=== PATIENT | male | born 1970 | race Caucasian/White ===

== ENCOUNTER 2023-01-13 15:56 | Outpatient (OUT) | payer OTHER, MEDICAID, SELFPAY ==
[2023-01-13 16:40] LABS: Anion Gap 14.7; BUN Creatinine Ratio 22.5; Calcium 9.9 mg/dL (8.5-10.1); Carbon Dioxide 24.6 mmol/L (21.0-32.0); Chloride 100 mmol/L (98-107); Estimated GFR (African America >60 (>=60); Estimated GFR (Non-African Ame >60 (>=60); Glucose 247 mg/dL (74-106); Potassium 4.3 mmol/L (3.5-5.1); Sodium 135 mmol/L (136-145)
[2023-01-13 16:43] LABS: Estimated Average Glucose 186 mg/dL; Glycohemoglobin A1C 8.1 % (4.5-6.2)
== END 2023-01-13 15:57 | disposition home or self-care (01) ==
PROVIDERS: PCP Nurse Practitioner; Visit Provider Nurse Practitioner
DX: E11.9 Type 2 diabetes mellitus without complications (principal)
CPT/HCPCS: 36415; 80048; 83036

== ENCOUNTER 2023-08-06 14:03 | Emergency (ER) | payer OTHER, MEDICAID, SELFPAY ==
[2023-08-06 14:06] VITALS: BP 182/100; PULSE 74; RESP 20; O2SAT 97; BMI 39.5
--- NOTE | 2023-08-06 14:16 | ED_ITS ---
HPI - Dental/Oral General Chief complaint: Dental/Oral Stated complaint: Dental Pain Time Seen by Provider: 08/06/23 14:04 Source: patient Mode of arrival: walk-in Limitations: no limitations History of Present Illness HPI Narrative: Patient is a 52-year-old male with a history of diabetes who presents to the ER for pain in tooth #14 and 15. He is currently receiving chemotherapy and states his teeth are rotting as a result. He has multiple dental caries noted diffusely throughout the mouth. No drainage, fevers or vomiting. No difficulty swallowing. He states he has had Pain and swelling for 3 days. Related Data Home Medications Medication Instructions Recorded Confirmed dapagliflozin propanediol 10 mg 10 mg PO DAILY 08/06/23 08/06/23 tablet (Farxiga) insulin glargine 100 unit/mL (3 35 unit subcut BID 08/06/23 08/06/23 mL) subcutaneous pen (Lantus Solostar U-100 Insulin) lisinopril 10 mg tablet mg 08/06/23 lisinopril 20 mg tablet 20 mg PO DAILY 08/06/23 08/06/23 Previous Rx's Medication Instructions Recorded amoxicillin 500 mg capsule 500 mg PO TID 10 days #30 caps 08/06/23 hydrocodone 5 mg-acetaminophen 325 1 tab PO Q6H PRN pain 3 days #12 08/06/23 mg tablet tabs Allergies Allergy/AdvReac Type Severity Reaction Status Date / Time No Known Drug Allergies Allergy Verified 08/06/23 14:10 Review of Systems ROS Constitutional Denies: fever or chills Ears, nose, mouth, and throat Denies: throat pain or nasal congestion Cardiovascular Denies: chest pain Respiratory Denies: shortness of breath or cough Gastrointestinal Denies: nausea, vomiting or difficulty swallowing Integumentary/Breast Denies: rash Neurological Denies: headache Hematologic/Lymphatic Denies: easy bruising or easy bleeding PFSH PFSH Social History Smoking status: Never smoker Exam Narrative Exam Narrative: Gen.: Awake, alert, in no distress Head: Normocephalic, atraumatic ENT: Moist mucous membranes, No mandibular or maxillary swelling. Diffuse dental caries noted with tenderness and mild swelling of the gums around tooth #14 and 15 with teeth eroded to the gumline. Root exposed. No abscess or drainage noted. No redness or swelling under the tongue. Airway widely open and patent with no trismus or drooling. Respiratory: No respiratory distress Extremities: Moves extremities equally Psych: Normal mood and affect Neuro: No focal neuro deficit Skin: Warm, dry, intact Constitutional Vital Signs, click to edit/add: Last Vital Signs Pulse 74 08/06/23 14:06 Resp 20 08/06/23 14:06 BP 182/100 H 08/06/23 14:06 Pulse Ox 97 08/06/23 14:06 Course Vital Signs Vital signs: Vital Signs Pulse Rate 74 08/06/23 14:06 Respiratory Rate 20 08/06/23 14:06 Blood Pressure 182/100 H 08/06/23 14:06 Pulse Oximetry 97 08/06/23 14:06 Pulse Rate 74 08/06/23 14:06 Respiratory Rate 20 08/06/23 14:06 Blood Pressure 182/100 H 08/06/23 14:06 Pulse Oximetry 97 08/06/23 14:06 MDM - Dental/Oral MDM Narrative Medical decision making narrative: Patient treated for dental caries with short course of analgesics, OARRS reviewed. He was given topical analgesia and amoxicillin for antibiotic co verage. Follow-up dental and return to the ER if symptoms change or worsen. No evidence of dental abscess on exam. I, Dr Alarcon, have reviewed the above progress note and course of action in the ER; agree with the above. I have gone over history and physical, and discussed disposition and treatment plan with the patient. Medical Records Attestation: I reviewed the patient's medical records. Discharge Plan Discharge Chief Complaint: Dental/Oral Clinical Impression: Dental caries, Toothache Patient Disposition: Home, Self-Care Time of Disposition Decision: 14:13 Condition: Good Prescriptions / Home Meds: New amoxicillin 500 mg capsule 500 mg PO TID 10 Days Qty: 30 0RF hydrocodone-acetaminophen 5-325 mg tablet 1 tab PO Q6H PRN (Reason: pain) 3 Days Qty: 12 0RF Rx Instructions: DX: K08.89 No Action dapagliflozin propanediol [Farxiga] 10 mg tablet 10 mg PO DAILY lisinopril 20 mg tablet 20 mg PO DAILY lisinopril 10 mg tablet insulin glargine [Lantus Solostar U-100 Insulin] 100 unit/mL (3 mL) insulin pen 35 unit SUBCUT BID Instructions: Toothache (ED) Additional Instructions: Follow up with your dentist Stand Alone Forms: Portal Instructions Referrals: Buffy Chung NP [Primary Care Provider] - 1 week Discharge Date/Time: 08/06/23 14:24
[2023-08-06] MEDS: BENZOCAINE 30 ML, lidocaine HCL 15 ML MM (14:21)
== END 2023-08-06 14:24 | disposition home or self-care (01) ==
PROVIDERS: Emergency Provider Emergency Medicine; PCP Nurse Practitioner
DX: K02.9 Dental caries, unspecified (principal); K08.89 Other specified disorders of teeth and supporting structures; E11.9 Type 2 diabetes mellitus without complications; Z79.899 Other long term (current) drug therapy; Z79.4 Long term (current) use of insulin
CPT/HCPCS: 99283

== ENCOUNTER 2023-08-07 16:15 | Outpatient (OUT) | payer OTHER, MEDICAID, SELFPAY ==
[2023-08-07 16:43] LABS: Bilirubin Urine NEGATIVE (NEGATIVE); Blood Urine NEGATIVE (NEGATIVE); Clarity Urine CLEAR (CLEAR); Color Urine YELLOW (YELLOW); Glucose Urine UA >=1000 mg/dL (NEGATIVE); Ketones Urine NEGATIVE (NEGATIVE); Leukocyte Esterase Urine NEGATIVE (NEGATIVE); Nitrite Urine NEGATIVE (NEGATIVE); Protein Urine NEGATIVE (NEG/TRACE); Specific Gravity Urine 1.015 (1.005-1.025); pH Urine 5.5 (5.0-9.0)
[2023-08-07 16:51] LABS: Creatinine Urine Random 77.04 mg/dL (20.00-300.00); Microalbum Creatinine Ratio Ur 51.9 mg/g (0.0-29.9)
[2023-08-07 17:02] LABS: Urine Microscopic Indicated NO
[2023-08-07 17:28] LABS: Prostate Specific Antigen Dx 0.86 ng/mL (<=4.00)
== END 2023-08-07 16:16 | disposition home or self-care (01) ==
LOC: LAB 16:17
PROVIDERS: PCP Nurse Practitioner; Visit Provider Nurse Practitioner
DX: K21.9 Gastro-esophageal reflux disease without esophagitis (principal); I10 Essential (primary) hypertension; Z12.5 Encounter for screening for malignant neoplasm of prostate; E11.65 Type 2 diabetes mellitus with hyperglycemia; Z79.4 Long term (current) use of insulin; C92.10 Chronic myeloid leukemia, BCR/ABL-positive, not having achieved remission; E87.1 Hypo-osmolality and hyponatremia; E78.2 Mixed hyperlipidemia
CPT/HCPCS: 36415; 81003; 82043; 82570; 84153

== ENCOUNTER 2023-09-11 15:19 | Emergency (ER) | payer OTHER, SELFPAY ==
[2023-09-11 15:43] VITALS: BP 122/87; PULSE 69; TEMP 36.4; O2SAT 99; BMI 39.3
--- NOTE | 2023-09-11 16:13 | XR_ITS ---
The [address] [address] Patient Name: DERRELL MERRITT MRN: [id number] date: 1970 Sex: M Assigned Patient Location: ED.MAIN Current Patient Location: Accession/Order Number: [id number] Exam Date: 09/11/2023 16:03 Report Date: 09/11/2023 16:30 At the request of: KATHERINE PIERRE Procedure: XR foot RT min 3V Exam: Radiographs: XR foot RT min 3V Reason for exam: pain Comparison: None XR/XR foot RT min 3V IMPRESSION: Mild degenerative changes scattered throughout the right foot. Atherosclerotic calcifications. Remainder of the right foot radiographs is unremarkable. Electronically authenticated by: MOUNIKA TEE Date: 09/11/2023 16:30
--- NOTE | 2023-09-11 16:17 | ED_ITS ---
HPI - Extremity Problem General Chief complaint: Extremity Problem, Nontraumatic Stated complaint: lower extremity pain Time Seen by Provider: 09/11/23 16:14 Source: patient Mode of arrival: walk-in Limitations: no limitations History of Present Illness HPI Narrative: This patient is here for evaluation of pain on the plantar surface of his right foot. He is not known to have any injury trauma or change in activity. He has no history of gout. The pain is on the plantar surface only. It does not hurt unless he is standing on it. He he is known not noticed any redness or deformity. It is on the plantar surface and not the medial surface of the metatarsal phalangeal joint. He has no pain in his ankles or his other joints. He was triaged to x-ray by the nursing staff. Related Data Home Medications ?Medication ?Instructions ?Recorded ?Confirmed dapagliflozin propanediol 10 mg 10 mg PO DAILY 08/06/23 09/11/23 tablet (Farxiga) insulin glargine 100 unit/mL (3 35 unit subcut BID 08/06/23 09/11/23 mL) subcutaneous pen (Lantus Solostar U-100 Insulin) lisinopril 20 mg tablet 20 mg PO DAILY 08/06/23 09/11/23 chemo trial drug 1 pill PO DAILY 09/11/23 09/11/23 Allergies Allergy/AdvReac Type Severity Reaction Status Date / Time No Known Drug Allergies Allergy Verified 09/11/23 15:41 PFSH PFS Social History Smoking status: Never smoker Exam Narrative Exam Narrative: Awake alert pleasant. The dorsal surface of the foot is completely normal. I can manipulate the great toe with no symptomatic discomfort whatsoever there is no erythema or swelling in this joint. There is no pain over the entire plantar surface of the foot except just proximal to the great toe metatarsophalangeal joint. There is a lot of callus formation that is developed over the years in this area and the point of pressure bearing when he walks. Constitutional Vital Signs, click to edit/add: Last Vital Signs Temp 97.5 F L 09/11/23 15:43 Pulse 69 09/11/23 15:43 Resp 14 09/11/23 15:43 BP 122/87 09/11/23 15:43 Pulse Ox 99 04/04/24 15:43 O2 Del Method Room Air 09/11/23 15:43 Course Vital Signs Vital signs: Vital Signs Temperature 97.5 F L 09/11/23 15:43 Pulse Rate 69 09/11/23 15:43 Respiratory Rate 14 09/11/23 15:43 Blood Pressure 122/87 09/11/23 15:43 Pulse Oximetry 99 09/11/23 15:43 Oxygen Delivery Method Room Air 09/11/23 15:43 Temperature 97.5 F L 09/11/23 15:43 Pulse Rate 69 09/11/23 15:43 Respiratory Rate 14 09/11/23 15:43 Blood Pressure 122/87 09/11/23 15:43 Pulse Oximetry 99 09/11/23 15:43 Oxygen Delivery Method Room Air 09/11/23 15:43 MDM - Extremity (Nontraumatic) MDM Narrative Medical decision making narrative: Patient presents with pain on the plantar surface of the foot. There are some prominent sesamoid bones at that joint and this is where he is point tender and he has a lot of callus formation there. I am to refer him to podiatry. We did not see any fractures there is no evidence of gout or other joint involvement. 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 May use anti-inflammatories Referrals: Buffy Chung NP [Primary Care Provider] - 1 week
== END 2023-09-11 16:27 | disposition home or self-care (01) ==
PROVIDERS: Emergency Provider Emergency Medicine Emergency Medical Services; PCP Nurse Practitioner
DX: M79.671 Pain in right foot (principal); Z79.4 Long term (current) use of insulin; Z79.60 Long term (current) use of unspecified immunomodulators and immunosuppressants
CPT/HCPCS: 73630; 99283

== ENCOUNTER 2023-10-10 18:09 | Emergency (ER) | payer OTHER, SELFPAY ==
[2023-10-10 18:14] VITALS: BP 176/87; PULSE 64; TEMP 36.3; O2SAT 96; BMI 37.9
--- OUTSIDE RECORDS SUMMARY | 2023-10-10 18:29 | XMS_ITS | CCD ---
Author Organization [facility] Care Team Providers Care Gas Engineer Name Role Phone Emma Tuttle RN Unavailable Mare Howell MD, PhD, Sudipto Unavailable Aman Pack Primary Care Provider [phone] AICHHOLZ, POLYSOMNOGRAPHY TECHNOLOGIST BUFFY Admitting Unavailable AICHHOLZ, POLYSOMNOGRAPHY TECHNOLOGIST BUFFY Attending Unavailable AICHHOLZ, POLYSOMNOGRAPHY TECHNOLOGIST BUFFY Primary Care Unavailable AICHHOLZ, POLYSOMNOGRAPHY TECHNOLOGIST BUFFY Admitting Unavailable AICHHOLZ, POLYSOMNOGRAPHY TECHNOLOGIST BUFFY Attending Unavailable AICHHOLZ, POLYSOMNOGRAPHY TECHNOLOGIST BUFFY Primary Care Unavailable AICHHOLZ, POLYSOMNOGRAPHY TECHNOLOGIST BUFFY Consulting Unavailable AICHHOLZ, POLYSOMNOGRAPHY TECHNOLOGIST BUFFY Admitting Unavailable AICHHOLZ, POLYSOMNOGRAPHY TECHNOLOGIST BUFFY Attending Unavailable AICHHOLZ, POLYSOMNOGRAPHY TECHNOLOGIST BUFFY Primary Care Unavailable AICHHOLZ, POLYSOMNOGRAPHY TECHNOLOGIST BUFFY Consulting Unavailable AICHHOLZ, POLYSOMNOGRAPHY TECHNOLOGIST BUFFY Primary Care Unavailable DR HUONG HERNÁNDEZ Admitting Unavailable DR HUONG HERNÁNDEZ Attending Unavailable DR SHANEL GOMEZ Consulting Unavailable LUCAS .JENNIFER Consulting Unavailabl e AICHHOLZ, POLYSOMNOGRAPHY TECHNOLOGIST BUFFY Primary Care Unavailable DR HUONG HERNÁNDEZ Admitting Unavailable DR HUONG HERNÁNDEZ Attending Unavailable VINAYAK .DR BORJA Consulting Unavailable AICHHOLZ, POLYSOMNOGRAPHY TECHNOLOGIST BUFFY Admitting Unavailable AICHHOLZ, POLYSOMNOGRAPHY TECHNOLOGIST BUFFY Attending Unavailable AICHHOLZ, POLYSOMNOGRAPHY TECHNOLOGIST BUFFY Primary Care Unavailable Emma Tuttle RN Unavailable Mare Howell MD, PhD, Sudipto Unavailable [phone] Aman Pack Primary Care Provider ELGAFY, ANGUS Referring Unavailable ELGAFY, ANGUS Referring Unavailable ELGAFY ANGUS Attending Unavailable Emma Tuttle RN Unavailable Unavailabl e Buffy Chung Primary Care Provider Buffy Chung Attending Provider [phone] Buffy Chung Referring Provider Buffy Chung Primary Care Unavailable Buffy Chung Attending Unavailable Buffy Chung Referring Unavailable AichBuffy vasquez J Admitting Unavailable YAN DURHAM Attending Unavailable MARVA YAN Trip Referring Unavailable AICHHOLLurdes, BUFFY Abiodun Primary Care Unavailable BUFFY CHUNG Attending Unavailable BUFFY CHUNG Attending Unavailable YAN DURHAM Attending Unavailable YAN DURHAM Referring Unavailable AICHHOLZ, BUFFY J Primary Care Unavailable Nigel Solorzano Attending Unavailable Nigel Solorzano Referring Unavailable AICHHOLBUFFY Chatman Primary Care Unavailable Aichholz WASTE RECLAIMER-Buffy ALFARO Primary Care Provider BUFFY CHUNG Referring Unavailable AICHHOLBUFFY Chatman Primary Care Unavailable YAN DURHAM Attending Unavailable BUFFY CHUNG Referring Unavailable AICHHOLLurdes, BUFFY J Primary Care Unavailable AichBuffy vasquez CNP Primary Care Provider [phone] SIRENA AMAN A Primary Care Unavailable LYNDA, SUDIPTO Referring Unavailable NADERER, AMAN A Primary Care Unavailable LYNDA, SUDIPTO Referring Unavailable LYNDA, SUDIPTO Referring Unavailable NADERERAMAN A Primary Care Unavailable NADERER, AMAN A Primary Care Unavailable LYNDA, SUDIPTO Attending Unavailable LYNDA, SUDIPTO Referring Unavailable LYNDA, SUDIPTO Referring Unavailable NADERERAMAN A Primary Care Unavailable KYLEE DALAL Attending Unavailable MELYERER, AMAN A Primary Care Unavailable LYNDA, SUDIPTO Referring Unavailable NADERER, AMAN A Primary Care Unavailable LYNDA, SUDIPTO Referring Unavailable NADERER, AMAN A Primary Care Unavailable KOBI LEE Attending Unavailable SIRENA AMAN A Primary Care Unavailable LYNDA, SUDIPTO Referring Unavailable NADERER, AMAN A Primary Care Unavailable MULUGETA, KYLEE Attending Unavailable MULUGETA, KYLEE Referring Unavailable NADERER, AMAN A Primary Care Unavailable AICHHOLZ, BUFFY BERNSTEIN Primary Care Unavailable LYNDA, SUDIPTO Referring Unavailable AICHHOLZ, BUFFY BERNSTEIN Primary Care Unavailable LYNDA, SUDIPTO Attending Unavailable LYNDA, SUDIPTO Referring Unavailable LYNDA, SUDIPTO Referring Unavailable NADERER, AMAN A Primary Care Unavailable LYNDA, SUDIPTO Referring Unavailable NADERER, AMAN A Primary Care Unavailable NADERER, AMAN A Primary Care Unavailable LYNDA, SUDIPTO Referring Unavailable LYNDA, SUDIPTO Attending Unavailable LYNDA, SUDIPTO Referring Unavailable NADERER, AMAN A Primary Care Unavailable MULUGETA, KYLEE Referring Unavailable NADERER, AMAN A Primary Care Unavailable NADERER, AMAN A Primary Care Unavailable LYNDA, SUDIPTO Referring Unavailable NADERER, AMAN A Primary Care Unavailable LYNDA, SUDIPTO Referring Unavailable NADERER, AMAN A Primary Care Unavailable LYNDA, SUDIPTO Referring Unavailable NADERER, AMAN A Primary Care Unavailable LYNDA, SUDIPTO Referring Unavailable MULUGETA, KYLEE Attending Unavailable MULUGETA, KYLEE Referring Unavailable NADERER, AMAN A Primary Care Unavailable NADERER, AMAN A Primary Care Unavailable LYNDA, SUDIPTO Referring Unavailable LYNDA, SUDIPTO Attending Unavailable NADERER, AMAN A Primary Care Unavailable LYNDA, SUDIPTO Referring Unavailable AICHHOLZ, BUFFY BERNSTEIN Primary Care Unavailable LYNDA, SUDIPTO Referring Unavailable AICHHOLZ, BUFFY BERNSTEIN Primary Care Unavailable LYNDA, SUDIPTO Referring Unavailable LYNDA, SUDIPTO Attending Unavailable NADERER, AMAN A Primary Care Unavailable LYNDA, SUDIPTO Referring Unavailable MULUGETA, KYLEE Attending Unavailable NADERER, AMAN A Primary Care Unavailable NADERER, AMAN A Primary Care Unavailable JESUS, CRUZITO Referring Unavailable LYNDA, SUDIPTO Referring Unavailable NADERER, AMAN A Primary Care Unavailable AICHHOLZ, BUFFY BERNSTEIN Primary Care Unavailable LYNDA, SUDIPTO Referring Unavailable LYNDA, SUDIPTO Referring Unavailable JOSERAMAN A Primary Care Unavailable NADERER, AMAN A Primary Care Unavailable DERRELL CONSTANTINO Admitting Unavailable DERRELL CONSTANTINO Attending Unavailable NADEREAMAN Villafana Primary Care Unavailable SUBHAS, RAFAEL Admitting Unavailable SUBHAS, RAFAEL Attending Unavailable SIMPFENDORFER, MARY Admitting Unavailable SIMPFENDORFER, MARY Attending Unavailable NADMORISR, AMAN A Primary Care Unavailable Allergies Allergy Classification Reported Allergen(s) Allergy Type Date of Onset Reaction(s) Facility (1 source) ALLERGIES NOT ON FILE; Translations: [ALLERGIES NOT ON FILE] Propensity to adverse reactions (disorder) [facility] Repository (4 sources) Morphine; Translations: [MORPHINE] Drug Allergy 3 Nausea And Vomiting [facility] Repository (12 sources) OPIOIDS - MORPHINE ANALOGUES; Translations: [OPIOIDS - MORPHINE ANALOGUES] Propensity to adverse reactions to drug (disorder) 3 Vomiting, GI Upset, Nausea And Vomiting [facility] Repository Medications Current Medications Medication Drug Class(es) Dates Sig (Normalized) Sig (Original) amLODIPine 10 mg oral tablet (20 sources) Dihydropyridine Calcium Channel Radha Start: 05-22-2023 End: 08-20-2023 amLODIPine (NORVASC) 10 mg tablet Take 10 mg by mouth. 0 05/22/2023 Active Start: 03-20-2023 take 1 tablet by juan th in the morning amLODIPine (NORVASC) 5 mg tablet Indications: Primary hypertension Take 1 tablet (5 mg total) by mouth in the morning. 90 tablet 3 03/20/2023 Active Start: 05-14-2022 End: 08-12-2022 take 1 tablet by mouth once daily amLODIPine (NORVASC) 10 mg tablet Indications: CML (chronic myeloid leukemia) (HCC) Take 1 tablet by mouth once daily. 30 tablet 2 05/14/2022 Active Comment on above: Take 1 tablet by juan th once daily. Take 10 mg by mouth. dapagliflozin 10 mg oral tablet (12 sources) Sodium-Glucose Cotransporter 2 Inhibitor Start: 023 take 1 tablet by mouth once daily at breakfast dapagliflozin propanediol (FARXIGA) 10 mg tablet Take 1 tablet by mouth daily with breakfast. 90 tablet 3 04/17/2023 Active Comment on above: Take 1 tablet by juan th daily with breakfast. flash glucose scanning reader (FREESTYLE MARY ANN 2 READER) (20 sources) Start: flash glucose scanning reader (FREESTYLE MARY ANN 2 READER) Check glucose 4 times daily 1 Each 0 03/19/2022 Active Comment on above: Check glucose 4 time s daily flash glucose sensor (FREESTYLE MARY ANN 2 SENSOR) kit (20 sources) Start: flash glucose sensor (FREESTYLE MARY ANN 2 SENSOR) kit USE DIRECTED EVERY 14 DAYS 6 Each 3 03/21/2023 Active Start: 03-19-2022 End: 03-21-2023 flash glucose sensor (FREEST YLE MARY ANN 2 SENSOR) kit Check glucose 4 times daily 6 Each 3 03/19/2022 03/21/2023 Discontinued Start: 03-19-2022 flash glucose sensor (FREESTYLE MARY ANN 2 SENSOR) kit Check glucose 4 times daily 6 Each 3 03/19/2022 Active Comment on above: Check glucose 4 time s daily USE DIRECTED EVER Y 14 DAYS fluocinonide 0.0005 mg/mg topical ointment (20 sources) Corticosteroid Start: 12-22-2020 fluocinonide (LIDEX) 0.05 % ointment Apply to affected areas of rash twice daily x 2 weeks, then once daily x 2 weeks. NOT for face, armpits, or groin 60 g 1 12/22/2020 Active Comment on above: Apply to affected ar eas of rash twice daily x 2 weeks, then once daily x 2 weeks. NOT for face, armpits, or groin FREESTYLE MARY ANN 2 SENSOR kit (1 source) Start: 12-12-2022 FREESTYLE MARY ANN 2 SENSOR kit every 14 (fourteen) days. 0 12/12/2022 Active ibuprofen 800 mg oral tablet (20 sources) Nonsteroidal Anti-inflammatory Drug Start: 10-24-2015 ibuprofen (MOTRIN) 800 mg tablet 3 ml insulin glargine 100 unt/ml pen injector (20 sources) Insulin Analog Start: 10-15-2022 insulin glargine (LANTUS SOLOSTAR U-100 INSULIN) 100 unit/mL (3 mL) Inject 35 Units subcutaneously twice daily. 75 mL 3 10/15/2022 Active Start: 10-15-2022 insulin glargi ne (LANTUS SOLOSTAR U-100 INSULIN) 100 unit/mL (3 mL) Inject 35 Units subcutaneously twice daily. 75 mL 3 10/15/2022 Active inject 35 [IU] by lopez bcutaneous injection in the morning insulin glargine (LANTUS, BASAGLAR) 100 unit/mL (3 mL) insulin pen Inject 35 Units under the skin in the morning and 35 Units before bedtime. 0 Active Comment on above: Inject 35 Units subc utaneously twice daily. 3 ml insulin lispro 100 unt/ml pen injector (19 sources) Insulin Analog Start: 06-17-2023 insulin lispro (HUMALOG KWIKPEN) 100 unit/mL Inject 15 units with breakfast and lunch and 20 units with dinner plus sliding scale (Max daily dose of 91 units daily) 90 mL 3 06/17/2023 Active Start: 04-17-2023 insulin lispro (HUMALOG KWIKPEN) 100 unit/mL Inject 15 units with breakfast and lunch and 25 units with dinner plus sliding scale (Max daily dose of 91 units daily) 90 mL 3 04/17/2023 Active Start: 10-30-2022 insulin lispro (HumaLOG) 100 unit/mL insulin pen 3 (three) times a day with meals. Sliding scale 0 10/30/2022 Active Start: 10-30-2022 End: 04-17-2023 insulin lispro (HUMALOG KWIK PEN) 100 unit/mL Inject 10 units with breakfast and lunch and 22 units with dinner plus sliding scale (Max daily dose of 78 units daily) 60 mL 3 10/30/2022 04/17/2023 Discontinued Start: 03-29-2022 inject 8 [IU] by sub cutaneous injection three times daily before mealtime insulin lispro (HUMALOG KWIKPEN) 100 unit/mL Inject 8 Units subcutaneously three times daily before meals. 30 mL 1 03/29/2022 Active Comment on above: Inject 8 Units subcu taneously three times daily before meals. Inject 15 units with breakfast and lunch and 25 units with dinner plus sliding scale (Max daily dose of 91 units daily) Inject 10 units with breakfast and lunch and 22 units with dinner plus sliding scale (Max daily dose of 78 units daily) Inject 15 units with breakfast and lunch and 20 units with dinner plus sliding scale (Max daily dose of 91 units daily) Insulin Syringe-Needle U-100 1 mL 25 x 1 syrg (20 sources) Start: 12-14-19 Insulin Syringe-Needle U-100 1 mL 25 x 1 syrg Use 1 syringe once daily to administer peg-interferon dose. 100 Syringe 5 12/14/2019 Active Comment on above: Use 1 syringe once d aily to administer peg-interferon dose. 10 ml lidocaine hydrochloride 20 mg/ml injection (1 source) Antiarrhythmic, Amide Local Anesthetic Start: 10-02-19 End: 10-03-19 lidocaine (PF) 20 mg/mL (2 %) 100-400 mg injection (XYLOCAINE) lisinopril 20 mg oral tablet (20 sources) Angiotensin Converting Enzyme Inhibitor Start: 09-10-19 take 1 tablet by mouth once daily lisinopril (ZESTRIL) 20 mg tablet Take 20 mg by mouth once daily. 0 09/09/2022 Active Comment on above: Take 20 mg by mouth once daily. NON FORMULARY (1 source) pravastatin sodium 80 mg oral tablet (20 sources) HMG-CoA Reductase Inhibitor Start: 08-29-19 take 1 tablet by mouth once daily pravastatin (PRAVACHOL) 80 mg tablet Take 1 tablet by mouth once daily. 0 08/29/2023 Active Start: 08-12-2022 End: 08-29-2023 take 1 tablet by mouth once daily pravastatin (PRAVACHOL) 40 mg tablet Take 1 tablet by mouth once daily. 0 10/15/2022 08/29/2023 Discontinued End: 10-15-2022 pravastatin sodium (PRAVASTA TIN ORAL) Take by mouth once daily. 0 10/15/2022 Discontinued pravastatin sodi um (PRAVASTATIN ORAL) Take by mouth once daily. 0 Active Comment on above: Take by mouth once d aily. Take 1 tablet by juan th once daily. 125 ml sodium chloride 9 mg/ml prefilled syringe (20 sources) Start: 07-27-2020 End: 04-23-2024 sodium chloride 0.9 % (flush) 10 mL (BD POSIFLUSH) Completed/Discontinued Medications Medication Drug Class(es) Dates Sig (Normalized) Sig (Original) insulin glargine,hum.rec.a nlog (LANTUS SUBCUTANEOUS) (20 sources) End: 10-15-2022 inject 35 [IU] by subcutaneous injection twice daily insulin glargine,hum.rec.anlo g (LANTUS SUBCUTANEOUS) Inject 35 Units subcutaneously twice daily. 0 10/15/2022 Discontinued inject 50 [IU] by lopez bcutaneous injection once daily insulin glargine,hum.rec.anlog (LANTUS SUBCUTANEOUS) Inject 50 Units subcutaneously once daily. 0 Active inject 30 [IU] by lopez bcutaneous injection once daily insulin glargine,hum.rec.anlog (LANTUS SUBCUTANEOUS) Inject 30 Units subcutaneously once daily. 0 Active Comment on above: Inject 30 Units subc utaneously once daily. Inject 50 Units subc utaneously once daily. Inject 35 Units subc utaneously twice daily. insulin lispro (HUMALOG KWIKPEN) 100 unit/mL (20 sources) Start: 04-17-2023 insulin lispro (HUMALOG KWIKPEN) 100 unit/mL Inject 15 units with breakfast and lunch and 25 units with dinner plus sliding scale (Max daily dose of 91 units daily) 90 mL 3 04/17/2023 Active Start: 10-30-2022 End: 04-17-2023 insulin lispro (HUMALOG KWIK PEN) 100 unit/mL Inject 10 units with breakfast and lunch and 22 units with dinner plus sliding scale (Max daily dose of 78 units daily) 60 mL 3 10/30/2022 04/17/2023 Discontinued Start: 10-30-2022 insulin lispro (HUMALOG KWIKPEN) 100 unit/mL Inject 10 units with breakfast and lunch and 22 units with dinner plus sliding scale (Max daily dose of 78 units daily) 60 mL 3 10/30/2022 Active Start: 10-15-2022 End: 10-30-2022 insulin lispro (HUMALOG KWIK PEN) 100 unit/mL Inject 10 units with breakfast and lunch and 18 units with dinner plus sliding scale (Max daily dose of 74 units daily) 60 mL 3 10/15/2022 10/30/2022 Discontinued Start: 10-15-2022 insulin lispro (HUMALOG KWIKPEN) 100 unit/mL Inject 10 units with breakfast and lunch and 18 units with dinner plus sliding scale (Max daily dose of 74 units daily) 60 mL 3 10/15/2022 Active Start: 07-30-2022 End: 10-15-2022 insulin lispro (HUMALOG KWIK PEN) 100 unit/mL Inject 10 units with breakfast and lunch and 14 units with dinner plus sliding scale (Max daily dose of 64 units daily) 60 mL 3 07/30/2022 10/15/2022 Discontinued (Adjust Sig - Block E-Cancel) Start: 07-30-2022 insulin lispro (HUMALOG KWIKPEN) 100 unit/mL Inject 10 units with breakfast and lunch and 14 units with dinner plus sliding scale (Max daily dose of 64 units daily) 60 mL 3 07/30/2022 Active Start: 03-29-2022 End: 07-30-2022 inject 8 [IU] by subcutaneous injection three times daily before mealtime insulin lispro (HUMALOG KWIKPEN) 100 unit/mL Inject 8 Units subcutaneously three times daily before meals. 30 mL 1 03/29/2022 07/30/2022 Discontinued Start: 03-29-2022 inject 8 [IU] by sub cutaneous injection three times daily before mealtime insulin lispro (HUMALOG KWIKPEN) 100 unit/mL Inject 8 Units subcutaneously three times daily before meals. 30 mL 1 03/29/2022 Active Comment on above: Inject 8 Units subcu taneously three times daily before meals. Inject 10 units with breakfast and lunch and 14 units with dinner plus sliding scale (Max daily dose of 64 units daily) Inject 10 units with breakfast and lunch and 18 units with dinner plus sliding scale (Max daily dose of 74 units daily) Inject 10 units with breakfast and lunch and 22 units with dinner plus sliding scale (Max daily dose of 78 units daily) Inject 15 units with breakfast and lunch and 25 units with dinner plus sliding scale (Max daily dose of 91 units daily) meloxicam 7.5 mg oral tablet (20 sources) Nonsteroidal Anti-inflammatory Drug End: 07-15-2022 meloxicam (MOBIC) 7.5 mg tablet meloxicam 7.5 mg tablet 0 07/15/2022 Discontinued Comment on above: meloxicam 7.5 mg tab let omega-3 acid ethyl esters (detention) 1000 mg oral capsule (20 sources) Start: 06-22-2020 End: 10-02-2023 omega-3 acid ethyl esters (LOVAZA) 1 gram capsule Indications: CML (chronic myelocytic leukemia) (HCC) Take 2 capsules by mouth twice daily. 120 capsule 2 06/22/2020 10/02/2023 Discontinued (Discontinued by Patient) Comment on above: Take 2 capsules by m out twice daily. perflutren lipid microspheres 1.3 mL in NaCl (PF) 0.9% 10 mL injection (DEFINITY) (20 sources) Start: 01-23-2023 End: 04-16-2023 perflutren lipid microspheres 1.3 mL in NaCl (PF) 0.9% 10 mL injection (DEFINITY) Start: 01-23-2023 End: 04-23-2024 perflutren lipid microsphere s 1.3 mL in NaCl (PF) 0.9% 10 mL injection (DEFINITY) Start: 12-05-2022 End: 03-05-2024 perflutren lipid microsphere s 1.3 mL in NaCl (PF) 0.9% 10 mL injection (DEFINITY) Start: 10-30-2022 End: 01-29-2024 perflutren lipid microsphere s 1.3 mL in NaCl (PF) 0.9% 10 mL injection (DEFINITY) Start: 05-23-2022 End: 08-23-2023 perflutren lipid microsphere s 1.3 mL in NaCl (PF) 0.9% 10 mL injection (DEFINITY) Start: 01-14-2022 End: 04-15-2023 perflutren lipid microsphere s 1.3 mL in NaCl (PF) 0.9% 10 mL injection (DEFINITY) Start: 11-27-2021 End: 02-26-2023 perflutren lipid microsphere s 1.3 mL in NaCl (PF) 0.9% 10 mL injection (DEFINITY) Start: 09-10-2021 End: 12-10-2022 perflutren lipid microsphere s 1.3 mL in NaCl (PF) 0.9% 10 mL injection (DEFINITY) Start: 03-29-2021 End: 09-03-2021 perflutren lipid microsphere s 1.3 mL in NaCl (PF) 0.9% 10 mL injection (DEFINITY) Start: 07-27-2020 End: 10-27-2021 perflutren lipid microsphere s 1.3 mL in NaCl (PF) 0.9% 10 mL injection (DEFINITY) Problems Active Problems Problem Classification Problem Date Documented Da te Episodic/Chronic Cardiac dysrhythmias (2 sources) Palpitations; Translations: [Palpitations] Onset: 06-30-2023 Episodic Diabetes mellitus with complications (10 sources) Type II diabetes mellitus uncontrolled; Translations: [Type 2 diabetes mellitus with hyperglycemia] Onset: 08-06-2022 Chronic Disorders of lipid metabolism (6 sources) Mixed hyperlipidemia; Translations: [Mixed hyperlipidemia] Onset: 05-13-2022 Chronic Essential hypertension (6 sources) Essential hypertension; Translations: [Essential (primary) hypertension] Onset: 05-13-2022 Chronic Leukemias (20 sources) Chronic myeloid leukemia; Translations: [Chronic myeloid leukemia, BCR/ABL-positive, not having achieved remission] Onset: 04-06-2012 Chronic Other and ill-defined heart disease (3 sources) Cardiomegaly; Translations: [Cardiomegaly] Onset: 06-30-2023 Chronic Other injuries and conditions due to external causes (1 source) Foreign body on external eye, part unspecified, unspecified eye, sequela; Translations: [Foreign body on external eye, part unspecified, unspecified eye, sequela] Onset: 07-31-2023 Episodic Other nutritional; endocrine; and metabolic disorders (1 source) Morbid (severe) obesity due to excess calories; Translations: [MORBID SEVERE OBES D/T EXCESS JIMENA] Onset: 05-13-2022 Chronic Other nutritional; endocrine; and metabolic disorders (1 source) Body mass index (BMI) 39.0-39.9, adult; Translations: [BODY MASS INDEX BMI 39.0-39.9 ADULT] Onset: 05-13-2022 Chronic Jossy-; endo-; and myocarditis; cardiomyopathy (except that caused by tuberculosis or sexually transmitted disease) (5 sources) Other hypertrophic cardiomyopathy; Translations: [Hypertrophic cardiomyopathy] Onset: 10-30-2022 03-20-2023 Chronic Residual codes; unclassified (1 source) Sleep apnea, unspecified; Translations: [SLEEP APNEA UNSPECIFIED] Onset: 05-13-2022 Chronic Residual codes; unclassified (4 sources) Obstructive sleep apnea (adult) (pediatric); Translations: [OBSTRUCTIVE SLEEP APNEA] Onset: 11-01-2021 Chronic Residual codes; unclassified (1 source) Obstructive sleep apnea syndrome; Translations: [Obstructive sleep apnea (adult) (pediatric)] Onset: 03-20-2023 03-20-2023 Chronic Residual codes; unclassified (1 source) Pain, unspecified; Translations: [Pain, unspecified] Onset: 09-11-2023 Episodic Spondylosis; intervertebral disc disorders; other back problems (2 sources) Spondylosis without myelopathy or radiculopathy, lumbar region; Translations: [Spondylosis without myelopathy or radiculopathy, lumbar region] Onset: 10-16-2022 Chronic Spondylosis; intervertebral disc disorders; other back problems (2 sources) Radiculopathy, lumbar region; Translations: [Radiculopathy, lumbar region] Onset: 10-15-2022 Episodic Unclassified (1 source) Pain in right shoulder; Translations: [Pain in right shoulder] Onset: 02-05-2023 Past or Other Problems Problem Classification Problem Date Documented Date Episodic/Chronic Abdominal pain (4 sources) Unspecified abdominal pain; Translations: [UNSPECIFIED ABDOMINAL PAIN] Onset: 11-21-2021 Episodic Other aftercare (1 source) Other manager exchange (current) drug therapy; Translations: [OTH ACCOUNT EXECUTIVE CURRENT DRUG THERAPY] Onset: 05-13-2022 Episodic Other aftercare (2 sources) electronic assembly (current) use of insulin; Translations: [PENITENTIARY CURRENT USE OF INSULIN] Onset: 05-13-2022 Episodic Other and ill-defined heart disease (1 source) Hypertrophic cardiomegaly ; Translations: [Cardiomegaly] Onset: 03-20-2023 Resolved: 03-20-2023 03-20-2023 Chronic Other connective tissue disease (1 source) Arthrodesis status; Translations: [ARTHRODESIS STATUS] Onset: 05-13-2022 Episodic Other connective tissue disease (1 source) Ganglion, right wrist; Translations: [GANGLION RIGHT WRIST] Onset: 05-13-2022 Episodic Other non-traumatic joint disorders (1 source) Pain in right shoulder; Translations: [Right shoulder pain, unspecified chronicity] Onset: 06-13-2023 Episodic Other screening for suspected conditions (not mental disorders or infectious disease) (5 sources) Encounter for screening for malignant neoplasm of prostate; Translations: [Abnormal electrocardiogram [ECG] [EKG]] Onset: 03-05-2023 10-12-2023 Episodic Other skin disorders (20 sources) Eruption; Translations: [Rash and other nonspecific skin eruption] Onset: 07-15-2017 07-15-2017 Episodic Other skin disorders (3 sources) Localized swelling, mass and lump, right upper limb; Translations: [LOC SWELL MASS LUMP RT UPPER LIMB] Onset: 05-12-2022 Episodic Residual codes; unclassified (1 source) Acquired absence of other specified parts of digestive tract; Translations: [ACQ ABSENCE OTH PART DIGESTV TRACT] Onset: 05-13-2022 Episodic Results Test Name Value Interpretation Reference Range Facility BONE MARROW ANALYSISon 10-02 CASE REPORT Normal [facility] Comment on above: Order Comment: Speci men Type: BONE MARROW SPECIMENOrdering Facility: [facility] Address: [address] [place] [address] Result Comment: Bone Marrow Pathology Report Case: [id number] Provider: William Howell MD, Collected: 10/03/2023 08:40 AM PhDOrdering Location: [place] [address] Received: 10/03/2023 10:29 AMPathologist: Gemma Torres MDSpecimens: A) - Bone Marrow, Aspirate, Left, Posterior, Iliac Crest B) - Bone Marrow, Biopsy, Left, Posterior, Iliac Crest C) - Bone Marrow, Clot, Left, Posterior, Iliac Crest D) - Blood Performed By: #### B MRT ####[facility] [id number] [place] [address] [place] [place] DIAGNOSIS COMMENT Normal [facility] Comment on above: Order Comment: Speci men Type: BONE MARROW SPECIMENOrdering Facility: [facility] Address: [address] [place] [address] Performed By: #### B MRT ####[facility] LABCLIA [id number] [place] [address] [place] FINAL DIAGNOSIS Normal [facility] Comment on above: Order Comment: Speci men Type: BONE MARROW SPECIMENOrdering Facility: [facility] Address: [address] [place] [address] Result Comment: A-C. Bone marrow, aspirate smear and core biopsy, with clot section:- Normocellular marrow (50-60%) with trilineage hematopoiesis.- Iron stores present.- See comment.D. Peripheral blood smear:- Eosinophilia and microcytosis without anemia.HJR 10/06/2023 Performed By: #### B MRT ####[facility] LABCLIA [id number] [address] [place] FINAL PERFORMING LAB Normal [facility] Comment on above: Order Comment: Speci men Type: BONE MARROW SPECIMENOrdering Facility: [facility] Address: [address] [place] [address] Result Comment: Diag nostic interpretation performed at [facility], [address] [place] [address] CLIA# [id number] Director: Tico Jeter M.D. Performed By: #### B MRT ####[facility] LABCLIA [id number] [address] [place] Performed By: #### F CLLP, FCLLRFLX ####[facility] LABCLIA [id number] [address] [place] GROSS DESCRIPTION Normal [facility] Comment on above: Order Comment: Michaeli men Type: BONE MARROW SPECIMENOrdering Facility: [facility] Address: [address] [place] [address] Result Comment: A. B one Marrow, Aspirate, Left, Posterior, Iliac CrestReceived are air-dried bone marrow aspirate smears. Submitted for light microscopy.B. Bone Marrow, Biopsy, Left, Posterior, Iliac CrestReceived in formalin is one segment of cylindrical tissue measuring 1.9 x 0.3 x 0.3 cm, dueñas-brown and of a firm consistency. Totally submitted in one cassette after decalcification.C. Bone Marrow, Clot, Left, Posterior, Iliac CrestReceived in formalin is one segment of red, hemorrhagic material measuring 1.8 x 1.5 x 0.6 cm. Totally submitted in one cassette.D. BloodReceived is a peripheral blood smear. Submitted for light microscopy.Gross examination performed at [facility], [facility] [place], [place] [id number] 10/03/2023 8:14 PM Performed By: #### B MRT ####[facility] LABCLIA [id number] [place] [id number] [place] MICROSCOPIC DESCRIPTION Normal [facility] Comment on above: Order Comment: Speci men Type: BONE MARROW SPECIMENOrdering Facility: [facility] Address: [address] [place] [address] [place] [address] Result Comment: JOSSY PHERAL BLOOD:CBC (10/01/2023 8:49 AM) Diff: AutoWBC 10.65 k/uL Neutrophils % 64Hemoglobin 15.5 g/dL Lymphocytes % 22.3MCV 79.8 fL Monocytes % 6.6RDW-CV 14.3 % Eosinophils % 5.9Platelet Count 271 k/uL Basophils % 0.8 Immature Granulocytes % 0.4Morphology/Interpretation: Microcytosis without anemia. Eosinophilia without leukocytosis.BONE MARROW ASPIRATE:Result Normal Range0 % Blasts 0-20 % Promyelocytes 1-553 % Myelos/Metas/Bands/Segs 32-726 % Eosinophils 1-60 % Basophils 0-13 % Monocytes 0-423 % Erythroid precursors 13-3714 % Lymphocytes 7-231 % Plasma cells 0-2 Myeloid/Erythro (1.5-4): 2.7 Cells counted: 400. Iron stain result: No particles, no ring sideroblasts. Specimen Quality: Cellular aspirate with rare particles. Megakaryocytes: Present with a predominantly unremarkable morphology. Erythropoiesis: Progressive maturation. Granulopoiesis: Progressive maturation.BONE MARROW BIOPSY: Adequacy: Adequate. Cellularity: Normal for age (50-60%) ME ratio: Normal. Hematopoiesis: Trilineage hematopoiesis. Megakaryocytes: Present. Megakaryocyte morphology: Predominantly unremarkable. Few small hypolobated forms present Lymphoid infiltrate: Not present. Bone trabeculae: Normal. Other: No lymphoid aggregates, granulomas or metastatic tumors present.CLOT SECTION: Marrow particles: Many. Morphology: Similar to biopsyANCILLARY TESTS: Flow cytometry: Performed. Cytogenetics: Pending. FISH: N/A Molecular: Buffy coat stored. Performed By: #### B MRT ####[facility] LABCLIA [id number] [place] [address] [place] [address] BIOPSY BONE MARROW (HEMO) on 10-03-2023 CT BIOPSY BONE MARROW (HEMO) Normal [facility] DNA EXTRACTION BONE MARROW ( BUFFY COAT)on 10-03-2023 DNA EXTRACTION BONE MARROW (BUFFY COAT) Normal [facility] Comment on above: Order Comment: Speci men Type: BONE MARROW SPECIMENOrdering Facility: [facility] Address: [address] [place] [address] Result Comment: This specimen was received and successfully processed for future DNA purification should molecular testing be needed. Specimens will be available for 3 years from date of collection.To order testing on this specimen for [facility] patients, please place an [facility] order for DNA and RNA Clinical Testing ([id number]). To order testing for patients outside of the [facility] system, please request DNA and RNA for Clinical Testing, order code [id number].If additional paperwork is required for testing, please send completed forms via secure email to . Performed By: #### N UCBUF ####[facility] LIMSCLIA [id number] [address] [place] FLOW CYTOMETRY FOR LEUKEMIA/ LYMPHOMA (FCLL) PERFORMABLEon 10-03-2023 FLOW CYTOMETRY ORDER STATUS See Results in chart under F case ID Normal [facility] Comment on above: Order Comment: Speci men Type: BONE MARROW SPECIMENOrdering Facility: [facility] Address: [address] [place] [address] Performed By: #### F CLLP, FCLLRFLX ####[facility] LABCLIA [id number] [address] [place] FLOW CYTOMETRY FOR LEUKEMIA/ LYMPHOMA (FCLL) REFLEXon 10-03-2023 DIAGNOSIS COMMENT Normal [facility] Comment on above: Order Comment: Speci men Type: BONE MARROW SPECIMENOrdering Facility: [facility] Address: [address] [place] [address] Result Comment: This assay is not designed to detect minimal residual disease, plasma cell neoplasms, or myeloid antigen maturational patterns.This test was developed and its performance characteristics determined by [facility]'s [facility] Path[facility] Medicine [place] ([facility]). It has not been cleared or approved by the FDA. [facility] is regulated under CLIA as qualified to perform high-complexity testing. This test is used for clinical purposes. It should not be regarded as investigational or for research. Performed By: #### F CLLP, FCLLRFLX ####[facility] LABCLIA [id number] [place] [address] [place] FLOW CYTOMETRY RESULTS Normal [facility] Comment on above: Order Comment: Michaeli hubert Type: BONE MARROW SPECIMENOrdering Facility: [facility] Address: [address] [place] [address] Result Comment: Spec imen type: Bone marrow aspirateViability: 99%Flow Cytometry Bone Marrow ImmunophenotypingMarker Normal Cell Type Result (Lymphocytes)CD3 T-cells Normal PatternCD4 T-cell subset Normal PatternCD5 T-cells Normal PatternCD7 T/NK-cells Normal PatternCD8 T-cell subset Normal MleqzyuCL65 Myeloid Normal DhfzwydHO86/56 NK cells Normal KmxnzbqOW36 B-cells Normal ElstbmwIH77 Blasts Normal JtwyopxKO18 Costa-leukocyte Normal Patternkappa/lambda B-cells PolytypicFlow cytometric analysis of the bone marrow aspirate reveals that 9% of total events have the CD45 and light scatter properties of lymphocytes. The lymphocytes are composed of T-cells (65%, CD4:CD8 ratio = 0.94), NK cells (3%), and polytypic B-cells (29%). Granulocytic elements are 79% of events. Blasts are not increased. Performed By: #### F CLLP, FCLLRFLX ####[facility] LABCLIA [id number] [address] [place] GROSS DESCRIPTION A. Bone Marrow Normal [facility] Comment on above: Order Comment: Speci men Type: BONE MARROW SPECIMENOrdering Facility: [facility] Address: [address] [place] [address] Result Comment: Rece ived 2 mls bone marrow in na hep Performed By: #### F CLLP, FCLLRFLX ####[facility] LABCLIA [id number] [place] [address] [place] INTERPRETATION Normal [facility] Comment on above: Order Comment: Speci men Type: BONE MARROW SPECIMENOrdering Facility: [facility] Address: [address] [place] [address] Result Comment: Ther e is no evidence of involvement by a lymphoproliferative disorder or abnormal blast population. Correlation with the clinical and bone marrow histopathologic findings is suggested.HJR/KELSEY 10/06/2023 Performed By: #### F CLLP, FCLLRFLX ####[facility] LABIA [id number] [place] [address] [place] HISTORY PHYSICALon HISTORY PHYSICAL Normal [facility] NURSING PROGon 10-03-2023 NURSING PROG Normal [facility] PT EDon 10-03-2023 PT ED Normal [facility] Amylase SerPl-cCncon 024 Amylase [Catalytic activity/Vol] 52 U/L Normal 30-104 [facility] Comment on above: Order Comment: Speci men Type: BLOOD SPECIMENOrdering Facility: [facility] Address: [address] [place] [address] Performed By: #### 1 798-8, 31554-5, 3040-3, 96536-5, 2777-1 ####[facility] [id number] [place] [address] [place] BCR/ABL1 P210 %IS PANELon BCR/ABL1 P210 %IS 0.2311 Normal [facility] Comment on above: Order Comment: Speci men Type: BLOOD SPECIMENOrdering Facility: [facility] Address: [address] [place] [address] Performed By: #### P 210P ####[facility] LIMSCLIA [id number] [place] [address] [place]#### 210ISBP ####[facility] LABCLIA [id number] [address] [place] BCR/ABL1 P210 MR 2.64 Normal [facility] Comment on above: Order Comment: Speci men Type: BLOOD SPECIMENOrdering Facility: [facility] Address: [address] [place] [address] Performed By: #### P 210P ####[facility] LIMSCLIA [id number] [address] [place]#### 210ISBP ####[facility] LABCLIA [id number] [address] [place] BCR/ABL1 P210 QUANTITATIVE P CR BLOODon 10-01-2023 BCR/ABL1 P210 INTERPRETATION Normal [facility] Comment on above: Order Comment: Speci men Type: BLOOD SPECIMENOrdering Facility: [facility] Address: [address] [place] [address] Result Comment: BCR/ ABL1 p210 Quantitative PCRLaboratory Accession Number: [id number]:DETECTEDMR: 2.64%IS: 0.2311Interpretation:p210 BCR/ABL1 transcripts were detected. Quantitative results areexpressed on the International Scale (IS) and a log molecular response(MR) is calculated. On this scale, a value of less than or equal to0.1% corresponds to a major molecular response (MMR or MR3.0).Methodology:The [employer] QuantideX BCR/ABL IS assay is an FDA-cleared in vitrodiagnostic test for the quantitation of BCR/ABL1 and ABL1 transcriptsin total RNA from whole blood of diagnosed t(9;22) positive chronicmyeloid leukemia patients expressing e13a2 and/or e14a2 fusiontranscripts. This test does not detect p190 (e1a2) or other rareBCR/ABL1 transcripts. This assay has a limit of quantification andlimit of detection of 0.002% IS or MR4.7.References:1) Janet et al, Blood 2006;108:28-37; Janes et al, Gnnfmpqw8135;29:999-1003As reviewed by Radha Lozano, PhD, [facility] Performed By: #### P 210P ####[facility] LIMSCLIA [id number] [address] [place]#### 210ISBP ####[facility] [id number] [place] [address] [place] Bilirub Conj SerPl-mCncon Bilirubin.conjugat ed [Mass/Vol] mg/dL Normal <0.2 [facility] Comment on above: Order Comment: Speci men Type: BLOOD SPECIMENOrdering Facility: [facility] Address: [address] [place] [address] Performed By: #### 1 798-8, 71000-9, 3040-3, 42086-7, 2777-1 ####[facility] [id number] [place] [address] [place] CBC W Auto Differential pane l (Bld)on 10-01-2023 Basophils (Bld) [#/Vol] 0.09 10*3/uL Normal <0.11 [facility] Comment on above: Order Comment: Speci men Type: BLOOD SPECIMENOrdering Facility: [facility] Address: [address] [place] [address] Performed By: #### 5 7021-8 ####[facility] [id number] [address] [place] Basophils/100 WBC (Bld) 0.8 % Normal [facility] Comment on above: Order Comment: Speci men Type: BLOOD SPECIMENOrdering Facility: [facility] Address: [address] [place] [address] Performed By: #### 5 7021-8 ####[facility] [id number] [place] [address] [place] Differential cell count method Nom (Bld) Auto Normal [facility] Comment on above: Order Comment: Speci men Type: BLOOD SPECIMENOrdering Facility: [facility] Address: [address] [place] [address] Performed By: #### 5 7021-8 ####[facility] [id number] [place] [address] [place] Eosinophils (Bld) [#/Vol] 0.63 10*3/uL High <0.46 [facility] Comment on above: Order Comment: Speci men Type: BLOOD SPECIMENOrdering Facility: [facility] Address: [address] [place] [address] Performed By: #### 5 7021-8 ####[facility] [id number] [place] [address] [place] Eosinophils/100 WBC (Bld) 5.9 % Normal [facility] Comment on above: Order Comment: Speci men Type: BLOOD SPECIMENOrdering Facility: [facility] Address: [address] [place] [address] Performed By: #### 5 7021-8 ####[facility] [place] [id number] [place] [address] [place] Erythrocyte distribution width (RBC) [Ratio] 14.3 % Normal 11.5-15.0 [facility] Comment on above: Order Comment: Speci men Type: BLOOD SPECIMENOrdering Facility: [facility] Address: [address] [place] [address] Performed By: #### 5 7021-8 ####[facility] [place] [id number] [place] [address] [place] Hematocrit (Bld) [Volume fraction] 47.0 % Normal 39.0-51.0 [facility] Comment on above: Order Comment: Speci men Type: BLOOD SPECIMENOrdering Facility: [facility] Address: [address] [place] [address] Performed By: #### 5 7021-8 ####[facility] [id number] [place] [address] [place] Hemoglobin (Bld) [Mass/Vol] 15.5 g/dL Normal 13.0-17.0 [facility] Comment on above: Order Comment: Speci men Type: BLOOD SPECIMENOrdering Facility: [facility] Address: [address] [place] [address] Performed By: #### 5 7021-8 ####[facility] [id number] [place] [address] [place] Immature granulocytes (Bld) [#/Vol] 0.04 10*3/uL Normal <0.10 [facility] Comment on above: Order Comment: Speci men Type: BLOOD SPECIMENOrdering Facility: [facility] Address: [address] [place] [address] Performed By: #### 5 7021-8 ####[facility] [id number] [place] [address] [place] Immature granulocytes/100 WBC (Bld) 0.4 % Normal [facility] Comment on above: Order Comment: Speci men Type: BLOOD SPECIMENOrdering Facility: [facility] Address: [address] [place] [address] Performed By: #### 5 7021-8 ####[facility] [place] [id number] [place] [address] [place] Lymphocytes (Bld) [#/Vol] 2.38 10*3/uL Normal 1.00-4.00 [facility] Comment on above: Order Comment: Speci men Type: BLOOD SPECIMENOrdering Facility: [facility] Address: [address] [place] [address] Performed By: #### 5 7021-8 ####[facility] [id number] [place] [address] [place] Lymphocytes/100 WBC (Bld) 22.3 % Normal [facility] Comment on above: Order Comment: Speci men Type: BLOOD SPECIMENOrdering Facility: [facility] Address: [address] [place] [address] Performed By: #### 5 7021-8 ####[facility] [id number] [place] [address] [place] MCH (RBC) [Entitic mass] 26.3 pg Normal 26.0-34.0 [facility] Comment on above: Order Comment: Speci men Type: BLOOD SPECIMENOrdering Facility: [facility] Address: [address] [place] [address] Performed By: #### 5 7021-8 ####[facility] [place] [id number] [place] [address] [place] MCHC (RBC) [Mass/Vol] 33.0 g/dL Normal 30.5-36.0 [facility] Comment on above: Order Comment: Speci men Type: BLOOD SPECIMENOrdering Facility: [facility] Address: [address] [place] [address] Performed By: #### 5 7021-8 ####[facility] [id number] [place] [address] [place] MCV (RBC) [Entitic vol] 79.8 fL Low 80.0-100.0 [facility] Comment on above: Order Comment: Speci men Type: BLOOD SPECIMENOrdering Facility: [facility] Address: [address] [place] [address] Performed By: #### 5 7021-8 ####[facility] [place] [id number] [place] [address] [place] Monocytes (Bld) [#/Vol] 0.70 10*3/uL Normal <0.87 [facility] Comment on above: Order Comment: Speci men Type: BLOOD SPECIMENOrdering Facility: [facility] Address: [address] [place] [address] Performed By: #### 5 7021-8 ####[facility] [id number] [place] [address] [place] Monocytes/100 WBC (Bld) 6.6 % Normal [facility] Comment on above: Order Comment: Speci men Type: BLOOD SPECIMENOrdering Facility: [facility] Address: [address] [place] [address] Performed By: #### 5 7021-8 ####[facility] [place] [id number] [place] [address] [place] Neutrophils (Bld) [#/Vol] 6.81 10*3/uL Normal 1.45-7.50 [facility] Comment on above: Order Comment: Speci men Type: BLOOD SPECIMENOrdering Facility: [facility] Address: [address] [place] [address] Performed By: #### 5 7021-8 ####[facility] [id number] [place] [address] [place] Neutrophils/100 WBC (Bld) 64.0 % Normal [facility] Comment on above: Order Comment: Speci men Type: BLOOD SPECIMENOrdering Facility: [facility] Address: [address] [place] [address] Performed By: #### 5 7021-8 ####[facility] [place] [id number] [place] [address] [place] Nucleated RBC (Bld) [#/Vol] 10*3/uL Normal <0.01 [facility] Comment on above: Order Comment: Speci men Type: BLOOD SPECIMENOrdering Facility: [facility] Address: [address] [place] [address] Performed By: #### 5 7021-8 ####[facility] [id number] [place] [address] [place] Nucleated RBC/100 WBC (Bld) [Ratio] 0.0 /100 WBC Normal [facility] Comment on above: Order Comment: Speci men Type: BLOOD SPECIMENOrdering Facility: [facility] Address: [address] [place] [address] Performed By: #### 5 7021-8 ####[facility] [place] [id number] [place] [address] [place] Platelet mean volume (Bld) [Entitic vol] 9.9 fL Normal 9.0-12.7 [facility] Comment on above: Order Comment: Speci men Type: BLOOD SPECIMENOrdering Facility: [facility] Address: [address] [place] [address] Performed By: #### 5 7021-8 ####[facility] [id number] [place] [address] [place] Platelets (Bld) [#/Vol] 271 10*3/uL Normal 150-400 [facility] Comment on above: Order Comment: Speci men Type: BLOOD SPECIMENOrdering Facility: [facility] Address: [address] [place] [address] Performed By: #### 5 7021-8 ####[facility] [id number] [place] [address] [place] RBC (Bld) [#/Vol] 5.89 10*6/uL Normal 4.20-6.00 [facility] Comment on above: Order Comment: Speci men Type: BLOOD SPECIMENOrdering Facility: [facility] Address: [address] [place] [address] Performed By: #### 5 7021-8 ####[facility] [place] [id number] [place] [address] [place] WBC (Bld) [#/Vol] 10.65 10*3/uL Normal 3.70-11.00 [facility] Comment on above: Order Comment: Speci men Type: BLOOD SPECIMENOrdering Facility: [facility] Address: [address] [place] [address] Performed By: #### 5 7021-8 ####[facility] [id number] [address] [place] CK SerPl-cCncon 10-01-2023 CK [Catalytic activity/Vol] 64 U/L Normal 51-298 [facility] Comment on above: Order Comment: Speci men Type: BLOOD SPECIMENOrdering Facility: [facility] Address: [address] [place] [address] Performed By: #### 2 157-6, HSTNT ####[place] [id number] [place] [address] [place] CNNURSEon 10-01-2023 CNNURSE Normal [facility] Cholest SerPl-mCncon 024 Cholesterol [Mass/Vol] 183 mg/dL Normal <200 [facility] Comment on above: Order Comment: Speci men Type: BLOOD SPECIMENOrdering Facility: [facility] Address: [address] [place] [address] Result Comment: <200 mg/dL, Desirable 200-239 mg/dL, Borderline high>239 mg/dL, HighReference:1. National Cholesterol Education Program ATP III Guideline At-A-Glance Quick Desk Reference: National Heart, Lung, and Blood [place]. National Institutes of Health. 2001: NIH Publication No. 01-3305. Performed By: #### 2 093-3 ####[facility] [id number] [place] [address] [place] Comprehensive metabolic 2000 panelon 10-01-2023 Albumin [Mass/Vol] 4.2 g/dL Normal 3.9-4.9 [facility] Comment on above: Order Comment: Speci men Type: BLOOD SPECIMENOrdering Facility: [facility] Address: [address] [place] [address] Performed By: #### 2 4323-8, 2571-8, 4-1 ####[facility] [id number] [place] [address] [place] ALP [Catalytic activity/Vol] 188 U/L High 38-113 [facility] Comment on above: Order Comment: Speci men Type: BLOOD SPECIMENOrdering Facility: [facility] Address: [address] [place] [address] Performed By: #### 2 4323-8, 2570-8, 3083-1 ####[facility] [id number] [place] [address] [place] ALT [Catalytic activity/Vol] 34 U/L Normal 10-54 [facility] Comment on above: Order Comment: Speci men Type: BLOOD SPECIMENOrdering Facility: [facility] Address: [address] [place] [address] Performed By: #### 2 4323-8, 2570-8, 3083- ####[facility] [id number] [place] [address] [place] Anion gap [Moles/Vol] 9 mmol/L Normal 9-18 [facility] Comment on above: Order Comment: Speci men Type: BLOOD SPECIMENOrdering Facility: [facility] Address: [address] [place] [address] Performed By: #### 2 4323-8, 257-8, 3083-1 ####[facility] [id number] [place] [address] [place] AST [Catalytic activity/Vol] 31 U/L Normal 14-40 [facility] Comment on above: Order Comment: Speci men Type: BLOOD SPECIMENOrdering Facility: [facility] Address: [address] [place], [place] [address] Performed By: #### 2 4323-8, 2571-8, 3084-1 ####[facility] [id number] [place] [address] [place] Bilirubin [Mass/Vol] 0.4 mg/dL Normal 0.2-1.3 [facility] Comment on above: Order Comment: Speci men Type: BLOOD SPECIMENOrdering Facility: [facility] Address: [address] [place], [place] [address] Performed By: #### 2 4323-8, 2571-8, 3084-1 ####[facility] [id number] [place] [address] [place] Calcium [Mass/Vol] 9.8 mg/dL Normal 8.5-10.2 [facility] Comment on above: Order Comment: Speci men Type: BLOOD SPECIMENOrdering Facility: [facility] Address: [address] [place] [address] Performed By: #### 2 4323-8, 257-8, 3084-1 ####[facility] [id number] [place] [address] [place] Chloride [Moles/Vol] 101 mmol/L Normal 97-105 [facility] Comment on above: Order Comment: Speci men Type: BLOOD SPECIMENOrdering Facility: [facility] Address: [address] [place], [place] [address] Performed By: #### 2 4323-8, 257-8, 3084-1 ####[facility] [id number] [place] [address] [place] CO2 [Moles/Vol] 24 mmol/L Normal 22-30 [facility] Comment on above: Order Comment: Speci men Type: BLOOD SPECIMENOrdering Facility: [facility] Address: [address] [place], [place] [address] Performed By: #### 2 4323-8, 2571-8, 3084-1 ####[facility] [id number] [place] [address] [place] Creatinine [Mass/Vol] 0.68 mg/dL Low 0.73-1.22 [facility] Comment on above: Order Comment: Rosa men Type: BLOOD SPECIMENOrdering Facility: [facility] Address: [address] [place] [address] Performed By: #### 2 4323-8, 2571-8, 3084-1 ####[facility] [id number] [place] [address] [place] Creatinine and Glomerular filtration rate.predicted panel (S/P/Bld) 110 mL/min/1.73m??? Normal >=60 [facility] Comment on above: Order Comment: Rosa gaspar Type: BLOOD SPECIMENOrdering Facility: [facility] Address: [address] [place] [address] Result Comment: Najma mated Glomerular Filtration Rate (eGFR) is calculated using the 2020 CKD-EPI creatinine equation. This equation utilizes serum creatinine, sex, and age as parameters. The creatinine assay has traceable calibration to isotope dilution-mass spectrometry. Refer to KDIGO guidelines for clinical interpretation. In patients with unstable renal function, e.g. those with acute kidney injury, the eGFR may not accurately reflect actual GFR. Performed By: #### 2 4323-8, 257-8, 3083-1 ####[facility] [id number] [place] [address] [place] Glucose [Mass/Vol] 131 mg/dL High 74-99 [facility] Comment on above: Order Comment: Rosa gaspar Type: BLOOD SPECIMENOrdering Facility: [facility] Address: [address] [place] [address] Result Comment: The [place] [employer] (ADA) provides guidance for cutoff values for fasting glucose and random glucose. The ADA defines fasting as no caloric intake for at least 8 hours. Fasting plasma glucose results between 100 to 125 mg/dL indicate increased risk for diabetes (prediabetes).Fasting plasma glucose results greater than or equal to 126 mg/dL meet the criteria for diagnosis of diabetes. In the absence of unequivocal hyperglycemia, results should be confirmed by repeat testing. In a patient with classic symptoms of hyperglycemia or hyperglycemic crisis, random plasma glucose results greater than or equal to 200 mg/dL meet the criteria for diagnosis of diabetes.Reference: Standards of Medical Care in Diabetes 2016, [place] [employer]. Diabetes Care. 2016.39(Suppl 1). Performed By: #### 2 4323-8, 8, 3083-06 ####[facility] [id number] [place] [address] [place] Potassium [Moles/Vol] 4.7 mmol/L Normal 3.7-5.1 [facility] Comment on above: Order Comment: Speci men Type: BLOOD SPECIMENOrdering Facility: [facility] Address: [address] [place] [address] Performed By: #### 2 4323-8, 2571-01, 3083-06 ####[facility] [id number] [place] [address] [place] Protein [Mass/Vol] 8.6 g/dL High 6.3-8.0 [facility] Comment on above: Order Comment: Speci men Type: BLOOD SPECIMENOrdering Facility: [facility] Address: [address] [place] [address] Performed By: #### 2 4323-8, 2571-01, 3083-06 ####[facility] [id number] [place] [address] [place] Sodium [Moles/Vol] 134 mmol/L Low 136-144 [facility] Comment on above: Order Comment: Speci men Type: BLOOD SPECIMENOrdering Facility: [facility] Address: [address] [place] [address] Performed By: #### 2 432-8, 2571-8, 3084-1 ####[facility] [id number] [place] [address] [place] Urea nitrogen [Mass/Vol] 11 mg/dL Normal 03-02 [facility] Comment on above: Order Comment: Rosa gaspar Type: BLOOD SPECIMENOrdering Facility: [facility] Address: [address] [place] [address] Performed By: #### 2 4323-8, 2571-8, 3084-1 ####[facility] [id number] [place] [address] [place] HIGH SENSITIVITY TROPONIN To n 10-01-2023 Troponin T.cardiac High sensitivity method [Mass/Vol] 32 ng/L High <12 [facility] Comment on above: Order Comment: Rosa [facility] Type: BLOOD SPECIMENOrdering Facility: [facility] Address: [address] [place] [address] Result Comment: When assessing risk for acute coronary syndromes: In patients undergoing blood draw greater than or equal to 2 hours from symptom onset, with history of very low to moderate risk and non-ischemic ECG, an initial hs-Troponin T less than 12 ng/L AND a 1 hour delta hs-Troponin T less than 3 ng/L should be considered very low risk for 30 day MACE. Performed By: #### 2 157-6, HSTNT ####[facility] [id number] [place] [address] [place] HbA1c (Bld)on 10-01-2023 Average glucose Estimated from glycated hemoglobin (Bld) [Mass/Vol] 148 mg/dL Normal [facility] Comment on above: Order Comment: Rosa gaspar Type: BLOOD SPECIMENOrdering Facility: [facility] Address: [address] [place] [address] Result Comment: eAG: (Estimated average glucose) is a calculated value from HgbA1c and is registered representative of the average blood glucose level in the last 2-3 month period. Performed By: #### 5 5454-3 ####[facility] [id number] [place] [address] [place] HbA1c (Bld) [Mass fraction] 6.8 % High 4.3-5.6 [facility] Comment on above: Order Comment: Rosa gaspar Type: BLOOD SPECIMENOrdering Facility: [facility] Address: [address] [place] [address] Result Comment: Amer ican Diabetes Association guidelines indicate that patients with HgbA1c in the range 5.7-6.4% are at increased risk for development of diabetes, and intervention by lifestyle modification may be beneficial. HgbA1c greater or equal to 6.5% is considered diagnostic of diabetes. Performed By: #### 5 5454-3 ####[facility] [id number] [place] [address] [place] Lipase SerPl-cCncon 10-01-19 Lipase [Catalytic activity/Vol] 35 U/L Normal 16-61 [facility] Comment on above: Order Comment: Michaeli men Type: BLOOD SPECIMENOrdering Facility: [facility] Address: [address] [place] [address] Performed By: #### 1 798-8, 96408-7, 3040-3, 80150-3, 2776-1 ####[facility] [place] [id number] [place] [address] [place] Magnesium SerPl-mCncon 09-30 Magnesium [Mass/Vol] 2.2 mg/dL Normal 1.7-2.3 [facility] Comment on above: Order Comment: Michaeli [facility] Type: BLOOD SPECIMENOrdering Facility: [facility] Address: [address] [place] [address] Performed By: #### 1 798-8, 09082-9, 3040-3, 05761-2, 2776- ####[facility] [id number] [place] [address] [place] NURSING PROGon 10-01-2023 NURSING PROG Normal [facility] PT panel Coag (PPP)on 2023 INR Coag (PPP) [Relative time] 1.0 {INR} Normal 0.9-1.3 [facility] Comment on above: Order Comment: Rosa gaspar Type: BLOOD SPECIMENOrdering Facility: [facility] Address: [address] [place] [address] Result Comment: Nyla min K Antagonist (VKA) Therapeutic Range: INR 2 to 3 (Target INR of 2.5)Note: For patients treated with VKA drugs, such as warfarin, the [place] [employer] 2012 Guideline recommends a therapeutic INR range of 2 to 3 (target INR of 2.5). This recommendation includes high-risk patients with antiphospholipid syndrome with previous arterial or venous thromboembolism, current-generation mechanical or bioprosthetic aortic heart valve replacement.Note: Patients with mechanical aortic valve replacement and additional risk factors for thromboembolic events (atrial fibrillation, previous thromboembolism, LV dysfunction, hypercoagulable conditions) or an older generation mechanical AVR (i.e., ball in-Cage) or any mechanical MVR should have a INR therapeutic range of 2.5 to 3.5 (target INR of 3).Coby GH, et al. Chest 2012, 141:7S-47SNishimura RA, et al. JAC 2017, 70: 252-289 Performed By: #### 3 4528-0, 93391-7 ####[facility] [id number] [place] [address] [place] PT Coag (PPP) [Time] 11.0 s Normal 9.7-13.0 [facility] Comment on above: Order Comment: Rosa gaspar Type: BLOOD SPECIMENOrdering Facility: [facility] Address: [address] [place] [address] Performed By: #### 3 4528-0, 15783-4 ####[facility] [id number] [address] [address] [place] Phosphate SerPl-mCncon 09-30 Phosphate [Mass/Vol] 3.7 mg/dL Normal 2.7-4.8 [facility] Comment on above: Order Comment: Speci men Type: BLOOD SPECIMENOrdering Facility: [facility] Address: [address] [place] [address] Performed By: #### 1 798-8, 50157-4, 3040-3, 36829-1, 2777-1 ####[facility] [place] [id number] [place] [address] [place] Trigl SerPl-mCncon 4 Triglyceride [Mass/Vol] 139 mg/dL Normal <150 [facility] Comment on above: Order Comment: Speci men Type: BLOOD SPECIMENOrdering Facility: [facility] Address: [address] [place] [address] Result Comment: <150 mg/dL, Normal 150-199 mg/dL, Borderline high 200-499 mg/dL, High>499 mg/dL, Very highReference:1. National Cholesterol Education Program ATP III Guideline At-A-Glance Quick Desk Reference: National Heart, Lung, and Blood [place]. National Institutes of Health. 2001: NIH Publication No. 01-3305. Performed By: #### 2 4323-8, 2571-8, 3084-1 ####[facility] [place] [id number] [address] [place] Triglyceride [Mass/Vol]on FASTING TIME 12 hrs Normal [facility] Comment on above: Order Comment: Speci men Type: BLOOD SPECIMENOrdering Facility: [facility] Address: [address] [place] [address] Performed By: #### 2 4323-8, 2571-8, 3084-1 ####[facility] [id number] [place] [address] [place] URINALYSIS, DIPSTICK ONLYon 10-01-2023 Bilirubin Ql (U) Negative Normal Negative [facility] Comment on above: Order Comment: Speci men Type: URINE SPECIMENOrdering Facility: [facility] Address: [address] [place] [address] Performed By: #### U A ####[facility] [id number] [place] [address] [place] Clarity (Unsp spec) Clear Normal Clear [facility] Comment on above: Order Comment: Speci men Type: URINE SPECIMENOrdering Facility: [facility] Address: [address] [place] [address] Performed By: #### U A ####[facility] [id number] [place] [address] [place] Color (U) Yellow Normal Yellow [facility] Comment on above: Order Comment: Speci men Type: URINE SPECIMENOrdering Facility: [facility] Address: [address] [place] [address] Performed By: #### U A ####[facility] [id number] [place] [address] [place] Glucose Test strip (U) [Mass/Vol] 3+ Abnormal Negative [facility] Comment on above: Order Comment: Speci men Type: URINE SPECIMENOrdering Facility: [facility] Address: [address] [place] [address] Performed By: #### U A ####[facility] [id number] [place] [address] [place] Hemoglobin Ql (U) Negative Normal Negative [facility] Comment on above: Order Comment: Speci men Type: URINE SPECIMENOrdering Facility: [facility] Address: [address] [place] [address] Performed By: #### U A ####[facility] [id number] [place] [address] [place] Ketones Ql (U) Negative Normal Negative [facility] Comment on above: Order Comment: Speci men Type: URINE SPECIMENOrdering Facility: [facility] Address: [address] [place] [address] Performed By: #### U A ####[facility] [id number] [place] [address] [place] Leukocyte esterase Test strip Ql (U) Negative Normal Negative [facility] Comment on above: Order Comment: Speci men Type: URINE SPECIMENOrdering Facility: [facility] Address: [address] [place] [address] Performed By: #### U A ####[facility] [id number] [place] [address] [place] Nitrite Ql (U) Negative Normal Negative [facility] Comment on above: Order Comment: Speci men Type: URINE SPECIMENOrdering Facility: [facility] Address: [address] [place] [address] Performed By: #### U A ####[facility] [id number] [place] [address] [place] pH (U) 5.5 [pH] Normal <8.5 [facility] Comment on above: Order Comment: Speci men Type: URINE SPECIMENOrdering Facility: [facility] Address: [address] [place] [address] Performed By: #### U A ####[facility] [id number] [place] [address] [place] Protein (U) [Mass/Vol] Negative Normal Negative [facility] Comment on above: Order Comment: Speci men Type: URINE SPECIMENOrdering Facility: [facility] Address: [address] [place] [address] Performed By: #### U A ####[facility] [id number] [place] [address] [place] Specific gravity (U) [Rel density] 1.026 Normal 1.005-1.030 [facility] Comment on above: Order Comment: Speci men Type: URINE SPECIMENOrdering Facility: [facility] Address: [address] [place] [address] Performed By: #### U A ####[facility] [id number] [place] [address] [place] Urobilinogen Ql (U) 0.2 EU/dL Normal 0.2-1.0 EU/dL [facility] Comment on above: Order Comment: Speci men Type: URINE SPECIMENOrdering Facility: [facility] Address: [address] [place] [address] Performed By: #### U A ####[facility] [id number] [place] [address] [place] Urate SerPl-mCncon Urate [Mass/Vol] 3.1 mg/dL Low 4.0-8.1 [facility] Comment on above: Order Comment: Speci men Type: BLOOD SPECIMENOrdering Facility: [facility] Address: [address] [place] [address] Performed By: #### 2 4323-8, 2571-8, 3084-1 ####[facility] [id number] [place] [address] [place] aPTT PPPon 10-01-2023 aPTT Coag (PPP) [Time] 28.1 s Normal 23.0-32.4 [facility] Comment on above: Order Comment: Speci men Type: BLOOD SPECIMENOrdering Facility: [facility] Address: [address] [place] [address] Performed By: #### 3 4528-0, 87785-7 ####[facility] [id number] [place] [address] [place] CNPNon 09-05-2023 CNPN Normal [facility] CNOVon 08-29-2023 CNOV Normal [facility] MR CARDIAC FOR MORPH W WO CO Non 08-08-2023 MR CARDIAC FOR MORPH W WO CON MR CARDIAC FOR MORPH W WO CON STUDY: Cardiac MRI without and with contrast 03/08/2014 CLINICAL HISTORY: Abnormal ECG left ventricular hypertrophy COMPARISON: None TECHNIQUE: Multiplanar multisequence gated cardiac MRI was performed with steady state free precession imaging and pre- and postcontrast delayed myocardial enhancement views obtained prior to and following the uneventful ministration of 20 cc ProHance intravenous gadolinium contrast. FINDINGS: Left ventricular quantitative parameters as follows: Ejection Fraction 67% (normal: male = 56-78%; female = 56-78%). End Diastolic Diameter is 46 mm (normal: 36-56-mm). Stroke Volume 112 mL. End Diastolic Volume 167 mL (normal: male = 77-195 ml; female = 52-141 ml). End Systolic Volume 55 mL (normal: male = 19 - 72 ml, female = 13-51 ml). Anteroseptal wall thickness: 1.1 cm. Posterolateral wall thickness: 1.1 cm. Mid septal thickness: 1.3 cm Morphology: [Ventricle normal size. Right ventricle normal size both atria are normal size. Visibly there is some mild aortic stenosis Valves: Quantitative flow across the left ventricular outflow tract was measured peak systolic velocity is 121 cm/s Function: Normal left ventricular ejection fraction. No focal wall motion Delayed enhancement: Nonlinear/globular enhancement between the mid ventricle and the base in the inferior wall. There also appears to be some faint linear enhancement in the basal septum. Other: No aortic aneurysm Extracardiac Findings: None. Impression: * Delayed enhancement: Nonlinear/globular enhancement between the mid ventricle and the base in the inferior wall and in the lateral wall mid ventricle.. Nonspecific cardiomyopathy could be related to focal small vessel ischemic changes. * No significant hypertrophy * Quantitative flow across the left ventricular outflow tract was measured peak systolic velocity is 121 cm/s Cardiac structures we interpreted in conjunction with of the Department of Cardiology. Extracardiac structures were solely interpreted by Dr. Mora of the Department of Radiology. Finalized by Alex Mora MD on 08/08/2023 4:15 PM [facility] MR CARDIAC VELOCITY OTILIO VICTORINO [facility] 08-08-2023 MR CARDIAC VELOCITY OTILIO MAPPING MR CARDIAC VELOCITY OTILIO MAPPING STUDY: Cardiac MRI without and with contrast 03/08/2014 CLINICAL HISTORY: Abnormal ECG left ventricular hypertrophy COMPARISON: None TECHNIQUE: Multiplanar multisequence gated cardiac MRI was performed with steady state free precession imaging and pre- and postcontrast delayed myocardial enhancement views obtained prior to and following the uneventful ministration of 20 cc ProHance intravenous gadolinium contrast. FINDINGS: Left ventricular quantitative parameters as follows: Ejection Fraction 67% (normal: male = 56-78%; female = 56-78%). End Diastolic Diameter is 46 mm (normal: 36-56-mm). Stroke Volume 112 mL. End Diastolic Volume 167 mL (normal: male = 77-195 ml; female = 52-141 ml). End Systolic Volume 55 mL (normal: male = 19 - 72 ml, female = 13-51 ml). Anteroseptal wall thickness: 1.1 cm. Posterolateral wall thickness: 1.1 cm. Mid septal thickness: 1.3 cm Morphology: [Ventricle normal size. Right ventricle normal size both atria are normal size. Visibly there is some mild aortic stenosis Valves: Quantitative flow across the left ventricular outflow tract was measured peak systolic velocity is 121 cm/s Function: Normal left ventricular ejection fraction. No focal wall motion Delayed enhancement: Nonlinear/globular enhancement between the mid ventricle and the base in the inferior wall. There also appears to be some faint linear enhancement in the basal septum. Other: No aortic aneurysm Extracardiac Findings: None. Impression: * Delayed enhancement: Nonlinear/globular enhancement between the mid ventricle and the base in the inferior wall and in the lateral wall mid ventricle.. Nonspecific cardiomyopathy could be related to focal small vessel ischemic changes. * No significant hypertrophy * Quantitative flow across the left ventricular outflow tract was measured peak systolic velocity is 121 cm/s Cardiac structures we interpreted in conjunction with of the Department of Cardiology. Extracardiac structures were solely interpreted by Dr. Mora of the Department of Radiology. Finalized by Alex Mora MD on 08/08/2023 4:15 PM Normal [facility] XR EYE FOREIGN BODY LOCALIZA [facility] 07-31-2023 XR EYE FOREIGN BODY LOCALIZATION XR EYE FOREIGN BODY LOCALIZATION Orbits Single Contreras' view History: Metal near eye. Concern for occult foreign bodies near the eye Comparison: None Findings: No periorbital metal or radiopaque metallic foreign bodies are seen. Orbital rims are intact. Impression: * No metallic foreign bodies are seen near the eye Finalized by Connie Jaime MD on 07/31/2023 11:02 AM Normal [facility] Amylase SerPl-cCncon 024 Amylase [Catalytic activity/Vol] 45 U/L Normal 30-104 [facility] Comment on above: Order Comment: Speci men Type: BLOOD SPECIMENOrdering Facility: [facility] Address: [address] [place] [address] Performed By: #### 1 798-8, 01657-4, 3040-3, 92713-5, 2777-1 ####[facility] [id number] [place] [address] [place] BCR/ABL1 P210 %IS PANELon BCR/ABL1 P210 %IS 0.3728 Normal [facility] Comment on above: Order Comment: Speci men Type: BLOOD SPECIMENOrdering Facility: [facility] Address: [address] [place] [address] Performed By: #### P 210P ####[facility] [id number] [place] [address] [place]#### 210ISBP ####[facility] [id number] [place] [address] [place] BCR/ABL1 P210 MR 2.43 Normal [facility] Comment on above: Order Comment: Speci men Type: BLOOD SPECIMENOrdering Facility: [facility] Address: [address] [place] [address] Performed By: #### P 210P ####[facility] [id number] [place] [address] [place]#### 210ISBP ####[facility] [id number] [place] [address] [place] BCR/ABL1 P210 QUANTITATIVE P CR BLOODon 07-09-2023 BCR/ABL1 P210 INTERPRETATION Normal [facility] Comment on above: Order Comment: Speci men Type: BLOOD SPECIMENOrdering Facility: [facility] Address: [address] [place] [address] Result Comment: BCR/ ABL1 p210 Quantitative PCRLaboratory Accession Number: [id number]:DETECTEDMR: 2.43%IS: 0.3728Interpretation:p210 BCR/ABL1 transcripts were detected. Quantitative results areexpressed on the International Scale (IS) and a log molecular response(MR) is calculated. On this scale, a value of less than or equal to0.1% corresponds to a major molecular response (MMR or MR3.0).Methodology:The [employer] QuantideX BCR/ABL IS assay is an FDA-cleared in vitrodiagnostic test for the quantitation of BCR/ABL1 and ABL1 transcriptsin total RNA from whole blood of diagnosed t(9;22) positive chronicmyeloid leukemia patients expressing e13a2 and/or e14a2 fusiontranscripts. This test does not detect p190 (e1a2) or other rareBCR/ABL1 transcripts. This assay has a limit of quantification andlimit of detection of 0.002% IS or MR4.7.References:1) Janet et al, Blood 2006;108:28-37; Cross et al, Aggyrpsi1655;29:999-1003As reviewed by Nahed Tavera MD, PhD Performed By: #### P 210P ####[facility] [id number] [place] [address] [place]#### 210ISBP ####[facility] [facility] [id number] [place] [address] [place] Bilirub Conj SerPl-mCncon Bilirubin.conjugat ed [Mass/Vol] mg/dL Normal <0.2 [facility] Comment on above: Order Comment: Speci men Type: BLOOD SPECIMENOrdering Facility: [facility] Address: [address] [place] [address] Performed By: #### 1 798-8, 30661-4, 3040-3, 77461-2, 2777-1 ####[facility] [id number] [place] [address] [place] CBC W Auto Differential pane l (Bld)on 07-09-2023 Basophils (Bld) [#/Vol] 0.08 10*3/uL Normal <0.11 [facility] Comment on above: Order Comment: Speci men Type: BLOOD SPECIMENOrdering Facility: [facility] Address: [address] [place] [address] Performed By: #### 5 7021-8 ####[facility] [place] [id number] [place] [address] [place] Basophils/100 WBC (Bld) 0.7 % Normal [facility] Comment on above: Order Comment: Speci men Type: BLOOD SPECIMENOrdering Facility: [facility] Address: [address] [place] [address] Performed By: #### 5 7021-8 ####[facility] [id number] [place] [address] [place] Differential cell count method Nom (Bld) Auto Normal [facility] Comment on above: Order Comment: Speci men Type: BLOOD SPECIMENOrdering Facility: [facility] Address: [address] [place] [address] Performed By: #### 5 7021-8 ####[facility] [place] [id number] [place] [address] [place] Eosinophils (Bld) [#/Vol] 0.69 10*3/uL High <0.46 [facility] Comment on above: Order Comment: Speci men Type: BLOOD SPECIMENOrdering Facility: [facility] Address: [address] [place] [address] Performed By: #### 5 7021-8 ####[facility] [id number] [place] [address] [place] Eosinophils/100 WBC (Bld) 5.9 % Normal [facility] Comment on above: Order Comment: Speci men Type: BLOOD SPECIMENOrdering Facility: [facility] Address: [address] [place] [address] Performed By: #### 5 7021-8 ####[facility] [place] [id number] [place] [address] [place] Erythrocyte distribution width (RBC) [Ratio] 14.3 % Normal 11.5-15.0 [facility] Comment on above: Order Comment: Speci men Type: BLOOD SPECIMENOrdering Facility: [facility] Address: [address] [place] [address] Performed By: #### 5 7021-8 ####[facility] [id number] [place] [address] [place] Hematocrit (Bld) [Volume fraction] 48.2 % Normal 39.0-51.0 [facility] Comment on above: Order Comment: Speci men Type: BLOOD SPECIMENOrdering Facility: [facility] Address: [address] [place] [address] Performed By: #### 5 7021-8 ####[facility] [id number] [place] [address] [place] Hemoglobin (Bld) [Mass/Vol] 16.0 g/dL Normal 13.0-17.0 [facility] Comment on above: Order Comment: Speci men Type: BLOOD SPECIMENOrdering Facility: [facility] Address: [address] [place] [address] Performed By: #### 5 7021-8 ####[facility] [place] [id number] [place] [address] [place] Immature granulocytes (Bld) [#/Vol] 0.05 10*3/uL Normal <0.10 [facility] Comment on above: Order Comment: Speci men Type: BLOOD SPECIMENOrdering Facility: [facility] Address: [address] [place] [address] Performed By: #### 5 7021-8 ####[facility] [id number] [place] [address] [place] Immature granulocytes/100 WBC (Bld) 0.4 % Normal [facility] Comment on above: Order Comment: Speci men Type: BLOOD SPECIMENOrdering Facility: [facility] Address: [address] [place] [address] Performed By: #### 5 7021-8 ####[facility] [id number] [place] [address] [place] Lymphocytes (Bld) [#/Vol] 2.41 10*3/uL Normal 1.00-4.00 [facility] Comment on above: Order Comment: Speci men Type: BLOOD SPECIMENOrdering Facility: [facility] Address: [address] [place] [address] Performed By: #### 5 7021-8 ####[facility] [id number] [place] [address] [place] Lymphocytes/100 WBC (Bld) 20.5 % Normal [facility] Comment on above: Order Comment: Speci men Type: BLOOD SPECIMENOrdering Facility: [facility] Address: [address] [place] [address] Performed By: #### 5 7021-8 ####[facility] [id number] [place] [address] [place] MCH (RBC) [Entitic mass] 25.8 pg Low 26.0-34.0 [facility] Comment on above: Order Comment: Speci men Type: BLOOD SPECIMENOrdering Facility: [facility] Address: [address] [place] [address] Performed By: #### 5 7021-8 ####[facility] [id number] [place] [address] [place] MCHC (RBC) [Mass/Vol] 33.2 g/dL Normal 30.5-36.0 [facility] Comment on above: Order Comment: Speci men Type: BLOOD SPECIMENOrdering Facility: [facility] Address: [address] [place] [address] Performed By: #### 5 7021-8 ####[facility] [id number] [place] [address] [place] MCV (RBC) [Entitic vol] 77.7 fL Low 80.0-100.0 [facility] Comment on above: Order Comment: Speci men Type: BLOOD SPECIMENOrdering Facility: [facility] Address: [address] [place] [address] Performed By: #### 5 7021-8 ####[facility] [place] [id number] [place] [address] [place] Monocytes (Bld) [#/Vol] 0.88 10*3/uL High <0.87 [facility] Comment on above: Order Comment: Speci men Type: BLOOD SPECIMENOrdering Facility: [facility] Address: [address] [place] [address] Performed By: #### 5 7021-8 ####[facility] [id number] [place] [address] [place] Monocytes/100 WBC (Bld) 7.5 % Normal [facility] Comment on above: Order Comment: Speci men Type: BLOOD SPECIMENOrdering Facility: [facility] Address: [address] [place] [address] Performed By: #### 5 7021-8 ####[facility] [place] [id number] [place] [address] [place] Neutrophils (Bld) [#/Vol] 7.66 10*3/uL High 1.45-7.50 [facility] Comment on above: Order Comment: Speci men Type: BLOOD SPECIMENOrdering Facility: [facility] Address: [address] [place] [address] Performed By: #### 5 7021-8 ####[facility] [id number] [place] [address] [place] Neutrophils/100 WBC (Bld) 65.0 % Normal [facility] Comment on above: Order Comment: Speci men Type: BLOOD SPECIMENOrdering Facility: [facility] Address: [address] [place] [address] Performed By: #### 5 7021-8 ####[facility] [id number] [place] [address] [place] Nucleated RBC (Bld) [#/Vol] 10*3/uL Normal <0.01 [facility] Comment on above: Order Comment: Speci men Type: BLOOD SPECIMENOrdering Facility: [facility] Address: [address] [place] [address] Performed By: #### 5 7021-8 ####[facility] [place] [id number] [place] [address] [place] Nucleated RBC/100 WBC (Bld) [Ratio] 0.0 /100 WBC Normal [facility] Comment on above: Order Comment: Speci men Type: BLOOD SPECIMENOrdering Facility: [facility] Address: [address] [place] [address] Performed By: #### 5 7021-8 ####[facility] [id number] [place] [address] [place] Platelet mean volume (Bld) [Entitic vol] 10.1 fL Normal 9.0-12.7 [facility] Comment on above: Order Comment: Speci men Type: BLOOD SPECIMENOrdering Facility: [facility] Address: [address] [place] [address] Performed By: #### 5 7021-8 ####[facility] [id number] [place] [address] [place] Platelets (Bld) [#/Vol] 272 10*3/uL Normal 150-400 [facility] Comment on above: Order Comment: Speci men Type: BLOOD SPECIMENOrdering Facility: [facility] Address: [address] [place] [address] Performed By: #### 5 7021-8 ####[facility] [id number] [place] [address] [place] RBC (Bld) [#/Vol] 6.20 10*6/uL High 4.20-6.00 [facility] Comment on above: Order Comment: Speci men Type: BLOOD SPECIMENOrdering Facility: [facility] Address: [address] [place] [address] Performed By: #### 5 7021-8 ####[facility] [id number] [place] [address] [place] WBC (Bld) [#/Vol] 11.77 10*3/uL High 3.70-11.00 [facility] Comment on above: Order Comment: Speci men Type: BLOOD SPECIMENOrdering Facility: [facility] Address: [address] [place] [address] Performed By: #### 5 7021-8 ####[facility] [id number] [place] [address] [place] CK SerPl-cCncon 07-09-2023 CK [Catalytic activity/Vol] 61 U/L Normal 51-298 [facility] Comment on above: Order Comment: Speci men Type: BLOOD SPECIMENOrdering Facility: [facility] Address: [address] [place] [address] Performed By: #### 2 157-6, HSTNT, 83236-1 ####[facility] [id number] [place] [address] [place] CNNURSEon 07-09-2023 CNNURSE Normal [facility] CNOVSPon 07-09-2023 CNOVSP Normal [facility] Cholest SerPl-mCncon 024 Cholesterol [Mass/Vol] 247 mg/dL High <200 [facility] Comment on above: Order Comment: Speci hubert Type: BLOOD SPECIMENOrdering Facility: [facility] Address: [address] [place] [address] Result Comment: <200 mg/dL, Desirable 200-239 mg/dL, Borderline high>239 mg/dL, HighReference:1. National Cholesterol Education Program ATP III Guideline At-A-Glance Quick Desk Reference: National Heart, Lung, and Blood [place]. National Institutes of Health. 2001: NIH Publication No. 01-3305. Performed By: #### 2 093-3 ####[facility] [id number] [address] [place] Cholesterol in LDL Direct as say [Mass/Vol]on 07-09-2023 Cholesterol in LDL [Mass/Vol] 182 mg/dL High <100 [facility] Comment on above: Order Comment: Speci men Type: BLOOD SPECIMENOrdering Facility: [facility] Address: [address] [place] [address] Result Comment: <100 mg/dL, Optimal 100-129 mg/dL, Near optimal/above optimal 130-159 mg/dL, Borderline high 160-189 mg/dL, High>189 mg/dL, Very highSecondary prevention optimal LDL Cholesterol levels are recommended to be < 70 mg/dL Performed By: #### 2 157-6, HSTNT, 98344-3 ####[facility] [id number] [place] [address] [place] Comprehensive metabolic 2000 panelon 07-09-2023 Albumin [Mass/Vol] 4.0 g/dL Normal 3.9-4.9 [facility] Comment on above: Order Comment: Michaeli men Type: BLOOD SPECIMENOrdering Facility: [facility] Address: [address] [place] [address] Performed By: #### 2 4323-8, 2571-8, 3083-1 ####[facility] [id number] [place] [address] [place] ALP [Catalytic activity/Vol] 178 U/L High 38-113 [facility] Comment on above: Order Comment: Speci men Type: BLOOD SPECIMENOrdering Facility: [facility] Address: [address] [place] [address] Performed By: #### 2 4323-8, 257-8, 3083- ####[facility] [id number] [place] [address] [place] ALT [Catalytic activity/Vol] 51 U/L Normal 10-54 [facility] Comment on above: Order Comment: Speci men Type: BLOOD SPECIMENOrdering Facility: [facility] Address: [address] [place] [address] Performed By: #### 2 4323-8, 257-8, 3083-06 ####[facility] [id number] [place] [address] [place] Anion gap [Moles/Vol] 11 mmol/L Normal 9-18 [facility] Comment on above: Order Comment: Speci men Type: BLOOD SPECIMENOrdering Facility: [facility] Address: [address] [place] [address] Performed By: #### 2 4323-8, 257-8, 3083-06 ####[facility] [id number] [place] [address] [place] AST [Catalytic activity/Vol] 34 U/L Normal 14-40 [facility] Comment on above: Order Comment: Speci men Type: BLOOD SPECIMENOrdering Facility: [facility] Address: [address] [place] [address] Performed By: #### 2 4323-8, 257-8, 3083-1 ####[facility] [id number] [place] [address] [place] Bilirubin [Mass/Vol] 0.3 mg/dL Normal 0.2-1.3 [facility] Comment on above: Order Comment: Speci men Type: BLOOD SPECIMENOrdering Facility: [facility] Address: [address] [place] [address] Performed By: #### 2 4323-8, 2571-8, 3084-1 ####[facility] [place] [id number] [place] [address] [place] Calcium [Mass/Vol] 9.6 mg/dL Normal 8.5-10.2 [facility] Comment on above: Order Comment: Speci men Type: BLOOD SPECIMENOrdering Facility: [facility] Address: [address] [place] [address] Performed By: #### 2 4323-8, 2571-8, 3084-1 ####[facility] [place] [id number] [place] [address] [place] Chloride [Moles/Vol] 101 mmol/L Normal 97-105 [facility] Comment on above: Order Comment: Speci men Type: BLOOD SPECIMENOrdering Facility: [facility] Address: [address] [place] [address] Performed By: #### 2 4323-8, 2571-8, 3084-1 ####[facility] [place] [id number] [place] [address] [place] CO2 [Moles/Vol] 23 mmol/L Normal 22-30 [facility] Comment on above: Order Comment: Speci men Type: BLOOD SPECIMENOrdering Facility: [facility] Address: [address] [place] [address] Performed By: #### 2 4323-8, 2571-8, 3084-1 ####[facility] [id number] [place] [address] [place] Creatinine [Mass/Vol] 0.63 mg/dL Low 0.73-1.22 [facility] Comment on above: Order Comment: Rosa gaspar Type: BLOOD SPECIMENOrdering Facility: [facility] Address: [address] [place] [address] Performed By: #### 2 4323-8, 2571-8, 3084-1 ####[facility] [id number] [address] [place] Creatinine and Glomerular filtration rate.predicted panel (S/P/Bld) 113 mL/min/1.73m??? Normal >=60 [facility] Comment on above: Order Comment: Rosa gaspar Type: BLOOD SPECIMENOrdering Facility: [facility] Address: [address] [place] [address] Result Comment: Najma mated Glomerular Filtration Rate (eGFR) is calculated using the 2020 CKD-EPI creatinine equation. This equation utilizes serum creatinine, sex, and age as parameters. The creatinine assay has traceable calibration to isotope dilution-mass spectrometry. Refer to KDIGO guidelines for clinical interpretation. In patients with unstable renal function, e.g. those with acute kidney injury, the eGFR may not accurately reflect actual GFR. Performed By: #### 2 4323-8, 2571-8, 3084-1 ####[facility] [id number] [place] [address] [place] Glucose [Mass/Vol] 108 mg/dL High 74-99 [facility] Comment on above: Order Comment: Rosa gaspar Type: BLOOD SPECIMENOrdering Facility: [facility] Address: [address] [place] [address] Result Comment: The [place] [employer] (ADA) provides guidance for cutoff values for fasting glucose and random glucose. The ADA defines fasting as no caloric intake for at least 8 hours. Fasting plasma glucose results between 100 to 125 mg/dL indicate increased risk for diabetes (prediabetes).Fasting plasma glucose results greater than or equal to 126 mg/dL meet the criteria for diagnosis of diabetes. In the absence of unequivocal hyperglycemia, results should be confirmed by repeat testing. In a patient with classic symptoms of hyperglycemia or hyperglycemic crisis, random plasma glucose results greater than or equal to 200 mg/dL meet the criteria for diagnosis of diabetes.Reference: Standards of Medical Care in Diabetes 2016, [place] [employer]. Diabetes Care. 2016.39(Suppl 1). Performed By: #### 2 4323-8, 1-8, 3083-1 ####[facility] [id number] [place] [address] [place] Potassium [Moles/Vol] 4.6 mmol/L Normal 3.7-5.1 [facility] Comment on above: Order Comment: Speci men Type: BLOOD SPECIMENOrdering Facility: [facility] Address: [address] [place] [address] Performed By: #### 2 4323-8, 8, 3083-06 ####[facility] [place] [id number] [place] [address] [place] Protein [Mass/Vol] 8.3 g/dL High 6.3-8.0 [facility] Comment on above: Order Comment: Speci men Type: BLOOD SPECIMENOrdering Facility: [facility] Address: [address] [place] [address] Performed By: #### 2 4323-8, 8, 3083-06 ####[facility] [id number] [place] [address] [place] Sodium [Moles/Vol] 135 mmol/L Low 136-144 [facility] Comment on above: Order Comment: Speci men Type: BLOOD SPECIMENOrdering Facility: [facility] Address: [address] [place], [place] [address] Performed By: #### 2 4323-8, 8, 3083-1 ####[facility] [id number] [place] [id number] [place] Urea nitrogen [Mass/Vol] 10 mg/dL Normal 9-24 [facility] Comment on above: Order Comment: Speci men Type: BLOOD SPECIMENOrdering Facility: [facility] Address: [address] [place] [address] Performed By: #### 2 4323-8, 2571-8, 3084-1 ####[facility] [id number] [place] [address] [place] [id number] 07-09-2023 ECG01 Normal [facility] ECG01 Normal [facility] HIGH SENSITIVITY TROPONIN To n 07-09-2023 Troponin T.cardiac High sensitivity method [Mass/Vol] 27 ng/L High <12 [facility] Comment on above: Order Comment: Rosa gaspar Type: BLOOD SPECIMENOrdering Facility: [facility] Address: [address] [place] [address] Result Comment: When assessing risk for acute coronary syndromes: In patients undergoing blood draw greater than or equal to 2 hours from symptom onset, with history of very low to moderate risk and non-ischemic ECG, an initial hs-Troponin T less than 12 ng/L AND a 1 hour delta hs-Troponin T less than 3 ng/L should be considered very low risk for 30 day MACE. Performed By: #### 2 157-6, HSTNT, 52513-5 ####[facility] [id number] [place] [address] [place] HbA1c (Bld)on 07-09-2023 Average glucose Estimated from glycated hemoglobin (Bld) [Mass/Vol] 134 mg/dL Normal [facility] Comment on above: Order Comment: Rosa gaspar Type: BLOOD SPECIMENOrdering Facility: [facility] Address: [address] [place] [address] Result Comment: eAG: (Estimated average glucose) is a calculated value from HgbA1c and is registered representative of the average blood glucose level in the last 2-3 month period. Performed By: #### 5 5454-3 ####[facility] [id number] [place] [address] [place] HbA1c (Bld) [Mass fraction] 6.3 % High 4.3-5.6 [facility] Comment on above: Order Comment: Speci men Type: BLOOD SPECIMENOrdering Facility: [facility] Address: [address] [place] [address] Result Comment: [place] Diabetes Association guidelines indicate that patients with HgbA1c in the range 5.7-6.4% are at increased risk for development of diabetes, and intervention by lifestyle modification may be beneficial. HgbA1c greater or equal to 6.5% is considered diagnostic of diabetes. Performed By: #### 5 5454-3 ####[facility] [id number] [place] [address] [place] Lipase SerPl-cCncon 07-09-19 24 Lipase [Catalytic activity/Vol] 37 U/L Normal 16-61 [facility] Comment on above: Order Comment: Speci men Type: BLOOD SPECIMENOrdering Facility: [facility] Address: [address] [place] [address] Performed By: #### 1 798-8, 34887-2, 3040-3, 42908-0, 2777-1 ####[facility] [id number] [place] [address] [place] Magnesium SerPl-mCncon 07-09 Magnesium [Mass/Vol] 2.2 mg/dL Normal 1.7-2.3 [facility] Comment on above: Order Comment: Speci men Type: BLOOD SPECIMENOrdering Facility: [facility] Address: [address] [place] [address] Performed By: #### 1 798-8, 69966-2, 3040-3, 38420-5, 2777-1 ####[facility] [id number] [place] [address] [place] PT panel Coag (PPP)on 2023 INR Coag (PPP) [Relative time] 1.0 {INR} Normal 0.9-1.3 [facility] Comment on above: Order Comment: Speci men Type: BLOOD SPECIMENOrdering Facility: [facility] Address: [address] [place] [address] Result Comment: Nyla min K Antagonist (VKA) Therapeutic Range: INR 2 to 3 (Target INR of 2.5)Note: For patients treated with VKA drugs, such as warfarin, the [place] [employer] 2012 Guideline recommends a therapeutic INR range of 2 to 3 (target INR of 2.5). This recommendation includes high-risk patients with antiphospholipid syndrome with previous arterial or venous thromboembolism, current-generation mechanical or bioprosthetic aortic heart valve replacement.Note: Patients with mechanical aortic valve replacement and additional risk factors for thromboembolic events (atrial fibrillation, previous thromboembolism, LV dysfunction, hypercoagulable conditions) or an older generation mechanical AVR (i.e., ball in-Cage) or any mechanical MVR should have a INR therapeutic range of 2.5 to 3.5 (target INR of 3).Coby REYES, et al. Chest 2012, 141:7S-47SNishelli RA, et al. [facility] 2017, 70: 252-289 Performed By: #### 3 4528-0, 18114-5 ####[facility] [id number] [place] [address] [place] PT Coag (PPP) [Time] 10.9 s Normal 9.7-13.0 [facility] Comment on above: Order Comment: Speci men Type: BLOOD SPECIMENOrdering Facility: [facility] Address: [address] [place] [address] Performed By: #### 3 4528-0, 35210-7 ####[facility] [id number] [place] [id number] [place] Phosphate SerPl-mCncon 07-09 Phosphate [Mass/Vol] 3.8 mg/dL Normal 2.7-4.8 [facility] Comment on above: Order Comment: Speci men Type: BLOOD SPECIMENOrdering Facility: [facility] Address: [address] [place] [address] Performed By: #### 1 798-8, 51460-8, 3040-3, 29674-8, 2777-1 ####[facility] [id number] [place] [address] [place] Trigl SerPl-mCncon Triglyceride [Mass/Vol] 162 mg/dL High <150 [facility] Comment on above: Order Comment: Speci men Type: BLOOD SPECIMENOrdering Facility: [facility] Address: [address] [place] [address] Result Comment: <150 mg/dL, Normal 150-199 mg/dL, Borderline high 200-499 mg/dL, High>499 mg/dL, Very highReference:1. National Cholesterol Education Program ATP III Guideline At-A-Glance Quick Desk Reference: National Heart, Lung, and Blood [place]. National Institutes of Health. 2001: NIH Publication No. 01-3305. Performed By: #### 2 4323-8, 2571-8, 3084-1 ####[facility] [facility] [id number] [place] [address] [place] Triglyceride [Mass/Vol]on FASTING TIME 13 hrs Normal [facility] Comment on above: Order Comment: Speci men Type: BLOOD SPECIMENOrdering Facility: [facility] Address: [address] [place] [address] Performed By: #### 2 4323-8, 2571-8, 3084-1 ####[facility] [id number] [place] [address] [place] URINALYSIS, DIPSTICK ONLYon 07-09-2023 Bilirubin Ql (U) Negative Normal Negative [facility] Comment on above: Order Comment: Speci men Type: URINE SPECIMENOrdering Facility: [facility] Address: [address] [place] [address] Performed By: #### U A ####[facility] [id number] [place] [address] [place] Clarity (Unsp spec) Clear Normal Clear [facility] Comment on above: Order Comment: Speci men Type: URINE SPECIMENOrdering Facility: [facility] Address: [address] [place] [address] Performed By: #### U A ####[facility] LABCLIA [id number] [place] [address] [place] Color (U) Yellow Normal Yellow [facility] Comment on above: Order Comment: Speci men Type: URINE SPECIMENOrdering Facility: [facility] Address: [address] [place] [address] Performed By: #### U A ####[facility] LABCLIA [id number] [place] [address] [place] Glucose Test strip (U) [Mass/Vol] 3+ Abnormal Negative [facility] Comment on above: Order Comment: Speci men Type: URINE SPECIMENOrdering Facility: [facility] Address: [address] [place] [address] Performed By: #### U A ####[facility] LABCLIA [id number] [place] [address] [place] Hemoglobin Ql (U) Negative Normal Negative [facility] Comment on above: Order Comment: Speci men Type: URINE SPECIMENOrdering Facility: [facility] Address: [address] [place] [address] Performed By: #### U A ####[facility] LABCLIA [id number] [place] [address] [place] Ketones Ql (U) Negative Normal Negative [facility] Comment on above: Order Comment: Speci men Type: URINE SPECIMENOrdering Facility: [facility] Address: [address] [place] [address] Performed By: #### U A ####[facility] LABCLIA [id number] [place] [address] [place] Leukocyte esterase Test strip Ql (U) Negative Normal Negative [facility] Comment on above: Order Comment: Speci men Type: URINE SPECIMENOrdering Facility: [facility] Address: [address] [place] [address] Performed By: #### U A ####[facility] LABCLIA [id number] [place] [address] [place] Nitrite Ql (U) Negative Normal Negative [facility] Comment on above: Order Comment: Speci men Type: URINE SPECIMENOrdering Facility: [facility] Address: [address] [place] [address] Performed By: #### U A ####[facility] LABIA [id number] [place] [address] [place] pH (U) 6.0 [pH] Normal <8.5 [facility] Comment on above: Order Comment: Speci men Type: URINE SPECIMENOrdering Facility: [facility] Address: [address] [place] [address] Performed By: #### U A ####[facility] LABIA [id number] [place] [address] [place] Protein (U) [Mass/Vol] Negative Normal Negative [facility] Comment on above: Order Comment: Speci men Type: URINE SPECIMENOrdering Facility: [facility] Address: [address] [place] [address] Performed By: #### U A ####[facility] LABIA [id number] [place] [address] [place] Specific gravity (U) [Rel density] 1.018 Normal 1.005-1.030 [facility] Comment on above: Order Comment: Speci men Type: URINE SPECIMENOrdering Facility: [facility] Address: [address] [place] [address] Performed By: #### U A ####[facility] LABIA [id number] [place] [address] [place] Urobilinogen Ql (U) 0.2 EU/dL Normal 0.2-1.0 EU/dL [facility] Comment on above: Order Comment: Speci men Type: URINE SPECIMENOrdering Facility: [facility] Address: [address] [place] [address] Performed By: #### U A ####[facility] [id number] [place] [address] [place] Urate SerPl-mCncon Urate [Mass/Vol] 3.5 mg/dL Low 4.0-8.1 [facility] Comment on above: Order Comment: Speci men Type: BLOOD SPECIMENOrdering Facility: [facility] Address: [address] [place] [address] Performed By: #### 2 4323-8, 2571-8, 3084-1 ####[facility] [id number] [place] [address] [place] aPTT PPPon 07-09-2023 aPTT Coag (PPP) [Time] 27.1 s Normal 23.0-32.4 [facility] Comment on above: Order Comment: Speci men Type: BLOOD SPECIMENOrdering Facility: [facility] Address: [address] [place] [address] Performed By: #### 3 4528-0, 25980-4 ####[facility] [id number] [place] [address] [place] CNPNon 07-01-2023 CNPN Normal [facility] CNOVon 06-13-2023 CNOV Normal [facility] XR SHLDR 4V AP/MAIKOL/LAT/OUTLE T RTon 06-13-2023 XR SHLDR 4V AP/MAIKOL/LAT/OUTLET RT Normal [facility] CNPNon 05-20-2023 CNPN Normal [facility] CNPNon 05-09-2023 CNPN Normal [facility] CNPNon 11-21-2023 CNPN Normal [facility] BCR/ABL1 P190 QUANTITATIVE P CR BONE MARROWon 04-18-2023 BCR/ABL1 P190 INTERPRETATION BONE MARROW Normal [facility] Comment on above: Order Comment: Speci men Type: BONE MARROW SPECIMENOrdering Facility: [facility] Address: [address] [place] [address] [place] [address] Result Comment: BCR/ ABL1 p190 Quantitative PCRLaboratory Accession Number: [id number]:UNDETECTEDNCN: N/AInterpretation:p190 BCR/ABL1 transcripts were not detected. This result does notexclude the possibility of very low level transcripts below the limitof detection of this assay (>MR4.6), and a result of not detected does not exclude the presence of other BCR/ABL1 transcripts nottargeted by this assay. Clinical correlation is suggested.Methodology:RNA was extracted from this sample, and cDNA prepared by reversetranscription. Real time PCR was performed using primers for l4z6MJV/ABL1 fusion transcripts and ABL1 transcripts (qPCR BCR/ABL minor,[employer], [place], [place]). This test does not detect p210 (e13a2 or e14a2)or other rare BCR/ABL1 transcripts. This assay has a limit ofquantification of 0.0036% (LR4.4) and limit of detection of 0.0025%(LR4.6).Disclaimer:This test was developed and its performance characteristics determinedby [facility]'s [facility] LaboratoryMed[facility] [place] ([facility]). It has not been cleared or approved bythe FDA. [facility] is regulated under CLIA as certified to perform high-complexity testing. This test is used for clinical purposes. It shouldnot be regarded as investigational or for research.Testing and interpretation performed at [facility], [address] [place] [address]. CLIA Number: [id number] reviewed by Lina Langford, PhD, [facility] Performed By: #### P 190B ####[facility] LIMSCLIA [id number] [place] [address] [place]#### 190NCBB ####[facility] LABCLIA [id number] [place] BCR/ABL1 V233MRZ (%BCR/ABL1: ABL1)on 04-18-2023 BCR/ABL1 P190 NCN(%BCR/ABL1:ABL1 ) N/A Normal [facility] Comment on above: Order Comment: Rosa gaspar Type: BONE MARROW SPECIMENOrdering Facility: [facility] Address: [address] [place] [address] Performed By: #### P 190B ####[facility] LIMSCL[facility] [id number] [place] [address] [place]#### 190NCBB ####[facility] LABCLIA [id number] [address] [place] BONE MARROW ANALYSISon 04-18 CASE REPORT Normal [facility] Comment on above: Order Comment: Rosa gaspar Type: BONE MARROW SPECIMENOrdering Facility: [facility] Address: [address] [place] [address] Result Comment: Bone Marrow Pathology Report Case: [id number] Provider: William Howell MD, Collected: 04/18/2023 09:10 AM PhDOrdering Location: [place] [address] Received: 04/18/2023 11:01 AMPathologist: Gmema Torres MDSpecimens: A) - BONE MARROW ASPIRATE RIGHT POSTERIOR ILIAC CREST B) - BONE MARROW BIOPSY RIGHT POSTERIOR ILIAC CREST C) - BONE MARROW CLOT RIGHT POSTERIOR ILIAC CREST D) - Peripheral blood smear Performed By: #### B MRT ####[facility] LABCLIA [id number] [place] [address] [place] DIAGNOSIS COMMENT Normal [facility] Comment on above: Order Comment: Michaeli men Type: BONE MARROW SPECIMENOrdering Facility: [facility] Address: [address] [place] [address] Result Comment: The patient has history of chronic myeloid leukemia and subsequent therapy. A recent BCR/ABL1 transcripts by p210 quantitavie PCR was positive (04/2023). Flow cytometry on this specimen shows no immunophenotypic evidence of lymphoproliferative disorder or abnormal blast population (see flow report).The bone marrow shows normal cellularity for age with trilineage hematopoiesis. M:E ratio is normal. Megakaryocytes are adequate in numbers and show unremarkable morphology. No significant increase in blasts or granulocytic hyperplasia with left shifted maturation was not noted on this specimen. However, given the presence of p210 BCR/ABL1 transcripts by molecular genetic study, this case represents genetically persistent disease. Correlation with clinical findings and pending cytogenetic and molecular genetic results is suggested. Performed By: #### B MRT ####[facility] LABCLIA [id number] [address] Result Comment: This test was developed and its performance characteristics determined by [facility] [place] ([facility]). It has not been cleared or approved by the FDA. -[facility] is regulated under CLIA as qualified to perform high-complexity testing. This test is used for clinical purposes. It should not be regarded as investigational or for research. Performed By: #### F CLLRFLX, FCLLP ####[facility] LABCLIA [id number] [address] FINAL DIAGNOSIS Normal [facility] Comment on above: Order Comment: Speci men Type: BONE MARROW SPECIMENOrdering Facility: [facility] Address: [address] [place] [address] Result Comment: A-C. Bone marrow, aspirate smear and core biopsy, with clot section:- Normocellular marrow (~50%) with trilineage hematopoiesis and normal M:E ratio.- See comment.D. Peripheral blood smear:- Leukocytosis and mild eosinophilia.HJR 04/21/2023 Performed By: #### B MRT ####[facility] LABCLIA [id number] [address] FINAL PERFORMING LAB Normal [facility] Comment on above: Order Comment: Speci men Type: BONE MARROW SPECIMENOrdering Facility: [facility] Address: [address] [place] [address] Result Comment: Diag nostic interpretation performed at [facility], [address] [place] [address] CLIA# [id number] Director: Tico Jeter M.D. Performed By: #### B MRT ####[facility] LABCLIA [id number] [address] Performed By: #### F CLLRFLX, FCLLP ####[facility] LABCLIA [id number] [address] [place] GROSS DESCRIPTION Normal [facility] Comment on above: Order Comment: Speci men Type: BONE MARROW SPECIMENOrdering Facility: [facility] Address: [address] [place] [address] Result Comment: A. B ONE MARROW ASPIRATE RIGHT POSTERIOR ILIAC CRESTReceived are air-dried bone marrow aspirate smears. Submitted for light microscopy.B. BONE MARROW BIOPSY RIGHT POSTERIOR ILIAC CRESTReceived in formalin are multiple segments of cylindrical tissue aggregating to 1.7 x 0.6 x 0.2 cm, dueñas to red-brown and of a firm consistency. Totally submitted in formalin in one cassette after decalcification.C. BONE MARROW CLOT RIGHT POSTERIOR ILIAC CRESTReceived in formalin is a segment of red-brown hemorrhagic material measuring 1.7 x 1.3 x 0.4 cm. Totally submitted in one cassette.D. Peripheral blood smearReceived is a peripheral blood smear. Submitted for light microscopy.Gross examination performed at [facility], [address] [place] [address].[place], [place] [address]TR 04/18/2023 7:43 PM Performed By: #### B MRT ####[facility] LABCLIA [id number] [address] [place] MICROSCOPIC DESCRIPTION Normal [facility] Comment on above: Order Comment: Speci men Type: BONE MARROW SPECIMENOrdering Facility: [facility] Address: [address] [place] [address] Result Comment: JOSSY PHERAL BLOOD:CBC (04/18/2023 10:51 AM) Diff: AutoWBC 12.75 k/uL Neutrophils % 62Hemoglobin 16.0 g/dL Lymphocytes % 25.3MCV 79.3 fL Monocytes % 6.7RDW-CV 14.3 % Eosinophils % 4.7Platelet Count 275 k/uL Basophils % 0.6 Immature Granulocytes % 0.7Morphology/Interpretation: Neutrophilic leukocytosis with a mild eosinophilia. Microcytic red cells without anemia.BONE MARROW ASPIRATE:Result Normal Range2 % Blasts 0-21 % Promyelocytes 1-549 % Myelos/Metas/Bands/Segs 32-725 % Eosinophils 1-60 % Basophils 0-12 % Monocytes 0-425 % Erythroid precursors 13-3716 % Lymphocytes 7-230 % Plasma cells 0-2 Myeloid/Erythro (1.5-4): 2.4 Cells counted: 300. Iron stain result: Decreased iron stores, no ring sideroblasts. Specimen Quality: Cellular and spicular. Megakaryocytes: Adequate numbers with predominantly unremarkable morphology. Erythropoiesis: Progressive maturation. Granulopoiesis: Progressive maturation. Other: No significant dysplastic features or increased blasts.BONE MARROW BIOPSY: Adequacy: Adequate. Cellularity: Appears normal for age (approximately 50%). ME ratio: Appears normal. Hematopoiesis: Trilineage hematopoiesis. Megakaryocytes: Adequate. Megakaryocyte morphology: Predominantly normal morphology with occasional hypolobated forms. Lymphoid infiltrate: Not present. Bone trabeculae: Unremarkable. Other: Mildly increased eosinophils.CLOT SECTION: Marrow particles: Many. Morphology: Similar to biopsy. Other: Performed.ANCILLARY TESTS: Flow cytometry: Performed. Cytogenetics: Pending. FISH: N/A. Molecular: Buffy coat stored. BCR-ABL1 p190 quantitative PCR Performed By: #### B MRT ####[facility] LABCLIA [id number] [facility] [id number] [address] [place] BONE MARROW CHROMOSOME ANALo n 04-18-2023 CHROMOSOME BM Normal [facility] Comment on above: Order Comment: Order ing [facility] Address: [address] [place] [address] Result Comment: Leena pérez Accession Number: [id number]: Alycia HowelloPathologist: Zena Pathology No: [id number] diagnosis: Chronic Myeloid LeukemiaSpecimen Type: Bone MarrowReceived Date: 04/18/2023Number of cells counted: 20Number of cells analyzed: 20Number of cells karyotyped: 20Banding resolution: 400Banding method: G-bandingDIAGNOSIS: 46,XY[20]INTERPRETATION: Normal, male karyotypeCOMMENT: Ten metaphase cells were analyzed from the culturesupplemented with GM-CSF and ten metaphase cells were analyzed fromthe 24 hour unstimulated culture. Twenty cells analyzed showed a 46,XYkaryotype or had non-clonal (single cell) changes attributed toculture artifact. There was no significant numerical chromosomeabnormality and no structural change detected within the limits ofresolution.No cells with the [place] chromosome as seen in previous studiesfrom December 2014, March 2016, April 2017, April 2019, andApril 2020 were identified in the current study, consistent withcytogenetic remission. Other studies in April 2018, August 2019,September and December 2020, June, November and May 2022 and Octoberemonstrated a 46,XY karyotype.Clinical and pathologic correlation is recommended.As reviewed by Jame Srivastava MDPerformed by [facility] Hospital[facility]ology [facility] Laboratory Medicine InstituteDivision of Molecular PathologyCytogenetics Lab, [id number] [facility]. [place], [place] [address]Phone: Toll free: Performed By: #### C [facility] ####[facility]CL[facility] [id number] [facility] [id number] [place] [address] [place] BRIEF OP NOTon 04-18-2023 BRIEF OP NOT Normal [facility] CBC W Auto Differential pane l (Bld)on 04-18-2023 Basophils (Bld) [#/Vol] 0.08 10*3/uL Normal <0.11 [facility] Comment on above: Order Comment: Speci men Type: BLOOD SPECIMENOrdering Facility: [facility] Address: [address] [place] [address] Performed By: #### 5 7021-8 ####[facility] LABCLIA [id number] [place] [address] [place] Basophils/100 WBC (Bld) 0.6 % Normal [facility] Comment on above: Order Comment: Speci men Type: BLOOD SPECIMENOrdering Facility: [facility] Address: [address] [place] [address] Performed By: #### 5 7021-8 ####[facility] LABCLIA [id number] [place] [address] [place] Differential cell count method Nom (Bld) Auto Normal [facility] Comment on above: Order Comment: Speci men Type: BLOOD SPECIMENOrdering Facility: [facility] Address: [address] [place] [address] Performed By: #### 5 7021-8 ####[facility] LABCLIA [id number] [place] [address] [place] Eosinophils (Bld) [#/Vol] 0.60 10*3/uL High <0.46 [facility] Comment on above: Order Comment: Speci men Type: BLOOD SPECIMENOrdering Facility: [facility] Address: [address] [place] [address] Performed By: #### 5 7021-8 ####[facility] LABCLIA [id number] [place] [address] [place] Eosinophils/100 WBC (Bld) 4.7 % Normal [facility] Comment on above: Order Comment: Speci men Type: BLOOD SPECIMENOrdering Facility: [facility] Address: [address] [place] [address] Performed By: #### 5 7021-8 ####[facility] LABCLIA [id number] [place] [address] [place] Erythrocyte distribution width (RBC) [Ratio] 14.3 % Normal 11.5-15.0 [facility] Comment on above: Order Comment: Speci men Type: BLOOD SPECIMENOrdering Facility: [facility] Address: [address] [place] [address] Performed By: #### 5 7021-8 ####[facility] LABCLIA [id number] [place] [address] [place] Hematocrit (Bld) [Volume fraction] 47.6 % Normal 39.0-51.0 [facility] Comment on above: Order Comment: Speci men Type: BLOOD SPECIMENOrdering Facility: [facility] Address: [address] [place] [address] Performed By: #### 5 7021-8 ####[facility] LABIA [id number] [place] [address] [place] Hemoglobin (Bld) [Mass/Vol] 16.0 g/dL Normal 13.0-17.0 [facility] Comment on above: Order Comment: Speci men Type: BLOOD SPECIMENOrdering Facility: [facility] Address: [address] [place] [address] Performed By: #### 5 7021-8 ####[facility] LABIA [id number] [place] [address] [place] Immature granulocytes (Bld) [#/Vol] 0.09 10*3/uL Normal <0.10 [facility] Comment on above: Order Comment: Speci men Type: BLOOD SPECIMENOrdering Facility: [facility] Address: [address] [place] [address] Performed By: #### 5 7021-8 ####[facility] LABCLIA [id number] [place] [address] [place] Immature granulocytes/100 WBC (Bld) 0.7 % Normal [facility] Comment on above: Order Comment: Speci men Type: BLOOD SPECIMENOrdering Facility: [facility] Address: [address] [place] [address] Performed By: #### 5 7021-8 ####[facility] LABCLIA [id number] [place] [address] [place] Lymphocytes (Bld) [#/Vol] 3.23 10*3/uL Normal 1.00-4.00 [facility] Comment on above: Order Comment: Speci men Type: BLOOD SPECIMENOrdering Facility: [facility] Address: [address] [place] [address] Performed By: #### 5 7021-8 ####[facility] LABCLIA [id number] [place] [address] [place] Lymphocytes/100 WBC (Bld) 25.3 % Normal [facility] Comment on above: Order Comment: Speci men Type: BLOOD SPECIMENOrdering Facility: [facility] Address: [address] [place] [address] Performed By: #### 5 7021-8 ####[facility] LABCLIA [id number] [place] [address] [place] MCH (RBC) [Entitic mass] 26.7 pg Normal 26.0-34.0 [facility] Comment on above: Order Comment: Speci men Type: BLOOD SPECIMENOrdering Facility: [facility] Address: [address] [place] [address] Performed By: #### 5 7021-8 ####[facility] LABCLIA [id number] [place] [address] [place] MCHC (RBC) [Mass/Vol] 33.6 g/dL Normal 30.5-36.0 [facility] Comment on above: Order Comment: Speci men Type: BLOOD SPECIMENOrdering Facility: [facility] Address: [address] [place] [address] Performed By: #### 5 7021-8 ####[facility] LABCLIA [id number] [place] [address] [place] MCV (RBC) [Entitic vol] 79.3 fL Low 80.0-100.0 [facility] Comment on above: Order Comment: Speci men Type: BLOOD SPECIMENOrdering Facility: [facility] Address: [address] [place] [address] Performed By: #### 5 7021-8 ####[facility] LABCLIA [id number] [place] [address] [place] Monocytes (Bld) [#/Vol] 0.86 10*3/uL Normal <0.87 [facility] Comment on above: Order Comment: Speci men Type: BLOOD SPECIMENOrdering Facility: [facility] Address: [address] [place] [address] Performed By: #### 5 7021-8 ####[facility] LABCLIA [id number] [place] [address] [place] Monocytes/100 WBC (Bld) 6.7 % Normal [facility] Comment on above: Order Comment: Speci men Type: BLOOD SPECIMENOrdering Facility: [facility] Address: [address] [place] [address] Performed By: #### 5 7021-8 ####[facility] LABCLIA [id number] [place] [address] [place] Neutrophils (Bld) [#/Vol] 7.89 10*3/uL High 1.45-7.50 [facility] Comment on above: Order Comment: Speci men Type: BLOOD SPECIMENOrdering Facility: [facility] Address: [address] [place] [address] Performed By: #### 5 7021-8 ####[facility] LABCLIA [id number] [place] [address] [place] Neutrophils/100 WBC (Bld) 62.0 % Normal [facility] Comment on above: Order Comment: Speci men Type: BLOOD SPECIMENOrdering Facility: [facility] Address: [address] [place] [address] Performed By: #### 5 7021-8 ####[facility] LABCLIA [id number] [place] [address] [place] Nucleated RBC (Bld) [#/Vol] 10*3/uL Normal <0.01 [facility] Comment on above: Order Comment: Speci men Type: BLOOD SPECIMENOrdering Facility: [facility] Address: [address] [place] [address] Performed By: #### 5 7021-8 ####[facility] LABCLIA [id number] [place] [address] [place] Nucleated RBC/100 WBC (Bld) [Ratio] 0.0 /100 WBC Normal [facility] Comment on above: Order Comment: Speci men Type: BLOOD SPECIMENOrdering Facility: [facility] Address: [address] [place] [address] Performed By: #### 5 7021-8 ####[facility] LABCLIA [id number] [place] [address] [place] Platelet mean volume (Bld) [Entitic vol] 10.2 fL Normal 9.0-12.7 [facility] Comment on above: Order Comment: Speci men Type: BLOOD SPECIMENOrdering Facility: [facility] Address: [address] [place] [address] Performed By: #### 5 7021-8 ####[facility] LABCLIA [id number] [place] [address] [place] Platelets (Bld) [#/Vol] 275 10*3/uL Normal 150-400 [facility] Comment on above: Order Comment: Speci men Type: BLOOD SPECIMENOrdering Facility: [facility] Address: [address] [place] [address] Performed By: #### 5 7021-8 ####[facility] [facility] LABCLIA [id number] [place] [address] [place] RBC (Bld) [#/Vol] 6.00 10*6/uL Normal 4.20-6.00 [facility] Comment on above: Order Comment: Speci men Type: BLOOD SPECIMENOrdering Facility: [facility] Address: [address] [place] [address] Performed By: #### 5 7021-8 ####[facility] LABIA [id number] [place] [address] [place] WBC (Bld) [#/Vol] 12.75 10*3/uL High 3.70-11.00 [facility] Comment on above: Order Comment: Speci men Type: BLOOD SPECIMENOrdering Facility: [facility] Address: [address] [place] [address] Performed By: #### 5 7021-8 ####[facility] LABIA [id number] [place] [address] [place] Basophils (Bld) [#/Vol] 0.08 10*3/uL <0.11 k/uL [facility] Basophils/100 WBC (Bld) 0.6 % [facility] Differential cell count method Nom (Bld) Auto [facility] Eosinophils (Bld) [#/Vol] 0.60 10*3/uL High <0.46 k/uL [facility] Eosinophils/100 WBC (Bld) 4.7 % [facility] Erythrocyte distribution width (RBC) [Ratio] 14.3 % 11.5 - 15.0 % [facility] Hematocrit (Bld) [Volume fraction] 47.6 % 39.0 - 51.0 % [facility] Hemoglobin (Bld) [Mass/Vol] 16.0 g/dL 13.0 - 17.0 g/dL [facility] Immature granulocytes (Bld) [#/Vol] 0.09 10*3/uL <0.10 k/uL [facility] Immature granulocytes/100 WBC (Bld) 0.7 % [facility] Lymphocytes (Bld) [#/Vol] 3.23 10*3/uL 1.00 - 4.00 k/uL [facility] Lymphocytes/100 WBC (Bld) 25.3 % [facility] MCH (RBC) [Entitic mass] 26.7 pg 26.0 - 34.0 pg [facility] MCHC (RBC) [Mass/Vol] 33.6 g/dL 30.5 - 36.0 g/dL [facility] MCV (RBC) [Entitic vol] 79.3 fL Low 80.0 - 100.0 fL [facility] Monocytes (Bld) [#/Vol] 0.86 10*3/uL <0.87 k/uL [facility] Monocytes/100 WBC (Bld) 6.7 % [facility] Neutrophils (Bld) [#/Vol] 7.89 10*3/uL High 1.45 - 7.50 k/uL [facility] Neutrophils/100 WBC (Bld) 62.0 % [facility] Nucleated RBC (Bld) [#/Vol] <0.01 k/uL [facility] Nucleated RBC/100 WBC (Bld) [Ratio] 0.0 /100 WBC [facility] Platelet mean volume (Bld) [Entitic vol] 10.2 fL 9.0 - 12.7 fL [facility] Platelets (Bld) [#/Vol] 275 10*3/uL 150 - 400 k/uL [facility] RBC (Bld) [#/Vol] 6.00 10*6/uL 4.20 - 6.0 0 m/uL [facility] WBC (Bld) [#/Vol] 12.75 10*3/uL High 3.70 - 11 .00 k/uL [facility] CT BIOPSY BONE MARROW (HEMO) on 04-18-2023 CT BIOPSY BONE MARROW (HEMO) Normal [facility] Comprehensive metabolic 2000 panelon 04-18-2023 Albumin [Mass/Vol] 3.9 g/dL Normal 3.9-4.9 [facility] Comment on above: Order Comment: Speci men Type: BLOOD SPECIMENOrdering Facility: [facility] Address: [address] [place] [address] Performed By: #### 2 4323-8 ####[facility] LABCLIA [id number] [place] [address] [place] ALP [Catalytic activity/Vol] 241 U/L High 38-113 [facility] Comment on above: Order Comment: Speci men Type: BLOOD SPECIMENOrdering Facility: [facility] Address: [address] [place] [address] Performed By: #### 2 4323-8 ####[facility] LABCLIA [id number] [place] [address] [place] ALT [Catalytic activity/Vol] 48 U/L Normal 10-54 [facility] Comment on above: Order Comment: Speci men Type: BLOOD SPECIMENOrdering Facility: [facility] Address: [address] [place] [address] Performed By: #### 2 4323-8 ####[facility] LABCLIA [id number] [place] [address] [place] Anion gap [Moles/Vol] 12 mmol/L Normal 9-18 [facility] Comment on above: Order Comment: Speci men Type: BLOOD SPECIMENOrdering Facility: [facility] Address: [address] [place] [address] Performed By: #### 2 4323-8 ####[facility] LABCLIA [id number] [place] [address] [place] AST [Catalytic activity/Vol] 38 U/L Normal 14-40 [facility] Comment on above: Order Comment: Speci men Type: BLOOD SPECIMENOrdering Facility: [facility] Address: [address] [place] [address] Performed By: #### 2 4323-8 ####[facility] LABCLIA [id number] [place] [address] [place] Bilirubin [Mass/Vol] 0.4 mg/dL Normal 0.2-1.3 [facility] Comment on above: Order Comment: Speci men Type: BLOOD SPECIMENOrdering Facility: [facility] Address: [address] [place] [address] Performed By: #### 2 4323-8 ####[facility] LABCLIA [id number] [place] [address] [place] Calcium [Mass/Vol] 10.0 mg/dL Normal 8.5-10.2 [facility] Comment on above: Order Comment: Speci men Type: BLOOD SPECIMENOrdering Facility: [facility] Address: [address] [place] [address] Performed By: #### 2 4323-8 ####[facility] LABCLIA [id number] [place] [address] [place] Chloride [Moles/Vol] 100 mmol/L Normal 97-105 [facility] Comment on above: Order Comment: Speci men Type: BLOOD SPECIMENOrdering Facility: [facility] Address: [address] [place] [address] Performed By: #### 2 4323-8 ####[facility] LABCLIA [id number] [place] [address] [place] CO2 [Moles/Vol] 23 mmol/L Normal 22-30 [facility] Comment on above: Order Comment: Speci men Type: BLOOD SPECIMENOrdering Facility: [facility] Address: [address] [place] [address] Performed By: #### 2 4323-8 ####[facility] LABCLIA [id number] [place] [address] [place] Creatinine [Mass/Vol] 0.72 mg/dL Low 0.73-1.22 [facility] Comment on above: Order Comment: Speci men Type: BLOOD SPECIMENOrdering Facility: [facility] Address: [address] [place] [address] Performed By: #### 2 4323-8 ####[facility] LABCLIA [id number] [place] [address] [place] Creatinine and Glomerular filtration rate.predicted panel (S/P/Bld) 109 mL/min/1.73m??? Normal >=60 [facility] Comment on above: Order Comment: Speci men Type: BLOOD SPECIMENOrdering Facility: [facility] Address: [address] [place] [address] Result Comment: Najma mated Glomerular Filtration Rate (eGFR) is calculated using the 2020 CKD-EPI creatinine equation. This equation utilizes serum creatinine, sex, and age as parameters. The creatinine assay has traceable calibration to isotope dilution-mass spectrometry. Refer to KDIGO guidelines for clinical interpretation. In patients with unstable renal function, e.g. those with acute kidney injury, the eGFR may not accurately reflect actual GFR. Performed By: #### 2 4323-8 ####[facility] LABCLIA [id number] [place] [address] [place] Glucose [Mass/Vol] 126 mg/dL High 74-99 [facility] Comment on above: Order Comment: Rosa gaspar Type: BLOOD SPECIMENOrdering Facility: [facility] Address: [address] [place] [address] Result Comment: The [place] [employer] (ADA) provides guidance for cutoff values for fasting glucose and random glucose. The ADA defines fasting as no caloric intake for at least 8 hours. Fasting plasma glucose results between 100 to 125 mg/dL indicate increased risk for diabetes (prediabetes).Fasting plasma glucose results greater than or equal to 126 mg/dL meet the criteria for diagnosis of diabetes. In the absence of unequivocal hyperglycemia, results should be confirmed by repeat testing. In a patient with classic symptoms of hyperglycemia or hyperglycemic crisis, random plasma glucose results greater than or equal to 200 mg/dL meet the criteria for diagnosis of diabetes.Reference: Standards of Medical Care in Diabetes 2016, [place] [employer]. Diabetes Care. 2016.39(Suppl 1). Performed By: #### 2 4323-8 ####[facility] LABCLIA [id number] [place] [id number] [place] Potassium [Moles/Vol] 4.7 mmol/L Normal 3.7-5.1 [facility] Comment on above: Order Comment: Rosa gaspar Type: BLOOD SPECIMENOrdering Facility: [facility] Address: [address] [place] [address] Performed By: #### 2 4323-8 ####[facility] LABCLIA [id number] [place] [id number] [place] Protein [Mass/Vol] 8.6 g/dL High 6.3-8.0 [facility] Comment on above: Order Comment: Speci men Type: BLOOD SPECIMENOrdering Facility: [facility] Address: [address] [place] [address] Performed By: #### 2 4323-8 ####[facility] LABCLIA [id number] [place] [address] [place] Sodium [Moles/Vol] 135 mmol/L Low 136-144 [facility] Comment on above: Order Comment: Speci men Type: BLOOD SPECIMENOrdering Facility: [facility] Address: [address] [place] [address] Performed By: #### 2 4323-8 ####[facility] LABIA [id number] [place] [address] [place] Urea nitrogen [Mass/Vol] 12 mg/dL Normal 9-24 [facility] Comment on above: Order Comment: Speci men Type: BLOOD SPECIMENOrdering Facility: [facility] Address: [address] [place] [address] Performed By: #### 2 4323-8 ####[facility] LABIA [id number] [place] [address] [place] DNA EXTRACTION BONE MARROW ( BUFFY COAT)on 04-18-2023 DNA EXTRACTION BONE MARROW (BUFFY COAT) Normal [facility] Comment on above: Order Comment: Speci men Type: BONE MARROW SPECIMENOrdering Facility: [facility] Address: [address] [place] [address] Result Comment: This specimen was received and successfully processed for future DNA purification should molecular testing be needed. Specimens will be available for 3 years from date of collection.To order testing on this specimen for [facility] patients, please place an [facility] order for DNA and RNA Clinical Testing ([id number]). To order testing for patients outside of the [facility] system, please request DNA and RNA for Clinical Testing, order code [id number].If additional paperwork is required for testing, please send completed forms via secure email to . Performed By: #### N UCBUF ####[facility] LIMSCLIA [id number] [address] FLOW CYTOMETRY FOR LEUKEMIA/ LYMPHOMA (FCLL) PERFORMABLEon 04-18-2023 FLOW CYTOMETRY ORDER STATUS See Results in chart under F case ID Normal [facility] Comment on above: Order Comment: Speci men Type: BONE MARROW SPECIMENOrdering Facility: [facility] Address: [address] [place] [address] Performed By: #### F CLLRFLX, FCLLP ####[facility] LABCLIA [id number] [address] FLOW CYTOMETRY FOR LEUKEMIA/ LYMPHOMA (FCLL) REFLEXon 04-18-2023 FLOW CYTOMETRY RESULTS Normal [facility] Comment on above: Order Comment: Speci men Type: BONE MARROW SPECIMENOrdering Facility: [facility] Address: [address] [place] [address] Result Comment: Spec imen type: Bone marrow aspirateViability: 99%Morphology comments: See associated bone marrow biopsy report.Flow Cytometry Bone Marrow ImmunophenotypingMarker Normal Cell Type Result (Lymphocytes)CD3 T-cells Normal PatternCD4 T-cell subset Normal PatternCD5 T-cells Normal PatternCD7 T/NK-cells Normal PatternCD8 T-cell subset Normal TbodgwgDR49 B-cell subset Normal EcuevkdRB01 Myeloid Normal LorviouES03/56 NK cells Normal GmguoxeVG57 B-cells Normal VshusqfLX09 B-cells Normal TjczcjbVA43 B-cells subset Normal SaaowjzBM63 Blast Normal WrolotkUR67 Costa-leukocyte Normal VmjcwiyHS237 Dendritic Normal OlukgygRF402 B-cells Normal Patternkappa/lambda B-cells Normal PatternFlow cytometric analysis of the bone marrow aspirate reveals that 10% of total events have the CD45 and side scatter properties of lymphocytes.The lymphocytes are composed of a mixture of heterogenous T-cells (59%; CD4:CD8 ratio = 0.96), NK cells (1%) and polytypic B-cells (38%).Blasts are not increased. 76% of the total events are granulocytes which are immunophenotypically unremarkable. Performed By: #### F CLLRFLX, FCLLP ####[facility] LABCLIA [id number] [place] [address] [place] GROSS DESCRIPTION A. Bone Marrow Normal [facility] Comment on above: Order Comment: Speci men Type: BONE MARROW SPECIMENOrdering Facility: [facility] Address: [address] [place] [address] Result Comment: RECE IVED 4 MLS BONE MARROW IN HEPARIN Performed By: #### F CLLRFLX FCLLP ####[facility] LABCLIA [id number] [place] [address] [place] INTERPRETATION Normal [facility] Comment on above: Order Comment: Speci men Type: BONE MARROW SPECIMENOrdering Facility: [facility] Address: [address] [place] [address] Result Comment: Ther e is no immunophenotypic evidence of involvement by a lymphoproliferative disorder or abnormal blast population. Correlation with the clinical and bone marrow histopathologic findings is suggested.HJR/RTM 04/21/2023 Performed By: #### F CLLRFLJean-Claude FCLLP ####[facility] LABCLIA [id number] [place] [address] [place] HISTORY PHYSICALon HISTORY PHYSICAL Normal [facility] NURSING PROGon 04-18-2023 NURSING PROG Normal [facility] PT EDon 04-18-2023 PT ED Normal [facility] ALBUMIN/CREAT RATIO RND URon 04-17-2023 Albumin DL <= 20 mg/L (U) [Mass/Vol] 32.8 mg/L Normal [facility] Comment on above: Order Comment: Speci men Type: URINE SPECIMENOrdering Facility: [facility] Address: [address] [place] [address] Performed By: #### U ACR ####[facility] LABCLIA [id number] [place] [address] [place] Albumin/Creatinine (U) [Mass ratio] 44 mg/g High <30 [facility] Comment on above: Order Comment: Speci men Type: URINE SPECIMENOrdering Facility: [facility] Address: [address] [place] [address] Result Comment: Adul t Male and Female Nephrotic Criteria:<30 mg/g is considered normal to mildly zcinemsws68-132 mg/g is considered moderately increased>300 mg/g is considered severely increasedKDIGO. (2013). KDIGO 2012 Clinical Practice Guideline for the Evaluation and Management of Chronic Kidney Disease. Official Journal of the International Society of Nephrology, 3(1), 1-150. Performed By: #### U ACR ####[facility] [id number] [place] [address] [place] Creatinine (U) [Mass/Vol] 73.8 mg/dL Normal 20.0-300.0 [facility] Comment on above: Order Comment: Speci men Type: URINE SPECIMENOrdering Facility: [facility] Address: [address] [place] [address] Performed By: #### U ACR ####[facility] [id number] [place] [address] [place] CNOVon 04-17-2023 CNOV Normal [facility] Amylase SerPl-cCncon 023 Amylase [Catalytic activity/Vol] 43 U/L Normal 30-104 [facility] Comment on above: Order Comment: Speci men Type: BLOOD SPECIMENOrdering Facility: [facility] Address: [address] [place] [address] Performed By: #### 1 798-8, 87184-5, 3040-3, 96566-3, 2777-1 ####[facility] [id number] [place] [address] [place] BCR/ABL1 P210 %IS PANELon BCR/ABL1 P210 %IS 0.3411 Normal [facility] Comment on above: Order Comment: Speci men Type: BLOOD SPECIMENOrdering Facility: [facility] Address: [address] [place] [address] Performed By: #### P 210P ####[facility] LIMSCLIA [id number] [place] [address] [place]#### 210ISBP ####[facility] LABCLIA [id number] [address] [place] BCR/ABL1 P210 MR 2.47 Normal [facility] Comment on above: Order Comment: Speci men Type: BLOOD SPECIMENOrdering Facility: [facility] Address: [address] [place] [address] Performed By: #### P 210P ####[facility] LIMSCLIA [id number] [address] [place]#### 210ISBP ####[facility] LABCLIA [id number] [address] [place] BCR/ABL1 P210 QUANTITATIVE P CR BLOODon 04-16-2023 BCR/ABL1 P210 INTERPRETATION Normal [facility] Comment on above: Order Comment: Speci men Type: BLOOD SPECIMENOrdering Facility: [facility] Address: [address] [place] [address] Result Comment: BCR/ ABL1 p210 Quantitative PCRLaboratory Accession Number: [id number]:DETECTEDMR: 2.47%IS: 0.3411Interpretation:p210 BCR/ABL1 transcripts were detected. Quantitative results areexpressed on the International Scale (IS) and a log molecular response(MR) is calculated. On this scale, a value of less than or equal to0.1% corresponds to a major molecular response (MMR or MR3.0).Methodology:The [employer] QuantideX BCR/ABL IS assay is an FDA-cleared in vitrodiagnostic test for the quantitation of BCR/ABL1 and ABL1 transcriptsin total RNA from whole blood of diagnosed t(9;22) positive chronicmyeloid leukemia patients expressing e13a2 and/or e14a2 fusiontranscripts. This test does not detect p190 (e1a2) or other rareBCR/ABL1 transcripts. This assay has a limit of quantification andlimit of detection of 0.002% IS or MR4.7.References:1) Janet et al, Blood 2006;108:28-37; Janes et al, Pdxdndlf3552;29:999-1003As reviewed by Lina Langford, PhD, [facility] Performed By: #### P 210P ####[facility] LIMSCLIA [id number] [address] [place]#### 210ISBP ####[facility] LABIA [id number] [place] [address] [place] Bilirub Conj SerPl-mCncon Bilirubin.conjugat ed [Mass/Vol] mg/dL Normal <0.2 [facility] Comment on above: Order Comment: Speci men Type: BLOOD SPECIMENOrdering Facility: [facility] Address: [address] [place] [address] Performed By: #### 1 798-8, 74341-1, 3040-3, 35166-0, 2777-1 ####[facility] [id number] [place] [address] [place] CBC W Auto Differential pane l (Bld)on 04-16-2023 Basophils (Bld) [#/Vol] 0.10 10*3/uL Normal <0.11 [facility] Comment on above: Order Comment: Speci men Type: BLOOD SPECIMENOrdering Facility: [facility] Address: [address] [place] [address] Performed By: #### 5 7021-8 ####[facility] [id number] [address] [place] Basophils/100 WBC (Bld) 0.8 % Normal [facility] Comment on above: Order Comment: Speci men Type: BLOOD SPECIMENOrdering Facility: [facility] Address: [address] [place] [address] Performed By: #### 5 7021-8 ####[facility] [id number] [place] [address] [place] Differential cell count method Nom (Bld) Auto Normal [facility] Comment on above: Order Comment: Speci men Type: BLOOD SPECIMENOrdering Facility: [facility] Address: [address] [place] [address] Performed By: #### 5 7021-8 ####[facility] [id number] [place] [address] [place] Eosinophils (Bld) [#/Vol] 0.54 10*3/uL High <0.46 [facility] Comment on above: Order Comment: Speci men Type: BLOOD SPECIMENOrdering Facility: [facility] Address: [address] [place] [address] Performed By: #### 5 7021-8 ####[facility] [id number] [place] [address] [place] Eosinophils/100 WBC (Bld) 4.5 % Normal [facility] Comment on above: Order Comment: Speci men Type: BLOOD SPECIMENOrdering Facility: [facility] Address: [address] [place] [address] Performed By: #### 5 7021-8 ####[facility] [place] [id number] [place] [address] [place] Erythrocyte distribution width (RBC) [Ratio] 14.3 % Normal 11.5-15.0 [facility] Comment on above: Order Comment: Speci men Type: BLOOD SPECIMENOrdering Facility: [facility] Address: [address] [place] [address] Performed By: #### 5 7021-8 ####[facility] [id number] [place] [address] [place] Hematocrit (Bld) [Volume fraction] 50.5 % Normal 39.0-51.0 [facility] Comment on above: Order Comment: Speci men Type: BLOOD SPECIMENOrdering Facility: [facility] Address: [address] [place] [address] Performed By: #### 5 7021-8 ####[facility] [id number] [place] [address] [place] Hemoglobin (Bld) [Mass/Vol] 16.9 g/dL Normal 13.0-17.0 [facility] Comment on above: Order Comment: Speci men Type: BLOOD SPECIMENOrdering Facility: [facility] Address: [address] [place] [address] Performed By: #### 5 7021-8 ####[facility] [place] [id number] [place] [address] [place] Immature granulocytes (Bld) [#/Vol] 0.08 10*3/uL Normal <0.10 [facility] Comment on above: Order Comment: Speci men Type: BLOOD SPECIMENOrdering Facility: [facility] Address: [address] [place] [address] Performed By: #### 5 7021-8 ####[facility] [id number] [place] [address] [place] Immature granulocytes/100 WBC (Bld) 0.7 % Normal [facility] Comment on above: Order Comment: Speci men Type: BLOOD SPECIMENOrdering Facility: [facility] Address: [address] [place] [address] Performed By: #### 5 7021-8 ####[facility] [place] [id number] [place] [address] [place] Lymphocytes (Bld) [#/Vol] 2.46 10*3/uL Normal 1.00-4.00 [facility] Comment on above: Order Comment: Speci men Type: BLOOD SPECIMENOrdering Facility: [facility] Address: [address] [place] [address] Performed By: #### 5 7021-8 ####[facility] [id number] [place] [address] [place] Lymphocytes/100 WBC (Bld) 20.6 % Normal [facility] Comment on above: Order Comment: Speci men Type: BLOOD SPECIMENOrdering Facility: [facility] Address: [address] [place] [address] Performed By: #### 5 7021-8 ####[facility] [id number] [place] [address] [place] MCH (RBC) [Entitic mass] 26.5 pg Normal 26.0-34.0 [facility] Comment on above: Order Comment: Speci men Type: BLOOD SPECIMENOrdering Facility: [facility] Address: [address] [place] [address] Performed By: #### 5 7021-8 ####[facility] [place] [id number] [place] [address] [place] MCHC (RBC) [Mass/Vol] 33.5 g/dL Normal 30.5-36.0 [facility] Comment on above: Order Comment: Speci men Type: BLOOD SPECIMENOrdering Facility: [facility] Address: [address] [place] [address] Performed By: #### 5 7021-8 ####[facility] [id number] [place] [address] [place] MCV (RBC) [Entitic vol] 79.2 fL Low 80.0-100.0 [facility] Comment on above: Order Comment: Speci men Type: BLOOD SPECIMENOrdering Facility: [facility] Address: [address] [place] [address] Performed By: #### 5 7021-8 ####[facility] [id number] [place] [address] [place] Monocytes (Bld) [#/Vol] 0.71 10*3/uL Normal <0.87 [facility] Comment on above: Order Comment: Speci men Type: BLOOD SPECIMENOrdering Facility: [facility] Address: [address] [place] [address] Performed By: #### 5 7021-8 ####[facility] [id number] [place] [address] [place] Monocytes/100 WBC (Bld) 5.9 % Normal [facility] Comment on above: Order Comment: Speci men Type: BLOOD SPECIMENOrdering Facility: [facility] Address: [address] [place] [address] Performed By: #### 5 7021-8 ####[facility] [id number] [place] [address] [place] Neutrophils (Bld) [#/Vol] 8.06 10*3/uL High 1.45-7.50 [facility] Comment on above: Order Comment: Speci men Type: BLOOD SPECIMENOrdering Facility: [facility] Address: [address] [place] [address] Performed By: #### 5 7021-8 ####[facility] [id number] [place] [address] [place] Neutrophils/100 WBC (Bld) 67.5 % Normal [facility] Comment on above: Order Comment: Speci men Type: BLOOD SPECIMENOrdering Facility: [facility] Address: [address] [place] [address] Performed By: #### 5 7021-8 ####[facility] [id number] [place] [address] [place] Nucleated RBC (Bld) [#/Vol] 10*3/uL Normal <0.01 [facility] Comment on above: Order Comment: Speci men Type: BLOOD SPECIMENOrdering Facility: [facility] Address: [address] [place] [address] Performed By: #### 5 7021-8 ####[facility] [id number] [place] [address] [place] Nucleated RBC/100 WBC (Bld) [Ratio] 0.0 /100 WBC Normal [facility] Comment on above: Order Comment: Speci men Type: BLOOD SPECIMENOrdering Facility: [facility] Address: [address] [place] [address] Performed By: #### 5 7021-8 ####[facility] [id number] [place] [address] [place] Platelet mean volume (Bld) [Entitic vol] 9.8 fL Normal 9.0-12.7 [facility] Comment on above: Order Comment: Speci men Type: BLOOD SPECIMENOrdering Facility: [facility] Address: [address] [place] [address] Performed By: #### 5 7021-8 ####[facility] [place] [id number] [place] [address] [place] Platelets (Bld) [#/Vol] 297 10*3/uL Normal 150-400 [facility] Comment on above: Order Comment: Speci men Type: BLOOD SPECIMENOrdering Facility: [facility] Address: [address] [place] [address] Performed By: #### 5 7021-8 ####[facility] [id number] [place] [address] [place] RBC (Bld) [#/Vol] 6.38 10*6/uL High 4.20-6.00 [facility] Comment on above: Order Comment: Speci men Type: BLOOD SPECIMENOrdering Facility: [facility] Address: [address] [place] [address] Performed By: #### 5 7021-8 ####[facility] [id number] [id number] [address] [place] WBC (Bld) [#/Vol] 11.95 10*3/uL High 3.70-11.00 [facility] Comment on above: Order Comment: Speci men Type: BLOOD SPECIMENOrdering Facility: [facility] Address: [address] [place] [address] Performed By: #### 5 7021-8 ####[facility] [id number] [address] [place] CK SerPl-cCncon 04-16-2023 CK [Catalytic activity/Vol] 75 U/L Normal 51-298 [facility] Comment on above: Order Comment: Speci men Type: BLOOD SPECIMENOrdering Facility: [facility] Address: [address] [place] [address] Performed By: #### 2 157-6, HSTNT ####[place] [id number] [address] OF [facility] CNNURSEon 04-16-2023 CNNURSE Normal [facility] CNOVon 04-16-2023 CNOV Normal [facility] CNOVSPon 04-16-2023 CNOVSP Normal [facility] Cholest SerPl-mCncon 023 Cholesterol [Mass/Vol] 282 mg/dL High <200 [facility] Comment on above: Order Comment: Speci men Type: BLOOD SPECIMENOrdering Facility: [facility] Address: [address] [place] [address] Result Comment: <200 mg/dL, Desirable 200-239 mg/dL, Borderline high>239 mg/dL, HighReference:1. National Cholesterol Education Program ATP III Guideline At-A-Glance Quick Desk Reference: National Heart, Lung, and Blood [place]. National Institutes of Health. 2001: NIH Publication No. 01-3305. Performed By: #### 2 093-3 ####[facility] [id number] [address] OF [facility] Comprehensive metabolic 2000 panelon 04-16-2023 Albumin [Mass/Vol] 4.3 g/dL Normal 3.9-4.9 [facility] Comment on above: Order Comment: Speci men Type: BLOOD SPECIMENOrdering Facility: [facility] Address: [address] [place] [address] Performed By: #### 2 4323-8, 2571-8, 3084-1 ####[facility] [id number] [place] [address] [place] ALP [Catalytic activity/Vol] 237 U/L High 38-113 [facility] Comment on above: Order Comment: Speci men Type: BLOOD SPECIMENOrdering Facility: [facility] Address: [address] [place] [address] Performed By: #### 2 4323-8, 2570-8, 3083-1 ####[facility] [id number] [place] [address] [place] ALT [Catalytic activity/Vol] 71 U/L High 10-54 [facility] Comment on above: Order Comment: Speci men Type: BLOOD SPECIMENOrdering Facility: [facility] Address: [address] [place] [address] Performed By: #### 2 4323-8, 2570-8, 3083-1 ####[facility] [place] [id number] [place] [address] [place] Anion gap [Moles/Vol] 10 mmol/L Normal 9-18 [facility] Comment on above: Order Comment: Speci men Type: BLOOD SPECIMENOrdering Facility: [facility] Address: [address] [place] [address] Performed By: #### 2 4323-8, 257-8, 3084-1 ####[facility] [id number] [place] [address] [place] AST [Catalytic activity/Vol] 42 U/L High 14-40 [facility] Comment on above: Order Comment: Speci men Type: BLOOD SPECIMENOrdering Facility: [facility] Address: [address] [place] [address] Performed By: #### 2 4323-8, 257-8, 3083-1 ####[facility] [id number] [place] [address] [place] Bilirubin [Mass/Vol] 0.5 mg/dL Normal 0.2-1.3 [facility] Comment on above: Order Comment: Speci men Type: BLOOD SPECIMENOrdering Facility: [facility] Address: [address] [place] [address] Performed By: #### 2 4323-8, 257-8, 3083- ####[facility] [id number] [place] [address] [place] Calcium [Mass/Vol] 9.9 mg/dL Normal 8.5-10.2 [facility] Comment on above: Order Comment: Speci men Type: BLOOD SPECIMENOrdering Facility: [facility] Address: [address] [place] [address] Performed By: #### 2 4323-8, 257-8, 3083- ####[facility] [id number] [place] [address] [place] Chloride [Moles/Vol] 99 mmol/L Normal 97-105 [facility] Comment on above: Order Comment: Speci men Type: BLOOD SPECIMENOrdering Facility: [facility] Address: [address] [place] [address] Performed By: #### 2 4323-8, 257-8, 3083-1 ####[facility] [id number] [place] [address] [place] CO2 [Moles/Vol] 27 mmol/L Normal 22-30 [facility] Comment on above: Order Comment: Speci men Type: BLOOD SPECIMENOrdering Facility: [facility] Address: [address] [place] [address] Performed By: #### 2 4323-8, 2571-8, 3084-1 ####[facility] [id number] [place] [address] [place] Creatinine [Mass/Vol] 0.65 mg/dL Low 0.73-1.22 [facility] Comment on above: Order Comment: Rosa gaspar Type: BLOOD SPECIMENOrdering Facility: [facility] Address: [address] [place] [address] Performed By: #### 2 4323-8, 2571-8, 4-1 ####[facility] [id number] [address] [place] Creatinine and Glomerular filtration rate.predicted panel (S/P/Bld) 112 mL/min/1.73m??? Normal >=60 [facility] Comment on above: Order Comment: Rosa gaspar Type: BLOOD SPECIMENOrdering Facility: [facility] Address: [address] [place] [address] Result Comment: Najma mated Glomerular Filtration Rate (eGFR) is calculated using the 2020 CKD-EPI creatinine equation. This equation utilizes serum creatinine, sex, and age as parameters. The creatinine assay has traceable calibration to isotope dilution-mass spectrometry. Refer to KDIGO guidelines for clinical interpretation. In patients with unstable renal function, e.g. those with acute kidney injury, the eGFR may not accurately reflect actual GFR. Performed By: #### 2 4323-8, 257-8, 3083- ####[facility] [id number] [place] [address] [place] Glucose [Mass/Vol] 166 mg/dL High 74-99 [facility] Comment on above: Order Comment: Rosa gaspar Type: BLOOD SPECIMENOrdering Facility: [facility] Address: [address] [place] [address] Result Comment: The [place] [employer] (ADA) provides guidance for cutoff values for fasting glucose and random glucose. The ADA defines fasting as no caloric intake for at least 8 hours. Fasting plasma glucose results between 100 to 125 mg/dL indicate increased risk for diabetes (prediabetes).Fasting plasma glucose results greater than or equal to 126 mg/dL meet the criteria for diagnosis of diabetes. In the absence of unequivocal hyperglycemia, results should be confirmed by repeat testing. In a patient with classic symptoms of hyperglycemia or hyperglycemic crisis, random plasma glucose results greater than or equal to 200 mg/dL meet the criteria for diagnosis of diabetes.Reference: Standards of Medical Care in Diabetes 2016, [place] [employer]. Diabetes Care. 2016.39(Suppl 1). Performed By: #### 2 4323-8, 2570-8, 3083- ####[facility] [id number] [place] [address] [place] Potassium [Moles/Vol] 4.5 mmol/L Normal 3.7-5.1 [facility] Comment on above: Order Comment: Speci men Type: BLOOD SPECIMENOrdering Facility: [facility] Address: [address] [place] [address] Performed By: #### 2 4323-8, 2571-01, 3083-06 ####[facility] [place] [id number] [place] [address] [place] Protein [Mass/Vol] 9.0 g/dL High 6.3-8.0 [facility] Comment on above: Order Comment: Speci men Type: BLOOD SPECIMENOrdering Facility: [facility] Address: [address] [place] [address] Performed By: #### 2 4323-8, 8, 3083-06 ####[facility] [id number] [place] [address] [place] Sodium [Moles/Vol] 136 mmol/L Normal 136-144 [facility] Comment on above: Order Comment: Speci men Type: BLOOD SPECIMENOrdering Facility: [facility] Address: [address] [place] [address] Performed By: #### 2 4323-8, 8, 3083-1 ####[facility] [place] [id number] [place] [address] [place] Urea nitrogen [Mass/Vol] 9 mg/dL Normal 9-24 [facility] Comment on above: Order Comment: Speci men Type: BLOOD SPECIMENOrdering Facility: [facility] Address: [address] [place] [address] Performed By: #### 2 4323-8, 2571-8, 3084-1 ####[facility] [id number] [place] [address] [place] [id number] 04-16-2023 ECG01 Normal [facility] ECG01 Normal [facility] ECG01 Normal [facility] ECHOon 04-16-2023 [facility] HIGH SENSITIVITY TROPONIN To n 04-16-2023 Troponin T.cardiac High sensitivity method [Mass/Vol] 28 ng/L High <12 [facility] Comment on above: Order Comment: Speci men Type: BLOOD SPECIMENOrdering Facility: [facility] Address: [address] [place] [address] Result Comment: When assessing risk for acute coronary syndromes: In patients undergoing blood draw greater than or equal to 2 hours from symptom onset, with history of very low to moderate risk and non-ischemic ECG, an initial hs-Troponin T less than 12 ng/L AND a 1 hour delta hs-Troponin T less than 3 ng/L should be considered very low risk for 30 day MACE. Performed By: #### 2 157-6, HSTNT ####[facility] [id number] [place] [address] [place] Lipase SerPl-cCncon 04-16-20 23 Lipase [Catalytic activity/Vol] 35 U/L Normal 16-61 [facility] Comment on above: Order Comment: Speci men Type: BLOOD SPECIMENOrdering Facility: [facility] Address: [address] [place] [address] Performed By: #### 1 798-8, 29435-3, 3040-3, 40913-3, 2777-1 ####[facility] [id number] [place] [address] [place] Magnesium SerPl-mCncon 04-16 Magnesium [Mass/Vol] 2.1 mg/dL Normal 1.7-2.3 [facility] Comment on above: Order Comment: Rosa gaspar Type: BLOOD SPECIMENOrdering Facility: [facility] Address: [address] [place] [address] Performed By: #### 1 798-8, 50198-0, 3040-3, 51348-6, 2777-1 ####[facility] [id number] [place] [address] [place] PT panel Coag (PPP)on 2022 INR Coag (PPP) [Relative time] 1.0 {INR} Normal 0.9-1.3 [facility] Comment on above: Order Comment: Rosa gaspar Type: BLOOD SPECIMENOrdering Facility: [facility] Address: [address] [place] [address] Result Comment: Nyla min K Antagonist (VKA) Therapeutic Range: INR 2 to 3 (Target INR of 2.5)Note: For patients treated with VKA drugs, such as warfarin, the [place] [employer] 2012 Guideline recommends a therapeutic INR range of 2 to 3 (target INR of 2.5). This recommendation includes high-risk patients with antiphospholipid syndrome with previous arterial or venous thromboembolism, current-generation mechanical or bioprosthetic aortic heart valve replacement.Note: Patients with mechanical aortic valve replacement and additional risk factors for thromboembolic events (atrial fibrillation, previous thromboembolism, LV dysfunction, hypercoagulable conditions) or an older generation mechanical AVR (i.e., ball in-Cage) or any mechanical MVR should have a INR therapeutic range of 2.5 to 3.5 (target INR of 3).Coby GH, et al. Chest 2012, 141:7S-47SSurinder RA, et al. [facility] 2017, 70: 252-289 Performed By: #### 3 4528-0, 03393-2 ####[facility] [id number] [place] [address] [place] PT Coag (PPP) [Time] 10.9 s Normal 9.7-13.0 [facility] Comment on above: Order Comment: Speci men Type: BLOOD SPECIMENOrdering Facility: [facility] Address: [address] [place] [address] Performed By: #### 3 4528-0, 32998-5 ####[facility] [id number] [place] [address] [place] Phosphate SerPl-mCncon 04-16 Phosphate [Mass/Vol] 4.0 mg/dL Normal 2.7-4.8 [facility] Comment on above: Order Comment: Speci men Type: BLOOD SPECIMENOrdering Facility: [facility] Address: [address] [place] [address] Performed By: #### 1 798-8, 46917-1, 3040-3, 66594-1, 2777-1 ####[facility] [id number] [address] [place] Trigl SerPl-mCncon Triglyceride [Mass/Vol] 165 mg/dL High <150 [facility] Comment on above: Order Comment: Speci men Type: BLOOD SPECIMENOrdering Facility: [facility] Address: [address] [place] [address] Result Comment: <150 mg/dL, Normal 150-199 mg/dL, Borderline high 200-499 mg/dL, High>499 mg/dL, Very highReference:1. National Cholesterol Education Program ATP III Guideline At-A-Glance Quick Desk Reference: National Heart, Lung, and Blood [place]. National Institutes of Health. 2001: NIH Publication No. 01-3305. Performed By: #### 2 4323-8, 2571-8, 3084-1 ####[facility] [id number] [place] [address] [place] Triglyceride [Mass/Vol]on FASTING TIME 12 hrs Normal [facility] Comment on above: Order Comment: Speci men Type: BLOOD SPECIMENOrdering Facility: [facility] Address: [address] [place] [address] Performed By: #### 2 4323-8, 2571-8, 3084-1 ####[facility] [id number] [place] [address] [place] URINALYSIS, DIPSTICK ONLYon 04-16-2023 Bilirubin Ql (U) Negative Normal Negative [facility] Comment on above: Order Comment: Speci men Type: URINE SPECIMENOrdering Facility: [facility] Address: [address] [place] [address] Performed By: #### U A ####[facility] [id number] [place] [address] [place] Clarity (Unsp spec) Clear Normal Clear [facility] Comment on above: Order Comment: Speci men Type: URINE SPECIMENOrdering Facility: [facility] Address: [address] [place] [address] Performed By: #### U A ####[facility] [id number] [address] [place] Color (U) Yellow Normal Yellow [facility] Comment on above: Order Comment: Speci men Type: URINE SPECIMENOrdering Facility: [facility] Address: [address] [place] [address] Performed By: #### U A ####[facility] [id number] [place] [address] [place] Glucose Test strip (U) [Mass/Vol] Negative Normal Negative [facility] Comment on above: Order Comment: Speci men Type: URINE SPECIMENOrdering Facility: [facility] Address: [address] [place] [address] Performed By: #### U A ####[facility] [id number] [place] [address] [place] Hemoglobin Ql (U) Negative Normal Negative [facility] Comment on above: Order Comment: Speci men Type: URINE SPECIMENOrdering Facility: [facility] Address: [address] [place] [address] Performed By: #### U A ####[facility] [id number] [place] [address] [place] Ketones Ql (U) Negative Normal Negative [facility] Comment on above: Order Comment: Speci men Type: URINE SPECIMENOrdering Facility: [facility] Address: [address] [place] [address] Performed By: #### U A ####[facility] [id number] [place] [address] [place] Leukocyte esterase Test strip Ql (U) Negative Normal Negative [facility] Comment on above: Order Comment: Speci men Type: URINE SPECIMENOrdering Facility: [facility] Address: [address] [place] [address] Performed By: #### U A ####[facility] [id number] [place] [address] [place] Nitrite Ql (U) Negative Normal Negative [facility] Comment on above: Order Comment: Speci men Type: URINE SPECIMENOrdering Facility: [facility] Address: [address] [place] [address] Performed By: #### U A ####[facility] [id number] [place] [address] [place] pH (U) 6.5 [pH] Normal <8.5 [facility] Comment on above: Order Comment: Speci men Type: URINE SPECIMENOrdering Facility: [facility] Address: [address] [place] [address] Performed By: #### U A ####[facility] [id number] [place] [address] [place] Protein (U) [Mass/Vol] Negative Normal Negative [facility] Comment on above: Order Comment: Speci men Type: URINE SPECIMENOrdering Facility: [facility] Address: [address] [place] [address] Performed By: #### U A ####[facility] [id number] [place] [address] [place] Specific gravity (U) [Rel density] 1.006 Normal 1.005-1.030 [facility] Comment on above: Order Comment: Speci men Type: URINE SPECIMENOrdering Facility: [facility] Address: [address] [place] [address] Performed By: #### U A ####[facility] [id number] [place] [address] [place] Urobilinogen Ql (U) 0.2 EU/dL Normal 0.2-1.0 EU/dL [facility] Comment on above: Order Comment: Speci men Type: URINE SPECIMENOrdering Facility: [facility] Address: [address] [place] [address] Performed By: #### U A ####[facility] [id number] [place] [address] [place] Urate SerPl-mCncon 3 Urate [Mass/Vol] 3.4 mg/dL Low 4.0-8.1 [facility] Comment on above: Order Comment: Speci men Type: BLOOD SPECIMENOrdering Facility: [facility] Address: [address] [place] [address] Performed By: #### 2 4323-8, 2571-8, 3084-1 ####[facility] [id number] [place] [address] [place] aPTT PPPon 04-16-2023 aPTT Coag (PPP) [Time] 25.9 s Normal 23.0-32.4 [facility] Comment on above: Order Comment: Speci men Type: BLOOD SPECIMENOrdering Facility: [facility] Address: [address] [place] [address] Performed By: #### 3 4528-0, 78613-6 ####[facility]CLIA [id number] [facility]ITALTrip RAINEYDESFausto [id number] [place] [address] [place] NURSING PROGon 04-11-2023 NURSING PROG Normal [facility] CNPNon 03-04-2023 CNPN Normal [facility] XR pre/post mri xrayon 02-05 XR pre/[place] [address] MRI Report Signed Patient: Derrell Avitia JR MR#: [id number] : 1970 Acct:[id number] Age/Sex: 52 / M ADM Date: 02/05/23 Loc: [facility] Room: Type: [facility] Attending Dr: Buffy Chung Copies to: ERNESTO Hdz Ordering Provider: ERNESTO Hdz Date of Service: 02/05/23 MR/MR shoulder RT wo con: [id number] ([id number]) XR/XR pre/post mri xray: R SHOULDER PRES MRI right Shoulder without contrast TECHNIQUE: Multiplanar T1 and T2-weighted imaging of the right shoulder obtained without contrast. HISTORY: Fell injuring right shoulder. Limited range of motion. History of acromioclavicular separation COMPARISON: None BONE MARROW EDEMA: None FRACTURE: None AC JOINT: Moderate degeneration SHOULDER ROOF LIGAMENTS: The coracoacromial and coracoclavicular ligaments are intact. ROTATOR CUFF: There is a full-thickness tear of the anterior portion of supraspinatus tendon near the greater tuberosity insertion which is retracted 1 cm. Infraspinatus tendon and teres minor and subscapularis tendons are intact. ROTATOR CUFF INTERVAL: Unremarkable BURSAL FLUID: Moderate fluid GLENOID: Intact BICEPS LABRAL COMPLEX: Intact LONG HEAD OF BICEPS TENDON: Intact GLENOHUMERAL LIGAMENTS: The superior glenohumeral ligament is intact. The middle glenohumeral ligament is intact. The anterior and posterior glenohumeral ligaments are intact. JOINT EFFUSION: Moderate effusion MUSCLES: Normal signal intensity of the muscles. NO SUBCUTANEOUS TISSUES: No subcutaneous abnormalities identified. MR/MR shoulder RT wo con IMPRESSION: Mildly retracted full-thickness tear of the anterior portion of supraspinatus tendon near the greater tuberosity insertion. 2 views right shoulder for pre-MRI assessment Acromioclavicular spurring. No fracture. No dislocation. Unremarkable soft tissues. IMPRESSION: Degenerative change. Impression dictated by: Lonny Agarwal M.D.02/05/2023 1:00 PM Dictation Location: [place] [address] Transcribed By: [facility] 02/05/23 1300 Dictated By: Lonny Agarwal DO 02/05/23 1256 Signed By: 02/05/23 1300 Normal [facility] CNPNon 02-03-2023 CNPN Normal [facility] Amylase SerPl-cCncon 023 Amylase [Catalytic activity/Vol] 39 U/L Normal 30-104 [facility] Comment on above: Order Comment: Speci men Type: BLOOD SPECIMENOrdering Facility: [facility] Address: [address] [place] [address] Performed By: #### 1 798-8, 31323-6, 3040-3, 16192-3, 2777-1 ####[facility] [id number] [place] [address] [place] BCR/ABL1 P190 QUANTITATIVE P CR BLOODon 01-22-2023 BCR/ABL1 P190 INTERPRETATION Normal [facility] Comment on above: Order Comment: Speci men Type: BLOOD SPECIMENOrdering Facility: [facility] Address: [address] [place] [address] Result Comment: BCR/ ABL1 p190 Quantitative PCRLaboratory Accession Number: [id number]:UNDETECTEDNCN: N/AInterpretation:p190 BCR/ABL1 transcripts were not detected. This result does notexclude the possibility of very low level transcripts below the limitof detection of this assay (>MR4.6), and a result of not detected does not exclude the presence of other BCR/ABL1 transcripts nottargeted by this assay. Clinical correlation is suggested.Methodology:RNA was extracted from this sample, and cDNA prepared by reversetranscription. Real time PCR was performed using primers for l8p2HZD/ABL1 fusion transcripts and ABL1 transcripts (qPCR BCR/ABL minor,[employer], [place], [place]). This test does not detect p210 (e13a2 or e14a2)or other rare BCR/ABL1 transcripts. This assay has a limit ofquantification of 0.0036% (LR4.4) and limit of detection of 0.0025%(LR4.6).Disclaimer:This test was developed and its performance characteristics determinedby [facility]'s [facility] LaboratoryMed[facility] [place] ([facility]). It has not been cleared or approved bythe FDA. [facility] is regulated under CLIA as certified to perform high-complexity testing. This test is used for clinical purposes. It shouldnot be regarded as investigational or for research.Testing [place] [address]. CLIA Number: [id number] reviewed by Chaparro Orellana MD Performed By: #### P 210P, P190P ####[facility] ILLUMINA LIMSCLIA [id number] [address] [place]#### 210ISBP, 190NCBP ####[facility] LABCLIA [id number] [address] OF [facility] BCR/ABL1 G223POM BLOOD( AND BCR/ABL1:ABL1)on 01-22-2023 BCR/ABL1 P190 NCN(%BCR/ABL1:ABL1 ) N/A Normal [facility] Comment on above: Order Comment: Speci men Type: BLOOD SPECIMENOrdering Facility: [facility] Address: [address] [place] [address] Performed By: #### P 210P, P190P ####CLARITY EagerPanda LIMSCLIA [id number] [address]#### 210ISBP, 190NCBP ####[facility] LABCLIA [id number] [address] [place] BCR/ABL1 P210 %IS PANELon BCR/ABL1 P210 %IS 0.7883 Normal [facility] Comment on above: Order Comment: Speci men Type: BLOOD SPECIMENOrdering Facility: [facility] Address: [address] [place] [address] Performed By: #### P 210P, P190P ####[facility] ILLUMINA LIMSCLIA [id number] [place] [address] [place]#### 210ISBP, 190NCBP ####[facility] LABCLIA [id number] [address] OF [place] BCR/ABL1 P210 MR 2.1 Normal [facility] Comment on above: Order Comment: Speci men Type: BLOOD SPECIMENOrdering Facility: [facility] Address: [address] [place] [address] Performed By: #### P 210P, P190P ####CLAR[facility] ILLUMINA LIMSCLIA [id number] [place] [address] [place]#### 210ISBP, 190NCBP ####[facility] LABCLIA [id number] [address] [place] BCR/ABL1 P210 QUANTITATIVE P CR BLOODon 01-22-2023 BCR/ABL1 P210 INTERPRETATION Normal [facility] Comment on above: Order Comment: Speci men Type: BLOOD SPECIMENOrdering Facility: [facility] Address: [address] [place] [address] Result Comment: BCR/ ABL1 p210 Quantitative PCRLaboratory Accession Number: [id number]:DETECTEDMR: 2.1%IS: 0.7883Interpretation:p210 BCR/ABL1 transcripts were detected. Quantitative results areexpressed on the International Scale (IS) and a log molecular response(MR) is calculated. On this scale, a value of less than or equal to0.1% corresponds to a major molecular response (MMR or MR3.0).Methodology:The [employer] Quantide[employer] BCR/ABL IS assay is an FDA-cleared in vitrodiagnostic test for the quantitation of BCR/ABL1 and ABL1 transcriptsin total RNA from whole blood of diagnosed t(9;22) positive chronicmyeloid leukemia patients expressing e13a2 and/or e14a2 fusiontranscripts. This test does not detect p190 (e1a2) or other rareBCR/ABL1 transcripts. This assay has a limit of quantification andlimit of detection of 0.002% IS or MR4.7.References:1) Gonzales et al, Blood 2006;108:28-37; Janes et al, Crmjeomc4793;29:999-1003As reviewed by Chaparro Orellana MD Performed By: #### P 210P, P190P ####[facility] ILLUMINA LIMSCLIA [id number] [address] STATES OF [facility]#### 210ISBP, 190NCBP ####[facility] LABIA [id number] [address] [place] Bilirub Conj SerPl-mCncon Bilirubin.conjugat ed [Mass/Vol] mg/dL Normal <0.2 [facility] Comment on above: Order Comment: Speci men Type: BLOOD SPECIMENOrdering Facility: [facility] Address: [address] [place] [address] Performed By: #### 1 798-8, 27425-6, 3040-3, 65568-5, 2777-1 ####[facility] [id number] [address] STATES [facility] CBC W Auto Differential pane l (Bld)on 01-22-2023 Basophils (Bld) [#/Vol] 0.08 10*3/uL Normal <0.11 [facility] Comment on above: Order Comment: Speci men Type: BLOOD SPECIMENOrdering Facility: [facility] Address: [address] [address] Performed By: #### 5 7021-8 ####[facility] [id number] [place] [address] Basophils/100 WBC (Bld) 0.8 % Normal [facility] Comment on above: Order Comment: Speci men Type: BLOOD SPECIMENOrdering Facility: [facility] Address: [address] [place] [address] Performed By: #### 5 7021-8 ####[facility] [place] [id number] [place] [address] Differential cell count method Nom (Bld) Auto Normal [facility] Comment on above: Order Comment: Speci men Type: BLOOD SPECIMENOrdering Facility: [facility] Address: [address] [place] [address] Performed By: #### 5 7021-8 ####[facility] [id number] [place] [address] [place] Eosinophils (Bld) [#/Vol] 0.55 10*3/uL High <0.46 [facility] Comment on above: Order Comment: Speci men Type: BLOOD SPECIMENOrdering Facility: [facility] Address: [address] [place], [place] [address] Performed By: #### 5 7021-8 ####[facility] [id number] [place] [address] STATES [facility] Eosinophils/100 WBC (Bld) 5.6 % Normal [facility] Comment on above: Order Comment: Speci men Type: BLOOD SPECIMENOrdering Facility: [facility] Address: [address] [place], [place] [address] Performed By: #### 5 7021-8 ####[facility] [id number] [address] [id number] [address] [place] Erythrocyte distribution width (RBC) [Ratio] 14.1 % Normal 11.5-15.0 [facility] Comment on above: Order Comment: Speci men Type: BLOOD SPECIMENOrdering Facility: [facility] Address: [address] [place] [address] Performed By: #### 5 7021-8 ####[facility] [id number] [address] OF [place] Hematocrit (Bld) [Volume fraction] 45.4 % Normal 39.0-51.0 [facility] Comment on above: Order Comment: Speci men Type: BLOOD SPECIMENOrdering Facility: [facility] Address: [address] [place] [address] Performed By: #### 5 7021-8 ####[facility] [id number] [place] [address] [place] Hemoglobin (Bld) [Mass/Vol] 15.1 g/dL Normal 13.0-17.0 [facility] Comment on above: Order Comment: Speci men Type: BLOOD SPECIMENOrdering Facility: [facility] Address: [address] [place] [address] Performed By: #### 5 7021-8 ####[facility] [id number] [address] [place] Immature granulocytes (Bld) [#/Vol] 0.07 10*3/uL Normal <0.10 [facility] Comment on above: Order Comment: Speci men Type: BLOOD SPECIMENOrdering Facility: [facility] Address: [address] [place], [place] [address] Performed By: #### 5 7021-8 ####[facility] [id number] [place] [address] [place] Immature granulocytes/100 WBC (Bld) 0.7 % Normal [facility] Comment on above: Order Comment: Speci men Type: BLOOD SPECIMENOrdering Facility: [facility] Address: [address] [address] Performed By: #### 5 7021-8 ####[facility] [place] [id number] [place] [address] Lymphocytes (Bld) [#/Vol] 2.44 10*3/uL Normal 1.00-4.00 [facility] Comment on above: Order Comment: Speci men Type: BLOOD SPECIMENOrdering Facility: [facility] Address: [address] [address] Performed By: #### 5 7021-8 ####[facility] [id number] [place] [address] Lymphocytes/100 WBC (Bld) 24.7 % Normal [facility] Comment on above: Order Comment: Speci men Type: BLOOD SPECIMENOrdering Facility: [facility] Address: [address] [place] [address] Performed By: #### 5 7021-8 ####[facility] [id number] [place] [address] [place] MCH (RBC) [Entitic mass] 26.7 pg Normal 26.0-34.0 [facility] Comment on above: Order Comment: Speci men Type: BLOOD SPECIMENOrdering Facility: [facility] Address: [address] [place], [place] [address] Performed By: #### 5 7021-8 ####[facility] [id number] [address] [place] MCHC (RBC) [Mass/Vol] 33.3 g/dL Normal 30.5-36.0 [facility] Comment on above: Order Comment: Speci men Type: BLOOD SPECIMENOrdering Facility: [facility] Address: [address] [place] [address] Performed By: #### 5 7021-8 ####[facility] [place] [id number] [place] [address] [place] MCV (RBC) [Entitic vol] 80.4 fL Normal 80.0-100.0 [facility] Comment on above: Order Comment: Speci men Type: BLOOD SPECIMENOrdering Facility: [facility] Address: [address] [place] [address] Performed By: #### 5 7021-8 ####[facility] [id number] [place] [address] [place] Monocytes (Bld) [#/Vol] 0.60 10*3/uL Normal <0.87 [facility] Comment on above: Order Comment: Speci men Type: BLOOD SPECIMENOrdering Facility: [facility] Address: [address] [place] [address] Performed By: #### 5 7021-8 ####[facility] [id number] [place] [address] [place] Monocytes/100 WBC (Bld) 6.1 % Normal [facility] Comment on above: Order Comment: Speci men Type: BLOOD SPECIMENOrdering Facility: [facility] Address: [address] [place] [address] Performed By: #### 5 7021-8 ####[facility] [place] [id number] [place] [address] [place] Neutrophils (Bld) [#/Vol] 6.14 10*3/uL Normal 1.45-7.50 [facility] Comment on above: Order Comment: Speci men Type: BLOOD SPECIMENOrdering Facility: [facility] Address: [address] [place] [address] Performed By: #### 5 7021-8 ####[facility] [id number] [place] [address] [place] Neutrophils/100 WBC (Bld) 62.1 % Normal [facility] Comment on above: Order Comment: Speci men Type: BLOOD SPECIMENOrdering Facility: [facility] Address: [address] Performed By: #### 5 7021-8 ####[facility] [id number] [place] [address] Nucleated RBC (Bld) [#/Vol] 10*3/uL Normal <0.01 [facility] Comment on above: Order Comment: Speci men Type: BLOOD SPECIMENOrdering Facility: [facility] Address: [address] Performed By: #### 5 7021-8 ####[facility] [id number] [place] [address] [place] Nucleated RBC/100 WBC (Bld) [Ratio] 0.0 /100 WBC Normal [facility] Comment on above: Order Comment: Speci men Type: BLOOD SPECIMENOrdering Facility: [facility] Address: [address] Performed By: #### 5 7021-8 ####[facility] [place] [id number] [place] [address] [place] Platelet mean volume (Bld) [Entitic vol] 9.8 fL Normal 9.0-12.7 [facility] Comment on above: Order Comment: Speci men Type: BLOOD SPECIMENOrdering Facility: [facility] Address: [address] [place] [address] Performed By: #### 5 7021-8 ####[facility] [place] [id number] [place] [address] [place] Platelets (Bld) [#/Vol] 286 10*3/uL Normal 150-400 [facility] Comment on above: Order Comment: Speci men Type: BLOOD SPECIMENOrdering Facility: [facility] Address: [address] [place] [address] Performed By: #### 5 7021-8 ####[facility] [id number] [place] [address] [place] RBC (Bld) [#/Vol] 5.65 10*6/uL Normal 4.20-6.00 [facility] Comment on above: Order Comment: Speci men Type: BLOOD SPECIMENOrdering Facility: [facility] Address: [address] [place] [address] Performed By: #### 5 7021-8 ####[facility] [id number] [place] [address] [place] WBC (Bld) [#/Vol] 9.88 10*3/uL Normal 3.70-11.00 [facility] Comment on above: Order Comment: Speci men Type: BLOOD SPECIMENOrdering Facility: [facility] Address: [address] [place] [address] Performed By: #### 5 7021-8 ####[facility] [id number] [place] [address] [place] CK TOTAL AND CK-MBon 023 CK [Catalytic activity/Vol] 72 U/L Normal 51-298 [facility] Comment on above: Order Comment: Speci men Type: BLOOD SPECIMENOrdering Facility: [facility] Address: [address] [place], [place] [address] Performed By: #### C KCKMB, HSTNT ####[facility] LABIA [id number] [place] [address] [place] CK.MB [Mass/Vol] 3.1 ng/mL Normal <7.8 [facility] Comment on above: Order Comment: Speci men Type: BLOOD SPECIMENOrdering Facility: [facility] Address: [address] [place] [address] Performed By: #### C KCKMB, HSTNT ####[facility] LABCLIA [id number] [address] CK.MB [Ratio] Normal [facility] Comment on above: Order Comment: Speci men Type: BLOOD SPECIMENOrdering Facility: [facility] Address: [address] [place] [address] Result Comment: CK M B % not reported with CK <100 U/L. Performed By: #### C KCKMB, HSTNT ####[facility] LABIA [id number] [address] OF [facility] CNNURSEon 01-22-2023 CNNURSE Normal [facility] CNOVSPon 01-22-2023 CNOVSP Normal [facility] Cholest SerPl-mCncon 023 Cholesterol [Mass/Vol] 165 mg/dL Normal <200 [facility] Comment on above: Order Comment: Speci men Type: BLOOD SPECIMENOrdering Facility: [facility] Address: [address] [place] [address] Result Comment: <200 mg/dL, Desirable 200-239 mg/dL, Borderline high>239 mg/dL, HighReference:1. National Cholesterol Education Program ATP III Guideline At-A-Glance Quick Desk Reference: National Heart, Lung, and Blood [place]. National Institutes of Health. 2001: NIH Publication No. 01-3305. Performed By: #### 2 093-3 ####[facility] [id number] [address] Comprehensive metabolic 2000 panelon 01-22-2023 Albumin [Mass/Vol] 4.2 g/dL Normal 3.9-4.9 [facility] Comment on above: Order Comment: Speci men Type: BLOOD SPECIMENOrdering Facility: [facility] Address: [address] [place] [address] Performed By: #### 2 4323-8, 2571-8, 3084-1 ####[facility] [id number] [place] [address] [place] ALP [Catalytic activity/Vol] 186 U/L High 38-113 [facility] Comment on above: Order Comment: Speci men Type: BLOOD SPECIMENOrdering Facility: [facility] Address: [address] [place] [address] Performed By: #### 2 4323-8, 2571-8, 3084-1 ####[facility] [id number] [place] [address] [place] ALT [Catalytic activity/Vol] 38 U/L Normal 10-54 [facility] Comment on above: Order Comment: Speci men Type: BLOOD SPECIMENOrdering Facility: [facility] Address: [address] [place] [address] Performed By: #### 2 4323-8, 2571-8, 3084-1 ####[facility] [id number] [place] [address] [place] Anion gap [Moles/Vol] 8 mmol/L Low 9-18 [facility] Comment on above: Order Comment: Speci men Type: BLOOD SPECIMENOrdering Facility: [facility] Address: [address] [place] [address] Performed By: #### 2 4323-8, 257-8, 3083-1 ####[facility] [place] [id number] [address] [place] AST [Catalytic activity/Vol] 27 U/L Normal 14-40 [facility] Comment on above: Order Comment: Speci men Type: BLOOD SPECIMENOrdering Facility: [facility] Address: [address] [place] [address] Performed By: #### 2 4323-8, 257-8, 3084-1 ####[facility] [id number] [place] [address] [place] Bilirubin [Mass/Vol] 0.3 mg/dL Normal 0.2-1.3 [facility] Comment on above: Order Comment: Speci men Type: BLOOD SPECIMENOrdering Facility: [facility] Address: [address] [place] [address] Performed By: #### 2 4323-8, 2570-8, 3083- ####[facility] [id number] [place] [address] [place] Calcium [Mass/Vol] 9.2 mg/dL Normal 8.5-10.2 [facility] Comment on above: Order Comment: Speci men Type: BLOOD SPECIMENOrdering Facility: [facility] Address: [address] [place] [address] Performed By: #### 2 4323-8, 8, 3083-06 ####[facility] [id number] [place] [address] [place] Chloride [Moles/Vol] 101 mmol/L Normal 97-105 [facility] Comment on above: Order Comment: Speci men Type: BLOOD SPECIMENOrdering Facility: [facility] Address: [address] [place] [address] Performed By: #### 2 4323-8, 8, 3083-06 ####[facility] [place] [id number] [place] [address] [place] CO2 [Moles/Vol] 26 mmol/L Normal 22-30 [facility] Comment on above: Order Comment: Speci men Type: BLOOD SPECIMENOrdering Facility: [facility] Address: [address] [place] [address] Performed By: #### 2 4323-8, 8, 3083-06 ####[facility] [id number] [place] [address] [place] Creatinine [Mass/Vol] 0.62 mg/dL Low 0.73-1.22 [facility] Comment on above: Order Comment: Speci men Type: BLOOD SPECIMENOrdering Facility: [facility] Address: [address] [id number] Performed By: #### 2 4323-8, 2571-8, 3084-1 ####[facility] [place] [facility] [id number] [address] [place] ESTIMATED GLOMERULAR FILTRATION RATE 114 mL/min/1.73m??? Normal >=60 [facility] Comment on above: Order Comment: Rosa gaspar Type: BLOOD SPECIMENOrdering Facility: [facility] Address: [address] [id number] Result Comment: Najma mated Glomerular Filtration Rate (eGFR) is calculated using the 2020 CKD-EPI creatinine equation. This equation utilizes serum creatinine, sex, and age as parameters. The creatinine assay has traceable calibration to isotope dilution-mass spectrometry. Refer to KDIGO guidelines for clinical interpretation. In patients with unstable renal function, e.g. those with acute kidney injury, the eGFR may not accurately reflect actual GFR. Performed By: #### 2 4323-8, 2571-8, 3084-1 ####[facility] AT [facility] [id number] [place] [address] [place] Glucose [Mass/Vol] 192 mg/dL High 74-99 [facility] Comment on above: Order Comment: Rosa hubert Type: BLOOD SPECIMENOrdering Facility: [facility] Address: [address] [place] [address] Result Comment: The [place] [employer] (ADA) provides guidance for cutoff values for fasting glucose and random glucose. The ADA defines fasting as no caloric intake for at least 8 hours. Fasting plasma glucose results between 100 to 125 mg/dL indicate increased risk for diabetes (prediabetes).Fasting plasma glucose results greater than or equal to 126 mg/dL meet the criteria for diagnosis of diabetes. In the absence of unequivocal hyperglycemia, results should be confirmed by repeat testing. In a patient with classic symptoms of hyperglycemia or hyperglycemic crisis, random plasma glucose results greater than or equal to 200 mg/dL meet the criteria for diagnosis of diabetes.Reference: Standards of Medical Care in Diabetes 2016, [place] [employer]. Diabetes Care. 2016.39(Suppl 1). Performed By: #### 2 4323-8, 2571-8, 3084-1 ####[facility] [id number] [place] [address] [place] Potassium [Moles/Vol] 4.5 mmol/L Normal 3.7-5.1 [facility] Comment on above: Order Comment: Speci men Type: BLOOD SPECIMENOrdering Facility: [facility] Address: [address] [address] Performed By: #### 2 4323-8, 2571-8, 3084-1 ####[facility] [place] [id number] [place] [address] [place] Protein [Mass/Vol] 8.2 g/dL High 6.3-8.0 [facility] Comment on above: Order Comment: Speci men Type: BLOOD SPECIMENOrdering Facility: [facility] Address: [address] [address] Performed By: #### 2 4323-8, 257-8, 308-1 ####[facility] [place] [id number] [place] [address] [place] Sodium [Moles/Vol] 135 mmol/L Low 136-144 [facility] Comment on above: Order Comment: Speci men Type: BLOOD SPECIMENOrdering Facility: [facility] Address: [address] Performed By: #### 2 4323-8, 257-8, 308-1 ####[facility] [id number] [place] [address] [place] Urea nitrogen [Mass/Vol] 11 mg/dL Normal 9-24 [facility] Comment on above: Order Comment: Speci men Type: BLOOD SPECIMENOrdering Facility: [facility] Address: [address] [address] Performed By: #### 2 4323-8, 2571-8, 3084-1 ####[facility] [id number] [place] [address] [place] [id number] 01-22-2023 ECG01 Normal [facility] ECG01 Normal [facility] ECG01 Normal [facility] HIGH SENSITIVITY TROPONIN To n 01-22-2023 HIGH SENSITIVITY TRACY 23 ng/L High <12 [facility] Comment on above: Order Comment: Speci men Type: BLOOD SPECIMENOrdering Facility: [facility] Address: [address] [place] [address] Result Comment: When assessing risk for acute coronary syndromes: In patients undergoing blood draw greater than or equal to 2 hours from symptom onset, with history of very low to moderate risk and non-ischemic ECG, an initial hs-Troponin T less than 12 ng/L AND a 1 hour delta hs-Troponin T less than 3 ng/L should be considered very low risk for 30 day MACE. Performed By: #### C KCKMB, HSTNT ####[facility] [id number] [address] [place] HbA1c (Bld)on 01-22-2023 Average glucose Estimated from glycated hemoglobin (Bld) [Mass/Vol] 197 mg/dL Normal [facility] Comment on above: Order Comment: Rosa gaspar Type: BLOOD SPECIMENOrdering Facility: [facility] Address: [address] [place] [address] Result Comment: eAG: (Estimated average glucose) is a calculated value from HgbA1c and is registered representative of the average blood glucose level in the last 2-3 month period. Performed By: #### 5 5454-3 ####[facility] [id number] [place] [address] [place] HbA1c (Bld) [Mass fraction] 8.5 % High 4.3-5.6 [facility] Comment on above: Order Comment: Michaeli men Type: BLOOD SPECIMENOrdering Facility: [facility] Address: [address] [place], [place] [address] Result Comment: Amer ican Diabetes Association guidelines indicate that patients with HgbA1c in the range 5.7-6.4% are at increased risk for development of diabetes, and intervention by lifestyle modification may be beneficial. HgbA1c greater or equal to 6.5% is considered diagnostic of diabetes. Performed By: #### 5 5454-3 ####[facility] [id number] [place] [address] [place] Lipase SerPl-cCncon 01-23-20 Lipase [Catalytic activity/Vol] 30 U/L Normal 16-61 [facility] Comment on above: Order Comment: Speci men Type: BLOOD SPECIMENOrdering Facility: [facility] Address: [address] [place] [address] Performed By: #### 1 798-8, 15505-7, 3040-3, 48766-0, 2776-1 ####[facility] [id number] [place] [address] [place] Magnesium SerPl-mCncon 01-22 Magnesium [Mass/Vol] 2.1 mg/dL Normal 1.7-2.3 [facility] Comment on above: Order Comment: Speci men Type: BLOOD SPECIMENOrdering Facility: [facility] Address: [address] [place] [address] Performed By: #### 1 798-8, 34046-5, 0-3, , 2776- ####[facility] [id number] [place] [address] [place] PT panel Coag (PPP)on 2022 INR Coag (PPP) [Relative time] 1.0 {INR} Normal 0.9-1.3 [facility] Comment on above: Order Comment: Speci men Type: BLOOD SPECIMENOrdering Facility: [facility] Address: [address] [place], [place] [address] Result Comment: Nyla min K Antagonist (VKA) Therapeutic Range: INR 2 to 3 (Target INR of 2.5)Note: For patients treated with VKA drugs, such as warfarin, the [employer] 2012 Guideline recommends a therapeutic INR range of 2 to 3 (target INR of 2.5). This recommendation includes high-risk patients with antiphospholipid syndrome with previous arterial or venous thromboembolism, current-generation mechanical or bioprosthetic aortic heart valve replacement.Note: Patients with mechanical aortic valve replacement and additional risk factors for thromboembolic events (atrial fibrillation, previous thromboembolism, LV dysfunction, hypercoagulable conditions) or an older generation mechanical AVR (i.e., ball in-Cage) or any mechanical MVR should have a INR therapeutic range of 2.5 to 3.5 (target INR of 3).Coby GH, et al. Chest 2012, 141:7S-47SNishelli RA, et al. [facility] 2017, 70: 252-289 Performed By: #### 3 4528-0, 70929-5 ####[facility] [id number] [place] [address] [place] PT Coag (PPP) [Time] 10.2 s Normal 9.7-13.0 [facility] Comment on above: Order Comment: Speci men Type: BLOOD SPECIMENOrdering Facility: [facility] Address: [address] [place] [address] Performed By: #### 3 4528-0, 76665-5 ####[facility] [id number] [place] [address] [place] Phosphate SerPl-mCncon 01-22 Phosphate [Mass/Vol] 3.4 mg/dL Normal 2.7-4.8 [facility] Comment on above: Order Comment: Speci men Type: BLOOD SPECIMENOrdering Facility: [facility] Address: [address] [place] [address] Performed By: #### 1 798-8, 59886-0, 3040-3, 18234-3, 2777-1 ####[facility] [id number] [place] [address] [place] Trigl SerPl-mCncon Triglyceride [Mass/Vol] 180 mg/dL High <150 [facility] Comment on above: Order Comment: Speci men Type: BLOOD SPECIMENOrdering Facility: [facility] Address: [address] [place] [address] Result Comment: <150 mg/dL, Normal 150-199 mg/dL, Borderline high 200-499 mg/dL, High>499 mg/dL, Very highReference:1. National Cholesterol Education Program ATP III Guideline At-A-Glance Quick Desk Reference: National Heart, Lung, and Blood [place]. National Institutes of Health. 2001: NIH Publication No. 01-3305. Performed By: #### 2 4323-8, 2571-8, 3084-1 ####[facility] [id number] [address] [place] Triglyceride [Mass/Vol]on FASTING TIME 12 hrs Normal [facility] Comment on above: Order Comment: Speci men Type: BLOOD SPECIMENOrdering Facility: [facility] Address: [address] [place] [address] Performed By: #### 2 4323-8, 2571-8, 3084-1 ####[facility] [id number] [place] [address] [place] URINALYSIS, DIPSTICK ONLYon 01-22-2023 Bilirubin Ql (U) Negative Normal Negative [facility] Comment on above: Order Comment: Speci men Type: URINE SPECIMENOrdering Facility: [facility] Address: [address] [place] [address] Performed By: #### U A ####[facility] [id number] [place] [address] [place] Clarity (Unsp spec) Clear Normal Clear [facility] Comment on above: Order Comment: Speci men Type: URINE SPECIMENOrdering Facility: [facility] Address: [address] [address] Performed By: #### U A ####[facility] LABCLIA [id number] [place] [address] [place] Color (U) Colorless Normal Yellow [facility] Comment on above: Order Comment: Speci men Type: URINE SPECIMENOrdering Facility: [facility] Address: [address] [place] [address] Performed By: #### U A ####[facility] LABCLIA [id number] [address] [place] Glucose Test strip (U) [Mass/Vol] Trace Normal Trace, Negative [facility] Comment on above: Order Comment: Speci men Type: URINE SPECIMENOrdering Facility: [facility] Address: [address] [place] [address] Performed By: #### U A ####[facility] LABCLIA [id number] [place] [address] [place] Hemoglobin Ql (U) Negative Normal Negative, Trace [facility] Comment on above: Order Comment: Speci men Type: URINE SPECIMENOrdering Facility: [facility] Address: [address] [place] [address] Performed By: #### U A ####[facility] LABCLIA [id number] [place] [address] [place] Ketones Ql (U) Negative Normal Trace, Negative [facility] Comment on above: Order Comment: Speci men Type: URINE SPECIMENOrdering Facility: [facility] Address: [address] [place], [place] [address] Performed By: #### U A ####[facility] LABCLIA [id number] [place] [address] [place] Leukocyte esterase Test strip Ql (U) Negative Normal Negative, 25 Nabila/uL [facility] Comment on above: Order Comment: Speci men Type: URINE SPECIMENOrdering Facility: [facility] Address: [address] [place] [address] Performed By: #### U A ####[facility] LABIA [id number] [place] [address] [place] Nitrite Ql (U) Negative Normal Negative [facility] Comment on above: Order Comment: Speci men Type: URINE SPECIMENOrdering Facility: [facility] Address: [address] [place] [address] Performed By: #### U A ####[facility] LABIA [id number] [place] [address] [place] pH (U) 6.0 [pH] Normal 5.0-8.0 [facility] Comment on above: Order Comment: Speci men Type: URINE SPECIMENOrdering Facility: [facility] Address: [address] [place] [address] Performed By: #### U A ####[facility] LABIA [id number] [place] [address] [place] Protein (U) [Mass/Vol] Negative Normal Trace, Negative [facility] Comment on above: Order Comment: Speci men Type: URINE SPECIMENOrdering Facility: [facility] Address: [address] [place] [address] Performed By: #### U A ####[facility] LABIA [id number] [place] [address] [place] Specific gravity (U) [Rel density] 1.005 Normal 1.005-1.030 [facility] Comment on above: Order Comment: Speci men Type: URINE SPECIMENOrdering Facility: [facility] Address: [address] [place] [address] Performed By: #### U A ####[facility] LABIA [id number] [place] [address] [place] Urobilinogen Ql (U) Negative Normal Negative [facility] Comment on above: Order Comment: Speci men Type: URINE SPECIMENOrdering Facility: [facility] Address: [address] [place] [address] Performed By: #### U A ####[facility] LABIA [id number] [place] [address] [place] Urate SerPl-mCncon Urate [Mass/Vol] 2.8 mg/dL Low 4.0-8.1 [facility] Comment on above: Order Comment: Speci men Type: BLOOD SPECIMENOrdering Facility: [facility] Address: [address] [place] [address] Performed By: #### 2 4323-8, 2571-8, 3084-1 ####[facility] [id number] [place] [address] [place] aPTT PPPon 01-22-2023 aPTT Coag (PPP) [Time] 26.8 s Normal 23.0-32.4 [facility] Comment on above: Order Comment: Speci men Type: BLOOD SPECIMENOrdering Facility: [facility] Address: [address] [place] [address] Performed By: #### 3 4528-0, 51060-4 ####[facility] [id number] [place] [address] [place] CNPNon 01-21-2023 CNPN Normal [facility] BONE MARROW ANALYSISon 11-01 CASE REPORT Normal [facility] Comment on above: Order Comment: Speci men Type: BONE MARROW SPECIMENOrdering Facility: [facility] Address: [address] [place] [address] Result Comment: Bone Marrow Pathology Report Case: [id number] Provider: William Howell MD, PhD Collected: 11/01/2022 09:20 AMOrdering Location: [place] [address] Received: 11/01/2022 09:52 AMPathologist: SHAHBAZ Perrypecimens: A) - BONE MARROW ASPIRATE RIGHT POSTERIOR ILIAC CREST B) - BONE MARROW BIOPSY RIGHT POSTERIOR ILIAC CREST C) - BONE MARROW CLOT RIGHT POSTERIOR ILIAC CREST D) - Peripheral blood smear Performed By: #### B MRT ####[facility] LABCLIA [id number] [address] Result Comment: Flow Cytometry Case: [id number] Provider: William Howell MD, PhD Collected: 11/01/2022 09:20 AMOrdering Location: [place] [address] Received: 11/01/2022 11:21 AMPathologist: SHAHBAZ Perrypecimen: Bone Marrow Performed By: #### B MHROMI, BMHOLDRFLX ####[facility] [id number] [address] DIAGNOSIS COMMENT Normal [facility] Comment on above: Order Comment: Speci men Type: BONE MARROW SPECIMENOrdering Facility: [facility] Address: [address] [place] [address] Result Comment: 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 However, quantitative RT-PCR performed on the peripheral blood on 10/30/2022 detected p210 BCR::ABL1 transcripts (MR: 1.95; %IS: 1.1278), consistent with persistent disease detectable at the molecular level. Correlation with results of pending conventional cytogenetic analysis is recommended. Performed By: #### B MRT ####[facility] LABIA [id number] [address] Result Comment: This assay is not designed to detect minimal residual disease, plasma cell neoplasms, or myeloid antigen maturational patterns.This test was developed and its performance characteristics determined by [facility] Pathology and Laboratory Medicine [place] ([facility]). It has not been cleared or approved by the FDA. -PL[facility] is regulated under CLIA as qualified to perform high-complexity testing. This test is used for clinical purposes. It should not be regarded as investigational or for research. Performed By: #### B KEEGAN COLEX ####[facility] LABCLIA [id number] [address] FINAL DIAGNOSIS Normal [facility] Comment on above: Order Comment: Speci men Type: BONE MARROW SPECIMENOrdering Facility: [facility] Address: [address] [place] [address] Result Comment: A-C. Bone marrow, aspirate smear, touch imprint, clot section, and core biopsy:- Normocellular bone marrow (50%) with trilineage hematopoiesis.- Stainable iron present without ring sideroblasts.- No definite morphologic evidence of persistent chronic myeloid leukemia (see comment).D. Peripheral blood smear:- Mild granulocytic left-shift.KST/ 11/05/2022 Performed By: #### B MRT ####[facility] LABIA [id number] [address] FINAL PERFORMING LAB Normal [facility] Comment on above: Order Comment: Speci men Type: BONE MARROW SPECIMENOrdering Facility: [facility] Address: [address] [place] [address] Result Comment: Diag nostic interpretation performed at [facility], [address] [address] CLIA# [id number] Director: Tico Jeter M.D. Performed By: #### B MRT ####[facility] LABCLIA [id number] [address] Performed By: #### B EDA COLERFMelisaX ####[facility] LABCLIA [id number] [address] GROSS DESCRIPTION Normal [facility] Comment on above: Order Comment: Speci men Type: BONE MARROW SPECIMENOrdering Facility: [facility] Address: [address] [place] [address] Result Comment: A. B ONE MARROW ASPIRATE RIGHT POSTERIOR ILIAC CRESTReceived are air-dried bone marrow aspirate smears. Submitted for light microscopy.B. BONE MARROW BIOPSY RIGHT POSTERIOR ILIAC CRESTReceived in formalin are two segments of cylindrical tissue aggregating to 1.8 x 0.5 x 0.3 cm, brown and of a firm consistency. Totally submitted in formalin in one cassette after decalcification.C. BONE MARROW CLOT RIGHT POSTERIOR ILIAC CRESTReceived in formalin is a segment of red-brown hemorrhagic material measuring 2.0 x 1.0 x 0.9 cm. Totally submitted in formalin in one cassette.D. Peripheral blood smearReceived is a peripheral blood smear. Submitted for light microscopy.Gross examination performed at [facility], [address] 11/01/2022 7:10 PM Performed By: #### B MRT ####[facility] [id number] [address] OF [facility] MICROSCOPIC DESCRIPTION Normal [facility] Comment on above: Order Comment: Michaeli hubert Type: BONE MARROW SPECIMENOrdering Facility: [facility] Address: [address] [place] [address] Result Comment: JOSSY PHERAL BLOOD:CBC (10/30/2022) Differential CountWBC 9.12 k/uL Neutrophil 61.6%Hemoglobin 14.9 g/dL Lymphocyte 23.9%MCV 76.2 fL Monocyte 7.3%RDW-CV 13.9 % Eosinophil 5.3%Platelet Count 271 k/uL Basophil 0.8% Immature granulocyte 1.1%Morphology/Interpretation: Mild left shift in granulocyte maturation with a rare circulating metamyelocyte. Platelet clumps are noted. There is a microcytosis without anemia.BONE MARROW ASPIRATE:Result Normal Range1 % Blasts 0-21 % Promyelocytes 1-561 % Myelos/Metas/Bands/Segs 32-722 % Eosinophils 1-60 % Basophils 0-11 % Monocytes 0-422 % Erythroid precursors 13-3710 % Lymphocytes 7-232 % Plasma cells 0-2 Myeloid/Erythro (1.5-4): 3 Cells counted: 300. Iron stain result: Stainable iron present. Ring sideroblasts not identified. Specimen Quality: Adequate. Megakaryocytes: Present with unremarkable morphology. Erythropoiesis: Progressive maturation. Granulopoiesis: Progressive maturation.BONE MARROW BIOPSY: Adequacy: Adequate. Cellularity: Normal (50%). ME ratio: Normal. Hematopoiesis: Trilineage maturation. Megakaryocytes: Adequate. Megakaryocyte morphology: Unremarkable. Lymphoid infiltrate: None seen. Bone trabeculae: Unremarkable.CLOT SECTION: Marrow particles: Not identified. Morphology: Blood clot.ANCILLARY TESTS: Flow cytometry: Performed. Cytogenetics: Pending. FISH: N/A. Molecular: Buffy coat stored.KST/AMANDA 11/05/2022 Performed By: #### B MRT ####[facility] LABCLIA [id number] [address] BONE MARROW CHROMOSOME ANALo n 11-01-2022 CHROMOSOME BM Normal [facility] Comment on above: Order Comment: Order ing [facility] Address: [address] [place] [address] Result Comment: Leena pérez Accession Number: [id number]: Alycia HowelloPathologist: [facility] Pathology No: [id number] diagnosis: Chronic myeloid leukemiaSpecimen Type: Bone marrowReceived Date: 11/01/2022Number of cells counted: 20Number of cells analyzed: 20Number of cells karyotyped: 20Banding resolution: 400Banding method: G-bandingDIAGNOSIS: 46,XY[20]INTERPRETATION: Normal, male karyotypeCOMMENT: Ten metaphase cells were analyzed from the culturesupplemented with GM-CSF and ten metaphase cells were analyzed fromthe 24 hour unstimulated culture. Twenty cells analyzed showed a46,XY karyotype, or had single cell (non-clonal) structuralrearrangements, possibly due to culture artifact. There was nosignificant numerical chromosome abnormality and no structural changedetected within the limits of resolution.There was no cytogenetic evidence of the t(9;22)(q34;q11.2) observedin the April 2020 analysis. The analysis in May 2022 alsoshowed a normal karyotype.Clinical and pathologic correlation is recommended.As reviewed by Radha Lozano, PhD, FACMGPerformed by [facility] HospitalPathology [facility] Laboratory Medicine Institutevision of Molecular PathologyCytogenetics Lab, [id number] [address] [place], [place] [address]Phone: Toll free: Performed By: #### C HRBM ####[facility] LIMSCLIA [id number] [address] STATES OF [facility] BRIEF OP NOTon 11-01-2022 BRIEF OP NOT Normal [facility] CT BIOPSY BONE MARROW (HEMO) on 11-01-2022 CT BIOPSY BONE MARROW (HEMO) Normal [facility] DNA EXTRACTION BONE MARROW ( BUFFY COAT)on 11-01-2022 DNA EXTRACTION BONE MARROW (BUFFY COAT) Normal [facility] Comment on above: Order Comment: Speci men Type: BONE MARROW SPECIMENOrdering Facility: [facility] Address: [address] [place] [address] Result Comment: This specimen was received and successfully processed for future DNA purification should molecular testing be needed. Specimens will be available for 3 years from date of collection.To order testing on this specimen for [facility] patients, please place an [facility] order for DNA and RNA Clinical Testing ([id number]). To order testing for patients outside of the [facility] system, please request DNA and RNA for Clinical Testing, order code [id number].If additional paperwork is required for testing, please send completed forms via secure email to . Performed By: #### N UCBUF ####[facility] [place] The [facility] Pharmaceutical GroupSCLIA [id number] [address] OF [facility] FLOW CYTOMETRY BONE MARROW H OLD (BMHOLD)on 11-01-2022 FLOW CYTOMETRY ORDER STATUS See Results in chart under F case ID Normal [facility] Comment on above: Order Comment: Speci men Type: BONE MARROW SPECIMENOrdering Facility: [facility] Address: [address] [address] Performed By: #### B KEEGAN COLEX ####[facility] LABCLIA [id number] [place] [address] [place] FLOW CYTOMETRY BONE MARROW R EFLEXon 11-01-2022 FLOW CYTOMETRY RESULTS Normal [facility] Comment on above: Order Comment: Speci men Type: BONE MARROW SPECIMENOrdering Facility: [facility] Address: [address] [address] Result Comment: Spec imen type: Bone Marrow Aspirate.Viability: 98%.Flow Cytometry Bone Marrow ImmunophenotypingMarker Normal Cell Type Result (Lymphocytes)CD3 T-cells Normal PatternCD4 T-cell subset Normal PatternCD5 T-cells Normal PatternCD7 T/NK-cells Normal PatternCD8 T-cell subset Normal AadhrrqBP70 Myeloid Normal WnfozoeSL41/56 NK cells Normal SyhyinwIE04 B-cells Normal EyajbbbVP87 Blasts Normal NlxafloQD23 Costa-leukocyte Normal Patternkappa/lambda B-cells PolytypicFlow cytometric analysis of the bone marrow aspirate reveals that 10% of total events have the CD45 and light scatter properties of lymphocytes. The lymphocytes are composed of T-cells (47%; CD4:CD8 ratio = 0.96), NK cells (7%), and polytypic B-cells (47%). Granulocytic elements are 71% of events. Blasts are not increased. Performed By: #### B EDA COLERFMelisaX ####[facility] LABCLIA [id number] [place] [address] [place] [facility] GROSS DESCRIPTION A. Bone Marrow Normal [facility] Comment on above: Order Comment: Speci men Type: BONE MARROW SPECIMENOrdering Facility: [facility] Address: [address] [place] [address] Result Comment: Rece ived 2 mLs of bone marrow in heparin. Performed By: #### B EDA COLERFLX ####[facility] LABCLIA [id number] [place] [address] [place] INTERPRETATION Normal [facility] Comment on above: Order Comment: Speci men Type: BONE MARROW SPECIMENOrdering Facility: [facility] Address: [address] [place] [address] Result Comment: Ther e is no evidence of involvement by a lymphoproliferative disorder or abnormal blast population. Correlation with the clinical and bone marrow histopathologic findings is suggested.KST/JRP 11/05/2022 Performed By: #### B DOUGLAS, BMHOLDRFLX ####[facility] LABCLIA [id number] [address] OF [facility] HISTORY PHYSICALon HISTORY PHYSICAL Normal [facility] NURSING PROGon 11-01-2022 NURSING PROG Normal [facility] PT EDon 11-01-2022 PT ED Normal [facility] Amylase SerPl-cCncon 023 Amylase [Catalytic activity/Vol] 49 U/L Normal 30-104 [facility] Comment on above: Order Comment: Speci men Type: BLOOD SPECIMENOrdering Facility: [facility] Address: [address] [place] [address] Performed By: #### 3 040-3, 32136-1, 2777-1, 1798-8, 58494-7 ####[facility] [id number] [address] [place] BCR/ABL1 P210 %IS PANELon BCR/ABL1 P210 %IS 1.1278 Normal [facility] Comment on above: Order Comment: Speci men Type: BLOOD SPECIMENOrdering Facility: [facility] Address: [address] [place] [address] Performed By: #### P 210P ####[facility] LIMSCLIA [id number] [place] [address] [place]#### 210ISBP ####[facility] LABCLIA [id number] [address] BCR/ABL1 P210 MR 1.95 Normal [facility] Comment on above: Order Comment: Speci men Type: BLOOD SPECIMENOrdering Facility: [facility] Address: [address] [place] [address] Performed By: #### P 210P ####[facility] LIMSCLIA [id number] [address]#### 210ISBP ####[facility] LABCLIA [id number] [address] BCR/ABL1 P210 QUANTITATIVE P CR BLOODon 10-30-2022 BCR/ABL1 P210 INTERPRETATION Normal [facility] Comment on above: Order Comment: Speci men Type: BLOOD SPECIMENOrdering Facility: [facility] Address: [address] [place] [address] Result Comment: BCR/ ABL1 p210 Quantitative PCRLaboratory Accession Number: [id number]:DETECTEDMR: 1.95%IS: 1.1278Interpretation:p210 BCR/ABL1 transcripts were detected. Quantitative results areexpressed on the International Scale (IS) and a log molecular response(MR) is calculated. On this scale, a value of less than or equal to0.1% corresponds to a major molecular response (MMR or MR3.0).Methodology:The [employer] QuantideX BCR/ABL IS assay is an FDA-cleared in vitrodiagnostic test for the quantitation of BCR/ABL1 and ABL1 transcriptsin total RNA from whole blood of diagnosed t(9;22) positive chronicmyeloid leukemia patients expressing e13a2 and/or e14a2 fusiontranscripts. This test does not detect p190 (e1a2) or other rareBCR/ABL1 transcripts. This assay has a limit of quantification andlimit of detection of 0.002% IS or MR4.7.References:1) Janet et al, Blood 2006;108:28-37; Janes et al, Qdpyxrza0461;29:999-1003As reviewed by Chaparro Orellana MD Performed By: #### P 210P ####[facility] LIMSCLIA [id number] [place] [address] [place]#### 210ISBP ####[facility] [id number] [place] [address] [place] Bilirub Conj SerPl-mCncon Bilirubin.conjugat ed [Mass/Vol] mg/dL Normal <0.2 [facility] Comment on above: Order Comment: Speci men Type: BLOOD SPECIMENOrdering Facility: [facility] Address: [address] [place] [address] Performed By: #### 3 040-3, 20194-0, 2777-1, 1798-8, 88407-8 ####[facility] [id number] [address] [place] CBC W Auto Differential pane l (Bld)on 10-30-2022 Basophils (Bld) [#/Vol] 0.07 10*3/uL Normal <0.11 [facility] Comment on above: Order Comment: Speci men Type: BLOOD SPECIMENOrdering Facility: [facility] Address: [address] [place] [address] Performed By: #### 5 7021-8 ####[facility] [id number] [address] [place] Basophils/100 WBC (Bld) 0.8 % Normal [facility] Comment on above: Order Comment: Speci men Type: BLOOD SPECIMENOrdering Facility: [facility] Address: [address] [place] [address] Performed By: #### 5 7021-8 ####[facility] [id number] [place] [address] [place] Differential cell count method Nom (Bld) Auto Normal [facility] Comment on above: Order Comment: Speci men Type: BLOOD SPECIMENOrdering Facility: [facility] Address: [address] [address] Performed By: #### 5 7021-8 ####[facility] [id number] [place] [address] [place] Eosinophils (Bld) [#/Vol] 0.48 10*3/uL High <0.46 [facility] Comment on above: Order Comment: Speci men Type: BLOOD SPECIMENOrdering Facility: [facility] Address: [address] [address] Performed By: #### 5 7021-8 ####[facility] [id number] [place] [address] [place] Eosinophils/100 WBC (Bld) 5.3 % Normal [facility] Comment on above: Order Comment: Speci men Type: BLOOD SPECIMENOrdering Facility: [facility] Address: [address] [place] [address] Performed By: #### 5 7021-8 ####[facility] [id number] [place] [address] [place] Erythrocyte distribution width (RBC) [Ratio] 13.9 % Normal 11.5-15.0 [facility] Comment on above: Order Comment: Speci men Type: BLOOD SPECIMENOrdering Facility: [facility] Address: [address] [place], [place] [address] Performed By: #### 5 7021-8 ####[facility] [id number] [place] [address] [place] Hematocrit (Bld) [Volume fraction] 43.0 % Normal 39.0-51.0 [facility] Comment on above: Order Comment: Speci men Type: BLOOD SPECIMENOrdering Facility: [facility] Address: [address] [place] [address] Performed By: #### 5 7021-8 ####[facility] [id number] [place] [address] [place] Hemoglobin (Bld) [Mass/Vol] 14.9 g/dL Normal 13.0-17.0 [facility] Comment on above: Order Comment: Speci men Type: BLOOD SPECIMENOrdering Facility: [facility] Address: [address] [place] [address] Performed By: #### 5 7021-8 ####[facility] [id number] [place] [address] [place] Immature granulocytes (Bld) [#/Vol] 0.10 10*3/uL High <0.10 [facility] Comment on above: Order Comment: Speci men Type: BLOOD SPECIMENOrdering Facility: [facility] Address: [address] [place] [address] Performed By: #### 5 7021-8 ####[facility] [id number] [place] [address] [place] Immature granulocytes/100 WBC (Bld) 1.1 % Normal [facility] Comment on above: Order Comment: Speci men Type: BLOOD SPECIMENOrdering Facility: [facility] Address: [address] [place] [address] Performed By: #### 5 7021-8 ####[facility] [id number] [place] [address] [place] Lymphocytes (Bld) [#/Vol] 2.18 10*3/uL Normal 1.00-4.00 [facility] Comment on above: Order Comment: Speci men Type: BLOOD SPECIMENOrdering Facility: [facility] Address: [address] [place] [address] Performed By: #### 5 7021-8 ####[facility] [id number] [place] [address] [place] Lymphocytes/100 WBC (Bld) 23.9 % Normal [facility] Comment on above: Order Comment: Speci men Type: BLOOD SPECIMENOrdering Facility: [facility] Address: [address] [address] Performed By: #### 5 7021-8 ####[facility] [id number] [place] [address] MCH (RBC) [Entitic mass] 26.4 pg Normal 26.0-34.0 [facility] Comment on above: Order Comment: Speci men Type: BLOOD SPECIMENOrdering Facility: [facility] Address: [address] [address] Performed By: #### 5 7021-8 ####[facility] [id number] [place] [address] MCHC (RBC) [Mass/Vol] 34.7 g/dL Normal 30.5-36.0 [facility] Comment on above: Order Comment: Speci men Type: BLOOD SPECIMENOrdering Facility: [facility] Address: [address] [place] [address] Performed By: #### 5 7021-8 ####[facility] [id number] [place] [address] MCV (RBC) [Entitic vol] 76.2 fL Low 80.0-100.0 [facility] Comment on above: Order Comment: Speci men Type: BLOOD SPECIMENOrdering Facility: [facility] Address: [address] [place], [place] [address] Performed By: #### 5 7021-8 ####[facility] [id number] [place] [address] [place] Monocytes (Bld) [#/Vol] 0.67 10*3/uL Normal <0.87 [facility] Comment on above: Order Comment: Speci men Type: BLOOD SPECIMENOrdering Facility: [facility] Address: [address] [place], [place] [address] Performed By: #### 5 7021-8 ####[facility] [id number] [place] [address] [place] Monocytes/100 WBC (Bld) 7.3 % Normal [facility] Comment on above: Order Comment: Speci men Type: BLOOD SPECIMENOrdering Facility: [facility] Address: [address] [place] [address] Performed By: #### 5 7021-8 ####[facility] [id number] [place] [address] [place] Neutrophils (Bld) [#/Vol] 5.62 10*3/uL Normal 1.45-7.50 [facility] Comment on above: Order Comment: Speci men Type: BLOOD SPECIMENOrdering Facility: [facility] Address: [address] [place] [address] Performed By: #### 5 7021-8 ####[facility] [id number] [place] [address] [place] Neutrophils/100 WBC (Bld) 61.6 % Normal [facility] Comment on above: Order Comment: Speci men Type: BLOOD SPECIMENOrdering Facility: [facility] Address: [address] [place] [address] Performed By: #### 5 7021-8 ####[facility] [id number] [place] [address] [place] Nucleated RBC (Bld) [#/Vol] 10*3/uL Normal <0.01 [facility] Comment on above: Order Comment: Speci men Type: BLOOD SPECIMENOrdering Facility: [facility] Address: [address] [place], [place] [address] Performed By: #### 5 7021-8 ####[facility] [id number] [place] [address] [place] Nucleated RBC/100 WBC (Bld) [Ratio] 0.0 /100 WBC Normal [facility] Comment on above: Order Comment: Speci men Type: BLOOD SPECIMENOrdering Facility: [facility] Address: [address] [place] [address] Performed By: #### 5 7021-8 ####[facility] [id number] [place] [address] [place] Platelet mean volume (Bld) [Entitic vol] 9.4 fL Normal 9.0-12.7 [facility] Comment on above: Order Comment: Speci men Type: BLOOD SPECIMENOrdering Facility: [facility] Address: [address] [place] [address] Performed By: #### 5 7021-8 ####[facility] [id number] [place] [address] [place] Platelets (Bld) [#/Vol] 271 10*3/uL Normal 150-400 [facility] Comment on above: Order Comment: Speci men Type: BLOOD SPECIMENOrdering Facility: [facility] Address: [address] [place], [place] [address] Performed By: #### 5 7021-8 ####[facility] [id number] [place] [address] [place] RBC (Bld) [#/Vol] 5.64 10*6/uL Normal 4.20-6.00 [facility] Comment on above: Order Comment: Speci men Type: BLOOD SPECIMENOrdering Facility: [facility] Address: [address] [place], [place] [address] Performed By: #### 5 7021-8 ####[facility] [id number] [place] [address] [place] WBC (Bld) [#/Vol] 9.12 10*3/uL Normal 3.70-11.00 [facility] Comment on above: Order Comment: Speci men Type: BLOOD SPECIMENOrdering Facility: [facility] Address: [address] [place] [address] Performed By: #### 5 7021-8 ####[facility] [id number] [address] [place] CK SerPl-cCncon 10-30-2022 CK [Catalytic activity/Vol] 65 U/L Normal 51-298 [facility] Comment on above: Order Comment: Speci men Type: BLOOD SPECIMENOrdering Facility: [facility] Address: [address] [place] [address] Performed By: #### 2 157-6, 1987-10, HSTNT ####[facility] [id number] [address] [place] CNNURSEon 10-30-2022 CNNURSE Normal [facility] CNOVSPon 10-30-2022 CNOVSP Normal [facility] CRP SerPl-mCncon 10-30-2022 CRP [Mass/Vol] 0.8 mg/dL Normal <0.9 [facility] Comment on above: Order Comment: Speci men Type: BLOOD SPECIMENOrdering Facility: [facility] Address: [address] [place] [address] Performed By: #### 2 157-6, 1987-10, HSTNT ####[facility] [id number] [address] [place] Cholest SerPl-mCncon 023 Cholesterol [Mass/Vol] 198 mg/dL Normal <200 [facility] Comment on above: Order Comment: Speci men Type: BLOOD SPECIMENOrdering Facility: [facility] Address: [address] [place], [place] [address] Result Comment: <200 mg/dL, Desirable 200-239 mg/dL, Borderline high>239 mg/dL, HighReference:1. National Cholesterol Education Program ATP III Guideline At-A-Glance Quick Desk Reference: National Heart, Lung, and Blood [place]. National Institutes of Health. 2001: NIH Publication No. 01-3305. Performed By: #### 2 093-3 ####[facility] [id number] [place] [address] [place] [facility] Comprehensive metabolic 2000 panelon 10-30-2022 Albumin [Mass/Vol] 4.2 g/dL Normal 3.9-4.9 [facility] Comment on above: Order Comment: Speci men Type: BLOOD SPECIMENOrdering Facility: [facility] Address: [address] [address] Performed By: #### 2 4323-8, 2571-8, 3084-1 ####[facility] [id number] [place] [address] [place] ALP [Catalytic activity/Vol] 190 U/L High 38-113 [facility] Comment on above: Order Comment: Speci men Type: BLOOD SPECIMENOrdering Facility: [facility] Address: [address] [address] Performed By: #### 2 4323-8, 2571-8, 3084-1 ####[facility] [id number] [address] ALT [Catalytic activity/Vol] 47 U/L Normal 10-54 [facility] Comment on above: Order Comment: Speci men Type: BLOOD SPECIMENOrdering Facility: [facility] Address: [address] Performed By: #### 2 4323-8, 2571-8, 3084-1 ####[facility] [id number] [address] Anion gap [Moles/Vol] 7 mmol/L Low 9-18 [facility] Comment on above: Order Comment: Speci men Type: BLOOD SPECIMENOrdering Facility: [facility] Address: [address] [address] Performed By: #### 2 4323-8, 257-8, 3083- ####[facility] [id number] [place] [address] [place] AST [Catalytic activity/Vol] 32 U/L Normal 14-40 [facility] Comment on above: Order Comment: Speci men Type: BLOOD SPECIMENOrdering Facility: [facility] Address: [address] [place] [address] Performed By: #### 2 4323-8, 2570-8, 3083- ####[facility] [id number] [place] [address] [place] Bilirubin [Mass/Vol] 0.4 mg/dL Normal 0.2-1.3 [facility] Comment on above: Order Comment: Speci men Type: BLOOD SPECIMENOrdering Facility: [facility] Address: [address] [place] [address] Performed By: #### 2 4323-8, 8, 3083-06 ####[facility] [id number] [place] [address] [place] Calcium [Mass/Vol] 9.7 mg/dL Normal 8.5-10.2 [facility] Comment on above: Order Comment: Speci men Type: BLOOD SPECIMENOrdering Facility: [facility] Address: [address] [place], [place] [address] Performed By: #### 2 4323-8, 8, 3083-06 ####[facility] [id number] [place] [address] [place] Chloride [Moles/Vol] 100 mmol/L Normal 97-105 [facility] Comment on above: Order Comment: Speci men Type: BLOOD SPECIMENOrdering Facility: [facility] Address: [address] [place], [place] [address] Performed By: #### 2 4323-8, 2570-8, 3083-06 ####[facility] [id number] [place] [address] [place] CO2 [Moles/Vol] 29 mmol/L Normal 22-30 [facility] Comment on above: Order Comment: Speci men Type: BLOOD SPECIMENOrdering Facility: [facility] Address: [address] [place] [address] Performed By: #### 2 4323-8, 2570-8, 3083-06 ####[facility] [id number] [place] [address] [place] Creatinine [Mass/Vol] 0.64 mg/dL Low 0.73-1.22 [facility] Comment on above: Order Comment: Speci men Type: BLOOD SPECIMENOrdering Facility: [facility] Address: [address] [place] [address] Performed By: #### 2 4323-8, 2571-01, 3083-06 ####[facility] [id number] [place] [address] [place] ESTIMATED GLOMERULAR FILTRATION RATE 112 mL/min/1.73m??? Normal >=60 [facility] Comment on above: Order Comment: Speci men Type: BLOOD SPECIMENOrdering Facility: [facility] Address: [address] [place] [address] Result Comment: Najma mated Glomerular Filtration Rate (eGFR) is calculated using the 2020 CKD-EPI creatinine equation. This equation utilizes serum creatinine, sex, and age as parameters. The creatinine assay has traceable calibration to isotope dilution-mass spectrometry. Refer to KDIGO guidelines for clinical interpretation. In patients with unstable renal function, e.g. those with acute kidney injury, the eGFR may not accurately reflect actual GFR. Performed By: #### 2 4323-8, 2570-8, 3083-06 ####[facility] [id number] [place] [address] [place] Glucose [Mass/Vol] 143 mg/dL High 74-99 [facility] Comment on above: Order Comment: Rosa gaspar Type: BLOOD SPECIMENOrdering Facility: [facility] Address: [address] [place] [address] Result Comment: The [place] [employer] (ADA) provides guidance for cutoff values for fasting glucose and random glucose. The ADA defines fasting as no caloric intake for at least 8 hours. Fasting plasma glucose results between 100 to 125 mg/dL indicate increased risk for diabetes (prediabetes).Fasting plasma glucose results greater than or equal to 126 mg/dL meet the criteria for diagnosis of diabetes. In the absence of unequivocal hyperglycemia, results should be confirmed by repeat testing. In a patient with classic symptoms of hyperglycemia or hyperglycemic crisis, random plasma glucose results greater than or equal to 200 mg/dL meet the criteria for diagnosis of diabetes.Reference: Standards of Medical Care in Diabetes 2016, [place] [employer]. Diabetes Care. 2016.39(Suppl 1). Performed By: #### 2 4323-8, 2571-8, 3084-1 ####[facility] [id number] [place] [address] [place] Potassium [Moles/Vol] 4.5 mmol/L Normal 3.7-5.1 [facility] Comment on above: Order Comment: Rosa gaspar Type: BLOOD SPECIMENOrdering Facility: [facility] Address: [address] [place] [address] Performed By: #### 2 4323-8, 2571-8, 3084-1 ####[facility] [id number] [place] [address] [place] Protein [Mass/Vol] 8.4 g/dL High 6.3-8.0 [facility] Comment on above: Order Comment: Rosa gaspar Type: BLOOD SPECIMENOrdering Facility: [facility] Address: [address] [place] [address] Performed By: #### 2 4323-8, 2571-8, 3084-1 ####[facility] [id number] [address] [id number] [address] [place] Sodium [Moles/Vol] 136 mmol/L Normal 136-144 [facility] Comment on above: Order Comment: Speci men Type: BLOOD SPECIMENOrdering Facility: [facility] Address: [address] [place] [address] Performed By: #### 2 4323-8, 2571-8, 3084-1 ####[facility] [id number] [place] [address] [place] Urea nitrogen [Mass/Vol] 11 mg/dL Normal 9-24 [facility] Comment on above: Order Comment: Speci men Type: BLOOD SPECIMENOrdering Facility: [facility] Address: [address] [place] [address] Performed By: #### 2 4323-8, 2571-8, 3084-1 ####[facility] [id number] [place] [address] [place] [id number] 10-30-2022 ECG01 Normal [facility] ECG01 Normal [facility] HIGH SENSITIVITY TROPONIN To n 10-30-2022 HIGH SENSITIVITY TRACY 24 ng/L High <12 [facility] Comment on above: Order Comment: Speci men Type: BLOOD SPECIMENOrdering Facility: [facility] Address: [address] [place] [address] Result Comment: When assessing risk for acute coronary syndromes: In patients undergoing blood draw greater than or equal to 2 hours from symptom onset, with history of very low to moderate risk and non-ischemic ECG, an initial hs-Troponin T less than 12 ng/L AND a 1 hour delta hs-Troponin T less than 3 ng/L should be considered very low risk for 30 day MACE. Performed By: #### 2 157-6, 1987-10, HSTNT ####[facility] LABCLIA [id number] [place] [address] [place] Lipase SerPl-cCncon 10-31-19 23 Lipase [Catalytic activity/Vol] 43 U/L Normal 16-61 [facility] Comment on above: Order Comment: Rosa gaspar Type: BLOOD SPECIMENOrdering Facility: [facility] Address: [address] [place], [place] [address] Performed By: #### 3 040-3, 58933-2, 2777-1, 1798-8, 02283-5 ####[facility] [id number] [address] STATES OF [facility] Magnesium SerPl-mCncon 10-30 Magnesium [Mass/Vol] 2.1 mg/dL Normal 1.7-2.3 [facility] Comment on above: Order Comment: Rosa gaspar Type: BLOOD SPECIMENOrdering Facility: [facility] Address: [address] [place], [place] [address] Performed By: #### 3 040-3, 16159-4, 2777-1, 1798-8, 03023-3 ####[facility] [id number] [place] [address] [place] PT panel Coag (PPP)on 2022 INR Coag (PPP) [Relative time] 1.0 {INR} Normal 0.9-1.3 [facility] Comment on above: Order Comment: Rosa gaspar Type: BLOOD SPECIMENOrdering Facility: [facility] Address: [address] [place] [address] Result Comment: Nyla min K Antagonist (VKA) Therapeutic Range: INR 2 to 3 (Target INR of 2.5)Note: For patients treated with VKA drugs, such as warfarin, the [employer] [employer] 2012 Guideline recommends a therapeutic INR range of 2 to 3 (target INR of 2.5). This recommendation includes high-risk patients with antiphospholipid syndrome with previous arterial or venous thromboembolism, current-generation mechanical or bioprosthetic aortic heart valve replacement.Note: Patients with mechanical aortic valve replacement and additional risk factors for thromboembolic events (atrial fibrillation, previous thromboembolism, LV dysfunction, hypercoagulable conditions) or an older generation mechanical AVR (i.e., ball in-Cage) or any mechanical MVR should have a INR therapeutic range of 2.5 to 3.5 (target INR of 3).Coby REYES, et al. Chest 2012, 141:7S-47SNishimura RA, et al. JAC 2017, 70: 252-289 Performed By: #### 3 4528-0, 01328-5 ####[facility] LABIA [id number] [place] [address] [place] PT Coag (PPP) [Time] 10.3 s Normal 9.7-13.0 [facility] Comment on above: Order Comment: Speci men Type: BLOOD SPECIMENOrdering Facility: [facility] Address: [address] [place] [address] Performed By: #### 3 4528-0, 24153-6 ####[facility] LABIA [id number] [address] [place] Phosphate SerPl-mCncon 10-30 Phosphate [Mass/Vol] 3.3 mg/dL Normal 2.7-4.8 [facility] Comment on above: Order Comment: Speci men Type: BLOOD SPECIMENOrdering Facility: [facility] Address: [address] [place] [address] Performed By: #### 3 040-3, 33575-5, 2777-1, 1798-8, 20395-0 ####[facility] [id number] [place] [address] [place] Trigl SerPl-mCncon 3 Triglyceride [Mass/Vol] 128 mg/dL Normal <150 [facility] Comment on above: Order Comment: Speci men Type: BLOOD SPECIMENOrdering Facility: [facility] Address: [address] [place] [address] Result Comment: <150 mg/dL, Normal 150-199 mg/dL, Borderline high 200-499 mg/dL, High>499 mg/dL, Very highReference:1. National Cholesterol Education Program ATP III Guideline At-A-Glance Quick Desk Reference: National Heart, Lung, and Blood [place]. National Institutes of Health. 2001: NIH Publication No. 01-3305. Performed By: #### 2 4323-8, 2571-8, 3084-1 ####[facility] [id number] [address] STATES OF [facility] Triglyceride [Mass/Vol]on FASTING TIME 12 hrs Normal [facility] Comment on above: Order Comment: Speci men Type: BLOOD SPECIMENOrdering Facility: [facility] Address: [address] [address] Performed By: #### 2 4323-8, 2571-8, 3084-1 ####[facility] [id number] [address] OF [place] URINALYSIS, DIPSTICK ONLYon 10-30-2022 Bilirubin Ql (U) Negative Normal Negative [facility] Comment on above: Order Comment: Speci men Type: URINE SPECIMENOrdering Facility: [facility] Address: [address] [address] Performed By: #### U A ####[facility] [id number] [address] [place] Clarity (Unsp spec) Clear Normal Clear [facility] Comment on above: Order Comment: Speci men Type: URINE SPECIMENOrdering Facility: [facility] Address: [address] [address] Performed By: #### U A ####[facility] [id number] [address] [place] Color (U) Colorless Normal Yellow [facility] Comment on above: Order Comment: Speci men Type: URINE SPECIMENOrdering Facility: [facility] Address: [address] [address] Performed By: #### U A ####[facility] [id number] [id number] Glucose Test strip (U) [Mass/Vol] Negative Normal Trace, Negative [facility] Comment on above: Order Comment: Speci men Type: URINE SPECIMENOrdering Facility: [facility] Address: [address] [address] Performed By: #### U A ####[facility] [id number] [place] [address] [place] Hemoglobin Ql (U) Negative Normal Negative, Trace [facility] Comment on above: Order Comment: Speci men Type: URINE SPECIMENOrdering Facility: [facility] Address: [address] [place] [address] Performed By: #### U A ####[facility] [id number] [address] [place] Ketones Ql (U) Negative Normal Trace, Negative [facility] Comment on above: Order Comment: Speci men Type: URINE SPECIMENOrdering Facility: [facility] Address: [address] [address] Performed By: #### U A ####[facility] [id number] [address] STATES [facility] Leukocyte esterase Test strip Ql (U) Negative Normal Negative, 25 Nabila/uL [facility] Comment on above: Order Comment: Speci men Type: URINE SPECIMENOrdering Facility: [facility] Address: [address] [address] Performed By: #### U A ####[facility] [id number] [place] [address] [place] Nitrite Ql (U) Negative Normal Negative [facility] Comment on above: Order Comment: Speci men Type: URINE SPECIMENOrdering Facility: [facility] Address: [address] [address] Performed By: #### U A ####[facility] [id number] [place] [address] [place] pH (U) 6.0 [pH] Normal 5.0-8.0 [facility] Comment on above: Order Comment: Speci men Type: URINE SPECIMENOrdering Facility: [facility] Address: [address] [place] [address] Performed By: #### U A ####[facility] LABIA [id number] [place] [address] [place] Protein (U) [Mass/Vol] Negative Normal Trace, Negative [facility] Comment on above: Order Comment: Speci men Type: URINE SPECIMENOrdering Facility: [facility] Address: [address] [place] [address] Performed By: #### U A ####[facility] [id number] [place] [address] [place] Specific gravity (U) [Rel density] 1.009 Normal 1.005-1.030 [facility] Comment on above: Order Comment: Speci men Type: URINE SPECIMENOrdering Facility: [facility] Address: [address] [place] [address] Performed By: #### U A ####[facility] LABIA [id number] [address] [place] Urobilinogen Ql (U) Negative Normal Negative [facility] Comment on above: Order Comment: Speci men Type: URINE SPECIMENOrdering Facility: [facility] Address: [address] [place] [address] Performed By: #### U A ####[facility] [id number] [place] [address] [place] Urate SerPl-mCncon 3 Urate [Mass/Vol] 3.5 mg/dL Low 4.0-8.1 [facility] Comment on above: Order Comment: Speci men Type: BLOOD SPECIMENOrdering Facility: [facility] Address: [address] [id number] Performed By: #### 2 4323-8, 2571-8, 3084-1 ####[facility] [id number] [address] [place] aPTT PPPon 10-30-2022 aPTT Coag (PPP) [Time] 25.2 s Normal 23.0-32.4 [facility] Comment on above: Order Comment: Speci men Type: BLOOD SPECIMENOrdering Facility: [facility] Address: [address] [address] Performed By: #### 3 4528-0, 54737-7 ####[facility] [id number] [address] [place] NURSING PROGon 10-29-2022 NURSING PROG Normal [facility] Office Visiton 10-16-2022 Follow-up visit [id number] Eda Avitia 1970 M Date Provider Department Center 10/16/2022 ANGUS FRAZIER MP ORTHO MPORTHO No family history on file Level of Service:97944 SC OFFICE/OUTPATIENT NEW LOW MDM 30-44 MINUTES (GC) Reason for Visit and Comments: Pain [136] Normal [facility] CNOVon 10-15-2022 CNOV Normal [facility] HEMOGLOBIN A1C (POC)on 10-15 HbA1c (Bld) [Mass fraction] 8.5 % Abnormal 4.2 - 5.6 % [facility] CBC AUTO DIFFon 08-06-2022 BASO # 0.1 103/ul Normal 0.0-0.1 [facility] Comment on above: Performed By: #### C BC #### [facility] [address] [place], [place] [address] Dr. Yinka Flores Basophils/100 WBC (Bld) 0.8 % Normal 0.2-2.0 [facility] Comment on above: Performed By: #### C BC #### [facility] [address] [place] [address] Dr. Yinka Flores EO # 0.5 103/ul Normal 0.0-0.7 [facility] Comment on above: Performed By: #### C BC #### [facility] [address] [place] [address] Dr. Yinka Flores Eosinophils/100 WBC (Bld) 4.5 % Normal 0.9-7.0 [facility] Comment on above: Performed By: #### C BC #### [facility] [address] [place] [address] Dr. Yinka Flores Erythrocyte distribution width (RBC) [Ratio] 14.4 % Normal 11.0-15.0 [facility] Comment on above: Performed By: #### C BC #### [facility] [address] [place] [address] Dr. Yinka Flores Hematocrit (Bld) [Volume fraction] 43.6 % Normal 42.0-54.0 [facility] Comment on above: Performed By: #### C BC #### [facility] [address] [place] [address] Dr. Yinka Flores Hemoglobin (Bld) [Mass/Vol] 14.7 g/dL Normal 14.0-18.0 [facility] Comment on above: Performed By: #### C BC #### [facility] [address] [place] [address] Dr. Yinka Flores IG # 0.06 10e3/ul Critically high 0.00-0.03 [facility] Comment on above: Performed By: #### C BC #### [facility] [address] [place] [address] Dr. Yinka Flores IG % 0.5 % Normal 0.0-0.5 [facility] Comment on above: Performed By: #### C BC #### [facility] [address] [place] [address] Dr. Yinka Flores LYMPH # 3.3 103/ul Normal 1.2-3.8 [facility] Comment on above: Performed By: #### C BC #### [facility] [address] [place] [address] Dr. Yinka Flores Lymphocytes/100 WBC (Bld) 27.8 % Normal 20.5-60.0 [facility] Comment on above: Performed By: #### C BC #### [facility] [address] [place] [address] Dr. Yinka Flores MANUAL DIFF REQ NO Normal [facility] Comment on above: Performed By: #### C BC #### [facility] [address] [place] [address] Dr. Yinka Flores MCH (RBC) [Entitic mass] 26.1 pg Normal 25.9-34.0 [facility] Comment on above: Performed By: #### C BC #### [facility] [address] [place] [address] Dr. Yinka Flores MCHC (RBC) [Mass/Vol] 33.7 g/dL Normal 29.9-35.2 [facility] Comment on above: Performed By: #### C BC #### [facility] [address] [place] [address] Dr. Yinka Flores MCV (RBC) [Entitic vol] 77.3 fL Critically low 80.0-94.0 [facility] Comment on above: Performed By: #### C BC #### [facility] [address] [place] [address] Dr. Yinka Flores MONO # 0.8 103/ul Normal 0.3-0.8 [facility] Comment on above: Performed By: #### C BC #### [facility] [address] [place] [address] Dr. Yinka Flores Monocytes/100 WBC (Bld) 6.6 % Normal 1.7-12.0 [facility] Comment on above: Performed By: #### C BC #### [facility] [address] [place] [address] Dr. Yinka Flores NEUT # 7.1 103/ul Critically high 1.4-6.5 [facility] Comment on above: Performed By: #### C BC #### [facility] [address] [place] [address] Dr. Yinka Flores Neutrophils/100 WBC (Bld) 59.8 % Normal 43.0-75.0 [facility] Comment on above: Performed By: #### C BC #### [facility] [address] [place] [address] Dr. Yinka Flores Platelet mean volume (Bld) [Entitic vol] 9.5 fL Normal 9.5-13.5 [facility] Comment on above: Performed By: #### C BC #### [facility] [address] [address] [address] Yinka Flores PLT 257 103/ul Normal 150-450 [facility] Comment on above: Performed By: #### C BC #### [facility] [address] [place] [address] Dr. Yinka Flores RBC 5.64 106/ul Normal 4.70-6.10 [facility] Comment on above: Performed By: #### C BC #### [facility] [address] [place] [address] Dr. Yinka Flores WBC 11.9 103/ul Critically high 4.0-11.0 [facility] Comment on above: Performed By: #### C BC #### [facility] [address] [place] [address] Dr. Yinka Flores GLYCOHEMOGLOBIN A1Con 2022 ADA RECOMMENDATION SEE BELOW Normal [facility] Comment on above: Result Comment: ADA RECOMMENDED LIMIT 4.0 - 6.0 ADA THERAPEUTIC TARGET < 7.0 ACTION SUGGESTED > 7.0 Performed By: #### A 1C #### [facility] [address] [place] [address] Dr. Yinka Flores Glucose [Mass/Vol] 189 mg/dL Normal [facility] Comment on above: Performed By: #### A 1C #### [facility] [address] [place] [address] Dr. Yinka Flores HbA1c (Bld) [Mass fraction] 8.2 % Critically high 4.5-6.2 [facility] Comment on above: Performed By: #### A 1C #### [facility] [address] [place] [address] Dr. Yinka Flores LIPID PROFILEon 08-06-2022 CHOL-HDL RATIO NORM SEE BELOW Normal [facility] Comment on above: Result Comment: 3.3 - 4.4 LOW RISK 4.4 - 7.1 AVERAGE RISK 7.1 - 11.0 MODERATE RISK >11.0 HIGH RISK Performed By: #### L IPID, CMP #### [facility] [address] [address] [address] Yinka Flores Cholesterol [Mass/Vol] 251 mg/dL Critically high <=200 [facility] Comment on above: Performed By: #### L IPID, CMP #### [facility] [address] [address] [address] Yinka Flores Cholesterol in HDL [Mass/Vol] 34 mg/dL Critically low 40-60 [facility] Comment on above: Performed By: #### L IPID, CMP #### [facility] [address] [address] [address] Yinka Flores Cholesterol in LDL [Mass/Vol] 172.4 mg/dL Normal [facility] Comment on above: Performed By: #### L IPID, CMP #### [facility] [address] [address] [address] Yinka Flores Cholesterol.total/ Cholesterol in HDL [Mass ratio] 7.4 {ratio} Normal [facility] Comment on above: Performed By: #### L IPID, CMP #### [facility] [address] [address] [address] Yinka Flores HDL NORMAL > or = 60 mg/dl - LO W CARDIOVASCULAR RISK <40 mg/dl - HIGH CARDIOVASCULAR RISK Normal [facility] Comment on above: Performed By: #### L IPID, CMP #### [facility] [address] [address] [address] Yinka Flores LDL CALC NORMAL SEE BELOW Normal [facility] Comment on above: Result Comment: <100 mg/dl OPTIMAL 100 - 129 mg/dl NEAR OR ABOVE OPTIMAL 130 - 159 mg/dl BORDERLINE HIGH 160 - 189 mg/dl HIGH >190 mg/dl VERY HIGH Performed By: #### L IPID, CMP #### [facility] [address] [address] [address] Yinka Flores Triglyceride [Mass/Vol] 223 mg/dL Critically high <=150 [facility] Comment on above: Performed By: #### L IPID, CMP #### [facility] [address] [place] [address] Dr. Yinka Flores VLDL CALC 44.6 mg/dL Normal [facility] Comment on above: Performed By: #### L IPID, CMP #### [facility] [address] [address] [address] Yinka Flores MICROALBUMIN, RAND URon 07-11 mALB 2.0 mg/L Normal <=30.0 [facility] Comment on above: Performed By: #### M ALBR #### [facility] [address] [place] [address] Dr. Yinka Flores PROF 14(COMP METB)on 023 Albumin [Mass/Vol] 3.7 g/dL Normal 3.4-5.0 [facility] Comment on above: Performed By: #### L IPID, CMP #### [facility] [address] [place] [address] Dr. iYnka Flores Albumin/Globulin [Mass ratio] 0.7 {ratio} Normal [facility] Comment on above: Performed By: #### L IPID, CMP #### [facility] [address] [place] [address] Dr. Yinka Flores ALP [Catalytic activity/Vol] 179 U/L Critically high 46-116 [facility] Comment on above: Performed By: #### L IPID, CMP #### [facility] [address] [place] [address] Dr. Yinka Flores ALT [Catalytic activity/Vol] 46 U/L Normal 16-63 [facility] Comment on above: Performed By: #### L IPID, CMP #### [facility] [address] [place] [address] Dr. Yinka Flores Anion gap [Moles/Vol] 10.7 mmol/L Normal [facility] Comment on above: Performed By: #### L IPID, CMP #### [facility] [address] [address] [address] Yinka Flores AST [Catalytic activity/Vol] 29 U/L Normal 15-37 [facility] Comment on above: Performed By: #### L IPID, CMP #### [facility] [address] [address] [address] Yinka Flores Bilirubin [Mass/Vol] 0.3 mg/dL Normal 0.2-1.0 [facility] Comment on above: Performed By: #### L IPID, CMP #### [facility] [address] [address] [address] Yinka Flores Calcium [Mass/Vol] 9.4 mg/dL Normal 8.5-10.1 [facility] Comment on above: Performed By: #### L IPID, CMP #### [facility] [address] [place] [address] Dr. Yinka Flores Chloride [Moles/Vol] 100 mmol/L Normal 98-107 [facility] Comment on above: Performed By: #### L IPID, CMP #### [facility] [address] [place] [address] Dr. Yinka Flores CO2 [Moles/Vol] 29.4 mmol/L Normal 21.0-32.0 [facility] Comment on above: Performed By: #### L IPID, CMP #### [facility] [address] [place] [address] Dr. Yinak Flores Creatinine [Mass/Vol] 0.70 mg/dL Normal 0.70-1.30 [facility] Comment on above: Performed By: #### L IPID, CMP #### [facility] [address] [place] [address] Dr. Yinka Flores EGFR-AF BERMUDIAN >60 Normal >=60 [facility] Comment on above: Performed By: #### L IPID, CMP #### [facility] [address] [place] [address] Dr. Yinka Flores EGFR-NON AF BERMUDIAN >60 Normal >=60 [facility] Comment on above: Performed By: #### L IPID, CMP #### [facility] [address] [address] [address] Yinka Flores Globulin (S) [Mass/Vol] 5.1 g/dL Normal [facility] Comment on above: Performed By: #### L IPID, CMP #### [facility] [address] [address] [address] Yinka Flores Glucose [Mass/Vol] 108 mg/dL Critically high 74-106 [facility] Comment on above: Performed By: #### L IPID, CMP #### [facility] [address] [address] [address] Yinka Flores Potassium [Moles/Vol] 4.1 mmol/L Normal 3.5-5.1 [facility] Comment on above: Performed By: #### L IPID, CMP #### [facility] [address] [place] [address] Dr. Yinka Flores Protein [Mass/Vol] 8.8 g/dL Critically high 6.4-8.2 [facility] Comment on above: Performed By: #### L IPID, CMP #### [facility] [address] [address] [address] Yinka Flores Sodium [Moles/Vol] 136 mmol/L Normal 136-145 [facility] Comment on above: Performed By: #### L IPID, CMP #### [facility] [address] [place] [address] Dr. Yinka Flores Urea nitrogen [Mass/Vol] 11.0 mg/dL Normal 7.0-18.0 [facility] Comment on above: Performed By: #### L IPID, CMP #### [facility] [address] [place] [address] Dr. Yinka Flores Urea nitrogen/Creatinin e [Mass ratio] 15.7 mg/mg Normal [facility] Comment on above: Performed By: #### L IPID, CMP #### [facility] [address] [place] [address] Dr. Yinka Flores UA RANDOM W/MICROSCOPICon BACTERIA NONE SEEN Normal NONE SEEN [facility] Comment on above: Performed By: #### U AMIC #### [facility] [address] [address] [address] Yinka Flores Bilirubin Ql (U) Negative Normal NEGATIVE [facility] Comment on above: Performed By: #### U AMIC #### [facility] [address] [address] [address] Yinka Flores CAST NONE SEEN Normal NONE SEEN [facility] Comment on above: Performed By: #### U AMIC #### [facility] [address] [address] [address] Yinka Flores Clarity (U) CLEAR Normal CLEAR [facility] Comment on above: Performed By: #### U AMIC #### [facility] [address] [place] [address] Dr. Yinka Flores Color (U) LT. YELLOW Normal YELLOW [facility] Comment on above: Performed By: #### U AMIC #### [facility] [address] [address] [address] Yinka Flores Crystals LM Nom (Urine sed) NONE SEEN Normal NONE SEEN [facility] Comment on above: Performed By: #### U AMIC #### [facility] [address] [place] [address] Dr. Yinka Flores Epithelial cells LM Ql (Urine sed) NONE SEEN Normal NONE SEEN /RARE [facility] Comment on above: Performed By: #### U AMIC #### [facility] [address] [place] [address] Dr. Yinka Flores Glucose Ql (U) Negative Normal NEGATIVE [facility] Comment on above: Performed By: #### U AMIC #### [facility] [address] [address] [address] Yinka Flores Hemoglobin Ql (U) Negative Normal NEGATIVE [facility] Comment on above: Performed By: #### U AMIC #### [facility] [address] [place] [address] Dr. Yinka Flores Ketones Ql (U) Negative Normal NEGATIVE [facility] Comment on above: Performed By: #### U AMIC #### [facility] [address] [address] [address] Yinka Flores LEUKOCYTES Negative Normal NEGATIVE [facility] Comment on above: Performed By: #### U AMIC #### [facility] [address] [address] [address] Yinka Flores MUCOUS NONE SEEN Normal NONE SEEN [facility] Comment on above: Performed By: #### U AMIC #### [facility] [address] [address] [address] Yinka Flores Nitrite Ql (U) Negative Normal NEGATIVE [facility] Comment on above: Performed By: #### U AMIC #### [facility] [address] [place] [address] Dr. Yinka Flores pH (U) 6.0 [pH] Normal 5-9 [facility] Comment on above: Performed By: #### U AMIC #### [facility] [address] [place] [address] Dr. Yinka Flores RBC NONE SEEN Abnormal 0-2 [facility] Comment on above: Performed By: #### U AMIC #### [facility] [address] [place] [address] Dr. Yinka Flores SPEC GRAVITY <=1.005 Abnormal 1.005-<=1.02 5 [facility] Comment on above: Performed By: #### U AMIC #### [facility] [address] [place] [address] Dr. Yinka Flores UA PROTEIN Negative Normal NEGATIVE/ TRACE [facility] Comment on above: Performed By: #### U AMIC #### [facility] [address] [place] [address] Dr. Yinka Flores Urobilinogen Qn (U) 0.2 {Richi'U}/dL Normal 0.2 - 1.0 [facility] Comment on above: Performed By: #### U AMIC #### [facility] [address] [place] [address] Dr. Yinka Flores WBC NONE SEEN Normal NONE SEEN [facility] Comment on above: Performed By: #### U AMIC #### [facility] [address] [address] [address] Yinka Flores HEMOGLOBIN A1C (POC)on 07-15 HbA1c (Bld) [Mass fraction] 9.1 % Abnormal 4.2 - 5.6 % [facility] HEMOGLOBIN A1C (POC)on 03-19 HbA1c (Bld) [Mass fraction] 9.6 % Abnormal 4.2 - 5.6 % [facility] CBC AUTO DIFFon 11-21-2021 BASO # 0.1 103/ul Normal 0.0-0.1 [facility] Comment on above: Performed By: #### A 1C #### [facility] [address] [address] [address] Yinka Flores Basophils/100 WBC (Bld) 0.7 % Normal 0.2-2.0 [facility] Comment on above: Performed By: #### A 1C #### [facility] [address] [place] [address] Dr. Yinka Flores EO # 0.4 103/ul Normal 0.0-0.7 [facility] Comment on above: Performed By: #### A 1C #### [facility] [address] [address] [address] Yinka Flores Eosinophils/100 WBC (Bld) 4.0 % Normal 0.9-7.0 [facility] Comment on above: Performed By: #### A 1C #### [facility] [address] [place] [address] Dr. Yinka Flores Erythrocyte distribution width (RBC) [Ratio] 14.5 % Normal 11.0-15.0 [facility] Comment on above: Performed By: #### A 1C #### [facility] [address] [place] [address] Dr. Yinka Flores Hematocrit (Bld) [Volume fraction] 45.0 % Normal 42.0-54.0 [facility] Comment on above: Performed By: #### A 1C #### [facility] [address] [place] [address] Dr. Yinka Flores Hemoglobin (Bld) [Mass/Vol] 15.0 g/dL Normal 14.0-18.0 [facility] Comment on above: Performed By: #### A 1C #### [facility] [address] [address] [address] Yinka Flores IG # 0.06 10e3/ul Critically high 0.00-0.03 [facility] Comment on above: Performed By: #### A 1C #### [facility] [facility] [address] [address] [address] Yinka Flores IG % 0.6 % Critically high 0.0-0.5 [facility] Comment on above: Performed By: #### A 1C #### [facility] [address] [place] [address] Dr. Yinka Flores LYMPH # 2.1 103/ul Normal 1.2-3.8 [facility] Comment on above: Performed By: #### A 1C #### [facility] [address] [place] [address] Dr. Yinka Flores Lymphocytes/100 WBC (Bld) 19.6 % Critically low 20.5-60.0 [facility] Comment on above: Performed By: #### A 1C #### [facility] [address] [place] [address] Dr. Yinka Flores MANUAL DIFF REQ NO Normal [facility] Comment on above: Performed By: #### A 1C #### [facility] [address] [place] [address] Dr. Yinka Flores MCH (RBC) [Entitic mass] 26.1 pg Normal 25.9-34.0 [facility] Comment on above: Performed By: #### A 1C #### [facility] [address] [place] [address] Dr. Yinka Flores MCHC (RBC) [Mass/Vol] 33.3 g/dL Normal 29.9-35.2 [facility] Comment on above: Performed By: #### A 1C #### [facility] [address] [place] [address] Dr. Yinka Flores MCV (RBC) [Entitic vol] 78.3 fL Critically low 80.0-94.0 [facility] Comment on above: Performed By: #### A 1C #### [facility] [address] [place] [address] Dr. Yinka Flores MONO # 0.8 103/ul Normal 0.3-0.8 [facility] Comment on above: Performed By: #### A 1C #### [facility] [address] [place] [address] Dr. Yinka Flores Monocytes/100 WBC (Bld) 7.6 % Normal 1.7-12.0 [facility] Comment on above: Performed By: #### A 1C #### [facility] [address] [place] [address] Dr. Yinka Flores NEUT # 7.1 103/ul Critically high 1.4-6.5 [facility] Comment on above: Performed By: #### A 1C #### [facility] [address] [place] [address] Dr. Yinka Flores Neutrophils/100 WBC (Bld) 67.5 % Normal 43.0-75.0 [facility] Comment on above: Performed By: #### A 1C #### [facility] [address] [place] [address] Dr. Yinka Flores Platelet mean volume (Bld) [Entitic vol] 10.0 fL Normal 9.5-13.5 [facility] Comment on above: Performed By: #### A 1C #### [facility] [address] [place] [address] Dr. Yinka Flores PLT 256 103/ul Normal 150-450 [facility] Comment on above: Performed By: #### A 1C #### [facility] [address] [place] [address] Dr. Yinka Flores RBC 5.75 106/ul Normal 4.70-6.10 [facility] Comment on above: Performed By: #### A 1C #### [facility] [address] [place] [address] Dr. Yinka Flores WBC 10.5 103/ul Normal 4.0-11.0 [facility] Comment on above: Performed By: #### A 1C #### [facility] [address] [address] [address] ABD/PELVIS WO CONon 11-21 CT ABD/PELVIS WO CON EXAMINATION: CT ABD/PELVIS WO CON HISTORY: UNSPECIFIED ABDOMINAL PAIN ; right side abdominal pain COMPARISON: CT abdomen and pelvis 10/04/2011 TECHNIQUE: Axial, Coronal, and Sagittal images were created without IV contrast. Dose reduction techniques were achieved by using automated exposure control and/or adjustment of mA and/or kV according to patient size and/or use of iterative reconstruction technique. FINDINGS: LUNG BASES: No visible pulmonary or pleural disease. LIVER: No enlargement, atrophy, suspicious density, or significant focal lesion. BILIARY: Cholecystectomy. PANCREAS: No lesion, fluid collection, or abnormal duct dilatation. SPLEEN: No enlargement or focal lesion. ADRENALS: No mass or enlargement. KIDNEYS: A few renal cysts favoring benign etiology; also seen on prior study. No mass, obstruction, or calcification. BOWEL/MESENTERY: No visible mass, obstruction, or bowel wall thickening. Normal appendix. AORTA/VASCULAR: No aneurysm or dissection. RETROPERITONEUM: No mass or adenopathy. LYMPH NODES: No adenopathy. URINARY BLADDER: No visible focal wall thickening, lesion, or calculus. PELVIC ORGANS: No visible mass. Pelvic organs appropriate for patient age. ABDOMINAL WALL: Small fat filled umbilical hernia without strangulation. BONES: Posterior mechanical fusion L4-L5. Marked degenerative disc disease L4-L5, L5-S1. OTHER: Negative. IMPRESSION: 1. No acute or suspicious findings to account for patient's abdominal pain. Electronically authenticated by: SHANEL GOMEZ Date: 2021-11-21 17:00 Normal [facility] URINE PROFILEon 2 Bilirubin Ql (U) Negative Normal NEGATIVE [facility] Comment on above: Performed By: #### M ALBR #### [facility] [address] [address] [address] Yinka Flores Clarity (U) CLEAR Normal CLEAR [facility] Comment on above: Performed By: #### M ALBR #### [facility] [address] [address] [address] Yinka Flores Color (U) YELLOW Normal YELLOW [facility] Comment on above: Performed By: #### M ALBR #### [facility] [address] [address] [address] Yinka CAMEJO A micrscopic examina tion will be performed if indicated. Normal [facility] Comment on above: Performed By: #### M ALBR #### [facility] [address] [address] [address] Yinka Flores Glucose Ql (U) 1000 mg/dl Abnormal NEGATIVE [facility] Comment on above: Performed By: #### M ALBR #### [facility] [address] [address] [address] Yinka Flores Hemoglobin Ql (U) Negative Normal NEGATIVE [facility] Comment on above: Performed By: #### M ALBR #### [facility] [address] [place] [address] Dr. Yinka Flores Ketones Ql (U) Negative Normal NEGATIVE [facility] Comment on above: Performed By: #### M ALBR #### [facility] [address] [place] [address] Dr. Yinka Flores LEUKOCYTES Negative Normal NEGATIVE [facility] Comment on above: Performed By: #### M ALBR #### [facility] [address] [address] [address] Yinka Flores Nitrite Ql (U) Negative Normal NEGATIVE [facility] Comment on above: Performed By: #### M ALBR #### [facility] [address] [place] [address] Dr. Yinka Flores pH (U) 5.0 [pH] Normal 5-9 [facility] Comment on above: Performed By: #### M ALBR #### [facility] [address] [place] [address] Dr. Yinka Flores SPEC GRAVITY 1.020 Normal 1.005-<=1.02 5 [facility] Comment on above: Performed By: #### M ALBR #### [facility] [address] [place] [address] Dr. Yinka Flores UA PROTEIN Negative Normal NEGATIVE/ TRACE [facility] Comment on above: Performed By: #### M ALBR #### [facility] [address] [place] [address] Dr. Yinka Flores UR MICRO IND NOT INDICATED Normal [facility] Comment on above: Performed By: #### M ALBR #### [facility] [address] [place] [address] Dr. Yinka Flores Urobilinogen Qn (U) 0.2 {Richi'U}/dL Normal 0.2 - 1.0 [facility] Comment on above: Performed By: #### M ALBR #### [facility] [address] [place] [address] Dr. Yinka Flores LACTATE/LACTIC ACIDon 2021 Lactate [Moles/Vol] 1.4 mmol/L Normal 0.4-1.9 [facility] Comment on above: Performed By: #### L ACT #### [facility] [address] [place] [address] Dr. Yinka Flores LIPASEon 11-21-2021 Lipase [Catalytic activity/Vol] 262.0 U/L Normal 73.0-393.0 [facility] Comment on above: Performed By: #### M ALBR #### [facility] [address] [place] [address] Dr. Yinka Flores PROF 14(COMP METB)on 022 Albumin [Mass/Vol] 3.3 g/dL Critically low 3.4-5.0 [facility] Comment on above: Performed By: #### M ALBR #### [facility] [address] [place] [address] Dr. Yinka Flores Albumin/Globulin [Mass ratio] 0.7 {ratio} Normal [facility] Comment on above: Performed By: #### M ALBR #### [facility] [address] [place] [address] Dr. Yinka Flores ALP [Catalytic activity/Vol] 187 U/L Critically high 46-116 [facility] Comment on above: Performed By: #### M ALBR #### [facility] [address] [place] [address] Dr. Yinka Flores ALT [Catalytic activity/Vol] 50 U/L Normal 16-63 [facility] Comment on above: Performed By: #### M ALBR #### [facility] [address] [address] [address] Yinka Flores Anion gap [Moles/Vol] 11.5 mmol/L Normal [facility] Comment on above: Performed By: #### M ALBR #### [facility] [address] [address] [address] Yinka Flores AST [Catalytic activity/Vol] 33 U/L Normal 15-37 [facility] Comment on above: Performed By: #### M ALBR #### [facility] [address] [address] [address] Yinka Flores Bilirubin [Mass/Vol] 0.4 mg/dL Normal 0.2-1.0 [facility] Comment on above: Performed By: #### M ALBR #### [facility] [address] [place] [address] Dr. Yinka Flores Calcium [Mass/Vol] 8.8 mg/dL Normal 8.5-10.1 [facility] Comment on above: Performed By: #### M ALBR #### [facility] [address] [address] [address] Yinka Flores Chloride [Moles/Vol] 100 mmol/L Normal 98-107 [facility] Comment on above: Performed By: #### M ALBR #### [facility] [address] [address] [address] Yinka Flores CO2 [Moles/Vol] 26.7 mmol/L Normal 21.0-32.0 [facility] Comment on above: Performed By: #### M ALBR #### [facility] [address] [address] [address] Yinka Flores Creatinine [Mass/Vol] 0.91 mg/dL Normal 0.70-1.30 [facility] Comment on above: Performed By: #### M ALBR #### [facility] [address] [address] [address] Yinka Flores EGFR-AF BERMUDIAN >60 Normal >=60 [facility] Comment on above: Performed By: #### M ALBR #### [facility] [address] [address] [address] Yinka Flores EGFR-NON AF BERMUDIAN >60 Normal >=60 [facility] Comment on above: Performed By: #### M ALBR #### [facility] [address] [address] [address] Yinka Flores Globulin (S) [Mass/Vol] 5.0 g/dL Normal [facility] Comment on above: Performed By: #### M ALBR #### [facility] [address] [address] [address] Yinka Flores Glucose [Mass/Vol] 379 mg/dL Critically high 74-106 [facility] Comment on above: Performed By: #### M ALBR #### [facility] [address] [place] [address] Dr. Yinka Flores Potassium [Moles/Vol] 4.2 mmol/L Normal 3.5-5.1 [facility] Comment on above: Performed By: #### M ALBR #### [facility] [address] [address] [address] Yinka Flores Protein [Mass/Vol] 8.3 g/dL Critically high 6.4-8.2 [facility] Comment on above: Performed By: #### M ALBR #### [facility] [address] [place] [address] Dr. Yinka Flores Sodium [Moles/Vol] 134 mmol/L Critically low 136-145 [facility] Comment on above: Performed By: #### M ALBR #### [facility] [address] [address] [address] Yinka Flores Urea nitrogen [Mass/Vol] 19.0 mg/dL Critically high 7.0-18.0 [facility] Comment on above: Performed By: #### M ALBR #### [facility] [address] [place] [address] Dr. Yinka Flores Urea nitrogen/Creatinin e [Mass ratio] 20.9 mg/mg Normal [facility] Comment on above: Performed By: #### M ALBR #### [facility] [address] [place] [address] Dr. Yinka Flores PROTIMEon 11-21-2021 INR Coag (PPP) [Relative time] 1.01 {INR} Normal [facility] Comment on above: Performed By: #### M ALBR #### [facility] [address] [place] [address] Dr. Yinka Flores INR GUIDELINES SEE BELOW Normal [facility] Comment on above: Result Comment: JAMEE RED INR: 2.0 - 3.0 CONDITIONS NOT LISTED BELOW 2.5 - 3.5 FOR PROSTHETIC HEART VALVE REPLACEMENT 2.5 - 3.5 RECURRENT THROMBOSIS Performed By: #### M ALBR #### [facility] [address] [place] [address] Dr. Yinak Flores PT Coag (PPP) [Time] 10.9 s Normal 9.0-11.6 [facility] Comment on above: Performed By: #### M ALBR #### [facility] [address] [place] [address] Dr. Yinka Flores PTTon 11-21-2021 aPTT Coag (Bld) [Time] 26.2 s Normal 22.3-36.2 [facility] Comment on above: Performed By: #### M ALBR #### [facility] [address] [place] [address] Dr. Yinka Flores CBC AUTO DIFFon 09-05-2021 BASO # 0.1 103/ul Normal 0.0-0.1 [facility] Comment on above: Performed By: #### C BC #### [facility] [address] [place] [address] Dr. Yinka Flores Basophils/100 WBC (Bld) 0.7 % Normal 0.2-2.0 [facility] Comment on above: Performed By: #### C BC #### [facility] [address] [place] [address] Dr. Yinka Flores EO # 0.4 103/ul Normal 0.0-0.7 [facility] Comment on above: Performed By: #### C BC #### [facility] [address] [place] [address] Dr. Yinka Flores Eosinophils/100 WBC (Bld) 4.9 % Normal 0.9-7.0 [facility] Comment on above: Performed By: #### C BC #### [facility] [address] [place] [address] Dr. Yinka Flores Erythrocyte distribution width (RBC) [Ratio] 14.4 % Normal 11.0-15.0 [facility] Comment on above: Performed By: #### C BC #### [facility] [address] [place] [address] Dr. Yinka Flores Hematocrit (Bld) [Volume fraction] 43.5 % Normal 42.0-54.0 [facility] Comment on above: Performed By: #### C BC #### [facility] [address] [place] [address] Dr. Yinka Flores Hemoglobin (Bld) [Mass/Vol] 14.4 g/dL Normal 14.0-18.0 [facility] Comment on above: Performed By: #### C BC #### [facility] [address] [place] [address] Dr. Yinka Flores IG # 0.03 10e3/ul Normal 0.00-0.03 [facility] Comment on above: Performed By: #### C BC #### [facility] [address] [place] [address] Dr. Yinka Flores IG % 0.4 % Normal 0.0-0.5 [facility] Comment on above: Performed By: #### C BC #### [facility] [address] [place] [address] Dr. Yinka Flores LYMPH # 1.9 103/ul Normal 1.2-3.8 [facility] Comment on above: Performed By: #### C BC #### [facility] [address] [place] [address] Dr. Yinka Flores Lymphocytes/100 WBC (Bld) 23.5 % Normal 20.5-60.0 [facility] Comment on above: Performed By: #### C BC #### [facility] [address] [place] [address] Dr. Yinka Flores MANUAL DIFF REQ NO Normal [facility] Comment on above: Performed By: #### C BC #### [facility] [address] [place] [address] Dr. Yinka Flores MCH (RBC) [Entitic mass] 26.3 pg Normal 25.9-34.0 [facility] Comment on above: Performed By: #### C BC #### [facility] [address] [place] [address] Dr. Yinka Flores MCHC (RBC) [Mass/Vol] 33.1 g/dL Normal 29.9-35.2 [facility] Comment on above: Performed By: #### C BC #### [facility] [address] [place] [address] Dr. Yinka Flores MCV (RBC) [Entitic vol] 79.5 fL Critically low 80.0-94.0 [facility] Comment on above: Performed By: #### C BC #### [facility] [address] [place] [address] Dr. Yinka Flores MONO # 0.6 103/ul Normal 0.3-0.8 [facility] Comment on above: Performed By: #### C BC #### [facility] [address] [place] [address] Dr. Yinka Flores Monocytes/100 WBC (Bld) 7.0 % Normal 1.7-12.0 [facility] Comment on above: Performed By: #### C BC #### [facility] [address] [place] [address] Dr. Yinka Flores NEUT # 5.2 103/ul Normal 1.4-6.5 [facility] Comment on above: Performed By: #### C BC #### [facility] [address] [place] [address] Dr. Yinka Flores Neutrophils/100 WBC (Bld) 63.5 % Normal 43.0-75.0 [facility] Comment on above: Performed By: #### C BC #### [facility] [address] [place] [address] Dr. Yinka Flores Platelet mean volume (Bld) [Entitic vol] 11.0 fL Normal 9.5-13.5 [facility] Comment on above: Performed By: #### C BC #### [facility] [address] [place] [address] Dr. Yinka Flores PLT 263 103/ul Normal 150-450 [facility] Comment on above: Performed By: #### C BC #### [facility] [address] [place] [address] Dr. Yinka Flores RBC 5.47 106/ul Normal 4.70-6.10 [facility] Comment on above: Performed By: #### C BC #### [facility] [address] [place] [address] Dr. Yinka Flores WBC 8.1 103/ul Normal 4.0-11.0 [facility] Comment on above: Performed By: #### C BC #### [facility] [address] [place] [address] Dr. Yinka Flores GLYCOHEMOGLOBIN A1Con 2021 ADA RECOMMENDATION ADA THERAPEUTIC TARG ET 6.0 - 7.0 ACTION SUGGESTED > 7.0 Normal [facility] Comment on above: Performed By: #### A 1C #### [facility] [address] [place] [address] Dr. Yinka Flores Glucose [Mass/Vol] 272 mg/dL Normal [facility] Comment on above: Performed By: #### A 1C #### [facility] [address] [place] [address] Dr. Yinka Flores HbA1c (Bld) [Mass fraction] 11.1 % Critically high <=6.0 [facility] Comment on above: Performed By: #### A 1C #### [facility] [address] [place] [address] Dr. Yinka Flores LIPID PROFILEon 09-05-2021 CHOL-HDL RATIO NORM SEE BELOW Normal [facility] Comment on above: Result Comment: 3.3 - 4.4 LOW RISK 4.4 - 7.1 AVERAGE RISK 7.1 - 11.0 MODERATE RISK >11.0 HIGH RISK Performed By: #### M ALBR #### [facility] [address] [address] [address] Yinka Flores Cholesterol [Mass/Vol] 218 mg/dL Critically high <=200 [facility] Comment on above: Performed By: #### M ALBR #### [facility] [address] [id number] Yinka Flores Cholesterol in HDL [Mass/Vol] 34 mg/dL Critically low 40-60 [facility] Comment on above: Performed By: #### M ALBR #### [facility] [address] [address] [address] Yinka Flores Cholesterol in LDL [Mass/Vol] 111.0 mg/dL Normal [facility] Comment on above: Performed By: #### M ALBR #### [facility] [address] [address] [address] Yinka Flores Cholesterol.total/ Cholesterol in HDL [Mass ratio] 6.4 {ratio} Normal [facility] Comment on above: Performed By: #### M ALBR #### [facility] [address] [address] [address] Yinka Flores HDL NORMAL > or = 60 mg/dl - LO W CARDIOVASCULAR RISK <40 mg/dl - HIGH CARDIOVASCULAR RISK Normal [facility] Comment on above: Performed By: #### M ALBR #### [facility] [address] [address] [address] Yinka Flores LDL CALC NORMAL SEE BELOW Normal [facility] Comment on above: Result Comment: <100 mg/dl OPTIMAL 100 - 129 mg/dl NEAR OR ABOVE OPTIMAL 130 - 159 mg/dl BORDERLINE HIGH 160 - 189 mg/dl HIGH >190 mg/dl VERY HIGH Performed By: #### M ALBR #### [facility] [address] [address] [address] Yinka Flores Triglyceride [Mass/Vol] 365 mg/dL Critically high <=150 [facility] Comment on above: Performed By: #### M ALBR #### [facility] [address] [address] [address] Yinka Flores VLDL CALC 73.0 mg/dL Normal [facility] Comment on above: Performed By: #### M ALBR #### [facility] [address] [place] [address] Dr. Yinka Flores MICROALBUMIN, RAND URon 08-09 mALB 2.4 mg/L Normal <=30.0 [facility] Comment on above: Performed By: #### M ALBR #### [facility] [address] [place] [address] Dr. Yinka Flores PROF 14(COMP METB)on 022 Albumin [Mass/Vol] 3.5 g/dL Normal 3.4-5.0 [facility] Comment on above: Performed By: #### M ALBR #### [facility] [address] [place] [address] Dr. Yinka Flores Albumin/Globulin [Mass ratio] 0.7 {ratio} Normal [facility] Comment on above: Performed By: #### M ALBR #### [facility] [address] [place] [address] Dr. Yinka Flores ALP [Catalytic activity/Vol] 176 U/L Critically high 46-116 [facility] Comment on above: Performed By: #### M ALBR #### [facility] [address] [place] [address] Dr. Yinka Flores ALT [Catalytic activity/Vol] 48 U/L Normal 16-63 [facility] Comment on above: Performed By: #### M ALBR #### [facility] [address] [place] [address] Dr. Yinka Flores Anion gap [Moles/Vol] 12.8 mmol/L Normal [facility] Comment on above: Performed By: #### M ALBR #### [facility] [address] [place] [address] Dr. Yinka Flores AST [Catalytic activity/Vol] 19 U/L Normal 15-37 [facility] Comment on above: Performed By: #### M ALBR #### [facility] [address] [place] [address] Dr. Yinka Flores Bilirubin [Mass/Vol] 0.4 mg/dL Normal 0.2-1.3 [facility] Comment on above: Performed By: #### M ALBR #### [facility] [address] [place] [address] Dr. Yinka Flores Calcium [Mass/Vol] 8.8 mg/dL Normal 8.5-10.1 [facility] Comment on above: Performed By: #### M ALBR #### [facility] [address] [place] [address] Dr. Yinka Flores Chloride [Moles/Vol] 99 mmol/L Normal 98-107 [facility] Comment on above: Performed By: #### M ALBR #### [facility] [address] [place] [address] Dr. Yinka Flores CO2 [Moles/Vol] 25.3 mmol/L Normal 22.0-30.0 [facility] Comment on above: Performed By: #### M ALBR #### [facility] [address] [place] [address] Dr. Yinka Flores Creatinine [Mass/Vol] 0.71 mg/dL Normal 0.66-1.25 [facility] Comment on above: Performed By: #### M ALBR #### [facility] [address] [place] [address] Dr. Yinka Flores EGFR-AF BERMUDIAN >60 Normal >=60 [facility] Comment on above: Performed By: #### M ALBR #### [facility] Laboratory [address] [place] [address] Dr. Yinka Flores EGFR-NON AF BERMUDIAN >60 Normal >=60 [facility] Comment on above: Performed By: #### M ALBR #### [facility] [address] [place] [address] Dr. Yinka Flores Globulin (S) [Mass/Vol] 4.9 g/dL Normal [facility] Comment on above: Performed By: #### M ALBR #### [facility] [address] [place] [address] Dr. Yinka Flores Glucose [Mass/Vol] 394 mg/dL Critically high 74-106 T [facility] Comment on above: Performed By: #### M ALBR #### [facility] [address] [address] [address] Yinka Flores Potassium [Moles/Vol] 4.1 mmol/L Normal 3.4-5.0 [facility] Comment on above: Performed By: #### M ALBR #### [facility] [address] [address] [address] Yinka Flores Protein [Mass/Vol] 8.4 g/dL Critically high 6.1-8.2 [facility] Comment on above: Performed By: #### M ALBR #### [facility] [address] [address] [address] Yinka Flores Sodium [Moles/Vol] 133 mmol/L Critically low 137-145 Th [facility] Comment on above: Performed By: #### M ALBR #### [facility] [address] [place] [address] Dr. Yinka Flores Urea nitrogen [Mass/Vol] 12.0 mg/dL Normal 7.0-18.0 [facility] Comment on above: Performed By: #### M ALBR #### [facility] [address] [place] [address] Dr. Yinka Flores Urea nitrogen/Creatinin e [Mass ratio] 16.9 mg/mg Normal [facility] Comment on above: Performed By: #### M ALBR #### [facility] [address] [place] [address] Dr. Yinka Flores UA RANDOM W/MICROSCOPICon BACTERIA NONE SEEN Normal NONE SEEN [facility] Comment on above: Performed By: #### U AMIC #### [facility] [address] [place] [address] Dr. Yinka Flores Bilirubin Ql (U) Negative Normal NEGATIVE [facility] Comment on above: Performed By: #### U AMIC #### [facility] [address] [place] [address] Dr. Yinka Flores CAST NONE SEEN Normal NONE SEEN [facility] Comment on above: Performed By: #### U AMIC #### [facility] [address] [address] [address] Yinka Flores Clarity (U) CLEAR Normal CLEAR [facility] Comment on above: Performed By: #### U AMIC #### [facility] [address] [address] [address] Yinka Flores Color (U) LT. YELLOW Normal YELLOW [facility] Comment on above: Performed By: #### U AMIC #### [facility] [address] [place] [address] Dr. Yinka Flores Crystals LM Nom (Urine sed) NONE SEEN Normal NONE SEEN [facility] Comment on above: Performed By: #### U AMIC #### [facility] [address] [place] [address] Dr. Yinka Flores Epithelial cells LM Ql (Urine sed) RARE Normal NONE SEEN /RARE The [facility] Comment on above: Performed By: #### U AMIC #### [facility] [address] [place] [address] Dr. Yinka Flores Glucose Ql (U) >1000 Abnormal NEGATIVE [facility] Comment on above: Performed By: #### U AMIC #### [facility] [address] [place] [address] Dr. Yinka Flores Hemoglobin Ql (U) Negative Normal NEGATIVE [facility] Comment on above: Performed By: #### U AMIC #### [facility] [address] [place] [address] Dr. Yinka Flores Ketones Ql (U) TRACE Abnormal NEGATIVE [facility] Comment on above: Performed By: #### U AMIC #### [facility] [address] [place] [address] Dr. Yinka Flores LEUKOCYTES Negative Normal NEGATIVE [facility] Comment on above: Performed By: #### U AMIC #### [facility] [address] [place] [address] Dr. Yinka Flores MUCOUS NONE SEEN Normal NONE SEEN [facility] Comment on above: Performed By: #### U AMIC #### [facility] [address] [place] [address] Dr. Yinka Flores Nitrite Ql (U) Negative Normal NEGATIVE [facility] Comment on above: Performed By: #### U AMIC #### [facility] [address] [address] [address] Yinka Flores pH (U) 5.5 [pH] Normal 5-9 [facility] Comment on above: Performed By: #### U AMIC #### [facility] [address] [place] [address] Dr. Yinka Flores RBC 0-2 Normal 0-2 [facility] Comment on above: Performed By: #### U AMIC #### [facility] [address] [place] [address] Dr. Yinka Flores SPEC GRAVITY 1.010 Normal 1.005-<=1.02 5 [facility] Comment on above: Performed By: #### U AMIC #### [facility] [address] [place] [address] Dr. Yinka Flores UA PROTEIN Negative Normal NEGATIVE/ TRACE The [facility] Comment on above: Performed By: #### U AMIC #### [facility] [address] [place] [address] Dr. Yinka Flores Urobilinogen Qn (U) 0.2 {Richi'U}/dL Normal 0.2 - 1.0 [facility] Comment on above: Performed By: #### U AMIC #### [facility] [address] [place] [address] Dr. Yinka Flores WBC NONE SEEN Normal NONE SEEN The [facility] Comment on above: Performed By: #### U AMIC #### [facility] [address] [place] [address] Dr. Yinka Flores ECHOon 09-03-2021 [facility] LVEF TRANSTHORACIC ECHOon LV Ejection Fraction 61 % [facility] Vital Signs Date Time Vital Sign Value Performing Clinician Faci lity 08-29-2023 07:50-0400 Body weight 122 kg Kylee Dalal APRN.POLYSOMNOGRAPHY TECHNOLOGIST Work Phone: [facility] 08-29-2023 07:50-0400 Diastolic blood pressure 62 mm[Hg] Kylee Dalal APRN.POLYSOMNOGRAPHY TECHNOLOGIST Work Phone: [facility] 08-29-2023 07:50-0400 Heart rate 61 /min Kylee Dalal WASTE RECLAIMER.POLYSOMNOGRAPHY TECHNOLOGIST Work Phone: [facility] 08-29-2023 07:50-0400 SaO2% (BldA) [Mass fraction] 97 % Kylee Dalal WASTE RECLAIMER.POLYSOMNOGRAPHY TECHNOLOGIST Work Phone: [facility] 08-29-2023 07:50-0400 Systolic blood pressure 120 mm[Hg] Kylee Dalal WASTE RECLAIMER.POLYSOMNOGRAPHY TECHNOLOGIST Work Phone: [facility] 07-09-2023 14:48-0500 Body temperature 97.59 [degF] William Howell MD, PhD Work Phone: [facility] 07-09-2023 14:48-0500 Body weight 124.9 kg William Howell MD, PhD Work Phone: [facility] 07-09-2023 14:48-0500 Diastolic blood pressure 73 mm[Hg] William Howell MD, PhD Work Phone: [facility] 07-09-2023 14:48-0500 Heart rate 71 /min William Howell MD, PhD Work Phone: [facility] 07-09-2023 14:48-0500 Respiratory rate 18 /min William Howell MD, PhD Work Phone: [facility] 07-09-2023 14:48-0500 SaO2% (BldA) [Mass fraction] 94 % William Howell MD, PhD Work Phone: [facility] 07-09-2023 14:48-0500 Systolic blood pressure 156 mm[Hg] William Howell MD, PhD Work Phone: [facility] 04-16-2023 11:49-0500 Body height 177.8 cm William Howell MD, PhD Work Phone: [facility] 04-16-2023 11:49-0500 Body temperature 97.81 [degF] William Howell MD, PhD Work Phone: [facility] 04-16-2023 11:49-0500 Body weight 126.1 kg William Howell MD, PhD Work Phone: [facility] 04-16-2023 11:49-0500 Diastolic blood pressure 89 mm[Hg] William Howell MD, PhD Work Phone: [facility] 04-16-2023 11:49-0500 Heart rate 74 /min William Howell MD, PhD Work Phone: [facility] 04-16-2023 11:49-0500 Respiratory rate 14 /min William Howell MD, PhD Work Phone: [facility] 04-16-2023 11:49-0500 SaO2% (BldA) [Mass fraction] 99 % William Howell MD, PhD Work Phone: [facility] 04-16-2023 11:49-0500 Systolic blood pressure 161 mm[Hg] William Howell MD, PhD Work Phone: [facility] 01-22-2023 09:32-0400 Body temperature 97.39 [degF] William Howell MD, PhD Work Phone: [facility] 01-22-2023 09:32-0400 Body weight 124.74 kg William Howell MD, PhD Work Phone: [facility] 01-22-2023 09:32-0400 Diastolic blood pressure 82 mm[Hg] William Howell MD, PhD Work Phone: [facility] 01-22-2023 09:32-0400 Heart rate 82 /min William Howell MD, PhD Work Phone: [facility] 01-22-2023 09:32-0400 Respiratory rate 18 /min William Howell MD, PhD Work Phone: [facility] 01-22-2023 09:32-0400 SaO2% (BldA) [Mass fraction] 99 % William Howell MD, PhD Work Phone: [facility] 01-22-2023 09:32-0400 Systolic blood pressure 151 mm[Hg] William Howell MD, PhD Work Phone: [facility] 10-30-2022 11:46-0400 Body temperature 98.4 [degF] William Howell MD, PhD Work Phone: [facility] 10-30-2022 11:46-0400 Body weight 124.29 kg William Howell MD, PhD Work Phone: [facility] 10-30-2022 11:46-0400 Diastolic blood pressure 78 mm[Hg] William Howell MD, PhD Work Phone: [facility] 10-30-2022 11:46-0400 Heart rate 61 /min William Howell MD, PhD Work Phone: [facility] 10-30-2022 11:46-0400 Respiratory rate 18 /min William Howell MD, PhD Work Phone: [facility] 10-30-2022 11:46-0400 SaO2% (BldA) [Mass fraction] 98 % William Howell MD, PhD Work Phone: [facility] 10-30-2022 11:46-0400 Systolic blood pressure 173 mm[Hg] William Howell MD, PhD Work Phone: [facility] 10-15-2022 13:44-0400 Body height 179.1 cm Kylee Dalal APRN.CNP Work Phone: [facility] 10-15-2022 13:44-0400 Body weight 124.29 kg Kylee Dalal WASTE RECLAIMER.POLYSOMNOGRAPHY TECHNOLOGIST Work Phone: [facility] 10-15-2022 13:44-0400 Diastolic blood pressure 78 mm[Hg] Kylee Dalal WASTE RECLAIMER.POLYSOMNOGRAPHY TECHNOLOGIST Work Phone: [facility] 10-15-2022 13:44-0400 Heart rate 72 /min Kylee Dalal WASTE RECLAIMER.POLYSOMNOGRAPHY TECHNOLOGIST Work Phone: [facility] 10-15-2022 13:44-0400 Systolic blood pressure 134 mm[Hg] Kylee Dalal WASTE RECLAIMER.POLYSOMNOGRAPHY TECHNOLOGIST Work Phone: [facility] 08-05-2022 09:38-0500 Body height 177.8 cm William Howell MD, PhD Work Phone: [facility] 08-05-2022 09:38-0500 Body temperature 98.1 [degF] William Howell MD, PhD Work Phone: [facility] 08-05-2022 09:38-0500 Body weight 126.1 kg William Howell MD, PhD Work Phone: [facility] 08-05-2022 09:38-0500 Diastolic blood pressure 85 mm[Hg] William Howell MD, PhD Work Phone: [facility] 08-05-2022 09:38-0500 Heart rate 62 /min William Howell MD, PhD Work Phone: [facility] 08-05-2022 09:38-0500 Respiratory rate 16 /min William Howell MD, PhD Work Phone: [facility] 08-05-2022 09:38-0500 SaO2% (BldA) [Mass fraction] 97 % William Howell MD, PhD Work Phone: [facility] 08-05-2022 09:38-0500 Systolic blood pressure 170 mm[Hg] William Howell MD, PhD Work Phone: [facility] 07-15-2022 15:50-0500 Body weight 128.82 kg Kylee Mulugeta WASTE RECLAIMER.POLYSOMNOGRAPHY TECHNOLOGIST Work Phone: [facility] 07-15-2022 15:50-0500 Diastolic blood pressure 80 mm[Hg] Kylee Mulugeta WASTE RECLAIMER.POLYSOMNOGRAPHY TECHNOLOGIST Work Phone: [facility] 07-15-2022 15:50-0500 Heart rate 72 /min Kylee Mulugeta WASTE RECLAIMER.POLYSOMNOGRAPHY TECHNOLOGIST Work Phone: [facility] 07-15-2022 15:50-0500 Systolic blood pressure 160 mm[Hg] Kylee Mulugeta WASTE RECLAIMER.POLYSOMNOGRAPHY TECHNOLOGIST Work Phone: [facility] 03-19-2022 12:08-0400 Body weight 120.66 kg Kylee Mulugeta WASTE RECLAIMER.POLYSOMNOGRAPHY TECHNOLOGIST Work Phone: [facility] 03-19-2022 12:08-0400 Diastolic blood pressure 90 mm[Hg] Kylee Mulugeta WASTE RECLAIMER.POLYSOMNOGRAPHY TECHNOLOGIST Work Phone: [facility] 03-19-2022 12:08-0400 Heart rate 68 /min Kylee Mulugeta WASTE RECLAIMER.POLYSOMNOGRAPHY TECHNOLOGIST Work Phone: [facility] 03-19-2022 12:08-0400 Systolic blood pressure 150 mm[Hg] Kylee Mulugeta WASTE RECLAIMER.POLYSOMNOGRAPHY TECHNOLOGIST Work Phone: [facility] 02-18-2022 11:11-0400 Body height 178.5 cm William Howell MD, PhD Work Phone: [facility] 02-18-2022 11:11-0400 Body temperature 97.5 [degF] William Howell MD, PhD Work Phone: [facility] 02-18-2022 11:11-0400 Body weight 121.75 kg William Howell MD, PhD Work Phone: [facility] 02-18-2022 11:11-0400 Diastolic blood pressure 93 mm[Hg] William Howell MD, PhD Work Phone: [facility] 02-18-2022 11:11-0400 Heart rate 62 /min William Howell MD, PhD Work Phone: [facility] 02-18-2022 11:11-0400 Respiratory rate 20 /min William Howell MD, PhD Work Phone: [facility] 02-18-2022 11:11-0400 SaO2% (BldA) [Mass fraction] 98 % William Howell MD, PhD Work Phone: [facility] 02-18-2022 11:11-0400 Systolic blood pressure 154 mm[Hg] William Howell MD, PhD Work Phone: [facility] 11-26-2021 11:37-0400 Body temperature 97.2 [degF] William Howell MD, PhD Work Phone: [facility] 11-26-2021 11:37-0400 Body weight 124.24 kg William Howell MD, PhD Work Phone: [facility] 11-26-2021 11:37-0400 Diastolic blood pressure 88 mm[Hg] William Howell MD, PhD Work Phone: [facility] 11-26-2021 11:37-0400 Heart rate 58 /min William Howell MD, PhD Work Phone: [facility] 11-26-2021 11:37-0400 Respiratory rate 18 /min William Howell MD, PhD Work Phone: [facility] 11-26-2021 11:37-0400 SaO2% (BldA) [Mass fraction] 99 % William Howell MD, PhD Work Phone: [facility] 11-26-2021 11:37-0400 Systolic blood pressure 150 mm[Hg] William Howell MD, PhD Work Phone: [facility] Encounters Encounter Date Encounter Type Care Provider Facility Start: 10-03-2023 End: 10-03-2023 ambulatory AMAN PACK Facility:[facility] Start: 10-01-2023 Chart abstracting Raheem burnette Research Coordinator Hematology/Oncology Comment on above: Research (ACTG 1920 Cycle 42 D28) Start: 10-01-2023 End: 10-02-2023 ambulatory BUFFY DAY CHUNG Facility:[facility] Start: 10-01-2023 End: 10-01-2023 Nursing evaluation of patient and report Emma Tuttle RN Hematology/Oncology Comment on above: CML (chronic myeloid leukemia) (HCC) (Primary Dx) Start: 09-29-2023 Orders Only William painting MD, PhD Work Phone: Hematology/Oncology Comment on above: CML (chronic myeloid leukemia) (HCC) (Primary Dx) Start: 09-11-2023 ambulatory BUFFY CHUNG [facility] Start: 09-10-2023 Telephone encounter [facility] Start: 08-29-2023 End: 08-29-2023 ambulatory KYLEE DALAL Facility:[facility] Start: 08-29-2023 End: 08-29-2023 Patient encounter procedure Kylee Dalal WASTE RECLAIMER.POLYSOMNOGRAPHY TECHNOLOGIST Work Phone: Endocrinology Comment on above: Type 2 diabetes aris itus with microalbuminuria, with long-term current use of insulin (HCC) (Primary Dx); Primary hypertension; Mixed hyperlipidemia Start: 08-20-2023 Orders Only William painting MD, PhD Work Phone: Hematology/Oncology Comment on above: Chronic myeloid leuk emia (HCC) (Primary Dx) Start: 08-07-2023 End: 08-07-2023 ambulatory BUFFY AICHHOLZ Not Available Start: 07-31-2023 End: 08-01-2023 [facility] Start: 07-09-2023 End: 07-10-2023 ambulatory William Howell MD, PhD Work Phone: Hematology/Oncology Comment on above: CML (chronic myelocy tic leukemia) (HCC) (Primary Dx) Start: 07-09-2023 End: 07-09-2023 Patient encounter procedure William Howell MD, PhD Work Phone: [facility] Start: 07-01-2023 End: 07-02-2023 ambulatory [facility] Start: 06-30-2023 End: 06-30-2023 ambulatory [facility] Amb[facility] Start: 06-17-2023 End: 06-17-2023 ambulatory KYLEE DALAL Facility:[facility] Start: 06-13-2023 End: 06-13-2023 ambulatory AMAN PACK Facility:[facility] Start: 05-20-2023 Orders Only William painting MD, PhD Work Phone: Hematology/Oncology Comment on above: CML (chronic myeloid leukemia) (HCC) (Primary Dx) Start: 05-09-2023 Telephone encounter Raheem feldman Research Coordinator Hematology/Oncology Start: 05-06-2023 End: 05-06-2023 ambulatory BUFFY JULIET Not Available Start: 04-29-2023 Telephone encounter Raheem feldman Research Coordinator Hematology/Oncology Comment on above: Research (ARIA 2915 Survival Follow-up) Start: 04-18-2023 End: 04-19-2023 ambulatory WILLIAM HOWELL Facility:[facility] Start: 04-18-2023 End: 04-18-2023 ambulatory AMAN PACK Facility:[facility] Start: 04-17-2023 End: 04-18-2023 Orders Only William Howell MD, PhD Work Phone: Hematology/Oncology Comment on above: CML (chronic myeloid leukemia) (HCC) (Primary Dx) Start: 04-16-2023 End: 04-17-2023 Orders Only William Howell MD, PhD Work Phone: Hematology/Oncology Comment on above: CML (chronic myeloid leukemia) (HCC) (Primary Dx) Chronic myeloid leuk emia (HCC) CML (chronic myelocy tic leukemia) (HCC) (Primary Dx) Start: 03-20-2023 Refill Kylee Zaira ni APRN.POLYSOMNOGRAPHY TECHNOLOGIST Work Phone: Endocrinology Comment on above: Refill Request Start: 02-05-2023 End: 02-05-2023 ambulatory Buffy Abiodun Matthewsholz Facility:[facility] Start: 02-05-2023 End: 02-05-2023 ambulatory Buffy Abiodun Aichholz Work Phone: [facility] Work Phone: Start: 02-05-2023 End: 02-05-2023 Patient encounter procedure Buffy Chung Work Phone: [facility] [address] Work Phone: Start: 02-03-2023 Chart abstracting Raheem burnette Research Coordinator Hematology/Oncology Comment on above: Research (Error) Start: 02-03-2023 Telephone encounter Raheem feldman Research Coordinator Hematology/Oncology Comment on above: Research (ARIA 2915 Survival Follow-up) Start: 01-22-2023 End: 01-22-2023 ambulatory WILLIAM HOWELL Facility:[facility] Start: 01-22-2023 End: 01-22-2023 ambulatory William Howell MD, PhD Work Phone: Hematology/Oncology Comment on above: CML (chronic myelocy tic leukemia) (HCC) (Primary Dx) Chronic myeloid leuk emia (HCC) (Primary Dx) Start: 01-22-2023 End: 01-23-2023 ambulatory AMAN PACK Facility:[facility] Start: 01-22-2023 End: 01-22-2023 Nursing evaluation of patient and report Emma Tuttle entry driver operator/Oncology Comment on above: CML (chronic myeloid leukemia) (HCC) (Primary Dx) Start: 01-22-2023 End: 01-22-2023 Patient encounter procedure William Howell MD, PhD Work Phone: [facility] Start: 01-21-2023 Telephone encounter William taylor MD, PhD Work Phone: Hematology/Oncology Comment on above: Biopsy Request Start: 12-03-2022 Orders Only William painting MD, PhD Work Phone: Hematology/Oncology Comment on above: CML (chronic myeloid leukemia) (HCC) (Primary Dx) Start: 12-02-2022 Orders Only William painting MD, PhD Work Phone: Hematology/Oncology Comment on above: CML (chronic myeloid leukemia) (HCC) (Primary Dx) Start: 11-01-2022 End: 11-01-2022 ambulatory MARY BEAN Facility:[facility] Start: 10-30-2022 End: 10-30-2022 ambulatory AMAN PACK Facility:[facility] Start: 10-30-2022 End: 10-31-2022 ambulatory William Howell MD, PhD Work Phone: Hematology/Oncology Comment on above: CML (chronic myelocy tic leukemia) (HCC) (Primary Dx) Start: 10-30-2022 End: 10-30-2022 Patient encounter procedure William Howell MD, PhD Work Phone: [facility] Start: 10-16-2022 End: 10-17-2022 ambulatory [facility] Start: 10-15-2022 End: 10-16-2022 ambulatory [facility] Start: 10-15-2022 End: 10-15-2022 Patient encounter procedure Kylee Dalal APRN.POLYSOMNOGRAPHY TECHNOLOGIST Work Phone: Endocrinology Comment on above: Type 2 diabetes aris itus with hyperglycemia, with long-term current use of insulin (HCC) (Primary Dx); Primary hypertension; Mixed hyperlipidemia Start: 09-17-2022 ambulatory Emma Tuttle RN He matology/Oncology Comment on above: return call Start: 09-17-2022 E-mail encounter margarita bacon caregiver Emma Tuttle RN [facility] Start: 08-06-2022 End: 08-07-2022 Orders Only William Howell MD, PhD Work Phone: Hematology/Oncology Comment on above: CML (chronic myeloid leukemia) (HCC) (Primary Dx) Biopsy Request Start: 08-05-2022 End: 08-05-2022 ambulatory William Howell MD, PhD Work Phone: Hematology/Oncology Comment on above: CML (chronic myelocy tic leukemia) (HCC) (Primary Dx) Start: 08-05-2022 End: 08-05-2022 Nursing evaluation of patient and report Ludy Kolb RN Work Phone: Hematology/Oncology Comment on above: CML (chronic myeloid leukemia) (HCC) (Primary Dx) Start: 08-05-2022 End: 08-05-2022 Patient encounter procedure William Howell MD, PhD Work Phone: [facility] Start: 07-30-2022 ambulatory Kylee ni WASTE RECLAIMER.POLYSOMNOGRAPHY TECHNOLOGIST Work Phone: Endocrinology Comment on above: Insulin Adjustments Start: 07-30-2022 E-mail encounter margarita bacon caregiver Kylee Dalal WASTE RECLAIMER.POLYSOMNOGRAPHY TECHNOLOGIST Work Phone: [facility] Start: 07-30-2022 End: 07-30-2022 Nursing evaluation of patient and report Bing Pedro RN Work Phone: Endocrinology Comment on above: Uncontrolled type 2 diabetes mellitus with hyperglycemia (HCC) Start: 07-26-2022 Chart abstracting Raheem burnette Research Coordinator Hematology/Oncology Comment on above: Research (Study ARIA 2915/ACTG 1920 Survival Follow-up) Start: 07-23-2022 Orders Only William painting MD, PhD Work Phone: Hematology/Oncology Comment on above: CML (chronic myeloid leukemia) (HCC) (Primary Dx) Start: 02-13-2023 Orders Only Efraín Villafana esearch Coordinator Hematology/Oncology Comment on above: Chronic myeloid leuk emia (HCC) (Primary Dx) Start: 07-15-2022 End: 07-15-2022 Patient encounter procedure Kylee Dalal APRN.CNP Work Phone: Endocrinology Comment on above: Type 2 diabetes aris itus with hyperglycemia, with long-term current use of insulin (HCC) (Primary Dx); Primary hypertension; Mixed hyperlipidemia Start: 06-24-2022 Orders Only William painting MD, PhD Work Phone: Hematology/Oncology Start: 05-15-2022 Orders Only William painting MD, PhD Work Phone: Hematology/Oncology Comment on above: CML (chronic myeloid leukemia) (HCC) (Primary Dx) Start: 05-13-2022 Refill William painting MD, PhD Work Phone: Hematology/Oncology Comment on above: Refill Request Start: 05-12-2022 End: 05-12-2022 ambulatory POLYSOMNOGRAPHY TECHNOLOGIST [facility]DE[facility] Facility: Start: 05-10-2022 Orders Only William painting MD, PhD Work Phone: Hematology/Oncology Comment on above: Chronic myeloid leuk emia (HCC) (Primary Dx) CML (chronic myelocy tic leukemia) (HCC) (Primary Dx) Start: 05-03-2022 Telephone encounter Kylee campbell APRN.CNP Work Phone: Endocrinology Comment on above: Patient Question Start: 03-25-2022 ambulatory Kylee ni APRN.CNP Work Phone: Endocrinology Comment on above: Lab results Start: 03-25-2022 E-mail encounter fro m caregiver Kylee Dalal APRN.CNP Work Phone: [facility] Start: 03-19-2022 End: 03-19-2022 Patient encounter procedure Kylee Dalal APRN.CNP Work Phone: Endocrinology Comment on above: Uncontrolled type 2 diabetes mellitus with hyperglycemia (HCC) (Primary Dx); Mixed hyperlipidemia Start: 02-18-2022 End: 02-18-2022 ambulatory William Howell MD, PhD Work Phone: Hematology/Oncology Comment on above: CML (chronic myelocy tic leukemia) (HCC) (Primary Dx) Start: 02-18-2022 End: 02-18-2022 Nursing evaluation of patient and report Emma Tuttle entry driver operator/Oncology Comment on above: CML (chronic myeloid leukemia) (HCC) (Primary Dx) Start: 02-18-2022 End: 02-18-2022 Patient encounter procedure William Howell MD, PhD Work Phone: [facility] Start: 02-15-2022 Orders Only William painting MD, PhD Work Phone: Hematology/Oncology Comment on above: CML (chronic myeloid leukemia) (HCC) (Primary Dx) Start: 01-10-2022 Orders Only William painting MD, PhD Work Phone: Hematology/Oncology Comment on above: CML (chronic myeloid leukemia) (HCC) (Primary Dx) Start: 01-08-2022 Orders Only William painting MD, PhD Work Phone: Hematology/Oncology Comment on above: CML (chronic myeloid leukemia) (HCC) (Primary Dx) Biopsy Request (need ed for 05/16/2022) Start: 12-03-2021 Orders Only William painting MD, PhD Work Phone: Hematology/Oncology Comment on above: CML (chronic myeloid leukemia) (HCC) (Primary Dx) Start: 11-30-2021 Telephone encounter Emma Gray i entry driver operator/Oncology Comment on above: Appointment Start: 11-29-2021 Orders Only William painting MD, PhD Work Phone: Hematology/Oncology Comment on above: CML (chronic myelocy tic leukemia) (HCC) (Primary Dx) Start: 11-28-2021 Orders Only William painting MD, PhD Work Phone: Hematology/Oncology Comment on above: CML (chronic myeloid leukemia) (HCC) (Primary Dx) Start: 11-26-2021 End: 11-26-2021 Nursing evaluation of patient and report Emma Tuttle RN Hematology/Oncology Comment on above: CML (chronic myeloid leukemia) (HCC) (Primary Dx) Start: 11-26-2021 End: 11-26-2021 ambulatory William Howell MD, PhD Work Phone: Hematology/Oncology Comment on above: CML (chronic myelocy tic leukemia) (HCC) (Primary Dx) Start: 11-26-2021 End: 11-26-2021 Patient encounter procedure William Howell MD, PhD Work Phone: [facility] Start: 11-21-2021 End: 11-21-2021 ambulatory POLYSOMNOGRAPHY TECHNOLOGIST BUFFY AICHHOLZ Facility:[facility] Start: 11-01-2021 End: 11-01-2021 ambulatory POLYSOMNOGRAPHY TECHNOLOGIST BUFFY AICHHOLZ Facility:[facility] Start: 10-03-2021 End: 10-03-2021 ambulatory POLYSOMNOGRAPHY TECHNOLOGIST BUFFY AICHHOLZ Facility:[facility] Start: 09-11-2021 Telephone encounter Emma Gray i, RN Hematology/Oncology Comment on above: Patient Question Start: 09-10-2021 Orders Only William painting MD, PhD Work Phone: Hematology/Oncology Comment on above: CML (chronic myeloid leukemia) (HCC) (Primary Dx) Start: 09-06-2021 Telephone encounter Emma Gray i, RN Hematology/Oncology Comment on above: Medication Problem Start: 09-05-2021 End: 09-06-2021 ambulatory POLYSOMNOGRAPHY TECHNOLOGIST BUFFY AICHHOLZ Facility:[facility] Start: 09-04-2021 Telephone encounter William taylor MD, PhD Work Phone: Hematology/Oncology Comment on above: Biopsy Request Start: 09-03-2021 Chart abstracting Emma Tuttle RN Hematology/Oncology Comment on above: Research (ACTG 1920 / [id number] reconsent) Start: 09-03-2021 End: 09-03-2021 Patient encounter procedure [facility] Work Phone: Vascular Medicine Comment on above: CML (chronic myeloid leukemia) (HCC) Start: 09-03-2021 End: 09-03-2021 Nursing evaluation of patient and report Emma Tuttle entry driver operator/Oncology Comment on above: CML (chronic myeloid leukemia) (HCC) (Primary Dx) Procedures Date Procedure Procedure Detail Performing Clinician Start: 10-01-2023 Echocardiography AMAN CASTRO Start: 07-09-2023 Echocardiography AMAN CASTRO Start: 06-30-2023 Follow-up visit Follow-up YAN DURHAM Start: 04-16-2023 Echocardiography AMAN CASTRO Start: 04-16-2023 Echo tthrc r-t 2d w/ wom-mode compl spec&colr d William Howell MD, PhD Work Phone: Start: 02-05-2023 XR pre/post mri xray Jaja sa Chnug Work Phone: Start: 02-05-2023 MRI of right shoulder L xavi Juliet Work Phone: Start: 01-22-2023 Echocardiography AMAN CASTRO Start: 10-30-2022 Echocardiography AMAN CASTRO Start: 10-15-2022 Hemoglobin A1c/Hemoglobin.total in Blood Kylee Mulugeta WASTE RECLAIMER.POLYSOMNOGRAPHY TECHNOLOGIST Work Phone: Start: 08-06-2022 PSA screening DOMINIC RIZZOA JULIET Comment on above: Performed By: #### M ALBR #### [facility] [address] [place] [address] Dr. Yinka Flores Start: 07-15-2022 Hemoglobin A1c/Hemoglobin.total in Blood Kylee Mulugeta WASTE RECLAIMER.POLYSOMNOGRAPHY TECHNOLOGIST Work Phone: Start: 03-19-2022 Hemoglobin A1c/Hemoglobin.total in Blood Kylee Mulugeta WASTE RECLAIMER.POLYSOMNOGRAPHY TECHNOLOGIST Work Phone: Start: 09-05-2021 PSA screening DOMINIC CHUNG Comment on above: Performed By: #### M ALBR #### [facility] [address] [place] [address] Dr. Yinka Flores Start: 09-03-2021 Echo tthrc r-t 2d w/ wom-mode compl spec&colr d Connie Burns APRN.DOMINIC Work Phone: Start: 09-03-2021 LVEF TRANSTHORACIC ECHO Connie Burns APRN.CNP Work Phone: Start: 06-11-2021 Adult depression scr eening assessment Emma Tuttle RN Plan of Treatment Date Care Activity Detail Author Start: 08-06-2027 Prostate specific antigen measurement Prostate Cancer Screening Discussion [facility] Start: 05-13-2027 LIPID SCREEN LIPID SCREEN [facility] Start: 03-22-2027 LIPID SCREEN LIPID SCREEN [facility] Start: 02-18-2027 LIPID SCREEN LIPID SCREEN [facility] Start: 11-26-2026 LIPID SCREEN LIPID SCREEN [facility] Start: 09-03-2026 LIPID SCREEN LIPID SCREEN [facility] Start: 05-13-2025 DIABETES SCREEN DIABETES SCREEN [facility] Start: 03-22-2025 DIABETES SCREEN DIABETES SCREEN [facility] Start: 03-19-2025 DIABETES SCREEN DIABETES SCREEN [facility] Start: 02-18-2025 DIABETES SCREEN DIABETES SCREEN [facility] Start: 11-26-2024 DIABETES SCREEN DIABETES SCREEN [facility] Start: 09-03-2024 DIABETES SCREEN DIABETES SCREEN [facility] Start: 08-28-2024 BP Controlled (<130/80) BP Controlled (<130/80) [facility] Start: 07-24-2024 Adult BMI Screening Adult BMI Screening [facility] Start: 07-09-2024 Hepatitis B surface antibody level LDL Cholesterol [facility] Start: 06-30-2024 Tobacco Screening Tobacco Screening [facility] Start: 04-17-2024 Hepatitis B screening Urine Albumin:Creatinine Ratio [facility] Start: 04-01-2024 Hemoglobin A1c measurement HbA1C [facility] Start: 03-08-2024 End: 03-08-2024 Patient encounter procedure 03/08/2024 8:30 AM EDT Office Visit Endocrinology [address] [place] [address] Kylee Dalal APRN.POLYSOMNOGRAPHY TECHNOLOGIST [address] [place] [address] 6 months (around 02/29/2024 Endocrinology Comment on above: 6 months (around 02/29/2024 Start: 02-08-2024 Influenza vaccination [facility] Start: 01-07-2024 Hemoglobin A1c measurement HbA1C [facility] Start: 12-24-2023 End: 12-25-2023 Amylase [Enzymatic activity/volume] in Serum or Plasma AMYLASE BLD Lab Routine Chronic myeloid leukemia (HCC) Expected: 12/24/2023, Expires: 12/25/2023 [facility] Work Phone: Comment on above: Expected: 12/24/2023, Expires: Start: 12-24-2023 End: 12-25-2023 aPTT in Platelet poor plasma by Coagulation assay ACTIVATED PTT Lab Routine Chronic myeloid leukemia (HCC) Expected: 12/24/2023, Expires: 12/25/2023 [facility] Work Phone: Comment on above: Expected: 12/24/2023, Expires: Start: 12-24-2023 End: 12-25-2023 BCR/ABL1 P210 QUANTITATIVE PCR BLOOD BCR/ABL1 P210 QUANTITATIVE PCR BLOOD Lab Routine Chronic myeloid leukemia (HCC) Expected: 12/24/2023, Expires: 12/25/2023 [facility] Work Phone: Comment on above: Expected: 12/24/2023, Expires: Start: 12-24-2023 End: 12-25-2023 Bilirubin.conjugated [Mass/volume] in Serum or Plasma BILIRUBIN DIRECT BLD Lab Routine Chronic myeloid leukemia (HCC) Expected: 12/24/2023, Expires: 12/25/2023 [facility] Work Phone: Comment on above: Expected: 12/24/2023, Expires: Start: 12-24-2023 End: 12-25-2023 CBC W Auto Differential panel - Blood CBC + DIFF Lab Routine Chronic myeloid leukemia (HCC) Expected: 12/24/2023, Expires: 12/25/2023 [facility] Work Phone: Comment on above: Expected: 12/24/2023, Expires: Start: 12-24-2023 End: 12-25-2023 Cholesterol [Mass/volume] in Serum or Plasma CHOLESTEROL BLD Lab Routine Chronic myeloid leukemia (HCC) Expected: 12/24/2023, Expires: 12/25/2023 [facility] Work Phone: Comment on above: Expected: 12/24/2023, Expires: Start: 12-24-2023 End: 12-25-2023 Comprehensive metabolic 2000 panel - Serum or Plasma COMP METABOLIC PANEL Lab Routine Chronic myeloid leukemia (HCC) Expected: 12/24/2023, Expires: 12/25/2023 [facility] Work Phone: Comment on above: Expected: 12/24/2023, Expires: Start: 12-24-2023 End: 12-25-2023 Creatine kinase [Enzymatic activity/volume] in Serum or Plasma CK CREATINE KINASE Lab Routine Chronic myeloid leukemia (HCC) Expected: 12/24/2023, Expires: 12/25/2023 [facility] Work Phone: Comment on above: Expected: 12/24/2023, Expires: Start: 12-24-2023 End: 12-25-2023 ECG COMPLETE ECG COMPLETE ECG Routine Chronic myeloid leukemia (HCC) Expected: 12/24/2023, Expires: 12/25/2023 [facility] Work Phone: Comment on above: Expected: 12/24/2023, Expires: 4 Start: 12-24-2023 End: 12-25-2023 Echocardiography ECHO Cardiology Routine Chronic myeloid leukemia (HCC) Expected: 12/24/2023, Expires: 12/25/2023 [facility] Work Phone: Comment on above: Expected: 12/24/2023, Expires: Start: 12-24-2023 End: 12-25-2023 Hemoglobin A1c in Blood HGB A1C Lab Routine Chronic myeloid leukemia (HCC) Expected: 12/24/2023, Expires: 12/25/2023 [facility] Work Phone: Comment on above: Expected: 12/24/2023, Expires: Start: 12-24-2023 End: 12-25-2023 HIGH SENSITIVITY TROPONIN T HIGH SENSITIVITY TROPONIN T Lab Routine Chronic myeloid leukemia (HCC) Expected: 12/24/2023, Expires: 12/25/2023 [facility] Work Phone: Comment on above: Expected: 12/24/2023, Expires: Start: 12-24-2023 End: 12-25-2023 Lipase [Enzymatic activity/volume] in Serum or Plasma LIPASE BLD Lab Routine Chronic myeloid leukemia (HCC) Expected: 12/24/2023, Expires: 12/25/2023 [facility] Work Phone: Comment on above: Expected: 12/24/2023, Expires: Start: 12-24-2023 End: 12-25-2023 Magnesium [Mass/volume] in Serum or Plasma MAGNESIUM BLD Lab Routine Chronic myeloid leukemia (HCC) Expected: 12/24/2023, Expires: 12/25/2023 [facility] Work Phone: Comment on above: Expected: 12/24/2023, Expires: Start: 12-24-2023 End: 12-25-2023 MISC SEND OUT TST 1 MISC SEND OUT TST 1 Lab Routine Chronic myeloid leukemia (HCC) Expected: 12/24/2023, Expires: 12/25/2023 [facility] Work Phone: Comment on above: Expected: 12/24/2023, Expires: Start: 12-24-2023 End: 12-25-2023 Phosphate [Mass/volume] in Serum or Plasma PHOSPHORUS INORGANIC Lab Routine Chronic myeloid leukemia (HCC) Expected: 12/24/2023, Expires: 12/25/2023 [facility] Work Phone: Comment on above: Expected: 12/24/2023, Expires: Start: 12-24-2023 End: 12-25-2023 PT panel - Platelet poor plasma by Coagulation assay PROTHROMBIN TIME/PT Lab Routine Chronic myeloid leukemia (HCC) Expected: 12/24/2023, Expires: 12/25/2023 [facility] Work Phone: Comment on above: Expected: 12/24/2023, Expires: Start: 12-24-2023 End: 12-25-2023 Triglyceride [Mass/volume] in Serum or Plasma TRIGLYCERIDES BLD Lab Routine Chronic myeloid leukemia (HCC) Expected: 12/24/2023, Expires: 12/25/2023 [facility] Work Phone: Comment on above: Expected: 12/24/2023, Expires: Start: 12-24-2023 End: 12-25-2023 Urate [Mass/volume] in Serum or Plasma URIC ACID BLOOD Lab Routine Chronic myeloid leukemia (HCC) Expected: 12/24/2023, Expires: 12/25/2023 [facility] Work Phone: Comment on above: Expected: 12/24/2023, Expires: Start: 12-24-2023 End: 12-25-2023 URINALYSIS, DIPSTICK ONLY URINALYSIS, DIPSTICK ONLY Lab Routine Chronic myeloid leukemia (HCC) Expected: 12/24/2023, Expires: 12/25/2023 [facility] Work Phone: Comment on above: Expected: 12/24/2023, Expires: Start: 12-24-2023 End: 12-24-2023 Patient encounter procedure 12/24/2023 10:40 AM EDT Office Visit Vascular Medicine [address] [place] [address] STUDY PT Vascular Medicine Comment on above: STUDY PT Start: 12-24-2023 End: 12-24-2023 Nursing evaluation of patient and report 12/24/2023 9:30 AM EDT Nurse Visit Hematology/Oncology [address] [place] [address] Emma Tuttle, RN [address] [place] [address] STUDY PT Hematology/Oncology Comment on above: STUDY PT Start: 12-24-2023 End: 12-24-2023 ambulatory [facility] [place] [address] mir[address] Quintanilla Comment on above: STUDY PT Start: 10-09-2023 End: 01-08-2024 MISC SEND OUT TST 1 MISC SEND OUT TST 1 Lab Routine CML (chronic myeloid leukemia) (HCC) Expected: 10/09/2023, Expires: 01/08/2024 [facility] Work Phone: Comment on above: Expected: 10/09/2023, Expires: Start: 10-03-2023 End: 10-03-2023 Admission to same day surgery center 10/03/2023 8:00 AM EDT - 10/03/2023 9:09 AM EDT Surgery Angio [address] [place] [address] Rafael Hahn MD [address], [address] [address] DIAGNOSTIC BONE MARROW BIOPSY(IES) Angio Comment on above: DIAGNOSTIC BONE MARROW BIOPSY(IES) Start: 10-03-2023 End: 10-03-2023 Diagnostic bone marrow biopsies DIAGNOSTIC BONE MARROW BIOPSY(IES) CML (chronic myeloid leukemia) (HCC) 10/03/2023 8:00 AM EDT [facility] Start: 10-03-2023 Subsequent hospital visit by physician 10/03/2023 8:00 AM EDT Hospital Encounter Angio [address] [place] [address] Rafael Hahn MD [address], [address] [address] 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] Angio Comment on above: CML (chronic myeloid leukemia) (HCC) [C9 2.10] Start: 09-11-2023 End: 09-11-2023 Patient encounter procedure 09/11/2023 4:30 PM EDT Office Visit [facility] [address] [place] [id number] Nichole Desir MD [address] [place] [address] [facility] Start: 07-18-2023 Hemoglobin A1c measurement HbA1C [facility] Start: 07-18-2023 Hemoglobin A1c/Hemoglobin.total in Blood HbA1C [facility] Start: 06-09-2023 Behavioral Health Screening Behavioral Health Screening [facility] Start: 06-09-2023 Depression Assessment Depression Assessment [facility] Start: 04-24-2023 Hemoglobin A1c/Hemoglobin.total in Blood HBA1C [facility] Start: 04-18-2023 End: 07-18-2023 BCR/ABL1 P190 QUANTITATIVE PCR BONE MARROW BCR/ABL1 P190 QUANTITATIVE PCR BONE MARROW Lab Routine CML (chronic myeloid leukemia) ([facility]) Expected: 04/18/2023, Expires: 07/18/2023 [facility] Work Phone: Comment on above: Expected: 04/18/2023, Expires: 4 Start: 04-18-2023 End: 07-18-2023 Comprehensive metabolic 2000 panel - Serum or Plasma [facility] Work Phone: Comment on above: Expected: 04/18/2023, Expires: 4 Start: 04-16-2023 End: 04-17-2023 Amylase [Enzymatic activity/volume] in Serum or Plasma AMYLASE BLD Lab Routine Chronic myeloid leukemia (HCC) Expected: 04/16/2023, Expires: 04/17/2023 [facility] Work Phone: Comment on above: Expected: 04/16/2023, Expires: 3 Start: 04-16-2023 End: 04-17-2023 aPTT in Platelet poor plasma by Coagulation assay ACTIVATED PTT Lab Routine Chronic myeloid leukemia (HCC) Expected: 04/16/2023, Expires: 04/17/2023 [facility] Work Phone: Comment on above: Expected: 04/16/2023, Expires: 3 Start: 04-16-2023 End: 04-17-2023 BCR/ABL1 P190 QUANTITATIVE PCR BONE MARROW BCR/ABL1 P190 QUANTITATIVE PCR BONE MARROW Lab Routine Chronic myeloid leukemia (HCC) Expected: 04/16/2023, Expires: 04/17/2023 [facility] Work Phone: Comment on above: Expected: 04/16/2023, Expires: Start: 04-16-2023 End: 04-17-2023 BCR/ABL1 P210 QUANTITATIVE PCR BLOOD BCR/ABL1 P210 QUANTITATIVE PCR BLOOD Lab Routine Chronic myeloid leukemia (HCC) Expected: 04/16/2023, Expires: 04/17/2023 [facility] Work Phone: Comment on above: Expected: 04/16/2023, Expires: Start: 04-16-2023 End: 04-17-2023 Bilirubin.conjugated [Mass/volume] in Serum or Plasma BILIRUBIN DIRECT BLD Lab Routine Chronic myeloid leukemia (HCC) Expected: 04/16/2023, Expires: 04/17/2023 [facility] Work Phone: Comment on above: Expected: 04/16/2023, Expires: Start: 04-16-2023 End: 04-17-2023 CBC W Auto Differential panel - Blood CBC + DIFF Lab Routine Chronic myeloid leukemia (HCC) Expected: 04/16/2023, Expires: 04/17/2023 [facility] Work Phone: Comment on above: Expected: 04/16/2023, Expires: 3 Start: 04-16-2023 End: 04-17-2023 Cholesterol [Mass/volume] in Serum or Plasma CHOLESTEROL BLD Lab Routine Chronic myeloid leukemia (HCC) Expected: 04/16/2023, Expires: 04/17/2023 [facility] Work Phone: Comment on above: Expected: 04/16/2023, Expires: Start: 04-16-2023 End: 04-17-2023 CLINICAL TRIAL DRAW CLINICAL TRIAL DRAW Lab Routine Chronic myeloid leukemia (HCC) Expected: 04/16/2023, Expires: 04/17/2023 [facility] Work Phone: Comment on above: Expected: 04/16/2023, Expires: Start: 04-16-2023 End: 04-17-2023 Comprehensive metabolic 2000 panel - Serum or Plasma COMP METABOLIC PANEL Lab Routine Chronic myeloid leukemia (HCC) Expected: 04/16/2023, Expires: 04/17/2023 [facility] Work Phone: Comment on above: Expected: 04/16/2023, Expires: Start: 04-16-2023 End: 04-17-2023 Creatine kinase [Enzymatic activity/volume] in Serum or Plasma CK CREATINE KINASE Lab Routine Chronic myeloid leukemia (HCC) Expected: 04/16/2023, Expires: 04/17/2023 [facility] Work Phone: Comment on above: Expected: 04/16/2023, Expires: 3 Start: 04-16-2023 End: 04-17-2023 ECG COMPLETE ECG COMPLETE ECG Routine Chronic myeloid leukemia (HCC) Expected: 04/16/2023, Expires: 04/17/2023 [facility] Work Phone: Comment on above: Expected: 04/16/2023, Expires: Start: 04-16-2023 End: 04-17-2023 HIGH SENSITIVITY TROPONIN T HIGH SENSITIVITY TROPONIN T Lab Routine Chronic myeloid leukemia (HCC) Expected: 04/16/2023, Expires: 04/17/2023 [facility] Work Phone: Comment on above: Expected: 04/16/2023, Expires: Start: 04-16-2023 End: 04-17-2023 Lipase [Enzymatic activity/volume] in Serum or Plasma LIPASE BLD Lab Routine Chronic myeloid leukemia (HCC) Expected: 04/16/2023, Expires: 04/17/2023 [facility] Work Phone: Comment on above: Expected: 04/16/2023, Expires: 3 Start: 04-16-2023 End: 04-17-2023 Magnesium [Mass/volume] in Serum or Plasma MAGNESIUM BLD Lab Routine Chronic myeloid leukemia (HCC) Expected: 04/16/2023, Expires: 04/17/2023 [facility] Work Phone: Comment on above: Expected: 04/16/2023, Expires: 3 Start: 04-16-2023 End: 04-17-2023 Phosphate [Mass/volume] in Serum or Plasma PHOSPHORUS INORGANIC Lab Routine Chronic myeloid leukemia (HCC) Expected: 04/16/2023, Expires: 04/17/2023 [facility] Work Phone: Comment on above: Expected: 04/16/2023, Expires: 3 Start: 04-16-2023 End: 04-17-2023 PT panel - Platelet poor plasma by Coagulation assay PROTHROMBIN TIME/PT Lab Routine Chronic myeloid leukemia (HCC) Expected: 04/16/2023, Expires: 04/17/2023 [facility] Work Phone: Comment on above: Expected: 04/16/2023, Expires: 3 Start: 04-16-2023 End: 04-17-2023 Triglyceride [Mass/volume] in Serum or Plasma TRIGLYCERIDES BLD Lab Routine Chronic myeloid leukemia (HCC) Expected: 04/16/2023, Expires: 04/17/2023 [facility] Work Phone: Comment on above: Expected: 04/16/2023, Expires: 3 Start: 04-16-2023 End: 04-17-2023 Urate [Mass/volume] in Serum or Plasma URIC ACID BLOOD Lab Routine Chronic myeloid leukemia (HCC) Expected: 04/16/2023, Expires: 04/17/2023 [facility] Work Phone: Comment on above: Expected: 04/16/2023, Expires: 3 Start: 04-16-2023 End: 04-17-2023 URINALYSIS, DIPSTICK ONLY URINALYSIS, DIPSTICK ONLY Lab Routine Chronic myeloid leukemia (HCC) Expected: 04/16/2023, Expires: 04/17/2023 [facility] Work Phone: Comment on above: Expected: 04/16/2023, Expires: 3 Start: 03-22-2023 Hepatitis B screening URINE ALBUMIN:CREATININE RATIO [facility] Start: 03-22-2023 Hepatitis B surface antibody level LDL CHOLESTEROL [facility] Start: 02-07-2023 Influenza vaccination [facility] Start: 01-22-2023 End: 01-23-2023 Amylase [Enzymatic activity/volume] in Serum or Plasma AMYLASE BLD Lab Routine CML (chronic myeloid leukemia) ([facility]) Expected: 01/22/2023, Expires: 01/23/2023 [facility] Work Phone: Comment on above: Expected: 01/22/2023, Expires: 3 Start: 01-22-2023 End: 01-23-2023 aPTT in Platelet poor plasma by Coagulation assay ACTIVATED PTT Lab Routine CML (chronic myeloid leukemia) ([facility]) Expected: 01/22/2023, Expires: 01/23/2023 [facility] Work Phone: Comment on above: Expected: 01/22/2023, Expires: 3 Start: 01-22-2023 End: 01-23-2023 BCR/ABL1 P190 QUANTITATIVE PCR BLOOD BCR/ABL1 P190 QUANTITATIVE PCR BLOOD Lab Routine CML (chronic myeloid leukemia) (HCC) Expected: 01/22/2023, Expires: 01/23/2023 [facility] Work Phone: Comment on above: Expected: 01/22/2023, Expires: 3 Start: 01-22-2023 End: 01-23-2023 BCR/ABL1 P210 QUANTITATIVE PCR BLOOD BCR/ABL1 P210 QUANTITATIVE PCR BLOOD Lab Routine CML (chronic myeloid leukemia) ([facility]) Expected: 01/22/2023, Expires: 01/23/2023 [facility] Work Phone: Comment on above: Expected: 01/22/2023, Expires: 3 Start: 01-22-2023 End: 01-23-2023 Bilirubin.conjugated [Mass/volume] in Serum or Plasma BILIRUBIN DIRECT BLD Lab Routine CML (chronic myeloid leukemia) ([facility]) Expected: 01/22/2023, Expires: 01/23/2023 [facility] Work Phone: Comment on above: Expected: 01/22/2023, Expires: 3 Start: 01-22-2023 End: 01-23-2023 CBC W Auto Differential panel - Blood CBC + DIFF Lab Routine CML (chronic myeloid leukemia) ([facility]) Expected: 01/22/2023, Expires: 01/23/2023 [facility] Work Phone: Comment on above: Expected: 01/22/2023, Expires: Start: 01-22-2023 End: 01-23-2023 Cholesterol [Mass/volume] in Serum or Plasma CHOLESTEROL BLD Lab Routine CML (chronic myeloid leukemia) ([facility]) Expected: 01/22/2023, Expires: 01/23/2023 [facility] Work Phone: Comment on above: Expected: 01/22/2023, Expires: 3 Start: 01-22-2023 End: 01-23-2023 CK TOTAL AND CK-MB CK TOTAL AND CK-MB Lab Routine CML (chronic myeloid leukemia) ([facility]) Expected: 01/22/2023, Expires: 01/23/2023 [facility] Work Phone: Comment on above: Expected: 01/22/2023, Expires: 3 Start: 01-22-2023 End: 01-23-2023 CLINICAL TRIAL DRAW CLINICAL TRIAL DRAW Lab Routine CML (chronic myeloid leukemia) ([facility]) Expected: 01/22/2023, Expires: 01/23/2023 [facility] Work Phone: Comment on above: Expected: 01/22/2023, Expires: 3 Start: 01-22-2023 End: 01-23-2023 Comprehensive metabolic 2000 panel - Serum or Plasma COMP METABOLIC PANEL Lab Routine CML (chronic myeloid leukemia) (HCC) Expected: 01/22/2023, Expires: 01/23/2023 [facility] Work Phone: Comment on above: Expected: 01/22/2023, Expires: 3 Start: 01-22-2023 End: 01-23-2023 Hemoglobin A1c in Blood HGB A1C Lab Routine CML (chronic myeloid leukemia) ([facility]) Expected: 01/22/2023, Expires: 01/23/2023 [facility] Work Phone: Comment on above: Expected: 01/22/2023, Expires: 3 Start: 01-22-2023 End: 01-23-2023 HIGH SENSITIVITY TROPONIN T HIGH SENSITIVITY TROPONIN T Lab Routine CML (chronic myeloid leukemia) ([facility]) Expected: 01/22/2023, Expires: 01/23/2023 [facility] Work Phone: Comment on above: Expected: 01/22/2023, Expires: 3 Start: 01-22-2023 End: 01-23-2023 Lipase [Enzymatic activity/volume] in Serum or Plasma LIPASE BLD Lab Routine CML (chronic myeloid leukemia) ([facility]) Expected: 01/22/2023, Expires: 01/23/2023 [facility] Work Phone: Comment on above: Expected: 01/22/2023, Expires: 3 Start: 01-22-2023 End: 01-23-2023 Magnesium [Mass/volume] in Serum or Plasma MAGNESIUM BLD Lab Routine CML (chronic myeloid leukemia) (HCC) Expected: 01/22/2023, Expires: 01/23/2023 [facility] Work Phone: Comment on above: Expected: 01/22/2023, Expires: 3 Start: 01-22-2023 End: 01-23-2023 Phosphate [Mass/volume] in Serum or Plasma PHOSPHORUS INORGANIC Lab Routine CML (chronic myeloid leukemia) (HCC) Expected: 01/22/2023, Expires: 01/23/2023 [facility] Work Phone: Comment on above: Expected: 01/22/2023, Expires: Start: 01-22-2023 End: 01-23-2023 PT panel - Platelet poor plasma by Coagulation assay PROTHROMBIN TIME/PT Lab Routine CML (chronic myeloid leukemia) ([facility]) Expected: 01/22/2023, Expires: 01/23/2023 [facility] Work Phone: Comment on above: Expected: 01/22/2023, Expires: 3 Start: 01-22-2023 End: 01-23-2023 Triglyceride [Mass/volume] in Serum or Plasma TRIGLYCERIDES BLD Lab Routine CML (chronic myeloid leukemia) ([facility]) Expected: 01/22/2023, Expires: 01/23/2023 [facility] Work Phone: Comment on above: Expected: 01/22/2023, Expires: 3 Start: 01-22-2023 End: 01-23-2023 Urate [Mass/volume] in Serum or Plasma URIC ACID BLOOD Lab Routine CML (chronic myeloid leukemia) ([facility]) Expected: 01/22/2023, Expires: 01/23/2023 [facility] Work Phone: Comment on above: Expected: 01/22/2023, Expires: Start: 01-22-2023 End: 01-23-2023 URINALYSIS, DIPSTICK ONLY URINALYSIS, DIPSTICK ONLY Lab Routine CML (chronic myeloid leukemia) ([facility]) Expected: 01/22/2023, Expires: 01/23/2023 [facility] Work Phone: Comment on above: Expected: 01/22/2023, Expires: Start: 01-15-2023 Hemoglobin A1c/Hemoglobin.total in Blood HBA1C [facility] Start: 10-28-2022 End: 10-29-2022 Amylase [Enzymatic activity/volume] in Serum or Plasma AMYLASE BLD Lab STAT Chronic myeloid leukemia ([facility]) Expected: 10/28/2022, Expires: 10/29/2022 [facility] Work Phone: Comment on above: Expected: 10/28/2022, Expires: Start: 10-28-2022 End: 10-29-2022 aPTT in Platelet poor plasma by Coagulation assay ACTIVATED PTT Lab STAT Chronic myeloid leukemia (HCC) Expected: 10/28/2022, Expires: 10/29/2022 [facility] Work Phone: Comment on above: Expected: 10/28/2022, Expires: Start: 10-28-2022 End: 10-29-2022 Bilirubin.conjugated [Mass/volume] in Serum or Plasma BILIRUBIN DIRECT BLD Lab STAT Chronic myeloid leukemia (HCC) Expected: 10/28/2022, Expires: 10/29/2022 [facility] Work Phone: Comment on above: Expected: 10/28/2022, Expires: 3 Start: 10-28-2022 End: 10-29-2022 C reactive protein [Mass/volume] in Serum or Plasma C-REACTIVE PROTEIN (CRP) Lab STAT Chronic myeloid leukemia (HCC) Expected: 10/28/2022, Expires: 10/29/2022 [facility] Work Phone: Comment on above: Expected: 10/28/2022, Expires: Start: 10-28-2022 End: 10-29-2022 CBC W Auto Differential panel - Blood CBC + DIFF Lab STAT Chronic myeloid leukemia (HCC) Expected: 10/28/2022, Expires: 10/29/2022 [facility] Work Phone: Comment on above: Expected: 10/28/2022, Expires: Start: 10-28-2022 End: 10-29-2022 Cholesterol [Mass/volume] in Serum or Plasma CHOLESTEROL BLD Lab STAT Chronic myeloid leukemia (HCC) Expected: 10/28/2022, Expires: 10/29/2022 [facility] Work Phone: Comment on above: Expected: 10/28/2022, Expires: 3 Start: 10-28-2022 End: 10-29-2022 CLINICAL TRIAL DRAW CLINICAL TRIAL DRAW Lab STAT Chronic myeloid leukemia (HCC) Expected: 10/28/2022, Expires: 10/29/2022 [facility] Work Phone: Comment on above: Expected: 10/28/2022, Expires: 3 Start: 10-28-2022 End: 10-29-2022 Comprehensive metabolic 2000 panel - Serum or Plasma COMP METABOLIC PANEL Lab STAT Chronic myeloid leukemia (HCC) Expected: 10/28/2022, Expires: 10/29/2022 [facility] Work Phone: Comment on above: Expected: 10/28/2022, Expires: 3 Start: 10-28-2022 End: 10-29-2022 Lipase [Enzymatic activity/volume] in Serum or Plasma LIPASE BLD Lab STAT Chronic myeloid leukemia (HCC) Expected: 10/28/2022, Expires: 10/29/2022 [facility] Work Phone: Comment on above: Expected: 10/28/2022, Expires: 3 Start: 10-28-2022 End: 10-29-2022 Magnesium [Mass/volume] in Serum or Plasma MAGNESIUM BLD Lab STAT Chronic myeloid leukemia (HCC) Expected: 10/28/2022, Expires: 10/29/2022 [facility] Work Phone: Comment on above: Expected: 10/28/2022, Expires: 3 Start: 10-28-2022 End: 10-29-2022 Phosphate [Mass/volume] in Serum or Plasma PHOSPHORUS INORGANIC Lab STAT Chronic myeloid leukemia (HCC) Expected: 10/28/2022, Expires: 10/29/2022 [facility] Work Phone: Comment on above: Expected: 10/28/2022, Expires: 3 Start: 10-28-2022 End: 10-29-2022 PT panel - Platelet poor plasma by Coagulation assay PROTHROMBIN TIME/PT Lab STAT Chronic myeloid leukemia (HCC) Expected: 10/28/2022, Expires: 10/29/2022 [facility] Work Phone: Comment on above: Expected: 10/28/2022, Expires: 3 Start: 10-28-2022 End: 10-29-2022 Triglyceride [Mass/volume] in Serum or Plasma TRIGLYCERIDES BLD Lab STAT Chronic myeloid leukemia (HCC) Expected: 10/28/2022, Expires: 10/29/2022 [facility] Work Phone: Comment on above: Expected: 10/28/2022, Expires: Start: 10-28-2022 End: 10-29-2022 Troponin I.cardiac [Mass/volume] in Serum or Plasma TROPONIN (POCT) Lab STAT Chronic myeloid leukemia (HCC) Expected: 10/28/2022, Expires: 10/29/2022 [facility] Work Phone: Comment on above: Expected: 10/28/2022, Expires: 3 Start: 10-28-2022 End: 10-29-2022 Urate [Mass/volume] in Serum or Plasma URIC ACID BLOOD Lab STAT Chronic myeloid leukemia (HCC) Expected: 10/28/2022, Expires: 10/29/2022 [facility] Work Phone: Comment on above: Expected: 10/28/2022, Expires: 3 Start: 10-28-2022 End: 10-29-2022 URINALYSIS, DIPSTICK ONLY URINALYSIS, DIPSTICK ONLY Lab STAT Chronic myeloid leukemia (HCC) Expected: 10/28/2022, Expires: 10/29/2022 [facility] Work Phone: Comment on above: Expected: 10/28/2022, Expires: 3 Start: 10-12-2022 Hemoglobin A1c/Hemoglobin.total in Blood HBA1C [facility] Start: 08-05-2022 End: 08-06-2022 Amylase [Enzymatic activity/volume] in Serum or Plasma AMYLASE BLD Lab STAT Chronic myeloid leukemia (HCC) Expected: 08/05/2022, Expires: 08/06/2022 [facility] Work Phone: Comment on above: Expected: 08/05/2022, Expires: 3 Start: 08-05-2022 End: 08-06-2022 aPTT in Platelet poor plasma by Coagulation assay ACTIVATED PTT Lab STAT Chronic myeloid leukemia (HCC) Expected: 08/05/2022, Expires: 08/06/2022 [facility] Work Phone: Comment on above: Expected: 08/05/2022, Expires: Start: 08-05-2022 End: 10-05-2022 BCR/ABL1 P210 QUANTITATIVE PCR BLOOD BCR/ABL1 P210 QUANTITATIVE PCR BLOOD Lab Routine CML (chronic myeloid leukemia) ([facility]) Expected: 08/05/2022, Expires: 10/05/2022 [facility] Work Phone: Comment on above: Expected: 08/05/2022, Expires: 3 Start: 08-05-2022 End: 08-06-2022 Bilirubin.conjugated [Mass/volume] in Serum or Plasma BILIRUBIN DIRECT BLD Lab STAT Chronic myeloid leukemia (HCC) Expected: 08/05/2022, Expires: 08/06/2022 [facility] Work Phone: Comment on above: Expected: 08/05/2022, Expires: 3 Start: 08-05-2022 End: 08-06-2022 C reactive protein [Mass/volume] in Serum or Plasma C-REACTIVE PROTEIN (CRP) Lab STAT Chronic myeloid leukemia (HCC) Expected: 08/05/2022, Expires: 08/06/2022 [facility] Work Phone: Comment on above: Expected: 08/05/2022, Expires: 3 Start: 08-05-2022 End: 08-06-2022 CBC W Auto Differential panel - Blood CBC + DIFF Lab STAT Chronic myeloid leukemia (HCC) Expected: 08/05/2022, Expires: 08/06/2022 [facility] Work Phone: Comment on above: Expected: 08/05/2022, Expires: 3 Start: 08-05-2022 End: 08-06-2022 Cholesterol [Mass/volume] in Serum or Plasma CHOLESTEROL BLD Lab STAT Chronic myeloid leukemia (HCC) Expected: 08/05/2022, Expires: 08/06/2022 [facility] Work Phone: Comment on above: Expected: 08/05/2022, Expires: 3 Start: 08-05-2022 End: 08-06-2022 CLINICAL TRIAL DRAW CLINICAL TRIAL DRAW Lab STAT Chronic myeloid leukemia (HCC) Expected: 08/05/2022, Expires: 08/06/2022 [facility] Work Phone: Comment on above: Expected: 08/05/2022, Expires: 3 Start: 08-05-2022 End: 08-06-2022 Comprehensive metabolic 2000 panel - Serum or Plasma COMP METABOLIC PANEL Lab STAT Chronic myeloid leukemia (HCC) Expected: 08/05/2022, Expires: 08/06/2022 [facility] Work Phone: Comment on above: Expected: 08/05/2022, Expires: 3 Start: 08-05-2022 End: 10-05-2022 HIGH SENSITIVITY TROPONIN T HIGH SENSITIVITY TROPONIN T Lab Routine CML (chronic myeloid leukemia) ([facility]) Expected: 08/05/2022, Expires: 10/05/2022 [facility] Work Phone: Comment on above: Expected: 08/05/2022, Expires: 3 Start: 08-05-2022 End: 08-06-2022 Lipase [Enzymatic activity/volume] in Serum or Plasma LIPASE BLD Lab STAT Chronic myeloid leukemia (HCC) Expected: 08/05/2022, Expires: 08/06/2022 [facility] Work Phone: Comment on above: Expected: 08/05/2022, Expires: 3 Start: 08-05-2022 End: 08-06-2022 Magnesium [Mass/volume] in Serum or Plasma MAGNESIUM BLD Lab STAT Chronic myeloid leukemia (HCC) Expected: 08/05/2022, Expires: 08/06/2022 [facility] Work Phone: Comment on above: Expected: 08/05/2022, Expires: 3 Start: 08-05-2022 End: 08-06-2022 Phosphate [Mass/volume] in Serum or Plasma PHOSPHORUS INORGANIC Lab STAT Chronic myeloid leukemia (HCC) Expected: 08/05/2022, Expires: 08/06/2022 [facility] Work Phone: Comment on above: Expected: 08/05/2022, Expires: 3 Start: 08-05-2022 End: 08-06-2022 PT panel - Platelet poor plasma by Coagulation assay PROTHROMBIN TIME/PT Lab STAT Chronic myeloid leukemia (HCC) Expected: 08/05/2022, Expires: 08/06/2022 [facility] Work Phone: Comment on above: Expected: 08/05/2022, Expires: 3 Start: 08-05-2022 End: 08-06-2022 Triglyceride [Mass/volume] in Serum or Plasma TRIGLYCERIDES BLD Lab STAT Chronic myeloid leukemia (HCC) Expected: 08/05/2022, Expires: 08/06/2022 [facility] Work Phone: Comment on above: Expected: 08/05/2022, Expires: 3 Start: 08-05-2022 End: 08-06-2022 Troponin I.cardiac [Mass/volume] in Serum or Plasma TROPONIN (POCT) Lab STAT Chronic myeloid leukemia (HCC) Expected: 08/05/2022, Expires: 08/06/2022 [facility] Work Phone: Comment on above: Expected: 08/05/2022, Expires: 3 Start: 08-05-2022 End: 08-06-2022 Urate [Mass/volume] in Serum or Plasma URIC ACID BLOOD Lab STAT Chronic myeloid leukemia (HCC) Expected: 08/05/2022, Expires: 08/06/2022 [facility] Work Phone: Comment on above: Expected: 08/05/2022, Expires: 3 Start: 08-05-2022 End: 08-06-2022 URINALYSIS, DIPSTICK ONLY URINALYSIS, DIPSTICK ONLY Lab STAT Chronic myeloid leukemia (HCC) Expected: 08/05/2022, Expires: 08/06/2022 [facility] Work Phone: Comment on above: Expected: 08/05/2022, Expires: 3 Start: 06-11-2022 Adult depression screening assessment DEPRESSION SCREENING [facility] Start: 06-09-2022 DEPRESSION ASSESSMENT DEPRESSION ASSESSMENT [facility] Start: 03-19-2022 End: 05-19-2022 ALBUMIN/CREAT RATIO RND UR ALBUMIN/CREAT RATIO RND UR Lab Routine Uncontrolled type 2 diabetes mellitus with hyperglycemia (HCC) Expected: 03/19/2022, Expires: 05/19/2022 [facility] Work Phone: Comment on above: Expected: 03/19/2022, Expires: 2 Start: 03-19-2022 End: 05-19-2022 C peptide [Mass/volume] in Serum or Plasma C-PEPTIDE BLD Lab Routine Uncontrolled type 2 diabetes mellitus with hyperglycemia (HCC) Expected: 03/19/2022, Expires: 05/19/2022 [facility] Work Phone: Comment on above: Expected: 03/19/2022, Expires: 2 Start: 03-19-2022 End: 05-19-2022 Cholesterol in LDL [Mass/volume] in Serum or Plasma LDL CHOLESTEROL DIR Lab Routine Uncontrolled type 2 diabetes mellitus with hyperglycemia (HCC) Expected: 03/19/2022, Expires: 05/19/2022 [facility] Work Phone: Comment on above: Expected: 03/19/2022, Expires: 2 Start: 03-19-2022 End: 05-19-2022 Fasting glucose [Mass/volume] in Serum or Plasma GLUCOSE FASTING BLD Lab Routine Uncontrolled type 2 diabetes mellitus with hyperglycemia (HCC) Expected: 03/19/2022, Expires: 05/19/2022 [facility] Work Phone: Comment on above: Expected: 03/19/2022, Expires: 2 Start: 03-19-2022 End: 05-19-2022 Lipid 1996 panel - Serum or Plasma LIPID PANEL BASIC Lab Routine Uncontrolled type 2 diabetes mellitus with hyperglycemia (HCC) Expected: 03/19/2022, Expires: 05/19/2022 [facility] Work Phone: Comment on above: Expected: 03/19/2022, Expires: 2 Start: 02-18-2022 End: 02-19-2022 Amylase [Enzymatic activity/volume] in Serum or Plasma AMYLASE BLD Lab STAT CML (chronic myeloid leukemia) (HCC) Expected: 02/18/2022, Expires: 02/19/2022 [facility] Work Phone: Comment on above: Expected: 02/18/2022, Expires: 2 Start: 02-18-2022 End: 02-19-2022 aPTT in Platelet poor plasma by Coagulation assay ACTIVATED PTT Lab STAT CML (chronic myeloid leukemia) (HCC) Expected: 02/18/2022, Expires: 02/19/2022 [facility] Work Phone: Comment on above: Expected: 02/18/2022, Expires: 2 Start: 02-18-2022 End: 02-19-2022 Bilirubin.conjugated [Mass/volume] in Serum or Plasma BILIRUBIN DIRECT BLD Lab STAT CML (chronic myeloid leukemia) (HCC) Expected: 02/18/2022, Expires: 02/19/2022 [facility] Work Phone: Comment on above: Expected: 02/18/2022, Expires: 2 Start: 02-18-2022 End: 02-19-2022 CBC W Auto Differential panel - Blood CBC + DIFF Lab STAT CML (chronic myeloid leukemia) (HCC) Expected: 02/18/2022, Expires: 02/19/2022 [facility] Work Phone: Comment on above: Expected: 02/18/2022, Expires: 2 Start: 02-18-2022 End: 02-19-2022 Cholesterol [Mass/volume] in Serum or Plasma CHOLESTEROL BLD Lab STAT CML (chronic myeloid leukemia) ([facility]) Expected: 02/18/2022, Expires: 02/19/2022 [facility] Work Phone: Comment on above: Expected: 02/18/2022, Expires: 2 Start: 02-18-2022 End: 02-19-2022 CLINICAL TRIAL DRAW CLINICAL TRIAL DRAW Lab STAT CML (chronic myeloid leukemia) ([facility]) Expected: 02/18/2022, Expires: 02/19/2022 [facility] Work Phone: Comment on above: Expected: 02/18/2022, Expires: 2 Start: 02-18-2022 End: 02-19-2022 Comprehensive metabolic 2000 panel - Serum or Plasma COMP METABOLIC PANEL Lab STAT CML (chronic myeloid leukemia) ([facility]) Expected: 02/18/2022, Expires: 02/19/2022 [facility] Work Phone: Comment on above: Expected: 02/18/2022, Expires: 2 Start: 02-18-2022 End: 02-19-2022 Creatine kinase [Enzymatic activity/volume] in Serum or Plasma CK CREATINE KINASE Lab STAT CML (chronic myeloid leukemia) ([facility]) Expected: 02/18/2022, Expires: 02/19/2022 [facility] Work Phone: Comment on above: Expected: 02/18/2022, Expires: 2 Start: 02-18-2022 End: 02-19-2022 HDL CHOLESTEROL BLD HDL CHOLESTEROL BLD Lab STAT CML (chronic myeloid leukemia) ([facility]) Expected: 02/18/2022, Expires: 02/19/2022 [facility] Work Phone: Comment on above: Expected: 02/18/2022, Expires: 2 Start: 02-18-2022 End: 02-19-2022 Lipase [Enzymatic activity/volume] in Serum or Plasma LIPASE BLD Lab STAT CML (chronic myeloid leukemia) (HCC) Expected: 02/18/2022, Expires: 02/19/2022 [facility] Work Phone: Comment on above: Expected: 02/18/2022, Expires: 2 Start: 02-18-2022 End: 02-19-2022 Magnesium [Mass/volume] in Serum or Plasma MAGNESIUM BLD Lab STAT CML (chronic myeloid leukemia) ([facility]) Expected: 02/18/2022, Expires: 02/19/2022 [facility] Work Phone: Comment on above: Expected: 02/18/2022, Expires: 2 Start: 02-18-2022 End: 02-19-2022 Phosphate [Mass/volume] in Serum or Plasma PHOSPHORUS INORGANIC Lab STAT CML (chronic myeloid leukemia) ([facility]) Expected: 02/18/2022, Expires: 02/19/2022 [facility] Work Phone: Comment on above: Expected: 02/18/2022, Expires: 2 Start: 02-18-2022 End: 02-19-2022 PT panel - Platelet poor plasma by Coagulation assay PROTHROMBIN TIME/PT Lab STAT CML (chronic myeloid leukemia) (HCC) Expected: 02/18/2022, Expires: 02/19/2022 [facility] Work Phone: Comment on above: Expected: 02/18/2022, Expires: 2 Start: 02-18-2022 End: 02-19-2022 Triglyceride [Mass/volume] in Serum or Plasma TRIGLYCERIDES BLD Lab STAT CML (chronic myeloid leukemia) (HCC) Expected: 02/18/2022, Expires: 02/19/2022 [facility] Work Phone: Comment on above: Expected: 02/18/2022, Expires: 2 Start: 02-18-2022 End: 02-19-2022 TROPONIN T TROPONIN T Lab STAT CML (chronic myeloid leukemia) ([facility]) Expected: 02/18/2022, Expires: 02/19/2022 [facility] Work Phone: Comment on above: Expected: 02/18/2022, Expires: 2 Start: 02-18-2022 End: 02-19-2022 Urate [Mass/volume] in Serum or Plasma URIC ACID BLOOD Lab STAT CML (chronic myeloid leukemia) ([facility]) Expected: 02/18/2022, Expires: 02/19/2022 [facility] Work Phone: Comment on above: Expected: 02/18/2022, Expires: 2 Start: 02-18-2022 End: 02-19-2022 URINALYSIS, DIPSTICK ONLY URINALYSIS, DIPSTICK ONLY Lab STAT CML (chronic myeloid leukemia) ([facility]) Expected: 02/18/2022, Expires: 02/19/2022 [facility] Work Phone: Comment on above: Expected: 02/18/2022, Expires: 2 Start: 02-15-2022 End: 04-17-2022 BCR/ABL1 P190 QUANTITATIVE PCR BLOOD BCR/ABL1 P190 QUANTITATIVE PCR BLOOD Lab Routine CML (chronic myeloid leukemia) ([facility]) Expected: 02/15/2022, Expires: 04/17/2022 [facility] Work Phone: Comment on above: Expected: 02/15/2022, Expires: 2 Start: 02-15-2022 End: 04-17-2022 BCR/ABL1 P210 QUANTITATIVE PCR BLOOD BCR/ABL1 P210 QUANTITATIVE PCR BLOOD Lab Routine CML (chronic myeloid leukemia) ([facility]) Expected: 02/15/2022, Expires: 04/17/2022 [facility] Work Phone: Comment on above: Expected: 02/15/2022, Expires: 2 Start: 02-07-2022 Influenza vaccination [facility] Start: 12-04-2021 End: 02-03-2022 BCR/ABL1 P210 QUANTITATIVE PCR BLOOD BCR/ABL1 P210 QUANTITATIVE PCR BLOOD Lab Routine CML (chronic myelocytic leukemia) ([facility]) Expected: 12/04/2021, Expires: 02/03/2022 [facility] Work Phone: Comment on above: Expected: 12/04/2021, Expires: 2 Start: 11-26-2021 End: 11-27-2021 Amylase [Enzymatic activity/volume] in Serum or Plasma AMYLASE BLD Lab STAT CML (chronic myeloid leukemia) ([facility]) Expected: 11/26/2021, Expires: 11/27/2021 [facility] Work Phone: Comment on above: Expected: 11/26/2021, Expires: 2 Start: 11-26-2021 End: 11-27-2021 aPTT in Platelet poor plasma by Coagulation assay ACTIVATED PTT Lab STAT CML (chronic myeloid leukemia) ([facility]) Expected: 11/26/2021, Expires: 11/27/2021 [facility] Work Phone: Comment on above: Expected: 11/26/2021, Expires: 2 Start: 11-26-2021 End: 11-27-2021 Bilirubin.conjugated [Mass/volume] in Serum or Plasma BILIRUBIN DIRECT BLD Lab STAT CML (chronic myeloid leukemia) ([facility]) Expected: 11/26/2021, Expires: 11/27/2021 [facility] Work Phone: Comment on above: Expected: 11/26/2021, Expires: 2 Start: 11-26-2021 End: 11-27-2021 CBC W Auto Differential panel - Blood CBC + DIFF Lab STAT CML (chronic myeloid leukemia) ([facility]) Expected: 11/26/2021, Expires: 11/27/2021 [facility] Work Phone: Comment on above: Expected: 11/26/2021, Expires: 2 Start: 11-26-2021 End: 11-27-2021 Cholesterol [Mass/volume] in Serum or Plasma CHOLESTEROL BLD Lab STAT CML (chronic myeloid leukemia) ([facility]) Expected: 11/26/2021, Expires: 11/27/2021 [facility] Work Phone: Comment on above: Expected: 11/26/2021, Expires: 2 Start: 11-26-2021 End: 11-27-2021 CK CREATINE KINASE CK CREATINE KINASE Lab STAT CML (chronic myeloid leukemia) ([facility]) Expected: 11/26/2021, Expires: 11/27/2021 [facility] Work Phone: Comment on above: Expected: 11/26/2021, Expires: 2 Start: 11-26-2021 End: 11-27-2021 CLINICAL TRIAL DRAW CLINICAL TRIAL DRAW Lab STAT CML (chronic myeloid leukemia) ([facility]) Expected: 11/26/2021, Expires: 11/27/2021 [facility] Work Phone: Comment on above: Expected: 11/26/2021, Expires: 2 Start: 11-26-2021 End: 11-27-2021 Comprehensive metabolic 2000 panel - Serum or Plasma COMP METABOLIC PANEL Lab STAT CML (chronic myeloid leukemia) ([facility]) Expected: 11/26/2021, Expires: 11/27/2021 [facility] Work Phone: Comment on above: Expected: 11/26/2021, Expires: 2 Start: 11-26-2021 End: 11-27-2021 HDL CHOLESTEROL BLD HDL CHOLESTEROL BLD Lab STAT CML (chronic myeloid leukemia) ([facility]) Expected: 11/26/2021, Expires: 11/27/2021 [facility] Work Phone: Comment on above: Expected: 11/26/2021, Expires: 2 Start: 11-26-2021 End: 11-27-2021 Lipase [Enzymatic activity/volume] in Serum or Plasma LIPASE BLD Lab STAT CML (chronic myeloid leukemia) ([facility]) Expected: 11/26/2021, Expires: 11/27/2021 [facility] Work Phone: Comment on above: Expected: 11/26/2021, Expires: 2 Start: 11-26-2021 End: 11-27-2021 Magnesium [Mass/volume] in Serum or Plasma MAGNESIUM BLD Lab STAT CML (chronic myeloid leukemia) (HCC) Expected: 11/26/2021, Expires: 11/27/2021 [facility] Work Phone: Comment on above: Expected: 11/26/2021, Expires: 2 Start: 11-26-2021 End: 11-27-2021 Phosphate [Mass/volume] in Serum or Plasma PHOSPHORUS INORGANIC Lab STAT CML (chronic myeloid leukemia) (HCC) Expected: 11/26/2021, Expires: 11/27/2021 [facility] Work Phone: Comment on above: Expected: 11/26/2021, Expires: 2 Start: 11-26-2021 End: 11-27-2021 PT panel - Platelet poor plasma by Coagulation assay PROTHROMBIN TIME/PT Lab STAT CML (chronic myeloid leukemia) (HCC) Expected: 11/26/2021, Expires: 11/27/2021 [facility] Work Phone: Comment on above: Expected: 11/26/2021, Expires: 2 Start: 11-26-2021 End: 11-27-2021 Triglyceride [Mass/volume] in Serum or Plasma TRIGLYCERIDES BLD Lab STAT CML (chronic myeloid leukemia) (HCC) Expected: 11/26/2021, Expires: 11/27/2021 [facility] Work Phone: Comment on above: Expected: 11/26/2021, Expires: 2 Start: 11-26-2021 End: 11-27-2021 TROPONIN T TROPONIN T Lab STAT CML (chronic myeloid leukemia) (HCC) Expected: 11/26/2021, Expires: 11/27/2021 [facility] Work Phone: Comment on above: Expected: 11/26/2021, Expires: 2 Start: 11-26-2021 End: 11-27-2021 Urate [Mass/volume] in Serum or Plasma URIC ACID BLOOD Lab STAT CML (chronic myeloid leukemia) (HCC) Expected: 11/26/2021, Expires: 11/27/2021 [facility] Work Phone: Comment on above: Expected: 11/26/2021, Expires: 2 Start: 11-26-2021 End: 11-27-2021 URINALYSIS, DIPSTICK ONLY URINALYSIS, DIPSTICK ONLY Lab STAT CML (chronic myeloid leukemia) (HCC) Expected: 11/26/2021, Expires: 11/27/2021 [facility] Work Phone: Comment on above: Expected: 11/26/2021, Expires: 2 Start: 06-23-2021 COLORECTAL CANCER SCREENING COLORECTAL CANCER SCREENING [facility] Start: 06-23-2021 FECAL OCCULT BLOOD FECAL OCCULT BLOOD [facility] Start: 06-23-2021 Screening for malignant neoplasm of colon [facility] Start: 06-09-2021 DEPRESSION ASSESSMENT DEPRESSION ASSESSMENT [facility] Start: 02-07-2021 Influenza vaccination INFLUENZA (#1) [facility] Start: 12-16-2020 DTaP,Tdap and Td Vaccines (2 - Td or Tdap) DTaP,Tdap and Td Vaccines (2 - Td or Tdap) [facility] Start: 12-16-2020 Urine microalbumin profile [facility] Start: 10-17-2020 COVID-19 VACCINE (3 - Pfizer risk 4-dose series) COVID-19 VACCINE (3 - Pfizer risk 4-dose series) [facility] Start: 10-17-2020 COVID-19 VACCINE (3 - Pfizer risk series) COVID-19 VACCINE (3 - Pfizer risk series) [facility] Start: 2018 SHINGRIX VACCINE (1 of 2) SHINGRIX VACCINE (1 of 2) [facility] Start: 05-20-2018 PNEUMOCOCCAL (2 - PPSV23 if available, else PCV20) PNEUMOCOCCAL (2 - PPSV23 if available, else PCV20) [facility] Start: 05-20-2018 PNEUMOCOCCAL (2 - PPSV23 or PCV20) PNEUMOCOCCAL (2 - PPSV23 or PCV20) [facility] Start: 05-05-2018 Glaucoma screening Dilated Retinal Exam [facility] Start: 05-05-2018 Hepatitis C antibody, confirmatory test DILATED RETINAL EXAM [facility] Start: 07-15-2017 PNEUMOCOCCAL (2 - PPSV23 if available, else PCV20) PNEUMOCOCCAL (2 - PPSV23 if available, else PCV20) [facility] Start: 07-15-2017 PNEUMOCOCCAL (2 - PPSV23 or PCV20) PNEUMOCOCCAL (2 - PPSV23 or PCV20) [facility] Start: 07-15-2017 Pneumococcal vaccination [facility] Start: 2013 COLOGUARD (FIT-DNA) COLOGUARD (FIT-DNA) [facility] Start: 2013 Colonoscopy COLONOSCOPY [facility] Start: [address] COLONOGRAPHY [facility] Start: 2013 Screening for malignant neoplasm of colon [facility] Start: 2013 SIGMOIDOSCOPY SIGMOIDOSCOPY [facility] Start: 09-26-1987 Administration of varicella zoster vaccine Zoster (Shingles) Vaccine (1 of 2) [facility] Start: 09-26-1987 Hepatitis B Vaccine (1 of 3 - 19+ 3-dose series) Hepatitis B Vaccine (1 of 3 - 19+ 3-dose series) [facility] Start: 09-26-1987 SHINGRIX VACCINE (1 of 2) SHINGRIX VACCINE (1 of 2) [facility] Start: 1986 Adult BMI Follow Up Plan Adult BMI Follow Up Plan [facility] Start: 1986 ANNUAL PCP TEAM CHRONIC DISEASE VISIT ANNUAL PCP TEAM CHRONIC DISEASE VISIT [facility] Start: 1986 BP CONTROLLED (<130/80) BP CONTROLLED (<130/80) [facility] Start: 1986 Diabetic foot examination Diabetic Foot Exam [facility] Start: 1980 Depression Screening Depression Screening [facility] Start: 1978 3 comp foot exam completed DIABETIC FOOT EXAM [facility] Start: 1978 Diabetic foot examination Diabetic Foot Exam [facility] Start: 1968 Glaucoma screening Diabetic Ophthalmology Exam [facility] Start: 1968 HEPATITIS B (1 of 3 - 3-dose series) HEPATITIS B (1 of 3 - 3-dose series) [facility] Start: 1968 Hepatitis B Vaccine (1 of 3 - 3-dose series) Hepatitis B Vaccine (1 of 3 - 3-dose series) [facility] Diagnostic bone marko ow biopsies IMAGING GUIDED BIOPSY BONE MARROW (HEMATOLOGY) Radiology Routine CML (chronic myeloid leukemia) (HCC) Ordered: 01/14/2022 [facility] Work Phone: Comment on above: Ordered: 01/14/2022 Diagnostic bone marko ow biopsies IMAGING GUIDED BIOPSY BONE MARROW (HEMATOLOGY) Radiology Routine CML (chronic myeloid leukemia) (HCC) Ordered: 08/07/2022 [facility] Work Phone: Comment on above: Ordered: 08/07/2022 Diagnostic bone marko ow biopsies IMAGING GUIDED BIOPSY BONE MARROW (HEMATOLOGY) Radiology Routine CML (chronic myeloid leukemia) (HCC) Ordered: 05/22/2023 [facility] Work Phone: Comment on above: Ordered: 05/22/2023 End: 09-10-2022 ECG COMPLETE ECG COMPLETE ECG Routine CML (chronic myeloid leukemia) (HCC) 1 Occurrences starting 09/10/2021 until 09/10/2022 [facility] Work Phone: Comment on above: 1 Occurrences starting 09/10/2021 until 09/10/2022 End: 11-26-2022 ECG COMPLETE ECG COMPLETE ECG Routine CML (chronic myeloid leukemia) (HCC) 1 Occurrences starting 11/27/2021 until 11/26/2022 [facility] Work Phone: Comment on above: 1 Occurrences starting 11/27/2021 until 11/26/2022 End: 12-03-2022 ECG COMPLETE ECG COMPLETE ECG Routine CML (chronic myeloid leukemia) (HCC) 1 Occurrences starting 12/04/2021 until 12/03/2022 [facility] Work Phone: Comment on above: 1 Occurrences starting 12/04/2021 until 12/03/2022 End: 09-10-2022 Echocardiography ECHO Cardiology Routine CML (chronic myeloid leukemia) (HCC) 1 Occurrences starting 09/10/2021 until 09/10/2022 [facility] Work Phone: Comment on above: 1 Occurrences starting 09/10/2021 until 09/10/2022 End: 11-26-2022 Echocardiography ECHO Cardiology Routine CML (chronic myeloid leukemia) (HCC) 1 Occurrences starting 11/27/2021 until 11/26/2022 [facility] Work Phone: Comment on above: 1 Occurrences starting 11/27/2021 until 11/26/2022 End: 01-10-2023 Echocardiography ECHO Cardiology Routine CML (chronic myeloid leukemia) (HCC) 1 Occurrences starting 01/14/2022 until 01/10/2023 [facility] Work Phone: Comment on above: 1 Occurrences starting 01/14/2022 until 01/10/2023 End: 05-10-2023 Echocardiography ECHO Cardiology Routine CML (chronic myelocytic leukemia) (HCC) 1 Occurrences starting 05/23/2022 until 05/10/2023 [facility] Work Phone: Comment on above: 1 Occurrences starting 05/23/2022 until 05/10/2023 End: 12-05-2023 Echocardiography ECHO Cardiology Routine CML (chronic myeloid leukemia) (HCC) 1 Occurrences starting 12/05/2022 until 12/05/2023 [facility] Work Phone: Comment on above: 1 Occurrences starting 12/05/2022 until 12/05/2023 End: 01-23-2024 Echocardiography ECHO Cardiology Routine Chronic myeloid leukemia (HCC) 1 Occurrences starting 01/23/2023 until 01/23/2024 [facility] Work Phone: Comment on above: 1 Occurrences starting 01/23/2023 until 01/23/2024 [facility] Immunizations Immunization Date Immunization Notes Care Provider Feliciano lindo 09-19-2020 COVID-19 vaccine, ag e 12+ yr (PFIZER-BIONTECH - PURPLE TOP) Emma Tuttle RN [facility] 08-29-2020 COVID-19 vaccine, ag e 12+ yr (PFIZER-BIONTECH - PURPLE TOP) Emma Tuttle [facility] 04-21-2018 influenza, injectabl e, quadrivalent, preservative free Emma Tuttle [facility] 04-21-2018 influenza virus vacc ine, unspecified formulation Kylee Dalal APRN.POLYSOMNOGRAPHY TECHNOLOGIST Work Phone: [facility] 05-21-2017 influenza, injectabl e, quadrivalent, preservative free Emma Tuttle [facility] 05-20-2017 influenza nasal, unspecified formulation Emma Tuttle [facility] 05-20-2017 pneumococcal conjuga te vaccine, 13 valent Emma Tuttle [facility] 07-19-2016 influenza, seasonal, injectable, preservative free Emma Tuttle [facility] 12-16-2010 tetanus toxoid, redu preet diphtheria toxoid, and acellular pertussis vaccine, adsorbed Emma Tuttle [facility] 07-13-2009 novel influenza-H1N1 -09, preservative-free, injectable Emma Tuttle [facility] Payers Date Payer Category Payer Self-pay [id number] 2022 Medicaid [id number] 2022 Medicaid [id number] 2021 Private Health Insurance [id number] 2020 Medicaid [employer] MEDICAID [id number] 2020-Present [phone] [address] [place] [address] Medicaid [id number] 2020 Private Health Insurance [id number] 2019 Unknown [id number] 1968 Unknown [id number] [id number]. 593 1968 Unknown [id number] 2.16.840.1.242933.3.579.2. 593 1968 Unknown [id number] 2.16.840.1.772885.3.579.2. 593 1968 Unknown [id number] 2.16.840.1.028860.3.579.2. 593 1968 Unknown [id number] 2.16.840.1.193864.3.579.2. 593 1968 Unknown [id number] 2.16.840.1.805684.3.579.2. 593 1968 Unknown [id number] 2.16.840.1.505613.3.579.2. 1286 1968 Unknown [id number] 2.16.840.1.508560.3.579.2. 1259 1968 Unknown [id number] 2.16.840.1.981469.3.579.2. 1259 1968 Unknown [id number] 2.16.840.1.914425.3.579.2. 1286 1968 Unknown [id number] 2.16.840.1.785218.3.579.2. 1286 1968 Unknown [id number] 2.16.840.1.538459.3.579.2. 1286 1968 Unknown [id number] 2.16.840.1.420302.3.579.2. 1286 1959 Unknown [id number] 1959 Unknown [id number] 1959 Unknown [id number] Unknown [place] BC/BS [id number] Unknown Regular Insurance [id number] Unknown [id number]. 531 Social History Date Type Detail Facility Start: 02-18-2022 End: 05-16-2022 Tobacco smoking status NHIS Never smoked tobacco [facility] Start: 09-03-2021 End: 08-29-2023 Alcohol intake Current drinker of alcohol (finding) [facility] Start: 1970 Sex Assigned At Not on file [facility] Start: 08-24-2021 End: 05-13-2022 Exposure to SARS-CoV-2 (event) Not sure [facility] Start: 02-18-2022 End: 05-16-2022 Tobacco use and exposure Smokeless tobacco non-user [facility] Start: 10-15-2022 End: 10-30-2022 History of Social function [facility] Start: 10-15-2022 End: 10-30-2022 Tobacco use panel [facility] Adult Depression Screening Assessment 1 [facility] Start: 1970 Sex Assigned At Male F [facility] Start: 03-20-2023 Alcohol Comment social, rare [facility] Start: 03-23-2023 Gender identity Identifies as male gender (finding) [facility] Start: 03-23-2023 Sexual orientation Heterosexual (fin ding) [facility] Medical Equipment Procedure Code Equipment Code Equipment Origin al Text Equipment Identifier Dates Use with blood glucose test one time daily [id number] Start: 08-29-2023 Comment on above: Use with blood gluco se test one time daily Clinical Notes 09-03-2021 to 10-03-2023 Emma Tuttle RN - 10/01/2023 3:54 PM Raheem Felton, Research Coordinator - 10/01/2023 11:50 AM EDTTelephone Encounter - Sherrell Esteves CMA - 09/10/2023 2:18 PM EDTPatient Instructions Note Date & Type Note [facility] 10-03-2023 Note [facility] 10-01-2023 Note [facility] 10-01-2023 History of Present illness Narrative Summary: ACT 1920 / 20-998 cycle 42 day 28 ACTG 192 A phase 1b study of the pharmacokinetics, safety and efficacy of orally administered [id number] in subjects with refractory chronic myeloid leukemia (CML). Patient is here for screening for ACTG 1920 / IRB 8. 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 06/19/2020 Patient met all inclusion and exclusion criteria and deemed eligible to participate on the study by the sponsor 10/01/2023 Cycle 42 day 28 Subject #: [id number] Patient met with research team, pleasant and engaged in conversation. Patient denies any side effects to report. 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 Patient reported that he is using a cream for the callous. discussed plan of care to continue on clinical trial. Patient verbalized understanding and is in agreement. reviewed all labs and AE's. ECHO: done 10/01/2023 LVEF 58% BMBx: scheduled for 10/03/2023 EKG: QTcF 416 ms, 410 ms, 418 ms PE: ECO Ankle-brachial index: 0930 Left brachial 139/69 Left ankle 170/78 VS: 10/01/23 Weight 120.2 kg (264 lb 15.9 oz) [1] BSA 0 BMI 0 Temp 36 C (96.8 F) Pulse 59 ! [2] Resp 18 BP 143/70 !: Data is abnormal [1] shoes on [2] provider notified PAST MEDICAL HISTORY Diagnosis Date Status CML (chronic myelocytic leukemia) (HCC) 12/2011 Active chronic phase not controlled Hypertension 09/14/2015 Active controlled without medication ADHD >10 years Active controlled without medication Gastritis Not active Chronic diarrhea ~2011 Not active Morbid obesity >10 years Active back pain >10 years Active controlled with medication chronic pruritic rash >10 years Active intermittently controlled without medication moderate upper septal asymmetric left ventricular hypertrophy 05/05/2017 Present floaters in both eyes (eye exam 05/05) 939900 Active no medication or treatment Diabetes 12/2019 Active controlled with medication Rash 11/2019 Active uncontrolled,medication to start 05/29/2020 PAST SURGICAL HISTORY BACK SURGERY HX L4 and L5 infusion Prior to 03/2012 SC ANESTH,KNEE JOINT; NOS right knee Prior to 03/2012 REMOVAL GALLBLADDER Prior to 03/2012 TONSILLECTOMY Prior to 03/2012 Social history: Patient has been for 26 years with adult children. Patient denies illegal drug use and drinks alcohol very rarely. Patient is a non-smoker. Transfusion History: None History of Prior Medical Treatments for CML: Gleevec 02/12/2012 - 11/2012 Nilotinib 12/2012 - 02/2013 Dasatinib 02/2013 - 12/2014 Nilotinib 12/2014 -- 03/2016 Bosutinib 03/2016 - 05/02/2017 [facility] 2915 15-875 trial of Ponatinib 05/21/2017 - 07/15/2019 pegylated interferon amber-2a on 12/14/2019 - 01/27/2020 BCR-ABL mutation history: bcr-abl transcript levels reported at 2.65% IS on 11/03/2012 bcr-abl transcript levels reported 1.89% IS on 02/26/2013 bcr-abl transcript levels reported 0.26% IS on 11/29/2013 bcr-abl transcript levels reported 1.34% IS in 05/2015 2.16 in November of 2015 72.6 in February of 2016 bcr-ab transcript levels to 3 in Jun went up to 15.78. 04/24/2017 - 75.76% IS (prior to starting ponatinib at 45 mg on 05/21/2017) 05/02/2017 - 70% IS 08/12/2017 - 3.4% IS (~3 months of ponatinib at 45 mg) 11/04/2017 - 1.2% IS 01/27/2018 - 1.1% IS 04/21/2018 - 0.85% IS (30 mg ponatinib) BCR-ABL transcripts have been gradually increasing since decreased dose of Ponatinib. Last level drawn on 03/2019 noted 9.5% IS. 10/30/2022 BCR/ABL1 %IS 1.1278 BCR/ABL1 P210 MR 1.95 01/22/2023 BCR/ABL1 P210 .78 04/16/2023 results pending Medications: NKA Medication Dose Start Date Stop Date Comments Ibuprofen 800 mg once daily as needed per patient 10/2015 For general body aches Insulin Lantus 50 units daily Per patient 05/2022 For diabetes Hydrea 500 mg 2 capsules by mouth once daily 12/2019 ~ 04/17/2020 For leukocytosis Hydrea 500 mg capsules orally twice a day 05/01/2020 05/11/2020 increased to 05/11/2020 For leukocytosis Hydrea (2) 500 mg capsules orally 2x/day 05/11/2020 05/17/2020 For leukocytosis Hydrea (2) 500 mg capsules orally 3x/day 05/17/2020 05/22/2020 For leukocytosis Hydrea Tapering dose: (2) 500 mg capsules orally 2x/day for 3 days. Then (2) 500 mg capsules orally once a day for 2 days then stop. 05/22/2020 05/26/2020 For leukocytosis Kenalog cream Apply 2x/day to affected areas. 05/29/2020 For rash Hydrea (2) 500 mg capsules orally 2x/day 06/12/2020 06/16/2020 For leukocytosis Hydrea (2) 500 mg capsules orally 3x/day 06/16/2020 06/17/2020 For leukocytosis Lovaza (2) 1gm capsules orally 2x/day 06/22/2020 on hold restarted 09/03/2021 Hypertriglyceridemia Advil 400 mg orally every 6 hours as needed 07/10/2020 For headache Decadron 4 mg orally 10/04/2020 10/06/2020 For poison radha Lidex ointment 0.05% Apply twice daily for 2 weeks, then once daily for 2 weeks For rash. Do not apply to face, armpits or groin Colace 100 mg orally once a day as needed 06/07/2021 Constipation Norvasc 10 mg orally once a day 05/13/2022 03/20/2023 Blood pressure Norvasc 5 mg orally once a day 03/20/2023 Blood pressure Lispro (insulin) 10 units sq at breakfast and lunch, 14 units sq at dinner 05/2022 Diabetes Avalon 5/325 mg 1 tab PO x 1 05/16/2022 05/16/2022 Hand pain Zofran 4 mg 4 mg IV x 1 05/16/2022 05/16/2022 Nausea LR 1L 1L IV over one hr x1 05/16/2022 05/16/2022 Dizziness Sliding scale insulin with Humalog If Blood Glucose (mg/dL) is <150 Give 0 units 151-200 Give 2 unit 201-250 Give 4 units 251-300 Give 6 units 301-350 Give 8 units 351-400 Give 10 units >400 Give 12 units and notify provider 07/15/2022 DM Farxiga 10 mg orally once a day 04/17/2023 Diabetes Aquaphor healing lotion Apply as needed 09/17/2023 Right heal callus. Hydrocodone-Acetaminophen Take 1 tab orally every 6 hours 08/06/2023 Broken teeth Amoxicillin 500 mg orally three times a day 08/06/2023 08/15/2023 Lip infection Toxicities: CTCAE V. 5 SCREENING all predate therapy, are chronic conditions and will not be actively followed unless they worsen during the clinical trial. Fasting labs Day -28 06/05/2020 Leukocytosis Grade 3 UNRELATED Start date: 05/01/2020. Resolved: ongoing. Drugs used to treat: yes. Outcome: Still present. Hypertension:Stage Prehypertension Grade 1 UNRELATED Start date:05/01/2020. Resolved: ongoing. Drugs used to treat: none. Outcome: Still present. Hyperglycemia Grade 1 UNRELATED Start date: 05/01/2020. Resolved: ongoing. Drugs used to treat: none. Outcome: Still present Hypertriglyceridemia Grade 1 UNRELATED Start date: 05/22/2020. Resolved: ongoing. Drugs used to treat: none. Outcome: Still present. Rash on trunk of body Grade 1 UNRELATED Start date: 05/29/2020. Resolved: ongoing. Drugs used to treat: yes. Outcome: Still present. Fasting labs Day -7 06/12/2020 Aspartate aminotransferase increased Grade 1 UNRELATED Start date: 06/12/2020. Resolved: ongoing. Drugs used to treat: none. Outcome: Still present. Hyperglycemia Grade 2 UNRELATED Start date: 06/05/2020. Resolved: ongoing. Drugs used to treat:yes. Outcome: Still present. Hypertriglyceridemia Grade 2 UNRELATED Start date: 06/12/2020. Resolved: ongoing. Drugs used to treat: none. Outcome: Still present. Alkaline phosphatase Grade 1 Unrelated (prior to drug)Start date: 06/19/2020. Resolved: ongoing. Drugs used to treat:no Outcome:present intermittently. Hyponatremia Grade 1 Unrelated (prior to drug) Start date 06/19/2020 Resolved:ongoing.Drugs used to treat: no. Outcome: present intermittently Fasting labs 10/01/2023: CTCAE v.5 Hypertension Grade 1 Unrelated Start date 08/14/2020 Resolved:ongoing. Drugs used to treat:no. Outcome: still present. Hypertension Grade 2 Unrelated Start date 06/11/2021 Resolved:ongoing. Drugs used to treat:yes 05/13/2022 Outcome: monitor. Cholesterol high Grade 1 Unrelated Start date: 10/13/2020esolved: ongoing. Drugs used to treat: none. Outcome: still present intermittently. Constipation Grade 1 Unrelated Start date:06/07/2021.Resolved:ongoing. Drugs used to treat: yes. Outcome: present intermittently. Fatigue Grade 1 Unrelated Start date:06/07/2021.Resolved:ongoing. Drugs used to treat: no. Outcome: present intermittently. Right knee pain Grade 1 Unrelated Start date:~01/2022 Resolved: ongoing Drugs used to treat: no. Outcome: present Nausea Grade 1. UNRELATED. Start date:~12/04/2022. Resolve date: ongoing. Drugs to treat: no. Outcome: present intermittently Right shoulder pain Grade 1 Unrelated Start date:~week of 12/07/2022 Resolved: ongoing Drugs used to treat: ibuprofen Outcome: present Hyponatremia Grade 1 Unrelated Start date 01/22/2023 Resolved:ongoing. Drugs used to treat:no. Outcome: still present intermittently. Skin and subcutaneous tissue disorders-Other, specify Right heal callus Grade 1 Unrelated Start date 09/17/2023 Resolved:ongoing. Drugs used to treat:yes. Outcome: still present. Broken teeth Grade 1 Start date 08/06/2023 Resolved:ongoing. Drugs used to treat:yes. Outcome: still present. Lip infection Grade 1 Start date 08/06/2023 Resolved:08/15/2023. Drugs used to treat:yes. Outcome: resolved. Resolved AE's: Hypertriglyceridemia Grade 3 Unrelated(prior to drug) Start date: 06/19/2020. Resolved: 06/26/2020 Drugs used to treat: none. Outcome resolved to baseline day -28 Amylase Grade 1 Possibly related Start date 06/26/20 Resolved:07/03/2020. Drugs used to treat: no. Outcome: resolved. Lipase Grade 3 Possibly related Start date 06/26/20 Resolved:07/03/2020.Drugs used to treat: no. Outcome: resolved. Lipase Grade 1 Possibly related Start date:07/13/2020 Resolved: 07/17/2020 Drugs used to treat: no. Outcome:resolved. Constipation Grade 1 Unrelated Startdate:06/22/20.Resolved:06/23/19. Drugs used to treat: no. Outcome: resolved. Hypoalbuminemia Grade 1 Unrelated Startdate:06/22/20.Resolved: 1Drugs used to treat: no. Outcome: resolved. Platelet count decreased Grade 1 Possibly related Startdate:07/13/20.Resolved:. Drugs used to treat: no. Outcome: resolved. Headache Grade 1 Possibly related Startdate:07/10/2020.Resolved:08/15/19. Drugs used to treat:yes. Outcome: resolved. Lipase Grade 3 Possibly related Start date 08/03/2020 Resolved:08/14/2020.Drugs used to treat: no. Outcome: resolved. Amylase Grade 1 Possibly related Start date 08/03/2020 Resolved:08/14/2020.Drugs used to treat: no. Outcome: resolved. Heart palpitation Grade 1 Unrelated Start date: 08/25/2020. Resolved:08/27/2020. Drugs used to treat:no. Outcome: resolved. Rash Grade 1 Unrelated Start date: 10/04/2020 Resolved:10/06/2020. Drugs used to treat: yes. Outcome:resolved Hyperglycemia Grade 3 Unrelated Start date: 10/13/2020 Resolved: 10/20/2020 Drugs used to treat:yes. Outcome:resolved to Grade 2. Hyponatremia Grade 1 Unrelated (prior to drug) Start date 06/19/2020 Resolved:10/20/2020.Drugs used to treat: no. Outcome: Resolved. Alkaline phosphatase Grade 1 Unrelated (prior to drug)Start date: 06/19/2020. Resolved: 10/27/2020. Drugs used to treat:no Outcome:Resolved. Alanine aminotransferase increased Grade 1 Unrelated Start date: 10/13/2020esolved: 10/20/2020. Drugs used to treat: none. Outcome: Resolved. Lipase increased Grade 1 Possibly related Start date: 10/13/2020esolved: 10/27/2020. Drugs used to treat: none. Outcome: Resolved to normal. Lipase increased Grade 2 Possibly related Start date: 10/20/2020esolved:10/27/2020. Drugs used to treat: none. Outcome: Resolved to normal. Hypertriglyceridemia Grade 3 Possibly related Start date: 10/13/2020. Resolved:10/20/2020 Drugs used to treat: none. Outcome:Resolved to Grade 2. Hypertriglyceridemia Grade 2 Possibly related Start date: 10/20/2020. Resolved:10/27/2020 Drugs used to treat: none. Outcome:Resolved to grade 1 screening. Hypoalbuminemia Grade 1 Unrelated Start date: 10/20/2020. Resolved:11/23/2020 Drugs used to treat: none. Outcome: resolved. Rash Possibly related bilateral lower abdomen, left upper chest, behind both knees, and right scapula area. Grade 1 Unrelated Start date: 11/07/2020 Resolved:02/07/2021. Drugs used to treat:yes. Outcome: resolved. Hypoalbuminemia Grade 1 Unrelated Start date:11/26/2021 Resolved: 02/18/2022 Drugs used to treat: no. Outcome: resolved Dizziness Grade 1. UNRELATED. Start date: 05/16/2022. Resolve date: 05/16/2022. Drugs to treat: LR. Outcome: resolved Lipase Grade 1 Possibly related Start date:09/03/2021 Resolved: 05/13/2022 Drugs used to treat: no. Outcome:resolved Nausea Grade 1. UNRELATED. Start date: 05/16/2022. Resolve date: 05/16/2022. Drugs to treat: zofran. Outcome: resolved Dizziness Grade 1. UNRELATED. Start date: 05/16/2022. Resolve date: 05/16/2022. Drugs to treat: LR. Outcome: resolved Right wrist ganglion cyst Grade 1. UNRELATED. Start date: 04/2022. Resolve date: 05/2022. Drugs to treat: norco. Outcome: resolved Patients last dose of study drug was 09/30/2023 Next dose due on 10/02/2023 Re-educated patient on how to complete the medication diary. Educated patient how to take the drug and how to transport and store drug going forward it can be stored at room temperature. Instructed patient that he will need to return drug and all bottles/unused medication at his next visit. Patient has 3 prong medal folder with drug information, contact information for research team, after hours number. Patient verbalized understanding of all information provided. Patient returned drug diary from previous visit completed. New predated drug diary given. Patient returned: 3 bottles, 2 empty and 1 bottle with 54 pills. The count is accurate. Patient was given drug: yes. 3 bottles of drug. 60 pills per bottle of 10 mg pills. To be dosed with 30 mg of HQP on 04/17/2023 then every other day. Lot# [id number] Patient aware next appointment is 12/24/2023 and can be viewed on [employer]. Patient presented today to participate on the trial ACTG 1920 / IRB [id number]. Patient signed consent previously on 05/29/2020 with nurse present prior to having ANY procedures done. Copy given to the patient. Patient had labs drawn, and then met with the clinical team. Patient understands that he must call nurse or MD prior to taking any new medications as well as to stopping any medications. Patient also understands to call nurse/MD should she have any new medical issues arise and/or goes to the hospital for any reason. Patient is aware to monitor for fevers and to call and/or go to the nearest emergency room for temperatures of 100.4 or greater. 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 Patient understands that this participation is voluntary and that he may withdraw at any time during the trial. Emam Tuttle RN, OCN documented in this encounter [facility] 10-01-2023 [facility] 10-01-2023 History of Present illness Narrative CRC Documentation IRB#: [id number], [facility]#: ACTG 1920, Study Title: A phase 1b study of the pharmacokinetics, safety and efficacy of orally administered [id number] in subjects with refractory chronic myeloid leukemia (CML). Informed Consent signed on 06/19/2020, prior to any study related procedures being performed that are not SOC. Pt Study #: 016-002 Treatment Arm: CML CP and AP Patients Patient presents for Cycle: 42 Day 28 The following research tasks have been completed per protocol: Quality of life questionnaire: Not Required VS completed: No-Completed by Ludy Mead OCCA EKGs ([facility]): Yes Given to RN/Emma Lemus RN for review. Raheem Santos, Research Coordinator documented in this encounter [facility] 09-10-2023 Miscellaneous Notes Left message on patient's answering machine to remind them of their appointment time and to bring a current list of medications with them. documented in this encounter [facility] 09-10-2023 Telephone encounter Note Left message on patient's answering machine to remind them of their appointment time and to bring a current list of medications with them. [facility] 08-29-2023 Note [facility] 08-29-2023 Instructions Kylee Dalal APRN.POLYSOMNOGRAPHY TECHNOLOGIST - 08/29/2023 7:59 AM EDT Plan Continue: Farxiga 10 mg daily Lantus 35 units twice daily Humalog 15-15-20 with meals plus sliding scale If Blood Glucose (mg/dL) is <150 Give 0 units 151-200 Give 2 units 201-250 Give 4 units 251-300 Give 6 units 301-350 Give 8 units 351-400 Give 10 units >400 Give 12 units and notify provider Check your blood glucose 4 times per day using CGM. Glucose targets as: Fasting 80-130, before meals 100-130, and bedtime 100-150 mg/dL. Call the office with blood sugars less than 70 Follow up in 6 months documented in this encounter [facility] 08-29-2023 History of Present illness Narrative Endocrinology Follow Up PCP: Buffy Chung CNP [facility] History of Present Illness Derrell Hsu Sadi MCCOLLUM is a 52 year old male presents today for follow up of DM Type 2. At [facility] increased insulin and started Farxiga. Sugars have greatly improved. Reports he is sometimes missing mealtime insulin. Is fearful of taking while at work at times as he had 3 lows last year. Has a history of CML. He was in a trial for a chemotherapeutic agent (ponatinib) which caused pancreatitis (this is a known adverse effect of this medication). He was hospitalized 4 times for pancreatitis around 2019 and was diagnosed with diabetes afterwards. Has been off of this agent since 2019. Date of Diagnosis: 2019 Last HbA1c: Hemoglobin A1C (%) Date Value 07/09/2023 6.3 01/22/2023 8.5 05/22/2020 9.9 09/07/2019 9.5 07/26/2019 6.8 03/23/2019 6.4 10/06/2018 7.6 Hemoglobin A1C (POCT) (%) Date Value 04/17/2023 8.6 10/15/2022 8.5 07/15/2022 9.1 03/19/2022 9.6 Family history of diabetes includes mother and father. Complications Microvascular: mild DPN, nephropathy Macrovascular: denies Health Maintenance Topics Topic Date Due Diabetic Foot Exam Never done Dilated Retinal Exam 05/05/2018 Prior DM Medications: Metformin- severe diarrhea Current DM Related Medications: Current Medications 08/29/2023 DIABETES THERAPIES Medication Dosage Pharm Subclass dapagliflozin propanediol (FARXIGA) 10 mg tablet Take 1 tablet by mouth daily with breakfast. Antihyperglycemic - Sodium Glucose Cotransporter-2 (SGLT2) Inhibitors insulin glargine (LANTUS SOLOSTAR U-100 INSULIN) 100 unit/mL (3 mL) Inject 35 Units subcutaneously twice daily. Insulin Analogs - Long Acting insulin lispro (HUMALOG KWIKPEN) 100 unit/mL Inject 15 units with breakfast and lunch and 20 units with dinner plus sliding scale (Max daily dose of 91 units daily) Insulin Analogs - Rapid Acting CARDIOVASCULAR Medication Dosage Pharm Subclass amLODIPine (NORVASC) 10 mg tablet Take 10 mg by mouth. Calcium Channel Blockers - Dihydropyridines lisinopril (ZESTRIL) 20 mg tablet Take 20 mg by mouth once daily. ALDEN Inhibitors pravastatin (PRAVACHOL) 40 mg tablet Take 1 tablet by mouth once daily. Antihyperlipidemic - HMG CoA Reductase Inhibitors (statins) OTHER Medication Dosage Pharm Subclass flash glucose scanning reader (InnovisSTYLE MARY ANN 2 READER) Check glucose 4 times daily Medical Supplies and DME - Glucose Monitoring Test Supplies flash glucose sensor (FREESTYLE MARY ANN 2 SENSOR) kit USE DIRECTED EVERY 14 DAYS Medical Supplies and DME - Glucose Monitoring Test Supplies fluocinonide (LIDEX) 0.05 % ointment Apply to affected areas of rash twice daily x 2 weeks, then once daily x 2 weeks. NOT for face, armpits, or groin Dermatological - Glucocorticoid ibuprofen (MOTRIN) 800 mg tablet NSAID Analgesics (DE SOUZA Non-Specific) - Propionic Acid Derivatives Insulin Syringe-Needle U-100 1 mL 25 x 1 syrg Use 1 syringe once daily to administer peg-interferon dose. Medical Supplies and DME - Insulin [place]-Syringes and Admin Supplies omega-3 acid ethyl esters (LOVAZA) 1 gram capsule Take 2 capsules by mouth twice daily. Antihyperlipidemic - Micro-3 Fatty Acid Type Physical Activity: Sedentary Diet: Does not follow a diabetic diet, but making improvements recently SMBG Frequency of Monitorin times daily Summary of Personal CGM Findings: Dates worn: 08/12/23-08/25/23 CGM Type: Mary Ann 1- CGM recording is adequate for interpretation. Worn 40% of time. 2- Average glucose is 160 mg/dl. 3. 81% time in range 70-180mg/dL 4. Coefficient of variation: 16% 5. Total frequency of hypoglycemia: 0% with BG<70 * Hypoglycemia patterns: none *Nocturnal hypoglycemia none noted 6- Hyperglycemic episodes 19% with BG>180 * Hyperglycemia Patterns: not significant Past History, Medications, Allergies PAST MEDICAL HISTORY Diagnosis Date CML (chronic myelocytic leukemia) (HCC) Hypertension PAST SURGICAL HISTORY Procedure Laterality Date ANES OPEN/SURG ARTHROSCOPIC PROC KNEE JOINT NOS right knee BACK SURGERY HX L4 and L5 infusion CHOLECYSTECTOMY TONSILLECTOMY HX ALLERGIES Allergen Reactions Opioids - Morphine * Vomiting, GI Upset History reviewed. No pertinent family history. Social History Tobacco Use Smoking status: Never Smokeless tobacco: Never Vaping Use Vaping Use: Never used Substance Use Topics Alcohol use: Yes Comment: socially Drug use: No Review of Systems GENERAL: No weight loss, malaise or fevers RESPIRATORY: Negative for cough, hemoptysis, wheezing, COPD, dyspnea or shortness of breath CARDIOVASCULAR: Negative for chest pain, leg swelling, hypertension, CHF or palpitations GI: No nausea, vomiting, or diarrhea ENDOCRINE: Negative for cold or heat intolerance, polyuria, polydipsia and goiter NEUROLOGIC:Negative for focal numbness or weakness, headaches and dizziness or syncope. Physical examination BP 120/62 Pulse 61 Wt 122 kg (268 lb 15.4 oz) SpO2 97% BMI 38.59 kg/m General appearance: Well appearing, alert, in no acute distress, well-hydrated, well nourished. Skin: Skin color, texture, turgor normal, no suspicious rashes or lesions HEART: normal rate LUNGS: unlabored, normal respiratory rate EXTREMITIES No deformities, No skin discoloration and No edema NEURO: Speech normal, mental status intact, no tremor noted. Previous Laboratory Results LABS Glucose (mg/dL) Date Value 07/09/2023 108 04/18/2023 126 04/16/2023 166 06/11/2021 173 03/13/2021 159 12/22/2020 231 Potassium (mmol/L) Date Value 07/09/2023 4.6 06/11/2021 4.4 Sodium (mmol/L) Date Value 07/09/2023 135 04/18/2023 135 04/16/2023 136 06/11/2021 137 03/13/2021 135 12/22/2020 135 Chloride (mmol/L) Date Value 07/09/2023 101 04/18/2023 100 04/16/2023 99 06/11/2021 100 03/13/2021 100 12/22/2020 103 CO2 (mmol/L) Date Value 07/09/2023 23 04/18/2023 23 04/16/2023 27 06/11/2021 26 03/13/2021 23 12/22/2020 24 Creatinine (mg/dL) Date Value 07/09/2023 0.63 04/18/2023 0.72 04/16/2023 0.65 06/11/2021 0.71 03/13/2021 0.60 12/22/2020 0.60 BUN (mg/dL) Date Value 07/09/2023 10 04/18/2023 12 04/16/2023 9 06/11/2021 16 03/13/2021 14 12/22/2020 19 Anion Gap (mmol/L) Date Value 07/09/2023 11 04/18/2023 12 04/16/2023 10 06/11/2021 11 03/13/2021 12 12/22/2020 8 Calcium (mg/dL) Date Value 06/11/2021 9.9 03/13/2021 9.5 12/22/2020 9.2 Calcium, Total (mg/dL) Date Value 07/09/2023 9.6 04/18/2023 10.0 04/16/2023 9.9 eGFR- (no units) Date Value 06/11/2021 >60 03/13/2021 >60 12/22/2020 >60 eGFR-All Other Races (.) Date Value 06/11/2021 >60 03/13/2021 >60 12/22/2020 >60 Estimated Glomerular Filtration Rate (mL/min/1.73m ) Date Value 07/09/2023 113 04/18/2023 109 04/16/2023 112 ALT (U/L) Date Value 07/09/2023 51 04/18/2023 48 04/16/2023 71 06/11/2021 38 03/13/2021 38 12/22/2020 26 TSH Date Value Ref Range Status 04/07/2020 2.410 0.270 - 4.200 uU/mL Final 03/24/2020 2.230 0.270 - 4.200 uU/mL Final 03/06/2020 1.950 0.270 - 4.200 uU/mL Final Free T4 Date Value Ref Range Status 01/31/2020 1.9 (H) 0.9 - 1.7 ng/dL Final Impression/Recommendations IMPRESSION Derrell Avitia JR is a 52 year old here for evaluation of 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 RECOMMENDATIONS: 1. Glycemic control: Target HbA1C is less than 7.0% per ADA guidelines. Patient is at target. Significant improvement in glycemic control since starting SGLT2i. Continue current regimen. We had a long discussion at previous office visit about possibility of starting a GLP1RA in the future despite his known history of pancreatitis. He has insulin resistance and obesity and would ultimately benefit from one of these. From chart review, it appears each pancreatitis was directly related to a chemotherapeutic agent he was on at the time (as it is a known adverse effect) and he has been off of this since 2019. He is amenable to trying in the future, but we would need to confer with his clinical team managing his CML. Plan Continue: Farxiga 10 mg daily Lantus 35 units twice daily Humalog 15-15-20 with meals plus sliding scale If Blood Glucose (mg/dL) is <150 Give 0 units 151-200 Give 2 units 201-250 Give 4 units 251-300 Give 6 units 301-350 Give 8 units 351-400 Give 10 units >400 Give 12 units and notify provider Check your blood glucose 4 times per day using CGM. Glucose targets as: Fasting 80-130, before meals 100-130, and bedtime 100-150 mg/dL. Call the office with blood sugars less than 70 Follow up in 6 months Patient to continue to follow up with his PCP and with other consultants regarding his other medical problems. The patient was reminded to check their blood glucose as directed and to record the data in a logbook. This patient was advised to bring their logbook to each office visit. I recommended at least 150 minutes per week of moderate physical activity, such as walking and to reduce carbohydrates and overall caloric intake. 2. Hypertension/BP control: BP goal for patients with diabetes is 130/80. -- Controlled. Managed by PCP. 3. Lipids: Target LDL cholesterol in patients with diabetes is less than 100, less than 70 if patient has overt CVD. Several studies have shown cardiovascular benefits of statin therapy in all patients with diabetes over age 40 with at least 1 CVD risk factor. Cholesterol, Total Date Value Ref Range Status 07/09/2023 247 (H) <200 mg/dL Final Comment: <200 mg/dL, Desirable 200-239 mg/dL, Borderline high >239 mg/dL, High Reference: 1. National Cholesterol Education Program ATP III Guideline At-A-Glance Quick Desk Reference: National Heart, Lung, and Blood [place]. National Institutes of Health. 2001: [facility] Publication No. 330. HDL Cholesterol Date Value Ref Range Status 05/13/2022 38 (L) >39 mg/dL Final Comment: 40-59 mg/dL, Acceptable >59 mg/dL, High: Negative risk factor for coronary heart disease <40 mg/dL, Low: Positive risk factor for coronary heart disease Reference: 1. National Cholesterol Education Program ATP III Guideline At-A-Glance Quick Desk Reference: National Heart, Lung, and Blood [place]. National Institutes of Health. 2001: [facility] Publication No. . LDL Cholesterol Date Value Ref Range Status 03/22/2022 151 (H) <100 mg/dL Final Comment: <100 mg/dL, Optimal 100-129 mg/dL, Near optimal/above optimal 130-159 mg/dL, Borderline high 160-189 mg/dL, High >189 mg/dL, Very high Secondary prevention optimal LDL Cholesterol levels are recommended to be < 70 mg/dL Triglyceride Date Value Ref Range Status 07/09/2023 162 (H) <150 mg/dL Final Comment: <150 mg/dL, Normal 150-199 mg/dL, Borderline high 200-499 mg/dL, High >499 mg/dL, Very high Reference: 1. National Cholesterol Education Program ATP III Guideline At-A-Glance Quick Desk Reference: National Heart, Lung, and Blood [place]. National Institutes of Health. 2001: [facility] Publication No. 3305. Latest Ref Rng 07/09/2023 LDL Cholesterol, Direct <100 mg/dL 182 (H) -- This patient is not on target on statin therapy. -- Managed by PCP. Pravastatin recently increased from 40 mg to 80 mg. 4. Nephropathy screening: Annual measurement of urine albumin excretion is recommended in patients with diabetes. Albumin/Creat Ratio (mg/g) Date Value 04/17/2023 44 (H) Protein, Urine (no units) Date Value 07/09/2023 Negative 06/11/2021 2+ (A) Creatinine, Ur Random (UCRR) (mg/dL) Date Value 04/17/2023 73.8 -- This patient has microalbuminuria and is on ADLEN-I or ARB and SGLT2i. 5. Ophthalmology: Annual dilated eye exams are recommended for patients with type 1 and type 2 diabetes. -- This patient is up to date with their annual eye exam and has no history of retinopathy. Any part of this document that has been added/copied & pasted from other documents has been reviewed for accuracy and updated as appropriate at the time of the patient encounter Kylee Dalal APRN.POLYSOMNOGRAPHY TECHNOLOGIST (Signed electronically to expedite mailing) documented in this encounter [facility] 08-08-2023 Note [facility] 08-08-2023 History of Present illness Narrative [facility] Department of Hematologic Oncology and Blood Disorders PATIENT NAME: Derrell Hsu [facility] NO: [id number] Date of service: 07/07/2023 Reason for visit: Follow up of CML on clinical trial Diagnosis: 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 (imatinib, dasatinib, nilotinib, bosutinib and ponatinib) Current Treatment - On a clinical trial - ACTG 1920 [id number] Title: A phase 1b study of the pharmacokinetics, safety and efficacy of orally administered [id number] in subjects with refractory chronic myeloid leukemia (CML). Day 1 was 06/19/2020. Cycle 5 scheduled to start on 10/13/2020 was delayed to elevated lipase levels. Today is day 28 of cycle 36. He is being dosed at 30 mg every other day. Molecular monitoring with qRT-PCT for p210 bcr-abl transcripts since starting the clinical trial in June of 2020 - 05/29/2020 (prior to starting clinical trial) - >50%IS 09/15/2020 - 5.02% 12/22/2020 - 3.179% 06/15/2021 - 0.9714% (2 MR) 02/18/2022 - 0.5562% 05/13/2022 - 0.6007% (2.2 log reduction) 08/05/2022 - 0.5883% (2.23 log reduction) 10/30/2022 - 1.1278% (1.95 log reduction) 01/22/2023 - 0.7883% (2.1 log reduction) Impression: This is a 52 year old male with chronic phase CML who is here for follow up on clinical trial Recommendations: 1) Chronic Myeloid Leukemia (CML) in chronic phase with failure or intolerance to multiple TKI's (dasatinib, imatinib, nilotinib, bosutinib and ponatinib) - He started the CML clinical trial - ACT 1920 [id number] Title: A phase 1b study of the pharmacokinetics, safety and efficacy of orally administered [id number] in subjects with refractory chronic myeloid 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 He has completed 27 cycles. He achieved early 3 month molecular response and five serial bone marrow biopsies done as part of the clinical trial protocol on 09/15/2020, 12/22/2020, 06/15/2021, 11/29/2021, 05/16/2022 and 10/12/2022 and he remains in [facility]. He has however not met the criteria for MMR. Follow up as per clinical trial protocol. 2) Hypertension - On amlodipine at 10 mg once daily and follow up with his PCP. 3) Severe obstructive sleep apnea - Confirmed on polysomnography test done on 12/21/2017. He has been recommended CPAP but does not use it. 5) Psoriasiform dermatitis / pruritic papular erythematous rash on trunk - Has tried cetrizine and kenalog in the past. Can use the same. Unclear whether this I drug related as he has had a long history of intermittent outbreaks of rash. 6) Diabetes mellitus - On long and short acting insulin. He needs annual screening for diabetic neuropathy, retinopathy and renal disease. 7) History of intermittent mild hyponatremia - Likely study-drug related based on the temporality of onset coinciding with initiation of the study drug. 8) History of elevated lipase and history of pancreatitis while on ponatinib - Close monitoring. Most recent lipase levels from 01/22/2023 normal. 9) Hypercholesterolemia and hypertriglyceridemia - He has underlying risk factors for CAD and CVA. His cholesterol and triglycerides remains high. Continued monitoring. Clinical course - - He was diagnosed with CML in December of 2011 - A bone marrow biopsy 01/02/2012 showed a hypercellular bone marrow (90%) with markedly expanded myeloid compartment, relative erythroid hypoplasia and decreased megakaryocytes, presence of storage iron and no significant increase in reticulin fibrosis. CBC with differential from the same [place] [address] [address], monocytosis (5700), 6700 lymphocytes, 500 basophils and thrombocytopenia with platelets at 218288. Metaphase cytogenetics showed presence of t(9;22) in all 20 metaphases. - Started on imatinib at 400 mg once daily on 02/12/2012. Rising bcr-abl transcript levels reported at 2.65% IS on 11/03/2012 (after 8 months of imatinib therapy). A bone marrow evaluation on 11/19/2012 (limited analysis as no core biopsy specimen was obtainable) showed a cellular bone marrow with trilineage hematopoiesis, 1% blasts, adequate megakaryocytes, presence of storage iron but no increase in ring sideroblasts. - Because of failure to achieve MMR and with rising transcript levels, he was switched to nilotinib 400 mg twice daily on 12/28/2012. - Development of rash on his face and arms and unspecified intolerance, he was switched to dasatinib 100 mg daily on 02/22/2013 after being on nilotinib for approximately 2 months. - On dasatinib therapy, bcr-abl transcript level dropped to 0.26 %IS on 11/29/2013 from 1.89 IS% on 02/26/2013 but thereafter the transcript levels started rising steadily reaching 1.61 IS% as of 11/11/2014. He never achieved a MMR on dasatinib despite being on it for 1 year and nine months. He was referred here for further evaluation in November of 2014. Kinase domain mutation analysis identified no mutations. - Rechallenged with nilotinib at 300 mg twice daily in Feb 2015. Serial measurements of p210 bcr-abl transcript levels were as follows on nilotinib - IS% was 1.34 in May of 2015, 2.16 in November of 2015 and 72.6 in February of 2016, consistent with failure of nilotinib. 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 - Initiated on bosutinib on Mar 2016 - initial response with drop in bcr-ab transcript levels to 3 in Jun 2016 but by Mar 2017 went up to 15.78. - He was enrolled on a clinical trial, ARIA [id number] A Randomized, Open-label, Phase 2 Trial of Ponatinib in Patients with Resistant Chronic Phase Chronic Myeloid Leukemia to Characterize the Efficacy and Safety of a Range of Doses on 05/21/2017 (day 1 of cycle 1). He was randomized to 45 mg daily. He has had three episodes of pancreatitis that required dose reduction or interruption. The last dose of the drug was 07/15/2019. He completed a total of 28 cycles on the clinical trial. Treatment course, dose modifications, response ( p210 bcr-abl transcripts levels by qRT-PCR), and complications while on ponatinib trial- 1) 04/24/2017 - 75.76% IS (prior to starting ponatinib at 45 mg on 05/21/2017) 2) 05/02/2017 - 70% IS 3) 08/12/2017 - 3.4% IS (~3 months of ponatinib at 45 mg) 4) 11/04/2017 - 1.2% IS ( ~ 6 months on ponatinib, dose reduced to 30 mg one daily from 45 mg on 09/20/2017 due to pancreatitis) 5) 01/27/2018 - 1.1% IS (on 30 mg of ponatinib since 09/20/2017) 6) 04/21/2018 - 0.85% IS (30 mg ponatinib) 7) 05/08/2018 - ponatinib dose reduced to 15 mg once daily per protocol 8) A bone marrow biopsy from 05/03/2019 showed normocellular marrow (50%) with trilineage hematopoiesis, decreased iron stores. Cytogenetics showed 46,XY,t(9;22)(q34;q11.2)[3]/46,XY[ 17], consistent with failure to achieve CCyR. BCR-ABL transcripts have been gradually increasing since decreased dose. Last level drawn on 03/2019 noted 9.5% IS. 9) 06/18/2019 - ponatinib dose increased to 30 mg daily 10) Hospitalized from 06/23/2019 to 06/25/2019 with pancreatitis (patient reports lipase elevated at 960). Ponatinib held on 06/23/2019 11) ED visit on 06/29/2019 for chest pain - CT chest negative for PE. Stress test was negative. 12) Resumed ponatinib at 30 mg on 07/09/2019 (held from 06/23/2019 to 07/08/2019) 13) He was hospitalized from 07/15/2019 to 07/19/2019 for pancreatitis - lipase elevated at 1966. Ponatinib was discontinued on 07/15/2019. - He underwent a bone marrow biopsy on 08/16/2019 that showed a normocellular marrow with trilineage hematopoiesis, 1% blasts and in complete cytogenetic remission (CCyR). 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 - A bone marrow transplant was deferred as long as it may be possible to maintain him in CCyR. He has a haploidentical brother and a well-matched unrelated donor. - He was started on pegylated interferon amber-2a on 12/14/2019 and discontinued on 01/27/2020 due to patient's poor compliance with monitoring. - His CML was being managed with hydroxyurea while waiting for enrollment in a clinical trial. - He was presented and consented for the clinical trial - [facility]G 1920 20-998 Title: A phase 1b study of the pharmacokinetics, safety and efficacy of orally administered [id number] in subjects with refractory chronic myeloid leukemia (CML). He underwent a screening marrow on 05/03/2020 that showed CML in chronic phase (0% blasts) and identification of t(9;22) in all 20 metaphases. As the T315I was not checked as part of initial screening, his clinical trial date was deferred to 06/19/2020 to allow time for re-screening. BCR-ABL kinase domain mutation analysis from 05/29/2020 identified no mutations including T315I. Quantitative RT-PCT for p210 bcr-abl from 05/29/2021 showed levels at >50%IS. - He started the clinical trial on 06/19/2020.He underwent a follow up bone marrow biopsy on 09/15/2020 that showed complete cytogenetic remission. - He stopped taking the study drug on 10/03/2020 as he had misplaced it. Cycle 5 scheduled to start on 10/15/2020 was delayed due to elevated lipase. He was recently exposed to poison radha in September and broke out in rash around his left eye, face, trunk and chest for which he completed a short course of dexamethasone. - Five serial bone marrow biopsies done as part of the clinical trial protocol (09/15/2020, 12/22/2020, 06/15/2021, 11/29/2021 and 05/16/2022) shows him to be in CCyR. Review of system including interval history: Interval History - Recently hurt his right shoulder following an accidental fall and will be having MRI of the right shoulder. He gets relief with taking NSAIDs. Constitutional: No fever, anorexia or malaise. + chronic stable fatigue (rates it as 3-4/10 with 10 being the worst) Eyes: No change in vision, blurriness, diplopia, redness, or irritation. ENT: No mouth sores or bleeding gums; no hoarseness of voice. No epistaxis or other nasal problems. No changes in hearing, vertigo, or tinnitus. Respiratory: No coughing, wheezing, dyspnea at rest, exertional dyspnea, or hemoptysis. Cardiovascular: No anginal symptoms, palpitations, orthopnea, PND, syncopal events or presyncopal events. Gastrointestinal: No nausea, no vomiting, heartburn or acid reflux, constipation or abdominal cramping. Bowel habit is unchanged; and no melena or hematochezia. Genitourinary: No urgency, frequency, dysuria, or hematuria. Musculoskeletal: + stable chronic joint pains/arthritis. Unrestricted ambulation. Skin: no rash Neurological: No syncope, near-syncope, or seizures; no headaches or alteration in sensorium or motor strength. Psychiatric: Memory, short term & retirement intact; no disturbance in sleep pattern and denies symptoms of depression. Endocrine: Negative for temperature intolerance, unusual sweating, or symptoms of glucose intolerance. Hematologic/Lymphatic: Negative for prolonged bleeding, easy bruising, and swollen nodes. No lower extremity edema. Allergic/Immunologic: No itching, or jaundice. Past medical and surgical history: - Chronic Phase CML - Hypertension - ADHD - Gastritis - Chronic diarrhea preceding his dx of CML and prior to starting imatinib - Morbid obesity - Psoriasiform dermatitis - Cholecystectomy - Tonsillectomy - Back Surgery - Right knee arthroscopy - chronic pruritis rash for > 10 years Current medication: Reviewed from [facility] and integrated in assessment and plan. Social History: He is . 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 He does not smoke cigarettes and has not used any illicit drugs. He drinks alcoholic beverages occasionally. Family History: Father has CAD and had cardiac surgery, he also has DM. Still living Mother has DM. He has one brother is doing well. He has 2 children, both are doing well. He denies any prior exposure to toxic chemicals, radiation therapy, chemotherapy. Physical Examination: Vitals: BP 156/73 Pulse 71 Temp 36.4 C (97.6 F) (Oral) Resp 18 Wt 124.9 kg (275 lb 5.7 oz) SpO2 94% BMI 39.51 kg/m ECOG - 1 Gen: Awake, alert, oriented x 3, NAD, accompanied by his Skin: Scattered erythematous areas with papular rash on trunk (front, back and sides) - continues to improve Eyes: sclera anicteric Lungs: Normal chest expansion, clear breath sounds Heart: Normal rate and rhythm, no murmurs Abdomen: protuberant, soft, +BS- non-tender - spleen not appreciated but difficult due to body habitus Extremities: no edema Labs: CBC with differential reviewed from [facility] from 01/22/2023 and integrated in assessment and plan. William Howell MD PhD MPH Associate Staff Hematologic Oncology and Blood Disorders Pager [phone] Date of service: 07/07/2023 documented in this encounter [facility] 07-09-2023 Note [facility] 07-09-2023 Nurse Note Additional intake questions: Has the patient had fever, nausea, vomiting, diarrhea, constipation, fatigue for > 1 week? Yes, fatigue Does the patient have a decreased appetite? No Does patient want to see a Car Tracer? No (yes to any of above refer patient to schedulers for dietitian appointment) ) Does patient have any new or increased numbness or tingling of extremities? No Is patient interested in fertility information? No Does patient need any prescription refills? No Does patient have an advanced directive in place? No, documented in this encounter [facility] 06-17-2023 Note [facility] 06-13-2023 [facility] 06-13-2023 [facility] 05-20-2023 Note HNO ID: [id number] Author: Emma Tuttle RN Service: ? Author Type: Registered Nurse Type: Progress Notes Filed: 05/22/2023 10:33 AM Note Text: [facility] 05-20-2023 [facility] 05-20-2023 History of Present illness Narrative Imagin documented in this encounter [facility] 05-20-2023 History of Present illness Narrative [facility] Department of Hematologic Oncology and Blood Disorders PATIENT NAME: Derrell Hsu [facility] NO: [id number] Date of service: 04/16/2023 Reason for visit: Follow up of CML on clinical trial Diagnosis: 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 (imatinib, dasatinib, nilotinib, bosutinib and ponatinib) Current Treatment - On a clinical trial - ACTG 1920 20-998 Title: A phase 1b study of the pharmacokinetics, safety and efficacy of orally administered [id number] in subjects with refractory chronic myeloid leukemia (CML). Day 1 was 06/19/2020. Cycle 5 scheduled to start on 10/13/2020 was delayed to elevated lipase levels. Today is day 28 of cycle 36. He is being dosed at 30 mg every other day. Molecular monitoring with qRT-PCT for p210 bcr-abl transcripts since starting the clinical trial in June of 2020 - 05/29/2020 (prior to starting clinical trial) - >50%IS 09/15/2020 - 5.02% 12/22/2020 - 3.179% 06/15/2021 - 0.9714% (2 MR) 02/18/2022 - 0.5562% 05/13/2022 - 0.6007% (2.2 log reduction) 08/05/2022 - 0.5883% (2.23 log reduction) 10/30/2022 - 1.1278% (1.95 log reduction) 01/22/2023 - 0.7883% (2.1 log reduction) Impression: This is a 52 year old male with chronic phase CML who is here for follow up on clinical trial Recommendations: 1) Chronic Myeloid Leukemia (CML) in chronic phase with failure or intolerance to multiple TKI's (dasatinib, imatinib, nilotinib, bosutinib and ponatinib) - He started the CML clinical trial - [facility] 1920 20-998 Title: A phase 1b study of the pharmacokinetics, safety and efficacy of orally administered [id number] in subjects with refractory chronic myeloid 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 He has completed 27 cycles. He achieved early 3 month molecular response and five serial bone marrow biopsies done as part of the clinical trial protocol on 09/15/2020, 12/22/2020, 06/15/2021, 11/29/2021, 05/16/2022 and 10/12/2022 and he remains in CCyR. He has however not met the criteria for MMR. Follow up as per clinical trial protocol. 2) Hypertension - On amlodipine at 10 mg once daily and follow up with his PCP. 3) Severe obstructive sleep apnea - Confirmed on polysomnography test done on 12/21/2017. He has been recommended CPAP but does not use it. 5) Psoriasiform dermatitis / pruritic papular erythematous rash on trunk - Has tried cetrizine and kenalog in the past. Can use the same. Unclear whether this I drug related as he has had a long history of intermittent outbreaks of rash. 6) Diabetes mellitus - On long and short acting insulin. He needs annual screening for diabetic neuropathy, retinopathy and renal disease. 7) History of intermittent mild hyponatremia - Likely study-drug related based on the temporality of onset coinciding with initiation of the study drug. 8) History of elevated lipase and history of pancreatitis while on ponatinib - Close monitoring. Most recent lipase levels from 01/22/2023 normal. 9) Hypercholesterolemia and hypertriglyceridemia - He has underlying risk factors for CAD and CVA. His cholesterol and triglycerides remains high. Continued monitoring. Clinical course - - He was diagnosed with CML in December of 2011 - A bone marrow biopsy 01/02/2012 showed a hypercellular bone marrow (90%) with markedly expanded myeloid compartment, relative erythroid hypoplasia and decreased megakaryocytes, presence of storage iron and no significant increase in reticulin fibrosis. CBC with differential from the same [place] [address], [place] [address], monocytosis (5700), 6700 lymphocytes, 500 basophils and thrombocytopenia with platelets at 628530. Metaphase cytogenetics showed presence of t(9;22) in all 20 metaphases. - Started on imatinib at 400 mg once daily on 02/12/2012. Rising bcr-abl transcript levels reported at 2.65% IS on 11/03/2012 (after 8 months of imatinib therapy). A bone marrow evaluation on 11/19/2012 (limited analysis as no core biopsy specimen was obtainable) showed a cellular bone marrow with trilineage hematopoiesis, 1% blasts, adequate megakaryocytes, presence of storage iron but no increase in ring sideroblasts. - Because of failure to achieve MMR and with rising transcript levels, he was switched to nilotinib 400 mg twice daily on 12/28/2012. - Development of rash on his face and arms and unspecified intolerance, he was switched to dasatinib 100 mg daily on 02/22/2013 after being on nilotinib for approximately 2 months. - On dasatinib therapy, bcr-abl transcript level dropped to 0.26 %IS on 11/29/2013 from 1.89 IS% on 02/26/2013 but thereafter the transcript levels started rising steadily reaching 1.61 IS% as of 11/11/2014. He never achieved a MMR on dasatinib despite being on it for 1 year and nine months. He was referred here for further evaluation in November of 2014. Kinase domain mutation analysis identified no mutations. - Rechallenged with nilotinib at 300 mg twice daily in Feb 2015. Serial measurements of p210 bcr-abl transcript levels were as follows on nilotinib - IS% was 1.34 in May of 2015, 2.16 in November of 2015 and 72.6 in February of 2016, consistent with failure of nilotinib. 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 - Initiated on bosutinib on Mar 2016 - initial response with drop in bcr-ab transcript levels to 3 in Jun 2016 but by Mar 2017 went up to 15.78. - He was enrolled on a clinical trial, ARIA 2915 15-875 A Randomized, Open-label, Phase 2 Trial of Ponatinib in Patients with Resistant Chronic Phase Chronic Myeloid Leukemia to Characterize the Efficacy and Safety of a Range of Doses on 05/21/2017 (day 1 of cycle 1). He was randomized to 45 mg daily. He has had three episodes of pancreatitis that required dose reduction or interruption. The last dose of the drug was 07/15/2019. He completed a total of 28 cycles on the clinical trial. Treatment course, dose modifications, response ( p210 bcr-abl transcripts levels by qRT-PCR), and complications while on ponatinib trial- 1) 04/24/2017 - 75.76% IS (prior to starting ponatinib at 45 mg on 05/21/2017) 2) 05/02/2017 - 70% IS 3) 08/12/2017 - 3.4% IS (~3 months of ponatinib at 45 mg) 4) 11/04/2017 - 1.2% IS ( ~ 6 months on ponatinib, dose reduced to 30 mg one daily from 45 mg on 09/20/2017 due to pancreatitis) 5) 01/27/2018 - 1.1% IS (on 30 mg of ponatinib since 09/20/2017) 6) 04/21/2018 - 0.85% IS (30 mg ponatinib) 7) 05/08/2018 - ponatinib dose reduced to 15 mg once daily per protocol 8) A bone marrow biopsy from 05/03/2019 showed normocellular marrow (50%) with trilineage hematopoiesis, decreased iron stores. Cytogenetics showed 46,XY,t(9;22)(q34;q11.2)[3]/46,XY[ 17], consistent with failure to achieve CCyR. BCR-ABL transcripts have been gradually increasing since decreased dose. Last level drawn on 03/2019 noted 9.5% IS. 9) 06/18/2019 - ponatinib dose increased to 30 mg daily 10) Hospitalized from 06/23/2019 to 06/25/2019 with pancreatitis (patient reports lipase elevated at 960). Ponatinib held on 06/23/2019 11) ED visit on 06/29/2019 for chest pain - CT chest negative for PE. Stress test was negative. 12) Resumed ponatinib at 30 mg on 07/09/2019 (held from 06/23/2019 to 07/08/2019) 13) He was hospitalized from 07/15/2019 to 07/19/2019 for pancreatitis - lipase elevated at 1966. Ponatinib was discontinued on 07/15/2019. - He underwent a bone marrow biopsy on 08/16/2019 that showed a normocellular marrow with trilineage hematopoiesis, 1% blasts and in complete cytogenetic remission (CCyR). 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 - A bone marrow transplant was deferred as long as it may be possible to maintain him in CCyR. He has a haploidentical brother and a well-matched unrelated donor. - He was started on pegylated interferon amber-2a on 12/14/2019 and discontinued on 01/27/2020 due to patient's poor compliance with monitoring. - His CML was being managed with hydroxyurea while waiting for enrollment in a clinical trial. - He was presented and consented for the clinical trial - [facility] 1920 20-998 Title: A phase 1b study of the pharmacokinetics, safety and efficacy of orally administered [id number] in subjects with refractory chronic myeloid leukemia (CML). He underwent a screening marrow on 05/03/2020 that showed CML in chronic phase (0% blasts) and identification of t(9;22) in all 20 metaphases. As the T315I was not checked as part of initial screening, his clinical trial date was deferred to 06/19/2020 to allow time for re-screening. BCR-ABL kinase domain mutation analysis from 05/29/2020 identified no mutations including T315I. Quantitative RT-PCT for p210 bcr-abl from 05/29/2021 showed levels at >50%IS. - He started the clinical trial on 06/19/2020.He underwent a follow up bone marrow biopsy on 09/15/2020 that showed complete cytogenetic remission. - He stopped taking the study drug on 10/03/2020 as he had misplaced it. Cycle 5 scheduled to start on 10/15/2020 was delayed due to elevated lipase. He was recently exposed to poison radha in September and broke out in rash around his left eye, face, trunk and chest for which he completed a short course of dexamethasone. - Five serial bone marrow biopsies done as part of the clinical trial protocol (09/15/2020, 12/22/2020, 06/15/2021, 11/29/2021 and 05/16/2022) shows him to be in CCyR. Review of system including interval history: Interval History - Recently hurt his right shoulder following an accidental fall and will be having MRI of the right shoulder. He gets relief with taking NSAIDs. Constitutional: No fever, anorexia or malaise. + chronic stable fatigue (rates it as 3-4/10 with 10 being the worst) Eyes: No change in vision, blurriness, diplopia, redness, or irritation. ENT: No mouth sores or bleeding gums; no hoarseness of voice. No epistaxis or other nasal problems. No changes in hearing, vertigo, or tinnitus. Respiratory: No coughing, wheezing, dyspnea at rest, exertional dyspnea, or hemoptysis. Cardiovascular: No anginal symptoms, palpitations, orthopnea, PND, syncopal events or presyncopal events. Gastrointestinal: No nausea, no vomiting, heartburn or acid reflux, constipation or abdominal cramping. Bowel habit is unchanged; and no melena or hematochezia. Genitourinary: No urgency, frequency, dysuria, or hematuria. Musculoskeletal: + stable chronic joint pains/arthritis. Unrestricted ambulation. Skin: no rash Neurological: No syncope, near-syncope, or seizures; no headaches or alteration in sensorium or motor strength. Psychiatric: Memory, short term & retirement intact; no disturbance in sleep pattern and denies symptoms of depression. Endocrine: Negative for temperature intolerance, unusual sweating, or symptoms of glucose intolerance. Hematologic/Lymphatic: Negative for prolonged bleeding, easy bruising, and swollen nodes. No lower extremity edema. Allergic/Immunologic: No itching, or jaundice. Past medical and surgical history: - Chronic Phase CML - Hypertension - ADHD - Gastritis - Chronic diarrhea preceding his dx of CML and prior to starting imatinib - Morbid obesity - Psoriasiform dermatitis - Cholecystectomy - Tonsillectomy - Back Surgery - Right knee arthroscopy - chronic pruritis rash for > 10 years Current medication: Reviewed from [facility] and integrated in assessment and plan. Social History: He is . 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 He does not smoke cigarettes and has not used any illicit drugs. He drinks alcoholic beverages occasionally. Family History: Father has CAD and had cardiac surgery, he also has DM. Still living Mother has DM. He has one brother is doing well. He has 2 children, both are doing well. He denies any prior exposure to toxic chemicals, radiation therapy, chemotherapy. Physical Examination: Vitals: BP 161/89 Pulse 74 Temp 36.6 C (97.8 F) (Oral) Resp 14 Ht 177.8 cm (5' 10 ) Wt 126.1 kg (278 lb) SpO2 99% BMI 39.89 kg/m ECOG - 1 Gen: Awake, alert, oriented x 3, NAD, accompanied by his Skin: Scattered erythematous areas with papular rash on trunk (front, back and sides) - continues to improve Eyes: sclera anicteric Lungs: Normal chest expansion, clear breath sounds Heart: Normal rate and rhythm, no murmurs Abdomen: protuberant, soft, +BS- non-tender - spleen not appreciated but difficult due to body habitus Extremities: no edema Labs: CBC with differential reviewed from [facility] from 01/22/2023 and integrated in assessment and plan. 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 Chart Review for survival performed Raheem Santos, Research Coordinator . Patient was last seen in clinic on 04/18/2023 by Ezra Kang MD Current treatment is Trial ACTG 1920. Next survival f/u due 06/12/2023 Patient aware that next follow up call will occur on 06/12/2023. Patient knows to call in the interim for any questions or concerns. Raheem Santos Research Coordinator documented in this encounter [facility] 04-18-2023 Note [facility] 04-17-2023 Note [facility] 04-17-2023 Note HNO ID: [id number] Author: Germain Hubbard MA Service: ? Author Type: Machine Operator Packaging Type: Procedures Filed: 04/17/2023 4:23 PM Note Text: [facility] 04-16-2023 Note [facility] 04-16-2023 History of Present illness Narrative Summary: [facility] 1920 / -8 cycle 36 day 28 ACTG 1919 A phase 1b study of the pharmacokinetics, safety and efficacy of orally administered [id number] in subjects with refractory chronic myeloid leukemia (CML). Patient is here for screening for ACTG 1920 / IRB . 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 06/19/2020 Patient met all inclusion and exclusion criteria and deemed eligible to participate on the study by the sponsor 04/16/2023 Cycle 36 day 28 Subject #: [id number] Patient met with research team, pleasant and engaged in conversation. Patient denies any side effects to report. Dr. Howell discussed with the patient his disease response. discussed patient has a cytogenetic response and not a major molecular response. discussed plan of care to continue on clinical trial. Patient verbalized understanding and is in agreement. reviewed all labs and AE's. ECHO: done 04/16/2023 not resulted yet. BMBx: scheduled for 04/18/2023 EKG: QTcF 408, 408, 406 ms PE: ECO Ankle-brachial index: 1223 Left brachial 124/79 Left ankle 152/80 VS: 04/16/2023 Weight 126.1 kg (278 lb) Height 177.8 cm (5' 10 ) BSA 2.5 BMI 39.89 Temp 36.6 ?C (97.8 ?F) Pulse 74 Resp 14 BP 161/89 SpO2 99 % PAST MEDICAL HISTORY Diagnosis Date Status CML (chronic myelocytic leukemia) (HCC) 12/2011 Active chronic phase not controlled Hypertension 09/14/2015 Active controlled without medication ADHD >10 years Active controlled without medication Gastritis Not active Chronic diarrhea Not active Morbid obesity >10 years Active back pain >10 years Active controlled with medication chronic pruritic rash >10 years Active intermittently controlled without medication moderate upper septal asymmetric left ventricular hypertrophy 05/05/2017 Present floaters in both eyes (eye exam 05/05) [id number] Active no medication or treatment Diabetes 12/2019 Active controlled with medication Rash 11/2019 Active uncontrolled,medication to start 05/29/2020 PAST SURGICAL HISTORY Procedure Laterality Date BACK SURGERY HX Prior to 03/2012 L4 and L5 infusion SC ANESTH,KNEE JOINT; NOS right Prior to 03/2012Prior to 03/2012 right knee REMOVAL GALLBLADDER Prior to 03/2012 TONSILLECTOMY HX Prior to 03/2012 Social history: Patient has been for 26 years with adult children. Patient denies illegal drug use and drinks alcohol very rarely. Patient is a non-smoker. Transfusion History: None History of Prior Medical Treatments for CML: Gleevec 02/12/2012 - 11/2012 Nilotinib 12/2012 - 02/2013 Dasatinib 02/2013 - 12/2014 Nilotinib 12/2014 -- 03/2016 Bosutinib 03/2016 - 05/02/2017 [facility] 2915 15-875 trial of Ponatinib 05/21/2017 - 07/15/2019 pegylated interferon amber-2a on 12/14/2019 - 01/27/2020 BCR-ABL mutation history: bcr-abl transcript levels reported at 2.65% IS on 11/03/2012 bcr-abl transcript levels reported 1.89% IS on 02/26/2013 bcr-abl transcript levels reported 0.26% IS on 11/29/2013 bcr-abl transcript levels reported 1.34% IS in 05/2015 2.16 in November of 2015 72.6 in February of 2016 bcr-ab transcript levels to 3 in Jun went up to 15.78. 04/24/2017 - 75.76% IS (prior to starting ponatinib at 45 mg on 05/21/2017) 05/02/2017 - 70% IS 08/12/2017 - 3.4% IS (~3 months of ponatinib at 45 mg) 11/04/2017 - 1.2% IS 01/27/2018 - 1.1% IS 04/21/2018 - 0.85% IS (30 mg ponatinib) BCR-ABL transcripts have been gradually increasing since decreased dose of Ponatinib. Last level drawn on 03/2019 noted 9.5% IS. 10/30/2022 BCR/ABL1 %IS 1.1278 BCR/ABL1 P210 MR 1.95 01/22/2023 BCR/ABL1 P210 .78 04/16/2023 results pending Medications: NKA Medication Dose Start Date Stop Date Comments Ibuprofen 800 mg once daily as needed per patient 10/2015 For general body aches Insulin Lantus 50 units daily Per patient 05/2022 For diabetes Hydrea 500 mg 2 capsules by mouth once daily 12/2019 ~ 04/17/2020 For leukocytosis Hydrea 500 mg capsules orally twice a day 05/01/2020 05/11/2020 increased to 05/11/2020 For leukocytosis Hydrea (2) 500 mg capsules orally 2x/day 05/11/2020 05/17/2020 For leukocytosis Hydrea (2) 500 mg capsules orally 3x/day 05/17/2020 05/22/2020 For leukocytosis Hydrea Tapering dose: (2) 500 mg capsules orally 2x/day for 3 days. Then (2) 500 mg capsules orally once a day for 2 days then stop. 05/22/2020 05/26/2020 For leukocytosis Kenalog cream Apply 2x/day to affected areas. 05/29/2020 For rash Hydrea (2) 500 mg capsules orally 2x/day 06/12/2020 06/16/2020 For leukocytosis Hydrea (2) 500 mg capsules orally 3x/day 06/16/2020 06/17/2020 For leukocytosis Lovaza (2) 1gm capsules orally 2x/day 06/22/2020 on hold restarted 09/03/2021 Hypertriglyceridemia Advil 400 mg orally every 6 hours as needed 07/10/2020 For headache Decadron 4 mg orally 10/04/2020 10/06/2020 For poison radha Lidex ointment 0.05% Apply twice daily for 2 weeks, then once daily for 2 weeks For rash. Do not apply to face, armpits or groin Colace 100 mg orally once a day as needed 06/07/2021 Constipation Norvasc 10 mg orally once a day 05/13/2022 03/20/2023 Blood pressure Norvasc 5 mg orally once a day 03/20/2023 Blood pressure Lispro (insulin) 10 units sq at breakfast and lunch, 14 units sq at dinner 05/2022 Diabetes Avalon 5/325 mg 1 tab PO x 1 05/16/2022 05/16/2022 Hand pain Zofran 4 mg 4 mg IV x 1 05/16/2022 05/16/2022 Nausea LR 1L 1L IV over one hr x1 05/16/2022 05/16/2022 Dizziness Sliding scale insulin with Humalog If Blood Glucose (mg/dL) is <150 Give 0 units 151-200 Give 2 unit 201-250 Give 4 units 251-300 Give 6 units 301-350 Give 8 units 351-400 Give 10 units >400 Give 12 units and notify provider 07/15/2022 DM Toxicities: CTCAE V. 5 SCREENING all predate therapy, are chronic conditions and will not be actively followed unless they worsen during the clinical trial. Fasting labs Day -28 06/05/2020 Leukocytosis Grade 3 UNRELATED Start date: 05/01/2020. Resolved: ongoing. Drugs used to treat: yes. Outcome: Still present. Hypertension:Stage Prehypertension Grade 1 UNRELATED Start date:05/01/2020. Resolved: ongoing. Drugs used to treat: none. Outcome: Still present. Hyperglycemia Grade 1 UNRELATED Start date: 05/01/2020. Resolved: ongoing. Drugs used to treat: none. Outcome: Still present Hypertriglyceridemia Grade 1 UNRELATED Start date: 05/22/2020. Resolved: ongoing. Drugs used to treat: none. Outcome: Still present. Rash on trunk of body Grade 1 UNRELATED Start date: 05/29/2020. Resolved: ongoing. Drugs used to treat: yes. Outcome: Still present. Fasting labs Day -7 06/12/2020 Aspartate aminotransferase increased Grade 1 UNRELATED Start date: 06/12/2020. Resolved: ongoing. Drugs used to treat: none. Outcome: Still present. Hyperglycemia Grade 2 UNRELATED Start date: 06/05/2020. Resolved: ongoing. Drugs used to treat:yes. Outcome: Still present. Hypertriglyceridemia Grade 2 UNRELATED Start date: 06/12/2020. Resolved: ongoing. Drugs used to treat: none. Outcome: Still present. Alkaline phosphatase Grade 1 Unrelated (prior to drug)Start date: 06/19/2020. Resolved: ongoing. Drugs used to treat:no Outcome:present intermittently. Hyponatremia Grade 1 Unrelated (prior to drug) Start date 06/19/2020 Resolved:ongoing.Drugs used to treat: no. Outcome: present intermittently Fasting labs 04/16/2023: CTCAE v.5 Hypertension Grade 1 Unrelated Start date 08/14/2020 Resolved:ongoing. Drugs used to treat:no. Outcome: still present. Hypertension Grade 2 Unrelated Start date 06/11/2021 Resolved:ongoing. Drugs used to treat:yes 05/13/2022 Outcome: monitor. Cholesterol high Grade 1 Unrelated Start date: 10/13/2020esolved: ongoing. Drugs used to treat: none. Outcome: still present. Constipation Grade 1 Unrelated Start date:06/07/2021.Resolved:ongoing. Drugs used to treat: yes. Outcome: present intermittently. Fatigue Grade 1 Unrelated Start date:06/07/2021.Resolved:ongoing. Drugs used to treat: no. Outcome: present intermittently. Right knee pain Grade 1 Unrelated Start date:~01/2022 Resolved: ongoing Drugs used to treat: no. Outcome: present Nausea Grade 1. UNRELATED. Start date:~12/04/2022. Resolve date: ongoing. Drugs to treat: no. Outcome: present intermittently Dizziness Grade 1. UNRELATED. Start date: 05/16/2022. Resolve date: 05/16/2022. Drugs to treat: LR. Outcome: resolved Right wrist ganglion cyst Grade 1. UNRELATED. Start date: 04/2022. Resolve date: ongoing. Drugs to treat: norco. Outcome: still present, improving Right shoulder pain Grade 1 Unrelated Start date:~week of 12/07/2022 Resolved: ongoing Drugs used to treat: ibuprofen Outcome: present Hyponatremia Grade 1 Unrelated Start date 01/22/2023 Resolved:ongoing. Drugs used to treat:no. Outcome: still present intermittently. Resolved AE's: Hypertriglyceridemia Grade 3 Unrelated(prior to drug) Start date: 06/19/2020. Resolved: 06/26/2020 Drugs used to treat: none. Outcome resolved to baseline day -28 Amylase Grade 1 Possibly related Start date 06/26/20 Resolved:07/03/2020. Drugs used to treat: no. Outcome: resolved. Lipase Grade 3 Possibly related Start date 06/26/20 Resolved:07/03/2020.Drugs used to treat: no. Outcome: resolved. Lipase Grade 1 Possibly related Start date:07/13/2020 Resolved: 07/17/2020 Drugs used to treat: no. Outcome:resolved. Constipation Grade 1 Unrelated Startdate:06/22/20.Resolved:06/23/19. Drugs used to treat: no. Outcome: resolved. Hypoalbuminemia Grade 1 Unrelated Startdate:06/22/20.Resolved: 1Drugs used to treat: no. Outcome: resolved. Platelet count decreased Grade 1 Possibly related Startdate:07/13/20.Resolved:. Drugs used to treat: no. Outcome: resolved. Headache Grade 1 Possibly related Startdate:07/10/2020.Resolved:08/15/19. Drugs used to treat:yes. Outcome: resolved. Lipase Grade 3 Possibly related Start date 08/03/2020 Resolved:08/14/2020.Drugs used to treat: no. Outcome: resolved. Amylase Grade 1 Possibly related Start date 08/03/2020 Resolved:08/14/2020.Drugs used to treat: no. Outcome: resolved. Heart palpitation Grade 1 Unrelated Start date: 08/25/2020. Resolved:08/27/2020. Drugs used to treat:no. Outcome: resolved. Rash Grade 1 Unrelated Start date: 10/04/2020 Resolved:10/06/2020. Drugs used to treat: yes. Outcome:resolved Hyperglycemia Grade 3 Unrelated Start date: 10/13/2020 Resolved: 10/20/2020 Drugs used to treat:yes. Outcome:resolved to Grade 2. Hyponatremia Grade 1 Unrelated (prior to drug) Start date 06/19/2020 Resolved:10/20/2020.Drugs used to treat: no. Outcome: Resolved. Alkaline phosphatase Grade 1 Unrelated (prior to drug)Start date: 06/19/2020. Resolved: 10/27/2020. Drugs used to treat:no Outcome:Resolved. Alanine aminotransferase increased Grade 1 Unrelated Start date: 10/13/2020esolved: 10/20/2020. Drugs used to treat: none. Outcome: Resolved. Lipase increased Grade 1 Possibly related Start date: 10/13/2020esolved: 10/27/2020. Drugs used to treat: none. Outcome: Resolved to normal. Lipase increased Grade 2 Possibly related Start date: 10/20/2020esolved:10/27/2020. Drugs used to treat: none. Outcome: Resolved to normal. Hypertriglyceridemia Grade 3 Possibly related Start date: 10/13/2020. Resolved:10/20/2020 Drugs used to treat: none. Outcome:Resolved to Grade 2. Hypertriglyceridemia Grade 2 Possibly related Start date: 10/20/2020. Resolved:10/27/2020 Drugs used to treat: none. Outcome:Resolved to grade 1 screening. Hypoalbuminemia Grade 1 Unrelated Start date: 10/20/2020. Resolved:11/23/2020 Drugs used to treat: none. Outcome: resolved. Rash Possibly related bilateral lower abdomen, left upper chest, behind both knees, and right scapula area. Grade 1 Unrelated Start date: 11/07/2020 Resolved:02/07/2021. Drugs used to treat:yes. Outcome: resolved. Hypoalbuminemia Grade 1 Unrelated Start date:11/26/2021 Resolved: 02/18/2022 Drugs used to treat: no. Outcome: resolved Dizziness Grade 1. UNRELATED. Start date: 05/16/2022. Resolve date: 05/16/2022. Drugs to treat: LR. Outcome: resolved Lipase Grade 1 Possibly related Start date:09/03/2021 Resolved: 05/13/2022 Drugs used to treat: no. Outcome:resolved Nausea Grade 1. UNRELATED. Start date: 05/16/2022. Resolve date: 05/16/2022. Drugs to treat: zofran. Outcome: resolved Dizziness Grade 1. UNRELATED. Start date: 05/16/2022. Resolve date: 05/16/2022. Drugs to treat: LR. Outcome: resolved Patients last dose of study drug was 04/15/2023 Next dose due on 04/17/2023 Re-educated patient on how to complete the medication diary. Educated patient how to take the drug and how to transport and store drug going forward it can be stored at room temperature. Instructed patient that he will need to return drug and all bottles/unused medication at his next visit. Patient has 3 prong medal folder with drug information, contact information for research team, after hours number. Patient verbalized understanding of all information provided. Patient returned diary from previous visit completed. New diary given. Patient returned: 3 bottles, 2 empty and 1 bottle with 54 pills. The count is accurate. Patient was given drug: yes. 3 bottles of drug. 60 pills per bottle of 10 mg pills. To be dosed with 30 mg of HQP on 04/17/2023 then every other day. Lot# [id number] Patient aware next appointment 07/08/2023, will appear on [facility] when processed. Patient presented today to participate on the trial ACTG 1920 / IRB 20-998. Patient signed consent previously on 05/29/2020 with nurse present prior to having ANY procedures done. Copy given to the patient. Patient had labs drawn, and then met with the clinical team. Patient understands that he must call nurse or MD prior to taking any new medications as well as to stopping any medications. Patient also understands to call nurse/MD should she have any new medical issues arise and/or goes to the hospital for any reason. Patient is aware to monitor for fevers and to call and/or go to the nearest emergency room for temperatures of 100.4 or greater. 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 Patient understands that this participation is voluntary and that he may withdraw at any time during the trial. Emma Tuttle RN, OCN documented in this encounter [facility] 04-16-2023 Nurse Note Additional intake questions: Has the patient had fever, nausea, vomiting, diarrhea, constipation, fatigue for > 1 week? Yes, constipation (day of last BM 04/15/23) and fatigue Does the patient have a decreased appetite? No Does patient want to see a Car Tracer? No (yes to any of above refer patient to schedulers for dietitian appointment) ) Does patient have any new or increased numbness or tingling of extremities? Yes, feet Is patient interested in fertility information? No Does patient need any prescription refills? No Does patient have an advanced directive in place? No, Patient referred to [facility] documented in this encounter [facility] 03-21-2023 Miscellaneous Notes Last office visit 10/15/22 Future appt scheduled 04/17/23 Last A1C 01/22/23 documented in this encounter [facility] 02-03-2023 Miscellaneous Notes IRB# [id number]/[facility]# ARIA [id number]: Study Description A Randomized, Open-label, Phase 2 Trial of Ponatinib in Patients with Resistant Chronic Phase Chronic Myeloid Leukemia to Characterize the Efficacy and Safety of a Range of Doses Derrell Avitia JR [id number] Survival/Detention Follow Up Call Detention Follow Up performed every 12 weeks 14 days till 5 years, starting after the last dose of ponatinib or the investigator cash shortage/patient decision to discontinue treatment--whichever occurs later. Chart Review for survival performed Raheem Santos, Research Coordinator . Patient was last seen in clinic on 01/22/2023 by Emma Tuttle RN. Current treatment is Trial ACTG 1920. Next survival f/u due 04/28/2023. Patient aware that next follow up call will occur on 04/28/2023. Patient knows to call in the interim for any questions or concerns. Raheem Santos, Research Coordinator February 03, 2023 12:16 PM documented in this encounter [facility] 01-24-2023 Miscellaneous Notes Spoke to pt and scheduled biopsy for 04/18/23 per triage request. RADIOLOGIST REQUEST / APPROVAL FORM STAFF RADIOLOGIST: Domenico PROCEDURE TO BE DONE UNDER: CT PROCEDURE REQUESTED: Bone marrow aspiration and biopsy PROCEDURE: Approved TIME SLOT NEEDED: 1 Hour NOTES: Previously biopsied with imaging guidance SPECIAL LABS/ PROCESSING: N/A Pre-procedure labs: CBC: not needed INR: not needed COVID: not needed SIR Bleeding risk category for this procedure: low risk. Reference from [facility] [employer]: [email or web address] STAFF SIGNATURE: Shaggy Kaur MD DATE: January 21, 2023 TIME: 8:21 PM BX. COORDINATOR INFORMATION LAB RESULTS: PT INR (no units) Date Value 06/11/2021 1.0 INR (no units) Date Value 10/30/2022 1.0 APTT (sec) Date Value 10/30/2022 25.2 06/11/2021 25.5 Platelet Count (k/uL) Date Value 10/30/2022 271 06/11/2021 275 Current Outpatient Medications Medication Sig insulin lispro (HUMALOG KWIKPEN) 100 unit/mL Inject 10 units with breakfast and lunch and 22 units with dinner plus sliding scale (Max daily dose of 78 units daily) lisinopril (ZESTRIL) 20 mg tablet Take 20 mg by mouth once daily. insulin glargine (LANTUS SOLOSTAR U-100 INSULIN) 100 unit/mL (3 mL) Inject 35 Units subcutaneously twice daily. pravastatin (PRAVACHOL) 40 mg tablet Take 1 tablet by mouth once daily. amLODIPine (NORVASC) 10 mg tablet Take 1 tablet by mouth once daily. flash glucose sensor (FREESTYLE MARY ANN 2 SENSOR) kit Check glucose 4 times daily flash glucose scanning reader (FREESTYLE MARY ANN 2 READER) Check glucose 4 times daily fluocinonide (LIDEX) 0.05 % ointment Apply to affected areas of rash twice daily x 2 weeks, then once daily x 2 weeks. NOT for face, armpits, or groin omega-3 acid ethyl esters (LOVAZA) 1 gram capsule Take 2 capsules by mouth twice daily. Insulin Syringe-Needle U-100 1 mL 25 x 1 syrg Use 1 syringe once daily to administer peg-interferon dose. ibuprofen (MOTRIN) 800 mg tablet Current Facility-Administered Medications Medication Dose Route Frequency perflutren lipid microspheres 1.3 mL in NaCl (PF) 0.9% 10 mL injection (DEFINITY) INTRAVENOUS DIRECTED PRN sodium chloride 0.9 % (flush) 10 mL (BD POSIFLUSH) 10 mL INTRAVENOUS DIRECTED PRN perflutren lipid microspheres 1.3 mL in NaCl (PF) 0.9% 10 mL injection (DEFINITY) INTRAVENOUS DIRECTED PRN sodium chloride 0.9 % (flush) 10 mL (BD POSIFLUSH) 10 mL INTRAVENOUS DIRECTED PRN perflutren lipid microspheres 1.3 mL in NaCl (PF) 0.9% 10 mL injection (DEFINITY) INTRAVENOUS DIRECTED PRN sodium chloride 0.9 % (flush) 10 mL (BD POSIFLUSH) 10 mL INTRAVENOUS DIRECTED PRN perflutren lipid microspheres 1.3 mL in NaCl (PF) 0.9% 10 mL injection (DEFINITY) INTRAVENOUS DIRECTED PRN sodium chloride 0.9 % (flush) 10 mL (BD POSIFLUSH) 10 mL INTRAVENOUS DIRECTED PRN perflutren lipid microspheres 1.3 mL in NaCl (PF) 0.9% 10 mL injection (DEFINITY) INTRAVENOUS DIRECTED PRN sodium chloride 0.9 % (flush) 10 mL (BD POSIFLUSH) 10 mL INTRAVENOUS DIRECTED PRN perflutren lipid microspheres 1.3 mL in NaCl (PF) 0.9% 10 mL injection (DEFINITY) INTRAVENOUS DIRECTED PRN sodium chloride 0.9 % (flush) 10 mL (BD POSIFLUSH) 10 mL INTRAVENOUS DIRECTED PRN ALLERGIES No Known Allergies FILMS SENT TO WORKSTATION: GUIDELINES FOR HOLDING ANTI-PLATELET AND ANTI- COAGULATION THERAPY: None on File NURSE SIGNATURE: Sadaf Barry RN DATE: January 21, 2023 TIME: 5:27 PM STAFF-INITIATED RADIOLOGY BIOPSY / ASPIRATION / DRAIN REQUEST FORM Date: January 21, 2023 Time: 3:58 PM PATIENT CONTACT INFORMATION: Best way to reach patient [phone] SCHEDULING: Date: 04/18/2023 (Specific requests must be greater than 10 business days from the date of request) RADIOLOGY SERVICE GROUP (Abdominal / Thoracic / MSK / Neuro): Bone- Biopsy Site: Bone SPECIFICS OF THE REQUEST (Please be as detailed as possible): BIOPSY of MASS - BONE (Specify) marrow / Biopsy Type: Core Biopsy and aspirate SPECIAL REQUESTS: TISSUE SAMPLE, LABWORK: Routine Evaluation MEDICAL DIAGNOSIS: CML (i.e. Known primary cancer or suspected diagnosis) IMAGING STUDY AND DATE THAT IS THE BASIS OF THE REQUEST: Date: n/a (Note: Requests for random organ biopsies, specifically liver and kidney random biopsies do not need imaging.) IMAGING: [facility] (If the imaging was obtained outside the [facility] system, PLEASE upload for review prior to approval.) Note to all persons requesting biopsies: All biopsy requests will be scheduled as quickly as possible, based on the clinical urgency, availability of appointment times, the need to hold anti-thrombolytic therapy (aspirin and other blood thinners) and the patient s schedule, including the need for an available uke driver. If a percutaneous biopsy or drainage is not felt to be safe or an alternative method for establishing a diagnosis is possible, this will be discussed directly with the requesting physician. documented in this encounter [facility] 01-22-2023 Note [facility] 01-22-2023 Note [facility] 01-22-2023 History of Present illness Narrative Summary: ACTG 1920 / 20-998 cycle 33 day 28 ACTG 1920 20-998 A phase 1b study of the pharmacokinetics, safety and efficacy of orally administered [id number] in subjects with refractory chronic myeloid leukemia (CML). Patient is here for screening for ACTG 1920 / IRB 20-998. 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 06/19/2020 Patient met all inclusion and exclusion criteria and deemed eligible to participate on the study by the sponsor 01/23/2023 Cycle 33 day 28 Subject #: [id number] Patient met with research team, pleasant and engaged in conversation. Patient denies any side effects to report. Dr. Howell discussed with the patient his disease response. discussed patient has a cytogenetic response and not a major molecular response. discussed plan of care to continue on clinical trial. Patient verbalized understanding and is in agreement. reviewed all labs and AE's. ECHO: done 01/22/2023 not resulted yet. BMBx: scheduled for 04/18/2023 EKG: QTcF 428, 417, 413 ms PE: ECO Ankle-brachial index: 1000 Left brachial 143/82 Left ankle 160/77 VS: 01/22/2023 Weight 124.7 kg (275 lb) BSA 0 BMI 0 Temp 36.3 ?C (97.4 ?F) Pulse 82 Resp 18 BP 151/82 PAST MEDICAL HISTORY Diagnosis Date Status CML (chronic myelocytic leukemia) (HCC) 12/2011 Active chronic phase not controlled Hypertension 09/14/2015 Active controlled without medication ADHD >10 years Active controlled without medication Gastritis Not active Chronic diarrhea Not active Morbid obesity >10 years Active back pain >10 years Active controlled with medication chronic pruritic rash >10 years Active intermittently controlled without medication moderate upper septal asymmetric left ventricular hypertrophy 05/05/2017 Present floaters in both eyes (eye exam 05/05) 107900 Active no medication or treatment Diabetes 12/2019 Active controlled with medication Rash 11/2019 Active uncontrolled,medication to start 05/29/2020 PAST SURGICAL HISTORY Procedure Laterality Date BACK SURGERY HX Prior to 03/2012 L4 and L5 infusion SC ANESTH,KNEE JOINT; NOS right Prior to 03/2012Prior to 03/2012 right knee REMOVAL GALLBLADDER Prior to 03/2012 TONSILLECTOMY HX Prior to 03/2012 Social history: Patient has been for 26 years with adult children. Patient denies illegal drug use and drinks alcohol very rarely. Patient is a non-smoker. Transfusion History: None History of Prior Medical Treatments for CML: Gleevec 02/12/2012 - 11/2012 Nilotinib 12/2012 - 02/2013 Dasatinib 02/2013 - 12/2014 Nilotinib 12/2014 -- 03/2016 Bosutinib 03/2016 - 05/02/2017 [facility] 2915 15-875 trial of Ponatinib 05/21/2017 - 07/15/2019 pegylated interferon amber-2a on 12/14/2019 - 01/27/2020 BCR-ABL mutation history: bcr-abl transcript levels reported at 2.65% IS on 11/03/2012 bcr-abl transcript levels reported 1.89% IS on 02/26/2013 bcr-abl transcript levels reported 0.26% IS on 11/29/2013 bcr-abl transcript levels reported 1.34% IS in 05/2015 2.16 in November of 2015 72.6 in February of 2016 bcr-ab transcript levels to 3 in Jun went up to 15.78. 04/24/2017 - 75.76% IS (prior to starting ponatinib at 45 mg on 05/21/2017) 05/02/2017 - 70% IS 08/12/2017 - 3.4% IS (~3 months of ponatinib at 45 mg) 11/04/2017 - 1.2% IS 01/27/2018 - 1.1% IS 04/21/2018 - 0.85% IS (30 mg ponatinib) BCR-ABL transcripts have been gradually increasing since decreased dose of Ponatinib. Last level drawn on 03/2019 noted 9.5% IS. 10/30/2022 BCR/ABL1 %IS 1.1278 BCR/ABL1 P210 MR 1.95 Medications: NKA Medication Dose Start Date Stop Date Comments Ibuprofen 800 mg once daily as needed per patient 10/2015 For general body aches Insulin Lantus 50 units daily Per patient 05/2022 For diabetes Hydrea 500 mg 2 capsules by mouth once daily 12/2019 ~ 04/17/2020 For leukocytosis Hydrea 500 mg capsules orally twice a day 05/01/2020 05/11/2020 increased to 05/11/2020 For leukocytosis Hydrea (2) 500 mg capsules orally 2x/day 05/11/2020 05/17/2020 For leukocytosis Hydrea (2) 500 mg capsules orally 3x/day 05/17/2020 05/22/2020 For leukocytosis Hydrea Tapering dose: (2) 500 mg capsules orally 2x/day for 3 days. Then (2) 500 mg capsules orally once a day for 2 days then stop. 05/22/2020 05/26/2020 For leukocytosis Kenalog cream Apply 2x/day to affected areas. 05/29/2020 For rash Hydrea (2) 500 mg capsules orally 2x/day 06/12/2020 06/16/2020 For leukocytosis Hydrea (2) 500 mg capsules orally 3x/day 06/16/2020 06/17/2020 For leukocytosis Lovaza (2) 1gm capsules orally 2x/day 06/22/2020 on hold restarted 09/03/2021 Hypertriglyceridemia Advil 400 mg orally every 6 hours as needed 07/10/2020 For headache Decadron 4 mg orally 10/04/2020 10/06/2020 For poison radha Lidex ointment 0.05% Apply twice daily for 2 weeks, then once daily for 2 weeks For rash. Do not apply to face, armpits or groin Colace 100 mg orally once a day as needed 06/07/2021 Constipation Norvasc 10 mg orally once a day 05/13/2022 Blood pressure Lispro (insulin) 10 units sq at breakfast and lunch, 14 units sq at dinner 05/2022 Diabetes Avalon 5/325 mg 1 tab PO x 1 05/16/2022 05/16/2022 Hand pain Zofran 4 mg 4 mg IV x 1 05/16/2022 05/16/2022 Nausea LR 1L 1L IV over one hr x1 05/16/2022 05/16/2022 Dizziness Sliding scale insulin with Humalog If Blood Glucose (mg/dL) is <150 Give 0 units 151-200 Give 2 unit 201-250 Give 4 units 251-300 Give 6 units 301-350 Give 8 units 351-400 Give 10 units >400 Give 12 units and notify provider 07/15/2022 DM Toxicities: CTCAE V. 5 SCREENING all predate therapy, are chronic conditions and will not be actively followed unless they worsen during the clinical trial. Fasting labs Day -28 06/05/2020 Leukocytosis Grade 3 UNRELATED Start date: 05/01/2020. Resolved: ongoing. Drugs used to treat: yes. Outcome: Still present. Hypertension:Stage Prehypertension Grade 1 UNRELATED Start date:05/01/2020. Resolved: ongoing. Drugs used to treat: none. Outcome: Still present. Hyperglycemia Grade 1 UNRELATED Start date: 05/01/2020. Resolved: ongoing. Drugs used to treat: none. Outcome: Still present Hypertriglyceridemia Grade 1 UNRELATED Start date: 05/22/2020. Resolved: ongoing. Drugs used to treat: none. Outcome: Still present. Rash on trunk of body Grade 1 UNRELATED Start date: 05/29/2020. Resolved: ongoing. Drugs used to treat: yes. Outcome: Still present. Fasting labs Day -7 06/12/2020 Aspartate aminotransferase increased Grade 1 UNRELATED Start date: 06/12/2020. Resolved: ongoing. Drugs used to treat: none. Outcome: Still present. Hyperglycemia Grade 2 UNRELATED Start date: 06/05/2020. Resolved: ongoing. Drugs used to treat:yes. Outcome: Still present. Hypertriglyceridemia Grade 2 UNRELATED Start date: 06/12/2020. Resolved: ongoing. Drugs used to treat: none. Outcome: Still present. Alkaline phosphatase Grade 1 Unrelated (prior to drug)Start date: 06/19/2020. Resolved: ongoing. Drugs used to treat:no Outcome:present intermittently. Hyponatremia Grade 1 Unrelated (prior to drug) Start date 06/19/2020 Resolved:ongoing.Drugs used to treat: no. Outcome: present intermittently Fasting labs 01/22/2023: CTCAE v.5 Hypertension Grade 1 Unrelated Start date 08/14/2020 Resolved:ongoing. Drugs used to treat:no. Outcome: still present. Hypertension Grade 2 Unrelated Start date 06/11/2021 Resolved:ongoing. Drugs used to treat:yes 05/13/2022 Outcome: monitor. Cholesterol high Grade 1 Unrelated Start date: 10/13/2020esolved: ongoing. Drugs used to treat: none. Outcome: still present. Constipation Grade 1 Unrelated Start date:06/07/2021.Resolved:ongoing. Drugs used to treat: yes. Outcome: present intermittently. Fatigue Grade 1 Unrelated Start date:06/07/2021.Resolved:ongoing. Drugs used to treat: no. Outcome: present intermittently. Right knee pain Grade 1 Unrelated Start date:~01/2022 Resolved: ongoing Drugs used to treat: no. Outcome: present Nausea Grade 1. UNRELATED. Start date:~12/04/2022. Resolve date: ongoing. Drugs to treat: no. Outcome: present intermittently Dizziness Grade 1. UNRELATED. Start date: 05/16/2022. Resolve date: 05/16/2022. Drugs to treat: LR. Outcome: resolved Right wrist ganglion cyst Grade 1. UNRELATED. Start date: 04/2022. Resolve date: ongoing. Drugs to treat: norco. Outcome: still present, improving Right shoulder pain Grade 1 Unrelated Start date:~week of 12/07/2022 Resolved: ongoing Drugs used to treat: ibuprofen Outcome: present Hyponatremia Grade 1 Unrelated Start date 01/22/2023 Resolved:ongoing. Drugs used to treat:no. Outcome: still present. Resolved AE's: Hypertriglyceridemia Grade 3 Unrelated(prior to drug) Start date: 06/19/2020. Resolved: 06/26/2020 Drugs used to treat: none. Outcome resolved to baseline day -28 Amylase Grade 1 Possibly related Start date 06/26/20 Resolved:07/03/2020. Drugs used to treat: no. Outcome: resolved. Lipase Grade 3 Possibly related Start date 06/26/20 Resolved:07/03/2020.Drugs used to treat: no. Outcome: resolved. Lipase Grade 1 Possibly related Start date:07/13/2020 Resolved: 07/17/2020 Drugs used to treat: no. Outcome:resolved. Constipation Grade 1 Unrelated Startdate:06/22/20.Resolved:06/23/19. Drugs used to treat: no. Outcome: resolved. Hypoalbuminemia Grade 1 Unrelated Startdate:06/22/20.Resolved: 1Drugs used to treat: no. Outcome: resolved. Platelet count decreased Grade 1 Possibly related Startdate:07/13/20.Resolved:. Drugs used to treat: no. Outcome: resolved. Headache Grade 1 Possibly related Startdate:07/10/2020.Resolved:08/15/19. Drugs used to treat:yes. Outcome: resolved. Lipase Grade 3 Possibly related Start date 08/03/2020 Resolved:08/14/2020.Drugs used to treat: no. Outcome: resolved. Amylase Grade 1 Possibly related Start date 08/03/2020 Resolved:08/14/2020.Drugs used to treat: no. Outcome: resolved. Heart palpitation Grade 1 Unrelated Start date: 08/25/2020. Resolved:08/27/2020. Drugs used to treat:no. Outcome: resolved. Rash Grade 1 Unrelated Start date: 10/04/2020 Resolved:10/06/2020. Drugs used to treat: yes. Outcome:resolved Hyperglycemia Grade 3 Unrelated Start date: 10/13/2020 Resolved: 10/20/2020 Drugs used to treat:yes. Outcome:resolved to Grade 2. Hyponatremia Grade 1 Unrelated (prior to drug) Start date 06/19/2020 Resolved:10/20/2020.Drugs used to treat: no. Outcome: Resolved. Alkaline phosphatase Grade 1 Unrelated (prior to drug)Start date: 06/19/2020. Resolved: 10/27/2020. Drugs used to treat:no Outcome:Resolved. Alanine aminotransferase increased Grade 1 Unrelated Start date: 10/13/2020esolved: 10/20/2020. Drugs used to treat: none. Outcome: Resolved. Lipase increased Grade 1 Possibly related Start date: 10/13/2020esolved: 10/27/2020. Drugs used to treat: none. Outcome: Resolved to normal. Lipase increased Grade 2 Possibly related Start date: 10/20/2020esolved:10/27/2020. Drugs used to treat: none. Outcome: Resolved to normal. Hypertriglyceridemia Grade 3 Possibly related Start date: 10/13/2020. Resolved:10/20/2020 Drugs used to treat: none. Outcome:Resolved to Grade 2. Hypertriglyceridemia Grade 2 Possibly related Start date: 10/20/2020. Resolved:10/27/2020 Drugs used to treat: none. Outcome:Resolved to grade 1 screening. Hypoalbuminemia Grade 1 Unrelated Start date: 10/20/2020. Resolved:11/23/2020 Drugs used to treat: none. Outcome: resolved. Rash Possibly related bilateral lower abdomen, left upper chest, behind both knees, and right scapula area. Grade 1 Unrelated Start date: 11/07/2020 Resolved:02/07/2021. Drugs used to treat:yes. Outcome: resolved. Hypoalbuminemia Grade 1 Unrelated Start date:11/26/2021 Resolved: 02/18/2022 Drugs used to treat: no. Outcome: resolved Dizziness Grade 1. UNRELATED. Start date: 05/16/2022. Resolve date: 05/16/2022. Drugs to treat: LR. Outcome: resolved Lipase Grade 1 Possibly related Start date:09/03/2021 Resolved: 05/13/2022 Drugs used to treat: no. Outcome:resolved Nausea Grade 1. UNRELATED. Start date: 05/16/2022. Resolve date: 05/16/2022. Drugs to treat: zofran. Outcome: resolved Dizziness Grade 1. UNRELATED. Start date: 05/16/2022. Resolve date: 05/16/2022. Drugs to treat: LR. Outcome: resolved Patients last dose of study drug was 01/21/2023. Next dose due on 01/23/2023 Re-educated patient on how to complete the medication diary. Educated patient how to take the drug and how to transport and store drug going forward it can be stored at room temperature. Instructed patient that he will need to return drug and all bottles/unused medication at his next visit. Patient has 3 prong medal folder with drug information, contact information for research team, after hours number. Patient verbalized understanding of all information provided. Patient returned diary from previous visit completed. New diary given. Patient returned: 3 bottles, 2 empty and 1 bottle with 52 pills. The count is inaccurate. Return count should have been 54. Patient was given drug: yes. 3 bottles of drug. 60 pills per bottle of 10 mg pills. To be dosed with 30 mg of HQP on 01/23/2023 every other day. Lot# [id number] Patient aware next appointment is 11/01/2022 for bone marrow biopsy and he reports he has [facility] for appointments. Patient presented today to participate on the trial ACTG 1920 / IRB 20-998. Patient signed consent previously on 05/29/2020 with nurse present prior to having ANY procedures done. Copy given to the patient. Patient had labs drawn, and then met with the clinical team. Patient understands that he must call nurse or MD prior to taking any new medications as well as to stopping any medications. Patient also understands to call nurse/MD should she have any new medical issues arise and/or goes to the hospital for any reason. Patient is aware to monitor for fevers and to call and/or go to the nearest emergency room for temperatures of 100.4 or greater. 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 Patient understands that this participation is voluntary and that he may withdraw at any time during the trial. Emma Tuttle RN, OCN documented in this encounter [facility] 01-22-2023 History of Present illness Narrative [facility] Department of Hematologic Oncology and Blood Disorders PATIENT NAME: Derrell Avitia [facility] NO: [id number] Date of service: 01/22/2023 Reason for visit: Follow up of CML on clinical trial Diagnosis: 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 (imatinib, dasatinib, nilotinib, bosutinib and ponatinib) Current Treatment - On a clinical trial - ACTG 1920 20-998 Title: A phase 1b study of the pharmacokinetics, safety and efficacy of orally administered [id number] in subjects with refractory chronic myeloid leukemia (CML). Day 1 was 06/19/2020. Cycle 5 scheduled to start on 10/13/2020 was delayed to elevated lipase levels. Today is day 30 of cycle 30 (or day 1 of cycle 31) today. He is being dosed at 30 mg every other day. Molecular monitoring with qRT-PCT for p210 bcr-abl transcripts since starting the clinical trial in June of 2020 - 05/29/2020 (prior to starting clinical trial) - >50%IS 09/15/2020 - 5.02% 12/22/2020 - 3.179% 06/15/2021 - 0.9714% (2 MR) 02/18/2022 - 0.5562% 05/13/2022 - 0.6007% (2.2 log reduction) 08/05/2022 - 0.5883% (2.23 log reduction) 10/30/2022 - 1.1278% (1.95 log reduction) 01/22/2023 - in process Impression: This is a 52 year old male with chronic phase CML who is here for follow up on clinical trial Recommendations: 1) Chronic Myeloid Leukemia (CML) in chronic phase with failure or intolerance to multiple TKI's (dasatinib, imatinib, nilotinib, bosutinib and ponatinib) - He started the CML clinical trial - ACTG 1920 20-998 Title: A phase 1b study of the pharmacokinetics, safety and efficacy of orally administered [id number] in subjects with refractory chronic myeloid 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 He has completed 27 cycles. He achieved early 3 month molecular response and five serial bone marrow biopsies done as part of the clinical trial protocol on 09/15/2020, 12/22/2020, 06/15/2021, 11/29/2021, 05/16/2022 and 10/12/2022 and he remains in CCyR. He has however not met the criteria for MMR. Follow up as per clinical trial protocol. 2) Hypertension - On amlodipine at 10 mg once daily and follow up with his PCP. 3) Severe obstructive sleep apnea - Confirmed on polysomnography test done on 12/21/2017. He has been recommended CPAP but does not use it. 5) Psoriasiform dermatitis / pruritic papular erythematous rash on trunk - Has tried cetrizine and kenalog in the past. Can use the same. Unclear whether this I drug related as he has had a long history of intermittent outbreaks of rash. 6) Diabetes mellitus - On long and short acting insulin. He needs annual screening for diabetic neuropathy, retinopathy and renal disease. 7) History of intermittent mild hyponatremia - Likely study-drug related based on the temporality of onset coinciding with initiation of the study drug. 8) History of elevated lipase and history of pancreatitis while on ponatinib - Close monitoring. Most recent lipase levels from 01/22/2023 normal. 9) Hypercholesterolemia and hypertriglyceridemia - He has underlying risk factors for CAD and CVA. His cholesterol and triglycerides remains high. Continued monitoring. Clinical course - - He was diagnosed with CML in December of 2011 - A bone marrow biopsy 01/02/2012 showed a hypercellular bone marrow (90%) with markedly expanded myeloid compartment, relative erythroid hypoplasia and decreased megakaryocytes, presence of storage iron and no significant increase in reticulin fibrosis. CBC with differential from the same [place] [address], [place] [address], monocytosis (5700), 6700 lymphocytes, 500 basophils and thrombocytopenia with platelets at 303255. Metaphase cytogenetics showed presence of t(9;22) in all 20 metaphases. - Started on imatinib at 400 mg once daily on 02/12/2012. Rising bcr-abl transcript levels reported at 2.65% IS on 11/03/2012 (after 8 months of imatinib therapy). A bone marrow evaluation on 11/19/2012 (limited analysis as no core biopsy specimen was obtainable) showed a cellular bone marrow with trilineage hematopoiesis, 1% blasts, adequate megakaryocytes, presence of storage iron but no increase in ring sideroblasts. - Because of failure to achieve MMR and with rising transcript levels, he was switched to nilotinib 400 mg twice daily on 12/28/2012. - Development of rash on his face and arms and unspecified intolerance, he was switched to dasatinib 100 mg daily on 02/22/2013 after being on nilotinib for approximately 2 months. - On dasatinib therapy, bcr-abl transcript level dropped to 0.26 %IS on 11/29/2013 from 1.89 IS% on 02/26/2013 but thereafter the transcript levels started rising steadily reaching 1.61 IS% as of 11/11/2014. He never achieved a MMR on dasatinib despite being on it for 1 year and nine months. He was referred here for further evaluation in November of 2014. Kinase domain mutation analysis identified no mutations. - Rechallenged with nilotinib at 300 mg twice daily in Feb 2015. Serial measurements of p210 bcr-abl transcript levels were as follows on nilotinib - IS% was 1.34 in May of 2015, 2.16 in November of 2015 and 72.6 in February of 2016, consistent with failure of nilotinib. 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 - Initiated on bosutinib on Mar 2016 - initial response with drop in bcr-ab transcript levels to 3 in Jun 2016 but by Mar 2017 went up to 15.78. - He was enrolled on a clinical trial, ARIA 2915 15-875 A Randomized, Open-label, Phase 2 Trial of Ponatinib in Patients with Resistant Chronic Phase Chronic Myeloid Leukemia to Characterize the Efficacy and Safety of a Range of Doses on 05/21/2017 (day 1 of cycle 1). He was randomized to 45 mg daily. He has had three episodes of pancreatitis that required dose reduction or interruption. The last dose of the drug was 07/15/2019. He completed a total of 28 cycles on the clinical trial. Treatment course, dose modifications, response ( p210 bcr-abl transcripts levels by qRT-PCR), and complications while on ponatinib trial- 1) 04/24/2017 - 75.76% IS (prior to starting ponatinib at 45 mg on 05/21/2017) 2) 05/02/2017 - 70% IS 3) 08/12/2017 - 3.4% IS (~3 months of ponatinib at 45 mg) 4) 11/04/2017 - 1.2% IS ( ~ 6 months on ponatinib, dose reduced to 30 mg one daily from 45 mg on 09/20/2017 due to pancreatitis) 5) 01/27/2018 - 1.1% IS (on 30 mg of ponatinib since 09/20/2017) 6) 04/21/2018 - 0.85% IS (30 mg ponatinib) 7) 05/08/2018 - ponatinib dose reduced to 15 mg once daily per protocol 8) A bone marrow biopsy from 05/03/2019 showed normocellular marrow (50%) with trilineage hematopoiesis, decreased iron stores. Cytogenetics showed 46,XY,t(9;22)(q34;q11.2)[3]/46,XY[ 17], consistent with failure to achieve CCyR. BCR-ABL transcripts have been gradually increasing since decreased dose. Last level drawn on 03/2019 noted 9.5% IS. 9) 06/18/2019 - ponatinib dose increased to 30 mg daily 10) Hospitalized from 06/23/2019 to 06/25/2019 with pancreatitis (patient reports lipase elevated at 960). Ponatinib held on 06/23/2019 11) ED visit on 06/29/2019 for chest pain - CT chest negative for PE. Stress test was negative. 12) Resumed ponatinib at 30 mg on 07/09/2019 (held from 06/23/2019 to 07/08/2019) 13) He was hospitalized from 07/15/2019 to 07/19/2019 for pancreatitis - lipase elevated at 1966. Ponatinib was discontinued on 07/15/2019. - He underwent a bone marrow biopsy on 08/16/2019 that showed a normocellular marrow with trilineage hematopoiesis, 1% blasts and in complete cytogenetic remission (CCyR). 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 - A bone marrow transplant was deferred as long as it may be possible to maintain him in CCyR. He has a haploidentical brother and a well-matched unrelated donor. - He was started on pegylated interferon amber-2a on 12/14/2019 and discontinued on 01/27/2020 due to patient's poor compliance with monitoring. - His CML was being managed with hydroxyurea while waiting for enrollment in a clinical trial. - He was presented and consented for the clinical trial - ACT 1920 20-998 Title: A phase 1b study of the pharmacokinetics, safety and efficacy of orally administered [id number] in subjects with refractory chronic myeloid leukemia (CML). He underwent a screening marrow on 05/03/2020 that showed CML in chronic phase (0% blasts) and identification of t(9;22) in all 20 metaphases. As the T315I was not checked as part of initial screening, his clinical trial date was deferred to 06/19/2020 to allow time for re-screening. BCR-ABL kinase domain mutation analysis from 05/29/2020 identified no mutations including T315I. Quantitative RT-PCT for p210 bcr-abl from 05/29/2021 showed levels at >50%IS. - He started the clinical trial on 06/19/2020.He underwent a follow up bone marrow biopsy on 09/15/2020 that showed complete cytogenetic remission. - He stopped taking the study drug on 10/03/2020 as he had misplaced it. Cycle 5 scheduled to start on 10/15/2020 was delayed due to elevated lipase. He was recently exposed to poison radha in September and broke out in rash around his left eye, face, trunk and chest for which he completed a short course of dexamethasone. - Five serial bone marrow biopsies done as part of the clinical trial protocol (09/15/2020, 12/22/2020, 06/15/2021, 11/29/2021 and 05/16/2022) shows him to be in CCyR. Review of system including interval history: Interval History - Recently hurt his right shoulder following an accidental fall and will be having MRI of the right shoulder. He gets relief with taking NSAIDs. Constitutional: No fever, anorexia or malaise. + chronic stable fatigue (rates it as 3-4/10 with 10 being the worst) Eyes: No change in vision, blurriness, diplopia, redness, or irritation. ENT: No mouth sores or bleeding gums; no hoarseness of voice. No epistaxis or other nasal problems. No changes in hearing, vertigo, or tinnitus. Respiratory: No coughing, wheezing, dyspnea at rest, exertional dyspnea, or hemoptysis. Cardiovascular: No anginal symptoms, palpitations, orthopnea, PND, syncopal events or presyncopal events. Gastrointestinal: No nausea, no vomiting, heartburn or acid reflux, constipation or abdominal cramping. Bowel habit is unchanged; and no melena or hematochezia. Genitourinary: No urgency, frequency, dysuria, or hematuria. Musculoskeletal: + stable chronic joint pains/arthritis. Unrestricted ambulation. Skin: no rash Neurological: No syncope, near-syncope, or seizures; no headaches or alteration in sensorium or motor strength. Psychiatric: Memory, short term & manager exchange intact; no disturbance in sleep pattern and denies symptoms of depression. Endocrine: Negative for temperature intolerance, unusual sweating, or symptoms of glucose intolerance. Hematologic/Lymphatic: Negative for prolonged bleeding, easy bruising, and swollen nodes. No lower extremity edema. Allergic/Immunologic: No itching, or jaundice. Past medical and surgical history: - Chronic Phase CML - Hypertension - ADHD - Gastritis - Chronic diarrhea preceding his dx of CML and prior to starting imatinib - Morbid obesity - Psoriasiform dermatitis - Cholecystectomy - Tonsillectomy - Back Surgery - Right knee arthroscopy - chronic pruritis rash for > 10 years Current medication: Reviewed from [facility] and integrated in assessment and plan. Social History: He is . 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 He does not smoke cigarettes and has not used any illicit drugs. He drinks alcoholic beverages occasionally. Family History: Father has CAD and had cardiac surgery, he also has DM. Still living Mother has DM. He has one brother is doing well. He has 2 children, both are doing well. He denies any prior exposure to toxic chemicals, radiation therapy, chemotherapy. Physical Examination: Vitals: BP 151/82 Pulse 82 Temp 36.3 C (97.4 F) (Oral) Resp 18 Wt 124.7 kg (275 lb) SpO2 99% BMI 38.90 kg/m ECOG - 1 Gen: Awake, alert, oriented x 3, NAD, accompanied by his Skin: Scattered erythematous areas with papular rash on trunk (front, back and sides) - continues to improve Eyes: sclera anicteric Lungs: Normal chest expansion, clear breath sounds Heart: Normal rate and rhythm, no murmurs Abdomen: protuberant, soft, +BS- non-tender - spleen not appreciated but difficult due to body habitus Extremities: no edema Labs: CBC with differential reviewed from [facility] from 01/22/2023 and integrated in assessment and plan. William Howell MD PhD MPH Associate Staff Hematologic Oncology and Blood Disorders Pager [phone] Date of service: 01/22/2023 documented in this encounter [facility] 01-22-2023 Nurse Note Additional intake questions: Has the patient had fever, nausea, vomiting, diarrhea, constipation, fatigue for > 1 week? No Does the patient have a decreased appetite? No Does patient want to see a Car Tracer? No (yes to any of above refer patient to schedulers for dietitian appointment) ) Does patient have any new or increased numbness or tingling of extremities? Yes, bilateral feet per patient Is patient interested in fertility information? No Does patient need any prescription refills? No Does patient have an advanced directive in place? No, Patient referred to [facility] Electronically Signed By: Marcelino Finney LPN documented in this encounter [facility] 12-06-2022 Note [facility] 12-06-[facility]22 History of Present illness Narrative [facility] Department of Hematologic Oncology and Blood Disorders PATIENT NAME: Derrell Avitia [facility] NO: [id number] Date of service:10/30/2022 Reason for visit: Follow up of CML on clinical trial Diagnosis: 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 (imatinib, dasatinib, nilotinib, bosutinib and ponatinib) Current Treatment - On a clinical trial - ACTG 1920 20-998 Title: A phase 1b study of the pharmacokinetics, safety and efficacy of orally administered [id number] in subjects with refractory chronic myeloid leukemia (CML). Day 1 was 06/19/2020. Cycle 5 scheduled to start on 10/13/2020 was delayed to elevated lipase levels. Today is day 30 of cycle 30 (or day 1 of cycle 31) today. He is being dosed at 30 mg every other day. Molecular monitoring with qRT-PCT for p210 bcr-abl transcripts since starting the clinical trial in June of 2020 - 05/29/2020 (prior to starting clinical trial) - >50%IS 09/15/2020 - 5.02% 12/22/2020 - 3.179% 06/15/2021 - 0.9714% (2 MR) 02/18/2022 - 0.5562% 05/13/2022 - 0.6007% (2.2 log reduction) 08/05/2022 - 0.5883% (2.23 log reduction) 10/30/2022 - 1.1278% (1.95 log reduction) Impression: This is a 52 year old male with chronic phase CML who is here for follow up on clinical trial Recommendations: 1) Chronic Myeloid Leukemia (CML) in chronic phase with failure or intolerance to multiple TKI's (dasatinib, imatinib, nilotinib, bosutinib and ponatinib) - He started the CML clinical trial - [facility] 1920 20-998 Title: A phase 1b study of the pharmacokinetics, safety and efficacy of orally administered [id number] in subjects with refractory chronic myeloid 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 He has completed 27 cycles. He achieved early 3 month molecular response and five serial bone marrow biopsies done as part of the clinical trial protocol on 09/15/2020, 12/22/2020, 06/15/2021, 11/29/2021 and 05/16/2022 show him in CCyR. He has however not met the criteria for MMR despite being on this TKI for 29 months. He has a bomne marrow biopsy as per protocol on 11/01/2022. Follow up as per clinical trial protocol. 2) Hypertension - On amlodipine at 10 mg once daily and follow up with his PCP. 3) Severe obstructive sleep apnea - Confirmed on polysomnography test done on 12/21/2017. He has been recommended CPAP but does not use it. 5) Psoriasiform dermatitis / pruritic papular erythematous rash on trunk - Has tried cetrizine and kenalog in the past. Can use the same. Unclear whether this I drug related as he has had a long history of intermittent outbreaks of rash. 6) Diabetes mellitus - On long and short acting insulin. He needs annual screening for diabetic neuropathy, retinopathy and renal disease. 7) History of chronic mild hyponatremia - Resolved. Likely study-drug related based on the temporality of onset coinciding with initiation of the study drug. 8) History of elevated lipase and history of pancreatitis while on ponatinib - Close monitoring. Most recent lipase levels from 10/30/2022 normal. 9) Hypercholesterolemia and hypertriglyceridemia - He has underlying risk factors for CAD and CVA. His cholesterol and triglycerides remains high. Continued monitoring. Clinical course - - He was diagnosed with CML in December of 2011 - A bone marrow biopsy 01/02/2012 showed a hypercellular bone marrow (90%) with markedly expanded myeloid compartment, relative erythroid hypoplasia and decreased megakaryocytes, presence of storage iron and no significant increase in reticulin fibrosis. CBC with differential from the same date [place] [address], [place] [address], monocytosis (5700), 6700 lymphocytes, 500 basophils and thrombocytopenia with platelets at 136596. Metaphase cytogenetics showed presence of t(9;22) in all 20 metaphases. - Started on imatinib at 400 mg once daily on 02/12/2012. Rising bcr-abl transcript levels reported at 2.65% IS on 11/03/2012 (after 8 months of imatinib therapy). A bone marrow evaluation on 11/19/2012 (limited analysis as no core biopsy specimen was obtainable) showed a cellular bone marrow with trilineage hematopoiesis, 1% blasts, adequate megakaryocytes, presence of storage iron but no increase in ring sideroblasts. - Because of failure to achieve MMR and with rising transcript levels, he was switched to nilotinib 400 mg twice daily on 12/28/2012. - Development of rash on his face and arms and unspecified intolerance, he was switched to dasatinib 100 mg daily on 02/22/2013 after being on nilotinib for approximately 2 months. - On dasatinib therapy, bcr-abl transcript level dropped to 0.26 %IS on 11/29/2013 from 1.89 IS% on 02/26/2013 but thereafter the transcript levels started rising steadily reaching 1.61 IS% as of 11/11/2014. He never achieved a MMR on dasatinib despite being on it for 1 year and nine months. He was referred here for further evaluation in November of 2014. Kinase domain mutation analysis identified no mutations. - Rechallenged with nilotinib at 300 mg twice daily in Feb 2015. Serial measurements of p210 bcr-abl transcript levels were as follows on nilotinib - IS% was 1.34 in May of 2015, 2.16 in November of 2015 and 72.6 in February of 2016, consistent with failure of nilotinib. 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 - Initiated on bosutinib on Mar 2016 - initial response with drop in bcr-ab transcript levels to 3 in Jun 2016 but by Mar 2017 went up to 15.78. - He was enrolled on a clinical trial, ARIA [id number] A Randomized, Open-label, Phase 2 Trial of Ponatinib in Patients with Resistant Chronic Phase Chronic Myeloid Leukemia to Characterize the Efficacy and Safety of a Range of Doses on 05/21/2017 (day 1 of cycle 1). He was randomized to 45 mg daily. He has had three episodes of pancreatitis that required dose reduction or interruption. The last dose of the drug was 07/15/2019. He completed a total of 28 cycles on the clinical trial. Treatment course, dose modifications, response ( p210 bcr-abl transcripts levels by qRT-PCR), and complications while on ponatinib trial- 1) 04/24/2017 - 75.76% IS (prior to starting ponatinib at 45 mg on 05/21/2017) 2) 05/02/2017 - 70% IS 3) 08/12/2017 - 3.4% IS (~3 months of ponatinib at 45 mg) 4) 11/04/2017 - 1.2% IS ( ~ 6 months on ponatinib, dose reduced to 30 mg one daily from 45 mg on 09/20/2017 due to pancreatitis) 5) 01/27/2018 - 1.1% IS (on 30 mg of ponatinib since 09/20/2017) 6) 04/21/2018 - 0.85% IS (30 mg ponatinib) 7) 05/08/2018 - ponatinib dose reduced to 15 mg once daily per protocol 8) A bone marrow biopsy from 05/03/2019 showed normocellular marrow (50%) with trilineage hematopoiesis, decreased iron stores. Cytogenetics showed 46,XY,t(9;22)(q34;q11.2)[3]/46,XY[ 17], consistent with failure to achieve CCyR. BCR-ABL transcripts have been gradually increasing since decreased dose. Last level drawn on 03/2019 noted 9.5% IS. 9) 06/18/2019 - ponatinib dose increased to 30 mg daily 10) Hospitalized from 06/23/2019 to 06/25/2019 with pancreatitis (patient reports lipase elevated at 960). Ponatinib held on 06/23/2019 11) ED visit on 06/29/2019 for chest pain - CT chest negative for PE. Stress test was negative. 12) Resumed ponatinib at 30 mg on 07/09/2019 (held from 06/23/2019 to 07/08/2019) 13) He was hospitalized from 07/15/2019 to 07/19/2019 for pancreatitis - lipase elevated at 1966. Ponatinib was discontinued on 07/15/2019. - He underwent a bone marrow biopsy on 08/16/2019 that showed a normocellular marrow with trilineage hematopoiesis, 1% blasts and in complete cytogenetic remission (CCyR). 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 - A bone marrow transplant was deferred as long as it may be possible to maintain him in CCyR. He has a haploidentical brother and a well-matched unrelated donor. - He was started on pegylated interferon amber-2a on 12/14/2019 and discontinued on 01/27/2020 due to patient's poor compliance with monitoring. - His CML was being managed with hydroxyurea while waiting for enrollment in a clinical trial. - He was presented and consented for the clinical trial - ACTG [id number] Title: A phase 1b study of the pharmacokinetics, safety and efficacy of orally administered [id number] in subjects with refractory chronic myeloid leukemia (CML). He underwent a screening marrow on 05/03/2020 that showed CML in chronic phase (0% blasts) and identification of t(9;22) in all 20 metaphases. As the T315I was not checked as part of initial screening, his clinical trial date was deferred to 06/19/2020 to allow time for re-screening. BCR-ABL kinase domain mutation analysis from 05/29/2020 identified no mutations including T315I. Quantitative RT-PCT for p210 bcr-abl from 05/29/2021 showed levels at >50%IS. - He started the clinical trial on 06/19/2020.He underwent a follow up bone marrow biopsy on 09/15/2020 that showed complete cytogenetic remission. - He stopped taking the study drug on 10/03/2020 as he had misplaced it. Cycle 5 scheduled to start on 10/15/2020 was delayed due to elevated lipase. He was recently exposed to poison radha in September and broke out in rash around his left eye, face, trunk and chest for which he completed a short course of dexamethasone. - Five serial bone marrow biopsies done as part of the clinical trial protocol (09/15/2020, 12/22/2020, 06/15/2021, 11/29/2021 and 05/16/2022) shows him to be in CCyR. Review of system including interval history: Constitutional: No fever, anorexia or malaise. + chronic stable fatigue (rates it as 3-4/10 with 10 being the worst) Eyes: No change in vision, blurriness, diplopia, redness, or irritation. ENT: No mouth sores or bleeding gums; no hoarseness of voice. No epistaxis or other nasal problems. No changes in hearing, vertigo, or tinnitus. Respiratory: No coughing, wheezing, dyspnea at rest, exertional dyspnea, or hemoptysis. Cardiovascular: No anginal symptoms, palpitations, orthopnea, PND, syncopal events or presyncopal events. Gastrointestinal: No nausea, no vomiting, heartburn or acid reflux, constipation or abdominal cramping. Bowel habit is unchanged; and no melena or hematochezia. Genitourinary: No urgency, frequency, dysuria, or hematuria. Musculoskeletal: + stable chronic joint pains/arthritis. Unrestricted ambulation. Extremities: pain to the ganglion cyst on right wrist and pain to left hand Skin: no rash Neurological: No syncope, near-syncope, or seizures; no headaches or alteration in sensorium or motor strength. Psychiatric: Memory, short term & retirement intact; no disturbance in sleep pattern and denies symptoms of depression. Endocrine: Negative for temperature intolerance, unusual sweating, or symptoms of glucose intolerance. Hematologic/Lymphatic: Negative for prolonged bleeding, easy bruising, and swollen nodes. No lower extremity edema. Allergic/Immunologic: No itching, or jaundice. Past medical and surgical history: - Chronic Phase CML - Hypertension - ADHD - Gastritis - Chronic diarrhea preceding his dx of CML and prior to starting imatinib - Morbid obesity - Psoriasiform dermatitis - Cholecystectomy - Tonsillectomy - Back Surgery - Right knee arthroscopy - chronic pruritis rash for > 10 years Current medication: Reviewed from [facility] and integrated in assessment and plan. Social History: He is . 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 He does not smoke cigarettes and has not used any illicit drugs. He drinks alcoholic beverages occasionally. Family History: Father has CAD and had cardiac surgery, he also has DM. Still living Mother has DM. He has one brother is doing well. He has 2 children, both are doing well. He denies any prior exposure to toxic chemicals, radiation therapy, chemotherapy. Physical Examination: Vitals: BP 173/78 Pulse 61 Temp 36.9 C (98.4 F) (Oral) Resp 18 Wt 124.3 kg (274 lb) SpO2 98% BMI 38.76 kg/m ECOG - 1 Gen: Awake, alert, oriented x 3, NAD, accompanied by his Skin: Scattered erythematous areas with papular rash on trunk (front, back and sides) - continues to improve Eyes: sclera anicteric Lungs: Normal chest expansion, clear breath sounds Heart: Normal rate and rhythm, no murmurs Abdomen: protuberant, soft, +BS- non-tender - spleen not appreciated but difficult due to body habitus Extremities: no edema Labs: CBC with differential reviewed from [facility] and integrated in assessment and plan. William Howell MD PhD MPH Associate Staff Hematologic Oncology and Blood Disorders Pager [phone] Date of service: 10/30/2022 documented in this encounter [facility] 11-01-2022 Note [facility] 10-30-2022 Note [facility] 10-30-2022 Note [facility] 10-30-2022 Nurse Note Additional intake questions: Has the patient had fever, nausea, vomiting, diarrhea, constipation, fatigue for > 1 week? Yes, constipation (day of last BM 10/29/22) and fatigue Does patient have any new or increased numbness or tingling of extremities? Yes, FEET Is patient interested in fertility information? No Does patient need any prescription refills? No Does patient have an advanced directive in place? No, Patient refused referral to Social Work or Resource Center documented in this encounter [facility] 10-16-2022 Note Attestation signed by Angus Key MD at 10/16/2022 9:00 PM I personally saw and examined the patient on the same date of service as resident/fellow Haile Gonzáles. I discussed the findings and therapeutic plan with the resident/fellow Haile Gonzáles. I agree with the documentation, except for any edits/updates below. Teaching Physician's Revisions: Angus Key Subjective Patient ID: Derrell Avitia is a 52 y.o. male. Chief Complaint: Pain of the Lower Back HPI 10/16/2022 Derrell is a 52-year-old male presenting with his to clinic as a new patient for discussion of chronic low back pain and right buttock pain. He has remote history of L4-L5 fusion approximately 15 years ago for right lower extremity radicular pain down to his foot. He reports this pain was improved postoperatively has not meaningfully recurred since. Reports over the last 6 to 9 months his low back pain is been worsening and now has some numbness along the anterior groin and pain in the posterior buttock area. He denies any trauma. Of note, he is currently undergoing chemotherapy for leukemia and has had multiple bone marrow aspirate from his posterior superior iliac crests. Objective Ortho Exam General: Alert and oriented, NAD Back: mild tenderness midline and paraspinals, Well-healed midline incision RLE: 5/5 hip flexor, 5/5 knee extensor, 5/5 ankle plantarflexion, 5/5 ankle dorsiflexion, 5/5 EHL. SILT L2-S1. 2+ Patellar reflex, 2+ Achilles reflex, 0 beats ankle clonus. LLE: 5/5 hip flexor, 5/5 knee extensor, 5/5 ankle plantarflexion, 5/5 ankle dorsiflexion, 5/5 EHL. SILT L2-S1. 2+ Patellar reflex, 2+ Achilles reflex, 0 beats ankle clonus. Image Results: X-ray lumbar spine obtained and personally interpreted, demonstrate stable appearing fusion at L4-L5 with severe adjacent segment disease at L5-S1 with obliteration of disc space and severe hypertrophy of facets at this level. Assessment/Plan Encounter Diagnoses: Lumbar spondylosis Orders Placed This Encounter CT lumbar spine wo IV contrast Derrell is a 52-year-old male with recent recurrence of low back pain in the setting of prior L4-L5 fusion. He has clear evidence of adjacent segment disease at L4-L5, but we would like to also investigate to ensure that his prior fusion is healed. We would like to begin with a CT of the lumbar spine to evaluate for degree of facet hypertrophy and healing effusion. He may also require an MRI of the lumbar spine to better evaluate for impingement of the canal and nerve at this level. Return to clinic after CT for review of these results and neck steps. Haile Gonzáles MD Orthopedic surgery resident, PGY 4 By using the attestations below, the signing clinician agrees that I have read and verify that the documentation has been personally reviewed by me and ensure that the documentation accurately reflects the encounter. Office Visit Attestation GC: I personally saw this patient on the day of the encounter, performed the perez portion(s) of the service and participated in the management and confirm the resident's documentation. Please note there may be an additional personal documentation from me. [facility] 10-15-2022 Note [facility] 10-15-2022 Instructions Kylee Dalal APRN.POLYSOMNOGRAPHY TECHNOLOGIST - 10/15/2022 2:06 PM EDT Plan Adjust: Lantus 35 units twice daily Humalog 03-18-18 with meals plus sliding scale If Blood Glucose (mg/dL) is <150 Give 0 units 151-200 Give 2 units 201-250 Give 4 units 251-300 Give 6 units 301-350 Give 8 units 351-400 Give 10 units >400 Give 12 units and notify provider Check your blood glucose 4 times per day using CGM. Glucose targets as: Fasting 80-130, before meals 100-130, and bedtime 100-150 mg/dL. Call the office with blood sugars less than 70 Follow up with me in 3 months documented in this encounter [facility] 10-15-2022 History of Present illness Narrative Endocrinology Follow Up PCP: Buffy Chung CNP [facility] History of Present Illness Derrell Avitia JR is a 52 year old male presents today for follow up of DM Type 2. Sugars remain elevated. His PCP increased Lantus from 50 units daily to 35 units BID last week. Improvement in BG during the day since this change, but still having hyperglycemia after dinner. Some mornings doesn't eat breakfast but will take sliding scale. Has a history of CML. He was in a trial for a chemotherapeutic agent which caused pancreatitis. He was hospitalized 3 times for pancreatitis around 2019 and was diagnosed with diabetes afterwards. Admits he does not follow a diabetic diet. Sleep/eating schedule isn't consistent. Date of Diagnosis: 2019 Last HbA1c: Hemoglobin A1C (%) Date Value 05/22/2020 9.9 09/07/2019 9.5 07/26/2019 6.8 03/23/2019 6.4 10/06/2018 7.6 Hemoglobin A1C (POCT) (%) Date Value 10/15/2022 8.5 07/15/2022 9.1 03/19/2022 9.6 Family history of diabetes includes mother and father. Complications Microvascular: mild DPN Macrovascular: denies Health Maintenance Topics Topic Date Due DIABETIC FOOT EXAM Never done DILATED RETINAL EXAM 05/05/2018 Prior DM Medications: Metformin- diarrhea Current DM Related Medications: Current Medications 10/15/2022 DIABETES THERAPIES Medication Dosage Pharm Subclass insulin glargine,hum.rec.anlog (LANTUS SUBCUTANEOUS) Inject 50 Units subcutaneously once daily. Insulin Analogs - Long Acting insulin lispro (HUMALOG KWIKPEN) 100 unit/mL Inject 10 units with breakfast and lunch and 14 units with dinner plus sliding scale (Max daily dose of 64 units daily) Insulin Analogs - Rapid Acting CARDIOVASCULAR Medication Dosage Pharm Subclass amLODIPine (NORVASC) 10 mg tablet Take 1 tablet by mouth once daily. Calcium Channel Blockers - Dihydropyridines pravastatin sodium (PRAVASTATIN ORAL) Take by mouth once daily. Antihyperlipidemic - HMG CoA Reductase Inhibitors (statins) OTHER Medication Dosage Pharm Subclass flash glucose scanning reader (FREESTYLE MARY ANN 2 READER) Check glucose 4 times daily Medical Supplies and DME - Glucose Monitoring Test Supplies flash glucose sensor (FREESTYLE MARY ANN 2 SENSOR) kit Check glucose 4 times daily Medical Supplies and DME - Glucose Monitoring Test Supplies fluocinonide (LIDEX) 0.05 % ointment Apply to affected areas of rash twice daily x 2 weeks, then once daily x 2 weeks. NOT for face, armpits, or groin Dermatological - Glucocorticoid ibuprofen (MOTRIN) 800 mg tablet NSAID Analgesics (DE SOUZA Non-Specific) - Propionic Acid Derivatives Insulin Syringe-Needle U-100 1 mL 25 x 1 syrg Use 1 syringe once daily to administer peg-interferon dose. Medical Supplies and DME - Insulin [place]-Syringes and Admin Supplies omega-3 acid ethyl esters (LOVAZA) 1 gram capsule Take 2 capsules by mouth twice daily. Antihyperlipidemic - Micro-3 Fatty Acid Type Physical Activity: Sedentary Diet: Does not follow a diabetic diet, but making improvements recently SMBG Frequency of Monitorin times daily Summary of Personal CGM Findings: Dates worn: 10/02/2022-10/15/2022 CGM Type: Mary Ann 1- CGM recording is adequate for interpretation. Worn 88% of time. 2- Average glucose is 243 mg/dl. 3. 16% time in range 70-180mg/dL 4. Coefficient of variation: 24.9% 5. Total frequency of hypoglycemia: 0% with BG<70 * Hypoglycemia patterns: none *Nocturnal hypoglycemia none noted 6- Hyperglycemic episodes 84% with BG>180 * Hyperglycemia Patterns: mainly after dinner/overnight Had a low of 40 a few weeks ago. Past History, Medications, Allergies PAST MEDICAL HISTORY Diagnosis Date CML (chronic myelocytic leukemia) (HCC) Hypertension PAST SURGICAL HISTORY Procedure Laterality Date ANES OPEN/SURG ARTHROSCOPIC PROC KNEE JOINT NOS right knee BACK SURGERY HX L4 and L5 infusion CHOLECYSTECTOMY TONSILLECTOMY HX ALLERGIES No Known Allergies No family history on file. Social History Tobacco Use Smoking status: Never Smokeless tobacco: Never Vaping Use Vaping Use: Never used Substance Use Topics Alcohol use: Yes Comment: socially Drug use: No Review of Systems GENERAL: No weight loss, malaise or fevers RESPIRATORY: Negative for cough, hemoptysis, wheezing, COPD, dyspnea or shortness of breath CARDIOVASCULAR: Negative for chest pain, leg swelling, CHF or palpitations GI: No nausea, vomiting, or diarrhea ENDOCRINE: Negative for cold or heat intolerance, polyuria, polydipsia and goiter NEUROLOGIC:Negative for focal numbness or weakness, headaches and dizziness or syncope. Physical examination BP 134/78 (BP Site: Right Arm, BP Position: Sitting, BP Cuff Size: Extra Large Adult) Pulse 72 Ht 179.1 cm (5' 10.5 ) Wt 124.3 kg (274 lb) BMI 38.76 kg/m General appearance: Well appearing, alert, in no acute distress, well-hydrated, well nourished. Skin: Skin color, texture, turgor normal, no suspicious rashes or lesions HEART: normal rate LUNGS: unlabored, normal respiratory rate EXTREMITIES No deformities, No skin discoloration and No edema NEURO: Speech normal, mental status intact, no tremor noted. Previous Laboratory Results LABS Glucose (mg/dL) Date Value 08/05/2022 174 05/13/2022 109 02/18/2022 134 06/11/2021 173 03/13/2021 159 12/22/2020 231 Potassium (mmol/L) Date Value 08/05/2022 4.4 06/11/2021 4.4 Sodium (mmol/L) Date Value 08/05/2022 136 05/13/2022 135 02/18/2022 136 06/11/2021 137 03/13/2021 135 12/22/2020 135 Chloride (mmol/L) Date Value 08/05/2022 101 05/13/2022 100 02/18/2022 100 06/11/2021 100 03/13/2021 100 12/22/2020 103 CO2 (mmol/L) Date Value 08/05/2022 27 05/13/2022 25 02/18/2022 27 06/11/2021 26 03/13/2021 23 12/22/2020 24 Creatinine (mg/dL) Date Value 08/05/2022 0.63 05/13/2022 0.59 02/18/2022 0.68 06/11/2021 0.71 03/13/2021 0.60 12/22/2020 0.60 BUN (mg/dL) Date Value 08/05/2022 15 05/13/2022 11 02/18/2022 11 06/11/2021 16 03/13/2021 14 12/22/2020 19 Anion Gap (mmol/L) Date Value 08/05/2022 8 05/13/2022 10 02/18/2022 9 06/11/2021 11 03/13/2021 12 12/22/2020 8 Calcium (mg/dL) Date Value 06/11/2021 9.9 03/13/2021 9.5 12/22/2020 9.2 Calcium, Total (mg/dL) Date Value 08/05/2022 9.4 05/13/2022 9.6 02/18/2022 9.3 eGFR- (no units) Date Value 06/11/2021 >60 03/13/2021 >60 12/22/2020 >60 eGFR-All Other Races (.) Date Value 06/11/2021 >60 03/13/2021 >60 12/22/2020 >60 Estimated Glomerular Filtration Rate (mL/min/1.73m ) Date Value 08/05/2022 114 05/13/2022 116 02/18/2022 111 ALT (U/L) Date Value 08/05/2022 34 05/13/2022 25 02/18/2022 24 06/11/2021 38 03/13/2021 38 12/22/2020 26 TSH Date Value Ref Range Status 04/07/2020 2.410 0.270 - 4.200 uU/mL Final 03/24/2020 2.230 0.270 - 4.200 uU/mL Final 03/06/2020 1.950 0.270 - 4.200 uU/mL Final Free T4 Date Value Ref Range Status 01/31/2020 1.9 (H) 0.9 - 1.7 ng/dL Final Impression/Recommendations IMPRESSION Derrell Aracelis Avitia JR is a 52 year old here for evaluation of DM Type 2 complicated by hypertension, hyperlipidemia, and peripheral neuropathy. HbA1c POC today is 8.5%. RECOMMENDATIONS: 1. Glycemic control: Target HbA1C is less than 7.0% per ADA guidelines. Patient is not at target. Since Lantus adjustment, trend for sugars normalizing midday with subsequent BG rises after dinner into overnight. Plan Adjust: Lantus 35 units twice daily Humalog 10-18 with meals plus sliding scale If Blood Glucose (mg/dL) is <150 Give 0 units 151-200 Give 2 units 201-250 Give 4 units 251-300 Give 6 units 301-350 Give 8 units 351-400 Give 10 units >400 Give 12 units and notify provider Check your blood glucose 4 times per day using CGM. Glucose targets as: Fasting 80-130, before meals 100-130, and bedtime 100-150 mg/dL. Call the office with blood sugars less than 70 I will check report in two weeks Follow up with me in 3 months Patient to continue to follow up with his PCP and with other consultants regarding his other medical problems. The patient was reminded to check their blood glucose as directed and to record the data in a logbook. This patient was advised to bring their logbook to each office visit. I recommended at least 150 minutes per week of moderate physical activity, such as walking and to reduce carbohydrates and overall caloric intake. 2. Hypertension/BP control: BP goal for patients with diabetes is 130/80. -- This patient is near target on current regimen. Now back on lisinopril. Managed by PCP. 3. Lipids: Target LDL cholesterol in patients with diabetes is less than 100, less than 70 if patient has overt CVD. Several studies have shown cardiovascular benefits of statin therapy in all patients with diabetes over age 40 with at least 1 CVD risk factor. Cholesterol, Total Date Value Ref Range Status 08/05/2022 236 (H) <200 mg/dL Final Comment: <200 mg/dL, Desirable 200-239 mg/dL, Borderline high >239 mg/dL, High Reference: 1. National Cholesterol Education Program ATP III Guideline At-A-Glance Quick Desk Reference: National Heart, Lung, and Blood [place]. National Institutes of Health. 2001: NIH Publication No. 01-3305. HDL Cholesterol Date Value Ref Range Status 05/13/2022 38 (L) >39 mg/dL Final Comment: 40-59 mg/dL, Acceptable >59 mg/dL, High: Negative risk factor for coronary heart disease <40 mg/dL, Low: Positive risk factor for coronary heart disease Reference: 1. National Cholesterol Education Program ATP III Guideline At-A-Glance Quick Desk Reference: National Heart, Lung, and Blood [place]. National Institutes of Health. 2001: NIH Publication No. 01-3305. LDL Cholesterol Date Value Ref Range Status 03/22/2022 151 (H) <100 mg/dL Final Comment: <100 mg/dL, Optimal 100-129 mg/dL, Near optimal/above optimal 130-159 mg/dL, Borderline high 160-189 mg/dL, High >189 mg/dL, Very high Secondary prevention optimal LDL Cholesterol levels are recommended to be < 70 mg/dL Triglyceride Date Value Ref Range Status 08/05/2022 183 (H) <150 mg/dL Final Comment: <150 mg/dL, Normal 150-199 mg/dL, Borderline high 200-499 mg/dL, High >499 mg/dL, Very high Reference: 1. National Cholesterol Education Program ATP III Guideline At-A-Glance Quick Desk Reference: National Heart, Lung, and Blood [place]. National Institutes of Health. 2001: [facility] Publication No. 01-3305. -- This patient is not on target. His statin was held during chemotherapy, now resumed by PCP. He reports dose was recently increased. -- Will defer to PCP who is managing. 4. Nephropathy screening: Annual measurement of urine albumin excretion is recommended in patients with diabetes. Albumin/Creat Ratio (mg/g) Date Value 03/22/2022 57 (H) Protein, Urine (no units) Date Value 08/05/2022 Negative 06/11/2021 2+ (A) Creatinine, Ur Random (UCRR) (mg/dL) Date Value 03/22/2022 43.8 -- This patient has microalbuminuria and is on ALDEN-I or ARB. 5. Ophthalmology: Annual dilated eye exams are recommended for patients with type 1 and type 2 diabetes. -- This patient is up to date with their annual eye exam and has no history of retinopathy. -- Last seen 11/2021 Any part of this document that has been added/copied & pasted from other documents has been reviewed for accuracy and updated as appropriate at the time of the patient encounter Kylee Dalal APRN.POLYSOMNOGRAPHY TECHNOLOGIST (Signed electronically to expedite mailing) documented in this encounter [facility] 09-06-2022 History of Present illness Narrative [facility] Department of Hematologic Oncology and Blood Disorders PATIENT NAME: Derrell Avitia [facility] NO: [id number] Date of service: 08/05/2022 Reason for visit: Follow up of CML on clinical trial Diagnosis: 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 (imatinib, dasatinib, nilotinib, bosutinib and ponatinib) Current Treatment - On a clinical trial - ACTG 1920 20-998 Title: A phase 1b study of the pharmacokinetics, safety and efficacy of orally administered [id number] in subjects with refractory chronic myeloid leukemia (CML). Day 1 was 06/19/2020. Cycle 5 scheduled to start on 10/13/2020 was delayed to elevated lipase levels. Today is day 28 of cycle 27 (or day 1 of cycle 28) today. He is being dosed at 30 mg every other day. Molecular monitoring with qRT-PCT for p210 bcr-abl transcripts since starting the clinical trial in June of 2020 - 05/29/2020 (prior to starting clinical trial) - >50%IS 09/15/2020 - 5.02% 12/22/2020 - 3.179% 06/15/2021 - 0.9714% (2 MR) 02/18/2022 - 0.5562% 05/13/2022 - 0.6007% (2.2 log reduction) 08/05/2022 - 0.5883% (2.23 log reduction) Impression: This is a 51 year old male with chronic phase CML who is here for follow up on clinical trial Recommendations: 1) Chronic Myeloid Leukemia (CML) in chronic phase with failure or intolerance to multiple TKI's (dasatinib, imatinib, nilotinib, bosutinib and ponatinib) - He started the CML clinical trial - ACTG 1920 20-998 Title: A phase 1b study of the pharmacokinetics, safety and efficacy of orally administered [id number] in subjects with refractory chronic myeloid 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 He has completed 27 cycles. He achieved early 3 month molecular response and five serial bone marrow biopsies done as part of the clinical trial protocol on 09/15/2020, 12/22/2020, 06/15/2021, 11/29/2021 and 05/16/2022 show him in CCyR. He has however not met the criteria for MMR despite being on this TKI for 25 months. Quantitative RT-PCR for p210 bcr-abl level from February of 2021 shows plateauing of molecular response at 0.6% (2.2-2.3 log reduction). Follow up as per clinical trial protocol. 2) Hypertension - Blood pressure on the higher side during clinic visits. On amlodipine at 10 mg once daily and follow up with his PCP. 3) Severe obstructive sleep apnea - Confirmed on polysomnography test done on 12/21/2017. He has been recommended CPAP but does not use it. 5) Psoriasiform dermatitis / pruritic papular erythematous rash on trunk - Has tried cetrizine and kenalog in the past. Can use the same. Unclear whether this I drug related as he has had a long history of intermittent outbreaks of rash. 6) Diabetes mellitus - Currently on 30 units of lantus (long acting insulin). Blood glucose control remains sub-optimal. As he is on an experimental drug for CML and with sub-optimal glucose control, I recommend a formal endocrinology evaluation for tighter blood glucose control and continued screening for diabetic neuropathy, retinopathy and renal disease. 7) History of chronic mild hyponatremia - Resolved. Likely study-drug related based on the temporality of onset coinciding with initiation of the study drug. 8) History of elevated lipase and history of pancreatitis while on ponatinib - Close monitoring. Most recent lipase levels from 08/05/2022 normal. 9) Hypercholesterolemia and hypertriglyceridemia - He has underlying risk factors for CAD and CVA. His cholesterol and triglycerides remains high. Recommended to resume omega-3 fatty acids. Check hepatic function panel a month from now. Clinical course - - He was diagnosed with CML in December of 2011 - A bone marrow biopsy 01/02/2012 showed a hypercellular bone marrow (90%) with markedly expanded myeloid compartment, relative erythroid hypoplasia and decreased megakaryocytes, presence of storage iron and no significant increase in reticulin fibrosis. CBC with differential from the same [place] [address], [place] [address], monocytosis (5700), 6700 lymphocytes, 500 basophils and thrombocytopenia with platelets at 330994. Metaphase cytogenetics showed presence of t(9;22) in all 20 metaphases. - Started on imatinib at 400 mg once daily on 02/12/2012. Rising bcr-abl transcript levels reported at 2.65% IS on 11/03/2012 (after 8 months of imatinib therapy). A bone marrow evaluation on 11/19/2012 (limited analysis as no core biopsy specimen was obtainable) showed a cellular bone marrow with trilineage hematopoiesis, 1% blasts, adequate megakaryocytes, presence of storage iron but no increase in ring sideroblasts. - Because of failure to achieve MMR and with rising transcript levels, he was switched to nilotinib 400 mg twice daily on 12/28/2012. - Development of rash on his face and arms and unspecified intolerance, he was switched to dasatinib 100 mg daily on 02/22/2013 after being on nilotinib for approximately 2 months. - On dasatinib therapy, bcr-abl transcript level dropped to 0.26 %IS on 11/29/2013 from 1.89 IS% on 02/26/2013 but thereafter the transcript levels started rising steadily reaching 1.61 IS% as of 11/11/2014. He never achieved a MMR on dasatinib despite being on it for 1 year and nine months. He was referred here for further evaluation in November of 2014. Kinase domain mutation analysis identified no mutations. - Rechallenged with nilotinib at 300 mg twice daily in Feb 2015. Serial measurements of p210 bcr-abl transcript levels were as follows on nilotinib - IS% was 1.34 in May of 2015, 2.16 in November of 2015 and 72.6 in February of 2016, consistent with failure of nilotinib. 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 - Initiated on bosutinib on Mar 2016 - initial response with drop in bcr-ab transcript levels to 3 in Jun 2016 but by Mar 2017 went up to 15.78. - He was enrolled on a clinical trial, [facility] 2915 15-875 A Randomized, Open-label, Phase 2 Trial of Ponatinib in Patients with Resistant Chronic Phase Chronic Myeloid Leukemia to Characterize the Efficacy and Safety of a Range of Doses on 05/21/2017 (day 1 of cycle 1). He was randomized to 45 mg daily. He has had three episodes of pancreatitis that required dose reduction or interruption. The last dose of the drug was 07/15/2019. He completed a total of 28 cycles on the clinical trial. Treatment course, dose modifications, response ( p210 bcr-abl transcripts levels by qRT-PCR), and complications while on ponatinib trial- 1) 04/24/2017 - 75.76% IS (prior to starting ponatinib at 45 mg on 05/21/2017) 2) 05/02/2017 - 70% IS 3) 08/12/2017 - 3.4% IS (~3 months of ponatinib at 45 mg) 4) 11/04/2017 - 1.2% IS ( ~ 6 months on ponatinib, dose reduced to 30 mg one daily from 45 mg on 09/20/2017 due to pancreatitis) 5) 01/27/2018 - 1.1% IS (on 30 mg of ponatinib since 09/20/2017) 6) 04/21/2018 - 0.85% IS (30 mg ponatinib) 7) 05/08/2018 - ponatinib dose reduced to 15 mg once daily per protocol 8) A bone marrow biopsy from 05/03/2019 showed normocellular marrow (50%) with trilineage hematopoiesis, decreased iron stores. Cytogenetics showed 46,XY,t(9;22)(q34;q11.2)[3]/46,XY[ 17], consistent with failure to achieve CCyR. BCR-ABL transcripts have been gradually increasing since decreased dose. Last level drawn on 03/2019 noted 9.5% IS. 9) 06/18/2019 - ponatinib dose increased to 30 mg daily 10) Hospitalized from 06/23/2019 to 06/25/2019 with pancreatitis (patient reports lipase elevated at 960). Ponatinib held on 06/23/2019 11) ED visit on 06/29/2019 for chest pain - CT chest negative for PE. Stress test was negative. 12) Resumed ponatinib at 30 mg on 07/09/2019 (held from 06/23/2019 to 07/08/2019) 13) He was hospitalized from 07/15/2019 to 07/19/2019 for pancreatitis - lipase elevated at 1966. Ponatinib was discontinued on 07/15/2019. - He underwent a bone marrow biopsy on 08/16/2019 that showed a normocellular marrow with trilineage hematopoiesis, 1% blasts and in complete cytogenetic remission (CCyR). 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 - A bone marrow transplant was deferred as long as it may be possible to maintain him in CCyR. He has a haploidentical brother and a well-matched unrelated donor. - He was started on pegylated interferon amber-2a on 12/14/2019 and discontinued on 01/27/2020 due to patient's poor compliance with monitoring. - His CML was being managed with hydroxyurea while waiting for enrollment in a clinical trial. - He was presented and consented for the clinical trial - [facility] 1920 20-998 Title: A phase 1b study of the pharmacokinetics, safety and efficacy of orally administered [id number] in subjects with refractory chronic myeloid leukemia (CML). He underwent a screening marrow on 05/03/2020 that showed CML in chronic phase (0% blasts) and identification of t(9;22) in all 20 metaphases. As the T315I was not checked as part of initial screening, his clinical trial date was deferred to 06/19/2020 to allow time for re-screening. BCR-ABL kinase domain mutation analysis from 05/29/2020 identified no mutations including T315I. Quantitative RT-PCT for p210 bcr-abl from 05/29/2021 showed levels at >50%IS. - He started the clinical trial on 06/19/2020.He underwent a follow up bone marrow biopsy on 09/15/2020 that showed complete cytogenetic remission. - He stopped taking the study drug on 10/03/2020 as he had misplaced it. Cycle 5 scheduled to start on 10/15/2020 was delayed due to elevated lipase. He was recently exposed to poison radha in September and broke out in rash around his left eye, face, trunk and chest for which he completed a short course of dexamethasone. - Five serial bone marrow biopsies done as part of the clinical trial protocol (09/15/2020, 12/22/2020, 06/15/2021, 11/29/2021 and 05/16/2022) shows him to be in CCyR. Review of system including interval history: Constitutional: No fever, anorexia or malaise. + chronic stable fatigue (rates it as 3-4/10 with 10 being the worst) Eyes: No change in vision, blurriness, diplopia, redness, or irritation. ENT: No mouth sores or bleeding gums; no hoarseness of voice. No epistaxis or other nasal problems. No changes in hearing, vertigo, or tinnitus. Respiratory: No coughing, wheezing, dyspnea at rest, exertional dyspnea, or hemoptysis. Cardiovascular: No anginal symptoms, palpitations, orthopnea, PND, syncopal events or presyncopal events. Gastrointestinal: No nausea, no vomiting, heartburn or acid reflux, constipation or abdominal cramping. Bowel habit is unchanged; and no melena or hematochezia. Genitourinary: No urgency, frequency, dysuria, or hematuria. Musculoskeletal: + stable chronic joint pains/arthritis. Unrestricted ambulation. Extremities: pain to the ganglion cyst on right wrist and pain to left hand Skin: no rash Neurological: No syncope, near-syncope, or seizures; no headaches or alteration in sensorium or motor strength. Psychiatric: Memory, short term & manager exchange intact; no disturbance in sleep pattern and denies symptoms of depression. Endocrine: Negative for temperature intolerance, unusual sweating, or symptoms of glucose intolerance. Hematologic/Lymphatic: Negative for prolonged bleeding, easy bruising, and swollen nodes. No lower extremity edema. Allergic/Immunologic: No itching, or jaundice. Past medical and surgical history: - Chronic Phase CML - Hypertension - ADHD - Gastritis - Chronic diarrhea preceding his dx of CML and prior to starting imatinib - Morbid obesity - Psoriasiform dermatitis - Cholecystectomy - Tonsillectomy - Back Surgery - Right knee arthroscopy - chronic pruritis rash for > 10 years Current medication: Reviewed from [facility] and integrated in assessment and plan. Social History: He is . 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 He does not smoke cigarettes and has not used any illicit drugs. He drinks alcoholic beverages occasionally. Family History: Father has CAD and had cardiac surgery, he also has DM. Still living Mother has DM. He has one brother is doing well. He has 2 children, both are doing well. He denies any prior exposure to toxic chemicals, radiation therapy, chemotherapy. Physical Examination: Vitals: BP 170/85 Pulse 62 Temp 36.7 C (98.1 F) Resp 16 Ht 177.8 cm (5' 10 ) Wt 126.1 kg (278 lb) SpO2 97% BMI 39.89 kg/m ECOG - 1 Gen: Awake, alert, oriented x 3, NAD, accompanied by his Skin: Scattered erythematous areas with papular rash on trunk (front, back and sides) - continues to improve Eyes: sclera anicteric Lungs: Normal chest expansion, clear breath sounds Heart: Normal rate and rhythm, no murmurs Abdomen: protuberant, soft, +BS- non-tender - spleen not appreciated but difficult due to body habitus Extremities: no edema Labs: CBC with differential reviewed from [facility] and integrated in assessment and plan. William Howell MD PhD MPH Associate Staff Hematologic Oncology and Blood Disorders Pager [phone] Date of service: 08/05/2022 Additional intake questions: Has the patient had fever, nausea, vomiting, diarrhea, constipation, fatigue for > 1 week? No Does the patient have a decreased appetite? No Does patient want to see a Car Tracer? No (yes to any of above refer patient to schedulers for dietitian appointment) ) Does patient have any new or increased numbness or tingling of extremities? No Is patient interested in fertility information? No Does patient need any prescription refills? No Does patient have an advanced directive in place? No, Patient referred to [facility] documented in this encounter [facility] 08-15-2022 Miscellaneous Notes Spoke to Pt scheduled near requested date 11/01 800am rm 216 RADIOLOGIST REQUEST / APPROVAL FORM STAFF RADIOLOGIST:Fernando Acuña MD PROCEDURE TO BE DONE UNDER: CT PROCEDURE REQUESTED: CORE Requested PROCEDURE: Approved TIME SLOT NEEDED: 1 Hour NOTES: CT guided bone marrow biopsy/aspiration SPECIAL LABS/ PROCESSING: not needed Pre-procedure labs: CBC: not needed INR: not needed COVID: not needed SIR Bleeding risk category for this procedure: low risk. Reference from [facility] [employer]: [email or web address] STAFF SIGNATURE: Jonathan Brasher MD DATE: August 14, 2022 TIME: 4:51 PM BX. COORDINATOR INFORMATION LAB RESULTS: PT INR (no units) Date Value 06/11/2021 1.0 INR (no units) Date Value 08/05/2022 1.0 APTT (sec) Date Value 08/05/2022 25.7 06/11/2021 25.5 Platelet Count (k/uL) Date Value 08/05/2022 313 06/11/2021 275 Current Outpatient Medications Medication Sig insulin lispro (HUMALOG KWIKPEN) 100 unit/mL Inject 10 units with breakfast and lunch and 14 units with dinner plus sliding scale (Max daily dose of 64 units daily) amLODIPine (NORVASC) 10 mg tablet Take 1 tablet by mouth once daily. flash glucose sensor (InnovisSTYLE MARY ANN 2 SENSOR) kit Check glucose 4 times daily flash glucose scanning reader (FREESTYLE MARY ANN 2 READER) Check glucose 4 times daily pravastatin sodium (PRAVASTATIN ORAL) Take by mouth once daily. fluocinonide (LIDEX) 0.05 % ointment Apply to affected areas of rash twice daily x 2 weeks, then once daily x 2 weeks. NOT for face, armpits, or groin omega-3 acid ethyl esters (LOVAZA) 1 gram capsule Take 2 capsules by mouth twice daily. insulin glargine,hum.rec.anlog (LANTUS SUBCUTANEOUS) Inject 50 Units subcutaneously once daily. Insulin Syringe-Needle U-100 1 mL 25 x 1 syrg Use 1 syringe once daily to administer peg-interferon dose. ibuprofen (MOTRIN) 800 mg tablet Current Facility-Administered Medications Medication Dose Route Frequency perflutren lipid microspheres 1.3 mL in NaCl (PF) 0.9% 10 mL injection (DEFINITY) INTRAVENOUS DIRECTED PRN sodium chloride 0.9 % (flush) 10 mL (BD POSIFLUSH) 10 mL INTRAVENOUS DIRECTED PRN perflutren lipid microspheres 1.3 mL in NaCl (PF) 0.9% 10 mL injection (DEFINITY) INTRAVENOUS DIRECTED PRN sodium chloride 0.9 % (flush) 10 mL (BD POSIFLUSH) 10 mL INTRAVENOUS DIRECTED PRN perflutren lipid microspheres 1.3 mL in NaCl (PF) 0.9% 10 mL injection (DEFINITY) INTRAVENOUS DIRECTED PRN sodium chloride 0.9 % (flush) 10 mL (BD POSIFLUSH) 10 mL INTRAVENOUS DIRECTED PRN perflutren lipid microspheres 1.3 mL in NaCl (PF) 0.9% 10 mL injection (DEFINITY) INTRAVENOUS DIRECTED PRN sodium chloride 0.9 % (flush) 10 mL (BD POSIFLUSH) 10 mL INTRAVENOUS DIRECTED PRN sodium chloride 0.9 % (flush) 10 mL (BD POSIFLUSH) 10 mL INTRAVENOUS DIRECTED PRN ALLERGIES No Known Allergies FILMS SENT TO WORKSTATION: GUIDELINES FOR HOLDING ANTI-PLATELET AND ANTI- COAGULATION THERAPY: none on file NURSE SIGNATURE: Emily Anthony LPN DATE: August 14, 2022 TIME: 8:35 AM STAFF-INITIATED RADIOLOGY BIOPSY / ASPIRATION / DRAIN REQUEST FORM Date: August 06, 2022 Time: 2:17 PM PATIENT CONTACT INFORMATION: Best way to reach patient [phone] SCHEDULING: Date: 10/28/2022 (Specific requests must be greater than 10 business days from the date of request) RADIOLOGY SERVICE GROUP (Abdominal / Thoracic / MSK / Neuro): Bone- Biopsy Site: bone marrow aspirate and biopsy SPECIFICS OF THE REQUEST (Please be as detailed as possible): BONE (Specify) bone marrow aspirate / Biopsy Type: bone marrow Core Biopsy SPECIAL REQUESTS: TISSUE SAMPLE, LABWORK: N/A MEDICAL DIAGNOSIS: CML (i.e. Known primary cancer or suspected diagnosis) IMAGING STUDY AND DATE THAT IS THE BASIS OF THE REQUEST: per study ACTG 1920 (Note: Requests for random organ biopsies, specifically liver and kidney random biopsies do not need imaging.) IMAGING: n/a (If the imaging was obtained outside the [facility] system, PLEASE upload for review prior to approval.) Note to all persons requesting biopsies: All biopsy requests will be scheduled as quickly as possible, based on the clinical urgency, availability of appointment times, the need to hold anti-thrombolytic therapy (aspirin and other blood thinners) and the patient s schedule, including the need for an available uke driver. If a percutaneous biopsy or drainage is not felt to be safe or an alternative method for establishing a diagnosis is possible, this will be discussed directly with the requesting physician. documented in this encounter [facility] 08-05-2022 History of Present illness Narrative Summary: ACTG 1920/20-8 Cycle 27 day 28 visit ACTG 1920 A phase 1b study of the pharmacokinetics, safety and efficacy of orally administered [id number] in subjects with refractory chronic myeloid leukemia (CML). Patient is here for screening for ACTG 1920 / IRB . 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 06/19/2020 Patient met all inclusion and exclusion criteria and deemed eligible to participate on the study by the sponsor 08/05/2022 Cycle 27 day 28 Subject #: [id number] Patient met with research team, pleasant and engaged in conversation. Patient denies any side effects to report. Pt went to ED for dizziness, nausea on 07/17/2021. He also had pain to the ganglion cyst on right wrist and pain to left hand. Pt was prescribed Avalon but he never got it filled. He had one dose in the ED. Dr. Howell reviewed all labs and AE's. Subsequent Visit August 05, 2022: Patient does continue to meet parameters to proceed with therapy ECHO: 57% ejection fraction BMBx: N/A EKG: QTcF 412, 404, 418 ms PE: ECO Ankle-brachial index: 0950 Left brachial 155/89 Left ankle 195/96 VS: completed PAST MEDICAL HISTORY Diagnosis Date Status CML (chronic myelocytic leukemia) (HCC) 12/2011 Active chronic phase not controlled Hypertension 09/14/2015 Active controlled without medication ADHD >10 years Active controlled without medication Gastritis Not active Chronic diarrhea Not active Morbid obesity >10 years Active back pain >10 years Active controlled with medication chronic pruritic rash >10 years Active intermittently controlled without medication moderate upper septal asymmetric left ventricular hypertrophy 05/05/2017 Present floaters in both eyes (eye exam 05/05) Active no medication or treatment Diabetes 12/2019 Active controlled with medication Rash 11/2019 Active uncontrolled,medication to start 05/29/2020 PAST SURGICAL HISTORY Procedure Laterality Date BACK SURGERY HX Prior to 03/2012 L4 and L5 infusion SC ANESTH,KNEE JOINT; NOS right Prior to 03/2012Prior to 03/2012 right knee REMOVAL GALLBLADDER Prior to 03/2012 TONSILLECTOMY HX Prior to 03/2012 Social history: Patient has been for 26 years with adult children. Patient denies illegal drug use and drinks alcohol very rarely. Patient is a non-smoker. Transfusion History: None History of Prior Medical Treatments for CML: Gleevec 02/12/2012 - 11/2012 Nilotinib 12/2012 - 02/2013 Dasatinib 02/2013 - 12/2014 Nilotinib 12/2014 -- 03/2016 Bosutinib 03/2016 - 05/02/2017 [facility] 2915 15-875 trial of Ponatinib 05/21/2017 - 07/15/2019 pegylated interferon amber-2a on 12/14/2019 - 01/27/2020 BCR-ABL mutation history: bcr-abl transcript levels reported at 2.65% IS on 11/03/2012 bcr-abl transcript levels reported 1.89% IS on 02/26/2013 bcr-abl transcript levels reported 0.26% IS on 11/29/2013 bcr-abl transcript levels reported 1.34% IS in 05/2015 2.16 in November of 2015 72.6 in February of 2016 bcr-ab transcript levels to 3 in Jun went up to 15.78. 04/24/2017 - 75.76% IS (prior to starting ponatinib at 45 mg on 05/21/2017) 05/02/2017 - 70% IS 08/12/2017 - 3.4% IS (~3 months of ponatinib at 45 mg) 11/04/2017 - 1.2% IS 01/27/2018 - 1.1% IS 04/21/2018 - 0.85% IS (30 mg ponatinib) BCR-ABL transcripts have been gradually increasing since decreased dose of Ponatinib. Last level drawn on 03/2019 noted 9.5% IS. Medications: NKA Medication Dose Start Date Stop Date Comments Ibuprofen 800 mg once daily as needed per patient 10/2015 For general body aches Insulin Lantus 50 units daily Per patient 05/2022 For diabetes Hydrea 500 mg 2 capsules by mouth once daily 12/2019 ~ 04/17/2020 For leukocytosis Hydrea 500 mg capsules orally twice a day 05/01/2020 05/11/2020 increased to 05/11/2020 For leukocytosis Hydrea (2) 500 mg capsules orally 2x/day 05/11/2020 05/17/2020 For leukocytosis Hydrea (2) 500 mg capsules orally 3x/day 05/17/2020 05/22/2020 For leukocytosis Hydrea Tapering dose: (2) 500 mg capsules orally 2x/day for 3 days. Then (2) 500 mg capsules orally once a day for 2 days then stop. 05/22/2020 05/26/2020 For leukocytosis Kenalog cream Apply 2x/day to affected areas. 05/29/2020 For rash Hydrea (2) 500 mg capsules orally 2x/day 06/12/2020 06/16/2020 For leukocytosis Hydrea (2) 500 mg capsules orally 3x/day 06/16/2020 06/17/2020 For leukocytosis Lovaza (2) 1gm capsules orally 2x/day 06/22/2020 on hold restarted 09/03/2021 Hypertriglyceridemia Advil 400 mg orally every 6 hours as needed 07/10/2020 For headache Decadron 4 mg orally 10/04/2020 10/06/2020 For poison radha Lidex ointment 0.05% Apply twice daily for 2 weeks, then once daily for 2 weeks For rash. Do not apply to face, armpits or groin Colace 100 mg orally once a day as needed 06/07/2021 Constipation Norvasc 10 mg orally once a day 05/13/2022 Blood pressure Lispro (insulin) 10 units sq at breakfast and lunch, 14 units sq at dinner 05/2022 Diabetes Avalon 5/325 mg 1 tab PO x 1 05/16/2022 05/16/2022 Hand pain Zofran 4 mg 4 mg IV x 1 05/16/2022 05/16/2022 Nausea LR 1L 1L IV over one hr x1 05/16/2022 05/16/2022 Dizziness Sliding scale insulin with Humalog If Blood Glucose (mg/dL) is <150 Give 0 units 151-200 Give 2 unit 201-250 Give 4 units 251-300 Give 6 units 301-350 Give 8 units 351-400 Give 10 units >400 Give 12 units and notify provider 07/15/2022 DM Toxicities: CTCAE V. 5 SCREENING all predate therapy, are chronic conditions and will not be actively followed unless they worsen during the clinical trial. Fasting labs Day -28 06/05/2020 Leukocytosis Grade 3 UNRELATED Start date: 05/01/2020. Resolved: ongoing. Drugs used to treat: yes. Outcome: Still present. Hypertension:Stage Prehypertension Grade 1 UNRELATED Start date:05/01/2020. Resolved: ongoing. Drugs used to treat: none. Outcome: Still present. Hyperglycemia Grade 1 UNRELATED Start date: 05/01/2020. Resolved: ongoing. Drugs used to treat: none. Outcome: Still present Hypertriglyceridemia Grade 1 UNRELATED Start date: 05/22/2020. Resolved: ongoing. Drugs used to treat: none. Outcome: Still present. Rash on trunk of body Grade 1 UNRELATED Start date: 05/29/2020. Resolved: ongoing. Drugs used to treat: yes. Outcome: Still present. Fasting labs Day -7 06/12/2020 Aspartate aminotransferase increased Grade 1 UNRELATED Start date: 06/12/2020. Resolved: ongoing. Drugs used to treat: none. Outcome: Still present. Hyperglycemia Grade 2 UNRELATED Start date: 06/05/2020. Resolved: ongoing. Drugs used to treat:yes. Outcome: Still present. Hypertriglyceridemia Grade 2 UNRELATED Start date: 06/12/2020. Resolved: ongoing. Drugs used to treat: none. Outcome: Still present. Fasting labs 08/05/2022: CTCAE v.5 Alkaline phosphatase Grade 1 Unrelated (prior to drug)Start date: 06/19/2020. Resolved: ongoing. Drugs used to treat:no Outcome:present intermittently. Hyponatremia Grade 1 Unrelated (prior to drug) Start date 06/19/2020 Resolved:ongoing.Drugs used to treat: no. Outcome: present intermittently Hypertension Grade 1 Unrelated Start date 08/14/2020 Resolved:ongoing. Drugs used to treat:no. Outcome: still present. Hypertension Grade 2 Unrelated Start date 06/11/2021 Resolved:ongoing. Drugs used to treat:yes 05/13/2022 Outcome: monitor. Cholesterol high Grade 1 Unrelated Start date: 10/13/2020esolved: ongoing. Drugs used to treat: none. Outcome: still present. Constipation Grade 1 Unrelated Start date:06/07/2021.Resolved:ongoing. Drugs used to treat: yes. Outcome: present intermittently. Fatigue Grade 1 Unrelated Start date:06/07/2021.Resolved:ongoing. Drugs used to treat: no. Outcome: present intermittently. Lipase Grade 1 Possibly related Start date:09/03/2021 Resolved: ongoing Drugs used to treat: no. Outcome:present Hypoalbuminemia Grade 1 Unrelated Start date:11/26/2021 Resolved: 02/18/2022 Drugs used to treat: no. Outcome: resolved Right knee pain Grade 1 Unrelated Start date: Resolved: ongoing Drugs used to treat: no. Outcome: present Nausea Grade 1. UNRELATED. Start date: 05/16/2022. Resolve date: 05/16/2022. Drugs to treat: zofran. Outcome: resolved Dizziness Grade 1. UNRELATED. Start date: 05/16/2022. Resolve date: 05/16/2022. Drugs to treat: LR. Outcome: resolved Right wrist ganglion cyst Grade 1. UNRELATED. Start date: 04/2022. Resolve date: ongoing. Drugs to treat: norco. Outcome: still present, improving Resolved AE's: Hypertriglyceridemia Grade 3 Unrelated(prior to drug) Start date: 06/19/2020. Resolved: 06/26/2020 Drugs used to treat: none. Outcome resolved to baseline day -28 Amylase Grade 1 Possibly related Start date 06/26/20 Resolved:07/03/2020. Drugs used to treat: no. Outcome: resolved. Lipase Grade 3 Possibly related Start date 06/26/20 Resolved:07/03/2020.Drugs used to treat: no. Outcome: resolved. Lipase Grade 1 Possibly related Start date:07/13/2020 Resolved: 07/17/2020 Drugs used to treat: no. Outcome:resolved. Constipation Grade 1 Unrelated Startdate:06/22/20.Resolved:06/23/19. Drugs used to treat: no. Outcome: resolved. Hypoalbuminemia Grade 1 Unrelated Startdate:06/22/20.Resolved:. Drugs used to treat: no. Outcome: resolved. Platelet count decreased Grade 1 Possibly related Startdate:07/13/20.Resolved:. Drugs used to treat: no. Outcome: resolved. Headache Grade 1 Possibly related Startdate:07/10/2020.Resolved:08/15/19. Drugs used to treat:yes. Outcome: resolved. Lipase Grade 3 Possibly related Start date 08/03/2020 Resolved:08/14/2020.Drugs used to treat: no. Outcome: resolved. Amylase Grade 1 Possibly related Start date 08/03/2020 Resolved:08/14/2020.Drugs used to treat: no. Outcome: resolved. Heart palpitation Grade 1 Unrelated Start date: 08/25/2020. Resolved:08/27/2020. Drugs used to treat:no. Outcome: resolved. Rash Grade 1 Unrelated Start date: 10/04/2020 Resolved:10/06/2020. Drugs used to treat: yes. Outcome:resolved Hyperglycemia Grade 3 Unrelated Start date: 10/13/2020 Resolved: 10/20/2020 Drugs used to treat:yes. Outcome:resolved to Grade 2. Hyponatremia Grade 1 Unrelated (prior to drug) Start date 06/19/2020 Resolved:10/20/2020.Drugs used to treat: no. Outcome: Resolved. Alkaline phosphatase Grade 1 Unrelated (prior to drug)Start date: 06/19/2020. Resolved: 10/27/2020. Drugs used to treat:no Outcome:Resolved. Alanine aminotransferase increased Grade 1 Unrelated Start date: 10/13/2020esolved: 10/20/2020. Drugs used to treat: none. Outcome: Resolved. Lipase increased Grade 1 Possibly related Start date: 10/13/2020esolved: 10/27/2020. Drugs used to treat: none. Outcome: Resolved to normal. Lipase increased Grade 2 Possibly related Start date: 10/20/2020esolved:10/27/2020. Drugs used to treat: none. Outcome: Resolved to normal. Hypertriglyceridemia Grade 3 Possibly related Start date: 10/13/2020. Resolved:10/20/2020 Drugs used to treat: none. Outcome:Resolved to Grade 2. Hypertriglyceridemia Grade 2 Possibly related Start date: 10/20/2020. Resolved:10/27/2020 Drugs used to treat: none. Outcome:Resolved to grade 1 screening. Hypoalbuminemia Grade 1 Unrelated Start date: 10/20/2020. Resolved:11/23/2020 Drugs used to treat: none. Outcome: resolved. Rash Possibly related bilateral lower abdomen, left upper chest, behind both knees, and right scapula area. Grade 1 Unrelated Start date: 11/07/2020 Resolved:02/07/2021. Drugs used to treat:yes. Outcome: resolved. Patients last dose of study drug was 08/04/2022. Next dose due on 08/06/2022 Re-educated patient on how to complete the medication diary. Educated patient how to take the drug and how to transport and store drug going forward it can be stored at room temperature. Instructed patient that he will need to return drug and all bottles/unused medication at his next visit. Patient has 3 prong medal folder with drug information, contact information for research team, after hours number. Patient verbalized understanding of all information provided. Patient returned diary from previous visit completed. New diary given. Patient returned: 3 bottles, 2 empty and 1 bottle with 54 pills. The count is accurate. Patient was given drug: yes. 3 bottles of drug. 60 pills per bottle of 10 mg pills. To be dosed with 30 mg of HQP on 08/06/2022 every other day. Lot# [id number] Patient aware next appointment is 10/30/2022 and he reports [facility] has [facility]. Patient presented today to participate on the trial ACTG 1920 / IRB [id number]. Patient signed consent previously on 05/29/2020 with nurse present prior to having ANY procedures done. Copy given to the patient. Patient had labs drawn, and then met with the clinical team. Patient understands that he must call nurse or MD prior to taking any new medications as well as to stopping any medications. Patient also understands to call nurse/MD should she have any new medical issues arise and/or goes to the hospital for any reason. Patient is aware to monitor for fevers and to call and/or go to the nearest emergency room for temperatures of 100.4 or greater. 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 Patient understands that this participation is voluntary and that he may withdraw at any time during the trial. ОЛЬГА Cabrera, RN documented in this encounter [facility] 07-30-2022 History of Present illness Narrative Images from the original note were not included. DIABETES SELF-MANAGEMENT EDUCATION AND SUPPORT Location: [place] Type of visit: In person individual Types of DSMES: Initial/Comprehensive (add to or update ADA spreadsheet) PATIENT'S MAIN CONCERN TODAY: none Support person present for education today: spouse Cognitive ability: Alert and oriented Motivation to learn: Interested Learning barriers identified by educator: none Method of instruction: written and verbal INTERVENTIONS/TOPICS COVERED: -Diabetes Pathophysiology: diabetes disease process, role of insulin in the body, role of glucose in the body, insulin resistance, relationship of glucose and insulin in the body, hepatic glucose release, Type 2 diabetes risk factors, and progression of Type 2 -Monitoring: BG targets -Healthy Eating: impact of carbs on BG, Plate Method, basic carb counting, foods with carbs, portion sizes, fiber, reading food labels, carbs/protein/fat contribution to calories, and healthy heart options -Medications: site selection/rotation, sharps disposal, basal insulin, and prandial insulin -Physical Activity: benefits of exercise and impact of exercise on BG -Acute Complications: hypoglycemia s/sx/tx and hyperglycemia s/sx/tx -Chronic Complications: importance of annual eye exams, foot care, skin care, LT complications, and importance of BG control to reduce risks -Healthy Coping and Support: impact of stress on BG DIABETES ASSESSMENT: Referring Physician: Kylee Dalal Previous Diabetes Education? No What are you hoping to gain from this visit? asked/not answered In your words, what is diabetes? Pancreas not working correctly What concerns you about having diabetes? Going blind Diabetes History: Type of Diabetes: Type 2 What year were you diagnosed? 2019 Does anyone in your family have diabetes? yes mother father and grandfather How do you learn best? 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 never How often does someone help you read your pill bottles? never How often does someone have to help you take care of your diabetes? never Major stressors:asked/not answered How do you manage stress? asked/not answered Do any of the following things get in the way of managing your diabetes? Asked/not answered Health History: Most recent eye exam: due and encouraged to schedule apt Most recent dental exam:Asked/not answered Most recent foot exam:due and encouraged to schedule apt How often do you inspect your feet at home? Asked/Not answered Do you use tobacco? No Do you use alcohol? Yes, How much? socially In the past 12 months have you had any: Hospital Admissions: No ER Visits: No Primary Care Visits: Yes, Number of Times? 3 What are your general feelings about you overall health? Good Medical Issues/Complications: HTN, High Cholesterol, and Neuropathy PAST MEDICAL HISTORY Diagnosis Date CML (chronic myelocytic leukemia) (HCC) Hypertension Most recent A1C Lab Results Component Value Date HBA1C 9.1 07/15/2022 HBA1C 9.6 03/19/2022 HBA1C 9.9 05/22/2020 HBA1C 9.5 09/07/2019 HBA1C 6.8 07/26/2019 Physical Activity: Do you do a regular exercise? No, thinking about starting work has gym Sick Days: How do you manage your diabetes when you are sick? Asked/not answered Sleep: Do you get at least 7 hrs of sleep most nights? no Current Outpatient Medications Medication Sig amLODIPine (NORVASC) 10 mg tablet Take 1 tablet by mouth once daily. insulin lispro (HUMALOG KWIKPEN) 100 unit/mL Inject 8 Units subcutaneously three times daily before meals. flash glucose sensor (FREESTYLE MARY ANN 2 SENSOR) kit Check glucose 4 times daily flash glucose scanning reader (FREESTYLE MARY ANN 2 READER) Check glucose 4 times daily pravastatin sodium (PRAVASTATIN ORAL) Take by mouth once daily. fluocinonide (LIDEX) 0.05 % ointment Apply to affected areas of rash twice daily x 2 weeks, then once daily x 2 weeks. NOT for face, armpits, or groin omega-3 acid ethyl esters (LOVAZA) 1 gram capsule Take 2 capsules by mouth twice daily. insulin glargine,hum.rec.anlog (LANTUS SUBCUTANEOUS) Inject 50 Units subcutaneously once daily. Insulin Syringe-Needle U-100 1 mL 25 x 1 syrg Use 1 syringe once daily to administer peg-interferon dose. ibuprofen (MOTRIN) 800 mg tablet Current Facility-Administered Medications Medication Dose Route Frequency perflutren lipid microspheres 1.3 mL in NaCl (PF) 0.9% 10 mL injection (DEFINITY) INTRAVENOUS DIRECTED PRN sodium chloride 0.9 % (flush) 10 mL (BD POSIFLUSH) 10 mL INTRAVENOUS DIRECTED PRN perflutren lipid microspheres 1.3 mL in NaCl (PF) 0.9% 10 mL injection (DEFINITY) INTRAVENOUS DIRECTED PRN sodium chloride 0.9 % (flush) 10 mL (BD POSIFLUSH) 10 mL INTRAVENOUS DIRECTED PRN perflutren lipid microspheres 1.3 mL in NaCl (PF) 0.9% 10 mL injection (DEFINITY) INTRAVENOUS DIRECTED PRN sodium chloride 0.9 % (flush) 10 mL (BD POSIFLUSH) 10 mL INTRAVENOUS DIRECTED PRN perflutren lipid microspheres 1.3 mL in NaCl (PF) 0.9% 10 mL injection (DEFINITY) INTRAVENOUS DIRECTED PRN sodium chloride 0.9 % (flush) 10 mL (BD POSIFLUSH) 10 mL INTRAVENOUS DIRECTED PRN sodium chloride 0.9 % (flush) 10 mL (BD POSIFLUSH) 10 mL INTRAVENOUS DIRECTED PRN Medications for Diabetes: Name of Medication Dose When taken How often missed lantus humalog Injections Technique: Do you take insulin or a medication you inject for your diabetes? Yes;then if so answer the following questions: How do you inject your medicine Pen Where are your injections done? Stomach/abdomen Who prepares your syringes, pen, or pump infusion set? Self Who gives you injections or changes your pump sites? Me Where do you throw away your needles? Trash Blood Sugar Monitoring: Do you have a blood sugar monitor? No Freestyle mary ann 2 Management of Low Blood Sugar: What has been your lowest blood sugar in the last month? 120 What are your symptoms of lows?Shaky, Sweaty, and Dizzy/lightheaded How do you treat lows? asked/not answered Do you drive? yes Management of High Blood Sugar: What has been you highest blood sugar in the last month? 350 What are your symptoms of highs? Thirsty, Tired, Frequent urination, and Other vision How do you treat your highs? asked/not answered Meal Planning: Are you currently following any meal plan? None Who does the cooking in your house? Asked/not answered Who does the grocery shopping? Asked/not answered How often do you eat out? asked/not answered How many meals do you eat per day? Asked/not answered Which meals do you tend to skip? Asked/not answered Beverages: asked/not answered Reproductive Status (Females): Have you reached menopause? N/A (male patient) EDUCATION HANDOUTS: Healthy You: Survival Skills LEARNING RESPONSE: Diabetes pathophysiology: Demonstrated understanding/competency today or at previous visit Healthy eating: Demonstrated understanding/competency today or at previous visit Being active: Demonstrated understanding/competency today or at previous visit Taking medications: Demonstrated understanding/competency today or at previous visit Monitoring glucose: Demonstrated understanding/competency today or at previous visit Acute complications: Demonstrated understanding/competency today or at previous visit Chronic complications: Demonstrated understanding/competency today or at previous visit Healthy coping: Demonstrated understanding/competency today or at previous visit Diabetes distress and support: Demonstrated understanding/competency today or at previous visit PATIENT SELECTED THE FOLLOWING GOALS: -Pt declined POSSIBLE FUTURE TOPICS: 1. The following topics were not assessed due to time limitations, but should be assessed at the next visit: all areas were assessed today or within the last 12 months. 2. The following topics should be taught or reinforced at the next visit: healthy eating . DIABETES EDUCATION PLAN: Individual follow-up declined Time Spent (Minutes): 60 This visit note will be communicated to the healthcare provider via access to shared medical record. SIGNATURE: Bing Pedro RN PATIENT NAME: Derrell Avitia JR DATE: July 30, 2022 TIME: 10:13 AM PAGER: documented in this encounter [facility] 07-26-2022 History of Present illness Narrative IRB# [id number] /[facility]# [id number] : Study Description A Randomized, Open-label, Phase 2 Trial of Ponatinib in Patients with Resistant Chronic Phase Chronic Myeloid Leukemia to Characterize the Efficacy and Safety of a Range of Doses Derrell Avitia JR [id number] Survival/Detention Follow Up Call Detention Follow Up performed every 12 Weeks +- 2 weeks Chart Review for survival performed Raheem Santos, Research Coordinator . Patient was last seen in clinic on 07/15/2022 by Clare Dalal APRN.POLYSOMNOGRAPHY TECHNOLOGIST. Next survival f/u due 10/07/2022. Raheem Santos, Research Coordinator documented in this encounter [facility] 07-15-2022 Instructions Kylee Dalal APRN.POLYSOMNOGRAPHY TECHNOLOGIST - 07/15/2022 4:05 PM EST Plan Continue: Lantus 50 units daily Adjust: Humalog 10 units three times daily with meals plus sliding scale If Blood Glucose (mg/dL) is <150 Give 0 units 151-200 Give 2 unit 201-250 Give 4 units 251-300 Give 6 units 301-350 Give 8 units 351-400 Give 10 units >400 Give 12 units and notify provider Check your blood glucose 4 times per day and record data in logbook and bring to each visit Glucose targets as: Fasting 80-130, before meals 100-130, and bedtime 100-150 mg/dL. Call the office with blood sugars less than 70 See CDE Follow up with me in 3 months documented in this encounter [facility] 07-15-2022 History of Present illness Narrative Endocrinology Follow Up History of Present Illness Derrell Avitia JR is a 51 year old male presents today for evaluation of DM Type 2. Since last OV we started mealtime insulin. He has been using Mary Ann. Sugars remain elevated. Having some neuropathy- doesn't wish to start any treatment for this as it is mild. Has a history of CML. Denies any steroid therapy with chemo. He was in a trial for a chemotherapeutic agent which caused pancreatitis. He was hospitalized 3 times for pancreatitis around 2019 and was diagnosed with diabetes afterwards. Was on metformin for a period of time but had diarrhea with this. Admits he does not follow a diabetic diet. Sleep/eating schedule isn't consistent. Date of Diagnosis: 2019 Last HbA1c: Hemoglobin A1C (%) Date Value 05/22/2020 9.9 09/07/2019 9.5 07/26/2019 6.8 03/23/2019 6.4 10/06/2018 7.6 Hemoglobin A1C (POCT) (%) Date Value 03/19/2022 9.6 Family history of diabetes includes mother and father. Complications Microvascular: DPN (only when sugar is high) Macrovascular: denies Diabetic Foot and Retinal Eye Exam not Overdue Prior DM Medications: Metformin- diarrhea Current DM Related Medications: Current Medications 07/15/2022 DIABETES THERAPIES Medication Dosage Pharm Subclass insulin glargine,hum.rec.anlog (LANTUS SUBCUTANEOUS) Inject 50 Units subcutaneously once daily. Insulin Analogs - Long Acting insulin lispro (HUMALOG KWIKPEN) 100 unit/mL Inject 8 Units subcutaneously three times daily before meals. Insulin Analogs - Rapid Acting CARDIOVASCULAR Medication Dosage Pharm Subclass amLODIPine (NORVASC) 10 mg tablet Take 1 tablet by mouth once daily. Calcium Channel Blockers - Dihydropyridines pravastatin sodium (PRAVASTATIN ORAL) Take by mouth once daily. Antihyperlipidemic - HMG CoA Reductase Inhibitors (statins) OTHER Medication Dosage Pharm Subclass flash glucose scanning reader (InnovisSTYLE MARY ANN 2 READER) Check glucose 4 times daily Medical Supplies and DME - Glucose Monitoring Test Supplies flash glucose sensor (FREESTYLE MARY ANN 2 SENSOR) kit Check glucose 4 times daily Medical Supplies and DME - Glucose Monitoring Test Supplies fluocinonide (LIDEX) 0.05 % ointment Apply to affected areas of rash twice daily x 2 weeks, then once daily x 2 weeks. NOT for face, armpits, or groin Dermatological - Glucocorticoid ibuprofen (MOTRIN) 800 mg tablet NSAID Analgesics (DE SOUZA Non-Specific) - Propionic Acid Derivatives Insulin Syringe-Needle U-100 1 mL 25 x 1 syrg Use 1 syringe once daily to administer peg-interferon dose. Medical Supplies and DME - Insulin [place]-Syringes and Admin Supplies meloxicam (MOBIC) 7.5 mg tablet meloxicam 7.5 mg tablet NSAID Analgesics (DE SOUZA Non-Specific) - Oxicam Derivatives omega-3 acid ethyl esters (LOVAZA) 1 gram capsule Take 2 capsules by mouth twice daily. Antihyperlipidemic - Micro-3 Fatty Acid Type Physical Activity: Sedentary Diet: No specific diet regimen SMBG Frequency of Monitorin times daily Summary of Personal CGM Findings: Dates worn: 06/04/2022-06/17/2022 CGM Type: Mary Ann 1- CGM recording is adequate for interpretation. Worn 74% of time. 2- Average glucose is 277 mg/dl. 3. 4% time in range 70-180mg/dL 4. Coefficient of variation: 17.9% 5. Total frequency of hypoglycemia: 0% with BG<70 * Hypoglycemia patterns: none *Nocturnal hypoglycemia none noted 6- Hyperglycemic episodes 96% with BG>180 * Hyperglycemia Patterns: globally Past History, Medications, Allergies PAST MEDICAL HISTORY Diagnosis Date CML (chronic myelocytic leukemia) (HCC) Hypertension PAST SURGICAL HISTORY Procedure Laterality Date ANES OPEN/SURG ARTHROSCOPIC PROC KNEE JOINT NOS right knee BACK SURGERY HX L4 and L5 infusion CHOLECYSTECTOMY TONSILLECTOMY HX ALLERGIES No Known Allergies No family history on file. Social History Tobacco Use Smoking status: Never Smokeless tobacco: Never Vaping Use Vaping Use: Never used Substance Use Topics Alcohol use: Yes Comment: socially Drug use: No Review of Systems GENERAL: No weight loss, malaise or fevers RESPIRATORY: Negative for cough, hemoptysis, wheezing, COPD, dyspnea or shortness of breath CARDIOVASCULAR: Negative for chest pain, leg swelling, CHF or palpitations GI: No nausea, vomiting, or diarrhea ENDOCRINE: Negative for cold or heat intolerance, polyuria, polydipsia and goiter Feet: Numbness and tingling NEUROLOGIC:Negative for focal numbness or weakness, headaches and dizziness or syncope. Physical examination BP 160/80 Pulse 72 Wt 128.8 kg (284 lb) BMI 40.43 kg/m General appearance: Well appearing, alert, in no acute distress, well-hydrated, well nourished. Skin: Skin color, texture, turgor normal, no suspicious rashes or lesions HEART: normal rate LUNGS: unlabored, normal respiratory rate EXTREMITIES No deformities, No skin discoloration and No edema NEURO: Speech normal, mental status intact, no tremor noted. Previous Laboratory Results LABS Glucose (mg/dL) Date Value 05/13/2022 109 02/18/2022 134 11/26/2021 248 06/11/2021 173 03/13/2021 159 12/22/2020 231 Potassium (mmol/L) Date Value 05/13/2022 4.3 06/11/2021 4.4 Sodium (mmol/L) Date Value 05/13/2022 135 02/18/2022 136 11/26/2021 135 06/11/2021 137 03/13/2021 135 12/22/2020 135 Chloride (mmol/L) Date Value 05/13/2022 100 02/18/2022 100 11/26/2021 99 06/11/2021 100 03/13/2021 100 12/22/2020 103 CO2 (mmol/L) Date Value 05/13/2022 25 02/18/2022 27 11/26/2021 27 06/11/2021 26 03/13/2021 23 12/22/2020 24 Creatinine (mg/dL) Date Value 05/13/2022 0.59 02/18/2022 0.68 11/26/2021 0.56 06/11/2021 0.71 03/13/2021 0.60 12/22/2020 0.60 BUN (mg/dL) Date Value 05/13/2022 11 02/18/2022 11 11/26/2021 10 06/11/2021 16 03/13/2021 14 12/22/2020 19 Anion Gap (mmol/L) Date Value 05/13/2022 10 02/18/2022 9 11/26/2021 9 06/11/2021 11 03/13/2021 12 12/22/2020 8 Calcium (mg/dL) Date Value 06/11/2021 9.9 03/13/2021 9.5 12/22/2020 9.2 Calcium, Total (mg/dL) Date Value 05/13/2022 9.6 02/18/2022 9.3 11/26/2021 9.4 eGFR- (no units) Date Value 06/11/2021 >60 03/13/2021 >60 12/22/2020 >60 eGFR-All Other Races (.) Date Value 06/11/2021 >60 03/13/2021 >60 12/22/2020 >60 Estimated Glomerular Filtration Rate (mL/min/1.73m ) Date Value 05/13/2022 116 02/18/2022 111 11/26/2021 118 ALT (U/L) Date Value 05/13/2022 25 02/18/2022 24 11/26/2021 24 06/11/2021 38 03/13/2021 38 12/22/2020 26 TSH Date Value Ref Range Status 04/07/2020 2.410 0.270 - 4.200 uU/mL Final 03/24/2020 2.230 0.270 - 4.200 uU/mL Final 03/06/2020 1.950 0.270 - 4.200 uU/mL Final Free T4 Date Value Ref Range Status 01/31/2020 1.9 (H) 0.9 - 1.7 ng/dL Final Impression/Recommendations IMPRESSION Derrell Avitia JR is a 51 year old here for evaluation of DM Type 2 complicated by hypertension, hyperlipidemia, and peripheral neuropathy. HbA1c POC today is 9.6%. RECOMMENDATIONS: 1. Glycemic control: Target HbA1C is less than 7.0% per ADA guidelines. Patient is not at target. Increase prandial dose as below and add SS. Plan to make further adjustments in two weeks if needed. Plan Continue: Lantus 50 units daily Adjust: Humalog 10 units three times daily with meals plus sliding scale If Blood Glucose (mg/dL) is <150 Give 0 units 151-200 Give 2 unit 201-250 Give 4 units 251-300 Give 6 units 301-350 Give 8 units 351-400 Give 10 units >400 Give 12 units and notify provider I will check your report in two weeks and make further adjustments if needed. Check your blood glucose 4 times per day and record data in logbook and bring to each visit Glucose targets as: Fasting 80-130, before meals 100-130, and bedtime 100-150 mg/dL. Call the office with blood sugars less than 70 See CDE Follow up with me in 3 months Patient to continue to follow up with his PCP and with other consultants regarding his other medical problems. The patient was reminded to check their blood glucose as directed and to record the data in a logbook. This patient was advised to bring their logbook to each office visit. I recommended at least 150 minutes per week of moderate physical activity, such as walking and to reduce carbohydrates and overall caloric intake. 2. Hypertension/BP control: BP goal for patients with diabetes is 130/80. -- This patient is not at target on current regimen. Patient states his BP medication was held during his chemotherapy. He will be following up with his PCP soon to restart BP medication. I will defer management of this to their primary care physician. 3. Lipids: Target LDL cholesterol in patients with diabetes is less than 100, less than 70 if patient has overt CVD. Several studies have shown cardiovascular benefits of statin therapy in all patients with diabetes over age 40 with at least 1 CVD risk factor. Cholesterol, Total Date Value Ref Range Status 05/13/2022 256 (H) <200 mg/dL Final Comment: <200 mg/dL, Desirable 200-239 mg/dL, Borderline high >239 mg/dL, High Reference: 1. National Cholesterol Education Program ATP III Guideline At-A-Glance Quick Desk Reference: National Heart, Lung, and Blood [place]. National Institutes of Health. 2001: [facility] Publication No. . HDL Cholesterol Date Value Ref Range Status 05/13/2022 38 (L) >39 mg/dL Final Comment: 40-59 mg/dL, Acceptable >59 mg/dL, High: Negative risk factor for coronary heart disease <40 mg/dL, Low: Positive risk factor for coronary heart disease Reference: 1. National Cholesterol Education Program ATP III Guideline At-A-Glance Quick Desk Reference: National Heart, Lung, and Blood [place]. National Institutes of Health. 2001: [facility] Publication No. . LDL Cholesterol Date Value Ref Range Status 03/22/2022 151 (H) <100 mg/dL Final Comment: <100 mg/dL, Optimal 100-129 mg/dL, Near optimal/above optimal 130-159 mg/dL, Borderline high 160-189 mg/dL, High >189 mg/dL, Very high Secondary prevention optimal LDL Cholesterol levels are recommended to be < 70 mg/dL Triglyceride Date Value Ref Range Status 05/13/2022 128 <150 mg/dL Final Comment: <150 mg/dL, Normal 150-199 mg/dL, Borderline high 200-499 mg/dL, High >499 mg/dL, Very high Reference: 1. National Cholesterol Education Program ATP III Guideline At-A-Glance Quick Desk Reference: National Heart, Lung, and Blood [place]. National Institutes of Health. 2001: [facility] Publication No. 330. -- This patient is not on target. His statin was held during chemotherapy. -- Will defer to PCP who is managing. 4. Nephropathy screening: Annual measurement of urine albumin excretion is recommended in patients with diabetes. Albumin/Creat Ratio (mg/g) Date Value 03/22/2022 57 (H) Protein, Urine (no units) Date Value 05/13/2022 Negative 06/11/2021 2+ (A) Creatinine, Ur Random (UCRR) (mg/dL) Date Value 03/22/2022 43.8 -- This patient has microalbuminuria and is not currently on ALDEN-I or ARB. -- Unclear patient's BP medication regimen. He will be following up with PCP soon regarding this. Defer to PCP. 5. Ophthalmology: Annual dilated eye exams are recommended for patients with type 1 and type 2 diabetes. -- This patient is up to date with their annual eye exam and has no history of retinopathy. -- Last seen 11/2021 Any part of this document that has been added/copied & pasted from other documents has been reviewed for accuracy and updated as appropriate at the time of the patient encounter Kylee Dalal APRN.DOMINIC (Signed electronically to expedite mailing) documented in this encounter [facility] 05-07-2022 Miscellaneous Notes Sensor placed at net front end developer. Patient notified Patient states he does not have Freestyle mary ann sensor. He is requesting call back to be advised if ENDO has sample freestyle sensor device patient can use until next sensor can be covered by pt insurance. Please advise. [phone] documented in this encounter [facility] 03-19-2022 Instructions Kylee Dalal APRN.POLYSOMNOGRAPHY TECHNOLOGIST - 03/19/2022 1:06 PM EDT Plan Continue Lantus 50 units daily Obtain labs Check your blood glucose 2 times per day and record data in logbook and bring to each visit We reviewed glucose targets as: Fasting 80-130, before meals 100-130, and bedtime 100-150 mg/dL. Call the office with blood sugars less than 70 Follow up with me in 3 months documented in this encounter [facility] 03-19-2022 History of Present illness Narrative Endocrinology Initial Diabetes Assessment Derrell Avitia JR is here for a consultation regarding: DM Type 2 My final recommendations will be communicated back to the requesting physician by way of shared Medical record or letter to requesting physician via [place] mail. PCP is MD Aman Bradford MD ([facility]) [address] [place] [address] History of Present Illness Derrell Avitia JR is a 51 year old male presents today for evaluation of DM Type 2. Has a history of CML. Denies any steroid therapy with chemo. He was in a trial for a chemotherapeutic agent which caused pancreatitis. He was hospitalized 3 times for pancreatitis around 2019 and was diagnosed with diabetes afterwards. Was on metformin for a period of time but had diarrhea with this. Takes Lantus consistently but notes sometimes he feels he is injecting into hard skin. He sometimes has some residual on the top of the skin after injecting. Admits he does not follow a diabetic diet. Sleep/eating schedule isn't consistent. Only checking sugar 1-2 times per month, reports this may range from 130s to 400s, but on average is in the 250s. Reports difficulty getting enough blood from his fingers for testing. Date of Diagnosis: 2019 Last HbA1c: Hemoglobin A1C (%) Date Value 05/22/2020 9.9 09/07/2019 9.5 07/26/2019 6.8 03/23/2019 6.4 10/06/2018 7.6 Hemoglobin A1C (POCT) (%) Date Value 03/19/2022 9.6 Family history of diabetes includes mother and father. Complications Microvascular: DPN (only when sugar is high) Macrovascular: denies Diabetic Foot and Retinal Eye Exam not Overdue Prior DM Medications: Metformin- diarrhea Current DM Related Medications: Current Medications 03/19/2022 DIABETES THERAPIES Medication Dosage Pharm Subclass insulin glargine,hum.rec.anlog (LANTUS SUBCUTANEOUS) Inject 50 Units subcutaneously once daily. Insulin Analogs - Long Acting CARDIOVASCULAR Medication Dosage Pharm Subclass pravastatin sodium (PRAVASTATIN ORAL) Take by mouth once daily. Antihyperlipidemic - HMG CoA Reductase Inhibitors (statins) OTHER Medication Dosage Pharm Subclass fluocinonide (LIDEX) 0.05 % ointment Apply to affected areas of rash twice daily x 2 weeks, then once daily x 2 weeks. NOT for face, armpits, or groin Dermatological - Glucocorticoid ibuprofen (MOTRIN) 800 mg tablet NSAID Analgesics (DE SOUZA Non-Specific) - Propionic Acid Derivatives Insulin Syringe-Needle U-100 1 mL 25 x 1 syrg Use 1 syringe once daily to administer peg-interferon dose. Medical Supplies and DME - Insulin [place]-Syringes and Admin Supplies meloxicam (MOBIC) 7.5 mg tablet meloxicam 7.5 mg tablet NSAID Analgesics (DE SOUZA Non-Specific) - Oxicam Derivatives omega-3 acid ethyl esters (LOVAZA) 1 gram capsule Take 2 capsules by mouth twice daily. Antihyperlipidemic - Micro-3 Fatty Acid Type Physical Activity: Sedentary Diet: No specific diet regimen SMBG Frequency of Monitoring: Doesn't test regularly BG Values: Ranging 135-400, average 250 Hypoglycemia Frequency: none Past History, Medications, Allergies PAST MEDICAL HISTORY Diagnosis Date CML (chronic myelocytic leukemia) (HCC) Hypertension PAST SURGICAL HISTORY Procedure Laterality Date ANES OPEN/SURG ARTHROSCOPIC PROC KNEE JOINT NOS right knee BACK SURGERY HX L4 and L5 infusion CHOLECYSTECTOMY TONSILLECTOMY HX ALLERGIES No Known Allergies History reviewed. No pertinent family history. Social History Tobacco Use Smoking status: Never Smokeless tobacco: Never Vaping Use Vaping Use: Never used Substance Use Topics Alcohol use: Yes Comment: socially Drug use: No Review of Systems GENERAL: No weight loss, malaise or fevers RESPIRATORY: Negative for cough, hemoptysis, wheezing, COPD, dyspnea or shortness of breath CARDIOVASCULAR: Negative for chest pain, leg swelling, CHF or palpitations GI: No nausea, vomiting, or diarrhea ENDOCRINE: +polyuria/polydipsia Feet: Numbness and tingling NEUROLOGIC:Negative for focal numbness or weakness, headaches and dizziness or syncope. Physical examination BP 150/90 Pulse 68 Wt 120.7 kg (266 lb) BMI 37.87 kg/m General appearance: Well appearing, alert, in no acute distress, well-hydrated, well nourished. Skin: Skin color, texture, turgor normal, no suspicious rashes or lesions HEART: normal rate LUNGS: unlabored, normal respiratory rate ABDOMEN: rash to pannus, no lipohypertrophy EXTREMITIES No deformities, No skin discoloration and No edema NEURO: Speech normal, mental status intact, no tremor noted. Previous Laboratory Results LABS Glucose (mg/dL) Date Value 02/18/2022 134 11/26/2021 248 09/03/2021 241 06/11/2021 173 03/13/2021 159 12/22/2020 231 Potassium (mmol/L) Date Value 02/18/2022 4.4 06/11/2021 4.4 Sodium (mmol/L) Date Value 02/18/2022 136 11/26/2021 135 09/03/2021 136 06/11/2021 137 03/13/2021 135 12/22/2020 135 Chloride (mmol/L) Date Value 02/18/2022 100 11/26/2021 99 09/03/2021 101 06/11/2021 100 03/13/2021 100 12/22/2020 103 CO2 (mmol/L) Date Value 02/18/2022 27 11/26/2021 27 09/03/2021 26 06/11/2021 26 03/13/2021 23 12/22/2020 24 Creatinine (mg/dL) Date Value 02/18/2022 0.68 11/26/2021 0.56 09/03/2021 0.62 06/11/2021 0.71 03/13/2021 0.60 12/22/2020 0.60 BUN (mg/dL) Date Value 02/18/2022 11 11/26/2021 10 09/03/2021 12 06/11/2021 16 03/13/2021 14 12/22/2020 19 Anion Gap (mmol/L) Date Value 02/18/2022 9 11/26/2021 9 09/03/2021 9 06/11/2021 11 03/13/2021 12 12/22/2020 8 Calcium (mg/dL) Date Value 06/11/2021 9.9 03/13/2021 9.5 12/22/2020 9.2 Calcium, Total (mg/dL) Date Value 02/18/2022 9.3 11/26/2021 9.4 09/03/2021 9.1 eGFR- (no units) Date Value 06/11/2021 >60 03/13/2021 >60 12/22/2020 >60 eGFR-All Other Races (.) Date Value 06/11/2021 >60 03/13/2021 >60 12/22/2020 >60 Estimated Glomerular Filtration Rate (mL/min/1.73m ) Date Value 02/18/2022 111 11/26/2021 118 09/03/2021 115 ALT (U/L) Date Value 02/18/2022 24 11/26/2021 24 11/26/2021 26 06/11/2021 38 03/13/2021 38 12/22/2020 26 TSH Date Value Ref Range Status 04/07/2020 2.410 0.270 - 4.200 uU/mL Final 03/24/2020 2.230 0.270 - 4.200 uU/mL Final 03/06/2020 1.950 0.270 - 4.200 uU/mL Final Free T4 Date Value Ref Range Status 01/31/2020 1.9 (H) 0.9 - 1.7 ng/dL Final Impression/Recommendations IMPRESSION Derrell Avitia JR is a 51 year old here for evaluation of DM Type 2 complicated by hypertension, hyperlipidemia, and peripheral neuropathy. HbA1c POC today is 9.6%. RECOMMENDATIONS: 1. Glycemic control: Target HbA1C is less than 7.0% per ADA guidelines. Glucose is poorly controlled. He is monitoring sugar infrequently. We discussed that mealtime insulin may be indicated depending on his POC readings. Could trial SGLT2i first, but will order C-peptide to assess for insulin deficiency. If C-peptide is not robust or if his readings are acutely elevated, will start mealtime insulin. Avoid GLP-1 agonist due to pancreatitis history. Plan Continue Lantus 50 units daily for now Obtain Fasting glucose, C-peptide, UACR, and LDL Will follow up regarding results and change regimen accordingly Discussed other insulin injection sites, rotating sites Mary Ann 2 order sent to pharmacy- advised to let us know if this needs to go to DME Mary Ann 2 sample provided Plan for patient to meet with CDE after labs and plan of care is determined Check your blood glucose 2 times per day and record data in logbook and bring to each visit Glucose targets as: Fasting 80-130, before meals 100-130, and bedtime 100-150 mg/dL. Call the office with blood sugars less than 70 Follow up with me in 3 months Patient to continue to follow up with his PCP and with other consultants regarding his other medical problems. The patient was reminded to check their blood glucose as directed and to record the data in a logbook. This patient was advised to bring their logbook to each office visit. I recommended at least 150 minutes per week of moderate physical activity, such as walking and to reduce carbohydrates and overall caloric intake. 2. Hypertension/BP control: BP goal for patients with diabetes is 130/80. -- This patient is not at target on current regimen. I will defer management of this to their primary care physician. 3. Lipids: Target LDL cholesterol in patients with diabetes is less than 100, less than 70 if patient has overt CVD. Several studies have shown cardiovascular benefits of statin therapy in all patients with diabetes over age 40 with at least 1 CVD risk factor. Cholesterol, Total Date Value Ref Range Status 02/18/2022 203 (H) <200 mg/dL Final Comment: <200 mg/dL, Desirable 200-239 mg/dL, Borderline high >239 mg/dL, High Reference: 1. National Cholesterol Education Program ATP III Guideline At-A-Glance Quick Desk Reference: National Heart, Lung, and Blood [place]. National Institutes of Health. 2001: NIH Publication No. 01-3305. HDL Cholesterol Date Value Ref Range Status 02/18/2022 36 (L) >39 mg/dL Final Comment: 40-59 mg/dL, Acceptable >59 mg/dL, High: Negative risk factor for coronary heart disease <40 mg/dL, Low: Positive risk factor for coronary heart disease Reference: 1. National Cholesterol Education Program ATP III Guideline At-A-Glance Quick Desk Reference: National Heart, Lung, and Blood [place]. National Institutes of Health. 2001: NIH Publication No. 01-3305. LDL Cholesterol Date Value Ref Range Status 09/07/2019 84 <100 mg/dL Final Comment: <100 mg/dL, Optimal 100-129 mg/dL, Near optimal/above optimal 130-159 mg/dL, Borderline high 160-189 mg/dL, High >189 mg/dL, Very high Secondary prevention optimal LDL Cholesterol levels are recommended to be < 70 mg/dL Triglyceride Date Value Ref Range Status 02/18/2022 154 (H) <150 mg/dL Final Comment: <150 mg/dL, Normal 150-199 mg/dL, Borderline high 200-499 mg/dL, High >499 mg/dL, Very high Reference: 1. National Cholesterol Education Program ATP III Guideline At-A-Glance Quick Desk Reference: National Heart, Lung, and Blood [place]. National Institutes of Health. 2001: [facility] Publication No. 01-3305. -- No recent LDL, this has been ordered. 4. Nephropathy screening: Annual measurement of urine albumin excretion is recommended in patients with diabetes. Protein, Urine (no units) Date Value 02/18/2022 Negative 06/11/2021 2+ (A) -- This patient is not up to date on microalbumin screening and this was ordered today. 5. Ophthalmology: Annual dilated eye exams are recommended for patients with type 1 and type 2 diabetes. -- This patient is up to date with their annual eye exam and has no history of retinopathy. -- Last seen 11/2021 Any part of this document that has been added/copied & pasted from other documents has been reviewed for accuracy and updated as appropriate at the time of the patient encounter Klyee Dalal APRN.POLYSOMNOGRAPHY TECHNOLOGIST (Signed electronically to expedite mailing) documented in this encounter [facility] 03-14-2022 History of Present illness Narrative [facility] Department of Hematologic Oncology and Blood Disorders PATIENT NAME: Derrell Hsu [facility] NO: [id number] Date of service: 02/18/2022 Reason for visit: Follow up of CML on clinical trial Diagnosis: 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 (imatinib, dasatinib, nilotinib, bosutinib and ponatinib) Current Treatment - On a clinical trial - ACT 1920 [id number] Title: A phase 1b study of the pharmacokinetics, safety and efficacy of orally administered [id number] in subjects with refractory chronic myeloid leukemia (CML). Day 1 was 06/19/2020. Cycle 5 scheduled to start on 10/13/2020 was delayed to elevated lipase levels. Today is day 28 of cycle 21 (or day 1 of cycle 22) today. He is being dosed at 30 mg every other day. Molecular monitoring with qRT-PCT for p210 bcr-abl transcripts since starting the clinical trial in June of 2020 - 05/29/2020 (prior to starting clinical trial) - >50%IS 09/15/2020 - 5.02% 12/22/2020 - 3.179% 06/15/2021 - 0.9714% (2 MR) 02/18/2022 - 0.5562% Impression: This is a 50 year old male with chronic phase CML who is here for follow up on clinical trial Recommendations: 1) Chronic Myeloid Leukemia (CML) in chronic phase with failure or intolerance to multiple TKI's (dasatinib, imatinib, nilotinib, bosutinib and ponatinib) - He started the CML clinical trial - ACTG 1920 [id number] Title: A phase 1b study of the pharmacokinetics, safety and efficacy of orally administered [id number] in subjects with refractory chronic myeloid 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 He has completed 18 cycles. He achieved early 3 month molecular response and three serial bone marrow biopsies done as part of the clinical trial protocol on 09/15/2020, 12/22/2020 and 06/15/2021 show him in CCyR. Quantitative RT-PCR for p210 bcr-abl level from 09/15/2020, 12/22/2020 and 06/15/2021 show steadily declining bcr-abl transcript levels. A BMBx per protocol on 11/29/2021. Follow up as per clinical trial protocol. 2) Hypertension - Blood pressure on the higher side during clinic visits. Needs close continued follow up with PCP. 3) Severe obstructive sleep apnea - Confirmed on polysomnography test done on 12/21/2017. He has been recommended CPAP but does not use it. 5) Psoriasiform dermatitis / pruritic papular erythematous rash on trunk - Has tried cetrizine and kenalog in the past. Can use the same. Unclear whether this I drug related as he has had a long history of intermittent outbreaks of rash. 6) Diabetes mellitus - Currently on 30 units of lantus (long acting insulin). Blood glucose control remains sub-optimal. As he is on an experimental drug for CML and with sub-optimal glucose control, I recommend a formal endocrinology evaluation for tighter blood glucose control and continued screening for diabetic neuropathy, retinopathy and renal disease. 7) History of chronic mild hyponatremia - Resolved. Likely study-drug related based on the temporality of onset coinciding with initiation of the study drug. 8) History of elevated lipase and history of pancreatitis while on ponatinib - Close monitoring. 9) Hypercholesterolemia and hypertriglyceridemia - He has underlying risk factors for CAD and CVA. His cholesterol and triglycerides remains high. Recommended to resume omega-3 fatty acids. Check hepatic function panel a month from now. Clinical course - - He was diagnosed with CML in December of 2011 - A bone marrow biopsy 01/02/2012 showed a hypercellular bone marrow (90%) with markedly expanded myeloid compartment, relative erythroid hypoplasia and decreased megakaryocytes, presence of storage iron and no significant increase in reticulin fibrosis. CBC with differential from the same [place] [address], [place] [address], monocytosis (5700), 6700 lymphocytes, 500 basophils and thrombocytopenia with platelets at 298632. Metaphase cytogenetics showed presence of t(9;22) in all 20 metaphases. - Started on imatinib at 400 mg once daily on 02/12/2012. Rising bcr-abl transcript levels reported at 2.65% IS on 11/03/2012 (after 8 months of imatinib therapy). A bone marrow evaluation on 11/19/2012 (limited analysis as no core biopsy specimen was obtainable) showed a cellular bone marrow with trilineage hematopoiesis, 1% blasts, adequate megakaryocytes, presence of storage iron but no increase in ring sideroblasts. - Because of failure to achieve MMR and with rising transcript levels, he was switched to nilotinib 400 mg twice daily on 12/28/2012. - Development of rash on his face and arms and unspecified intolerance, he was switched to dasatinib 100 mg daily on 02/22/2013 after being on nilotinib for approximately 2 months. - On dasatinib therapy, bcr-abl transcript level dropped to 0.26 %IS on 11/29/2013 from 1.89 IS% on 02/26/2013 but thereafter the transcript levels started rising steadily reaching 1.61 IS% as of 11/11/2014. He never achieved a MMR on dasatinib despite being on it for 1 year and nine months. He was referred here for further evaluation in November of 2014. Kinase domain mutation analysis identified no mutations. - Rechallenged with nilotinib at 300 mg twice daily in Feb 2015. Serial measurements of p210 bcr-abl transcript levels were as follows on nilotinib - IS% was 1.34 in May of 2015, 2.16 in November of 2015 and 72.6 in February of 2016, consistent with failure of nilotinib. 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 - Initiated on bosutinib on Mar 2016 - initial response with drop in bcr-ab transcript levels to 3 in Jun 2016 but by Mar 2017 went up to 15.78. - He was enrolled on a clinical trial, ARIA [id number] A Randomized, Open-label, Phase 2 Trial of Ponatinib in Patients with Resistant Chronic Phase Chronic Myeloid Leukemia to Characterize the Efficacy and Safety of a Range of Doses on 05/21/2017 (day 1 of cycle 1). He was randomized to 45 mg daily. He has had three episodes of pancreatitis that required dose reduction or interruption. The last dose of the drug was 07/15/2019. He completed a total of 28 cycles on the clinical trial. Treatment course, dose modifications, response ( p210 bcr-abl transcripts levels by qRT-PCR), and complications while on ponatinib trial- 1) 04/24/2017 - 75.76% IS (prior to starting ponatinib at 45 mg on 05/21/2017) 2) 05/02/2017 - 70% IS 3) 08/12/2017 - 3.4% IS (~3 months of ponatinib at 45 mg) 4) 11/04/2017 - 1.2% IS ( ~ 6 months on ponatinib, dose reduced to 30 mg one daily from 45 mg on 09/20/2017 due to pancreatitis) 5) 01/27/2018 - 1.1% IS (on 30 mg of ponatinib since 09/20/2017) 6) 04/21/2018 - 0.85% IS (30 mg ponatinib) 7) 05/08/2018 - ponatinib dose reduced to 15 mg once daily per protocol 8) A bone marrow biopsy from 05/03/2019 showed normocellular marrow (50%) with trilineage hematopoiesis, decreased iron stores. Cytogenetics showed 46,XY,t(9;22)(q34;q11.2)[3]/46,XY[ 17], consistent with failure to achieve CCyR. BCR-ABL transcripts have been gradually increasing since decreased dose. Last level drawn on 03/2019 noted 9.5% IS. 9) 06/18/2019 - ponatinib dose increased to 30 mg daily 10) Hospitalized from 06/23/2019 to 06/25/2019 with pancreatitis (patient reports lipase elevated at 960). Ponatinib held on 06/23/2019 11) ED visit on 06/29/2019 for chest pain - CT chest negative for PE. Stress test was negative. 12) Resumed ponatinib at 30 mg on 07/09/2019 (held from 06/23/2019 to 07/08/2019) 13) He was hospitalized from 07/15/2019 to 07/19/2019 for pancreatitis - lipase elevated at 1966. Ponatinib was discontinued on 07/15/2019. - He underwent a bone marrow biopsy on 08/16/2019 that showed a normocellular marrow with trilineage hematopoiesis, 1% blasts and in complete cytogenetic remission (CCyR). 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 - A bone marrow transplant was deferred as long as it may be possible to maintain him in CCyR. He has a haploidentical brother and a well-matched unrelated donor. - He was started on pegylated interferon amber-2a on 12/14/2019 and discontinued on 01/27/2020 due to patient's poor compliance with monitoring. - His CML was being managed with hydroxyurea while waiting for enrollment in a clinical trial. - He was presented and consented for the clinical trial - ACTG 1920 20-998 Title: A phase 1b study of the pharmacokinetics, safety and efficacy of orally administered [id number] in subjects with refractory chronic myeloid leukemia (CML). He underwent a screening marrow on 05/03/2020 that showed CML in chronic phase (0% blasts) and identification of t(9;22) in all 20 metaphases. As the T315I was not checked as part of initial screening, his clinical trial date was deferred to 06/19/2020 to allow time for re-screening. BCR-ABL kinase domain mutation analysis from 05/29/2020 identified no mutations including T315I. Quantitative RT-PCT for p210 bcr-abl from 05/29/2021 showed levels at >50%IS. - He started the clinical trial on 06/19/2020.He underwent a follow up bone marrow biopsy on 09/15/2020 that showed complete cytogenetic remission. - He stopped taking the study drug on 10/03/2020 as he had misplaced it. Cycle 5 scheduled to start on 10/15/2020 was delayed due to elevated lipase. He was recently exposed to poison radha in September and broke out in rash around his left eye, face, trunk and chest for which he completed a short course of dexamethasone. - Three serial bone marrow biopsies done as part of the clinical trial protocol (09/15/2020, 12/22/2020, 06/15/2021 and 11/29/2021 ) shows him to be in CCyR. Quantitative RT-PCR for p210 bcr-abl level from 09/15/2020, 12/22/2020, 06/15/2021 and 02/18/2022 show steadily declining bcr-abl transcript levels. Review of system including interval history: Constitutional: No fever, anorexia or malaise. + chronic stable fatigue (rates it as 3-4/10 with 10 being the worst) Eyes: No change in vision, blurriness, diplopia, redness, or irritation. ENT: No mouth sores or bleeding gums; no hoarseness of voice. No epistaxis or other nasal problems. No changes in hearing, vertigo, or tinnitus. Respiratory: No coughing, wheezing, dyspnea at rest, exertional dyspnea, or hemoptysis. Cardiovascular: No anginal symptoms, palpitations, orthopnea, PND, syncopal events or presyncopal events. Gastrointestinal: No nausea, no vomiting, heartburn or acid reflux, constipation or abdominal cramping. Bowel habit is unchanged; and no melena or hematochezia. Genitourinary: No urgency, frequency, dysuria, or hematuria. Musculoskeletal: + stable chronic joint pains/arthritis. Unrestricted ambulation. Reports mild swelling and numbness in the little finger of right hand Skin: pruritic papular rash on chest Neurological: No syncope, near-syncope, or seizures; no headaches or alteration in sensorium or motor strength. Psychiatric: Memory, short term & manager exchange intact; no disturbance in sleep pattern and denies symptoms of depression. Endocrine: Negative for temperature intolerance, unusual sweating, or symptoms of glucose intolerance. Hematologic/Lymphatic: Negative for prolonged bleeding, easy bruising, and swollen nodes. No lower extremity edema. Allergic/Immunologic: No itching, or jaundice. Past medical and surgical history: - Chronic Phase CML - Hypertension - ADHD - Gastritis - Chronic diarrhea preceding his dx of CML and prior to starting imatinib - Morbid obesity - Psoriasiform dermatitis - Cholecystectomy - Tonsillectomy - Back Surgery - Right knee arthroscopy - chronic pruritis rash for > 10 years Current medication: Reviewed from [facility] and integrated in assessment and plan. Social History: He is . 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 He does not smoke cigarettes and has not used any illicit drugs. He drinks alcoholic beverages occasionally. Family History: Father has CAD and had cardiac surgery, he also has DM. Still living Mother has DM. He has one brother is doing well. He has 2 children, both are doing well. He denies any prior exposure to toxic chemicals, radiation therapy, chemotherapy. Physical Examination: Vitals: BP 154/93 Pulse 62 Temp 36.4 C (97.5 F) (Oral) Resp 20 Ht 178.5 cm (5' 10.28 ) Wt 121.7 kg (268 lb 6.4 oz) SpO2 98% BMI 38.21 kg/m ECOG - 1 Gen: Awake, alert, oriented x 3, NAD, accompanied by his Skin: Scattered erythematous areas with papular rash on trunk (front, back and sides) - continues to improve Eyes: sclera anicteric Lungs: Normal chest expansion, clear breath sounds Heart: Normal rate and rhythm, no murmurs Abdomen: protuberant, soft, +BS- non-tender - spleen not appreciated but difficult due to body habitus Extremities: no edema Labs: CBC with differential reviewed from [facility] and integrated in assessment and plan. William Howell MD PhD MPH Associate Staff Hematologic Oncology and Blood Disorders Pager [phone] Date of service: 02/18/2022 documented in this encounter [facility] 02-19-2022 History of Present illness Narrative ACTG 1920 20- A phase 1b study of the pharmacokinetics, safety and efficacy of orally administered [id number] in subjects with refractory chronic myeloid leukemia (CML). Patient is here for screening for ACTG 1920 / IRB 20-8. 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 06/19/2020 Patient met all inclusion and exclusion criteria and deemed eligible to participate on the study by the sponsor 02/18/2022 Cycle 21 day 28 Patient met with research team, pleasant and engaged in conversation. Patient denies any side effects to report. Patient reports he is expecting his CPAP machine in the next few weeks, ortho appt next week for his right knee. Emergency Room Tech appt will be requested again for the patient to be seen in [place]. Patient in agreement with the plan of care. Dr. Howell reviewed all labs and AE's. ECHO: 61% ejection fraction BMBx: scheduled for 05/13/2022 in IR EKG: QTcF 395, 414, 414 ms PE: ECO Ankle-brachial index: Left brachial 148/81 64 Left ankle 170/72 66 VS: 02/18/2022 Weight 121.7 kg (268 lb 6.4 oz) Height 178.5 cm (5' 10.28 ) BSA 2.46 BMI 38.21 Temp 36.4 C (97.5 F) Pulse 62 Resp 20 BP 154/93 PAST MEDICAL HISTORY Diagnosis Date Status CML (chronic myelocytic leukemia) (HCC) 12/2011 Active chronic phase not controlled Hypertension 09/14/2015 Active controlled without medication ADHD >10 years Active controlled without medication Gastritis Not active Chronic diarrhea ~2011 Not active Morbid obesity >10 years Active back pain >10 years Active controlled with medication chronic pruritic rash >10 years Active intermittently controlled without medication moderate upper septal asymmetric left ventricular hypertrophy 05/05/2017 Present floaters in both eyes (eye exam 05/05) Active no medication or treatment Diabetes 12/2019 Active controlled with medication Rash 11/2019 Active uncontrolled,medication to start 05/29/2020 PAST SURGICAL HISTORY Procedure Laterality Date BACK SURGERY HX Prior to 03/2012 L4 and L5 infusion SC ANESTH,KNEE JOINT; NOS right Prior to 03/2012Prior to 03/2012 right knee REMOVAL GALLBLADDER Prior to 03/2012 TONSILLECTOMY HX Prior to 03/2012 Social history: Patient has been for 26 years with adult children. Patient denies illegal drug use and drinks alcohol very rarely. Patient is a non-smoker. Transfusion History: None History of Prior Medical Treatments for CML: Gleevec 02/12/2012 - 11/2012 Nilotinib 12/2012 - 02/2013 Dasatinib 02/2013 - 12/2014 Nilotinib 12/2014 -- 03/2016 Bosutinib 03/2016 - 05/02/2017 [facility] 2915 15-875 trial of Ponatinib 05/21/2017 - 07/15/2019 pegylated interferon amber-2a on 12/14/2019 - 01/27/2020 BCR-ABL mutation history: bcr-abl transcript levels reported at 2.65% IS on 11/03/2012 bcr-abl transcript levels reported 1.89% IS on 02/26/2013 bcr-abl transcript levels reported 0.26% IS on 11/29/2013 bcr-abl transcript levels reported 1.34% IS in 05/2015 2.16 in November of 2015 72.6 in February of 2016 bcr-ab transcript levels to 3 in Jun went up to 15.78. 04/24/2017 - 75.76% IS (prior to starting ponatinib at 45 mg on 05/21/2017) 05/02/2017 - 70% IS 08/12/2017 - 3.4% IS (~3 months of ponatinib at 45 mg) 11/04/2017 - 1.2% IS 01/27/2018 - 1.1% IS 04/21/2018 - 0.85% IS (30 mg ponatinib) BCR-ABL transcripts have been gradually increasing since decreased dose of Ponatinib. Last level drawn on 03/2019 noted 9.5% IS. Medications: NKA Medication Dose Start Date Stop Date Comments Ibuprofen 800 mg once daily as needed per patient 10/2015 For general body aches Insulin Lantus 35 units daily Per patient 12/2019 For diabetes Hydrea 500 mg 2 capsules by mouth once daily 12/2019 ~ 04/17/2020 For leukocytosis Hydrea 500 mg capsules orally twice a day 05/01/2020 05/11/2020 increased to 05/11/2020 For leukocytosis Hydrea (2) 500 mg capsules orally 2x/day 05/11/2020 05/17/2020 For leukocytosis Hydrea (2) 500 mg capsules orally 3x/day 05/17/2020 05/22/2020 For leukocytosis Hydrea Tapering dose: (2) 500 mg capsules orally 2x/day for 3 days. Then (2) 500 mg capsules orally once a day for 2 days then stop. 05/22/2020 05/26/2020 For leukocytosis Kenalog cream Apply 2x/day to affected areas. 05/29/2020 For rash Hydrea (2) 500 mg capsules orally 2x/day 06/12/2020 06/16/2020 For leukocytosis Hydrea (2) 500 mg capsules orally 3x/day 06/16/2020 06/17/2020 For leukocytosis Lovaza (2) 1gm capsules orally 2x/day 06/22/2020 on hold restarted 09/03/2021 Hypertriglyceridemia Advil 400 mg orally every 6 hours as needed 07/10/2020 For headache Decadron 4 mg orally 10/04/2020 10/06/2020 For poison radha Lidex ointment 0.05% Apply twice daily for 2 weeks, then once daily for 2 weeks For rash. Do not apply to face, armpits or groin Colace 100 mg orally once a day as needed 06/07/2021 Constipation Toxicities: CTCAE V. 5 SCREENING all predate therapy, are chronic conditions and will not be actively followed unless they worsen during the clinical trial. Fasting labs Day -28 06/05/2020 Leukocytosis Grade 3 UNRELATED Start date: 05/01/2020. Resolved: ongoing. Drugs used to treat: yes. Outcome: Still present. Hypertension:Stage Prehypertension Grade 1 UNRELATED Start date:05/01/2020. Resolved: ongoing. Drugs used to treat: none. Outcome: Still present. Hyperglycemia Grade 1 UNRELATED Start date: 05/01/2020. Resolved: ongoing. Drugs used to treat: none. Outcome: Still present Hypertriglyceridemia Grade 1 UNRELATED Start date: 05/22/2020. Resolved: ongoing. Drugs used to treat: none. Outcome: Still present. Rash on trunk of body Grade 1 UNRELATED Start date: 05/29/2020. Resolved: ongoing. Drugs used to treat: yes. Outcome: Still present. Fasting labs Day -7 06/12/2020 Aspartate aminotransferase increased Grade 1 UNRELATED Start date: 06/12/2020. Resolved: ongoing. Drugs used to treat: none. Outcome: Still present. Hyperglycemia Grade 2 UNRELATED Start date: 06/05/2020. Resolved: ongoing. Drugs used to treat:yes. Outcome: Still present. Hypertriglyceridemia Grade 2 UNRELATED Start date: 06/12/2020. Resolved: ongoing. Drugs used to treat: none. Outcome: Still present. Fasting labs 02/18/2022: Alkaline phosphatase Grade 1 Unrelated (prior to drug)Start date: 06/19/2020. Resolved: ongoing. Drugs used to treat:no Outcome:present intermittently. Hyponatremia Grade 1 Unrelated (prior to drug) Start date 06/19/2020 Resolved:ongoing.Drugs used to treat: no. Outcome: present intermittently Hypertension Grade 1 Unrelated Start date 08/14/2020 Resolved:ongoing. Drugs used to treat:no. Outcome: still present. Hypertension Grade 2 Unrelated Start date 06/11/2021 Resolved:ongoing. Drugs used to treat:no. Outcome: still present intermittently. Cholesterol high Grade 1 Unrelated Start date: 10/13/2020esolved: ongoing. Drugs used to treat: none. Outcome: still present. Constipation Grade 1 Unrelated Start date:06/07/2021.Resolved:ongoing. Drugs used to treat: yes. Outcome: present intermittently. Fatigue Grade 1 Unrelated Start date:06/07/2021.Resolved:ongoing. Drugs used to treat: no. Outcome: present intermittently. Lipase Grade 1 Possibly related Start date:09/03/2021 Resolved: ongoing Drugs used to treat: no. Outcome:present Hypoalbuminemia Grade 1 Unrelated Start date:11/26/2021 Resolved: ongoing Drugs used to treat: no. Outcome: present Right knee pain Grade 1 Unrelated Start date: Resolved: ongoing Drugs used to treat: no. Outcome: present Resolved AE's: Hypertriglyceridemia Grade 3 Unrelated(prior to drug) Start date: 06/19/2020. Resolved: 06/26/2020 Drugs used to treat: none. Outcome resolved to baseline day -28 Amylase Grade 1 Possibly related Start date 06/26/20 Resolved:07/03/2020. Drugs used to treat: no. Outcome: resolved. Lipase Grade 3 Possibly related Start date 06/26/20 Resolved:07/03/2020.Drugs used to treat: no. Outcome: resolved. Lipase Grade 1 Possibly related Start date:07/13/2020 Resolved: 07/17/2020 Drugs used to treat: no. Outcome:resolved. Constipation Grade 1 Unrelated Startdate:06/22/20.Resolved:06/23/19. Drugs used to treat: no. Outcome: resolved. Hypoalbuminemia Grade 1 Unrelated Startdate:06/22/20.Resolved:. Drugs used to treat: no. Outcome: resolved. Platelet count decreased Grade 1 Possibly related Startdate:07/13/20.Resolved:. Drugs used to treat: no. Outcome: resolved. Headache Grade 1 Possibly related Startdate:07/10/2020.Resolved:08/15/19. Drugs used to treat:yes. Outcome: resolved. Lipase Grade 3 Possibly related Start date 08/03/2020 Resolved:08/14/2020.Drugs used to treat: no. Outcome: resolved. Amylase Grade 1 Possibly related Start date 08/03/2020 Resolved:08/14/2020.Drugs used to treat: no. Outcome: resolved. Heart palpitation Grade 1 Unrelated Start date: 08/25/2020. Resolved:08/27/2020. Drugs used to treat:no. Outcome: resolved. Rash Grade 1 Unrelated Start date: 10/04/2020 Resolved:10/06/2020. Drugs used to treat: yes. Outcome:resolved Hyperglycemia Grade 3 Unrelated Start date: 10/13/2020 Resolved: 10/20/2020 Drugs used to treat:yes. Outcome:resolved to Grade 2. Hyponatremia Grade 1 Unrelated (prior to drug) Start date 06/19/2020 Resolved:10/20/2020.Drugs used to treat: no. Outcome: Resolved. Alkaline phosphatase Grade 1 Unrelated (prior to drug)Start date: 06/19/2020. Resolved: 10/27/2020. Drugs used to treat:no Outcome:Resolved. Alanine aminotransferase increased Grade 1 Unrelated Start date: 10/13/2020esolved: 10/20/2020. Drugs used to treat: none. Outcome: Resolved. Lipase increased Grade 1 Possibly related Start date: 10/13/2020esolved: 10/27/2020. Drugs used to treat: none. Outcome: Resolved to normal. Lipase increased Grade 2 Possibly related Start date: 10/20/2020esolved:10/27/2020. Drugs used to treat: none. Outcome: Resolved to normal. Hypertriglyceridemia Grade 3 Possibly related Start date: 10/13/2020. Resolved:10/20/2020 Drugs used to treat: none. Outcome:Resolved to Grade 2. Hypertriglyceridemia Grade 2 Possibly related Start date: 10/20/2020. Resolved:10/27/2020 Drugs used to treat: none. Outcome:Resolved to grade 1 screening. Hypoalbuminemia Grade 1 Unrelated Start date: 10/20/2020. Resolved:11/23/2020 Drugs used to treat: none. Outcome: resolved. Rash Possibly related bilateral lower abdomen, left upper chest, behind both knees, and right scapula area. Grade 1 Unrelated Start date: 11/07/2020 Resolved:02/07/2021. Drugs used to treat:yes. Outcome: resolved. Patients last dose of study drug was 02/17/2022. Next dose due on 02/19/2022 Re-educated patient on how to complete the medication diary. Educated patient how to take the drug and how to transport and store drug going forward it can be stored at room temperature. Instructed patient that he will need to return drug and all bottles/unused medication at his next visit. Patient has 3 prong medal folder with drug information, contact information for research team, after hours number. Patient verbalized understanding of all information provided. Patient returned diary from previous visit completed. New diary given. Patient returned: 3 bottles, 2 empty and 1 bottle with 54 pills. The count is accurate. Patient was given drug: yes. 3 bottles of drug. 60 pills per bottle of 10 mg pills. To be dosed with 30 mg of HQP on 02/19/2022 every other day. Lot# [id number] Patient presented today to participate on the trial ACTG 1920 / IRB 20-998. Patient signed consent previously on 05/29/2020 with nurse present prior to having ANY procedures done. Copy given to the patient. Patient had labs drawn, and then met with the clinical team. Patient understands that he must call nurse or MD prior to taking any new medications as well as to stopping any medications. Patient also understands to call nurse/MD should she have any new medical issues arise and/or goes to the hospital for any reason. Patient is aware to monitor for fevers and to call and/or go to the nearest emergency room for temperatures of 100.4 or greater. 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 Patient understands that this participation is voluntary and that he may withdraw at any time during the trial. documented in this encounter [facility] 02-18-2022 Nurse Note Additional intake questions: Has the patient had fever, nausea, vomiting, diarrhea, constipation, fatigue for > 1 week? Yes, constipation (day of last BM 02/17/2022) and fatigue Does the patient have a decreased appetite? No Does patient want to see a Car Tracer? No (yes to any of above refer patient to schedulers for dietitian appointment) ) Does patient have any new or increased numbness or tingling of extremities? No Is patient interested in fertility information? No Does patient need any prescription refills? No Does patient have an advanced directive in place? No, Patient referred to Resource Center documented in this encounter [facility] 01-17-2022 Miscellaneous Notes Spoke to pt and scheduled biopsy for 05/16/22. Order pending RADIOLOGIST REQUEST / APPROVAL FORM STAFF RADIOLOGIST:Dr Froy Hernandez MD PROCEDURE TO BE DONE UNDER: CT PROCEDURE REQUESTED: Aspiration PROCEDURE: Approved TIME SLOT NEEDED: 1 Hour Pre-procedure labs: CBC: not needed INR: not needed COVID: not needed SIR Bleeding risk category for this procedure: Low risk. Reference from [facility] [employer]: [email or web address] STAFF SIGNATURE: Yenifer Cox MD DATE: January 09, 2022 TIME: 4:52 PM BX. COORDINATOR INFORMATION LAB RESULTS: PT INR (no units) Date Value 06/11/2021 1.0 INR (no units) Date Value 11/26/2021 1.0 APTT (sec) Date Value 11/26/2021 24.2 06/11/2021 25.5 Platelet Count (k/uL) Date Value 11/26/2021 259 06/11/2021 275 Current Outpatient Medications Medication Sig pravastatin sodium (PRAVASTATIN ORAL) Take by mouth once daily. meloxicam (MOBIC) 7.5 mg tablet meloxicam 7.5 mg tablet fluocinonide (LIDEX) 0.05 % ointment Apply to affected areas of rash twice daily x 2 weeks, then once daily x 2 weeks. NOT for face, armpits, or groin omega-3 acid ethyl esters (LOVAZA) 1 gram capsule Take 2 capsules by mouth twice daily. insulin glargine,hum.rec.anlog (LANTUS SUBCUTANEOUS) Inject 30 Units subcutaneously once daily. Insulin Syringe-Needle U-100 1 mL 25 x 1 syrg Use 1 syringe once daily to administer peg-interferon dose. ibuprofen (MOTRIN) 800 mg tablet Current Facility-Administered Medications Medication Dose Route Frequency perflutren lipid microspheres 1.3 mL in NaCl (PF) 0.9% 10 mL injection (DEFINITY) INTRAVENOUS DIRECTED PRN sodium chloride 0.9 % (flush) 10 mL (BD POSIFLUSH) 10 mL INTRAVENOUS DIRECTED PRN perflutren lipid microspheres 1.3 mL in NaCl (PF) 0.9% 10 mL injection (DEFINITY) INTRAVENOUS DIRECTED PRN sodium chloride 0.9 % (flush) 10 mL (BD POSIFLUSH) 10 mL INTRAVENOUS DIRECTED PRN sodium chloride 0.9 % (flush) 10 mL (BD POSIFLUSH) 10 mL INTRAVENOUS DIRECTED PRN sodium chloride 0.9 % (flush) 10 mL (BD POSIFLUSH) 10 mL INTRAVENOUS DIRECTED PRN sodium chloride 0.9 % (flush) 10 mL (BD POSIFLUSH) 10 mL INTRAVENOUS DIRECTED PRN ALLERGIES No Known Allergies FILMS SENT TO WORKSTATION: GUIDELINES FOR HOLDING ANTI-PLATELET AND ANTI- COAGULATION THERAPY: none on file NURSE SIGNATURE: Emily Anthony LPN DATE: January 09, 2022 TIME: 7:37 AM STAFF-INITIATED RADIOLOGY BIOPSY / ASPIRATION / DRAIN REQUEST FORM Date: January 08, 2022 Time: 4:34 PM PATIENT CONTACT INFORMATION: [phone] SCHEDULING: Date: May 16, 2022 (Specific requests must be greater than 10 business days from the date of request) RADIOLOGY SERVICE GROUP (Abdominal / Thoracic / MSK / Neuro): bone marrow biopsy/aspirate SPECIFICS OF THE REQUEST (Please be as detailed as possible): BIOPSY of Bone marrow- BONE (Specify) Bone marrow biopsy and aspirate SPECIAL REQUESTS: TISSUE SAMPLE, LABWORK: N/A MEDICAL DIAGNOSIS: Chronic Myeloid Leukemia (i.e. Known primary cancer or suspected diagnosis) IMAGING STUDY AND DATE THAT IS THE BASIS OF THE REQUEST: Per study protocol time point. (Note: Requests for random organ biopsies, specifically liver and kidney random biopsies do not need imaging.) IMAGING: n/a (If the imaging was obtained outside the [facility] system, PLEASE upload for review prior to approval.) Note to all persons requesting biopsies: All biopsy requests will be scheduled as quickly as possible, based on the clinical urgency, availability of appointment times, the need to hold anti-thrombolytic therapy (aspirin and other blood thinners) and the patient s schedule, including the need for an available uke driver. If a percutaneous biopsy or drainage is not felt to be safe or an alternative method for establishing a diagnosis is possible, this will be discussed directly with the requesting physician. documented in this encounter [facility] 01-10-2022 History of Present illness Narrative [facility] Department of Hematologic Oncology and Blood Disorders PATIENT NAME: Derrell HOGAN NO: [id number] Date of service: 11/26/2021 Reason for visit: Follow up of CML on clinical trial Diagnosis: 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 (imatinib, dasatinib, nilotinib, bosutinib and ponatinib) Current Treatment - On a clinical trial - ACTG 1919 20-998 Title: A phase 1b study of the pharmacokinetics, safety and efficacy of orally administered [id number] in subjects with refractory chronic myeloid leukemia (CML). Day 1 was 06/19/2020. Cycle 5 scheduled to start on 10/13/2020 was delayed to elevated lipase levels. Today is day 28 of cycle 18 (or day 1 of cycle 19) today. He is being dosed at 30 mg every other day. Molecular monitoring with qRT-PCT for p210 bcr-abl transcripts since starting the clinical trial in June of 2020 - 05/29/2020 (prior to starting clinical trial) - >50%IS 09/15/2020 - 5.02% 12/22/2020 - 3.179% 06/15/2021 - 0.9714% (2 MR) Impression: This is a 50 year old male with chronic phase CML who is here for follow up on clinical trial Recommendations: 1) Chronic Myeloid Leukemia (CML) in chronic phase with failure or intolerance to multiple TKI's (dasatinib, imatinib, nilotinib, bosutinib and ponatinib) - He started the CML clinical trial - ACTG 1920 20-998 Title: A phase 1b study of the pharmacokinetics, safety and efficacy of orally administered [id number] in subjects with refractory chronic myeloid 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 He has completed 18 cycles. He achieved early 3 month molecular response and three serial bone marrow biopsies done as part of the clinical trial protocol on 09/15/2020, 12/22/2020 and 06/15/2021 show him in CCyR. Quantitative RT-PCR for p210 bcr-abl level from 09/15/2020, 12/22/2020 and 06/15/2021 show steadily declining bcr-abl transcript levels. A BMBx per protocol on 11/29/2021. Follow up as per clinical trial protocol. 2) Hypertension - Blood pressure on the higher side during clinic visits. Needs close continued follow up with PCP. 3) Severe obstructive sleep apnea - Confirmed on polysomnography test done on 12/21/2017. He has been recommended CPAP but does not use it. 5) Psoriasiform dermatitis / pruritic papular erythematous rash on trunk - Has tried cetrizine and kenalog in the past. Can use the same. Unclear whether this I drug related as he has had a long history of intermittent outbreaks of rash. 6) Diabetes mellitus - Currently on 30 units of lantus (long acting insulin). Blood glucose control remains sub-optimal. As he is on an experimental drug for CML and with sub-optimal glucose control, I recommend a formal endocrinology evaluation for tighter blood glucose control and continued screening for diabetic neuropathy, retinopathy and renal disease. 7) History of chronic mild hyponatremia - Resolved. Likely study-drug related based on the temporality of onset coinciding with initiation of the study drug. 8) History of elevated lipase and history of pancreatitis while on ponatinib - Close monitoring. 9) Hypercholesterolemia and hypertriglyceridemia - He has underlying risk factors for CAD and CVA. His cholesterol and triglycerides remains high. Recommended to resume omega-3 fatty acids. Check hepatic function panel a month from now. Clinical course - - He was diagnosed with CML in December of 2011 - A bone marrow biopsy 01/02/2012 showed a hypercellular bone marrow (90%) with markedly expanded myeloid compartment, relative erythroid hypoplasia and decreased megakaryocytes, presence of storage iron and no significant increase in reticulin fibrosis. CBC with differential from the same [place] [address], [place] [address], monocytosis (5700), 6700 lymphocytes, 500 basophils and thrombocytopenia with platelets at [id number]. Metaphase cytogenetics showed presence of t(9;22) in all 20 metaphases. - Started on imatinib at 400 mg once daily on 02/12/2012. Rising bcr-abl transcript levels reported at 2.65% IS on 11/03/2012 (after 8 months of imatinib therapy). A bone marrow evaluation on 11/19/2012 (limited analysis as no core biopsy specimen was obtainable) showed a cellular bone marrow with trilineage hematopoiesis, 1% blasts, adequate megakaryocytes, presence of storage iron but no increase in ring sideroblasts. - Because of failure to achieve MMR and with rising transcript levels, he was switched to nilotinib 400 mg twice daily on 12/28/2012. - Development of rash on his face and arms and unspecified intolerance, he was switched to dasatinib 100 mg daily on 02/22/2013 after being on nilotinib for approximately 2 months. - On dasatinib therapy, bcr-abl transcript level dropped to 0.26 %IS on 11/29/2013 from 1.89 IS% on 02/26/2013 but thereafter the transcript levels started rising steadily reaching 1.61 IS% as of 11/11/2014. He never achieved a MMR on dasatinib despite being on it for 1 year and nine months. He was referred here for further evaluation in November of 2014. Kinase domain mutation analysis identified no mutations. - Rechallenged with nilotinib at 300 mg twice daily in Feb 2015. Serial measurements of p210 bcr-abl transcript levels were as follows on nilotinib - IS% was 1.34 in May of 2015, 2.16 in November of 2015 and 72.6 in February of 2016, consistent with failure of nilotinib. 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 - Initiated on bosutinib on Mar 2016 - initial response with drop in bcr-ab transcript levels to 3 in Jun 2016 but by Mar 2017 went up to 15.78. - He was enrolled on a clinical trial, ARIA 2915 15-875 A Randomized, Open-label, Phase 2 Trial of Ponatinib in Patients with Resistant Chronic Phase Chronic Myeloid Leukemia to Characterize the Efficacy and Safety of a Range of Doses on 05/21/2017 (day 1 of cycle 1). He was randomized to 45 mg daily. He has had three episodes of pancreatitis that required dose reduction or interruption. The last dose of the drug was 07/15/2019. He completed a total of 28 cycles on the clinical trial. Treatment course, dose modifications, response ( p210 bcr-abl transcripts levels by qRT-PCR), and complications while on ponatinib trial- 1) 04/24/2017 - 75.76% IS (prior to starting ponatinib at 45 mg on 05/21/2017) 2) 05/02/2017 - 70% IS 3) 08/12/2017 - 3.4% IS (~3 months of ponatinib at 45 mg) 4) 11/04/2017 - 1.2% IS ( ~ 6 months on ponatinib, dose reduced to 30 mg one daily from 45 mg on 09/20/2017 due to pancreatitis) 5) 01/27/2018 - 1.1% IS (on 30 mg of ponatinib since 09/20/2017) 6) 04/21/2018 - 0.85% IS (30 mg ponatinib) 7) 05/08/2018 - ponatinib dose reduced to 15 mg once daily per protocol 8) A bone marrow biopsy from 05/03/2019 showed normocellular marrow (50%) with trilineage hematopoiesis, decreased iron stores. Cytogenetics showed 46,XY,t(9;22)(q34;q11.2)[3]/46,XY[ 17], consistent with failure to achieve CCyR. BCR-ABL transcripts have been gradually increasing since decreased dose. Last level drawn on 03/2019 noted 9.5% IS. 9) 06/18/2019 - ponatinib dose increased to 30 mg daily 10) Hospitalized from 06/23/2019 to 06/25/2019 with pancreatitis (patient reports lipase elevated at 960). Ponatinib held on 06/23/2019 11) ED visit on 06/29/2019 for chest pain - CT chest negative for PE. Stress test was negative. 12) Resumed ponatinib at 30 mg on 07/09/2019 (held from 06/23/2019 to 07/08/2019) 13) He was hospitalized from 07/15/2019 to 07/19/2019 for pancreatitis - lipase elevated at 1966. Ponatinib was discontinued on 07/15/2019. - He underwent a bone marrow biopsy on 08/16/2019 that showed a normocellular marrow with trilineage hematopoiesis, 1% blasts and in complete cytogenetic remission (CCyR). 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 - A bone marrow transplant was deferred as long as it may be possible to maintain him in CCyR. He has a haploidentical brother and a well-matched unrelated donor. - He was started on pegylated interferon amber-2a on 12/14/2019 and discontinued on 01/27/2020 due to patient's poor compliance with monitoring. - His CML was being managed with hydroxyurea while waiting for enrollment in a clinical trial. - He was presented and consented for the clinical trial - ACTG 1920 20-998 Title: A phase 1b study of the pharmacokinetics, safety and efficacy of orally administered [id number] in subjects with refractory chronic myeloid leukemia (CML). He underwent a screening marrow on 05/03/2020 that showed CML in chronic phase (0% blasts) and identification of t(9;22) in all 20 metaphases. As the T315I was not checked as part of initial screening, his clinical trial date was deferred to 06/19/2020 to allow time for re-screening. BCR-ABL kinase domain mutation analysis from 05/29/2020 identified no mutations including T315I. Quantitative RT-PCT for p210 bcr-abl from 05/29/2021 showed levels at >50%IS. - He started the clinical trial on 06/19/2020.He underwent a follow up bone marrow biopsy on 09/15/2020 that showed complete cytogenetic remission. - He stopped taking the study drug on 10/03/2020 as he had misplaced it. Cycle 5 scheduled to start on 10/15/2020 was delayed due to elevated lipase. He was recently exposed to poison radha in September and broke out in rash around his left eye, face, trunk and chest for which he completed a short course of dexamethasone. - Three serial bone marrow biopsies done as part of the clinical trial protocol (09/15/2020, 12/22/2020 and 06/15/2021 ) shows him to be in CCyR. Quantitative RT-PCR for p210 bcr-abl level from 09/15/2020, 12/22/2020 and 06/15/2021 show steadily declining bcr-abl transcript levels. Review of system including interval history: Constitutional: No fever, anorexia or malaise. + chronic stable fatigue (rates it as 3-4/10 with 10 being the worst) Eyes: No change in vision, blurriness, diplopia, redness, or irritation. ENT: No mouth sores or bleeding gums; no hoarseness of voice. No epistaxis or other nasal problems. No changes in hearing, vertigo, or tinnitus. Respiratory: No coughing, wheezing, dyspnea at rest, exertional dyspnea, or hemoptysis. Cardiovascular: No anginal symptoms, palpitations, orthopnea, PND, syncopal events or presyncopal events. Gastrointestinal: No nausea, no vomiting, heartburn or acid reflux, constipation or abdominal cramping. Bowel habit is unchanged; and no melena or hematochezia. Genitourinary: No urgency, frequency, dysuria, or hematuria. Musculoskeletal: + stable chronic joint pains/arthritis. Unrestricted ambulation. Reports mild swelling and numbness in the little finger of right hand Skin: pruritic papular rash on chest Neurological: No syncope, near-syncope, or seizures; no headaches or alteration in sensorium or motor strength. Psychiatric: Memory, short term & manager exchange intact; no disturbance in sleep pattern and denies symptoms of depression. Endocrine: Negative for temperature intolerance, unusual sweating, or symptoms of glucose intolerance. Hematologic/Lymphatic: Negative for prolonged bleeding, easy bruising, and swollen nodes. No lower extremity edema. Allergic/Immunologic: No itching, or jaundice. Past medical and surgical history: - Chronic Phase CML - Hypertension - ADHD - Gastritis - Chronic diarrhea preceding his dx of CML and prior to starting imatinib - Morbid obesity - Psoriasiform dermatitis - Cholecystectomy - Tonsillectomy - Back Surgery - Right knee arthroscopy - chronic pruritis rash for > 10 years Current medication: Reviewed from [facility] and integrated in assessment and plan. fluocinonide (LIDEX) 0.05 % ointment Apply to affected areas of rash twice daily x 2 weeks, then once daily x 2 weeks. NOT for face, armpits, or groin omega-3 acid ethyl esters (LOVAZA) 1 gram capsule Take 2 capsules by mouth twice daily. insulin glargine,hum.rec.anlog (LANTUS SUBCUTANEOUS) Inject 30 Units subcutaneously once daily. Insulin Syringe-Needle U-100 1 mL 25 x 1 syrg Use 1 syringe once daily to administer peg-interferon dose. ibuprofen (MOTRIN) 800 mg tablet Social History: He is . 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 He does not smoke cigarettes and has not used any illicit drugs. He drinks alcoholic beverages occasionally. Family History: Father has CAD and had cardiac surgery, he also has DM. Still living Mother has DM. He has one brother is doing well. He has 2 children, both are doing well. He denies any prior exposure to toxic chemicals, radiation therapy, chemotherapy. Physical Examination: Vitals: BP 150/88 Pulse (!) 58 Temp 36.2 C (97.2 F) (Temporal) Resp 18 Wt 124.2 kg (273 lb 14.4 oz) SpO2 99% BMI 37.92 kg/m ECOG - 1 Gen: Awake, alert, oriented x 3, NAD, accompanied by his Skin: Scattered erythematous areas with papular rash on trunk (front, back and sides) - continues to improve Eyes: sclera anicteric Lungs: Normal chest expansion, clear breath sounds Heart: Normal rate and rhythm, no murmurs Abdomen: protuberant, soft, +BS- non-tender - spleen not appreciated but difficult due to body habitus Extremities: no edema Labs: CBC with differential reviewed from [facility] and integrated in assessment and plan. William Howell MD PhD MPH Associate Staff Hematologic Oncology and Blood Disorders Pager [phone] Date of service: 11/26/2021 documented in this encounter [facility] 11-30-2021 Miscellaneous Notes Called patient to let him know that wants him to get labs done at [facility]. Patient will have BCR/ABL p210 done. Patient verbalized understanding. documented in this encounter [facility] 11-26-2021 History of Present illness Narrative ACTG 1920 20-998 A phase 1b study of the pharmacokinetics, safety and efficacy of orally administered [id number] in subjects with refractory chronic myeloid leukemia (CML). Patient is here for screening for ACTG 1920 / IRB 20-998. 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 06/19/2020 Patient met all inclusion and exclusion criteria and deemed eligible to participate on the study by the sponsor 09/03/2021 Cycle 18 day 28 Patient met with research team, pleasant and engaged in conversation. Patient denies any side effects to report. Dr. Howell reviewed all labs and AE's. ECHO: 61% ejection fraction BMBx: scheduled for 11/29/2021 in IR EKG: QTcF 410, 398, 402 PE: ECO Ankle-brachial index: Left brachial 157/89 58 Left ankle 187/97 60 VS: 11/26/2021 Weight 124.2 kg (273 lb 14.4 oz) BSA 0 BMI 0 Temp 36.2 C (97.2 F) Pulse 58 (A) Resp 18 BP 150/88 PAST MEDICAL HISTORY Diagnosis Date Status CML (chronic myelocytic leukemia) (HCC) 12/2011 Active chronic phase not controlled Hypertension 09/14/2015 Active controlled without medication ADHD >10 years Active controlled without medication Gastritis Not active Chronic diarrhea ~2011 Not active Morbid obesity >10 years Active back pain >10 years Active controlled with medication chronic pruritic rash >10 years Active intermittently controlled without medication moderate upper septal asymmetric left ventricular hypertrophy 05/05/2017 Present floaters in both eyes (eye exam 05/05) [id number] Active no medication or treatment Diabetes 12/2019 Active controlled with medication Rash 11/2019 Active uncontrolled,medication to start 05/29/2020 PAST SURGICAL HISTORY Procedure Laterality Date BACK SURGERY HX Prior to 03/2012 L4 and L5 infusion SC ANESTH,KNEE JOINT; NOS right Prior to 03/2012Prior to 03/2012 right knee REMOVAL GALLBLADDER Prior to 03/2012 TONSILLECTOMY HX Prior to 03/2012 Social history: Patient has been for 26 years with adult children. Patient denies illegal drug use and drinks alcohol very rarely. Patient is a non-smoker. Transfusion History: None History of Prior Medical Treatments for CML: Gleevec 02/12/201211/2012 Nilotinib 12/2012 Dasatinib 02/2013 Nilotinib 12/2014 -- 03/2016 Bosutinib 03/201605/02/2017 [facility] 2915 15-875 trial of Ponatinib 05/21/2017 - 07/15/2019 pegylated interferon amber-2a on 12/14/2019 - 01/27/2020 BCR-ABL mutation history: bcr-abl transcript levels reported at 2.65% IS on 11/03/2012 bcr-abl transcript levels reported 1.89% IS on 02/26/2013 bcr-abl transcript levels reported 0.26% IS on 11/29/2013 bcr-abl transcript levels reported 1.34% IS in 05/2015 2.16 in November of 2015 72.6 in February of 2016 bcr-ab transcript levels to 3 in Jun went up to 15.78. 04/24/2017 - 75.76% IS (prior to starting ponatinib at 45 mg on 05/21/2017) 05/02/2017 - 70% IS 08/12/2017 - 3.4% IS (~3 months of ponatinib at 45 mg) 11/04/2017 - 1.2% IS 01/27/2018 - 1.1% IS 04/21/2018 - 0.85% IS (30 mg ponatinib) BCR-ABL transcripts have been gradually increasing since decreased dose of Ponatinib. Last level drawn on 03/2019 noted 9.5% IS. Medications: NKA Medication Dose Start Date Stop Date Comments Ibuprofen 800 mg once daily as needed per patient 10/2015 For general body aches Insulin Lantus 35 units daily Per patient 12/2019 For diabetes Hydrea 500 mg 2 capsules by mouth once daily 12/2019 ~ 04/17/2020 For leukocytosis Hydrea 500 mg capsules orally twice a day 05/01/2020 05/11/2020 increased to 05/11/2020 For leukocytosis Hydrea (2) 500 mg capsules orally 2x/day 05/11/2020 05/17/2020 For leukocytosis Hydrea (2) 500 mg capsules orally 3x/day 05/17/2020 05/22/2020 For leukocytosis Hydrea Tapering dose: (2) 500 mg capsules orally 2x/day for 3 days. Then (2) 500 mg capsules orally once a day for 2 days then stop. 05/22/2020 05/26/2020 For leukocytosis Kenalog cream Apply 2x/day to affected areas. 05/29/2020 For rash Hydrea (2) 500 mg capsules orally 2x/day 06/12/2020 06/16/2020 For leukocytosis Hydrea (2) 500 mg capsules orally 3x/day 06/16/2020 06/17/2020 For leukocytosis Lovaza (2) 1gm capsules orally 2x/day 06/22/2020 on hold restarted 09/03/2021 Hypertriglyceridemia Advil 400 mg orally every 6 hours as needed 07/10/2020 For headache Decadron 4 mg orally 10/04/2020 10/06/2020 For poison radha Lidex ointment 0.05% Apply twice daily for 2 weeks, then once daily for 2 weeks For rash. Do not apply to face, armpits or groin Colace 100 mg orally once a day as needed 06/07/2021 Constipation Toxicities: CTCAE V. 5 SCREENING all predate therapy, are chronic conditions and will not be actively followed unless they worsen during the clinical trial. Fasting labs Day -28 06/05/2020 Leukocytosis Grade 3 UNRELATED Start date: 05/01/2020. Resolved: ongoing. Drugs used to treat: yes. Outcome: Still present. Hypertension:Stage Prehypertension Grade 1 UNRELATED Start date:05/01/2020. Resolved: ongoing. Drugs used to treat: none. Outcome: Still present. Hyperglycemia Grade 1 UNRELATED Start date: 05/01/2020. Resolved: ongoing. Drugs used to treat: none. Outcome: Still present Hypertriglyceridemia Grade 1 UNRELATED Start date: 05/22/2020. Resolved: ongoing. Drugs used to treat: none. Outcome: Still present. Rash on trunk of body Grade 1 UNRELATED Start date: 05/29/2020. Resolved: ongoing. Drugs used to treat: yes. Outcome: Still present. Fasting labs Day -7 06/12/2020 Aspartate aminotransferase increased Grade 1 UNRELATED Start date: 06/12/2020. Resolved: ongoing. Drugs used to treat: none. Outcome: Still present. Hyperglycemia Grade 2 UNRELATED Start date: 06/05/2020. Resolved: ongoing. Drugs used to treat:yes. Outcome: Still present. Hypertriglyceridemia Grade 2 UNRELATED Start date: 06/12/2020. Resolved: ongoing. Drugs used to treat: none. Outcome: Still present. Fasting labs 11/26/2021: Alkaline phosphatase Grade 1 Unrelated (prior to drug)Start date: 06/19/2020. Resolved: ongoing. Drugs used to treat:no Outcome:present intermittently. Hyponatremia Grade 1 Unrelated (prior to drug) Start date 06/19/2020 Resolved:ongoing.Drugs used to treat: no. Outcome: present intermittently Hypertension Grade 1 Unrelated Start date 08/14/2020 Resolved:ongoing. Drugs used to treat:no. Outcome: still present. Hypertension Grade 2 Unrelated Start date 06/11/2021 Resolved:ongoing. Drugs used to treat:no. Outcome: still present intermittently. Cholesterol high Grade 1 Unrelated Start date: 10/13/2020esolved: ongoing. Drugs used to treat: none. Outcome: still present. Constipation Grade 1 Unrelated Start date:06/07/2021.Resolved:ongoing. Drugs used to treat: yes. Outcome: present intermittently. Fatigue Grade 1 Unrelated Start date:06/07/2021.Resolved:ongoing. Drugs used to treat: no. Outcome: present intermittently. Lipase Grade 1 Possibly related Start date:09/03/2021 Resolved: ongoing Drugs used to treat: no. Outcome:present Hypoalbuminemia Grade 1 Unrelated Start date:11/26/2021 Resolved: ongoing Drugs used to treat: no. Outcome: present Resolved AE's: Hypertriglyceridemia Grade 3 Unrelated(prior to drug) Start date: 06/19/2020. Resolved: 06/26/2020 Drugs used to treat: none. Outcome resolved to baseline day -28 Amylase Grade 1 Possibly related Start date 06/26/20 Resolved:07/03/2020. Drugs used to treat: no. Outcome: resolved. Lipase Grade 3 Possibly related Start date 06/26/20 Resolved:07/03/2020.Drugs used to treat: no. Outcome: resolved. Lipase Grade 1 Possibly related Start date:07/13/2020 Resolved: 07/17/2020 Drugs used to treat: no. Outcome:resolved. Constipation Grade 1 Unrelated Startdate:06/22/20.Resolved:06/23/19. Drugs used to treat: no. Outcome: resolved. Hypoalbuminemia Grade 1 Unrelated Startdate:06/22/20.Resolved:. Drugs used to treat: no. Outcome: resolved. Platelet count decreased Grade 1 Possibly related Startdate:07/13/20.Resolved:. Drugs used to treat: no. Outcome: resolved. Headache Grade 1 Possibly related Startdate:07/10/2020.Resolved:08/15/19. Drugs used to treat:yes. Outcome: resolved. Lipase Grade 3 Possibly related Start date 08/03/2020 Resolved:08/14/2020.Drugs used to treat: no. Outcome: resolved. Amylase Grade 1 Possibly related Start date 08/03/2020 Resolved:08/14/2020.Drugs used to treat: no. Outcome: resolved. Heart palpitation Grade 1 Unrelated Start date: 08/25/2020. Resolved:08/27/2020. Drugs used to treat:no. Outcome: resolved. Rash Grade 1 Unrelated Start date: 10/04/2020 Resolved:10/06/2020. Drugs used to treat: yes. Outcome:resolved Hyperglycemia Grade 3 Unrelated Start date: 10/13/2020 Resolved: 10/20/2020 Drugs used to treat:yes. Outcome:resolved to Grade 2. Hyponatremia Grade 1 Unrelated (prior to drug) Start date 06/19/2020 Resolved:10/20/2020.Drugs used to treat: no. Outcome: Resolved. Alkaline phosphatase Grade 1 Unrelated (prior to drug)Start date: 06/19/2020. Resolved: 10/27/2020. Drugs used to treat:no Outcome:Resolved. Alanine aminotransferase increased Grade 1 Unrelated Start date: 10/13/2020esolved: 10/20/2020. Drugs used to treat: none. Outcome: Resolved. Lipase increased Grade 1 Possibly related Start date: 10/13/2020esolved: 10/27/2020. Drugs used to treat: none. Outcome: Resolved to normal. Lipase increased Grade 2 Possibly related Start date: 10/20/2020esolved:10/27/2020. Drugs used to treat: none. Outcome: Resolved to normal. Hypertriglyceridemia Grade 3 Possibly related Start date: 10/13/2020. Resolved:10/20/2020 Drugs used to treat: none. Outcome:Resolved to Grade 2. Hypertriglyceridemia Grade 2 Possibly related Start date: 10/20/2020. Resolved:10/27/2020 Drugs used to treat: none. Outcome:Resolved to grade 1 screening. Hypoalbuminemia Grade 1 Unrelated Start date: 10/20/2020. Resolved:11/23/2020 Drugs used to treat: none. Outcome: resolved. Rash Possibly related bilateral lower abdomen, left upper chest, behind both knees, and right scapula area. Grade 1 Unrelated Start date: 11/07/2020 Resolved:02/07/2021. Drugs used to treat:yes. Outcome: resolved. Patients last dose of study drug was 11/25/2021. Next dose due on 11/27/2021 Re-educated patient on how to complete the medication diary. Educated patient how to take the drug and how to transport and store drug going forward it can be stored at room temperature. Instructed patient that he will need to return drug and all bottles/unused medication at his next visit. Patient has 3 prong medal folder with drug information, contact information for research team, after hours number. Patient verbalized understanding of all information provided. Patient returned diary from previous visit completed. New diary given. Patient returned: 3 bottles, 2 empty and 1 full unopened bottle of 60 pills. The count is inaccurate, return count should have been 54 pills. Patient made aware that he missed 2 days of drug and he replied I thought I took the medicine but I wasn't sure so I didn't want to take too much Encouraged patient to keep drug diary, pen and medicine together to document at the time he takes the drug. Patient was given drug: yes. 3 bottles of drug. 60 pills per bottle of 10 mg pills. To be dosed with 30 mg of HQP on 11/27/2021 every other day. Lot# [id number] Patient presented today to participate on the trial ACTG 1920 / IRB 20-998. Patient signed consent previously on 05/29/2020 with nurse present prior to having ANY procedures done. Copy given to the patient. Patient had labs drawn, and then met with the clinical team. Patient understands that he must call nurse or MD prior to taking any new medications as well as to stopping any medications. Patient also understands to call nurse/MD should she have any new medical issues arise and/or goes to the hospital for any reason. Patient is aware to monitor for fevers and to call and/or go to the nearest emergency room for temperatures of 100.4 or greater. 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 Patient understands that this participation is voluntary and that he may withdraw at any time during the trial. documented in this encounter [facility] 11-26-2021 Nurse Note Additional intake questions: Has the patient had fever, nausea, vomiting, diarrhea, constipation, fatigue for > 1 week? No Does the patient have a decreased appetite? No Does patient want to see a Car Tracer? No (yes to any of above refer patient to schedulers for dietitian appointment) ) Does patient have any new or increased numbness or tingling of extremities? No Is patient interested in fertility information? No Does patient need any prescription refills? No Does patient have an advanced directive in place? No, Patient referred to [facility] Electronically Signed By: Marcelino Finney LPN documented in this encounter [facility] 09-11-2021 Miscellaneous Notes Returned patients call about starting pravastatin while on the study ACTG 192. Desean Dominique consulted and pravastatin does not interact with the study drug. Patient aware that is aware and that advised for the patient not start taking lovaza. Patient verbalized understanding. documented in this encounter [facility] 09-07-2021 Miscellaneous Notes Spoke to pt and scheduled biopsy for 11/29/21 per triage form. RADIOLOGIST REQUEST / APPROVAL FORM STAFF RADIOLOGIST:Dr Domenico MD PROCEDURE TO BE DONE UNDER: CT PROCEDURE REQUESTED: CORE Requested PROCEDURE: Approved TIME SLOT NEEDED: 1 Hour NOTES: bone marrow biopsy SPECIAL LABS/ PROCESSING: none Pre-procedure labs: CBC: not needed INR: not needed COVID: not needed SIR Bleeding risk category for this procedure: low low risk. Reference from [facility] [employer]: [email or web address].[email or web address].[email or web address] STAFF SIGNATURE: Katie Ortiz DO DATE: September 04, 2021 TIME: 4:44 PM BX. COORDINATOR INFORMATION LAB RESULTS: PT INR (no units) Date Value 06/11/2021 1.0 INR (no units) Date Value 09/03/2021 1.0 APTT (sec) Date Value 09/03/2021 23.6 06/11/2021 25.5 Platelet Count (k/uL) Date Value 09/03/2021 267 06/11/2021 275 Current Outpatient Medications Medication Sig meloxicam (MOBIC) 7.5 mg tablet meloxicam 7.5 mg tablet fluocinonide (LIDEX) 0.05 % ointment Apply to affected areas of rash twice daily x 2 weeks, then once daily x 2 weeks. NOT for face, armpits, or groin omega-3 acid ethyl esters (LOVAZA) 1 gram capsule Take 2 capsules by mouth twice daily. insulin glargine,hum.rec.anlog (LANTUS SUBCUTANEOUS) Inject 30 Units subcutaneously once daily. Insulin Syringe-Needle U-100 1 mL 25 x 1 syrg Use 1 syringe once daily to administer peg-interferon dose. ibuprofen (MOTRIN) 800 mg tablet Current Facility-Administered Medications Medication Dose Route Frequency sodium chloride 0.9 % (flush) 10 mL (BD POSIFLUSH) 10 mL INTRAVENOUS DIRECTED PRN sodium chloride 0.9 % (flush) 10 mL (BD POSIFLUSH) 10 mL INTRAVENOUS DIRECTED PRN sodium chloride 0.9 % (flush) 10 mL (BD POSIFLUSH) 10 mL INTRAVENOUS DIRECTED PRN sodium chloride 0.9 % (flush) 10 mL (BD POSIFLUSH) 10 mL INTRAVENOUS DIRECTED PRN perflutren lipid microspheres 1.3 mL in NaCl (PF) 0.9% 10 mL injection (DEFINITY) INTRAVENOUS DIRECTED PRN perflutren lipid microspheres 1.3 mL in NaCl (PF) 0.9% 10 mL injection (DEFINITY) INTRAVENOUS DIRECTED PRN sodium chloride 0.9 % (flush) 10 mL (BD POSIFLUSH) 10 mL INTRAVENOUS DIRECTED PRN ALLERGIES No Known Allergies FILMS SENT TO WORKSTATION: GUIDELINES FOR HOLDING ANTI-PLATELET AND ANTI- COAGULATION THERAPY: none on file NURSE SIGNATURE: Emily Anthony LPN DATE: September 04, 2021 TIME: 12:08 PM STAFF-INITIATED RADIOLOGY BIOPSY / ASPIRATION / DRAIN REQUEST FORM Date: September 04, 2021 Time: 10:31 AM PATIENT CONTACT INFORMATION: Best way to reach patient [phone] SCHEDULING: Date: 11/29/2021 (Specific requests must be greater than 10 business days from the date of request) RADIOLOGY SERVICE GROUP (Abdominal / Thoracic / MSK / Neuro): Bone- Biopsy Site: bone marrow biopsy SPECIFICS OF THE REQUEST (Please be as detailed as possible): bone marrow biopsy SPECIAL REQUESTS: TISSUE SAMPLE, LABWORK: Special Requests: IRB 20-998 MEDICAL DIAGNOSIS: CML (i.e. Known primary cancer or suspected diagnosis) IMAGING STUDY AND DATE THAT IS THE BASIS OF THE REQUEST: 11/29/2021 ct guided bone marrow biopsy (Note: Requests for random organ biopsies, specifically liver and kidney random biopsies do not need imaging.) IMAGING: n/a (If the imaging was obtained outside the [facility] system, PLEASE upload for review prior to approval.) Note to all persons requesting biopsies: All biopsy requests will be scheduled as quickly as possible, based on the clinical urgency, availability of appointment times, the need to hold anti-thrombolytic therapy (aspirin and other blood thinners) and the patient s schedule, including the need for an available uke driver. If a percutaneous biopsy or drainage is not felt to be safe or an alternative method for establishing a diagnosis is possible, this will be discussed directly with the requesting physician. documented in this encounter [facility] 09-06-2021 Miscellaneous Notes Called and spoke to the patient about the return count of study drug from 09/03/2021. Patient returned 39 pills if study drug and return count should have been 54. Missing 15 pills or 5 days of drug. Patient is not sure how that could have happened Patient denies dropping any pills or placing in another pill bottle. Patient continues to complete drug diary correctly. Advised patient to be careful with doing because the pills are very very small and not double check he is dosing with only 3 pills. Patient verbalized understanding. documented in this encounter [facility] 09-03-2021 History of Present illness Narrative Clinical Trial Informed Re-Consent IRB# ACTG 1920 [id number] Title: A phase 1b study of the pharmacokinetics, safety and efficacy of orally administered [id number] in subjects with refractory chronic myeloid leukemia (CML) Patient seen today to obtain clinical trial informed re-consent per consent version 3.0 dated 08/15/2021 approval date. Clinical assembler steam and gas turbine reviewed the updated consent with patient and discussed all changes including to dose within 30 minutes of a meal and the added cohort of acute blast phase treatment regimen. Roles of the clinical trial personnel involved and the financial responsibilities of the patient regarding procedures and medications were reviewed again. The patient also confirmed previous understanding of the importance of effective contraception use during and following completion of active therapy for spouse is 2+ years post menopausal and agrees to the following methods: male condom. All study related questions regarding the updated consent have been addressed or answered at this time. Patient verbalizes understanding of all aforementioned information and voluntarily agrees to continue participation in this clinical trial. 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 Patient given copy of signed informed consent. Time: 1140 documented in this encounter [facility] 09-03-2021 History of Present illness Narrative ACTG 1920 20-998 A phase 1b study of the pharmacokinetics, safety and efficacy of orally administered [id number] in subjects with refractory chronic myeloid leukemia (CML). Patient is here for screening for ACTG 1920 / IRB 20-998. 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 06/19/2020 Patient met all inclusion and exclusion criteria and deemed eligible to participate on the study by the sponsor 09/03/2021 Cycle 15 day 28 Patient met with research team, pleasant and engaged in conversation. Patient denies any side effects to report. Dr. Howell reviewed all labs and AE's. ECHO: 61% ejection fraction BMBx: not required this visit EKG: QTcF 409, 406, 413 PE: ECO Ankle-brachial index: Left brachial 146/80 Left ankle 168/92 VS: 09/03/2021 Weight 124.3 kg (274 lb) Height 181 cm (5' 11.26 ) BSA 2.5 BMI 37.94 Temp 36.7 C (98 F) Pulse 60 Resp 20 BP 137/80 PAST MEDICAL HISTORY Diagnosis Date Status CML (chronic myelocytic leukemia) (HCC) 12/2011 Active chronic phase not controlled Hypertension 09/14/2015 Active controlled without medication ADHD >10 years Active controlled without medication Gastritis Not active Chronic diarrhea ~2011 Not active Morbid obesity >10 years Active back pain >10 years Active controlled with medication chronic pruritic rash >10 years Active intermittently controlled without medication moderate upper septal asymmetric left ventricular hypertrophy 05/05/2017 Present floaters in both eyes (eye exam 05/05) [id number] Active no medication or treatment Diabetes 12/2019 Active controlled with medication Rash 11/2019 Active uncontrolled,medication to start 05/29/2020 PAST SURGICAL HISTORY Procedure Laterality Date BACK SURGERY HX Prior to 03/2012 L4 and L5 infusion SC ANESTH,KNEE JOINT; NOS right Prior to 03/2012Prior to 03/2012 right knee REMOVAL GALLBLADDER Prior to 03/2012 TONSILLECTOMY HX Prior to 03/2012 Social history: Patient has been for 26 years with adult children. Patient denies illegal drug use and drinks alcohol very rarely. Patient is a non-smoker. Transfusion History: None History of Prior Medical Treatments for CML: Gleevec 02/12/201211/2012 Nilotinib 12/2012 Dasatinib 02/2013 Nilotinib 12/2014 -- 03/2016 Bosutinib 03/201605/02/2017 [facility] 2915 15-875 trial of Ponatinib 05/21/2017 - 07/15/2019 pegylated interferon amber-2a on 12/14/2019 - 01/27/2020 BCR-ABL mutation history: bcr-abl transcript levels reported at 2.65% IS on 11/03/2012 bcr-abl transcript levels reported 1.89% IS on 02/26/2013 bcr-abl transcript levels reported 0.26% IS on 11/29/2013 bcr-abl transcript levels reported 1.34% IS in 05/2015 2.16 in November of 2015 72.6 in February of 2016 bcr-ab transcript levels to 3 in Jun went up to 15.78. 04/24/2017 - 75.76% IS (prior to starting ponatinib at 45 mg on 05/21/2017) 05/02/2017 - 70% IS 08/12/2017 - 3.4% IS (~3 months of ponatinib at 45 mg) 11/04/2017 - 1.2% IS 01/27/2018 - 1.1% IS 04/21/2018 - 0.85% IS (30 mg ponatinib) BCR-ABL transcripts have been gradually increasing since decreased dose of Ponatinib. Last level drawn on 03/2019 noted 9.5% IS. Medications: NKA Medication Dose Start Date Stop Date Comments Ibuprofen 800 mg once daily as needed per patient 10/2015 For general body aches Insulin Lantus 35 units daily Per patient 12/2019 For diabetes Hydrea 500 mg 2 capsules by mouth once daily 12/2019 ~ 04/17/2020 For leukocytosis Hydrea 500 mg capsules orally twice a day 05/01/2020 05/11/2020 increased to 05/11/2020 For leukocytosis Hydrea (2) 500 mg capsules orally 2x/day 05/11/2020 05/17/2020 For leukocytosis Hydrea (2) 500 mg capsules orally 3x/day 05/17/2020 05/22/2020 For leukocytosis Hydrea Tapering dose: (2) 500 mg capsules orally 2x/day for 3 days. Then (2) 500 mg capsules orally once a day for 2 days then stop. 05/22/2020 05/26/2020 For leukocytosis Kenalog cream Apply 2x/day to affected areas. 05/29/2020 For rash Hydrea (2) 500 mg capsules orally 2x/day 06/12/2020 06/16/2020 For leukocytosis Hydrea (2) 500 mg capsules orally 3x/day 06/16/2020 06/17/2020 For leukocytosis Lovaza (2) 1gm capsules orally 2x/day 06/22/2020 on hold restarted 09/03/2021 Advil 400 mg orally every 6 hours as needed 07/10/2020 For headache Decadron 4 mg orally 10/04/2020 10/06/2020 For poison radha Lidex ointment 0.05% Apply twice daily for 2 weeks, then once daily for 2 weeks For rash. Do not apply to face, armpits or groin Colace 100 mg orally once a day as needed 06/07/2021 Constipation Toxicities: CTCAE V. 5 SCREENING all predate therapy, are chronic conditions and will not be actively followed unless they worsen during the clinical trial. Fasting labs Day -28 06/05/2020 Leukocytosis Grade 3 UNRELATED Start date: 05/01/2020. Resolved: ongoing. Drugs used to treat: yes. Outcome: Still present. Hypertension:Stage Prehypertension Grade 1 UNRELATED Start date:05/01/2020. Resolved: ongoing. Drugs used to treat: none. Outcome: Still present. Hyperglycemia Grade 1 UNRELATED Start date: 05/01/2020. Resolved: ongoing. Drugs used to treat: none. Outcome: Still present Hypertriglyceridemia Grade 1 UNRELATED Start date: 05/22/2020. Resolved: ongoing. Drugs used to treat: none. Outcome: Still present. Rash on trunk of body Grade 1 UNRELATED Start date: 05/29/2020. Resolved: ongoing. Drugs used to treat: yes. Outcome: Still present. Fasting labs Day -7 06/12/2020 Aspartate aminotransferase increased Grade 1 UNRELATED Start date: 06/12/2020. Resolved: ongoing. Drugs used to treat: none. Outcome: Still present. Hyperglycemia Grade 2 UNRELATED Start date: 06/05/2020. Resolved: ongoing. Drugs used to treat:yes. Outcome: Still present. Hypertriglyceridemia Grade 2 UNRELATED Start date: 06/12/2020. Resolved: ongoing. Drugs used to treat: none. Outcome: Still present. Fasting labs 09/03/2021 Alkaline phosphatase Grade 1 Unrelated (prior to drug)Start date: 06/19/2020. Resolved: ongoing. Drugs used to treat:no Outcome:present intermittently. Hyponatremia Grade 1 Unrelated (prior to drug) Start date 06/19/2020 Resolved:ongoing.Drugs used to treat: no. Outcome: present intermittently Hypertension Grade 1 Unrelated Start date 08/14/2020 Resolved:ongoing. Drugs used to treat:no. Outcome: still present. Cholesterol high Grade 1 Unrelated Start date: 10/13/2020esolved: ongoing. Drugs used to treat: none. Outcome: still present. Constipation Grade 1 Unrelated Start date:06/07/2021.Resolved:ongoing. Drugs used to treat: yes. Outcome: present intermittently. Fatigue Grade 1 Unrelated Start date:06/07/2021.Resolved:ongoing. Drugs used to treat: no. Outcome: present intermittently. Lipase Grade 1 Possibly related Start date:09/03/2021 Resolved: ongoing Drugs used to treat: no. Outcome: present Resolved AE's: Hypertriglyceridemia Grade 3 Unrelated(prior to drug) Start date: 06/19/2020. Resolved: 06/26/2020 Drugs used to treat: none. Outcome resolved to baseline day -28 Amylase Grade 1 Possibly related Start date 06/26/20 Resolved:07/03/2020. Drugs used to treat: no. Outcome: resolved. Lipase Grade 3 Possibly related Start date 06/26/20 Resolved:07/03/2020.Drugs used to treat: no. Outcome: resolved. Lipase Grade 1 Possibly related Start date:07/13/2020 Resolved: 07/17/2020 Drugs used to treat: no. Outcome:resolved. Constipation Grade 1 Unrelated Startdate:06/22/20.Resolved:06/23/19. Drugs used to treat: no. Outcome: resolved. Hypoalbuminemia Grade 1 Unrelated Startdate:06/22/20.Resolved:. Drugs used to treat: no. Outcome: resolved. Platelet count decreased Grade 1 Possibly related Startdate:07/13/20.Resolved:. Drugs used to treat: no. Outcome: resolved. Headache Grade 1 Possibly related Startdate:07/10/2020.Resolved:08/15/19. Drugs used to treat:yes. Outcome: resolved. Lipase Grade 3 Possibly related Start date 08/03/2020 Resolved:08/14/2020.Drugs used to treat: no. Outcome: resolved. Amylase Grade 1 Possibly related Start date 08/03/2020 Resolved:08/14/2020.Drugs used to treat: no. Outcome: resolved. Heart palpitation Grade 1 Unrelated Start date: 08/25/2020. Resolved:08/27/2020. Drugs used to treat:no. Outcome: resolved. Rash Grade 1 Unrelated Start date: 10/04/2020 Resolved:10/06/2020. Drugs used to treat: yes. Outcome:resolved Hyperglycemia Grade 3 Unrelated Start date: 10/13/2020 Resolved: 10/20/2020 Drugs used to treat:yes. Outcome:resolved to Grade 2. Hyponatremia Grade 1 Unrelated (prior to drug) Start date 06/19/2020 Resolved:10/20/2020.Drugs used to treat: no. Outcome: Resolved. Alkaline phosphatase Grade 1 Unrelated (prior to drug)Start date: 06/19/2020. Resolved: 10/27/2020. Drugs used to treat:no Outcome:Resolved. Alanine aminotransferase increased Grade 1 Unrelated Start date: 10/13/2020esolved: 10/20/2020. Drugs used to treat: none. Outcome: Resolved. Lipase increased Grade 1 Possibly related Start date: 10/13/2020esolved: 10/27/2020. Drugs used to treat: none. Outcome: Resolved to normal. Lipase increased Grade 2 Possibly related Start date: 10/20/2020esolved:10/27/2020. Drugs used to treat: none. Outcome: Resolved to normal. Hypertriglyceridemia Grade 3 Possibly related Start date: 10/13/2020. Resolved:10/20/2020 Drugs used to treat: none. Outcome:Resolved to Grade 2. Hypertriglyceridemia Grade 2 Possibly related Start date: 10/20/2020. Resolved:10/27/2020 Drugs used to treat: none. Outcome:Resolved to grade 1 screening. Hypoalbuminemia Grade 1 Unrelated Start date: 10/20/2020. Resolved:11/23/2020 Drugs used to treat: none. Outcome: resolved. Rash Possibly related bilateral lower abdomen, left upper chest, behind both knees, and right scapula area. Grade 1 Unrelated Start date: 11/07/2020 Resolved:02/07/2021. Drugs used to treat:yes. Outcome: resolved. Patients last dose of study drug was 09/02/2021. Next dose due on 09/04/2021 Re-educated patient on how to complete the medication diary. Educated patient how to take the drug and how to transport and store drug going forward it can be stored at room temperature. Instructed patient that he will need to return drug and all bottles/unused medication at his next visit. Patient has 3 prong medal folder with drug information, contact information for research team, after hours number. Patient verbalized understanding of all information provided. Patient returned diary from previous visit completed. New diary given. Patient returned: 3 bottles, 2 empty and 1 with 39 pills. The count is accurate. Patient was given drug: yes. 3 bottles of drug. 60 pills per bottle of 10 mg pills. To be dosed with 30 mg of HQP on 09/04/2021 Lot# [id number] Patient presented today to participate on the trial ACT 1920 / IRB 20-998. Patient signed consent previously on 05/29/2020 with nurse present prior to having ANY procedures done. Copy given to the patient. Patient had labs drawn, and then met with the clinical team. Patient understands that he must call nurse or MD prior to taking any new medications as well as to stopping any medications. Patient also understands to call nurse/MD should she have any new medical issues arise and/or goes to the hospital for any reason. Patient is aware to monitor for fevers and to call and/or go to the nearest emergency room for temperatures of 100.4 or greater. 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 Patient understands that this participation is voluntary and that he may withdraw at any time during the trial. documented in this encounter [facility] Evaluation note Diagnosis CML (chronic myeloid leukemia) (HCC)- Primary Chronic myeloid leukemia, without mention of having achieved remission [facility] CML (chronic myeloid leukemia) (HCC) Chronic myeloid leukemia, without mention of having achieved remission [facility] CML (chronic myeloid leukemia) (HCC)- Primary Chronic myeloid leukemia, without mention of having achieved remission CML (chronic myeloid leukemia) (HCC) Chronic myeloid leukemia, without mention of having achieved remission [facility] CML (chronic myeloid leukemia) (HCC)- Primary Chronic myeloid leukemia, without mention of having achieved remission CML (chronic myeloid leukemia) (HCC) Chronic myeloid leukemia, without mention of having achieved remission [facility] CML (chronic myeloid leukemia) (HCC)- Primary Chronic myeloid leukemia, without mention of having achieved remission CML (chronic myeloid leukemia) (HCC) Chronic myeloid leukemia, without mention of having achieved remission [facility] CML (chronic myeloid leukemia) (HCC)- Primary Chronic myeloid leukemia, without mention of having achieved remission CML (chronic myeloid leukemia) (HCC) Chronic myeloid leukemia, without mention of having achieved remission [facility] CML (chronic myelocytic leukemia) (HCC)- Primary Chronic myeloid leukemia, without mention of having achieved remission [facility] Diagnosis CML (chronic myeloid leukemia) (HCC)- Primary Chronic myeloid leukemia, without mention of having achieved remission [facility] Diagnosis CML (chronic myelocytic leukemia) (HCC)- Primary Chronic myeloid leukemia, without mention of having achieved remission [facility] Diagnosis CML (chronic myeloid leukemia) (HCC)- Primary Chronic myeloid leukemia, without mention of having achieved remission [facility] Diagnosis CML (chronic myeloid leukemia) (HCC)- Primary Chronic myeloid leukemia, without mention of having achieved remission [facility] Diagnosis CML (chronic myeloid leukemia) (HCC)- Primary Chronic myeloid leukemia, without mention of having achieved remission CML (chronic myeloid leukemia) (HCC) Chronic myeloid leukemia, without mention of having achieved remission [facility] CML (chronic myeloid leukemia) (HCC)- Primary Chronic myeloid leukemia, without mention of having achieved remission CML (chronic myeloid leukemia) (HCC) Chronic myeloid leukemia, without mention of having achieved remission [facility] Diagnosis CML (chronic myelocytic leukemia) (HCC)- Primary Chronic myeloid leukemia, without mention of having achieved remission CML (chronic myeloid leukemia) (HCC) Chronic myeloid leukemia, without mention of having achieved remission [facility] Diagnosis Uncontrolled type 2 diabetes mellitus with hyperglycemia (HCC)- Primary Mixed hyperlipidemia CML (chronic myeloid leukemia) (HCC) Chronic myeloid leukemia, without mention of having achieved remission [facility] Diagnosis CML (chronic myeloid leukemia) (HCC)- Primary Chronic myeloid leukemia, without mention of having achieved remission CML (chronic myeloid leukemia) (HCC) Chronic myeloid leukemia, without mention of having achieved remission [facility] Chronic myeloid leukemia (HCC)- Primary Chronic myeloid leukemia, without mention of having achieved remission CML (chronic myeloid leukemia) (HCC) Chronic myeloid leukemia, without mention of having achieved remission [facility] Diagnosis CML (chronic myeloid leukemia) (HCC)- Primary Chronic myeloid leukemia, without mention of having achieved remission CML (chronic myeloid leukemia) (HCC) Chronic myeloid leukemia, without mention of having achieved remission [facility] Diagnosis CML (chronic myelocytic leukemia) (HCC)- Primary Chronic myeloid leukemia, without mention of having achieved remission [facility]* Diagnosis Type 2 diabetes mellitus with hyperglycemia, with long-term current use of insulin (HCC)- Primary Primary hypertension Unspecified essential hypertension Mixed hyperlipidemia [facility]* Diagnosis CML (chronic myeloid leukemia) (HCC)- Primary Chronic myeloid leukemia, without mention of having achieved remission [facility] Diagnosis Chronic myeloid leukemia (HCC)- Primary Chronic myeloid leukemia, without mention of having achieved remission [facility]* Diagnosis Uncontrolled type 2 diabetes mellitus with hyperglycemia (HCC) [facility] Diagnosis CML (chronic myeloid leukemia) (HCC)- Primary Chronic myeloid leukemia, without mention of having achieved remission [facility] Diagnosis CML (chronic myeloid leukemia) (HCC)- Primary Chronic myeloid leukemia, without mention of having achieved remission [facility] Diagnosis CML (chronic myelocytic leukemia) (HCC)- Primary Chronic myeloid leukemia, without mention of having achieved remission CML (chronic myeloid leukemia) (HCC) Chronic myeloid leukemia, without mention of having achieved remission [facility]* Diagnosis Type 2 diabetes mellitus with hyperglycemia, with long-term current use of insulin (HCC)- Primary Primary hypertension Unspecified essential hypertension Mixed hyperlipidemia CML (chronic myeloid leukemia) (HCC) Chronic myeloid leukemia, without mention of having achieved remission [facility] Diagnosis CML (chronic myeloid leukemia) (HCC)- Primary Chronic myeloid leukemia, without mention of having achieved remission [facility]* Diagnosis CML (chronic myeloid leukemia) (HCC)- Primary Chronic myeloid leukemia, without mention of having achieved remission [facility]* Diagnosis CML (chronic myelocytic leukemia) (HCC)- Primary Chronic myeloid leukemia, without mention of having achieved remission [facility]* Diagnosis CML (chronic myelocytic leukemia) (HCC)- Primary Chronic myeloid leukemia, without mention of having achieved remission [facility]* Diagnosis CML (chronic myeloid leukemia) (HCC)- Primary Chronic myeloid leukemia, without mention of having achieved remission [facility]* Diagnosis Chronic myeloid leukemia (HCC)- Primary Chronic myeloid leukemia, without mention of having achieved remission [facility] noteNo assessment information availableGreene [facility] Work Phone: Evaluation note* Diagnosis CML (chronic myeloid leukemia) (HCC)- Primary Chronic myeloid leukemia, without mention of having achieved remission CML (chronic myeloid leukemia) (HCC) Chronic myeloid leukemia, without mention of having achieved remission [facility] Diagnosis CML (chronic myeloid leukemia) (HCC)- Primary Chronic myeloid leukemia, without mention of having achieved remission CML (chronic myeloid leukemia) (HCC) Chronic myeloid leukemia, without mention of having achieved remission [facility]* Diagnosis Chronic myeloid leukemia (HCC) Chronic myeloid leukemia, without mention of having achieved remission [facility]* Diagnosis CML (chronic myelocytic leukemia) (HCC)- Primary Chronic myeloid leukemia, without mention of having achieved remission [facility]* Diagnosis CML (chronic myeloid leukemia) (HCC)- Primary Chronic myeloid leukemia, without mention of having achieved remission [facility]* Diagnosis CML (chronic myelocytic leukemia) (HCC)- Primary Chronic myeloid leukemia, without mention of having achieved remission CML (chronic myeloid leukemia) (HCC) Chronic myeloid leukemia, without mention of having achieved remission [facility]* Diagnosis Chronic myeloid leukemia (HCC)- Primary Chronic myeloid leukemia, without mention of having achieved remission CML (chronic myeloid leukemia) (HCC) Chronic myeloid leukemia, without mention of having achieved remission [facility]* Diagnosis Type 2 diabetes mellitus with microalbuminuria, with long-term current use of insulin (HCC)- Primary Primary hypertension Unspecified essential hypertension Mixed hyperlipidemia CML (chronic myeloid leukemia) (HCC) Chronic myeloid leukemia, without mention of having achieved remission [facility]* Diagnosis CML (chronic myeloid leukemia) (HCC)- Primary Chronic myeloid leukemia, without mention of having achieved remission CML (chronic myeloid leukemia) (HCC) Chronic myeloid leukemia, without mention of having achieved remission [facility]* Diagnosis CML (chronic myeloid leukemia) (HCC)- Primary Chronic myeloid leukemia, without mention of having achieved remission [facility]* Diagnosis CML (chronic myeloid leukemia) (HCC)- Primary Chronic myeloid leukemia, without mention of having achieved remission documented [facility] this [facility] ClinicInstructionsNot on filedocumented in this encounterFormerly [facility] (narrative)* Outpatient Procedure (Routine) - Pending Review Specialty Diagnoses / Procedures Referred By Contac t Referred To Contact [facility] Diagnoses CML (chronic myeloid leukemia) (HCC) Procedures ECHO ECHO TTHRC R-T 2D W/WOM-MODE COMPL SPEC&[place] [address] [place] [address] [facility] [place] [address] [place], [place] [id number] Referral ID Status Reason Start Date Expiration Date Visits Requested Visits Authorized [id number] Pending Review Auto-Generat ed Referral 09/10/2021 09/10/2022 1 1 * Outpatient Procedure (Routine) - Pending Review Specialty Diagnoses / Procedures Referred By Contac t Referred To Contact [facility] Diagnoses CML (chronic myeloid leukemia) (HCC) Procedures ECG COMPLETE ECG ROUTINE ECG W/LEAST 12 LDS W/I&R [place] [address] [place] [id number] [facility] [place] [address] [place] [address] Referral ID Status Reason Start Date Expiration Date Visits Requested Visits Authorized [id number] Pending Review Auto-Generat ed Referral 09/10/2021 09/10/2022 1 1 [facility] for referral (narrative)* Outpatient Procedure (Routine) - Authorized Specialty Diagnoses / Procedures Referred By Contac t Referred [facility] Diagnoses CML (chronic myeloid leukemia) (HCC) Procedures ECG COMPLETE ECG ROUTINE ECG W/LEAST 12 LDS W/I&R William [place] PhD [address] [place] [id number] [facility] [place] [address] [place] [address] Referral ID Status Reason Start Date Expiration Date Visits Requested Visits Authorized [id number] Authorized Auto-Generat ed Referral 11/27/2021 11/26/2022 1 1 * Outpatient Procedure (Routine) - Authorized Specialty Diagnoses / Procedures Referred By Contac t Referred To Contact [facility] Diagnoses CML (chronic myeloid leukemia) (HCC) Procedures ECHO ECHO TTHRC R-T 2D W/WOM-MODE COMPL SPEC&[place]R [place] [address] [place] [address] [facility] [place] [address] [place] [address] Referral ID Status Reason Start Date Expiration Date Visits Requested Visits Authorized [id number] Authorized Auto-Generat ed Referral 11/27/2021 11/26/2022 1 1 [facility] for referral (narrative)* Outpatient Procedure (Routine) - Pending Review Specialty Diagnoses / Procedures Referred By Contac t Referred To Contact [facility] Diagnoses CML (chronic myeloid leukemia) (HCC) Procedures ECG COMPLETE ECG ROUTINE ECG W/LEAST 12 LDS W/I&[place] [address] [place] [address] [facility] [place] [address] [place] [address] Referral ID Status Reason Start Date Expiration Date Visits Requested Visits Authorized [id number] Pending Review Auto-Generat ed Referral 12/04/2021 12/03/2022 1 1 T [facility] for referral (narrative)* Outpatient Procedure (Routine) - Pending Review Specialty Diagnoses / Procedures Referred By Contac t Referred To Contact [facility] Diagnoses CML (chronic myeloid leukemia) (HCC) Procedures ECHO ECHO TTHRC R-T 2D W/WOM-MODE COMPL SPEC&[place]R [place] [address] [place] [id number] [facility] [place] [address] [place] [address] Referral ID Status Reason Start Date Expiration Date Visits Requested Visits Authorized [id number] Pending Review Auto-Generat ed Referral 01/14/2022 01/10/2023 1 1 [facility] for referral (narrative)* Outpatient Procedure (Routine) - Pending Review Specialty Diagnoses / Procedures Referred By Contac t Referred To Contact [facility] Diagnoses CML (chronic myelocytic leukemia) (HCC) Procedures ECHO ECHO TTHRC R-T 2D W/WOM-MODE COMPL SPEC&[place] [address] [place] [address] [facility] [place] [address] Referral ID Status Reason Start Date Expiration Date Visits Requested Visits Authorized [id number] Pending Review Auto-Generat ed Referral 05/10/2023 1 1 [facility] for referral (narrative)* Outpatient Procedure (Routine) - Pending Review Specialty Diagnoses / Procedures Referred By Contac t Referred To [facility] Diagnoses CML (chronic myeloid leukemia) (HCC) Procedures ECHO ECHO TTHRC R-T 2D W/WOM-MODE COMPL SPEC&[place]R [place] [address] [place] [address] [facility] [address] [address] Referral ID Status Reason Start Date Expiration Date Visits Requested Visits Authorized [id number] Pending Review Auto-Generat ed Referral 12/05/2022 12/04/2023 1 1 [facility] for referral (narrative)* Outpatient Procedure (Routine) - Pending Review Specialty Diagnoses / Procedures Referred By Contac t Referred To Contact [facility] Diagnoses Chronic myeloid leukemia (HCC) Procedures ECHO ECHO TTHR R-T 2D W/WOM-MODE COMPL SPEC&[place] [address] [place] [address] [facility] [address] [address] Referral ID Status Reason Start Date Expiration Date Visits Requested Visits Authorized [id number] Pending Review Auto-Generat ed Referral 01/23/2023 01/22/2024 1 1 * Outpatient Procedure (Routine) - Pending Review Specialty Diagnoses / Procedures Referred By Contac t Referred To Contact [facility] Diagnoses Chronic myeloid leukemia (HCC) Procedures ECG COMPLETE ECG ROUTINE ECG W/LEAST 12 LDS W/I&[place] [address] [place] [address] [facility] [place] [address] [place] [address] Referral ID Status Reason Start Date Expiration Date Visits Requested Visits Authorized [id number] Pending Review Auto-Generat ed Referral 04/16/2023 01/22/2024 1 1 * Outpatient Procedure (Routine) - Pending Review Specialty Diagnoses / Procedures Referred By Contac t Referred To Contact [facility] Diagnoses Chronic myeloid leukemia (HCC) Procedures ECG COMPLETE ECG ROUTINE ECG W/LEAST 12 LDS W/I&R [place] [address] [place] [id number] [facility] [address] [address] Referral ID Status Reason Start Date Expiration Date Visits Requested Visits Authorized [id number] Pending Review Auto-Generat ed Referral 04/16/2023 01/22/2024 1 1 * Outpatient Procedure (Routine) - Pending Review Specialty Diagnoses / Procedures Referred By Contac t Referred To Contact [facility] Diagnoses Chronic myeloid leukemia (HCC) Procedures ECG COMPLETE ECG ROUTINE ECG W/LEAST 12 LDS W/I&R William Howell MD, PhD [id number] [place], [place] [phone] [facility] [place] [address] [place] [address] Referral ID Status Reason Start Date Expiration Date Visits Requested Visits Authorized [id number] Pending Review Auto-Generat ed Referral 04/16/2023 01/22/2024 1 1 [facility] for referral (narrative)* Outpatient Procedure (Routine) - Pending Review Specialty Diagnoses / Procedures Referred By Contac t Referred To Contact [facility] Diagnoses Chronic myeloid leukemia (HCC) Procedures ECG COMPLETE ECG ROUTINE ECG W/LEAST 12 LDS W/I&[place] [address] [place] [address] [address] Referral ID Status Reason Start Date Expiration Date Visits Requested Visits Authorized [id number] Pending Review Auto-Generat ed Referral 12/24/2023 08/19/2024 1 1 * Outpatient Procedure (Routine) - Pending Review Specialty Diagnoses / Procedures Referred By Contac t Referred To Contact [facility] Diagnoses Chronic myeloid leukemia (HCC) Procedures ECG COMPLETE ECG ROUTINE ECG W/LEAST 12 LDS W/I&R William Howell MD, PhD [id number] [place], [place] [id number] [address] [address] Referral ID Status Reason Start Date Expiration Date Visits Requested Visits Authorized [id number] Pending Review Auto-Generat ed Referral 12/24/2023 08/19/2024 1 1 * Outpatient Procedure (Routine) - Pending Review Specialty Diagnoses / Procedures Referred By Contac t Referred To [facility] Diagnoses Chronic myeloid leukemia (HCC) Procedures ECG COMPLETE ECG ROUTINE ECG W/LEAST 12 LDS W/I&R William Howell MD, PhD [address] [place], [place] [id number] [address] [address] Referral ID Status Reason Start Date Expiration Date Visits Requested Visits Authorized [id number] Pending Review Auto-Generat ed Referral 12/24/2023 08/19/2024 1 1 * Outpatient Procedure (Routine) - Pending Review Specialty Diagnoses / Procedures Referred By Contac t Referred To [facility] Diagnoses Chronic myeloid leukemia (HCC) Procedures ECHO ECHO TTHRC R-T 2D W/WOM-MODE COMPL SPEC&COLR D William Howell MD, PhD [id number] [place] [address] [address] [address] [address] Referral ID Status Reason Start Date Expiration Date Visits Requested Visits Authorized [id number] Pending Review Auto-Generat ed Referral 12/24/2023 08/19/2024 1 1 [facility] for visit Narrative* Outpatient Procedure (Routine) - Closed Specialty Diagnoses / Procedures Referred By Contbryan t Referred To Contact [facility] Diagnoses CML (chronic myeloid leukemia) (HCC) Procedures ECHO TTE W/DOPPLER, Connie Warren, WASTE RECLAIMER.POLYSOMNOGRAPHY TECHNOLOGIST [address] [place] [address] [address] Referral ID Status Reason Start Date Expiration Date V isits Requested Visits Authorized [id number] Closed Auto-Generate d Referral 06/06/2021 06/06/2022 1 1 [facility] Medications Administered Section Inactive Administered Medications - up to 3 most recent administrations Medication Order MAR Action Action Date Dose Rate Site INV [id number] 30 mg TABLET (IRB ACTG 1920/20-998) 30 mg, ORAL, ONCE, 1 dose, On 09/03/21 at 1230, Take THREE 10 mg tablets by mouth every other day, Days 1-28. Dispense 180 tablets. (3 cycle supply) Take with water and within 30 min after a meal. Tablets must be swallowed whole. Do not chew or crush. Hazardous Chemotherapy Drug: Use appropriate PPE. This drug cannot be crushed, dissolved, suspended, opened, or split on the nursing unit. Self Admin 09/03/2021 1:40 PM EDT 30 mg Inactive Administered Medications - up to 3 most recent administrations Medication Order MAR Action Action Date Dose Rate Site perflutren lipid microspheres 1.3 mL in NaCl (PF) 0.9% 10 mL injection (DEFINITY) INTRAVENOUS, DIRECTED NEEDED, 1 dose, Starting on Mildred 03/29/21 at 1123, Until 09/03/21 at 1314, Per Protocol - for use during ECHO procedure only, If no IV access, insert saline lock prior to administering contrast. Discontinue saline lock post exam. If patient has central line or IVAD, may access for administration according to line specific nursing protocol. Once exam is complete, flush line and de-access per line specific nursing protocol.Dilute 1.3 ml of Definity with 8.7 ml of preservative-free saline. Given 09/03/2021 1:14 PM EDT 1.3 mL Inactive Administered Medications - up to 3 most recent administrations Medication Order MAR Action Action Date Dose Rate Site perflutren lipid microspheres 1.3 mL in NaCl (PF) 0.9% 10 mL injection (DEFINITY) INTRAVENOUS, DIRECTED NEEDED, 1 dose, Starting on Mildred 01/23/23 at 1350, Until 04/16/23 at 1442, Per Protocol - for use during ECHO procedure only, If no IV access, insert saline lock prior to administering contrast. Discontinue saline lock post exam. If patient has central line or IVAD, may access for administration according to line specific nursing protocol. Once exam is complete, flush line and de-access per line specific nursing protocol.Dilute 1.3 ml of Definity with 8.7 ml of preservative-free saline. Given 04/16/2023 2:42 PM EST 1.3 mL Advance Directives No Advanced Directives Records FoundDocuments on File Type Date Recorded Patient Microbiology Coordinator Expl anation Advance Directive(s) 05/19/2021 11:26 AM Advance Directive(s) 12/21/2020 1:15 PM Advance Directive(s) 09/14/2020 4:15 PM Advance Directive(s) 04/28/2020 10:31 AM Advance Directive(s) 07/27/2019 2:14 PM Advance Directive(s) 04/21/2018 2:12 PM Advance Directive(s) 04/24/2017 9:30 AM Advance Directive(s) 03/15/2016 7:50 AM Advance Directive(s) 03/12/2016 11:21 AM Documents on File Type Date Recorded Patient Microbiology Coordinator Expl anation Advance Directive(s) 05/19/2021 11:26 AM Advance Directive(s) 12/21/2020 1:15 PM Advance Directive(s) 09/14/2020 4:15 PM Advance Directive(s) 04/28/2020 10:31 AM Advance Directive(s) 07/27/2019 2:14 PM Advance Directive(s) 04/21/2018 2:12 PM Advance Directive(s) 04/24/2017 9:30 AM Advance Directive(s) 03/15/2016 7:50 AM Advance Directive(s) 03/12/2016 11:21 AM Documents on File Type Date Recorded Patient Microbiology Coordinator Expl anation Advance Directive(s) 11/15/2021 2:15 PM Advance Directive(s) 05/19/2021 11:26 AM Advance Directive(s) 12/21/2020 1:15 PM Advance Directive(s) 09/14/2020 4:15 PM Advance Directive(s) 04/28/2020 10:31 AM Advance Directive(s) 07/27/2019 2:14 PM Advance Directive(s) 04/21/2018 2:12 PM Advance Directive(s) 04/24/2017 9:30 AM Advance Directive(s) 03/15/2016 7:50 AM Advance Directive(s) 03/12/2016 11:21 AM Documents on File Type Date Recorded Patient Microbiology Coordinator Expl anation Advance Directive(s) 11/15/2021 2:15 PM Advance Directive(s) 05/19/2021 11:26 AM Advance Directive(s) 12/21/2020 1:15 PM Advance Directive(s) 09/14/2020 4:15 PM Advance Directive(s) 04/28/2020 10:31 AM Advance Directive(s) 07/27/2019 2:14 PM Advance Directive(s) 04/21/2018 2:12 PM Advance Directive(s) 04/24/2017 9:30 AM Advance Directive(s) 03/15/2016 7:50 AM Advance Directive(s) 03/12/2016 11:21 AM Advance Directive Response Recorded Date/ Time Advance Directives No August 21, 2 019 4:35pm Reason for Referral Specialty Diagnoses / Procedures Referred By Contac t Referred To Contact Diagnoses Uncontrolled type 2 diabetes mellitus with hyperglycemia (HCC) Procedures CONSULT TO DIABETES EDUCATION OFFICE/OUTPATIENT NEW HIGH MDM 60-74 MINUTES Kylee Dalal, JEANNIE.POLYSOMNOGRAPHY TECHNOLOGIST [address] [place] [address] Referral ID Status Reason Start Date Expiration Date Visits Requested Visits Authorized [id number] Authorized PCP Requested Referral 2 03/19/2023 1 1 Summary Purpose Family History No Family History Records FoundNo Family History Records FoundNo Family History Records FoundNo Family History Records FoundNo Family History Records FoundNo Family History Records FoundNo Family History Records FoundNo Family History Records Found Chief Complaint and Reason for Visit Chief Complaint m25.511 Additional Source Comments Source Comments (unrecognize d section and content) In the event this informatio n is protected by the Federal Confidentiality of Alcohol and Drug Abuse Patient Records regulations: The Federal rules restrict any use of the information to criminally investigate or prosecute any alcohol or drug abuse patient.[facility] the event this information is protected by the Federal Confidentiality of Alcohol and Drug Abuse Patient Records regulations: The Federal rules restrict any use of the information to criminally investigate or prosecute any alcohol or drug abuse patient.[facility] the event this information is protected by the Federal Confidentiality of Alcohol and Drug Abuse Patient Records regulations: The Federal rules restrict any use of the information to criminally investigate or prosecute any alcohol or drug abuse patient.[facility] the event this information is protected by the Federal Confidentiality of Alcohol and Drug Abuse Patient Records regulations: The Federal rules restrict any use of the information to criminally investigate or prosecute any alcohol or drug abuse patient.[facility] the event this information is protected by the Federal Confidentiality of Alcohol and Drug Abuse Patient Records regulations: The Federal rules restrict any use of the information to criminally investigate or prosecute any alcohol or drug abuse patient.[facility] the event this information is protected by the Federal Confidentiality of Alcohol and Drug Abuse Patient Records regulations: The Federal rules restrict any use of the information to criminally investigate or prosecute any alcohol or drug abuse patient.[facility] the event this information is protected by the Federal Confidentiality of Alcohol and Drug Abuse Patient Records regulations: The Federal rules restrict any use of the information to criminally investigate or prosecute any alcohol or drug abuse patient.[facility] the event this information is protected by the Federal Confidentiality of Alcohol and Drug Abuse Patient Records regulations: The Federal rules restrict any use of the information to criminally investigate or prosecute any alcohol or drug abuse patient.[facility] HospitalIn the event this information is protected by the Federal Confidentiality of Alcohol and Drug Abuse Patient Records regulations: The Federal rules restrict any use of the information to criminally investigate or prosecute any alcohol or drug abuse patient.[facility] HospitalIn the event this information is protected by the Federal Confidentiality of Alcohol and Drug Abuse Patient Records regulations: The Federal rules restrict any use of the information to criminally investigate or prosecute any alcohol or drug abuse patient.[facility] HospitalIn the event this information is protected by the Federal Confidentiality of Alcohol and Drug Abuse Patient Records regulations: The Federal rules restrict any use of the information to criminally investigate or prosecute any alcohol or drug abuse patient.[facility] HospitalIn the event this information is protected by the Federal Confidentiality of Alcohol and Drug Abuse Patient Records regulations: The Federal rules restrict any use of the information to criminally investigate or prosecute any alcohol or drug abuse patient.[facility] HospitalIn the event this information is protected by the Federal Confidentiality of Alcohol and Drug Abuse Patient Records regulations: The Federal rules restrict any use of the information to criminally investigate or prosecute any alcohol or drug abuse patient.[facility] HospitalIn the event this information is protected by the Federal Confidentiality of Alcohol and Drug Abuse Patient Records regulations: The Federal rules restrict any use of the information to criminally investigate or prosecute any alcohol or drug abuse patient.[facility] HospitalIn the event this information is protected by the Federal Confidentiality of Alcohol and Drug Abuse Patient Records regulations: The Federal rules restrict any use of the information to criminally investigate or prosecute any alcohol or drug abuse patient.[facility] HospitalIn the event this information is protected by the Federal Confidentiality of Alcohol and Drug Abuse Patient Records regulations: The Federal rules restrict any use of the information to criminally investigate or prosecute any alcohol or drug abuse patient.[facility] HospitalIn the event this information is protected by the Federal Confidentiality of Alcohol and Drug Abuse Patient Records regulations: The Federal rules restrict any use of the information to criminally investigate or prosecute any alcohol or drug abuse patient.[facility] HospitalIn the event this information is protected by the Federal Confidentiality of Alcohol and Drug Abuse Patient Records regulations: The Federal rules restrict any use of the information to criminally investigate or prosecute any alcohol or drug abuse patient.[facility] HospitalIn the event this information is protected by the Federal Confidentiality of Alcohol and Drug Abuse Patient Records regulations: The Federal rules restrict any use of the information to criminally investigate or prosecute any alcohol or drug abuse patient.[facility] HospitalIn the event this information is protected by the Federal Confidentiality of Alcohol and Drug Abuse Patient Records regulations: The Federal rules restrict any use of the information to criminally investigate or prosecute any alcohol or drug abuse patient.[facility] HospitalIn the event this information is protected by the Federal Confidentiality of Alcohol and Drug Abuse Patient Records regulations: The Federal rules restrict any use of the information to criminally investigate or prosecute any alcohol or drug abuse patient.[facility] HospitalIn the event this information is protected by the Federal Confidentiality of Alcohol and Drug Abuse Patient Records regulations: The Federal rules restrict any use of the information to criminally investigate or prosecute any alcohol or drug abuse patient.[facility] HospitalIn the event this information is protected by the Federal Confidentiality of Alcohol and Drug Abuse Patient Records regulations: The Federal rules restrict any use of the information to criminally investigate or prosecute any alcohol or drug abuse patient.[facility] HospitalIn the event this information is protected by the Federal Confidentiality of Alcohol and Drug Abuse Patient Records regulations: The Federal rules restrict any use of the information to criminally investigate or prosecute any alcohol or drug abuse patient.[facility] HospitalIn the event this information is protected by the Federal Confidentiality of Alcohol and Drug Abuse Patient Records regulations: The Federal rules restrict any use of the information to criminally investigate or prosecute any alcohol or drug abuse patient.[facility] HospitalIn the event this information is protected by the Federal Confidentiality of Alcohol and Drug Abuse Patient Records regulations: The Federal rules restrict any use of the information to criminally investigate or prosecute any alcohol or drug abuse patient.[facility] HospitalIn the event this information is protected by the Federal Confidentiality of Alcohol and Drug Abuse Patient Records regulations: The Federal rules restrict any use of the information to criminally investigate or prosecute any alcohol or drug abuse patient.[facility] HospitalIn the event this information is protected by the Federal Confidentiality of Alcohol and Drug Abuse Patient Records regulations: The Federal rules restrict any use of the information to criminally investigate or prosecute any alcohol or drug abuse patient.[facility] HospitalIn the event this information is protected by the Federal Confidentiality of Alcohol and Drug Abuse Patient Records regulations: The Federal rules restrict any use of the information to criminally investigate or prosecute any alcohol or drug abuse patient.[facility] HospitalIn the event this information is protected by the Federal Confidentiality of Alcohol and Drug Abuse Patient Records regulations: The Federal rules restrict any use of the information to criminally investigate or prosecute any alcohol or drug abuse patient.[facility] HospitalIn the event this information is protected by the Federal Confidentiality of Alcohol and Drug Abuse Patient Records regulations: The Federal rules restrict any use of the information to criminally investigate or prosecute any alcohol or drug abuse patient.[facility] HospitalIn the event this information is protected by the Federal Confidentiality of Alcohol and Drug Abuse Patient Records regulations: The Federal rules restrict any use of the information to criminally investigate or prosecute any alcohol or drug abuse patient.[facility] HospitalIn the event this information is protected by the Federal Confidentiality of Alcohol and Drug Abuse Patient Records regulations: The Federal rules restrict any use of the information to criminally investigate or prosecute any alcohol or drug abuse patient.[facility] HospitalIn the event this information is protected by the Federal Confidentiality of Alcohol and Drug Abuse Patient Records regulations: The Federal rules restrict any use of the information to criminally investigate or prosecute any alcohol or drug abuse patient.[facility] HospitalIn the event this information is protected by the Federal Confidentiality of Alcohol and Drug Abuse Patient Records regulations: The Federal rules restrict any use of the information to criminally investigate or prosecute any alcohol or drug abuse patient.[facility] HospitalIn the event this information is protected by the Federal Confidentiality of Alcohol and Drug Abuse Patient Records regulations: The Federal rules restrict any use of the information to criminally investigate or prosecute any alcohol or drug abuse patient.[facility] HospitalIn the event this information is protected by the Federal Confidentiality of Alcohol and Drug Abuse Patient Records regulations: The Federal rules restrict any use of the information to criminally investigate or prosecute any alcohol or drug abuse patient.[facility] HospitalIn the event this information is protected by the Federal Confidentiality of Alcohol and Drug Abuse Patient Records regulations: The Federal rules restrict any use of the information to criminally investigate or prosecute any alcohol or drug abuse patient.[facility] HospitalIn the event this information is protected by the Federal Confidentiality of Alcohol and Drug Abuse Patient Records regulations: The Federal rules restrict any use of the information to criminally investigate or prosecute any alcohol or drug abuse patient.[facility] HospitalIn the event this information is protected by the Federal Confidentiality of Alcohol and Drug Abuse Patient Records regulations: The Federal rules restrict any use of the information to criminally investigate or prosecute any alcohol or drug abuse patient.[facility] HospitalIn the event this information is protected by the Federal Confidentiality of Alcohol and Drug Abuse Patient Records regulations: The Federal rules restrict any use of the information to criminally investigate or prosecute any alcohol or drug abuse patient.[facility] HospitalIn the event this information is protected by the Federal Confidentiality of Alcohol and Drug Abuse Patient Records regulations: The Federal rules restrict any use of the information to criminally investigate or prosecute any alcohol or drug abuse patient.[facility] HospitalIn the event this information is protected by the Federal Confidentiality of Alcohol and Drug Abuse Patient Records regulations: The Federal rules restrict any use of the information to criminally investigate or prosecute any alcohol or drug abuse patient.[facility] HospitalIn the event this information is protected by the Federal Confidentiality of Alcohol and Drug Abuse Patient Records regulations: The Federal rules restrict any use of the information to criminally investigate or prosecute any alcohol or drug abuse patient.[facility] HospitalIn the event this information is protected by the Federal Confidentiality of Alcohol and Drug Abuse Patient Records regulations: The Federal rules restrict any use of the information to criminally investigate or prosecute any alcohol or drug abuse patient.[facility] HospitalIn the event this information is protected by the Federal Confidentiality of Alcohol and Drug Abuse Patient Records regulations: The Federal rules restrict any use of the information to criminally investigate or prosecute any alcohol or drug abuse patient.[facility] HospitalIn the event this information is protected by the Federal Confidentiality of Alcohol and Drug Abuse Patient Records regulations: The Federal rules restrict any use of the information to criminally investigate or prosecute any alcohol or drug abuse patient.[facility] HospitalIn the event this information is protected by the Federal Confidentiality of Alcohol and Drug Abuse Patient Records regulations: The Federal rules restrict any use of the information to criminally investigate or prosecute any alcohol or drug abuse patient.[facility] HospitalIn the event this information is protected by the Federal Confidentiality of Alcohol and Drug Abuse Patient Records regulations: The Federal rules restrict any use of the information to criminally investigate or prosecute any alcohol or drug abuse patient.[facility] HospitalIn the event this information is protected by the Federal Confidentiality of Alcohol and Drug Abuse Patient Records regulations: The Federal rules restrict any use of the information to criminally investigate or prosecute any alcohol or drug abuse patient.[facility] HospitalIn the event this information is protected by the Federal Confidentiality of Alcohol and Drug Abuse Patient Records regulations: The Federal rules restrict any use of the information to criminally investigate or prosecute any alcohol or drug abuse patient.[facility] HospitalIn the event this information is protected by the Federal Confidentiality of Alcohol and Drug Abuse Patient Records regulations: The Federal rules restrict any use of the information to criminally investigate or prosecute any alcohol or drug abuse patient.[facility] HospitalIn the event this information is protected by the Federal Confidentiality of Alcohol and Drug Abuse Patient Records regulations: The Federal rules restrict any use of the information to criminally investigate or prosecute any alcohol or drug abuse patient.[facility] HospitalIn the event this information is protected by the Federal Confidentiality of Alcohol and Drug Abuse Patient Records regulations: The Federal rules restrict any use of the information to criminally investigate or prosecute any alcohol or drug abuse patient.[facility] HospitalIn the event this information is protected by the Federal Confidentiality of Alcohol and Drug Abuse Patient Records regulations: The Federal rules restrict any use of the information to criminally investigate or prosecute any alcohol or drug abuse patient.[facility] HospitalIn the event this information is protected by the Federal Confidentiality of Alcohol and Drug Abuse Patient Records regulations: The Federal rules restrict any use of the information to criminally investigate or prosecute any alcohol or drug abuse patient.[facility] HospitalIn the event this information is protected by the Federal Confidentiality of Alcohol and Drug Abuse Patient Records regulations: The Federal rules restrict any use of the information to criminally investigate or prosecute any alcohol or drug abuse patient.[facility]In the event this information is protected by the Federal Confidentiality of Alcohol and Drug Abuse Patient Records regulations: The Federal rules restrict any use of the information to criminally investigate or prosecute any alcohol or drug abuse patient.[facility] HospitalIn the event this information is protected by the Federal Confidentiality of Alcohol and Drug Abuse Patient Records regulations: The Federal rules restrict any use of the information to criminally investigate or prosecute any alcohol or drug abuse patient.[facility] HospitalIn the event this information is protected by the Federal Confidentiality of Alcohol and Drug Abuse Patient Records regulations: The Federal rules restrict any use of the information to criminally investigate or prosecute any alcohol or drug abuse patient.[facility] HospitalIn the event this information is protected by the Federal Confidentiality of Alcohol and Drug Abuse Patient Records regulations: The Federal rules restrict any use of the information to criminally investigate or prosecute any alcohol or drug abuse patient.[facility]In the event this information is protected by the Federal Confidentiality of Alcohol and Drug Abuse Patient Records regulations: The Federal rules restrict any use of the information to criminally investigate or prosecute any alcohol or drug abuse patient.[facility]In the event this information is protected by the Federal Confidentiality of Alcohol and Drug Abuse Patient Records regulations: The Federal rules restrict any use of the information to criminally investigate or prosecute any alcohol or drug abuse patient.[facility]In the event this information is protected by the Federal Confidentiality of Alcohol and Drug Abuse Patient Records regulations: The Federal rules restrict any use of the information to criminally investigate or prosecute any alcohol or drug abuse patient.[facility]In the event this information is protected by the Federal Confidentiality of Alcohol and Drug Abuse Patient Records regulations: The Federal rules restrict any use of the information to criminally investigate or prosecute any alcohol or drug abuse patient.[facility] HospitalIn the event this information is protected by the Federal Confidentiality of Alcohol and Drug Abuse Patient Records regulations: The Federal rules restrict any use of the information to criminally investigate or prosecute any alcohol or drug abuse patient.[facility] HospitalIn the event this information is protected by the Federal Confidentiality of Alcohol and Drug Abuse Patient Records regulations: The Federal rules restrict any use of the information to criminally investigate or prosecute any alcohol or drug abuse patient.[facility] Reason for Visit (unrecogniz ed section and content) Reason Comments Research ACTG 1920 / IRB 20-9 98 cycle 18 day 28 Specialty Diagnoses / Procedures Referred By Contac t Referred To Contact HEMATOLOGY/ONCOLOGY Diagnoses study pt irb#[id number](actg 1920 c92.10 nct# date time per slip emma Procedures NURSE RESEARCH 2 [place] [address] [place] [address] Emma Tuttle RN [address] [place] [address] Referral ID Status Reason Start Date Expiration Date Visits Re quested Visits Authorized [id number] Closed 10/13/2020 12/12/2020 1 1 Reason Comments Research ACTG 1920 / 20-998 c ycle 15 day 28 Reason Comments Research ACTG 1920 / IRB 20- 98 reconsent Reason Comments Medication Problem Reason Comments Biopsy Request Reason Comments Patient Question Reason Comments Appointment Reason Comments Established Patient Specialty Diagnoses / Procedures Referred By Yuri t Referred To Contact Hematology/Oncology / HEMATOLOGY/ONCOLOGY Diagnoses Chronic myeloid leukemia, BCR/ABL-positive, not having achieved remission STUDY PT IRB# [id number] C92.10 DATE TIME PER SLIP EMMA NCT# Procedures OFFICE/OUTPATIENT ESTABLISHED MOD MDM 30-39 MIN EST [place]IENT/[place] [address] [place] [address] [place] [address] [place] [id number] Referral ID Status Reason Start Date Expiration Date Visits Re quested Visits Authorized [id number] Closed 11/26/2021 06/08/2022 1 1 Reason Comments Biopsy Request needed for 05/16/2022 Reason Comments Research ACTG 192 / IRB 20- 98 cycle 21 day 28 Specialty Diagnoses / Procedures Referred By Yuri Referred To Contact HEMATOLOGY/ONCOLOGY Diagnoses Chronic myeloid leukemia, BCR/ABL-positive, not having achieved remission C92.10 (CML) Procedures BLOOD COUNT COMPLETE AUTO&AUTO DIFRNTL WBC COMPREHENSIVE METABOLIC PANEL BILIRUBIN TOTAL CREATINE KINASE TOTAL ASSAY OF BLOOD/URIC ACID ASSAY OF MAGNESIUM ASSAY OF PHOSPHORUS INORGANIC ASSAY OF AMYLASE ASSAY OF LIPASE PROTHROMBIN TIME THROMBOPLASTIN TIME PARTIAL PLASMA/WHOLE BLOOD ASSAY OF TROPONIN QUANTITATIVE URNLS DIP STICK/TABLET RGNT AUTO W/O MICROSCOPY LAB DOC NURSE EKG [place]CHO [place] [address] [place] [address] [place] [address] [place] [address] [address] [place] [address] Referral ID Status Reason Start Date Expiration Date Visits Requested Visits Authorized [id number] Authorized OON/Self Pay Override 02/18/2022 06/08/2022 99 99 Specialty Diagnoses / Procedures Referred By Yuri t Referred To Contact Hematology/Oncology / HEMATOLOGY/ONCOLOGY Diagnoses CML (chronic myeloid leukemia) (HCC) STUDY PT IRB# [id number] ACT 1920 C92.10 DATE TIME PER SLIP EMMA/EFRAÍN Procedures OFFICE/OUTPATIENT ESTABLISHED MOD MDM 30-39 MIN EST [place]IENT/[place] [address] [place] [id number] [place] [address] [place] [address] Referral ID Status Reason Start Date Expiration Date Visits Re quested Visits Authorized [id number] Closed 02/18/2022 06/08/2022 1 1 Reason Comments New Patient Referred by Dr. Portillo hernandez Specialty Diagnoses / Procedures Referred By Contact Referred To Contact Endocrinology / INITIAL DEPT Diagnoses CML (chronic myeloid leukemia) (HCC) Procedures CONSULT TO ENDOCRINOLOGY OFFICE/OUTPATIENT NEW HIGH MDM 60-74 MINUTES OFFICE/OUTPATIENT NEW MODERATE MDM 45-59 [place] [address] [place] [address] Initial Department Referral ID Status Reason Start Date Expiration Date V isits Requested Visits Authorized [id number] Closed PCP Requested Referral 03/19/2022 06/08/2022 1 1 Reason Onset Date Comments Refill Request 05/13/2022 Reason Comments Diabetes Specialty Diagnoses / Procedures Referred By Yuri t Referred To Contact Endocrinology / ENDOCRINOLOGY Diagnoses 3 months (around 06/19/2022 Procedures EST DAMON PATIENT Kylee Dalal, JEANNIE.POLYSOMNOGRAPHY TECHNOLOGIST [address] [facility] [place] [address] Kylee Dalal APRN.POLYSOMNOGRAPHY TECHNOLOGIST [address] [facility] [place] [address] Referral ID Status Reason Start Date Expiration Date Visits Re quested Visits Authorized [id number] Closed 07/04/2022 06/08/2023 1 1 Reason Comments Research Study ARIA 2915/ACTG 1920 Survival Follow-up Reason Comments Diabetes Self Management Education Specialty Diagnoses / Procedures Referred By Contac t Referred To Contact INITIAL DEPT Diagnoses Uncontrolled type 2 diabetes mellitus with hyperglycemia (HCC) Procedures CONSULT TO DIABETES EDUCATION OFFICE/OUTPATIENT NEW HIGH MDM 60-74 MINUTES MEDICAL NUTRITION ASSMT&IVNTJ INDIV EACH 15 [place] OFFICE/OUTPATIENT NEW MODERATE MDM 45-59 MINUTES Kylee Dalal APRN.POLYSOMNOGRAPHY TECHNOLOGIST [address] [place] [address] Initial Department Referral ID Status Reason Start Date Expiration Date V isits Requested Visits Authorized [id number] Closed PCP Requested Referral 07/30/2022 06/08/2023 1 1 Reason Comments Research ACTG 1920/-998 Cyc le 27 day 28 visit Reason Comments Established Patient Follow-Up Specialty Diagnoses / Procedures Referred By Yuri t Referred To Contact Hematology/Oncology / HEMATOLOGY/ONCOLOGY Diagnoses Chronic myeloid leukemia, BCR/ABL-positive, not having achieved remission STUDY PT IRB - ACTG 1920 DX - C92.10 DATE , TIME Procedures OFFICE/OUTPATIENT ESTABLISHED MOD MDM 30-39 MIN [place] [address] [place] [id number] William Howell [place], PhD [id number] [place], [place] [id number] Referral ID Status Reason Start Date Expiration Date Visits Re quested Visits Authorized [id number] Closed 08/05/2022 06/08/2023 1 1 Specialty Diagnoses / Procedures Referred By Contac t Referred To Contact Endocrinology / ENDOCRINOLOGY Diagnoses Follow-up exam Return in about 3 months (around 10/12/2022). Check out comments: Schedule with CDE Procedures OFFICE/OUTPATIENT ESTABLISHED MOD MDM 30-39 MIN EST DAMON PATIENT Self Kylee Dalal APRN.POLYSOMNOGRAPHY TECHNOLOGIST [address] [place] [address] Referral ID Status Reason Start Date Expiration Date Visits Re quested Visits Authorized [id number] Closed 10/15/2022 06/08/2023 1 1 Specialty Diagnoses / Procedures Referred By Contac t Referred To Contact Hematology/Oncology / HEMATOLOGY/ONCOLOGY Diagnoses Chronic myeloid leukemia, BCR/ABL-positive, not having achieved remission STUDY PT IRB /ACTG 1920 DX - C92.10 DATE , TIME Reschedule per Emma Procedures OFFICE/OUTPATIENT ESTABLISHED MOD [facility] 30-39 MIN [place] [address] [place] [address] [place] [address] [place] [address] Referral ID Status Reason Start Date Expiration Date Visits Re quested Visits Authorized [id number] Closed 10/30/2022 06/08/2023 1 1 Specialty Diagnoses / Procedures Referred By Contac t Referred To Contact Hematology/Oncology / HEMATOLOGY/ONCOLOGY Diagnoses CML (chronic myeloid leukemia) (HCC) STUDY PT IRB /ACTG 0 DX - C92.10 DATE , TIME PER SLIP EMMA Procedures OFFICE/OUTPATIENT ESTABLISHED MOD [facility] 30-39 MIN EST PATIENT William Howell MD, PhD [address] [place] [address] [place] PhD [address] [place] [address] Referral ID Status Reason Start Date Expiration Date Visits Re quested Visits Authorized [id number] Closed 12/25/2022 06/08/2023 1 1 Reason Comments Research ACTG 1919 c ycle 33 day 28 Reason Comments Research Error Reason Comments Research ARIA 2915 Survival F ollow-up Reason Comments Refill Request Reason Comments Research ACTG 1919 c ycle 36 day 28 Reason Comments IV Medication Administration Echo with D efinity Specialty Diagnoses / Procedures Referred By Contac t Referred To Contact Cardiology / VASCULAR MEDICINE Diagnoses Chronic myeloid leukemia, BCR/ABL-positive, not having achieved remission STUDY PT IRB /ACTG 1919 DX - C92.10 DATE , TIME PER SLIP EMMA Procedures ECHO TTHRC R-T 2D W/WOM-MODE COMPL SPEC&COLR D IMAGING [place] [address] [place] [id number] [address] [place] [address] Referral ID Status Reason Start Date Expiration Date Visits Re quested Visits Authorized [id number] Closed 04/16/2023 06/08/2023 1 1 Specialty Diagnoses / Procedures Referred By Contac t Referred To Contact Hematology/Oncology / HEMATOLOGY/ONCOLOGY Diagnoses Chronic myeloid leukemia, BCR/ABL-positive, not having achieved remission STUDY PT IRB 20-998/ACT 1919 DX - C92.10 DATE , TIME PER SLIP EMMA Procedures f/u per research study; ACTG 1919; IRB # [id number] William Howell MD, PhD [address] [place] [address] [place] [address] [place] [id number] Referral ID Status Reason Start Date Expiration Date Visits Requested Visits Authorized [id number] Pending Review OON/Self Pay Override 04/16/2023 10/13/2023 5 5 Specialty Diagnoses / Procedures Referred By Contac t Referred To Contact Hematology/Oncology / HEMATOLOGY/ONCOLOGY Diagnoses CML (chronic myeloid leukemia) (HCC) STUDY PT IRB 20-998/ACT 1919 DX - C92.10 DATE , TIME PER SLIP EMMA JFL Procedures OFFICE/OUTPATIENT ESTABLISHED MOD MDM 30 MIN EST PATIENT William Howell MD, PhD [address] [place] [address] [place] [address] [place] [id number] Referral ID Status Reason Start Date Expiration Date Visits Re quested Visits Authorized [id number] Closed 07/09/2023 06/08/2024 1 1 Reason Comments Follow Up Specialty Diagnoses / Procedures Referred By Contac t Referred To Contact Endocrinology / ENDOCRINOLOGY Diagnoses Type 2 diabetes mellitus with hyperglycemia, with long-term current use of insulin (HCC) follow up in person 4 months Procedures OFFICE/OUTPATIENT ESTABLISHED MOD MDM 30 MIN EST DAMON PATIENT Kylee Dalal APRN.POLYSOMNOGRAPHY TECHNOLOGIST [address] [place] [address] Kylee Dalal APRN.POLYSOMNOGRAPHY TECHNOLOGIST [address] [place] [address] Referral ID Status Reason Start Date Expiration Date Visits Re quested Visits Authorized [id number] Closed 08/25/2023 06/08/2024 1 1 Reason Comments Research ACTG 0 Cycle 42 D 28 Reason Comments Research ACTG 1919-8 c ycle 42 day 28 Care Teams (unrecognized sec tion and content) Gas Engineer Relationship Specialty Start Date End Date Aman Pack [address] [place] [address] PCP - General Family Practice 09/03/21 Emma Tuttle RN [address] [place] [address] Research Nurse Hematology/Oncology 06/05/20 [place] [address] [place] [address] Physician Hematology/Oncology 06/05/20 Gas Engineer Relationship Specialty Start Date End Date Aman Pack [address] [place] [address] PCP - General Family Practice 09/03/21 Emma Tuttle RN [address] [place] [address] Research Nurse Hematology/Oncology 06/05/20 [place] [address] [place] [address] Physician Hematology/Oncology 06/05/20 Gas Engineer Relationship Specialty Start Date End Date Aman Pack [address] [place] [address] PCP - General Family Practice 09/03/21 Emma Tuttle, RN [address] [place] [address] Research Nurse Hematology/Oncology 06/05/20 [place] [address] [place] [address] Physician Hematology/Oncology 06/05/20 Gas Engineer Relationship Specialty Start Date End Date Aman Pack [address] [place] [address] PCP - [facility] Practice 09/03/21 Emma Tuttle, MOISÉS [address] [place] [address] Research Nurse Hematology/Oncology 06/05/20 [place] [address] [place] [address] Physician Hematology/Oncology 06/05/20 Gas Engineer Relationship Specialty Start Date End Date Aman Pack [address] [place] [address] PCP - General Family Practice 09/03/21 Emma Tuttle, MOISÉS [address] [place] [address] Research Nurse Hematology/Oncology 06/05/20 [place] [address] [place] [address] Physician Hematology/Oncology 06/05/20 Gas Engineer Relationship Specialty Start Date End Date Aman Pack [address] [place] [address] PCP - General Family Practice 09/03/21 Emma Tuttle RN [address] [place] [address] Research Nurse Hematology/Oncology 06/05/20 [place] [address] [place] [address] Physician Hematology/Oncology 06/05/20 Gas Engineer Relationship Specialty Start Date End Date Aman Pack [address] [facility] [place] [address] PCP - General Family Practice 09/03/21 Emma Tuttle RN [address] [place] [address] Research Nurse Hematology/Oncology 06/05/20 [place] [address] [place] [address] Physician Hematology/Oncology 06/05/20 Gas Engineer Relationship Specialty Start Date End Date Aman Pack Walter [address] [place] [address] PCP - General Family Practice 09/03/21 Emma Tuttle RN [address] [place] [address] Research Nurse Hematology/Oncology 06/05/20 [place] [address] [place] [address] Physician Hematology/Oncology 06/05/20 Gas Engineer Relationship Specialty Start Date End Date Aman Pack Walter [address] [facility] [address] PCP - General Family Practice 09/03/21 Emma Tuttle RN [address] [place] [address] Research Nurse Hematology/Oncology 06/05/20 [place] [address] [place] [address] Physician Hematology/Oncology 06/05/20 Gas Engineer Relationship Specialty Start Date End Date Aman Pack [address] [place] [address] PCP - General Family Practice 09/03/21 Emma Tuttle, RN [address] [place] [address] Research Nurse Hematology/Oncology 06/05/20 [place] [address] [place] [address] Physician Hematology/Oncology 06/05/20 Gas Engineer Relationship Specialty Start Date End Date Aman Pack [address] [place] [address] PCP - General [facility] Practice 09/03/21 Emma Tuttle, MOISÉS [address] [place] [address] Research Nurse Hematology/Oncology 06/05/20 [place] [address] [place] [address] Physician Hematology/Oncology 06/05/20 Gas Engineer Relationship Specialty Start Date End Date mAan Pack [address] [place] [address] PCP - [facility] Practice 09/03/21 Emma Tuttle, MOISÉS [address] [place] [address] Research Nurse Hematology/Oncology 06/05/20 [place] [address] [place] [address] Physician Hematology/Oncology 06/05/20 Gas Engineer Relationship Specialty Start Date End Date Aman Pack [address] [place] [address] PCP - General Family Practice 09/03/21 Emma Tuttle, RN [address] [place] [address] Research Nurse Hematology/Oncology 06/05/20 [place] [address] [place] [address] Physician Hematology/Oncology 06/05/20 Gas Engineer Relationship Specialty Start Date End Date Aman Pack [address] [place] [address] PCP - General Family Practice 09/03/21 Emma Tuttle RN [address] [place] [address] Research Nurse Hematology/Oncology 06/05/20 [place] [address] [place] [address] Physician Hematology/Oncology 06/05/20 Gas Engineer Relationship Specialty Start Date End Date Aman Pack [address] [place] [address] PCP - General Family Practice 09/03/21 Emma Tuttle RN [address] [place] [address] Research Nurse Hematology/Oncology 06/05/20 [place] [address] [place] [address] Physician Hematology/Oncology 06/05/20 Gas Engineer Relationship Specialty Start Date End Date Aman Pack [address] [place] [address] PCP - General Family Practice 09/03/21 Emma Tuttle RN [address] [place] [address] Research Nurse Hematology/Oncology 06/05/20 [place] [address] [place] [address] Physician Hematology/Oncology 06/05/20 Gas Engineer Relationship Specialty Start Date End Date Aman Pcak [address] [place] [address] PCP - General Family Medicine 09/03/21 Emma Tuttle, RN [address] [place] [address] Research Nurse Hematology/Oncology 06/05/20 [place] [address] [place] [address] Physician Hematology/Oncology 06/05/20 Gas Engineer Relationship Specialty Start Date End Date Aman Pack [address] [place] [address] PCP - General Family Medicine 09/03/21 Emma Tuttle, RN [address] [place] [address] Research Nurse Hematology/Oncology 06/05/20 [place] [address] [place] [address] Physician Hematology/Oncology 06/05/20 Gas Engineer Relationship Specialty Start Date End Date Aman Pack [address] [place] [address] PCP - General Family Medicine 09/03/21 Emma Tuttle, RN [address] [place] [address] Research Nurse Hematology/Oncology 06/05/20 [place] [address] [place] [address] Physician Hematology/Oncology 06/05/20 Gas Engineer Relationship Specialty Start Date End Date Aman Pack [address] [place] [address] PCP - General Family Medicine 09/03/21 Emma Tuttle, RN [address] [place] [address] Research Nurse Hematology/Oncology 06/05/20 [place] [address] [place] [address] Physician Hematology/Oncology 06/05/20 Gas Engineer Relationship Specialty Start Date End Date Aman Pack [address] [place] [address] PCP - [facility] 09/03/21 Emma Tuttle RN [address] [place] [address] Research Nurse Hematology/Oncology 06/05/20 [place] [address] [place] [address] Physician Hematology/Oncology 06/05/20 Gas Engineer Relationship Specialty Start Date End Date Aman Pack [address] [place] [address] PCP - General Family Medicine 09/03/21 Emma Tuttle RN [address] [place] [address] Research Nurse Hematology/Oncology 06/05/20 [place] [address] [place] [address] Physician Hematology/Oncology 06/05/20 Gas Engineer Relationship Specialty Start Date End Date Aman Pack [address] [place] [address] PCP - General [facility] Medicine 09/03/21 Emma Tuttle RN [address] [place] [address] Research Nurse Hematology/Oncology 06/05/20 [place] [address] [place] [address] Physician Hematology/Oncology 06/05/20 Gas Engineer Relationship Specialty Start Date End Date Aman Pack [address] [place] [address] PCP - General Family Medicine 09/03/21 Emma Tuttle, MOISÉS [address] [place] [address] Research Nurse Hematology/Oncology 06/05/20 [place] PhD [address] [place] [address] Physician Hematology/Oncology 06/05/20 Gas Engineer Relationship Specialty Start Date End Date Aman Pack Walter [address] [place] [address] PCP - General Family Medicine 09/03/21 Emma Tuttle, RN [address] [place] [address] Research Nurse Hematology/Oncology 06/05/20 [place] [address] [place] [address] Physician Hematology/Oncology 06/05/20 Gas Engineer Relationship Specialty Start Date End Date Aman Pack Walter [address] [facility] [place] [address] PCP - General Family Medicine 09/03/21 Emma Tuttle, RN [address] [place] [address] Research Nurse Hematology/Oncology 06/05/20 [place] [address] [place] [address] Physician Hematology/Oncology 06/05/20 Gas Engineer Relationship Specialty Start Date End Date Aman Pack [address] [place] [address] PCP - General Family Medicine 09/03/21 Emma Tuttle, RN [address] [place] [address] Research Nurse Hematology/Oncology 06/05/20 [place] [address] [place] [address] Physician Hematology/Oncology 06/05/20 Gas Engineer Relationship Specialty Start Date End Date Aman Pack [address] [place] [address] PCP - [facility] Family [facility] 09/03/21 Emma Tuttle, MOISÉS [address] [place] [address] Research Nurse Hematology/Oncology 06/05/20 [place] [address] [place] [address] Physician Hematology/Oncology 06/05/20 Gas Engineer Relationship Specialty Start Date End Date Aman Pack [address] [place] [address] PCP - [facility] 09/03/21 Emma Tuttle, RN [address] [place] [address] Research Nurse Hematology/Oncology 06/05/20 [place] [address] [place] [address] Physician Hematology/Oncology 06/05/20 Gas Engineer Relationship Specialty Start Date End Date Aman Pack [address] [place] [address] PCP - General Family Medicine 09/03/21 Emma Tuttle, RN [address] [place] [address] Research Nurse Hematology/Oncology 06/05/20 [place] PhD [address] [place] [address] Physician Hematology/Oncology 06/05/20 Gas Engineer Relationship Specialty Start Date End Date Aman Pack [address] [place] [address] PCP - General Family Medicine 09/03/21 Emma Tuttle RN [address] [place] [address] Research Nurse Hematology/Oncology 06/05/20 [place] [address] [place] [address] Physician Hematology/Oncology 06/05/20 Gas Engineer Relationship Specialty Start Date End Date Aman Pack [address] [place] [address] PCP - General [facility] 09/03/21 Emma Tuttle RN [address] [place] [address] Research Nurse Hematology/Oncology 06/05/20 [place] [address] [place] [address] Physician Hematology/Oncology 06/05/20 Gas Engineer Relationship Specialty Start Date End Date Aman Pack [address] [place] [address] PCP - General Family Medicine 09/03/21 Emma Tuttle RN [address] [place] [address] Research Nurse Hematology/Oncology 06/05/20 [place] [address] [place] [address] Physician Hematology/Oncology 06/05/20 Gas Engineer Relationship Specialty Start Date End Date Sirena Aman Walter [address] [place] [address] PCP - General Family Medicine 09/03/21 Emma Tuttle, RN [address] [place] [address] Research Nurse Hematology/Oncology 06/05/20 [place] [address] [place] [address] Physician Hematology/Oncology 06/05/20 Gas Engineer Relationship Specialty Start Date End Date Aman Pack [address] [place] [address] PCP - General Family Medicine 09/03/21 Emma Tuttle, MOISÉS [address] [place] [address] Research Nurse Hematology/Oncology 06/05/20 [place] [address] [place] [address] Physician Hematology/Oncology 06/05/20 Gas Engineer Relationship Specialty Start Date End Date Aman Pack [address] [place] [address] PCP - General Family Medicine 09/03/21 Emma Tuttle, MOISÉS [address] [place] [address] Research Nurse Hematology/Oncology 06/05/20 [place] [address] [place] [address] Physician Hematology/Oncology 06/05/20 Gas Engineer Relationship Specialty Start Date End Date Sirena Aman Walter [address] [place] [address] PCP - General Family Medicine 09/03/21 Emma Tuttle RN [address] [place] [address] Research Nurse Hematology/Oncology 06/05/20 [place] [address] [place] [address] Physician Hematology/Oncology 06/05/20 Gas Engineer Relationship Specialty Start Date End Date Aman Pack [address] [place] [place] [address] PCP - General Family Medicine 09/03/21 Emma Tuttle RN [address] [place] [address] Research Nurse Hematology/Oncology 06/05/20 [place] PhD [address] [place] [address] Physician Hematology/Oncology 06/05/20 Gas Engineer Relationship Specialty Start Date End Date MelymorisAman villafana [address] [place] [address] PCP - General Family Medicine 09/03/21 Emma Tuttle RN [address] [place] [address] Research Nurse Hematology/Oncology 06/05/20 [place] [address] [place] [address] Physician Hematology/Oncology 06/05/20 Team Status: Active Member Role Status Dates Buffy Chung Primary Care Provider Active Team Status: Inactive Member Role Status Dates Buffy Chung Primary Care Provide r, Attending Provider, Referring Provider Active Gas Engineer Relationship Specialty Start Date End Date Aman Pack [address] [place] [address] PCP - General Family Medicine 09/03/21 Emma Tuttle, RN [address] [place] [address] Research Nurse Hematology/Oncology 06/05/20 [place] [address] [place] [address] Physician Hematology/Oncology 06/05/20 Gas Engineer Relationship Specialty Start Date End Date Aman Pack [address] [place] [address] PCP - General [facility] Medicine 09/03/21 Emma Tuttle, MOISÉS [address] [place] [address] Research Nurse Hematology/Oncology 06/05/20 [place] [address] [place] [address] Physician Hematology/Oncology 06/05/20 Gas Engineer Relationship Specialty Start Date End Date Aman Pack [address] [place] [address] PCP - General Family Medicine 09/03/21 Emma Tuttle RN [address] [place] [address] Research Nurse Hematology/Oncology 06/05/20 [place] PhD [address] [place] [address] Physician Hematology/Oncology 06/05/20 Gas Engineer Relationship Specialty Start Date End Date Sirena Aman Watson [address] [place] [address] PCP - General Family Medicine 09/03/21 Emma Tuttle, RN [address] [place] [address] Research Nurse Hematology/Oncology 06/05/20 William Howell MD, PhD [address] [place] [address] Physician Hematology/Oncology 06/05/20 Gas Engineer Relationship Specialty Start Date End Date Aman Pack [address] [place] [address] PCP - General Family Medicine 09/03/21 Emma Tuttle, MOISÉS [address] [place] [address] Research Nurse Hematology/Oncology 06/05/20 William Howell MD, PhD [address] [place] [address] Physician Hematology/Oncology 06/05/20 Gas Engineer Relationship Specialty Start Date End Date MelymorisAman villafana [address] [place] [address] PCP - General Family Medicine 09/03/21 Emma Tuttle, MOISÉS [address] [place] [address] Research Nurse Hematology/Oncology 06/05/20 William Howell MD, PhD [address] [place] [address] Physician Hematology/Oncology 06/05/20 Gas Engineer Relationship Specialty Start Date End Date Aman Pack [address] [place] [address] PCP - General Family Medicine 09/03/21 Emma Tuttle RN [address] [place] [address] Research Nurse Hematology/Oncology 06/05/20 [place] [address] [place] [address] Physician Hematology/Oncology 06/05/20 Gas Engineer Relationship Specialty Start Date End Date Sirena Aman Walter [address] [place] [address] PCP - General Family Medicine 09/03/21 Emma Tuttle, MOISSÉ [address] [place] [address] Research Nurse Hematology/Oncology 06/05/20 [place] [address] [place] [address] Physician Hematology/Oncology 06/05/20 Gas Engineer Relationship Specialty Start Date End Date Buffy Chung APRN-POLYSOMNOGRAPHY TECHNOLOGIST [address] [place] [address] PCP - General Nurse Practitioner 12/28/22 Gas Engineer Relationship Specialty Start Date End Date Buffy Chung, POLYSOMNOGRAPHY TECHNOLOGIST [address] [place] [address] PCP - General Family Medicine 09/15/23 Emma Tuttle RN [address] [place] [address] Research Nurse Hematology/Oncology 06/05/20 William Howell MD, PhD [id number] [place] [address] Physician Hematology/Oncology 06/05/20 Gas Engineer Relationship Specialty Start Date End Date Buffy Chung, POLYSOMNOGRAPHY TECHNOLOGIST [address] [place] [address] PCP - General Family Medicine 09/15/23 Emma Tuttle RN [address] [place] [address] Research Nurse Hematology/Oncology 06/05/20 William Howell MD, PhD [address] [place] [address] Physician Hematology/Oncology 06/05/20 Gas Engineer Relationship Specialty Start Date End Date Buffy Chung, POLYSOMNOGRAPHY TECHNOLOGIST [address] [place] [address] PCP - General Family Medicine 09/15/23 Emma Tuttle RN [address] [place] [address] Research Nurse Hematology/Oncology 06/05/20 William Howell MD, PhD [address] [place] [address] Physician Hematology/Oncology 06/05/20 Gas Engineer Relationship Specialty Start Date End Date Buffy Chung, POLYSOMNOGRAPHY TECHNOLOGIST [address] [place] [address] PCP - General Family Medicine 09/15/23 Emma Tuttle, RN [address] [place] [address] Research Nurse Hematology/Oncology 06/05/20 [place] [address] [place] [address] Physician Hematology/Oncology 06/05/20 (unrecognized sect ion and content) No Status Records FoundNo Status Records FoundNo Status Records FoundNo Status Records FoundNo Status Records FoundNo Status Records FoundNo Status Records FoundNo Status Records Found INFORMATION SOURCE (unrecogn ized section and content) DATE CREATED AUTHOR 08/13/2022 [facility] DATE CREATED AUTHOR AUTHOR'S ORGANIZ ATION 10/17/[address] [facility] DATE CREATED AUTHOR AUTHOR'S ORGANIZ ATION 02/19/2023 [facility] DATE CREATED AUTHOR AUTHOR'S ORGANIZ ATION 07/04/2023 [facility] DATE CREATED AUTHOR AUTHOR'S ORGANIZ ATION 08/10/2023 [facility] DATE CREATED AUTHOR AUTHOR'S ORGANIZ ATION 08/10/2023 [facility] DATE CREATED AUTHOR AUTHOR'S ORGANIZ ATION 09/12/2023 [facility] DATE CREATED AUTHOR AUTHOR'S ORGANIZ ATION 10/08/2023 [facility] Goals (unrecognized section and content) Goals may be documented in a n alternate sectionNot on filedocumented as of this encounter FOR RECORDS PERTAINING TO PATIENTS WHO ARE OR HAVE BEEN ENROLLED IN A CHEMICAL DEPENDENCY/SUBSTANCEABUSE PROGRAM, SOME INFORMATION MAY BE OMITTED. This clinical summary was aggregated from multiple sources. Caution should be exercised in using it in the provision of clinical care. This summary normalizes information from multiple sources, and as a consequence, information in this document may materially change the coding, format and clinical context of patient data. In addition, data may be omitted in some cases. CLINICAL DECISIONS SHOULD BE BASED ON THE PRIMARY CLINICAL RECORDS. [facility]. provides no warranty or guarantee of the accuracy or completeness of information in this document.
[2023-10-10] MEDS: DOXYCYCLINE MONOHYDRATE 100 MG CAPSULE PO (19:07)
[2023-10-10] MEDS: CEPHALEXIN 500 MG CAPSULE PO (19:07)
--- NOTE | 2023-10-10 19:09 | PC.NURSE ---
Pain, redness, and swelling to left hand knuckle area, skin intaact.
--- NOTE | 2023-10-11 06:58 | ED_ITS ---
HPI HPI - General Adult General Chief complaint: Extremity Problem, Nontraumatic Stated complaint: upper extremity pain Time Seen by Provider: 10/10/23 18:36 Source: patient Mode of arrival: walk-in Limitations: no limitations History of Present Illness HPI narrative: 53-year-old male to the emergency department to complain of pain in his hand. No traumatic injuries. Patient noticed some swelling redness and warmth of the dorsum that is gotten worse throughout the day today. He has full range of motion of his wrist and fingers. He denies any numbness or tingling. He denies any fever, sweats, chills. Related Data Home Medications ?Medication ?Instructions ?Recorded ?Confirmed dapagliflozin propanediol 10 mg 10 mg PO DAILY 08/06/23 09/11/23 tablet (Farxiga) insulin glargine 100 unit/mL (3 35 unit subcut BID 08/06/23 09/11/23 mL) subcutaneous pen (Lantus Solostar U-100 Insulin) lisinopril 20 mg tablet 20 mg PO DAILY 08/06/23 09/11/23 chemo trial drug 1 pill PO DAILY 09/11/23 09/11/23 Previous Rx's ?Medication ?Instructions ?Recorded cephalexin 500 mg capsule 500 mg PO Q6H 7 days #28 caps 10/10/23 doxycycline monohydrate 100 mg 100 mg PO BID 7 days #14 caps 10/10/23 capsule Allergies Allergy/AdvReac Type Severity Reaction Status Date / Time No Known Drug Allergies Allergy Verified 10/10/23 18:14 Opioid HPI Opioid Management Most Recent Opioid Data: No Data to Display Review of Systems ROS Status of ROS 10 or more systems reviewed and unremark able except as noted in history and below PFSH PFS Social History Smoking status: Never smoker Exam Narrative Exam Narrative: VITALS: I have reviewed the triage vital signs. GENERAL: Well developed, well appearing adult in no acute distress. NEURO: Alert and oriented. Moves all extremities. Face is symmetric and expressive. EYES: PERRL. No scleral icterus or conjunctival injection. No discharge. HENT: Normocephalic, atraumatic. Hearing is grossly intact. Nares grossly patent and without discharge. Mucous membranes moist. NECK: No JVD. Patient moves neck without restriction. Left hand: Radial pulses intact. Sensation is intact over the hand. Limit similar color and temperature to the contralateral extremity. There is a small area of Erythema, warmth, swelling over the dorsum of the hand. Just above 3rd MCP. No localization to joints. He has full range of motion of the fingers. No swelling of the fingers. SKIN: Warm and dry. Normal turgor. No rash or lesions appreciated. PSYCH: Mood, affect, and interaction is appropriate to the setting. Constitutional Vital Signs, click to edit/add: Last Vital Signs Temp 97.4 F L 10/10/23 18:14 Pulse 64 10/10/23 18:14 Resp 16 10/10/23 18:14 BP 176/87 H 10/10/23 18:14 Pulse Ox 96 10/10/23 18:14 O2 Del Method Room Air 10/10/23 18:14 Course Vital Signs Vital signs: Vital Signs Temperature 97.4 F L 10/10/23 18:14 Pulse Rate 64 10/10/23 18:14 Respiratory Rate 16 10/10/23 18:14 Blood Pressure 176/87 H 10/10/23 18:14 Pulse Oximetry 96 10/10/23 18:14 Oxygen Delivery Method Room Air 10/10/23 18:14 Temperature 97.4 F L 10/10/23 18:14 Pulse Rate 64 10/10/23 18:14 Respiratory Rate 16 10/10/23 18:14 Blood Pressure 176/87 H 10/10/23 18:14 Pulse Oximetry 96 10/10/23 18:14 Oxygen Delivery Method Room Air 10/10/23 18:14 Medical Decision Making [facility] Narrative Medical decision making narrative: 53-year-old male with what appears to be some mild cellulitis to the dorsum of the hand. Vital stable, the patient is afebrile. The limb is neurovascularly intact.No evidence of flexor tenosynovitis. No palpable abscess. I believe he is appropriate for outpatient treatment. We'll use Keflex and doxycycline. Patient was discharged home. Discharge Plan Discharge Stand Alone Forms: Portal Instructions Chief Complaint: Extremity Problem, Nontraumatic Clinical Impression: Cellulitis Patient Disposition: Home, Self-Care Time of Disposition Decision: 18:40 Condition: Good Mode of Transportation: Private Vehicle Prescriptions / Home Meds: New cephalexin 500 mg capsule 500 mg PO Q6H 7 Days Qty: 28 0RF doxycycline monohydrate 100 mg capsule 100 mg PO BID 7 Days Qty: 14 0RF No Action dapagliflozin propanediol [Farxiga] 10 mg tablet 10 mg PO DAILY lisinopril 20 mg tablet 20 mg PO DAILY insulin glargine [Lantus Solostar U-100 Insulin] 100 unit/mL (3 mL) insulin pen 35 unit SUBCUT BID chemo trial drug 1 pill PO DAILY Print Language: Macedonian Instructions: Cellulitis (ED) Referrals: Buffy Chung BLOCK MASON [Primary Care Provider] - As soon as possible Discharge Date/Time: 10/10/23 19:11
== END 2023-10-10 19:11 | disposition home or self-care (01) ==
PROVIDERS: Emergency Provider Student in an Organized Health Care Education/Training Program; PCP Nurse Practitioner
DX: L03.114 Cellulitis of left upper limb (principal); Z79.899 Other long term (current) drug therapy; Z79.4 Long term (current) use of insulin
CPT/HCPCS: 99283

== ENCOUNTER 2023-10-14 11:23 | Outpatient (OUT) | payer OTHER, SELFPAY ==
--- NOTE | 2023-10-14 11:40 | XR_ITS ---
[address] [address] Patient Name: DERRELL MERRITT MRN: [id number] date: 1970 Sex: M Assigned Patient Location: LAB Current Patient Location: LAB Accession/Order Number: [id number] Exam Date: 10/14/2023 11:45 Report Date: 10/14/2023 12:32 At the request of: ROLF MILLAN Procedure: XR hand LT min 3V EXAM: XR hand LT min 3V HISTORY: Localized Swelling Of Left Hand R22.32 COMPARISON: None. FINDINGS/IMPRESSION: 1. No acute fracture or dislocation 2. Mild degeneration of the interphalangeal joints. 3. Normal alignment of the bones of the hand. Electronically authenticated by: JOSE ANTONIO BETANCOURT Date: 10/14/2023 12:32
[2023-10-14 11:56] LABS: C Reactive Protein 0.67 mg/dL (<=0.50)
[2023-10-14 12:04] LABS: Basophils Absolute Auto 0.1 10^3/uL (0.0-0.1); Basophils Percent Auto 0.7 % (0.2-2.0); Eosinophils Absolute Auto 0.7 10^3/uL (0.0-0.7); Eosinophils Percent Auto 5.7 % (0.9-7.0); Hematocrit 44.2 % (42.0-54.0); Hemoglobin 14.8 g/dL (14.0-18.0); Immature Granulocytes Abs Auto 0.05 10^3/uL (0.00-0.03); Immature Granulocytes Pct Auto 0.4 % (0.0-0.5); Lymphocytes Absolute Auto 2.5 10^3/uL (1.2-3.8); Lymphocytes Percent Auto 21.5 % (20.5-60.0); Mean Corpuscular HGB Conc 33.5 g/dL (29.9-35.2); Mean Corpuscular Hemoglobin 26.5 pg (25.9-34.0); Mean Corpuscular Volume 79.1 fL (80.0-94.0); Mean Platelet Volume 10.2 fL (9.5-13.5); Monocytes Absolute Auto 0.9 10^3/uL (0.3-0.8); Monocytes Percent Auto 7.4 % (1.7-12.0); Neutrophils Absolute Auto 7.6 10^3/uL (1.4-6.5); Neutrophils Percent Auto 64.3 % (43.0-75.0); Platelet Count 287 10^3/uL (150-450); Red Blood Count 5.59 10^6/uL (4.70-6.10); Red Cell Distribution Width 14.3 % (11.0-15.0); White Blood Count 11.8 10^3/uL (4.0-11.0)
[2023-10-14 12:10] LABS: Erythrocyte Sedimentation Rate 81 mm/hr (<=20)
== END 2023-10-14 11:24 | disposition home or self-care (01) ==
LOC: LAB 11:25
PROVIDERS: PCP Nurse Practitioner; Visit Provider Nurse Practitioner
DX: R22.32 Localized swelling, mass and lump, left upper limb (principal)
CPT/HCPCS: 36415; 73130; 84550; 85025; 85652; 86140

== ENCOUNTER 2023-12-14 14:54 | Emergency (ER) | payer OTHER, SELFPAY ==
--- OUTSIDE RECORDS SUMMARY | 2023-12-14 15:00 | XMS_ITS | CCD ---
Author Organization [facility] Care Team Providers Care Pipe Bowl Paint Trimmer Name Role Phone Emma Tuttle RN Unavailable Unavailevelio Howell MD, PhD, Sudipto Unavailable Aman Pack Primary Care Provider AICHHOLZ, CONDENSER TESTER BUFFY Admitting Unavailable AICHHOLZ, CONDENSER TESTER BUFFY Attending Unavailable AICHHOLZ, CONDENSER TESTER BUFFY Primary Care Unavailable AICHHOLZ, CONDENSER TESTER BUFFY Admitting Unavailable AICHHOLZ, CONDENSER TESTER BUFFY Attending Unavailable AICHHOLZ, CONDENSER TESTER BUFFY Primary Care Unavailable AICHHOLZ, CONDENSER TESTER BUFFY Consulting Unavailable AICHHOLZ, CONDENSER TESTER BUFFY Admitting Unavailable AICHHOLZ, CONDENSER TESTER BUFFY Attending Unavailable AICHHOLZ, CONDENSER TESTER BUFFY Primary Care Unavailable AICHHOLZ, CONDENSER TESTER BUFFY Consulting Unavailable AICHHOLZ, CONDENSER TESTER BUFFY Primary Care Unavailable DR HUONG HERNÁNDEZ Admitting Unavailable VINAYAK ., DR BORJA Attending Unavailable JASON, DR SHANEL Villafana Consulting Unavailable LUCAS .JENNIFER Consulting Unavailabl e AICHHOLZ, CONDENSER TESTER BUFFY Primary Care Unavailable DR HUONG HERNÁNDEZ Admitting Unavailable HAY ., DR BORJA Attending Unavailable VINAYAK .DR BORJA Consulting Unavailable AICHHOLZ, CONDENSER TESTER BUFFY Admitting Unavailable AICHHOLZ, CONDENSER TESTER BUFFY Attending Unavailable AICHHOLZ, CONDENSER TESTER BUFFY Primary Care Unavailable Emma Tuttle RN Unavailable Unavailevelio Howell MD, PhD, Sudipto Unavailable Aman Pack Primary Care Provider [phone] ELGAFY, ANGUS Referring Unavailable ELGAFY, ANGUS Referring Unavailable ELHERBFY, ANGUS Attending Unavailable Emma Tuttle RN Unavailable Unavailabl e Buffy Chung Primary Care Provider Buffy Chung Attending Provider [phone] Buffy Chung Referring Provider YAN DURHAM Attending Unavailable YAN DURHAM Referring Unavailable BUFYF CHUNG Primary Care Unavailable Nigel Solorzano Attending Unavailable Nigel Solorzano Referring Unavailable AICHHOLBUFFY Chatman Primary Care Unavailable Aichholz NEON PUMPER-CONDENSER TESTER, Buffy Rascon Primary Care Provider Buffy Chung CNP Primary Care Provider [phone] BUFFY CHUNG Referring Unavailable DECLANHHOLLurdes, BUFFY Rascon Primary Care Unavailable DECLANHHOLLurdes, BUFFY Rascon Referring Unavailable AICHHOLLurdes, BUFFY Rascon Primary Care Unavailable YAN DURHAM Attending Unavailable BUFFY CHUNG Referring Unavailable AICHHOLLurdes, BUFFY Rascon Primary Care Unavailable YAN DURHAM Attending Unavailable JULIET, BUFFY Rascon Referring Unavailable AICHHOLZ, BUFFY J Primary Care Unavailable LARS PHOENIX Referring Unavailable AICHHOLLurdes, BUFFY Rascon Primary Care Unavailable YAN DURHAM Attending Unavailable YAN DURHAM Referring Unavailable JULIET, BUFFY Rascon Primary Care Unavailable NADERER, AMAN A Primary Care Unavailable LYNDA, SUDIPTO Referring Unavailable NADERER, AMAN A Primary Care Unavailable LYNDA, SUDIPTO Referring Unavailable LYNDA, ALYO Attending Unavailable NADERER, AMAN A Primary Care Unavailable LYNDA, SUDIPTO Referring Unavailable NADERER, AMAN A Primary Care Unavailable LYNDA, SUDIPTO Referring Unavailable NADERER, AMAN A Primary Care Unavailable LYNDA, SUDIPTO Referring Unavailable LYNDA, SUDIPTO Attending Unavailable NADERER, AMAN A Primary Care Unavailable LYNDA, SUDIPTO Referring Unavailable NADERER, AMAN A Primary Care Unavailable LYNDA, SUDIPTO Referring Unavailable KYLEE DALAL Referring Unavailable KYLEE DALAL Attending Unavailable NADERER, AMAN A Primary Care Unavailable KYLEE DALAL Referring Unavailable NADERER, AMAN A Primary Care Unavailable LYNDA, SUDIPTO Referring Unavailable NADERER, AMAN A Primary Care Unavailable LYNDA, SUDIPTO Attending Unavailable LYNDA, SUDIPTO Referring Unavailable NADERER, AMAN A Primary Care Unavailable NADERER, AMAN A Primary Care Unavailable LYNDA, SUDIPTO Referring Unavailable NADERER, AMAN A Primary Care Unavailable LYNDA, SUDIPTO Referring Unavailable MULUGETA, KYLEE Referring Unavailable MULUGETA, KYLEE Attending Unavailable NADERER, AMAN A Primary Care Unavailable AICHHOLZ, BUFFY DAY Primary Care Unavailable LYNDA, SUDIPTO Referring Unavailable AICHHOLZ, BUFFY DAY Primary Care Unavailable LYNDA, SUDIPTO Referring Unavailable AICHHOLZ, BUFFY DAY Primary Care Unavailable LYNDA, SUDIPTO Referring Unavailable AICHHOLZ, BUFFY DAY Primary Care Unavailable LYNDA, SUDIPTO Referring Unavailable LYNDA, SUDIPTO Attending Unavailable AICHHOLZ, BUFFY DAY Primary Care Unavailable LYNDA, SUDIPTO Referring Unavailable NADERER, AMAN A Primary Care Unavailable LEE, KOBI Attending Unavailable NADERER, AMAN A Primary Care Unavailable MULUGETA, KYLEE Attending Unavailable NADERER, AMAN A Primary Care Unavailable LYNDA, SUDIPTO Referring Unavailable NADERER, AMAN A Primary Care Unavailable SUBHAS, RAFAEL Attending Unavailable SUBHAS, RAFAEL Admitting Unavailable NADERER, AMAN A Primary Care Unavailable DOUGIE, DERRELL Hsu Attending Unavailable DOUGIE, DERRELL Hsu Admitting Unavailable JESUS, CRUZITO Referring Unavailable NADERER, AMAN A Primary Care Unavailable NADERER, AMAN A Primary Care Unavailable LYNDA, SUDIPTO Referring Unavailable NADERER, AMAN A Primary Care Unavailable LYNDA, SUDIPTO Referring Unavailable LYNDA, SUDIPTO Referring Unavailable NADERER, AMAN A Primary Care Unavailable NADERER, AMAN A Primary Care Unavailable LYNDA, SUDIPTO Referring Unavailable Aichholz, Buffy J Primary Care Provider DO Rosa Kilpatrick Jr Attending Provider Rosa Kilpatrick Jr Attending Unavailable Declanhhollurdes, Buffy Rascon Primary Care Unavailable Rosa Kilpatrick Jr Admitting Unavailable Buffy Cuhng Admitting Unavailable Buffy Chung Primary Care Unavailable Buffy Chung Attending Unavailable Buffy Chung Referring Unavailable BUFFY CHUNG Attending Unavailable BUFFY CHUNG Attending Unavailable BUFFY CHUNG Attending Unavailable JR. KILPATRICK GEORGE C Attending Unavaila BUFFY Buckley Attending Unavailable LARS PHOENIX Attending Unavailable LARS PHOENIX Attending Unavailable Allergies Allergy Classification Reported Allergen(s) Allergy Type Date of Onset Reaction(s) Facility (1 source) ALLERGIES NOT ON FILE; Translations: [ALLERGIES NOT ON FILE] Propensity to adverse reactions (disorder) [facility] Repository (17 sources) Morphinan opioid; Translations: [OPIOIDS - MORPHINE ANALOGUES] Drug Allergy 3 Vomiting, GI Upset, Nausea And Vomiting [facility] (4 sources) Morphine; Translations: [MORPHINE] Drug Allergy 3 Nausea And Vomiting [facility] Repository Medications Current [...] by mouth. dapagliflozin 10 mg oral tablet (17 sources) Sodium-Glucose Cotransporter 2 Inhibitor Start: 023 End: 024 take 1 tablet by mouth once daily at breakfast dapagliflozin propanediol (FARXIGA) 10 mg tablet Take 1 tablet by mouth daily with breakfast. 90 tablet 3 04/17/2023 10/28/2023 Discontinued Comment on above: Take 1 tablet by juan th daily with breakfast. empagliflozin 25 mg oral tablet (1 source) Sodium-Glucose Cotransporter 2 Inhibitor Start: 024 End: 025 take 1 tablet by mouth once daily at breakfast empagliflozin (JARDIANCE) 25 mg tablet Take 1 tablet by mouth daily with breakfast. 90 tablet 3 10/28/2023 10/22/2024 Active flash glucose scanning reader (FREESTYLE MARY ANN [...] ml insulin lispro 100 unt/ml pen injector (20 sources) Insulin Analog Start: 06-17-2023 insulin lispro [...] sources) Angiotensin Converting Enzyme Inhibitor Start: 09-10-19 23 take 1 tablet by mouth once daily lisinopril (ZESTRIL) 20 mg tablet Take 20 mg by mouth once daily. 0 09/09/2022 Active Comment on above: Take 20 mg by mouth once daily. NON FORMULARY (1 source) pravastatin sodium 80 mg oral tablet (20 sources) HMG-CoA Reductase Inhibitor Start: 08-29-19 24 take 1 tablet by mouth once daily [...] daily. 0 Active inject 30 [IU] by olpez bcutaneous injection once daily insulin glargine,hum.rec.anlog (LANTUS [...] mg tab let omega-3 acid ethyl esters (intermediate) 1000 mg oral capsule (20 sources) Start: [...] Classification Problem Date Documented Da te Episodic/Chronic Diabetes mellitus with complications (10 sources) Type II diabetes mellitus uncontrolled; Translations: [Type 2 diabetes mellitus with hyperglycemia] Onset: 08-06-2022 Chronic Disorders of lipid metabolism (6 sources) Mixed hyperlipidemia; Translations: [Mixed hyperlipidemia] Onset: 05-13-2022 Chronic Essential hypertension (7 sources) Essential hypertension; Translations: [Essential (primary) hypertension] Onset: 05-13-2022 Chronic Leukemias (20 sources) Chronic myeloid leukemia; Translations: [Chronic myeloid leukemia, BCR/ABL-positive, not having achieved remission] Onset: 04-06-2012 Chronic Other and ill-defined heart disease (3 sources) Cardiomegaly; Translations: [Cardiomegaly] Onset: 07-01-2023 Chronic Other injuries and conditions due to [...] caused by tuberculosis or sexually transmitted disease) (4 sources) Other hypertrophic cardiomyopathy; Translations: [Hypertrophic cardiomyopathy] Onset: 03-20-2023 03-20-2023 Chronic Residual codes; unclassified [...] Translations: [UNSPECIFIED ABDOMINAL PAIN] Onset: 11-21-2021 Episodic Cardiac dysrhythmias (2 sources) Palpitations; Translations: [Palpitations] Onset: 06-30-2023 Episodic Other aftercare (1 source) 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; Translations: [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 CURRENT DRUG THERAPY] Onset: 05-13-2022 Episodic Other aftercare (2 sources) halfway (current) use of insulin; Translations: [VACUUM APPLICATOR OPERATOR CURRENT USE OF INSULIN] Onset: 05-13-2022 Episodic [...] prostate; Translations: [Abnormal electrocardiogram [ECG] [EKG]] Onset: 08-11-2022 03-20-2023 Episodic Other skin disorders (20 sources) Eruption; [...] Test Name Value Interpretation Reference Range Facility HIV Screen ([facility])on HIV Screen ([facility]) Non-Reactive Normal Nonreactive [facility] Comment on above: Order Comment: Which is this, the Source or the Person with the Exposure?: EXPOSURE Source Medical Record: UNK Exposed Result Comment: PERF ORMED BY: [place] [address] PATHOLOGIST PIANO PLAYER ADITHYA JONES M.D. Performed By: #### H IV12 #### [place] [address] [place] #### HBSAG, HCV RX PCR, HBSAB #### [facility] , HIV Screen ChemBioOrdered By : Rosa Kilpatrick on 12-09-2023 HIV 1+2 IgG IA.rapid Ql (Bld) Non-Reactive Nonreactive [facility] Hep C Ab wRfx to Qnt PCRon 0 12-09-2023 Hepatitis C Virus Antibody Non-Reactive Normal Non Reactive [facility] Comment on above: Order Comment: Which is this, the Source or the Person with the Exposure?: EXPOSURE Source Medical Record: UNK Exposed Performed By: #### H IV12 #### [place] [address] [place] #### HBSAG, HCV RX PCR, HBSAB #### [facility] , Interpretation Hepatitis C Normal . [facility] Comment on above: Order Comment: Which is this, the Source or the Person with the Exposure?: EXPOSURE Source Medical Record: UNK Exposed Result Comment: Not infected with HCV unless early or acute infection is suspected (which may be delayed in an immunocompromised individual), or other evidence exists to indicate HCV infection. Performed By: #### H IV12 #### [address] #### HBSAG, HCV RX PCR, HBSAB #### [facility] , Hepatitis B Surface Antibody on 12-09-2023 Hepatitis B Surface Antibody Non-Reactive Normal . [facility] Comment on above: Order Comment: Which is this, the Source or the Person with the Exposure?: EXPOSURE Source Medical Record: UNK Exposed Result Comment: Non Reactive: Inconsistent with immunity, less than 10 mIU/mL Reactive: Consistent with immunity, greater than 9.9 mIU/mL Performed By: #### H IV12 #### [address] #### HBSAG, HCV RX PCR, HBSAB #### [facility] , Hepatitis B Surface Antigeno n 12-09-2023 HBsAg Screen Negative Normal Negative [facility] Comment on above: Order Comment: Which is this, the Source or the Person with the Exposure?: EXPOSURE Source Medical Record: UNK Exposed Result Comment: Perf ormed at: - [facility] [address] [id number] Product Safety Test Engineer: Macho Guillen PhD, Phone: [phone] PERFORMED BY: [place] [address] PATHOLOGIST PIANO PLAYER ADITHYA JONES M.D. Performed By: #### H IV12 #### [place] [address] #### HBSAG, HCV RX PCR, HBSAB #### [facility] , BASIC METABOLIC PANLon 12-01 Anion gap [Moles/Vol] 9 mmol/L Normal 5-15 [facility] Comment on above: Performed By: #### C BCA, PINR, BMP #### [facility] ([id number]) [address], [address] [place] [address] Calcium [Mass/Vol] 9.8 mg/dL Normal 8.5-10.5 [facility] Comment on above: Performed By: #### C BCA, PINR, BMP #### [facility] ([id number]) [address], [address] [place] [address] Chloride [Moles/Vol] 99 mmol/L Normal 98-109 [facility] Comment on above: Performed By: #### C BCA, PINR, BMP #### [facility] ([id number]) [address], [address] [place] [address] CO2 [Moles/Vol] 27 mmol/L Normal 22-32 [facility] Comment on above: Performed By: #### C BCA, PINR, BMP #### [facility] ([id number]) [address], [address] [place] [address] Creatinine [Mass/Vol] 0.65 mg/dL Normal 0.60-1.30 [facility] Comment on above: Result Comment: METH OD TRACEABLE TO IDMS STANDARD Performed By: #### C BCA, PINR, BMP #### [facility] ([id number]) [address], [address] [place] [address] eGFR (CKD-EPI) NON-RACE DEPENDENT >90 Normal >59 [facility] Comment on above: Result Comment: Reported eGFR is based on the CKD-EPI 2020 equation that does not use a race coefficient. Performed By: #### C BCA PINR, BMP #### [facility] ([id number]) [address], [address] [place] [address] Glucose [Mass/Vol] 178 mg/dL High 65-99 [facility] Comment on above: Performed By: #### C BCA, PINR, BMP #### [facility] ([id number]) [address], [address] [place] [address] Potassium [Moles/Vol] 4.4 mmol/L Normal 3.5-5.0 [facility] Comment on above: Performed By: #### C WILLI PINR, BMP #### [facility] ([id number]) [address], [address] [place] [address] Sodium [Moles/Vol] 135 mmol/L Normal 134-146 [facility] Comment on above: Performed By: #### C WILLI, PINR, BMP #### [facility] ([id number]) [address], [address] [place] [address] Urea nitrogen [Mass/Vol] 13 mg/dL Normal 5-23 [facility] Comment on above: Performed By: #### C WILLI, PINR, BMP #### [facility] ([id number]) [address], [address] [place] [address] CBC AND AUTO DIFFon 12-01- 24 ABSOLUTE BASOPHIL 0.1 X10E9/L Normal 0.0-0.2 [facility] Comment on above: Performed By: #### C BCA, PINR, BMP #### [facility] ([id number]) [address], [address] [place] [address] ABSOLUTE NEUTROPHIL 8.2 X10E9/L High 1.5-6.6 [facility] Comment on above: Performed By: #### C BCA, PINR, BMP #### [facility] ([id number]) [address], [address] [place] [address] Basophils/100 WBC (Bld) 0.8 % Normal [facility] Comment on above: Performed By: #### C SEAN MÁRQUEZ BMP #### [facility] ([id number]) [address], [facility] [address] [place] [address] Eosinophils (Bld) [#/Vol] 0.6 10*3/uL High 0.0-0.4 [facility] Comment on above: Performed By: #### C WILLI PINR, BMP #### [facility] ([id number]) [address], [facility] [address] [place] [address] Eosinophils/100 WBC (Bld) 4.7 % Normal [facility] Comment on above: Performed By: #### C SEAN MÁRQUEZ, BMP #### [facility] ([id number]) [address], [facility] [address] [place] [address] Erythrocyte distribution width (RBC) [Ratio] 14.3 % Normal 11.5-15.0 [facility] Comment on above: Performed By: #### C SEAN MÁRQUEZ BMP #### [facility] ([id number]) [address], [facility] [address] [place] [address] Hematocrit (Bld) [Volume fraction] 46.4 % Normal 39-49 [facility] Comment on above: Performed By: #### C EVELINA MÁRQUEZR, BMP #### [facility] ([id number]) [address] [place] [address] Hemoglobin (Bld) [Mass/Vol] 15.9 g/dL Normal 13.0-17.0 [facility] Comment on above: Performed By: #### C WILLI PINR, BMP #### [facility] ([id number]) [address], [facility] [address] [place] [address] Lymphocytes (Bld) [#/Vol] 2.8 10*3/uL Normal 1.0-3.5 [facility] Comment on above: Performed By: #### C WILLI PINR, BMP #### [facility] ([id number]) [address], [address] [place] [address] Lymphocytes/100 WBC (Bld) 22.3 % Normal [facility] Comment on above: Performed By: #### C WILLI PINR, BMP #### [facility] ([id number]) [address], [address] [place] [address] MCH (RBC) [Entitic mass] 27.0 pg Normal 27-34 [facility] Comment on above: Performed By: #### C WLILI PINR, BMP #### [facility] ([id number]) [address], [facility] [address] [place] [address] MCHC (RBC) [Mass/Vol] 34.3 g/dL Normal 32-36 [facility] Comment on above: Performed By: #### C WILLI PINR, BMP #### [facility] ([id number]) [address], [address] [place] [address] MCV (RBC) [Entitic vol] 79 fL Low 80-100 [facility] Comment on above: Performed By: #### C WILLI PINR, BMP #### [facility] ([id number]) [address] [place] [address] Monocytes (Bld) [#/Vol] 0.9 10*3/uL Normal 0-0.9 [facility] Comment on above: Performed By: #### C WILLI PINR, BMP #### [facility] ([id number]) [address] [place] [address] Monocytes/100 WBC (Bld) 6.9 % Normal [facility] Comment on above: Performed By: #### C WILLI, PINR, BMP #### [facility] ([id number]) [address], [address] [place] [address] Neutrophils/100 WBC (Bld) 65.3 % Normal [facility] Comment on above: Performed By: #### SEAN Hsu BCA BMP #### [facility] ([id number]) [address], [address] [place] [address] Platelet mean volume (Bld) [Entitic vol] 8.8 fL Normal 7-12 [facility] Comment on above: Performed By: #### SEAN Hsu BCA, BMP #### [facility] ([id number]) [address], [address] [place] [address] Platelets (Bld) [#/Vol] 303 10*3/uL Normal 150-450 [facility] Comment on above: Performed By: #### SEAN Hsu BCA, BMP #### [facility] ([id number]) [address], [address] [place] [address] RBC COUNT 5.89 X10E12/L High 4.10-5.70 [facility] Comment on above: Performed By: #### SEAN Hsu BCA, BMP #### [facility] ([id number]) [address] [address] [place] [address] WBC (Bld) [#/Vol] 12.5 10*3/uL High 4.0-11.0 [facility] Comment on above: Performed By: #### Aracelis MÁRQUEZ PINR, BMP #### [facility] ([id number]) [address], [address] [place] [address] PROTIME AND INRon 12-02-2023 INR Coag (PPP) [Relative time] 1.0 {INR} Normal 0.8-1.1 [facility] Comment on above: Performed By: #### Aracelis MÁRQUEZ PINR, BMP #### [facility] ([id number]) [address] [place] [address] PT Coag (PPP) [Time] 11.6 s Normal 9.8-13.2 [facility] Comment on above: Performed By: #### C WILLI, PINR, KRISTY #### [facility] ([id number]) [address] [place] [address] CNPNon 10-17-2023 CNPN Normal [facility] CNPNon 10-14-2023 CNPN Normal [facility] BONE MARROW ANALYSISon 10-02 CASE REPORT Normal [facility] Comment on above: Order Comment: Speci men Type: BONE MARROW SPECIMENOrdering Facility: [facility] Address: [address] [place] [address] Result Comment: Bone Marrow Pathology Report Case: [id number] Provider: William Howell MD, Collected: 10/03/2023 08:40 AM PhDOrdering Location: [place] [address] Received: 10/03/2023 10:29 AMPathologist: Gemma Torres MDSpecimens: A) - Bone Marrow, Aspirate, Left, Posterior, Iliac Crest B) - Bone Marrow, Biopsy, Left, Posterior, Iliac Crest C) - Bone Marrow, Clot, Left, Posterior, Iliac Crest D) - Blood Performed By: #### B MRT ####[facility] [id number] [place] [address] [place] DIAGNOSIS COMMENT Normal [facility] Comment on above: Order Comment: Speci men Type: BONE MARROW SPECIMENOrdering Facility: [facility] Address: [address] [place] [address] Performed By: #### B MRT ####[facility] LAB[facility] [id number] [place] [address] [place] FINAL DIAGNOSIS Normal [facility] Comment on above: Order Comment: Speci men Type: BONE MARROW SPECIMENOrdering Facility: [facility] Address: [address] [place] [address] Result Comment: A-C. Bone marrow, aspirate smear and core biopsy, with clot section:- Normocellular marrow (50-60%) with trilineage hematopoiesis.- Iron stores present.- See comment.D. Peripheral blood smear:- Eosinophilia and microcytosis without anemia.HJR 10/06/2023 Performed By: #### B MRT ####[facility] [id number] [address] OF [facility] FINAL PERFORMING LAB Normal [facility] Comment on above: Order Comment: Speci men Type: BONE MARROW SPECIMENOrdering Facility: [facility] Address: [address] [place] [address] Result Comment: Diag nostic interpretation performed at [facility], [address] [place] [address] CLIA# [id number] Director: Tico Jeter M.D. Performed By: #### B MRT ####[facility] [id number] [address] [place] Performed By: #### F CLLP, FCLLRFLX ####[facility] [id number] [address] [place] GROSS DESCRIPTION Normal [facility] Comment on above: Order Comment: Speci men Type: BONE MARROW SPECIMENOrdering Facility: [facility] Address: [address] [place] [address] Result Comment: A. B one Marrow, Aspirate, [...] Submitted for light microscopy.Gross examination performed at [facility], [facility] [place], [place] [id number] 10/03/2023 8:14 PM Performed By: #### B MRT ####[facility] LAB[facility]IA [id number] [address] AVENU[address]ES[id number] [place] MICROSCOPIC DESCRIPTION Normal [facility] Comment on above: Order Comment: Speci men Type: BONE MARROW SPECIMENOrdering Facility: [facility] Address: [facility] [place] [address] Result Comment: JOSSY PHERAL BLOOD:CBC (10/01/2023 8:49 [...] coat stored. Performed By: #### B MRT ####[facility] LABCLIA [id number] [place] [address] [place] BONE MARROW CHROMOSOME ANALo n 10-03-2023 CHROMOSOME BM Normal [facility] Comment on above: Order Comment: Speci men Type: BONE MARROW SPECIMENOrdering Facility: [facility] Address: [facility] [place] [address] Result Comment: Leena pérez Accession Number: [id number]: Aly HowelloPathologist: Zena Pathology No: [id number] diagnosis: Chronic myeloid leukemiaSpecimen Type: Bone marrowReceived Date: 10/03/2023Number of cells counted: 20Number of cells analyzed: 20Number of cells karyotyped: 20Banding resolution: 400Banding method: G-bandingDIAGNOSIS: 46,XY[20]INTERPRETATION: Normal, male karyotypeCOMMENT: Ten metaphase cells were analyzed from the culturesupplemented with GM-CSF and ten metaphase cells were analyzed fromthe 24 hour unstimulated culture. Twenty cells analyzed showed a46,XY karyotype, or had random chromosomal loss, attributed to cultureartifact. There was no significant numerical chromosome abnormalityand no structural change detected within the limits of resolution.There was no cytogenetic evidence of the [place] chromosomeobserved in previous studies in December 2014, March 2016, April2017, April 2019, and April 2020. The analyses in April 2018,August 2019, September and December 2020, June, November and May 2022, Octoberand April 2023 all demonstrated a 46,XY karyotype.Clinical and pathologic correlation is recommended.As reviewed by Radha Lozano, PhD, FACMGPerformed by [facility] HospitalPathology and Laboratory Medicine InstituteDivision of Molecular PathologyCytogenetics Lab, [id number] [address]. [place], [place] [address]Phone: Toll free: Performed By: #### [facility] ####[facility] LIMSCLIA [id number] [place] [address] [place] [address] BIOPSY BONE MARROW (HEMO) on 10-03-2023 CT BIOPSY BONE MARROW (HEMO) Normal [facility] DNA EXTRACTION BONE MARROW ( BUFFY COAT)on 10-03-2023 DNA EXTRACTION BONE MARROW (BUFFY COAT) Normal [facility] Comment on above: Order Comment: Rosa gaspar Type: BONE MARROW SPECIMENOrdering Facility: [facility] Address: [address] [place] [address] Result Comment: This specimen was received and successfully processed for future DNA purification should molecular testing be needed. Specimens will be available for 3 years from date of collection.To order testing on this specimen for [facility] patients, please place an [facility] order for DNA and RNA Clinical Testing ([id number]). To order testing for patients outside of the [facility] system, please request DNA and RNA for Clinical Testing, order code [id number].If additional paperwork is required for testing, please send completed forms via secure email to [email or web address]. Performed By: #### N [facility] ####[facility] LIMSCLIA [id number] [place] [address] [place] FLOW CYTOMETRY FOR LEUKEMIA/ LYMPHOMA (FCLL) PERFORMABLEon 10-03-2023 FLOW CYTOMETRY ORDER STATUS See Results in chart under F case ID Normal [facility] Comment on above: Order Comment: Rosa gaspar Type: BONE MARROW SPECIMENOrdering Facility: [facility] Address: [address] [place] [address] Performed By: #### F CLLP, FCLLRFLX ####[facility] LABCLIA [id number] [place] [address] [place] FLOW CYTOMETRY FOR LEUKEMIA/ LYMPHOMA (FCLL) REFLEXon 10-03-2023 DIAGNOSIS COMMENT Normal [facility] Comment on above: Order Comment: Rosa gaspar Type: BONE MARROW SPECIMENOrdering Facility: [facility] Address: [address] [place] [address] Result Comment: This assay is not designed to detect minimal residual disease, plasma cell neoplasms, or myeloid antigen maturational patterns.This test was developed and its performance characteristics determined by [facility]'s [facility] ([facility]). It has not been cleared or approved by the FDA. [facility] is regulated under CLIA as qualified to perform high-complexity testing. This test is used for clinical purposes. It should not be regarded as investigational or for research. Performed By: #### F EL ORONARFLX ####[facility] LABIA [id number] [place] [address] [place] FLOW CYTOMETRY RESULTS Normal [facility] Comment on above: Order Comment: Speci men Type: BONE MARROW SPECIMENOrdering Facility: [facility] Address: [address] [place] [address] Result Comment: Spec imen type: Bone marrow aspirateViability: 99%Flow Cytometry Bone Marrow ImmunophenotypingMarker Normal Cell Type Result (Lymphocytes)CD3 T-cells Normal PatternCD4 T-cell subset Normal PatternCD5 T-cells Normal PatternCD7 T/NK-cells Normal PatternCD8 T-cell subset Normal NzbzcvnNN12 Myeloid Normal MqyazxcKK97/56 NK cells Normal LpzsnrdEM82 B-cells Normal CidvyyfZG41 Blasts Normal MuuwsagUA42 Costa-leukocyte Normal Patternkappa/lambda B-cells PolytypicFlow cytometric analysis of the bone marrow aspirate reveals that 9% of total events have the CD45 and light scatter properties of lymphocytes. The lymphocytes are composed of T-cells (65%, CD4:CD8 ratio = 0.94), NK cells (3%), and polytypic B-cells (29%). Granulocytic elements are 79% of events. Blasts are not increased. Performed By: #### F CLLPALEXUSLLRFLX ####[facility] LABIA [id number] [address] [place] GROSS DESCRIPTION A. Bone Marrow Normal [facility] Comment on above: Order Comment: Speci men Type: BONE MARROW SPECIMENOrdering Facility: [facility] Address: [address] [place] [address] Result Comment: Rece ived 2 mls bone marrow in na hep Performed By: #### F ESTELA ORONALX ####[facility] LABCLIA [id number] [place] [address] [place] INTERPRETATION Normal [facility] Comment on above: Order Comment: Speci men Type: BONE MARROW SPECIMENOrdering Facility: [facility] Address: [address] [place] [address] Result Comment: Ther e is no evidence of involvement by a lymphoproliferative disorder or abnormal blast population. Correlation with the clinical and bone marrow histopathologic findings is suggested.HJR/ZW 10/06/2023 Performed By: #### F CLLP, FCLLRFLX ####[facility] LABCLIA [id number] [place] [address] [place] HISTORY PHYSICALon HISTORY PHYSICAL Normal [facility] NURSING PROGon 10-03-2023 NURSING PROG Normal [facility] PT EDon 10-03-2023 PT ED Normal [facility] Amylase SerPl-cCncon 024 Amylase [Catalytic activity/Vol] 52 U/L Normal 30-104 [facility] Comment on above: Order Comment: Speci men Type: BLOOD SPECIMENOrdering Facility: [facility] Address: [address] [place] [address] Performed By: #### 1 798-8, 13936-7, 77862-2, 3040-3, 2777-1 ####[facility] [id number] [place] [address] [place] BCR/ABL1 P210 %IS PANELon BCR/ABL1 P210 %IS 0.2311 Normal [facility] Comment on above: Order Comment: Speci men Type: BLOOD SPECIMENOrdering Facility: [facility] Address: [address] [place] [address] Performed By: #### P 210P ####[facility] LIMSCLIA [id number] [address] [place]#### 210ISBP ####[facility] LABCLIA [id number] [address] [place] BCR/ABL1 P210 MR 2.64 Normal [facility] Comment on above: Order Comment: Speci men Type: BLOOD SPECIMENOrdering Facility: [facility] Address: [address] [place] [address] Performed By: #### P 210P ####[facility] LIMSCLIA [id number] [address]#### 210ISBP ####[facility] LABCLIA [id number] [address] OF [place] BCR/ABL1 P210 QUANTITATIVE P CR BLOODon 10-01-2023 BCR/ABL1 P210 INTERPRETATION Normal [facility] Comment on above: Order Comment: Speci men Type: BLOOD SPECIMENOrdering Facility: [facility] Address: [address] [place] [address] Result Comment: BCR/ ABL1 p210 Quantitative PCRLaboratory Accession Number: [id number]:DETECTEDMR: 2.64%IS: 0.2311Interpretation:p210 BCR/ABL1 transcripts were detected. Quantitative results areexpressed on the International Scale (IS) and a log molecular response(MR) is calculated. On this scale, a value of less than or equal to0.1% corresponds to a major molecular response (MMR or MR3.0).Methodology:The Table8 QuantideX BCR/ABL IS assay is an FDA-cleared [...] et al, Blood 2006;108:28-37; Janes et al, Ifmmqjpt8183;29:999-1003As reviewed by Radha Lozano, PhD, [facility] Performed By: #### P 210P ####[facility] LIMSCA [id number] [place] [address] [place]#### 210ISBP ####[facility] [id number] [place] [address] [place] Bilirub Conj SerPl-mCncon Bilirubin.conjugat ed [Mass/Vol] mg/dL Normal <0.2 [facility] Comment on above: Order Comment: Speci men Type: BLOOD SPECIMENOrdering Facility: [facility] Address: [address] [place] [address] Performed By: #### 1 798-8, 15548-4, 77865-8, 3040-3, 2777-1 ####[facility] [id number] [place] [address] [place] CBC W Auto Differential pane l (Bld)on 10-01-2023 Basophils (Bld) [#/Vol] 0.09 10*3/uL Normal <0.11 [facility] Comment on above: Order Comment: Speci men Type: BLOOD SPECIMENOrdering Facility: [facility] Address: [address] [place] [address] Performed By: #### 5 7021-8 ####[facility] [id number] [address] [place] Basophils/100 WBC (Bld) 0.8 % Normal [facility] Comment on above: Order Comment: Speci men Type: BLOOD SPECIMENOrdering Facility: [facility] Address: [address] [place] [address] Performed By: #### 5 7021-8 ####[facility] [id number] [address] [place] Differential cell count method Nom (Bld) Auto Normal [facility] Comment on above: Order Comment: Speci men Type: BLOOD SPECIMENOrdering Facility: [facility] Address: [address] [place] [address] Performed By: #### 5 7021-8 ####[facility] [id number] [place] [address] [place] Eosinophils (Bld) [#/Vol] 0.63 10*3/uL High <0.46 [facility] Comment on above: Order Comment: Speci men Type: BLOOD SPECIMENOrdering Facility: [facility] Address: [address] [place] [address] Performed By: #### 5 7021-8 ####[facility] [place] [id number] [place] [address] [place] Eosinophils/100 WBC (Bld) 5.9 % Normal [facility] Comment on above: Order Comment: Speci men Type: BLOOD SPECIMENOrdering Facility: [facility] Address: [address] [place] [address] Performed By: #### 5 7021-8 ####[facility] [place] [id number] [place] [address] [place] Erythrocyte distribution width (RBC) [Ratio] 14.3 % Normal 11.5-15.0 [facility] Comment on above: Order Comment: Speci men Type: BLOOD SPECIMENOrdering Facility: [facility] Address: [address] [place] [address] Performed By: #### 5 7021-8 ####[facility] [place] [id number] [place] [address] [place] Hematocrit (Bld) [Volume fraction] 47.0 % Normal 39.0-51.0 [facility] Comment on above: Order Comment: Speci men Type: BLOOD SPECIMENOrdering Facility: [facility] Address: [address] [place] [address] Performed By: #### 5 7021-8 ####[facility] [id number] [place] [address] [place] Hemoglobin (Bld) [Mass/Vol] 15.5 g/dL Normal 13.0-17.0 [facility] Comment on above: Order Comment: Speci men Type: BLOOD SPECIMENOrdering Facility: [facility] Address: [address] [place] [address] Performed By: #### 5 7021-8 ####[facility] [id number] [place] [address] [place] Immature granulocytes (Bld) [#/Vol] 0.04 10*3/uL Normal <0.10 [facility] Comment on above: Order Comment: Speci men Type: BLOOD SPECIMENOrdering Facility: [facility] Address: [address] [place] [address] Performed By: #### 5 7021-8 ####[facility] [id number] [place] [address] [place] Immature granulocytes/100 WBC (Bld) 0.4 % Normal [facility] Comment on above: Order Comment: Speci men Type: BLOOD SPECIMENOrdering Facility: [facility] Address: [address] [place] [address] Performed By: #### 5 7021-8 ####[facility] [id number] [place] [address] [place] Lymphocytes (Bld) [#/Vol] 2.38 10*3/uL Normal 1.00-4.00 [facility] Comment on above: Order Comment: Speci men Type: BLOOD SPECIMENOrdering Facility: [facility] Address: [address] [place] [address] Performed By: #### 5 7021-8 ####[facility] [id number] [place] [address] [place] Lymphocytes/100 WBC (Bld) 22.3 % Normal [facility] Comment on above: Order Comment: Speci men Type: BLOOD SPECIMENOrdering Facility: [facility] Address: [address] [place] [address] Performed By: #### 5 7021-8 ####[facility] [id number] [place] [address] [place] MCH (RBC) [Entitic mass] 26.3 pg Normal 26.0-34.0 [facility] Comment on above: Order Comment: Speci men Type: BLOOD SPECIMENOrdering Facility: [facility] Address: [address] [place] [address] Performed By: #### 5 7021-8 ####[facility] [place] [id number] [place] [address] [place] MCHC (RBC) [Mass/Vol] 33.0 g/dL Normal 30.5-36.0 [facility] Comment on above: Order Comment: Speci men Type: BLOOD SPECIMENOrdering Facility: [facility] Address: [address] [place] [address] Performed By: #### 5 7021-8 ####[facility] [id number] [place] [address] [place] MCV (RBC) [Entitic vol] 79.8 fL Low 80.0-100.0 [facility] Comment on above: Order Comment: Speci men Type: BLOOD SPECIMENOrdering Facility: [facility] Address: [address] [place] [address] Performed By: #### 5 7021-8 ####[facility] [place] [facility] [id number] [place] [address] [place] Monocytes (Bld) [#/Vol] 0.70 10*3/uL Normal <0.87 [facility] Comment on above: Order Comment: Speci men Type: BLOOD SPECIMENOrdering Facility: [facility] Address: [address] [place] [address] Performed By: #### 5 7021-8 ####[facility] [place] [id number] [place] [address] [place] Monocytes/100 WBC (Bld) 6.6 % Normal [facility] Comment on above: Order Comment: Speci men Type: BLOOD SPECIMENOrdering Facility: [facility] Address: [address] [place] [address] Performed By: #### 5 7021-8 ####[facility] [id number] [place] [address] [place] Neutrophils (Bld) [#/Vol] 6.81 10*3/uL Normal 1.45-7.50 [facility] Comment on above: Order Comment: Speci men Type: BLOOD SPECIMENOrdering Facility: [facility] Address: [address] [place] [address] Performed By: #### 5 7021-8 ####[facility] [id number] [place] [address] [place] Neutrophils/100 WBC (Bld) 64.0 % Normal [facility] Comment on above: Order Comment: Speci men Type: BLOOD SPECIMENOrdering Facility: [facility] Address: [address] [place] [address] Performed By: #### 5 7021-8 ####[facility] [id number] [place] [address] [place] Nucleated RBC (Bld) [#/Vol] 10*3/uL Normal <0.01 [facility] Comment on above: Order Comment: Speci men Type: BLOOD SPECIMENOrdering Facility: [facility] Address: [address] [place] [address] Performed By: #### 5 7021-8 ####[facility] [place] [place] [id number] [place] [address] [place] Nucleated RBC/100 WBC (Bld) [Ratio] 0.0 /100 WBC Normal [facility] Comment on above: Order Comment: Speci men Type: BLOOD SPECIMENOrdering Facility: [facility] Address: [address] [place] [address] Performed By: #### 5 7021-8 ####[facility] [id number] [place] [address] [place] Platelet mean volume (Bld) [Entitic vol] 9.9 fL Normal 9.0-12.7 [facility] Comment on above: Order Comment: Speci men Type: BLOOD SPECIMENOrdering Facility: [facility] Address: [address] [place] [address] Performed By: #### 5 7021-8 ####[facility] [id number] [place] [address] [place] Platelets (Bld) [#/Vol] 271 10*3/uL Normal 150-400 [facility] Comment on above: Order Comment: Speci men Type: BLOOD SPECIMENOrdering Facility: [facility] Address: [address] [place] [address] Performed By: #### 5 7021-8 ####[facility] [id number] [place] [address] [place] RBC (Bld) [#/Vol] 5.89 10*6/uL Normal 4.20-6.00 [facility] Comment on above: Order Comment: Speci men Type: BLOOD SPECIMENOrdering Facility: [facility] Address: [address] [place] [address] Performed By: #### 5 7021-8 ####[facility] [id number] [place] [address] [place] WBC (Bld) [#/Vol] 10.65 10*3/uL Normal 3.70-11.00 [facility] Comment on above: Order Comment: Speci men Type: BLOOD SPECIMENOrdering Facility: [facility] Address: [address] [place] [address] Performed By: #### 5 7021-8 ####[facility] [id number] [place] [address] [place] CK SerPl-cCncon 10-01-2023 CK [Catalytic activity/Vol] 64 U/L Normal 51-298 [facility] Comment on above: Order Comment: Speci men Type: BLOOD SPECIMENOrdering Facility: [facility] Address: [address] [place] [address] Performed By: #### H STNT, 2157-6 ####[place] [id number] [address] [place] CNNURSEon 10-01-2023 CNNURSE Normal [facility] CNOVSPon 10-01-2023 CNOVSP Normal [facility] Cholest SerPl-mCncon 024 Cholesterol [Mass/Vol] 183 mg/dL Normal <200 [facility] Comment on above: Order Comment: Speci men Type: BLOOD SPECIMENOrdering Facility: [facility] Address: [address] [place] [address] Result Comment: <200 mg/dL, Desirable 200-239 mg/dL, Borderline high>239 mg/dL, HighReference:1. National Cholesterol Education Program ATP III Guideline At-A-Glance Quick Desk Reference: National Heart, Lung, and Blood Bitely. National Institutes of Health. 2001: NIH Publication No. 01-3305. Performed By: #### 2 093-3 ####[facility] [id number] [place] [address] [place] Comprehensive metabolic 2000 panelon 10-01-2023 Albumin [Mass/Vol] 4.2 g/dL Normal 3.9-4.9 [facility] Comment on above: Order Comment: Speci men Type: BLOOD SPECIMENOrdering Facility: [facility] Address: [address] [place] [address] Performed By: #### 2 571-8, 308-1, ####[facility] [id number] [place] [address] [place] ALP [Catalytic activity/Vol] 188 U/L High 38-113 [facility] Comment on above: Order Comment: Speci men Type: BLOOD SPECIMENOrdering Facility: [facility] Address: [address] [place] [address] Performed By: #### 2 571-8, 3083-06, ####[facility] [id number] [place] [address] [place] ALT [Catalytic activity/Vol] 34 U/L Normal 10-54 [facility] Comment on above: Order Comment: Speci men Type: BLOOD SPECIMENOrdering Facility: [facility] Address: [address] [place] [address] Performed By: #### 2 571-8, 3083-06, ####[facility] [place] [id number] [place] [address] [place] Anion gap [Moles/Vol] 9 mmol/L Normal 9-18 [facility] Comment on above: Order Comment: Speci men Type: BLOOD SPECIMENOrdering Facility: [facility] Address: [address] [place] [address] Performed By: #### 2 571-8, 3083-06, ####[facility] [id number] [place] [address] [place] AST [Catalytic activity/Vol] 31 U/L Normal 14-40 [facility] Comment on above: Order Comment: Speci men Type: BLOOD SPECIMENOrdering Facility: [facility] Address: [address] [place] [address] Performed By: #### 2 571-8, 3083-06, ####[facility] [id number] [place] [address] [place] Bilirubin [Mass/Vol] 0.4 mg/dL Normal 0.2-1.3 [facility] Comment on above: Order Comment: Speci men Type: BLOOD SPECIMENOrdering Facility: [facility] Address: [address] [place] [address] Performed By: #### 2 571-8, 3083-06, ####[facility] [id number] [place] [address] [place] Calcium [Mass/Vol] 9.8 mg/dL Normal 8.5-10.2 [facility] Comment on above: Order Comment: Speci men Type: BLOOD SPECIMENOrdering Facility: [facility] Address: [address] [place] [address] Performed By: #### 2 571-8, 3083-06, ####[facility] [id number] [place] [address] [place] Chloride [Moles/Vol] 101 mmol/L Normal 97-105 [facility] Comment on above: Order Comment: Speci men Type: BLOOD SPECIMENOrdering Facility: [facility] Address: [address] [place] [address] Performed By: #### 2 571-8, 3083-06, ####[facility] [id number] [place] [address] [place] CO2 [Moles/Vol] 24 mmol/L Normal 22-30 [facility] Comment on above: Order Comment: Speci men Type: BLOOD SPECIMENOrdering Facility: [facility] Address: [address] [place] [address] Performed By: #### 2 571-8, 3083-06, ####[facility] [id number] [place] [address] [place] Creatinine [Mass/Vol] 0.68 mg/dL Low 0.73-1.22 [facility] Comment on above: Order Comment: Rosa gaspar Type: BLOOD SPECIMENOrdering Facility: [facility] Address: [address] [place] [address] Performed By: #### 2 571-8, 308-1, 94590-1 ####[facility] [id number] [address] Creatinine and Glomerular filtration rate.predicted panel (S/P/Bld) 110 mL/min/1.73m??? Normal >=60 [facility] Comment on above: Order Comment: Rosa gaspar Type: BLOOD SPECIMENOrdering Facility: [facility] Address: [address] [place] [address] Result Comment: Najma mated Glomerular Filtration Rate [...] reflect actual GFR. Performed By: #### 2 571-8, 308-1, 61528-8 ####[facility] [id number] [place] [address] [place] Glucose [Mass/Vol] 131 mg/dL High 74-99 [facility] Comment on above: Order Comment: Rosa gaspar Type: BLOOD SPECIMENOrdering Facility: [facility] Address: [address] [place] [address] Result Comment: The [place] [employer] (ADA) provides guidance for cutoff [...] of Medical Care in Diabetes 2016, [place] [employer]. Diabetes Care. 2016.39(Suppl 1). Performed By: #### 2 571-8, 3083-06, ####[facility] [id number] [place] [address] [place] Potassium [Moles/Vol] 4.7 mmol/L Normal 3.7-5.1 [facility] Comment on above: Order Comment: Rosa gaspar Type: BLOOD SPECIMENOrdering Facility: [facility] Address: [address] [place] [address] Performed By: #### 2 571-8, 3083-06, ####[facility] [id number] [place] [address] [place] Protein [Mass/Vol] 8.6 g/dL High 6.3-8.0 [facility] Comment on above: Order Comment: Rosa gaspar Type: BLOOD SPECIMENOrdering Facility: [facility] Address: [address] [place] [address] Performed By: #### 2 571-8, 3083-06, ####[facility] [id number] [place] [address] [place] Sodium [Moles/Vol] 134 mmol/L Low 136-144 [facility] Comment on above: Order Comment: Rosa gaspar Type: BLOOD SPECIMENOrdering Facility: [facility] Address: [address] [place] [address] Performed By: #### 2 571-8, 3083-06, ####[facility] [id number] [place] [id number] [place] Urea nitrogen [Mass/Vol] 11 mg/dL Normal 9-24 [facility] Comment on above: Order Comment: Rosa gaspar Type: BLOOD SPECIMENOrdering Facility: [facility] Address: [address] [place] [address] Performed By: #### 2 571-8, 3084-1, 47104-0 ####[facility] [id number] [place] [address] [place] [id number] 10-01-2023 ECG01 Normal [facility] ECG01 Normal [facility] HIGH SENSITIVITY TROPONIN To n 10-01-2023 Troponin T.cardiac High sensitivity method [Mass/Vol] 32 ng/L High <12 [facility] Comment on above: Order Comment: Rosa gaspar Type: BLOOD SPECIMENOrdering Facility: [facility] Address: [address] [place] [address] Result Comment: When assessing risk for acute [...] for 30 day MACE. Performed By: #### H STNT, 2157-6 ####[facility] [id number] [address] STATES [facility] HbA1c (Bld)on 10-01-2023 Average glucose Estimated from glycated hemoglobin (Bld) [Mass/Vol] 148 mg/dL Normal [facility] Comment on above: Order Comment: Rosa gaspar Type: BLOOD SPECIMENOrdering Facility: [facility] Address: [address] [place] [address] Result Comment: eAG: (Estimated average glucose) is a calculated value from HgbA1c and is chemical sales representative of the average blood glucose level in the last 2-3 month period. Performed By: #### 5 5454-3 ####[facility] [id number] [address] [place] HbA1c (Bld) [Mass fraction] 6.8 % High 4.3-5.6 [facility] Comment on above: Order Comment: Rosa gaspar Type: BLOOD SPECIMENOrdering Facility: [facility] Address: [address] [place] [address] Result Comment: [place] Diabetes Association guidelines indicate that patients with HgbA1c in the range 5.7-6.4% are at increased risk for development of diabetes, and intervention by lifestyle modification may be beneficial. HgbA1c greater or equal to 6.5% is considered diagnostic of diabetes. Performed By: #### 5 5454-3 ####[facility] [id number] [place] [address] [place] Lipase SerPl-cCncon 10-01-19 Lipase [Catalytic activity/Vol] 35 U/L Normal 16-61 [facility] Comment on above: Order Comment: Rosa gaspar Type: BLOOD SPECIMENOrdering Facility: [facility] Address: [address] [place] [address] Performed By: #### 1 798-8, 48281-9, 68225-0, 3040-3, 2777-1 ####[facility] [place] [id number] [place] [address] [place] Magnesium SerPl-mCncon 09-30 Magnesium [Mass/Vol] 2.2 mg/dL Normal 1.7-2.3 [facility] Comment on above: Order Comment: Rosa hubert Type: BLOOD SPECIMENOrdering Facility: [facility] Address: [address] [place] [address] Performed By: #### 1 798-8, 88746-2, 42350-2, 3040-3, 2777-1 ####[facility] [id number] [place] [address] [place] NURSING PROGon 10-01-2023 NURSING PROG Normal [facility] PT panel Coag (PPP)on 2023 INR Coag (PPP) [Relative time] 1.0 {INR} Normal 0.9-1.3 [facility] Comment on above: Order Comment: Rosa gaspar Type: BLOOD SPECIMENOrdering Facility: [facility] Address: [address] [place] [address] Result Comment: Nyla min K Antagonist (VKA) Therapeutic Range: INR 2 to 3 (Target INR of 2.5)Note: For patients treated with VKA drugs, such as warfarin, the [place] [employer] 2012 Guideline recommends [...] of 3).Coby REYES, et al. Chest 2012, 141:7S-47SNishimbrisa RA, et al. [facility] 2017, 70: 252-289 Performed By: #### 3 4528-0, 42511-9 ####[facility] [id number] [place] [address] [place] PT Coag (PPP) [Time] 11.0 s Normal 9.7-13.0 [facility] Comment on above: Order Comment: Rosa gaspar Type: BLOOD SPECIMENOrdering Facility: [facility] Address: [address] [place] [address] Performed By: #### 3 4528-0, 94409-1 ####[facility] [id number] [place] [address] [place] Phosphate SerPl-mCncon 09-30 Phosphate [Mass/Vol] 3.7 mg/dL Normal 2.7-4.8 [facility] Comment on above: Order Comment: Rosa gaspar Type: BLOOD SPECIMENOrdering Facility: [facility] Address: [address] [place] [address] Performed By: #### 1 798-8, 76552-0, 06741-3, 3040-3, 2777-1 ####[facility] [id number] [place] [address] [place] Trigl SerPl-mCncon Triglyceride [Mass/Vol] 139 mg/dL Normal <150 [facility] Comment on above: Order Comment: Speci men Type: BLOOD SPECIMENOrdering Facility: [facility] Address: [address] [place] [address] Result Comment: <150 mg/dL, Normal 150-199 mg/dL, Borderline high 200-499 mg/dL, High>499 mg/dL, Very highReference:1. National Cholesterol Education Program ATP III Guideline At-A-Glance Quick Desk Reference: National Heart, Lung, and Blood Bitely. National Institutes of Health. 2001: NIH Publication No. 01-3305. Performed By: #### 2 571-8, 3084-1, 56221-2 ####[facility] [id number] [place] [address] [place] Triglyceride [Mass/Vol]on FASTING TIME 12 hrs Normal [facility] Comment on above: Order Comment: Speci men Type: BLOOD SPECIMENOrdering Facility: [facility] Address: [address] [place] [address] Performed By: #### 2 571-8, 3084-1, 15746-8 ####[facility] [id number] [place] [address] [place] URINALYSIS, DIPSTICK ONLYon 10-01-2023 Bilirubin Ql (U) Negative Normal Negative [facility] Comment on above: Order Comment: Speci men Type: URINE SPECIMENOrdering Facility: [facility] Address: [address] [place] [address] Performed By: #### U A ####[facility] [id number] [place] [address] [place] Clarity (Unsp spec) Clear Normal Clear [facility] Comment on above: Order Comment: Speci men Type: URINE SPECIMENOrdering Facility: [facility] Address: [address] [place] [address] Performed By: #### U A ####[facility] [id number] [place] [address] [place] Color (U) Yellow Normal Yellow [facility] Comment on above: Order Comment: Speci men Type: URINE SPECIMENOrdering Facility: [facility] Address: [address] [place] [address] Performed By: #### U A ####[facility] [id number] [place] [address] [place] Glucose Test strip (U) [Mass/Vol] 3+ Abnormal Negative [facility] Comment on above: Order Comment: Speci men Type: URINE SPECIMENOrdering Facility: [facility] Address: [address] [place] [address] Performed By: #### U A ####[facility] [id number] [place] [address] [place] Hemoglobin Ql (U) Negative Normal Negative [facility] Comment on above: Order Comment: Speci men Type: URINE SPECIMENOrdering Facility: [facility] Address: [address] [place] [address] Performed By: #### U A ####[facility] [id number] [place] [address] [place] Ketones Ql (U) Negative Normal Negative [facility] Comment on above: Order Comment: Speci men Type: URINE SPECIMENOrdering Facility: [facility] Address: [address] [place] [address] Performed By: #### U A ####[facility] [id number] [place] [address] [place] Leukocyte esterase Test strip Ql (U) Negative Normal Negative [facility] Comment on above: Order Comment: Speci men Type: URINE SPECIMENOrdering Facility: [facility] Address: [address] [place] [address] Performed By: #### U A ####[facility] [id number] [place] [address] [place] Nitrite Ql (U) Negative Normal Negative [facility] Comment on above: Order Comment: Speci men Type: URINE SPECIMENOrdering Facility: [facility] Address: [address] [place] [address] Performed By: #### U A ####[facility] [id number] [place] [address] [place] pH (U) 5.5 [pH] Normal <8.5 [facility] Comment on above: Order Comment: Speci men Type: URINE SPECIMENOrdering Facility: [facility] Address: [address] [place] [address] Performed By: #### U A ####[facility] [id number] [place] [address] [place] Protein (U) [Mass/Vol] Negative Normal Negative [facility] Comment on above: Order Comment: Speci men Type: URINE SPECIMENOrdering Facility: [facility] Address: [address] [place] [address] Performed By: #### U A ####[facility] [id number] [place] [address] [place] Specific gravity (U) [Rel density] 1.026 Normal 1.005-1.030 [facility] Comment on above: Order Comment: Speci men Type: URINE SPECIMENOrdering Facility: [facility] Address: [address] [place] [address] Performed By: #### U A ####[facility] [id number] [place] [address] [place] Urobilinogen Ql (U) 0.2 EU/dL Normal 0.2-1.0 EU/dL [facility] Comment on above: Order Comment: Speci men Type: URINE SPECIMENOrdering Facility: [facility] Address: [address] [place] [address] Performed By: #### U A ####[facility] [id number] [place] [address] [place] Urate SerPl-mCncon Urate [Mass/Vol] 3.1 mg/dL Low 4.0-8.1 [facility] Comment on above: Order Comment: Speci men Type: BLOOD SPECIMENOrdering Facility: [facility] Address: [address] [place] [address] Performed By: #### 2 571-8, 3084-1, 63867-6 ####[facility] [id number] [place] [address] [place] aPTT PPPon 10-01-2023 aPTT Coag (PPP) [Time] 28.1 s Normal 23.0-32.4 [facility] Comment on above: Order Comment: Speci men Type: BLOOD SPECIMENOrdering Facility: [facility] Address: [address] [place] [address] Performed By: #### 3 4528-0, 30237-5 ####[facility] [id number] [place] [address] [place] CNPNon 09-05-2023 CNPN Normal [facility] CNOVon 08-29-2023 CNOV Normal [facility] MR CARDIAC FOR MORPH W WO CO [...] Alex Mora MD on 08/08/2023 4:15 PM [facility] MR CARDIAC VELOCITY OTILIO VICTORINO [facility] 08-08-2023 MR CARDIAC VELOCITY OTILIO MAPPING MR [...] Mora MD on 08/08/2023 4:15 PM Normal [facility] XR EYE FOREIGN BODY LOCALIZA ONo 07-31-2023 XR EYE FOREIGN BODY LOCALIZATION XR [...] Jaime MD on 07/31/2023 11:02 AM Normal [facility] Amylase SerPl-cCncon 024 Amylase [Catalytic activity/Vol] 45 U/L Normal 30-104 [facility] Comment on above: Order Comment: Speci men Type: BLOOD SPECIMENOrdering Facility: [facility] Address: [address] [place] [address] Performed By: #### 1 798-8, 59530-7, 47423-4, 2777-1, 3040-3 ####[facility] [id number] [place] [address] [place] BCR/ABL1 P210 %IS PANELon BCR/ABL1 P210 %IS 0.3728 Normal [facility] Comment on above: Order Comment: Speci men Type: BLOOD SPECIMENOrdering Facility: [facility] Address: [address] [place] [address] Performed By: #### P 210P ####[facility] [id number] [place] [address] [place]#### 210ISBP ####[facility] [id number] [place] [address] [place] BCR/ABL1 P210 MR 2.43 Normal [facility] Comment on above: Order Comment: Speci men Type: BLOOD SPECIMENOrdering Facility: [facility] Address: [address] [place] [address] Performed By: #### P 210P ####[facility] [id number] [place] [address] [place]#### 210ISBP ####[facility] [id number] [place] [address] [place] BCR/ABL1 P210 QUANTITATIVE P CR BLOODon 07-09-2023 BCR/ABL1 P210 INTERPRETATION Normal [facility] Comment on above: Order Comment: Speci men Type: BLOOD SPECIMENOrdering Facility: [facility] Address: [address] [place] [address] Result Comment: BCR/ ABL1 p210 Quantitative PCRLaboratory Accession Number: [id number]:DETECTEDMR: 2.43%IS: 0.3728Interpretation:p210 BCR/ABL1 transcripts were detected. Quantitative results areexpressed on the International Scale (IS) and a log molecular response(MR) is calculated. On this scale, a value of less than or equal to0.1% corresponds to a major molecular response (MMR or MR3.0).Methodology:The Table8 QuantideX BCR/ABL IS assay is an FDA-cleared [...] et al, Blood 2006;108:28-37; Janes et al, Inzshkwt1917;29:999-1003As reviewed by Nahed Tavera MD, PhD Performed By: #### P 210P ####[facility] [id number] [place] [address] [place]#### 210ISBP ####[facility] [id number] [place] [address] [place] Bilirub Conj SerPl-mCncon Bilirubin.conjugat ed [Mass/Vol] mg/dL Normal <0.2 [facility] Comment on above: Order Comment: Speci men Type: BLOOD SPECIMENOrdering Facility: [facility] Address: [address] [place] [address] Performed By: #### 1 798-8, 24403-5, 61553-9, 2777-1, 3040-3 ####[facility] [id number] [place] [address] [place] CBC W Auto Differential pane l (Bld)on 07-09-2023 Basophils (Bld) [#/Vol] 0.08 10*3/uL Normal <0.11 [facility] Comment on above: Order Comment: Speci men Type: BLOOD SPECIMENOrdering Facility: [facility] Address: [address] [place] [address] Performed By: #### 5 7021-8 ####[facility] [id number] [place] [address] [place] Basophils/100 WBC (Bld) 0.7 % Normal [facility] Comment on above: Order Comment: Speci men Type: BLOOD SPECIMENOrdering Facility: [facility] Address: [address] [place] [address] Performed By: #### 5 7021-8 ####[facility] [id number] [place] [address] [place] Differential cell count method Nom (Bld) Auto Normal [facility] Comment on above: Order Comment: Speci men Type: BLOOD SPECIMENOrdering Facility: [facility] Address: [address] [place] [address] Performed By: #### 5 7021-8 ####[facility] [place] [id number] [place] [address] [place] Eosinophils (Bld) [#/Vol] 0.69 10*3/uL High <0.46 [facility] Comment on above: Order Comment: Speci men Type: BLOOD SPECIMENOrdering Facility: [facility] Address: [address] [place] [address] Performed By: #### 5 7021-8 ####[facility] [id number] [place] [address] [place] Eosinophils/100 WBC (Bld) 5.9 % Normal [facility] Comment on above: Order Comment: Speci men Type: BLOOD SPECIMENOrdering Facility: [facility] Address: [address] [place] [address] Performed By: #### 5 7021-8 ####[facility] [id number] [place] [address] [place] Erythrocyte distribution width (RBC) [Ratio] 14.3 % Normal 11.5-15.0 [facility] Comment on above: Order Comment: Speci men Type: BLOOD SPECIMENOrdering Facility: [facility] Address: [address] [place] [address] Performed By: #### 5 7021-8 ####[facility] [place] [id number] [place] [address] [place] Hematocrit (Bld) [Volume fraction] 48.2 % Normal 39.0-51.0 [facility] Comment on above: Order Comment: Speci men Type: BLOOD SPECIMENOrdering Facility: [facility] Address: [address] [place] [address] Performed By: #### 5 7021-8 ####[facility] [place] [id number] [place] [address] [place] Hemoglobin (Bld) [Mass/Vol] 16.0 g/dL Normal 13.0-17.0 [facility] Comment on above: Order Comment: Speci men Type: BLOOD SPECIMENOrdering Facility: [facility] Address: [address] [place] [address] Performed By: #### 5 7021-8 ####[facility] [id number] [place] [address] [place] Immature granulocytes (Bld) [#/Vol] 0.05 10*3/uL Normal <0.10 [facility] Comment on above: Order Comment: Speci men Type: BLOOD SPECIMENOrdering Facility: [facility] Address: [address] [place] [address] Performed By: #### 5 7021-8 ####[facility] [place] [id number] [place] [address] [place] Immature granulocytes/100 WBC (Bld) 0.4 % Normal [facility] Comment on above: Order Comment: Speci men Type: BLOOD SPECIMENOrdering Facility: [facility] Address: [address] [place] [address] Performed By: #### 5 7021-8 ####[facility] [id number] [place] [address] [place] Lymphocytes (Bld) [#/Vol] 2.41 10*3/uL Normal 1.00-4.00 [facility] Comment on above: Order Comment: Speci men Type: BLOOD SPECIMENOrdering Facility: [facility] Address: [address] [place] [address] Performed By: #### 5 7021-8 ####[facility] [place] [id number] [place] [address] [place] Lymphocytes/100 WBC (Bld) 20.5 % Normal [facility] Comment on above: Order Comment: Speci men Type: BLOOD SPECIMENOrdering Facility: [facility] Address: [address] [place] [address] Performed By: #### 5 7021-8 ####[facility] [id number] [place] [address] [place] MCH (RBC) [Entitic mass] 25.8 pg Low 26.0-34.0 [facility] Comment on above: Order Comment: Speci men Type: BLOOD SPECIMENOrdering Facility: [facility] Address: [address] [place] [address] Performed By: #### 5 7021-8 ####[facility] [id number] [place] [address] [place] MCHC (RBC) [Mass/Vol] 33.2 g/dL Normal 30.5-36.0 [facility] Comment on above: Order Comment: Speci men Type: BLOOD SPECIMENOrdering Facility: [facility] Address: [address] [place] [address] Performed By: #### 5 7021-8 ####[facility] [place] [id number] [place] [address] [place] MCV (RBC) [Entitic vol] 77.7 fL Low 80.0-100.0 [facility] Comment on above: Order Comment: Speci men Type: BLOOD SPECIMENOrdering Facility: [facility] Address: [address] [place] [address] Performed By: #### 5 7021-8 ####[facility] [id number] [place] [address] [place] Monocytes (Bld) [#/Vol] 0.88 10*3/uL High <0.87 [facility] Comment on above: Order Comment: Speci men Type: BLOOD SPECIMENOrdering Facility: [facility] Address: [address] [place] [address] Performed By: #### 5 7021-8 ####[facility] [id number] [place] [address] [place] Monocytes/100 WBC (Bld) 7.5 % Normal [facility] Comment on above: Order Comment: Speci men Type: BLOOD SPECIMENOrdering Facility: [facility] Address: [address] [place] [address] Performed By: #### 5 7021-8 ####[facility] [place] [id number] [place] [address] [place] Neutrophils (Bld) [#/Vol] 7.66 10*3/uL High 1.45-7.50 [facility] Comment on above: Order Comment: Speci men Type: BLOOD SPECIMENOrdering Facility: [facility] Address: [address] [place] [address] Performed By: #### 5 7021-8 ####[facility] [id number] [place] [address] [place] Neutrophils/100 WBC (Bld) 65.0 % Normal [facility] Comment on above: Order Comment: Speci men Type: BLOOD SPECIMENOrdering Facility: [facility] Address: [address] [place] [address] Performed By: #### 5 7021-8 ####[facility] [id number] [place] [address] [place] Nucleated RBC (Bld) [#/Vol] 10*3/uL Normal <0.01 [facility] Comment on above: Order Comment: Speci men Type: BLOOD SPECIMENOrdering Facility: [facility] Address: [address] [place] [address] Performed By: #### 5 7021-8 ####[facility] [place] [id number] [place] [address] [place] Nucleated RBC/100 WBC (Bld) [Ratio] 0.0 /100 WBC Normal [facility] Comment on above: Order Comment: Speci men Type: BLOOD SPECIMENOrdering Facility: [facility] Address: [address] [place] [address] Performed By: #### 5 7021-8 ####[facility] [id number] [place] [address] [place] Platelet mean volume (Bld) [Entitic vol] 10.1 fL Normal 9.0-12.7 [facility] Comment on above: Order Comment: Speci men Type: BLOOD SPECIMENOrdering Facility: [facility] Address: [address] [place] [address] Performed By: #### 5 7021-8 ####[facility] [id number] [place] [address] [place] Platelets (Bld) [#/Vol] 272 10*3/uL Normal 150-400 [facility] Comment on above: Order Comment: Speci men Type: BLOOD SPECIMENOrdering Facility: [facility] Address: [address] [place] [address] Performed By: #### 5 7021-8 ####[facility] [id number] [place] [address] [place] RBC (Bld) [#/Vol] 6.20 10*6/uL High 4.20-6.00 [facility] Comment on above: Order Comment: Speci men Type: BLOOD SPECIMENOrdering Facility: [facility] Address: [address] [place] [address] Performed By: #### 5 7021-8 ####[facility] [id number] [place] [address] [place] WBC (Bld) [#/Vol] 11.77 10*3/uL High 3.70-11.00 [facility] Comment on above: Order Comment: Speci men Type: BLOOD SPECIMENOrdering Facility: [facility] Address: [address] [place] [address] Performed By: #### 5 7021-8 ####[facility] [id number] [place] [address] [place] CK SerPl-cCncon 07-09-2023 CK [Catalytic activity/Vol] 61 U/L Normal 51-298 [facility] Comment on above: Order Comment: Speci men Type: BLOOD SPECIMENOrdering Facility: [facility] Address: [address] [place] [address] Performed By: #### 2 157-6, HSTNT, 37678-3 ####[facility] [id number] [place] [address] [place] CNNURSEon 07-09-2023 CNNURSE Normal [facility] CNOVSPon 07-09-2023 CNOVSP Normal [facility] Cholest SerPl-mCncon 024 Cholesterol [Mass/Vol] 247 mg/dL High <200 [facility] Comment on above: Order Comment: Speci men Type: BLOOD SPECIMENOrdering Facility: [facility] Address: [address] [place] [address] Result Comment: <200 mg/dL, Desirable 200-239 mg/dL, Borderline high>239 mg/dL, HighReference:1. National Cholesterol Education Program ATP III Guideline At-A-Glance Quick Desk Reference: National Heart, Lung, and Blood Bitely. National Institutes of Health. 2001: NIH Publication No. 01-3305. Performed By: #### 2 093-3 ####[facility] [id number] [place] [address] [place] Cholesterol in LDL Direct as say [Mass/Vol]on 07-09-2023 Cholesterol in LDL [Mass/Vol] 182 mg/dL High <100 [facility] Comment on above: Order Comment: Speci men Type: BLOOD SPECIMENOrdering Facility: [facility] Address: [address] [place] [address] Result Comment: <100 mg/dL, Optimal 100-129 mg/dL, Near optimal/above optimal 130-159 mg/dL, Borderline high 160-189 mg/dL, High>189 mg/dL, Very highSecondary prevention optimal LDL Cholesterol levels are recommended to be < 70 mg/dL Performed By: #### 2 157-6, HSTNT, 34145-1 ####[facility] [id number] [place] [address] [place] Comprehensive metabolic 2000 panelon 07-09-2023 Albumin [Mass/Vol] 4.0 g/dL Normal 3.9-4.9 [facility] Comment on above: Order Comment: Michaeli men Type: BLOOD SPECIMENOrdering Facility: [facility] Address: [address] [place] [address] Performed By: #### 2 4323-8, 3084-1, 2571-8 ####[facility] [id number] [place] [address] [place] ALP [Catalytic activity/Vol] 178 U/L High 38-113 [facility] Comment on above: Order Comment: Speci men Type: BLOOD SPECIMENOrdering Facility: [facility] Address: [address] [place] [address] Performed By: #### 2 4323-8, 3084-1, 8 ####[facility] [id number] [place] [address] [place] ALT [Catalytic activity/Vol] 51 U/L Normal 10-54 [facility] Comment on above: Order Comment: Speci men Type: BLOOD SPECIMENOrdering Facility: [facility] Address: [address] [place] [address] Performed By: #### 2 4323-8, 308-1, 8 ####[facility] [place] [id number] [place] [address] [place] Anion gap [Moles/Vol] 11 mmol/L Normal 9-18 [facility] Comment on above: Order Comment: Speci men Type: BLOOD SPECIMENOrdering Facility: [facility] Address: [address] [place] [address] Performed By: #### 2 4323-8, 308-1, 8 ####[facility] [id number] [place] [address] [place] AST [Catalytic activity/Vol] 34 U/L Normal 14-40 [facility] Comment on above: Order Comment: Speci men Type: BLOOD SPECIMENOrdering Facility: [facility] Address: [address] [place] [address] Performed By: #### 2 4323-8, 3084-1, 2578 ####[facility] [id number] [place] [address] [place] Bilirubin [Mass/Vol] 0.3 mg/dL Normal 0.2-1.3 [facility] Comment on above: Order Comment: Speci men Type: BLOOD SPECIMENOrdering Facility: [facility] Address: [address] [place] [address] Performed By: #### 2 4323-8, 3084-1, 8 ####[facility] [id number] [place] [address] [place] Calcium [Mass/Vol] 9.6 mg/dL Normal 8.5-10.2 [facility] Comment on above: Order Comment: Speci men Type: BLOOD SPECIMENOrdering Facility: [facility] Address: [address] [place] [address] Performed By: #### 2 4323-8, 308-1, 2571-01 ####[facility] [place] [id number] [place] [address] [place] Chloride [Moles/Vol] 101 mmol/L Normal 97-105 [facility] Comment on above: Order Comment: Speci men Type: BLOOD SPECIMENOrdering Facility: [facility] Address: [address] [place] [address] Performed By: #### 2 4323-8, 308-1, 2571-01 ####[facility] [place] [id number] [place] [address] [place] CO2 [Moles/Vol] 23 mmol/L Normal 22-30 [facility] Comment on above: Order Comment: Speci men Type: BLOOD SPECIMENOrdering Facility: [facility] Address: [address] [place] [address] Performed By: #### 2 4323-8, 308-1, 8 ####[facility] [id number] [place] [address] [place] Creatinine [Mass/Vol] 0.63 mg/dL Low 0.73-1.22 [facility] Comment on above: Order Comment: Speci men Type: BLOOD SPECIMENOrdering Facility: [facility] Address: [address] [place] [address] Performed By: #### 2 4323-8, 3084-1, 8 ####[facility] [id number] [place] [address] [place] Creatinine and Glomerular filtration rate.predicted panel (S/P/Bld) 113 mL/min/1.73m??? Normal >=60 [facility] Comment on above: Order Comment: Rosa gaspar Type: BLOOD SPECIMENOrdering Facility: [facility] Address: [address] [place] [address] Result Comment: Najma mated Glomerular Filtration Rate [...] actual GFR. Performed By: #### 2 4323-8, 3084-1, 2570-8 ####[facility] [id number] [place] [address] [place] Glucose [Mass/Vol] 108 mg/dL High 74-99 [facility] Comment on above: Order Comment: Rosa gaspar Type: BLOOD SPECIMENOrdering Facility: [facility] Address: [address] [place] [address] Result Comment: The [place] [employer] (ADA) provides guidance for cutoff [...] of Medical Care in Diabetes 2016, [place] [employer]. Diabetes Care. 2016.39(Suppl 1). Performed By: #### 2 4323-8, 308-1, 8 ####[facility] [id number] [address] [address] [place] Potassium [Moles/Vol] 4.6 mmol/L Normal 3.7-5.1 [facility] Comment on above: Order Comment: Speci men Type: BLOOD SPECIMENOrdering Facility: [facility] Address: [address] [place], [place] [address] Performed By: #### 2 4323-8, 3083-1, 8 ####[facility] [id number] [place] [address] [place] Protein [Mass/Vol] 8.3 g/dL High 6.3-8.0 [facility] Comment on above: Order Comment: Speci men Type: BLOOD SPECIMENOrdering Facility: [facility] Address: [address] [place], [place] [address] Performed By: #### 2 4323-8, 3083-1, 8 ####[facility] [id number] [place] [id number] [place] Sodium [Moles/Vol] 135 mmol/L Low 136-144 [facility] Comment on above: Order Comment: Speci men Type: BLOOD SPECIMENOrdering Facility: [facility] Address: [address] [place] [id number] Performed By: #### 2 4323-8, 1, 8 ####[facility] [id number] [address] [address] [place] Urea nitrogen [Mass/Vol] 10 mg/dL Normal 9-24 [facility] Comment on above: Order Comment: Speci men Type: BLOOD SPECIMENOrdering Facility: [facility] Address: [address] [place], [place] [address] Performed By: #### 2 4323-8, 3084-1, 2571-8 ####[facility] [id number] [place] [address] [place] [id number] 07-09-2023 ECG01 Normal [facility] ECG01 Normal [facility] HIGH SENSITIVITY TROPONIN To n 07-09-2023 Troponin T.cardiac High sensitivity method [Mass/Vol] 27 ng/L High <12 [facility] Comment on above: Order Comment: Rosa gaspar Type: BLOOD SPECIMENOrdering Facility: [facility] Address: [address] [place] [address] Result Comment: When assessing risk for acute [...] MACE. Performed By: #### 2 157-6, HSTNT, 78578-2 ####[facility] [id number] [place] [address] [place] HbA1c (Bld)on 07-09-2023 Average glucose Estimated from glycated hemoglobin (Bld) [Mass/Vol] 134 mg/dL Normal [facility] Comment on above: Order Comment: Rosa gaspar Type: BLOOD SPECIMENOrdering Facility: [facility] Address: [address] [place] [address] Result Comment: eAG: (Estimated average glucose) is a calculated value from HgbA1c and is chemical sales representative of the average blood glucose level in the last 2-3 month period. Performed By: #### 5 5454-3 ####[facility] [id number] [place] [address] [place] HbA1c (Bld) [Mass fraction] 6.3 % High 4.3-5.6 [facility] Comment on above: Order Comment: Rosa men Type: BLOOD SPECIMENOrdering Facility: [facility] Address: [address] [place] [address] Result Comment: Amer [place] Diabetes Association guidelines indicate that patients with HgbA1c in the range 5.7-6.4% are at increased risk for development of diabetes, and intervention by lifestyle modification may be beneficial. HgbA1c greater or equal to 6.5% is considered diagnostic of diabetes. Performed By: #### 5 5454-3 ####[facility] [id number] [place] [address] [place] Lipase SerPl-cCncon 07-09-19 24 Lipase [Catalytic activity/Vol] 37 U/L Normal 16-61 [facility] Comment on above: Order Comment: Speci men Type: BLOOD SPECIMENOrdering Facility: [facility] Address: [address] [place] [address] Performed By: #### 1 798-8, 68821-4, 80047-7, 2777-1, 3040-3 ####[facility] [id number] [place] [address] [place] Magnesium SerPl-mCncon 07-09 Magnesium [Mass/Vol] 2.2 mg/dL Normal 1.7-2.3 [facility] Comment on above: Order Comment: Speci men Type: BLOOD SPECIMENOrdering Facility: [facility] Address: [address] [place] [address] Performed By: #### 1 798-8, 25036-9, 48099-9, 2777-1, 3040-3 ####[facility] [id number] [place] [address] [place] PT panel Coag (PPP)on 2023 INR Coag (PPP) [Relative time] 1.0 {INR} Normal 0.9-1.3 [facility] Comment on above: Order Comment: Speci men Type: BLOOD SPECIMENOrdering Facility: [facility] Address: [address] [place] [address] Result Comment: Nyla min K Antagonist (VKA) Therapeutic Range: INR 2 to 3 (Target INR of 2.5)Note: For patients treated with VKA drugs, such as warfarin, the [place] [employer] 2012 Guideline recommends [...] al. Chest 2012, 141:7S-47SNishelli RA, et al. [facility] 2017, 70: 252-289 Performed By: #### 3 4528-0, 39848-8 ####[facility] [id number] [place] [address] [place] PT Coag (PPP) [Time] 10.9 s Normal 9.7-13.0 [facility] Comment on above: Order Comment: Speci men Type: BLOOD SPECIMENOrdering Facility: [facility] Address: [address] [place] [address] Performed By: #### 3 4528-0, 39559-2 ####[facility] [id number] [place] [address] [place] Phosphate SerPl-mCncon 07-09 Phosphate [Mass/Vol] 3.8 mg/dL Normal 2.7-4.8 [facility] Comment on above: Order Comment: Speci men Type: BLOOD SPECIMENOrdering Facility: [facility] Address: [address] [place] [address] Performed By: #### 1 798-8, 28374-9, 48104-1, 2777-1, 3040-3 ####[facility] [id number] [place] [address] [place] Trigl SerPl-mCncon Triglyceride [Mass/Vol] 162 mg/dL High <150 [facility] Comment on above: Order Comment: Speci men Type: BLOOD SPECIMENOrdering Facility: [facility] Address: [address] [place] [address] Result Comment: <150 mg/dL, Normal 150-199 mg/dL, Borderline high 200-499 mg/dL, High>499 mg/dL, Very highReference:1. National Cholesterol Education Program ATP III Guideline At-A-Glance Quick Desk Reference: National Heart, Lung, and Blood Bitely. National Institutes of Health. 2001: NIH Publication No. 01-3305. Performed By: #### 2 4323-8, 3084-1, 257-8 ####[facility] [id number] [place] [address] [place] Triglyceride [Mass/Vol]on FASTING TIME 13 hrs Normal [facility] Comment on above: Order Comment: Speci men Type: BLOOD SPECIMENOrdering Facility: [facility] Address: [address] [place] [address] Performed By: #### 2 4323-8, 3084-1, 257-8 ####[facility] [id number] [place] [address] [place] URINALYSIS, DIPSTICK ONLYon 07-09-2023 Bilirubin Ql (U) Negative Normal Negative [facility] Comment on above: Order Comment: Speci men Type: URINE SPECIMENOrdering Facility: [facility] Address: [address] [place] [address] Performed By: #### U A ####[facility] [id number] [place] [address] [place] Clarity (Unsp spec) Clear Normal Clear [facility] Comment on above: Order Comment: Speci men Type: URINE SPECIMENOrdering Facility: [facility] Address: [address] [place] [address] Performed By: #### U A ####[facility] [id number] [place] [address] [place] Color (U) Yellow Normal Yellow [facility] Comment on above: Order Comment: Speci men Type: URINE SPECIMENOrdering Facility: [facility] Address: [address] [place] [address] Performed By: #### U A ####[facility] [id number] [place] [address] [place] Glucose Test strip (U) [Mass/Vol] 3+ Abnormal Negative [facility] Comment on above: Order Comment: Speci men Type: URINE SPECIMENOrdering Facility: [facility] Address: [address] [place] [address] Performed By: #### U A ####[facility] [id number] [place] [address] [place] Hemoglobin Ql (U) Negative Normal Negative [facility] Comment on above: Order Comment: Speci men Type: URINE SPECIMENOrdering Facility: [facility] Address: [address] [place] [address] Performed By: #### U A ####[facility] [id number] [place] [address] [place] Ketones Ql (U) Negative Normal Negative [facility] Comment on above: Order Comment: Speci men Type: URINE SPECIMENOrdering Facility: [facility] Address: [address] [place] [address] Performed By: #### U A ####[facility] [id number] [place] [address] [place] Leukocyte esterase Test strip Ql (U) Negative Normal Negative [facility] Comment on above: Order Comment: Speci men Type: URINE SPECIMENOrdering Facility: [facility] Address: [address] [place] [address] Performed By: #### U A ####[facility] [id number] [place] [address] [place] Nitrite Ql (U) Negative Normal Negative [facility] Comment on above: Order Comment: Speci men Type: URINE SPECIMENOrdering Facility: [facility] Address: [address] [place] [address] Performed By: #### U A ####[facility] [id number] [place] [address] [place] pH (U) 6.0 [pH] Normal <8.5 [facility] Comment on above: Order Comment: Speci men Type: URINE SPECIMENOrdering Facility: [facility] Address: [address] [place] [address] Performed By: #### U A ####[facility] [id number] [place] [address] [place] Protein (U) [Mass/Vol] Negative Normal Negative [facility] Comment on above: Order Comment: Speci men Type: URINE SPECIMENOrdering Facility: [facility] Address: [address] [place] [address] Performed By: #### U A ####[facility] [id number] [place] [address] [place] Specific gravity (U) [Rel density] 1.018 Normal 1.005-1.030 [facility] Comment on above: Order Comment: Speci men Type: URINE SPECIMENOrdering Facility: [facility] Address: [address] [place] [address] Performed By: #### U A ####[facility] [id number] [place] [address] [place] Urobilinogen Ql (U) 0.2 EU/dL Normal 0.2-1.0 EU/dL [facility] Comment on above: Order Comment: Speci men Type: URINE SPECIMENOrdering Facility: [facility] Address: [address] [place] [address] Performed By: #### U A ####[facility] [id number] [place] [address] [place] Urate SerPl-mCncon Urate [Mass/Vol] 3.5 mg/dL Low 4.0-8.1 [facility] Comment on above: Order Comment: Speci men Type: BLOOD SPECIMENOrdering Facility: [facility] Address: [address] [place] [address] Performed By: #### 2 4323-8, 3084-1, 2571-8 ####[facility] [id number] [place] [address] [place] aPTT PPPon 07-09-2023 aPTT Coag (PPP) [Time] 27.1 s Normal 23.0-32.4 [facility] Comment on above: Order Comment: Speci men Type: BLOOD SPECIMENOrdering Facility: [facility] Address: [address] [place] [address] Performed By: #### 3 4528-0, 05386-2 ####[facility] [id number] [place] [address] [place] CNPNon 07-01-2023 CNPN Normal [facility] CNOVon 06-13-2023 CNOV Normal [facility] XR SHLDR 4V AP/MAIKOL/LAT/OUTLE T RTon 06-13-2023 XR SHLDR 4V AP/MAIKOL/LAT/OUTLET RT Normal [facility] CNPNon 05-20-2023 CNPN Normal [facility] CNPNon 05-09-2023 CNPN Normal [facility] CNPNon 04-29-2023 CNPN Normal [facility] BCR/ABL1 P190 QUANTITATIVE P CR BONE MARROWon 04-18-2023 BCR/ABL1 P190 INTERPRETATION BONE MARROW Normal [facility] Comment on above: Order Comment: Speci men Type: BONE MARROW SPECIMENOrdering Facility: [facility] Address: [address] [place] [address] Result Comment: BCR/ ABL1 p190 Quantitative PCRLaboratory Accession Number: [id number]:UNDETECTEDNCN: N/AInterpretation:p190 BCR/ABL1 transcripts were not detected. This [...] time PCR was performed using primers for w5m9JOH/ABL1 fusion transcripts and ABL1 transcripts (qPCR BCR/ABL minor,Table8, [place], [place]). This test does not detect p210 (e13a2 or e14a2)or other rare BCR/ABL1 transcripts. This assay has a limit ofquantification of 0.0036% (LR4.4) and limit of detection of 0.0025%(LR4.6).Disclaimer:This test was developed and its performance characteristics determinedby [facility]'s [facility] LaboratoryMedicine Bitely ([facility]). It has not been cleared or approved bythe FDA. [facility] is regulated under CLIA as certified to perform high-complexity testing. This test is used for clinical purposes. It shouldnot be regarded as investigational or for research.Testing and interpretation performed at [facility], [address] [place] [address]. CLIA Number: [id number] reviewed by Lina Langford, PhD, [facility] Performed By: #### P 190B ####[facility] [id number] [address] [place]#### 190NCBB ####[facility] [id number] [address] [place] BCR/ABL1 [id number] (%BCR/ABL1: ABL1)on 04-18-2023 BCR/ABL1 P190 NCN(%BCR/ABL1:ABL1 ) N/A Normal [facility] Comment on above: Order Comment: Rosa gaspar Type: BONE MARROW SPECIMENOrdering Facility: [facility] Address: [address] [place] [address] Performed By: #### P 190B ####[facility] [id number] [place] [address] [place]#### 190NCBB ####[facility] LABCL[facility] [id number] [address] BONE MARROW ANALYSISon 04-18 CASE REPORT Normal [facility] Comment on above: Order Comment: Rosa gaspar Type: BONE MARROW SPECIMENOrdering Facility: [facility] Address: [address] [place] [address] Result Comment: Bone Marrow Pathology Report Case: [id number] Provider: William Howell MD, Collected: 04/18/2023 09:10 AM PhDOrdering Location: [place] [address] Received: 04/18/2023 11:01 AMPathologist: Gemma Torres MDSpecimens: A) - BONE MARROW ASPIRATE RIGHT POSTERIOR ILIAC CREST B) - BONE MARROW BIOPSY RIGHT POSTERIOR ILIAC CREST C) - BONE MARROW CLOT RIGHT POSTERIOR ILIAC CREST D) - Peripheral blood smear Performed By: #### B MRT ####[facility] [id number] [address] [place] DIAGNOSIS COMMENT Normal [facility] Comment on above: Order Comment: Rosa gaspar Type: BONE MARROW SPECIMENOrdering Facility: [facility] Address: [address] [place] [address] Result Comment: The patient has history of [...] is suggested. Performed By: #### B MRT ####[facility] [id number] [address] Result Comment: This test was developed and its performance characteristics determined by [facility]'s [facility] Pathology and Laboratory Medicine [place] ([facility]). It has not been cleared or approved by the FDA. -PLUT is regulated under CLIA as qualified to perform high-complexity testing. This test is used for clinical purposes. It should not be regarded as investigational or for research. Performed By: #### F CLLRFLX, FCLLP ####[facility] [id number] [address] FINAL DIAGNOSIS Normal [facility] Comment on above: Order Comment: Speci men Type: BONE MARROW SPECIMENOrdering Facility: [facility] Address: [address] [place] [address] Result Comment: A-C. Bone marrow, aspirate smear and core biopsy, with clot section:- Normocellular marrow (~50%) with trilineage hematopoiesis and normal M:E ratio.- See comment.D. Peripheral blood smear:- Leukocytosis and mild eosinophilia.HJR 04/21/2023 Performed By: #### B MRT ####[facility] [id number] [address] FINAL PERFORMING LAB Normal [facility] Comment on above: Order Comment: Speci men Type: BONE MARROW SPECIMENOrdering Facility: [facility] Address: [address] [place] [address] Result Comment: Diag nostic interpretation performed at [facility], [facility] [place] [id number] CLIA# [id number] Director: Tico Jeter M.D. Performed By: #### B MRT ####[facility] [id number] [address] [place] Performed By: #### F CLLRFLX, FCLLP ####[facility] [id number] [address] [place] GROSS DESCRIPTION Normal [facility] Comment on above: Order Comment: Speci men Type: BONE MARROW SPECIMENOrdering Facility: [facility] Address: [address] [place] [address] Result Comment: A. B ONE MARROW ASPIRATE [...] Submitted for light microscopy.Gross examination performed at [facility], [address] [place] [address].[place], [place] [address]CL 04/18/2023 7:43 PM Performed By: #### B MRT ####[facility] [id number] [address] [place] MICROSCOPIC DESCRIPTION Normal [facility] Comment on above: Order Comment: Speci men Type: BONE MARROW SPECIMENOrdering Facility: [facility] Address: [address] [place] [address] Result Comment: JOSSY PHERAL BLOOD:CBC (04/18/2023 10:51 [...] quantitative PCR Performed By: #### B MRT ####[facility] LABCLIA [id number] [place] [address] [place] BONE MARROW CHROMOSOME ANALo n 04-18-2023 CHROMOSOME BM Normal [facility] Comment on above: Order Comment: Order ing Facility: [facility] Address: [address] [place] [address] Result Comment: Leena pérez Accession Number: [id number]: Aly HowelloPathologist: BrianSurgical Pathology No: [id number] diagnosis: Chronic Myeloid LeukemiaSpecimen Type: Bone MarrowReceived [...] within the limits ofresolution.No cells with the [place] chromosome as seen in previous studiesfrom December 2014, March 2016, April 2017, April 2019, andApril 2020 were identified in the current study, consistent withcytogenetic remission. Other studies in April 2018, August 2019,September and December 2020, June, November and May 2022 and Octoberemonstrated a 46,XY karyotype.Clinical and pathologic correlation is recommended.As reviewed by Jame Srivastava MDPerformed by [facility] Medicine InstituteDivision of Molecular PathologyCytogenetics Lab, [id number] [address], [place] [address]Phone: Toll free: Performed By: #### C [facility] ####[facility] [id number] [place] [address] [place] BRIEF OP NOTon 04-18-2023 BRIEF OP NOT Normal [facility] CBC W Auto Differential pane l (Bld)on 04-18-2023 Basophils (Bld) [#/Vol] 0.08 10*3/uL <0.11 k/uL [facility] Basophils/100 WBC (Bld) 0.6 % [facility] Differential cell count method Nom (Bld) Auto [facility] Eosinophils (Bld) [#/Vol] 0.60 10*3/uL High <0.46 k/uL [facility] Eosinophils/100 WBC (Bld) 4.7 % [facility] Erythrocyte distribution width (RBC) [Ratio] 14.3 % 11.5 - 15.0 % [facility] Hematocrit (Bld) [Volume fraction] 47.6 % 39.0 - 51.0 % [facility] Hemoglobin (Bld) [Mass/Vol] 16.0 g/dL 13.0 - 17.0 g/dL [facility] Immature granulocytes (Bld) [#/Vol] 0.09 10*3/uL <0.10 k/uL [facility] Immature granulocytes/100 WBC (Bld) 0.7 % [facility] Lymphocytes (Bld) [#/Vol] 3.23 10*3/uL 1.00 - 4.00 k/uL [facility] Lymphocytes/100 WBC (Bld) 25.3 % [facility] MCH (RBC) [Entitic mass] 26.7 pg 26.0 - 34.0 pg [facility] MCHC (RBC) [Mass/Vol] 33.6 g/dL 30.5 - 36.0 g/dL [facility] MCV (RBC) [Entitic vol] 79.3 fL Low 80.0 - 100.0 fL [facility] Monocytes (Bld) [#/Vol] 0.86 10*3/uL <0.87 k/uL [facility] Monocytes/100 WBC (Bld) 6.7 % [facility] Neutrophils (Bld) [#/Vol] 7.89 10*3/uL High 1.45 - 7.50 k/uL [facility] Neutrophils/100 WBC (Bld) 62.0 % [facility] Nucleated RBC (Bld) [#/Vol] <0.01 k/uL [facility] Nucleated RBC/100 WBC (Bld) [Ratio] 0.0 /100 WBC [facility] Platelet mean volume (Bld) [Entitic vol] 10.2 fL 9.0 - 12.7 fL [facility] Platelets (Bld) [#/Vol] 275 10*3/uL 150 - 400 k/uL [facility] RBC (Bld) [#/Vol] 6.00 10*6/uL 4.20 - 6.0 0 m/uL [facility] WBC (Bld) [#/Vol] 12.75 10*3/uL High 3.70 - 11 .00 k/uL [facility] Basophils (Bld) [#/Vol] 0.08 10*3/uL Normal <0.11 [facility] Comment on above: Order Comment: Speci men Type: BLOOD SPECIMENOrdering Facility: [facility] Address: [address] [place] [address] Performed By: #### 5 7021-8 ####[facility]CL[facility] [id number] [place] [address] [place] Basophils/100 WBC (Bld) 0.6 % Normal [facility] Comment on above: Order Comment: Speci men Type: BLOOD SPECIMENOrdering Facility: [facility] Address: [address] [place] [address] Performed By: #### 5 7021-8 ####[facility] [id number] [place] [address] [place] Differential cell count method Nom (Bld) Auto Normal [facility] Comment on above: Order Comment: Speci men Type: BLOOD SPECIMENOrdering Facility: [facility] Address: [address] [place] [address] Performed By: #### 5 7021-8 ####[facility]CL[facility] [id number] [place] [address] [place] Eosinophils (Bld) [#/Vol] 0.60 10*3/uL High <0.46 [facility] Comment on above: Order Comment: Speci men Type: BLOOD SPECIMENOrdering Facility: [facility] Address: [address] [place] [address] Performed By: #### 5 7021-8 ####[facility] [id number] [place] [address] [place] Eosinophils/100 WBC (Bld) 4.7 % Normal [facility] Comment on above: Order Comment: Speci men Type: BLOOD SPECIMENOrdering Facility: [facility] Address: [address] [place] [address] Performed By: #### 5 7021-8 ####[facility]CL[facility] [id number] [place] [address] [place] Erythrocyte distribution width (RBC) [Ratio] 14.3 % Normal 11.5-15.0 [facility] Comment on above: Order Comment: Speci men Type: BLOOD SPECIMENOrdering Facility: [facility] Address: [address] [place] [address] Performed By: #### 5 7021-8 ####[facility]CL[facility] [id number] [place] [address] [place] Hematocrit (Bld) [Volume fraction] 47.6 % Normal 39.0-51.0 [facility] Comment on above: Order Comment: Speci men Type: BLOOD SPECIMENOrdering Facility: [facility] Address: [address] [place] [address] Performed By: #### 5 7021-8 ####[facility] [id number] [place] [address] [place] Hemoglobin (Bld) [Mass/Vol] 16.0 g/dL Normal 13.0-17.0 [facility] Comment on above: Order Comment: Speci men Type: BLOOD SPECIMENOrdering Facility: [facility] Address: [address] [place] [address] Performed By: #### 5 7021-8 ####[facility]CL[facility] [id number] [place] [address] [place] Immature granulocytes (Bld) [#/Vol] 0.09 10*3/uL Normal <0.10 [facility] Comment on above: Order Comment: Speci men Type: BLOOD SPECIMENOrdering Facility: [facility] Address: [address] [place] [address] Performed By: #### 5 7021-8 ####[facility]CL[facility] [id number] [place] [address] [place] Immature granulocytes/100 WBC (Bld) 0.7 % Normal [facility] Comment on above: Order Comment: Speci men Type: BLOOD SPECIMENOrdering Facility: [facility] Address: [address] [place] [address] Performed By: #### 5 7021-8 ####[facility]CL[facility] [id number] [place] [address] [place] Lymphocytes (Bld) [#/Vol] 3.23 10*3/uL Normal 1.00-4.00 [facility] Comment on above: Order Comment: Speci men Type: BLOOD SPECIMENOrdering Facility: [facility] Address: [address] [place] [address] Performed By: #### 5 7021-8 ####[facility] [id number] [place] [address] [place] Lymphocytes/100 WBC (Bld) 25.3 % Normal [facility] Comment on above: Order Comment: Speci men Type: BLOOD SPECIMENOrdering Facility: [facility] Address: [address] [place] [address] Performed By: #### 5 7021-8 ####[facility] [id number] [place] [address] [place] MCH (RBC) [Entitic mass] 26.7 pg Normal 26.0-34.0 [facility] Comment on above: Order Comment: Speci men Type: BLOOD SPECIMENOrdering Facility: [facility] Address: [address] [place] [address] Performed By: #### 5 7021-8 ####[facility] [id number] [place] [address] [place] MCHC (RBC) [Mass/Vol] 33.6 g/dL Normal 30.5-36.0 [facility] Comment on above: Order Comment: Speci men Type: BLOOD SPECIMENOrdering Facility: [facility] Address: [address] [place] [address] Performed By: #### 5 7021-8 ####[facility]CL[facility] [id number] [place] [address] [place] MCV (RBC) [Entitic vol] 79.3 fL Low 80.0-100.0 [facility] Comment on above: Order Comment: Speci men Type: BLOOD SPECIMENOrdering Facility: [facility] Address: [address] [place] [address] Performed By: #### 5 7021-8 ####[facility] [id number] [place] [address] [place] Monocytes (Bld) [#/Vol] 0.86 10*3/uL Normal <0.87 [facility] Comment on above: Order Comment: Speci men Type: BLOOD SPECIMENOrdering Facility: [facility] Address: [address] [place] [address] Performed By: #### 5 7021-8 ####[facility] [id number] [place] [address] [place] Monocytes/100 WBC (Bld) 6.7 % Normal [facility] Comment on above: Order Comment: Speci men Type: BLOOD SPECIMENOrdering Facility: [facility] Address: [address] [place] [address] Performed By: #### 5 7021-8 ####[facility] [id number] [place] [address] [place] Neutrophils (Bld) [#/Vol] 7.89 10*3/uL High 1.45-7.50 [facility] Comment on above: Order Comment: Speci men Type: BLOOD SPECIMENOrdering Facility: [facility] Address: [address] [place] [address] Performed By: #### 5 7021-8 ####[facility] [id number] [place] [address] [place] Neutrophils/100 WBC (Bld) 62.0 % Normal [facility] Comment on above: Order Comment: Speci men Type: BLOOD SPECIMENOrdering Facility: [facility] Address: [address] [place] [address] Performed By: #### 5 7021-8 ####[facility] [id number] [place] [address] [place] Nucleated RBC (Bld) [#/Vol] 10*3/uL Normal <0.01 [facility] Comment on above: Order Comment: Speci men Type: BLOOD SPECIMENOrdering Facility: [facility] Address: [address] [place] [address] Performed By: #### 5 7021-8 ####[facility] [id number] [place] [address] [place] Nucleated RBC/100 WBC (Bld) [Ratio] 0.0 /100 WBC Normal [facility] Comment on above: Order Comment: Speci men Type: BLOOD SPECIMENOrdering Facility: [facility] Address: [address] [place] [address] Performed By: #### 5 7021-8 ####[facility] [id number] [place] [address] [place] Platelet mean volume (Bld) [Entitic vol] 10.2 fL Normal 9.0-12.7 [facility] Comment on above: Order Comment: Speci men Type: BLOOD SPECIMENOrdering Facility: [facility] Address: [address] [place] [address] Performed By: #### 5 7021-8 ####[facility] [id number] [place] [address] [place] Platelets (Bld) [#/Vol] 275 10*3/uL Normal 150-400 [facility] Comment on above: Order Comment: Speci men Type: BLOOD SPECIMENOrdering Facility: [facility] Address: [address] [place] [address] Performed By: #### 5 7021-8 ####[facility] [id number] [address] [address] [place] RBC (Bld) [#/Vol] 6.00 10*6/uL Normal 4.20-6.00 [facility] Comment on above: Order Comment: Speci men Type: BLOOD SPECIMENOrdering Facility: [facility] Address: [address] [place] [address] Performed By: #### 5 7021-8 ####[facility] [id number] [place] [address] [place] WBC (Bld) [#/Vol] 12.75 10*3/uL High 3.70-11.00 [facility] Comment on above: Order Comment: Speci men Type: BLOOD SPECIMENOrdering Facility: [facility] Address: [address] [place] [address] Performed By: #### 5 7021-8 ####[facility] [id number] [place] [address] [place] [address] BIOPSY BONE MARROW (HEMO) on 04-18-2023 CT BIOPSY BONE MARROW (HEMO) Normal [facility] Comprehensive metabolic 2000 panelon 04-18-2023 Albumin [Mass/Vol] 3.9 g/dL Normal 3.9-4.9 [facility] Comment on above: Order Comment: Speci men Type: BLOOD SPECIMENOrdering Facility: [facility] Address: [address] [place] [address] Performed By: #### 2 4323-8 ####[facility] [id number] [place] [address] [place] ALP [Catalytic activity/Vol] 241 U/L High 38-113 [facility] Comment on above: Order Comment: Speci men Type: BLOOD SPECIMENOrdering Facility: [facility] Address: [address] [place] [address] Performed By: #### 2 4323-8 ####[facility]CL[facility] [id number] [place] [address] [place] ALT [Catalytic activity/Vol] 48 U/L Normal 10-54 [facility] Comment on above: Order Comment: Speci men Type: BLOOD SPECIMENOrdering Facility: [facility] Address: [address] [place] [address] Performed By: #### 2 4323-8 ####[facility] [id number] [place] [address] [place] Anion gap [Moles/Vol] 12 mmol/L Normal 9-18 [facility] Comment on above: Order Comment: Speci men Type: BLOOD SPECIMENOrdering Facility: [facility] Address: [address] [place] [address] Performed By: #### 2 4323-8 ####[facility] [id number] [place] [address] [place] AST [Catalytic activity/Vol] 38 U/L Normal 14-40 [facility] Comment on above: Order Comment: Speci men Type: BLOOD SPECIMENOrdering Facility: [facility] Address: [address] [place] [address] Performed By: #### 2 4323-8 ####[facility] [id number] [place] [address] [place] Bilirubin [Mass/Vol] 0.4 mg/dL Normal 0.2-1.3 [facility] Comment on above: Order Comment: Speci men Type: BLOOD SPECIMENOrdering Facility: [facility] Address: [address] [place] [address] Performed By: #### 2 4323-8 ####[facility] [id number] [place] [address] [place] Calcium [Mass/Vol] 10.0 mg/dL Normal 8.5-10.2 [facility] Comment on above: Order Comment: Speci men Type: BLOOD SPECIMENOrdering Facility: [facility] Address: [address] [place] [address] Performed By: #### 2 4323-8 ####[facility] [id number] [place] [address] [place] Chloride [Moles/Vol] 100 mmol/L Normal 97-105 [facility] Comment on above: Order Comment: Speci men Type: BLOOD SPECIMENOrdering Facility: [facility] Address: [address] [place] [address] Performed By: #### 2 4323-8 ####[facility] [id number] [place] [address] [place] CO2 [Moles/Vol] 23 mmol/L Normal 22-30 [facility] Comment on above: Order Comment: Speci men Type: BLOOD SPECIMENOrdering Facility: [facility] Address: [address] [place] [address] Performed By: #### 2 4323-8 ####[facility] [id number] [place] [address] [place] Creatinine [Mass/Vol] 0.72 mg/dL Low 0.73-1.22 [facility] Comment on above: Order Comment: Speci men Type: BLOOD SPECIMENOrdering Facility: [facility] Address: [address] [place] [address] Performed By: #### 2 4323-8 ####[facility] [id number] [place] [address] [place] Creatinine and Glomerular filtration rate.predicted panel (S/P/Bld) 109 mL/min/1.73m??? Normal >=60 [facility] Comment on above: Order Comment: Speci men Type: BLOOD SPECIMENOrdering Facility: [facility] Address: [address] [place] [address] Result Comment: Najma mated Glomerular Filtration Rate [...] actual GFR. Performed By: #### 2 4323-8 ####[facility] [id number] [place] [id number] [place] Glucose [Mass/Vol] 126 mg/dL High 74-99 [facility] Comment on above: Order Comment: Speci hubert Type: BLOOD SPECIMENOrdering Facility: [facility] Address: [address] [place] [address] Result Comment: The [place] [employer] (ADA) provides guidance for cutoff [...] of Medical Care in Diabetes 2016, [place] [employer]. Diabetes Care. 2016.39(Suppl 1). Performed By: #### 2 4323-8 ####[facility] [id number] [place] [id number] [place] Potassium [Moles/Vol] 4.7 mmol/L Normal 3.7-5.1 [facility] Comment on above: Order Comment: Rosa gaspar Type: BLOOD SPECIMENOrdering Facility: [facility] Address: [address] [place] [address] Performed By: #### 2 4323-8 ####[facility] [id number] [address] [address] [place] Protein [Mass/Vol] 8.6 g/dL High 6.3-8.0 [facility] Comment on above: Order Comment: Speci men Type: BLOOD SPECIMENOrdering Facility: [facility] Address: [address] [place] [address] Performed By: #### 2 4323-8 ####[facility] [id number] [place] [address] [place] Sodium [Moles/Vol] 135 mmol/L Low 136-144 [facility] Comment on above: Order Comment: Speci men Type: BLOOD SPECIMENOrdering Facility: [facility] Address: [address] [place] [address] Performed By: #### 2 4323-8 ####[facility] [id number] [place] [address] [place] Urea nitrogen [Mass/Vol] 12 mg/dL Normal 9-24 [facility] Comment on above: Order Comment: Speci men Type: BLOOD SPECIMENOrdering Facility: [facility] Address: [address] [place] [address] Performed By: #### 2 4323-8 ####[facility] [id number] [place] [address] [place] DNA EXTRACTION BONE MARROW ( BUFFY COAT)on 04-18-2023 DNA EXTRACTION BONE MARROW (BUFFY COAT) Normal [facility] Comment on above: Order Comment: Speci men Type: BONE MARROW SPECIMENOrdering Facility: [facility] Address: [address] [place] [address] Result Comment: This specimen was received and successfully processed for future DNA purification should molecular testing be needed. Specimens will be available for 3 years from date of collection.To order testing on this specimen for [facility] patients, please place an [facility] order for DNA and RNA Clinical Testing ([id number]). To order testing for patients outside of the [facility] system, please request DNA and RNA for Clinical Testing, order code [id number].If additional paperwork is required for testing, please send completed forms via secure email to . Performed By: #### N [facility] ####[facility] LIM[facility]CL[facility] [id number] [address] [place] FLOW CYTOMETRY FOR LEUKEMIA/ LYMPHOMA (FCLL) PERFORMABLEon 04-18-2023 FLOW CYTOMETRY ORDER STATUS See Results in chart under F case ID Normal [facility] Comment on above: Order Comment: Speci men Type: BONE MARROW SPECIMENOrdering Facility: [facility] Address: [address] [place] [address] Performed By: #### F CLLRFLX, FCLLP ####[facility] [id number] [address] [place] FLOW CYTOMETRY FOR LEUKEMIA/ LYMPHOMA (FCLL) REFLEXon 04-18-2023 FLOW CYTOMETRY RESULTS Normal [facility] Comment on above: Order Comment: Speci men Type: BONE MARROW SPECIMENOrdering Facility: [facility] Address: [address] [place] [address] Result Comment: Spec imen type: Bone marrow aspirateViability: 99%Morphology comments: See associated bone marrow biopsy report.Flow Cytometry Bone Marrow ImmunophenotypingMarker Normal Cell Type Result (Lymphocytes)CD3 T-cells Normal PatternCD4 T-cell subset Normal PatternCD5 T-cells Normal PatternCD7 T/NK-cells Normal PatternCD8 T-cell subset Normal YbtzwpxQS78 B-cell subset Normal LtnywriAG29 Myeloid Normal XzclymbRG19/56 NK cells Normal TpescrqST06 B-cells Normal LdnzcerAI88 B-cells Normal HnwnbvxGY29 B-cells subset Normal FleeocoDG28 Blast Normal QmtbcqxPC13 Costa-leukocyte Normal EnxtdfyQT347 Dendritic Normal PpubmlcDT032 B-cells Normal Patternkappa/lambda B-cells Normal PatternFlow cytometric [...] are immunophenotypically unremarkable. Performed By: #### F CLLRFLX FCLLP ####[facility] [id number] [place] [address] [place] GROSS DESCRIPTION A. Bone Marrow Normal [facility] Comment on above: Order Comment: Speci men Type: BONE MARROW SPECIMENOrdering Facility: [facility] Address: [address] [place] [address] Result Comment: RECE IVED 4 MLS BONE MARROW IN HEPARIN Performed By: #### F CLLRFLX, FCLLP ####[facility] [id number] [place] [address] [place] INTERPRETATION Normal [facility] Comment on above: Order Comment: Speci men Type: BONE MARROW SPECIMENOrdering Facility: [facility] Address: [address] [place] [address] Result Comment: Ther e is no immunophenotypic evidence of involvement by a lymphoproliferative disorder or abnormal blast population. Correlation with the clinical and bone marrow histopathologic findings is suggested.HJR/RTM 04/21/2023 Performed By: #### F CLLRFLX, FCLLP ####[facility] LABCLIA [id number] [place] [address] [place] HISTORY PHYSICALon HISTORY PHYSICAL Normal [facility] NURSING PROGon 04-18-2023 NURSING PROG Normal [facility] PT EDon 04-18-2023 PT ED Normal [facility] ALBUMIN/CREAT RATIO RND URon 04-17-2023 Albumin DL <= 20 mg/L (U) [Mass/Vol] 32.8 mg/L Normal [facility] Comment on above: Order Comment: Speci men Type: URINE SPECIMENOrdering Facility: [facility] Address: [address] [place] [address] Performed By: #### U ACR ####[facility] LABCLIA [id number] [place] [address] [place] Albumin/Creatinine (U) [Mass ratio] 44 mg/g High <30 [facility] Comment on above: Order Comment: Speci men Type: URINE SPECIMENOrdering Facility: [facility] Address: [address] [place] [address] Result Comment: Adul t Male and Female Nephrotic Criteria:<30 mg/g is considered normal to mildly -264 mg/g is considered moderately increased>300 mg/g is considered severely increasedKDIGO. (2013). KDIGO 2012 Clinical Practice Guideline for the Evaluation and Management of Chronic Kidney Disease. Official Journal of the International Society of Nephrology, 3(1), 1-150. Performed By: #### U ACR ####[facility] LABIA [id number] [place] [address] [place] Creatinine (U) [Mass/Vol] 73.8 mg/dL Normal 20.0-300.0 [facility] Comment on above: Order Comment: Speci men Type: URINE SPECIMENOrdering Facility: [facility] Address: [address] [place] [address] Performed By: #### U ACR ####[facility] LABIA [id number] [place] [address] [place] CNOVon 04-17-2023 CNOV Normal [facility] Amylase SerPl-cCncon 023 Amylase [Catalytic activity/Vol] 43 U/L Normal 30-104 [facility] Comment on above: Order Comment: Speci men Type: BLOOD SPECIMENOrdering Facility: [facility] Address: [address] [place] [address] Performed By: #### 1 5152-2, 1798-8, 31912-7, 3040-3, 2777-1 ####[facility] [id number] [place] [address] [place] BCR/ABL1 P210 %IS PANELon BCR/ABL1 P210 %IS 0.3411 Normal [facility] Comment on above: Order Comment: Speci men Type: BLOOD SPECIMENOrdering Facility: [facility] Address: [address] [place] [address] Performed By: #### P 210P ####[facility] LIMSCL[facility] [id number] [address] [place]#### 210ISBP ####[facility] LABCLIA [id number] [address] [place] BCR/ABL1 P210 MR 2.47 Normal [facility] Comment on above: Order Comment: Speci men Type: BLOOD SPECIMENOrdering Facility: [facility] Address: [address] [place] [address] Performed By: #### P 210P ####[facility] LIMSCLIA [id number] [place] [address] [place]#### 210ISBP ####[facility] LABCLIA [id number] [address] [place] BCR/ABL1 P210 QUANTITATIVE P CR BLOODon 04-16-2023 BCR/ABL1 P210 INTERPRETATION Normal [facility] Comment on above: Order Comment: Speci men Type: BLOOD SPECIMENOrdering Facility: [facility] Address: [address] [place] [address] Result Comment: BCR/ ABL1 p210 Quantitative PCRLaboratory Accession Number: [id number]:DETECTEDMR: 2.47%IS: 0.3411Interpretation:p210 BCR/ABL1 transcripts were detected. Quantitative results areexpressed on the International Scale (IS) and a log molecular response(MR) is calculated. On this scale, a value of less than or equal to0.1% corresponds to a major molecular response (MMR or MR3.0).Methodology:The Table8 QuantideX BCR/ABL IS assay is an FDA-cleared [...] et al, Blood 2006;108:28-37; Janes et al, Fuldpbbz9721;29:999-1003As reviewed by Lina Langford, PhD, [facility] Performed By: #### P 210P ####[facility] LIMSCLIA [id number] [place] [address] [place]#### 210ISBP ####[facility] LABIA [id number] [place] [address] [place] Bilirub Conj SerPl-mCncon Bilirubin.conjugat ed [Mass/Vol] mg/dL Normal <0.2 [facility] Comment on above: Order Comment: Speci men Type: BLOOD SPECIMENOrdering Facility: [facility] Address: [address] [place] [address] Performed By: #### 1 5152-2, 1798-8, 12804-0, 3040-3, 2777-1 ####[facility] [id number] [place] [address] [place] CBC W Auto Differential pane l (Bld)on 04-16-2023 Basophils (Bld) [#/Vol] 0.10 10*3/uL Normal <0.11 [facility] Comment on above: Order Comment: Speci men Type: BLOOD SPECIMENOrdering Facility: [facility] Address: [address] [place] [address] Performed By: #### 5 7021-8 ####[facility] [id number] [place] [address] [place] Basophils/100 WBC (Bld) 0.8 % Normal [facility] Comment on above: Order Comment: Speci men Type: BLOOD SPECIMENOrdering Facility: [facility] Address: [address] [place] [address] Performed By: #### 5 7021-8 ####[facility] [id number] [place] [address] [place] Differential cell count method Nom (Bld) Auto Normal [facility] Comment on above: Order Comment: Speci men Type: BLOOD SPECIMENOrdering Facility: [facility] Address: [address] [place] [address] Performed By: #### 5 7021-8 ####[facility] [place] [id number] [place] [address] [place] Eosinophils (Bld) [#/Vol] 0.54 10*3/uL High <0.46 [facility] Comment on above: Order Comment: Speci men Type: BLOOD SPECIMENOrdering Facility: [facility] Address: [address] [place] [address] Performed By: #### 5 7021-8 ####[facility] [id number] [place] [address] [place] Eosinophils/100 WBC (Bld) 4.5 % Normal [facility] Comment on above: Order Comment: Speci men Type: BLOOD SPECIMENOrdering Facility: [facility] Address: [address] [place] [address] Performed By: #### 5 7021-8 ####[facility] [id number] [place] [address] [place] Erythrocyte distribution width (RBC) [Ratio] 14.3 % Normal 11.5-15.0 [facility] Comment on above: Order Comment: Speci men Type: BLOOD SPECIMENOrdering Facility: [facility] Address: [address] [place] [address] Performed By: #### 5 7021-8 ####[facility] [id number] [place] [address] [place] Hematocrit (Bld) [Volume fraction] 50.5 % Normal 39.0-51.0 [facility] Comment on above: Order Comment: Speci men Type: BLOOD SPECIMENOrdering Facility: [facility] Address: [address] [place] [address] Performed By: #### 5 7021-8 ####[facility] [id number] [place] [address] [place] Hemoglobin (Bld) [Mass/Vol] 16.9 g/dL Normal 13.0-17.0 [facility] Comment on above: Order Comment: Speci men Type: BLOOD SPECIMENOrdering Facility: [facility] Address: [address] [place] [address] Performed By: #### 5 7021-8 ####[facility] [place] [id number] [place] [address] [place] Immature granulocytes (Bld) [#/Vol] 0.08 10*3/uL Normal <0.10 [facility] Comment on above: Order Comment: Speci men Type: BLOOD SPECIMENOrdering Facility: [facility] Address: [address] [place] [address] Performed By: #### 5 7021-8 ####[facility] [id number] [place] [address] [place] Immature granulocytes/100 WBC (Bld) 0.7 % Normal [facility] Comment on above: Order Comment: Speci men Type: BLOOD SPECIMENOrdering Facility: [facility] Address: [address] [place] [address] Performed By: #### 5 7021-8 ####[facility] [id number] [place] [address] [place] Lymphocytes (Bld) [#/Vol] 2.46 10*3/uL Normal 1.00-4.00 [facility] Comment on above: Order Comment: Speci men Type: BLOOD SPECIMENOrdering Facility: [facility] Address: [address] [place] [address] Performed By: #### 5 7021-8 ####[facility] [id number] [place] [address] [place] Lymphocytes/100 WBC (Bld) 20.6 % Normal [facility] Comment on above: Order Comment: Speci men Type: BLOOD SPECIMENOrdering Facility: [facility] Address: [address] [place] [address] Performed By: #### 5 7021-8 ####[facility] [place] [id number] [place] [address] [place] MCH (RBC) [Entitic mass] 26.5 pg Normal 26.0-34.0 [facility] Comment on above: Order Comment: Speci men Type: BLOOD SPECIMENOrdering Facility: [facility] Address: [address] [place] [address] Performed By: #### 5 7021-8 ####[facility] [place] [id number] [place] [address] [place] MCHC (RBC) [Mass/Vol] 33.5 g/dL Normal 30.5-36.0 [facility] Comment on above: Order Comment: Speci men Type: BLOOD SPECIMENOrdering Facility: [facility] Address: [address] [place] [address] Performed By: #### 5 7021-8 ####[facility] [id number] [place] [address] [place] MCV (RBC) [Entitic vol] 79.2 fL Low 80.0-100.0 [facility] Comment on above: Order Comment: Speci men Type: BLOOD SPECIMENOrdering Facility: [facility] Address: [address] [place] [address] Performed By: #### 5 7021-8 ####[facility] [id number] [place] [address] [place] Monocytes (Bld) [#/Vol] 0.71 10*3/uL Normal <0.87 [facility] Comment on above: Order Comment: Speci men Type: BLOOD SPECIMENOrdering Facility: [facility] Address: [address] [place] [address] Performed By: #### 5 7021-8 ####[facility] [id number] [place] [address] [place] Monocytes/100 WBC (Bld) 5.9 % Normal [facility] Comment on above: Order Comment: Speci men Type: BLOOD SPECIMENOrdering Facility: [facility] Address: [address] [place] [address] Performed By: #### 5 7021-8 ####[facility] [id number] [place] [address] [place] Neutrophils (Bld) [#/Vol] 8.06 10*3/uL High 1.45-7.50 [facility] Comment on above: Order Comment: Speci men Type: BLOOD SPECIMENOrdering Facility: [facility] Address: [address] [place] [address] Performed By: #### 5 7021-8 ####[facility] [id number] [place] [address] [place] Neutrophils/100 WBC (Bld) 67.5 % Normal [facility] Comment on above: Order Comment: Speci men Type: BLOOD SPECIMENOrdering Facility: [facility] Address: [address] [place] [address] Performed By: #### 5 7021-8 ####[facility] [id number] [place] [address] [place] Nucleated RBC (Bld) [#/Vol] 10*3/uL Normal <0.01 [facility] Comment on above: Order Comment: Speci men Type: BLOOD SPECIMENOrdering Facility: [facility] Address: [address] [place] [address] Performed By: #### 5 7021-8 ####[facility] [id number] [place] [address] [place] Nucleated RBC/100 WBC (Bld) [Ratio] 0.0 /100 WBC Normal [facility] Comment on above: Order Comment: Speci men Type: BLOOD SPECIMENOrdering Facility: [facility] Address: [address] [place] [address] Performed By: #### 5 7021-8 ####[facility] [id number] [place] [address] [place] Platelet mean volume (Bld) [Entitic vol] 9.8 fL Normal 9.0-12.7 [facility] Comment on above: Order Comment: Speci men Type: BLOOD SPECIMENOrdering Facility: [facility] Address: [address] [place] [address] Performed By: #### 5 7021-8 ####[facility] [id number] [place] [address] [place] Platelets (Bld) [#/Vol] 297 10*3/uL Normal 150-400 [facility] Comment on above: Order Comment: Speci men Type: BLOOD SPECIMENOrdering Facility: [facility] Address: [address] [place] [address] Performed By: #### 5 7021-8 ####[facility] [id number] [place] [address] [place] RBC (Bld) [#/Vol] 6.38 10*6/uL High 4.20-6.00 [facility] Comment on above: Order Comment: Speci men Type: BLOOD SPECIMENOrdering Facility: [facility] Address: [address] [place] [address] Performed By: #### 5 7021-8 ####[facility] [id number] [place] [address] [place] WBC (Bld) [#/Vol] 11.95 10*3/uL High 3.70-11.00 [facility] Comment on above: Order Comment: Speci men Type: BLOOD SPECIMENOrdering Facility: [facility] Address: [address] [place] [address] Performed By: #### 5 7021-8 ####[facility] [id number] [place] [address] [place] CK SerPl-cCncon 04-16-2023 CK [Catalytic activity/Vol] 75 U/L Normal 51-298 [facility] Comment on above: Order Comment: Speci men Type: BLOOD SPECIMENOrdering Facility: [facility] Address: [address] [place] [address] Performed By: #### 2 157-6, HSTNT ####[place] [id number] [address] [facility] CNNURSEon 04-16-2023 CNNURSE Normal [facility] CNOVon 04-16-2023 CNOV Normal [facility] CNOVSPon 04-16-2023 CNOVSP Normal [facility] Cholest SerPl-mCncon 023 Cholesterol [Mass/Vol] 282 mg/dL High <200 [facility] Comment on above: Order Comment: Speci men Type: BLOOD SPECIMENOrdering Facility: [facility] Address: [address] [place] [address] Result Comment: <200 mg/dL, Desirable 200-239 mg/dL, Borderline high>239 mg/dL, HighReference:1. National Cholesterol Education Program ATP III Guideline At-A-Glance Quick Desk Reference: National Heart, Lung, and Blood Bitely. National Institutes of Health. 2001: NIH Publication No. 01-3305. Performed By: #### 2 093-3 ####[facility] [id number] [address] [place] Comprehensive metabolic 2000 panelon 04-16-2023 Albumin [Mass/Vol] 4.3 g/dL Normal 3.9-4.9 [facility] Comment on above: Order Comment: Speci men Type: BLOOD SPECIMENOrdering Facility: [facility] Address: [address] [place] [address] Performed By: #### 3 084-1, 60963-3, 2571-01 ####[facility] [id number] [place] [address] [place] ALP [Catalytic activity/Vol] 237 U/L High 38-113 [facility] Comment on above: Order Comment: Speci men Type: BLOOD SPECIMENOrdering Facility: [facility] Address: [address] [place] [address] Performed By: #### 3 084-1, , 2571-01 ####[facility] [place] [id number] [place] [address] [place] ALT [Catalytic activity/Vol] 71 U/L High 10-54 [facility] Comment on above: Order Comment: Speci men Type: BLOOD SPECIMENOrdering Facility: [facility] Address: [address] [place] [address] Performed By: #### 3 084-1, , 2571-01 ####[facility] [id number] [place] [address] [place] Anion gap [Moles/Vol] 10 mmol/L Normal 9-18 [facility] Comment on above: Order Comment: Speci men Type: BLOOD SPECIMENOrdering Facility: [facility] Address: [address] [place] [address] Performed By: #### 3 084-1, 81508-8, 2571-01 ####[facility] [id number] [place] [address] [place] AST [Catalytic activity/Vol] 42 U/L High 14-40 [facility] Comment on above: Order Comment: Speci men Type: BLOOD SPECIMENOrdering Facility: [facility] Address: [address] [place] [address] Performed By: #### 3 084-1, 25437-8, 2571-01 ####[facility] [place] [id number] [place] [address] [place] Bilirubin [Mass/Vol] 0.5 mg/dL Normal 0.2-1.3 [facility] Comment on above: Order Comment: Speci men Type: BLOOD SPECIMENOrdering Facility: [facility] Address: [address] [place] [address] Performed By: #### 3 084-1, 66955-9, 2571-01 ####[facility] [place] [id number] [place] [address] [place] Calcium [Mass/Vol] 9.9 mg/dL Normal 8.5-10.2 [facility] Comment on above: Order Comment: Speci men Type: BLOOD SPECIMENOrdering Facility: [facility] Address: [address] [place] [address] Performed By: #### 3 084-1, 72050-6, 2571-01 ####[facility] [place] [id number] [place] [address] [place] Chloride [Moles/Vol] 99 mmol/L Normal 97-105 [facility] Comment on above: Order Comment: Speci men Type: BLOOD SPECIMENOrdering Facility: [facility] Address: [address] [place] [address] Performed By: #### 3 084-1, 16958-0, 2571-01 ####[facility] [id number] [place] [address] [place] CO2 [Moles/Vol] 27 mmol/L Normal 22-30 [facility] Comment on above: Order Comment: Speci men Type: BLOOD SPECIMENOrdering Facility: [facility] Address: [address] [place] [address] Performed By: #### 3 084-1, 05538-4, 2571-01 ####[facility] [id number] [place] [address] [place] Creatinine [Mass/Vol] 0.65 mg/dL Low 0.73-1.22 [facility] Comment on above: Order Comment: Rosa gaspar Type: BLOOD SPECIMENOrdering Facility: [facility] Address: [address] [place] [address] Performed By: #### 3 084-1, , 2571-01 ####[facility] [id number] [place] [address] [place] Creatinine and Glomerular filtration rate.predicted panel (S/P/Bld) 112 mL/min/1.73m??? Normal >=60 [facility] Comment on above: Order Comment: Rosa gaspar Type: BLOOD SPECIMENOrdering Facility: [facility] Address: [address] [place] [address] Result Comment: Najma mated Glomerular Filtration Rate [...] accurately reflect actual GFR. Performed By: #### 3 084-1, , 2571-01 ####[facility] [id number] [place] [address] [place] Glucose [Mass/Vol] 166 mg/dL High 74-99 [facility] Comment on above: Order Comment: Rosa gaspar Type: BLOOD SPECIMENOrdering Facility: [facility] Address: [address] [place] [address] Result Comment: The [place] [employer] (ADA) provides guidance for cutoff [...] of Medical Care in Diabetes 2016, [place] [employer]. Diabetes Care. 2016.39(Suppl 1). Performed By: #### 3 084-1, 91197-0, 2571-01 ####[facility] [id number] [place] [address] [place] Potassium [Moles/Vol] 4.5 mmol/L Normal 3.7-5.1 [facility] Comment on above: Order Comment: Speci men Type: BLOOD SPECIMENOrdering Facility: [facility] Address: [address] [place] [address] Performed By: #### 3 084-1, , 2571-01 ####[facility] [id number] [place] [address] [place] Protein [Mass/Vol] 9.0 g/dL High 6.3-8.0 [facility] Comment on above: Order Comment: Speci men Type: BLOOD SPECIMENOrdering Facility: [facility] Address: [address] [place] [address] Performed By: #### 3 084-1, , 2571-01 ####[facility] [id number] [place] [address] [place] Sodium [Moles/Vol] 136 mmol/L Normal 136-144 [facility] Comment on above: Order Comment: Speci men Type: BLOOD SPECIMENOrdering Facility: [facility] Address: [address] [place] [address] Performed By: #### 3 084-1, 19349-8, 2571-01 ####[facility] [id number] [place] [address] [place] Urea nitrogen [Mass/Vol] 9 mg/dL Normal 9-24 [facility] Comment on above: Order Comment: Rosa gaspar Type: BLOOD SPECIMENOrdering Facility: [facility] Address: [address] [place] [address] Performed By: #### 3 084-1, 18624-8, 2571-8 ####[facility] [place] [id number] [place] [address] [place] [id number] 04-16-2023 ECG01 Normal [facility] ECG01 Normal [facility] ECG01 Normal [facility] ECHOon 04-16-2023 [facility] HIGH SENSITIVITY TROPONIN To n 04-16-2023 Troponin T.cardiac High sensitivity method [Mass/Vol] 28 ng/L High <12 [facility] Comment on above: Order Comment: Rosa gaspar Type: BLOOD SPECIMENOrdering Facility: [facility] Address: [address] [place] [address] Result Comment: When assessing risk for acute [...] MACE. Performed By: #### 2 157-6, HSTNT ####[facility] [id number] [place] [address] [place] Lipase SerPl-cCncon 04-16-20 23 Lipase [Catalytic activity/Vol] 35 U/L Normal 16-61 [facility] Comment on above: Order Comment: Rosa gaspar Type: BLOOD SPECIMENOrdering Facility: [facility] Address: [address] [place] [address] Performed By: #### 1 5152-2, 1798-8, 66731-1, 3040-3, 2777-1 ####[facility] [id number] [place] [id number] [place] Magnesium SerPl-mCncon 04-16 Magnesium [Mass/Vol] 2.1 mg/dL Normal 1.7-2.3 [facility] Comment on above: Order Comment: Speci men Type: BLOOD SPECIMENOrdering Facility: [facility] Address: [address] [place] [address] Performed By: #### 1 5152-2, 1798-8, 51494-6, 3040-3, 2777-1 ####[facility] [id number] [place] [address] [place] PT panel Coag (PPP)on 2022 INR Coag (PPP) [Relative time] 1.0 {INR} Normal 0.9-1.3 [facility] Comment on above: Order Comment: Speci men Type: BLOOD SPECIMENOrdering Facility: [facility] Address: [address] [place] [address] Result Comment: Nyla min K Antagonist (VKA) Therapeutic Range: INR 2 to 3 (Target INR of 2.5)Note: For patients treated with VKA drugs, such as warfarin, the [employer] 2012 Guideline recommends [...] al. Chest 2012, 141:7S-47SNishimura RA, et al. [facility] 2017, 70: 252-289 Performed By: #### 1 4979-9, 41542-7 ####[facility] LABCLIA [id number] [place] [id number] [place] PT Coag (PPP) [Time] 10.9 s Normal 9.7-13.0 [facility] Comment on above: Order Comment: Speci men Type: BLOOD SPECIMENOrdering Facility: [facility] Address: [address] [place] [address] Performed By: #### 1 4979-9, 28102-5 ####[facility] [id number] [address] Phosphate SerPl-mCncon 04-16 Phosphate [Mass/Vol] 4.0 mg/dL Normal 2.7-4.8 [facility] Comment on above: Order Comment: Speci men Type: BLOOD SPECIMENOrdering Facility: [facility] Address: [address] [place] [address] Performed By: #### 1 5152-2, 1798-8, 83131-8, 3040-3, 2777-1 ####[facility] [place] [id number] [address] Trigl SerPl-mCncon Triglyceride [Mass/Vol] 165 mg/dL High <150 [facility] Comment on above: Order Comment: Speci men Type: BLOOD SPECIMENOrdering Facility: [facility] Address: [address] [place] [address] Result Comment: <150 mg/dL, Normal 150-199 mg/dL, Borderline high 200-499 mg/dL, High>499 mg/dL, Very highReference:1. National Cholesterol Education Program ATP III Guideline At-A-Glance Quick Desk Reference: National Heart, Lung, and Blood Bitely. National Institutes of Health. 2001: NIH Publication No. 01-3305. Performed By: #### 3 084-1, 42008-5, 2571-8 ####[facility] [id number] [address] [place] Triglyceride [Mass/Vol]on FASTING TIME 12 hrs Normal [facility] Comment on above: Order Comment: Speci men Type: BLOOD SPECIMENOrdering Facility: [facility] Address: [address] [place] [address] Performed By: #### 3 084-1, 96708-8, 2571-8 ####[facility] [id number] [place] [address] [place] URINALYSIS, DIPSTICK ONLYon 04-16-2023 Bilirubin Ql (U) Negative Normal Negative [facility] Comment on above: Order Comment: Speci men Type: URINE SPECIMENOrdering Facility: [facility] Address: [address] [place] [address] Performed By: #### U A ####[facility] [id number] [place] [address] [place] Clarity (Unsp spec) Clear Normal Clear [facility] Comment on above: Order Comment: Speci men Type: URINE SPECIMENOrdering Facility: [facility] Address: [address] [place] [address] Performed By: #### U A ####[facility] [id number] [place] [address] [place] [facility] Color (U) Yellow Normal Yellow [facility] Comment on above: Order Comment: Speci men Type: URINE SPECIMENOrdering Facility: [facility] Address: [address] [place] [address] Performed By: #### U A ####[facility] LABIA [id number] [place] [address] [place] Glucose Test strip (U) [Mass/Vol] Negative Normal Negative [facility] Comment on above: Order Comment: Speci men Type: URINE SPECIMENOrdering Facility: [facility] Address: [address] [place] [address] Performed By: #### U A ####[facility] LABIA [id number] [place] [address] [place] Hemoglobin Ql (U) Negative Normal Negative [facility] Comment on above: Order Comment: Speci men Type: URINE SPECIMENOrdering Facility: [facility] Address: [address] [place] [address] Performed By: #### U A ####[facility] LABCLIA [id number] [place] [address] [place] Ketones Ql (U) Negative Normal Negative [facility] Comment on above: Order Comment: Speci men Type: URINE SPECIMENOrdering Facility: [facility] Address: [address] [place] [address] Performed By: #### U A ####[facility] LABCLIA [id number] [place] [address] [place] Leukocyte esterase Test strip Ql (U) Negative Normal Negative [facility] Comment on above: Order Comment: Speci men Type: URINE SPECIMENOrdering Facility: [facility] Address: [address] [place] [address] Performed By: #### U A ####[facility] LABCLIA [id number] [place] [address] [place] Nitrite Ql (U) Negative Normal Negative [facility] Comment on above: Order Comment: Speci men Type: URINE SPECIMENOrdering Facility: [facility] Address: [address] [place] [address] Performed By: #### U A ####[facility] LABCLIA [id number] [place] [address] [place] pH (U) 6.5 [pH] Normal <8.5 [facility] Comment on above: Order Comment: Speci men Type: URINE SPECIMENOrdering Facility: [facility] Address: [address] [place] [address] Performed By: #### U A ####[facility]CLIA [id number] [place] [address] [place] Protein (U) [Mass/Vol] Negative Normal Negative [facility] Comment on above: Order Comment: Speci men Type: URINE SPECIMENOrdering Facility: [facility] Address: [address] [place] [address] Performed By: #### U A ####[facility] [id number] [place] [address] [place] Specific gravity (U) [Rel density] 1.006 Normal 1.005-1.030 [facility] Comment on above: Order Comment: Speci men Type: URINE SPECIMENOrdering Facility: [facility] Address: [address] [place] [address] Performed By: #### U A ####[facility] [id number] [place] [address] [place] Urobilinogen Ql (U) 0.2 EU/dL Normal 0.2-1.0 EU/dL [facility] Comment on above: Order Comment: Speci men Type: URINE SPECIMENOrdering Facility: [facility] Address: [address] [place] [address] Performed By: #### U A ####[facility] [id number] [place] [address] [place] Urate SerPl-mCncon 3 Urate [Mass/Vol] 3.4 mg/dL Low 4.0-8.1 [facility] Comment on above: Order Comment: Speci men Type: BLOOD SPECIMENOrdering Facility: [facility] Address: [address] [place] [address] Performed By: #### 3 084-1, 47419-9, 2571-8 ####[facility] [id number] [place] [address] [place] aPTT PPPon 04-16-2023 aPTT Coag (PPP) [Time] 25.9 s Normal 23.0-32.4 [facility] Comment on above: Order Comment: Speci men Type: BLOOD SPECIMENOrdering Facility: [facility] Address: [address] [place] [address] Performed By: #### 1 4979-9, 80745-0 ####[facility] LABCLIA [id number] [facility] [id number] [address] [place] NURSING PROGon 04-11-2023 NURSING PROG Normal [facility] CNPNon 03-04-2023 CNPN Normal [facility] XR pre/post mri xrayon 02-05 XR pre/post mri xray [facility] [place] [address] MRI Report Signed Patient: Derrell Avitia JR MR#: [id number] Acct:[id number] Age/Sex: 52 / M ADM Date: 02/05/23 Loc: [facility] Room: Type: [facility] Attending Dr: Buffy Chung Copies to: ERNESTO Hdz Ordering Provider: ERNESTO Hdz Date of Service: 02/05/23 MR/MR shoulder RT wo con: [id number] ([id number]) XR/XR pre/post mri xray: R SHOULDER PRES [...] Lonny Agarwal M.D.02/05/2023 1:00 PM Dictation Location: [place] [address] Transcribed By: [facility] 02/05/23 1300 Dictated By: Lonny Agarwal DO 02/05/23 1256 Signed By: 02/05/23 1300 Normal [facility] CNPNon 02-03-2023 CNPN Normal [facility] Amylase SerPl-cCncon 023 Amylase [Catalytic activity/Vol] 39 U/L Normal 30-104 [facility] Comment on above: Order Comment: Speci men Type: BLOOD SPECIMENOrdering Facility: [facility] Address: [address] [place] [address] Performed By: #### 2 777-1, 26072-6, 1798-8, 3040-3, 07990-2 ####[facility] [id number] [place] [address] [place] BCR/ABL1 P190 QUANTITATIVE P CR BLOODon 01-22-2023 BCR/ABL1 P190 INTERPRETATION Normal [facility] Comment on above: Order Comment: Speci men Type: BLOOD SPECIMENOrdering Facility: [facility] Address: [address] [place] [address] Result Comment: BCR/ ABL1 p190 Quantitative PCRLaboratory Accession Number: [id number]:UNDETECTEDNCN: N/AInterpretation:p190 BCR/ABL1 transcripts were not detected. This [...] time PCR was performed using primers for c9j0HRP/ABL1 fusion transcripts and ABL1 transcripts (qPCR BCR/ABL minor,Table8, [place], [place]). This test does not detect p210 (e13a2 or e14a2)or other rare BCR/ABL1 transcripts. This assay has a limit ofquantification of 0.0036% (LR4.4) and limit of detection of 0.0025%(LR4.6).Disclaimer:This test was developed and its performance characteristics determinedby [facility]'s [facility] LaboratoryMed[facility] Bitely ([facility]). It has not been cleared or approved bythe FDA. -[facility] is regulated under CLIA as certified to perform high-complexity testing. This test is used for clinical purposes. It shouldnot be regarded as investigational or for research.Testing and interpretation performed at [facility], [address] [place] [address]. CLIA Number: [id number] reviewed by Chaparro Orellana MD Performed By: #### 1 90NCBP, 210ISBP ####[facility] LABCLIA [id number] [address] [place]#### P210P, P190P ####[facility] LIM[facility] [id number] [address] OF [facility] BCR/ABL1 [id number] BLOOD( AND BCR/ABL1:ABL1)on 01-22-2023 BCR/ABL1 P190 NCN(%BCR/ABL1:ABL1 ) N/A Normal [facility] Comment on above: Order Comment: Speci men Type: BLOOD SPECIMENOrdering Facility: [facility] Address: [address] [place] [address] Performed By: #### 1 90NCBP, 210ISBP ####[facility] LABCLIA [id number] [address] [place]#### P210P, P190P ####[facility] [id number] [address] [place] BCR/ABL1 P210 %IS PANELon BCR/ABL1 P210 %IS 0.7883 Normal [facility] Comment on above: Order Comment: Speci men Type: BLOOD SPECIMENOrdering Facility: [facility] Address: [address] [place] [address] Performed By: #### 1 90NCBP, 210ISBP ####[facility] LABCLIA [id number] [address] [place]#### P210P, P190P ####[facility] [id number] [address] BCR/ABL1 P210 MR 2.1 Normal [facility] Comment on above: Order Comment: Speci men Type: BLOOD SPECIMENOrdering Facility: [facility] Address: [address] [place] [address] Performed By: #### 1 90NCBP, 210ISBP ####[facility] LABCLIA [id number] [place] [address] [place]#### P210P, P190P ####[facility] [id number] [address] [place] BCR/ABL1 P210 QUANTITATIVE P CR BLOOD 01-22-2023 BCR/ABL1 P210 INTERPRETATION Normal [facility] Comment on above: Order Comment: Speci men Type: BLOOD SPECIMENOrdering Facility: [facility] Address: [address] [place] [address] Result Comment: BCR/ ABL1 p210 Quantitative PCRLaboratory Accession Number: [id number]:DETECTEDMR: 2.1%IS: 0.7883Interpretation:p210 BCR/ABL1 transcripts were detected. Quantitative results areexpressed on the International Scale (IS) and a log molecular response(MR) is calculated. On this scale, a value of less than or equal to0.1% corresponds to a major molecular response (MMR or MR3.0).Methodology:The [employer] QuantideX BCR/ABL IS assay is an FDA-cleared [...] et al, Blood 2006;108:28-37; Janes et al, Vzahcpxv4965;29:999-1003As reviewed by Chaparro Orellana MD Performed By: #### 1 90NCBP, 210ISBP ####[facility] LABCLIA [id number] [place] [address] [place]#### P210P, P190P ####[facility] [id number] [place] [address] [place] Bilirub Conj SerPl-mCncon Bilirubin.conjugat ed [Mass/Vol] mg/dL Normal <0.2 [facility] Comment on above: Order Comment: Speci men Type: BLOOD SPECIMENOrdering Facility: [facility] Address: [address] [place] [address] Performed By: #### 2 777-1, 53614-4, 1798-8, 3040-3, 94334-9 ####[facility] [id number] [address] [place] CBC W Auto Differential pane l (Bld)on 01-22-2023 Basophils (Bld) [#/Vol] 0.08 10*3/uL Normal <0.11 [facility] Comment on above: Order Comment: Speci men Type: BLOOD SPECIMENOrdering Facility: [facility] Address: [address] Performed By: #### 5 7021-8 ####[facility] [id number] [address] STATES [facility] Basophils/100 WBC (Bld) 0.8 % Normal [facility] Comment on above: Order Comment: Speci men Type: BLOOD SPECIMENOrdering Facility: [facility] Address: [address] [place] [address] Performed By: #### 5 7021-8 ####[facility] [id number] [place] [address] [place] [facility] Differential cell count method Nom (Bld) Auto Normal [facility] Comment on above: Order Comment: Speci men Type: BLOOD SPECIMENOrdering Facility: [facility] Address: [address] [place] [address] Performed By: #### 5 7021-8 ####[facility] [place] [id number] [place] [address] [place] Eosinophils (Bld) [#/Vol] 0.55 10*3/uL High <0.46 [facility] Comment on above: Order Comment: Speci men Type: BLOOD SPECIMENOrdering Facility: [facility] Address: [address] [place], [place] [address] Performed By: #### 5 7021-8 ####[facility] [place] [id number] [place] [address] [place] [facility] Eosinophils/100 WBC (Bld) 5.6 % Normal [facility] Comment on above: Order Comment: Speci men Type: BLOOD SPECIMENOrdering Facility: [facility] Address: [address] [place], [place] [address] Performed By: #### 5 7021-8 ####[facility] [id number] [place] [address] [place] Erythrocyte distribution width (RBC) [Ratio] 14.1 % Normal 11.5-15.0 [facility] Comment on above: Order Comment: Speci men Type: BLOOD SPECIMENOrdering Facility: [facility] Address: [address] [place] [address] Performed By: #### 5 7021-8 ####[facility] [id number] [address] [place] Hematocrit (Bld) [Volume fraction] 45.4 % Normal 39.0-51.0 [facility] Comment on above: Order Comment: Speci men Type: BLOOD SPECIMENOrdering Facility: [facility] Address: [address] [place] [address] Performed By: #### 5 7021-8 ####[facility] [place] [id number] [place] [address] [place] Hemoglobin (Bld) [Mass/Vol] 15.1 g/dL Normal 13.0-17.0 [facility] Comment on above: Order Comment: Speci men Type: BLOOD SPECIMENOrdering Facility: [facility] Address: [address] [place], [place] [address] Performed By: #### 5 7021-8 ####[facility] [id number] [address] [place] Immature granulocytes (Bld) [#/Vol] 0.07 10*3/uL Normal <0.10 [facility] Comment on above: Order Comment: Speci men Type: BLOOD SPECIMENOrdering Facility: [facility] Address: [address] [place], [place] [address] Performed By: #### 5 7021-8 ####[facility] [place] [id number] [place] [address] [place] Immature granulocytes/100 WBC (Bld) 0.7 % Normal [facility] Comment on above: Order Comment: Speci men Type: BLOOD SPECIMENOrdering Facility: [facility] Address: [address] Performed By: #### 5 7021-8 ####[facility] [id number] [address] [place] Lymphocytes (Bld) [#/Vol] 2.44 10*3/uL Normal 1.00-4.00 [facility] Comment on above: Order Comment: Speci men Type: BLOOD SPECIMENOrdering Facility: [facility] Address: [address] [place] [address] Performed By: #### 5 7021-8 ####[facility] [id number] [place] [address] [place] Lymphocytes/100 WBC (Bld) 24.7 % Normal [facility] Comment on above: Order Comment: Speci men Type: BLOOD SPECIMENOrdering Facility: [facility] Address: [address] Performed By: #### 5 7021-8 ####[facility] [id number] [place] [address] [place] MCH (RBC) [Entitic mass] 26.7 pg Normal 26.0-34.0 [facility] Comment on above: Order Comment: Speci men Type: BLOOD SPECIMENOrdering Facility: [facility] Address: [address] Performed By: #### 5 7021-8 ####[facility] [id number] [address] [place] MCHC (RBC) [Mass/Vol] 33.3 g/dL Normal 30.5-36.0 [facility] Comment on above: Order Comment: Speci men Type: BLOOD SPECIMENOrdering Facility: [facility] Address: [address] Performed By: #### 5 7021-8 ####[facility] [id number] [place] [address] [place] MCV (RBC) [Entitic vol] 80.4 fL Normal 80.0-100.0 [facility] Comment on above: Order Comment: Speci men Type: BLOOD SPECIMENOrdering Facility: [facility] Address: [address] [place] [address] Performed By: #### 5 7021-8 ####[facility] [id number] [place] [address] [place] Monocytes (Bld) [#/Vol] 0.60 10*3/uL Normal <0.87 [facility] Comment on above: Order Comment: Speci men Type: BLOOD SPECIMENOrdering Facility: [facility] Address: [address] [place] [address] Performed By: #### 5 7021-8 ####[facility] [id number] [place] [address] Monocytes/100 WBC (Bld) 6.1 % Normal [facility] Comment on above: Order Comment: Speci men Type: BLOOD SPECIMENOrdering Facility: [facility] Address: [address] [place] [address] Performed By: #### 5 7021-8 ####[facility] [place] [id number] [place] [address] [place] Neutrophils (Bld) [#/Vol] 6.14 10*3/uL Normal 1.45-7.50 [facility] Comment on above: Order Comment: Speci men Type: BLOOD SPECIMENOrdering Facility: [facility] Address: [address] [place] [address] Performed By: #### 5 7021-8 ####[facility] [id number] [place] [address] [place] Neutrophils/100 WBC (Bld) 62.1 % Normal [facility] Comment on above: Order Comment: Speci men Type: BLOOD SPECIMENOrdering Facility: [facility] Address: [address] Performed By: #### 5 7021-8 ####[facility] [place] [id number] [place] [address] Nucleated RBC (Bld) [#/Vol] 10*3/uL Normal <0.01 [facility] Comment on above: Order Comment: Speci men Type: BLOOD SPECIMENOrdering Facility: [facility] Address: [address] Performed By: #### 5 7021-8 ####[facility] [id number] [place] [address] [place] Nucleated RBC/100 WBC (Bld) [Ratio] 0.0 /100 WBC Normal [facility] Comment on above: Order Comment: Speci men Type: BLOOD SPECIMENOrdering Facility: [facility] Address: [address] Performed By: #### 5 7021-8 ####[facility] [id number] [place] [address] [place] Platelet mean volume (Bld) [Entitic vol] 9.8 fL Normal 9.0-12.7 [facility] Comment on above: Order Comment: Speci men Type: BLOOD SPECIMENOrdering Facility: [facility] Address: [address] [place] [address] Performed By: #### 5 7021-8 ####[facility] [id number] [place] [address] [place] Platelets (Bld) [#/Vol] 286 10*3/uL Normal 150-400 [facility] Comment on above: Order Comment: Speci men Type: BLOOD SPECIMENOrdering Facility: [facility] Address: [address] [place], [place] [address] Performed By: #### 5 7021-8 ####[facility] [id number] [place] [address] [place] RBC (Bld) [#/Vol] 5.65 10*6/uL Normal 4.20-6.00 [facility] Comment on above: Order Comment: Speci men Type: BLOOD SPECIMENOrdering Facility: [facility] Address: [address] [place] [address] Performed By: #### 5 7021-8 ####[facility] [id number] [place] [address] [place] WBC (Bld) [#/Vol] 9.88 10*3/uL Normal 3.70-11.00 [facility] Comment on above: Order Comment: Speci men Type: BLOOD SPECIMENOrdering Facility: [facility] Address: [address] [place] [address] Performed By: #### 5 7021-8 ####[facility] [id number] [place] [address] [place] CK TOTAL AND CK-MBon 023 CK [Catalytic activity/Vol] 72 U/L Normal 51-298 [facility] Comment on above: Order Comment: Speci men Type: BLOOD SPECIMENOrdering Facility: [facility] Address: [address] Performed By: #### C KCKMB, HSTNT ####[facility] [id number] [address] [place] CK.MB [Mass/Vol] 3.1 ng/mL Normal <7.8 [facility] Comment on above: Order Comment: Speci men Type: BLOOD SPECIMENOrdering Facility: [facility] Address: [address] Performed By: #### C KCKMB, HSTNT ####[facility] [id number] [address] STATES [facility] CK.MB [Ratio] Normal [facility] Comment on above: Order Comment: Speci men Type: BLOOD SPECIMENOrdering Facility: [facility] Address: [address] [place] [address] Result Comment: CK M B % not reported with CK <100 U/L. Performed By: #### C KCKMB, HSTNT ####[facility] [id number] [address] [place] CNNURSEon 01-22-2023 CNNURSE Normal [facility] CNOVSPon 01-22-2023 CNOVSP Normal [facility] Cholest SerPl-mCncon 023 Cholesterol [Mass/Vol] 165 mg/dL Normal <200 [facility] Comment on above: Order Comment: Speci men Type: BLOOD SPECIMENOrdering Facility: [facility] Address: [address] [place] [address] Result Comment: <200 mg/dL, Desirable 200-239 mg/dL, Borderline high>239 mg/dL, HighReference:1. National Cholesterol Education Program ATP III Guideline At-A-Glance Quick Desk Reference: National Heart, Lung, and Blood Bitely. National Institutes of Health. 2001: NIH Publication No. 01-3305. Performed By: #### 2 093-3 ####[facility] [id number] [address] [facility] Comprehensive metabolic 2000 panelon 01-22-2023 Albumin [Mass/Vol] 4.2 g/dL Normal 3.9-4.9 [facility] Comment on above: Order Comment: Speci men Type: BLOOD SPECIMENOrdering Facility: [facility] Address: [address] [place] [address] Performed By: #### 3 084-1, 37555-3, 2571-8 ####[facility] [id number] [place] [address] [place] ALP [Catalytic activity/Vol] 186 U/L High 38-113 [facility] Comment on above: Order Comment: Speci men Type: BLOOD SPECIMENOrdering Facility: [facility] Address: [address] [place] [address] Performed By: #### 3 084-1, 35559-7, 2571-01 ####[facility] [id number] [place] [address] [place] ALT [Catalytic activity/Vol] 38 U/L Normal 10-54 [facility] Comment on above: Order Comment: Speci men Type: BLOOD SPECIMENOrdering Facility: [facility] Address: [address] [place] [address] Performed By: #### 3 084-1, 93446-1, 2571-01 ####[facility] [id number] [place] [address] [place] Anion gap [Moles/Vol] 8 mmol/L Low 9-18 [facility] Comment on above: Order Comment: Speci men Type: BLOOD SPECIMENOrdering Facility: [facility] Address: [address] [place] [address] Performed By: #### 3 084-1, 64690-9, 2571-01 ####[facility] [place] [id number] [place] [address] [place] AST [Catalytic activity/Vol] 27 U/L Normal 14-40 [facility] Comment on above: Order Comment: Speci men Type: BLOOD SPECIMENOrdering Facility: [facility] Address: [address] [place], [place] [address] Performed By: #### 3 084-1, 52414-3, 2571-01 ####[facility] [id number] [place] [address] [place] Bilirubin [Mass/Vol] 0.3 mg/dL Normal 0.2-1.3 [facility] Comment on above: Order Comment: Speci men Type: BLOOD SPECIMENOrdering Facility: [facility] Address: [address] [address] Performed By: #### 3 084-1, 31475-4, 2571-01 ####[facility] [id number] [place] [address] [place] Calcium [Mass/Vol] 9.2 mg/dL Normal 8.5-10.2 [facility] Comment on above: Order Comment: Speci men Type: BLOOD SPECIMENOrdering Facility: [facility] Address: [address] [address] Performed By: #### 3 084-1, , 2571-01 ####[facility] [id number] [place] [address] [place] Chloride [Moles/Vol] 101 mmol/L Normal 97-105 [facility] Comment on above: Order Comment: Speci men Type: BLOOD SPECIMENOrdering Facility: [facility] Address: [address] [place] [address] Performed By: #### 3 084-1, 65183-0, 2571-01 ####[facility] [place] [id number] [place] [address] [place] CO2 [Moles/Vol] 26 mmol/L Normal 22-30 [facility] Comment on above: Order Comment: Speci men Type: BLOOD SPECIMENOrdering Facility: [facility] Address: [address] [place], [place] [address] Performed By: #### 3 084-1, 19921-3, 2571-01 ####[facility] [id number] [place] [address] [place] Creatinine [Mass/Vol] 0.62 mg/dL Low 0.73-1.22 [facility] Comment on above: Order Comment: Speci men Type: BLOOD SPECIMENOrdering Facility: [facility] Address: [address] [id number] Performed By: #### 3 084-1, 63131-7, 8 ####[facility] [id number] [address] [place] ESTIMATED GLOMERULAR FILTRATION RATE 114 mL/min/1.73m??? Normal >=60 [facility] Comment on above: Order Comment: Rosa gaspar Type: BLOOD SPECIMENOrdering Facility: [facility] Address: [address] Result Comment: Najma mated Glomerular Filtration Rate [...] accurately reflect actual GFR. Performed By: #### 3 084-1, 11053-8, 8 ####[facility] [id number] [place] [address] [place] Glucose [Mass/Vol] 192 mg/dL High 74-99 [facility] Comment on above: Order Comment: Rosa gaspar Type: BLOOD SPECIMENOrdering Facility: [facility] Address: [address] [place] [address] Result Comment: The [place] Diabetes Association (ADA) provides guidance for cutoff [...] of Medical Care in Diabetes 2016, [place] [employer]. Diabetes Care. 2016.39(Suppl 1). Performed By: #### 3 084-1, 58407-4, 2571-01 ####[facility] [id number] [place] [address] [place] Potassium [Moles/Vol] 4.5 mmol/L Normal 3.7-5.1 [facility] Comment on above: Order Comment: Speci men Type: BLOOD SPECIMENOrdering Facility: [facility] Address: [address] [address] Performed By: #### 3 084-1, 69455-6, 2571-01 ####[facility] [id number] [place] [address] [place] Protein [Mass/Vol] 8.2 g/dL High 6.3-8.0 [facility] Comment on above: Order Comment: Speci men Type: BLOOD SPECIMENOrdering Facility: [facility] Address: [address] [place] [address] Performed By: #### 3 084-1, 16472-0, 2571-01 ####[facility] [place] [id number] [place] [address] [place] Sodium [Moles/Vol] 135 mmol/L Low 136-144 [facility] Comment on above: Order Comment: Speci men Type: BLOOD SPECIMENOrdering Facility: [facility] Address: [address] Performed By: #### 3 084-1, 85647-6, 2571-01 ####[facility] [id number] [place] [address] [place] Urea nitrogen [Mass/Vol] 11 mg/dL Normal 9-24 [facility] Comment on above: Order Comment: Speci men Type: BLOOD SPECIMENOrdering Facility: [facility] Address: [address] [address] Performed By: #### 3 084-1, 84954-9, 8 ####[facility] [id number] [place] [address] [place] [id number] 01-22-2023 ECG01 Normal [facility] ECG01 Normal [facility] ECG01 Normal [facility] HIGH SENSITIVITY TROPONIN To n 01-22-2023 HIGH SENSITIVITY TRACY 23 ng/L High <12 [facility] Comment on above: Order Comment: Speci men Type: BLOOD SPECIMENOrdering Facility: [facility] Address: [address] [address] Result Comment: When assessing risk for acute [...] MACE. Performed By: #### C KCKMB, HSTNT ####[facility] [id number] [address] [place] HbA1c (Bld)on 01-22-2023 Average glucose Estimated from glycated hemoglobin (Bld) [Mass/Vol] 197 mg/dL Normal [facility] Comment on above: Order Comment: Rosa gaspar Type: BLOOD SPECIMENOrdering Facility: [facility] Address: [address] [place] [address] Result Comment: eAG: (Estimated average glucose) is a calculated value from HgbA1c and is chemical sales representative of the average blood glucose level in the last 2-3 month period. Performed By: #### 5 5454-3 ####[facility] [id number] [place] [address] [place] HbA1c (Bld) [Mass fraction] 8.5 % High 4.3-5.6 [facility] Comment on above: Order Comment: Rosa gaspar Type: BLOOD SPECIMENOrdering Facility: [facility] Address: [address] [place] [address] Result Comment: [place] Diabetes Association guidelines indicate that patients with HgbA1c in the range 5.7-6.4% are at increased risk for development of diabetes, and intervention by lifestyle modification may be beneficial. HgbA1c greater or equal to 6.5% is considered diagnostic of diabetes. Performed By: #### 5 5454-3 ####[facility] [id number] [address] [place] Lipase SerPl-cCncon 01-23-20 Lipase [Catalytic activity/Vol] 30 U/L Normal 16-61 [facility] Comment on above: Order Comment: Speci men Type: BLOOD SPECIMENOrdering Facility: [facility] Address: [address] [place] [address] Performed By: #### 2 777-1, 42867-4, 1797-8, 3039-3, 46920-2 ####[facility] [id number] [address] Magnesium SerPl-mCncon 01-22 Magnesium [Mass/Vol] 2.1 mg/dL Normal 1.7-2.3 [facility] Comment on above: Order Comment: Michaeli hubert Type: BLOOD SPECIMENOrdering Facility: [facility] Address: [address] [place] [address] Performed By: #### 2 777-1, 55780-8, 8, 3, ####[facility] [id number] [address] [place] PT panel Coag (PPP)on 2022 INR Coag (PPP) [Relative time] 1.0 {INR} Normal 0.9-1.3 [facility] Comment on above: Order Comment: Michaeli men Type: BLOOD SPECIMENOrdering Facility: [facility] Address: [address] [place] [address] Result Comment: Nyla min K Antagonist (VKA) Therapeutic Range: INR 2 to 3 (Target INR of 2.5)Note: For patients treated with VKA drugs, such as warfarin, the [place] [employer] 2012 Guideline recommends [...] al. Chest 2012, 141:7S-47SNishimura RA, et al. [facility] 2017, 70: 252-289 Performed By: #### 1 4979-9, 44675-9 ####[facility] [id number] [place] [address] [place] PT Coag (PPP) [Time] 10.2 s Normal 9.7-13.0 [facility] Comment on above: Order Comment: Speci men Type: BLOOD SPECIMENOrdering Facility: [facility] Address: [address] [place] [address] Performed By: #### 1 4979-9, 25796-5 ####[facility] [id number] [place] [address] [place] Phosphate SerPl-mCncon 01-22 Phosphate [Mass/Vol] 3.4 mg/dL Normal 2.7-4.8 [facility] Comment on above: Order Comment: Speci men Type: BLOOD SPECIMENOrdering Facility: [facility] Address: [address] [place] [address] Performed By: #### 2 777-1, 99515-8, 1798-8, 3040-3, 45555-5 ####[facility] [id number] [place] [address] [place] Trigl SerPl-mCncon Triglyceride [Mass/Vol] 180 mg/dL High <150 [facility] Comment on above: Order Comment: Speci men Type: BLOOD SPECIMENOrdering Facility: [facility] Address: [address] [id number] Result Comment: <150 mg/dL, Normal 150-199 mg/dL, Borderline high 200-499 mg/dL, High>499 mg/dL, Very highReference:1. National Cholesterol Education Program ATP III Guideline At-A-Glance Quick Desk Reference: National Heart, Lung, and Blood Bitely. National Institutes of Health. 2001: NIH Publication No. 01-3305. Performed By: #### 3 084-1, 50902-2, 257-8 ####[facility] [id number] [address] [place] Triglyceride [Mass/Vol]on FASTING TIME 12 hrs Normal [facility] Comment on above: Order Comment: Speci men Type: BLOOD SPECIMENOrdering Facility: [facility] Address: [address] [place], [place] [phone] Performed By: #### 3 084-1, 72663-0, 257-8 ####[facility] [id number] [place] [address] [place] URINALYSIS, DIPSTICK ONLYon 01-22-2023 Bilirubin Ql (U) Negative Normal Negative [facility] Comment on above: Order Comment: Speci men Type: URINE SPECIMENOrdering Facility: [facility] Address: [address] [place], [place] [phone] Performed By: #### U A ####[facility] [id number] [address] [place] Clarity (Unsp spec) Clear Normal Clear [facility] Comment on above: Order Comment: Speci men Type: URINE SPECIMENOrdering Facility: [facility] Address: [address] Performed By: #### U A ####[facility] [id number] [place] [address] [place] Color (U) Colorless Normal Yellow [facility] Comment on above: Order Comment: Speci men Type: URINE SPECIMENOrdering Facility: [facility] Address: [address] [place] [address] Performed By: #### U A ####[facility] [id number] [place] [address] [place] Glucose Test strip (U) [Mass/Vol] Trace Normal Trace, Negative [facility] Comment on above: Order Comment: Speci men Type: URINE SPECIMENOrdering Facility: [facility] Address: [address] [place] [address] Performed By: #### U A ####[facility] [id number] [place] [address] [place] Hemoglobin Ql (U) Negative Normal Negative, Trace [facility] Comment on above: Order Comment: Speci men Type: URINE SPECIMENOrdering Facility: [facility] Address: [address] [place] [address] Performed By: #### U A ####[facility] [id number] [place] [address] [place] Ketones Ql (U) Negative Normal Trace, Negative [facility] Comment on above: Order Comment: Speci men Type: URINE SPECIMENOrdering Facility: [facility] Address: [address] Performed By: #### U A ####[facility] [id number] [place] [address] [place] Leukocyte esterase Test strip Ql (U) Negative Normal Negative, 25 Nabila/uL [facility] Comment on above: Order Comment: Speci men Type: URINE SPECIMENOrdering Facility: [facility] Address: [address] [place] [address] Performed By: #### U A ####[facility] [id number] [place] [address] [place] Nitrite Ql (U) Negative Normal Negative [facility] Comment on above: Order Comment: Speci men Type: URINE SPECIMENOrdering Facility: [facility] Address: [address] [place] [address] Performed By: #### U A ####[facility] [id number] [place] [address] [place] pH (U) 6.0 [pH] Normal 5.0-8.0 [facility] Comment on above: Order Comment: Speci men Type: URINE SPECIMENOrdering Facility: [facility] Address: [address] [place] [address] Performed By: #### U A ####[facility] [id number] [place] [address] [place] Protein (U) [Mass/Vol] Negative Normal Trace, Negative [facility] Comment on above: Order Comment: Speci men Type: URINE SPECIMENOrdering Facility: [facility] Address: [address] [place] [address] Performed By: #### U A ####[facility] [id number] [place] [address] [place] Specific gravity (U) [Rel density] 1.005 Normal 1.005-1.030 [facility] Comment on above: Order Comment: Speci men Type: URINE SPECIMENOrdering Facility: [facility] Address: [address] [place] [address] Performed By: #### U A ####[facility] [id number] [place] [address] [place] Urobilinogen Ql (U) Negative Normal Negative [facility] Comment on above: Order Comment: Speci men Type: URINE SPECIMENOrdering Facility: [facility] Address: [address] [address] Performed By: #### U A ####[facility] [id number] [address] [place] Urate SerPl-mCncon Urate [Mass/Vol] 2.8 mg/dL Low 4.0-8.1 [facility] Comment on above: Order Comment: Speci men Type: BLOOD SPECIMENOrdering Facility: [facility] Address: [address] [address] Performed By: #### 3 084-1, 74090-8, 2571-8 ####[facility] [id number] [address] [place] aPTT PPPon 01-22-2023 aPTT Coag (PPP) [Time] 26.8 s Normal 23.0-32.4 [facility] Comment on above: Order Comment: Speci men Type: BLOOD SPECIMENOrdering Facility: [facility] Address: [address] [address] Performed By: #### 1 4979-9, 87280-0 ####[facility] [id number] [place] [address] [place] CNPNon 01-21-2023 CNPN Normal [facility] Office Visiton 10-16-2022 Follow-up visit [id number] Eda Avitia 1970 M Date Provider Department Center 10/16/2022 ANGUS FRAZIER MP ORTHO MPORTHO No family history on file Level of Service:96801 HI OFFICE/OUTPATIENT NEW LOW MDM 30-44 MINUTES (GC) Reason for Visit and Comments: Pain [136] Normal [facility] HEMOGLOBIN A1C (POC)on 10-15 HbA1c (Bld) [Mass fraction] 8.5 % Abnormal 4.2 - 5.6 % [facility] CBC AUTO DIFFon 08-06-2022 BASO # 0.1 103/ul Normal 0.0-0.1 [facility] Comment on above: Performed By: #### C BC #### [facility] [address] [address] [address] Yinka Flores Basophils/100 WBC (Bld) 0.8 % Normal 0.2-2.0 [facility] Comment on above: Performed By: #### C BC #### [facility] [address] [place] [address] Dr. Yinka Flores EO # 0.5 103/ul Normal 0.0-0.7 [facility] Comment on above: Performed By: #### C BC #### [facility] [address] [place] [address] Dr. Yinka Flores Eosinophils/100 WBC (Bld) 4.5 % Normal 0.9-7.0 [facility] Comment on above: Performed By: #### C BC #### [facility] [address] [place] [address] Dr. Yinka Flores Erythrocyte distribution width (RBC) [Ratio] 14.4 % Normal 11.0-15.0 [facility] Comment on above: Performed By: #### C BC #### [facility] [address] [place] [address] Dr. Yinka Flores Hematocrit (Bld) [Volume fraction] 43.6 % Normal 42.0-54.0 [facility] Comment on above: Performed By: #### C BC #### [facility] [address] [place] [address] Dr. Yinka Flores Hemoglobin (Bld) [Mass/Vol] 14.7 g/dL Normal 14.0-18.0 [facility] Comment on above: Performed By: #### C BC #### [facility] [address] [place] [address] Dr. Yinka Flores IG # 0.06 10e3/ul Critically high 0.00-0.03 [facility] Comment on above: Performed By: #### C BC #### [facility] [address] [place] [address] Dr. Yinka Flores IG % 0.5 % Normal 0.0-0.5 [facility] Comment on above: Performed By: #### C BC #### [facility] [address] [place] [address] Dr. Yinka Flores LYMPH # 3.3 103/ul Normal 1.2-3.8 [facility] Comment on above: Performed By: #### C BC #### [facility] [address] [place] [address] Dr. Yinka Flores Lymphocytes/100 WBC (Bld) 27.8 % Normal 20.5-60.0 [facility] Comment on above: Performed By: #### C BC #### [facility] [address] [place] [address] Dr. Yinka Flores MANUAL DIFF REQ NO Normal [facility] Comment on above: Performed By: #### C BC #### [facility] [address] [place] [address] Dr. Yinka Flores MCH (RBC) [Entitic mass] 26.1 pg Normal 25.9-34.0 [facility] Comment on above: Performed By: #### C BC #### [facility] [address] [place] [address] Dr. Yinka Flores MCHC (RBC) [Mass/Vol] 33.7 g/dL Normal 29.9-35.2 [facility] Comment on above: Performed By: #### C BC #### [facility] [address] [place] [address] Dr. Yinka Flores MCV (RBC) [Entitic vol] 77.3 fL Critically low 80.0-94.0 [facility] Comment on above: Performed By: #### C BC #### [facility] [address] [place] [address] Dr. Yinka Flores MONO # 0.8 103/ul Normal 0.3-0.8 [facility] Comment on above: Performed By: #### C BC #### [facility] [address] [place] [address] Dr. Yinka Flores Monocytes/100 WBC (Bld) 6.6 % Normal 1.7-12.0 [facility] Comment on above: Performed By: #### C BC #### [facility] [address] [place] [address] Dr. Yinka Flores NEUT # 7.1 103/ul Critically high 1.4-6.5 [facility] Comment on above: Performed By: #### C BC #### [facility] [address] [place] [address] Dr. Yinka Flores Neutrophils/100 WBC (Bld) 59.8 % Normal 43.0-75.0 [facility] Comment on above: Performed By: #### C BC #### [facility] [address] [place] [address] Dr. Yinka Flores Platelet mean volume (Bld) [Entitic vol] 9.5 fL Normal 9.5-13.5 [facility] Comment on above: Performed By: #### C BC #### [facility] [address] [place] [address] Dr. Yinka Flores PLT 257 103/ul Normal 150-450 [facility] Comment on above: Performed By: #### C BC #### [facility] [address] [place] [address] Dr. Yinka Flores RBC 5.64 106/ul Normal 4.70-6.10 [facility] Comment on above: Performed By: #### C BC #### [facility] [address] [place] [address] Dr. Yinka Flores WBC 11.9 103/ul Critically high 4.0-11.0 [facility] Comment on above: Performed By: #### C BC #### [facility] [address] [place] [address] Dr. Yinka Flores GLYCOHEMOGLOBIN A1Con 2022 ADA RECOMMENDATION SEE BELOW Normal [facility] Comment on above: Result Comment: ADA RECOMMENDED LIMIT 4.0 - 6.0 ADA THERAPEUTIC TARGET < 7.0 ACTION SUGGESTED > 7.0 Performed By: #### A 1C #### [facility] [address] [place], [place] [address] Dr. Yinka Flores Glucose [Mass/Vol] 189 mg/dL Normal [facility] Comment on above: Performed By: #### A 1C #### [facility] [address] [address] [address] Yinka Folres HbA1c (Bld) [Mass fraction] 8.2 % Critically high 4.5-6.2 [facility] Comment on above: Performed By: #### A 1C #### [facility] [address] [address] [address] Yinka Flores LIPID PROFILEon 08-06-2022 CHOL-HDL RATIO NORM SEE BELOW Normal [facility] Comment on above: Result Comment: 3.3 - 4.4 LOW RISK 4.4 - 7.1 AVERAGE RISK 7.1 - 11.0 MODERATE RISK >11.0 HIGH RISK Performed By: #### L IPID, CMP #### [facility] [address] [place] [address] Dr. Yinka Flores Cholesterol [Mass/Vol] 251 mg/dL Critically high <=200 [facility] Comment on above: Performed By: #### L IPID, CMP #### [facility] [address] [place] [address] Dr. Yinka Flores Cholesterol in HDL [Mass/Vol] 34 mg/dL Critically low 40-60 [facility] Comment on above: Performed By: #### L IPID, CMP #### [facility] [address] [address] [address] Yinka Flores Cholesterol in LDL [Mass/Vol] 172.4 mg/dL Normal [facility] Comment on above: Performed By: #### L IPID, CMP #### [facility] [address] [address] [address] Yinka Flores Cholesterol.total/ Cholesterol in HDL [Mass ratio] 7.4 {ratio} Normal [facility] [facility] Comment on above: Performed By: #### L IPID, CMP #### [facility] [address] [place] [address] Dr. Yinka Flores HDL NORMAL > or = 60 mg/dl - LO W CARDIOVASCULAR RISK <40 mg/dl - HIGH CARDIOVASCULAR RISK Normal [facility] Comment on above: Performed By: #### L IPID, CMP #### [facility] [address] [address] [address] Yinka Flores LDL CALC NORMAL SEE BELOW Normal [facility] Comment on above: Result Comment: <100 mg/dl OPTIMAL 100 - 129 mg/dl NEAR OR ABOVE OPTIMAL 130 - 159 mg/dl BORDERLINE HIGH 160 - 189 mg/dl HIGH >190 mg/dl VERY HIGH Performed By: #### L IPID, CMP #### [facility] [address] [address] [address] Yinka Flores Triglyceride [Mass/Vol] 223 mg/dL Critically high <=150 [facility] Comment on above: Performed By: #### L IPID, CMP #### [facility] [address] [place] [address] Dr. Yinka Flores VLDL CALC 44.6 mg/dL Normal [facility] Comment on above: Performed By: #### L IPID, CMP #### [facility] [address] [place] [address] Dr. Yinka Flores MICROALBUMIN, RAND URon 07-11 mALB 2.0 mg/L Normal <=30.0 [facility] Comment on above: Performed By: #### M ALBR #### [facility] [address] [place] [address] Dr. Yinka Flores PROF 14(COMP METB)on 023 Albumin [Mass/Vol] 3.7 g/dL Normal 3.4-5.0 [facility] Comment on above: Performed By: #### L IPID, CMP #### [facility] [address] [address] [address] Yinka Flores Albumin/Globulin [Mass ratio] 0.7 {ratio} Normal [facility] Comment on above: Performed By: #### L IPID, CMP #### [facility] [address] [address] [address] Yinka Flores ALP [Catalytic activity/Vol] 179 U/L Critically high 46-116 [facility] Comment on above: Performed By: #### L IPID, CMP #### [facility] [address] [address] [address] Yinka Flores ALT [Catalytic activity/Vol] 46 U/L Normal 16-63 [facility] Comment on above: Performed By: #### L IPID, CMP #### [facility] [address] [address] [address] Yinka Flores Anion gap [Moles/Vol] 10.7 mmol/L Normal [facility] Comment on above: Performed By: #### L IPID, CMP #### [facility] [address] [address] [address] Yinka Flores AST [Catalytic activity/Vol] 29 U/L Normal 15-37 [facility] Comment on above: Performed By: #### L IPID, CMP #### [facility] [address] [place] [address] Dr. Yinka Flores Bilirubin [Mass/Vol] 0.3 mg/dL Normal 0.2-1.0 [facility] Comment on above: Performed By: #### L IPID, CMP #### [facility] [address] [place] [address] Dr. Yinka Flores Calcium [Mass/Vol] 9.4 mg/dL Normal 8.5-10.1 [facility] Comment on above: Performed By: #### L IPID, CMP #### [facility] [address] [place] [address] Dr. Yinka Flores Chloride [Moles/Vol] 100 mmol/L Normal 98-107 [facility] Comment on above: Performed By: #### L IPID, CMP #### [facility] [address] [address] [address] Yinka Flores CO2 [Moles/Vol] 29.4 mmol/L Normal 21.0-32.0 [facility] Comment on above: Performed By: #### L IPID, CMP #### [facility] [address] [place] [address] Dr. Yinka Flores Creatinine [Mass/Vol] 0.70 mg/dL Normal 0.70-1.30 [facility] Comment on above: Performed By: #### L IPID, CMP #### [facility] [address] [address] [address] Yinka Flores EGFR-AF SLOVAK >60 Normal >=60 [facility] Comment on above: Performed By: #### L IPID, CMP #### [facility] [address] [address] [address] Yinka Flores EGFR-NON AF SLOVAK >60 Normal >=60 [facility] Comment on above: Performed By: #### L IPID, CMP #### [facility] [address] [address] [address] Yinka Flores Globulin (S) [Mass/Vol] 5.1 g/dL Normal [facility] Comment on above: Performed By: #### L IPID, CMP #### [facility] [address] [address] [address] Yinka Flores Glucose [Mass/Vol] 108 mg/dL Critically high 74-106 [facility] Comment on above: Performed By: #### L IPID, CMP #### [facility] [address] [address] [address] Yinka Flores Potassium [Moles/Vol] 4.1 mmol/L Normal 3.5-5.1 [facility] Comment on above: Performed By: #### L IPID, CMP #### [facility] [address] [address] [address] Yinka Flores Protein [Mass/Vol] 8.8 g/dL Critically high 6.4-8.2 [facility] Comment on above: Performed By: #### L IPID, CMP #### [facility] [address] [address] [address] Yinka Flores Sodium [Moles/Vol] 136 mmol/L Normal 136-145 [facility] Comment on above: Performed By: #### L IPID, CMP #### [facility] [address] [address] [address] Yinka Flores Urea nitrogen [Mass/Vol] 11.0 mg/dL Normal 7.0-18.0 [facility] Comment on above: Performed By: #### L IPID, CMP #### [facility] [address] [address] [address] Yinka Flores Urea nitrogen/Creatinin e [Mass ratio] 15.7 mg/mg Normal [facility] Comment on above: Performed By: #### L IPID, CMP #### [facility] [address] [address] [address] Yinka Flores UA RANDOM W/MICROSCOPICon BACTERIA NONE SEEN Normal NONE SEEN [facility] Comment on above: Performed By: #### U AMIC #### [facility] [address] [address] [address] Yinka Flores Bilirubin Ql (U) Negative Normal NEGATIVE [facility] Comment on above: Performed By: #### U AMIC #### [facility] [address] [place] [address] Dr. Yinka Flores CAST NONE SEEN Normal NONE SEEN [facility] Comment on above: Performed By: #### U AMIC #### [facility] [address] [address] [address] Yinka Flores Clarity (U) CLEAR Normal CLEAR [facility] Comment on above: Performed By: #### U AMIC #### [facility] [address] [address] [address] Yinka Flores Color (U) LT. YELLOW Normal YELLOW [facility] Comment on above: Performed By: #### U AMIC #### [facility] [address] [address] [address] Yinka Flores Crystals LM Nom (Urine sed) NONE SEEN Normal NONE SEEN [facility] Comment on above: Performed By: #### U AMIC #### [facility] [address] [address] [address] Yinka Flores Epithelial cells LM Ql (Urine sed) NONE SEEN Normal NONE SEEN /RARE [facility] Comment on above: Performed By: #### U AMIC #### [facility] [address] [address] [address] Yinka Flores Glucose Ql (U) Negative Normal NEGATIVE [facility] Comment on above: Performed By: #### U AMIC #### [facility] [address] [address] [address] Yinka Flores Hemoglobin Ql (U) Negative Normal NEGATIVE [facility] Comment on above: Performed By: #### U AMIC #### [facility] [address] [address] [address] Yinka Flores Ketones Ql (U) Negative Normal NEGATIVE [facility] Comment on above: Performed By: #### U AMIC #### [facility] [address] [address] [address] Yinka Flores LEUKOCYTES Negative Normal NEGATIVE [facility] Comment on above: Performed By: #### U AMIC #### [facility] [address] [address] [address] Yinka Flores MUCOUS NONE SEEN Normal NONE SEEN [facility] Comment on above: Performed By: #### U AMIC #### [facility] [address] [address] [address] Yinka Flores Nitrite Ql (U) Negative Normal NEGATIVE [facility] Comment on above: Performed By: #### U AMIC #### [facility] [address] [address] [address] Yinka Flores pH (U) 6.0 [pH] Normal 5-9 [facility] Comment on above: Performed By: #### U AMIC #### [facility] [address] [address] [address] Yinka Flores RBC NONE SEEN Abnormal 0-2 [facility] Comment on above: Performed By: #### U AMIC #### [facility] [address] [address] [address] Yinka Flores SPEC GRAVITY <=1.005 Abnormal 1.005-<=1.025 [facility] Comment on above: Performed By: #### U AMIC #### [facility] [address] [address] [address] Yinka Flores UA PROTEIN Negative Normal NEGATIVE/ TRACE [facility] Comment on above: Performed By: #### U AMIC #### [facility] [address] [place] [address] Dr. Yinka Flores Urobilinogen Qn (U) 0.2 {Richi'U}/dL Normal 0.2 - 1.0 [facility] Comment on above: Performed By: #### U AMIC #### [facility] [address] [place] [address] Dr. Yinka Flores WBC NONE SEEN Normal NONE SEEN [facility] Comment on above: Performed By: #### U AMIC #### [facility] [address] [place] [address] Dr. Yinka Flores HEMOGLOBIN A1C (POC)on 07-15 HbA1c (Bld) [Mass fraction] 9.1 % Abnormal 4.2 - 5.6 % [facility] HEMOGLOBIN A1C (POC)on 03-19 HbA1c (Bld) [Mass fraction] 9.6 % Abnormal 4.2 - 5.6 % [facility] CBC AUTO DIFFon 11-21-2021 BASO # 0.1 103/ul Normal 0.0-0.1 [facility] Comment on above: Performed By: #### A 1C #### [facility] [address] [place] [address] Dr. Yinka Flores Basophils/100 WBC (Bld) 0.7 % Normal 0.2-2.0 [facility] Comment on above: Performed By: #### A 1C #### [facility] [address] [place] [address] Dr. Yinka Flores EO # 0.4 103/ul Normal 0.0-0.7 [facility] Comment on above: Performed By: #### A 1C #### [facility] [address] [place] [address] Dr. Yinka Flores Eosinophils/100 WBC (Bld) 4.0 % Normal 0.9-7.0 [facility] Comment on above: Performed By: #### A 1C #### [facility] [address] [place] [address] Dr. Yinka Flores Erythrocyte distribution width (RBC) [Ratio] 14.5 % Normal 11.0-15.0 [facility] Comment on above: Performed By: #### A 1C #### [facility] [address] [address] [address] Yinka Flores Hematocrit (Bld) [Volume fraction] 45.0 % Normal 42.0-54.0 [facility] Comment on above: Performed By: #### A 1C #### [facility] [address] [place] [address] Dr. Yinka Flores Hemoglobin (Bld) [Mass/Vol] 15.0 g/dL Normal 14.0-18.0 [facility] Comment on above: Performed By: #### A 1C #### [facility] [address] [place] [address] Dr. Yinka Flores IG # 0.06 10e3/ul Critically high 0.00-0.03 [facility] Comment on above: Performed By: #### A 1C #### [facility] [address] [place] [address] Dr. Yinka Flores IG % 0.6 % Critically high 0.0-0.5 [facility] Comment on above: Performed By: #### A 1C #### [facility] [address] [address] [address] Yinka Flores LYMPH # 2.1 103/ul Normal 1.2-3.8 [facility] Comment on above: Performed By: #### A 1C #### [facility] [address] [place] [address] Dr. Yinka Flores Lymphocytes/100 WBC (Bld) 19.6 % Critically low 20.5-60.0 [facility] Comment on above: Performed By: #### A 1C #### [facility] [address] [place] [address] Dr. Yinka Flores MANUAL DIFF REQ NO Normal [facility] Comment on above: Performed By: #### A 1C #### [facility] [address] [place] [address] Dr. Yinka Flores MCH (RBC) [Entitic mass] 26.1 pg Normal 25.9-34.0 [facility] Comment on above: Performed By: #### A 1C #### [facility] [address] [address] [address] Yinka Flores MCHC (RBC) [Mass/Vol] 33.3 g/dL Normal 29.9-35.2 [facility] Comment on above: Performed By: #### A 1C #### [facility] [address] [address] [address] Yinka Flores MCV (RBC) [Entitic vol] 78.3 fL Critically low 80.0-94.0 [facility] Comment on above: Performed By: #### A 1C #### [facility] [address] [address] [address] Yinka Flores MONO # 0.8 103/ul Normal 0.3-0.8 [facility] Comment on above: Performed By: #### A 1C #### [facility] [address] [place] [address] Dr. Yinka Flores Monocytes/100 WBC (Bld) 7.6 % Normal 1.7-12.0 [facility] Comment on above: Performed By: #### A 1C #### [facility] [address] [address] [address] Yinka Flores NEUT # 7.1 103/ul Critically high 1.4-6.5 [facility] Comment on above: Performed By: #### A 1C #### [facility] [address] [place] [address] Dr. Yinka Flores Neutrophils/100 WBC (Bld) 67.5 % Normal 43.0-75.0 [facility] Comment on above: Performed By: #### A 1C #### [facility] [address] [address] [address] Yinka Flores Platelet mean volume (Bld) [Entitic vol] 10.0 fL Normal 9.5-13.5 [facility] Comment on above: Performed By: #### A 1C #### [facility] [address] [place] [address] Dr. Yinka Flores PLT 256 103/ul Normal 150-450 [facility] Comment on above: Performed By: #### A 1C #### [facility] [address] [place], [place] [address] Dr. Yinka Flores RBC 5.75 106/ul Normal 4.70-6.10 [facility] Comment on above: Performed By: #### A 1C #### [facility] [address] [place], [place] [address] Dr. Yinka Flores WBC 10.5 103/ul Normal 4.0-11.0 [facility] Comment on above: Performed By: #### A 1C #### [facility] [address] [place], [place] [address] ABD/PELVIS WO CONon [...] SHANEL GOMEZ Date: 2021-11-21 17:00 Normal [facility] URINE PROFILEon 2 Bilirubin Ql (U) Negative Normal NEGATIVE [facility] Comment on above: Performed By: #### M ALBR #### [facility] [address] [address] [address] Yinka Flores Clarity (U) CLEAR Normal CLEAR [facility] Comment on above: Performed By: #### M ALBR #### [facility] [address] [place] [address] Dr. Yinka Flores Color (U) YELLOW Normal YELLOW [facility] Comment on above: Performed By: #### M ALBR #### [facility] [address] [place] [address] Dr. Yinka Flores ERUAHTrip A micrscopic examina tion will be performed if indicated. Normal [facility] Comment on above: Performed By: #### M ALBR #### [facility] [address] [place] [address] Dr. Yinka Flores Glucose Ql (U) 1000 mg/dl Abnormal NEGATIVE [facility] Comment on above: Performed By: #### M ALBR #### [facility] [address] [place] [address] Dr. Yinka Flores Hemoglobin Ql (U) Negative Normal NEGATIVE [facility] Comment on above: Performed By: #### M ALBR #### [facility] [address] [place] [address] Dr. Yinka Flores Ketones Ql (U) Negative Normal NEGATIVE [facility] Comment on above: Performed By: #### M ALBR #### [facility] [address] [place] [address] Dr. Yinka Flores LEUKOCYTES Negative Normal NEGATIVE [facility] Comment on above: Performed By: #### M ALBR #### [facility] [address] [place] [address] Dr. Yinka Flores Nitrite Ql (U) Negative Normal NEGATIVE [facility] Comment on above: Performed By: #### M ALBR #### [facility] [address] [place] [address] Dr. Yinka Flores pH (U) 5.0 [pH] Normal 5-9 [facility] Comment on above: Performed By: #### M ALBR #### [facility] [address] [place] [address] Dr. Yinka Flores SPEC GRAVITY 1.020 Normal 1.005-<=1.025 [facility] Comment on above: Performed By: #### M ALBR #### [facility] [address] [place] [address] Dr. Yinka Flores UA PROTEIN Negative Normal NEGATIVE/ TRACE [facility] Comment on above: Performed By: #### M ALBR #### [facility] [address] [place] [address] Dr. Yinka Flores UR MICRO IND NOT INDICATED Normal [facility] Comment on above: Performed By: #### M ALBR #### [facility] [address] [place] [address] Dr. Yinka Flores Urobilinogen Qn (U) 0.2 {Richi'U}/dL Normal 0.2 - 1.0 [facility] Comment on above: Performed By: #### M ALBR #### [facility] [address] [place] [address] Dr. Yinka Flores LACTATE/LACTIC ACIDon 2021 Lactate [Moles/Vol] 1.4 mmol/L Normal 0.4-1.9 [facility] Comment on above: Performed By: #### L ACT #### [facility] [address] [place] [address] Dr. Yinka Flores LIPASEon 11-21-2021 Lipase [Catalytic activity/Vol] 262.0 U/L Normal 73.0-393.0 [facility] Comment on above: Performed By: #### M ALBR #### [facility] [address] [place] [address] Dr. Yinka Flores PROF 14(COMP METB)on 022 Albumin [Mass/Vol] 3.3 g/dL Critically low 3.4-5.0 [facility] Comment on above: Performed By: #### M ALBR #### [facility] [address] [place] [address] Dr. Yinka Flores Albumin/Globulin [Mass ratio] 0.7 {ratio} Normal [facility] Comment on above: Performed By: #### M ALBR #### [facility] [address] [address] [address] Yinka Flores ALP [Catalytic activity/Vol] 187 U/L Critically high 46-116 [facility] Comment on above: Performed By: #### M ALBR #### [facility] [address] [address] [address] Yinka Flores ALT [Catalytic activity/Vol] 50 U/L Normal 16-63 [facility] Comment on above: Performed By: #### M ALBR #### [facility] [address] [address] [address] Yinka Flores Anion gap [Moles/Vol] 11.5 mmol/L Normal [facility] Comment on above: Performed By: #### M ALBR #### [facility] [address] [address] [address] Yinka Flores AST [Catalytic activity/Vol] 33 U/L Normal 15-37 [facility] Comment on above: Performed By: #### M ALBR #### [facility] [address] [address] [address] Yinka Flores Bilirubin [Mass/Vol] 0.4 mg/dL Normal 0.2-1.0 [facility] Comment on above: Performed By: #### M ALBR #### [facility] [address] [address] [address] Yinka Flores Calcium [Mass/Vol] 8.8 mg/dL Normal 8.5-10.1 [facility] Comment on above: Performed By: #### M ALBR #### [facility] [address] [address] [address] Yinka Flores Chloride [Moles/Vol] 100 mmol/L Normal 98-107 [facility] Comment on above: Performed By: #### M ALBR #### [facility] [address] [address] [address] Yinka Flores CO2 [Moles/Vol] 26.7 mmol/L Normal 21.0-32.0 [facility] Comment on above: Performed By: #### M ALBR #### [facility] [address] [address] [address] Yinka Flores Creatinine [Mass/Vol] 0.91 mg/dL Normal 0.70-1.30 [facility] Comment on above: Performed By: #### M ALBR #### [facility] [address] [address] [address] Yinka Flores EGFR-AF SLOVAK >60 Normal >=60 [facility] Comment on above: Performed By: #### M ALBR #### [facility] [address] [address] [address] Yinka Flores EGFR-NON AF SLOVAK >60 Normal >=60 [facility] Comment on above: Performed By: #### M ALBR #### [facility] [address] [place] [address] Dr. Yinka Flores Globulin (S) [Mass/Vol] 5.0 g/dL Normal [facility] Comment on above: Performed By: #### M ALBR #### [facility] [address] [place] [address] Dr. Yinka Flores Glucose [Mass/Vol] 379 mg/dL Critically high 74-106 [facility] Comment on above: Performed By: #### M ALBR #### [facility] [address] [place] [address] Dr. Yinka Flores Potassium [Moles/Vol] 4.2 mmol/L Normal 3.5-5.1 [facility] Comment on above: Performed By: #### M ALBR #### [facility] [address] [place] [address] Dr. Yinka Flores Protein [Mass/Vol] 8.3 g/dL Critically high 6.4-8.2 [facility] Comment on above: Performed By: #### M ALBR #### [facility] [address] [place] [address] Dr. Yinka Flores Sodium [Moles/Vol] 134 mmol/L Critically low 136-145 [facility] Comment on above: Performed By: #### M ALBR #### [facility] [address] [place] [address] Dr. Yinka Flores Urea nitrogen [Mass/Vol] 19.0 mg/dL Critically high 7.0-18.0 [facility] Comment on above: Performed By: #### M ALBR #### [facility] [address] [place] [address] Dr. Yinka Flores Urea nitrogen/Creatinin e [Mass ratio] 20.9 mg/mg Normal [facility] Comment on above: Performed By: #### M ALBR #### [facility] [address] [place] [address] Dr. Yinka Flores PROTIMEon 11-21-2021 INR Coag (PPP) [Relative time] 1.01 {INR} Normal [facility] Comment on above: Performed By: #### M ALBR #### [facility] [address] [place] [address] Dr. Yinka Flores INR GUIDELINES SEE BELOW Normal [facility] Comment on above: Result Comment: JAMEE RED INR: 2.0 - 3.0 CONDITIONS NOT LISTED BELOW 2.5 - 3.5 FOR PROSTHETIC HEART VALVE REPLACEMENT 2.5 - 3.5 RECURRENT THROMBOSIS Performed By: #### M ALBR #### [facility] [address] [place] [address] Dr. Yinka Flores PT Coag (PPP) [Time] 10.9 s Normal 9.0-11.6 [facility] Comment on above: Performed By: #### M ALBR #### [facility] [address] [place] [address] Dr. Yinka Flores PTTon 11-21-2021 aPTT Coag (Bld) [Time] 26.2 s Normal 22.3-36.2 [facility] Comment on above: Performed By: #### M ALBR #### [facility] [address] [place] [address] Dr. Yinka Flores CBC AUTO DIFFon 09-05-2021 BASO # 0.1 103/ul Normal 0.0-0.1 [facility] Comment on above: Performed By: #### C BC #### [facility] [address] [address] [address] Yinka Flores Basophils/100 WBC (Bld) 0.7 % Normal 0.2-2.0 [facility] Comment on above: Performed By: #### C BC #### [facility] [address] [place] [address] Dr. Yinka Flores EO # 0.4 103/ul Normal 0.0-0.7 [facility] Comment on above: Performed By: #### C BC #### [facility] [address] [place] [address] Dr. Yinka Flores Eosinophils/100 WBC (Bld) 4.9 % Normal 0.9-7.0 [facility] Comment on above: Performed By: #### C BC #### [facility] [address] [place] [address] Dr. Yinka Flores Erythrocyte distribution width (RBC) [Ratio] 14.4 % Normal 11.0-15.0 [facility] Comment on above: Performed By: #### C BC #### [facility] [address] [place] [address] Dr. Yinka Flores Hematocrit (Bld) [Volume fraction] 43.5 % Normal 42.0-54.0 [facility] Comment on above: Performed By: #### C BC #### [facility] [address] [place] [address] Dr. Yinka Flores Hemoglobin (Bld) [Mass/Vol] 14.4 g/dL Normal 14.0-18.0 [facility] Comment on above: Performed By: #### C BC #### [facility] [address] [place] [address] Dr. Yinka Flores IG # 0.03 10e3/ul Normal 0.00-0.03 [facility] Comment on above: Performed By: #### C BC #### [facility] [address] [place] [address] Dr. Yinka Flores IG % 0.4 % Normal 0.0-0.5 [facility] Comment on above: Performed By: #### C BC #### [facility] [address] [place] [address] Dr. Yinka Flores LYMPH # 1.9 103/ul Normal 1.2-3.8 [facility] Comment on above: Performed By: #### C BC #### [facility] [address] [place] [address] Dr. Yinka Flores Lymphocytes/100 WBC (Bld) 23.5 % Normal 20.5-60.0 [facility] Comment on above: Performed By: #### C BC #### [facility] [address] [place] [address] Dr. Yinka Flores MANUAL DIFF REQ NO Normal [facility] Comment on above: Performed By: #### C BC #### [facility] [address] [place] [address] Dr. Yinka Flores MCH (RBC) [Entitic mass] 26.3 pg Normal 25.9-34.0 [facility] Comment on above: Performed By: #### C BC #### [facility] [address] [place] [address] Dr. Yinka Flores MCHC (RBC) [Mass/Vol] 33.1 g/dL Normal 29.9-35.2 [facility] Comment on above: Performed By: #### C BC #### [facility] [address] [place] [address] Dr. Yinka Flores MCV (RBC) [Entitic vol] 79.5 fL Critically low 80.0-94.0 [facility] Comment on above: Performed By: #### C BC #### [facility] [address] [place] [address] Dr. Yinka Flores MONO # 0.6 103/ul Normal 0.3-0.8 [facility] Comment on above: Performed By: #### C BC #### [facility] [address] [place] [address] Dr. Yinka Flores Monocytes/100 WBC (Bld) 7.0 % Normal 1.7-12.0 [facility] Comment on above: Performed By: #### C BC #### [facility] [address] [place] [address] Dr. Yinka Flores NEUT # 5.2 103/ul Normal 1.4-6.5 [facility] Comment on above: Performed By: #### C BC #### [facility] [address] [place] [address] Dr. Yinka Flores Neutrophils/100 WBC (Bld) 63.5 % Normal 43.0-75.0 [facility] Comment on above: Performed By: #### C BC #### [facility] [address] [place] [address] Dr. Yinka Flores Platelet mean volume (Bld) [Entitic vol] 11.0 fL Normal 9.5-13.5 [facility] Comment on above: Performed By: #### C BC #### [facility] [address] [place] [address] Dr. Yinka Flores PLT 263 103/ul Normal 150-450 [facility] Comment on above: Performed By: #### C BC #### [facility] [address] [place] [address] Dr. Yinka Flores RBC 5.47 106/ul Normal 4.70-6.10 [facility] Comment on above: Performed By: #### C BC #### [facility] [address] [place] [address] Dr. Yinka Flores WBC 8.1 103/ul Normal 4.0-11.0 [facility] Comment on above: Performed By: #### C BC #### [facility] [address] [place] [address] Dr. Yinka Flores GLYCOHEMOGLOBIN A1Con 2021 ADA RECOMMENDATION ADA THERAPEUTIC TARG ET 6.0 - 7.0 ACTION SUGGESTED > 7.0 Normal [facility] Comment on above: Performed By: #### A 1C #### [facility] [address] [place] [address] Dr. Yinka Flores Glucose [Mass/Vol] 272 mg/dL Normal [facility] Comment on above: Performed By: #### A 1C #### [facility] [address] [place] [address] Dr. Yinka Flores HbA1c (Bld) [Mass fraction] 11.1 % Critically high <=6.0 [facility] Comment on above: Performed By: #### A 1C #### [facility] [address] [address] [address] Yinka Flores LIPID PROFILEon 09-05-2021 CHOL-HDL RATIO NORM SEE BELOW Normal [facility] Comment on above: Result Comment: 3.3 - 4.4 LOW RISK 4.4 - 7.1 AVERAGE RISK 7.1 - 11.0 MODERATE RISK >11.0 HIGH RISK Performed By: #### M ALBR #### [facility] [address] [address] [address] Yinka Flores Cholesterol [Mass/Vol] 218 mg/dL Critically high <=200 [facility] Comment on above: Performed By: #### M ALBR #### [facility] [address] [address] [address] Yinka Flores Cholesterol in HDL [Mass/Vol] 34 mg/dL Critically low 40-60 [facility] Comment on above: Performed By: #### M ALBR #### [facility] [address] [address] [address] Yinka Flores Cholesterol in LDL [Mass/Vol] 111.0 mg/dL Normal [facility] Comment on above: Performed By: #### M ALBR #### [facility] [id number] Yinka Flores Cholesterol.total/ Cholesterol in HDL [Mass ratio] 6.4 {ratio} Normal [facility] Comment on above: Performed By: #### M ALBR #### [facility] [id number] Yinka Flores HDL NORMAL > or = 60 mg/dl - LO W CARDIOVASCULAR RISK <40 mg/dl - HIGH CARDIOVASCULAR RISK Normal [facility] Comment on above: Performed By: #### M ALBR #### [facility] [id number] Yinka Flores LDL CALC NORMAL SEE BELOW Normal [facility] Comment on above: Result Comment: <100 mg/dl OPTIMAL 100 - 129 mg/dl NEAR OR ABOVE OPTIMAL 130 - 159 mg/dl BORDERLINE HIGH 160 - 189 mg/dl HIGH >190 mg/dl VERY HIGH Performed By: #### M ALBR #### [facility] [address] [place] [address] Dr. Yinka Flores Triglyceride [Mass/Vol] 365 mg/dL Critically high <=150 [facility] Comment on above: Performed By: #### M ALBR #### [facility] [address] [place] [address] Dr. Yinka Flores VLDL CALC 73.0 mg/dL Normal [facility] Comment on above: Performed By: #### M ALBR #### [facility] [address] [place] [address] Dr. Yinka Flores MICROALBUMIN, BETHEL URon 08-09 mALB 2.4 mg/L Normal <=30.0 [facility] Comment on above: Performed By: #### M ALBR #### [facility] [address] [place] [address] Dr. Yinka Folres PROF 14(COMP METB)on 022 Albumin [Mass/Vol] 3.5 g/dL Normal 3.4-5.0 [facility] Comment on above: Performed By: #### M ALBR #### [facility] [address] [place] [address] Dr. Yinka Flores Albumin/Globulin [Mass ratio] 0.7 {ratio} Normal [facility] Comment on above: Performed By: #### M ALBR #### [facility] [address] [place] [address] Dr. Yinka Flores ALP [Catalytic activity/Vol] 176 U/L Critically high 46-116 [facility] Comment on above: Performed By: #### M ALBR #### [facility] [address] [place] [address] Dr. Yinka Flores ALT [Catalytic activity/Vol] 48 U/L Normal 16-63 [facility] Comment on above: Performed By: #### M ALBR #### [facility] [address] [place] [address] Dr. Yinka Flores Anion gap [Moles/Vol] 12.8 mmol/L Normal [facility] Comment on above: Performed By: #### M ALBR #### [facility] [address] [place] [address] Dr. Yinka Flores AST [Catalytic activity/Vol] 19 U/L Normal 15-37 [facility] Comment on above: Performed By: #### M ALBR #### [facility] [address] [place] [address] Dr. Yinka Flores Bilirubin [Mass/Vol] 0.4 mg/dL Normal 0.2-1.3 [facility] Comment on above: Performed By: #### M ALBR #### [facility] [address] [place] [address] Dr. Yinka Flores Calcium [Mass/Vol] 8.8 mg/dL Normal 8.5-10.1 [facility] Comment on above: Performed By: #### M ALBR #### [facility] [address] [place] [address] Dr. Yinka Flores Chloride [Moles/Vol] 99 mmol/L Normal 98-107 [facility] Comment on above: Performed By: #### M ALBR #### [facility] [address] [place] [address] Dr. Yinka Flores CO2 [Moles/Vol] 25.3 mmol/L Normal 22.0-30.0 [facility] Comment on above: Performed By: #### M ALBR #### [facility] [address] [place] [address] Dr. Yinka Flores Creatinine [Mass/Vol] 0.71 mg/dL Normal 0.66-1.25 [facility] Comment on above: Performed By: #### M ALBR #### [facility] [address] [place] [address] Dr. Yinka Flores EGFR-AF SLOVAK >60 Normal >=60 [facility] Comment on above: Performed By: #### M ALBR #### [facility] [address] [place] [address] Dr. Yinka Flores EGFR-NON AF SLOVAK >60 Normal >=60 [facility] Comment on above: Performed By: #### M ALBR #### [facility] [address] [address] [address] Yinka Flores Globulin (S) [Mass/Vol] 4.9 g/dL Normal [facility] Comment on above: Performed By: #### M ALBR #### [facility] [address] [address] [address] Yinka Flores Glucose [Mass/Vol] 394 mg/dL Critically high 74-106 [facility] Comment on above: Performed By: #### M ALBR #### [facility] [address] [address] [address] Yinka Flores Potassium [Moles/Vol] 4.1 mmol/L Normal 3.4-5.0 [facility] Comment on above: Performed By: #### M ALBR #### [facility] [address] [address] [address] Yinka Flores Protein [Mass/Vol] 8.4 g/dL Critically high 6.1-8.2 [facility] Comment on above: Performed By: #### M ALBR #### [facility] [address] [address] [address] Yinka Flores Sodium [Moles/Vol] 133 mmol/L Critically low 137-145 [facility] Comment on above: Performed By: #### M ALBR #### [facility] [address] [address] [address] Yinka Flores Urea nitrogen [Mass/Vol] 12.0 mg/dL Normal 7.0-18.0 [facility] Comment on above: Performed By: #### M ALBR #### [facility] [address] [address] [address] Yinka Flores Urea nitrogen/Creatinin e [Mass ratio] 16.9 mg/mg Normal [facility] Comment on above: Performed By: #### M ALBR #### [facility] [address] [place] [address] Dr. Yinka Flores UA RANDOM W/MICROSCOPICon BACTERIA NONE SEEN Normal NONE SEEN [facility] Comment on above: Performed By: #### U AMIC #### [facility] [address] [address] [address] Yinka Flores Bilirubin Ql (U) Negative Normal NEGATIVE [facility] Comment on above: Performed By: #### U AMIC #### [facility] [address] [address] [address] Yinka Flores CAST NONE SEEN Normal NONE SEEN [facility] Comment on above: Performed By: #### U AMIC #### [facility] [address] [address] [address] Yinka Flores Clarity (U) CLEAR Normal CLEAR [facility] Comment on above: Performed By: #### U AMIC #### [facility] [address] [address] [address] Yinka Flores Color (U) LT. YELLOW Normal YELLOW [facility] Comment on above: Performed By: #### U AMIC #### [facility] [address] [address] [address] Yinka Flores Crystals LM Nom (Urine sed) NONE SEEN Normal NONE SEEN [facility] Comment on above: Performed By: #### U AMIC #### [facility] [address] [address] [address] Yinka Flores Epithelial cells LM Ql (Urine sed) RARE Normal NONE SEEN /RARE [facility] Comment on above: Performed By: #### U AMIC #### [facility] [address] [address] [address] Yinka Flores Glucose Ql (U) >1000 Abnormal NEGATIVE [facility] Comment on above: Performed By: #### U AMIC #### [facility] [address] [address] [address] Yinka Flores Hemoglobin Ql (U) Negative Normal NEGATIVE [facility] Comment on above: Performed By: #### U AMIC #### [facility] [address] [address] [address] Yinka Flores Ketones Ql (U) TRACE Abnormal NEGATIVE [facility] Comment on above: Performed By: #### U AMIC #### [facility] [address] [address] [address] Yinka Flores LEUKOCYTES Negative Normal NEGATIVE [facility] Comment on above: Performed By: #### U AMIC #### [facility] [address] [address] [address] Yinka Flores MUCOUS NONE SEEN Normal NONE SEEN [facility] Comment on above: Performed By: #### U AMIC #### [facility] [address] [address] [address] Yinka Flores Nitrite Ql (U) Negative Normal NEGATIVE [facility] Comment on above: Performed By: #### U AMIC #### [facility] [address] [address] [address] Yinka Flores pH (U) 5.5 [pH] Normal 5-9 [facility] Comment on above: Performed By: #### U AMIC #### [facility] [address] [place] [address] Dr. Yinka Flores RBC 0-2 Normal 0-2 [facility] Comment on above: Performed By: #### U AMIC #### [facility] [address] [place] [address] Dr. Yinka Flores SPEC GRAVITY 1.010 Normal 1.005-<=1.025 [facility] Comment on above: Performed By: #### U AMIC #### [facility] [address] [place] [address] Dr. Yinka Flores UA PROTEIN Negative Normal NEGATIVE/ TRACE [facility] Comment on above: Performed By: #### U AMIC #### [facility] [address] [place] [address] Dr. Yinka Flores Urobilinogen Qn (U) 0.2 {Richi'U}/dL Normal 0.2 - 1.0 [facility] Comment on above: Performed By: #### U AMIC #### [facility] [address] [place] [address] Dr. Yinka Flores WBC NONE SEEN Normal NONE SEEN [facility] Comment on above: Performed By: #### U AMIC #### [facility] [address] [place], [place] [id number] Dr. Yinka Flores ECHOon 09-03-2021 [facility] LVEF TRANSTHORACIC ECHOon LV Ejection Fraction 61 % [facility] Vital Signs Date Time Vital Sign Value Performing Clinician Facility 10-01-2023 09:17-0400 Body mass index (BMI) [Ratio] 38.02 kg/m2 William Howell MD, PhD Work Phone: [facility] 10-01-2023 09:17-0400 Body temperature 96.8 [degF] William Howell MD, PhD Work Phone: [facility] 10-01-2023 09:17-0400 Body weight 120.2 kg William Howell MD, PhD Work Phone: [facility] Comment on above: shoes on 10-01-2023 09:17-0400 Diastolic blood pressure 70 mm[Hg] William Howell MD, PhD Work Phone: [facility] 10-01-2023 09:17-0400 Heart rate 59 /min William Howell MD, PhD Work Phone: [facility] Comment on above: provider notified 10-01-2023 09:17-0400 Respiratory rate 18 /min William Howell MD, PhD Work Phone: [facility] 10-01-2023 09:17-0400 SaO2% (BldA) [Mass fraction] 10 % William Howell MD, PhD Work Phone: [facility] 10-01-2023 09:17-0400 Systolic blood pressure 143 mm[Hg] William Howell MD, PhD Work Phone: [facility] 08-29-2023 07:50-0400 Body weight 122 kg Kylee Dalal APRN.CONDENSER TESTER Work Phone: [facility] 08-29-2023 07:50-0400 Diastolic blood pressure 62 mm[Hg] Kylee Dalal APRN.CONDENSER TESTER Work Phone: [facility] 08-29-2023 07:50-0400 Heart rate 61 /min Kylee Dalal NEON PUMPER.CONDENSER TESTER Work Phone: [facility] 08-29-2023 07:50-0400 SaO2% (BldA) [Mass fraction] 97 % Kylee Dalal NEON PUMPER.CONDENSER TESTER Work Phone: [facility] 08-29-2023 07:50-0400 Systolic blood pressure 120 mm[Hg] Kylee Dalal NEON PUMPER.CONDENSER TESTER Work Phone: [facility] 07-09-2023 14:48-0500 Body temperature 97.59 [degF] William Howell MD, PhD Work Phone: [facility] 07-09-2023 14:48-0500 Body weight 124.9 kg William Howell MD, PhD Work Phone: [facility] 07-09-2023 14:48-0500 Diastolic blood pressure 73 mm[Hg] William Howell MD, PhD Work Phone: [facility] 07-09-2023 14:48-0500 Heart rate 71 /min William Howell MD, PhD Work Phone: [facility] 07-09-2023 14:48-0500 Respiratory rate 18 /min William Howell MD, PhD Work Phone: [facility] 07-09-2023 14:48-0500 SaO2% (BldA) [Mass fraction] 94 % William Howell MD, PhD Work Phone: [facility] 07-09-2023 14:48-0500 Systolic blood pressure 156 mm[Hg] William Howell MD, PhD Work Phone: [facility] 04-16-2023 11:49-0500 Body height 177.8 cm William Howell MD, PhD Work Phone: [facility] 04-16-2023 11:49-0500 Body temperature 97.81 [degF] William Howell MD, PhD Work Phone: [facility] 04-16-2023 11:49-0500 Body weight 126.1 kg William Howell MD, PhD Work Phone: [facility] 04-16-2023 11:49-0500 Diastolic blood pressure 89 mm[Hg] William Howell MD, PhD Work Phone: [facility] 04-16-2023 11:49-0500 Heart rate 74 /min William Howell MD, PhD Work Phone: [facility] 04-16-2023 11:49-0500 Respiratory rate 14 /min William Howell MD, PhD Work Phone: [facility] 04-16-2023 11:49-0500 SaO2% (BldA) [Mass fraction] 99 % William Howell MD, PhD Work Phone: [facility] 04-16-2023 11:49-0500 Systolic blood pressure 161 mm[Hg] William Howell MD, PhD Work Phone: [facility] 01-22-2023 09:32-0400 Body temperature 97.39 [degF] William Howell MD, PhD Work Phone: [facility] 01-22-2023 09:32-0400 Body weight 124.74 kg William Howell MD, PhD Work Phone: [facility] 01-22-2023 09:32-0400 Diastolic blood pressure 82 mm[Hg] William Howell MD, PhD Work Phone: [facility] 01-22-2023 09:32-0400 Heart rate 82 /min William Howell MD, PhD Work Phone: [facility] 01-22-2023 09:32-0400 Respiratory rate 18 /min William Howell MD, PhD Work Phone: [facility] 01-22-2023 09:32-0400 SaO2% (BldA) [Mass fraction] 99 % William Howell MD, PhD Work Phone: [facility] 01-22-2023 09:32-0400 Systolic blood pressure 151 mm[Hg] William Howell MD, PhD Work Phone: [facility] 10-30-2022 11:46-0400 Body temperature 98.4 [degF] William Howell MD, PhD Work Phone: [facility] 10-30-2022 11:46-0400 Body weight 124.29 kg William Howell MD, PhD Work Phone: [facility] 10-30-2022 11:46-0400 Diastolic blood pressure 78 mm[Hg] William Howell MD, PhD Work Phone: [facility] 10-30-2022 11:46-0400 Heart rate 61 /min William Howell MD, PhD Work Phone: [facility] 10-30-2022 11:46-0400 Respiratory rate 18 /min William Howell MD, PhD Work Phone: [facility] 10-30-2022 11:46-0400 SaO2% (BldA) [Mass fraction] 98 % William Howell MD, PhD Work Phone: [facility] 10-30-2022 11:46-0400 Systolic blood pressure 173 mm[Hg] William Howell MD, PhD Work Phone: [facility] 10-15-2022 13:44-0400 Body height 179.1 cm Kylee Dalal APRN.CONDENSER TESTER Work Phone: [facility] 10-15-2022 13:44-0400 Body weight 124.29 kg Kylee Dalal NEON PUMPER.CONDENSER TESTER Work Phone: [facility] 10-15-2022 13:44-0400 Diastolic blood pressure 78 mm[Hg] Kylee Dalal NEON PUMPER.CONDENSER TESTER Work Phone: [facility] 10-15-2022 13:44-0400 Heart rate 72 /min Kylee Dalal NEON PUMPER.CONDENSER TESTER Work Phone: [facility] 10-15-2022 13:44-0400 Systolic blood pressure 134 mm[Hg] Kylee Dalal NEON PUMPER.CONDENSER TESTER Work Phone: [facility] 08-05-2022 09:38-0500 Body height 177.8 cm William Howell MD, PhD Work Phone: [facility] 08-05-2022 09:38-0500 Body temperature 98.1 [degF] William Howell MD, PhD Work Phone: [facility] 08-05-2022 09:38-0500 Body weight 126.1 kg William Howell MD, PhD Work Phone: [facility] 08-05-2022 09:38-0500 Diastolic blood pressure 85 mm[Hg] William Howell MD, PhD Work Phone: [facility] 08-05-2022 09:38-0500 Heart rate 62 /min William Howell MD, PhD Work Phone: [facility] 08-05-2022 09:38-0500 Respiratory rate 16 /min William Howell MD, PhD Work Phone: [facility] 08-05-2022 09:38-0500 SaO2% (BldA) [Mass fraction] 97 % William Howell MD, PhD Work Phone: [facility] 02-27-2023 09:38-0500 Systolic blood pressure 170 mm[Hg] William Howell MD, PhD Work Phone: [facility] 07-15-2022 15:50-0500 Body weight 128.82 kg Kylee Mulugeta NEON PUMPER.CONDENSER TESTER Work Phone: [facility] 07-15-2022 15:50-0500 Diastolic blood pressure 80 mm[Hg] Kylee Mulugeta NEON PUMPER.CONDENSER TESTER Work Phone: [facility] 07-15-2022 15:50-0500 Heart rate 72 /min Kylee Mulugeta NEON PUMPER.CONDENSER TESTER Work Phone: [facility] 07-15-2022 15:50-0500 Systolic blood pressure 160 mm[Hg] Kylee Mulugeta NEON PUMPER.CONDENSER TESTER Work Phone: [facility] 03-19-2022 12:08-0400 Body weight 120.66 kg Kylee Mulugeta NEON PUMPER.CONDENSER TESTER Work Phone: [facility] 03-19-2022 12:08-0400 Diastolic blood pressure 90 mm[Hg] Kylee Mulugeta NEON PUMPER.CONDENSER TESTER Work Phone: [facility] 03-19-2022 12:08-0400 Heart rate 68 /min Kylee Mulugeta NEON PUMPER.CONDENSER TESTER Work Phone: [facility] 03-19-2022 12:08-0400 Systolic blood pressure 150 mm[Hg] Kylee Mulugeta NEON PUMPER.CONDENSER TESTER Work Phone: [facility] 02-18-2022 11:11-0400 Body height 178.5 cm William Howell MD, PhD Work Phone: [facility] 02-18-2022 11:11-0400 Body temperature 97.5 [degF] William Howell MD, PhD Work Phone: [facility] 02-18-2022 11:11-0400 Body weight 121.75 kg William Howell MD, PhD Work Phone: [facility] 02-18-2022 11:11-0400 Diastolic blood pressure 93 mm[Hg] William Howell MD, PhD Work Phone: [facility] 02-18-2022 11:11-0400 Heart rate 62 /min William Howell MD, PhD Work Phone: [facility] 02-18-2022 11:11-0400 Respiratory rate 20 /min William Howell MD, PhD Work Phone: [facility] 02-18-2022 11:11-0400 SaO2% (BldA) [Mass fraction] 98 % William Howell MD, PhD Work Phone: [facility] 02-18-2022 11:11-0400 Systolic blood pressure 154 mm[Hg] William Howell MD, PhD Work Phone: [facility] 11-26-2021 11:37-0400 Body temperature 97.2 [degF] William Howell MD, PhD Work Phone: [facility] 11-26-2021 11:37-0400 Body weight 124.24 kg William Howell MD, PhD Work Phone: [facility] 11-26-2021 11:37-0400 Diastolic blood pressure 88 mm[Hg] William Howell MD, PhD Work Phone: [facility] 11-26-2021 11:37-0400 Heart rate 58 /min William Howell MD, PhD Work Phone: [facility] 11-26-2021 11:37-0400 Respiratory rate 18 /min William Howell MD, PhD Work Phone: [facility] 11-26-2021 11:37-0400 SaO2% (BldA) [Mass fraction] 99 % William Howell MD, PhD Work Phone: [facility] 11-26-2021 11:37-0400 Systolic blood pressure 150 mm[Hg] William Howell MD, PhD Work Phone: [facility] Encounters Encounter Date Encounter Type Care Provider Facility Start: 12-10-2023 End: 12-10-2023 ambulatory LARS PHOENIX Not Available Start: 12-09-2023 End: 12-09-2023 Departed Referred Buffy Juliet Work Phone: [facility] [place] Work Phone: Start: 12-09-2023 End: 12-09-2023 ambulatory Buffy Rascon Declanmarieyadiellurdes Work Phone: [facility] Work Phone: Start: 12-02-2023 Encounter for other preprocedural examination [facility] Start: 12-02-2023 End: 12-02-2023 ambulatory LARS PHOENIX [facility] Start: 12-01-2023 End: 12-01-2023 ambulatory BUFFY GILMOREYADIELLurdes Not Available Start: 11-24-2023 End: 11-24-2023 ambulatory ROSA CARD Not Available Start: 10-29-2023 End: 10-29-2023 ambulatory [facility] Start: 10-29-2023 ambulatory BUFFY Rascon DECLANMarieSTEPHANIE [facility] Start: 10-28-2023 Orders Only Meg Chowdhury NEON PUMPER.CONDENSER TESTER Work Phone: Endocrinology Start: 10-23-2023 ambulatory [facility] Endocrinol ogy Comment on above: Question Start: 10-23-2023 E-mail encounter margarita m caregiver [facility] Provider Endocrinology Start: 10-17-2023 Telephone encounter Kylee gracehalsmita NEON PUMPER.CONDENSER TESTER Work Phone: Endocrinology Start: 10-14-2023 Telephone encounter Raheem feldman Research Coordinator Hematology/Oncology Comment on above: Research (ARIA 2915 Survival Follow-up Last Call) Start: 10-14-2023 End: 10-14-2023 ambulatory BUFFY JULIET Not Available Start: 10-03-2023 End: 10-03-2023 ambulatory AMAN PACK Facility:[facility] Start: 10-01-2023 Chart abstracting Raheem burnette Research Coordinator Hematology/Oncology Comment on above: Research (ACTG 1920 Cycle 42 D28) Start: 10-01-2023 End: 10-01-2023 Nursing evaluation of patient and report Emma Tuttle natural gas basis trader/Oncology Comment on above: CML (chronic myeloid leukemia) (HCC) (Primary Dx) Start: 10-01-2023 End: 10-01-2023 Patient encounter procedure William Howell MD, PhD Work Phone: Hematology/Oncology Start: 10-01-2023 End: 10-02-2023 ambulatory William Howell MD, PhD Work Phone: Hematology/Oncology Comment on above: CML (chronic myelocy tic leukemia) (HCC) (Primary Dx) Start: 09-29-2023 Orders Only William painting MD, PhD Work Phone: Hematology/Oncology Comment on above: CML (chronic myeloid leukemia) (HCC) (Primary Dx) Start: 09-11-2023 ambulatory BUFFY CHUNG [facility] Start: 09-10-2023 Telephone encounter Sherrell [facility] Start: 08-29-2023 End: 08-29-2023 ambulatory KYLEE DALAL Facility:[facility] Start: 08-29-2023 End: 08-29-2023 Patient encounter procedure Kylee Dalal NEON PUMPER.CONDENSER TESTER Work Phone: Endocrinology Comment on above: Type 2 diabetes aris itus with microalbuminuria, with long-term current use of insulin (HCC) (Primary Dx); Primary hypertension; Mixed hyperlipidemia Start: 08-20-2023 Orders Only William painting MD, PhD Work Phone: Hematology/Oncology Comment on above: Chronic myeloid leuk emia (HCC) (Primary Dx) Start: 08-07-2023 End: 08-07-2023 ambulatory BUFFY JULIET Not Available Start: 07-31-2023 End: 08-01-2023 ambulatory [facility] Start: 07-09-2023 End: 07-09-2023 Patient encounter procedure William Howell MD, PhD Work Phone: [facility] Start: 07-09-2023 End: 07-09-2023 ambulatory William Howell MD, PhD Work Phone: Hematology/Oncology Comment on above: CML (chronic myelocy tic leukemia) (HCC) (Primary Dx) Start: 07-01-2023 End: 07-01-2023 ambulatory [facility] Start: 06-30-2023 End: 06-30-2023 ambulatory [facility] Start: 06-17-2023 End: 06-17-2023 ambulatory AMAN PACK Facility:[facility] Start: 06-13-2023 End: 06-13-2023 ambulatory CRUZITO LEE Facility:[facility] Start: 05-20-2023 Orders Only William painting MD, PhD Work Phone: Hematology/Oncology Comment on above: CML (chronic myeloid leukemia) (HCC) (Primary Dx) Start: 05-09-2023 Telephone encounter Raheem feldman Research Coordinator Hematology/Oncology Start: 05-06-2023 End: 05-06-2023 ambulatory BUFFY CHUNG Not Available Start: 04-29-2023 Telephone encounter Raheem feldman Research Coordinator Hematology/Oncology Comment on above: Research (ARIA 2915 Survival Follow-up) Start: 04-18-2023 End: 04-18-2023 ambulatory WILLIAM HOWELL Facility:[facility] Start: 04-18-2023 End: 04-18-2023 ambulatory AMAN PACK Facility:[facility] Start: 04-17-2023 End: 04-17-2023 Orders Only William Howell MD, PhD Work Phone: Hematology/Oncology Comment on above: CML (chronic myeloid leukemia) (HCC) (Primary Dx) Start: 04-16-2023 End: 04-16-2023 Orders Only William Howell MD, PhD Work Phone: Hematology/Oncology Comment on above: CML (chronic myeloid leukemia) (HCC) (Primary Dx) Chronic myeloid leuk emia (HCC) CML (chronic myelocy tic leukemia) (HCC) (Primary Dx) Start: 03-20-2023 Refill Kylee ni NEON PUMPER.CONDENSER TESTER Work Phone: Endocrinology Comment on above: Refill Request Start: 02-05-2023 End: 02-05-2023 Patient encounter procedure Buffy Chung Work Phone: [facility] [address] Work Phone: Start: 02-05-2023 End: 02-05-2023 ambulatory Buffy Chung Work Phone: [facility] Work Phone: Start: 02-03-2023 Chart abstracting Raheem burnette Research Coordinator Hematology/Oncology Comment on above: Research (Error) Start: 02-03-2023 Telephone encounter Raheem feldman Research Coordinator Hematology/Oncology Comment on above: Research (ARIA 2915 Survival Follow-up) Start: 01-22-2023 End: 01-22-2023 ambulatory William Howell MD, PhD Work Phone: Hematology/Oncology Comment on above: CML (chronic myelocy tic leukemia) (HCC) (Primary Dx) Chronic myeloid leuk emia (HCC) (Primary Dx) Start: 01-22-2023 End: 01-22-2023 ambulatory AMAN PACK Facility:[facility] Start: 01-22-2023 End: 01-22-2023 Nursing evaluation of patient and report Emma Tuttle natural gas basis trader/Oncology Comment on above: CML (chronic myeloid leukemia) (HCC) (Primary Dx) Start: 01-22-2023 End: 01-22-2023 Patient encounter procedure William Howell MD, PhD Work Phone: [facility] Start: 01-21-2023 Telephone encounter William taylor MD, PhD Work Phone: Hematology/Oncology Comment on above: Biopsy Request Start: 12-03-2022 Orders Only William painting MD, PhD Work Phone: Hematology/Oncology Comment on above: CML (chronic myeloid leukemia) (HCC) (Primary Dx) Start: 12-02-2022 Orders Only William painting MD, PhD Work Phone: Hematology/Oncology Comment on above: CML (chronic myeloid leukemia) (HCC) (Primary Dx) Start: 10-30-2022 End: 10-30-2022 ambulatory William Howell MD, PhD Work Phone: Hematology/Oncology Comment on above: CML (chronic myelocy tic leukemia) (HCC) (Primary Dx) Start: 10-30-2022 End: 10-30-2022 Patient encounter procedure William Howell MD, PhD Work Phone: [facility] Start: 10-16-2022 End: 10-17-2022 ambulatory [facility] Start: 10-15-2022 End: 10-16-2022 ambulatory [facility] Start: 10-15-2022 End: 10-15-2022 Patient encounter procedure Kylee Dalal APRN.CNP Work Phone: Endocrinology Comment on above: Type 2 diabetes aris itus with hyperglycemia, with long-term current use of insulin (HCC) (Primary Dx); Primary hypertension; Mixed hyperlipidemia Start: 09-17-2022 ambulatory Emma Tuttle RN matology/Oncology Comment on above: return call Start: 09-17-2022 E-mail encounter fro m caregiver Emma Tuttle RN [facility] Start: 08-06-2022 End: 08-07-2022 Orders Only [...] procedure William Howell MD, PhD Work Phone: [facility] Start: 07-30-2022 ambulatory Kylee ni APRN.CONDENSER TESTER Work Phone: Endocrinology Comment on above: Insulin Adjustments Start: 07-30-2022 E-mail encounter fro m caregiver Kylee Dalal APRN.CONDENSER TESTER Work Phone: [facility] Start: 07-30-2022 End: 07-30-2022 Nursing evaluation of [...] (chronic myeloid leukemia) (HCC) (Primary Dx) Start: 07-22-2022 Orders Only Efraín Villafana esearch Coordinator Hematology/Oncology Comment on above: Chronic myeloid leuk emia (HCC) (Primary Dx) Start: 07-15-2022 End: 07-15-2022 Patient encounter procedure Kylee Dalal APRN.CONDENSER TESTER Work Phone: Endocrinology Comment on above: Type [...] Refill Request Start: 05-12-2022 End: 05-12-2022 ambulatory CONDENSER TESTER [facility] Start: 05-10-2022 Orders Only William painting MD, PhD Work Phone: Hematology/Oncology Comment on above: Chronic myeloid leuk emia (HCC) (Primary Dx) CML (chronic myelocy tic leukemia) (HCC) (Primary Dx) Start: 05-03-2022 Telephone encounter Kylee campbell APRN.CONDENSER TESTER Work Phone: Endocrinology Comment on above: Patient Question Start: 03-25-2022 ambulatory Kylee ni APRN.CONDENSER TESTER Work Phone: Endocrinology Comment on above: Lab results Start: 03-25-2022 E-mail encounter fro m caregiver Kylee Dalal APRN.CNP Work Phone: [facility] Start: 03-19-2022 End: 03-19-2022 Patient encounter procedure Kylee Dalal APRN.CONDENSER TESTER Work Phone: Endocrinology Comment on above: Uncontrolled type 2 diabetes mellitus with hyperglycemia (HCC) (Primary Dx); Mixed hyperlipidemia Start: 02-18-2022 End: 02-18-2022 ambulatory William Howell MD, PhD Work Phone: Hematology/Oncology Comment on above: CML (chronic myelocy tic leukemia) (HCC) (Primary Dx) Start: 02-18-2022 End: 02-18-2022 Nursing evaluation of patient and report Emma Tuttle natural gas basis trader/Oncology Comment on above: CML (chronic myeloid leukemia) (HCC) (Primary Dx) Start: 02-18-2022 End: 02-18-2022 Patient encounter procedure William Howell MD, PhD Work Phone: [facility] Start: 02-15-2022 Orders Only William painting [...] Start: 11-30-2021 Telephone encounter Emma Gray i natural gas basis trader/Oncology Comment on above: Appointment Start: 11-29-2021 Orders [...] procedure William Howell MD, PhD Work Phone: [facility] Start: 11-21-2021 End: 11-21-2021 ambulatory CONDENSER TESTER BUFFY JULIET Facility:[facility] Start: 11-01-2021 End: 11-01-2021 ambulatory CONDENSER TESTER BUFFY JULIET Facility:[facility] Start: 10-03-2021 End: 10-03-2021 ambulatory CONDENSER TESTER [facility] Start: 09-11-2021 Telephone encounter Emma Gray i, RN Hematology/Oncology Comment on above: Patient Question Start: 09-10-2021 Orders Only William painting MD, PhD Work Phone: Hematology/Oncology Comment on above: CML (chronic myeloid leukemia) (HCC) (Primary Dx) Start: 09-06-2021 Telephone encounter Emma Gray i, RN Hematology/Oncology Comment on above: Medication Problem Start: 09-05-2021 End: 09-06-2021 ambulatory CONDENSER TESTER [facility] Start: 09-04-2021 Telephone encounter William taylor [...] Detail Performing Clinician Start: 10-01-2023 Echocardiography AMAN N ADERER Start: 07-09-2023 Echocardiography AMAN CASTRO Start: 06-30-2023 Follow-up visit Follow-up YAN DURHAM Start: 04-16-2023 Echo tthrc r-t 2d w/ wom-mode compl spec&colr d William Howell MD, PhD Work Phone: Start: 04-16-2023 Echocardiography AMAN CASTRO Start: 02-05-2023 XR pre/post mri xray Li Juliet Work Phone: Start: 02-05-2023 MRI of right shoulder L xavi Juliet Work Phone: Start: 01-22-2023 Echocardiography AMAN CASTRO Start: 10-15-2022 Hemoglobin A1c/Hemoglobin.total in Blood Kylee Mulugeta NEON PUMPER.CONDENSER TESTER Work Phone: Start: 08-06-2022 PSA screening DOMINIC CHUNG Comment on above: Performed By: #### M ALBR #### [facility] [address] [address] [address] Yinka Flores Start: 07-15-2022 Hemoglobin A1c/Hemoglobin.total in Blood Kylee Mulugeta NEON PUMPER.CONDENSER TESTER Work Phone: Start: 03-19-2022 Hemoglobin A1c/Hemoglobin.total in Blood Kylee Mulugeta NEON PUMPER.CONDENSER TESTER Work Phone: Start: 09-05-2021 PSA screening DOMINIC CHUNG Comment on above: Performed By: #### M ALBR #### [facility] [address] [address] [address] Yinka Flores Start: 09-03-2021 Echo tthrc r-t 2d w/ wom-mode compl spec&colr d Connie Burns APRN.CONDENSER TESTER Work Phone: Start: 09-03-2021 LVEF TRANSTHORACIC ECHO Connie Bunrs APRN.CONDENSER TESTER Work Phone: Start: 06-11-2021 Adult depression scr eening assessment Emma Tuttle RN Plan of Treatment Date Care Activity Detail Author Start: 08-06-2027 Prostate specific antigen measurement Prostate Cancer Screening Discussion [facility] Start: 05-13-2027 LIPID SCREEN LIPID SCREEN [facility] Start: 03-22-2027 LIPID SCREEN LIPID SCREEN [facility] Start: 02-18-2027 LIPID SCREEN LIPID SCREEN [facility] Start: 11-26-2026 LIPID SCREEN LIPID SCREEN [facility] Start: 09-03-2026 LIPID SCREEN LIPID SCREEN [facility] Start: 05-13-2025 DIABETES SCREEN DIABETES SCREEN [facility] Start: 03-22-2025 DIABETES SCREEN DIABETES SCREEN [facility] Start: 03-19-2025 DIABETES SCREEN DIABETES SCREEN [facility] Start: 02-18-2025 DIABETES SCREEN DIABETES SCREEN [facility] Start: 11-26-2024 DIABETES SCREEN DIABETES SCREEN [facility] Start: 09-03-2024 DIABETES SCREEN DIABETES SCREEN [facility] Start: 08-28-2024 BP Controlled (<130/80) BP Controlled (<130/80) [facility] Start: 07-24-2024 Adult BMI Screening Adult BMI Screening [facility] Start: 07-09-2024 Hepatitis B surface antibody level LDL Cholesterol [facility] Start: 06-30-2024 Tobacco Screening Tobacco Screening [facility] Start: 04-17-2024 Hepatitis B screening Urine Albumin:Creatinine Ratio [facility] Start: 04-01-2024 Hemoglobin A1c measurement HbA1C [facility] Start: 03-08-2024 End: 03-08-2024 Patient encounter procedure 03/08/2024 8:30 AM EDT Office Visit Endocrinology [address] [place] [address] Kylee Dalal, JEANNIE.CONDENSER TESTER [address] [place] [address] 6 months (around 02/29/2024 Endocrinology Comment on above: 6 months (around 02/29/2024 Start: 02-08-2024 Influenza vaccination [facility] Start: 01-07-2024 Hemoglobin A1c measurement HbA1C [facility] Start: 12-24-2023 End: 12-25-2023 Amylase [Enzymatic activity/volume] in Serum or Plasma AMYLASE BLD Lab Routine Chronic myeloid leukemia (HCC) Expected: 12/24/2023, Expires: 12/25/2023 [facility] Work Phone: Comment on above: Expected: 12/24/2023, Expires: Start: 12-24-2023 End: 12-25-2023 aPTT in Platelet poor plasma by Coagulation assay ACTIVATED PTT Lab Routine Chronic myeloid leukemia (HCC) Expected: 12/24/2023, Expires: 12/25/2023 [facility] Work Phone: Comment on above: Expected: 12/24/2023, Expires: Start: 12-24-2023 End: 12-25-2023 BCR/ABL1 P210 QUANTITATIVE PCR BLOOD BCR/ABL1 P210 QUANTITATIVE PCR BLOOD Lab Routine Chronic myeloid leukemia (HCC) Expected: 12/24/2023, Expires: 12/25/2023 [facility] Work Phone: Comment on above: Expected: 12/24/2023, Expires: Start: 12-24-2023 End: 12-25-2023 Bilirubin.conjugated [Mass/volume] in Serum or Plasma BILIRUBIN DIRECT BLD Lab Routine Chronic myeloid leukemia (HCC) Expected: 12/24/2023, Expires: 12/25/2023 [facility] Work Phone: Comment on above: Expected: 12/24/2023, Expires: Start: 12-24-2023 End: 12-25-2023 CBC W Auto Differential panel - Blood CBC + DIFF Lab Routine Chronic myeloid leukemia (HCC) Expected: 12/24/2023, Expires: 12/25/2023 [facility] Work Phone: Comment on above: Expected: 12/24/2023, Expires: Start: 12-24-2023 End: 12-25-2023 Cholesterol [Mass/volume] in Serum or Plasma CHOLESTEROL BLD Lab Routine Chronic myeloid leukemia (HCC) Expected: 12/24/2023, Expires: 12/25/2023 [facility] Work Phone: Comment on above: Expected: 12/24/2023, Expires: Start: 12-24-2023 End: 12-25-2023 Comprehensive metabolic 2000 panel - Serum or Plasma COMP METABOLIC PANEL Lab Routine Chronic myeloid leukemia (HCC) Expected: 12/24/2023, Expires: 12/25/2023 [facility] Work Phone: Comment on above: Expected: 12/24/2023, Expires: Start: 12-24-2023 End: 12-25-2023 Creatine kinase [Enzymatic activity/volume] in Serum or Plasma CK CREATINE KINASE Lab Routine Chronic myeloid leukemia (HCC) Expected: 12/24/2023, Expires: 12/25/2023 [facility] Work Phone: Comment on above: Expected: 12/24/2023, Expires: Start: 12-24-2023 End: 12-25-2023 ECG COMPLETE ECG COMPLETE ECG Routine Chronic myeloid leukemia (HCC) Expected: 12/24/2023, Expires: 12/25/2023 [facility] Work Phone: Comment on above: Expected: 12/24/2023, Expires: Start: 12-24-2023 End: 12-25-2023 Echocardiography ECHO Cardiology Routine Chronic myeloid leukemia (HCC) Expected: 12/24/2023, Expires: 12/25/2023 [facility] Work Phone: Comment on above: Expected: 12/24/2023, Expires: Start: 12-24-2023 End: 12-25-2023 Hemoglobin A1c in Blood HGB A1C Lab Routine Chronic myeloid leukemia (HCC) Expected: 12/24/2023, Expires: 12/25/2023 [facility] Work Phone: Comment on above: Expected: 12/24/2023, Expires: Start: 12-24-2023 End: 12-25-2023 HIGH SENSITIVITY TROPONIN T HIGH SENSITIVITY TROPONIN T Lab Routine Chronic myeloid leukemia (HCC) Expected: 12/24/2023, Expires: 12/25/2023 [facility] Work Phone: Comment on above: Expected: 12/24/2023, Expires: Start: 12-24-2023 End: 12-25-2023 Lipase [Enzymatic activity/volume] in Serum or Plasma LIPASE BLD Lab Routine Chronic myeloid leukemia (HCC) Expected: 12/24/2023, Expires: 12/25/2023 [facility] Work Phone: Comment on above: Expected: 12/24/2023, Expires: Start: 12-24-2023 End: 12-25-2023 Magnesium [Mass/volume] in Serum or Plasma MAGNESIUM BLD Lab Routine Chronic myeloid leukemia (HCC) Expected: 12/24/2023, Expires: 12/25/2023 [facility] Work Phone: Comment on above: Expected: 12/24/2023, Expires: Start: 12-24-2023 End: 12-25-2023 MISC SEND OUT TST 1 MISC SEND OUT TST 1 Lab Routine Chronic myeloid leukemia (HCC) Expected: 12/24/2023, Expires: 12/25/2023 [facility] Work Phone: Comment on above: Expected: 12/24/2023, Expires: 4 Start: 12-24-2023 End: 12-25-2023 Phosphate [Mass/volume] in Serum or Plasma PHOSPHORUS INORGANIC Lab Routine Chronic myeloid leukemia (HCC) Expected: 12/24/2023, Expires: 12/25/2023 [facility] Work Phone: Comment on above: Expected: 12/24/2023, Expires: Start: 12-24-2023 End: 12-25-2023 PT panel - Platelet poor plasma by Coagulation assay PROTHROMBIN TIME/PT Lab Routine Chronic myeloid leukemia (HCC) Expected: 12/24/2023, Expires: 12/25/2023 [facility] Work Phone: Comment on above: Expected: 12/24/2023, Expires: Start: 12-24-2023 End: 12-25-2023 Triglyceride [Mass/volume] in Serum or Plasma TRIGLYCERIDES BLD Lab Routine Chronic myeloid leukemia (HCC) Expected: 12/24/2023, Expires: 12/25/2023 [facility] Work Phone: Comment on above: Expected: 12/24/2023, Expires: Start: 12-24-2023 End: 12-25-2023 Urate [Mass/volume] in Serum or Plasma URIC ACID BLOOD Lab Routine Chronic myeloid leukemia (HCC) Expected: 12/24/2023, Expires: 12/25/2023 [facility] Work Phone: Comment on above: Expected: 12/24/2023, Expires: Start: 12-24-2023 End: 12-25-2023 URINALYSIS, DIPSTICK ONLY URINALYSIS, DIPSTICK ONLY Lab Routine Chronic myeloid leukemia (HCC) Expected: 12/24/2023, Expires: 12/25/2023 [facility] Work Phone: Comment on above: Expected: 12/24/2023, Expires: Start: 12-24-2023 End: 12-24-2023 Patient encounter procedure 12/24/2023 10:40 AM EDT Office Visit Vascular Medicine [address] [place] [address] STUDY PT Vascular Medicine Comment on above: STUDY PT Start: 12-24-2023 End: 12-24-2023 Nursing evaluation of patient and report 12/24/2023 9:30 AM EDT Nurse Visit Hematology/Oncology [address] [place] [address] Emma Tuttle, RN [address] [place] [address] STUDY PT Hematology/Oncology Comment on above: STUDY PT Start: 12-24-2023 End: 12-24-2023 ambulatory [facility] [address] Comment on above: STUDY PT Start: 12-09-2023 [facility] Start: 10-09-2023 End: 01-08-2024 MISC SEND OUT TST 1 MISC SEND OUT TST 1 Lab Routine CML (chronic myeloid leukemia) (HCC) Expected: 10/09/2023, Expires: 01/08/2024 [facility] Work Phone: Comment on above: Expected: 10/09/2023, Expires: Start: 10-03-2023 End: 10-03-2023 Admission to same day surgery center 10/03/2023 8:00 AM EDT - 10/03/2023 9:09 AM EDT Surgery [facility] [address] [place] [address] Rafael Hahn MD [address], [address] [id number] DIAGNOSTIC BONE MARROW BIOPSY(IES) Angio Comment on above: DIAGNOSTIC BONE MARROW BIOPSY(IES) Start: 10-03-2023 End: 10-03-2023 Diagnostic bone marrow biopsies DIAGNOSTIC BONE MARROW BIOPSY(IES) CML (chronic myeloid leukemia) (HCC) 10/03/2023 8:00 AM EDT [facility] HB6 Start: 10-03-2023 Subsequent hospital visit by physician 10/03/2023 8:00 AM EDT Hospital Encounter [facility] [address] [place] [address] Rafael Hahn MD [address], [address] [address] 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] Angio Comment on above: CML (chronic myeloid leukemia) (HCC) [C9 2.10] Start: 09-11-2023 End: 09-11-2023 Patient encounter procedure 09/11/2023 4:30 PM EDT Office Visit [facility] [address] [place] [id number] Nichole Desir MD [address] [place] [address] [facility] Start: 07-18-2023 Hemoglobin A1c measurement HbA1C [facility] Start: 07-18-2023 Hemoglobin A1c/Hemoglobin.total in Blood HbA1C [facility] Start: 06-09-2023 Behavioral Health Screening Behavioral Health Screening [facility] Start: 06-09-2023 Depression Assessment Depression Assessment [facility] Start: 04-24-2023 Hemoglobin A1c/Hemoglobin.total in Blood HBA1C [facility] Start: 04-18-2023 End: 07-18-2023 BCR/ABL1 P190 QUANTITATIVE PCR BONE MARROW BCR/ABL1 P190 QUANTITATIVE PCR BONE MARROW Lab Routine CML (chronic myeloid leukemia) ([facility]) Expected: 04/18/2023, Expires: 07/18/2023 [facility] Work Phone: Comment on above: Expected: 04/18/2023, Expires: 4 Start: 04-18-2023 End: 07-18-2023 Comprehensive metabolic 2000 panel - Serum or Plasma [facility] Work Phone: Comment on above: Expected: 04/18/2023, Expires: 4 Start: 04-16-2023 End: 04-17-2023 Amylase [Enzymatic activity/volume] in Serum or Plasma AMYLASE BLD Lab Routine Chronic myeloid leukemia (HCC) Expected: 04/16/2023, Expires: 04/17/2023 [facility] Work Phone: Comment on above: Expected: 04/16/2023, Expires: 3 Start: 04-16-2023 End: 04-17-2023 aPTT in Platelet poor plasma by Coagulation assay ACTIVATED PTT Lab Routine Chronic myeloid leukemia (HCC) Expected: 04/16/2023, Expires: 04/17/2023 [facility] Work Phone: Comment on above: Expected: 04/16/2023, Expires: 3 Start: 04-16-2023 End: 04-17-2023 BCR/ABL1 P190 QUANTITATIVE PCR BONE MARROW BCR/ABL1 P190 QUANTITATIVE PCR BONE MARROW Lab Routine Chronic myeloid leukemia (HCC) Expected: 04/16/2023, Expires: 04/17/2023 [facility] Work Phone: Comment on above: Expected: 04/16/2023, Expires: Start: 04-16-2023 End: 04-17-2023 BCR/ABL1 P210 QUANTITATIVE PCR BLOOD BCR/ABL1 P210 QUANTITATIVE PCR BLOOD Lab Routine Chronic myeloid leukemia (HCC) Expected: 04/16/2023, Expires: 04/17/2023 [facility] Work Phone: Comment on above: Expected: 04/16/2023, Expires: 3 Start: 04-16-2023 End: 04-17-2023 Bilirubin.conjugated [Mass/volume] in Serum or Plasma BILIRUBIN DIRECT BLD Lab Routine Chronic myeloid leukemia (HCC) Expected: 04/16/2023, Expires: 04/17/2023 [facility] Work Phone: Comment on above: Expected: 04/16/2023, Expires: Start: 04-16-2023 End: 04-17-2023 CBC W Auto Differential panel - Blood CBC + DIFF Lab Routine Chronic myeloid leukemia (HCC) Expected: 04/16/2023, Expires: 04/17/2023 [facility] Work Phone: Comment on above: Expected: 04/16/2023, Expires: Start: 04-16-2023 End: 04-17-2023 Cholesterol [Mass/volume] in Serum or Plasma CHOLESTEROL BLD Lab Routine Chronic myeloid leukemia (HCC) Expected: 04/16/2023, Expires: 04/17/2023 [facility] Work Phone: Comment on above: Expected: 04/16/2023, Expires: Start: 04-16-2023 End: 04-17-2023 CLINICAL TRIAL DRAW CLINICAL TRIAL DRAW Lab Routine Chronic myeloid leukemia (HCC) Expected: 04/16/2023, Expires: 04/17/2023 [facility] Work Phone: Comment on above: Expected: 04/16/2023, Expires: Start: 04-16-2023 End: 04-17-2023 Comprehensive metabolic 2000 panel - Serum or Plasma COMP METABOLIC PANEL Lab Routine Chronic myeloid leukemia (HCC) Expected: 04/16/2023, Expires: 04/17/2023 [facility] Work Phone: Comment on above: Expected: 04/16/2023, Expires: 3 Start: 04-16-2023 End: 04-17-2023 Creatine kinase [Enzymatic activity/volume] in Serum or Plasma CK CREATINE KINASE Lab Routine Chronic myeloid leukemia (HCC) Expected: 04/16/2023, Expires: 04/17/2023 [facility] Work Phone: Comment on above: Expected: 04/16/2023, Expires: 3 Start: 04-16-2023 End: 04-17-2023 ECG COMPLETE ECG COMPLETE ECG Routine Chronic myeloid leukemia (HCC) Expected: 04/16/2023, Expires: 04/17/2023 [facility] Work Phone: Comment on above: Expected: 04/16/2023, Expires: 3 Start: 04-16-2023 End: 04-17-2023 HIGH SENSITIVITY TROPONIN T HIGH SENSITIVITY TROPONIN T Lab Routine Chronic myeloid leukemia (HCC) Expected: 04/16/2023, Expires: 04/17/2023 [facility] Work Phone: Comment on above: Expected: 04/16/2023, Expires: 3 Start: 04-16-2023 End: 04-17-2023 Lipase [Enzymatic activity/volume] in Serum or Plasma LIPASE BLD Lab Routine Chronic myeloid leukemia (HCC) Expected: 04/16/2023, Expires: 04/17/2023 [facility] Work Phone: Comment on above: Expected: 04/16/2023, Expires: 3 Start: 04-16-2023 End: 04-17-2023 Magnesium [Mass/volume] in Serum or Plasma MAGNESIUM BLD Lab Routine Chronic myeloid leukemia (HCC) Expected: 04/16/2023, Expires: 04/17/2023 [facility] Work Phone: Comment on above: Expected: 04/16/2023, Expires: 3 Start: 04-16-2023 End: 04-17-2023 Phosphate [Mass/volume] in Serum or Plasma PHOSPHORUS INORGANIC Lab Routine Chronic myeloid leukemia (HCC) Expected: 04/16/2023, Expires: 04/17/2023 [facility] Work Phone: Comment on above: Expected: 04/16/2023, Expires: 3 Start: 04-16-2023 End: 04-17-2023 PT panel - Platelet poor plasma by Coagulation assay PROTHROMBIN TIME/PT Lab Routine Chronic myeloid leukemia (HCC) Expected: 04/16/2023, Expires: 04/17/2023 [facility] Work Phone: Comment on above: Expected: 04/16/2023, Expires: Start: 04-16-2023 End: 04-17-2023 Triglyceride [Mass/volume] in Serum or Plasma TRIGLYCERIDES BLD Lab Routine Chronic myeloid leukemia (HCC) Expected: 04/16/2023, Expires: 04/17/2023 [facility] Work Phone: Comment on above: Expected: 04/16/2023, Expires: 3 Start: 04-16-2023 End: 04-17-2023 Urate [Mass/volume] in Serum or Plasma URIC ACID BLOOD Lab Routine Chronic myeloid leukemia (HCC) Expected: 04/16/2023, Expires: 04/17/2023 [facility] Work Phone: Comment on above: Expected: 04/16/2023, Expires: 3 Start: 04-16-2023 End: 04-17-2023 URINALYSIS, DIPSTICK ONLY URINALYSIS, DIPSTICK ONLY Lab Routine Chronic myeloid leukemia (HCC) Expected: 04/16/2023, Expires: 04/17/2023 [facility] Work Phone: Comment on above: Expected: 04/16/2023, Expires: 3 Start: 03-22-2023 Hepatitis B screening URINE ALBUMIN:CREATININE RATIO [facility] Start: 03-22-2023 Hepatitis B surface antibody level LDL CHOLESTEROL [facility] Start: 02-07-2023 Influenza vaccination [facility] Start: 01-22-2023 End: 01-23-2023 Amylase [Enzymatic activity/volume] in Serum or Plasma AMYLASE BLD Lab Routine CML (chronic myeloid leukemia) (HCC) Expected: 01/22/2023, Expires: 01/23/2023 [facility] Work Phone: Comment on above: Expected: 01/22/2023, Expires: 3 Start: 01-22-2023 End: 01-23-2023 aPTT in Platelet poor plasma by Coagulation assay ACTIVATED PTT Lab Routine CML (chronic myeloid leukemia) (HCC) Expected: 01/22/2023, Expires: 01/23/2023 [facility] Work Phone: Comment on above: Expected: 01/22/2023, Expires: 3 Start: 01-22-2023 End: 01-23-2023 BCR/ABL1 P190 QUANTITATIVE PCR BLOOD BCR/ABL1 P190 QUANTITATIVE PCR BLOOD Lab Routine CML (chronic myeloid leukemia) (HCC) Expected: 01/22/2023, Expires: 01/23/2023 [facility] Work Phone: Comment on above: Expected: 01/22/2023, Expires: 3 Start: 01-22-2023 End: 01-23-2023 BCR/ABL1 P210 QUANTITATIVE PCR BLOOD BCR/ABL1 P210 QUANTITATIVE PCR BLOOD Lab Routine CML (chronic myeloid leukemia) (HCC) Expected: 01/22/2023, Expires: 01/23/2023 [facility] Work Phone: Comment on above: Expected: 01/22/2023, Expires: 3 Start: 01-22-2023 End: 01-23-2023 Bilirubin.conjugated [Mass/volume] in Serum or Plasma BILIRUBIN DIRECT BLD Lab Routine CML (chronic myeloid leukemia) (HCC) Expected: 01/22/2023, Expires: 01/23/2023 [facility] Work Phone: Comment on above: Expected: 01/22/2023, Expires: 3 Start: 01-22-2023 End: 01-23-2023 CBC W Auto Differential panel - Blood CBC + DIFF Lab Routine CML (chronic myeloid leukemia) ([facility]) Expected: 01/22/2023, Expires: 01/23/2023 [facility] Work Phone: Comment on above: Expected: 01/22/2023, Expires: 3 Start: 01-22-2023 End: 01-23-2023 Cholesterol [Mass/volume] in Serum or Plasma CHOLESTEROL BLD Lab Routine CML (chronic myeloid leukemia) ([facility]) Expected: 01/22/2023, Expires: 01/23/2023 [facility] Work Phone: Comment on above: Expected: 01/22/2023, Expires: 3 Start: 01-22-2023 End: 01-23-2023 CK TOTAL AND CK-MB CK TOTAL AND CK-MB Lab Routine CML (chronic myeloid leukemia) ([facility]) Expected: 01/22/2023, Expires: 01/23/2023 [facility] Work Phone: Comment on above: Expected: 01/22/2023, Expires: 3 Start: 01-22-2023 End: 01-23-2023 CLINICAL TRIAL DRAW CLINICAL TRIAL DRAW Lab Routine CML (chronic myeloid leukemia) ([facility]) Expected: 01/22/2023, Expires: 01/23/2023 [facility] Work Phone: Comment on above: Expected: 01/22/2023, Expires: 3 Start: 01-22-2023 End: 01-23-2023 Comprehensive metabolic 2000 panel - Serum or Plasma COMP METABOLIC PANEL Lab Routine CML (chronic myeloid leukemia) ([facility]) Expected: 01/22/2023, Expires: 01/23/2023 [facility] Work Phone: Comment on above: Expected: 01/22/2023, Expires: Start: 01-22-2023 End: 01-23-2023 Hemoglobin A1c in Blood HGB A1C Lab Routine CML (chronic myeloid leukemia) ([facility]) Expected: 01/22/2023, Expires: 01/23/2023 [facility] Work Phone: Comment on above: Expected: 01/22/2023, Expires: Start: 01-22-2023 End: 01-23-2023 HIGH SENSITIVITY TROPONIN T HIGH SENSITIVITY TROPONIN T Lab Routine CML (chronic myeloid leukemia) ([facility]) Expected: 01/22/2023, Expires: 01/23/2023 [facility] Work Phone: Comment on above: Expected: 01/22/2023, Expires: Start: 01-22-2023 End: 01-23-2023 Lipase [Enzymatic activity/volume] in Serum or Plasma LIPASE BLD Lab Routine CML (chronic myeloid leukemia) ([facility]) Expected: 01/22/2023, Expires: 01/23/2023 [facility] Work Phone: Comment on above: Expected: 01/22/2023, Expires: 3 Start: 01-22-2023 End: 01-23-2023 Magnesium [Mass/volume] in Serum or Plasma MAGNESIUM BLD Lab Routine CML (chronic myeloid leukemia) ([facility]) Expected: 01/22/2023, Expires: 01/23/2023 [facility] Work Phone: Comment on above: Expected: 01/22/2023, Expires: 3 Start: 01-22-2023 End: 01-23-2023 Phosphate [Mass/volume] in Serum or Plasma PHOSPHORUS INORGANIC Lab Routine CML (chronic myeloid leukemia) ([facility]) Expected: 01/22/2023, Expires: 01/23/2023 [facility] Work Phone: Comment on above: Expected: 01/22/2023, Expires: 3 Start: 01-22-2023 End: 01-23-2023 PT panel - Platelet poor plasma by Coagulation assay PROTHROMBIN TIME/PT Lab Routine CML (chronic myeloid leukemia) ([facility]) Expected: 01/22/2023, Expires: 01/23/2023 [facility] Work Phone: Comment on above: Expected: 01/22/2023, Expires: 3 Start: 01-22-2023 End: 01-23-2023 Triglyceride [Mass/volume] in Serum or Plasma TRIGLYCERIDES BLD Lab Routine CML (chronic myeloid leukemia) ([facility]) Expected: 01/22/2023, Expires: 01/23/2023 [facility] Work Phone: Comment on above: Expected: 01/22/2023, Expires: Start: 01-22-2023 End: 01-23-2023 Urate [Mass/volume] in Serum or Plasma URIC ACID BLOOD Lab Routine CML (chronic myeloid leukemia) ([facility]) Expected: 01/22/2023, Expires: 01/23/2023 [facility] Work Phone: Comment on above: Expected: 01/22/2023, Expires: 3 Start: 01-22-2023 End: 01-23-2023 URINALYSIS, DIPSTICK ONLY URINALYSIS, DIPSTICK ONLY Lab Routine CML (chronic myeloid leukemia) ([facility]) Expected: 01/22/2023, Expires: 01/23/2023 [facility] Work Phone: Comment on above: Expected: 01/22/2023, Expires: 3 Start: 01-15-2023 Hemoglobin A1c/Hemoglobin.total in Blood HBA1C [facility] Start: 10-28-2022 End: 10-29-2022 Amylase [Enzymatic activity/volume] in Serum or Plasma AMYLASE BLD Lab STAT Chronic myeloid leukemia (HCC) Expected: 10/28/2022, Expires: 10/29/2022 [facility] Work Phone: Comment on above: Expected: 10/28/2022, Expires: 3 Start: 10-28-2022 End: 10-29-2022 aPTT in Platelet poor plasma by Coagulation assay ACTIVATED PTT Lab STAT Chronic myeloid leukemia (HCC) Expected: 10/28/2022, Expires: 10/29/2022 [facility] Work Phone: Comment on above: Expected: 10/28/2022, Expires: Start: 10-28-2022 End: 10-29-2022 Bilirubin.conjugated [Mass/volume] in Serum or Plasma BILIRUBIN DIRECT BLD Lab STAT Chronic myeloid leukemia (HCC) Expected: 10/28/2022, Expires: 10/29/2022 [facility] Work Phone: Comment on above: Expected: 10/28/2022, Expires: Start: 10-28-2022 End: 10-29-2022 C reactive protein [Mass/volume] in Serum or Plasma C-REACTIVE PROTEIN (CRP) Lab STAT Chronic myeloid leukemia (HCC) Expected: 10/28/2022, Expires: 10/29/2022 [facility] Work Phone: Comment on above: Expected: 10/28/2022, Expires: 3 Start: 10-28-2022 End: 10-29-2022 CBC W Auto Differential panel - Blood CBC + DIFF Lab STAT Chronic myeloid leukemia (HCC) Expected: 10/28/2022, Expires: 10/29/2022 [facility] Work Phone: Comment on above: Expected: 10/28/2022, Expires: Start: 10-28-2022 End: 10-29-2022 Cholesterol [Mass/volume] in Serum or Plasma CHOLESTEROL BLD Lab STAT Chronic myeloid leukemia (HCC) Expected: 10/28/2022, Expires: 10/29/2022 [facility] Work Phone: Comment on above: Expected: 10/28/2022, Expires: Start: 10-28-2022 End: 10-29-2022 CLINICAL TRIAL DRAW CLINICAL TRIAL DRAW Lab STAT Chronic myeloid leukemia (HCC) Expected: 10/28/2022, Expires: 10/29/2022 [facility] Work Phone: Comment on above: Expected: 10/28/2022, Expires: 3 Start: 10-28-2022 End: 10-29-2022 Comprehensive metabolic 2000 panel - Serum or Plasma COMP METABOLIC PANEL Lab STAT Chronic myeloid leukemia (HCC) Expected: 10/28/2022, Expires: 10/29/2022 [facility] Work Phone: Comment on above: Expected: 10/28/2022, Expires: 3 Start: 10-28-2022 End: 10-29-2022 Lipase [Enzymatic activity/volume] in Serum or Plasma LIPASE BLD Lab STAT Chronic myeloid leukemia (HCC) Expected: 10/28/2022, Expires: 10/29/2022 [facility] Work Phone: Comment on above: Expected: 10/28/2022, Expires: 3 Start: 10-28-2022 End: 10-29-2022 Magnesium [Mass/volume] in Serum or Plasma MAGNESIUM BLD Lab STAT Chronic myeloid leukemia (HCC) Expected: 10/28/2022, Expires: 10/29/2022 [facility] Work Phone: Comment on above: Expected: 10/28/2022, Expires: 3 Start: 10-28-2022 End: 10-29-2022 Phosphate [Mass/volume] in Serum or Plasma PHOSPHORUS INORGANIC Lab STAT Chronic myeloid leukemia (HCC) Expected: 10/28/2022, Expires: 10/29/2022 [facility] Work Phone: Comment on above: Expected: 10/28/2022, Expires: 3 Start: 10-28-2022 End: 10-29-2022 PT panel - Platelet poor plasma by Coagulation assay PROTHROMBIN TIME/PT Lab STAT Chronic myeloid leukemia (HCC) Expected: 10/28/2022, Expires: 10/29/2022 [facility] Work Phone: Comment on above: Expected: 10/28/2022, Expires: 3 Start: 10-28-2022 End: 10-29-2022 Triglyceride [Mass/volume] in Serum or Plasma TRIGLYCERIDES BLD Lab STAT Chronic myeloid leukemia (HCC) Expected: 10/28/2022, Expires: 10/29/2022 [facility] Work Phone: Comment on above: Expected: 10/28/2022, Expires: Start: 10-28-2022 End: 10-29-2022 Troponin I.cardiac [Mass/volume] in Serum or Plasma TROPONIN (POCT) Lab STAT Chronic myeloid leukemia (HCC) Expected: 10/28/2022, Expires: 10/29/2022 [facility] Work Phone: Comment on above: Expected: 10/28/2022, Expires: Start: 10-28-2022 End: 10-29-2022 Urate [Mass/volume] in Serum or Plasma URIC ACID BLOOD Lab STAT Chronic myeloid leukemia (HCC) Expected: 10/28/2022, Expires: 10/29/2022 [facility] Work Phone: Comment on above: Expected: 10/28/2022, Expires: Start: 10-28-2022 End: 10-29-2022 URINALYSIS, DIPSTICK ONLY URINALYSIS, DIPSTICK ONLY Lab STAT Chronic myeloid leukemia (HCC) Expected: 10/28/2022, Expires: 10/29/2022 [facility] Work Phone: Comment on above: Expected: 10/28/2022, Expires: 3 Start: 10-12-2022 Hemoglobin A1c/Hemoglobin.total in Blood HBA1C [facility] Start: 08-05-2022 End: 08-06-2022 Amylase [Enzymatic activity/volume] in Serum or Plasma AMYLASE BLD Lab STAT Chronic myeloid leukemia (HCC) Expected: 08/05/2022, Expires: 08/06/2022 [facility] Work Phone: Comment on above: Expected: 08/05/2022, Expires: 3 Start: 08-05-2022 End: 08-06-2022 aPTT in Platelet poor plasma by Coagulation assay ACTIVATED PTT Lab STAT Chronic myeloid leukemia (HCC) Expected: 08/05/2022, Expires: 08/06/2022 [facility] Work Phone: Comment on above: Expected: 08/05/2022, Expires: 3 Start: 08-05-2022 End: 10-05-2022 BCR/ABL1 P210 QUANTITATIVE PCR BLOOD BCR/ABL1 P210 QUANTITATIVE PCR BLOOD Lab Routine CML (chronic myeloid leukemia) (HCC) Expected: 08/05/2022, Expires: 10/05/2022 [facility] Work Phone: Comment on above: Expected: 08/05/2022, Expires: Start: 08-05-2022 End: 08-06-2022 Bilirubin.conjugated [Mass/volume] in Serum or Plasma BILIRUBIN DIRECT BLD Lab STAT Chronic myeloid leukemia (HCC) Expected: 08/05/2022, Expires: 08/06/2022 [facility] Work Phone: Comment on above: Expected: 08/05/2022, Expires: Start: 08-05-2022 End: 08-06-2022 C reactive protein [Mass/volume] in Serum or Plasma C-REACTIVE PROTEIN (CRP) Lab STAT Chronic myeloid leukemia (HCC) Expected: 08/05/2022, Expires: 08/06/2022 [facility] Work Phone: Comment on above: Expected: 08/05/2022, Expires: 3 Start: 08-05-2022 End: 08-06-2022 CBC W Auto Differential panel - Blood CBC + DIFF Lab STAT Chronic myeloid leukemia (HCC) Expected: 08/05/2022, Expires: 08/06/2022 [facility] Work Phone: Comment on above: Expected: 08/05/2022, Expires: 3 Start: 08-05-2022 End: 08-06-2022 Cholesterol [Mass/volume] in Serum or Plasma CHOLESTEROL BLD Lab STAT Chronic myeloid leukemia (HCC) Expected: 08/05/2022, Expires: 08/06/2022 [facility] Work Phone: Comment on above: Expected: 08/05/2022, Expires: 3 Start: 08-05-2022 End: 08-06-2022 CLINICAL TRIAL DRAW CLINICAL TRIAL DRAW Lab STAT Chronic myeloid leukemia (HCC) Expected: 08/05/2022, Expires: 08/06/2022 [facility] Work Phone: Comment on above: Expected: 08/05/2022, Expires: 3 Start: 08-05-2022 End: 08-06-2022 Comprehensive metabolic 2000 panel - Serum or Plasma COMP METABOLIC PANEL Lab STAT Chronic myeloid leukemia (HCC) Expected: 08/05/2022, Expires: 08/06/2022 [facility] Work Phone: Comment on above: Expected: 08/05/2022, Expires: 3 Start: 08-05-2022 End: 10-05-2022 HIGH SENSITIVITY TROPONIN T HIGH SENSITIVITY TROPONIN T Lab Routine CML (chronic myeloid leukemia) (HCC) Expected: 08/05/2022, Expires: 10/05/2022 [facility] Work Phone: Comment on above: Expected: 08/05/2022, Expires: 3 Start: 08-05-2022 End: 08-06-2022 Lipase [Enzymatic activity/volume] in Serum or Plasma LIPASE BLD Lab STAT Chronic myeloid leukemia (HCC) Expected: 08/05/2022, Expires: 08/06/2022 [facility] Work Phone: Comment on above: Expected: 08/05/2022, Expires: 3 Start: 08-05-2022 End: 08-06-2022 Magnesium [Mass/volume] in Serum or Plasma MAGNESIUM BLD Lab STAT Chronic myeloid leukemia (HCC) Expected: 08/05/2022, Expires: 08/06/2022 [facility] Work Phone: Comment on above: Expected: 08/05/2022, Expires: 3 Start: 08-05-2022 End: 08-06-2022 Phosphate [Mass/volume] in Serum or Plasma PHOSPHORUS INORGANIC Lab STAT Chronic myeloid leukemia (HCC) Expected: 08/05/2022, Expires: 08/06/2022 [facility] Work Phone: Comment on above: Expected: 08/05/2022, Expires: 3 Start: 08-05-2022 End: 08-06-2022 PT panel - Platelet poor plasma by Coagulation assay PROTHROMBIN TIME/PT Lab STAT Chronic myeloid leukemia (HCC) Expected: 08/05/2022, Expires: 08/06/2022 [facility] Work Phone: Comment on above: Expected: 08/05/2022, Expires: 3 Start: 08-05-2022 End: 08-06-2022 Triglyceride [Mass/volume] in Serum or Plasma TRIGLYCERIDES BLD Lab STAT Chronic myeloid leukemia (HCC) Expected: 08/05/2022, Expires: 08/06/2022 [facility] Work Phone: Comment on above: Expected: 08/05/2022, Expires: 3 Start: 08-05-2022 End: 08-06-2022 Troponin I.cardiac [Mass/volume] in Serum or Plasma TROPONIN (POCT) Lab STAT Chronic myeloid leukemia (HCC) Expected: 08/05/2022, Expires: 08/06/2022 [facility] Work Phone: Comment on above: Expected: 08/05/2022, Expires: 3 Start: 08-05-2022 End: 08-06-2022 Urate [Mass/volume] in Serum or Plasma URIC ACID BLOOD Lab STAT Chronic myeloid leukemia (HCC) Expected: 08/05/2022, Expires: 08/06/2022 [facility] Work Phone: Comment on above: Expected: 08/05/2022, Expires: 3 Start: 08-05-2022 End: 08-06-2022 URINALYSIS, DIPSTICK ONLY URINALYSIS, DIPSTICK ONLY Lab STAT Chronic myeloid leukemia (HCC) Expected: 08/05/2022, Expires: 08/06/2022 [facility] Work Phone: Comment on above: Expected: 08/05/2022, Expires: 3 Start: 06-11-2022 Adult depression screening assessment DEPRESSION SCREENING [facility] Start: 06-09-2022 DEPRESSION ASSESSMENT DEPRESSION ASSESSMENT [facility] Start: 03-19-2022 End: 05-19-2022 ALBUMIN/CREAT RATIO RND UR ALBUMIN/CREAT RATIO RND UR Lab Routine Uncontrolled type 2 diabetes mellitus with hyperglycemia (HCC) Expected: 03/19/2022, Expires: 05/19/2022 [facility] Work Phone: Comment on above: Expected: 03/19/2022, Expires: 2 Start: 03-19-2022 End: 05-19-2022 C peptide [Mass/volume] in Serum or Plasma C-PEPTIDE BLD Lab Routine Uncontrolled type 2 diabetes mellitus with hyperglycemia (HCC) Expected: 03/19/2022, Expires: 05/19/2022 [facility] Work Phone: Comment on above: Expected: 03/19/2022, Expires: 2 Start: 03-19-2022 End: 05-19-2022 Cholesterol in LDL [Mass/volume] in Serum or Plasma LDL CHOLESTEROL DIR Lab Routine Uncontrolled type 2 diabetes mellitus with hyperglycemia (HCC) Expected: 03/19/2022, Expires: 05/19/2022 [facility] Work Phone: Comment on above: Expected: 03/19/2022, Expires: 2 Start: 03-19-2022 End: 05-19-2022 Fasting glucose [Mass/volume] in Serum or Plasma GLUCOSE FASTING BLD Lab Routine Uncontrolled type 2 diabetes mellitus with hyperglycemia (HCC) Expected: 03/19/2022, Expires: 05/19/2022 [facility] Work Phone: Comment on above: Expected: 03/19/2022, Expires: 2 Start: 03-19-2022 End: 05-19-2022 Lipid 1996 panel - Serum or Plasma LIPID PANEL BASIC Lab Routine Uncontrolled type 2 diabetes mellitus with hyperglycemia ([facility]) Expected: 03/19/2022, Expires: 05/19/2022 [facility] Work Phone: Comment on above: Expected: 03/19/2022, Expires: 2 Start: 02-18-2022 End: 02-19-2022 Amylase [Enzymatic activity/volume] in Serum or Plasma AMYLASE BLD Lab STAT CML (chronic myeloid leukemia) ([facility]) Expected: 02/18/2022, Expires: 02/19/2022 [facility] Work Phone: Comment on above: Expected: 02/18/2022, Expires: 2 Start: 02-18-2022 End: 02-19-2022 aPTT in Platelet poor plasma by Coagulation assay ACTIVATED PTT Lab STAT CML (chronic myeloid leukemia) (HCC) Expected: 02/18/2022, Expires: 02/19/2022 [facility] Work Phone: Comment on above: Expected: 02/18/2022, Expires: 2 Start: 02-18-2022 End: 02-19-2022 Bilirubin.conjugated [Mass/volume] in Serum or Plasma BILIRUBIN DIRECT BLD Lab STAT CML (chronic myeloid leukemia) (HCC) Expected: 02/18/2022, Expires: 02/19/2022 [facility] Work Phone: Comment on above: Expected: 02/18/2022, Expires: 2 Start: 02-18-2022 End: 02-19-2022 CBC W Auto Differential panel - Blood CBC + DIFF Lab STAT CML (chronic myeloid leukemia) (HCC) Expected: 02/18/2022, Expires: 02/19/2022 [facility] Work Phone: Comment on above: Expected: 02/18/2022, Expires: 2 Start: 02-18-2022 End: 09-13-2022 Cholesterol [Mass/volume] in Serum or Plasma CHOLESTEROL BLD Lab STAT CML (chronic myeloid leukemia) ([facility]) Expected: 02/18/2022, Expires: 02/19/2022 [facility] Work Phone: Comment on above: Expected: 02/18/2022, Expires: 2 Start: 02-18-2022 End: 02-19-2022 CLINICAL TRIAL DRAW CLINICAL TRIAL DRAW Lab STAT CML (chronic myeloid leukemia) ([facility]) Expected: 02/18/2022, Expires: 02/19/2022 [facility] Work Phone: Comment on above: Expected: 02/18/2022, Expires: 2 Start: 02-18-2022 End: 02-19-2022 Comprehensive metabolic 2000 panel - Serum or Plasma COMP METABOLIC PANEL Lab STAT CML (chronic myeloid leukemia) ([facility]) Expected: 02/18/2022, Expires: 02/19/2022 [facility] Work Phone: Comment on above: Expected: 02/18/2022, Expires: 2 Start: 02-18-2022 End: 02-19-2022 Creatine kinase [Enzymatic activity/volume] in Serum or Plasma CK CREATINE KINASE Lab STAT CML (chronic myeloid leukemia) ([facility]) Expected: 02/18/2022, Expires: 02/19/2022 [facility] Work Phone: Comment on above: Expected: 02/18/2022, Expires: 2 Start: 02-18-2022 End: 02-19-2022 HDL CHOLESTEROL BLD HDL CHOLESTEROL BLD Lab STAT CML (chronic myeloid leukemia) ([facility]) Expected: 02/18/2022, Expires: 02/19/2022 [facility] Work Phone: Comment on above: Expected: 02/18/2022, Expires: 2 Start: 02-18-2022 End: 02-19-2022 Lipase [Enzymatic activity/volume] in Serum or Plasma LIPASE BLD Lab STAT CML (chronic myeloid leukemia) ([facility]) Expected: 02/18/2022, Expires: 02/19/2022 [facility] Work Phone: Comment on above: Expected: 02/18/2022, Expires: 2 Start: 02-18-2022 End: 02-19-2022 Magnesium [Mass/volume] in Serum or Plasma MAGNESIUM BLD Lab STAT CML (chronic myeloid leukemia) (HCC) Expected: 02/18/2022, Expires: 02/19/2022 [facility] Work Phone: Comment on above: Expected: 02/18/2022, Expires: 2 Start: 02-18-2022 End: 02-19-2022 Phosphate [Mass/volume] in Serum or Plasma PHOSPHORUS INORGANIC Lab STAT CML (chronic myeloid leukemia) (HCC) Expected: 02/18/2022, Expires: 02/19/2022 [facility] Work Phone: Comment on above: Expected: 02/18/2022, Expires: 2 Start: 02-18-2022 End: 02-19-2022 PT panel - Platelet poor plasma by Coagulation assay PROTHROMBIN TIME/PT Lab STAT CML (chronic myeloid leukemia) (HCC) Expected: 02/18/2022, Expires: 02/19/2022 [facility] Work Phone: Comment on above: Expected: 02/18/2022, Expires: 2 Start: 02-18-2022 End: 02-19-2022 Triglyceride [Mass/volume] in Serum or Plasma TRIGLYCERIDES BLD Lab STAT CML (chronic myeloid leukemia) (HCC) Expected: 02/18/2022, Expires: 02/19/2022 [facility] Work Phone: Comment on above: Expected: 02/18/2022, Expires: 2 Start: 02-18-2022 End: 02-19-2022 TROPONIN T TROPONIN T Lab STAT CML (chronic myeloid leukemia) (HCC) Expected: 02/18/2022, Expires: 02/19/2022 [facility] Work Phone: Comment on above: Expected: 02/18/2022, Expires: 2 Start: 02-18-2022 End: 02-19-2022 Urate [Mass/volume] in Serum or Plasma URIC ACID BLOOD Lab STAT CML (chronic myeloid leukemia) (HCC) Expected: 02/18/2022, Expires: 02/19/2022 [facility] Work Phone: Comment on above: Expected: 02/18/2022, Expires: 2 Start: 02-18-2022 End: 02-19-2022 URINALYSIS, DIPSTICK ONLY URINALYSIS, DIPSTICK ONLY Lab STAT CML (chronic myeloid leukemia) (HCC) Expected: 02/18/2022, Expires: 02/19/2022 [facility] Work Phone: Comment on above: Expected: 02/18/2022, Expires: 2 Start: 02-15-2022 End: 04-17-2022 BCR/ABL1 P190 QUANTITATIVE PCR BLOOD BCR/ABL1 P190 QUANTITATIVE PCR BLOOD Lab Routine CML (chronic myeloid leukemia) (HCC) Expected: 02/15/2022, Expires: 04/17/2022 [facility] Work Phone: Comment on above: Expected: 02/15/2022, Expires: 2 Start: 02-15-2022 End: 04-17-2022 BCR/ABL1 P210 QUANTITATIVE PCR BLOOD BCR/ABL1 P210 QUANTITATIVE PCR BLOOD Lab Routine CML (chronic myeloid leukemia) (HCC) Expected: 02/15/2022, Expires: 04/17/2022 [facility] Work Phone: Comment on above: Expected: 02/15/2022, Expires: 2 Start: 02-07-2022 Influenza vaccination [facility] Start: 12-04-2021 End: 02-03-2022 BCR/ABL1 P210 QUANTITATIVE PCR BLOOD BCR/ABL1 P210 QUANTITATIVE PCR BLOOD Lab Routine CML (chronic myelocytic leukemia) (HCC) Expected: 12/04/2021, Expires: 02/03/2022 [facility] Work Phone: Comment on above: Expected: 12/04/2021, Expires: 2 Start: 11-26-2021 End: 11-27-2021 Amylase [Enzymatic activity/volume] in Serum or Plasma AMYLASE BLD Lab STAT CML (chronic myeloid leukemia) ([facility]) Expected: 11/26/2021, Expires: 11/27/2021 [facility] Work Phone: Comment on above: Expected: 11/26/2021, Expires: 2 Start: 11-26-2021 End: 11-27-2021 aPTT in Platelet poor plasma by Coagulation assay ACTIVATED PTT Lab STAT CML (chronic myeloid leukemia) ([facility]) Expected: 11/26/2021, Expires: 11/27/2021 [facility] Work Phone: Comment on above: Expected: 11/26/2021, Expires: 2 Start: 11-26-2021 End: 11-27-2021 Bilirubin.conjugated [Mass/volume] in Serum or Plasma BILIRUBIN DIRECT BLD Lab STAT CML (chronic myeloid leukemia) ([facility]) Expected: 11/26/2021, Expires: 11/27/2021 [facility] Work Phone: Comment on above: Expected: 11/26/2021, Expires: 2 Start: 11-26-2021 End: 11-27-2021 CBC W Auto Differential panel - Blood CBC + DIFF Lab STAT CML (chronic myeloid leukemia) ([facility]) Expected: 11/26/2021, Expires: 11/27/2021 [facility] Work Phone: Comment on above: Expected: 11/26/2021, Expires: 2 Start: 11-26-2021 End: 11-27-2021 Cholesterol [Mass/volume] in Serum or Plasma CHOLESTEROL BLD Lab STAT CML (chronic myeloid leukemia) ([facility]) Expected: 11/26/2021, Expires: 11/27/2021 [facility] Work Phone: Comment on above: Expected: 11/26/2021, Expires: 2 Start: 11-26-2021 End: 11-27-2021 CK CREATINE KINASE CK CREATINE KINASE Lab STAT CML (chronic myeloid leukemia) ([facility]) Expected: 11/26/2021, Expires: 11/27/2021 [facility] Work Phone: Comment on above: Expected: 11/26/2021, Expires: 2 Start: 11-26-2021 End: 11-27-2021 CLINICAL TRIAL DRAW CLINICAL TRIAL DRAW Lab STAT CML (chronic myeloid leukemia) ([facility]) Expected: 11/26/2021, Expires: 11/27/2021 [facility] Work Phone: Comment on above: Expected: 11/26/2021, Expires: 2 Start: 11-26-2021 End: 11-27-2021 Comprehensive metabolic 2000 panel - Serum or Plasma COMP METABOLIC PANEL Lab STAT CML (chronic myeloid leukemia) ([facility]) Expected: 11/26/2021, Expires: 11/27/2021 [facility] Work Phone: Comment on above: Expected: 11/26/2021, Expires: 2 Start: 11-26-2021 End: 11-27-2021 HDL CHOLESTEROL BLD HDL CHOLESTEROL BLD Lab STAT CML (chronic myeloid leukemia) ([facility]) Expected: 11/26/2021, Expires: 11/27/2021 [facility] Work Phone: Comment on above: Expected: 11/26/2021, Expires: 2 Start: 11-26-2021 End: 11-27-2021 Lipase [Enzymatic activity/volume] in Serum or Plasma LIPASE BLD Lab STAT CML (chronic myeloid leukemia) ([facility]) Expected: 11/26/2021, Expires: 11/27/2021 [facility] Work Phone: Comment on above: Expected: 11/26/2021, Expires: 2 Start: 11-26-2021 End: 11-27-2021 Magnesium [Mass/volume] in Serum or Plasma MAGNESIUM BLD Lab STAT CML (chronic myeloid leukemia) ([facility]) Expected: 11/26/2021, Expires: 11/27/2021 [facility] Work Phone: Comment on above: Expected: 11/26/2021, Expires: 2 Start: 11-26-2021 End: 11-27-2021 Phosphate [Mass/volume] in Serum or Plasma PHOSPHORUS INORGANIC Lab STAT CML (chronic myeloid leukemia) ([facility]) Expected: 11/26/2021, Expires: 11/27/2021 [facility] Work Phone: Comment on above: Expected: 11/26/2021, Expires: 2 Start: 11-26-2021 End: 11-27-2021 PT panel - Platelet poor plasma by Coagulation assay PROTHROMBIN TIME/PT Lab STAT CML (chronic myeloid leukemia) ([facility]) Expected: 11/26/2021, Expires: 11/27/2021 [facility] Work Phone: Comment on above: Expected: 11/26/2021, Expires: 2 Start: 11-26-2021 End: 11-27-2021 Triglyceride [Mass/volume] in Serum or Plasma TRIGLYCERIDES BLD Lab STAT CML (chronic myeloid leukemia) ([facility]) Expected: 11/26/2021, Expires: 11/27/2021 [facility] Work Phone: Comment on above: Expected: 11/26/2021, Expires: 2 Start: 11-26-2021 End: 11-27-2021 TROPONIN T TROPONIN T Lab STAT CML (chronic myeloid leukemia) ([facility]) Expected: 11/26/2021, Expires: 11/27/2021 [facility] Work Phone: Comment on above: Expected: 11/26/2021, Expires: 2 Start: 11-26-2021 End: 11-27-2021 Urate [Mass/volume] in Serum or Plasma URIC ACID BLOOD Lab STAT CML (chronic myeloid leukemia) ([facility]) Expected: 11/26/2021, Expires: 11/27/2021 [facility] Work Phone: Comment on above: Expected: 11/26/2021, Expires: 2 Start: 11-26-2021 End: 11-27-2021 URINALYSIS, DIPSTICK ONLY URINALYSIS, DIPSTICK ONLY Lab STAT CML (chronic myeloid leukemia) (HCC) Expected: 11/26/2021, Expires: 11/27/2021 [facility] Work Phone: Comment on above: Expected: 11/26/2021, Expires: 2 Start: 06-23-2021 COLORECTAL CANCER SCREENING COLORECTAL CANCER SCREENING [facility] Start: 06-23-2021 FECAL OCCULT BLOOD FECAL OCCULT BLOOD [facility] Start: 06-23-2021 Screening for malignant neoplasm of colon [facility] Start: 06-09-2021 DEPRESSION ASSESSMENT DEPRESSION ASSESSMENT [facility] Start: 02-07-2021 Influenza vaccination INFLUENZA (#1) [facility] Start: 12-16-2020 DTaP,Tdap and Td Vaccines (2 - Td or Tdap) DTaP,Tdap and Td Vaccines (2 - Td or Tdap) [facility] Start: 12-16-2020 Urine microalbumin profile [facility] Start: 10-17-2020 COVID-19 VACCINE (3 - Pfizer risk 4-dose series) COVID-19 VACCINE (3 - Pfizer risk 4-dose series) [facility] Start: 10-17-2020 COVID-19 VACCINE (3 - Pfizer risk series) COVID-19 VACCINE (3 - Pfizer risk series) [facility] Start: 2018 SHINGRIX VACCINE (1 of 2) SHINGRIX VACCINE (1 of 2) [facility] Start: 05-20-2018 PNEUMOCOCCAL (2 - PPSV23 if available, else PCV20) PNEUMOCOCCAL (2 - PPSV23 if available, else PCV20) [facility] Start: 05-20-2018 PNEUMOCOCCAL (2 - PPSV23 or PCV20) PNEUMOCOCCAL (2 - PPSV23 or PCV20) [facility] Start: 05-05-2018 Glaucoma screening Dilated Retinal Exam [facility] Start: 05-05-2018 Hepatitis C antibody, confirmatory test DILATED RETINAL EXAM [facility] Start: 07-15-2017 PNEUMOCOCCAL (2 - PPSV23 if available, else PCV20) PNEUMOCOCCAL (2 - PPSV23 if available, else PCV20) [facility] Start: 07-15-2017 PNEUMOCOCCAL (2 - PPSV23 or PCV20) PNEUMOCOCCAL (2 - PPSV23 or PCV20) [facility] Start: 07-15-2017 Pneumococcal vaccination [facility] Start: 2013 COLOGUARD (FIT-DNA) COLOGUARD (FIT-DNA) [facility] Start: 2013 Colonoscopy COLONOSCOPY [facility] Start: [address] COLONOGRAPHY [facility] Start: 2013 Screening for malignant neoplasm of colon [facility] Start: 2013 SIGMOIDOSCOPY SIGMOIDOSCOPY [facility] Start: 09-26-1987 Administration of varicella zoster vaccine Zoster (Shingles) Vaccine (1 of 2) [facility] Start: 09-26-1987 Hepatitis B Vaccine (1 of 3 - 19+ 3-dose series) Hepatitis B Vaccine (1 of 3 - 19+ 3-dose series) [facility] Start: 09-26-1987 SHINGRIX VACCINE (1 of 2) SHINGRIX VACCINE (1 of 2) [facility] Start: 1986 Adult BMI Follow Up Plan Adult BMI Follow Up Plan [facility] Start: 1986 ANNUAL PCP TEAM CHRONIC DISEASE VISIT ANNUAL PCP TEAM CHRONIC DISEASE VISIT [facility] Start: 1986 BP CONTROLLED (<130/80) BP CONTROLLED (<130/80) [facility] Start: 1986 Diabetic foot examination Diabetic Foot Exam [facility] Start: 1980 Depression Screening Depression Screening [facility] Start: 1978 3 comp foot exam completed DIABETIC FOOT EXAM [facility] Start: 1978 Diabetic foot examination Diabetic Foot Exam [facility] Start: 1968 Glaucoma screening Diabetic Ophthalmology Exam [facility] Start: 1968 HEPATITIS B (1 of 3 - 3-dose series) HEPATITIS B (1 of 3 - 3-dose series) [facility] Start: 1968 Hepatitis B Vaccine (1 of 3 - 3-dose series) Hepatitis B Vaccine (1 of 3 - 3-dose series) [facility] Diagnostic bone marko ow biopsies IMAGING GUIDED BIOPSY BONE MARROW (HEMATOLOGY) Radiology Routine CML (chronic myeloid leukemia) (HCC) Ordered: 01/14/2022 [facility] Work Phone: Comment on above: Ordered: 01/14/2022 Diagnostic bone marko ow biopsies IMAGING GUIDED BIOPSY BONE MARROW (HEMATOLOGY) Radiology Routine CML (chronic myeloid leukemia) (HCC) Ordered: 08/07/2022 [facility] Work Phone: Comment on above: Ordered: 08/07/2022 Diagnostic bone marko ow biopsies IMAGING GUIDED BIOPSY BONE MARROW (HEMATOLOGY) Radiology Routine CML (chronic myeloid leukemia) (HCC) Ordered: 05/22/2023 [facility] Work Phone: Comment on above: Ordered: 05/22/2023 End: 09-10-2022 ECG COMPLETE ECG COMPLETE ECG Routine CML (chronic myeloid leukemia) (HCC) 1 Occurrences starting 09/10/2021 until 09/10/2022 [facility] Work Phone: Comment on above: 1 Occurrences starting 09/10/2021 until 09/10/2022 End: 11-26-2022 ECG COMPLETE ECG COMPLETE ECG Routine CML (chronic myeloid leukemia) (HCC) 1 Occurrences starting 11/27/2021 until 11/26/2022 [facility] Work Phone: Comment on above: 1 Occurrences starting 11/27/2021 until 11/26/2022 End: 12-03-2022 ECG COMPLETE ECG COMPLETE ECG Routine CML (chronic myeloid leukemia) (HCC) 1 Occurrences starting 12/04/2021 until 12/03/2022 [facility] Work Phone: Comment on above: 1 Occurrences starting 12/04/2021 until 12/03/2022 End: 09-10-2022 Echocardiography ECHO Cardiology Routine CML (chronic myeloid leukemia) (HCC) 1 Occurrences starting 09/10/2021 until 09/10/2022 [facility] Work Phone: Comment on above: 1 Occurrences starting 09/10/2021 until 09/10/2022 End: 11-26-2022 Echocardiography ECHO Cardiology Routine CML (chronic myeloid leukemia) (HCC) 1 Occurrences starting 11/27/2021 until 11/26/2022 [facility] Work Phone: Comment on above: 1 Occurrences starting 11/27/2021 until 11/26/2022 End: 01-10-2023 Echocardiography ECHO Cardiology Routine CML (chronic myeloid leukemia) (HCC) 1 Occurrences starting 01/14/2022 until 01/10/2023 [facility] Work Phone: Comment on above: 1 Occurrences starting 01/14/2022 until 01/10/2023 End: 05-10-2023 Echocardiography ECHO Cardiology Routine CML (chronic myelocytic leukemia) (HCC) 1 Occurrences starting 05/23/2022 until 05/10/2023 [facility] Work Phone: Comment on above: 1 Occurrences starting 05/23/2022 until 05/10/2023 End: 12-05-2023 Echocardiography ECHO Cardiology Routine CML (chronic myeloid leukemia) (HCC) 1 Occurrences starting 12/05/2022 until 12/05/2023 [facility] Work Phone: Comment on above: 1 Occurrences starting 12/05/2022 until 12/05/2023 End: 01-23-2024 Echocardiography ECHO Cardiology Routine Chronic myeloid leukemia (HCC) 1 Occurrences starting 01/23/2023 until 01/23/2024 [facility] Work Phone: Comment on above: 1 Occurrences starting 01/23/2023 until 01/23/2024 Hepatitis B virus lopez rface Ab [Presence] in Serum [facility] Hepatitis B virus lopez rface Ag [Presence] in Serum or Plasma by Immunoassay [facility] Hepatitis C virus Ig G Ab [Presence] in Serum or Plasma by Immunoassay [facility] Immunizations Immunization Date Immunization Notes Care Provider Fa jose manuelty 09-19-2020 COVID-19 vaccine, ag e 12+ yr (PFIZER-BIONTECH - PURPLE TOP) Emma Tuttle RN [facility] 08-29-2020 COVID-19 vaccine, ag e 12+ yr (PFIZER-BIONTECH - PURPLE TOP) Emma Tuttle RN [facility] 04-21-2018 influenza, injectabl e, quadrivalent, preservative free Emma Tuttle RN [facility] 04-21-2018 influenza virus vacc ine, unspecified formulation Kylee Dalal NEON PUMPER.CONDENSER TESTER Work Phone: [facility] 05-21-2017 influenza, injectabl e, quadrivalent, preservative free Emma Tuttle RN [facility] 05-20-2017 influenza nasal, unspecified formulation Emma Tuttle RN [facility] 05-20-2017 pneumococcal conjuga te vaccine, 13 valent Emma Tuttle RN [facility] 07-19-2016 influenza, seasonal, injectable, preservative free Emma Tuttle RN [facility] 12-16-2010 tetanus toxoid, redu preet diphtheria toxoid, and acellular pertussis vaccine, adsorbed Emma Tuttle RN [facility] 07-13-2009 novel influenza-H1N1 -09, preservative-free, injectable Emma Tuttle [facility] Payers Date Payer Category Payer Self-pay [id number] 2022 Medicaid [id number] 2022 Medicaid [id number] 2021 Private Health Insurance xxx [id number] 2020 Medicaid [employer] MEDICAID [id number] 2020-[facility] [phone] [address] [place] [address] Medicaid [id number] 2020 Private Health Insurance [id number] .[id number]. [id number] 2019 Unknown [id number] 1968 Unknown [id number] 2.16.840.1.576458.3.579.2. 593 1968 Unknown [id number] 2.16.840.1.331184.3.579.2. 593 1968 Unknown [id number] 2.16.840.1.434233.3.579.2. 593 1968 Unknown [id number] 2.16.840.1.815258.3.579.2. 593 1968 Unknown [id number] 2.16.840.1.522769.3.579.2. 593 1968 Unknown [id number] 2.16.840.1.492988.3.579.2. 593 1968 Unknown [id number] 2.16.840.1.959497.3.579.2. 1286 1968 Unknown [id number] 2.16.840.1.117371.3.579.2. 128 1968 Unknown [id number] 2.16.840.1.460815.3.579.2. 1285 1968 Unknown [id number] 2.16.840.1.799865.3.579.2. 128 1968 Unknown [id number] 2.16.840.1.804827.3.579.2. 1285 1968 Unknown [id number] 2.16.840.1.337672.3.579.2. 1285 1968 Unknown [id number] 2.16.840.1.685874.3.579.2. 1285 1968 Unknown [id number] 2.16.840.1.912722.3.579.2. 1286 1968 Unknown [id number] 2.16.840.1.413592.3.579.2. 1258 1968 Unknown [id number] 2.16.840.1.381181.3.579.2. 1258 1968 Unknown [id number] 2.16.840.1.087966.3.579.2. 1258 1968 Unknown [id number] 2.16.840.1.611504.3.579.2. 1258 1968 Unknown [id number] 2.16.840.1.655603.3.579.2. 1258 1968 Unknown [id number] 2.16.840.1.108348.3.579.2. 1258 1968 Unknown [id number] 2.16.840.1.892160.3.579.2. 9 1959 Unknown [id number] 1959 Unknown [id number] 1959 Unknown [id number] Unknown [place] BC/BS [id number] Unknown [id number] Unknown [id number] 2..840.1.554062.3.579.2. 531 Unknown [id number] 216.840.1.420015.3.579.2. 531 Social History Date Type Detail Facility Start: 02-18-2022 End: 05-16-2022 Tobacco smoking status NHIS Never smoked tobacco [facility] Start: 09-03-2021 End: 10-01-2023 Alcohol intake Current drinker of alcohol (finding) [facility] Start: 1970 Sex Assigned At Not on file [facility] Start: 08-24-2021 End: 05-13-2022 Exposure to SARS-CoV-2 (event) Not sure [facility] Start: 02-18-2022 End: 05-16-2022 Tobacco use and exposure Smokeless tobacco non-user [facility] Start: 10-15-2022 End: 10-30-2022 History of Social function [facility] Start: 10-15-2022 End: 10-30-2022 Tobacco use panel [facility] Adult Depression Screening Assessment 1 [facility] Start: 1970 Sex Assigned At Male F [facility] Start: 03-20-2023 Alcohol Comment [facility], [facility] Start: 03-23-2023 Gender identity Identifies as male gender (finding) [facility] Start: 03-23-2023 Sexual orientation Heterosexual (fin ding) [facility] Medical Equipment Procedure Code Equipment Code Equipment Origin al Text Equipment Identifier Dates Use with blood glucose test one time daily [id number] Start: 08-29-2023 Comment on above: Use with blood gluco se test one time daily Clinical Notes 09-03-2021 to 10-28-2023 Meg Chowdhury APRN.DOMINIC - 10/28/2023 7:41 AM EDTTelephone Encounter - Germain Hubbard MA - 10/24/2023 3:31 PM EDTTelephone Encounter - Germain Hubbard MA - 10/24/2023 3:31 PM EDT Note Date & Type Note [facility] 10-28-2023 Note [facility] 10-28-2023 History of Present illness Narrative Please let Derrell know that per insurance preference, Farxiga was switched to Jardiance. Jardiance is in the same class of medications as Farxiga and has a similar mechanism of action. Per paperwork received, Jardiance is the preferred formulary medication. Thank you. Meg Chowdhury APRN.CONDENSER TESTER documented in this encounter [facility] 10-24-2023 Telephone encounter Note Images from the original note were not included. See HOTELbeatt message with patient regarding if patient has tried either of these medications. [facility] 10-24-2023 Miscellaneous Notes Images from the original note were not included. See HOTELbeatt message with patient regarding if patient has tried either of these medications. Called [phone] for Prior Auth update. Answered additional clinical questions. Rep by the name of Abdiaziz states a determination will be available between 24-72 hours. Prior Auth#: [id number] Images from the original note were not included. Received the following messgage from [facility]: Called [phone] and initiated verbal prior authorization with rep Abdiaziz. Prior Auth #: [id number]. Awaiting determination Prioe Auth initiated via covermymeds for Farxiga. Will await the determination. documented in this encounter [facility] 10-22-2023 Telephone encounter Note Called [phone] for Prior Auth update. Answered additional clinical questions. Rep by the name of Abdiaziz states a determination will be available between 24-72 hours. Prior Auth#: [id number] [facility] 10-20-2023 Telephone encounter Note Images from the original note were not included. Received the following messgage from [facility]: Called [phone] and initiated verbal prior authorization with rep Abdiaziz. Prior Auth #: [id number]. Awaiting determination [facility] 10-17-2023 Telephone encounter Note Prioe Auth initiated via covermymeds for [place]. Will await the determination. [facility] 10-14-2023 Telephone encounter Note IRB# [id number]/[facility]# [id number]: Study Description A Randomized, Open-label, Phase 2 Trial of Ponatinib in Patients with Resistant Chronic Phase Chronic Myeloid Leukemia to Characterize the Efficacy and Safety of a Range of Doses Derrell Avitia JR [id number] Survival/Autocad Designer Follow Up Call Snf Follow Up performed every 12 weeks 14 days till 5 years, starting after the last dose of ponatinib or the burglary investigator/patient decision to discontinue treatment--whichever occurs later. Chart Review for survival performed Raheem Santos, Research Coordinator . Patient was last seen Office visit on 10/01/2023 by William Howell MD, PhD Current treatment is Trial ACTG 1920 -taking INV [id number] associated with Clinical Trial Per sponsor email from this will be the last follow-up call for this trial. Patient knows to call in the interim for any questions or concerns. Raheem Santos, Research Coordinator [facility] 10-14-2023 Miscellaneous Notes IRB# [id number]/[facility]# ARIA 2915: Study Description A Randomized, Open-label, Phase 2 Trial of Ponatinib in Patients with Resistant Chronic Phase Chronic Myeloid Leukemia to Characterize the Efficacy and Safety of a Range of Doses Derrell Avitia JR [id number] Survival/Autocad Designer Follow Up Call Autocad Designer Follow Up performed every 12 weeks 14 days till 5 years, starting after the last dose of ponatinib or the burglary investigator/patient decision to discontinue treatment--whichever occurs later. Chart Review for survival performed Raheem Santos Research Coordinator . Patient was last seen Office visit on 10/01/2023 by William Howell MD, PhD Current treatment is Trial ACTG 1920 -taking INV [id number] associated with Clinical Trial Per sponsor email from this will be the last follow-up call for this trial. Patient knows to call in the interim for any questions or concerns. Raheem Santos, Research Coordinator documented in this encounter [facility] 10-03-2023 Note [facility] 10-03-2023 Note [facility] 10-01-2023 Note [facility] 10-01-2023 History of Present illness Narrative Summary: ACTG 1919 cycle 42 day 28 ACTG 1919 A phase 1b study of the pharmacokinetics, safety and efficacy of orally administered [id number] in subjects with refractory chronic myeloid leukemia (CML). Patient is here for screening for ACTG 1920 / . He was diagnosed with BCR-ABL positive [...] report. Patient reported that he saw a tar heater operator and is being treated for right heal [...] L4 and L5 infusion Prior to 03/2012 HI ANESTH,KNEE JOINT; NOS right knee Prior to [...] 12/2014 -- 03/2016 Bosutinib 03/2016 - 05/02/2017 [facility] 2915 15-875 trial of Ponatinib 05/21/2017 - [...] 14 units sq at dinner 05/2022 Diabetes [place] 5/325 mg 1 tab PO x 1 [...] on 04/17/2023 then every other day. Lot# [id number] Patient aware next appointment is 12/24/2023 and can be viewed on [employer]. 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 Patient understands that this participation is voluntary and that he may withdraw at any time during the trial. Emma Tuttle RN, OCN documented in this encounter [facility] 10-01-2023 Note [facility] 10-01-2023 History of Present illness Narrative CRC Documentation IRB#: [id number][facility], Study Title: A phase 1b study of the pharmacokinetics, safety and efficacy of orally administered [id number] in subjects with refractory chronic myeloid leukemia [...] completed: No-Completed by Ludy Mead [facility] EKGs ([facility]): Yes Given to RN/Emma Lemus RN for review. Raheem Santos, Research Coordinator documented in this encounter [facility] 10-01-2023 Note [facility] 10-01-2023 History of Present illness Narrative [facility] Department of Hematologic Oncology and Blood Disorders PATIENT NAME: Derrell Hsu 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 Day 1 was 06/19/2020. Cycle 5 scheduled to start on 10/13/2020 was delayed to elevated lipase levels. Today is day 28 of cycle 42. He is being dosed at 30 mg [...] reduction) 01/22/2023 - 0.7883% (2.1 log reduction) 07/09/2023 - 0.3748% (2.43 log reduction) Impression: This is a 52 [...] pharmacokinetics, safety and efficacy of orally administered [id number] in subjects with refractory chronic myeloid leukemia [...] same [place] [address], [place] [address], monocytosis (5700), 6700 lymphocytes, 500 basophils and thrombocytopenia with platelets at 910736. Metaphase cytogenetics showed presence of t(9;22) in [...] He was enrolled on a clinical trial, [facility] 2915 15-875 A Randomized, Open-label, Phase 2 [...] pharmacokinetics, safety and efficacy of orally administered [id number] in subjects with refractory chronic myeloid leukemia [...] motor strength. Psychiatric: Memory, short term & termite control servicer intact; no disturbance in sleep pattern and [...] > 10 years Current medication: Reviewed from [facility] and integrated in assessment and plan. Social History: He is . 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 He does not smoke cigarettes and has [...] radiation therapy, chemotherapy. Physical Examination: Vitals: BP 143/70 Pulse (!) 59 Temp 36 C (96.8 F) (Temporal) Resp 18 Wt 120.2 kg (264 lb 15.9 oz) SpO2 (!) 10% BMI 38.02 kg/m ECOG - 1 Gen: Awake, alert, [...] edema Labs: CBC with differential reviewed from [facility] from 01/22/2023 and integrated in assessment and plan. William Howell MD PhD MPH Associate Staff Hematologic Oncology and Blood Disorders Pager [phone] Date of service: 10/01/2023 I spent a total of 40 minutes on the date of the service which included preparing to see the patient, [id number] patient care, completing clinical documentation, obtaining and/or reviewing separately obtained history, performing a medically appropriate examination, counseling and educating the patient/family/caregiver, ordering medications, tests, or procedures, independently interpreting laboratory and imaging results (not separately reported), communicating results to the patient/family/caregiver, and care coordination (not separately reported). documented in this encounter [facility] 10-01-2023 Nurse Note Additional intake questions: Has the patient had fever, nausea, vomiting, diarrhea, constipation, fatigue for > 1 week? Yes, fatigue Does the patient have a decreased appetite? No Does patient want to see a Gas Operation Manager? No (yes to any of above refer patient to schedulers for dietitian appointment) ) Does patient have any new or increased numbness or tingling of extremities? No Is patient interested in fertility information? No Does patient need any prescription refills? No Does patient have an advanced directive in place? No [facility] 10-01-2023 Nurse Note Additional intake questions: Has the patient had fever, nausea, vomiting, diarrhea, constipation, fatigue for > 1 week? Yes, fatigue Does the patient have a decreased appetite? No Does patient want to see a Gas Operation Manager? No (yes to any of above refer patient to schedulers for dietitian appointment) ) Does patient have any new or increased numbness or tingling of extremities? No Is patient interested in fertility information? No Does patient need any prescription refills? No Does patient have an advanced directive in place? No documented in this encounter [facility] 09-10-2023 Miscellaneous Notes Left message on patient's answering machine to remind them of their appointment time and to bring a current list of medications with them. documented in this encounter [facility] 09-10-2023 Telephone encounter Note Left message on patient's answering machine to remind them of their appointment time and to bring a current list of medications with them. [facility] 08-29-2023 Instructions Kylee Dalal APRN.DOMINIC - 08/29/2023 7:59 AM EDT Plan Continue: [...] in 6 months documented in this encounter [facility] 08-29-2023 Note [facility] 08-29-2023 History of Present illness Narrative Endocrinology Follow Up PCP: Buffy hCung [facility] History of Present Illness Derrell Avitia JR is a 52 year old male presents today for follow up of DM Type 2. At [facility] increased insulin and started Farxiga. Sugars [...] dose. Medical Supplies and DME - Insulin [place] and Admin Supplies omega-3 acid ethyl esters (LOVAZA) 1 gram capsule Take 2 capsules by mouth twice daily. Antihyperlipidemic - George-3 Fatty Acid Type Physical Activity: Sedentary Diet: [...] Desk Reference: National Heart, Lung, and Blood [place]. National Institutes of Health. 2001: [facility] Publication No. . HDL Cholesterol Date Value Ref Range Status 05/13/2022 38 (L) >39 mg/dL Final Comment: 40-59 mg/dL, Acceptable >59 mg/dL, High: Negative risk factor for coronary heart disease <40 mg/dL, Low: Positive risk factor for coronary heart disease Reference: 1. National Cholesterol Education Program ATP III Guideline At-A-Glance Quick Desk Reference: National Heart, Lung, and Blood [place]. National Institutes of Health. 2000: [facility] Publication No. . LDL Cholesterol Date Value [...] Desk Reference: National Heart, Lung, and Blood Bitely. National Institutes of Health. 2000: [facility] Publication No. . Latest Ref Rng 07/09/2023 LDL Cholesterol, Direct [...] has microalbuminuria and is on ALDEN-I or ARB and SGLT2i. 5. Ophthalmology: Annual [...] time of the patient encounter Kylee Dalal APRN.CONDENSER TESTER (Signed electronically to expedite mailing) documented in this encounter [facility] 08-08-2023 Note [facility] 08-08-2023 History of Present illness Narrative [facility] Department of Hematologic Oncology and Blood Disorders PATIENT NAME: Derrell Hsu 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 1920 20-998 Title: A phase 1b study of the pharmacokinetics, safety and efficacy of orally administered [id number] in subjects with refractory chronic myeloid leukemia [...] pharmacokinetics, safety and efficacy of orally administered XMR0197 in subjects with refractory chronic myeloid leukemia [...] same [place] [address], [place] [address], monocytosis (5700), 6700 lymphocytes, 500 basophils and thrombocytopenia with platelets at 755694. Metaphase cytogenetics showed presence of t(9;22) in [...] [facility] Randomized, Open-label, Phase 2 [...] pharmacokinetics, safety and efficacy of orally administered ZXS2924 in subjects with refractory chronic myeloid leukemia [...] motor strength. Psychiatric: Memory, short term & halfway intact; no disturbance in sleep pattern and [...] > 10 years Current medication: Reviewed from [facility] and integrated in assessment and plan. Social History: He is . 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 William Howell MD PhD MPH Associate Staff Hematologic Oncology and Blood Disorders Pager [phone] Date of service: 07/07/2023 documented in this encounter [facility] 07-09-2023 Note [facility] 07-09-2023 Nurse Note Additional intake questions: Has the patient had fever, nausea, vomiting, diarrhea, constipation, fatigue for > 1 week? Yes, fatigue Does the patient have a decreased appetite? No Does patient want to see a Gas Operation Manager? No (yes to any of above refer patient to schedulers for dietitian appointment) ) Does patient have any new or increased numbness or tingling of extremities? No Is patient interested in fertility information? No Does patient need any prescription refills? No Does patient have an advanced directive in place? No, documented in this encounter [facility] 06-17-2023 Note [facility] 06-13-2023 Note [facility] 06-13-2023 Note [facility] 05-20-2023 Note HNO ID: [id number] Author: Emma Tuttle RN Service: ? Author Type: Registered Nurse Type: Progress Notes Filed: 05/22/2023 10:33 AM Note Text: Omid [facility] 05-20-2023 History of Present illness Narrative Imagin documented in this encounter [facility] 05-20-2023 Note [facility] 05-20-2023 History of Present illness Narrative [facility] Department of Hematologic Oncology and Blood Disorders PATIENT NAME: Derrell Hsu 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 Metaphase cytogenetics showed presence of t(9;22) in [...] pharmacokinetics, safety and efficacy of orally administered TKK4042 in subjects with refractory chronic myeloid leukemia [...] motor strength. Psychiatric: Memory, short term & termite control servicer intact; no disturbance in sleep pattern and [...] > 10 years Current medication: Reviewed from [facility] and integrated in assessment and plan. Social History: He is . 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 William Howell MD PhD MPH Associate Staff Hematologic Oncology and Blood Disorders Pager [phone] Date of service: 04/16/2023 documented in this encounter [facility] 05-20-2023 Miscellaneous Notes IRB# [id number]/[facility]# ARIA [id number]: Study Description A Randomized, Open-label, Phase 2 Trial of Ponatinib in Patients with Resistant Chronic Phase Chronic Myeloid Leukemia to Characterize the Efficacy and Safety of a Range of Doses Derrell Avitia [id number] Survival/Autocad Designer Follow Up Call Snf Follow Up performed every 12 weeks 14 days till 5 years, starting after the last dose of ponatinib or the burglary investigator/patient decision to discontinue treatment--whichever occurs later. Chart Review for survival performed Raheem Santos Research Coordinator . Patient was last seen in clinic on 04/18/2023 by Ezra Kang MD Current treatment is Trial ACTG 1920. Next survival f/u due 06/12/2023 Patient aware that next follow up call will occur on 06/12/2023. Patient knows to call in the interim for any questions or concerns. Raheem F Lucchese, Research Coordinator documented in this encounter [facility] 04-18-2023 Note [facility] 04-17-2023 Note [facility] 04-17-2023 Note HNO ID: [id number] Author: Germain Hubbard MA Service: ? Author Type: Motor Racer Type: Procedures Filed: 04/17/2023 4:23 PM Note Text: [facility] 04-16-2023 Note [facility] 04-16-2023 History of Present illness Narrative Summary: ACT 1920 / 20-998 cycle 36 day 28 ACTG 1920 -998 A phase 1b study of the pharmacokinetics, safety and efficacy of orally administered [id number] in subjects with refractory chronic myeloid leukemia [...] Prior to 03/2012 L4 and L5 infusion HI ANESTH,KNEE JOINT; NOS right Prior to 03/2012Prior [...] 12/2014 -- 03/2016 Bosutinib 03/2016 - 05/02/2017 [facility] 2915 15-875 trial of Ponatinib 05/21/2017 - [...] 14 units sq at dinner 05/2022 Diabetes [place] 5/325 mg 1 tab PO x 1 [...] on 04/17/2023 then every other day. Lot# [id number] Patient aware next appointment 07/08/2023, will appear on [employer] when processed. Patient presented today to participate [...] nurse's contact information and after hours fellows conditioning yard supervisor. Patient understands that this participation is voluntary and that he may withdraw at any time during the trial. Emma Tuttle RN, OCN documented in this encounter [facility] 04-16-2023 Nurse Note Additional intake questions: Has the patient had fever, nausea, vomiting, diarrhea, constipation, fatigue for > 1 week? Yes, constipation (day of last BM 04/15/23) and fatigue Does the patient have a decreased appetite? No Does patient want to see a Gas Operation Manager? No (yes to any of above refer patient to schedulers for dietitian appointment) ) Does patient have any new or increased numbness or tingling of extremities? Yes, feet Is patient interested in fertility information? No Does patient need any prescription refills? No Does patient have an advanced directive in place? No, Patient referred to [facility] documented in this encounter [facility] 03-21-2023 Miscellaneous Notes Last office visit 10/15/22 Future appt scheduled 04/17/23 Last A1C 01/22/23 documented in this encounter [facility] 02-03-2023 Miscellaneous Notes IRB# [id number]/[facility]# ARIA [id number]: Study Description A Randomized, Open-label, Phase 2 Trial of Ponatinib in Patients with Resistant Chronic Phase Chronic Myeloid Leukemia to Characterize the Efficacy and Safety of a Range of Doses Derrell Avitia [id number] Survival/Autocad Designer Follow Up Call Autocad Designer Follow Up performed every 12 weeks 14 days till 5 years, starting after the last dose of ponatinib or the burglary investigator/patient decision to discontinue treatment--whichever occurs later. Chart Review for survival performed Raheem Santos Research Coordinator . Patient was last seen in clinic on 01/22/2023 by Emma Tuttle RN. Current treatment is Trial ACTG 1920. Next survival f/u due 04/28/2023. Patient aware that next follow up call will occur on 04/28/2023. Patient knows to call in the interim for any questions or concerns. Raheem Santos Research Coordinator February 03, 2023 12:16 PM documented in this encounter [facility] 01-24-2023 Miscellaneous Notes Spoke to pt [...] for this procedure: low risk. Reference from [facility] Humid System Operator: [email or web address] STAFF SIGNATURE: Shaggy Kaur MD DATE: January [...] CONTACT INFORMATION: Best way to reach patient [phone] SCHEDULING: Date: 04/18/2023 (Specific requests must be [...] random biopsies do not need imaging.) IMAGING: [facility] (If the imaging was obtained outside the [facility] system, PLEASE upload for review prior to approval.) Note to all persons requesting biopsies: All biopsy requests will be scheduled as quickly as possible, based on the clinical urgency, availability of appointment times, the need to hold anti-thrombolytic therapy (aspirin and other blood thinners) and the patient s schedule, including the need for an available laundry route driver. If a percutaneous biopsy or drainage is not felt to be safe or an alternative method for establishing a diagnosis is possible, this will be discussed directly with the requesting physician. documented in this encounter [facility] 01-22-2023 Note [facility] 01-22-2023 History of Present illness Narrative Summary: ACTG 1920 / 20-998 cycle 33 day 28 ACTG 1920 20-998 A phase 1b study of the pharmacokinetics, safety and efficacy of orally administered [id number] in subjects with refractory chronic myeloid leukemia [...] Prior to 03/2012 L4 and L5 infusion HI ANESTH,KNEE JOINT; NOS right Prior to 03/2012Prior [...] 12/2014 -- 03/2016 Bosutinib 03/2016 - 05/02/2017 [facility] 2915 15-659 trial of Ponatinib 05/21/2017 - 07/15/2019 pegylated [...] 14 units sq at dinner 05/2022 Diabetes [place] 5/325 mg 1 tab PO x 1 [...] HQP on 01/23/2023 every other day. Lot# [id number] Patient aware next appointment is 11/01/2022 for bone marrow biopsy and he reports he has [facility] for appointments. Patient presented today to participate [...] nurse's contact information and after hours fellows conditioning yard supervisor. Patient understands that this participation is voluntary and that he may withdraw at any time during the trial. 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 (imatinib, dasatinib, nilotinib, bosutinib and ponatinib) Current Treatment - On a clinical trial - ACTG 1920 20-998 Title: A phase 1b study of the pharmacokinetics, safety and efficacy of orally administered [id number] in subjects with refractory chronic myeloid leukemia [...] the CML clinical trial - ACT 1920 20-008 Title: A phase 1b study of the pharmacokinetics, safety and efficacy of orally administered NFD8843 in subjects with refractory chronic myeloid leukemia [...] same [place] [address], [place] [address], monocytosis (5700), 6700 lymphocytes, 500 basophils and thrombocytopenia with platelets at 044661. Metaphase cytogenetics showed presence of t(9;22) in [...] and consented for the clinical trial - [facility] 1920 20-998 Title: A phase 1b study of the pharmacokinetics, safety and efficacy of orally administered [id number] in subjects with refractory chronic myeloid leukemia [...] motor strength. Psychiatric: Memory, short term & halfway intact; no disturbance in sleep pattern and [...] > 10 years Current medication: Reviewed from [facility] ([facility]) and integrated in assessment and plan. Social History: He is . 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 William Howell MD PhD MPH Associate Staff Hematologic Oncology and Blood Disorders Pager [phone] Date of service: 01/22/2023 documented in this encounter [facility] 01-22-2023 Nurse Note Additional intake questions: Has the patient had fever, nausea, vomiting, diarrhea, constipation, fatigue for > 1 week? No Does the patient have a decreased appetite? No Does patient want to see a Gas Operation Manager? No (yes to any of above refer patient to schedulers for dietitian appointment) ) Does patient have any new or increased numbness or tingling of extremities? Yes, bilateral feet per patient Is patient interested in fertility information? No Does patient need any prescription refills? No Does patient have an advanced directive in place? No, Patient referred to [facility] Electronically Signed By: Marcelino Finney LPN documented in this encounter [facility] 12-06-2022 Note [facility] 12-06-2022 History of Present illness Narrative [facility] Department of Hematologic Oncology and Blood Disorders PATIENT NAME: Derrell Hsu [facility] NO: [id number] Date of service:10/30/2022 Reason for visit: Follow up of CML on clinical trial Diagnosis: 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 (imatinib, dasatinib, nilotinib, bosutinib and ponatinib) Current Treatment - On a clinical trial - ACTG 1920 20-998 Title: A phase 1b study of the pharmacokinetics, safety and efficacy of orally administered [id number] in subjects with refractory chronic myeloid leukemia [...] pharmacokinetics, safety and efficacy of orally administered [id number] in subjects with refractory chronic myeloid leukemia [...] same [place] [address], [place] [address], monocytosis (5700), 6700 lymphocytes, 500 basophils and thrombocytopenia with platelets at 113787. Metaphase cytogenetics showed presence of t(9;22) in [...] [facility] A Randomized, Open-label, Phase 2 [...] pharmacokinetics, safety and efficacy of orally administered [id number] in subjects with refractory chronic myeloid leukemia [...] motor strength. Psychiatric: Memory, short term & termite control servicer intact; no disturbance in sleep pattern and [...] > 10 years Current medication: Reviewed from [facility] and integrated in assessment and plan. Social History: He is . 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 William Howell MD PhD MPH Associate Staff Hematologic Oncology and Blood Disorders Pager [phone] Date of service: 10/30/2022 documented in this encounter [facility] 10-30-2022 Nurse Note Additional intake questions: Has [...] or Resource Center documented in this encounter [facility] 10-16-2022 Note Attestation signed by Angus [...] be an additional personal documentation from me. [facility] 10-15-2022 Instructions Kylee Dalal APRN.CONDENSER TESTER - 10/15/2022 2:06 PM EDT Plan Adjust: [...] in 3 months documented in this encounter [facility] 10-15-2022 History of Present illness Narrative Endocrinology Follow Up PCP: Buffy Chung CNP [facility] History of Present Illness Derrell Hsu [...] Dosage Pharm Subclass flash glucose scanning reader (QuotefishSTYLE MARY ANN 2 READER) Check glucose 4 [...] dose. Medical Supplies and DME - Insulin [place]-Syringes and Admin Supplies omega-3 acid ethyl esters (LOVAZA) 1 gram capsule Take 2 capsules by mouth twice daily. Antihyperlipidemic - George-3 Fatty Acid Type Physical Activity: Sedentary Diet: [...] Adjust: Lantus 35 units twice daily Humalog 1018 with meals plus sliding scale If Blood [...] Desk Reference: National Heart, Lung, and Blood Bitely. National Institutes of Health. 2001: NIH Publication [...] Desk Reference: National Heart, Lung, and Blood Bitely. National Institutes of Health. 2001: [facility] Publication No. 01-3305. LDL Cholesterol Date Value [...] Desk Reference: National Heart, Lung, and Blood Bitely. National Institutes of Health. 2001: [facility] Publication No. 01-3305. -- This patient is [...] time of the patient encounter Kylee Dalal APRN.CNP (Signed electronically to expedite mailing) documented in this encounter [facility] 09-06-2022 History of Present illness Narrative [facility] Department of Hematologic Oncology and Blood Disorders PATIENT NAME: Derrell Avitia [facility] NO: [id number] Date of service: 08/05/2022 Reason for visit: Follow up of CML on clinical trial Diagnosis: 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 (imatinib, dasatinib, nilotinib, bosutinib and ponatinib) Current Treatment - On a clinical trial - ACTG 1920 20-998 Title: A phase 1b study of the pharmacokinetics, safety and efficacy of orally administered [id number] in subjects with refractory chronic myeloid leukemia [...] pharmacokinetics, safety and efficacy of orally administered [id number] in subjects with refractory chronic myeloid leukemia [...] same [place] [address], [place] [address], monocytosis (5700), 6700 lymphocytes, 500 basophils and thrombocytopenia with platelets at 583520. Metaphase cytogenetics showed presence of t(9;22) in [...] and consented for the clinical trial - [facility] 1920 20-998 Title: A phase 1b study of the pharmacokinetics, safety and efficacy of orally administered HHT2205 in subjects with refractory chronic myeloid leukemia [...] motor strength. Psychiatric: Memory, short term & termite control servicer intact; no disturbance in sleep pattern and [...] > 10 years Current medication: Reviewed from [facility] and integrated in assessment and plan. Social History: He is . 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 William Howell MD PhD MPH Associate Staff Hematologic Oncology and Blood Disorders Pager [phone] Date of service: 08/05/2022 Additional intake questions: Has the patient had fever, nausea, vomiting, diarrhea, constipation, fatigue for > 1 week? No Does the patient have a decreased appetite? No Does patient want to see a Gas Operation Manager? No (yes to any of above refer patient to schedulers for dietitian appointment) ) Does patient have any new or increased numbness or tingling of extremities? No Is patient interested in fertility information? No Does patient need any prescription refills? No Does patient have an advanced directive in place? No, Patient referred to Resource Center documented in this encounter [facility] 08-15-2022 Miscellaneous Notes Spoke to Pt [...] for this procedure: low risk. Reference from [facility] Humid System Operator: [email or web address]/ [email or web address] STAFF SIGNATURE: Jonathan Brasher MD DATE: August [...] by mouth once daily. flash glucose sensor (QuotefishSTYLE MARY ANN 2 SENSOR) kit Check glucose [...] CONTACT INFORMATION: Best way to reach patient [phone] SCHEDULING: Date: 10/28/2022 (Specific requests must be [...] BASIS OF THE REQUEST: per study ACTG 192 (Note: Requests for random organ biopsies, specifically liver and kidney random biopsies do not need imaging.) IMAGING: n/a (If the imaging was obtained outside the [facility] system, PLEASE upload for review prior to approval.) Note to all persons requesting biopsies: All biopsy requests will be scheduled as quickly as possible, based on the clinical urgency, availability of appointment times, the need to hold anti-thrombolytic therapy (aspirin and other blood thinners) and the patient s schedule, including the need for an available laundry route driver. If a percutaneous biopsy or drainage is not felt to be safe or an alternative method for establishing a diagnosis is possible, this will be discussed directly with the requesting physician. documented in this encounter [facility] 08-05-2022 History of Present illness Narrative Summary: ACTG 1920/20-998 Cycle 27 day 28 visit ACTG 1920 20-998 A phase 1b study of the pharmacokinetics, safety and efficacy of orally administered [id number] in subjects with refractory chronic myeloid leukemia [...] pain to left hand. Pt was prescribed [place] but he never got it filled. He [...] floaters in both eyes (eye exam 05/05) [id number] Active no medication or treatment Diabetes 12/2019 Active controlled with medication Rash 11/2019 Active uncontrolled,medication to start 05/29/2020 PAST SURGICAL HISTORY Procedure Laterality Date BACK SURGERY HX Prior to 03/2012 L4 and L5 infusion HI ANESTH,KNEE JOINT; NOS right Prior to 03/2012Prior [...] 12/2014 -- 03/2016 Bosutinib 03/2016 - 05/02/2017 [facility] 2915 15-875 trial of Ponatinib 05/21/2017 - [...] 14 units sq at dinner 05/2022 Diabetes [place] 5/325 mg 1 tab PO x 1 [...] treat: no. Outcome:resolved. Constipation Grade 1 Unrelated Startdate:06/22/20.Resolved:06/23/19 21. Drugs used to treat: no. Outcome: resolved. [...] HQP on 08/06/2022 every other day. Lot# [id number] Patient aware next appointment is 10/30/2022 and he reports he has [facility] for appointments. Patient presented today to participate [...] nurse's contact information and after hours fellows conditioning yard supervisor. Patient understands that this participation is voluntary and that he may withdraw at any time during the trial. ОЛЬГА Cabrera, RN documented in this encounter [facility] 07-30-2022 History of Present illness Narrative Images from the original note were not included. DIABETES SELF-MANAGEMENT EDUCATION AND SUPPORT Location: [place] Type of visit: In person individual Types [...] Type 2 What year were you diagnosed? 2020 Does anyone in your family have diabetes? yes mother father and grandfather How do you learn best? 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 Support System: How often does someone help [...] 10:13 AM PAGER: documented in this encounter [facility] 07-26-2022 History of Present illness Narrative IRB# [id number] /[facility]# ARIA [id number] : Study Description A Randomized, Open-label, Phase 2 Trial of Ponatinib in Patients with Resistant Chronic Phase Chronic Myeloid Leukemia to Characterize the Efficacy and Safety of a Range of Doses Derrell Avitia JR [id number] Survival/Autocad Designer Follow Up Call Autocad Designer Follow Up performed every 12 Weeks +- 2 weeks Chart Review for survival performed Raheem Santos, Research Coordinator . Patient was last seen in clinic on 07/15/2022 by Clare Dalal APRN.CONDENSER TESTER. Next survival f/u due 10/07/2022. Raheem Santos, Research Coordinator documented in this encounter [facility] 07-15-2022 Instructions Kylee Dalal APRN.CONDENSER TESTER - 07/15/2022 4:05 PM EST Plan Continue: [...] in 3 months documented in this encounter [facility] 07-15-2022 History of Present illness Narrative [...] dose. Medical Supplies and DME - Insulin [place]-Syringes and Admin Supplies meloxicam (MOBIC) 7.5 mg tablet meloxicam 7.5 mg tablet NSAID Analgesics (DE SOUZA Non-Specific) - Oxicam Derivatives omega-3 acid ethyl esters (LOVAZA) 1 gram capsule Take 2 capsules by mouth twice daily. Antihyperlipidemic - George-3 Fatty Acid Type Physical Activity: Sedentary Diet: [...] Desk Reference: National Heart, Lung, and Blood Bitely. National Institutes of Health. 2001: NIH Publication No. 330. HDL Cholesterol Date Value Ref Range Status 05/13/2022 38 (L) >39 mg/dL Final Comment: 40-59 mg/dL, Acceptable >59 mg/dL, High: Negative risk factor for coronary heart disease <40 mg/dL, Low: Positive risk factor for coronary heart disease Reference: 1. National Cholesterol Education Program ATP III Guideline At-A-Glance Quick Desk Reference: National Heart, Lung, and Blood Bitely. National Institutes of Health. 2001: NIH Publication No. . LDL Cholesterol Date Value [...] Desk Reference: National Heart, Lung, and Blood Bitely. National Institutes of Health. 2001: NIH Publication No. . -- This patient is not on target. [...] time of the patient encounter Kylee Dalal APRN.CONDENSER TESTER (Signed electronically to expedite mailing) documented in this encounter [facility] 05-07-2022 Miscellaneous Notes Sensor placed at front office supervisor. Patient notified Patient states he does not have Freestyle mary ann sensor. He is requesting call back to be advised if ENDO has sample freestyle sensor device patient can use until next sensor can be covered by pt insurance. Please advise. Ph.[phone] documented in this encounter [facility] 03-19-2022 Instructions Kylee Dalal APRN.CONDENSER TESTER - 03/19/2022 1:06 PM EDT Plan Continue [...] in 3 months documented in this encounter [facility] 03-19-2022 History of Present illness Narrative Endocrinology Initial Diabetes Assessment Derrell Avitia JR is here for a consultation regarding: DM Type 2 My final recommendations will be communicated back to the requesting physician by way of shared Medical record or letter to requesting physician via US mail. PCP is MD Aman Bradford MD ([facility]) [address] [place] [address] History of Present Illness Derrell Avitia JR [...] dose. Medical Supplies and DME - Insulin [place]-Syringes and Admin Supplies meloxicam (MOBIC) 7.5 mg tablet meloxicam 7.5 mg tablet NSAID Analgesics (DE SOUZA Non-Specific) - Oxicam Derivatives omega-3 acid ethyl esters (LOVAZA) 1 gram capsule Take 2 capsules by mouth twice daily. Antihyperlipidemic - George-3 Fatty Acid Type Physical Activity: Sedentary Diet: [...] Desk Reference: National Heart, Lung, and Blood Bitely. National Institutes of Health. 2001: [facility] Publication No. 3305. HDL Cholesterol Date Value Ref Range Status 02/18/2022 36 (L) >39 mg/dL Final Comment: 40-59 mg/dL, Acceptable >59 mg/dL, High: Negative risk factor for coronary heart disease <40 mg/dL, Low: Positive risk factor for coronary heart disease Reference: 1. National Cholesterol Education Program ATP III Guideline At-A-Glance Quick Desk Reference: National Heart, Lung, and Blood Bitely. National Institutes of Health. 2001: NIH Publication No. 3305. LDL Cholesterol Date Value Ref Range Status [...] Desk Reference: National Heart, Lung, and Blood Bitely. National Institutes of Health. 2001: NIH Publication No. 01-3305. -- No recent LDL, [...] time of the patient encounter Kylee Dalal APRN.CONDENSER TESTER (Signed electronically to expedite mailing) documented in this encounter [facility] 03-14-2022 History of Present illness Narrative [facility] Department of Hematologic Oncology and Blood Disorders PATIENT NAME: Derrell Hsu 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 Metaphase cytogenetics showed presence of t(9;22) in [...] pharmacokinetics, safety and efficacy of orally administered [id number] in subjects with refractory chronic myeloid leukemia [...] motor strength. Psychiatric: Memory, short term & halfway intact; no disturbance in sleep pattern and [...] > 10 years Current medication: Reviewed from [facility] and integrated in assessment and plan. Social History: He is . 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 William Howell MD PhD MPH Associate Staff Hematologic Oncology and Blood Disorders Pager [phone] Date of service: 02/18/2022 documented in this encounter [facility] 02-19-2022 History of Present illness Narrative ACTG 1920 66-030 A phase 1b study of the pharmacokinetics, safety and efficacy of orally administered PUI6914 in subjects with refractory chronic myeloid leukemia [...] appt next week for his right knee. Forestry Patrolman appt will be requested again for the patient to be seen in [place]. Patient in agreement with the plan of [...] Prior to 03/2012 L4 and L5 infusion HI ANESTH,KNEE JOINT; NOS right Prior to 03/2012Prior [...] 12/2014 -- 03/2016 Bosutinib 03/2016 - 05/02/2017 [facility] 2915 15-875 trial of Ponatinib 05/21/2017 - [...] HQP on 02/19/2022 every other day. Lot# [id number] Patient presented today to participate on the [...] nurse's contact information and after hours fellows conditioning yard supervisor. Patient understands that this participation is voluntary and that he may withdraw at any time during the trial. documented in this encounter [facility] 02-18-2022 Nurse Note Additional intake questions: Has the patient had fever, nausea, vomiting, diarrhea, constipation, fatigue for > 1 week? Yes, constipation (day of last BM 02/17/2022) and fatigue Does the patient have a decreased appetite? No Does patient want to see a Gas Operation Manager? No (yes to any of above refer patient to schedulers for dietitian appointment) ) Does patient have any new or increased numbness or tingling of extremities? No Is patient interested in fertility information? No Does patient need any prescription refills? No Does patient have an advanced directive in place? No, Patient referred to Resource Center documented in this encounter [facility] 01-17-2022 Miscellaneous Notes Spoke to pt and scheduled biopsy for 05/16/22. Order pending RADIOLOGIST REQUEST / APPROVAL FORM STAFF RADIOLOGIST:Dr Froy Hernandez MD PROCEDURE TO BE DONE UNDER: CT PROCEDURE REQUESTED: Aspiration PROCEDURE: Approved TIME SLOT NEEDED: 1 Hour Pre-procedure labs: CBC: not needed INR: not needed COVID: not needed SIR Bleeding risk category for this procedure: Low risk. Reference from [facility] Humid System Operator: [email or web address].[email or web address]/dotNet/ [email or web address] STAFF SIGNATURE: Yenifer Cox MD DATE: January [...] 2022 Time: 4:34 PM PATIENT CONTACT INFORMATION: [phone] SCHEDULING: Date: May 16, 2022 (Specific requests [...] (If the imaging was obtained outside the [facility] system, PLEASE upload for review prior to approval.) Note to all persons requesting biopsies: All biopsy requests will be scheduled as quickly as possible, based on the clinical urgency, availability of appointment times, the need to hold anti-thrombolytic therapy (aspirin and other blood thinners) and the patient s schedule, including the need for an available laundry route driver. If a percutaneous biopsy or drainage is not felt to be safe or an alternative method for establishing a diagnosis is possible, this will be discussed directly with the requesting physician. documented in this encounter [facility] 01-10-2022 History of Present illness Narrative [facility] Department of Hematologic Oncology and Blood Disorders PATIENT NAME: Derrell Hsu 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 Metaphase cytogenetics showed presence of t(9;22) in [...] pharmacokinetics, safety and efficacy of orally administered NBD2141 in subjects with refractory chronic myeloid leukemia [...] motor strength. Psychiatric: Memory, short term & halfway intact; no disturbance in sleep pattern and [...] > 10 years Current medication: Reviewed from [facility] and integrated in assessment and plan. fluocinonide [...] is . 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 William Howell MD PhD MPH Associate Staff Hematologic Oncology and Blood Disorders Pager [phone] Date of service: 11/26/2021 documented in this encounter [facility] 11-30-2021 Miscellaneous Notes Called patient to let him know that wants him to get labs done at [facility]. Patient will have BCR/ABL p210 done. Patient verbalized understanding. documented in this encounter [facility] 11-26-2021 History of Present illness Narrative ACTG 1920 20-998 A phase 1b study of the pharmacokinetics, safety and efficacy of orally administered [id number] in subjects with refractory chronic myeloid leukemia [...] Prior to 03/2012 L4 and L5 infusion HI ANESTH,KNEE JOINT; NOS right Prior to 03/2012Prior [...] 02/2013 Nilotinib 12/2014 -- 03/2016 Bosutinib 03/201605/02/2017 [facility] 2915 15-875 trial of Ponatinib 05/21/2017 - [...] HQP on 11/27/2021 every other day. Lot# [id number] Patient presented today to participate on the [...] nurse's contact information and after hours fellows conditioning yard supervisor. Patient understands that this participation is voluntary and that he may withdraw at any time during the trial. documented in this encounter [facility] 11-26-2021 Nurse Note Additional intake questions: Has the patient had fever, nausea, vomiting, diarrhea, constipation, fatigue for > 1 week? No Does the patient have a decreased appetite? No Does patient want to see a Gas Operation Manager? No (yes to any of above refer patient to schedulers for dietitian appointment) ) Does patient have any new or increased numbness or tingling of extremities? No Is patient interested in fertility information? No Does patient need any prescription refills? No Does patient have an advanced directive in place? No, Patient referred to Resource Center Electronically Signed By: Marcelino Finney LPN documented in this encounter [facility] 09-11-2021 Miscellaneous Notes Returned patients call about starting pravastatin while on the study ACTG 1919. Desean Dominique consulted and pravastatin does not interact with the study drug. Patient aware that is aware and that advised for the patient not start taking lovaza. Patient verbalized understanding. documented in this encounter [facility] 09-07-2021 Miscellaneous Notes Spoke to pt [...] procedure: low low risk. Reference from [facility] Humid System Operator: https://ccf.[employer].com/dotNet/ documents/?[email or web address] STAFF SIGNATURE: Katie Ortiz DO DATE: September [...] CONTACT INFORMATION: Best way to reach patient [phone] SCHEDULING: Date: 11/29/2021 (Specific requests must be [...] (If the imaging was obtained outside the [facility] system, PLEASE upload for review prior to approval.) Note to all persons requesting biopsies: All biopsy requests will be scheduled as quickly as possible, based on the clinical urgency, availability of appointment times, the need to hold anti-thrombolytic therapy (aspirin and other blood thinners) and the patient s schedule, including the need for an available laundry route driver. If a percutaneous biopsy or drainage is not felt to be safe or an alternative method for establishing a diagnosis is possible, this will be discussed directly with the requesting physician. documented in this encounter [facility] 09-06-2021 Miscellaneous Notes Called and spoke [...] Patient verbalized understanding. documented in this encounter [facility] 09-03-2021 History of Present illness Narrative Clinical Trial Informed Re-Consent IRB# ACTG 1920 [id number] Title: A phase 1b study of the pharmacokinetics, safety and efficacy of orally administered UEX3327 in subjects with refractory chronic myeloid leukemia (CML) Patient seen today to obtain clinical trial informed re-consent per consent version 3.0 dated 08/15/2021 approval date. Clinical coding team lead reviewed the updated consent with patient and [...] willingly signed by patient and consenting clinical coding team lead. Patient given copy of signed informed consent. Time: 1140 documented in this encounter [facility] 09-03-2021 History of Present illness Narrative ACTG 1920 20-998 A phase 1b study of the pharmacokinetics, safety and efficacy of orally administered CTD8998 in subjects with refractory chronic myeloid leukemia [...] Prior to 03/2012 L4 and L5 infusion HI ANESTH,KNEE JOINT; NOS right Prior to 03/2012Prior [...] 02/2013 Nilotinib 12/2014 -- 03/2016 Bosutinib 03/201605/02/2017 [facility] 2915 15-875 trial of Ponatinib 05/21/2017 - [...] 30 mg of HQP on 09/04/2021 Lot# [id number] Patient presented today to participate on the [...] nurse's contact information and after hours fellows conditioning yard supervisor. Patient understands that this participation is voluntary and that he may withdraw at any time during the trial. documented in this encounter [facility] Evaluation note Diagnosis CML (chronic myeloid [...] [facility] information available[facility]: Evaluation note* Diagnosis CML [...] having achieved remission [facility] Diagnosis CML (chronic myeloid leukemia) (HCC)- Primary Chronic myeloid leukemia, without mention of having achieved remission [facility] Diagnosis CML (chronic myeloid leukemia) (HCC)- Primary Chronic myeloid leukemia, without mention of having achieved remission [facility] Diagnosis CML (chronic myelocytic leukemia) (HCC)- Primary Chronic myeloid leukemia, without mention of having achieved remission documented [facility]InstructionsNot on filedocumented in this encounterGlenbeigh HospitalReason for referral (narrative)* Outpatient Procedure (Routine) - Pending Review Specialty Diagnoses / Procedures Referred By Contbryan metzger [facility] Diagnoses CML (chronic myeloid leukemia) (HCC) Procedures ECHO ECHO TTHRC R-T 2D W/WOM-MODE COMPL SPEC&[place] [address] [place] [address] [facility] [place] [address] Referral ID Status Reason Start Date Expiration Date Visits Requested Visits Authorized [id number] Pending Review Auto-Generat ed Referral 09/10/2021 09/10/2022 1 1 * Outpatient Procedure (Routine) - Pending Review Specialty Diagnoses / Procedures Referred By Contac t Referred To [facility] [place] Diagnoses CML (chronic myeloid leukemia) (HCC) Procedures ECG COMPLETE ECG ROUTINE ECG W/LEAST 12 LDS W/I&[place] [address] [place] [address] [facility] [place] [address] Referral ID Status Reason Start Date Expiration Date Visits Requested Visits Authorized [id number] Pending Review Auto-Generat ed Referral 09/10/2021 09/10/2022 1 1 [facility] for referral (narrative)* Outpatient Procedure (Routine) - Authorized Specialty Diagnoses / Procedures Referred By Contac t Referred To [facility] [place] Diagnoses CML (chronic myeloid leukemia) (HCC) Procedures ECG COMPLETE ECG ROUTINE ECG W/LEAST 12 LDS W/I&R [place] [address] [place] [address] [facility] [address] [address] Referral ID Status Reason Start Date Expiration Date Visits Requested Visits Authorized [id number] Authorized Auto-Generat ed Referral 11/27/2021 11/26/2022 1 1 * Outpatient Procedure (Routine) - Authorized Specialty Diagnoses / Procedures Referred By Contac t Referred To Contact [facility] [place] Diagnoses CML (chronic myeloid leukemia) (HCC) Procedures ECHO ECHO TTHRC R-T 2D W/WOM-MODE COMPL SPEC&COLR [place] [address] [place] [address] [facility] [place] [address] [place] [id number] Referral ID Status Reason Start Date Expiration Date Visits Requested Visits Authorized [id number] Authorized Auto-Generat ed Referral 11/27/2021 11/26/2022 1 1 [facility] for referral (narrative)* Outpatient Procedure (Routine) - Pending Review Specialty Diagnoses / Procedures Referred By Contac t Referred To [facility] [place] Diagnoses CML (chronic myeloid leukemia) (HCC) Procedures ECG COMPLETE ECG ROUTINE ECG W/LEAST 12 LDS W/I&[place] [address] [place] [address] [facility] [address] [address] Referral ID Status Reason Start Date Expiration Date Visits Requested Visits Authorized [id number] Pending Review Auto-Generat ed Referral 12/04/2021 12/03/2022 1 1 [facility] for referral (narrative)* Outpatient Procedure (Routine) - Pending Review Specialty Diagnoses / Procedures Referred By Contac t Referred To Contact [facility] [place] Diagnoses CML (chronic myeloid leukemia) (HCC) Procedures ECHO ECHO TTHRC R-T 2D W/WOM-MODE COMPL SPEC&COLR D [place] [address] [place] [address] [facility] [address] [address] Referral ID Status Reason Start Date Expiration Date Visits Requested Visits Authorized [id number] Pending Review Auto-Generat ed Referral 01/14/2022 01/10/2023 1 1 [facility] for referral (narrative)* Outpatient Procedure (Routine) - Pending Review Specialty Diagnoses / Procedures Referred By Contac t Referred To Contact [facility] [place] Diagnoses CML (chronic myelocytic leukemia) (HCC) Procedures ECHO ECHO TTHRC R-T 2D W/WOM-MODE COMPL SPEC&COLR [place] [address] [place] [address] [facility] [address] [address] Referral ID Status Reason Start Date Expiration Date Visits Requested Visits Authorized [id number] Pending Review Auto-Generat ed Referral 05/10/2023 1 1 [facility] for referral (narrative)* Outpatient Procedure (Routine) - Pending Review Specialty Diagnoses / Procedures Referred By Contac t Referred To Contact [facility] [place] Diagnoses CML (chronic myeloid leukemia) (HCC) Procedures ECHO ECHO TTHRC R-T 2D W/WOM-MODE COMPL SPEC&COLR D [place] [address] [place] [address] [address] Referral ID Status Reason Start Date Expiration Date Visits Requested Visits Authorized [id number] Pending Review Auto-Generat ed Referral 12/05/2022 12/04/2023 1 1 [facility] for referral (narrative)* Outpatient Procedure (Routine) - Pending Review Specialty Diagnoses / Procedures Referred By Contac t Referred To Contact [facility] Diagnoses Chronic myeloid leukemia (HCC) Procedures ECHO ECHO TTHRC R-T 2D W/WOM-MODE COMPL SPEC&[place] [address] [place] [id number] [address] Referral ID Status Reason Start Date Expiration Date Visits Requested Visits Authorized [id number] Pending Review Auto-Generat ed Referral 01/23/2023 01/22/2024 1 1 * Outpatient Procedure (Routine) - Pending Review Specialty Diagnoses / Procedures Referred By Contac t Referred To Contact [facility] [place] Diagnoses Chronic myeloid leukemia (HCC) Procedures ECG COMPLETE ECG ROUTINE ECG W/LEAST 12 LDS W/I&R [place] [address] [place] [id number] [address] Referral ID Status Reason Start Date Expiration Date Visits Requested Visits Authorized [id number] Pending Review Auto-Generat ed Referral 04/16/2023 01/22/2024 1 1 * Outpatient Procedure (Routine) - Pending Review Specialty Diagnoses / Procedures Referred By Contac t Referred To Contact [facility] [place] Diagnoses Chronic myeloid leukemia (HCC) Procedures ECG COMPLETE ECG ROUTINE ECG W/LEAST 12 LDS W/I&R William Howell MD, PhD [id number] [place], [place] [id number] [address] [address] Referral ID Status Reason Start Date Expiration Date Visits Requested Visits Authorized [id number] Pending Review Auto-Generat ed Referral 04/16/2023 01/22/2024 1 1 * Outpatient Procedure (Routine) - Pending Review Specialty Diagnoses / Procedures Referred By Contac t Referred To [facility] Diagnoses Chronic myeloid leukemia (HCC) Procedures ECG COMPLETE ECG ROUTINE ECG W/LEAST 12 LDS W/I&R William Howell MD, PhD [id number] [place] [address] [address] Referral ID Status Reason Start Date Expiration Date Visits Requested Visits Authorized [id number] Pending Review Auto-Generat ed Referral 04/16/2023 01/22/2024 1 1 [facility] for referral (narrative)* Outpatient Procedure (Routine) - Pending Review Specialty Diagnoses / Procedures Referred By Contac t Referred To Contact [facility] Diagnoses Chronic myeloid leukemia (HCC) Procedures ECG COMPLETE ECG ROUTINE ECG W/LEAST 12 LDS W/I&[place] [address] [place] [address] [facility] [address] [place] [address] Referral ID Status Reason Start Date Expiration Date Visits Requested Visits Authorized [id number] Pending Review Auto-Generat ed Referral 12/24/2023 08/19/2024 1 1 * Outpatient Procedure (Routine) - Pending Review Specialty Diagnoses / Procedures Referred By Contac t Referred To Contact [facility] Diagnoses Chronic myeloid leukemia (HCC) Procedures ECG COMPLETE ECG ROUTINE ECG W/LEAST 12 LDS W/I&[place] [address] [place] [address] [address] Referral ID Status Reason Start Date Expiration Date Visits Requested Visits Authorized [id number] Pending Review Auto-Generat ed Referral 12/24/2023 08/19/2024 1 1 * Outpatient Procedure (Routine) - Pending Review Specialty Diagnoses / Procedures Referred By Contac t Referred To [facility] Diagnoses Chronic myeloid leukemia (HCC) Procedures ECG COMPLETE ECG ROUTINE ECG W/LEAST 12 LDS W/I&[place] [address] [place] [address] [address] Referral ID Status Reason Start Date Expiration Date Visits Requested Visits Authorized [id number] Pending Review Auto-Generat ed Referral 12/24/2023 08/19/2024 1 1 * Outpatient Procedure (Routine) - Pending Review Specialty Diagnoses / Procedures Referred By Contac t Referred To Contact [facility] [place] Diagnoses Chronic myeloid leukemia (HCC) Procedures ECHO ECHO TTHRC R-T 2D W/WOM-MODE COMPL SPEC&COLR [place] [address] [place] [address] [facility] [place] [address] [place] [address] Referral ID Status Reason Start Date Expiration Date Visits Requested Visits Authorized [id number] Pending Review Auto-Generat ed Referral 12/24/2023 08/19/2024 1 1 [facility] for visit Narrative* Outpatient Procedure (Routine) - Closed Specialty Diagnoses / Procedures Referred By Contac t Referred To Contact [facility] [place] Diagnoses CML (chronic myeloid leukemia) (HCC) Procedures ECHO TTE W/DOPPLER, COMPLETE Connie Burns, NEON PUMPER.CONDENSER TESTER [address] [place] [address] [facility] [place] [address] [place] [id number] Referral ID Status Reason Start Date Expiration Date V isits Requested Visits Authorized [id number] Closed Auto-Generate d Referral 06/06/2021 06/06/2022 1 1 [facility] Medications Administered Section Inactive Administered Medications - up to 3 most recent administrations Medication Order MAR Action Action Date Dose Rate Site INV [id number] 30 mg TABLET (IRB ACTG 1920/20-998) 30 [...] FoundDocuments on File Type Date Recorded 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 Grinder Expl anation Advance Directive(s) 05/19/2021 11:26 AM Advance Directive(s) 12/21/2020 1:15 PM Advance Directive(s) 09/14/2020 4:15 PM Advance Directive(s) 04/28/2020 10:31 AM Advance Directive(s) 07/27/2019 2:14 PM Advance Directive(s) 04/21/2018 2:12 PM Advance Directive(s) 04/24/2017 9:30 AM Advance Directive(s) 03/15/2016 7:50 AM Advance Directive(s) 03/12/2016 11:21 AM Documents on File Type Date Recorded 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 Expl anation Advance Directive(s) 05/19/2021 11:26 AM Advance Directive(s) 12/21/2020 1:15 PM Advance Directive(s) 09/14/2020 4:15 PM Advance Directive(s) 04/28/2020 10:31 AM Advance Directive(s) 07/27/2019 2:14 PM Advance Directive(s) 04/21/2018 2:12 PM Advance Directive(s) 04/24/2017 9:30 AM Advance Directive(s) 03/15/2016 7:50 AM Advance Directive(s) 03/12/2016 11:21 AM Documents on File Type Date Recorded 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 Grinder Expl anation Advance Directive(s) 11/15/2021 2:15 PM Advance Directive(s) 05/19/2021 11:26 AM Advance Directive(s) 12/21/2020 1:15 PM Advance Directive(s) 09/14/2020 4:15 PM Advance Directive(s) 04/28/2020 10:31 AM Advance Directive(s) 07/27/2019 2:14 PM Advance Directive(s) 04/21/2018 2:12 PM Advance Directive(s) 04/24/2017 9:30 AM Advance Directive(s) 03/15/2016 7:50 AM Advance Directive(s) 03/12/2016 11:21 AM Documents on File Type Date Recorded 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 Grinder Expl anation Advance Directive(s) 11/15/2021 2:15 PM [...] (HCC) Procedures CONSULT TO DIABETES EDUCATION OFFICE/OUTPATIENT [facility] MDM 60-74 MINUTES Kylee Dalal, JEANNIE.CONDENSER TESTER [address] [place] [address] Referral ID Status Reason Start Date Expiration Date Visits Requested Visits Authorized [id number] Authorized PCP Requested Referral 2 03/19/2023 1 1 Summary Purpose Family History No Family History Records Found Relationship Condition Age at Onset Recorded Date/T rashad father Diabetes mellitus Unknown Hypertension Unknown mother Hypertension Unknown Diabetes mellitus Unknown Chief Complaint and Reason for Visit Chief Complaint m25.511 Additional Source Comments Source Comments (unrecognize d section and content) In the event this informatio n is protected by the Federal Confidentiality of Alcohol and Drug Abuse Patient Records regulations: The Federal rules restrict any use of the information to criminally investigate or prosecute any alcohol or drug abuse patient.[facility] the event this information is protected by the Federal Confidentiality of Alcohol and Drug Abuse Patient Records regulations: The Federal rules restrict any use of the information to criminally investigate or prosecute any alcohol or drug abuse patient.[facility] HospitalIn the event this information is protected by the Federal Confidentiality of Alcohol and Drug Abuse Patient Records regulations: The Federal rules restrict any use of the information to criminally investigate or prosecute any alcohol or drug abuse patient.[facility] HospitalIn the event this information is protected by the Federal Confidentiality of Alcohol and Drug Abuse Patient Records regulations: The Federal rules restrict any use of the information to criminally investigate or prosecute any alcohol or drug abuse patient.[facility] HospitalIn the event this information is protected by the Federal Confidentiality of Alcohol and Drug Abuse Patient Records regulations: The Federal rules restrict any use of the information to criminally investigate or prosecute any alcohol or drug abuse patient.[facility] HospitalIn the event this information is protected by the Federal Confidentiality of Alcohol and Drug Abuse Patient Records regulations: The Federal rules restrict any use of the information to criminally investigate or prosecute any alcohol or drug abuse patient.[facility] HospitalIn the event this information is protected by the Federal Confidentiality of Alcohol and Drug Abuse Patient Records regulations: The Federal rules restrict any use of the information to criminally investigate or prosecute any alcohol or drug abuse patient.[facility] HospitalIn the event this information is protected by the Federal Confidentiality of Alcohol and Drug Abuse Patient Records regulations: The Federal rules restrict any use of the information to criminally investigate or prosecute any alcohol or drug abuse patient.[facility] HospitalIn the event this information is protected by the Federal Confidentiality of Alcohol and Drug Abuse Patient Records regulations: The Federal rules restrict any use of the information to criminally investigate or prosecute any alcohol or drug abuse patient.[facility] HospitalIn the event this information is protected by the Federal Confidentiality of Alcohol and Drug Abuse Patient Records regulations: The Federal rules restrict any use of the information to criminally investigate or prosecute any alcohol or drug abuse patient.[facility] HospitalIn the event this information is protected by the Federal Confidentiality of Alcohol and Drug Abuse Patient Records regulations: The Federal rules restrict any use of the information to criminally investigate or prosecute any alcohol or drug abuse patient.[facility] HospitalIn the event this information is protected by the Federal Confidentiality of Alcohol and Drug Abuse Patient Records regulations: The Federal rules restrict any use of the information to criminally investigate or prosecute any alcohol or drug abuse patient.[facility] HospitalIn the event this information is protected by the Federal Confidentiality of Alcohol and Drug Abuse Patient Records regulations: The Federal rules restrict any use of the information to criminally investigate or prosecute any alcohol or drug abuse patient.[facility] HospitalIn the event this information is protected by the Federal Confidentiality of Alcohol and Drug Abuse Patient Records regulations: The Federal rules restrict any use of the information to criminally investigate or prosecute any alcohol or drug abuse patient.[facility] HospitalIn the event this information is protected by the Federal Confidentiality of Alcohol and Drug Abuse Patient Records regulations: The Federal rules restrict any use of the information to criminally investigate or prosecute any alcohol or drug abuse patient.[facility] HospitalIn the event this information is protected by the Federal Confidentiality of Alcohol and Drug Abuse Patient Records regulations: The Federal rules restrict any use of the information to criminally investigate or prosecute any alcohol or drug abuse patient.[facility] HospitalIn the event this information is protected by the Federal Confidentiality of Alcohol and Drug Abuse Patient Records regulations: The Federal rules restrict any use of the information to criminally investigate or prosecute any alcohol or drug abuse patient.[facility] HospitalIn the event this information is protected by the Federal Confidentiality of Alcohol and Drug Abuse Patient Records regulations: The Federal rules restrict any use of the information to criminally investigate or prosecute any alcohol or drug abuse patient.[facility] HospitalIn the event this information is protected by the Federal Confidentiality of Alcohol and Drug Abuse Patient Records regulations: The Federal rules restrict any use of the information to criminally investigate or prosecute any alcohol or drug abuse patient.[facility] HospitalIn the event this information is protected by the Federal Confidentiality of Alcohol and Drug Abuse Patient Records regulations: The Federal rules restrict any use of the information to criminally investigate or prosecute any alcohol or drug abuse patient.[facility] HospitalIn the event this information is protected by the Federal Confidentiality of Alcohol and Drug Abuse Patient Records regulations: The Federal rules restrict any use of the information to criminally investigate or prosecute any alcohol or drug abuse patient.[facility] HospitalIn the event this information is protected by the Federal Confidentiality of Alcohol and Drug Abuse Patient Records regulations: The Federal rules restrict any use of the information to criminally investigate or prosecute any alcohol or drug abuse patient.[facility] HospitalIn the event this information is protected by the Federal Confidentiality of Alcohol and Drug Abuse Patient Records regulations: The Federal rules restrict any use of the information to criminally investigate or prosecute any alcohol or drug abuse patient.[facility] HospitalIn the event this information is protected by the Federal Confidentiality of Alcohol and Drug Abuse Patient Records regulations: The Federal rules restrict any use of the information to criminally investigate or prosecute any alcohol or drug abuse patient.[facility] HospitalIn the event this information is protected by the Federal Confidentiality of Alcohol and Drug Abuse Patient Records regulations: The Federal rules restrict any use of the information to criminally investigate or prosecute any alcohol or drug abuse patient.[facility] HospitalIn the event this information is protected by the Federal Confidentiality of Alcohol and Drug Abuse Patient Records regulations: The Federal rules restrict any use of the information to criminally investigate or prosecute any alcohol or drug abuse patient.[facility] HospitalIn the event this information is protected by the Federal Confidentiality of Alcohol and Drug Abuse Patient Records regulations: The Federal rules restrict any use of the information to criminally investigate or prosecute any alcohol or drug abuse patient.[facility] HospitalIn the event this information is protected by the Federal Confidentiality of Alcohol and Drug Abuse Patient Records regulations: The Federal rules restrict any use of the information to criminally investigate or prosecute any alcohol or drug abuse patient.[facility] HospitalIn the event this information is protected by the Federal Confidentiality of Alcohol and Drug Abuse Patient Records regulations: The Federal rules restrict any use of the information to criminally investigate or prosecute any alcohol or drug abuse patient.[facility] HospitalIn the event this information is protected by the Federal Confidentiality of Alcohol and Drug Abuse Patient Records regulations: The Federal rules restrict any use of the information to criminally investigate or prosecute any alcohol or drug abuse patient.[facility] HospitalIn the event this information is protected by the Federal Confidentiality of Alcohol and Drug Abuse Patient Records regulations: The Federal rules restrict any use of the information to criminally investigate or prosecute any alcohol or drug abuse patient.[facility] HospitalIn the event this information is protected by the Federal Confidentiality of Alcohol and Drug Abuse Patient Records regulations: The Federal rules restrict any use of the information to criminally investigate or prosecute any alcohol or drug abuse patient.[facility] HospitalIn the event this information is protected by the Federal Confidentiality of Alcohol and Drug Abuse Patient Records regulations: The Federal rules restrict any use of the information to criminally investigate or prosecute any alcohol or drug abuse patient.[facility] HospitalIn the event this information is protected by the Federal Confidentiality of Alcohol and Drug Abuse Patient Records regulations: The Federal rules restrict any use of the information to criminally investigate or prosecute any alcohol or drug abuse patient.[facility] HospitalIn the event this information is protected by the Federal Confidentiality of Alcohol and Drug Abuse Patient Records regulations: The Federal rules restrict any use of the information to criminally investigate or prosecute any alcohol or drug abuse patient.[facility] HospitalIn the event this information is protected by the Federal Confidentiality of Alcohol and Drug Abuse Patient Records regulations: The Federal rules restrict any use of the information to criminally investigate or prosecute any alcohol or drug abuse patient.[facility] HospitalIn the event this information is protected by the Federal Confidentiality of Alcohol and Drug Abuse Patient Records regulations: The Federal rules restrict any use of the information to criminally investigate or prosecute any alcohol or drug abuse patient.[facility] HospitalIn the event this information is protected by the Federal Confidentiality of Alcohol and Drug Abuse Patient Records regulations: The Federal rules restrict any use of the information to criminally investigate or prosecute any alcohol or drug abuse patient.[facility] HospitalIn the event this information is protected by the Federal Confidentiality of Alcohol and Drug Abuse Patient Records regulations: The Federal rules restrict any use of the information to criminally investigate or prosecute any alcohol or drug abuse patient.[facility] HospitalIn the event this information is protected by the Federal Confidentiality of Alcohol and Drug Abuse Patient Records regulations: The Federal rules restrict any use of the information to criminally investigate or prosecute any alcohol or drug abuse patient.[facility] HospitalIn the event this information is protected by the Federal Confidentiality of Alcohol and Drug Abuse Patient Records regulations: The Federal rules restrict any use of the information to criminally investigate or prosecute any alcohol or drug abuse patient.[facility] HospitalIn the event this information is protected by the Federal Confidentiality of Alcohol and Drug Abuse Patient Records regulations: The Federal rules restrict any use of the information to criminally investigate or prosecute any alcohol or drug abuse patient.[facility] HospitalIn the event this information is protected by the Federal Confidentiality of Alcohol and Drug Abuse Patient Records regulations: The Federal rules restrict any use of the information to criminally investigate or prosecute any alcohol or drug abuse patient.[facility] HospitalIn the event this information is protected by the Federal Confidentiality of Alcohol and Drug Abuse Patient Records regulations: The Federal rules restrict any use of the information to criminally investigate or prosecute any alcohol or drug abuse patient.[facility] HospitalIn the event this information is protected by the Federal Confidentiality of Alcohol and Drug Abuse Patient Records regulations: The Federal rules restrict any use of the information to criminally investigate or prosecute any alcohol or drug abuse patient.[facility] HospitalIn the event this information is protected by the Federal Confidentiality of Alcohol and Drug Abuse Patient Records regulations: The Federal rules restrict any use of the information to criminally investigate or prosecute any alcohol or drug abuse patient.[facility] HospitalIn the event this information is protected by the Federal Confidentiality of Alcohol and Drug Abuse Patient Records regulations: The Federal rules restrict any use of the information to criminally investigate or prosecute any alcohol or drug abuse patient.[facility] HospitalIn the event this information is protected by the Federal Confidentiality of Alcohol and Drug Abuse Patient Records regulations: The Federal rules restrict any use of the information to criminally investigate or prosecute any alcohol or drug abuse patient.[facility] HospitalIn the event this information is protected by the Federal Confidentiality of Alcohol and Drug Abuse Patient Records regulations: The Federal rules restrict any use of the information to criminally investigate or prosecute any alcohol or drug abuse patient.[facility] HospitalIn the event this information is protected by the Federal Confidentiality of Alcohol and Drug Abuse Patient Records regulations: The Federal rules restrict any use of the information to criminally investigate or prosecute any alcohol or drug abuse patient.[facility] HospitalIn the event this information is protected by the Federal Confidentiality of Alcohol and Drug Abuse Patient Records regulations: The Federal rules restrict any use of the information to criminally investigate or prosecute any alcohol or drug abuse patient.[facility] HospitalIn the event this information is protected by the Federal Confidentiality of Alcohol and Drug Abuse Patient Records regulations: The Federal rules restrict any use of the information to criminally investigate or prosecute any alcohol or drug abuse patient.[facility] HospitalIn the event this information is protected by the Federal Confidentiality of Alcohol and Drug Abuse Patient Records regulations: The Federal rules restrict any use of the information to criminally investigate or prosecute any alcohol or drug abuse patient.[facility] HospitalIn the event this information is protected by the Federal Confidentiality of Alcohol and Drug Abuse Patient Records regulations: The Federal rules restrict any use of the information to criminally investigate or prosecute any alcohol or drug abuse patient.[facility] HospitalIn the event this information is protected by the Federal Confidentiality of Alcohol and Drug Abuse Patient Records regulations: The Federal rules restrict any use of the information to criminally investigate or prosecute any alcohol or drug abuse patient.[facility] HospitalIn the event this information is protected by the Federal Confidentiality of Alcohol and Drug Abuse Patient Records regulations: The Federal rules restrict any use of the information to criminally investigate or prosecute any alcohol or drug abuse patient.[facility] HospitalIn the event this information is protected by the Federal Confidentiality of Alcohol and Drug Abuse Patient Records regulations: The Federal rules restrict any use of the information to criminally investigate or prosecute any alcohol or drug abuse patient.[facility] HospitalIn the event this information is protected by the Federal Confidentiality of Alcohol and Drug Abuse Patient Records regulations: The Federal rules restrict any use of the information to criminally investigate or prosecute any alcohol or drug abuse patient.[facility] HospitalIn the event this information is protected by the Federal Confidentiality of Alcohol and Drug Abuse Patient Records regulations: The Federal rules restrict any use of the information to criminally investigate or prosecute any alcohol or drug abuse patient.[facility] HospitalIn the event this information is protected by the Federal Confidentiality of Alcohol and Drug Abuse Patient Records regulations: The Federal rules restrict any use of the information to criminally investigate or prosecute any alcohol or drug abuse patient.[facility] HospitalIn the event this information is protected by the Federal Confidentiality of Alcohol and Drug Abuse Patient Records regulations: The Federal rules restrict any use of the information to criminally investigate or prosecute any alcohol or drug abuse patient.[facility] HospitalIn the event this information is protected by the Federal Confidentiality of Alcohol and Drug Abuse Patient Records regulations: The Federal rules restrict any use of the information to criminally investigate or prosecute any alcohol or drug abuse patient.[facility] HospitalIn the event this information is protected by the Federal Confidentiality of Alcohol and Drug Abuse Patient Records regulations: The Federal rules restrict any use of the information to criminally investigate or prosecute any alcohol or drug abuse patient.[facility] HospitalIn the event this information is protected by the Federal Confidentiality of Alcohol and Drug Abuse Patient Records regulations: The Federal rules restrict any use of the information to criminally investigate or prosecute any alcohol or drug abuse patient.[facility] HospitalIn the event this information is protected by the Federal Confidentiality of Alcohol and Drug Abuse Patient Records regulations: The Federal rules restrict any use of the information to criminally investigate or prosecute any alcohol or drug abuse patient.[facility] HospitalIn the event this information is protected by the Federal Confidentiality of Alcohol and Drug Abuse Patient Records regulations: The Federal rules restrict any use of the information to criminally investigate or prosecute any alcohol or drug abuse patient.[facility] HospitalIn the event this information is protected by the Federal Confidentiality of Alcohol and Drug Abuse Patient Records regulations: The Federal rules restrict any use of the information to criminally investigate or prosecute any alcohol or drug abuse patient.[facility] HospitalIn the event this information is protected by the Federal Confidentiality of Alcohol and Drug Abuse Patient Records regulations: The Federal rules restrict any use of the information to criminally investigate or prosecute any alcohol or drug abuse patient.[facility] HospitalIn the event this information is protected by the Federal Confidentiality of Alcohol and Drug Abuse Patient Records regulations: The Federal rules restrict any use of the information to criminally investigate or prosecute any alcohol or drug abuse patient.[facility] HospitalIn the event this information is protected by the Federal Confidentiality of Alcohol and Drug Abuse Patient Records regulations: The Federal rules restrict any use of the information to criminally investigate or prosecute any alcohol or drug abuse patient.[facility] HospitalIn the event this information is protected by the Federal Confidentiality of Alcohol and Drug Abuse Patient Records regulations: The Federal rules restrict any use of the information to criminally investigate or prosecute any alcohol or drug abuse patient.[facility] HospitalIn the event this information is protected by the Federal Confidentiality of Alcohol and Drug Abuse Patient Records regulations: The Federal rules restrict any use of the information to criminally investigate or prosecute any alcohol or drug abuse patient.[facility] Reason for Visit (unrecogniz ed section and content) Reason Comments Research ACTG 192 / IRB 98 cycle 18 day 28 Specialty Diagnoses / Procedures Referred By Contac t Referred To Contact HEMATOLOGY/ONCOLOGY Diagnoses study pt irb#20-998(actg 1920 c92.10 nct# date time per slip emma Procedures NURSE RESEARCH 2 [place] [address] [place] [address] Emma Tuttle, RN [address] [place] [address] Referral ID Status Reason Start Date Expiration Date Visits Re quested Visits Authorized [id number] Closed 10/13/2020 12/12/2020 1 1 Reason Comments Research ACTG 1920 20-998 c ycle 15 day 28 Reason Comments Research ACTG 192 / IRB 98 reconsent Reason Comments Medication Problem Reason Comments Biopsy Request Reason Comments Patient Question Reason Comments Appointment Reason Comments Established Patient Specialty Diagnoses / Procedures Referred By Contac t Referred To Contact Hematology/Oncology / HEMATOLOGY/ONCOLOGY Diagnoses Chronic myeloid leukemia, BCR/ABL-positive, not having achieved remission STUDY PT IRB# 20-998 C92.10 DATE TIME PER SLIP EMMA NCT# Procedures OFFICE/OUTPATIENT ESTABLISHED MOD MDM 30-39 MIN EST PATIENT/[place] [address] [address] [place] [id number] [place] [address] [place] [address] Referral ID Status Reason Start Date Expiration Date Visits Re quested Visits Authorized [id number] Closed 11/26/2021 06/08/2022 1 1 Reason Comments Biopsy Request needed for 05/16/2022 Reason Comments Research ACTG 1920 / IRB 98 cycle 21 day 28 Specialty Diagnoses / Procedures Referred By Contac t Referred To Contact HEMATOLOGY/ONCOLOGY Diagnoses Chronic myeloid [...] ECHO PER [place] [address] [place] [address] [place] [address] [address] [place] [address] Referral ID Status Reason Start Date Expiration Date Visits Requested Visits Authorized [id number] Authorized OON/Self Pay Override 02/18/2022 06/08/2022 99 99 Specialty Diagnoses / Procedures Referred By Contac t Referred To Contact Hematology/Oncology / HEMATOLOGY/ONCOLOGY Diagnoses CML (chronic myeloid leukemia) (HCC) STUDY PT IRB# 20-998 ACT 1920 C92.10 DATE TIME PER SLIP EMMA/EFRAÍN Procedures OFFICE/OUTPATIENT ESTABLISHED MOD MDM 30-39 MIN EST PATIENT/ASMT [place] [address] [address] [id number] [place] [address] [place] [address] Referral ID Status Reason Start Date Expiration Date Visits Re quested Visits Authorized [id number] Closed 02/18/2022 06/08/2022 1 1 Reason Comments New Patient Referred by Dr. Portillo hernandez Specialty Diagnoses / Procedures Referred By Contact Referred To Contact Endocrinology / INITIAL DEPT Diagnoses CML (chronic myeloid leukemia) (HCC) Procedures CONSULT TO ENDOCRINOLOGY OFFICE/OUTPATIENT NEW HIGH MDM 60-74 MINUTES OFFICE/OUTPATIENT NEW MODERATE MDM 45-59 MINUTES [place] [address] [address] [id number] Initial Department Referral ID Status Reason Start Date Expiration Date V isits Requested Visits Authorized [id number] Closed PCP Requested Referral 03/19/2022 06/08/2022 1 1 Reason Onset Date Comments Refill Request 05/13/2022 Reason Comments Diabetes Specialty Diagnoses / Procedures Referred By Contac t Referred To Contact Endocrinology / ENDOCRINOLOGY Diagnoses 3 months (around 06/19/2022 Procedures EST DAMON PATIENT Kylee Dalal, NEON PUMPER.CONDENSER TESTER [address] [place] [address] Kylee Dalal, NEON PUMPER.CONDENSER TESTER [address] [place] [address] Referral ID Status Reason Start Date Expiration Date Visits Re quested Visits Authorized [id number] Closed 07/04/2022 06/08/2023 1 1 Reason Comments Research Study ARIA 2915/ACTG 1920 Survival Follow-up Reason Comments Diabetes Self Management Education Specialty Diagnoses / Procedures [facility] To Contact INITIAL DEPT Diagnoses Uncontrolled type 2 diabetes mellitus with hyperglycemia (HCC) Procedures CONSULT TO DIABETES EDUCATION OFFICE/OUTPATIENT NEW HIGH MDM 60-74 MINUTES MEDICAL NUTRITION ASSMT&IVNTJ INDIV EACH 15 UT OFFICE/OUTPATIENT NEW MODERATE MDM 45-59 MINUTES Kylee Dalal, NEON PUMPER.CONDENSER TESTER [address] [facility] [place] [address] Initial Department Referral ID Status Reason Start Date Expiration Date V isits Requested Visits Authorized [id number] Closed PCP Requested Referral 07/30/2022 06/08/2023 1 1 Reason Comments Research ACTG 1919/-998 Cyc le 27 day 28 visit Reason Comments Established Patient Follow-Up Specialty Diagnoses / Procedures [facility] Referred To Contact Hematology/Oncology / HEMATOLOGY/ONCOLOGY Diagnoses Chronic myeloid leukemia, BCR/ABL-positive, not having achieved remission STUDY PT IRB -8 ACTG 1920 DX - C92.10 DATE , TIME Procedures OFFICE/OUTPATIENT ESTABLISHED MOD MDM 30-39 MIN EST [place] [address] [place] [address] [place] [address] [address] [id number] Referral ID Status Reason Start Date Expiration Date Visits Re quested Visits Authorized [id number] Closed 08/05/2022 06/08/2023 1 1 Specialty Diagnoses / Procedures Referred By Contac t Referred To Contact Endocrinology / ENDOCRINOLOGY Diagnoses Follow-up exam Return in about 3 months (around 10/12/2022). Check out comments: Schedule with CDE Procedures OFFICE/OUTPATIENT ESTABLISHED MOD MDM 30-39 MIN EST DAMON PATIENT Self Kylee Dalal, NEON PUMPER.CONDENSER TESTER [address] [place] [address] Referral ID Status Reason Start Date Expiration Date Visits Re quested Visits Authorized [id number] Closed 10/15/2022 06/08/2023 1 1 Specialty Diagnoses / Procedures Referred By Contac t Referred To Contact Hematology/Oncology / HEMATOLOGY/ONCOLOGY Diagnoses Chronic myeloid leukemia, BCR/ABL-positive, not having achieved remission STUDY PT IRB 20-998/ACTG 1920 DX - C92.10 DATE , TIME Reschedule per Emma Procedures OFFICE/OUTPATIENT ESTABLISHED MOD MDM 30-39 MIN [place] [address] [place] [address] [place] [address] [place] [address] Referral ID Status Reason Start Date Expiration Date Visits Re quested Visits Authorized [id number] Closed 10/30/2022 06/08/2023 1 1 Specialty Diagnoses / Procedures Referred By Contac t Referred To Contact Hematology/Oncology / HEMATOLOGY/ONCOLOGY Diagnoses CML (chronic myeloid leukemia) (HCC) STUDY PT IRB 20-998/ACTG 1920 DX - C92.10 DATE , TIME PER SLIP EMMA Procedures OFFICE/OUTPATIENT ESTABLISHED MOD MDM 30-39 MIN EST PATIENT William Howell MD, PhD [address] [place] [address] [place] [address] [place] [address] Referral ID Status Reason Start Date Expiration Date Visits Re quested Visits Authorized [id number] Closed 12/25/2022 06/08/2023 1 1 Reason Comments Research ACTG 1919 c ycle 33 day 28 Reason Comments Research Error Reason Comments Research ARIA 2915 Survival F ollow-up Reason Comments Refill Request Reason Comments Research ACTG 1919 c ycle 36 day 28 Reason Comments IV Medication Administration Echo with D efinity Specialty Diagnoses / Procedures Referred By Yuri metzger Referred To Contact Cardiology / VASCULAR MEDICINE Diagnoses Chronic myeloid leukemia, BCR/ABL-positive, not having achieved remission STUDY PT IRB -998/ACTG 1919 DX - C92.10 DATE , TIME PER SLIP EMMA Procedures ECHO TTHRC R-T 2D W/WOM-MODE COMPL SPEC&COLR D IMAGING [place] [address] [address] [address] [address] [id number] Referral ID Status Reason Start Date Expiration Date Visits Re quested Visits Authorized [id number] Closed 04/16/2023 06/08/2023 1 1 Specialty Diagnoses / Procedures Referred By Yuri metzger Referred To Contact Hematology/Oncology / HEMATOLOGY/ONCOLOGY Diagnoses Chronic myeloid leukemia, BCR/ABL-positive, not having achieved remission STUDY PT IRB 20-998/ACTG 1920 DX - C92.10 DATE , TIME PER SLIP EMMA Procedures f/u per research study; ACTG 1919; IRB # 20-998 William Howell MD, PhD [address] [place] [address] [place] [address] [place] [address] Referral ID Status Reason Start Date Expiration Date Visits Requested Visits Authorized [id number] Pending Review OON/Self Pay Override 04/16/2023 10/13/2023 5 5 Specialty Diagnoses / Procedures Referred By Yuri t Referred To Contact Hematology/Oncology / HEMATOLOGY/ONCOLOGY Diagnoses CML (chronic myeloid leukemia) (HCC) STUDY PT IRB 20-998/ACTG 1920 DX - C92.10 DATE , TIME PER SLIP EMMA JFL Procedures OFFICE/OUTPATIENT ESTABLISHED MOD MDM 30 MIN EST PATIENT William Howell MD, PhD [address] [place] [address] [place] [address] [place] [address] Referral ID Status Reason Start Date Expiration Date Visits Re quested Visits Authorized [id number] Closed 07/09/2023 06/08/2024 1 1 Reason Comments Follow Up Specialty Diagnoses / Procedures Referred By Yuri metzger Referred To Contact Endocrinology / ENDOCRINOLOGY Diagnoses Type 2 diabetes mellitus with hyperglycemia, with long-term current use of insulin ([facility]) follow up in person 4 months Procedures OFFICE/OUTPATIENT ESTABLISHED MOD MDM 30 MIN EST DAMON PATIENT Kylee Dalal, NEON PUMPER.CONDENSER TESTER [address] [place] [address] Kylee Dalal, JEANNIE.CONDENSER TESTER [address] [place] [address] Referral ID Status Reason Start Date Expiration Date Visits Re quested Visits Authorized [id number] Closed 08/25/2023 06/08/2024 1 1 Reason Comments Research ACTG 1919 Cycle 42 D 28 Reason Comments Research ACTG 1919 / 20-998 c ycle 42 day 28 Reason Comments Research ARIA 2915 Survival F ollow-up Last Call Specialty Diagnoses / Procedures Referred By Yuri metzger Referred To Contact Hematology/Oncology / HEMATOLOGY/ONCOLOGY Diagnoses Chronic myeloid leukemia, BCR/ABL-positive, not having achieved remission STUDY PT IRB 20-998/ACTG 1920 DX - C92.10 DATE , TIME PER SLIP EMMA JFL Procedures OFFICE/OUTPATIENT ESTABLISHED MOD MDM 30 MIN EST PATIENT William Howell MD, PhD [address] [id number] [place] [address] [address] [address] Referral ID Status Reason Start Date Expiration Date Visits Re quested Visits Authorized [id number] Closed 10/01/2023 06/08/2024 1 1 Care Teams (unrecognized sec tion and content) 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 Start Date End Date [employer] [address] [place] [address] PCP - General Family Practice 09/03/21 Emma Tuttle, MOISÉS [address] [place] [address] Research Nurse Hematology/Oncology 06/05/20 [place] [address] [address] [address] Physician Hematology/Oncology 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 Start Date End Date [employer] [address] [facility] [place] [address] PCP - General Family Practice 09/03/21 Emma Tuttle RN [address] [place] [address] Research Nurse Hematology/Oncology 06/05/20 [place] [address] [place] [address] Physician Hematology/Oncology 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 Start Date End Date [address] [address] [facility] [place] [address] PCP - General Family Practice 09/03/21 Emma Tuttle, MOISÉS [address] [place] [address] Research Nurse Hematology/Oncology 06/05/20 [place] [address] [place] [address] Physician Hematology/Oncology 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 Start Date End Date [address] [address] [place] [address] PCP - General Family Practice 09/03/21 Emma Tuttle, RN [address] [place] [address] Research Nurse Hematology/Oncology 06/05/20 [place] [address] [place] [address] Physician Hematology/Oncology 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 Start Date End Date [employer] [address] [place] [address] PCP - General Family Practice 09/03/21 Emma Tuttle, RN [address] [place] [address] Research Nurse Hematology/Oncology 06/05/20 [place] [address] [place] [address] Physician Hematology/Oncology 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 Start Date End Date [address] [address] [place] [address] PCP - General Family Practice 09/03/21 Emma Tuttle, MOISÉS [address] [place] [address] Research Nurse Hematology/Oncology 06/05/20 [place] [address] [place] [address] Physician Hematology/Oncology 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 Start Date End Date [address] [address] [place] [address] PCP - General Family Practice 09/03/21 Emma Tuttle, RN [address] [place] [address] Research Nurse Hematology/Oncology 06/05/20 [place] [address] [place] [address] Physician Hematology/Oncology 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 Start Date End Date [address] [address] [place] [address] PCP - General Family Practice 09/03/21 Emma Tuttle, MOISÉS [address] [place] [address] Research Nurse Hematology/Oncology 06/05/20 [place] [address] [place] [address] Physician Hematology/Oncology 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 Start Date End Date [address] [address] [place] [address] PCP - General Family Practice 09/03/21 Emma Tuttle, MOISÉS [address] [place] [address] Research Nurse Hematology/Oncology 06/05/20 [place] [address] [place] [address] Physician Hematology/Oncology 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 Start Date End Date [address] [address] [place] [address] PCP - General Family Practice 09/03/21 Emma Tuttle, RN [address] [place] [address] Research Nurse Hematology/Oncology 06/05/20 [place] [address] [place] [address] Physician Hematology/Oncology 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 Start Date End Date [address]man [address] [place] [address] PCP - General Family Practice 09/03/21 Emma Tuttle RN [address] [place] [address] Research Nurse Hematology/Oncology 06/05/20 [place] [address] [place] [address] Physician Hematology/Oncology 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 Start Date End Date Aman Pack [address] [place] [address] PCP - General Family Practice 09/03/21 Emma Tuttle, RN [address] [place] [address] Research Nurse Hematology/Oncology 06/05/20 [place] [address] [place] [address] Physician Hematology/Oncology 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 Start Date End Date Aman Pack [address] [facility] [place] [place] [address] PCP - [facility] Practice 09/03/21 Emma Tuttle, RN [address] [place] [address] Research Nurse Hematology/Oncology 06/05/20 [place] [address] [place] [address] Physician Hematology/Oncology 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 Start Date End Date Aman Pack [address] [place] [address] PCP - General Family Practice 09/03/21 Emma Tuttle RN [address] [place] [address] Research Nurse Hematology/Oncology 06/05/20 [place] [address] [place] [address] Physician Hematology/Oncology 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 Start Date End Date Aman Pack Walter [address] [place] [address] PCP - General Family Practice 09/03/21 Emma Tuttle, MOISÉS [address] [place] [address] Research Nurse Hematology/Oncology 06/05/20 [place] [address] [place] [address] Physician Hematology/Oncology 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 Start Date End Date Aman Pack Walter [address] [place] [address] PCP - General Family Practice 09/03/21 Emma Tuttle RN [address] [place] [address] Research Nurse Hematology/Oncology 06/05/20 [place] [address] [place] [address] Physician Hematology/Oncology 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 Start Date End Date Aman Pack Walter [address] [place] [address] PCP - General Family Medicine 09/03/21 Emma Tuttle, RN [address] [place] [address] Research Nurse Hematology/Oncology 06/05/20 [place] [address] [place] [address] Physician Hematology/Oncology 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 Start Date End Date Aman Pack [address] [place] [address] PCP - General Family Medicine 09/03/21 Emma Tuttle, MOISÉS [address] [place] [address] Research Nurse Hematology/Oncology 06/05/20 [place] [address] [place] [address] Physician Hematology/Oncology 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 Start Date End Date Aman Pack [address] [place] [address] PCP - General Family Medicine 09/03/21 Emma Tuttle, MOISÉS [address] [place] [address] Research Nurse Hematology/Oncology 06/05/20 [place] [address] [place] [address] Physician Hematology/Oncology 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 Start Date End Date Aman Pack [address] [place] [address] PCP - General Family Medicine 09/03/21 Emma Tuttle, MOISÉS [address] [place] [address] Research Nurse Hematology/Oncology 06/05/20 [place] [address] [place] [address] Physician Hematology/Oncology 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 Start Date End Date Aman Pack [address] [place] [address] PCP - General Family Medicine 09/03/21 Emma Tuttle, RN [address] [place] [address] Research Nurse Hematology/Oncology 06/05/20 [place] [address] [place] [address] Physician Hematology/Oncology 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 Start Date End Date Aman Pack [address] [place] [address] PCP - General Family Medicine 09/03/21 Emma Tuttle, RN [address] [place] [address] Research Nurse Hematology/Oncology 06/05/20 [place] [address] [place] [address] Physician Hematology/Oncology 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 Start Date End Date Aman Pack [address] [place] [address] PCP - General Family Medicine 09/03/21 Emma Tuttle, RN [address] [place] [address] Research Nurse Hematology/Oncology 06/05/20 [place] [address] [place] [address] Physician Hematology/Oncology 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 Start Date End Date Aman Pack [address] [place] [address] PCP - General Family Medicine 09/03/21 Emma Tuttle, RN [address] [place] [address] Research Nurse Hematology/Oncology 06/05/20 [place] [address] [place] [address] Physician Hematology/Oncology 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 Start Date End Date Aman Pack [address] [place] [address] PCP - General Family [facility] 09/03/21 Emma Tuttle, RN [address] [place] [address] Research Nurse Hematology/Oncology 06/05/20 [place] [address] [place] [address] Physician Hematology/Oncology 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 Start Date End Date Aman Pack [address] [place] [address] PCP - General Family Medicine 09/03/21 Emma Tuttle, RN [address] [place] [address] Research Nurse Hematology/Oncology 06/05/20 [place] [address] [place] [address] Physician Hematology/Oncology 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 Start Date End Date Aman Pack [address] [place] [address] PCP - General Family Medicine 09/03/21 Emma Tuttle, RN [address] [place] [address] Research Nurse Hematology/Oncology 06/05/20 [place] [address] [place] [address] Physician Hematology/Oncology 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 Start Date End Date Aman Pack [address] [place] [address] PCP - General Family Medicine 09/03/21 Emma Tuttle, RN [address] [place] [address] Research Nurse Hematology/Oncology 06/05/20 [place] [address] [place] [address] Physician Hematology/Oncology 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 Start Date End Date Aman Pack [address] [place] [address] PCP - General Family Medicine 09/03/21 Emma Tuttle, RN [address] [place] [address] Research Nurse Hematology/Oncology 06/05/20 [place] [address] [place] [address] Physician Hematology/Oncology 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 Start Date End Date Aman Pack [address] [place] [address] PCP - General Family Medicine 09/03/21 Emma Tuttle, RN [address] [place] [address] Research Nurse Hematology/Oncology 06/05/20 [place] [address] [place] [address] Physician Hematology/Oncology 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 Start Date End Date Aman Pack [address] [place] [address] PCP - General Family Medicine 09/03/21 Emma Tuttle, RN [address] [place] [address] Research Nurse Hematology/Oncology 06/05/20 [place] [address] [place] [address] Physician Hematology/Oncology 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 Start Date End Date Aman Pack [address] [place] [address] PCP - General Family Medicine 09/03/21 Emma Tuttle, MOISÉS [address] [place] [address] Research Nurse Hematology/Oncology 06/05/20 [place] [address] [place] [address] Physician Hematology/Oncology 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 Start Date End Date Aman Pack [address] [place] [address] PCP - General Family Medicine 09/03/21 Emma Tuttle RN [address] [place] [address] Research Nurse Hematology/Oncology 06/05/20 [place] [address] [place] [address] Physician Hematology/Oncology 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 Start Date End Date Aman Pack [address] [place] [address] PCP - General Family Medicine 09/03/21 Emma Tuttle, MOISÉS [address] [place] [address] Research Nurse Hematology/Oncology 06/05/20 [place] [address] [place] [address] Physician Hematology/Oncology 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 Start Date End Date Aman Pack [address] [place] [address] PCP - General Family [facility] 09/03/21 Emma Tuttle RN [address] [place] [address] Research Nurse Hematology/Oncology 06/05/20 [place] [address] [place] [address] Physician Hematology/Oncology 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 Start Date End Date Aman Pack [address] [place] [address] PCP - General Family [facility] 09/03/21 Emma Tuttle RN [address] [place] [address] Research Nurse Hematology/Oncology 06/05/20 [place] [address] [place] [address] Physician Hematology/Oncology 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 Start Date End Date Aman Pack [address] [place] [address] PCP - General Family [facility] 09/03/21 Emma Tuttle, RN [address] [place] [address] Research Nurse Hematology/Oncology 06/05/20 [place] [address] [place] [address] Physician Hematology/Oncology 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 Start Date End Date Aman Pack [address] [place] [address] PCP - [facility] 09/03/21 Emma Tuttle RN [address] [place] [address] Research Nurse Hematology/Oncology 06/05/20 [place] [address] [place] [address] Physician Hematology/Oncology 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 Start Date End Date Aman Pack [address] [facility] [place] [address] PCP - General Family [facility] 09/03/21 Emma Tuttle RN [address] [place] [address] Research Nurse Hematology/Oncology 06/05/20 [place] [address] [place] [address] Physician Hematology/Oncology 06/05/20 Team Status: Active Member Role Status Dates Buffy Chung Primary Care Provider Active Team Status: Inactive Member Role Status Dates Buffy Chung Primary Care Provide r, Attending Provider, Referring Provider Active 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 Start Date End Date Aman Pack [address] [place] [address] PCP - [facility] 09/03/21 Emma Tuttle, RN [address] [place] [address] Research Nurse Hematology/Oncology 06/05/20 [place] [address] [place] [address] Physician Hematology/Oncology 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 Start Date End Date Aman Pack [address] [place] [address] PCP - [facility] 09/03/21 Emma Tuttle RN [address] [place] [address] Research Nurse Hematology/Oncology 06/05/20 [place] [address] [place] [address] Physician Hematology/Oncology 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 Start Date End Date Aman Pack [address] [place] [address] PCP - [facility] 09/03/21 Emma Tuttle RN [address] [place] [address] Research Nurse Hematology/Oncology 06/05/20 [place] [address] [place] [address] Physician Hematology/Oncology 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 Start Date End Date Aman Pack [address] [place] [address] PCP - [facility] 09/03/21 Emma Tuttle, MOISÉS [address] [place] [address] Research Nurse Hematology/Oncology 06/05/20 [place] [address] [place] [address] Physician Hematology/Oncology 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 Start Date End Date Aman Pack [address] [place] [address] PCP - [facility] 09/03/21 Emma Tuttle RN [address] [place] [address] Research Nurse Hematology/Oncology 06/05/20 [place] [address] [place] [address] Physician Hematology/Oncology 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 Start Date End Date Aman Pack [address] [place] [address] PCP - General [facility] 09/03/21 Emma Tuttle RN [address] [place] [address] Research Nurse Hematology/Oncology 06/05/20 [place] [address] [place] [address] Physician Hematology/Oncology 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 Start Date End Date Aman Pack [address] [place] [address] PCP - General Family Medicine 09/03/21 Emma Tuttle, RN [address] [place] [address] Research Nurse Hematology/Oncology 06/05/20 [place] [address] [place] [address] Physician Hematology/Oncology 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 Start Date End Date Aman Pack [address] [place] [address] PCP - General Family Medicine 09/03/21 Emma Tuttle, MOISÉS [address] [place] [address] Research Nurse Hematology/Oncology 06/05/20 [place] [address] [place] [address] Physician Hematology/Oncology 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 Start Date End Date Buffy Chung APRN-CONDENSER TESTER [address] [place] [address] PCP - General Nurse Practitioner 12/28/22 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 Start Date End Date Buffy Chung, CONDENSER TESTER [address] [place] [address] PCP - General Family Medicine 09/15/23 Emma Tuttle, MOISÉS [address] [place] [address] Research Nurse Hematology/Oncology 06/05/20 [place] [address] [place] [address] Physician Hematology/Oncology 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 Start Date End Date Buffy Chung CONDENSER TESTER [address] [place] [address] PCP - General Family Medicine 09/15/23 Emma Tuttle, MOISÉS [address] [place] [address] Research Nurse Hematology/Oncology 06/05/20 [place] [address] [place] [address] Physician Hematology/Oncology 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 Start Date End Date Buffy Chung, CONDENSER TESTER [address] [place] [place] [address] PCP - General Family Medicine 09/15/23 Emma Tuttle RN [address] [place] [address] Research Nurse Hematology/Oncology 06/05/20 [place] [address] [place] [address] Physician Hematology/Oncology 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 Start Date End Date Buffy Chung, CONDENSER TESTER [address] [place] [address] PCP - General Family Medicine 09/15/23 Emma Tuttle RN [address] [place] [address] Research Nurse Hematology/Oncology 06/05/20 [place] [address] [place] [address] Physician Hematology/Oncology 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 Start Date End Date DeclanBuffy vasquez CONDENSER TESTER [address] [place] [address] PCP - General Family Medicine 09/15/23 Emma Tuttle RN [address] [place] [address] Research Nurse Hematology/Oncology 06/05/20 [place] [address] [place] [address] Physician Hematology/Oncology 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 Start Date End Date DeclanBuffy vasquez CNP [address] [place] [address] PCP - General Family Medicine 09/15/23 Emma Tuttle RN [address] [place] [address] Research Nurse Hematology/Oncology 06/05/20 [place] [address] [place] [address] Physician Hematology/Oncology 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 Start Date End Date DeclanBuffy vasquez, CONDENSER TESTER [address] [place] [address] PCP - General Family Medicine 09/15/23 Emma Tuttle RN [address] [place] [address] Research Nurse Hematology/Oncology 06/05/20 [place] [address] [place] [address] Physician Hematology/Oncology 06/05/20 Team Status: Inactive Member Role Status Dates Buffy Chung Primary Care Provider Active Sta rt: December 09, 2023 End: December 09, 2023 Rosa Kilpatrick Jr, DO Attending Provider Active Start: December 09, 2023 End: December 09, 2023 (unrecognized sect ion and content) No Status Records FoundNo Status Records FoundNo Status Records FoundNo Status Records FoundNo Status Records FoundNo Status Records FoundNo Status Records FoundNo Status Records Found INFORMATION SOURCE (unrecogn ized section and content) DATE CREATED AUTHOR 08/13/2022 [facility] DATE CREATED AUTHOR AUTHOR'S ORGANIZ ATION 10/17/2022 [facility] DATE CREATED AUTHOR AUTHOR'S ORGANIZ ATION 08/10/2023 [facility] DATE CREATED AUTHOR AUTHOR'S ORGANIZ ATION 10/31/2023 [facility] DATE CREATED AUTHOR AUTHOR'S ORGANIZ ATION 12/04/2023 [facility] DATE CREATED AUTHOR AUTHOR'S ORGANIZ ATION 12/05/2023 [facility] DATE CREATED AUTHOR AUTHOR'S ORGANIZ ATION 12/11/2023 [facility] DATE CREATED AUTHOR AUTHOR'S ORGANIZ ATION 12/12/2023 [facility] EPIC Goals (unrecognized section and content) Goals may be documented in a n alternate sectionNot on filedocumented as of this encounterGoals may be documented in an alternate section FOR RECORDS PERTAINING TO PATIENTS WHO ARE [...] BE BASED ON THE PRIMARY CLINICAL RECORDS. [facility] [employer] [facility]. provides no warranty or guarantee of the accuracy or completeness of information in this document.
[2023-12-14 15:01] VITALS: BP 180/98; PULSE 77; TEMP 36.7; O2SAT 98; BMI 37.7
--- NOTE | 2023-12-14 15:26 | PC.NURSE ---
Pt has a small red, swollen area to left upper maxilliary area . States he a has bad teeth
--- NOTE | 2023-12-14 15:27 | ED_ITS ---
<Statement entered by Laney Fuentes MD - 12/14/23 18:08> This documentation has been reviewed and approved. HPI - Dental/Oral General Chief complaint: Dental/Oral Stated complaint: SWOLEN LEFT SIDE OF FACE Time Seen by Provider: 12/14/23 15:07 Source: patient Mode of arrival: walk-in Limitations: no limitations History of Present Illness HPI Narrative: Patient is a 53-year-old male with a history of leukemia who received chemotherapy, he also has a history of diabetes. Presents to the emergency department for evaluation of facial swelling that began today. He developed pain in the left maxilla last night, he has multiple dental caries, he states since he started chemotherapy he has had issues with his teeth. He has had no fevers, vomiting or drainage. He did not take his blood pressure medication today. He is currently taking Percocet for history of shoulder injury. No difficulty swallowing or breathing. Related Data Home Medications ?Medication ?Instructions ?Recorded ?Confirmed dapagliflozin propanediol 10 mg 10 mg PO DAILY 08/06/23 09/11/23 tablet (Farxiga) insulin glargine 100 unit/mL (3 35 unit subcut BID 08/06/23 09/11/23 mL) subcutaneous pen (Lantus Solostar U-100 Insulin) lisinopril 20 mg tablet 20 mg PO DAILY 08/06/23 09/11/23 chemo trial drug 1 pill PO DAILY 09/11/23 09/11/23 Previous Rx's ?Medication ?Instructions ?Recorded cephalexin 500 mg capsule 500 mg PO Q6H 7 days #28 caps 10/10/23 doxycycline monohydrate 100 mg 100 mg PO BID 7 days #14 caps 10/10/23 capsule clindamycin HCl 150 mg capsule 300 mg (2 x 150 mg) PO Q6H 10 days 12/14/23 #80 caps ketorolac 10 mg tablet 10 mg PO TID PRN pain #10 tabs 12/14/23 ondansetron 4 mg disintegrating 4 mg PO Q6H PRN nausea and 12/14/23 tablet vomiting #12 tabs oxycodone-acetaminophen 5 mg-325 1 tab PO Q6H PRN pain 3 days #10 12/14/23 mg tablet (Percocet) tabs Allergies Allergy/AdvReac Type Severity Reaction Status Date / Time No Known Drug Allergies Allergy Verified 12/14/23 15:05 Review of Systems ROS Constitutional Denies: fever or chills Ears, nose, mouth, and throat Reports: mouth pain; Denies: throat pain or nasal congestion Cardiovascular Denies: chest pain Respiratory Denies: shortness of breath Gastrointestinal Denies: nausea or vomiting Musculoskeletal Denies: back pain Integumentary/Breast Denies: rash Hematologic/Lymphatic Denies: easy bruising or easy bleeding [facility] Social History Smoking status: Never smoker Exam Narrative Exam Narrative: Gen.: Awake, alert, in no distress Head: Normocephalic, atraumatic ENT: Moist mucous membranes; Multiple dental caries, tenderness over tooth #10 which is eroded to the gumline. No visible dental abscess. Tenderness and mild edema noted over the left maxilla. No redness or swelling under the tongue. Airway widely open and patent. Uvula midline. No swelling under the mandible Respiratory: No respiratory distress Extremities: Moves extremities equally, no injuries noted Psych: Normal mood and affect Neuro: No focal neuro deficit Skin: Warm, dry, intact Constitutional Vital Signs, click to edit/add: Last Vital Signs Temp 98.0 F 12/14/23 15:01 Pulse 77 12/14/23 15:01 Resp 20 12/14/23 15:01 BP 180/98 H 12/14/23 15:01 Pulse Ox 98 12/14/23 15:01 O2 Del Method Room Air 12/14/23 15:01 Course Vital Signs Vital signs: Vital Signs Temperature 98.0 F 12/14/23 15:01 Pulse Rate 77 12/14/23 15:01 Respiratory Rate 20 12/14/23 15:01 Blood Pressure 180/98 H 12/14/23 15:01 Pulse Oximetry 98 12/14/23 15:01 Oxygen Delivery Method Room Air 12/14/23 15:01 Temperature 98.0 F 12/14/23 15:01 Pulse Rate 77 12/14/23 15:01 Respiratory Rate 20 12/14/23 15:01 Blood Pressure 180/98 H 12/14/23 15:01 Pulse Oximetry 98 12/14/23 15:01 Oxygen Delivery Method Room Air 12/14/23 15:01 MDM - Dental/Oral MDM Narrative Medical decision making narrative: Patient treated with topical analgesia and pain medication in the ER, discharged on clindamycin for 10 days. Follow-up with dental clinic and return to the emergency department if symptoms change or worsen. SUPERVISED APC VISIT, PHYSICIAN ATTESTATION: Based on the medical record the care appears appropriate. ? Medical Records Attestation: I reviewed the patient's medical records. Discharge Plan Discharge Stand Alone Forms: Portal Instructions Chief Complaint: Dental/Oral Clinical Impression: Dental caries, Dental abscess Patient Disposition: Home, Self-Care Time of Disposition Decision: 15:24 Condition: Good Prescriptions / Home Meds: New clindamycin HCl 150 mg capsule 300 mg PO Q6H 10 Days Qty: 80 0RF ketorolac 10 mg tablet 10 mg PO TID PRN (Reason: pain) Qty: 10 0RF ondansetron 4 mg tablet,disintegrating 4 mg PO Q6H PRN (Reason: nausea and vomiting) Qty: 12 0RF oxycodone-acetaminophen [Percocet] 5-325 mg tablet 1 tab PO Q6H PRN (Reason: pain) 3 Days Qty: 10 0RF Rx Instructions: DX: K08.89 No Action dapagliflozin propanediol [Farxiga] 10 mg tablet 10 mg PO DAILY lisinopril 20 mg tablet 20 mg PO DAILY insulin glargine [Lantus Solostar U-100 Insulin] 100 unit/mL (3 mL) insulin pen 35 unit SUBCUT BID chemo trial drug 1 pill PO DAILY cephalexin 500 mg capsule 500 mg PO Q6H 7 Days Qty: 28 0RF doxycycline monohydrate 100 mg capsule 100 mg PO BID 7 Days Qty: 14 0RF Print Language: [place] Instructions: Dental Abscess (ED) Additional Instructions: Follow up dentist Referrals: Buffy Chung NP [Primary Care Provider] - 1 week
[2023-12-14] MEDS: BENZOCAINE 30 ML, lidocaine HCL 15 ML MM (15:39)
[2023-12-14] MEDS: OXYCODONE HCL/ACETAMINOPHEN 5MG/325MG 1 TAB PO (15:39)
== END 2023-12-14 15:47 | disposition home or self-care (01) ==
PROVIDERS: Emergency Provider Emergency Medicine; PCP Nurse Practitioner
DX: K04.7 Periapical abscess without sinus (principal); K02.9 Dental caries, unspecified; E11.9 Type 2 diabetes mellitus without complications; C95.90 Leukemia, unspecified not having achieved remission; Z79.899 Other long term (current) drug therapy
CPT/HCPCS: 99283

== ENCOUNTER 2024-08-13 23:13 | Emergency (ER) | payer OTHER, SELFPAY ==
[2024-08-13 23:17] VITALS: BP 151/87; PULSE 78; TEMP 36.8; O2SAT 95; BMI 37.7
--- OUTSIDE RECORDS SUMMARY | 2024-08-13 23:22 | XMS_ITS | CCD ---
Author Organization [facility] Care Team Providers Care Clinical Sales Consultant Name Role Phone Emma Tuttle RN Unavailable Unavailevelio Howell MD, PhD, Sudipto Unavailable [phone] Aman Pack Primary Care Provider AICHHOLZ, NETWORK INTELLIGENCE ANALYST BUFFY Admitting Unavailable AICHHOLZ, NETWORK INTELLIGENCE ANALYST BUFFY Attending Unavailable AICHHOLZ, NETWORK INTELLIGENCE ANALYST BUFFY Primary Care Unavailable AICHHOLZ, NETWORK INTELLIGENCE ANALYST BUFFY Admitting Unavailable AICHHOLZ, NETWORK INTELLIGENCE ANALYST BUFFY Attending Unavailable AICHHOLZ, NETWORK INTELLIGENCE ANALYST BUFFY Primary Care Unavailable AICHHOLZ, NETWORK INTELLIGENCE ANALYST BUFFY Consulting Unavailable AICHHOLZ, NETWORK INTELLIGENCE ANALYST BUFFY Admitting Unavailable AICHHOLZ, NETWORK INTELLIGENCE ANALYST BUFFY Attending Unavailable AICHHOLZ, NETWORK INTELLIGENCE ANALYST BUFFY Primary Care Unavailable AICHHOLZ, NETWORK INTELLIGENCE ANALYST BUFFY Consulting Unavailable AICHHOLZ, NETWORK INTELLIGENCE ANALYST BUFFY Primary Care Unavailable VINAYAK ., DR BORJA Admitting Unavailable HAY ., DR BORJA Attending Unavailable ZIEBPRO, DR SHANEL Villafana Consulting Unavailable GRECHNY ., JENNIFER PIERCE Consulting Unavailabl e AICHHOLZ, NETWORK INTELLIGENCE ANALYST BUFFY Primary Care Unavailable VINAYAK .DR BORJA Admitting Unavailable HAY ., DR BORJA Attending Unavailable HAY ., DR BORJA Consulting Unavailable AICHHOLZ, NETWORK INTELLIGENCE ANALYST BUFFY Admitting Unavailable AICHHOLZ, NETWORK INTELLIGENCE ANALYST BUFFY Attending Unavailable AICHHOLZ, NETWORK INTELLIGENCE ANALYST BUFFY Primary Care Unavailable Emma Tuttle RN Unavailable Unavailevelio Howell MD, PhD, Sudipto Unavailable [phone] Aman Pack Primary Care Provider ELGAFY, ANGUS Referring Unavailable ELGAFY, ANGUS Referring Unavailable ELGAFY, ANGUS Attending Unavailable Emam Tuttle RN Unavailable Unavailabl e Aichholz, Buffy J Primary Care Provider Buffy Chung Attending Provider Buffy Chung Referring Provider [phone] YAN DURHAM Attending Unavailable YAN DURHAM Referring Unavailable BUFFY CHUNG Primary Care Unavailable Nigel Solorzano Attending Unavailable Nigel Solorzano Referring Unavailable BUFFY CHUNG Primary Care Unavailable Aichholz NETWORK INTELLIGENCE ANALYST, Buffy Rodgers Primary Care Provider Buffy Chung Primary Care Provider DO Rosa Kilpatrick Jr Attending Provider Aman Pack Primary Care Provider Mey PITT, Aman Primary Care Provider [phone] Juliet HAT BLOCKING MACHINE OPERATOR, Buffy Unavailable Unallocated , Noms Provider Primary Care Provi hal Aman Pack MD Primary Care Provider Sugg, Justina A Admitting Unavailable Shannon Justina Walter Attending Unavailable Buffy Chung Primary Care Unavailable Rosa Kilpatrick Jr Admitting Unavailable Rosa Kilpatrick Jr Attending Unavailable Buffy Chung Primary Care Unavailable Aichholz WREATH INSPECTOR-NETWORK INTELLIGENCE ANALYST, Buffy Rascon Primary Care Provider Juliet WREATH INSPECTOR-NETWORK INTELLIGENCE ANALYST, Buffy Rascon Primary Care Provider BUFFY CHUNG Referring Unavailable DECLANHSTEPHANIE, BUFFY J Primary Care Unavailable AICHHOLLurdes, BUFFY J Referring Unavailable AICHSTEPHANIE, BUFFY J Primary Care Unavailable YAN DURHAM Attending Unavailable BUFFY CHUNG Referring Unavailable AICHHOLLurdes, BUFFY Rascon Primary Care Unavailable ERIN CHAPMAN Attending Unavailable BUFFY CHUNG Referring Unavailable AICHHOLLurdes, BUFFY J Primary Care Unavailable BUFFY CHUNG DAY Primary Care Unavailable WILLIAM HOWELL Referring Unavailable JULIET, BUFFY RODGERS Primary Care Unavailable SUBHAS, RAFAEL Attending Unavailable SUBHAS, RFAAEL Admitting Unavailable AICHOLLurdes, BUFFY DAY Primary Care Unavailable LYNDA, SUDIPTO Referring Unavailable LYNDA, SUDIPTO Referring Unavailable [facility] BUFFY DAY Primary Care Unavailable AICHOLLurdes, BUFFY DAY Primary Care Unavailable [facility] BUFFY DAY Primary Care Unavailable LYNDA, SUDIPTO Referring Unavailable LYNDA, SUDIPTO Referring Unavailable [facility], BUFFY DAY Primary Care Unavailable [facility], BUFFY DAY Primary Care Unavailable LYNDA, SUDIPTO Referring Unavailable AICHOLLurdes, BUFFY DAY Primary Care Unavailable LYNDA, SUDIPTO Referring Unavailable GEORGIANA MENARD Attending Unavailable [facility], BUFFY DAY Primary Care Unavailable KYLEE DALAL Referring Unavailable KYLEE DALAL Attending Unavailable [facility], BUFFY DAY Primary Care Unavailable LYNDA, SUDIPTO Referring Unavailable KYLEE DALAL Referring Unavailable KYLEE DALAL Attending Unavailable AMAN PACK Primary Care Unavailable AICHOLLurdes, BUFFY RODGERS Primary Care Unavailable LYNDA, SUDIPTO Referring Unavailable LYNDA, SUDIPTO Attending Unavailable LYNDA, SUDIPTO Referring Unavailable [facility], BUFFY JO Primary Care Unavailable [facility], BUFFY DAY Primary Care Unavailable LYNDA, SUDIPTO Referring Unavailable [facility], BUFFY JO Primary Care Unavailable LYNDA, SUDIPTO Referring Unavailable [facility], BUFFY DAY Primary Care Unavailable LYNDA, SUDIPTO Referring Unavailable LYNDA, SUDIPTO Referring Unavailable [facility], BUFFY ADY Primary Care Unavailable LYNDA, SUDIPTO Attending Unavailable LYNDA, SUDIPTO Referring Unavailable [facility], BUFFY DAY Primary Care Unavailable NADCLIVE MAAN A Primary Care Unavailable SUBHAS, RAFAEL Attending Unavailable SUBHAS, RAFAEL Admitting Unavailable LYNDA, SUDIPTO Attending Unavailable LYNDA, SUDIPTO Referring Unavailable [facility], BUFFY DAY Primary Care Unavailable AICHOLLurdes, BUFFY DAY Primary Care Unavailable LYNDA, SUDIPTO Referring Unavailable [facility], BUFFY DAY Primary Care Unavailable LYNDA, SUDIPTO Referring Unavailable AICHHOLZ, BUFFY DAY Primary Care Unavailable LYNDA, SUDIPTO Referring Unavailable AMAN PACK A Primary Care Unavailable ROSA KILPATRICK Attending Unavailable ROSA KILPATRICK Admitting Unavailable ROSA KILPATRICK Attending Unavailable ROSA KILPATRICK Admitting Unavailable NADEREAMAN Villafana A Primary Care Unavailable BELCHER, LARS J Referring Unavailable AICHHOLZ, BUFFY J Primary Care Unavailable BELCHER, LARS J Referring Unavailable AICHHOLZ, BUFFY J Primary Care Unavailable BELCHER, LARS J Referring Unavailable AICHHOLZ, BUFFY J Primary Care Unavailable BELCHER, LARS J Referring Unavailable AICHHOLZ, BUFFY J Primary Care Unavailable BELCHER, LARS J Referring Unavailable AICHHOLZ, BUFFY J Primary Care Unavailable BELCHER, LARS J Referring Unavailable AICHHOLZ, BUFFY J Primary Care Unavailable AICHHOLZ, BUFFY J Primary Care Unavailable JOSE COOMBS Attending Unavailable AICHHOLZ, BUFFY J Referring Unavailable AICHHOLZ, BUFFY J Primary Care Unavailable JR. GARY, ROSA Hsu Attending Unavaila ZOIE Cabrera Attending Unavailable AICHHOLZ, BUFFY Attending Unavailable AICHHOLZ, BUFFY Attending Unavailable STEPJR. TRISTA, ROSA Hsu Attending Unavaila ble JULIET, BUFFY Attending Unavailable BELCHER, LARS Rascon Attending Unavailable BELCHER, LARS Rascon Attending Unavailable BELCHER, LARS Rascon Attending Unavailable BELCHER, LARS J Attending Unavailable BELCHER, LARS J Attending Unavailable CLARA MANTILLA Attending Unavailable BELCHER, LARS J Referring Unavailable JR. GARY, ROSA Hsu Attending Unavaila ble BELCHER, LARS Rascon Attending Unavailable AICHHOLZ, BUFFY Attending Unavailable STEPJR. TRISTA, ROSA Hsu Attending Unavaila ble AICHHOLZ, BUFFY Attending Unavailable AICHHOLZ, BUFFY Attending Unavailable JR. GARY, ROSA Hsu Attending Unavaila ble Allergies Allergy Classification Reported Allergen(s) Allergy Type Date of Onset Reaction(s) Facility (1 source) ALLERGIES NOT ON FILE; Translations: [ALLERGIES NOT ON FILE] Propensity to adverse reactions (disorder) [facility] Repository (20 sources) Morphinan opioid; Translations: [OPIOIDS - MORPHINE ANALOGUES] Drug Allergy 3 Vomiting, GI Upset, Nausea And Vomiting [facility] (20 sources) Morphine; Translations: [MORPHINE] Drug Allergy 3 GI intolerance, Nausea And Vomiting [facility] Repository (20 sources) Other Allergy to substance 3 GI intolerance [facility] Work Phone: Medications Current Medications Medication Drug Class(es) Dates Sig (Normalized) Sig (Original) amLODIPine 10 mg oral tablet (20 sources) Dihydropyridine Calcium Channel Christina Start: 11-05-2023 End: 11-09-2024 take 1 tablet by mouth once daily amLODIPine (Norvasc) 10 MG tablet Indications: Primary hypertension (CMS/HCC) Take 1 tablet (10 mg) by mouth Daily 90 tablet 1 08/11/2024 11/09/2024 Active Start: 05-22-2023 End: 08-20-2023 amLODIPine (NORVASC) 10 mg t ablet Take 10 mg by mouth. 05/22/2023 Active Start: 03-20-2023 take 1 tablet [...] once daily. Take 10 mg by mouth. Continuous Blood Gluc Resaw Feeder (FreeStyle [place] 2 [place]) device (20 sources) Start: 03-19-20 22 Continuous Blood Gluc Resaw Feeder (FreeStyle [place] 2 [place]) device USE DIRECTED TO CHECK GLUCOSE FOUR TIMES DAILY 03/19/2022 Active dapagliflozin 10 mg oral tablet (20 sources) Sodium-Glucose Cotransporter 2 Inhibitor Start: 04-17-20 23 End: 07-22-19 25 take 1 tablet by mouth in the morning dapagliflozin propanediol (FARXIGA) 10 mg tablet Take 1 tablet (10 mg total) by mouth in the morning. 04/17/2023 07/22/2024 Discontinued (Therapy completed) Comment on above: Take 1 tablet by juan th daily with breakfast. empagliflozin 25 mg oral tablet (20 sources) Sodium-Glucose Cotransporter 2 Inhibitor Start: 10-28-19 24 End: 12-21-19 25 take 1 tablet by mouth at mealtime empagliflozin (Jardiance) 25 MG Indications: Type 2 diabetes mellitus with hyperglycemia, with long-term current use of insulin ([facility]) Take 1 tablet (25 mg) by mouth in the morning. Take with meals. 90 tablet 1 08/11/2024 11/09/2024 Active flash glucose scanning reader (FREESTYLE MARY ANN 2 READER) (20 sources) Start: 03-19-20 flash glucose scanning reader (FREESTYLE MARY ANN 2 READER) Check glucose 4 times daily 1 Each 03/19/2022 Active Start: 03-19-2022 flash glucose scanning reader (FREESTYLE MARY ANN 2 READER) Check glucose 4 times daily 1 Each 0 03/19/2022 Active Comment on above: Check glucose 4 time s daily flash glucose sensor (FREESTYLE MARY ANN 2 SENSOR) kit (20 sources) Start: 03-21-2023 flash glucose sensor (FREESTYLE MARY ANN 2 [...] groin FREESTYLE MARY ANN 2 SENSOR kit (9 sources) Start: 12-12-2022 FREESTYLE MARY ANN 2 SENSOR kit every 14 (fourteen) days. 12/12/2022 Active Start: 12-12-2022 FREESTYLE LIBR E 2 SENSOR kit every 14 (fourteen) days. 0 12/12/2022 Active ibuprofen 800 mg oral tablet (20 sources) Nonsteroidal Anti-inflammatory Drug Start: 10-24-2015 ibuprofen (MOTRIN ) 800 mg tablet 10/24/2015 Active 3 ml insulin glargine 100 unt/ml pen injector (20 sources) Insulin Analog Start: 08-11-2024 insulin glargi ne (Lantus SoloStar) 100 UNIT/ML pen Indications: Type 2 diabetes mellitus with hyperglycemia, with long-term current use of insulin (CMS/HCC) 35 units twice a day 60 mL 1 08/11/2024 Active Start: 08-11-2024 insulin glargi ne (Lantus SoloStar) 100 UNIT/ML pen Indications: Type 2 diabetes mellitus with hyperglycemia, with long-term current use of insulin (CMS/HCC) 35 units twice a day 60 mL 1 08/11/2024 Active Start: 08-11-2024 insulin glargi ne (Lantus SoloStar) 100 UNIT/ML pen Indications: Type 2 diabetes mellitus with hyperglycemia, with long-term current use of insulin (CMS/HCC) 35 units twice a day 60 mL 1 08/11/2024 Active Start: 02-20-2024 End: 08-11-2024 insulin glargine (Lantus Bria oStar) 100 UNIT/ML pen Indications: Type 2 diabetes mellitus with hyperglycemia, with long-term current use of insulin (CMS/HCC) 35 units twice a day 60 mL 1 02/20/2024 08/11/2024 Discontinued (Reorder) Start: 11-27-2023 End: 05-19-2024 inject 35 [IU] by subcutaneous injection in the morning insulin glargine (Lantus SoloStar) 100 UNIT/ML pen Indications: Type 2 diabetes mellitus with hyperglycemia, with long-term current use of insulin (CMS/HCC) Inject 35 Units under the skin in the morning and 35 Units before bedtime. 63 mL 1 02/19/2024 02/20/2024 Discontinued Start: 10-15-2022 insulin glargi ne (LANTUS SOLOSTAR [...] pen injector (20 sources) Insulin Analog Start: 08-11-2024 insulin lispro (HumaLOG) 100 UNIT/ML injection Indications: Type 2 diabetes mellitus with hyperglycemia, with long-term current use of insulin (CMS/HCC) 10 units for at breakfast and lunch, and 22 units at dinner time, plus sliding scale. Max 78 units per daily 8 each 3 08/11/2024 Active Start: 08-11-2024 insulin lispro (HumaLOG) 100 UNIT/ML injection Indications: Type 2 diabetes mellitus with hyperglycemia, with long-term current use of insulin (CMS/HCC) 10 units for at breakfast and lunch, and 22 units at dinner time, plus sliding scale. Max 78 units per daily 8 each 3 08/11/2024 Active Start: 12-04-2023 End: 08-11-2024 insulin lispro (HumaLOG) 100 UNIT/ML injection Indications: Type 2 diabetes mellitus with hyperglycemia, with long-term current use of insulin (CMS/HCC) 10 units for at breakfast and lunch, and 22 units at dinner time, plus sliding scale. Max 78 units per daily 8 each 3 12/04/2023 08/11/2024 Discontinued (Reorder) Start: 06-17-2023 insulin lispro (HUMALOG KWIKPEN) 100 [...] times a day with meals. Sliding scale 10/30/2022 Active Start: 10-30-2022 End: 04-17-2023 insulin [...] (Max daily dose of 91 units daily) insulin lispro (HumaLOG) 100 unit/mL insulin pen (1 source) Start: 10-31-19 insulin lispro (HumaLOG) 100 unit/mL insulin pen 3 (three) times a day with meals. Sliding scale 0 10/30/2022 Active Insulin Syringe-Needle U-100 1 mL 25 x [...] sources) Angiotensin Converting Enzyme Inhibitor Start: 09-10-19 End: 11-10-19 take 1 tablet by mouth once daily lisinopril 20 MG tablet Indications: Primary hypertension (CMS/HCC) Take 1 tablet (20 mg) by mouth Daily 90 tablet 1 08/11/2024 11/09/2024 Active Comment on above: Take 20 mg by mouth once daily. NON FORMULARY (9 sources) pravastatin sodium 80 mg oral tablet (20 sources) HMG-CoA Reductase Inhibitor Start: 08-29-2023 End: 11-09-2024 take 1 tablet by mouth once daily pravastatin (Pravachol) 80 MG tablet Indications: Mixed hyperlipidemia (CMS/HCC) Take 1 tablet (80 mg) by mouth Daily 90 tablet 1 08/11/2024 11/09/2024 Active Start: 08-12-2022 End: 08-29-2023 take 1 tablet by mouth in the morning pravastatin (PRAVACHOL) 40 mg tablet Take 1 tablet (40 mg total) by mouth in the morning. 08/12/2022 Active End: 10-15-2022 pravastatin sodium (PRAVASTA TIN ORAL) Take by mouth once daily. 0 10/15/2022 Discontinued pravastatin sodi um (PRAVASTATIN ORAL) Take by mouth once daily. 0 Active Comment on above: Take by mouth once d aily. Take 1 tablet by juan th once daily. sod sulf-pot chloride-mag sulf 1.479-0.188- 0.225 gram tablet (2 sources) Start: 07-22-2024 sod sulf-pot chloride-mag sulf 1.479-0.188- 0.225 gram tablet Indications: Encounter for screening colonoscopy Please see instructional sheet given by physicians office. 24 tablet 07/22/2024 Active Completed/Discontinued Medications Medication Drug Class(es) Dates Sig (Normalized) Sig (Original) glipiZIDE er 5 mg 24 hr extended release oral tablet (20 sources) Sulfonylurea Start: 02-11-2024 End: 06-18-2024 take 1 tablet by mouth once daily glipiZIDE XL (Glucotrol XL) 5 MG 24 hr tablet Indications: Type 2 diabetes mellitus with hyperglycemia, with long-term current use of insulin (CMS/HCC) Take 1 tablet (5 mg) by mouth Daily 90 tablet 02/11/2024 06/18/2024 Discontinued Start: 11-10-2023 End: 04-16-2024 take 1 tablet by mouth once daily before breakfast glipiZIDE (GLUCOTROL) 5 mg tablet Take 1 tablet (5 mg) by mouth daily before breakfast. 90 tablet 12/23/2023 04/16/2024 Discontinued insulin glargine,hum.rec.anlog (LANTUS SUBCUTANEOUS) (20 sources) End: 10-15-2022 inject 35 [IU] by subcutaneous injection twice daily insulin glargine,hum.rec.anlog (LANTUS SUBCUTANEOUS) Inject 35 Units subcutaneously twice [...] mg tab let omega-3 acid ethyl esters (custodial) 1000 mg oral capsule (20 sources) Start: 06-22-2020 End: 10-02-2023 omega-3 acid ethyl esters (LOVAZA) 1 gram capsule Indications: CML (chronic myelocytic leukemia) (HCC) Take 2 capsules by mouth twice daily. 120 capsule 2 06/22/2020 10/02/2023 Discontinued (Discontinued by Patient) Comment on above: Take 2 capsules by m outh twice daily. perflutren lipid microspheres 1.3 mL [...] NaCl (PF) 0.9% 10 mL injection (DEFINITY) 125 ml sodium chloride 9 mg/ ml prefilled syringe (20 sources) Start: 07-27-2020 End: 04-23-2024 sodium chloride 0.9 % (flush ) 10 mL (BD POSIFLUSH) Problems Active Problems Problem Classification Problem Date Documented Date Episodic/Chronic Acquired foot deformities (20 sources) Toe joint rigid; Translations: [Hallux rigidus, right foot] Onset: 10-14-2023 10-14-2023 Chronic Diabetes mellitus with complications (20 sources) Type II diabetes mellitus uncontrolled; Translations: [Type 2 diabetes mellitus with hyperglycemia] Onset: 08-06-2022 Resolved: 08-11-2024 Chronic Disorders of lipid metabolism (20 sources) Mixed hyperlipidemia; Translations: [Mixed hyperlipidemia] Onset: 05-13-2022 Chronic Esophageal disorders (20 sources) Gastroesophageal reflux disease; Translations: [Gastro-esophageal reflux disease without esophagitis] Onset: 07-14-2023 07-14-2023 Chronic Essential hypertension (20 sources) Essential hypertension; Translations: [Essential (primary) hypertension] Onset: 05-13-2022 Chronic Headache; including migraine (20 sources) Migraine; Translations: [Migraine, unspecified, not intractable, without status migrainosus] Onset: 07-14-2023 07-14-2023 Chronic Immunity disorders (20 sources) Secondary immune deficiency disorder; Translations: [Immunodeficiency due to conditions classified elsewhere] Onset: 04-01-2024 04-01-2024 Chronic Leukemias (20 sources) Chronic myeloid leukemia; Translations: [Chronic myeloid leukemia, BCR/ABL-positive, not having achieved remission] Onset: 04-06-2012 Chronic Osteoarthritis (20 sources) Arthritis; Translations: [Unspecified osteoarthritis, unspecified site] Onset: 08-07-2023 08-07-2023 Chronic Other aftercare (6 sources) Long-term current use of insulin; Translations: [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] Onset: 08-11-2024 08-11-2024 Episodic Other and ill-defined heart disease (2 sources) Cardiomegaly; Translations: [Cardiomegaly] Onset: 07-31-2023 Chronic Other and ill-defined heart disease (20 sources) Left ventricular hypertrophy; Translations: [Cardiomegaly] Onset: 03-20-2023 11-05-2023 Chronic Other connective tissue disease (4 sources) Supraspinatus tear; Translations: [Unspecified rotator cuff tear or rupture of left shoulder, not specified as traumatic] 06-18-2024 Episodic Other connective tissue disease (2 sources) Biceps tendinitis; Translations: [Bicipital tendinitis, left shoulder] 06-18-2024 Episodic Other injuries and conditions due to external causes (1 source) Foreign body on external eye, part unspecified, unspecified eye, sequela; Translations: [Foreign body on external eye, part unspecified, unspecified eye, sequela] Onset: 07-31-2023 Episodic Other nervous system disorders (1 source) Carpal tunnel syndrome of right wrist; Translations: [Carpal tunnel syndrome, right upper limb] 02-26-2024 Chronic Other nervous system disorders (1 source) Ulnar neuropathy of right arm; Translations: [Lesion of ulnar nerve, right upper limb] 02-26-2024 Chronic Other nervous system disorders (3 sources) Numbness; Translations: [Anesthesia of skin] 03-29-2024 Episodic Other non-traumatic joint disorders (1 source) Shoulder pain Onset: 05-19-2024 Episodic Other nutritional; endocrine; and metabolic disorders (1 source) Morbid (severe) obesity due to excess calories; Translations: [MORBID SEVERE OBES D/T EXCESS JIMENA] Onset: 05-13-2022 Chronic Other nutritional; endocrine; and metabolic disorders (1 source) Body mass index (BMI) 39.0-39.9, adult; Translations: [BODY MASS INDEX BMI 39.0-39.9 ADULT] Onset: 05-13-2022 Chronic Other nutritional; endocrine; and metabolic disorders (20 sources) Body mass index 30+ - obesity; Translations: [Body mass index (BMI) 37.0-37.9, adult] Onset: 05-06-2023 03-03-2024 Chronic Other nutritional; endocrine; and metabolic disorders (20 sources) Obesity caused by energy imbalance; Translations: [Morbid (severe) obesity due to excess calories] Onset: 03-03-2024 03-03-2024 Chronic Jossy-; endo-; and myocarditis; cardiomyopathy (except that caused by tuberculosis or sexually transmitted disease) (20 sources) Other hypertrophic cardiomyopathy; Translations: [Hypertrophic cardiomyopathy] Onset: 03-20-2023 Resolved: 10-29-2023 07-14-2023 Chronic Residual codes; unclassified (1 source) Sleep apnea, unspecified; Translations: [SLEEP APNEA UNSPECIFIED] Onset: 05-13-2022 Chronic Residual codes; unclassified (4 sources) Obstructive sleep apnea (adult) (pediatric); Translations: [OBSTRUCTIVE SLEEP APNEA] Onset: 11-01-2021 Chronic Residual codes; unclassified (20 sources) Obstructive sleep apnea syndrome; Translations: [Obstructive sleep apnea (adult) (pediatric)] Onset: 03-20-2023 03-03-2024 Chronic Residual codes; unclassified (8 sources) History of arthroscopic procedure on shoulder; Translations: [Other specified postprocedural states] 03-29-2024 Episodic Residual codes; unclassified (1 source) Family history of cancer of colon; Translations: [Family history of malignant neoplasm of digestive organs] 07-22-2024 Episodic Residual codes; unclassified (1 source) Family history of malignant neoplasm of digestive organs; Translations: [Family history of malignant neoplasm of digestive organs] Onset: 07-22-2024 Episodic Spondylosis; intervertebral disc disorders; other back problems (20 sources) Spondylosis without myelopathy or radiculopathy, lumbar region; Translations: [Degeneration of lumbar intervertebral disc] Onset: 10-16-2022 Chronic Spondylosis; intervertebral disc disorders; other back problems (2 sources) Radiculopathy, lumbar region; Translations: [Radiculopathy, lumbar region] Onset: 10-15-2022 Episodic Sprains and strains (5 sources) Unspecified sprain of left shoulder joint, initial encounter; Translations: [Sprain of left shoulder] Onset: 05-19-2024 06-18-2024 Episodic Unclassified (3 sources) Patient encounter status; Translations: [Colon Cancer Screening] Onset: 07-22-2024 05-31-2024 Unclassified (1 source) EMS Onset: 05-19-2024 Past or Other Problems Problem Classification Problem Date Documented Date Episodic/Chronic Abdominal pain (4 sources) Unspecified abdominal pain; Translations: [UNSPECIFIED ABDOMINAL PAIN] Onset: 11-21-2021 Episodic Cardiac dysrhythmias (1 source) Palpitations; Translations: [Palpitations] 06-30-2023 Episodic Deficiency and other anemia (20 sources) Anemia; Translations: [Anemia, unspecified] Onset: 07-14-2023 07-14-2023 Episodic Fluid and electrolyte disorders (20 sources) Hyponatremia; Translations: [Hypo-osmolality and hyponatremia] Onset: 07-14-2023 07-14-2023 Episodic Other acquired deformities (20 sources) Spondylolisthesis; Translations: [Spondylolisthesis, site unspecified] Onset: 07-14-2023 07-14-2023 Episodic Other aftercare (1 source) Other bosom presser (current) drug therapy; Translations: [OTH PENITENTIARY CURRENT DRUG THERAPY] Onset: 05-13-2022 Episodic Other aftercare (1 source) 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; Translations: [PENITENTIARY CURRENT USE OF INSULIN] Onset: 05-13-2022 Episodic Other and ill-defined heart disease (2 sources) Hypertrophic cardiomegaly ; Translations: [Cardiomegaly] Onset: 03-20-2023 Resolved: 03-20-2023 03-20-2023 Chronic Other connective tissue disease (1 source) Arthrodesis status; Translations: [ARTHRODESIS STATUS] Onset: 05-13-2022 Episodic Other connective tissue disease (1 source) Ganglion, right wrist; Translations: [GANGLION RIGHT WRIST] Onset: 05-13-2022 Episodic Other connective tissue disease (20 sources) Tear of right rotator cuff; Translations: [Unspecified rotator cuff tear or rupture of right shoulder, not specified as traumatic] Onset: 08-07-2023 08-07-2023 Episodic Other connective tissue disease (20 sources) Pain of bilateral hands; Translations: [Pain in right hand] Onset: 04-27-2024 04-27-2024 Episodic Other connective tissue disease (1 source) Muscle weakness of upper limb; Translations: [Other symptoms and signs involving the musculoskeletal system] 02-26-2024 Episodic Other connective tissue disease (1 source) Pain in right arm; Translations: [Pain in right arm] 02-26-2024 Episodic Other nervous system disorders (3 sources) Paresthesia of hand ; Translations: [Paresthesia of skin] 02-04-2024 Episodic Other non-traumatic joint disorders (6 sources) Pain in right shoulder; Translations: [Pain in joint, shoulder region] Onset: 12-23-2023 06-13-2023 Episodic Other screening for suspected conditions (not mental disorders or infectious disease) (20 sources) Encounter for screening for malignant neoplasm of prostate; Translations: [Abnormal electrocardiogram [ECG] [EKG]] Onset: 08-11-2022 07-14-2023 Episodic Other skin disorders (20 sources) Eruption; Translations: [Rash and other nonspecific skin eruption] Onset: 07-15-2017 07-15-2017 Episodic Other skin disorders (3 sources) Localized swelling, mass and lump, right upper limb; Translations: [LOC SWELL MASS LUMP RT UPPER LIMB] Onset: 05-12-2022 Episodic Other skin disorders (20 sources) Localized swelling of left hand; Translations: [Localized swelling, mass and lump, left upper limb] Onset: 10-14-2023 10-14-2023 Episodic Pancreatic disorders (not diabetes) (20 sources) Pancreatitis; Translations: [Acute pancreatitis without necrosis or infection, unspecified] Onset: 07-14-2023 07-14-2023 Episodic Residual codes; unclassified (20 sources) Hypersomnia; Translations: [Hypersomnia, unspecified] Onset: 02-25-2024 Resolved: 08-11-2024 02-25-2024 Chronic Residual codes; unclassified (1 source) Acquired absence of other specified parts of digestive tract; Translations: [ACQ ABSENCE OTH PART DIGESTV TRACT] Onset: 05-13-2022 Episodic Residual codes; unclassified (1 source) Contact with and (suspected) exposure to potentially hazardous body fluids; Translations: [Contact with and (suspected) exposure to potentially hazardous body fluids] Onset: 12-09-2023 Episodic Residual codes; unclassified (1 source) Pain, unspecified; Translations: [Pain, unspecified] Onset: 09-10-2023 Episodic Residual codes; unclassified (1 source) Other specified postprocedural states; Translations: [Other specified postprocedural states] Onset: 12-23-2023 Episodic Results Test Name Value Interpretation Reference Range Facility Coding Summaryon 08-03-2024 Coding Summary HTMLBase 64 EbrstdndEKf5qMs+PGhlYWQ +[id number] NMTElOSywgQVBQTElOSyIgb mSrIF5kqQWdZYZq IC8+SR4fHMCoTvkhjHWye2R 8yHP6S16kzf3tLTqadYW1UZ DcXnDprhgkj4xsvTw7AAhcS mluOyBt ZGSkvN32ULP8iH08Hw82uWP dtBYdn2kxnRz9YfXkNNKxTX W2vYetIRemz6CrQVQjX27gx TBqc6E2 QTPxzFmlkJGkOzKnpAL5lH2 yLJgttsiiq6oqckyqFgh6nh 00gUZku7G2iPE6I2OohsL6H GJvbGQg VhknpYUMpE1fhzyuk4bskwf qHbLiYYSpLZm4AUc9FUDbpB myRdTpOJ46DCI8OLXlquJfT 2FsLWFs fAwmGiP4o5S0Qu1WX5ALZbt eV4UOMUGXTJlxdZR+PC90cj 85I6KjGmrtDix4OXAzMJF1h QF4nE5r ZWJhOSpqx2H4pQB5W0VrdlS zah0yn8zsOXXqBZmgL79hgE Zjc8K8EPIoqON8UAEwjEtpR iBzaG93 Oyc+QTAukBwkd1AaAxtwh4r wj2qxwDt6ZmlxJNGcmfNrzD frEAX8b0ZyBf6mJCIgzXU6w VO5oV3b HhFpAaA9ZFqsY721HoQdsJP oCcrvX42aY1KcvAJ+PHRyPj c5HCLtdWhxLF3zH3EyTQGup mctbGVm bWnpFL2mLYGjzspnVQBpxG1 lBUChW6h5OxLmWnU4XPjlL8 MiHMWbwbliAm75gE5hRnVfR uV7EBae X6CccvM1ZEPnbKKvGMpnFEY 2U82nk0N5BCOwBXBjKPX5hC E0yE1nhSkpmomkfDUtdNtdb mVydGlj SAfeHOqmE635IKVatYscPzZ vZGluZyBEYXRlOiAgMDIvMj UvMjAyNTwvdGQ+MGNtWTX0g WxlPSAn aOJdYHuxQo6uvFyrmDbjSQ7 tAOSqlamfJUTkeG7fQZEtpX VmvSpjKO8fDWMavaxaz295M iAxMHB0 VXIlcAAzY3JzhW4dKqVgMDN lOTKoL8PiuMDaCQolP859HJ qrDwI7YLKpxmBsF3WdPYAhb WduOiB0 t0T0Qq8Mt0MvvawrZ6BytDM bNeHcRrayBWk1D1CeMukcsV I+CE90NKGiVB03QKv3GNL0r WxlPSdi WXSbJ5PweW9wLfQuRXIkGXQ kOyc+PHRhYmxlIHdpZHRoPS gmZUIjBdAtlAlmTC1gFu2zF GVyLWNv qDmfcAMtZmOgn9qiCDMjZCr oLH3deAmoC5LofHX8BAYsz8 y4Wi07P52uN3OxmRX+PGNvb UG9mHG2 oI5oGtVrLqC7NErmB236SeH feUTuQtdty0wjb2sssRd6Uu H1FSUvybFkfQejYVD5r4WnK t49Z89w IHdpZHRoPSIxNSUiIHZhbGl bwp4lfD8kRb2+DJDavNF8aM Q0uX4aEvHhMwI9XBigO086S nRvcCIv Umhyw9tca0mohPx5AzItDNW eldYlvQbtVCO8g7ByOd82N3 UaeKvxn2JfAow7ex39qSKre 3G1yZB3 Q7VyOGXkuvtgiMLvpWneID2 gVHRuubjsEAZjeN3wCPAkS1 i1VnMvSkY0DXkwY1ZjodG7N GJvbGQg WEIdwFDAvT9aglmnq8sjuhx sXwLqFDWcYOz2LTt6MQLzeL wzQgDiMNB6AhQ1FKV2eXKuj Z0qfXug thcerU0gViu+FCK3eZFmdNH AVR9vRzzszPS+AEEyNYL1mA zsTMjoIRTpoJ1iIOKeT1j5L iAwLjA1 JKgfP1PjyvV3JPEefTNrRWC nzIEQgQ6oudbow3nguczrQi IiUYWqVCg3KZe9HLSwjKleF iBsZWZ0 LlM6XBC8lZUqeC9jsIiskbm gjC7yOfx+SgpvwBhxEHS5ZY z1F9NjWwf5IIZnxBniRI6eb GFkZGlu Os6nvJqrkBxmDQ9jWIWqvhx ln621JgAkk8esCOQuoLYnOJ hpEGW1G25vd4S6ANXoAVClM NH2hIA9 yX6uqKfvppdupDDmiOkytjH xaGyoPZbdZGarN788WVAsjJ liUnNbMTz2M8CcYmc8RBFyo GsvGX6r yGXgHQvgAo7mlYefuPxzIS7 mZAUdahghv396BhKoz0jnKK KgvJSvZOcwGJZ6N22ce7G3D CMwMDAw HKH2dFA7dW2flYyoggqidRK mdDsgdmVydGljYWwtYWxpZ2 12NRRfeXfyBrDmnYw3F0UvH zb3ZYQc zLdwRX3kdQEfJNjbIp3gdJx ngNuyEL9hRXZidihpq885Bb Pmq3jhDNOxgYJbWAphTUJ5P 96aa9V6 EZJaYSBvCBE0uPQ6jZ0gaXl nbjogbGVmdDsgdmVydGljYW oeNBbcP434DLNidBshRpDhu GllbnQg DOouBRw6H5DyPzmliFE+PC9 3PKHdTU16cZVhdPDiw3rxuS q1BlCpJKGiJJY0iSvpKQyrh 3JkZXIt X34mvVQjk4L9CAIrkTywkIY bAmIgeBS5cX5vIUtqcfujo7 qdsvzwLwywq6eqlm04wK65Y 29sIHdp ZHRoPSIzMCUiIHZhbGlnbj0 qcE0jWy9+EFImaVA5jEI5sN 5tHVVvEnV9ZOxgN171ZrFxt CIvPjxj o8omf2hvxAd9MdR1QPAvknC mvGwwIGL9b8PrXr69G18oFL dpZHRoPSIyMCUiIHZhbGlnb b6raT8m Ii8+VQEnuWT1hTM1eK1lXnW lAxY3GMhvD775MuWjwSDlIl lnK29pA4XcyOL+VLLsAga9Y CBzdHls DS9bdHBbZZjhXq9oVTJ5NbO mPaEpZTvoE6NdHLThpumrdx rdwTK1IUGeCEBtbK97Nj8eg DogMTBw gMECpE5qnsnpf4xkhjkpVtQ bZGHdFCm9OJn3VQIlqGeqBo MoRRY9ZzW0YYR3tGTaiE8bb Glnbjog vH1wH1XkARKtwnzfYi98hS6 lKbJiRrB9AYlwRcs+V0VTVC ONhukpOXkJCAQWZHRQIL24B L19nMQx h1Q4aOV7E9MsIOFvkuohuss poSZ3VYDzHSXyfL28vGFkIO oqJe7sb0L5y677GWDlMBErp O06Hb8c jDpjTLXlwQUAxR6vdzsxc6c tlxmrLrSxNEUePTh9JCv7LO CcnUhqVuMqTSC3UvZ9DHJ3p LWeyP4x wPlyhxkazU7eJsa+MDQvMTk nXSq1TKzciRD+CQOyYWF4bR xoZQbqTPOqzK1zTQUmA6u8O iAwLjA1 PWhmV2ZlGIEdsegrPr42zL7 bEnVvLjF2BKzdD1QkgrX8JA FoeAShYDwiISC3X44dr6D0E CMwMDAw NBJ3iHK6qA2vdBthxdbueOA mdDsgdmVydGljYWwtYWxpZ2 94JNBffTwcNcF4LOcyTPYfN G94IR51 oFYqr5K0qLL6M3VlXYFqzby cqilcuSQ9AAQqYASrnY76wY ZnCVyaSl7nq8A1f057EBLjV DUwaW47 Sa1xsQazEJPkcNCXvL8mrac sf7mtarszYpKtRXIoCMy6PH w6XZPqlBomCvCdOSK5DjJ9J XE8jGFq rA8vqMjqvagglJ5lOhw+TUF MRTwvdGQ+EQDdLJT7oCadUO kfYLVapN4gYLMrH0h3XzLeI wH8RPja X5OwWXGcnjomGn77aW1qLkA hMyQ9BIehQ8LrmqM9VYJgaL OzXCgzIZL1V87bd2L0SSIeG DAwMDA7 oCF7wR6rvNckztffxQLsfVr wisLgjJazOVnrBJetL243DV ZwlIkvXi4BOR13FZ07A3KlM jwvdGFi bGU+PHRhYmxlIHdpZHRoPSc xQKDdTjOcrJeaMM9hYy5gZV BoGLGwtRxldNZdSzOzw1boL XBzZTsg MY2brDprV7MgvJK9SOXak5n 8Pp18Y13hP0UwrIS+PGNvbC S0oZL7nC0zWlVuEdI7YIrqG 249InRv tLHxGuebg4dhi4zpjFp0AzA lZPFwhpJkvBhsOZE5b5PjYa 54R04wKRbmKVTaJAMkYANyO HZhbGln sm3txD1bNd6+UHNzoRM1gDH 0uL0oQjQgXdV2SNbgN455Zu YwkCGjNgyfF69bF3IhlNB+P HRyPjx0 GAClkAxuVY3qfTUjUSdyDd5 oUJK6TmViYyVmQNjnU9XzWM YiozenpyndzMY6KQNrMQWpc Q85Om8e vOokKt9iOQDuYQU0KGPepGY aN4LqqG5tUgHdDZEsCXJgG7 NitCTxLZagA723POcvBbH9C HZlcnRp E3MoABQowYyjAjM0c5U1Ey8 TsTicmWCkDQ4gWjYzWDw2K5 BsCml2UNMjmFbrJY9obXZuB VluFx2w jQtcvKlaHW6tZYNqpgoxz73 8MvDhg9xrUECtoBBiKDhoYY S9O77ps1T2ASPiTPZaERE1u YP4iX1w bGlnbjogbGVmdDsgdmVydGl bFJquQJzsB356FLMmvQswBv QOYxv3P4SqEqm2ASGloRcmZ T6liGLt BAzePj0efZtseEwlTT3oUND rgdpqa383PxDoq1gvNGFbpX BvVRfdBJB5L69mn4R0BDRuY DAwMDA7 hZJ5rY1ruQkxiwgcbUEuvJx pldFtlXqzYUlgJXjqT059OJ VltRuxEo5IAty0X6FvPxs6G CBzdHls VZ0fxXMcKZdzHe2yuDbcyRc yAO7fPCSclesik906CeLdi3 gqIGDfdBVyDPsdMKQ7Q98iw 2Q4MUBb QIRhEFH6nBJ4mT8beFvbvdy gbGVmdDsgdmVydGljYWwtYW boO495NFVnkYnlKeOhdBTzE jwvdGQ+ TB68rd86D9BzZujpFsh0LYN tNMK7wUW1sS1bFRWjEEscj6 N2xBP0L9QvciYjpg1ja5wpF XBzZTog Y29 (more content not included)... Normal [facility] .Auto Diff 07-28-2024 Auto [place] % 7 % Normal -12 [facility] Comment on above: Performed By: #### 1 [id number], [id number], [id number] #### [facility] (DEFAULT) [address] [place] [address] Baso Abs# 0.2 x10 Normal 0.0-0.2 [facility] Comment on above: Performed By: #### 1 [id number], [id number], [id number] #### [facility] (DEFAULT) [address] [place] [address] Basophils/100 WBC (Bld) 1.0 % Normal 0.2-2.0 [facility] Comment on above: Performed By: #### 1 [id number], [id number], [id number] #### [facility] (DEFAULT) [address] [place] [address] Eos Abs# 0.5 x10 High 0.0-0.4 [facility] Comment on above: Performed By: #### 1 [id number], [id number], [id number] #### [facility] (DEFAULT) [address] [place] [address] Eosinophils/100 WBC (Bld) 5.0 % High 0.9-4.0 [facility] Comment on above: Performed By: #### 1 [id number], [id number], [id number] #### [facility] (DEFAULT) [address] [place] [address] Lymph Abs# 2.0 x10 Normal 1.3-2.9 [facility] Comment on above: Performed By: #### 1 [id number], [id number], [id number] #### [facility] (DEFAULT) [address] [place] [address] Lymphocytes/100 WBC (Bld) 19 % Normal 14-48 [facility] Comment on above: Performed By: #### 1 [id number], 4240410, [id number] #### [facility] (DEFAULT) [address] [place] [address] [place] Abs# 0.8 x10 Normal 0.0-0.8 [facility] Comment on above: Performed By: #### 1 [id number], [id number], [id number] #### [facility] (DEFAULT) [address] [place] [address] Neut Abs# 7.4 x10 Normal 1.5-9.2 [facility] Comment on above: Performed By: #### 1 [id number], 2750814, [id number] #### [facility] (DEFAULT) [address] [place] [address]338 Neutrophils/100 WBC (Bld) 68 % Normal 44-88 [facility] Comment on above: Performed By: #### 1 [id number], 3472399, [id number] #### [facility] (DEFAULT) [address] [place] [address] 21778 BMP [place] 07-28-2024 Anion gap [Moles/Vol] 16.7 mmol/L Normal 5.0-19.0 [facility] Comment on above: Performed By: #### 1 [id number], [id number], [id number] #### [facility] (DEFAULT) [address] [place] [address] 95363 Breakpoint Chem Normal [facility] Comment on above: Performed By: #### 1 [id number], 8328584, [id number] #### [facility] (DEFAULT) [address] [place] [address] 71297 Calcium [Mass/Vol] 9.8 mg/dL Normal 8.9-10.3 [facility] Comment on above: Performed By: #### 1 [id number], 5894635, [id number] #### [facility] (DEFAULT) [address] [place] [address] 37708 Chloride [Moles/Vol] 102 mmol/L Normal 101-111 [facility] Comment on above: Performed By: #### 1 [id number], 9938397, [id number] #### [facility] (DEFAULT) [address] [place] [address] 12389 CO2 [Moles/Vol] 22 mmol/L Normal 21-32 [facility] Comment on above: Performed By: #### 1 3361363, 1568934, [id number] #### [facility] (DEFAULT) [address] [place] [address] 28067 Creatinine [Mass/Vol] 0.63 mg/dL Low 0.90-1.30 [facility] Comment on above: Performed By: #### 1 [id number], 8647490, [id number] #### [facility] (DEFAULT) [address] [place] [address] 63921 Glucose [Mass/Vol] 196.0 mg/dL High 74.0-118.0 [facility] Comment on above: Performed By: #### 1 [id number], 9539533, [id number] #### [facility] (DEFAULT) [address] [place] [address] 61078 Osmolality 279 mOsm/L Invalid Interpretation Code [facility] Comment on above: Performed By: #### 1 [id number], 7761776, [id number] #### [facility] (DEFAULT) [address] [place] [address] 57469 Potassium [Moles/Vol] 3.7 mmol/L Normal 3.6-5.1 [facility] Comment on above: Performed By: #### 1 [id number], 4310954, [id number] #### [facility] (DEFAULT) [address] [place] [address] 08381 Sodium [Moles/Vol] 137.0 mmol/L Normal 136.0-144.0 [facility] Comment on above: Performed By: #### 1 [id number], 6841176, [id number] #### [facility] (DEFAULT) [address] [place] [address] 12231 Urea nitrogen [Mass/Vol] 13 mg/dL Normal 8-26 [facility] Comment on above: Performed By: #### 1 [id number], 1971649, [id number] #### [facility] (DEFAULT) [address] [place] [address] Urea nitrogen/Creatinine [Mass ratio] 20.6 mg/mg High 4.6-16.2 [facility] Comment on above: Performed By: #### 1 [id number], 4702411, [id number] #### [facility] (DEFAULT) [address] [place] [address] CBC w/ Auto Diffon 5 Erythrocyte distribution width (RBC) [Ratio] 14.5 % Normal 11.5-15.0 [facility] Comment on above: Performed By: #### 1 [id number], 2266826, [id number] #### [facility] (DEFAULT) [address] [place] [address] Hematocrit (Bld) [Volume fraction] 47.2 % Normal 34.8-51.9 [facility] Comment on above: Performed By: #### 1 [id number], 1688716, [id number] #### [facility] (DEFAULT) [address] [place] [address] Hemoglobin (Bld) [Mass/Vol] 16.5 g/dL Normal 11.8-17.7 [facility] Comment on above: Performed By: #### 1 [id number], 8107141, [id number] #### [facility] (DEFAULT) [address] [place] [address] Man Diff? Auto Normal [facility] Comment on above: Performed By: #### 1 [id number], 0861667, [id number] #### [facility] (DEFAULT) [address] [place] [address] MCH (RBC) [Entitic mass] 28 pg Normal 24-34 [facility] Comment on above: Performed By: #### 1 1647878, 4777539, [id number] #### [facility] (DEFAULT) [address] [place] [address] MCHC (RBC) [Mass/Vol] 35 g/dL Normal 26-37 [facility] Comment on above: Performed By: #### 1 [id number], 1653726, [id number] #### [facility] (DEFAULT) [address] [place] [address] MCV (RBC) [Entitic vol] 80 fL Low 81-100 [facility] Comment on above: Performed By: #### 1 [id number], 0159866, [id number] #### [facility] (DEFAULT) [address] [place] [address] Platelet 272 x10 Normal 138-427 [facility] Comment on above: Performed By: #### 1 [id number], 1252050, [id number] #### [facility] (DEFAULT) [address] [place] [address] Platelet mean volume (Bld) [Entitic vol] 8.6 fL Normal 6.3-10.2 [facility] Comment on above: Performed By: #### 1 [id number], 6130913, [id number] #### [facility] (DEFAULT) [address] [place] [address] RBC 5.92 x10 High 3.70-5.30 [facility] Comment on above: Performed By: #### 1 [id number], 2959006, [id number] #### [facility] (DEFAULT) [address] [place] [address] WBC 10.9 x10 High 3.5-10.5 [facility] Comment on above: Performed By: #### 1 4846898, 9250919, [id number] #### [facility] (DEFAULT) [address] [place] [address] ECG 12 leadon 07-05-2024 Ventricular Rate : 7 3 BPM Atrial Rate : 73 BPM P-R Interval : 150 ms QRS Duration : 96 ms Q-T Interval : 398 ms QTC Calculation(Bazett) : 438 ms Calculated P [place] : 10 degrees Calculated R [place] : 27 degrees Calculated T [place] : 20 degrees NORMAL SINUS RHYTHM NORMAL ECG Confirmed by DIA MACIEL MD ([id number]) on 07/05/2024 11:08:50 PM NAME : DERRELL AVITIA PID : [id number] : 1970 Gender : Male Race : ORD : [id number] Procedure Date : Jun 16 2024 10:38:31 Edit Date : Jul 05 2024 23:08:53 Diagnosis: NORMAL SINUS RHYTHM NORMAL ECG Confirmed by DIA MACIEL MD ([id number]) on 07/05/2024 11:08:50 PM Test Reason : Location : 117 : CA2RE Overread By : DIA MACIEL MD Edited By : DIA MACIEL MD Referred By : WILLIAM HOWELL Acquired by : Clare Ortiz, [facility] Radiology, Radiologmariam catherine MD - 07/05/2024 Ventricular Rate : 73 BPM Atrial Rate : 73 BPM P-R Interval : 150 ms QRS Duration : 96 ms Q-T Interval : 398 ms QTC Calculation(Bazett) : 438 ms Calculated P [place] : 10 degrees Calculated R [place] : 27 degrees Calculated T [place] : 20 degrees NORMAL SINUS RHYTHM NORMAL ECG Confirmed by DIA MACIEL MD ([id number]) on 07/05/2024 11:08:50 PM NAME : DERRELL AVITIA PID : [id number] : 1970 Gender : Male Race : ORD : [id number] Procedure Date : Jun 16 2024 10:38:31 Edit Date : Jul 05 2024 23:08:53 Diagnosis: NORMAL SINUS RHYTHM NORMAL ECG Confirmed by DIA MACIEL MD ([id number]) on 07/05/2024 11:08:50 PM Test Reason : Location : 117 : CA2RE Overread By : DIA MACIEL MD Edited By : DIA MACIEL MD Referred By : WILLIAM HOWELL Acquired by : Clare Ortiz [facility] ECG 12 leadOrdered By: Radio logist Radiology on 07-05-2024 [facility] Work Phone: [facility] CBC W AUTO DIFF BLDon Basophils/100 WBC (Bld) 0.8 % [facility] BASOPHILS # BLD AUTO 0.09 [facility] DIFFERENTIAL METHOD BLD Auto [facility] EOSINOPHIL # BLD AUTO 0.[address] [facility] LYMPHOCYTES # BLD AUTO 1.97 [facility] MONOCYTES # BLD AUTO 0.77 [facility] NEUTROPHILS # BLD AUTO 7.39 [facility] NRBC # BLD AUTO <0.01 [facility] NRBC/100 WBC BLD-RTO 0 /100 WBC [facility] PLATELET # BLD AUTO 308 [facility] PMV BLD AUTO 9.5 fL 9.0 - 12.7 fL [facility] WBC # BLD AUTO 10.92 [facility] Eosinophils/100 WBC (Bld) 5.7 % [facility] Erythrocyte distribution width (RBC) [Ratio] 14 % 11.5 - 15.0 % [facility] Hematocrit (Bld) [Volume fraction] 46 % 39.0 - 51.0 % [facility] Hemoglobin (Bld) [Mass/Vol] 15.7 g/dL 13.0 - 17.0 g/dL [facility] IMM GRANULOCYTES # BLD AUTO 0.08 [facility] IMM GRANULOCYTES/LEUK NFR BLD AUTO 0.7 % [facility] Interpretation and review of laboratory results Abnormal [facility] Lymphocytes/100 WBC (Bld) 18 % [facility] MCH (RBC) [Entitic mass] 26.9 pg 26.0 - 34.0 pg [facility] MCHC (RBC) [Mass/Vol] 34.1 g/dL 30.5 - 36.0 g/dL [facility] MCV (RBC) [Entitic vol] 78.8 fL Low 80.0 - 100.0 fL [facility] Monocytes/100 WBC (Bld) 7.1 % [facility] Neutrophils/100 WBC (Bld) 67.7 % [facility] RBC (Bld) [#/Vol] 5.84 10*6/uL 4.20 - 6.0 0 m/uL [facility] Specimen Type: BLOOD SPECIMEN Ordering Facility: [facility] Address: [address] [place], [place] [id number] Original Ordering Provider: WILLIAM MURRAY [facility] MR shoulder LT wo conon 12- MR shoulder LT wo con [facility] Main [address] [address] MRI Report Signed Patient: SadiDerrell Aracelis ESCOBEDO MR#: [id number] : 1970 Acct:[id number] Age/Sex: 53 / M ADM Date: 05/26/24 Loc: [facility] Room: Type: [facility] Attending Dr: Justina OROZCO Copies to: ERNESTO Brooke Ordering Provider: ERNESTO Brooke Date of Service: 05/26/24 MR/MR shoulder LT wo con: L SHOULDER SPRAIN EXAMINATION: MRI OF THE LEFT SHOULDER CLINICAL HISTORY: Fall 1 week ago. Pain left anterior shoulder COMPARISON: Left shoulder series 03/03/2019 TECHNIQUE: Multiecho, multiplanar imaging was performed with use of an extremity coil. No contrast was administered. FINDINGS: The examination is significantly limited due to open MRI configuration and loss of signal. This is particularly noted on the coronal T2 weighted imaging. Bones/Joints: Small joint effusion is noted. Degenerative changes are seen involving the AC joint. Labrum: Suboptimally visualized. No focal abnormality is seen. Biceps tendon: It appears to be situated within the bicipital groove. Supraspinatus: There appears be a complete tear involving the supraspinatus tendon at the level of the musculotendinous junction with retraction of approximately 2 cm from the greater tubercle. There is associated muscle atrophy suggesting a chronic process. Infraspinatus: Appears grossly intact. Teres Minor: Appears grossly intact. Subscapularis: Appears grossly intact. MR/MR shoulder LT wo con IMPRESSION: SIGNIFICANTLY LIMITED STUDY. THERE APPEARS TO BE A COMPLETE TEAR INVOLVING THE SUPRASPINATUS TENDON AT THE LEVEL OF THE MUSCULOTENDINOUS JUNCTION WITH RETRACTION APPROXIMATELY 2 CM FROM THE GREATER TUBERCLE. THERE APPEARS TO BE ASSOCIATED MUSCLE ATROPHY SUGGESTIVE OF A CHRONIC PROCESS. SMALL JOINT EFFUSION.. Impression dictated by: Raheem Lucero Jr., D.OSixto05/26/2024 10:59 AM Dictation Location: [place] [address] Transcribed By: [facility] 05/26/24 1059 Dictated By: Raheem Lucero Jr, DO 05/26/24 1042 Signed By: 05/26/24 1059 Normal [facility] XR pre/post mri xrayon 05-26 XR pre/post mri xray [facility] [place] [address] XRay Report Signed Patient: Derrell Avitia JR MR#: [id number] : 1970 Acct:[id number] Age/Sex: 53 / M ADM Date: 05/26/24 Loc: [facility] Room: Type: [facility] Attending Dr: Justina OROZCO Copies to: ERNESTO Brooke Ordering Provider: ERNESTO Brooke Date of Service: 05/26/24 XR/XR pre/post mri xray: LT SHOULDER PRES Left shoulder 2 views. Reason for exam: Fall 1 week ago. Anterior shoulder pain. FINDINGS: Mild degenerative changes of the AC joint. No acute bony process is seen. Bones are grossly demineralized. XR/XR pre/post mri xray IMPRESSION: Mild degenerative changes without acute bony process. Impression dictated by: Raheem Lucero Jr., D.O.05/26/2024 3:01 PM Dictation Location: [place] [address] Transcribed By: [facility] 05/26/24 1501 Dictated By: Raheem Lucero Jr, DO 05/26/24 1500 Signed By: 05/26/24 1501 Normal [facility] XR KNEE RT 3 VWSon 4 XR KNEE RT 3 VWS XR KNEE RT 3 VWS History: Fall, knee pain Exam: Right knee 3 views Comparison: None Findings: No fracture or dislocation. No osseous destruction or knee effusion. Moderate tricompartmental osteoarthritis. Impression: No acute fracture. Finalized by Shanel Contreras MD on 05/19/2024 10:02 AM Normal [facility] XR SHOULDER LT MIN 2 VWSon 1 07-20-2023 XR SHOULDER LT MIN 2 VWS XR SHOULDER LT MIN 2 VWS CLINICAL INFORMATION: L shoulder pain after fall TECHNIQUE/PROCEDURE: 4 views of the left shoulder. COMPARISON: None. FINDINGS: Normal alignment. No fracture or periosteal reaction. Acromioclavicular spurring. Irregularity about the greater tuberosity could be seen with chronic rotator cuff pathology. The visualized portions of the chest in the soft tissues are negative. IMPRESSION: No acute osseous abnormality. Finalized by Efraín Peter MD on 05/19/2024 10:00 AM Normal [facility] COMP METAB 2000 PNL SERP Prabhjot 04-07-2024 Albumin [Mass/Vol] 4.6 g/dL 3.9 - 4.9 g/dL [facility] ALP [Catalytic activity/Vol] 324 U/L High 38 - 113 U/L [facility] ALT [Catalytic activity/Vol] 98 U/L High 10 - 54 U/L [facility] Anion gap [Moles/Vol] 15 mmol/L 8 - 15 mmol/L [facility] Calcium [Mass/Vol] 10 mg/dL 8.5 - 10. 2 mg/dL [facility] AST SERPL-CCNC 58 U/L High 14 - 40 U/L [facility] BILIRUB SERPL-MCNC 0.4 mg/dL 0.2 - 1.3 mg/dL [facility] PROT SERPL-MCNC 9.1 g/dL High 6.3 - 8. 0 g/dL [facility] Chloride [Moles/Vol] 101 mmol/L 98 - 10 7 mmol/L [facility] CO2 [Moles/Vol] 20 mmol/L Low 22 - 30 mmol/L [facility] Creatinine [Mass/Vol] 0.73 mg/dL 0.73 - 1.22 mg/dL [facility] GFR/1.73 sq M.predicted CKD-EPI (S/P/Bld) [Vol rate/Area] 107 - PINF [facility] Comment on above: Estimated Glomerular Filtration Rate (eGFR) is calculated using the 2020 CKD-EPI creatinine equation. This equation utilizes serum creatinine, sex, and age as parameters. The creatinine assay has traceable calibration to isotope dilution-mass spectrometry. Refer to KDIGO guidelines for clinical interpretation. In patients with unstable renal function, e.g. those with acute kidney injury, the eGFR may not accurately reflect actual GFR. Glucose [Mass/Vol] 224 mg/dL High 74 - 99 mg/dL [facility] Comment on above: The [place] Diab[employer] Association (ADA) provides guidance for cutoff values for fasting glucose and random glucose. The ADA defines fasting as no caloric intake for at least 8 hours. Fasting plasma glucose results between 100 to 125 mg/dL indicate increased risk for diabetes (prediabetes). Fasting plasma glucose results greater than or equal to 126 mg/dL meet the criteria for diagnosis of diabetes. In the absence of unequivocal hyperglycemia, results should be confirmed by repeat testing. In a patient with classic symptoms of hyperglycemia or hyperglycemic crisis, random plasma glucose results greater than or equal to 200 mg/dL meet the criteria for diagnosis of diabetes. Reference: Standards of Medical Care in Diabetes 2016, [place] [employer] Association. Diabetes Care. 2016.39(Suppl 1). Interpretation and review of laboratory results Abnormal [facility] Potassium [Moles/Vol] 4.7 mmol/L 3.7 - 5.1 mmol/L [facility] Sodium [Moles/Vol] 136 mmol/L 136 - 144 mmol/L [facility] Urea nitrogen [Mass/Vol] 19 mg/dL 9 - 24 mg/dL [facility] Specimen Type: BLOOD SPECIMEN Ordering Facility: [facility] Address: [address] [place] [address] Original Ordering Provider: WILLIAM HOWELL [facility] FLOW CYTOMETRY FOR LEUKE EZEQUIEL/LYMPHOMA (FCLL) PERFORMABLEon 03-19-2024 [facility] FLOW CYTOMETRY ORDER STATUS Results will be reported under F case ID when completed [facility] Specimen Type: BONE MARROW SPECIMEN Ordering Facility: [facility] Address: [address] [place] [address] Original Ordering Provider: WILLIAM MURRAY FLOW CYTOMETRY FOR LEUKEMIA/ LYMPHOMA (FCLL) PERFORMABLEOrdered By: Marjorie Hopper on 03-19-2024 Flow Cytometry Order Status Results will be reported under F case ID when completed [facility] GLUCOSE, BLOOD (POC)on 03-19 Glucose [Mass/Vol] 143 mg/dL Abnormal 74 - 99 mg/dL [facility] Comment on above: Location:[facility], [address] [place] [address], [facility] The Accu-Chek Inform II glucose meter has not been approved for testing on patients receiving intensive medical intervention or therapy and results from this point of care glucose test should not be used for patient management decisions in these cases. Inaccurate results may also occur from other interfering factors, such as N-acetylcysteine (blood concentrations of greater than 5mg/dL), galactose, extremes of hematocrit (<10 or >65), or high doses of ascorbic acid (vitamin C) greater than 3mg/dL. Consider alternate testing mechanisms (e.g. core lab, blood gas instrument) in the above situations. Interpretation and review of laboratory results Abnormal [facility] No Panel Informationon 03-19 [facility] CBC W AUTO DIFF BLDon Basophils/100 WBC (Bld) 1.0 % [facility] BASOPHILS # BLD AUTO 0.[address] [facility] DIFFERENTIAL METHOD BLD Auto [facility] EOSINOPHIL # BLD AUTO 0.[address] [facility] LYMPHOCYTES # BLD AUTO 2.54 [facility] MONOCYTES # BLD AUTO 0.76 [facility] NEUTROPHILS # BLD AUTO 6.35 [facility] NRBC # BLD AUTO <0.01 [facility] NRBC/100 WBC BLD-RTO 0.0 /100 WBC [facility] PLATELET # BLD AUTO 283 [facility] PMV BLD AUTO 9.9 fL 9.0 - 12.7 fL [facility] WBC # BLD AUTO 10.51 [facility] Eosinophils/100 WBC (Bld) 6.1 % [facility] Erythrocyte distribution width (RBC) [Ratio] 14.9 % 11.5 - 15.0 % [facility] Hematocrit (Bld) [Volume fraction] 49.4 % 39.0 - 51.0 % [facility] Hemoglobin (Bld) [Mass/Vol] 16.6 g/dL 13.0 - 17.0 g/dL [facility] IMM GRANULOCYTES # BLD AUTO 0.[address] [facility] IMM GRANULOCYTES/LEUK NFR BLD AUTO 1.0 % [facility] Interpretation and review of laboratory results Abnormal [facility] Lymphocytes/100 WBC (Bld) 24.2 % [facility] MCH (RBC) [Entitic mass] 27.0 pg 26.0 - 34.0 pg [facility] MCHC (RBC) [Mass/Vol] 33.6 g/dL 30.5 - 36.0 g/dL [facility] MCV (RBC) [Entitic vol] 80.5 fL 80.0 - 100.0 fL [facility] Monocytes/100 WBC (Bld) 7.2 % [facility] Neutrophils/100 WBC (Bld) 60.5 % [facility] RBC (Bld) [#/Vol] 6.14 10*6/uL High 4.20 - 6.0 0 m/uL [facility] Specimen Type: BLOOD SPECIMEN Ordering Facility: [facility] Address: [place] [address] Original Ordering Provider: WILLIAM MURRAY [facility] EMG 1 Extremeityon Carpal tunnel, right , mild Ulnar neuropathy, right, mild, 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, non localizable [facility] NVC 7-8 Nerveson 02-26-2024 Carpal tunnel, right , mild Ulnar neuropathy, right, mild, 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, non localizable [facility] ECG COMPLETEon 01-22-2024 Atrial Rate 57 BPM [facility] Calculated P [place] 8 degrees [facility] Calculated R [place] 20 degrees [facility] Calculated T [place] 13 degrees [facility] P-R Interval 140 ms [facility] QRS Duration 90 ms [facility] QT Interval 414 ms [facility] QTC Calculation (Bazett) 402 ms [facility] Ventricular Rate 57 BPM [facility] NAME : DERRELL AVIITA PID : [id number] : 1970 Gender : Male Race : ORD : Procedure Date : Dec 24 2023 10:24:00 Edit Date : Jan 22 2024 18:26:53 Diagnosis: SINUS BRADYCARDIA MINIMAL VOLTAGE CRITERIA FOR LVH, MAY BE NORMAL VARIANT BORDERLINE ECG Confirmed by AMARILIS MIRANDA M.D. ([id number]) on 01/22/2024 6:22:31 PM Test Reason : Location : 117 : CA2RE Overread By : AMARILIS MIRANDA M.D. Edited By : AMARILIS MIRANDA M.D. Referred By : william howell Acquired by : ashlyn santos, [facility] Atrial Rate 56 BPM [facility] Calculated P [place] 47 degrees [facility] Calculated R [place] 21 degrees [facility] Calculated T [place] 14 degrees [facility] P-R Interval 148 ms [facility] QRS Duration 84 ms [facility] QT Interval 410 ms [facility] QTC Calculation (Bazett) 395 ms [facility] Ventricular Rate 56 BPM [facility] NAME : DERRELL AVITIA PID : [id number] : 1970 Gender : Male Race : ORD : Procedure Date : Dec 24 2023 10:23:19 Edit Date : Jan 22 2024 18:26:52 Diagnosis: SINUS BRADYCARDIA MINIMAL VOLTAGE CRITERIA FOR LVH, MAY BE NORMAL VARIANT BORDERLINE ECG Confirmed by AMARILIS MIRANDA M.D. () on 01/22/2024 6:22:31 PM Test Reason : Location : 117 : CA2RE Overread By : AMARILIS MIRANDA M.D. Edited By : AMARILIS MIRANDA M.D. Referred By : william howell [facility] : [facility] Atrial Rate 57 BPM [facility] Calculated P [place] 3 degrees [facility] Calculated R [place] 25 degrees [facility] Calculated T [place] 15 degrees [facility] P-R Interval 140 ms [facility] QRS Duration 92 ms [facility] QT Interval 416 ms [facility] QTC Calculation (Bazett) 404 ms [facility] Ventricular Rate 57 BPM [facility] SINUS BRADYCARDIA MINIMAL VOLTAGE CRITERIA FOR LVH, MAY BE NORMAL VARIANT BORDERLINE ECG Confirmed by AMARILIS MIRANDA M.D. () on 01/22/2024 6:22:30 PM [facility] NAME : DERRELL AVITIA PID : [id number] : 1970 Gender : Male Race : ORD : Procedure Date : Dec 24 2023 10:22:46 Edit Date : Jan 22 2024 18:26:51 Diagnosis: SINUS BRADYCARDIA MINIMAL VOLTAGE CRITERIA FOR LVH, MAY BE NORMAL VARIANT BORDERLINE ECG Confirmed by AMARILIS MIRANDA M.D. () on 01/22/2024 6:22:30 PM Test Reason : Location : 117 : CA2RE Overread By : AMARILIS MIRANDA M.D. Edited By : AMARILIS MIRANDA M.D. Referred By : william howell Acquired by : ashlyn santos [facility] No Panel Informationon 01-21 SINUS BRADYCARDIA MINIMAL VOLTAGE CRITERIA FOR LVH, MAY BE NORMAL VARIANT BORDERLINE ECG Confirmed by AMARILIS MIRANDA M.D. () on 01/22/2024 6:22:31 PM [facility] Amylase SerPl-cCncon 024 Amylase [Catalytic activity/Vol] 37 U/L Normal 30-104 [facility] Comment on above: Order Comment: Speci men Type: BLOOD SPECIMENOrdering Facility: [facility] Address: [address] [place] [address] Performed By: #### 1 798-8, 90473-3, 2777-1, 3040-3, 09965-8 ####[facility] [id number] [place] [address] [place] Bilirub Conj SerPl-mCncon Bilirubin.conjugated [Mass/Vol] mg/dL Normal <0.2 [facility] Comment on above: Order Comment: Speci men Type: BLOOD SPECIMENOrdering Facility: [facility] Address: [address] [place] [address] Performed By: #### 1 798-8, 99139-9, 2777-1, 3040-3, 68623-1 ####[facility] [id number] [place] [address] [place] CBC W Auto Differential pane l (Bld)on 12-24-2023 Basophils (Bld) [#/Vol] 0.10 10*3/uL Normal <0.11 [facility] Comment on above: Order Comment: Speci men Type: BLOOD SPECIMEN Ordering Facility: [facility] Address: [address] [place] [address] Performed By: #### 5 7021-8 #### [facility] [id number] [address] [place] [address] [place] Basophils/100 WBC (Bld) 0.9 % Normal [facility] Comment on above: Order Comment: Speci men Type: BLOOD SPECIMEN Ordering Facility: [facility] Address: [address] [place] [address] Performed By: #### 5 7021-8 #### [facility] [id number] [address] [place] [address] [place] Differential cell count method Nom (Bld) Auto Normal [facility] Comment on above: Order Comment: Speci men Type: BLOOD SPECIMEN Ordering Facility: [facility] Address: [address] [place] [address] Performed By: #### 5 7021-8 #### [facility] [place] [id number] [address] [place] [address] [place] Eosinophils (Bld) [#/Vol] 0.73 10*3/uL High <0.46 [facility] Comment on above: Order Comment: Speci men Type: BLOOD SPECIMEN Ordering Facility: [facility] Address: [address] [place] [address] Performed By: #### 5 7021-8 #### [facility] [id number] [address] [place] [address] [place] Eosinophils/100 WBC (Bld) 6.9 % Normal [facility] Comment on above: Order Comment: Speci men Type: BLOOD SPECIMEN Ordering Facility: [facility] Address: [address] [place] [address] Performed By: #### 5 7021-8 #### [facility] [id number] [address] [place] [address] [place] Erythrocyte distribution width (RBC) [Ratio] 14.3 % Normal 11.5-15.0 [facility] Comment on above: Order Comment: Speci men Type: BLOOD SPECIMEN Ordering [facility]: [facility] Address: [address] [place] [address] Performed By: #### 5 7021-8 #### [facility] [id number] [address] [place] [address] [place] Hematocrit (Bld) [Volume fraction] 42.0 % Normal 39.0-51.0 [facility] Comment on above: Order Comment: Speci men Type: BLOOD SPECIMEN Ordering [facility]: [facility] Address: [address] [place] [address] Performed By: #### 5 7021-8 #### [facility] [id number] [address] [place] [address] [place] Hemoglobin (Bld) [Mass/Vol] 14.4 g/dL Normal 13.0-17.0 [facility] Comment on above: Order Comment: Speci men Type: BLOOD SPECIMEN Ordering Facility: [facility] Address: [address] [place] [address] Performed By: #### 5 7021-8 #### [facility] [id number] [address] [place] [address] [place] Immature granulocytes (Bld) [#/Vol] 0.15 10*3/uL High <0.10 [facility] Comment on above: Order Comment: Speci men Type: BLOOD SPECIMEN Order[facility]: [facility] Address: [address] [place] [address] Performed By: #### 5 7021-8 #### [facility] [id number] [address] [place] [address] [place] Immature granulocytes/100 WBC (Bld) 1.4 % Normal [facility] Comment on above: Order Comment: Speci men Type: BLOOD SPECIMEN Ordering [facility]: [facility] Address: [address] [place] [address] Performed By: #### 5 7021-8 #### [facility] [id number] [address] [place] [address] [place] Lymphocytes (Bld) [#/Vol] 2.60 10*3/uL Normal 1.00-4.00 [facility] Comment on above: Order Comment: Speci men Type: BLOOD SPECIMEN Order[facility]: [facility] Address: [address] [place] [address] Performed By: #### 5 7021-8 #### [facility] [id number] [address] [place] [address] [place] Lymphocytes/100 WBC (Bld) 24.5 % Normal [facility] Comment on above: Order Comment: Speci men Type: BLOOD SPECIMEN Order[facility]: [facility] Address: [address] [place] [address] Performed By: #### 5 7021-8 #### [facility] [place] [id number] [address] [place] [address] [place] MCH (RBC) [Entitic mass] 27.2 pg Normal 26.0-34.0 [facility] Comment on above: Order Comment: Speci men Type: BLOOD SPECIMEN Order[facility] Address: [address] [place] [address] Performed By: #### 5 7021-8 #### [facility] [id number] [address] [place] [address] [place] MCHC (RBC) [Mass/Vol] 34.3 g/dL Normal 30.5-36.0 [facility] Comment on above: Order Comment: Speci men Type: BLOOD SPECIMEN Order[facility] Address: [address] [place] [address] Performed By: #### 5 7021-8 #### [facility] [id number] [address] [place] [address] [place] MCV (RBC) [Entitic vol] 79.4 fL Low 80.0-100.0 [facility] Comment on above: Order Comment: Speci men Type: BLOOD SPECIMEN Order[facility] Address: [address] [place] [address] Performed By: #### 5 7021-8 #### [facility] [id number] [address] [place] [address] [place] Monocytes (Bld) [#/Vol] 0.78 10*3/uL Normal <0.87 [facility] Comment on above: Order Comment: Speci men Type: BLOOD SPECIMEN [facility] Address: [address] [place] [address] Performed By: #### 5 7021-8 #### [facility] CLIA [id number] [address] [place] [address] [place] Monocytes/100 WBC (Bld) 7.3 % Normal [facility] Comment on above: Order Comment: Speci men Type: BLOOD SPECIMEN [facility] Address: [address] [place] [address] Performed By: #### 5 7021-8 #### [facility] [place] [id number] [address] [place] [address] [place] Neutrophils (Bld) [#/Vol] 6.26 10*3/uL Normal 1.45-7.50 [facility] Comment on above: Order Comment: Speci men Type: BLOOD SPECIMEN [facility] Address: [address] [place] [address] Performed By: #### 5 7021-8 #### [facility] [place] [id number] [address] [place] [address] [place] Neutrophils/100 WBC (Bld) 59.0 % Normal [facility] Comment on above: Order Comment: Speci men Type: BLOOD SPECIMEN [facility] Address: [address] [place] [address] Performed By: #### 5 7021-8 #### [facility] [place] [id number] [address] [place] [address] [place] Nucleated RBC (Bld) [#/Vol] 10*3/uL Normal <0.01 [facility] Comment on above: Order Comment: Speci men Type: BLOOD SPECIMEN [facility] Address: [address] [place] [address] Performed By: #### 5 7021-8 #### [facility] CLIA [id number] [address] [place] [address] [place] Nucleated RBC/100 WBC (Bld) [Ratio] 0.0 /100 WBC Normal [facility] Comment on above: Order Comment: Speci men Type: BLOOD SPECIMEN [facility] Address: [address] [place] [address] Performed By: #### 5 7021-8 #### [facility] [id number] [address] [place] [address] [place] Platelet mean volume (Bld) [Entitic vol] 9.5 fL Normal 9.0-12.7 [facility] Comment on above: Order Comment: Speci men Type: BLOOD SPECIMEN Order[facility] Address: [address] [place] [address] Performed By: #### 5 7021-8 #### [facility] [id number] [address] [place] [address] [place] Platelets (Bld) [#/Vol] 325 10*3/uL Normal 150-400 [facility] Comment on above: Order Comment: Speci men Type: BLOOD SPECIMEN [facility] Address: [address] [place] [address] Performed By: #### 5 7021-8 #### [facility] [id number] [address] [place] [address] [place] RBC (Bld) [#/Vol] 5.29 10*6/uL Normal 4.20-6.00 [facility] Comment on above: Order Comment: Speci men Type: BLOOD SPECIMEN [facility] Address: [address] [place] [address] Performed By: #### 5 7021-8 #### [facility] [place] [id number] [address] [place] [address] [place] WBC (Bld) [#/Vol] 10.62 10*3/uL Normal 3.70-11.00 [facility] Comment on above: Order Comment: Speci men Type: BLOOD SPECIMEN [facility] Address: [address] [place] [address] Performed By: #### 5 7021-8 #### [facility] [id number] [address] [place], [place] [address] [place] [address] [place] CK SerPl-cCncon 12-24-2023 CK [Catalytic activity/Vol] 34 U/L Low 51-298 [facility] Comment on above: Order Comment: Speci men Type: BLOOD SPECIMEN [facility] Address: [address] [place] [address] Performed By: #### 5 7021-8 #### [facility] [id number] [address] [place] [address] [place] Cholest SerPl-mCncon 024 Cholesterol [Mass/Vol] 185 mg/dL Normal <200 [facility] Comment on above: Order Comment: Speci men Type: BLOOD SPECIMENOrdering Facility: [facility] Address: [address] [place] [address] Result Comment: <200 mg/dL, Desirable 200-239 mg/dL, Borderline high >239 mg/dL, High Reference: 1. National Cholesterol Education Program ATP III Guideline At-A-Glance Quick Desk Reference: National Heart, Lung, and Blood English. National Institutes of Health. 2001: NIH Publication No. 01-3305. Performed By: #### 2 093-3 ####[facility] [id number] [place] [address] [place] Comprehensive metabolic 2000 panelon 12-24-2023 Albumin [Mass/Vol] 3.9 g/dL Normal 3.9-4.[address] [facility] Comment on above: Order Comment: Speci men Type: BLOOD SPECIMENOrdering Facility: [facility] Address: [address] [place] [address] Performed By: #### 2 4323-8, 3084-1, 8 ####[facility] [id number] [place] [address] [place] ALP [Catalytic activity/Vol] 347 U/L High 38-113 [facility] Comment on above: Order Comment: Speci men Type: BLOOD SPECIMENOrdering Facility: [facility] Address: [address] [place] [address] Performed By: #### 2 4323-8, 308-1, 8 ####[facility] [id number] [place] [address] [place] ALT [Catalytic activity/Vol] 57 U/L High 10-54 [facility] Comment on above: Order Comment: Speci men Type: BLOOD SPECIMENOrdering Facility: [facility] Address: [address] [place] [address] Performed By: #### 2 4323-8, 308-1, 2571-01 ####[facility] [id number] [place] [address] [place] Anion gap [Moles/Vol] 11 mmol/L Normal 8-15 [facility] Comment on above: Order Comment: Speci men Type: BLOOD SPECIMENOrdering Facility: [facility] Address: [address] [place] [address] Performed By: #### 2 4323-8, 308-1, 8 ####[facility] [id number] [place] [address] [place] AST [Catalytic activity/Vol] 43 U/L High 14-40 [facility] Comment on above: Order Comment: Speci men Type: BLOOD SPECIMENOrdering Facility: [facility] Address: [address] [place] [address] Performed By: #### 2 4323-8, 308-1, 8 ####[facility] [id number] [place] [address] [place] Bilirubin [Mass/Vol] 0.3 mg/dL Normal 0.2-1.3 [facility] Comment on above: Order Comment: Speci men Type: BLOOD SPECIMENOrdering Facility: [facility] Address: [address] [place] [address] Performed By: #### 2 4323-8, 3084-1, 8 ####[facility] [id number] [place] [address] [place] Calcium [Mass/Vol] 9.6 mg/dL Normal 8.5-10.[address] [facility] Comment on above: Order Comment: Speci men Type: BLOOD SPECIMENOrdering Facility: [facility] Address: [address] [place] [address] Performed By: #### 2 4323-8, 308-1, 8 ####[facility] [id number] [place] [address] [place] Chloride [Moles/Vol] 100 mmol/L Normal 98-107 [facility] Comment on above: Order Comment: Speci men Type: BLOOD SPECIMENOrdering Facility: [facility] Address: [address] [place] [address] Performed By: #### 2 4323-8, 308-1, 8 ####[facility] [id number] [place] [address] [place] CO2 [Moles/Vol] 25 mmol/L Normal 22-30 [facility] Comment on above: Order Comment: Speci men Type: BLOOD SPECIMENOrdering Facility: [facility] Address: [address] [place] [address] Performed By: #### 2 4323-8, 308-1, 8 ####[facility] [id number] [place] [address] [place] Creatinine [Mass/Vol] 0.57 mg/dL Low 0.73-1.22 [facility] Comment on above: Order Comment: Rosa gaspar Type: BLOOD SPECIMENOrdering Facility: [facility] Address: [address] [place] [address] Performed By: #### 2 4323-8, 3084-1, 8 ####[facility] [id number] [place] [address] [place] Creatinine and Glomerular filtration rate.predicted panel (S/P/Bld) 116 mL/min/1.73m??? Normal >=60 [facility] Comment on above: Order Comment: Rosa gaspar Type: BLOOD SPECIMENOrdering Facility: [facility] Address: [address] [place] [address] Result Comment: Najma mated Glomerular Filtration Rate [...] actual GFR. Performed By: #### 2 4323-8, 3083-1, 8 ####[facility] [id number] [place] [address] [place] Glucose [Mass/Vol] 221 mg/dL High 74-[address] [facility] Comment on above: Order Comment: Rosa gaspar Type: BLOOD SPECIMENOrdering Facility: [facility] Address: [address] [place] [address] Result Comment: The [place] Diabetes Association (ADA) provides guidance for cutoff values for fasting glucose and random glucose. The ADA defines fasting as no caloric intake for at least 8 hours. Fasting plasma glucose results between 100 to 125 mg/dL indicate increased risk for diabetes (prediabetes). Fasting plasma glucose results greater than or equal to 126 mg/dL meet the criteria for diagnosis of diabetes. In the absence of unequivocal hyperglycemia, results should be confirmed by repeat testing. In a patient with classic symptoms of hyperglycemia or hyperglycemic crisis, random plasma glucose results greater than or equal to 200 mg/dL meet the criteria for diagnosis of diabetes. Reference: Standards of Medical Care in Diabetes 2016, [place] [employer] Association. Diabetes Care. 2016.39(Suppl 1). Performed By: #### 2 4323-8, 3083-1, 2571-01 ####[facility] [id number] [place] [address] [place] Potassium [Moles/Vol] 4.8 mmol/L Normal 3.7-5.1 [facility] Comment on above: Order Comment: Speci men Type: BLOOD SPECIMENOrdering Facility: [facility] Address: [address] [place] [address] Performed By: #### 2 4323-8, 3083-06, 2571-01 ####[facility] [place] [id number] [place] [address] [place] Protein [Mass/Vol] 7.5 g/dL Normal 6.3-8.[address] [facility] Comment on above: Order Comment: Speci men Type: BLOOD SPECIMENOrdering Facility: [facility] Address: [address] [place] [address] Performed By: #### 2 4323-8, 3083-06, 2571-01 ####[facility] [id number] [place] [address] [place] Sodium [Moles/Vol] 136 mmol/L Normal 136-[address] [facility] Comment on above: Order Comment: Speci men Type: BLOOD SPECIMENOrdering Facility: [facility] Address: [address] [place] [address] Performed By: #### 2 4323-8, 3083-06, 2571-01 ####[facility] [id number] [address] [address] [place] Urea nitrogen [Mass/Vol] 17 mg/dL Normal 9-24 [facility] Comment on above: Order Comment: Speci men Type: BLOOD SPECIMENOrdering Facility: [facility] Address: [address] [place] [address] Performed By: #### 2 4323-8, 3084-1, 2571-8 ####[facility] [id number] [place] [address] [place] HIGH SENSITIVITY TROPONIN To n 12-24-2023 Troponin T.cardiac High sensitivity method [Mass/Vol] 37 ng/L High <12 [facility] Comment on above: Order Comment: Speci men Type: BLOOD SPECIMEN [facility] Address: [address] [place] [address] Performed By: #### 5 7021-8 #### [facility] [place] [id number] [address] [place] [address] [place] Lipase SerPl-cCncon 12-24-19 24 Lipase [Catalytic activity/Vol] 26 U/L Normal 16-61 [facility] Comment on above: Order Comment: Speci men Type: BLOOD SPECIMENOrdering Facility: [facility] Address: [address] [place] [address] Performed By: #### 1 798-8, 24376-5, 2777-1, 3040-3, 57630-2 ####[facility] [id number] [place] [address] [place] Magnesium SerPl-mCncon 12-23 Magnesium [Mass/Vol] 2.0 mg/dL Normal 1.7-2.3 [facility] Comment on above: Order Comment: Speci men Type: BLOOD SPECIMENOrdering Facility: [facility] Address: [address] [place] [address] Performed By: #### 1 798-8, 70897-7, 2777-1, 3040-3, 97323-3 ####[facility] [id number] [place] [address] [place] PT panel Coag (PPP)on 2023 INR Coag (PPP) [Relative time] 1.0 {INR} Normal 0.9-1.3 [facility] Comment on above: Order Comment: Rosa gaspar Type: BLOOD SPECIMENOrdering Facility: [facility] Address: [address] [place] [address] Result Comment: Nyla min K Antagonist (VKA) Therapeutic Range: INR 2 to 3 (Target INR of 2.5) Note: For patients treated with VKA drugs, such as warfarin, the [place] [employer] 2012 Guideline recommends a therapeutic INR range of 2 to 3 (target INR of 2.5). This recommendation includes high-risk patients with antiphospholipid syndrome with previous arterial or venous thromboembolism, current-generation mechanical or bioprosthetic aortic heart valve replacement. Note: Patients with mechanical aortic valve replacement and additional risk factors for thromboembolic events (atrial fibrillation, previous thromboembolism, LV dysfunction, hypercoagulable conditions) or an older generation mechanical AVR (i.e., ball in-Cage) or any mechanical MVR should have a INR therapeutic range of 2.5 to 3.5 (target INR of 3). Coby REYES, et al. Chest 2012, 141:7S-47S Surinder RA, et al. JAC 2017, 70: 252-289 Performed By: #### 3 4528-0, 65438-6 ####[facility] [id number] [place] [address] [place] PT Coag (PPP) [Time] 10.5 s Normal 9.7-13.0 [facility] Comment on above: Order Comment: Rosa gaspar Type: BLOOD SPECIMENOrdering Facility: [facility] Address: [address] [id number] Performed By: #### 3 4528-0, 09499-3 ####[facility] [id number] [place] [address] [place] Phosphate SerPl-mCncon 12-23 Phosphate [Mass/Vol] 4.0 mg/dL Normal 2.7-4.8 [facility] Comment on above: Order Comment: Speci men Type: BLOOD SPECIMENOrdering Facility: [facility] Address: [address] [place] [address] Performed By: #### 1 798-8, 63872-5, 2777-1, 3040-3, 17337-7 ####[facility] [id number] [place] [address] [place] Trigl SerPl-mCncon Triglyceride [Mass/Vol] 338 mg/dL High <150 [facility] Comment on above: Order Comment: Speci men Type: BLOOD SPECIMENOrdering Facility: [facility] Address: [address] [place] [address] Result Comment: <150 mg/dL, Normal 150-199 mg/dL, Borderline high 200-499 mg/dL, High >499 mg/dL, Very high Reference: 1. National Cholesterol Education Program ATP III Guideline At-A-Glance Quick Desk Reference: National Heart, Lung, and Blood English. National Institutes of Health. 2001: NIH Publication No. 01-3305. Performed By: #### 2 4323-8, 3084-1, 257-8 ####[facility] [id number] [place] [address] [place] Triglyceride [Mass/Vol]on FASTING TIME 10 hrs Normal [facility] Comment on above: Order Comment: Speci men Type: BLOOD SPECIMENOrdering Facility: [facility] Address: [address] [place] [address] Performed By: #### 2 4323-8, 3084-1, 257-8 ####[facility] [id number] [address] [place] URINALYSIS, DIPSTICK ONLYon 12-24-2023 Bilirubin Ql (U) Negative Normal Negative [facility] Comment on above: Order Comment: Speci men Type: URINE SPECIMEN [facility] Address: [address] [place] [address] Performed By: #### U A #### [facility] CLIA [id number] [address] [place] [address] [place] Clarity (Unsp spec) Clear Normal Clear [facility] Comment on above: Order Comment: Speci men Type: URINE SPECIMEN [facility] Address: [address] [place] [address] Performed By: #### U A #### [facility] CLIA [id number] [address] [place] [address] [place] Color (U) Yellow Normal Yellow [facility] Comment on above: Order Comment: Speci men Type: URINE SPECIMEN [facility] Address: [address] [place] [address] Performed By: #### U A #### [facility] CLIA [id number] [address] [place] [address] [place] Glucose Test strip (U) [Mass/Vol] 3+ Abnormal Negative [facility] Comment on above: Order Comment: Speci men Type: URINE SPECIMEN [facility] Address: [address] [place] [address] Performed By: #### U A #### [facility] CLIA [id number] [address] [place] [address] [place] Hemoglobin Ql (U) Negative Normal Negative [facility] Comment on above: Order Comment: Speci men Type: URINE SPECIMEN [facility] Address: [address] [place] [address] Performed By: #### U A #### [facility] CLIA [id number] [address] [place] [address] [place] Ketones Ql (U) Negative Normal Negative [facility] Comment on above: Order Comment: Speci men Type: URINE SPECIMEN [facility] Address: [address] [place] [address] Performed By: #### U A #### [facility] CLIA [id number] [address] [place] [address] [place] Leukocyte esterase Test strip Ql (U) Negative Normal Negative [facility] Comment on above: Order Comment: Speci men Type: URINE SPECIMEN [facility] Address: [address] [place] [address] Performed By: #### U A #### [facility] CLIA [id number] [address] [place] [address] [place] Nitrite Ql (U) Negative Normal Negative [facility] Comment on above: Order Comment: Speci men Type: URINE SPECIMEN [facility] Address: [address] [place] [address] Performed By: #### U A #### [facility] CLIA [id number] [address] [place] [address] [place] pH (U) 5.5 [pH] Normal <8.5 [facility] Comment on above: Order Comment: Speci men Type: URINE SPECIMEN [facility] Address: [address] [place] [address] Performed By: #### U A #### [facility] CLIA [id number] [address] [place] [address] [place] Protein (U) [Mass/Vol] Negative Normal Negative [facility] Comment on above: Order Comment: Speci men Type: URINE SPECIMEN [facility] Address: [address] [place] [address] Performed By: #### U A #### [facility] CLIA [id number] [address] [place] [address] [place] Specific gravity (U) [Rel density] 1.034 High 1.005-1.030 [facility] Comment on above: Order Comment: Speci men Type: URINE SPECIMEN [facility] Address: [address] [place] [address] Performed By: #### U A #### [facility] [place] [id number] [address] [place] [address] [place] Urobilinogen Ql (U) 0.2 EU/dL Normal 0.2-1.0 EU/dL [facility] Comment on above: Order Comment: Speci men Type: URINE SPECIMEN [facility] Address: [address] [place] [address] Performed By: #### U A #### [facility] IA [id number] [address] [place] [address] [place] Urate SerPl-mCncon Urate [Mass/Vol] 2.5 mg/dL Low 4.0-8.1 [facility] Comment on above: Order Comment: Speci men Type: BLOOD SPECIMENOrdering Facility: [facility] Address: [address] [place] [address] Performed By: #### 2 4323-8, 3084-1, 2571-8 ####[facility] [id number] [place] [address] [place] aPTT PPPon 12-24-2023 aPTT Coag (PPP) [Time] 24.3 s Normal 23.0-32.4 [facility] Comment on above: Order Comment: Speci men Type: BLOOD SPECIMENOrdering Facility: [facility] Address: [address] [place] [address] Performed By: #### 3 4528-0, 35506-2 ####[facility] [id number] [place] [address] [place] CNPNon 12-15-2023 CNPN Telephone (HEMAMN) DERRELL AVITIA JR ([id number]) 1970 M Date Time Provider Department 12/15/23 WILLIAM HOWELL During your visit today, we recorded the following information about you: Emma Tuttle RN 12/15/2023 2:43 PM Signed STAFF-INITIATED RADIOLOGY BIOPSY / ASPIRATION / DRAIN REQUEST FORM Date: December 15, 2023 Time: 2:40 PM PATIENT CONTACT INFORMATION: Best way to reach patient cell phone SCHEDULING: Date: 03/19/2024 (Specific requests must be greater than 10 business days from the date of request) [facility]IOLOG[facility] SERVICE GROUP (Abdominal / Thoracic / MSK / Neuro): Bone marrow biopsy for study ACT 1919 SPECIFICS OF THE REQUEST (Please be as detailed as possible): Bone marrow biopsy and aspiration SPECIAL REQUESTS: TISSUE SAMPLE, LABWORK: Special Requests: trial [facility] 1919 MEDICAL DIAGNOSIS: CML (i.e. Known primary cancer or suspected diagnosis) IMAGING STUDY AND DATE THAT IS THE BASIS OF THE REQUEST: IR needed for bone marrow biopsy and aspiration (Note: Requests for random organ biopsies, specifically liver and kidney random biopsies do not need imaging.) IMAGING: n/a (If the imaging was obtained outside the [facility] system, PLEASE upload for review prior to approval.) Note to all persons requesting biopsies: All biopsy requests will be scheduled as quickly as possible, based on the clinical urgency, availability of appointment times, the need to hold anti-thrombolytic therapy (aspirin and other blood thinners) and the patient?s schedule, including the need for an available front end driver. If a percutaneous biopsy or drainage is not felt to be safe or an alternative method for establishing a diagnosis is possible, this will be discussed directly with the requesting physician. Emily Anthony LPN 12/15/2023 3:02 PM Signed BX. COORDINATOR INFORMATION LAB RESULTS: PT INR (no units) Date Value 06/11/2021 1.0 INR (no units) Date Value 10/01/2023 1.0 APTT (sec) Date Value 10/01/2023 28.1 06/11/2021 25.5 Platelet Count (k/uL) Date Value 10/01/2023 271 06/11/2021 275 Current Outpatient Medications Medication Sig glipiZIDE (GLUCOTROL) 5 mg tablet Take 1 tablet (5 mg) by mouth daily before breakfast. empagliflozin (JARDIANCE) 25 mg tablet Take 1 tablet by mouth daily with breakfast. pravastatin (PRAVACHOL) 80 mg tablet Take 1 tablet by mouth once daily. blood sugar diagnostic ([employer] PRECISION ADDISON STRIPS) test strip Use with blood glucose test one time daily insulin lispro (HUMALOG KWIKPEN) 100 unit/mL Inject 15 units with breakfast and lunch and 20 units with dinner plus sliding scale (Max daily dose of 91 units daily) amLODIPine (NORVASC) 10 mg tablet Take 10 mg by mouth. flash glucose sensor ([employer] MARY ANN 2 SENSOR) kit USE DIRECTED EVERY 14 DAYS lisinopril (ZESTRIL) 20 mg tablet Take 20 mg by mouth once daily. insulin glargine (LANTUS SOLOSTAR U-100 INSULIN) 100 unit/mL (3 mL) Inject 35 Units subcutaneously twice daily. flash glucose scanning reader (VANCLSTYLE MARY ANN 2 READER) Check glucose 4 times daily fluocinonide (LIDEX) 0.05 % ointment Apply to affected areas of rash twice daily x 2 weeks, then once daily x 2 weeks. NOT for face, armpits, or groin Insulin Syringe-Needle U-100 1 mL 25 x [...] POSIFLUSH) 10 mL INTRAVENOUS DIRECTED PRN ALLERGIES Allergen Reactions Opioids - Morphine * Vomiting, GI Upset FILMS SENT TO WORKSTATION: GUIDELINES FOR HOLDING ANTI-PLATELET AND ANTI- COAGULATION THERAPY: none on file NURSE SIGNATURE: Emily Anthony LPN DATE: December 15, 2023 TIME: 3:00 PM Jessee Jung MD 12/15/2023 4:22 PM Signed RADIOLOGIST REQUEST / APPROVAL FORM STAFF RADIOLOGIST: Dr. Kang PROCEDURE TO BE DONE UNDER: CT PROCEDURE REQUESTED: CORE Requested PROCEDURE: Approved TIME SLOT NEEDED: 1 Hour NOTES: CML SPECIAL LABS/ PROCESSING: None Pre-procedure labs: CBC: not needed INR: not needed COVID: not needed SIR Bleeding risk category for this procedure: low risk. Reference from [facility] [employer]: [email or web address] (more content not included)... Normal [facility] HIV Screen ([facility])on HIV Screen ([facility]) Non-Reactive Normal Nonreactive [facility] Comment on above: Order Comment: Which is this, the Source or the Person with the Exposure?: EXPOSURE Source Medical Record: UNK Exposed Result Comment: PERF ORMED BY: [place] [address] PATHOLOGIST COMMERCIAL AGENT ADITHYA JONES M.D. Performed By: #### H IV12 #### [address] #### HBSAG, HCV RX PCR, HBSAB #### [facility] , HIV Screen ChemBioOrdered By : Rosa Kilpatrick on 12-09-2023 HIV 1+2 IgG IA.rapid Ql (Bld) Non-Reactive Nonreactive [facility] Hep C Ab wRfx to Qnt PCRon 0 12-09-2023 Hepatitis C Virus Antibody Non-Reactive Normal Non Reactive [facility] Comment on above: Order Comment: Which is this, the Source or the Person with the Exposure?: EXPOSURE Source Medical Record: UNK Exposed Performed By: #### H IV12 #### [address] #### HBSAG, HCV RX PCR, HBSAB #### [facility] , Interpretation Hepatitis C Normal . [facility] Comment on above: Order Comment: Which is this, the Source or the Person with the Exposure?: EXPOSURE Source Medical Record: UNK Exposed Result Comment: Not infected with HCV unless early or acute infection is suspected (which may be delayed in an immunocompromised individual), or other evidence exists to indicate HCV infection. Performed By: #### H IV12 #### [address] #### HBSAG, HCV RX PCR, HBSAB #### [facility] , Hepatitis B Surface Antibody on 12-09-2023 Hepatitis B Surface Antibody Non-Reactive Normal . [facility] Comment on above: Order Comment: Which is this, the Source or the Person with the Exposure?: EXPOSURE Source Medical Record: UNK Exposed Result Comment: Non Reactive: Inconsistent with immunity, less than 10 mIU/mL Reactive: Consistent with immunity, greater than 9.9 mIU/mL Performed By: #### H IV12 #### [address] #### HBSAG, HCV RX PCR, HBSAB #### [facility] , Hepatitis B Surface Antigeno n 12-09-2023 HBsAg Screen Negative Normal Negative [facility] Comment on above: Order Comment: Which is this, the Source or the Person with the Exposure?: EXPOSURE Source Medical Record: UNK Exposed Result Comment: Perf ormed at: - [facility] [address] [id number] Office Technology Professor: Macho Guillen PhD, Phone: [phone] PERFORMED BY: [place] [address] PATHOLOGIST COMMERCIAL AGENT ADITHYA JONES M.D. Performed By: #### H IV12 #### [address] #### HBSAG, HCV RX PCR, HBSAB #### [facility] , BASIC METABOLIC PANLon 12-01 Anion gap [Moles/Vol] 9 mmol/L Normal 5-15 [facility] Comment on above: Performed By: #### C BCA, PINR, BMP #### [facility] ([id number]) [address], [address] [place] [address] Calcium [Mass/Vol] 9.8 mg/dL Normal 8.5-10.5 [facility] Comment on above: Performed By: #### C BCA, PINR, BMP #### [facility] ([id number]) [address], [facility] [address] [place] [address] Chloride [Moles/Vol] 99 mmol/L Normal 98-109 [facility] Comment on above: Performed By: #### C BCA, PINR, BMP #### [facility] ([id number]) [address], [address] [place] [address] CO2 [Moles/Vol] 27 mmol/L Normal 22-32 [facility] Comment on above: Performed By: #### C BCA, PINR, BMP #### [facility] ([id number]) [address], [facility] [address] [place] [address] Creatinine [Mass/Vol] 0.65 mg/dL Normal 0.60-1.30 [facility] Comment on above: Result Comment: METH OD TRACEABLE TO IDMS STANDARD Performed By: #### C BCA, PINR, BMP #### [facility] ([id number]) [address] [address] [place] [address] eGFR (CKD-EPI) NON-RACE DEPENDENT >90 Normal >59 [facility] Comment on above: Result Comment: Reported eGFR is based on the CKD-EPI 2020 equation that does not use a race coefficient. Performed By: #### C BCA, PINR, BMP #### [facility] ([id number]) [address], [address] [place] [address] Glucose [Mass/Vol] 178 mg/dL High 65-99 [facility] Comment on above: Performed By: #### C WILLI PINR, BMP #### [facility] ([id number]) [address], [address] [place] [address] Potassium [Moles/Vol] 4.4 mmol/L Normal 3.5-5.0 [facility] Comment on above: Performed By: #### C WILLI PINR, BMP #### [facility] ([id number]) [address], [address] [place] [address] Sodium [Moles/Vol] 135 mmol/L Normal 134-146 [facility] Comment on above: Performed By: #### Aracelis MÁRQUEZ PINR, BMP #### [facility] ([id number]) [address], [address] [place] [address] Urea nitrogen [Mass/Vol] 13 mg/dL Normal 5-23 [facility] Comment on above: Performed By: #### Aracelis MÁRQUEZ PINR, BMP #### [facility] ([id number]) [address], [address] [place] [address] CBC AND AUTO DIFFon 06-25-20 24 ABSOLUTE BASOPHIL 0.1 X10E9/L Normal 0.0-0.2 [facility] Comment on above: Performed By: #### C WILLI PINR, BMP #### [facility] ([id number]) [address], [address] [place] [address] ABSOLUTE NEUTROPHIL 8.2 X10E9/L High 1.5-6.6 [facility] Comment on above: Performed By: #### Aracelis MÁRQUEZ PINR, BMP #### [facility] ([id number]) [address], [address] [place] [address] Basophils/100 WBC (Bld) 0.8 % Normal [facility] Comment on above: Performed By: #### C WILLI PINBroderick, BMP #### [facility] ([id number]) [address], [facility] [address] [place] [address] Eosinophils (Bld) [#/Vol] 0.6 10*3/uL High 0.0-0.4 [facility] Comment on above: Performed By: #### C WILLI PINR, BMP #### [facility] ([id number]) [address] [address] [place] [address] Eosinophils/100 WBC (Bld) 4.7 % Normal [facility] Comment on above: Performed By: #### C WILLI PINR, BMP #### [facility] ([id number]) [address], [facility] [address] [place] [address] Erythrocyte distribution width (RBC) [Ratio] 14.3 % Normal 11.5-15.0 [facility] Comment on above: Performed By: #### C WILLI PINR, BMP #### [facility] ([id number]) [address], [facility] [address] [place] [address] Hematocrit (Bld) [Volume fraction] 46.4 % Normal 39-49 [facility] Comment on above: Performed By: #### Aracelis MÁRQUEZ PINR, BMP #### [facility] ([id number]) [address], [facility] [address] [place] [address] Hemoglobin (Bld) [Mass/Vol] 15.9 g/dL Normal 13.0-17.0 [facility] Comment on above: Performed By: #### Aracelis MÁRQUEZ PINR, BMP #### [facility] ([id number]) [address] [address] [place] [address] Lymphocytes (Bld) [#/Vol] 2.8 10*3/uL Normal 1.0-3.5 [facility] Comment on above: Performed By: #### C BCA, PINR, BMP #### [facility] ([id number]) [address], [address] [place] [address] Lymphocytes/100 WBC (Bld) 22.3 % Normal [facility] Comment on above: Performed By: #### C WILLI, PINR, BMP #### [facility] ([id number]) [address], [address] [place] [address] MCH (RBC) [Entitic mass] 27.0 pg Normal 27-34 [facility] Comment on above: Performed By: #### C WILLI, PINR, BMP #### [facility] ([id number]) [address], [address] [place] [address] MCHC (RBC) [Mass/Vol] 34.3 g/dL Normal 32-36 [facility] Comment on above: Performed By: #### C WILLI, PINR, BMP #### [facility] ([id number]) [address], [address] [place] [address] MCV (RBC) [Entitic vol] 79 fL Low 80-100 [facility] Comment on above: Performed By: #### C BCA, PINR, BMP #### [facility] ([id number]) [address], [address] [place] [address] Monocytes (Bld) [#/Vol] 0.9 10*3/uL Normal 0-0.9 [facility] Comment on above: Performed By: #### C BCA, PINR, BMP #### [facility] ([id number]) [address], [address] [place] [address] Monocytes/100 WBC (Bld) 6.9 % Normal [facility] Comment on above: Performed By: #### C BCA, PINR, BMP #### [facility] ([id number]) [address], [address] [place] [address] Neutrophils/100 WBC (Bld) 65.3 % Normal [facility] Comment on above: Performed By: #### SEAN Hsu BCA, BMP #### [facility] ([id number]) [address], [address] [place] [address] Platelet mean volume (Bld) [Entitic vol] 8.8 fL Normal 7-12 [facility] Comment on above: Performed By: #### C SEAN MÁRQUEZ, BMP #### [facility] ([id number]) [address], [address] [place] [address] Platelets (Bld) [#/Vol] 303 10*3/uL Normal 150-450 [facility] Comment on above: Performed By: #### SEAN Hsu BCA, BMP #### [facility] ([id number]) [address], [address] [place] [address] RBC COUNT 5.89 X10E12/L High 4.10-5.70 [facility] Comment on above: Performed By: #### SEAN Hsu BCA, BMP #### [facility] ([id number]) [address], [address] [place] [address] WBC (Bld) [#/Vol] 12.5 10*3/uL High 4.0-11.0 [facility] Comment on above: Performed By: #### Aracelis MÁRQUEZ PINR, BMP #### [facility] ([id number]) [address] [address] [place] [address] PROTIME AND INRon 12-01-2023 INR Coag (PPP) [Relative time] 1.0 {INR} Normal 0.8-1.1 [facility] Comment on above: Performed By: #### Aracelis MÁRQUEZ PINR, BMP #### [facility] ([id number]) [address], [address] [place] [address] PT Coag (PPP) [Time] 11.6 s Normal 9.8-13.2 [facility] Comment on above: Performed By: #### C SEAN MÁRQUEZ BMP #### [facility] ([id number]) [address], [address] [place] [address] Juice 10-17-2023 CNPN Telephone (ENDOLN) DERRELL AVITIA JR ([id number]) 1970 M Date Time Provider Department 10/17/23 KYLEE DALAL ENDOLN During your visit today, we recorded the following information about you: Chelly De La Cruz LPN 10/17/2023 7:36 AM Signed Prioe [place] [facility] Farxiga. Will await the determination. Camilla Montes MA 10/22/2023 10:32 AM Addendum Received the following messgage from [facility]: Called [phone] and initiated verbal prior authorization with rep Abdiaziz. Prior Auth #: [id number]. Awaiting determination Camilla Montes MA 10/22/2023 10:54 AM Signed Called [phone] for Prior Auth update. Answered additional clinical questions. Rep by the name of Abdiaziz states a determination will be available between 24-72 hours. Prior Auth#: [id number] Germain Hubbard MA 10/24/2023 3:34 PM Addendum See Photofy message with patient regarding if patient has tried either of these medications. William Judge APRN.DOMINIC 10/28/2023 7:48 AM Signed Farxiga switched to Jardiance per insurance formulary request. Please let Derrell know that Jardiance is in the same class of medication as Farxiga and has a similar mechanism of action. Prescription was sent to [facility] in [place]. Thank you. William Judge APRN.Camilla Garner MA 10/30/2023 9:30 AM Signed Called patient, no answer. Sent Mychart with below message Farxiga switched to Jardiance per insurance formulary request. Please let Derrell know that Jardiance is in the same class of medication as Farxiga and has a similar mechanism of action. Prescription was sent to [facility] in [place]. Thank you. OG Harvey Josephine, MA 11/06/2023 1:26 PM Addendum Received the following fax. Spoke to Kris, [facility] and states Jardiance is rejected. States received message that glipizide and pioglitazone must be tried first. William Judge APRN.CNP 11/10/2023 11:04 AM Signed Please let patient know that Jardiance was denied and patient's insurance advised that he must try Glipizide first before Jardiance will be covered. I sent a prescription for Glipizide 5 mg once daily with breakfast to his preferred pharmacy. Thank you. William Judge APRN.William Andrew APRN.CNP 11/10/2023 11:04 AM Signed Addended by: WILLIAM JUDGE on: 11/10/2023 11:04 AM Modules accepted: Germain Valenzuela MA 11/11/2023 10:52 AM Signed Caller verbally verified by name and date of . Patient verbally understood message below. No questions or concerns. Allergies As of Date: 10/17/2023 Noted Allergy Reaction OPIOIDS - MORPHINE ANALOGUES 03/11/2023 11 - Vomiting 8 - GI Upset Date Reviewed: 10/03/2023 Reviewed by: Karen Ho, RN - Fully Assessed Order(s):glipiZIDE (GLUCOTROL) 5 mg tabletTake 1 tablet (5 mg) by mouth daily before breakfast.Disp: 30 tabletRfl: 2 Prescriptions as of 11/11/2023 - glipiZIDE (GLUCOTROL) 5 mg tablet Take 1 tablet (5 mg) by mouth daily before breakfast. - empagliflozin (JARDIANCE) 25 mg tablet Take 1 tablet by mouth daily with breakfast. - pravastatin (PRAVACHOL) 80 mg tablet Take 1 tablet by mouth once daily. - blood sugar diagnostic (FREESTYLE PRECISION ADDISON STRIPS) test strip Use with blood glucose test one time daily - insulin lispro (HUMALOG KWIKPEN) 100 unit/mL Inject 15 units with breakfast and lunch and 20 units with dinner plus sliding scale (Max daily dose of 91 units daily) - amLODIPine (NORVASC) 10 mg tablet Take 10 mg by mouth. - flash glucose sensor (FREESTYLE MARY ANN 2 SENSOR) kit USE DIRECTED EVERY 14 DAYS - lisinopril (ZESTRIL) 20 mg tablet Take 20 mg by mouth once daily. - insulin glargine (LANTUS SOLOSTAR U-100 INSULIN) 100 unit/mL (3 mL) Inject 35 Units subcutaneously twice daily. - flash glucose scanning reader (VANCLSTYLE MARY ANN 2 READER) Check glucose 4 times daily - fluocinonide (LIDEX) 0.05 % ointment Apply to affected areas of rash twice daily x 2 weeks, then once daily x 2 weeks. NOT for face, armpits, or groin - Insulin Syringe-Needle U-100 1 mL 25 x 1 syrg Use 1 syringe once daily to administer peg-interferon dose. - ibuprofen (MOTRIN) 800 mg tablet Facility-Administered Medications as of 11/11/2023 - sodium chloride 0.9 % (flush) 10 mL (BD POSIFLUSH) - perflutren lipid microspheres 1.3 mL in NaCl (PF) 0.9% 10 mL injection (DEFINITY) - sodium chloride 0.9 % (flush) 10 mL (BD POSIFLUSH) - perflutren lipid microspheres 1.3 mL in NaCl (PF) 0.9% 10 mL injection (DEFINITY) - sodium chloride 0.9 % (flush) 10 mL (BD POSIFLUSH) - perflutren lipid microspheres 1.3 mL in NaCl (PF) 0.9% 10 mL injection (DEFINITY) - sodium chloride 0.9 % (flush) 10 mL (BD POSIFLUSH) Meds Comments as of 12/22/2020: pt is on investigational med Problem List As Of Date 10/17/2023 Noted Resolved CML (chronic myeloid leukemia) [C92.10] 04/06/2012 Rash [R21] (more content not included)... Normal [facility] CNPNandini 10-14-2023 CNPN Telephone (HEMAMN) SADIDERRELL Hsu ([id number]) 1970 M Date Time Provider Department 10/14/23 RAHEEM SANTOS HEMAMN During your visit today, we recorded the following information about you: Raheem Santos, Research Coordinator 10/14/2023 11:21 AM Signed IRB# [id number]/[facility]# ARIA [id number]: Study Description A Randomized, Open-label, Phase 2 Trial of Ponatinib in Patients with Resistant Chronic Phase Chronic Myeloid Leukemia to Characterize the Efficacy and Safety of a Range of Doses Derrell Hsu Sadi ESCOBEDO [id number] Survival/Automated Cutting Machine Operator Follow Up Call Group Home Follow Up performed every 12 weeks ? 14 days till 5 years, starting after the last dose of ponatinib or the art conservator/patient decision to discontinue treatment--whichever occurs later. Chart Review for survival performed Raheem Santos, Research Coordinator . Patient was last seen Office visit on 10/01/2023 by William Howell MD, PhD Current treatment is Trial ACTG 1920 -taking INV [id number] associated with Clinical Trial Per sponsor email from this will be the last follow-up call for this trial. Patient knows to call in the interim for any questions or concerns. Raheem Santos, Research Coordinator Allergies As of Date: 10/14/2023 Noted Allergy Reaction OPIOIDS - MORPHINE ANALOGUES 03/11/2023 11 - Vomiting 8 - GI Upset Date Reviewed: 10/03/2023 Reviewed by: Karen Ho, RN - Fully Assessed Reason for Visit: Research [293] Cmt: MIGUEL ANGEL 2914 Survival Follow-up Last Call Prescriptions as of 10/14/2023 - pravastatin (PRAVACHOL) 80 mg tablet Take 1 tablet by mouth once daily. - blood sugar diagnostic (FREESTYLE PRECISION ADDISON STRIPS) test strip Use with blood glucose test one time daily - insulin lispro (HUMALOG KWIKPEN) 100 unit/mL Inject 15 units with breakfast and lunch and 20 units with dinner plus sliding scale (Max daily dose of 91 units daily) - amLODIPine (NORVASC) 10 mg tablet Take 10 mg by mouth. - dapagliflozin propanediol (FARXIGA) 10 mg tablet Take 1 tablet by mouth daily with breakfast. - flash glucose sensor (FREESTYLE MARY ANN 2 SENSOR) kit USE DIRECTED EVERY 14 DAYS - lisinopril (ZESTRIL) 20 mg tablet Take 20 mg by mouth once daily. - insulin glargine (LANTUS SOLOSTAR U-100 INSULIN) 100 unit/mL (3 mL) Inject 35 Units subcutaneously twice daily. - flash glucose scanning reader (FREESTYLE MARY ANN 2 READER) Check glucose 4 times daily - fluocinonide (LIDEX) 0.05 % ointment Apply to affected areas of rash twice daily x 2 weeks, then once daily x 2 weeks. NOT for face, armpits, or groin - Insulin Syringe-Needle U-100 1 mL 25 x 1 syrg Use 1 syringe once daily to administer peg-interferon dose. - ibuprofen (MOTRIN) 800 mg tablet Facility-Administered Medications as of 10/14/2023 - sodium chloride 0.9 % (flush) 10 mL (BD POSIFLUSH) - perflutren lipid microspheres 1.3 mL in NaCl (PF) 0.9% 10 mL injection (DEFINITY) - sodium chloride 0.9 % (flush) 10 mL (BD POSIFLUSH) - perflutren lipid microspheres 1.3 mL in NaCl (PF) 0.9% 10 mL injection (DEFINITY) - sodium chloride 0.9 % (flush) 10 mL (BD POSIFLUSH) - perflutren lipid microspheres 1.3 mL in NaCl (PF) 0.9% 10 mL injection (DEFINITY) - sodium chloride 0.9 % (flush) 10 mL (BD POSIFLUSH) Meds Comments as of 12/22/2020: pt is on investigational med Problem List As Of Date 10/14/2023 Noted Resolved CML (chronic myeloid leukemia) [C92.10] 04/06/2012 Rash [R21] 07/15/2017 Encounter Status:Closed by RAHEEM BRYANT on 10/14/23 Normal [facility] BONE MARROW ANALYSISon 04-26 -2024 CASE REPORT Normal [facility] Comment on above: Order Comment: Rosa gaspar Type: BONE MARROW SPECIMENOrdering Facility: [facility] Address: [address] [place] [address] Result Comment: Bone Marrow Pathology Report Case: [id number] Authorizing Provider: William Howell MD, Collected: 10/03/2023 08:40 AM PhD Ordering Location: [place] [address] Received: 10/03/2023 10:29 AM Pathologist: Gemma Torres MD Specimens: A) - Bone Marrow, Aspirate, Left, Posterior, Iliac Crest B) - Bone Marrow, Biopsy, Left, Posterior, Iliac Crest C) - Bone Marrow, Clot, Left, Posterior, Iliac Crest D) - Blood Performed By: #### B MRT ####[facility] [id number] [address] OF [place] DIAGNOSIS COMMENT The patient has a 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 A recent molecular study for p210 BCR/ABL1 transcripts was positive on peripheral blood. Flow cytometry on this specimen shows no immunophenotypic evidence of lymphoproliferative disorder or abnormal blast population (see flow report). Correlation with clinical findings and pending cytogenetic result is suggested to rule out persistent disease. Normal [facility] Comment on above: Order Comment: Rosa gaspar Type: BONE MARROW SPECIMENOrdering Facility: [facility] Address: [address] [place] [address] Performed By: #### B MRT ####[facility] [id number] [address] [place] FINAL DIAGNOSIS Normal [facility] Comment on above: Order Comment: Rosa gaspar Type: BONE MARROW SPECIMENOrdering Facility: [facility] Address: [address] [place] [address] Result Comment: A-C. Bone marrow, aspirate smear and core biopsy, with clot section: - Normocellular marrow (50-60%) with trilineage hematopoiesis. - Iron stores present. - See comment. D. Peripheral blood smear: - Eosinophilia and microcytosis without anemia. HJR 10/06/2023 Performed By: #### B MRT ####[facility] [id number] [address] [place] FINAL PERFORMING LAB Normal [facility] Comment on above: Order Comment: Speci men Type: BONE MARROW SPECIMENOrdering Facility: [facility] Address: [address] [place] [address] Result Comment: Diag nostic interpretation performed at [facility], [address] [place] [address] CLIA# [id number] City Route Driver: Tico Jeter M.D. Performed By: #### B MRT ####[facility] [id number] [address] [place] Performed By: #### F CLLRFLX, FCLLP ####[facility] [id number] [address] [place] GROSS DESCRIPTION Normal [facility] Comment on above: Order Comment: Speci men Type: BONE MARROW SPECIMENOrdering Facility: [facility] Address: [address] [place] [address] Result Comment: A. B one Marrow, Aspirate, Left, Posterior, Iliac Crest Received are air-dried bone marrow aspirate smears. Submitted for light microscopy. B. Bone Marrow, Biopsy, Left, Posterior, Iliac Crest Received in formalin is one segment of cylindrical tissue measuring 1.9 x 0.3 x 0.3 cm, dueñas-brown and of a firm consistency. Totally submitted in one cassette after decalcification. C. Bone Marrow, Clot, Left, Posterior, Iliac Crest Received in formalin is one segment of red, hemorrhagic material measuring 1.8 x 1.5 x 0.6 cm. Totally submitted in one cassette. D. Blood Received is a peripheral blood smear. Submitted for light microscopy. Gross examination performed at [facility], [address] [place] [address] FFS 10/03/2023 8:14 PM Performed By: #### B MRT ####[facility] [id number] [place] [address] [place] MICROSCOPIC DESCRIPTION Normal [facility] Comment on above: Order Comment: Speci men Type: BONE MARROW SPECIMENOrdering Facility: [facility] Address: [facility] [place] [address] Result Comment: JOSSY PHERAL BLOOD: CBC (10/01/2023 8:49 AM) Diff: Auto WBC 10.65 k/uL Neutrophils % 64 Hemoglobin 15.5 g/dL Lymphocytes % 22.3 MCV 79.8 fL Monocytes % 6.6 RDW-CV 14.3 % Eosinophils % 5.9 Platelet Count 271 k/uL Basophils % 0.8 Immature Granulocytes % 0.4 Morphology/Interpretation: Microcytosis without anemia. Eosinophilia without leukocytosis. BONE MARROW ASPIRATE: Result Normal Range 0 % Blasts 0-2 0 % Promyelocytes 1-5 53 % Myelos/Metas/Bands/Segs 32-72 6 % Eosinophils 1-6 0 % Basophils 0-1 3 % Monocytes 0-4 23 % Erythroid precursors 13-37 14 % Lymphocytes 7-23 1 % Plasma cells 0-2 Myeloid/Erythro (1.5-4): 2.7 Cells counted: 400. Iron stain result: No particles, no ring sideroblasts. Specimen Quality: Cellular aspirate with rare particles. Megakaryocytes: Present with a predominantly unremarkable morphology. Erythropoiesis: Progressive maturation. Granulopoiesis: Progressive maturation. BONE MARROW BIOPSY: Adequacy: Adequate. Cellularity: Normal for age (50-60%) ME ratio: Normal. Hematopoiesis: Trilineage hematopoiesis. Megakaryocytes: Present. Megakaryocyte morphology: Predominantly unremarkable. Few small hypolobated forms present Lymphoid infiltrate: Not present. Bone trabeculae: Normal. Other: No lymphoid aggregates, granulomas or metastatic tumors present. CLOT SECTION: Marrow particles: Many. Morphology: Similar to biopsy ANCILLARY TESTS: Flow cytometry: Performed. Cytogenetics: Pending. FISH: N/A Molecular: Buffy coat stored. Performed By: #### B MRT ####[facility] [id number] [place] [address] [place] BONE MARROW CHROMOSOME ANALo n 10-03-2023 CHROMOSOME BM Normal [facility] Comment on above: Order Comment: Speci men Type: BLOOD SPECIMEN [facility] Address: [address] [place], [place] [address] [address] Result Comment: Leena pérez Accession Number: [id number] Doctor: William Howell Pathologist: [facility] No: [id number] Clinical diagnosis: Chronic myeloid leukemia Specimen Type: Bone marrow Received Date: 10/03/2023 Number of cells counted: 20 Number of cells analyzed: 20 Number of cells karyotyped: 20 Banding resolution: 400 Banding method: G-banding DIAGNOSIS: 46,XY[20] INTERPRETATION: Normal, male karyotype COMMENT: Ten metaphase cells were analyzed from the culture supplemented with GM-CSF and ten metaphase cells were analyzed from the 24 hour unstimulated culture. Twenty cells analyzed showed a 46,XY karyotype, or had random chromosomal loss, attributed to culture artifact. There was no significant numerical chromosome abnormality and no structural change detected within the limits of resolution. There was no cytogenetic evidence of the Jerauld chromosome observed in previous studies in December 2014, March 2016, April 2017, April 2019, and April 2020. The analyses in April 2018, August 2019, September and December 2020, June, November and May 2022, October and April 2023 all demonstrated a 46,XY karyotype. Clinical and pathologic correlation is recommended. As reviewed by Radha Lozano, PhD, FACMG Performed by [facility] [place] Division of Molecular Pathology Cytogenetics Lab, [place] [address] [place] [address] Toll free: Performed By: #### 5 7021-8 #### [facility] CLIA [id number] [address] [place] [address] [place] BIOPSY BONE MARROW (HEMO) on 10-03-2023 CT BIOPSY BONE MARROW (HEMO) * * *Final Report* * * DATE OF EXAM: Oct 03 2023 8:50AM [facility] [place] CT BIOPSY BONE MARROW (HEMO) / PROCEDURE REASON: C92.10-CML (chronic myeloid leukemia) ([facility]) * * * * Physician Interpretation * * * * CT GUIDED LEFT POSTERIOR ILIAC CREST BONE MARROW ASPIRATION AND BIOPSY INDICATION: The patient is a 53 year old male with a history of chronic myeloid leukemia who presented for bone marrow aspiration and biopsy. CONSENT: The risks, benefits, treatment options, potential complications and personnel to be involved were discussed (including the instruments to be used and anesthesia administration) with the patient. All questions were answered and consent was obtained. The patient indicated willingness to proceed. GENERAL: a) Medication Reconciliation: The patient's medications and allergies were reviewed in the electronic medical record and reconciled to the proposed procedure/treatment. Pre-procedure Sign-in: Safety Checklist Performed Yes b) Positioning: The patient was placed supine on the table. c) The lower back was then sterilely prepped and draped. d) Time Out: A time out was performed immediately prior to procedure start with the nursing, anesthesia and interventional team, correctly identifying the patient name, date of , procedure, anatomy (including marking of site and side), patient position, procedure consent form, relevant diagnostic and radiology test results, antibiotic administration, safety precautions, and procedure-specific equipment needs. Time Out Time: 08:15 ANESTHESIA: a) Local anesthesia: 10 mL 2% Lidocaine b) Anesthesia Type: Induction of moderate procedural sedation. c) Anesthesia Start Time: 08:28 d) Anesthesia Medications: 150 mcg Fentanyl; 3 mg Midazolam; e) Intra-service time (starts with administration of agent, ends when continuous [id number]-[id number] time ends): 16 minutes. f) Patient monitoring: I personally supervised and directed an independent trained observer who assisted in monitoring the patient?s level of consciousness and physiological status throughout the procedure. PROCEDURE: a) Procedure Details: The lower back was marked, prepped, and draped. After administration of IV and local anesthesia, an 11-gauge On Control needle was advanced into the marrow space of the left posterior iliac crest and 14 mL of liquid aspirate was collected. Next, the needle was advanced to collect a 1.6 cm solid core biopsy sample. All needles were removed. Images were stored. b) Devices used: Biopsy Needle: 11 Gauge On Control c) Estimated Blood Loss: 0 mL d) Number and Type of Removed Specimens: 40 mm liquid aspirate, 1.6 cm solid core biopsy sample CONTRAST CT imaging was performed without contrast. RADIATION DOSE a) Image guidance: CT guidance b) Radiation: CT Radiation dose: Integrated Dose-length product (DLP) for this visit = 245 mGy*cm. CT Dose Reduction Employed: mAs-kVp adjusted based on patient size-age POST PROCEDURE: a) Hemostasis: Hemostasis was achieved using light manual compression. b) Sign-out: Communication Performed N/A c) Procedure End Time: 08:44 d) Conclusion: The patient was transferred to the biopsy recovery room in stable condition. COMPLICATIONS: a) Significant Patient Complication: None b) Complications during the procedure: None RESULTS: UNCOMPLICATED CT guided left posterior iliac crest bone marrow aspiration AND biopsy. IMPRESSION: SUCCESSFUL CT GUIDED LEFT POSTERIOR ILIAC CREST BONE MARROW ASPIRATION AND BIOPSY DESCRIBED. Attending Radiologist: Dr. Rafael Maravilla MD Java Lead: Dr. Shaggy Kaur MD The procedure was performed by the assistant reading teacher, and the attending radiologist personally supervised the entire procedure. Key Operator: USEREADYRosa Transcribe Date/Time: Oct 03 2023 3:49P Dictated by : SHAGGY KAUR MD This examination was interpreted and the report reviewed and electronically signed by: RAFAEL MARAVILLA MD on Oct 03 2023 4:10PM EST [id number] Normal [facility] DNA EXTRACTION BONE MARROW ( BUFFY COAT)on 10-03-2023 DNA EXTRACTION BONE MARROW (BUFFY COAT) Normal [facility] Comment on above: Order Comment: Speci men Type: BONE MARROW SPECIMENOrdering Facility: [facility] Address: [address] [place] [address] Result Comment: This specimen was received and successfully processed for future DNA purification should molecular testing be needed. Specimens will be available for 3 years from date of collection. To order testing on this specimen for [facility] patients, please place an [facility] order for DNA and RNA Clinical Testing ([id number]). To order testing for patients outside of the [facility] system, please request DNA and RNA for Clinical Testing, order code [id number]. If additional paperwork is required for testing, please send completed forms via secure email to . Performed By: #### N UCBUF ####[facility] [id number] [place] [address] [place] FLOW CYTOMETRY FOR LEUKEMIA/ LYMPHOMA (FCLL) PERFORMABLEon 10-03-2023 FLOW CYTOMETRY ORDER STATUS See Results in chart under F case ID Normal [facility] Comment on above: Order Comment: Speci men Type: BONE MARROW SPECIMENOrdering Facility: [facility] Address: [address] [place] [address] Performed By: #### F CLLRFLX, FCLLP ####[facility] [id number] [address] FLOW CYTOMETRY FOR LEUKEMIA/ LYMPHOMA (FCLL) REFLEXon 10-03-2023 DIAGNOSIS COMMENT Normal [facility] Comment on above: Order Comment: Speci men Type: BONE MARROW SPECIMENOrdering Facility: [facility] Address: [address] [place] [address] Result Comment: This assay is not designed to detect minimal residual disease, plasma cell neoplasms, or myeloid antigen maturational patterns. This test was developed and its performance characteristics determined by [facility] Path[facility] Medicine [place] ([facility]). It has not been cleared or approved by the FDA. -[facility] is regulated under CLIA as qualified to perform high-complexity testing. This test is used for clinical purposes. It should not be regarded as investigational or for research. Performed By: #### F CLLRFLX, FCLLP ####[facility] [id number] [address] [place] FLOW CYTOMETRY RESULTS Normal [facility] Comment on above: Order Comment: Speci men Type: BONE MARROW SPECIMENOrdering Facility: [facility] Address: [address] [place] [address] Result Comment: Spec imen type: Bone marrow aspirate Viability: 99% Flow Cytometry Bone Marrow Immunophenotyping Marker Normal Cell Type Result (Lymphocytes) CD3 T-cells Normal Pattern CD4 T-cell subset Normal Pattern CD5 T-cells Normal Pattern CD7 T/NK-cells Normal Pattern CD8 T-cell subset Normal Pattern CD13 Myeloid Normal Pattern CD16/56 NK cells Normal Pattern CD19 B-cells Normal Pattern CD34 Blasts Normal Pattern CD45 Costa-leukocyte Normal Pattern kappa/lambda B-cells Polytypic Flow cytometric analysis of the bone marrow aspirate reveals that 9% of total events have the CD45 and light scatter properties of lymphocytes. The lymphocytes are composed of T-cells (65%, CD4:CD8 ratio = 0.94), NK cells (3%), and polytypic B-cells (29%). Granulocytic elements are 79% of events. Blasts are not increased. Performed By: #### F CLLRFLX, ELP ####[facility] [id number] [address] GROSS DESCRIPTION A. Bone Marrow Normal [facility] Comment on above: Order Comment: Speci men Type: BONE MARROW SPECIMENOrdering Facility: [facility] Address: [address] [place] [address] Result Comment: Rece ived 2 mls bone marrow in na hep Performed By: #### F CLLRFLXELP ####[facility] LABIA [id number] [address] INTERPRETATION Normal [facility] Comment on above: Order Comment: Speci men Type: BONE MARROW SPECIMENOrdering Facility: [facility] Address: [address] [place] [address] Result Comment: Ther e is no evidence of involvement by a lymphoproliferative disorder or abnormal blast population. Correlation with the clinical and bone marrow histopathologic findings is suggested. JUAN MANUELR/KELSEY 10/06/2023 Performed By: #### F CLLRFLX, ELP ####[facility] LABIA [id number] [address] OF [facility] HISTORY PHYSICALon HISTORY PHYSICAL HNO ID: [id number] Author: SHAGGY KAUR MD, PhD Service: Radiology Author Type: Physician Type: H&P Filed: 10/03/2023 07:29 Note Text: RADIOLOGY PROCEDURAL SEDATION HISTORY AND PHYSICAL EXAM SERVICE DATE: 10/03/2023 SERVICE TIME: 7:19 AM Subjective HPI: This is a 53 year old male with a history of CML who presents for BM bx. PROCEDURE SCHEDULED: Procedure(s) with comments: DIAGNOSTIC BONE MARROW BIOPSY(IES) (N/A) - BONE MARROW BIOPSY RADIOLOGY ORDER PLACED: PAST ANESTHESIA HISTORY: No history of adverse event PAST MEDICAL HISTORY Diagnosis Date CML (chronic myelocytic leukemia) (HCC) Hypertension PAST SURGICAL HISTORY Procedure Laterality Date ANES OPEN/SURG ARTHROSCOPIC PROC KNEE JOINT NOS right knee BACK SURGERY HX L4 and L5 infusion CHOLECYSTECTOMY TONSILLECTOMY HX Prior to Admission medications as of 10/03/23 0646 Medication Sig Last Dose Taking pravastatin (PRAVACHOL) 80 mg tablet Take 1 tablet by mouth once daily. 10/02/2023 at 0900 Yes insulin lispro (HUMALOG KWIKPEN) 100 unit/mL Inject 15 units with breakfast and lunch and 20 units with dinner plus sliding scale (Max daily dose of 91 units daily) 10/02/2023 at 1900 Yes amLODIPine (NORVASC) 10 mg tablet Take 10 mg by mouth. 10/03/2023 at 0330 Yes dapagliflozin propanediol (FARXIGA) 10 mg tablet Take 1 tablet by mouth daily with breakfast. 10/03/2023 at 0330 Yes lisinopril (ZESTRIL) 20 mg tablet Take 20 mg by mouth once daily. 10/03/2023 at 0330 Yes insulin glargine (LANTUS SOLOSTAR U-100 INSULIN) 100 unit/mL (3 mL) Inject 35 Units subcutaneously twice daily. 10/02/2023 at 1900 Yes fluocinonide (LIDEX) 0.05 % ointment Apply to affected areas of rash twice daily x 2 weeks, then once daily x 2 weeks. NOT for face, armpits, or groin Yes ibuprofen (MOTRIN) 800 mg tablet Yes blood sugar diagnostic (FREESTYLE PRECISION ADDISON STRIPS) test strip Use with blood glucose test one time daily flash glucose sensor (FREESTYLE MARY ANN 2 SENSOR) kit USE DIRECTED EVERY 14 DAYS flash glucose scanning reader (FREESTYLE MARY ANN 2 READER) Check glucose 4 times daily Insulin Syringe-Needle U-100 1 mL 25 x 1 syrg Use 1 syringe once daily to administer peg-interferon dose. ALLERGIES Allergen Reactions Opioids - Morphine * Vomiting, GI Upset Objective PHYSICAL EXAM: The remainder of the physical exam is noncontributory. AIRWAY: Mallampati II LUNGS: Lungs clear to auscultation, Good diaphragmatic excursion CARDIAC: Normal S1 and S2; no rubs, murmurs, or gallops Assessment/Plan ASA Class: II Provisional Diagnosis/Treatment Plan: CT guided posterior iliac bone marrow aspiration and biopsy with moderate sedation SIGNATURE: Shaggy Kaur MD PATIENT NAME: Derrell Avitia JR DATE: October 03, 2023 TIME: 7:29 AM Normal [facility] NURSING PROGon 10-03-2023 NURSING PROG HNO ID: [id number] Author: EMILY SOLIS RN Service: ? Author Type: Registered Nurse Type: Nursing Progress Note Filed: 10/06/2023 08:36 Note Text: Attempted post procedure phone call. Left VM for patient to return call to [phone] with any questions/concerns. Normal [facility] PT EDon 10-03-2023 PT ED HNO ID: [id number] Author: SONYA MORSE RN Service: ? Author Type: Registered Nurse Type: Patient Education Filed: 10/03/2023 08:08 Note Text: AMBULATORY PATIENT EDUCATION TOPIC: Survival Skills: SURVIVAL SKILLS: Complication Prevention Pain Management Safety Precautions READINESS TO LEARN COGNITIVE ABILITY: Alert and oriented MOTIVATION TO LEARN: Eager Interested FAMILY SUPPORT: None - Unavailable/disinterest ed INSTRUCTION PROVIDED TO: Patient PATIENT LEARNS BEST BY: Individual Instruction Verbal Instruction FACTORS AFFECTING LEARNING: None PHYSICAL LIMITATIONS AFFECTING LEARNING: None LEARNING RESPONSE DIAGNOSIS: BMB METHOD OF INSTRUCTION: Individual instruction Verbal instruction PATIENT / FAMILY RESPONSE: Information received as demonstrated by interest and questions FOLLOW-UP PLAN: Complete - No need for follow-up SUPPLEMENTAL MATERIAL: None REFERRAL (RECOMMENDATION): None Electronically Signed By: Sonya Morse RN In Department: HOSP MAIN FB36 Normal [facility] Amylase SerPl-cCncon 024 Amylase [Catalytic activity/Vol] 52 U/L Normal 30-104 [facility] Comment on above: Order Comment: Speci men Type: BLOOD SPECIMENOrdering Facility: [facility] Address: [address] [place] [address] Performed By: #### 1 5152-2, 3040-3, 1798-8, 84111-8, 2777-1 ####[facility] [id number] [place] [address] [place] BCR/ABL1 P210 %IS PANELon BCR/ABL1 P210 %IS 0.2311 Normal [facility] Comment on above: Order Comment: Speci men Type: BLOOD SPECIMENOrdering Facility: [facility] Address: [address] [place] [address] Performed By: #### P 210P ####[facility] LIM[facility]CL[facility] [id number] [place] [address] [place]#### 210ISBP ####[facility] LAB[facility] [id number] [place] [address] [place] BCR/ABL1 P210 MR 2.64 Normal [facility] Comment on above: Order Comment: Speci men Type: BLOOD SPECIMENOrdering Facility: [facility] Address: [address] [place] [address] Performed By: #### P 210P ####[facility] LIM[facility] [id number] [place] [address] [place]#### 210ISBP ####[facility] [id number] [place] [address] [place] BCR/ABL1 P210 QUANTITATIVE P CR BLOOD 10-01-2023 BCR/ABL1 P210 INTERPRETATION Normal [facility] Comment on above: Order Comment: Speci men Type: BLOOD SPECIMENOrdering Facility: [facility] Address: [address] [place] [address] Result Comment: BCR/ ABL1 p210 Quantitative PCR Laboratory Accession Number: [id number] Result: DETECTED MR: 2.64 %IS: 0.2311 Interpretation: p210 BCR/ABL1 transcripts were detected. Quantitative results are expressed on the International Scale (IS) and a log molecular response (MR) is calculated. On this scale, a value of less than or equal to 0.1% corresponds to a major molecular response (MMR or MR3.0). Methodology: The [employer] QuantideX BCR/ABL IS assay is an FDA-cleared in vitro diagnostic test for the quantitation of BCR/ABL1 and ABL1 transcripts in total RNA from whole blood of diagnosed t(9;22) positive chronic myeloid leukemia patients expressing e13a2 and/or e14a2 fusion transcripts. This test does not detect p190 (e1a2) or other rare BCR/ABL1 transcripts. This assay has a limit of quantification and limit of detection of 0.002% IS or MR4.7. References: 1) Janet et al, Blood 2006;108:28-37; Janes et al, Leukemia 2015;29:999-1003 As reviewed by Radha Lozano, PhD, [facility] Performed By: #### P 210P ####[facility] LIM[facility] [id number] [place] [address] [place]#### 210ISBP ####[facility] LABCL[facility] [id number] [place] [address] [place] Bilirub Conj SerPl-mCncon Bilirubin.conjugated [Mass/Vol] mg/dL Normal <0.2 [facility] Comment on above: Order Comment: Speci men Type: BLOOD SPECIMENOrdering Facility: [facility] Address: [address] [place] [address] Performed By: #### 1 5152-2, 3040-3, 1798-8, 46982-1, 2777-1 ####[facility] [id number] [address] [place] CBC W Auto Differential pane l (Bld)on 10-01-2023 Basophils (Bld) [#/Vol] 0.09 10*3/uL Normal <0.11 [facility] Comment on above: Order Comment: Speci men Type: BLOOD SPECIMEN [facility] Address: [address] [place] [address] Performed By: #### 5 7021-8 #### [facility] [id number] [address] [place] [address] [place] Basophils/100 WBC (Bld) 0.8 % Normal [facility] Comment on above: Order Comment: Speci men Type: BLOOD SPECIMEN [facility] Address: [address] [place] [address] Performed By: #### 5 7021-8 #### [facility] [id number] [address] [place] [address] [place] Differential cell count method Nom (Bld) Auto Normal [facility] Comment on above: Order Comment: Speci men Type: BLOOD SPECIMEN [facility] Address: [address] [place] [address] Performed By: #### 5 7021-8 #### [facility] [id number] [address] [place] [address] [place] Eosinophils (Bld) [#/Vol] 0.63 10*3/uL High <0.46 [facility] Comment on above: Order Comment: Speci men Type: BLOOD SPECIMEN [facility] Address: [address] [place] [address] Performed By: #### 5 7021-8 #### [facility] [id number] [address] [place] [address] [place] Eosinophils/100 WBC (Bld) 5.9 % Normal [facility] Comment on above: Order Comment: Speci men Type: BLOOD SPECIMEN [facility] Address: [address] [place] [address] Performed By: #### 5 7021-8 #### [facility] [id number] [address] [place] [address] [place] Erythrocyte distribution width (RBC) [Ratio] 14.3 % Normal 11.5-15.0 [facility] Comment on above: Order Comment: Speci men Type: BLOOD SPECIMEN [facility] Address: [address] [place] [address] Performed By: #### 5 7021-8 #### [facility] [id number] [address] [place] [address] [place] Hematocrit (Bld) [Volume fraction] 47.0 % Normal 39.0-51.0 [facility] Comment on above: Order Comment: Speci men Type: BLOOD SPECIMEN [facility] Address: [address] [place] [address] Performed By: #### 5 7021-8 #### [facility] [id number] [address] [place] [address] [place] Hemoglobin (Bld) [Mass/Vol] 15.5 g/dL Normal 13.0-17.0 [facility] Comment on above: Order Comment: Speci men Type: BLOOD SPECIMEN [facility] Address: [address] [place] [address] Performed By: #### 5 7021-8 #### [facility] [id number] [address] [place] [address] [place] Immature granulocytes (Bld) [#/Vol] 0.04 10*3/uL Normal <0.10 [facility] Comment on above: Order Comment: Speci men Type: BLOOD SPECIMEN [facility] Address: [address] [place] [address] Performed By: #### 5 7021-8 #### [facility] [id number] [address] [place] [address] [place] Immature granulocytes/100 WBC (Bld) 0.4 % Normal [facility] Comment on above: Order Comment: Speci men Type: BLOOD SPECIMEN [facility] Address: [address] [place] [address] Performed By: #### 5 7021-8 #### [facility] [id number] [address] [place] [address] [place] Lymphocytes (Bld) [#/Vol] 2.38 10*3/uL Normal 1.00-4.00 [facility] Comment on above: Order Comment: Speci men Type: BLOOD SPECIMEN [facility] Address: [address] [place] [address] Performed By: #### 5 7021-8 #### [facility] [id number] [address] [place] [address] [place] Lymphocytes/100 WBC (Bld) 22.3 % Normal [facility] Comment on above: Order Comment: Speci men Type: BLOOD SPECIMEN [facility] Address: [address] [place] [address] Performed By: #### 5 7021-8 #### [facility] [id number] [address] [place] [address] [place] MCH (RBC) [Entitic mass] 26.3 pg Normal 26.0-34.0 [facility] Comment on above: Order Comment: Speci men Type: BLOOD SPECIMEN [facility] Address: [address] [place] [address] Performed By: #### 5 7021-8 #### [facility] [id number] [address] [place] [address] [place] MCHC (RBC) [Mass/Vol] 33.0 g/dL Normal 30.5-36.0 [facility] Comment on above: Order Comment: Speci men Type: BLOOD SPECIMEN [facility] Address: [address] [place] [address] Performed By: #### 5 7021-8 #### [facility] [id number] [address] [place] [address] [place] MCV (RBC) [Entitic vol] 79.8 fL Low 80.0-100.0 [facility] Comment on above: Order Comment: Speci men Type: BLOOD SPECIMEN [facility] Address: [address] [place] [address] Performed By: #### 5 7021-8 #### [facility] [id number] [address] [place] [address] [place] Monocytes (Bld) [#/Vol] 0.70 10*3/uL Normal <0.87 [facility] Comment on above: Order Comment: Speci men Type: BLOOD SPECIMEN [facility] Address: [address] [place] [address] Performed By: #### 5 7021-8 #### [facility] [id number] [address] [place] [address] [place] Monocytes/100 WBC (Bld) 6.6 % Normal [facility] Comment on above: Order Comment: Speci men Type: BLOOD SPECIMEN [facility] Address: [address] [place] [address] Performed By: #### 5 7021-8 #### [facility] [id number] [address] [place] [address] [place] Neutrophils (Bld) [#/Vol] 6.81 10*3/uL Normal 1.45-7.50 [facility] Comment on above: Order Comment: Speci men Type: BLOOD SPECIMEN [facility] Address: [address] [place] [address] Performed By: #### 5 7021-8 #### [facility] [id number] [address] [place] [address] [place] Neutrophils/100 WBC (Bld) 64.0 % Normal [facility] Comment on above: Order Comment: Speci men Type: BLOOD SPECIMEN [facility] Address: [address] [place] [address] Performed By: #### 5 7021-8 #### [facility] [id number] [address] [place] [address] [place] Nucleated RBC (Bld) [#/Vol] 10*3/uL Normal <0.01 [facility] Comment on above: Order Comment: Speci men Type: BLOOD SPECIMEN [facility] Address: [address] [place] [address] Performed By: #### 5 7021-8 #### [facility] [place] [id number] [address] [place] [address] [place] Nucleated RBC/100 WBC (Bld) [Ratio] 0.0 /100 WBC Normal [facility] Comment on above: Order Comment: Speci men Type: BLOOD SPECIMEN [facility] Address: [address] [place] [address] Performed By: #### 5 7021-8 #### [facility] [id number] [address] [place] [address] [place] Platelet mean volume (Bld) [Entitic vol] 9.9 fL Normal 9.0-12.7 [facility] Comment on above: Order Comment: Speci men Type: BLOOD SPECIMEN [facility] Address: [address] [place] [address] Performed By: #### 5 7021-8 #### [facility] [id number] [address] [place] [address] [place] Platelets (Bld) [#/Vol] 271 10*3/uL Normal 150-400 [facility] Comment on above: Order Comment: Speci men Type: BLOOD SPECIMEN [facility] Address: [address] [place] [address] Performed By: #### 5 7021-8 #### [facility] [id number] [address] [place] [address] [place] RBC (Bld) [#/Vol] 5.89 10*6/uL Normal 4.20-6.00 [facility] Comment on above: Order Comment: Speci men Type: BLOOD SPECIMEN [facility] Address: [address] [place] [address] Performed By: #### 5 7021-8 #### [facility] [id number] [address] [place] [address] [place] WBC (Bld) [#/Vol] 10.65 10*3/uL Normal 3.70-11.00 [facility] Comment on above: Order Comment: Speci men Type: BLOOD SPECIMEN [facility] Address: [address] [place] [address] Performed By: #### 5 7021-8 #### [facility] [id number] [address] [place] [address] [place] CK SerPl-cCncon 10-01-2023 CK [Catalytic activity/Vol] 64 U/L Normal 51-298 [facility] Comment on above: Order Comment: Speci men Type: BLOOD SPECIMENOrdering Facility: [facility] Address: [address] [place] [address] Performed By: #### H STNT, 2157-6 ####[facility] [id number] [place] [address] [place] CNNURSEon 10-01-2023 CNNURSE Nurse Visit (REBEL DE JESUS R) DERRELL AVITIA JR ([id number]) 1970 M Date Time Provider Department 10/01/23 9:30 AM EMMA TUTTLE During your visit today, we recorded the following information about you: Emma Tuttle RN 10/01/2023 4:37 PM Signed ACT 1920 20-863 A phase 1b study of the pharmacokinetics, safety and efficacy of orally administered [id number] in subjects with refractory chronic myeloid leukemia [...] report. Patient reported that he saw a package sealer and is being treated for right heal [...] [1] BSA 0 BMI 0 Temp 36 ?C (96.8 ?F) Pulse 59 ! [2] Resp 18 BP 143/70 !: Data is abnormal [1] shoes on [2] provider notified PAST MEDICAL HISTORY Diagnosis Date Status CML (chronic myelocytic leukemia) ([facility]) 12/2011 Active chronic phase not controlled Hypertension [...] L4 and L5 infusion Prior to 03/2012 [place] ANESTH,KNEE JOINT; NOS right knee Prior to [...] 03/2016 Bosutinib 03/2016 - 05/02/2017 [facility] 2915 15-875 trial of Ponatinib 05/21/2017 - [...] 2x/day to affected areas. 05/29/2020 For rash (more content not included)... Normal [facility] CNOVSPon 10-01-2023 CNOVSP Visit (SP) Office ([facility]) DERRELL AVITIA JR ([id number]) 1970 M Date Time Provider Department 10/01/23 9:30 AM WILLIAM HOWELL [facility] During your visit today, we recorded the following information about you: Temperature Pulse Respiration Blood pressure 96.8 degrees 59/minute 18/minute 143/70 Weight 120.2 kg Ludy Mead [facility] 10/01/2023 9:19 AM Signed Additional intake questions: Has the patient had fever, nausea, vomiting, diarrhea, constipation, fatigue for > 1 week? Yes, fatigue Does the patient have a decreased appetite? No Does patient want to see a Concrete Rubber? No (yes to any of above refer patient to schedulers for dietitian appointment) ) Does patient have any new or increased numbness or tingling of extremities? No Is patient interested in fertility information? No Does patient need any prescription refills? No Does patient have an advanced directive in place? 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 Metaphase cytogenetics showed presence of t(9;22) in all 20 metaphases. (more content not included)... Normal [facility] Cholest SerPl-mCncon 09-30- 024 Cholesterol [Mass/Vol] 183 mg/dL Normal <200 [facility] Comment on above: Order Comment: Speci men Type: BLOOD SPECIMEN [facility]ing Facility[facility] Address: [address] [place] [address] Result Comment: <200 mg/dL, Desirable 200-239 mg/dL, Borderline high >239 mg/dL, High Reference: 1. National Cholesterol Education Program ATP III Guideline At-A-Glance Quick Desk Reference: National Heart, Lung, and Blood English. National Institutes of Health. 2001: NIH Publication No. 01-3305. Performed By: #### 5 7021-8 #### [facility] [id number] [address] [place] [address] [place] Comprehensive metabolic 2000 panelon 10-01-2023 Albumin [Mass/Vol] 4.2 g/dL Normal 3.9-4.[address] [facility] Comment on above: Order Comment: Speci men Type: BLOOD SPECIMENOrdering Facility: [facility] Address: [address] [place] [address] Performed By: #### 2 4323-8, 2571-8, 3084-1 ####[facility] [id number] [place] [address] [place] ALP [Catalytic activity/Vol] 188 U/L High 38-113 [facility] Comment on above: Order Comment: Speci men Type: BLOOD SPECIMENOrdering Facility: [facility] Address: [address] [place] [address] Performed By: #### 2 4323-8, 2571-8, 3084-1 ####[facility] [id number] [place] [address] [place] ALT [Catalytic activity/Vol] 34 U/L Normal 10-54 [facility] Comment on above: Order Comment: Speci men Type: BLOOD SPECIMENOrdering Facility: [facility] Address: [address] [place] [address] Performed By: #### 2 4323-8, 2571-8, 3084-1 ####[facility] [id number] [place] [address] [place] Anion gap [Moles/Vol] 9 mmol/L Normal 9-18 [facility] Comment on above: Order Comment: Speci men Type: BLOOD SPECIMENOrdering Facility: [facility] Address: [address] [place] [address] Performed By: #### 2 4323-8, 2570-8, 3083-1 ####[facility] [id number] [place] [address] [place] AST [Catalytic activity/Vol] 31 U/L Normal 14-40 [facility] Comment on above: Order Comment: Speci men Type: BLOOD SPECIMENOrdering Facility: [facility] Address: [address] [place] [address] Performed By: #### 2 4323-8, 8, 3083-06 ####[facility] [id number] [place] [address] [place] Bilirubin [Mass/Vol] 0.4 mg/dL Normal 0.2-1.3 [facility] Comment on above: Order Comment: Speci men Type: BLOOD SPECIMENOrdering Facility: [facility] Address: [address] [place] [address] Performed By: #### 2 4323-8, 8, 3083-06 ####[facility] [id number] [place] [address] [place] Calcium [Mass/Vol] 9.8 mg/dL Normal 8.5-10.[address] [facility] Comment on above: Order Comment: Speci men Type: BLOOD SPECIMENOrdering Facility: [facility] Address: [address] [place] [address] Performed By: #### 2 4323-8, 2570-8, 3083-06 ####[facility] [id number] [place] [address] [place] Chloride [Moles/Vol] 101 mmol/L Normal 97-105 [facility] Comment on above: Order Comment: Speci men Type: BLOOD SPECIMENOrdering Facility: [facility] Address: [address] [place] [address] Performed By: #### 2 4323-8, 2578, 1 ####[facility] [id number] [place] [address] [place] CO2 [Moles/Vol] 24 mmol/L Normal 22-30 [facility] Comment on above: Order Comment: Speci men Type: BLOOD SPECIMENOrdering Facility: [facility] Address: [address] [place] [address] Performed By: #### 2 4323-8, 2578, 3083-06 ####[facility] [id number] [place] [address] [place] Creatinine [Mass/Vol] 0.68 mg/dL Low 0.73-1.22 [facility] Comment on above: Order Comment: Speci men Type: BLOOD SPECIMENOrdering Facility: [facility] Address: [address] [place] [address] Performed By: #### 2 4323-8, 8, 3083-06 ####[facility] [id number] [place] [address] [place] Creatinine and Glomerular filtration rate.predicted panel (S/P/Bld) 110 mL/min/1.73m??? Normal >=60 [facility] Comment on above: Order Comment: Speci men Type: BLOOD SPECIMENOrdering Facility: [facility] Address: [address] [place] [address] Result Comment: Najma mated Glomerular Filtration Rate [...] GFR. Performed By: #### 2 4323-8, 2571-8, 4-1 ####[facility] [id number] [place] [address] [place] Glucose [Mass/Vol] 131 mg/dL High 74-[address] [facility] Comment on above: Order Comment: Speci men Type: BLOOD SPECIMENOrdering Facility: [facility] Address: [address] [place] [address] Result Comment: The [place] Diabetes Association (ADA) provides guidance for cutoff values for fasting glucose and random glucose. The ADA defines fasting as no caloric intake for at least 8 hours. Fasting plasma glucose results between 100 to 125 mg/dL indicate increased risk for diabetes (prediabetes). Fasting plasma glucose results greater than or equal to 126 mg/dL meet the criteria for diagnosis of diabetes. In the absence of unequivocal hyperglycemia, results should be confirmed by repeat testing. In a patient with classic symptoms of hyperglycemia or hyperglycemic crisis, random plasma glucose results greater than or equal to 200 mg/dL meet the criteria for diagnosis of diabetes. Reference: Standards of Medical Care in Diabetes 2016, [place] Diabetes Association. Diabetes Care. 2016.39(Suppl 1). Performed By: #### 2 4323-8, 2571-8, 3084-1 ####[facility] [id number] [place] [address] [place] Potassium [Moles/Vol] 4.7 mmol/L Normal 3.7-5.1 [facility] Comment on above: Order Comment: Speci men Type: BLOOD SPECIMENOrdering Facility: [facility] Address: [address] [place] [address] Performed By: #### 2 4323-8, 2571-8, 3084-1 ####[facility] [id number] [place] [address] [place] Protein [Mass/Vol] 8.6 g/dL High 6.3-8.[address] [facility] Comment on above: Order Comment: Speci men Type: BLOOD SPECIMENOrdering Facility: [facility] Address: [address] [place], [place] [address] Performed By: #### 2 4323-8, 2571-8, 3084-1 ####[facility] [id number] [place] [address] [place] Sodium [Moles/Vol] 134 mmol/L Low 136-[address] [facility] Comment on above: Order Comment: Speci men Type: BLOOD SPECIMENOrdering Facility: [facility] Address: [address] [place] [address] Performed By: #### 2 4323-8, 2571-8, 3084-1 ####[facility] [id number] [place] [address] [place] Urea nitrogen [Mass/Vol] 11 mg/dL Normal 9-24 [facility] Comment on above: Order Comment: Speci men Type: BLOOD SPECIMENOrdering Facility: [facility] Address: [address] [place] [address] Performed By: #### 2 4323-8, 2571-8, 3084-1 ####[facility] [id number] [place] [address] [place] [id number] 10-01-2023 ECG01 Ventricular Rate : 6 0 BPM Atrial Rate : 60 BPM P-R Interval : 152 ms QRS Duration : 92 ms Q-T Interval : 418 ms QTC Calculation(Bazett) : 418 ms Calculated P Lincoln : 28 degrees Calculated R Lincoln : 35 degrees Calculated T Lincoln : 16 degrees NORMAL SINUS RHYTHM NORMAL ECG Confirmed by JEREMIAS PAL MD () on 10/10/2023 1:01:07 PM NAME : DERRELL AVITIA PID : [id number] : 1970 Gender : Male Race : ORD : Procedure Date : Oct 01 2023 10:11:27 Edit Date : Oct 10 2023 13:09:55 Diagnosis: NORMAL SINUS RHYTHM NORMAL ECG Confirmed by JEREMIAS PAL MD () on 10/10/2023 1:01:07 PM Test Reason : Location : 117 : CA2RE Overread By : JEREMIAS PAL MD Edited By : JEREMIAS PAL MD Referred By : , Acquired by : Angeline lane [facility] ECG01 Ventricular Rate : 6 1 BPM Atrial Rate : 61 BPM P-R Interval : 150 ms QRS Duration : 92 ms Q-T Interval : 414 ms QTC Calculation(Bazett) : 416 ms Calculated P Lincoln : 26 degrees Calculated R Lincoln : 37 degrees Calculated T Lincoln : 20 degrees NORMAL SINUS RHYTHM NORMAL ECG Confirmed by JEREMIAS PAL MD () on 10/10/2023 1:01:06 PM NAME : DERRELL AVITIA PID : [id number] : 1970 Gender : Male Race : ORD : Procedure Date : Oct 01 2023 10:10:03 Edit Date : Oct 10 2023 13:09:52 Diagnosis: NORMAL SINUS RHYTHM NORMAL ECG Confirmed by JEREMIAS PAL MD () on 10/10/2023 1:01:06 PM Test Reason : Location : 117 : CA2RE Overread By : JEREMIAS PAL MD Edited By : JEREMIAS PAL MD Referred By : , Acquired by : Angeline lane [facility] ECG01 Ventricular Rate : 6 1 BPM Atrial Rate : 61 BPM P-R Interval : 156 ms QRS Duration : 88 ms Q-T Interval : 408 ms QTC Calculation(Bazett) : 410 ms Calculated P Lincoln : 35 degrees Calculated R Lincoln : 44 degrees Calculated T Lincoln : 22 degrees NORMAL SINUS RHYTHM NORMAL ECG Confirmed by JEREMIAS PAL MD () on 10/10/2023 1:01:07 PM NAME : DERRELL AVITIA PID : [id number] : 1970 Gender : Male Race : ORD : Procedure Date : Oct 01 2023 10:10:47 Edit Date : Oct 10 2023 13:09:54 Diagnosis: NORMAL SINUS RHYTHM NORMAL ECG Confirmed by JEREMIAS PAL MD () on 10/10/2023 1:01:07 PM Test Reason : Location : 117 : CA2RE Overread By : JEREMIAS PAL MD Edited By : JEREMIAS PAL MD Referred By : , Acquired by : Angeline lane [facility] ECHOon 10-01-2023 Echocardiography Echocardiography Report: Transthoracic Echo [facility] A17 Date of service: 10/01/2023 11:39:56 AM CALLER Ordering physician: WILLIAM HOWELL Indication: Baseline and serial evaluation in a patient undergoing therapy with cardiotoxic agents Technologist: Clary Fermin RDCS and Patricia Yi Interpreting physician: Tyron Torres MD, PhD PATIENT: Name: MR. DERRELL AVITIA JR : 1970 Age: 53 years Gender: M Primary rhythm: sinus. Height: 177.80 cm BSA: 2.50 m Weight: 126.55 kg BMI: 40.0 kg/m Heart rate 61 bpm Blood pressure 122/69 mmHg Technically difficult exam due to body habitus and suboptimal positioning. Color Doppler was utilized to interrogate the cardiac valves assessed and spectral Doppler was utilized to determine the flow velocities and pressure gradients reported in this exam. Myocardial strain analysis was performed in this exam to aid in the assessment of cardiac function. MEASUREMENTS: Value Indexed Normal Max aortic dimension 4.3 cm Ao < 3.8 Left atrial volume 75 ml (biplane A-L) 30 ml/m eLo <= 34 LV ID (diastole) 4.3 cm (2D) 1.72 cm/m LV ID (systole) 2.1 cm (2D) 0.84 cm/m IVS, leaflet tips 1.4 cm (2D) Posterior wall thickness 0.8 cm (2D) Left ventricular mass 163 g (2D) 65 g/m Global peak long strain -16.8 % LV stroke volume 87 ml (2D biplane) LV end diastolic volume 150 ml (2D biplane) 60.1 ml/m 34<=EDVi<75 LV end systolic volume 63 ml (2D biplane) 25.3 ml/m Ejection Fraction 58 % (2D biplane) EF > 52 FINDINGS: LEFT VENTRICLE The left ventricle is normal in size. There is mild septal left ventricular hypertrophy. Left ventricular systolic function is normal. Global LV myocardial strain is normal. Normal left ventricular diastolic function. Mitral annular lateral E/e': 9.7. Mitral annular septal E/e': 12.5. Wall Motion: All scored segments are normal. RIGHT VENTRICLE The right ventricle is normal in size. Right ventricular systolic function is normal. RV systolic tissue Doppler velocity is 13.9 cm/s. Estimated right ventricular systolic pressure is likely underestimated due to a weak or incomplete tricuspid regurgitation signal and is, at least, 29 mmHg plus right atrial pressure. Estimated right atrial pressure is not included as the IVC was not seen. LEFT ATRIUM The left atrial cavity is normal in size. RIGHT ATRIUM The right atrial cavity is normal in size. MITRAL VALVE The mitral valve leaflets are structurally normal. There is trace mitral valve regurgitation. The pressure half time is 68 msec. The peak mitral E/A ratio is 1.10. The average mitral E/e' ratio is 11.1. The mitral flow deceleration time is 235 msec. TRICUSPID VALVE The tricuspid valve leaflets are structurally normal. There is trace tricuspid valve regurgitation. AORTIC VALVE There is trace aortic valve regurgitation. Tricuspid aortic valve. There is mild thickening. PULMONIC VALVE The pulmonic valve cusps are structurally normal. There is no pulmonic valve regurgitation. AORTA The visualized aorta is dilated. Measurements - Sinus: 4.3 cm. Sinotubular junction 3.6 cm. Mid ascending aorta 3.7 cm. PULMONARY ARTERIES The pulmonary arteries are normal. INTERATRIAL SEPTUM There is no evidence of intracardiac shunting as detected by Doppler. INTERVENTRICULAR SEPTUM There is no flow through the interventricular septum as detected by Doppler. PERICARDIUM There is no pericardial effusion. There is an epicardial fat pad. CONCLUSIONS: - Technically difficult exam due to body habitus and suboptimal positioning. - Exam indication: Baseline and serial evaluation in a patient undergoing therapy with cardiotoxic agents - The left ventricle is normal in size. There is mild septal left ventricular hypertrophy. Left ventricular systolic function is normal. EF = 58 5% (2D biplane) Normal left ventricular diastolic function. - The right ventricle is normal in size. Right ventricular systolic function is normal. - The visualized aorta is dilated with a maximal dimension of 4.3 cm. - Suboptimal images to perform GLS. - Exam was compared with the prior echocardiographic exam performed on 07/09/2023. There is no significant change. * * * Final * * * [employer] [facility] : [id number] Normal [facility] HIGH SENSITIVITY TROPONIN To n 10-01-2023 Troponin T.cardiac High sensitivity method [Mass/Vol] 32 ng/L High <12 [facility] Comment on above: Order Comment: Rosa gaspar Type: BLOOD SPECIMENOrdering Facility: [facility] Address: [address] [place] [address] Result Comment: When assessing risk for acute [...] MACE. Performed By: #### H STNT, 2157-6 ####[facility] [id number] [place] [address] [place] HbA1c (Bld)on 10-01-2023 Average glucose Estimated from glycated hemoglobin (Bld) [Mass/Vol] 148 mg/dL Normal [facility] Comment on above: Order Comment: Rosa gaspar Type: BLOOD SPECIMEN [facility] Address: [address] [place] [address] Result Comment: eAG: (Estimated average glucose) is a calculated value from HgbA1c and is medical service representative of the average blood glucose level in the last 2-3 month period. Performed By: #### 5 7021-8 #### [facility] [id number] [address] [place] [address] [place] HbA1c (Bld) [Mass fraction] 6.8 % High 4.3-5.6 [facility] Comment on above: Order Comment: Rosa gaspar Type: BLOOD SPECIMEN [facility] Address: [address] [place] [address] Result Comment: [place] Diabetes Association guidelines indicate that patients with HgbA1c in the range 5.7-6.4% are at increased risk for development of diabetes, and intervention by lifestyle modification may be beneficial. HgbA1c greater or equal to 6.5% is considered diagnostic of diabetes. Performed By: #### 5 7021-8 #### [facility] [place] [id number] [address] [place], [place] [id number] [place] Lipase SerPl-cCncon 10-01-19 Lipase [Catalytic activity/Vol] 35 U/L Normal 16-61 [facility] Comment on above: Order Comment: Speci men Type: BLOOD SPECIMENOrdering Facility: [facility] Address: [address] [place] [address] Performed By: #### 1 5152-2, 3040-3, 1798-8, 26367-2, 7-1 ####[facility] [id number] [place] [address] [place] Magnesium SerPl-mCncon 09-30 Magnesium [Mass/Vol] 2.2 mg/dL Normal 1.7-2.3 [facility] Comment on above: Order Comment: Speci men Type: BLOOD SPECIMENOrdering Facility: [facility] Address: [address] [place] [address] Performed By: #### 1 5152-2, 3040-3, 1798-8, 46539-8, 2777- ####[facility] [id number] [place] [address] [place] NURSING PROGon 10-01-2023 NURSING PROG HNO ID: [id number] Author: EMILY ANTHONY LPN Service: ? Author Type: LICENSED NURSE Type: Nursing Progress Note Filed: 10/01/2023 10:34 Note Text: Pre- e instructions: Contacted patients Tracy and confirmed appt. for bone marrow biopsy scheduled on 10/02/25, at [facility]. Diet: Do not eat solid food after midnight the night before your procedure. You may have water until 6:00am Medications: IF ok with your Prescribing Provider: RADIOLOGY RECOMMENDS THESE MEDICATION RESTRICTIONS : Farxiga, Humalog, Lantus Hold Farxiga oral hypoglycemic the day of this procedure Hold short acting insulin the day of procedure. Long acting insulin, take ? dose. Medication pumps: Insulin pumps must be removed before entering the procedure room. Do you wear Neulasta Onpro? No Mary Ann sensor to be removed before entering room Contrast Dye Prep: Do you have a contrast dye allergy? No Arrival: Please bring your Photo ID and Insurance Card. A general consent may need to be signed. Arrival at 6:30am to desk QB-1 (Mackenzie Foster) and check in for your procedure. Clay Miller/Transportation: How will you be arriving for your procedure? Private car. If you will be arriving at [facility] via ambulance or public transportation, please call to discuss. You will need a responsible adult to accompany you to and from the procedure. Your front end driver is required to stay with you until you are taken into the Procedure room. Recovery expectations: You can expect to be at the hospital for the majority of the day. Please do not schedule any other appointments the day of your procedure. Written instructions provided to patient via [employer] If you have any questions please call [phone] Normal [facility] PT panel Coag (PPP)on 2023 INR Coag (PPP) [Relative time] 1.0 {INR} Normal 0.9-1.3 [facility] Comment on above: Order Comment: Speci men Type: BLOOD SPECIMEN [facility] Address: [address] [place] [address] Result Comment: Nyla min K Antagonist (VKA) Therapeutic Range: INR 2 to 3 (Target INR of 2.5) Note: For patients treated with VKA drugs, such as warfarin, the [place] [employer] 2012 Guideline recommends a therapeutic INR range of 2 to 3 (target INR of 2.5). This recommendation includes high-risk patients with antiphospholipid syndrome with previous arterial or venous thromboembolism, current-generation mechanical or bioprosthetic aortic heart valve replacement. Note: Patients with mechanical aortic valve replacement and additional risk factors for thromboembolic events (atrial fibrillation, previous thromboembolism, LV dysfunction, hypercoagulable conditions) or an older generation mechanical AVR (i.e., ball in-Cage) or any mechanical MVR should have a INR therapeutic range of 2.5 to 3.5 (target INR of 3). Coby REYES, et al. Chest 2012, 141:7S-47S Surinder MARTINEZ et al. JAC 2017, 70: 252-289 Performed By: #### 5 7021-8 #### [facility] [id number] [address] [place] [address] [place] PT Coag (PPP) [Time] 11.0 s Normal 9.7-13.0 [facility] Comment on above: Order Comment: Speci men Type: BLOOD SPECIMEN [facility] Address: [address] [place] [address] Performed By: #### 5 7021-8 #### [facility] [id number] [address] [place] [address] [place] Phosphate SerPl-mCncon 09-30 Phosphate [Mass/Vol] 3.7 mg/dL Normal 2.7-4.8 [facility] Comment on above: Order Comment: Speci men Type: BLOOD SPECIMENOrdering Facility: [facility] Address: [address] [place] [address] Performed By: #### 1 5152-2, 3040-3, 1798-8, 39409-4, 2777-1 ####[facility] [id number] [place] [address] [place] Trigl SerPl-mCncon Triglyceride [Mass/Vol] 139 mg/dL Normal <150 [facility] Comment on above: Order Comment: Speci men Type: BLOOD SPECIMENOrdering Facility: [facility] Address: [address] [place] [address] Result Comment: <150 mg/dL, Normal 150-199 mg/dL, Borderline high 200-499 mg/dL, High >499 mg/dL, Very high Reference: 1. National Cholesterol Education Program ATP III Guideline At-A-Glance Quick Desk Reference: National Heart, Lung, and Blood English. National Institutes of Health. 2001: NIH Publication No. 01-3305. Performed By: #### 2 4323-8, 2571-8, 3084-1 ####[facility] [id number] [place] [address] [place] Triglyceride [Mass/Vol]on FASTING TIME 12 hrs Normal [facility] Comment on above: Order Comment: Speci men Type: BLOOD SPECIMENOrdering Facility: [facility] Address: [address] [place] [address] Performed By: #### 2 4323-8, 2571-8, 3084-1 ####[facility] [id number] [place] [address] [place] URINALYSIS, DIPSTICK ONLYon 10-01-2023 Bilirubin Ql (U) Negative Normal Negative [facility] Comment on above: Order Comment: Speci men Type: URINE SPECIMENOrdering Facility: [facility] Address: [address] [place] [address] Performed By: #### U A ####[facility] [id number] [place] [address] [place] Clarity (Unsp spec) Clear Normal Clear [facility] Comment on above: Order Comment: Speci men Type: URINE SPECIMENOrdering Facility: [facility] Address: [address] [place] [address] Performed By: #### U A ####[facility] [id number] [place] [address] [place] Color (U) Yellow Normal Yellow [facility] Comment on above: Order Comment: Speci men Type: URINE SPECIMENOrdering Facility: [facility] Address: [address] [place] [address] Performed By: #### U A ####[facility] [id number] [place] [address] [place] Glucose Test strip (U) [Mass/Vol] 3+ Abnormal Negative [facility] Comment on above: Order Comment: Speci men Type: URINE SPECIMENOrdering Facility: [facility] Address: [address] [place] [address] Performed By: #### U A ####[facility] [id number] [place] [address] [place] Hemoglobin Ql (U) Negative Normal Negative [facility] Comment on above: Order Comment: Speci men Type: URINE SPECIMENOrdering Facility: [facility] Address: [address] [place] [address] Performed By: #### U A ####[facility] [id number] [place] [address] [place] Ketones Ql (U) Negative Normal Negative [facility] Comment on above: Order Comment: Speci men Type: URINE SPECIMENOrdering Facility: [facility] Address: [address] [place] [address] Performed By: #### U A ####[facility] [id number] [address] [place] Leukocyte esterase Test strip Ql (U) Negative Normal Negative [facility] Comment on above: Order Comment: Speci men Type: URINE SPECIMENOrdering Facility: [facility] [facility] Address: [address] [place] [address] Performed By: #### U A ####[facility] [id number] [place] [address] [place] Nitrite Ql (U) Negative Normal Negative [facility] Comment on above: Order Comment: Speci men Type: URINE SPECIMENOrdering Facility: [facility] Address: [address] [place] [address] Performed By: #### U A ####[facility] [id number] [place] [address] [place] pH (U) 5.5 [pH] Normal <8.5 [facility] Comment on above: Order Comment: Speci men Type: URINE SPECIMENOrdering Facility: [facility] Address: [address] [place] [address] Performed By: #### U A ####[facility] [id number] [place] [address] [place] Protein (U) [Mass/Vol] Negative Normal Negative [facility] Comment on above: Order Comment: Speci men Type: URINE SPECIMENOrdering Facility: [facility] Address: [address] [place] [address] Performed By: #### U A ####[facility] [id number] [place] [address] [place] Specific gravity (U) [Rel density] 1.026 Normal 1.005-1.030 [facility] Comment on above: Order Comment: Speci men Type: URINE SPECIMENOrdering Facility: [facility] Address: [address] [place] [address] Performed By: #### U A ####[facility] [id number] [place] [address] [place] [facility] Urobilinogen Ql (U) 0.2 EU/dL Normal 0.2-1.0 EU/dL [facility] Comment on above: Order Comment: Speci men Type: URINE SPECIMENOrdering Facility: [facility] Address: [address] [place] [address] Performed By: #### U A ####[facility] [id number] [place] [address] [place] Urate SerPl-mCncon 4 Urate [Mass/Vol] 3.1 mg/dL Low 4.0-8.1 [facility] Comment on above: Order Comment: Speci men Type: BLOOD SPECIMENOrdering Facility: [facility] Address: [address] [place] [address] Performed By: #### 2 4323-8, 2571-8, 3084-1 ####[facility] [id number] [place] [address] [place] aPTT PPPon 10-01-2023 aPTT Coag (PPP) [Time] 28.1 s Normal 23.0-32.4 [facility] Comment on above: Order Comment: Speci men Type: BLOOD SPECIMEN [facility] Address: [address] [place] [address] Performed By: #### 5 7021-8 #### [facility] CLIA [id number] [address] [place] [address] CNPNandini 09-05-2023 CNPN Telephone (HEMAMN) DERRELL AVITIA JR ([id number]) 1970 M Date Time Provider Department 09/05/23 RAHEEM SANTOS HEMAMN During your visit today, we recorded the following information about you: Raheem Santos, Research Coordinator 09/05/2023 2:03 PM Signed IRB# [id number]/[facility]# ARIA [id number]: Study Description A Randomized, Open-label, Phase 2 Trial of 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 14 days till 5 years, starting after the last dose of ponatinib or the art conservator/patient decision to discontinue treatment--whichever occurs later. Chart Review for survival performed Raheem Santos, Research Coordinator . Patient was last seen Office visit on 08/29/2023 by Kylee Dalal APRN.NETWORK INTELLIGENCE ANALYST Current treatment is Trial ACTG 1920 Next survival f/u due November 27, 2023 Patient aware that next follow up call will occur on November 27, 2023. Patient knows to call in the interim for any questions or concerns. Raheem Santos, Research Coordinator September 05, 2023 2:00 PM Allergies As of Date: 09/05/2023 Noted Allergy Reaction OPIOIDS - MORPHINE ANALOGUES 03/11/2023 11 - Vomiting 8 - GI Upset Date Reviewed: 08/29/2023 Reviewed by: Ai Blum MA - Fully Assessed Reason for Visit: Research [293] Cmt: MIGUEL ANGEL 291 Survival Follow-up Prescriptions as of 09/05/2023 - pravastatin (PRAVACHOL) 80 mg tablet Take 1 tablet by mouth once daily. - blood sugar diagnostic (FREESTYLE PRECISION ADDISON STRIPS) test strip Use with blood glucose test one time daily - insulin lispro (HUMALOG KWIKPEN) 100 unit/mL Inject 15 units with breakfast and lunch and 20 units with dinner plus sliding scale (Max daily dose of 91 units daily) - amLODIPine (NORVASC) 10 mg tablet Take 10 mg by mouth. - dapagliflozin propanediol (FARXIGA) 10 mg tablet Take 1 tablet by mouth daily with breakfast. - flash glucose sensor (FREESTYLE MARY ANN 2 SENSOR) kit USE DIRECTED EVERY 14 DAYS - lisinopril (ZESTRIL) 20 mg tablet Take 20 mg by mouth once daily. - insulin glargine (LANTUS SOLOSTAR U-100 INSULIN) 100 unit/mL (3 mL) Inject 35 Units subcutaneously twice daily. - flash glucose scanning reader (FREESTYLE MARY ANN 2 READER) Check glucose 4 times daily - fluocinonide (LIDEX) 0.05 % ointment Apply to affected areas of rash twice daily x 2 weeks, then once daily x 2 weeks. NOT for face, armpits, or groin - omega-3 acid ethyl esters (LOVAZA) 1 gram capsule Take 2 capsules by mouth twice daily. - Insulin Syringe-Needle U-100 1 mL 25 x 1 syrg Use 1 syringe once daily to administer peg-interferon dose. - ibuprofen (MOTRIN) 800 mg tablet Facility-Administered Medications as of 09/05/2023 - sodium chloride 0.9 % (flush) 10 mL (BD POSIFLUSH) - perflutren lipid microspheres 1.3 mL in NaCl (PF) 0.9% 10 mL injection (DEFINITY) - sodium chloride 0.9 % (flush) 10 mL (BD POSIFLUSH) - perflutren lipid microspheres 1.3 mL in NaCl (PF) 0.9% 10 mL injection (DEFINITY) - sodium chloride 0.9 % (flush) 10 mL (BD POSIFLUSH) - perflutren lipid microspheres 1.3 mL in NaCl (PF) 0.9% 10 mL injection (DEFINITY) - sodium chloride 0.9 % (flush) 10 mL (BD POSIFLUSH) Meds Comments as of 12/22/2020: pt is on investigational med Problem List As Of Date 09/05/2023 Noted Resolved CML (chronic myeloid leukemia) [C92.10] 04/06/2012 Rash [R21] 07/15/2017 Encounter Status:Closed by RAHEEM BRYANT on 09/05/23 Normal [facility] CNOVon 08-29-2023 CNOV Office Visit (ENDOLN ) DERRELL AVITIA JR ([id number]) 1970 M Date Time Provider Department 08/29/23 7:45 AM KYLEE DALAL ENDOLN During your visit today, we recorded the following information about you: Pulse Blood pressure Weight 61/minute 120/62 122 kg Kylee Dalal APRN.CNP 08/29/2023 8:12 AM Signed Endocrinology Follow Up PCP: Buffy Chung [facility] Physicians History of Present Illness Derrell Avitia JR is a 52 year old male presents today for follow up of DM Type 2. At [facility] increased insulin and started Farxiga. Sugars have [...] Take 20 mg by mouth once daily. BERT Inhibitors pravastatin (PRAVACHOL) 40 mg tablet Take [...] dose. Medical Supplies and DME - Insulin Tynan-Syringes and Admin Supplies omega-3 acid ethyl esters (LOVAZA) 1 gram capsule Take 2 capsules by mouth twice daily. Antihyperlipidemic - [place]-3 Fatty Acid Type Physical Activity: Sedentary Diet: [...] Review of Systems GENERAL: No weight loss, mal (more content not included)... Normal [facility] MR CARDIAC FOR MORPH W WO CO [...] Alex Mora MD on 08/08/2023 4:15 PM [facility] MR CARDIAC VELOCITY OTILIO VICTORINO [facility] 08-08-2023 MR CARDIAC VELOCITY OTILIO MAPPING [...] Mora MD on 08/08/2023 4:15 PM Normal [facility] XR EYE FOREIGN BODY LOCALIZA TIONon 07-31-2023 XR EYE FOREIGN BODY LOCALIZATION XR [...] Jaime MD on 07/31/2023 11:02 AM Normal [facility] XR Shoulder - right 4 Viewso n 06-15-2023 IMPRESSION: Moderate glenohumeral and acromioclavicular joint degenerative changes with joint space narrowing and osteophytes. No acute fracture or dislocation. Subacromial space is maintained. No other significant abnormality. Key Operator: CHLOE Transcribe Date/Time: Jun 15 2023 10:32P Dictated by : EZRA KANG MD This examination was interpreted and the report reviewed and electronically signed by: EZRA KANG MD on Jun 15 2023 10:33PM [facility] DIVISION OF RADIOLOGY * * *Final Report* * * DATE OF EXAM: Jun 13 2023 10:37AM LZX [id number] - XR SHLDR 4V AP/MAIKOL/LAT/OUTLET RT / PROCEDURE REASON: Right shoulder pain, unspecified chronicity * * * * Physician Interpretation * * * * EXAMINATION: XR SHLDR 4V AP/MAIKOL/LAT/OUTLET RT HISTORY: CHRONIC RIGHT SHOULDER PAIN, HX OF TORN ROTATOR CUFF Right shoulder pain, unspecified chronicity . TECHNIQUE: XR SHLDR 4V AP/MAIKOL/LAT/OUTLET RT Laterality: RIGHT Number of different views (projections): 4 M: XB_1 COMPARISON: None RESULT/ DIVISION OF RADIOLOGY Provider, Luis M Anne English - 06/15/2023 * * *Final Report* * * DATE OF EXAM: Jun 13 2023 10:37AM LZX [id number] - XR SHLDR 4V AP/MAIKOL/LAT/OUTLET RT / PROCEDURE REASON: Right shoulder pain, unspecified chronicity * * * * Physician Interpretation * * * * EXAMINATION: XR SHLDR 4V AP/MAIKOL/LAT/OUTLET RT HISTORY: CHRONIC RIGHT SHOULDER PAIN, HX OF TORN ROTATOR CUFF Right shoulder pain, unspecified chronicity . TECHNIQUE: XR SHLDR 4V AP/MAIKOL/LAT/OUTLET RT Laterality: RIGHT Number of different views (projections): 4 M: XB_1 COMPARISON: None RESULT/ IMPRESSION IMPRESSION: Moderate glenohumeral and acromioclavicular joint degenerative changes with joint space narrowing and osteophytes. No acute fracture or dislocation. Subacromial space is maintained. No other significant abnormality. Key Operator: PSCB Transcribe Date/Time: Jun 15 2023 10:32P Dictated by : EZRA KANG MD This examination was interpreted and the report reviewed and electronically signed by: EZRA KANG MD on Jun 15 2023 10:33PM EST [facility] XR Shoulder - right 4 ViewsO rdered By: Ccf Provider on 06-15-2023 [facility] XR Shoulder - right 4 Viewso n 06-13-2023 Radiology Study observation (narrative) [facility] CBC W Auto Differential pane l (Bld)on 04-18-2023 Basophils (Bld) [#/Vol] 0.08 10*3/uL <0.11 k/uL [facility] Basophils/100 WBC (Bld) 0.6 % [facility] Differential cell count method Nom (Bld) Auto [facility] Eosinophils (Bld) [#/Vol] 0.60 10*3/uL High <0.46 k/uL [facility] Eosinophils/100 WBC (Bld) 4.7 % [facility] Erythrocyte distribution width (RBC) [Ratio] 14.3 % 11.5 - 15.0 % [facility] Hematocrit (Bld) [Volume fraction] 47.6 % 39.0 - 51.0 % [facility] Hemoglobin (Bld) [Mass/Vol] 16.0 g/dL 13.0 - 17.0 g/dL [facility] Immature granulocytes (Bld) [#/Vol] 0.09 10*3/uL <0.10 k/uL [facility] Immature granulocytes/100 WBC (Bld) 0.7 % [facility] Lymphocytes (Bld) [#/Vol] 3.23 10*3/uL 1.00 - 4.00 k/uL [facility] Lymphocytes/100 WBC (Bld) 25.3 % [facility] MCH (RBC) [Entitic mass] 26.7 pg 26.0 - 34.0 pg [facility] MCHC (RBC) [Mass/Vol] 33.6 g/dL 30.5 - 36.0 g/dL [facility] MCV (RBC) [Entitic vol] 79.3 fL Low 80.0 - 100.0 fL [facility] Monocytes (Bld) [#/Vol] 0.86 10*3/uL <0.87 k/uL [facility] Monocytes/100 WBC (Bld) 6.7 % [facility] Neutrophils (Bld) [#/Vol] 7.89 10*3/uL High 1.45 - 7.50 k/uL [facility] Neutrophils/100 WBC (Bld) 62.0 % [facility] Nucleated RBC (Bld) [#/Vol] <0.01 k/uL [facility] Nucleated RBC/100 WBC (Bld) [Ratio] 0.0 /100 WBC [facility] Platelet mean volume (Bld) [Entitic vol] 10.2 fL 9.0 - 12.7 fL [facility] Platelets (Bld) [#/Vol] 275 10*3/uL 150 - 400 k/uL [facility] RBC (Bld) [#/Vol] 6.00 10*6/uL 4.20 - 6.0 0 m/uL [facility] WBC (Bld) [#/Vol] 12.75 10*3/uL High 3.70 - 11 .00 k/uL [facility] ECHOon 04-16-2023 [facility] Office Visiton 10-16-2022 Follow-up visit [id number] Eda Avitia smita 1970 M Date Provider Department Center 10/16/2022 ANGUS FRAZIER MP ORTHO MPORTHO No family history on file Level of Service:14121 [place] OFFICE/OUTPATIENT NEW LOW MDM 30-44 MINUTES (GC) Reason for Visit and Comments: Pain [136] Normal [facility] HEMOGLOBIN A1C (POC)on 10-15 HbA1c (Bld) [Mass fraction] 8.5 % Abnormal 4.2 - 5.6 % [facility] CBC AUTO DIFFon 08-06-2022 BASO # 0.1 103/ul Normal 0.0-0.1 [facility] Comment on above: Performed By: #### C BC #### [facility] [address] [address] [address] Yinka Flores Basophils/100 WBC (Bld) 0.8 % Normal 0.2-2.0 [facility] Comment on above: Performed By: #### C BC #### [facility] [address] [address] [address] iYnka Flores EO # 0.5 103/ul Normal 0.0-0.7 [facility] Comment on above: Performed By: #### C BC #### [facility] [address] [address] [address] Yinka Flores Eosinophils/100 WBC (Bld) 4.5 % Normal 0.9-7.0 [facility] Comment on above: Performed By: #### C BC #### [facility] [address] [address] [address] Yinka Flores Erythrocyte distribution width (RBC) [Ratio] 14.4 % Normal 11.0-15.0 [facility] Comment on above: Performed By: #### C BC #### [facility] [address] [place] [address] Dr. Yinka Flores Hematocrit (Bld) [Volume fraction] 43.6 % Normal 42.0-54.0 [facility] Comment on above: Performed By: #### C BC #### [facility] [address] [place] [address] Dr. Yinka Flores Hemoglobin (Bld) [Mass/Vol] 14.7 g/dL Normal 14.0-18.0 [facility] Comment on above: Performed By: #### C BC #### [facility] [address] [place] [address] Dr. Yinka Flores IG # 0.06 10e3/ul Critically high 0.00-0.03 [facility] Comment on above: Performed By: #### C BC #### [facility] [address] [place] [address] Dr. Yinka Flores IG % 0.5 % Normal 0.0-0.5 [facility] Comment on above: Performed By: #### C BC #### [facility] [address] [place] [address] Dr. Yinka Flores LYMPH # 3.3 103/ul Normal 1.2-3.8 [facility] Comment on above: Performed By: #### C BC #### [facility] [address] [place] [address] Dr. Yinka Flores Lymphocytes/100 WBC (Bld) 27.8 % Normal 20.5-60.0 [facility] Comment on above: Performed By: #### C BC #### [facility] [address] [place] [address] Dr. Yinka Flores MANUAL DIFF REQ NO Normal [facility] Comment on above: Performed By: #### C BC #### [facility] [address] [place] [address] Dr. Yinka Flores MCH (RBC) [Entitic mass] 26.1 pg Normal 25.9-34.0 [facility] Comment on above: Performed By: #### C BC #### [facility] [address] [place] [address] Dr. Yinka Flores MCHC (RBC) [Mass/Vol] 33.7 g/dL Normal 29.9-35.2 [facility] Comment on above: Performed By: #### C BC #### [facility] [address] [place] [address] Dr. Yinka Flores MCV (RBC) [Entitic vol] 77.3 fL Critically low 80.0-94.0 [facility] Comment on above: Performed By: #### C BC #### [facility] [address] [place] [address] Dr. Yinka Flores MONO # 0.8 103/ul Normal 0.3-0.8 [facility] Comment on above: Performed By: #### C BC #### [facility] [address] [place] [address] Dr. Yinka Flores Monocytes/100 WBC (Bld) 6.6 % Normal 1.7-12.0 [facility] Comment on above: Performed By: #### C BC #### [facility] [address] [place] [address] Dr. Yinka Flores NEUT # 7.1 103/ul Critically high 1.4-6.5 [facility] Comment on above: Performed By: #### C BC #### [facility] [address] [place] [address] Dr. Yinka Flores Neutrophils/100 WBC (Bld) 59.8 % Normal 43.0-75.0 [facility] Comment on above: Performed By: #### C BC #### [facility] [address] [place] [address] Dr. Yinka Flores Platelet mean volume (Bld) [Entitic vol] 9.5 fL Normal 9.5-13.5 [facility] Comment on above: Performed By: #### C BC #### [facility] [address] [place] [address] Dr. Yinka Flores PLT 257 103/ul Normal 150-450 [facility] Comment on above: Performed By: #### C BC #### [facility] [address] [place] [address] Dr. Yinka Flores RBC 5.64 106/ul Normal 4.70-6.10 [facility] Comment on above: Performed By: #### C BC #### [facility] [address] [address] [address] Yinka Flores WBC 11.9 103/ul Critically high 4.0-11.0 [facility] Comment on above: Performed By: #### C BC #### [facility] [address] [place] [address] Dr. Yinka Flores GLYCOHEMOGLOBIN A1Con 2022 ADA RECOMMENDATION SEE BELOW Normal [facility] Comment on above: Result Comment: ADA RECOMMENDED LIMIT 4.0 - 6.0 ADA THERAPEUTIC TARGET < 7.0 ACTION SUGGESTED > 7.0 Performed By: #### A 1C #### [facility] [address] [place] [address] Dr. Yinka Flores Glucose [Mass/Vol] 189 mg/dL Normal [facility] Comment on above: Performed By: #### A 1C #### [facility] [address] [place] [address] Dr. Yinka Flores HbA1c (Bld) [Mass fraction] 8.2 % Critically high 4.5-6.2 [facility] Comment on above: Performed By: #### A 1C #### [facility] [address] [place] [address] Dr. Yinka Flores LIPID PROFILEon 08-06-2022 CHOL-HDL RATIO NORM SEE BELOW Normal [facility] Comment on above: Result Comment: 3.3 - 4.4 LOW RISK 4.4 - 7.1 AVERAGE RISK 7.1 - 11.0 MODERATE RISK >11.0 HIGH RISK Performed By: #### L IPID, CMP #### [facility] [address] [place] [address] Dr. Yinka Flores Cholesterol [Mass/Vol] 251 mg/dL Critically high <=200 [facility] Comment on above: Performed By: #### L IPID, CMP #### [facility] [address] [address] [address] Yinka Flores Cholesterol in HDL [Mass/Vol] 34 mg/dL Critically low 40-60 [facility] Comment on above: Performed By: #### L IPID, CMP #### [facility] [address] [address] [address] Yinka Flores Cholesterol in LDL [Mass/Vol] 172.4 mg/dL Normal [facility] Comment on above: Performed By: #### L IPID, CMP #### [facility] [address] [address] [address] Yinka Flores Cholesterol.total/Cho lesterol in HDL [Mass ratio] 7.4 {ratio} Normal [facility] Comment on above: Performed By: #### L IPID, CMP #### [facility] [address] [address] [address] Yinka Flores HDL NORMAL > or = 60 mg/dl - LO W CARDIOVASCULAR RISK <40 mg/dl - HIGH CARDIOVASCULAR RISK Normal [facility] Comment on above: Performed By: #### L IPID, CMP #### [facility] [address] [address] [address] Yinka Flores LDL CALC NORMAL SEE BELOW Normal [facility] Comment on above: Result Comment: <100 mg/dl OPTIMAL 100 - 129 mg/dl NEAR OR ABOVE OPTIMAL 130 - 159 mg/dl BORDERLINE HIGH 160 - 189 mg/dl HIGH >190 mg/dl VERY HIGH Performed By: #### L IPID, CMP #### [facility] [address] [address] [address] Yinka Flores Triglyceride [Mass/Vol] 223 mg/dL Critically high <=[address] [facility] Comment on above: Performed By: #### L IPID, CMP #### [facility] [address] [address] [address] Yinka Flores VLDL CALC 44.6 mg/dL Normal [facility] Comment on above: Performed By: #### L IPID, CMP #### [facility] [address] [address] [address] Yinka Flores MICROALBUMIN, RAND URon 07-11 mALB 2.0 mg/L Normal <=30.0 [facility] Comment on above: Performed By: #### M ALBR #### [facility] [address] [place] [address] Dr. Yinka Flores PROF 14(COMP METB)on 023 Albumin [Mass/Vol] 3.7 g/dL Normal 3.4-5.0 [facility] Comment on above: Performed By: #### L IPID, CMP #### [facility] [address] [place] [address] Dr. Yinka Flores Albumin/Globulin [Mass ratio] 0.7 {ratio} Normal [facility] Comment on above: Performed By: #### L IPID, CMP #### [facility] [address] [place] [address] Dr. Yinka Flores ALP [Catalytic activity/Vol] 179 U/L Critically high 46-116 [facility] Comment on above: Performed By: #### L IPID, CMP #### [facility] [address] [place] [address] Dr. Yinka Flores ALT [Catalytic activity/Vol] 46 U/L Normal 16-63 [facility] Comment on above: Performed By: #### L IPID, CMP #### [facility] [address] [place] [address] Dr. Yinka Flores Anion gap [Moles/Vol] 10.7 mmol/L Normal [facility] Comment on above: Performed By: #### L IPID, CMP #### [facility] [address] [place] [address] Dr. Yinka Flores AST [Catalytic activity/Vol] 29 U/L Normal 15-37 [facility] Comment on above: Performed By: #### L IPID, CMP #### [facility] [address] [place] [address] Dr. Yinka Flores Bilirubin [Mass/Vol] 0.3 mg/dL Normal 0.2-1.0 [facility] Comment on above: Performed By: #### L IPID, CMP #### [facility] [address] [address] [address] Yinka Flores Calcium [Mass/Vol] 9.4 mg/dL Normal 8.5-10.1 [facility] Comment on above: Performed By: #### L IPID, CMP #### [facility] [address] [place] [address] Dr. Yinka Flores Chloride [Moles/Vol] 100 mmol/L Normal 98-107 [facility] Comment on above: Performed By: #### L IPID, CMP #### [facility] [address] [place] [address] Dr. Yinka Flores CO2 [Moles/Vol] 29.4 mmol/L Normal 21.0-32.0 [facility] Comment on above: Performed By: #### L IPID, CMP #### [facility] [address] [place] [address] Dr. Yinka Flores Creatinine [Mass/Vol] 0.70 mg/dL Normal 0.70-1.30 [facility] Comment on above: Performed By: #### L IPID, CMP #### [facility] [address] [place] [address] Dr. Yinka Flores EGFR-AF NAURUAN >60 Normal >=60 [facility] Comment on above: Performed By: #### L IPID, CMP #### [facility] [address] [place] [address] Dr. Yinka Flores EGFR-NON AF NAURUAN >60 Normal >=60 [facility] Comment on above: Performed By: #### L IPID, CMP #### [facility] [address] [place] [address] Dr. Yinka Flores Globulin (S) [Mass/Vol] 5.1 g/dL Normal [facility] Comment on above: Performed By: #### L IPID, CMP #### [facility] [address] [place] [address] Dr. Yinka Flores Glucose [Mass/Vol] 108 mg/dL Critically high 74-106 [facility] Comment on above: Performed By: #### L IPID, CMP #### [facility] [address] [address] [address] Yinka Flores Potassium [Moles/Vol] 4.1 mmol/L Normal 3.5-5.1 [facility] Comment on above: Performed By: #### L IPID, CMP #### [facility] [address] [place] [address] Dr. Yinka Flores Protein [Mass/Vol] 8.8 g/dL Critically high 6.4-8.2 [facility] Comment on above: Performed By: #### L IPID, CMP #### [facility] [address] [address] [address] Yinka Flores Sodium [Moles/Vol] 136 mmol/L Normal 136-145 [facility] Comment on above: Performed By: #### L IPID, CMP #### [facility] [address] [place] [address] Dr. Yinka Flores Urea nitrogen [Mass/Vol] 11.0 mg/dL Normal 7.0-18.0 [facility] Comment on above: Performed By: #### L IPID, CMP #### [facility] [address] [place] [address] Dr. Yinka Flores Urea nitrogen/Creatinine [Mass ratio] 15.7 mg/mg Normal [facility] Comment on above: Performed By: #### L IPID, CMP #### [facility] [address] [place] [address] Dr. Yinka Flores UA RANDOM W/MICROSCOPICon BACTERIA NONE SEEN Normal NONE SEEN [facility] Comment on above: Performed By: #### U AMIC #### [facility] [address] [place] [address] Dr. Yinka Flores Bilirubin Ql (U) Negative Normal NEGATIVE [facility] Comment on above: Performed By: #### U AMIC #### [facility] [address] [place] [address] Dr. Yinka Flores CAST NONE SEEN Normal NONE SEEN [facility] Comment on above: Performed By: #### U AMIC #### [facility] [address] [address] [address] Yinka Flores Clarity (U) CLEAR Normal CLEAR [facility] Comment on above: Performed By: #### U AMIC #### [facility] [address] [address] [address] Yinka Flores Color (U) LT. YELLOW Normal YELLOW [facility] Comment on above: Performed By: #### U AMIC #### [facility] [address] [address] [address] Yinka Flores Crystals LM Nom (Urine sed) NONE SEEN Normal NONE SEEN [facility] Comment on above: Performed By: #### U AMIC #### [facility] [address] [place] [address] Dr. Yinka Flores Epithelial cells LM Ql (Urine sed) NONE SEEN Normal NONE SEEN /RARE [facility] Comment on above: Performed By: #### U AMIC #### [facility] [address] [place] [address] Dr. Yinka Flores Glucose Ql (U) Negative Normal NEGATIVE [facility] Comment on above: Performed By: #### U AMIC #### [facility] [address] [place] [address] Dr. Yinka Flores Hemoglobin Ql (U) Negative Normal NEGATIVE The [facility] Comment on above: Performed By: #### U AMIC #### [facility] [address] [place] [address] Dr. Yinka Flores Ketones Ql (U) Negative Normal NEGATIVE [facility] Comment on above: Performed By: #### U AMIC #### [facility] [address] [place] [address] Dr. Yinka Flores LEUKOCYTES Negative Normal NEGATIVE [facility] Comment on above: Performed By: #### U AMIC #### [facility] [address] [place] [address] Dr. Yinka Flores MUCOUS NONE SEEN Normal NONE SEEN [facility] Comment on above: Performed By: #### U AMIC #### [facility] [address] [place] [address] Dr. Yinka Flores Nitrite Ql (U) Negative Normal NEGATIVE [facility] Comment on above: Performed By: #### U AMIC #### [facility] [address] [address] [address] Yinka Flores pH (U) 6.0 [pH] Normal 5-9 [facility] Comment on above: Performed By: #### U AMIC #### [facility] [address] [address] [address] Yinka Flores RBC NONE SEEN Abnormal 0-2 [facility] Comment on above: Performed By: #### U AMIC #### [facility] [address] [address] [address] Yinka Flores SPEC GRAVITY <=1.005 Abnormal 1.005-<=1.025 [facility] Comment on above: Performed By: #### U AMIC #### [facility] [address] [place] [address] Dr. Yinka Flores UA PROTEIN Negative Normal NEGATIVE/ TRACE [facility] Comment on above: Performed By: #### U AMIC #### [facility] [address] [place] [address] Dr. Yinka Flores Urobilinogen Qn (U) 0.2 {Richi'U}/dL Normal 0.2 - 1. 0 [facility] Comment on above: Performed By: #### U AMIC #### [facility] [address] [place] [address] Dr. Yinka Flores WBC NONE SEEN Normal NONE SEEN [facility] Comment on above: Performed By: #### U AMIC #### [facility] [address] [place] [address] Dr. Yinka Flores HEMOGLOBIN A1C (POC)on 07-15 HbA1c (Bld) [Mass fraction] 9.1 % Abnormal 4.2 - 5.6 % [facility] HEMOGLOBIN A1C (POC)on 03-19 HbA1c (Bld) [Mass fraction] 9.6 % Abnormal 4.2 - 5.6 % [facility] CBC AUTO DIFFon 11-21-2021 BASO # 0.1 103/ul Normal 0.0-0.1 [facility] Comment on above: Performed By: #### A 1C #### [facility] [address] [address] [address] Yinka Flores Basophils/100 WBC (Bld) 0.7 % Normal 0.2-2.0 [facility] Comment on above: Performed By: #### A 1C #### [facility] [address] [address] [address] Yinka Flores EO # 0.4 103/ul Normal 0.0-0.[address] [facility] Comment on above: Performed By: #### A 1C #### [facility] [address] [address] [address] Yinka Flores Eosinophils/100 WBC (Bld) 4.0 % Normal 0.9-7.0 [facility] Comment on above: Performed By: #### A 1C #### [facility] [address] [address] [address] Yinka Flores Erythrocyte distribution width (RBC) [Ratio] 14.5 % Normal 11.0-15.0 [facility] Comment on above: Performed By: #### A 1C #### [facility] [address] [address] [address] Yinka Flores Hematocrit (Bld) [Volume fraction] 45.0 % Normal 42.0-54.0 [facility] Comment on above: Performed By: #### A 1C #### [facility] [address] [address] [address] Yinka Flores Hemoglobin (Bld) [Mass/Vol] 15.0 g/dL Normal 14.0-18.0 [facility] Comment on above: Performed By: #### A 1C #### [facility] [address] [address] [address] Yinka Flores IG # 0.06 10e3/ul Critically high 0.00-0.03 [facility] Comment on above: Performed By: #### A 1C #### [facility] [address] [address] [address] Yinka Flores IG % 0.6 % Critically high 0.0-0.5 [facility] Comment on above: Performed By: #### A 1C #### [facility] [address] [place] [address] Dr. Yinka Flores LYMPH # 2.1 103/ul Normal 1.2-3.8 [facility] Comment on above: Performed By: #### A 1C #### [facility] [address] [place] [address] Dr. Yinka Flores Lymphocytes/100 WBC (Bld) 19.6 % Critically low 20.5-60.0 [facility] Comment on above: Performed By: #### A 1C #### [facility] [address] [place] [address] Dr. Ynika Flores MANUAL DIFF REQ NO Normal [facility] Comment on above: Performed By: #### A 1C #### [facility] [address] [place] [address] Dr. Yinka Flores MCH (RBC) [Entitic mass] 26.1 pg Normal 25.9-34.0 [facility] Comment on above: Performed By: #### A 1C #### [facility] [address] [place] [address] Dr. Yinka Flores MCHC (RBC) [Mass/Vol] 33.3 g/dL Normal 29.9-35.2 [facility] Comment on above: Performed By: #### A 1C #### [facility] [address] [place] [address] Dr. Yinka Flores MCV (RBC) [Entitic vol] 78.3 fL Critically low 80.0-94.0 [facility] Comment on above: Performed By: #### A 1C #### [facility] [address] [place] [address] Dr. Yinka Flores MONO # 0.8 103/ul Normal 0.3-0.8 [facility] Comment on above: Performed By: #### A 1C #### [facility] [address] [place] [address] Dr. Yinka Flores Monocytes/100 WBC (Bld) 7.6 % Normal 1.7-12.0 [facility] Comment on above: Performed By: #### A 1C #### [facility] [address] [place] [address] Dr. Yinka Flores NEUT # 7.1 103/ul Critically high 1.4-6.5 [facility] Comment on above: Performed By: #### A 1C #### [facility] [address] [place] [address] Dr. Yinka Flores Neutrophils/100 WBC (Bld) 67.5 % Normal 43.0-75.0 [facility] Comment on above: Performed By: #### A 1C #### [facility] [address] [place] [address] Dr. Yinka Flores Platelet mean volume (Bld) [Entitic vol] 10.0 fL Normal 9.5-13.5 [facility] Comment on above: Performed By: #### A 1C #### [facility] [address] [place] [address] Dr. Yinka Flores PLT 256 103/ul Normal 150-[address] [facility] Comment on above: Performed By: #### A 1C #### [facility] [address] [place] [address] Dr. Yinka Flores RBC 5.75 106/ul Normal 4.70-6.[address] [facility] Comment on above: Performed By: #### A 1C #### [facility] [address] [place] [address] Dr. Yinka Flores WBC 10.5 103/ul Normal 4.0-11.[address] [facility] Comment on above: Performed By: #### A 1C #### [facility] [address] [place] [address] ABD/PELVIS WO CONon [...] SHANEL GOMEZ Date: 2021-11-21 17:[address] [facility] URINE PROFILEon 2 Bilirubin Ql (U) Negative Normal NEGATIVE [facility] Comment on above: Performed By: #### M ALBR #### [facility] [address] [place] [address] Dr. Yinka Flores Clarity (U) CLEAR Normal CLEAR [facility] Comment on above: Performed By: #### M ALBR #### [facility] [address] [address] [address] Yinka Flores Color (U) YELLOW Normal YELLOW [facility] Comment on above: Performed By: #### M ALBR #### [facility] [address] [address] [address] Yinka Flores ERUAHD A micrscopic examination will be performed if indicated. Normal [facility] Comment on above: Performed By: #### M ALBR #### [facility] [address] [address] [address] Yinka Flores Glucose Ql (U) 1000 mg/dl Abnormal NEGATIVE [facility] Comment on above: Performed By: #### M ALBR #### [facility] [address] [address] [address] Yinka Flores Hemoglobin Ql (U) Negative Normal NEGATIVE [facility] Comment on above: Performed By: #### M ALBR #### [facility] [address] [place] [address] Dr. Yinka Flores Ketones Ql (U) Negative Normal NEGATIVE [facility] Comment on above: Performed By: #### M ALBR #### [facility] [address] [place] [address] Dr. Yinka Flores LEUKOCYTES Negative Normal NEGATIVE [facility] Comment on above: Performed By: #### M ALBR #### [facility] [address] [place] [address] Dr. Yinka Flores Nitrite Ql (U) Negative Normal NEGATIVE [facility] Comment on above: Performed By: #### M ALBR #### [facility] [address] [place] [address] Dr. Yinka Flores pH (U) 5.0 [pH] Normal 5-9 [facility] Comment on above: Performed By: #### M ALBR #### [facility] [address] [place] [address] Dr. Yinka Flores SPEC GRAVITY 1.020 Normal 1.005-<=1.025 [facility] Comment on above: Performed By: #### M ALBR #### [facility] [address] [place] [address] Dr. Yinka Flores UA PROTEIN Negative Normal NEGATIVE/ TRACE [facility] Comment on above: Performed By: #### M ALBR #### [facility] [address] [place] [address] Dr. Yinka Flores UR MICRO IND NOT INDICATED Normal [facility] Comment on above: Performed By: #### M ALBR #### [facility] [address] [place] [address] Dr. Yinka Flores Urobilinogen Qn (U) 0.2 {Richi'U}/dL Normal 0.2 - 1. 0 [facility] Comment on above: Performed By: #### M ALBR #### [facility] [address] [place] [address] Dr. Yinka Flores LACTATE/LACTIC ACIDon 2021 Lactate [Moles/Vol] 1.4 mmol/L Normal 0.4-1.9 [facility] Comment on above: Performed By: #### L ACT #### [facility] [address] [place] [address] Dr. Yinka Flores LIPASEon 11-21-2021 Lipase [Catalytic activity/Vol] 262.0 U/L Normal 73.0-393.0 [facility] Comment on above: Performed By: #### M ALBR #### [facility] [address] [place] [address] Dr. Yinka Flores PROF 14(COMP METB)on 022 Albumin [Mass/Vol] 3.3 g/dL Critically low 3.4-5.0 [facility] Comment on above: Performed By: #### M ALBR #### [facility] [address] [place] [address] Dr. Yinka Flores Albumin/Globulin [Mass ratio] 0.7 {ratio} Normal [facility] Comment on above: Performed By: #### M ALBR #### [facility] [address] [place] [address] Dr. Yinka Flores ALP [Catalytic activity/Vol] 187 U/L Critically high 46-116 [facility] Comment on above: Performed By: #### M ALBR #### [facility] [address] [place] [address] Dr. Yinka Flores ALT [Catalytic activity/Vol] 50 U/L Normal 16-63 [facility] Comment on above: Performed By: #### M ALBR #### [facility] [address] [place] [address] Dr. Yinka Flores Anion gap [Moles/Vol] 11.5 mmol/L Normal [facility] Comment on above: Performed By: #### M ALBR #### [facility] [address] [place] [address] Dr. Yinka Flores AST [Catalytic activity/Vol] 33 U/L Normal 15-37 [facility] Comment on above: Performed By: #### M ALBR #### [facility] [address] [address] [address] Yinka Flores Bilirubin [Mass/Vol] 0.4 mg/dL Normal 0.2-1.0 [facility] Comment on above: Performed By: #### M ALBR #### [facility] [address] [address] [address] Yinka Flores Calcium [Mass/Vol] 8.8 mg/dL Normal 8.5-10.1 [facility] Comment on above: Performed By: #### M ALBR #### [facility] [address] [address] [address] Yinka Flores Chloride [Moles/Vol] 100 mmol/L Normal 98-107 [facility] Comment on above: Performed By: #### M ALBR #### [facility] [address] [place] [address] Dr. Yinka Flores CO2 [Moles/Vol] 26.7 mmol/L Normal 21.0-32.0 [facility] Comment on above: Performed By: #### M ALBR #### [facility] [address] [place] [address] Dr. Yinka Flores Creatinine [Mass/Vol] 0.91 mg/dL Normal 0.70-1.30 [facility] Comment on above: Performed By: #### M ALBR #### [facility] [address] [place] [address] Dr. Yinka Flores EGFR-AF NAURUAN >60 Normal >=60 [facility] Comment on above: Performed By: #### M ALBR #### [facility] [address] [address] [address] Yinka Flores EGFR-NON AF NAURUAN >60 Normal >=60 [facility] Comment on above: Performed By: #### M ALBR #### [facility] [address] [place] [address] Dr. Yinka Flores Globulin (S) [Mass/Vol] 5.0 g/dL Normal [facility] Comment on above: Performed By: #### M ALBR #### [facility] [address] [address] [address] Yinka Flores Glucose [Mass/Vol] 379 mg/dL Critically high 74-106 [facility] Comment on above: Performed By: #### M ALBR #### [facility] [address] [address] [address] Yinka Flores Potassium [Moles/Vol] 4.2 mmol/L Normal 3.5-5.1 [facility] Comment on above: Performed By: #### M ALBR #### [facility] [address] [address] [address] Yinka Flores Protein [Mass/Vol] 8.3 g/dL Critically high 6.4-8.2 [facility] Comment on above: Performed By: #### M ALBR #### [facility] [address] [address] [address] Yinka Flores Sodium [Moles/Vol] 134 mmol/L Critically low 136-145 [facility] Comment on above: Performed By: #### M ALBR #### [facility] [address] [address] [address] Yinka Flores Urea nitrogen [Mass/Vol] 19.0 mg/dL Critically high 7.0-18.0 [facility] Comment on above: Performed By: #### M ALBR #### [facility] [address] [address] [address] Yinka Flores Urea nitrogen/Creatinine [Mass ratio] 20.9 mg/mg Normal [facility] Comment on above: Performed By: #### M ALBR #### [facility] [address] [address] [address] Yinka Flores PROTIMEon 11-21-2021 INR Coag (PPP) [Relative time] 1.01 {INR} Normal [facility] Comment on above: Performed By: #### M ALBR #### [facility] [address] [address] [address] Yinka Flores INR GUIDELINES SEE BELOW Normal [facility] Comment on above: Result Comment: JAMEE RED INR: 2.0 - 3.0 CONDITIONS NOT LISTED BELOW 2.5 - 3.5 FOR PROSTHETIC HEART VALVE REPLACEMENT 2.5 - 3.5 RECURRENT THROMBOSIS Performed By: #### M ALBR #### [facility] [address] [place] [address] Dr. Yinka Flores PT Coag (PPP) [Time] 10.9 s Normal 9.0-11.6 [facility] Comment on above: Performed By: #### M ALBR #### [facility] [address] [place] [address] Dr. Yinka Flores PTTon 11-21-2021 aPTT Coag (Bld) [Time] 26.2 s Normal 22.3-36.[address] [facility] Comment on above: Performed By: #### M ALBR #### [facility] [address] [place] [address] Dr. Yinka Flores CBC AUTO DIFFon 09-05-2021 BASO # 0.1 103/ul Normal 0.0-0.1 [facility] Comment on above: Performed By: #### C BC #### [facility] [address] [place] [address] Dr. Yinka Flores Basophils/100 WBC (Bld) 0.7 % Normal 0.2-2.0 [facility] Comment on above: Performed By: #### C BC #### [facility] [address] [place] [address] Dr. Yinka Flores EO # 0.4 103/ul Normal 0.0-0.[address] [facility] Comment on above: Performed By: #### C BC #### [facility] [address] [place] [address] Dr. Yinka Flores Eosinophils/100 WBC (Bld) 4.9 % Normal 0.9-7.[address] [facility] Comment on above: Performed By: #### C BC #### [facility] [address] [place] [address] Dr. Yinka Flores Erythrocyte distribution width (RBC) [Ratio] 14.4 % Normal 11.0-15.[address] [facility] Comment on above: Performed By: #### C BC #### [facility] [address] [place] [address] Dr. Yinka Flores Hematocrit (Bld) [Volume fraction] 43.5 % Normal 42.0-54.0 [facility] Comment on above: Performed By: #### C BC #### [facility] [address] [place] [address] Dr. Yinka Flores Hemoglobin (Bld) [Mass/Vol] 14.4 g/dL Normal 14.0-18.[address] [facility] Comment on above: Performed By: #### C BC #### [facility] [address] [place] [address] Dr. Yinka Flores IG # 0.03 10e3/ul Normal 0.00-0.03 [facility] Comment on above: Performed By: #### C BC #### [facility] [address] [place] [address] Dr. Yinka Flores IG % 0.4 % Normal 0.0-0.5 [facility] Comment on above: Performed By: #### C BC #### [facility] [address] [place] [address] Dr. Yinka Flores LYMPH # 1.9 103/ul Normal 1.2-3.[address] [facility] Comment on above: Performed By: #### C BC #### [facility] [address] [place] [address] Dr. Yinka Flores Lymphocytes/100 WBC (Bld) 23.5 % Normal 20.5-60.0 [facility] Comment on above: Performed By: #### C BC #### [facility] [address] [place] [address] Dr. Yinka Flores MANUAL DIFF REQ NO Normal [facility] Comment on above: Performed By: #### C BC #### [facility] [address] [place] [address] Dr. Yinka Flores MCH (RBC) [Entitic mass] 26.3 pg Normal 25.9-34.0 [facility] Comment on above: Performed By: #### C BC #### [facility] [address] [place] [address] Dr. Yinka Flores MCHC (RBC) [Mass/Vol] 33.1 g/dL Normal 29.9-35.2 [facility] Comment on above: Performed By: #### C BC #### [facility] [address] [address] [address] Yinka Flores MCV (RBC) [Entitic vol] 79.5 fL Critically low 80.0-94.0 [facility] Comment on above: Performed By: #### C BC #### [facility] [address] [address] [address] Yinka Flores MONO # 0.6 103/ul Normal 0.3-0.8 [facility] Comment on above: Performed By: #### C BC #### [facility] [address] [place] [address] Dr. Yinka Flores Monocytes/100 WBC (Bld) 7.0 % Normal 1.7-12.0 [facility] Comment on above: Performed By: #### C BC #### [facility] [address] [place] [address] Dr. Yinka Flores NEUT # 5.2 103/ul Normal 1.4-6.5 [facility] Comment on above: Performed By: #### C BC #### [facility] [address] [place] [address] Dr. Yinka Flores Neutrophils/100 WBC (Bld) 63.5 % Normal 43.0-75.0 [facility] Comment on above: Performed By: #### C BC #### [facility] [address] [place] [address] Dr. Yinka Flores Platelet mean volume (Bld) [Entitic vol] 11.0 fL Normal 9.5-13.[address] [facility] Comment on above: Performed By: #### C BC #### [facility] [address] [place] [address] Dr. Yinka Flores PLT 263 103/ul Normal 150-[address] [facility] Comment on above: Performed By: #### C BC #### [facility] [address] [place] [address] Dr. Yinka Flores RBC 5.47 106/ul Normal 4.70-6.10 [facility] Comment on above: Performed By: #### C BC #### [facility] [address] [place] [address] Dr. Yinka Flores WBC 8.1 103/ul Normal 4.0-11.0 [facility] Comment on above: Performed By: #### C BC #### [facility] [address] [place] [address] Dr. Yinka Flores GLYCOHEMOGLOBIN A1Con 2021 ADA RECOMMENDATION ADA THERAPEUTIC TARG ET 6.0 - 7.0 ACTION SUGGESTED > 7.0 Normal [facility] Comment on above: Performed By: #### A 1C #### [facility] [address] [place] [address] Dr. Yinka Flores Glucose [Mass/Vol] 272 mg/dL Normal [facility] Comment on above: Performed By: #### A 1C #### [facility] [address] [place] [address] Dr. Yinka Flores HbA1c (Bld) [Mass fraction] 11.1 % Critically high <=6.0 [facility] Comment on above: Performed By: #### A 1C #### [facility] [address] [place] [address] Dr. Yinka Flores LIPID PROFILEon 09-05-2021 CHOL-HDL RATIO NORM SEE BELOW Normal [facility] Comment on above: Result Comment: 3.3 - 4.4 LOW RISK 4.4 - 7.1 AVERAGE RISK 7.1 - 11.0 MODERATE RISK >11.0 HIGH RISK Performed By: #### M ALBR #### [facility] [address] [place] [address] Dr. Yinka Flores Cholesterol [Mass/Vol] 218 mg/dL Critically high <=200 [facility] Comment on above: Performed By: #### M ALBR #### [facility] [address] [place] [address] Dr. Yinka Flores Cholesterol in HDL [Mass/Vol] 34 mg/dL Critically low 40-60 [facility] Comment on above: Performed By: #### M ALBR #### [facility] [address] [address] [address] Yinka Flores Cholesterol in LDL [Mass/Vol] 111.0 mg/dL Normal [facility] Comment on above: Performed By: #### M ALBR #### [facility] [address] [address] [address] Yinka Flores Cholesterol.total/Cho lesterol in HDL [Mass ratio] 6.4 {ratio} Normal [facility] Comment on above: Performed By: #### M ALBR #### [facility] [address] [address] [address] Yinka Flores HDL NORMAL > or = 60 mg/dl - LO W CARDIOVASCULAR RISK <40 mg/dl - HIGH CARDIOVASCULAR RISK Normal [facility] Comment on above: Performed By: #### M ALBR #### [facility] [address] [place] [address] Dr. Yinka Flores LDL CALC NORMAL SEE BELOW Normal [facility] Comment on above: Result Comment: <100 mg/dl OPTIMAL 100 - 129 mg/dl NEAR OR ABOVE OPTIMAL 130 - 159 mg/dl BORDERLINE HIGH 160 - 189 mg/dl HIGH >190 mg/dl VERY HIGH Performed By: #### M ALBR #### [facility] [address] [place] [address] Dr. Yinka Flores Triglyceride [Mass/Vol] 365 mg/dL Critically high <=150 [facility] Comment on above: Performed By: #### M ALBR #### [facility] [address] [place] [address] Dr. Yinka Flores VLDL CALC 73.0 mg/dL Normal [facility] Comment on above: Performed By: #### M ALBR #### [facility] [address] [address] [address] Yinka Flores MICROALBUMIN, RAND URon 08-09 0 mALB 2.4 mg/L Normal <=30.0 [facility] Comment on above: Performed By: #### M ALBR #### [facility] [address] [place] [address] Dr. Yinka Flores PROF 14(COMP METB)on 022 Albumin [Mass/Vol] 3.5 g/dL Normal 3.4-5.0 [facility] Comment on above: Performed By: #### M ALBR #### [facility] [address] [place] [address] Dr. Yinka Flores Albumin/Globulin [Mass ratio] 0.7 {ratio} Normal [facility] Comment on above: Performed By: #### M ALBR #### [facility] [address] [address] [address] Yinka Flores ALP [Catalytic activity/Vol] 176 U/L Critically high 46-116 [facility] Comment on above: Performed By: #### M ALBR #### [facility] [address] [place] [address] Dr. Yinka Flores ALT [Catalytic activity/Vol] 48 U/L Normal 16-63 [facility] Comment on above: Performed By: #### M ALBR #### [facility] [address] [place] [address] Dr. Yinka Flores Anion gap [Moles/Vol] 12.8 mmol/L Normal [facility] Comment on above: Performed By: #### M ALBR #### [facility] [address] [place] [address] Dr. Yinka Flores AST [Catalytic activity/Vol] 19 U/L Normal 15-37 [facility] Comment on above: Performed By: #### M ALBR #### [facility] [address] [place] [address] Dr. Yinka Flores Bilirubin [Mass/Vol] 0.4 mg/dL Normal 0.2-1.3 [facility] Comment on above: Performed By: #### M ALBR #### [facility] [address] [place] [address] Dr. Yinka Flores Calcium [Mass/Vol] 8.8 mg/dL Normal 8.5-10.1 [facility] Comment on above: Performed By: #### M ALBR #### [facility] [address] [place] [address] Dr. Yinka Flores Chloride [Moles/Vol] 99 mmol/L Normal 98-107 [facility] Comment on above: Performed By: #### M ALBR #### [facility] [address] [address] [address] Yinka Flores CO2 [Moles/Vol] 25.3 mmol/L Normal 22.0-30.0 [facility] Comment on above: Performed By: #### M ALBR #### [facility] [address] [place] [address] Dr. Yinka Flores Creatinine [Mass/Vol] 0.71 mg/dL Normal 0.66-1.25 [facility] Comment on above: Performed By: #### M ALBR #### [facility] [address] [place] [address] Dr. Yinka Flores EGFR-AF NAURUAN >60 Normal >=60 [facility] Comment on above: Performed By: #### M ALBR #### [facility] [address] [place] [address] Dr. Yinka Flores EGFR-NON AF NAURUAN >60 Normal >=60 [facility] Comment on above: Performed By: #### M ALBR #### [facility] [address] [place] [address] Dr. Yinka Flores Globulin (S) [Mass/Vol] 4.9 g/dL Normal [facility] Comment on above: Performed By: #### M ALBR #### [facility] [address] [place] [address] Dr. Yinka Flores Glucose [Mass/Vol] 394 mg/dL Critically high 74-106 [facility] Comment on above: Performed By: #### M ALBR #### [facility] [address] [place] [address] Dr. Yinka Flores Potassium [Moles/Vol] 4.1 mmol/L Normal 3.4-5.0 [facility] Comment on above: Performed By: #### M ALBR #### [facility] [address] [place] [address] Dr. Yinka Flores Protein [Mass/Vol] 8.4 g/dL Critically high 6.1-8.2 [facility] Comment on above: Performed By: #### M ALBR #### [facility] [address] [address] [address] Yinka Flores Sodium [Moles/Vol] 133 mmol/L Critically low 137-145 [facility] Comment on above: Performed By: #### M ALBR #### [facility] [address] [address] [address] Yinka Flores Urea nitrogen [Mass/Vol] 12.0 mg/dL Normal 7.0-18.0 [facility] Comment on above: Performed By: #### M ALBR #### [facility] [address] [address] [address] Yinka Flores Urea nitrogen/Creatinine [Mass ratio] 16.9 mg/mg Normal [facility] Comment on above: Performed By: #### M ALBR #### [facility] [address] [place] [address] Dr. Yinka Flores UA RANDOM W/MICROSCOPICon BACTERIA NONE SEEN Normal NONE SEEN [facility] Comment on above: Performed By: #### U AMIC #### [facility] [address] [place] [address] Dr. Yinka Flores Bilirubin Ql (U) Negative Normal NEGATIVE [facility] Comment on above: Performed By: #### U AMIC #### [facility] [address] [place] [address] Dr. Yinka Flores CAST NONE SEEN Normal NONE SEEN [facility] Comment on above: Performed By: #### U AMIC #### [facility] [address] [place] [address] Dr. Yinka Flores Clarity (U) CLEAR Normal CLEAR [facility] Comment on above: Performed By: #### U AMIC #### [facility] [address] [place] [address] Dr. Yinka Flores Color (U) LT. YELLOW Normal YELLOW [facility] Comment on above: Performed By: #### U AMIC #### [facility] [address] [place] [address] Dr. Yinka Flores Crystals LM Nom (Urine sed) NONE SEEN Normal NONE SEEN [facility] Comment on above: Performed By: #### U AMIC #### [facility] [address] [address] [address] Yinka Flores Epithelial cells LM Ql (Urine sed) RARE Normal NONE SEEN /RARE [facility] Comment on above: Performed By: #### U AMIC #### [facility] [address] [address] [address] Yinak Flores Glucose Ql (U) >1000 Abnormal NEGATIVE [facility] Comment on above: Performed By: #### U AMIC #### [facility] [address] [address] [address] Yinka Flores Hemoglobin Ql (U) Negative Normal NEGATIVE The [facility] Comment on above: Performed By: #### U AMIC #### [facility] [address] [place] [address] Dr. Yinka Flores Ketones Ql (U) TRACE Abnormal NEGATIVE [facility] Comment on above: Performed By: #### U AMIC #### [facility] [address] [place] [address] Dr. Yinka Flores LEUKOCYTES Negative Normal NEGATIVE [facility] Comment on above: Performed By: #### U AMIC #### [facility] [address] [address] [address] Yinka Flores MUCOUS NONE SEEN Normal NONE SEEN [facility] Comment on above: Performed By: #### U AMIC #### [facility] [address] [address] [address] Yinka Flores Nitrite Ql (U) Negative Normal NEGATIVE [facility] Comment on above: Performed By: #### U AMIC #### [facility] [address] [address] [address] Yinka Flores pH (U) 5.5 [pH] Normal 5-[address] [facility] Comment on above: Performed By: #### U AMIC #### [facility] [address] [place] [address] Dr. Yinka Flores RBC 0-2 Normal 0-[address] [facility] Comment on above: Performed By: #### U AMIC #### [facility] [address] [address] [address] Yinka Flores SPEC GRAVITY 1.010 Normal 1.005-<=1.025 [facility] Comment on above: Performed By: #### U AMIC #### [facility] [address] [address] [address] Yinka Flores UA PROTEIN Negative Normal NEGATIVE/ TRACE [facility] Comment on above: Performed By: #### U AMIC #### [facility] [address] [address] [address] Yinka Flores Urobilinogen Qn (U) 0.2 {Richi'U}/dL Normal 0.2 - 1. [address] [facility] Comment on above: Performed By: #### U AMIC #### [facility] [address] [address] [address] Yinka Flores WBC NONE SEEN Normal NONE SEEN [facility] Comment on above: Performed By: #### U AMIC #### [facility] [address] [address] [address] Yinka Flores ECHOon 09-03-2021 [facility] LVEF TRANSTHORACIC ECHOon LV Ejection Fraction 61 % [facility] Vital Signs Date Time Vital Sign Value Performing Clinician Facility 08-11-2024 08:30-0500 Body height 177.8 cm Buffy Chung HAT BLOCKING MACHINE OPERATOR Work Phone: [facility] 08-11-2024 08:30-0500 Body mass index (BMI) [Ratio] 37.77 kg/m2 Buffy Chung HAT BLOCKING MACHINE OPERATOR Work Phone: [facility] 08-11-2024 08:30-0500 Body temperature 98.1 [degF] Buffy Chung HAT BLOCKING MACHINE OPERATOR Work Phone: [facility] 08-11-2024 08:30-0500 Body weight 119.39 kg Buffy Chung HAT BLOCKING MACHINE OPERATOR Work Phone: [facility] 08-11-2024 08:30-0500 Diastolic blood pressure 82 mm[Hg] Buffy Chung HAT BLOCKING MACHINE OPERATOR Work Phone: [facility] 08-11-2024 08:30-0500 Heart rate 65 /min Buffy Chung HAT BLOCKING MACHINE OPERATOR Work Phone: [facility] 08-11-2024 08:30-0500 Respiratory rate 18 /min Buffy Chung HAT BLOCKING MACHINE OPERATOR Work Phone: [facility] 08-11-2024 08:30-0500 SaO2% (BldA) [Mass fraction] 96 % Buffy Chung HAT BLOCKING MACHINE OPERATOR Work Phone: [facility] 08-11-2024 08:30-0500 Systolic blood pressure 124 mm[Hg] Buffy Chung HAT BLOCKING MACHINE OPERATOR Work Phone: [facility] 08-04-2024 10:53-0500 Body height 177.8 cm Pm 1 [facility] 08-04-2024 10:53-0500 Body mass index (BMI) [Ratio] 36.73 kg/m2 Pm 1 [facility] 08-04-2024 10:53-0500 Body weight 116.12 kg Pm 1 [facility] 08-02-2024 08:06-0500 Body height 177.8 cm Zoie Hernandez HAT BLOCKING MACHINE OPERATOR Work Phone: [facility] 08-02-2024 08:06-0500 Body mass index (BMI) [Ratio] 36.73 kg/m2 Zoie Hernandez HAT BLOCKING MACHINE OPERATOR Work Phone: [facility] 08-02-2024 08:06-0500 Body weight 116.12 kg Zoie Hernandez HAT BLOCKING MACHINE OPERATOR Work Phone: [facility] 07-22-2024 10:48-0500 Body mass index (BMI) [Ratio] 37.13 kg/m2 Erin Chapman WREATH INSPECTOR-NETWORK INTELLIGENCE ANALYST Work Phone: [facility] 07-22-2024 10:48-0500 Body weight 117.39 kg Erin Chapman WREATH INSPECTOR-NETWORK INTELLIGENCE ANALYST Work Phone: [facility] 07-22-2024 10:48-0500 Diastolic blood pressure 70 mm[Hg] Erin Chapman WREATH INSPECTOR-NETWORK INTELLIGENCE ANALYST Work Phone: [facility] 07-22-2024 10:48-0500 Heart rate 68 /min Erin Chapman WREATH INSPECTOR-NETWORK INTELLIGENCE ANALYST Work Phone: [facility] 07-22-2024 10:48-0500 Systolic blood pressure 135 mm[Hg] Erin Chapman WREATH INSPECTOR-NETWORK INTELLIGENCE ANALYST Work Phone: [facility] 06-16-2024 09:52-0500 Body height 179.5 cm William Howell MD, PhD Work Phone: [facility] 06-16-2024 09:52-0500 Body mass index (BMI) [Ratio] 36 kg/m2 William Howell MD, PhD Work Phone: [facility] 06-16-2024 09:52-0500 Body temperature 98.01 [degF] William Howell MD, PhD Work Phone: [facility] 06-16-2024 09:52-0500 Body weight 116 kg William Howell MD, PhD Work Phone: [facility] 06-16-2024 09:52-0500 Diastolic blood pressure 79 mm[Hg] William Howell MD, PhD Work Phone: [facility] Comment on above: Left arm sitting 06-16-2024 09:52-0500 Heart rate 73 /min William Howell MD, PhD Work Phone: [facility] 06-16-2024 09:52-0500 Respiratory rate 16 /min William Howell MD, PhD Work Phone: [facility] 06-16-2024 09:52-0500 SaO2% (BldA) [Mass fraction] 98 % William Howell MD, PhD Work Phone: [facility] 06-16-2024 09:52-0500 Systolic blood pressure 144 mm[Hg] William Howell MD, PhD Work Phone: [facility] Comment on above: Left arm sitting 05-31-2024 15:37-0500 Body height 179.1 cm Buffy Curtisz HAT BLOCKING MACHINE OPERATOR Work Phone: [facility] 05-31-2024 15:37-0500 Body mass index (BMI) [Ratio] 36.18 kg/m2 Buffy Aichholz HAT BLOCKING MACHINE OPERATOR Work Phone: [facility] 05-31-2024 15:37-0500 Body temperature 98.1 [degF] Buffy Aichholz HAT BLOCKING MACHINE OPERATOR Work Phone: [facility] 05-31-2024 15:37-0500 Body weight 116.03 kg Buffy Aichholz HAT BLOCKING MACHINE OPERATOR Work Phone: [facility] 05-31-2024 15:37-0500 Diastolic blood pressure 80 mm[Hg] Buffy Aichholz HAT BLOCKING MACHINE OPERATOR Work Phone: [facility] 05-31-2024 15:37-0500 Heart rate 69 /min Buffy Aichholz HAT BLOCKING MACHINE OPERATOR Work Phone: [facility] 05-31-2024 15:37-0500 Respiratory rate 18 /min Buffy Aichholz HAT BLOCKING MACHINE OPERATOR Work Phone: [facility] 05-31-2024 15:37-0500 SaO2% (BldA) [Mass fraction] 96 % Buffy Aichholz HAT BLOCKING MACHINE OPERATOR Work Phone: [facility] 05-31-2024 15:37-0500 Systolic blood pressure 120 mm[Hg] Buffy Aichholz HAT BLOCKING MACHINE OPERATOR Work Phone: [facility] 04-27-2024 15:26-0500 Diastolic blood pressure 90 mm[Hg] Buffy Aichholz HAT BLOCKING MACHINE OPERATOR Work Phone: [facility] 04-27-2024 15:26-0500 Systolic blood pressure 140 mm[Hg] Buffy Aichholz HAT BLOCKING MACHINE OPERATOR Work Phone: [facility] 04-27-2024 15:21-0500 Body height 179.1 cm Buffy Chung HAT BLOCKING MACHINE OPERATOR Work Phone: [facility] 04-27-2024 15:21-0500 Body mass index (BMI) [Ratio] 36.95 kg/m2 Buffy Chung HAT BLOCKING MACHINE OPERATOR Work Phone: [facility] 04-27-2024 15:21-0500 Body temperature 98.1 [degF] Buffy Chung HAT BLOCKING MACHINE OPERATOR Work Phone: [facility] 04-27-2024 15:21-0500 Body weight 118.48 kg Buffy Chung HAT BLOCKING MACHINE OPERATOR Work Phone: [facility] 04-27-2024 15:21-0500 Heart rate 66 /min Buffy Acevedolurdes HAT BLOCKING MACHINE OPERATOR Work Phone: [facility] 04-27-2024 15:21-0500 Respiratory rate 20 /min Buffy Chung HAT BLOCKING MACHINE OPERATOR Work Phone: [facility] 04-27-2024 15:21-0500 SaO2% (BldA) [Mass fraction] 97 % Buffy Chung HAT BLOCKING MACHINE OPERATOR Work Phone: [facility] 04-16-2024 15:36-0500 Body height 177.8 cm Kylee Dalal APRN.NETWORK INTELLIGENCE ANALYST Work Phone: [facility] 04-16-2024 15:36-0500 Body mass index (BMI) [Ratio] 36.98 kg/m2 Kylee Dalal APRN.NETWORK INTELLIGENCE ANALYST Work Phone: [facility] 04-16-2024 15:36-0500 Body weight 116.9 kg Kylee Dalal APRN.NETWORK INTELLIGENCE ANALYST Work Phone: [facility] 04-16-2024 15:36-0500 Diastolic blood pressure 77 mm[Hg] Kylee Dalal APRN.NETWORK INTELLIGENCE ANALYST Work Phone: [facility] 04-16-2024 15:36-0500 Heart rate 79 /min Kylee Dalal APRN.NETWORK INTELLIGENCE ANALYST Work Phone: [facility] 04-16-2024 15:36-0500 SaO2% (BldA) [Mass fraction] 98 % Kylee Dalal WREATH INSPECTOR.NETWORK INTELLIGENCE ANALYST Work Phone: [facility] 04-16-2024 15:36-0500 Systolic blood pressure 121 mm[Hg] Kylee Dalal WREATH INSPECTOR.NETWORK INTELLIGENCE ANALYST Work Phone: [facility] 03-19-2024 10:00-0400 Diastolic blood pressure 88 mm[Hg] Rafael Maravilla MD Work Phone: [facility] 03-19-2024 10:00-0400 Heart rate 69 /min Rafael Maravilla MD Work Phone: [facility] 03-19-2024 10:00-0400 SaO2% (BldA) [Mass fraction] 96 % Rafael Maravilla MD Work Phone: [facility] 03-19-2024 10:00-0400 Systolic blood pressure 150 mm[Hg] Rafael Maravilla MD Work Phone: [facility] 03-19-2024 07:31-0400 Body temperature 97 [degF] Rafael Maravilla MD Work Phone: [facility] 03-19-2024 07:31-0400 Respiratory rate 18 /min Rafael Maravilla MD Work Phone: [facility] 03-17-2024 11:32-0400 Body mass index (BMI) [Ratio] 37.36 kg/m2 William Howell MD, PhD Work Phone: [facility] 03-17-2024 11:32-0400 Body temperature 97.2 [degF] William Howell MD, PhD Work Phone: [facility] 03-17-2024 11:32-0400 Body weight 118.1 kg William Howell MD, PhD Work Phone: [facility] 03-17-2024 11:32-0400 Diastolic blood pressure 83 mm[Hg] William Howell MD, PhD Work Phone: [facility] 03-17-2024 11:32-0400 Heart rate 73 /min William Howell MD, PhD Work Phone: [facility] 03-17-2024 11:32-0400 Respiratory rate 20 /min William Howell MD, PhD Work Phone: [facility] 03-17-2024 11:32-0400 SaO2% (BldA) [Mass fraction] 96 % William Howell MD, PhD Work Phone: [facility] 03-17-2024 11:32-0400 Systolic blood pressure 156 mm[Hg] William Howell MD, PhD Work Phone: [facility] 03-03-2024 15:46-0400 Body height 179.1 cm Buffy Chung HAT BLOCKING MACHINE OPERATOR Work Phone: [facility] 03-03-2024 15:46-0400 Body mass index (BMI) [Ratio] 36.64 kg/m2 Buffy Chung HAT BLOCKING MACHINE OPERATOR Work Phone: [facility] 03-03-2024 15:46-0400 Body temperature 98.1 [degF] Buffy Chung HAT BLOCKING MACHINE OPERATOR Work Phone: [facility] 03-03-2024 15:46-0400 Body weight 117.48 kg Buffy Chung HAT BLOCKING MACHINE OPERATOR Work Phone: [facility] 03-03-2024 15:46-0400 Diastolic blood pressure 80 mm[Hg] Buffy Chung HAT BLOCKING MACHINE OPERATOR Work Phone: [facility] 03-03-2024 15:46-0400 Heart rate 95 /min Buffy Chung HAT BLOCKING MACHINE OPERATOR Work Phone: [facility] 03-03-2024 15:46-0400 Respiratory rate 19 /min Buffy Chung HAT BLOCKING MACHINE OPERATOR Work Phone: [facility] 03-03-2024 15:46-0400 SaO2% (BldA) [Mass fraction] 96 % Buffy Juliet HAT BLOCKING MACHINE OPERATOR Work Phone: [facility] 03-03-2024 15:46-0400 Systolic blood pressure 126 mm[Hg] Buffy Juliet HAT BLOCKING MACHINE OPERATOR Work Phone: [facility] 12-24-2023 09:19-0400 Body mass index (BMI) [Ratio] 37.93 kg/m2 Georgiana Menard WREATH INSPECTOR.NETWORK INTELLIGENCE ANALYST Work Phone: [facility] 12-24-2023 09:19-0400 Body temperature 98.2 [degF] Georgiana Menard APRN.NETWORK INTELLIGENCE ANALYST Work Phone: [facility] 12-24-2023 09:19-0400 Body weight 119.9 kg Georgiana Menard APRN.NETWORK INTELLIGENCE ANALYST Work Phone: [facility] Comment on above: shoes on 12-24-2023 09:19-0400 Diastolic blood pressure 67 mm[Hg] Georgiana Menard APRN.NETWORK INTELLIGENCE ANALYST Work Phone: [facility] 12-24-2023 09:19-0400 Heart rate 60 /min Georgiana Menard APRN.NETWORK INTELLIGENCE ANALYST Work Phone: [facility] 12-24-2023 09:19-0400 Respiratory rate 18 /min Georgiana Menard APRN.NETWORK INTELLIGENCE ANALYST Work Phone: [facility] 12-24-2023 09:19-0400 SaO2% (BldA) [Mass fraction] 96 % Georgiana Menard APRN.NETWORK INTELLIGENCE ANALYST Work Phone: [facility] 12-24-2023 09:19-0400 Systolic blood pressure 143 mm[Hg] Georgiana Menard APRN.NETWORK INTELLIGENCE ANALYST Work Phone: [facility] 10-29-2023 16:06-0400 Body height 177.8 cm Yan Durham MD Work Phone: [employer] 10-29-2023 16:06-0400 Body mass index (BMI) [Ratio] 38.31 kg/m2 Yan Durham MD Work Phone: [employer] 10-29-2023 16:06-0400 Body weight 121.11 kg Yan Durham MD Work Phone: [employer] 10-29-2023 16:06-0400 Diastolic blood pressure 76 mm[Hg] Yan Durham MD Work Phone: [employer] 10-29-2023 16:06-0400 Heart rate 67 /min Yan Durham MD Work Phone: [employer] 10-29-2023 16:06-0400 SaO2% (BldA) [Mass fraction] 96 % Yan Durham MD Work Phone: [employer] 10-29-2023 16:06-0400 Systolic blood pressure 142 mm[Hg] Yan Durham MD Work Phone: [facility] 10-01-2023 09:17-0400 Body mass index (BMI) [Ratio] 38.02 kg/m2 William Howell MD, PhD Work Phone: [facility] 10-01-2023 09:17-0400 Body temperature 96.8 [degF] William Howell MD, PhD Work Phone: [facility] 10-01-2023 09:17-0400 Body weight 120.2 kg William Howell MD, PhD Work Phone: [facility] Comment on above: shoes on 10-01-2023 09:17-0400 Diastolic blood pressure 70 mm[Hg] William Howell MD, PhD Work Phone: [facility] 10-01-2023 09:17-0400 Heart rate 59 /min William Howell MD, PhD Work Phone: [facility] Comment on above: provider notified 10-01-2023 09:17-0400 Respiratory rate 18 /min William Howell MD, PhD Work Phone: [facility] 10-01-2023 09:17-0400 SaO2% (BldA) [Mass fraction] 10 % William Howell MD, PhD Work Phone: [facility] 10-01-2023 09:17-0400 Systolic blood pressure 143 mm[Hg] William Howell MD, PhD Work Phone: [facility] 08-29-2023 07:50-0400 Body weight 122 kg Kylee Dalal WREATH INSPECTOR.NETWORK INTELLIGENCE ANALYST Work Phone: [facility] 08-29-2023 07:50-0400 Diastolic blood pressure 62 mm[Hg] Kylee Dalal WREATH INSPECTOR.NETWORK INTELLIGENCE ANALYST Work Phone: [facility] 08-29-2023 07:50-0400 Heart rate 61 /min Kylee Dalal WREATH INSPECTOR.NETWORK INTELLIGENCE ANALYST Work Phone: [facility] 08-29-2023 07:50-0400 SaO2% (BldA) [Mass fraction] 97 % Kylee Dalal WREATH INSPECTOR.NETWORK INTELLIGENCE ANALYST Work Phone: [facility] 08-29-2023 07:50-0400 Systolic blood pressure 120 mm[Hg] Kylee Dalal WREATH INSPECTOR.NETWORK INTELLIGENCE ANALYST Work Phone: [facility] 07-09-2023 14:48-0500 Body temperature 97.59 [degF] William Howell MD, PhD Work Phone: [facility] 07-09-2023 14:48-0500 Body weight 124.9 kg William Howell MD, PhD Work Phone: [facility] 07-09-2023 14:48-0500 Diastolic blood pressure 73 mm[Hg] William Howell MD, PhD Work Phone: [facility] 07-09-2023 14:48-0500 Heart rate 71 /min William Howell MD, PhD Work Phone: [facility] 07-09-2023 14:48-0500 Respiratory rate 18 /min William Howell MD, PhD Work Phone: [facility] 07-09-2023 14:48-0500 SaO2% (BldA) [Mass fraction] 94 % William Howell MD, PhD Work Phone: [facility] 07-09-2023 14:48-0500 Systolic blood pressure 156 mm[Hg] William Howell MD, PhD Work Phone: [facility] 06-30-2023 09:54-0500 Body height 177.8 cm Yan Durham MD Work Phone: [facility] 06-30-2023 09:54-0500 Body mass index (BMI) [Ratio] 39.31 kg/m2 Yan Durham MD Work Phone: [facility] 06-30-2023 09:54-0500 Body weight 124.29 kg Yan Durham MD Work Phone: [facility] 06-30-2023 09:54-0500 Diastolic blood pressure 88 mm[Hg] Yan Durham MD Work Phone: [facility] 06-30-2023 09:54-0500 Heart rate 75 /min Yan Durham MD Work Phone: [facility] 06-30-2023 09:54-0500 SaO2% (BldA) [Mass fraction] 98 % Yan Durham MD Work Phone: [facility] 06-30-2023 09:54-0500 Systolic blood pressure 150 mm[Hg] Yan Durham MD Work Phone: [facility] 04-16-2023 11:49-0500 Body height 177.8 cm William Howell MD, PhD Work Phone: [facility] 04-16-2023 11:49-0500 Body temperature 97.81 [degF] William Howell MD, PhD Work Phone: [facility] 04-16-2023 11:49-0500 Body weight 126.1 kg William Howell MD, PhD Work Phone: [facility] 04-16-2023 11:49-0500 Diastolic blood pressure 89 mm[Hg] William Howell MD, PhD Work Phone: [facility] 04-16-2023 11:49-0500 Heart rate 74 /min William Howell MD, PhD Work Phone: [facility] 04-16-2023 11:49-0500 Respiratory rate 14 /min William Howell MD, PhD Work Phone: [facility] 04-16-2023 11:49-0500 SaO2% (BldA) [Mass fraction] 99 % William Howell MD, PhD Work Phone: [facility] 04-16-2023 11:49-0500 Systolic blood pressure 161 mm[Hg] William Howell MD, PhD Work Phone: [facility] 01-22-2023 09:32-0400 Body temperature 97.39 [degF] William Howell MD, PhD Work Phone: [facility] 01-22-2023 09:32-0400 Body weight 124.74 kg William Howell MD, PhD Work Phone: [facility] 01-22-2023 09:32-0400 Diastolic blood pressure 82 mm[Hg] William Howell MD, PhD Work Phone: [facility] 01-22-2023 09:32-0400 Heart rate 82 /min William Howell MD, PhD Work Phone: [facility] 01-22-2023 09:32-0400 Respiratory rate 18 /min William Howell MD, PhD Work Phone: [facility] 01-22-2023 09:32-0400 SaO2% (BldA) [Mass fraction] 99 % William Howell MD, PhD Work Phone: [facility] 01-22-2023 09:32-0400 Systolic blood pressure 151 mm[Hg] William Howell MD, PhD Work Phone: [facility] 10-30-2022 11:46-0400 Body temperature 98.4 [degF] William Howell MD, PhD Work Phone: [facility] 10-30-2022 11:46-0400 Body weight 124.29 kg William Howell MD, PhD Work Phone: [facility] 10-30-2022 11:46-0400 Diastolic blood pressure 78 mm[Hg] William Howell MD, PhD Work Phone: [facility] 10-30-2022 11:46-0400 Heart rate 61 /min William Howell MD, PhD Work Phone: [facility] 10-30-2022 11:46-0400 Respiratory rate 18 /min William Howell MD, PhD Work Phone: [facility] 10-30-2022 11:46-0400 SaO2% (BldA) [Mass fraction] 98 % William Howell MD, PhD Work Phone: [facility] 10-30-2022 11:46-0400 Systolic blood pressure 173 mm[Hg] William Howell MD, PhD Work Phone: [facility] 10-15-2022 13:44-0400 Body height 179.1 cm Kylee Dalal APRN.CNP Work Phone: [facility] 10-15-2022 13:44-0400 Body weight 124.29 kg Kylee Dalal WREATH INSPECTOR.NETWORK INTELLIGENCE ANALYST Work Phone: [facility] 10-15-2022 13:44-0400 Diastolic blood pressure 78 mm[Hg] Kylee Dalal WREATH INSPECTOR.NETWORK INTELLIGENCE ANALYST Work Phone: [facility] 10-15-2022 13:44-0400 Heart rate 72 /min Kylee Dalal WREATH INSPECTOR.NETWORK INTELLIGENCE ANALYST Work Phone: [facility] 10-15-2022 13:44-0400 Systolic blood pressure 134 mm[Hg] Kylee Dalal WREATH INSPECTOR.NETWORK INTELLIGENCE ANALYST Work Phone: [facility] 08-05-2022 09:38-0500 Body height 177.8 cm William Howell MD, PhD Work Phone: [facility] 08-05-2022 09:38-0500 Body temperature 98.1 [degF] William Howell MD, PhD Work Phone: [facility] 08-05-2022 09:38-0500 Body weight 126.1 kg William Howell MD, PhD Work Phone: [facility] 08-05-2022 09:38-0500 Diastolic blood pressure 85 mm[Hg] William Howell MD, PhD Work Phone: [facility] 08-05-2022 09:38-0500 Heart rate 62 /min William Howell MD, PhD Work Phone: [facility] 08-05-2022 09:38-0500 Respiratory rate 16 /min William Howell MD, PhD Work Phone: [facility] 08-05-2022 09:38-0500 SaO2% (BldA) [Mass fraction] 97 % William Howell MD, PhD Work Phone: [facility] 08-05-2022 09:38-0500 Systolic blood pressure 170 mm[Hg] William Howell MD, PhD Work Phone: [facility] 07-15-2022 15:50-0500 Body weight 128.82 kg Kylee Scot WREATH INSPECTOR.NETWORK INTELLIGENCE ANALYST Work Phone: [facility] 07-15-2022 15:50-0500 Diastolic blood pressure 80 mm[Hg] Kylee Scot WREATH INSPECTOR.NETWORK INTELLIGENCE ANALYST Work Phone: [facility] 07-15-2022 15:50-0500 Heart rate 72 /min Kylee Scot WREATH INSPECTOR.NETWORK INTELLIGENCE ANALYST Work Phone: [facility] 07-15-2022 15:50-0500 Systolic blood pressure 160 mm[Hg] Kylee Scot WREATH INSPECTOR.NETWORK INTELLIGENCE ANALYST Work Phone: [facility] 03-19-2022 12:08-0400 Body weight 120.66 kg Kylee Scot WREATH INSPECTOR.NETWORK INTELLIGENCE ANALYST Work Phone: [facility] 03-19-2022 12:08-0400 Diastolic blood pressure 90 mm[Hg] Kylee Scot WREATH INSPECTOR.NETWORK INTELLIGENCE ANALYST Work Phone: [facility] 03-19-2022 12:08-0400 Heart rate 68 /min Kylee Scot WREATH INSPECTOR.NETWORK INTELLIGENCE ANALYST Work Phone: [facility] 03-19-2022 12:08-0400 Systolic blood pressure 150 mm[Hg] Kylee Scot WREATH INSPECTOR.NETWORK INTELLIGENCE ANALYST Work Phone: [facility] 02-18-2022 11:11-0400 Body height 178.5 cm William Howell MD, PhD Work Phone: [facility] 02-18-2022 11:11-0400 Body temperature 97.5 [degF] William Howell MD, PhD Work Phone: [facility] 02-18-2022 11:11-0400 Body weight 121.75 kg William Howell MD, PhD Work Phone: [facility] 02-18-2022 11:11-0400 Diastolic blood pressure 93 mm[Hg] William Howell MD, PhD Work Phone: [facility] 02-18-2022 11:11-0400 Heart rate 62 /min William Howell MD, PhD Work Phone: [facility] 02-18-2022 11:11-0400 Respiratory rate 20 /min William Howell MD, PhD Work Phone: [facility] 02-18-2022 11:11-0400 SaO2% (BldA) [Mass fraction] 98 % Wililam Howell MD, PhD Work Phone: [facility] 02-18-2022 11:11-0400 Systolic blood pressure 154 mm[Hg] William Howell MD, PhD Work Phone: [facility] 11-26-2021 11:37-0400 Body temperature 97.2 [degF] William Howell MD, PhD Work Phone: [facility] 11-26-2021 11:37-0400 Body weight 124.24 kg William Howell MD, PhD Work Phone: [facility] 11-26-2021 11:37-0400 Diastolic blood pressure 88 mm[Hg] William Howell MD, PhD Work Phone: [facility] 11-26-2021 11:37-0400 Heart rate 58 /min William Howell MD, PhD Work Phone: [facility] 11-26-2021 11:37-0400 Respiratory rate 18 /min William Howell MD, PhD Work Phone: [facility] 11-26-2021 11:37-0400 SaO2% (BldA) [Mass fraction] 99 % William Howlel MD, PhD Work Phone: [facility] 11-26-2021 11:37-0400 Systolic blood pressure 150 mm[Hg] William Howell MD, PhD Work Phone: [facility] Encounters Encounter Date Encounter Type Care Provider Facility Start: 08-11-2024 End: 08-11-2024 Bamboo flowsheet Buffy Chung HAT BLOCKING MACHINE OPERATOR Work Phone: [facility] Start: 08-11-2024 End: 08-11-2024 Bamboo flowsheet Buffy Chung HAT BLOCKING MACHINE OPERATOR Work Phone: [facility] Start: 08-11-2024 End: 08-11-2024 Office outpatient visit 25 minutes Buffy Chung HAT BLOCKING MACHINE OPERATOR Work Phone: [facility] Comment on above: Type 2 diabetes aris itus with hyperglycemia, with long-term current use of insulin (CMS/HCC) (Primary Dx); Morbid (severe) obesity due to excess calories (CMS/HCC); Essential (primary) hypertension (CMS/HCC); Body mass index (BMI) 36.0-36.9, adult; 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); Chronic myeloid leukemia, BCR/ABL-positive, not having achieved remission (CMS/HCC); Type 2 diabetes mellitus with hyperglycemia (CMS/HCC); care home (current) use of insulin (CMS/HCC); Other hypertrophic cardiomyopathy (CMS/HCC); 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); Mixed hyperlipidemia (CMS/HCC); Obstructive sleep apnea (adult) (pediatric); Hypertrophic cardiomyopathy (CMS/HCC); LVH (left ventricular hypertrophy); Screening for prostate cancer; Primary hypertension (CMS/HCC) Start: 08-11-2024 End: 08-11-2024 Refill Buffy Chung HAT BLOCKING MACHINE OPERATOR Work Phone: [facility] Comment on above: Type 2 diabetes aris itus with hyperglycemia, with long-term current use of insulin (CMS/HCC) Start: 08-05-2024 End: 08-05-2024 ambulatory [facility] Pat Phone Call Provider 1 [facility] - Pre Admit Start: 08-04-2024 End: 08-04-2024 ambulatory BUFFY CHUNG [facility] Start: 08-02-2024 End: 08-02-2024 Bamboo flowsheet Zoie Hernandez HAT BLOCKING MACHINE OPERATOR Work Phone: [facility] Start: 08-02-2024 End: 08-02-2024 Bamboo flowsheet Zoie Hernandez HAT BLOCKING MACHINE OPERATOR Work Phone: [facility] Start: 08-02-2024 End: 08-02-2024 ambulatory ZOIE HERNANDEZ Not Available Start: 08-02-2024 End: 08-02-2024 Patient encounter procedure Zoie Hernandez HAT BLOCKING MACHINE OPERATOR Work Phone: [facility] Comment on above: Pre-op examination ( Primary Dx); Tear of left supraspinatus tendon Start: 08-02-2024 End: 08-02-2024 Preprocedural examination done Zoie Hernandez HAT BLOCKING MACHINE OPERATOR Work Phone: [facility] Start: 07-30-2024 ambulatory ROSA KILPATRICK [facility] ity:[facility] Start: 07-28-2024 End: 07-28-20[facility] Start: 07-22-2024 End: 07-22-2024 Patient encounter procedure Erin Chapman APRN-NETWORK INTELLIGENCE ANALYST Work Phone: [facility] Comment on above: Encounter for screen ing colonoscopy (Primary Dx); Family history of colon cancer in father Start: 07-22-2024 End: 07-22-2024 ambulatory ERINELVIA CHAPMAN [facility] Start: 07-21-2024 End: 07-28-2024 Telephone encounter Emma Tuttle RN Hematology/Oncology Comment on above: Returning Patient's Call Requesting time off until surgery Start: 07-14-2024 End: 07-23-2024 Orders Only William Hwoell MD, PhD Work Phone: Hematology/Oncology Comment on above: CML (chronic myeloid leukemia) (HCC) (Primary Dx) Biopsy Request Start: 07-06-2024 End: 07-06-2024 [employer] Systems[employer]wn Kilpatrick DO Work Phone: [facility] Start: 07-06-2024 End: 07-06-2024 Bamboo flowsheet Jr. Rosa Kilpatrick DO Work Phone: [facility] Start: 07-06-2024 End: 07-06-2024 Office outpatient visit 40 minutes Jr. Rosa Kilpatrick DO Work Phone: [facility] Comment on above: Acute pain of right shoulder (Primary Dx); History of arthroscopy of right shoulder Start: 07-06-2024 End: 07-06-2024 ambulatory ROSA CARD Not Available Start: 06-18-2024 End: 06-18-2024 Bamboo flowsheet Jr. Rosa Kilpatrick DO Work Phone: [facility] Start: 06-18-2024 End: 06-18-2024 Bamboo flowsheet Jr. Rosa Kilpatrick DO Work Phone: [facility] Start: 06-18-2024 End: 06-18-2024 Office outpatient visit 40 minutes Jr. Rosa Kilpatrick DO Work Phone: [facility] Comment on above: Sprain of left shoul hal, initial encounter; Tear of left supraspinatus tendon; Bicipital tendinitis of left shoulder Start: 06-18-2024 End: 06-18-2024 ambulatory ROSA CARD Not Available Start: 06-16-2024 End: 06-16-2024 Chart abstracting Clare Ortiz Research Coordinator Hematology/Oncology Comment on above: Research ([id number] C ycle 51 D28) Start: 06-16-2024 End: 07-05-2024 Clinisync Result Encounter Generic External Data Provider [facility] External Department Unsolicited Start: 06-16-2024 End: 07-05-2024 Clinisync Result Encounter Generic External Data Provider [facility] External Department Unsolicited Start: 06-16-2024 End: 06-16-2024 Nursing evaluation of patient and report Emma Tuttle furniture crater/Oncology Comment on above: CML (chronic myeloid leukemia) (HCC) (Primary Dx) Start: 06-16-2024 End: 06-16-2024 Patient encounter procedure William Howell MD, PhD Work Phone: Hematology/Oncology Start: 06-16-2024 End: 06-16-2024 ambulatory William Howell MD, PhD Work Phone: Hematology/Oncology Comment on above: CML (chronic myelocy tic leukemia) (HCC) (Primary Dx) Start: 06-10-2024 End: 06-10-2024 Telephone encounter Erin Chapman WREATH INSPECTOR-NETWORK INTELLIGENCE ANALYST Work Phone: [facility] Start: 05-31-2024 End: 05-31-2024 ambulatory BUFFY CHUNG Not Available Start: 05-31-2024 End: 05-31-2024 Office outpatient visit 25 minutes Buffy Chung HAT BLOCKING MACHINE OPERATOR Work Phone: [facility] Comment on above: Type 2 diabetes aris itus with hyperglycemia, with long-term current use of insulin (CMS/HCC) (Primary Dx); Obstructive sleep apnea (adult) (pediatric); Essential (primary) hypertension (CMS/HCC); Hypertrophic cardiomyopathy (CMS/HCC); Morbid (severe) obesity due to excess calories (CMS/HCC); Chronic myeloid leukemia (CMS/HCC); Mixed hyperlipidemia (CMS/HCC); Colon cancer screening Start: 05-31-2024 End: 05-31-2024 Bamboo flowsheet Buffy Chung HAT BLOCKING MACHINE OPERATOR Work Phone: [facility] Start: 05-31-2024 End: 05-31-2024 Bamboo flowsheet Buffy Chung HAT BLOCKING MACHINE OPERATOR Work Phone: [facility] Start: 05-26-2024 End: 05-26-2024 ambulatory Justina Ortega Facility:[facility] Start: 05-19-2024 End: 05-19-2024 Emergency department patient visit BUFFY CHUNG [facility] Start: 04-27-2024 End: 04-27-2024 Office outpatient visit 25 minutes Buffy Chung HAT BLOCKING MACHINE OPERATOR Work Phone: [facility] Comment on above: Type 2 diabetes aris itus with hyperglycemia, with long-term current use of insulin (CMS/[facility]) (Primary Dx); 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/HCC); Essential (primary) hypertension (CMS/HCC); Morbid (severe) obesity due to excess calories (CMS/HCC); Chronic myeloid leukemia (CMS/HCC); Primary hypertension (CMS/HCC); Mixed hyperlipidemia ([facility]/HCC); Bilateral hand pain Start: 04-27-2024 End: 04-27-2024 ambulatory BUFFY DECLANHHOLZ Not Available Start: 04-27-2024 End: 04-27-2024 Bamboo flowsheet Buffy Chung HAT BLOCKING MACHINE OPERATOR Work Phone: [facility] Start: 04-27-2024 End: 04-27-2024 Bamboo flowsheet Buffy Chung HAT BLOCKING MACHINE OPERATOR Work Phone: [facility] Start: 04-16-2024 End: 04-16-2024 ambulatory BUFFY DAY CHUNG Facility:[facility] Start: 04-16-2024 End: 04-16-2024 Patient encounter procedure Kylee Dalal APRN.NETWORK INTELLIGENCE ANALYST Work Phone: Endocrinology Comment on above: Type 2 diabetes aris itus with microalbuminuria, with long-term current use of insulin ([facility]) (Primary Dx); Primary hypertension; Mixed hyperlipidemia Start: 04-09-2024 ambulatory LARS Gatica [facility] Start: 04-06-2024 End: 04-06-2024 ambulatory BUFFY DAY CHUNG Facility:[facility] Start: 04-06-2024 End: 04-07-2024 Clinisync Result Encounter Generic External Data Provider [facility] External Department Unsolicited Start: 04-06-2024 End: 04-07-2024 Clinisync Result Encounter Generic External Data Provider [facility] External Department Unsolicited Start: 03-29-2024 End: 03-29-2024 Bamboeva Kilpatrick DO Work Phone: [facility] Start: 03-29-2024 End: 03-29-2024 Bamboo flowsheet Jr. Rosa Kilpatrick DO Work Phone: [facility] Start: 03-29-2024 End: 03-29-2024 Office outpatient visit 25 minutes Jr. Rosa Kilpatrick DO Work Phone: [facility] Comment on above: Acute pain of right shoulder (Primary Dx); History of arthroscopy of right shoulder; Numbness Start: 03-29-2024 End: 03-29-2024 ambulatory ROSA CARD Not Available Start: 03-19-2024 End: 03-19-2024 Clinisync Result Encounter Generic External Data Provider [facility] External Department Unsolicited Start: 03-19-2024 End: 03-19-2024 Clinisync Result Encounter Generic External Data Provider [facility] External Department Unsolicited Start: 03-19-2024 ambulatory BUFFY Patterson ty:[facility] Start: 03-19-2024 End: 03-19-2024 Subsequent hospital visit by physician Rafael Maravilla MD Work Phone: [id number] Comment on above: 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] Start: 03-17-2024 End: 03-18-2024 Chart abstracting Raheem Santos Research Coordinator Hematology/Oncology Comment on above: Research (ACTG 1920 [id number]) Start: 03-17-2024 End: 03-17-2024 Clinisync Result Encounter Generic External Data Provider [facility] External Department Unsolicited Start: 03-17-2024 End: 03-17-2024 Clinisync Result Encounter Generic External Data Provider [facility] External Department Unsolicited Start: 03-17-2024 End: 03-17-2024 ambulatory William Howell MD, PhD Work Phone: Hematology/Oncology Comment on above: CML (chronic myelocy tic leukemia) (HCC) (Primary Dx) Start: 03-17-2024 End: 03-17-2024 Nursing evaluation of patient and report Emma Tuttle furniture crater/Oncology Comment on above: CML (chronic myeloid leukemia) (HCC) (Primary Dx) Start: 03-17-2024 End: 03-17-2024 Patient encounter procedure William Howell MD, PhD Work Phone: Hematology/Oncology Start: 03-17-2024 End: 03-17-2024 ambulatory BUFFYWalter CHUNG Facility:[facility] Start: 03-15-2024 End: 03-17-2024 Orders Only William Howell MD, PhD Work Phone: Hematology/Oncology Comment on above: CML (chronic myeloid leukemia) (HCC) (Primary Dx) Start: 03-09-2024 ambulatory LARS BELCHER [facility] Start: 03-03-2024 End: 03-03-2024 Office outpatient visit 25 minutes Buffy Chung HAT BLOCKING MACHINE OPERATOR Work Phone: [facility] Comment on above: Type 2 diabetes aris itus with hyperglycemia, with long-term current use of insulin (CMS/HCC) (Primary Dx); Morbid (severe) obesity due to excess calories (CMS/HCC); Obstructive sleep apnea (adult) (pediatric); Body mass index (BMI) 37.0-37.9, adult; Primary hypertension (CMS/HCC) Start: 03-03-2024 End: 03-03-2024 ambulatory BUFFY CHUNG Not Available Start: 03-03-2024 End: 03-03-2024 Bamboo flowsheet Lars RODRIGUEZ Work Phone: [facility] Start: 03-03-2024 End: 03-03-2024 Bamboo flowsheet Lars Belcher PA Work Phone: [facility] Start: 03-03-2024 End: 03-03-2024 ambulatory LARS BELCHER Not Available Start: 03-03-2024 End: 03-03-2024 Postop follow up visit related to original px Lars RODRIGUEZ Work Phone: [facility] Comment on above: Status post arthrosc opy of right shoulder (Primary Dx) Start: 03-01-2024 End: 03-01-2024 Bamboo flowsheet Jr. Rosa Kilpatrick DO Work Phone: [facility] Start: 03-01-2024 End: 03-01-2024 Bamboo flowsheet Jr. Rosa Kilpatrick DO Work Phone: [facility] Start: 03-01-2024 End: 03-01-2024 ambulatory ROSA CARD Not Available Start: 03-01-2024 End: 03-01-2024 Postop follow up visit related to original px Jr. Rosa Kilpatrick DO Work Phone: [facility] Comment on above: Status post arthrosc opy of right shoulder (Primary Dx) Start: 02-26-2024 End: 02-26-2024 Bamboo flowsheet Clara Mantilla DO Work Phone: [facility] Start: 02-26-2024 End: 02-26-2024 Bamboo flowsheet Clara Mantilla DO Work Phone: [facility] Start: 02-26-2024 End: 02-26-2024 Patient encounter procedure Clara Mantilla DO Work Phone: [facility] Comment on above: Carpal tunnel syndro me on right (Primary Dx); Paresthesias in right hand; Arm weakness; Numbness; Arm pain, right; Ulnar neuropathy of right upper extremity Start: 02-26-2024 End: 02-26-2024 ambulatory CLARA MANTILLA Not Available Start: 02-19-2024 End: 02-20-2024 Refill Buffy Chung NP Work Phone: [facility] Comment on above: Type 2 diabetes aris itus with hyperglycemia, with long-term current use of insulin ([facility]) Start: 02-10-2024 End: 02-11-2024 Refill Aman Pack MD Work Phone: [facility] Comment on above: Type 2 diabetes aris itus with hyperglycemia, with long-term current use of insulin (CMS/[facility]) Start: 02-04-2024 End: 02-04-2024 Bamboo flowsheet Lars Belcher PA Work Phone: [facility] Start: 02-04-2024 End: 02-04-2024 Bamboo flowsheet Lars Belcher PA Work Phone: [facility] Start: 02-04-2024 End: 02-04-2024 ambulatory LARS BELCHER Not Available Start: 02-04-2024 End: 02-04-2024 Postop follow up visit related to original px Lars Belcher PA Work Phone: [facility] Comment on above: S/P right rotator cu ff repair (Primary Dx); Paresthesias in right hand Start: 01-20-2024 End: 01-20-2024 ambulatory LARS BELCHER Not Available Start: 01-08-2024 End: 02-08-2024 ambulatory LARS BELCHER [facility] Start: 12-26-2023 Telephone encounter Ludy Kolb RN Work Phone: Hematology/Oncology Comment on above: Results Start: 12-25-2023 End: 12-25-2023 ambulatory BUFFY CHUNG Facility:[facility] Start: 12-24-2023 Chart abstracting Raheem burnette Research Coordinator Hematology/Oncology Comment on above: Research (ACTG 1920 [id number]) Start: 12-24-2023 End: 12-24-2023 ambulatory [facility] LYN[facility] Facility:[facility] Start: 12-24-2023 End: 12-24-2023 Nursing evaluation of patient and report Ludy Kolb RN Work Phone: Hematology/Oncology Comment on above: CML (chronic myeloid leukemia) (HCC) (Primary Dx) Start: 12-24-2023 End: 12-24-2023 Patient encounter procedure Georgiana Menard APRN.NETWORK INTELLIGENCE ANALYST Work Phone: Hematology/Oncology Comment on above: CML (chronic myeloid leukemia) (HCC) (Primary Dx); Exam for clinical research Start: 12-24-2023 End: 12-24-2023 ambulatory WILLIAM HOWELL Facility:[facility] Start: 12-23-2023 End: 01-08-2024 Refill William Trenton IRELANDNETWORK INTELLIGENCE ANALYST Work Phone: Endocrinology Comment on above: Refill Request Start: 12-16-2023 Orders Only William painting MD, PhD Work Phone: Hematology/Oncology Comment on above: Chronic myeloid leuk emia (HCC) (Primary Dx) Start: 12-15-2023 Orders Only William painting MD, PhD Work Phone: Hematology/Oncology Comment on above: CML (chronic myeloid leukemia) (HCC) (Primary Dx) Biopsy Request Start: 12-10-2023 End: 12-10-2023 ambulatory LARS BELCHER Not Available Start: 12-09-2023 End: 12-09-2023 Departed Referred Buffy Chung Work Phone: [facility] [place] Work Phone: Start: 12-09-2023 End: 12-09-2023 ambulatory Buffy Chung Work Phone: [facility] Work Phone: Start: 12-02-2023 End: 12-02-2023 Orders Only Lars RODRIGUEZ Work Phone: [facility] Comment on above: Encounter for other preprocedural examination Start: 12-02-2023 End: 12-02-2023 Patient encounter status Lars RODRIGUEZ Work Phone: [facility] Start: 12-02-2023 Encounter for other preprocedural examination LARS BELCHER [facility] Start: 12-02-2023 End: 12-02-2023 ambulatory LARS BELCHER [facility] Start: 12-01-2023 End: 12-01-2023 ambulatory BUFFY CHUNG Not Available Start: 11-24-2023 End: 11-24-2023 ambulatory ROSA CARD Not Available Start: 10-29-2023 End: 10-29-2023 Office outpatient visit 25 minutes Yan Durham MD Work Phone: [facility] Comment on above: Primary hypertension (Primary Dx); LVH (left ventricular hypertrophy) Start: 10-29-2023 End: 10-29-2023 ambulatory [facility] Start: 10-29-2023 ambulatory BUFFY Rascon DECLANMarieSTEPHANIE [facility] Start: 10-28-2023 Orders Only William Trenton WREATH INSPECTOR.NETWORK INTELLIGENCE ANALYST Work Phone: Endocrinology Start: 10-23-2023 ambulatory [facility] Endocrinol ogy Comment on above: Question Start: 10-23-2023 E-mail encounter margarita bacon caregiver [facility] Provider Endocrinology Start: 10-17-2023 Telephone encounter Kylee Meyer rshall WREATH INSPECTOR.NETWORK INTELLIGENCE ANALYST Work Phone: Endocrinology Start: 10-14-2023 Telephone encounter Raheem feldman Research Coordinator Hematology/Oncology Comment on above: Research (ARIA 2915 Survival Follow-up Last Call) Start: 10-14-2023 End: 10-14-2023 ambulatory BUFFY GILMORENEREIDALurdes Not Available Start: 10-03-2023 End: 10-03-2023 ambulatory AMAN SANTANAMORISBroderick Facility:[facility] Start: 10-01-2023 Chart abstracting Raheem burnette Research Coordinator Hematology/Oncology Comment on above: Research (ACTG 1920 Cycle 42 D28) Start: 10-01-2023 End: 10-01-2023 Nursing evaluation of patient and report Emma Tuttle furniture crater/Oncology Comment on above: CML (chronic myeloid leukemia) [...] (chronic myeloid leukemia) (HCC) (Primary Dx) Start: 09-10-2023 ambulatory BUFFY [facility] Start: 09-10-2023 Telephone encounter Sherrell Esteves CMA [facility] Start: 08-29-2023 End: 08-29-2023 ambulatory KYLEE DALAL Facility:[facility] Start: 08-29-2023 End: 08-29-2023 Patient encounter procedure Kylee Arteagaall WREATH INSPECTOR.NETWORK INTELLIGENCE ANALYST Work Phone: Endocrinology Comment on above: Type 2 diabetes aris itus with microalbuminuria, with long-term current use of insulin (HCC) (Primary Dx); Primary hypertension; Mixed hyperlipidemia Start: 08-20-2023 Orders Only William painting MD, PhD Work Phone: Hematology/Oncology Comment on above: Chronic myeloid leuk emia (HCC) (Primary Dx) Start: 07-31-2023 End: 08-01-2023 ambulatory [facility] Start: 07-09-2023 End: 07-09-2023 ambulatory William Howell MD, PhD Work Phone: Hematology/Oncology Comment on above: CML (chronic myelocy tic leukemia) (HCC) (Primary Dx) Start: 07-09-2023 End: 07-09-2023 Patient encounter procedure William Howell MD, PhD Work Phone: [facility] Start: 06-30-2023 End: 06-30-2023 Office outpatient visit 40 minutes Yan Durham MD Work Phone: [facility] Comment on above: Palpitations (Primar y Dx); Abnormal ECG; LVH (left ventricular hypertrophy); Hypertrophic cardiomyopathy (CMS-HCC) Start: 06-13-2023 End: 06-13-2023 Subsequent hospital visit by physician Jennifer Lacy 1 Work Phone: Radiology Comment on above: Right shoulder pain, unspecified chronicity [M25.511] Start: 05-20-2023 Orders Only William painting MD, PhD Work Phone: Hematology/Oncology Comment on above: CML (chronic myeloid leukemia) (HCC) (Primary Dx) Start: 05-09-2023 Telephone encounter Raheem feldman Research Coordinator Hematology/Oncology Start: 04-29-2023 Telephone encounter Raheem feldman Research Coordinator Hematology/Oncology Comment on above: Research (ARIA 2915 Survival Follow-up) Start: 04-17-2023 Orders Only William painting MD, PhD Work Phone: Hematology/Oncology Comment on above: CML (chronic myeloid leukemia) (HCC) (Primary Dx) Start: 04-16-2023 End: 04-16-2023 Orders Only William Howell MD, PhD Work Phone: Hematology/Oncology Comment on above: CML (chronic myeloid leukemia) (HCC) (Primary Dx) Chronic myeloid leuk emia (HCC) CML (chronic myelocy tic leukemia) (HCC) (Primary Dx) Start: 03-20-2023 Refill Kylee ni WREATH INSPECTOR.NETWORK INTELLIGENCE ANALYST Work Phone: Endocrinology Comment on above: Refill Request Start: 02-05-2023 End: 02-05-2023 ambulatory Buffy Chung Work Phone: [facility] Work Phone: Start: 02-05-2023 End: 02-05-2023 Patient encounter procedure Buffy Chung Work Phone: [facility] [address] Work Phone: Start: [...] (HCC) (Primary Dx) Start: 01-22-2023 End: 01-22-2023 Nursing evaluation of patient and report Emma Tuttle furniture crater/Oncology Comment on above: CML (chronic myeloid leukemia) (HCC) (Primary Dx) Start: 01-22-2023 End: 01-22-2023 Patient encounter procedure William Howell MD, PhD Work Phone: [facility] Start: 01-21-2023 Telephone encounter William taylor [...] procedure William Howell MD, PhD Work Phone: [facility] Start: 10-16-2022 End: 10-17-2022 ambulatory [facility] Start: 10-15-2022 End: 10-16-2022 ambulatory [facility] Start: 10-15-2022 End: 10-15-2022 Patient encounter procedure Kylee Dalal APRN.NETWORK INTELLIGENCE ANALYST Work Phone: Endocrinology Comment on above: Type 2 diabetes aris itus with hyperglycemia, with long-term current use of insulin (HCC) (Primary Dx); Primary hypertension; Mixed hyperlipidemia Start: 09-17-2022 ambulatory Emma Tuttle RN matology/Oncology Comment on above: return call Start: 09-17-2022 E-mail encounter margarita bacon caregiver Emma Tuttle RN [facility] Start: 08-06-2022 End: 08-07-2022 Orders Only [...] procedure William Howell MD, PhD Work Phone: [facility] Start: 07-30-2022 ambulatory Kylee ni WREATH INSPECTOR.NETWORK INTELLIGENCE ANALYST Work Phone: Endocrinology Comment on above: Insulin Adjustments Start: 07-30-2022 E-mail encounter margarita bacon caregiver Kylee Dalal APRN.NETWORK INTELLIGENCE ANALYST Work Phone: [facility] Start: 07-30-2022 End: 07-30-2022 Nursing evaluation of [...] End: 07-15-2022 Patient encounter procedure Kylee Dalal APRN.NETWORK INTELLIGENCE ANALYST Work Phone: Endocrinology Comment on above: Type [...] Refill Request Start: 05-12-2022 End: 05-12-2022 ambulatory DOMINIC CHUNG Facility: Start: 05-10-2022 Orders Only William painting MD, PhD Work Phone: Hematology/Oncology Comment on above: Chronic myeloid leuk emia (HCC) (Primary Dx) CML (chronic myelocy tic leukemia) (HCC) (Primary Dx) Start: 05-03-2022 Telephone encounter Kylee campbell APRN.NETWORK INTELLIGENCE ANALYST Work Phone: Endocrinology Comment on above: Patient Question Start: 03-25-2022 ambulatory Kylee ni APRN.CNP Work Phone: Endocrinology Comment on above: Lab results Start: 03-25-2022 E-mail encounter fro m caregiver Kylee Dalal APRN.NETWORK INTELLIGENCE ANALYST Work Phone: [facility] Start: 03-19-2022 End: 03-19-2022 Patient encounter procedure Kylee Dalal APRN.NETWORK INTELLIGENCE ANALYST Work Phone: Endocrinology Comment on above: Uncontrolled type 2 diabetes mellitus with hyperglycemia (HCC) (Primary Dx); Mixed hyperlipidemia Start: 02-18-2022 End: 02-18-2022 ambulatory William Howell MD, PhD Work Phone: Hematology/Oncology Comment on above: CML (chronic myelocy tic leukemia) (HCC) (Primary Dx) Start: 02-18-2022 End: 02-18-2022 Nursing evaluation of patient and report Emma Tuttle furniture crater/Oncology Comment on above: CML (chronic myeloid leukemia) (HCC) (Primary Dx) Start: 02-18-2022 End: 02-18-2022 Patient encounter procedure William Howell MD, PhD Work Phone: [facility] Start: 02-15-2022 Orders Only William painting [...] Start: 11-30-2021 Telephone encounter Emma Gray i furniture crater/Oncology Comment on above: Appointment Start: 11-29-2021 Orders [...] procedure William Howell MD, PhD Work Phone: [facility] Start: 11-21-2021 End: 11-21-2021 ambulatory NETWORK INTELLIGENCE ANALYST BUFFY AICHHOLZ Facility:[facility] Start: 11-01-2021 End: 11-01-2021 ambulatory NETWORK INTELLIGENCE ANALYST BUFFY AICHHOLZ Facility:[facility] Start: 10-03-2021 End: 10-03-2021 ambulatory NETWORK INTELLIGENCE ANALYST BUFFY AICHHOLZ Facility:[facility] Start: 09-11-2021 Telephone encounter Emma Gray i, RN Hematology/Oncology Comment on above: Patient Question Start: 09-10-2021 Orders Only William painting MD, PhD Work Phone: Hematology/Oncology Comment on above: CML (chronic myeloid leukemia) (HCC) (Primary Dx) Start: 09-06-2021 Telephone encounter Emma Gray i, RN Hematology/Oncology Comment on above: Medication Problem Start: 09-05-2021 End: 09-06-2021 ambulatory NETWORK INTELLIGENCE ANALYST BUFFY AICHHOLZ Facility:[facility] Start: 09-04-2021 Telephone encounter William taylor MD, PhD Work Phone: Hematology/Oncology Comment on above: Biopsy Request Start: 09-03-2021 Chart abstracting Emma Giselle Cinalli furniture crater/Oncology Comment on above: Research (ACTG 1920 / IRB [id number] reconsent) Start: 09-03-2021 End: 09-03-2021 Patient encounter procedure [facility] Work Phone: Vascular Medicine Comment on above: CML (chronic myeloid leukemia) (HCC) Start: 09-03-2021 End: 09-03-2021 Nursing evaluation of patient and report Emma Tuttle furniture crater/Oncology Comment on above: CML (chronic myeloid leukemia) (HCC) (Primary Dx) Procedures Date Procedure Procedure Detail Performing Clinician Start: 06-16-2024 Ecg routine ecg w/le ast 12 lds w/i&r Generic External Data Provider Start: 06-16-2024 [facility] CBC W AUTO DIFF BLD Generic External Data Provider Start: 04-06-2024 [facility] COMP METAB 2000 PNL SERPL Generic External Data Provider Start: 03-19-2024 [facility] FLOW CYTOMETRY F OR LEUKEMIA/LYMPHOMA (FCLL) PERFORMABLE Generic External Data Provider Start: 03-19-2024 FLOW CYTOMETRY FOR LEUKEMIA/LYMPHOMA (FCLL) William Howell MD, PhD Work Phone: Start: 03-19-2024 FLOW CYTOMETRY FOR LEUKEMIA/LYMPHOMA (FCLL) PERFORMABLE William Howell MD, PhD Work Phone: Start: 03-19-2024 Gluc bld gluc mntr d ev cleared fda spec home use Rafael Maravilla MD Work Phone: Start: 03-17-2024 [facility] CBC W AUTO DIFF BLD Generic External Data Provider Start: 02-26-2024 End: 02-26-2024 Needle emg ea extremty w/paraspinl area complete Clara Mantilla DO Work Phone: Start: 12-24-2023 End: 12-24-2023 Ecg routine ecg w/least 12 lds i&r only [facility] Provider Start: 10-29-2023 Follow-up visit Follow-up YAN DURHAM Start: 06-13-2023 Radex shoulder compl ete minimum 2 views Loco Wynn PA-C Work Phone: Start: 04-16-2023 Echo tthrc r-t 2d w/wom-mode compl spec&colr d William Howell MD, PhD Work Phone: Start: 02-05-2023 XR pre/post mri xray Jaja mir Juliet Work Phone: Start: 02-05-2023 MRI of right shoulder Smita hurley Declanmariestephanie Work Phone: Start: 10-15-2022 Hemoglobin A1c/Hemoglobin.total in Blood Kylee Scot WREATH INSPECTOR.NETWORK INTELLIGENCE ANALYST Work Phone: Start: 08-06-2022 PSA screening NETWORK INTELLIGENCE ANALYST BUFFY JULIET Comment on above: Performed By: #### M ALBR #### [facility] [address] [place], [place] [id number] Dr. Yinka Flores Start: 07-15-2022 Hemoglobin A1c/Hemoglobin.total in Blood Kylee Scot WREATH INSPECTOR.NETWORK INTELLIGENCE ANALYST Work Phone: Start: 03-19-2022 Hemoglobin A1c/Hemoglobin.total in Blood Kylee Scot WREATH INSPECTOR.NETWORK INTELLIGENCE ANALYST Work Phone: Start: 09-05-2021 PSA screening NETWORK INTELLIGENCE ANALYST BUFFY DECLANMarieSTEPHANIE Comment on above: Performed By: #### M ALBR #### [facility] [address] [place], [place] [id number] Dr. Yinka Flores Start: 09-03-2021 Echo tthrc r-t 2d w/wom-mode compl spec&colr d Connie Burns WREATH INSPECTOR.NETWORK INTELLIGENCE ANALYST Work Phone: Start: 09-03-2021 LVEF TRANSTHORACIC ECHO Connie Burns APRN.NETWORK INTELLIGENCE ANALYST Work Phone: Start: 06-11-2021 Adult depression scr eening assessment Emma Tuttle RN History of repair of musculotendinous cuff of shoulder S/P right rotator cuff repair Lars RODRIGUEZ Work Phone: Plan of Treatment Date Care Activity Detail Author Start: 08-06-2027 Prostate specific antigen measurement Prostate Cancer Screening Discussion [facility] Start: 05-13-2027 LIPID SCREEN LIPID SCREEN [facility] Start: 03-22-2027 LIPID SCREEN LIPID SCREEN [facility] Start: 02-18-2027 LIPID SCREEN LIPID SCREEN [facility] Start: 11-26-2026 LIPID SCREEN LIPID SCREEN [facility] Start: 09-03-2026 LIPID SCREEN LIPID SCREEN [facility] Start: 06-19-2026 Glaucoma screening Diabetes: Retinopathy Screening [facility] Start: 07-22-2025 Adult BMI Screening Adult BMI Screening [facility] Start: 07-22-2025 Tobacco Screening Tobacco Screening [facility] Start: 05-19-2025 Adult BMI Screening Adult BMI Screening [facility] Start: 05-19-2025 Tobacco Screening Tobacco Screening [facility] Start: 05-13-2025 DIABETES SCREEN DIABETES SCREEN [facility] Start: 04-16-2025 BP Controlled (<130/80) BP Controlled (<130/80) [facility] Start: 03-22-2025 DIABETES SCREEN DIABETES SCREEN [facility] Start: 03-19-2025 DIABETES SCREEN DIABETES SCREEN [facility] Start: 02-18-2025 DIABETES SCREEN DIABETES SCREEN [facility] Start: 11-26-2024 DIABETES SCREEN DIABETES SCREEN [facility] Start: 11-11-2024 End: 11-11-2024 Patient encounter procedure 11/11/2024 9:20 AM EDT Office Visit [facility] [address] [place] [address] Buffy Chung, YANE [address] [place] [address] [facility] Start: 10-28-2024 Adult BMI Screening Adult BMI Screening [facility] Start: 10-28-2024 Tobacco Screening Tobacco Screening [facility] Start: 09-14-2024 Hemoglobin A1c measurement [facility] Start: 09-10-2024 End: 09-10-2024 Admission to same day surgery center 09/10/2024 8:00 AM EDT - 09/10/2024 9:00 AM EDT Surgery [facility] [address] [place] [address] [employer] [address] [facility] [place] [address] DIAGNOSTIC BONE MARROW BIOPSY(IES) [facility] Comment on above: DIAGNOSTIC BONE MARROW BIOPSY(IES) Start: 09-10-2024 End: 09-10-2024 Diagnostic bone marrow biopsies DIAGNOSTIC BONE MARROW BIOPSY(IES) CML (chronic myeloid leukemia) (HCC) 09/10/2024 8:00 AM EDT [facility] HB6 Start: 09-10-2024 Subsequent hospital visit by physician 09/10/2024 8:00 AM EDT Hospital Encounter [facility] [address] [place] [address] [employer] [address] [place] [address] 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] [facility] Comment on above: CML (chronic myeloid leukemia) (HCC) [C9 2.10] Start: 09-08-2024 End: 09-08-2024 Patient encounter procedure 09/08/2024 12:30 PM EDT Office Visit Vascular Medicine [address] [place] [address] Echo to research no auth needed Vascular Medicine Comment on above: Echo to research no auth needed Start: 09-08-2024 End: 09-08-2024 Nursing evaluation of patient and report 09/08/2024 9:00 AM EDT Nurse Visit Hematology/Oncology [address] [place] [address] Emma Tuttle, RN [address] [place] [address] STUDY PT Hematology/Oncology Comment on above: STUDY PT Start: 09-08-2024 End: 09-08-2024 ambulatory [facility] 1 Greta mirna Quintanilla Comment on above: STUDY PT ekg to research Start: 09-06-2024 End: 09-06-2024 Patient encounter procedure 09/06/2024 12:00 PM EDT Office Visit [facility] [address] [place] [address] Yan Durham MD [address] [place] [address] [facility] Start: 09-03-2024 DIABETES SCREEN DIABETES SCREEN [facility] Start: 08-30-2024 End: 08-30-2024 Patient encounter procedure 08/30/2024 8:30 AM EDT Office Visit [facility] [address] [facility] [phone] Zoie Hernandez, YANE [address] [place], [place] [phone] [facility] Start: 08-28-2024 BP Controlled (<130/80) BP Controlled (<130/80) [facility] Start: 08-13-2024 End: 08-13-2024 Admission to same day surgery center 08/13/2024 10:30 AM EST - 08/13/2024 11:00 AM EST Surgery [facility] [address] [facility] [facility] [place] [phone] Lena Gandara MD [address] [place] [phone] COLONOSCOPY DIAGNOSTIC / SCREENING [45020 (CPT )] [facility] Comment on above: COLONOSCOPY DIAGNOSTIC / SCREENING [4537 8 (CPT )] Start: 08-13-2024 End: 08-13-2024 Colonoscopy flx dx w/collj spec when pfrmd COLONOSCOPY DIAGNOSTIC / SCREENING Screen for colon cancer 08/13/2024 10:30 AM [facility] Start: 08-13-2024 Subsequent hospital visit by physician 08/13/2024 10:30 AM EST Hospital Encounter [facility] [address] [place] [phone] Lena Gandara MD [address] [place] [phone] [facility] Start: 08-11-2024 End: 08-11-2025 Microalbumin/Creatinine panel in random Urine Microalbumin / creatinine, urine ratio Lab Routine Essential (primary) hypertension (CMS/HCC) 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) Expected: 08/11/2024 (Approximate), Expires: 08/11/2025 [facility] Work Phone: Comment on above: Expected: 08/11/2024 (Approximate), Expi res: 08/11/2025 Start: 08-11-2024 End: 08-11-2025 Prostate specific Ag [Mass/volume] in Serum or Plasma PSA Lab Routine Screening for prostate cancer Expected: 08/11/2024 (Approximate), Expires: 08/11/2025 [facility] Comment on above: Expected: 08/11/2024 (Approximate), Expi res: 08/11/2025 Start: 08-11-2024 End: 08-11-2025 Urinalysis with microscopic (reflex culture if indicated) Urinalysis with microscopic (reflex culture if indicated) Lab Routine Essential (primary) hypertension (CMS/HCC) 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); Mixed hyperlipidemia (CMS/HCC); Hypertrophic cardiomyopathy (CMS/HCC); LVH (left ventricular hypertrophy); Type 2 diabetes mellitus with hyperglycemia, with long-term current use of insulin (CMS/HCC); Screening for prostate cancer Start: 08-06-2024 Urine screening for protein Diabetes: Urine Protein Screening [facility] Start: 08-05-2024 End: 08-05-2024 ambulatory 08/05/2024 3:30 PM EST Support Visit [facility] - Pre Admit [address] [place] [address] [facility] - Pre Admit Start: 08-02-2024 End: 08-02-2024 Patient encounter procedure [facility] Start: 07-24-2024 Adult BMI Screening Adult BMI Screening [facility] Start: 07-19-2024 End: 07-19-2024 Patient encounter procedure 07/19/2024 3:00 PM EST Office Visit Endocrinology [address] [place], [place] [phone] Kylee Dalal, JEANNIE.NETWORK INTELLIGENCE ANALYST [address] [facility] [address] [place], [place] [phone] Return in about 3 months (around 07/17/2024). Endocrinology Comment on above: Return in about 3 months (around ). Start: 07-09-2024 Hepatitis B surface antibody level LDL Cholesterol [facility] Start: 07-06-2024 End: 07-06-2024 Patient encounter procedure [facility] Comment on above: Sprain of left shoulder, initial encount er (Primary Dx); Tear of left supraspinatus tendon Start: 07-05-2024 End: 07-05-2024 Patient encounter procedure 07/05/2024 1:00 PM EST Office Visit [facility] [address] [place] [phone] Jr. Rosa Kilpatrick, DO [address] [place] [address] [facility] Start: 06-30-2024 Adult BMI Screening Adult BMI Screening [facility] Start: 06-30-2024 Tobacco Screening Tobacco Screening [facility] Start: 06-18-2024 End: 06-18-2024 Patient encounter procedure [facility] Comment on above: Arrived Start: 06-17-2024 Hemoglobin A1c measurement [facility] Start: 06-16-2024 End: 06-16-2024 Patient encounter procedure 06/16/2024 12:30 PM EST Office Visit Vascular Medicine [address] [place] [phone] echo to research no auth needed Vascular Medicine Comment on above: echo to research no auth needed Start: 06-16-2024 End: 06-16-2024 Nursing evaluation of patient and report 06/16/2024 10:00 AM EST Nurse Visit Hematology/Oncology [address] [place] [address] Emma Tuttle, RN [address] [place] [address] STUDY PT Hematology/Oncology Comment on above: STUDY PT Start: 06-16-2024 End: 06-16-2024 [facility] [address] Quintanilla Comment on above: STUDY PT ekg to research Start: 05-31-2024 End: 05-31-2024 Patient encounter procedure 05/31/2024 3:20 PM EST Office Visit [facility] [address] [place] [address] Buffy Chung, HAT BLOCKING MACHINE OPERATOR [address] [place] [phone] MIGUEL ÁNGEL [facility] Start: 04-27-2024 End: 04-27-2024 Patient encounter procedure 04/27/2024 3:20 PM EST Office Visit [facility] [address] [place] [address] Buffy Chung, HAT BLOCKING MACHINE OPERATOR [address] [place] [address] Essential (primary) hypertension (CMS/HCC) (Primary Dx); 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/HCC); Morbid (severe) obesity due to excess calories (CMS/HCC); Type 2 diabetes mellitus with hyperglycemia, with long-term current use of insulin (CMS/HCC); Chronic myeloid leukemia (CMS/HCC); Primary hypertension (CMS/HCC); Mixed hyperlipidemia (CMS/HCC) [facility] Comment on above: Essential (primary) hypertension (CMS/HC C) (Primary Dx); 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/HCC); Morbid (severe) obesity due to excess calories (CMS/HCC); Type 2 diabetes mellitus with hyperglycemia, with long-term current use of insulin (CMS/HCC); Chronic myeloid leukemia (CMS/HCC); Primary hypertension (CMS/HCC); Mixed hyperlipidemia (CMS/HCC) Start: 04-17-2024 Hepatitis B screening Urine Albumin:Creatinine Ratio [facility] Start: 04-16-2024 End: 04-16-2024 Patient encounter procedure 04/16/2024 3:30 PM EST Office Visit Endocrinology [address] [facility] [address] [place], [place] [phone] Kylee Dalal APRN.NETWORK INTELLIGENCE ANALYST [address] [facility] [address] [place], [place] [phone] 6 months (around 02/29/2024 Endocrinology Comment on above: 6 months (around 02/29/2024 Start: 04-16-2024 End: 07-16-2024 Microalbumin/Creatinine [Mass Ratio] in Urine ALBUMIN/CREATININE RATIO, URINE Lab Routine Type 2 diabetes mellitus with microalbuminuria, with long-term current use of insulin ([facility]) Expected: 04/16/2024, Expires: 07/16/2024 [facility] Work Phone: Comment on above: Expected: 04/16/2024, Expires: Start: 04-01-2024 Hemoglobin A1c measurement HbA1C [facility] Start: 04-01-2024 End: 04-01-2024 Patient encounter procedure 04/01/2024 2:00 PM EDT Office Visit [facility] [address] [place] [address] Buffy Chung NP [address] [place] [phone] [facility] Start: 03-29-2024 End: 03-29-2024 Patient encounter procedure [facility] Comment on above: Arrived Start: 03-25-2024 Hemoglobin A1c measurement [facility] Start: 03-19-2024 End: 03-19-2024 Admission to same day surgery center [facility] Comment on above: DIAGNOSTIC BONE MARROW BIOPSY(IES) Start: 03-19-2024 End: 03-19-2024 Diagnostic bone marrow biopsies DIAGNOSTIC BONE MARROW BIOPSY(IES) CML (chronic myeloid leukemia) (HCC) 03/19/2024 8:00 AM EDT [facility] HB6 Start: 03-19-2024 Subsequent hospital visit by physician [facility] Comment on above: CML (chronic myeloid leukemia) (HCC) [C9 2.10] Start: 03-17-2024 End: 03-18-2024 Amylase [Enzymatic activity/volume] in Serum or Plasma AMYLASE Lab Routine Chronic myeloid leukemia (HCC) Expected: 03/17/2024, Expires: 03/18/2024 [facility] Comment on above: Expected: 03/17/2024, Expires: Start: 03-17-2024 End: 03-18-2024 aPTT in Platelet poor plasma by Coagulation assay ACTIVATED PARTIAL THROMBOPLASTIN TIME Lab Routine Chronic myeloid leukemia (HCC) Expected: 03/17/2024, Expires: 03/18/2024 [facility] Comment on above: Expected: 03/17/2024, Expires: Start: 03-17-2024 End: 03-18-2024 BCR/ABL1 P210 QUANTITATIVE PCR BLOOD BCR/ABL1 P210 QUANTITATIVE PCR BLOOD Lab Routine Chronic myeloid leukemia (HCC) Expected: 03/17/2024, Expires: 03/18/2024 [facility] Comment on above: Expected: 03/17/2024, Expires: Start: 03-17-2024 End: 03-18-2024 Bilirubin.conjugated [Mass/volume] in Serum or Plasma BILIRUBIN, CONJUGATED Lab Routine Chronic myeloid leukemia (HCC) Expected: 03/17/2024, Expires: 03/18/2024 [facility] Comment on above: Expected: 03/17/2024, Expires: Start: 03-17-2024 End: 03-18-2024 CBC W Auto Differential panel - Blood COMPLETE BLOOD COUNT AND DIFFERENTIAL Lab Routine Chronic myeloid leukemia (HCC) Expected: 03/17/2024, Expires: 03/18/2024 [facility] Work Phone: Comment on above: Expected: 03/17/2024, Expires: Start: 03-17-2024 End: 03-18-2024 Cholesterol [Mass/volume] in Serum or Plasma TOTAL CHOLESTEROL Lab Routine Chronic myeloid leukemia (HCC) Expected: 03/17/2024, Expires: 03/18/2024 [facility] Comment on above: Expected: 03/17/2024, Expires: Start: 03-17-2024 End: 03-18-2024 Comprehensive metabolic 2000 panel - Serum or Plasma COMPREHENSIVE METABOLIC PANEL Lab Routine Chronic myeloid leukemia (HCC) Expected: 03/17/2024, Expires: 03/18/2024 [facility] Comment on above: Expected: 03/17/2024, Expires: Start: 03-17-2024 End: 03-18-2024 Creatine kinase [Enzymatic activity/volume] in Serum or Plasma CREATINE KINASE/CK Lab Routine Chronic myeloid leukemia (HCC) Expected: 03/17/2024, Expires: 03/18/2024 [facility] Comment on above: Expected: 03/17/2024, Expires: Start: 03-17-2024 End: 03-18-2024 ECG COMPLETE ECG COMPLETE ECG Routine Chronic myeloid leukemia (HCC) Expected: 03/17/2024, Expires: 03/18/2024 [facility] Comment on above: Expected: 03/17/2024, Expires: Start: 03-17-2024 End: 03-18-2024 Echocardiography ECHO Cardiology Routine Chronic myeloid leukemia (HCC) Expected: 03/17/2024, Expires: 03/18/2024 [facility] Comment on above: Expected: 03/17/2024, Expires: Start: 03-17-2024 End: 03-18-2024 Hemoglobin A1c in Blood HEMOGLOBIN A1C Lab Routine Chronic myeloid leukemia (HCC) Expected: 03/17/2024, Expires: 03/18/2024 [facility] Comment on above: Expected: 03/17/2024, Expires: Start: 03-17-2024 End: 03-18-2024 HIGH SENSITIVITY TROPONIN T HIGH SENSITIVITY TROPONIN T Lab Routine Chronic myeloid leukemia (HCC) Expected: 03/17/2024, Expires: 03/18/2024 [facility] Comment on above: Expected: 03/17/2024, Expires: Start: 03-17-2024 End: 03-18-2024 Lipase [Enzymatic activity/volume] in Serum or Plasma LIPASE Lab Routine Chronic myeloid leukemia (HCC) Expected: 03/17/2024, Expires: 03/18/2024 [facility] Comment on above: Expected: 03/17/2024, Expires: Start: 03-17-2024 End: 03-18-2024 Magnesium [Mass/volume] in Serum or Plasma MAGNESIUM Lab Routine Chronic myeloid leukemia (HCC) Expected: 03/17/2024, Expires: 03/18/2024 [facility] Comment on above: Expected: 03/17/2024, Expires: Start: 03-17-2024 End: 03-18-2024 MISC SEND OUT TST 1 MISC SEND OUT TST 1 Lab Routine Chronic myeloid leukemia (HCC) Expected: 03/17/2024, Expires: 03/18/2024 [facility] Comment on above: Expected: 03/17/2024, Expires: Start: 03-17-2024 End: 03-18-2024 Phosphate [Mass/volume] in Serum or Plasma PHOSPHORUS INORGANIC Lab Routine Chronic myeloid leukemia (HCC) Expected: 03/17/2024, Expires: 03/18/2024 [facility] Comment on above: Expected: 03/17/2024, Expires: Start: 03-17-2024 End: 03-18-2024 PT panel - Platelet poor plasma by Coagulation assay PROTHROMBIN TIME Lab Routine Chronic myeloid leukemia (HCC) Expected: 03/17/2024, Expires: 03/18/2024 [facility] Comment on above: Expected: 03/17/2024, Expires: Start: 03-17-2024 End: 03-18-2024 Triglyceride [Mass/volume] in Serum or Plasma TRIGLYCERIDES Lab Routine Chronic myeloid leukemia (HCC) Expected: 03/17/2024, Expires: 03/18/2024 [facility] Comment on above: Expected: 03/17/2024, Expires: Start: 03-17-2024 End: 03-18-2024 Urate [Mass/volume] in Serum or Plasma URIC ACID Lab Routine Chronic myeloid leukemia (HCC) Expected: 03/17/2024, Expires: 03/18/2024 [facility] Comment on above: Expected: 03/17/2024, Expires: Start: 03-17-2024 End: 03-18-2024 URINALYSIS, DIPSTICK ONLY URINALYSIS, DIPSTICK ONLY Lab Routine Chronic myeloid leukemia (HCC) Expected: 03/17/2024, Expires: 03/18/2024 [facility] Comment on above: Expected: 03/17/2024, Expires: Start: 03-17-2024 End: 03-17-2024 Patient encounter procedure 03/17/2024 12:30 PM EDT Office Visit Vascular Medicine [address] [place] [address] ECHO HEART, LIMITED Vascular Medicine Comment on above: ECHO HEART, LIMITED Start: 03-17-2024 End: 03-17-2024 Nursing evaluation of patient and report 03/17/2024 11:30 AM EDT Nurse Visit Hematology/Oncology [address] [place] [address] Emma Tuttle, RN [address] [place] [address] ECHO HEART, LIMITED Hematology/Oncology Comment on above: ECHO HEART, LIMITED Start: 03-17-2024 End: 03-17-2024 ambulatory [facility] [address] Quintanilla Comment on above: ECHO HEART, LIMITED Start: 03-08-2024 End: 03-08-2024 Patient encounter procedure 03/08/2024 8:30 AM EDT Office Visit Endocrinology [address] [place] [address] Kylee Dalal, JEANNIE.NETWORK INTELLIGENCE ANALYST [address] [facility] [place] [id number] 6 months (around 02/29/2024 Endocrinology Comment on above: 6 months (around 02/29/2024 Start: 03-03-2024 End: 03-03-2024 Patient encounter procedure [facility] Start: 03-01-2024 End: 03-01-2024 Patient encounter procedure 03/01/2024 11:00 AM EDT Office Visit [facility] [address] [place] [address] Jr. Rosa Kilpatrick, DO [address] [place] [address] [facility] Start: 02-26-2024 End: 02-26-2024 Patient encounter procedure [facility] Comment on above: Arrived Start: 02-25-2024 End: 02-25-2024 Patient encounter procedure 02/25/2024 2:00 PM EDT Office Visit [facility] [address] [place] [id number] Jr. Rosa Kilpatrick, DO [address] [place] [address] [facility] Start: 02-08-2024 Influenza vaccination [facility] Start: 01-07-2024 Hemoglobin A1c measurement HbA1C [facility] Start: 12-24-2023 End: 12-25-2023 Amylase [Enzymatic activity/volume] in Serum or Plasma AMYLASE BLD Lab Routine Chronic myeloid leukemia (HCC) Expected: 12/24/2023, Expires: 12/25/2023 [facility] Work Phone: Comment on above: Expected: 12/24/2023, Expires: 4 Start: 12-24-2023 End: 12-25-2023 aPTT in Platelet poor plasma by Coagulation assay ACTIVATED PTT Lab Routine Chronic myeloid leukemia (HCC) Expected: 12/24/2023, Expires: 12/25/2023 [facility] Work Phone: Comment on above: Expected: 12/24/2023, Expires: Start: 12-24-2023 End: 12-25-2023 BCR/ABL1 P210 QUANTITATIVE PCR BLOOD BCR/ABL1 P210 QUANTITATIVE PCR BLOOD Lab Routine Chronic myeloid leukemia (HCC) Expected: 12/24/2023, Expires: 12/25/2023 [facility] Work Phone: Comment on above: Expected: 12/24/2023, Expires: Start: 12-24-2023 End: 12-25-2023 Bilirubin.conjugated [Mass/volume] in Serum or Plasma BILIRUBIN DIRECT BLD Lab Routine Chronic myeloid leukemia (HCC) Expected: 12/24/2023, Expires: 12/25/2023 [facility] Work Phone: Comment on above: Expected: 12/24/2023, Expires: Start: 12-24-2023 End: 12-25-2023 CBC W Auto Differential panel - Blood CBC + DIFF Lab Routine Chronic myeloid leukemia (HCC) Expected: 12/24/2023, Expires: 12/25/2023 [facility] Work Phone: Comment on above: Expected: 12/24/2023, Expires: Start: 12-24-2023 End: 12-25-2023 Cholesterol [Mass/volume] in Serum or Plasma CHOLESTEROL BLD Lab Routine Chronic myeloid leukemia (HCC) Expected: 12/24/2023, Expires: 12/25/2023 [facility] Work Phone: Comment on above: Expected: 12/24/2023, Expires: Start: 12-24-2023 End: 12-25-2023 Comprehensive metabolic 2000 panel - Serum or Plasma COMP METABOLIC PANEL Lab Routine Chronic myeloid leukemia (HCC) Expected: 12/24/2023, Expires: 12/25/2023 [facility] Work Phone: Comment on above: Expected: 12/24/2023, Expires: Start: 12-24-2023 End: 12-25-2023 Creatine kinase [Enzymatic activity/volume] in Serum or Plasma CK CREATINE KINASE Lab Routine Chronic myeloid leukemia (HCC) Expected: 12/24/2023, Expires: 12/25/2023 [facility] Work Phone: Comment on above: Expected: 12/24/2023, Expires: Start: 12-24-2023 End: 12-25-2023 ECG COMPLETE ECG COMPLETE ECG Routine Chronic myeloid leukemia (HCC) Expected: 12/24/2023, Expires: 12/25/2023 [facility] Work Phone: Comment on above: Expected: 12/24/2023, Expires: Start: 12-24-2023 End: 12-25-2023 Echocardiography ECHO Cardiology Routine Chronic myeloid leukemia (HCC) Expected: 12/24/2023, Expires: 12/25/2023 [facility] Work Phone: Comment on above: Expected: 12/24/2023, Expires: Start: 12-24-2023 End: 12-25-2023 Hemoglobin A1c in Blood HGB A1C Lab Routine Chronic myeloid leukemia (HCC) Expected: 12/24/2023, Expires: 12/25/2023 [facility] Work Phone: Comment on above: Expected: 12/24/2023, Expires: Start: 12-24-2023 End: 12-25-2023 HIGH SENSITIVITY TROPONIN T HIGH SENSITIVITY TROPONIN T Lab Routine Chronic myeloid leukemia (HCC) Expected: 12/24/2023, Expires: 12/25/2023 [facility] Work Phone: Comment on above: Expected: 12/24/2023, Expires: Start: 12-24-2023 End: 12-25-2023 Lipase [Enzymatic activity/volume] in Serum or Plasma LIPASE BLD Lab Routine Chronic myeloid leukemia (HCC) Expected: 12/24/2023, Expires: 12/25/2023 [facility] Work Phone: Comment on above: Expected: 12/24/2023, Expires: Start: 12-24-2023 End: 12-25-2023 Magnesium [Mass/volume] in Serum or Plasma MAGNESIUM BLD Lab Routine Chronic myeloid leukemia (HCC) Expected: 12/24/2023, Expires: 12/25/2023 [facility] Work Phone: Comment on above: Expected: 12/24/2023, Expires: Start: 12-24-2023 End: 12-25-2023 MISC SEND OUT TST 1 MISC SEND OUT TST 1 Lab Routine Chronic myeloid leukemia (HCC) Expected: 12/24/2023, Expires: 12/25/2023 [facility] Work Phone: Comment on above: Expected: 12/24/2023, Expires: Start: 12-24-2023 End: 12-25-2023 Phosphate [Mass/volume] in Serum or Plasma PHOSPHORUS INORGANIC Lab Routine Chronic myeloid leukemia (HCC) Expected: 12/24/2023, Expires: 12/25/2023 [facility] Work Phone: Comment on above: Expected: 12/24/2023, Expires: Start: 12-24-2023 End: 12-25-2023 PT panel - Platelet poor plasma by Coagulation assay PROTHROMBIN TIME/PT Lab Routine Chronic myeloid leukemia (HCC) Expected: 12/24/2023, Expires: 12/25/2023 [facility] Work Phone: Comment on above: Expected: 12/24/2023, Expires: 4 Start: 12-24-2023 End: 12-25-2023 Triglyceride [Mass/volume] in Serum or Plasma TRIGLYCERIDES BLD Lab Routine Chronic myeloid leukemia (HCC) Expected: 12/24/2023, Expires: 12/25/2023 [facility] Work Phone: Comment on above: Expected: 12/24/2023, Expires: 4 Start: 12-24-2023 End: 12-25-2023 Urate [Mass/volume] in Serum or Plasma URIC ACID BLOOD Lab Routine Chronic myeloid leukemia (HCC) Expected: 12/24/2023, Expires: 12/25/2023 [facility] Work Phone: Comment on above: Expected: 12/24/2023, Expires: 4 Start: 12-24-2023 End: 12-25-2023 URINALYSIS, DIPSTICK ONLY URINALYSIS, DIPSTICK ONLY Lab Routine Chronic myeloid leukemia (HCC) Expected: 12/24/2023, Expires: 12/25/2023 [facility] Work Phone: Comment on above: Expected: 12/24/2023, Expires: 4 Start: 12-24-2023 End: 12-24-2023 Patient encounter procedure 12/24/2023 10:40 AM EDT Office Visit [facility]ascular [facility] [address] [place] [address] STUDY PT Vascular Medicine Comment on above: STUDY PT Start: 12-24-2023 End: 12-24-2023 Nursing evaluation of patient and report Hematology/Oncology Comment on above: STUDY PT Start: 12-24-2023 End: 12-24-2023 ambulatory [facility] [place] [address] Quintanilla Comment on above: STUDY PT Start: 12-09-2023 [facility] Start: 12-02-2023 End: 12-01-2024 Basic metabolic 2000 panel - Serum or Plasma [facility] Work Phone: Comment on above: Expected: 12/02/2023, Expires: 5 Start: 12-02-2023 End: 12-01-2024 CBC W Auto Differential panel - Blood [facility] Work Phone: Comment on above: Expected: 12/02/2023, Expires: Start: 12-02-2023 End: 12-01-2024 Protime & INR [facility] Work Phone: Comment on above: Expected: 12/02/2023, Expires: Start: 11-25-2023 Glaucoma screening Diabetes: Retinopathy Screening [facility] Start: 10-09-2023 End: 01-08-2024 MISC SEND OUT TST 1 MISC SEND OUT TST 1 Lab Routine CML (chronic myeloid leukemia) (HCC) Expected: 10/09/2023, Expires: 01/08/2024 [facility] Work Phone: Comment on above: Expected: 10/09/2023, Expires: Start: 10-03-2023 End: 10-03-2023 Admission to same day surgery center 10/03/2023 8:00 AM EDT - 10/03/2023 9:09 AM EDT Surgery [facility] [address] [place] [address] Rafael Maravilla MD [address], [address] [phone] DIAGNOSTIC BONE MARROW BIOPSY(IES) Angio Comment on above: DIAGNOSTIC BONE MARROW BIOPSY(IES) Start: 10-03-2023 End: 10-03-2023 Diagnostic bone marrow biopsies DIAGNOSTIC BONE MARROW BIOPSY(IES) CML (chronic myeloid leukemia) (HCC) 10/03/2023 8:00 AM EDT [facility] HB6 Start: 10-03-2023 Subsequent hospital visit by physician 10/03/2023 8:00 AM EDT Hospital Encounter [facility] [address] [place] [address] Rafael Maravilla MD [address], [address] [place] [id number] 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] Angio Comment on above: CML (chronic myeloid leukemia) (HCC) [C9 2.10] Start: 09-11-2023 End: 09-11-2023 Patient encounter procedure 09/11/2023 4:30 PM EDT Office Visit [facility] [address] [place] [phone] Nichole Desir MD [address] [place] [address] [facility] Start: 07-18-2023 Hemoglobin A1c measurement HbA1C [facility] Start: 07-18-2023 Hemoglobin A1c/Hemoglobin.total in Blood HbA1C [facility] Start: 07-01-2023 End: 07-01-2023 Patient encounter procedure 07/01/2023 9:00 AM EST Appointment [facility] - Cardiovascular [address] [place] [phone] Yan Durham MD [address] [place] [address] [facility] Start: 06-30-2023 End: 06-30-2024 Holter monitor study Holter monitor 24-48 hour Cardiac Services Routine Abnormal ECG LVH (left ventricular hypertrophy) Hypertrophic cardiomyopathy (CMS-HCC) Palpitations Expected: 06/30/2023, Expires: 06/30/2024 [employer] Comment on above: Expected: 06/30/2023, Expires: Start: 06-30-2023 End: 06-30-2024 MR Heart WO and W contrast IV MR cardiac for morphology with and without contrast Imaging Routine Abnormal ECG LVH (left ventricular hypertrophy) Hypertrophic cardiomyopathy (CMS-HCC) Expected: 06/30/2023, Expires: 06/30/2024 [facility] Comment on above: Expected: 06/30/2023, Expires: 5 Start: 06-09-2023 Behavioral Health Screening Behavioral Health Screening [facility] Start: 06-09-2023 Depression Assessment Depression Assessment [facility] Start: 04-24-2023 Hemoglobin A1c/Hemoglobin.total in Blood HBA1C [facility] Start: 04-18-2023 End: 07-18-2023 BCR/ABL1 P190 QUANTITATIVE PCR BONE MARROW BCR/ABL1 P190 QUANTITATIVE PCR BONE MARROW Lab Routine CML (chronic myeloid leukemia) (HCC) Expected: 04/18/2023, Expires: 07/18/2023 [facility] Work Phone: Comment on above: Expected: 04/18/2023, Expires: 4 Start: 04-18-2023 End: 07-18-2023 Comprehensive metabolic 2000 panel - Serum or Plasma [facility] Work Phone: Comment on above: Expected: 04/18/2023, Expires: 4 Start: 04-16-2023 End: 04-17-2023 Amylase [Enzymatic activity/volume] in Serum or Plasma AMYLASE BLD Lab Routine Chronic myeloid leukemia (HCC) Expected: 04/16/2023, Expires: 04/17/2023 [facility] Work Phone: Comment on above: Expected: 04/16/2023, Expires: 3 Start: 04-16-2023 End: 04-17-2023 aPTT in Platelet poor plasma by Coagulation assay ACTIVATED PTT Lab Routine Chronic myeloid leukemia (HCC) Expected: 04/16/2023, Expires: 04/17/2023 [facility] Work Phone: Comment on above: Expected: 04/16/2023, Expires: 3 Start: 04-16-2023 End: 04-17-2023 BCR/ABL1 P190 QUANTITATIVE PCR BONE MARROW BCR/ABL1 P190 QUANTITATIVE PCR BONE MARROW Lab Routine Chronic myeloid leukemia (HCC) Expected: 04/16/2023, Expires: 04/17/2023 [facility] Work Phone: Comment on above: Expected: 04/16/2023, Expires: 3 Start: 04-16-2023 End: 04-17-2023 BCR/ABL1 P210 QUANTITATIVE PCR BLOOD BCR/ABL1 P210 QUANTITATIVE PCR BLOOD Lab Routine Chronic myeloid leukemia (HCC) Expected: 04/16/2023, Expires: 04/17/2023 [facility] Work Phone: Comment on above: Expected: 04/16/2023, Expires: 3 Start: 04-16-2023 End: 04-17-2023 Bilirubin.conjugated [Mass/volume] in Serum or Plasma BILIRUBIN DIRECT BLD Lab Routine Chronic myeloid leukemia (HCC) Expected: 04/16/2023, Expires: 04/17/2023 [facility] Work Phone: Comment on above: Expected: 04/16/2023, Expires: 3 Start: 04-16-2023 End: 04-17-2023 CBC W Auto Differential panel - Blood CBC + DIFF Lab Routine Chronic myeloid leukemia (HCC) Expected: 04/16/2023, Expires: 04/17/2023 [facility] Work Phone: Comment on above: Expected: 04/16/2023, Expires: 3 Start: 04-16-2023 End: 04-17-2023 Cholesterol [Mass/volume] in Serum or Plasma CHOLESTEROL BLD Lab Routine Chronic myeloid leukemia (HCC) Expected: 04/16/2023, Expires: 04/17/2023 [facility] Work Phone: Comment on above: Expected: 04/16/2023, Expires: 3 Start: 04-16-2023 End: 04-17-2023 CLINICAL TRIAL DRAW CLINICAL TRIAL DRAW Lab Routine Chronic myeloid leukemia (HCC) Expected: 04/16/2023, Expires: 04/17/2023 [facility] Work Phone: Comment on above: Expected: 04/16/2023, Expires: 3 Start: 04-16-2023 End: 04-17-2023 Comprehensive metabolic 2000 panel - Serum or Plasma COMP METABOLIC PANEL Lab Routine Chronic myeloid leukemia (HCC) Expected: 04/16/2023, Expires: 04/17/2023 [facility] Work Phone: Comment on above: Expected: 04/16/2023, Expires: 3 Start: 04-16-2023 End: 04-17-2023 Creatine kinase [Enzymatic activity/volume] in Serum or Plasma CK CREATINE KINASE Lab Routine Chronic myeloid leukemia (HCC) Expected: 04/16/2023, Expires: 04/17/2023 [facility] Work Phone: Comment on above: Expected: 04/16/2023, Expires: 3 Start: 04-16-2023 End: 04-17-2023 ECG COMPLETE ECG COMPLETE ECG Routine Chronic myeloid leukemia (HCC) Expected: 04/16/2023, Expires: 04/17/2023 [facility] Work Phone: Comment on above: Expected: 04/16/2023, Expires: 3 Start: 04-16-2023 End: 04-17-2023 HIGH SENSITIVITY TROPONIN T HIGH SENSITIVITY TROPONIN T Lab Routine Chronic myeloid leukemia (HCC) Expected: 04/16/2023, Expires: 04/17/2023 [facility] Work Phone: Comment on above: Expected: 04/16/2023, Expires: Start: 04-16-2023 End: 04-17-2023 Lipase [Enzymatic activity/volume] in Serum or Plasma LIPASE BLD Lab Routine Chronic myeloid leukemia (HCC) Expected: 04/16/2023, Expires: 04/17/2023 [facility] Work Phone: Comment on above: Expected: 04/16/2023, Expires: 3 Start: 04-16-2023 End: 04-17-2023 Magnesium [Mass/volume] in Serum or Plasma MAGNESIUM BLD Lab Routine Chronic myeloid leukemia (HCC) Expected: 04/16/2023, Expires: 04/17/2023 [facility] Work Phone: Comment on above: Expected: 04/16/2023, Expires: 3 Start: 04-16-2023 End: 04-17-2023 Phosphate [Mass/volume] in Serum or Plasma PHOSPHORUS INORGANIC Lab Routine Chronic myeloid leukemia (HCC) Expected: 04/16/2023, Expires: 04/17/2023 [facility] Work Phone: Comment on above: Expected: 04/16/2023, Expires: 3 Start: 04-16-2023 End: 04-17-2023 PT panel - Platelet poor plasma by Coagulation assay PROTHROMBIN TIME/PT Lab Routine Chronic myeloid leukemia (HCC) Expected: 04/16/2023, Expires: 04/17/2023 [facility] Work Phone: Comment on above: Expected: 04/16/2023, Expires: 3 Start: 04-16-2023 End: 04-17-2023 Triglyceride [Mass/volume] in Serum or Plasma TRIGLYCERIDES BLD Lab Routine Chronic myeloid leukemia (HCC) Expected: 04/16/2023, Expires: 04/17/2023 [facility] Work Phone: Comment on above: Expected: 04/16/2023, Expires: 3 Start: 04-16-2023 End: 04-17-2023 Urate [Mass/volume] in Serum or Plasma URIC ACID BLOOD Lab Routine Chronic myeloid leukemia (HCC) Expected: 04/16/2023, Expires: 04/17/2023 [facility] Work Phone: Comment on above: Expected: 04/16/2023, Expires: Start: 04-16-2023 End: 04-17-2023 URINALYSIS, DIPSTICK ONLY URINALYSIS, DIPSTICK ONLY Lab Routine Chronic myeloid leukemia (HCC) Expected: 04/16/2023, Expires: 04/17/2023 [facility] Work Phone: Comment on above: Expected: 04/16/2023, Expires: 3 Start: 03-22-2023 Hepatitis B screening URINE ALBUMIN:CREATININE RATIO [facility] Start: 03-22-2023 Hepatitis B surface antibody level LDL CHOLESTEROL [facility] Start: 02-07-2023 Influenza vaccination [facility] Start: 01-22-2023 End: 01-23-2023 Amylase [Enzymatic activity/volume] in Serum or Plasma AMYLASE BLD Lab Routine CML (chronic myeloid leukemia) (HCC) Expected: 01/22/2023, Expires: 01/23/2023 [facility] Work Phone: Comment on above: Expected: 01/22/2023, Expires: 3 Start: 01-22-2023 End: 01-23-2023 aPTT in Platelet poor plasma by Coagulation assay ACTIVATED PTT Lab Routine CML (chronic myeloid leukemia) (HCC) Expected: 01/22/2023, Expires: 01/23/2023 [facility] Work Phone: Comment on above: Expected: 01/22/2023, Expires: Start: 01-22-2023 End: 01-23-2023 BCR/ABL1 P190 QUANTITATIVE PCR BLOOD BCR/ABL1 P190 QUANTITATIVE PCR BLOOD Lab Routine CML (chronic myeloid leukemia) ([facility]) Expected: 01/22/2023, Expires: 01/23/2023 [facility] Work Phone: Comment on above: Expected: 01/22/2023, Expires: Start: 01-22-2023 End: 01-23-2023 BCR/ABL1 P210 QUANTITATIVE PCR BLOOD BCR/ABL1 P210 QUANTITATIVE PCR BLOOD Lab Routine CML (chronic myeloid leukemia) ([facility]) Expected: 01/22/2023, Expires: 01/23/2023 [facility] Work Phone: Comment on above: Expected: 01/22/2023, Expires: 3 Start: 01-22-2023 End: 01-23-2023 Bilirubin.conjugated [Mass/volume] in Serum or Plasma BILIRUBIN DIRECT BLD Lab Routine CML (chronic myeloid leukemia) ([facility]) Expected: 01/22/2023, Expires: 01/23/2023 [facility] Work Phone: Comment on above: Expected: 01/22/2023, Expires: 3 Start: 01-22-2023 End: 01-23-2023 CBC W Auto Differential panel - Blood CBC + DIFF Lab Routine CML (chronic myeloid leukemia) ([facility]) Expected: 01/22/2023, Expires: 01/23/2023 [facility] Work Phone: Comment on above: Expected: 01/22/2023, Expires: 3 Start: 01-22-2023 End: 01-23-2023 Cholesterol [Mass/volume] in Serum or Plasma CHOLESTEROL BLD Lab Routine CML (chronic myeloid leukemia) ([facility]) Expected: 01/22/2023, Expires: 01/23/2023 [facility] Work Phone: Comment on above: Expected: 01/22/2023, Expires: 3 Start: 01-22-2023 End: 01-23-2023 CK TOTAL AND CK-MB CK TOTAL AND CK-MB Lab Routine CML (chronic myeloid leukemia) ([facility]) Expected: 01/22/2023, Expires: 01/23/2023 [facility] Work Phone: Comment on above: Expected: 01/22/2023, Expires: 3 Start: 01-22-2023 End: 01-23-2023 CLINICAL TRIAL DRAW CLINICAL TRIAL DRAW Lab Routine CML (chronic myeloid leukemia) ([facility]) Expected: 01/22/2023, Expires: 01/23/2023 [facility] Work Phone: Comment on above: Expected: 01/22/2023, Expires: 3 Start: 01-22-2023 End: 01-23-2023 Comprehensive metabolic 2000 panel - Serum or Plasma COMP METABOLIC PANEL Lab Routine CML (chronic myeloid leukemia) ([facility]) Expected: 01/22/2023, Expires: 01/23/2023 [facility] Work Phone: Comment on above: Expected: 01/22/2023, Expires: 3 Start: 01-22-2023 End: 01-23-2023 Hemoglobin A1c in Blood HGB A1C Lab Routine CML (chronic myeloid leukemia) ([facility]) Expected: 01/22/2023, Expires: 01/23/2023 [facility] Work Phone: Comment on above: Expected: 01/22/2023, Expires: 3 Start: 01-22-2023 End: 01-23-2023 HIGH SENSITIVITY TROPONIN T HIGH SENSITIVITY TROPONIN T Lab Routine CML (chronic myeloid leukemia) ([facility]) Expected: 01/22/2023, Expires: 01/23/2023 [facility] Work Phone: Comment on above: Expected: 01/22/2023, Expires: 3 Start: 01-22-2023 End: 01-23-2023 Lipase [Enzymatic activity/volume] in Serum or Plasma LIPASE BLD Lab Routine CML (chronic myeloid leukemia) ([facility]) Expected: 01/22/2023, Expires: 01/23/2023 [facility] Work Phone: Comment on above: Expected: 01/22/2023, Expires: Start: 01-22-2023 End: 01-23-2023 Magnesium [Mass/volume] in Serum or Plasma MAGNESIUM BLD Lab Routine CML (chronic myeloid leukemia) ([facility]) Expected: 01/22/2023, Expires: 01/23/2023 [facility] Work Phone: Comment on above: Expected: 01/22/2023, Expires: Start: 01-22-2023 End: 01-23-2023 Phosphate [Mass/volume] in Serum or Plasma PHOSPHORUS INORGANIC Lab Routine CML (chronic myeloid leukemia) ([facility]) Expected: 01/22/2023, Expires: 01/23/2023 [facility] Work Phone: Comment on above: Expected: 01/22/2023, Expires: Start: 01-22-2023 End: 01-23-2023 PT panel - Platelet poor plasma by Coagulation assay PROTHROMBIN TIME/PT Lab Routine CML (chronic myeloid leukemia) ([facility]) Expected: 01/22/2023, Expires: 01/23/2023 [facility] Work Phone: Comment on above: Expected: 01/22/2023, Expires: 3 Start: 01-22-2023 End: 01-23-2023 Triglyceride [Mass/volume] in Serum or Plasma TRIGLYCERIDES BLD Lab Routine CML (chronic myeloid leukemia) ([facility]) Expected: 01/22/2023, Expires: 01/23/2023 [facility] Work Phone: Comment on above: Expected: 01/22/2023, Expires: Start: 01-22-2023 End: 01-23-2023 Urate [Mass/volume] in Serum or Plasma URIC ACID BLOOD Lab Routine CML (chronic myeloid leukemia) (HCC) Expected: 01/22/2023, Expires: 01/23/2023 [facility] Work Phone: Comment on above: Expected: 01/22/2023, Expires: 3 Start: 01-22-2023 End: 01-23-2023 URINALYSIS, DIPSTICK ONLY URINALYSIS, DIPSTICK ONLY Lab Routine CML (chronic myeloid leukemia) ([facility]) Expected: 01/22/2023, Expires: 01/23/2023 [facility] Work Phone: Comment on above: Expected: 01/22/2023, Expires: Start: 01-15-2023 Hemoglobin A1c/Hemoglobin.total in Blood HBA1C [facility] Start: 10-28-2022 End: 10-29-2022 Amylase [Enzymatic activity/volume] in Serum or Plasma AMYLASE BLD Lab STAT Chronic myeloid leukemia (HCC) Expected: 10/28/2022, Expires: 10/29/2022 [facility] Work Phone: Comment on above: Expected: 10/28/2022, Expires: 3 Start: 10-28-2022 End: 10-29-2022 aPTT in Platelet poor plasma by Coagulation assay ACTIVATED PTT Lab STAT Chronic myeloid leukemia (HCC) Expected: 10/28/2022, Expires: 10/29/2022 [facility] Work Phone: Comment on above: Expected: 10/28/2022, Expires: 3 Start: 10-28-2022 End: 10-29-2022 Bilirubin.conjugated [Mass/volume] in Serum or Plasma BILIRUBIN DIRECT BLD Lab STAT Chronic myeloid leukemia (HCC) Expected: 10/28/2022, Expires: 10/29/2022 [facility] Work Phone: Comment on above: Expected: 10/28/2022, Expires: Start: 10-28-2022 End: 10-29-2022 C reactive protein [Mass/volume] in Serum or Plasma C-REACTIVE PROTEIN (CRP) Lab STAT Chronic myeloid leukemia (HCC) Expected: 10/28/2022, Expires: 10/29/2022 [facility] Work Phone: Comment on above: Expected: 10/28/2022, Expires: Start: 10-28-2022 End: 10-29-2022 CBC W Auto Differential panel - Blood CBC + DIFF Lab STAT Chronic myeloid leukemia (HCC) Expected: 10/28/2022, Expires: 10/29/2022 [facility] Work Phone: Comment on above: Expected: 10/28/2022, Expires: Start: 10-28-2022 End: 10-29-2022 Cholesterol [Mass/volume] in Serum or Plasma CHOLESTEROL BLD Lab STAT Chronic myeloid leukemia (HCC) Expected: 10/28/2022, Expires: 10/29/2022 [facility] Work Phone: Comment on above: Expected: 10/28/2022, Expires: 3 Start: 10-28-2022 End: 10-29-2022 CLINICAL TRIAL DRAW CLINICAL TRIAL DRAW Lab STAT Chronic myeloid leukemia (HCC) Expected: 10/28/2022, Expires: 10/29/2022 [facility] Work Phone: Comment on above: Expected: 10/28/2022, Expires: Start: 10-28-2022 End: 10-29-2022 Comprehensive metabolic 2000 panel - Serum or Plasma COMP METABOLIC PANEL Lab STAT Chronic myeloid leukemia (HCC) Expected: 10/28/2022, Expires: 10/29/2022 [facility] Work Phone: Comment on above: Expected: 10/28/2022, Expires: 3 Start: 10-28-2022 End: 10-29-2022 Lipase [Enzymatic activity/volume] in Serum or Plasma LIPASE BLD Lab STAT Chronic myeloid leukemia (HCC) Expected: 10/28/2022, Expires: 10/29/2022 [facility] Work Phone: Comment on above: Expected: 10/28/2022, Expires: 3 Start: 10-28-2022 End: 10-29-2022 Magnesium [Mass/volume] in Serum or Plasma MAGNESIUM BLD Lab STAT Chronic myeloid leukemia (HCC) Expected: 10/28/2022, Expires: 10/29/2022 [facility] Work Phone: Comment on above: Expected: 10/28/2022, Expires: 3 Start: 10-28-2022 End: 10-29-2022 Phosphate [Mass/volume] in Serum or Plasma PHOSPHORUS INORGANIC Lab STAT Chronic myeloid leukemia (HCC) Expected: 10/28/2022, Expires: 10/29/2022 [facility] Work Phone: Comment on above: Expected: 10/28/2022, Expires: 3 Start: 10-28-2022 End: 10-29-2022 PT panel - Platelet poor plasma by Coagulation assay PROTHROMBIN TIME/PT Lab STAT Chronic myeloid leukemia (HCC) Expected: 10/28/2022, Expires: 10/29/2022 [facility] Work Phone: Comment on above: Expected: 10/28/2022, Expires: 3 Start: 10-28-2022 End: 10-29-2022 Triglyceride [Mass/volume] in Serum or Plasma TRIGLYCERIDES BLD Lab STAT Chronic myeloid leukemia (HCC) Expected: 10/28/2022, Expires: 10/29/2022 [facility] Work Phone: Comment on above: Expected: 10/28/2022, Expires: 3 Start: 10-28-2022 End: 10-29-2022 Troponin I.cardiac [Mass/volume] in Serum or Plasma TROPONIN (POCT) Lab STAT Chronic myeloid leukemia (HCC) Expected: 10/28/2022, Expires: 10/29/2022 [facility] Work Phone: Comment on above: Expected: 10/28/2022, Expires: 3 Start: 10-28-2022 End: 10-29-2022 Urate [Mass/volume] in Serum or Plasma URIC ACID BLOOD Lab STAT Chronic myeloid leukemia (HCC) Expected: 10/28/2022, Expires: 10/29/2022 [facility] Work Phone: Comment on above: Expected: 10/28/2022, Expires: 3 Start: 10-28-2022 End: 10-29-2022 URINALYSIS, DIPSTICK ONLY URINALYSIS, DIPSTICK ONLY Lab STAT Chronic myeloid leukemia (HCC) Expected: 10/28/2022, Expires: 10/29/2022 [facility] Work Phone: Comment on above: Expected: 10/28/2022, Expires: 3 Start: 10-12-2022 Hemoglobin A1c/Hemoglobin.total in Blood HBA1C [facility] Start: 08-05-2022 End: 08-06-2022 Amylase [Enzymatic activity/volume] in Serum or Plasma AMYLASE BLD Lab STAT Chronic myeloid leukemia (HCC) Expected: 08/05/2022, Expires: 08/06/2022 [facility] Work Phone: Comment on above: Expected: 08/05/2022, Expires: 3 Start: 08-05-2022 End: 08-06-2022 aPTT in Platelet poor plasma by Coagulation assay ACTIVATED PTT Lab STAT Chronic myeloid leukemia (HCC) Expected: 08/05/2022, Expires: 08/06/2022 [facility] Work Phone: Comment on above: Expected: 08/05/2022, Expires: 3 Start: 08-05-2022 End: 10-05-2022 BCR/ABL1 P210 QUANTITATIVE PCR BLOOD BCR/ABL1 P210 QUANTITATIVE PCR BLOOD Lab Routine CML (chronic myeloid leukemia) ([facility]) Expected: 08/05/2022, Expires: 10/05/2022 [facility] Work Phone: Comment on above: Expected: 08/05/2022, Expires: 3 Start: 08-05-2022 End: 08-06-2022 Bilirubin.conjugated [Mass/volume] in Serum or Plasma BILIRUBIN DIRECT BLD Lab STAT Chronic myeloid leukemia (HCC) Expected: 08/05/2022, Expires: 08/06/2022 [facility] Work Phone: Comment on above: Expected: 08/05/2022, Expires: 3 Start: 08-05-2022 End: 08-06-2022 C reactive protein [Mass/volume] in Serum or Plasma C-REACTIVE PROTEIN (CRP) Lab STAT Chronic myeloid leukemia (HCC) Expected: 08/05/2022, Expires: 08/06/2022 [facility] Work Phone: Comment on above: Expected: 08/05/2022, Expires: 3 Start: 08-05-2022 End: 08-06-2022 CBC W Auto Differential panel - Blood CBC + DIFF Lab STAT Chronic myeloid leukemia (HCC) Expected: 08/05/2022, Expires: 08/06/2022 [facility] Work Phone: Comment on above: Expected: 08/05/2022, Expires: 3 Start: 08-05-2022 End: 08-06-2022 Cholesterol [Mass/volume] in Serum or Plasma CHOLESTEROL BLD Lab STAT Chronic myeloid leukemia (HCC) Expected: 08/05/2022, Expires: 08/06/2022 [facility] Work Phone: Comment on above: Expected: 08/05/2022, Expires: 3 Start: 08-05-2022 End: 08-06-2022 CLINICAL TRIAL DRAW CLINICAL TRIAL DRAW Lab STAT Chronic myeloid leukemia (HCC) Expected: 08/05/2022, Expires: 08/06/2022 [facility] Work Phone: Comment on above: Expected: 08/05/2022, Expires: 3 Start: 08-05-2022 End: 08-06-2022 Comprehensive metabolic 2000 panel - Serum or Plasma COMP METABOLIC PANEL Lab STAT Chronic myeloid leukemia (HCC) Expected: 08/05/2022, Expires: 08/06/2022 [facility] Work Phone: Comment on above: Expected: 08/05/2022, Expires: 3 Start: 08-05-2022 End: 10-05-2022 HIGH SENSITIVITY TROPONIN T HIGH SENSITIVITY TROPONIN T Lab Routine CML (chronic myeloid leukemia) (HCC) Expected: 08/05/2022, Expires: 10/05/2022 [facility] Work Phone: Comment on above: Expected: 08/05/2022, Expires: 3 Start: 08-05-2022 End: 08-06-2022 Lipase [Enzymatic activity/volume] in Serum or Plasma LIPASE BLD Lab STAT Chronic myeloid leukemia (HCC) Expected: 08/05/2022, Expires: 08/06/2022 [facility] Work Phone: Comment on above: Expected: 08/05/2022, Expires: 3 Start: 08-05-2022 End: 08-06-2022 Magnesium [Mass/volume] in Serum or Plasma MAGNESIUM BLD Lab STAT Chronic myeloid leukemia (HCC) Expected: 08/05/2022, Expires: 08/06/2022 [facility] Work Phone: Comment on above: Expected: 08/05/2022, Expires: 3 Start: 08-05-2022 End: 08-06-2022 Phosphate [Mass/volume] in Serum or Plasma PHOSPHORUS INORGANIC Lab STAT Chronic myeloid leukemia (HCC) Expected: 08/05/2022, Expires: 08/06/2022 [facility] Work Phone: Comment on above: Expected: 08/05/2022, Expires: 3 Start: 08-05-2022 End: 08-06-2022 PT panel - Platelet poor plasma by Coagulation assay PROTHROMBIN TIME/PT Lab STAT Chronic myeloid leukemia (HCC) Expected: 08/05/2022, Expires: 08/06/2022 [facility] Work Phone: Comment on above: Expected: 08/05/2022, Expires: 3 Start: 08-05-2022 End: 08-06-2022 Triglyceride [Mass/volume] in Serum or Plasma TRIGLYCERIDES BLD Lab STAT Chronic myeloid leukemia (HCC) Expected: 08/05/2022, Expires: 08/06/2022 [facility] Work Phone: Comment on above: Expected: 08/05/2022, Expires: 3 Start: 08-05-2022 End: 08-06-2022 Troponin I.cardiac [Mass/volume] in Serum or Plasma TROPONIN (POCT) Lab STAT Chronic myeloid leukemia (HCC) Expected: 08/05/2022, Expires: 08/06/2022 [facility] Work Phone: Comment on above: Expected: 08/05/2022, Expires: 3 Start: 08-05-2022 End: 08-06-2022 Urate [Mass/volume] in Serum or Plasma URIC ACID BLOOD Lab STAT Chronic myeloid leukemia (HCC) Expected: 08/05/2022, Expires: 08/06/2022 [facility] Work Phone: Comment on above: Expected: 08/05/2022, Expires: 3 Start: 08-05-2022 End: 08-06-2022 URINALYSIS, DIPSTICK ONLY URINALYSIS, DIPSTICK ONLY Lab STAT Chronic myeloid leukemia (HCC) Expected: 08/05/2022, Expires: 08/06/2022 [facility] Work Phone: Comment on above: Expected: 08/05/2022, Expires: 3 Start: 06-11-2022 Adult depression screening assessment DEPRESSION SCREENING [facility] Start: 06-09-2022 DEPRESSION ASSESSMENT DEPRESSION ASSESSMENT [facility] Start: 03-19-2022 End: 05-19-2022 ALBUMIN/CREAT RATIO RND UR ALBUMIN/CREAT RATIO RND UR Lab Routine Uncontrolled type 2 diabetes mellitus with hyperglycemia (HCC) Expected: 03/19/2022, Expires: 05/19/2022 [facility] Work Phone: Comment on above: Expected: 03/19/2022, Expires: 2 Start: 03-19-2022 End: 05-19-2022 C peptide [Mass/volume] in Serum or Plasma C-PEPTIDE BLD Lab Routine Uncontrolled type 2 diabetes mellitus with hyperglycemia (HCC) Expected: 03/19/2022, Expires: 05/19/2022 [facility] Work Phone: Comment on above: Expected: 03/19/2022, Expires: 2 Start: 03-19-2022 End: 05-19-2022 Cholesterol in LDL [Mass/volume] in Serum or Plasma LDL CHOLESTEROL DIR Lab Routine Uncontrolled type 2 diabetes mellitus with hyperglycemia (HCC) Expected: 03/19/2022, Expires: 05/19/2022 [facility] Work Phone: Comment on above: Expected: 03/19/2022, Expires: 2 Start: 03-19-2022 End: 05-19-2022 Fasting glucose [Mass/volume] in Serum or Plasma GLUCOSE FASTING BLD Lab Routine Uncontrolled type 2 diabetes mellitus with hyperglycemia (HCC) Expected: 03/19/2022, Expires: 05/19/2022 [facility] Work Phone: Comment on above: Expected: 03/19/2022, Expires: 2 Start: 03-19-2022 End: 05-19-2022 Lipid 1996 panel - Serum or Plasma LIPID PANEL BASIC Lab Routine Uncontrolled type 2 diabetes mellitus with hyperglycemia (HCC) Expected: 03/19/2022, Expires: 05/19/2022 [facility] Work Phone: Comment on above: Expected: 03/19/2022, Expires: 2 Start: 02-18-2022 End: 02-19-2022 Amylase [Enzymatic activity/volume] in Serum or Plasma AMYLASE BLD Lab STAT CML (chronic myeloid leukemia) (HCC) Expected: 02/18/2022, Expires: 02/19/2022 [facility] Work Phone: Comment on above: Expected: 02/18/2022, Expires: 2 Start: 02-18-2022 End: 02-19-2022 aPTT in Platelet poor plasma by Coagulation assay ACTIVATED PTT Lab STAT CML (chronic myeloid leukemia) ([facility]) Expected: 02/18/2022, Expires: 02/19/2022 [facility] Work Phone: Comment on above: Expected: 02/18/2022, Expires: 2 Start: 02-18-2022 End: 02-19-2022 Bilirubin.conjugated [Mass/volume] in Serum or Plasma BILIRUBIN DIRECT BLD Lab STAT CML (chronic myeloid leukemia) ([facility]) Expected: 02/18/2022, Expires: 02/19/2022 [facility] Work Phone: Comment on above: Expected: 02/18/2022, Expires: 2 Start: 02-18-2022 End: 02-19-2022 CBC W Auto Differential panel - Blood CBC + DIFF Lab STAT CML (chronic myeloid leukemia) ([facility]) Expected: 02/18/2022, Expires: 02/19/2022 [facility] Work Phone: Comment on above: Expected: 02/18/2022, Expires: 2 Start: 02-18-2022 End: 02-19-2022 Cholesterol [Mass/volume] in Serum or Plasma CHOLESTEROL BLD Lab STAT CML (chronic myeloid leukemia) ([facility]) Expected: 02/18/2022, Expires: 02/19/2022 [facility] Work Phone: Comment on above: Expected: 02/18/2022, Expires: 2 Start: 02-18-2022 End: 02-19-2022 CLINICAL TRIAL DRAW CLINICAL TRIAL DRAW Lab STAT CML (chronic myeloid leukemia) ([facility]) Expected: 02/18/2022, Expires: 02/19/2022 [facility] Work Phone: Comment on above: Expected: 02/18/2022, Expires: 2 Start: 02-18-2022 End: 02-19-2022 Comprehensive metabolic 2000 panel - Serum or Plasma COMP METABOLIC PANEL Lab STAT CML (chronic myeloid leukemia) ([facility]) Expected: 02/18/2022, Expires: 02/19/2022 [facility] Work Phone: Comment on above: Expected: 02/18/2022, Expires: 2 Start: 02-18-2022 End: 02-19-2022 Creatine kinase [Enzymatic activity/volume] in Serum or Plasma CK CREATINE KINASE Lab STAT CML (chronic myeloid leukemia) ([facility]) Expected: 02/18/2022, Expires: 02/19/2022 [facility] Work Phone: Comment on above: Expected: 02/18/2022, Expires: 2 Start: 02-18-2022 End: 02-19-2022 HDL CHOLESTEROL BLD HDL CHOLESTEROL BLD Lab STAT CML (chronic myeloid leukemia) ([facility]) Expected: 02/18/2022, Expires: 02/19/2022 [facility] Work Phone: Comment on above: Expected: 02/18/2022, Expires: 2 Start: 02-18-2022 End: 02-19-2022 Lipase [Enzymatic activity/volume] in Serum or Plasma LIPASE BLD Lab STAT CML (chronic myeloid leukemia) ([facility]) Expected: 02/18/2022, Expires: 02/19/2022 [facility] Work Phone: Comment on above: Expected: 02/18/2022, Expires: 2 Start: 02-18-2022 End: 02-19-2022 Magnesium [Mass/volume] in Serum or Plasma MAGNESIUM BLD Lab STAT CML (chronic myeloid leukemia) ([facility]) Expected: 02/18/2022, Expires: 02/19/2022 [facility] Work Phone: Comment on above: Expected: 02/18/2022, Expires: 2 Start: 02-18-2022 End: 02-19-2022 Phosphate [Mass/volume] in Serum or Plasma PHOSPHORUS INORGANIC Lab STAT CML (chronic myeloid leukemia) ([facility]) Expected: 02/18/2022, Expires: 02/19/2022 [facility] Work Phone: Comment on above: Expected: 02/18/2022, Expires: 2 Start: 02-18-2022 End: 02-19-2022 PT panel - Platelet poor plasma by Coagulation assay PROTHROMBIN TIME/PT Lab STAT CML (chronic myeloid leukemia) ([facility]) Expected: 02/18/2022, Expires: 02/19/2022 [facility] Work Phone: Comment on above: Expected: 02/18/2022, Expires: 2 Start: 02-18-2022 End: 02-19-2022 Triglyceride [Mass/volume] in Serum or Plasma TRIGLYCERIDES BLD Lab STAT CML (chronic myeloid leukemia) ([facility]) Expected: 02/18/2022, Expires: 02/19/2022 [facility] Work Phone: Comment on above: Expected: 02/18/2022, Expires: 2 Start: 02-18-2022 End: 02-19-2022 TROPONIN T TROPONIN T Lab STAT CML (chronic myeloid leukemia) ([facility]) Expected: 02/18/2022, Expires: 02/19/2022 [facility] Work Phone: Comment on above: Expected: 02/18/2022, Expires: 2 Start: 02-18-2022 End: 02-19-2022 Urate [Mass/volume] in Serum or Plasma URIC ACID BLOOD Lab STAT CML (chronic myeloid leukemia) (HCC) Expected: 02/18/2022, Expires: 02/19/2022 [facility] Work Phone: Comment on above: Expected: 02/18/2022, Expires: 2 Start: 02-18-2022 End: 02-19-2022 URINALYSIS, DIPSTICK ONLY URINALYSIS, DIPSTICK ONLY Lab STAT CML (chronic myeloid leukemia) ([facility]) Expected: 02/18/2022, Expires: 02/19/2022 [facility] Work Phone: Comment on above: Expected: 02/18/2022, Expires: 2 Start: 02-15-2022 End: 04-17-2022 BCR/ABL1 P190 QUANTITATIVE PCR BLOOD BCR/ABL1 P190 QUANTITATIVE PCR BLOOD Lab Routine CML (chronic myeloid leukemia) ([facility]) Expected: 02/15/2022, Expires: 04/17/2022 [facility] Work Phone: Comment on above: Expected: 02/15/2022, Expires: 2 Start: 02-15-2022 End: 04-17-2022 BCR/ABL1 P210 QUANTITATIVE PCR BLOOD BCR/ABL1 P210 QUANTITATIVE PCR BLOOD Lab Routine CML (chronic myeloid leukemia) ([facility]) Expected: 02/15/2022, Expires: 04/17/2022 [facility] Work Phone: Comment on above: Expected: 02/15/2022, Expires: 2 Start: 02-07-2022 Influenza vaccination [facility] Start: 12-04-2021 End: 02-03-2022 BCR/ABL1 P210 QUANTITATIVE PCR BLOOD BCR/ABL1 P210 QUANTITATIVE PCR BLOOD Lab Routine CML (chronic myelocytic leukemia) ([facility]) Expected: 12/04/2021, Expires: 02/03/2022 [facility] Work Phone: Comment on above: Expected: 12/04/2021, Expires: 2 Start: 11-26-2021 End: 11-27-2021 Amylase [Enzymatic activity/volume] in Serum or Plasma AMYLASE BLD Lab STAT CML (chronic myeloid leukemia) ([facility]) Expected: 11/26/2021, Expires: 11/27/2021 [facility] Work Phone: Comment on above: Expected: 11/26/2021, Expires: 2 Start: 11-26-2021 End: 11-27-2021 aPTT in Platelet poor plasma by Coagulation assay ACTIVATED PTT Lab STAT CML (chronic myeloid leukemia) ([facility]) Expected: 11/26/2021, Expires: 11/27/2021 [facility] Work Phone: Comment on above: Expected: 11/26/2021, Expires: 2 Start: 11-26-2021 End: 11-27-2021 Bilirubin.conjugated [Mass/volume] in Serum or Plasma BILIRUBIN DIRECT BLD Lab STAT CML (chronic myeloid leukemia) (HCC) Expected: 11/26/2021, Expires: 11/27/2021 [facility] Work Phone: Comment on above: Expected: 11/26/2021, Expires: 2 Start: 11-26-2021 End: 11-27-2021 CBC W Auto Differential panel - Blood CBC + DIFF Lab STAT CML (chronic myeloid leukemia) ([facility]) Expected: 11/26/2021, Expires: 11/27/2021 [facility] Work Phone: Comment on above: Expected: 11/26/2021, Expires: 2 Start: 11-26-2021 End: 11-27-2021 Cholesterol [Mass/volume] in Serum or Plasma CHOLESTEROL BLD Lab STAT CML (chronic myeloid leukemia) (HCC) Expected: 11/26/2021, Expires: 11/27/2021 [facility] Work Phone: Comment on above: Expected: 11/26/2021, Expires: 2 Start: 11-26-2021 End: 11-27-2021 CK CREATINE KINASE CK CREATINE KINASE Lab STAT CML (chronic myeloid leukemia) ([facility]) Expected: 11/26/2021, Expires: 11/27/2021 [facility] Work Phone: Comment on above: Expected: 11/26/2021, Expires: 2 Start: 11-26-2021 End: 11-27-2021 CLINICAL TRIAL DRAW CLINICAL TRIAL DRAW Lab STAT CML (chronic myeloid leukemia) (HCC) Expected: 11/26/2021, Expires: 11/27/2021 [facility] Work Phone: Comment on above: Expected: 11/26/2021, Expires: 2 Start: 11-26-2021 End: 11-27-2021 Comprehensive metabolic 2000 panel - Serum or Plasma COMP METABOLIC PANEL Lab STAT CML (chronic myeloid leukemia) ([facility]) Expected: 11/26/2021, Expires: 11/27/2021 [facility] Work Phone: Comment on above: Expected: 11/26/2021, Expires: 2 Start: 11-26-2021 End: 11-27-2021 HDL CHOLESTEROL BLD HDL CHOLESTEROL BLD Lab STAT CML (chronic myeloid leukemia) ([facility]) Expected: 11/26/2021, Expires: 11/27/2021 [facility] Work Phone: Comment on above: Expected: 11/26/2021, Expires: 2 Start: 11-26-2021 End: 11-27-2021 Lipase [Enzymatic activity/volume] in Serum or Plasma LIPASE BLD Lab STAT CML (chronic myeloid leukemia) ([facility]) Expected: 11/26/2021, Expires: 11/27/2021 [facility] Work Phone: Comment on above: Expected: 11/26/2021, Expires: 2 Start: 11-26-2021 End: 11-27-2021 Magnesium [Mass/volume] in Serum or Plasma MAGNESIUM BLD Lab STAT CML (chronic myeloid leukemia) ([facility]) Expected: 11/26/2021, Expires: 11/27/2021 [facility] Work Phone: Comment on above: Expected: 11/26/2021, Expires: 2 Start: 11-26-2021 End: 11-27-2021 Phosphate [Mass/volume] in Serum or Plasma PHOSPHORUS INORGANIC Lab STAT CML (chronic myeloid leukemia) ([facility]) Expected: 11/26/2021, Expires: 11/27/2021 [facility] Work Phone: Comment on above: Expected: 11/26/2021, Expires: 2 Start: 11-26-2021 End: 11-27-2021 PT panel - Platelet poor plasma by Coagulation assay PROTHROMBIN TIME/PT Lab STAT CML (chronic myeloid leukemia) ([facility]) Expected: 11/26/2021, Expires: 11/27/2021 [facility] Work Phone: Comment on above: Expected: 11/26/2021, Expires: 2 Start: 11-26-2021 End: 11-27-2021 Triglyceride [Mass/volume] in Serum or Plasma TRIGLYCERIDES BLD Lab STAT CML (chronic myeloid leukemia) (HCC) Expected: 11/26/2021, Expires: 11/27/2021 [facility] Work Phone: Comment on above: Expected: 11/26/2021, Expires: 2 Start: 11-26-2021 End: 11-27-2021 TROPONIN T TROPONIN T Lab STAT CML (chronic myeloid leukemia) (HCC) Expected: 11/26/2021, Expires: 11/27/2021 [facility] Work Phone: Comment on above: Expected: 11/26/2021, Expires: 2 Start: 11-26-2021 End: 11-27-2021 Urate [Mass/volume] in Serum or Plasma URIC ACID BLOOD Lab STAT CML (chronic myeloid leukemia) ([facility]) Expected: 11/26/2021, Expires: 11/27/2021 [facility] Work Phone: Comment on above: Expected: 11/26/2021, Expires: 2 Start: 11-26-2021 End: 11-27-2021 URINALYSIS, DIPSTICK ONLY URINALYSIS, DIPSTICK ONLY Lab STAT CML (chronic myeloid leukemia) ([facility]) Expected: 11/26/2021, Expires: 11/27/2021 [facility] Work Phone: Comment on above: Expected: 11/26/2021, Expires: 2 Start: 06-23-2021 COLORECTAL CANCER SCREENING COLORECTAL CANCER SCREENING [facility] Start: 06-23-2021 FECAL OCCULT BLOOD FECAL OCCULT BLOOD [facility] Start: 06-23-2021 Screening for malignant neoplasm of colon [facility] Start: 06-09-2021 DEPRESSION ASSESSMENT DEPRESSION ASSESSMENT [facility] Start: 02-07-2021 Influenza vaccination INFLUENZA (#1) [facility] Start: 12-16-2020 DTaP,Tdap and Td Vaccines (2 - Td or Tdap) DTaP,Tdap and Td Vaccines (2 - Td or Tdap) [facility] Start: 12-16-2020 Urine microalbumin profile [facility] Start: 10-17-2020 COVID-19 VACCINE (3 - Pfizer risk 4-dose series) COVID-19 VACCINE (3 - Pfizer risk 4-dose series) [facility] Start: 10-17-2020 COVID-19 VACCINE (3 - Pfizer risk series) COVID-19 VACCINE (3 - Pfizer risk series) [facility] Start: 2018 SHINGRIX VACCINE (1 of 2) SHINGRIX VACCINE (1 of 2) [facility] Start: 05-20-2018 PNEUMOCOCCAL (2 - PPSV23 if available, else PCV20) PNEUMOCOCCAL (2 - PPSV23 if available, else PCV20) [facility] Start: 05-20-2018 PNEUMOCOCCAL (2 - PPSV23 or PCV20) PNEUMOCOCCAL (2 - PPSV23 or PCV20) [facility] Start: 05-05-2018 Glaucoma screening Dilated Retinal Exam [facility] Start: 05-05-2018 Hepatitis C antibody, confirmatory test DILATED RETINAL EXAM [facility] Start: 07-15-2017 PNEUMOCOCCAL (2 - PPSV23 if available, else PCV20) PNEUMOCOCCAL (2 - PPSV23 if available, else PCV20) [facility] Start: 07-15-2017 PNEUMOCOCCAL (2 - PPSV23 or PCV20) PNEUMOCOCCAL (2 - PPSV23 or PCV20) [facility] Start: 07-15-2017 Pneumococcal vaccination [facility] Start: 07-15-2017 Pneumococcal Vaccine: 50+ (2 of 2 - PPSV23) Pneumococcal Vaccine: 50+ (2 of 2 - PPSV23) [facility] Start: 2013 COLOGUARD (FIT-DNA) COLOGUARD (FIT-DNA) [facility] Start: 2013 Colonoscopy COLONOSCOPY [facility] Start: [address] COLONOGRAPHY [facility] Start: 2013 Screening for malignant neoplasm of colon [facility] Start: 2013 SIGMOIDOSCOPY SIGMOIDOSCOPY [facility] Start: 09-26-1987 Administration of varicella zoster vaccine Zoster (Shingles) Vaccine (1 of 2) [facility] Start: 09-26-1987 Hepatitis B Vaccine (1 of 3 - 19+ 3-dose series) Hepatitis B Vaccine (1 of 3 - 19+ 3-dose series) [facility] Start: 09-26-1987 SHINGRIX VACCINE (1 of 2) SHINGRIX VACCINE (1 of 2) [facility] Start: 1986 Adult BMI Follow Up Plan Adult BMI Follow Up Plan [facility] Start: 1986 ANNUAL PCP TEAM CHRONIC DISEASE VISIT ANNUAL PCP TEAM CHRONIC DISEASE VISIT [facility] Start: 1986 Anxiety Screening Anxiety Screening [facility] Start: 1986 BP CONTROLLED (<130/80) BP CONTROLLED (<130/80) [facility] Start: 1986 Depression Screening Depression Screening [facility] Start: 1986 Diabetic foot examination Diabetic Foot Exam [facility] Start: 1980 Depression Screening Depression Screening [facility] Start: 1978 3 comp foot exam completed DIABETIC FOOT EXAM [facility] Start: 1978 Diabetic foot examination Diabetic Foot Exam [facility] Start: 1968 Glaucoma screening Diabetic Ophthalmology Exam [facility] Start: 1968 HEPATITIS B (1 of 3 - 3-dose series) HEPATITIS B (1 of 3 - 3-dose series) [facility] Start: 1968 Hepatitis B Vaccine (1 of 3 - 3-dose series) Hepatitis B Vaccine (1 of 3 - 3-dose series) [facility] Start: 1968 Screening for malignant neoplasm of colon [facility] End: 03-19-2024 BONE MARROW ANALYSIS [facility] Work Phone: Comment on above: ONCE for 1 Occurrences starting 03/19/20 until 03/19/2024, 1 completed End: 03-19-2024 BONE MARROW CHROMOSOME ANAL [facility] Comment on above: ONCE for 1 Occurrences starting 03/19/20 until 03/19/2024 End: 07-21-2025 Colonoscopy Colonoscopy GI Routine Encounter for screening colonoscopy 1 Occurrences starting 07/22/2024 until 07/21/2025 [facility] Work Phone: Comment on above: 1 Occurrences starting 07/22/2024 until 07/21/2025 Diagnostic bone marko ow biopsies IMAGING GUIDED BIOPSY BONE MARROW (HEMATOLOGY) Radiology Routine CML (chronic myeloid leukemia) (HCC) Ordered: 01/14/2022 [facility] Work Phone: Comment on above: Ordered: 01/14/2022 Diagnostic bone marko ow biopsies IMAGING GUIDED BIOPSY BONE MARROW (HEMATOLOGY) Radiology Routine CML (chronic myeloid leukemia) (HCC) Ordered: 08/07/2022 [facility] Work Phone: Comment on above: Ordered: 08/07/2022 Diagnostic bone marko ow biopsies IMAGING GUIDED BIOPSY BONE MARROW (HEMATOLOGY) Radiology Routine CML (chronic myeloid leukemia) (HCC) Ordered: 05/22/2023 [facility] Work Phone: Comment on above: Ordered: 05/22/2023 End: 03-19-2024 DNA EXTRACTION BONE MARROW (BUFFY COAT) [facility] Comment on above: ONCE for 1 Occurrences starting 03/19/20 until 03/19/2024 End: 09-10-2022 ECG COMPLETE ECG COMPLETE ECG Routine CML (chronic myeloid leukemia) (HCC) 1 Occurrences starting 09/10/2021 until 09/10/2022 [facility] Work Phone: Comment on above: 1 Occurrences starting 09/10/2021 until 09/10/2022 End: 11-26-2022 ECG COMPLETE ECG COMPLETE ECG Routine CML (chronic myeloid leukemia) (HCC) 1 Occurrences starting 11/27/2021 until 11/26/2022 [facility] Work Phone: Comment on above: 1 Occurrences starting 11/27/2021 until 11/26/2022 End: 12-03-2022 ECG COMPLETE ECG COMPLETE ECG Routine CML (chronic myeloid leukemia) (HCC) 1 Occurrences starting 12/04/2021 until 12/03/2022 [facility] Work Phone: Comment on above: 1 Occurrences starting 12/04/2021 until 12/03/2022 End: 09-10-2022 Echocardiography ECHO Cardiology Routine CML (chronic myeloid leukemia) (HCC) 1 Occurrences starting 09/10/2021 until 09/10/2022 [facility] Work Phone: Comment on above: 1 Occurrences starting 09/10/2021 until 09/10/2022 End: 11-26-2022 Echocardiography ECHO Cardiology Routine CML (chronic myeloid leukemia) (HCC) 1 Occurrences starting 11/27/2021 until 11/26/2022 [facility] Work Phone: Comment on above: 1 Occurrences starting 11/27/2021 until 11/26/2022 End: 01-10-2023 Echocardiography ECHO Cardiology Routine CML (chronic myeloid leukemia) (HCC) 1 Occurrences starting 01/14/2022 until 01/10/2023 [facility] Work Phone: Comment on above: 1 Occurrences starting 01/14/2022 until 01/10/2023 End: 05-10-2023 Echocardiography ECHO Cardiology Routine CML (chronic myelocytic leukemia) (HCC) 1 Occurrences starting 05/23/2022 until 05/10/2023 [facility] Work Phone: Comment on above: 1 Occurrences starting 05/23/2022 until 05/10/2023 End: 12-05-2023 Echocardiography ECHO Cardiology Routine CML (chronic myeloid leukemia) (HCC) 1 Occurrences starting 12/05/2022 until 12/05/2023 [facility] Work Phone: Comment on above: 1 Occurrences starting 12/05/2022 until 12/05/2023 End: 01-23-2024 Echocardiography ECHO Cardiology Routine Chronic myeloid leukemia (HCC) 1 Occurrences starting 01/23/2023 until 01/23/2024 [facility] Work Phone: Comment on above: 1 Occurrences starting 01/23/2023 until 01/23/2024 End: 03-19-2024 FLOW CYTOMETRY FOR LEUKEMIA/LYMPHOMA (FCLL) REFLEX [facility] Comment on above: ONCE for 1 Occurrences starting 03/19/20 24 until 03/19/2024, 1 completed Guidance for biopsy of Bone marrow IMAGING GUIDED BIOPSY BONE MARROW (HEMATOLOGY) Radiology Routine CML (chronic myeloid leukemia) (HCC) Ordered: 12/19/2023 [facility] Work Phone: Comment on above: Ordered: 12/19/2023 Guidance for biopsy of Bone marrow IMAGING GUIDED BIOPSY BONE MARROW (HEMATOLOGY) Radiology Routine CML (chronic myeloid leukemia) (HCC) Ordered: 07/21/2024 [facility] Comment on above: Ordered: 07/21/2024 Guidance for biopsy of Soft tissue IMAGING GUIDED BIOPSY SOFT TISSUE MASS/MUSCLE Radiology Routine CML (chronic myeloid leukemia) (HCC) Ordered: 07/14/2024 [facility] [employer] Work Phone: Comment on above: Ordered: 07/14/2024 Guidance for percutaneous biopsy of Bone IR BONE BIOPSY Radiology Routine CML (chronic myeloid leukemia) (HCC) Ordered: 07/21/2024 [facility] Comment on above: Ordered: 07/21/2024 Hepatitis B virus surface Ab [Presence] in Serum [facility] Hepatitis B virus surface Ag [Presence] in Serum or Plasma by Immunoassay [facility] Hepatitis C virus Ig G Ab [Presence] in Serum or Plasma by Immunoassay [facility] [place], [facility] Immunizations Immunization Date Immunization Notes Care Provider [facility] 09-19-2020 COVID-19 vaccine, ag e 12+ yr (PFIZER-BIONTECH - PURPLE TOP) Emma Tuttle RN [facility] 08-29-2020 COVID-19 vaccine, ag e 12+ yr (PFIZER-BIONTECH - PURPLE TOP) Emma Tuttle RN [facility] 04-21-2018 influenza, injectabl e, quadrivalent, preservative free Emma Tuttle RN [facility] 04-21-2018 influenza virus vacc ine, unspecified formulation Kylee Dalal APRN.NETWORK INTELLIGENCE ANALYST Work Phone: [facility] 05-21-2017 influenza, injectabl e, quadrivalent, preservative free Emma Tuttle RN [facility] 05-20-2017 influenza nasal, unspecified formulation Emma Tuttle RN [facility] 05-20-2017 pneumococcal conjuga te vaccine, 13 valent Emma Tuttle RN [facility] 07-19-2016 influenza, seasonal, injectable, preservative free Emma Tuttle RN [facility] 12-16-2010 tetanus toxoid, redu preet diphtheria toxoid, and acellular pertussis vaccine, adsorbed Emma Tuttle RN [facility] 07-13-2009 novel influenza-H1N1 -09, preservative-free, injectable Emma Tuttle RN [facility] Payers Date Payer Category Payer Worker's 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 2022 Medicaid [id number] 2022 Unknown [employer] [id number] 2022-Present [phone] [address] [address] [place] [address] [id number] 2021 Private Health Insurance xxx [id number] .[id number] 2020 Medicaid [employer] MEDICAID [id number] 2020-Present [phone] [address] [place] [address] Medicaid [id number] 2020 Managed Care Other (unspecified) [employer] [id number] .[id number] 2020 Private Health Insurance [id number] .[id number] .[id number] 2019 Unknown [id number] 1968 Unknown [id number] 2.16.840.1.356848.3.579.2 .593 1968 Unknown [id number] 2.16.840.1.957853.3.579.2 .593 1968 Unknown [id number] 2.16.840.1.218203.3.579.2 .593 1968 Unknown [id number] 2.16.840.1.052366.3.579.2 .593 1968 Unknown [id number] 2.16.840.1.380358.3.579.2 .593 1968 Unknown [id number] 2.16.840.1.861960.3.579.2 .593 1968 Unknown [id number] 2.16.840.1.419339.3.579.2 .1285 1968 Unknown [id number] 2.840.1.706572.3.579.2 .1285 1968 Unknown [id number] 2.840.1.301432.3.579.2 .1285 1968 Unknown [id number] 2.840.1.159694.3.579.2 .1285 1968 Unknown [id number] 2.840.1.459222.3.579.2 .1285 1968 Unknown [id number] 2.840.1.949213.3.579.2 .1285 1968 Unknown [id number] 2.840.1.869646.3.579.2 .1968 Unknown [id number] 2.840.1.089929.3.579.2 .1968 Unknown [id number] 2.840.1.441629.3.579.2 .1285 1968 Unknown [id number] 2.840.1.498999.3.579.2 .1285 1968 Unknown [id number] 2.840.1.629222.3.579.2 .1285 1968 Unknown [id number] .840.1.760229.3.579.2 .1285 1968 Unknown [id number] 2.840.1.130163.3.579.2 .1285 1968 Unknown [id number] 2.840.1.576400.3.579.2 .1285 1968 Unknown [id number] 2.840.1.789061.3.579.2 .1286 1968 Unknown [id number] 2.16.840.1.326452.3.579.2 .1285 1968 Unknown [id number] 2.16.840.1.736193.3.579.2 .1258 1968 Unknown [id number] 2.16.840.1.939545.3.579.2 .1258 1968 Unknown [id number] 2.16.840.1.448176.3.579.2 .1258 1968 Unknown [id number] 2.840.1.651437.3.579.2 .1258 1968 Unknown [id number] 2.840.1.766526.3.579.2 .1258 1968 Unknown [id number] 2.840.1.569925.3.579.2 .1258 1968 Unknown [id number] 2.840.1.466976.3.579.2 .1258 1968 Unknown [id number] 2.840.1.915678.3.579.2 .1258 1968 Unknown [id number] 2.840.1.168427.3.579.2 .1258 1968 Unknown [id number] 2.840.1.858654.3.579.2 .1258 1968 Unknown [id number] 2.840.1.384430.3.579.2 .1258 1968 Unknown [id number] 2.16.840.1.008908.3.579.2 .1258 1968 Unknown [id number] 2.16.840.1.841155.3.579.2 .1258 1968 Unknown [id number] 2.840.1.477165.3.579.2 .1258 1968 Unknown [id number] 2.16.840.1.872190.3.579.2 .9 1968 Unknown [id number] 2.16.840.1.710183.3.579.2 .1258 1968 Unknown [id number] 2.16.840.1.162462.3.579.2 .1258 1968 Unknown [id number] 2.16.840.1.322401.3.579.2 .1258 1968 Unknown [id number] 2.16.840.1.557629.3.579.2 .1258 1968 Unknown [id number] 2.16.840.1.115337.3.579.2 .1258 1968 Unknown [id number] 2.16.840.1.176060.3.579.2 .1258 1968 Unknown [id number] 2.16.840.1.001683.3.579.2 .1258 1968 Unknown [id number] 2.16.840.1.166904.3.579.2 .9 1959 Unknown [id number] 1959 Unknown [id number] 1959 Unknown [id number] Unknown [place] BC/BS [id number] Unknown [id number] 2.16.840.1.933277.3.579.2 .531 Unknown [id number] 2.16840.1.450346.3.579.2 .531 Social History Date Type Detail Facility Start: 02-18-2022 End: 02-12-2023 Tobacco smoking status NHIS Never smoked tobacco [facility] Start: 09-03-2021 End: 08-04-2024 Alcohol intake Current drinker of alcohol (finding) [facility] Start: 1970 Sex Assigned At Not on file [facility] Start: 08-24-2021 End: 05-13-2022 Exposure to SARS-CoV-2 (event) Not sure [facility] Start: 02-18-2022 End: 02-12-2023 Tobacco use and exposure Smokeless tobacco non-user [facility] Start: 10-30-2022 End: 12-01-2023 History of Social function [facility] Start: 10-30-2022 End: 12-01-2023 Tobacco use panel [facility] Adult Depression Screening Assessment 1 [facility] Start: 1970 Sex Assigned At Male [facility] Start: 03-03-2024 End: 08-11-2024 Alcoholic beverage intake Ex-drinker (finding) [facility] Start: 03-20-2023 Alcohol Comment social, rare [facility] Start: 01-12-2015 Sex Male (finding) [facility] Start: 03-23-2023 Gender identity Identifies as male gender (finding) [facility] Start: 03-23-2023 Sexual orientation Heterosexual (finding) [facility] Medical Equipment Procedure Code Equipment Code Equipment Origin al Text Equipment Identifier Dates [id number], [id number] Start: 01-31-2023 End: 05-31-2024 Comment on above: Use with blood gluco se test one time daily Functional Status Date Assessment Result Facility 11-23-2014 Are you deaf, or do you have serious difficulty hearing No 11/23/2014 3:20 PM Bety Patton RN [facility] 11-23-2014 Are you blind, or do you have serious difficulty seeing, even when wearing glasses No 11/23/2014 3:20 PM Bety Patton RN [facility] 11-23-2014 Do you have serious difficulty walking or climbing stairs No 11/23/2014 3:20 PM Bety Patton RN [facility] 11-23-2014 Do you have difficul ty dressing or bathing No 11/23/2014 3:20 PM Bety Patton RN [facility] 11-23-2014 Because of a physica l, mental, or emotional condition, do you have difficulty doing errands alone such as visiting a physician's office or shopping No 11/23/2014 3:20 PM Bety Patton RN No [facility] Mental Status Date Assessment Result Facility 11-23-2014 Because of a physica l, mental, or emotional condition, do you have serious difficulty concentrating, remembering, or making decisions No 11/23/2014 3:20 PM EDT Bety Kumar RN No [facility] Clinical Notes 09-03-2021 to 08-11-2024 LIZZY LIMON - 08/11/2024 8:40 AM ESTLisa Juliet, YANE - 08/11/2024 8:40 AM ESTLisa Declanhstephanie, HAT BLOCKING MACHINE OPERATOR - 08/11/2024 6:16 AM ESTLisa Juliet, HAT BLOCKING MACHINE OPERATOR - 08/11/2024 6:16 AM ESTPatient Instructions Note Date & Type Note Facility 08-11-2024 History of Present illness Narrative 190 yesterdays fasting glucose Pt needs a refill on his amlodipine Images from the original note were not included. Derrell Avitia is a 53 y.o. male presents with chief complaint of Diabetes HPI: Sugars 150-190's occ over 200 Difficulty with sensor cost egan. Diabetes He presents for his follow-up diabetic visit. He has type 2 diabetes mellitus. His disease course has been fluctuating. There are no hypoglycemic associated symptoms. Pertinent negatives for hypoglycemia include no dizziness, nervousness/anxiousness, seizures or tremors. Associated symptoms include foot paresthesias, polydipsia and polyuria. Pertinent negatives for diabetes include no blurred vision, no chest pain, no fatigue, no polyphagia and no visual change. There are no hypoglycemic complications. Symptoms are stable. Diabetic complications include nephropathy. Pertinent negatives for diabetic complications include no heart disease or PVD. Risk factors for coronary artery disease include diabetes mellitus, dyslipidemia, hypertension, male sex and obesity. Current diabetic treatment includes insulin injections and oral agent (monotherapy). He is compliant with treatment most of the time. He is following a generally healthy diet. He rarely participates in exercise. His overall blood glucose range is 180-200 mg/dl. An BERT inhibitor/angiotensin II receptor christina is not being taken. Eye exam is current. Hypertension This is a chronic problem. The current episode started more than 1 year ago. The problem is unchanged. The problem is controlled. Pertinent negatives include no blurred vision, chest pain, peripheral edema or shortness of breath. There are no associated agents to hypertension. Risk factors for coronary artery disease include diabetes mellitus, male gender, obesity and dyslipidemia. Past treatments include calcium channel blockers. The current treatment provides significant improvement. There are no compliance problems. There is no history of CAD/MT, heart failure or PVD. SUBJECTIVE: MEDICATIONS: Current Outpatient Medications Medication Instructions amLODIPine (NORVASC) 10 mg, Oral, Daily B-D UF III MINI PEN NEEDLES 31G X 5 MM [facility] [place] Blood Gluc Resaw Feeder (GrowYoyle [place] 2 [place]) device USE DIRECTED TO CHECK GLUCOSE FOUR TIMES DAILY empagliflozin (JARDIANCE) 25 mg, Oral, Daily with breakfast FreeStyle Precision Addison Test test strip 1 each, Daily insulin glargine (Lantus SoloStar) 100 UNIT/ML pen 35 units twice a day insulin lispro (HumaLOG) 100 UNIT/ML injection 10 units for at breakfast and lunch, and 22 units at dinner time, plus sliding scale. Max 78 units per daily lisinopril 20 mg, Oral, Daily pravastatin (PRAVACHOL) 80 mg, Oral, Daily ALLERGIES: Allergies Allergen Reactions Morphine GI intolerance REVIEW OF SYMPTOMS: Review of Systems Constitutional: Negative for activity change, appetite change, fatigue and unexpected weight change. HENT: Negative for ear pain, nosebleeds, sneezing, trouble swallowing and voice change. Eyes: Negative for blurred vision, pain, discharge and visual disturbance. Respiratory: Negative for apnea, chest tightness, shortness of breath and wheezing. Cardiovascular: Negative for chest pain and leg swelling. Gastrointestinal: Negative for abdominal distention, blood in stool, constipation and diarrhea. Genitourinary: Negative for decreased urine volume, difficulty urinating, dysuria and hematuria. Musculoskeletal: Positive for arthralgias. Skin: Negative for color change. Neurological: Positive for numbness. Negative for dizziness, tremors and seizures. Psychiatric/Behavioral: Negative for agitation, decreased concentration, hallucinations, self-injury and suicidal ideas. The patient is not nervous/anxious. Hematological: Negative for adenopathy. Does not bruise/bleed easily. Endocrine: Positive for polydipsia and polyuria. Negative for cold intolerance, heat intolerance and polyphagia. Allergic/Immunologic: Negative for environmental allergies and food allergies. PAST MEDICAL HISTORY Past Medical History: Diagnosis Date Anemia Arthritis 08/07/2023 At moderate risk for fall Chronic myeloid leukemia (CMS/HCC) Degenerative lumbar disc 08/07/2023 Diabetic neuropathy (CMS/HCC) Gastritis GERD (gastroesophageal reflux disease) Hyperlipidemia (CMS/HCC) Hyponatremia Migraine headache (CMS/HCC) Obesity (BMI 30-39.9) 05/06/2023 Pancreatitis Primary hypertension (CMS/HCC) 05/06/2023 Oncology increase dose on amlodipine since last visit with me Bp much better No changes in med dose at this time Rotator cuff tear, right 08/07/2023 Spondylolisthesis Past Surgical History: Procedure Laterality Date BACK SURGERY [address] ANGIOGRAM HEART CORONARY 06/29/2019 CT ANGIOGRAM TAVR 06/29/2019 CT GUIDED PERCUTANEOUS BIOPSY BONE 12/07/2014 CT GUIDED PERCUTANEOUS BIOPSY BONE KNEE ARTHROPLASTY Right KNEE SURGERY Right 1998 RT KNEE SCOPE PER DR KILPATRICK SHOULDER ARTHROSCOPY Right 12/09/2023 RT SHOULDER SCOPE- DR KILPATRICK SPINE SURGERY TONSILLECTOMY family history includes Alzheimer's disease in an other family member; Diabetes in his father, mother, and another family member; Heart disease in his mother; Hypertension in his father and mother; Stroke in an other family member; cva in an other family member. OBJECTIVE: Visit Vitals BP 124/82 (BP Location: Left arm, Patient Position: Sitting, BP Cuff Size: Large adult) Pulse 65 Temp 98.1 F (Temporal) Resp 18 Ht 5' 10 Wt 263 lb 3.2 oz SpO2 96% BMI 37.77 kg/m Smoking Status Never BSA 2.42 m Physical Exam Vitals and nursing note reviewed. Constitutional: Appearance: Normal appearance. He is obese. HENT: Head: Normocephalic. Right Ear: External ear normal. Left Ear: External ear normal. Nose: Nose normal. Mouth/Throat: Mouth: Mucous membranes are moist. Pharynx: Oropharynx is clear. Eyes: Extraocular Movements: Extraocular movements intact. Conjunctiva/sclera: Conjunctivae normal. Neck: Vascular: No carotid bruit. Cardiovascular: Rate and Rhythm: Normal rate and regular rhythm. Pulses: Normal pulses. Heart sounds: Normal heart sounds. Pulmonary: Effort: Pulmonary effort is normal. No respiratory distress. Breath sounds: Normal breath sounds. No wheezing. Abdominal: General: Bowel sounds are normal. Palpations: Abdomen is soft. Tenderness: There is no abdominal tenderness. Hernia: No hernia is present. Musculoskeletal: Cervical back: Neck supple. Right lower leg: No edema. Left lower leg: No edema. Comments: Sl flattening scapular region left shoulder Limited ROM left shoulder, going to be having surgery for rotator cuff repair MMT 3.5-4/5 LUE, 4.5/5 RUE DTR's 2+ bilat UE/LE Lumbar near full ROM, sl limitation to hyperextension No gross atrophy noted to bilat UE/LE Lymphadenopathy: Cervical: No cervical adenopathy. Skin: General: Skin is warm and dry. Capillary Refill: Capillary refill takes 2 to 3 seconds. Neurological: General: No focal deficit present. Mental Status: He is alert. Psychiatric: Mood and Affect: Mood normal. Behavior: Behavior normal. Thought Content: Thought content normal. Judgment: Judgment normal. ASSESSMENT AND PLAN: No follow-ups on file. Problem List Items Addressed This Visit Essential (primary) hypertension ([facility]) Please check blood pressure daily and record DASH diet Limit caffeine Take medication as directed Contact office if chest pain, pressure, dizziness, shortness of breath, swelling legs Recommend slow position changes Current meds: amlodipine and lisinopril Relevant Medications amLODIPine (Norvasc) 10 MG tablet lisinopril 20 MG tablet Other Relevant Orders Microalbumin / creatinine, urine ratio Urinalysis with microscopic (reflex culture if indicated) Type 2 diabetes mellitus with hyperglycemia, with long-term current use of insulin ([facility]) Check blood sugars daily, notify if <70 or >200. Take medications (pills or insulin) as directed. Monitor for s/s of hypoglycemia (sweaty, dizziness, nausea, vomiting, or shakiness). Watch for increase in thirst, urination, or appetite. Inspect feet frequently monitoring for open wounds , and also recommend yearly eye exam. Pt should attempt to remain as physically active as chronic conditions allow, as well as trying to follow a diet low in carbohydrates, and simple sugars. Current meds: jardiance, insulin, bert, statin A1c: 8.5% on 06/16/24, had been having difficulty getting meds, in that 90 day period, however the previous A1c was 10.5% Jardiance samples: 25mg : 2 pill daily #3 samples, lot [id number], exp 08/04 Relevant Medications empagliflozin (Jardiance) 25 MG Body mass index (BMI) 36.0-36.9, adult Obstructive sleep apnea (adult) (pediatric) - Primary You have a diagnosis of obstructive sleep apnea. It is recommended that you wear your PAP device any time while in bed sleeping. Not using the PAP device can increase your risk of elevated/uncontrolled high blood pressure, atrial fibrillation, heart attack, stroke, or sudden . Does not use PAP Hypertrophic cardiomyopathy (CMS/HCC) Is following with cardiology Med: amlodipine and lisinopril Chronic myeloid leukemia, BCR/ABL-positive, not having achieved remission (CMS/HCC) Continues with treatment through [facility] Hyperlipidemia (CMS/HCC) Is on statin therapy Continue yearly labs and prn dose changes Relevant Medications pravastatin (Pravachol) 80 MG tablet Screening for prostate cancer Relevant Orders PSA LVH (left ventricular hypertrophy) Per ECHO findings Follows with cardiology Morbid (severe) obesity due to excess calories (CMS/HCC) Discussed with patient their BMI (actual, verses recommended). We have also discussed lifestyle modifications: attempts to perform physical activity as chronic conditions allow, also to monitor dietary intake: increasing protein/fruits/veggies and lowering carb intake (unless contraindicated). Limit sodas, juices, and sugary drinks. 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) Does not taking any medications Recommend freq foot checks, proper fitting footwear Goal for adequate glycemic control care home (current) use of insulin ([facility]) Continues w basal and bolus insulin Type 2 diabetes mellitus with diabetic nephropathy ([facility]/HCC) Check labs yearly and prn Goal to control both DM and HTN Relevant Orders Microalbumin / creatinine, urine ratio Urinalysis with microscopic (reflex culture if indicated) Other Visit Diagnoses Type 2 diabetes mellitus with hyperglycemia (CMS/HCC) Other hypertrophic cardiomyopathy (CMS/HCC) Primary hypertension (CMS/HCC) Relevant Medications amLODIPine (Norvasc) 10 MG tablet lisinopril 20 MG tablet Associated Problem(s): 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 ([facility]) Continues w basal and bolus insulin Associated Problem(s): Hyperlipidemia ([facility]) Is on statin therapy Continue yearly labs and prn dose changes Associated Problem(s): Chronic myeloid leukemia, BCR/ABL-positive, not having achieved remission ([facility]) Continues with treatment through [facility] Associated Problem(s): Type 2 diabetes mellitus with hyperglycemia, with long-term current use of insulin ([facility]) Check blood sugars daily, notify if <70 or >200. Take medications (pills or insulin) as directed. Monitor for s/s of hypoglycemia (sweaty, dizziness, nausea, vomiting, or shakiness). Watch for increase in thirst, urination, or appetite. Inspect feet frequently monitoring for open wounds , and also recommend yearly eye exam. Pt should attempt to remain as physically active as chronic conditions allow, as well as trying to follow a diet low in carbohydrates, and simple sugars. Current meds: jardiance, insulin, bert, statin A1c: 8.5% on 06/16/24, had been having difficulty getting meds, in that 90 day period, however the previous A1c was 10.5% Jardiance samples: 25mg : 1/2 pill daily #3 samples, lot [id number], exp 08/04 Associated Problem(s): Type 2 diabetes mellitus with diabetic nephropathy ([facility]) Check labs yearly and prn Goal to control both DM and HTN Associated Problem(s): Morbid (severe) obesity due to excess calories (CMS/HCC) Discussed with patient their BMI (actual, verses recommended). We have also discussed lifestyle modifications: attempts to perform physical activity as chronic conditions allow, also to monitor dietary intake: increasing protein/fruits/veggies and lowering carb intake (unless contraindicated). Limit sodas, juices, and sugary drinks. Associated Problem(s): GERD (gastroesophageal reflux disease) .LAG Associated Problem(s): LVH (left ventricular hypertrophy) Per ECHO findings Follows with cardiology Associated Problem(s): Hypertrophic cardiomyopathy (CMS/HCC) Is following with cardiology Med: amlodipine and lisinopril Associated Problem(s): Essential (primary) hypertension (CMS/HCC) Please check blood pressure daily and record DASH diet Limit caffeine Take medication as directed Contact office if chest pain, pressure, dizziness, shortness of breath, swelling legs Recommend slow position changes Current meds: amlodipine and lisinopril Associated Problem(s): 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) Does not taking any medications Recommend freq foot checks, proper fitting footwear Goal for adequate glycemic control Associated Problem(s): Obstructive sleep apnea (adult) (pediatric) You have a diagnosis of obstructive sleep apnea. It is recommended that you wear your PAP device any time while in bed sleeping. Not using the PAP device can increase your risk of elevated/uncontrolled high blood pressure, atrial fibrillation, heart attack, stroke, or sudden . Does not use PAP documented in this encounter [facility] 08-11-2024 Instructions Buffy Chung NP - 08/11/2024 8:40 AM EST Get labs: PSA blood test and urine test Address plans for colonoscopy at next visit documented in this encounter [facility] 08-04-2024 Nurse Note Preoperative Education Checklist- General Surgery date: 08/13/24 Surgery time: 1030a Arrival time: 830a 1. Bring a photo ID and your insurance card with you the day of surgery. You will check in at the main lobby of the [facility]- registration desk is straight ahead as soon as you walk in. Tell them you are here for surgery. 2. If you have a Living Will/Durable Power of Casing Runner for Health Care that is not on file here, please bring a copy the day of surgery. 3. Please shower/bathe the night before surgery with the provided soap or wipes. Do not shower the morning of surgery- you will do use wipes when you arrive here at the hospital before getting into your surgical gown. Do not shave the area of your procedure for 2 days prior to your surgery. 4. NO powder, lotion, perfume/cologne, aftershave, make-up, deodorant, or hair products after you have bathed. 5. NO nail burkinan/acrylic on at least one finger. If you are having a hand, wrist or foot surgery then all nail burkinan and artificial/acrylic nails must be removed from that hand or foot. 6. Avoid ALL Aspirin and non-steroidal anti-inflammatory drugs and certain vitamins (Ibuprofen, Advil, Aleve, Excedrin, Meloxicam, Celebrex, fish/krill oil, etc.) for 7 days prior to surgery as instructed by your surgeon and/or your prescribing doctor. Tylenol IS ALLOWED. If you are on Ticlid, Xarelto, Eliquis, Pradaxa, Plavix or Coumadin, please check with your prescribing doctor for instructions for when to stop them. 7. If you use an inhaler, continue to use it routinely. 8. Nothing to eat or drink (not even water, gum, mints, or hard candy!) AFTER midnight prior to your surgery. 9. Take only medications that you are instructed to on the morning of surgery with a TINY SIP OF WATER. 10. Choose a responsible adult that will be able to drive you home when you are discharged from your hospital stay for your surgery and can stay with you in your home for 24 hours after your procedure. You must NOT drive any vehicle or operate any machinery for 24 hours after surgery. 11. When you dress for your appointment, please wear loose fitting clothing that is appropriate to accommodate your surgical area procedure. BRING WITH YOU ANY DEVICES YOU MAY NEED: LISSETTE hose, ice machine, sling/swath, brace or special shoe, oversized zip-up or button up shirt, CPAP machine if staying overnight. 12. Do NOT wear jewelry, watches, or any piercings or metal for surgery- leave these valuables and money at home. 13. Do NOT wear contact lenses for surgery- glasses are okay if needed. 14. The anesthesiologist will talk with you the day of surgery and will ask you to sign a Consent Form. 15. Refrain from smoking or any type of tobacco use for at least 8 hours and marijuana for 24 hours prior to arrival for your surgery. 16. If a GREEN BLOOD band is given to you, please bring it with you for the day of surgery. 17. Notify your surgeon if you develop any illness before your surgery. 18. If you are staying overnight, please DO NOT BRING your home medications with you. 19. If you have any questions prior to surgery, please call the Preadmission Testing office at [phone], Mon.-Fri. 7 a.m.-3 p.m. Leave a voicemail if needed. Pre-Surgery Instructions: Medication Instructions amLODIPine (NORVASC) 5 mg tablet Take morning of procedure empagliflozin (JARDIANCE) 25 mg tablet tablet Stop taking 3 days prior to procedure FREESTYLE MARY ANN 2 SENSOR kit Take morning of procedure insulin glargine (LANTUS, BASAGLAR) 100 unit/mL (3 mL) insulin pen Take half a dose evening before procedure. Check BS in morning, take half a dose if needed morning of procedure insulin lispro (HumaLOG) 100 unit/mL insulin pen Stop taking 0 days prior to procedure lisinopriL (PRINIVIL,ZESTRIL) 20 mg tablet Stop taking 0 days prior to procedure NON FORMULARY Stop taking 0 days prior to procedure pravastatin (PRAVACHOL) 40 mg tablet Stop taking 0 days prior to procedure sod sulf-pot chloride-mag sulf 1.479-0.188- 0.225 gram tablet Check with prescribing doctor for instructions [facility] [employer] 08-04-2024 Miscellaneous Notes Preoperative Education Checklist- General Surgery date: 08/13/24 Surgery time: 1030a Arrival time: 830a 1. Bring a photo ID and your insurance card with you the day of surgery. You will check in at the main lobby of the [facility]- registration desk is straight ahead as soon as you walk in. Tell them you are here for surgery. 2. If you have a Living Will/Durable Power of Casing Runner for Health Care that is not on file here, please bring a copy the day of surgery. 3. Please shower/bathe the night before surgery with the provided soap or wipes. Do not shower the morning of surgery- you will do use wipes when you arrive here at the hospital before getting into your surgical gown. Do not shave the area of your procedure for 2 days prior to your surgery. 4. NO powder, lotion, perfume/cologne, aftershave, make-up, deodorant, or hair products after you have bathed. 5. NO nail burkinan/acrylic on at least one finger. If you are having a hand, wrist or foot surgery then all nail burkinan and artificial/acrylic nails must be removed from that hand or foot. 6. Avoid ALL Aspirin and non-steroidal anti-inflammatory drugs and certain vitamins (Ibuprofen, Advil, Aleve, Excedrin, Meloxicam, Celebrex, fish/krill oil, etc.) for 7 days prior to surgery as instructed by your surgeon and/or your prescribing doctor. Tylenol IS ALLOWED. If you are on Ticlid, Xarelto, Eliquis, Pradaxa, Plavix or Coumadin, please check with your prescribing doctor for instructions for when to stop them. 7. If you use an inhaler, continue to use it routinely. 8. Nothing to eat or drink (not even water, gum, mints, or hard candy!) AFTER midnight prior to your surgery. 9. Take only medications that you are instructed to on the morning of surgery with a TINY SIP OF WATER. 10. Choose a responsible adult that will be able to drive you home when you are discharged from your hospital stay for your surgery and can stay with you in your home for 24 hours after your procedure. You must NOT drive any vehicle or operate any machinery for 24 hours after surgery. 11. When you dress for your appointment, please wear loose fitting clothing that is appropriate to accommodate your surgical area procedure. BRING WITH YOU ANY DEVICES YOU MAY NEED: LISSETTE hose, ice machine, sling/swath, brace or special shoe, oversized zip-up or button up shirt, CPAP machine if staying overnight. 12. Do NOT wear jewelry, watches, or any piercings or metal for surgery- leave these valuables and money at home. 13. Do NOT wear contact lenses for surgery- glasses are okay if needed. 14. The anesthesiologist will talk with you the day of surgery and will ask you to sign a Consent Form. 15. Refrain from smoking or any type of tobacco use for at least 8 hours and marijuana for 24 hours prior to arrival for your surgery. 16. If a GREEN BLOOD band is given to you, please bring it with you for the day of surgery. 17. Notify your surgeon if you develop any illness before your surgery. 18. If you are staying overnight, please DO NOT BRING your home medications with you. 19. If you have any questions prior to surgery, please call the Preadmission Testing office at [phone], Mon.-Fri. 7 a.m.-3 p.m. Leave a voicemail if needed. Pre-Surgery Instructions: Medication Instructions amLODIPine (NORVASC) 5 mg tablet Take morning of procedure empagliflozin (JARDIANCE) 25 mg tablet tablet Stop taking 3 days prior to procedure FREESTYLE MARY ANN 2 SENSOR kit Take morning of procedure insulin glargine (LANTUS, BASAGLAR) 100 unit/mL (3 mL) insulin pen Take half a dose evening before procedure. Check BS in morning, take half a dose if needed morning of procedure insulin lispro (HumaLOG) 100 unit/mL insulin pen Stop taking 0 days prior to procedure lisinopriL (PRINIVIL,ZESTRIL) 20 mg tablet Stop taking 0 days prior to procedure NON FORMULARY Stop taking 0 days prior to procedure pravastatin (PRAVACHOL) 40 mg tablet Stop taking 0 days prior to procedure sod sulf-pot chloride-mag sulf 1.479-0.188- 0.225 gram tablet Check with prescribing doctor for instructions [facility] History of Present illness Narrative Images from the original note were not included. GENERAL HISTORY AND PHYSICAL: NAME: Derrell Avitia : 1970 HISTORY OF PRESENT ILLNESS: Derrell Avitia is an 53 y.o. @ male. Here for surgery instructions -H&P LT SHOULDER SCOPE WITH RCR AND BICEP TENODESIS 08/16/24 @ [facility] PAST MEDICAL HISTORY: Past Medical History: Diagnosis Date Anemia Arthritis 08/07/2023 At moderate risk for fall Chronic myeloid leukemia (CMS/HCC) Degenerative lumbar disc 08/07/2023 Diabetic neuropathy (CMS/HCC) Gastritis GERD (gastroesophageal reflux disease) Hyperlipidemia (CMS/HCC) Hyponatremia Migraine headache (CMS/HCC) Obesity (BMI 30-39.9) 05/06/2023 Pancreatitis Primary hypertension (CMS/HCC) 05/06/2023 Oncology increase dose on amlodipine since last visit with me Bp much better No changes in med dose at this time Rotator cuff tear, right 08/07/2023 Spondylolisthesis PAST SURGICAL HISTORY: Past Surgical History: Procedure Laterality Date BACK SURGERY [address] ANGIOGRAM HEART CORONARY 06/29/2019 CT ANGIOGRAM TAVR 06/29/2019 CT GUIDED PERCUTANEOUS BIOPSY BONE 12/07/2014 CT GUIDED PERCUTANEOUS BIOPSY BONE KNEE ARTHROPLASTY Right KNEE SURGERY Right 1998 RT KNEE SCOPE PER DR KILPATRICK SHOULDER ARTHROSCOPY Right 12/09/2023 RT SHOULDER SCOPE- DR KILPATRICK SPINE SURGERY TONSILLECTOMY SOCIAL HISTORY: Social History Occupational History Not on file Tobacco Use Smoking status: Never Smokeless tobacco: Never Vaping Use Vaping status: Never Used Substance and Sexual Activity Alcohol use: Not Currently Drug use: Never Sexual activity: Yes ALLERGIES: Allergies Allergen Reactions Morphine GI intolerance MEDICATIONS: Current Outpatient Medications Medication Instructions amLODIPine (NORVASC) 10 mg, Oral, Daily B-D UF III MINI PEN NEEDLES 31G X 5 MM misc Continuous Blood Gluc Resaw Feeder (Splother Mary [place] 2 [place]) device USE DIRECTED TO CHECK GLUCOSE FOUR TIMES DAILY empagliflozin (JARDIANCE) 25 mg, Oral, Daily with breakfast Splother Precision Addison Test test strip 1 each, Daily insulin glargine (Lantus SoloStar) 100 UNIT/ML pen 35 units twice a day insulin lispro (HumaLOG) 100 UNIT/ML injection 10 units for at breakfast and lunch, and 22 units at dinner time, plus sliding scale. Max 78 units per daily lisinopril 20 mg, Oral, Daily pravastatin (PRAVACHOL) 80 mg, Oral, Daily REVIEW OF SYSTEMS: Review of Systems Constitutional: Negative for fatigue, fever and unexpected weight change. Eyes: Negative for redness and visual disturbance. Gastrointestinal: Negative for abdominal pain. Denies Indigestion Musculoskeletal: See note: Skin: Negative for color change and rash. Neurological: Negative for light-headedness and numbness. Vitals: Body mass index is 36.73 kg/m . PHYSICAL EXAM: Physical Exam Constitutional: General: He is not in acute distress. Appearance: Normal appearance. HENT: Head: Normocephalic and atraumatic. Right Ear: External ear normal. Left Ear: External ear normal. Nose: Nose normal. No rhinorrhea. Mouth/Throat: Mouth: Mucous membranes are moist. Pharynx: No posterior oropharyngeal erythema. Eyes: Extraocular Movements: Extraocular movements intact. Conjunctiva/sclera: Conjunctivae normal. Cardiovascular: Rate and Rhythm: Normal rate and regular rhythm. Pulses: Normal pulses. Heart sounds: No murmur heard. Pulmonary: Effort: Pulmonary effort is normal. No respiratory distress. Breath sounds: Normal breath sounds. No wheezing or rhonchi. Abdominal: Palpations: Abdomen is soft. Tenderness: There is no abdominal tenderness. Musculoskeletal: Cervical back: Normal range of motion and neck supple. Lymphadenopathy: Cervical: No cervical adenopathy. Skin: General: Skin is warm and dry. Findings: No erythema or rash. Neurological: General: No focal deficit present. Mental Status: He is alert and oriented to person, place, and time. Psychiatric: Mood and Affect: Mood normal. Behavior: Behavior normal. No orders of the defined types were placed in this encounter. ASSESSMENT: ICD-10-CM 1. Pre-op examination Z01.818 2. Tear of left supraspinatus tendon M75.102 PLAN: This patient presents for preadmission testing for upcoming surgery. Complete history with medical, surgery, and current allergy and medication list obtained. Consent for surgery signed and witnessed after verbal consent to perform surgery received. All questions answered and proposed surgery scheduled. Patient presents today for fitting of left [id number] Shoulder Orthosis, Acromioclavicular, Prefabricated, Off the Shelf today. Brace is used to immobilize and increase stability of the shoulder joint to allow for full and complete healing. Fitting and adjustments were done under physician order and supervision. Patient was placed in the brace and all straps were adjusted for proper fit. Brace was dispensed to the patient and [facility] Patient Agreement was completed and signed. Warranty information was given and explained to the patient with good understanding. Proper care and fitting was also explained to the patient with good understanding. LT SHOULDER SCOPE WITH RCR/BICEP TENODESIS 08/16/24 @ [facility] 08/02/@ 8AM [facility] 07/28/24 @ 9 [facility] [place] [id number] AND [id number] No follow-ups on file. documented in this encounter [facility] 07-30-[address] Tompkins reviews JENNIFER Metzger information and testing results. No orders given, ok to proceed with procedure. [Electronically Signed on: 07/30/2024 09:04 EST] ___ Boogie Gaitan RN [Verified on: 07/30/2024 09:04 EST] ___ Boogie Gaitan RN [facility] 07-23-2024 Telephone encounter Note Spoke to pt and scheduled biopsy for 09/10/24. [facility] 07-23-2024 Miscellaneous Notes Spoke to pt and scheduled biopsy for 09/10/24. Order incorrect, paged Dr. Howell. --->Or, I have a biopsy request for [place] [id number] and the order is incorrect. Please place order # [id number]. Margarita Joseph [id number] RADIOLOGIST REQUEST / APPROVAL FORM STAFF RADIOLOGIST: Dr. Marks PROCEDURE TO BE DONE UNDER: CT PROCEDURE REQUESTED: CORE Requested PROCEDURE: Approved TIME SLOT NEEDED: 1 Hour NOTES: bmbx, CML, clinical trial SPECIAL LABS/ PROCESSING: kit for trial send out ACT 1920 Pre-procedure labs: CBC: not needed INR: not needed COVID: not needed SIR Bleeding risk category for this procedure: low risk. Reference from [facility] [employer]: https://[facility].policySpring [employer]rics.com/dotNet/doc uments/?[email or web address] STAFF SIGNATURE: Avelino Coffman MD DATE: July 14, 2024 TIME: 4:02 PM BX. COORDINATOR INFORMATION LAB RESULTS: PT INR (no units) Date Value 06/11/2021 1.0 INR (no units) Date Value 06/16/2024 1.1 APTT (sec) Date Value 06/16/2024 26.8 06/11/2021 25.5 Platelet Count (k/uL) Date Value 06/16/2024 308 06/11/2021 275 Current Outpatient Medications Medication Sig empagliflozin (JARDIANCE) 25 mg tablet Take 1 tablet by mouth daily with breakfast. pravastatin (PRAVACHOL) 80 mg tablet Take 1 tablet by mouth once daily. blood sugar diagnostic ([employer] PRECISION ADDISON STRIPS) test strip Use with blood glucose test one time daily insulin lispro (HUMALOG KWIKPEN) 100 unit/mL Inject 15 units with breakfast and lunch and 20 units with dinner plus sliding scale (Max daily dose of 91 units daily) amLODIPine (NORVASC) 10 mg tablet Take 10 mg by mouth. flash glucose sensor (VANCLSTYLE MARY ANN 2 SENSOR) kit USE DIRECTED EVERY 14 DAYS lisinopril (ZESTRIL) 20 mg tablet Take 20 mg by mouth once daily. insulin glargine (LANTUS SOLOSTAR U-100 INSULIN) 100 unit/mL (3 mL) Inject 35 Units subcutaneously twice daily. flash glucose scanning reader (VANCLSTYLE MARY ANN 2 READER) Check glucose 4 times daily fluocinonide (LIDEX) 0.05 % ointment Apply to affected areas of rash twice daily x 2 weeks, then once daily x 2 weeks. NOT for face, armpits, or groin Insulin Syringe-Needle U-100 1 mL 25 x 1 syrg Use 1 syringe once daily to administer peg-interferon dose. ibuprofen (MOTRIN) 800 mg tablet No current facility-administered medications for this visit. ALLERGIES Allergen Reactions Opioids - Morphine * Vomiting, GI Upset FILMS SENT TO WORKSTATION: GUIDELINES FOR HOLDING ANTI-PLATELET AND ANTI- COAGULATION THERAPY: none on file NURSE SIGNATURE: Emily Anthony LPN DATE: July 14, 2024 TIME: 12:50 PM STAFF-INITIATED RADIOLOGY BIOPSY / ASPIRATION / DRAIN REQUEST FORM Date: July 14, 2024 Time: 10:59 AM PATIENT CONTACT INFORMATION: Best way to reach patient [phone] SCHEDULING: Date: 09/10/2024 (Specific requests must be greater than 10 business days from the date of request) [facility] (Abdominal / Thoracic / MSK / Neuro): Bone- Biopsy Site: bone marrow biopsy SPECIFICS OF THE REQUEST (Please be as detailed as possible): Bone marrow biopsy and aspirate SPECIAL REQUESTS: TISSUE SAMPLE, LABWORK: Special Requests: kit for trial send out ACTG 192 MEDICAL DIAGNOSIS: CML C92.10 (i.e. Known primary cancer or suspected diagnosis) IMAGING STUDY AND DATE THAT IS THE BASIS OF THE REQUEST: n/a (Note: Requests for random organ biopsies, specifically liver and kidney random biopsies do not need imaging.) IMAGING: n/a (If the imaging was obtained outside the [facility] system, PLEASE upload for review prior to approval.) Note to all persons requesting biopsies: All biopsy requests will be scheduled as quickly as possible, based on the clinical urgency, availability of appointment times, the need to hold anti-thrombolytic therapy (aspirin and other blood thinners) and the patient s schedule, including the need for an available front end driver. If a percutaneous biopsy or drainage is not felt to be safe or an alternative method for establishing a diagnosis is possible, this will be discussed directly with the requesting physician. documented in this encounter [facility] 07-22-2024 History of Present illness Narrative Images from the original note were not included. Chief Complaint: Colon cancer screening History of Present Illness Derrell Avitia Jr. is a 53 y.o. male who presents to the office for colon cancer screening. This is his first colonoscopy. He denies any abdominal complaints including diarrhea, constipation, pain, rectal bleeding. There is a family history of colon cancer in his father diagnosed when he was 73 years old. Review of Systems Constitutional: Negative for fever and unexpected weight change. HENT: Negative for trouble swallowing. Respiratory: Negative for shortness of breath. Cardiovascular: Negative for chest pain. Gastrointestinal: Negative for nausea, vomiting, abdominal pain, diarrhea, constipation and blood in stool. Genitourinary: Negative for dysuria and difficulty urinating. Musculoskeletal: Negative for gait problem. Skin: Negative for rash and wound. Neurological: Negative for dizziness, weakness and light-headedness. Hematological: Does not bruise/bleed easily. Psychiatric/Behavioral: Negative for confusion. Past Medical History: Diagnosis Date CML (chronic myelocytic leukemia) ([facility]) Diabetes mellitus type 2, controlled ([facility]) Hyperlipidemia Hypertension Rash Sleep apnea cpap Visual impairment Past Surgical History: Procedure Laterality Date BACK SURGERY L4-5 fusion CHOLECYSTECTOMY KNEE ARTHROSCOPY Right ROTATOR CUFF REPAIR Right TONSILLECTOMY UVULOPALATOPHARYNGOPLASTY 2000 Allergies Allergen Reactions Morphine Nausea And Vomiting Opioids - Morphine Analogues Nausea And Vomiting Current Outpatient Medications: amLODIPine (NORVASC) 5 mg tablet, Take 1 tablet (5 mg total) by mouth in the morning. (Patient taking differently: Take 2 tablets (10 mg total) by mouth in the morning.), Disp: 90 tablet, Rfl: 3 empagliflozin (JARDIANCE) 25 mg tablet tablet, Take 1 tablet (25 mg total) by mouth in the morning., Disp: , Rfl: FREESTYLE MARY ANN 2 SENSOR kit, every 14 (fourteen) days., Disp: , Rfl: insulin glargine (LANTUS, BASAGLAR) 100 unit/mL (3 mL) insulin pen, Inject 35 Units under the skin in the morning and 35 Units before bedtime., Disp: , Rfl: insulin lispro (HumaLOG) 100 unit/mL insulin pen, 3 (three) times a day with meals. Sliding scale, Disp: , Rfl: lisinopriL (PRINIVIL,ZESTRIL) 20 mg tablet, Take 1 tablet (20 mg total) by mouth in the morning., Disp: , Rfl: NON FORMULARY, Med Name: trial chemo drug, unknown name [id number], Disp: , Rfl: pravastatin (PRAVACHOL) 40 mg tablet, Take 1 tablet (40 mg total) by mouth in the morning., Disp: , Rfl: sod sulf-pot chloride-mag sulf 1.479-0.188- 0.225 gram tablet, Please see instructional sheet given by physicians office., Disp: 24 tablet, Rfl: 0 Social History Socioeconomic History Marital status: Spouse name: Not on file Number of children: Not on file Years of education: Not on file Highest education level: Not on file Occupational History Not on file Tobacco Use Smoking status: Never Smokeless tobacco: Never Vaping Use Vaping status: Never Used Substance and Sexual Activity Alcohol use: Yes Comment: social, rare Drug use: No Sexual activity: Defer Other Topics Concern Caffeine Use Yes Social History Narrative Not on file Social Drivers of Health Financial Resource Strain: Not on file Food Insecurity: No Food Insecurity (05/19/2024) Hunger Screening Food Insecurity - Worry: Never True Food Insecurity - Inability: Never True Transportation Needs: Not on file Physical Activity: Not on file Stress: Not on file Social Connections: Not on file Interpersonal Safety: Unknown (07/31/2023) [facility] [place] Safety & Environment Fear of Current or Ex-Partner: Not on file Emotionally Abused: Not on file Physically Abused: Not on file Sexually Abused: Not on file Physically or Sexually Abused: Not on file Housing Instability: Not on file Family History Problem Relation Age of Onset Diabetes Mother Heart disease Father Diabetes Father Colon cancer Father Objective Physical Exam Constitutional: General: He is not in acute distress. Appearance: Normal appearance. He is not ill-appearing. HENT: Head: Normocephalic and atraumatic. Mouth/Throat: Mouth: Mucous membranes are moist. Eyes: Pupils: Pupils are equal, round, and reactive to light. Cardiovascular: Rate and Rhythm: Normal rate. Pulmonary: Effort: Pulmonary effort is normal. No respiratory distress. Abdominal: General: There is no distension. Musculoskeletal: General: Normal range of motion. Skin: General: Skin is warm and dry. Neurological: Mental Status: He is alert and oriented to person, place, and time. Mental status is at baseline. Vital Signs: Blood pressure 135/70, pulse 68, weight 117.4 kg (258 lb 12.8 oz). Respiratory Source: No data recorded Admission Weight: Weight: 117.4 kg (258 lb 12.8 oz) Labs Lab Results Component Value Date WBC 12.5 (H) 12/02/2023 HGB 15.9 12/02/2023 HCT 46.4 12/02/2023 MCV 79 (L) 12/02/2023 PLT 303 12/02/2023 Lab Results Component Value Date GLU 178 (H) 12/02/2023 CALCIUM 9.8 12/02/2023 K 4.4 12/02/2023 CO2 27 12/02/2023 CL 99 12/02/2023 BUN 13 12/02/2023 CREATININE 0.65 12/02/2023 No results found for: AMYLASE Lab Results Component Value Date LIPASE 52 (H) 06/29/2019 Lab Results Component Value Date ALT 37 06/29/2019 AST 32 06/29/2019 ALKPHOS 136 (H) 06/29/2019 Lab Results Component Value Date INR 1.0 12/02/2023 INR 1.2 06/29/2019 PROTIME 11.6 12/02/2023 PROTIME 13.3 (H) 06/29/2019 Assessment First screening colonoscopy Family history of colon cancer in father Plan Colonoscopy with possible biopsy and/or polypectomy. Risks, benefits, and alternatives discussed with patient. Educated on bowel evacuation preparation. Patient verbalizes understanding and wishes to proceed. Evaluation included: Preparing to see the patient (e.g., review of tests) Obtaining and/or reviewing separately obtained history Performing a medically appropriate examination and/or evaluation Counseling and educating the patient/family/caregiver Referring and communicating with other health director medicare sales Encounter for screening colonoscopy [Z12.11] FANNY VALLEJO [facility] [place] This note was created with the assistance of a speech recognition program. While intending to generate a timely document that accurately reflects the content of the visit, no guarantee can be provided that every grammatical or spelling mistake has been or will be identified or corrected. Thank you for your understanding. FANNY Vallejo 07/22/24 1106 documented in this encounter [facility] 07-21-2024 Telephone encounter Note Returned patients call about his symptoms of difficulty swallowing pasta and rice and inquiring if it is study drug related. Patient was advised that per that those symptoms are not study drug related and to reach out to his PCP. He will need to be evaluated. Educated the patient to avoid those foods and to take small bites and chew thoroughly and avoid foods that are dry or thick consistency like peanut butter. Patient verbalized understanding. [facility] 07-21-2024 Miscellaneous Notes Returned patients call about his symptoms of difficulty swallowing pasta and rice and inquiring if it is study drug related. Patient was advised that per that those symptoms are not study drug related and to reach out to his PCP. He will need to be evaluated. Educated the patient to avoid those foods and to take small bites and chew thoroughly and avoid foods that are dry or thick consistency like peanut butter. Patient verbalized understanding. documented in this encounter [facility] 07-21-2024 Telephone encounter Note Thanks. I would let him and his wrapper caser decide best course of action. [facility] Work Phone: 07-21-2024 Miscellaneous Notes Thanks. I would let him and his wrapper caser decide best course of action. Spoke with pt and he is already working with that restriction of no use of left shoulder/right arm work only. I did advise him to reach out to wrapper caser. States having pain after working and at night. He is [facility]. I think we can give him restrictions to no use the Left shoulder and then it is up to his employer if they tell him to stay home or do one handed work with right arm only... Cannot just take him off work when BW.. He may be off work 12 wks post op with left shoulder . ( Valerie)- see if patient would like us to add restrictions, no use of left arm due to increase pain.. if work is having him do more than he should already he will need to contact his keycase assembler. Patient is scheduled for surgery, but says that he is in a lot of pain wanted to see if we can write him off work until surgery. Please advise? documented in this encounter [facility] 07-21-2024 Telephone encounter Note Spoke with pt and he is already working with that restriction of no use of left shoulder/right arm work only. I did advise him to reach out to wrapper caser. States having pain after working and at night. [facility] 07-21-2024 Telephone encounter Note He is [employer]. I think we can give him restrictions to no use the Left shoulder and then it is up to his employer if they tell him to stay home or do one handed work with right arm only... Cannot just take him off work when [facility].. He may be off work 12 wks post op with left shoulder . ( Valerie)- see if patient would like us to add restrictions, no use of left arm due to increase pain.. if work is having him do more than he should already he will need to contact his keycase assembler. [facility] 07-21-2024 Telephone encounter Note Patient is scheduled for surgery, but says that he is in a lot of pain wanted to see if we can write him off work until surgery. Please advise? [facility] 07-19-2024 Telephone encounter Note Order incorrect, paged Dr. Howell. --->Or, I have a biopsy request for [place] [id number] and the order is incorrect. Please place order # [id number]. Margarita Joseph [id number] [facility] 07-14-2024 Telephone encounter Note RADIOLOGIST REQUEST / APPROVAL FORM STAFF RADIOLOGIST: Dr. Marks PROCEDURE TO BE DONE UNDER: CT PROCEDURE REQUESTED: CORE Requested PROCEDURE: Approved TIME SLOT NEEDED: 1 Hour NOTES: bmbx, CML, clinical trial SPECIAL LABS/ PROCESSING: kit for trial send out ACTG 2430 Pre-procedure labs: CBC: not needed INR: not needed COVID: not needed SIR Bleeding risk category for this procedure: low risk. Reference from [facility] Cable Braider: [email or web address] STAFF SIGNATURE: Avelino Coffman MD DATE: July 14, 2024 TIME: 4:02 PM [facility] Work Phone: 07-14-2024 Telephone encounter Note BX. COORDINATOR INFORMATION LAB RESULTS: PT INR (no units) Date Value 06/11/2021 1.0 INR (no units) Date Value 06/16/2024 1.1 APTT (sec) Date Value 06/16/2024 26.8 06/11/2021 25.5 Platelet Count (k/uL) Date Value 06/16/2024 308 06/11/2021 275 Current Outpatient Medications Medication Sig empagliflozin (JARDIANCE) 25 mg tablet Take 1 tablet by mouth daily with breakfast. pravastatin (PRAVACHOL) 80 mg tablet Take 1 tablet by mouth once daily. blood sugar diagnostic (VANCLSTYLE PRECISION ADDISON STRIPS) test strip Use with blood glucose test one time daily insulin lispro (HUMALOG KWIKPEN) 100 unit/mL Inject 15 units with breakfast and lunch and 20 units with dinner plus sliding scale (Max daily dose of 91 units daily) amLODIPine (NORVASC) 10 mg tablet Take 10 mg by mouth. flash glucose sensor (VANCLSTYLE MARY ANN 2 SENSOR) kit USE DIRECTED EVERY 14 DAYS lisinopril (ZESTRIL) 20 mg tablet Take 20 mg by mouth once daily. insulin glargine (LANTUS SOLOSTAR U-100 INSULIN) 100 unit/mL (3 mL) Inject 35 Units subcutaneously twice daily. flash glucose scanning reader (VANCLSTYLE MARY ANN 2 READER) Check glucose 4 times daily fluocinonide (LIDEX) 0.05 % ointment Apply to affected areas of rash twice daily x 2 weeks, then once daily x 2 weeks. NOT for face, armpits, or groin Insulin Syringe-Needle U-100 1 mL 25 x 1 syrg Use 1 syringe once daily to administer peg-interferon dose. ibuprofen (MOTRIN) 800 mg tablet No current facility-administered medications for this visit. ALLERGIES Allergen Reactions Opioids - Morphine * Vomiting, GI Upset FILMS SENT TO WORKSTATION: GUIDELINES FOR HOLDING ANTI-PLATELET AND ANTI- COAGULATION THERAPY: none on file NURSE SIGNATURE: Emily Anthony LPN DATE: July 14, 2024 TIME: 12:50 PM [facility] 07-14-2024 Telephone encounter Note STAFF-INITIATED RADIOLOGY BIOPSY / ASPIRATION / DRAIN REQUEST FORM Date: July 14, 2024 Time: 10:59 AM PATIENT CONTACT INFORMATION: Best way to reach patient [phone] SCHEDULING: Date: 09/10/2024 (Specific requests must be greater than 10 business days from the date of request) RADIOLOGY SERVICE GROUP (Abdominal / Thoracic / MSK / Neuro): Bone- Biopsy Site: bone marrow biopsy SPECIFICS OF THE REQUEST (Please be as detailed as possible): Bone marrow biopsy and aspirate SPECIAL REQUESTS: TISSUE SAMPLE, LABWORK: Special Requests: kit for trial send out ACT 1920 MEDICAL DIAGNOSIS: CML C92.10 (i.e. Known primary cancer or suspected diagnosis) IMAGING STUDY AND DATE THAT IS THE BASIS OF THE REQUEST: n/a (Note: Requests for random organ biopsies, specifically liver and kidney random biopsies do not need imaging.) IMAGING: n/a (If the imaging was obtained outside the [facility] system, PLEASE upload for review prior to approval.) Note to all persons requesting biopsies: All biopsy requests will be scheduled as quickly as possible, based on the clinical urgency, availability of appointment times, the need to hold anti-thrombolytic therapy (aspirin and other blood thinners) and the patient s schedule, including the need for an available front end driver. If a percutaneous biopsy or drainage is not felt to be safe or an alternative method for establishing a diagnosis is possible, this will be discussed directly with the requesting physician. [facility] 07-06-2024 History of Present illness Narrative Images from the original note were not included. HISTORY OF PRESENT ILLNESS: EST PT Derrell Avitia is an 53 y.o. @ male. EST PT; S/P RT SHOULDER SCOPE 12/09/23 (~7MO) -RECHECK STRENGTH/ROM; DOING WELL PT HAS BEEN APPROVED BY [facility] FOR LT SHOULDER SCOPE EMG RT UE 02/26/24 [facility] PT FM- P/O MINIMAL OCCASIONAL DISCOMFORT WHEN OVER DOES- GOOD ROM/STRENGTH- CONTINUES TO HAVE N/T RT LF/RF; DENIES IMPROVEMENT WITH FINGERS-PT IS PLEASED WITH PROGRESS RT SHOULDER HX OF HAND SYMPTOMS; SYMPTOMS STARTED ~2WKS P/O IN [place] (~12/24/23) ALLERGIES: Allergies Allergen Reactions Morphine GI intolerance HOME MEDICATIONS: Current Outpatient Medications Medication Instructions amLODIPine (NORVASC) 10 mg, Oral, Daily B-D UF III MINI PEN NEEDLES 31G X 5 MM [facility] [place] Blood Gluc Resaw Feeder ([employer] Mary Ann 2 [place]) device USE DIRECTED TO CHECK GLUCOSE FOUR TIMES DAILY empagliflozin (JARDIANCE) 25 mg, Oral, Daily with breakfast FreeStyle Precision Addison Test test strip 1 each, Daily insulin glargine (Lantus SoloStar) 100 UNIT/ML pen 35 units twice a day insulin lispro (HumaLOG) 100 UNIT/ML injection 10 units for at breakfast and lunch, and 22 units at dinner time, plus sliding scale. Max 78 units per daily lisinopril 20 mg, Oral, Daily pravastatin (PRAVACHOL) 80 mg, Oral, Daily PHYSICAL EXAM: Shoulder Musculoskeletal Exam Inspection Right Right shoulder inspection is normal. Ecchymosis: none Peripheral edema: none Atrophy: none Masses: none Palpation Right Right shoulder palpation is normal. Crepitus: no crepitus Increased warmth: none Tenderness: none Range of Motion Right Right shoulder range of motion is normal. Active ROM: normal and no pain. Passive ROM: normal and no pain. Active forward elevation: 180. Passive forward elevation: 180. Shoulder active abduction: 150. Passive abduction: 150. Active external rotation at side: 90. Passive external rotation at side: 90. Active internal rotation in abduction: 90. Passive internal rotation in abduction: 90. Internal rotation: T10. Strength Right External rotation: 5/5. Internal rotation: 5/5. Abduction: 5/5. Biceps: 5/5. Triceps: 5/5. Neurovascular Right Radial pulse: normal and 2+ Capillary refill: <3 sec Axillary nerve sensory distribution: normal Scapula Right Right shoulder scapula is normal. Position: normal Winging: none Special Tests Right Rotator Cuff Signs Neer's test: negative Espinosa test: negative Biceps/chika Signs Speed's test: negative AC Joint Signs Active horizontal adduction pain: negative General Constitutional: appears stated age Labored breathing: no Neurological: alert and oriented x3 Vitals: There is no height or weight on file to calculate BMI. Tobacco Use: Low Risk (06/16/2024) Received from [facility] Patient History Smoking Tobacco Use: Never Smokeless Tobacco Use: Never Passive Exposure: Not on file Alcohol Use: Not on file IMAGING: Procedures No orders of the defined types were placed in this encounter. ASSESSMENT: No diagnosis found. PLAN: Patient is here for recheck of his right shoulder and right hand. States his hand is slightly improved with numbness and tingling. We'll continue to monitor his progress on his right hand. He is very pleased with his range of motion and strength in his right shoulder. He is scheduled for a left shoulder arthroscopy, which we saw him for previously. We'll see him back on the day of surgery for that. Questions answered in laymen terms at the bedside. The diagnosis, home exercise plan and any ongoing restrictions/ recommendations reviewed. If unable to be reached in office, I recommend evaluation at nearest Emergency Room if any symptoms worsened or new symptoms develop for requiring urgent evaluation. documented in this encounter [facility] 06-18-2024 History of Present illness Narrative Images from the original note were not included. HISTORY OF PRESENT ILLNESS: EST PT Derrell Avitia is an 53 y.o. @ male. CLAIM -[id number] ([employer] CLAIM [id number]) APPROVED DX : S43.402A EST PT, NEW PROBLEM; *BW* (L) SHOULDER PAIN- DOI 05/19/24. (4 WEEKS, 2 DAYS); PAIN AFTER A FALL, HE TRIPPED AT WORK LANDING ON SHOULDER. XRAY (L) SHOULDER 05/19/24 - [facility] [place] [facility] [place] NO INJ NO P.T NO PAIN MANAGEMENT PAIN IS ANTERIOR SHOULDER, COMES AND GOES. MOVEMENT MAKES PAIN WORSE. LIMITED ROM. DIFFICULTY WITH ABDUCTION, OVERHEAD, REACHING BEHIND. TAKING TYL AND IBU FOR PAIN NEEDED. HE HAS USED ICE. DENIES N/T. DENIES SWELLING. +POPPING. +WEAKNESS. +STIFFNESS. 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 HX (R) SHOULDER SCOPE (RCR REPAIR) 12/09/23- DR. KILPATRICK HX (R) KNEE SCOPE(MENISCUS REPAIR) 1998- DR. KILPATRICK ALLERGIES: Allergies Allergen Reactions Morphine GI intolerance HOME MEDICATIONS: Current Outpatient Medications Medication Instructions amLODIPine (NORVASC) 10 mg, Oral, Daily B-D UF III MINI PEN NEEDLES 31G X 5 MM [facility] [place] Blood Gluc Resaw Feeder ([employer] Mary Ann 2 [place]) device USE DIRECTED TO CHECK GLUCOSE FOUR TIMES DAILY empagliflozin (JARDIANCE) 25 mg, Oral, Daily with breakfast FreeStyle Precision Addison Test test strip 1 each, Daily insulin glargine (Lantus SoloStar) 100 UNIT/ML pen 35 units twice a day insulin lispro (HumaLOG) 100 UNIT/ML injection 10 units for at breakfast and lunch, and 22 units at dinner time, plus sliding scale. Max 78 units per daily lisinopril 20 mg, Oral, Daily pravastatin (PRAVACHOL) 80 mg, Oral, Daily PHYSICAL EXAM: Shoulder Musculoskeletal Exam Inspection Left Left shoulder inspection is normal. Ecchymosis: none Peripheral edema: none Atrophy: none Masses: none Palpation Left Crepitus: mild Increased warmth: none Tenderness: present Anterior shoulder: mild Bicipital groove: moderate Range of Motion Left Left shoulder range of motion is normal. Active ROM: pain. Passive ROM: pain. Active forward elevation: 90. Passive forward elevation: 160. Shoulder active abduction: 90. Passive abduction: 160. Active external rotation at side: 40. Passive external rotation at side: 50. Internal rotation: L1. Strength Left External rotation: 5/5. Internal rotation: 5/5. Abduction: 3/5. Biceps: 5/5. Triceps: 5/5. Neurovascular Left Radial pulse: normal and 2+ Capillary refill: <3 sec Axillary nerve sensory distribution: normal Scapula Right Right shoulder scapula is normal. Left Left shoulder scapula is normal. Position: normal Winging: none Special Tests Left Rotator Cuff Signs Neer's test: positive Espinosa test: positive Painful arc test: positive Biceps/chika Signs Speed's test: positive General Constitutional: appears stated age Neurological: alert and oriented x3 Vitals: There is no height or weight on file to calculate BMI. Tobacco Use: Low Risk (06/16/2024) Received from [facility] Patient History Smoking Tobacco Use: Never Smokeless Tobacco Use: Never Passive Exposure: Not on file Alcohol Use: Not on file IMAGING: Procedures No orders of the defined types were placed in this encounter. ASSESSMENT: ICD-10-CM 1. Sprain of left shoulder, initial encounter S43.402A 2. Tear of left supraspinatus tendon M75.102 3. Bicipital tendinitis of left shoulder M75.22 PLAN: I discussed his MRI with him at length and the possibility that his tear may be irreparable. The patient is requesting a diagnostic and operative arthroscopy of his left shoulder our nearest convenience for rotator cuff repair, We will see him back on the day of surgery for left shoulder arthroscopy. We have discussed both surgical and nonsurgical treatment options with the patient at length and the risks and benefits associated with both. The patient is requesting surgical intervention because they have not responded to outpatient treatment options including but not limited to rest ice, and home exercise program. Pain and decreased range of motion are affecting the patient's ability to sleep and activities of daily living and we have recommended surgical intervention. Questions answered in laymen terms at the bedside. The diagnosis, home exercise plan and any ongoing restrictions/ recommendations reviewed. If unable to be reached in office, I recommend evaluation at nearest Emergency Room if any symptoms worsened or new symptoms develop for requiring urgent evaluation. documented in this encounter [facility] 06-16-2024 History of Present illness Narrative [facility] 1 Documentation IRB#: [id number], [facility]# ACTG 1920, Study Title: A phase 1b study of the pharmacokinetics, safety and efficacy of orally administered [id number] in subjects with refractory chronic myeloid leukemia (CML). Informed Consent signed on 06/19/2020, prior to any study related procedures being performed that are not SOC. Pt Study #: 016-002 Treatment Arm: CML CP and AP Patient presents for: Cycle 51 Day 28 The following research tasks have been completed per protocol: Quality of life questionnaire: Not Required VS completed: No EKGs (Triplicate): Yes Routed to RN/LARA Tuttle RN for review. Clare Ortiz, Research Coordinator documented in this encounter [facility] 06-16-2024 History of Present illness Narrative [facility] Department of Hematologic Oncology and Blood Disorders PATIENT NAME: Derrell Hsu [facility] NO: [id number] Date of service: 06/16/2024 Reason for visit: Follow up of CML on clinical trial, ACTG 1920 Diagnosis: 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 (imatinib, dasatinib, nilotinib, bosutinib and ponatinib) Current Treatment - On a clinical trial - ACTG 1920 20-607 Title: A phase 1b study of the pharmacokinetics, safety and efficacy of orally administered [id number] in subjects with refractory chronic myeloid leukemia (CML). Day 1 was 06/19/2020. Cycle 5 scheduled to start on 10/13/2020 was delayed to elevated lipase levels. Today is day 28 of cycle 51. He is being dosed at 30 mg [...] reduction) 01/22/2023 - 0.7883% (2.1 log reduction) 04/16/2023 - 0.3411% (2.47 log reduction) 07/09/2023 - 0.3748% (2.43 log reduction) 10/01/2023 - 0.2311% (2.64 log reduction) 03/17/2024 - 0.1818% 06/16/2024 - in process Interval History - He has being doing well overall and continues to work. He recently had a fall and suffered left rotator cuff tear for which he is scheduled to see an orthopedic surgeon on 06/18/2024 for possible surgical repair. 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 He has completed 50 cycles. He achieved early 3 month molecular response and serial bone marrow biopsies done as part of the clinical trial protocol on 09/15/2020, 12/22/2020, 06/15/2021, 11/29/2021, 05/16/2022, 10/12/2022, 04/18/2023, 10/03/2023 and 03/19/2024 shows him to be in CCyR. He bcr-abl levels has been fluctuating between 0.1 and 0.3 since April of 2023 (close to MMR). He is tolerating it with no disabling or significnt side effects. He is on 30 mg once every other day. Will continue on the study and follow up as per clinical trial protocol. 2) Hypertension - On amlodipine and lisinopril. Continued follow up with his PCP. 3) Severe obstructive sleep apnea - Confirmed on polysomnography test done on 12/21/2017. He has been recommended CPAP but does not use it. 5) History of psoriasiform dermatitis / pruritic papular erythematous rash on trunk - Responds to fluocinonide topical ointment during flare ups. Unlikely this is related to the study drug for two reasons - it is intermittent and a long history of intermittent outbreaks of rash. 6) Diabetes mellitus - On long and short acting insulin and empagliflozin. He needs to follow with his PCP and needs annual screening for diabetic neuropathy, retinopathy and renal disease. 7) History of intermittent mild hyponatremia - Likely study-drug related based on the temporality of onset coinciding with initiation of the study drug. Sodium level pending from today. 8) History of elevated lipase and history of pancreatitis while on ponatinib - Close monitoring. Lipase levels fro today in process. 9) Hypercholesterolemia and hypertriglyceridemia - He has underlying risk factors for CAD and CVA. His cholesterol and triglycerides remains high. He remains on pravastatin. Continued monitoring. Although he has elevated levels of high-sensitivity troponin , it is within the normal range following conversion to older troponin measurememts. He is followed by Cardiology. 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 CBC with differential from the same [place] [address], [place] [address], monocytosis (5700), 6700 lymphocytes, 500 basophils and thrombocytopenia with platelets at 217852. Metaphase cytogenetics showed presence of t(9;22) in [...] trilineage hematopoiesis, decreased iron stores. Cytogenetics showed 46,XY,t(9;22)(q34;q11.2)[3]/46,XY[17] , consistent with failure to achieve CCyR. BCR-ABL [...] pharmacokinetics, safety and efficacy of orally administered [id number] in subjects with refractory chronic myeloid leukemia [...] delayed due to elevated lipase. He was exposed to poison radha in September and broke out in rash around his left eye, face, trunk and chest for which he completed a short course of dexamethasone. - Serial bone marrow biopsies done as part of the clinical trial protocol on 09/15/2020, 12/22/2020, 06/15/2021, 11/29/2021, 05/16/2022, 10/12/2022, 04/18/2023, 10/03/2023 and 03/17/2024 shows he remains in CCyR. Review of systems: Constitutional: No fever, anorexia or malaise. + Chronic stable fatigue (rates it as 3-4/10 with 10 being the worst). Is gainfully employed and continues to work. Eyes: No change in vision, blurriness, diplopia, redness, or irritation. ENT: No mouth sores or bleeding gums; no hoarseness of voice. No epistaxis or other nasal problems. No changes in hearing, vertigo, or tinnitus. Respiratory: No shortness of breath, coughing, wheezing, dyspnea at rest, exertional dyspnea, or hemoptysis. Cardiovascular: No chest pain, palpitations, orthopnea, PND, syncopal events or presyncopal events. Gastrointestinal: No nausea, no vomiting, heartburn or acid reflux, constipation or abdominal cramping. Bowel habit is unchanged; and no melena or hematochezia. Genitourinary: No urgency, frequency, dysuria, or hematuria. Musculoskeletal: + stable chronic joint pains/arthritis. Unrestricted ambulation. Skin: No rashes or suspicious lesions. Has intermittent flare ups of psoriasiform dermatitis / pruritic papular erythematous rash - currently has on back of left arm and chest Neurological: No syncope, near-syncope, or seizures; no headaches or alteration in sensorium or motor strength. Psychiatric: Memory, short term & chcf intact; no disturbance in sleep pattern and [...] chronic pruritis rash for > 10 years - right rotator cuff repair surgery in December of 2023 Current medication: Reviewed from [facility] and integrated in assessment and plan. Social History: He is . 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 He does not smoke cigarettes and has [...] radiation therapy, chemotherapy. Physical Examination: Vitals: BP 144/79 Pulse 73 Temp 36.7 C (98 F) (Oral) Resp 16 Ht 179.5 cm (5' 10.67 ) Wt 116 kg (255 lb 11.7 oz) SpO2 98% BMI 36.00 kg/m ECOG PERFORMANCE STATUS: 1- Restricted in physically strenuous activity. Carries out light duty. Gen: Awake, alert, oriented x 3, NAD, accompanied by his Skin: Rash on back of left arm and chest HEENT: sclera anicteric, EOMI, PERRL. MMM Lungs: CTAB, no cough. Heart: RRR, no murmurs. WWP Abdomen: protuberant, soft, +BS- non-tender - spleen not palpable but difficult due to body habitus Extremities: No edema Labs: Reviewed and in [facility] William Howell MD PhD MPH Associate Staff Hematologic Oncology and Blood Disorders Pager [phone] Date of service: 06/16/2024 I spent a total of 40 minutes on the date of the service which included preparing to see the patient, [id number] patient care, completing clinical documentation, obtaining and/or reviewing separately obtained history, performing a medically appropriate examination, counseling and educating the patient/family/caregiver, ordering medications, tests, or procedures, independently interpreting laboratory and imaging results (not separately reported), communicating results to the patient/family/caregiver, and care coordination (not separately reported). Additional intake questions: Has the patient had fever, nausea, vomiting, diarrhea, constipation, fatigue for > 1 week? Yes, fatigue and Provider Notified Does the patient have a decreased appetite? No Does patient want to see a Concrete [employer]ber? No (yes to any of above refer patient to schedulers for dietitian appointment) ) Does patient have any new or increased numbness or tingling of extremities? No Is patient interested in fertility information? No Does patient need any prescription refills? No Does patient have an advanced directive in place? No, Patient refused referral to Social Work or Resource Center documented in this encounter [facility] 06-16-2024 History of Present illness Narrative Summary: ACTG 1920 / 20-998 cycle 51 day 28 ACTG 1920 20-998 A phase 1b study of the pharmacokinetics, safety and efficacy of orally administered [id number] in subjects with refractory chronic myeloid leukemia [...] participate on the study by the sponsor 06/16/2024 Cycle 51 day 28 Subject #: 016-002 Patient met with research team, pleasant and engaged in conversation. Patient denies any side effects to report. Pt had rotator cuff surgery on 12/09/2023 and currently has a new left shoulder injury. Patient reported that he fell at work and the MRI determined that he tore his rotator cuff. Patient has an appointment with a surgeon this week. denies sob, chest pain, n/v/d. reviewed with the patient that he is in a complete cytogenic response. The plan of care was discussed and to continue on clinical trial. Patient was provided new consent and discussed updates with the patient, patient re consented voluntarily see consent documentation. Patient verbalized understanding and is in agreement. Dr. Howell reviewed all labs and AE's. ECHO LVEF 59% BMBx: to be scheduled for end of August early September 2024. EK ms, 427 ms, 425 ms PE: Dr. Howell ECO VS: 06/16/24 Weight 116 kg (255 lb 11.7 oz) Height 179.5 cm (5' 10.67 ) BSA 2.4 BMI 36 Temp 36.7 C (98 F) Pulse 73 Resp 16 BP 144/79 [1] SpO2 98 % [1] Left arm sitting PAST MEDICAL HISTORY Diagnosis Date Status CML [...] floaters in both eyes (eye exam 05/05) [id number] Active no medication or treatment Diabetes 12/2019 Active controlled with medication Rash 11/2019 Active uncontrolled,medication to start 05/29/2020 PAST SURGICAL HISTORY BACK SURGERY HX L4 and L5 infusion Prior to 03/2012 [place] ANESTH,KNEE JOINT; NOS right knee Prior to [...] 03/2016 Bosutinib 03/2016 - 05/02/2017 [facility] 2915 15-875 trial of Ponatinib 05/21/2017 - [...] on 03/2019 noted 9.5% IS. 10/30/2022 BCR/ABL1 P210 %IS 1.1278 01/22/2023 BCR/ABL1 P210 %IS .78 04/16/2023 BCR/ABL1 P210 %IS .34 07/09/2023 BCR/ABL1 P210 %IS .37 10/01/2023 BCR/ABL1 P210 %IS .23 12/24/2023 BCR/ABL1 P210 %IS .52 03/17/2024 BCR/ABL1 P210 %IS .18 Medications: NKA Medication Dose Start Date Stop Date Comments Ibuprofen 800 mg once daily as needed per patient 10/2015 For general body aches Insulin Lantus 35 units daily Per patient 10/2022 For diabetes Kenalog cream Apply 2x/day to affected areas. 05/29/2020 For rash Lovaza (2) 1gm capsules orally 2x/day 06/22/2020 on hold restarted 09/03/2021 Hypertriglyceridemia Advil 400 mg orally every 6 hours as needed 07/10/2020 For headache Lidex ointment 0.05% Apply twice daily for 2 weeks, then once daily for 2 weeks For rash. Do not apply to face, armpits or groin Colace 100 mg orally once a day as needed 06/07/2021 Constipation Norvasc 10 mg orally once a day 05/22/2023 Blood pressure Lispro (insulin) 15 units breakfast and lunch, 20 units at dinner 06/2023 Diabetes Sliding scale insulin with Humalog If Blood Glucose (mg/dL) is <150 Give 0 units 151-200 Give 2 unit 201-250 Give 4 units 251-300 Give 6 units 301-350 Give 8 units 351-400 Give 10 units >400 Give 12 units and notify provider 07/15/2022 DM Jardiance 25 mg orally once a day with breakfast 12/2023 Diabetes Glipizide 5 mg orally once day before breakfast 11/2023 Diabetes Pravastatin 80 mg orally once a day 08/29/2023 Cholesterol Lisinopril 20 mg orally once a day 09/09/2022 Bllod pressure Discontinued medications Hydrea 500 mg 2 capsules by mouth [...] days then stop. 05/22/2020 05/26/2020 For leukocytosis Hydrea (2) 500 mg capsules orally 2x/day 06/12/2020 06/16/2020 For leukocytosis Hydrea (2) 500 mg capsules orally 3x/day 06/16/2020 06/17/2020 For leukocytosis Decadron 4 mg orally 10/06/2020 For poison radha Norvasc 5 mg orally once a day 05/13/2022 05/22/2023 Blood pressure Hart[place] 5/325 mg 1 tab PO x 1 05/16/2022 05/16/2022 Hand pain Zofran 4 mg 4 mg IV x 1 05/16/2022 05/16/2022 Nausea LR 1L 1L IV over one hr x1 05/16/2022 05/16/2022 Dizziness Hydrocodone-Acetaminophen Take 1 tab orally every 6 hours 08/06/2023 08/15/2023 Broken teeth Amoxicillin 500 mg orally three times a day 08/06/2023 08/15/2023 Lip infection Cephalexin 500 mg PO every 6 hrs x 7 days 10/10/2023 10/15/2023 Left hand cellulitis Doxycycline 100 mg PO BID x 7 days 10/10/2023 10/15/2023 Left hand cellulitis Farxiga 10 mg orally once a day 04/17/202311/2023 Diabetes Toxicities: CTCAE V. 5 SCREENING all predate [...] treat: no. Outcome: present intermittently Fasting labs 06/16/2024: CTCAE v.5 Hypertension Grade 1 Unrelated Start [...] Drugs used to treat: ibuprofen Outcome: present Left shoulder pain Grade 1 Unrelated Start date:05/19/2024 Resolved: ongoing Drugs used to treat: ibuprofen Outcome: present Hyponatremia Grade 1 Unrelated Start date 01/22/2023 Resolved:12/24/2023. Drugs used to treat:no. Outcome: resolved. Broken teeth Grade 1 Start date 08/06/2023 Resolved:ongoing. Drugs used to treat:yes. Outcome: still present. Alkaline phosphatase increased (347) Grade 2. Possibly Related (03/17/2024) Start date: 12/24/2023. Resolve date: ongoing. Drugs to treat: none. Outcome: still present. Baseline abnormal value of 136 on 06/19/2020. Alanine aminotransferase increased Grade 1. UNRELATED. Start date: 12/24/2023. Resolve date: ongoing. Drugs to treat: none. Outcome: still present Resolved AE's: Hypertriglyceridemia Grade 3 Unrelated(prior [...] treat: no. Outcome:resolved. Constipation Grade 1 Unrelated Startdate:06/22/20.Resolved:06/23/2020. Drugs used to treat: no. Outcome: resolved. Hypoalbuminemia Grade 1 Unrelated Startdate:06/22/20.Resolved:07/17/2020r ugs used to treat: no. Outcome: resolved. Platelet count decreased Grade 1 Possibly related Startdate:07/13/20.Resolved:07/26/2020. Drugs used to treat: no. Outcome: resolved. Headache Grade 1 Possibly related Startdate:07/10/2020.Resolved:08/14/2020. Drugs used to treat:yes. Outcome: resolved. Lipase [...] 05/2022. Drugs to treat: norco. Outcome: resolved Lip infection Grade 1 Start date 08/06/2023 Resolved:08/15/2023. Drugs used to treat:yes. Outcome: resolved. Hand cellulitis Grade 2. UNRELATED. Start date: 10/10/2023. Resolve date: 10/15/2023. Drugs to treat: cephalexin, doxycycline. Outcome: resolved Skin and subcutaneous tissue disorders-Other, specify Right heal callus Grade 1 Unrelated Start date 09/17/2023 Resolved:12/2023. Drugs used to treat:yes. Outcome: resolved. Patients last dose of study drug was 06/14/2024 Next dose due on 06/16/2024 patient stated he will dose 30 min after his meal when he gets home today. Re-educated patient on how to complete the [...] Patient verbalized understanding of all information provided. 06/16/2024 Patient returned drug diary from previous visit completed. New predated drug diary given. Patient returned: 3 bottles, 2 empty and 1 bottle with 45 tablets. The count is accurate. 06/16/2024 Patient was given drug: yes. 3 bottles of drug. 60 pills per bottle of 10 mg pills. To be dosed with 30 mg of HQP every other day. Lot# [id number] Patient aware next appointment is 09/08/2024 can be viewed on [employer]. Patient presented today to participate on the trial ACTG 1920 / IRB 20-998. Patient understands that he must call nurse [...] nurse's contact information and after hours fellows environmental technical officer. Patient understands that this participation is voluntary and that he may withdraw at any time during the trial. Emma Tuttle RN,OCN documented in this encounter [facility] 06-10-2024 Miscellaneous Notes Called [facility] regarding the screening colonoscopy referral that our office received from Buffy Chung NP, left a message on voicemail to call the office back to schedule an appointment. Also called on: 06/08 LM TR 06/04 LM SE documented in this encounter [facility] 06-10-2024 Telephone encounter Note Called Everardo regarding the screening colonoscopy referral that our office received from Buffy Chung NP, left a message on voicemail to call the office back to schedule an appointment. Also called on: 06/08 LM TR 06/04 LM SE [facility] 05-31-2024 History of Present illness Narrative Associated Problem(s): Colon cancer screening Refer to sergey Pt has a complete tare of the left bravo cuff Pt has a retinopathy screening on [id number] Images from the original note were not included. Derrell Avitia is a 53 y.o. male presents with chief complaint of Diabetes HPI: CGM: 7 day average 118, 100% time in range 14 day average: 77% time in range, 22% (181-240), 6% >240 30 day average: 162 67% time in range, 25% (181-240), 8% >240 90 day average: 161 2% <70, 66% time in range, 24% (181-240), >240 8% Diabetes He presents for his follow-up diabetic visit. He has type 2 diabetes mellitus. There are no hypoglycemic associated symptoms. Pertinent negatives for hypoglycemia include no dizziness, headaches, nervousness/anxiousness, seizures or tremors. Associated symptoms include foot paresthesias. Pertinent negatives for diabetes include no chest pain, no fatigue, no polydipsia, no polyphagia, no polyuria and no weakness. There are no hypoglycemic complications. Symptoms are improving. Diabetic complications include heart disease and peripheral neuropathy. Risk factors for coronary artery disease include diabetes mellitus, dyslipidemia, hypertension, male sex, obesity and sedentary lifestyle. Current diabetic treatment includes oral agent (triple therapy) and insulin injections. An BERT inhibitor/angiotensin II receptor christina is being taken. He does not see a package sealer.Eye exam is not current. Hypertension This is a chronic problem. The current episode started more than 1 year ago. The problem is unchanged. The problem is controlled. Pertinent negatives include no anxiety, chest pain, headaches, palpitations, peripheral edema or shortness of breath. There are no associated agents to hypertension. Risk factors for coronary artery disease include diabetes mellitus, obesity, male gender and sedentary lifestyle. Past treatments include calcium channel blockers and BERT inhibitors. The current treatment provides significant improvement. There are no compliance problems. Hypertensive end-organ damage includes CAD/MT. SUBJECTIVE: MEDICATIONS: Current Outpatient Medications Medication Instructions amLODIPine (NORVASC) 10 mg, Oral, Daily Continuous Blood Gluc Resaw Feeder (FreeStyle [place] 2 [place]) device USE DIRECTED TO CHECK GLUCOSE FOUR TIMES DAILY empagliflozin (JARDIANCE) 25 mg, Oral, Daily with breakfast FreeStyle Precision Addison Test test strip 1 each, Daily glipiZIDE XL (GLUCOTROL XL) 5 mg, Oral, Daily insulin glargine (Lantus SoloStar) 100 UNIT/ML pen 35 units twice a day insulin lispro (HumaLOG) 100 UNIT/ML injection 10 units for at breakfast and lunch, and 22 units at dinner time, plus sliding scale. Max 78 units per daily insulin pen needle (B-D UF III MINI PEN NEEDLES) 31G x 5 mm misc 1 each, Subcutaneous, 2 times daily lisinopril 20 mg, Oral, Daily pravastatin (PRAVACHOL) 80 mg, Oral, Daily ALLERGIES: Allergies Allergen Reactions Morphine GI intolerance Other GI intolerance REVIEW OF SYMPTOMS: Review of Systems Constitutional: Negative for activity change, appetite change, chills, fatigue, fever and unexpected weight change. HENT: Negative for congestion, ear pain, nosebleeds, rhinorrhea, sinus pressure, sneezing, sore throat, trouble swallowing and voice change. Eyes: Negative for pain, discharge and visual disturbance. Respiratory: Negative for apnea, cough, chest tightness, shortness of breath and wheezing. Cardiovascular: Negative for chest pain, palpitations and leg swelling. Gastrointestinal: Negative for abdominal distention, abdominal pain, blood in stool, constipation, diarrhea, nausea and vomiting. Genitourinary: Negative for decreased urine volume, difficulty urinating, dysuria, flank pain and hematuria. Musculoskeletal: Positive for arthralgias. Negative for back pain, joint swelling and myalgias. Skin: Negative for color change, rash and wound. Neurological: Positive for numbness. Negative for dizziness, tremors, seizures, weakness and headaches. Psychiatric/Behavioral: Negative for agitation, decreased concentration, hallucinations, self-injury, sleep disturbance and suicidal ideas. The patient is not nervous/anxious. Hematological: Negative for adenopathy. Does not bruise/bleed easily. Endocrine: Negative for cold intolerance, heat intolerance, polydipsia, polyphagia and polyuria. Allergic/Immunologic: Negative for environmental allergies and food allergies. PAST MEDICAL HISTORY Past Medical History: Diagnosis Date Anemia Arthritis 08/07/2023 At moderate risk for fall Chronic myeloid leukemia (CMS/HCC) Degenerative lumbar disc 08/07/2023 Diabetic neuropathy (CMS/HCC) Gastritis GERD (gastroesophageal reflux disease) Hyperlipidemia (CMS/HCC) Hyponatremia Migraine headache (CMS/HCC) Obesity (BMI 30-39.9) 05/06/2023 Pancreatitis Primary hypertension (CMS/HCC) 05/06/2023 Oncology increase dose on amlodipine since last visit with me Bp much better No changes in med dose at this time Rotator cuff tear, right 08/07/2023 Spondylolisthesis Past Surgical History: Procedure Laterality Date BACK SURGERY [address] ANGIOGRAM HEART CORONARY 06/29/2019 CT ANGIOGRAM TAVR 06/29/2019 CT GUIDED PERCUTANEOUS BIOPSY BONE 12/07/2014 CT GUIDED PERCUTANEOUS BIOPSY BONE KNEE ARTHROPLASTY Right KNEE SURGERY Right 1998 RT KNEE SCOPE PER DR KILPATRICK SHOULDER ARTHROSCOPY Right 12/09/2023 RT SHOULDER SCOPE- DR KILPATRICK SPINE SURGERY TONSILLECTOMY family history includes Alzheimer's disease in an other family member; Diabetes in his father, mother, and another family member; Heart disease in his mother; Hypertension in his father and mother; Stroke in an other family member; cva in an other family member. OBJECTIVE: Visit Vitals BP 120/80 (BP Location: Right arm, Patient Position: Sitting, BP Cuff Size: Adult long) Pulse 69 Temp 98.1 F (Temporal) Resp 18 Ht 5' 10.5 Wt 255 lb 12.8 oz SpO2 96% BMI 36.18 kg/m Smoking Status Never BSA 2.4 m Physical Exam Vitals and nursing note reviewed. Constitutional: Appearance: Normal appearance. He is obese. He is not ill-appearing. HENT: Head: Normocephalic. Right Ear: External ear normal. Left Ear: External ear normal. Nose: Nose normal. Mouth/Throat: Mouth: Mucous membranes are moist. Pharynx: Oropharynx is clear. Eyes: Extraocular Movements: Extraocular movements intact. Conjunctiva/sclera: Conjunctivae normal. Neck: Vascular: No carotid bruit. Cardiovascular: Rate and Rhythm: Normal rate and regular rhythm. Pulses: Normal pulses. Heart sounds: Normal heart sounds. Pulmonary: Effort: Pulmonary effort is normal. Breath sounds: Normal breath sounds. No wheezing, rhonchi or rales. Abdominal: General: Bowel sounds are normal. There is no distension. Palpations: Abdomen is soft. There is no mass. Tenderness: There is no abdominal tenderness. Musculoskeletal: Cervical back: Neck supple. Right lower leg: No edema. Left lower leg: No edema. Skin: General: Skin is warm and dry. Capillary Refill: Capillary refill takes 2 to 3 seconds. Neurological: General: No focal deficit present. Mental Status: He is alert. Psychiatric: Mood and Affect: Mood normal. Behavior: Behavior normal. Thought Content: Thought content normal. Judgment: Judgment normal. ASSESSMENT AND PLAN: Follow up in about 2 months (around 08/01/2024) for Recheck. Problem List Items Addressed This Visit Essential (primary) hypertension (CMS/HCC) Please check blood pressure daily and record DASH diet Limit caffeine Take medication as directed Contact office if chest pain, pressure, dizziness, shortness of breath, swelling legs Recommend slow position changes Current meds: lisinopril, amlodipine Type 2 diabetes mellitus with hyperglycemia, with long-term current use of insulin ([facility]) - Primary Check blood sugars daily, notify if <70 or >200. Take medications (pills or insulin) as directed. Monitor for s/s of hypoglycemia (sweaty, dizziness, nausea, vomiting, or shakiness). Watch for increase in thirst, urination, or appetite. Inspect feet frequently monitoring for open wounds , and also recommend yearly eye exam. Pt should attempt to remain as physically active as chronic conditions allow, as well as trying to follow a diet low in carbohydrates, and simple sugars. Current meds: jardiance, glipizide XL, insulin, bert, statin Current A1c: no due until next month #3 samples Jardiance: 25mg [id number], exp 07/2025 Will try a co pay card Relevant Medications empagliflozin (Jardiance) 25 MG Obstructive sleep apnea (adult) (pediatric) You have a diagnosis of obstructive sleep apnea. It is recommended that you wear your PAP device any time while in bed sleeping. Not using the PAP device can increase your risk of elevated/uncontrolled high blood pressure, atrial fibrillation, heart attack, stroke, or sudden . Does not use PAP Hypertrophic cardiomyopathy ([facility]/HCC) As per cardiology Chronic myeloid leukemia ([facility]) Continue with oncology Would like him to ask if asa 81mg can be started Hyperlipidemia (CMS/HCC) Is on statin therapy Continue yearly labs and prn dose changes Colon cancer screening Refer to [facility] Relevant Orders Ambulatory referral to General Surgery Morbid (severe) obesity due to excess calories (CMS/HCC) Discussed with patient their BMI (actual, verses recommended). We have also discussed lifestyle modifications: attempts to perform physical activity as chronic conditions allow, also to monitor dietary intake: increasing protein/fruits/veggies and lowering carb intake (unless contraindicated). Limit sodas, juices, and sugary drinks. Associated Problem(s): Hyperlipidemia (CMS/HCC) Is on statin therapy Continue yearly labs and prn dose changes Associated Problem(s): Chronic myeloid leukemia (CMS/HCC) Continue with oncology Would like him to ask if asa 81mg can be started Associated Problem(s): Type 2 diabetes mellitus with hyperglycemia, with long-term current use of insulin (CMS/HCC) Check blood sugars daily, notify if <70 or >200. Take medications (pills or insulin) as directed. Monitor for s/s of hypoglycemia (sweaty, dizziness, nausea, vomiting, or shakiness). Watch for increase in thirst, urination, or appetite. Inspect feet frequently monitoring for open wounds , and also recommend yearly eye exam. Pt should attempt to remain as physically active as chronic conditions allow, as well as trying to follow a diet low in carbohydrates, and simple sugars. Current meds: jardiance, glipizide XL, insulin, bert, statin Current A1c: no due until next month #3 samples Jardiance: 25mg [id number], exp 07/2025 Will try a co pay card Associated Problem(s): Morbid (severe) obesity due to excess calories (CMS/HCC) Discussed with patient their BMI (actual, verses recommended). We have also discussed lifestyle modifications: attempts to perform physical activity as chronic conditions allow, also to monitor dietary intake: increasing protein/fruits/veggies and lowering carb intake (unless contraindicated). Limit sodas, juices, and sugary drinks. Associated Problem(s): Hypertrophic cardiomyopathy (CMS/HCC) As per cardiology Associated Problem(s): Essential (primary) hypertension (CMS/HCC) Please check blood pressure daily and record DASH diet Limit caffeine Take medication as directed Contact office if chest pain, pressure, dizziness, shortness of breath, swelling legs Recommend slow position changes Current meds: lisinopril, amlodipine Associated Problem(s): Obstructive sleep apnea (adult) (pediatric) You have a diagnosis of obstructive sleep apnea. It is recommended that you wear your PAP device any time while in bed sleeping. Not using the PAP device can increase your risk of elevated/uncontrolled high blood pressure, atrial fibrillation, heart attack, stroke, or sudden . Does not use PAP documented in this encounter [facility] 05-31-2024 Instructions Buffy Chung NP - 05/31/2024 3:20 PM EST Ask cancer doctor if ok for you to take baby aspirin 81mg daily for help to protect with Diabetes Will refer for colonoscopy Dr Solis Bring in Patient assistance form for Jardiance as well documented in this encounter [facility] 05-10-2024 History of Present illness Narrative [facility] Department of Hematologic Oncology and Blood Disorders PATIENT NAME: Derrell Avitia [facility] NO: [id number] Date of service: 03/17/2024 Reason for visit: Follow up of CML on clinical trial Diagnosis: 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 (imatinib, dasatinib, nilotinib, bosutinib and ponatinib) Current Treatment - On a clinical trial - [facility] 1920 20-998 Title: A phase 1b study of the pharmacokinetics, safety and efficacy of orally administered [id number] in subjects with refractory chronic myeloid leukemia (CML). Day 1 was 06/19/2020. Cycle 5 scheduled to start on 10/13/2020 was delayed to elevated lipase levels. Today is day 28 of cycle 48. He is being dosed at 30 mg [...] reduction) 01/22/2023 - 0.7883% (2.1 log reduction) 04/16/2023 - 0.3411% (2.47 log reduction) 07/09/2023 - 0.3748% (2.43 log reduction) 10/01/2023 - 0.2311% (2.64 log reduction) 03/17/2024 - 0.1818% Impression: This is a 53 year-old male with chronic phase CML who is here for follow up on clinical trial Recommendations: 1) Chronic Myeloid Leukemia (CML) in chronic phase with failure or intolerance to multiple TKI's (dasatinib, imatinib, nilotinib, bosutinib and ponatinib) - He started the CML clinical trial - [facility] 1920 20-998 Title: A phase 1b study of the pharmacokinetics, safety and efficacy of orally administered [id number] in subjects with refractory chronic myeloid 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 He has completed 27 cycles. He achieved early 3 month molecular response and eight serial bone marrow biopsies done as part of the clinical trial protocol on 09/15/2020, 12/22/2020, 06/15/2021, 11/29/2021, 05/16/2022, 10/12/2022, 04/18/2023, and 10/03/2023 and he remains in CCyR. He has, however, not met the criteria for MMR. Follow up as per clinical trial protocol. 2) Hypertension - On amlodipine at 10 mg once daily. Continue follow up with his PCP. 3) Severe obstructive sleep apnea - Confirmed on polysomnography test done on 12/21/2017. He has been recommended CPAP but does not use it. 5) History of psoriasiform dermatitis / pruritic papular erythematous rash on [...] coinciding with initiation of the study drug. Sodium level low but normal today at 136 mmol/L. 8) History of elevated lipase and history of pancreatitis while on ponatinib - Close monitoring. Today's lipase level 12/23/2023 remains normal. 9) Hypercholesterolemia and hypertriglyceridemia - He has underlying risk factors for CAD and CVA. His cholesterol and triglycerides remains high. Continued monitoring. High-sensitivity troponin monitored per study and elevated today but has been chronically elevated - level repeated and improved. Dr. Howell aware. 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 CBC with differential from the same [place] [address], [place] [address], monocytosis (5700), 6700 lymphocytes, 500 basophils and thrombocytopenia with platelets at 721528. Metaphase cytogenetics showed presence of t(9;22) in [...] trilineage hematopoiesis, decreased iron stores. Cytogenetics showed 46,XY,t(9;22)(q34;q11.2)[3]/46,XY[17] , consistent with failure to achieve CCyR. BCR-ABL [...] and consented for the clinical trial - [facility] 1920 20-998 Title: A phase 1b study of the pharmacokinetics, safety and efficacy of orally administered [id number] in subjects with refractory chronic myeloid leukemia [...] delayed due to elevated lipase. He was exposed to poison radha in September and broke out in rash around his left eye, face, trunk and chest for which he completed a short course of dexamethasone. - eight serial bone marrow biopsies done as part of the clinical trial protocol on 09/15/2020, 12/22/2020, 06/15/2021, 11/29/2021, 05/16/2022, 10/12/2022, 04/18/2023, and 10/03/2023 and he remains in CCyR. Review of systems including interval history: Interval History - s/p R shoulder rotator cuff surgery on 12/09/2023 from an injury sustained last year. Will start PT next week. Constitutional: No fever, anorexia or malaise. + Chronic stable fatigue (rates it as 3-4/10 with 10 being the worst) Eyes: No change in vision, blurriness, diplopia, redness, or irritation. ENT: No mouth sores or bleeding gums; no hoarseness of voice. No epistaxis or other nasal problems. No changes in hearing, vertigo, or tinnitus. Respiratory: No shortness of breath, coughing, wheezing, dyspnea at rest, exertional dyspnea, or hemoptysis. Cardiovascular: No chest pain, palpitations, orthopnea, PND, syncopal events or presyncopal events. Gastrointestinal: No nausea, no vomiting, heartburn or acid reflux, constipation or abdominal cramping. Bowel habit is unchanged; and no melena or hematochezia. Genitourinary: No urgency, frequency, dysuria, or hematuria. Musculoskeletal: + stable chronic joint pains/arthritis. Unrestricted ambulation. Skin: No rashes or suspicious lesions. Neurological: No syncope, near-syncope, or seizures; no headaches or alteration in sensorium or motor strength. Psychiatric: Memory, short term & bosom presser intact; no disturbance in sleep pattern and [...] years Current medication: Reviewed from [facility] and integrated in assessment and plan. Current Outpatient Medications Medication Sig Dispense Refill empagliflozin (JARDIANCE) 25 mg tablet Take 1 tablet by mouth daily with breakfast. 90 tablet 0 pravastatin (PRAVACHOL) 80 mg tablet Take 1 tablet by mouth once daily. blood sugar diagnostic (FREESTYLE PRECISION ADDISON STRIPS) test strip Use with blood glucose test one time daily 100 Strip 3 insulin lispro (HUMALOG KWIKPEN) 100 unit/mL Inject 15 units with breakfast and lunch and 20 units with dinner plus sliding scale (Max daily dose of 91 units daily) 90 mL 3 amLODIPine (NORVASC) 10 mg tablet Take 10 mg by mouth. flash glucose sensor (FREESTYLE MARY ANN 2 SENSOR) kit USE DIRECTED EVERY 14 DAYS 6 Each 3 lisinopril (ZESTRIL) 20 mg tablet Take 20 mg by mouth once daily. insulin glargine (LANTUS SOLOSTAR U-100 INSULIN) 100 unit/mL (3 mL) Inject 35 Units subcutaneously twice daily. 75 mL 3 flash glucose scanning reader ([employer] MARY ANN 2 READER) Check glucose 4 times daily 1 Each 0 fluocinonide (LIDEX) 0.05 % ointment Apply to affected areas of rash twice daily x 2 weeks, then once daily x 2 weeks. NOT for face, armpits, or groin 60 g 1 Insulin Syringe-Needle U-100 1 mL 25 x 1 syrg Use 1 syringe once daily to administer peg-interferon dose. 100 Syringe 5 ibuprofen (MOTRIN) 800 mg tablet No current facility-administered medications for this visit. Social History: He is . 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 He does not smoke cigarettes and has [...] chemicals, radiation therapy, chemotherapy. Physical Examination: Vitals: 03/17/24 1132 BP: 156/83 Pulse: 73 Resp: 20 Temp: 36.2 C (97.2 F) TempSrc: Temporal SpO2: 96% Weight: 118.1 kg (260 lb 5.8 oz) ECOG PERFORMANCE STATUS: 1- Restricted in physically strenuous activity. Carries out light duty. Gen: Awake, alert, oriented x 3, NAD, accompanied by his Skin: No rashes or lesions. HEENT: sclera anicteric, EOMI, PERRL. MMM Lungs: CTAB, no cough. Heart: RRR, no murmurs. WWP Abdomen: protuberant, soft, +BS- non-tender - spleen not palpable but difficult due to body habitus Extremities: No edema Labs: Reviewed and in Epic I spent a total of 40 minutes on the date of the service which included preparing to see the patient, [id number] patient care, obtaining and/or reviewing separately obtained history, performing a medically appropriate examination, counseling and educating the patient/family/caregiver, ordering medications, tests, or procedures, communicating with other HCPs (not separately reported), independently interpreting results (not separately reported), and communicating results to the patient/family/caregiver. William Howell MD PhD MPH Associate Staff Hematologic Oncology and Blood Disorders Pager [phone] Date of service: 03/17/2024 documented in this encounter [facility] 04-27-2024 History of Present illness Narrative Associated Problem(s): Bilateral hand pain No hx autoimmune, worse during cold months Has had xrays in the past showed OA Recommend he contact his oncologist, see if ok for him to use OTC capcasin cream Pt is having cramping in his hands, possible trigger fingers, usually this time of year every year Pt has not taken BP pill Derrell Avitia is a 53 y.o. male presents with chief complaint of No chief complaint on file. HPI: Here for a fu appt: Diabetes: back on his insulin, numbers doing well less than 150, stop glipizide, is taking Jardiance needs more Bilat hands locking up, worse with cold months, happens every year, occ tingling, (residual from shoulder surgery) drops things at times, no acute neck pain cannot take meloxicam d/t chemo. No erythema or acute swelling SUBJECTIVE: MEDICATIONS: Current Outpatient Medications Medication Instructions amLODIPine (NORVASC) 10 mg, Oral, Daily Continuous Blood Gluc Resaw Feeder (FreeStyle [place] 2 [place]) device USE DIRECTED TO CHECK GLUCOSE FOUR TIMES DAILY empagliflozin (JARDIANCE) 25 mg, Oral, Daily with breakfast FreeStyle Precision Addison Test test strip 1 each, Other, Daily glipiZIDE XL (GLUCOTROL XL) 5 mg, Oral, Daily insulin glargine (Lantus SoloStar) 100 UNIT/ML pen 35 units twice a day insulin lispro (HumaLOG) 100 UNIT/ML injection 10 units for at breakfast and lunch, and 22 units at dinner time, plus sliding scale. Max 78 units per daily insulin pen needle (B-D UF III MINI PEN NEEDLES) 31G x 5 mm misc 1 each, Subcutaneous, 2 times daily lisinopril 20 mg, Oral, Daily pravastatin (PRAVACHOL) 80 mg, Oral, Daily ALLERGIES: Allergies Allergen Reactions Morphine GI intolerance Other GI intolerance REVIEW OF SYMPTOMS: Review of Systems Constitutional: Negative for activity change, appetite change and unexpected weight change. HENT: Negative for ear pain, nosebleeds, sneezing, trouble swallowing and voice change. Eyes: Negative for pain, discharge and visual disturbance. Respiratory: Negative for apnea, chest tightness and wheezing. Cardiovascular: Negative for leg swelling. Gastrointestinal: Negative for abdominal distention, blood in stool, constipation and diarrhea. Genitourinary: Negative for decreased urine volume, difficulty urinating, dysuria and hematuria. Musculoskeletal: Positive for arthralgias and myalgias. Skin: Negative for color change. Neurological: Negative for dizziness, tremors and seizures. Psychiatric/Behavioral: Negative for agitation, decreased concentration, hallucinations, self-injury and suicidal ideas. The patient is not nervous/anxious. Hematological: Negative for adenopathy. Does not bruise/bleed easily. Endocrine: Positive for polydipsia and polyphagia. Negative for cold intolerance, heat intolerance and polyuria. Allergic/Immunologic: Negative for environmental allergies and food allergies. PAST MEDICAL HISTORY Past Medical History: Diagnosis Date Anemia Arthritis 08/07/2023 At moderate risk for fall Chronic myeloid leukemia (CMS/HCC) Degenerative lumbar disc 08/07/2023 Diabetic neuropathy (CMS/HCC) Gastritis GERD (gastroesophageal reflux disease) Hyperlipidemia (CMS/HCC) Hyponatremia Migraine headache (CMS/HCC) Obesity (BMI 30-39.9) 05/06/2023 Pancreatitis Primary hypertension (CMS/HCC) 05/06/2023 Oncology increase dose on amlodipine since last visit with tx Bp much better No changes in med dose at this time Rotator cuff tear, right 08/07/2023 Spondylolisthesis Past Surgical History: Procedure Laterality Date BACK SURGERY [address] ANGIOGRAM HEART CORONARY 06/29/2019 CT ANGIOGRAM TAVR 06/29/2019 CT GUIDED PERCUTANEOUS BIOPSY BONE 12/07/2014 CT GUIDED PERCUTANEOUS BIOPSY BONE KNEE ARTHROPLASTY Right KNEE SURGERY Right 1998 RT KNEE SCOPE PER DR KILPATRICK SHOULDER ARTHROSCOPY Right 12/09/2023 RT SHOULDER SCOPE- DR KILPATRICK SPINE SURGERY TONSILLECTOMY family history includes Alzheimer's disease in an other family member; Diabetes in his father, mother, and another family member; Heart disease in his mother; Hypertension in his father and mother; Stroke in an other family member; cva in an other family member. OBJECTIVE: Visit Vitals BP 140/90 (BP Location: Left arm, Patient Position: Sitting, BP Cuff Size: Adult long) Pulse 66 Temp 98.1 F (Temporal) Resp 20 Ht 5' 10.5 Wt 261 lb 3.2 oz SpO2 97% BMI 36.95 kg/m Smoking Status Never BSA 2.42 m Physical Exam Vitals and nursing note reviewed. Constitutional: Appearance: Normal appearance. HENT: Head: Normocephalic. Right Ear: External ear normal. Left Ear: External ear normal. Nose: Nose normal. Mouth/Throat: Mouth: Mucous membranes are moist. Pharynx: Oropharynx is clear. Eyes: Extraocular Movements: Extraocular movements intact. Conjunctiva/sclera: Conjunctivae normal. Cardiovascular: Rate and Rhythm: Normal rate and regular rhythm. Pulses: Normal pulses. Heart sounds: Normal heart sounds. Pulmonary: Effort: Pulmonary effort is normal. Breath sounds: Normal breath sounds. Abdominal: General: Bowel sounds are normal. Palpations: Abdomen is soft. Musculoskeletal: General: No swelling, tenderness or deformity. Cervical back: Neck supple. Right lower leg: No edema. Left lower leg: No edema. Comments: Hand grasps equal bilat, no gross deformity Skin: General: Skin is warm and dry. Capillary Refill: Capillary refill takes 2 to 3 seconds. Neurological: General: No focal deficit present. Mental Status: He is alert. Psychiatric: Mood and Affect: Mood normal. Behavior: Behavior normal. Thought Content: Thought content normal. Judgment: Judgment normal. ASSESSMENT AND PLAN: No follow-ups on file. Problem List Items Addressed This Visit Essential (primary) hypertension (CMS/HCC) - Primary Please check blood pressure daily and record DASH diet Limit caffeine Take medication as directed Contact office if chest pain, pressure, dizziness, shortness of breath, swelling legs Recommend slow position changes Relevant Medications lisinopril 20 MG tablet Type 2 diabetes mellitus with hyperglycemia, with long-term current use of insulin (CMS/HCC) See endo notes regarding DM Check blood sugars daily, notify if <70 or >200. Take medications (pills or insulin) as directed. Monitor for s/s of hypoglycemia (sweaty, dizziness, nausea, vomiting, or shakiness). Watch for increase in thirst, urination, or appetite. Inspect feet frequently monitoring for open wounds , and also recommend yearly eye exam. Pt should attempt to remain as physically active as chronic conditions allow, as well as trying to follow a diet low in carbohydrates, and simple sugars. Is on statin and bert therapy D/w pt and his , about where he is going to go for his diabetes care, is going to stay with this office Chronic myeloid leukemia ([facility]/HCC) Continue with oncology Hyperlipidemia ([facility]) Relevant Medications pravastatin (Pravachol) 80 MG tablet Morbid (severe) obesity due to excess calories ([facility]) Discussed with patient their BMI (actual, verses recommended). We have also discussed lifestyle modifications: attempts to perform physical activity as chronic conditions allow, also to monitor dietary intake: increasing protein/fruits/veggies and lowering carb intake (unless contraindicated). Limit sodas, juices, and sugary drinks. Also discussed oral medications that can be utilized for weight loss, as well as surgical options for weight loss. Immunodeficiency due to conditions classified elsewhere ([facility]) Bilateral hand pain No hx autoimmune, worse during cold months Has had xrays in the past showed OA Recommend he contact his oncologist, see if ok for him to use OTC capcasin cream Other Visit Diagnoses Primary hypertension ([facility]) Relevant Medications lisinopril 20 MG tablet Associated Problem(s): Chronic myeloid leukemia ([facility]/HCC) Continue with oncology Associated Problem(s): Type 2 diabetes mellitus with hyperglycemia, with long-term current use of insulin ([facility]) See endo notes regarding DM Check blood sugars daily, notify if <70 or >200. Take medications (pills or insulin) as directed. Monitor for s/s of hypoglycemia (sweaty, dizziness, nausea, vomiting, or shakiness). Watch for increase in thirst, urination, or appetite. Inspect feet frequently monitoring for open wounds , and also recommend yearly eye exam. Pt should attempt to remain as physically active as chronic conditions allow, as well as trying to follow a diet low in carbohydrates, and simple sugars. Is on statin and bert therapy D/w pt and his , about where he is going to go for his diabetes care, is going to stay with this office Associated Problem(s): Morbid (severe) obesity due to excess calories (CMS/HCC) Discussed with patient their BMI (actual, verses recommended). We have also discussed lifestyle modifications: attempts to perform physical activity as chronic conditions allow, also to monitor dietary intake: increasing protein/fruits/veggies and lowering carb intake (unless contraindicated). Limit sodas, juices, and sugary drinks. Also discussed oral medications that can be utilized for weight loss, as well as surgical options for weight loss. Associated Problem(s): Essential (primary) hypertension (CMS/HCC) Please check blood pressure daily and record DASH diet Limit caffeine Take medication as directed Contact office if chest pain, pressure, dizziness, shortness of breath, swelling legs Recommend slow position changes documented in this encounter [facility] 04-27-2024 Instructions Buffy Chung NP - 04/27/2024 3:20 PM EST Jardiance 25mg tablet: take 1/2 pill daily, we will give you Patient Assistance Form for him to complete Call you oncologist: ask him if you can use an over the counter cream called Capcasin .cream documented in this encounter [facility] 04-16-2024 Instructions Kylee Dalal APRN.CNP - 04/16/2024 3:59 PM EST Plan Continue: Jardiance 25 mg daily 1/2 tablet daily Lantus 35 units twice daily Humalog [...] sugars less than 70 Follow up in 3 months documented in this encounter [facility] 04-16-2024 Procedure note Procedure(s): EXTERNAL HEADWAITRESS, CGM SYS Images from the original note were not included. [facility] 04-16-2024 Procedure note Procedure(s): EXTERNAL HEADWAITRESS, CGM SYS Images from the original note were not included. documented in this encounter [facility] 04-16-2024 History of Present illness Narrative Endocrinology Follow Up PCP: Buffy Chung [facility] History of Present Illness Derrell Avitia JR is a 53 year old male presents today for follow up of DM Type 2. At [facility] no changes made to regimen. Recent HbA1c is 10.5%. He was out of his basal insulin for 2 months in January and February as he was not working (was on leave from shoulder surgery) and could not afford this. He also had not been wearing his Mary Ann for the same reason. He was given Jardiance samples by his PCP as he could not afford Farxiga. He has a high deductible plan so has difficulty obtaining brand name medications. He did resume Mary Ann in late February/early March and glucose was very well controlled, although was having lows. He stopped glipizide due to the lows, as instructed by his PCP. Lows resolved with stopping glipizide. 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 Has a history of CML. He was in a trial for a chemotherapeutic agent (ponatinib) which caused pancreatitis (this is a known adverse effect of this medication). He was hospitalized 4 times for pancreatitis around 2019 and was diagnosed with diabetes afterwards. Has been off of this agent since 2019. Reports he is sometimes missing mealtime insulin. Is fearful of taking while at work at times as he had 3 lows last year. Date of Diagnosis: 2019 HbA1c: Hemoglobin A1C (%) Date Value 03/17/2024 10.5 12/24/2023 8.7 10/01/2023 6.8 07/09/2023 6.3 01/22/2023 8.5 05/22/2020 9.9 09/07/2019 [...] diarrhea Current DM Related Medications: Current Medications 04/15/2024 DIABETES THERAPIES Medication Dosage Pharm Subclass empagliflozin (JARDIANCE) 25 mg tablet Take 1 tablet by mouth daily with breakfast. Antihyperglycemic - Sodium Glucose Cotransporter-2 (SGLT2) Inhibitors glipiZIDE (GLUCOTROL) 5 mg tablet Take 1 tablet (5 mg) by mouth daily before breakfast. Antihyperglycemic - Sulfonylurea Derivatives insulin glargine (LANTUS SOLOSTAR U-100 INSULIN) 100 [...] Take 20 mg by mouth once daily. BERT Inhibitors pravastatin (PRAVACHOL) 80 mg tablet Take 1 tablet by mouth once daily. Antihyperlipidemic - HMG CoA Reductase Inhibitors (statins) OTHER Medication Dosage Pharm Subclass blood sugar diagnostic (FREESTYLE PRECISION ADDISON STRIPS) test strip Use with blood glucose test one time daily Medical Supplies and DME - Blood Glucose Tests flash glucose scanning reader (VANCLSTYLE MARY ANN 2 READER) Check glucose 4 [...] dose. Medical Supplies and DME - Insulin Tynan-Syringes and Admin Supplies Physical Activity: Sedentary Diet: Does not follow a diabetic diet, but making improvements recently SMBG Frequency of Monitorin times daily Summary of Personal CGM Findings: Dates worn: 03/03/2024-03/16/2024 CGM Type: Mary Ann 1- CGM recording is adequate for interpretation. Worn 89% of time. 2- Average glucose is 160 mg/dl. 3. 65% time in range 70-180mg/dL 4. Coefficient of variation: 36% 5. Total frequency of hypoglycemia: 4% with BG<70 * Hypoglycemia patterns: postprandial and overnight *Nocturnal hypoglycemia noted 6- Hyperglycemic episodes 31% with BG>180 * Hyperglycemia Patterns: not significant Past History, Medications, Allergies PAST MEDICAL HISTORY Diagnosis Date CML (chronic myelocytic leukemia) (HCC) Hypertension PAST SURGICAL HISTORY Procedure Laterality Date ANES OPEN/SURG ARTHROSCOPIC PROC KNEE JOINT NOS right knee BACK SURGERY HX L4 and L5 infusion CHOLECYSTECTOMY TONSILLECTOMY HX ALLERGIES Allergen Reactions Opioids - Morphine * Vomiting, GI Upset No family history on file. Social History Tobacco Use Smoking status: Never Smokeless tobacco: Never Vaping Use Vaping status: Never Used Substance Use Topics Alcohol use: Yes Comment: [...] and dizziness or syncope. Physical examination BP 121/77 (BP Site: Left Arm, BP Position: Sitting, BP Cuff Size: Large Adult) Pulse 79 Ht 177.8 cm (5' 10 ) Wt 116.9 kg (257 lb 11.5 oz) SpO2 98% BMI 36.98 kg/m General appearance: Well appearing, alert, in no acute distress, well-hydrated, well nourished. Skin: Skin color, texture, turgor normal, no suspicious rashes or lesions HEART: normal rate LUNGS: unlabored, normal respiratory rate EXTREMITIES No deformities, No skin discoloration and No edema NEURO: Speech normal, mental status intact, no tremor noted. Previous Laboratory Results LABS Glucose (mg/dL) Date Value 04/06/2024 224 03/17/2024 143 12/24/2023 221 06/11/2021 173 03/13/2021 159 12/22/2020 231 Potassium (mmol/L) Date Value 04/06/2024 4.7 06/11/2021 4.4 Sodium (mmol/L) Date Value 04/06/2024 136 03/17/2024 136 12/24/2023 136 06/11/2021 137 03/13/2021 135 12/22/2020 135 Chloride (mmol/L) Date Value 04/06/2024 101 03/17/2024 101 12/24/2023 100 06/11/2021 100 03/13/2021 100 12/22/2020 103 CO2 (mmol/L) Date Value 04/06/2024 20 03/17/2024 25 12/24/2023 25 06/11/2021 26 03/13/2021 23 12/22/2020 24 Creatinine (mg/dL) Date Value 04/06/2024 0.73 03/17/2024 0.62 12/24/2023 0.57 06/11/2021 0.71 03/13/2021 0.60 12/22/2020 0.60 BUN (mg/dL) Date Value 04/06/2024 19 03/17/2024 16 12/24/2023 17 06/11/2021 16 03/13/2021 14 12/22/2020 19 Anion Gap (mmol/L) Date Value 04/06/2024 15 03/17/2024 10 12/24/2023 11 06/11/2021 11 03/13/2021 12 12/22/2020 8 Calcium (mg/dL) Date Value 06/11/2021 9.9 03/13/2021 9.5 12/22/2020 9.2 Calcium, Total (mg/dL) Date Value 04/06/2024 10.0 03/17/2024 9.8 12/24/2023 9.6 eGFR- (no units) Date Value 06/11/2021 >60 03/13/2021 >60 12/22/2020 >60 eGFR-All Other Races (.) Date Value 06/11/2021 >60 03/13/2021 >60 12/22/2020 >60 Estimated Glomerular Filtration Rate (mL/min/1.73m ) Date Value 04/06/2024 107 03/17/2024 113 12/24/2023 116 ALT (U/L) Date Value 04/06/2024 98 03/17/2024 71 12/24/2023 57 06/11/2021 38 03/13/2021 38 12/22/2020 26 TSH Date Value Ref Range Status 04/07/2020 2.410 0.270 - 4.200 uU/mL Final 03/24/2020 2.230 0.270 - 4.200 uU/mL Final 03/06/2020 1.950 0.270 - 4.200 uU/mL Final Free T4 Date Value Ref Range Status 01/31/2020 1.9 (H) 0.9 - 1.7 ng/dL Final Impression/Recommendations IMPRESSION Derrell Avitia JR is a 53 year old here for evaluation of 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 RECOMMENDATIONS: 1. Glycemic control: Target HbA1C is less than 7.0% per ADA guidelines. Patient is not at target, but current CGMS data shows significantly better glycemic control than HbA1c suggests. Poor glycemic control was in the setting of being out of basal insulin for two months.Most recent TIR is 65% with TBR 4%, GMI 7.1%. Having overnight and postprandial hypoglycemia, which has resolved per patient report with elimination of glipizide. Discussed cutting Jardiance in half for the time being (efficacy is similar in 10 mg and 25 mg dosages, but 1/2 25 mg will allow him to be on medication longer). He plans to obtain more samples through his PCP. Discussed them looking into PAP for either Jardiance or Farxiga to see if they would qualify. For now, plan to resume CGM and he will message me in about 4 weeks to review report once back on his medication regimen/glucose monitor. We had a long discussion at previous [...] he has been off of this since 2020. He is amenable to trying in the future, but we would need to confer with his clinical team managing his CML. Plan Continue: Jardiance 25 mg daily 1/2 tablet daily Lantus 35 units twice daily Humalog [...] sugars less than 70 Follow up in 3 months Patient to continue to [...] Cholesterol, Total Date Value Ref Range Status 03/17/2024 274 (H) <200 mg/dL Final Comment: <200 mg/dL, Desirable 200-239 mg/dL, Borderline high >239 mg/dL, High Reference: 1. National Cholesterol Education Program ATP III Guideline At-A-Glance Quick Desk Reference: National Heart, Lung, and Blood English. National Institutes of Health. 2001: [facility] Publication No. . HDL Cholesterol Date Value Ref Range Status 05/13/2022 38 (L) >39 mg/dL Final Comment: 40-59 mg/dL, Acceptable >59 mg/dL, High: Negative risk factor for coronary heart disease <40 mg/dL, Low: Positive risk factor for coronary heart disease Reference: 1. National Cholesterol Education Program ATP III Guideline At-A-Glance Quick Desk Reference: National Heart, Lung, and Blood English. National Institutes of Health. 2000: [facility] Publication No. . LDL Cholesterol Date Value Ref Range Status 03/22/2022 151 (H) <100 mg/dL Final Comment: <100 mg/dL, Optimal 100-129 mg/dL, Near optimal/above optimal 130-159 mg/dL, Borderline high 160-189 mg/dL, High >189 mg/dL, Very high Secondary prevention optimal LDL Cholesterol levels are recommended to be < 70 mg/dL Triglyceride Date Value Ref Range Status 03/17/2024 261 (H) <150 mg/dL Final Comment: <150 mg/dL, Normal 150-199 mg/dL, Borderline high 200-499 mg/dL, High >499 mg/dL, Very high Reference: 1. National Cholesterol Education Program ATP III Guideline At-A-Glance Quick Desk Reference: National Heart, Lung, and Blood English. National Institutes of Health. 2001: [facility] Publication No. . Latest Ref Rng 07/09/2023 LDL Cholesterol, Direct <100 mg/dL 182 (H) Latest Ref Rng 03/17/2024 Triglyceride <150 mg/dL 261 (H) Fasting Time hrs 13 Cholesterol, Total <200 mg/dL 274 (H) -- This patient is not on target on statin therapy. -- Managed by PCP. Pravastatin recently increased from 40 mg to 80 mg. 4. Nephropathy screening: Annual measurement of urine albumin excretion is recommended in patients with diabetes. Albumin/Creat Ratio (mg/g) Date Value 04/17/2023 44 (H) Protein, Urine (no units) Date Value 03/17/2024 Negative 06/11/2021 2+ (A) Creatinine, Ur Random (UCRR) (mg/dL) Date Value 04/17/2023 73.8 -- This patient has microalbuminuria and is on BERT-I or ARB and SGLT2i. -- Repeat UACR. 5. Ophthalmology: Annual dilated eye exams are [...] time of the patient encounter Kylee Dalal APRN.NETWORK INTELLIGENCE ANALYST (Signed electronically to expedite mailing) documented in this encounter [facility] 03-29-2024 History of Present illness Narrative Images from the original note were not included. HISTORY OF PRESENT ILLNESS: EST PT Derrell Avitia is an 53 y.o. @ male. EST PT; MOST RECENT VISIT WITH [facility]- S/P RT SHOULDER SCOPE 12/09/23 (15WKS 6DAYS) -RECHECK RT HAND - CONTINUES PT FM; NOTES GOOD IMPROVEMENT EMG RT UE 02/26/24 [facility] PT FM SHOULDER DOING WELL- MINIMAL DISCOMFORT- INCREASE ROM/STRENGTH- PT STATES HAND SYMPTOMS ARE THE SAME- N/T RT LF/RF - NO PAIN MEDS HX OF HAND SYMPTOMS; SYMPTOMS STARTED ~2WKS P/O IN [place] (~12/24/23) ALLERGIES: Allergies Allergen Reactions Morphine GI intolerance Other GI intolerance HOME MEDICATIONS: Current Outpatient Medications Medication Instructions amLODIPine (NORVASC) 10 mg, Oral, Daily Continuous Blood Gluc Resaw Feeder (FreeStyle Mary Ann 2 [place]) device USE DIRECTED TO CHECK GLUCOSE FOUR TIMES DAILY empagliflozin (JARDIANCE) 25 mg, Oral, Daily with breakfast FreeStyle Precision Addison Test test strip 1 each, Other, Daily glipiZIDE XL (GLUCOTROL XL) 5 mg, Oral, Daily insulin glargine (Lantus SoloStar) 100 UNIT/ML pen 35 units twice a day insulin lispro (HumaLOG) 100 UNIT/ML injection 10 units for at breakfast and lunch, and 22 units at dinner time, plus sliding scale. Max 78 units per daily insulin pen needle (B-D UF III MINI PEN NEEDLES) 31G x 5 mm misc 1 each, Subcutaneous, 2 times daily lisinopril 20 mg, Oral, Daily pravastatin (PRAVACHOL) 80 mg, Oral, Daily PHYSICAL EXAM: Shoulder Musculoskeletal Exam Inspection Right Right shoulder inspection is normal. Ecchymosis: none Peripheral edema: none Atrophy: none Masses: none Prior incision: arthroscopic portals Incision: well-healed Palpation Right Right shoulder palpation is normal. Crepitus: no crepitus Increased warmth: none Tenderness: none Range of Motion Right Right shoulder range of motion is normal. Active ROM: normal and no pain. Passive ROM: normal and no pain. Forward elevation: 165 degrees. Right shoulder active abduction: 165 degrees. Strength Right External rotation: 5/5. Internal rotation: 5/5. Abduction: 5/5. Biceps: 5/5. Triceps: 5/5. Neurovascular Right Radial pulse: normal and 2+ Capillary refill: <3 sec Axillary nerve sensory distribution: normal Neurovascular additional comments: N/t noted to (R) RF and (R) LF at ulnar nerve distribution Scapula Right Right shoulder scapula is normal. Position: normal Winging: none Special Tests Right Rotator Cuff Signs Neer's test: negative Espinosa test: negative Biceps/chika Signs Speed's test: negative AC Joint Signs Active horizontal adduction pain: negative Vitals: There is no height or weight on file to calculate BMI. Tobacco Use: Low Risk (03/29/2024) Patient History Smoking Tobacco Use: Never Smokeless Tobacco Use: Never Passive Exposure: Not on file Alcohol Use: Not on file IMAGING: Procedures No orders of the defined types were placed in this encounter. ASSESSMENT: ICD-10-CM 1. Acute pain of right shoulder M25.511 2. History of arthroscopy of right shoulder Z98.890 3. Numbness R20.0 PLAN: We have answered all the patients questions and explained the patients condition, decision making and plan including the risks and benefits associated with said plan in layman''s terms in a language the patient could understand easily. If patient''s symptoms significantly worsen and they cannot get a hold of us or their family physician, we have recommended that the patient proceed to the nearest emergency department (room). Dr. Kilpatrick obtained history and examined the patient, I am acting as scribe for Dr. Kilpatrick/davis, PLAN: Patient is pleased with his right shoulder progress as he admits his right shoulder is better now than it was prior to sx. He has good strength / ROM of his right shoulder with examination. We have discussed (R) UE EMG results with patient at bedside : mild carpal and cubital tunnel. We will RTW on Thursday 04/05. We have discussed avoiding motions including, but not limited to : no fast / aggressive motions. We have discussed his HEP and restrictions and will see him back in 3 months to reassess his right shoulder strength / ROM. Rosa Kilpatrick D.O. documented in this encounter [facility] 03-19-2024 Surgery Surgical operation note BRIEF OPERATIVE / PROCEDURE NOTE LOG ID: [id number] SURGERY/PROCEDURE DATE: 03/19/2024 INCISION/PROCEDURE START TIME: 8:48 AM INCISION CLOSE/PROCEDURE END TIME: SURGEON(S)/PROCEDURALIST(S) AND GUEST SPECIALIST(S): Surgeons and Role: * Rafael Maravilla MD - Primary * Chad Aguirre DO - Fellow No Additional Staff SURGERY/PROCEDURE(S): bone marrow biopsy ANESTHESIA: Procedural Sedation FINDINGS: successful right posterior iliac bone marrow biopsy ESTIMATED BLOOD LOSS: 0 ml SPECIMENS: 14ml aspirate and 1.9cm core COMPLICATIONS: None PRE-OP/PRE-PROCEDURE DIAGNOSIS: CML POST-OP/POST-PROCEDURE DIAGNOSIS: Same as Preop SIGNATURE: Chad Aguirre DO PATIENT NAME: Derrell Avitia JR DATE: March 19, 2024 TIME: 8:56 AM [facility] 03-19-2024 Surgical operation note BRIEF OPERATIVE / PROCEDURE NOTE LOG ID: [id number] SURGERY/PROCEDURE DATE: 03/19/2024 INCISION/PROCEDURE START TIME: 8:48 AM INCISION CLOSE/PROCEDURE END TIME: SURGEON(S)/PROCEDURALIST(S) AND GUEST SPECIALIST(S): Surgeons and Role: * Rafael Maravilla MD - Primary * Chad Aguirre DO - Fellow No Additional Staff SURGERY/PROCEDURE(S): bone marrow biopsy ANESTHESIA: Procedural Sedation FINDINGS: successful right posterior iliac bone marrow biopsy ESTIMATED BLOOD LOSS: 0 ml SPECIMENS: 14ml aspirate and 1.9cm core COMPLICATIONS: None PRE-OP/PRE-PROCEDURE DIAGNOSIS: CML POST-OP/POST-PROCEDURE DIAGNOSIS: Same as Preop SIGNATURE: Chad Aguirre DO PATIENT NAME: Derrell Avitia JR DATE: March 19, 2024 TIME: 8:56 AM documented in this encounter [facility] 03-19-2024 History of Present illness Narrative Radiology Service Progress Note PATIENT NAME: Derrell Avitia JR DATE OF SERVICE: March 19, 2024 TIME: 8:45 AM PATIENT IDENTITY VERIFICATION COMPLETED USING TWO (2) IDENTIFIERS: Name and Date of confirmed by patient verbally and Name and Date of confirmed by identification band. FALL SCREENING: Has the patient had 2 falls in the last year or 1 fall with injury or currently using an Ambulatory Assistive Device (Walker, Cane, Wheelchair, Crutches, etc.)? No PATIENT GENDER DATA: Male PATIENT RELEVANT IMPLANT DATA REVIEWED: Yes PATIENT PRESENTS WITH AN IMPLANTABLE OR ATTACHED RECYCLING CREW SUPERVISOR: No RADIOLOGY DEPARTMENT: Ct guided bone marrow biopsy PERIPHERAL IV DATA: Not applicable SIGNED BY: RT Karina(R) March 19, 2024 8:45 AM documented in this encounter [facility] 03-19-2024 Instructions Formatting of th is note might be different from the original. AMBULATORY PATIENT EDUCATION NOTE TOPIC: HEALTH PROMOTION: Complication prevention READINESS TO LEARN COGNITIVE ABILITY: Alert and oriented MOTIVATION TO LEARN: Interested FAMILY SUPPORT: High - Very involved in pt care INSTRUCTION PROVIDED TO: Patient PATIENT LEARNS BEST BY: Individual Instruction FACTORS AFFECTING LEARNING: None PHYSICAL LIMITATIONS AFFECTING LEARNING: None LEARNING RESPONSE DIAGNOSIS: bone marrow biopsy METHOD OF INSTRUCTION: Individual instruction PATIENT / FAMILY RESPONSE: Verbalizes understanding of: POST-PROCEDURE INSTRUCTIONS-Correct actions to take to reduce post procedure complications FOLLOW-UP PLAN: Complete - No need for follow-up SUPPLEMENTAL MATERIAL: None REFERRAL (RECOMMENDATION): None Electronically Signed By: Sadaf Barry RN In Department: [facility] Time spent on patient education: 05 minutes. [facility] 03-19-2024 Miscellaneous Notes AMBULATORY PATIENT EDUCATION NOTE TOPIC: HEALTH PROMOTION: Complication prevention READINESS TO LEARN COGNITIVE ABILITY: Alert and oriented MOTIVATION TO LEARN: Interested FAMILY SUPPORT: High - Very involved in pt care INSTRUCTION PROVIDED TO: Patient PATIENT LEARNS BEST BY: Individual Instruction FACTORS AFFECTING LEARNING: None PHYSICAL LIMITATIONS AFFECTING LEARNING: None LEARNING RESPONSE DIAGNOSIS: bone marrow biopsy METHOD OF INSTRUCTION: Individual instruction PATIENT / FAMILY RESPONSE: Verbalizes understanding of: POST-PROCEDURE INSTRUCTIONS-Correct actions to take to reduce post procedure complications FOLLOW-UP PLAN: Complete - No need for follow-up SUPPLEMENTAL MATERIAL: None REFERRAL (RECOMMENDATION): None Electronically Signed By: Sadaf Barry RN In Department: [place] [id number] Time spent on patient education: 05 minutes. documented in this encounter [facility] 03-19-2024 History and physical note PROCEDURAL SEDATION HISTORY AND PHYSICAL EXAM SERVICE DATE: 03/19/2024 SERVICE TIME: 7:51 AM Subjective HPI: This is a 53 year old male who presents with CML, need for bone marrow biopsy PAST ANESTHESIA HISTORY: No history of adverse event PAST MEDICAL HISTORY Diagnosis Date CML (chronic myelocytic leukemia) (HCC) Hypertension PAST SURGICAL HISTORY Procedure Laterality Date ANES OPEN/SURG ARTHROSCOPIC PROC KNEE JOINT NOS right knee BACK SURGERY HX L4 and L5 infusion CHOLECYSTECTOMY TONSILLECTOMY HX Prior to Admission medications as of 03/19/24 0729 Medication Sig Last Dose Taking empagliflozin (JARDIANCE) 25 mg tablet Take 1 tablet by mouth daily with breakfast. 03/18/2024 Yes glipiZIDE (GLUCOTROL) 5 mg tablet Take 1 tablet (5 mg) by mouth daily before breakfast. 03/18/2024 Yes pravastatin (PRAVACHOL) 80 mg tablet Take 1 tablet by mouth once daily. 03/18/2024 Yes blood sugar diagnostic (VANCLSTSkytree PRECISION ADDISON STRIPS) test strip Use with blood glucose test one time daily 03/18/2024 Yes insulin lispro (HUMALOG KWIKPEN) 100 unit/mL Inject 15 units with breakfast and lunch and 20 units with dinner plus sliding scale (Max daily dose of 91 units daily) 03/18/2024 Yes lisinopril (ZESTRIL) 20 mg tablet Take 20 mg by mouth once daily. 03/18/2024 Yes insulin glargine (LANTUS SOLOSTAR U-100 INSULIN) 100 unit/mL (3 mL) Inject 35 Units subcutaneously twice daily. 03/19/2024 Yes ibuprofen (MOTRIN) 800 mg tablet Yes amLODIPine (NORVASC) 10 mg tablet Take 10 mg by mouth. flash glucose sensor (FREESTYLE MARY ANN 2 SENSOR) kit USE DIRECTED EVERY 14 DAYS flash glucose scanning reader (FREESTYLE MARY ANN 2 READER) Check glucose 4 times daily fluocinonide (LIDEX) 0.05 % ointment Apply to affected areas of rash twice daily x 2 weeks, then once daily x 2 weeks. NOT for face, armpits, or groin Insulin Syringe-Needle U-100 1 mL 25 x 1 syrg Use 1 syringe once daily to administer peg-interferon dose. ALLERGIES Allergen Reactions Opioids - Morphine * Vomiting, GI Upset Objective PHYSICAL EXAM: The remainder of the physical exam is noncontributory. AIRWAY: Airway Visualization of Uvula: Yes Mouth opening greater than 2 fingerbreadths: Yes Neck Full Range of Motion: Yes LUNGS: Lungs clear to auscultation CARDIAC: ,Regular rate Assessment/Plan ASA Class: ASA Class: Patient with mild systemic disease Active Problems: * No active hospital problems. * Resolved Problems: * No resolved hospital problems. * Medication and Non-Pharmacologic VTE Prophylaxis/Anticoagulants VTE Prophylaxis: VTE prophylaxis appropriate Provisional Diagnosis/Treatment Plan: CML; bone marrow biopsy Sedation Goal: Moderate SIGNATURE: Chad Aguirre DO PATIENT NAME: Derrell Avitia JR DATE: March 19, 2024 TIME: 7:51 AM [facility] Work Phone: 03-19-2024 History and physical note PROCEDURAL SEDATION HISTORY AND PHYSICAL EXAM SERVICE DATE: 03/19/2024 SERVICE TIME: 7:51 AM Subjective HPI: This is a 53 year old male who presents with CML, need for bone marrow biopsy PAST ANESTHESIA HISTORY: No history of adverse event PAST MEDICAL HISTORY Diagnosis Date CML (chronic myelocytic leukemia) (HCC) Hypertension PAST SURGICAL HISTORY Procedure Laterality Date ANES OPEN/SURG ARTHROSCOPIC PROC KNEE JOINT NOS right knee BACK SURGERY HX L4 and L5 infusion CHOLECYSTECTOMY TONSILLECTOMY HX Prior to Admission medications as of 03/19/24 0729 Medication Sig Last Dose Taking empagliflozin (JARDIANCE) 25 mg tablet Take 1 tablet by mouth daily with breakfast. 03/18/2024 Yes glipiZIDE (GLUCOTROL) 5 mg tablet Take 1 tablet (5 mg) by mouth daily before breakfast. 03/18/2024 Yes pravastatin (PRAVACHOL) 80 mg tablet Take 1 tablet by mouth once daily. 03/18/2024 Yes blood sugar diagnostic (FREESTYLE PRECISION ADDISON STRIPS) test strip Use with blood glucose test one time daily 03/18/2024 Yes insulin lispro (HUMALOG KWIKPEN) 100 unit/mL Inject 15 units with breakfast and lunch and 20 units with dinner plus sliding scale (Max daily dose of 91 units daily) 03/18/2024 Yes lisinopril (ZESTRIL) 20 mg tablet Take 20 mg by mouth once daily. 03/18/2024 Yes insulin glargine (LANTUS SOLOSTAR U-100 INSULIN) 100 unit/mL (3 mL) Inject 35 Units subcutaneously twice daily. 03/19/2024 Yes ibuprofen (MOTRIN) 800 mg tablet Yes amLODIPine (NORVASC) 10 mg tablet Take 10 mg by mouth. flash glucose sensor (FREESTYLE MARY ANN 2 SENSOR) kit USE DIRECTED EVERY 14 DAYS flash glucose scanning reader (VANCLSTYLE MARY ANN 2 READER) Check glucose 4 times daily fluocinonide (LIDEX) 0.05 % ointment Apply to affected areas of rash twice daily x 2 weeks, then once daily x 2 weeks. NOT for face, armpits, or groin Insulin Syringe-Needle U-100 1 mL 25 x 1 syrg Use 1 syringe once daily to administer peg-interferon dose. ALLERGIES Allergen Reactions Opioids - Morphine * Vomiting, GI Upset Objective PHYSICAL EXAM: The remainder of the physical exam is noncontributory. AIRWAY: Airway Visualization of Uvula: Yes Mouth opening greater than 2 fingerbreadths: Yes Neck Full Range of Motion: Yes LUNGS: Lungs clear to auscultation CARDIAC: ,Regular rate Assessment/Plan ASA Class: ASA Class: Patient with mild systemic disease Active Problems: * No active hospital problems. * Resolved Problems: * No resolved hospital problems. * Medication and Non-Pharmacologic VTE Prophylaxis/Anticoagulants VTE Prophylaxis: VTE prophylaxis appropriate Provisional Diagnosis/Treatment Plan: CML; bone marrow biopsy Sedation Goal: Moderate SIGNATURE: Chad Aguirre DO PATIENT NAME: Derrell Avitia JR DATE: March 19, 2024 TIME: 7:51 AM documented in this encounter [facility] 03-17-2024 Nurse Note Additional intake questions: Has the patient had fever, nausea, vomiting, diarrhea, constipation, fatigue for > 1 week? Yes, fatigue and Provider Notified Does the patient have a decreased appetite? No Does patient want to see a Concrete Rubber? No (yes to any of above refer patient to schedulers for dietitian appointment) ) Does patient have any new or increased numbness or tingling of extremities? No Is patient interested in fertility information? No Does patient need any prescription refills? No Does patient have an advanced directive in place? No, Patient referred to [facility] Electronically Signed By: Marcelino Finney LPN [facility] 03-17-2024 Nurse Note Additional intake questions: Has the patient had fever, nausea, vomiting, diarrhea, constipation, fatigue for > 1 week? Yes, fatigue and Provider Notified Does the patient have a decreased appetite? No Does patient want to see a Concrete Rubber? No (yes to any of above refer [...] Marcelino Finney LPN documented in this encounter [facility] 03-17-2024 History of Present illness Narrative Summary: ACTG 1920 / 20-998 cycle 48 day 28 ACTG 1920 20-998 A phase 1b study of the pharmacokinetics, safety and efficacy of orally administered [id number] in subjects with refractory chronic myeloid leukemia [...] participate on the study by the sponsor 03/17/2024 Cycle 48 day 28 Subject #: 016-002 Patient met with research team, pleasant and engaged in conversation. Patient denies any side effects to report. Pt had rotator cuff surgery on 12/09/2023 and currently has right hand ring and pinky finger numbness. 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 Patient reports that from late December up until 2 weeks ago he was w/o his diabetic medication d/t cost. He is currently taking his diabetic medication. In addition he is still without his pravastatin. Pt denies sob, chest pain, n/v/d. EKGs reviewed by Dr. Howell and have no clinical significance. Discussed plan of care to continue on clinical trial. Patient verbalized understanding and is in agreement. Dr. Howell reviewed all labs and AE's. ECHO LVEF 58% BMBx: scheduled for 03/19/2024 EK ms, 410 ms, 400 ms PE: Dr. Howell ECO Ankle-brachial index: Left brachial 154/84 Left ankle 181/85 VS: 03/17/24 Weight 118.1 kg (260 lb 5.8 oz) BSA 0 BMI 0 Temp 36.2 C (97.2 F) Pulse 73 Resp 20 BP 156/83 SpO2 96 % PAST MEDICAL HISTORY Diagnosis Date Status [...] L4 and L5 infusion Prior to 03/2012 [place] ANESTH,KNEE JOINT; NOS right knee Prior to [...] 03/2016 Bosutinib 03/2016 - 05/02/2017 [facility] 2915 15-875 trial of Ponatinib 05/21/2017 - [...] on 03/2019 noted 9.5% IS. 10/30/2022 BCR/ABL1 P210 %IS 1.1278 01/22/2023 BCR/ABL1 P210 %IS .78 04/16/2023 BCR/ABL1 P210 %IS .34 07/09/2023 BCR/ABL1 P210 %IS .37 10/01/2023 BCR/ABL1 P210 %IS .23 12/24/2023 BCR/ABL1 P210 %IS .52 Medications: NKA Medication Dose Start Date Stop Date Comments Ibuprofen 800 mg once daily as needed per patient 10/2015 For general body aches Insulin Lantus 35 units daily Per patient 10/2022 For diabetes Kenalog cream Apply 2x/day to affected areas. 05/29/2020 For rash Lovaza (2) 1gm capsules orally 2x/day 06/22/2020 on hold restarted 09/03/2021 Hypertriglyceridemia Advil 400 mg orally every 6 hours as needed 07/10/2020 For headache Lidex ointment 0.05% Apply twice daily for 2 weeks, then once daily for 2 weeks For rash. Do not apply to face, armpits or groin Colace 100 mg orally once a day as needed 06/07/2021 Constipation Norvasc 10 mg orally once a day 05/22/2023 Blood pressure Lispro (insulin) 15 units breakfast and lunch, 20 units at dinner 06/2023 Diabetes Sliding scale insulin with Humalog If Blood Glucose (mg/dL) is <150 Give 0 units 151-200 Give 2 unit 201-250 Give 4 units 251-300 Give 6 units 301-350 Give 8 units 351-400 Give 10 units >400 Give 12 units and notify provider 07/15/2022 DM Jardiance 25 mg orally once a day with breakfast 12/2023 Diabetes Glipizide 5 mg orally once day before breakfast 11/2023 Diabetes Pravastatin 80 mg orally once a day 08/29/2023 Cholesterol Lisinopril 20 mg orally once a day 09/09/2022 Bllod pressure Discontinued medications Hydrea 500 mg 2 capsules by mouth [...] days then stop. 05/22/2020 05/26/2020 For leukocytosis Hydrea (2) 500 mg capsules orally 2x/day 06/12/2020 06/16/2020 For leukocytosis Hydrea (2) 500 mg capsules orally 3x/day 06/16/2020 06/17/2020 For leukocytosis Decadron 4 mg orally 10/06/2020 For poison radha Norvasc 5 mg orally once a day 05/13/2022 05/22/2023 Blood pressure Hartland 5/325 mg 1 tab PO x 1 05/16/2022 05/16/2022 Hand pain Zofran 4 mg 4 mg IV x 1 05/16/2022 05/16/2022 Nausea LR 1L 1L IV over one hr x1 05/16/2022 05/16/2022 Dizziness Hydrocodone-Acetaminophen Take 1 tab orally every 6 hours 08/06/2023 08/15/2023 Broken teeth Amoxicillin 500 mg orally three times a day 08/06/2023 08/15/2023 Lip infection Cephalexin 500 mg PO every 6 hrs x 7 days 10/10/2023 10/15/2023 Left hand cellulitis Doxycycline 100 mg PO BID x 7 days 10/10/2023 10/15/2023 Left hand cellulitis Farxiga 10 mg orally once a day 04/17/202311/2023 Diabetes Toxicities: CTCAE V. 5 SCREENING all predate [...] treat: no. Outcome: present intermittently Fasting labs 03/17/2024: CTCAE v.5 Hypertension Grade 1 Unrelated Start [...] Hyponatremia Grade 1 Unrelated Start date 01/22/2023 Resolved:12/24/2023. Drugs used to treat:no. Outcome: resolved. Broken teeth Grade 1 Start date 08/06/2023 Resolved:ongoing. Drugs used to treat:yes. Outcome: still present. already noted above on 06/19/2020. Alkaline phosphatase increased (347) Grade 2. Possibly Related (03/17/2024) Start date: 12/24/2023. Resolve date: ongoing. Drugs to treat: none. Outcome: still present. Baseline abnormal value of 136 on 06/19/2020. Alanine aminotransferase increased Grade 1. UNRELATED. Start date: 12/24/2023. Resolve date: ongoing. Drugs to treat: none. Outcome: still present Resolved AE's: Hypertriglyceridemia Grade 3 Unrelated(prior [...] treat: no. Outcome:resolved. Constipation Grade 1 Unrelated Startdate:06/22/20.Resolved:06/23/2020. Drugs used to treat: no. Outcome: resolved. Hypoalbuminemia Grade 1 Unrelated Startdate:06/22/20.Resolved:07/17/2020r ugs used to treat: no. Outcome: resolved. Platelet count decreased Grade 1 Possibly related Startdate:07/13/20.Resolved:07/26/2020. Drugs used to treat: no. Outcome: resolved. Headache Grade 1 Possibly related Startdate:07/10/2020.Resolved:08/14/2020. Drugs used to treat:yes. Outcome: resolved. Lipase [...] 05/2022. Drugs to treat: norco. Outcome: resolved Lip infection Grade 1 Start date 08/06/2023 Resolved:08/15/2023. Drugs used to treat:yes. Outcome: resolved. Hand cellulitis Grade 2. UNRELATED. Start date: 10/10/2023. Resolve date: 10/15/2023. Drugs to treat: cephalexin, doxycycline. Outcome: resolved Skin and subcutaneous tissue disorders-Other, specify Right heal callus Grade 1 Unrelated Start date 09/17/2023 Resolved:12/2023. Drugs used to treat:yes. Outcome: resolved. Patients last dose of study drug was 03/16/2024 Next dose due on 03/18/2024 Re-educated patient on how to complete the [...] bottles, 2 empty and 1 bottle with 53 tablets. The count is accurate. Patient was given drug: yes. 3 bottles of drug. 60 pills per bottle of 10 mg pills. To be dosed with 30 mg of HQP on 03/18/2024 then every other day. Lot# [id number] Patient aware next appointment is 06/16/2024 and can be viewed on [employer]. Patient presented today to participate on the trial ACTG 1920 / IRB 20-998. Patient understands that he must call nurse [...] nurse's contact information and after hours fellows environmental technical officer. Patient understands that this participation is voluntary and that he may withdraw at any time during the trial. Emma Tuttle RN,OCN documented in this encounter [facility] 03-17-2024 History of Present illness Narrative Summary: ACTG 1920 [id number] CRC Documentation IRB#: [id number], [facility], Study Title: A phase 1b study of the pharmacokinetics, safety and efficacy of orally administered [id number] in subjects with refractory chronic myeloid leukemia (CML). Informed Consent signed on 06/19/2020, prior to any study related procedures being performed that are not SOC. Pt Study #: 016-002 Treatment Arm: CML CP and AP Cycle 42 Day October 01, 2023 Cycle 45 Day December 24, 2023 Patient presents for: Cycle 48 Day March 17, 2024 The following research tasks have been completed per protocol: Quality of life questionnaire: Not Required VS completed: Yes-Completed by Marcelino Finney LPN EKGs (Triplicate): Yes MISC1 kit delivered to [facility] lab on 03/16/2024 Given to Emma Tuttle RN or review. Raheem Santos, Research Coordinator documented in this encounter [facility] 03-12-2024 Nurse Note Pre-procedure phone call: ? Contacted Derrell Avitia . Your appointment is confirmed for Bone Marrow Biopsy scheduled on Friday03/19/24, at [facility]. I will be providing you with important instructions for your procedure, if not followed your procedure may need to be cancelled or rescheduled. Arrival: Arrive to desk -1 ([facility]) by 6:30 Am and check in for your procedure. Please bring your Photo ID and Insurance Card, a general consent may need to be signed. Labs: No additional Lab work needed. Diet: Do not eat any solid food after 12 Midnight the night before your procedure. You may drink clear liquids until 6:00 AM the day of your procedure, which means black coffee or water only. ? Medications: IF ok with your Prescribing Provider, Radiology recommends the following MEDICATION RESTRICTIONS Jardiance, Glipizide (Glucotrol), Insulin Glargine (Lantus), and Insulin Lispro (Humalog): Hold Jardiance, and Glipizide oral hypoglycemics the day of this procedure. Hold short acting insulin the day of procedure. (Lispro or Humalog) Long acting insulin, take dose the AM of the procedure (Lantus/Glargine) Medication patches/pumps: It is recommended that Glucose Monitor patches are removed prior to procedure. (as we discussed, wait until after procedure to put on your new glucose monitor patch) Insulin pumps MUST be removed before entering the procedure room. If you wear a Neulasta Onpro patch, it MUST be removed prior to procedure. ? Clay Miller/Transportation: You will need a responsible adult to accompany you to and from the procedure. Your front end driver is required to stay with you until you are taken into the procedure room. Recovery expectations: You will be in the recovery room post procedure for a minimum of 1 Hour. Written instructions provided to patient via [employer] For Questions/ Concerns: If you have any questions or concerns regarding your procedure please don't hesitate to call Biopsy Coordinator at [phone] [facility] 03-12-2024 Nurse Note Pre-procedure phone call: ? Contacted Derrell Avitia . Your appointment is confirmed for Bone Marrow Biopsy scheduled on Friday03/19/24, at [facility]. I will be providing you with important instructions for your procedure, if not followed your procedure may need to be cancelled or rescheduled. Arrival: Arrive to desk -1 ([facility]) by 6:30 Am and check in for your procedure. Please bring your Photo ID and Insurance Card, a general consent may need to be signed. Labs: No additional Lab work needed. Diet: Do not eat any solid food after 12 Midnight the night before your procedure. You may drink clear liquids until 6:00 AM the day of your procedure, which means black coffee or water only. ? Medications: IF ok with your Prescribing Provider, Radiology recommends the following MEDICATION RESTRICTIONS Jardiance, Glipizide (Glucotrol), Insulin Glargine (Lantus), and Insulin Lispro (Humalog): Hold Jardiance, and Glipizide oral hypoglycemics the day of this procedure. Hold short acting insulin the day of procedure. (Lispro or Humalog) Long acting insulin, take dose the AM of the procedure (Lantus/Glargine) Medication patches/pumps: It is recommended that Glucose Monitor patches are removed prior to procedure. (as we discussed, wait until after procedure to put on your new glucose monitor patch) Insulin pumps MUST be removed before entering the procedure room. If you wear a Neulasta Onpro patch, it MUST be removed prior to procedure. ? Clay Miller/Transportation: You will need a responsible adult to accompany you to and from the procedure. Your front end driver is required to stay with you until you are taken into the procedure room. Recovery expectations: You will be in the recovery room post procedure for a minimum of 1 Hour. Written instructions provided to patient via [employer] For Questions/ Concerns: If you have any questions or concerns regarding your procedure please don't hesitate to call Biopsy Coordinator at [phone] documented in this encounter [facility] 03-03-2024 History of Present illness Narrative Associated Problem(s): Type 2 diabetes mellitus with hyperglycemia, with long-term current use of insulin (CMS/HCC) Non compliant with basal insulin, secondary to lack of money to buy it. Should have money tomorrow For now d/t financial issues: we are going to use jardiance 25m/2 pill daily for 6 days, then increase to 1 pill daily (#6 samples given lot [id number], exp 08/04 If blood sugar is less than 150 stop the glipizide Fu in 4 weeks for recheck Associated Problem(s): Primary hypertension (CMS/HCC) Stable, no med dose changes Pt has not been on the lantus for 1 1/2m but has has enough humalog Pt needs a refill on his pravastatin Sugars have been running 250 if it becomes higher he does experience blurry vision but no complaints of dizziness Pt does not start work again til apr 12 Images from the original note were not included. Derrell Avitia is a 53 y.o. male presents with chief complaint of No chief complaint on file. HPI: Has been out of basal insulin for over 2months d/t being off work and not being able to afford insulin. He should be able to pick this up tomorrow. Has also not been wearing his Free Style Mary Ann, d/t recent shoulder surgery and he could not reach a sensor to check sugar Diabetes He presents for his follow-up diabetic visit. He has type 2 diabetes mellitus. His disease course has been worsening. There are no hypoglycemic associated symptoms. Pertinent negatives for hypoglycemia include no dizziness, nervousness/anxiousness, seizures or tremors. Associated symptoms include fatigue, foot paresthesias, polydipsia and polyuria. Pertinent negatives for diabetes include no blurred vision and no polyphagia. There are no hypoglycemic complications. Symptoms are worsening. Diabetic complications include a CVA and peripheral neuropathy. Pertinent negatives for diabetic complications include no retinopathy. Risk factors for coronary artery disease include diabetes mellitus, dyslipidemia, hypertension, male sex, obesity and sedentary lifestyle. Current diabetic treatment includes insulin injections and oral agent (dual therapy). He is compliant with treatment some of the time. He does not see a package sealer.Eye exam is current. Hypertension This is a chronic problem. The current episode started more than 1 year ago. The problem is unchanged. The problem is controlled. Pertinent negatives include no blurred vision, palpitations, peripheral edema or shortness of breath. There are no associated agents to hypertension. Risk factors for coronary artery disease include diabetes mellitus, dyslipidemia, male gender, obesity and sedentary lifestyle. Past treatments include BERT inhibitors and calcium channel blockers. The current treatment provides significant improvement. There are no compliance problems. Hypertensive end-organ damage includes CVA. There is no history of kidney disease or retinopathy. SUBJECTIVE: MEDICATIONS: Current Outpatient Medications Medication Instructions amLODIPine (NORVASC) 10 mg, Oral, Daily Continuous Blood Gluc Resaw Feeder (FreeStyle Mary Ann 2 [place]) device USE DIRECTED TO CHECK GLUCOSE FOUR TIMES DAILY empagliflozin (JARDIANCE) 25 mg, Oral, Daily with breakfast FreeStyle Precision Addison Test test strip 1 each, Other, Daily glipiZIDE XL (GLUCOTROL XL) 5 mg, Oral, Daily insulin glargine (Lantus SoloStar) 100 UNIT/ML pen 35 units twice a day insulin lispro (HumaLOG) 100 UNIT/ML injection 10 units for at breakfast and lunch, and 22 units at dinner time, plus sliding scale. Max 78 units per daily insulin pen needle (B-D UF III MINI PEN NEEDLES) 31G x 5 mm misc 1 each, Subcutaneous, 2 times daily lisinopril 20 mg, Oral, Daily pravastatin (PRAVACHOL) 80 mg, Oral, Daily ALLERGIES: Allergies Allergen Reactions Morphine GI intolerance Other GI intolerance REVIEW OF SYMPTOMS: Review of Systems Constitutional: Positive for fatigue. Negative for activity change, appetite change and unexpected weight change. HENT: Negative for ear pain, nosebleeds, sneezing, trouble swallowing and voice change. Eyes: Negative for blurred vision, pain, discharge and visual disturbance. Respiratory: Negative for apnea, chest tightness, shortness of breath and wheezing. Cardiovascular: Negative for palpitations and leg swelling. Gastrointestinal: Negative for abdominal distention, blood in stool, constipation and diarrhea. Genitourinary: Negative for decreased urine volume, difficulty urinating, dysuria and hematuria. Musculoskeletal: Positive for arthralgias. Skin: Negative for color change. Neurological: Positive for numbness. Negative for dizziness, tremors and seizures. Psychiatric/Behavioral: Negative for agitation, decreased concentration, hallucinations, self-injury and suicidal ideas. The patient is not nervous/anxious. Hematological: Negative for adenopathy. Does not bruise/bleed easily. Endocrine: Positive for polydipsia and polyuria. Negative for cold intolerance, heat intolerance and polyphagia. Allergic/Immunologic: Negative for environmental allergies and food allergies. PAST MEDICAL HISTORY Past Medical History: Diagnosis Date Anemia Arthritis 08/07/2023 At moderate risk for fall Chronic myeloid leukemia (CMS/HCC) Degenerative lumbar disc 08/07/2023 Diabetic neuropathy (CMS/HCC) Gastritis GERD (gastroesophageal reflux disease) Hyperlipidemia (CMS/HCC) Hyponatremia Migraine headache (CMS/HCC) Obesity (BMI 30-39.9) 05/06/2023 Pancreatitis Primary hypertension (CMS/HCC) 05/06/2023 Oncology increase dose on amlodipine since last visit with tx Bp much better No changes in med dose at this time Rotator cuff tear, right 08/07/2023 Spondylolisthesis Past Surgical History: Procedure Laterality Date BACK SURGERY [address] ANGIOGRAM HEART CORONARY 06/29/2019 CT ANGIOGRAM TAVR 06/29/2019 CT GUIDED PERCUTANEOUS BIOPSY BONE 12/07/2014 CT GUIDED PERCUTANEOUS BIOPSY BONE KNEE ARTHROPLASTY Right KNEE SURGERY Right 1998 RT KNEE SCOPE PER DR KILPATRICK SHOULDER ARTHROSCOPY Right 12/09/2023 RT SHOULDER SCOPE- DR KILPATRICK SPINE SURGERY TONSILLECTOMY family history includes Alzheimer's disease in an other family member; Diabetes in his father, mother, and another family member; Heart disease in his mother; Hypertension in his father and mother; Stroke in an other family member; cva in an other family member. OBJECTIVE: Visit Vitals BP 126/80 (BP Location: Left arm, Patient Position: Sitting, BP Cuff Size: Adult long) Pulse 95 Temp 98.1 F (Temporal) Resp 19 Ht 5' 10.5 Wt 259 lb SpO2 96% BMI 36.64 kg/m Smoking Status Never BSA 2.41 m Physical Exam Vitals and nursing note reviewed. Constitutional: Appearance: Normal appearance. HENT: Head: Normocephalic. Right Ear: External ear normal. Left Ear: External ear normal. Nose: Nose normal. Mouth/Throat: Mouth: Mucous membranes are moist. Pharynx: Oropharynx is clear. Eyes: Extraocular Movements: Extraocular movements intact. Conjunctiva/sclera: Conjunctivae normal. Neck: Vascular: No carotid bruit. Cardiovascular: Rate and Rhythm: Normal rate and regular rhythm. Pulses: Normal pulses. Heart sounds: Normal heart sounds. Pulmonary: Effort: Pulmonary effort is normal. Breath sounds: Normal breath sounds. No wheezing, rhonchi or rales. Chest: Chest wall: No tenderness. Abdominal: General: Bowel sounds are normal. Palpations: Abdomen is soft. Tenderness: There is no abdominal tenderness. There is no guarding. Musculoskeletal: Cervical back: Neck supple. Right lower leg: No edema. Left lower leg: No edema. Lymphadenopathy: Cervical: No cervical adenopathy. Skin: General: Skin is warm and dry. Capillary Refill: Capillary refill takes 2 to 3 seconds. Neurological: General: No focal deficit present. Mental Status: He is alert. Psychiatric: Mood and Affect: Mood normal. Behavior: Behavior normal. Thought Content: Thought content normal. Judgment: Judgment normal. ASSESSMENT AND PLAN: No follow-ups on file. Problem List Items Addressed This Visit Primary hypertension (CMS/HCC) Stable, no med dose changes Type 2 diabetes mellitus with hyperglycemia, with long-term current use of insulin (CMS/HCC) - Primary Non compliant with basal insulin, secondary to lack of money to buy it. Should have money tomorrow For now d/t financial issues: we are going to use jardiance 25m/2 pill daily for 6 days, then increase to 1 pill daily (#6 samples given lot [id number], exp 08/04 If blood sugar is less than 150 stop the glipizide Fu in 4 weeks for recheck Body mass index (BMI) 37.0-37.9, adult Obstructive sleep apnea (adult) (pediatric) Morbid (severe) obesity due to excess calories ([facility]) documented in this encounter [facility] 03-03-2024 History of Present illness Narrative Images from the original note were not included. HISTORY OF PRESENT ILLNESS: POST OP PT Derrell Avitia is an 53 y.o. @ male. No surgery found s/p surgery onNo surgery found EST PT; MOST RECENT VISIT WITH DR KILPATRICK - S/P RT SHOULDER SCOPE 12/09/23 (12KWKS 1DAY) - CONTINUES PT FM; WILL STARTED STRENGTHENING TOMORROW- CONTINUES OFF WORK EMG RT UE 02/26/24 [facility] PT FM SHOULDER DOING WELL- SOME DISCOMFORT AFTER PT AND INCREASE ROM- NO PAIN MEDS- INCREASE ROM BUT STILL LIMITED -CONTINUES TO HAVE N/T RT LF/RF- CONSTANT N/T SYMPTOMS STARTED ~2WKS P/O IN [place] REVIEW OF SYSTEMS: General: Denies fever, fatigue or weight loss Lungs: Denies SOB Cardio: Denies chest pain GI: Denies indigestion or abdominal pain Neuro: Denies numbness or tingling, denies new onset paralysis Musculoskeletal: ( see note) PHYSICAL EXAM: Left Hand Exam Other Sensation: decreased (ulnar nerve distribution in hand, neg tinels at cubital tunnel and carpal tunnel.) Right Shoulder Exam Tenderness The patient is experiencing no tenderness (compartments soft). Range of Motion Active abduction: 120 Passive abduction: 170 (gentle pendulums easily) Extension: 60 External rotation: 70 (PROM to 90) Forward flexion: 130 (PROM to 170) Muscle Strength Right shoulder normal muscle strength: Fires deltoid and rotator cuff. Other Erythema: absent Scars: absent (portals well healed) Sensation: normal Pulse: present Comments: The operative upper extremity was noted to be neurovascularly unchanged. Sensation to light touch was intact to all dermatomes to operative upper extremity. Radial and ulnar pulses were present and equal bilaterally. Patient was able to motor elbow wrist and fingers in all anatomic planes with 5 out of 5 strength on the operative upper extremity. Compartments were soft to operative upper extremity. There was no evidence of infection or ascending lymphangitis to operative extremity. 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 ASSESSMENT: ICD-10-CM 1. Status post arthroscopy of right shoulder Z98.890 S/p SAD and double row rotator cuff repair PLAN: F/U Dr. Kilpatrick recheck ulnar nerve symptoms. ( Non-localizable on EMG) Pt pleased with progress. Has order for therapy to start strengthening tomorrow. Discussed Supine shoulder exercise. May start 20 reps twice a day then add 2 lbs weight.. Pt thankful. Denies pain. Questions answered in laymen terms at the bedside. The diagnosis, home exercise plan and any ongoing restrictions/ recommendations reviewed. If unable to be reached in office, I recommend evaluation at nearest Emergency Room if any symptoms worsened or new symptoms develop for requiring urgent evaluation. documented in this encounter [facility] 03-01-2024 History of Present illness Narrative Images from the original note were not included. HISTORY OF PRESENT ILLNESS: POST OP PT Derrell Avitia is an 53 y.o. @ male. EST PT; MOST RECENT VISIT WITH [facility]- S/P RT SHOULDER SCOPE 12/09/23 (11WKS 6DAYS)- RECHECK RT HAND- HERE FOR EMG RT UE 02/26/24 [facility] EMG RT UE 02/26/24 [facility] PT RT SHOULDER @ FM CONTINUES TO HAVE N/T RT LF/RF- DENIES SWELLING- DENIES ISSUES WITH GRIPPING- NO PAIN MEDS - PT IS TENTATIVE TO RTW 03/08/24- PT CONTINUES TO HAVE LIMITED ROM- HAS NOT STARTED STRENGTHENING NAZ FOR HAND: SYMPTOMS STARTED ~2WKS P/O IN SLING REVIEW OF SYSTEMS: General: Denies fever, fatigue or weight loss Lungs: Denies SOB Cardio: Denies chest pain GI: Denies indigestion or abdominal pain Neuro: Denies numbness or tingling, denies new onset paralysis Musculoskeletal: ( see note) PHYSICAL EXAM: Right Hand Exam Right hand exam is normal. Tenderness Right hand tenderness location: denies pain. Range of Motion Wrist Extension: normal Flexion: normal Pronation: normal Supination: normal Tests Phalen s Sign: negative Tinel's sign (median nerve): negative Shamar's test: negative Other Erythema: absent Scars: absent Sensation: decreased (sensation present to 2 point discrimination at 5mm, but blunted to ulnar nerve distribution in hand.) Pulse: present Comments: Neg elbow flexion test. Minima soreness medial forearm about 2 inches distal to cubital tunnel? Neg tinnels at cubital tunnel. No weakness with translator and interpreter. Neg Frohmets. Neg tinnels guyon canal. Right Shoulder Exam Tenderness The patient is experiencing no tenderness (compartments soft). Range of Motion Right shoulder active abduction: 160. Right shoulder forward flexion: 160. Muscle Strength Right shoulder normal muscle strength: Fires deltoid and rotator cuff. Abduction: 5/5 Internal rotation: 5/5 External rotation: 5/5 Supraspinatus: 5/5 Subscapularis: 5/5 Biceps: 5/5 Other Erythema: absent Scars: absent (portals well healed) Sensation: normal Pulse: present Comments: The operative upper extremity was noted to be neurovascularly unchanged. Sensation to light touch was intact to all dermatomes to operative upper extremity. Radial and ulnar pulses were present and equal bilaterally. Patient was able to motor elbow wrist and fingers in all anatomic planes with 5 out of 5 strength on the operative upper extremity. Compartments were soft to operative upper extremity. There was no evidence of infection or ascending lymphangitis to operative extremity. 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 Status post arthroscopy of right shoulder Z98.890 Ambulatory referral to Physical Therapy PLAN: We have answered all the patients questions and explained the patients condition, decision making and plan including the risks and benefits associated with said plan in layman''s terms in a language the patient could understand easily. If patient''s symptoms significantly worsen and they cannot get a hold of us or their family physician, we have recommended that the patient proceed to the nearest emergency department (room). Dr. Kilpatrick obtained history and examined the patient, I am acting as scribe for Dr. Kilpatrick/davis, PLAN: We have discussed (R) UE EMG results with patient at bedside : mild carpal and mile cubital tunnel syndrome. After examination of his right shoulder today we are recommending he continue with formal physical therapy to continue to work on his ROM and start strengthening. We have discussed avoiding motions including, but not limited to : no high velocity motions. We are recommending that he continue off of work for another 6 weeks. We have discussed his HEP and restrictions and will see him back in 4 weeks to reassess his right shoulder strength / ROM. Rosa Kilpatrick D.O. documented in this encounter [facility] 02-26-2024 History of Present illness Narrative Images from the original note were not included. Reason for Appointment: EMG Patient: Derrell Avitia : 1970 EMG Computer: [employer] Referring Physician: Lars Belcher PA-C EMG: CARROLL cyber operator: Ariel Dias RT(R) Office Location: [place] Reason for EMG: c/o numbness/tingling in 4th & 5th digits on right hand. Hx of surgery to right shoulder. Hx of DM. Not on blood thinners Comments: Procedure was explained to the patient who expressed understanding. Patient appeared to have tolerated the test well despite some discomfort due to the nature of the test. documented in this encounter [facility] 02-19-2024 Telephone encounter Note DDM called needing the quantity changed on his lantus to either 60 (4boxes) or 75 (5boxes) they can not do 63ML because they can not seperate a box. If you could resend the lantus order with new quantity [facility] 02-19-2024 Miscellaneous Notes DDM called needing the quantity changed on his lantus to either 60 (4boxes) or 75 (5boxes) they can not do 63ML because they can not seperate a box. If you could resend the lantus order with new quantity documented in this encounter [facility] 02-04-2024 History of Present illness Narrative Images from the original note were not included. HISTORY OF PRESENT ILLNESS: POST OP PT Derrell Avitia is an 53 y.o. @ male. No surgery found s/p surgery onNo surgery found EST PT S/P RT SHOULDER SCOPE 12/09/23 (8WKS 1DAY)- RECHECK RT HAND-C/O N/T RT LF/RF- CONSTANT N/T- DENIES SWELLING- RT SHOULDER MINIMAL DISCOMFORT- CONTINUES PT FM; NOTES LIMITED ROM- HAS NOT STARTED STRENGTHENING REVIEW OF SYSTEMS: General: Denies fever, fatigue or weight loss Lungs: Denies SOB Cardio: Denies chest pain GI: Denies indigestion or abdominal pain Neuro: Denies numbness or tingling, denies new onset paralysis Musculoskeletal: ( see note) PHYSICAL EXAM: Right Hand Exam Right hand exam is normal. Tenderness Right hand tenderness location: denies pain. Range of Motion Wrist Extension: normal Flexion: normal Pronation: normal Supination: normal Tests Phalen s Sign: negative Tinel's sign (median nerve): negative Shamar's test: negative Other Erythema: absent Scars: absent Sensation: decreased (sensation present to 2 point discrimination at 5mm, but blunted to ulnar nerve distribution in hand.) Pulse: present Comments: Neg elbow flexion test. Minima soreness medial forearm about 2 inches distal to cubital tunnel? Neg tinnels at cubital tunnel. No weakness with translator and interpreter. Neg Frohmets. Neg tinnels guyon canal. Right Shoulder Exam Tenderness The patient is experiencing no tenderness (compartments soft). Range of Motion Active abduction: 90 Passive abduction: 170 (gentle pendulums easily) Extension: 60 External rotation: 70 Forward flexion: 100 (PROM 170) Muscle Strength Right shoulder normal muscle strength: Fires deltoid and rotator cuff. Other Erythema: absent Scars: absent (portals well healed) Sensation: normal Pulse: present Comments: The operative upper extremity was noted to be neurovascularly unchanged. Sensation to light touch was intact to all dermatomes to operative upper extremity. Radial and ulnar pulses were present and equal bilaterally. Patient was able to motor elbow wrist and fingers in all anatomic planes with 5 out of 5 strength on the operative upper extremity. Compartments were soft to operative upper extremity. There was no evidence of infection or ascending lymphangitis to operative extremity. Procedures No orders of the defined types were placed in this encounter. ASSESSMENT: ICD-10-CM 1. S/P right rotator cuff repair Z98.890 S/p SAD and double row rotator cuff repair Quintinfinger: PLAN: F/U Dr. Kilpatrick s/p EMG RUE to evaluate paresthesias Symptom onset about 2 wks post op, not resolved with removal of sling.. 2 point discrimination to 5mm present, but constant numbeness just distal to wrist ulnar nerve distribution unchanged. Pt agreeable to EMG. Cont. AROM/ PROM.. Very pleased with pt increased rom and minimal to no pain at shoulder. Questions answered in laymen terms at the bedside. The diagnosis, home exercise plan and any ongoing restrictions/ recommendations reviewed. If unable to be reached in office, I recommend evaluation at nearest Emergency Room if any symptoms worsened or new symptoms develop for requiring urgent evaluation. documented in this encounter [facility] 12-26-2023 Telephone encounter Note Spoke to patient. Verified by name and date of . Notified below message. Notified to call pharmacy to verify if medication went through and to call office if not covered by insurance. Patient verbalized understanding. [facility] 12-26-2023 Miscellaneous Notes Spoke to patient. Verified by name and date of . Notified below message. Notified to call pharmacy to verify if medication went through and to call office if not covered by insurance. Patient verbalized understanding. Prior encounter noted Jardiance was not authorized by insurance because he had to try Glipizide first, so that was started instead. Now will try reordering Jardiance, if approved he should start that to help his blood sugars. Thanks Derrell is calling Kylee Dalal APRN.DOMINIC today stating his A1c is elevated and asking if there is something else he should be doing to bring it down? Please advise. Latest Ref Rng 10/01/2023 12/24/2023 Hemoglobin A1C 4.3 - 5.6 % 6.8 (H) 8.7 (H) Estimated Average Glucose mg/dL 148 203 Legend: (H) High Derrell is calling Kylee Dalal APRN.DOMINIC today stating his A1c is elevated and asking if there is something else he should be doing to bring it down? Please advise. Patient has been identified by name and birthdate. Duration of symptoms: N/A Person calling: self Call patient at: on cell [phone] (home) [phone] (cell) Was an appointment scheduled: No Closing statement: Results or non-symptom based questions: Thank you for calling [facility], your call will be returned within the next business day. Jacklyn Singh documented in this encounter [facility] 12-26-2023 Telephone encounter Note Prior encounter noted Jardiance was not authorized by insurance because he had to try Glipizide first, so that was started instead. Now will try reordering Jardiance, if approved he should start that to help his blood sugars. Thanks [facility] 12-26-2023 Telephone encounter Note Derrell is calling Kylee Dalal APRN.CNP today stating his A1c is elevated and asking if there is something else he should be doing to bring it down? Please advise. Latest Ref Rng 10/01/2023 12/24/2023 Hemoglobin A1C 4.3 - 5.6 % 6.8 (H) 8.7 (H) Estimated Average Glucose mg/dL 148 203 Legend: (H) High [facility] 12-26-2023 Telephone encounter Note Derrell is calling Kylee Dalal APRN.CNP today stating his A1c is elevated and asking if there is something else he should be doing to bring it down? Please advise. Patient has been identified by name and birthdate. Duration of symptoms: N/A Person calling: self Call patient at: on cell [phone] (home) [phone] (cell) Was an appointment scheduled: No Closing statement: Results or non-symptom based questions: Thank you for calling [facility], your call will be returned within the next business day. Jacklyn Singh T [facility] 12-26-2023 Telephone encounter Note Called and spoke with pt about repeat troponin results being lower from 12/24/2023. Pt verbalized understanding. Pt plans to follow up with his endocrine provider due to his A1C and triglyceride results being elevated. T [facility] Work Phone: 12-26-2023 Miscellaneous Notes Called and spoke with pt about repeat troponin results being lower from 12/24/2023. Pt verbalized understanding. Pt plans to follow up with his endocrine provider due to his A1C and triglyceride results being elevated. documented in this encounter [facility] 12-24-2023 History of Present illness Narrative Summary: ACTG 1920/-8 Cycle 45 day 28 visit ACTG 0 A phase 1b study of the pharmacokinetics, safety and efficacy of orally administered [id number] in subjects with refractory chronic myeloid leukemia [...] the study by the sponsor 10/01/2023 Cycle 45 day 28 Subject #: [id number] Patient met with research team, pleasant and engaged in conversation. Patient denies any side effects to report. Pt had rotator cuff surgery on 12/09/2023 and currently has right arm in sling. Pt will start physical therapy next week. Pt was seen in local ED for hand cellulitis in October 2023. page and made aware of troponin of 37. OK to dispense drug today but wants a repeat troponin locally tomorrow. Pt willing to get repeat high sensitivity troponin tomorrow in [place]. Pt will go in the morning. Pt denies sob, chest pain, n/v/d. EKGs reviewed by Dr. Hanna and have no clinical significance. Discussed plan of care to continue on clinical trial. Patient verbalized understanding and is in agreement. Dr. Hanna reviewed all labs and AE's. Pt reconsented at this visit. 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 Hydrocodone-Acetaminophen Take 1 tab orally every 6 hours 08/06/2023 Broken teeth Amoxicillin 500 mg orally three times a day 08/06/2023 08/15/2023 Lip infection Cephalexin 500 mg PO every 6 hrs x 7 days 10/10/2023 10/15/2023 Left hand cellulitis Doxycycline 100 mg PO BID x 7 days 10/10/2023 10/15/2023 Left hand cellulitis Glipizide 5 mg PO daily 11/2023 Diabetes Toxicities: CTCAE V. 5 SCREENING all predate [...] treat: no. Outcome: present intermittently Fasting labs 12/24/2023: CTCAE v.5 Hypertension Grade 1 Unrelated Start [...] Drugs used to treat:yes. Outcome: still present. Hand cellulitis Grade 2. UNRELATED. Start date: 10/10/2023. Resolve date: 10/15/2023. Drugs to treat: cephalexin, doxycycline. Outcome: resolved Hypertriglyceridemia (338) Grade 2. UNRELATED. Start date: 12/24/2023. Resolve date: ongoing. Drugs to treat: none. Outcome: still present Alkaline phosphatase increased (347) Grade 2. UNRELATED. Start date: 12/24/2023. Resolve date: ongoing. Drugs to treat: none. Outcome: still present. Baseline abnormal value of 136 on 06/19/2020. Alanine aminotransferase increased Grade 1. UNRELATED. Start date: 12/24/2023. Resolve date: ongoing. Drugs to treat: none. Outcome: still present Resolved AE's: Hypertriglyceridemia Grade 3 Unrelated(prior [...] treat: no. Outcome:resolved. Constipation Grade 1 Unrelated Startdate:06/22/20.Resolved:06/23/2020. Drugs used to treat: no. Outcome: resolved. Hypoalbuminemia Grade 1 Unrelated Startdate:06/22/20.Resolved:07/17/2020r ugs used to treat: no. Outcome: resolved. Platelet count decreased Grade 1 Possibly related Startdate:07/13/20.Resolved:07/26/2020. Drugs used to treat: no. Outcome: resolved. Headache Grade 1 Possibly related Startdate:07/10/2020.Resolved:08/14/2020. Drugs used to treat:yes. Outcome: resolved. Lipase [...] 05/2022. Drugs to treat: norco. Outcome: resolved Lip infection Grade 1 Start date 08/06/2023 Resolved:08/15/2023. Drugs used to treat:yes. Outcome: resolved. Patients last dose of study drug was 12/23/2023 Next dose due on 12/25/2023 Re-educated patient on how to complete the [...] 2 empty and 1 bottle with 54 tablets. The count is accurate. Patient was given drug: yes. 3 bottles of drug. 60 pills per bottle of 10 mg pills. To be dosed with 30 mg of HQP on 12/25/2023 then every other day. Lot# [id number] Patient aware next appointment is 03/17/2024 and can be viewed on [employer]. Patient presented today to participate on the [...] nurse's contact information and after hours fellows environmental technical officer. Patient understands that this participation is voluntary and that he may withdraw at any time during the trial. ОЛЬГА Cabrera, RN documented in this encounter [facility] 12-24-2023 History of Present illness Narrative CRC Documentation IRB#: [id number], [facility]#: ACTG [id number], Study Title: A phase 1b study of the pharmacokinetics, safety and efficacy of orally administered [id number] in subjects with refractory chronic myeloid leukemia (CML). Informed Consent signed on 06/19/2020, prior to any study related procedures being performed that are not SOC. Pt Study #: [id number] Treatment Arm: CML CP and AP Cycle 42 Day October 01, 2023 Patient presents for: Cycle 45 Day December 24, 2023 The following research tasks have been completed per protocol: Quality of life questionnaire: Not Required VS completed: Yes-Completed by Ludy Mead [facility] EKGs (Triplicate): Yes MISC1 kit delivered to [facility] lab on 12/23/2023 Given to RN/Ludy Harkins, RN for review. Raheem Santos, Research Coordinator documented in this encounter [facility] 12-24-2023 History of Present illness Narrative Elements have been copied from prior note on 10/01/2023 - The elements have been reviewed and updated where appropriate, and all reflect my current assessment and decision-making from today, 12/24/2023. The [facility] Department of Hematologic Oncology and Blood Disorders PATIENT NAME: Derrell Hsu [facility] NO: [id number] Date of service: 12/24/2023 Reason for visit: Follow up of CML on clinical trial Diagnosis: 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 (imatinib, dasatinib, nilotinib, bosutinib and ponatinib) Current Treatment - On a clinical trial - [facility] 1920 20-998 Title: A phase 1b study of the pharmacokinetics, safety and efficacy of orally administered [id number] in subjects with refractory chronic myeloid leukemia [...] reduction) 01/22/2023 - 0.7883% (2.1 log reduction) 04/16/2023 - 0.3411% (2.47 log reduction) 07/09/2023 - 0.3748% (2.43 log reduction) 10/01/2023 - 0.2311% (2.64 log reduction) 12/24/2023 - pending Impression: This is a 53 year-old male with chronic phase CML who is here for follow up on clinical trial Recommendations: 1) Chronic Myeloid Leukemia (CML) in chronic phase with failure or intolerance to multiple TKI's (dasatinib, imatinib, nilotinib, bosutinib and ponatinib) - He started the CML clinical trial - ACT 1920 20-998 Title: A phase 1b study of the pharmacokinetics, safety and efficacy of orally administered [id number] in subjects with refractory chronic myeloid 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 He has completed 27 cycles. He achieved early 3 month molecular response and eight serial bone marrow biopsies done as part of the clinical trial protocol on 09/15/2020, 12/22/2020, 06/15/2021, 11/29/2021, 05/16/2022, 10/12/2022, 04/18/2023, and 10/03/2023 and he remains in CCyR. He has, however, not met the criteria for MMR. Follow up as per clinical trial protocol. 2) Hypertension - On amlodipine at 10 mg once daily. Continue follow up with his PCP. 3) Severe obstructive sleep apnea - Confirmed on polysomnography test done on 12/21/2017. He has been recommended CPAP but does not use it. 5) History of psoriasiform dermatitis / pruritic papular erythematous rash on [...] coinciding with initiation of the study drug. Sodium level low but normal today at 136 mmol/L. 8) History of elevated lipase and history of pancreatitis while on ponatinib - Close monitoring. Today's lipase level 12/23/2023 remains normal. 9) Hypercholesterolemia and hypertriglyceridemia - He has underlying risk factors for CAD and CVA. His cholesterol and triglycerides remains high. Continued monitoring. High-sensitivity troponin monitored per study and elevated today but has been chronically elevated - level repeated and improved. Dr. Howell aware. 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 CBC with differential from the same [place] [address], [place] [address], monocytosis (5700), 6700 lymphocytes, 500 basophils and thrombocytopenia with platelets at 297760. Metaphase cytogenetics showed presence of t(9;22) in [...] [facility] clinical [facility]-888 A Randomized, Open-label, Phase 2 Trial of [...] trilineage hematopoiesis, decreased iron stores. Cytogenetics showed 46,XY,t(9;22)(q34;q11.2)[3]/46,XY[17] , consistent with failure to achieve CCyR. BCR-ABL [...] pharmacokinetics, safety and efficacy of orally administered [id number] in subjects with refractory chronic myeloid leukemia [...] delayed due to elevated lipase. He was exposed to poison radha in September and broke out in rash around his left eye, face, trunk and chest for which he completed a short course of dexamethasone. - eight serial bone marrow biopsies done as part of the clinical trial protocol on 09/15/2020, 12/22/2020, 06/15/2021, 11/29/2021, 05/16/2022, 10/12/2022, 04/18/2023, and 10/03/2023 and he remains in CCyR. Review of systems including interval history: Interval History - s/p R shoulder rotator cuff surgery on 12/09/2023 from an injury sustained last year. Will start PT next week. Constitutional: No fever, anorexia or malaise. + Chronic stable fatigue (rates it as 3-4/10 with 10 being the worst) Eyes: No change in vision, blurriness, diplopia, redness, or irritation. ENT: No mouth sores or bleeding gums; no hoarseness of voice. No epistaxis or other nasal problems. No changes in hearing, vertigo, or tinnitus. Respiratory: No shortness of breath, coughing, wheezing, dyspnea at rest, exertional dyspnea, or hemoptysis. Cardiovascular: No chest pain, palpitations, orthopnea, PND, syncopal events or presyncopal events. Gastrointestinal: No nausea, no vomiting, heartburn or acid reflux, constipation or abdominal cramping. Bowel habit is unchanged; and no melena or hematochezia. Genitourinary: No urgency, frequency, dysuria, or hematuria. Musculoskeletal: + stable chronic joint pains/arthritis. Unrestricted ambulation. Skin: No rashes or suspicious lesions. Neurological: No syncope, near-syncope, or seizures; no headaches or alteration in sensorium or motor strength. Psychiatric: Memory, short term & chcf intact; no disturbance in sleep pattern and [...] years Current medication: Reviewed from [facility] and integrated in assessment and plan. Current Outpatient Medications Medication Sig Dispense Refill glipiZIDE (GLUCOTROL) 5 mg tablet Take 1 tablet (5 mg) by mouth daily before breakfast. 30 tablet 2 empagliflozin (JARDIANCE) 25 mg tablet Take 1 tablet by mouth daily with breakfast. 90 tablet 3 pravastatin (PRAVACHOL) 80 mg tablet Take 1 tablet by mouth once daily. blood sugar diagnostic (FREESTYLE PRECISION ADDISON STRIPS) test strip Use with blood glucose test one time daily 100 Strip 3 insulin lispro (HUMALOG KWIKPEN) 100 unit/mL Inject 15 units with breakfast and lunch and 20 units with dinner plus sliding scale (Max daily dose of 91 units daily) 90 mL 3 amLODIPine (NORVASC) 10 mg tablet Take 10 mg by mouth. flash glucose sensor (VANCLSTYLE MARY ANN 2 SENSOR) kit USE DIRECTED EVERY 14 DAYS 6 Each 3 lisinopril (ZESTRIL) 20 mg tablet Take 20 mg by mouth once daily. insulin glargine (LANTUS SOLOSTAR U-100 INSULIN) 100 unit/mL (3 mL) Inject 35 Units subcutaneously twice daily. 75 mL 3 flash glucose scanning reader (VANCLSTYLE MARY ANN 2 READER) Check glucose 4 times daily 1 Each 0 fluocinonide (LIDEX) 0.05 % ointment Apply to affected areas of rash twice daily x 2 weeks, then once daily x 2 weeks. NOT for face, armpits, or groin 60 g 1 Insulin Syringe-Needle U-100 1 mL 25 x 1 syrg Use 1 syringe once daily to administer peg-interferon dose. 100 Syringe 5 ibuprofen (MOTRIN) 800 mg tablet Current Facility-Administered Medications Medication Dose Route Frequency Provider Last Rate Last Admin sodium chloride 0.9 % (flush) 10 mL (BD POSIFLUSH) 10 mL INTRAVENOUS DIRECTED William Moreno MD, PhD perflutren lipid microspheres 1.3 mL in NaCl (PF) 0.9% 10 mL injection (DEFINITY) INTRAVENOUS DIRECTED William Moreno MD, PhD sodium chloride 0.9 % (flush) 10 mL (BD POSIFLUSH) 10 mL INTRAVENOUS DIRECTED William Moreno MD, PhD perflutren lipid microspheres 1.3 mL in NaCl (PF) 0.9% 10 mL injection (DEFINITY) INTRAVENOUS DIRECTED William Moreno MD, PhD sodium chloride 0.9 % (flush) 10 mL (BD POSIFLUSH) 10 mL INTRAVENOUS DIRECTED William Moreno MD, PhD perflutren lipid microspheres 1.3 mL in NaCl (PF) 0.9% 10 mL injection (DEFINITY) INTRAVENOUS DIRECTED William Moreno MD, PhD sodium chloride 0.9 % (flush) 10 mL (BD POSIFLUSH) 10 mL INTRAVENOUS DIRECTED William Moreno MD, PhD Social History: He is . 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 He does not smoke cigarettes and has [...] chemicals, radiation therapy, chemotherapy. Physical Examination: Vitals: 12/24/23 0919 BP: 143/67 Pulse: 60 Resp: 18 Temp: 36.8 C (98.2 F) TempSrc: Oral SpO2: 96% Weight: 119.9 kg (264 lb 5.3 oz) ECOG PERFORMANCE STATUS: 1- Restricted in physically strenuous activity. Carries out light duty. Gen: Awake, alert, oriented x 3, NAD, accompanied by his Skin: No rashes or lesions. HEENT: sclera anicteric, EOMI, PERRL. MMM Lungs: CTAB, no cough. Heart: RRR, no murmurs. WWP Abdomen: protuberant, soft, +BS- non-tender - spleen not palpable but difficult due to body habitus Extremities: No edema Labs: Reviewed and in Epic I spent a total of 29 minutes on the date of the service which included preparing to see the patient, [id number] patient care, obtaining and/or reviewing separately obtained history, performing a medically appropriate examination, counseling and educating the patient/family/caregiver, ordering medications, tests, or procedures, communicating with other HCPs (not separately reported), independently interpreting results (not separately reported), and communicating results to the patient/family/caregiver. Signed: Georgiana Menard APRN.DOMINIC documented in this encounter [facility] 12-24-2023 Nurse Note Additional intake questions: Has the patient had fever, nausea, vomiting, diarrhea, constipation, fatigue for > 1 week? Yes, fatigue and Provider Notified Does the patient have a decreased appetite? No Does patient want to see a Concrete Rubber? No (yes to any of above refer patient to schedulers for dietitian appointment) ) Does patient have any new or increased numbness or tingling of extremities? No Is patient interested in fertility information? No Does patient need any prescription refills? No Does patient have an advanced directive in place? No [facility] 12-24-2023 Nurse Note Additional intake questions: Has the patient had fever, nausea, vomiting, diarrhea, constipation, fatigue for > 1 week? Yes, fatigue and Provider Notified Does the patient have a decreased appetite? No Does patient want to see a Concrete Rubber? No (yes to any of above refer patient to schedulers for dietitian appointment) ) Does patient have any new or increased numbness or tingling of extremities? No Is patient interested in fertility information? No Does patient need any prescription refills? No Does patient have an advanced directive in place? No documented in this encounter [facility] 12-19-2023 Telephone encounter Note Spoke to pt and scheduled biopsy for 03/19/24 per triage. [facility] 12-19-2023 Miscellaneous Notes Spoke to pt and scheduled biopsy for 03/19/24 per triage. Order pending, will call pt once signed. RADIOLOGIST REQUEST / APPROVAL FORM STAFF RADIOLOGIST: Dr. Kang PROCEDURE TO BE DONE UNDER: CT PROCEDURE REQUESTED: CORE Requested PROCEDURE: Approved TIME SLOT NEEDED: 1 Hour NOTES: CML SPECIAL LABS/ PROCESSING: None Pre-procedure labs: CBC: not needed INR: not needed COVID: not needed SIR Bleeding risk category for this procedure: low risk. Reference from [facility] Cable Braider: [email or web address] [email or web address] STAFF SIGNATURE: Jessee Jung MD DATE: December 15, 2023 TIME: 4:13 PM BX. COORDINATOR INFORMATION LAB RESULTS: PT INR (no units) Date Value 06/11/2021 1.0 INR (no units) Date Value 10/01/2023 1.0 APTT (sec) Date Value 10/01/2023 28.1 06/11/2021 25.5 Platelet Count (k/uL) Date Value 10/01/2023 271 06/11/2021 275 Current Outpatient Medications Medication Sig glipiZIDE (GLUCOTROL) 5 mg tablet Take 1 tablet (5 mg) by mouth daily before breakfast. empagliflozin (JARDIANCE) 25 mg tablet Take 1 tablet by mouth daily with breakfast. pravastatin (PRAVACHOL) 80 mg tablet Take 1 tablet by mouth once daily. blood sugar diagnostic (VANCLSTYLE PRECISION ADDISON STRIPS) test strip Use with blood glucose test one time daily insulin lispro (HUMALOG KWIKPEN) 100 unit/mL Inject 15 units with breakfast and lunch and 20 units with dinner plus sliding scale (Max daily dose of 91 units daily) amLODIPine (NORVASC) 10 mg tablet Take 10 mg by mouth. flash glucose sensor (VANCLSTYLE MARY ANN 2 SENSOR) kit USE DIRECTED EVERY 14 DAYS lisinopril (ZESTRIL) 20 mg tablet Take 20 mg by mouth once daily. insulin glargine (LANTUS SOLOSTAR U-100 INSULIN) 100 unit/mL (3 mL) Inject 35 Units subcutaneously twice daily. flash glucose scanning reader (VANCLSTSkytree MARY ANN 2 READER) Check glucose 4 times daily fluocinonide (LIDEX) 0.05 % ointment Apply to affected areas of rash twice daily x 2 weeks, then once daily x 2 weeks. NOT for face, armpits, or groin Insulin Syringe-Needle U-100 1 mL 25 x [...] POSIFLUSH) 10 mL INTRAVENOUS DIRECTED PRN ALLERGIES Allergen Reactions Opioids - Morphine * Vomiting, GI Upset FILMS SENT TO WORKSTATION: GUIDELINES FOR HOLDING ANTI-PLATELET AND ANTI- COAGULATION THERAPY: none on file NURSE SIGNATURE: Emily Anthony LPN DATE: December 15, 2023 TIME: 3:00 PM STAFF-INITIATED RADIOLOGY BIOPSY / ASPIRATION / DRAIN REQUEST FORM Date: December 15, 2023 Time: 2:40 PM PATIENT CONTACT INFORMATION: Best way to reach patient cell phone SCHEDULING: Date: 03/19/2024 (Specific requests must be greater than 10 business days from the date of request) RADIOLOGY SERVICE GROUP (Abdominal / Thoracic / MSK / Neuro): Bone marrow biopsy for study ACT 1919 SPECIFICS OF THE REQUEST (Please be as detailed as possible): Bone marrow biopsy and aspiration SPECIAL REQUESTS: TISSUE SAMPLE, LABWORK: [facility] MEDICAL DIAGNOSIS: CML (i.e. Known primary cancer or suspected diagnosis) IMAGING STUDY AND DATE THAT IS THE BASIS OF THE REQUEST: IR needed for bone marrow biopsy and aspiration (Note: Requests for random organ biopsies, specifically liver and kidney random biopsies do not need imaging.) IMAGING: n/a (If the imaging was obtained outside the [facility] system, PLEASE upload for review prior to approval.) Note to all persons requesting biopsies: All biopsy requests will be scheduled as quickly as possible, based on the clinical urgency, availability of appointment times, the need to hold anti-thrombolytic therapy (aspirin and other blood thinners) and the patient s schedule, including the need for an available front end driver. If a percutaneous biopsy or drainage is not felt to be safe or an alternative method for establishing a diagnosis is possible, this will be discussed directly with the requesting physician. documented in this encounter [facility] 12-17-2023 Telephone encounter Note Order pending, will call pt once signed. [facility] 12-15-2023 Telephone encounter Note RADIOLOGIST REQUEST / APPROVAL FORM STAFF RADIOLOGIST: Dr. Kang PROCEDURE TO BE DONE UNDER: CT PROCEDURE REQUESTED: CORE Requested PROCEDURE: Approved TIME SLOT NEEDED: 1 Hour NOTES: CML SPECIAL LABS/ PROCESSING: None Pre-procedure labs: CBC: not needed INR: not needed COVID: not needed SIR Bleeding risk category for this procedure: low risk. Reference from [facility] Cable Braider: [email or web address] [email or web address] STAFF SIGNATURE: Jessee Jung MD DATE: December 15, 2023 TIME: 4:13 PM [facility] Work Phone: 12-15-2023 Telephone encounter Note BX. COORDINATOR INFORMATION LAB RESULTS: PT INR (no units) Date Value 06/11/2021 1.0 INR (no units) Date Value 10/01/2023 1.0 APTT (sec) Date Value 10/01/2023 28.1 06/11/2021 25.5 Platelet Count (k/uL) Date Value 10/01/2023 271 06/11/2021 275 Current Outpatient Medications Medication Sig glipiZIDE (GLUCOTROL) 5 mg tablet Take 1 tablet (5 mg) by mouth daily before breakfast. empagliflozin (JARDIANCE) 25 mg tablet Take 1 tablet by mouth daily with breakfast. pravastatin (PRAVACHOL) 80 mg tablet Take 1 tablet by mouth once daily. blood sugar diagnostic (VANCLSTYLE PRECISION ADDISON STRIPS) test strip Use with blood glucose test one time daily insulin lispro (HUMALOG KWIKPEN) 100 unit/mL Inject 15 units with breakfast and lunch and 20 units with dinner plus sliding scale (Max daily dose of 91 units daily) amLODIPine (NORVASC) 10 mg tablet Take 10 mg by mouth. flash glucose sensor (VANCLSTYLE MARY ANN 2 SENSOR) kit USE DIRECTED EVERY 14 DAYS lisinopril (ZESTRIL) 20 mg tablet Take 20 mg by mouth once daily. insulin glargine (LANTUS SOLOSTAR U-100 INSULIN) 100 unit/mL (3 mL) Inject 35 Units subcutaneously twice daily. flash glucose scanning reader (VANCLSTYLE MARY ANN 2 READER) Check glucose 4 times daily fluocinonide (LIDEX) 0.05 % ointment Apply to affected areas of rash twice daily x 2 weeks, then once daily x 2 weeks. NOT for face, armpits, or groin Insulin Syringe-Needle U-100 1 mL 25 x [...] POSIFLUSH) 10 mL INTRAVENOUS DIRECTED PRN ALLERGIES Allergen Reactions Opioids - Morphine * Vomiting, GI Upset FILMS SENT TO WORKSTATION: GUIDELINES FOR HOLDING ANTI-PLATELET AND ANTI- COAGULATION THERAPY: none on file NURSE SIGNATURE: Emily Anthony LPN DATE: December 15, 2023 TIME: 3:00 PM [facility] 12-15-2023 Telephone encounter Note STAFF-INITIATED RADIOLOGY BIOPSY / ASPIRATION / DRAIN REQUEST FORM Date: December 15, 2023 Time: 2:40 PM PATIENT CONTACT INFORMATION: Best way to reach patient cell phone SCHEDULING: Date: 03/19/2024 (Specific requests must be greater than 10 business days from the date of request) RADIOLOGY SERVICE GROUP (Abdominal / Thoracic / MSK / Neuro): Bone marrow biopsy for study ACTG 192 SPECIFICS OF THE REQUEST (Please be as detailed as possible): Bone marrow biopsy and aspiration SPECIAL REQUESTS: TISSUE SAMPLE, LABWORK: Special [facility]s: [facility] MEDICAL DIAGNOSIS: CML (i.e. Known primary cancer or suspected diagnosis) IMAGING STUDY AND DATE THAT IS THE BASIS OF THE REQUEST: IR needed for bone marrow biopsy and aspiration (Note: Requests for random organ biopsies, specifically liver and kidney random biopsies do not need imaging.) IMAGING: n/a (If the imaging was obtained outside the [facility] system, PLEASE upload for review prior to approval.) Note to all persons requesting biopsies: All biopsy requests will be scheduled as quickly as possible, based on the clinical urgency, availability of appointment times, the need to hold anti-thrombolytic therapy (aspirin and other blood thinners) and the patient s schedule, including the need for an available front end driver. If a percutaneous biopsy or drainage is not felt to be safe or an alternative method for establishing a diagnosis is possible, this will be discussed directly with the requesting physician. [facility] 10-29-2023 History of Present illness Narrative Images from the original note were not included. [facility] [place] [address] Derrell Hsu Sadi Escobedo. Date of visit: 10/29/2023 Date of : 1970 Age: 53 y.o. Referring : Buffy Chung, WREATH INSPECTOR-NETWORK INTELLIGENCE ANALYST [address] [place] [address] Chief Complaint Chief Complaint Patient presents with Follow-up 09/24 LM to move to 10/28 - [facility] - 3 mo ov - l/s RDG - cardiac MRI 06/30/23, 07/31/23, Holter 06/30/23 - sched w/pt History of Present Illness Updates Since Last Visit Patient is here for follow-up. He is feeling well. He was still has not gone through shoulder surgery. He had his cardiac MRI performed. It did not reveal any substantial LVH. His wall thickness was essentially top-normal with mid septum measuring 13 mm. He had no LV outflow track obstruction. He has no symptoms from a cardiac standpoint. He had an echocardiogram in [place] that was performed due to study drug for CML which had reported increased wall thickness. He is otherwise still planning on going through his shoulder surgery in [place]. Previous HCM Detailed History Past Medical History Past Medical History: Diagnosis Date CML (chronic myelocytic leukemia) ([facility]) Diabetes mellitus type 2, controlled ([facility]) Hyperlipidemia Hypertension Rash Sleep apnea cpap Visual impairment Surgical History has a past surgical history that includes Cholecystectomy; Back surgery; Tonsillectomy; Knee arthroscopy (Right); and Uvulopalatopharyngoplasty (2000). Social History TOBACCO: reports that he has never smoked. He has never used smokeless tobacco. ETOH: reports current alcohol use. DRUGS: reports no history of drug use. Family History Family History Problem Relation Age of Onset Heart disease Father Current medications Current Outpatient Medications Medication Sig Dispense Refill amLODIPine (NORVASC) 5 mg tablet Take 1 tablet (5 mg total) by mouth in the morning. (Patient taking differently: Take 2 tablets (10 mg total) by mouth in the morning.) 90 tablet 3 dapagliflozin propanediol (FARXIGA) 10 mg tablet Take 1 tablet (10 mg total) by mouth in the morning. FREESTYLE MARY ANN 2 SENSOR kit every 14 (fourteen) days. insulin glargine (LANTUS, BASAGLAR) 100 unit/mL (3 mL) insulin pen Inject 35 Units under the skin in the morning and 35 Units before bedtime. insulin lispro (HumaLOG) 100 unit/mL insulin pen 3 (three) times a day with meals. Sliding scale lisinopriL (PRINIVIL,ZESTRIL) 20 mg tablet Take 1 tablet (20 mg total) by mouth in the morning. NON FORMULARY Med Name: trial chemo drug, unknown name [id number] pravastatin (PRAVACHOL) 40 mg tablet Take 1 tablet (40 mg total) by mouth in the morning. No current facility-administered medications for this visit. Allergies @[facility] Review of Systems Review of Systems Constitutional: Negative for malaise/fatigue. HENT: Negative for nosebleeds. Eyes: Negative for blurred vision and double vision. Respiratory: Negative for cough, shortness of breath and wheezing. Hematologic/Lymphatic: Does not bruise/bleed easily. Musculoskeletal: Positive for joint swelling (feet). Negative for joint pain, muscle cramps and muscle weakness. Gastrointestinal: Negative for bloating, abdominal pain, constipation, diarrhea, heartburn, hematochezia, nausea and vomiting. Genitourinary: Negative for hematuria. Neurological: Negative for dizziness, headaches and light-headedness. CARDIOVASCULAR: Please review HPI. Physical Examination Vital Signs: BP 142/76 Pulse 67 Ht 177.8 cm (5' 10 ) Wt 121.1 kg (267 lb) SpO2 96% BMI 38.31 kg/m General appearance: Well preserved, alert, no distress. Skin: Skin color, texture, turgor normal. No rashes or lesions. Head: Normocephalic. No masses, lesions, tenderness or abnormalities Eyes: conjunctivae/corneas clear. PERRL, EOM's intact. Sclera non icteric. Neck: Neck supple, and symmetric. Lungs: Lungs clear to auscultation bilaterally. No retractions or use of accessory muscles. No vocal fremitus. No ronchi, crackle or rale. Heart: S1 > S2. Abdomen: Abdomen soft, non-tender. BS normal. No masses, organomegaly. No hernia noted. Extremities: Extremities normal. No deformities, edema, or skin discoloration. No cyanosis or clubbing noted to the nails. Musculoskeletal: No abnormalities noted Neuro: Gait normal. No focal deficits. Imaging LAST ECHO (Within 2 Years) No results found. LAST STRESS (Within 2 Years) No results found. EKG: No results found. CATH: No results found. (Within 2 Years) Imaging (72 hours) No results found. Risk factors for SCD 2019 ACC/AHA GUIDELINES Assesment and Plan LVH/REINA with septal hypertrophy and dynamic LVOT on screening echos for CML trial drug. Reported septal thickness of 20 mm on [facility] echocardiogram. Technically difficult echocardiogram over the years.Cardiac MRI through [facility] with no substantial LVH, however. Mid septum was 13 mm and most significant area. CML HTN Dilated aorta/thoracic aneurysm 4.3 cm 04/2023 Syncopal episode 4 years ago Unremarkable Holter monitor 06/2023 His cardiac MRI does not have anything definitive for hypertrophic cardiomyopathy. I told him that over time, wall thickness can certainly increase in something may declare itself but it appears measurement at [facility] was suboptimal. He does not have typical LGE I talked to him about getting genetic testing for hypertrophic cardiomyopathy nonetheless and offered this to him despite low clinical suspicion at this point. He wanted to hold off on that. He is upcoming shoulder surgery. I would consider him low risk for this. He has no evidence of LV outflow track obstruction. I do not think we need to change his medications at this point. My plan would be to reassess him intermittently based on his study echocardiogram that are being done through [place]. I have asked him to contact our office when these are performed and we can download images and review his wall thickness. TODAYS ORDERS No orders of the defined types were placed in this encounter. FOLLOW UP Return in about 6 months (around 04/30/2024). Preop clearance letter composed and faxed to Dr. Kilpatrick's office as requested. Also sent to pt's MyChart. documented in this encounter [facility] 10-28-2023 Note HNO ID: [id number] Author: WILLIAM JUDGE APRN.CNP Service: ? Author Type: Nurse Practitioner Type: Progress Notes Filed: 10/28/2023 07:45 Note Text: Please let Derrell know that per insurance preference, Farxiga was switched to Jardiance. Jardiance is in the same class of medications as Farxiga and has a similar mechanism of action. Per paperwork received, Jardiance is the preferred formulary medication. Thank you. William Judge APRN.CNP [facility] 10-28-2023 History of Present illness Narrative Please let Derrell know that per insurance preference, Farxiga was switched to Jardiance. Jardiance is in the same class of medications as Farxiga and has a similar mechanism of action. Per paperwork received, Jardiance is the preferred formulary medication. Thank you. William Judge APRN.CNP documented in this encounter [facility] 10-24-2023 Telephone encounter Note Images from the original note were not included. See MyChart message with patient regarding if patient has tried either of these medications. [facility] 10-24-2023 Miscellaneous Notes Images from the original note were not included. See MyChart message with patient regarding if patient has tried either of these medications. Called [phone] for Prior Auth update. Answered additional clinical questions. Rep by the name of Abdiaziz states a determination will be available between 24-72 hours. Prior Auth#: [id number] Images from the original note were not included. Received the following messgage from [facility]: Called [phone] and initiated verbal prior authorization with rep Abdiaziz. Prior Auth #: [id number]. Awaiting determination Prioe Auth initiated via covermymeds for Farxiga. Will await the determination. documented in this encounter [facility] 10-22-2023 Telephone encounter Note Called [phone] for Prior Auth update. Answered additional clinical questions. Rep by the name of Abdiaziz states a determination will be available between 24-72 hours. Prior Auth#: [id number] [facility] 10-20-2023 Telephone encounter Note Images from the original note were not included. Received the following messgage from [facility]: Called [phone] and initiated verbal prior authorization with rep Abdiaziz. Prior Auth #: [id number]. Awaiting determination [facility] 10-17-2023 Telephone encounter Note Prioe Auth initiated via covermymeds for Farxiga. Will await the determination. [facility] 10-14-2023 Telephone encounter Note IRB# [id number]/[facility]# [id number]: Study Description A Randomized, Open-label, Phase 2 Trial of Ponatinib in Patients with Resistant Chronic Phase Chronic Myeloid Leukemia to Characterize the Efficacy and Safety of a Range of Doses Derrell Avitia [id number] Survival/Group Home Follow Up Call Group Home Follow Up performed every 12 weeks 14 days till 5 years, starting after the last dose of ponatinib or the art conservator/patient decision to discontinue treatment--whichever occurs later. Chart Review for survival performed Raheem Santos Research Coordinator . Patient was last seen Office visit on 10/01/2023 by William Howell MD, PhD Current treatment is Trial ACTG 1920 -taking INV [id number] associated with Clinical Trial Per sponsor email from this will be the last follow-up call for this trial. Patient knows to call in the interim for any questions or concerns. Raheem Santos Research Coordinator [facility] 10-14-2023 Miscellaneous Notes IRB# [id number]/[facility]# ARIA [id number]: Study Description A Randomized, Open-label, Phase 2 Trial of Ponatinib in Patients with Resistant Chronic Phase Chronic Myeloid Leukemia to Characterize the Efficacy and Safety of a Range of Doses Derrell Avitia [id number] Survival/Automated Cutting Machine Operator Follow Up Call Automated Cutting Machine Operator Follow Up performed every 12 weeks 14 days till 5 years, starting after the last dose of ponatinib or the art conservator/patient decision to discontinue treatment--whichever occurs later. Chart Review for survival performed Raheem Santos Research Coordinator . Patient was last seen Office visit on 10/01/2023 by William Howell MD, PhD Current treatment is Trial ACTG 1920 -taking INV [id number] associated with Clinical Trial Per sponsor email from this will be the last follow-up call for this trial. Patient knows to call in the interim for any questions or concerns. Raheem Santos Research Coordinator documented in this encounter [facility] 10-03-2023 Note HNO ID: [id number] Author: SHAGGY KAUR MD, PhD Service: Radiology Author Type: Physician Type: Procedures Filed: 10/03/2023 12:02 Note Text: RADIOLOGY BRIEF PROCEDURE NOTE Procedure Date: October 03, 2023 Incision/Procedure Start Time: 08:34 Incision Close/Procedure End Time: 08:44 UNIVERSAL PROTOCOL / SAFETY CHECKLIST Procedure to be Performed: CT guided left posterior iliac bone marrow aspiration and biopsy with moderate sedation Sign in Communication: Completed Time Out: Team Confirms the Correct Patient, Correct Procedure, Correct Site and Site Marking, Correct Position (if applicable). Time: 08:15 Affirmation of Time Out: YES Sign Out Discussion: Completed Informed Consent obtained under separate note. ATTENDING RADIOLOGIST: Musculoskeletal: Dr. Rafael Maravilla GUEST SPECIALIST: Fellow: Dr. Shaggy Kaur MD STAFF SUPERVISING PROCEDURE: YES PRE-PROCEDURAL DIAGNOSIS: CML PROCEDURE: Biopsy MEDICAL HISTORY/PHYSICAL EXAM: Radiology personnel have verified that HANDP dated 10/03/2023 exists in patient record. Confirm Allergies, Labs, Baseline vital signs, Baseline neurological status, or Peripheral pulses unchanged. STATUS: Not applicable SUMMARY: Following full and informed consent, the patient was brought to the CT procedure room and positioned on the table. Subsequently, after localization and administration of IV and local anesthesia, an 11g On Control needle was advanced into the left posterior iliac crest. Liquid marrow aspirate and a solid core sample were then collected in the usual fashion. Uncomplicated procedure. Please see full dictation for further details. POST-PROCEDURAL DIAGNOSIS: Same ESTIMATED BLOOD LOSS: 0 ml SPECIMENS: 14 mL liquid aspirate, 1.6 cm solid core COMPLICATIONS: None DISPOSITION: Patient hemodynamically stable, alert and awake. Patient transferred to Radiology Recovery/PACU for monitoring prior to discharge home. FULL DICTATION REPORT TO FOLLOW. SIGNATURE: Shaggy Kaur MD PATIENT NAME: Derrell Avitia JR DATE: October 03, 2023 TIME: 11:55 AM [facility] 10-03-2023 Note HNO ID: [id number] Author: BOOGIE CANELA Tech Service: Radiology Author Type: Vamp Stitcher Type: Progress Notes Filed: 10/16/2023 12:03 Note Text: Radiology Service Progress Note PATIENT NAME: Derrell Avitia JR DATE OF SERVICE: October 03, 2023 TIME: 8:10 AM PATIENT IDENTITY VERIFICATION COMPLETED USING TWO (2) IDENTIFIERS: Name and Date of confirmed by patient verbally. FALL SCREENING: Has the patient had 2 falls in the last year or 1 fall with injury or currently using an Ambulatory Assistive Device (Walker, Cane, Wheelchair, Crutches, etc.)? No PATIENT GENDER DATA: Male PATIENT RELEVANT IMPLANT DATA REVIEWED: Yes PATIENT PRESENTS WITH AN IMPLANTABLE OR ATTACHED RECYCLING CREW SUPERVISOR: No RADIOLOGY DEPARTMENT: CT; Exam(s) Completed: BONE MARROW PERIPHERAL IV DATA: Not applicable SIGNED BY: Nathalia Oscar October 03, 2023 8:10 AM [facility] 10-01-2023 Note HNO ID: [id number] Author: EMMA TUTTLE RN Service: ? Author Type: Registered Nurse Type: Progress Notes Filed: 10/01/2023 16:37 Note Text: ------ Summary: ACTG 1920 / 20-998 cycle 42 day 28 ------ ACTG 192 A phase 1b study of the pharmacokinetics, safety and efficacy of orally administered [id number] in subjects with refractory chronic myeloid leukemia [...] report. Patient reported that he saw a package sealer and is being treated for right heal [...] [1] BSA 0 BMI 0 Temp 36 ?C (96.8 ?F) Pulse 59 ! [2] Resp 18 BP [...] L4 and L5 infusion Prior to 03/2012 [place] ANESTH,KNEE JOINT; NOS right knee Prior to [...] 12/2014 -- 03/2016 Bosutinib 03/2016 - 05/02/2017 [facility] 2915 15-875 trial of Ponatinib 05/21/2017 - [...] Kenalog cream Apply 2x/day to affected areas. (more content not included)... [facility] 10-01-2023 History of Present illness Narrative Summary: ACT 1919- cycle 42 day 28 ACT 1919 A phase 1b study of the pharmacokinetics, safety and efficacy of orally administered [id number] in subjects with refractory chronic myeloid leukemia [...] report. Patient reported that he saw a package sealer and is being treated for right heal [...] L4 and L5 infusion Prior to 03/2012 [place] ANESTH,KNEE JOINT; NOS right knee Prior to [...] 03/2016 Bosutinib 03/2016 - 05/02/2017 [facility] 2915 15-875 trial of Ponatinib 05/21/2017 - [...] 14 units sq at dinner 05/2022 Diabetes [place] 5/325 mg 1 tab PO x 1 [...] treat: no. Outcome:resolved. Constipation Grade 1 Unrelated Startdate:06/22/20.Resolved:06/23/2020. Drugs used to treat: no. Outcome: resolved. Hypoalbuminemia Grade 1 Unrelated Startdate:06/22/20.Resolved:07/17/2020r ugs used to treat: no. Outcome: resolved. Platelet count decreased Grade 1 Possibly related Startdate:07/13/20.Resolved:07/26/2020. Drugs used to treat: no. Outcome: resolved. Headache Grade 1 Possibly related Startdate:07/10/2020.Resolved:08/14/2020. Drugs used to treat:yes. Outcome: resolved. Lipase [...] on 04/17/2023 then every other day. Lot# [id number] Patient aware next appointment is 12/24/2023 and can be viewed on [employer]. Patient presented today to participate on the [...] nurse's contact information and after hours fellows environmental technical officer. Patient understands that this participation is voluntary and that he may withdraw at any time during the trial. Emma Tuttle RN, OCN documented in this encounter [facility] 10-01-2023 Note HNO ID: [id number] Author: RAHEEM SANTOS, Research Coordinator Service: ? Author Type: Research Type: Progress Notes Filed: 10/01/2023 11:57 Note Text: CRC Documentation IRB#: [id number], [facility]#: ACTG 1920, Study Title: A phase 1b study of the pharmacokinetics, safety and efficacy of orally administered [id number] in subjects with refractory chronic myeloid leukemia [...] completed: No-Completed by Ludy Mead OCCA EKGs (Triplicate): Yes Given to MOISÉS/Emma Lemus RN for review. Raheem Santos, Research Coordinator [facility] 10-01-2023 History of Present illness Narrative CRC Documentation IRB#: [id number], [facility]#: ACTG 1920, Study Title: A phase 1b study of the pharmacokinetics, safety and efficacy of orally administered [id number] in subjects with refractory chronic myeloid leukemia [...] completed: No-Completed by Ludy Mead OCCA EKGs (Triplicate): Yes Given to MOISÉS/Emma Lemus RN for review. Raheem Santos, Research Coordinator documented in this encounter [facility] 10-01-2023 Note HNO ID: [id number] Author: WILLIAM HOWELL MD, PhD Service: ? Author Type: Physician Type: Progress Notes Filed: 10/21/2023 10:26 Note Text: [facility] Department of Hematologic Oncology and Blood Disorders PATIENT NAME: Derrell Aracelis [facility] NO: [id number] Date of service: 10/01/2023 Reason for visit: Follow up of CML on clinical trial Diagnosis: 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 (imatinib, dasatinib, nilotinib, bosutinib and ponatinib) Current Treatment - On a clinical trial - ACTG 1920 -1 Title: A phase 1b study of the pharmacokinetics, safety and efficacy of orally administered [id number] in subjects with refractory chronic myeloid leukemia [...] pharmacokinetics, safety and efficacy of orally administered [id number] in subjects with refractory chronic myeloid leukemia [...] same [place] [address], [place] [address], monocytosis (5700), 6700 lymphocytes, 500 basophils and thrombocytopenia with platelets at 246097. Metaphase cytogenetics showed presence of t(9;22) in [...] 1.61 IS% as of 11/11/2014. He never ac (more content not included)... [facility] 10-01-2023 History of Present illness Narrative [facility] Department of Hematologic Oncology and Blood Disorders PATIENT NAME: Derrell Avitia [facility] NO: [id number] Date of service: 10/01/2023 Reason for visit: Follow up of CML on clinical trial Diagnosis: 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 (imatinib, dasatinib, nilotinib, bosutinib and ponatinib) Current Treatment - On a clinical trial - ACT 1920 20-8 Title: A phase 1b study of the pharmacokinetics, safety and efficacy of orally administered [id number] in subjects with refractory chronic myeloid leukemia [...] the CML clinical trial - ACT 1920 8 Title: A phase 1b study of the pharmacokinetics, safety and efficacy of orally administered [id number] in subjects with refractory chronic myeloid leukemia [...] same [place] [address], [place] [address], monocytosis (5700), 6700 lymphocytes, 500 basophils and thrombocytopenia with platelets at 719121. Metaphase cytogenetics showed presence of t(9;22) in [...] trilineage hematopoiesis, decreased iron stores. Cytogenetics showed 46,XY,t(9;22)(q34;q11.2)[3]/46,XY[17] , consistent with failure to achieve CCyR. BCR-ABL [...] pharmacokinetics, safety and efficacy of orally administered [id number] in subjects with refractory chronic myeloid leukemia [...] motor strength. Psychiatric: Memory, short term & chcf intact; no disturbance in sleep pattern and [...] > 10 years Current medication: Reviewed from [facility] and integrated in assessment and plan. Social History: He is . 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 He does not smoke cigarettes and has [...] CBC with differential reviewed from [facility] from 01/22/2023 and integrated in assessment and plan. William Howell MD PhD MPH Associate Staff Hematologic Oncology and Blood Disorders Pager [phone] Date of service: 10/01/2023 I spent a total of 40 minutes on the date of the service which included preparing to see the patient, [id number] patient care, completing clinical documentation, obtaining and/or reviewing separately obtained history, performing a medically appropriate examination, counseling and educating the patient/family/caregiver, ordering medications, tests, or procedures, independently interpreting laboratory and imaging results (not separately reported), communicating results to the patient/family/caregiver, and care coordination (not separately reported). documented in this encounter [facility] 10-01-2023 Nurse Note Additional intake questions: Has the patient had fever, nausea, vomiting, diarrhea, constipation, fatigue for > 1 week? Yes, fatigue Does the patient have a decreased appetite? No Does patient want to see a Concrete Rubber? No (yes to any of above refer patient to schedulers for dietitian appointment) ) Does patient have any new or increased numbness or tingling of extremities? No Is patient interested in fertility information? No Does patient need any prescription refills? No Does patient have an advanced directive in place? No [facility] 10-01-2023 Nurse Note Additional intake questions: Has the patient had fever, nausea, vomiting, diarrhea, constipation, fatigue for > 1 week? Yes, fatigue Does the patient have a decreased appetite? No Does patient want to see a Concrete Rubber? No (yes to any of above refer patient to schedulers for dietitian appointment) ) Does patient have any new or increased numbness or tingling of extremities? No Is patient interested in fertility information? No Does patient need any prescription refills? No Does patient have an advanced directive in place? No documented in this encounter [facility] 09-10-2023 Miscellaneous Notes Left message on patient's answering machine to remind them of their appointment time and to bring a current list of medications with them. documented in this encounter [facility] 09-10-2023 Telephone encounter Note Left message on patient's answering machine to remind them of their appointment time and to bring a current list of medications with them. [facility] 08-29-2023 Instructions Kylee Dalal APRN.CNP - 08/29/2023 7:59 AM EDT Plan Continue: [...] in 6 months documented in this encounter [facility] 08-29-2023 Note HNO ID: [id number] Author: KYLEE DALAL APRN.CNP Service: ? Author Type: Nurse Practitioner Type: Progress Notes Filed: 08/29/2023 08:12 Note Text: Endocrinology Follow Up PCP: Buffy Chung CNP [facility] History of Present Illness Derrell Hsu Sadi ESCOBEDO is a 52 year old male presents today for follow up of DM Type 2. At [facility] increased insulin and started Farxiga. Sugars have [...] Take 20 mg by mouth once daily. BERT Inhibitors pravastatin (PRAVACHOL) 40 mg tablet Take [...] dose. Medical Supplies and DME - Insulin Tynan-Syringes and Admin Supplies omega-3 acid ethyl esters (LOVAZA) 1 gram capsule Take 2 capsules by mouth twice daily. Antihyperlipidemic - [place]-3 Fatty Acid Type Physical Activity: Sedentary Diet: [...] palpitations GI: No nausea, vomiting, or diarrhea (more content not included)... [facility] 08-29-2023 History of Present illness Narrative Endocrinology Follow Up PCP: Buffy Chung [facility] History of Present Illness Derrell Avitia JR is a 52 year old male presents today for follow up of DM Type 2. At [facility] increased insulin and started Farxiga. Sugars have [...] Take 20 mg by mouth once daily. BERT Inhibitors pravastatin (PRAVACHOL) 40 mg tablet Take 1 tablet by mouth once daily. Antihyperlipidemic - HMG CoA Reductase Inhibitors (statins) OTHER Medication Dosage Pharm Subclass flash glucose scanning reader (VANCLSTYLE MARY ANN 2 READER) Check glucose 4 [...] dose. Medical Supplies and DME - Insulin Tynan-Syringes and Admin Supplies omega-3 acid ethyl esters (LOVAZA) 1 gram capsule Take 2 capsules by mouth twice daily. Antihyperlipidemic - [place]-3 Fatty Acid Type Physical Activity: Sedentary Diet: [...] - 1.7 ng/dL Final Impression/Recommendations IMPRESSION Derrell Hsu Sadi ESCOBEDO is a 52 year old here for [...] Desk Reference: National Heart, Lung, and Blood English. National Institutes of Health. 2001: NIH Publication No. 3305. HDL Cholesterol Date Value Ref Range Status 05/13/2022 38 (L) >39 mg/dL Final Comment: 40-59 mg/dL, Acceptable >59 mg/dL, High: Negative risk factor for coronary heart disease <40 mg/dL, Low: Positive risk factor for coronary heart disease Reference: 1. National Cholesterol Education Program ATP III Guideline At-A-Glance Quick Desk Reference: National Heart, Lung, and Blood English. National Institutes of Health. 2001: [facility] Publication No. 3305. LDL Cholesterol Date Value [...] Desk Reference: National Heart, Lung, and Blood English. National Institutes of Health. 2001: [facility] Publication No. 3305. Latest Ref Rng 07/09/2023 [...] This patient has microalbuminuria and is on BERT-I or ARB and SGLT2i. 5. Ophthalmology: Annual [...] to expedite mailing) documented in this encounter [facility] 08-08-2023 Note HNO ID: [id number] Author: WILLIAM HOWELL MD, PhD Service: ? Author Type: Physician Type: Progress Notes Filed: 08/08/2023 17:09 Note Text: [facility] Department of Hematologic Oncology and Blood Disorders PATIENT NAME: Derrell Hsu [facility] NO: [id number] Date of service: 07/07/2023 Reason for visit: Follow up of CML on clinical trial Diagnosis: 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 (imatinib, dasatinib, nilotinib, bosutinib and ponatinib) Current Treatment - On a clinical trial - ACTG 1920 20-998 Title: A phase 1b study of the pharmacokinetics, safety and efficacy of orally administered RSP8875 in subjects with refractory chronic myeloid leukemia [...] pharmacokinetics, safety and efficacy of orally administered [id number] in subjects with refractory chronic myeloid leukemia [...] same date [place] [address], [place] [address], monocytosis (5700), 6700 lymphocytes, 500 basophils and thrombocytopenia with platelets at 989681. Metaphase cytogenetics showed presence of t(9;22) in [...] a MMR on dasatinib despite being on (more content not included)... [facility] 08-08-2023 History of Present illness Narrative [facility] Department of Hematologic Oncology and Blood Disorders PATIENT NAME: Derrell Hsu [facility] NO: [id number] Date of service: 07/07/2023 Reason for visit: Follow up of CML on clinical trial Diagnosis: 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 (imatinib, dasatinib, nilotinib, bosutinib and ponatinib) Current Treatment - On a clinical trial - ACT 1920 20-998 Title: A phase 1b study of the pharmacokinetics, safety and efficacy of orally administered [id number] in subjects with refractory chronic myeloid leukemia [...] pharmacokinetics, safety and efficacy of orally administered [id number] in subjects with refractory chronic myeloid leukemia [...] same date [place] [address], [place] [address], monocytosis (5700), 6700 lymphocytes, 500 basophils and thrombocytopenia with platelets at 579769. Metaphase cytogenetics showed presence of t(9;22) in [...] enrolled on a clinical trial, [facility] 2915 15-875 A Randomized, Open-label, Phase 2 [...] trilineage hematopoiesis, decreased iron stores. Cytogenetics showed 46,XY,t(9;22)(q34;q11.2)[3]/46,XY[17] , consistent with failure to achieve CCyR. BCR-ABL [...] pharmacokinetics, safety and efficacy of orally administered [id number] in subjects with refractory chronic myeloid leukemia [...] motor strength. Psychiatric: Memory, short term & chcf intact; no disturbance in sleep pattern and [...] years Current medication: Reviewed from [facility] and integrated in assessment and plan. Social History: He is . 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 He does not smoke cigarettes and has [...] CBC with differential reviewed from [facility] from 01/22/2023 and integrated in assessment and plan. William Howell MD PhD MPH Associate Staff Hematologic Oncology and Blood Disorders Pager [phone] Date of service: 07/07/2023 documented in this encounter [facility] 07-09-2023 Nurse Note Additional intake questions: Has the patient had fever, nausea, vomiting, diarrhea, constipation, fatigue for > 1 week? Yes, fatigue Does the patient have a decreased appetite? No Does patient want to see a Concrete Rubber? No (yes to any of above refer patient to schedulers for dietitian appointment) ) Does patient have any new or increased numbness or tingling of extremities? No Is patient interested in fertility information? No Does patient need any prescription refills? No Does patient have an advanced directive in place? No, documented in this encounter [facility] 06-30-2023 History of Present illness Narrative Images from the original note were not included. [facility] [address] [place] [id number] Derrell Avitia JrSixto Date of visit: 06/30/2023 Date of : 1970 Age: 52 y.o. 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 He is getting getting screening echocardiogram due to a trial drug for CML every 3 months at [facility]. His more recent echocardiogram showed LVH that is asymmetric with septal predominance. He would dynamic LV outflow track obstruction on 1 of the echos. They have reported a septal thickness up to 20 mm. His previous echoes have not either showed no substantial LVH or suboptimal windows and 1 of them showed concentric LVH. He has had hypertension. No orthopnea. No PND. He would remote syncopal about possibly about 4 years ago. He has not sure if he completely blacked out. There was no clear provoking factors at the time. He does not have any dyspnea on exertion. He can walk several blocks. He can keep up with his . He does have palpitations intermittently. No presyncope or syncope. The palpitations have been less of an issue since [place]. He was recently started on amlodipine. He has not noticed any worsening symptoms. Previous HCM Detailed History Past Medical History Past Medical History: Diagnosis Date CML (chronic myelocytic leukemia) ([facility]) Diabetes mellitus type 2, controlled ([facility]) Hyperlipidemia Hypertension Rash Sleep apnea cpap Visual impairment Surgical History has a past surgical history that includes Cholecystectomy; Back surgery; Tonsillectomy; Knee arthroscopy (Right); and Uvulopalatopharyngoplasty (2000). Social History TOBACCO: reports that he has never smoked. He has never used smokeless tobacco. ETOH: reports current alcohol use. DRUGS: reports no history of drug use. Family History Family History Problem Relation Age of Onset Heart disease Father Current medications Current Outpatient Medications Medication Sig Dispense Refill amLODIPine (NORVASC) 5 mg tablet Take 1 tablet (5 mg total) by mouth in the morning. (Patient taking differently: Take 2 tablets (10 mg total) by mouth in the morning.) 90 tablet 3 dapagliflozin propanediol (FARXIGA) 10 mg tablet Take 1 tablet (10 mg total) by mouth in the morning. FREESTYLE MARY ANN 2 SENSOR kit every 14 (fourteen) days. insulin glargine (LANTUS, BASAGLAR) 100 unit/mL (3 mL) insulin pen Inject 35 Units under the skin in the morning and 35 Units before bedtime. insulin lispro (HumaLOG) 100 unit/mL insulin pen 3 (three) times a day with meals. Sliding scale lisinopriL (PRINIVIL,ZESTRIL) 20 mg tablet Take 1 tablet (20 mg total) by mouth in the morning. NON FORMULARY Med Name: trial chemo drug, unknown name [id number] pravastatin (PRAVACHOL) 40 mg tablet Take 1 tablet (40 mg total) by mouth in the morning. No current facility-administered medications for this visit. Allergies @[facility]@ Review of Systems Review of Systems Constitutional: Negative for malaise/fatigue. HENT: Negative for nosebleeds. Respiratory: Negative for cough, shortness of breath and wheezing. Hematologic/Lymphatic: Does not bruise/bleed easily. Musculoskeletal: Negative for joint pain, joint swelling, muscle cramps and muscle weakness. Gastrointestinal: Negative for bloating, abdominal pain and heartburn. Genitourinary: Negative for hematuria. Neurological: Positive for headaches. Negative for dizziness, light-headedness and weakness. CARDIOVASCULAR: Please review HPI. Physical Examination Vital Signs: BP 150/88 Pulse 75 Ht 177.8 cm (5' 10 ) Wt 124.3 kg (274 lb) SpO2 98% BMI 39.31 kg/m General appearance: Well preserved, alert, no distress. Skin: Skin color, texture, turgor normal. No rashes or lesions. Head: Normocephalic. No masses, lesions, tenderness or abnormalities Eyes: conjunctivae/corneas clear. PERRL, EOM's intact. Sclera non icteric. Neck: Neck supple, and symmetric Lungs: Lungs clear to auscultation bilaterally. No retractions or use of accessory muscles. No vocal fremitus. No ronchi, crackle or rale. Heart: S1 > S2. No murmur on exam. No murmur with Valsalva or dynamic maneuvers. Abdomen: Abdomen soft, non-tender. BS normal. No masses, organomegaly. No hernia noted. Extremities: Extremities normal. No deformities, edema, or skin discoloration. No cyanosis or clubbing noted to the nails. Musculoskeletal: No abnormalities noted Neuro: Gait normal. No focal deficits. Imaging LAST ECHO (Within 2 Years) No results found. LAST STRESS (Within 2 Years) No results found. EKG: No results found. CATH: No results found. Imaging (72 hours) No results found. Risk factors for SCD 2019 ACC/AHA GUIDELINES SCD, VF, Sustained VT (Class 1 indication) : None Major criteria (2 a) Massive LVH defined as anteroseptum measuring greater than or equal to 30 mm (greater than or equal to 28 mm at the discretion of the treating track grinder) : Sudden cardiac in one or greater first degree or close relative younger than 50. Close is defines as second degree. Third degree taken into consideration if multiple: Unexplained syncope: 1 or more episodes involving acute transient loss of consciousness unlikely to be neurocardiogenic and not attributable to LVOTO especially when occurring within 6 months from evaluation (event beyond 5 years do not appear to have relevance): Systolic dysfunction with LVEF <50% by echo or CMR: LV apical aneurysm independent of size : Minor criteria and when isolated 2 b 1. Extensive LGE on cMRI greater than or equal to 15% of LV mass: : MRI pending 2. NSVT with runs are frequent (>=3), long (>=10 beats) and fast (>=200 bpm) occurring over 24 or 48 hour monitor. 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 Reported septal thickness of 20 mm on [facility] echocardiogram. Technically difficult echocardiogram over the years. CML Palpitations HTN Dilated aorta/thoracic aneurysm 4.3 cm 04/2023 Syncopal episode 4 years ago2 Plan: Cardiac MRI to better delineate LVH which would seem unlikely related to hypertensive heart disease based on [place] reports. Will look for LGE. If there is suggestion of likely hypertrophic cardiomyopathy on the cardiac MRI, I talked to him about getting genetic testing. Holter monitor now He does not have a murmur suggestive of LV outflow track obstruction with dynamic maneuvers. That being said, depending on the Holter results and whether suggesting of LV outflow track obstruction on his follow-up echocardiogram which is planned in [place] or on cardiac MRI, I would likely switch him to a beta-christina and discontinue his amlodipine. We can use other agents such as spironolactone in follow-up for hypertension. He does not have symptoms suggestive of LV outflow track obstruction currently. We will also better evaluate his thoracic aorta on MRI Follow-up in a few months after the MRI is complete. If suggestion of hypertrophic cardiomyopathy, would offer him genetic testing when it comes back. We went over the natural history of disease and family screening as well as watching out for symptoms related to LV outflow track obstruction and long-term arrhythmogenic risk. He wanted to go through shoulder surgery. I see no reason he can not go through this at low to intermediate risk. He has no murmur suggestive of a significant resting LV outflow track obstruction and has no symptoms currently. I do not think he needs to wait on the MRI and Holter to go through surgery and I do not think it will pack changer. He may have some increased propensity for dynamic LV outflow track obstruction. If he would become hypotensive during the procedure, would aggressively hydrate him and if a pressor was ever needed, Addison-Synephrine should be chosen. However, I think he can undergo his surgery in [place] given his lack of symptoms otherwise and echocardiogram findings. We will see him back in follow-up. Genetics: Pending potentially after MRI General recommendations: Maintain habitual moderate-intensity exercise regimen aiming for 150 minutes of exercise each week Kathleen Gonzalez TODAYS ORDERS Orders Placed This Encounter Procedures MR cardiac for morphology with and without contrast Holter monitor 24-48 hour FOLLOW UP Return in about 3 months (around 09/29/2023). I explained the plan to him and answered all questions. Thank you for allowing me to participate in him care. Please call with any questions or concerns. 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 (imatinib, dasatinib, nilotinib, bosutinib and ponatinib) Current Treatment - On a clinical trial - ACTG 1919 Title: A phase 1b study of the pharmacokinetics, safety and efficacy of orally administered [id number] in subjects with refractory chronic myeloid leukemia [...] started the CML clinical trial - ACTG 1919 Title: A phase 1b study of the pharmacokinetics, safety and efficacy of orally administered [id number] in subjects with refractory chronic myeloid leukemia [...] same [place] [address], [place] [address], monocytosis (5700), 6700 lymphocytes, 500 basophils and thrombocytopenia with platelets at 973438. Metaphase cytogenetics showed presence of t(9;22) in [...] trilineage hematopoiesis, decreased iron stores. Cytogenetics showed 46,XY,t(9;22)(q34;q11.2)[3]/46,XY[17] , consistent with failure to achieve CCyR. BCR-ABL [...] and consented for the clinical trial - [facility] 1920 20-998 Title: A phase 1b study of the pharmacokinetics, safety and efficacy of orally administered [id number] in subjects with refractory chronic myeloid leukemia [...] motor strength. Psychiatric: Memory, short term & chcf intact; no disturbance in sleep pattern and [...] > 10 years Current medication: Reviewed from [facility] and integrated in assessment and plan. Social History: He is . 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 He does not smoke cigarettes and has [...] CBC with differential reviewed from [facility] from 01/22/2023 and integrated in assessment and plan. William Howell MD PhD MPH Associate Staff Hematologic Oncology and Blood Disorders Pager [phone] Date of service: 04/16/2023 documented in this encounter [facility] 05-20-2023 Miscellaneous Notes IRB# [id number]/[facility]# ARIA [id number]: Study Description A Randomized, Open-label, Phase 2 Trial of Ponatinib in Patients with Resistant Chronic Phase Chronic Myeloid Leukemia to Characterize the Efficacy and Safety of a Range of Doses Derrell Avitia JR [id number] Survival/Group Home Follow Up Call Group Home Follow Up performed every 12 weeks 14 days till 5 years, starting after the last dose of ponatinib or the art conservator/patient decision to discontinue treatment--whichever occurs later. Chart Review for survival performed Raheem Santos, Research Coordinator . Patient was last seen in clinic on 04/18/2023 by Ezra Kang MD Current treatment is Trial ACTG 192. Next survival f/u due 06/12/2023 Patient aware that next follow up call will occur on 06/12/2023. Patient knows to call in the interim for any questions or concerns. Raheem Santos, Research Coordinator documented in this encounter [facility] 04-16-2023 History of Present illness Narrative Summary: ACTG 1919 / cycle 36 day 28 ACTG 1919 A phase 1b study of the pharmacokinetics, safety and efficacy of orally administered [id number] in subjects with refractory chronic myeloid leukemia (CML). Patient is here for screening for ACTG 192 / IRB -8. He was diagnosed with BCR-ABL positive chronic [...] ) BSA 2.5 BMI 39.89 Temp 36.6 C (97.8 F ) Pulse 74 Resp 14 BP 161/89 SpO2 [...] Prior to 03/2012 L4 and L5 infusion [place] ANESTH,KNEE JOINT; NOS right Prior to 03/2012Prior [...] 03/2016 Bosutinib 03/2016 - 05/02/2017 [facility] 2915 15-875 trial of Ponatinib 05/21/2017 - [...] 14 units sq at dinner 05/2022 Diabetes Hartland 5/325 mg 1 tab PO x 1 [...] worsen during the clinical trial. Fasting labs -28 06/05/2020 Leukocytosis Grade 3 UNRELATED Start [...] treat: no. Outcome:resolved. Constipation Grade 1 Unrelated Startdate:06/22/20.Resolved:06/23/2020. Drugs used to treat: no. Outcome: resolved. Hypoalbuminemia Grade 1 Unrelated Startdate:06/22/20.Resolved:07/17/2020r ugs used to treat: no. Outcome: resolved. Platelet count decreased Grade 1 Possibly related Startdate:07/13/20.Resolved:07/26/2020. Drugs used to treat: no. Outcome: resolved. Headache Grade 1 Possibly related Startdate:07/10/2020.Resolved:08/14/2020. Drugs used to treat:yes. Outcome: resolved. Lipase [...] on 04/17/2023 then every other day. Lot# [id number] Patient aware next appointment 07/08/2023, will appear on Phot[employer] when processed. Patient presented today to participate [...] nurse's contact information and after hours fellows environmental technical officer. Patient understands that this participation is voluntary and that he may withdraw at any time during the trial. Emma Tuttle RN, OCN documented in this encounter [facility] 04-16-2023 Nurse Note Additional intake questions: Has the patient had fever, nausea, vomiting, diarrhea, constipation, fatigue for > 1 week? Yes, constipation (day of last BM 04/15/23) and fatigue Does the patient have a decreased appetite? No Does patient want to see a Concrete Rubber? No (yes to any of above refer patient to schedulers for dietitian appointment) ) Does patient have any new or increased numbness or tingling of extremities? Yes, feet Is patient interested in fertility information? No Does patient need any prescription refills? No Does patient have an advanced directive in place? No, Patient referred to Resource Center documented in this encounter [facility] 03-21-2023 Miscellaneous Notes Last office visit 10/15/22 Future appt scheduled 04/17/23 Last A1C 01/22/23 documented in this encounter [facility] 02-03-2023 Miscellaneous Notes IRB# [id number]/[facility]# ARIA [id number]: Study Description A Randomized, Open-label, Phase 2 Trial of Ponatinib in Patients with Resistant Chronic Phase Chronic Myeloid Leukemia to Characterize the Efficacy and Safety of a Range of Doses Derrell Avitia [id number] Survival/Automated Cutting Machine Operator Follow Up Call Group Home Follow Up performed every 12 weeks 14 days till 5 years, starting after the last dose of ponatinib or the art conservator/patient decision to discontinue treatment--whichever occurs later. Chart Review for survival performed Rhaeem Santos, Research Coordinator . Patient was last seen in clinic on 01/22/2023 by Emma Tuttle RN. Current treatment is Trial ACTG 1920. Next survival f/u due 04/28/2023. Patient aware that next follow up call will occur on 04/28/2023. Patient knows to call in the interim for any questions or concerns. Raheem Santos, Research Coordinator February 03, 2023 12:16 PM documented in this encounter [facility] 01-24-2023 Miscellaneous Notes Spoke to pt [...] this procedure: low risk. Reference from [facility]: [email or web address]://[facility].policytech.com/dotNet/doc uments/?[email or web address] STAFF SIGNATURE: Shaggy Kaur MD DATE: January [...] CONTACT INFORMATION: Best way to reach patient [phone] SCHEDULING: Date: 04/18/2023 (Specific requests must be [...] random biopsies do not need imaging.) IMAGING: [facility] [place] (If the imaging was obtained outside the [facility] [place] system, PLEASE upload for review prior to approval.) Note to all persons requesting biopsies: All biopsy requests will be scheduled as quickly as possible, based on the clinical urgency, availability of appointment times, the need to hold anti-thrombolytic therapy (aspirin and other blood thinners) and the patient s schedule, including the need for an available front end driver. If a percutaneous biopsy or drainage is not felt to be safe or an alternative method for establishing a diagnosis is possible, this will be discussed directly with the requesting physician. documented in this encounter [facility] 01-22-2023 History of Present illness Narrative Summary: ACTG 1920 / 20-998 cycle 33 day 28 ACTG 1928 A phase 1b study of the pharmacokinetics, safety and efficacy of orally administered [id number] in subjects with refractory chronic myeloid leukemia [...] lb) BSA 0 BMI 0 Temp 36.3 C (97.4 F ) Pulse 82 Resp 18 BP 151/82 PAST [...] floaters in both eyes (eye exam 05/05) 087510 Active no medication or treatment Diabetes 12/2019 Active controlled with medication Rash 11/2019 Active uncontrolled,medication to start 05/29/2020 PAST SURGICAL HISTORY Procedure Laterality Date BACK SURGERY HX Prior to 03/2012 L4 and L5 infusion [place] ANESTH,KNEE JOINT; NOS right Prior to 03/2012Prior [...] 03/2016 Bosutinib 03/2016 - 05/02/2017 [facility] 2915 15-875 trial of Ponatinib 05/21/2017 - [...] 14 units sq at dinner 05/2022 Diabetes Hartland 5/325 mg 1 tab PO x 1 [...] treat: no. Outcome:resolved. Constipation Grade 1 Unrelated Startdate:06/22/20.Resolved:06/23/2020. Drugs used to treat: no. Outcome: resolved. Hypoalbuminemia Grade 1 Unrelated Startdate:06/22/20.Resolved:07/17/2020r ugs used to treat: no. Outcome: resolved. Platelet count decreased Grade 1 Possibly related Startdate:07/13/20.Resolved:07/26/2020. Drugs used to treat: no. Outcome: resolved. Headache Grade 1 Possibly related Startdate:07/10/2020.Resolved:08/14/2020. Drugs used to treat:yes. Outcome: resolved. Lipase [...] HQP on 01/23/2023 every other day. Lot# [id number] Patient aware next appointment is 11/01/2022 for bone marrow biopsy and he reports he has [facility] for appointments. Patient presented today to participate [...] nurse's contact information and after hours fellows environmental technical officer. Patient understands that this participation is voluntary and that he may withdraw at any time during the trial. 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 Metaphase cytogenetics showed presence of t(9;22) in [...] trilineage hematopoiesis, decreased iron stores. Cytogenetics showed 46,XY,t(9;22)(q34;q11.2)[3]/46,XY[17] , consistent with failure to achieve CCyR. BCR-ABL [...] pharmacokinetics, safety and efficacy of orally administered [id number] in subjects with refractory chronic myeloid leukemia [...] motor strength. Psychiatric: Memory, short term & bosom presser intact; no disturbance in sleep pattern and [...] years Current medication: Reviewed from [facility] and integrated in assessment and plan. Social History: He is . 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 He does not smoke cigarettes and has [...] CBC with differential reviewed from [facility] from 01/22/2023 and integrated in assessment and plan. William Howell MD PhD MPH Associate Staff Hematologic Oncology and Blood Disorders Pager [phone] Date of service: 01/22/2023 documented in this encounter [facility] 01-22-2023 Nurse Note Additional intake questions: Has the patient had fever, nausea, vomiting, diarrhea, constipation, fatigue for > 1 week? No Does the patient have a decreased appetite? No Does patient want to see a Concrete Rubber? 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 (imatinib, dasatinib, nilotinib, bosutinib and ponatinib) Current Treatment - On a clinical trial - ACT 1920 -8 Title: A phase 1b study of the pharmacokinetics, safety and efficacy of orally administered [id number] in subjects with refractory chronic myeloid leukemia [...] the CML clinical trial - ACT 1920 8 Title: A phase 1b study of the pharmacokinetics, safety and efficacy of orally administered [id number] in subjects with refractory chronic myeloid leukemia [...] same date [place] [address], [place] [address], monocytosis (5700), 6700 lymphocytes, 500 basophils and thrombocytopenia with platelets at 355414. Metaphase cytogenetics showed presence of t(9;22) in [...] trilineage hematopoiesis, decreased iron stores. Cytogenetics showed 46,XY,t(9;22)(q34;q11.2)[3]/46,XY[17] , consistent with failure to achieve CCyR. BCR-ABL [...] and consented for the clinical trial - [facility] 1920 20-998 Title: A phase 1b study of the pharmacokinetics, safety and efficacy of orally administered [id number] in subjects with refractory chronic myeloid leukemia [...] motor strength. Psychiatric: Memory, short term & bosom presser intact; no disturbance in sleep pattern and [...] > 10 years Current medication: Reviewed from [facility] and integrated in assessment and plan. Social History: He is . 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 He does not smoke cigarettes and has [...] CBC with differential reviewed from [facility] and integrated in assessment and plan. William Howell MD PhD MPH Associate Staff Hematologic Oncology and Blood Disorders Pager [phone] Date of service: 10/30/2022 documented in this encounter [facility] 10-30-2022 Nurse Note Additional intake questions: [...] or Resource Center documented in this encounter [facility] 10-16-2022 Note ------ Attestation signed by Angus Key MD at 10/16/2022 9:00 PM I personally saw and examined the patient on the same date of service as resident/fellow Haile Gonzáles. I discussed the findings and therapeutic plan with the resident/fellow Haile Gonzáles. I agree with the documentation, except for any edits/updates below. Teaching Physician's Revisions: Angus Key ------ Subjective Patient ID: Derrell Avitia is a [...] be an additional personal documentation from me. [facility] 10-15-2022 Instructions Kylee Dalal APRN.DOMINIC - 10/15/2022 2:06 PM EDT Plan Adjust: [...] in 3 months documented in this encounter [facility] 10-15-2022 History of Present illness Narrative Endocrinology Follow Up PCP: Buffy Chung [facility] History of Present Illness Derrell Aracelis Avitia JR is a 52 [...] dose. Medical Supplies and DME - Insulin Tynan-Syringes and Admin Supplies omega-3 acid ethyl esters (LOVAZA) 1 gram capsule Take 2 capsules by mouth twice daily. Antihyperlipidemic - [place]-3 Fatty Acid Type Physical Activity: Sedentary Diet: [...] Desk Reference: National Heart, Lung, and Blood English. National Institutes of Health. 2001: NIH Publication No. . HDL Cholesterol Date Value Ref Range Status 05/13/2022 38 (L) >39 mg/dL Final Comment: 40-59 mg/dL, Acceptable >59 mg/dL, High: Negative risk factor for coronary heart disease <40 mg/dL, Low: Positive risk factor for coronary heart disease Reference: 1. National Cholesterol Education Program ATP III Guideline At-A-Glance Quick Desk Reference: National Heart, Lung, and Blood English. National Institutes of Health. 2001: NIH Publication [...] Desk Reference: National Heart, Lung, and Blood English. National Institutes of Health. 2001: NIH Publication [...] This patient has microalbuminuria and is on BERT-I or ARB. 5. 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 (imatinib, dasatinib, nilotinib, bosutinib and ponatinib) Current Treatment - On a clinical trial - ACTG 1920 20-998 Title: A phase 1b study of the pharmacokinetics, safety and efficacy of orally administered ASS0841 in subjects with refractory chronic myeloid leukemia [...] He started the CML clinical trial - [facility] 1920 20-998 Title: A phase 1b study of the pharmacokinetics, safety and efficacy of orally administered OLP2853 in subjects with refractory chronic myeloid leukemia [...] same [place] [address], [place] [address], monocytosis (5700), 6700 lymphocytes, 500 basophils and thrombocytopenia with platelets at 903168. Metaphase cytogenetics showed presence of t(9;22) in [...] He [facility] A Randomized, Open-label, Phase [...] trilineage hematopoiesis, decreased iron stores. Cytogenetics showed 46,XY,t(9;22)(q34;q11.2)[3]/46,XY[17] , consistent with failure to achieve CCyR. BCR-ABL [...] pharmacokinetics, safety and efficacy of orally administered [id number] in subjects with refractory chronic myeloid leukemia [...] motor strength. Psychiatric: Memory, short term & chcf intact; no disturbance in sleep pattern and [...] years Current medication: Reviewed from [facility] and integrated in assessment and plan. Social History: He is . 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 He does not smoke cigarettes and has [...] CBC with differential reviewed from [facility] and integrated in assessment and plan. William Howell MD PhD MPH Associate Staff Hematologic Oncology and Blood Disorders Pager [phone] Date of service: 08/05/2022 Additional intake questions: Has the patient had fever, nausea, vomiting, diarrhea, constipation, fatigue for > 1 week? No Does the patient have a decreased appetite? No Does patient want to see a Concrete Rubber? No (yes to any of above refer patient to schedulers for dietitian appointment) ) Does patient have any new or increased numbness or tingling of extremities? No Is patient interested in fertility information? No Does patient need any prescription refills? No Does patient have an advanced directive in place? No, Patient referred to Resource Center documented in this encounter [facility] 08-15-2022 Miscellaneous Notes Spoke to Pt [...] for this procedure: low risk. Reference from [facility] Cable Braider: [email or web address] STAFF SIGNATURE: Jonathan Brasher MD DATE: August [...] CONTACT INFORMATION: Best way to reach patient [phone] SCHEDULING: Date: 10/28/2022 (Specific requests must be [...] (If the imaging was obtained outside the [facility] system, PLEASE upload for review prior to approval.) Note to all persons requesting biopsies: All biopsy requests will be scheduled as quickly as possible, based on the clinical urgency, availability of appointment times, the need to hold anti-thrombolytic therapy (aspirin and other blood thinners) and the patient s schedule, including the need for an available front end driver. If a percutaneous biopsy or drainage is not felt to be safe or an alternative method for establishing a diagnosis is possible, this will be discussed directly with the requesting physician. documented in this encounter [facility] 08-05-2022 History of Present illness Narrative Summary: ACTG 1920/20-998 Cycle 27 day 28 visit ACTG 1920 20-8 A phase 1b study of the pharmacokinetics, safety and efficacy of orally administered [id number] in subjects with refractory chronic myeloid leukemia [...] pain to left hand. Pt was prescribed Hartland but he never got it filled. He [...] Prior to 03/2012 L4 and L5 infusion [place] ANESTH,KNEE JOINT; NOS right Prior to 03/2012Prior [...] 03/2016 Bosutinib 03/2016 - 05/02/2017 [facility] 2915 15-875 trial of Ponatinib 05/21/2017 - [...] 14 units sq at dinner 05/2022 Diabetes Hartland 5/325 mg 1 tab PO x 1 [...] treat: no. Outcome:resolved. Constipation Grade 1 Unrelated Startdate:06/22/20.Resolved:06/23/2020. Drugs used to treat: no. Outcome: resolved. Hypoalbuminemia Grade 1 Unrelated Startdate:06/22/20.Resolved:07/17/2020. Drugs used to treat: no. Outcome: resolved. Platelet count decreased Grade 1 Possibly related Startdate:07/13/20.Resolved:07/26/2020. Drugs used to treat: no. Outcome: resolved. Headache Grade 1 Possibly related Startdate:07/10/2020.Resolved:08/14/2020. Drugs used to treat:yes. Outcome: resolved. Lipase [...] HQP on 08/06/2022 every other day. Lot# [id number] Patient aware next appointment is 10/30/2022 and he reports he has [facility] for appointments. Patient presented today to participate [...] nurse's contact information and after hours fellows environmental technical officer. Patient understands that this participation is voluntary and that he may withdraw at any time during the trial. ОЛЬГА Cabrera, RN documented in this encounter [facility] 07-30-2022 History of Present illness Narrative Images from the original note were not included. 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 Support System: How often does someone help [...] 10:13 AM PAGER: documented in this encounter [facility] 07-26-2022 History of Present illness Narrative IRB# [id number] /[facility]# ARIA [id number] : Study Description A Randomized, Open-label, Phase 2 Trial of Ponatinib in Patients with Resistant Chronic Phase Chronic Myeloid Leukemia to Characterize the Efficacy and Safety of a Range of Doses Derrell Avitia JR [id number] Survival/Automated Cutting Machine Operator Follow Up Call Automated Cutting Machine Operator Follow Up performed every 12 Weeks +- 2 weeks Chart Review for survival performed Raheem Santos, Research Coordinator . Patient was last seen in clinic on 07/15/2022 by Clare Dalal APRN.NETWORK INTELLIGENCE ANALYST. Next survival f/u due 10/07/2022. Raheem Santos, Research Coordinator documented in this encounter [facility] 07-15-2022 Instructions Kylee Dalal APRN.NETWORK INTELLIGENCE ANALYST - 07/15/2022 4:05 PM EST Plan Continue: [...] in 3 months documented in this encounter [facility] 07-15-2022 History of Present illness Narrative [...] Dosage Pharm Subclass flash glucose scanning reader ([employer] MARY ANN 2 READER) Check glucose 4 [...] dose. Medical Supplies and DME - Insulin Tynan-Syringes and Admin Supplies meloxicam (MOBIC) 7.5 mg tablet meloxicam 7.5 mg tablet NSAID Analgesics (DE SOUZA Non-Specific) - Oxicam Derivatives omega-3 acid ethyl esters (LOVAZA) 1 gram capsule Take 2 capsules by mouth twice daily. Antihyperlipidemic - [place]-3 Fatty Acid Type Physical Activity: Sedentary Diet: [...] - 1.7 ng/dL Final Impression/Recommendations IMPRESSION Derrell Hsu Sadi ESCOBEDO is a 51 year old here for [...] Desk Reference: National Heart, Lung, and Blood English. National Institutes of Health. 2001: NIH Publication No. . HDL Cholesterol Date Value Ref Range Status 05/13/2022 38 (L) >39 mg/dL Final Comment: 40-59 mg/dL, Acceptable >59 mg/dL, High: Negative risk factor for coronary heart disease <40 mg/dL, Low: Positive risk factor for coronary heart disease Reference: 1. National Cholesterol Education Program ATP III Guideline At-A-Glance Quick Desk Reference: National Heart, Lung, and Blood English. National Institutes of Health. 2001: NIH Publication [...] Desk Reference: National Heart, Lung, and Blood English. National Institutes of Health. 2001: [facility] Publication No. 01-3305. -- This [...] has microalbuminuria and is not currently on BERT-I or ARB. -- Unclear patient's BP medication [...] time of the patient encounter Kylee Dalal APRN.NETWORK INTELLIGENCE ANALYST (Signed electronically to expedite mailing) documented in this encounter [facility] 05-07-2022 Miscellaneous Notes Sensor placed at medical front desk specialist. Patient notified Patient states he does not have Freestyle mary ann sensor. He is requesting call back to be advised if ENDO has sample freestyle sensor device patient can use until next sensor can be covered by pt insurance. Please advise. Ph.[phone] documented in this encounter [facility] 03-19-2022 Instructions Kylee Dalal APRN.DOMINIC - 03/19/2022 1:06 PM EDT Plan Continue [...] in 3 months documented in this encounter [facility] 03-19-2022 History of Present illness Narrative Endocrinology Initial Diabetes Assessment Derrell Avitia JR is here for a consultation regarding: DM Type 2 My final recommendations will be communicated back to the requesting physician by way of shared Medical record or letter to requesting physician via US mail. PCP is MD Aman Bradford MD ([facility]) [address] [place] [address] History of Present Illness Derrell Avitia JR [...] dose. Medical Supplies and DME - Insulin Tynan-Syringes and Admin Supplies meloxicam (MOBIC) 7.5 mg tablet meloxicam 7.5 mg tablet NSAID Analgesics (DE SOUZA Non-Specific) - Oxicam Derivatives omega-3 acid ethyl esters (LOVAZA) 1 gram capsule Take 2 capsules by mouth twice daily. Antihyperlipidemic - [place]-3 Fatty Acid Type Physical Activity: Sedentary Diet: [...] Desk Reference: National Heart, Lung, and Blood English. National Institutes of Health. 2001: [facility] Publication No. 01-3305. HDL Cholesterol Date Value Ref Range Status 02/18/2022 36 (L) >39 mg/dL Final Comment: 40-59 mg/dL, Acceptable >59 mg/dL, High: Negative risk factor for coronary heart disease <40 mg/dL, Low: Positive risk factor for coronary heart disease Reference: 1. National Cholesterol Education Program ATP III Guideline At-A-Glance Quick Desk Reference: National Heart, Lung, and Blood English. National Institutes of Health. 2001: [facility] Publication No. -3305. LDL Cholesterol Date Value Ref Range Status [...] Desk Reference: National Heart, Lung, and Blood English. National Institutes of Health. 2001: [facility] Publication No. -3305. 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 Metaphase cytogenetics showed presence of t(9;22) in [...] trilineage hematopoiesis, decreased iron stores. Cytogenetics showed 46,XY,t(9;22)(q34;q11.2)[3]/46,XY[17] , consistent with failure to achieve CCyR. BCR-ABL [...] and consented for the clinical trial - [facility] 1920 20-998 Title: A phase 1b study of the pharmacokinetics, safety and efficacy of orally administered [id number] in subjects with refractory chronic myeloid leukemia [...] motor strength. Psychiatric: Memory, short term & chcf intact; no disturbance in sleep pattern and [...] > 10 years Current medication: Reviewed from [facility] and integrated in assessment and plan. Social History: He is . 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 He does not smoke cigarettes and has [...] CBC with differential reviewed from [facility] and integrated in assessment and plan. William Howell MD PhD MPH Associate Staff Hematologic Oncology and Blood Disorders Pager [phone] Date of service: 02/18/2022 documented in this encounter [facility] 02-19-2022 History of Present illness Narrative [facility] 1920 20-998 A phase 1b study of the pharmacokinetics, safety and efficacy of orally administered [id number] in subjects with refractory chronic myeloid leukemia [...] appt next week for his right knee. Special Needs Teacher appt will be requested again for the patient to be seen in [place]. Patient in agreement with the plan of [...] Prior to 03/2012 L4 and L5 infusion [place] ANESTH,KNEE JOINT; NOS right Prior to 03/2012Prior [...] 03/2016 Bosutinib 03/2016 - 05/02/2017 [facility] 2915 15-875 trial of Ponatinib 05/21/2017 - [...] treat: no. Outcome:resolved. Constipation Grade 1 Unrelated Startdate:06/22/20.Resolved:06/23/2020. Drugs used to treat: no. Outcome: resolved. Hypoalbuminemia Grade 1 Unrelated Startdate:06/22/20.Resolved:07/17/2020. Drugs used to treat: no. Outcome: resolved. Platelet count decreased Grade 1 Possibly related Startdate:07/13/20.Resolved:07/26/2020. Drugs used to treat: no. Outcome: resolved. Headache Grade 1 Possibly related Startdate:07/10/2020.Resolved:08/14/2020. Drugs used to treat:yes. Outcome: resolved. Lipase [...] HQP on 02/19/2022 every other day. Lot# [id number] Patient presented today to participate on the [...] nurse's contact information and after hours fellows environmental technical officer. Patient understands that this participation is voluntary and that he may withdraw at any time during the trial. documented in this encounter [facility] 02-18-2022 Nurse Note Additional intake questions: Has the patient had fever, nausea, vomiting, diarrhea, constipation, fatigue for > 1 week? Yes, constipation (day of last BM 02/17/2022) and fatigue Does the patient have a decreased appetite? No Does patient want to see a Concrete Rubber? No (yes to any of above refer patient to schedulers for dietitian appointment) ) Does patient have any new or increased numbness or tingling of extremities? No Is patient interested in fertility information? No Does patient need any prescription refills? No Does patient have an advanced directive in place? No, Patient referred to [facility] documented in this encounter [facility] 01-17-2022 Miscellaneous Notes Spoke to pt and scheduled biopsy for 05/16/22. Order pending RADIOLOGIST REQUEST / APPROVAL FORM STAFF RADIOLOGIST:Dr Froy Hernandez MD PROCEDURE TO BE DONE UNDER: CT PROCEDURE REQUESTED: Aspiration PROCEDURE: Approved TIME SLOT NEEDED: 1 Hour Pre-procedure labs: CBC: not needed INR: not needed COVID: not needed SIR Bleeding risk category for this procedure: Low risk. Reference from [facility] Cable Braider: [email or web address] STAFF SIGNATURE: Yenifer Cox MD DATE: January [...] 2022 Time: 4:34 PM PATIENT CONTACT INFORMATION: [phone] SCHEDULING: Date: May 16, 2022 (Specific requests [...] (If the imaging was obtained outside the [facility] system, PLEASE upload for review prior to approval.) Note to all persons requesting biopsies: All biopsy requests will be scheduled as quickly as possible, based on the clinical urgency, availability of appointment times, the need to hold anti-thrombolytic therapy (aspirin and other blood thinners) and the patient s schedule, including the need for an available front end driver. If a percutaneous biopsy or drainage is not felt to be safe or an alternative method for establishing a diagnosis is possible, this will be discussed directly with the requesting physician. 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 (imatinib, dasatinib, nilotinib, bosutinib and ponatinib) Current Treatment - On a clinical trial - [facility] 1920 20-998 Title: A phase 1b study of the pharmacokinetics, safety and efficacy of orally administered [id number] in subjects with refractory chronic myeloid leukemia [...] the CML clinical trial - [facility] 1920 20-817 Title: A phase 1b study of the pharmacokinetics, safety and efficacy of orally administered [id number] in subjects with refractory chronic myeloid leukemia [...] same [place] [address], [place] [address], monocytosis (5700), 6700 lymphocytes, 500 basophils and thrombocytopenia with platelets at 176791. Metaphase cytogenetics showed presence of t(9;22) in [...] [facility] A Randomized, Open-label, Phase [...] trilineage hematopoiesis, decreased iron stores. Cytogenetics showed 46,XY,t(9;22)(q34;q11.2)[3]/46,XY[17] , consistent with failure to achieve CCyR. BCR-ABL [...] and consented for the clinical trial - [facility] 1920 20-998 Title: A phase 1b study of the pharmacokinetics, safety and efficacy of orally administered [id number] in subjects with refractory chronic myeloid leukemia [...] motor strength. Psychiatric: Memory, short term & chcf intact; no disturbance in sleep pattern and [...] years Current medication: Reviewed from [facility] and integrated in assessment and plan. 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 He does not smoke cigarettes and has [...] CBC with differential reviewed from [facility] and integrated in assessment and plan. William Howell MD PhD MPH Associate Staff Hematologic Oncology and Blood Disorders Pager [phone] Date of service: 11/26/2021 documented in this encounter [facility] 11-30-2021 Miscellaneous Notes Called patient to let him know that wants him to get labs done at [facility]. Patient will have BCR/ABL p210 done. Patient verbalized understanding. documented in this encounter [facility] 11-26-2021 History of Present illness Narrative [facility] 1925 91-615 A phase 1b study of the pharmacokinetics, safety and efficacy of orally administered [id number] in subjects with refractory chronic myeloid leukemia [...] floaters in both eyes (eye exam 05/05) 764393 Active no medication or treatment Diabetes 12/2019 Active controlled with medication Rash 11/2019 Active uncontrolled,medication to start 05/29/2020 PAST SURGICAL HISTORY Procedure Laterality Date BACK SURGERY HX Prior to 03/2012 L4 and L5 infusion [place] ANESTH,KNEE JOINT; NOS right Prior to 03/2012Prior [...] 12/2014 -- 03/2016 Bosutinib 03/201605/02/2017 [facility] 2915 15-875 trial of Ponatinib 05/21/2017 - [...] treat: no. Outcome:resolved. Constipation Grade 1 Unrelated Startdate:06/22/20.Resolved:06/23/2020. Drugs used to treat: no. Outcome: resolved. Hypoalbuminemia Grade 1 Unrelated Startdate:06/22/20.Resolved:07/17/2020. Drugs used to treat: no. Outcome: resolved. Platelet count decreased Grade 1 Possibly related Startdate:07/13/20.Resolved:07/26/2020. Drugs used to treat: no. Outcome: resolved. Headache Grade 1 Possibly related Startdate:07/10/2020.Resolved:08/14/2020. Drugs used to treat:yes. Outcome: resolved. Lipase [...] HQP on 11/27/2021 every other day. Lot# [id number] Patient presented today to participate on the [...] nurse's contact information and after hours fellows environmental technical officer. Patient understands that this participation is voluntary and that he may withdraw at any time during the trial. documented in this encounter [facility] 11-26-2021 Nurse Note Additional intake questions: Has the patient had fever, nausea, vomiting, diarrhea, constipation, fatigue for > 1 week? No Does the patient have a decreased appetite? No Does patient want to see a Concrete Rubber? No (yes to any of above refer [...] Marcelino Finney LPN documented in this encounter [facility] 09-11-2021 Miscellaneous Notes Returned patients call about starting pravastatin while on the study ACTG 1919. Desean Fuller D consulted and pravastatin does not interact with the study drug. Patient aware that is aware and that advised for the patient not start taking lovaza. Patient verbalized understanding. documented in this encounter [facility] 09-07-2021 Miscellaneous Notes Spoke to pt [...] this procedure: low low risk. Reference from [facility] Cable Braider: [email or web address] STAFF SIGNATURE: Katie Ortiz DO DATE: September [...] CONTACT INFORMATION: Best way to reach patient [phone] SCHEDULING: Date: 11/29/2021 (Specific requests must be [...] (If the imaging was obtained outside the [facility] system, PLEASE upload for review prior to approval.) Note to all persons requesting biopsies: All biopsy requests will be scheduled as quickly as possible, based on the clinical urgency, availability of appointment times, the need to hold anti-thrombolytic therapy (aspirin and other blood thinners) and the patient s schedule, including the need for an available front end driver. If a percutaneous biopsy or drainage is not felt to be safe or an alternative method for establishing a diagnosis is possible, this will be discussed directly with the requesting physician. documented in this encounter [facility] 09-06-2021 Miscellaneous Notes Called and spoke [...] Patient verbalized understanding. documented in this encounter [facility] 09-03-2021 History of Present illness Narrative Clinical Trial Informed Re-Consent IRB# ACTG 1920 20-998 Title: A phase 1b study of the pharmacokinetics, safety and efficacy of orally administered [id number] in subjects with refractory chronic myeloid leukemia (CML) Patient seen today to obtain clinical trial informed re-consent per consent version 3.0 dated 08/15/2021 approval date. Clinical nut steamer reviewed the updated consent with patient and [...] willingly signed by patient and consenting clinical nut steamer. Patient given copy of signed informed consent. Time: 1140 documented in this encounter [facility] 09-03-2021 History of Present illness Narrative ACTG 1920 20-998 A phase 1b study of the pharmacokinetics, safety and efficacy of orally administered [id number] in subjects with refractory chronic myeloid leukemia [...] Prior to 03/2012 L4 and L5 infusion [place] ANESTH,KNEE JOINT; NOS right Prior to 03/2012Prior [...] 12/2014 -- 03/2016 Bosutinib 03/201605/02/2017 [facility] 2915 15-875 trial of Ponatinib 05/21/2017 - [...] treat: no. Outcome:resolved. Constipation Grade 1 Unrelated Startdate:06/22/20.Resolved:06/23/2020. Drugs used to treat: no. Outcome: resolved. Hypoalbuminemia Grade 1 Unrelated Startdate:06/22/20.Resolved:07/17/2020. Drugs used to treat: no. Outcome: resolved. Platelet count decreased Grade 1 Possibly related Startdate:07/13/20.Resolved:07/26/2020. Drugs used to treat: no. Outcome: resolved. Headache Grade 1 Possibly related Startdate:07/10/2020.Resolved:08/14/2020. Drugs used to treat:yes. Outcome: resolved. Lipase [...] 30 mg of HQP on 09/04/2021 Lot# [id number] Patient presented today to participate on the [...] nurse's contact information and after hours fellows environmental technical officer. Patient understands that this participation is voluntary and that he may withdraw at any time during the trial. documented in this encounter [facility] Evaluation note Diagnosis CML (chronic myeloid [...] [facility] information availableA[facility] Work Phone: Evaluation note* Diagnosis CML [...] leukemia, without mention of having achieved remission Exam for clinical research Examination of participant in clinical trial CML (chronic myeloid leukemia) (HCC) Chronic myeloid leukemia, without mention of having achieved remission [facility] Diagnosis Right shoulder pain, unspecified chronicity CML (chronic myeloid leukemia) (HCC) Chronic myeloid [...] hyperglycemia, with long-term current use of insulin (CMS/HCC)- Primary Primary hypertension (CMS/HCC) Unspecified essential hypertension Obesity (BMI 30-39.9) Screening for prostate cancer- Primary Special screening for malignant neoplasm of prostate Type 2 diabetes mellitus with hyperglycemia, with long-term current use of insulin (CMS/HCC) Gastroesophageal reflux disease, unspecified whether esophagitis present Primary hypertension (CMS/HCC) Unspecified essential hypertension Mixed hyperlipidemia (CMS/HCC) Mixed hyperlipidemia Hypertrophic cardiomyopathy (CMS/HCC) Other primary cardiomyopathies Chronic myeloid leukemia, BCR/ABL-positive, 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) Other hypertrophic cardiomyopathy (I42.2) Other hypertrophic cardiomyopathy Localized swelling on left hand- Primary Obesity (BMI 30-39.9) Type 2 diabetes mellitus with hyperglycemia, with long-term current use of insulin (CMS/HCC) GENET (obstructive sleep apnea)- Primary Obstructive sleep apnea (adult) (pediatric) Primary hypertension (CMS/HCC) Unspecified essential hypertension Diabetic polyneuropathy associated with type 2 diabetes mellitus (CMS/HCC) Hypertrophic cardiomyopathy (CMS/HCC) Other primary cardiomyopathies Type 2 diabetes mellitus with hyperglycemia, with long-term current use of insulin (CMS/HCC) Obesity (BMI 30-39.9) Chronic myeloid leukemia (CMS/HCC) Chronic myeloid leukemia, without mention of having achieved remission Colon cancer screening Special screening for malignant neoplasms, colon Type 2 diabetes mellitus with hyperglycemia, with long-term current use of insulin (CMS/HCC)- Primary Morbid (severe) obesity due to excess calories (CMS/HCC) Obstructive sleep apnea (adult) (pediatric) Body mass index (BMI) 37.0-37.9, adult Primary hypertension (CMS/HCC) Unspecified essential hypertension Acute pain of right shoulder- Primary History of arthroscopy of right shoulder Numbness Disturbance of skin sensation [facility] Type 2 diabetes mellitus with microalbuminuria, with long-term current use of insulin ([facility])- Primary Primary hypertension Unspecified essential hypertension Mixed hyperlipidemia [facility] Diagnosis Type 2 diabetes mellitus with hyperglycemia, with long-term current use of insulin (CMS/HCC)- Primary Primary hypertension (CMS/HCC) Unspecified essential hypertension Obesity (BMI 30-39.9) Screening for prostate cancer- Primary Special screening for malignant neoplasm of prostate Type 2 diabetes mellitus with hyperglycemia, with long-term current use of insulin (CMS/HCC) Gastroesophageal reflux disease, unspecified whether esophagitis present Primary hypertension (CMS/HCC) Unspecified essential hypertension Mixed hyperlipidemia (CMS/HCC) Mixed hyperlipidemia Hypertrophic cardiomyopathy (CMS/HCC) Other primary cardiomyopathies Chronic myeloid leukemia, BCR/ABL-positive, 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) Other hypertrophic cardiomyopathy (I42.2) Other hypertrophic cardiomyopathy Localized swelling on left hand- Primary Obesity (BMI 30-39.9) Type 2 diabetes mellitus with hyperglycemia, with long-term current use of insulin (CMS/HCC) GENET (obstructive sleep apnea)- Primary Obstructive sleep apnea (adult) (pediatric) Primary hypertension (CMS/HCC) Unspecified essential hypertension Diabetic polyneuropathy associated with type 2 diabetes mellitus (CMS/HCC) Hypertrophic cardiomyopathy (CMS/HCC) Other primary cardiomyopathies Type 2 diabetes mellitus with hyperglycemia, with long-term current use of insulin (CMS/HCC) Obesity (BMI 30-39.9) Chronic myeloid leukemia (CMS/HCC) Chronic myeloid leukemia, without mention of having achieved remission Colon cancer screening Special screening for malignant neoplasms, colon Type 2 diabetes mellitus with hyperglycemia, with long-term current use of insulin (CMS/HCC)- Primary Morbid (severe) obesity due to excess calories (CMS/HCC) Obstructive sleep apnea (adult) (pediatric) Body mass index (BMI) 37.0-37.9, adult Primary hypertension (CMS/HCC) Unspecified essential hypertension Type 2 diabetes mellitus with hyperglycemia, with long-term current use of insulin (CMS/HCC)- Primary 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/[facility]) Essential (primary) hypertension (CMS/HCC) Unspecified essential hypertension Morbid (severe) obesity due to excess calories (CMS/HCC) Chronic myeloid leukemia (CMS/HCC) Chronic myeloid leukemia, without mention of having achieved remission Primary hypertension (CMS/HCC) Unspecified essential hypertension Mixed hyperlipidemia ([facility]) Mixed hyperlipidemia Bilateral hand pain documented in this encounter [facility]* Diagnosis CML (chronic myelocytic leukemia) (HCC)- Primary Chronic myeloid leukemia, without mention of having achieved remission [facility] Diagnosis Type 2 diabetes mellitus with hyperglycemia, with long-term current use of insulin ([facility]/HCC) documented in this encounter [facility] HealthcareEvaluation note* Diagnosis Type 2 diabetes mellitus with hyperglycemia, with long-term current use of insulin ([facility]/HCC) documented in this encounter [facility] HealthcareEvaluation note* Diagnosis S/P right rotator cuff repair- Primary Paresthesias in right hand Disturbance of skin sensation documented in this encounter [facility] HealthcareEvaluation note* Diagnosis Carpal tunnel syndrome on right- Primary Carpal tunnel syndrome Paresthesias in right hand Disturbance of skin sensation Arm weakness Other musculoskeletal symptoms referable to limbs Numbness Disturbance of skin sensation Arm pain, right Pain in soft tissues of limb Ulnar neuropathy of right upper extremity documented in this encounter [facility] HealthcareEvaluation note* Diagnosis Status post arthroscopy of right shoulder- Primary Morbid (severe) obesity due to excess calories (CMS/HCC) Obstructive sleep apnea (adult) (pediatric) Body mass index (BMI) 37.0-37.9, adult documented in this encounter [facility] HealthcareEvaluation note* Diagnosis Morbid (severe) obesity due to excess calories (CMS/HCC) Obstructive sleep apnea (adult) (pediatric) Body mass index (BMI) 37.0-37.9, adult Status post arthroscopy of right shoulder- Primary documented in this encounter [facility] HealthcareEvaluation note* Diagnosis Type 2 diabetes mellitus with hyperglycemia, with long-term current use of insulin (CMS/HCC)- Primary Morbid (severe) obesity due to excess calories (CMS/HCC) Obstructive sleep apnea (adult) (pediatric) Body mass index (BMI) 37.0-37.9, adult Primary hypertension (CMS/HCC) Unspecified essential hypertension documented in this encounter [facility] HealthcareEvaluation note* Diagnosis Type 2 diabetes mellitus with hyperglycemia, with long-term current use of insulin (CMS/HCC)- Primary Primary hypertension (CMS/HCC) Unspecified essential hypertension Obesity (BMI 30-39.9) Screening for prostate cancer- Primary Special screening for malignant neoplasm of prostate Type 2 diabetes mellitus with hyperglycemia, with long-term current use of insulin (CMS/HCC) Gastroesophageal reflux disease, unspecified whether esophagitis present Primary hypertension (CMS/HCC) Unspecified essential hypertension Mixed hyperlipidemia (CMS/HCC) Mixed hyperlipidemia Hypertrophic cardiomyopathy (CMS/HCC) Other primary cardiomyopathies Chronic myeloid leukemia, BCR/ABL-positive, 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) Other hypertrophic cardiomyopathy (I42.2) Other hypertrophic cardiomyopathy Localized swelling on left hand- Primary Obesity (BMI 30-39.9) Type 2 diabetes mellitus with hyperglycemia, with long-term current use of insulin (CMS/HCC) GENET (obstructive sleep apnea)- Primary Obstructive sleep apnea (adult) (pediatric) Primary hypertension (CMS/HCC) Unspecified essential hypertension Diabetic polyneuropathy associated with type 2 diabetes mellitus (CMS/HCC) Hypertrophic cardiomyopathy (CMS/HCC) Other primary cardiomyopathies Type 2 diabetes mellitus with hyperglycemia, with long-term current use of insulin (CMS/HCC) Obesity (BMI 30-39.9) Chronic myeloid leukemia (CMS/HCC) Chronic myeloid leukemia, without mention of having achieved remission Colon cancer screening Special screening for malignant neoplasms, colon Type 2 diabetes mellitus with hyperglycemia, with long-term current use of insulin (CMS/HCC)- Primary Morbid (severe) obesity due to excess calories (CMS/HCC) Obstructive sleep apnea (adult) (pediatric) Body mass index (BMI) 37.0-37.9, adult Primary hypertension (CMS/HCC) Unspecified essential hypertension Type 2 diabetes mellitus with hyperglycemia, with long-term current use of insulin (CMS/HCC)- Primary 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/HCC) Essential (primary) hypertension (CMS/HCC) Unspecified essential hypertension Morbid (severe) obesity due to excess calories (CMS/HCC) Chronic myeloid leukemia (CMS/HCC) Chronic myeloid leukemia, without mention of having achieved remission Primary hypertension (CMS/HCC) Unspecified essential hypertension Mixed hyperlipidemia (CMS/HCC) Mixed hyperlipidemia Bilateral hand pain Type 2 diabetes mellitus with hyperglycemia, with long-term current use of insulin (CMS/HCC)- Primary Obstructive sleep apnea (adult) (pediatric) Essential (primary) hypertension (CMS/HCC) Unspecified essential hypertension Hypertrophic cardiomyopathy (CMS/HCC) Other primary cardiomyopathies Morbid (severe) obesity due to excess calories (CMS/HCC) Chronic myeloid leukemia (CMS/HCC) Chronic myeloid leukemia, without mention of having achieved remission Mixed hyperlipidemia (CMS/HCC) Mixed hyperlipidemia Colon cancer screening Special screening for malignant neoplasms, colon [facility] Diagnosis CML (chronic myelocytic leukemia) (HCC)- Primary Chronic myeloid leukemia, without mention of having achieved remission [facility] Diagnosis CML (chronic myeloid leukemia) (HCC)- Primary Chronic myeloid leukemia, without mention of having achieved remission [facility] Diagnosis Type 2 diabetes mellitus with hyperglycemia, with long-term current use of insulin (CMS/HCC)- Primary Primary hypertension (CMS/HCC) Unspecified essential hypertension Obesity (BMI 30-39.9) Screening for prostate cancer- Primary Special screening for malignant neoplasm of prostate Type 2 diabetes mellitus with hyperglycemia, with long-term current use of insulin (CMS/HCC) Gastroesophageal reflux disease, unspecified whether esophagitis present Primary hypertension (CMS/HCC) Unspecified essential hypertension Mixed hyperlipidemia (CMS/HCC) Mixed hyperlipidemia Hypertrophic cardiomyopathy (CMS/HCC) Other primary cardiomyopathies Chronic myeloid leukemia, BCR/ABL-positive, 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) Other hypertrophic cardiomyopathy (I42.2) Other hypertrophic cardiomyopathy Localized swelling on left hand- Primary Obesity (BMI 30-39.9) Type 2 diabetes mellitus with hyperglycemia, with long-term current use of insulin (CMS/HCC) GENET (obstructive sleep apnea)- Primary Obstructive sleep apnea (adult) (pediatric) Primary hypertension (CMS/HCC) Unspecified essential hypertension Diabetic polyneuropathy associated with type 2 diabetes mellitus (CMS/HCC) Hypertrophic cardiomyopathy (CMS/HCC) Other primary cardiomyopathies Type 2 diabetes mellitus with hyperglycemia, with long-term current use of insulin (CMS/HCC) Obesity (BMI 30-39.9) Chronic myeloid leukemia (CMS/HCC) Chronic myeloid leukemia, without mention of having achieved remission Colon cancer screening Special screening for malignant neoplasms, colon Type 2 diabetes mellitus with hyperglycemia, with long-term current use of insulin (CMS/HCC)- Primary Morbid (severe) obesity due to excess calories (CMS/HCC) Obstructive sleep apnea (adult) (pediatric) Body mass index (BMI) 37.0-37.9, adult Primary hypertension (CMS/HCC) Unspecified essential hypertension Type 2 diabetes mellitus with hyperglycemia, with long-term current use of insulin (CMS/HCC)- Primary 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/HCC) Essential (primary) hypertension (CMS/HCC) Unspecified essential hypertension Morbid (severe) obesity due to excess calories (CMS/HCC) Chronic myeloid leukemia (CMS/HCC) Chronic myeloid leukemia, without mention of having achieved remission Primary hypertension (CMS/HCC) Unspecified essential hypertension Mixed hyperlipidemia (CMS/HCC) Mixed hyperlipidemia Bilateral hand pain Type 2 diabetes mellitus with hyperglycemia, with long-term current use of insulin (CMS/HCC)- Primary Obstructive sleep apnea (adult) (pediatric) Essential (primary) hypertension (CMS/HCC) Unspecified essential hypertension Hypertrophic cardiomyopathy (CMS/HCC) Other primary cardiomyopathies Morbid (severe) obesity due to excess calories (CMS/HCC) Chronic myeloid leukemia (CMS/HCC) Chronic myeloid leukemia, without mention of having achieved remission Mixed hyperlipidemia (CMS/HCC) Mixed hyperlipidemia Colon cancer screening Special screening for malignant neoplasms, colon Sprain of left shoulder, initial encounter Tear of left supraspinatus tendon Bicipital tendinitis of left shoulder documented [facility] Diagnosis Type 2 diabetes mellitus with hyperglycemia, with long-term current use of insulin (CMS/HCC)- Primary Primary hypertension (CMS/HCC) Unspecified essential hypertension Obesity (BMI 30-39.9) Screening for prostate cancer- Primary Special screening for malignant neoplasm of prostate Type 2 diabetes mellitus with hyperglycemia, with long-term current use of insulin (CMS/[facility]) Gastroesophageal reflux disease, unspecified whether esophagitis present Primary hypertension (CMS/HCC) Unspecified essential hypertension Mixed hyperlipidemia (CMS/HCC) Mixed hyperlipidemia Hypertrophic cardiomyopathy (CMS/HCC) Other primary cardiomyopathies Chronic myeloid leukemia, BCR/ABL-positive, 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) Other hypertrophic cardiomyopathy (I42.2) Other hypertrophic cardiomyopathy Localized swelling on left hand- Primary Obesity (BMI 30-39.9) Type 2 diabetes mellitus with hyperglycemia, with long-term current use of insulin (CMS/HCC) GENET (obstructive sleep apnea)- Primary Obstructive sleep apnea (adult) (pediatric) Primary hypertension (CMS/HCC) Unspecified essential hypertension Diabetic polyneuropathy associated with type 2 diabetes mellitus (CMS/HCC) Hypertrophic cardiomyopathy (CMS/HCC) Other primary cardiomyopathies Type 2 diabetes mellitus with hyperglycemia, with long-term current use of insulin (CMS/HCC) Obesity (BMI 30-39.9) Chronic myeloid leukemia (CMS/HCC) Chronic myeloid leukemia, without mention of having achieved remission Colon cancer screening Special screening for malignant neoplasms, colon Type 2 diabetes mellitus with hyperglycemia, with long-term current use of insulin (CMS/HCC)- Primary Morbid (severe) obesity due to excess calories (CMS/HCC) Obstructive sleep apnea (adult) (pediatric) Body mass index (BMI) 37.0-37.9, adult Primary hypertension (CMS/HCC) Unspecified essential hypertension Type 2 diabetes mellitus with hyperglycemia, with long-term current use of insulin (CMS/HCC)- Primary 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/HCC) Essential (primary) hypertension (CMS/HCC) Unspecified essential hypertension Morbid (severe) obesity due to excess calories (CMS/HCC) Chronic myeloid leukemia (CMS/HCC) Chronic myeloid leukemia, without mention of having achieved remission Primary hypertension (CMS/HCC) Unspecified essential hypertension Mixed hyperlipidemia (CMS/HCC) Mixed hyperlipidemia Bilateral hand pain Type 2 diabetes mellitus with hyperglycemia, with long-term current use of insulin (CMS/HCC)- Primary Obstructive sleep apnea (adult) (pediatric) Essential (primary) hypertension (CMS/HCC) Unspecified essential hypertension Hypertrophic cardiomyopathy (CMS/HCC) Other primary cardiomyopathies Morbid (severe) obesity due to excess calories (CMS/HCC) Chronic myeloid leukemia (CMS/HCC) Chronic myeloid leukemia, without mention of having achieved remission Mixed hyperlipidemia (CMS/HCC) Mixed hyperlipidemia Colon cancer screening Special screening for malignant neoplasms, colon Acute pain of right shoulder- Primary History of arthroscopy of right shoulder [facility] Diagnosis CML (chronic myeloid leukemia) (HCC)- Primary Chronic myeloid leukemia, without mention of having achieved remission CML (chronic myeloid leukemia) (HCC) Chronic myeloid leukemia, without mention of having achieved remission [facility] Diagnosis Encounter for screening colonoscopy- Primary Family history of colon cancer in father Screen for colon cancer Special screening for malignant neoplasms, colon [facility] Diagnosis Palpitations- Primary Abnormal ECG Nonspecific abnormal electrocardiogram (ECG) (EKG) LVH (left ventricular hypertrophy) Cardiomegaly Hypertrophic cardiomyopathy (CMS-HCC) Other primary cardiomyopathies [facility] Diagnosis Primary hypertension- Primary Unspecified essential hypertension LVH (left ventricular hypertrophy) Cardiomegaly [facility] Diagnosis Encounter for other preprocedural examination [facility] Diagnosis Type 2 diabetes mellitus with hyperglycemia, with long-term current use of insulin (CMS/HCC)- Primary Primary hypertension (CMS/HCC) Unspecified essential hypertension Obesity (BMI 30-39.9) Screening for prostate cancer- Primary Special screening for malignant neoplasm of prostate Type 2 diabetes mellitus with hyperglycemia, with long-term current use of insulin (CMS/HCC) Gastroesophageal reflux disease, unspecified whether esophagitis present Primary hypertension (CMS/HCC) Unspecified essential hypertension Mixed hyperlipidemia (CMS/HCC) Mixed hyperlipidemia Hypertrophic cardiomyopathy (CMS/HCC) Other primary cardiomyopathies Chronic myeloid leukemia, BCR/ABL-positive, 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) Other hypertrophic cardiomyopathy (I42.2) Other hypertrophic cardiomyopathy Localized swelling on left hand- Primary Obesity (BMI 30-39.9) Type 2 diabetes mellitus with hyperglycemia, with long-term current use of insulin (CMS/HCC) GENET (obstructive sleep apnea)- Primary Obstructive sleep apnea (adult) (pediatric) Primary hypertension (CMS/HCC) Unspecified essential hypertension Diabetic polyneuropathy associated with type 2 diabetes mellitus (CMS/HCC) Hypertrophic cardiomyopathy (CMS/HCC) Other primary cardiomyopathies Type 2 diabetes mellitus with hyperglycemia, with long-term current use of insulin (CMS/HCC) Obesity (BMI 30-39.9) Chronic myeloid leukemia (CMS/HCC) Chronic myeloid leukemia, without mention of having achieved remission Colon cancer screening Special screening for malignant neoplasms, colon Type 2 diabetes mellitus with hyperglycemia, with long-term current use of insulin (CMS/HCC)- Primary Morbid (severe) obesity due to excess calories (CMS/HCC) Obstructive sleep apnea (adult) (pediatric) Body mass index (BMI) 37.0-37.9, adult Primary hypertension (CMS/HCC) Unspecified essential hypertension Type 2 diabetes mellitus with hyperglycemia, with long-term current use of insulin (CMS/HCC)- Primary 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/HCC) Essential (primary) hypertension (CMS/HCC) Unspecified essential hypertension Morbid (severe) obesity due to excess calories (CMS/HCC) Chronic myeloid leukemia (CMS/HCC) Chronic myeloid leukemia, without mention of having achieved remission Primary hypertension (CMS/HCC) Unspecified essential hypertension Mixed hyperlipidemia (CMS/HCC) Mixed hyperlipidemia Bilateral hand pain Type 2 diabetes mellitus with hyperglycemia, with long-term current use of insulin (CMS/HCC)- Primary Obstructive sleep apnea (adult) (pediatric) Essential (primary) hypertension (CMS/HCC) Unspecified essential hypertension Hypertrophic cardiomyopathy (CMS/HCC) Other primary cardiomyopathies Morbid (severe) obesity due to excess calories (CMS/HCC) Chronic myeloid leukemia (CMS/HCC) Chronic myeloid leukemia, without mention of having achieved remission Mixed hyperlipidemia (CMS/HCC) Mixed hyperlipidemia Colon cancer screening Special screening for malignant neoplasms, colon Pre-op examination- Primary Tear of left supraspinatus tendon [facility]* Diagnosis Type 2 diabetes mellitus with hyperglycemia, with long-term current use of insulin (CMS/HCC)- Primary Primary hypertension (CMS/HCC) Unspecified essential hypertension Obesity (BMI 30-39.9) Screening for prostate cancer- Primary Special screening for malignant neoplasm of prostate Type 2 diabetes mellitus with hyperglycemia, with long-term current use of insulin (CMS/HCC) Gastroesophageal reflux disease, unspecified whether esophagitis present Primary hypertension (CMS/HCC) Unspecified essential hypertension Mixed hyperlipidemia (CMS/HCC) Mixed hyperlipidemia Hypertrophic cardiomyopathy (CMS/HCC) Other primary cardiomyopathies Chronic myeloid leukemia, BCR/ABL-positive, 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) Other hypertrophic cardiomyopathy (I42.2) Other hypertrophic cardiomyopathy Localized swelling on left hand- Primary Obesity (BMI 30-39.9) Type 2 diabetes mellitus with hyperglycemia, with long-term current use of insulin (CMS/HCC) GENET (obstructive sleep apnea)- Primary Obstructive sleep apnea (adult) (pediatric) Primary hypertension (CMS/HCC) Unspecified essential hypertension Diabetic polyneuropathy associated with type 2 diabetes mellitus (CMS/HCC) Hypertrophic cardiomyopathy (CMS/HCC) Other primary cardiomyopathies Type 2 diabetes mellitus with hyperglycemia, with long-term current use of insulin (CMS/HCC) Obesity (BMI 30-39.9) Chronic myeloid leukemia (CMS/HCC) Chronic myeloid leukemia, without mention of having achieved remission Colon cancer screening Special screening for malignant neoplasms, colon Type 2 diabetes mellitus with hyperglycemia, with long-term current use of insulin (CMS/HCC)- Primary Morbid (severe) obesity due to excess calories (CMS/HCC) Obstructive sleep apnea (adult) (pediatric) Body mass index (BMI) 37.0-37.9, adult Primary hypertension (CMS/HCC) Unspecified essential hypertension Type 2 diabetes mellitus with hyperglycemia, with long-term current use of insulin (CMS/HCC)- Primary Immunodeficiency due to conditions classified elsewhere ([facility]/HCC) Essential (primary) hypertension (CMS/HCC) Unspecified essential hypertension Morbid (severe) obesity due to excess calories (CMS/HCC) Chronic myeloid leukemia (CMS/HCC) Chronic myeloid leukemia, without mention of having achieved remission Primary hypertension (CMS/HCC) Unspecified essential hypertension Mixed hyperlipidemia (CMS/HCC) Mixed hyperlipidemia Bilateral hand pain Type 2 diabetes mellitus with hyperglycemia, with long-term current use of insulin (CMS/HCC)- Primary Obstructive sleep apnea (adult) (pediatric) Essential (primary) hypertension (CMS/HCC) Unspecified essential hypertension Hypertrophic cardiomyopathy (CMS/HCC) Other primary cardiomyopathies Morbid (severe) obesity due to excess calories (CMS/HCC) Chronic myeloid leukemia (CMS/HCC) Chronic myeloid leukemia, without mention of having achieved remission Mixed hyperlipidemia (CMS/HCC) Mixed hyperlipidemia Colon cancer screening Special screening for malignant neoplasms, colon Type 2 diabetes mellitus with hyperglycemia, with long-term current use of insulin (CMS/HCC)- Primary Morbid (severe) obesity due to excess calories (CMS/HCC) Essential (primary) hypertension (CMS/HCC) Unspecified essential hypertension Body mass index (BMI) 36.0-36.9, adult 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) Chronic myeloid leukemia, BCR/ABL-positive, not having achieved remission (CMS/HCC) Type 2 diabetes mellitus with hyperglycemia (CMS/HCC) care home (current) use of insulin (CMS/HCC) Other hypertrophic cardiomyopathy (CMS/HCC) Other hypertrophic cardiomyopathy 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) Mixed hyperlipidemia (CMS/HCC) Mixed hyperlipidemia Obstructive sleep apnea (adult) (pediatric) Hypertrophic cardiomyopathy (CMS/HCC) Other primary cardiomyopathies LVH (left ventricular hypertrophy) Cardiomegaly Screening for prostate cancer Special screening for malignant neoplasm of prostate Primary hypertension (CMS/HCC) Unspecified essential hypertension [facility] Diagnosis Type 2 diabetes mellitus with hyperglycemia, with long-term current use of insulin (CMS/HCC)- Primary Primary hypertension (CMS/HCC) Unspecified essential hypertension Obesity (BMI 30-39.9) Screening for prostate cancer- Primary Special screening for malignant neoplasm of prostate Type 2 diabetes mellitus with hyperglycemia, with long-term current use of insulin (CMS/HCC) Gastroesophageal reflux disease, unspecified whether esophagitis present Primary hypertension (CMS/HCC) Unspecified essential hypertension Mixed hyperlipidemia (CMS/HCC) Mixed hyperlipidemia Hypertrophic cardiomyopathy (CMS/HCC) Other primary cardiomyopathies Chronic myeloid leukemia, BCR/ABL-positive, 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) Other hypertrophic cardiomyopathy (I42.2) Other hypertrophic cardiomyopathy Localized swelling on left hand- Primary Obesity (BMI 30-39.9) Type 2 diabetes mellitus with hyperglycemia, with long-term current use of insulin (CMS/HCC) GENET (obstructive sleep apnea)- Primary Obstructive sleep apnea (adult) (pediatric) Primary hypertension (CMS/HCC) Unspecified essential hypertension Diabetic polyneuropathy associated with type 2 diabetes mellitus (CMS/HCC) Hypertrophic cardiomyopathy (CMS/HCC) Other primary cardiomyopathies Type 2 diabetes mellitus with hyperglycemia, with long-term current use of insulin (CMS/HCC) Obesity (BMI 30-39.9) Chronic myeloid leukemia (CMS/HCC) Chronic myeloid leukemia, without mention of having achieved remission Colon cancer screening Special screening for malignant neoplasms, colon Type 2 diabetes mellitus with hyperglycemia, with long-term current use of insulin (CMS/HCC)- Primary Morbid (severe) obesity due to excess calories (CMS/HCC) Obstructive sleep apnea (adult) (pediatric) Body mass index (BMI) 37.0-37.9, adult Primary hypertension (CMS/HCC) Unspecified essential hypertension Type 2 diabetes mellitus with hyperglycemia, with long-term current use of insulin (CMS/HCC)- Primary 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/HCC) Essential (primary) hypertension (CMS/HCC) Unspecified essential hypertension Morbid (severe) obesity due to excess calories (CMS/HCC) Chronic myeloid leukemia (CMS/HCC) Chronic myeloid leukemia, without mention of having achieved remission Primary hypertension (CMS/HCC) Unspecified essential hypertension Mixed hyperlipidemia (CMS/HCC) Mixed hyperlipidemia Bilateral hand pain Type 2 diabetes mellitus with hyperglycemia, with long-term current use of insulin (CMS/HCC)- Primary Obstructive sleep apnea (adult) (pediatric) Essential (primary) hypertension (CMS/HCC) Unspecified essential hypertension Hypertrophic cardiomyopathy (CMS/HCC) Other primary cardiomyopathies Morbid (severe) obesity due to excess calories (CMS/HCC) Chronic myeloid leukemia (CMS/HCC) Chronic myeloid leukemia, without mention of having achieved remission Mixed hyperlipidemia (CMS/HCC) Mixed hyperlipidemia Colon cancer screening Special screening for malignant neoplasms, colon Type 2 diabetes mellitus with hyperglycemia, with long-term current use of insulin (CMS/HCC)- Primary Morbid (severe) obesity due to excess calories (CMS/HCC) Essential (primary) hypertension (CMS/HCC) Unspecified essential hypertension Body mass index (BMI) 36.0-36.9, adult 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) Chronic myeloid leukemia, BCR/ABL-positive, not having achieved remission (CMS/HCC) Type 2 diabetes mellitus with hyperglycemia (CMS/HCC) care home (current) use of insulin (CMS/HCC) Other hypertrophic cardiomyopathy (CMS/HCC) Other hypertrophic cardiomyopathy 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) Mixed hyperlipidemia (CMS/HCC) Mixed hyperlipidemia Obstructive sleep apnea (adult) (pediatric) Hypertrophic cardiomyopathy (CMS/HCC) Other primary cardiomyopathies LVH (left ventricular hypertrophy) Cardiomegaly Screening for prostate cancer Special screening for malignant neoplasm of prostate Primary hypertension (CMS/HCC) Unspecified essential hypertension Type 2 diabetes mellitus with hyperglycemia, with long-term current use of insulin (CMS/HCC) documented in this encounter [facility] HealthcareInstructionsNot on filedocumented in this encounterProMemorial [facility] SystemInstructionsNot on filedocumented in this encounterProMemorial [facility] SystemInstructionsNot on filedocumented in this encounterProMemorial [facility] SystemInstructionsNot on filedocumented in this encounterNorwalk [facility] System Reason for referral (narrative)* Outpatient Procedure (Routine) - Pending Review Specialty Diagnoses / Procedures Referred By Contac t Referred To [facility] Diagnoses CML (chronic myeloid leukemia) (HCC) Procedures ECHO ECHO TTHRC R-T 2D W/WOM-MODE COMPL SPEC&[place]R [place] [address] [place] [address] [facility] [address] [place] [address] Referral ID Status Reason Start Date Expiration Date Visits Requested Visits Authorized [id number] Pending Review Auto-Generat ed Referral 09/10/2021 09/10/2022 1 1 * Outpatient Procedure (Routine) - Pending Review Specialty Diagnoses / Procedures Referred By Contac t Referred To [facility] Diagnoses CML (chronic myeloid leukemia) (HCC) Procedures ECG COMPLETE ECG ROUTINE ECG W/LEAST 12 LDS W/I&R William [place] PhD [address] [place] [id number] [facility] [address] [place] [address] Referral ID Status Reason Start Date Expiration Date Visits Requested Visits Authorized [id number] Pending Review Auto-Generat ed Referral 09/10/2021 09/10/2022 1 1 [facility] for referral (narrative)* Outpatient Procedure (Routine) - Authorized Specialty Diagnoses / Procedures Referred By Contac t Referred To Contact [facility] Diagnoses CML (chronic myeloid leukemia) (HCC) Procedures ECG COMPLETE ECG ROUTINE ECG W/LEAST 12 LDS W/I&R [place] [address] [place] [address] [facility] [address] [place] [address] Referral ID Status Reason Start Date Expiration Date Visits Requested Visits Authorized [id number] Authorized Auto-Generat ed Referral 11/27/2021 11/26/2022 1 1 * Outpatient Procedure (Routine) - Authorized Specialty Diagnoses / Procedures Referred By Contac t Referred To Contact [facility] Diagnoses CML (chronic myeloid leukemia) (HCC) Procedures ECHO ECHO TTHRC R-T 2D W/WOM-MODE COMPL SPEC&COLR D William Howell MD, PhD [id number] [place] [address] [facility] [address] [address] Referral ID Status Reason Start Date Expiration Date Visits Requested Visits Authorized [id number] Authorized Auto-Generat ed Referral 11/27/2021 11/26/2022 1 1 [facility] for referral (narrative)* Outpatient Procedure (Routine) - Pending Review Specialty Diagnoses / Procedures Referred By Contac t Referred To Contact [facility] Diagnoses CML (chronic myeloid leukemia) (HCC) Procedures ECG COMPLETE ECG ROUTINE ECG W/LEAST 12 LDS W/I&R William Howell MD, PhD [address] [place] [address] [facility] [address] [address] Referral ID Status Reason Start Date Expiration Date Visits Requested Visits Authorized [id number] Pending Review Auto-Generat ed Referral 12/04/2021 12/03/2022 1 1 [facility] for referral (narrative)* Outpatient Procedure (Routine) - Pending Review Specialty Diagnoses / Procedures Referred By Contac t Referred To Contact [facility] Diagnoses CML (chronic myeloid leukemia) (HCC) Procedures ECHO ECHO TTHRC R-T 2D W/WOM-MODE COMPL SPEC&COLWilliam [place] [address] [place] [address] [facility] [address] [address] Referral ID Status Reason Start Date Expiration Date Visits Requested Visits Authorized [id number] Pending Review Auto-Generat ed Referral 01/14/2022 01/10/2023 1 1 [facility] for referral (narrative)* Outpatient Procedure (Routine) - Pending Review Specialty Diagnoses / Procedures Referred By Contac t Referred To Contact [facility] Diagnoses CML (chronic myelocytic leukemia) (HCC) Procedures ECHO ECHO TTHRC R-T 2D W/WOM-MODE COMPL SPEC&COLR [place] [address] [place] [address] [facility] [address] [address] Referral ID Status Reason Start Date Expiration Date Visits Requested Visits Authorized [id number] Pending Review Auto-Generat ed Referral 05/10/2023 1 1 [facility] for referral (narrative)* Outpatient Procedure (Routine) - Pending Review Specialty Diagnoses / Procedures Referred By Contac t Referred To [facility] Diagnoses CML (chronic myeloid leukemia) (HCC) Procedures ECHO ECHO TTHRC R-T 2D W/WOM-MODE COMPL SPEC&COLR [place] [address] [place] [address] [facility] [address] [address] Referral ID Status Reason Start Date Expiration Date Visits Requested Visits Authorized [id number] Pending Review Auto-Generat ed Referral 12/05/2022 12/04/2023 1 1 [facility] for referral (narrative)* Outpatient Procedure (Routine) - Pending Review Specialty Diagnoses / Procedures Referred By Contac t Referred To Contact [facility] Diagnoses Chronic myeloid leukemia (HCC) Procedures ECHO ECHO TTHRC R-T 2D W/WOM-MODE COMPL SPEC&COLR [place] [address] [place] [id number] [facility] [address] [address] Referral ID Status Reason Start Date Expiration Date Visits Requested Visits Authorized [id number] Pending Review Auto-Generat ed Referral 01/23/2023 01/22/2024 1 1 * Outpatient Procedure (Routine) - Pending Review Specialty Diagnoses / Procedures Referred By Contac t Referred To Contact [facility] Diagnoses Chronic myeloid leukemia (HCC) Procedures ECG COMPLETE ECG ROUTINE ECG W/LEAST 12 LDS W/I&R [place] [address] [place] [id number] [facility] [employer] [place] [address] Referral ID Status Reason Start Date Expiration Date Visits Requested Visits Authorized [id number] Pending Review Auto-Generat ed Referral 04/16/2023 01/22/2024 1 1 * Outpatient Procedure (Routine) - Pending Review Specialty Diagnoses / Procedures Referred By Contac t Referred To Contact [facility] Diagnoses Chronic myeloid leukemia (HCC) Procedures ECG COMPLETE ECG ROUTINE ECG W/LEAST 12 LDS W/I&[place] [address] [place] [address] [facility] [address] [address] Referral ID Status Reason Start Date Expiration Date Visits Requested Visits Authorized [id number] Pending Review Auto-Generat ed Referral 04/16/2023 01/22/2024 1 1 * Outpatient Procedure (Routine) - Pending Review Specialty Diagnoses / Procedures Referred By Contac t Referred To Contact [facility] Diagnoses Chronic myeloid leukemia (HCC) Procedures ECG COMPLETE ECG ROUTINE ECG W/LEAST 12 LDS W/I&[place] [address] [place] [address] [address] Referral ID Status Reason Start Date Expiration Date Visits Requested Visits Authorized [id number] Pending Review Auto-Generat ed Referral 04/16/2023 01/22/2024 1 1 [facility] for referral (narrative)* Outpatient Procedure (Routine) - Pending Review Specialty Diagnoses / Procedures Referred By Contac t Referred To Contact [facility] Diagnoses Chronic myeloid leukemia (HCC) Procedures ECG COMPLETE ECG ROUTINE ECG W/LEAST 12 LDS W/I&[place] [address] [place] [address] [address] Referral ID Status Reason Start Date Expiration Date Visits Requested Visits Authorized [id number] Pending Review Auto-Generat ed Referral 12/24/2023 08/19/2024 1 1 * Outpatient Procedure (Routine) - Pending Review Specialty Diagnoses / Procedures Referred By Contac t Referred To Contact [facility] Diagnoses Chronic myeloid leukemia (HCC) Procedures ECG COMPLETE ECG ROUTINE ECG W/LEAST 12 LDS W/I&R William Howell MD, PhD [id number] [place] [address] [facility] [address] [address] Referral ID Status Reason Start Date Expiration Date Visits Requested Visits Authorized [id number] Pending Review Auto-Generat ed Referral 12/24/2023 08/19/2024 1 1 * Outpatient Procedure (Routine) - Pending Review Specialty Diagnoses / Procedures Referred By Contac t Referred To Contact [facility] Diagnoses Chronic myeloid leukemia (HCC) Procedures ECG COMPLETE ECG ROUTINE ECG W/LEAST 12 LDS W/I&R William Howell MD, PhD [address] [place] [address] [facility] [address] [address] Referral ID Status Reason Start Date Expiration Date Visits Requested Visits Authorized [id number] Pending Review Auto-Generat ed Referral 12/24/2023 08/19/2024 1 1 * Outpatient Procedure (Routine) - Pending Review Specialty Diagnoses / Procedures Referred By Contac t Referred To Contact [facility] Diagnoses Chronic myeloid leukemia (HCC) Procedures ECHO ECHO TTHRC R-T 2D W/WOM-MODE COMPL SPEC&COLR D William Howell MD, PhD [address] [place] [address] [facility] [address] [address] Referral ID Status Reason Start Date Expiration Date Visits Requested Visits Authorized [id number] Pending Review Auto-Generat ed Referral 12/24/2023 08/19/2024 1 1 [facility] for referral (narrative)* Outpatient Procedure (Routine) - New Request Specialty Diagnoses / Procedures Referred By Contac t Referred To [facility] Diagnoses Chronic myeloid leukemia (HCC) Procedures ECHO ECHO TTHRC R-T 2D W/WOM-MODE COMPL SPEC&COLR D William Howell MD, PhD [id number] [place], [place] [id number] [address] [address] Referral ID Status Reason Start Date Expiration Date Visits Requested Visits Authorized [id number] New Request Auto-Generat ed Referral 03/17/2024 12/15/2024 1 1 * Outpatient Procedure (Routine) - New Request Specialty Diagnoses / Procedures Referred By Contac t Referred To [facility] Diagnoses Chronic myeloid leukemia (HCC) Procedures ECG COMPLETE ECG ROUTINE ECG W/LEAST 12 LDS W/I&R William Howell MD, PhD [address] [place] [address] [address] Referral ID Status Reason Start Date Expiration Date Visits Requested Visits Authorized [id number] New Request Auto-Generat ed Referral 03/17/2024 12/15/2024 1 1 * Outpatient Procedure (Routine) - New Request Specialty Diagnoses / Procedures Referred By Contac t Referred To [facility] Diagnoses Chronic myeloid leukemia (HCC) Procedures ECG COMPLETE ECG ROUTINE ECG W/LEAST 12 LDS W/I&R William Howell MD, PhD [address] [place] [address] [facility] [address] [place] [address] Referral ID Status Reason Start Date Expiration Date Visits Requested Visits Authorized [id number] New Request Auto-Generat ed Referral 03/17/2024 12/15/2024 1 1 * Outpatient Procedure (Routine) - New Request Specialty Diagnoses / Procedures Referred By Yuri t [facility] Diagnoses Chronic myeloid leukemia (HCC) Procedures ECG COMPLETE ECG ROUTINE ECG W/LEAST 12 LDS W/I&[place] [address] [place] [address] [facility] [address] [place] [address] Referral ID Status Reason Start Date Expiration Date Visits Requested Visits Authorized [id number] New Request Auto-Generat ed Referral 03/17/2024 12/15/2024 1 1 [facility] for referral (narrative)* Diagnostic Procedure Only (Routine) - Closed Specialty Diagnoses / Procedures Referred By Yuri metzger Referred To Contact [facility] Diagnoses Right shoulder pain, unspecified chronicity Procedures XR SHOULDER ORTHO 4V AP/TRUE AP/LAT/OUTLET RIGHT RADEX SHOULDER COMPLETE MINIMUM 2 VIEWS Loco Wynn PA-C [address] [place] [address] [place] [address] Referral ID Status Reason Start Date Expiration Date V isits Requested Visits Authorized [id number] Closed Auto-Generate d Referral 05/27/2023 06/24/2024 1 1 [facility] for referral (narrative)* Consultation (Routine) - Authorized Specialty Diagnoses / Procedures Referred By Yuri t Referred To Contact Physical Therapy Diagnoses Status post arthroscopy of right shoulder Procedures OK OFFICE/OUTPATIENT NEW HIGH MDM 60 MINUTES Jr. Rosa Kilpatrick DO [address] [place] [address] [facility] [address] [place] [address] Referral ID Status Reason Start Date Expiration Date Visits Requested Visits Authorized [id number] Authorized Consult and Treat 03/01/2024 08/28/2024 1 1 [facility] for visit Narrative* Outpatient Procedure (Routine) - Closed Specialty Diagnoses / Procedures Referred By Contac t Referred To Contact [facility] Diagnoses CML (chronic myeloid leukemia) (HCC) Procedures ECHO TTE W/DOPPLER, COMPLETE Connie Burns, WREATH INSPECTOR.NETWORK INTELLIGENCE ANALYST [address] [place] [address] [facility] [address] [place] [address] Referral ID Status Reason Start Date Expiration Date V isits Requested Visits Authorized [id number] Closed Auto-Generate d Referral 06/06/2021 06/06/2022 1 1 [facility] for visit Narrative* Diagnostic Procedure Only (Routine) - Closed Specialty Diagnoses / Procedures Referred By Contac t Referred To Contact XR IMAGING Diagnoses Right shoulder pain, unspecified chronicity Procedures XR SHOULDER ORTHO 4V AP/TRUE AP/LAT/OUTLET RIGHT RADEX SHOULDER COMPLETE MINIMUM 2 VIEWS Loco Wynn PA-C [address] [place] [address] [place] [address] Referral ID Status Reason Start Date Expiration Date V isits Requested Visits Authorized [id number] Closed Auto-Generate d Referral 05/27/2023 06/24/2024 1 1 [facility] Medications Administered Section Inactive Administered Medications - up to 3 most recent administrations Medication Order MAR Action Action Date Dose Rate Site INV [id number] 30 mg TABLET (IRB ACTG 1920/20-998) 30 [...] FoundDocuments on File Type Date Recorded Patient Customer Experience Manager Expl anation Advance Directive(s) 05/19/2021 11:26 AM Advance Directive(s) 12/21/2020 1:15 PM Advance Directive(s) 09/14/2020 4:15 PM Advance Directive(s) 04/28/2020 10:31 AM Advance Directive(s) 07/27/2019 2:14 PM Advance Directive(s) 04/21/2018 2:12 PM Advance Directive(s) 04/24/2017 9:30 AM Advance Directive(s) 03/15/2016 7:50 AM Advance Directive(s) 03/12/2016 11:21 AM Documents on File Type Date Recorded Patient Customer Experience Manager Expl anation Advance Directive(s) 05/19/2021 11:26 AM Advance Directive(s) 12/21/2020 1:15 PM Advance Directive(s) 09/14/2020 4:15 PM Advance Directive(s) 04/28/2020 10:31 AM Advance Directive(s) 07/27/2019 2:14 PM Advance Directive(s) 04/21/2018 2:12 PM Advance Directive(s) 04/24/2017 9:30 AM Advance Directive(s) 03/15/2016 7:50 AM Advance Directive(s) 03/12/2016 11:21 AM Documents on File Type Date Recorded Patient Customer Experience Manager Expl anation Advance Directive(s) 11/15/2021 2:15 PM Advance Directive(s) 05/19/2021 11:26 AM Advance Directive(s) 12/21/2020 1:15 PM Advance Directive(s) 09/14/2020 4:15 PM Advance Directive(s) 04/28/2020 10:31 AM Advance Directive(s) 07/27/2019 2:14 PM Advance Directive(s) 04/21/2018 2:12 PM Advance Directive(s) 04/24/2017 9:30 AM Advance Directive(s) 03/15/2016 7:50 AM Advance Directive(s) 03/12/2016 11:21 AM Documents on File Type Date Recorded Patient Customer Experience Manager Expl anation Advance Directive(s) 11/15/2021 2:15 PM [...] (HCC) Procedures CONSULT TO DIABETES EDUCATION OFFICE/OUTPATIENT [facility] MDM 60-74 MINUTES Kylee Dalal, WREATH INSPECTOR.NETWORK INTELLIGENCE ANALYST [address] [place] [address] Referral ID Status Reason Start Date Expiration Date Visits Requested Visits Authorized [id number] Authorized PCP Requested Referral 2 03/19/2023 1 1 Specialty Diagnoses / Procedures Referred By Contac t Referred To Contact Diagnoses Carpal tunnel syndrome on right Ulnar neuropathy of right upper extremity Procedures NVC 7-8 Nerves Clara Mantilla, DO [address] [place] [address] Referral ID Status Reason Start Date Expiration Date V isits Requested Visits Authorized [id number] Pending Review 02/26/2024 08/24/2024 1 1 Specialty Diagnoses / Procedures Referred By Contac t Referred To Contact Diagnoses Abnormal ECG LVH (left ventricular hypertrophy) Hypertrophic cardiomyopathy (CMS-HCC) Palpitations Procedures Holter monitor 24-48 hour Yan Durham MD [address] [place] [address] Referral ID Status Reason Start Date Expiration Date V isits Requested Visits Authorized [id number] Pending Review 06/30/2023 06/29/2024 1 1 Specialty Diagnoses / Procedures Referred By Contac t Referred To Contact Radiology Diagnoses Abnormal ECG LVH (left ventricular hypertrophy) Hypertrophic cardiomyopathy (CMS-HCC) Procedures MR cardiac for morphology with and without contrast Yan Durham MD [address] [place] [address] Referral ID Status Reason Start Date Expiration Date V isits Requested Visits Authorized [id number] Pending Review 06/30/2023 06/29/2024 1 1 Summary Purpose Family History No [...] or prosecute any alcohol or drug abuse patient.[facility] the event this information is protected by the Federal Confidentiality of Alcohol and Drug Abuse Patient Records regulations: The Federal rules restrict any use of the information to criminally investigate or prosecute any alcohol or drug abuse patient.[facility] the event this information is protected by the Federal Confidentiality of Alcohol and Drug Abuse Patient Records regulations: The Federal rules restrict any use of the information to criminally investigate or prosecute any alcohol or drug abuse patient.[facility] the event this information is protected by the Federal Confidentiality of Alcohol and Drug Abuse Patient Records regulations: The Federal rules restrict any use of the information to criminally investigate or prosecute any alcohol or drug abuse patient.[facility] the event this information is protected by the Federal Confidentiality of Alcohol and Drug Abuse Patient Records regulations: The Federal rules restrict any use of the information to criminally investigate or prosecute any alcohol or drug abuse patient.[facility] the event this information is protected by the Federal Confidentiality of Alcohol and Drug Abuse Patient Records regulations: The Federal rules restrict any use of the information to criminally investigate or prosecute any alcohol or drug abuse patient.[facility] the event this information is protected by the Federal Confidentiality of Alcohol and Drug Abuse Patient Records regulations: The Federal rules restrict any use of the information to criminally investigate or prosecute any alcohol or drug abuse patient.[facility] the event this information is protected by the Federal Confidentiality of Alcohol and Drug Abuse Patient Records regulations: The Federal rules restrict any use of the information to criminally investigate or prosecute any alcohol or drug abuse patient.[facility] the event this information is protected by the Federal Confidentiality of Alcohol and Drug Abuse Patient Records regulations: The Federal rules restrict any use of the information to criminally investigate or prosecute any alcohol or drug abuse patient.[facility] the event this information is protected by the Federal Confidentiality of Alcohol and Drug Abuse Patient Records regulations: The Federal rules restrict any use of the information to criminally investigate or prosecute any alcohol or drug abuse patient.[facility]In the event this information is protected by the Federal Confidentiality of Alcohol and Drug Abuse Patient Records regulations: The Federal rules restrict any use of the information to criminally investigate or prosecute any alcohol or drug abuse patient.[facility]In the event this information is protected by the Federal Confidentiality of Alcohol and Drug Abuse Patient Records regulations: The Federal rules restrict any use of the information to criminally investigate or prosecute any alcohol or drug abuse patient.[facility]In the event this information is protected by the Federal Confidentiality of Alcohol and Drug Abuse Patient Records regulations: The Federal rules restrict any use of the information to criminally investigate or prosecute any alcohol or drug abuse patient.[facility] the event this information is protected by the Federal Confidentiality of Alcohol and Drug Abuse Patient Records regulations: The Federal rules restrict any use of the information to criminally investigate or prosecute any alcohol or drug abuse patient.[facility] the event this information is protected by the Federal Confidentiality of Alcohol and Drug Abuse Patient Records regulations: The Federal rules restrict any use of the information to criminally investigate or prosecute any alcohol or drug abuse patient.[facility]In the event this information is protected by the Federal Confidentiality of Alcohol and Drug Abuse Patient Records regulations: The Federal rules restrict any use of the information to criminally investigate or prosecute any alcohol or drug abuse patient.[facility] HospitalIn the event this information is protected by the Federal Confidentiality of Alcohol and Drug Abuse Patient Records regulations: The Federal rules restrict any use of the information to criminally investigate or prosecute any alcohol or drug abuse patient.[facility] HospitalIn the event this information is protected by the Federal Confidentiality of Alcohol and Drug Abuse Patient Records regulations: The Federal rules restrict any use of the information to criminally investigate or prosecute any alcohol or drug abuse patient.[facility] HospitalIn the event this information is protected by the Federal Confidentiality of Alcohol and Drug Abuse Patient Records regulations: The Federal rules restrict any use of the information to criminally investigate or prosecute any alcohol or drug abuse patient.[facility] HospitalIn the event this information is protected by the Federal Confidentiality of Alcohol and Drug Abuse Patient Records regulations: The Federal rules restrict any use of the information to criminally investigate or prosecute any alcohol or drug abuse patient.[facility] the event this information is protected by the Federal Confidentiality of Alcohol and Drug Abuse Patient Records regulations: The Federal rules restrict any use of the information to criminally investigate or prosecute any alcohol or drug abuse patient.[facility] HospitalIn the event this information is protected by the Federal Confidentiality of Alcohol and Drug Abuse Patient Records regulations: The Federal rules restrict any use of the information to criminally investigate or prosecute any alcohol or drug abuse patient.[facility] HospitalIn the event this information is protected by the Federal Confidentiality of Alcohol and Drug Abuse Patient Records regulations: The Federal rules restrict any use of the information to criminally investigate or prosecute any alcohol or drug abuse patient.[facility] HospitalIn the event this information is protected by the Federal Confidentiality of Alcohol and Drug Abuse Patient Records regulations: The Federal rules restrict any use of the information to criminally investigate or prosecute any alcohol or drug abuse patient.[facility] HospitalIn the event this information is protected by the Federal Confidentiality of Alcohol and Drug Abuse Patient Records regulations: The Federal rules restrict any use of the information to criminally investigate or prosecute any alcohol or drug abuse patient.[facility] HospitalIn the event this information is protected by the Federal Confidentiality of Alcohol and Drug Abuse Patient Records regulations: The Federal rules restrict any use of the information to criminally investigate or prosecute any alcohol or drug abuse patient.[facility] HospitalIn the event this information is protected by the Federal Confidentiality of Alcohol and Drug Abuse Patient Records regulations: The Federal rules restrict any use of the information to criminally investigate or prosecute any alcohol or drug abuse patient.[facility] HospitalIn the event this information is protected by the Federal Confidentiality of Alcohol and Drug Abuse Patient Records regulations: The Federal rules restrict any use of the information to criminally investigate or prosecute any alcohol or drug abuse patient.[facility] HospitalIn the event this information is protected by the Federal Confidentiality of Alcohol and Drug Abuse Patient Records regulations: The Federal rules restrict any use of the information to criminally investigate or prosecute any alcohol or drug abuse patient.[facility] HospitalIn the event this information is protected by the Federal Confidentiality of Alcohol and Drug Abuse Patient Records regulations: The Federal rules restrict any use of the information to criminally investigate or prosecute any alcohol or drug abuse patient.[facility] HospitalIn the event this information is protected by the Federal Confidentiality of Alcohol and Drug Abuse Patient Records regulations: The Federal rules restrict any use of the information to criminally investigate or prosecute any alcohol or drug abuse patient.[facility] HospitalIn the event this information is protected by the Federal Confidentiality of Alcohol and Drug Abuse Patient Records regulations: The Federal rules restrict any use of the information to criminally investigate or prosecute any alcohol or drug abuse patient.[facility] HospitalIn the event this information is protected by the Federal Confidentiality of Alcohol and Drug Abuse Patient Records regulations: The Federal rules restrict any use of the information to criminally investigate or prosecute any alcohol or drug abuse patient.[facility] HospitalIn the event this information is protected by the Federal Confidentiality of Alcohol and Drug Abuse Patient Records regulations: The Federal rules restrict any use of the information to criminally investigate or prosecute any alcohol or drug abuse patient.[facility] HospitalIn the event this information is protected by the Federal Confidentiality of Alcohol and Drug Abuse Patient Records regulations: The Federal rules restrict any use of the information to criminally investigate or prosecute any alcohol or drug abuse patient.[facility] HospitalIn the event this information is protected by the Federal Confidentiality of Alcohol and Drug Abuse Patient Records regulations: The Federal rules restrict any use of the information to criminally investigate or prosecute any alcohol or drug abuse patient.[facility] HospitalIn the event this information is protected by the Federal Confidentiality of Alcohol and Drug Abuse Patient Records regulations: The Federal rules restrict any use of the information to criminally investigate or prosecute any alcohol or drug abuse patient.[facility] HospitalIn the event this information is protected by the Federal Confidentiality of Alcohol and Drug Abuse Patient Records regulations: The Federal rules restrict any use of the information to criminally investigate or prosecute any alcohol or drug abuse patient.[facility] HospitalIn the event this information is protected by the Federal Confidentiality of Alcohol and Drug Abuse Patient Records regulations: The Federal rules restrict any use of the information to criminally investigate or prosecute any alcohol or drug abuse patient.[facility] HospitalIn the event this information is protected by the Federal Confidentiality of Alcohol and Drug Abuse Patient Records regulations: The Federal rules restrict any use of the information to criminally investigate or prosecute any alcohol or drug abuse patient.[facility] HospitalIn the event this information is protected by the Federal Confidentiality of Alcohol and Drug Abuse Patient Records regulations: The Federal rules restrict any use of the information to criminally investigate or prosecute any alcohol or drug abuse patient.[facility] HospitalIn the event this information is protected by the Federal Confidentiality of Alcohol and Drug Abuse Patient Records regulations: The Federal rules restrict any use of the information to criminally investigate or prosecute any alcohol or drug abuse patient.[facility] HospitalIn the event this information is protected by the Federal Confidentiality of Alcohol and Drug Abuse Patient Records regulations: The Federal rules restrict any use of the information to criminally investigate or prosecute any alcohol or drug abuse patient.[facility] HospitalIn the event this information is protected by the Federal Confidentiality of Alcohol and Drug Abuse Patient Records regulations: The Federal rules restrict any use of the information to criminally investigate or prosecute any alcohol or drug abuse patient.[facility] HospitalIn the event this information is protected by the Federal Confidentiality of Alcohol and Drug Abuse Patient Records regulations: The Federal rules restrict any use of the information to criminally investigate or prosecute any alcohol or drug abuse patient.[facility] HospitalIn the event this information is protected by the Federal Confidentiality of Alcohol and Drug Abuse Patient Records regulations: The Federal rules restrict any use of the information to criminally investigate or prosecute any alcohol or drug abuse patient.[facility] HospitalIn the event this information is protected by the Federal Confidentiality of Alcohol and Drug Abuse Patient Records regulations: The Federal rules restrict any use of the information to criminally investigate or prosecute any alcohol or drug abuse patient.[facility] HospitalIn the event this information is protected by the Federal Confidentiality of Alcohol and Drug Abuse Patient Records regulations: The Federal rules restrict any use of the information to criminally investigate or prosecute any alcohol or drug abuse patient.[facility] HospitalIn the event this information is protected by the Federal Confidentiality of Alcohol and Drug Abuse Patient Records regulations: The Federal rules restrict any use of the information to criminally investigate or prosecute any alcohol or drug abuse patient.[facility] HospitalIn the event this information is protected by the Federal Confidentiality of Alcohol and Drug Abuse Patient Records regulations: The Federal rules restrict any use of the information to criminally investigate or prosecute any alcohol or drug abuse patient.[facility] HospitalIn the event this information is protected by the Federal Confidentiality of Alcohol and Drug Abuse Patient Records regulations: The Federal rules restrict any use of the information to criminally investigate or prosecute any alcohol or drug abuse patient.[facility] HospitalIn the event this information is protected by the Federal Confidentiality of Alcohol and Drug Abuse Patient Records regulations: The Federal rules restrict any use of the information to criminally investigate or prosecute any alcohol or drug abuse patient.[facility] HospitalIn the event this information is protected by the Federal Confidentiality of Alcohol and Drug Abuse Patient Records regulations: The Federal rules restrict any use of the information to criminally investigate or prosecute any alcohol or drug abuse patient.[facility] HospitalIn the event this information is protected by the Federal Confidentiality of Alcohol and Drug Abuse Patient Records regulations: The Federal rules restrict any use of the information to criminally investigate or prosecute any alcohol or drug abuse patient.[facility] HospitalIn the event this information is protected by the Federal Confidentiality of Alcohol and Drug Abuse Patient Records regulations: The Federal rules restrict any use of the information to criminally investigate or prosecute any alcohol or drug abuse patient.[facility] HospitalIn the event this information is protected by the Federal Confidentiality of Alcohol and Drug Abuse Patient Records regulations: The Federal rules restrict any use of the information to criminally investigate or prosecute any alcohol or drug abuse patient.[facility] HospitalIn the event this information is protected by the Federal Confidentiality of Alcohol and Drug Abuse Patient Records regulations: The Federal rules restrict any use of the information to criminally investigate or prosecute any alcohol or drug abuse patient.[facility] HospitalIn the event this information is protected by the Federal Confidentiality of Alcohol and Drug Abuse Patient Records regulations: The Federal rules restrict any use of the information to criminally investigate or prosecute any alcohol or drug abuse patient.[facility] HospitalIn the event this information is protected by the Federal Confidentiality of Alcohol and Drug Abuse Patient Records regulations: The Federal rules restrict any use of the information to criminally investigate or prosecute any alcohol or drug abuse patient.[facility] HospitalIn the event this information is protected by the Federal Confidentiality of Alcohol and Drug Abuse Patient Records regulations: The Federal rules restrict any use of the information to criminally investigate or prosecute any alcohol or drug abuse patient.[facility] HospitalIn the event this information is protected by the Federal Confidentiality of Alcohol and Drug Abuse Patient Records regulations: The Federal rules restrict any use of the information to criminally investigate or prosecute any alcohol or drug abuse patient.[facility] HospitalIn the event this information is protected by the Federal Confidentiality of Alcohol and Drug Abuse Patient Records regulations: The Federal rules restrict any use of the information to criminally investigate or prosecute any alcohol or drug abuse patient.[facility] HospitalIn the event this information is protected by the Federal Confidentiality of Alcohol and Drug Abuse Patient Records regulations: The Federal rules restrict any use of the information to criminally investigate or prosecute any alcohol or drug abuse patient.[facility] HospitalIn the event this information is protected by the Federal Confidentiality of Alcohol and Drug Abuse Patient Records regulations: The Federal rules restrict any use of the information to criminally investigate or prosecute any alcohol or drug abuse patient.[facility] HospitalIn the event this information is protected by the Federal Confidentiality of Alcohol and Drug Abuse Patient Records regulations: The Federal rules restrict any use of the information to criminally investigate or prosecute any alcohol or drug abuse patient.[facility] HospitalIn the event this information is protected by the Federal Confidentiality of Alcohol and Drug Abuse Patient Records regulations: The Federal rules restrict any use of the information to criminally investigate or prosecute any alcohol or drug abuse patient.[facility] HospitalIn the event this information is protected by the Federal Confidentiality of Alcohol and Drug Abuse Patient Records regulations: The Federal rules restrict any use of the information to criminally investigate or prosecute any alcohol or drug abuse patient.[facility] HospitalIn the event this information is protected by the Federal Confidentiality of Alcohol and Drug Abuse Patient Records regulations: The Federal rules restrict any use of the information to criminally investigate or prosecute any alcohol or drug abuse patient.[facility] HospitalIn the event this information is protected by the Federal Confidentiality of Alcohol and Drug Abuse Patient Records regulations: The Federal rules restrict any use of the information to criminally investigate or prosecute any alcohol or drug abuse patient.[facility] HospitalIn the event this information is protected by the Federal Confidentiality of Alcohol and Drug Abuse Patient Records regulations: The Federal rules restrict any use of the information to criminally investigate or prosecute any alcohol or drug abuse patient.[facility] the event this information is protected by the Federal Confidentiality of Alcohol and Drug Abuse Patient Records regulations: The Federal rules restrict any use of the information to criminally investigate or prosecute any alcohol or drug abuse patient.[facility] HospitalIn the event this information is protected by the Federal Confidentiality of Alcohol and Drug Abuse Patient Records regulations: The Federal rules restrict any use of the information to criminally investigate or prosecute any alcohol or drug abuse patient.[facility] HospitalIn the event this information is protected by the Federal Confidentiality of Alcohol and Drug Abuse Patient Records regulations: The Federal rules restrict any use of the information to criminally investigate or prosecute any alcohol or drug abuse patient.[facility] HospitalIn the event this information is protected by the Federal Confidentiality of Alcohol and Drug Abuse Patient Records regulations: The Federal rules restrict any use of the information to criminally investigate or prosecute any alcohol or drug abuse patient.[facility] HospitalIn the event this information is protected by the Federal Confidentiality of Alcohol and Drug Abuse Patient Records regulations: The Federal rules restrict any use of the information to criminally investigate or prosecute any alcohol or drug abuse patient.[facility] HospitalIn the event this information is protected by the Federal Confidentiality of Alcohol and Drug Abuse Patient Records regulations: The Federal rules restrict any use of the information to criminally investigate or prosecute any alcohol or drug abuse patient.[facility] HospitalIn the event this information is protected by the Federal Confidentiality of Alcohol and Drug Abuse Patient Records regulations: The Federal rules restrict any use of the information to criminally investigate or prosecute any alcohol or drug abuse patient.[facility] HospitalIn the event this information is protected by the Federal Confidentiality of Alcohol and Drug Abuse Patient Records regulations: The Federal rules restrict any use of the information to criminally investigate or prosecute any alcohol or drug abuse patient.[facility] HospitalIn the event this information is protected by the Federal Confidentiality of Alcohol and Drug Abuse Patient Records regulations: The Federal rules restrict any use of the information to criminally investigate or prosecute any alcohol or drug abuse patient.[facility] HospitalIn the event this information is protected by the Federal Confidentiality of Alcohol and Drug Abuse Patient Records regulations: The Federal rules restrict any use of the information to criminally investigate or prosecute any alcohol or drug abuse patient.[facility] HospitalIn the event this information is protected by the Federal Confidentiality of Alcohol and Drug Abuse Patient Records regulations: The Federal rules restrict any use of the information to criminally investigate or prosecute any alcohol or drug abuse patient.[facility] HospitalIn the event this information is protected by the Federal Confidentiality of Alcohol and Drug Abuse Patient Records regulations: The Federal rules restrict any use of the information to criminally investigate or prosecute any alcohol or drug abuse patient.[facility] HospitalIn the event this information is protected by the Federal Confidentiality of Alcohol and Drug Abuse Patient Records regulations: The Federal rules restrict any use of the information to criminally investigate or prosecute any alcohol or drug abuse patient.[facility] HospitalIn the event this information is protected by the Federal Confidentiality of Alcohol and Drug Abuse Patient Records regulations: The Federal rules restrict any use of the information to criminally investigate or prosecute any alcohol or drug abuse patient.[facility] HospitalIn the event this information is protected by the Federal Confidentiality of Alcohol and Drug Abuse Patient Records regulations: The Federal rules restrict any use of the information to criminally investigate or prosecute any alcohol or drug abuse patient.[facility] HospitalIn the event this information is protected by the Federal Confidentiality of Alcohol and Drug Abuse Patient Records regulations: The Federal rules restrict any use of the information to criminally investigate or prosecute any alcohol or drug abuse patient.[facility] HospitalIn the event this information is protected by the Federal Confidentiality of Alcohol and Drug Abuse Patient Records regulations: The Federal rules restrict any use of the information to criminally investigate or prosecute any alcohol or drug abuse patient.[facility] HospitalIn the event this information is protected by the Federal Confidentiality of Alcohol and Drug Abuse Patient Records regulations: The Federal rules restrict any use of the information to criminally investigate or prosecute any alcohol or drug abuse patient.[facility]In the event this information is protected by the Federal Confidentiality of Alcohol and Drug Abuse Patient Records regulations: The Federal rules restrict any use of the information to criminally investigate or prosecute any alcohol or drug abuse patient.[facility]In the event this information is protected by the Federal Confidentiality of Alcohol and Drug Abuse Patient Records regulations: The Federal rules restrict any use of the information to criminally investigate or prosecute any alcohol or drug abuse patient.[facility] HospitalIn the event this information is protected by the Federal Confidentiality of Alcohol and Drug Abuse Patient Records regulations: The Federal rules restrict any use of the information to criminally investigate or prosecute any alcohol or drug abuse patient.[facility] HospitalIn the event this information is protected by the Federal Confidentiality of Alcohol and Drug Abuse Patient Records regulations: The Federal rules restrict any use of the information to criminally investigate or prosecute any alcohol or drug abuse patient.[facility] HospitalIn the event this information is protected by the Federal Confidentiality of Alcohol and Drug Abuse Patient Records regulations: The Federal rules restrict any use of the information to criminally investigate or prosecute any alcohol or drug abuse patient.[facility] HospitalIn the event this information is protected by the Federal Confidentiality of Alcohol and Drug Abuse Patient Records regulations: The Federal rules restrict any use of the information to criminally investigate or prosecute any alcohol or drug abuse patient.[facility] HospitalIn the event this information is protected by the Federal Confidentiality of Alcohol and Drug Abuse Patient Records regulations: The Federal rules restrict any use of the information to criminally investigate or prosecute any alcohol or drug abuse patient.[facility] HospitalIn the event this information is protected by the Federal Confidentiality of Alcohol and Drug Abuse Patient Records regulations: The Federal rules restrict any use of the information to criminally investigate or prosecute any alcohol or drug abuse patient.[facility] Reason for Visit (unrecogniz ed section and content) Reason Comments Research ACTG 1920 / IRB 20-9 98 cycle 18 day 28 Specialty Diagnoses / Procedures Referred By Contac t Referred To Contact HEMATOLOGY/ONCOLOGY Diagnoses study pt irb#[id number](actg 1920 c92.10 nct# date time per slip emma Procedures NURSE RESEARCH 2 [place] [address] [address] [id number] Emma Tuttle, RN [address] [place] [address] Referral ID Status Reason Start Date Expiration Date Visits Re quested Visits Authorized [id number] Closed 10/13/2020 12/12/2020 1 1 Reason Comments Research ACTG 192 / 20-998 c ycle 15 day 28 Reason Comments Research ACTG 192 / IRB 20- 98 reconsent Reason Comments Medication Problem Reason Comments Biopsy Request Reason Comments Patient Question Reason Comments Appointment Reason Comments Established Patient Specialty Diagnoses / Procedures [facility] Contact [facility]ematology/Oncology / HEMATOLOGY/ONCOLOGY Diagnoses Chronic myeloid leukemia, BCR/ABL-positive, not having achieved remission STUDY PT IRB# [id number] C92.10 DATE TIME PER SLIP EMMA NCT# Procedures OFFICE/OUTPATIENT ESTABLISHED MOD MDM 30-39 MIN EST PATIENT/[place] [address] [place] [address] [place] [address] [place] [address] Referral ID Status Reason Start Date Expiration Date Visits Re quested Visits Authorized [id number] Closed 11/26/2021 06/08/2022 1 1 Reason Comments Biopsy Request needed for 05/16/2022 Reason Comments Research ACTG 1920 / IRB 20-9 98 cycle 21 day 28 Specialty Diagnoses [...] ECHO PER SLIP William Cisse MD, PhD [id number] [place] [address] [address] [place] [address] [place] [address] Referral ID Status Reason Start Date Expiration Date Visits Requested Visits Authorized [id number] Authorized OON/Self Pay Override 02/18/2022 06/08/2022 99 99 Specialty Diagnoses / Procedures Referred By Contac t Referred To Contact Hematology/Oncology / HEMATOLOGY/ONCOLOGY Diagnoses CML (chronic myeloid leukemia) (HCC) STUDY PT IRB# 20-998 ACT 1920 C92.10 DATE TIME PER SLIP EMMA/EFRAÍN Procedures OFFICE/OUTPATIENT ESTABLISHED MOD MDM 30-39 MIN EST PATIENT/ASMT William Howell MD, PhD [id number] [place] [address] William Howell MD, PhD [address] [place] [address] Referral ID Status Reason Start Date Expiration Date Visits Re quested Visits Authorized [id number] Closed 02/18/2022 06/08/2022 1 1 Reason Comments New Patient Referred by Dr. Portillo hernandez Specialty Diagnoses / Procedures Referred By Contact Referred To Contact Endocrinology / INITIAL DEPT Diagnoses CML (chronic myeloid leukemia) (HCC) Procedures CONSULT TO ENDOCRINOLOGY OFFICE/OUTPATIENT NEW HIGH MDM 60-74 MINUTES OFFICE/OUTPATIENT NEW MODERATE MDM 45-59 MINUTES William Howell MD, PhD [address] [place], [place] [id number] Initial Department Referral ID Status Reason Start Date Expiration Date V isits Requested Visits Authorized [id number] Closed PCP Requested Referral 03/19/2022 06/08/2022 1 1 Reason Onset Date Comments Refill Request 05/13/2022 Reason Comments Diabetes Specialty Diagnoses / Procedures Referred By Contac t Referred To Contact Endocrinology / ENDOCRINOLOGY Diagnoses 3 months (around 06/19/2022 Procedures EST DAMON PATIENT Kylee Dalal, WREATH INSPECTOR.NETWORK INTELLIGENCE ANALYST [address] [place] [address] Kylee Dalal APRN.NETWORK INTELLIGENCE ANALYST [address] [place] [address] Referral ID Status Reason Start Date Expiration Date Visits Re quested Visits Authorized [id number] Closed 07/04/2022 06/08/2023 1 1 Reason Comments Research Study ARIA 2915/ACTG 0 Survival Follow-up Reason Comments Diabetes Self Management Education Specialty Diagnoses / Procedures Referred By Contac t Referred To Contact INITIAL DEPT Diagnoses Uncontrolled type 2 diabetes mellitus with hyperglycemia (HCC) Procedures CONSULT TO DIABETES EDUCATION OFFICE/OUTPATIENT NEW HIGH MDM 60-74 MINUTES MEDICAL NUTRITION ASSMT&IVNTJ INDIV EACH 15 MT OFFICE/OUTPATIENT NEW MODERATE MDM 45-59 MINUTES Kylee Dalal, WREATH INSPECTOR.NETWORK INTELLIGENCE ANALYST [address] [place] [address] Initial Department Referral ID Status Reason Start Date Expiration Date V isits Requested Visits Authorized [id number] Closed PCP Requested Referral 07/30/2022 06/08/2023 1 1 Reason Comments Research ACTG 1919/-998 Cyc le 27 day 28 visit Reason Comments Established Patient Follow-Up Specialty Diagnoses / Procedures Referred By Contac t Referred To Contact Hematology/Oncology / HEMATOLOGY/ONCOLOGY Diagnoses Chronic myeloid leukemia, BCR/ABL-positive, not having achieved remission STUDY PT IRB -8 ACTG 0 DX - C92.10 DATE , TIME Procedures OFFICE/OUTPATIENT ESTABLISHED MOD MDM 30-39 MIN EST [place] [address] [place] [address] [place] [address] [place] [address] Referral ID Status Reason Start Date Expiration Date Visits Re quested Visits Authorized [id number] Closed 08/05/2022 06/08/2023 1 1 Specialty Diagnoses / Procedures Referred By Contac t Referred To Contact Endocrinology / ENDOCRINOLOGY Diagnoses Follow-up exam Return in about 3 months (around 10/12/2022). Check out comments: Schedule with CDE Procedures OFFICE/OUTPATIENT ESTABLISHED MOD MDM 30-39 MIN EST DAMON PATIENT Self Kylee Dalal, WREATH INSPECTOR.NETWORK INTELLIGENCE ANALYST [address] [place] [address] Referral ID Status Reason Start Date Expiration Date Visits Re quested Visits Authorized [id number] Closed 10/15/2022 06/08/2023 1 1 Specialty Diagnoses / Procedures Referred By Contac t Referred To Contact Hematology/Oncology / HEMATOLOGY/ONCOLOGY Diagnoses Chronic myeloid leukemia, BCR/ABL-positive, not having achieved remission STUDY PT IRB 20-998/ACT 1920 DX - C92.10 DATE , TIME Reschedule per Emma Procedures OFFICE/OUTPATIENT ESTABLISHED MOD MDM 30-39 MIN EST PATIENT [place] [address] [place] [id number] [place] [address] [place] [address] Referral ID Status Reason Start Date Expiration Date Visits Re quested Visits Authorized [id number] Closed 10/30/2022 06/08/2023 1 1 Specialty Diagnoses / Procedures Referred By Contac t Referred To Contact Hematology/Oncology / HEMATOLOGY/ONCOLOGY Diagnoses CML (chronic myeloid leukemia) (HCC) STUDY PT IRB 20-998/ACTG 1920 DX - C92.10 DATE , TIME PER SLIP EMMA Procedures OFFICE/OUTPATIENT ESTABLISHED MOD MDM 30-39 MIN EST PATIENT William Howell MD, PhD [address] [place] [address] [place] [address] [place] [address] Referral ID Status Reason Start Date Expiration Date Visits Re quested Visits Authorized [id number] Closed 12/25/2022 06/08/2023 1 1 Reason Comments [...] having achieved remission STUDY PT IRB 20-998/ACTG 1919 DX - C92.10 DATE , TIME PER SLIP EMMA Procedures ECHO TTHRC R-T 2D W/WOM-MODE COMPL SPEC&COLR [place] [address] [place] [address] [facility] [address] [place] [address] Referral ID Status Reason Start Date Expiration Date Visits Re quested Visits Authorized [id number] Closed 04/16/2023 06/08/2023 1 1 Specialty Diagnoses / Procedures Referred By Contac t Referred To Contact Hematology/Oncology / HEMATOLOGY/ONCOLOGY Diagnoses Chronic myeloid leukemia, BCR/ABL-positive, not having achieved remission STUDY PT IRB 20-998/ACTG 0 DX - C92.10 DATE , TIME PER SLIP EMMA Procedures f/u per research study; ACTG 1919; IRB # 20-998 William Howell MD, PhD [address] [place] [address] [place] [address] [place] [address] Referral ID Status Reason Start Date Expiration Date Visits Requested Visits Authorized [id number] Pending Review OON/Self Pay Override 04/16/2023 10/13/2023 5 5 Specialty Diagnoses / Procedures Referred By Contac t Referred To Contact Hematology/Oncology / HEMATOLOGY/ONCOLOGY Diagnoses CML (chronic myeloid leukemia) (HCC) STUDY PT IRB 20-998/ACTG 1920 DX - C92.10 DATE , TIME PER SLIP EMMA JFL Procedures OFFICE/OUTPATIENT ESTABLISHED MOD MDM 30 MIN EST PATIENT William Howell MD, PhD [address] [place] [address] [place] [address] [place] [address] Referral ID Status Reason Start Date Expiration Date Visits Re quested Visits Authorized [id number] Closed 07/09/2023 06/08/2024 1 1 Reason Comments Follow Up Specialty Diagnoses / Procedures Referred By Yuri metzger Referred To Contact Endocrinology / ENDOCRINOLOGY Diagnoses Type 2 diabetes mellitus with hyperglycemia, with long-term current use of insulin ([facility]) follow up in person 4 months Procedures OFFICE/OUTPATIENT ESTABLISHED MOD MDM 30 MIN EST DAMON PATIENT Kylee Dalal, WREATH INSPECTOR.NETWORK INTELLIGENCE ANALYST [address] [place] [address] Kylee Dalal APRN.NETWORK INTELLIGENCE ANALYST [address] [place] [address] Referral ID Status Reason Start Date Expiration Date Visits Re quested Visits Authorized [id number] Closed 08/25/2023 06/08/2024 1 1 Reason Comments Research ACTG 1919 Cycle 42 D 28 Reason Comments Research ACTG 1919 c ycle 42 day 28 Reason Comments [...] MIN EST PATIENT William Howell MD, PhD [address] [place] [address] [place] [address] [place] [id number] Referral ID Status Reason Start Date Expiration Date Visits Re quested Visits Authorized [id number] Closed 10/01/2023 06/08/2024 1 1 Reason Onset Date Comments Refill Request 12/23/2023 Reason Comments Research ACTG 0 C45D28 Reason Comments Research ACTG 1919/-998 Cyc le 45 day 28 visit Reason Comments Results Specialty Diagnoses / Procedures Referred By Contac t Referred To Contact Hematology / HEMATOLOGY/ONCOLOGY Diagnoses STUDY PT IRB -/ACTG 1920 DX - C92.10 DATE , TIME PER SLIP EMMA JFL Procedures EKG EPIC William Howell MD, PhD [id number] [place] [address] [address] [place] [address] Referral ID Status Reason Start Date Expiration Date Visits Re quested Visits Authorized [id number] Closed 07/09/2023 06/08/2024 1 1 Specialty Diagnoses / Procedures Referred By Contac t Referred To Contact Hematology/Oncology / HEMATOLOGY/ONCOLOGY Diagnoses Research subject Chronic myeloid leukemia, BCR/ABL-positive, not having achieved remission STUDY PT IRB /ACTG 0 DX - C92.10 Procedures [facility] W/WOM-MODE COMPL SPEC&COLR D STUDY PATIENT OHNL2208/-8 DX C92.10 William Howell MD, PhD [address] [place] [address] [place] [address] [place] [id number] Referral ID Status Reason Start Date Expiration Date V isits Requested Visits Authorized [id number] Closed OON/Self Pay Override 03/16/2024 06/24/2025 30 30 Reason Comments Research ACTG 1920 C48D28 Specialty Diagnoses / Procedures Referred By Contac t Referred To Contact ADMITTING Diagnoses CML (chronic myeloid leukemia) (HCC) 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] Procedures DIAGNOSTIC BONE MARROW BIOPSIES DIAGNOSTIC BONE MARROW BIOPSY(IES) [facility] [address] [place] [address] Referral ID Status Reason Start Date Expiration Date Visits Re quested Visits Authorized [id number] 1 1 Reason Comments Pain Specialty Diagnoses / Procedures Referred By Contac t Referred To Contact Endocrinology / ENDOCRINOLOGY Diagnoses Rash CML (chronic myeloid leukemia) (HCC) 6 months (around 02/29/2024 Procedures OFFICE/OUTPATIENT ESTABLISHED MOD [facility] 30 MIN EST DAMON PATIENT Kylee Dalal, WREATH INSPECTOR.NETWORK INTELLIGENCE ANALYST [address] [place] [address] Kylee Dalal APRN.NETWORK INTELLIGENCE ANALYST [address] [place] [address] Referral ID Status Reason Start Date Expiration Date Visits Re quested Visits Authorized [id number] Closed 03/08/2024 06/08/2024 1 1 Specialty Diagnoses / Procedures Referred By Contac t Referred To Contact Hematology/Oncology / HEMATOLOGY/ONCOLOGY Diagnoses Chronic myeloid leukemia (HCC) ECHO HEART, LIMITED CHARGE TO RES STUDY PT IRB 20-998/ACTG 1920 DX - C92.10 DATE , TIME PER SLIP EMMA Procedures OFFICE/OUTPATIENT ESTABLISHED MOD MDM 30 MIN EST PATIENT William Howell MD, PhD [address] [place] [address] [place] [address] [place] [address] Referral ID Status Reason Start Date Expiration Date Visits Re quested Visits Authorized [id number] Closed 03/17/2024 06/08/2024 1 1 Reason Comments Med Change Request Reason Onset Date Comments Med Refill 02/10/2024 Specialty Diagnoses / Procedures Referred By Contac t Referred To Contact Neurology Diagnoses Paresthesias in right hand Arm weakness Numbness Arm pain, right Procedures EMG AND NERVE CONDUCTION STUDY Lars Belcher PA [address] [facility] [address] [place] [address] Shanel Jara MD [address] [place] [address] Referral ID Status Reason Start Date Expiration Date Visits Re quested Visits Authorized [id number] Closed 02/04/2024 08/02/2024 1 1 Reason Comments Pain Specialty Diagnoses / Procedures Referred By Contac t Referred To Contact HEMATOLOGY/ONCOLOGY Diagnoses STUDY PT IRB 20-998/ACTG 1920 DX - C92.10 DATE , TIME PER SLIP EMMA Procedures NURSE RESEARCH 2 William Howell MD, PhD [address] [place] [address] Emma Tuttle, RN [address] [place] [address] Referral ID Status Reason Start Date Expiration Date V isits Requested Visits Authorized [id number] Authorized 06/16/2024 06/08/2025 99 99 Reason Comments Research [id number] Cycle 51 D2 8 Specialty Diagnoses / Procedures Referred By Contac t Referred To Contact HEMATOLOGY/ONCOLOGY Diagnoses STUDY PT IRB 20-998/ACTG 1920 DX - C92.10 DATE , TIME PER SLIP EMMA Procedures NURSE RESEARCH 2 William Howell MD, PhD [address] [facility] [place] [address] Emma Tuttle, RN [address] [place] [address] Reason Comments Returning Patient's Call Reason Comments Colon Cancer Screening First colon Specialty Diagnoses / Procedures Referred By Contac t Referred To Contact General Surgery Diagnoses Colon cancer screening Procedures OK OFFICE OUTPATIENT VISIT 60-74 MINS HIGH MDM [id number] (SNOMED CT) - AMB REFERRAL TO GENERAL SURGERY Buffy Chung, WREATH INSPECTOR-NETWORK INTELLIGENCE ANALYST [address] [place] [address] Phone: tel: fax: Derrell Solis, [address] [place] [address] Phone: tel: fax: Referral ID Status Reason Start Date Expiration Date Visits Re quested Visits Authorized [id number] Closed 05/31/2024 11/27/2024 1 1 Reason Comments 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 - 3 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 - l /s [facility] - no testing,labs - sched w/pt Reason Comments Follow-up 09/24 LM to move to - [facility] - 3 mo ov - l/s RDG - cardiac MRI 06/30/23, 07/31/23, Holter 06/30/23 - sched w/pt Reason Onset Date Comments Requesting time off until surgery 07/21/2024 Reason Comments Pre-op Exam Reason Comments Diabetes Care Teams (unrecognized sec tion and content) Clinical Sales Consultant Relationship Specialty Start Date End Date Aman Pack [address] [place] [address] PCP - General [facility] 09/03/21 Emma Tuttle RN [address] [place] [address] Research Nurse Hematology/Oncology 06/05/20 [place] [address] [place] [address] Physician Hematology/Oncology 06/05/20 Clinical Sales Consultant Relationship Specialty Start Date End Date Aman Pack [address] [place] [address] PCP - [facility] 09/03/21 Emma Tuttle RN [address] [place] [address] Research Nurse Hematology/Oncology 06/05/20 [place] [address] [place] [address] Physician Hematology/Oncology 06/05/20 Clinical Sales Consultant Relationship Specialty Start Date End Date Aman Pack [address] [place] [address] PCP - General [facility] 09/03/21 Emma Tuttle RN [address] [place] [address] Research Nurse Hematology/Oncology 06/05/20 [place] [address] [place] [address] Physician Hematology/Oncology 06/05/20 Clinical Sales Consultant Relationship Specialty Start Date End Date Aman Pack [address] [place] [address] PCP - General Family Practice 09/03/21 Emma Tuttle, RN [address] [place] [address] Research Nurse Hematology/Oncology 06/05/20 [place] [address] [place] [address] Physician Hematology/Oncology 06/05/20 Clinical Sales Consultant Relationship Specialty Start Date End Date Aman Pack [address] [place] [address] PCP - General Family Practice 09/03/21 Emma Tuttle, RN [address] [place] [address] Research Nurse Hematology/Oncology 06/05/20 [place] [address] [place] [address] Physician Hematology/Oncology 06/05/20 Clinical Sales Consultant Relationship Specialty Start Date End Date Aman Pack Walter [address] [place] [address] PCP - General Family Practice 09/03/21 Emma Tuttle, RN [address] [place] [address] Research Nurse Hematology/Oncology 06/05/20 [place] [address] [place] [address] Physician Hematology/Oncology 06/05/20 Clinical Sales Consultant Relationship Specialty Start Date End Date Aman Pack [address] [place] [address] PCP - General Family Practice 09/03/21 Emma Tuttle, RN [address] [place] [address] Research Nurse Hematology/Oncology 06/05/20 [place] [address] [place] [address] Physician Hematology/Oncology 06/05/20 Clinical Sales Consultant Relationship Specialty Start Date End Date Aman Pack [address] [place] [address] PCP - [facility] 09/03/21 Emma Tuttle, MOISÉS [address] [place] [address] Research Nurse Hematology/Oncology 06/05/20 [place] [address] [place] [address] Physician Hematology/Oncology 06/05/20 Clinical Sales Consultant Relationship Specialty Start Date End Date Aman Pack [address] [place] [address] PCP - General [facility] 09/03/21 Emma Tuttle RN [address] [place] [address] Research Nurse Hematology/Oncology 06/05/20 [place] [address] [place] [address] Physician Hematology/Oncology 06/05/20 Clinical Sales Consultant Relationship Specialty Start Date End Date Aman Pack [address] [place] [address] PCP - General Family Practice 09/03/21 Emma Tuttle, RN [address] [place] [address] Research Nurse Hematology/Oncology 06/05/20 [place] [address] [place] [address] Physician Hematology/Oncology 06/05/20 Clinical Sales Consultant Relationship Specialty Start Date End Date Chelobroderick Aman Walter [address] [facility] [place] [address] PCP - General Family Practice 09/03/21 Emma Tuttle, MOISÉS [address] [place] [address] Research Nurse Hematology/Oncology 06/05/20 [place] [address] [place] [address] Physician Hematology/Oncology 06/05/20 Clinical Sales Consultant Relationship Specialty Start Date End Date Aman Pack [address] [facility] [place] [place] [address] PCP - General Family Practice 09/03/21 Emma Tuttle, MOISÉS [address] [place] [address] Research Nurse Hematology/Oncology 06/05/20 [place] [address] [place] [address] Physician Hematology/Oncology 06/05/20 Clinical Sales Consultant Relationship Specialty Start Date End Date MelyAman echeverria [address] [facility] [place] [place] [address] PCP - General [facility] 09/03/21 Emma Tuttle, RN [address] [place] [address] Research Nurse Hematology/Oncology 06/05/20 [place] [address] [place] [address] Physician Hematology/Oncology 06/05/20 Clinical Sales Consultant Relationship Specialty Start Date End Date Aman Pack [address] [place] [address] PCP - General Family Practice 09/03/21 Emma Tuttle RN [address] [place] [address] Research Nurse Hematology/Oncology 06/05/20 [place] [address] [place] [address] Physician Hematology/Oncology 06/05/20 Clinical Sales Consultant Relationship Specialty Start Date End Date Aman Pack [address] [place] [address] PCP - General Family Practice 09/03/21 Emma Tuttle RN [address] [place] [address] Research Nurse Hematology/Oncology 06/05/20 [place] [address] [place] [address] Physician Hematology/Oncology 06/05/20 Clinical Sales Consultant Relationship Specialty Start Date End Date Aman Pack [address] [place] [address] PCP - General Family Practice 09/03/21 Emma Tuttle RN [address] [place] [address] Research Nurse Hematology/Oncology 06/05/20 [place] [address] [place] [address] Physician Hematology/Oncology 06/05/20 Clinical Sales Consultant Relationship Specialty Start Date End Date Aman Pack Walter [address] [place] [address] PCP - General Family Medicine 09/03/21 Emma Tuttle, RN [address] [place] [address] Research Nurse Hematology/Oncology 06/05/20 [place] [address] [place] [address] Physician Hematology/Oncology 06/05/20 Clinical Sales Consultant Relationship Specialty Start Date End Date Aman Pack [address] [place] [address] PCP - General Family Medicine 09/03/21 Emma Tuttle, RN [address] [place] [address] Research Nurse Hematology/Oncology 06/05/20 [place] PhD [address] [place], [place] [address] Physician Hematology/Oncology 06/05/20 Clinical Sales Consultant Relationship Specialty Start Date End Date Aman Pack [address] [place] [address] PCP - General Family Medicine 09/03/21 Emma Tuttle, RN [address] [place] [address] Research Nurse Hematology/Oncology 06/05/20 [place] [address] [place] [address] Physician Hematology/Oncology 06/05/20 Clinical Sales Consultant Relationship Specialty Start Date End Date Aman Pack [address] [place] [address] PCP - General Family Medicine 09/03/21 Emma Tuttle RN [address] [place] [address] Research Nurse Hematology/Oncology 06/05/20 [place] [address] [place] [address] Physician Hematology/Oncology 06/05/20 Clinical Sales Consultant Relationship Specialty Start Date End Date Aman Pack [address] [place] [address] PCP - General Family Medicine 09/03/21 Emma Tuttle, RN [address] [place] [address] Research Nurse Hematology/Oncology 06/05/20 [place] [address] [place] [address] Physician Hematology/Oncology 06/05/20 Clinical Sales Consultant Relationship Specialty Start Date End Date Aman Pack [address] [place] [address] PCP - General Family Medicine 09/03/21 Emma Tuttle, RN [address] [place] [address] Research Nurse Hematology/Oncology 06/05/20 [place] [address] [place] [address] Physician Hematology/Oncology 06/05/20 Clinical Sales Consultant Relationship Specialty Start Date End Date Aman Pack Walter [address] [place] [address] PCP - General Family Medicine 09/03/21 Emma Tuttle, RN [address] [place] [address] Research Nurse Hematology/Oncology 06/05/20 [place] [address] [place] [address] Physician Hematology/Oncology 06/05/20 Clinical Sales Consultant Relationship Specialty Start Date End Date Aman Pack [address] [place] [address] PCP - General Family Medicine 09/03/21 Emma Tuttle, RN [address] [place] [address] Research Nurse Hematology/Oncology 06/05/20 [place] [address] [place] [address] Physician Hematology/Oncology 06/05/20 Clinical Sales Consultant Relationship Specialty Start Date End Date Aman Pack [address] [place] [address] PCP - General Family Medicine 09/03/21 Emma Tuttle, RN [address] [place] [address] Research Nurse Hematology/Oncology 06/05/20 [place] [address] [place] [address] Physician Hematology/Oncology 06/05/20 Clinical Sales Consultant Relationship Specialty Start Date End Date Aman Pack [address] [place] [address] PCP - General Family Medicine 09/03/21 Emma Tuttle, RN [address] [place] [address] Research Nurse Hematology/Oncology 06/05/20 [place] [address] [place] [address] Physician Hematology/Oncology 06/05/20 Clinical Sales Consultant Relationship Specialty Start Date End Date Aman Pack [address] [place] [address] PCP - General Family Medicine 09/03/21 Emma Tuttle, RN [address] [place] [address] Research Nurse Hematology/Oncology 06/05/20 [place] [address] [place] [address] Physician Hematology/Oncology 06/05/20 Clinical Sales Consultant Relationship Specialty Start Date End Date Aman Pack [address] [facility] [place] [address] PCP - General Family Medicine 09/03/21 Emma Tuttle, RN [address] [place] [address] Research Nurse Hematology/Oncology 06/05/20 [place] [address] [place] [address] Physician Hematology/Oncology 06/05/20 Clinical Sales Consultant Relationship Specialty Start Date End Date Aman Pack [address] [facility] [place] [place] [address] PCP - General Family Medicine 09/03/21 Emma Tuttle, RN [address] [place] [address] Research Nurse Hematology/Oncology 06/05/20 [place] [address] [place] [address] Physician Hematology/Oncology 06/05/20 Clinical Sales Consultant Relationship Specialty Start Date End Date Aman Pack [address] [facility] [place] [place] [address] PCP - General Family Medicine 09/03/21 Emma Tuttle, RN [address] [place] [address] Research Nurse Hematology/Oncology 06/05/20 [place] [address] [place] [address] Physician Hematology/Oncology 06/05/20 Clinical Sales Consultant Relationship Specialty Start Date End Date Mey Aman Walter [address] [place] [address] PCP - General Family Medicine 09/03/21 Emma Tuttle RN [address] [place] [address] Research Nurse Hematology/Oncology 06/05/20 [place] [address] [place] [address] Physician Hematology/Oncology 06/05/20 Clinical Sales Consultant Relationship Specialty Start Date End Date Aman Pack [address] [place] [address] PCP - General Family Medicine 09/03/21 Emma Tuttle, MOISÉS [address] [place] [address] Research Nurse Hematology/Oncology 06/05/20 [place] [address] [place] [address] Physician Hematology/Oncology 06/05/20 Clinical Sales Consultant Relationship Specialty Start Date End Date Aman Pack [address] [place] [address] PCP - General Family Medicine 09/03/21 Emma Tuttle RN [address] [place] [address] Research Nurse Hematology/Oncology 06/05/20 [place] [address] [place] [address] Physician Hematology/Oncology 06/05/20 Clinical Sales Consultant Relationship Specialty Start Date End Date Aman Pack [address] [place] [address] PCP - General [facility] Medicine 09/03/21 Emma Tuttle, RN [address] [place] [address] Research Nurse Hematology/Oncology 06/05/20 [place] [address] [place] [address] Physician Hematology/Oncology 06/05/20 Clinical Sales Consultant Relationship Specialty Start Date End Date Aman Pack [address] [place] [address] PCP - [facility] 09/03/21 Emma Tuttle RN [address] [place] [address] Research Nurse Hematology/Oncology 06/05/20 [place] [address] [place] [address] Physician Hematology/Oncology 06/05/20 Clinical Sales Consultant Relationship Specialty Start Date End Date Aman Pack [address] [place] [address] PCP - General [facility] 09/03/21 Emma Tuttle RN [address] [place] [address] Research Nurse Hematology/Oncology 06/05/20 [place] [address] [place] [address] Physician Hematology/Oncology 06/05/20 Clinical Sales Consultant Relationship Specialty Start Date End Date Aman Pack [address] [place] [address] PCP - General Family [facility] 09/03/21 Emma Tuttle RN [address] [place] [address] Research Nurse Hematology/Oncology 06/05/20 [place] PhD [address] [place] [address] Physician Hematology/Oncology 06/05/20 Clinical Sales Consultant Relationship Specialty Start Date End Date Aman Pack [address] [place] [address] PCP - General Family [facility] 09/03/21 Emma Tuttle RN [address] [place] [address] Research Nurse Hematology/Oncology 06/05/20 [place] [address] [place] [address] Physician Hematology/Oncology 06/05/20 Clinical Sales Consultant Relationship Specialty Start Date End Date Aman Pack [address] [place] [address] PCP - General Family Medicine 09/03/21 Emma Tuttle RN [address] [place] [address] Research Nurse Hematology/Oncology 06/05/20 [place] [address] [place] [address] Physician Hematology/Oncology 06/05/20 Team Status: Active Member Role Status Dates Buffy Chung Primary Care Provider Active Team Status: Inactive Member Role Status Dates Buffy Chung Primary Care Provide r, Attending Provider, Referring Provider Active Clinical Sales Consultant Relationship Specialty Start Date End Date Aman Pack [address] [place] [address] PCP - General Family Medicine 09/03/21 Emma Tuttle, RN [address] [place] [address] Research Nurse Hematology/Oncology 06/05/20 [place] [address] [place] [address] Physician Hematology/Oncology 06/05/20 Clinical Sales Consultant Relationship Specialty Start Date End Date Aman Pack [address] [place] [address] PCP - [facility] 09/03/21 Emma Tuttle RN [address] [place] [address] Research Nurse Hematology/Oncology 06/05/20 [place] [address] [place] [address] Physician Hematology/Oncology 06/05/20 Clinical Sales Consultant Relationship Specialty Start Date End Date Aman Pack [address] [place] [address] PCP - General [facility] 09/03/21 Emma Tuttle RN [address] [place] [address] Research Nurse Hematology/Oncology 06/05/20 [place] [address] [place] [address] Physician Hematology/Oncology 06/05/20 Clinical Sales Consultant Relationship Specialty Start Date End Date Aman Pack [address] [place] [address] PCP - General Family Medicine 09/03/21 Emma Tuttle, MOISÉS [address] [place] [address] Research Nurse Hematology/Oncology 06/05/20 [place] [address] [place] [address] Physician Hematology/Oncology 06/05/20 Clinical Sales Consultant Relationship Specialty Start Date End Date Aman Pcak [address] [place] [address] PCP - General Family [facility] 09/03/21 Emma Tuttle RN [address] [place] [address] Research Nurse Hematology/Oncology 06/05/20 [place] [address] [place] [address] Physician Hematology/Oncology 06/05/20 Clinical Sales Consultant Relationship Specialty Start Date End Date Aman Pack [address] [place] [address] PCP - General Family [facility] 09/03/21 Emma Tuttle RN [address] [place] [address] Research Nurse Hematology/Oncology 06/05/20 [place] [address] [place] [address] Physician Hematology/Oncology 06/05/20 Clinical Sales Consultant Relationship Specialty Start Date End Date Aman Pack [address] [place] [address] PCP - General Family [facility] 09/03/21 Emma Tuttle, RN [address] [place] [address] Research Nurse Hematology/Oncology 06/05/20 William Howell MD, PhD [address] [place] [address] Physician Hematology/Oncology 06/05/20 Clinical Sales Consultant Relationship Specialty Start Date End Date Mey Aman Walter [address] [place] [address] PCP - General Family [facility] 09/03/21 Emma Tuttle RN [address] [place] [address] Research Nurse Hematology/Oncology 06/05/20 William Howell MD, PhD [address] [place] [address] Physician Hematology/Oncology 06/05/20 Clinical Sales Consultant Relationship Specialty Start Date End Date Buffy Chung, NETWORK INTELLIGENCE ANALYST [address] [place] [address] PCP - General Family Medicine 09/15/23 Emma Tuttle RN [address] [place] [address] Research Nurse Hematology/Oncology 06/05/20 [place] [address] [place] [address] Physician Hematology/Oncology 06/05/20 Clinical Sales Consultant Relationship Specialty Start Date End Date Buffy Chung, NETWORK INTELLIGENCE ANALYST [address] [place] [address] PCP - General [facility] 09/15/23 Emma Tuttle, RN [address] [place] [address] Research Nurse Hematology/Oncology 06/05/20 William Howell MD, PhD [address] [place] [address] Physician Hematology/Oncology 06/05/20 Clinical Sales Consultant Relationship Specialty Start Date End Date DeclanBuffy vasquez, NETWORK INTELLIGENCE ANALYST [address] [place] [address] PCP - [facility] 09/15/23 Emma Tuttle RN [address] [place] [address] Research Nurse Hematology/Oncology 06/05/20 William Howell MD, PhD [address] [place] [address] Physician Hematology/Oncology 06/05/20 Clinical Sales Consultant Relationship Specialty Start Date End Date Buffy Chung, NETWORK INTELLIGENCE ANALYST [address] [place] [address] PCP - [facility] 09/15/23 Emma Tuttle RN [address] [place] [address] Research Nurse Hematology/Oncology 06/05/20 William Howell MD, PhD [address] [place] [address] Physician Hematology/Oncology 06/05/20 Clinical Sales Consultant Relationship Specialty Start Date End Date Buffy Chung, NETWORK INTELLIGENCE ANALYST [address] [place] [address] PCP - General Family [facility] 09/15/23 Emma Tuttle, RN [address] [place] [address] Research Nurse Hematology/Oncology 06/05/20 William Howell MD, PhD [address] [place] [address] Physician Hematology/Oncology 06/05/20 Clinical Sales Consultant Relationship Specialty Start Date End Date Buffy Chung, NETWORK INTELLIGENCE ANALYST [address] [place] [address] PCP - General Family [facility] 09/15/23 Emma Tuttle RN [address] [place] [address] Research Nurse Hematology/Oncology 06/05/20 William Howell MD, PhD [address] [place] [address] Physician Hematology/Oncology 06/05/20 Clinical Sales Consultant Relationship Specialty Start Date End Date Buffy Chung, NETWORK INTELLIGENCE ANALYST [address] [place] [address] PCP - General Family Medicine 09/15/23 Emma Tuttle RN [address] [place] [address] Research Nurse Hematology/Oncology 06/05/20 William Howell MD, PhD [address] [place] [address] Physician Hematology/Oncology 06/05/20 Team Status: Inactive Member Role Status Dates Buffy Chung Primary Care Provider Active Sta rt: December 09, 2023 End: December 09, 2023 Rosa Stepanic Jr, DO Attending Provider Active Start: December 09, 2023 End: December 09, 2023 Clinical Sales Consultant Relationship Specialty Start Date End Date DeclanBuffy vasquez, NETWORK INTELLIGENCE ANALYST [address] [place] [address] PCP - General Family Medicine 09/15/23 Emma Tuttle RN [address] [place] [address] Research Nurse Hematology/Oncology 06/05/20 [place] [address] [place] [address] Physician Hematology/Oncology 06/05/20 Clinical Sales Consultant Relationship Specialty Start Date End Date DeclanBuffy vasqeuz CNP [address] [place] [address] PCP - General [facility] 09/15/23 Emma Tuttle RN [address] [place] [address] Research Nurse Hematology/Oncology 06/05/20 [place] PhD [address] [place] [address] Physician Hematology/Oncology 06/05/20 Clinical Sales Consultant Relationship Specialty Start Date End Date DeclanBuffy vasquez, NETWORK INTELLIGENCE ANALYST [address] [place] [address] PCP - General Family [facility] 09/15/23 Emma Tuttle RN [address] [place] [address] Research Nurse Hematology/Oncology 06/05/20 [place] [address] [place] [address] Physician Hematology/Oncology 06/05/20 Clinical Sales Consultant Relationship Specialty Start Date End Date Buffy Chung NETWORK INTELLIGENCE ANALYST [address] [place] [address] PCP - General Family Medicine 09/15/23 Emma Tuttle RN [address] [place] [address] Research Nurse Hematology/Oncology 06/05/20 [place] [address] [place] [address] Physician Hematology/Oncology 06/05/20 Clinical Sales Consultant Relationship Specialty Start Date End Date Buffy Chung NETWORK INTELLIGENCE ANALYST [address] [place] [address] PCP - General [facility] 09/15/23 Emma Tuttle RN [address] [place] [address] Research Nurse Hematology/Oncology 06/05/20 [place] [address] [place] [address] Physician Hematology/Oncology 06/05/20 Clinical Sales Consultant Relationship Specialty Start Date End Date Buffy Chung, NETWORK INTELLIGENCE ANALYST [address] [place] [address] PCP - General Family Medicine 09/15/23 Emma Tuttle, MOISÉS [address] [place] [address] Research Nurse Hematology/Oncology 06/05/20 [place] [address] [place] [address] Physician Hematology/Oncology 06/05/20 Clinical Sales Consultant Relationship Specialty Start Date End Date Aman Pack [address] [place] [address] PCP - General Family Medicine 09/03/21 09/14/23 Emma Tuttle RN [address] [place] [address] Research Nurse Hematology/Oncology 06/05/20 [place] [address] [place] [address] Physician Hematology/Oncology 06/05/20 Clinical Sales Consultant Relationship Specialty Start Date End Date Buffy Chung, NETWORK INTELLIGENCE ANALYST [address] [place] [address] PCP - General Family Medicine 09/15/23 Emma Tuttle, MOISÉS [address] [place] [address] Research Nurse Hematology/Oncology 06/05/20 [place] [address] [place] [address] Physician Hematology/Oncology 06/05/20 Clinical Sales Consultant Relationship Specialty Start Date End Date Aman Pack MD [address] [place] [address] PCP - General Family Medicine 08/07/23 Buffy Chung, YANE [address] [place] [address] Nurse Practitioner Family Medicine 08/07/23 Clinical Sales Consultant Relationship Specialty Start Date End Date Buffy Chung NETWORK INTELLIGENCE ANALYST [address] [place] [address] PCP - General Family Medicine 09/15/23 Emma Tuttle, RN [address] [place] [address] Research Nurse Hematology/Oncology 06/05/20 [place] [address] [place] [address] Physician Hematology/Oncology 06/05/20 Clinical Sales Consultant Relationship Specialty Start Date End Date Buffy Chung, NETWORK INTELLIGENCE ANALYST [address] [place] [address] PCP - General [facility] 09/15/23 Emma Tuttle, MOISÉS [address] [place] [address] Research Nurse Hematology/Oncology 06/05/20 [place] PhD [address] [place] [address] Physician Hematology/Oncology 06/05/20 Clinical Sales Consultant Relationship Specialty Start Date End Date Aman Pack MD [address] [place] [address] PCP - General Family Medicine 08/07/23 Buffy Chung NP [address] [place] [address] Nurse Practitioner Family Medicine 08/07/23 Clinical Sales Consultant Relationship Specialty Start Date End Date Aman Pack MD [address] [place] [address] PCP - General Family Medicine 08/07/23 Buffy Chung NP [address] [place] [address] Nurse Practitioner Family Medicine 08/07/23 Clinical Sales Consultant Relationship Specialty Start Date End Date Unallocated, Miguel Ángel Mena MD [address] [place], [place] [id number] PCP - General Family Medicine 03/31/24 Buffy Chung NP [address] [place] [address] Nurse Practitioner Family Medicine 08/07/23 Clinical Sales Consultant Relationship Specialty Start Date End Date Aman Pack MD [address] [place] [address] PCP - General Family Medicine 04/08/24 Buffy Chung NP [address] [place] [address] Nurse Practitioner Family Medicine 08/07/23 Clinical Sales Consultant Relationship Specialty Start Date End Date Buffy Chung NETWORK INTELLIGENCE ANALYST [address] [place] [address] PCP - General Family Medicine 09/15/23 Emma Tuttle, MOISÉS [address] [place] [address] Research Nurse Hematology/Oncology 06/05/20 [place] PhD [address] [place] [address] Physician Hematology/Oncology 06/05/20 Clinical Sales Consultant Relationship Specialty Start Date End Date Aman Pack MD [address] [place] [address] PCP - General Family Medicine 08/07/23 Buffy Chung NP [address] [place] [address] Nurse Practitioner Family Medicine 08/07/23 Clinical Sales Consultant Relationship Specialty Start Date End Date Aman Pack MD [address] [place] [address] PCP - General Family Medicine 08/07/23 Buffy Chung NP [address] [place] [address] Nurse Practitioner Family Medicine 08/07/23 Clinical Sales Consultant Relationship Specialty Start Date End Date Aman Pack MD [address] [place] [address] PCP - General Family Medicine 08/07/23 Buffy Chung NP [address] [place] [address] Nurse Practitioner Family Medicine 08/07/23 Clinical Sales Consultant Relationship Specialty Start Date End Date Aman Pack MD [address] [place] [address] PCP - General Family Medicine 08/07/23 Buffy Chung NP [address] [place] [address] Nurse Practitioner Family Medicine 08/07/23 Clinical Sales Consultant Relationship Specialty Start Date End Date Aman Pack MD [address] [place] [address] PCP - General Family Medicine 08/07/23 Buffy Chung NP [address] [place] [address] Nurse Practitioner Family Medicine 08/07/23 Clinical Sales Consultant Relationship Specialty Start Date End Date Aman Pack MD [address] [place] [address] PCP - General Family Medicine 08/07/23 Buffy Chung NP [address] [place] [address] Nurse Practitioner Family Medicine 08/07/23 Clinical Sales Consultant Relationship Specialty Start Date End Date Aman Pack MD [address] [place] [address] PCP - General Family Medicine 08/07/23 Buffy Chung NP [address] [place] [address] Nurse Practitioner Family Medicine 08/07/23 Clinical Sales Consultant Relationship Specialty Start Date End Date Aman Pack MD [address] [place] [address] PCP - General Family Medicine 08/07/23 Buffy Chung NP [address] [place] [address] Nurse Practitioner Family Medicine 08/07/23 Clinical Sales Consultant Relationship Specialty Start Date End Date Aman Pack MD [address] [place] [address] PCP - General Family Medicine 08/07/23 Buffy Chung NP [address] [place] [address] Nurse Practitioner Family Medicine 08/07/23 Clinical Sales Consultant Relationship Specialty Start Date End Date Aman Pack MD [address] [place] [address] PCP - General Family Medicine 08/07/23 Buffy Chung NP [address] [place] [address] Nurse Practitioner Family Medicine 08/07/23 Clinical Sales Consultant Relationship Specialty Start Date End Date Aman Pack MD [address] [place] [address] PCP - General Family Medicine 04/08/24 Buffy Chung NP [address] [place] [address] Nurse Practitioner Family Medicine 08/07/23 Clinical Sales Consultant Relationship Specialty Start Date End Date Aman Pack MD [address] [place] [address] PCP - General Family Medicine 04/08/24 Buffy Chung NP [address] [place] [address] Nurse Practitioner Family Medicine 08/07/23 Clinical Sales Consultant Relationship Specialty Start Date End Date Aamn Pack MD [address] [place] [address] PCP - General Family Medicine 04/08/24 Buffy Chung NP [address] [place] [address] Nurse Practitioner Family Medicine 08/07/23 Clinical Sales Consultant Relationship Specialty Start Date End Date Buffy Chung WREATH INSPECTOR-NETWORK INTELLIGENCE ANALYST PCP - General Nurse Practitioner 05/19/24 Clinical Sales Consultant Relationship Specialty Start Date End Date Aman Pack MD [address] [place] [address] PCP - General Family Medicine 04/08/24 Buffy Chung NP [address] [place] [address] Nurse Practitioner Family Medicine 08/07/23 Clinical Sales Consultant Relationship Specialty Start Date End Date Buffy Chung, NETWORK INTELLIGENCE ANALYST [address] [place], [place] [address] PCP - General Family Medicine 09/15/23 Emma Tuttle, RN [address] [place] [address] Research Nurse Hematology/Oncology 06/05/20 William Howell MD, PhD [address] [place] [address] Physician Hematology/Oncology 06/05/20 Clinical Sales Consultant Relationship Specialty Start Date End Date Buffy Chung, NETWORK INTELLIGENCE ANALYST [address] [place] [address] PCP - General Family Medicine 09/15/23 Emma Tuttle RN [address] [place] [address] Research Nurse Hematology/Oncology 06/05/20 William Howell MD, PhD [address] [place] [address] Physician Hematology/Oncology 06/05/20 Clinical Sales Consultant Relationship Specialty Start Date End Date Buffy Chung, NETWORK INTELLIGENCE ANALYST [address] [place] [address] PCP - General Family Medicine 09/15/23 Emma Tuttle RN [address] [place] [address] Research Nurse Hematology/Oncology 06/05/20 William Howell MD, PhD [address] [place] [address] Physician Hematology/Oncology 06/05/20 Clinical Sales Consultant Relationship Specialty Start Date End Date Buffy Chung, NETWORK INTELLIGENCE ANALYST [address] [place] [address] PCP - General Family Medicine 09/15/23 Emma Tuttle RN [address] [place] [address] Research Nurse Hematology/Oncology 06/05/20 [place] PhD [address] [place] [address] Physician Hematology/Oncology 06/05/20 Clinical Sales Consultant Relationship Specialty Start Date End Date Aman Pack MD [address] [place] [address] PCP - General Family Medicine 04/08/24 Buffy Chung NP [address] [place] [address] Nurse Practitioner Family Medicine 08/07/23 Clinical Sales Consultant Relationship Specialty Start Date End Date Aman Pack MD [address] [place] [address] PCP - General Family Medicine 04/08/24 Buffy Chung NP [address] [place] [address] Nurse Practitioner Family Medicine 08/07/23 Clinical Sales Consultant Relationship Specialty Start Date End Date Aman Pack MD [address] [place] [address] PCP - General Family Medicine 04/08/24 Buffy Chung NP [address] [place] [address] Nurse Practitioner Family Medicine 08/07/23 Clinical Sales Consultant Relationship Specialty Start Date End Date Aman Pack MD [address] [place] [address] PCP - General Family Medicine 04/08/24 Buffy Chung NP [address] [place] [address] Nurse Practitioner Family Medicine 08/07/23 Clinical Sales Consultant Relationship Specialty Start Date End Date Buffy Chung NETWORK INTELLIGENCE ANALYST [address] [place] [address] PCP - General Family Medicine 09/15/23 Emma Tuttle, RN [address] [place] [address] Research Nurse Hematology/Oncology 06/05/20 [place] [address] [place] [address] Physician Hematology/Oncology 06/05/20 Clinical Sales Consultant Relationship Specialty Start Date End Date Buffy Chung APRN-NETWORK INTELLIGENCE ANALYST PCP - General Nurse Practitioner 05/19/24 Clinical Sales Consultant Relationship Specialty Start Date End Date Buffy Chung APRN-NETWORK INTELLIGENCE ANALYST [address] [place] [address] PCP - General Nurse Practitioner 12/28/22 Clinical Sales Consultant Relationship Specialty Start Date End Date Buffy Chung APRN-NETWORK INTELLIGENCE ANALYST [address] [place] [address] PCP - General Nurse Practitioner 12/28/22 Clinical Sales Consultant Relationship Specialty Start Date End Date Buffy Chung, WREATH INSPECTOR-NETWORK INTELLIGENCE ANALYST [address] [place] [address] PCP - General Nurse Practitioner 12/28/22 Clinical Sales Consultant Relationship Specialty Start Date End Date Aman Pack MD [address] [place] [address] PCP - General Family Medicine 04/08/24 Buffy Chung NP [address] [place] [address] Nurse Practitioner Family Medicine 08/07/23 Clinical Sales Consultant Relationship Specialty Start Date End Date Aman Pack MD [address] [place] [address] PCP - General Family Medicine 04/08/24 Buffy Chung NP [address] [place] [address] Nurse Practitioner Family Medicine 08/07/23 Clinical Sales Consultant Relationship Specialty Start Date End Date Buffy Chung, WREATH INSPECTOR-NETWORK INTELLIGENCE ANALYST PCP - General Nurse Practitioner 05/19/24 Clinical Sales Consultant Relationship Specialty Start Date End Date Aman Pack MD [address] [place] [address] PCP - General Family Medicine 04/08/24 Buffy Chung NP [address] [place] [address] Nurse Practitioner Family Medicine 08/07/23 Clinical Sales Consultant Relationship Specialty Start Date End Date Aman Pack MD [address] [place] [address] PCP - General Family Medicine 04/08/24 Buffy Chung NP [address] [place] [address] Nurse Practitioner Family Medicine 08/07/23 (unrecognized sect ion and content) No Status Records FoundNo Status Records FoundNo Status Records FoundNo Status Records FoundNo Status Records FoundNo Status Records FoundNo Status Records FoundNo Status Records FoundNo Status Records Found INFORMATION SOURCE (unrecogn ized section and content) DATE CREATED AUTHOR 08/13/2022 [facility] DATE CREATED AUTHOR AUTHOR'S ORGANIZ ATION 10/17/2022 [facility] DATE CREATED AUTHOR AUTHOR'S ORGANIZ ATION 08/10/2023 [facility] DATE CREATED AUTHOR AUTHOR'S ORGANIZ ATION 06/02/2024 [facility] DATE CREATED AUTHOR AUTHOR'S ORGANIZ ATION 07/24/2024 [facility] DATE CREATED AUTHOR AUTHOR'S ORGANIZ ATION 07/26/2024 [facility] DATE CREATED AUTHOR AUTHOR'S ORGANIZ ATION 08/05/2024 [facility] DATE CREATED AUTHOR AUTHOR'S ORGANIZ ATION 08/06/2024 [facility] DATE CREATED AUTHOR AUTHOR'S ORGANIZ ATION 08/13/2024 [facility] EPIC Goals (unrecognized section and content) Goals may be documented in a n alternate sectionGoals may be documented in an alternate sectionNot on filedocumented as of this encounterNot on filedocumented as of this encounterNot on filedocumented as of this encounterNot on filedocumented as of this encounterNot on filedocumented as of this encounterNot on filedocumented as of this encounterNot on filedocumented as of this encounterNot on filedocumented as of this encounterNot on filedocumented as of this encounter PRN Active and Recently Administ ered Medications (unrecognized section and content) Medication Order 03/17/2024 03/18/2024 03/19/2024 fentaNYL 50 mcg/mL injection (SUBLIMAZE) (CANCELED) INTRAVENOUS, X (OR/PROCEDURE) PRN, Starting on Fri03/19/24 at 0844, Until Fri03/19/24 at 0923, Intraprocedure 0844 (Given - Provid er: Sadaf Farah RN)0850 (Given - Provider: Sadaf Farah RN)0851 (Given - Provider: Sadaf Farah RN) lidocaine (PF) 20 mg/mL (2 %) injection (XYLOCAINE) (CANCELED) SUBCUTANEOUS, X (OR/PROCEDURE) PRN, Starting on Fri03/19/24 at 0848, Until Fri03/19/24 at 0923, Intraprocedure 0848 (Given - Provid er: Chad Aguirre, - Comment: sacral) midazolam (PF) injection (VERSED) (CANCELED) INTRAVENOUS, X (OR/PROCEDURE) PRN, Starting on Fri03/19/24 at 0844, Until Fri03/19/24 at 0923, Intraprocedure 0844 (Given - Provid er: Sadaf Farah RN)0850 (Given - Provider: Sadaf Farah RN) FOR RECORDS PERTAINING TO PATIENTS WHO ARE [...] BE BASED ON THE PRIMARY CLINICAL RECORDS. [employer] [facility]. provides no warranty or guarantee of the accuracy or completeness of information in this document.
--- NOTE | 2024-08-13 23:37 | ED_ITS ---
HPI - Dental/Oral General Chief complaint: Dental/Oral Stated complaint: MOUTH INFECTION Time Seen by Provider: 08/13/24 23:20 Source: patient Mode of arrival: walk-in Limitations: no limitations History of Present Illness HPI Narrative: cc = dental pain, cheek pain Pt presents with pain in the left cheek radiating from a painful tooth in the left upper mouth. he has numerous missing teeth and most of the remaining teeth are fractured with dental caries. Related Data Home Medications ?Medication ?Instructions ?Recorded ?Confirmed dapagliflozin propanediol 10 mg 10 mg PO DAILY 08/06/23 09/11/23 tablet (Farxiga) insulin glargine 100 unit/mL (3 35 unit subcut BID 08/06/23 09/11/23 mL) subcutaneous pen (Lantus Solostar U-100 Insulin) lisinopril 20 mg tablet 20 mg PO DAILY 08/06/23 09/11/23 chemo trial drug 1 pill PO DAILY 09/11/23 09/11/23 Previous Rx's ?Medication ?Instructions ?Recorded cephalexin 500 mg capsule 500 mg PO Q6H 7 days #28 caps 10/10/23 clindamycin HCl 150 mg capsule 450 mg (3 x 150 mg) PO TID 7 days 08/13/24 #63 caps Allergies Allergy/AdvReac Type Severity Reaction Status Date / Time No Known Drug Allergies Allergy Verified 08/13/24 23:17 [facility] Social History Smoking status: Never smoker Little interest or pleasure in doing things: not at all Feeling down, depressed, or hopeless: not at all Exam Narrative Exam Narrative: General: The patient is comfortable, alert and oriented x3, well appearing, non toxic in no apparent distress. Head: Atraumatic and normocephalic. Eyes: Normal conjunctiva ENT: The oropharynx is normal. No pharyngeal erythema, uvular edema, tonsillar exudates, asymmetry or trismus. Uvula is midline. He has numerous missing teeth, pain on percussion of the tooth #4 and numerous decayed teeth with dental caries. There is no evidence of facial asymmetry or abscess formation but he has tenderness to the left cheek. Floor of the mouth is soft. No tenderness in the submental or submandibular space. No tongue elevation or deviation. The patient has no evidence of periapical abscess, gingivitis or other acute pathology. Airway is patent. Neck: The neck demonstrates normal range of motion. No meningeals signs are present. No stridor. No masses or lymphadenopathy noted. Respiratory: No acute distress, lungs are clear to auscultation, no wheezing, rhonchi, or rales noted. No stridor or retractions are noted. Cardiovascular: Regular rate and rhythm Skin: The skin exam shows no evidence of rashes Neuro: Alert and oriented x4, normal speech Lymphatic: No cervical lymphadenopathy Constitutional Vital Signs, click to edit/add: Last Vital Signs Temp 98.3 F 08/13/24 23:17 Pulse 78 08/13/24 23:17 Resp 16 08/13/24 23:17 BP 151/87 H 08/13/24 23:17 Pulse Ox 95 08/13/24 23:17 O2 Del Method Room Air 08/13/24 23:17 Course Vital Signs Vital signs: Vital Signs Temperature 98.3 F 08/13/24 23:17 Pulse Rate 78 08/13/24 23:17 Respiratory Rate 16 08/13/24 23:17 Blood Pressure 151/87 H 08/13/24 23:17 Pulse Oximetry 95 08/13/24 23:17 Oxygen Delivery Method Room Air 08/13/24 23:17 Temperature 98.3 F 08/13/24 23:17 Pulse Rate 78 08/13/24 23:17 Respiratory Rate 16 08/13/24 23:17 Blood Pressure 151/87 H 08/13/24 23:17 Pulse Oximetry 95 08/13/24 23:17 Oxygen Delivery Method Room Air 08/13/24 23:17 MDM - Dental/Oral MDM Narrative Medical decision making narrative: pt given first dose of clindamycin in the ED and prescribed the same to take at home.He was given topical dental anesthetic paste and discharged home with recommendation to follow up with dentist for extraction of the decayed tooth. Discharge Plan Discharge Chief Complaint: Dental/Oral Clinical Impression: Dental caries, Toothache Patient Disposition: Home, Self-Care Time of Disposition Decision: 23:41 Prescriptions / Home Meds: New clindamycin HCl 150 mg capsule 450 mg PO TID 7 Days Qty: 63 0RF No Action dapagliflozin propanediol [Farxiga] 10 mg tablet 10 mg PO DAILY lisinopril 20 mg tablet 20 mg PO DAILY insulin glargine [Lantus Solostar U-100 Insulin] 100 unit/mL (3 mL) insulin pen 35 unit SUBCUT BID chemo trial drug 1 pill PO DAILY cephalexin 500 mg capsule 500 mg PO Q6H 7 Days Qty: 28 0RF Print Language: Monegasque Instructions: Toothache (ED) Referrals: Buffy Chung BACTERIOLOGIST PHARMACEUTICAL [Primary Care Provider] - 1 week
[2024-08-13] MEDS: CLINDAMYCIN HCL 150 MG CAPSULE 450 MG PO (23:51)
[2024-08-13] MEDS: BENZOCAINE 30 ML, lidocaine HCL 15 ML MM (23:51)
== END 2024-08-14 00:03 | disposition home or self-care (01) ==
PROVIDERS: Emergency Provider Emergency Medicine; PCP Nurse Practitioner
DX: K02.9 Dental caries, unspecified (principal); K08.89 Other specified disorders of teeth and supporting structures
CPT/HCPCS: 99283

== ENCOUNTER 2025-02-18 11:39 | Outpatient (OUT) | payer OTHER, SELFPAY ==
--- OUTSIDE RECORDS SUMMARY | 2025-02-04 12:00 | XMS_ITS | Encounter Summary ---
Author Organization [facility] Healthcare Address [address] [place] [address] Care Team Providers Care Maintenance Electrician Name Role Phone Buffy Chung NP Unavailable [phone] Aman Mathias MD Primary Care Provider [phone] Reason for Visit * Rehabilitation - Outpatient (Routine) - Authorized Specialty Diagnoses / Procedures Referred By Yuri metzger Referred To Contact Physical Therapy Diagnoses Sprain of left shoulder, initial encounter Tear of left supraspinatus tendon Procedures [facility] 60 MINUTES Yaniv Thompson, DIVISION CHIEF [address] [place] [address] Phone: tel: fax: Jason Elizabeth, PT [address] [place] [address] Phone: tel: fax: Referral ID Status Reason Start Date Expiration Date Visits Requested Visits Authorized [id number] Authorized Specialty Services Required 12/14/2024 03/16/2025 24 24 Encounter Details Date Type Department Care Team (Late st Contact Info) Description 02/04/2025 12:00 PM EDT Treatment [facility] [address] [place] [address] Melisa Rocha PTA [address] [place], [place] [phone] Tear of left supraspinatus tendon (Primary Dx); Left bicipital tenosynovitis; Sprain of left shoulder, unspecified shoulder sprain type, initial encounter Social History Tobacco Use Types Packs/Day Years Used Date Smoking Tobacco: Never Smokeless Tobacco: Never Alcohol Use Standard Drinks/Week Comments Not Currently 0 (1 standard drink = 0.6 oz pur e alcohol) PHQ-2 Answer Date Recorded Patient Health Questionnaire-2 Score 2 10/14/2023 Sex and Gender Information Value Date Recorded Sex Assigned at Not on file Legal Sex Male 7:02 PM EDT Gender Identity Not on file Sexual Orientation Not on file documented as of this encounter Progress Notes * Melisa Rocha, AUTO AIR CONDITIONING APPRENTICE - 02/04/2025 12:00 PM EDT Images from the original note were not included. Physical Therapy Physical Therapy Treatment Visit Patient Name: Zachary Avitia Today's Date: 02/04/2025 Encounter Diagnoses Name Primary? Tear of left supraspinatus tendon Yes Left bicipital tenosynovitis Sprain of left shoulder, unspecified shoulder sprain type, initial encounter Visit number: 03/02 on C9 Continue Physical Therapy on new C9 through 03/16/15 Time in: 3:02 pm Time out: 3:54 pm Supervised time: 40 min Total time: 52 min Subjective Zachary Avitia 54 y.o. male presents to physical therapy w/ chief c/o L shoulder/arm pain. Mechanism of Onset: trip/fall 05/19/24 a work, SX 08/16/24, pt was last here 11/18/24, improving overall but still c/o stiffness and weakness. 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 (01/04/25) Treatment Interventions Manual Therapy:x 10 min PROM and stretching all planes, massage ant shoulder bicep area and lateraldelt areas. PROM near normal limits flex and abd, min restricted ER. Therapeutic Exercise:x 30 min supervised, 32min total ROM/flexibility, strength as appropriate. Modalities: CP x 10 min Assessment/Plan L shoulder pain, decreased ROM, weakness causing increased difficulty with ADLs/self care, decreased QOL s/p RCR, SAD, biceps tenodesis 08/16/24 following trip/fall injury at work 05/19/24 Pt demos good tolerance to strength progression per grid. Fatigued with added flex and abd in standing with 1#. AROM overhead remains min limited in standing. Min restriction remains in all planes with PROM. Continue as tolerated. Cosigned by Jason Elizabeth PT at 02/04/2025 1:07 PM EDT documented in this encounter Plan of Treatment Upcoming Encounters Date Type Department Care Team (Late st Contact Info) Description 02/22/2025 3:00 PM EDT Treatment [facility] [address] [place] [phone] Melisa Rocha PTA [address] [place] [address] 02/24/2025 3:00 PM EDT Treatment [facility] [address] [place] [address] Melisa Rocha PTA [address] [place] [address] 07/25/2025 8:15 AM EST Office Visit [facility] [address] [place] [phone] Yaniv Thompson, YANE [address] [place] [address] documented as of this encounter Visit Diagnoses Diagnosis Tear of left supraspinatus tendon- Primary Left bicipital tenosynovitis Sprain of left shoulder, unspecified shoulder sprain type, initial encounter documented in this encounter Care Teams Maintenance Electrician Relationship Specialty Start Date End Date Aman Mathias MD PCP - General Family Medicine 04/08/24 Buffy Chung NP Nurse Practitioner Family Medicine 08/07/23 documented as of this encounter
--- OUTSIDE RECORDS SUMMARY | 2025-02-17 15:30 | XMS_ITS | Encounter Summary ---
Author Organization [facility] Healthcare Address [address] [place] [address] Care Team Providers Care Executive Relations Specialist Name Role Phone Buffy Chung NP Unavailable [phone] Aman Mathias MD Primary Care Provider [phone] Reason for Visit * Rehabilitation - Outpatient (Routine) - Authorized Specialty Diagnoses / Procedures Referred By Yuri metzger Referred To Contact Physical Therapy Diagnoses Sprain of left shoulder, initial encounter Tear of left supraspinatus tendon Procedures [place] [facility] 60 MINUTES Yaniv Thompson, LINUX SYSTEMS ENGINEER [address] [place] [address] Phone: tel: fax: Jason Elizabeth, PT [address] [place] [address] Phone: tel: fax: Referral ID Status Reason Start Date Expiration Date Visits Requested Visits Authorized [id number] Authorized Specialty Services Required 12/14/2024 03/16/2025 24 24 Encounter Details Date Type Department Care Team (Late st Contact Info) Description 02/17/2025 3:30 PM EDT Treatment [facility] [address] [place] [address] Melisa Rocha PTA [address] [place], [place] [phone] Tear of left supraspinatus tendon (Primary Dx); Left bicipital tenosynovitis; Sprain of left shoulder, unspecified shoulder sprain type, initial encounter; Sprain of left shoulder, initial encounter Social History Tobacco Use Types [...] as of this encounter Progress Notes * Mleisa Rocha, LENS CLEANER - 02/17/2025 3:30 PM EDT Images from the original note were not included. Physical Therapy Physical Therapy Treatment Visit Patient Name: Zachary Avitia Today's Date: 02/17/2025 Encounter Diagnoses Name Primary? Tear of left supraspinatus tendon Yes Left bicipital tenosynovitis Sprain of left shoulder, unspecified shoulder sprain type, initial encounter Sprain of left shoulder, initial encounter Visit number: 04/01 on C9 Continue Physical Therapy on new C9 through 03/16/15 Time in: 3:29 pm Time out: 4:28 pm Supervised time: 49 min Total time: 59 min Subjective Zachary Avitia 54 y.o. 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 Therapeutic Exercise:x 39min supervised ROM/flexibility, strength as appropriate. Modalities: CP x 10 min Assessment/Plan L shoulder pain, decreased ROM, weakness causing increased difficulty with ADLs/self care, decreased QOL s/p RCR, SAD, biceps tenodesis 08/16/24 following trip/fall injury at work 05/19/24 Pt demos good tolerance to strength progression per grid. Fatigued with added flex and abd in standing with 1#. Difficulty especially with overhead press, held today. AROM overhead remains min limited in standing. Min restriction remains in all planes with PROM. Continue as tolerated. Cosigned by Jason Elizabeth PT at 02/18/2025 9:34 AM EDT documented in this encounter Plan of Treatment Upcoming Encounters Date Type Department Care Team (Late st Contact Info) Description 02/22/2025 3:00 PM EDT Treatment [facility] [id number] [place] [phone] Melisa Rocha PTA [address] [place] [address] 02/24/2025 3:00 PM EDT Treatment [facility] [id number] [place] [phone] Melisa Rocha PTA [address] [place] [address] 07/25/2025 8:15 AM EST Office Visit [facility] [address] [place] [phone] Yaniv Thompson, YANE [address] [place] [address] documented as of this encounter Visit Diagnoses Diagnosis Tear of left supraspinatus tendon- Primary Left bicipital tenosynovitis Sprain of left shoulder, unspecified shoulder sprain type, initial encounter documented in this encounter Care Teams Executive Relations Specialist Relationship Specialty Start Date End Date Aman Mathias MD PCP - General Family Medicine 04/08/24 Buffy Chung NP Nurse Practitioner Family Medicine 08/07/23 documented as of this encounter
--- OUTSIDE RECORDS SUMMARY | 2025-02-18 08:00 | XMS_ITS | Encounter Summary ---
Author Organization [employer] Address [facility] [id number] [address] [place] [address] Care Team Providers Care Electrotype Servicer Name Role Phone Buffy Chung APRN-PHYSICIAN PRACTICE CONSULTANT Primary Care Provider Reason for Referral * Cardiology (Routine) - Authorized Specialty Diagnoses / Procedures Referred By Contac t Referred To Contact Diagnoses Palpitations Procedures Holter monitor 3-5 days Mal Coello MD [address] [place] [address] Phone: tel: fax: Referral ID Status Reason Start Date Expiration Date V isits Requested Visits Authorized [id number] Authorized 02/18/2025 02/18/2026 1 1 Reason for Visit * Reason Comments Follow-up 6 months Cardiomyopathy Hypertension Palpitations Encounter Details Date Type Department Care Team (Late st Contact Info) Description 02/18/2025 8:00 AM EDT Office Visit [facility] [address] [place] [address] Chris Ken MD [address] [place], [place] [id number] Mal Coello MD [address] [place] [address] Primary hypertension (Primary Dx); Palpitations; Cardiomyopathy, hypertrophic (CMS-HCC); LVH (left ventricular hypertrophy); GENET (obstructive sleep apnea); Atrial flutter (CMS-HCC); Tachycardia; Nonrheumatic pulmonary valve stenosis; Essential hypertension Social History Tobacco Use Types Packs/Day Years Used Date Smoking Tobacco: Never Smokeless Tobacco: Never Alcohol Use Standard Drinks/Week Comments Yes 0 (1 standard drink = 0.6 oz pur e alcohol) social, rare Childcare Answer Date Recorded Childcare Unknown 11/18/2018 Employment Answer Date Recorded Employment Unknown 11/18/2018 Hunger Screening Answer Date Recorded Within the past 12 months we worried whether our food would run out before we got money to buy more. Never True 02/18/2025 Within the past 12 months th e food we bought just didn't last and we didn't have money to get more. Never True 02/18/2025 Purpose - Life Answer Date Recorded Purpose and direction in life Unknown Sex and Gender Information Value Date Recorded Sex Assigned at Male 03/23/2023 10:26 AM EDT Legal Sex Male 11:27 AM EDT Gender Identity Male 03/23/2023 10:26 AM EDT Sexual Orientation Straight 03/23/2023 10 :26 AM EDT documented as of this encounter Last Filed Vital Signs Vital Sign Reading Time Taken Comments Blood Pressure 140/80 02/18/2025 7:43 AM EDT Pulse 69 02/18/2025 7:43 AM EDT Temperature - - Respiratory Rate - - Oxygen Saturation 100% 02/18/2025 7:43 AM EDT Inhaled Oxygen Concentration - - Weight 119.3 kg (263 lb) 02/18/2025 7:43 AM EDT Height 177.8 cm (5' 10 ) 02/18/2025 7:43 AM EDT Body Mass Index 37.74 02/18/2025 7:43 AM EDT documented in this encounter Progress Notes * Mal Coello MD - 02/18/2025 8:00 AM EDT Zachary Avitia Jr. Date of visit: 02/18/2025 Date of : 1970 Age: 54 y.o. Patient Active Problem List Diagnosis Chronic myeloid leukemia (CMS-HCC) Abnormal ECG Primary hypertension GENET (obstructive sleep apnea) LVH (left ventricular hypertrophy) Cardiomyopathy, hypertrophic (CMS-HCC) Allergies Allergen Reactions Morphine Nausea And Vomiting Opioids - Morphine Analogues Nausea And Vomiting Current Outpatient Medications Medication Sig Dispense Refill amLODIPine (NORVASC) 10 mg tablet Take 1 tablet (10 mg total) by mouth in the morning. insulin glargine (LANTUS, BASAGLAR) 100 unit/mL (3 mL) insulin pen Inject 40 Units under the skin in the morning and 40 Units before bedtime. insulin lispro (HumaLOG) 100 unit/mL insulin pen in the morning and at noon and in the evening. Take with meals. Sliding scale. lisinopriL (PRINIVIL,ZESTRIL) 20 mg tablet Take 1 tablet (20 mg total) by mouth in the morning. NON FORMULARY Med Name: trial chemo drug, unknown name [id number] pravastatin (PRAVACHOL) 80 mg tablet Take 1 tablet (80 mg total) by mouth in the morning. No current facility-administered medications for this visit. Chief Complaint Patient presents with Follow-up 6 months Cardiomyopathy Hypertension Palpitations History of Present Illness 54-year-old male is here in follow-up. He is accompanied with the his . He was diagnosed with hypertrophic cardiomyopathy following a screening echo prior to his CML treatment. Underwent cardiac I am at right and genetic testing both non diagnostic he does have some scattered LGE Today he denies chest pain shortness of breath syncope or presyncope he is fairly active. He complains of left shoulder pain since his left shoulder surgery in August. And told me that he does have some random heart fluttering 3 episode this week associated with cough. He does not smoke or drink alcohol but he drinks about 4 large cups of coffee a day Past Medical History: Diagnosis Date CML (chronic myelocytic leukemia) ([facility]) Diabetes mellitus type 2, controlled ([facility] [place]) Hyperlipidemia Hypertension Rash Sleep apnea cpap Visual impairment No data recorded No data recorded No data recorded Past Surgical History: Procedure Laterality Date BACK SURGERY L4-5 fusion CHOLECYSTECTOMY KNEE ARTHROSCOPY Right ROTATOR CUFF REPAIR Right ROTATOR CUFF REPAIR Left 08/2024 TONSILLECTOMY UVULOPALATOPHARYNGOPLASTY 2000 Family History Problem Relation Age of Onset Diabetes Mother Heart disease Father Diabetes Father Colon cancer Father Social History Socioeconomic History Marital status: Spouse [...] on file Food Insecurity: No Food Insecurity (02/18/2025) Hunger Screening Food Insecurity - Worry: Never True Food Insecurity - Inability: Never True Transportation Needs: Not on file Physical Activity: Not on file Stress: Not on file Social Connections: Not on file Interpersonal Safety: Unknown (07/31/2023) [facility]ceived from [facility] Safety & Environment Fear of Current or Ex-Partner: Not on file Emotionally Abused: Not on file Physically Abused: Not on file Sexually Abused: Not on file Physically or Sexually Abused: Not on file Housing Instability: Not on file Review of Systems Review of Systems Constitutional: Positive for malaise/fatigue. HENT: Negative. Eyes: Negative. Respiratory: Positive for cough. Hematologic/Lymphatic: Negative. Skin: Negative. Musculoskeletal: Positive for arthritis and back pain. Gastrointestinal: Negative. Neurological: Positive for headaches and loss of balance. Negative for light-headedness. Psychiatric/Behavioral: Negative. Allergic/Immunologic: Negative. CARDIOVASCULAR: Please review HPI. Physical Examination General appearance: Alert, oriented and cooperative. In no acute distress. Skin: Warm and dry to touch. Head: Normocephalic, without obvious abnormality, atraumatic. Ears, Nose, Mouth, Throat: Throat clear without erythema or exudate. Dentition intact. Eyes: Conjunctivae unremarkable, EOM intact. Neck: No JVD, No carotid bruit. Neck supple, trachea midline. Respiratory: Clear to auscultation bilaterally, no use of accessory muscles. Cardiovascular: RRR with normal S1 and S2 with no murmurs. Gastrointestinal: Soft, non-tender. Bowel sounds normal. Musculoskeletal: No peripheral edema. Neurologic: Oriented to time, person and place, affect appropriate. No focal/major motor defects noted. Psychiatric: Appropriate mood, memory and judgement. VITAL SIGNS: BP 140/80 (BP Site: Left Arm, BP Postition: Sitting) Pulse 69 Ht 177.8 cm (5' 10 ) Wt 119.3 kg (263 lb) SpO2 100% BMI 37.74 kg/m?? Orders Placed or Reconciled This Encounter Medications pravastatin (PRAVACHOL) 80 mg tablet Sig: Take 1 tablet (80 mg total) by mouth in the morning. amLODIPine (NORVASC) 10 mg tablet Sig: Take 1 tablet (10 mg total) by mouth in the morning. Medications Discontinued During This Encounter Medication Reason amLODIPine (NORVASC) 5 mg tablet Dose adjustment pravastatin (PRAVACHOL) 40 mg tablet Dose adjustment IMPRESSIONS/PLAN 1. Primary hypertension - POCT EKG 2. Palpitations - POCT EKG - Holter Monitor 3 - 5 Days (In Office); Future 3. Cardiomyopathy, hypertrophic (CMS-HCC) 4. LVH (left ventricular hypertrophy) 5. GENET (obstructive sleep apnea) Probable genotype negative HCM with Asymmetric septal hypertrophy with thickness of 2 cm on echo, and without LVOT obstruction. Scattered LGE low burden Chronic mild elevation of high sensitivity troponin 35- 55 Essential hypertension Diabetes mellitus type 2 Ascending aortic aneurysm at the level of the sinuses of Valsalva 42 mm on echo from 12/1624 Syncopal episode 4 years ago Palpitations benign monitor in 2023 CML follows at [facility] Obesity Obstructive sleep apnea not compliant with CPAP Recent left shoulder surgery with residual left shoulder pain -- there is a discrepancy between clear asymmetric septal thickness on multiple TTE and MRI ! This needs to be repeated and reviewed with advanced cardiology kier hand in the future -- patient has a overall low risk for sudden cardiac , add still get a monitor with reported intermittent heart palpitation although he drinks up to 4 large cups of coffee a day. We did discuss importance of decreasing caffeine intake and compliance with CPAP -- his blood pressure is above goal tells me that he did not take his blood pressure medication yetinstructed to check it at home may need up titration of his lisinopril or addition of beta christina -- if he is still has cough complaint next visit I will probably switch his lisinopril to Arb Otherwise patient is stable from cardiovascular standpoint has no other symptoms. He will [facility] Jesus Manuel COELLO MD 02/18/25 8:24 AM TODAYS ORDERS Orders Placed This Encounter Procedures Holter Monitor 3 - 5 Days (In Office) POCT EKG FOLLOW UP Return in about 6 months (around 08/18/2025). PCP: FANNY RAMÍREZ Referring Physician: Buffy Chung APRN-DOMINIC [address] [place] [address] * Manuela Odom RN - 02/18/2025 8:00 AM EDT Pt scheduled for Holter in office. Instructions reviewed with pt. documented in this encounter Plan of Treatment Upcoming Encounters Date Type Department Care Team (Late st Contact Info) Description 02/25/2025 3:00 PM EDT Appointment [facility] - Cardiovascular [address] [place] [address] Mal Coello MD [address] [place] [address] Scheduled Orders Name Type Priority Associated Diagnoses Orde r Schedule Holter monitor 3-5 days Cardiac Services Routine Palpitations Expected: 02/18/2025, Expires: 02/18/2026 documented as of this encounter Procedures Procedure Name Priority Date/Time Associated Diagnosis Comments POCT EKG Routine 02/18/2025 Primary hypertension Palpitations documented in this encounter Results * POCT EKG (02/18/2025) 02/18/2025 us Mal Coello MD ECG ORDERABLES Final Result MANUALLY TRANSCRIBED RESULTS documented in this encounter Visit Diagnoses Diagnosis Primary hypertension- Primary Unspecified essential hypertension Palpitations Cardiomyopathy, hypertrophic (CMS-HCC) LVH (left ventricular hypertrophy) Cardiomegaly GENET (obstructive sleep apnea) Obstructive sleep apnea (adult) (pediatric) Atrial flutter (CMS-HCC) Tachycardia Unspecified tachycardia Nonrheumatic pulmonary valve stenosis Essential hypertension Unspecified essential hypertension documented in this encounter Care Teams Electrotype Servicer Relationship Specialty Start Date End Date Buffy Chung, COST CONTROL SUPERVISOR-PHYSICIAN PRACTICE CONSULTANT PCP - General Nurse Practitioner 05/19/24 documented as of this encounter
--- OUTSIDE RECORDS SUMMARY | 2025-02-18 11:43 | XMS_ITS | Encounter Summary ---
Author Organization [facility] Address [facility] [place] [address] Care Team Providers Care Blueprinting And Photocopy Supervisor Name Role Phone Aman Mathias MD Primary Care Provider [phone] Paula Tuttle RN Unavailable [facility] William Clemons MD, PhD Unavailable [phone] Aman Mathias MD Primary Care Provider [phone] Buffy Chung CNP Primary Care Provider [phone] Source Comments In the event this information is protected by the Federal Confidentiality of Alcohol and Drug AbusePatient Records regulations: The Federal rules restrict any use of the information to criminally investigate or prosecute any alcohol or drug abuse patient.[facility] Encounter Details Date Type Department Care Team (Late st Contact Info) Description 06/07/2021 Patient Msg [facility] [address] [place] [address] Provider, Ccf Pre procedure instructions 06/15 Social History Tobacco Use Types Packs/Day Years Used Date Smoking Tobacco: Never Smokeless Tobacco: Never Alcohol Use Standard Drinks/Week Comments Yes 0 (1 standard drink = 0.6 oz pur e alcohol) socially PHQ-2 Answer Date Recorded PHQ-2 score 1 06/11/2021 Area Deprivation Index Answer Date Juarez rded National Score (1-100), lower number is lower ri sk Not on file 05/15/2020 State Score (1-10), lower number is lower risk N ot on file 05/15/2020 Data from: https://www.neighborhoodatlas.medicine.[facility]/. Last address used for calculation Not on file 05/15/2020 Sex and Gender Information Value Date Recorded Sex Assigned at Not on file Legal Sex Male 10:16 AM EST Gender Identity Not on file Sexual Orientation Not on file COVID-19 Exposure Response Date Recorded In the last month, have you been in contact with someone who was confirmed or suspected to have Coronavirus / COVID-19? No / Unsure 06/07/2021 11:59 AM EST documented as of this encounter Functional Status * Are you deaf or do you have serious difficulty hearing? Answer Date of Assessment Author No 11/23/2014 3:20 PM Bety Patton RN * Are you blind or do you have serious difficulty seeing, even when wearing glasses? Answer Date of Assessment Author No 11/23/2014 3:20 PM Bety Patton RN * Do you have serious difficulty walking or climbing stairs? Answer Date of Assessment Author No 11/23/2014 3:20 PM Bety Patton RN * Do you have difficulty dressing or bathing? Answer Date of Assessment Author No 11/23/2014 3:20 PM Bety Patton RN * Because of a physical, mental, or emotional condition, do you have difficulty doing errands alone such as visiting a doctor's office or shopping? Answer Date of Assessment Author No 11/23/2014 3:20 PM Bety Patton RN documented as of this encounter Mental Status * Because of a physical, mental, or emotional condition, do you have serious difficulty concentrating, remembering, or making decisions? Answer Entry Date Author No 11/23/2014 3:20 PM Bety Patton RN documented in this encounter Plan of Treatment Not on file documented as of this encounter Visit Diagnoses Not on filedocumented in this encounter Care Teams Blueprinting And Photocopy Supervisor Relationship Specialty Start Date End Date Aman Mathias MD [address] [place] [address] PCP - General Family Medicine 05/01/20 09/02/21 Aman Mathias MD [address] [place], [place] [id number] PCP - General Family Medicine 09/03/21 09/14/23 Buffy Chung, INSPECTOR GOVERNMENT PROPERTY [address] [place], [place] [id number] PCP - General Family Medicine 09/15/23 Paula Tuttle, RN [address] [place] [address] Research Nurse Hematology/Oncology 06/05/20 [place] [address] [place] [address] Physician Hematology/Oncology 06/05/20 documented as of this encounter
--- OUTSIDE RECORDS SUMMARY | 2025-02-18 11:43 | XMS_ITS | Encounter Summary ---
Author Organization [facility] Address [address] [place] [address] Care Team Providers Care Grooming Assistant Name Role Phone Paula Tuttle RN Unavailable UnavailWilliam Goncalves MD, PhD Unavailable [phone] Aman Mathias MD Primary Care Provider [phone] Buffy Chung CNP Primary Care Provider [phone] Source Comments In the event this information is protected by the Federal Confidentiality of Alcohol and Drug AbusePatient Records regulations: The Federal rules restrict any use of the information to criminally investigate or prosecute any alcohol or drug abuse patient.[facility] Encounter Details Date Type Department Care Team (Late st Contact Info) Description 11/23/2021 Patient Msg [address] [place] [address] Provider, Ccbeena Pre procedure instructions 11/29 Social History Tobacco Use Types Packs/Day Years Used Date Smoking Tobacco: Never Smokeless Tobacco: Never Alcohol Use Standard Drinks/Week Comments Yes 0 (1 standard drink = 0.6 oz pur e alcohol) socially PHQ-2 Answer Date Recorded PHQ-2 score 1 06/11/2021 Area Deprivation Index Answer Date Juarez rded National Score (1-100), lower number is lower ri sk 90 11/26/2021 State Score (1-10), lower number is lower risk N ot on file 11/26/2021 Data from: https://www.neighborhoodatlas.medicine.[facility]/. Last address used for calculation [address] 11/26/2021 Sex and Gender Information Value Date Recorded Sex Assigned at Not on file Legal Sex Male 10:16 AM EST Gender Identity Not on file Sexual Orientation Not on file COVID-19 Exposure Response Date Recorded In the last 10 days, have yo u been in contact with someone who was confirmed or suspected to have Coronavirus/COVID-19? No / Unsure 11/26/2021 8:43 AM EDT documented as of this encounter Functional Status * Are you deaf or do you have serious difficulty hearing? Answer Date of Assessment Author No 11/23/2014 3:20 PM EDT Bety Kumar RN * Are you blind or do you have serious difficulty seeing, even when wearing glasses? Answer Date of Assessment Author No 11/23/2014 3:20 PM EDT Bety Kumar RN * Do you have serious difficulty walking or climbing stairs? Answer Date of Assessment Author No 11/23/2014 3:20 PM EDT Bety Kumar RN * Do you have difficulty dressing or bathing? Answer Date of Assessment Author No 11/23/2014 3:20 PM EDT Bety Kumar RN * Because of a physical, mental, or emotional condition, do you have difficulty doing errands alone such as visiting a doctor's office or shopping? Answer Date of Assessment Author No 11/23/2014 3:20 PM EDT Bety Kumar RN documented as of this encounter Mental Status * Because of a physical, mental, or emotional condition, do you have serious difficulty concentrating, remembering, or making decisions? Answer Entry Date Author No 11/23/2014 3:20 PM EDT Bety Kumar RN documented in this encounter Plan of Treatment Not on file documented as of this encounter Visit Diagnoses Not on filedocumented in this encounter Care Teams Grooming Assistant Relationship Specialty Start Date End Date Aman Mathias MD [address] [place] [address] PCP - General Family Medicine 09/03/21 09/14/23 Buffy Chung, CLINICAL CYTOGENETICS DIRECTOR [address] [place], [place] [id number] PCP - General Family Medicine 09/15/23 Paula Tuttle, RN [address] [place] [address] Research Nurse Hematology/Oncology 06/05/20 [place] [address] [place] [address] Physician Hematology/Oncology 06/05/20 documented as of this encounter
--- OUTSIDE RECORDS SUMMARY | 2025-02-18 11:43 | XMS_ITS | Clinical Summary ---
Author Organization [facility] Address [address] [place] [address] Care Team Providers Care Production Roustabout Name Role Phone Unavailable Primary Care Provider Unavailabl e Allergies No known active allergies Medications lisinopril 20 mg tablet Take 20 mg by mouth in the morning. 3 Active pravastatin (Pravachol) 40 mg tablet Take 40 mg by mouth in the morning. 3 Active insulin lispro (HumaLOG) 100 unit/mL injection Inject 10 units with breakfast and lunch and 18 units with dinner plus sliding scale (Max daily dose of 74 units daily) 3 Active Lantus Solostar U-100 Insulin 100 unit/mL (3 mL) pen ADMINISTER 30 UNITS UNDER THE SKIN TWICE DAILY. START WITH 27 UNITS 2 TIMES A DAY 3 Active Active Problems Problem Noted Date Diagnosed Date Rash 07/15/2017 Chronic myeloid leukemia, BC R/ABL-positive, not having achieved remission 04/06/2012 Social History Tobacco Use Types Packs/Day Years Used Date Smoking Tobacco: Never Smokeless Tobacco: Never Tobacco Cessation:Counseling Given: Not Answered Alcohol Use Standard Drinks/Week Comments Yes 0 (1 standard drink = 0.6 oz pur e alcohol) occassionaly [place] Safety & Environment Answer Date Rec orded Fear of Current or Ex-Partner Not on file Emotionally Abused Not on file 07/31/2023 Physically Abused Not on file 07/31/2023 Sexually Abused Not on file 07/31/2023 Physically or Sexually Abused Not on file Sex and Gender Information Value Date Recorded Sex Assigned at Not on file Legal Sex Male 11:53 PM EDT Gender Identity Not on file Sexual Orientation Not on file Last Filed Vital Signs Vital Sign Reading Time Taken Comments Blood Pressure - - Pulse - - Temperature - - Respiratory Rate - - Oxygen Saturation - - Inhaled Oxygen Concentration - - Weight 123 kg (272 lb) 10/16/2022 2:42 PM EDT Height 177.8 cm (5' 10 ) 10/16/2022 2:42 PM EDT Body Mass Index 39.03 10/16/2022 2:42 PM EDT Plan of Treatment Health Maintenance Due Date Last Done Comments CT Colonography 1968 Colonoscopy 1968 Colorectal Cancer Screening 1970 FIT-DNA 1968 FIT 1970 FOBT 1970 Sigmoidoscopy 1968 COVID-19 Vaccine (#1) 1973 Depression Screening 1980 Hepatitis B Vaccines (1 of 3 - 19+ 3-dose series) 09/26/1987 Zoster Vaccines (1 of 2) 09/26/1987 Pneumococcal Vaccine: Pediatrics (0 to 5 Years) and At-Risk Patients (6 to 64 Years) (2 of 2 - PPSV23, PCV20, or PCV21) 07/15/2017 05/20/2017 Adult Tetanus 12/16/2020 12/16/2010 Influenza Vaccine (#1) 2025 8, 05/21/2017, 07/19/2016, Additional history exists HIB Vaccines Aged Out No longer eligi ble based on patient's age to complete this topic HPV Vaccines Aged Out No longer eligi ble based on patient's age to complete this topic IPV Vaccines Aged Out No longer eligi ble based on patient's age to complete this topic Meningococcal B Vaccine Aged Out No l onger eligible based on patient's age to complete this topic Meningococcal Vaccine Aged Out No melania bety eligible based on patient's age to complete this topic Rotavirus Vaccines Aged Out No longer eligible based on patient's age to complete this topic Insurance [facility] MEDICAID [place] [place] [id number]
--- OUTSIDE RECORDS SUMMARY | 2025-02-18 11:43 | XMS_ITS | Encounter Summary ---
Author Organization [facility] Address [facility] [place] [address] Care Team Providers Care Plastic Sheets Supervisor Name Role Phone Paula Tuttle RN Unavailable UnavailWilliam Goncalves MD, PhD Unavailable [phone] Aman Mathias MD Primary Care Provider [phone] Buffy Chung CNP Primary Care Provider [phone] Source Comments In the event this information is protected by the Federal Confidentiality of Alcohol and Drug AbusePatient Records regulations: The Federal rules restrict any use of the information to criminally investigate or prosecute any alcohol or drug abuse patient.[facility] Encounter Details Date Type Department Care Team (Late st Contact Info) Description 05/09/2022 Patient Msg Angio [address] [place] [address] Provider, Ccf Instructions for bone marrow biopsy scheduled on 05/16/22 Social History Tobacco Use Types Packs/Day Years [...] N ot on file 11/26/2021 Data from: https://www.neighborhoodatlas.medicine.[facility]/. Last address used for calculation [address] [...] suspected to have Coronavirus/COVID-19? No / Unsure 05/03/2022 12:20 PM EST documented as of this encounter Functional [...] on filedocumented in this encounter Care Teams Plastic Sheets Supervisor Relationship Specialty Start Date End Date Aman Mathias MD [address] [place] [address] PCP - General Family Medicine 09/03/21 09/14/23 Buffy Chung, CONSULTANT INTERN [address] [place] [address] PCP - General Family Medicine 09/15/23 Paula Tuttle, RN [address] [place] [address] Research Nurse Hematology/Oncology 06/05/20 [place] [address] [place] [address] Physician Hematology/Oncology 06/05/20 documented as of this encounter
--- OUTSIDE RECORDS SUMMARY | 2025-02-18 11:43 | XMS_ITS | Encounter Summary ---
Author Organization [facility] Address [facility] [place] [address] Care Team Providers Care Mechanic Marine Engine Name Role Phone Paula Tuttle RN Unavailable UnavailWilliam Goncalves MD, PhD Unavailable [phone] Buffy Chung CNP Primary Care Provider [phone] Source Comments In the event this information is protected by the Federal Confidentiality of Alcohol and Drug AbusePatient Records regulations: The Federal rules restrict any use of the information to criminally investigate or prosecute any alcohol or drug abuse patient.[facility] Encounter Details Date Type Department Care Team (Late st Contact Info) Description 09/02/2024 Patient Msg Angio [address] [place] [address] Provider, Luis M Pre procedure instructions 09/10 Social History Tobacco Use Types Packs/Day Years Used Date Smoking Tobacco: Never Smokeless Tobacco: Never Alcohol Use Standard Drinks/Week Comments Yes 0 (1 standard drink = 0.6 oz pur e alcohol) socially PHQ-2 Answer Date Recorded PHQ-2 score 1 06/11/2021 Area Deprivation Index Answer Date Juarez rded National Score (1-100), lower number is lower ri sk 92 04/16/2024 State Score (1-10), lower number is lower risk 9 04/16/2024 Data from: https://www.neighborhoodatlas.medicine.[facility]/. Last address used for calculation [address] 04/16/2024 Sex and Gender Information Value Date Recorded Sex Assigned at Not on file Legal Sex Male 10:16 AM EST Gender Identity Not on file Sexual Orientation Not on file documented as of this encounter Functional Status [...] of Assessment Author No 11/23/2014 3:20 PM FARIHAT Bety Kumar RN * Because of a [...] on filedocumented in this encounter Care Teams Mechanic Marine Engine Relationship Specialty Start Date End Date Buffy Chung, CLAIM ADMINISTRATOR [address] [place] [address] PCP - General Family Medicine 09/15/23 Paula Tuttle, RN [address] [place] [address] Research Nurse Hematology/Oncology 06/05/20 [place] [address] [place] [address] Physician Hematology/Oncology 06/05/20 documented as of this encounter
--- OUTSIDE RECORDS SUMMARY | 2025-02-18 11:44 | XMS_ITS | Encounter Summary ---
Author Organization [facility] Address [address] [place] [address] Care Team Providers Care Flyer Maker Name Role Phone William Cavazos MD, PhD Unavailable [phone] Karl Gonzalez DO Primary Care Provider Paula Tuttle RN Unavailable UnavailIsrael Armstrong RN Unavailable Unavailable Aman Mathias MD Primary Care Provider [phone] Paula Tuttle RN Unavailable UnavailWilliam Goncalves MD, PhD Unavailable [phone] Aman Mathias MD Primary Care Provider [phone] Buffy Chung CNP Primary Care Provider [phone] Source Comments In the event this information is protected by the Federal Confidentiality of Alcohol and Drug AbusePatient Records regulations: The Federal rules restrict any use of the information to criminally investigate or prosecute any alcohol or drug abuse patient.[facility] Encounter Details Date Type Department Care Team (Late st Contact Info) Description 08/10/2019 Patient Msg Angio [address] [place] [address] Provider, Ccf Pre procedure instructions 08/15 Social History Tobacco Use Types Packs/Day Years Used Date Smoking Tobacco: Never Smokeless Tobacco: Never Alcohol Use Standard Drinks/Week Comments Yes 0 (1 standard drink = 0.6 oz pur e alcohol) socially PHQ-2 Answer Date Recorded PHQ-2 Score 1 04/19/2019 Sex and Gender Information Value Date Recorded Sex Assigned at Not on file Legal Sex Male 10:16 AM EST Gender Identity Not on file Sexual Orientation Not on file documented as of this encounter Functional Status * Are you deaf or do you have serious difficulty hearing? Answer Date of Assessment Author No 11/23/2014 3:20 PM EDBety Land RN * Are you blind or do you have serious difficulty seeing, even when wearing glasses? Answer Date of Assessment Author No 11/23/2014 3:20 PM Bety Patton RN * Do you have serious difficulty walking or climbing stairs? Answer Date of Assessment Author No 11/23/2014 3:20 PM EDBety Land RN * Do you have difficulty dressing [...] on filedocumented in this encounter Care Teams Flyer Maker Relationship Specialty Start Date End Date Karl Gonzalez DO [address] [facility] [place] [address] PCP - General Family Medicine 03/12/16 04/30/20 Aman Mathias MD [address] [place] [address] PCP - General Family Medicine 05/01/20 09/02/21 Aman Mathias MD [address] [place] [address] PCP - General Family Medicine 09/03/21 09/14/23 Buffy Chung, BAKER HELPER [address] [place] [address] PCP - General Family Medicine 09/15/23 William Cavazos MD, PhD [address] [place] [id number] Physician Hematology/Oncology 11/29/14 04/30/20 Paula Tuttle, MOISÉS [address] [place] [address] Research Nurse Hematology/Oncology 05/19/17 01/31/20 Israel Hanson, RN Specialty Field Auto Appraiser Hematology/Oncology 03/10/20 04/30/20 Paula Tuttle, MOISÉS [address] [place] [address] Research Nurse Hematology/Oncology 06/05/20 [place] [address] [place] [id number] Physician Hematology/Oncology 06/05/20 documented as of this encounter
--- OUTSIDE RECORDS SUMMARY | 2025-02-18 11:44 | XMS_ITS | Encounter Summary ---
Author Organization [facility] Address [address] [place] [address] Care Team Providers Care Low Emission Automobile Designer Name Role Phone William Cavazos MD, PhD Unavailable [phone] Karl Gonzalez DO Primary Care Provider Paula Tuttle RN Unavailable UnavailIsrael Armstrong RN Unavailable Unavailable Aman Mathias MD Primary Care Provider [phone] Paula Tuttle RN Unavailable UnavailWilliam Goncalves MD, PhD Unavailable [phone] Aman Mathias MD Primary Care Provider [phone] Buffy Chung CNP Primary Care Provider [phone] Source Comments In the event this information is protected by the Federal Confidentiality of Alcohol and Drug AbusePatient Records regulations: The Federal rules restrict any use of the information to criminally investigate or prosecute any alcohol or drug abuse patient.[facility] Encounter Details Date Type Department Care Team (Late st Contact Info) Description 02/28/2019 Get Medical Advice Hematology/Oncology [address] [place] [address] Shanti Dennis APRN.ROLL UP MACHINE OPERATOR [address] [place] [address] RE: Upcoming Appointment Question Social History Tobacco Use Types Packs/Day Years Used Date Smoking Tobacco: Never Smokeless Tobacco: Never Alcohol Use Standard Drinks/Week Comments Yes 0 (1 standard drink = 0.6 oz pur e alcohol) socially Sex and Gender Information Value Date Recorded [...] on filedocumented in this encounter Care Teams Low Emission Automobile Designer Relationship Specialty Start Date End Date Karl Gonzalez DO [address] [place] [address] PCP - General Family Medicine 03/12/16 04/30/20 Aman Mathias MD [address] [place] [address] PCP - General Family Medicine 05/01/20 09/02/21 Aman Mathias MD [address] [place] [address] PCP - General Family Medicine 09/03/21 09/14/23 Buffy Chung, QUALITY COORDINATOR [address] [place] [address] PCP - General Family Medicine 09/15/23 William Cavazos MD, PhD [address] [place] [address] Physician Hematology/Oncology 11/29/14 04/30/20 Paula Tuttle, RN [address] [place] [address] Research Nurse Hematology/Oncology 05/19/17 01/31/20 Israel Hanson RN Specialty Melting Operator Hematology/Oncology 03/10/20 04/30/20 Paula Tuttle, RN [address] [place] [address] Research Nurse Hematology/Oncology 06/05/20 [place] [address] [place] [address] Physician Hematology/Oncology 06/05/20 documented as of this encounter
--- OUTSIDE RECORDS SUMMARY | 2025-02-18 11:44 | XMS_ITS | Encounter Summary ---
Author Organization [facility] Address [facility] [place] [address] Care Team Providers Care Blood Bank Supervisor Name Role Phone Aman Mathias MD Primary Care Provider [phone] Paula Tuttle RN Unavailable [facility] William Clemons MD, PhD Unavailable [phone] Aman Mathias MD Primary Care Provider [phone] Buffy Chung CNP Primary Care Provider [phone] Source Comments In the event this information is protected by the Federal Confidentiality of Alcohol and Drug AbusePatient Records regulations: The Federal rules restrict any use of the information to criminally investigate or prosecute any alcohol or drug abuse patient.[facility] Encounter Details Date Type Department Care Team (Late st Contact Info) Description 12/13/2020 Patient Msg Angio [address] [place] [address] Provider, Ccf Pre procedure instructions 12/22 Social History Tobacco Use Types Packs/Day Years Used Date Smoking Tobacco: Never Smokeless Tobacco: Never Alcohol Use Standard Drinks/Week Comments Yes 0 (1 standard drink = 0.6 oz pur e alcohol) socially PHQ-2 Answer Date Recorded PHQ-2 score 0 11/23/2020 Area Deprivation Index Answer Date Juarez rded National Score (1-100), lower number is lower ri sk Not on file 05/15/2020 State Score (1-10), lower number is lower risk N ot on file 05/15/2020 Data from: https://www.neighborhoodatlas.medicine.[facility]/. Last address used for calculation Not on [...] have Coronavirus / COVID-19? No / Unsure 11/29/2020 8:17 AM EDT documented as of this encounter [...] Entry Date Author No 11/23/2014 3:20 PM FARIHAT Bety Kumar RN documented in this encounter Plan of Treatment Not on file documented as of this encounter Visit Diagnoses Not on filedocumented in this encounter Care Teams Blood Bank Supervisor Relationship Specialty Start Date End Date Aman Mathias MD [address] [place] [address] PCP - General Family Medicine 05/01/20 09/02/21 Aman Mathias MD [address] [place], [place] [address] PCP - General Family Medicine 09/03/21 09/14/23 Buffy Chung, DELICATE FABRICS PRESSER [address] [place], [place] [address] PCP - General Family Medicine 09/15/23 Paula Tuttle, MOISÉS [address] [place] [address] Research Nurse Hematology/Oncology 06/05/20 [place] [address] [place] [address] Physician Hematology/Oncology 06/05/20 documented as of this encounter
--- OUTSIDE RECORDS SUMMARY | 2025-02-18 11:44 | XMS_ITS | Encounter Summary ---
Author Organization [facility] Address [address] [place] [address] Care Team Providers Care Zoo Veterinarian Name Role Phone Aman Mathias MD Primary Care Provider [phone] Buffy Chung SIFTING OPERATOR Unavailable [phone] Unallocated, Noms Provider Primary Care Provi hal Aman Mathias MD Primary Care Provider [phone] Encounter Details Date Type Department Care Team (Late st Contact Info) Description 09/12/2023 [facility] Only [facility] [address] [facility] [address] [place] [address] Roman Iyer MD [address] [place] [id number] Social History Tobacco Use Types Packs/Day Years Used Date Smoking Tobacco: Never Smokeless Tobacco: Never Alcohol Use Standard Drinks/Week Comments Not Currently 0 (1 standard drink = 0.6 oz pur e alcohol) PHQ-2 Answer Date Recorded Patient Health Questionnaire-2 Score 0 08/07/2023 Sex and Gender Information Value Date Recorded Sex Assigned at Not on file Legal Sex Male 7:02 PM EDT Gender Identity Not on file Sexual Orientation Not on file documented as of this encounter Plan of Treatment Upcoming Encounters Date Type Department Care Team (Late st Contact Info) Description 02/22/2025 3:00 PM EDT Treatment [facility] [address] [place] [phone] Melisa Rocha PTA [address] [place] [address] 02/24/2025 3:00 PM EDT Treatment [facility] [address] [place] [address] Melisa Rocha, ADULT BASIC EDUCATION TEACHER [address] [place], [place] [address] 07/25/2025 8:15 AM EST Office Visit [facility] [address] [facility] [place] [address] Yaniv Thompson, SIFTING OPERATOR [address] [place], [place] [id number] documented as of this encounter Procedures Procedure Name Priority Date/Time Associated Diagnosis Comments XR FOOT 3+ VIEWS RIGHT Routine 09/11/2023 8:16 AM EDT documented in this encounter Results * XR foot 3+ views right (09/11/2023 8:16 AM EDT) Anatomical Region Laterality Modality Lower Extremities, Foot Right Radiogra phic Imaging us Roman Iyer MD IMG XR PROCEDURES Final Res ult documented in this encounter Visit Diagnoses Not on filedocumented in this encounter Care Teams Zoo Veterinarian Relationship Specialty Start Date End Date Aman Mathias MD PCP - General Family Medicine 08/07/23 03/30/24 Unallocated, Aguilar Mena MD [address] [place] [address] PCP - General Family Medicine 03/31/24 04/07/24 Aman Mathias MD PCP - General Family Medicine 04/08/24 Buffy Chung NP Nurse Practitioner Family Medicine 08/07/23 documented as of this encounter
--- OUTSIDE RECORDS SUMMARY | 2025-02-18 11:44 | XMS_ITS | Encounter Summary ---
Author Organization [facility] Address [address] [place] [address] Care Team Providers Care Apple Picker Name Role Phone Aman Mathias MD Primary Care Provider [phone] Aman Mathias MD Primary Care Provider [phone] Buffy Chung LEATHERSMITH Unavailable [phone] Unallocated, Noms Provider Primary Care Provi hal Aman Mathias MD Primary Care Provider [phone] Encounter Details Date Type Department Care Team (Late Contact Info) Description 03/10/2023 [facility] [address] [place] [address] Jr. Kapil Kilpatrick, DO [address] [facility] [address] [place], [place] [id number] Social History Tobacco Use Types Packs/Day Years Used Date Smoking Tobacco: Never Smokeless Tobacco: Never Alcohol Use Standard Drinks/Week Comments Not Currently 0 (1 standard drink = 0.6 oz pur e alcohol) Sex and Gender Information Value Date Recorded Sex Assigned at Not on file Legal Sex Male 7:02 PM EDT Gender Identity Not on file Sexual Orientation Not on file documented as of this encounter Plan of Treatment Upcoming Encounters Date Type Department Care Team (Late Contact Info) Description 02/22/2025 3:00 PM EDT [facility] [address] [place] [address] Melisa Rocha PTA [address] [place] [address] 02/24/2025 3:00 PM EDT [facility] [place] [address] [place] [phone] Melisa Rocha, COMMUNITY HEALTH AGENT [address] [place], [place] [id number] 07/25/2025 8:15 AM EST Office Visit [facility] [place] [facility] [address] [place] [address] Yaniv Thompson, LEATHERSMITH [address] [place], [place] [phone] documented as of this encounter Visit Diagnoses Not on filedocumented in this encounter Care Teams Apple Picker Relationship Specialty Start Date End Date Aman Mathias MD PCP - General Family Medicine 11/27/22 08/06/23 Aman Mathias MD PCP - General Family Medicine 08/07/23 03/30/24 Unallocated, Miguel Ángel Mena MD [address] [place] [address] PCP - General Family Medicine 03/31/24 04/07/24 Aman Mathias MD PCP - General Family Medicine 04/08/24 Buffy Chung NP Nurse Practitioner Family Medicine 08/07/23 documented as of this encounter
--- OUTSIDE RECORDS SUMMARY | 2025-02-18 11:44 | XMS_ITS | Encounter Summary ---
Author Organization [facility] Address [address] [place] [address] Care Team Providers Care Desktop Support Engineer Name Role Phone Paula Tuttle RN Unavailable UnavailWilliam Goncalves MD, PhD Unavailable [phone] Aman Mathias MD Primary Care Provider [phone] Buffy Chung CNP Primary Care Provider [phone] Source Comments In the event this information is protected by the Federal Confidentiality of Alcohol and Drug AbusePatient Records regulations: The Federal rules restrict any use of the information to criminally investigate or prosecute any alcohol or drug abuse patient.[facility] Encounter Details Date Type Department Care Team (Late st Contact Info) Description 07/01/2023 Patient Msg Cardiology [address] [place] [address] Provider, Luis M Appointment Cancellation Request Social History Tobacco Use Types Packs/Day Years Used Date Smoking Tobacco: Never Smokeless Tobacco: Never Alcohol Use Standard Drinks/Week Comments Yes 0 (1 standard drink = 0.6 oz pur e alcohol) socially PHQ-2 Answer Date Recorded PHQ-2 score 1 06/11/2021 Area Deprivation Index Answer Date Juarez rded National Score (1-100), lower number is lower ri sk 83 10/15/2022 State Score (1-10), lower number is lower risk 7 10/15/2022 Data from: https://www.neighborhoodatlas.medicine.[facility]/. Last address used for calculation [address] 10/15/2022 Sex and Gender Information Value Date Recorded [...] on filedocumented in this encounter Care Teams Desktop Support Engineer Relationship Specialty Start Date End Date Aman Mathias MD [address] [place] [address] PCP - General Family Medicine 09/03/21 09/14/23 Buffy Chung, RADIOLOGY INTERVENTIONAL PHYSICIAN [address] [place] [address] PCP - General Family Medicine 09/15/23 Paula Tuttle, MOISÉS [address] [place] [address] Research Nurse Hematology/Oncology 06/05/20 [place] [address] [place] [address] Physician Hematology/Oncology 06/05/20 documented as of this encounter
--- OUTSIDE RECORDS SUMMARY | 2025-02-18 11:44 | XMS_ITS | Encounter Summary ---
Author Organization [facility] Address [address] [place] [address] Care Team Providers Care Charger Operator Name Role Phone Aman Mathias MD Primary Care Provider [phone] Aman Mathias MD Primary Care Provider [phone] Buffy Chung MARKETING AND OUTREACH COORDINATOR Unavailable [phone] Unallocated, Noms Provider Primary Care Provi hal Aman Mathias MD Primary Care Provider [phone] Reason for Visit * Reason Comments Med Refill Encounter Details Date Type Department Care Team (Late st Contact Info) Description 07/27/2023 Refill [facility] [address] [place] [address] Buffy Chung NP [address] [place] [address] Social History Tobacco Use Types Packs/Day Years [...] on file documented as of this encounter Miscellaneous Notes * Telephone Encounter - Buffy Chung NP - 08/06/2023 5:00 PM EST Dose is changed documented in this encounter Plan of Treatment Upcoming Encounters Date Type Department Care Team (Late st Contact Info) Description 02/22/2025 3:00 PM EDT Treatment [facility] [address] [place] [address] Melisa Rocha, COUNTER CLERK [employer]S [address] [place] [address] 02/24/2025 3:00 PM EDT Treatment [facility] [address] [place] [address] Melisa Rocha, COUNTER CLERK [employer] [address] [place] [address] 07/25/2025 8:15 AM EST Office Visit [facility] [address] [place] [address] Yaniv Thompson, YANE [address] [place] [address] documented as of this encounter Visit Diagnoses Not on filedocumented in this encounter Care Teams Charger Operator Relationship Specialty Start Date End Date Aman Mathias MD PCP - General Family Medicine 11/27/22 08/06/23 Aman Mathias MD PCP - General Family Medicine 08/07/23 03/30/24 Unallocated, Aguilar Mena MD [address] [place] [address] PCP - General Family Medicine 03/31/24 04/07/24 Aman Mathias MD PCP - General Family Medicine 04/08/24 Buffy Chung NP Nurse Practitioner Family Medicine 08/07/23 documented as of this encounter
--- OUTSIDE RECORDS SUMMARY | 2025-02-18 11:44 | XMS_ITS | Encounter Summary ---
Author Organization [facility] Address [address] [place] [place] [address] Care Team Providers Care Mulling Machine Operator Name Role Phone Aman Mathias MD Primary Care Provider [phone] Aman Mathias MD Primary Care Provider [phone] Buffy Chung [employer] NURSING DIRECTOR Unavailable [phone] Unallocated, Noms Provider Primary Care Provi hal Aman Mathias MD Primary Care Provider [phone] Encounter Details Date Type Department Care Team (Late st Contact Info) Description 07/09/2023 Clinisync Result Encounter [facility] External Department Unsolicited Provider, Generic External Data Social History Tobacco Use Types Packs/Day Years [...] Info) Description 02/22/2025 3:00 PM EDT Treatment [facility] [address] [place] [phone] Melisa Rocha PTA [address] [place] [address] 02/24/2025 3:00 PM EDT Treatment [facility] [address] [place] [address] Melisa Rocha PTA [address] [place], [place] [id number] 07/25/2025 8:15 AM EST Office [facility] [address] [place] [address] Yaniv Thompson, [employer] NURSING DIRECTOR [address] [place] [address] documented as of this encounter Procedures Procedure Name Priority Date/Time Associated Diagnosis Comments ECG01 07/09/2023 3:26 PM EST documented in this encounter Results * ECG01 (07/09/2023 3:26 PM EST) Anatomical Region Laterality Modality Other 07/09/2023 3:26 PM EST Narrative 07/25/2023 3:11 PM EST Ventricular Rate : 74 BPM Atrial Rate : 74 BPM P-R Interval : 154 ms QRS Duration : 92 ms Q-T Interval : 374 ms QTC Calculation(Bazett) : 415 ms Calculated P [place] : 15 degrees Calculated R [place] : 27 degrees Calculated T [place] : 17 degrees NORMAL SINUS RHYTHM NORMAL ECG Confirmed by ZACHARY SAMS MD ([id number]) on 07/25/2023 3:10:59 PM NAME : RENÉZACHARY PID : [id number] : 1970 Gender : Male Race : ORD : Procedure Date : Jul 09 2023 15:26:01 Edit Date : Jul 25 2023 15:11:01 Diagnosis: NORMAL SINUS RHYTHM NORMAL ECG Confirmed by ZACHARY SAMS MD ([id number]) on 07/25/2023 3:10:59 PM Test Reason : Location : 117 : CA2RE Overread By : ZACHARY SAMS MD Edited By : ZACHARY SAMS MD Referred By : TYRONE HOWELL Acquired by : jayne coppola, Procedure Note Radiology, Radiologist, - 07/25/2023 Ventricular Rate : 74 BPM Atrial Rate : 74 BPM P-R Interval : 154 ms QRS Duration : 92 ms Q-T Interval : 374 ms QTC Calculation(Bazett) : 415 ms Calculated P [place] : 15 degrees Calculated R [place] : 27 degrees Calculated T [place] : 17 degrees NORMAL SINUS RHYTHM NORMAL ECG Confirmed by ZACHARY SAMS MD ([id number]) on 07/25/2023 3:10:59 PM NAME : ZACHARY MERRITT PID : [id number] : 1970 Gender : Male Race : ORD : Procedure Date : Jul 09 2023 15:26:01 Edit Date : Jul 25 2023 15:11:01 Diagnosis: NORMAL SINUS RHYTHM NORMAL ECG Confirmed by ZACHARY SAMS MD ([id number]) on 07/25/2023 3:10:59 PM Test Reason : Location : 117 : CA2RE Overread By : ZACHARY SAMS MD Edited By : ZACHARY SAMS MD Referred By : TYRONE HOWELL Acquired by : jayne coppola, us Generic External Data Provider [facility] Final Result documented in this encounter Visit Diagnoses Not on filedocumented in this encounter Care Teams Mulling Machine Operator Relationship Specialty Start Date End Date Aman Mathias MD PCP - General Family Medicine 11/27/22 08/06/23 Aman Mathias MD PCP - General Family Medicine 08/07/23 03/30/24 Unallocated, Aguilar Mena MD [address] [place] [address] PCP - General Family Medicine 03/31/24 04/07/24 Aman Mathias MD PCP - General Family Medicine 04/08/24 Buffy Chung NP Nurse Practitioner Family Medicine 08/07/23 documented as of this encounter
--- OUTSIDE RECORDS SUMMARY | 2025-02-18 11:44 | XMS_ITS | Encounter Summary ---
Author Organization [facility] Address [address] [place] [address] Care Team Providers Care Principal Military Analyst Name Role Phone Aman Mathias MD Primary Care Provider [phone] Buffy Chung GRANT COORDINATOR Unavailable [phone] Unallocated, Noms Provider Primary Care Provi hal Aman Mathias MD Primary Care Provider [phone] Encounter Details Date Type Department Care Team (Late st Contact Info) Description 10/14/2023 Orders Only [facility] [address] [place] [address] Buffy Chung, YANE [address] [place] [address] Social History Tobacco Use Types Packs/Day Years [...] as of this encounter Functional Status * Over the past 2 weeks, how often have you been bothered by any of the following problems? Question Answer Date of Assessment Author Little interest or pleasure in doing things Several days 10/14/2023 10:44 AM EDT Kisha Stevenson MA Feeling down, depressed, or hopeless Several days 10/14/2023 10:44 AM EDT Manolo Stevenson MA Patient Health Questionnaire-2 Score 2 10/14/2023 10:44 AM EDT Ginger Stevenson MA * If you checked off any problems on this questionnaire so far, Question Answer Date of Assessment Author How difficult have these problems made it for you to do your work, take care of things at home, or get along with other people? Not difficult at all 10/14/2023 10:44 AM EDT Naty Stevenson MA documented as of this encounter Plan of Treatment Upcoming Encounters Date Type Department Care Team (Late st Contact Info) Description 02/22/2025 3:00 PM EDT Treatment [facility] [address] [place] [address] Melisa Rocha, DIRECTOR OF HOME ECONOMICS [address] [facility] [place] [address] 02/24/2025 3:00 PM EDT Treatment [facility] [address] [facility] [address] Melisa Rocha, DIRECTOR OF HOME ECONOMICS [address] [place] [address] 07/25/2025 8:15 AM EST Office Visit [facility] [address] [place] [address] Yaniv Thompson, YANE [address] [facility] [place] [address] documented as of this encounter Procedures Procedure Name Priority Date/Time Associated Diagnosis Comments XR HAND 3+ VIEWS LEFT Routine 10/14/2023 12:59 PM EDT documented in this encounter Results * XR hand 3+ views left (10/14/2023 12:59 PM EDT) Anatomical Region Laterality Modality Upper Extremities, Hand Left Radiogra phic Imaging us Buffy Chung NP IMG XR PROCEDURES Final Result documented in this encounter Visit Diagnoses Not on filedocumented in this encounter Care Teams Principal Military Analyst Relationship Specialty Start Date End Date Amna Mathias MD PCP - General Family Medicine 08/07/23 03/30/24 Unallocated, Noms MD Rajesh [address] [place] [address] PCP - General Family Medicine 03/31/24 04/07/24 Aman Mathias MD PCP - General Family Medicine 04/08/24 Buffy Chung NP Nurse Practitioner Family Medicine 08/07/23 documented as of this encounter
--- OUTSIDE RECORDS SUMMARY | 2025-02-18 11:44 | XMS_ITS | Encounter Summary ---
Author Organization [facility] Address [address] [place] [address] Care Team Providers Care Etcher Apprentice Name Role Phone Buffy Chung NP Unavailable [phone] Aman Mathias MD Primary Care Provider Encounter Details Date Type Department Care Team (Latest Contact Info) Description 02/17/2025 Travel Social History Tobacco Use Types Packs/Day Years [...] Info) Description 02/22/2025 3:00 PM EDT Treatment [facility] [address] [place] [address] Melisa Rocha, FLAG FOOTBALL COACH [address] [place] [address] 02/24/2025 3:00 PM EDT Treatment [facility] [address] [facility] [address] Melisa Rocha, FLAG FOOTBALL COACH [address] [place] [address] 07/25/2025 8:15 AM EST Office Visit [facility] [address] [place] [address] Yaniv Thompson NP [address] [place], [place] [address] documented as of this encounter Visit Diagnoses Not on filedocumented in this encounter Care Teams Etcher Apprentice Relationship Specialty Start Date End Date Aman Mathias MD PCP - General Family Medicine 04/08/24 Buffy Chung NP Nurse Practitioner Family Medicine 08/07/23 documented as of this encounter
--- OUTSIDE RECORDS SUMMARY | 2025-02-18 11:44 | XMS_ITS ---
Author Organization [facility] Address [address] [place] [address] Care Team Providers Care Control Clerk Repairs Name Role Phone Paula Tuttle RN Unavailable Unavailabl e William Cavazos MD, PhD Unavailable [phone] Buffy Chung CNP Primary Care Provider [phone] Active Problems * This document contains information received from the source organization and may not represent a complete record from that organization. 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 Past Treatment and Therapy Plans NON-CHEMO 1 Plan Name Start Date Discontinue Date Treatment Medications Discontinue Reason Plan Provider Cycles AMB ADULT CRU ADMISSION ORDERS 06/19/2020 01/11/2022 No medications scheduled. Other William Cavazos MD, PhD 1 of 1 cycle started [facility] Plan Name Start Date Discontinue Date Treatment Medications Discontinue Reason Plan Provider Cycles ARIA 2915/15-87 5 COHORT A 7 05/18/2020 INV PONATinib (IRB ARIA 2915/15-875) Treatment Failure William Cavazos MD, PhD 10 of 10 cycles started
--- OUTSIDE RECORDS SUMMARY | 2025-02-18 11:44 | XMS_ITS | Encounter Summary ---
Author Organization [facility] Address [address] [place] [address] Care Team Providers Care Traveling Missionary Name Role Phone William Cavazos MD, PhD Unavailable [phone] Karl Gonzalez DO Primary Care Provider Paula Tuttle RN Unavailable UnavailIsrael Armstrong RN Unavailable Unavailable Aman Mathias MD Primary Care Provider [phone] Paula Tuttle RN Unavailable UnavailWilliam Goncalves MD, PhD Unavailable [phone] Aman Mathias MD Primary Care Provider [phone] Buffy Chung CNP Primary Care Provider [phone] Source Comments In the event this information is protected by the Federal Confidentiality of Alcohol and Drug AbusePatient Records regulations: The Federal rules restrict any use of the information to criminally investigate or prosecute any alcohol or drug abuse patient.[facility] Encounter Details Date Type Department Care Team (Late st Contact Info) Description 04/30/2019 Patient Msg [facility] [address] [place] [address] Provider, Ccf Pre procedure instructions Social History Tobacco Use Types Packs/Day Years [...] Assessment Author No 11/23/2014 3:20 PM Bety Patotn RN documented as of this encounter Mental Status * Because of a physical, mental, or emotional condition, do you have serious difficulty concentrating, remembering, or making decisions? Answer Entry Date Author No 11/23/2014 3:20 PM Bety Patton RN documented in this encounter Plan of Treatment Not on file documented as of this encounter Visit Diagnoses Not on filedocumented in this encounter Care Teams Traveling Missionary Relationship Specialty Start Date End Date aKrl Gonzalez DO [address] [place] [address] PCP - General Family Medicine 10/4/16 11/22/20 Aman Mathias MD [address] [place] [address] PCP - General Family Medicine 05/01/20 09/02/21 Aman Mathias MD [address] [place] [address] PCP - General Family Medicine 09/03/21 09/14/23 Buffy Chung, CORPORATE TRAVEL COUNSELOR [address] [place] [place] [address] PCP - General Family Medicine 09/15/23 William Cavazos MD, PhD [address] [place] [address] Physician Hematology/Oncology 11/29/14 04/30/20 Paula Tuttle, MOISÉS [address] [place] [address] Research Nurse Hematology/Oncology 05/19/17 01/31/20 Israel Hanson, RN Specialty Chaser Apprentice Hematology/Oncology 03/10/20 04/30/20 Paula Tuttle, RN [address] [place] [address] Research Nurse Hematology/Oncology 06/05/20 [place] [address] [place] [address] Physician Hematology/Oncology 06/05/20 documented as of this encounter
--- OUTSIDE RECORDS SUMMARY | 2025-02-18 11:44 | XMS_ITS | Encounter Summary ---
Author Organization [facility] Address [address] [place] [address] Care Team Providers Care Siebel Developer Name Role Phone Aman Mathias MD Primary Care Provider [phone] Aman Mathias MD Primary Care Provider [phone] Buffy Chung PHP CONSULTANT Unavailable [phone] Unallocated, Noms Provider Primary Care Provi hal Aman Mathias MD Primary Care Provider [phone] Encounter Details Date Type Department Care Team [...] Info) Description 02/22/2025 3:00 PM EDT Treatment [facility] [address] [place] [address] Melisa Rocha PTA [address] [place] [address] 02/24/2025 3:00 PM EDT Treatment [facility] [address] [place] [address] Melisa Rocha PTA [address] [place], [place] [address] 07/25/2025 8:15 AM EST [facility] [address] [place] [address] Yaniv Thompson, PHP CONSULTANT [address] [place] [address] documented as of this encounter Procedures Procedure Name Priority Date/Time Associated Diagnosis Comments ECG01 07/09/2023 3:26 PM EST documented in this encounter Results * ECG01 (07/09/2023 3:26 PM EST) Anatomical Region Laterality Modality Other 07/09/2023 3:26 PM EST Narrative 07/25/2023 3:11 PM EST Ventricular Rate : 70 BPM Atrial Rate : 70 BPM P-R Interval : 160 ms QRS Duration : 90 ms Q-T Interval : 370 ms QTC Calculation(Bazett) : 399 ms Calculated P [place] : 22 degrees Calculated R [place] : 34 degrees Calculated T [place] : 17 degrees NORMAL SINUS RHYTHM NORMAL ECG Confirmed by ZACHARY SAMS MD ([id number]) on 07/25/2023 3:11:05 PM NAME : RENÉZACHARY PID : [id number] : 1970 Gender : Male Race : ORD : Procedure Date : Jul 09 2023 15:26:55 Edit Date : Jul 25 2023 15:11:06 Diagnosis: NORMAL SINUS RHYTHM NORMAL ECG Confirmed by ZACHARY SAMS MD ([id number]) on 07/25/2023 3:11:05 PM Test Reason : Location : 117 : CA2RE Overread By : ZACHARY SAMS MD Edited By : ZACHARY SAMS MD Referred By : TYRONE HOWELL Acquired by : jayne coppola, Procedure Note Radiology, Radiologist, - 07/25/2023 Ventricular Rate : 70 BPM Atrial Rate : 70 BPM P-R Interval : 160 ms QRS Duration : 90 ms Q-T Interval : 370 ms QTC Calculation(Bazett) : 399 ms Calculated P [place] : 22 degrees Calculated R [place] : 34 degrees Calculated T [place] : 17 degrees NORMAL SINUS RHYTHM NORMAL ECG Confirmed by ZACHARY SAMS MD ([id number]) on 07/25/2023 3:11:05 PM NAME : ZACHARY MERRITT PID : [id number] : 1970 Gender : Male Race : ORD : Procedure Date : Jul 09 2023 15:26:55 Edit Date : Jul 25 2023 15:11:06 Diagnosis: NORMAL SINUS RHYTHM NORMAL ECG Confirmed by ZACHARY SAMS MD ([id number]) on 07/25/2023 3:11:05 PM Test Reason : Location : 117 : CA2RE Overread By : ZACHARY SAMS MD Edited By : ZACHARY SAMS MD Referred By : TYRONE HOWELL Acquired by : jayne coppola, us Generic External Data Provider [facility] Final Result documented in this encounter Visit Diagnoses Not on filedocumented in this encounter Care Teams Siebel Developer Relationship Specialty Start Date End Date Aman Mathias MD PCP - General Family Medicine 11/27/22 08/06/23 Aman Mathias MD PCP - General Family Medicine 08/07/23 03/30/24 Unallocated, Aguilar Mena MD [address] [place] [address] PCP - General Family Medicine 03/31/24 04/07/24 Aman Mathias MD PCP - General Family Medicine 04/08/24 Buffy Chung NP Nurse Practitioner Family Medicine 08/07/23 documented as of this encounter
--- OUTSIDE RECORDS SUMMARY | 2025-02-18 11:44 | XMS_ITS | Encounter Summary ---
Author Organization [facility] Address [facility] [place] [address] Care Team Providers Care Veneer Layer Name Role Phone Paula Tuttle RN Unavailable UnavailWilliam Goncalves MD, PhD Unavailable [phone] Buffy Chung CNP Primary Care Provider [phone] Source Comments In the event this information is protected by the Federal Confidentiality of Alcohol and Drug AbusePatient Records regulations: The Federal rules restrict any use of the information to criminally investigate or prosecute any alcohol or drug abuse patient.[facility] Encounter Details Date Type Department Care Team (Late st Contact Info) Description 10/01/2023 Patient Msg [facility] [address] [place] [address] Provider, Luis M Pre procedure instructions 10/02 Social History Tobacco Use Types Packs/Day Years [...] is lower risk 7 10/15/2022 Data from: https://www.neighborhoodatlas.medicine.[facility]/. Last address used for calculation [address] 10/15/2022 Sex and Gender Information Value Date [...] on filedocumented in this encounter Care Teams Veneer Layer Relationship Specialty Start Date End Date Buffy Chung, VERIFICATION ENGINEER [address] [place] [address] PCP - General Family Medicine 09/15/23 Paula Tuttle, RN [address] [place] [address] Research Nurse Hematology/Oncology 06/05/20 [place] [address] [place] [address] Physician Hematology/Oncology 06/05/20 documented as of this encounter
--- OUTSIDE RECORDS SUMMARY | 2025-02-18 11:44 | XMS_ITS | Encounter Summary ---
Author Organization [facility] Address [address] [place] [address] Care Team Providers Care Dry Clipper Tender Name Role Phone Paula Tuttle RN Unavailable UnavailWilliam Goncalves MD, PhD Unavailable [phone] Aman Mathias MD Primary Care Provider [phone] Buffy Chung CNP Primary Care Provider [phone] Source Comments In the event this information is protected by the Federal Confidentiality of Alcohol and Drug AbusePatient Records regulations: The Federal rules restrict any use of the information to criminally investigate or prosecute any alcohol or drug abuse patient.[facility] Encounter Details Date Type Department Care Team (Late st Contact Info) Description 07/01/2023 Patient Msg Cardiology [address] [place] [address] Tyron Torres MD [address] [place] [address] Appointment Cancellation Request Social History Tobacco Use [...] is lower risk 7 10/15/2022 Data from: https://www.neighborhoodatlas.[facility]/. Last address used for calculation [...] on filedocumented in this encounter Care Teams Dry Clipper Tender Relationship Specialty Start Date End Date Aman Mathias MD [address] [place] [address] PCP - General Family Medicine 09/03/21 09/14/23 Buffy Chung, LIGHT ARMORED VEHICLE OFFICER [address] [place] [address] PCP - General Family Medicine 09/15/23 Paula Tuttle, RN [address] [place] [address] Research Nurse Hematology/Oncology 06/05/20 [place] [address] [place] [address] Physician Hematology/Oncology 06/05/20 documented as of this encounter
--- OUTSIDE RECORDS SUMMARY | 2025-02-18 11:44 | XMS_ITS | Clinical Summary ---
Author Organization [facility] Healthcare Address [address] [place] [address] Care Team Providers Care Dispatcher Radioactive Waste Disposal Name Role Phone Buffy Chung NP Unavailable Aman Mathias MD Primary Care Provider [phone] Allergies Active Allergy Reactions Criticality Noted Date Comments Morphine GI intolerance 11/24/2023 Medications Continuous Blood Gluc Occupational Health Manager (FreeStyle Carlitos 2 Caraway) device USE DIRECTED TO CHECK GLUCOSE FOUR TIMES DAILY 2 Active FreeStyle Precision Addison Test test strip 1 each by Other route Daily Active B-D UF III MINI PEN NEEDLES 31G X 5 MM misc 5 Active glipiZIDE XL (Glucotrol XL) 5 MG 24 hr tabletIndications: Type 2 diabetes mellitus with hyperglycemia, with long-term current use of insulin (HCC) Take 1 tablet (5 mg) by mouth Daily Do not crush, chew, or split. 90 tablet 5 Active amLODIPine (Norvasc) 10 MG tabletIndications: Primary hypertension Take 1 tablet (10 mg) by mouth Daily 90 tablet 1 5 03/07/20 25 Active pravastatin (Pravachol) 80 MG tabletIndications: Mixed hyperlipidemia Take 1 tablet (80 mg) by mouth Daily 90 tablet 1 5 03/07/20 25 Active lisinopril 20 MG tabletIndications: Primary hypertension Take 1 tablet (20 mg) by mouth Daily 90 tablet 1 5 03/07/20 25 Active insulin lispro (HumaLOG) 100 UNIT/ML injectionIndicatio ns:Type 2 diabetes mellitus with hyperglycemia, with long-term current use of insulin ([facility]) 10 units for at breakfast and lunch, and 22 units at dinner time, plus sliding scale. Max 78 units per daily 10 each 3 5 Active insulin glargine (Lantus SoloStar) 100 UNIT/ML penIndications:Typ e 2 diabetes mellitus with hyperglycemia, with long-term current use of insulin ([facility]) 40 units twice a day 60 mL 2 5 Active Continuous Glucose Sensor (FreeStyle Carlitos 3 Plus Sensor) [facility] Active Active Problems Problem Noted Date Diagnosed Date Gastroesophageal reflux disease without esophagi tis 01/17/2025 Assessment & Plan (01/17/2025 4:07 PM EDT): Recommendations: freq small meals, nothing to eat or drink at least 2 hours prior to bed, limit caffeine, alcohol, as well as spicy foods Meds to limit or avoid if possible: NSAIDS Elevate HOB if possible Will trial pepcid 20mg twice a day Left bicipital tenosynovitis 09/09/2024 Sprain of shoulder, left 09/09/2024 Tear of left supraspinatus tendon 09/09/2024 Type 2 diabetes mellitus with diabetic polyneuro josemanuel 08/11/2024 Assessment & Plan (12/07/2024 7:34 AM EDT): Does not taking any medications Recommend freq foot checks, proper fitting footwear Goal for adequate glycemic control Assessment & Plan (08/11/2024 6:11 AM EST): Does not taking any medications Recommend freq foot checks, proper fitting footwear Goal for adequate glycemic control correction (current) use of insulin 08/11/2024 Assessment & Plan (08/11/2024 6:16 AM EST): Continues w basal and bolus insulin Type 2 diabetes mellitus with diabetic nephropat hy 08/11/2024 Assessment & Plan (08/11/2024 6:13 AM EST): Check labs yearly and prn Goal to control both DM and HTN Bilateral hand pain 04/27/2024 Assessment & Plan (04/27/2024 4:35 PM EST): No hx autoimmune, worse during cold months Has had xrays in the past showed OA Recommend he contact his oncologist, see if ok for him to use OTC capcasin cream 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 We have also discussed lifestyle modifications: attempts to perform physical activity as chronic conditions allow, also to monitor dietary intake: increasing protein/fruits/veggies and lowering carb intake (unless contraindicated). Limit sodas, juices, and sugary drinks. Assessment & Plan (12/07/2024 7:34 AM EDT): Discussed with patient their BMI (actual, verses recommended). We have also discussed lifestyle modifications: attempts to perform physical activity as chronic conditions allow, also to monitor dietary intake: increasing protein/fruits/veggies and lowering carb intake (unless contraindicated). Limit sodas, juices, and sugary drinks. Assessment & Plan (08/11/2024 6:13 AM EST): Discussed with patient their BMI (actual, verses recommended). We have also discussed lifestyle modifications: attempts to perform physical activity as chronic conditions allow, also to monitor dietary intake: increasing protein/fruits/veggies and lowering carb intake (unless contraindicated). Limit sodas, juices, and sugary drinks. Assessment & Plan (05/31/2024 7:23 AM EST): Discussed with patient their BMI (actual, verses recommended). We have also discussed lifestyle modifications: attempts to perform physical activity as chronic conditions allow, also to monitor dietary intake: increasing protein/fruits/veggies and lowering carb intake (unless contraindicated). Limit sodas, juices, and sugary drinks. Assessment & Plan (04/27/2024 7:31 AM EST): Discussed with patient their BMI (actual, verses recommended). We have also discussed lifestyle modifications: attempts to perform physical activity as chronic conditions allow, also to monitor dietary intake: increasing protein/fruits/veggies and lowering carb intake (unless contraindicated). Limit sodas, juices, and sugary drinks. Also discussed oral medications that can be utilized for weight loss, as well as surgical options for weight loss. Colon cancer screening 12/01/2023 Assessment & Plan (05/31/2024 4:12 PM EST): Refer to sergey Assessment & Plan (12/01/2023 3:24 PM EDT): Father had colon cancer Will order colonoscopy early January, has rotator cuff surgery 12/09/23 Hallux rigidus, right foot 10/14/2023 Localized swelling on left hand 10/14/2023 Assessment & Plan (10/14/2023 11:11 AM EDT): Supsect gout, will continue on atb at this time Check labs: CBC, sed rate, crp, and uric acid level Will check xray Add NSAID as well Rotator cuff tear, right 08/07/2023 Degenerative lumbar disc 08/07/2023 Arthritis 08/07/2023 Pancreatitis ([facility]) 07/14/2023 GERD (gastroesophageal reflux disease) Assessment & Plan (08/11/2024 6:13 AM EST): .LAG Spondylolisthesis 07/14/2023 Anemia 07/14/2023 Migraine headache 07/14/2023 Hyponatremia 07/14/2023 Hyperlipidemia 07/14/2023 Assessment & Plan (08/11/2024 6:16 AM EST): Is on statin therapy Continue yearly labs and prn dose changes Assessment & Plan (05/31/2024 7:25 AM EST): Is on statin therapy Continue yearly labs and prn dose changes Assessment & Plan (08/07/2023 4:48 PM EST): Increase in pravastatin to 80mg recheck labs in 3 months Screening for prostate cancer 07/14/2023 Overview (08/11/2024): 08/07/23: 0.86 Essential (primary) hypertension 05/06/2023 Overview (05/06/2023): Oncology increase dose on amlodipine since last visit with me Bp much better No changes in med dose at this time Assessment & Plan (01/17/2025 7:23 AM EDT): Please check blood pressure daily and record DASH diet Limit caffeine Take medication as directed Contact office if chest pain, pressure, dizziness, shortness of breath, swelling legs Recommend slow position changes Current meds: amlodipine and lisinopril Assessment & Plan (12/07/2024 7:34 AM EDT): Please check blood pressure daily and record DASH diet Limit caffeine Take medication as directed Contact office if chest pain, pressure, dizziness, shortness of breath, swelling legs Recommend slow position changes Current meds: amlodipine and lisinopril Assessment & Plan (08/11/2024 6:12 AM EST): Please check blood pressure daily and record DASH diet Limit caffeine Take medication as directed Contact office if chest pain, pressure, dizziness, shortness of breath, swelling legs Recommend slow position changes Current meds: amlodipine and lisinopril Assessment & Plan (05/31/2024 4:10 PM EST): Please check blood pressure daily and record DASH diet Limit caffeine Take medication as directed Contact office if chest pain, pressure, dizziness, shortness of breath, swelling legs Recommend slow position changes Current meds: lisinopril, amlodipine Assessment & Plan (04/27/2024 7:31 AM EST): Please check blood pressure daily and record DASH diet Limit caffeine Take medication as directed Contact office if chest pain, pressure, dizziness, shortness of breath, swelling legs Recommend slow position changes Assessment & Plan (03/03/2024 4:46 PM EDT): Stable, no med dose changes Assessment & Plan (12/01/2023 3:22 PM EDT): At goal, no changes in meds Assessment & Plan (08/07/2023 4:47 PM EST): Continue with current dose of meds no changes Assessment & Plan (05/06/2023 5:38 PM EST): No changes in BP med dose, cont amlodipine at 10mg and lisinopril at 20mg Fu in 3 months Type 2 diabetes mellitus wit h hyperglycemia, with long-term current use of insulin 05/06/2023 Assessment & Plan (01/17/2025 4:14 PM EDT): Check blood sugars daily, notify if <70 [...] Current meds: jardiance, insulin, bert, statin A1c: 10.7% on 12/21/24 (ordered by different provider), 11.4% 12/06/24, 8.5% on 06/16/24, had been having difficulty getting meds, in that 90 day period, however the previous A1c was 10.5% Difficulty affording meds and work schedule sometimes cannot take TID bolus Assessment & Plan (12/07/2024 3:54 PM EDT): Check blood sugars daily, notify if <70 [...] Current meds: jardiance, insulin, bert, statin A1c: 11.4% 12/06/24, 8.5% on 06/16/24, had been having difficulty getting meds, in that 90 day period, however the previous A1c was 10.5% Out of meds: 2-3 months Restarted meds 30 days ago Difficulty affording meds and work schedule sometimes cannot take TID bolus Will increase basal to 40 units BID and cont bolus Fu in 6 weeks Assessment & Plan (08/11/2024 9:05 AM EST): Check blood sugars daily, notify if <70 [...] : 1/2 pill daily #3 samples, lot [id number], exp 08/04 Assessment & Plan (05/31/2024 4:17 PM EST): Check blood sugars daily, notify if <70 [...] until next month #3 samples Jardiance: 25mg [id number], exp 07/2025 Will try a co pay card Assessment & Plan (04/27/2024 4:34 PM EST): See endo notes regarding DM Check blood [...] is going to stay with this office Assessment & Plan (03/03/2024 4:51 PM EDT): Non compliant with basal insulin, secondary to lack of money to buy it. Should have money tomorrow For now d/t financial issues: we are going to use jardiance 25m/2 pill daily for 6 days, then increase to 1 pill daily (#6 samples given lot [id number], exp 08/04 If blood sugar is less than 150 stop the glipizide Fu in 4 weeks for recheck Assessment & Plan (12/01/2023 2:35 PM EDT): Check blood sugars daily, notify if <70 [...] diet low in carbohydrates, and simple sugars. Averages: 7 day average 153, average 14 day 164, average 30 [id number], and average 90 [id number] Assessment & Plan (10/14/2023 11:11 AM EDT): Most recent A1c 6.8% Assessment & Plan (08/07/2023 4:47 PM EST): Reviewed A1c level less than 7% Check blood sugars daily, notify if <70 [...] diet low in carbohydrates, and simple sugars. Assessment & Plan (05/06/2023 5:40 PM EST): Recently added some farxiga about 2 weeks ago, has had 2 episodes of sugar down to about 60, usually around mid night Recommend snack with evening insulin, should be protein No other changes at this time Fu in 8 weeks Body mass index (BMI) 36.0-36.9, adult Obstructive sleep apnea (adult) (pediatric) 03/09 Assessment & Plan (12/07/2024 7:33 AM EDT): You have a diagnosis of obstructive sleep apnea. It is recommended that you wear your PAP device any time while in bed sleeping. Not using the PAP device can increase your risk of elevated/uncontrolled high blood pressure, atrial fibrillation, heart attack, stroke, or sudden . Does not use PAP Assessment & Plan (08/11/2024 6:10 AM EST): You have a diagnosis of obstructive sleep apnea. It is recommended that you wear your PAP device any time while in bed sleeping. Not using the PAP device can increase your risk of elevated/uncontrolled high blood pressure, atrial fibrillation, heart attack, stroke, or sudden . Does not use PAP Assessment & Plan (05/31/2024 7:22 AM EST): You have a diagnosis of obstructive sleep apnea. It is recommended that you wear your PAP device any time while in bed sleeping. Not using the PAP device can increase your risk of elevated/uncontrolled high blood pressure, atrial fibrillation, heart attack, stroke, or sudden . Does not use PAP Assessment & Plan (12/01/2023 3:21 PM EDT): Cannot tolerate PAP Recommend use of this Hypertrophic cardiomyopathy 03/20/2023 Assessment & Plan (08/11/2024 6:12 AM EST): Is following with cardiology Med: amlodipine and lisinopril Assessment & Plan (05/31/2024 7:23 AM EST): As per cardiology Assessment & Plan (12/01/2023 3:23 PM EDT): As per cardiology Assessment & Plan (08/07/2023 4:47 PM EST): Continue with cardiology LVH (left ventricular hypertrophy) 03/20/2023 Assessment & Plan (08/11/2024 6:12 AM EST): Per ECHO findings Follows with cardiology Chronic myeloid leukemia, BC R/ABL-positive, not having achieved remission 04/06/2012 Assessment & Plan (08/11/2024 6:16 AM EST): Continues with treatment through [facility] Assessment & Plan (05/31/2024 4:12 PM EST): Continue with oncology Would like him to ask if asa 81mg can be started Assessment & Plan (04/27/2024 7:32 AM EST): Continue with oncology Assessment & Plan (12/01/2023 3:24 PM EDT): Continue with oncology Resolved Problems Problem Noted Date Diagnosed Date Resolved Date Hypersomnia 02/25/2024 08/11/2024 Diabetic neuropathy 07/14/2023 08/12/19 Assessment & Plan (12/01/2023 3:22 PM EDT): Focus on tight glycemic control Encounters Date Type Department Care Team Description 02/17/2025 3:30 PM EDT Treatment [facility] [address] [place] [address] Melisa Rocha PTA Tear of left supraspinatus tendon (Primary Dx); Left bicipital tenosynovitis; Sprain of left shoulder, unspecified shoulder sprain type, initial encounter; Sprain of left shoulder, initial encounter 02/17/2025 Travel 02/04/2025 12:00 PM EDT Treatment [place] [address] [place] [address] Melisa Rocha PTA Tear of left supraspinatus tendon (Primary Dx); Left bicipital tenosynovitis; Sprain of left shoulder, unspecified shoulder sprain type, initial encounter 02/04/2025 Bamboo flowsheet [facility] [address] [place] [address] Melisa Rocha, SERVICE DESK ASSOCIATE 02/04/2025 Travel 02/01/2025 3:00 PM EDT Treatment [place] [place] [address] Ava Aldana, ANNETTA Tear of left supraspinatus tendon (Primary Dx); Left bicipital tenosynovitis; Sprain of left shoulder, unspecified shoulder sprain type, initial encounter 02/01/2025 Bamboo flowsheet [facility] [address] [place] [address] Ava Aldana, SERVICE DESK ASSOCIATE 02/01/2025 Travel 01/27/2025 3:00 PM EDT Treatment [place] [address] [place] [address] Melisa Rocha, ANNETTA Tear of left supraspinatus tendon (Primary Dx); Left bicipital tenosynovitis; Sprain of left shoulder, unspecified shoulder sprain type, initial encounter 01/27/2025 Bamboo flowsheet [address] [place] [address] Melisa Rocha PTA 01/27/2025 Travel 01/24/2025 9:00 AM EDT Treatment [facility] [address] [place] [address] Melisa Rocha, ANNETTA Tear of left supraspinatus tendon (Primary Dx); Left bicipital tenosynovitis; Sprain of left shoulder, unspecified shoulder sprain type, initial encounter 01/24/2025 8:15 AM EDT Office Visit [place] [address] [facility] [address] Yaniv Thompson NP Sprain of left shoulder, initial encounter (Primary Dx); Tear of left supraspinatus tendon 01/24/2025 Bamboo flowsheet [place] [address] [facility] [address] Yaniv Thompson NP 01/24/2025 Travel 01/18/2025 3:00 PM EDT Treatment [facility] [address] [facility] [address] Jason Elizabeth, PT Tear of left supraspinatus tendon (Primary Dx); Left bicipital tenosynovitis; Sprain of left shoulder, unspecified shoulder sprain type, initial encounter 01/18/2025 Travel 01/17/2025 3:20 PM EDT Office Visit [facility] [address] [place] [address] Buffy Chung NP Gastroesophageal reflux disease without esophagitis (Primary Dx); Essential (primary) hypertension ; Type 2 diabetes mellitus with hyperglycemia, with long-term current use of insulin ([facility]); Morbid (severe) obesity due to excess calories ([facility]) 01/17/2025 Bamboo flowsheet [facility] [address] [place] [address] Buffy Chung NP 01/13/2025 3:00 PM EDT Treatment [facility] [address] [place] [address] Jason Elizabeth, PT Tear of left supraspinatus tendon (Primary Dx); Left bicipital tenosynovitis; Sprain of left shoulder, unspecified shoulder sprain type, initial encounter 01/13/2025 Bamboo flowsheet [facility] [address] [place] [address] Jason Elizabeth, PT 01/13/2025 Travel 01/11/2025 3:00 PM EDT Treatment [facility] [address] [place] [address] Ava Aldana, SERVICE DESK ASSOCIATE Tear of left supraspinatus tendon (Primary Dx); Left bicipital tenosynovitis; Sprain of left shoulder, unspecified shoulder sprain type, initial encounter 01/11/2025 Travel 01/05/2025 8:00 AM EDT Treatment [facility] [address] [facility] [address] Melisa Rocha, SERVICE DESK ASSOCIATE Tear of left supraspinatus tendon (Primary Dx); Left bicipital tenosynovitis; Sprain of left shoulder, unspecified shoulder sprain type, initial encounter 01/05/2025 Travel 01/04/2025 10:00 AM EDT Evaluation [place] [address] [place] [address] Jason Elizabeth, PT Tear of left supraspinatus tendon (Primary Dx); Left bicipital tenosynovitis; Sprain of left shoulder, unspecified shoulder sprain type, initial encounter; Sprain of left shoulder, initial encounter 01/04/2025 Travel 01/04/2025 Plan of Care Documentation [facility] [address] [place] [address] 12/23/2024 Clinisync Result Encounter [facility] External Department Unsolicited Provider, Generic External Data 12/22/2024 Clinisync Result Encounter [facility] External Department Unsolicited Provider, Generic External Data 12/14/2024 Orders Only [facility] [facility] [address] Yaniv Thompson NP Sprain of left shoulder, initial encounter; Tear of left supraspinatus tendon 12/13/2024 8:45 AM EDT Office Visit [place] [address] [place] [address] Yaniv Thompson NP Sprain of left shoulder, initial encounter (Primary Dx) 12/13/2024 Bamboo flowsheet [place] [address] [place] [address] Yaniv Thompson NP 12/13/2024 Travel 12/07/2024 3:20 PM EDT Office Visit [facility] [address] [place] [address] Buffy Chung, YANE Type 2 diabetes mellitus with hyperglycemia, with long-term current use of insulin (HCC) (Primary Dx); Type 2 diabetes mellitus with diabetic polyneuropathy, with long-term current use of insulin (HCC); Essential (primary) hypertension ; Morbid (severe) obesity due to excess calories ([facility]); Screening for prostate cancer; Primary hypertension ; Mixed hyperlipidemia 12/07/2024 Bamboo flowsheet [facility] [address] [place] [address] Buffy Chung NP 11/18/2024 3:00 PM EDT Treatment [place] [address] [place] [address] Jason Elizabeth, PT Tear of left supraspinatus tendon (Primary Dx); Left bicipital tenosynovitis; Sprain of left shoulder, unspecified shoulder sprain type, initial encounter 11/18/2024 Bamboo flowsheet [facility] [address] [place] [address] Jason Elizabeth, PT 11/18/2024 Travel from Last 3 Months Immunizations Immunization Administration Dates Next Due Influenza Nasal, Unspecified 05/20/2017 Influenza, injectable, quadrivalent, preservativ e free 04/21/2018,05/21/2017 Influenza, seasonal, injectable, preservative fr ee 07/19/2016 Novel [id number], preservative-free 07/13 Pneumococcal Conjugate PCV 13 05/20/2017 Tdap 12/16/2010 Family History Medical History Relation Name Comments Diabetes Father Hypertension Father Diabetes Mother Heart disease Mother Hypertension Mother Alzheimer's disease Other Family history Diabetes Other Family history Stroke Other Family history cva Other Family history Relation Name Status Comments Father Alive Mother Alive Other Family history Social History Tobacco Use Types Packs/Day Years Used Date Smoking Tobacco: Never Smokeless Tobacco: Never Tobacco Cessation:Counseling Given: Not Answered Alcohol Use Standard Drinks/Week Comments Not Currently [...] Sign Reading Time Taken Comments Blood Pressure 98/78 01/17/2025 3:30 PM EDT Pulse 78 01/17/2025 3:30 PM EDT Temperature 36.7 C (98 F) 01/17/2025 3:30 PM EDT Respiratory Rate 20 01/17/2025 3:30 PM EDT Oxygen Saturation 96% 01/17/2025 3:30 PM EDT Inhaled Oxygen Concentration - - Weight 117 kg (257 lb 12.8 oz) 01/17/2025 3:30 P M EDT Height 177.8 cm (5' 10 ) 08/11/2024 8:30 AM EST Body Mass Index 36.99 08/11/2024 8:30 AM EST Plan of Treatment Upcoming Encounters Date Type Department Care Team (Late st Contact Info) Description 02/22/2025 3:00 PM EDT [facility] [place] [place] [address] Melisa Rocha, SERVICE DESK ASSOCIATE [address] [place] [address] 02/24/2025 3:00 PM EDT Treatment [facility] [address] [facility] [place] [address] Melisa Rocha, SERVICE DESK ASSOCIATE [address] [place] [address] 07/25/2025 8:15 AM EST Office Visit [facility] [address] [address] Yaniv Thompson, SURGERY NURSE [address] [facility], [place] [id number] Health Maintenance Due Date Last Done Comments CT Colonography 1968 Colonoscopy 1968 FIT-DNA 1968 FOBT 1968 Sigmoidoscopy 1968 Colorectal Cancer Screening 06/23/2021 FIT 06/23/2021 06/23/2020, 05/21/2020 Diabetes: Urine Protein Screening 08/06/2024 08/07/2023, 04/17/2023, 04/17/2023, Additional history exists Diabetes: Hemoglobin A1C 03/24/2025 025, 12/07/2024, 09/08/2024, Additional history exists Diabetes: Retinopathy Screening 06/21/2026 06/21/2024, 06/19/2024, 06/19/2024, Additional history exists Influenza Vaccine Discontinued 04/21/2018, , 07/19/2016 Procedures Procedure Name Priority Date/Time Associated Diagnosis Comments [facility] HIGH SENSITIVITY TROPONIN T Routine 12/23/2024 3:25 PM EDT ALL URINALYSIS Routine 12/22/2024 8:46 AM EDT [facility] Routine 12/22/2024 8 :36 AM EDT [facility] BCR/ABL1 P210 %IS PANEL Routine 12/22/2024 8:36 AM EDT [facility] BCR/ABL1 P210 QUANTITATIVE PCR BLOOD Routine 12/22/2024 8:36 AM EDT [facility] DEPRECATED HGB A1C BLD Routine 12/22/2024 8:36 AM EDT [facility] HIGH SENSITIVITY TROPONIN T Routine 12/22/2024 8:36 AM EDT [facility] CK SERPL-CCNC Routine 12/22/2024 8:3 6 AM EDT [facility] APTT PPP Routine 12/22/2024 8:36 AM EDT [facility] PT PNL PPP Routine 12/22/2024 8:36 AM EDT [facility] PHOSPHATE SERPL-MCNC Routine 12/22/2024 8:36 AM EDT [facility] MAGNESIUM SERPL-MCNC Routine 12/22/2024 8:36 AM EDT [facility] LIPASE SERPL-CCNC Routine 12/22/2024 8:36 AM EDT METRO BILIRUBIN, DIRECT Routine 12/22/2024 8:36 AM EDT [facility] AMYLASE SERPL-CCNC Routine 12/22/2024 8:36 AM EDT [facility] URATE SERPL-MCNC Routine 12/22/2024 8:36 AM EDT [facility] TRIGL SERPL-MCNC Routine 12/22/2024 8:36 AM EDT [facility] COMP METAB 2000 PNL SERPL Routine 12/22/2024 8:36 AM EDT [facility] CHOLEST SERPL-MCNC Routine 12/22/2024 8:36 AM EDT CCF CBC W AUTO DIFF BLD Routine 12/22/2024 8:36 AM EDT POCT GLYCOSYLATED HEMOGLOBIN (HGB A1C) Routine 12/07/2024 3:30 PM EDT Type 2 diabetes mellitus with hyperglycemia, with long-term current use of insulin (HCC) DIABETIC RETINOPATHY SCREENING - OU - BOTH EYES Routine 06/21/2024 1:14 PM EST from Last 3 Months or Most Recently Relevant to Health Maintenance Results * (ABNORMAL) [facility]CF HIGH SENSITIVITY TROPONIN T (12/23/2024 3:25 PM EDT) Only the most recent of2 resultswithin the time period is included. Pathologist [facility] [place] TROPONIN T SERPL HS-MCNC 35(H) <12 ng/L CCF 12/23/2024 3:25 PM EDT 12/23/2024 10:25 PM EDT Narrative CLINISYNC - 12/24/2024 6:51 AM EDT Specimen Type: BLOOD SPECIMEN Ordering Facility: [facility] Address: [address] [place] [address] Original Ordering Provider: TYRONE HOWELL us Generic External Data Provider CLINISYNC F inal Result CLINISYNC CCF [address] [facility] [place] [address] * (ABNORMAL) ALL URINALYSIS (12/22/2024 8:46 AM EDT) Pathologist [facility] [place] CCF COLOR UR Yellow Yellow CCF CCF CLARITY SPEC Clear Clear CCF CCF GLUCOSE UR STRIP-MCNC 3+(A) Negative CCF CCF BILIRUB UR QL STRIP Negative Negative CCF CCF KETONES UR QL STRIP Negative Negative CCF CCF SP GR UR STRIP 1.025 1.005 - 1.030 CCF CCF HGB UR QL STRIP Negative Negative CCF CCF PH UR STRIP 6.0 <8.5 CCF CCF PROT UR STRIP-MCNC Negative Negative CCF CCF UROBILINOGEN UR QL STRIP 0.2 EU/dL 0.2-1.0 EU/dL CCF CCF NITRITE UR QL STRIP Negative Negative CCF CCF LEUKOCYTE ESTERASE UR QL STRIP Negative Negative CCF 12/22/2024 8:46 AM EDT 12/22/2024 9:13 AM EDT Narrative TREVOR - 12/22/2024 9:24 AM EDT Specimen Type: URINE SPECIMEN Ordering Facility: [facility] Address: [address] [place] [address] Original Ordering Provider: TYRONE HOWELL us Generic External Data Provider TREVOR orozco Result CLINISYLORETTA [facility] [address] [place] [address] [place] [address] * CCF BCR/ABL1 P210 QUANTITATIVE PCR BLOOD (12/22/2024 8:36 AM EDT) Pathologist [facility] [place] CCF BCR/ABL1 P210 INTERPRETATION CCF Comment: BCR/ABL1 p210 Quantitative PCR Laboratory Accession Number: [id number] Result: DETECTED MR: 2.55 %IS: 0.2815 Interpretation: p210 BCR/ABL1 transcripts were detected. Quantitative results are expressed on the International Scale (IS) and a log molecular response (MR) is calculated. On this scale, a value of less than or equal to 0.1% corresponds to a major molecular response (MMR or MR3.0). Methodology: The [employer] QuantideX BCR/ABL IS assay is an FDA-cleared [...] Blood 2006;108:28-37; Janes et al, Leukemia 2015;29:999-1003 Interpretation performed by Radha Lozano, PhD, [facility] 12/22/2024 8:36 AM EDT 12/22/2024 12:00 PM EDT Narrative CLINISYNC - 12/24/2024 4:11 PM EDT Specimen Type: BLOOD SPECIMEN Ordering Facility: [facility] Address: [address] [place] [address] Original Ordering Provider: TYRONE HOWELL Generic External Data Provider CLINISYNC F inal Result Performing Organization Address [facility] Co de Phone Number CLINISYNC [facility] [address] [place], [place] [phone] * METRO BILIRUBIN, DIRECT (12/22/2024 8:36 AM EDT) CCF BILIRUB CONJ SERPL-MCNC 0.1 <0.3 mg/dL CCF 12/22/2024 8:36 AM EDT 12/22/2024 8:52 AM EDT Narrative CLINISYNC - 12/22/2024 9:28 AM EDT Specimen Type: BLOOD SPECIMEN Ordering Facility: [facility] Address: [address] [place] [address] Original Ordering Provider: TYRONE HOWELL Generic External Data Provider CLINISYNC F inal Result Performing Organization Address [facility] Co de Phone Number CLINISYNC CCF [address] [place], [place] [phone] * (ABNORMAL) CCF URATE SERPL-MCNC (12/22/2024 8:36 AM EDT) CCF URATE SERPL-MCNC 2.6(L) 4.0 - 8.1 mg/dL CCF 12/22/2024 8:36 AM EDT 12/22/2024 8:52 AM EDT Narrative CLINISYNC - 12/22/2024 9:24 AM EDT Specimen Type: BLOOD SPECIMEN Ordering Facility: [facility] Address: [address] [place] [address] Original Ordering Provider: TYRONE HOWELL Generic External Data Provider TREVOR orozco Result Performing Organization Address [facility] Co de Phone Number TREVOR MOSLEY [address] [address] * (ABNORMAL) CCF ERNSTL GILDARDOL-MCNC (12/22/2024 8:36 AM EDT) CCF TRIGL GILDARDO-NC 156(H) <150 mg/dL CCF Comment: <150 mg/dL, Normal 150-199 mg/dL, Borderline high 200-499 mg/dL, High >499 mg/dL, Very high Reference: 1. National Cholesterol Education Program ATP III Guideline At-A-Glance Quick Desk Reference: National Heart, Lung, and Blood [place]. National Institutes of Health. 2001: NIH Publication No. 01-3305. CCF FASTING TIME 13 hrs CCF 12/22/2024 8:36 AM EDT 12/22/2024 8:52 AM EDT N[facility]ative [facility] 12/22/2024 9:24 AM EDT Specimen Type: BLOOD SPECIMEN Ordering Facility: [facility] Address: [address] [place] [address] Original Ordering Provider: TYRONE HOWELL Generic External Data Provider TREVOR orozco Result Performing Organization Address [facility] Co de Phone Number TREVOR MOSLEY [address] [address] * CCF PT PNL PPP (12/22/2024 8:36 AM EDT) CCF PROTHROMBIN TIME 11.0 9.7 - 13.0 sec CCF CCF INR PPP 1.0 0.9 - 1.3 CCF Comment: Vitamin K Antagonist (VKA) Therapeutic Range: INR 2 to 3 (Target INR of 2.5) Note: For patients treated with VKA drugs, such as warfarin, the [place] [employer] 2012 Guideline recommends [...] to 3.5 (target INR of 3). Coby GH, et al. Chest 2012, 141:7S-47S Surinder RA, et al. [facility] 2017, 70: 252-289 12/22/2024 8:36 AM EDT 12/22/2024 9:14 AM EDT Narrative CLINISYNC - 12/22/2024 9:31 AM EDT Specimen Type: BLOOD SPECIMEN Ordering Facility: [facility] Address: [address] [place] [address] Original Ordering Provider: TYRONE HOWELL Generic External Data Provider CLINISYNC F inal Result Performing Organization Address [facility] de Phone Number CLINISYNC CCF [address] [address] * CCF PHOSPHATE SERPL-MCNC (12/22/2024 8:36 AM EDT) Pathologist [facility] [place] CCF PHOSPHATE SERPL-MCNC 3.3 2.7 - 4.8 mg/dL CCF 12/22/2024 8:36 AM EDT 12/22/2024 8:52 AM EDT Narrative CLINISYNC - 12/22/2024 9:28 AM EDT Specimen Type: BLOOD SPECIMEN Ordering Facility: [facility] Address: [address] [place] [address] Original Ordering Provider: TYRONE HOWELL Generic External Data Provider CLINISYNC F inal Result Performing Organization Address [facility] de Phone Number CLINISYNC CCF [address] [place] [phone] * [facility] SEND OUT TST 1 (12/22/2024 8:36 AM EDT) [facility] CCF TEST 1 CCF Comment:Research CCF TEST RESULTS 1 CCF Comment:Research REFERRAL LAB 1 (DROP-DOWN) CCF Comment:Research 12/22/2024 8:36 AM EDT 12/22/2024 8:38 AM EDT Narrative CLINISYNC - 12/29/2024 9:01 AM EDT Specimen Type: BLOOD SPECIMEN Ordering Facility: [facility] Address: [address] [place] [address] Original Ordering Provider: TYRONE HOWELL Generic External Data Provider TREVOR F inal Result Performing Organization Address [facility] Co de Phone Number TREVOR WHITE * CCF LIPASE SERPL-CCNC (12/22/2024 8:36 AM EDT) [facility] LIPASE SERPL-CCNC 23 16 - 61 U/L CCF 12/22/2024 8:36 AM EDT 12/22/2024 8:52 AM EDT Narrative CLINISYNC - 12/22/2024 9:28 AM EDT Specimen Type: BLOOD SPECIMEN Ordering Facility: [facility] Address: [address] [place] [address] Original Ordering Provider: TYRONE HOWELL Generic External Data Provider JOSE DAVIDISYNC F inal Result Performing Organization Address [facility]/ZIP Co de Phone Number TREVOR [facility] [address] [place] [address] [address] [place] [address] * (ABNORMAL) CCF DEPRECATED HGB A1C BLD (12/22/2024 8:36 AM EDT) [facility] CCF HBA1C MFR BLD 10.7(H) 4.3 - 5.6 % CCF Comment:[place] Diabetes As sociation guidelines indicate that patients with HgbA1c in the range 5.7-6.4% are at increased risk for development of diabetes, and intervention by lifestyle modification may be beneficial. HgbA1c greater or equal to 6.5% is considered diagnostic of diabetes. CCF EST. AVERAGE GLUCOSE BLD GHB EST-MCNC 260 mg/dL CCF Comment:eAG: (Estimated aver age glucose) is a calculated value from HgbA1c and is event marketing representative of the average blood glucose level in the last 2-3 month period. 12/22/2024 8:36 AM EDT 12/22/2024 9:56 AM EDT Narrative CLINISYNC - 12/22/2024 5:18 PM EDT Specimen Type: BLOOD SPECIMEN Ordering Facility: [facility] Address: [address] [place] [address] Original Ordering Provider: TYRONE HOWELL Generic External Data Provider JOSE DAVIDISYNC F inal Result Performing Organization Address [facility] de Phone Number [facility] [address] [place] [address] * CCF CK SERPL-CCNC (12/22/2024 8:36 AM EDT) CCF CK SERPL-CCNC 55 51 - 298 U/L CCF 12/22/2024 8:36 AM EDT 12/22/2024 8:45 AM EDT Narrative CLINISYNC - 12/22/2024 9:51 AM EDT Specimen Type: BLOOD SPECIMEN Ordering Facility: [facility] Address: [address] [place] [address] Original Ordering Provider: TYRONE HOWELL Generic External Data Provider CLINISYNC F inal Result Performing Organization Address [facility] Co de Phone Number [facility] [address] [place] [address] * CCF CHOLEST SERPL-MCNC (12/22/2024 8:36 AM EDT) [facility] CHOLEST SERPL-MCNC 185 <200 mg/dL CCF Comment: <200 mg/dL, Desirable 200-239 mg/dL, Borderline high >239 mg/dL, High Reference: 1. National Cholesterol Education Program ATP III Guideline At-A-Glance Quick Desk Reference: National Heart, Lung, and Blood [place]. National Institutes of Health. 2001: NIH Publication No. 01-3305. 12/22/2024 8:36 AM EDT 12/22/2024 8:52 AM EDT Narrative TREVOR - 12/22/2024 9:20 AM EDT Specimen Type: BLOOD SPECIMEN Ordering Facility: [facility] Address: [address] [phone] Original Ordering Provider: TYRONE HOWELL us Generic External Data Provider TREVOR F inal Result TREVOR CCF [address] [facility] [address] [place] [address] * (ABNORMAL) CCF CBC W AUTO DIFF BLD (12/22/2024 8:36 AM EDT) CCF WBC # BLD AUTO 10.82 3.70 - 11.00 k/uL CCF CCF RBC # BLD AUTO 5.75 4.20 - 6.00 m/uL CCF CCF HGB BLD-MCNC 15.7 13.0 - 17.0 g/dL CCF CCF HCT VFR BLD AUTO 44.9 39.0 - 51.0 % CCF CCF MCV RBC AUTO 78.1(L) 80.0 - 100.0 fL CCF CCF MCH RBC QN AUTO 27.3 26.0 - 34.0 pg CCF CCF MCHC RBC AUTO-MCNC 35.0 30.5 - 36.0 g/dL CCF CCF RDW RBC-RTO 13.4 11.5 - 15.0 % CCF CCF PLATELET # BLD AUTO 273 150 - 400 k/uL CCF CCF PMV BLD AUTO 10.1 9.0 - 12.7 fL CCF CCF NEUTROPHILS/LEUK NFR BLD AUTO 64.9 % CCF CCF NEUTROPHILS # BLD AUTO 7.02 1.45 - 7.50 k/uL CCF CCF LYMPHOCYTES/LEUK NFR BLD AUTO 21.0 % CCF CCF LYMPHOCYTES # BLD AUTO 2.27 1.00 - 4.00 k/uL CCF CCF MONOCYTES/LEUK NFR BLD AUTO 7.5 % CCF CCF MONOCYTES # BLD AUTO 0.81 <0.87 k/uL CCF CCF EOSINOPHIL/LEUK NFR BLD AUTO 5.0 % CCF CCF EOSINOPHIL # BLD AUTO 0.54(H) <0.46 k/uL CCF CCF BASOPHILS/[place] NFR BLD AUTO 0.8 % CCF CCF BASOPHILS # BLD AUTO 0.09 <0.11 k/uL CCF IMM GRANULOCYTES/[place]UK NFR BLD AUTO 0.8 % CCF IMM GRANULOCYTES # BLD AUTO 0.09 <0.10 k/uL CCF CCF NRBC/100 WBC BLD-RTO 0.0 /100 WBC CCF CCF NRBC # BLD AUTO <0.01 <0.01 k/uL CCF CCF DIFFERENTIAL METHOD BLD Auto CCF 12/22/2024 8:36 AM EDT 12/22/2024 8:55 AM EDT Narrative CLINISYNC - 12/22/2024 9:01 AM EDT Specimen Type: BLOOD SPECIMEN Ordering Facility: [facility] Address: [address] [place] [address] Original Ordering Provider: TYRONE HOWELL Generic External Data Provider TREVOR F inal Result [facility] [address] [facility] [address] [place] [address] * CCF BCR/ABL1 P210 %IS PANEL (12/22/2024 8:36 AM EDT) CCF BCR/ABL1 P210 %IS 0.2815 CCF CCF BCR/ABL1 P210 MR 2.55 CCF 12/22/2024 8:36 AM EDT 12/22/2024 9:56 AM EDT Narrative CLINISYNC - 12/25/2024 12:07 PM EDT Specimen Type: BLOOD SPECIMEN Ordering Facility: [facility] Address: [address] [place] [address] Original Ordering Provider: TYRONE HOWELL Generic External Data Provider CLINISYNC F inal Result Performing Organization Address [facility] Co de Phone Number RAFATNC CCF [address] [place] [phone] * CCF APTT PPP (12/22/2024 8:36 AM EDT) CCF APTT PPP 25.8 23.0 - 32.4 sec CCF 12/22/2024 8:36 AM EDT 12/22/2024 9:14 AM EDT Narrative CLINISYNC - 12/22/2024 9:31 AM EDT Specimen Type: BLOOD SPECIMEN Ordering Facility: [facility] Address: [address] [place] [address] Original Ordering Provider: TYRONE HOWELL Generic External Data Provider CLINISYNC F inal Result Performing Organization Address [facility] Co de Phone Number RAFATNC CCF [address] [address] * CCF AMYLASE SERPL-CCNC (12/22/2024 8:36 AM EDT) Pathologist [facility] [place] CCF AMYLASE SERPL-CCNC 34 30 - 104 U/L CCF 12/22/2024 8:36 AM EDT 12/22/2024 8:52 AM EDT Narrative CLINISYNC - 12/22/2024 9:28 AM EDT Specimen Type: BLOOD SPECIMEN Ordering Facility: [facility] Address: [address] [place] [address] Original Ordering Provider: TYRONE HOWELL Generic External Data Provider CLINISYNC F inal Result Performing Organization Address [facility] de Phone Number RAFATNC CCF [address] [address] * CCF MAGNESIUM SERPL-MCNC (12/22/2024 8:36 AM EDT) CCF MAGNESIUM SERPL-MCNC 2.0 1.7 - 2.3 mg/dL CCF 12/22/2024 8:36 AM EDT 12/22/2024 8:52 AM EDT Narrative TREVOR - 12/22/2024 9:28 AM EDT Specimen Type: BLOOD SPECIMEN Ordering Facility: [facility] Address: [address] [place] [address] Original Ordering Provider: TYRONE HOWELL us Generic External Data Provider CLINMARGRETNC F inal Result CLINISYNC CCF [address] [facility] [address] [place] [phone] * (ABNORMAL) CCF COMP METAB 2000 PNL SERPL (12/22/2024 8:36 AM EDT) CCF PROT SERPL-MCNC 8.3(H) 6.3 - 8.0 g/dL CCF CCF ALBUMIN SERPL-MCNC 4.0 3.9 - 4.9 g/dL CCF CCF CALCIUM SERPL-MCNC 9.5 8.5 - 10.2 mg/dL CCF CCF BILIRUB SERPL-MCNC 0.3 0.2 - 1.3 mg/dL CCF CCF ALP SERPL-CCNC 311(H) 38 - 113 U/L CCF CCF AST SERPL-CCNC 44(H) 14 - 40 U/L CCF CCF ALT SERPL-CCNC 54 10 - 54 U/L CCF CCF GLUCOSE SERPL-MCNC 281(H) 74 - 99 mg/dL CCF Comment: The [place] Diabetes Association (ADA) provides guidance for cutoff [...] Standards of Medical Care in Diabetes 2016, [place] [employer] Association. Diabetes Care. 2016.39(Suppl 1). CCF BUN SERPL-MCNC 12 9 - 24 mg/dL CCF CCF CREAT SERPL-MCNC 0.59(L) 0.73 - 1.22 mg/dL CCF CCF SODIUM SERPL-SCNC 134(L) 136 - 144 mmol/L CCF CCF POTASSIUM SERPL-SCNC 4.9 3.7 - 5.1 mmol/L CCF CCF CHLORIDE SERPL-SCNC 99 98 - 107 mmol/L CCF CCF CO2 SERPL-SCNC 25 22 - 30 mmol/L CCF CCF ANION GAP SERPL-SCNC 10 8 - 15 mmol/L CCF EGFRCR SERPLBLD CKD-EPI 2020 114 >=60 mL/min/1. 73m??? CCF Comment:Estimated Glomerular Filtration Rate (eGFR) is calculated using the 2020 CKD-EPI creatinine equation. This equation utilizes serum creatinine, sex, and age as parameters. The creatinine assay has traceable calibration to isotope dilution- mass spectrometry. Refer to KDIGO guidelines for clinical interpretation. In patients with unstable renal function, e.g. those with acute kidney injury, the eGFR may not accurately reflect actual GFR. 12/22/2024 8:36 AM EDT 12/22/2024 8:52 AM EDT Louisa MURRAY - 12/22/2024 9:24 AM EDT Specimen Type: BLOOD SPECIMEN Ordering Facility: [facility] Address: [address] [place], [place] [id number] Original Ordering Provider: TYRONE HOWELL us Generic External Data Provider TREVOR orozco Result TREVOR WHITE [address] [facility] [address] [place] [address] * (ABNORMAL) POCT glycosylated hemoglobin (Hb A1C) docked device (12/07/2024 3:30 PM EDT) Hemoglobin A1C 11.4 Blood Venous blood specimen / Unknown 12/07/2024 3:30 PM EDT us Buffy Chung NP POINT OF CARE TEST ENTER/EDIT O RDERABLES Final Result * Diabetic Retinopathy Screening - OU - Both Eyes (06/21/2024 1:14 PM EST) Anatomical Region Laterality Modality Head Other us Dav Tobin OD OPHTH PHOTOGRAPHY Final Result from Last 3 Months or Most Recently Relevant to Health Maintenance Insurance [employer] Care Teams Dispatcher Radioactive Waste Disposal Relationship Specialty Start Date End Date Aman Mathias MD PCP - General Family Medicine 04/08/24 Buffy Chung NP Nurse Practitioner Family Medicine 08/07/23
--- OUTSIDE RECORDS SUMMARY | 2025-02-18 11:44 | XMS_ITS | Encounter Summary ---
Author Organization [facility] Address [address] [place] [address] Care Team Providers Care Stud Driver Name Role Phone Buffy Chung NP Unavailable [phone] Aman Mathias MD Primary Care Provider [phone] Encounter Details Date Type Department Care Team (Late st Contact Info) Description 02/04/2025 Bamboo flowsheet [facility] [address] [place] [address] Melisa Rocha, FLARING MACHINE OPERATOR [address] [place] [address] Social History Tobacco Use Types Packs/Day Years [...] Info) Description 02/22/2025 3:00 PM EDT Treatment [facility] [address] [place] [address] Melisa Rocha, FLARING MACHINE OPERATOR [address] [place] [address] 02/24/2025 3:00 PM EDT Treatment [facility] [address] [place] [address] Melisa Rocha PTA [address] [place], [place] [phone] 07/25/2025 8:15 AM EST Office Visit [facility] [address] [place] [address] Yaniv Thompson NP [address] [place], [place] [phone] documented as of this encounter Visit Diagnoses Not on filedocumented in this encounter Care Teams Stud Driver Relationship Specialty Start Date End Date Aman Mathias MD PCP - General Family Medicine 04/08/24 Buffy Chung NP Nurse Practitioner Family Medicine 08/07/23 documented as of this encounter
--- OUTSIDE RECORDS SUMMARY | 2025-02-18 11:44 | XMS_ITS | Encounter Summary ---
Author Organization [facility] Address [address] [place] [address] Care Team Providers Care Material Disposition Inspector Name Role Phone William Cavazos MD, PhD Unavailable [phone] Karl Gonzalez DO Primary Care Provider Paula Tuttle RN Unavailable UnavailIsrael Armstrong RN Unavailable Unavailable Aman Mathias MD Primary Care Provider [phone] Paula Tuttle RN Unavailable UnavailWilliam Goncalves MD, PhD Unavailable [phone] Aman Mathias MD Primary Care Provider [phone] Buffy Chung CNP Primary Care Provider [phone] Source Comments In the event this information is protected by the Federal Confidentiality of Alcohol and Drug AbusePatient Records regulations: The Federal rules restrict any use of the information to criminally investigate or prosecute any alcohol or drug abuse patient.[facility] Encounter Details Date Type Department Care Team (Late st Contact Info) Description 03/10/2019 Patient Msg Hematology/Oncology [address] [place] [address] Provider, [facility] 03/22 Social History Tobacco Use Types Packs/Day Years [...] on filedocumented in this encounter Care Teams Material Disposition Inspector Relationship Specialty Start Date End Date Karl Gonzalez DO [address] [place] [place] [address] PCP - General Family Medicine 03/12/16 04/30/20 Aman Mathias MD [address] [place] [address] PCP - General Family Medicine 05/01/20 09/02/21 Aman Mathias MD [address] [place] [address] PCP - General Family Medicine 09/03/21 09/14/23 Buffy Chung, RECORDS ASSOCIATE [address] [place] [address] PCP - General Family Medicine 09/15/23 William Cavazos MD, PhD [address] [place] [address] Physician Hematology/Oncology 11/29/14 04/30/20 Paula Tuttle, RN [address] [place] [address] Research Nurse Hematology/Oncology 05/19/17 01/31/20 Israel Hanson, RN Specialty Donor Services Manager Hematology/Oncology 03/10/20 04/30/20 Paula Tuttle, RN [address] [place] [address] Research Nurse Hematology/Oncology 06/05/20 [place] [address] [place] [address] Physician Hematology/Oncology 06/05/20 documented as of this encounter
--- OUTSIDE RECORDS SUMMARY | 2025-02-18 11:44 | XMS_ITS | Encounter Summary ---
Author Organization [facility] Address [address] [place] [address] Care Team Providers Care Rest Room Matron Name Role Phone Aman Mathias MD Primary Care Provider [phone] Buffy Chung BRUSH MAKER Unavailable [phone] Unallocated, Noms Provider Primary Care Provi hal Aman Mathias MD Primary Care Provider [phone] Encounter Details Date Type Department Care Team (Late st Contact Info) Description 10/14/2023 Clinisync Result Encounter [facility] External Department Unsolicited Buffy Chung, YANE [address] [place] [address] Social History Tobacco Use Types Packs/Day Years [...] Treatment [facility] [address] [place] [address] Melisa Rocha, PROCESSOR SOLID PROPELLANT [address] [facility] [place] [place] [address] 02/24/2025 3:00 PM EDT Treatment [facility] [address] [place] [address] Melisa Rocha, PROCESSOR SOLID PROPELLANT [address] [facility] [place] [address] 07/25/2025 8:15 AM EST Office Visit [facility] [address] [place] [address] Yaniv Thompson, BRUSH MAKER [address] [facility] [place] [address] documented as of this encounter Procedures Procedure Name Priority Date/Time Associated Diagnosis Comments XR HAND 3+ VIEWS LEFT 10/14/2023 12:32 PM EDT documented in this encounter Results * XR hand 3+ views left (10/14/2023 12:32 PM EDT) Anatomical Region Laterality Modality Upper Extremities, Hand Left Radiogra phic Imaging 10/14/2023 12:3 2 PM EDT Narrative 10/14/2023 12:35 PM EDT [facility] [place] [id number] XRay Report Signed Patient: DERRELL MERRITT MR#: [id number] : 1970 Acct:[id number] Age/Sex: 53 / M ADM Date: 10/14/23 Loc: LAB Attending Dr: Buffy Chung NP Ordering Physician: Buffy Chung NP Date of Service: 10/14/23 Procedure(s): XR hand LT min 3V Accession Number(s): [id number] cc: Buffy Chung NP [place] [id number] Patient Name: DERRELL MERRITT MRN: [id number] date: 1970 Sex: M Assigned Patient Location: LAB Current Patient Location: LAB Accession/Order Number: [id number] Exam Date: 10/14/2023 11:45 Report Date: 10/14/2023 12:32 At the request of: BUFFY CHUNG Procedure: XR hand LT min 3V EXAM: XR hand LT min 3V HISTORY: Localized Swelling Of Left Hand R22.32 COMPARISON: None. FINDINGS/IMPRESSION: 1. No acute fracture or dislocation 2. Mild degeneration of the interphalangeal joints. 3. Normal alignment of the bones of the hand. Electronically authenticated by: JESUS DISLA Date: 10/14/2023 12:32 Dictated By: Jesus Disla M.D. Signed By: 10/14/23 1235 DD/ 1232 TD/TT: Merchandise Planning Manager: Procedure Note Radiology, Radiologist, MD - 10/14/[address] [address] XRay Report Signed Patient: DERRELL MERRITT CMR#: [id number] : 1970Acct:[id number] Age/Sex: 53 / MADM Date: 10/14/23 Loc: LAB Attending Dr: Buffy Chung NP Ordering Physician: Buffy Chung NP Date of Service: 10/14/23 Procedure(s): XR hand LT min 3V Accession Number(s): [id number] cc: Buffy Chung NP [address] [address] Patient Name: DERRELL MERRITT MRN: [id number] date: 1970 Sex: M Assigned Patient Location: LAB Current Patient Location: LAB Accession/Order Number: [id number] Exam Date: 10/14/2023 11:45 Report Date: 10/14/2023 12:32 At the request of: BUFFY CHUNG Procedure: XR hand LT min 3V EXAM: XR hand LT min 3V HISTORY: Localized Swelling Of Left Hand R22.32 COMPARISON: None. FINDINGS/IMPRESSION: 1. No acute fracture or dislocation 2. Mild degeneration of the interphalangeal joints. 3. Normal alignment of the bones of the hand. Electronically authenticated by: JESUS DISLA Date: 10/14/2023 12:32 Dictated By: Jesus Disla M.D. Signed By:10/14/23 1235 DD/ 1232 TD/TT: Merchandise Planning Manager: Buffy Chung BRUSH MAKER IMG XR PROCEDURES Final Result documented in this encounter Visit Diagnoses Not on filedocumented in this encounter Care Teams Rest Room Matron Relationship Specialty Start Date End Date Aman Mathias MD PCP - General Family Medicine 08/07/23 03/30/24 Unallocated, Noms MD Rajesh [address] [place] [address] PCP - General Family Medicine 03/31/24 04/07/24 Aman Mathias MD PCP - General Family Medicine 04/08/24 Buffy Chung NP Nurse Practitioner Family Medicine 08/07/23 documented as of this encounter
--- OUTSIDE RECORDS SUMMARY | 2025-02-18 11:44 | XMS_ITS | Encounter Summary ---
Author Organization [employer] [employer] [facility] Address [id number] [address] [place] [address] Care Team Providers Care Digital Sales Representative Name Role Phone Buffy Chung APRN-VENEER REPAIRER MACHINE Primary Care Provider Reason for Referral * Cardiology (Routine) - Closed Specialty Diagnoses / Procedures Referred By Contac t Referred To Contact Cardiology Diagnoses Pain Procedures Non [facility] [address] [place] [phone] Phone: tel: fax: Referral ID Status Reason Start Date Expiration Date Visits Re quested Visits Authorized [id number] Closed 10/29/2023 10/28/2024 1 1 Encounter Details Date Type Department Care Team (Late st Contact Info) Description 10/29/2023 Orders Only [facility] [address] [place] [phone] Transcribe, Orders Support User Pain (Primary Dx) Social History Tobacco Use Types Packs/Day Years [...] got money to buy more. Never True 05/16/2022 Within the past 12 months th e food we bought just didn't last and we didn't have money to get more. Never True 05/16/2022 Purpose - Life Answer Date Recorded Purpose and direction in life Unknown Sex and Gender Information Value Date Recorded Sex Assigned at Male 03/23/2023 10:26 AM EDT Legal Sex Male 11:27 AM EDT Gender Identity Male 03/23/2023 10:26 AM EDT Sexual Orientation Straight 03/23/2023 10 :26 AM EDT documented as of this encounter Plan of Treatment Upcoming Encounters Date Type Department Care Team (Late st Contact Info) Description 02/25/2025 3:00 PM EDT Appointment [facility] - Cardiovascular [address] [place] [address] Mal Coello MD [address] [place] [address] documented as of this encounter Results * Non [facility] (10/01/2023 11:40 AM EDT) us Scanning Provider External CV ECHO ORDERABLES Fi nal Result XCELERA documented in this encounter Visit Diagnoses Diagnosis Pain- Primary Generalized pain documented in this encounter Care Teams Digital Sales Representative Relationship Specialty Start Date End Date Buffy Chung, HEAD END DESIZING MACHINE OPERATOR-VENEER REPAIRER MACHINE PCP - General Nurse Practitioner 05/19/24 documented as of this encounter
--- OUTSIDE RECORDS SUMMARY | 2025-02-18 11:44 | XMS_ITS | Encounter Summary ---
Author Organization [facility] Address [address] [place] [address] Care Team Providers Care Ball Worker Name Role Phone Aman Mathias MD Primary Care Provider [phone] Aman Mathias MD Primary Care Provider [phone] Buffy Chung CIGAR PATCHER Unavailable [phone] Unallocated, Noms Provider Primary Care Provi hal Aman Mathias MD Primary Care Provider [phone] Encounter Details Date Type Department Care Team [...] Info) Description 02/22/2025 3:00 PM EDT Treatment [facility] [address] [place] [address] Melisa Rocha PTA [address] [place] [address] 02/24/2025 3:00 PM EDT Treatment [facility] [address] [place] [address] Melisa Rocha PTA [address] [place], [place] [id number] 07/25/2025 8:15 AM EST Office [facility] [address] [place] [address] Yaniv Thompson, CIGAR PATCHER [address] [place] [address] documented as of this encounter Procedures Procedure Name Priority Date/Time Associated Diagnosis Comments ECG01 07/09/2023 3:25 PM EST documented in this encounter Results * ECG01 (07/09/2023 3:25 PM EST) Anatomical Region Laterality Modality Other 07/09/2023 3:25 PM EST Narrative 07/25/2023 3:10 PM EST Ventricular Rate : 73 BPM Atrial Rate : 73 BPM P-R Interval : 150 ms QRS Duration : 92 ms Q-T Interval : 372 ms QTC Calculation(Bazett) : 409 ms Calculated P [place] : 17 degrees Calculated R [place] : 33 degrees Calculated T [place] : 15 degrees NORMAL SINUS RHYTHM NORMAL ECG Confirmed by ZACHARY SAMS MD ([id number]) on 07/25/2023 3:10:52 PM NAME : RENÉZACHARY PID : [id number] : 1970 Gender : Male Race : ORD : Procedure Date : Jul 09 2023 15:25:16 Edit Date : Jul 25 2023 15:10:58 Diagnosis: NORMAL SINUS RHYTHM NORMAL ECG Confirmed by ZACHARY SAMS MD ([id number]) on 07/25/2023 3:10:52 PM Test Reason : Location : 117 : CA2RE Overread By : ZACHARY SAMS MD Edited By : ZACHARY SAMS MD Referred By : TYRONE HOWELL Acquired by : jayne coppola, Procedure Note Radiology, Radiologist, - 07/25/2023 Ventricular Rate : 73 BPM Atrial Rate : 73 BPM P-R Interval : 150 ms QRS Duration : 92 ms Q-T Interval : 372 ms QTC Calculation(Bazett) : 409 ms Calculated P [place] : 17 degrees Calculated R [place] : 33 degrees Calculated T [place] : 15 degrees NORMAL SINUS RHYTHM NORMAL ECG Confirmed by ZACHARY SAMS MD ([id number]) on 07/25/2023 3:10:52 PM NAME : ZACHARY MERRITT PID : [id number] : 1970 Gender : Male Race : ORD : Procedure Date : Jul 09 2023 15:25:16 Edit Date : Jul 25 2023 15:10:58 Diagnosis: NORMAL SINUS RHYTHM NORMAL ECG Confirmed by ZACHARY SAMS MD ([id number]) on 07/25/2023 3:10:52 PM Test Reason : Location : 117 : CA2RE Overread By : ZACHARY SAMS MD Edited By : ZACHARY SAMS MD Referred By : TYRONE HOWELL Acquired by : jayne coppola, us Generic External Data Provider [facility] Final Result documented in this encounter Visit Diagnoses Not on filedocumented in this encounter Care Teams Ball Worker Relationship Specialty Start Date End Date Aman Mathias MD PCP - General Family Medicine 11/27/22 08/06/23 Aman Mathias MD PCP - General Family Medicine 08/07/23 03/30/24 Unallocated, Aguilar Mena MD [address] [place] [address] PCP - General Family Medicine 03/31/24 04/07/24 Aman Mathias MD PCP - General Family Medicine 04/08/24 Buffy Chung NP Nurse Practitioner Family Medicine 08/07/23 documented as of this encounter
--- OUTSIDE RECORDS SUMMARY | 2025-02-18 11:44 | XMS_ITS | Encounter Summary ---
Author Organization [facility] Address [address] [place] [address] Care Team Providers Care Electronic Tech Name Role Phone Buffy Chung NP Unavailable [phone] Aman Mathias MD Primary Care Provider [phone] Encounter Details Date Type Department Care Team (Latest Contact Info) Description 02/04/2025 Travel Social History Tobacco Use Types Packs/Day [...] Info) Description 02/22/2025 3:00 PM EDT Treatment [facility] [address] [place] [address] Melisa Rocha, AUTOMOBILE RACER [address] [place] [address] 02/24/2025 3:00 PM EDT Treatment [facility] [address] [facility] [place] [address] Melisa Rocha, AUTOMOBILE RACER [address] [place] [address] 07/25/2025 8:15 AM EST Office Visit [facility] [address] [place] [address] Yaniv Thompson NP [address] [place], [place] [phone] documented as of this encounter Visit Diagnoses Not on filedocumented in this encounter Care Teams Electronic Tech Relationship Specialty Start Date End Date Aman Mathias MD PCP - General Family Medicine 04/08/24 Buffy Chung NP Nurse Practitioner Family Medicine 08/07/23 documented as of this encounter
--- OUTSIDE RECORDS SUMMARY | 2025-02-18 11:44 | XMS_ITS | Encounter Summary ---
Author Organization [facility] Address [address] [place] [address] Care Team Providers Care Basket Assembler Name Role Phone William Cavazos MD, PhD Unavailable [phone] Karl Gonzalezard Primary Care Provider Paula Tuttle RN Unavailable UnavailIsrael Armstrong RN Unavailable Unavailable Aman Mathias MD Primary Care Provider [phone] Paula Tuttle RN Unavailable UnavailWilliam Goncalves MD, PhD Unavailable [phone] Aman Mathias MD Primary Care Provider [phone] Buffy Chung CNP Primary Care Provider [phone] Source Comments In the event this information is protected by the Federal Confidentiality of Alcohol and Drug AbusePatient Records regulations: The Federal rules restrict any use of the information to criminally investigate or prosecute any alcohol or drug abuse patient.[facility] Reason for Visit * Reason Comments Radiology CT Encounter Details Date Type Department Care Team (Late st Contact Info) Description 05/03/2019 Radiology Radiology [address] [address] Karl Gonzalez, [address] [facility] [place] [address] Social History Tobacco Use Types Packs/Day Years [...] on filedocumented in this encounter Care Teams Basket Assembler Relationship Specialty Start Date End Date Karl Gonzalez DO [address] [place] [address] PCP - General Family Medicine 03/12/16 04/30/20 Aman Mathias MD [address] [place] [address] PCP - General Family Medicine 05/01/20 09/02/21 Aman Mathias MD [address] [place] [address] PCP - General Family Medicine 09/03/21 09/14/23 Buffy Chung, [facility] [address] [place] [address] PCP - General Family Medicine 09/15/23 William Cavazos MD, PhD [address] [place] [address] Physician Hematology/Oncology 11/29/14 04/30/20 Paula Tuttle, MOISÉS [address] [place] [address] Research Nurse Hematology/Oncology 05/19/17 01/31/20 Israel Hanson RN Specialty Nursing Associate Hematology/Oncology 03/10/20 04/30/20 Paula Tuttle, MOISÉS [address] [place] [address] Research Nurse Hematology/Oncology 06/05/20 [place] [address] [place] [address] Physician Hematology/Oncology 06/05/20 documented as of this encounter
--- OUTSIDE RECORDS SUMMARY | 2025-02-18 11:44 | XMS_ITS | Encounter Summary ---
Author Organization [facility] Address [address] [place] [address] Care Team Providers Care Form Setter Steel Forms Name Role Phone Aman Mathias MD Primary Care Provider [phone] Aman Mathias MD Primary Care Provider [phone] Buffy Chung SHOE SALESPERSON Unavailable [phone] Unallocated, Noms Provider Primary Care Provi hal Aman Mathias MD Primary Care Provider [phone] Encounter Details Date Type Department Care Team (Late st Contact Info) Description 06/13/2023 Clinisync Result Encounter [facility] External Department Unsolicited [...] Info) Description 02/22/2025 3:00 PM EDT Treatment [facility] [address] [place] [address] Melisa Rocha PTA [address] [place] [address] 02/24/2025 3:00 PM EDT Treatment [facility] [address] [place] [address] Melisa Rocha PTA [address] [place], [place] [address] 07/25/2025 8:15 AM EST Office Visit [facility] [address] [facility] [facility] [place] [address] Yaniv Thompson, YANE [address] [place] [address] documented as of this encounter Procedures Procedure Name Priority Date/Time Associated Diagnosis Comments XR SHLDR 4V AP/MAIKOL/LAT/OUTLET RT 06/13/2023 10:37 AM EST documented in this encounter Results * XR SHLDR 4V AP/MAIKOL/LAT/OUTLET RT (06/13/2023 10:37 AM EST) Anatomical Region Laterality Modality Other 06/13/2023 10:3 7 AM EST Narrative 06/15/2023 10:35 PM EST * * *Final Report* * * DATE [...] (projections): 4 M: XB_1 COMPARISON: None RESULT/ IMPRESSION: Moderate glenohumeral and acromioclavicular joint degenerative changes with joint space narrowing and osteophytes. No acute fracture or dislocation. Subacromial space is maintained. No other significant abnormality. Railway Traction Line Worker: PSCB Transcribe Date/Time: Jun 15 2023 10:32P Dictated by : TAYLOR CORONA MD This examination was interpreted and the report reviewed and electronically signed by: TAYLOR CORONA MD on Jun 15 2023 10:33PM EST [id number] Procedure Note Radiology, Radiologist, - 06/15/2023 * * *Final Report* * [...] (projections): 4 M: XB_1 COMPARISON: None RESULT/ IMPRESSION: Moderate glenohumeral and acromioclavicular joint degenerative changes with joint space narrowing and osteophytes. No acute fracture or dislocation. Subacromial space is maintained. No other significant abnormality. Railway Traction Line Worker: PSCB Transcribe Date/Time: Jun 15 2023 10:32P Dictated by : TAYLOR CORONA MD This examination was interpreted and the report reviewed and electronically signed by: TAYLOR CORONA MD on Jun 15 2023 10:33PM EST [id number] us Generic External Data Provider [facility] Final Result documented in this encounter Visit Diagnoses Not on filedocumented in this encounter Care Teams Form Setter Steel Forms Relationship Specialty Start Date End Date Aman Mathias MD PCP - General Family Medicine 11/27/22 08/06/23 Aman Mathias MD PCP - General Family Medicine 08/07/23 03/30/24 Unallocated, Noms MD Rajesh [address] [place] [address] PCP - General Family Medicine 03/31/24 04/07/24 Aman Mathias MD PCP - General Family Medicine 04/08/24 Buffy Chung NP Nurse Practitioner Family Medicine 08/07/23 documented as of this encounter
--- OUTSIDE RECORDS SUMMARY | 2025-02-18 11:44 | XMS_ITS | Encounter Summary ---
Author Organization [facility] Address [facility] [place] [address] [place] [address] Care Team Providers Care Bracelet And Brooch Maker Name Role Phone Buffy Chung APRN-INSPECTOR WREATH Primary Care Provider Encounter Details Date Type Department Care Team (Late st Contact Info) Description 04/29/2023 Telephone [facility] [address] [place] [address] Connie Loza Social History Tobacco Use Types Packs/Day Years [...] Department Care Team (Late Contact Info) Description 02/25/2025 3:00 PM EDT Appointment [facility] - Cardiovascular [address] [place] [address] Mal Coello MD [address] [place] [address] documented as of this encounter Visit Diagnoses Not on filedocumented in this encounter Care Teams Bracelet And Brooch Maker Relationship Specialty Start Date End Date Buffy Chung, HEALTH BENEFITS SPECIALIST-INSPECTOR WREATH PCP - General Nurse Practitioner 05/19/24 documented as of this encounter
--- OUTSIDE RECORDS SUMMARY | 2025-02-18 11:44 | XMS_ITS | Encounter Summary ---
Author Organization [facility] Address [address] [place] [address] Care Team Providers Care Snaker Driving Horses Name Role Phone Aman Mathias MD Primary Care Provider [phone] Aman Mathias MD Primary Care Provider [phone] Buffy Chung PHLEBOTOMY TECH Unavailable [phone] Unallocated, Noms Provider Primary Care Provi hal Aman Mathias MD Primary Care Provider [phone] Encounter Details Date Type Department Care Team (Late st Contact Info) Description 06/08/2023 Abstract [facility] [address] [place] [address] Buffy Chung, PHLEBOTOMY TECH [address] [place] [address] Social History Tobacco Use Types Packs/Day Years [...] Info) Description 02/22/2025 3:00 PM EDT Treatment [facility] [address] [place] [address] Melisa Rocha, INDOOR PLANT TECHNICIAN [address] [place] [address] 02/24/2025 3:00 PM EDT Treatment [facility] [place] [address] [place] [address] Melisa Rocha, INDOOR PLANT TECHNICIAN [address] [place] [address] 07/25/2025 8:15 AM EST [facility] [place] [facility] [address] [facility] [place] [address] Yaniv Thompson, PHLEBOTOMY TECH [address] [place], [place] [address] documented as of this encounter Visit Diagnoses Not on filedocumented in this encounter Care Teams Snaker Driving Horses Relationship Specialty Start Date End Date Aman Mathias MD PCP - General Family Medicine 11/27/22 08/06/23 Aman Mathias MD PCP - General Family Medicine 08/07/23 03/30/24 Unallocated, Aguilar Mena MD [address] [place] [address] PCP - General Family Medicine 03/31/24 04/07/24 Aman Mathias MD PCP - General Family Medicine 04/08/24 Buffy Chung NP Nurse Practitioner Family Medicine 08/07/23 documented as of this encounter
--- OUTSIDE RECORDS SUMMARY | 2025-02-18 11:44 | XMS_ITS | Encounter Summary ---
Author Organization [facility] Address [address] [place] [address] Care Team Providers Care Administrative Assistant Office Manager Name Role Phone Paula Tuttle RN Unavailable UnavailWilliam Goncalves MD, PhD Unavailable [phone] Buffy Chung CNP Primary Care Provider [phone] Source Comments In the event this information is protected by the Federal Confidentiality of Alcohol and Drug AbusePatient Records regulations: The Federal rules restrict any use of the information to criminally investigate or prosecute any alcohol or drug abuse patient.[facility] Encounter Details Date Type Department Care Team (Late st Contact Info) Description 03/12/2024 Patient Msg [facility] [address] [place] [address] Provider, [facility] Instructions for upcoming procedure Friday03/19/24 Social History Tobacco Use Types Packs/Day Years [...] is lower risk 7 10/15/2022 Data from: https://www.neighborhoodatlas.[facility]/. Last address used for calculation [address] 10/15/2022 Sex and Gender Information Value [...] on filedocumented in this encounter Care Teams Administrative Assistant Office Manager Relationship Specialty Start Date End Date Buffy Chung, REGISTERED NURSE STEP DOWN [address] [place] [address] PCP - General Family Medicine 09/15/23 Paula Tuttle, RN [address] [place] [address] Research Nurse Hematology/Oncology 06/05/20 [place] [address] [place] [address] Physician Hematology/Oncology 06/05/20 documented as of this encounter
--- OUTSIDE RECORDS SUMMARY | 2025-02-18 11:44 | XMS_ITS | Encounter Summary ---
Author Organization [facility] Address [address] [place] [address] Care Team Providers Care Group Exercise Manager Name Role Phone William Cavazos MD, PhD Unavailable [phone] Karl Gonzalez DO Primary Care Provider Paula Tuttle RN Unavailable UnavailIsrael Armstrong RN Unavailable Unavailable Aman Mathias MD Primary Care Provider [phone] Paula Tuttle RN Unavailable UnavailWilliam Goncalves MD, PhD Unavailable [phone] Aman Mathias MD Primary Care Provider [phone] Buffy Chung CNP Primary Care Provider [phone] Source Comments In the event this information is protected by the Federal Confidentiality of Alcohol and Drug AbusePatient Records regulations: The Federal rules restrict any use of the information to criminally investigate or prosecute any alcohol or drug abuse patient.[facility] Encounter Details Date Type Department Care Team (Late st Contact Info) Description 04/12/2019 Get Medical Advice Hematology/Oncology [address] [place] [address] William [place]az[place] [address] [place] [address] RE: Test Result Question Social History Tobacco Use Types Packs/Day [...] on filedocumented in this encounter Care Teams Group Exercise Manager Relationship Specialty Start Date End Date Karl Gonzalez DO [address] [place] [address] PCP - General Family Medicine 03/12/16 04/30/20 Aman Mathias MD [address] [place] [address] PCP - General Family Medicine 05/01/20 09/02/21 Aman Mathias MD [address] [place] [address] PCP - General Family Medicine 09/03/21 09/14/23 Buffy Chung, REPORTS ANALYSIS MANAGER [address] [place] [address] PCP - General Family Medicine 09/15/23 William Cavazos MD, PhD [address] [place] [address] Physician Hematology/Oncology 11/29/14 04/30/20 Paula Tuttle, RN [address] [place] [address] Research Nurse Hematology/Oncology 05/19/17 01/31/20 Israel Hanson RN Specialty Operations Logistics Analyst Hematology/Oncology 03/10/20 04/30/20 Paula Tuttle, RN [address] [place] [address] Research Nurse Hematology/Oncology 06/05/20 [place] [address] [place] [address] Physician Hematology/Oncology 06/05/20 documented as of this encounter
--- OUTSIDE RECORDS SUMMARY | 2025-02-18 11:44 | XMS_ITS | Encounter Summary ---
Author Organization [facility] Address [address] [place] [address] Care Team Providers Care Innovation Manager Name Role Phone William Cavazos MD, PhD Unavailable [phone] Sonya Croft (Rn) (Hist) RN Unavailable U Karl Allen DO Primary Care Provider Navjot Gonzáles RN Unavailable [phone] Paula Tuttle RN Unavailable UnavailIsrael Armstrong RN Unavailable Unavailable Aman Mathias MD Primary Care Provider [phone] Paula Tuttle RN Unavailable UnavailWilliam Goncalves MD, PhD Unavailable [phone] Aman Mathias MD Primary Care Provider [phone] Buffy Chung CNP Primary Care Provider [phone] Source Comments In the event this information is protected by the Federal Confidentiality of Alcohol and Drug AbusePatient Records regulations: The Federal rules restrict any use of the information to criminally investigate or prosecute any alcohol or drug abuse patient.[facility] Encounter Details Date Type Department Care Team (Late st Contact Info) Description 10/23/2016 Patient Msg Medical Records [address] [place] [address] Provider, Ccf Registration Social History Tobacco Use Types Packs/Day Years [...] on filedocumented in this encounter Care Teams Innovation Manager Relationship Specialty Start Date End Date Karl Gonzalez DO [address] [place] [place] [address] PCP - General Family Medicine 03/12/16 04/30/20 Aman Mathias MD [address] [place] [address] PCP - General Family Medicine 05/01/20 09/02/21 Aman Mathias MD [address] [place] [address] PCP - General Family Medicine 09/03/21 09/14/23 Buffy Chung, FINISHING WIRE SAWYER [address] [place] [address] PCP - General Family Medicine 09/15/23 William Cavazos MD, PhD [address] [place] [id number] Physician Hematology/Oncology 11/29/14 04/30/20 Sonya Croft (Rn) (Hist), RN Specialty Post Form Remover Oncology 11/29/14 05/18/17 Navjot [place] [address] [place] [address] Specialty Post Form Remover Oncology 03/20/16 05/18/17 Paula Tuttle, MOISÉS [address] [place] [address] Research Nurse Hematology/Oncology 05/19/17 01/31/20 Israel Hanson RN Specialty Post Form Remover Hematology/Oncology 03/10/20 04/30/20 Paula Tuttle, MOISÉS [address] [place] [address] Research Nurse Hematology/Oncology 06/05/20 [place] [address] [place] [id number] Physician Hematology/Oncology 06/05/20 documented as of this encounter
--- OUTSIDE RECORDS SUMMARY | 2025-02-18 11:44 | XMS_ITS | Encounter Summary ---
Author Organization [facility] Address [address] [place] [address] Care Team Providers Care Forest Fire Lookout Name Role Phone William Cavazos MD, PhD Unavailable [phone] Karl Gonzalez DO Primary Care Provider Paula Tuttle RN Unavailable UnavailIsrael Armstrong RN Unavailable Unavailable Aman Mathias MD Primary Care Provider [phone] Paula Tuttle RN Unavailable UnavailWilliam Goncalves MD, PhD Unavailable [phone] Aman Mathias MD Primary Care Provider [phone] Buffy Chung CNP Primary Care Provider [phone] Source Comments In the event this information is protected by the Federal Confidentiality of Alcohol and Drug AbusePatient Records regulations: The Federal rules restrict any use of the information to criminally investigate or prosecute any alcohol or drug abuse patient.[facility] Encounter Details Date Type Department Care Team (Late st Contact Info) Description 04/29/2019 Patient Msg Angio [address] [place] [address] Provider, Ccf appointment 05/03 Social History Tobacco Use Types Packs/Day Years [...] on filedocumented in this encounter Care Teams Forest Fire Lookout Relationship Specialty Start Date End Date Karl Gonzalez DO [address] [facility] [place] [address] PCP - General Family Medicine 03/12/16 04/30/20 Aman Mathias MD [address] [place] [address] PCP - General Family Medicine 05/01/20 09/02/21 Aman Mathias MD [address] [place] [address] PCP - General Family Medicine 09/03/21 09/14/23 Buffy Chung, LIFESTYLE DIRECTOR [address] [place] [address] PCP - General Family Medicine 09/15/23 William Cavazos MD, PhD [address] [facility] [place] [address] Physician Hematology/Oncology 11/29/14 04/30/20 Paula Tuttle, MOISÉS [address] [place] [address] Research Nurse Hematology/Oncology 05/19/17 01/31/20 Israel Hanson, RN Specialty Sports Equipment Repairer Hematology/Oncology 03/10/20 04/30/20 Paula Tuttle, MOISÉS [address] [place] [address] Research Nurse Hematology/Oncology 06/05/20 [place] [address] [place] [address] Physician Hematology/Oncology 06/05/20 documented as of this encounter
--- OUTSIDE RECORDS SUMMARY | 2025-02-18 11:45 | XMS_ITS | Encounter Summary ---
Author Organization [facility] Address [address] [place] [address] Care Team Providers Care Brushing Operator Name Role Phone William Cavazos MD, PhD Unavailable [phone] Karl Gonzalez DO Primary Care Provider Paula Tuttle RN Unavailable UnavailIsrael Armstrong RN Unavailable Unavailable Aman Mathias MD Primary Care Provider [phone] Paula Tuttle RN Unavailable UnavailWilliam Goncalves MD, PhD Unavailable [phone] Aman Mathias MD Primary Care Provider [phone] Buffy Chung CNP Primary Care Provider [phone] Source Comments In the event this information is protected by the Federal Confidentiality of Alcohol and Drug AbusePatient Records regulations: The Federal rules restrict any use of the information to criminally investigate or prosecute any alcohol or drug abuse patient.[facility] Encounter Details Date Type Department Care Team (Late st Contact Info) Description 09/26/2017 Patient Msg Medical Records [address] [place], [place] [address] [place] [address] Provider, Cc Vitamin D Social History Tobacco Use Types Packs/Day Years [...] of Assessment Author No 11/23/2014 3:20 PM eBty Patton RN * Do you have serious difficulty walking or climbing stairs? Answer Date of Assessment Author No 11/23/2014 3:20 PM Bety Patton RN * Do you have difficulty dressing or bathing? Answer Date of Assessment Author No 11/23/2014 3:20 PM EDBety Land RN * Because of a physical, mental, [...] on filedocumented in this encounter Care Teams Brushing Operator Relationship Specialty Start Date End Date Karl Gonzalez DO [address] [place] [address] PCP - General Family Medicine 03/12/16 04/30/20 Aman Mathias MD [address] [place] [address] PCP - General Family Medicine 05/01/20 09/02/21 Aman Mathias MD [address] [place] [address] PCP - General Family Medicine 09/03/21 09/14/23 Buffy Chung, CAR MOVER [address] [place], [place] [address] PCP - General Family Medicine 09/15/23 William Cavazos MD, PhD [address] [facility] [place] [id number] Physician Hematology/Oncology 11/29/14 04/30/20 Paula Tuttle, RN [address] [place] [address] Research Nurse Hematology/Oncology 05/19/17 01/31/20 Israel Hanson, RN Specialty Tactical Air Control Party Manager Hematology/Oncology 03/10/20 04/30/20 Paula Tuttle, RN [address] [place] [address] Research Nurse Hematology/Oncology 06/05/20 [place] [address] [place] [address] Physician Hematology/Oncology 06/05/20 documented as of this encounter
--- OUTSIDE RECORDS SUMMARY | 2025-02-18 11:45 | XMS_ITS | Encounter Summary ---
Author Organization [facility] Address [address] [place] [address] Care Team Providers Care Manager Of Global Name Role Phone William Cavazos MD, PhD Unavailable [phone] Karl Gonzalez DO Primary Care Provider Paula Tuttle RN Unavailable UnavailIsrael Armstrong RN Unavailable Unavailable Aman Mathias MD Primary Care Provider [phone] Paula Tuttle RN Unavailable UnavailWilliam Goncalves MD, PhD Unavailable [phone] Aman Mathias MD Primary Care Provider [phone] Buffy Chung CNP Primary Care Provider [phone] Source Comments In the event this information is protected by the Federal Confidentiality of Alcohol and Drug AbusePatient Records regulations: The Federal rules restrict any use of the information to criminally investigate or prosecute any alcohol or drug abuse patient.[facility] Encounter Details Date Type Department Care Team (Late st Contact Info) Description 08/14/2017 Patient Msg Medical Records [address] [place], [place] [address] [place] [address] Provider, Ccf derm appt tomorrow 11:00 a.m. 08/15 Social History Tobacco Use Types Packs/Day [...] 3:20 PM FARIHAT Bety Kumar RN * Do you have [...] on filedocumented in this encounter Care Teams Manager Of Global Relationship Specialty Start Date End Date Karl Gonzalez DO [address] [place] [address] PCP - General Family Medicine 03/12/16 04/30/20 Aman Mathias MD [address] [place] [address] PCP - General Family Medicine 05/01/20 09/02/21 Aman Mathias MD [address] [place] [address] PCP - General Family Medicine 09/03/21 09/14/23 Buffy Chung, RAMP SERVICE EMPLOYEE [address] [place] [address] PCP - General Family Medicine 09/15/23 William Cavazos MD, PhD [address] [place] [address] Physician Hematology/Oncology 11/29/14 04/30/20 Paula Tuttle, RN [address] [place] [address] Research Nurse Hematology/Oncology 05/19/17 01/31/20 Israel Hanson, RN Specialty Director Decision Support Hematology/Oncology 03/10/20 04/30/20 Paula Tuttle, RN [address] [place] [address] Research Nurse Hematology/Oncology 06/05/20 [place] [address] [place] [address] Physician Hematology/Oncology 06/05/20 documented as of this encounter
--- OUTSIDE RECORDS SUMMARY | 2025-02-18 11:45 | XMS_ITS | Encounter Summary ---
Author Organization [facility] Address [address] [place] [address] Care Team Providers Care Laboratory Administrative Director Name Role Phone Paula Tuttle RN Unavailable UnavailWilliam Goncalves MD, PhD Unavailable [phone] Aman Mathias MD Primary Care Provider [phone] Buffy Chung CNP Primary Care Provider [phone] Source Comments In the event this information is protected by the Federal Confidentiality of Alcohol and Drug AbusePatient Records regulations: The Federal rules restrict any use of the information to criminally investigate or prosecute any alcohol or drug abuse patient.[facility] Reason for Visit * Reason Comments Radiology XR Encounter Details Date Type Department Care Team (Late st Contact Info) Description 06/13/2023 Radiology Radiology [address] [place], [place] [id number] Kelle Pacheco RT(R) Radiology XR Social History Tobacco Use Types Packs/Day Years [...] is lower risk 7 10/15/2022 Data from: https://www.neighborhoodatlas.medicine.[facility]/. Last address used for calculation [address] [...] Bety Patton RN documented in this encounter Progress Notes * Kelle Pacheco RT(R) - 06/13/2023 10:35 AM EST Radiology Service Progress Note PATIENT NAME: Zachary Avitia JR DATE OF SERVICE: June 13, 2023 TIME: 10:35 AM PATIENT IDENTITY VERIFICATION COMPLETED USING TWO (2) IDENTIFIERS: Name and Date of confirmedby patient verbally. FALL SCREENING: Has the patient had 2 falls in the last year or 1 fall with injury or currently using an Ambulatory Assistive Device (Walker, Cane, Wheelchair, Crutches, etc.)? No PATIENT GENDER DATA: Male PATIENT RELEVANT IMPLANT DATA REVIEWED: Not Applicable RADIOLOGY DEPARTMENT: General X-ray: Exam(s) Completed: Upper Extremity X- Ray(s): Shoulder, AP / TRUE AP / AXILLARY / SUPRA OUTLET right PERIPHERAL IV DATA: Not applicable SIGNED BY: RT Annika(R) June 13, 2023 10:35 AM documented in this encounter Plan of Treatment Not on file documented as of this encounter Visit Diagnoses Not on filedocumented in this encounter Care Teams Laboratory Administrative Director Relationship Specialty Start Date End Date Aman Mathias MD [address] [place] [address] PCP - General Family Medicine 09/03/21 09/14/23 Buffy Chnug, DRY ROOM ATTENDANT [address] [place] [address] PCP - General Family Medicine 09/15/23 Paula Tuttle, MOISÉS [address] [place] [address] Research Nurse Hematology/Oncology 06/05/20 [place] [address] [place] [address] Physician Hematology/Oncology 06/05/20 documented as of this encounter
--- OUTSIDE RECORDS SUMMARY | 2025-02-18 11:45 | XMS_ITS | Encounter Summary ---
Author Organization [facility] Address [address] [place] [address] Care Team Providers Care Tight Rope Walker Name Role Phone Buffy Chung NP Unavailable [phone] Aman Mathias MD Primary Care Provider [phone] Encounter Details Date Type Department Care Team (Late st Contact Info) Description 06/16/2024 Clinisync Result Encounter [facility] External Department Unsolicited [...] 02/22/2025 3:00 PM EDT Treatment [facility] [address] [place] [id number] Melisa Rocha, SUPPLY CHAIN VICE PRESIDENT [address] [place] [address] 02/24/2025 3:00 PM EDT Treatment [facility] [address] [place] [phone] Melisa Rocha, SUPPLY CHAIN VICE PRESIDENT [address] [place] [address] 07/25/2025 8:15 AM EST Office Visit [facility] [address] [place] [address] Yaniv Thompson, TELECOM ASSISTANT [address] [place], [place] [id number] documented as of this encounter Procedures Procedure Name Priority Date/Time Associated Diagnosis Comments ECHO 06/16/2024 12:59 PM EST [facility] BCR/ABL1 P210 QUANTITATIVE PCR BLOOD Routine 06/16/2024 9:29 AM EST MISC SEND OUT TST 1 Routine 06/16/2024 9 :29 AM EST [facility] BCR/ABL1 P210 %IS PANEL Routine 06/16/2024 9:29 AM EST documented in this encounter Results * ECHO (06/16/2024 12:59 PM EST) Anatomical Region Laterality Modality Other 06/16/2024 12:5 9 PM EST Narrative 06/16/2024 1:37 PM EST Echocardiography Report: Transthoracic Echo [facility] J35 Date of service: 06/16/2024 12:59:29 PM DOCK CHECKER Ordering physician: GEORGIANA COLBY Indication: Baseline and serial evaluation in a patient undergoing therapy with cardiotoxic agents Technologist: Yolis Avilez [facility] Interpreting physician: Berry Yuan MD PATIENT: Name: MR. DERRELL MERRITT JR : 1970 Age: 53 years Gender: M Primary rhythm: sinus. Height: 177.80 cm BSA: 2.43 m? Weight: 119.90 kg BMI: 37.9 kg/m? Blood pressure 145/81 mmHg Technically difficult exam due to body habitus. Color Doppler was utilized to interrogate the cardiac valves assessed and spectral Doppler was utilized to determine the flow velocities and pressure gradients reported in this exam. Myocardial strain analysis was performed in this exam to aid in the assessment of cardiac function. MEASUREMENTS: Value Indexed Normal Max aortic dimension 4.2 cm Ao < 3.8 LV ID (diastole) 4.1 cm (2D) 1.68 cm/m? LV ID (systole) 2.2 cm (2D) 0.91 cm/m? IVS, leaflet tips 1.8 cm (2D) Posterior wall thickness 1.0 cm (2D) Left ventricular mass 211 g (2D) 87 g/m? Global peak long strain -16.9 % LV stroke volume 80 ml (2D biplane) LV end diastolic volume 136 ml (2D biplane) 55.9 ml/m? 34<=EDVi<75 LV end systolic volume 56 ml (2D biplane) 23.2 ml/m? Ejection Fraction 59 % (2D biplane) EF > 52 FINDINGS: LEFT VENTRICLE The left ventricle is normal in size. There is septal left ventricular hypertrophy. Left ventricular systolic function is normal. Global LV myocardial strain is normal. Grade I left ventricular diastolic dysfunction. Mitral annular lateral E/e': 7.3. Mitral annular septal E/e': 10.7. Wall Motion: All scored segments are normal. RIGHT VENTRICLE The right ventricle is normal in size. Right ventricular systolic function is normal. RV systolic tissue Doppler velocity is 20.5 cm/s. Estimated right ventricular systolic pressure is not reported due to an insufficient tricuspid regurgitation signal. Estimated right atrial pressure is 3 mmHg based on IVC assessment. RIGHT ATRIUM Inferior Vena Cava: The inferior vena cava appears normal measuring 1.9 cm. The vessel decreases greater than 50 percent with inspiration. MITRAL VALVE There is no thickening. The pressure half time is 92 msec. The peak mitral E/A ratio is 0.82. The mitral flow deceleration time is 318 msec. TRICUSPID VALVE The tricuspid valve leaflets are structurally normal. There is trace tricuspid valve regurgitation. AORTIC VALVE There is trace aortic valve regurgitation. Tricuspid aortic valve. There is mild thickening. The peak gradient is 7 mmHg (peak velocity = 135.3 cm/s). After valsalva, the peak dynamic gradient is 7 mmHg. PULMONIC VALVE The pulmonic valve cusps are structurally normal. There is trace pulmonic valve regurgitation. AORTA The visualized aorta is dilated. Measurements - Sinus: 4.2 cm. Sinotubular junction 3.6 cm. Mid ascending aorta 3.9 cm. PERICARDIUM There is no pericardial effusion. There is an epicardial fat pad. CONCLUSIONS: - Technically difficult exam due to body habitus. - Exam indication: Baseline and serial evaluation in a patient undergoing therapy with cardiotoxic agents - The left ventricle is normal in size. There is septal left ventricular hypertrophy. Left ventricular systolic function is normal. EF = 59 ? 5% (2D biplane) GLS= - 16.9%. Prior GLS -16.9%. - The right ventricle is normal in size. Right ventricular systolic function is normal. - The visualized aorta is dilated with a maximal dimension of 4.2 cm. - There are no significant valvular abnormalities. - Exam was compared with the prior CC echocardiographic exam performed on 03/17/2024. Similar findings. * * * Final * * * [facility] : [id number]^SyngoDynamics^SI^SUID Procedure Note Radiology, Radiologist, MD - 06/16/2024 Echocardiography Report: Transthoracic Echo [facility] J35 Date of service: 06/16/2024 12:59:29 PM DOCK CHECKER Ordering physician: GEORGIANA COLBY Indication: Baseline and serial evaluation in a patient undergoing therapywith cardiotoxic agents Technologist: Yolis Avilez [facility] Interpreting physician: Berry Yuan MD PATIENT: Name: MR. DERRELL MERRITT JR : 1970 Age: 53 years Gender: M Primary rhythm: sinus. Height: 177.80 cm BSA: 2.43 m? Weight: 119.90 kg BMI: 37.9 kg/m? Blood pressure 145/81 mmHg Technically difficult exam due to body habitus. Color Doppler was utilized to interrogate the cardiac valves assessed andspectral Doppler was utilized to determine the flow velocities andpressure gradients reported in this exam. Myocardial strain analysis wasperformed in this exam to aid in the assessment of cardiac function. MEASUREMENTS: Value Indexed Normal Max aortic dimension 4.2 cm Ao < 3.8 LV ID (diastole) 4.1 cm (2D) 1.68 cm/m? LV ID (systole) 2.2 cm (2D) 0.91 cm/m? IVS, leaflet tips 1.8 cm (2D) Posterior wall thickness 1.0 cm (2D) Left ventricular mass 211 g (2D) 87 g/m? Global peak long strain -16.9 % LV stroke volume 80 ml (2D biplane) LV end diastolic volume 136 ml (2D biplane) 55.9 ml/m? 34<=EDVi<75 LV end systolic volume 56 ml (2D biplane) 23.2 ml/m? Ejection Fraction 59 % (2D biplane) EF > 52 FINDINGS: LEFT VENTRICLE The left ventricle is normal in size. There is septal left ventricular hypertrophy. Left ventricular systolic function is normal. Global LV myocardial strainis normal. Grade I left ventricular diastolic dysfunction. Mitral annular lateral E/e': 7.3. Mitral annular septal E/e': 10.7. Wall Motion: All scored segments are normal. RIGHT VENTRICLE The right ventricle is normal in size. Right ventricular systolic function is normal. RV systolic tissue Dopplervelocity is 20.5 cm/s. Estimated right ventricular systolic pressure is not reported due to aninsufficient tricuspid regurgitation signal. Estimated right atrialpressure is 3 mmHg based on IVC assessment. RIGHT ATRIUM Inferior Vena Cava: The inferior vena cava appears normal measuring 1.9 cm. The vesseldecreases greater than 50 percent with inspiration. MITRAL VALVE There is no thickening. The pressure half time is 92 msec. The peak mitralE/A ratio is 0.82. The mitral flow deceleration time is 318 msec. TRICUSPID VALVE The tricuspid valve leaflets are structurally normal. There is tracetricuspid valve regurgitation. AORTIC VALVE There is trace aortic valve regurgitation. Tricuspid aortic valve. Thereis mild thickening. The peak gradient is 7 mmHg (peak velocity = 135.3cm/s). After valsalva, the peak dynamic gradient is 7 mmHg. PULMONIC VALVE The pulmonic valve cusps are structurally normal. There is trace pulmonicvalve regurgitation. AORTA The visualized aorta is dilated. Measurements - Sinus: 4.2 cm. Sinotubular junction 3.6 cm. Mid ascendingaorta 3.9 cm. PERICARDIUM There is no pericardial effusion. There is an epicardial fat pad. CONCLUSIONS: - Technically difficult exam due to body habitus. - Exam indication: Baseline and serial evaluation in a patient undergoingtherapy with cardiotoxic agents - The left ventricle is normal in size. There is septal left ventricularhypertrophy. Left ventricular systolic function is normal. EF = 59 ? 5%(2D biplane) GLS= - 16.9%. Prior GLS -16.9%. - The right ventricle is normal in size. Right ventricular systolicfunction is normal. - The visualized aorta is dilated with a maximal dimension of 4.2 cm. - There are no significant valvular abnormalities. - Exam was compared with the prior echocardiographic exam performed on03/17/2024. Similar findings. * * * Final * * * [facility] :[id number]^SyngoDynamics^SI^SUID us Generic External Data Provider [facility] Final Result * MISC SEND OUT TST 1 (06/16/2024 9:29 AM EST) [facility] TEST 1 CCF Comment:Research [facility] TEST RESULTS 1 [facility]CF Comment:Research REFERRAL LAB 1 (DROP-DOWN) [facility]CF Comment:Research 06/16/2024 9:29 AM EST 06/16/2024 9:30 AM EST Narrative [facility] - 06/23/2024 10:01 AM EST Specimen Type: BLOOD SPECIMEN Ordering Facility: [facility] Address: [address] [place] [address] Original Ordering Provider: TYRONE HOWELL us Generic External Data Provider [facility] F inal Result [facility] * [facility] BCR/ABL1 P210 %IS PANEL (06/16/2024 9:29 AM EST) [facility] BCR/ABL1 P210 %IS 0.2795 [facility]CF [facility] BCR/ABL1 P210 MR 2.55 [facility] 06/16/2024 9:29 AM EST 06/16/2024 10:00 AM EST Narrative [facility] - 06/21/2024 9:16 AM EST Specimen Type: BLOOD SPECIMEN Ordering Facility: [facility] Address: [address] [place] [address] Original Ordering Provider: TYRONE HOWELL us Generic External Data Provider [facility]IN[facility] F inal Result [facility] [address] [facility] [address] [place] [address] * [facility] BCR/ABL1 P210 QUANTITATIVE PCR BLOOD (06/16/2024 9:29 AM EST) Pathologist [facility] BCR/ABL1 P210 INTERPRETATION CCF Comment: BCR/ABL1 p210 Quantitative PCR Laboratory Accession Number: [id number] Result: DETECTED MR: 2.55 %IS: 0.2795 Interpretation: p210 BCR/ABL1 transcripts were detected. Quantitative results are expressed on the International Scale (IS) and a log molecular response (MR) is calculated. On this scale, a value of less than or equal to 0.1% corresponds to a major molecular response (MMR or MR3.0). Methodology: The [employer] QuantideX BCR/ABL IS assay is an FDA-cleared [...] et al, Leukemia 2015;29:999-1003 As reviewed by Yancy Araya MD 06/16/2024 9:29 AM EST 06/16/2024 11:28 AM EST Narrative [facility] - 06/18/2024 5:39 PM EST Specimen Type: BLOOD SPECIMEN Ordering Facility: [facility] Address: [address] [place] [address] Original Ordering Provider: TYRONE HOWELL us Generic External Data Provider TREVOR Larsen inal Result TRE[facility] [address] [address] documented in this encounter Visit Diagnoses Not on filedocumented in this encounter Care Teams Tight Rope Walker Relationship Specialty Start Date End Date Aman Mathias MD PCP - General Family Medicine 04/08/24 Buffy Chung NP Nurse Practitioner Family Medicine 08/07/23 documented as of this encounter
--- OUTSIDE RECORDS SUMMARY | 2025-02-18 11:45 | XMS_ITS | Encounter Summary ---
Author Organization [facility] Address [address] [place] [address] Care Team Providers Care Summer Law Associate Name Role Phone William Cavazos MD, PhD Unavailable [phone] Karl Gonzalez DO Primary Care Provider Paula Tuttle RN Unavailable UnavailIsrael Armstrong RN Unavailable Unavailable Aman Mathias MD Primary Care Provider [phone] Paula Tuttle RN Unavailable UnavailWilliam Goncalves MD, PhD Unavailable [phone] Aman Mathias MD Primary Care Provider [phone] Buffy Chung CNP Primary Care Provider [phone] Source Comments In the event this information is protected by the Federal Confidentiality of Alcohol and Drug AbusePatient Records regulations: The Federal rules restrict any use of the information to criminally investigate or prosecute any alcohol or drug abuse patient.[facility] Encounter Details Date Type Department Care Team (Late st Contact Info) Description 06/30/2017 Patient Msg Medical Records [address] [place], [place] [address] [place] [address] Provider, [facility] 07/01 Social History Tobacco Use Types Packs/Day Years [...] on filedocumented in this encounter Care Teams Summer Law Associate Relationship Specialty Start Date End Date Karl Gonzalez DO [address] [place] [address] PCP - General Family Medicine 03/12/16 04/30/20 Aman Mathias MD [address] [place] [address] PCP - General Family Medicine 05/01/20 09/02/21 Aman Mathias MD [address] [place] [address] PCP - General Family Medicine 09/03/21 09/14/23 Buffy Chung, COLLAR TURNER OPERATOR [address] [place], [place] [address] PCP - General Family Medicine 09/15/23 William Cavazos MD, PhD [address] [place] [id number] Physician Hematology/Oncology 11/29/14 04/30/20 Paula Tuttle, RN [address] [place] [address] Research Nurse Hematology/Oncology 05/19/17 01/31/20 Israel Hanson, RN Specialty Cigarette Paper Tester Hematology/Oncology 03/10/20 04/30/20 Paula Tuttle, RN [address] [place] [address] Research Nurse Hematology/Oncology 06/05/20 [place] [address] [place] [address] Physician Hematology/Oncology 06/05/20 documented as of this encounter
--- OUTSIDE RECORDS SUMMARY | 2025-02-18 11:45 | XMS_ITS | Encounter Summary ---
Author Organization [facility] Address [address] [place] [address] Care Team Providers Care Remote Computer Terminal Operator Name Role Phone Paula Tuttle RN Unavailable Unavailmerged [facility] William Clemons MD, PhD Unavailable [phone] Aman Mathias MD Primary Care Provider [phone] Buffy Chung CNP Primary Care Provider [phone] Source Comments In the event this information is protected by the Federal Confidentiality of Alcohol and Drug AbusePatient Records regulations: The Federal rules restrict any use of the information to criminally investigate or prosecute any alcohol or drug abuse patient.[facility] Reason for Visit * Reason Comments Research Reconsent for ACTG Encounter Details Date Type Department Care Team (Late st Contact Info) Description 08/05/2022 Abstract Hematology/Oncology [address] [place] [address] Ludy Kolb RN [address] [place], [place] [id number] Research (Reconsent for ACTG ) Social History Tobacco Use Types Packs/Day Years Used Date Smoking Tobacco: Never Smokeless Tobacco: Never Alcohol Use Standard Drinks/Week Comments Yes 0 (1 standard drink = 0.6 oz pur e alcohol) socially PHQ-2 Answer Date Recorded PHQ-2 score 1 06/11/2021 Area Deprivation Index Answer Date Juarez rded National Score (1-100), lower number is lower ri sk 90 06/24/2022 State Score (1-10), lower number is lower risk N ot on file 06/24/2022 Data from: https://www.neighborhoodatlas.medicine.[facility]/. Last address used for calculation [address] 06/24/2022 Sex and Gender Information Value Date Recorded [...] on filedocumented in this encounter Care Teams Remote Computer Terminal Operator Relationship Specialty Start Date End Date Aman Mathias MD [address] [place] [address] PCP - General Family Medicine 09/03/21 09/14/23 Buffy Chung, HOME HELP AIDE [address] [place] [address] PCP - General Family Medicine 09/15/23 Paula Tuttle, RN [address] [place] [address] Research Nurse Hematology/Oncology 06/05/20 [place] [address] [place] [address] Physician Hematology/Oncology 06/05/20 documented as of this encounter
--- OUTSIDE RECORDS SUMMARY | 2025-02-18 11:45 | XMS_ITS | Encounter Summary ---
Author Organization [facility] Address [address] [place] [address] Care Team Providers Care Yard Spotter Name Role Phone Paula Tuttle RN Unavailable UnavailWilliam Goncalves MD, PhD Unavailable [phone] Aman Mathias MD Primary Care Provider [phone] Buffy Chung CNP Primary Care Provider [phone] Source Comments In the event this information is protected by the Federal Confidentiality of Alcohol and Drug AbusePatient Records regulations: The Federal rules restrict any use of the information to criminally investigate or prosecute any alcohol or drug abuse patient.[facility] Reason for Visit * Reason Comments Radiology CT Encounter Details Date Type Department Care Team ([facility] Contact Info) Description 05/16/2022 Radiology Radiology [address] [place] [address] Aman Mathias MD [address] [place], [place] [address] Radiology CT Social History Tobacco Use Types [...] N ot on file 11/26/2021 Data from: https://www.neighborhoodatlas.[facility]/. Last address used for calculation [address] [...] suspected to have Coronavirus/COVID-19? No / Unsure 05/13/2022 11:07 AM EST documented as of this encounter [...] Bety Kumar RN documented in this encounter Progress Notes * Hyacinth Elliott RT(R) - 05/16/2022 9:12 AM EST Radiology Service Progress Note PATIENT NAME: Zachary Avitia JR DATE OF SERVICE: May 16, 2022 TIME: 9:12 AM PATIENT IDENTITY VERIFICATION COMPLETED USING TWO (2) IDENTIFIERS: Name and Date of confirmedby patient verbally and Name and Date of confirmed by identification band. FALL SCREENING: Has the patient had 2 falls in the last year or 1 fall with injury or currently using an Ambulatory Assistive Device (Walker, Cane, Wheelchair, Crutches, etc.)? Yes, Patient High Riskfor Falls What interventions were put in place to prevent falls during this visit? Yellow Falls Risk Wristband Applied, Increased Observations by Caregivers, and cart PATIENT GENDER DATA: Male PATIENT RELEVANT IMPLANT DATA REVIEWED: Yes RADIOLOGY DEPARTMENT: Biopsy and CT; Exam(s) Completed: Pelvis and Bone Marrow PERIPHERAL IV DATA: Not applicable SIGNED BY: RT Cristal(R) May 16, 2022 9:12 AM documented in this encounter Plan of Treatment Not on file documented as of this encounter Visit Diagnoses Not on filedocumented in this encounter Care Teams Yard Spotter Relationship Specialty Start Date End Date Aman Mathias MD [address] [place] [address] PCP - General Family Medicine 09/03/21 09/14/23 Buffy Chung, DEV OPS ENGINEER [address] [place] [address] PCP - General Family Medicine 09/15/23 Paula Tuttle, MOISÉS [address] [place] [address] Research Nurse Hematology/Oncology 06/05/20 [place] [address] [place] [address] Physician Hematology/Oncology 06/05/20 documented as of this encounter
--- OUTSIDE RECORDS SUMMARY | 2025-02-18 11:45 | XMS_ITS | Encounter Summary ---
Author Organization [facility] Address [id number] [address] [place] [address] Care Team Providers Care Occupational Hygienist Name Role Phone Buffy Chung APRN-RELEASE ENGINEER Primary Care Provider Reason for Referral * Cardiology (Routine) - Pending Review Specialty Diagnoses / Procedures Referred By Contac t Referred To Contact Cardiology Diagnoses Pain Procedures Non [facility] External [facility] Storage [facility] [place] [address] Phone: tel: fax: Referral ID Status Reason Start Date Expiration Date V isits Requested Visits Authorized [id number] Pending Review 02/02/2025 02/02/2026 1 1 Encounter Details Date Type Department Care Team (Late st Contact Info) Description 02/02/2025 Orders Only [facility] External [facility] [place] [address] External, Scanning Provider Pain (Primary Dx) Social History Tobacco Use [...] got money to buy more. Never True 10/21/2024 Within the past 12 months th e food we bought just didn't last and we didn't have money to get more. Never True 10/21/2024 Purpose - Life Answer Date Recorded Purpose [...] Info) Description 02/25/2025 3:00 PM EDT Appointment [facility] - Cardiovascular [address] [place] [address] Mal Coello MD [address] [place] [address] documented as of this encounter Results * Non [facility] (12/22/2024 12:40 PM EDT) us Scanning Provider External CV ECHO ORDERABLES Fi nal Result XCELERA documented in this encounter Visit Diagnoses Diagnosis Pain- Primary Generalized pain documented in this encounter Care Teams Occupational Hygienist Relationship Specialty Start Date End Date Buffy Chung, NAPPER FIXER-RELEASE ENGINEER PCP - General Nurse Practitioner 05/19/24 documented as of this encounter
--- OUTSIDE RECORDS SUMMARY | 2025-02-18 11:45 | XMS_ITS | Encounter Summary ---
Author Organization [facility] Address [address] [place] [address] Care Team Providers Care Analytical Data Scientist Name Role Phone Paula Tuttle RN Unavailable UnavailWilliam Goncalves MD, PhD Unavailable [phone] Aman Mathias MD Primary Care Provider [phone] Buffy Chung CNP Primary Care Provider [phone] Source Comments In the event this information is protected by the Federal Confidentiality of Alcohol and Drug AbusePatient Records regulations: The Federal rules restrict any use of the information to criminally investigate or prosecute any alcohol or drug abuse patient.[facility] Encounter Details Date Type Department Care Team (Late st Contact Info) Description 05/20/2023 Patient Msg PAS MAIN [address] [facility] [address] Provider, [facility] Financial Clearance Status Social History Tobacco Use Types Packs/Day Years [...] is lower risk 7 10/15/2022 Data from: https://www.neighborhoodatlas.medicine.[facility]/. Last address used for calculation [address] [...] on filedocumented in this encounter Care Teams Analytical Data Scientist Relationship Specialty Start Date End Date Aman Mathias MD [address] [place] [address] PCP - General Family Medicine 09/03/21 09/14/23 Buffy Chung, SENIOR SQL DATABASE DEVELOPER [address] [place] [address] PCP - General Family Medicine 09/15/23 Paula Tuttle, RN [address] [place] [address] Research Nurse Hematology/Oncology 06/05/20 [place] [address] [place] [address] Physician Hematology/Oncology 06/05/20 documented as of this encounter
--- OUTSIDE RECORDS SUMMARY | 2025-02-18 11:45 | XMS_ITS | Encounter Summary ---
Author Organization [facility] Address [facility] [place] [address] Care Team Providers Care Superintendent Measurement Name Role Phone Paula Tuttle RN Unavailable UnavailWilliam Goncalves MD, PhD Unavailable [phone] Aman Mathias MD Primary Care Provider [phone] Buffy Chugn CNP Primary Care Provider [phone] Source Comments In the event this information is protected by the Federal Confidentiality of Alcohol and Drug AbusePatient Records regulations: The Federal rules restrict any use of the information to criminally investigate or prosecute any alcohol or drug abuse patient.[facility] Encounter Details Date Type Department Care Team (Late st Contact Info) Description 05/23/2023 Patient Msg Appointment Center [address] [place] [phone] Provider, [facility] ORTHOPAEDICS CONSULT Social History Tobacco Use Types Packs/Day Years [...] is lower risk 7 10/15/2022 Data from: https://www.neighborhoodatlas.medicine.[facility]/. Last address used for calculation [address] [...] on filedocumented in this encounter Care Teams Superintendent Measurement Relationship Specialty Start Date End Date Aman Mathias MD [address] [place] [address] PCP - General Family Medicine 09/03/21 09/14/23 Buffy Chung, RAIL DIRECTOR [address] [place] [address] PCP - General Family Medicine 09/15/23 Paula Tuttle, RN [address] [place] [address] Research Nurse Hematology/Oncology 06/05/20 [place] [address] [place] [address] Physician Hematology/Oncology 06/05/20 documented as of this encounter
--- OUTSIDE RECORDS SUMMARY | 2025-02-18 11:45 | XMS_ITS | Encounter Summary ---
Author Organization [facility] Address [address] [place] [address] Care Team Providers Care Garment Alteration Examiner Name Role Phone Paula Tuttle RN Unavailable UnavailWilliam Goncalves MD, PhD Unavailable [phone] Aman Mathias MD Primary Care Provider [phone] Buffy Chung CNP Primary Care Provider [phone] Source Comments In the event this information is protected by the Federal Confidentiality of Alcohol and Drug AbusePatient Records regulations: The Federal rules restrict any use of the information to criminally investigate or prosecute any alcohol or drug abuse patient.[facility] Encounter Details Date Type Department Care Team (Late st Contact Info) Description 10/29/2022 Patient Msg [facility] [address] [place] [address] Provider, Ccf pre procedure instructions for 11/01/22 Social History Tobacco Use Types Packs/Day Years [...] risk 7 10/15/2022 Data from: https://www.neighborhoodatlas.medicine.[facility]/. Last address used for calculation [address] [...] on filedocumented in this encounter Care Teams Garment Alteration Examiner Relationship Specialty Start Date End Date Aman Mathias MD [address] [place] [address] PCP - General Family Medicine 09/03/21 09/14/23 Buffy Chung, FURS SALESPERSON [address] [place] [address] PCP - General Family Medicine 09/15/23 Paula Tuttle, RN [address] [place] [address] Research Nurse Hematology/Oncology 06/05/20 [place] [address] [place] [address] Physician Hematology/Oncology 06/05/20 documented as of this encounter
--- OUTSIDE RECORDS SUMMARY | 2025-02-18 11:45 | XMS_ITS | Encounter Summary ---
Author Organization [facility] Address [address] [place] [address] Care Team Providers Care Second Cook And Baker Name Role Phone Paula Tuttle RN Unavailable UnavailWilliam Goncalves MD, PhD Unavailable [phone] Aman Mathias MD Primary Care Provider [phone] Buffy Chung CNP Primary Care Provider [phone] Source Comments In the event this information is protected by the Federal Confidentiality of Alcohol and Drug AbusePatient Records regulations: The Federal rules restrict any use of the information to criminally investigate or prosecute any alcohol or drug abuse patient.[facility] Encounter Details Date Type Department Care Team (Late st Contact Info) Description 04/11/2023 Patient Msg Angio [address] [place] [address] Provider, Ccf Pre-Procedural Instructions Social History Tobacco Use Types Packs/Day Years [...] is lower risk 7 10/15/2022 Data from: https://www.neighborhoodatlas.medicine.[facility]/. Last address used for calculation [address] [...] on filedocumented in this encounter Care Teams Second Cook And Baker Relationship Specialty Start Date End Date Aman Mathias MD [address] [place] [address] PCP - General Family Medicine 09/03/21 09/14/23 Buffy Chung, DEPARTMENT HELPER [address] [place] [address] PCP - General Family Medicine 09/15/23 Paula Tuttle, RN [address] [place] [address] Research Nurse Hematology/Oncology 06/05/20 [place] [address] [place] [address] Physician Hematology/Oncology 06/05/20 documented as of this encounter
--- OUTSIDE RECORDS SUMMARY | 2025-02-18 11:45 | XMS_ITS | Clinical Summary ---
Author Organization [facility] Address [facility]-[id number] [address] [place] [address] Care Team Providers Care Toolmaker Grade Three Name Role Phone Buffy Chung APRN-SENIOR ELECTRICAL ENGINEER Primary Care Provider Allergies Active Allergy Reactions Criticality Noted Date Comments Morphine Nausea And Vomiting 03/11/2023 Opioids - Morphine Analogues Nausea And Vomiting 04/01/2023 Medications insulin glargine (LANTUS, BASAGLAR) 100 unit/mL (3 mL) insulin pen Inject 40 Units under the skin in the morning and 40 Units before bedtime. Active lisinopriL (PRINIVIL,ZESTRIL ) 20 mg tablet Take 1 tablet (20 mg total) by mouth in the morning. 3 Active insulin lispro (HumaLOG) 100 unit/mL insulin pen in the morning and at noon and in the evening. Take with meals. Sliding scale. 3 Active NON FORMULARY Med Name: trial chemo drug, unknown name [id number] Active pravastatin (PRAVACHOL) 80 mg tablet Take 1 tablet (80 mg total) by mouth in the morning. Active amLODIPine (NORVASC) 10 mg tablet Take 1 tablet (10 mg total) by mouth in the morning. Active pravastatin (PRAVACHOL) 40 mg tablet Take 1 tablet (40 mg total) by mouth in the morning. 3 02/19/20 25 Discontinu ed(Dose adjustment ) amLODIPine (NORVASC) 5 mg tabletIndications :Primary hypertension Take 1 tablet (5 mg total) by mouth in the morning. 90 tablet 3 3 02/19/20 25 Discontinu ed(Dose adjustment ) Active Problems Problem Noted Date Diagnosed Date Abnormal ECG 03/20/2023 Primary hypertension 03/20/2023 GENET (obstructive sleep apnea) 03/20/2023 LVH (left ventricular hypertrophy) 03/20/2023 Cardiomyopathy, hypertrophic 03/20/2023 Chronic myeloid leukemia 04/06/2012 Encounters Date Type Department Care Team Description 02/18/2025 8:00 AM EDT Office Visit [facility] [address] [place] [address] Chris Ken MD Boumegouas, Manel, MD Primary hypertension (Primary Dx); Palpitations; Cardiomyopathy, hypertrophic (CMS-HCC); LVH (left ventricular hypertrophy); GENET (obstructive sleep apnea); Atrial flutter (CMS-HCC); Tachycardia; Nonrheumatic pulmonary valve stenosis; Essential hypertension 02/18/2025 Travel 02/02/2025 Orders Only [facility] [place] [address] External, Scanning Provider Pain (Primary Dx) 12/22/2024 12:40 PM EDT Ancillary Procedure [facility] [address] [place] [address] Pain 11/22/2024 Orders Only [facility] [address] [place] [address] External, Scanning Provider from Last 3 Months Family History Medical History Relation Name Comments Colon cancer Father Diabetes Father Heart disease Father Diabetes Mother Relation Name Status Comments Father Mother Social History Tobacco Use Types Packs/Day Years [...] Orientation Straight 03/23/2023 10 :26 AM EDT Last Filed Vital Signs Vital Sign Reading Time Taken Comments Blood Pressure 140/80 02/18/2025 7:43 AM EDT Pulse 69 02/18/2025 7:43 AM EDT Temperature 36.4 C (97.6 F) 05/19/2024 8:51 AM EST Respiratory Rate 20 05/19/2024 8:51 AM EST Oxygen Saturation 100% 02/18/2025 7:43 AM EDT Inhaled Oxygen Concentration - - Weight 119.3 kg (263 lb) 02/18/2025 7:43 AM EDT Height 177.8 cm (5' 10 ) 02/18/2025 7:43 AM EDT Body Mass Index 37.74 02/18/2025 7:43 AM EDT Plan of Treatment Upcoming Encounters Date Type Department Care Team (Late st Contact Info) Description 02/25/2025 3:00 PM EDT Appointment [facility] - Cardiovascular [address] [place] [phone] Mal Coello MD [address] [place] [address] Health Maintenance Due Date Last Done Comments Depression Screening 1980 Adult BMI Follow Up Plan 1986 Zoster (Shingles) Vaccine (1 of 2) 09/26/1987 COVID-19 Vaccine (3 - Pfizer risk series) 10/17/2020 09/19/2020, 08/29/2020 DTaP,Tdap and Td Vaccines (2 - Td or Tdap) 12/16/2020 12/16/2010 Influenza Vaccine 02/07/2025 04/21/2018, , 07/19/2016, Additional history exists Adult BMI Screening 02/18/2026 02/18/2025 Tobacco Screening 02/18/2026 02/18/2025 Medical Devices Not on file Procedures Procedure Name Priority Date/Time Associated Diagnosis Comments POCT EKG Routine 02/18/2025 Primary hypertension Palpitations NON [facility] Routine 12/22/2024 12 :40 PM EDT Pain from Last 3 Months Results * POCT EKG (02/18/2025) 02/18/2025 us Mal Coello MD ECG ORDERABLES Final Result Performing Organization Address City/[facility] Co de Phone Number MANUALLY TRANSCRIBED RESULTS * Non [facility] (12/22/2024 12:40 PM EDT) us Scanning Provider External CV ECHO ORDERABLES Fi nal Result Performing Organization Address City/[facility] Co de Phone Number XCELERA from Last 3 Months Insurance [employer] Care Teams Toolmaker Grade Three Relationship Specialty Start Date End Date Buffy Chung, JEANNIE-SENIOR ELECTRICAL ENGINEER PCP - General Nurse Practitioner 05/19/24
--- OUTSIDE RECORDS SUMMARY | 2025-02-18 11:45 | XMS_ITS | Encounter Summary ---
Author Organization [facility] Address [id number] [address] [place] [address] Care Team Providers Care Tape Coater Name Role Phone DeclanrobertRadha vasqueza Abiodun DENNIS-CONVALESCENT SITTER Primary Care Provider Encounter Details Date Type Department Care Team (Late st Contact Info) Description 11/22/2024 Orders Only [facility] [address] [place] [phone] External, Scanning Provider Social History Tobacco Use Types Packs/Day Years [...] Info) Description 02/25/2025 3:00 PM EDT Appointment [facility] - Cardiovascular [address] [place] [phone] Mal Coello MD [address] [place] [address] documented as of this encounter Procedures Procedure Name Priority Date/Time Associated Diagnosis Comments UNLISTED GENETIC TEST Routine 11/05/2024 12:56 PM EDT documented in this encounter Results * Unlisted Genetic Test (11/05/2024 12:56 PM EDT) us Scanning Provider External LAB BLOOD ORDERABLES Edited Result - Final MANUALLY TRANSCRIBED RESULTS documented in this encounter Visit Diagnoses Not on filedocumented in this encounter Care Teams Tape Coater Relationship Specialty Start Date End Date Buffy Chung, VIDEO EDITING INTERN-CONVALESCENT SITTER PCP - General Nurse Practitioner 05/19/24 documented as of this encounter
--- OUTSIDE RECORDS SUMMARY | 2025-02-18 11:45 | XMS_ITS | Encounter Summary ---
Author Organization [facility] Address [address] [place] [address] Care Team Providers Care Hide And Skin Colerer Name Role Phone William Cavazos MD, PhD Unavailable [phone] Karl Gonzalez DO Primary Care Provider Israel Hanson RN Unavailable Unavailable Aman Mathias MD Primary Care Provider [phone] Paula Tuttle RN Unavailable Unavailabl e William Cavazos MD, PhD Unavailable [phone] Aman Mathias MD Primary Care Provider [phone] Buffy Chung CNP Primary Care Provider [phone] Source Comments In the event this information is protected by the Federal Confidentiality of Alcohol and Drug AbusePatient Records regulations: The Federal rules restrict any use of the information to criminally investigate or prosecute any alcohol or drug abuse patient.[facility] Encounter Details Date Type Department Care Team (Late st Contact Info) Description 03/29/2020 Get Medical Advice Hematology/Oncology [address] [place] [address] [place] [address] [place] [id number] RE: Non-Urgent Medical Question Social History Tobacco Use Types Packs/Day Years Used Date Smoking Tobacco: Never Smokeless Tobacco: Never Alcohol Use Standard Drinks/Week Comments Yes 0 (1 standard drink = 0.6 oz pur e alcohol) socially PHQ-2 Answer Date Recorded PHQ-2 score 0 03/07/2020 Sex and Gender Information Value Date Recorded Sex Assigned at Not on file Legal Sex Male 10:16 AM EST Gender Identity Not on file Sexual Orientation Not on file COVID-19 Exposure Response Date Recorded In the last month, have you been in contact with someone who was confirmed or suspected to have Coronavirus / COVID-19? No / Unsure 03/24/2020 9:25 AM EDT documented as of this encounter [...] on filedocumented in this encounter Care Teams Hide And Skin Colerer Relationship Specialty Start Date End Date Karl Gonzalez DO [address] [place] [address] PCP - General Family Medicine 03/12/16 04/30/20 Aman Mathias MD [address] [place] [address] PCP - General Family Medicine 05/01/20 09/02/21 Aman Mathias MD [address] [place] [address] PCP - General Family Medicine 09/03/21 09/14/23 Buffy Chung, LAND ACQUISITION MANAGER [address] [place] [address] PCP - General Family Medicine 09/15/23 William Cavazos MD, PhD [address] [place] [address] Physician Hematology/Oncology 11/29/14 04/30/20 Israel Hanson RN Specialty Driver Wheelchair Hematology/Oncology 03/10/20 04/30/20 Paula Tuttle, MOISÉS [address] [place] [address] Research Nurse Hematology/Oncology 06/05/20 [place] [address] [place] [address] Physician Hematology/Oncology 06/05/20 documented as of this encounter
--- OUTSIDE RECORDS SUMMARY | 2025-02-18 11:45 | XMS_ITS | Encounter Summary ---
Author Organization [facility] Address [address] [place] [address] Care Team Providers Care Office Cleaner Name Role Phone Paula Tuttle RN Unavailable UnavailWilliam Goncalves MD, PhD Unavailable [phone] Aman Mathias MD Primary Care Provider [phone] Buffy Chung CNP Primary Care Provider [phone] Source Comments In the event this information is protected by the Federal Confidentiality of Alcohol and Drug AbusePatient Records regulations: The Federal rules restrict any use of the information to criminally investigate or prosecute any alcohol or drug abuse patient.[facility] Encounter Details Date Type Department Care Team (Late st Contact Info) Description 05/13/2022 Patient Msg Angio [address] [place] [address] Provider, Ccf Pre procedure instructions Social History [...] N ot on file 11/26/2021 Data from: https://www.neighborhoodatlas.medicine.[facility]/. Last address used for calculation [address] [...] on filedocumented in this encounter Care Teams Office Cleaner Relationship Specialty Start Date End Date Aman Mathias MD [address] [place] [address] PCP - General Family Medicine 09/03/21 09/14/23 Buffy Chung, CAMP DIRECTOR [address] [place] [address] PCP - General Family Medicine 09/15/23 Paula Tuttle, RN [address] [place] [address] Research Nurse Hematology/Oncology 06/05/20 [place] [address] [place] [address] Physician Hematology/Oncology 06/05/20 documented as of this encounter
--- OUTSIDE RECORDS SUMMARY | 2025-02-18 11:45 | XMS_ITS | Encounter Summary ---
Author Organization [facility] Address [id number] [address] [place] [address] Care Team Providers Care Gizzard Peeler Name Role Phone DeclanrobertBuffy vasquez APRN-CARE WORKER Primary Care Provider Encounter Details Date Type Department Care Team (Late st Contact Info) Description 10/21/2024 Orders Only [facility] [address] [place] [phone] External, Scanning Provider Social History Tobacco Use [...] 02/25/2025 3:00 PM EDT Appointment [facility] - Cardiovascular [address] [place] [address] Mal Coello MD [address] [place] [address] documented as of this encounter Procedures Procedure Name Priority Date/Time Associated Diagnosis Comments UNLISTED GENETIC TEST Routine 10/21/2024 1:26 PM EDT documented in this encounter Results * Unlisted Genetic Test (10/21/2024 1:26 PM EDT) us Scanning Provider External LAB BLOOD ORDERABLES Final Result MANUALLY TRANSCRIBED RESULTS documented in this encounter Visit Diagnoses Not on filedocumented in this encounter Care Teams Gizzard Peeler Relationship Specialty Start Date End Date Buffy Chung, REGIONAL TRAINER-CARE WORKER PCP - General Nurse Practitioner 05/19/24 documented as of this encounter
--- OUTSIDE RECORDS SUMMARY | 2025-02-18 11:45 | XMS_ITS | Encounter Summary ---
Author Organization [facility] Address [address] [place] [address] Care Team Providers Care Operator Catalyst Concentration Name Role Phone Buffy Chung NP Unavailable [phone] Aman Mathias MD Primary Care Provider [phone] Encounter Details Date Type Department Care Team (Late st Contact Info) Description 05/27/2024 Orders Only [facility] [address] [place] [address] Unallocated, [facility] Provider, [address] [place] [address] Social History Tobacco Use Types Packs/Day Years [...] Info) Description 02/22/2025 3:00 PM EDT Treatment [facility] [address] [place] [address] Melisa Rocha PTA [address] [place], [place] [id number] 02/24/2025 3:00 PM EDT Treatment [facility] [address] [place] [phone] Melisa Rocha PTA [address] [place], [place] [id number] 07/25/2025 8:15 AM EST Office Visit [facility] [address] [place] [address] Yaniv Thompson NP [address], [place] [address] documented as of this encounter Procedures Procedure Name Priority Date/Time Associated Diagnosis Comments MR SHOULDER LEFT WO IV CONTRAST Routine 05/27/2024 1:41 PM EST documented in this encounter Results * MR shoulder left wo IV contrast (05/27/2024 1:41 PM EST) Anatomical Region Laterality Modality Upper Extremities, Shoulder Left Magn etic Resonance Noms Provider Unallocated IMG MRI PROCEDURES Final Result documented in this encounter Visit Diagnoses Not on filedocumented in this encounter Care Teams Operator Catalyst Concentration Relationship Specialty Start Date End Date Aman Mathias MD PCP - General Family Medicine 04/08/24 Buffy Chung NP Nurse Practitioner Family Medicine 08/07/23 documented as of this encounter
--- OUTSIDE RECORDS SUMMARY | 2025-02-18 11:45 | XMS_ITS | Encounter Summary ---
Author Organization [facility] Address [address] [place] [address] Care Team Providers Care Santa'S Helper Name Role Phone Aman Mathias MD Primary Care Provider [phone] Paula Tuttle RN Unavailable [facility] William Clemons MD, PhD Unavailable [phone] Aman Mathias MD Primary Care Provider [phone] Buffy Chung CNP Primary Care Provider [phone] Source Comments In the event this information is protected by the Federal Confidentiality of Alcohol and Drug AbusePatient Records regulations: The Federal rules restrict any use of the information to criminally investigate or prosecute any alcohol or drug abuse patient.[facility] Encounter Details Date Type Department Care Team (Late st Contact Info) Description 12/27/2020 Patient Msg Dermatology and Plastics [place] [address] [place] [address] Provider, Ccf Scheduled Apppointment in Dermatology Social History Tobacco Use Types Packs/Day Years [...] N ot on file 05/15/2020 Data from: https://www.neighborhoodatlas.medicine.[facility]/. Last address used for calculation Not on [...] or suspected to have Coronavirus / COVID-19? Unable to assess 12/29/2020 12:22 PM EDT documented as of this encounter Functional [...] 3:20 PM FARIHAT Bety Kumar RN documented as of this [...] on filedocumented in this encounter Care Teams Santa'S Helper Relationship Specialty Start Date End Date Aman Mathias MD [address] [place] [address] PCP - General Family Medicine 05/01/20 09/02/21 Aman Mathias MD [address] [place], [place] [address] PCP - General Family Medicine 09/03/21 09/14/23 Buffy Chung, BLOWER FEEDER DYED RAW STOCK [address] [place], [place] [phone] PCP - General Family Medicine 09/15/23 Paula Tuttle, RN [address] [place] [address] Research Nurse Hematology/Oncology 06/05/20 [place] [address] [place] [address] Physician Hematology/Oncology 06/05/20 documented as of this encounter
--- OUTSIDE RECORDS SUMMARY | 2025-02-18 11:45 | XMS_ITS | Encounter Summary ---
Author Organization [facility] [facility] Address [facility]-[id number] [address] [place] [address] Care Team Providers Care Corn Miller Name Role Phone Buffy Chung APRN-SOLOIST DANCER Primary Care Provider Encounter Details Date Type Department Care Team (Late st Contact Info) Description 08/11/2024 Telephone [facility] [address] [place] [phone] Yuliana Perez RMA Social History Tobacco Use Types Packs/Day Years [...] got money to buy more. Never True 05/19/2024 Within the past 12 months th e food we bought just didn't last and we didn't have money to get more. Never True 05/19/2024 Purpose - Life Answer Date Recorded Purpose and direction in life Unknown Sex and Gender Information Value Date Recorded Sex Assigned at Male 03/23/2023 10:26 AM EDT Legal Sex Male 11:27 AM EDT Gender Identity Male 03/23/2023 10:26 AM EDT Sexual Orientation Straight 03/23/2023 10 :26 AM EDT documented as of this encounter Miscellaneous Notes * Telephone Encounter - EVELINE Argueta - 08/11/2024 11:28 AM EST Zachary called into the office to cancel his surgery on Friday08/13/[address] Gandara for right now -he was expose to COVID. He will call back later to reschedule. I informed him that he may need an office visit 30 days prior to surgery. He said ok. documented in this encounter Plan of Treatment Upcoming Encounters Date Type Department Care Team (Late st Contact Info) Description 02/25/2025 3:00 PM EDT Appointment [facility] - Cardiovascular [address] [place] [address] Mal Coello MD [address] [place] [address] documented as of this encounter Visit Diagnoses Not on filedocumented in this encounter Care Teams Corn Miller Relationship Specialty Start Date End Date Buffy Chung, JEANNIE-SOLOIST DANCER PCP - General Nurse Practitioner 05/19/24 documented as of this encounter
--- OUTSIDE RECORDS SUMMARY | 2025-02-18 11:45 | XMS_ITS | Encounter Summary ---
Author Organization Address [facility] [place] [address] Care Team Providers Care Steel Shot Header Operator Name Role Phone Aman Mathias MD Primary Care Provider [phone] Paula Tuttle RN Unavailable [facility] William Clemons MD, PhD Unavailable [phone] Aman Mathias MD Primary Care Provider [phone] Buffy Chung CNP Primary Care Provider [phone] Source Comments In the event this information is protected by the Federal Confidentiality of Alcohol and Drug AbusePatient Records regulations: The Federal rules restrict any use of the information to criminally investigate or prosecute any alcohol or drug abuse patient. Encounter Details Date Type Department Care Team (Late st Contact Info) Description 05/02/2020 Patient Msg Angio [address] [place] [address] Provider, Ccf Pre procedure instructions 05/03 Social History Tobacco Use Types Packs/Day [...] have Coronavirus / COVID-19? No / Unsure 05/03/2020 6:44 AM EST documented as of this encounter [...] on filedocumented in this encounter Care Teams Steel Shot Header Operator Relationship Specialty Start Date End Date Aman Mathias MD [address] [place] [address] PCP - General Family Medicine 05/01/20 09/02/21 Aman Mathias MD [address] [place] [address] PCP - General Family Medicine 09/03/21 09/14/23 Buffy Chung, CONTACT ACID PLANT OPERATOR HELPER [address] [place] [address] PCP - General Family Medicine 09/15/23 Paula Tuttle, RN [address] [place] [address] Research Nurse Hematology/Oncology 06/05/20 [place] [address] [place] [address] Physician Hematology/Oncology 06/05/20 documented as of this encounter
--- OUTSIDE RECORDS SUMMARY | 2025-02-18 11:45 | XMS_ITS | Encounter Summary ---
Author Organization [facility] Address [address] [place] [address] Care Team Providers Care Python Developer Name Role Phone William Cavazos MD, PhD Unavailable [phone] Karl Gonzalez DO Primary Care Provider Paula Tuttle RN Unavailable UnavailIsrael Armstrong RN Unavailable Unavailable Aman Mathias MD Primary Care Provider [phone] Paula Tuttle RN Unavailable UnavailWilliam Goncalves MD, PhD Unavailable [phone] Aman Mathias MD Primary Care Provider [phone] Buffy Chung CNP Primary Care Provider [phone] Source Comments In the event this information is protected by the Federal Confidentiality of Alcohol and Drug AbusePatient Records regulations: The Federal rules restrict any use of the information to criminally investigate or prosecute any alcohol or drug abuse patient.[facility] Encounter Details Date Type Department Care Team (Late st Contact Info) Description 10/03/2017 Patient Msg Dermatology [address] [place] [address] Chris Wheeler [address] [place] [address] [facility] Social History Tobacco Use Types Packs/Day Years [...] on filedocumented in this encounter Care Teams Python Developer Relationship Specialty Start Date End Date Karl Gonzalez DO [address] [place] [address] PCP - General Family Medicine 03/12/16 04/30/20 Aman Mathias MD [address] [place] [address] PCP - General Family Medicine 05/01/20 09/02/21 Aman Mathias MD [address] [place] [address] PCP - General Family Medicine 09/03/21 09/14/23 Buffy Chung, [facility] [address] [place] [address] PCP - General Family Medicine 09/15/23 William Cavazos MD, PhD [address] [id number] Physician Hematology/Oncology 11/29/14 04/30/20 Paula Tuttle, RN [address] [place] [address] Research Nurse Hematology/Oncology 05/19/17 01/31/20 Israel Hanson RN Specialty Traffic Rate Clerk Hematology/Oncology 03/10/20 04/30/20 Paula Tuttle, MOISÉS [address] [place] [address] Research Nurse Hematology/Oncology 06/05/20 [place] [address] [id number] Physician Hematology/Oncology 06/05/20 documented as of this encounter
--- OUTSIDE RECORDS SUMMARY | 2025-02-18 11:45 | XMS_ITS | Encounter Summary ---
Author Organization [facility] Address [address] [place] [place] [address] Care Team Providers Care Memorial Mason Name Role Phone Buffy Chung RADIOCHEMICAL TECHNICIAN Unavailable [phone] Aman Mathias MD Primary Care Provider [phone] Reason for Visit * Reason Comments Med Change Request Encounter Details Date Type Department Care Team (Late Contact Info) Description 08/11/2024 [facility] [address] [place] [address] Buffy Chung RADIOCHEMICAL TECHNICIAN [address] [place] [address] Type 2 diabetes mellitus with hyperglycemia, with long-term current use of insulin (HCC) Social History Tobacco Use Types Packs/Day Years [...] Upcoming Encounters Date Type Department Care Team ([facility] Contact Info) Description 02/22/2025 3:00 PM EDT Treatment [facility] [address] [place] [phone] Melisa Rocha PTA [address] [place] [address] 02/24/2025 3:00 PM EDT Treatment [facility] [address] [place] [phone] Melisa Rocha PTA [address] [place] [address] 07/25/2025 8:15 AM EST Office Visit [facility] [address] [place] [phone] Yaniv Thompson, YANE [address] [place], [place] [address] documented as of this encounter Visit Diagnoses Diagnosis Type 2 diabetes mellitus with hyperglycemia, with long-term current use of insulin (HCC) documented in this encounter Care Teams Memorial Mason Relationship Specialty Start Date End Date Aman Mathias MD PCP - General Family Medicine 04/08/24 Buffy Chung NP Nurse Practitioner Family Medicine 08/07/23 documented as of this encounter
--- OUTSIDE RECORDS SUMMARY | 2025-02-18 11:45 | XMS_ITS | Encounter Summary ---
Author Organization [facility] Address [address] [place] [address] Care Team Providers Care Seo Consultant Name Role Phone William Cavazos MD, PhD Unavailable [phone] Karl Gonzalez DO Primary Care Provider Paula Tuttle RN Unavailable UnavailIsrael Armstrong RN Unavailable Unavailable Aman Mathias MD Primary Care Provider [phone] Paula Tuttle RN Unavailable UnavailWilliam Goncalves MD, PhD Unavailable [phone] Aman Mathias MD Primary Care Provider [phone] Buffy Chung CNP Primary Care Provider [phone] Source Comments In the event this information is protected by the Federal Confidentiality of Alcohol and Drug AbusePatient Records regulations: The Federal rules restrict any use of the information to criminally investigate or prosecute any alcohol or drug abuse patient.[facility] Encounter Details Date Type Department Care Team (Late st Contact Info) Description 06/18/2017 Patient Msg Hematology/Oncology [address] [place] [address] Provider, Ccf APPOINTMENT REMINDER Social History Tobacco Use Types Packs/Day Years [...] on filedocumented in this encounter Care Teams Seo Consultant Relationship Specialty Start Date End Date Karl Gonzalez DO [address] [place] [address] PCP - General Family Medicine 03/12/16 04/30/20 Aman Mathias MD [address] [place] [address] PCP - General Family Medicine 05/01/20 09/02/21 Aman Mathias MD [address] [place] [address] PCP - General Family Medicine 09/03/21 09/14/23 Buffy Chung, WALLPAPERER HELPER [address] [place] [address] PCP - General Family Medicine 09/15/23 William Cavazos MD, PhD [address] [place] [address] Physician Hematology/Oncology 11/29/14 04/30/20 Paula Tuttle, RN [address] [place] [address] Research Nurse Hematology/Oncology 05/19/17 01/31/20 Israel Hanson, RN Specialty Pharmacy Clinical Specialist Hematology/Oncology 03/10/20 04/30/20 Paula Tuttle, RN [address] [place] [address] Research Nurse Hematology/Oncology 06/05/20 [place] [address] [place] [address] Physician Hematology/Oncology 06/05/20 documented as of this encounter
--- OUTSIDE RECORDS SUMMARY | 2025-02-18 11:45 | XMS_ITS | Encounter Summary ---
Author Organization [facility] Address [address] [place] [address] Care Team Providers Care Helminthologist Name Role Phone Buffy Chung NP Unavailable [phone] Aman Mathias MD Primary Care Provider [phone] Encounter Details Date Type Department Care Team (Late st Contact Info) Description 06/21/2024 Orders Only [facility] [address] [facility] [place] [address] Dav Tobin W, OD [address], [place] [phone] Social History Tobacco Use Types Packs/Day Years [...] Description 02/22/2025 3:00 PM EDT Treatment [facility] [address] [place] [phone] Melisa Rocha PTA [address] [place] [address] 02/24/2025 3:00 PM EDT Treatment [facility] [address] [place] [address] Melisa Rocha PTA [address] [place] [address] 07/25/2025 8:15 AM EST [facility] [address] [place] [address] Yaniv Thompson NP [address] [place], [place] [id number] documented as of this encounter Procedures Procedure Name Priority Date/Time Associated Diagnosis Comments DIABETES EYE EXAM Routine 06/21/2024 2:31 PM EST DIABETIC RETINOPATHY SCREENING - OU - BOTH EYES Routine 06/21/2024 1:14 PM EST DIABETIC RETINOPATHY SCREENING - OU - BOTH EYES Routine 06/19/2024 1:15 PM EST documented in this encounter Results * Hm Diabetes Eye Exam (06/21/2024 2:31 PM EST) us Dav Satish Mahad OD HEALTH MAINTENANCE Final Resul t * Diabetic Retinopathy Screening - OU - Both Eyes (06/21/2024 1:14 PM EST) Anatomical Region Laterality Modality Head Other us Dav Tobin OD OPHTH PHOTOGRAPHY Final Result * Diabetic Retinopathy Screening - OU - Both Eyes (06/19/2024 1:15 PM EST) Anatomical Region Laterality Modality Head Other us Dav Tobin OD OPHTH PHOTOGRAPHY Final Result documented in this encounter Visit Diagnoses Not on filedocumented in this encounter Care Teams Helminthologist Relationship Specialty Start Date End Date Aman Mathias MD PCP - General Family Medicine 04/08/24 Buffy Chung NP Nurse Practitioner Family Medicine 08/07/23 documented as of this encounter
--- OUTSIDE RECORDS SUMMARY | 2025-02-18 11:45 | XMS_ITS | Encounter Summary ---
Author Organization [facility] Address [address] [place] [address] Care Team Providers Care Glass Bulb Silverer Name Role Phone William Cavazos MD, PhD Unavailable [phone] Karl Gonzalez DO Primary Care Provider Paula Tuttle RN Unavailable UnavailIsrael Armstrong RN Unavailable Unavailable Aman Mathias MD Primary Care Provider [phone] Paula Tuttle RN Unavailable UnavailWilliam Goncalves MD, PhD Unavailable [phone] Aman Mathias MD Primary Care Provider [phone] Buffy Chung CNP Primary Care Provider [phone] Source Comments In the event this information is protected by the Federal Confidentiality of Alcohol and Drug AbusePatient Records regulations: The Federal rules restrict any use of the information to criminally investigate or prosecute any alcohol or drug abuse patient.[facility] Encounter Details Date Type Department Care Team (Late st Contact Info) Description 12/18/2017 Patient Msg Neurology [address] [place] [address] [place] [address] Provider, Ccf Confirming Sleep Study Social History Tobacco Use Types Packs/Day Years [...] on filedocumented in this encounter Care Teams Glass Bulb Silverer Relationship Specialty Start Date End Date Karl Gonzalez DO [address] [place] [address] PCP - General Family Medicine 03/12/16 04/30/20 Aman Mathias MD [address] [place] [address] PCP - General Family Medicine 05/01/20 09/02/21 Aman Mathias MD [address] [place] [address] PCP - General Family Medicine 09/03/21 09/14/23 Buffy Chung, ANIMAL SCIENCE INSTRUCTOR [address] [place] [address] PCP - General Family [facility] 09/15/23 William Cavazos MD, PhD [address] [place] [address] Physician Hematology/Oncology 11/29/14 04/30/20 Paula Tuttle, RN [address] [place] [address] Research Nurse Hematology/Oncology 05/19/17 01/31/20 Israel Hanson, RN Specialty Director [facility] Hematology/Oncology 03/10/20 04/30/20 Paula Tuttle, RN [address] [place] [address] Research Nurse Hematology/Oncology 06/05/20 [place] [address] [place] [address] Physician Hematology/Oncology 06/05/20 documented as of this encounter
--- OUTSIDE RECORDS SUMMARY | 2025-02-18 11:45 | XMS_ITS | Encounter Summary ---
Author Organization [facility] tem Address [id number] [address] [place] [address] Care Team Providers Care Water Quality Manager Name Role Phone Juliet Buffy Abiodun DENNIS-NUCLEAR CRITICALITY SAFETY ENGINEER Primary Care Provider Encounter Details Date Type Department Care Team (Latest Contact Info) Description 02/18/2025 Travel Social History Tobacco Use Types Packs/Day [...] Info) Description 02/25/2025 3:00 PM EDT Appointment [facility] [address] [place] [place] [phone] Mal Coello MD [address] [place] [address] documented as of this encounter Visit Diagnoses Not on filedocumented in this encounter Care Teams Water Quality Manager Relationship Specialty Start Date End Date Buffy Chung, DISK SANDER-NUCLEAR CRITICALITY SAFETY ENGINEER PCP - General Nurse Practitioner 05/19/24 documented as of this encounter
--- OUTSIDE RECORDS SUMMARY | 2025-02-18 11:45 | XMS_ITS | Clinical Summary ---
Author Organization [facility] Address [address] [place] [id number] Care Team Providers Care Booster Assembler Name Role Phone Paula Tuttle RN Unavailable UnavailWilliam Goncalves MD, PhD Unavailable [phone] Buffy Chung CNP Primary Care Provider Allergies Active Allergy Reactions Criticality Noted Date Comments Opioids - Morphine Analogues Vomiting,GI Upset 03/11/2023 Medications * This document contains information received from the source organization and may not represent a complete record from that organization. ibuprofen (MOTRIN) 800 mg tablet 6 Active Insulin Syringe-Needle U-100 1 mL 25 x 1 syrg Use 1 syringe once daily to administer peg-interferon dose. 100 Syringe 5 0 Active fluocinonide (LIDEX) 0.05 % ointment Apply to affected areas of rash twice daily x 2 weeks, then once daily x 2 weeks. NOT for face, armpits, or groin 60 g 1 1 Active flash glucose scanning reader (FREESTYLE MIKE 2 READER) Check glucose 4 times daily 1 Each 2 Active lisinopril (ZESTRIL) 20 mg tablet Take 20 mg by mouth once daily. 3 Active insulin glargine (LANTUS SOLOSTAR U-100 INSULIN) 100 unit/mL (3 mL) Inject 35 Units subcutaneously twice daily. 75 mL 3 3 Active flash glucose sensor (FREESTYLE MIKE 2 SENSOR) kit USE DIRECTED EVERY 14 DAYS 6 Each 3 3 Active amLODIPine (NORVASC) 10 mg tablet Take 10 mg by mouth. 3 Active insulin lispro (HUMALOG KWIKPEN) 100 unit/mL Inject 15 units with breakfast and lunch and 20 units with dinner plus sliding scale (Max daily dose of 91 units daily) 90 mL 3 4 Active pravastatin (PRAVACHOL) 80 mg tablet Take 1 tablet by mouth once daily. 4 Active blood sugar diagnostic (FREESTYLE PRECISION PELON STRIPS) test strip Use with blood glucose test one time daily 100 Strip 3 4 Active empagliflozin (JARDIANCE) 25 mg tablet Take 1 tablet by mouth daily with breakfast. 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 Encounters Date Type Department Care Team Description 12/22/2024 9:00 AM EDT Nurse Visit [place]ematology[place] y [address] [place] [address] Teresa Pierce RN CML (chronic myeloid leukemia) (HCC) (Primary Dx) 12/22/2024 9:00 AM EDT Visit (SP) Office [place]ology[place] [address] [place] [address] William Howell MD, PhD 12/22/2024 Orders Only Hematology/Oncolog y [address] [place] [address] William Howell MD, PhD 12/22/2024 Orders Only Hematology/[place]olog [place] [address] [place] [address] William Howell MD, PhD CML (chronic myeloid leukemia) (HCC) (Primary Dx) 12/22/2024 Abstract Hematology/Oncolog y [address] [place] [address] Tarah Harrington, Research Coordinator Research ([id number] / [id number] / [id number]) 12/22/2024 Travel from Last 3 Months Immunizations Immunization Administration Dates Next Due COVID-19 original vaccine, a ge 12+ yr, monovalent (PFIZER-BIONTDialogic - PURPLE TOP) 09/19/2020,08/29/2020 influenza (IIV3) vaccine, tr ivalent, PF (AFLURIA, FLUARIX, FLULAVAL, FLUVIRIN, FLUZONE) 07/19/2016 influenza (IIV4) vaccine, ag e 6 mo - 64 yr, quadrivalent, PF (AFLURIA, FLUARIX, FLULAVAL, FLUZONE) 04/21/2018,05/21/2017 influenza (LAIV) vaccine, na rl, unspecified formulation 05/20/2017 novel influenza (P0T5-06) vaccine, PF 07/13/2009 pneumococcal conjugate (PCV1 3) vaccine, 13 valent (PREVNAR 13) 05/20/2017 tetanus diphtheria pertussis (Tdap) vaccine, age 7+ yr (ADACEL, BOOSTRIX) 12/16/2010 Social History Tobacco Use Types Packs/Day Years Used Date Smoking Tobacco: Never Smokeless Tobacco: Never Tobacco Cessation:Counseling Given: Not Answered Alcohol Use Standard Drinks/Week Comments Yes 0 (1 standard drink = 0.6 oz pur e alcohol) socially PHQ-2 Answer Date Recorded PHQ-2 score 2 09/08/2024 Area Deprivation Index Answer Date Juarez rded National Score (1-100), lower number is lower ri sk 92 09/09/2024 State Score (1-10), lower number is lower risk 9 09/09/2024 Data from: https://www.neighborhoodatlas.medicine.[facility].edu/. Last address used for calculation [facility] [address] 09/09/2024 Sex and Gender Information Value Date Recorded Sex Assigned at Not on file Legal Sex Male 10:16 AM EST Gender Identity Not on file Sexual Orientation Not on file Last Filed Vital Signs Vital Sign Reading Time Taken Comments Blood Pressure 141/82 12/22/2024 9:06 AM EDT Left arm sitting Pulse 63 12/22/2024 9:06 AM EDT Temperature 36.8 C (98.3 F) 12/22/2024 9:06 AM EDT Respiratory Rate 15 12/22/2024 9:06 AM EDT Oxygen Saturation 100% 12/22/2024 9:0 6 AM EDT Inhaled Oxygen Concentration - - Weight 117 kg (257 lb 15 oz) 12/22/2024 9:06 AM EDT Height 177.8 cm (5' 10 ) 09/15/2024 10: 36 AM EDT Body Mass Index 37.01 09/15/2024 10:36 AM EDT Plan of Treatment Health Maintenance Due Date Last Done Comments Diabetic Foot Exam 1978 Annual PCP Team Chronic Dise ase Visit 1986 Anxiety Screening 1986 Depression Screening 1986 Hepatitis B Vaccine (1 of 3 - 19+ 3-dose series) 09/26/1987 Shingrix Vaccine (1 of 2) 09/26/1987 CT Colonography 2013 Cologuard (FIT-DNA) 2013 Colonoscopy 2013 Sigmoidoscopy 2013 Pneumococcal Vaccine: 50+ (2 of 2 - PPSV23, PCV20, or PCV21) 07/15/2017 05/20/2017 Dilated Retinal Exam 05/05/2018 05/05/2017 DTaP,Tdap,Td Vaccine (2 - Td or Tdap) 12/16/2020 12/16/2010 Colorectal Cancer Screening 06/23/2021 Fecal Occult Blood 06/23/2021 06/23/2020, 0 06/23/2020, 05/21/2020 Urine Albumin:Creatinine Ratio 04/17/2024 04/17/2023 , 03/22/2022 LDL Cholesterol 07/09/2024 07/09/2023, 03/09, 03/22/2022, Additional history exists Influenza Vaccine (#1) 2025 8, 05/21/2017, 05/20/2017, Additional history exists HbA1C 03/24/2025 12/22/2024, 12/07, 12/07/2024, Additional history exists Prostate Cancer Screening Discussion 08/06/2027 08/06/2022, 09/05/2021 HIV Screening Completed 12/09/2023, 05/22/2020 Hepatitis C Screening Completed 12/09/2023 , 05/22/2020, 04/07/2020, Additional history exists Medical Devices Implanted Type Area Cue Worker Device Identifier Shelf Expiration Date Model / Serial / Lot Tod Tod Back Description:Lower back Screw Screw Back Procedures Procedure Name Priority Date/Time Associated Diagnosis Comments HIGH SENSITIVITY TROPONIN T Routine 12/23/2024 3:25 PM EDT CML (chronic myeloid leukemia) (HCC) LVEF TRANSTHORACIC ECHO Routine 12/22/2024 12:40 PM EDT ECHO Routine 12/22/2024 12:40 PM EDT CML (chronic myelocytic leukemia) (HCC) ECG COMPLETE 12/22/2024 9:48 AM EDT ECG COMPLETE 12/22/2024 9:48 AM EDT ECG COMPLETE 12/22/2024 9:47 AM EDT URINALYSIS, DIPSTICK ONLY Routine 12/22/2024 8:46 AM EDT CML (chronic myelocytic leukemia) (HCC) BCR/ABL1 P210 %IS PANEL Routine 12/22/2024 8:36 AM EDT CML (chronic myelocytic leukemia) (HCC) BCR/ABL1 P210 QUANTITATIVE PCR BLOOD Routine 12/22/2024 8:36 AM EDT CML (chronic myelocytic leukemia) (HCC) [facility] [place] TST 1 Routine 12/22/2024 8 :36 AM EDT CML (chronic myelocytic leukemia) (HCC) HEMOGLOBIN A1C Routine 12/22/2024 8:36 AM EDT CML (chronic myelocytic leukemia) (HCC) HIGH SENSITIVITY TROPONIN T Routine 12/22/2024 8:36 AM EDT CML (chronic myelocytic leukemia) (HCC) ACTIVATED PTT Routine 12/22/2024 8:36 AM EDT CML (chronic myelocytic leukemia) (HCC) PROTHROMBIN TIME Routine 12/22/2024 8:36 AM EDT CML (chronic myelocytic leukemia) (HCC) CHOLESTEROL BLD Routine 12/22/2024 8:36 AM EDT CML (chronic myelocytic leukemia) (HCC) TRIGLYCERIDES BLD Routine 12/22/2024 8:3 6 AM EDT CML (chronic myelocytic leukemia) (HCC) LIPASE BLD Routine 12/22/2024 8:36 AM EDT CML (chronic myelocytic leukemia) (HCC) AMYLASE BLD Routine 12/22/2024 8:36 AM EDT CML (chronic myelocytic leukemia) (HCC) PHOSPHORUS INORGANIC Routine 12/22/2024 8:36 AM EDT CML (chronic myelocytic leukemia) (HCC) MAGNESIUM BLD Routine 12/22/2024 8:36 AM EDT CML (chronic myelocytic leukemia) (HCC) URIC ACID BLOOD Routine 12/22/2024 8:36 AM EDT CML (chronic myelocytic leukemia) (HCC) CK CREATINE KINASE Routine 12/22/2024 8: 36 AM EDT CML (chronic myelocytic leukemia) (HCC) DIRECT BILIRUBIN BLOOD Routine 8:36 AM EDT CML (chronic myelocytic leukemia) ([facility]) COMPREHENSIVE METABOLIC PANEL Routine 12/22/2024 8:36 AM EDT CML (chronic myelocytic leukemia) (HCC) CBC + DIFF Routine 12/22/2024 8:36 AM EDT CML (chronic myelocytic leukemia) ([facility]) LDL CHOLESTEROL DIR Routine 07/09/2023 1 1:31 AM EST Mixed hyperlipidemia ALBUMIN/CREATININE RATIO, URINE Routine 04/17/2023 4:24 PM EST Type 2 diabetes mellitus with hyperglycemia, with long-term current use of insulin (HCC) IMMUNOCHEMICAL FECAL OCCULT BLOOD TEST Routine 06/23/2020 10:29 AM EST HIV 1/2 COMBO WITH REFLEX TO DIFFERENTIATION STAT 05/22/2020 12:29 PM EST CML (chronic myeloid leukemia) (HCC) HEPATITIS C VIRUS (HCV) RNA, QUANTITATIVE PCR, PLASMA/SERUM STAT 05/22/2020 12:29 PM EST CML (chronic myeloid leukemia) (HCC) from Last 3 Months or Most Recently Relevant to Health Maintenance Results * (ABNORMAL) HIGH SENSITIVITY TROPONIN T (12/23/2024 3:25 PM EDT) Only the most recent of2 resultswithin the time period is included. TRACY High Sensitivity 35(H) <12 ng/L 12/24/2024 6:51 AM EDT [facility] Blood BLOOD SPECIMEN / Unknown Venipuncture / Unknown 12/23/2024 3:25 PM EDT 12/23/2024 3:25 PM EDT us William Howell MD, PhD LABORATORY Final Result Performing Organization Address City/State/[facility] Co de Phone Number [facility] [address] [facility] [address] [facility] [address] [place] [id number], [place] * ECHO (12/22/2024 12:40 PM EDT) 12/22/2024 12:4 0 PM EDT [facility] - 12/22/2024 2:29 PM EDT CONCLUSIONS: - Exam indication: Baseline and serial evaluation in a patient undergoing therapy with cardiotoxic agents - The left ventricle is normal in size. There is septal concentric left ventricular hypertrophy. Left ventricular systolic function is normal. EF = 58 5% (2D biplane) Grade I left ventricular diastolic dysfunction. GLS= -12.3%. - The right ventricle is normal in size. Right ventricular systolic function is normal. - The visualized aorta is dilated with a maximal dimension of 4.1 cm. - Exam was compared with the prior CC echocardiographic exam performed on 09/15/2024.Overall, similar findings. * * * Final * * * [facility] - 12/22/2024 2:29 PM EDT Echocardiography Report: Transthoracic Echo [facility] [id number] Date of service: 12/22/2024 12:40:18 PM BRIDGE Ordering physician: WILLIAM HOWELL Exam indication: Baseline and serial evaluation in a patient undergoing therapy with cardiotoxic agents Technologist: Annabel Patel and Alanis Sarabia RDCS Fellow: Parker Larson MD Interpreting physician: Maggy Ruff MD PATIENT: Name: MR. EDRRELL MERRITT JR : 1970 Age: 54 years Gender: M Primary rhythm: sinus. Height: 177.80 cm BSA: 2.40 m Weight: 116.80 kg BMI: 36.9 kg/m Heart rate 62 bpm Blood pressure 143/78 mmHg Color Doppler was utilized to interrogate the cardiac valves assessed and spectral Doppler was utilized to determine the flow velocities and pressure gradients reported in this exam. Myocardial strain analysis was performed in this exam to aid in the assessment of cardiac function. MEASUREMENTS: Value Indexed Normal Max aortic dimension 4.1 cm Ao < 3.8 Left atrial volume 39 ml (Ross's) 17 ml/m Leo <= 34 LV ID (diastole) 4.2 cm (2D) 1.74 cm/m LV ID (systole) 2.6 cm (2D) 1.07 cm/m IVS, leaflet tips 2.0 cm (2D) Posterior wall thickness 1.2 cm (2D) Left ventricular mass 273 g (2D) 114 g/m Global peak long strain -12.3 % LV stroke volume 85 ml (2D biplane) LV end diastolic volume 146 ml (2D biplane) 60.6 ml/m 34<=EDVi<75 LV end systolic volume 61 ml (2D biplane) 25.4 ml/m Ejection Fraction 58 % (2D biplane) EF > 52 FINDINGS: LEFT VENTRICLE The left ventricle is normal in size. There is septal concentric left ventricular hypertrophy. Left ventricular systolic function is normal. Global LV myocardial strain is abnormal. Grade I left ventricular diastolic dysfunction. Mitral annular lateral E/e': 10.9. Mitral annular septal E/e': 13.9. Wall Motion: All scored segments are normal. RIGHT VENTRICLE The right ventricle is normal in size. Right ventricular systolic function is normal. RV systolic tissue Doppler velocity is 13.2 cm/s. Tricuspid annular displacement is 1.9 cm. Estimated right ventricular systolic pressure is 37 mmHg consistent with mild pulmonary hypertension. Estimated right atrial pressure is 15 mmHg based on IVC assessment. LEFT ATRIUM The left atrial cavity is normal in size. Pulmonary Veins: The pulmonary venous pattern showed blunted systolic flow. RIGHT ATRIUM The right atrial cavity is normal in size. Inferior Vena Cava: The inferior vena cava appears dilated measuring 2.3 cm. The vessel decreases less than 50 percent with inspiration. MITRAL VALVE There is trace mitral valve regurgitation. There is no thickening. The pressure half time is 69 msec. The peak mitral E/A ratio is 0.87. The average mitral E/e' ratio is 12.4. The mitral flow deceleration time is 238 msec. TRICUSPID VALVE The tricuspid valve leaflets are structurally normal. There is trace tricuspid valve regurgitation. AORTIC VALVE There is trace aortic valve regurgitation. Tricuspid aortic valve. There is mild thickening. The LVOT diameter is 2.4 cm. PULMONIC VALVE The pulmonic valve cusps are structurally normal. There is trace pulmonic valve regurgitation. AORTA The visualized aorta is dilated. Measurements - Aortic valve annulus 2.4 cm. Sinus: 4.1 cm. Mid ascending aorta 3.8 cm. PULMONARY ARTERIES The pulmonary arteries are normal. INTERATRIAL SEPTUM There is no evidence of intracardiac shunting as detected by Doppler. PERICARDIUM There is no pericardial effusion. There is an epicardial fat pad. us William Howell MD, PhD ECHO Final Result [facility] [address] [place] [address] * LVEF TRANSTHORACIC ECHO (12/22/2024 12:40 PM EDT) LV Ejection Fraction 58 % [facility] Comment: (2D biplane) EF > 52 An LV Ejection Fraction of > 50% is normal 12/22/2024 12:4 0 PM EDT us William Howell MD, PhD LVEF RESULTS Final Result Performing Organization Address City/[facility] Co de Phone Number [facility] [address] [place] [address] * ECG COMPLETE (12/22/2024 9:48 AM EDT) Ventricular Rate 67 BPM [facility] Atrial Rate 67 BPM [facility] P-R Interval 156 ms [facility] QRS Duration 96 ms [facility] QT Interval 404 ms [facility] QTC Calculation (Bazett) 426 ms [facility] Calculated P [place] 6 degrees [facility] Calculated R [place] 25 degrees [facility] Calculated T [place] 20 degrees [facility] 12/22/2024 9:48 AM EDT Impressions [facility] - 02/09/2025 1:19 PM EDT NORMAL SINUS RHYTHM NORMAL ECG Confirmed by JEREMIAS PAL MD (22) on 02/09/2025 1:11:34 PM Narrative [facility] - 02/09/2025 1:19 PM EDT NAME : DERRELL MERRITT PID : [id number] : 1970 Gender : Male Race : ORD : Procedure Date : Dec 22 2024 09:48:33 Edit Date : Feb 09 2025 13:19:44 Diagnosis: NORMAL SINUS RHYTHM NORMAL ECG Confirmed by JEREMIAS PAL MD (22) on 02/09/2025 1:11:34 PM Test Reason : Location : 117 : CA2RE Overread By : JEREMIAS PAL MD Edited By : JEREMIAS PAL MD Referred By : , Acquired by : Tarah Harrington, us Ccf Provider EKG Final Result Performing Organization Address City/[facility] Co de Phone Number [facility] [address] [place] [address] * ECG COMPLETE (12/22/2024 9:48 AM EDT) Ventricular Rate 65 BPM [facility] Atrial Rate 65 BPM [facility] P-R Interval 146 ms [facility] QRS Duration 92 ms [facility] QT Interval 400 ms [facility] QTC Calculation (Bazett) 416 ms [facility] Calculated P [place] 16 degrees [facility] Calculated R [place] 26 degrees [facility] Calculated T [place] 18 degrees [facility] 12/22/2024 9:48 AM EDT Impressions [facility] - 02/09/2025 1:19 PM EDT NORMAL SINUS RHYTHM NORMAL ECG Confirmed by JEREMIAS APL MD (22) on 02/09/2025 1:11:34 PM Narrative [facility] - 02/09/2025 1:19 PM EDT NAME : DERRELL MERRITT PID : [id number] : 1970 Gender : Male Race : ORD : Procedure Date : Dec 22 2024 09:48:04 Edit Date : Feb 09 2025 13:19:45 Diagnosis: NORMAL SINUS RHYTHM NORMAL ECG Confirmed by JEREMIAS PAL MD (22) on 02/09/2025 1:11:34 PM Test Reason : Location : 117 : CA2RE Overread By : JEREMIAS PAL MD Edited By : JEREMIAS PAL MD Referred By : , Acquired by : Tarah Harrington, us Ccf Provider EKG Final Result [facility] [address] [place] [id number] * ECG COMPLETE (12/22/2024 9:47 AM EDT) Ventricular Rate 67 BPM [facility] Atrial Rate 67 BPM [facility] P-R Interval 152 ms [facility] QRS Duration 92 ms [facility] QT Interval 396 ms [facility] QTC Calculation (Bazett) 418 ms [facility] Calculated P [place] 11 degrees [facility] Calculated R [place] 26 degrees [facility] Calculated T [place] 17 degrees [facility] 12/22/2024 9:47 AM EDT Impressions [facility] - 02/09/2025 1:19 PM EDT NORMAL SINUS RHYTHM NORMAL ECG Confirmed by JEREMIAS PAL MD (22) on 02/09/2025 1:11:34 PM Narrative [facility] - 02/09/2025 1:19 PM EDT NAME : DERRELL MERRITT PID : [id number] : 1970 Gender : Male Race : ORD : Procedure Date : Dec 22 2024 09:47:37 Edit Date : Feb 09 2025 13:19:47 Diagnosis: NORMAL SINUS RHYTHM NORMAL ECG Confirmed by JEREMIAS PAL MD (22) on 02/09/2025 1:11:34 PM Test Reason : Location : 117 : CA2RE Overread By : JEREMIAS PAL MD Edited By : JEREMIAS PAL MD Referred By : , Acquired by : Tarah Harrington, us Ccf Provider EKG Final Result [facility] [address] [place] [address] * (ABNORMAL) URINALYSIS, DIPSTICK ONLY (12/22/2024 8:46 AM EDT) Color Yellow Yellow 12/22/2024 9:24 AM EDT [facility] Clarity Clear Clear 12/22/2024 9:24 AM EDT [facility] Glucose, Urine 3+(A) Negative 12/22/2024 9:24 AM EDT [facility] Bilirubin, Urine Negative Negative 12/23/19 25 9:24 AM EDT [facility] Ketones, Urine Negative Negative 12/22/2024 9:24 AM EDT [facility] Specific [place], Ur 1.025 1.005 - 1.030 12/22/2024 9:24 AM EDT [facility] Hemoglobin/Blood ,Ur Negative Negative 12/22/2024 9:24 AM EDT [facility] pH, Urine 6.0 <8.5 12/22/2024 9:24 AM EDT [facility] Protein, Urine Negative Negative 12/22/2024 9:24 AM EDT [facility] Urobilinogen 0.2 EU/dL 0.2-1.0 EU/dL 12/22/2024 9:24 AM EDT [facility] Nitrites Negative Negative 12/22/2024 9:24 AM EDT [facility] Leuk Esterase Negative Negative 12/22/2024 9:24 AM EDT [facility] Urine URINE SPECIMEN / Unknown 12/22/2024 8:46 AM EDT 12/22/2024 8:46 AM EDT Narrative [facility] - 12/22/2024 9:24 AM EDT Please draw this lab on this exact day: 12.22.24 William Howell MD, PhD LABORATORY Final Result Performing Organization Address City/[facility]/ZIP Co de Phone Number [facility] [address] [place] [address], [place] * MAGNESIUM (12/22/2024 8:36 AM EDT) Magnesium 2.0 1.7 - 2.3 mg/dL 12/22/2024 9:28 AM EDT [facility] Blood BLOOD SPECIMEN / Unknown Venipuncture / Unknown 12/22/2024 8:36 AM EDT 12/22/2024 8:38 AM EDT William Howell MD, PhD LABORATORY Final Result [facility] [address] [place] [address], [place] * DIRECT BILIRUBIN BLOOD (12/22/2024 8:36 AM EDT) Bilirubin, Direct 0.1 <0.3 mg/dL 12/22/2024 9:28 AM EDT [facility] Blood BLOOD SPECIMEN / Unknown Venipuncture / Unknown 12/22/2024 8:36 AM EDT 12/22/2024 8:38 AM EDT William Howell MD, PhD LABORATORY Final Result Performing Organization Address City/[facility]/ZIP Co de Phone Number [facility] [address] [place] [address], * BCR/ABL1 P210 QUANTITATIVE PCR BLOOD (12/22/2024 8:36 AM EDT) [facility] BCR/ABL1 P210 INTERPRETATION BCR/ABL1 p210 Quantitative PCR Laboratory Accession Number: [id number] Result: DETECTED MR: 2.55 %IS: 0.2815 Interpretation: p210 BCR/ABL1 transcripts were detected. Quantitative results are expressed on the International Scale (IS) and a log molecular response (MR) is calculated. On this scale, a value of less than or equal to 0.1% corresponds to a major molecular response (MMR or MR3.0). Methodology: The [employer] QuantideX BCR/ABL IS assay is an FDA-cleared [...] of 0.002% IS or MR4.7. References: 1) Gonzales et al, Blood 2006;108:28-37; Cross et al, Leukemia 2015;29:999-1003 Interpretation performed by Radha Lozano, PhD, [facility] 12/24/2024 4:11 PM EDT [facility] Blood BLOOD SPECIMEN / Unknown Venipuncture / Unknown 12/22/2024 8:36 AM EDT 12/22/2024 8:38 AM EDT William Howell MD, PhD LABORATORY Final Result Performing Organization Address City/[facility]/ZIP Co de Phone Number [facility] [address] [place] [address], [place] * BCR/ABL1 P210 %IS PANEL (12/22/2024 8:36 AM EDT) [facility] BCR/ABL1 P210 %IS 0.2815 12/25/2024 12:07 PM EDT [facility] BCR/ABL1 P210 MR 2.55 12/25/2024 12:07 PM EDT [facility] Blood BLOOD SPECIMEN / Unknown Venipuncture / Unknown 12/22/2024 8:36 AM EDT 12/22/2024 8:38 AM EDT us William Howell MD, PhD LABORATORY Final Result [facility] [address] [facility] [address] [place] [id number], [place] * MISC SEND OUT TST 1 (12/22/2024 8:36 AM EDT) Test 1 12/29/2024 9:01 AM EDT [facility] Comment:Research Test Results 1 12/29/2024 9:01 AM EDT [facility] Comment:Research Referral Lab 1 12/29/2024 9:01 AM EDT [facility] Comment:Research Blood BLOOD SPECIMEN / Unknown Venipuncture / Unknown 12/22/2024 8:36 AM EDT 12/22/2024 8:38 AM EDT us William Howell MD, PhD LABORATORY Final Result Performing Organization Address City/[facility]/ZIP Co de Phone Number [facility] [address] [place] [address] * (ABNORMAL) URIC ACID (12/22/2024 8:36 AM EDT) Uric Acid 2.6(L) 4.0 - 8.1 mg/dL 12/22/2024 9:24 AM EDT [facility] Blood BLOOD SPECIMEN / Unknown Venipuncture / Unknown 12/22/2024 8:36 AM EDT 12/22/2024 8:38 AM EDT us William Howell MD, PhD LABORATORY Final Result [facility] [address] [facility] [address] [place] [phone], * (ABNORMAL) TRIGLYCERIDES (12/22/2024 8:36 AM EDT) Triglyceride 156(H) <150 mg/dL 12/22/2024 9:24 AM EDT [facility] Comment: <150 mg/dL, Normal 150-199 mg/dL, Borderline high 200-499 mg/dL, High >499 mg/dL, Very high Reference: 1. National Cholesterol Education Program ATP III Guideline At-A-Glance Quick Desk Reference: National Heart, Lung, and Blood [place]. National Institutes of Health. 2001: [facility] Publication No. 01-3305. Fasting Time 13 hrs 12/22/2024 9:24 AM EDT [facility] Blood BLOOD SPECIMEN / Unknown Venipuncture / Unknown 12/22/2024 8:36 AM EDT 12/22/2024 8:38 AM EDT William Howell MD, PhD LABORATORY Final Result [facility] [address] [facility] [place] [address], * PROTHROMBIN TIME (12/22/2024 8:36 AM EDT) PT Sec 11.0 9.7 - 13.0 sec 12/22/2024 9:31 AM EDT [facility] INR 1.0 0.9 - 1.3 12/22/2024 9:31 AM EDT [facility] Comment: Vitamin K Antagonist (VKA) Therapeutic Range: INR 2 to 3 (Target INR of 2.5) Note: For patients treated with VKA drugs, such as warfarin, the [employer] 2012 Guideline recommends [...] GH, et al. Chest 2012, 141:7S-47S Surinder MARTINEZ et al. [facility] 2017, 70: 252-289 Blood BLOOD SPECIMEN / Unknown Venipuncture / Unknown 12/22/2024 8:36 AM EDT 12/22/2024 8:38 AM EDT William Howell MD, PhD LABORATORY Final Result Performing Organization Address City/[facility]/ZIP Co de Phone Number [facility] [address] [place], [place] [address] [address], [place] * PHOSPHORUS INORGANIC (12/22/2024 8:36 AM EDT) Phosphorus 3.3 2.7 - 4.8 mg/dL 12/22/2024 9:28 AM EDT [facility] Blood BLOOD SPECIMEN / Unknown Venipuncture / Unknown 12/22/2024 8:36 AM EDT 12/22/2024 8:38 AM EDT William Howell MD, PhD LABORATORY Final Result Performing Organization Address City/[facility] Co de Phone Number [place] [address], [place] * LIPASE (12/22/2024 8:36 AM EDT) Lipase 23 16 - 61 U/L 12/22/2024 9:28 AM EDT [facility] Blood BLOOD SPECIMEN / Unknown Venipuncture / Unknown 12/22/2024 8:36 AM EDT 12/22/2024 8:38 AM EDT us William Howell MD, PhD LABORATORY Final Result [facility] [address] [place] [address], * (ABNORMAL) HEMOGLOBIN A1C (12/22/2024 8:36 AM EDT) Hemoglobin A1C 10.7(H) 4.3 - 5.6 % 12/22/2024 5:18 PM EDT [facility] Comment:[employer] Diabetes As sociation guidelines indicate that patients with HgbA1c in the range 5.7-6.4% are at increased risk for development of diabetes, and intervention by lifestyle modification may be beneficial. HgbA1c greater or equal to 6.5% is considered diagnostic of diabetes. Estimated Average Glucose 260 mg/dL 12/22/2024 5:18 PM EDT [facility] Comment:eAG: (Estimated aver age glucose) is a calculated value from HgbA1c and is traffic workforce representative of the average blood glucose level in the last 2-3 month period. Blood BLOOD SPECIMEN / Unknown Venipuncture / Unknown 12/22/2024 8:36 AM EDT 12/22/2024 8:38 AM EDT us William Howell MD, PhD LABORATORY Final Result [facility] [place] [address], * (ABNORMAL) COMPREHENSIVE METABOLIC PANEL (12/22/2024 8:36 AM EDT) Protein, Total 8.3(H) 6.3 - 8.0 g/dL 12/22/2024 9:24 AM EDT [facility] Albumin 4.0 3.9 - 4.9 g/dL 12/22/2024 9:24 AM EDT [facility] Calcium, Total 9.5 8.5 - 10.2 mg/dL 12/22/2024 9:24 AM EDT [facility] Bilirubin, Total 0.3 0.2 - 1.3 mg/dL 12/22/2024 9:24 AM EDT [facility] Alkaline Phosphatase 311(H) 38 - 113 U/L 12/22/2024 9:24 AM EDT [facility] AST 44(H) 14 - 40 U/L 12/22/2024 9:24 AM [facility] ALT 54 10 - 54 U/L 12/22/2024 9:24 AM [facility] Glucose 281(H) 74 - 99 mg/dL 12/22/2024 9:24 AM [facility] Comment: The [place] Diabetes Association (ADA) provides guidance for cutoff [...] Standards of Medical Care in Diabetes 2016, [place] [employer]. Diabetes Care. 2016.39(Suppl 1). BUN 12 9 - 24 mg/dL 12/22/2024 9:24 AM [facility] Creatinine 0.59(L) 0.73 - 1.22 mg/dL 12/22/2024 9:24 AM [facility] Sodium 134(L) 136 - 144 mmol/L 12/22/2024 9:24 AM [facility] Potassium 4.9 3.7 - 5.1 mmol/L 12/22/2024 9:24 AM [facility] Chloride 99 98 - 107 mmol/L 12/22/2024 9:24 AM [facility] CO2 25 22 - 30 mmol/L 12/22/2024 9:24 AM [facility] Anion Gap 10 8 - 15 mmol/L 12/22/2024 9:24 AM [facility] Estimated Glomerular Filtration Rate 114 >=60 mL/min/1. 73m 12/22/2024 9:24 AM [facility] Comment:Estimated Glomerular Filtration Rate (eGFR) is calculated using the 2020 CKD-EPI creatinine equation. This equation utilizes serum creatinine, sex, and age as parameters. The creatinine assay has traceable calibration to isotope dilution- mass spectrometry. Refer to KDIGO guidelines for clinical interpretation. In patients with unstable renal function, e.g. those with acute kidney injury, the eGFR may not accurately reflect actual GFR. Blood BLOOD SPECIMEN / Unknown Venipuncture / Unknown 12/22/2024 8:36 AM EDT 12/22/2024 8:38 AM EDT William Howell MD, PhD LABORATORY Final Result Performing Organization Address [facility] de Phone Number [facility] [address] [place] [address], [place] * TOTAL CHOLESTEROL (12/22/2024 8:36 AM EDT) Cholesterol, Total 185 <200 mg/dL 12/22/2024 9:20 AM EDT [facility] Comment: <200 mg/dL, Desirable 200-239 mg/dL, Borderline high >239 mg/dL, High Reference: 1. National Cholesterol Education Program ATP III Guideline At-A-Glance Quick Desk Reference: National Heart, Lung, and Blood [place]. National Institutes of Health. 2001: NIH Publication No. 01-3305. Blood BLOOD SPECIMEN / Unknown Venipuncture / Unknown 12/22/2024 8:36 AM EDT 12/22/2024 8:38 AM EDT William Howell MD, PhD LABORATORY Final Result Performing Organization Address [facility] Co de Phone Number [facility] [address] [place] [address], [place] * CREATINE KINASE/CK (12/22/2024 8:36 AM EDT) CK 55 51 - 298 U/L 12/22/2024 9:51 AM EDT [facility] Blood BLOOD SPECIMEN / Unknown Venipuncture / Unknown 12/22/2024 8:36 AM EDT 12/22/2024 8:38 AM EDT us William Howell MD, PhD LABORATORY Final Result [facility] [address] [facility] [address] [place] [address], [place] * (ABNORMAL) COMPLETE BLOOD COUNT AND DIFFERENTIAL (12/22/2024 8:36 AM EDT) WBC 10.82 3.70 - 11.00 k/uL 12/22/2024 9:01 AM EDT [facility] RBC 5.75 4.20 - 6.00 m/uL 12/22/2024 9:01 AM EDT [facility] Hemoglobin 15.7 13.0 - 17.0 g/dL 12/22/2024 9:01 AM EDT [facility] Hematocrit 44.9 39.0 - 51.0 % 12/22/2024 9:01 AM EDT [facility] MCV 78.1(L) 80.0 - 100.0 fL 12/22/2024 9:01 AM EDT [facility] MCH 27.3 26.0 - 34.0 pg 12/22/2024 9:01 AM EDT [facility] MCHC 35.0 30.5 - 36.0 g/dL 12/22/2024 9:01 AM EDT [facility] RDW-CV 13.4 11.5 - 15.0 % 12/22/2024 9:01 AM EDT [facility] Platelet Count 273 150 - 400 k/uL 12/22/2024 9:01 AM EDT [facility] MPV 10.1 9.0 - 12.7 fL 12/22/2024 9:01 AM EDT [facility] Neutrophils % 64.9 % 12/22/2024 9:01 AM EDT [facility] Abs Neut 7.02 1.45 - 7.50 k/uL 12/22/2024 9:01 AM EDT [facility] Lymphocytes % 21.0 % 12/22/2024 9:01 AM EDT [facility] Abs Lymph 2.27 1.00 - 4.00 k/uL 12/22/2024 9:01 AM EDT [facility] Monocytes % 7.5 % 12/22/2024 9:01 AM EDT [facility] Abs Jasper 0.81 <0.87 k/uL 12/22/2024 9:01 AM EDT [facility] Eosinophils % 5.0 % 12/22/2024 9:01 AM EDT [facility] Abs Eosin 0.54(H) <0.46 k/uL 12/22/2024 9:01 AM EDT [facility] Basophils % 0.8 % 12/22/2024 9:01 AM EDT [facility] Abs Baso 0.09 <0.11 k/uL 12/22/2024 9:01 AM EDT [facility] Immature Granulocytes % 0.8 % 12/22/2024 9:01 AM EDT [facility] Abs Immature Gran 0.09 <0.10 k/uL 025 9:01 AM EDT [facility] NRBC 0.0 /100 WBC 12/22/2024 9:01 AM EDT [facility] Absolute nRBC <0.01 <0.01 k/uL 12/22/2024 9:01 AM EDT [facility] Diff Type Auto 12/22/2024 9:01 AM EDT [facility] Blood BLOOD SPECIMEN / Unknown Venipuncture / Unknown 12/22/2024 8:36 AM EDT 12/22/2024 8:38 AM EDT us William Howell MD, PhD LABORATORY Final Result [facility] [address] [place] [address], [place] * AMYLASE (12/22/2024 8:36 AM EDT) Amylase 34 30 - 104 U/L 12/22/2024 9:28 AM EDT [facility] Blood BLOOD SPECIMEN / Unknown Venipuncture / Unknown 12/22/2024 8:36 AM EDT 12/22/2024 8:38 AM EDT William Howell MD, PhD LABORATORY Final Result Performing Organization Address City/[facility]/ZIP Co de Phone Number [facility] [address] [place] [address], * ACTIVATED PARTIAL THROMBOPLASTIN TIME (12/22/2024 8:36 AM EDT) APTT 25.8 23.0 - 32.4 sec 12/22/2024 9:31 AM EDT [facility] Blood BLOOD SPECIMEN / Unknown Venipuncture / Unknown 12/22/2024 8:36 AM EDT 12/22/2024 8:38 AM EDT Narrative [facility] - 12/22/2024 9:31 AM EDT Unfractionated Heparin Therapeutic Ranges: Standard Heparin Nomogram: 53 to 78 seconds (anti-Xa level of 0.3 to 0.7 U/ml) Low Dose/ACS Nomogram: 49 to 67 seconds (anti-Xa level of 0.2 to 0.5 U/ml) Stroke Treatment Nomogram: 49 to 67 seconds (anti-Xa level of 0.2 to 0.5 U/ml) Note: The APTT therapeutic range has been determined for the current lot of laboratory APTT reagent in use throughout the [facility]. William Howell MD, PhD LABORATORY Final Result Performing Organization Address City/[facility] Co de Phone Number [facility] [address] [place], [place] [id number], [place] * (ABNORMAL) LDL CHOLESTEROL DIR (07/09/2023 11:31 AM EST) LDL Cholesterol, Direct 182(H) <100 mg/dL 07/09/2023 2:33 PM EST [facility] Comment: <100 mg/dL, Optimal 100-129 mg/dL, Near optimal/above optimal 130-159 mg/dL, Borderline high 160-189 mg/dL, High >189 mg/dL, Very high Secondary prevention optimal LDL Cholesterol levels are recommended to be < 70 mg/dL Blood BLOOD SPECIMEN / Unknown Venipuncture / Unknown 07/09/2023 11:31 AM EST 07/09/2023 11:34 AM EST Kylee Ellison APRN.CNP LABORATORY Final Result Performing Organization Address City/[facility]/ZIP Co de Phone Number [facility] [address] [id number], [place] * (ABNORMAL) ALBUMIN/CREAT RATIO RND UR (04/17/2023 4:24 PM EST) Creatinine, Ur Random (UCRR) 73.8 20.0 - 300.0 mg/dL 04/18/2023 10:09 AM EST [facility] Albumin, Urine Random 32.8 mg/L 04/18/2023 10:09 AM EST [facility] Albumin/Creat Ratio 44(H) <30 mg/g 04/18/2023 10:09 AM EST [facility] Comment: Adult Male and Female Nephrotic Criteria: <30 mg/g is considered normal to mildly increased 30-300 mg/g is considered moderately increased >300 mg/g is considered severely increased KDIGO. (2013). KDIGO 2012 Clinical Practice Guideline for the Evaluation and Management of Chronic Kidney Disease. Official Journal of the International Society of Nephrology, 3(1), 1-150. Urine Random URINE SPECIMEN / Unknown Non Blood / Unknown 04/17/2023 4:24 PM EST 04/17/2023 4:24 PM EST Kylee Ellison APRN.DOMINIC LABORATORY Final Result Performing Organization Address City/[facility]/ZIP Co de Phone Number [facility] [address] [facility] [address] [address], [place] * FECAL OCCULT BLOOD TEST (06/23/2020 10:29 AM EST) Occult Blood, Stool Negative Negative 06/29/2020 10:36 AM EST [facility] Comment: This test was developed and its performance characteristics determined by [facility] ([facility]). It has not been cleared or approved by the FDA. [facility] is regulated under CLIA as qualified to perform high complexity testing. This test is used for clinical purposes. It should not be regarded as investigational or for research. STOOL SPECIMEN / Unknown 06/23/2020 10:29 AM EST 06/28/2020 10:29 AM EST William Howell MD, PhD LABORATORY Final Result [facility] [address] [place] [address] [facility] [address] [place] [address] * HIV 1 2 COMBO(AG/AB),WITH REFLEX TO DIFFERENTIATION (05/22/2020 12:29 PM EST) HIV 12 Combo (Ag/Ab) Non Reactive Non Reactive 05/23/2020 11:07 PM EST [facility] HIV 1/2 Ab Confirmatory Test Not Indicated 05/23/2020 11:07 PM EST [facility] HIV Interpretation Negative 05/23/2020 11:07 PM EST [facility] Comment: No evidence of HIV-1 or HIV-2 infection. Should recent infection be suspected, repeat testing may be considered 2-3 weeks after this draw. HIV Information: [place] Rev. Code 3701.243(E): This information has been disclosed to you from confidential records protected from disclosure by state law. You shall make no further disclosure of this information without the specific, written, and informed release of the individual to whom it pertains or as otherwise permitted by state law. A general authorization for the release of medical or other information is not sufficient for the purpose of the release of HIV test results or diagnoses. Blood BLOOD SPECIMEN / Unknown 05/22/2020 12:29 PM EST 05/22/2020 12:31 PM EST William Howell MD, PhD LABORATORY Final Result [facility] [address] [place] [address] [facility] [address] [place] [address] * HCV QUANT RNA BY PCR (05/22/2020 12:29 PM EST) HCV RNA by PCR HCV RNA not detected by PCR. IU/mL 05/23/2020 9:58 PM EST [facility] Comment: Reference Range: Negative for HCV RNA The Linear Range of this assay is 15 IU/mL to 100,000,000 IU/mL. Blood 05/22/2020 12:2 9 PM EST 05/22/2020 12:31 PM EST us William Howell MD, PhD LABORATORY Final Result [facility] [address] 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
--- OUTSIDE RECORDS SUMMARY | 2025-02-18 11:45 | XMS_ITS | Encounter Summary ---
Author Organization [facility] Address [facility] [place] [address] Care Team Providers Care Precise Winder Name Role Phone Aman Mathias MD Primary Care Provider [phone] Paula Tuttle RN Unavailable [facility] William Clemons MD, PhD Unavailable [phone] Aman Mathias MD Primary Care Provider [phone] Buffy Chung CNP Primary Care Provider [phone] Source Comments In the event this information is protected by the Federal Confidentiality of Alcohol and Drug AbusePatient Records regulations: The Federal rules restrict any use of the information to criminally investigate or prosecute any alcohol or drug abuse patient.[facility] Encounter Details Date Type Department Care Team (Late st Contact Info) Description 09/08/2020 Patient Msg [facility] [address] [place] [address] Provider, [facility] Pre procedure instructions 09/15 Social History Tobacco Use Types Packs/Day Years Used Date Smoking Tobacco: Never Smokeless Tobacco: Never Alcohol Use Standard Drinks/Week Comments Yes 0 (1 standard drink = 0.6 oz pur e alcohol) socially PHQ-2 Answer Date Recorded PHQ-2 score 0 06/19/2020 Area Deprivation Index Answer Date Juarez rded National Score (1-100), lower number is lower ri sk Not on file 05/15/2020 State Score (1-10), lower number is lower risk N ot on file 05/15/2020 Data from: https://www.neighborhoodatlas.medicine.[facility]/. Last address used for calculation Not [...] have Coronavirus / COVID-19? No / Unsure 09/01/2020 10:10 AM EDT documented as of this encounter [...] on filedocumented in this encounter Care Teams Precise Winder Relationship Specialty Start Date End Date Aman Mtahias MD [address] [place] [address] PCP - General Family Medicine 05/01/20 09/02/21 Aman Mathias MD [address] [place], [place] [id number] PCP - General Family Medicine 09/03/21 09/14/23 Buffy Chung, BRIM SETTER [address] [place], [place] [id number] PCP - General Family Medicine 09/15/23 Paula Tuttle, MOISÉS [address] [place] [address] Research Nurse Hematology/Oncology 06/05/20 [place] [address] [place] [address] Physician Hematology/Oncology 06/05/20 documented as of this encounter
--- OUTSIDE RECORDS SUMMARY | 2025-02-18 11:58 | XMS_ITS | CCD ---
Author Organization [facility] Care Team Providers Care Fish Smoker Name Role Phone Paula Tuttle RN Unavailable Unavailevelio Howell MD, PhD, Sudipto Unavailable Aman Pack Primary Care Provider [phone] AICHHOLZ, EAR NOSE THROAT PHYSICIAN ROLF Admitting Unavailable AICHHOLZ, EAR NOSE THROAT PHYSICIAN ROLF Attending Unavailable AICHHOLZ, EAR NOSE THROAT PHYSICIAN ROLF Primary Care Unavailable AICHHOLZ, EAR NOSE THROAT PHYSICIAN ROLF Admitting Unavailable AICHHOLZ, EAR NOSE THROAT PHYSICIAN ROLF Attending Unavailable AICHHOLZ, EAR NOSE THROAT PHYSICIAN ROLF Primary Care Unavailable AICHHOLZ, EAR NOSE THROAT PHYSICIAN ROLF Consulting Unavailable AICHHOLZ, EAR NOSE THROAT PHYSICIAN ROLF Admitting Unavailable AICHHOLZ, EAR NOSE THROAT PHYSICIAN ROLF Attending Unavailable AICHHOLZ, EAR NOSE THROAT PHYSICIAN ROLF Primary Care Unavailable AICHHOLZ, EAR NOSE THROAT PHYSICIAN ROLF Consulting Unavailable AICHHOLZ, EAR NOSE THROAT PHYSICIAN ROLF Primary Care Unavailable VINAYAK Henson, DR BORJA Admitting Unavailable HAY ., DR BORJA Attending Unavailable ZIEBER, DR SHANEL Villafana Consulting Unavailable GRECHNY .JENNIFER Consulting Unavailabl e AICHHOLZ, EAR NOSE THROAT PHYSICIAN ROLF Primary Care Unavailable VINAYAK .DR BORJA Admitting Unavailable HAY ., DR BORJA Attending Unavailable VINAYAK .DR BORJA Consulting Unavailable AICHHOLZ, EAR NOSE THROAT PHYSICIAN ROLF Admitting Unavailable AICHHOLZ, EAR NOSE THROAT PHYSICIAN ROLF Attending Unavailable AICHHOLZ, EAR NOSE THROAT PHYSICIAN ROLF Primary Care Unavailable Paula Tuttle RN Unavailable Unavailevelio Howell MD, PhD, Sudipto Unavailable [phone] Aman Pack Primary Care Provider ELGAFY, ANGUS Referring Unavailable ELGAFY, ANGUS Referring Unavailable ELGAFY, ANGUS Attending Unavailable Paula Tuttle RN Unavailable Unavailabl e Aichholz, Rolf J Primary Care Provider Rolf Chung Attending Provider Rolf Chung Referring Provider YAN DURHAM Attending Unavailable YAN DURHAM Referring Unavailable ROLF CHUNG Primary Care Unavailable Nigel Solorzano Attending Unavailable Nigel Solorzano Referring Unavailable ROLF CHUNG Primary Care Unavailable Aichholz EAR NOSE THROAT PHYSICIAN, Rolf Ana Maria Primary Care Provider [phone] Rolf Chung Primary Care Provider [phone] DO Kapil Kilpatrick Jr Attending Provider Aman Pack Primary Care Provider [phone] Aman Pack MD Primary Care Provider [phone] Aicpedro ATHLETIC COACH, Rolf Unavailable Unallocated , [place] Provider Primary Care Provi hal Aman Pack MD Primary Care Provider Justina Ortega Admitting Unavailable Justina Ortega Attending Unavailable Rolf Chung Primary Care Unavailable Kapil Kilpatrick Jr Admitting Unavailable Kapil Kilpatrick Jr Attending Unavailable Rolf Chung Primary Care Unavailable Aichholz SALES AGENT CASUALTY INSURANCE-EAR NOSE THROAT PHYSICIAN, Rolf Rascon Primary Care Provider Juliet SALES AGENT CASUALTY INSURANCE-EAR NOSE THROAT PHYSICIAN, Rolf Rascon Primary Care Provider AMAN PACK Primary Care Unavailable KAPIL KILPATRICK Attending Unavailable KAPIL KILPATRICK Admitting Unavailable KAPIL KILPATRICK Attending Unavailable KAPIL KILPATRICK Admitting Unavailable AMAN PACK Primary Care Unavailable Aichholz SALES AGENT CASUALTY INSURANCE-EAR NOSE THROAT PHYSICIAN, Rolf Rascon Primary Care Provider LARS BELCHER Referring Unavailable AICHHOLZ, ROLF J Primary Care Unavailable LARS BELCHER Referring Unavailable AICHHOLZ, ROLF Abiodun Primary Care Unavailable LARS BELCHER Referring Unavailable AICHHOLZ, ROLF Abiodun Primary Care Unavailable LARS BELCHER Referring Unavailable AICHHOLZ, ROLF Abiodun Primary Care Unavailable LARS BELCHER Referring Unavailable AICHHOLZ, ROLF J Primary Care Unavailable LARS BELCHER Referring Unavailable AICHHOLZ, ROLF J Primary Care Unavailable AICHHOLZ, ROLF J Primary Care Unavailable JOSE COOMBS Attending Unavailable AICHHOLZ, ROLF J Referring Unavailable AICHHOLZ, ROLF J Primary Care Unavailable YAN DURHAM Attending Unavailable AICHHOLZ, ROLF J Referring Unavailable AICHHOLZ, ROLF J Primary Care Unavailable Aichholz ATHLETIC COACH, Rolf Unavailable ERIN CHAPMAN Attending Unavailable AICHHOLZ, ROLF J Referring Unavailable AICHHOLZ, ROLF J Primary Care Unavailable AICHHOLZ, ROLF J Referring Unavailable AICHHOLZ, ROLF J Primary Care Unavailable AICHHOLZ, ROLF J Referring Unavailable AICHHOLZ, ROLF J Primary Care Unavailable JR. KILPATRICK GEORGE C Attending Unavaila YANIV Cabrera Attending Unavailable AICHROLF BROWN Attending Unavailable YANIV HERNANDEZ Attending Unavailable LUPILLO BAHENA Attending Unavailable YANIV HERNANDEZ Referring Unavailable MELISA ROCHA Attending Unavailable AVA ALDANA Attending Unavailable LUPILLO BAHENA Attending Unavailable YANIV HERNANDEZ Referring Unavailable MELISA ROCHA Attending Unavailable AVA ALDANA Attending Unavailable YANIV HERNANDEZ Referring Unavailable LUPILLO BAHENA Attending Unavailable YANIV HERNANDEZ Referring Unavailable HERNANDEZYANIV ESCALANTE T Attending Unavailable MELISA ROCHA Attending Unavailable YANIV HERNANDEZ T Referring Unavailable MELISA ROCHA Attending Unavailable YANIV HERNANDEZ T Referring Unavailable MELISA ROCHA Attending Unavailable HERNANDEZ, YANIV T Referring Unavailable MELISA ROCHA Attending Unavailable HERNANDEZYANIV ESCALANTE T Referring Unavailable LUPILLO BAHENA Attending Unavailable YANIV HERNANDEZ T Referring Unavailable MELISA ROCHA Attending Unavailable HERNANDEZ, YANIV T Referring Unavailable MELISA ROCHA Attending Unavailable DAVID, YANIV T Referring Unavailable MELISA ROCHA Attending Unavailable MELISA ROCHA Attending Unavailable LUPILLO BAHENA Attending Unavailable DAVID, YANIV T Referring Unavailable MELISA ROCHA Attending Unavailable DAVID, YANIV T Referring Unavailable MELISA ROCHA Attending Unavailable DAVID, YANIV T Referring Unavailable MELISA ROCHA Attending Unavailable DAVID, YANIV T Referring Unavailable MELISA ROCHA Attending Unavailable HERNANDEZ, YANIV T Referring Unavailable HERNANDEZ, YANIV T Attending Unavailable ROCHA, MELISA Attending Unavailable YANIV HERNANDEZ Referring Unavailable MELISA ROCHA Attending Unavailable YANIV HERNANDEZ T Referring Unavailable CLARALUPILLO DOUGHERTY Attending Unavailable DAVID, YANIV T Referring Unavailable CLARA MANTILLA Attending Unavailable LARS BELCHER Referring Unavailable STEPGUERO, , KAPIL Hsu Attending Unavaila ble BELCHERLARS Attending Unavailable AICHHOLZ, ROLF Attending Unavailable STEPANIC, JRSixto, KAPIL Hsu Attending Unavaila ble AICHHOLZ, ROLF Attending Unavailable AICHHOLZ, ROLF Attending Unavailable STEPANIC, JRSixto, KAPIL Hsu Attending Unavaila ble AICHHOLZ, ROLF Attending Unavailable YANIV HERNANDEZ Attending Unavailable LUPILLO BAHENA Attending Unavailable DAVID, YANIV T Referring Unavailable MELISA ROCHA Attending Unavailable DAVID, YANIV T Referring Unavailable TATAVA HARPER Attending Unavailable DAVID, YANIV T Referring Unavailable CLARALUPILLO DOUGHERTY Attending Unavailable DAVID, YANIV T Referring Unavailable AICHHOLLurdes, ROLF Attending Unavailable CLARALUPILLO DOUGHERTY Attending Unavailable DAVID, YANIV T Referring Unavailable HERNANDEZ, YANIV T Attending Unavailable MELISA ROCHA Attending Unavailable HERNANDEZ, YANIV T Referring Unavailable MELISA ROCHA Attending Unavailable HERNANDEZ, YANIV T Referring Unavailable TATAVA HARPER Attending Unavailable YANIV HERNANDEZ T Referring Unavailable MELISA ROCHA Attending Unavailable YANIV HERNANDEZ T Referring Unavailable AICROLF HIGGINS Primary Care Unavailable LYNDA, SUDIPTO Referring Unavailable AICROLF HIGGINS Primary Care Unavailable LYNDA, SUDIPTO Referring Unavailable AICHHOLROLF Chatman Primary Care Unavailable LYNDA, SUDIPTO Referring Unavailable AICHHOLROLF Chatman Primary Care Unavailable JAKE, ALAN Attending Unavailable JAKE, ALAN Admitting Unavailable LYNDA, SUDIPTO Referring Unavailable ROLF CHUNG Primary Care Unavailable AICHHOLZ, ROLF BERNSTEIN Primary Care Unavailable AICHHOLZROLF Primary Care Unavailable LYNDA, SUDIPTO Referring Unavailable LYNDA, SUDIPTO Attending Unavailable LYNDA, SUDIPTO Referring Unavailable AICHROLF BROWN Primary Care Unavailable AICHHOLZ, ROLF BERNSTEIN Primary Care Unavailable LYNDA, SUDIPTO Referring Unavailable AICHHOLZ, ROLF ANA MARIA Primary Care Unavailable LYNDA, SUDIPTO [facility] Primary Care Unavailable SUBHAS, RAFAEL Attending Unavailable SUBHAS, RAFAEL Admitting Unavailable LYNDA, SUDIPTO Referring [facility] Primary Care Unavailable LYNDA, SUDIPTO Referring [facility] Primary Care Unavailable LYNDA, SUDIPTO Referring Unavailable [facility], [facility] Primary Care Unavailable LYNDA, SUDIPTO Ref[facility] Primary Care Unavailable LYNDA, SUDIPTO Referring [facility] Primary Care Unavailable ALEXX DALAL Referring Unavailable ALEXX DALAL Attending [facility]available [facility] Primary Care Unavailable LYNDA, SUDIPTO Referring [facility] Primary Care Unavailable LYNDA, SUDIPTO Referring [facility] Primary Care Unavailable LYNDA, SUDIPTO Referring Unavailable LYNDA, SUDIPTO Referring Unavailable [facility], [facility] Primary Care [facility] Primary Care Unavailable LYNDA, SUDIPTO Referring Unavailable LYNDA, SUDIPTO Attending [facility] Primary Care Unavailable LYNDA, SUDIPTO Referring [facility] Primary Care Unavailable LYNDA, SUDIPTO Referring [facility] Primary Care Unavailable LYNDA, SUDIPTO Referring [facility] Primary Care Unavailable LYDNA, SUDIPTO Referring [facility] Primary Care Unavailable LYNDA, SUDIPTO Referring Unavailable LYNDA, SUDIPTO Attending Unavailable [facility] Primary Care Unavailable LYNDA, SUDIPTO Ref[facility] Primary Care Unavailable LYNDA, SUDIPTO Referring Unavailable LYNDA, SUDIPTO Attending Unavailable PATY FRIAS MD Attending Unavailable [facility] Primary Care Unavailable LYNDA, SUDIPTO Referring Unavailable ROLF CHUNG Primary Care Unavailable ROLF CHUNG Primary Care Unavailable LYNDA, SUDIPTO Attending Unavailable LYNDA, SUDIPTO Referring Unavailable LYNDA, SUDIPTO Referring Unavailable ROLF CHUNG Primary Care Unavailable AICROLF HIGGINS Primary Care Unavailable LYNDA, SUDIPTO Referring Unavailable MAGNOLIA CASTRO Attending Unavailable Aman Pack MD Primary Care Provider [phone] Allergies Allergy Classification Reported Allergen(s) Allergy Type Date of Onset Reaction(s) Facility (1 source) ALLERGIES NOT ON FILE; Translations: [ALLERGIES NOT ON FILE] Propensity to adverse reactions (disorder) [facility] Repository (20 sources) Morphinan opioid; Translations: [OPIOIDS - MORPHINE ANALOGUES] Drug Allergy 3 Vomiting, GI Upset, Nausea And Vomiting [facility] (20 sources) Morphine; Translations: [MORPHINE] Drug Allergy 3 GI intolerance, Nausea And Vomiting [facility] Repository (20 sources) Other Allergy to substance 3 GI intolerance [facility] Work Phone: Medications Current Medications Medication Drug Class(es) Dates Sig (Normalized) Sig (Original) acetaminophen 325 mg / oxyCODONE hydrochloride 5 mg oral tablet (1 source) Opioid Agonist Start: 08-16-2024 End: 08-21-2024 take 1 tablet by mouth every six hours for pain oxyCODONE-acetamin ophen (Percocet) 5-325 MG tablet Indications: Tear of left supraspinatus tendon Take 1 tablet by mouth every 6 (six) hours if needed for moderate pain for up to 5 days 20 tablet 08/16/2024 08/21/2024 Active amLODIPine 10 mg oral tablet (20 sources) Dihydropyridine Calcium Channel Christina Start: 05-22-2023 End: 03-07-2025 take 1 tablet by mouth once daily amLODIPine (Norvasc) 10 MG tablet Indications: Primary hypertension Take 1 tablet (10 mg) by mouth Daily 90 tablet 1 12/07/2024 03/07/2025 Active Start: 03-20-2023 End: 02-18-2025 take 1 tablet by mouth in the morning amLODIPine (NORVASC) 5 mg tablet Indications: Primary hypertension Take 1 tablet (5 mg total) by mouth in the morning. 90 tablet 3 03/20/2023 02/18/2025 Discontinued (Dose adjustment) Start: 05-14-2022 End: 08-12-2022 take 1 tablet by mouth once daily amLODIPine (NORVASC) 10 mg tablet Indications: CML (chronic myeloid leukemia) ([facility]) Take 1 tablet by mouth once daily. 30 tablet 2 05/14/2022 Active Comment on above: Take 1 tablet by juan th once daily. Take 10 mg by mouth. Continuous Blood Gluc [employer] Sales Representative (FreeStyle Carlitos 2 [place]) device (20 sources) Start: 03-19-2022 Continuous Blood Gluc [employer] Sales Representative (FreeStyle Carlitos 2 [place]) device USE DIRECTED TO CHECK GLUCOSE FOUR TIMES DAILY 03/19/2022 Active Continuous Glucose Sensor (FreeStyle Carlitos 3 Plus Sensor) mis (20 sources) Start: 01-08-2025 Continuous Glucose Sensor (FreeStyle Carlitos 3 Plus Sensor) [facility] 01/08/2025 Active Start: 11-10-2024 End: 12-10-2024 Continuous Glucose Sensor (F reeStyle Carlitos 3 Plus Sensor) [facility] Indications: Type 2 diabetes mellitus with hyperglycemia, with long-term current use of insulin ([facility]) 1 each Daily 2 each 11 11/10/2024 12/10/2024 Active Start: 11-10-2024 End: 12-10-2024 Continuous Glucose Sensor (F reeStyle Carlitos 3 Plus Sensor) [facility] Indications: Type 2 diabetes mellitus with hyperglycemia, with long-term current use of insulin ([facility]) 1 each Daily 2 each 11 11/10/2024 12/10/2024 Active End: 11-10-2024 Continuous Glucose Sensor (F reeStyle Carlitos 3 Plus Sensor) [facility] 1 each Daily 11/10/2024 Discontinued (Reorder) dapagliflozin 10 mg oral tablet (20 sources) Sodium-Glucose Cotransporter 2 Inhibitor Start: 04-17-2023 End: 07-22-2024 take 1 tablet by mouth in the morning dapagliflozin propanediol (FARXIGA) 10 mg tablet Take 1 tablet (10 mg total) by mouth in the morning. 04/17/2023 07/22/2024 Discontinued (Therapy completed) Comment on above: Take 1 tablet by juan th daily with breakfast. empagliflozin 25 mg oral tablet (20 sources) Sodium-Glucose Cotransporter 2 Inhibitor Start: 10-28-2023 End: 12-20-2024 take 1 tablet by mouth once daily at breakfast empagliflozin (JARDIANCE) 25 mg tablet Take 1 tablet by mouth daily with breakfast. 90 tablet 12/26/2023 Active flash glucose scanning reader (FREESTYLE CARLITOS 2 READER) (20 sources) Start: 03-19-2022 flash glucose scanning reader (FREESTYLE CARLITOS 2 READER) Check glucose 4 times daily 1 Each 03/19/2022 Active Start: 03-19-2022 flash glucose scanning reader (FREESTYLE CARLITOS 2 READER) Check glucose 4 times daily 1 Each 0 03/19/2022 Active Comment on above: Check glucose 4 time s daily flash glucose sensor (FREESTYLE CARLITOS 2 SENSOR) kit (20 sources) Start: 03-21-2023 flash glucose sensor (FREESTYLE CARLITOS 2 SENSOR) kit USE DIRECTED EVERY 14 DAYS 6 Each 3 03/21/2023 Active Start: 03-19-2022 End: 03-21-2023 flash glucose sensor (FREEST YLE CARLITOS 2 SENSOR) kit Check glucose 4 times daily 6 Each 3 03/19/2022 03/21/2023 Discontinued Start: 03-19-2022 flash glucose sensor (FREESTYLE CARLITOS 2 SENSOR) kit Check glucose 4 times [...] NOT for face, armpits, or groin FREESTYLE CARLITOS 2 SENSOR kit (10 sources) Start: 12-12-2022 End: 10-21-2024 FREESTYLE CARLITOS 2 SENSOR kit every 14 (fourteen) days. 12/12/2022 10/21/2024 Discontinued Start: 12-12-2022 FREESTYLE LIBR E 2 SENSOR kit every 14 (fourteen) days. 12/12/2022 Active Start: 12-12-2022 FREESTYLE LIBR E 2 SENSOR kit every 14 (fourteen) days. 0 12/12/2022 Active glipiZIDE er 5 mg 24 hr extended release oral tablet (20 sources) Sulfonylurea Start: 11-10-2024 End: 02-08-2025 take 1 tablet by mouth once daily glipiZIDE XL (Glucotrol XL) 5 MG 24 hr tablet Indications: Type 2 diabetes mellitus with hyperglycemia, with long-term current use of insulin ([facility]) Take 1 tablet (5 mg) by mouth Daily Do not crush, chew, or split. 90 tablet 11/10/2024 Active Start: 02-11-2024 End: 06-18-2024 take 1 tablet by mouth once daily glipiZIDE XL (Glucotrol XL) 5 MG 24 hr tablet Indications: Type 2 diabetes mellitus with hyperglycemia, with long-term current use of insulin ([facility]) Take 1 tablet (5 mg) by mouth Daily 90 tablet 02/11/2024 06/18/2024 Discontinued Start: 11-10-2023 End: 04-16-2024 take 1 tablet by mouth once daily before breakfast glipiZIDE (GLUCOTROL) 5 mg tablet Take 1 tablet (5 mg) by mouth daily before breakfast. 90 tablet 12/23/2023 04/16/2024 Discontinued ibuprofen 800 mg oral tablet (20 sources) Nonsteroidal Anti-inflammatory Drug Start: 10-24-2015 ibuprofen (MOTRIN ) 800 mg tablet 10/24/2015 Active 3 ml insulin glargine 100 unt/ml pen injector (20 sources) Insulin Analog Start: 12-07-2024 insulin glargi ne (Lantus SoloStar) 100 UNIT/ML pen Indications: Type 2 diabetes mellitus with hyperglycemia, with long-term current use of insulin ([facility]) 40 units twice a day 60 mL 2 12/07/2024 Active Start: 02-20-2024 End: 12-07-2024 insulin glargine (Lantus Bria oStar) 100 UNIT/ML pen Indications: Type 2 diabetes mellitus with hyperglycemia, with long-term current use of insulin (HCC) 35 units twice a day 60 mL 1 08/11/2024 12/07/2024 Discontinued (Reorder) Start: 11-27-2023 End: 05-19-2024 inject [...] daily. 75 mL 3 10/15/2022 Active inject 40 [IU] by florian bcutaneous injection in the morning insulin glargine (LANTUS, BASAGLAR) 100 unit/mL (3 mL) insulin pen Inject 40 Units under the skin in the morning and 40 Units before bedtime. Active inject 35 [IU] by florian bcutaneous injection in the morning insulin glargine (LANTUS, BASAGLAR) 100 unit/mL (3 mL) insulin pen Inject 35 Units under the skin in the morning and 35 Units before bedtime. 0 Active Comment on above: Inject 35 Units subc utaneously twice daily. 3 ml insulin lispro 100 unt/ml pen injector (20 sources) Insulin Analog Start: 12-04-2023 End: 12-07-2024 insulin lispro (HumaLOG) 100 UNIT/ML injection Indications: Type 2 diabetes mellitus with hyperglycemia, with long-term current use of insulin (HCC) 10 units for at breakfast and lunch, and 22 units at dinner time, plus sliding scale. Max 78 units per daily 10 each 3 12/07/2024 Active Start: 06-17-2023 insulin lispro (HUMALOG KWIKPEN) 100 [...] the evening. Take with meals. Sliding scale. 10/30/2022 Active Start: 10-30-2022 End: 04-17-2023 insulin [...] unit/mL insulin pen (1 source) Start: 10-31-19 23 insulin lispro (HumaLOG) 100 unit/mL insulin pen 3 (three) times a day with meals. Sliding scale 0 10/30/2022 Active Insulin Syringe-Needle U-100 1 mL 25 x 1 syrg (20 sources) Start: 12-14-19 20 Insulin Syringe-Needle U-100 1 mL 25 x 1 syrg Use 1 syringe once daily to administer peg-interferon dose. 100 Syringe 5 12/14/2019 Active Comment on above: Use 1 syringe once d aily to administer peg-interferon dose. 10 ml lidocaine hydrochloride 20 mg/ml injection (1 source) Antiarrhythmic, Amide Local Anesthetic Start: 10-02-19 End: 10-03-19 24 lidocaine (PF) 20 mg/mL (2 %) 100-400 mg injection (XYLOCAINE) lisinopril 20 mg oral tablet (20 sources) Angiotensin Converting Enzyme Inhibitor Start: 09-10-19 End: 03-07-20 take 1 tablet by mouth in the morning lisinopriL (PRINIVIL,ZESTRIL) 20 mg tablet Take 1 tablet (20 mg total) by mouth in the morning. 09/09/2022 Active Comment on above: Take 20 mg by mouth once daily. NON FORMULARY (12 sources) pravastatin sodium 80 mg oral tablet (20 sources) HMG-CoA Reductase Inhibitor Start: 08-29-2023 End: 03-07-2025 take 1 tablet by mouth once daily pravastatin (Pravachol) 80 MG tablet Indications: Mixed hyperlipidemia Take 1 tablet (80 mg) by mouth Daily 90 tablet 1 12/07/2024 03/07/2025 Active Start: 08-12-2022 End: 02-18-2025 take 1 tablet by mouth in the morning pravastatin (PRAVACHOL) 40 mg tablet Take 1 tablet (40 mg total) by mouth in the morning. 08/12/2022 02/18/2025 Discontinued (Dose adjustment) End: 10-15-2022 pravastatin sodium (PRAVASTA TIN ORAL) Take by mouth once daily. 0 10/15/2022 Discontinued pravastatin sodi um (PRAVASTATIN ORAL) Take by mouth once daily. 0 Active Comment on above: Take by mouth once d aily. Take 1 tablet by juan once daily. sod sulf-pot chloride-mag sulf 1.479-0.188- 0.225 gram tablet (3 sources) Start: 07-22-2024 End: 10-21-2024 sod sulf-pot chloride-mag sulf 1.479-0.188- 0.225 gram tablet Indications: Encounter for screening colonoscopy Please see instructional sheet given by physicians office. 24 tablet 07/22/2024 10/21/2024 Discontinued Start: 07-22-2024 sod sulf-pot c hloride-mag sulf 1.479-0.188- 0.225 gram tablet Indications: Encounter [...] 0 10/15/2022 Discontinued inject 50 [IU] by florian bcutaneous injection once daily insulin glargine,hum.rec.anlog (LANTUS SUBCUTANEOUS) Inject 50 Units subcutaneously once daily. 0 Active inject 30 [IU] by florian bcutaneous injection once daily insulin glargine,hum.rec.anlog (LANTUS [...] (Max daily dose of 91 units daily) INV [id number] 30 mg TABLET ([facility] ACTG 1920/20-998) (1 source) Start: 09-30-19 End: 09-30-19 take 1 tablet by mouth once 30 minutes after mealtime 30 mg, ORAL, ONCE, 1 dose, On Fri09/29/24 at 1100, Take THREE 10 mg tablets by mouth every other day, Days 1-28. Dispense 180 tablets (3 cycle supply). Take with water and within 30 min after a meal. Tablets must be swallowed whole. Do not chew or crush. Hazardous Chemotherapy Drug: Use appropriate PPE. This drug cannot be crushed, dissolved, suspended, opened, or split on the nursing unit. meloxicam 7.5 mg oral tablet (20 sources) Nonsteroidal Anti-inflammatory Drug End: 07-15-19 meloxicam (MOBIC) 7.5 mg tablet meloxicam 7.5 mg tablet 0 07/15/2022 Discontinued Comment on above: meloxicam 7.5 mg tab let omega-3 acid ethyl esters (chcf) 1000 mg oral capsule (20 sources) Start: 06-22-19 End: 10-02-19 omega-3 acid ethyl esters (LOVAZA) 1 gram capsule Indications: CML (chronic myelocytic leukemia) ([facility]) Take 2 capsules by mouth twice daily. 120 capsule 2 06/22/2020 10/02/2023 Discontinued (Discontinued by Patient) Comment on above: Take 2 capsules by m outh twice daily. perflutren lipid microspheres 1.3 mL in NaCl (PF) 0.9% 10 mL injection (DEFINITY) (20 sources) Start: 01-24-20 End: 04-16-20 perflutren lipid microspheres 1.3 mL in NaCl [...] rigidus, right foot] Onset: 10-14-2023 10-14-2023 Chronic Cardiac dysrhythmias (1 source) Atrial flutter; Translations: [Unspecified atrial flutter] 02-18-2025 Chronic Cardiac dysrhythmias (4 sources) Palpitations; Translations: [Palpitations] 06-30-2023 Episodic Diabetes mellitus with complications (20 sources) Type [...] without status migrainosus] Onset: 07-14-2023 07-14-2023 Chronic Heart valve disorders (1 source) Pulmonary stenosis, non-rheumatic; Translations: [Nonrheumatic pulmonary valve stenosis] 02-18-2025 Chronic Immunity disorders (20 sources) Secondary immune deficiency disorder; Translations: [Immunodeficiency due to conditions classified elsewhere] Onset: 04-01-2024 04-01-2024 Chronic Leukemias (20 sources) Chronic myeloid leukemia; Translations: [Chronic myeloid leukemia, BCR/ABL-positive, not having achieved remission] Onset: 04-06-2012 Chronic Osteoarthritis (20 sources) Arthritis; Translations: [Unspecified osteoarthritis, unspecified site] Onset: 08-07-2023 08-07-2023 Chronic Other and ill-defined heart disease (1 source) Cardiomegaly; Translations: [Cardiomegaly] Onset: 07-31-2023 Chronic Other and ill-defined heart disease (20 sources) Left ventricular hypertrophy; Translations: [Cardiomegaly] Onset: 03-20-2023 11-05-2023 Chronic Other connective tissue disease (20 sources) Supraspinatus tear; Translations: [Unspecified rotator cuff tear or rupture of left shoulder, not specified as traumatic] Onset: 09-09-2024 06-18-2024 Episodic Other connective tissue disease (2 sources) Biceps tendinitis; Translations: [Bicipital tendinitis, left shoulder] 06-18-2024 Episodic Other connective tissue disease (20 sources) Bicipital tenosynovitis; Translations: [Bicipital tendinitis, left shoulder] Onset: 09-09-2024 09-09-2024 Episodic Other connective tissue disease (1 source) Complete rotator cuff tear or rupture of left shoulder, not specified as traumatic; Translations: [Complete rotator cuff tear or rupture of left shoulder, not specified as traumatic] Onset: 08-15-2024 Episodic Other injuries and conditions due to [...] Translations: [Anesthesia of skin] 03-29-2024 Episodic Other nutritional; endocrine; and metabolic disorders [...] to excess calories] Onset: 03-03-2024 03-03-2024 Chronic Marycruz-; endo-; and myocarditis; cardiomyopathy (except that caused [...] malignant neoplasm of digestive organs] 07-22-2024 Episodic Spondylosis; intervertebral disc disorders; other back problems (20 sources) Spondylosis without myelopathy or radiculopathy, lumbar region; Translations: [Degeneration of lumbar intervertebral disc] Onset: 10-16-2022 Chronic Spondylosis; intervertebral disc disorders; other back problems (2 sources) Radiculopathy, lumbar region; Translations: [Radiculopathy, lumbar region] Onset: 10-15-2022 Episodic Sprains and strains (20 sources) Unspecified sprain of left shoulder joint, initial encounter; Translations: [Sprain of left shoulder] Onset: 05-19-2024 06-18-2024 Episodic Unclassified (3 sources) Patient encounter status; Translations: [Colon Cancer Screening] Onset: 07-22-2024 05-31-2024 Unclassified (1 source) EMS Onset: 05-19-2024 Unclassified (1 source) Established Patient Onset: 12-22-2024 Past or Other Problems Problem Classification Problem Date Documented Date Episodic/Chronic Abdominal pain (4 sources) Unspecified abdominal pain; Translations: [UNSPECIFIED ABDOMINAL PAIN] Onset: 11-21-2021 Episodic Deficiency and other anemia (20 sources) Anemia; Translations: [Anemia, unspecified] Onset: 07-14-2023 07-14-2023 Episodic Disorders of teeth and jaw (1 source) Jaw pain; Translations: [Pain in lower jaw] Onset: 09-08-2024 Episodic Fluid and electrolyte disorders (20 sources) Hyponatremia; Translations: [Hypo-osmolality and hyponatremia] Onset: 07-14-2023 07-14-2023 Episodic Other acquired deformities (20 sources) Spondylolisthesis; Translations: [Spondylolisthesis, site unspecified] Onset: 07-14-2023 07-14-2023 Episodic Other aftercare (1 source) 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 director 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; Translations: [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] Onset: 05-13-2022 Episodic Other aftercare (1 source) senior living (current) use of insulin; Translations: [ASSISTED CURRENT USE OF INSULIN] Onset: 05-13-2022 Episodic Other aftercare (20 sources) Long-term current use of insulin; Translations: [senior living (current) use of insulin] Onset: 08-11-2024 08-11-2024 [...] shoulder region] Onset: 12-23-2023 06-13-2023 Episodic Other non-traumatic joint disorders (1 source) Shoulder pain Onset: 05-19-2024 Episodic Other screening for suspected conditions (not [...] 12-09-2023 Episodic Residual codes; unclassified (1 source) Other specified postprocedural states; Translations: [Other specified postprocedural states] Onset: 12-23-2023 Episodic Residual codes; unclassified (1 source) Pain, unspecified; Translations: [Pain, unspecified] Onset: 08-31-2024 Episodic Residual codes; unclassified (1 source) Family history of malignant neoplasm of digestive organs; Translations: [Family history of malignant neoplasm of digestive organs] Onset: 07-22-2024 Episodic Results Test Name Value Interpretation Reference Range Facility POCT EKGon 02-18-2025 [facility] HIGH SENSITIVITY TROPONI N Ton 12-24-2024 Interpretation and review of laboratory results Abnormal [facility] TROPONIN T SERPL HS[facility] 35 ng/L [facility] Specimen Type: BLOOD SPECIMEN Ordering Facility: [facility] Address: [address] [place] [address] Original Ordering Provider: WILLIAM MURRAY [facility] CBC W AUTO DIFF BLDon Basophils/100 WBC (Bld) 0.8 % [facility] BASOPHILS # BLD AUTO 0.09 [facility] DIFFERENTIAL METHOD BLD Auto [facility] EOSINOPHIL # BLD AUTO 0.54 High [facility] LYMPHOCYTES # BLD AUTO 2.27 [facility] MONOCYTES # BLD AUTO 0.81 [facility] NEUTROPHILS # BLD AUTO 7.02 [facility] NRBC # BLD AUTO <0.01 [facility] NRBC/100 WBC BLD-RTO 0 /100 WBC [facility] PLATELET # BLD AUTO 273 [facility] PMV BLD AUTO 10.1 fL 9.0 - 12.7 fL [facility] WBC # BLD AUTO 10.82 [facility] Eosinophils/100 WBC (Bld) 5 % [facility] Erythrocyte distribution width (RBC) [Ratio] 13.4 % 11.5 - 15.0 % [facility] Hematocrit (Bld) [Volume fraction] 44.9 % 39.0 - 51.0 % [facility] Hemoglobin (Bld) [Mass/Vol] 15.7 g/dL 13.0 - 17.0 g/dL [facility] IMM GRANULOCYTES # BLD AUTO 0.09 [facility] IMM GRANULOCYTES/LEUK NFR BLD AUTO 0.8 % [facility] Interpretation and review of laboratory results Abnormal [facility] Lymphocytes/100 WBC (Bld) 21 % [facility] MCH (RBC) [Entitic mass] 27.3 pg 26.0 - 34.0 pg [facility] MCHC (RBC) [Mass/Vol] 35 g/dL 30.5 - 36.0 g/dL [facility] MCV (RBC) [Entitic vol] 78.1 fL Low 80.0 - 100.0 fL [facility] Monocytes/100 WBC (Bld) 7.5 % [facility] Neutrophils/100 WBC (Bld) 64.9 % [facility] RBC (Bld) [#/Vol] 5.75 10*6/uL 4.20 - 6.0 0 m/uL [facility] Specimen Type: BLOOD SPECIMEN Ordering Facility: [facility] Address: [address] [place] [address] Original Ordering Provider: WILLIAM MURRAY [facility] HbA1c (Bld) [Mass fraction]o n 12-07-2024 Interpretation and review of laboratory results Abnormal [facility] Laboratory - Hematology and Cell countson 12-07-2024 HbA1c (Bld) [Mass fraction] 11.4 % [facility] POCT EKGOrdered By: Rolf graham on 10-21-2024 [facility] Coding Summaryon 10-12-2024 Coding Summary HTMLBase 64 DabibxzkWIw5vIz+PGhl YWQ+BR8NLQGuJ87kuMWg uJ6tP3QFXVkBMndyOYIA XBmLVpXxvaJcYM3nlRQo ZXJu IC8+IL1uIWOsHtdulTZj i4U7mZL0I96zro4cKGai sXP5WQQzYoHbwnjsi0cu uXj1HAwlObihZwGg CNEhwR93MUT7jR14Gl41 iMOyePYnq5rmpWr1IrGy OJQfRWS6lRcrUEzel3Zv RGEsP20rhOAdq2T8 IGNvbGxhcHNlOyBlbXB0 pM8uAHozennph7omrzzj Ydj6ac69kBNwu6V6fWG0 D0NajaM1ZMSfkQQt OrdbwSNZhM7ukkppr5sx okaqTuSuCFIdBGp3NLs9 OQIinDxaVpYzCN45HNM6 MCExzxDhJ3RpAHDj iEqcAnW2f6Q9Qw6VA6XQ ZuasU4KUVEKKXInktZV+ GQ68ff87J6GsLxluYyg2 GAXmRFC5cRR5yW5v OQKnDKelb2Q2pMW8U9Hs ssXeuv3ao6fnNLHlOVdr H23iqUCnd6L6ACXhvVZ8 GZFilKdjCyYagQ04 Oyc+NHCnlSdzc2CjJdsy g5eko7cghKo2TufvXEIp zrUuqZayOQW2c8TpRz5q SWYupSS0yAO3sD2x CdZtSlL2TFwaU679IqHd uTRmLxlfF91nM3NceZH+ BCCmUfg3OKNuxAirYM7f N4WrAIZaopxdfVOw aAjvQZ3zNLVihyfiEQWo sS4yFBFiS3e9IcBvUmO3 NEyrY6ErXNAuzsheDr37 iA3qViHeFvK2DHcx V3BvfmV2JUMswLOkSYuy ARO1G01kc8X7GXThQYMq OPW3iQB0kW1bjFbveyzb bGVmdDsgdmVydGlj WOvuXLmsP342DICwrEeb PkNvZGluZyBEYXRlOiAg MDUvMDYvMjAyNTwvdGQ+ NEPjXQE6cEjyBUAb oSWeADggTn7lvWjsuCxz HZ9xFIDyakygRVZjvK5c DOOplETnwCdoKC7fTEEo kbsqz206GgXiNKB5 VNEkzIHaZ2XhjZ0wFvHa MSXlPDDeT1IfuOAxMFgk Q555NNdvJvW2RHHgveIw W5JtVDIbtMadSbH6 h4O1Cm4Za0EronyuZ9Ea iTCbGvInBrfgVUo6Q3Lp PjwvdHI+FY80TMTrUB68 QAl0NFQ2fCclKZgc OVUpI6VadY5oFeOfAULs ZGRkOyc+PHRhYmxlIHdp ZHRoPScxMDAlJyBzdHls QQ1mPy4wYJHtNFWv nPsvqEZlWwDmf6ntJBIw IQmeFP7xfUwpN3TatIN7 BOSnh9f0Sc95O12rW1Hs dXA+YSZpnKG4tAN7 zT3zSaVqMfT1IKtsV721 OzArkMBtHsgyl6ekb5gu wPj8HmH6HFAbgwRkjXrp WSK0t5NhTk33K40x IHdpZHRoPSIxNSUiIHZh bNxnfx1ufH1xVa5+PGNv eWG8sTS2kG5tQqEjTgN0 WQrpK348XnHmxPYb Elpjm0dum8xyhPw6YaZu ZKHoinEfhFvzFBR6j5De Gt05Q7WtpZtrp4NqErr8 et73dAYam8I9jUK0 Q7EmPFOhgjgonTTreJfw UV4vYHAlytmqEHQtlU4e BLWzY4r8WmDvRgX4UEaj O6XmnkL8SSHpfOWk ETCgkUZNhV0culesf7oa zruhXrZiUQTmBWt2FOa5 MQVblFifWxJsDHD8PoW2 QCA5aIXwzC5hzHcx qzttwA5hAwa+JGO9mHQb vJMFRY4tIogtzFZ+PHRk WDB0gNujSCsdGYEerU1p XPJzZ6k5OfEqOmT5 SKarH6TuchI4HASwbFVn USYynCXKdW0zgidxw5ur jbxrHvAqOIQuXZj5LCh0 LWFsaWduOiBsZWZ0 CoF3EPM8lBAqgF3vlPdt phabfD9lMxz+QmlydGgg HIE1JFp1R8JjRya6NZGk dQzdIZ4axBSmZNgr Vy7zdMlqnEmwHH7mIQFm ianof237UiBhs0hvXDUc eSDmVJntJTN8H77ey9K9 QPHcZFIuAUR5zAD6 vI3xhPedjabtlTKkxHoc cwPetJgaTDpeFBgxL674 SXAjbDshJpFpCOs9V4Qi Dru2TFEipDfgEE9a qVVdNCefJs2qzAehiHkn QC0zVKAegevaa714BzEi o2taWPMllNVmQKggPUY8 R24lk8Z7NXSdJMZa PUH3xLV6aN5clQtnlrae bGVmdDsgdmVydGljYWwt SHzqF169RTXraYmcRoXj yIv0F7PfYkp9IKAk xReuMN0toDHuXVmvDd1s zRzdlXmyDM0pSDPuvetn m463OnAbj2yjAMPayUId TIyzDGH4D67fr8E4 VCRxUXBpRYK2vWX8jD2c bGlnbjogbGVmdDsgdmVy tFmgEHdqSEfnB811RPNn cDsnPlBhdGllbnQg SNkvZBf7N3BoZvwdfLM+ HY16DBMoSU72zHKqyYZj z6relYv2UnIpXFHdOLS0 vWeoPYubc5LmXZKu Y08ueTWex7Q3LDKdbQyo wMBdJzEvmPQ5gL2oEUfi bvybw8drtlmpKbdgt9dy wf64zG32Y38uJMhr ZHRoPSIzMCUiIHZhbGln ij0gqN6iNn7+PGNvbCB3 qJU3bU5pOPMsVqU0PBix P330WtXxgPAxZttv n7oyk9jsbMa3AvN6EKBg xdErvIziAAH7a4AyBp90 F37aYSkyMXRvIZFdCOIy CDHzkCjafd2fvM5n Ii8+ZBNzhIZ9zUI9sZ9u FjCxGaR1PGtqX550XrIx iKSeOyrfC76lG8PzdEE+ WICcLze8INPodMav QP8czHBvUZfxHg2lLJV0 NkAcZvFbNYqjG6FjDUJi zwxrsivmfYO1BNTzMUEc aK11Ld8dtWhfUSTs eUQWaM2fjwrji2qghkqd EnCgHGImWOt8OZi9DMTp vCvfJvQkUQX2JvR9HBT2 dCWgtM4inSrdrqgh kA2wU1ZfFMRzoqmwLb53 rF5cMgUkUpI6PLviFri+ Q3AVSRNKiqspNDwANLXZ VSLQZY73LL70uWWn g7B0iII6P5VsYJNjnetc gfqyxTW8YZRaQNOovV56 sAKtCBpjJx4vm8C2z013 XFYoOPIsiI03Bz3h tOjiSRFkaMPVhT9dddoc d4qnyljgQsDrQIDbJAd3 HHk2XTFrtRbrOnNpOMZ9 QyS9BBH5nNZixC1y bNccelcwrN9eLie+MDQv XZazPTr5HVnkdZU+PHRk BAJ6zIxbPMjwXXEkvY7i TKSgY7j3QoEkIjR1 WQgdH7DcIJHigmvoUc61 lQ9uZeZeFrY4SEgdT9Qq vrX1IFCkeVJzKUkiORV0 A43au3E5ANVcFADk HYK4yFQ0vF4xaTutgecc bGVmdDsgdmVydGljYWwt CDisX545WLCavPjvSqM3 HHbdLGKbJR84FR18 iMXal7L8vUR5E1CoGPRu qlepdqcimLK8YFXsXOVh tK46cWSbADsyBc0ay4R2 m682YNLkFEFhaB56 Ry5hcNigCRIjlRYWnG0t kyupr5lscshtEgUwLNVw AGo7JDt1JMWpfIbaJwQy YQP5BcK7MIX6xKXf uV0fjKzqkqwhdK7zGvg+ TUFMRTwvdGQ+PHRkIHN0 jQasCPtaSCHauR1xGDUn F7u3VtIbPfF0ILsg Y8NuEJOolgbmLz93gV3x NnVnJqI7URniQ8FupaL4 MZMvcHAcKYagJVX4F79t q3D9GQRbGPThFOF6 bYI5zK3bjPtdsbzllGLp dDsgdmVydGljYWwtYWxp Y178ULKqzAsnLqYuiKQA dYChRLX2FC43LP19 J6MxNmtauQUttLR+PHRh YmxlIHdpZHRoPScxMDAl AiHudPtfIS6bJr6rBTDr LWNvbGxhcHNlOiBj n6qyGHUwFKthFD7qsIna S9UlvLK7LYWso1o5Bo28 D11uV4RgrBY+PGNvbCB3 kEW2jI2rWoRpAuD7 CKluH249OyLbdTTzCghz v2hqr0pqdTo2XbWlNFZr ftZegQtiRTZ9k4AtGw76 U92wWQrlQNLbUIHi SATdEQDctCrejp1dlX6f Ii8+VSQgaTE1tPC7lP4v XzNmLiS0DJxjU593HkEp bWThVnjzR89hY6Ga dXA+OPXrWmg5JJNzwMrw RZ2lsPRmFMlqSv6aNEO1 UiYqUxXnQIhaV1WrRFNq mwrptcuczCQ9DSLu HGXrqF83Ck1ukXtwIp1m ZZNdPXQ8RTRxjGXgI6Vn iK6xAdAvUZMpJOObO9Va bMSxSWkrD026YSkc IiB8NNEtfhVxC8UmYROj sPwcQkL3v9O0Bj0JwFnb hLWzEV4kXnKnSKy7O6Jj Wzo0ADAviYkaKH0s gXIhOVzmVk5mgDvhsCuq PZ5zHKWyjwhnl070JrAs x7duNKXpsUKgASnwOOC1 H53sw2T6PCPuUZSx DBN4aXR2mV1scWxhpykh bGVmdDsgdmVydGljYWwt YHyvX988MSUlbJarZzGI Fht6Z8VdByz8JRUk bXkiTD4jtSFqPPbbTe3t cPqhjNjdOU7ySVZjapes w795MnNwn9zcBQDneELs RGgdPZX7B82qn5D9 JIEmJCRrSVH6eEN9yH7k bGlnbjogbGVmdDsgdmVy oPqfTIlwUNgmE201VIIz aVtvSm8AKio1F5Eg Xnm8OMJerSubHY0vyIUa ROixOx0hyZosmLwiRG0k FMJadxbsn440LoGjr9sa IDEwcHQgVGltZXM7 Y03yp6C0DZVuYLWgUXR5 zUM4uV3daAjyzllosGCr dDsgdmVydGljYWwtYWxp A435YTUdzZqmTmZx eWVyOjwvdGQ+WJ42sc08 B6BjKjptAoh2XSNqYHG6 fGL8aZ5lRPAmBSxdy1Z1 zSM7N5UuynYafd4l b2x (more content not included)... [facility] Coding Queryon 10-11-[address] Kilpatrick, The indication for surgery and the body of the note suggest the surgery was performed on the left side; however, the pre and post op diagnoses and the operation description all state the right. Can you please addend the operative report to state which is correct? Thank you, Abbie Day HIM Coding [Electronically Signed on: 10/11/2024 14:53 EDT] KAPIL KILPATRICK DO [Verified on: 10/11/2024 14:53 EDT] KAPIL KILPATRICK DO [Transcribed on: 10/11/2024 11:00 EDT] [facility] ACTIVATED PARTIAL THROMBOPLA STIN TIMEon 09-29-2024 aPTT Coag (PPP) [Time] 26 s [facility] AMYLASEon 09-29-2024 Amylase [Catalytic activity/Vol] 48 U/L 30 - 104 U/L [facility] Amylase [Catalytic activity/ Vol]on 09-29-2024 Interpretation and review of laboratory results Normal [facility] CBC W Auto Differential pane l (Bld)on 09-29-2024 Basophils (Bld) [#/Vol] 0.09 10*3/uL NINF [facility] Differential cell count method Nom (Bld) Auto [facility] Eosinophils (Bld) [#/Vol] 0.56 10*3/uL High [facility] Immature granulocytes (Bld) [#/Vol] 0.04 10*3/uL [facility] Immature granulocytes/100 WBC (Bld) 0.6 % [facility] Lymphocytes (Bld) [#/Vol] 1.39 10*3/uL [facility] Monocytes (Bld) [#/Vol] 0.6 10*3/uL [facility] Neutrophils (Bld) [#/Vol] 4.11 10*3/uL [facility] Nucleated RBC (Bld) [#/Vol] [facility] Nucleated RBC/100 WBC (Bld) [Ratio] 0 % /100 WBC [facility] Platelet mean volume (Bld) [Entitic vol] 9.7 fL 9.0 - 12.7 fL [facility] Platelets (Bld) [#/Vol] 277 10*3/uL [facility] WBC (Bld) [#/Vol] 6.79 10*3/uL [facility] CBC W AUTO DIFF BLDon [facility] BASOPHILS # BLD AUTO 0.09 [facility] DIFFERENTIAL METHOD BLD Auto [facility] EOSINOPHIL # BLD AUTO 0.56 High [facility] LYMPHOCYTES # BLD AUTO 1.39 [facility] MONOCYTES # BLD AUTO 0.6 [facility] NEUTROPHILS # BLD AUTO 4.11 [facility] NRBC # BLD AUTO <0.01 [facility] NRBC/100 WBC BLD-RTO 0 /100 WBC [facility] PLATELET # BLD AUTO 277 [facility] PMV BLD AUTO 9.7 fL 9.0 - 12.7 fL [facility] WBC # BLD AUTO 6.79 [facility] IMM GRANULOCYTES # BLD AUTO 0.04 [facility] IMM GRANULOCYTES/LEUK NFR BLD AUTO 0.6 % [facility] Specimen Type: BLOOD SPECIMEN Ordering Facility: [facility] Address: [address] [place] [address] Original Ordering Provider: WILLIAM BAJWA [Catalytic activity/Vol]o n 09-29-2024 Interpretation and review of laboratory results Abnormal [facility] CREATINE KINASE/CKon 025 CK [Catalytic activity/Vol] 39 U/L Low 51 - 298 U/L [facility] Cholesterol [Mass/Vol]on Interpretation and review of laboratory results Abnormal [facility] Comprehensive metabolic 2000 panelon 09-29-2024 Albumin [Mass/Vol] 4.2 g/dL 3.9 - 4.9 g/dL [facility] ALP [Catalytic activity/Vol] 224 U/L High 38 - 113 U/L [facility] ALT [Catalytic activity/Vol] 76 U/L High 10 - 54 U/L [facility] Anion gap [Moles/Vol] 12 mmol/L 8 - 15 mmol/L [facility] AST [Catalytic activity/Vol] 68 U/L High 14 - 40 U/L [facility] Bilirubin [Mass/Vol] 0.3 mg/dL 0.2 - 1 .3 mg/dL [facility] Calcium [Mass/Vol] 9.4 mg/dL 8.5 - 10. 2 mg/dL [facility] Chloride [Moles/Vol] 98 mmol/L 98 - 10 7 mmol/L [facility] CO2 [Moles/Vol] 24 mmol/L 22 - 30 mmol/L [facility] Creatinine [Mass/Vol] 0.46 mg/dL Low 0.73 - 1.22 mg/dL [facility] GFR/1.73 sq M.predicted among non-blacks MDRD (S/P/Bld) [Vol rate/Area] 123 mL/min/{1.73_m2} - PINF [facility] Comment on above: Estimated Glomerular Filtration Rate [...] not accurately reflect actual GFR. Glucose [Mass/Vol] 277 mg/dL High 74 - 99 mg/dL [facility] Comment on above: The [place] Diab[employer] s Association (ADA) provides guidance for [...] Standards of Medical Care in Diabetes 2016, [place] Diabetes Association. Diabetes Care. 2016.39(Suppl 1). Potassium [Moles/Vol] 4.4 mmol/L 3.7 - 5.1 mmol/L [facility] Protein [Mass/Vol] 8 g/dL 6.3 - 8.0 g/dL [facility] Sodium [Moles/Vol] 134 mmol/L Low 136 - 144 mmol/L [facility] Urea nitrogen [Mass/Vol] 10 mg/dL 9 - 24 mg/dL [facility] DIRECT BILIRUBIN BLOODon Bilirubin.conjugated [Mass/Vol] 0.1 mg/dL NINF - 0.3 mg/dL [facility] HIGH SENSITIVITY TROPONIN To n 09-29-2024 Interpretation and review of laboratory results Abnormal [facility] Troponin T.cardiac High sensitivity method [Mass/Vol] 34 ng/L High NINF - 12 ng/L [facility] LIPASEon 09-29-2024 Lipase [Catalytic activity/Vol] 30 U/L 16 - 61 U/L [facility] Laboratory - Hematology and Cell countson 09-29-2024 Basophils/100 WBC (Bld) 1.3 % [facility] Eosinophils/100 WBC (Bld) 8.2 % [facility] Erythrocyte distribution width (RBC) [Ratio] 15.1 % High 11.5 - 15.0 % [facility] Hematocrit (Bld) [Volume fraction] 45.6 % 39.0 - 51.0 % [facility] Hemoglobin (Bld) [Mass/Vol] 14.9 g/dL 13.0 - 17.0 g/dL [facility] Lymphocytes/100 WBC (Bld) 20.5 % [facility] MCH (RBC) [Entitic mass] 26.4 pg 26.0 - 34.0 pg [facility] MCHC (RBC) [Mass/Vol] 32.7 g/dL 30.5 - 36.0 g/dL [facility] MCV (RBC) [Entitic vol] 80.7 fL 80.0 - 100.0 fL [facility] Monocytes/100 WBC (Bld) 8.8 % [facility] Neutrophils/100 WBC (Bld) 60.6 % [facility] RBC (Bld) [#/Vol] 5.65 10*6/uL 4.20 - 6.0 0 m/uL [facility] MAGNESIUMon 09-29-2024 Magnesium [Mass/Vol] 1.9 mg/dL 1.7 - 2 .3 mg/dL [facility] No Panel Informationon 09-29 Interpretation and review of laboratory results Abnormal [facility] Interpretation and review of laboratory results Normal [facility] Interpretation and review of laboratory results Abnormal [facility] PHOSPHORUS INORGANICon 09-29 Phosphate [Mass/Vol] 3.3 mg/dL 2.7 - 4 .8 mg/dL [facility] PT panel Coag (PPP)on 2024 INR Coag (PPP) [Relative time] 1 {INR} 0.9 - 1.3 [facility] Comment on above: Vitamin K Antagonist (VKA) Therapeutic Range: INR 2 to 3 (Target INR of 2.5) Note: For patients treated with VKA drugs, such as warfarin, the [place] [employer] 2012 Guideline recommends [...] Chest 2012, 141:7S-47S Surinder MARTINEZ et al. [facility] 2017, 70: 252-289 Interpretation and review of laboratory results Normal [facility] PT Coag (PPP) [Time] 10.7 s [facility] TOTAL CHOLESTEROLon 04-23-20 25 Cholesterol [Mass/Vol] 218 mg/dL High NINF - 200 mg/dL [facility] Comment on above: <200 mg/dL, Desirabl e 200-239 mg/dL, Borderline high >239 mg/dL, High Reference: 1. National Cholesterol Education Program ATP III Guideline At-A-Glance Quick Desk Reference: National Heart, Lung, and Blood [place]. National Institutes of Health. 2001: [facility] Publication No. -3305. TRIGLYCERIDESon 09-29-2024 Triglyceride [Mass/Vol] 286 mg/dL High NINF - 150 mg/dL [facility] Comment on above: <150 mg/dL, Normal 150-199 mg/dL, Borderline high 200-499 mg/dL, High >499 mg/dL, Very high Reference: 1. National Cholesterol Education Program ATP III Guideline At-A-Glance Quick Desk Reference: National Heart, Lung, and Blood [place]. National Institutes of Health. 2001: [facility] Publication No. -3305. Triglyceride [Mass/Vol]on Fasting Time 12 hrs [facility] URIC ACIDon 09-29-2024 Urate [Mass/Vol] 3.5 mg/dL Low 4.0 - 8.1 mg/dL [facility] URINALYSIS, DIPSTICK ONLYon 09-29-2024 Bilirubin Ql (U) Negative Negative [facility] Clarity (Unsp spec) Clear Clear [facility] Color (U) Yellow Yellow [facility] Glucose Test strip (U) [Mass/Vol] 3+ Abnormal Negative [facility] Hemoglobin Ql (U) Negative Negative [facility] Interpretation and review of laboratory results Abnormal [facility] Ketones Ql (U) Negative Negative [facility] Leukocyte esterase Test strip Ql (U) Negative Negative [facility] Nitrite Ql (U) Negative Negative [facility] pH (U) 5.5 [pH] NINF - 8.5 [facility] Protein (U) [Mass/Vol] Negative Negative [facility] Specific gravity (U) [Rel density] 1.038 High 1.005 - 1.030 [facility] Urobilinogen Ql (U) 0.2 EU/dL 0.2-1.0 EU/dL [facility] Please draw this lab on this exact day: 09.29.24 [facility] aPTT Coag (PPP) [Time]on Interpretation and review of laboratory results Normal [facility] Unfractionated Heparin Therapeutic Ranges: Standard Heparin Nomogram: [...] laboratory APTT reagent in use throughout the [facility]. [facility] HIGH SENSITIVITY TROPONI N Ton 09-23-2024 Interpretation and review of laboratory results Abnormal [facility] TROPONIN T SERPL HS-[facility] 37 ng/L High [facility]L [facility] Specimen Type: BLOOD SPECIMEN Ordering Facility: [facility] Address: [address] [place] [address] Original Ordering Provider: WILLIAM MURRAY [facility] ACTIVATED PARTIAL THROMBOPLA STIN TIMEon 09-15-2024 aPTT Coag (PPP) [Time] 26.3 s [facility] AMYLASEon 09-15-2024 Amylase [Catalytic activity/Vol] 35 U/L 30 - 104 U/L [facility] CBC W Auto Differential pane l (Bld)on 09-15-2024 Basophils (Bld) [#/Vol] 0.09 10*3/uL [facility] Differential cell count method Nom (Bld) Auto [facility] Eosinophils (Bld) [#/Vol] 0.62 10*3/uL High [facility] Immature granulocytes (Bld) [#/Vol] 0.07 10*3/uL [facility] Immature granulocytes/100 WBC (Bld) 0.8 % [facility] Lymphocytes (Bld) [#/Vol] 1.48 10*3/uL [facility] Monocytes (Bld) [#/Vol] 0.84 10*3/uL [facility] Neutrophils (Bld) [#/Vol] 5.48 10*3/uL [facility] Nucleated RBC (Bld) [#/Vol] [facility] Nucleated RBC/100 WBC (Bld) [Ratio] 0 % /100 WBC [facility] Platelet mean volume (Bld) [Entitic vol] 9.8 fL 9.0 - 12.7 fL [facility] Platelets (Bld) [#/Vol] 296 10*3/uL [facility] WBC (Bld) [#/Vol] 8.58 10*3/uL [facility] CBC W AUTO DIFF BLDon [facility] BASOPHILS # BLD AUTO 0.09 [facility] DIFFERENTIAL METHOD BLD Auto [facility] EOSINOPHIL # BLD AUTO 0.62 High [facility] LYMPHOCYTES # BLD AUTO 1.48 [facility] MONOCYTES # BLD AUTO 0.84 [facility] NEUTROPHILS # BLD AUTO 5.48 [facility] NRBC # BLD AUTO <0.01 [facility] NRBC/100 WBC BLD-RTO 0 /100 WBC [facility] PLATELET # BLD AUTO 296 [facility] PMV BLD AUTO 9.8 fL 9.0 - 12.7 fL [facility] WBC # BLD AUTO 8.58 [facility] IMM GRANULOCYTES # BLD AUTO 0.07 [facility] IMM GRANULOCYTES/LEUK NFR BLD AUTO 0.8 % [facility] Specimen Type: BLOOD SPECIMEN Ordering Facility: [facility] Address: [address] [place] [address] Original Ordering Provider: WILLIAM HOWELL [facility] CREATINE KINASE/CKon 025 CK [Catalytic activity/Vol] 37 U/L Low 51 - 298 U/L [facility] Cholesterol [Mass/Vol]on Interpretation and review of laboratory results Normal [facility] Comprehensive metabolic 2000 panelon 09-15-2024 Albumin [Mass/Vol] 4.2 g/dL 3.9 - 4.9 g/dL [facility] ALP [Catalytic activity/Vol] 332 U/L High 38 - 113 U/L [facility] ALT [Catalytic activity/Vol] 64 U/L High 10 - 54 U/L [facility] Anion gap [Moles/Vol] 13 mmol/L 8 - 15 mmol/L [facility] AST [Catalytic activity/Vol] 29 U/L 14 - 40 U/L [facility] Bilirubin [Mass/Vol] 0.5 mg/dL 0.2 - 1 .3 mg/dL [facility] Calcium [Mass/Vol] 9.4 mg/dL 8.5 - 10. 2 mg/dL [facility] Chloride [Moles/Vol] 101 mmol/L 98 - 10 7 mmol/L [facility] CO2 [Moles/Vol] 24 mmol/L 22 - 30 mmol/L [facility] Creatinine [Mass/Vol] 0.46 mg/dL Low 0.73 - 1.22 mg/dL [facility] GFR/1.73 sq M.predicted among non-blacks MDRD (S/P/Bld) [Vol rate/Area] 124 mL/min/{1.73_m2} - PINF [facility] Comment on above: Estimated Glomerular Filtration Rate [...] not accurately reflect actual GFR. Glucose [Mass/Vol] 195 mg/dL High 74 - 99 mg/dL [facility] Comment on above: The [place] Diabete s Association (ADA) provides guidance for [...] Standards of Medical Care in Diabetes 2016, [place] Diabetes Association. Diabetes Care. 2016.39(Suppl 1). Potassium [Moles/Vol] 4.1 mmol/L 3.7 - 5.1 mmol/L [facility] Protein [Mass/Vol] 8 g/dL 6.3 - 8.0 g/dL [facility] Sodium [Moles/Vol] 138 mmol/L 136 - 144 mmol/L [facility] Urea nitrogen [Mass/Vol] 11 mg/dL 9 - 24 mg/dL [facility] DIRECT BILIRUBIN BLOODon Bilirubin.conjugated [Mass/Vol] 0.2 mg/dL NINF - 0.3 mg/dL [facility] ECG 12 leadon 09-15-2024 Ventricular Rate : 77 BPM Atrial Rate : 77 BPM P-R Interval : 164 ms QRS Duration : 94 ms Q-T Interval : 384 ms QTC Calculation(Bazett) : 434 ms Calculated P Holbrook : 20 degrees Calculated R Holbrook : 22 degrees Calculated T Holbrook : 16 degrees NORMAL SINUS RHYTHM MINIMAL VOLTAGE CRITERIA FOR LVH, MAY BE NORMAL VARIANT ( R in aVL ) BORDERLINE ECG NOTE: PLEASE SEE PHYSICIAN'S NOTE FROM E.D. VISIT Confirmed by MD HERNÁNDEZ CHRISTOPHER (), technical writer and editor SARAH EGAN ([id number]) on 09/15/2024 9:09:56 PM NAME : DERRELL AVITIA PID : [id number] : 1970 Gender : Male Race : ORD : [id number] Procedure Date : Sep 08 2024 10:55:46 Edit Date : Sep 15 2024 21:09:59 Diagnosis: NORMAL SINUS RHYTHM MINIMAL VOLTAGE CRITERIA FOR LVH, MAY BE NORMAL VARIANT ( R in aVL ) BORDERLINE ECG NOTE: PLEASE SEE PHYSICIAN'S NOTE FROM E.D. VISIT Confirmed by MD HERNÁNDEZ CHRISTOPHER (), technical writer and editor SARAH EGAN ([id number]) on 09/15/2024 9:09:56 PM Test Reason : Location : 2 : ED Overread By : MD HERNÁNDEZ CHRISTOPHER Edited By : SARAH EGAN Referred By : WILLIAM HOWELL Acquired by : SARAHY, [facility] Radiology, Radiologist, - 09/15/2024 Ventricular Rate : 77 BPM Atrial Rate : 77 BPM P-R Interval : 164 ms QRS Duration : 94 ms Q-T Interval : 384 ms QTC Calculation(Bazett) : 434 ms Calculated P Holbrook : 20 degrees Calculated R Holbrook : 22 degrees Calculated T Holbrook : 16 degrees NORMAL SINUS RHYTHM MINIMAL VOLTAGE CRITERIA FOR LVH, MAY BE NORMAL VARIANT ( R in aVL ) BORDERLINE ECG NOTE: PLEASE SEE PHYSICIAN'S NOTE FROM E.D. VISIT Confirmed by MD HERNÁNDEZ CHRISTOPHER (), technical writer and editor SARAH EGAN ([id number]) on 09/15/2024 9:09:56 PM NAME : DERRELL AVITIA PID : [id number] : 1970 Gender : Male Race : ORD : [id number] Procedure Date : Sep 08 2024 10:55:46 Edit Date : Sep 15 2024 21:09:59 Diagnosis: NORMAL SINUS RHYTHM MINIMAL VOLTAGE CRITERIA FOR LVH, MAY BE NORMAL VARIANT ( R in aVL ) BORDERLINE ECG NOTE: PLEASE SEE PHYSICIAN'S NOTE FROM E.D. 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 DERRELL AVITIA JR : 1970 Age: 53 years Gender: M Primary rhythm: sinus. Height: 179.50 cm BSA: 2.44 m? Weight: 119.00 kg BMI: 36.9 kg/m? Heart rate 66 bpm Blood pressure 145/98 mmHg Technically difficult exam due to suboptimal positioning, left arm injury and body habitus. Color Doppler was utilized to interrogate the cardiac valves assessed and spectral Doppler was utilized to determine the flow velocities and pressure gradients reported in this exam. Myocardial strain analysis was performed in this exam to aid in the assessment of cardiac function. MEASUREMENTS: Value Indexed Normal Max aortic dimension 4.2 cm Ao < 3.8 LV ID (diastole) 4.0 cm (2D) 1.66 cm/m? LV ID (systole) 3.0 cm (2D) 1.21 cm/m? IVS, leaflet tips 1.3 cm (2D) Posterior wall thickness 1.2 cm (2D) Left ventricular mass 174 g (2D) 71 g/m? Global peak long strain -16.1 % LV stroke volume 91 ml (2D biplane) LV end diastolic volume 157 ml (2D biplane) 64.4 ml/m? 34<=EDVi<75 LV end systolic volume 66 ml (2D biplane) 26.9 ml/m? Ejection Fraction 58 % (2D biplane) EF > 52 FINDINGS: LEFT VENTRICLE The left ventricle is normal in size. Left ventricular systolic function is normal. Global LV myocardial strain is normal. Left ventricular diastolic function was not evaluated. Wall Motion: All scored segments are normal. RIGHT VENTRICLE The right ventricle is normal in size. Right ventricular systolic function is normal globally. RV systolic tissue Doppler velocity is 18.0 cm/s. Tricuspid annular displacement is 2.3 cm. Estimated right ventricular systolic pressure is not reported due to an insufficient tricuspid regurgitation signal. Estimated right atrial pressure is not included as the IVC was not seen. MITRAL VALVE There is no mitral valve regurgitation. There is no thickening. The pressure half time is 76 msec. The peak mitral E/A ratio is 1.17. The mitral flow deceleration time is 263 msec. TRICUSPID VALVE The tricuspid valve leaflets are structurally normal. There is trace tricuspid valve regurgitation. AORTIC VALVE There is trace aortic valve regurgitation. Tricuspid aortic valve. There is mild thickening. PULMONIC VALVE There is trace pulmonic valve regurgitation. There is no thickening. AORTA The visualized aorta is dilated. Measurements - Sinus: 4.2 cm. PULMONARY ARTERIES The pulmonary arteries are unseen or not interrogated. PERICARDIUM There is no pericardial effusion. There is an epicardial fat pad. CONCLUSIONS: - Technically difficult exam due to suboptimal positioning, left arm injury and body habitus. - Exam indication: Baseline and serial evaluation in a patient undergoing therapy with cardiotoxic agents - The left ventricle is normal in size. Left ventricular systolic function is normal. EF = 58 ? 5% (2D biplane) LVGLS: -16.1% - The right ventricle is normal in size. Right ventricular systolic function is normal. - The visualized aorta is dilated with a maximal dimension of 4.2 cm. - Exam was compared with the prior echocardiographic exam performed on 06/16/2024. There is no significant change. * * * Final * * * [employer] : 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 DERRELL AVITIA JR : 1970 Age: 53 years Gender: M Primary rhythm: sinus. Height: 179.50 cm BSA: 2.44 m? Weight: 119.00 kg BMI: 36.9 kg/m? Heart rate 66 bpm Blood pressure 145/98 mmHg Technically difficult exam due to suboptimal positioning, left arm injury and body habitus. Color Doppler was utilized to interrogate the cardiac valves assessed and spectral Doppler was utilized to determine the flow velocities and pressure gradients reported in this exam. Myocardial strain analysis was performed in this exam to aid in the assessment of cardiac function. MEASUREMENTS: Value Indexed Normal Max aortic dimension 4.2 cm Ao < 3.8 LV ID (diastole) 4.0 cm (2D) 1.66 cm/m? LV ID (systole) 3.0 cm (2D) 1.21 cm/m? IVS, leaflet tips 1.3 cm (2D) Posterior wall thickness 1.2 cm (2D) Left ventricular mass 174 g (2D) 71 g/m? Global peak long strain -16.1 % LV stroke volume 91 ml (2D biplane) LV end diastolic volume 157 ml (2D biplane) 64.4 ml/m? 34<=EDVi<75 LV end systolic volume 66 ml (2D biplane) 26.9 ml/m? Ejection Fraction 58 % (2D biplane) EF > 52 FINDINGS: LEFT VENTRICLE The left ventricle is normal in size. Left ventricular systolic function is normal. Global LV myocardial strain is normal. Left ventricular diastolic function was not evaluated. Wall Motion: All scored segments are normal. RIGHT VENTRICLE The right ventricle is normal in size. Right ventricular systolic function is normal globally. RV systolic tissue Doppler velocity is 18.0 cm/s. Tricuspid annular displacement is 2.3 cm. Estimated right ventricular systolic pressure is not reported due to an insufficient tricuspid regurgitation signal. Estimated right atrial pressure is not included as the IVC was not seen. MITRAL VALVE There is no mitral valve regurgitation. There is no thickening. The pressure half time is 76 msec. The peak mitral E/A ratio is 1.17. The mitral flow deceleration time is 263 msec. TRICUSPID VALVE The tricuspid valve leaflets are structurally normal. There is trace tricuspid valve regurgitation. AORTIC VALVE There is trace aortic valve regurgitation. Tricuspid aortic valve. There is mild thickening. PULMONIC VALVE There is trace pulmonic valve regurgitation. There is no thickening. AORTA The visualized aorta is dilated. Measurements - Sinus: 4.2 cm. PULMONARY ARTERIES The pulmonary arteries are unseen or not interrogated. PERICARDIUM There is no pericardial effusion. There is an epicardial fat pad. CONCLUSIONS: - Technically difficult exam due to suboptimal positioning, left arm injury and body habitus. - Exam indication: Baseline and serial evaluation in a patient undergoing therapy with cardiotoxic agents - The left ventricle is normal in size. Left ventricular systolic function is normal. EF = 58 ? 5% (2D biplane) LVGLS: -16.1% - The right ventricle is normal in size. Right ventricular systolic function is normal. - The visualized aorta is dilated with a maximal dimension of 4.2 cm. - Exam was compared with the prior echocardiographic exam performed on 06/16/2024. There is no significant change. * * * Final * * * [employer] : [id number]^Syng oDynamics^SI^FLORIAN ID [facility] Radiology Study observation (narrative) [facility] ECHOOrdered By: Radiologist Radiology on 09-15-2024 [facility] Work Phone: HIGH SENSITIVITY TROPONIN To n 09-15-2024 Troponin T.cardiac High sensitivity method [Mass/Vol] 51 ng/L High NINF - 12 ng/L [facility] LIPASEon 09-15-2024 Lipase [Catalytic activity/Vol] 21 U/L 16 - 61 U/L [facility] Laboratory - Hematology and Cell countson 09-15-2024 Basophils/100 WBC (Bld) 1 % [facility] Eosinophils/100 WBC (Bld) 7.2 % [facility] Erythrocyte distribution width (RBC) [Ratio] 14.8 % 11.5 - 15.0 % [facility] Hematocrit (Bld) [Volume fraction] 44.8 % 39.0 - 51.0 % [facility] Hemoglobin (Bld) [Mass/Vol] 15 g/dL 13.0 - 17.0 g/dL [facility] Lymphocytes/100 WBC (Bld) 17.2 % [facility] MCH (RBC) [Entitic mass] 26.6 pg 26.0 - 34.0 pg [facility] MCHC (RBC) [Mass/Vol] 33.5 g/dL 30.5 - 36.0 g/dL [facility] MCV (RBC) [Entitic vol] 79.4 fL Low 80.0 - 100.0 fL [facility] Monocytes/100 WBC (Bld) 9.8 % [facility] Neutrophils/100 WBC (Bld) 64 % [facility] RBC (Bld) [#/Vol] 5.64 10*6/uL 4.20 - 6.0 0 m/uL [facility] MAGNESIUMon 09-15-2024 Magnesium [Mass/Vol] 2 mg/dL 1.7 - 2 .3 mg/dL [facility] No Panel Informationon 09-15 Interpretation and review of laboratory results Abnormal [facility] Interpretation and review of laboratory results Normal [facility] Interpretation and review of laboratory results Abnormal [facility] Interpretation and review of laboratory results Normal [facility] Interpretation and review of laboratory results Abnormal [facility] PHOSPHORUS INORGANICon 09-15 Phosphate [Mass/Vol] 4.1 mg/dL 2.7 - 4 .8 mg/dL [facility] PT panel Coag (PPP)on 2024 INR Coag (PPP) [Relative time] 1.1 {INR} 0.9 - 1.3 [facility] Comment on above: Vitamin K Antagonist (VKA) Therapeutic Range: INR 2 to 3 (Target INR of 2.5) Note: For patients treated with VKA drugs, such as warfarin, the [place] College [employer]icians 2012 Guideline recommends [...] Chest 2012, 141:7S-47S Surinder RA, et al. JACC 2017, 70: 252-289 PT Coag (PPP) [Time] 11.4 s [facility] TOTAL CHOLESTEROLon 09-16-19 25 Cholesterol [Mass/Vol] 194 mg/dL NINF - 200 mg/dL [facility] Comment on above: <200 mg/dL, Desirabl e 200-239 mg/dL, Borderline high >239 mg/dL, High Reference: 1. National Cholesterol Education Program ATP III Guideline At-A-Glance Quick Desk Reference: National Heart, Lung, and Blood [place]. National Institutes of Health. 2001: NIH Publication No. 01-3305. TRIGLYCERIDESon 09-15-2024 Triglyceride [Mass/Vol] 225 mg/dL High NINF - 150 mg/dL [facility] Comment on above: <150 mg/dL, Normal 150-199 mg/dL, Borderline high 200-499 mg/dL, High >499 mg/dL, Very high Reference: 1. National Cholesterol Education Program ATP III Guideline At-A-Glance Quick Desk Reference: National Heart, Lung, and Blood [place]. National Institutes of Health. 2001: NIH Publication No. 01-3305. Triglyceride [Mass/Vol]on Fasting Time 11 hrs [facility] URIC ACIDon 09-15-2024 Urate [Mass/Vol] 3.3 mg/dL Low 4.0 - 8.1 mg/dL [facility] URINALYSIS, DIPSTICK ONLYon 09-15-2024 Bilirubin Ql (U) Negative Negative [facility] Clarity (Unsp spec) Clear Clear [facility] Color (U) Yellow Yellow [facility] Glucose Test strip (U) [Mass/Vol] 3+ Abnormal Negative [facility] Hemoglobin Ql (U) Negative Negative [facility] Interpretation and review of laboratory results Abnormal [facility] Ketones Ql (U) 1+ Abnormal Negative [facility] Leukocyte esterase Test strip Ql (U) Negative Negative [facility] Nitrite Ql (U) Negative Negative [facility] pH (U) 5.5 [pH] NINF - 8.5 [facility] Protein (U) [Mass/Vol] Negative Negative [facility] Specific gravity (U) [Rel density] 1.042 High 1.005 - 1.030 [facility] Urobilinogen Ql (U) 0.2 EU/dL 0.2-1.0 EU/dL [facility] Please draw this lab on this exact day: 4. [facility] aPTT Coag (PPP) [Time]on Unfractionated Heparin Therapeutic Ranges: Standard Heparin Nomogram: [...] laboratory APTT reagent in use throughout the [facility]. [facility] FLOW CYTOMETRY FOR LEUKE EZEQUIEL/LYMPHOMA (FCLL) PERFORMABLEon 09-10-2024 CC FLOW CYTOMETRY ORDER STATUS Results will be reported under F case ID when completed [facility] Healthcare Specimen Type: SPECIMEN OBTAINED BY ASPIRATION Ordering Facility: [facility] Address: [address] [place] [address] Original Ordering Provider: WILLIAM MURRAY FLOW CYTOMETRY FOR LEUKEMIA/ LYMPHOMA (FCLL) PERFORMABLEOrdered By: Yasemin Schilling on 09-10-2024 Flow Cytometry Order Status Results will be reported under F case ID when completed [facility] GLUCOSE, BLOOD (POC)on 09-10 Glucose [Mass/Vol] 203 mg/dL Abnormal 74 - 99 mg/dL [facility] Comment on above: Location:[facility] singh, [address] [place] [address], [facility] The Accu-Chek Inform II glucose meter [...] Interpretation and review of laboratory results Abnormal [facility] No Panel [facility]on 09-10 [facility] DIFF BLDon Basophils/100 WBC (Bld) 0.9 % [facility] BASOPHILS # BLD AUTO 0.08 [facility] DIFFERENTIAL METHOD BLD Auto [facility] EOSINOPHIL # BLD AUTO 0.58 High [facility] LYMPHOCYTES # BLD AUTO 1.99 [facility] MONOCYTES # BLD AUTO 0.78 [facility] NEUTROPHILS # BLD AUTO 5.78 [facility] NRBC # BLD AUTO <0.01 [facility] NRBC/100 WBC BLD-RTO 0 /100 WBC [facility] PLATELET # BLD AUTO 278 [facility] PMV BLD AUTO 10.3 fL 9.0 - 12.7 fL [facility] WBC # BLD AUTO 9.3 [facility] Eosinophils/100 WBC (Bld) 6.2 % [facility] Erythrocyte distribution width (RBC) [Ratio] 14.6 % 11.5 - 15.0 % [facility] Hematocrit (Bld) [Volume fraction] 43.6 % 39.0 - 51.0 % [facility] Hemoglobin (Bld) [Mass/Vol] 14.6 g/dL 13.0 - 17.0 g/dL [facility] IMM GRANULOCYTES # BLD AUTO 0.09 NINF [facility] IMM GRANULOCYTES/LEUK NFR BLD AUTO 1 % [facility] Interpretation and review of laboratory results Abnormal [facility] Lymphocytes/100 WBC (Bld) 21.4 % [facility] MCH (RBC) [Entitic mass] 26.7 pg 26.0 - 34.0 pg [facility] MCHC (RBC) [Mass/Vol] 33.5 g/dL 30.5 - 36.0 g/dL [facility] MCV (RBC) [Entitic vol] 79.7 fL Low 80.0 - 100.0 fL [facility] Monocytes/100 WBC (Bld) 8.4 % [facility] Neutrophils/100 WBC (Bld) 62.1 % [facility] RBC (Bld) [#/Vol] 5.47 10*6/uL 4.20 - 6.0 0 m/uL [facility] Specimen Type: BLOOD SPECIMEN Ordering Facility: [facility] Address: [address] [place] [address] Original Ordering Provider: WILLIAM MURRAY [facility] Coding Queryon 09-07-[address] Kilpatrick, The indication for surgery and the body of the note suggest the surgery was performed on the left side; however, the pre and post op diagnoses and the operation description all state the right. Can you please addend the operative report to state which is correct? Thank you, Abbie Day HIM Coding [Electronically Signed on: 09/13/2024 14:39 EDT] KAPIL KILPATRICK DO [Verified on: 09/13/2024 14:39 EDT] KAPIL KILPATRICK DO [Transcribed on: 09/07/2024 09:18 EDT] [facility] MAGR Intraoperative Recordon 08-20-2024 MAGR Intraoperative Record MAGR Intra-Op Record Summary Primary Physician: KAPIL KILPATRICK DO Finalized Date/Time: 08/20/24 12:12:28 Pt. Name: DERRELL AVITIA Jr./Sex: 1970 MALE Med Rec #: [id number] Physician: KAPIL KILPATRICK DO Financial #: [id number] Pt. Type: D Room/Bed: / Admit/Disch: 08/16/24 09:10:44 - 08/16/24 15:57:00 Institution: Case Times MAGR Entry 1 Patient In Room Time 08/16/24 12:38:00 Out Room Time 08/16/24 14:42:00 Anesthesia Start Time 08/16/24 12:37:00 Stop Time 08/16/24 14:43:00 Surgery Start Time 08/16/24 13:17:00 Stop Time 08/16/24 14:38:00 Last Modified By: Emily Mccoy RN 08/16/24 14:44:06 Case Attendance MAGR Entry 1 Entry 2 Entry 3 Case Attendee KAPIL KILPATRICK Robert M MD Kokinda, Diane RN Role Performed Surgeon - Primary Anesthesiologist of [employer] Room Worker Record Time In 08/16/24 13:05:00 08/16/24 12:38:00 08/16/24 12:38:00 Time Out 08/16/24 14:30:00 08/16/24 14:42:00 08/16/24 14:42:00 Procedure Arthroscopy Arthroscopy Arthroscopy Shoulder(Left) Shoulder(Left) Shoulder(Left) Last Modified By: Emily Mccoy RN, Diane RN Kokinda, Diane RN 08/16/24 14:42:24 08/16/24 14:42:24 08/16/24 14:42:24 Entry 4 Entry 5 Entry 6 Case Attendee Nieves Garcia RN, Deanna CST Bloemer, Kelly CST Role Performed [employer] Worker Scrub Personnel Scrub Personnel Time In 08/16/24 12:38:00 08/16/24 12:38:00 08/16/24 12:38:00 Time Out 08/16/24 13:17:00 08/16/24 14:42:00 08/16/24 14:42:00 Procedure Arthroscopy Arthroscopy Arthroscopy Shoulder(Left) Shoulder(Left) Shoulder(Left) Last Modified By: Emily Mccoy RN, Diane RN Kokinda, Diane RN 08/16/24 14:42:24 08/16/24 14:42:24 08/16/24 14:42:24 Entry 7 Case Attendee Elvira Escobar BRAND RECORDER Role Performed Labor And Employment Paralegal Time In 08/16/24 12:38:00 Time Out 08/16/24 14:42:00 Procedure Arthroscopy Shoulder(Left) Last Modified By: Emily Mccoy RN 08/16/24 14:42:24 General Comments: CAROLINE P-STORZ REP ARNOLD L - ARTHREX REP Surgical Procedures MAGR Pre-Care Text: A.20 Verifies operative procedure, surgical site, and laterality Im.150 Develops individualized plan of care Entry 1 Procedure Arthroscopy Shoulder Primary Procedure Yes Primary Surgeon KAPIL KILPATRICK DO Modifiers Left Surgeon Comment LEFT SHOULDER Start 08/16/24 13:17:00 ARTHROSCOPY WITH ROTATOR CUFF REPAIR AND BICEP TENODESIS Stop 08/16/24 14:38:00 Anesthesia Type General Surgical Service Orthopedics Wound Class Clean Technique Details Closure Technique Primary Entire procedure No was performed via laparoscope or robotic assistance Last Modified By: Emily Mccoy RN 08/16/24 14:42:25 Post-Care Text: O.730 The patient's care is consistent with the individualized perioperative plan of care General Case Data MAGR Pre-Care Text: A.350.1 Classifies surgical wound Entry 1 Case Information OR MAGR OR 01 Case Level Level 4 Wound Class Clean Specialty Orthopedics ASA Class 3 Diagnosis Preop Diagnosis left rotator cuff tear Postop Same As Preop Yes Postop Diagnosis left rotator cuff tear Blunt or No Is the procedure No penetrating injury considered occured prior to Emergent/Urgent? the start of the procedure: Last Modified By: Emily Mccoy RN 08/16/24 13:21:55 Post-Care Text: O.760 Patient receives consistent and comparable care regardless of the setting Time Out MAGR Entry 1 Procedure(s) Arthroscopy Shoulder(Left) Time Out Checklist Verifications Team Introductions Yes Confirmed Identity, Yes Completed Procedure, Incision Site, and Consent(s) Presence of Yes Site Verification, Yes Necessary Site Marking, Site Procedural Marking Equipment, Devices, Alternative, and/or and Implants Site Marking Verified Exception in Accordance with Facility Policy Anesthesia Review Antibiotic Received Yes All Anesthesia Yes Within an Concerns Addressed Appropriate Time Interval Prior to Surgical Incision Surgeon Review Anticipated Blood Yes Expected Case Yes Loss Risk Addressed Duration Addressed Critical and Yes Non-Routine Steps to be Performed Addressed Nurse Review Equipment Yes Fire Risk Yes Checks/Concerns Assessment Addressed Completed and Interventions Performed Diagnostic and Yes Sterilization n/a Radiological Test Concerns Addressed Results Displayed are Appropriate and Labeled Other Concerns n/a Addressed Time Out Alis Jacksno BRAND RECORDER, Time Out Time 08/16/24 13:16:00 Participants Emily Mccoy RN, Yan Garrison MD, Elvira Escobar BRAND RECORDER, KAPIL KILPATRICK DO, Nieves Garcia RN, Margarita Pitt BRAND RECORDER Last Modified By: Emily Mccoy RN 08/16/24 13:22:07 Patient Positioning MAGR Pre-Care Text: A.280 Identifies baseline musculoskeletal status Im.40 Positions the patient Im.80 Applies safety devices Entry 1 Procedure Arthroscopy Body Position Lateral Shoulder(Left) (more content not included)... [facility] Anesthesia Noteon 08-17-2024 Anesthesia Note [id number] [facility] 08-17-2024 Consent Forms [id number]# 1.00[facility] Outside Recordson 08-17-2024 Outside Records [id number]# 1.00[facility] Telemetry Stripson Telemetry Strips [id number]# 1.00[facility] Anest[facility] Noteon 08-16-2024 Anesthesia Note Patient: RENÉ EscobedoDERRELL Aracelis Age: 53 years Sex: MALE : 1970 Associated Diagnoses: None Author: Yan Garrison MD Postoperative Information Post Operative Note: Operative Day. Anesthetic utilized: General. Health Status Allergies: Allergic Reactions (All) Mild Morphine- Nausea and vomiting. Problem list: All Problems CML (chronic myelocytic leukemia) / SNOMED CT 109073861 / Confirmed HTN (hypertension) / SNOMED CT 8685430633 / Confirmed Apnea, sleep / SNOMED CT 431345136 / Confirmed Type 2 diabetes mellitus / SNOMED CT 875363292 / Confirmed Physical Examination Vital Signs (last 24 hrs) Last Charted Temp Temporal L 36.2 DegC (AUG 16 14:42) Heart Rate Monitored 69 bpm (AUG 16 14:50) Resp Rate 16 br/min (AUG 16 14:50) SBP 117 mmHg (AUG 16 14:50) DBP 73 mmHg (AUG 16:50) Review / Management Condition: Stable. Assessment Anesthetic outcome No anesthetic complications noted. Adequate pain relief. awake, alert, VSS, comfortable. adequate hydration. No Complaint of nausea and vomiting. Plan Transfer/ Discharge: Patient can be discharged from PACU when criteria met. Condition good. [Electronically Signed on: 08/16/2024 15:00 EDT] Yan Garrison MD [Verified on: 08/16/2024 15:00 EDT] Yan Garrison MD [facility] Anesthesia Note Patient: DERRELL AVITIA Jr Age: 53 years Sex: MALE : 1970 Associated Diagnoses: None Author: Yan Garrison MD Preoperative Information Anesthesia history: Patient history: No difficult intubation, No malignant hyperthermia. Family history: No malignant hyperthermia. Review of Systems Constitutional: Negative. Respiratory: Negative, No shortness of breath. Cardiovascular: No chest pain. Neurologic: Alert and oriented X4. Health Status Allergies: Allergic Reactions (All) Mild Morphine- Nausea and vomiting. Current medications: Home Medications (7) Active amLODIPine 10 mg oral tablet 10 mg = 1 tab(s), Oral, Daily HumaLOG 100 units/mL injectable solution 5 unit(s), Subcutaneous, TIDAC Jardiance 25 mg oral tablet Lantus Solostar Pen 100 units/mL subcutaneous solution lisinopril 20 mg oral tablet 20 mg = 1 tab(s), Oral, Daily pravastatin 80 mg oral tablet 80 mg = 1 tab(s), Oral, Daily trial drug for CML 3 cap(s), Oral, Every other day Problem list: All Problems CML (chronic myelocytic leukemia) / SNOMED CT 804056177 / Confirmed HTN (hypertension) / SNOMED CT 5512733476 / Confirmed Apnea, sleep / SNOMED CT 253411385 / Confirmed Type 2 diabetes mellitus / SNOMED CT 955302672 / Confirmed Histories Family History: No family history items have been selected or recorded. Procedure history: Back (890800466). Comments: 07/28/2024 9:25 Jose Miguel Jordan RN l4, l5 fusion Cholecystectomy (16074796). Comments: 07/28/2024 9:26 Jose Miguel Jordan RN laparascopic Tonsillectomy and adenoidectomy (708548178). Right shoulder joint region arthroscopy (9148838640). Comments: 07/28/2024 9:25 Jose Miguel Jordan RN rotator cuff Arthroscopy of right knee joint (9374351337). Size of tongue (703805643). Comments: 07/28/2024 9:27 Jose Miguel Jordan RN reduced Social History Electronic Cigarette/Vaping Assessment Electronic Cigarette Use: Never. Alcohol Assessment Use: Current. 1-2 times per year Tobacco Assessment Never tobacco user Tobacco Use:. Substance Abuse Assessment Substance use: Never. . Social & Psychosocial Habits Alcohol 07/28/2024 Alcohol Use: Current Frequency: 1-2 times per year Substance Use 07/28/2024 Substance use: Never Tobacco 07/28/2024 Smoking tobacco use: Never tobacco user Electronic Cigarette/Vaping 07/28/2024 Electronic Cigarette Use: Never . Physical Examination Vital Signs (last 24 hrs) Last Charted Temp Temporal L 36 DegC (AUG 16:) Heart Rate Peripheral H 101 bpm (AUG 16:) Resp Rate 18 br/min (AUG 16) SBP H 144 mmHg (AUG 16:) DBP H 99 mmHg (AUG 16:) Airway: Mallampati classification: II (soft palate, fauces, uvula visible). Temporomandibular joint mobility: Good. Mouth: Adequate opening, Teeth ( Missing, many missing, chipped and broken, but denies any loose ). Neck: Supple, Non-tender, Full range of motion. Respiratory: Lungs are clear to auscultation, Respirations are non-labored, Breath sounds are equal. Cardiovascular: Normal rate, Regular rhythm. Neurologic: Alert, Oriented. Review / Management Laboratory Results Plan [place] [employer] Anesthesiologists (ASA) physical status classification: Class III. Anesthetic Preoperative Plan Anesthesia: General. , Regional (Interscalene Block, for post op pain control per surgeon request). Anesthetic plan, risks, benefits, and alternatives discussed with the patient and/or family. Patient verbalized understanding. [Electronically Signed on: 08/16/2024 10:45 EDT] Yan Garrison MD [Verified on: 08/16/2024 10:45 EDT] Yan Garrison MD [facility] Inpatient Patient Summaryon 08-16-2024 [place] [address] Patient Discharge Instructions Name: DERRELL AVITIA Jr : 1970 Patient Address: [address] [place] [address] Primary Care Provider: Name: AMAN PACK After you are discharged if you find you have any questions, please, call [phone] ext [phone] to speak to a nurse. Discharge Diagnosis: Complete rotator cuff tear of left shoulder Prescription Information: If you have been given a prescription for narcotics, seek immediate medical attention if you have any difficulty breathing or any sudden status changes such as confusion and sleepiness. If you or anyone you know is experiencing suicidal thoughts, mental health, alcohol and/or drug addiction problems; contact the [facility] 30/12 Crisis Hotline -Text 4HUKD to 922781. If you received any narcotics, sedation, or any other medication that causes drowsiness for the next 24 hours, unless otherwise directed: ? Do not drive a car. ? Do not operate machinery such as power tools, lawn mowers, drills, sewing machines, or stoves ? Avoid alcoholic beverages and drugs for allergies, nerves, or sleep ? Do not make important personal or business decisions or sign any legal documents [facility] would like to thank you for allowing us to assist you with your healthcare needs. The following includes patient education materials and information regarding your injury/illness. DERRELL AVITIA Jr has been given the following list of follow-up instructions, prescriptions, and patient education materials: Follow-up Instructions With: Address: When: Yaniv Hernandez [address] [place] [id number] [facility] (1) 08/30/2024 8:30 AM Medications During the course of your visit, your medication list was updated with the most current information. The details of those changes are reflected below: Medications to Continue That Have Not Changed Other Medications amLODIPine (amLODIPine 10 mg oral tablet) 1 tab(s) Oral (given by mouth) every day. empagliflozin (Jardiance 25 mg oral tablet) TAKE 1 TABLET BY MOUTH IN THE MORNING WITH A MEAL. insulin glargine (Lantus Solostar Pen 100 units/mL subcutaneous solution) INJECT 35 UNITS SUBCUTANEOUSLY (UNDER THE SKIN) TWICE DAILY. insulin lispro (HumaLOG 100 units/mL injectable solution) 5 unit(s) Subcutaneous (under the skin) 3 times a day before meals. per sliding scale. lisinopril (lisinopril 20 mg oral tablet) 1 tab(s) Oral (given by mouth) every day. pravastatin (pravastatin 80 mg oral tablet) 1 tab(s) Oral (given by mouth) every day. Template Non-Formulary (trial drug for CML) 3 cap(s) Oral (given by mouth) every other day. It is important to always keep an active list of medications available so that you can share with other providers and manage your medications appropriately. As an additional courtesy, we are also providing you with your final active medications list that you can keep with you. amLODIPine (amLODIPine 10 mg oral tablet) 1 tab(s) Oral (given by mouth) every day. empagliflozin (Jardiance 25 mg oral tablet) TAKE 1 TABLET BY MOUTH IN THE MORNING WITH A MEAL. insulin glargine (Lantus Solostar Pen 100 units/mL subcutaneous solution) INJECT 35 UNITS SUBCUTANEOUSLY (UNDER THE SKIN) TWICE DAILY. insulin lispro (HumaLOG 100 units/mL injectable solution) 5 unit(s) Subcutaneous (under the skin) 3 times a day before meals. per sliding scale. lisinopril (lisinopril 20 mg oral tablet) 1 tab(s) Oral (given by mouth) every day. pravastatin (pravastatin 80 mg oral tablet) 1 tab(s) Oral (given by mouth) every day. Template Non-Formulary (trial drug for CML) 3 cap(s) Oral (given by mouth) every other day. Take only the medications listed above. Contact your doctor prior to taking any medications not on this list. Diet & Activity Patient Activity Level: As Tolerated Patient Diet: Prudent AHA Diet, ADA Diet Patient Activity Restrictions: Discontinue Alcohol Use, No driving, No heavy lifting, Stop Smoking Comment: Patient education materials, if any, will display below Outpatient Shoulder Discharge Instructions 1.) For the next 24 hours, do not drink any alcoholic beverages, drive a motor vehicle, operate machinery or power tools, make any important decisions or sign important papers. 2.) Rest at home with moderate activity as tolerated for at least 24 hours. 3.) You may feel dizzy, lightheaded or sleepy following surgery. Please, have someone with you for the rest of the day and during the night. 4.) You may eat when you prefer, but it is usually best to start with liquids and gradually work up to solid foods. 5.) If you experience persistent nausea or vomiting, pain not controlled with your pain medicine and ice, bleeding that you feel is excessive, swelling or fever, please call Dr. Kilpatrick at [phone]. 6.) Keep (more content not included)... Normal [facility] MAGR Intraoperative Recordon 08-16-2024 MAGR Intraoperative Record MAGR Intra-Op Record Summary Primary Physician: Finalized Date/Time: 08/16/24 13:06:16 Pt. Name: DERRELL AVITIA Jr./Sex: 1970 MALE Med Rec #: [id number] Physician: KAPIL KILPATRICK DO Financial #: [id number] Pt. Type: D Room/Bed: / Admit/Disch: 08/16/24 09:10:44 - Institution: Case Times MAGR Entry 1 Patient In Room Time 08/16/24 10:53:00 Out Room Time 08/16/24 12:38:00 Anesthesia Start Time 08/16/24 10:54:00 Stop Time 08/16/24 11:06:00 Surgery Start Time 08/16/24 11:01:00 Stop Time 08/16/24 11:06:00 Last Modified By: Jose Miguel Kaufman RN 08/16/24 13:05:23 Case Attendance MAGR Entry 1 Entry 2 Entry 3 Case Attendee Yan Garrison MD, Sidsel RN Draper, Lora RN Role Performed Anesthesiologist of Yarn Dry Room Worker Yarn Dry Room Worker Record Time In 08/16/24 10:53:00 08/16/24 10:53:00 08/16/24 10:53:00 Time Out 08/16/24 12:38:00 08/16/24 12:38:00 08/16/24 12:38:00 Procedure Interscalene Block Interscalene Block Interscalene Block Last Modified By: Radha Munson RN, Lora RN Halblaub, Sidsel RN 08/16/24 12:40:02 08/16/24 12:40:02 08/16/24 13:05:34 Surgical Procedures MAGR Pre-Care Text: A.20 Verifies operative procedure, surgical site, and laterality Im.150 Develops individualized plan of care Entry 1 Procedure Interscalene Block Primary Procedure Yes Primary Surgeon Yan Garrison MD Surgeon Comment SCALENE BLOCK PRIOR TO SHOULDER ARTHROSCOPY Start 08/16/24 10:53:00 Stop 08/16/24 11:06:00 Anesthesia Type Regional Block Surgical Service Anesthesia Wound Class Clean Technique Details Closure Technique Non-Primary Entire procedure No was performed via laparoscope or robotic assistance Last Modified By: Jose Miguel Kaufman RN 08/16/24 13:06:02 Post-Care Text: O.730 The patient's care is consistent with the individualized perioperative plan of care General Case Data MAGR Pre-Care Text: A.350.1 Classifies surgical wound Entry 1 Case Information OR MAGR Proc Room Case Level None Wound Class Clean Specialty Anesthesia ASA Class 3 Diagnosis Preop Diagnosis SCALENE BLOCK PRIOR TO Postop Same As Preop Yes SHOULDER ARTHROSCOPY Postop Diagnosis SCALENE BLOCK PRIOR TO SHOULDER ARTHROSCOPY Blunt or No Is the procedure No penetrating injury considered occured prior to Emergent/Urgent? the start of the procedure: Last Modified By: Jose Miguel Kaufman RN 08/16/24 11:26:12 Post-Care Text: O.760 Patient receives consistent and comparable care regardless of the setting Time Out MAGR Entry 1 Procedure(s) Interscalene Block Time Out Checklist Verifications Team Introductions Yes Confirmed Identity, Yes Completed Procedure, Incision Site, and Consent(s) Presence of No Site Verification, Yes Necessary Site Marking, Site Procedural Marking Equipment, Devices, Alternative, and/or and Implants Site Marking Verified Exception in Accordance with Facility Policy Anesthesia Review Antibiotic Received n/a All Anesthesia Yes Within an Concerns Addressed Appropriate Time Interval Prior to Surgical Incision Surgeon Review Anticipated Blood Yes Expected Case Yes Loss Risk Addressed Duration Addressed Critical and Yes Non-Routine Steps to be Performed Addressed Nurse Review Equipment Yes Fire Risk Yes Checks/Concerns Assessment Addressed Completed and Interventions Performed Diagnostic and n/a Sterilization n/a Radiological Test Concerns Addressed Results Displayed are Appropriate and Labeled Other Concerns n/a Addressed Time Out Yan Garrison MD, Time Out Time 08/16/24 10:54:00 Participants Jose Miguel Kaufman RN, Radha Munson RN Last Modified By: Jose Miguel Kaufman RN 08/16/24 11:30:13 Patient Positioning MAGR Pre-Care Text: A.280 Identifies baseline musculoskeletal status Im.40 Positions the patient Im.80 Applies safety devices Entry 1 Procedure Interscalene Block Body Position Supine Left Arm Position Resting at Side Right Arm Position Resting at Side Left Leg Position Extended Right Leg Position Extended Feet Uncrossed? Yes Press Points Checked Yes Outcome Met (O.80) Yes Last Modified By: Jose Miguel Kaufman RN 08/16/24 11:28:21 Post-Care Text: E.290 Evaluates musculoskeletal status O.80 Patient is free from signs and symptoms of injury related to positioning Skin Prep MAGR Pre-Care Text: A.30 Verifies allergies Im.270 Performs skin preparation Im.270.1 Implements protective measures to prevent skin and tissue injury due to chemical sources Entry 1 Skin Prep Syntegrity Prep Agents (Im.270) Chlorhexidine Gluconate Prep By Yan Garrison MD and Alcohol Prep Area (Im.270) Shoulder, Neck Prep Area Details Left Skin Prep Agent Dry Yes Without Pooling Hair Removal Syntegrity Hair Removal Methods No hair removal performed Outcome Met (O.100) Yes Last Modified By: Jose Miguel Kaufman RN 08/16/24 11:29:17 Post-Care Text: E.10 Eval (more content not included)... [facility] MAGR PACU Recordon MAGR PACU Record MAGR PACU Record Summary Primary Physician: KAPIL KILPATRICK DO Finalized Date/Time: 08/16/24 15:12:09 Pt. Name: DERRELL AVITIA Jr./Sex: 1970 MALE Med Rec #: [id number] Physician: KAPIL KILPATRICK DO Financial #: [id number] Pt. Type: D Room/Bed: / Admit/Disch: 08/16/24 09:10:44 - Institution: PACU Case Times MAGR Entry 1 In PACU I 08/16/24 14:42:00 Discharge from PACU 08/16/24 15:10:00 I Last Modified By: Lynne Umaña RN 08/16/24 15:11:59 Finalized By: Lynne Umaña RN Document Signatures Signed By: Lynne Umaña RN 08/16/24 15:12 [facility] MAGR Postoperative Recordon 03-10-2025 MAGR Postoperative Record MAGR Phase II Record Summary Primary Physician: KAPIL KILPATRICK DO Finalized Date/Time: 08/16/24 15:59:48 Pt. Name: DERRELL AVITIA Jr/Sex: 1970 MALE Med Rec #: [id number] Physician: KAPIL KILPATRICK DO Financial #: [id number] Pt. Type: D Room/Bed: / Admit/Disch: 08/16/24 09:10:44 - Institution: Phase II Case Times MAGR Pre-Care Text: Patient is free from s/s of injury. Patient remains free from compromised physical state related to surgery or anesthesia. Patient comfort maintained. Patient/family verbalize understanding of discharge instructions. Entry 1 In PACU II 08/16/24 15:12:00 Discharge from PACU 08/16/24 15:57:00 II Last Modified By: Lynne Umaña RN 08/16/24 15:59:46 Post-Care Text: The patient remains free from s/s of injury. Patient's vital signs stable, circulation maintained, return to preop mental and physical status, opsite/dressing intact, minimal or absent nausea and vomiting, tolerates po intake. Patient verbalizes adequate pain control. Patient/family express understanding of discharge instructions. Finalized By: Lynne Umaña RN Document Signatures Signed By: Lynne Umaña RN 08/16/24 15:59 [facility] Preoperative Record MAGR Pre-Op Record Summary Primary Physician: KAPIL KILPATRICK DO Finalized Date/Time: 08/16/24 12:39:02 Pt. Name: DERRELL AVITIA Jr/Sex: 1970 MALE Med Rec #: [id number] Physician: KAPIL KILPATRICK DO Financial #: [id number] Pt. Type: D Room/Bed: / Admit/Disch: 08/16/24 09:10:44 - Institution: Pre-Op Case Times MAGR Pre-Care Text: Patient will be optimally prepared for surgery. Patient is free from s/s of injury. Provide information to patient/family related to plan of care. Verify patient allergies. Confirm identity and verify consent before the operative or invasive procedure. Entry 1 Patient Arrival Time 08/16/24 09:16:00 Preop Departure 08/16/24 12:38:00 Last Modified By: Radha Munson RN 08/16/24 12:38:58 Post-Care Text: Patient is prepared mentally and physically and is ready for surgery. The patient remains free from s/s of injury. Patient/family express understanding of plan of care and participate in decisions affecting his or her perioperrative plan of care. Allergies documented appropriately. Patient identifiers and consent correct. General Comments: Pt arrives to psw ambulatory. PT denies cp, sob, cough or flu like symptoms. PT denies pacemaker/defibillat o, cpap sleep apnea. Finalized By: Radha Munson RN Document Signatures Signed By: Radha Munson RN 08/16/24 12:[address] [facility] POCT Glucose Levelon 025 Glucose [Mass/Vol] 123 mg/dL High 74-118 [facility] Comment on above: Result Comment: OPR_ ID=IN_LIST,TGC FLAG = False,Meter:[id number] Apparel Merchandiser:[id number] Chasidy Batista Performed By: #### [id number] ####[facility] (DEFAULT)[address] [place] [id number] Glucose [Mass/Vol] 144 mg/dL High 74[address] [facility] Comment on above: Result Comment: OPR_ ID=IN_LIST,TGC FLAG = False,Meter:[id number] Apparel Merchandiser:[id number] Arnie Brooks A Performed By: #### 4 [id number] ####[facility] (DEFAULT)[address] [place] [address] Patient Handouton 08-16-2024 Patient Handout Outpatient Shoulder Discharge Instructions 1.) For the next 24 hours, do not drink any alcoholic beverages, drive a motor vehicle, operate machinery or power tools, make any important decisions or sign important papers. 2.) Rest at home with moderate activity as tolerated for at least 24 hours. 3.) You may feel dizzy, lightheaded or sleepy following surgery. Please, have someone with you for the rest of the day and during the night. 4.) You may eat when you prefer, but it is usually best to start with liquids and gradually work up to solid foods. 5.) If you experience persistent nausea or vomiting, pain not controlled with your pain medicine and ice, bleeding that you feel is excessive, swelling or fever, please call Dr. Kilpatrick at [phone]. 6.) Keep dressings in place, clean and dry until 08/20. 7.) On 08/20, remove the dressings, shower and cover the incision with band aids. 8.) Flex and extend elbow 15 times twice a day starting tomorrow. 9.) Use the sling continuously except to bathe. 10.) DO NOT LIFT ARM AWAY FROM SIDE!! 11.) Use Ice as needed to help with pain control. 12.) Proceed immediately to the emergency room for chest pain or shortness of breath 13.) If you have any problems or concerns, please call the office at [phone] or [phone] [facility] Progress Note - Nurseon Progress Note - Nurse pre-op call made t o pt. pt states understanding of arrival time of 0930 on 08/16/24 and NPO after [place]. [Electronically Signed on: 08/13/2024 09:23 EST] Elvis Smith RN [Verified on: 08/13/2024 09:23 EST] Elvis Smith RN [facility] Coding Summaryon 08-03-2024 Coding Summary HTMLBase 64 SrdzqjpuSKw1hKp+PGhl YWQ+JE0UFOXcK70ccILe nN4bO9VRCBmHAtltUTXO KOiZJcGuqpIiST5jkEYh ZXJu IC8+DM0sKYXvHtyvnPAk v2Y7rPU6V54idj6kPHes dMX0OJRmRkLdawruu2yi vId2DOwyLkhaAmUa FOJhtD54QFK0rY21Hh52 qTFtuBSrb1dyqAj8AfAa YBJuRWI4nSqwUDekx8Ll LOXmS86wmGRsi8X2 IGNvbGxhcHNlOyBlbXB0 bS5jVOeqprvil3dneaus Zrg4ar87fPEcy5S0yEJ0 J1YstgD0OLXnjFHm JpvqwWVJcY5mqflwa7jh plmlKeUaMQClJCl3KNr6 JOQnaFwvJcIgWX37SNK4 FIRovpCpX5YcASQl hHwaEkR9q5D6Qp2HD6JJ HzskV1VWXTYYUBdjaMV+ XR12jv23B4JeAtozYzt7 YXKqEMJ4aJP2dY9p GTXsVPsmw5U1wWV2S9Sp grKmtg0tl0ehCITlOXyr I81ecYBzl2J9TITxbRY6 YINvaFzoRsHerA95 Oyc+NQLbqXymy2CqGtsm y8gsp1ymvJi1BgbxNOUy afRnkYhwOPW7y9VvYp0e LAGwgCQ8eOU7aY4a NnAgRcY0BUkgX646DyEy fSLgZmdpE51qM4JfjTM+ QLUlPct5EUQgiTexWK8c H2GbURFeaxmvpUVj hUgtAL2uZLWmxwtyHTKj wG5iRPTtS8f6NqFfWcQ8 GUgbX0BkIVXmnthvCe44 uN7hMaUkPyB6KLlg A6SlakI1RKFocMNxJIif RWP7E98qk1L7GDDzDDLg IKF2iCR0aG2bsWobjkuc bGVmdDsgdmVydGlj HBzvFZepF948BBBjgDpj PkNvZGluZyBEYXRlOiAg MDIvMjUvMjAyNTwvdGQ+ SXQqYDA2xLpkRTAx iLElKJtoZr5gkOwcjGir UR0vULHfshluERMufF7x RFZacILfkPkoFC5mKZQd aljlu228UzDmBNI6 FMZgcLCjI3PlqG2gGzIk RIHrTBNlP9LhdPFqTVta Z694HAncNaM9KIWbfeFb U0EdEACtoFvuNqU4 i0J3Eu7Jx7NjmljeF5Sh wHUfTuGrTovkPCa4H3Hj PjwvdHI+IM11JUOgFL99 FWx9HDD8dQraNSjs EXCsF5UltK2rCyLqVGWf ZGRkOyc+PHRhYmxlIHdp ZHRoPScxMDAlJyBzdHls YI9bQd3iGXEiCHYd eEcacBElGtQwr6vgZMYr UFbfJO7faIanS5AxgGU7 XRMyu6f8Oa88X82iV1Kf dXA+LJYcnEK8qLH5 lJ9vBaWjViM0HYahS888 EwBzqLUbJqzxr4jou8ad mZg5YlJ9MTYzhaRskVmi VAC6t7IkFh31V13c IHdpZHRoPSIxNSUiIHZh qJddpj1zvM7pIn9+PGNv eOX5hKA5zM4qZyEgHkZ5 WQchL758KnHzsAVu Slgrf3hva1xfaTa0UbLl YFBtqdKtyUqrHAU5i9Wp Bs28U0GrqHvgt4ZtVqd0 pt51aLXkv5L2oGM8 O1JpHJJqibmebKEgkGek PC4nYWEbfdwtMJSvnU1d SMKqL5b7MiBzJcB9YRrk L6TcclP2TXLltLXf BMXhhOWEmT3bedoxd1cf mdrgSfYtAPRbQVc7HOk9 QXOhvDpzXcIeSIF8IoF8 VCD8uHVbpO1ohKct cmckxO5nQft+WCO8yMZt jNEYPW4pQdgqwSB+PHRk HVT8mGjdOIjbBQMleF4c MOWdG9c0PlRxBsB8 RQaaZ9PgfqI4XGTfgNIm UZKeyENOrK0npezhv0kp svfnVmTaHACeJNh7IDn4 LWFsaWduOiBsZWZ0 OiL0NNB8hIErvM0aeIuj xihwvV4uVrb+QmlydGgg XOS9GWw6O2VcHah7MIXy wNdxXE6ikAMgAPty Qg6bxAsqeKthZZ6jIZDt mqgxm488CzMvx8jvIGRs rEFkMAyjMZF0F79nm0H1 GANaEPXpIKO2pUG8 fE9sfUicownppNDvsTzk suRsjIulMSwnDOtsO459 EFQczDreFdSeHUw1V0Cn Pwj5LBKdfPnlCC7r hNQxRDmeYw9ohRvdjWzi AO7iWKHwauqod615EzFh q3vqQUQhlCPsKQokIDQ7 D12ri6R8IEKlASTl LSC7lTC2pA8kuCuuhzbk bGVmdDsgdmVydGljYWwt KEtrQ476QBPpoYagQmFn dJf8X3VvClb6XPLo uLvlRF7nrSQrEYxmMq8s wKushRokRK1jFJQisknb m659QuNwf8psVJXqgJCh LJjfJKU4V89qh2M2 ZSDtNOFyIIW6rLR1rN9n bGlnbjogbGVmdDsgdmVy oTcpTXxaQYlhU445EMGc cDsnPlBhdGllbnQg RWwePYk6K0MsNgfqdEJ+ LY12XSFvSZ29tQJudTAx j9egnDt7TcErLGAvCVU0 uRphRNmww5MlLVNn O09aiQRnw7S3REMbmKpc vGSeAgSwbKX8hP4jWOem xzchp9wjwfrqHdkrh9xd vo78iW37I22nJTeg ZHRoPSIzMCUiIHZhbGln ap4jlI3tFc9+PGNvbCB3 wJU6bO4uNTRjUhU8NVrt N398GzZzbVUiYwhr r3dea3slrLk7AxL5VOOc wjMhkPygWMS3h4JjTs27 J56bUPppAMFjPFNqFLTj IGClkTjuqb4rbR4m Ii8+SNOpmQN6oBS1pD7z KjZpAwC1WHizI846GfXv dYPuKllbA76dW4ZlyCP+ AXLgHrn8COBmrKfy DD7rrWNxKPsgPw1jZYV7 RsAoWkWwPMvcN3NwVMVm azvcrafqdAQ2VEUpLSQa eP37Nj2tyPybZORs zSOExJ5yeazes7zcgend AfGnYIJbOGw7TFt6YPGy dLbfAzWzMRJ8NaZ5BZT5 bLFgwI0kkUbvapri tO6vA8VjPYSvlntzKa92 gW3hNoWzYhA6BSuyTpk+ J3WGJEJBcaegCOsGABCF UNCEKA78EE93kUGs i9C5yAM1G4BrWAZerwgp caojpBW6MYVvVHFumT84 pVQfNLecDx0ql1V8v715 RKJrSGVtiH13Lc0a bXxeTENgmOQBaO4wlkve u0ynptdyFqBrTCZvZNt9 TOs9INPwfOsxKuWaOWT5 PcQ6PFY3aMDryX5n nOxueujwqA0zTsi+MDQv QBqgXVy2RNrirJN+PHRk GQG5pIjaPExuLKTluM7r WMOyS6r6UaYzDwU6 UOgoQ4LfFZPknprxZc58 pZ3fRtSmVcR6XQilR0Sj lyD1XVJktKDuRNjdMCN6 Q24zn0P3NSVtJCGp BEL1zRL8yN7xbFdcgptb bGVmdDsgdmVydGljYWwt NKlxM048NIXshTznThG6 WTwnVWWqWT40NT79 yXUgq3B4oWR5J9TyGHTl zmsinpbveLL7WEYoBBEg eG72qJPmBJfvTb4oo7S7 i151PFWdSKQyiX76 Xp5iiTxfWXOmjVYPuS5c asddc9wfelqbStYpHWVn RFa4LVq6OXEzlOxoRmAl NKE9TmG7YCV2fEPz vH5wrKyhvasfnH9qRpn+ TUFMRTwvdGQ+PHRkIHN0 sFzmVQsaMAJtuC0cJCEb N6d7FtZjDtA1WIrv S7OzEKDquwowWk85wR8p MaAxOmQ8KVtfQ4AykuT5 VXIqhJTxCDyhRKD1G13s u8Y0EKChEJXhPWG3 tEB5oW1vcLhyvnjtqHYt dDsgdmVydGljYWwtYWxp R990SDDevMvrIp1COT73 LQ42H7SuXibuqSXj bGU+PHRhYmxlIHdpZHRo ORblLLFcUmBucCjeES2r Cn8wIMGqDCTtiGavuPQd RoRnc9krARUuATpj HP8fkPswM4PqlWM2ESDi v3s9Sy69J97yZ9WtzZZ+ DEDqmXU8rGR5hQ0tQqAr GoF0ZRelK418BrJv nIChXatcz4tvr7uilIn3 IjMwJSIgdmFsaWduPSJ0 b4AxIg93A56iAWfjSCXj PSIyMCUiIHZhbGln jg2kxU2oRf7+PGNvbCB3 mRD8vR8eZpMpEvB4DKoh P598GaAjvQZqVkbiT42f U7DlhWD+PHRyPjx0 ODNbzWoqXQ4pgDBsLYyo Jk1lWJK9KyRyMvSpTHsw C6QvRJAsctgmlacivLF2 YBBqLXWjlB46Eu3j fOffQq9dPPClTVE4SWGx jLHyD0OobQ4bXjKjGYOo OMGgG3GpwOAkQMrlK060 EKziPmA3YKGgscAa F1FkNXQdxIjsAnC3a6X3 Ah8NuIyavKTbEP7eKvIy YJz1J9CgZzf7SQBusBfd QE9vvCHhDDhqVn7c pLcpeDcqDF6lKKRpiigl i745TfMzb9pkDSOddEUb RGcdAHM7H57qh2M5CUHy TIXgNRJ3zVY6nB6f bGlnbjogbGVmdDsgdmVy zEvmWAqoIWbtX495DBCq fAmkZiMMOgu3X2ElLnf3 IYOgiBzoGJ2igGDo COkmHp7ubVtfxRqvOX2i FDXxxucqm882CyNgk1xt UBIbaOEcXScoDLY0T37w m2N5HTWpUTQuQNM1 iEC7iO2yaPtbidwcpJQz dDsgdmVydGljYWwtYWxp F533UIAdgSwyUc3RDgz7 K2DhIbh0CVTjiUle EG6rqAMoSUcnRv4pzGak pBraLA4mBBIwniebu603 XdMbz8skGCMhwHAjYTkc MQX0B67oh5R7QSNh NINcUUX8sSI8hG8ckEbb bjogbGVmdDsgdmVydGlj SKosQJvoQ637BMLyrGpu PlBheWVyOjwvdGQ+ KC11qo75N3EzNfmpLrp5 IHVpZJR3qHM4lL7rJVYq BZxxv4X6cOP7N2DaolUn yx5nv8dxFWSbVQvs Y29 (more content not included)... Normal [facility] .Auto Diff 07-28-2024 Auto [place] % 7 % Normal 06-[address] [facility] Comment on above: Performed By: #### 1 [id number], [id number], [id number] ####[facility] (DEFAULT)[address] [place] [address] 10322 Baso Abs# 0.2 x10 Normal 0.0-0.[address] [facility] Comment on above: Performed By: #### 1 [id number], [id number], [id number] ####[facility] (DEFAULT)[address] [place] [address] 21089 Basophils/100 WBC (Bld) 1.0 % Normal 0.2-2.[address] [facility] Comment on above: Performed By: #### 1 [id number], [id number], [id number] ####[facility] (DEFAULT)[address] [place] [address] 83700 Eos Abs# 0.5 x10 High 0.0-0.[address] [facility] Comment on above: Performed By: #### 1 [id number], 4049073, [id number] ####[facility] (DEFAULT)[address] [place] [address] 23141 Eosinophils/100 WBC (Bld) 5.0 % High 0.9-4.[address] [facility] Comment on above: Performed By: #### 1 [id number], [id number], [id number] ####[facility] (DEFAULT)[address] [place] [address] 27710 Lymph Abs# 2.0 x10 Normal 1.3-2.[address] [facility] Comment on above: Performed By: #### 1 [id number], 5802618, [id number] ####[facility] (DEFAULT)[address] [place] [address] 27797 Lymphocytes/100 WBC (Bld) 19 % Normal 14-[address] [facility] Comment on above: Performed By: #### 1 [id number], 9910379, [id number] ####[facility] (DEFAULT)[address] [place] [address] 63625 [place] Abs# 0.8 x10 Normal 0.0-0.[address] [facility] Comment on above: Performed By: #### 1 [id number], [id number], [id number] ####[facility] (DEFAULT)[address] [place] [address] 04103 Neut Abs# 7.4 x10 Normal 1.5-9.[address] [facility] Comment on above: Performed By: #### 1 [id number], 8831833, [id number] ####[facility] (DEFAULT)[address] [place] [address] Neutrophils/100 WBC (Bld) 68 % Normal 44-[address] [facility] Comment on above: Performed By: #### 1 [id number], [id number], [id number] ####[facility] (DEFAULT)[address] [place] [address] 54704 BMP Standardon 07-28-2024 Anion gap [Moles/Vol] 16.7 mmol/L Normal 5.0-19.0 [facility] Comment on above: Performed By: #### 1 [id number], 8706761, [id number] ####[facility] (DEFAULT)[address] [place] [address] Breakpoint Chem Normal [facility] Comment on above: Performed By: #### 1 [id number], 9094705, [id number] ####[facility] (DEFAULT)[address] [place] [address] 02868 Calcium [Mass/Vol] 9.8 mg/dL Normal 8.9-10.3 [facility] Comment on above: Performed By: #### 1 [id number], 2499014, [id number] ####[facility] (DEFAULT)[address] [place] [address] 55697 Chloride [Moles/Vol] 102 mmol/L Normal 101-111 [facility] Comment on above: Performed By: #### 1 [id number], [id number], [id number] ####[facility] (DEFAULT)[address] [place] [address] CO2 [Moles/Vol] 22 mmol/L Normal 21-[address] [facility] Comment on above: Performed By: #### 1 [id number], 9579675, [id number] ####[facility] (DEFAULT)[address] [place] [address] 82032 Creatinine [Mass/Vol] 0.63 mg/dL Low 0.90-1.30 [facility] Comment on above: Performed By: #### 1 [id number], 6583248, [id number] ####[facility] (DEFAULT)[address] [place] [address] 93556 Glucose [Mass/Vol] 196.0 mg/dL High 74.0-118.0 [facility] Comment on above: Performed By: #### 1 [id number], 2984956, [id number] ####[facility] (DEFAULT)[address] [place] [address] 14334 Osmolality 279 mOsm/L Invalid Interpretation Code [facility] Comment on above: Performed By: #### 1 [id number], 5586442, [id number] ####[facility] (DEFAULT)[address] [place] [address] 78350 Potassium [Moles/Vol] 3.7 mmol/L Normal 3.6-5.1 [facility] Comment on above: Performed By: #### 1 3439265, 1984935, [id number] ####[facility] (DEFAULT)[address] [place] [address] 60583 Sodium [Moles/Vol] 137.0 mmol/L Normal 136.0-144.0 [facility] Comment on above: Performed By: #### 1 [id number], 4179505, [id number] ####[facility] (DEFAULT)[address] [place] [address] 04969 Urea nitrogen [Mass/Vol] 13 mg/dL Normal 8-[address] [facility] Comment on above: Performed By: #### 1 [id number], 8436519, [id number] ####[facility] (DEFAULT)[address] [place] [address] 81574 Urea nitrogen/Creatinine [Mass ratio] 20.6 mg/mg High 4.6-16.[address] [facility] Comment on above: Performed By: #### 1 [id number], 3225198, [id number] ####[facility] (DEFAULT)[address] [place] [address] CBC w/ Auto Diffon Erythrocyte distribution width (RBC) [Ratio] 14.5 % Normal 11.5-15.[address] [facility] Comment on above: Performed By: #### 1 [id number], 6827461, [id number] ####[facility] (DEFAULT)[address] [place] [address] Hematocrit (Bld) [Volume fraction] 47.2 % Normal 34.8-51.[address] [facility] Comment on above: Performed By: #### 1 8971660, 9717248, [id number] ####[facility] (DEFAULT)[address] [place] [address] Hemoglobin (Bld) [Mass/Vol] 16.5 g/dL Normal 11.8-17.[address] [facility] Comment on above: Performed By: #### 1 [id number], 7525604, [id number] ####[facility] (DEFAULT)[address] [place] [address] Man Diff? Auto Normal [facility] Comment on above: Performed By: #### 1 [id number], 1255007, [id number] ####[facility] (DEFAULT)[address] [place] [address] MCH (RBC) [Entitic mass] 28 pg Normal 24-[address] [facility] Comment on above: Performed By: #### 1 8396576, 6166806, [id number] ####[facility] (DEFAULT)[address] [place] [address] MCHC (RBC) [Mass/Vol] 35 g/dL Normal 26-37 [facility] Comment on above: Performed By: #### 1 3244901, 3664963, [id number] ####[facility] (DEFAULT)[address] [place] [address] MCV (RBC) [Entitic vol] 80 fL Low 81-[address] [facility] Comment on above: Performed By: #### 1 [id number], 8809734, [id number] ####[facility] (DEFAULT)[address] [place] [address] Platelet 272 x10 Normal 138-[address] [facility] Comment on above: Performed By: #### 1 5622672, 9313294, [id number] ####[facility] (DEFAULT)[address] [place] [address] Platelet mean volume (Bld) [Entitic vol] 8.6 fL Normal 6.3-10.[address] [facility] Comment on above: Performed By: #### 1 3905109, 4281422, [id number] ####[facility] (DEFAULT)[address] [place] [address] RBC 5.92 x10 High 3.70-5.[address] [facility] Comment on above: Performed By: #### 1 1506853, 6029412, [id number] ####[facility] (DEFAULT)[address] [place] [address] 90987 WBC 10.9 x10 High 3.5-10.[address] [facility] Comment on above: Performed By: #### 1 7596606, 2842520, [id number] ####[facility] (DEFAULT)[address] [place] [address] ECG 12 leadon 07-05-2024 Ventricular Rate : 73 BPM Atrial Rate : 73 BPM P-R Interval : 150 ms QRS Duration : 96 ms Q-T Interval : 398 ms QTC Calculation(Bazett) : 438 ms Calculated P [place] : 10 degrees Calculated R [place]brook : 27 degrees Calculated T [place]brook : 20 degrees NORMAL SINUS RHYTHM NORMAL ECG Confirmed by DIA MACIEL MD ([id number]) on 07/05/2024 11:08:50 PM NAME : DERRELL AVITIA PID : [id number] : 1970 Gender : Male Race : ORD : [id number] Procedure Date : Jun 16 2024 10:38:31 Edit Date : Jul 05 2024 23:08:53 Diagnosis: NORMAL SINUS RHYTHM NORMAL ECG Confirmed by DIA MACIEL MD ([id number]) on 07/05/2024 11:08:50 PM Test Reason : Location : [facility] : [facility] Overread By : DIA MACIEL MD Edited By : DIA MACIEL MD Referred By : WILLIAM HOWELL Acquired by : Clare Ortiz [facility] Radiology, Radiologist, - 07/05/2024 Ventricular Rate : 73 BPM Atrial Rate : 73 BPM P-R Interval : 150 ms QRS Duration : 96 ms Q-T Interval : 398 ms QTC Calculation(Bazett) : 438 ms Calculated P [place] : 10 degrees Calculated R [place]brook : 27 degrees Calculated T [place]brook : 20 degrees NORMAL SINUS RHYTHM NORMAL ECG Confirmed by DIA MACIEL MD ([id number]) on 07/05/2024 11:08:50 PM NAME : DERRELL AVITIA PID : [id number] : 1970 Gender : Male Race : ORD : [id number] Procedure Date : Jun 16 2024 10:38:31 Edit Date : Jul 05 2024 23:08:53 Diagnosis: NORMAL SINUS RHYTHM NORMAL ECG Confirmed by DIA MACIEL MD ([id number]) on 07/05/2024 11:08:50 PM Test Reason : Location : 117 : [facility] Overread By : DIA MACIEL MD Edited By : DIA MACIEL MD Referred By : WILLIAM HOWELL Acquired by : Clare Ortiz [facility] ECG 12 leadOrdered By: Radio logist Radiology on 07-05-2024 [facility] Work Phone: [facility] CBC W AUTO DIFF BLDon Basophils/100 WBC (Bld) 0.8 % [facility] BASOPHILS # BLD AUTO 0.09 [facility] DIFFERENTIAL METHOD BLD Auto [facility] EOSINOPHIL # BLD AUTO 0.62 High [facility] LYMPHOCYTES # BLD AUTO 1.97 [facility] MONOCYTES # BLD AUTO 0.77 [facility] NEUTROPHILS # BLD AUTO 7.39 [facility] NRBC # BLD AUTO <0.01 [facility] NRBC/100 WBC BLD-RTO 0 /100 WBC [facility] PLATELET # BLD AUTO 308 [facility] PMV BLD AUTO 9.5 fL 9.0 - 12.7 fL [facility] WBC # BLD AUTO 10.92 [facility] Eosinophils/100 WBC (Bld) 5.7 % [facility] Erythrocyte distribution width (RBC) [Ratio] 14 % 11.5 - 15.0 % [facility] Hematocrit (Bld) [Volume fraction] 46 % 39.0 - 51.0 % [facility] Hemoglobin (Bld) [Mass/Vol] 15.7 g/dL 13.0 - 17.0 g/dL [facility] IMM GRANULOCYTES # BLD AUTO 0.08 NINF [facility] IMM GRANULOCYTES/LEUK NFR BLD AUTO 0.7 % [facility] Interpretation and review of laboratory results Abnormal [facility] Lymphocytes/100 WBC (Bld) 18 % [facility] MCH (RBC) [Entitic mass] 26.9 pg 26.0 - 34.0 pg [facility] MCHC (RBC) [Mass/Vol] 34.1 g/dL 30.5 - 36.0 g/dL [facility] MCV (RBC) [Entitic vol] 78.8 fL Low 80.0 - 100.0 fL [facility] Monocytes/100 WBC (Bld) 7.1 % [facility] Neutrophils/100 WBC (Bld) 67.7 % [facility] RBC (Bld) [#/Vol] 5.84 10*6/uL 4.20 - 6.0 0 m/uL [facility] Specimen Type: BLOOD SPECIMEN Ordering Facility: [facility] Address: [address] [place] [address] Original Ordering Provider: WILLIAM MURRAY [facility] MR shoulder LT wo conon 12- MR shoulder LT wo con [facility] [place] [address] MRI Report Signed Patient: Derrell Avitia JR MR#: [id number] : 1970 Acct:[id number] Age/Sex: 53 / M ADM Date: 05/26/24 Loc: [facility] Room: Type: [facility] Attending Dr: Justina OROZCO Copies to: ERNESTO [...] Lucero Jr., D.OSixto05/26/2024 10:59 AM Dictation Location: [place] [address] Transcribed By: [facility] 05/26/24 1059 Dictated By: Raheem Lucero Jr, DO 05/26/24 1042 Signed By: 05/26/24 1059 Normal [facility] XR pre/post mri xrayon 05-26 XR pre/post mri xray [facility] [place] [address] XRay Report Signed Patient: Derrell Avitia JR MR#: [id number] : 1970 Acct:[id number] Age/Sex: 53 / M ADM Date: 05/26/24 Loc: [facility] Room: Type: [facility] Attending Dr: Justina OROZCO Copies to: ERNESTO [...] Lucero Jr., D.O.05/26/2024 3:01 PM Dictation Location: [place] [address] Transcribed By: [facility] 05/26/24 1501 Dictated By: Raheem Lucero Jr, DO 05/26/24 1500 Signed By: 05/26/24 1501 Normal [facility] XR KNEE RT 3 VWSon 4 XR KNEE RT 3 VWS XR KNEE RT 3 VWS History: Fall, knee pain Exam: Right knee 3 views Comparison: None Findings: No fracture or dislocation. No osseous destruction or knee effusion. Moderate tricompartmental osteoarthritis. Impression: No acute fracture. Finalized by Shanel Contreras MD on 05/19/2024 10:02 AM Normal [facility] XR SHOULDER LT MIN 2 VWSon 1 [...] IMPRESSION: No acute osseous abnormality. Finalized by Александр Peter MD on 05/19/2024 10:00 AM Normal [facility] COMP METAB 2000 PNL SERP Prabhjot 04-07-2024 Albumin [Mass/Vol] 4.6 g/dL 3.9 - 4.9 g/dL NO [facility] ALP [Catalytic activity/Vol] 324 U/L High 38 - 113 U/L [facility] ALT [Catalytic activity/Vol] 98 U/L High 10 - 54 U/L [facility] Anion gap [Moles/Vol] 15 mmol/L 8 - 15 mmol/L [facility] Calcium [Mass/Vol] 10 mg/dL 8.5 - 10. 2 mg/dL [facility] AST SERPL-CCNC 58 U/L High 14 - 40 U/L [facility] BILIRUB SERPL-MCNC 0.4 mg/dL 0.2 - 1.3 mg/dL [facility] PROT SERPL-MCNC 9.1 g/dL High 6.3 - 8.0 g/dL N [facility] Chloride [Moles/Vol] 101 mmol/L 98 - 10 7 mmol/L [facility] CO2 [Moles/Vol] 20 mmol/L Low 22 - 30 mmol/L [facility] Creatinine [Mass/Vol] 0.73 mg/dL 0.73 - 1.22 mg/dL [facility] GFR/1.73 sq M.predicted CKD-EPI (S/P/Bld) [Vol rate/Area] 107 - PINF [facility] Comment on above: Estimated Glomerular Filtration Rate [...] 224 mg/dL High 74 - 99 mg/dL [facility] Comment on above: The [place] Diabete s Association (ADA) provides guidance for [...] Standards of Medical Care in Diabetes 2016, [place] Diabetes Association. Diabetes Care. 2016.39(Suppl 1). Interpretation and review of laboratory results Abnormal [facility] Potassium [Moles/Vol] 4.7 mmol/L 3.7 - 5.1 mmol/L [facility] Sodium [Moles/Vol] 136 mmol/L 136 - 144 mmol/L [facility] Urea nitrogen [Mass/Vol] 19 mg/dL 9 - 24 mg/dL [facility] Specimen Type: BLOOD SPECIMEN Ordering Facility: [facility] Address: [address] [place] [address] Original Ordering Provider: WILLIAM MURRAY [facility] FLOW CYTOMETRY FOR LEUKE EZEQUIEL/LYMPHOMA (FCLL) PERFORMABLEon 03-19-2024 [facility] FLOW CYTOMETRY ORDER STATUS Results will be reported under F case ID when completed [facility] Specimen Type: BONE MARROW SPECIMEN Ordering Facility: [facility] Address: [address] [place] [address] Original Ordering Provider: WILLIAM MURRAY FLOW CYTOMETRY FOR LEUKEMIA/ LYMPHOMA (FCLL) PERFORMABLEOrdered By: Marjorie Hopper on 03-19-2024 Flow Cytometry Order Status Results will be reported under F case ID when completed [facility] GLUCOSE, BLOOD (POC)on 03-19 Glucose [Mass/Vol] 143 mg/dL Abnormal 74 - 99 mg/dL [facility] Comment on above: Location:[facility], [address] [place] [address], [facility] The Accu-Chek Inform II glucose meter [...] Interpretation and review of laboratory results Abnormal [facility] No Panel Informationon 03-19 [facility] CBC W AUTO DIFF BLDon Basophils/100 WBC (Bld) 1.0 % [facility] BASOPHILS # BLD AUTO 0.11 High [facility] DIFFERENTIAL METHOD BLD Auto [facility] EOSINOPHIL # BLD AUTO 0.64 High [facility] LYMPHOCYTES # BLD AUTO 2.54 [facility] MONOCYTES # BLD AUTO 0.76 [facility] NEUTROPHILS # BLD AUTO 6.35 [facility] NRBC # BLD AUTO <0.01 [facility] NRBC/100 WBC BLD-RTO 0.0 /100 WBC [facility] PLATELET # BLD AUTO 283 [facility] PMV BLD AUTO 9.9 fL 9.0 - 12.7 fL [facility] WBC # BLD AUTO 10.51 [facility] Eosinophils/100 WBC (Bld) 6.1 % [facility] Erythrocyte distribution width (RBC) [Ratio] 14.9 % 11.5 - 15.0 % [facility] Hematocrit (Bld) [Volume fraction] 49.4 % 39.0 - 51.0 % [facility] Hemoglobin (Bld) [Mass/Vol] 16.6 g/dL 13.0 - 17.0 g/dL [facility] IMM GRANULOCYTES # BLD AUTO 0.11 High [facility] IMM GRANULOCYTES/LEUK NFR BLD AUTO 1.0 % [facility] Interpretation and review of laboratory results Abnormal [facility] Lymphocytes/100 WBC (Bld) 24.2 % [facility] MCH (RBC) [Entitic mass] 27.0 pg 26.0 - 34.0 pg [facility] MCHC (RBC) [Mass/Vol] 33.6 g/dL 30.5 - 36.0 g/dL [facility] MCV (RBC) [Entitic vol] 80.5 fL 80.0 - 100.0 fL [facility] Monocytes/100 WBC (Bld) 7.2 % [facility] Neutrophils/100 WBC (Bld) 60.5 % [facility] RBC (Bld) [#/Vol] 6.14 10*6/uL High 4.20 - 6.0 0 m/uL [facility] Specimen Type: BLOOD SPECIMEN Ordering Facility: [facility] Address: [address] [place] [address] Original Ordering Provider: WILLIAM MURRAY [facility] EMG 1 Extremeityon 4 Carpal tunnel, right, mild Ulnar neuropathy, right, mild, 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, non localizable [facility] NVC 7-8 Nerveson 02-26-2024 Carpal tunnel, right, mild Ulnar neuropathy, right, mild, 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, non localizable [facility] ECG COMPLETEon 01-22-2024 Atrial Rate 57 BPM [facility] Calculated P Holbrook 8 degrees [facility] Calculated R Holbrook 20 degrees [facility] Calculated T [place]brook 13 degrees [facility] P-R Interval 140 ms [facility] QRS Duration 90 ms [facility] QT Interval 414 ms [facility] QTC Calculation (Bazett) 402 ms [facility] Ventricular Rate 57 BPM [facility] NAME : DERRELL AVITIA PID : [id number] : 1970 Gender : Male Race : [...] Rate 56 BPM [facility] Calculated P [place] 47 degrees [facility] Calculated R [place] 21 degrees [facility] Calculated T [place] 14 degrees [facility] P-R Interval 148 ms [facility] QRS Duration 84 ms [facility] QT Interval 410 ms [facility] QTC Calculation (Bazett) 395 ms [facility] Ventricular Rate 56 BPM [facility] NAME : DERRELL AVITIA PID : [id number] : 1970 Gender : Male Race : [...] : william howell Acquired by : [facility] Atrial Rate 57 BPM [facility] Calculated P Holbrook 3 degrees [facility] Calculated R Hol[place] 25 degrees [facility] Calculated T Holbrook 15 degrees [facility] P-R Interval 140 ms [facility] QRS Duration 92 ms [facility] QT Interval 416 ms [facility] QTC Calculation ([place]) 404 ms [facility] Ventricular Rate 57 BPM [facility] SINUS BRADYCARDIA MINIMAL VOLTAGE CRITERIA FOR LVH, MAY BE NORMAL VARIANT BORDERLINE ECG Confirmed by AMARILIS MIRANDA M.D. (Dejan) on 01/22/2024 6:22:30 PM [facility] [place] NAME : DERRELL AVITIA PID : [id number] : 1970 Gender : Male Race : ORD : Procedure Date : Dec 24 2023 10:22:46 Edit Date : Jan 22 2024 18:26:51 Diagnosis: SINUS BRADYCARDIA MINIMAL VOLTAGE CRITERIA FOR LVH, MAY BE NORMAL VARIANT BORDERLINE ECG Confirmed by AMARILIS MIRANDA M.D. (Dejan) on 01/22/2024 6:22:30 PM Test Reason : Location : 117 : CA2RE Overread By : AMARILIS MIRANDA M.D. Edited By : AMARILIS MIRANDA M.D. Referred By : william howell [facility] No Panel Informationon 01-21 SINUS BRADYCARDIA MINIMAL VOLTAGE CRITERIA FOR LVH, MAY BE NORMAL VARIANT BORDERLINE ECG Confirmed by AMARILIS MIRANDA M.D. (Dejan) on 01/22/2024 6:22:[address] [facility] HIV Screen ([facility])on HIV Screen ([facility]) Non-Reactive Normal Nonreactive [facility] Comment on above: Order Comment: Which is this, the Source or the Person with the Exposure?: EXPOSURE Source Medical Record: UNK Exposed Result Comment: PERF ORMED BY: [address] [place] [address] PATHOLOGIST [employer]IST[employer] JIANLAN SUN M.D. Performed By: #### H IV12 #### [place] [address] [place] #### HBSAG, HCV RX PCR, HBSAB #### [facility] , HIV Screen ChemBioOrdered By : Kapil Kilpatrick on 12-09-2023 HIV 1+2 IgG IA.rapid Ql (Bld) Non-Reactive Nonreactive [facility] Hep C Ab wRfx to Qnt PCRon 0 12-09-2023 Hepatitis C Virus Antibody Non-Reactive Normal Non Reactive [facility] Comment on above: Order Comment: Which is this, the Source or the Person with the Exposure?: EXPOSURE Source Medical Record: UNK Exposed Performed By: #### H IV12 #### [address] #### HBSAG, HCV RX PCR, HBSAB #### [facility] , Interpretation Hepatitis C Normal . [facility] Comment on above: Order Comment: Which is this, the Source or the Person with the Exposure?: EXPOSURE Source Medical Record: UNK Exposed Result Comment: Not infected with HCV unless early or acute infection is suspected (which may be delayed in an immunocompromised individual), or other evidence exists to indicate HCV infection. Performed By: #### H IV12 #### [address] #### HBSAG, HCV RX PCR, HBSAB #### [facility] , Hepatitis B Surface Antibody on 12-09-2023 Hepatitis B Surface Antibody Non-Reactive Normal . [facility] Comment on above: Order Comment: Which is this, the Source or the Person with the Exposure?: EXPOSURE Source Medical Record: UNK Exposed Result Comment: Non Reactive: Inconsistent with immunity, less than 10 mIU/mL Reactive: Consistent with immunity, greater than 9.9 mIU/mL Performed By: #### H IV12 #### [place] [address] [place] #### HBSAG, HCV RX PCR, HBSAB #### [facility] , Hepatitis B Surface Antigeno n 12-09-2023 HBsAg Screen Negative Normal Negative [facility] Comment on above: Order Comment: Which is this, the Source or the Person with the Exposure?: EXPOSURE Source Medical Record: UNK Exposed Result Comment: Perf ormed at: - [facility] [address] [id number] Santa'S Helper: Macho Guillen PhD, Phone: [phone] PERFORMED BY: [place] [address] PATHOLOGIST LIAISON INSPECTION LABORATORY ASSISTANT ADITHYA JONES M.D. Performed By: #### H IV12 #### [place] [address] [place] #### HBSAG, HCV RX PCR, HBSAB #### [facility] , BASIC METABOLIC PANLon 12-01 Anion gap [Moles/Vol] 9 mmol/L Normal 5-15 [facility] Comment on above: Performed By: #### C BCA, PINR, BMP #### [facility] ([id number]) [address] [place] [address] Calcium [Mass/Vol] 9.8 mg/dL Normal 8.5-10.5 [facility] Comment on above: Performed By: #### C BCA, PINR, BMP #### [facility] ([id number]) [address] [place] [address] Chloride [Moles/Vol] 99 mmol/L Normal 98-109 [facility] Comment on above: Performed By: #### C BCA, PINR, BMP #### [facility] ([id number]) [address] [place] [address] CO2 [Moles/Vol] 27 mmol/L Normal 22-32 [facility] Comment on above: Performed By: #### C BCA, PINR, BMP #### [facility] ([id number]) [address] [place] [address] Creatinine [Mass/Vol] 0.65 mg/dL Normal 0.60-1.30 [facility] Comment on above: Result Comment: METH OD TRACEABLE TO IDMS STANDARD Performed By: #### C WILLI PINR, BMP #### [facility] ([id number]) [address] [facility] [address] [place] [address] eGFR (CKD-EPI) NON-RACE DEPENDENT >90 Normal >59 [facility] Comment on above: Result Comment: Reported eGFR is based on the CKD-EPI 2020 equation that does not use a race coefficient. Performed By: #### C WILLI PINR, BMP #### [facility] ([id number]) [address] [place] [address] Glucose [Mass/Vol] 178 mg/dL High 65-99 [facility] Comment on above: Performed By: #### C BCA, PINR, BMP #### [facility] ([id number]) [address] [address] [place] [address] Potassium [Moles/Vol] 4.4 mmol/L Normal 3.5-5.0 [facility] Comment on above: Performed By: #### C BCA, PINR, BMP #### [facility] ([id number]) [address] [address] [place] [address] Sodium [Moles/Vol] 135 mmol/L Normal 134-146 [facility] Comment on above: Performed By: #### C BCA, PINR, BMP #### [facility] ([id number]) [address] [address] [place] [address] Urea nitrogen [Mass/Vol] 13 mg/dL Normal 5-23 [facility] Comment on above: Performed By: #### C BCA, PINR, BMP #### [facility] ([id number]) [address] [place] [address] CBC AND AUTO DIFFon 12-01- 24 ABSOLUTE BASOPHIL 0.1 X10E9/L Normal 0.0-0.2 [facility] Comment on above: Performed By: #### C WILLI PINR, BMP #### [facility] ([id number]) [address] [place] [address] ABSOLUTE NEUTROPHIL 8.2 X10E9/L High 1.5-6.6 [facility] Comment on above: Performed By: #### C WILLI PINR, BMP #### [facility] ([id number]) [address] [facility] [address] [place] [address] Basophils/100 WBC (Bld) 0.8 % Normal [facility] Comment on above: Performed By: #### Aracelis MÁRQUEZ PINR, BMP #### [facility] ([id number]) [address] [place] [address] Eosinophils (Bld) [#/Vol] 0.6 10*3/uL High 0.0-0.4 [facility] Comment on above: Performed By: #### Aracelis MÁRQUEZ PINR, BMP #### [facility] ([id number]) [address] [place] [address] Eosinophils/100 WBC (Bld) 4.7 % Normal [facility] Comment on above: Performed By: #### Aracelis MÁRQUEZ PINR, BMP #### [facility] ([id number]) [address] [place] [address] Erythrocyte distribution width (RBC) [Ratio] 14.3 % Normal 11.5-15.0 [facility] Comment on above: Performed By: #### Aracelis MÁRQUEZ PINR, BMP #### [facility] ([id number]) [address] [place] [address] Hematocrit (Bld) [Volume fraction] 46.4 % Normal 39-49 [facility] Comment on above: Performed By: #### C SEAN MÁRQUEZ, BMP #### [facility] ([id number]) [address] [place] [address] Hemoglobin (Bld) [Mass/Vol] 15.9 g/dL Normal 13.0-17.0 [facility] Comment on above: Performed By: #### C WILLI PINR, BMP #### [facility] ([id number]) [address] [facility] [address] [place] [address] Lymphocytes (Bld) [#/Vol] 2.8 10*3/uL Normal 1.0-3.5 [facility] Comment on above: Performed By: #### C WILLI PINR, BMP #### [facility] ([id number]) [address] [facility] [address] [place] [address] Lymphocytes/100 WBC (Bld) 22.3 % Normal [facility] Comment on above: Performed By: #### C SEAN MÁRQUEZ, BMP #### [facility] ([id number]) [address] [place] [address] MCH (RBC) [Entitic mass] 27.0 pg Normal 27-34 [facility] Comment on above: Performed By: #### C WILLI PINR, BMP #### [facility] ([id number]) [address] [place] [address] MCHC (RBC) [Mass/Vol] 34.3 g/dL Normal 32-36 [facility] Comment on above: Performed By: #### C WILLI PINR, BMP #### [facility] ([id number]) [address] [address] [place] [address] MCV (RBC) [Entitic vol] 79 fL Low 80-100 [facility] Comment on above: Performed By: #### C WILLI PINR, BMP #### [facility] ([id number]) [address] [place] [address] Monocytes (Bld) [#/Vol] 0.9 10*3/uL Normal 0-0.9 [facility] Comment on above: Performed By: #### C BCA, PINR, BMP #### [facility] ([id number]) [address] [place] [address] Monocytes/100 WBC (Bld) 6.9 % Normal [facility] Comment on above: Performed By: #### C WILLI, PINR, BMP #### [facility] ([id number]) [address] [place] [address] Neutrophils/100 WBC (Bld) 65.3 % Normal [facility] Comment on above: Performed By: #### C WILLI, PINR, BMP #### [facility] ([id number]) [address] [place] [address] Platelet mean volume (Bld) [Entitic vol] 8.8 fL Normal 7-12 [facility] Comment on above: Performed By: #### C BCA, PINR, BMP #### [facility] ([id number]) [address] [place] [address] Platelets (Bld) [#/Vol] 303 10*3/uL Normal 150-450 [facility] Comment on above: Performed By: #### C BCA, PINR, BMP #### [facility] ([id number]) [address] [place] [address] RBC COUNT 5.89 X10E12/L High 4.10-5.70 [facility] Comment on above: Performed By: #### C BCA, PINR, BMP #### [facility] ([id number]) [address] [place] [address] WBC (Bld) [#/Vol] 12.5 10*3/uL High 4.0-11.0 [facility] Comment on above: Performed By: #### SEAN Hsu BCA, BMP #### [facility] ([id number]) [address] [place] [address] PROTIME AND INRon 12-02-2023 INR Coag (PPP) [Relative time] 1.0 {INR} Normal 0.8-1.1 [facility] Comment on above: Performed By: #### SEAN Hsu BCA, BMP #### [facility] ([id number]) [address] [place] [address] PT Coag (PPP) [Time] 11.6 s Normal 9.8-13.2 [facility] Comment on above: Performed By: #### SEAN Hsu BCA, BMP #### [facility] ([id number]) [address] [place] [address] MR CARDIAC FOR MORPH W WO CO [...] Mora MD on 08/08/2023 4:15 PM Normal [facility] MR CARDIAC VELOCITY OTILIO VICTORINO [facility] 08-08-2023 MR CARDIAC VELOCITY OTILIO MAPPING [...] Mora MD on 08/08/2023 4:15 PM Normal [facility] XR EYE FOREIGN BODY LOCALIZA TIONon 07-31-2023 [...] Jaime MD on 07/31/2023 11:02 AM Normal [facility] XR Shoulder - right 4 Viewso n 06-15-2023 IMPRESSION: Moderate glenohumeral and acromioclavicular joint degenerative changes with joint space narrowing and osteophytes. No acute fracture or dislocation. Subacromial space is maintained. No other significant abnormality. Tar Processing Technician: PSCB Transcribe Date/Time: Jun 15 2023 10:32P Dictated by : EZRA KANG MD This examination was interpreted and the report reviewed and electronically signed by: EZRA KANG MD on Jun 15 2023 10:33PM [facility] DIVISION OF RADIOLOGY * * *Final Report* [...] COMPARISON: None RESULT/ DIVISION OF RADIOLOGY Provider, [facility] [place] - 06/15/2023 * * *Final Report* * [...] space is maintained. No other significant abnormality. Tar Processing Technician: CHLOE Transcribe Date/Time: Jun 15 2023 10:32P Dictated by : EZRA KANG MD This examination was interpreted and the report reviewed and electronically signed by: EZRA KANG MD on Jun 15 2023 10:33PM EST [facility] XR Shoulder - right 4 ViewsO rdered By: [facility] Provider on 06-15-2023 [facility] XR Shoulder - right 4 Viewso n 06-13-2023 Radiology Study observation (narrative) [facility] CBC W Auto Differential pane l (Bld)on 04-18-2023 Basophils (Bld) [#/Vol] 0.08 10*3/uL <0.11 k/uL [facility] Basophils/100 WBC (Bld) 0.6 % [facility] Differential cell count method Nom (Bld) Auto [facility] Eosinophils (Bld) [#/Vol] 0.60 10*3/uL High <0.46 k/uL [facility] Eosinophils/100 WBC (Bld) 4.7 % [facility] Erythrocyte distribution width (RBC) [Ratio] 14.3 % 11.5 - 15.0 % [facility] Hematocrit (Bld) [Volume fraction] 47.6 % 39.0 - 51.0 % [facility] Hemoglobin (Bld) [Mass/Vol] 16.0 g/dL 13.0 - 17.0 g/dL [facility] Immature granulocytes (Bld) [#/Vol] 0.09 10*3/uL <0.10 k/uL [facility] Immature granulocytes/100 WBC (Bld) 0.7 % [facility] Lymphocytes (Bld) [#/Vol] 3.23 10*3/uL 1.00 - 4.00 k/uL [facility] Lymphocytes/100 WBC (Bld) 25.3 % [facility] MCH (RBC) [Entitic mass] 26.7 pg 26.0 - 34.0 pg [facility] MCHC (RBC) [Mass/Vol] 33.6 g/dL 30.5 - 36.0 g/dL [facility] MCV (RBC) [Entitic vol] 79.3 fL Low 80.0 - 100.0 fL [facility] Monocytes (Bld) [#/Vol] 0.86 10*3/uL <0.87 k/uL [facility] Monocytes/100 WBC (Bld) 6.7 % [facility] Neutrophils (Bld) [#/Vol] 7.89 10*3/uL High 1.45 - 7.50 k/uL [facility] Neutrophils/100 WBC (Bld) 62.0 % [facility] Nucleated RBC (Bld) [#/Vol] <0.01 k/uL [facility] Nucleated RBC/100 WBC (Bld) [Ratio] 0.0 /100 WBC [facility] Platelet mean volume (Bld) [Entitic vol] 10.2 fL 9.0 - 12.7 fL [facility] Platelets (Bld) [#/Vol] 275 10*3/uL 150 - 400 k/uL [facility] RBC (Bld) [#/Vol] 6.00 10*6/uL 4.20 - 6.0 0 m/uL [facility] WBC (Bld) [#/Vol] 12.75 10*3/uL High 3.70 - 11 .00 k/uL [facility] ECHOon 04-16-2023 [facility] Office Visiton 10-16-2022 Follow-up visit [id number] Derrell Avitia 1970 M Date Provider Department Center 10/16/2022 COSTAHERBHENRIQUE ANGUS MP ORTHO MPORTHO No family history on file Level of Service:64893 [place] OFFICE/OUTPATIENT NEW LOW MDM 30-44 MINUTES (GC) Reason for Visit and Comments: Pain [136] Normal [facility] HEMOGLOBIN A1C (POC)on 10-15 HbA1c (Bld) [Mass fraction] 8.5 % Abnormal 4.2 - 5.6 % [facility] CBC AUTO DIFFon 08-06-2022 BASO # 0.1 103/ul Normal 0.0-0.1 [facility] Comment on above: Performed By: #### C BC #### [facility] [address] [place] [address] Dr. Yinka Flores Basophils/100 WBC (Bld) 0.8 % Normal 0.2-2.0 [facility] Comment on above: Performed By: #### C BC #### [facility] [address] [place] [address] Dr. Yinka Flores EO # 0.5 103/ul Normal 0.0-0.7 [facility] Comment on above: Performed By: #### C BC #### [facility] [address] [address] [address] Yinka Flores Eosinophils/100 WBC (Bld) 4.5 % Normal 0.9-7.0 [facility] Comment on above: Performed By: #### C BC #### [facility] [address] [address] [address] Yinka Flores Erythrocyte distribution width (RBC) [Ratio] 14.4 % Normal 11.0-15.0 [facility] Comment on above: Performed By: #### C BC #### [facility] [address] [place] [address] Dr. Yinka Flores Hematocrit (Bld) [Volume fraction] 43.6 % Normal 42.0-54.0 [facility] Comment on above: Performed By: #### C BC #### [facility] [address] [place] [address] Dr. Yinka Flores Hemoglobin (Bld) [Mass/Vol] 14.7 g/dL Normal 14.0-18.0 [facility] Comment on above: Performed By: #### C BC #### [facility] [address] [place] [address] Dr. Yinka Flores IG # 0.06 10e3/ul Critically high 0.00-0.03 [facility] Comment on above: Performed By: #### C BC #### [facility] [address] [place] [address] Dr. Yinka Flores IG % 0.5 % Normal 0.0-0.5 [facility] Comment on above: Performed By: #### C BC #### [facility] [address] [place] [address] Dr. Yinka Flores LYMPH # 3.3 103/ul Normal 1.2-3.8 [facility] Comment on above: Performed By: #### C BC #### [facility] [address] [place] [address] Dr. Yinka Flores Lymphocytes/100 WBC (Bld) 27.8 % Normal 20.5-60.0 [facility] Comment on above: Performed By: #### C BC #### [facility] [address] [place] [address] Dr. Yinka Flores MANUAL DIFF REQ NO Normal [facility] Comment on above: Performed By: #### C BC #### [facility] [address] [place] [address] Dr. Yinka Flores MCH (RBC) [Entitic mass] 26.1 pg Normal 25.9-34.0 [facility] Comment on above: Performed By: #### C BC #### [facility] [address] [place] [address] Dr. Yinka Flores MCHC (RBC) [Mass/Vol] 33.7 g/dL Normal 29.9-35.2 [facility] Comment on above: Performed By: #### C BC #### [facility] [id number] Yinka Flores MCV (RBC) [Entitic vol] 77.3 fL Critically low 80.0-94.0 [facility] Comment on above: Performed By: #### C BC #### [facility] [address] [address] [address] Yinka Flores MONO # 0.8 103/ul Normal 0.3-0.8 [facility] Comment on above: Performed By: #### C BC #### [facility] [address] [address] [address] Yinka Flores Monocytes/100 WBC (Bld) 6.6 % Normal 1.7-12.0 [facility] Comment on above: Performed By: #### C BC #### [facility] [address] [address] [address] Yinka Flores NEUT # 7.1 103/ul Critically high 1.4-6.5 [facility] Comment on above: Performed By: #### C BC #### [facility] [id number] Yinka Flores Neutrophils/100 WBC (Bld) 59.8 % Normal 43.0-75.0 [facility] Comment on above: Performed By: #### C BC #### [facility] [address] [address] [address] Yinka Flores Platelet mean volume (Bld) [Entitic vol] 9.5 fL Normal 9.5-13.5 [facility] Comment on above: Performed By: #### C BC #### [facility] [address] [address] [address] Yinka Flores PLT 257 103/ul Normal 150-450 [facility] Comment on above: Performed By: #### C BC #### [facility] [id number] Yinka Flores RBC 5.64 106/ul Normal 4.70-6.10 [facility] Comment on above: Performed By: #### C BC #### [facility] [address] [address] [address] Yinka Flores WBC 11.9 103/ul Critically high 4.0-11.0 [facility] Comment on above: Performed By: #### C BC #### [facility] [address] [address] [address] Yinka Flores GLYCOHEMOGLOBIN A1Con 2022 ADA RECOMMENDATION SEE BELOW Normal [facility] Comment on above: Result Comment: ADA RECOMMENDED LIMIT 4.0 - 6.0 ADA THERAPEUTIC TARGET < 7.0 ACTION SUGGESTED > 7.0 Performed By: #### A 1C #### [facility] [address] [address] [address] Yinka Flores Glucose [Mass/Vol] 189 mg/dL Normal [facility] Comment on above: Performed By: #### A 1C #### [facility] [address] [address] [address] Yinka Flores HbA1c (Bld) [Mass fraction] 8.2 % Critically high 4.5-6.2 [facility] Comment on above: Performed By: #### A 1C #### [facility] [address] [address] [address] Yinka Flores LIPID PROFILEon 08-06-2022 CHOL-HDL RATIO NORM SEE BELOW Normal [facility] Comment on above: Result Comment: 3.3 - 4.4 LOW RISK 4.4 - 7.1 AVERAGE RISK 7.1 - 11.0 MODERATE RISK >11.0 HIGH RISK Performed By: #### L IPID, CMP #### [facility] [address] [address] [address] Yinka Flores Cholesterol [Mass/Vol] 251 mg/dL Critically high <=200 [facility] Comment on above: Performed By: #### L IPID, CMP #### [facility] [address] [address] [address] Yinka Flores Cholesterol in HDL [Mass/Vol] 34 mg/dL Critically low 40-60 [facility] Comment on above: Performed By: #### L IPID, CMP #### [facility] [address] [address] [address] Yinka Flores Cholesterol in LDL [Mass/Vol] 172.4 mg/dL Normal [facility] Comment on above: Performed By: #### L IPID, CMP #### [facility] [address] [address] [address] Yinka Flores Cholesterol.total/Cho lesterol in HDL [Mass ratio] 7.4 {ratio} Normal [facility] Comment on above: Performed By: #### L IPID, CMP #### [facility] [address] [address] [address] Yinka Flores HDL NORMAL > or = 60 mg/dl - LOW CARDIOVASCULAR RISK <40 mg/dl - HIGH CARDIOVASCULAR RISK Normal [facility] Comment on above: Performed By: #### L IPID, CMP #### [facility] [address] [address] [address] Yinka Flores LDL CALC NORMAL SEE BELOW Normal [facility] Comment on above: Result Comment: <100 mg/dl OPTIMAL 100 - 129 mg/dl NEAR OR ABOVE OPTIMAL 130 - 159 mg/dl BORDERLINE HIGH 160 - 189 mg/dl HIGH >190 mg/dl VERY HIGH Performed By: #### L IPID, CMP #### [facility] [address] [place] [address] Dr. Yinka Flores Triglyceride [Mass/Vol] 223 mg/dL Critically high <=150 [facility] Comment on above: Performed By: #### L IPID, CMP #### [facility] [address] [address] [address] Yinka Flores VLDL CALC 44.6 mg/dL Normal [facility] Comment on above: Performed By: #### L IPID, CMP #### [facility] [address] [address] [address] Yinka Flores MICROALBUMIN, RAND URon 07-11 mALB 2.0 mg/L Normal <=30.0 [facility] Comment on above: Performed By: #### M ALBR #### [facility] [address] [place] [address] Dr. Yinka Flores PROF 14(COMP METB)on 023 Albumin [Mass/Vol] 3.7 g/dL Normal 3.4-5.0 [facility] Comment on above: Performed By: #### L IPID, CMP #### [facility] [address] [address] [address] Yinka Flores Albumin/Globulin [Mass ratio] 0.7 {ratio} Normal [facility] Comment on above: Performed By: #### L IPID, CMP #### [facility] [address] [address] [address] Yinka Flores ALP [Catalytic activity/Vol] 179 U/L Critically high 46-116 [facility] Comment on above: Performed By: #### L IPID, CMP #### [facility] [address] [address] [address] Yinka Flores ALT [Catalytic activity/Vol] 46 U/L Normal 16-63 [facility] Comment on above: Performed By: #### L IPID, CMP #### [facility] [address] [address] [address] Yinka Flores Anion gap [Moles/Vol] 10.7 mmol/L Normal [facility] Comment on above: Performed By: #### L IPID, CMP #### [facility] [address] [place] [address] Dr. Yinka Flores AST [Catalytic activity/Vol] 29 U/L Normal 15-37 [facility] Comment on above: Performed By: #### L IPID, CMP #### [facility] [address] [address] [address] Yinka Flores Bilirubin [Mass/Vol] 0.3 mg/dL Normal 0.2-1.0 [facility] Comment on above: Performed By: #### L IPID, CMP #### [facility] [address] [address] [address] Yinka Flores Calcium [Mass/Vol] 9.4 mg/dL Normal 8.5-10.1 [facility] Comment on above: Performed By: #### L IPID, CMP #### [facility] [address] [address] [address] Yinka Flores Chloride [Moles/Vol] 100 mmol/L Normal 98-107 [facility] Comment on above: Performed By: #### L IPID, CMP #### [facility] [address] [place] [address] Dr. Yinka Flores CO2 [Moles/Vol] 29.4 mmol/L Normal 21.0-32.0 [facility] Comment on above: Performed By: #### L IPID, CMP #### [facility] [address] [place] [address] Dr. Yinka Flores Creatinine [Mass/Vol] 0.70 mg/dL Normal 0.70-1.30 [facility] Comment on above: Performed By: #### L IPID, CMP #### [facility] [address] [place] [address] Dr. Yinka Flores EGFR-AF CZECH >60 Normal >=60 [facility] Comment on above: Performed By: #### L IPID, CMP #### [facility] [address] [place] [address] Dr. Yinka Flores EGFR-NON AF CZECH >60 Normal >=60 [facility] Comment on above: Performed By: #### L IPID, CMP #### [facility] [address] [place] [address] Dr. Yinka Flores Globulin (S) [Mass/Vol] 5.1 g/dL Normal [facility] Comment on above: Performed By: #### L IPID, CMP #### [facility] [address] [place] [address] Dr. Yinka Flores Glucose [Mass/Vol] 108 mg/dL Critically high 74-106 [facility] Comment on above: Performed By: #### L IPID, CMP #### [facility] [address] [place] [address] Dr. Yinka Flores Potassium [Moles/Vol] 4.1 mmol/L Normal 3.5-5.1 [facility] Comment on above: Performed By: #### L IPID, CMP #### [facility] [address] [address] [address] Yinka Flores Protein [Mass/Vol] 8.8 g/dL Critically high 6.4-8.2 [facility] Comment on above: Performed By: #### L IPID, CMP #### [facility] [address] [place] [address] Dr. Yinka Flores Sodium [Moles/Vol] 136 mmol/L Normal 136-145 [facility] Comment on above: Performed By: #### L IPID, CMP #### [facility] [address] [place] [address] Dr. Yinka Flores Urea nitrogen [Mass/Vol] 11.0 mg/dL Normal 7.0-18.0 [facility] Comment on above: Performed By: #### L IPID, CMP #### [facility] [address] [place] [address] Dr. Yinka Flores Urea nitrogen/Creatinine [Mass ratio] 15.7 mg/mg Normal [facility] Comment on above: Performed By: #### L IPID, CMP #### [facility] [address] [place] [address] Dr. Yinka Flores UA RANDOM W/MICROSCOPICon BACTERIA NONE SEEN Normal NONE SEEN [facility] Comment on above: Performed By: #### U AMIC #### [facility] [address] [place] [address] Dr. Yinka Flores Bilirubin Ql (U) Negative Normal NEGATIVE [facility] Comment on above: Performed By: #### U AMIC #### [facility] [address] [place] [address] Dr. Yinka Flores CAST NONE SEEN Normal NONE SEEN [facility] Comment on above: Performed By: #### U AMIC #### [facility] [address] [place] [address] Dr. Yinka Flores Clarity (U) CLEAR Normal CLEAR [facility] Comment on above: Performed By: #### U AMIC #### [facility] [address] [place] [address] Dr. Yinka Flores Color (U) LT. YELLOW Normal YELLOW [facility] Comment on above: Performed By: #### U AMIC #### [facility] [address] [address] [address] Yinka Flores Crystals LM Nom (Urine sed) NONE SEEN Normal NONE SEEN [facility] Comment on above: Performed By: #### U AMIC #### [facility] [address] [address] [address] Yinka Flores Epithelial cells LM Ql (Urine sed) NONE SEEN Normal NONE SEEN /RARE [facility] Comment on above: Performed By: #### U AMIC #### [facility] [address] [address] [address] Yinka Flores Glucose Ql (U) Negative Normal NEGATIVE The [facility] Comment on above: Performed By: #### U AMIC #### [facility] [address] [address] [address] Yinka Flores Hemoglobin Ql (U) Negative Normal NEGATIVE [facility] Comment on above: Performed By: #### U AMIC #### [facility] [address] [address] [address] Yinka Flores Ketones Ql (U) Negative Normal NEGATIVE The [facility] Comment on above: Performed By: #### U AMIC #### [facility] [address] [address] [address] Yinka Flores LEUKOCYTES Negative Normal NEGATIVE [facility] Comment on above: Performed By: #### U AMIC #### [facility] [address] [address] [address] Yinka Flores MUCOUS NONE SEEN Normal NONE SEEN [facility] Comment on above: Performed By: #### U AMIC #### [facility] [address] [address] [address] Yinka Flores Nitrite Ql (U) Negative Normal NEGATIVE [facility] Comment on above: Performed By: #### U AMIC #### [facility] [address] [address] [address] Yinka Flores pH (U) 6.0 [pH] Normal 5-9 [facility] Comment on above: Performed By: #### U AMIC #### [facility] [address] [address] [address] Yinka Flores RBC NONE SEEN Abnormal 0-2 [facility] Comment on above: Performed By: #### U AMIC #### [facility] [address] [place] [address] Dr. Yinka Flores SPEC GRAVITY <=1.005 Abnormal 1.005-<=1.025 [facility] Comment on above: Performed By: #### U AMIC #### [facility] [address] [place] [address] Dr. Yinka Flores UA PROTEIN Negative Normal NEGATIVE/ TRACE [facility] Comment on above: Performed By: #### U AMIC #### [facility] [address] [place] [address] Dr. Yinka Flores Urobilinogen Qn (U) 0.2 {Richi'U}/dL Normal 0.2 - 1. 0 [facility] Comment on above: Performed By: #### U AMIC #### [facility] [address] [place] [address] Dr. Yinka Flores WBC NONE SEEN Normal NONE SEEN [facility] Comment on above: Performed By: #### U AMIC #### [facility] [address] [place] [address] Dr. Yinka Flores HEMOGLOBIN A1C (POC)on 07-15 HbA1c (Bld) [Mass fraction] 9.1 % Abnormal 4.2 - 5.6 % [facility] HEMOGLOBIN A1C (POC)on 03-19 HbA1c (Bld) [Mass fraction] 9.6 % Abnormal 4.2 - 5.6 % [facility] CBC AUTO DIFFon 11-21-2021 BASO # 0.1 103/ul Normal 0.0-0.1 [facility] Comment on above: Performed By: #### A 1C #### [facility] [address] [place] [address] Dr. Yinka Flores Basophils/100 WBC (Bld) 0.7 % Normal 0.2-2.0 [facility] Comment on above: Performed By: #### A 1C #### [facility] [address] [place] [address] Dr. Yinka Flores EO # 0.4 103/ul Normal 0.0-0.7 [facility] Comment on above: Performed By: #### A 1C #### [facility] [address] [place] [address] Dr. Yinka Flores Eosinophils/100 WBC (Bld) 4.0 % Normal 0.9-7.0 [facility] Comment on above: Performed By: #### A 1C #### [facility] [address] [place] [address] Dr. Yinka Flores Erythrocyte distribution width (RBC) [Ratio] 14.5 % Normal 11.0-15.0 [facility] Comment on above: Performed By: #### A 1C #### [facility] [address] [place] [address] Dr. Yinka Flores Hematocrit (Bld) [Volume fraction] 45.0 % Normal 42.0-54.0 [facility] Comment on above: Performed By: #### A 1C #### [facility] [address] [place] [address] Dr. Yinka Flores Hemoglobin (Bld) [Mass/Vol] 15.0 g/dL Normal 14.0-18.0 [facility] Comment on above: Performed By: #### A 1C #### [facility] [address] [place] [address] Dr. Yinka Flores IG # 0.06 10e3/ul Critically high 0.00-0.03 [facility] Comment on above: Performed By: #### A 1C #### [facility] [address] [place] [address] Dr. Yinka Flores IG % 0.6 % Critically high 0.0-0.5 [facility] Comment on above: Performed By: #### A 1C #### [facility] [address] [place] [address] Dr. Yinka Flores LYMPH # 2.1 103/ul Normal 1.2-3.8 [facility] Comment on above: Performed By: #### A 1C #### [facility] [address] [place] [address] Dr. Yinka Flores Lymphocytes/100 WBC (Bld) 19.6 % Critically low 20.5-60.0 [facility] Comment on above: Performed By: #### A 1C #### [facility] [address] [place] [address] Dr. Yinka Flores MANUAL DIFF REQ NO Normal [facility] Comment on above: Performed By: #### A 1C #### [facility] [address] [place] [address] Dr. Yinka Flores MCH (RBC) [Entitic mass] 26.1 pg Normal 25.9-34.0 [facility] Comment on above: Performed By: #### A 1C #### [facility] [address] [place] [address] Dr. Yinka Flores MCHC (RBC) [Mass/Vol] 33.3 g/dL Normal 29.9-35.2 [facility] Comment on above: Performed By: #### A 1C #### [facility] [address] [place] [address] Dr. Yinka Flores MCV (RBC) [Entitic vol] 78.3 fL Critically low 80.0-94.0 [facility] Comment on above: Performed By: #### A 1C #### [facility] [address] [place] [address] Dr. Yinka Flores MONO # 0.8 103/ul Normal 0.3-0.8 [facility] Comment on above: Performed By: #### A 1C #### [facility] [address] [place] [address] Dr. Yinka Flores Monocytes/100 WBC (Bld) 7.6 % Normal 1.7-12.0 [facility] Comment on above: Performed By: #### A 1C #### [facility] [address] [place] [address] Dr. Yinka Flores NEUT # 7.1 103/ul Critically high 1.4-6.5 [facility] Comment on above: Performed By: #### A 1C #### [facility] [address] [place] [address] Dr. Yinka Flores Neutrophils/100 WBC (Bld) 67.5 % Normal 43.0-75.0 [facility] Comment on above: Performed By: #### A 1C #### [facility] [address] [place] [address] Dr. Yinka Flores Platelet mean volume (Bld) [Entitic vol] 10.0 fL Normal 9.5-13.5 [facility] Comment on above: Performed By: #### A 1C #### [facility] [address] [place] [address] Dr. Yinka Flores PLT 256 103/ul Normal 150-450 [facility] Comment on above: Performed By: #### A 1C #### [facility] [address] [place] [address] Dr. Yinka Flores RBC 5.75 106/ul Normal 4.70-6.10 [facility] Comment on above: Performed By: #### A 1C #### [facility] [address] [place] [address] Dr. Yinka Flores WBC 10.5 103/ul Normal 4.0-11.0 [facility] Comment on above: Performed By: #### A 1C #### [facility] [address] [place] [address] ABD/PELVIS WO CONon [...] SHANEL GOMEZ Date: 2021-11-21 17:00 Normal [facility] ER URINE PROFILEon 2 Bilirubin Ql (U) Negative Normal NEGATIVE [facility] Comment on above: Performed By: #### M ALBR #### [facility] [address] [place] [address] Dr. Yinka Flores Clarity (U) CLEAR Normal CLEAR [facility] Comment on above: Performed By: #### M ALBR #### [facility] [address] [place] [address] Dr. Yinka Flores Color (U) YELLOW Normal YELLOW [facility] Comment on above: Performed By: #### M ALBR #### [facility] [address] [address] [address] Yinka CAMEJO A micrscopic examination will be performed if indicated. Normal [facility] Comment on above: Performed By: #### M ALBR #### [facility] [address] [address] [address] Yinka Flores Glucose Ql (U) 1000 mg/dl Abnormal NEGATIVE The [facility] Comment on above: Performed By: #### M ALBR #### [facility] [address] [address] [address] Yinka Flores Hemoglobin Ql (U) Negative Normal NEGATIVE [facility] Comment on above: Performed By: #### M ALBR #### [facility] [address] [place] [address] Dr. Yinka Flores Ketones Ql (U) Negative Normal NEGATIVE [facility] Comment on above: Performed By: #### M ALBR #### [facility] [address] [place] [address] Dr. Yinka Flores LEUKOCYTES Negative Normal NEGATIVE [facility] Comment on above: Performed By: #### M ALBR #### [facility] [address] [place] [address] Dr. Yinka Flores Nitrite Ql (U) Negative Normal NEGATIVE [facility] Comment on above: Performed By: #### M ALBR #### [facility] [address] [place] [address] Dr. Yinka Flores pH (U) 5.0 [pH] Normal 5-9 [facility] Comment on above: Performed By: #### M ALBR #### [facility] [address] [place] [address] Dr. Yinka Flores SPEC GRAVITY 1.020 Normal 1.005-<=1.025 [facility] Comment on above: Performed By: #### M ALBR #### [facility] [address] [place] [address] Dr. Yinka Flores UA PROTEIN Negative Normal NEGATIVE/ TRACE [facility] Comment on above: Performed By: #### M ALBR #### [facility] [address] [place] [address] Dr. Yinka Flores UR MICRO IND NOT INDICATED Normal [facility] Comment on above: Performed By: #### M ALBR #### [facility] [address] [place] [address] Dr. Yinka Flores Urobilinogen Qn (U) 0.2 {Richi'U}/dL Normal 0.2 - 1. 0 [facility] Comment on above: Performed By: #### M ALBR #### [facility] [address] [place] [address] Dr. Yinka Flores LACTATE/LACTIC ACIDon 2021 Lactate [Moles/Vol] 1.4 mmol/L Normal 0.4-1.9 [facility] Comment on above: Performed By: #### L ACT #### [facility] [address] [place] [address] Dr. Yinka Flores LIPASEon 11-21-2021 Lipase [Catalytic activity/Vol] 262.0 U/L Normal 73.0-393.0 [facility] Comment on above: Performed By: #### M ALBR #### [facility] [address] [place] [address] Dr. Yinka Flores PROF 14(COMP METB)on 022 Albumin [Mass/Vol] 3.3 g/dL Critically low 3.4-5.0 [facility] Comment on above: Performed By: #### M ALBR #### [facility] [address] [place] [address] Dr. Yinka Flores Albumin/Globulin [Mass ratio] 0.7 {ratio} Normal [facility] Comment on above: Performed By: #### M ALBR #### [facility] [address] [place] [address] Dr. Yinka Flores ALP [Catalytic activity/Vol] 187 U/L Critically high 46-116 [facility] Comment on above: Performed By: #### M ALBR #### [facility] [address] [place] [address] Dr. Yinka Flores ALT [Catalytic activity/Vol] 50 U/L Normal 16-63 [facility] Comment on above: Performed By: #### M ALBR #### [facility] [address] [place] [address] Dr. Yinka Flores Anion gap [Moles/Vol] 11.5 mmol/L Normal [facility] Comment on above: Performed By: #### M ALBR #### [facility] [address] [place] [address] Dr. Yinka Flores AST [Catalytic activity/Vol] 33 U/L Normal 15-37 [facility] Comment on above: Performed By: #### M ALBR #### [facility] [address] [place] [address] Dr. Yinka Flores Bilirubin [Mass/Vol] 0.4 mg/dL Normal 0.2-1.0 [facility] Comment on above: Performed By: #### M ALBR #### [facility] [address] [place] [address] Dr. Yinka Flores Calcium [Mass/Vol] 8.8 mg/dL Normal 8.5-10.1 [facility] Comment on above: Performed By: #### M ALBR #### [facility] [address] [place] [address] Dr. Yinka Flores Chloride [Moles/Vol] 100 mmol/L Normal 98-107 [facility] Comment on above: Performed By: #### M ALBR #### [facility] [address] [place] [address] Dr. Yinka Flores CO2 [Moles/Vol] 26.7 mmol/L Normal 21.0-32.0 [facility] Comment on above: Performed By: #### M ALBR #### [facility] [address] [place] [address] Dr. Yinka Flores Creatinine [Mass/Vol] 0.91 mg/dL Normal 0.70-1.30 [facility] Comment on above: Performed By: #### M ALBR #### [facility] [address] [place] [address] Dr. Yinka Flores EGFR-AF CZECH >60 Normal >=60 [facility] Comment on above: Performed By: #### M ALBR #### [facility] [address] [place] [address] Dr. Yinka Flores EGFR-NON AF CZECH >60 Normal >=60 [facility] Comment on above: Performed By: #### M ALBR #### [facility] [address] [place] [address] Dr. Yinka Flores Globulin (S) [Mass/Vol] 5.0 g/dL Normal [facility] Comment on above: Performed By: #### M ALBR #### [facility] [address] [place] [address] Dr. Yinka Flores Glucose [Mass/Vol] 379 mg/dL Critically high 74-106 [facility] Comment on above: Performed By: #### M ALBR #### [facility] [address] [place] [address] Dr. Yinka Flores Potassium [Moles/Vol] 4.2 mmol/L Normal 3.5-5.1 [facility] Comment on above: Performed By: #### M ALBR #### [facility] [address] [place] [address] Dr. Yinka Flores Protein [Mass/Vol] 8.3 g/dL Critically high 6.4-8.2 [facility] Comment on above: Performed By: #### M ALBR #### [facility] [address] [place] [address] Dr. Yinka Flores Sodium [Moles/Vol] 134 mmol/L Critically low 136-145 [facility] Comment on above: Performed By: #### M ALBR #### [facility] [address] [place] [address] Dr. Yinka Flores Urea nitrogen [Mass/Vol] 19.0 mg/dL Critically high 7.0-18.0 [facility] Comment on above: Performed By: #### M ALBR #### [facility] [address] [place] [address] Dr. Yinka Flores Urea nitrogen/Creatinine [Mass ratio] 20.9 mg/mg Normal [facility] Comment on above: Performed By: #### M ALBR #### [facility] [address] [place] [address] Dr. Yinka Flores PROTIMEon 11-21-2021 INR Coag (PPP) [Relative time] 1.01 {INR} Normal [facility] Comment on above: Performed By: #### M ALBR #### [facility] [address] [place] [address] Dr. Yinka Flores INR GUIDELINES SEE BELOW Normal [facility] Comment on above: Result Comment: JAMEE RED INR: 2.0 - 3.0 CONDITIONS NOT LISTED BELOW 2.5 - 3.5 FOR PROSTHETIC HEART VALVE REPLACEMENT 2.5 - 3.5 RECURRENT THROMBOSIS Performed By: #### M ALBR #### [facility] [address] [place] [address] Dr. Yinka Flores PT Coag (PPP) [Time] 10.9 s Normal 9.0-11.6 [facility] Comment on above: Performed By: #### M ALBR #### [facility] [address] [place] [address] Dr. Yinka Flores PTTon 11-21-2021 aPTT Coag (Bld) [Time] 26.2 s Normal 22.3-36.2 [facility] Comment on above: Performed By: #### M ALBR #### [facility] [address] [place] [address] Dr. Yinka Flores CBC AUTO DIFFon 09-05-2021 BASO # 0.1 103/ul Normal 0.0-0.1 [facility] Comment on above: Performed By: #### C BC #### [facility] [address] [place] [address] Dr. Yinka Flores Basophils/100 WBC (Bld) 0.7 % Normal 0.2-2.0 [facility] Comment on above: Performed By: #### C BC #### [facility] [address] [place] [address] Dr. Yinka Flores EO # 0.4 103/ul Normal 0.0-0.7 [facility] Comment on above: Performed By: #### C BC #### [facility] [address] [place] [address] Dr. Yinka Flores Eosinophils/100 WBC (Bld) 4.9 % Normal 0.9-7.0 [facility] Comment on above: Performed By: #### C BC #### [facility] [address] [place] [address] Dr. Yinka Flores Erythrocyte distribution width (RBC) [Ratio] 14.4 % Normal 11.0-15.0 [facility] Comment on above: Performed By: #### C BC #### [facility] [address] [place] [address] Dr. Yinka Flroes Hematocrit (Bld) [Volume fraction] 43.5 % Normal 42.0-54.0 [facility] Comment on above: Performed By: #### C BC #### [facility] [address] [place] [address] Dr. Yinka Flores Hemoglobin (Bld) [Mass/Vol] 14.4 g/dL Normal 14.0-18.0 [facility] Comment on above: Performed By: #### C BC #### [facility] [address] [place] [address] Dr. Yinka Flores IG # 0.03 10e3/ul Normal 0.00-0.03 [facility] Comment on above: Performed By: #### C BC #### [facility] [address] [place] [address] Dr. Yinka Flores IG % 0.4 % Normal 0.0-0.5 [facility] Comment on above: Performed By: #### C BC #### [facility] [address] [place] [address] Dr. Yinka Flores LYMPH # 1.9 103/ul Normal 1.2-3.8 [facility] Comment on above: Performed By: #### C BC #### [facility] [address] [place] [address] Dr. Yinka Flores Lymphocytes/100 WBC (Bld) 23.5 % Normal 20.5-60.0 [facility] Comment on above: Performed By: #### C BC #### [facility] [address] [place] [address] Dr. Yinka Flores MANUAL DIFF REQ NO Normal [facility] Comment on above: Performed By: #### C BC #### [facility] [address] [place] [address] Dr. Yinka Flores MCH (RBC) [Entitic mass] 26.3 pg Normal 25.9-34.0 [facility] Comment on above: Performed By: #### C BC #### [facility] [address] [place] [address] Dr. Yinka Flores MCHC (RBC) [Mass/Vol] 33.1 g/dL Normal 29.9-35.2 [facility] Comment on above: Performed By: #### C BC #### [facility] [facility] [address] [place] [address] Dr. Yinka Flores MCV (RBC) [Entitic vol] 79.5 fL Critically low 80.0-94.0 [facility] Comment on above: Performed By: #### C BC #### [facility] [address] [address] [address] Yinka Flores MONO # 0.6 103/ul Normal 0.3-0.8 [facility] Comment on above: Performed By: #### C BC #### [facility] [address] [address] [address] Yinka Flores Monocytes/100 WBC (Bld) 7.0 % Normal 1.7-12.0 [facility] Comment on above: Performed By: #### C BC #### [facility] [address] [address] [address] Yinka Flores NEUT # 5.2 103/ul Normal 1.4-6.5 [facility] Comment on above: Performed By: #### C BC #### [facility] [address] [place] [address] Dr. Yinka Flores Neutrophils/100 WBC (Bld) 63.5 % Normal 43.0-75.0 [facility] Comment on above: Performed By: #### C BC #### [facility] [address] [place] [address] Dr. Yinka Flores Platelet mean volume (Bld) [Entitic vol] 11.0 fL Normal 9.5-13.5 [facility] Comment on above: Performed By: #### C BC #### [facility] [address] [place] [address] Dr. Yinka Flores PLT 263 103/ul Normal 150-450 [facility] Comment on above: Performed By: #### C BC #### [facility] [address] [place] [address] Dr. Yinka Flores RBC 5.47 106/ul Normal 4.70-6.10 [facility] Comment on above: Performed By: #### C BC #### [facility] [address] [place] [address] Dr. Yinka Flores WBC 8.1 103/ul Normal 4.0-11.0 [facility] Comment on above: Performed By: #### C BC #### [facility] [address] [address] [address] Yinka Flores GLYCOHEMOGLOBIN A1Con 2021 ADA RECOMMENDATION ADA THERAPEUTIC TARGET 6.0 - 7.0 ACTION SUGGESTED > 7.0 Normal [facility] Comment on above: Performed By: #### A 1C #### [facility] [address] [address] [address] Yinka Flores Glucose [Mass/Vol] 272 mg/dL Normal [facility] Comment on above: Performed By: #### A 1C #### [facility] [address] [address] [address] Yinka Flores HbA1c (Bld) [Mass fraction] 11.1 % Critically high <=6.0 [facility] Comment on above: Performed By: #### A 1C #### [facility] [address] [place] [address] Dr. Yinka Flores LIPID PROFILEon 09-05-2021 CHOL-HDL RATIO NORM SEE BELOW Normal [facility] Comment on above: Result Comment: 3.3 - 4.4 LOW RISK 4.4 - 7.1 AVERAGE RISK 7.1 - 11.0 MODERATE RISK >11.0 HIGH RISK Performed By: #### M ALBR #### [facility] [address] [place] [address] Dr. Yinka Flores Cholesterol [Mass/Vol] 218 mg/dL Critically high <=200 [facility] Comment on above: Performed By: #### M ALBR #### [facility] [address] [address] [address] Yinka Flores Cholesterol in HDL [Mass/Vol] 34 mg/dL Critically low 40-60 [facility] Comment on above: Performed By: #### M ALBR #### [facility] [address] [place] [address] Dr. Yinka Flores Cholesterol in LDL [Mass/Vol] 111.0 mg/dL Normal [facility] Comment on above: Performed By: #### M ALBR #### [facility] [address] [place] [address] Dr. Yinka Flores Cholesterol.total/Cho lesterol in HDL [Mass ratio] 6.4 {ratio} Normal [facility] Comment on above: Performed By: #### M ALBR #### [facility] [address] [place] [address] Dr. Yinka Flores HDL NORMAL > or = 60 mg/dl - LOW CARDIOVASCULAR RISK <40 mg/dl - HIGH CARDIOVASCULAR RISK Normal [facility] Comment on above: Performed By: #### M ALBR #### [facility] [address] [address] [address] Yinka Flores LDL CALC NORMAL SEE BELOW Normal [facility] Comment on above: Result Comment: <100 mg/dl OPTIMAL 100 - 129 mg/dl NEAR OR ABOVE OPTIMAL 130 - 159 mg/dl BORDERLINE HIGH 160 - 189 mg/dl HIGH >190 mg/dl VERY HIGH Performed By: #### M ALBR #### [facility] [address] [place] [address] Dr. Yinka Flores Triglyceride [Mass/Vol] 365 mg/dL Critically high <=150 [facility] Comment on above: Performed By: #### M ALBR #### [facility] [address] [place] [address] Dr. Yinka Flores VLDL CALC 73.0 mg/dL Normal [facility] Comment on above: Performed By: #### M ALBR #### [facility] [address] [place] [address] Dr. Yinka Flores MICROALBUMIN, RAND URon 08-09 mALB 2.4 mg/L Normal <=30.0 [facility] Comment on above: Performed By: #### M ALBR #### [facility] [address] [place] [address] Dr. Yinka Flores PROF 14(COMP METB)on 022 Albumin [Mass/Vol] 3.5 g/dL Normal 3.4-5.0 [facility] Comment on above: Performed By: #### M ALBR #### [facility] [address] [place] [address] Dr. Yinka Flores Albumin/Globulin [Mass ratio] 0.7 {ratio} Normal [facility] Comment on above: Performed By: #### M ALBR #### [facility] [address] [address] [address] Yinka Flores ALP [Catalytic activity/Vol] 176 U/L Critically high 46-116 [facility] Comment on above: Performed By: #### M ALBR #### [facility] [address] [address] [address] Yinka Flores ALT [Catalytic activity/Vol] 48 U/L Normal 16-63 [facility] Comment on above: Performed By: #### M ALBR #### [facility] [address] [address] [address] Yinka Flores Anion gap [Moles/Vol] 12.8 mmol/L Normal [facility] Comment on above: Performed By: #### M ALBR #### [facility] [address] [place] [address] Dr. Yinka Flores AST [Catalytic activity/Vol] 19 U/L Normal 15-37 [facility] Comment on above: Performed By: #### M ALBR #### [facility] [address] [place] [address] Dr. Yinka Flores Bilirubin [Mass/Vol] 0.4 mg/dL Normal 0.2-1.3 [facility] Comment on above: Performed By: #### M ALBR #### [facility] [address] [place] [address] Dr. Yinka Flores Calcium [Mass/Vol] 8.8 mg/dL Normal 8.5-10.1 [facility] Comment on above: Performed By: #### M ALBR #### [facility] [address] [address] [address] Yinka Flores Chloride [Moles/Vol] 99 mmol/L Normal 98-107 [facility] Comment on above: Performed By: #### M ALBR #### [facility] [address] [address] [address] Yinka Flores CO2 [Moles/Vol] 25.3 mmol/L Normal 22.0-30.0 [facility] Comment on above: Performed By: #### M ALBR #### [facility] [address] [address] [address] Yinka Flores Creatinine [Mass/Vol] 0.71 mg/dL Normal 0.66-1.25 [facility] Comment on above: Performed By: #### M ALBR #### [facility] [address] [address] [address] Yinka Flores EGFR-AF CZECH >60 Normal >=60 [facility] Comment on above: Performed By: #### M ALBR #### [facility] [address] [address] [address] Yinka Flores EGFR-NON AF CZECH >60 Normal >=60 [facility] Comment on above: Performed By: #### M ALBR #### [facility] [address] [place] [address] Dr. Yinka Flores Globulin (S) [Mass/Vol] 4.9 g/dL Normal [facility] Comment on above: Performed By: #### M ALBR #### [facility] [address] [place] [address] Dr. Yinka Flores Glucose [Mass/Vol] 394 mg/dL Critically high 74-106 [facility] Comment on above: Performed By: #### M ALBR #### [facility] [address] [place] [address] Dr. Yinka Flores Potassium [Moles/Vol] 4.1 mmol/L Normal 3.4-5.0 [facility] Comment on above: Performed By: #### M ALBR #### [facility] [address] [place] [address] Dr. Yinka Flores Protein [Mass/Vol] 8.4 g/dL Critically high 6.1-8.2 [facility] Comment on above: Performed By: #### M ALBR #### [facility] [address] [place] [address] Dr. Yinka Flores Sodium [Moles/Vol] 133 mmol/L Critically low 137-145 [facility] Comment on above: Performed By: #### M ALBR #### [facility] [address] [place] [address] Dr. Yinka Flores Urea nitrogen [Mass/Vol] 12.0 mg/dL Normal 7.0-18.0 [facility] Comment on above: Performed By: #### M ALBR #### [facility] [address] [place] [address] Dr. Yinka Flores Urea nitrogen/Creatinine [Mass ratio] 16.9 mg/mg Normal [facility] Comment on above: Performed By: #### M ALBR #### [facility] [address] [place] [address] Dr. Yinka Flores UA RANDOM W/MICROSCOPICon BACTERIA NONE SEEN Normal NONE SEEN [facility] Comment on above: Performed By: #### U AMIC #### [facility] [address] [place] [address] Dr. Yinka Flores Bilirubin Ql (U) Negative Normal NEGATIVE [facility] Comment on above: Performed By: #### U AMIC #### [facility] [address] [place] [address] Dr. Yinka Flores CAST NONE SEEN Normal NONE SEEN [facility] Comment on above: Performed By: #### U AMIC #### [facility] [address] [place] [address] Dr. Yinka Flores Clarity (U) CLEAR Normal CLEAR [facility] Comment on above: Performed By: #### U AMIC #### [facility] [address] [place] [address] Dr. Yinka Flores Color (U) LT. YELLOW Normal YELLOW [facility] Comment on above: Performed By: #### U AMIC #### [facility] [address] [place] [address] Dr. Yinka Flores Crystals LM Nom (Urine sed) NONE SEEN Normal NONE SEEN [facility] Comment on above: Performed By: #### U AMIC #### [facility] [address] [place] [address] Dr. Yinka Flores Epithelial cells LM Ql (Urine sed) RARE Normal NONE SEEN /RARE [facility] Comment on above: Performed By: #### U AMIC #### [facility] [address] [address] [address] Yinka Flores Glucose Ql (U) >1000 Abnormal NEGATIVE The [facility] Comment on above: Performed By: #### U AMIC #### [facility] [address] [address] [address] Yinka Flores Hemoglobin Ql (U) Negative Normal NEGATIVE [facility] Comment on above: Performed By: #### U AMIC #### [facility] [address] [address] [address] Yinka Flores Ketones Ql (U) TRACE Abnormal NEGATIVE The [facility] Comment on above: Performed By: #### U AMIC #### [facility] [address] [address] [address] Yinka Flores LEUKOCYTES Negative Normal NEGATIVE [facility] Comment on above: Performed By: #### U AMIC #### [facility] [address] [place] [address] Dr. Yinka Flores MUCOUS NONE SEEN Normal NONE SEEN [facility] Comment on above: Performed By: #### U AMIC #### [facility] [address] [address] [address] Yinka Flores Nitrite Ql (U) Negative Normal NEGATIVE The [facility] Comment on above: Performed By: #### U AMIC #### [facility] [address] [place] [address] Dr. Yinka Flores pH (U) 5.5 [pH] Normal 5-9 [facility] Comment on above: Performed By: #### U AMIC #### [facility] [address] [place] [address] Dr. Yinka Flores RBC 0-2 Normal 0-2 [facility] Comment on above: Performed By: #### U AMIC #### [facility] [address] [place] [address] Dr. Yinka Flores SPEC GRAVITY 1.010 Normal 1.005-<=1.025 [facility] Comment on above: Performed By: #### U AMIC #### [facility] [address] [place] [address] Dr. Yinka Flores UA PROTEIN Negative Normal NEGATIVE/ TRACE [facility] Comment on above: Performed By: #### U AMIC #### [facility] [address] [address] [address] Yinka Flores Urobilinogen Qn (U) 0.2 {Richi'U}/dL Normal 0.2 - 1. 0 [facility] Comment on above: Performed By: #### U AMIC #### [facility] [address] [address] [address] Yinka Flores WBC NONE SEEN Normal NONE SEEN [facility] Comment on above: Performed By: #### U AMIC #### [facility] [address] [address] [address] Yinka Flores ECHOon 09-03-2021 [facility] LVEF TRANSTHORACIC ECHOon LV Ejection Fraction 61 % [facility] Vital Signs Date Time Vital Sign Value Performing Clinician Facility 02-18-2025 07:43-0400 Body height 177.8 cm Mal Coello MD Work Phone: [facility] 02-18-2025 07:43-0400 Body mass index (BMI) [Ratio] 37.74 kg/m2 Mal Coello MD Work Phone: [facility] 02-18-2025 07:43-0400 Body weight 119.3 kg Mal Coello MD Work Phone: [facility] 02-18-2025 07:43-0400 Diastolic blood pressure 80 mm[Hg] Mal Coello MD Work Phone: [facility] 02-18-2025 07:43-0400 Heart rate 69 /min Mal Coello MD Work Phone: [facility] 02-18-2025 07:43-0400 SaO2% (BldA) [Mass fraction] 100 % Mal Coello MD Work Phone: [facility] 02-18-2025 07:43-0400 Systolic blood pressure 140 mm[Hg] Mal Coello MD Work Phone: [facility] 01-17-2025 15:30-0400 Body mass index (BMI) [Ratio] 36.99 kg/m2 Rolf Madhavihholz ATHLETIC COACH Work Phone: [facility] 01-17-2025 15:30-0400 Body temperature 98.01 [degF] Rolf Aichholz ATHLETIC COACH Work Phone: [facility] 01-17-2025 15:30-0400 Body weight 116.94 kg Rlof Aichholz ATHLETIC COACH Work Phone: [facility] 01-17-2025 15:30-0400 Diastolic blood pressure 78 mm[Hg] Rolf Aichholz ATHLETIC COACH Work Phone: [facility] 01-17-2025 15:30-0400 Heart rate 78 /min Rolf Aichholz ATHLETIC COACH Work Phone: [facility] 01-17-2025 15:30-0400 Respiratory rate 20 /min Rolf Aichholz ATHLETIC COACH Work Phone: [facility] 01-17-2025 15:30-0400 SaO2% (BldA) [Mass fraction] 96 % Rolf Aichholz ATHLETIC COACH Work Phone: [facility] 01-17-2025 15:30-0400 Systolic blood pressure 98 mm[Hg] Rolf Aichholz ATHLETIC COACH Work Phone: [facility] 12-07-2024 15:52-0400 Diastolic blood pressure 72 mm[Hg] Rolf Aichholz ATHLETIC COACH Work Phone: [facility] 12-07-2024 15:52-0400 Systolic blood pressure 128 mm[Hg] Rolf Aichholz ATHLETIC COACH Work Phone: [facility] 12-07-2024 15:17-0400 Body mass index (BMI) [Ratio] 37.77 kg/m2 Rolf Aichholz ATHLETIC COACH Work Phone: [facility] 12-07-2024 15:17-0400 Body temperature 98.1 [degF] Rolf Chung ATHLETIC COACH Work Phone: [facility] 12-07-2024 15:17-0400 Body weight 119.39 kg Rolf Chung ATHLETIC COACH Work Phone: [facility] 12-07-2024 15:17-0400 Heart rate 71 /min Rolf Chung ATHLETIC COACH Work Phone: [facility] 12-07-2024 15:17-0400 Respiratory rate 18 /min Rolf Chung ATHLETIC COACH Work Phone: [facility] 12-07-2024 15:17-0400 SaO2% (BldA) [Mass fraction] 97 % Rolf Chung ATHLETIC COACH Work Phone: [facility] 10-21-2024 09:23-0400 Body height 177.8 cm Yan Durham MD Work Phone: [facility] 10-21-2024 09:23-0400 Body mass index (BMI) [Ratio] 36.73 kg/m2 Yan Durham MD Work Phone: [facility] 10-21-2024 09:23-0400 Body weight 116.12 kg Yan Durham MD Work Phone: [facility] 10-21-2024 09:23-0400 Diastolic blood pressure 78 mm[Hg] Yan Durham MD Work Phone: [facility] 10-21-2024 09:23-0400 Heart rate 78 /min Yan Durham MD Work Phone: [facility] 10-21-2024 09:23-0400 SaO2% (BldA) [Mass fraction] 95 % Yan Durham MD Work Phone: [facility] 10-21-2024 09:23-0400 Systolic blood pressure 142 mm[Hg] Yan Durham MD Work Phone: [facility] 09-29-2024 10:41-0400 Body mass index (BMI) [Ratio] 36.95 kg/m2 Magnolia Kalkaska PA-C Work Phone: [facility] 09-29-2024 10:41-0400 Body temperature 97.3 [degF] Magnolia Kalkaska PA-C Work Phone: [facility] 09-29-2024 10:41-0400 Body weight 116.8 kg Magnolia Kalkaska PA-C Work Phone: [facility] 09-29-2024 10:41-0400 Diastolic blood pressure 72 mm[Hg] Magnolia Kalkaska PA-C Work Phone: [facility] 09-29-2024 10:41-0400 Heart rate 62 /min Magnolia Kalkaska PA-C Work Phone: [facility] 09-29-2024 10:41-0400 Respiratory rate 18 /min Magnolia Kalkaska PA-C Work Phone: [facility] 09-29-2024 10:41-0400 SaO2% (BldA) [Mass fraction] 99 % Magnolia Kalkaska PA-C Work Phone: [facility] 09-29-2024 10:41-0400 Systolic blood pressure 129 mm[Hg] Magnolia Kalkaska PA-C Work Phone: [facility] 09-15-2024 10:36-0400 Body height 177.8 cm William Howell MD, PhD Work Phone: [facility] 09-15-2024 10:36-0400 Body mass index (BMI) [Ratio] 37.29 kg/m2 William Howell MD, PhD Work Phone: [facility] 09-15-2024 10:36-0400 Body temperature 97.5 [degF] William Howell MD, PhD Work Phone: [facility] 09-15-2024 10:36-0400 Body weight 117.89 kg William Howell MD, PhD Work Phone: [facility] 09-15-2024 10:36-0400 Diastolic blood pressure 60 mm[Hg] William Howell MD, PhD Work Phone: [facility] 09-15-2024 10:36-0400 Heart rate 78 /min William Howell MD, PhD Work Phone: [facility] 09-15-2024 10:36-0400 Respiratory rate 18 /min William Howell MD, PhD Work Phone: [facility] 09-15-2024 10:36-0400 SaO2% (BldA) [Mass fraction] 97 % William Howell MD, PhD Work Phone: [facility] 09-15-2024 10:36-0400 Systolic blood pressure 136 mm[Hg] William Howell MD, PhD Work Phone: [facility] 09-10-2024 10:00-0400 Diastolic blood pressure 72 mm[Hg] Alan Hernandez MD Work Phone: [facility] 09-10-2024 10:00-0400 Heart rate 72 /min Alan Hernandez MD Work Phone: [facility] 09-10-2024 10:00-0400 Respiratory rate 16 /min Alan Hernandez MD Work Phone: [facility] 09-10-2024 10:00-0400 SaO2% (BldA) [Mass fraction] 94 % Alan Hernandez MD Work Phone: [facility] 09-10-2024 10:00-0400 Systolic blood pressure 150 mm[Hg] Alan Hernandez MD Work Phone: [facility] 09-10-2024 07:09-0400 Body temperature 97.39 [degF] Alan Hernandez MD Work Phone: [facility] 09-08-2024 09:10-0400 Body mass index (BMI) [Ratio] 36.93 kg/m2 William Howell MD, PhD Work Phone: [facility] 09-08-2024 09:10-0400 Body temperature 98.2 [degF] William Howell MD, PhD Work Phone: [facility] 09-08-2024 09:10-0400 Body weight 119 kg William Howell MD, PhD Work Phone: [facility] 09-08-2024 09:10-0400 Diastolic blood pressure 78 mm[Hg] William Howell MD, PhD Work Phone: [facility] Comment on above: Right arm sitting 09-08-2024 09:10-0400 Heart rate 75 /min William Howell MD, PhD Work Phone: [facility] 09-08-2024 09:10-0400 Respiratory rate 15 /min William Howell MD, PhD Work Phone: [facility] 09-08-2024 09:10-0400 SaO2% (BldA) [Mass fraction] 99 % William Howell MD, PhD Work Phone: [facility] 09-08-2024 09:10-0400 Systolic blood pressure 169 mm[Hg] William Howell MD, PhD Work Phone: [facility] Comment on above: Right arm sitting 08-11-2024 08:30-0500 Body height 177.8 cm Rolf Chung ATHLETIC COACH Work Phone: [facility] 08-11-2024 08:30-0500 Body mass index (BMI) [Ratio] 37.77 kg/m2 Rolf Chung ATHLETIC COACH Work Phone: [facility] 08-11-2024 08:30-0500 Body temperature 98.1 [degF] Rolf Chung ATHLETIC COACH Work Phone: [facility] 08-11-2024 08:30-0500 Body weight 119.39 kg Rolf Chung ATHLETIC COACH Work Phone: [facility] 08-11-2024 08:30-0500 Diastolic blood pressure 82 mm[Hg] Rolf Chung ATHLETIC COACH Work Phone: [facility] 08-11-2024 08:30-0500 Heart rate 65 /min Rolf Chung ATHLETIC COACH Work Phone: [facility] 08-11-2024 08:30-0500 Respiratory rate 18 /min Rolf Chung ATHLETIC COACH Work Phone: [facility] 08-11-2024 08:30-0500 SaO2% (BldA) [Mass fraction] 96 % Rolf Chung ATHLETIC COACH Work Phone: [facility] 08-11-2024 08:30-0500 Systolic blood pressure 124 mm[Hg] Rolf Chung ATHLETIC COACH Work Phone: [facility] 08-04-2024 10:53-0500 Body height 177.8 cm [facility] 1 [facility] 08-04-2024 10:53-0500 Body mass index (BMI) [Ratio] 36.73 kg/m2 [facility] 08-04-2024 10:53-0500 Body weight 116.12 kg P[facility] 1 [facility] 08-02-2024 08:06-0500 Body height 177.8 cm Yaniv Hernandez ATHLETIC COACH Work Phone: [facility] 08-02-2024 08:06-0500 Body mass index (BMI) [Ratio] 36.73 kg/m2 Yaniv Hernandez ATHLETIC COACH Work Phone: [facility] 08-02-2024 08:06-0500 Body weight 116.12 kg Yaniv Hernandez ATHLETIC COACH Work Phone: [facility] 07-22-2024 10:48-0500 Body mass index (BMI) [Ratio] 37.13 kg/m2 Erin Chapman SALES AGENT [employer] INS[employer]ANCE-EAR NOSE THROAT PHYSICIAN Work Phone: [facility] 07-22-2024 10:48-0500 Body weight 117.39 kg Erin Chapman SALES AGENT [employer] INS[employer]ANCE-EAR NOSE THROAT PHYSICIAN Work Phone: [facility] 07-22-2024 10:48-0500 Diastolic blood pressure 70 mm[Hg] Erin Chapman SALES AGENT CAS[employer] INSURANCE-EAR NOSE THROAT PHYSICIAN Work Phone: [facility] 07-22-2024 10:48-0500 Heart rate 68 /min Erin Chapman SALES AGENT CAS[employer] INSURANCE-EAR NOSE THROAT PHYSICIAN Work Phone: [facility] 07-22-2024 10:48-0500 Systolic blood pressure 135 mm[Hg] Erin Chapman SALES AGENT CAS[employer] INSURANCE-EAR NOSE THROAT PHYSICIAN Work Phone: [facility] 06-16-2024 09:52-0500 Body height 179.5 cm William Howell MD, PhD Work Phone: [facility] 06-16-2024 09:52-0500 Body mass index (BMI) [Ratio] 36 kg/m2 William Howell MD, PhD Work Phone: [facility] 06-16-2024 09:52-0500 Body temperature 98.01 [degF] William Howell MD, PhD Work Phone: [facility] 06-16-2024 09:52-0500 Body weight 116 kg William Howell MD, PhD Work Phone: [facility] 06-16-2024 09:52-0500 Diastolic blood pressure 79 mm[Hg] William Howell MD, PhD Work Phone: [facility] Comment on above: Left arm sitting 06-16-2024 09:52-0500 Heart rate 73 /min William Howell MD, PhD Work Phone: [facility] 06-16-2024 09:52-0500 Respiratory rate 16 /min William Howell MD, PhD Work Phone: [facility] 06-16-2024 09:52-0500 SaO2% (BldA) [Mass fraction] 98 % William Howell MD, PhD Work Phone: [facility] 06-16-2024 09:52-0500 Systolic blood pressure 144 mm[Hg] William Howell MD, PhD Work Phone: [facility] Comment on above: Left arm sitting 05-31-2024 15:37-0500 Body height 179.1 cm Rolf Aicmarieholz ATHLETIC COACH Work Phone: [facility] 05-31-2024 15:37-0500 Body mass index (BMI) [Ratio] 36.18 kg/m2 Rolf Aichholz ATHLETIC COACH Work Phone: [facility] 05-31-2024 15:37-0500 Body temperature 98.1 [degF] Rolf Aichholz ATHLETIC COACH Work Phone: [facility] 05-31-2024 15:37-0500 Body weight 116.03 kg Rolf Aichholz ATHLETIC COACH Work Phone: [facility] 05-31-2024 15:37-0500 Diastolic blood pressure 80 mm[Hg] Rolf Aichholz ATHLETIC COACH Work Phone: [facility] 05-31-2024 15:37-0500 Heart rate 69 /min Rolf Aichholz ATHLETIC COACH Work Phone: [facility] 05-31-2024 15:37-0500 Respiratory rate 18 /min Rolf Aichholz ATHLETIC COACH Work Phone: [facility] 05-31-2024 15:37-0500 SaO2% (BldA) [Mass fraction] 96 % Rolf Aichholz ATHLETIC COACH Work Phone: [facility] 05-31-2024 15:37-0500 Systolic blood pressure 120 mm[Hg] Rolf Aichholz ATHLETIC COACH Work Phone: [facility] 04-27-2024 15:26-0500 Diastolic blood pressure 90 mm[Hg] Rolf Chung ATHLETIC COACH Work Phone: [facility] 04-27-2024 15:26-0500 Systolic blood pressure 140 mm[Hg] Rolf Chung ATHLETIC COACH Work Phone: [facility] 04-27-2024 15:21-0500 Body height 179.1 cm Rolf Chung ATHLETIC COACH Work Phone: [facility] 04-27-2024 15:21-0500 Body mass index (BMI) [Ratio] 36.95 kg/m2 Rolf Chung ATHLETIC COACH Work Phone: [facility] 04-27-2024 15:21-0500 Body temperature 98.1 [degF] Rolf Chung ATHLETIC COACH Work Phone: [facility] 04-27-2024 15:21-0500 Body weight 118.48 kg Rolf Chung ATHLETIC COACH Work Phone: [facility] 04-27-2024 15:21-0500 Heart rate 66 /min Rolf Chung ATHLETIC COACH Work Phone: [facility] 04-27-2024 15:21-0500 Respiratory rate 20 /min Rolf Chung ATHLETIC COACH Work Phone: [facility] 04-27-2024 15:21-0500 SaO2% (BldA) [Mass fraction] 97 % Rolf Chung ATHLETIC COACH Work Phone: [facility] 04-16-2024 15:36-0500 Body height 177.8 cm Alexx Dalal APRN.EAR NOSE THROAT PHYSICIAN Work Phone: [facility] 04-16-2024 15:36-0500 Body mass index (BMI) [Ratio] 36.98 kg/m2 Alexx Dalal APRN.EAR NOSE THROAT PHYSICIAN Work Phone: [facility] 04-16-2024 15:36-0500 Body weight 116.9 kg Alexx Dalal APRN.EAR NOSE THROAT PHYSICIAN Work Phone: [facility] 04-16-2024 15:36-0500 Diastolic blood pressure 77 mm[Hg] Alexx Dalal SALES AGENT CASUALTY INSURANCE.EAR NOSE THROAT PHYSICIAN Work Phone: [facility] 04-16-2024 15:36-0500 Heart rate 79 /min Alexx Dalal SALES AGENT CASUALTY INSURANCE.EAR NOSE THROAT PHYSICIAN Work Phone: [facility] 04-16-2024 15:36-0500 SaO2% (BldA) [Mass fraction] 98 % Alexx Dalal SALES AGENT CASUALTY INSURANCE.EAR NOSE THROAT PHYSICIAN Work Phone: [facility] 04-16-2024 15:36-0500 Systolic blood pressure 121 mm[Hg] Alexx Dalal SALES AGENT CASUALTY INSURANCE.EAR NOSE THROAT PHYSICIAN Work Phone: [facility] 03-19-2024 10:00-0400 Diastolic blood pressure 88 mm[Hg] Rafael Hahn MD Work Phone: [facility] 03-19-2024 10:00-0400 Heart rate 69 /min Rafael Hahn MD Work Phone: [facility] 03-19-2024 10:00-0400 SaO2% (BldA) [Mass fraction] 96 % Rafael Hahn MD Work Phone: [facility] 03-19-2024 10:00-0400 Systolic blood pressure 150 mm[Hg] Rafael Hahn MD Work Phone: [facility] 03-19-2024 07:31-0400 Body temperature 97 [degF] Rafael Hahn MD Work Phone: [facility] 03-19-2024 07:31-0400 Respiratory rate 18 /min Rafael Hahn MD Work Phone: [facility] 03-17-2024 11:32-0400 Body mass index (BMI) [Ratio] 37.36 kg/m2 William Howell MD, PhD Work Phone: [facility] 03-17-2024 11:32-0400 Body temperature 97.2 [degF] William Howell MD, PhD Work Phone: [facility] 03-17-2024 11:32-0400 Body weight 118.1 kg William Howell MD, PhD Work Phone: [facility] 03-17-2024 11:32-0400 Diastolic blood pressure 83 mm[Hg] William Howell MD, PhD Work Phone: [facility] 03-17-2024 11:32-0400 Heart rate 73 /min William Howell MD, PhD Work Phone: [facility] 03-17-2024 11:32-0400 Respiratory rate 20 /min William Howell MD, PhD Work Phone: [facility] 03-17-2024 11:32-0400 SaO2% (BldA) [Mass fraction] 96 % William Howell MD, PhD Work Phone: [facility] 03-17-2024 11:32-0400 Systolic blood pressure 156 mm[Hg] William Howell MD, PhD Work Phone: [facility] 03-03-2024 15:46-0400 Body height 179.1 cm Rolf Chung ATHLETIC COACH Work Phone: [facility] 03-03-2024 15:46-0400 Body mass index (BMI) [Ratio] 36.64 kg/m2 Rolf Chung ATHLETIC COACH Work Phone: [facility] 03-03-2024 15:46-0400 Body temperature 98.1 [degF] Rolf Chung ATHLETIC COACH Work Phone: [facility] 03-03-2024 15:46-0400 Body weight 117.48 kg Rolf Chung ATHLETIC COACH Work Phone: [facility] 03-03-2024 15:46-0400 Diastolic blood pressure 80 mm[Hg] Rolf Chung ATHLETIC COACH Work Phone: [facility] 03-03-2024 15:46-0400 Heart rate 95 /min Rolf hCung ATHLETIC COACH Work Phone: [facility] 03-03-2024 15:46-0400 Respiratory rate 19 /min Rolf Chung ATHLETIC COACH Work Phone: [facility] 03-03-2024 15:46-0400 SaO2% (BldA) [Mass fraction] 96 % Rofl Chung ATHLETIC COACH Work Phone: [facility] 03-03-2024 15:46-0400 Systolic blood pressure 126 mm[Hg] Rolf Chung ATHLETIC COACH Work Phone: [facility] 12-24-2023 09:19-0400 Body mass index (BMI) [Ratio] 37.93 kg/m2 Deb Menard APRN.EAR NOSE THROAT PHYSICIAN Work Phone: [facility] 12-24-2023 09:19-0400 Body temperature 98.2 [degF] Deb Menard APRN.EAR NOSE THROAT PHYSICIAN Work Phone: [facility] 12-24-2023 09:19-0400 Body weight 119.9 kg Deb Menard APRN.EAR NOSE THROAT PHYSICIAN Work Phone: [facility] Comment on above: shoes on 12-24-2023 09:19-0400 Diastolic blood pressure 67 mm[Hg] Deb Menard APRN.EAR NOSE THROAT PHYSICIAN Work Phone: [facility] 12-24-2023 09:19-0400 Heart rate 60 /min Deb Menard APRN.EAR NOSE THROAT PHYSICIAN Work Phone: [facility] 12-24-2023 09:19-0400 Respiratory rate 18 /min Deb Menard APRN.EAR NOSE THROAT PHYSICIAN Work Phone: [facility] 12-24-2023 09:19-0400 SaO2% (BldA) [Mass fraction] 96 % Deb Menard SALES AGENT CASUALTY INSURANCE.EAR NOSE THROAT PHYSICIAN Work Phone: [facility] 12-24-2023 09:19-0400 Systolic blood pressure 143 mm[Hg] Deb Menard APRN.CNP Work Phone: [facility] 10-29-2023 16:06-0400 Body height 177.8 cm Yan Durham MD Work Phone: [facility] 10-29-2023 16:06-0400 Body mass index (BMI) [Ratio] 38.31 kg/m2 Yan Durham MD Work Phone: [facility] 10-29-2023 16:06-0400 Body weight 121.11 kg Yan Durham MD Work Phone: [facility] 10-29-2023 16:06-0400 Diastolic blood pressure 76 mm[Hg] Yan Durham MD Work Phone: [employer] 10-29-2023 16:06-0400 Heart rate 67 /min Yan Durham MD Work Phone: [facility] [employer] 10-29-2023 16:06-0400 SaO2% (BldA) [Mass fraction] 96 % Yan Durham MD Work Phone: [employer] [employer] 10-29-2023 16:06-0400 Systolic blood pressure 142 mm[Hg] Yan Durham MD Work Phone: [facility] 10-01-2023 09:17-0400 Body mass index (BMI) [Ratio] 38.02 kg/m2 William Howell MD, PhD Work Phone: [facility] 10-01-2023 09:17-0400 Body temperature 96.8 [degF] William Howell MD, PhD Work Phone: [facility] 10-01-2023 09:17-0400 Body weight 120.2 kg William Howell MD, PhD Work Phone: [facility] Comment on above: shoes on 10-01-2023 09:17-0400 Diastolic blood pressure 70 mm[Hg] William Howell MD, PhD Work Phone: [facility] 10-01-2023 09:17-0400 Heart rate 59 /min William Howell MD, PhD Work Phone: [facility] Comment on above: provider notified 10-01-2023 09:17-0400 Respiratory rate 18 /min William Howell MD, PhD Work Phone: [facility] 10-01-2023 09:17-0400 SaO2% (BldA) [Mass fraction] 10 % William Howell MD, PhD Work Phone: [facility] 10-01-2023 09:17-0400 Systolic blood pressure 143 mm[Hg] William Howell MD, PhD Work Phone: [facility] 08-29-2023 07:50-0400 Body weight 122 kg Aelxx Dalal SALES AGENT CASUALTY INSURANCE.EAR NOSE THROAT PHYSICIAN Work Phone: [facility] 08-29-2023 07:50-0400 Diastolic blood pressure 62 mm[Hg] Alexx Dalal SALES AGENT CASUALTY INSURANCE.EAR NOSE THROAT PHYSICIAN Work Phone: [facility] 08-29-2023 07:50-0400 Heart rate 61 /min Alexx Dalal SALES AGENT CASUALTY INSURANCE.EAR NOSE THROAT PHYSICIAN Work Phone: [facility] 08-29-2023 07:50-0400 SaO2% (BldA) [Mass fraction] 97 % Alexx Dalal SALES AGENT CASUALTY INSURANCE.EAR NOSE THROAT PHYSICIAN Work Phone: [facility] 08-29-2023 07:50-0400 Systolic blood pressure 120 mm[Hg] Alexx Dalal SALES AGENT CASUALTY INSURANCE.EAR NOSE THROAT PHYSICIAN Work Phone: [facility] 07-09-2023 14:48-0500 Body temperature 97.59 [degF] William Howell MD, PhD Work Phone: [facility] 07-09-2023 14:48-0500 Body weight 124.9 kg William Howell MD, PhD Work Phone: [facility] 07-09-2023 14:48-0500 Diastolic blood pressure 73 mm[Hg] William Howell MD, PhD Work Phone: [facility] 07-09-2023 14:48-0500 Heart rate 71 /min William Howell MD, PhD Work Phone: [facility] 07-09-2023 14:48-0500 Respiratory rate 18 /min William Howell MD, PhD Work Phone: [facility] 07-09-2023 14:48-0500 SaO2% (BldA) [Mass fraction] 94 % William Howell MD, PhD Work Phone: [facility] 07-09-2023 14:48-0500 Systolic blood pressure 156 mm[Hg] William Howell MD, PhD Work Phone: [facility] 06-30-2023 09:54-0500 Body height 177.8 cm Yan Durham MD Work Phone: [facility] [employer] 06-30-2023 09:54-0500 Body mass index (BMI) [Ratio] 39.31 kg/m2 Yan Durham MD Work Phone: [facility] [employer] 06-30-2023 09:54-0500 Body weight 124.29 kg Yan Durham MD Work Phone: [facility] [employer] 06-30-2023 09:54-0500 Diastolic blood pressure 88 mm[Hg] [facility] 06-30-2023 09:54-0500 Heart rate 75 /min Yan Durham MD Work Phone: [facility] [employer] 06-30-2023 09:54-0500 SaO2% (BldA) [Mass fraction] 98 % Yan Durham MD Work Phone: [facility] 06-30-2023 09:54-0500 Systolic blood pressure 150 mm[Hg] Yan Durham MD Work Phone: [facility] 04-16-2023 11:49-0500 Body height 177.8 cm William Howell MD, PhD Work Phone: [facility] 04-16-2023 11:49-0500 Body temperature 97.81 [degF] William Howell MD, PhD Work Phone: [facility] 04-16-2023 11:49-0500 Body weight 126.1 kg William Howell MD, PhD Work Phone: [facility] 04-16-2023 11:49-0500 Diastolic blood pressure 89 mm[Hg] William Howell MD, PhD Work Phone: [facility] 04-16-2023 11:49-0500 Heart rate 74 /min William Howell MD, PhD Work Phone: [facility] 04-16-2023 11:49-0500 Respiratory rate 14 /min William Howell MD, PhD Work Phone: [facility] 04-16-2023 11:49-0500 SaO2% (BldA) [Mass fraction] 99 % William Howell MD, PhD Work Phone: [facility] 04-16-2023 11:49-0500 Systolic blood pressure 161 mm[Hg] William Howell MD, PhD Work Phone: [facility] 01-22-2023 09:32-0400 Body temperature 97.39 [degF] William Howell MD, PhD Work Phone: [facility] 01-22-2023 09:32-0400 Body weight 124.74 kg William Howell MD, PhD Work Phone: [facility] 01-22-2023 09:32-0400 Diastolic blood pressure 82 mm[Hg] William Howell MD, PhD Work Phone: [facility] 01-22-2023 09:32-0400 Heart rate 82 /min William Howell MD, PhD Work Phone: [facility] 01-22-2023 09:32-0400 Respiratory rate 18 /min iWlliam Howell MD, PhD Work Phone: [facility] 01-22-2023 09:32-0400 SaO2% (BldA) [Mass fraction] 99 % William Howell MD, PhD Work Phone: [facility] 01-22-2023 09:32-0400 Systolic blood pressure 151 mm[Hg] William Howell MD, PhD Work Phone: [facility] 10-30-2022 11:46-0400 Body temperature 98.4 [degF] William Howell MD, PhD Work Phone: [facility] 10-30-2022 11:46-0400 Body weight 124.29 kg William Howell MD, PhD Work Phone: [facility] 10-30-2022 11:46-0400 Diastolic blood pressure 78 mm[Hg] William Howell MD, PhD Work Phone: [facility] 10-30-2022 11:46-0400 Heart rate 61 /min William Howell MD, PhD Work Phone: [facility] 10-30-2022 11:46-0400 Respiratory rate 18 /min William Howell MD, PhD Work Phone: [facility] 10-30-2022 11:46-0400 SaO2% (BldA) [Mass fraction] 98 % William Howell MD, PhD Work Phone: [facility] 10-30-2022 11:46-0400 Systolic blood pressure 173 mm[Hg] William Howell MD, PhD Work Phone: [facility] 10-15-2022 13:44-0400 Body height 179.1 cm Alexx Arteagaall SALES AGENT CASUALTY INSURANCE.EAR NOSE THROAT PHYSICIAN Work Phone: [facility] 10-15-2022 13:44-0400 Body weight 124.29 kg Alexx Arteagaall SALES AGENT CASUALTY INSURANCE.EAR NOSE THROAT PHYSICIAN Work Phone: [facility] 10-15-2022 13:44-0400 Diastolic blood pressure 78 mm[Hg] Alexx Arteagaall SALES AGENT CASUALTY INSURANCE.EAR NOSE THROAT PHYSICIAN Work Phone: [facility] 10-15-2022 13:44-0400 Heart rate 72 /min Alexx Arteagaall SALES AGENT CASUALTY INSURANCE.EAR NOSE THROAT PHYSICIAN Work Phone: [facility] 10-15-2022 13:44-0400 Systolic blood pressure 134 mm[Hg] Alexx Arteagaall SALES AGENT CASUALTY INSURANCE.EAR NOSE THROAT PHYSICIAN Work Phone: [facility] 08-05-2022 09:38-0500 Body height 177.8 cm William Howell MD, PhD Work Phone: [facility] 08-05-2022 09:38-0500 Body temperature 98.1 [degF] William Howell MD, PhD Work Phone: [facility] 08-05-2022 09:38-0500 Body weight 126.1 kg William Howell MD, PhD Work Phone: [facility] 08-05-2022 09:38-0500 Diastolic blood pressure 85 mm[Hg] William Howell MD, PhD Work Phone: [facility] 08-05-2022 09:38-0500 Heart rate 62 /min William Howell MD, PhD Work Phone: [facility] 08-05-2022 09:38-0500 Respiratory rate 16 /min William oHwell MD, PhD Work Phone: [facility] 08-05-2022 09:38-0500 SaO2% (BldA) [Mass fraction] 97 % William Howell MD, PhD Work Phone: [facility] 08-05-2022 09:38-0500 Systolic blood pressure 170 mm[Hg] William Howell MD, PhD Work Phone: [facility] 07-15-2022 15:50-0500 Body weight 128.82 kg Alexx Scot SALES AGENT CASUALTY INSURANCE.EAR NOSE THROAT PHYSICIAN Work Phone: [facility] 07-15-2022 15:50-0500 Diastolic blood pressure 80 mm[Hg] Alexx Scot SALES AGENT CASUALTY INSURANCE.EAR NOSE THROAT PHYSICIAN Work Phone: [facility] 07-15-2022 15:50-0500 Heart rate 72 /min Alexx Scot SALES AGENT CASUALTY INSURANCE.EAR NOSE THROAT PHYSICIAN Work Phone: [facility] 07-15-2022 15:50-0500 Systolic blood pressure 160 mm[Hg] Alexx Scot SALES AGENT CASUALTY INSURANCE.EAR NOSE THROAT PHYSICIAN Work Phone: [facility] 03-19-2022 12:08-0400 Body weight 120.66 kg Alexx Scot SALES AGENT CASUALTY INSURANCE.EAR NOSE THROAT PHYSICIAN Work Phone: [facility] 03-19-2022 12:08-0400 Diastolic blood pressure 90 mm[Hg] Alexx Scot SALES AGENT CASUALTY INSURANCE.EAR NOSE THROAT PHYSICIAN Work Phone: [facility] 03-19-2022 12:08-0400 Heart rate 68 /min Alexx Scot SALES AGENT CASUALTY INSURANCE.EAR NOSE THROAT PHYSICIAN Work Phone: [facility] 03-19-2022 12:08-0400 Systolic blood pressure 150 mm[Hg] Alexx Scot SALES AGENT CASUALTY INSURANCE.EAR NOSE THROAT PHYSICIAN Work Phone: [facility] 02-18-2022 11:11-0400 Body height 178.5 cm William Howell MD, PhD Work Phone: [facility] 02-18-2022 11:11-0400 Body temperature 97.5 [degF] William Howell MD, PhD Work Phone: [facility] 02-18-2022 11:11-0400 Body weight 121.75 kg William Howell MD, PhD Work Phone: [facility] 02-18-2022 11:11-0400 Diastolic blood pressure 93 mm[Hg] William Howell MD, PhD Work Phone: [facility] 02-18-2022 11:11-0400 Heart rate 62 /min William Howell MD, PhD Work Phone: [facility] 02-18-2022 11:11-0400 Respiratory rate 20 /min William Howell MD, PhD Work Phone: [facility] 02-18-2022 11:11-0400 SaO2% (BldA) [Mass fraction] 98 % William Howell MD, PhD Work Phone: [facility] 02-18-2022 11:11-0400 Systolic blood pressure 154 mm[Hg] William Howell MD, PhD Work Phone: [facility] 11-26-2021 11:37-0400 Body temperature 97.2 [degF] William Howell MD, PhD Work Phone: [facility] 11-26-2021 11:37-0400 Body weight 124.24 kg William Howell MD, PhD Work Phone: [facility] 11-26-2021 11:37-0400 Diastolic blood pressure 88 mm[Hg] William Howell MD, PhD Work Phone: [facility] 11-26-2021 11:37-0400 Heart rate 58 /min William Howell MD, PhD Work Phone: [facility] 11-26-2021 11:37-0400 Respiratory rate 18 /min William Howell MD, PhD Work Phone: [facility] 11-26-2021 11:37-0400 SaO2% (BldA) [Mass fraction] 99 % William Howell MD, PhD Work Phone: [facility] 11-26-2021 11:37-0400 Systolic blood pressure 150 mm[Hg] William Howell MD, PhD Work Phone: [facility] Encounters Encounter Date Encounter Type Care Provider Facility Start: 02-18-2025 End: 02-18-2025 Office outpatient visit 25 minutes Yan Durham MD Work Phone: [facility] Comment on above: Primary hypertension (Primary Dx); Palpitations; Cardiomyopathy, hypertrophic (CMS-HCC); LVH (left ventricular hypertrophy); GENET (obstructive sleep apnea); Atrial flutter (CMS-HCC); Tachycardia; Nonrheumatic pulmonary valve stenosis; Essential hypertension Start: 02-17-2025 End: 02-17-2025 ambulatory Melisa Rocha CROWN ASSEMBLY MACHINE OPERATOR Work Phone: [facility] Comment on above: Tear of left suprasp inatus tendon (Primary Dx); Left bicipital tenosynovitis; Sprain of left shoulder, unspecified shoulder sprain type, initial encounter; Sprain of left shoulder, initial encounter Start: 02-04-2025 End: 02-04-2025 Bamboo flowsdawn Rocha CROWN ASSEMBLY MACHINE OPERATOR Work Phone: [facility] [employer] Start: 02-04-2025 End: 02-04-2025 Bamboo flowsheet Melisa Rocha CROWN ASSEMBLY MACHINE OPERATOR Work Phone: [facility] Start: 02-04-2025 End: 02-04-2025 ambulatory Melisa Rocha CROWN ASSEMBLY MACHINE OPERATOR Work Phone: [facility] Comment on above: Tear of left suprasp inatus tendon (Primary Dx); Left bicipital tenosynovitis; Sprain of left shoulder, unspecified shoulder sprain type, initial encounter Start: 02-02-2025 ambulatory ROLF HENDRICKSONMarieYADIELLurdes [facility] Start: 02-01-2025 End: 02-01-2025 ambulatory Ava Aldana CROWN ASSEMBLY MACHINE OPERATOR [facility] Comment on above: Tear of left suprasp inatus tendon (Primary Dx); Left bicipital tenosynovitis; Sprain of left shoulder, unspecified shoulder sprain type, initial encounter Start: 02-01-2025 End: 02-01-2025 Bamboo flowsheet Ava Aldana CROWN ASSEMBLY MACHINE OPERATOR [facility] Start: 02-01-2025 End: 02-01-2025 Bamboo flowsheet Ava Aldana CROWN ASSEMBLY MACHINE OPERATOR [facility] Start: 01-27-2025 End: 01-27-2025 ambulatory Melisa Rocha CROWN ASSEMBLY MACHINE OPERATOR Work Phone: [facility] [place] [facility] Comment on above: Tear of left suprasp inatus tendon (Primary Dx); Left bicipital tenosynovitis; Sprain of left shoulder, unspecified shoulder sprain type, initial encounter Start: 01-27-2025 End: 01-27-2025 Bamboo flowsheet Melisatali Rocha CROWN ASSEMBLY MACHINE OPERATOR [facility] Start: 01-27-2025 End: 01-27-2025 Bamboo flowsheet Melisatali Rocha CROWN ASSEMBLY MACHINE OPERATOR Work Phone: [facility] Start: 01-24-2025 End: 01-24-2025 Bamboo flowsheet Yaniv Hernandez ATHLETIC COACH Work Phone: [facility] Start: 01-24-2025 End: 01-24-2025 Bamboo flowsheet Yaniv Hernandez ATHLETIC COACH Work Phone: [facility] Start: 01-24-2025 End: 01-24-2025 Office outpatient visit 15 minutes Yaniv Hernandez ATHLETIC COACH Work Phone: [facility] Comment on above: Sprain of left shoul hal, initial encounter (Primary Dx); Tear of left supraspinatus tendon Start: 01-24-2025 End: 01-24-2025 ambulatory Melisa Rocha CROWN ASSEMBLY MACHINE OPERATOR Work Phone: [facility] [employer] [place] Comment on above: Tear of left suprasp inatus tendon (Primary Dx); Left bicipital tenosynovitis; Sprain of left shoulder, unspecified shoulder sprain type, initial encounter Start: 01-18-2025 End: 01-19-2025 ambulatory Lupillo Bahena PT Work Phone: [facility] Comment on above: Tear of left suprasp inatus tendon (Primary Dx); Left bicipital tenosynovitis; Sprain of left shoulder, unspecified shoulder sprain type, initial encounter Start: 01-17-2025 End: 01-17-2025 ambulatory ROLF CHUNG Not Available Start: 01-17-2025 End: 01-17-2025 Office outpatient visit 25 minutes Rolf Chugn ATHLETIC COACH Work Phone: [facility] Comment on above: Gastroesophageal ref lux disease without esophagitis (Primary Dx); Essential (primary) hypertension ; Type 2 diabetes mellitus with hyperglycemia, with long-term current use of insulin (HCC); Morbid (severe) obesity due to excess calories ([facility]-HCC) Start: 01-17-2025 End: 01-17-2025 Bamboo flowsheet Rolf Chung ATHLETIC COACH Work Phone: [facility] [employer] Start: 01-17-2025 End: 01-17-2025 Bamboo flowsheet Rolf Chung ATHLETIC COACH Work Phone: [facility] Start: 01-13-2025 End: 01-13-2025 ambulatory Lupillo Bahena PT Work Phone: [facility] [employer] [place] Comment on above: Tear of left suprasp inatus tendon (Primary Dx); Left bicipital tenosynovitis; Sprain of left shoulder, unspecified shoulder sprain type, initial encounter Start: 01-13-2025 End: 01-13-2025 Bamboo flowsheet Lupillo Bahena PT Work Phone: [facility] Start: 01-13-2025 End: 01-13-2025 Bamboo flowsheet Lupillo Bahena PT Work Phone: [facility] Glad to Have You [facility] Start: 01-11-2025 End: 01-11-2025 ambulatory Ava Aldana CROWN ASSEMBLY MACHINE OPERATOR [facility] Comment on above: Tear of left suprasp inatus tendon (Primary Dx); Left bicipital tenosynovitis; Sprain of left shoulder, unspecified shoulder sprain type, initial encounter Start: 01-05-2025 End: 01-05-2025 ambulatory Melisa Rocha CROWN ASSEMBLY MACHINE OPERATOR Work Phone: [facility] Comment on above: Tear of left suprasp inatus tendon (Primary Dx); Left bicipital tenosynovitis; Sprain of left shoulder, unspecified shoulder sprain type, initial encounter Start: 01-04-2025 End: 01-04-2025 ambulatory Lupillo Bahena PT Work Phone: [facility] Comment on above: Tear of left suprasp inatus tendon (Primary Dx); Left bicipital tenosynovitis; Sprain of left shoulder, unspecified shoulder sprain type, initial encounter; Sprain of left shoulder, initial encounter Start: 12-23-2024 End: 12-23-2024 ambulatory ROLF ANA MARIA CHUNG Facility:[facility] Start: 12-23-2024 End: 12-24-2024 Clinisync Result Encounter Generic External Data Provider [facility] External Department Unsolicited Start: 12-23-2024 End: 12-24-2024 Clinisync Result Encounter Generic External Data Provider [facility] External Department Unsolicited Start: 12-22-2024 End: 12-22-2024 Chart abstracting Tarah Harrington Research Coordinator Hematology/Oncology Comment on above: Research ([id number] / [id number] / [id number]) Start: 12-22-2024 End: 12-22-2024 Clinisync Result Encounter Generic External Data Provider [facility] External Department Unsolicited Start: 12-22-2024 End: 12-22-2024 Clinisync Result Encounter Generic External Data Provider [facility] External Department Unsolicited Start: 12-22-2024 End: 12-22-2024 ambulatory WLILIAM SILVEIRAKHERJEE Facility:[facility] Start: 12-22-2024 End: 12-22-2024 Nursing evaluation of patient and report Teresa Pierce doorshaker/Oncology Comment on above: CML (chronic myeloid leukemia) (HCC) (Primary Dx) Start: 12-22-2024 End: 12-22-2024 ambulatory ROLF CHUNG Facility:[facility] Start: 12-13-2024 End: 12-13-2024 Bamboo flowsheet Yaniv Hernandez ATHLETIC COACH Work Phone: [facility] Start: 12-13-2024 End: 12-13-2024 Bamboo flowsheet Yaniv Hernandez ATHLETIC COACH Work Phone: [facility] Start: 12-13-2024 End: 12-13-2024 Office outpatient visit 15 minutes Yaniv Hernandez ATHLETIC COACH Work Phone: [facility] Comment on above: Sprain of left shoul hal, initial encounter (Primary Dx) Start: 12-13-2024 End: 12-13-2024 ambulatory YANIV HERNANDEZ Not Available Start: 12-07-2024 End: 12-07-2024 Office outpatient visit 25 minutes Rolf Chung ATHLETIC COACH Work Phone: [facility] Comment on above: Type 2 diabetes aris itus with hyperglycemia, with long-term current use of insulin (HCC) (Primary Dx); Type 2 diabetes mellitus with diabetic polyneuropathy, with long-term current use of insulin (HCC); Essential (primary) hypertension ; Morbid (severe) obesity due to excess calories ([facility]-HCC); Screening for prostate cancer; Primary hypertension ; Mixed hyperlipidemia Start: 12-07-2024 End: 12-07-2024 ambulatory ROLF CHUNG Not Available Start: 12-07-2024 End: 12-07-2024 Bamboo flowsheet Rolf Chung ATHLETIC COACH Work Phone: [facility] Start: 12-07-2024 End: 12-07-2024 Bamboo flowsheet Rolf Chung ATHLETIC COACH Work Phone: [facility] Start: 11-18-2024 End: 11-18-2024 ambulatory Lupillo Bahena PT Work Phone: [facility] Comment on above: Tear of left suprasp inatus tendon (Primary Dx); Left bicipital tenosynovitis; Sprain of left shoulder, unspecified shoulder sprain type, initial encounter Start: 11-18-2024 End: 11-18-2024 Bamboo flowsheet Lupillo Bahena PT Work Phone: [facility] Start: 11-18-2024 End: 11-18-2024 Bamboo flowsheet Lupillo Bahena PT Work Phone: [facility] Start: 11-16-2024 End: 11-16-2024 ambulatory Melisa Rocha CROWN ASSEMBLY MACHINE OPERATOR Work Phone: [facility] Comment on above: Tear of left suprasp inatus tendon (Primary Dx); Left bicipital tenosynovitis; Sprain of left shoulder, unspecified shoulder sprain type, initial encounter Start: 11-16-2024 End: 11-16-2024 Bamboo flowsheet Melisatail Rocha CROWN ASSEMBLY MACHINE OPERATOR Work Phone: [facility] Start: 11-16-2024 End: 11-16-2024 Bamboo flowsheet Melisa Rocha CROWN ASSEMBLY MACHINE OPERATOR Work Phone: [facility] Start: 11-10-2024 End: 11-10-2024 Refill Rolf Chung ATHLETIC COACH Work Phone: [facility] Comment on above: Type 2 diabetes aris itus with hyperglycemia, with long-term current use of insulin ([facility]) (Primary Dx) Start: 11-08-2024 End: 11-08-2024 Bamboo flowsheet Yaniv Hernandez ATHLETIC COACH Work Phone: [facility] Start: 11-08-2024 End: 11-08-2024 Bamboo flowsheet Yaniv Hernandez ATHLETIC COACH Work Phone: [facility] Start: 11-08-2024 End: 11-08-2024 ambulatory Melisa Rocha CROWN ASSEMBLY MACHINE OPERATOR Work Phone: [facility] Comment on above: Tear of left suprasp inatus tendon (Primary Dx); Left bicipital tenosynovitis; Sprain of left shoulder, unspecified shoulder sprain type, initial encounter Start: 11-08-2024 End: 11-08-2024 Postop follow up visit related to original px Yaniv Hernandez ATHLETIC COACH Work Phone: [facility] Comment on above: Sprain of left shoul hal, initial encounter (Primary Dx); Tear of left supraspinatus tendon Start: 11-08-2024 End: 11-08-2024 ambulatory YANIV HERNANDEZ Not Available Start: 11-05-2024 End: 11-05-2024 Bamboo [employer]da[employer] Rocha CROWN ASSEMBLY MACHINE OPERATOR Work Phone: [facility] Start: 11-05-2024 End: 11-05-2024 Bamboo [employer] Rocha CROWN ASSEMBLY MACHINE OPERATOR Work Phone: [facility] Start: 11-05-2024 End: 11-05-2024 ambulatory Melisa Rocha CROWN ASSEMBLY MACHINE OPERATOR Work Phone: [facility] Comment on above: Tear of left suprasp inatus tendon (Primary Dx); Left bicipital tenosynovitis; Sprain of left shoulder, unspecified shoulder sprain type, initial encounter Start: 11-03-2024 End: 11-03-2024 ambulatory Melisa Rocha CROWN ASSEMBLY MACHINE OPERATOR Work Phone: [facility] Comment on above: Tear of left suprasp inatus tendon (Primary Dx); Left bicipital tenosynovitis; Sprain of left shoulder, unspecified shoulder sprain type, initial encounter Start: 10-27-2024 End: 10-27-2024 Bamboo [employer] Rocha CROWN ASSEMBLY MACHINE OPERATOR Work Phone: [facility] Start: 10-27-2024 End: 10-27-2024 Bamboo [employer] Rocha CROWN ASSEMBLY MACHINE OPERATOR Work Phone: [facility] Start: 10-27-2024 End: 10-27-2024 ambulatory Melisa Rocha CROWN ASSEMBLY MACHINE OPERATOR Work Phone: [facility] Comment on above: Tear of left suprasp inatus tendon (Primary Dx); Left bicipital tenosynovitis; Sprain of left shoulder, unspecified shoulder sprain type, initial encounter Start: 10-25-2024 End: 10-25-2024 Bamboo flowsheet Melisa Rocha CROWN ASSEMBLY MACHINE OPERATOR Work Phone: [facility] Start: 10-25-2024 End: 10-25-2024 Bamboo flowsheet Melisa Rocha CROWN ASSEMBLY MACHINE OPERATOR Work Phone: [facility] Start: 10-25-2024 End: 10-25-2024 ambulatory Melisa Rocha CROWN ASSEMBLY MACHINE OPERATOR Work Phone: [facility] Comment on above: Tear of left suprasp inatus tendon (Primary Dx); Left bicipital tenosynovitis; Sprain of left shoulder, unspecified shoulder sprain type, initial encounter Start: 10-22-2024 End: 10-22-2024 Bamboo flowsheet Lupillo J Clara PT Work Phone: [facility] Start: 10-22-2024 End: 10-22-2024 Bamboo flowsheet Lupillo J Clara PT Work Phone: [facility] Start: 10-22-2024 End: 10-25-2024 ambulatory Lupillo J Clara PT Work Phone: [facility] Comment on above: Tear of left suprasp inatus tendon (Primary Dx); Left bicipital tenosynovitis; Sprain of left shoulder, unspecified shoulder sprain type, initial encounter Start: 10-21-2024 End: 10-21-2024 Telephone encounter Bria Pavon RN [facility] Comment on above: Genetic testing Start: 10-21-2024 End: 10-21-2024 Office outpatient visit 40 minutes Yan Durham MD Work Phone: [facility] Comment on above: Cardiomyopathy, hype rtrophic ([facility]-HCC) (Primary Dx); Primary hypertension Start: 10-21-2024 End: 10-21-[address] [facility] Start: 10-20-2024 End: 10-20-2024 Bamboo lino Rocha CROWN ASSEMBLY MACHINE OPERATOR Work Phone: [facility] Start: 10-20-2024 End: 10-20-2024 Bamboo lino Rocha CROWN ASSEMBLY MACHINE OPERATOR Work Phone: [facility] Start: 10-20-2024 End: 10-20-2024 ambulatory Melisa Rocha CROWN ASSEMBLY MACHINE OPERATOR Work Phone: [facility] Comment on above: Tear of left suprasp inatus tendon (Primary Dx); Left bicipital tenosynovitis; Sprain of left shoulder, unspecified shoulder sprain type, initial encounter Start: 10-18-2024 End: 10-18-2024 Bamboo lino Rocha CROWN ASSEMBLY MACHINE OPERATOR Work Phone: [facility] Start: 10-18-2024 End: 10-18-2024 Bamboo lino Rocha CROWN ASSEMBLY MACHINE OPERATOR Work Phone: [facility] Start: 10-18-2024 End: 10-18-2024 ambulatory Melisa Rocha CROWN ASSEMBLY MACHINE OPERATOR Work Phone: [facility] Comment on above: Tear of left suprasp inatus tendon (Primary Dx); Left bicipital tenosynovitis; Sprain of left shoulder, unspecified shoulder sprain type, initial encounter Start: 10-15-2024 End: 10-15-2024 Bamboo lino Rocha CROWN ASSEMBLY MACHINE OPERATOR Work Phone: [facility] Start: 10-15-2024 End: 10-15-2024 Bamboo lino Rocha CROWN ASSEMBLY MACHINE OPERATOR Work Phone: [facility] Start: 10-15-2024 End: 10-15-2024 ambulatory Melisa Rocha CROWN ASSEMBLY MACHINE OPERATOR Work Phone: [facility] Comment on above: Tear of left suprasp inatus tendon (Primary Dx); Left bicipital tenosynovitis; Sprain of left shoulder, unspecified shoulder sprain type, initial encounter Start: 10-13-2024 End: 10-13-2024 Bamboo flowsheet Melisa Rocha CROWN ASSEMBLY MACHINE OPERATOR Work Phone: [facility] Start: 10-13-2024 End: 10-13-2024 Bamboo flowsheet Melisa Rocha CROWN ASSEMBLY MACHINE OPERATOR Work Phone: [facility] Start: 10-13-2024 End: 10-13-2024 ambulatory Melisa Rocha CROWN ASSEMBLY MACHINE OPERATOR Work Phone: [facility] Comment on above: Tear of left suprasp inatus tendon (Primary Dx); Left bicipital tenosynovitis; Sprain of left shoulder, unspecified shoulder sprain type, initial encounter Start: 10-11-2024 End: 10-11-2024 Bamboo flowsheet Lupillo Abiodun Clara PT Work Phone: [facility] Start: 10-11-2024 End: 10-11-2024 Bamboo flowsheet Lupillo Abiodun Clara PT Work Phone: [facility] Start: 10-11-2024 End: 10-11-2024 ambulatory Lupillo Abiodun Clara PT Work Phone: [facility] Comment on above: Tear of left suprasp inatus tendon (Primary Dx); Left bicipital tenosynovitis; Sprain of left shoulder, unspecified shoulder sprain type, initial encounter Start: 10-06-2024 End: 10-06-2024 Bamboo flowsheet Melisa Rocha CROWN ASSEMBLY MACHINE OPERATOR Work Phone: [facility] Start: 10-06-2024 End: 10-06-2024 Bamboo flowsheet Melisa Rocha CROWN ASSEMBLY MACHINE OPERATOR Work Phone: [facility] Start: 10-06-2024 End: 10-06-2024 ambulatory Melisa Rocha CROWN ASSEMBLY MACHINE OPERATOR Work Phone: [facility] Comment on above: Tear of left suprasp inatus tendon (Primary Dx); Left bicipital tenosynovitis; Sprain of left shoulder, unspecified shoulder sprain type, initial encounter Start: 10-05-2024 End: 10-18-2024 Orders Only William Howell MD, PhD Work Phone: Hematology/Oncology Comment on above: CML (chronic myelocy tic leukemia) (HCC) (Primary Dx) Start: 10-04-2024 End: 10-04-2024 Bamboo flowsheet Melisa Rocha CROWN ASSEMBLY MACHINE OPERATOR Work Phone: [facility] Start: 10-04-2024 End: 10-04-2024 Bamboo flowsheet Melisa Rocha CROWN ASSEMBLY MACHINE OPERATOR Work Phone: [facility] Start: 10-04-2024 End: 10-04-2024 ambulatory Melisa Rocha CROWN ASSEMBLY MACHINE OPERATOR Work Phone: [facility] Comment on above: Tear of left suprasp inatus tendon (Primary Dx); Left bicipital tenosynovitis; Sprain of left shoulder, unspecified shoulder sprain type, initial encounter Start: 10-01-2024 End: 10-01-2024 ambulatory Melisa Rocha CROWN ASSEMBLY MACHINE OPERATOR Work Phone: [facility] Comment on above: Tear of left suprasp inatus tendon (Primary Dx); Left bicipital tenosynovitis; Sprain of left shoulder, unspecified shoulder sprain type, initial encounter Start: 09-30-2024 End: 09-30-2024 ambulatory Melisa Rocha CROWN ASSEMBLY MACHINE OPERATOR Work Phone: [facility] Comment on above: Tear of left suprasp inatus tendon (Primary Dx); Left bicipital tenosynovitis; Sprain of left shoulder, unspecified shoulder sprain type, initial encounter Start: 09-29-2024 End: 09-29-2024 Chart abstracting Tarah Harrington Research Coordinator Hematology/Oncology Comment on above: Research (ACTG 1920 / 20-998 / C55 D1) Start: 09-29-2024 End: 09-29-2024 Clinisync Result Encounter Generic External Data Provider [facility] External Department Unsolicited Start: 09-29-2024 End: 09-29-2024 Clinisync Result Encounter Generic External Data Provider [facility] External Department Unsolicited Start: 09-29-2024 End: 09-29-2024 Nursing evaluation of patient and report Paula Tuttle doorshaker/Oncology Comment on above: CML (chronic myeloid leukemia) (HCC) (Primary Dx) Start: 09-29-2024 End: 09-29-2024 Office outpatient visit 25 minutes Magnolia Castro PA-C Work Phone: Hematology/Oncology Comment on above: CML (chronic myeloid leukemia) (HCC) (Primary Dx); Exam for clinical research Start: 09-29-2024 End: 09-29-2024 Patient encounter procedure Magnolia Castro PA-C Work Phone: [facility] Start: 09-29-2024 End: 09-29-2024 ambulatory WILLIAM HOWELL Facility:[facility] Start: 09-27-2024 End: 09-27-2024 Bamboo flowsheet Lupillo Bahena PT Work Phone: [facility] Start: 09-27-2024 End: 09-27-2024 Bamboo flowsheet Lupillo Bahena PT Work Phone: [facility] Start: 09-27-2024 End: 09-27-2024 Postop follow up visit related to original px Yaniv Hernandez ATHLETIC COACH Work Phone: [facility] Comment on above: Tear of left suprasp inatus tendon (Primary Dx) Start: 09-27-2024 End: 09-28-2024 ambulatory Lupillo Bahena PT Work Phone: [facility] Comment on above: Tear of left suprasp inatus tendon (Primary Dx); Left bicipital tenosynovitis; Sprain of left shoulder, unspecified shoulder sprain type, initial encounter Chronic myeloid leuk emia (HCC) (Primary Dx) Start: 09-23-2024 End: 09-23-2024 Bamboo flowsheet Ava Aldana PTA [facility] Start: 09-23-2024 End: 09-23-2024 Bamboo flowsheet Ava Aldana CROWN ASSEMBLY MACHINE OPERATOR [facility] Start: 09-23-2024 End: 09-23-2024 ambulatory Ava Aldana CROWN ASSEMBLY MACHINE OPERATOR [facility] Comment on above: Tear of left suprasp inatus tendon (Primary Dx); Left bicipital tenosynovitis; Sprain of left shoulder, unspecified shoulder sprain type, initial encounter Start: 09-22-2024 End: 09-22-2024 ambulatory ROLF ANA MARIA CHUNG Facility:[facility] Start: 09-22-2024 End: 09-23-2024 Clinisync Result Encounter Generic External Data Provider [facility] External Department Unsolicited Start: 09-22-2024 End: 09-23-2024 Clinisync Result Encounter Generic External Data Provider [facility] External Department Unsolicited Start: 09-20-2024 End: 09-20-2024 Bamboo flowsheet Melisa Rocha CROWN ASSEMBLY MACHINE OPERATOR Work Phone: [facility] Start: 09-20-2024 End: 09-20-2024 Bamboo flowsheet Melisa Rocha CROWN ASSEMBLY MACHINE OPERATOR Work Phone: [facility] Start: 09-20-2024 End: 09-20-2024 ambulatory Melisa Rocha CROWN ASSEMBLY MACHINE OPERATOR Work Phone: [facility] Comment on above: Tear of left suprasp inatus tendon (Primary Dx); Left bicipital tenosynovitis; Sprain of left shoulder, unspecified shoulder sprain type, initial encounter Start: 09-17-2024 End: 09-19-2024 ambulatory Lupillo Bahena PT Work Phone: [facility] Comment on above: Tear of left suprasp inatus tendon (Primary Dx); Left bicipital tenosynovitis; Sprain of left shoulder, unspecified shoulder sprain type, initial encounter Start: 09-16-2024 End: 09-16-2024 Bamboo flowsheet Ava Aldana CROWN ASSEMBLY MACHINE OPERATOR [facility] Start: 09-16-2024 End: 09-16-2024 Bamboo flowsheet Ava Aldana CROWN ASSEMBLY MACHINE OPERATOR [facility] Start: 09-16-2024 End: 09-16-2024 ambulatory Ava Aldana CROWN ASSEMBLY MACHINE OPERATOR [facility] Comment on above: Tear of left suprasp inatus tendon (Primary Dx); Left bicipital tenosynovitis; Sprain of left shoulder, unspecified shoulder sprain type, initial encounter Start: 09-15-2024 End: 09-15-2024 Chart abstracting Tarah Harrington Research Coordinator Hematology/Oncology Comment on above: Research (ACTG 1920 / 20-998 / C54 D28) Start: 09-15-2024 End: 09-15-2024 Clinisync Result Encounter Generic External Data Provider [facility] External Department Unsolicited Start: 09-15-2024 End: 09-15-2024 Clinisync Result Encounter Generic External Data Provider [facility] External Department Unsolicited Start: 09-15-2024 End: 09-15-2024 Nursing evaluation of patient and report Paula Tuttle doorshaker/Oncology Comment on above: Chronic myeloid leuk emia (HCC) (Primary Dx) Start: 09-15-2024 End: 09-15-2024 Patient encounter procedure William Howell MD, PhD Work Phone: Hematology/Oncology Start: 09-15-2024 End: 09-15-2024 ambulatory William Howell MD, PhD Work Phone: Hematology/Oncology Comment on above: CML (chronic myelocy tic leukemia) (HCC) (Primary Dx) Start: 09-13-2024 End: 09-13-2024 Bamboo flowsheet Melisa Rocha CROWN ASSEMBLY MACHINE OPERATOR Work Phone: [facility] Start: 09-13-2024 End: 09-13-2024 Bamboo flowsheet Melisa Rocha CROWN ASSEMBLY MACHINE OPERATOR Work Phone: [facility] Start: 09-13-2024 End: 09-13-2024 ambulatory Melisa Rocha CROWN ASSEMBLY MACHINE OPERATOR Work Phone: [facility] Comment on above: Tear of left suprasp inatus tendon (Primary Dx); Left bicipital tenosynovitis; Sprain of left shoulder, unspecified shoulder sprain type, initial encounter Start: 09-10-2024 End: 09-10-2024 Clinisync Result Encounter Generic External Data Provider [facility] External Department Unsolicited Start: 09-10-2024 End: 09-10-2024 Clinisync Result Encounter Generic External Data Provider [facility] External Department Unsolicited Start: 09-10-2024 ambulatory ROLF Patterson ty:[facility] Start: 09-10-2024 End: 09-15-2024 Subsequent hospital visit by physician Alan Hernandez MD Work Phone: [phone] Comment on above: 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] Chronic myeloid leuk emia (HCC) (Primary Dx) Start: 09-09-2024 End: 09-09-2024 Bamboo flowsheet Lupillo Rascon Clara PT Work Phone: [facility] Start: 09-09-2024 End: 09-09-2024 Bamboo flowsheet Lupillo Abiodun Clara PT Work Phone: [facility] Start: 09-09-2024 End: 09-09-2024 ambulatory Lupillo Bahena PT Work Phone: [facility] Comment on above: Tear of left suprasp inatus tendon (Primary Dx); Left bicipital tenosynovitis; Sprain of left shoulder, unspecified shoulder sprain type, initial encounter Start: 09-08-2024 End: 09-15-2024 Clinisync Result Encounter Generic External Data Provider [facility] External Department Unsolicited Start: 09-08-2024 End: 09-15-2024 Clinisync Result Encounter Generic External Data Provider [facility] External Department Unsolicited Start: 09-08-2024 End: 09-08-2024 Emergency department patient visit PATY FRIAS MD Facility:[facility] Start: 09-08-2024 End: 09-08-2024 Patient encounter procedure William Howell MD, PhD Work Phone: Hematology/Oncology Start: 09-08-2024 End: 09-08-2024 ambulatory William Howell MD, PhD Work Phone: Hematology/Oncology Comment on above: CML (chronic myelocy tic leukemia) (HCC) (Primary Dx) Start: 09-08-2024 End: 09-08-2024 Nursing evaluation of patient and report Paula Tuttle doorshaker/Oncology Comment on above: CML (chronic myeloid leukemia) (HCC) (Primary Dx) Start: 09-08-2024 End: 09-08-2024 ambulatory ROLF CHUNG Facility:[facility] Start: 08-31-2024 ambulatory ROLF CHUNG [facility] Start: 08-30-2024 End: 08-30-2024 ambulatory YANIV HERNANDEZ Not Available Start: 08-17-2024 End: 08-19-2024 Telephone encounter Lars RODRIGUEZ Work Phone: [facility] Start: 08-16-2024 End: 08-16-2024 ambulatory [facility] Facility:[facility] Start: 08-11-2024 End: 08-11-2024 Bamboo flowsheet Rlof Chung ATHLETIC COACH Work Phone: [facility] Start: 08-11-2024 End: 08-11-2024 Bamboo flowsheet Rolf Chung ATHLETIC COACH Work Phone: [facility] Start: 08-11-2024 End: 08-11-2024 Office outpatient visit 25 minutes Rolf Chung ATHLETIC COACH Work Phone: [facility] Comment on above: Type 2 diabetes aris itus with hyperglycemia, with long-term current use of insulin (CMS/HCC) (Primary Dx); Morbid (severe) obesity due to excess calories (CMS/HCC); Essential (primary) hypertension (CMS/HCC); Body mass index (BMI) 36.0-36.9, adult; 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); Chronic myeloid leukemia, BCR/ABL-positive, not having achieved remission (CMS/HCC); Type 2 diabetes mellitus with hyperglycemia (CMS/HCC); senior living (current) use of insulin (CMS/HCC); Other hypertrophic cardiomyopathy (CMS/HCC); 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); Mixed hyperlipidemia (CMS/HCC); Obstructive sleep apnea (adult) (pediatric); Hypertrophic cardiomyopathy (CMS/HCC); LVH (left ventricular hypertrophy); Screening for prostate cancer; Primary hypertension ([facility]/HCC) Start: 08-11-2024 End: 08-11-2024 Refill Rolf Chung ATHLETIC COACH Work Phone: [facility] Comment on above: Type 2 diabetes aris itus with hyperglycemia, with long-term current use of insulin ([facility]/HCC) Start: 08-05-2024 End: 08-05-2024 ambulatory [facility] Pat Phone Call Provider 1 [facility] - Pre Admit Start: 08-04-2024 End: 08-04-2024 [facility] Start: 08-02-2024 End: 08-02-2024 Bamboo flowsheet Yaniv Hernandez NP Work Phone: [facility] Start: 08-02-2024 End: 08-02-2024 Bamboo flowsheet Yaniv Hernandez ATHLETIC COACH Work Phone: [facility] Start: 08-02-2024 End: 08-02-2024 ambulatory YANIV HERNANDEZ Not Available Start: 08-02-2024 End: 08-02-2024 Patient encounter procedure Yaniv Hernandez ATHLETIC COACH Work Phone: [facility] Comment on above: Pre-op examination ( Primary Dx); Tear of left supraspinatus tendon Start: 08-02-2024 End: 08-02-2024 Preprocedural examination done Yaniv Hernandez ATHLETIC COACH Work Phone: [facility] Start: 07-28-2024 End: 07-28-2024 ambulatory AMAN PACK Facility:[facility] Start: 07-22-2024 End: 07-22-2024 Patient encounter procedure Erin Chapman SALES AG[employer]-EAR NOSE THROAT PHYSICIAN Work Phone: [facility] Comment on above: Encounter for screen ing colonoscopy (Primary Dx); Family history of colon cancer in father Start: 07-22-2024 End: 07-22-2024 ambulatory [facility] Start: 07-21-2024 End: 07-28-2024 Telephone encounter Paula Tuttle doorshaker/Oncology Comment on above: Returning Patient's Call Requesting time off until surgery Start: 07-14-2024 End: 07-23-2024 Orders Only William Howell MD, PhD Work Phone: Hematology/Oncology Comment on above: CML (chronic myeloid leukemia) (HCC) (Primary Dx) Biopsy Request Start: 07-06-2024 End: 07-06-2024 Bamboo flowsheet Jr. Kapil Hsu Stepguero DO Work Phone: [facility] Start: 07-06-2024 End: 07-06-2024 Bamboo flowsheet JrSixto Hsu Stepanic DO Work Phone: [facility] Start: 07-06-2024 End: 07-06-2024 Office outpatient visit 40 minutes Jr. Kapil Kilpatrick DO Work Phone: [facility] Comment on above: Acute pain of right shoulder (Primary Dx); History of arthroscopy of right shoulder Start: 07-06-2024 End: 07-06-2024 ambulatory KAPIL CARD Not Available Start: 06-18-2024 End: 06-18-2024 Bamboo flowsheet Jr. Kapil Kilpatrikc DO Work Phone: [facility] Start: 06-18-2024 End: 06-18-2024 Bamboo flowsheet Jr. Kapil Kilpatrick DO Work Phone: [facility] Start: 06-18-2024 End: 06-18-2024 Office outpatient visit 40 minutes Jr. Kapil Kilpatrick DO Work Phone: [facility] Comment on above: Sprain of left shoul hal, initial encounter; Tear of left supraspinatus tendon; Bicipital tendinitis of left shoulder Start: 06-18-2024 End: 06-18-2024 ambulatory KAPIL CARD Not Available Start: 06-16-2024 End: 06-16-2024 Chart abstracting Clare Ortiz Research Coordinator Hematology/Oncology Comment on above: Research ([id number] C ycle 51 D28) Start: 06-16-2024 End: 07-05-2024 Clinisync Result Encounter Generic External Data Provider [facility] External Department Unsolicited Start: 06-16-2024 End: 07-05-2024 Clinisync Result Encounter Generic External Data Provider [facility] External Department Unsolicited Start: 06-16-2024 End: 06-16-2024 Nursing evaluation of patient and report Paula Tuttle RN Hematology/Oncology Comment on above: CML (chronic myeloid leukemia) (HCC) (Primary Dx) Start: 06-16-2024 End: 06-16-2024 Patient encounter procedure William Howell MD, PhD Work Phone: Hematology/Oncology Start: 06-16-2024 End: 06-16-2024 ambulatory William Howell MD, PhD Work Phone: Hematology/Oncology Comment on above: CML (chronic myelocy tic leukemia) (HCC) (Primary Dx) Start: 06-10-2024 End: 06-10-2024 Telephone encounter Erin DUATREEAR NOSE THROAT PHYSICIAN Work Phone: [facility] Start: 05-31-2024 End: 05-31-2024 ambulatory ROLF CHUNG Not Available Start: 05-31-2024 End: 05-31-2024 Office outpatient visit 25 minutes Rolf Chung ATHLETIC COACH Work Phone: [facility] Comment on above: Type 2 diabetes aris itus with hyperglycemia, with long-term current use of insulin (CMS/HCC) (Primary Dx); Obstructive sleep apnea (adult) (pediatric); Essential (primary) hypertension (CMS/HCC); Hypertrophic cardiomyopathy (CMS/HCC); Morbid (severe) obesity due to excess calories (CMS/HCC); Chronic myeloid leukemia (CMS/HCC); Mixed hyperlipidemia (CMS/HCC); Colon cancer screening Start: 05-31-2024 End: 05-31-2024 Bamboo flowsheet Rolf Chung ATHLETIC COACH Work Phone: [facility] Start: 05-31-2024 End: 05-31-2024 Bamboo flowsheet Rolf Chung ATHLETIC COACH Work Phone: [facility] Start: 05-26-2024 End: 05-26-2024 ambulatory Justina Walter Youngiraida Facility[facility] Start: 05-19-2024 End: 05-19-2024 Emergency department patient visit ROLF CHUNG [facility] Start: 04-27-2024 End: 04-27-2024 Office outpatient visit 25 minutes Rolf Chung ATHLETIC COACH Work Phone: [facility] Comment on above: Type 2 diabetes aris itus with hyperglycemia, with long-term current use of insulin (CMS/HCC) (Primary Dx); 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/HCC); Essential (primary) hypertension (CMS/HCC); Morbid (severe) obesity due to excess calories (CMS/HCC); Chronic myeloid leukemia (CMS/HCC); Primary hypertension (CMS/HCC); Mixed hyperlipidemia (CMS/HCC); Bilateral hand pain Start: 04-27-2024 End: 04-27-2024 ambulatory ROLF CHUNG Not Available Start: 04-27-2024 End: 04-27-2024 Bamboo flowsheet Rolf Chung ATHLETIC COACH Work Phone: [facility] Start: 04-27-2024 End: 04-27-2024 Bamboo flowsheet Rolf Chung ATHLETIC COACH Work Phone: [facility] Start: 04-16-2024 End: 04-16-2024 ambulatory ROLF CHUNG Facility:[facility] Start: 04-16-2024 End: 04-16-2024 Patient encounter procedure Alexx Dalal APRN.EAR NOSE THROAT PHYSICIAN Work Phone: Endocrinology Comment on above: Type 2 diabetes aris itus with microalbuminuria, with long-term current use of insulin (HCC) (Primary Dx); Primary hypertension; Mixed hyperlipidemia Start: 04-09-[address] [facility] Start: 04-06-2024 End: 04-06-2024 ambulatory ROLF BERNSTEIN JULIET Facility:[facility] Start: 04-06-2024 End: 04-07-2024 Clinisync Result Encounter Generic External Data Provider [facility] External Department Unsolicited Start: 04-06-2024 End: 04-07-2024 Clinisync Result Encounter Generic External Data Provider [facility] External Department Unsolicited Start: 03-29-2024 End: 03-29-2024 Bamtaylor flowsheet Jr. Kapil Kilpatrick DO Work Phone: [facility] Start: 03-29-2024 End: 03-29-2024 Bamboo flowsheet Jr. Kapil Kilpatrick DO Work Phone: [facility] Start: 03-29-2024 End: 03-29-2024 Office outpatient visit 25 minutes Jr. Kapil Kilpatrick DO Work Phone: [facility] Comment on above: Acute pain of right shoulder (Primary Dx); History of arthroscopy of right shoulder; Numbness Start: 03-29-2024 End: 03-29-2024 ambulatory KAPIL CARD Not Available Start: 03-19-2024 End: 03-19-2024 Clinisync Result Encounter Generic External Data Provider [facility] External Department Unsolicited Start: 03-19-2024 End: 03-19-2024 Clinisync Result Encounter Generic External Data Provider [facility] External Department Unsolicited Start: 03-19-2024 ambulatory ROLF BERNSTEIN MADHAVIGISELA Facili ty:[facility] Start: 03-19-2024 End: 03-19-2024 Subsequent hospital visit by physician Rafael Hahn MD Work Phone: [id number] Comment on above: CML [...] 03-17-2024 Nursing evaluation of patient and report Paula Tuttle RN Hematology/Oncology Comment on above: CML (chronic myeloid leukemia) (HCC) (Primary Dx) Start: 03-17-2024 End: 03-17-2024 Patient encounter procedure William Howell MD, PhD Work Phone: Hematology/Oncology Start: 03-17-2024 End: 03-17-2024 ambulatory ROLF CHUNG Facility:[facility] Start: 03-15-2024 End: 03-17-2024 Orders Only William Howell MD, PhD Work Phone: Hematology/Oncology Comment on above: CML (chronic myeloid leukemia) (HCC) (Primary Dx) Start: 03-09-2024 ambulatory LARS BELCHER [facility] Start: 03-03-2024 End: 03-03-2024 Office outpatient visit 25 minutes Rolfwalter Chung ATHLETIC COACH Work Phone: [facility] Comment on above: Type 2 diabetes aris itus with hyperglycemia, with long-term current use of insulin (CMS/HCC) (Primary Dx); Morbid (severe) obesity due to excess calories (CMS/HCC); Obstructive sleep apnea (adult) (pediatric); Body mass index (BMI) 37.0-37.9, adult; Primary hypertension (CMS/HCC) Start: 03-03-2024 End: 03-03-2024 ambulatory ROLF MADHAVIHYADIELZ Not Available Start: 03-03-2024 End: 03-03-2024 Bamboo flowsheet Lars Belcher PA Work Phone: [facility] Start: 03-03-2024 End: 03-03-2024 Bamboo flowsheet Lars Belcher PA Work Phone: [facility] Start: 03-03-2024 End: 03-03-2024 ambulatory LARS BELCHER Not Available Start: 03-03-2024 End: 03-03-2024 Postop follow up visit related to original px Lars Belcher PA Work Phone: [facility] Comment on above: Status post arthrosc opy of right shoulder (Primary Dx) Start: 03-01-2024 End: 03-01-2024 Bamboo flowsheet JrSixto Hsu Stepanic DO Work Phone: [facility] Start: 03-01-2024 End: 03-01-2024 Bamboo flowsheet JrSixto Hsu Stepanic DO Work Phone: [facility] Start: 03-01-2024 End: 03-01-2024 ambulatory .KAPIL Not Available Start: 03-01-2024 End: 03-01-2024 Postop follow up visit related to original px Jr. Kapil Hsu Stepanic DO Work Phone: [facility] Comment on above: Status post arthrosc opy of right shoulder (Primary Dx) Start: 02-26-2024 End: 02-26-2024 Bamboo flowsheet Clara Mantilla DO Work Phone: [facility] [address] Start: 02-26-2024 End: 02-26-2024 Bamboo flowsheet Harrisopher Annalee DO Work Phone: [employer] [address] Start: 02-26-2024 End: 02-26-2024 Patient encounter procedure Christwicho Annalee DO Work Phone: [facility] [address] Comment on above: Carpal tunnel syndro me on right (Primary Dx); Paresthesias in right hand; Arm weakness; Numbness; Arm pain, right; Ulnar neuropathy of right upper extremity Start: 02-26-2024 End: 02-26-2024 ambulatory CLARA MANTILLA Not Available Start: 02-19-2024 End: 02-20-2024 Refill Rolf Chung NP Work Phone: [facility] Comment on above: Type 2 diabetes aris itus with hyperglycemia, with long-term current use of insulin ([facility]) Start: 02-10-2024 End: 02-11-2024 Refill Aman Pack MD Work Phone: [facility] Comment on above: Type 2 diabetes aris itus with hyperglycemia, with long-term current use of insulin ([facility]) Start: 02-04-2024 End: 02-04-2024 Bamboo flowsheet Lars Belcher PA Work Phone: [facility] Start: 02-04-2024 End: 02-04-2024 Bamboo flowsheet Lars RODRIGUEZ Work Phone: [facility] Start: 02-04-2024 End: 02-04-2024 Postop follow up visit related to original px Lars RODRIGUEZ Work Phone: [facility] Comment on above: S/P right rotator cu ff repair (Primary Dx); Paresthesias in right hand Start: 01-08-2024 End: 02-08-2024 ambulatory LARS BELCHER [facility] Start: 12-26-2023 Telephone encounter Ludy Kolb RN Work Phone: Hematology/Oncology Comment on above: Results Start: 12-24-2023 Chart abstracting Raheem burnette Research Coordinator Hematology/Oncology Comment on above: Research (ACTG 1920 C45D28) Start: 12-24-2023 End: 12-24-2023 Nursing evaluation of patient and report Ludy Kolb RN Work Phone: Hematology/Oncology Comment on above: CML (chronic myeloid leukemia) (HCC) (Primary Dx) Start: 12-24-2023 End: 12-24-2023 Patient encounter procedure Deb Menard APRN.EAR NOSE THROAT PHYSICIAN Work Phone: Hematology/Oncology Comment on above: CML (chronic myeloid leukemia) (HCC) (Primary Dx); Exam for clinical research Start: 12-23-2023 End: 01-08-2024 Refill Meg Trenton IRELANDEAR NOSE THROAT PHYSICIAN Work Phone: Endocrinology Comment on above: Refill Request Start: 12-16-2023 Orders Only William painting MD, PhD Work Phone: Hematology/Oncology Comment on above: Chronic myeloid leuk emia (HCC) (Primary Dx) Start: 12-15-2023 Orders Only William painting MD, PhD Work Phone: Hematology/Oncology Comment on above: CML (chronic myeloid leukemia) (HCC) (Primary Dx) Biopsy Request Start: 12-09-2023 End: 12-09-2023 Departed Referred Rolf Chung Work Phone: [facility] [place] Work Phone: Start: 12-09-2023 End: 12-09-2023 ambulatory Rolf Abiodun Chung Work Phone: [facility] Work Phone: Start: 12-02-2023 End: 12-02-2023 Orders Only Lars RODRIGUEZ Work Phone: [facility] Comment on above: Encounter for other preprocedural examination Start: 12-02-2023 End: 12-02-2023 Patient encounter status Lars RODRIGUEZ Work Phone: [facility] Start: 12-02-2023 End: 12-02-2023 ambulatory LARS BELCHER [facility] Start: 12-02-2023 Encounter for other preprocedural examination LARS BELCHER [facility] Start: 10-29-2023 End: 10-29-2023 Office outpatient visit 25 minutes Yan Durham MD Work Phone: [facility] Card[facility] Comment on above: Primary hypertension (Primary Dx); LVH (left ventricular hypertrophy) Start: 10-28-2023 Orders Only Meg Chowdhury SALES AGENT CASUALTY INSURANCE.EAR NOSE THROAT PHYSICIAN Work Phone: Endocrinology Start: 10-23-2023 ambulatory [facility] Provider Endocrinol henryy Comment on above: Question Start: 10-23-2023 E-mail encounter margarita bacon caregiver [facility] Provider Endocrinology Start: 10-17-2023 Telephone encounter Alexx campbell SALES AGENT CASUALTY INSURANCE.EAR NOSE THROAT PHYSICIAN Work Phone: Endocrinology Start: 10-14-2023 Telephone encounter Raheem feldman Research Coordinator Hematology/Oncology Comment on above: Research (ARIA 2915 Survival Follow-up Last Call) Start: 10-01-2023 Chart abstracting Raheem burnette Research Coordinator Hematology/Oncology Comment on above: Research (ACTG 1920 Cycle 42 D28) Start: 10-01-2023 End: 10-01-2023 ambulatory William Howell MD, PhD Work Phone: Hematology/Oncology Comment on above: CML (chronic myelocy tic leukemia) (HCC) (Primary Dx) Start: 10-01-2023 End: 10-01-2023 Nursing evaluation of patient and report Paula Tuttle RN Hematology/Oncology Comment on above: CML (chronic myeloid leukemia) (HCC) (Primary Dx) Start: 10-01-2023 End: 10-01-2023 Patient encounter procedure William Howell MD, PhD Work Phone: Hematology/Oncology Start: 09-29-2023 Orders Only William painting MD, PhD Work Phone: Hematology/Oncology Comment on above: CML (chronic myeloid leukemia) (HCC) (Primary Dx) Start: 09-10-2023 Telephone encounter Sherrell Esteves CMA [facility] Start: 08-29-2023 End: 08-29-2023 Patient encounter procedure Alexx Dalal APRN.EAR NOSE THROAT PHYSICIAN Work Phone: Endocrinology Comment on above: Type 2 diabetes aris itus with microalbuminuria, with long-term current use of insulin (HCC) (Primary Dx); Primary hypertension; Mixed hyperlipidemia Start: 08-20-2023 Orders Only William painting MD, PhD Work Phone: Hematology/Oncology Comment on above: Chronic myeloid leuk emia (HCC) (Primary Dx) Start: 07-31-2023 End: 08-01-2023 ambulatory Nigel Solorzano [facility] Start: 07-09-2023 End: 07-09-2023 ambulatory William Howell MD, PhD Work Phone: Hematology/Oncology Comment on above: CML (chronic myelocy tic leukemia) (HCC) (Primary Dx) Start: 07-09-2023 End: 07-09-2023 Patient encounter procedure William Howell MD, PhD Work Phone: [facility] Start: 06-30-2023 End: 06-30-2023 Office outpatient visit 40 minutes Yan Durham MD Work Phone: [facility] Card[facility] Comment on above: Palpitations (Primar [...] leukemia) (HCC) (Primary Dx) Start: 03-20-2023 Refill Alexx ni APRN.EAR NOSE THROAT PHYSICIAN Work Phone: Endocrinology Comment on above: Refill Request Start: 02-05-2023 End: 02-05-2023 ambulatory Rolf Rascon Juliet Work Phone: [facility] Work Phone: Start: 02-05-2023 End: 02-05-2023 Patient encounter procedure Rolf Juliet Work Phone: [facility] [address] Work Phone: Start: 02-03-2023 [...] 01-22-2023 Nursing evaluation of patient and report Paula Tuttle doorshaker/Oncology Comment on above: CML (chronic myeloid leukemia) (HCC) (Primary Dx) Start: 01-22-2023 End: 01-22-2023 Patient encounter procedure William Howell MD, PhD Work Phone: [facility] Start: 01-21-2023 Telephone encounter William [...] procedure William Howell MD, PhD Work Phone: [facility] Start: 10-16-2022 End: 10-17-2022 ambulatory [facility] Start: 10-15-2022 End: 10-16-2022 ambulatory [facility] Start: 10-15-2022 End: 10-15-2022 Patient encounter procedure Alexx Dalal APRN.EAR NOSE THROAT PHYSICIAN Work Phone: Endocrinology Comment on above: Type 2 diabetes aris itus with hyperglycemia, with long-term current use of insulin (HCC) (Primary Dx); Primary hypertension; Mixed hyperlipidemia Start: 09-17-2022 ambulatory Paula Tuttle RN matology/Oncology Comment on above: return call Start: 09-17-2022 E-mail encounter fro m caregiver Paula Tuttle RN [facility] Start: 08-06-2022 End: 08-07-2022 Orders Only William Howell MD, PhD Work Phone: Hematology/Oncology Comment on above: CML (chronic myeloid leukemia) (HCC) (Primary Dx) Biopsy Request Start: 08-05-2022 End: 08-05-2022 ambulatory William Howell MD, PhD Work Phone: Hematology/Oncology Comment on above: CML (chronic myelocy tic leukemia) (HCC) (Primary Dx) Start: 08-05-2022 End: 08-05-2022 Nursing evaluation of patient and report Lduy Kolb RN Work Phone: Hematology/Oncology Comment on above: CML (chronic myeloid leukemia) (HCC) (Primary Dx) Start: 08-05-2022 End: 08-05-2022 Patient encounter procedure William Howell MD, PhD Work Phone: [facility] Start: 07-30-2022 ambulatory Alexx ni SALES AGENT CASUALTY INSURANCE.EAR NOSE THROAT PHYSICIAN Work Phone: Endocrinology Comment on above: Insulin Adjustments Start: 07-30-2022 E-mail encounter fro m caregiver Alexx Dalal SALES AGENT CASUALTY INSURANCE.EAR NOSE THROAT PHYSICIAN Work Phone: [facility] Start: 07-30-2022 End: 07-30-2022 Nursing evaluation of [...] (HCC) (Primary Dx) Start: 07-22-2022 Orders Only Александр Aguilera Research Coordinator Hematology/Oncology Comment on above: Chronic myeloid leuk emia (HCC) (Primary Dx) Start: 07-15-2022 End: 07-15-2022 Patient encounter procedure Alexx Dalal SALES AGENT CASUALTY INSURANCE.EAR NOSE THROAT PHYSICIAN Work Phone: Endocrinology Comment on above: Type [...] Refill Request Start: 05-12-2022 End: 05-12-2022 ambulatory EAR NOSE THROAT PHYSICIAN [facility] Start: 05-10-2022 Orders Only William painting MD, PhD Work Phone: Hematology/Oncology Comment on above: Chronic myeloid leuk emia (HCC) (Primary Dx) CML (chronic myelocy tic leukemia) (HCC) (Primary Dx) Start: 05-03-2022 Telephone encounter Alexx campbell APRN.EAR NOSE THROAT PHYSICIAN Work Phone: Endocrinology Comment on above: Patient Question Start: 03-25-2022 ambulatory Alexx ni SALES AGENT CASUALTY INSURANCE.EAR NOSE THROAT PHYSICIAN Work Phone: Endocrinology Comment on above: Lab results Start: 03-25-2022 E-mail encounter fro m caregiver Alexx Dalal APRN.EAR NOSE THROAT PHYSICIAN Work Phone: [facility] Start: 03-19-2022 End: 03-19-2022 Patient encounter procedure Alexx Dalal APRN.EAR NOSE THROAT PHYSICIAN Work Phone: Endocrinology Comment on above: Uncontrolled type 2 diabetes mellitus with hyperglycemia (HCC) (Primary Dx); Mixed hyperlipidemia Start: 02-18-2022 End: 02-18-2022 ambulatory William Howell MD, PhD Work Phone: Hematology/Oncology Comment on above: CML (chronic myelocy tic leukemia) (HCC) (Primary Dx) Start: 02-18-2022 End: 02-18-2022 Nursing evaluation of patient and report Paula Tuttle doorshaker/Oncology Comment on above: CML (chronic myeloid leukemia) (HCC) (Primary Dx) Start: 02-18-2022 End: 02-18-2022 Patient encounter procedure William Howell MD, PhD Work Phone: [facility] Start: 02-15-2022 Orders Only William [...] (HCC) (Primary Dx) Start: 11-30-2021 Telephone encounter Paula Gray i, RN Hematology/Oncology Comment on above: Appointment Start: 11-29-2021 Orders Only William painting MD, PhD Work Phone: Hematology/Oncology Comment on above: CML (chronic myelocy tic leukemia) (HCC) (Primary Dx) Start: 11-28-2021 Orders Only William painting MD, PhD Work Phone: Hematology/Oncology Comment on above: CML (chronic myeloid leukemia) (HCC) (Primary Dx) Start: 11-26-2021 End: 11-26-2021 Nursing evaluation of patient and report Paula Tuttle RN Hematology/Oncology Comment on above: CML (chronic myeloid leukemia) (HCC) (Primary Dx) Start: 11-26-2021 End: 11-26-2021 ambulatory William Howell MD, PhD Work Phone: Hematology/Oncology Comment on above: CML (chronic myelocy tic leukemia) (HCC) (Primary Dx) Start: 11-26-2021 End: 11-26-2021 Patient encounter procedure William Howell MD, PhD Work Phone: [facility] Start: 11-21-2021 End: 11-21-2021 ambulatory DOMINIC CHUNG Facility:[facility] Start: 11-01-2021 End: 11-01-2021 ambulatory DOMINIC CHUNG Facility:[facility] Start: 10-03-2021 End: 10-03-2021 ambulatory DOMINIC CHUNG Facility:[facility] Start: 09-11-2021 Telephone encounter Paula Gray i, RN Hematology/Oncology Comment on above: Patient Question Start: 09-10-2021 Orders Only William painting MD, PhD Work Phone: Hematology/Oncology Comment on above: CML (chronic myeloid leukemia) (HCC) (Primary Dx) Start: 09-06-2021 Telephone encounter Paula Gray i, RN Hematology/Oncology Comment on above: Medication Problem Start: 09-05-2021 End: 09-06-2021 ambulatory DOMINIC CHUNG Facility:[facility] Start: 09-04-2021 Telephone encounter William taylor MD, PhD Work Phone: Hematology/Oncology Comment on above: Biopsy Request Start: 09-03-2021 Chart abstracting Paula Tuttle RN Hematology/Oncology Comment on above: Research (ACTG 1920 / IRB [id number] reconsent) Start: 09-03-2021 End: 09-03-2021 Patient encounter procedure [facility] Work Phone: Vascular Medicine Comment on above: CML (chronic myeloid leukemia) (HCC) Start: 09-03-2021 End: 09-03-2021 Nursing evaluation of patient and report Paula Tuttle RN Hematology/Oncology Comment on above: CML (chronic myeloid leukemia) (HCC) (Primary Dx) Procedures Date Procedure Procedure Detail Performing Clinician Start: 02-18-2025 Ecg routine ecg w/le ast 12 lds w/i&r Mal Coello MD Work Phone: Start: 12-23-2024 [facility] HIGH SENSITIVITY TROPONIN T Generic External Data Provider Start: 12-22-2024 [facility] CBC W AUTO DIFF BLD Generic External Data Provider Start: 12-07-2024 Hemoglobin glycosylated a1c Rolf Aichyadiellurdes ATHLETIC COACH Work Phone: Start: 10-21-2024 Ecg routine ecg w/le ast 12 lds w/i&r Yan Durham MD Work Phone: Start: 10-21-2024 Follow-up visit Follow-up YAN DURHAM Start: 09-29-2024 [facility] CBC W AUTO DIFF BLD Generic External Data Provider Start: 09-22-2024 [facility] HIGH SENSITIVITY TROPONIN T Generic External Data Provider Start: 09-15-2024 [facility] CBC W AUTO DIFF BLD Generic External Data Provider Start: 09-15-2024 Echocardiography Generi c External Data Provider Start: 09-10-2024 [facility] FLOW CYTOMETRY F OR LEUKEMIA/LYMPHOMA (FCLL) PERFORMABLE Generic External Data Provider Start: 09-10-2024 FLOW CYTOMETRY FOR LEUKEMIA/LYMPHOMA (FCLL) William Howell MD, PhD Work Phone: Start: 09-10-2024 FLOW CYTOMETRY FOR LEUKEMIA/LYMPHOMA (FCLL) PERFORMABLE William Howell MD, PhD Work Phone: Start: 09-10-2024 Gluc bld gluc mntr d ev cleared fda spec home use Alan Hernandez MD Work Phone: Start: 09-08-2024 Ecg routine ecg w/le ast 12 lds w/i&r Generic External Data Provider Start: 09-08-2024 [facility] CBC W AUTO DIFF BLD Generic External Data Provider Start: 06-16-2024 Ecg routine ecg w/le ast [...] ev cleared fda spec home use Rafael Hahn MD Work Phone: Start: 03-17-2024 [facility] CBC W AUTO DIFF BLD Generic External Data Provider Start: 02-26-2024 End: 02-26-2024 Needle emg ea extremty w/paraspinl area complete Clara Mantilla DO Work Phone: Start: 12-24-2023 End: 12-24-2023 Ecg routine ecg w/least 12 lds i&r only [facility] Provider Start: 06-13-2023 Radex shoulder compl ete minimum 2 views Loco Wynn PA-C Work Phone: Start: 04-16-2023 Echo tthrc r-t 2d w/wom-mode compl spec&colr d William Howell MD, PhD Work Phone: Start: 02-05-2023 XR pre/post mri xray Li Juliet Work Phone: Start: 02-05-2023 MRI of right shoulder L xavi Juliet Work Phone: Start: 10-15-2022 Hemoglobin A1c/Hemoglobin.total in Blood Alexx Dalal SALES AGENT CASUALTY INSURANCE.EAR NOSE THROAT PHYSICIAN Work Phone: Start: 08-06-2022 PSA screening DOMINIC CHUNG Comment on above: Performed By: #### M ALBR #### [facility] [address] [place] [address] Dr. Yinka Flores Start: 07-15-2022 Hemoglobin A1c/Hemoglobin.total in Blood Alexx Dalal SALES AGENT CASUALTY INSURANCE.EAR NOSE THROAT PHYSICIAN Work Phone: Start: 03-19-2022 Hemoglobin A1c/Hemoglobin.total in Blood Alexx Dalal SALES AGENT CASUALTY INSURANCE.EAR NOSE THROAT PHYSICIAN Work Phone: Start: 09-05-2021 PSA screening DOMINIC CHUNG Comment on above: Performed By: #### M ALBR #### [facility] [address] [address] [address] Yinka Flores Start: 09-03-2021 Echo tthrc r-t 2d w/wom-mode compl spec&colr d Connie Burns APRN.EAR NOSE THROAT PHYSICIAN Work Phone: Start: 09-03-2021 LVEF TRANSTHORACIC ECHO Connie Burns APRN.EAR NOSE THROAT PHYSICIAN Work Phone: Start: 06-11-2021 Adult depression scr eening assessment Paula Tuttle RN History of repair of musculotendinous cuff of shoulder S/P right rotator cuff repair Lars Belcher PA Work Phone: Plan of Treatment Date Care Activity Detail Author Start: 08-06-2027 Prostate specific antigen measurement Prostate Cancer Screening Discussion [facility] Start: 05-13-2027 LIPID SCREEN LIPID SCREEN [facility] Start: 03-22-2027 LIPID SCREEN LIPID SCREEN [facility] Start: 02-18-2027 LIPID SCREEN LIPID SCREEN [facility] Start: 11-26-2026 LIPID SCREEN LIPID SCREEN [facility] Start: 09-03-2026 LIPID SCREEN LIPID SCREEN [facility] Start: 06-21-2026 Glaucoma screening Diabetes: Retinopathy Screening [facility] Start: 06-19-2026 Glaucoma screening Diabetes: Retinopathy Screening [facility] Start: 02-18-2026 Adult BMI Screening Adult BMI Screening [facility] Start: 02-18-2026 Tobacco Screening Tobacco Screening [facility] Start: 10-21-2025 Adult BMI Screening Adult BMI Screening [facility] Start: 10-21-2025 Tobacco Screening Tobacco Screening [facility] Start: 09-29-2025 BP Controlled (<130/80) BP Controlled (<130/80) [facility] Start: 07-25-2025 End: 07-25-2025 Patient encounter procedure 07/25/2025 8:15 AM EST Office Visit [facility] [address] [place] [address] Yaniv Hernandez, ATHLETIC COACH [address] [place] [address] [facility] Start: 07-22-2025 Adult BMI Screening Adult BMI Screening [facility] Start: 07-22-2025 Tobacco Screening Tobacco Screening [facility] Start: 05-19-2025 Adult BMI Screening Adult BMI Screening [facility] Start: 05-19-2025 Tobacco Screening Tobacco Screening [facility] Start: 05-13-2025 DIABETES SCREEN DIABETES SCREEN [facility] Start: 04-16-2025 BP Controlled (<130/80) BP Controlled (<130/80) [facility] in Start: 03-24-2025 Hemoglobin A1c measurement [facility] Start: 03-22-2025 DIABETES SCREEN DIABETES SCREEN [facility] Start: 03-19-2025 DIABETES SCREEN DIABETES SCREEN [facility] Start: 03-09-2025 Hemoglobin A1c measurement Diabetes: Hemoglobin A1C [facility] Start: 03-03-2025 End: 03-03-2025 Patient encounter procedure [facility] Start: 02-25-2025 End: 02-25-2025 Patient encounter procedure 02/25/2025 3:00 PM EDT Appointment [facility] [address] [place] [phone] Mal Coello MD [address] [place] [address] [facility] Start: 02-24-2025 End: 02-24-2025 ambulatory 02/24/2025 3:00 PM EDT Treatment [facility] [address] [place] [phone] Melisa Rocha, CROWN ASSEMBLY MACHINE OPERATOR [address] [place] [address] [facility] Start: 02-22-2025 End: 02-22-2025 ambulatory 02/22/2025 3:00 PM EDT Treatment [facility] [address] [place] [phone] Melisa Rocha, CROWN ASSEMBLY MACHINE OPERATOR [address] [place] [address] [facility] Start: 02-18-2025 DIABETES SCREEN DIABETES SCREEN [facility] Start: 02-18-2025 End: 02-18-2026 Holter monitor study Holter monitor 3-5 days Cardiac Services Routine Palpitations Expected: 02/18/2025, Expires: 02/18/2026 [facility] Work Phone: Comment on above: Expected: 02/18/2025, Expires: Start: 02-18-2025 End: 02-18-2025 Patient encounter procedure 02/18/2025 9:30 AM EDT Office Visit [facility] [address] [place] [phone] Yan Durham MD [address] [place] [address] [facility] Start: 02-17-2025 End: 02-17-2025 ambulatory 02/17/2025 3:30 PM EDT Treatment [facility] [address] [place] [phone] Lupillo Bahena, PT [address] [place] [address] [facility] Start: 02-15-2025 End: 02-15-2025 ambulatory 02/15/2025 3:00 PM EDT Treatment [facility] [address] [place] [phone] Melisa Rocha PTA [address] [place] [address] [facility] Start: 02-07-2025 Influenza vaccination [facility] Start: 02-03-2025 End: 02-03-2025 ambulatory 02/03/2025 3:00 PM EDT Treatment [facility] [place] [address] [place] [address] Melisa Rocha, CROWN ASSEMBLY MACHINE OPERATOR [address] [place] [address] [facility] [place] Start: 02-01-2025 End: 02-01-2025 ambulatory 02/01/2025 3:00 PM EDT Treatment [facility] [place] [address] [place] [address] Ava Aldana, CROWN ASSEMBLY MACHINE OPERATOR [facility] [place] Start: 01-27-2025 End: 01-27-2025 ambulatory 01/27/2025 3:00 PM EDT Treatment [facility] [place] [address] [place] [phone] Melisa Rocha, CROWN ASSEMBLY MACHINE OPERATOR [address] [place] [address] [facility] [place] Start: 01-24-2025 End: 01-24-2025 ambulatory [facility] [place] Start: 01-24-2025 End: 01-24-2025 Patient encounter procedure [facility] Comment on above: Arrived Start: 01-20-2025 End: 01-20-2025 ambulatory 01/20/2025 3:00 PM EDT Treatment [facility] [address] [place] [address] Melisa Rocha, CROWN ASSEMBLY MACHINE OPERATOR [address] [place] [address] [facility] [place] Start: 01-18-2025 End: 01-18-2025 ambulatory 01/18/2025 3:00 PM EDT Treatment [facility] [place] [address] [place] [phone] Lupillo Bahena, PT [address] [place] [address] [facility] Start: 01-17-2025 End: 01-17-2025 Patient encounter procedure 01/17/2025 3:20 PM EDT Office Visit [facility] [address] [place] [address] Rolf Chung NP [address] [place] [address] [facility] Start: 01-13-2025 End: 01-13-2025 ambulatory 01/13/2025 3:00 PM EDT Treatment [facility] [address] [place] [phone] Lupillo Bahena, PT [address] [place] [address] [facility] Start: 01-11-2025 End: 01-11-2025 ambulatory 01/11/2025 3:00 PM EDT Treatment [facility] [address] [place] [phone] Ava Aldana PTA [facility] Start: 01-04-2025 End: 01-04-2025 ambulatory 01/04/2025 10:00 AM EDT Evaluation [facility] [address] [phone] Lupillo Bahena, PT [address] [place] [address] [facility] Start: 12-22-2024 End: 12-23-2024 Amylase [Enzymatic activity/volume] in Serum or Plasma AMYLASE Lab Routine CML (chronic myelocytic leukemia) (HCC) Expected: 12/22/2024, Expires: 12/23/2024 [facility] Comment on above: Expected: 12/22/2024, Expires: Start: 12-22-2024 End: 12-23-2024 aPTT in Platelet poor plasma by Coagulation assay ACTIVATED PARTIAL THROMBOPLASTIN TIME Lab Routine CML (chronic myelocytic leukemia) (HCC) Expected: 12/22/2024, Expires: 12/23/2024 [facility] Comment on above: Expected: 12/22/2024, Expires: Start: 12-22-2024 End: 12-23-2024 BCR/ABL1 P210 QUANTITATIVE PCR BLOOD BCR/ABL1 P210 QUANTITATIVE PCR BLOOD Lab Routine CML (chronic myelocytic leukemia) (HCC) Expected: 12/22/2024, Expires: 12/23/2024 [facility] Comment on above: Expected: 12/22/2024, Expires: Start: 12-22-2024 End: 12-23-2024 CBC W Auto Differential panel - Blood COMPLETE BLOOD COUNT AND DIFFERENTIAL Lab Routine CML (chronic myelocytic leukemia) (HCC) Expected: 12/22/2024, Expires: 12/23/2024 [facility] Work Phone: Comment on above: Expected: 12/22/2024, Expires: Start: 12-22-2024 End: 12-23-2024 Cholesterol [Mass/volume] in Serum or Plasma TOTAL CHOLESTEROL Lab Routine CML (chronic myelocytic leukemia) (HCC) Expected: 12/22/2024, Expires: 12/23/2024 [facility] Comment on above: Expected: 12/22/2024, Expires: Start: 12-22-2024 End: 12-23-2024 Comprehensive metabolic 2000 panel - Serum or Plasma COMPREHENSIVE METABOLIC PANEL Lab Routine CML (chronic myelocytic leukemia) (HCC) Expected: 12/22/2024, Expires: 12/23/2024 [facility] Comment on above: Expected: 12/22/2024, Expires: Start: 12-22-2024 End: 12-23-2024 Creatine kinase [Enzymatic activity/volume] in Serum or Plasma CREATINE KINASE/CK Lab Routine CML (chronic myelocytic leukemia) (HCC) Expected: 12/22/2024, Expires: 12/23/2024 [facility] Comment on above: Expected: 12/22/2024, Expires: Start: 12-22-2024 End: 12-23-2024 DIRECT BILIRUBIN BLOOD DIRECT BILIRUBIN BLOOD Lab Routine CML (chronic myelocytic leukemia) (HCC) Expected: 12/22/2024, Expires: 12/23/2024 [facility] Comment on above: Expected: 12/22/2024, Expires: Start: 12-22-2024 End: 12-23-2024 ECG COMPLETE ECG COMPLETE ECG Routine CML (chronic myelocytic leukemia) (HCC) Expected: 12/22/2024, Expires: 12/23/2024 [facility] Comment on above: Expected: 12/22/2024, Expires: Start: 12-22-2024 End: 12-23-2024 Echocardiography ECHO Cardiology Routine CML (chronic myelocytic leukemia) (HCC) Expected: 12/22/2024, Expires: 12/23/2024 [facility] Comment on above: Expected: 12/22/2024, Expires: Start: 12-22-2024 End: 12-23-2024 Hemoglobin A1c in Blood HEMOGLOBIN A1C Lab Routine CML (chronic myelocytic leukemia) (HCC) Expected: 12/22/2024, Expires: 12/23/2024 [facility] Comment on above: Expected: 12/22/2024, Expires: Start: 12-22-2024 End: 12-23-2024 HIGH SENSITIVITY TROPONIN T HIGH SENSITIVITY TROPONIN T Lab Routine CML (chronic myelocytic leukemia) (HCC) Expected: 12/22/2024, Expires: 12/23/2024 [facility] Comment on above: Expected: 12/22/2024, Expires: Start: 12-22-2024 End: 12-23-2024 Lipase [Enzymatic activity/volume] in Serum or Plasma LIPASE Lab Routine CML (chronic myelocytic leukemia) (HCC) Expected: 12/22/2024, Expires: 12/23/2024 [facility] Comment on above: Expected: 12/22/2024, Expires: Start: 12-22-2024 End: 12-23-2024 Magnesium [Mass/volume] in Serum or Plasma MAGNESIUM Lab Routine CML (chronic myelocytic leukemia) (HCC) Expected: 12/22/2024, Expires: 12/23/2024 [facility] Comment on above: Expected: 12/22/2024, Expires: Start: 12-22-2024 End: 12-23-2024 MISC SEND OUT TST 1 MISC SEND OUT TST 1 Lab Routine CML (chronic myelocytic leukemia) (HCC) Expected: 12/22/2024, Expires: 12/23/2024 [facility] Comment on above: Expected: 12/22/2024, Expires: Start: 12-22-2024 End: 12-23-2024 Phosphate [Mass/volume] in Serum or Plasma PHOSPHORUS INORGANIC Lab Routine CML (chronic myelocytic leukemia) (HCC) Expected: 12/22/2024, Expires: 12/23/2024 [facility] Comment on above: Expected: 12/22/2024, Expires: Start: 12-22-2024 End: 12-23-2024 PT panel - Platelet poor plasma by Coagulation assay PROTHROMBIN TIME Lab Routine CML (chronic myelocytic leukemia) (HCC) Expected: 12/22/2024, Expires: 12/23/2024 [facility] Comment on above: Expected: 12/22/2024, Expires: Start: 12-22-2024 End: 12-23-2024 Triglyceride [Mass/volume] in Serum or Plasma TRIGLYCERIDES Lab Routine CML (chronic myelocytic leukemia) (HCC) Expected: 12/22/2024, Expires: 12/23/2024 [facility] Comment on above: Expected: 12/22/2024, Expires: Start: 12-22-2024 End: 12-23-2024 Urate [Mass/volume] in Serum or Plasma URIC ACID Lab Routine CML (chronic myelocytic leukemia) (HCC) Expected: 12/22/2024, Expires: 12/23/2024 [facility] Comment on above: Expected: 12/22/2024, Expires: Start: 12-22-2024 End: 12-23-2024 URINALYSIS, DIPSTICK ONLY URINALYSIS, DIPSTICK ONLY Lab Routine CML (chronic myelocytic leukemia) (HCC) Expected: 12/22/2024, Expires: 12/23/2024 [facility] Comment on above: Expected: 12/22/2024, Expires: Start: 12-22-2024 End: 12-22-2024 Patient encounter procedure 12/22/2024 12:30 PM EDT Office Visit Cardiology [address] [place] [address] CHARGE TO RESEARCH Cardiology Comment on above: CHARGE TO RESEARCH Start: 12-22-2024 End: 12-22-2024 Nursing evaluation of patient and report 12/22/2024 9:00 AM EDT Nurse Visit Hematology/Oncology [address] [id number] Paula Tuttle, RN [address] [place] [address] STUDY PT Hematology/Oncology Comment on above: STUDY PT Start: 12-22-2024 End: 12-22-2024 ambulatory [facility] [place] [address] satish Quintanilla Comment on above: STUDY PT Start: 12-13-2024 End: 12-13-2024 Patient encounter procedure [facility] Comment on above: Arrived Start: 12-08-2024 Hemoglobin A1c measurement [facility] Start: 12-07-2024 End: 12-07-2024 Patient encounter procedure [facility] Comment on above: Type 2 diabetes mellitus with diabetic p olyneuropathy, with long-term current use of insulin (HCC) (Primary Dx); Essential (primary) hypertension ; Type 2 diabetes mellitus with hyperglycemia, with long-term current use of insulin (HCC); Morbid (severe) obesity due to excess calories ([facility]-HCC); Screening for prostate cancer Start: 12-07-2024 End: 12-07-2025 Microalbumin/Creatinine panel in random Urine Microalbumin / creatinine, urine ratio Lab Routine Essential (primary) hypertension Type 2 diabetes mellitus with hyperglycemia, with long-term current use of insulin (HCC) Expected: 12/07/2024 (Approximate), Expires: 12/07/2025 [facility] Work Phone: Comment on above: Expected: 12/07/2024 (Approximate), Expi res: 12/07/2025 Start: 12-07-2024 End: 12-07-2025 Prostate specific Ag [Mass/volume] in Serum or Plasma PSA Lab Routine Screening for prostate cancer Expected: 12/07/2024 (Approximate), Expires: 12/07/2025 [facility] Comment on above: Expected: 12/07/2024 (Approximate), Expi res: 12/07/2025 Start: 12-01-2024 End: 12-01-2024 ambulatory 12/01/2024 8:30 AM EDT Treatment [facility] [address] [place] [phone] Lupillo Bahena, PT [address] [place] [address] [facility] Start: 11-30-2024 End: 11-30-2024 ambulatory 11/30/2024 3:00 PM EDT Treatment [facility] [address] [place] [phone] Melisa Rocha, CROWN ASSEMBLY MACHINE OPERATOR [address] [place] [address] [facility] Start: 11-29-2024 End: 11-29-2024 ambulatory 11/29/2024 8:30 AM EDT Treatment [facility] [address] [place] [phone] Melisa Rocha, CROWN ASSEMBLY MACHINE OPERATOR [address] [place] [address] [facility] Start: 11-26-2024 DIABETES SCREEN DIABETES SCREEN [facility] Start: 11-26-2024 End: 11-26-2024 ambulatory 11/26/2024 8:30 AM EDT Treatment [facility] [address] [place] [phone] Melisa Rocha, CROWN ASSEMBLY MACHINE OPERATOR [address] [place] [address] [facility] Start: 11-25-2024 End: 11-25-2024 ambulatory 11/25/2024 3:00 PM EDT Treatment [facility] [address] [place] [phone] Melisa Rocha, CROWN ASSEMBLY MACHINE OPERATOR [address] [place] [address] [facility] Start: 11-24-2024 End: 11-24-2024 ambulatory 11/24/2024 8:30 AM EDT Treatment [facility] [address] [place] [phone] Melisa Rocha, CROWN ASSEMBLY MACHINE OPERATOR [address] [place] [address] [facility] Start: 11-23-2024 End: 11-23-2024 ambulatory 11/23/2024 3:00 PM EDT Treatment [facility] [address] [place] [phone] Melisa Rocha, CROWN ASSEMBLY MACHINE OPERATOR [address] [place] [address] [facility] Start: 11-22-2024 End: 11-22-2024 ambulatory 11/22/2024 8:30 AM EDT Treatment [facility] [address] [place] [phone] Melisa Rocha, CROWN ASSEMBLY MACHINE OPERATOR [address] [place] [address] [facility] Start: 11-19-2024 End: 11-19-2024 ambulatory 11/19/2024 8:30 AM EDT Treatment [facility] [address] [place] [phone] Melisa Rocha, CROWN ASSEMBLY MACHINE OPERATOR [address] [place] [address] [facility] Start: 11-18-2024 End: 11-18-2024 ambulatory 11/18/2024 3:00 PM EDT Treatment [facility] [address] [place] [phone] Lupillo Bahena, PT [address] [place] [address] [facility] Start: 11-17-2024 End: 11-17-2024 ambulatory 11/17/2024 8:30 AM EDT Treatment [facility] [address] [place] [phone] Melisa Rocha, CROWN ASSEMBLY MACHINE OPERATOR [address] [place] [address] [facility] Start: 11-16-2024 End: 11-16-2024 ambulatory 11/16/2024 3:00 PM EDT Treatment [facility] [address] [place] [phone] Melisa Rocha, CROWN ASSEMBLY MACHINE OPERATOR [address] [place] [address] [facility] Start: 11-15-2024 End: 11-15-2024 ambulatory 11/15/2024 8:30 AM EDT Treatment [facility] [address] [place] [phone] Melisa Rocha, CROWN ASSEMBLY MACHINE OPERATOR [address] [place] [address] [facility] Start: 11-12-2024 End: 11-12-2024 ambulatory 11/12/2024 8:30 AM EDT Treatment [facility] [address] [place] [phone] Melisa Rocha, CROWN ASSEMBLY MACHINE OPERATOR [address] [place] [address] [facility] Start: 11-11-2024 End: 11-11-2024 ambulatory 11/11/2024 3:30 PM EDT Treatment [facility] [address] [place] [phone] Melisa Rocha, CROWN ASSEMBLY MACHINE OPERATOR [address] [place] [address] [facility] Start: 11-11-2024 End: 11-11-2024 Patient encounter procedure 11/11/2024 9:20 AM EDT Office Visit [facility] [address] [place] [address] Rolf Chung, ATHLETIC COACH [address] [place] [address] [facility] Start: 11-10-2024 End: 11-10-2024 ambulatory 11/10/2024 8:30 AM EDT Treatment [facility] [address] [place] [phone] Melisa Rocha, CROWN ASSEMBLY MACHINE OPERATOR [address] [place] [address] [facility] Start: 11-08-2024 End: 11-08-2024 ambulatory 11/08/2024 9:30 AM EDT Treatment [facility] [address] [place] [phone] Melisa Rocha, CROWN ASSEMBLY MACHINE OPERATOR [address] [place] [address] [facility] Start: 11-08-2024 End: 11-08-2024 Patient encounter procedure [facility] Comment on above: Arrived Start: 11-05-2024 End: 11-05-2024 ambulatory 11/05/2024 8:30 AM EDT Treatment [facility] [address] [place] [phone] Melisa Rocha, CROWN ASSEMBLY MACHINE OPERATOR [address] [place] [address] [facility] Start: 11-03-2024 End: 11-03-2024 ambulatory 11/03/2024 8:30 AM EDT Treatment [facility] [address] [place] [phone] Melisa Rocha, CROWN ASSEMBLY MACHINE OPERATOR [address] [place] [address] [facility] Start: 10-29-2024 End: 10-29-2024 ambulatory 10/29/2024 9:30 AM EDT Treatment [facility] [address] [place] [phone] Melisa Rocha, CROWN ASSEMBLY MACHINE OPERATOR [address] [place] [address] [facility] Start: 10-28-2024 Adult BMI Screening Adult BMI Screening [facility] Start: 10-28-2024 Tobacco Screening Tobacco Screening [facility] Start: 10-27-2024 End: 10-27-2024 ambulatory [facility] Comment on above: Arrived Start: 10-25-2024 End: 10-25-2024 ambulatory 10/25/2024 8:30 AM EDT Treatment [facility] [address] [place] [phone] Melisa Rocha, CROWN ASSEMBLY MACHINE OPERATOR [address] [place] [address] [facility] Start: 10-22-2024 End: 10-22-2024 ambulatory 10/22/2024 10:00 AM EDT Treatment [facility] [address] [place] [phone] Melisa Rocha, CROWN ASSEMBLY MACHINE OPERATOR [address] [place] [address] [facility] Start: 10-20-2024 End: 10-20-2024 ambulatory 10/20/2024 12:00 PM EDT Treatment [facility] [address] [place] [phone] Melisa Rocha, CROWN ASSEMBLY MACHINE OPERATOR [address] [place] [address] [facility] Start: 10-18-2024 End: 10-18-2024 ambulatory 10/18/2024 8:30 AM EDT Treatment [facility] [address] [place] [phone] Melisa Rocha, CROWN ASSEMBLY MACHINE OPERATOR [address] [place] [address] [facility] Start: 10-15-2024 End: 10-15-2024 ambulatory 10/15/2024 8:30 AM EDT Treatment [facility] [address] [place] [phone] Melisa Rocha, CROWN ASSEMBLY MACHINE OPERATOR [address] [place] [address] [facility] Start: 10-13-2024 End: 10-13-2024 ambulatory [facility] Comment on above: Arrived Start: 10-11-2024 End: 10-11-2024 ambulatory 10/11/2024 8:30 AM EDT Treatment [facility] [address] [place] [phone] Lupillo Bahena, PT [address] [place] [address] [facility] Start: 10-08-2024 End: 10-08-2024 ambulatory 10/08/2024 8:30 AM EDT Treatment [facility] [address] [place] [address] Melisa Rocha, CROWN ASSEMBLY MACHINE OPERATOR [address] [place] [address] [facility] Start: 10-06-2024 End: 10-06-2024 ambulatory 10/06/2024 8:30 AM EDT Treatment [facility] [address] [place] [phone] Melisa Rocha, CROWN ASSEMBLY MACHINE OPERATOR [address] [place] [address] [facility] Start: 10-04-2024 End: 10-04-2024 ambulatory 10/04/2024 8:30 AM EDT Treatment [facility] [address] [place] [phone] Melisa Rocha, CROWN ASSEMBLY MACHINE OPERATOR [address] [place] [address] [facility] Start: 10-01-2024 End: 10-01-2024 ambulatory [facility] Start: 09-30-2024 End: 09-30-2024 ambulatory 09/30/2024 10:30 AM EDT Treatment [facility] [address] [place] [phone] Melisa Rocha, CROWN ASSEMBLY MACHINE OPERATOR [address] [place] [address] [facility] Start: 09-29-2024 End: 09-30-2024 ECG COMPLETE ECG COMPLETE ECG Routine Chronic myeloid leukemia (HCC) Expected: 09/29/2024, Expires: 09/30/2024 [facility] Comment on above: Expected: 09/29/2024, Expires: Start: 09-29-2024 End: 09-30-2024 MISC SEND OUT TST 1 MISC SEND OUT TST 1 Lab Routine Chronic myeloid leukemia (HCC) Expected: 09/29/2024, Expires: 09/30/2024 [facility] Work Phone: Comment on above: Expected: 09/29/2024, Expires: Start: 09-29-2024 End: 09-29-2024 ambulatory 09/29/2024 8:30 AM EDT Treatment [facility] [address] [place] [phone] Melisa Rocha, ANNETTA [address] [place] [address] [facility] Start: 09-27-2024 End: 09-27-2024 Patient encounter procedure 09/27/2024 9:30 AM EDT Office Visit [facility] [address] [place] [phone] Yaniv Hernandez, ATHLETIC COACH [address] [place] [address] [facility] Start: 09-27-2024 End: 09-27-2024 ambulatory [facility] Comment on above: Arrived Start: 09-24-2024 End: 09-24-2024 ambulatory 09/24/2024 8:30 AM EDT Treatment [facility] [address] [place] [phone] Chelly Arce PTA [facility] Start: 09-23-2024 End: 09-23-2024 ambulatory 09/23/2024 9:30 AM EDT Treatment [facility] [address] [place] [phone] Lupillo Bahena, PT [address] [place] [address] [facility] Start: 09-22-2024 End: 09-22-2024 ambulatory 09/22/2024 8:30 AM EDT Treatment [facility] [address] [place] [phone] Melisa Rocha, CROWN ASSEMBLY MACHINE OPERATOR [address] [place] [address] [facility] Start: 09-20-2024 End: 09-20-2024 ambulatory 09/20/2024 8:30 AM EDT Treatment [facility] [address] [place] [phone] Melisa Rocha, CROWN ASSEMBL[employer] [address] [place] [address] [facility] Start: 09-17-2024 End: 09-17-2024 ambulatory 09/17/2024 8:30 AM EDT Treatment [facility] [address] [place] [id number] Lupillo Bahena, PT [address] [place] [address] [facility] Start: 09-16-2024 End: 09-16-2024 ambulatory [facility] Comment on above: Arrived Start: 09-15-2024 End: 09-16-2024 BCR/ABL1 [id number] QUANTITATIVE PCR BLOOD [facility] Comment on above: Expected: 09/15/2024, Expires: Start: 09-15-2024 End: 09-16-2024 ECG COMPLETE ECG COMPLETE ECG Routine Chronic myeloid leukemia (HCC) Expected: 09/15/2024, Expires: 09/16/2024 [facility] Comment on above: Expected: 09/15/2024, Expires: Start: 09-15-2024 End: 09-16-2024 MISC SEND OUT TST 1 MISC SEND OUT TST 1 Lab Routine Chronic myeloid leukemia (HCC) Expected: 09/15/2024, Expires: 09/16/2024 [facility] Work Phone: Comment on above: Expected: 09/15/2024, Expires: Start: 09-15-2024 End: 09-15-2024 Nursing evaluation of patient and report 09/15/2024 11:00 AM EDT Nurse Visit Hematology/Oncology [id number] [place] [address] Paula Tuttle, RN [address] [place] [address] STUDY PT Hematology/Oncology Comment on above: STUDY PT Start: 09-15-2024 End: 09-15-2024 ambulatory [facility] Comment on above: STUDY PT Start: 09-15-2024 End: 09-15-2024 Patient encounter procedure 09/15/2024 8:00 AM EDT Office Visit Vascular Medicine [address] [id number] STUDY PT Vascular Medicine Comment on above: STUDY PT Start: 09-14-2024 Hemoglobin A1c measurement [facility] Start: 09-13-2024 End: 09-13-2024 ambulatory 09/13/2024 10:30 AM EDT Treatment [facility] [address] [place] [address] Melisa Rocha, CROWN ASSEMBLY MACHINE OPERATOR [address] [place], [place] [phone] [facility] Start: 09-10-2024 End: 09-10-2024 Admission to same day surgery center [facility] Comment on above: DIAGNOSTIC BONE MARROW BIOPSY(IES) Start: 09-10-2024 End: 09-10-2024 Diagnostic bone marrow biopsies DIAGNOSTIC BONE MARROW BIOPSY(IES) CML (chronic myeloid leukemia) (HCC) 09/10/2024 8:00 AM EDT [facility] HB6 Start: 09-10-2024 Subsequent hospital visit by physician [facility] Comment on above: CML (chronic myeloid leukemia) (HCC) [C9 2.10] Start: 09-09-2024 End: 09-09-2024 ambulatory [facility] Comment on above: Tear of left supraspinatus tendon Start: 09-08-2024 End: 09-08-2024 Patient encounter procedure 09/08/2024 12:30 PM EDT Office Visit Vascular Medicine [address] [place] [address] Echo to research no auth needed Vascular Medicine Comment on above: Echo to research no auth needed Start: 09-08-2024 End: 09-08-2024 Nursing evaluation of patient and report 09/08/2024 9:00 AM EDT Nurse Visit Hematology/Oncology [address] [place] [address] Paula Tuttle, RN [address] [place] [address] STUDY PT Hematology/Oncology Comment on above: STUDY PT Start: 09-08-2024 End: 09-08-2024 ambulatory [facility] [address] [place] Comment on above: STUDY PT ekg to research Start: 09-06-2024 End: 09-06-2024 Patient encounter procedure 09/06/2024 12:00 PM EDT Office Visit [facility] [address] [facility] [address] [place] [phone] Yan Durham MD [address] [place] [address] [facility] Start: 09-03-2024 DIABETES SCREEN DIABETES SCREEN [facility] Start: 08-30-2024 End: 08-30-2024 Patient encounter procedure 08/30/2024 8:30 AM EDT Office Visit [facility] [address] [place] [phone] Yaniv Hernandez, YANE [address] [place], [place] [phone] [facility] Start: 08-28-2024 BP Controlled (<130/80) BP Controlled (<130/80) [facility] in Start: 08-13-2024 End: 08-13-2024 Admission to same day surgery center 08/13/2024 10:30 AM EST - 08/13/2024 11:00 AM EST Surgery [facility] - Surgery [address] [place] [phone] Lena Gandara MD [address] [place] [address] COLONOSCOPY DIAGNOSTIC / SCREENING [79771 (CPT )] [facility] Comment on above: COLONOSCOPY DIAGNOSTIC / SCREENING [4537 8 (CPT )] Start: 08-13-2024 End: 08-13-2024 Colonoscopy flx dx w/collj spec when pfrmd COLONOSCOPY DIAGNOSTIC / SCREENING Screen for colon cancer 08/13/2024 10:30 AM [facility] Start: 08-13-2024 Subsequent hospital visit by physician 08/13/2024 10:30 AM EST Hospital Encounter [facility] [address] [place] [address] Lena Gandara MD [address] [place] [address] [facility] Start: 08-11-2024 End: 08-11-2025 Microalbumin/Creatinine panel in random Urine Microalbumin / creatinine, urine ratio Lab Routine Essential (primary) hypertension (CMS/HCC) 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) Expected: 08/11/2024 (Approximate), Expires: 08/11/2025 [facility] Work Phone: Comment on above: Expected: 08/11/2024 (Approximate), Expi res: 08/11/2025 Start: 08-11-2024 End: 08-11-2025 Prostate specific Ag [Mass/volume] in Serum or Plasma PSA Lab Routine Screening for prostate cancer Expected: 08/11/2024 (Approximate), Expires: 08/11/2025 [facility] [employer] Comment on above: Expected: 08/11/2024 (Approximate), Expi res: 08/11/2025 Start: 08-11-2024 End: 08-11-2025 Urinalysis with microscopic (reflex culture if indicated) Urinalysis with microscopic (reflex culture if indicated) Lab Routine Essential (primary) hypertension (CMS/HCC) 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) Expected: 08/11/2024 (Approximate), Expires: 08/11/2025 [facility] Comment on above: Expected: 08/11/2024 (Approximate), Expi res: 08/11/2025 Start: 08-11-2024 End: 08-11-2024 Patient encounter procedure [facility] Comment on above: Obstructive sleep apnea (adult) (pediatr ic) (Primary Dx); Morbid (severe) obesity due to excess calories (CMS/HCC); Essential (primary) hypertension (CMS/HCC); Body mass index (BMI) 36.0-36.9, adult; 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); Chronic myeloid leukemia, BCR/ABL-positive, not having achieved remission ([facility]/HCC); Type 2 diabetes mellitus with hyperglycemia ([facility]/HCC); termite helper (current) use of insulin (CMS/HCC); Other hypertrophic cardiomyopathy (CMS/HCC); 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); Mixed hyperlipidemia (CMS/HCC); Hypertrophic cardiomyopathy ([facility]/HCC); LVH (left ventricular hypertrophy); Type 2 diabetes mellitus with hyperglycemia, with long-term current use of insulin ([facility]/HCC); Screening for prostate cancer Start: 08-06-2024 Urine screening for protein Diabetes: Urine Protein Screening [facility] Start: 08-05-2024 End: 08-05-2024 ambulatory 08/05/2024 3:30 PM EST Support Visit [facility] Admit [address] [place] [address] [facility] Pre Admit Start: 08-02-2024 End: 08-02-2024 Patient encounter procedure [facility] Start: 07-24-2024 Adult BMI Screening Adult BMI Screening [facility] Start: 07-19-2024 End: 07-19-2024 Patient encounter procedure 07/19/2024 3:00 PM EST Office Visit Endocrinology [address] [place] [address] Alexx Dalal, JEANNIE.EAR NOSE THROAT PHYSICIAN [address] [facility] [place] [address] Return in about 3 months (around 07/17/2024). Endocrinology Comment on above: Return in about 3 months (around ). Start: 07-09-2024 Hepatitis B surface antibody level LDL Cholesterol [facility] Start: 07-06-2024 End: 07-06-2024 Patient encounter procedure [facility] Comment on above: Sprain of left shoulder, initial encount er (Primary Dx); Tear of left supraspinatus tendon Start: 07-05-2024 End: 07-05-2024 Patient encounter procedure 07/05/2024 1:00 PM EST Office Visit [facility] [address] [place] [address] Jr. Kapil Kilpatrick , DO [address] [facility] [address] [place] [address] [facility] Start: 06-30-2024 Adult BMI Screening Adult BMI Screening [facility] Start: 06-30-2024 Tobacco Screening Tobacco Screening [facility] Start: 06-18-2024 End: 06-18-2024 Patient encounter procedure [facility] Comment on above: Arrived Start: 06-17-2024 Hemoglobin A1c measurement [facility] Start: 06-16-2024 End: 06-16-2024 Patient encounter procedure 06/16/2024 12:30 PM EST Office Visit Vascular Medicine [address] [place] [address] echo to research no auth needed Vascular Medicine Comment on above: echo to research no auth needed Start: 06-16-2024 End: 06-16-2024 Nursing evaluation of patient and report 06/16/2024 10:00 AM EST Nurse Visit Hematology/Oncology [address] [place] [address] Paula Tuttle, RN [address] [place] [address] STUDY PT Hematology/Oncology Comment on above: STUDY PT Start: 06-16-2024 End: 06-16-2024 ambulatory [facility] [address] Comment on above: STUDY PT ekg to research Start: 05-31-2024 End: 05-31-2024 Patient encounter procedure 05/31/2024 3:20 PM EST Office Visit [facility] [address] [place] [address] Rolf Chung, ATHLETIC COACH [address] [place] [phone] [facility] Start: 04-27-2024 End: 04-27-2024 Patient encounter procedure 04/27/2024 3:20 PM EST Office Visit [facility] [address] [place] [address] Rolf Chung, ATHLETIC COACH [address] [place] [address] Essential (primary) hypertension (CMS/HCC) (Primary Dx); 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/HCC); Morbid (severe) obesity due to excess calories (CMS/HCC); Type 2 diabetes mellitus with hyperglycemia, with long-term current use of insulin (CMS/HCC); Chronic myeloid leukemia (CMS/HCC); Primary hypertension (CMS/HCC); Mixed hyperlipidemia (CMS/HCC) [facility] Comment on above: Essential (primary) hypertension (CMS/HC C) (Primary Dx); 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/HCC); Morbid (severe) obesity due to excess calories (CMS/HCC); Type 2 diabetes mellitus with hyperglycemia, with long-term current use of insulin (CMS/HCC); Chronic myeloid leukemia (CMS/HCC); Primary hypertension (CMS/HCC); Mixed hyperlipidemia (CMS/HCC) Start: 04-17-2024 Hepatitis B screening Urine Albumin:Creatinine Ratio [facility] Start: 04-16-2024 End: 04-16-2024 Patient encounter procedure 04/16/2024 3:30 PM EST Office Visit Endocrinology [address] [place] [address] Alexx Dalal APRN.EAR NOSE THROAT PHYSICIAN [address] [place] [address] 6 months (around 02/29/2024 Endocrinology Comment on above: 6 months (around 02/29/2024 Start: 04-16-2024 End: 07-16-2024 Microalbumin/Creatinine [Mass Ratio] in Urine ALBUMIN/CREATININE RATIO, URINE Lab Routine Type 2 diabetes mellitus with microalbuminuria, with long-term current use of insulin (HCC) Expected: 04/16/2024, Expires: 07/16/2024 [facility] Work Phone: Comment on above: Expected: 04/16/2024, Expires: Start: 04-01-2024 Hemoglobin A1c measurement HbA1C [facility] Start: 04-01-2024 End: 04-01-2024 Patient encounter procedure 04/01/2024 2:00 PM EDT Office Visit [facility] [address] [place] [phone] Rolf Chung NP [address] [place] [address] [facility] Start: 03-29-2024 End: 03-29-2024 Patient encounter procedure [facility] Comment on above: Arrived Start: 03-25-2024 Hemoglobin A1c measurement [facility] Start: 03-19-2024 End: 03-19-2024 Admission to same day surgery center [facility] Comment on above: DIAGNOSTIC BONE MARROW BIOPSY(IES) Start: 03-19-2024 End: 03-19-2024 Diagnostic bone marrow biopsies DIAGNOSTIC BONE MARROW BIOPSY(IES) CML (chronic myeloid leukemia) ([facility]) 03/19/2024 8:00 AM EDT [facility] HB6 Start: 03-19-2024 Subsequent hospital visit by physician [facility] Comment on above: CML (chronic myeloid leukemia) (HCC) [C9 2.10] Start: 03-17-2024 End: 03-18-2024 Amylase [Enzymatic activity/volume] in Serum or Plasma AMYLASE Lab Routine Chronic myeloid leukemia (HCC) Expected: 03/17/2024, Expires: 03/18/2024 [facility] Comment on above: Expected: 03/17/2024, Expires: Start: 03-17-2024 End: 03-18-2024 aPTT in Platelet poor plasma by Coagulation assay ACTIVATED PARTIAL THROMBOPLASTIN TIME Lab Routine Chronic myeloid leukemia (HCC) Expected: 03/17/2024, Expires: 03/18/2024 [facility] Comment on above: Expected: 03/17/2024, Expires: Start: 03-17-2024 End: 03-18-2024 BCR/ABL1 P210 QUANTITATIVE PCR BLOOD BCR/ABL1 P210 QUANTITATIVE PCR BLOOD Lab Routine Chronic myeloid leukemia (HCC) Expected: 03/17/2024, Expires: 03/18/2024 [facility] Comment on above: Expected: 03/17/2024, Expires: Start: 03-17-2024 End: 03-18-2024 Bilirubin.conjugated [Mass/volume] in Serum or Plasma BILIRUBIN, CONJUGATED Lab Routine Chronic myeloid leukemia (HCC) Expected: 03/17/2024, Expires: 03/18/2024 [facility] Comment on above: Expected: 03/17/2024, Expires: Start: 03-17-2024 End: 03-18-2024 CBC W Auto Differential panel - Blood COMPLETE BLOOD COUNT AND DIFFERENTIAL Lab Routine Chronic myeloid leukemia (HCC) Expected: 03/17/2024, Expires: 03/18/2024 [facility] Work Phone: Comment on above: Expected: 03/17/2024, Expires: Start: 03-17-2024 End: 03-18-2024 Cholesterol [Mass/volume] in Serum or Plasma TOTAL CHOLESTEROL Lab Routine Chronic myeloid leukemia (HCC) Expected: 03/17/2024, Expires: 03/18/2024 [facility] Comment on above: Expected: 03/17/2024, Expires: Start: 03-17-2024 End: 03-18-2024 Comprehensive metabolic 2000 panel - Serum or Plasma COMPREHENSIVE METABOLIC PANEL Lab Routine Chronic myeloid leukemia (HCC) Expected: 03/17/2024, Expires: 03/18/2024 [facility] Comment on above: Expected: 03/17/2024, Expires: Start: 03-17-2024 End: 03-18-2024 Creatine kinase [Enzymatic activity/volume] in Serum or Plasma CREATINE KINASE/CK Lab Routine Chronic myeloid leukemia (HCC) Expected: 03/17/2024, Expires: 03/18/2024 [facility] Comment on above: Expected: 03/17/2024, Expires: Start: 03-17-2024 End: 03-18-2024 ECG COMPLETE ECG COMPLETE ECG Routine Chronic myeloid leukemia (HCC) Expected: 03/17/2024, Expires: 03/18/2024 [facility] Comment on above: Expected: 03/17/2024, Expires: Start: 03-17-2024 End: 03-18-2024 Echocardiography ECHO Cardiology Routine Chronic myeloid leukemia (HCC) Expected: 03/17/2024, Expires: 03/18/2024 [facility] Comment on above: Expected: 03/17/2024, Expires: Start: 03-17-2024 End: 03-18-2024 Hemoglobin A1c in Blood HEMOGLOBIN A1C Lab Routine Chronic myeloid leukemia (HCC) Expected: 03/17/2024, Expires: 03/18/2024 [facility] Comment on above: Expected: 03/17/2024, Expires: Start: 03-17-2024 End: 03-18-2024 HIGH SENSITIVITY TROPONIN T HIGH SENSITIVITY TROPONIN T Lab Routine Chronic myeloid leukemia (HCC) Expected: 03/17/2024, Expires: 03/18/2024 [facility] Comment on above: Expected: 03/17/2024, Expires: Start: 03-17-2024 End: 03-18-2024 Lipase [Enzymatic activity/volume] in Serum or Plasma LIPASE Lab Routine Chronic myeloid leukemia (HCC) Expected: 03/17/2024, Expires: 03/18/2024 [facility] Comment on above: Expected: 03/17/2024, Expires: Start: 03-17-2024 End: 03-18-2024 Magnesium [Mass/volume] in Serum or Plasma MAGNESIUM Lab Routine Chronic myeloid leukemia (HCC) Expected: 03/17/2024, Expires: 03/18/2024 [facility] Comment on above: Expected: 03/17/2024, Expires: 4 Start: 03-17-2024 End: 03-18-2024 MISC SEND OUT TST 1 MISC SEND OUT TST 1 Lab Routine Chronic myeloid leukemia (HCC) Expected: 03/17/2024, Expires: 03/18/2024 [facility] Comment on above: Expected: 03/17/2024, Expires: Start: 03-17-2024 End: 03-18-2024 Phosphate [Mass/volume] in Serum or Plasma PHOSPHORUS INORGANIC Lab Routine Chronic myeloid leukemia (HCC) Expected: 03/17/2024, Expires: 03/18/2024 [facility] Comment on above: Expected: 03/17/2024, Expires: Start: 03-17-2024 End: 03-18-2024 PT panel - Platelet poor plasma by Coagulation assay PROTHROMBIN TIME Lab Routine Chronic myeloid leukemia (HCC) Expected: 03/17/2024, Expires: 03/18/2024 [facility] Comment on above: Expected: 03/17/2024, Expires: Start: 03-17-2024 End: 03-18-2024 Triglyceride [Mass/volume] in Serum or Plasma TRIGLYCERIDES Lab Routine Chronic myeloid leukemia (HCC) Expected: 03/17/2024, Expires: 03/18/2024 [facility] Comment on above: Expected: 03/17/2024, Expires: Start: 03-17-2024 End: 03-18-2024 Urate [Mass/volume] in Serum or Plasma URIC ACID Lab Routine Chronic myeloid leukemia (HCC) Expected: 03/17/2024, Expires: 03/18/2024 [facility] Comment on above: Expected: 03/17/2024, Expires: Start: 03-17-2024 End: 03-18-2024 URINALYSIS, DIPSTICK ONLY URINALYSIS, DIPSTICK ONLY Lab Routine Chronic myeloid leukemia (HCC) Expected: 03/17/2024, Expires: 03/18/2024 [facility] Comment on above: Expected: 03/17/2024, Expires: Start: 03-17-2024 End: 03-17-2024 Patient encounter procedure 03/17/2024 12:30 PM EDT Office Visit Vascular Medicine [address] [place] [address] ECHO HEART, LIMITED Vascular Medicine Comment on above: ECHO HEART, LIMITED Start: 03-17-2024 End: 03-17-2024 Nursing evaluation of patient and report 03/17/2024 11:30 AM EDT Nurse Visit Hematology/Oncology [address] [place] [address] Paula Tuttle, RN [address] [place] [address] ECHO HEART, LIMITED Hematology/Oncology Comment on above: ECHO HEART, LIMITED Start: 03-17-2024 End: 03-17-2024 [facility] [address] Comment on above: ECHO HEART, LIMITED Start: 03-08-2024 End: 03-08-2024 Patient encounter procedure 03/08/2024 8:30 AM EDT Office Visit Endocrinology [address] [facility] [place] [address] Alexx Dalal, SALES AGENT CASUALTY INSURANCE.EAR NOSE THROAT PHYSICIAN [address] [place] [address] 6 months (around 02/29/2024 Endocrinology Comment on above: 6 months (around 02/29/2024 Start: 03-03-2024 End: 03-03-2024 Patient encounter procedure [facility] Start: 03-01-2024 End: 03-01-2024 Patient encounter procedure 03/01/2024 11:00 AM EDT Office Visit [facility] [address] [place] [phone] Jr. Kapil Kilpatrick, DO [address] [place] [address] [facility] Start: 02-26-2024 End: 02-26-2024 Patient encounter procedure [facility] Comment on above: Arrived Start: 02-25-2024 End: 02-25-2024 Patient encounter procedure 02/25/2024 2:00 PM EDT Office Visit [facility] [address] [place] [address] Jr. Kapil Kilpatrick C, DO [address] [facility] [address] [place] [address] [facility] Start: 02-08-2024 Influenza vaccination [facility] Start: 01-07-2024 Hemoglobin A1c measurement HbA1C [facility] Start: 12-24-2023 End: 12-25-2023 Amylase [Enzymatic activity/volume] in Serum or Plasma AMYLASE BLD Lab Routine Chronic myeloid leukemia (HCC) Expected: 12/24/2023, Expires: 12/25/2023 [facility] Work Phone: Comment on above: Expected: 12/24/2023, Expires: Start: 12-24-2023 End: 12-25-2023 aPTT in Platelet poor plasma by Coagulation assay ACTIVATED PTT Lab Routine Chronic myeloid leukemia (HCC) Expected: 12/24/2023, Expires: 12/25/2023 [facility] Work Phone: Comment on above: Expected: 12/24/2023, Expires: Start: 12-24-2023 End: 12-25-2023 BCR/ABL1 P210 QUANTITATIVE PCR BLOOD BCR/ABL1 P210 QUANTITATIVE PCR BLOOD Lab Routine Chronic myeloid leukemia (HCC) Expected: 12/24/2023, Expires: 12/25/2023 [facility] Work Phone: Comment on above: Expected: 12/24/2023, Expires: 4 Start: 12-24-2023 End: 12-25-2023 Bilirubin.conjugated [Mass/volume] in Serum or Plasma BILIRUBIN DIRECT BLD Lab Routine Chronic myeloid leukemia (HCC) Expected: 12/24/2023, Expires: 12/25/2023 [facility] Work Phone: Comment on above: Expected: 12/24/2023, Expires: Start: 12-24-2023 End: 12-25-2023 CBC W Auto Differential panel - Blood CBC + DIFF Lab Routine Chronic myeloid leukemia (HCC) Expected: 12/24/2023, Expires: 12/25/2023 [facility] Work Phone: Comment on above: Expected: 12/24/2023, Expires: Start: 12-24-2023 End: 12-25-2023 Cholesterol [Mass/volume] in Serum or Plasma CHOLESTEROL BLD Lab Routine Chronic myeloid leukemia (HCC) Expected: 12/24/2023, Expires: 12/25/2023 [facility] Work Phone: Comment on above: Expected: 12/24/2023, Expires: Start: 12-24-2023 End: 12-25-2023 Comprehensive metabolic 2000 panel - Serum or Plasma COMP METABOLIC PANEL Lab Routine Chronic myeloid leukemia (HCC) Expected: 12/24/2023, Expires: 12/25/2023 [facility] Work Phone: Comment on above: Expected: 12/24/2023, Expires: Start: 12-24-2023 End: 12-25-2023 Creatine kinase [Enzymatic activity/volume] in Serum or Plasma CK CREATINE KINASE Lab Routine Chronic myeloid leukemia (HCC) Expected: 12/24/2023, Expires: 12/25/2023 [facility] Work Phone: Comment on above: Expected: 12/24/2023, Expires: Start: 12-24-2023 End: 12-25-2023 ECG COMPLETE ECG COMPLETE ECG Routine Chronic myeloid leukemia (HCC) Expected: 12/24/2023, Expires: 12/25/2023 [facility] Work Phone: Comment on above: Expected: 12/24/2023, Expires: Start: 12-24-2023 End: 12-25-2023 Echocardiography ECHO Cardiology Routine Chronic myeloid leukemia (HCC) Expected: 12/24/2023, Expires: 12/25/2023 [facility] Work Phone: Comment on above: Expected: 12/24/2023, Expires: Start: 12-24-2023 End: 12-25-2023 Hemoglobin A1c in Blood HGB A1C Lab Routine Chronic myeloid leukemia (HCC) Expected: 12/24/2023, Expires: 12/25/2023 [facility] Work Phone: Comment on above: Expected: 12/24/2023, Expires: Start: 12-24-2023 End: 12-25-2023 HIGH SENSITIVITY TROPONIN T HIGH SENSITIVITY TROPONIN T Lab Routine Chronic myeloid leukemia (HCC) Expected: 12/24/2023, Expires: 12/25/2023 [facility] Work Phone: Comment on above: Expected: 12/24/2023, Expires: Start: 12-24-2023 End: 12-25-2023 Lipase [Enzymatic activity/volume] in Serum or Plasma LIPASE BLD Lab Routine Chronic myeloid leukemia (HCC) Expected: 12/24/2023, Expires: 12/25/2023 [facility] Work Phone: Comment on above: Expected: 12/24/2023, Expires: Start: 12-24-2023 End: 12-25-2023 Magnesium [Mass/volume] in Serum or Plasma MAGNESIUM BLD Lab Routine Chronic myeloid leukemia (HCC) Expected: 12/24/2023, Expires: 12/25/2023 [facility] Work Phone: Comment on above: Expected: 12/24/2023, Expires: 4 Start: 12-24-2023 End: 12-25-2023 MISC SEND OUT TST 1 MISC SEND OUT TST 1 Lab Routine Chronic myeloid leukemia (HCC) Expected: 12/24/2023, Expires: 12/25/2023 [facility] Work Phone: Comment on above: Expected: 12/24/2023, Expires: 4 Start: 12-24-2023 End: 12-25-2023 Phosphate [Mass/volume] in Serum or Plasma PHOSPHORUS INORGANIC Lab Routine Chronic myeloid leukemia (HCC) Expected: 12/24/2023, Expires: 12/25/2023 [facility] Work Phone: Comment on above: Expected: 12/24/2023, Expires: Start: 12-24-2023 End: 12-25-2023 PT panel - Platelet poor plasma by Coagulation assay PROTHROMBIN TIME/PT Lab Routine Chronic myeloid leukemia (HCC) Expected: 12/24/2023, Expires: 12/25/2023 [facility] Work Phone: Comment on above: Expected: 12/24/2023, Expires: Start: 12-24-2023 End: 12-25-2023 Triglyceride [Mass/volume] in Serum or Plasma TRIGLYCERIDES BLD Lab Routine Chronic myeloid leukemia (HCC) Expected: 12/24/2023, Expires: 12/25/2023 [facility] Work Phone: Comment on above: Expected: 12/24/2023, Expires: Start: 12-24-2023 End: 12-25-2023 Urate [Mass/volume] in Serum or Plasma URIC ACID BLOOD Lab Routine Chronic myeloid leukemia (HCC) Expected: 12/24/2023, Expires: 12/25/2023 [facility] Work Phone: Comment on above: Expected: 12/24/2023, Expires: Start: 12-24-2023 End: 12-25-2023 URINALYSIS, DIPSTICK ONLY URINALYSIS, DIPSTICK ONLY Lab Routine Chronic myeloid leukemia (HCC) Expected: 12/24/2023, Expires: 12/25/2023 [facility] Work Phone: Comment on above: Expected: 12/24/2023, Expires: Start: 12-24-2023 End: 12-24-2023 Patient encounter procedure 12/24/2023 10:40 AM EDT Office Visit [facility] [address] [id number] STUDY PT Vascular Medicine Comment on above: STUDY PT Start: 12-24-2023 End: 12-24-2023 Nursing evaluation of patient and report Hematology/Oncology Comment on above: STUDY PT Start: 12-24-2023 End: 12-24-[address]23 [address] [facility] [address] Quintanilla Comment on above: STUDY PT Start: 12-09-2023 [facility] Start: 12-02-2023 End: 12-01-2024 Basic metabolic 2000 panel - Serum or Plasma [facility] Work Phone: Comment on above: Expected: 12/02/2023, Expires: Start: 12-02-2023 End: 12-01-2024 CBC W Auto Differential panel - Blood [facility] Work Phone: Comment on above: Expected: 12/02/2023, Expires: Start: 12-02-2023 End: 12-01-2024 Protime & INR [facility] Work Phone: Comment on above: Expected: 12/02/2023, Expires: Start: 11-25-2023 Glaucoma screening Diabetes: Retinopathy Screening [facility] Start: 10-09-2023 End: 01-08-2024 MISC SEND OUT TST 1 MISC SEND OUT TST 1 Lab Routine CML (chronic myeloid leukemia) (HCC) Expected: 10/09/2023, Expires: 01/08/2024 [facility] Work Phone: Comment on above: Expected: 10/09/2023, Expires: 4 Start: 10-03-2023 End: 10-03-2023 Admission to same day surgery center 10/03/2023 8:00 AM EDT - 10/03/2023 9:09 AM EDT Surgery [facility] [address] [place] [address] Rafael Hahn MD [address] [place] [address] DIAGNOSTIC BONE MARROW BIOPSY(IES) [facility] Comment on above: DIAGNOSTIC BONE MARROW BIOPSY(IES) Start: 10-03-2023 End: 10-03-2023 Diagnostic bone marrow biopsies DIAGNOSTIC BONE MARROW BIOPSY(IES) CML (chronic myeloid leukemia) (HCC) 10/03/2023 8:00 AM EDT [facility] HB6 Start: 10-03-2023 Subsequent hospital visit by physician 10/03/2023 8:00 AM EDT Hospital Encounter [facility] [address] [place] [address] Rafael Hahn MD [address] [place] [address] 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] [facility] Comment on above: CML (chronic myeloid leukemia) (HCC) [C9 2.10] Start: 09-11-2023 End: 09-11-2023 Patient encounter procedure 09/11/2023 4:30 PM EDT Office Visit [facility] [address] [place] [id number] Nichole Desir MD [address] [place] [address] [facility] Start: 07-18-2023 Hemoglobin A1c measurement HbA1C [facility] Start: 07-18-2023 Hemoglobin A1c/Hemoglobin.total in Blood HbA1C [facility] Start: 07-01-2023 End: 07-01-2023 Patient encounter procedure 07/01/2023 9:00 AM EST Appointment [facility] - Cardiovascular [address] [place] [id number] Yan Durham MD [address] [place] [address] [facility] Start: 06-30-2023 End: 06-30-2024 Holter monitor study Holter monitor 24-48 hour Cardiac Services Routine Abnormal ECG LVH (left ventricular hypertrophy) Hypertrophic cardiomyopathy ([facility]-HCC) Palpitations Expected: 06/30/2023, Expires: 06/30/2024 [facility] Comment on above: Expected: 06/30/2023, Expires: 5 Start: 06-30-2023 End: 06-30-2024 MR Heart WO and W contrast IV MR cardiac for morphology with and without contrast Imaging Routine Abnormal ECG LVH (left ventricular hypertrophy) Hypertrophic cardiomyopathy (CMS-HCC) Expected: 06/30/2023, Expires: 06/30/2024 [facility] Work Phone: Comment on above: Expected: 06/30/2023, Expires: 5 Start: 06-09-2023 Behavioral Health Screening Behavioral Health Screening [facility] Start: 06-09-2023 Depression Assessment Depression Assessment [facility] Start: 04-24-2023 Hemoglobin A1c/Hemoglobin.total in Blood HBA1C [facility] Start: 04-18-2023 End: 07-18-2023 BCR/ABL1 P190 QUANTITATIVE PCR BONE MARROW BCR/ABL1 P190 QUANTITATIVE PCR BONE MARROW Lab Routine CML (chronic myeloid leukemia) ([facility]) Expected: 04/18/2023, Expires: 07/18/2023 [facility] Work Phone: Comment on above: Expected: 04/18/2023, Expires: 4 Start: 04-18-2023 End: 07-18-2023 Comprehensive metabolic 2000 panel - Serum or Plasma [facility] Work Phone: Comment on above: Expected: 04/18/2023, Expires: 4 Start: 04-16-2023 End: 04-17-2023 Amylase [Enzymatic activity/volume] in Serum or Plasma AMYLASE BLD Lab Routine Chronic myeloid leukemia (HCC) Expected: 04/16/2023, Expires: 04/17/2023 [facility] Work Phone: Comment on above: Expected: 04/16/2023, Expires: 3 Start: 04-16-2023 End: 04-17-2023 aPTT in Platelet poor plasma by Coagulation assay ACTIVATED PTT Lab Routine Chronic myeloid leukemia (HCC) Expected: 04/16/2023, Expires: 04/17/2023 [facility] Work Phone: Comment on above: Expected: 04/16/2023, Expires: Start: 04-16-2023 End: 04-17-2023 BCR/ABL1 P190 QUANTITATIVE PCR BONE MARROW BCR/ABL1 P190 QUANTITATIVE PCR BONE MARROW Lab Routine Chronic myeloid leukemia (HCC) Expected: 04/16/2023, Expires: 04/17/2023 [facility] Work Phone: Comment on above: Expected: 04/16/2023, Expires: Start: 04-16-2023 End: 04-17-2023 BCR/ABL1 P210 QUANTITATIVE PCR BLOOD BCR/ABL1 P210 QUANTITATIVE PCR BLOOD Lab Routine Chronic myeloid leukemia (HCC) Expected: 04/16/2023, Expires: 04/17/2023 [facility] Work Phone: Comment on above: Expected: 04/16/2023, Expires: Start: 04-16-2023 End: 04-17-2023 Bilirubin.conjugated [Mass/volume] in Serum or Plasma BILIRUBIN DIRECT BLD Lab Routine Chronic myeloid leukemia (HCC) Expected: 04/16/2023, Expires: 04/17/2023 [facility] Work Phone: Comment on above: Expected: 04/16/2023, Expires: 3 Start: 04-16-2023 End: 04-17-2023 CBC W Auto Differential panel - Blood CBC + DIFF Lab Routine Chronic myeloid leukemia (HCC) Expected: 04/16/2023, Expires: 04/17/2023 [facility] Work Phone: Comment on above: Expected: 04/16/2023, Expires: Start: 04-16-2023 End: 04-17-2023 Cholesterol [Mass/volume] in Serum or Plasma CHOLESTEROL BLD Lab Routine Chronic myeloid leukemia (HCC) Expected: 04/16/2023, Expires: 04/17/2023 [facility] Work Phone: Comment on above: Expected: 04/16/2023, Expires: Start: 04-16-2023 End: 04-17-2023 CLINICAL TRIAL DRAW CLINICAL TRIAL DRAW Lab Routine Chronic myeloid leukemia (HCC) Expected: 04/16/2023, Expires: 04/17/2023 [facility] Work Phone: Comment on above: Expected: 04/16/2023, Expires: 3 Start: 04-16-2023 End: 04-17-2023 Comprehensive metabolic 2000 panel - Serum or Plasma COMP METABOLIC PANEL Lab Routine Chronic myeloid leukemia (HCC) Expected: 04/16/2023, Expires: 04/17/2023 [facility] Work Phone: Comment on above: Expected: 04/16/2023, Expires: Start: 04-16-2023 End: 04-17-2023 Creatine kinase [Enzymatic activity/volume] in Serum or Plasma CK CREATINE KINASE Lab Routine Chronic myeloid leukemia (HCC) Expected: 04/16/2023, Expires: 04/17/2023 [facility] Work Phone: Comment on above: Expected: 04/16/2023, Expires: 3 Start: 04-16-2023 End: 04-17-2023 ECG COMPLETE ECG COMPLETE ECG Routine Chronic myeloid leukemia (HCC) Expected: 04/16/2023, Expires: 04/17/2023 [facility] Work Phone: Comment on above: Expected: 04/16/2023, Expires: 3 Start: 04-16-2023 End: 04-17-2023 HIGH SENSITIVITY TROPONIN T HIGH SENSITIVITY TROPONIN T Lab Routine Chronic myeloid leukemia (HCC) Expected: 04/16/2023, Expires: 04/17/2023 [facility] Work Phone: Comment on above: Expected: 04/16/2023, Expires: 3 Start: 04-16-2023 End: 04-17-2023 Lipase [Enzymatic activity/volume] in Serum or Plasma LIPASE BLD Lab Routine Chronic myeloid leukemia (HCC) Expected: 04/16/2023, Expires: 04/17/2023 [facility] Work Phone: Comment on above: Expected: 04/16/2023, Expires: 3 Start: 04-16-2023 End: 04-17-2023 Magnesium [Mass/volume] in Serum or Plasma MAGNESIUM BLD Lab Routine Chronic myeloid leukemia (HCC) Expected: 04/16/2023, Expires: 04/17/2023 [facility] Work Phone: Comment on above: Expected: 04/16/2023, Expires: 3 Start: 04-16-2023 End: 04-17-2023 Phosphate [Mass/volume] in Serum or Plasma PHOSPHORUS INORGANIC Lab Routine Chronic myeloid leukemia (HCC) Expected: 04/16/2023, Expires: 04/17/2023 [facility] Work Phone: Comment on above: Expected: 04/16/2023, Expires: 3 Start: 04-16-2023 End: 04-17-2023 PT panel - Platelet poor plasma by Coagulation assay PROTHROMBIN TIME/PT Lab Routine Chronic myeloid leukemia (HCC) Expected: 04/16/2023, Expires: 04/17/2023 [facility] Work Phone: Comment on above: Expected: 04/16/2023, Expires: 3 Start: 04-16-2023 End: 04-17-2023 Triglyceride [Mass/volume] in Serum or Plasma TRIGLYCERIDES BLD Lab Routine Chronic myeloid leukemia (HCC) Expected: 04/16/2023, Expires: 04/17/2023 [facility] Work Phone: Comment on above: Expected: 04/16/2023, Expires: 3 Start: 04-16-2023 End: 04-17-2023 Urate [Mass/volume] in Serum or Plasma URIC ACID BLOOD Lab Routine Chronic myeloid leukemia (HCC) Expected: 04/16/2023, Expires: 04/17/2023 [facility] Work Phone: Comment on above: Expected: 04/16/2023, Expires: 3 Start: 04-16-2023 End: 04-17-2023 URINALYSIS, DIPSTICK ONLY URINALYSIS, DIPSTICK ONLY Lab Routine Chronic myeloid leukemia (HCC) Expected: 04/16/2023, Expires: 04/17/2023 [facility] Work Phone: Comment on above: Expected: 04/16/2023, Expires: 3 Start: 03-22-2023 Hepatitis B screening URINE ALBUMIN:CREATININE RATIO [facility] Start: 03-22-2023 Hepatitis B surface antibody level LDL CHOLESTEROL [facility] Start: 02-07-2023 Influenza vaccination [facility] Start: 01-22-2023 End: 01-23-2023 Amylase [Enzymatic activity/volume] in Serum or Plasma AMYLASE BLD Lab Routine CML (chronic myeloid leukemia) (HCC) Expected: 01/22/2023, Expires: 01/23/2023 [facility] Work Phone: Comment on above: Expected: 01/22/2023, Expires: 3 Start: 01-22-2023 End: 01-23-2023 aPTT in Platelet poor plasma by Coagulation assay ACTIVATED PTT Lab Routine CML (chronic myeloid leukemia) (HCC) Expected: 01/22/2023, Expires: 01/23/2023 [facility] Work Phone: Comment on above: Expected: 01/22/2023, Expires: 3 Start: 01-22-2023 End: 01-23-2023 BCR/ABL1 P190 QUANTITATIVE PCR BLOOD BCR/ABL1 P190 QUANTITATIVE PCR BLOOD Lab Routine CML (chronic myeloid leukemia) (HCC) Expected: 01/22/2023, Expires: 01/23/2023 [facility] Work Phone: Comment on above: Expected: 01/22/2023, Expires: 3 Start: 01-22-2023 End: 01-23-2023 BCR/ABL1 P210 QUANTITATIVE PCR BLOOD BCR/ABL1 P210 QUANTITATIVE PCR BLOOD Lab Routine CML (chronic myeloid leukemia) (HCC) Expected: 01/22/2023, Expires: 01/23/2023 [facility] Work Phone: Comment on above: Expected: 01/22/2023, Expires: 3 Start: 01-22-2023 End: 01-23-2023 Bilirubin.conjugated [Mass/volume] in Serum or Plasma BILIRUBIN DIRECT BLD Lab Routine CML (chronic myeloid leukemia) (HCC) Expected: 01/22/2023, Expires: 01/23/2023 [facility] Work Phone: Comment on above: Expected: 01/22/2023, Expires: 3 Start: 01-22-2023 End: 01-23-2023 CBC W Auto Differential panel - Blood CBC + DIFF Lab Routine CML (chronic myeloid leukemia) ([facility]) Expected: 01/22/2023, Expires: 01/23/2023 [facility] Work Phone: Comment on above: Expected: 01/22/2023, Expires: Start: 01-22-2023 End: 01-23-2023 Cholesterol [Mass/volume] in Serum or Plasma CHOLESTEROL BLD Lab Routine CML (chronic myeloid leukemia) ([facility]) Expected: 01/22/2023, Expires: 01/23/2023 [facility] Work Phone: Comment on above: Expected: 01/22/2023, Expires: 3 Start: 01-22-2023 End: 01-23-2023 CK TOTAL AND CK-MB CK TOTAL AND CK-MB Lab Routine CML (chronic myeloid leukemia) ([facility]) Expected: 01/22/2023, Expires: 01/23/2023 [facility] Work Phone: Comment on above: Expected: 01/22/2023, Expires: 3 Start: 01-22-2023 End: 01-23-2023 CLINICAL TRIAL DRAW CLINICAL TRIAL DRAW Lab Routine CML (chronic myeloid leukemia) (HCC) Expected: 01/22/2023, Expires: 01/23/2023 [facility] Work Phone: Comment on above: Expected: 01/22/2023, Expires: 3 Start: 01-22-2023 End: 01-23-2023 Comprehensive metabolic 2000 panel - Serum or Plasma COMP METABOLIC PANEL Lab Routine CML (chronic myeloid leukemia) ([facility]) Expected: 01/22/2023, Expires: 01/23/2023 [facility] Work Phone: Comment on above: Expected: 01/22/2023, Expires: Start: 01-22-2023 End: 01-23-2023 Hemoglobin A1c in Blood HGB A1C Lab Routine CML (chronic myeloid leukemia) ([facility]) Expected: 01/22/2023, Expires: 01/23/2023 [facility] Work Phone: Comment on above: Expected: 01/22/2023, Expires: Start: 01-22-2023 End: 01-23-2023 HIGH SENSITIVITY TROPONIN T HIGH SENSITIVITY TROPONIN T Lab Routine CML (chronic myeloid leukemia) ([facility]) Expected: 01/22/2023, Expires: 01/23/2023 [facility] Work Phone: Comment on above: Expected: 01/22/2023, Expires: Start: 01-22-2023 End: 01-23-2023 Lipase [Enzymatic activity/volume] in Serum or Plasma LIPASE BLD Lab Routine CML (chronic myeloid leukemia) ([facility]) Expected: 01/22/2023, Expires: 01/23/2023 [facility] Work Phone: Comment on above: Expected: 01/22/2023, Expires: 3 Start: 01-22-2023 End: 01-23-2023 Magnesium [Mass/volume] in Serum or Plasma MAGNESIUM BLD Lab Routine CML (chronic myeloid leukemia) ([facility]) Expected: 01/22/2023, Expires: 01/23/2023 [facility] Work Phone: Comment on above: Expected: 01/22/2023, Expires: 3 Start: 01-22-2023 End: 01-23-2023 Phosphate [Mass/volume] in Serum or Plasma PHOSPHORUS INORGANIC Lab Routine CML (chronic myeloid leukemia) ([facility]) Expected: 01/22/2023, Expires: 01/23/2023 [facility] Work Phone: Comment on above: Expected: 01/22/2023, Expires: 3 Start: 01-22-2023 End: 01-23-2023 PT panel - Platelet poor plasma by Coagulation assay PROTHROMBIN TIME/PT Lab Routine CML (chronic myeloid leukemia) ([facility]) Expected: 01/22/2023, Expires: 01/23/2023 [facility] Work Phone: Comment on above: Expected: 01/22/2023, Expires: 3 Start: 01-22-2023 End: 01-23-2023 Triglyceride [Mass/volume] in Serum or Plasma TRIGLYCERIDES BLD Lab Routine CML (chronic myeloid leukemia) ([facility]) Expected: 01/22/2023, Expires: 01/23/2023 [facility] Work Phone: Comment on above: Expected: 01/22/2023, Expires: 3 Start: 01-22-2023 End: 01-23-2023 Urate [Mass/volume] in Serum or Plasma URIC ACID BLOOD Lab Routine CML (chronic myeloid leukemia) ([facility]) Expected: 01/22/2023, Expires: 01/23/2023 [facility] Work Phone: Comment on above: Expected: 01/22/2023, Expires: 3 Start: 01-22-2023 End: 01-23-2023 URINALYSIS, DIPSTICK ONLY URINALYSIS, DIPSTICK ONLY Lab Routine CML (chronic myeloid leukemia) ([facility]) Expected: 01/22/2023, Expires: 01/23/2023 [facility] Work Phone: Comment on above: Expected: 01/22/2023, Expires: 3 Start: 01-15-2023 Hemoglobin A1c/Hemoglobin.total in Blood HBA1C [facility] Start: 10-28-2022 End: 10-29-2022 Amylase [Enzymatic activity/volume] in Serum or Plasma AMYLASE BLD Lab STAT Chronic myeloid leukemia (HCC) Expected: 10/28/2022, Expires: 10/29/2022 [facility] Work Phone: Comment on above: Expected: 10/28/2022, Expires: Start: 10-28-2022 End: 10-29-2022 aPTT in Platelet poor plasma by Coagulation assay ACTIVATED PTT Lab STAT Chronic myeloid leukemia (HCC) Expected: 10/28/2022, Expires: 10/29/2022 [facility] Work Phone: Comment on above: Expected: 10/28/2022, Expires: Start: 10-28-2022 End: 10-29-2022 Bilirubin.conjugated [Mass/volume] in Serum or Plasma BILIRUBIN DIRECT BLD Lab STAT Chronic myeloid leukemia (HCC) Expected: 10/28/2022, Expires: 10/29/2022 [facility] Work Phone: Comment on above: Expected: 10/28/2022, Expires: 3 Start: 10-28-2022 End: 10-29-2022 C reactive protein [Mass/volume] in Serum or Plasma C-REACTIVE PROTEIN (CRP) Lab STAT Chronic myeloid leukemia (HCC) Expected: 10/28/2022, Expires: 10/29/2022 [facility] Work Phone: Comment on above: Expected: 10/28/2022, Expires: 3 Start: 10-28-2022 End: 10-29-2022 CBC W Auto Differential panel - Blood CBC + DIFF Lab STAT Chronic myeloid leukemia (HCC) Expected: 10/28/2022, Expires: 10/29/2022 [facility] Work Phone: Comment on above: Expected: 10/28/2022, Expires: 3 Start: 10-28-2022 End: 10-29-2022 Cholesterol [Mass/volume] in Serum or Plasma CHOLESTEROL BLD Lab STAT Chronic myeloid leukemia (HCC) Expected: 10/28/2022, Expires: 10/29/2022 [facility] Work Phone: Comment on above: Expected: 10/28/2022, Expires: 3 Start: 10-28-2022 End: 10-29-2022 CLINICAL TRIAL DRAW CLINICAL TRIAL DRAW Lab STAT Chronic myeloid leukemia (HCC) Expected: 10/28/2022, Expires: 10/29/2022 [facility] Work Phone: Comment on above: Expected: 10/28/2022, Expires: 3 Start: 10-28-2022 End: 10-29-2022 Comprehensive metabolic 2000 panel - Serum or Plasma COMP METABOLIC PANEL Lab STAT Chronic myeloid leukemia (HCC) Expected: 10/28/2022, Expires: 10/29/2022 [facility] Work Phone: Comment on above: Expected: 10/28/2022, Expires: Start: 10-28-2022 End: 10-29-2022 Lipase [Enzymatic activity/volume] in Serum or Plasma LIPASE BLD Lab STAT Chronic myeloid leukemia (HCC) Expected: 10/28/2022, Expires: 10/29/2022 [facility] Work Phone: Comment on above: Expected: 10/28/2022, Expires: 3 Start: 10-28-2022 End: 10-29-2022 Magnesium [Mass/volume] in Serum or Plasma MAGNESIUM BLD Lab STAT Chronic myeloid leukemia (HCC) Expected: 10/28/2022, Expires: 10/29/2022 [facility] Work Phone: Comment on above: Expected: 10/28/2022, Expires: 3 Start: 10-28-2022 End: 10-29-2022 Phosphate [Mass/volume] in Serum or Plasma PHOSPHORUS INORGANIC Lab STAT Chronic myeloid leukemia (HCC) Expected: 10/28/2022, Expires: 10/29/2022 [facility] Work Phone: Comment on above: Expected: 10/28/2022, Expires: 3 Start: 10-28-2022 End: 10-29-2022 PT panel - Platelet poor plasma by Coagulation assay PROTHROMBIN TIME/PT Lab STAT Chronic myeloid leukemia (HCC) Expected: 10/28/2022, Expires: 10/29/2022 [facility] Work Phone: Comment on above: Expected: 10/28/2022, Expires: Start: 10-28-2022 End: 10-29-2022 Triglyceride [Mass/volume] in Serum or Plasma TRIGLYCERIDES BLD Lab STAT Chronic myeloid leukemia (HCC) Expected: 10/28/2022, Expires: 10/29/2022 [facility] Work Phone: Comment on above: Expected: 10/28/2022, Expires: Start: 10-28-2022 End: 10-29-2022 Troponin I.cardiac [Mass/volume] in Serum or Plasma TROPONIN (POCT) Lab STAT Chronic myeloid leukemia (HCC) Expected: 10/28/2022, Expires: 10/29/2022 [facility] Work Phone: Comment on above: Expected: 10/28/2022, Expires: Start: 10-28-2022 End: 10-29-2022 Urate [Mass/volume] in Serum or Plasma URIC ACID BLOOD Lab STAT Chronic myeloid leukemia (HCC) Expected: 10/28/2022, Expires: 10/29/2022 [facility] Work Phone: Comment on above: Expected: 10/28/2022, Expires: 3 Start: 10-28-2022 End: 10-29-2022 URINALYSIS, DIPSTICK ONLY URINALYSIS, DIPSTICK ONLY Lab STAT Chronic myeloid leukemia (HCC) Expected: 10/28/2022, Expires: 10/29/2022 [facility] Work Phone: Comment on above: Expected: 10/28/2022, Expires: Start: 10-12-2022 Hemoglobin A1c/Hemoglobin.total in Blood HBA1C [facility] Start: 08-05-2022 End: 08-06-2022 Amylase [Enzymatic activity/volume] in Serum or Plasma AMYLASE BLD Lab STAT Chronic myeloid leukemia (HCC) Expected: 08/05/2022, Expires: 08/06/2022 [facility] Work Phone: Comment on above: Expected: 08/05/2022, Expires: 3 Start: 08-05-2022 End: 08-06-2022 aPTT in Platelet poor plasma by Coagulation assay ACTIVATED PTT Lab STAT Chronic myeloid leukemia (HCC) Expected: 08/05/2022, Expires: 08/06/2022 [facility] Work Phone: Comment on above: Expected: 08/05/2022, Expires: 3 Start: 08-05-2022 End: 10-05-2022 BCR/ABL1 P210 QUANTITATIVE PCR BLOOD BCR/ABL1 P210 QUANTITATIVE PCR BLOOD Lab Routine CML (chronic myeloid leukemia) (HCC) Expected: 08/05/2022, Expires: 10/05/2022 [facility] Work Phone: Comment on above: Expected: 08/05/2022, Expires: 3 Start: 08-05-2022 End: 08-06-2022 Bilirubin.conjugated [Mass/volume] in Serum or Plasma BILIRUBIN DIRECT BLD Lab STAT Chronic myeloid leukemia (HCC) Expected: 08/05/2022, Expires: 08/06/2022 [facility] Work Phone: Comment on above: Expected: 08/05/2022, Expires: 3 Start: 08-05-2022 End: 08-06-2022 C reactive protein [Mass/volume] in Serum or Plasma C-REACTIVE PROTEIN (CRP) Lab STAT Chronic myeloid leukemia (HCC) Expected: 08/05/2022, Expires: 08/06/2022 [facility] Work Phone: Comment on above: Expected: 08/05/2022, Expires: 3 Start: 08-05-2022 End: 08-06-2022 CBC W Auto Differential panel - Blood CBC + DIFF Lab STAT Chronic myeloid leukemia (HCC) Expected: 08/05/2022, Expires: 08/06/2022 [facility] Work Phone: Comment on above: Expected: 08/05/2022, Expires: 3 Start: 08-05-2022 End: 08-06-2022 Cholesterol [Mass/volume] in Serum or Plasma CHOLESTEROL BLD Lab STAT Chronic myeloid leukemia (HCC) Expected: 08/05/2022, Expires: 08/06/2022 [facility] Work Phone: Comment on above: Expected: 08/05/2022, Expires: 3 Start: 08-05-2022 End: 08-06-2022 CLINICAL TRIAL DRAW CLINICAL TRIAL DRAW Lab STAT Chronic myeloid leukemia (HCC) Expected: 08/05/2022, Expires: 08/06/2022 [facility] Work Phone: Comment on above: Expected: 08/05/2022, Expires: 3 Start: 08-05-2022 End: 08-06-2022 Comprehensive metabolic 2000 panel - Serum or Plasma COMP METABOLIC PANEL Lab STAT Chronic myeloid leukemia (HCC) Expected: 08/05/2022, Expires: 08/06/2022 [facility] Work Phone: Comment on above: Expected: 08/05/2022, Expires: 3 Start: 08-05-2022 End: 10-05-2022 HIGH SENSITIVITY TROPONIN T HIGH SENSITIVITY TROPONIN T Lab Routine CML (chronic myeloid leukemia) (HCC) Expected: 08/05/2022, Expires: 10/05/2022 [facility] Work Phone: Comment on above: Expected: 08/05/2022, Expires: 3 Start: 08-05-2022 End: 08-06-2022 Lipase [Enzymatic activity/volume] in Serum or Plasma LIPASE BLD Lab STAT Chronic myeloid leukemia (HCC) Expected: 08/05/2022, Expires: 08/06/2022 [facility] Work Phone: Comment on above: Expected: 08/05/2022, Expires: 3 Start: 08-05-2022 End: 08-06-2022 Magnesium [Mass/volume] in Serum or Plasma MAGNESIUM BLD Lab STAT Chronic myeloid leukemia (HCC) Expected: 08/05/2022, Expires: 08/06/2022 [facility] Work Phone: Comment on above: Expected: 08/05/2022, Expires: 3 Start: 08-05-2022 End: 08-06-2022 Phosphate [Mass/volume] in Serum or Plasma PHOSPHORUS INORGANIC Lab STAT Chronic myeloid leukemia (HCC) Expected: 08/05/2022, Expires: 08/06/2022 [facility] Work Phone: Comment on above: Expected: 08/05/2022, Expires: 3 Start: 08-05-2022 End: 08-06-2022 PT panel - Platelet poor plasma by Coagulation assay PROTHROMBIN TIME/PT Lab STAT Chronic myeloid leukemia (HCC) Expected: 08/05/2022, Expires: 08/06/2022 [facility] Work Phone: Comment on above: Expected: 08/05/2022, Expires: 3 Start: 08-05-2022 End: 08-06-2022 Triglyceride [Mass/volume] in Serum or Plasma TRIGLYCERIDES BLD Lab STAT Chronic myeloid leukemia (HCC) Expected: 08/05/2022, Expires: 08/06/2022 [facility] Work Phone: Comment on above: Expected: 08/05/2022, Expires: 3 Start: 08-05-2022 End: 08-06-2022 Troponin I.cardiac [Mass/volume] in Serum or Plasma TROPONIN (POCT) Lab STAT Chronic myeloid leukemia (HCC) Expected: 08/05/2022, Expires: 08/06/2022 [facility] Work Phone: Comment on above: Expected: 08/05/2022, Expires: 3 Start: 08-05-2022 End: 02-28-2023 Urate [Mass/volume] in Serum or Plasma URIC ACID BLOOD Lab STAT Chronic myeloid leukemia (HCC) Expected: 08/05/2022, Expires: 08/06/2022 [facility] Work Phone: Comment on above: Expected: 08/05/2022, Expires: 3 Start: 08-05-2022 End: 08-06-2022 URINALYSIS, DIPSTICK ONLY URINALYSIS, DIPSTICK ONLY Lab STAT Chronic myeloid leukemia (HCC) Expected: 08/05/2022, Expires: 08/06/2022 [facility] Work Phone: Comment on above: Expected: 08/05/2022, Expires: 3 Start: 06-11-2022 Adult depression screening assessment DEPRESSION SCREENING [facility] Start: 06-09-2022 DEPRESSION ASSESSMENT DEPRESSION ASSESSMENT [facility] Start: 03-19-2022 End: 05-19-2022 ALBUMIN/CREAT RATIO RND UR ALBUMIN/CREAT RATIO RND UR Lab Routine Uncontrolled type 2 diabetes mellitus with hyperglycemia (HCC) Expected: 03/19/2022, Expires: 05/19/2022 [facility] Work Phone: Comment on above: Expected: 03/19/2022, Expires: 2 Start: 03-19-2022 End: 05-19-2022 C peptide [Mass/volume] in Serum or Plasma C-PEPTIDE BLD Lab Routine Uncontrolled type 2 diabetes mellitus with hyperglycemia (HCC) Expected: 03/19/2022, Expires: 05/19/2022 [facility] Work Phone: Comment on above: Expected: 03/19/2022, Expires: 2 Start: 03-19-2022 End: 05-19-2022 Cholesterol in LDL [Mass/volume] in Serum or Plasma LDL CHOLESTEROL DIR Lab Routine Uncontrolled type 2 diabetes mellitus with hyperglycemia (HCC) Expected: 03/19/2022, Expires: 05/19/2022 [facility] Work Phone: Comment on above: Expected: 03/19/2022, Expires: 2 Start: 03-19-2022 End: 05-19-2022 Fasting glucose [Mass/volume] in Serum or Plasma GLUCOSE FASTING BLD Lab Routine Uncontrolled type 2 diabetes mellitus with hyperglycemia (HCC) Expected: 03/19/2022, Expires: 05/19/2022 [facility] Work Phone: Comment on above: Expected: 03/19/2022, Expires: 2 Start: 03-19-2022 End: 05-19-2022 Lipid 1996 panel - Serum or Plasma LIPID PANEL BASIC Lab Routine Uncontrolled type 2 diabetes mellitus with hyperglycemia (HCC) Expected: 03/19/2022, Expires: 05/19/2022 [facility] Work Phone: Comment on above: Expected: 03/19/2022, Expires: 2 Start: 02-18-2022 End: 02-19-2022 Amylase [Enzymatic activity/volume] in Serum or Plasma AMYLASE BLD Lab STAT CML (chronic myeloid leukemia) (HCC) Expected: 02/18/2022, Expires: 02/19/2022 [facility] Work Phone: Comment on above: Expected: 02/18/2022, Expires: 2 Start: 02-18-2022 End: 02-19-2022 aPTT in Platelet poor plasma by Coagulation assay ACTIVATED PTT Lab STAT CML (chronic myeloid leukemia) (HCC) Expected: 02/18/2022, Expires: 02/19/2022 [facility] Work Phone: Comment on above: Expected: 02/18/2022, Expires: 2 Start: 02-18-2022 End: 02-19-2022 Bilirubin.conjugated [Mass/volume] in Serum or Plasma BILIRUBIN DIRECT BLD Lab STAT CML (chronic myeloid leukemia) (HCC) Expected: 02/18/2022, Expires: 02/19/2022 [facility] Work Phone: Comment on above: Expected: 02/18/2022, Expires: 2 Start: 02-18-2022 End: 02-19-2022 CBC W Auto Differential panel - Blood CBC + DIFF Lab STAT CML (chronic myeloid leukemia) ([facility]) Expected: 02/18/2022, Expires: 02/19/2022 [facility] Work Phone: Comment on above: Expected: 02/18/2022, Expires: 2 Start: 02-18-2022 End: 02-19-2022 Cholesterol [Mass/volume] in Serum or Plasma CHOLESTEROL BLD Lab STAT CML (chronic myeloid leukemia) ([facility]) Expected: 02/18/2022, Expires: 02/19/2022 [facility] Work Phone: Comment on above: Expected: 02/18/2022, Expires: 2 Start: 02-18-2022 End: 02-19-2022 CLINICAL TRIAL DRAW CLINICAL TRIAL DRAW Lab STAT CML (chronic myeloid leukemia) ([facility]) Expected: 02/18/2022, Expires: 02/19/2022 [facility] Work Phone: Comment on above: Expected: 02/18/2022, Expires: 2 Start: 02-18-2022 End: 02-19-2022 Comprehensive metabolic 2000 panel - Serum or Plasma COMP METABOLIC PANEL Lab STAT CML (chronic myeloid leukemia) ([facility]) Expected: 02/18/2022, Expires: 02/19/2022 [facility] Work Phone: Comment on above: Expected: 02/18/2022, Expires: 2 Start: 02-18-2022 End: 02-19-2022 Creatine kinase [Enzymatic activity/volume] in Serum or Plasma CK CREATINE KINASE Lab STAT CML (chronic myeloid leukemia) ([facility]) Expected: 02/18/2022, Expires: 02/19/2022 [facility] Work Phone: Comment on above: Expected: 02/18/2022, Expires: 2 Start: 02-18-2022 End: 02-19-2022 HDL CHOLESTEROL BLD HDL CHOLESTEROL BLD Lab STAT CML (chronic myeloid leukemia) ([facility]) Expected: 02/18/2022, Expires: 02/19/2022 [facility] Work Phone: Comment on above: Expected: 02/18/2022, Expires: 2 Start: 02-18-2022 End: 02-19-2022 Lipase [Enzymatic activity/volume] in Serum or Plasma LIPASE BLD Lab STAT CML (chronic myeloid leukemia) ([facility]) Expected: 02/18/2022, Expires: 02/19/2022 [facility] Work Phone: Comment on above: Expected: 02/18/2022, Expires: 2 Start: 02-18-2022 End: 02-19-2022 Magnesium [Mass/volume] in Serum or Plasma MAGNESIUM BLD Lab STAT CML (chronic myeloid leukemia) ([facility]) Expected: 02/18/2022, Expires: 02/19/2022 [facility] Work Phone: Comment on above: Expected: 02/18/2022, Expires: 2 Start: 02-18-2022 End: 02-19-2022 Phosphate [Mass/volume] in Serum or Plasma PHOSPHORUS INORGANIC Lab STAT CML (chronic myeloid leukemia) ([facility]) Expected: 02/18/2022, Expires: 02/19/2022 [facility] Work Phone: Comment on above: Expected: 02/18/2022, Expires: 2 Start: 02-18-2022 End: 02-19-2022 PT panel - Platelet poor plasma by Coagulation assay PROTHROMBIN TIME/PT Lab STAT CML (chronic myeloid leukemia) ([facility]) Expected: 02/18/2022, Expires: 02/19/2022 [facility] Work Phone: Comment on above: Expected: 02/18/2022, Expires: 2 Start: 02-18-2022 End: 02-19-2022 Triglyceride [Mass/volume] in Serum or Plasma TRIGLYCERIDES BLD Lab STAT CML (chronic myeloid leukemia) ([facility]) Expected: 02/18/2022, Expires: 02/19/2022 [facility] Work Phone: Comment on above: Expected: 02/18/2022, Expires: 2 Start: 02-18-2022 End: 02-19-2022 TROPONIN T TROPONIN T Lab STAT CML (chronic myeloid leukemia) ([facility]) Expected: 02/18/2022, Expires: 02/19/2022 [facility] Work Phone: Comment on above: Expected: 02/18/2022, Expires: 2 Start: 02-18-2022 End: 02-19-2022 Urate [Mass/volume] in Serum or Plasma URIC ACID BLOOD Lab STAT CML (chronic myeloid leukemia) ([facility]) Expected: 02/18/2022, Expires: 02/19/2022 [facility] Work Phone: Comment on above: Expected: 02/18/2022, Expires: 2 Start: 02-18-2022 End: 02-19-2022 URINALYSIS, DIPSTICK ONLY URINALYSIS, DIPSTICK ONLY Lab STAT CML (chronic myeloid leukemia) ([facility]) Expected: 02/18/2022, Expires: 02/19/2022 [facility] Work Phone: Comment on above: Expected: 02/18/2022, Expires: 2 Start: 02-15-2022 End: 04-17-2022 BCR/ABL1 P190 QUANTITATIVE PCR BLOOD BCR/ABL1 P190 QUANTITATIVE PCR BLOOD Lab Routine CML (chronic myeloid leukemia) ([facility]) Expected: 02/15/2022, Expires: 04/17/2022 [facility] Work Phone: Comment on above: Expected: 02/15/2022, Expires: 2 Start: 02-15-2022 End: 04-17-2022 BCR/ABL1 P210 QUANTITATIVE PCR BLOOD BCR/ABL1 P210 QUANTITATIVE PCR BLOOD Lab Routine CML (chronic myeloid leukemia) ([facility]) Expected: 02/15/2022, Expires: 04/17/2022 [facility] Work Phone: Comment on above: Expected: 02/15/2022, Expires: 2 Start: 02-07-2022 Influenza vaccination [facility] Start: 12-04-2021 End: 02-03-2022 BCR/ABL1 P210 QUANTITATIVE PCR BLOOD BCR/ABL1 P210 QUANTITATIVE PCR BLOOD Lab Routine CML (chronic myelocytic leukemia) ([facility]) Expected: 12/04/2021, Expires: 02/03/2022 [facility] Work Phone: Comment on above: Expected: 12/04/2021, Expires: 2 Start: 11-26-2021 End: 11-27-2021 Amylase [Enzymatic activity/volume] in Serum or Plasma AMYLASE BLD Lab STAT CML (chronic myeloid leukemia) ([facility]) Expected: 11/26/2021, Expires: 11/27/2021 [facility] Work Phone: Comment on above: Expected: 11/26/2021, Expires: 2 Start: 11-26-2021 End: 11-27-2021 aPTT in Platelet poor plasma by Coagulation assay ACTIVATED PTT Lab STAT CML (chronic myeloid leukemia) ([facility]) Expected: 11/26/2021, Expires: 11/27/2021 [facility] Work Phone: Comment on above: Expected: 11/26/2021, Expires: 2 Start: 11-26-2021 End: 11-27-2021 Bilirubin.conjugated [Mass/volume] in Serum or Plasma BILIRUBIN DIRECT BLD Lab STAT CML (chronic myeloid leukemia) ([facility]) Expected: 11/26/2021, Expires: 11/27/2021 [facility] Work Phone: Comment on above: Expected: 11/26/2021, Expires: 2 Start: 11-26-2021 End: 11-27-2021 CBC W Auto Differential panel - Blood CBC + DIFF Lab STAT CML (chronic myeloid leukemia) ([facility]) Expected: 11/26/2021, Expires: 11/27/2021 [facility] Work Phone: Comment on above: Expected: 11/26/2021, Expires: 2 Start: 11-26-2021 End: 11-27-2021 Cholesterol [Mass/volume] in Serum or Plasma CHOLESTEROL BLD Lab STAT CML (chronic myeloid leukemia) ([facility]) Expected: 11/26/2021, Expires: 11/27/2021 [facility] Work Phone: Comment on above: Expected: 11/26/2021, Expires: 2 Start: 11-26-2021 End: 11-27-2021 CK CREATINE KINASE CK CREATINE KINASE Lab STAT CML (chronic myeloid leukemia) ([facility]) Expected: 11/26/2021, Expires: 11/27/2021 [facility] Work Phone: Comment on above: Expected: 11/26/2021, Expires: 2 Start: 11-26-2021 End: 11-27-2021 CLINICAL TRIAL DRAW CLINICAL TRIAL DRAW Lab STAT CML (chronic myeloid leukemia) ([facility]) Expected: 11/26/2021, Expires: 11/27/2021 [facility] Work Phone: Comment on above: Expected: 11/26/2021, Expires: 2 Start: 11-26-2021 End: 11-27-2021 Comprehensive metabolic 2000 panel - Serum or Plasma COMP METABOLIC PANEL Lab STAT CML (chronic myeloid leukemia) ([facility]) Expected: 11/26/2021, Expires: 11/27/2021 [facility] Work Phone: Comment on above: Expected: 11/26/2021, Expires: 2 Start: 11-26-2021 End: 11-27-2021 HDL CHOLESTEROL BLD HDL CHOLESTEROL BLD Lab STAT CML (chronic myeloid leukemia) ([facility]) Expected: 11/26/2021, Expires: 11/27/2021 [facility] Work Phone: Comment on above: Expected: 11/26/2021, Expires: 2 Start: 11-26-2021 End: 11-27-2021 Lipase [Enzymatic activity/volume] in Serum or Plasma LIPASE BLD Lab STAT CML (chronic myeloid leukemia) ([facility]) Expected: 11/26/2021, Expires: 11/27/2021 [facility] Work Phone: Comment on above: Expected: 11/26/2021, Expires: 2 Start: 11-26-2021 End: 11-27-2021 Magnesium [Mass/volume] in Serum or Plasma MAGNESIUM BLD Lab STAT CML (chronic myeloid leukemia) ([facility]) Expected: 11/26/2021, Expires: 11/27/2021 [facility] Work Phone: Comment on above: Expected: 11/26/2021, Expires: 2 Start: 11-26-2021 End: 11-27-2021 Phosphate [Mass/volume] in Serum or Plasma PHOSPHORUS INORGANIC Lab STAT CML (chronic myeloid leukemia) ([facility]) Expected: 11/26/2021, Expires: 11/27/2021 [facility] Work Phone: Comment on above: Expected: 11/26/2021, Expires: 2 Start: 11-26-2021 End: 11-27-2021 PT panel - Platelet poor plasma by Coagulation assay PROTHROMBIN TIME/PT Lab STAT CML (chronic myeloid leukemia) ([facility]) Expected: 11/26/2021, Expires: 11/27/2021 [facility] Work Phone: Comment on above: Expected: 11/26/2021, Expires: 2 Start: 11-26-2021 End: 11-27-2021 Triglyceride [Mass/volume] in Serum or Plasma TRIGLYCERIDES BLD Lab STAT CML (chronic myeloid leukemia) ([facility]) Expected: 11/26/2021, Expires: 11/27/2021 [facility] Work Phone: Comment on above: Expected: 11/26/2021, Expires: 2 Start: 11-26-2021 End: 11-27-2021 TROPONIN T TROPONIN T Lab STAT CML (chronic myeloid leukemia) ([facility]) Expected: 11/26/2021, Expires: 11/27/2021 [facility] Work Phone: Comment on above: Expected: 11/26/2021, Expires: 2 Start: 11-26-2021 End: 11-27-2021 Urate [Mass/volume] in Serum or Plasma URIC ACID BLOOD Lab STAT CML (chronic myeloid leukemia) (HCC) Expected: 11/26/2021, Expires: 11/27/2021 [facility] Work Phone: Comment on above: Expected: 11/26/2021, Expires: 2 Start: 11-26-2021 End: 11-27-2021 URINALYSIS, DIPSTICK ONLY URINALYSIS, DIPSTICK ONLY Lab STAT CML (chronic myeloid leukemia) (HCC) Expected: 11/26/2021, Expires: 11/27/2021 [facility] Work Phone: Comment on above: Expected: 11/26/2021, Expires: 2 Start: 06-23-2021 COLORECTAL CANCER SCREENING COLORECTAL CANCER SCREENING [facility] Start: 06-23-2021 FECAL OCCULT BLOOD FECAL OCCULT BLOOD [facility] Start: 06-23-2021 Screening for malignant neoplasm of colon [facility] Start: 06-09-2021 DEPRESSION ASSESSMENT DEPRESSION ASSESSMENT [facility] Start: 02-07-2021 Influenza vaccination INFLUENZA (#1) [facility] Start: 12-16-2020 DTaP,Tdap and Td Vaccines (2 - Td or Tdap) DTaP,Tdap and Td Vaccines (2 - Td or Tdap) [facility] Start: 12-16-2020 Urine microalbumin profile [facility] Start: 10-17-2020 COVID-19 VACCINE (3 - Pfizer risk 4-dose series) COVID-19 VACCINE (3 - Pfizer risk 4-dose series) [facility] Start: 10-17-2020 COVID-19 VACCINE (3 - Pfizer risk series) COVID-19 VACCINE (3 - Pfizer risk series) [facility] Start: 2018 SHINGRIX VACCINE (1 of 2) SHINGRIX VACCINE (1 of 2) [facility] Start: 05-20-2018 PNEUMOCOCCAL (2 - PPSV23 if available, else PCV20) PNEUMOCOCCAL (2 - PPSV23 if available, else PCV20) [facility] Start: 05-20-2018 PNEUMOCOCCAL (2 - PPSV23 or PCV20) PNEUMOCOCCAL (2 - PPSV23 or PCV20) [facility] Start: 05-05-2018 Glaucoma screening Dilated Retinal Exam [facility] Start: 05-05-2018 Hepatitis C antibody, confirmatory test DILATED RETINAL EXAM [facility] Start: 07-15-2017 PNEUMOCOCCAL (2 - PPSV23 if available, else PCV20) PNEUMOCOCCAL (2 - PPSV23 if available, else PCV20) [facility] Start: 07-15-2017 PNEUMOCOCCAL (2 - PPSV23 or PCV20) PNEUMOCOCCAL (2 - PPSV23 or PCV20) [facility] Start: 07-15-2017 Pneumococcal vaccination [facility] Start: 07-15-2017 Pneumococcal Vaccine: 50+ (2 of 2 - PPSV23) Pneumococcal Vaccine: 50+ (2 of 2 - PPSV23) [facility] Start: 2013 COLOGUARD (FIT-DNA) COLOGUARD (FIT-DNA) [facility] Start: 2013 Colonoscopy COLONOSCOPY [facility] Start: [address] COLONOGRAPHY [facility] Start: 2013 Screening for malignant neoplasm of colon [facility] Start: 2013 SIGMOIDOSCOPY SIGMOIDOSCOPY [facility] Start: 09-26-1987 Administration of varicella zoster vaccine Zoster (Shingles) Vaccine (1 of 2) [facility] Start: 09-26-1987 Hepatitis B Vaccine (1 of 3 - 19+ 3-dose series) Hepatitis B Vaccine (1 of 3 - 19+ 3-dose series) [facility] Start: 09-26-1987 SHINGRIX VACCINE (1 of 2) SHINGRIX VACCINE (1 of 2) [facility] Start: 1986 Adult BMI Follow Up Plan Adult BMI Follow Up Plan [facility] Start: 1986 ANNUAL PCP TEAM CHRONIC DISEASE VISIT ANNUAL PCP TEAM CHRONIC DISEASE VISIT [facility] Start: 1986 Anxiety Screening Anxiety Screening [facility] Start: 1986 BP CONTROLLED (<130/80) BP CONTROLLED (<130/80) [facility] Start: 1986 Depression Screening Depression Screening [facility] Start: 1986 Diabetic foot examination Diabetic Foot Exam [facility] Start: 1980 Depression Screening Depression Screening [facility] Start: 1978 3 comp foot exam completed DIABETIC FOOT EXAM [facility] Start: 1978 Diabetic foot examination Diabetic Foot Exam [facility] Start: 1968 Glaucoma screening Diabetic Ophthalmology Exam [facility] Start: 1968 HEPATITIS B (1 of 3 - 3-dose series) HEPATITIS B (1 of 3 - 3-dose series) [facility] Start: 1968 Hepatitis B Vaccine (1 of 3 - 3-dose series) Hepatitis B Vaccine (1 of 3 - 3-dose series) [facility] Start: 1968 Screening for malignant neoplasm of colon [facility] End: 03-19-2024 BONE MARROW ANALYSIS [facility] Work Phone: Comment on above: ONCE for 1 Occurrences starting 03/19/20 until 03/19/2024, 1 completed End: 09-10-2024 BONE MARROW ANALYSIS [facility] Work Phone: Comment on above: ONCE for 1 Occurrences starting 09/11/19 until 09/10/2024, 1 completed End: 03-19-2024 BONE MARROW CHROMOSOME ANAL [facility] Comment on above: ONCE for 1 Occurrences starting 03/19/20 until 03/19/2024 End: 09-10-2024 BONE MARROW CHROMOSOME ANAL [facility] Comment on above: ONCE for 1 Occurrences starting 09/11/19 until 09/10/2024 End: 07-21-2025 Colonoscopy Colonoscopy GI Routine Encounter for screening colonoscopy 1 Occurrences starting 07/22/2024 until 07/21/2025 [facility] Work Phone: Comment on above: 1 Occurrences starting 07/22/2024 until 07/21/2025 Diagnostic bone marko ow biopsies IMAGING GUIDED BIOPSY BONE MARROW (HEMATOLOGY) Radiology Routine CML (chronic myeloid leukemia) (HCC) Ordered: 01/14/2022 [facility] Work Phone: Comment on above: Ordered: 01/14/2022 Diagnostic bone marko ow biopsies IMAGING GUIDED BIOPSY BONE MARROW (HEMATOLOGY) Radiology Routine CML (chronic myeloid leukemia) (HCC) Ordered: 08/07/2022 [facility] Work Phone: Comment on above: Ordered: 08/07/2022 Diagnostic bone marko ow biopsies IMAGING GUIDED BIOPSY BONE MARROW (HEMATOLOGY) Radiology Routine CML (chronic myeloid leukemia) (HCC) Ordered: 05/22/2023 [facility] Work Phone: Comment on above: Ordered: 05/22/2023 End: 03-19-2024 DNA EXTRACTION BONE MARROW (BUFFY COAT) [facility] Comment on above: ONCE for 1 Occurrences starting 03/19/20 until 03/19/2024 End: 09-10-2024 DNA EXTRACTION BONE MARROW (BUFFY COAT) [facility] Comment on above: ONCE for 1 Occurrences starting 09/11/19 until 09/10/2024 End: 09-10-2022 ECG COMPLETE ECG COMPLETE ECG Routine CML (chronic myeloid leukemia) (HCC) 1 Occurrences starting 09/10/2021 until 09/10/2022 [facility] Work Phone: Comment on above: 1 Occurrences starting 09/10/2021 until 09/10/2022 End: 11-26-2022 ECG COMPLETE ECG COMPLETE ECG Routine CML (chronic myeloid leukemia) (HCC) 1 Occurrences starting 11/27/2021 until 11/26/2022 [facility] Work Phone: Comment on above: 1 Occurrences starting 11/27/2021 until 11/26/2022 End: 12-03-2022 ECG COMPLETE ECG COMPLETE ECG Routine CML (chronic myeloid leukemia) (HCC) 1 Occurrences starting 12/04/2021 until 12/03/2022 [facility] Work Phone: Comment on above: 1 Occurrences starting 12/04/2021 until 12/03/2022 End: 09-10-2022 Echocardiography ECHO Cardiology Routine CML (chronic myeloid leukemia) (HCC) 1 Occurrences starting 09/10/2021 until 09/10/2022 [facility] Work Phone: Comment on above: 1 Occurrences starting 09/10/2021 until 09/10/2022 End: 11-26-2022 Echocardiography ECHO Cardiology Routine CML (chronic myeloid leukemia) (HCC) 1 Occurrences starting 11/27/2021 until 11/26/2022 [facility] Work Phone: Comment on above: 1 Occurrences starting 11/27/2021 until 11/26/2022 End: 01-10-2023 Echocardiography ECHO Cardiology Routine CML (chronic myeloid leukemia) (HCC) 1 Occurrences starting 01/14/2022 until 01/10/2023 [facility] Work Phone: Comment on above: 1 Occurrences starting 01/14/2022 until 01/10/2023 End: 05-10-2023 Echocardiography ECHO Cardiology Routine CML (chronic myelocytic leukemia) (HCC) 1 Occurrences starting 05/23/2022 until 05/10/2023 [facility] Work Phone: Comment on above: 1 Occurrences starting 05/23/2022 until 05/10/2023 End: 12-05-2023 Echocardiography ECHO Cardiology Routine CML (chronic myeloid leukemia) (HCC) 1 Occurrences starting 12/05/2022 until 12/05/2023 [facility] Work Phone: Comment on above: 1 Occurrences starting 12/05/2022 until 12/05/2023 End: 01-23-2024 Echocardiography ECHO Cardiology Routine Chronic myeloid leukemia (HCC) 1 Occurrences starting 01/23/2023 until 01/23/2024 [facility] Work Phone: Comment on above: 1 Occurrences starting 01/23/2023 until 01/23/2024 End: 03-19-2024 FLOW CYTOMETRY FOR LEUKEMIA/LYMPHOMA (FCLL) REFLEX [facility] Comment on above: ONCE for 1 Occurrences starting 03/19/20 24 until 03/19/2024, 1 completed End: 09-10-2024 FLOW CYTOMETRY FOR LEUKEMIA/LYMPHOMA (FCLL) REFLEX [facility] Comment on above: ONCE for 1 Occurrences starting 09/11/19 25 until 09/10/2024, 1 completed Guidance for biopsy of Bone marrow IMAGING GUIDED BIOPSY BONE MARROW (HEMATOLOGY) Radiology Routine CML (chronic myeloid leukemia) (HCC) Ordered: 12/19/2023 [facility] Work Phone: Comment on above: Ordered: 12/19/2023 Guidance for biopsy of Bone marrow IMAGING GUIDED BIOPSY BONE MARROW (HEMATOLOGY) Radiology Routine CML (chronic myeloid leukemia) (HCC) Ordered: 07/21/2024 [facility] Comment on above: Ordered: 07/21/2024 Guidance for biopsy of Soft tissue IMAGING GUIDED BIOPSY SOFT TISSUE MASS/MUSCLE Radiology Routine CML (chronic myeloid leukemia) (HCC) Ordered: 07/14/2024 [facility] Work Phone: Comment on above: Ordered: 07/14/2024 Guidance for percutaneous biopsy of Bone IR BONE BIOPSY Radiology Routine CML (chronic myeloid leukemia) (HCC) Ordered: 07/21/2024 [facility] Comment on above: Ordered: 07/21/2024 Hepatitis B virus surface Ab [Presence] in Serum [facility] Hepatitis B virus surface Ag [Presence] in Serum or Plasma by Immunoassay [facility] Hepatitis C virus Ig G Ab [Presence] in Serum or Plasma by Immunoassay [facility] Immunizations Immunization Date Immunization Notes Care Provider Feliciano richard 09-19-2020 COVID-19 vaccine, ag e 12+ yr (PFIZER-BIONTECH - PURPLE TOP) Paula Tuttle RN [facility] 08-29-2020 COVID-19 vaccine, ag e 12+ yr (PFIZER-BIONTECH - PURPLE TOP) Paula Tuttle RN [facility] 04-21-2018 influenza, injectabl e, quadrivalent, preservative free Paula Tuttle RN [facility] 04-21-2018 influenza virus vacc ine, unspecified formulation Alexx Dalal APRN.CNP Work Phone: [facility] 05-21-2017 influenza, injectabl e, quadrivalent, preservative free Puala Tuttle RN [facility] 05-20-2017 influenza nasal, unspecified formulation Paula Tuttle RN [facility] 05-20-2017 pneumococcal conjuga te vaccine, 13 valent Paula Tuttle RN [facility] 07-19-2016 influenza, seasonal, injectable, preservative free Paula Tuttle RN [facility] 12-16-2010 tetanus toxoid, redu preet diphtheria toxoid, and acellular pertussis vaccine, adsorbed Paula Tuttle RN [facility] 07-13-2009 novel influenza-H1N1 -09, preservative-free, injectable Paula Tuttle RN [facility] Payers Date Payer Category Payer Worker's Compensation 1.2.84 [id number] 05-19-2024 Unknown 05-09-2024 Worker's Comp, Other (unspecified) WORKER'S COMPENSATION [id number] 05-09-2024 Unknown [id number] 12-09-2023 Self-pay [id number] 07-10-2022 Medicaid [id number]. 1.13.159. 2.7.3.244325.315 07-10-2022 Medicaid [id number] 06-09-2022 Unknown [employer]EF[employer] [id number] 06/09/2022-Present [phone] [address] [address] [place] [address] 1.2.840.227283.1.13.693. 2.7.3.819847.315 03-09-2021 Private Health Insurance xxx [id number]. 2.7.3.013408.315 11-07-2020 Medicaid [employer] MEDICAID [id number] 11/07/2020-Present [phone] [address] [place] [address] Medicaid [id number] [id number]. 2.7.3.496622.315 06-09-2020 Managed Care Other (unspecified) [employer] 1.2.840.833972.1.13.424. 2.7.9.773797.527.315 06-09-2020 Private Health Insurance 1.2 .840.211784.1.13.159. 2.7.3.455591.315 10-08-2019 Unknown [id number] 1970 Unknown [id number] 2.16.840.1.896696.3.579. 2.593 1968 Unknown [id number] 2.16.840.1.291298.3.579. 2.593 1968 Unknown [id number] 2.16.840.1.688164.3.579. 2.593 1968 Unknown [id number] 2.16.840.1.465386.3.579. 2.593 1968 Unknown [id number] 2.16.840.1.821910.3.579. 2.593 1968 Unknown [id number] 2.16.840.1.478102.3.579. 2.09-25-1968 Unknown [id number] 2.16.840.1.920823.3.579. 2.128509-25-1968 Unknown [id number] 2..840.1.001114.3.579. 2.128509-24-1968 Unknown [id number] 2.16.840.1.739758.3.579. 2.09-24-1968 Unknown [id number] 2..840.1.033120.3.579. 2.09-24-1968 Unknown [id number] 2.840.1.799747.3.579. 2.128509-24-1968 Unknown [id number] 2.840.1.301925.3.579. 2.128509-24-1968 Unknown [id number] 2.840.1.792637.3.579. 2.128509-24-1968 Unknown [id number] 2.840.1.477282.3.579. 2.128509-24-1968 Unknown [id number] 2.840.1.947945.3.579. 2.128509-24-1968 Unknown [id number] 2.840.1.178600.3.579. 2.128509-24-1968 Unknown [id number] 2.840.1.259853.3.579. 2.128509-24-1968 Unknown [id number] 2.840.1.136360.3.579. 2.128509-24-1968 Unknown [id number] 2.16.840.1.816145.3.579. 2.128509-24-1968 Unknown [id number] 2.840.1.094923.3.579. 2.128509-24-1968 Unknown [id number] 2.16.840.1.190665.3.579. 2.1286 1968 Unknown [id number] 2.16.840.1.423182.3.579. 2.128509-24-1968 Unknown [id number] 2.16.840.1.977087.3.579. 2.128509-24-1968 Unknown [id number] 2.16.840.1.617777.3.579. 2.128509-24-1968 Unknown [id number] 2.16.840.1.059765.3.579. 2.125809-24-1968 Unknown [id number] 2.840.1.556784.3.579. 2.125809-24-1968 Unknown [id number] 2.840.1.617402.3.579. 2.125809-24-1968 Unknown [id number] 2.840.1.679312.3.579. 2.125809-24-1968 Unknown [id number] 2.840.1.729947.3.579. 2.125809-24-1968 Unknown [id number] 2.840.1.460333.3.579. 2.125809-24-1968 Unknown [id number] 2.840.1.240240.3.579. 2.125809-24-1968 Unknown [id number] 2.840.1.797238.3.579. 2.125809-24-1968 Unknown [id number] 2.840.1.000729.3.579. 2.125809-24-1968 Unknown [id number] 2.840.1.210664.3.579. 2.125809-24-1968 Unknown [id number] 2.16840.1.945577.3.579. 2.125809-24-1968 Unknown [id number] 2.16840.1.815208.3.579. 2.125809-24-1968 Unknown [id number] 2.16.840.1.549193.3.579. 2.125809-24-1968 Unknown [id number] 2.16.840.1.782235.3.579. 2.125809-24-1968 Unknown [id number] 2.16.840.1.610079.3.579. 2.125809-24-1968 Unknown [id number] 2.16.840.1.195732.3.579. 2.125809-24-1968 Unknown [id number] 2.16.840.1.397170.3.579. 2.125809-24-1968 Unknown [id number] 2.16.840.1.270713.3.579. 2.125809-24-1968 Unknown [id number] 2.16.840.1.374086.3.579. 2.125809-24-1968 Unknown [id number] 2.16.840.1.013796.3.579. 2.125809-24-1968 Unknown [id number] 2.16.840.1.548035.3.579. 2.125809-24-1968 Unknown [id number] 2.16.840.1.535037.3.579. 2.125809-24-1968 Unknown [id number] 2.16.840.1.874437.3.579. 2.125809-24-1968 Unknown [id number] 2.16.840.1.359003.3.579. 2.125809-24-1968 Unknown [id number] 2.16.840.1.491127.3.579. 2.125809-24-1968 Unknown [id number] 2.16.840.1.953591.3.579. 2.125809-24-1968 Unknown [id number] 2.16.840.1.900715.3.579. 2.125809-24-1968 Unknown [id number] 2.16.840.1.540325.3.579. 2.125809-24-1968 Unknown [id number] 2.16.840.1.021271.3.579. 2.125809-24-1968 Unknown [id number] 2.16.840.1.479386.3.579. 2.125809-24-1968 Unknown [id number] 2.16.840.1.573419.3.579. 2.125809-24-1968 Unknown [id number] 2.16.840.1.773020.3.579. 2.125809-24-1968 Unknown [id number] 2.16.840.1.901160.3.579. 2.125809-24-1968 Unknown [id number] 2.840.1.032165.3.579. 2.125809-24-1968 Unknown [id number] 2.840.1.212664.3.579. 2.125809-24-1968 Unknown [id number] 2.840.1.983437.3.579. 2.125809-24-1968 Unknown [id number] 2.840.1.311414.3.579. 2.125809-24-1968 Unknown [id number] 2.840.1.126521.3.579. 2.125809-24-1968 Unknown [id number] 2.16.840.1.744433.3.579. 2.125809-24-1968 Unknown [id number] 2.840.1.054703.3.579. 2.125809-24-1968 Unknown [id number] 2.16.840.1.726785.3.579. 2.125809-24-1968 Unknown [id number] 2.16840.1.513875.3.579. 2.125809-24-1968 Unknown [id number] 2.16840.1.492450.3.579. 2.125809-24-1968 Unknown [id number] 2.16840.1.226620.3.579. 2.125809-24-1968 Unknown [id number] 2.16.840.1.756627.3.579. 2.125809-24-1968 Unknown [id number] 2.16.840.1.253065.3.579. 2.125809-24-1968 Unknown [id number] 2.16.840.1.519274.3.579. 2.125809-24-1968 Unknown [id number] 2.16840.1.475472.3.579. 2.125809-24-1968 Unknown [id number] 2.16.840.1.888029.3.579. 2.125809-24-1968 Unknown [id number] 2.840.1.118708.3.579. 2.125809-24-1968 Unknown [id number] 2.840.1.400424.3.579. 2.125809-24-1968 Unknown [id number] 2.840.1.339967.3.579. 2.125809-24-1968 Unknown [id number] 2.840.1.311373.3.579. 2.125809-24-1968 Unknown [id number] 2.840.1.904853.3.579. 2.125809-24-1968 Unknown [id number] 2.840.1.171313.3.579. 2.125809-24-1968 Unknown [id number] 2.840.1.666016.3.579. 2.125809-24-1968 Unknown [id number] 2.840.1.545574.3.579. 2.125809-24-1968 Unknown [id number] 2.16840.1.480615.3.579. 2.125809-24-1968 Unknown [id number] 2.16.840.1.719486.3.579. 2.125809-24-1968 Unknown [id number] 2.16.840.1.183902.3.579. 2.125809-24-1968 Unknown [id number] 2.16.840.1.787252.3.579. 2.125809-24-1968 Unknown [id number] 2.16.840.1.207046.3.579. 2.125809-24-1968 Unknown [id number] 2.16.840.1.290450.3.579. 2.125809-24-1968 Unknown [id number] 2.16.840.1.875111.3.579. 2.125809-24-1968 Unknown [id number] 2.16.840.1.477960.3.579. 2.125809-24-1968 Unknown [id number] 2.16.840.1.430855.3.579. 2.125809-24-1968 Unknown [id number] 2.840.1.762403.3.579. 2.125809-24-1968 Unknown [id number] 2..840.1.580813.3.579. 2.125809-24-1968 Unknown [id number] 2.16.840.1.917035.3.579. 2.125809-24-1968 Unknown [id number] 2.16.840.1.758929.3.579. 2.125809-24-1968 Unknown [id number] 2.16.840.1.403000.3.579. 2.125809-24-1968 Unknown [id number] 2.16.840.1.462197.3.579. 2.125809-24-1968 Unknown [id number] 2.16.840.1.801097.3.579. 2.125809-24-1968 Unknown [id number] 2.16.840.1.808582.3.579. 2.125809-24-1968 Unknown [id number] 2.16.840.1.671242.3.579. 2.125809-24-1968 Unknown [id number] 2.16.840.1.168588.3.579. 2.125809-24-1968 Unknown [id number] 2.16.840.1.375530.3.579. 2.125809-24-1968 Unknown [id number] 2.16.840.1.196017.3.579. 2.125809-24-1968 Unknown [id number] 2.16.840.1.563547.3.579. 2.125809-24-1968 Unknown [id number] 2.16.840.1.195955.3.579. 2.125809-24-1968 Unknown [id number] 2.16.840.1.555085.3.579. 2.125809-24-1968 Unknown [id number] 2.16.840.1.018880.3.579. 2.125809-24-1968 Unknown [id number] 2.16.840.1.189401.3.579. 2.125809-24-1968 Unknown [id number] 2.16.840.1.094931.3.579. 2.125809-24-1968 Unknown [id number] 2.16.840.1.332375.3.579. 2.125809-24-1968 Unknown [id number] 2.16.840.1.301539.3.579. 2.125809-24-1968 Unknown [id number] 2.16.840.1.591123.3.579. 2.125809-24-1968 Unknown [id number] 2.16.840.1.192895.3.579. 2.125809-24-1968 Unknown [id number] 2.16.840.1.239263.3.579. 2.125809-24-1968 Unknown [id number] 2.16.840.1.955921.3.579. 2.125809-24-1968 Unknown [id number] 2.16.840.1.976563.3.579. 2.125809-24-1968 Unknown [id number] 2.16.840.1.589074.3.579. 2.1259 1968 Unknown [id number] 2.16.840.1.780533.3.579. 2.1259 1968 Unknown [id number] 2.16.840.1.630624.3.579. 2.1259 1968 Unknown [id number] 2.16.840.1.881977.3.579. 2.1259 06-09-1961 Unknown [id number] [birth year]1959 Unknown [id number] [birth year]-09[birth year]1959 Unknown [id number] Unknown [place] BC/BS [id number] Unknown [id number] 2.16.840.1.430688.3.579. 2.531 Unknown [id number] 2.16.840.1.297808.3.579. 2.531 Social History Date Type Detail Facility Start: 02-18-2022 End: 05-16-2022 Tobacco smoking status NHIS Never smoked tobacco [facility] Start: 09-03-2021 End: 02-18-2025 Alcohol intake Current drinker of alcohol (finding) [facility] Start: 1970 Sex Assigned At Not on file [facility] Start: 08-24-2021 End: 05-13-2022 Exposure to SARS-CoV-2 (event) Not sure [facility] Start: 02-18-2022 End: 05-16-2022 Tobacco use and exposure Smokeless tobacco non-user [facility] Start: 07-20-2020 End: 10-30-2022 History of Social function [facility] Start: 07-20-2020 End: 10-30-2022 Tobacco use panel [facility] Adult Depression Screening Assessment 1 [facility] Start: 1970 Sex Assigned At Male [facility] Start: 03-03-2024 End: 01-24-2025 Alcoholic beverage intake Ex-drinker (finding) [facility] Start: 03-20-2023 Alcohol Comment social, rare [facility] Start: 01-12-2015 Sex Male (finding) [facility] Start: 03-23-2023 Gender identity Identifies as male gender (finding) [facility] Start: 03-23-2023 Sexual orientation Heterosexual (finding) [facility] Medical Equipment Procedure Code Equipment Code Equipment Origin al Text Equipment Identifier Dates [id number], [id number], [id number] Start: 01-31-2023 End: 05-31-2024 Comment on above: Use with blood gluco se test one time daily Functional Status Date Assessment Result Facility 11-23-2014 Are you deaf, or do you have serious difficulty hearing No 11/23/2014 3:20 PM Bety Patton RN No [facility] 11-23-2014 Are you blind, or do you have serious difficulty seeing, even when wearing glasses No 11/23/2014 3:20 PM Bety Patton RN [facility] 11-23-2014 Do you have serious difficulty walking or climbing stairs No 11/23/2014 3:20 PM Bety Patton RN No [facility] 11-23-2014 Do you have difficul ty dressing or bathing No 11/23/2014 3:20 PM Bety Patton RN No [facility] 11-23-2014 Because of a physica l, mental, or emotional condition, do you have difficulty doing errands alone such as visiting a physician's office or shopping No 11/23/2014 3:20 PM Bety Patton RN No [facility] Mental Status Date Assessment Result Facility 11-23-2014 Because of a physica l, mental, or emotional condition, do you have serious difficulty concentrating, remembering, or making decisions No 11/23/2014 3:20 PM Bety Patton RN No [facility] Clinical Notes 09-03-2021 to 02-18-2025 Mal Coello MD - 02/18/2025 8:00 AM Lindsay Odom RN - 02/18/2025 8:00 AM Terrance Hernandez NP - 01/24/2025 8:15 AM Olivier Bahena PT - 01/18/2025 3:00 PM EDTPatient Instructions Note Date & Type Note Facility 02-18-2025 History of Present illness Narrative Derrell Avitia Jr. Date of visit: 02/18/2025 Date [...] Med Name: trial chemo drug, unknown name [id number] pravastatin (PRAVACHOL) 80 mg tablet Take 1 [...] History: Diagnosis Date CML (chronic myelocytic leukemia) ([facility]) Diabetes mellitus type 2, controlled ([facility]) Hyperlipidemia Hypertension Rash Sleep [...] Interpersonal Safety: Unknown (07/31/2023) Received from [facility] [place] [facility] Fear of Current [...] kg (263 lb) SpO2 100% BMI 37.74 kg/m Orders Placed or Reconciled This Encounter Medications [...] benign monitor in 2023 CML follows at [facility] Obesity Obstructive sleep apnea not compliant with CPAP Recent left shoulder surgery with residual left shoulder pain -- there is a discrepancy between clear asymmetric septal thickness on multiple TTE and MRI ! This needs to be repeated and reviewed with advanced cardiology information technology audit manager in the future -- patient has a [...] did not take his blood pressure medication yet instructed to check it at home may need up titration of his lisinopril or addition of beta christina -- if he is still has cough complaint next visit I will probably switch his lisinopril to Arb Otherwise patient is stable from cardiovascular standpoint has no other symptoms. He will follow-up in 6 [facility] with Dr. Jesus Manuel COELLO MD 02/18/25 8:24 AM TODAYS ORDERS Orders Placed This Encounter Procedures Holter Monitor 3 - 5 Days (In Office) POCT EKG FOLLOW UP Return in about 6 months (around 08/18/2025). PCP: FANNY RAMÍREZ Referring Physician: Rolf Chung APRN-DOMINIC [address] [place] [address] Pt scheduled for Holter in office. Instructions reviewed with pt. documented in this encounter [facility] 01-24-2025 History of Present illness Narrative Images from the original note were not included. HISTORY OF PRESENT ILLNESS: EST PT Derrell Avitia is an 54 y.o. @ male. EST [facility] PT S/P LT SHOULDER SCOPE (RCR, SAD, BICEPS TENODESIS) 08/16/24 (~5MO) @ [facility]- PHYSICAL THERAPY @ [facility] SHOULDER. DOESN'T USUALLY LAST LONG. OCCAS ENDS UP SLEEPING ON SIDE. WILL FEEL TIGHT AND TIRED AFTER WORK. TRIES STRETCHING. NO PAIN MEDS. +N/T IN LT RF AND LF. DENIES POPPING, GRINDING. NOTES IMPROVEMENT WITH ROM. CONTINUES WORKING WITH RESTRICTIONS; 10 LB LIMIT ALLERGIES: Allergies Allergen Reactions Morphine GI intolerance HOME MEDICATIONS: Current Outpatient Medications Medication Instructions amLODIPine (NORVASC) 10 mg, Oral, Daily B-D UF III MINI PEN NEEDLES 31G X 5 MM [facility] Continuous Blood Gluc [employer] Sales Representative (FreeStyle Carlitos 2 [place]) device USE DIRECTED TO CHECK GLUCOSE FOUR TIMES DAILY Continuous Glucose Sensor (FreeStyle Carlitos 3 Plus Sensor) [facility] FreeStyle Precision Addison Test test strip 1 each, Daily glipiZIDE XL (GLUCOTROL XL) 5 mg, Oral, Daily, Do not crush, chew, or split. insulin glargine (Lantus SoloStar) 100 UNIT/ML pen 40 units twice a day insulin lispro (HumaLOG) 100 UNIT/ML injection 10 units for at breakfast and lunch, and 22 units at dinner time, plus sliding scale. Max 78 units per daily lisinopril 20 mg, Oral, Daily pravastatin (PRAVACHOL) 80 mg, Oral, Daily PHYSICAL EXAM: Left Shoulder Exam Tenderness The patient is experiencing no tenderness. Range of Motion Active abduction: 120 Forward flexion: 140 Muscle Strength Left shoulder normal muscle strength: 4+/5. Other Erythema: absent Sensation: normal Pulse: present Vitals: There is no height or weight on file to calculate BMI. Tobacco Use: Low Risk (01/24/2025) Patient History Smoking Tobacco Use: Never Smokeless Tobacco Use: Never Passive Exposure: Not on file Alcohol Use: Not on file IMAGING: Procedures No orders of the defined types were placed in this encounter. ASSESSMENT: ICD-10-CM 1. Sprain of left shoulder, initial encounter S43.402A 2. Tear of left supraspinatus tendon M75.102 PLAN: Patient is doing well with improved ROM and strength. I recommend he still work on strength with PT but may return to work full duty. I recommend he use tylenol/ibuprofen for any breakthrough pain. He will call with any worsening symptoms but will follow up in 6 months for RCK. Consider MMI at that appointment. Questions answered in laymen terms at the bedside. The diagnosis, home exercise plan and any ongoing restrictions/ recommendations reviewed. If unable to be reached in office, I recommend evaluation at nearest Emergency Room if any symptoms worsened or new symptoms develop for requiring urgent evaluation. documented in this encounter [facility] 01-18-2025 History of Present illness Narrative Images from the original note were not included. Physical Therapy Physical Therapy Treatment Visit Patient Name: Derrell Avitia Today's Date: 01/18/2025 Encounter Diagnoses Name Primary? Tear of left supraspinatus tendon Yes Left bicipital tenosynovitis Sprain of left shoulder, unspecified shoulder sprain type, initial encounter Visit number: 10/30 on C9 Continue Physical Therapy on new C9 through 03/16/15 Time in: 3:00 pm Time out: 3:58 pm Supervised time: 40 min Total time: 58 min Subjective Derrell Avitia 54 y.o. male presents to physical therapy w/ chief c/o L shoulder/arm pain. Mechanism of Onset: trip/fall 05/19/24 a work, SX 08/16/24, pt was last here 11/18/24, improving overall but still c/o stiffness and weakness. 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 (01/04/25) Treatment Interventions Manual Therapy:x 10 min PROM and stretching all planes, massage ant shoulder bicep area and lateral delt areas. PROM near normal limits flex and abd, min restricted ER. Therapeutic Exercise: x30 min sup, ROM/flexibility, strength as appropriate. Modalities: CP x 10 min Assessment/Plan L shoulder pain, decreased ROM, weakness causing increased difficulty with ADLs/self care, decreased QOL s/p RCR, SAD, biceps tenodesis 08/16/24 following trip/fall injury at work 05/19/24 Pt demos good tolerance to session overall, fatigue noted throughout due to coming straight from full day at work, especially overhead in standing towards end of session. AROM overhead remains min limited in standing. documented in this encounter [facility] 01-17-2025 History of Present illness Narrative Associated Problem(s): Gastroesophageal reflux disease without esophagitis Recommendations: freq small meals, nothing to eat or drink at least 2 hours prior to bed, limit caffeine, alcohol, as well as spicy foods Meds to limit or avoid if possible: NSAIDS Elevate HOB if possible Will trial pepcid 20mg twice a day Pt states he is often sick on Friday or Sundays for about a month and a half Pt states he has pressure, gas, loose stools often when waking in the morning Pt works first shift has been there for 11 years, pt feels fatigue and does not feel the CPAP machine helps with that, pt also mentions that there is no new elements at work and enjoys his job No bloody stools, No black stools Pt does get nausea and has had vomiting once Typically does not get heart burn No other pain in abd area other than the gas/bloating Images from the original note were not included. Derrell Avitia is a 54 y.o. male presents with chief complaint of Diabetes HPI: Pt states he is often sick on Friday or Sundays for about a month and a half Pt states he has pressure, gas, loose stools often when waking in the morning No GLP 1 injectable, same chemo pill, does not have gallbladder. No significant GERD Pt works first shift has been there for 11 years, pt feels fatigue and does not feel the CPAP machine helps with that, pt also mentions that there is no new elements at work and enjoys his job No bloody stools, No black stools Pt does get nausea and has had vomiting once Typically does not get heart burn No other pain in abd area other than the gas/bloating Diabetes He presents for his follow-up diabetic visit. He has type 2 diabetes mellitus. His disease course has been fluctuating. There are no hypoglycemic associated symptoms. Pertinent negatives for hypoglycemia include no dizziness, nervousness/anxiousness, seizures or tremors. Associated symptoms include foot paresthesias. Pertinent negatives for diabetes include no blurred vision, no chest pain, no polydipsia, no polyphagia, no polyuria, no visual change and no weight loss. There are no hypoglycemic complications. Diabetic complications include peripheral neuropathy. Pertinent negatives for diabetic complications include no CVA or heart disease. Risk factors for coronary artery disease include diabetes mellitus, dyslipidemia, hypertension, male sex and obesity. Current diabetic treatment includes insulin injections. His overall blood glucose range is 180-200 mg/dl. An ALDEN inhibitor/angiotensin II receptor christina is being taken. He does not see a parer.Eye exam is current. Hypertension This is a chronic problem. The current episode started more than 1 year ago. The problem is unchanged. The problem is controlled. Associated symptoms include palpitations (occ) and peripheral edema. Pertinent negatives include no blurred vision, chest pain, orthopnea or shortness of breath. There are no associated agents to hypertension. Risk factors for coronary artery disease include diabetes mellitus, dyslipidemia, male gender and obesity. Past treatments include ALDEN inhibitors. The current treatment provides significant improvement. There are no compliance problems. There is no history of CAD/OK, CVA or heart failure. SUBJECTIVE: MEDICATIONS: Current Outpatient Medications Medication Instructions amLODIPine (NORVASC) 10 mg, Oral, Daily B-D UF III MINI PEN NEEDLES 31G X 5 MM [facility] Continuous Blood Gluc [employer] Sales Representative (FreeStyle Carlitos 2 [place]) device USE DIRECTED TO CHECK GLUCOSE FOUR TIMES DAILY Continuous Glucose Sensor (FreeStyle Carlitos 3 Plus Sensor) [facility] [employer] Precision Addison Test test strip 1 each, Daily glipiZIDE XL (GLUCOTROL XL) 5 mg, Oral, Daily, Do not crush, chew, or split. insulin glargine (Lantus SoloStar) 100 UNIT/ML pen 40 units twice a day insulin lispro (HumaLOG) 100 UNIT/ML injection 10 units for at breakfast and lunch, and 22 units at dinner time, plus sliding scale. Max 78 units per daily lisinopril 20 mg, Oral, Daily pravastatin (PRAVACHOL) 80 mg, Oral, Daily ALLERGIES: Allergies Allergen Reactions Morphine GI intolerance REVIEW OF SYMPTOMS: Review of Systems Constitutional: Negative for activity change, appetite change, unexpected weight change and weight loss. HENT: Negative for ear pain, nosebleeds, sneezing, trouble swallowing and voice change. Eyes: Negative for blurred vision, pain, discharge and visual disturbance. Respiratory: Negative for apnea, chest tightness, shortness of breath and wheezing. Cardiovascular: Positive for palpitations (occ). Negative for chest pain, orthopnea and leg swelling. Gastrointestinal: Negative for abdominal distention, blood in stool, constipation and diarrhea. Genitourinary: Negative for decreased urine volume, difficulty urinating, dysuria and hematuria. Skin: Negative for color change. Neurological: Negative [...] moderate risk for fall Chronic myeloid leukemia (HCC) Degenerative lumbar disc 08/07/2023 Diabetic neuropathy (HCC) Gastritis GERD (gastroesophageal reflux disease) Hyperlipidemia Hyponatremia Migraine headache Obesity (BMI 30-39.9) 05/06/2023 Pancreatitis (HHS-HCC) Primary hypertension 05/06/2023 Oncology increase dose on amlodipine since [...] Right 12/09/2023 RT SHOULDER SCOPE- DR KILPATRICK SHOULDER SURGERY Left 08/16/2024 LT shoulder scope - Dr Kilpatrick SPINE SURGERY TONSILLECTOMY family history includes Alzheimer's disease in an other family member; Diabetes in his father, mother, and another family member; Heart disease in his mother; Hypertension in his father and mother; Stroke in an other family member; cva in an other family member. OBJECTIVE: Visit Vitals BP 98/78 (BP Location: Left arm, Patient Position: Sitting, BP Cuff Size: Large adult) Pulse 78 Temp 98 F (Temporal) Resp 20 Wt 257 lb 12.8 oz SpO2 96% BMI 36.99 kg/m Smoking Status Never BSA 2.4 m [...] normal. Breath sounds: Normal breath sounds. No wheezing or rhonchi. Abdominal: General: Bowel sounds are normal. Palpations: Abdomen is soft. Musculoskeletal: Cervical back: Neck supple. Right lower leg: Edema present. Left lower leg: Edema present. Comments: Trace pedal bilat Skin: General: Skin is warm and dry. Capillary Refill: Capillary refill takes 2 to 3 seconds. Neurological: General: No focal deficit present. Mental Status: He is alert. Psychiatric: Mood and Affect: Mood normal. Behavior: Behavior normal. Thought Content: Thought content normal. Judgment: Judgment normal. ASSESSMENT AND PLAN: Follow up in about 6 weeks (around 02/28/2025) for Recheck. Problem List Items Addressed This Visit Essential (primary) hypertension Please check blood pressure daily and record DASH diet Limit caffeine Take medication as directed Contact office if chest pain, pressure, dizziness, shortness of breath, swelling legs Recommend slow position changes Current meds: amlodipine and lisinopril Type 2 diabetes mellitus with hyperglycemia, with long-term current use of insulin ([facility]) Check blood sugars daily, notify if <70 [...] and simple sugars. Current meds: jardiance, insulin, alden, statin A1c: 11.4% 12/06/24, 8.5% on 06/16/24, had been having difficulty getting meds, in that 90 day period, however the previous A1c was 10.5% Out of meds: 2-3 months Restarted meds 30 days ago Difficulty affording meds and work schedule sometimes cannot take TID bolus Will increase basal to 40 units BID and cont bolus Fu in 6 weeks Morbid (severe) obesity due to excess calories ([facility]) Discussed with patient their BMI (actual, verses recommended). We have also discussed lifestyle modifications: attempts to perform physical activity as chronic conditions allow, also to monitor dietary intake: increasing protein/fruits/veggies and lowering carb intake (unless contraindicated). Limit sodas, juices, and sugary drinks. Gastroesophageal reflux disease without esophagitis - Primary Recommendations: freq small meals, nothing to eat or drink at least 2 hours prior to bed, limit caffeine, alcohol, as well as spicy foods Meds to limit or avoid if possible: NSAIDS Elevate HOB if possible Will trial pepcid 20mg twice a day Associated Problem(s): Morbid (severe) obesity due to excess calories ([facility]) Discussed with patient their BMI (actual, verses recommended). We have also discussed lifestyle modifications: attempts to perform physical activity as chronic conditions allow, also to monitor dietary intake: increasing protein/fruits/veggies and lowering carb intake (unless contraindicated). Limit sodas, juices, and sugary drinks. Associated Problem(s): Type 2 diabetes mellitus with hyperglycemia, with long-term current use of insulin ([facility]) Check blood sugars daily, notify if <70 [...] and simple sugars. Current meds: jardiance, insulin, alden, statin A1c: 10.7% on 12/21/24 (ordered by different provider), 11.4% 12/06/24, 8.5% on 06/16/24, had been having difficulty getting meds, in that 90 day period, however the previous A1c was 10.5% Difficulty affording meds and work schedule sometimes cannot take TID bolus Associated Problem(s): Essential (primary) hypertension Please check blood pressure daily and record DASH diet Limit caffeine Take medication as directed Contact office if chest pain, pressure, dizziness, shortness of breath, swelling legs Recommend slow position changes Current meds: amlodipine and lisinopril documented in this encounter [facility] 01-17-2025 Instructions Rolf Chung NP - 01/17/2025 3:20 PM EDT Get labs, and urine Try pepcid 20mg 1 pill twice a day Recommendations: freq small meals, nothing to eat or drink at least 2 hours prior to bed, limit caffeine, alcohol, as well as spicy foods documented in this encounter [facility] 01-13-2025 History of Present illness Narrative Images from the original note were not included. Physical Therapy Physical Therapy Treatment Visit Patient Name: Derrell Avitia Today's Date: 01/13/2025 Encounter Diagnoses Name Primary? Tear of left supraspinatus tendon Yes Left bicipital tenosynovitis Sprain of left shoulder, unspecified shoulder sprain type, initial encounter Visit number: 09/30 on C9 Continue Physical Therapy on new C9 through 03/16/15 Time in: 3:01 pm Time out: 4:00 pm Supervised time: 46 min Total time: 59 min Subjective Derrell Avitia 54 y.o. male presents to physical therapy w/ chief c/o L shoulder/arm pain. Mechanism of Onset: trip/fall 05/19/24 a work, SX 08/16/24, pt was last here 11/18/24, improving overall but still c/o stiffness and weakness. 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 (01/04/25) Treatment Interventions Manual Therapy:x 10 min PROM and stretching all planes, massage ant shoulder bicep area and lateral delt areas. PROM near normal limits flex and abd, min restricted ER. Therapeutic Exercise: x36 min sup, ROM/flexibility, strength as appropriate. Modalities: CP x 10 min Assessment/Plan L shoulder pain, decreased ROM, weakness causing increased difficulty with ADLs/self care, decreased QOL s/p RCR, SAD, biceps tenodesis 08/16/24 following trip/fall injury at work 05/19/24 Pt demos good tolerance to session, fatigue noted throughout due to coming straight from full day at work, especially documented in this encounter [facility] 01-04-2025 History of Present illness Narrative Images from the original note were not included. Physical Therapy Physical Therapy Treatment Visit Patient Name: Derrell Avitia Today's Date: 01/04/2025 Encounter Diagnoses Name Primary? Tear of left supraspinatus tendon Yes Left bicipital tenosynovitis Sprain of left shoulder, unspecified shoulder sprain type, initial encounter Visit number: 07/02 on C9 Continue Physical Therapy on new C9 through 03/16/15 Time in: 9:55 am Time out: 11:00 am Supervised time: 55 min Total time: 70 min Subjective Derrell Avitia 54 y.o. male presents to physical therapy w/ chief c/o L shoulder/arm pain. Mechanism of Onset: trip/fall 05/19/24 a work, SX 08/16/24, pt was last here 11/18/24, improving overall but still c/o stiffness and weakness. 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 (01/04/25) Treatment Interventions Manual Therapy:x 15 min PROM and stretching all planes, massage ant shoulder bicep area and lateral delt areas Therapeutic Exercise: x 40 min sup, 45 min total per HEBERT grid, ROM/flexibility, strength as appropriate. Modalities: CP x 10 min Assessment/Plan L shoulder pain, decreased ROM, weakness causing increased difficulty with ADLs/self care, decreased QOL s/p RCR, SAD, biceps tenodesis 08/16/24 following trip/fall injury at work 05/19/24 Pt demo's fair to good tolerance to session overall, quick to fatigue especially overhead AROM, with break from PT likely not helping, Continue POC progressing HEBERT as appropriate, continue MT, modalities prn. 24 visits approved through 03/16/25. Next RTD 01/24/25. Try adding standing shoulder press overhead with 1# vs no weight next session and increase reps/wts with other as appropriate. documented in this encounter [facility] 12-22-2024 History of Present illness Narrative CRC 1 Documentation IRB#: [id number], [facility]# [id number], Study Title: A phase 1b study of the pharmacokinetics, safety and efficacy of orally administered [id number] in subjects with refractory chronic myeloid leukemia (CML) and PH+ acute lymphoblastic leukemia (PH+ ALL) Informed Consent signed on 06/19/2020, prior to any study related procedures being performed that are not SOC. Pt Study #: [id number] Treatment Arm: CML CP and AP Patient presents for: Cycle 57 Day 28 The following research tasks have been completed per protocol: EKGs (Triplicate): Yes Given to RN/LARA Pierce for review. Tarah Harrington, Research Coordinator documented in this encounter [facility] 12-22-2024 History of Present illness Narrative Summary: ACTG/ 20-998 C58 D1 ACTG 1920 20-998 A phase 1b study of the pharmacokinetics, safety and efficacy of orally administered [id number] in subjects with refractory chronic myeloid leukemia [...] participate on the study by the sponsor 12/22/2024 Cycle 58 day 1 Subject #: [id number] Patient here today with his , pleasant and engaged in conversation. Dr. Howell reviewed all labs and AE's with attributions. ECHO LVEF: pending results BMBx: 09/10/2024 showed Overall, the morphologic features are relatively unremarkable; however, ancillary testing may be more sensitive for residual/persistent CML EKG: QTcF 411 ms, 410 ms, 419 ms PE: Dr. Howell ECO VS: 12/22/24 Weight 117 kg (257 lb 15 oz) Temp 36.8 C (98.3 F) Pulse 63 Resp 15 BP 141/82 SpO2 100 % PAST MEDICAL HISTORY Diagnosis Date Status [...] L4 and L5 infusion Prior to 03/2012 [place] ANESTH,KNEE JOINT; NOS right knee Prior to [...] 12/2014 -- 03/2016 Bosutinib 03/2016 - 05/02/2017 [facility] [id number] trial of Ponatinib 05/21/2017 - [...] %IS .52 03/17/2024 BCR/ABL1 P210 %IS .18 06/16/2024 BCR/ABL1 P210 %IS .27 Medications: NKA Medication Dose Start Date Stop Date Comments Ibuprofen 800 mg once daily as needed per patient 10/2015 For general body aches Insulin Lantus 35 units daily Per patient 10/2022 For diabetes Kenalog cream Apply 2x/day to affected areas. 05/29/2020 For rash Lovaza (2) 1gm capsules orally 2x/day 06/22/2020 on hold restarted 09/03/2021 Patient reported not taking 12/22/2024 Hypertriglyceridemia Advil 400 mg orally every 6 [...] 06/17/2020 For leukocytosis Decadron 4 mg orally 4/28/02129 10/06/2020 For poison radha Norvasc 5 mg orally once a day 05/13/2022 05/22/2023 Blood pressure Ava 5/325 mg 1 tab PO x 1 [...] mg orally once a day 04/17/202311/2023 Diabetes Percocet 5/325 mg 08/16/2024 08/23/2024 Post op surgical pain of left shoulder Toxicities: CTCAE V. 5 SCREENING all predate [...] 06/12/2020 Aspartate aminotransferase increased Grade 1 UNRELATED 53 Start date: 06/12/2020. Resolved: ongoing. Drugs used to treat: none. Outcome: Still present. Hyperglycemia Grade 2 UNRELATED Start date: 06/05/2020. Resolved: ongoing. Drugs used to treat:yes. Outcome: Still present. Hypertriglyceridemia Grade 2 UNRELATED Start date: 06/12/2020. Resolved: ongoing. Drugs used to treat: none. Outcome: Still present. Alkaline phosphatase Grade 1 UNRELATED 136 (prior to drug)Start date: 06/19/2020. Resolved: ongoing. Drugs used to treat:no Outcome:present intermittently. Hyponatremia Grade 1 UNRELATED (prior to drug) Start date 06/19/2020 Resolved:ongoing.Drugs used to treat: no. Outcome: present intermittently CTCAE v.5 Fasting labs 12/22/2024 Hypertension Grade 1 Unrelated Start date 08/14/2020 [...] Drugs used to treat: ibuprofen Outcome: present Broken teeth Grade 1 Start date 08/06/2023 Resolved:ongoing. Drugs used to treat:yes. Outcome: still present. Alkaline phosphatase increased (347) Grade 2. Possibly Related (03/17/2024) Start date: 12/24/2023. Resolve date: ongoing. Drugs to treat: none. Outcome:present intermittently. Baseline abnormal value of 136 on 06/19/2020. Alanine aminotransferase increased Grade 1. Unrelated. Start date: 12/24/2023. Resolve date: 12/22/2024. Drugs to treat: none. Outcome: resolved Urinary urgency Grade 1. Unrelated. Start date: pt unknown Resolve date: ongoing. Drugs to treat: none. Outcome: still present Peripheral motor neuropathy (d/t diabetes) Grade 1. Unrelated. Start date: pt reported on 12/22/2024 Resolve date: ongoing. Drugs to treat: none. [...] Resolved:12/2023. Drugs used to treat:yes. Outcome: resolved. Hyponatremia Grade 1 Unrelated Start date 01/22/2023 Resolved:12/24/2023. Drugs used to treat:no. Outcome: resolved. Lipase Grade 1 Possibly related Start date:09/08/2024 Resolved: 09/15/2024 Drugs used to treat: no. Outcome:resolved Localized edema (left hand) Grade 1 Unrelated Start date:09/05/2024 Resolved: 09/12/2024 Drugs used to treat: no. Outcome:resolved Pain-left jaw Grade 1 Possibly related Start date:09/01/2024 Resolved: 09/12/2024 Drugs used to treat: no. Outcome:resolved Cardiac troponin T increased Grade 1 Possibly related Start date:09/08/2024 Resolve date: 09/22/2024 ongoing Drugs used to treat: no. Outcome:resolved Patients last dose of study drug was 12/20/2024 Patient dosed today at 11:40AM Previously: Re-educated patient on how to complete the [...] Patient verbalized understanding of all information provided. 12/22/2024 Patient returned drug diary from previous visit completed. Patient returned: 3 bottles, 2 empty and 1 bottle with 54 tablets. The count is accurate. Patient was provided a predated drug diary for cycles 58, 59, 60. Patient was given drug: yes. 3 bottles of drug. 60 pills per bottle of 10 mg pills. To be dosed with 30 mg of HQP every other day. Lot# [id number] Patient presented today to participate on the trial ACTG 1920 / IRB 20-998. Patient to return in 3 months, appointment will be scheduled and populate on [facility]. Patient understands that he must call nurse [...] nurse's contact information and after hours fellows office automation clerk. Patient understands that this participation is voluntary and that he may withdraw at any time during the trial. Teresa Pierce RN documented in this encounter [facility] 12-13-2024 History of Present illness Narrative Images from the original note were not included. HISTORY OF PRESENT ILLNESS: EST PT Derrell Avitia is an 54 y.o. @ male. 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 STATES IT WILL BE A QUICK SHARP PAIN AND GOES AWAY. NO PAIN MEDS. DENIES N/T. DENIES POPPING, GRINDING. DOING HEP. FEELS LIKE HE IS AT A STANDSTILL WITH ROM. WOKE HIM AT HS ONE TIME. CONTINUES WORKING WITH RESTRICTIONS; 5 LB LIMIT ALLERGIES: Allergies Allergen Reactions Morphine GI intolerance HOME MEDICATIONS: Current Outpatient Medications Medication Instructions amLODIPine (NORVASC) 10 mg, Oral, Daily B-D UF III MINI PEN NEEDLES 31G X 5 MM [facility] Continuous Blood Gluc [employer] Sales Representative (FreeStyle Carl[place] 2 [place]) device USE DIRECTED TO CHECK GLUCOSE FOUR TIMES DAILY FreeStyle Precision Addison Test test strip 1 each, Daily glipiZIDE XL (GLUCOTROL XL) 5 mg, Oral, Daily, Do not crush, chew, or split. insulin glargine (Lantus SoloStar) 100 UNIT/ML pen 40 units twice a day insulin lispro (HumaLOG) 100 UNIT/ML injection 10 units for at breakfast and lunch, and 22 units at dinner time, plus sliding scale. Max 78 units per daily lisinopril 20 mg, Oral, Daily pravastatin (PRAVACHOL) 80 mg, Oral, Daily PHYSICAL EXAM: Left Shoulder Exam Tenderness Left shoulder tenderness location: trace lateral shoulder pain with activity. Range of Motion Active abduction: 120 Forward flexion: 130 Muscle Strength Left shoulder normal muscle strength: 4-/5 abduction. Other Erythema: absent Scars: present Sensation: normal Pulse: present Vitals: There is no height or weight on file to calculate BMI. Tobacco Use: Low Risk (12/13/2024) Patient History Smoking Tobacco Use: Never Smokeless Tobacco Use: Never Passive Exposure: Not on file Alcohol Use: Not on file IMAGING: Procedures No orders of the defined types were placed in this encounter. ASSESSMENT: ICD-10-CM 1. Sprain of left shoulder, initial encounter S43.402A PLAN: Patient is 4 months s/p LT RCR, SAD, and biceps tenodesis. His ROM has improved since last appointment but still having weakness in left arm. I recommend we C9 for additional PT to work on strengthening. 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 Follow up in 6 weeks for RCK. If progressing plan RTW full duty. Recommend he use tylenol/ibuprofen for any breakthrough pain. Questions answered in laymen terms at the bedside. The diagnosis, home exercise plan and any ongoing restrictions/ recommendations reviewed. If unable to be reached in office, I recommend evaluation at nearest Emergency Room if any symptoms worsened or new symptoms develop for requiring urgent evaluation. ERNESTO Heath APRN documented in this encounter [facility] 12-07-2024 History of Present illness Narrative Images from the original note were not included. Derrell Avitia is a 54 y.o. male presents with chief complaint of Diabetes HPI: CGM: Free style carlitos 3: 7 days: 181-250 38%, >250 43%, 70-180 19% avg 234 GMI 8.9% 14 days 36%, 46%, 18% [id number] GMI 9.1% 30 days 28%, 59% and 13% [id number] GMI 9.7% 90 days 28%, 59%, and 13% avg 266 GMI9.7% Diabetes He presents for his follow-up diabetic visit. He has type 2 diabetes mellitus. His disease course has been worsening. There are no hypoglycemic associated symptoms. Pertinent negatives for hypoglycemia include no dizziness, nervousness/anxiousness, seizures or tremors. Associated symptoms include foot paresthesias and polydipsia. Pertinent negatives for diabetes include no chest pain, no fatigue, no polyuria, no visual change and no weight loss. There are no hypoglycemic complications. Symptoms are worsening. Diabetic complications include heart disease and peripheral neuropathy. Pertinent negatives for diabetic complications include no nephropathy. Risk factors for coronary artery disease include diabetes mellitus, dyslipidemia, hypertension, male sex and obesity. Current diabetic treatment includes oral agent (triple therapy) and insulin injections. He is compliant with treatment some of the time. An ALDEN inhibitor/angiotensin II receptor christina is being taken. He does not see a parer.Eye exam is current. Hypertension This is a chronic problem. The problem is unchanged. The problem is controlled. Pertinent negatives include no chest pain, peripheral edema or shortness of breath. There are no associated agents to hypertension. Risk factors for coronary artery disease include diabetes mellitus, dyslipidemia, male gender and obesity. Past treatments include ALDEN inhibitors. The current treatment provides significant improvement. SUBJECTIVE: MEDICATIONS: Current Outpatient Medications Medication Instructions amLODIPine (NORVASC) 10 mg, Oral, Daily B-D UF III MINI PEN NEEDLES 31G X 5 MM [facility] Continuous Blood Gluc [employer] Sales Representative (FreeStyle Carlitos 2 [place]) device USE DIRECTED TO CHECK GLUCOSE FOUR TIMES DAILY Continuous Glucose Sensor (FreeStyle Carlitos 3 Plus Sensor) misc 1 each, Does not apply, Daily FreeStyle Precision Addison Test test strip 1 each, Daily glipiZIDE XL (GLUCOTROL XL) 5 mg, Oral, Daily, Do not crush, chew, or split. insulin glargine (Lantus SoloStar) 100 UNIT/ML pen [...] Constitutional: Negative for activity change, appetite change, fatigue, unexpected weight change and weight loss. HENT: Negative for ear pain, nosebleeds, sneezing, [...] arthralgias. Skin: Negative for color change. Neurological: Negative for dizziness, tremors and seizures. Psychiatric/Behavioral: Negative for agitation, decreased concentration, hallucinations, self-injury and suicidal ideas. The patient is not nervous/anxious. Hematological: Negative for adenopathy. Does not bruise/bleed easily. Endocrine: Positive for polydipsia. Negative for cold intolerance, heat intolerance and polyuria. Allergic/Immunologic: Negative for environmental allergies and food allergies. PAST MEDICAL HISTORY Past Medical History: Diagnosis Date Anemia Arthritis 08/07/2023 At moderate risk for fall Chronic myeloid leukemia (HCC) Degenerative lumbar disc 08/07/2023 Diabetic neuropathy (HCC) Gastritis GERD (gastroesophageal reflux disease) Hyperlipidemia Hyponatremia Migraine headache Obesity (BMI 30-39.9) 05/06/2023 Pancreatitis ([facility]) Primary hypertension 05/06/2023 Oncology increase dose on amlodipine since [...] Right 12/09/2023 RT SHOULDER SCOPE- DR KILPATRICK SHOULDER SURGERY Left 08/16/2024 LT shoulder scope - Dr Kilpatrick SPINE SURGERY TONSILLECTOMY family history includes Alzheimer's disease in an other family member; Diabetes in his father, mother, and another family member; Heart disease in his mother; Hypertension in his father and mother; Stroke in an other family member; cva in an other family member. OBJECTIVE: Visit Vitals BP 128/72 (BP Location: Left arm, Patient Position: Sitting, BP Cuff Size: Large adult) Pulse 71 Temp 98.1 F (Temporal) Resp 18 Wt 263 lb 3.2 oz SpO2 97% BMI 37.77 kg/m Smoking Status Never BSA [...] Normal pulses. Heart sounds: Normal heart sounds. No murmur heard. Pulmonary: Effort: Pulmonary effort is normal. Breath sounds: Normal breath sounds. No wheezing or rhonchi. Abdominal: General: Bowel sounds are normal. Palpations: Abdomen is soft. Musculoskeletal: Cervical back: Neck supple. Right lower [...] ASSESSMENT AND PLAN: Follow up in about 6 weeks (around 01/18/2025) for Recheck. Problem List Items Addressed This Visit Essential (primary) hypertension Please check blood pressure daily and record DASH diet Limit caffeine Take medication as directed Contact office if chest pain, pressure, dizziness, shortness of breath, swelling legs Recommend slow position changes Current meds: amlodipine and lisinopril Relevant Medications amLODIPine (Norvasc) 10 MG tablet lisinopril 20 MG tablet Other Relevant Orders Microalbumin / creatinine, urine ratio Type 2 diabetes mellitus with hyperglycemia, with long-term current use of insulin ([facility]) Check blood sugars daily, notify if <70 [...] and simple sugars. Current meds: jardiance, insulin, alden, statin A1c: 11.4% 12/06/24, 8.5% on 06/16/24, had been having difficulty getting meds, in that 90 day period, however the previous A1c was 10.5% Out of meds: 2-3 months Restarted meds 30 days ago Difficulty affording meds and work schedule sometimes cannot take TID bolus Will increase basal to 40 units BID and cont bolus Fu in 6 weeks Relevant Medications insulin lispro (HumaLOG) 100 UNIT/ML injection insulin glargine (Lantus SoloStar) 100 UNIT/ML pen Other Relevant Orders POCT glycosylated hemoglobin (Hb A1C) docked device (Completed) Microalbumin / creatinine, urine ratio Hyperlipidemia Relevant Medications pravastatin (Pravachol) 80 MG tablet Screening for prostate cancer Relevant Orders PSA Morbid (severe) obesity due to excess calories ([facility]) Discussed with patient their BMI (actual, verses recommended). We have also discussed lifestyle modifications: attempts to perform physical activity as chronic conditions allow, also to monitor dietary intake: increasing protein/fruits/veggies and lowering carb intake (unless contraindicated). Limit sodas, juices, and sugary drinks. Type 2 diabetes mellitus with diabetic polyneuropathy (HCC) - Primary Does not taking any medications Recommend freq foot checks, proper fitting footwear Goal for adequate glycemic control Other Visit Diagnoses Primary hypertension Relevant Medications amLODIPine (Norvasc) 10 MG tablet lisinopril 20 MG tablet Associated Problem(s): Morbid (severe) obesity due to excess calories ([facility]) Discussed with patient their BMI (actual, verses recommended). We have also discussed lifestyle modifications: attempts to perform physical activity as chronic conditions allow, also to monitor dietary intake: increasing protein/fruits/veggies and lowering carb intake (unless contraindicated). Limit sodas, juices, and sugary drinks. Associated Problem(s): Type 2 diabetes mellitus with hyperglycemia, with long-term current use of insulin ([facility]) Check blood sugars daily, notify if <70 [...] and simple sugars. Current meds: jardiance, insulin, alden, statin A1c: 11.4% 12/06/24, 8.5% on 06/16/24, had been having difficulty getting meds, in that 90 day period, however the previous A1c was 10.5% Out of meds: 2-3 months Restarted meds 30 days ago Difficulty affording meds and work schedule sometimes cannot take TID bolus Will increase basal to 40 units BID and cont bolus Fu in 6 weeks Associated Problem(s): Essential (primary) hypertension Please check blood pressure daily and record DASH diet Limit caffeine Take medication as directed Contact office if chest pain, pressure, dizziness, shortness of breath, swelling legs Recommend slow position changes Current meds: amlodipine and lisinopril Associated Problem(s): Type 2 diabetes mellitus with diabetic polyneuropathy (HCC) Does not taking any medications Recommend freq [...] not use PAP documented in this encounter [facility] 12-07-2024 Instructions Rolf Chung NP - 12/07/2024 3:20 PM EDT Lantus: 40 units twice a day Short acting/meal time insulin: 10units breakfast, 10 units lunch, and 22 units dinner documented in this encounter [facility] 11-18-2024 History of Present illness Narrative Images from the original note were not included. Physical Therapy Physical Therapy Treatment Visit Patient Name: Derrell Avitia Today's Date: 11/18/2024 Encounter Diagnoses Name Primary? Tear of left supraspinatus tendon Yes Left bicipital tenosynovitis Sprain of left shoulder, unspecified shoulder sprain type, initial encounter Visit number: on C9 Time in: 3:00 pm Time out: 3:55 pm Supervised time: 40 min Total time: 55 min Subjective Derrell Avitia 54 y.o. male presents to physical therapy w/ chief c/o L shoulder/arm pain. Mechanism of Onset: trip/fall 05/19/24 a work, SX 08/16/24 Current deficits: pain, weakness, decreased ROM/flexibility Pain: pt denies pain today, rasing arm overhead slowly getting better. 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 Objective AROM standing flexion up to 115, abd to 120 after shannon warm up. Treatment Interventions Manual Therapy:x 10 min PROM, stretching Therapeutic Exercise: x 30 min sup, 33 min total per HEBERT grid, ROM/flexibility, strength as appropriate. Modalities: CP x 10min Assessment/Plan L shoulder pain, decreased ROM, weakness causing increased difficulty with ADLs/self care, decreased QOL s/p RCR, SAD, biceps tenodesis 08/16/24 following trip/fall injury at work 05/19/24 Pt demos good tolerance to strength progression and increased reps today. Improved tolerance to resisted ER with band. PROM very min restricted abd and ER, flex WNL. Pt is visits on C9. Still having difficulty with AROM overhead in standing and fatigues quickly so more PT could be justified vs HEP. Issued complete HEP with bands and AROM both standing and laying down to help bridge gap, min to mod limited standing, near normal limits supine and Sling. Pt placed on hold with HEP in place, DC vs continue pending /RAZIA and pending new C9. documented in this encounter [facility] 11-08-2024 History of Present illness Narrative Images from the original note were not included. HISTORY OF PRESENT ILLNESS: POST OP PT Derrell Avitia is an 54 y.o. @ male. EST [facility] PT S/P LT SHOULDER SCOPE (RCR, SAD, BICEPS TENODESIS) 08/16/24 (12WKS) @ [facility].- S/P PT AT [facility]; INCREASE ROM/STRENGTH PHYSICAL THERAPY @ [facility] NOTES MINIMAL DISCOMFORT- SOME STIFFNESS/SORENESS IN THE AM- SYMPTOMS IMPROVE THE DAY GOES ON- NO PAIN MEDS CONTINUES WORKING WITH RESTRICTIONS; NO USE OF LT UE REVIEW OF SYSTEMS: General: Denies fever, fatigue or weight loss Lungs: Denies SOB Cardio: Denies chest pain GI: Denies indigestion or abdominal pain Neuro: Denies numbness or tingling, denies new onset paralysis Musculoskeletal: ( see note) PHYSICAL EXAM: Left Shoulder Exam Tenderness Left shoulder tenderness location: expected post op soreness. Range of Motion Active abduction: 100 Forward flexion: 110 Muscle Strength Left shoulder normal muscle strength: 4-/5. Other Sensation: normal Pulse: present Physical Exam Results Procedures No orders of the defined types were placed in this encounter. ASSESSMENT: ICD-10-CM 1. Sprain of left shoulder, initial encounter S43.402A 2. Tear of left supraspinatus tendon M75.102 PLAN: Assessment & Plan Patient is 12 weeks s/p Left shoulder arthroscopy. His ROM and strength are improving but still decreased. I recommend he continue working with PT on ROM but may start gentle strengthening. 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 He will follow up in 4-6 weeks for RCK. States he needs to be able to lift 30lb to return to original job Questions answered in laymen terms at the bedside. The diagnosis, home exercise plan and any ongoing restrictions/ recommendations reviewed. If unable to be reached in office, I recommend evaluation at nearest Emergency Room if any symptoms worsened or new symptoms develop for requiring urgent evaluation. JORGE Heath APRNC documented in this encounter [facility] 10-22-2024 History of Present illness Narrative Images from the original note were not included. Physical Therapy Physical Therapy Treatment Visit Patient Name: Derrell Avitia Today's Date: 10/22/2024 Encounter Diagnoses Name Primary? Tear of left supraspinatus tendon Yes Left bicipital tenosynovitis Sprain of left shoulder, unspecified shoulder sprain type, initial encounter Visit number: 17 Time in: 10:12 am Time out: 11:12 am Supervised time: 42 min Total time: 60 min Subjective Derrell Avitia 54 y.o. male presents to physical therapy w/ chief c/o L shoulder/arm pain. 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 Objective Enters in sling and abd pad positioned correctly. L elbow, forearm, wrist hand AROM wnl and at least 3/5 MMT (not formally tested) L Shoulder PROM: flex to 80, abd to 70, ER to 10, IR to 30, ext to 0 pain/guarding limiting all. L shoulder AROM and strength n/a 2nd to post-op status and PROM only per protocol at this time. (At IE) Treatment Interventions Manual Therapy:x 10 min PROM, stretching, fair to good tolerance. Therapeutic Exercise: x 32 min sup, 40 min total per HEBERT grid, ROM/flexibility, strength as appropriate. Flex stretch done at finger ladder also added abd stretch at ladder. Also added AROM flex out of bent position to aid in strength/AROM recovery. Demo and verbal cues for correct technique tends to use a lot of compensation including throwing arm up onto finger ladder instead of straight arm AROM then walking when advised to reach, walk and slide downs slowly. Goes into scap instead of true flexion at times. Modalities: CP x 10min Assessment/Plan L shoulder pain, decreased ROM, weakness causing increased difficulty with ADLs/self care, decreased QOL s/p RCR, SAD, biceps tenodesis 08/16/24 following trip/fall injury at work 05/19/24 Pt still struggling with AROM elevation. PROM is min restricted in flex, abd, ER with progress noted last few sessions. Continue progression as able documented in this encounter [facility] 10-21-2024 Miscellaneous Notes Pt seen in office today by RDIraida and genetic testing ordered. Order sheet and all perts emailed to [facility]. Order will be scanned to chart under media. documented in this encounter [facility] 10-21-2024 Telephone encounter Note Pt seen in office today by RDIraida and genetic testing ordered. Order sheet and all perts emailed to [facility]. Order will be scanned to chart under media. [facility] 10-21-2024 History of Present illness Narrative Derrell Avitia Jr. Date of visit: 10/21/2024 Date of : 1970 Age: 54 y.o. [...] mouth in the morning.) 90 tablet 3 insulin glargine (LANTUS, BASAGLAR) 100 unit/mL (3 [...] Med Name: trial chemo drug, unknown name [id number] pravastatin (PRAVACHOL) 40 mg tablet Take 1 tablet (40 mg total) by mouth in the morning. No current facility-administered medications for this visit. Chief Complaint Patient presents with Follow-up HCM Clinic - 14 mo f/u - l/s RDG - exercise stress 07/06/19 - echo 04/16/23 - cMRI 08/08/23 - holter 07/01/23 - ekg 03/10/23 - sched w/pt History of Present Illness Everardo is here for follow-up. He was a gentleman who is undergoing treatment for CML. He was saw him because of an abnormal echo that was supported in [place]. At the time I would not have his images. He was sent him for a cardiac MRI. The cardiac MRI did not look like striking LVH/increased wall thickness. However, he comes back to clinic today and had a follow-up echocardiogram which he has been getting routinely in [place]. He looks on his echo to have clear asymmetric septal hypertrophy. On the more recent echo, septum looks at least 18 to perhaps 20 mm. There was no LV outflow track obstruction. 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 He was going to go through a surgery for his rotator cuff. He was just went through general anesthesia did well with that. He was treated for hypertension. The inferolateral wall looks normal wall thickness. He was not had any dizziness, lightheadedness, presyncope or syncope. No palpitations. Past Medical History: Diagnosis Date CML (chronic myelocytic leukemia) (CMS-HCC) Diabetes mellitus type 2, controlled (CMS-HCC) Hyperlipidemia Hypertension Rash Sleep apnea cpap Visual [...] on file Food Insecurity: No Food Insecurity (10/21/2024) Hunger Screening Food Insecurity - Worry: Never True Food Insecurity - Inability: Never True Transportation Needs: Not on file Physical Activity: Not on file Stress: Not on file Social Connections: Not on file Interpersonal Safety: Unknown (07/31/2023) Received from [facility] Fear of Current or Ex-Partner: Not on file Emotionally Abused: Not on file Physically Abused: Not on file Sexually Abused: Not on file Physically or Sexually Abused: Not on file Housing Instability: Not on file Review of Systems Review of Systems Constitutional: Positive for malaise/fatigue. HENT: Negative. Eyes: Negative. Cardiovascular: Negative. Respiratory: Positive for cough. Endocrine: Negative. Hematologic/Lymphatic: Negative. Skin: Negative. Musculoskeletal: Negative. Gastrointestinal: Negative. Genitourinary: Negative. Neurological: Positive for numbness. Psychiatric/Behavioral: Negative. Allergic/Immunologic: Negative. Vascular: Negative. CARDIOVASCULAR: Please review HPI. Physical Examination [...] mood, memory and judgement. VITAL SIGNS: BP 142/78 Pulse 78 Ht 177.8 cm (5' 10 ) Wt 116.1 kg (256 lb) SpO2 95% BMI 36.73 kg/m No orders of the defined types were placed in this encounter. Medications Discontinued During This Encounter Medication Reason Seat 14A CARLITOS 2 SENSOR kit sod sulf-pot chloride-mag sulf 1.479-0.188- 0.225 gram tablet IMPRESSIONS/PLAN 1. Primary hypertension - POCT EKG 2. Cardiomyopathy, hypertrophic (CMS-HCC) Possible/probable hypertrophic cardiomyopathy LVH/REINA with septal hypertrophy and dynamic LVOT on screening echos for CML trial drug. Reported septal thickness of 20 mm on [facility] echocardiogram and on review of echo today from 06/2024, this does appear consistent with the read. Cardiac MRI done through [facility] did not show substantial LVH, however. Looking at the echo, this looks more convincing for hypertrophic cardiomyopathy. No recent LV outflow track obstruction HTN Dilated aorta really focally at the sinuses of Valsalva, 43 mm at 1 point, remainder of aorta does not look significantly dilated on MRI. However, there is focal dilation of the sinuses of Valsalva which measure 42 mm on 06/2024 echocardiogram on my review. Ascending aorta appears normal in size. Syncopal episode 4 years ago Unremarkable Holter monitor 06/2023 Preoperative assessment EKG today NSR Looking at the [facility] echo, I am much more suspicious now that he indeed does have potential hypertrophic cardiomyopathy has a septal wall thickness looks clearly abnormal. I do not have a great explanation why this has not easily appreciable on the MRI. He had did have some scattered LGE but not typical pattern of HCM. At this point, he was be low risk for sudden cardiac regardless with no high-risk features. We will intermittently to screen him with Holter. His aorta will intermittently need screened. Recommend genetic testing at this point No symptoms have LV outflow track obstruction and did well with anesthesia so I do not see a need to make changes to his antihypertensives for the time being. This may be necessary moving forward. He was certainly has propensity for LV outflow track obstruction. In the event he gets hypotensive with anesthesia, I would aggressively hydrate, avoid ionotropes and use Addison-Synephrine if necessary has a pressor. Overall, still low risk for surgery We will have him follow up with me in [facility] HCM clinic I would plan for intermittent echoes and Holter monitoring as well as consideration of a repeat MRI down the road. He was continuing to get echoes done at [place] as part of his CML treatment. TODAYS ORDERS Orders Placed This Encounter Procedures POCT EKG FOLLOW UP Return in about 6 months (around 04/23/2025) for HCM visit RDG 30 min. PCP: FANNY RAMÍREZ Referring Physician: FANNY Ramírez [facility] [place] [address] documented in this encounter [facility] 10-11-2024 History of Present illness Narrative Images from the original note were not included. Physical Therapy Physical Therapy Treatment Visit Patient Name: Derrell Avitia Today's Date: 10/11/2024 Encounter Diagnoses Name Primary? Tear of left supraspinatus tendon Yes Left bicipital tenosynovitis Sprain of left shoulder, unspecified shoulder sprain type, initial encounter Visit number: 12 Time in: 8:38 am Time out: 9:33 am Supervised time: 39 min Total time: 55 min Subjective Derrell Avitia 54 y.o. male presents to physical therapy w/ chief c/o L shoulder/arm pain. 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 Objective Enters in sling and abd pad positioned correctly. L elbow, forearm, wrist hand AROM wnl and at least 3/5 MMT (not formally tested) L Shoulder PROM: flex to 80, abd to 70, ER to 10, IR to 30, ext to 0 pain/guarding limiting all. L shoulder AROM and strength n/a 2nd to post-op status and PROM only per protocol at this time. (At [facility]) Treatment Interventions Manual Therapy:x 12 min PROM, stretching, fair to good tolerance. Min restricted scaption, IR/ER, mod with true flex, abd with pain response with all at end range. Therapeutic Exercise: x 28 min sup, 34 min total per HEBERT grid, ROM/flexibility, strength as appropriate. 3 min on pulleys advised to work all planes with some holds for improved ROM, also added UBE 1 min FW and BW no resistance no issues. Added abd to wall walks and AROM press and flex supine. Modalities: CP x 10min Assessment/Plan L shoulder pain, decreased ROM, weakness causing increased difficulty with ADLs/self care, decreased QOL s/p RCR, SAD, biceps tenodesis 08/16/24 following trip/fall injury at work 05/19/24 Pt still struggling with AROM elevation, unable to get to 90 standing after pulleys and UBE. Added some reps wall walk and abd, added some AROM press and flex supine to help get AROM going. Also advised to use muscles as much as possible with AA-work aiding as little as needed with wall vs other arm. Still has restriction in PROM with pain that is not helping getting AROM going so advised on importance of continued stretching via table/counter/pulleys as well. Continue as tolerated documented in this encounter [facility] 09-29-2024 History of Present illness Narrative CRC 1 Documentation IRB#: [id number], [facility]# [id number], Study Title: A phase 1b study of the pharmacokinetics, safety and efficacy of orally administered [id number] in subjects with refractory chronic myeloid leukemia (CML) and PH+ acute lymphoblastic leukemia (PH+ ALL) Informed Consent signed on 06/19/2020, prior to any study related procedures being performed that are not SOC. Pt Study #: [id number] Treatment Arm: CML CP and AP Patient presents for: Cycle 55 Day 1 The following research tasks have been completed per protocol: EKGs (Triplicate): Yes Given to RN/LARA Tuttle for review. Tarah Harrington, Research Coordinator documented in this encounter [facility] 09-29-2024 History of Present illness Narrative All documentation from previous visit was copied and pasted, documentation has been reviewed and edited as necessary for today's visit. [facility] CLINICAL NOTE PATIENT NAME: Derrell Avitia [facility] NO.: [id number] DATE OF SERVICE: 09/29/2024 Reason for visit: Follow up of CML on clinical trial, ACTG 1920 Diagnosis: 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 (imatinib, dasatinib, nilotinib, bosutinib and ponatinib) Current Treatment - On a clinical trial - ACTG 1920 -041 Title: A phase 1b study of the pharmacokinetics, safety and efficacy of orally administered [id number] in subjects with refractory chronic myeloid leukemia (CML). Day 1 was 06/19/2020. Cycle 5 scheduled to start on 10/13/2020 was delayed to elevated lipase levels. Today is day 1 of cycle 55. He is being dosed at 30 mg [...] log reduction) 03/17/2024 - 0.1818% 06/16/2024 - 0.2795% 09/15/2024: 0.187% Interval History - 09/08/2024: Troponin elevated associated with jaw pain> in the ED, trended > flat troponin 09/15/2024: waiting on the troponin result so that we can start the study drug. 09/29/2024: Troponin improved. Will start study drug today. Patient presents today with his to clinic prior to re-starting the study drug. He denies any pain. He did endorse a feeling of upper chest pain that occurs when he is running to the bathroom to urinate at work. This resolves after urination. It does not radiate. He does not experience this sensation at rest. Troponins have improved & his EKG/Echo are stable. We will continue to monitor this symptom & af it worsens or occurs at rest he is to reach out to us. He will also reach out to his PCP about his frequency and urgency of urination. He denies fevers/ SOB/ cough/ rash. Impression: This is a 53 year-old male [...] pharmacokinetics, safety and efficacy of orally administered [id number] in subjects with refractory chronic myeloid leukemia [...] same [place] [address], [place] [address], monocytosis (5700), 6700 lymphocytes, 500 basophils and thrombocytopenia with platelets at 046262. Metaphase cytogenetics showed presence of t(9;22) in [...] [id number] Randomized, Open-label, Phase 2 [...] pharmacokinetics, safety and efficacy of orally administered [id number] in subjects with refractory chronic myeloid leukemia [...] and 03/17/2024 shows he remains in [facility]. - Troponin elevated but flat 09/08/2024 Review of systems: Constitutional: No fever, anorexia or malaise. + Chronic stable fatigue (rates it as 3-4/10 with 10 being the worst). Eyes: No change in vision, blurriness, diplopia, [...] motor strength. Psychiatric: Memory, short term & director long term care intact; no disturbance in sleep pattern and [...] December of 2023 Current medication: Reviewed from [employer] and integrated in assessment and plan. Social History: He is . 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 He does not smoke cigarettes and has not used any illicit drugs. He drinks alcoholic beverages occasionally. Family History: Father has CAD and had cardiac surgery, he also has DM. Still living Mother has DM. He has one brother is doing well. He has 2 children, both are doing well. He denies any prior exposure to toxic chemicals, radiation therapy, chemotherapy. PAST MEDICAL HISTORY PAST MEDICAL HISTORY Diagnosis Date CML (chronic myelocytic leukemia) (HCC) Hypertension PAST SURGICAL HISTORY PAST SURGICAL HISTORY Procedure Laterality Date ANES OPEN/SURG ARTHROSCOPIC PROC KNEE JOINT NOS right knee BACK SURGERY HX L4 and L5 infusion CHOLECYSTECTOMY TONSILLECTOMY HX ALLERGIES: Opioids - Morphine Analogues FAMILY HISTORY No family history on file. SOCIAL HISTORY SOCIAL HISTORY Social History Tobacco Use Smoking status: Never Smokeless tobacco: Never Vaping Use Vaping status: Never Used Substance Use Topics Alcohol use: Yes Comment: socially Drug use: No PHYSICAL EXAM: BP (P) 136/60 Pulse 78 Temp 36.4 C (97.5 F) (Oral) Resp 18 Ht 177.8 cm (5' 10 ) Wt 117.9 kg (259 lb 14.4 oz) SpO2 97% BMI 37.29 kg/m BSA = Body surface area is 2.41 meters squared. Constitutional: AAOx3, No acute distress Eyes: Non-icteric, PERRLA Ears, nose, mouth and throat: No mucositis, no thrush, normal dentition Lymphatics: No cervical or supraclavicular lymphadenopathy Respiratory: lungs are clear bilaterally, good breathing efforts, no wheezing. Cardiovascular: regular heart rate, regular rhythm, no murmurs. Gastrointestinal: Soft. Normal bowel sounds. No evidence of ascites. No organomegaly. Non tender Musculoskeletal: normal gait. Extremities: No edema in the lower extremities Skin: No rash, no ulceration, no erythema Psychological: appropriate mood and behavior LABS: WBC (k/uL) Date Value 09/15/2024 8.58 09/08/2024 9.76 09/08/2024 9.30 06/16/2024 10.92 03/17/2024 10.51 12/24/2023 10.62 10/01/2023 10.65 07/09/2023 11.77 04/18/2023 12.75 04/16/2023 11.95 06/11/2021 11.01 03/13/2021 9.07 12/22/2020 8.75 11/23/2020 10.01 10/27/2020 5.12 10/20/2020 5.15 10/13/2020 7.85 09/15/2020 9.39 09/01/2020 10.53 08/14/2020 5.96 Abs Neut (ANC) (k/uL) Date Value 06/11/2021 5.99 03/13/2021 5.08 12/22/2020 5.07 11/23/2020 6.14 10/27/2020 2.61 10/20/2020 2.70 10/13/2020 4.28 09/15/2020 5.31 09/01/2020 6.17 08/14/2020 3.14 Abs Neut (k/uL) Date Value 09/15/2024 5.48 09/08/2024 5.78 06/16/2024 7.39 03/17/2024 6.35 12/24/2023 6.26 10/01/2023 6.81 07/09/2023 7.66 04/18/2023 7.89 04/16/2023 8.06 01/22/2023 6.14 Hemoglobin (g/dL) Date Value 09/15/2024 15.0 09/08/2024 15.8 09/08/2024 14.6 06/16/2024 15.7 03/17/2024 16.6 12/24/2023 14.4 10/01/2023 15.5 07/09/2023 16.0 04/18/2023 16.0 04/16/2023 16.9 06/11/2021 17.0 03/13/2021 14.7 12/22/2020 14.3 11/23/2020 15.8 10/27/2020 13.4 10/20/2020 13.7 10/13/2020 16.3 09/15/2020 14.9 09/01/2020 15.0 08/14/2020 14.7 Platelet Count (k/uL) Date Value 09/15/2024 296 09/08/2024 243 09/08/2024 278 06/16/2024 308 03/17/2024 283 12/24/2023 325 10/01/2023 271 07/09/2023 272 04/18/2023 275 04/16/2023 297 06/11/2021 275 03/13/2021 249 12/22/2020 219 11/23/2020 256 10/27/2020 219 10/20/2020 219 10/13/2020 272 09/15/2020 206 09/01/2020 278 08/14/2020 386 Glucose (mg/dL) Date Value 09/15/2024 195 09/08/2024 275 09/08/2024 323 06/16/2024 217 04/06/2024 224 03/17/2024 143 12/24/2023 221 10/01/2023 131 07/09/2023 108 04/18/2023 126 06/11/2021 173 03/13/2021 159 12/22/2020 231 11/23/2020 270 10/27/2020 207 10/20/2020 266 10/13/2020 360 09/15/2020 221 09/01/2020 280 08/14/2020 239 Creatinine (mg/dL) Date Value 09/15/2024 0.46 09/08/2024 0.45 09/08/2024 0.55 06/16/2024 0.54 04/06/2024 0.73 03/17/2024 0.62 12/24/2023 0.57 10/01/2023 0.68 07/09/2023 0.63 04/18/2023 0.72 06/11/2021 0.71 03/13/2021 0.60 12/22/2020 0.60 11/23/2020 0.69 10/27/2020 0.56 10/20/2020 0.54 10/13/2020 0.61 09/15/2020 0.59 09/01/2020 0.59 08/14/2020 0.64 Calcium (mg/dL) Date Value 06/11/2021 9.9 03/13/2021 9.5 12/22/2020 9.2 11/23/2020 9.7 10/27/2020 9.1 10/20/2020 9.0 10/13/2020 9.8 09/15/2020 9.1 09/01/2020 9.0 08/14/2020 9.0 Calcium, Total (mg/dL) Date Value 09/15/2024 9.4 09/08/2024 9.4 09/08/2024 9.6 06/16/2024 9.8 04/06/2024 10.0 03/17/2024 9.8 12/24/2023 9.6 10/01/2023 9.8 07/09/2023 9.6 04/18/2023 10.0 No results found for: MPROTCONCENT , MSPK24 [place] Free, Serum (mg/L) Date Value 03/23/2019 30.3 Lambda Free, Serum (mg/L) Date Value 03/23/2019 20.8 MPA IgG, Serum (mg/dL) Date Value 03/23/2019 1,990 MPA IgA, Serum (mg/dL) Date Value 03/23/2019 398 MPA IgM, Serum (mg/dL) Date Value 03/23/2019 79 No results found for: AKANKSHA Castro PA-C Hematology & Oncology Pager: [phone] Additional intake questions: Has the patient had fever, nausea, vomiting, diarrhea, constipation, fatigue for > 1 week? Yes, fatigue and Provider Notified Does the patient have a decreased appetite? No Does patient want to see a Computer Hardware Designer? No (yes to any of above refer patient to schedulers for dietitian appointment) ) Does patient have any new or increased numbness or tingling of extremities? No Is patient interested in fertility information? NA Does patient need any prescription refills? No Does patient have an advanced directive in place? No Electronically Signed By: Brandyn Valiente LPN documented in this encounter [facility] 09-29-2024 History of Present illness Narrative Summary: ACTG 192 / 20-998 cycle 55 day 1 ACTG 1919 A phase 1b study of the pharmacokinetics, safety and efficacy of orally administered [id number] in subjects with refractory chronic myeloid leukemia [...] participate on the study by the sponsor 09/29/2024 Cycle 55 day 1 Subject #: [id number] Patient met with research team, pleasant and engaged in conversation. Patient reports that he has discomfort in the middle of his chest when he gets the urgency to urinate. Then it subsides after he urinates. Patient will follow up with his PCP. Lucina reviewed all labs and AE's with attributions. ECHO LVEF: 58% BMBx: pending results from 09/10/2024 EKG: QTcF 418 ms, 412 ms, 435 ms PE: ROSIE Verdugo ECO VS: 09/29/24 Weight 116.8 kg (257 lb 8 oz) BSA 0 BMI 0 Temp 36.3 C (97.3 F) Pulse 62 Resp 18 BP 129/72 SpO2 99 % PAST MEDICAL HISTORY Diagnosis Date Status CML (chronic myelocytic leukemia) ([facility]) 12/2011 Active chronic phase not controlled Hypertension [...] L4 and L5 infusion Prior to 03/2012 [place] ANESTH,KNEE JOINT; NOS right knee Prior to [...] 12/2014 -- 03/2016 Bosutinib 03/2016 - 05/02/2017 [facility] 2915 15-875 trial of Ponatinib 05/21/2017 - [...] %IS .52 03/17/2024 BCR/ABL1 P210 %IS .18 06/16/2024 BCR/ABL1 P210 %IS .27 Medications: NKA Medication Dose Start Date Stop [...] once a day 05/13/2022 05/22/2023 Blood pressure Ava 5/325 mg 1 tab PO x 1 [...] mg orally once a day 04/17/202311/2023 Diabetes Percocet 5/325 mg 08/16/2024 08/23/2024 Post op surgical pain of left shoulder Toxicities: CTCAE V. 5 SCREENING all predate [...] 06/12/2020 Aspartate aminotransferase increased Grade 1 UNRELATED 53 Start date: 06/12/2020. Resolved: ongoing. Drugs used to treat: none. Outcome: Still present. Hyperglycemia Grade 2 UNRELATED Start date: 06/05/2020. Resolved: ongoing. Drugs used to treat:yes. Outcome: Still present. Hypertriglyceridemia Grade 2 UNRELATED Start date: 06/12/2020. Resolved: ongoing. Drugs used to treat: none. Outcome: Still present. Alkaline phosphatase Grade 1 UNRELATED 136 (prior to drug)Start date: 06/19/2020. Resolved: ongoing. Drugs used to treat:no Outcome:present intermittently. Hyponatremia Grade 1 UNRELATED (prior to drug) Start date 06/19/2020 Resolved:ongoing.Drugs used to treat: no. Outcome: present intermittently CTCAE v.5 Fasting labs 09/29/2024 Hypertension Grade 1 Unrelated Start date 08/14/2020 [...] Drugs used to treat: ibuprofen Outcome: present Broken teeth Grade 1 Start date 08/06/2023 Resolved:ongoing. Drugs used to treat:yes. Outcome: still present. Alkaline phosphatase increased (347) Grade 2. Possibly Related (03/17/2024) Start date: 12/24/2023. Resolve date: ongoing. Drugs to treat: none. Outcome:present intermittently. Baseline abnormal value of 136 on 06/19/2020. Alanine aminotransferase increased Grade 1. Unrelated. Start date: 12/24/2023. Resolve date: ongoing. Drugs to treat: none. Outcome: still present Cardiac troponin T increased Grade 1 Possibly related Start date:09/08/2024 Resolve date: 09/22/2024 ongoing Drugs used to treat: no. Outcome:resolved Urinary urgency Grade 1. Unrelated. Start date: pt unknown Resolve date: ongoing. Drugs to treat: none. [...] Resolved:12/2023. Drugs used to treat:yes. Outcome: resolved. Hyponatremia Grade 1 Unrelated Start date 01/22/2023 Resolved:12/24/2023. Drugs used to treat:no. Outcome: resolved. Lipase Grade 1 Possibly related Start date:09/08/2024 Resolved: 09/15/2024 Drugs used to treat: no. Outcome:resolved Localized edema (left hand) Grade 1 Unrelated Start date:09/05/2024 Resolved: 09/12/2024 Drugs used to treat: no. Outcome:resolved Pain-left jaw Grade 1 Possibly related Start date:09/01/2024 Resolved: 09/12/2024 Drugs used to treat: no. Outcome:resolved Patients last dose of study drug was 09/06/2024 Patient dosed today at 12:15 p.m. Previously: Re-educated patient on how to complete the [...] Patient verbalized understanding of all information provided. 09/08/2024 Patient returned drug diary from previous visit completed. Patient returned: 3 bottles, 2 empty and 1 bottle with 54 tablets. The count is accurate. Patient was provided a predated drug diary for cycles 55, 56, 57. Patient was given drug: yes. 3 bottles of drug. 60 pills per bottle of 10 mg pills. To be dosed with 30 mg of HQP every other day. Lot# [id number] Patient presented today to participate on the trial ACTG 1920 / IRB 20-998. Patient to return in 3 months, appointment will be scheduled and [facility] Patient understands that he must call nurse [...] nurse's contact information and after hours fellows office automation clerk. Patient understands that this participation is voluntary and that he may withdraw at any time during the trial. Paula Tuttle RN,OCN documented in this encounter [facility] 09-27-2024 History of Present illness Narrative Images from the original note were not included. HISTORY OF PRESENT ILLNESS: POST OP PT Derrell Avitia is an 54 y.o. @ male. EST [facility] PT S/P LT SHOULDER SCOPE (RCR, SAD, BICEPS TENODESIS) 08/16/24 (6WKS) @ [facility].- S/P PT AT [facility] @ [facility] CONTINUES PT. WEARING ULTRA SLING. DENIES PAIN. NO PAIN MEDS. DENIES N/T. SOME SWELLING IN UPPER ARM. OCCAS POPPING, WITH EXERCISES. SLEEPING IN [place], DIFFICULTY SLEEPING. DENIES ISSUES WITH INCISIONS. OFF WORK REVIEW OF SYSTEMS: General: Denies fever, fatigue or weight loss Lungs: Denies SOB Cardio: Denies chest pain GI: Denies indigestion or abdominal pain Neuro: Denies numbness or tingling, denies new onset paralysis Musculoskeletal: ( see note) PHYSICAL EXAM: Left Shoulder Exam Tenderness The patient is experiencing no tenderness (compartments soft). Range of Motion Left shoulder active abduction: 45. Left shoulder forward flexion: 45. Muscle Strength Left shoulder normal muscle strength: Fires deltoid and rotator cuff, 3/5. Other Erythema: absent Scars: absent (portals well [...] infection or ascending lymphangitis to operative extremity. Physical Exam Results Procedures No orders of the defined types were placed in this encounter. ASSESSMENT: ICD-10-CM 1. Tear of left supraspinatus tendon M75.102 PLAN: Assessment & Plan Patient is 6 weeks s/p LT RCR. He is doing well with decreased pain. He is cleared to transition out of sling and start AROM with PT. He is allowed to return to work light duty with no use of the left arm on 10/04. He will follow up in 6 weeks for RCK. He will call with any worsening symptoms. Questions answered in laymen terms at the bedside. The diagnosis, home exercise plan and any ongoing restrictions/ recommendations reviewed. If unable to be reached in office, I recommend evaluation at nearest Emergency Room if any symptoms worsened or new symptoms develop for requiring urgent evaluation. Yaniv Hernandez APRN-EAR NOSE THROAT PHYSICIAN documented in this encounter [facility] 09-27-2024 History of Present illness Narrative Images from the original note were not included. Physical Therapy Physical Therapy Treatment Visit Patient Name: Derrell Avitia Today's Date: 09/27/2024 Encounter Diagnoses Name Primary? Tear of left supraspinatus tendon Yes Left bicipital tenosynovitis Sprain of left shoulder, unspecified shoulder sprain type, initial encounter Visit number: 7 Time in: 8:21 am Time out: 9:13 am Supervised time: 38 min Total time: 52 min Subjective Derrell Avitia 54 y.o. male presents to physical therapy w/ chief c/o L shoulder/arm pain. Mechanism of Onset: trip/fall 05/19/24 a work, SX 08/16/24 Current deficits: pain, weakness, decreased ROM/flexibility Pain: denies pain upon arrival, to follow-up with ortho today and get cleared for A/AA work, talked to ortho ATHLETIC COACH and ok with me progressing today pending response . 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 Objective Enters in sling and abd pad positioned correctly. L elbow, forearm, wrist hand AROM wnl and at least 3/5 MMT (not formally tested) L Shoulder PROM: flex to 80, abd to 70, ER to 10, IR to 30, ext to 0 pain/guarding limiting all. L shoulder AROM and strength n/a 2nd to post-op status and PROM only per protocol at this time. (At IE) Treatment Interventions Manual Therapy:x 12 min PROM, gentle stretching. Therapeutic Exercise: x 26 min sup, 30 total per HEBERT grid, ROM/flexibility, strength as appropriate, added UBE FW 1 min, ROWs/LAEs bent no wt, wall walks flex, AA cane press and flex supine and some AROM IR/ER pain free ROM. Modalities: CP x 10 min end of session with new HEBERT and waiting on ortho appt. Assessment/Plan L shoulder pain, decreased ROM, weakness causing increased difficulty with ADLs/self care, decreased QOL s/p RCR, SAD, biceps tenodesis 08/16/24 following trip/fall injury at work 05/19/24 Pt demos good tolerance to session overall, some difficulty with AA press, flex and wall walks but able to do 1 x 10 ea. PROM is min restricted in IR and mod with flex, abd and ER, Painful at end ranges but improving slowly. Issued new handout for HEP with bent ROWs/LAEs, AROM IR/ER, AA press and flex supine, also discussed wall walks for HEP. Some increased pain by end of session but relieved with CP use. Continue per protocol and tolerance. documented in this encounter [facility] 09-17-2024 History of Present illness Narrative Images from the original note were not included. Physical Therapy Physical Therapy Treatment Visit Patient Name: Derrell Avitia Today's Date: 09/17/2024 Encounter Diagnoses Name Primary? Tear of left supraspinatus tendon Yes Left bicipital tenosynovitis Sprain of left shoulder, unspecified shoulder sprain type, initial encounter Visit number: 4 Time in: 8:25 am Time out: 8:58 am Supervised time: 30 min Total time: 33 min Subjective Derrell Avitia 53 y.o. male presents to physical therapy w/ chief c/o L shoulder/arm pain. 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 Objective Enters in sling and abd pad positioned correctly. L elbow, forearm, wrist hand AROM wnl and at least 3/5 MMT (not formally tested) L Shoulder PROM: flex to 80, abd to 70, ER to 10, IR to 30, ext to 0 pain/guarding limiting all. L shoulder AROM and strength n/a 2nd to post-op status and PROM only per protocol at this time. Treatment Interventions Manual Therapy:x 15 min PROM, gentle stretching, joint mobs, STM to bicep region and incision site Therapeutic Exercise: x 15 min, 18 total 3 min on pulleys advsied to work all planes as able, per HEBERT grid, ROM/flexibility, strength as appropriate (PROM only at shoulder to start), added single arm LHB stretch advised to keep gentle pain no issues Modalities: declined ice Assessment/Plan L shoulder pain, decreased ROM, weakness causing increased difficulty with ADLs/self care, decreased QOL s/p RCR, SAD, biceps tenodesis 08/16/24 following trip/fall injury at work 05/19/24 Pt demos good tolerance to stretches today, repositioning for ER stretch required with good carryover. PROM is min restricted in IR and mod with flex, abd and ER. PROM improving, less guarding in tome. Continue per protocol and tolerance. DC abd pad after talking to ortho PA. documented in this encounter [facility] 09-15-2024 History of Present illness Narrative CRC 1 Documentation IRB#: [id number], [facility]# [id number], Study Title: A phase 1b study of the pharmacokinetics, safety and efficacy of orally administered [id number] in subjects with refractory chronic myeloid leukemia (CML) and PH+ acute lymphoblastic leukemia (PH+ ALL) Informed Consent signed on 06/19/2020, prior to any study related procedures being performed that are not SOC. Pt Study #: 016-002 Treatment Arm: CML CP and AP Patient presents for: Cycle 54 Day 28 The following research tasks have been completed per protocol: EKGs (Triplicate): Yes Given to RN/LARA Tuttle for review. Tarah Harrington, Research Coordinator documented in this encounter [facility] 09-15-2024 History of Present illness Narrative [facility] CLINICAL NOTE PATIENT NAME: Derrell Avitia [facility] NO.: [id number] DATE OF SERVICE: September 15, 2024 PATIENT NAME: Derrell Avitia [facility] NO: [id number] Date of service: 09/08/2024 Reason for visit: Follow up of CML on clinical trial, ACTG 1920 Diagnosis: 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 (imatinib, dasatinib, nilotinib, bosutinib and ponatinib) Current Treatment - On a clinical trial - ACT 1920 8 Title: A phase 1b study of the pharmacokinetics, safety and efficacy of orally administered [id number] in subjects with refractory chronic myeloid leukemia [...] log reduction) 03/17/2024 - 0.1818% 06/16/2024 - 0.2795% Interval History - 09/08/2024: Troponin elevated associated with jaw pain> in the ED, trended > flat troponin 09/15/2024: waiting on the troponin result so that we can start the study drug. Impression: This is a 53 year-old male with chronic phase CML who is here for follow up on clinical trial Recommendations: 1) Chronic Myeloid Leukemia (CML) in chronic phase with failure or intolerance to multiple TKI's (dasatinib, imatinib, nilotinib, bosutinib and ponatinib) - He started the CML clinical trial - ACT 1920 Title: A phase 1b study of the pharmacokinetics, safety and efficacy of orally administered [id number] in subjects with refractory chronic myeloid leukemia [...] same [place] [address], [place] [address], monocytosis (5700), 6700 lymphocytes, 500 basophils and thrombocytopenia with platelets at 502180. Metaphase cytogenetics showed presence of t(9;22) in [...] He was enrolled on a clinical trial, [facility] 2915 15-176 A Randomized, Open-label, Phase 2 Trial of [...] pharmacokinetics, safety and efficacy of orally administered [id number] in subjects with refractory chronic myeloid leukemia [...] and 03/17/2024 shows he remains in [facility]yR. - Troponin elevated but flat 09/08/2024 Review of systems: Constitutional: No fever, anorexia [...] motor strength. Psychiatric: Memory, short term & [facility] intact; no disturbance in sleep pattern and [...] December of 2023 Current medication: Reviewed from [employer] and integrated in assessment and plan. Social History: He is . 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 He does not smoke cigarettes and has not used any illicit drugs. He drinks alcoholic beverages occasionally. Family History: Father has CAD and had cardiac surgery, he also has DM. Still living Mother has DM. He has one brother is doing well. He has 2 children, both are doing well. He denies any prior exposure to toxic chemicals, radiation therapy, chemotherapy. PAST MEDICAL HISTORY Diagnosis Date CML (chronic myelocytic leukemia) (HCC) Hypertension PAST SURGICAL HISTORY Procedure Laterality Date ANES OPEN/SURG ARTHROSCOPIC PROC KNEE JOINT NOS right knee BACK SURGERY HX L4 and L5 infusion CHOLECYSTECTOMY TONSILLECTOMY HX ALLERGIES: Opioids - Morphine Analogues No family history on file. SOCIAL HISTORY Social History Tobacco Use Smoking status: Never Smokeless tobacco: Never Vaping Use Vaping status: Never Used Substance Use Topics Alcohol use: Yes Comment: socially Drug use: No PHYSICAL EXAM: BP (P) 136/60 Pulse 78 Temp 36.4 C (97.5 F) (Oral) Resp 18 Ht 177.8 cm (5' 10 ) Wt 117.9 kg (259 lb 14.4 oz) SpO2 97% BMI 37.29 kg/m BSA = Body surface area is 2.41 meters squared. Constitutional: AAOx3, No acute distress Eyes: Non-icteric, PERRLA Ears, nose, mouth and throat: No mucositis, no thrush, normal dentition Lymphatics: No cervical or supraclavicular lymphadenopathy Respiratory: lungs are clear bilaterally, good breathing efforts, no wheezing. Cardiovascular: regular heart rate, regular rhythm, no murmurs. Gastrointestinal: Soft. Normal bowel sounds. No evidence of ascites. No organomegaly. Non tender Musculoskeletal: normal gait. Extremities: No edema in the lower extremities Skin: No rash, no ulceration, no erythema Psychological: appropriate mood and behavior LABS: WBC (k/uL) Date Value 09/15/2024 8.58 09/08/2024 9.76 09/08/2024 9.30 06/16/2024 10.92 03/17/2024 10.51 12/24/2023 10.62 10/01/2023 10.65 07/09/2023 11.77 04/18/2023 12.75 04/16/2023 11.95 06/11/2021 11.01 03/13/2021 9.07 12/22/2020 8.75 11/23/2020 10.01 10/27/2020 5.12 10/20/2020 5.15 10/13/2020 7.85 09/15/2020 9.39 09/01/2020 10.53 08/14/2020 5.96 Abs Neut (ANC) (k/uL) Date Value 06/11/2021 5.99 03/13/2021 5.08 12/22/2020 5.07 11/23/2020 6.14 10/27/2020 2.61 10/20/2020 2.70 10/13/2020 4.28 09/15/2020 5.31 09/01/2020 6.17 08/14/2020 3.14 Abs Neut (k/uL) Date Value 09/15/2024 5.48 09/08/2024 5.78 06/16/2024 7.39 03/17/2024 6.35 12/24/2023 6.26 10/01/2023 6.81 07/09/2023 7.66 04/18/2023 7.89 04/16/2023 8.06 01/22/2023 6.14 Hemoglobin (g/dL) Date Value 09/15/2024 15.0 09/08/2024 15.8 09/08/2024 14.6 06/16/2024 15.7 03/17/2024 16.6 12/24/2023 14.4 10/01/2023 15.5 07/09/2023 16.0 04/18/2023 16.0 04/16/2023 16.9 06/11/2021 17.0 03/13/2021 14.7 12/22/2020 14.3 11/23/2020 15.8 10/27/2020 13.4 10/20/2020 13.7 10/13/2020 16.3 09/15/2020 14.9 09/01/2020 15.0 08/14/2020 14.7 Platelet Count (k/uL) Date Value 09/15/2024 296 09/08/2024 243 09/08/2024 278 06/16/2024 308 03/17/2024 283 12/24/2023 325 10/01/2023 271 07/09/2023 272 04/18/2023 275 04/16/2023 297 06/11/2021 275 03/13/2021 249 12/22/2020 219 11/23/2020 256 10/27/2020 219 10/20/2020 219 10/13/2020 272 09/15/2020 206 09/01/2020 278 08/14/2020 386 Glucose (mg/dL) Date Value 09/15/2024 195 09/08/2024 275 09/08/2024 323 06/16/2024 217 04/06/2024 224 03/17/2024 143 12/24/2023 221 10/01/2023 131 07/09/2023 108 04/18/2023 126 06/11/2021 173 03/13/2021 159 12/22/2020 231 11/23/2020 270 10/27/2020 207 10/20/2020 266 10/13/2020 360 09/15/2020 221 09/01/2020 280 08/14/2020 239 Creatinine (mg/dL) Date Value 09/15/2024 0.46 09/08/2024 0.45 09/08/2024 0.55 06/16/2024 0.54 04/06/2024 0.73 03/17/2024 0.62 12/24/2023 0.57 10/01/2023 0.68 07/09/2023 0.63 04/18/2023 0.72 06/11/2021 0.71 03/13/2021 0.60 12/22/2020 0.60 11/23/2020 0.69 10/27/2020 0.56 10/20/2020 0.54 10/13/2020 0.61 09/15/2020 0.59 09/01/2020 0.59 08/14/2020 0.64 Calcium (mg/dL) Date Value 06/11/2021 9.9 03/13/2021 9.5 12/22/2020 9.2 11/23/2020 9.7 10/27/2020 9.1 10/20/2020 9.0 10/13/2020 9.8 09/15/2020 9.1 09/01/2020 9.0 08/14/2020 9.0 Calcium, Total (mg/dL) Date Value 09/15/2024 9.4 09/08/2024 9.4 09/08/2024 9.6 06/16/2024 9.8 04/06/2024 10.0 03/17/2024 9.8 12/24/2023 9.6 10/01/2023 9.8 07/09/2023 9.6 04/18/2023 10.0 No results found for: MPROTCONCENT , MSPK24 [place] Free, Serum (mg/L) Date Value 03/23/2019 30.3 Lambda Free, Serum (mg/L) Date Value 03/23/2019 20.8 MPA IgG, Serum (mg/dL) Date Value 03/23/2019 1,990 MPA IgA, Serum (mg/dL) Date Value 03/23/2019 398 MPA IgM, Serum (mg/dL) Date Value 03/23/2019 79 No results found for: INTP Thank you for the courtesy of this consultation. Roberto Beckford MD (click to page) PGY-2 Internal Medicine [facility] September 15, 2024 11:01 AM I have personally examined the patient. Reviewed all the results and edited the above resident's note. I agree with the above plan of care. William Howell MD PhD MPH Associate Staff Hematologic Oncology and Blood Disorders Pager [phone] Date of service: 09/15/2024 I spent a total of 40 minutes on the date of the service which included preparing to see the patient, [id number] patient care, completing clinical documentation, obtaining and/or [...] No Does patient want to see a Computer Hardware Designer? No (yes to any of above refer patient to schedulers for dietitian appointment) ) Does patient have any new or increased numbness or tingling of extremities? No Is patient interested in fertility information? No Does patient need any prescription refills? No Does patient have an advanced directive in place? No, Patient referred to Social Work Electronically Signed By: Cristal Iglesias MA documented in this encounter [facility] 09-15-2024 History of Present illness Narrative Summary: [id number] / 20-998 cycle 54 day 34 ACTG 1920 20-998 A phase 1b study of the pharmacokinetics, safety and efficacy of orally administered [id number] in subjects with refractory chronic myeloid leukemia [...] participate on the study by the sponsor 09/15/2024 Cycle 54 day 34 Subject #: 016-002 Patient met with research team, pleasant and engaged in conversation. Patients High Sensitivity Troponin is 51 ng/dL. Dr. Howell explained to the patient that the drug will be restarted once the High Sensitivity Troponin is </= 0.04. Patient aware that he will need to get checked next week locally at [facility] location. Patient in agreement and verbalized understanding. Dr. Howell reviewed all labs and AE's with attributions. ECHO LVEF: pending BMBx: pending results from 09/10/2024 EK ms, 433 ms, 435 ms PE: Dr. Howell ECO VS: 09/15/24 Weight 117.9 kg (259 lb 14.4 oz) Height 177.8 cm (5' 10 ) BSA 2.41 BMI 37.29 Temp 36.4 C (97.5 F) Pulse 78 Resp 18 BP 136/60 SpO2 97 % PAST MEDICAL HISTORY Diagnosis Date Status [...] L4 and L5 infusion Prior to 03/2012 [place] ANESTH,KNEE JOINT; NOS right knee Prior to [...] 12/2014 -- 03/2016 Bosutinib 03/2016 - 05/02/2017 [facility] [id number] trial of Ponatinib 05/21/2017 - [...] %IS .52 03/17/2024 BCR/ABL1 P210 %IS .18 06/16/2024 BCR/ABL1 P210 %IS .27 Medications: NKA Medication Dose Start Date Stop [...] once a day 05/13/2022 05/22/2023 Blood pressure Ava 5/325 mg 1 tab PO x 1 [...] mg orally once a day 04/17/202311/2023 Diabetes Percocet 5/325 mg 08/16/2024 08/23/2024 Post op surgical pain of left shoulder Toxicities: CTCAE V. 5 SCREENING all predate [...] 06/12/2020 Aspartate aminotransferase increased Grade 1 UNRELATED 53 Start date: 06/12/2020. Resolved: ongoing. Drugs used to treat: none. Outcome: Still present. Hyperglycemia Grade 2 UNRELATED Start date: 06/05/2020. Resolved: ongoing. Drugs used to treat:yes. Outcome: Still present. Hypertriglyceridemia Grade 2 UNRELATED Start date: 06/12/2020. Resolved: ongoing. Drugs used to treat: none. Outcome: Still present. Alkaline phosphatase Grade 1 UNRELATED 136 (prior to drug)Start date: 06/19/2020. Resolved: ongoing. Drugs used to treat:no Outcome:present intermittently. Hyponatremia Grade 1 UNRELATED (prior to drug) Start date 06/19/2020 Resolved:ongoing.Drugs used to treat: no. Outcome: present intermittently CTCAE v.5 Fasting labs 09/15/2024: Hypertension Grade 1 Unrelated Start date 08/14/2020 [...] Drugs used to treat: ibuprofen Outcome: present Broken teeth Grade 1 Start date 08/06/2023 Resolved:ongoing. Drugs used to treat:yes. Outcome: still present. Alkaline phosphatase increased (347) Grade 2. Possibly Related (03/17/2024) Start date: 12/24/2023. Resolve date: ongoing. Drugs to treat: none. Outcome: still present. Baseline abnormal value of 136 on 06/19/2020. Alanine aminotransferase increased Grade 1. Unrelated. Start date: 12/24/2023. Resolve date: ongoing. Drugs to treat: none. Outcome: still present Lipase Grade 1 Possibly related Start date:09/08/2024 Resolved: 09/15/2024 Drugs used to treat: no. Outcome:resolved Localized edema (left hand) Grade 1 Unrelated Start date:09/05/2024 Resolved: 09/12/2024 Drugs used to treat: no. Outcome:resolved Pain-left jaw Grade 1 Possibly related Start date:09/01/2024 Resolved: 09/12/2024 Drugs used to treat: no. Outcome:resolved Cardiac troponin T increased Grade 1 Possibly related Start date:09/08/2024 Resolved: ongoing Drugs used to treat: no. Outcome:present Resolved AE's: Hypertriglyceridemia Grade 3 Unrelated(prior to [...] Resolved:12/2023. Drugs used to treat:yes. Outcome: resolved. Hyponatremia Grade 1 Unrelated Start date 01/22/2023 Resolved:12/24/2023. Drugs used to treat:no. Outcome: resolved. Patients last dose of study drug was 09/06/2024 Previously: Re-educated patient on how to complete the [...] Patient verbalized understanding of all information provided. 09/08/2024 Patient returned drug diary from previous visit completed. Patient returned: 3 bottles, 2 empty and 1 bottle with 54 tablets. The count is accurate. Patient aware next appointment will be determined after the troponin results are </=0.04. Patient presented today to participate on the [...] nurse's contact information and after hours fellows office automation clerk. Patient understands that this participation is voluntary and that he may withdraw at any time during the trial. Paula Tuttle RN,OCN documented in this encounter [facility] 09-10-2024 Hospital Discharge instructions Aramis Mccray MD - 09/10/2024 9:05 AM EDT After a Biopsy in the Imaging [place] What is a biopsy? A biopsy is a procedure where a needle is inserted into an organ, a lump, or another spot to take a small piece of tissue for testing. A biopsy may be performed on the liver, kidney, pancreas, bone, thyroid, or an enlarged lymph node.Ultrasound, CT scan, or MRI helps the doctor guide the needle to the right spot to take the tissue sample. What to expect: Certain sedation and pain medications may cause nausea and vomiting. You may feel sleepy or dizzy for several hours. You may have a brief period of amnesia (unable to remember what happened). If the area around the intravenous site on your arm is sore you can apply: An ice pack over it for 5 minutes twice a day the first 24 hours. A heating pack over for 5 minutes 4 times a day after 24 hours. The soreness should go away in a few days. The biopsy site may be black and blue. You may feel some soreness at the biopsy site. Driving: Do not drive a car, a responsible person must drive you home when you are discharged from the hospital. Do not take public transportation without a responsible adult to ride with you. You may drive the day after your procedure, unless instructed otherwise. Activity: Avoid strenuous activity and exercise, such as jogging, golfing, or playing tennis. Do not lift anything heavier than 10 pounds for 24 hours after the procedure. You may resume your normal activities 24 hours after your procedure, unless instructed otherwise. You may experience lightheadedness, dizziness, and sleepiness due to your anesthesia. Rest at home today; increase activity gradually. When you change position, move slowly to minimize any dizziness, nausea, or vomiting. It is recommended to have a responsible person with you the first few times you get up. You may not return to work or operate machinery or power tools for the rest of the day when you get home. Do not sign any important papers or makes important decisions for 24 hours. If possible, arrange care for dependent adults or children. Diet: You can return to your regular diet, progress as tolerated from light meal to normal diet. Do not drink alcoholic beverages of any kind, including beer or wine. Alcohol makes the effects of anesthesia and sedation stronger, and these will still be in your body. Bathing and showering guidelines: You may shower. DO NOT swim or soak in water for 24 hours after the procedure. Medications: Continue taking all of your prescribed medications after the procedure except bloodthinning or platelet-altering medications, unless instructed otherwise by your doctor. If you are taking any blood-thinning or platelet-altering medications, it is recommended that you not take these medications for 24 hours after your procedure. Do not take sleeping pills or any other psychotropic (nerve) medications for the rest of the day. These medications enhance the effects of anesthesia and sedation that will still be present in your body. You may take acetaminophen (Tylenol ) as needed to relieve discomfort unless allergic or told not to take Tylenol. Follow the directions on the package labeling and never exceed the recommended dose. Site Care Keep the bandage that is over the biopsy site clean and dry. You may remove the bandage after 24 hours. Clean the biopsy site with mild soap and water. Call your doctor if you: See signs of infection, such as redness, drainage, foul odor, or swelling at the biopsy site. Have a temperature higher than 100.4? F or 38? C. Develop shaking chills. Have pain that is not relieved by your usual pain medications. Results: Your biopsy results will be sent to the physician who ordered this procedure. The results are usually available within approximately 3 to 5 business days. Additional Information: None documented in this encounter [facility] 09-10-2024 Surgery Surgical operation note BRIEF OPERATIVE / PROCEDURE NOTE LOG ID: [id number] SURGERY/PROCEDURE DATE: 09/10/2024 INCISION/PROCEDURE START TIME: 8:44 AM INCISION CLOSE/PROCEDURE END TIME: 9:00 AM SURGEON(S)/PROCEDURALIST(S) AND AUTOMOBILE MECHANIC(S): Surgeons and Role: * Alan Hernandez MD - Primary * Aramis Mccray MD - Fellow No Additional Staff SURGERY/PROCEDURE(S): imaging guided bone marrow biopsy ANESTHESIA: Procedural Sedation FINDINGS: right posterior iliac bone marrow aspiration/bx - Complete dictation to follow under the Imaging tab in Epic ESTIMATED BLOOD LOSS: <10 mls SPECIMENS: 10 cc aspirate and 1.5 cm core COMPLICATIONS: None PRE-OP/PRE-PROCEDURE DIAGNOSIS: CML POST-OP/POST-PROCEDURE DIAGNOSIS: Same SIGNATURE: Aramis Mccray MD PATIENT NAME: Derrell Avitia JR DATE: September 10, 2024 TIME: 9:04 AM PAGER/CONTACT #: [phone] Radiology office automation clerk Pager #[phone] (use M-F after 5pm and Weekends) [facility] 09-10-2024 Surgical operation note BRIEF OPERATIVE / PROCEDURE NOTE LOG ID: [id number] SURGERY/PROCEDURE DATE: 09/10/2024 INCISION/PROCEDURE START TIME: 8:44 AM INCISION CLOSE/PROCEDURE END TIME: 9:00 AM SURGEON(S)/PROCEDURALIST(S) AND AUTOMOBILE MECHANIC(S): Surgeons and Role: * Alan Hernandez MD - Primary * Aramis Mccray MD - Fellow No Additional Staff SURGERY/PROCEDURE(S): imaging guided bone marrow biopsy ANESTHESIA: Procedural Sedation FINDINGS: right posterior iliac bone marrow aspiration/bx - Complete dictation to follow under the Imaging tab in Epic ESTIMATED BLOOD LOSS: <10 mls SPECIMENS: 10 cc aspirate and 1.5 cm core COMPLICATIONS: None PRE-OP/PRE-PROCEDURE DIAGNOSIS: CML POST-OP/POST-PROCEDURE DIAGNOSIS: Same SIGNATURE: rAamis Mccray MD PATIENT NAME: Derrell Avitia JR DATE: September 10, 2024 TIME: 9:04 AM PAGER/CONTACT #: [phone] Radiology office automation clerk Pager #[phone] (use M-F after 5pm and Weekends) documented in this encounter [facility] 09-10-2024 Instructions Formatting of th is note might be different from the original. AMBULATORY PATIENT EDUCATION TOPIC: Procedure Note: bone marrow biopsy READINESS TO LEARN COGNITIVE ABILITY: Alert and oriented MOTIVATION TO LEARN: Interested FAMILY SUPPORT: High - Very involved in pt care INSTRUCTION PROVIDED TO: Patient PATIENT LEARNS BEST BY: Unable to Assess FACTORS AFFECTING LEARNING: None PHYSICAL LIMITATIONS AFFECTING LEARNING: none LEARNING RESPONSE DIAGNOSIS: chronic myeloid leukemia METHOD OF INSTRUCTION: Individual instruction PATIENT / FAMILY RESPONSE: Information received as demonstrated by interest and questions FOLLOW-UP PLAN: Recommend - Recommend continued instruction and follow up as directed SUPPLEMENTAL MATERIAL: None REFERRAL (RECOMMENDATION): None Electronically Signed By: Emily Muro RN In Department: [facility] [id number] [facility] 09-10-2024 Miscellaneous Notes AMBULATORY PATIENT EDUCATION TOPIC: Procedure Note: bone marrow biopsy READINESS TO LEARN COGNITIVE ABILITY: Alert and oriented MOTIVATION TO LEARN: Interested FAMILY SUPPORT: High - Very involved in pt care INSTRUCTION PROVIDED TO: Patient PATIENT LEARNS BEST BY: Unable to Assess FACTORS AFFECTING LEARNING: None PHYSICAL LIMITATIONS AFFECTING LEARNING: none LEARNING RESPONSE DIAGNOSIS: chronic myeloid leukemia METHOD OF INSTRUCTION: Individual instruction PATIENT / FAMILY RESPONSE: Information received as demonstrated by interest and questions FOLLOW-UP PLAN: Recommend - Recommend continued instruction and follow up as directed SUPPLEMENTAL MATERIAL: None REFERRAL (RECOMMENDATION): None Electronically Signed By: Emily Muro RN In Department: [facility] [id number] documented in this encounter [facility] 09-10-2024 History and physical note RADIOLOGY PROCEDURAL SEDATION HISTORY AND PHYSICAL EXAM SERVICE DATE: 09/10/2024 SERVICE TIME: 8:13 AM Subjective HPI: 53 year old male who presents with CML, clinical trial. PROCEDURE: imaging guided bone marrow biopsy PROCEDURE INDICATIONS: treatment response PROCEDURE SCHEDULED: Procedure(s) with comments: DIAGNOSTIC BONE MARROW BIOPSY(IES) (N/A) - BONE MARROW BIOPSY RADIOLOGY ORDER PLACED: Radiology (1440h ago, onward) Start Ordered 07/21/24 0000 IMAGING GUIDED BIOPSY BONE MARROW (HEMATOLOGY) Routine 07/21/24 1939 07/14/24 0000 IMAGING GUIDED BIOPSY SOFT TISSUE MASS/MUSCLE Routine 07/14/24 1048 PAST ANESTHESIA HISTORY: No history of adverse event Prior to Admission medications as of 09/10/24 0711 Medication Sig Last Dose Taking pravastatin (PRAVACHOL) 80 mg tablet Take 1 tablet by mouth once daily. 09/09/2024 Yes blood sugar diagnostic (FREESTYLE PRECISION ADDISON STRIPS) test strip Use with blood glucose test one time daily 09/09/2024 Yes insulin lispro (HUMALOG KWIKPEN) 100 unit/mL Inject 15 units with breakfast and lunch and 20 units with dinner plus sliding scale (Max daily dose of 91 units daily) 09/09/2024 Yes lisinopril (ZESTRIL) 20 mg tablet Take 20 mg by mouth once daily. 09/09/2024 Yes insulin glargine (LANTUS SOLOSTAR U-100 INSULIN) 100 unit/mL (3 mL) Inject 35 Units subcutaneously twice daily. 09/09/2024 Yes empagliflozin (JARDIANCE) 25 mg tablet Take 1 tablet by mouth daily with breakfast. 09/06/2024 amLODIPine (NORVASC) 10 mg tablet Take 10 mg by mouth. flash glucose sensor (FREESTYLE CARLITOS 2 SENSOR) kit USE DIRECTED EVERY 14 DAYS flash glucose scanning reader (FREESTYLE CARLITOS 2 READER) Check glucose 4 times daily fluocinonide (LIDEX) 0.05 % ointment Apply to affected areas of rash twice daily x 2 weeks, then once daily x 2 weeks. NOT for face, armpits, or groin Insulin Syringe-Needle U-100 1 mL 25 x 1 syrg Use 1 syringe once daily to administer peg-interferon dose. ibuprofen (MOTRIN) 800 mg tablet 09/05/2024 ALLERGIES Allergen Reactions Opioids - Morphine * Vomiting, GI Upset PAST MEDICAL HISTORY Diagnosis Date CML (chronic myelocytic leukemia) (HCC) Hypertension PAST SURGICAL HISTORY Procedure Laterality Date ANES OPEN/SURG ARTHROSCOPIC PROC KNEE JOINT NOS right knee BACK SURGERY HX L4 and L5 infusion CHOLECYSTECTOMY TONSILLECTOMY HX Objective PHYSICAL EXAM: The remainder of the physical exam is noncontributory. AIRWAY: Airway Visualization of Uvula: Yes Mouth opening greater than 2 fingerbreadths: Yes Neck Full Range of Motion: Yes LUNGS: Lungs clear to auscultation, CARDIAC: Regular rhythm, Regular rate Assessment/Plan Imaging and labs reviewed. R/B/A discussed with patient. Proceed with imaging guided bone marrow biopsy. ASA Class: Patient with mild systemic disease Sedation Goal: Moderate SIGNATURE: Aramis Mccray MD PATIENT NAME: Derrell Avitia JR DATE: September 10, 2024 TIME: 8:13 AM PAGER: [phone] [facility] Work Phone: 09-10-2024 History and physical note RADIOLOGY PROCEDURAL SEDATION HISTORY AND PHYSICAL EXAM SERVICE DATE: 09/10/2024 SERVICE TIME: 8:13 AM Subjective HPI: 53 year old male who presents with CML, clinical trial. PROCEDURE: imaging guided bone marrow biopsy PROCEDURE INDICATIONS: treatment response PROCEDURE SCHEDULED: Procedure(s) with comments: DIAGNOSTIC BONE MARROW BIOPSY(IES) (N/A) - BONE MARROW BIOPSY RADIOLOGY ORDER PLACED: Radiology (1440h ago, onward) Start Ordered 07/21/24 0000 IMAGING GUIDED BIOPSY BONE MARROW (HEMATOLOGY) Routine 07/21/24 1939 07/14/24 0000 IMAGING GUIDED BIOPSY SOFT TISSUE MASS/MUSCLE Routine 07/14/24 1048 PAST ANESTHESIA HISTORY: No history of adverse event Prior to Admission medications as of 09/10/24 0711 Medication Sig Last Dose Taking pravastatin (PRAVACHOL) 80 mg tablet Take 1 tablet by mouth once daily. 09/09/2024 Yes blood sugar diagnostic (FREESTYLE PRECISION ADDISON STRIPS) test strip Use with blood glucose test one time daily 09/09/2024 Yes insulin lispro (HUMALOG KWIKPEN) 100 unit/mL Inject 15 units with breakfast and lunch and 20 units with dinner plus sliding scale (Max daily dose of 91 units daily) 09/09/2024 Yes lisinopril (ZESTRIL) 20 mg tablet Take 20 mg by mouth once daily. 09/09/2024 Yes insulin glargine (LANTUS SOLOSTAR U-100 INSULIN) 100 unit/mL (3 mL) Inject 35 Units subcutaneously twice daily. 09/09/2024 Yes empagliflozin (JARDIANCE) 25 mg tablet Take 1 tablet by mouth daily with breakfast. 09/06/2024 amLODIPine (NORVASC) 10 mg tablet Take 10 mg by mouth. flash glucose sensor (FREESTYLE CARLITOS 2 SENSOR) kit USE DIRECTED EVERY 14 DAYS flash glucose scanning reader (FREESTYLE CARLITOS 2 READER) Check glucose 4 times daily fluocinonide (LIDEX) 0.05 % ointment Apply to affected areas of rash twice daily x 2 weeks, then once daily x 2 weeks. NOT for face, armpits, or groin Insulin Syringe-Needle U-100 1 mL 25 x 1 syrg Use 1 syringe once daily to administer peg-interferon dose. ibuprofen (MOTRIN) 800 mg tablet 09/05/2024 ALLERGIES Allergen Reactions Opioids - Morphine * Vomiting, GI Upset PAST MEDICAL HISTORY Diagnosis Date CML (chronic myelocytic leukemia) (HCC) Hypertension PAST SURGICAL HISTORY Procedure Laterality Date ANES OPEN/SURG ARTHROSCOPIC PROC KNEE JOINT NOS right knee BACK SURGERY HX L4 and L5 infusion CHOLECYSTECTOMY TONSILLECTOMY HX Objective PHYSICAL EXAM: The remainder of the physical exam is noncontributory. AIRWAY: Airway Visualization of Uvula: Yes Mouth opening greater than 2 fingerbreadths: Yes Neck Full Range of Motion: Yes LUNGS: Lungs clear to auscultation, CARDIAC: Regular rhythm, Regular rate Assessment/Plan Imaging and labs reviewed. R/B/A discussed with patient. Proceed with imaging guided bone marrow biopsy. ASA Class: Patient with mild systemic disease Sedation Goal: Moderate SIGNATURE: Aramis Mccray MD PATIENT NAME: Derrell Avitia JR DATE: September 10, 2024 TIME: 8:13 AM PAGER: [phone] documented in this encounter [facility] 09-09-2024 History of Present illness Narrative Images from the original note were not included. Physical Therapy Physical Therapy Evaluation Visit Patient Name: Derrell Avitia Today's Date: 09/09/2024 Encounter Diagnoses Name Primary? Tear of left supraspinatus tendon Yes Left bicipital tenosynovitis Sprain of left shoulder, unspecified shoulder sprain type, initial encounter Visit number: 1 Time in: 11:15 am Time out: 12:15 pm Subjective Derrell Avitia 53 y.o. male presents to physical therapy w/ chief c/o L shoulder/arm pain. 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 Objective Enters in sling and abd pad positioned correctly. L elbow, forearm, wrist hand AROM wnl and at least 3/5 MMT (not formally tested) L Shoulder PROM: flex to 80, abd to 70, ER to 10, IR to 30, ext to 0 pain/guarding limiting all. L shoulder AROM and strength n/a 2nd to post-op status and PROM only per protocol at this time. Treatment Interventions Education: HEP education with demonstration with handout and review including pullys, Educated on Eval Findings and POC, protocol/precautions and importance x 10 min self care/home maintenance Manual Therapy: PROM, gentle stretching, massage x 10 min fair+ tolerance, limited ROM, some difficulty not guarding Therapeutic Exercise: per HEBERT grid, ROM/flexibility, strength as appropriate (PROM only at shoulder to start) x 15 min sup, advised to just hang only with codmans until pain free. Difficulty with flex stretch st at counter will try seated version next session. Modalities: CP only today x 10 min, add ESU prn Assessment/Plan L shoulder pain, decreased ROM, weakness causing increased difficulty with ADLs/self care, decreased QOL s/p RCR, SAD, biceps tenodesis 08/16/24 following trip/fall injury at work 05/19/24 Patient Goals Short Term Goal #1: pt will demo L shoulder AROM grossly WNL all planes pain free Short Term Goal #2: pt will demo L shoulder and elbow strenght grossly greater than or equal to 4/5 MMT all planes pain free Short Term Goal #3: pt will be cleared to return to full ADLs including RTW full duty pending Dr clearance. Short Term Goal #4: pt will be ind with HEP for maintenance/progression prn at DC from PT Pt will benefit from skilled PT to address the above impairments for 2-3x/week for 12 weeks per C9 approved 08/31 - 12/01 I hereby deem this POC medically necessary. Please sign below. Date: documented in this encounter [facility] 09-08-2024 History of Present illness Narrative [facility] Emergency Response Team Date of the Event: September 08, 2024 Time of the Event:1000 Select Floor / Area: [facility] Reason/Chief Complaint for Emergency Call (Check all that apply): Other: Increased troponin with other s/s History of Events Prior to ABRAN Activation and any treatment administered prior to ABRAN Team arrival? Pt in clinic for CML visit. Pt c/o some L jaw pain and had increased troponin on labs. ABRAN activated per Dr Howell. Individuals involved in Emergency Medical Response? Marcelino Finney LPN, Paula Tuttle RN, Keyla Stacy RN Patient Disposition: Emergency Department Marcelino Finney LPN [facility] Department of Hematologic Oncology and Blood Disorders PATIENT NAME: Derrell Hsu [facility] NO: [id number] Date of service: 09/08/2024 Reason for visit: Follow up of CML on clinical trial, ACTG 1920 Diagnosis: 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 (imatinib, dasatinib, nilotinib, bosutinib and ponatinib) Current Treatment - On a clinical trial - ACTG 1920 20-071 Title: A phase 1b study of the pharmacokinetics, safety and efficacy of orally administered [id number] in subjects with refractory chronic myeloid leukemia [...] log reduction) 03/17/2024 - 0.1818% 06/16/2024 - 0.2795% Interval History - He has being doing [...] pharmacokinetics, safety and efficacy of orally administered [id number] in subjects with refractory chronic myeloid leukemia [...] follow up as per clinical trial protocol. . Troponin elevated = sent to ED fro evaluation. 2) Hypertension - On amlodipine and lisinopril. [...] same [place] [address], [place] [address], monocytosis (5700), 6700 lymphocytes, 500 basophils and thrombocytopenia with platelets at [id number]. Metaphase cytogenetics showed presence of t(9;22) in [...] pharmacokinetics, safety and efficacy of orally administered [id number] in subjects with refractory chronic myeloid leukemia [...] motor strength. Psychiatric: Memory, short term & [facility] intact; no disturbance in sleep pattern and [...] December of 2023 Current medication: Reviewed from [employer] and integrated in assessment and plan. Social History: He is . 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 He does not smoke cigarettes and has [...] radiation therapy, chemotherapy. Physical Examination: Vitals: BP 169/78 Pulse 75 Temp 36.8 C (98.2 F) (Oral) Resp 15 Wt 119 kg (262 lb 5.6 oz) SpO2 99% BMI 36.93 kg/m ECOG PERFORMANCE STATUS: 1- Restricted in [...] No edema Labs: Reviewed and in Epic William Howell MD PhD MPH Associate Staff Hematologic Oncology and Blood Disorders Pager [phone] Date of service: 09/08/2024 I spent a total of 40 minutes on the date of the service which included preparing to see the patient, [id number] patient care, completing clinical documentation, obtaining and/or [...] No Does patient want to see a Computer Hardware Designer? No (yes to any of above refer patient to schedulers for dietitian appointment) ) Does patient have any new or increased numbness or tingling of extremities? Yes, Left hand (swollen) Is patient interested in fertility information? No Does patient need any prescription refills? No Does patient have an advanced directive in place? No, Patient refused referral to Social Work or Resource Center documented in this encounter [facility] 09-08-2024 History of Present illness Narrative Summary: ACTG 1919 cycle 54 day 28 ACTG 1919 A phase 1b study of the pharmacokinetics, safety and efficacy of orally administered [id number] in subjects with refractory chronic myeloid leukemia (CML). Patient is here for screening for ACTG 1919 / . 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 06/19/2020 Patient met all inclusion and exclusion criteria and deemed eligible to participate on the study by the sponsor 09/08/2024 (Cycle 54 day 28) UNSCHEDULED Subject #: 016-002 Patient met with research team, pleasant and engaged in conversation. Patient had his left shoulder surgery on 08/16/2024. Patient wearing his sling for his left arm/shoulder. Patient reports that he has left jaw pain that started on 09/01/2024 and is still present, especially with movement. Patients left hand index and middle finger knuckle area is red warm and swollen. Patient denies any numbness or tingling. Patient with an elevated High Sensitivity Troponin of 56 ng/dL. Dr. Howell explained to the patient that he is sending the patient to the ER for cardiac workup. Patient in agreement and verbalized understanding. Dr. Howell reviewed all labs and AE's with attributions. ECHO LVEF: pending BMBx: scheduled for 09/10/2024 EKG: done in the ER QTcF 417 ms PE: Dr. Howell ECO VS: 09/08/24 09:10 Weight 119 kg (262 lb 5.6 oz) BSA 0 BMI 0 Temp 36.8 C (98.2 F) Pulse 75 Resp 15 BP 169/78 [1] SpO2 99 % [1] Right arm sitting PAST MEDICAL HISTORY Diagnosis Date Status CML (chronic myelocytic leukemia) ([facility]) 12/2011 Active chronic phase not controlled Hypertension [...] L4 and L5 infusion Prior to 03/2012 GA ANESTH,KNEE JOINT; NOS right knee Prior to [...] 12/2014 -- 03/2016 Bosutinib 03/2016 - 05/02/2017 [facility] [id number] trial of Ponatinib 05/21/2017 - [...] %IS .52 03/17/2024 BCR/ABL1 P210 %IS .18 06/16/2024 BCR/ABL1 P210 %IS .27 Medications: NKA Medication Dose Start Date Stop [...] once a day 05/13/2022 05/22/2023 Blood pressure Ava 5/325 mg 1 tab PO x 1 [...] mg orally once a day 04/17/202311/2023 Diabetes Percocet 5/325 mg 08/16/2024 08/23/2024 Post op surgical pain of left shoulder Toxicities: CTCAE V. 5 SCREENING all predate [...] 06/12/2020 Aspartate aminotransferase increased Grade 1 UNRELATED 53 Start date: 06/12/2020. Resolved: ongoing. Drugs used to treat: none. Outcome: Still present. Hyperglycemia Grade 2 UNRELATED Start date: 06/05/2020. Resolved: ongoing. Drugs used to treat:yes. Outcome: Still present. Hypertriglyceridemia Grade 2 UNRELATED Start date: 06/12/2020. Resolved: ongoing. Drugs used to treat: none. Outcome: Still present. Alkaline phosphatase Grade 1 UNRELATED 136 (prior to drug)Start date: 06/19/2020. Resolved: ongoing. Drugs used to treat:no Outcome:present intermittently. Hyponatremia Grade 1 UNRELATED (prior to drug) Start date 06/19/2020 Resolved:ongoing.Drugs used to treat: no. Outcome: present intermittently CTCAE v.5 Fasting labs 09/08/2024: Hypertension Grade 1 Unrelated Start date 08/14/2020 [...] on 06/19/2020. Alanine aminotransferase increased Grade 1. Unrelated. Start date: 12/24/2023. Resolve date: ongoing. Drugs to treat: none. Outcome: still present Lipase Grade 1 Possibly related Start date:09/08/2024 Resolved: ongoing Drugs used to treat: no. Outcome:present Localized edema (left hand) Grade 1 Unrelated Start date:09/05/2024 Resolved: ongoing Drugs used to treat: no. Outcome:present Pain-left jaw Grade 1 Possibly related Start date:09/01/2024 Resolved: ongoing Drugs used to treat: no. Outcome:present Cardiac troponin T increased Grade 1 Possibly related Start date:09/08/2024 Resolved: ongoing Drugs used to treat: no. Outcome:present Resolved AE's: Hypertriglyceridemia Grade 3 Unrelated(prior to [...] Patients last dose of study drug was 09/06/2024 Next dose due on 09/08/2024 dose is on hold d/t patient cardiac workup in the ER. Previously: Re-educated patient on how to complete the [...] Patient verbalized understanding of all information provided. 09/08/2024 Patient returned drug diary from previous visit completed. Patient returned: 3 bottles, 2 empty and 1 bottle with 45 tablets. The count is accurate. Patient was made aware prior to going to the ER that if he is discharged from the ER then dispensing can occur on Friday when he is back for the bone marrow biopsy. Patient verbalized understanding. Patient aware next appointment is 09/10/2024 for bone marrow biopsy that can be viewed on [facility]. Patient presented today to participate on the [...] nurse's contact information and after hours fellows office automation clerk. Patient understands that this participation is voluntary and that he may withdraw at any time during the trial. Paula Tuttle RN,OCN documented in this encounter [facility] 09-02-2024 Nurse Note Pre- e instructions: Contacted patient and confirmed appt. for bone marrow biopsy scheduled on 09/10/24, at [facility]. Diet: Do not eat solid food after midnight the night before your procedure. You may have water until 6:00am Medications: IF ok with your Prescribing Provider: RADIOLOGY RECOMMENDS THESE MEDICATION RESTRICTIONS : Jardiance, Humalog, Lantus Hold Jardiance 3 days prior to this procedure.. Hold short acting insulin the day of procedure. Long acting insulin, take dose. Medication pumps: Insulin pumps must be removed before entering the procedure room. Do you wear Neulasta Onpro? No If yes, the devise must be removed before entering the procedure room. Contrast Dye Prep: Do you have a contrast dye allergy? No Arrival: Please bring your Photo ID and Insurance Card. A general consent may need to be signed. Arrival at 6:30am to desk QB-1 ([facility]) and check in for your procedure. Field Cane Scale Clerk/Transportation: How will you be arriving for your procedure? Private car. You will need a responsible adult to accompany you to and from the procedure. Your distribution driver is required to stay with you until you are taken into the Procedure room. Recovery expectations: You can expect to be at the hospital for the majority of the day. Please do not schedule any other appointments the day of your procedure. Written instructions provided to patient via ponUp If you have any questions please call [phone] [facility] 09-02-2024 Nurse Note Pre- e instructions: Contacted patient and confirmed appt. for bone marrow biopsy scheduled on 09/10/24, at [facility]. Diet: Do not eat solid food after midnight the night before your procedure. You may have water until 6:00am Medications: IF ok with your Prescribing Provider: RADIOLOGY RECOMMENDS THESE MEDICATION RESTRICTIONS : Jardiance, Humalog, Lantus Hold Jardiance 3 days prior to this procedure.. Hold short acting insulin the day of procedure. Long acting insulin, take dose. Medication pumps: Insulin pumps must be removed before entering the procedure room. Do you wear Neulasta Onpro? No If yes, the devise must be removed before entering the procedure room. Contrast Dye Prep: Do you have a contrast dye allergy? No Arrival: Please bring your Photo ID and Insurance Card. A general consent may need to be signed. Arrival at 6:30am to desk QB-1 ([facility]) and check in for your procedure. Field Cane Scale Clerk/Transportation: How will you be arriving for your procedure? Private car. You will need a responsible adult to accompany you to and from the procedure. Your distribution driver is required to stay with you until you are taken into the Procedure room. Recovery expectations: You can expect to be at the hospital for the majority of the day. Please do not schedule any other appointments the day of your procedure. Written instructions provided to patient via ponUp If you have any questions please call [phone] documented in this encounter [facility] 08-20-2024 Note [id number] [email or web address] Telephone encounter Note I called patient and left a vm to call the office to see him today to look at his sling to fix it [facility] 08-17-2024 Miscellaneous Notes I called patient and left a vm to call the office to see him today to look at his sling to fix it Said that sling was taken apart at the hospital and they tried to put it back together and now it doesn't fit correctly, wants to come in today and have it adjusted? Please advise documented in this encounter [facility] 08-17-2024 Telephone encounter Note Said that sling was taken apart at the hospital and they tried to put it back together and now it doesn't fit correctly, wants to come in today and have it adjusted? Please advise [facility] 08-17-2024 Note [id number]-16[facility]24 Note [facility] SURGERY Clinical Discharge Summary PERSON INFORMATION Name DERRELL AVITIA Jr Age 53 Years 1970 Sex MALE Language Bulgarian PCP AMAN PACK Marital Status [facility] Service Ambulatory Surgery Acct# Arrival 08/16/2024 09:10:44 Visit Reason SURGERY - LEFT SHOULDER ARTHROSCOPY WITH ROTATOR CUFF REPAIR AND BICEP TENODESIS Acuity LOS 035 02:37 [address]: [address] [place] [id number] Comment: PROVIDER INFORMATION VITALS INFORMATION Vital Sign Triage Latest Temp Oral Temp Temporal Temp Intravascular Temp Axillary Temp Rectal 02 Sat 99 % 96 % Respiratory Rate Peripheral Pulse Rate Apical Heart Rate Blood Pressure / 91 mmHg / 78 mmHg Comment: MEDICAL INFORMATION Allergy Info: morphine Prescriptions Given: amLODIPine (amLODIPine 10 mg oral tablet) 1 tab(s) Oral (given by mouth) every day. empagliflozin (Jardiance 25 mg oral tablet) TAKE 1 TABLET BY MOUTH IN THE MORNING WITH A MEAL. insulin glargine (Lantus Solostar Pen 100 units/mL subcutaneous solution) INJECT 35 UNITS SUBCUTANEOUSLY (UNDER THE SKIN) TWICE DAILY. insulin lispro (HumaLOG 100 units/mL injectable solution) 5 unit(s) Subcutaneous (under the skin) 3 times a day before meals. per sliding scale. lisinopril (lisinopril 20 mg oral tablet) 1 tab(s) Oral (given by mouth) every day. pravastatin (pravastatin 80 mg oral tablet) 1 tab(s) Oral (given by mouth) every day. Template Non-Formulary (trial drug for CML) 3 cap(s) Oral (given by mouth) every other day. Medication List: Medications to Continue That Have Not Changed Other Medications amLODIPine (amLODIPine 10 mg oral tablet) 1 tab(s) Oral (given by mouth) every day. empagliflozin (Jardiance 25 mg oral tablet) TAKE 1 TABLET BY MOUTH IN THE MORNING WITH A MEAL. insulin glargine (Lantus Solostar Pen 100 units/mL subcutaneous solution) INJECT 35 UNITS SUBCUTANEOUSLY (UNDER THE SKIN) TWICE DAILY. insulin lispro (HumaLOG 100 units/mL injectable solution) 5 unit(s) Subcutaneous (under the skin) 3 times a day before meals. per sliding scale. lisinopril (lisinopril 20 mg oral tablet) 1 tab(s) Oral (given by mouth) every day. pravastatin (pravastatin 80 mg oral tablet) 1 tab(s) Oral (given by mouth) every day. Template Non-Formulary (trial drug for CML) 3 cap(s) Oral (given by mouth) every other day. Medications to Continue That Have Not Changed Other Medications amLODIPine (amLODIPine 10 mg oral tablet) 1 tab(s) Oral (given by mouth) every day. empagliflozin (Jardiance 25 mg oral tablet) TAKE 1 TABLET BY MOUTH IN THE MORNING WITH A MEAL. insulin glargine (Lantus Solostar Pen 100 units/mL subcutaneous solution) INJECT 35 UNITS SUBCUTANEOUSLY (UNDER THE SKIN) TWICE DAILY. insulin lispro (HumaLOG 100 units/mL injectable solution) 5 unit(s) Subcutaneous (under the skin) 3 times a day before meals. per sliding scale. lisinopril (lisinopril 20 mg oral tablet) 1 tab(s) Oral (given by mouth) every day. pravastatin (pravastatin 80 mg oral tablet) 1 tab(s) Oral (given by mouth) every day. Template Non-Formulary (trial drug for CML) 3 cap(s) Oral (given by mouth) every other day. Medications to Continue That Have Not Changed Other Medications amLODIPine (amLODIPine 10 mg oral tablet) 1 tab(s) Oral (given by mouth) every day. empagliflozin (Jardiance 25 mg oral tablet) TAKE 1 TABLET BY MOUTH IN THE MORNING WITH A MEAL. insulin glargine (Lantus Solostar Pen 100 units/mL subcutaneous solution) INJECT 35 UNITS SUBCUTANEOUSLY (UNDER THE SKIN) TWICE DAILY. insulin lispro (HumaLOG 100 units/mL injectable solution) 5 unit(s) Subcutaneous (under the skin) 3 times a day before meals. per sliding scale. lisinopril (lisinopril 20 mg oral tablet) 1 tab(s) Oral (given by mouth) every day. pravastatin (pravastatin 80 mg oral tablet) 1 tab(s) Oral (given by mouth) every day. Template Non-Formulary (trial drug for CML) 3 cap(s) Oral (given by mouth) every other day. Comment: Lab and Radiology Results Laboratory or Other Results This Visit (last charted value for your 08/16/2024 visit) Chemistry 08/16/2024 2:45 PM Glucose, POC: 123 mg/dL -- Normal range between ( 74 and 118 ) DIET & ACTIVITY Patient Activity Level: Patient Diet: Patient Activity Restrictions: DISCHARGE INFORMATION Discharge Disposition: Discharge Location: DEPART REASON INCOMPLETE INFORMATION PATIENT EDUCATION INFORMATION Instructions: Stepanic Shoulder Discharge Instructions (MHMPATRICK) (MHGSTEPANIC) Follow up: With: Address: When: Yaniv Hernandez [address] [place] [address] [phone] Business (1) 08/30/2024 8:30 AM DIAGNOSIS Complete rotator cuff tear of left shoulder Comment: PHYS DOC NOTES [facility] 08-11-2024 History of Present illness Narrative 190 [...] blood glucose range is 180-200 mg/dl. An ALDEN inhibitor/angiotensin II receptor christina is not being [...] compliance problems. There is no history of CAD/OK, heart failure or PVD. SUBJECTIVE: MEDICATIONS: Current Outpatient Medications Medication Instructions amLODIPine (NORVASC) 10 mg, Oral, Daily B-D UF III MINI PEN NEEDLES 31G X 5 MM [facility] Continuous Blood Gluc Security Systems Sales Representative (FreeStyle [place] [employer] [place]) device USE DIRECTED TO CHECK GLUCOSE FOUR [...] dose on amlodipine since last visit with ca Bp much better No changes in med dose at this time Rotator cuff tear, right 08/07/2023 Spondylolisthesis Past Surgical History: Procedure Laterality Date BACK SURGERY [address] ANGIOGRAM HEART CORONARY 06/29/2019 CT ANGIOGRAM [...] Items Addressed This Visit Essential (primary) hypertension ([facility]) Please check blood pressure daily and record [...] hyperglycemia, with long-term current use of insulin ([facility]) Check blood sugars daily, notify if <70 [...] and simple sugars. Current meds: jardiance, insulin, alden, statin A1c: 8.5% on 06/16/24, had been having difficulty getting meds, in that 90 day period, however the previous A1c was 10.5% Jardiance samples: 25mg : 1/2 pill daily #3 samples, lot [id number], exp 08/04 Relevant Medications empagliflozin (Jardiance) 25 [...] . 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 of insulin (CMS/HCC) Continues w basal and bolus insulin Type 2 diabetes mellitus with diabetic nephropathy ([facility]/HCC) Check labs yearly and prn Goal to control both DM and HTN Relevant Orders Microalbumin / creatinine, urine ratio Urinalysis with microscopic (reflex culture if indicated) Other Visit Diagnoses Type 2 diabetes mellitus with hyperglycemia (CMS/HCC) Other hypertrophic cardiomyopathy (CMS/HCC) Primary hypertension (CMS/HCC) Relevant Medications amLODIPine (Norvasc) 10 MG tablet lisinopril 20 MG tablet Associated Problem(s): termite helper (current) use of insulin (CMS/HCC) Continues w basal and bolus insulin Associated Problem(s): Hyperlipidemia (CMS/HCC) Is on statin therapy Continue yearly labs and prn dose changes Associated Problem(s): Chronic myeloid leukemia, BCR/ABL-positive, not having achieved remission (CMS/HCC) Continues with treatment through [facility] Associated Problem(s): Type 2 diabetes mellitus with hyperglycemia, with long-term current use of insulin ([facility]) Check blood sugars daily, notify if <70 [...] and simple sugars. Current meds: jardiance, insulin, alden, statin A1c: 8.5% on 06/16/24, had been having difficulty getting meds, in that 90 day period, however the previous A1c was 10.5% Jardiance samples: 25mg : 1/2 pill daily #3 samples, lot [id number], exp 08/04 Associated Problem(s): Type 2 diabetes mellitus with diabetic nephropathy ([facility]) Check labs yearly and prn Goal to control both DM and HTN Associated Problem(s): Morbid (severe) obesity due to excess calories ([facility]) Discussed with patient their BMI (actual, verses [...] not use PAP documented in this encounter [facility] 08-11-2024 Instructions Rolf Chung NP - 08/11/2024 8:40 AM EST Get labs: PSA blood test and urine test Address plans for colonoscopy at next visit documented in this encounter [facility] 08-04-2024 Nurse Note Preoperative Education Checklist- General Surgery date: 08/13/24 Surgery time: 1030a Arrival time: 830a 1. Bring a photo ID and your insurance card with you the day of surgery. You will check in at the main lobby of the [facility]- registration desk is straight ahead as soon as you walk in. Tell them you are here for surgery. 2. If you have a Living Will/Durable Power of Medical Billing Specialist for Health Care that is not on [...] after you have bathed. 5. NO nail lebanese/acrylic on at least one finger. If you are having a hand, wrist or foot surgery then all nail lebanese and artificial/acrylic nails must be removed from [...] please call the Preadmission Testing office at [phone], Mon.-Fri. 7 a.m.-3 p.m. Leave a voicemail if needed. Pre-Surgery Instructions: Medication Instructions amLODIPine (NORVASC) 5 mg tablet Take morning of procedure empagliflozin (JARDIANCE) 25 mg tablet tablet Stop taking 3 days prior to procedure FREESTYLE CARLITOS 2 SENSOR kit Take morning of procedure [...] tablet Check with prescribing doctor for instructions [facility] Miscellaneous Notes Preoperative Education Checklist- General Surgery date: 08/13/24 Surgery time: 1030a Arrival time: 830a 1. Bring a photo ID and your insurance card with you the day of surgery. You will check in at the main lobby of the [facility]- registration desk is straight ahead as soon as you walk in. Tell them you are here for surgery. 2. If you have a Living Will/Durable Power of Medical Billing Specialist for Health Care that is not on [...] after you have bathed. 5. NO nail lebanese/acrylic on at least one finger. If you are having a hand, wrist or foot surgery then all nail lebanese and artificial/acrylic nails must be removed from [...] please call the Preadmission Testing office at [phone], Mon.-Fri. 7 a.m.-3 p.m. Leave a voicemail if needed. Pre-Surgery Instructions: Medication Instructions amLODIPine (NORVASC) 5 mg tablet Take morning of procedure empagliflozin (JARDIANCE) 25 mg tablet tablet Stop taking 3 days prior to procedure FREESTYLE CARLITOS 2 SENSOR kit Take morning of procedure [...] doctor for instructions documented in this encounter [facility] 08-02-2024 History of Present illness Narrative Images [...] dose on amlodipine since last visit with ca Bp much better No changes in med [...] MINI PEN NEEDLES 31G X 5 MM [facility] Continuous Blood Gluc Security Systems Sales Representative (FreeStyle Carlitos [employer] [place]) device USE DIRECTED TO CHECK GLUCOSE FOUR [...] Brace was dispensed to the patient and [employer] Patient Agreement was completed and signed. Warranty information was given and explained to the patient with good understanding. Proper care and fitting was also explained to the patient with good understanding. LT SHOULDER SCOPE WITH RCR/BICEP TENODESIS 08/16/24 @ [facility] 08[facility]02[facility] [place] [id number] [address] [id number] No follow-ups on file. documented in this encounter [facility] 07-30-[address] Tompkins reviews JENNIFER Metzger information and testing results. No orders given, ok to proceed with procedure. [Electronically Signed on: 07/30/2024 09:04 EST] ___ Cecilia Gaitan RN [Verified on: 07/30/2024 09:04 EST] ___ Cecilia Gaitan RN [facility] 07-23-2024 Telephone encounter Note Spoke to pt and scheduled biopsy for 09/10/24. [facility] 07-23-2024 Miscellaneous Notes Spoke to pt and scheduled biopsy for 09/10/24. Order incorrect, paged Dr. Howell. --->Nc, I have a biopsy request for René [id number] and the order is incorrect. Please place order # [id number]. Jake, Margarita [id number] RADIOLOGIST REQUEST / APPROVAL FORM STAFF RADIOLOGIST: Dr. Marks PROCEDURE TO BE DONE UNDER: CT PROCEDURE REQUESTED: CORE Requested PROCEDURE: Approved TIME SLOT NEEDED: 1 Hour NOTES: bmbx, CML, clinical trial SPECIAL LABS/ PROCESSING: kit for trial send out ACTG 7180 Pre-procedure labs: CBC: not needed INR: not needed COVID: not needed SIR Bleeding risk category for this procedure: low risk. Reference from [facility] Inhalation Therapy Aide: https://ccf.policyNerd Attack.com/dotNet/doc uments/?[email or web address] STAFF SIGNATURE: Avelino Coffman MD DATE: July [...] mg by mouth. flash glucose sensor (FREESTYLE CARLITOS 2 SENSOR) kit USE DIRECTED EVERY 14 DAYS lisinopril (ZESTRIL) 20 mg tablet Take 20 mg by mouth once daily. insulin glargine (LANTUS SOLOSTAR U-100 INSULIN) 100 unit/mL (3 mL) Inject 35 Units subcutaneously twice daily. flash glucose scanning reader (WiseStampSTYLE CARLITOS 2 READER) Check glucose 4 times daily [...] CONTACT INFORMATION: Best way to reach patient [phone] SCHEDULING: Date: 09/10/2024 (Specific requests must be [...] (If the imaging was obtained outside the [facility] system, PLEASE upload for review prior to approval.) Note to all persons requesting biopsies: All biopsy requests will be scheduled as quickly as possible, based on the clinical urgency, availability of appointment times, the need to hold anti-thrombolytic therapy (aspirin and other blood thinners) and the patient s schedule, including the need for an available distribution driver. If a percutaneous biopsy or drainage is not felt to be safe or an alternative method for establishing a diagnosis is possible, this will be discussed directly with the requesting physician. documented in this encounter [facility] 07-22-2024 History of Present illness Narrative Images [...] History: Diagnosis Date CML (chronic myelocytic leukemia) ([facility]) Diabetes mellitus type 2, controlled ([facility]) Hyperlipidemia Hypertension Rash Sleep apnea cpap Visual [...] in the morning., Disp: , Rfl: FREESTYLE CARLITOS 2 SENSOR kit, every 14 (fourteen) days., [...] Med Name: trial chemo drug, unknown name [id number], Disp: , Rfl: pravastatin (PRAVACHOL) 40 mg [...] Interpersonal Safety: Unknown (07/31/2023) Re[facility] from [facility] [place] Safety & Environment Fear of Current [...] patient/family/caregiver Referring and communicating with other health care transport nurse Encounter for screening colonoscopy [Z12.11] FANNY VALLEJO [facility] General Surgery [place] This note was created with the assistance of a speech recognition program. While intending to generate a timely document that accurately reflects the content of the visit, no guarantee can be provided that every grammatical or spelling mistake has been or will be identified or corrected. Thank you for your understanding. FANNY Vallejo 07/22/24 1106 documented in this encounter [facility] 07-21-2024 Telephone encounter Note Returned patients call [...] consistency like peanut butter. Patient verbalized understanding. [facility] 07-21-2024 Miscellaneous Notes Returned patients call about [...] Patient verbalized understanding. documented in this encounter [facility] 07-21-2024 Telephone encounter Note Thanks. I would let him and his employment evaluator/case manager decide best course of action. [facility] Work Phone: 07-21-2024 Miscellaneous Notes Thanks. I would let him and his employment evaluator/case manager decide best course of action. Spoke with pt and he is already working with that restriction of no use of left shoulder/right arm work only. I did advise him to reach out to employment evaluator/case manager. States having pain after working and at night. He is BWC. I think we can [...] already he will need to contact his correctional counselor/case manager. Patient is scheduled for surgery, but says that he is in a lot of pain wanted to see if we can write him off work until surgery. Please advise? documented in this encounter [facility] 07-21-2024 Telephone encounter Note Spoke with pt and he is already working with that restriction of no use of left shoulder/right arm work only. I did advise him to reach out to employment evaluator/case manager. States having pain after working and at night. [facility] 07-21-2024 Telephone encounter Note He is [...] already he will need to contact his correctional counselor/case manager. [facility] 07-21-2024 Telephone encounter Note Patient is scheduled for surgery, but says that he is in a lot of pain wanted to see if we can write him off work until surgery. Please advise? [facility] 07-19-2024 Telephone encounter Note Order incorrect, paged Dr. Howell. --->Nc, I have a biopsy request for [place] [id number] and the order is incorrect. Please place order # [id number]. Margarita Joseph [id number] [facility] 07-14-2024 Telephone encounter Note RADIOLOGIST REQUEST / APPROVAL FORM STAFF RADIOLOGIST: Dr. Marks PROCEDURE TO BE DONE UNDER: CT PROCEDURE REQUESTED: CORE Requested PROCEDURE: Approved TIME SLOT NEEDED: 1 Hour NOTES: bmbx, CML, clinical trial SPECIAL LABS/ PROCESSING: kit for trial send out ACTG 3395 Pre-procedure labs: CBC: not needed INR: not needed COVID: not needed SIR Bleeding risk category for this procedure: low risk. Reference from [facility] Inhalation Therapy Aide: [email or web address] STAFF SIGNATURE: Avelino Coffman MD DATE: July 14, 2024 TIME: 4:02 PM [facility] Work Phone: 07-14-2024 Telephone encounter Note BX. [...] by mouth once daily. blood sugar diagnostic (WiseStampSTYLE PRECISION ADDISON STRIPS) test strip Use with blood glucose test one time daily insulin lispro (HUMALOG KWIKPEN) 100 unit/mL Inject 15 units with breakfast and lunch and 20 units with dinner plus sliding scale (Max daily dose of 91 units daily) amLODIPine (NORVASC) 10 mg tablet Take 10 mg by mouth. flash glucose sensor (WiseStampSTYLE CARLITOS 2 SENSOR) kit USE DIRECTED EVERY 14 DAYS lisinopril (ZESTRIL) 20 mg tablet Take 20 mg by mouth once daily. insulin glargine (LANTUS SOLOSTAR U-100 INSULIN) 100 unit/mL (3 mL) Inject 35 Units subcutaneously twice daily. flash glucose scanning reader (FREESTYLE CARLITOS 2 READER) Check glucose 4 times daily [...] DATE: July 14, 2024 TIME: 12:50 PM [facility] 07-14-2024 Telephone encounter Note STAFF-INITIATED RADIOLOGY BIOPSY / ASPIRATION / DRAIN REQUEST FORM Date: July 14, 2024 Time: 10:59 AM PATIENT CONTACT INFORMATION: Best way to reach patient [phone] SCHEDULING: Date: 09/10/2024 (Specific requests must be greater than 10 business days from the date of request) RADIOLOGY SERVICE GROUP (Abdominal / Thoracic / MSK / Neuro): Bone- Biopsy Site: bone marrow biopsy SPECIFICS OF THE REQUEST (Please be as detailed as possible): Bone marrow biopsy and aspirate SPECIAL REQUESTS: TISSUE SAMPLE, LABWORK: Special Requests: kit for trial send out ACTG 1920 MEDICAL DIAGNOSIS: CML C92.10 (i.e. Known primary cancer or suspected diagnosis) IMAGING STUDY AND DATE THAT IS THE BASIS OF THE REQUEST: n/a (Note: Requests for random organ biopsies, specifically liver and kidney random biopsies do not need imaging.) IMAGING: n/a (If the imaging was obtained outside the [facility] system, PLEASE upload for review prior to approval.) Note to all persons requesting biopsies: All biopsy requests will be scheduled as quickly as possible, based on the clinical urgency, availability of appointment times, the need to hold anti-thrombolytic therapy (aspirin and other blood thinners) and the patient s schedule, including the need for an available distribution driver. If a percutaneous biopsy or drainage is not felt to be safe or an alternative method for establishing a diagnosis is possible, this will be discussed directly with the requesting physician. [facility] 07-06-2024 History of Present illness Narrative Images from the original note were not included. HISTORY OF PRESENT ILLNESS: EST PT Derrell Avitia is an 53 y.o. @ male. EST PT; S/P RT SHOULDER SCOPE 12/09/23 (~7MO) -RECHECK STRENGTH/ROM; DOING WELL PT HAS BEEN APPROVED BY [facility] FOR LT SHOULDER SCOPE EMG RT UE [...] MINI PEN NEEDLES 31G X 5 MM [facility] Continuous Blood Gluc Security Systems Sales Representative ([employer] Carlitos 2 [place]) device USE DIRECTED TO CHECK GLUCOSE FOUR [...] Tobacco Use: Low Risk (06/16/2024) Received from [facility] Patient History Smoking Tobacco Use: Never Smokeless [...] requiring urgent evaluation. documented in this encounter [facility] 06-18-2024 History of Present illness Narrative Images from the original note were not included. HISTORY OF PRESENT ILLNESS: EST PT Derrell Avitia is an 53 y.o. @ male. CLAIM (JAQUI TRAORE CLAIM [id number]) APPROVED DX : S43.402A EST PT, NEW PROBLEM; *[facility]* (L) SHOULDER PAIN- DOI 05/19/24. (4 WEEKS, 2 DAYS); PAIN AFTER A FALL, HE TRIPPED AT WORK LANDING ON SHOULDER. XRAY (L) SHOULDER 05/19/24 - [facility] MRI (L) SHOULDER 05/26/24 - [facility] NO MDP/[place] NO INJ NO P.T NO [...] MINI PEN NEEDLES 31G X 5 MM [facility] Continuous Blood Gluc Security Systems Sales Representative ([employer] Carlitos 2 [place]) device USE DIRECTED TO CHECK GLUCOSE FOUR [...] Tobacco Use: Low Risk (06/16/2024) Received from [facility] Patient History Smoking Tobacco Use: Never Smokeless [...] requiring urgent evaluation. documented in this encounter [facility] 06-16-2024 History of Present illness Narrative CRC 1 Documentation IRB#: [id number], [facility]# ACTG 1920, Study Title: A phase 1b study of the pharmacokinetics, safety and efficacy of orally administered [id number] in subjects with refractory chronic myeloid leukemia [...] Ortiz, Research Coordinator documented in this encounter [facility] 06-16-2024 History of Present illness Narrative [facility] Department of Hematologic Oncology and Blood Disorders PATIENT NAME: Derrell Avitia [facility] NO: [id number] Date of service: 06/16/2024 Reason for visit: Follow up of CML on clinical trial, ACTG 1920 Diagnosis: 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 (imatinib, dasatinib, nilotinib, bosutinib and ponatinib) Current Treatment - On a clinical trial - ACTG 1920 20-574 Title: A phase 1b study of the pharmacokinetics, safety and efficacy of orally administered [id number] in subjects with refractory chronic myeloid leukemia [...] He started the CML clinical trial - [facility] 1920 20-998 Title: A phase 1b study of the pharmacokinetics, safety and efficacy of orally administered [id number] in subjects with refractory chronic myeloid leukemia [...] same [place] [address], [place] [address], monocytosis (5700), 6700 lymphocytes, 500 basophils and thrombocytopenia with platelets at 077787. Metaphase cytogenetics showed presence of t(9;22) in [...] He was enrolled on a clinical trial, [facility] 2915 15-875 A Randomized, Open-label, Phase 2 [...] pharmacokinetics, safety and efficacy of orally administered [id number] in subjects with refractory chronic myeloid leukemia [...] motor strength. Psychiatric: Memory, short term & [place] [facility] intact; no disturbance in sleep pattern and [...] December of 2023 Current medication: Reviewed from [facility] and integrated in assessment and plan. Social History: He is . 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 He does not smoke cigarettes and has [...] Extremities: No edema Labs: Reviewed and in [facility] William Howell MD PhD MPH Associate Staff Hematologic Oncology and Blood Disorders Pager [phone] Date of service: 06/16/2024 I spent a total of 40 minutes on the date of the service which included preparing to see the patient, [id number] patient care, completing clinical documentation, obtaining and/or [...] No Does patient want to see a Computer Hardware Designer? No (yes to any of above refer patient to schedulers for dietitian appointment) ) Does patient have any new or increased numbness or tingling of extremities? No Is patient interested in fertility information? No Does patient need any prescription refills? No Does patient have an advanced directive in place? No, Patient refused referral to Social Work or Resource Center documented in this encounter [facility] 06-16-2024 History of Present illness Narrative Summary: ACTG 1920 / 20-998 cycle 51 day 28 ACTG 1920 20-998 A phase 1b study of the pharmacokinetics, safety and efficacy of orally administered [id number] in subjects with refractory chronic myeloid leukemia [...] L4 and L5 infusion Prior to 03/2012 [place] ANESTH,KNEE JOINT; NOS right knee Prior to [...] 12/2014 -- 03/2016 Bosutinib 03/2016 - 05/02/2017 [facility] 2915 15-875 trial of Ponatinib 05/21/2017 - [...] once a day 05/13/2022 05/22/2023 Blood pressure Ava 5/325 mg 1 tab PO x 1 [...] mg of HQP every other day. Lot# [id number] Patient aware next appointment is 09/08/2024 can be viewed on [employer]. Patient presented today to participate on the [...] nurse's contact information and after hours fellows office automation clerk. Patient understands that this participation is voluntary and that he may withdraw at any time during the trial. Paula Tuttle RN,OCN documented in this encounter [facility] 06-10-2024 Miscellaneous Notes Called Everardo regarding the screening colonoscopy referral that our office received from Rolf Chung NP, left a message on voicemail to call the office back to schedule an appointment. Also called on: 06/08 LM TRC 06/04 LM SE [facility] Telephone encounter Note Called Everardo regarding the screening colonoscopy referral that our office received from Rolf Chnug NP, left a message on voicemail to call the office back to schedule an appointment. 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 An ALDEN inhibitor/angiotensin II receptor christina is being taken. He does not see a parer.Eye exam is not current. Hypertension This is [...] Past treatments include calcium channel blockers and ALDEN inhibitors. The current treatment provides significant improvement. There are no compliance problems. Hypertensive end-organ damage includes CAD/OK. SUBJECTIVE: MEDICATIONS: Current Outpatient Medications Medication Instructions amLODIPine (NORVASC) 10 mg, Oral, Daily Continuous Blood Gluc Security Systems Sales Representative ([employer] Carlitos 2 [place]) device USE DIRECTED TO CHECK GLUCOSE FOUR [...] current use of insulin (CMS/HCC) - Primary Check blood sugars daily, notify [...] sugars. Current meds: jardiance, glipizide XL, insulin, alden, statin Current A1c: no due until next month #3 samples Jardiance: 25mg [id number], exp 07/2025 Will try a co pay [...] Does not use PAP Hypertrophic cardiomyopathy (CMS/HCC) As per cardiology Chronic myeloid leukemia (CMS/HCC) Continue with oncology Would like him to ask if asa 81mg can be started Hyperlipidemia (CMS/HCC) Is on statin therapy Continue yearly labs and prn dose changes Colon cancer screening [facility]er to [facility] Relevant Orders Ambulatory referral to General Surgery [...] sugars. Current meds: jardiance, glipizide XL, insulin, alden, statin Current A1c: no due until next month #3 samples Jardiance: 25mg [id number], exp 07/2025 Will try a co pay [...] not use PAP documented in this encounter [facility] 05-31-2024 Instructions Rolf Chung NP - 05/31/2024 3:20 PM EST Ask cancer doctor if ok for you to take baby aspirin 81mg daily for help to protect with Diabetes Will refer for colonoscopy Dr Solis Bring in Patient assistance form for Jardiance as well documented in this encounter [facility] 05-10-2024 History of Present illness Narrative [facility] Department of Hematologic Oncology and Blood Disorders PATIENT NAME: Derrell Hsu [facility] NO: [id number] Date of service: 03/17/2024 Reason for visit: Follow up of CML on clinical trial Diagnosis: 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 (imatinib, dasatinib, nilotinib, bosutinib and ponatinib) Current Treatment - On a clinical trial - ACT 1920 20-998 Title: A phase 1b study of the pharmacokinetics, safety and efficacy of orally administered [id number] in subjects with refractory chronic myeloid leukemia [...] pharmacokinetics, safety and efficacy of orally administered [id number] in subjects with refractory chronic myeloid leukemia [...] same [place] [address], [place] [address], monocytosis (5700), 6700 lymphocytes, 500 basophils and thrombocytopenia with platelets at 664209. Metaphase cytogenetics showed presence of t(9;22) in [...] [facility] A Randomized, Open-label, Phase 2 [...] pharmacokinetics, safety and efficacy of orally administered [id number] in subjects with refractory chronic myeloid leukemia [...] motor strength. Psychiatric: Memory, short term & [place] [facility] intact; no disturbance in sleep pattern and [...] > 10 years Current medication: Reviewed from [facility] and integrated in assessment and plan. Current Outpatient Medications Medication Sig Dispense Refill empagliflozin (JARDIANCE) 25 mg tablet Take 1 tablet by mouth daily with breakfast. 90 tablet 0 pravastatin (PRAVACHOL) 80 mg tablet Take 1 tablet by mouth once daily. blood sugar diagnostic (WiseStampSTDatadog PRECISION ADDISON STRIPS) test strip Use with blood glucose test one time daily 100 Strip 3 insulin lispro (HUMALOG KWIKPEN) 100 unit/mL Inject 15 units with breakfast and lunch and 20 units with dinner plus sliding scale (Max daily dose of 91 units daily) 90 mL 3 amLODIPine (NORVASC) 10 mg tablet Take 10 mg by mouth. flash glucose sensor (WiseStampSTYLE CARLITOS 2 SENSOR) kit USE DIRECTED EVERY 14 DAYS 6 Each 3 lisinopril (ZESTRIL) 20 mg tablet Take 20 mg by mouth once daily. insulin glargine (LANTUS SOLOSTAR U-100 INSULIN) 100 unit/mL (3 mL) Inject 35 Units subcutaneously twice daily. 75 mL 3 flash glucose scanning reader (FREESTYLE CARLITOS 2 READER) Check glucose 4 times daily [...] is . 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 He does not smoke cigarettes and has [...] which included preparing to see the patient, [id number] patient care, obtaining and/or reviewing separately obtained history, performing a medically appropriate examination, counseling and educating the patient/family/caregiver, ordering medications, tests, or procedures, communicating with other HCPs (not separately reported), independently interpreting results (not separately reported), and communicating results to the patient/family/caregiver. William Howell MD PhD MPH Associate Staff Hematologic Oncology and Blood Disorders Pager [phone] Date of service: 03/17/2024 documented in this encounter [facility] 04-27-2024 History of Present illness Narrative Associated [...] 10 mg, Oral, Daily Continuous Blood Gluc Security Systems Sales Representative ([employer] Carlitos 2 [place]) device USE DIRECTED TO CHECK GLUCOSE FOUR [...] dose on amlodipine since last visit with ca Bp much better No changes in med [...] Items Addressed This Visit Essential (primary) hypertension ([facility]/HCC) - Primary Please check blood pressure daily and record DASH diet Limit caffeine Take medication as directed Contact office if chest pain, pressure, dizziness, shortness of breath, swelling legs Recommend slow position changes Relevant Medications lisinopril 20 MG tablet Type 2 diabetes mellitus with hyperglycemia, with long-term current use of insulin ([facility]) See endo notes regarding DM Check blood [...] and simple sugars. Is on statin and alden therapy D/w pt and his , about where he is going to go for his diabetes care, is going to stay with this office Chronic myeloid leukemia ([facility]/HCC) Continue with oncology Hyperlipidemia ([facility]) Relevant Medications pravastatin (Pravachol) 80 MG tablet [...] loss. 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/HCC) Bilateral hand pain No hx autoimmune, worse during cold months Has had xrays in the past showed OA Recommend he contact his oncologist, see if ok for him to use OTC capcasin cream Other Visit Diagnoses Primary hypertension (CMS/HCC) Relevant Medications lisinopril 20 MG tablet Associated Problem(s): Chronic myeloid leukemia (CMS/HCC) Continue with oncology Associated Problem(s): Type 2 [...] and simple sugars. Is on statin and alden therapy D/w pt and his , about [...] slow position changes documented in this encounter [facility] 04-27-2024 Instructions Rolf Chung NP - 04/27/2024 3:20 PM EST Jardiance 25mg tablet: take 1/2 pill daily, we will give you Patient Assistance Form for him to complete Call you oncologist: ask him if you can use an over the counter cream called Capcasin .cream documented in this encounter [facility] 04-16-2024 Instructions Alexx Dalal APRN.DOMINIC - 04/16/2024 3:59 PM EST Plan Continue: [...] in 3 months documented in this encounter [facility] 04-16-2024 Procedure note Procedure(s): EXTERNAL EQUIPMENT CLEANER, CGM SYS Images from the original note were not included. [facility] 04-16-2024 Procedure note Procedure(s): EXTERNAL EQUIPMENT CLEANER, CGM SYS Images from the original note were not included. documented in this encounter [facility] 04-16-2024 History of Present illness Narrative Endocrinology Follow Up PCP: Rolf Chung [facility] History of Present Illness Derrell Aracelis Avitia JR is a 53 year old male presents today for follow up of DM Type 2. At [facility] no changes made to regimen. Recent HbA1c is 10.5%. He was out of his basal insulin for 2 months in January and February as he was not working (was on leave from shoulder surgery) and could not afford this. He also had not been wearing his Carlitos for the same reason. He was given Jardiance samples by his PCP as he could not afford Farxiga. He has a high deductible plan so has difficulty obtaining brand name medications. He did resume Carlitos in late February/early March and glucose was very well controlled, although was having lows. He stopped glipizide due to the lows, as instructed by his PCP. Lows resolved with stopping glipizide. He is not currently wearing his Carlitos but plans to grain picker this week. Has a history of CML. [...] lows last year. Date of Diagnosis: 2019 Last HbA1c: Hemoglobin A1C (%) Date Value 03/17/2024 [...] mouth once daily. ALDEN Inhibitors pravastatin (PRAVACHOL) 80 mg tablet Take 1 tablet by mouth once daily. Antihyperlipidemic - HMG CoA Reductase Inhibitors (statins) OTHER Medication Dosage Pharm Subclass blood sugar diagnostic (WiseStampSTYLE PRECISION ADDISON STRIPS) test strip Use with blood glucose test one time daily Medical Supplies and DME - Blood Glucose Tests flash glucose scanning reader (WiseStampSTYLE CARLITOS 2 READER) Check glucose 4 times daily Medical Supplies and DME - Glucose Monitoring Test Supplies flash glucose sensor (FREESTYLE CARLITOS 2 SENSOR) kit USE DIRECTED EVERY 14 [...] dose. Medical Supplies and DME - Insulin Coleman-Syringes and Admin Supplies Physical Activity: Sedentary Diet: Does not follow a diabetic diet, but making improvements recently SMBG Frequency of Monitorin times daily Summary of Personal CGM Findings: Dates worn: 03/03/2024-03/16/2024 CGM Type: Carlitos 1- CGM recording is adequate for interpretation. [...] Desk Reference: National Heart, Lung, and Blood [place]. National Institutes of Health. 2001: [facility] Publication No. 3305. HDL Cholesterol Date Value Ref Range Status 05/13/2022 38 (L) >39 mg/dL Final Comment: 40-59 mg/dL, Acceptable >59 mg/dL, High: Negative risk factor for coronary heart disease <40 mg/dL, Low: Positive risk factor for coronary heart disease Reference: 1. National Cholesterol Education Program ATP III Guideline At-A-Glance Quick Desk Reference: National Heart, Lung, and Blood [place]. National Institutes of Health. 2001: [facility] Publication No. 3305. LDL Cholesterol Date Value [...] Desk Reference: National Heart, Lung, and Blood [place]. National Institutes of Health. 2001: [facility] Publication No. 3305. Latest Ref Rng [...] is on ALDEN-I or ARB and SGLT2i. -- Repeat UACR. [...] at the time of the patient encounter Alexx Dalal APRN.EAR NOSE THROAT PHYSICIAN (Signed electronically to expedite mailing) documented in this encounter [facility] 03-29-2024 History of Present illness Narrative Images from the original note were not included. HISTORY OF PRESENT ILLNESS: EST PT Derrell Avitia is an 53 y.o. @ male. EST PT; MOST RECENT VISIT WITH DESIREE- S/P RT SHOULDER SCOPE 12/09/23 (15WKS 6DAYS) [...] 10 mg, Oral, Daily Continuous Blood Gluc Security Systems Sales Representative ([employer] Carlitos 2 [place]) device USE DIRECTED TO CHECK GLUCOSE FOUR [...] reassess his right shoulder strength / ROM. Kapil Kilpatrick D.O. documented in this encounter [facility] 03-19-2024 Surgery Surgical operation note BRIEF OPERATIVE / PROCEDURE NOTE LOG ID: [id number] SURGERY/PROCEDURE DATE: 03/19/2024 INCISION/PROCEDURE START TIME: 8:48 AM INCISION CLOSE/PROCEDURE END TIME: SURGEON(S)/PROCEDURALIST(S) AND AUTOMOBILE MECHANIC(S): Surgeons and Role: * Rafael Hahn MD - Primary * Chad Aguirre DO [...] DATE: March 19, 2024 TIME: 8:56 AM [facility] 03-19-2024 Surgical operation note BRIEF OPERATIVE / PROCEDURE NOTE LOG ID: [id number] SURGERY/PROCEDURE DATE: 03/19/2024 INCISION/PROCEDURE START TIME: 8:48 AM INCISION CLOSE/PROCEDURE END TIME: SURGEON(S)/PROCEDURALIST(S) AND AUTOMOBILE MECHANIC(S): Surgeons and Role: * Rafael Hahn MD - Primary * Chad Agurire DO - Fellow No Additional Staff SURGERY/PROCEDURE(S): bone marrow biopsy ANESTHESIA: Procedural Sedation FINDINGS: successful right posterior iliac bone marrow biopsy ESTIMATED BLOOD LOSS: 0 ml SPECIMENS: 14ml aspirate and 1.9cm core COMPLICATIONS: None PRE-OP/PRE-PROCEDURE DIAGNOSIS: CML POST-OP/POST-PROCEDURE DIAGNOSIS: Same as Preop SIGNATURE: Chad Aguirre DO PATIENT NAME: Derrell Avitia JR DATE: March 19, 2024 TIME: 8:56 AM documented in this encounter [facility] 03-19-2024 History of Present illness Narrative Radiology [...] PATIENT PRESENTS WITH AN IMPLANTABLE OR ATTACHED PALLET SORTER: No RADIOLOGY DEPARTMENT: Ct guided bone marrow biopsy PERIPHERAL IV DATA: Not applicable SIGNED BY: RT Karina(Rita) March 19, 2024 8:45 AM documented in this encounter [facility] 03-19-2024 Instructions Formatting of th is note [...] Signed By: Sadaf Barry RN In Department: [facility] Time spent on patient education: 05 minutes. [facility] 03-19-2024 Miscellaneous Notes AMBULATORY PATIENT EDUCATION NOTE [...] Signed By: Sadaf Barry RN In Department: [place] [address] Time spent on patient education: 05 minutes. documented in this encounter [facility] 03-19-2024 History and physical note PROCEDURAL SEDATION [...] 10 mg by mouth. flash glucose sensor (WiseStampSTYLE CARLITOS 2 SENSOR) kit USE DIRECTED EVERY 14 DAYS flash glucose scanning reader (FREESTYLE CARLITOS 2 READER) Check glucose 4 times daily [...] DATE: March 19, 2024 TIME: 7:51 AM [facility] Work Phone: 03-19-2024 History and physical note [...] once daily. 03/18/2024 Yes blood sugar diagnostic (WiseStampSTYLE PRECISION ADDISON STRIPS) test strip Use with [...] mg by mouth. flash glucose sensor (FREESTYLE CARLITOS 2 SENSOR) kit USE DIRECTED EVERY 14 DAYS flash glucose scanning reader (FREESTYLE CARLITOS 2 READER) Check glucose 4 times daily [...] TIME: 7:51 AM documented in this encounter [facility] 03-17-2024 Nurse Note Additional intake questions: Has the patient had fever, nausea, vomiting, diarrhea, constipation, fatigue for > 1 week? Yes, fatigue and Provider Notified Does the patient have a decreased appetite? No Does patient want to see a Computer Hardware Designer? No (yes to any of above refer patient to schedulers for dietitian appointment) ) Does patient have any new or increased numbness or tingling of extremities? No Is patient interested in fertility information? No Does patient need any prescription refills? No Does patient have an advanced directive in place? No, Patient referred to [facility] Electronically Signed By: Marcelino Finney LPN [facility] 03-17-2024 Nurse Note Additional intake questions: Has the patient had fever, nausea, vomiting, diarrhea, constipation, fatigue for > 1 week? Yes, fatigue and Provider Notified Does the patient have a decreased appetite? No Does patient want to see a Computer Hardware Designer? No (yes to any of above refer patient to schedulers for dietitian appointment) ) Does patient have any new or increased numbness or tingling of extremities? No Is patient interested in fertility information? No Does patient need any prescription refills? No Does patient have an advanced directive in place? No, Patient referred to [facility] Electronically Signed By: Marcelino Finney LPN documented in this encounter [facility] 03-17-2024 History of Present illness Narrative Summary: ACTG 1920 / 20-998 cycle 48 day 28 ACTG 1920 A phase 1b study of the pharmacokinetics, safety and efficacy of orally administered [id number] in subjects with refractory chronic myeloid leukemia [...] ms, 410 ms, 400 ms PE: Dr. Hoewll ECO Ankle-brachial index: Left brachial 154/84 Left [...] floaters in both eyes (eye exam 05/05) 017 Active no medication or treatment Diabetes 12/2019 Active controlled with medication Rash 11/2019 Active uncontrolled,medication to start 05/29/2020 PAST SURGICAL HISTORY BACK SURGERY HX L4 and L5 infusion Prior to 03/2012 [place] ANESTH,KNEE JOINT; NOS right knee Prior to [...] 12/2014 -- 03/2016 Bosutinib 03/2016 - 05/02/2017 [facility] 2915 15-875 trial of Ponatinib 05/21/2017 - [...] once a day 05/13/2022 05/22/2023 Blood pressure Ava 5/325 mg 1 tab PO x 1 [...] on 03/18/2024 then every other day. Lot# [id number] Patient aware next appointment is 06/16/2024 and can be viewed on [employer]. Patient presented today to participate on the [...] nurse's contact information and after hours fellows office automation clerk. Patient understands that this participation is voluntary and that he may withdraw at any time during the trial. Paula Tuttle RN,OCN documented in this encounter [facility] 03-17-2024 History of Present illness Narrative Summary: ACTG 1920 [id number] CRC Documentation IRB#: [id number], [facility]#: ACTG 1920, Study Title: A phase 1b study of the pharmacokinetics, safety and efficacy of orally administered [id number] in subjects with refractory chronic myeloid leukemia [...] to [facility] lab on 03/16/2024 Given to Paula Tuttle RN or review. Raheem Santos, Research Coordinator documented in this encounter [facility] 03-12-2024 Nurse Note Pre-procedure phone call: ? Contacted Derrell René . Your appointment is confirmed for Bone Marrow Biopsy scheduled on Friday03/19/24, at [facility]. I will be providing you with important instructions for your procedure, if not followed your procedure may need to be cancelled or rescheduled. Arrival: Arrive to desk -1 ([facility]) by 6:30 Am and check in for [...] MUST be removed prior to procedure. ? Field Cane Scale Clerk/Transportation: You will need a responsible adult to accompany you to and from the procedure. Your distribution driver is required to stay with you until you are taken into the procedure room. Recovery expectations: You will be in the recovery room post procedure for a minimum of 1 Hour. Written instructions provided to patient via [employer] For Questions/ Concerns: If you have any questions or concerns regarding your procedure please don't hesitate to call Biopsy Coordinator at [phone] [facility] 03-12-2024 Nurse Note Pre-procedure phone call: ? Contacted Derrell René . Your appointment is confirmed for Bone Marrow Biopsy scheduled on Friday03/19/24, at [facility]. I will be providing you with important instructions for your procedure, if not followed your procedure may need to be cancelled or rescheduled. Arrival: Arrive to [facility] ([facility]) by 6:30 Am and check in for [...] MUST be removed prior to procedure. ? Field Cane Scale Clerk/Transportation: You will need a responsible adult to accompany you to and from the procedure. Your distribution driver is required to stay with you until you are taken into the procedure room. Recovery expectations: You will be in the recovery room post procedure for a minimum of 1 Hour. Written instructions provided to patient via [employer] For Questions/ Concerns: If you have any questions or concerns regarding your procedure please don't hesitate to call Biopsy Coordinator at [phone] documented in this encounter [facility] 03-03-2024 History of Present illness Narrative Associated Problem(s): Type 2 diabetes mellitus with hyperglycemia, with long-term current use of insulin ([facility]) Non compliant with basal insulin, secondary to lack of money to buy it. Should have money tomorrow For now d/t financial issues: we are going to use jardiance 25m/2 pill daily for 6 days, then increase to 1 pill daily (#6 samples given lot [id number], exp 08/04 If blood sugar is less than 150 stop the glipizide Fu in 4 weeks for recheck Associated Problem(s): Primary hypertension ([facility]) Stable, no med dose changes Pt has [...] also not been wearing his Free Style Carlitos, d/t recent shoulder surgery and he could [...] the time. He does not see a parer.Eye exam is current. Hypertension This is a [...] obesity and sedentary lifestyle. Past treatments include ALDEN inhibitors and calcium channel blockers. The current treatment provides significant improvement. There are no compliance problems. Hypertensive end-organ damage includes CVA. There is no history of kidney disease or retinopathy. SUBJECTIVE: MEDICATIONS: Current Outpatient Medications Medication Instructions amLODIPine (NORVASC) 10 mg, Oral, Daily Continuous Blood Gluc Security Systems Sales Representative (SenGenixyle Carlitos 2 [place]) device USE DIRECTED TO CHECK GLUCOSE FOUR [...] dose on amlodipine since last visit with ca Bp much better No changes in med [...] 1 pill daily (#6 samples given lot [id number], exp 08/04 If blood sugar is less than 150 stop the glipizide Fu in 4 weeks for recheck Body mass index (BMI) 37.0-37.9, adult Obstructive sleep apnea (adult) (pediatric) Morbid (severe) obesity due to excess calories (CMS/HCC) documented in this encounter [facility] 03-03-2024 History of Present illness Narrative Images [...] requiring urgent evaluation. documented in this encounter [facility] 03-01-2024 History of Present illness Narrative Images from the original note were not included. HISTORY OF PRESENT ILLNESS: POST OP PT Derrell Avitia is an 53 y.o. @ male. EST PT; MOST RECENT VISIT WITH DESIREE- S/P RT SHOULDER SCOPE 12/09/23 (11WKS 6DAYS)- [...] tinnels at cubital tunnel. No weakness with digital printer operator. Neg Frohmets. Neg tinnels [place]. Right [...] Referral Reason: Consult and Treat Referral Location: [facility] Requested Specialty: Physical Therapy Number of [...] I am acting as scribe for Dr. Kilpatrick/jeh, PLAN: We have discussed (R) UE EMG [...] reassess his right shoulder strength / ROM. Kapil Kilpatrick D.O. documented in this encounter [facility] 02-26-2024 History of Present illness Narrative Images from the original note were not included. Reason for Appointment: EMG Patient: Derrell Avitia : 1970 EMG Computer: [employer] Referring Physician: Lars Belcher PA-C EMG: CARROLL lens finisher: Ariel Dias RT(R) Office Location: [place] Reason for EMG: c/o numbness/tingling in 4th & 5th digits on right hand. Hx of surgery to right shoulder. Hx of DM. Not on blood thinners Comments: Procedure was explained to the patient who expressed understanding. Patient appeared to have tolerated the test well despite some discomfort due to the nature of the test. documented in this encounter [facility] 02-19-2024 Telephone encounter Note DDM called needing the quantity changed on his lantus to either 60 (4boxes) or 75 (5boxes) they can not do 63ML because they can not seperate a box. If you could resend the lantus order with new quantity [facility] 02-19-2024 Miscellaneous Notes DDM called needing the quantity changed on his lantus to either 60 (4boxes) or 75 (5boxes) they can not do 63ML because they can not seperate a box. If you could resend the lantus order with new quantity documented in this encounter [facility] 02-04-2024 History of Present illness Narrative Images [...] tinnels at cubital tunnel. No weakness with digital printer operator. Neg Frohmets. Neg tinnels [place]. Right [...] SAD and double row rotator cuff repair Evaltingsabifinger: PLAN: F/U Dr. Kilpatrick s/p EMG RUE [...] requiring urgent evaluation. documented in this encounter [facility] 12-26-2023 Telephone encounter Note Spoke to patient. Verified by name and date of . Notified below message. Notified to call pharmacy to verify if medication went through and to call office if not covered by insurance. Patient verbalized understanding. [facility] 12-26-2023 Miscellaneous Notes Spoke to patient. Verified [...] his blood sugars. Thanks Derrell is calling Alexx Dalal APRN.CNP today stating his A1c is elevated and asking if there is something else he should be doing to bring it down? Please advise. Latest Ref Rng 10/01/2023 12/24/2023 Hemoglobin A1C 4.3 - 5.6 % 6.8 (H) 8.7 (H) Estimated Average Glucose mg/dL 148 203 Legend: (H) High Derrell is calling Alexx Dalal APRN.DOMINIC today stating his A1c is elevated and asking if there is something else he should be doing to bring it down? Please advise. Patient has been identified by name and birthdate. Duration of symptoms: N/A Person calling: self Call patient at: on cell [phone] (home) [phone] (cell) Was an appointment scheduled: No Closing statement: Results or non-symptom based questions: Thank you for calling [facility], your call will be returned within the next business day. Jacklyn Singh documented in this encounter [facility] 12-26-2023 Telephone encounter Note Prior encounter noted Jardiance was not authorized by insurance because he had to try Glipizide first, so that was started instead. Now will try reordering Jardiance, if approved he should start that to help his blood sugars. Thanks [facility] 12-26-2023 Telephone encounter Note Derrell is calling Alexx Dalal APRN.CNP today stating his A1c is elevated and asking if there is something else he should be doing to bring it down? Please advise. Latest Ref Rng 10/01/2023 12/24/2023 Hemoglobin A1C 4.3 - 5.6 % 6.8 (H) 8.7 (H) Estimated Average Glucose mg/dL 148 203 Legend: (H) High [facility] 12-26-2023 Telephone encounter Note Derrell is calling Alexx Dalal APRN.CNP today stating his A1c is elevated and asking if there is something else he should be doing to bring it down? Please advise. Patient has been identified by name and birthdate. Duration of symptoms: N/A Person calling: self Call patient at: on cell [phone] (home) [phone] (cell) Was an appointment scheduled: No Closing statement: Results or non-symptom based questions: Thank you for calling [facility], your call will be returned within the next business day. Jacklyn Singh [facility] 12-26-2023 Telephone encounter Note Called and spoke with pt about repeat troponin results being lower from 12/24/2023. Pt verbalized understanding. Pt plans to follow up with his endocrine provider due to his A1C and triglyceride results being elevated. [facility] Work Phone: 12-26-2023 Miscellaneous Notes Called and spoke with pt about repeat troponin results being lower from 12/24/2023. Pt verbalized understanding. Pt plans to follow up with his endocrine provider due to his A1C and triglyceride results being elevated. documented in this encounter [facility] 12-24-2023 History of Present illness Narrative Summary: ACTG Cycle 45 day 28 visit ACTG 1919 A phase 1b study of the pharmacokinetics, safety and efficacy of orally administered [id number] in subjects with refractory chronic myeloid leukemia [...] get repeat high sensitivity troponin tomorrow in [place]. Pt will go in the morning. Pt [...] 408, 400, 406 ms PE: Stephany Menard EAR NOSE THROAT PHYSICIAN ECO Ankle-brachial index: Left brachial 143/67 Left [...] L4 and L5 infusion Prior to 03/2012 [place] ANESTH,KNEE JOINT; NOS right knee Prior to [...] 12/2014 -- 03/2016 Bosutinib 03/2016 - 05/02/2017 [facility] 2915 15-875 trial of Ponatinib 05/21/2017 - [...] 14 units sq at dinner 05/2022 Diabetes Ava 5/325 mg 1 tab PO x 1 [...] on 12/25/2023 then every other day. Lot# [id number] Patient aware next appointment is 03/17/2024 and can be viewed on [employer]. Patient presented today to participate on the [...] nurse's contact information and after hours fellows office automation clerk. Patient understands that this participation is voluntary and that he may withdraw at any time during the trial. ОЛЬГА Cabrera, RN documented in this encounter [facility] 12-24-2023 History of Present illness Narrative CRC Documentation IRB#: [id number], [facility]#: ACTG 1920, Study Title: A phase 1b study of the pharmacokinetics, safety and efficacy of orally administered [id number] in subjects with refractory chronic myeloid leukemia [...] VS completed: Yes-Completed by Ludy Mead OCCA EKNishant (Triplicate): Yes MISC1 kit delivered to [facility] lab on 12/23/2023 Given to RN/Ludy Harkins, RN for review. Raheem Santos, Research Coordinator documented in this encounter [facility] 12-24-2023 History of Present illness Narrative Elements have been copied from prior note on 10/01/2023 - The elements have been reviewed and updated where appropriate, and all reflect my current assessment and decision-making from today, 12/24/2023. [facility] Department of Hematologic Oncology and Blood Disorders PATIENT NAME: Derrell Hsu [facility] NO: [id number] Date of service: 12/24/2023 Reason for visit: Follow up of CML on clinical trial Diagnosis: 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 (imatinib, dasatinib, nilotinib, bosutinib and ponatinib) Current Treatment - On a clinical trial - ACTG 1920 20-998 Title: A phase 1b study of the pharmacokinetics, safety and efficacy of orally administered [id number] in subjects with refractory chronic myeloid leukemia [...] pharmacokinetics, safety and efficacy of orally administered [id number] in subjects with refractory chronic myeloid leukemia [...] same [place] [address], [place] [address], monocytosis (5700), 6700 lymphocytes, 500 basophils and thrombocytopenia with platelets at 802014. Metaphase cytogenetics showed presence of t(9;22) in [...] and consented for the clinical trial - [facility] 1920 20-998 Title: A phase 1b study of the pharmacokinetics, safety and efficacy of orally administered [id number] in subjects with refractory chronic myeloid leukemia [...] motor strength. Psychiatric: Memory, short term & [place] [facility] intact; no disturbance in sleep pattern and [...] > 10 years Current medication: Reviewed from [facility] and integrated in assessment and plan. Current [...] mg by mouth. flash glucose sensor (FREESTYLE CARLITOS 2 SENSOR) kit USE DIRECTED EVERY 14 DAYS 6 Each 3 lisinopril (ZESTRIL) 20 mg tablet Take 20 mg by mouth once daily. insulin glargine (LANTUS SOLOSTAR U-100 INSULIN) 100 unit/mL (3 mL) Inject 35 Units subcutaneously twice daily. 75 mL 3 flash glucose scanning reader (FREESTYLE CARLITOS 2 READER) Check glucose 4 times daily [...] is . 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 He does not smoke cigarettes and has [...] which included preparing to see the patient, [id number] patient care, obtaining and/or reviewing separately obtained history, performing a medically appropriate examination, counseling and educating the patient/family/caregiver, ordering medications, tests, or procedures, communicating with other HCPs (not separately reported), independently interpreting results (not separately reported), and communicating results to the patient/family/caregiver. Signed: Deb Menard APRN.CNP documented in this encounter [facility] 12-24-2023 Nurse Note Additional intake questions: Has the patient had fever, nausea, vomiting, diarrhea, constipation, fatigue for > 1 week? Yes, fatigue and Provider Notified Does the patient have a decreased appetite? No Does patient want to see a Computer Hardware Designer? No (yes to any of above refer patient to schedulers for dietitian appointment) ) Does patient have any new or increased numbness or tingling of extremities? No Is patient interested in fertility information? No Does patient need any prescription refills? No Does patient have an advanced directive in place? No [facility] 12-24-2023 Nurse Note Additional intake questions: Has the patient had fever, nausea, vomiting, diarrhea, constipation, fatigue for > 1 week? Yes, fatigue and Provider Notified Does the patient have a decreased appetite? No Does patient want to see a Computer Hardware Designer? No (yes to any of above refer patient to schedulers for dietitian appointment) ) Does patient have any new or increased numbness or tingling of extremities? No Is patient interested in fertility information? No Does patient need any prescription refills? No Does patient have an advanced directive in place? No documented in this encounter [facility] 12-19-2023 Telephone encounter Note Spoke to pt and scheduled biopsy for 03/19/24 per triage. [facility] 12-19-2023 Miscellaneous Notes Spoke to pt and [...] for this procedure: low risk. Reference from [facility] Inhalation Therapy Aide: [email or web address]/doc [email or web address]/?[email or web address] STAFF SIGNATURE: Jessee Jung MD DATE: December [...] by mouth once daily. blood sugar diagnostic (Seat 14A PRECISION ADDISON STRIPS) test strip Use with blood glucose test one time daily insulin lispro (HUMALOG KWIKPEN) 100 unit/mL Inject 15 units with breakfast and lunch and 20 units with dinner plus sliding scale (Max daily dose of 91 units daily) amLODIPine (NORVASC) 10 mg tablet Take 10 mg by mouth. flash glucose sensor (WiseStampSTYLE CARLITOS 2 SENSOR) kit USE DIRECTED EVERY 14 DAYS lisinopril (ZESTRIL) 20 mg tablet Take 20 mg by mouth once daily. insulin glargine (LANTUS SOLOSTAR U-100 INSULIN) 100 unit/mL (3 mL) Inject 35 Units subcutaneously twice daily. flash glucose scanning reader (WiseStampSTYLE CARLITOS 2 READER) Check glucose 4 times daily [...] REQUESTS: TISSUE SAMPLE, LABWORK: [facility] MEDICAL DIAGNOSIS: CML (i.e. Known primary cancer or suspected diagnosis) IMAGING STUDY AND DATE THAT IS THE BASIS OF THE REQUEST: IR needed for bone marrow biopsy and aspiration (Note: Requests for random organ biopsies, specifically liver and kidney random biopsies do not need imaging.) IMAGING: n/a (If the imaging was obtained outside the [facility] system, PLEASE upload for review prior to approval.) Note to all persons requesting biopsies: All biopsy requests will be scheduled as quickly as possible, based on the clinical urgency, availability of appointment times, the need to hold anti-thrombolytic therapy (aspirin and other blood thinners) and the patient s schedule, including the need for an available distribution driver. If a percutaneous biopsy or drainage is not felt to be safe or an alternative method for establishing a diagnosis is possible, this will be discussed directly with the requesting physician. documented in this encounter [facility] 12-17-2023 Telephone encounter Note Order pending, will call pt once signed. [facility] 12-15-2023 Telephone encounter Note RADIOLOGIST REQUEST / APPROVAL FORM STAFF RADIOLOGIST: Dr. Kang PROCEDURE TO BE DONE UNDER: CT PROCEDURE REQUESTED: CORE Requested PROCEDURE: Approved TIME SLOT NEEDED: 1 Hour NOTES: CML SPECIAL LABS/ PROCESSING: None Pre-procedure labs: CBC: not needed INR: not needed COVID: not needed SIR Bleeding risk category for this procedure: low risk. Reference from [facility] Inhalation Therapy Aide: [email or web address] STAFF SIGNATURE: Jessee Jung MD DATE: December 15, 2023 TIME: 4:13 PM [facility] Work Phone: 12-15-2023 Telephone encounter Note BX. [...] mg by mouth. flash glucose sensor (FREESTYLE CARLITOS 2 SENSOR) kit USE DIRECTED EVERY 14 DAYS lisinopril (ZESTRIL) 20 mg tablet Take 20 mg by mouth once daily. insulin glargine (LANTUS SOLOSTAR U-100 INSULIN) 100 unit/mL (3 mL) Inject 35 Units subcutaneously twice daily. flash glucose scanning reader (FREESTYLE CARLITOS 2 READER) Check glucose 4 times daily [...] DATE: December 15, 2023 TIME: 3:00 PM [facility] 12-15-2023 Telephone encounter Note STAFF-INITIATED RADIOLOGY BIOPSY [...] REQUESTS: TISSUE SAMPLE, LABWORK: Special Requests: trial ki CGNT 1919 MEDICAL DIAGNOSIS: CML (i.e. Known primary cancer or suspected diagnosis) IMAGING STUDY AND DATE THAT IS THE BASIS OF THE REQUEST: IR needed for bone marrow biopsy and aspiration (Note: Requests for random organ biopsies, specifically liver and kidney random biopsies do not need imaging.) IMAGING: n/a (If the imaging was obtained outside the [facility] system, PLEASE upload for review prior to approval.) Note to all persons requesting biopsies: All biopsy requests will be scheduled as quickly as possible, based on the clinical urgency, availability of appointment times, the need to hold anti-thrombolytic therapy (aspirin and other blood thinners) and the patient s schedule, including the need for an available distribution driver. If a percutaneous biopsy or drainage is not felt to be safe or an alternative method for establishing a diagnosis is possible, this will be discussed directly with the requesting physician. [facility] 10-29-2023 History of Present illness Narrative Images from the original note were not included. [facility] [address] [place], [place] [id number] Derrell Avitia Jr. Date of visit: 10/29/2023 Date of : 1970 Age: 53 y.o. Referring : Rolf Chung, SALES AGENT CASUALTY INSURANCE-EAR NOSE THROAT PHYSICIAN [address] [place] [address] Chief Complaint Chief Complaint Patient presents with [...] cardiac standpoint. He had an echocardiogram in [place] that was performed due to study drug for CML which had reported increased wall thickness. He is otherwise still planning on going through his shoulder surgery in [place]. Previous HCM Detailed History Past Medical History Past Medical History: Diagnosis Date CML (chronic myelocytic leukemia) ([facility]) Diabetes mellitus type 2, controlled ([facility]) Hyperlipidemia Hypertension Rash Sleep [...] total) by mouth in the morning. FREESTYLE CARLITOS 2 SENSOR kit every 14 (fourteen) days. [...] Med Name: trial chemo drug, unknown name [id number] pravastatin (PRAVACHOL) 40 mg tablet Take 1 tablet (40 mg total) by mouth in the morning. No current facility-administered medications for this visit. Allergies @CLARA@ Review of Systems Review of Systems Constitutional: [...] Reported septal thickness of 20 mm on [facility] echocardiogram. Technically difficult echocardiogram over the years.Cardiac MRI through [facility] with no substantial LVH, however. Mid septum was 13 mm and most significant area. CML HTN Dilated aorta/thoracic aneurysm 4.3 cm 04/2023 Syncopal episode 4 years ago Unremarkable Holter monitor 06/2023 His cardiac MRI does not have anything definitive for hypertrophic cardiomyopathy. I told him that over time, wall thickness can certainly increase in something may declare itself but it appears measurement at [facility] was suboptimal. He does not have typical [...] study echocardiogram that are being done through [place]. I have asked him to contact our [...] to pt's MyChart. documented in this encounter [facility] 10-28-2023 History of Present illness Narrative Please let Derrell know that per insurance preference, Farxiga was switched to Jardiance. Jardiance is in the same class of medications as Farxiga and has a similar mechanism of action. Per paperwork received, Jardiance is the preferred formulary medication. Thank you. Meg Chowdhury APRN.EAR NOSE THROAT PHYSICIAN documented in this encounter [facility] 10-24-2023 Telephone encounter Note Images from the original note were not included. See MyChart message with patient regarding if patient has tried either of these medications. [facility] 10-24-2023 Miscellaneous Notes Images from the original note were not included. See MyChart message with patient regarding if patient has tried either of these medications. Called [phone] for Prior Auth update. Answered additional clinical questions. Rep by the name of Abdiaziz states a determination will be available between 24-72 hours. Prior Auth#: [id number] Images from the original note were not included. Received the following messgage from [facility]: Called [phone] and initiated verbal prior authorization with rep Abdiaziz. Prior Auth #: [id number]. Awaiting determination Prioe Auth initiated via covermymeds for Farxiga. Will await the determination. documented in this encounter [facility] 10-22-2023 Telephone encounter Note Called [phone] for Prior Auth update. Answered additional clinical questions. Rep by the name of Abdiaziz states a determination will be available between 24-72 hours. Prior Auth#: [id number] [facility] 10-20-2023 Telephone encounter Note Images from the original note were not included. Received the following messgage from [facility]: Called [phone] and initiated verbal prior authorization with rep Abdiaziz. Prior Auth #: [id number]. Awaiting determination [facility] 10-17-2023 Telephone encounter Note Bandar Auth initiated via covermymeds for Davidca. Will await the determination. [facility] 10-14-2023 Telephone encounter Note IRB# [id number]/[facility]# ARIA [id number]: Study Description A Randomized, Open-label, Phase 2 Trial of Ponatinib in Patients with Resistant Chronic Phase Chronic Myeloid Leukemia to Characterize the Efficacy and Safety of a Range of Doses Derrell Avitia [id number] Survival/Retirement Follow Up Call Retirement Follow Up performed every 12 weeks 14 days till 5 years, starting after the last dose of ponatinib or the principal investigator/patient decision to discontinue treatment--whichever occurs later. Chart Review for survival performed Raheem Santos, Research Coordinator . Patient was last seen Office visit on 10/01/2023 by William Howell MD, PhD Current treatment is Trial ACTG 1920 -taking INV [id number] associated with Clinical Trial Per sponsor email from this will be the last follow-up call for this trial. Patient knows to call in the interim for any questions or concerns. Raheem Santos, Research Coordinator T [facility] 10-14-2023 Miscellaneous Notes IRB# [id number]/[facility]# ARIA [id number]: Study Description A Randomized, Open-label, Phase 2 Trial of Ponatinib in Patients with Resistant Chronic Phase Chronic Myeloid Leukemia to Characterize the Efficacy and Safety of a Range of Doses Derrell Hsu René ESCOBEDO [id number] Survival/Retirement Follow Up Call Retirement Follow Up performed every 12 weeks 14 days till 5 years, starting after the last dose of ponatinib or the principal investigator/patient decision to discontinue treatment--whichever occurs later. Chart Review for survival performed Raheem Santos, Research Coordinator . Patient was last seen Office visit on 10/01/2023 by William Howell MD, PhD Current treatment is Trial ACTG 1920 -taking INV [id number] associated with Clinical Trial Per sponsor email from this will be the last follow-up call for this trial. Patient knows to call in the interim for any questions or concerns. Raheem Santos Research Coordinator documented in this encounter [facility] 10-01-2023 History of Present illness Narrative Summary: ACTG 1920 / 20-998 cycle 42 day 28 ACTG 1920 8 A phase 1b study of the pharmacokinetics, safety and efficacy of orally administered [id number] in subjects with refractory chronic myeloid leukemia (CML). Patient is here for screening for ACTG 1920 / IRB -8. He was diagnosed with [...] report. Patient reported that he saw a parer and is being treated for right heal [...] L4 and L5 infusion Prior to 03/2012 [place] ANESTH,KNEE JOINT; NOS right knee Prior to [...] 12/2014 -- 03/2016 Bosutinib 03/2016 - 05/02/2017 [facility] 2915 15-875 trial of Ponatinib 05/21/2017 - [...] weeks, then once daily for 2 weeks 7/16/74799 For rash. Do not apply to face, armpits or groin Colace 100 mg orally once a day as needed 06/07/2021 Constipation Norvasc 10 mg orally once a day 05/13/2022 03/20/2023 Blood pressure Norvasc 5 mg orally once a day 03/20/2023 Blood pressure Lispro (insulin) 10 units sq at breakfast and lunch, 14 units sq at dinner 05/2022 Diabetes Ava 5/325 mg 1 tab PO x 1 [...] on 04/17/2023 then every other day. Lot# [id number] Patient aware next appointment is 12/24/2023 and can be viewed on ponUp. Patient presented today to participate on the [...] nurse's contact information and after hours fellows office automation clerk. Patient understands that this participation is voluntary and that he may withdraw at any time during the trial. Paula Tuttle RN, OCN documented in this encounter [facility] 10-01-2023 History of Present illness Narrative CRC Documentation IRB#: [id number], [facility]#: ACTG 1920, Study Title: A phase 1b study of the pharmacokinetics, safety and efficacy of orally administered [id number] in subjects with refractory chronic myeloid leukemia [...] completed: No-Completed by Ludy Mead OCCA EKGs ([facility]): Yes Given to RN/Paula Lemus RN for review. 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 Metaphase cytogenetics showed presence of t(9;22) in [...] pharmacokinetics, safety and efficacy of orally administered [id number] in subjects with refractory chronic myeloid leukemia [...] motor strength. Psychiatric: Memory, short term & director long term care intact; no disturbance in sleep pattern and [...] > 10 years Current medication: Reviewed from [facility] and integrated in assessment and plan. Social History: He is . 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 He does not smoke cigarettes and has [...] edema Labs: CBC with differential reviewed from [facility] from 01/22/2023 and integrated in assessment and plan. William Howell MD PhD MPH Associate Staff Hematologic Oncology and Blood Disorders Pager [phone] Date of service: 10/01/2023 I spent a total of 40 minutes on the date of the service which included preparing to see the patient, [id number] patient care, completing clinical documentation, obtaining and/or reviewing separately obtained history, performing a medically appropriate examination, counseling and educating the patient/family/caregiver, ordering medications, tests, or procedures, independently interpreting laboratory and imaging results (not separately reported), communicating results to the patient/family/caregiver, and care coordination (not separately reported). documented in this encounter [facility] 10-01-2023 Nurse Note Additional intake questions: Has the patient had fever, nausea, vomiting, diarrhea, constipation, fatigue for > 1 week? Yes, fatigue Does the patient have a decreased appetite? No Does patient want to see a Computer Hardware Designer? No (yes to any of above refer patient to schedulers for dietitian appointment) ) Does patient have any new or increased numbness or tingling of extremities? No Is patient interested in fertility information? No Does patient need any prescription refills? No Does patient have an advanced directive in place? No [facility] 10-01-2023 Nurse Note Additional intake questions: Has the patient had fever, nausea, vomiting, diarrhea, constipation, fatigue for > 1 week? Yes, fatigue Does the patient have a decreased appetite? No Does patient want to see a Computer Hardware Designer? No (yes to any of above refer patient to schedulers for dietitian appointment) ) Does patient have any new or increased numbness or tingling of extremities? No Is patient interested in fertility information? No Does patient need any prescription refills? No Does patient have an advanced directive in place? No documented in this encounter [facility] 09-10-2023 Miscellaneous Notes Left message on patient's answering machine to remind them of their appointment time and to bring a current list of medications with them. documented in this encounter [facility] 09-10-2023 Telephone encounter Note Left message on patient's answering machine to remind them of their appointment time and to bring a current list of medications with them. [facility] 08-29-2023 Instructions Alexx Dalal APRN.EAR NOSE THROAT PHYSICIAN - 08/29/2023 7:59 AM EDT Plan Continue: [...] in 6 months documented in this encounter [facility] 08-29-2023 History of Present illness Narrative Endocrinology Follow Up PCP: Rolf Chung CNP [facility] History of Present Illness Derrell Aracelis Avitia JR is a 52 year old male presents today for follow up of DM Type 2. At [facility] increased insulin and started Farxiga. Sugars [...] Pharm Subclass flash glucose scanning reader (FREESTYLE CARLITOS 2 READER) Check glucose 4 times daily Medical Supplies and DME - Glucose Monitoring Test Supplies flash glucose sensor (FREESTYLE CARLITOS 2 SENSOR) kit USE DIRECTED EVERY 14 [...] dose. Medical Supplies and DME - Insulin Coleman-Syringes and Admin Supplies omega-3 acid ethyl esters (LOVAZA) 1 gram capsule Take 2 capsules by mouth twice daily. Antihyperlipidemic - [place]-3 Fatty Acid Type Physical Activity: Sedentary Diet: Does not follow a diabetic diet, but making improvements recently SMBG Frequency of Monitorin times daily Summary of Personal CGM Findings: Dates worn: 08/12/23-08/25/23 CGM Type: Carlitos 1- CGM recording is adequate for interpretation. [...] Desk Reference: National Heart, Lung, and Blood [place]. National Institutes of Health. 2001: [facility] Publication No. . HDL Cholesterol Date Value Ref Range Status 05/13/2022 38 (L) >39 mg/dL Final Comment: 40-59 mg/dL, Acceptable >59 mg/dL, High: Negative risk factor for coronary heart disease <40 mg/dL, Low: Positive risk factor for coronary heart disease Reference: 1. National Cholesterol Education Program ATP III Guideline At-A-Glance Quick Desk Reference: National Heart, Lung, and Blood [place]. National Institutes of Health. 2001: [facility] Publication No. . LDL Cholesterol Date [...] Desk Reference: National Heart, Lung, and Blood [place]. National Institutes of Health. 2001: [facility] Publication No. . Latest Ref Rng 07/09/2023 [...] at the time of the patient encounter Alexx Dalal APRN.EAR NOSE THROAT PHYSICIAN (Signed electronically to expedite mailing) documented in this encounter [facility] 08-08-2023 History of Present illness Narrative [facility] Department of Hematologic Oncology and Blood Disorders PATIENT NAME: Derrell Avitia [facility] NO: [id number] Date of service: 07/07/2023 Reason for visit: Follow up of CML on clinical trial Diagnosis: 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 (imatinib, dasatinib, nilotinib, bosutinib and ponatinib) Current Treatment - On a clinical trial - ACTG 1920 20-998 Title: A phase 1b study of the pharmacokinetics, safety and efficacy of orally administered TPN4015 in subjects with refractory chronic myeloid leukemia [...] pharmacokinetics, safety and efficacy of orally administered [id number] in subjects with refractory chronic myeloid leukemia [...] same [place] [address], [place] [address], monocytosis (5700), 6700 lymphocytes, 500 basophils and thrombocytopenia with platelets at 977513. Metaphase cytogenetics showed presence of t(9;22) in [...] pharmacokinetics, safety and efficacy of orally administered [id number] in subjects with refractory chronic myeloid leukemia [...] motor strength. Psychiatric: Memory, short term & [place] [facility] intact; no disturbance in sleep pattern and [...] > 10 years Current medication: Reviewed from [facility] and integrated in assessment and plan. Social History: He is . 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 He does not smoke cigarettes and has [...] edema Labs: CBC with differential reviewed from [facility] from 01/22/2023 and integrated in assessment and plan. William Howell MD PhD MPH Associate Staff Hematologic Oncology and Blood Disorders Pager [phone] Date of service: 07/07/2023 documented in this encounter [facility] 07-09-2023 Nurse Note Additional intake questions: Has the patient had fever, nausea, vomiting, diarrhea, constipation, fatigue for > 1 week? Yes, fatigue Does the patient have a decreased appetite? No Does patient want to see a Computer Hardware Designer? No (yes to any of above refer patient to schedulers for dietitian appointment) ) Does patient have any new or increased numbness or tingling of extremities? No Is patient interested in fertility information? No Does patient need any prescription refills? No Does patient have an advanced directive in place? No, documented in this encounter [facility] 06-30-2023 History of Present illness Narrative Images from the original note were not included. [facility] [place] [address] Derrell Avitia . Date of visit: 06/30/2023 Date of : 1970 Age: 52 y.o. 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 He is getting getting screening echocardiogram due to a trial drug for CML every 3 months at [facility]. His more recent echocardiogram showed LVH that [...] have been less of an issue since . He was recently started on amlodipine. He has not noticed any worsening symptoms. Previous HCM Detailed History Past Medical History Past Medical History: Diagnosis Date CML (chronic myelocytic leukemia) ([facility]) Diabetes mellitus type 2, controlled ([facility]) Hyperlipidemia Hypertension Rash Sleep [...] total) by mouth in the morning. FREESTYLE CARLITOS 2 SENSOR kit every 14 (fourteen) days. [...] Med Name: trial chemo drug, unknown name [id number] pravastatin (PRAVACHOL) 40 mg tablet Take 1 tablet (40 mg total) by mouth in the morning. No current facility-administered medications for this visit. Allergies [facility]@ Review of Systems Review of Systems Constitutional: [...] mm at the discretion of the treating antisqueak worker) : Sudden cardiac in one or greater [...] Reported septal thickness of 20 mm on [facility] echocardiogram. Technically difficult echocardiogram over the [...] his follow-up echocardiogram which is planned in [place] or on cardiac MRI, I would likely [...] and I do not think it will private branch exchange installer. He may have some increased propensity for dynamic LV outflow track obstruction. If he would become hypotensive during the procedure, would aggressively hydrate him and if a pressor was ever needed, Addison-Synephrine should be chosen. However, I think he can undergo his surgery in [place] given his lack of symptoms otherwise and [...] questions or concerns. 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 (imatinib, dasatinib, nilotinib, bosutinib and ponatinib) Current Treatment - On a clinical trial - ACTG 1920 8 Title: A phase 1b study of the pharmacokinetics, safety and efficacy of orally administered [id number] in subjects with refractory chronic myeloid leukemia [...] the CML clinical trial - ACTG 1920 8 Title: A phase 1b study of the pharmacokinetics, safety and efficacy of orally administered [id number] in subjects with refractory chronic myeloid leukemia [...] same date [place] [address] [address], monocytosis (5700), 6700 lymphocytes, 500 basophils and thrombocytopenia with platelets at 103115. Metaphase cytogenetics showed presence of t(9;22) in [...] pharmacokinetics, safety and efficacy of orally administered [id number] in subjects with refractory chronic myeloid leukemia [...] motor strength. Psychiatric: Memory, short term & director long term care intact; no disturbance in sleep pattern and [...] > 10 years Current medication: Reviewed from [facility] and integrated in assessment and plan. Social History: He is . 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 He does not smoke cigarettes and has [...] edema Labs: CBC with differential reviewed from [facility] from 01/22/2023 and integrated in assessment and plan. William Howell MD PhD MPH Associate Staff Hematologic Oncology and Blood Disorders Pager [phone] Date of service: 04/16/2023 documented in this encounter [facility] 05-20-2023 Miscellaneous Notes IRB# [id number]/[facility]# ARIA [id number]: Study Description A Randomized, Open-label, Phase 2 Trial of Ponatinib in Patients with Resistant Chronic Phase Chronic Myeloid Leukemia to Characterize the Efficacy and Safety of a Range of Doses Derrell Avitia [id number] Survival/Tongue Lining Stitcher Follow Up Call Tongue Lining Stitcher Follow Up performed every 12 weeks 14 days till 5 years, starting after the last dose of ponatinib or the principal investigator/patient decision to discontinue treatment--whichever occurs later. [...] Santos, Research Coordinator documented in this encounter [facility] 04-16-2023 History of Present illness Narrative Summary: ACTG 1920 / 20-998 cycle 36 day 28 ACTG 1920 20-998 A phase 1b study of the pharmacokinetics, safety and efficacy of orally administered [id number] in subjects with refractory chronic myeloid leukemia [...] Prior to 03/2012 L4 and L5 infusion GA ANESTH,KNEE JOINT; NOS right Prior to 03/2012Prior [...] 12/2014 -- 03/2016 Bosutinib 03/2016 - 05/02/2017 [facility] 2915 15-875 trial of Ponatinib 05/21/2017 - [...] 14 units sq at dinner 05/2022 Diabetes Ava 5/325 mg 1 tab PO x 1 [...] on 04/17/2023 then every other day. Lot# [id number] Patient aware next appointment 07/08/2023, will appear on ponUp when processed. Patient presented today to participate [...] nurse's contact information and after hours fellows office automation clerk. Patient understands that this participation is voluntary and that he may withdraw at any time during the trial. Paula Tuttle RN, OCN documented in this encounter [facility] 04-16-2023 Nurse Note Additional intake questions: Has the patient had fever, nausea, vomiting, diarrhea, constipation, fatigue for > 1 week? Yes, constipation (day of last BM 04/15/23) and fatigue Does the patient have a decreased appetite? No Does patient want to see a Computer Hardware Designer? No (yes to any of above refer patient to schedulers for dietitian appointment) ) Does patient have any new or increased numbness or tingling of extremities? Yes, feet Is patient interested in fertility information? No Does patient need any prescription refills? No Does patient have an advanced directive in place? No, Patient referred to [facility] documented in this encounter [facility] 03-21-2023 Miscellaneous Notes Last office visit 10/15/22 Future appt scheduled 04/17/23 Last A1C 01/22/23 documented in this encounter [facility] 02-03-2023 Miscellaneous Notes IRB# [id number]/[facility]# ARIA [id number]: Study Description A Randomized, Open-label, Phase 2 Trial of Ponatinib in Patients with Resistant Chronic Phase Chronic Myeloid Leukemia to Characterize the Efficacy and Safety of a Range of Doses Derrell Avitia JR [id number] Survival/Retirement Follow Up Call Retirement Follow Up performed every 12 weeks 14 days till 5 years, starting after the last dose of ponatinib or the principal investigator/patient decision to discontinue treatment--whichever occurs later. Chart Review for survival performed Raheem Santos, Research Coordinator . Patient was last seen in clinic on 01/22/2023 by Paula Tuttle RN. Current treatment is Trial ACTG 1920. Next survival f/u due 04/28/2023. Patient aware that next follow up call will occur on 04/28/2023. Patient knows to call in the interim for any questions or concerns. Raheem Santos, Research Coordinator February 03, 2023 12:16 PM documented in this encounter [facility] 01-24-2023 Miscellaneous Notes Spoke to pt and [...] for this procedure: low risk. Reference from [facility] Inhalation Therapy Aide: [email or web address]://[email or web address] [email or web address]/dotNet/doc uments/?[email or web address] STAFF SIGNATURE: Shaggy Kaur MD DATE: January [...] mouth once daily. flash glucose sensor (FREESTYLE CARLITOS 2 SENSOR) kit Check glucose 4 times daily flash glucose scanning reader (FREESTYLE CARLITOS 2 READER) Check glucose 4 times daily [...] CONTACT INFORMATION: Best way to reach patient [phone] SCHEDULING: Date: 04/18/2023 (Specific requests must be [...] random biopsies do not need imaging.) IMAGING: [facility] (If the imaging was obtained outside the [facility] system, PLEASE upload for review prior to approval.) Note to all persons requesting biopsies: All biopsy requests will be scheduled as quickly as possible, based on the clinical urgency, availability of appointment times, the need to hold anti-thrombolytic therapy (aspirin and other blood thinners) and the patient s schedule, including the need for an available distribution driver. If a percutaneous biopsy or drainage is not felt to be safe or an alternative method for establishing a diagnosis is possible, this will be discussed directly with the requesting physician. documented in this encounter [facility] 01-22-2023 History of Present illness Narrative Summary: ACTG 1920 / 20-998 cycle 33 day 28 ACTG 192 A phase 1b study of the pharmacokinetics, safety and efficacy of orally administered [id number] in subjects with refractory chronic myeloid leukemia [...] floaters in both eyes (eye exam 05/05) [id number] Active no medication or treatment Diabetes 12/2019 Active controlled with medication Rash 11/2019 Active uncontrolled,medication to start 05/29/2020 PAST SURGICAL HISTORY Procedure Laterality Date BACK SURGERY HX Prior to 03/2012 L4 and L5 infusion GA ANESTH,KNEE JOINT; NOS right Prior to 03/2012Prior [...] 12/2014 -- 03/2016 Bosutinib 03/2016 - 05/02/2017 [facility] 2915 15-875 trial of Ponatinib 05/21/2017 - [...] 14 units sq at dinner 05/2022 Diabetes Ava 5/325 mg 1 tab PO x 1 [...] HQP on 01/23/2023 every other day. Lot# [id number] Patient aware next appointment is 11/01/2022 for bone marrow biopsy and he reports he has [facility] for appointments. Patient presented today to participate [...] nurse's contact information and after hours fellows office automation clerk. Patient understands that this participation is voluntary and that he may withdraw at any time during the trial. 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 Metaphase cytogenetics showed presence of t(9;22) in [...] pharmacokinetics, safety and efficacy of orally administered LSL2693 in subjects with refractory chronic myeloid leukemia [...] motor strength. Psychiatric: Memory, short term & director long term care intact; no disturbance in sleep pattern and [...] > 10 years Current medication: Reviewed from [employer] and integrated in assessment and plan. Social History: He is . 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 He does not smoke cigarettes and has [...] edema Labs: CBC with differential reviewed from [facility] from 01/22/2023 and integrated in assessment and plan. William Howell MD PhD MPH Associate Staff Hematologic Oncology and Blood Disorders Pager [phone] Date of service: 01/22/2023 documented in this encounter [facility] 01-22-2023 Nurse Note Additional intake questions: Has the patient had fever, nausea, vomiting, diarrhea, constipation, fatigue for > 1 week? No Does the patient have a decreased appetite? No Does patient want to see a Computer Hardware Designer? No (yes to any of above refer patient to schedulers for dietitian appointment) ) Does patient have any new or increased numbness or tingling of extremities? Yes, bilateral feet per patient Is patient interested in fertility information? No Does patient need any prescription refills? No Does patient have an advanced directive in place? No, Patient referred to [facility] Electronically Signed By: Marcelino Finney LPN documented in this encounter [facility] 12-06-2022 History of Present illness Narrative [facility] Department of Hematologic Oncology and Blood Disorders PATIENT NAME: Derrell HOGAN NO: [id number] Date of service:10/30/2022 Reason for visit: Follow up of CML on clinical trial Diagnosis: 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 (imatinib, dasatinib, nilotinib, bosutinib and ponatinib) Current Treatment - On a clinical trial - ACTG 1920 -998 Title: A phase 1b study of the pharmacokinetics, safety and efficacy of orally administered [id number] in subjects with refractory chronic myeloid leukemia [...] the CML clinical trial - ACTG 1920 -8 Title: A phase 1b study of the pharmacokinetics, safety and efficacy of orally administered HEM5525 in subjects with refractory chronic myeloid leukemia [...] same [place] [address], [place] [address], monocytosis (5700), 6700 lymphocytes, 500 basophils and thrombocytopenia with platelets at 395770. Metaphase cytogenetics showed presence of t(9;22) in [...] and consented for the clinical trial - [facility] 1920 20-998 Title: A phase 1b study of the pharmacokinetics, safety and efficacy of orally administered VEG0444 in subjects with refractory chronic myeloid leukemia [...] motor strength. Psychiatric: Memory, short term & director long term care intact; no disturbance in sleep pattern and [...] > 10 years Current medication: Reviewed from [employer] and integrated in assessment and plan. Social History: He is . 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 He does not smoke cigarettes and has [...] edema Labs: CBC with differential reviewed from [employer] and integrated in assessment and plan. William Howell MD PhD MPH Associate Staff Hematologic Oncology and Blood Disorders Pager [phone] Date of service: 10/30/2022 documented in this encounter [facility] 10-30-2022 Nurse Note Additional intake questions: Has [...] or Resource Center documented in this encounter [facility] 10-16-2022 Note ------ Attestation signed by Angus [...] be an additional personal documentation from me. [facility] 10-15-2022 Instructions Alexx Dalal APRN.DOMINIC - 10/15/2022 2:06 PM EDT [...] in 3 months documented in this encounter [facility] 10-15-2022 History of Present illness Narrative Endocrinology Follow Up PCP: Rolf Chung [facility] History of Present Illness [...] Pharm Subclass flash glucose scanning reader (FREESTYLE CARLITOS 2 READER) Check glucose 4 times daily Medical Supplies and DME - Glucose Monitoring Test Supplies flash glucose sensor (FREESTYLE CARLITOS 2 SENSOR) kit Check glucose 4 times [...] dose. Medical Supplies and DME - Insulin Coleman-Syringes and Admin Supplies omega-3 acid ethyl esters (LOVAZA) 1 gram capsule Take 2 capsules by mouth twice daily. Antihyperlipidemic - Mil[place]-3 Fatty Acid Type Physical Activity: Sedentary Diet: Does not follow a diabetic diet, but making improvements recently SMBG Frequency of Monitorin times daily Summary of Personal CGM Findings: Dates worn: 10/02/2022-10/15/2022 CGM Type: Carlitos 1- CGM recording is adequate for interpretation. [...] Desk Reference: National Heart, Lung, and Blood [place]. National Institutes of Health. 2001: [facility] Publication No. . HDL Cholesterol Date Value Ref Range Status 05/13/2022 38 (L) >39 mg/dL Final Comment: 40-59 mg/dL, Acceptable >59 mg/dL, High: Negative risk factor for coronary heart disease <40 mg/dL, Low: Positive risk factor for coronary heart disease Reference: 1. National Cholesterol Education Program ATP III Guideline At-A-Glance Quick Desk Reference: National Heart, Lung, and Blood [place]. National Institutes of Health. 2001: [facility] Publication No. . LDL Cholesterol Date [...] Desk Reference: National Heart, Lung, and Blood [place]. National Institutes of Health. 2001: [facility] Publication No. . -- This patient is [...] at the time of the patient encounter Alexx Dalal APRN.EAR NOSE THROAT PHYSICIAN (Signed electronically to expedite mailing) documented in this encounter [facility] 09-06-2022 History of Present illness Narrative [facility] Department of Hematologic Oncology and Blood Disorders PATIENT NAME: Derrell Hsu [facility] NO: [id number] Date of service: 08/05/2022 Reason for visit: Follow up of CML on clinical trial Diagnosis: 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 (imatinib, dasatinib, nilotinib, bosutinib and ponatinib) Current Treatment - On a clinical trial - ACTG 1920 20-998 Title: A phase 1b study of the pharmacokinetics, safety and efficacy of orally administered [id number] in subjects with refractory chronic myeloid leukemia [...] He started the CML clinical trial - [facility] 1920 20-998 Title: A phase 1b study of the pharmacokinetics, safety and efficacy of orally administered BXO8862 in subjects with refractory chronic myeloid leukemia [...] same [place] [address], [place] [address], monocytosis (5700), 6700 lymphocytes, 500 basophils and thrombocytopenia with platelets at 921478. Metaphase cytogenetics showed presence of t(9;22) in [...] pharmacokinetics, safety and efficacy of orally administered CXE2375 in subjects with refractory chronic myeloid leukemia [...] motor strength. Psychiatric: Memory, short term & [place] [facility] intact; no disturbance in sleep pattern and [...] > 10 years Current medication: Reviewed from [facility] and integrated in assessment and plan. Social History: He is . 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 He does not smoke cigarettes and has [...] edema Labs: CBC with differential reviewed from [facility] and integrated in assessment and plan. William Howell MD PhD MPH Associate Staff Hematologic Oncology and Blood Disorders Pager [phone] Date of service: 08/05/2022 Additional intake questions: Has the patient had fever, nausea, vomiting, diarrhea, constipation, fatigue for > 1 week? No Does the patient have a decreased appetite? No Does patient want to see a Computer Hardware Designer? No (yes to any of above refer patient to schedulers for dietitian appointment) ) Does patient have any new or increased numbness or tingling of extremities? No Is patient interested in fertility information? No Does patient need any prescription refills? No Does patient have an advanced directive in place? No, Patient referred to [facility] documented in this encounter [facility] 08-15-2022 Miscellaneous Notes Spoke to Pt scheduled [...] for this procedure: low risk. Reference from [facility] Inhalation Therapy Aide: [email or web address]/dotNet/doc [email or web address] STAFF SIGNATURE: Jonathan Brasher MD DATE: August [...] mouth once daily. flash glucose sensor (FREESTYLE CARLITOS 2 SENSOR) kit Check glucose 4 times daily flash glucose scanning reader (FREESTYLE CARLITOS 2 READER) Check glucose 4 times daily [...] CONTACT INFORMATION: Best way to reach patient [phone] SCHEDULING: Date: 10/28/2022 (Specific requests must be [...] (If the imaging was obtained outside the [facility] system, PLEASE upload for review prior to approval.) Note to all persons requesting biopsies: All biopsy requests will be scheduled as quickly as possible, based on the clinical urgency, availability of appointment times, the need to hold anti-thrombolytic therapy (aspirin and other blood thinners) and the patient s schedule, including the need for an available distribution driver. If a percutaneous biopsy or drainage is not felt to be safe or an alternative method for establishing a diagnosis is possible, this will be discussed directly with the requesting physician. documented in this encounter [facility] 08-05-2022 History of Present illness Narrative Summary: ACTG 1920/20-998 Cycle 27 day 28 visit ACTG 1920 20-998 A phase 1b study of the pharmacokinetics, safety and efficacy of orally administered [id number] in subjects with refractory chronic myeloid leukemia [...] pain to left hand. Pt was prescribed Ava but he never got it filled. He [...] Prior to 03/2012 L4 and L5 infusion GA ANESTH,KNEE JOINT; NOS right Prior to 03/2012Prior [...] 12/2014 -- 03/2016 Bosutinib 03/2016 - 05/02/2017 [facility] 2915 15-875 trial of Ponatinib 05/21/2017 - [...] 14 units sq at dinner 05/2022 Diabetes Ava 5/325 mg 1 tab PO x 1 [...] HQP on 08/06/2022 every other day. Lot# [id number] Patient aware next appointment is 10/30/2022 and he reports he has [facility] for appointments. Patient presented today to participate [...] nurse's contact information and after hours fellows office automation clerk. Patient understands that this participation is voluntary and that he may withdraw at any time during the trial. ОЛЬГА Cabrera, RN documented in this encounter [facility] 07-30-2022 History of Present illness Narrative Images from the original note were not included. DIABETES SELF-MANAGEMENT EDUCATION AND SUPPORT Location: [place] Type of visit: In person individual Types [...] stress on BG DIABETES ASSESSMENT: Referring Physician: Alexx Dalal Previous Diabetes Education? 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 flash glucose sensor (FREESTYLE CARLITOS 2 SENSOR) kit Check glucose 4 times daily flash glucose scanning reader (FREESTYLE CARLITOS 2 READER) Check glucose 4 times daily [...] have a blood sugar monitor? No Freestyle carlitos 2 Management of Low Blood Sugar: What [...] 10:13 AM PAGER: documented in this encounter [facility] 07-26-2022 History of Present illness Narrative IRB# [id number] /[facility]# ARIA [id number] : Study Description A Randomized, Open-label, Phase 2 Trial of Ponatinib in Patients with Resistant Chronic Phase Chronic Myeloid Leukemia to Characterize the Efficacy and Safety of a Range of Doses Derrell Avitia JR [id number] Survival/Retirement Follow Up Call Retirement Follow Up performed every 12 Weeks +- 2 weeks Chart Review for survival performed Raheem Santos, Research Coordinator . Patient was last seen in clinic on 07/15/2022 by Clare Dalal APRN.EAR NOSE THROAT PHYSICIAN. Next survival f/u due 10/07/2022. Raheem Santos, Research Coordinator documented in this encounter [facility] 07-15-2022 Instructions Alexx Dalal APRN.CNP - 07/15/2022 4:05 PM EST Plan Continue: [...] in 3 months documented in this encounter [facility] 07-15-2022 History of Present illness Narrative Endocrinology Follow Up History of Present Illness Derrell Avitia JR is a 51 year old male presents today for evaluation of DM Type 2. Since last OV we started mealtime insulin. He has been using Carlitos. Sugars remain elevated. Having some neuropathy- doesn't [...] Pharm Subclass flash glucose scanning reader (FREESTYLE CARLITOS 2 READER) Check glucose 4 times daily Medical Supplies and DME - Glucose Monitoring Test Supplies flash glucose sensor (FREESTYLE CARLITOS 2 SENSOR) kit Check glucose 4 times [...] dose. Medical Supplies and DME - Insulin Coleman-Syringes and Admin Supplies meloxicam (MOBIC) 7.5 mg tablet meloxicam 7.5 mg tablet NSAID Analgesics (DE SOUZA Non-Specific) - Oxicam Derivatives omega-3 acid ethyl esters (LOVAZA) 1 gram capsule Take 2 capsules by mouth twice daily. Antihyperlipidemic - [place]-3 Fatty Acid Type Physical Activity: Sedentary Diet: No specific diet regimen SMBG Frequency of Monitorin times daily Summary of Personal CGM Findings: Dates worn: 06/04/2022-06/17/2022 CGM Type: Carlitos 1- CGM recording is adequate for interpretation. [...] Desk Reference: National Heart, Lung, and Blood [place]. National Institutes of Health. 2001: [facility] Publication No. 3305. HDL Cholesterol Date Value Ref Range Status 05/13/2022 38 (L) >39 mg/dL Final Comment: 40-59 mg/dL, Acceptable >59 mg/dL, High: Negative risk factor for coronary heart disease <40 mg/dL, Low: Positive risk factor for coronary heart disease Reference: 1. National Cholesterol Education Program ATP III Guideline At-A-Glance Quick Desk Reference: National Heart, Lung, and Blood [place]. National Institutes of Health. 2001: NIH Publication No. 330. LDL Cholesterol Date Value Ref Range Status [...] Desk Reference: National Heart, Lung, and Blood [place]. National Institutes of Health. 2001: NIH Publication No. 01-3305. -- This patient is [...] at the time of the patient encounter Alexx Dalal APRN.DOMINIC (Signed electronically to expedite mailing) documented in this encounter [facility] 05-07-2022 Miscellaneous Notes Sensor placed at front desk officer. Patient notified Patient states he does not have Freestyle carlitos sensor. He is requesting call back to be advised if ENDO has sample freestyle sensor device patient can use until next sensor can be covered by pt insurance. Please advise. [phone] documented in this encounter [facility] 03-19-2022 Instructions Alexx Dalal APRN.DOMINIC - 03/19/2022 1:06 PM EDT [...] in 3 months documented in this encounter [facility] 03-19-2022 History of Present illness Narrative Endocrinology Initial Diabetes Assessment Derrell Avitia JR is here for a consultation regarding: DM Type 2 My final recommendations will be communicated back to the requesting physician by way of shared Medical record or letter to requesting physician via US mail. PCP is MD Aman Bradford MD ([facility]) [address] [place] [address] History of Present Illness Derrell Avitia JR [...] dose. Medical Supplies and DME - Insulin Coleman-Syringes and Admin Supplies meloxicam (MOBIC) 7.5 mg tablet meloxicam 7.5 mg tablet NSAID Analgesics (DE SOUZA Non-Specific) - Oxicam Derivatives omega-3 acid ethyl esters (LOVAZA) 1 gram capsule Take 2 capsules by mouth twice daily. Antihyperlipidemic - [place]-3 Fatty Acid Type Physical Activity: Sedentary Diet: [...] Discussed other insulin injection sites, rotating sites Carliots 2 order sent to pharmacy- advised to let us know if this needs to go to DME Carlitos 2 sample provided Plan for patient to [...] Desk Reference: National Heart, Lung, and Blood [place]. National Institutes of Health. 2001: [facility] Publication No. 01-3305. HDL Cholesterol Date Value Ref Range Status 02/18/2022 36 (L) >39 mg/dL Final Comment: 40-59 mg/dL, Acceptable >59 mg/dL, High: Negative risk factor for coronary heart disease <40 mg/dL, Low: Positive risk factor for coronary heart disease Reference: 1. National Cholesterol Education Program ATP III Guideline At-A-Glance Quick Desk Reference: National Heart, Lung, and Blood [place]. National Institutes of Health. 2001: [facility] Publication No. -3305. LDL Cholesterol Date Value [...] Desk Reference: National Heart, Lung, and Blood [place]. National Institutes of Health. 2001: [facility] Publication No. 01-3305. -- No recent [...] at the time of the patient encounter Alexx Dalal APRN.EAR NOSE THROAT PHYSICIAN (Signed electronically to expedite mailing) documented in this encounter [facility] 03-14-2022 History of Present illness Narrative [facility] Department of Hematologic Oncology and Blood Disorders PATIENT NAME: Derrell Avitia [facility] NO: [id number] Date of service: 02/18/2022 Reason for visit: Follow up of CML on clinical trial Diagnosis: 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 (imatinib, dasatinib, nilotinib, bosutinib and ponatinib) Current Treatment - On a clinical trial - ACTG 1920 -998 Title: A phase 1b study of the pharmacokinetics, safety and efficacy of orally administered [id number] in subjects with refractory chronic myeloid leukemia [...] the CML clinical trial - ACTG 1920 -998 Title: A phase 1b study of the pharmacokinetics, safety and efficacy of orally administered [id number] in subjects with refractory chronic myeloid leukemia [...] same [place] [address], [place] [address], monocytosis (5700), 6700 lymphocytes, 500 basophils and thrombocytopenia with platelets at 472685. Metaphase cytogenetics showed presence of t(9;22) in [...] and consented for the clinical trial - [facility] 1920 20-998 Title: A phase 1b study of the pharmacokinetics, safety and efficacy of orally administered [id number] in subjects with refractory chronic myeloid leukemia [...] motor strength. Psychiatric: Memory, short term & [place] [facility] intact; no disturbance in sleep pattern and [...] > 10 years Current medication: Reviewed from [facility] and integrated in assessment and plan. Social History: He is . 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 He does not smoke cigarettes and has [...] edema Labs: CBC with differential reviewed from [facility] and integrated in assessment and plan. William Howell MD PhD MPH Associate Staff Hematologic Oncology and Blood Disorders Pager [phone] Date of service: 02/18/2022 documented in this encounter [facility] 02-19-2022 History of Present illness Narrative ACTG 1920 20-998 A phase 1b study of the pharmacokinetics, safety and efficacy of orally administered [id number] in subjects with refractory chronic myeloid leukemia [...] appt next week for his right knee. Waste Removalist appt will be requested again for the patient to be seen in [place]. Patient in agreement with the plan of [...] Diagnosis Date Status CML (chronic myelocytic leukemia) ([facility]) 12/2011 Active chronic phase not controlled Hypertension [...] floaters in both eyes (eye exam 05/05) 375967 Active no medication or treatment Diabetes 12/2019 Active controlled with medication Rash 11/2019 Active uncontrolled,medication to start 05/29/2020 PAST SURGICAL HISTORY Procedure Laterality Date BACK SURGERY HX Prior to 03/2012 L4 and L5 infusion GA ANESTH,KNEE JOINT; NOS right Prior to 03/2012Prior [...] 12/2014 -- 03/2016 Bosutinib 03/2016 - 05/02/2017 [facility] 2915 15-875 trial of Ponatinib 05/21/2017 - [...] HQP on 02/19/2022 every other day. Lot# [id number] Patient presented today to participate on the [...] nurse's contact information and after hours fellows office automation clerk. Patient understands that this participation is voluntary and that he may withdraw at any time during the trial. documented in this encounter [facility] 02-18-2022 Nurse Note Additional intake questions: Has the patient had fever, nausea, vomiting, diarrhea, constipation, fatigue for > 1 week? Yes, constipation (day of last BM 02/17/2022) and fatigue Does the patient have a decreased appetite? No Does patient want to see a Computer Hardware Designer? No (yes to any of above refer patient to schedulers for dietitian appointment) ) Does patient have any new or increased numbness or tingling of extremities? No Is patient interested in fertility information? No Does patient need any prescription refills? No Does patient have an advanced directive in place? No, Patient referred to [facility] documented in this encounter [facility] 01-17-2022 Miscellaneous Notes Spoke to pt and scheduled biopsy for 05/16/22. Order pending RADIOLOGIST REQUEST / APPROVAL FORM STAFF RADIOLOGIST:Dr Alan Hernandez MD PROCEDURE TO BE DONE UNDER: CT PROCEDURE REQUESTED: Aspiration PROCEDURE: Approved TIME SLOT NEEDED: 1 Hour Pre-procedure labs: CBC: not needed INR: not needed COVID: not needed SIR Bleeding risk category for this procedure: Low risk. Reference from [facility] Inhalation Therapy Aide: [email or web address] STAFF SIGNATURE: Yenifer Cox MD DATE: January [...] 2022 Time: 4:34 PM PATIENT CONTACT INFORMATION: [phone] SCHEDULING: Date: May 16, 2022 (Specific requests [...] (If the imaging was obtained outside the [facility] system, PLEASE upload for review prior to approval.) Note to all persons requesting biopsies: All biopsy requests will be scheduled as quickly as possible, based on the clinical urgency, availability of appointment times, the need to hold anti-thrombolytic therapy (aspirin and other blood thinners) and the patient s schedule, including the need for an available distribution driver. If a percutaneous biopsy or drainage is not felt to be safe or an alternative method for establishing a diagnosis is possible, this will be discussed directly with the requesting physician. documented in this encounter [facility] 01-10-2022 History of Present illness Narrative [facility] Department of Hematologic Oncology and Blood Disorders PATIENT NAME: Derrell Avitia [facility] NO: [id number] Date of service: 11/26/2021 Reason for visit: Follow up of CML on clinical trial Diagnosis: 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 (imatinib, dasatinib, nilotinib, bosutinib and ponatinib) Current Treatment - On a clinical trial - ACTG 1920 20-998 Title: A phase 1b study of the pharmacokinetics, safety and efficacy of orally administered [id number] in subjects with refractory chronic myeloid leukemia [...] pharmacokinetics, safety and efficacy of orally administered [id number] in subjects with refractory chronic myeloid leukemia [...] same [place] [address], [place] [address], monocytosis (5700), 6700 lymphocytes, 500 basophils and thrombocytopenia with platelets at 080079. Metaphase cytogenetics showed presence of t(9;22) in [...] and consented for the clinical trial - [facility] 1920 20-998 Title: A phase 1b study of the pharmacokinetics, safety and efficacy of orally administered [id number] in subjects with refractory chronic myeloid leukemia [...] motor strength. Psychiatric: Memory, short term & director long term care intact; no disturbance in sleep pattern and [...] > 10 years Current medication: Reviewed from [facility] and integrated in assessment and plan. fluocinonide [...] is . 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 He does not smoke cigarettes and has [...] edema Labs: CBC with differential reviewed from [facility] and integrated in assessment and plan. William Howell MD PhD MPH Associate Staff Hematologic Oncology and Blood Disorders Pager [phone] Date of service: 11/26/2021 documented in this encounter [facility] 11-30-2021 Miscellaneous Notes Called patient to let him know that wants him to get labs done at [facility]. Patient will have BCR/ABL p210 done. Patient verbalized understanding. 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 Patient is here for screening for ACTG 1920 / IRB 20-. He was diagnosed with BCR-ABL positive chronic [...] Prior to 03/2012 L4 and L5 infusion GA ANESTH,KNEE JOINT; NOS right Prior to 03/2012Prior [...] 02/2013 Nilotinib 12/2014 -- 03/2016 Bosutinib 03/201605/02/2017 [facility] 2915 15-875 trial of Ponatinib 05/21/2017 - [...] HQP on 11/27/2021 every other day. Lot# [id number] Patient presented today to participate on the [...] nurse's contact information and after hours fellows office automation clerk. Patient understands that this participation is voluntary and that he may withdraw at any time during the trial. documented in this encounter [facility] 11-26-2021 Nurse Note Additional intake questions: Has the patient had fever, nausea, vomiting, diarrhea, constipation, fatigue for > 1 week? No Does the patient have a decreased appetite? No Does patient want to see a Computer Hardware Designer? No (yes to any of above refer patient to schedulers for dietitian appointment) ) Does patient have any new or increased numbness or tingling of extremities? No Is patient interested in fertility information? No Does patient need any prescription refills? No Does patient have an advanced directive in place? No, Patient referred to [facility] Electronically Signed By: Marcelino Finney LPN documented in this encounter [facility] 09-11-2021 Miscellaneous Notes Returned patients call about starting pravastatin while on the study ACTG 1919. Desean Fuller D consulted and pravastatin does not interact with the study drug. Patient aware that is aware and that advised for the patient not start taking lovaza. Patient verbalized understanding. documented in this encounter [facility] 09-07-2021 Miscellaneous Notes Spoke to pt and [...] this procedure: low low risk. Reference from [facility] Inhalation Therapy Aide: [email or web address] STAFF SIGNATURE: Katie Ortiz DO DATE: September [...] CONTACT INFORMATION: Best way to reach patient [phone] SCHEDULING: Date: 11/29/2021 (Specific requests must be [...] (If the imaging was obtained outside the [facility] system, PLEASE upload for review prior to approval.) Note to all persons requesting biopsies: All biopsy requests will be scheduled as quickly as possible, based on the clinical urgency, availability of appointment times, the need to hold anti-thrombolytic therapy (aspirin and other blood thinners) and the patient s schedule, including the need for an available distribution driver. If a percutaneous biopsy or drainage is not felt to be safe or an alternative method for establishing a diagnosis is possible, this will be discussed directly with the requesting physician. documented in this encounter [facility] 09-06-2021 Miscellaneous Notes Called and spoke to [...] Patient verbalized understanding. 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 Clinical steam powerplant supervisor reviewed the updated consent with patient and [...] willingly signed by patient and consenting clinical steam powerplant supervisor. Patient given copy of signed informed consent. Time: 1140 documented in this encounter [facility] 09-03-2021 History of Present illness Narrative ACTG 1920 20-998 A phase 1b study of the pharmacokinetics, safety and efficacy of orally administered [id number] in subjects with refractory chronic myeloid leukemia [...] Prior to 03/2012 L4 and L5 infusion GA ANESTH,KNEE JOINT; NOS right Prior to 03/2012Prior [...] 02/2013 Nilotinib 12/2014 -- 03/2016 Bosutinib 03/201605/02/2017 [facility] 2915 15-875 trial of Ponatinib 05/21/2017 - [...] 30 mg of HQP on 09/04/2021 Lot# [id number] Patient presented today to participate on the [...] nurse's contact information and after hours fellows office automation clerk. Patient understands that this participation is voluntary and that he may withdraw at any time during the trial. documented in this encounter [facility] Evaluation note Diagnosis CML (chronic myeloid leukemia) (HCC)- Primary Chronic myeloid leukemia, without mention of having achieved remission [facility] Diagnosis CML (chronic myeloid leukemia) [...] [facility] noteNo assessment information availableC[facility] Work Phone: Evaluation note* Diagnosis CML [...] [facility] Diagnosis Right shoulder pain, unspecified [...] of skin sensation [facility] Type 2 diabetes mellitus with microalbuminuria, with long-term current use of insulin (HCC)- Primary Primary hypertension Unspecified essential hypertension Mixed hyperlipidemia [facility] Diagnosis Type 2 diabetes mellitus [...] hyperglycemia, with long-term current use of insulin ([facility])- Primary Morbid (severe) obesity due to excess calories (CMS/HCC) Obstructive sleep apnea (adult) (pediatric) Body mass index (BMI) 37.0-37.9, adult Primary hypertension (CMS/HCC) Unspecified essential hypertension Type 2 diabetes mellitus with hyperglycemia, with long-term current use of insulin ([facility])- Primary Immunodeficiency due to conditions classified elsewhere ([facility]) Essential (primary) hypertension (CMS/HCC) Unspecified essential hypertension Morbid (severe) obesity due to excess calories (CMS/HCC) Chronic myeloid leukemia (CMS/[facility]) Chronic myeloid leukemia, without mention of having achieved remission Primary hypertension ([facility]/HCC) Unspecified essential hypertension Mixed hyperlipidemia ([facility]) Mixed hyperlipidemia Bilateral hand pain documented in this encounter [facility]* Diagnosis CML (chronic myelocytic leukemia) (HCC)- Primary Chronic myeloid leukemia, without mention of having achieved remission [facility] Diagnosis Type 2 diabetes mellitus with hyperglycemia, with long-term current use of insulin ([facility]) documented in this encounter [facility]* Diagnosis Type 2 diabetes mellitus with hyperglycemia, with long-term current use of insulin ([facility]) documented in this encounter [facility] note* Diagnosis S/P right rotator cuff repair- Primary Paresthesias in right hand Disturbance of skin sensation documented in this encounter [facility]* Diagnosis Carpal tunnel syndrome on right- Primary Carpal tunnel syndrome Paresthesias in right hand Disturbance of skin sensation Arm weakness Other musculoskeletal symptoms referable to limbs Numbness Disturbance of skin sensation Arm pain, right Pain in soft tissues of limb Ulnar neuropathy of right upper extremity documented in this encounter [facility]* Diagnosis Status post arthroscopy of right shoulder- Primary Morbid (severe) obesity due to excess calories (CMS/HCC) Obstructive sleep apnea (adult) (pediatric) Body mass index (BMI) 37.0-37.9, adult documented in this encounter [facility]* Diagnosis Morbid (severe) obesity due to excess calories (CMS/HCC) Obstructive sleep apnea (adult) (pediatric) Body mass index (BMI) 37.0-37.9, adult Status post arthroscopy of right shoulder- Primary documented in this encounter [facility] note* Diagnosis Type 2 diabetes mellitus with hyperglycemia, with long-term current use of insulin (CMS/HCC)- Primary Morbid (severe) obesity due to excess calories (CMS/HCC) Obstructive sleep apnea (adult) (pediatric) Body mass index (BMI) 37.0-37.9, adult Primary hypertension (CMS/HCC) Unspecified essential hypertension documented in this encounter [facility]* Diagnosis Type 2 diabetes mellitus [...] hyperglycemia, with long-term current use of insulin (CMS/[facility])- Primary Immunodeficiency due to conditions classified elsewhere [...] malignant neoplasms, colon [facility] Diagnosis CML (chronic myelocytic leukemia) (HCC)- Primary Chronic myeloid leukemia, without mention of having achieved remission [facility] Diagnosis CML (chronic myeloid leukemia) (HCC)- Primary Chronic myeloid leukemia, without mention of having achieved remission [facility] [place] [facility]* Diagnosis Type 2 diabetes mellitus with [...] of left shoulder documented in this encounter [facility]* Diagnosis Type 2 diabetes mellitus [...] having achieved remission [facility]* Diagnosis Encounter for screening colonoscopy- Primary Family history of colon cancer in father Screen for colon cancer Special screening for malignant neoplasms, colon [facility] Diagnosis Palpitations- Primary Abnormal ECG Nonspecific abnormal electrocardiogram (ECG) (EKG) LVH (left ventricular hypertrophy) Cardiomegaly Hypertrophic cardiomyopathy (CMS-HCC) Other primary cardiomyopathies documented [facility]* Diagnosis Primary hypertension- Primary Unspecified essential hypertension LVH (left ventricular hypertrophy) Cardiomegaly documented [facility]* Diagnosis Encounter for other preprocedural examination [facility] Diagnosis Type 2 diabetes mellitus with [...] hyperglycemia, with long-term current use of insulin (CMS/[facility])- Primary Obstructive sleep apnea (adult) (pediatric) Essential [...] hyperglycemia, with long-term current use of insulin (CMS/[facility])- Primary Primary hypertension (CMS/HCC) Unspecified essential hypertension Obesity (BMI 30-39.9) Screening for prostate cancer- Primary Special screening for malignant neoplasm of prostate Type 2 diabetes mellitus with hyperglycemia, with long-term current use of insulin ([facility]) Gastroesophageal reflux disease, unspecified whether esophagitis present [...] Type 2 diabetes mellitus with hyperglycemia (CMS/HCC) termite helper (current) use of insulin (CMS/HCC) Other hypertrophic cardiomyopathy (CMS/HCC) Other hypertrophic cardiomyopathy 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) Mixed hyperlipidemia (CMS/HCC) Mixed hyperlipidemia Obstructive sleep apnea (adult) (pediatric) Hypertrophic cardiomyopathy (CMS/HCC) Other primary cardiomyopathies LVH (left ventricular hypertrophy) Cardiomegaly Screening for prostate cancer Special screening for malignant neoplasm of prostate Primary hypertension (CMS/HCC) Unspecified essential hypertension documented in this encounter [facility]* Diagnosis Type 2 diabetes mellitus [...] Type 2 diabetes mellitus with hyperglycemia (CMS/HCC) termite helper (current) use of insulin (CMS/HCC) Other hypertrophic [...] of insulin (CMS/HCC) [facility] CML (chronic myeloid leukemia) (HCC)- Primary Chronic myeloid leukemia, without mention of having achieved remission CML (chronic myeloid leukemia) (HCC) Chronic myeloid leukemia, without mention of having achieved remission [facility] Diagnosis Type 2 diabetes mellitus [...] hyperglycemia, with long-term current use of insulin (CMS/[facility])- Primary Morbid (severe) obesity due to excess calories (CMS/HCC) Obstructive sleep apnea (adult) (pediatric) Body mass index (BMI) 37.0-37.9, adult Primary hypertension (CMS/HCC) Unspecified essential hypertension Type 2 diabetes mellitus with hyperglycemia, with long-term current use of insulin (CMS/HCC)- Primary 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) Essential (primary) hypertension (CMS/HCC) Unspecified essential hypertension [...] Type 2 diabetes mellitus with hyperglycemia (CMS/HCC) termite helper (current) use of insulin (CMS/HCC) Other hypertrophic cardiomyopathy (CMS/HCC) Other hypertrophic cardiomyopathy 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) Mixed hyperlipidemia (CMS/HCC) Mixed hyperlipidemia Obstructive sleep apnea (adult) (pediatric) Hypertrophic cardiomyopathy (CMS/HCC) Other primary cardiomyopathies LVH (left ventricular hypertrophy) Cardiomegaly Screening for prostate cancer Special screening for malignant neoplasm of prostate Primary hypertension (CMS/HCC) Unspecified essential hypertension Tear of left supraspinatus tendon- Primary Left bicipital tenosynovitis Sprain of left shoulder, unspecified shoulder sprain type, initial encounter [facility] Diagnosis Chronic myeloid leukemia (HCC) Chronic myeloid leukemia, without mention of having achieved remission [facility] Diagnosis Type 2 diabetes mellitus [...] Type 2 diabetes mellitus with hyperglycemia (CMS/HCC) termite helper (current) use of insulin (CMS/HCC) Other hypertrophic cardiomyopathy (CMS/HCC) Other hypertrophic cardiomyopathy 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) Mixed hyperlipidemia (CMS/HCC) Mixed hyperlipidemia Obstructive sleep apnea (adult) (pediatric) Hypertrophic cardiomyopathy (CMS/HCC) Other primary cardiomyopathies LVH (left ventricular hypertrophy) Cardiomegaly Screening for prostate cancer Special screening for malignant neoplasm of prostate Primary hypertension (CMS/HCC) Unspecified essential hypertension Tear of left supraspinatus tendon- Primary Left bicipital tenosynovitis Sprain of left shoulder, unspecified shoulder sprain type, initial encounter [facility] Diagnosis Chronic myeloid leukemia (HCC)- Primary Chronic myeloid leukemia, without mention of having achieved remission [facility] Diagnosis Chronic myeloid leukemia (HCC)- Primary Chronic myeloid leukemia, without mention of having achieved remission [facility] [place] [facility]* Diagnosis Type 2 diabetes mellitus with [...] Type 2 diabetes mellitus with hyperglycemia (CMS/HCC) senior living (current) use of insulin (CMS/HCC) Other hypertrophic cardiomyopathy (CMS/HCC) Other hypertrophic cardiomyopathy 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) Mixed hyperlipidemia (CMS/HCC) Mixed hyperlipidemia Obstructive sleep apnea (adult) (pediatric) Hypertrophic cardiomyopathy (CMS/HCC) Other primary cardiomyopathies LVH (left ventricular hypertrophy) Cardiomegaly Screening for prostate cancer Special screening for malignant neoplasm of prostate Primary hypertension (CMS/HCC) Unspecified essential hypertension Tear of left supraspinatus tendon- Primary Left bicipital tenosynovitis Sprain of left shoulder, unspecified shoulder sprain type, initial encounter documented in this encounter [facility] [...] Type 2 diabetes mellitus with hyperglycemia (CMS/HCC) termite helper (current) use of insulin (CMS/HCC) Other hypertrophic cardiomyopathy (CMS/HCC) Other hypertrophic cardiomyopathy 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) Mixed hyperlipidemia (CMS/HCC) Mixed hyperlipidemia Obstructive sleep apnea (adult) (pediatric) Hypertrophic cardiomyopathy (CMS/HCC) Other primary cardiomyopathies LVH (left ventricular hypertrophy) Cardiomegaly Screening for prostate cancer Special screening for malignant neoplasm of prostate Primary hypertension (CMS/HCC) Unspecified essential hypertension Tear of left supraspinatus tendon- Primary Left bicipital tenosynovitis Sprain of left shoulder, unspecified shoulder sprain type, initial encounter documented in this encounter [facility]* Diagnosis Type 2 diabetes mellitus [...] hyperglycemia, with long-term current use of insulin (CMS/[facility])- Primary Morbid (severe) obesity due to excess calories (CMS/HCC) Obstructive sleep apnea (adult) (pediatric) Body mass index (BMI) 37.0-37.9, adult Primary hypertension (CMS/HCC) Unspecified essential hypertension Type 2 diabetes mellitus with hyperglycemia, with long-term current use of insulin ([facility])- Primary Immunodeficiency due to conditions classified elsewhere ([facility]) Essential (primary) hypertension (CMS/HCC) Unspecified essential hypertension [...] hyperglycemia, with long-term current use of insulin ([facility])- Primary Morbid (severe) obesity due to excess calories (CMS/HCC) Essential (primary) hypertension (CMS/HCC) Unspecified essential hypertension Body mass index (BMI) 36.0-36.9, adult 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) Chronic myeloid leukemia, BCR/ABL-positive, not having achieved remission (CMS/HCC) Type 2 diabetes mellitus with hyperglycemia (CMS/HCC) senior living (current) use of insulin (CMS/HCC) Other hypertrophic cardiomyopathy (CMS/HCC) Other hypertrophic cardiomyopathy 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) Mixed hyperlipidemia (CMS/HCC) Mixed hyperlipidemia Obstructive sleep apnea (adult) (pediatric) Hypertrophic cardiomyopathy (CMS/HCC) Other primary cardiomyopathies LVH (left ventricular hypertrophy) Cardiomegaly Screening for prostate cancer Special screening for malignant neoplasm of prostate Primary hypertension (CMS/HCC) Unspecified essential hypertension Tear of left supraspinatus tendon- Primary Left bicipital tenosynovitis Sprain of left shoulder, unspecified shoulder sprain type, initial encounter documented in this encounter [facility]* Diagnosis Type 2 diabetes mellitus [...] Type 2 diabetes mellitus with hyperglycemia (CMS/HCC) senior living (current) use of insulin (CMS/HCC) Other hypertrophic cardiomyopathy (CMS/HCC) Other hypertrophic cardiomyopathy 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) Mixed hyperlipidemia (CMS/HCC) Mixed hyperlipidemia Obstructive sleep apnea (adult) (pediatric) Hypertrophic cardiomyopathy (CMS/HCC) Other primary cardiomyopathies LVH (left ventricular hypertrophy) Cardiomegaly Screening for prostate cancer Special screening for malignant neoplasm of prostate Primary hypertension (CMS/HCC) Unspecified essential hypertension Tear of left supraspinatus tendon- Primary Left bicipital tenosynovitis Sprain of left shoulder, unspecified shoulder sprain type, initial encounter documented in this encounter [facility]Evaluation note* Diagnosis Type 2 diabetes mellitus [...] hyperglycemia, with long-term current use of insulin (CMS/[facility]) GENET (obstructive sleep apnea)- Primary Obstructive sleep apnea (adult) (pediatric) Primary hypertension (CMS/HCC) Unspecified essential hypertension Diabetic polyneuropathy associated with type 2 diabetes mellitus (CMS/HCC) Hypertrophic cardiomyopathy (CMS/HCC) Other primary cardiomyopathies Type 2 diabetes mellitus with hyperglycemia, with long-term current use of insulin (CMS/[facility]) Obesity (BMI 30-39.9) Chronic myeloid leukemia (CMS/HCC) Chronic myeloid leukemia, without mention of having achieved remission Colon cancer screening Special screening for malignant neoplasms, colon Type 2 diabetes mellitus with hyperglycemia, with long-term current use of insulin ([facility])- Primary Morbid (severe) obesity due to excess calories (CMS/[facility]) Obstructive sleep apnea (adult) (pediatric) Body mass index (BMI) 37.0-37.9, adult Primary hypertension (CMS/HCC) Unspecified essential hypertension Type 2 diabetes mellitus with hyperglycemia, with long-term current use of insulin ([facility])- Primary Immunodeficiency due to conditions classified elsewhere ([facility]) Essential (primary) hypertension (CMS/HCC) Unspecified essential hypertension Morbid (severe) obesity due to excess calories (CMS/HCC) Chronic myeloid leukemia (CMS/HCC) Chronic myeloid leukemia, without mention of having achieved remission Primary hypertension (CMS/HCC) Unspecified essential hypertension Mixed hyperlipidemia (CMS/HCC) Mixed hyperlipidemia Bilateral hand pain Type 2 diabetes mellitus with hyperglycemia, with long-term current use of insulin (CMS/[facility])- Primary Obstructive sleep apnea (adult) (pediatric) Essential [...] Type 2 diabetes mellitus with hyperglycemia (CMS/HCC) termite helper (current) use of insulin (CMS/HCC) Other hypertrophic cardiomyopathy (CMS/HCC) Other hypertrophic cardiomyopathy 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) Mixed hyperlipidemia (CMS/HCC) Mixed hyperlipidemia Obstructive sleep apnea (adult) (pediatric) Hypertrophic cardiomyopathy (CMS/HCC) Other primary cardiomyopathies LVH (left ventricular hypertrophy) Cardiomegaly Screening for prostate cancer Special screening for malignant neoplasm of prostate Primary hypertension (CMS/HCC) Unspecified essential hypertension Tear of left supraspinatus tendon- Primary Left bicipital tenosynovitis Sprain of left shoulder, unspecified shoulder sprain type, initial encounter documented in this encounter [facility]* Diagnosis Type 2 diabetes mellitus [...] Type 2 diabetes mellitus with hyperglycemia (CMS/HCC) senior living (current) use of insulin (CMS/HCC) Other hypertrophic cardiomyopathy (CMS/HCC) Other hypertrophic cardiomyopathy 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) Mixed hyperlipidemia (CMS/HCC) Mixed hyperlipidemia Obstructive sleep apnea (adult) (pediatric) Hypertrophic cardiomyopathy (CMS/HCC) Other primary cardiomyopathies LVH (left ventricular hypertrophy) Cardiomegaly Screening for prostate cancer Special screening for malignant neoplasm of prostate Primary hypertension (CMS/HCC) Unspecified essential hypertension Tear of left supraspinatus tendon- [facility] Chronic [facility] (HCC)- Primary Chronic myeloid leukemia, without mention of having achieved remission [facility] [place] [facility] Diagnosis CML (chronic myeloid leukemia) (HCC)- Primary Chronic myeloid leukemia, without mention of having achieved remission Exam for clinical research Examination of participant in clinical trial [facility] [place] [facility]* Diagnosis CML (chronic myeloid leukemia) (HCC)- Primary Chronic myeloid leukemia, without mention of having achieved remission [facility] [place] [facility]* Diagnosis Type 2 diabetes mellitus with [...] Type 2 diabetes mellitus with hyperglycemia (CMS/HCC) termite helper (current) use of insulin (CMS/HCC) Other hypertrophic cardiomyopathy (CMS/HCC) Other hypertrophic cardiomyopathy 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) Mixed hyperlipidemia (CMS/HCC) Mixed hyperlipidemia Obstructive sleep apnea (adult) (pediatric) Hypertrophic cardiomyopathy (CMS/HCC) Other primary cardiomyopathies LVH (left ventricular hypertrophy) Cardiomegaly Screening for prostate cancer Special screening for malignant neoplasm of prostate Primary hypertension (CMS/HCC) Unspecified essential hypertension Tear of left supraspinatus tendon- Primary Left bicipital tenosynovitis Sprain of left shoulder, unspecified shoulder sprain type, initial encounter documented in this encounter [facility]Evaluation note* Diagnosis Type 2 diabetes mellitus [...] Type 2 diabetes mellitus with hyperglycemia (CMS/HCC) senior living (current) use of insulin (CMS/HCC) Other hypertrophic cardiomyopathy (CMS/HCC) Other hypertrophic cardiomyopathy 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) Mixed hyperlipidemia (CMS/HCC) Mixed hyperlipidemia Obstructive sleep apnea (adult) (pediatric) Hypertrophic cardiomyopathy (CMS/HCC) Other primary cardiomyopathies LVH (left ventricular hypertrophy) Cardiomegaly Screening for prostate cancer Special screening for malignant neoplasm of prostate Primary hypertension (CMS/HCC) Unspecified essential hypertension Tear of left supraspinatus tendon- Primary Left bicipital tenosynovitis Sprain of left shoulder, unspecified shoulder sprain type, initial encounter documented in this encounter [facility]Evaluation note* Diagnosis Type 2 diabetes mellitus [...] Type 2 diabetes mellitus with hyperglycemia (CMS/HCC) senior living (current) use of insulin (CMS/HCC) Other hypertrophic cardiomyopathy (CMS/HCC) Other hypertrophic cardiomyopathy 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) Mixed hyperlipidemia (CMS/HCC) Mixed hyperlipidemia Obstructive sleep apnea (adult) (pediatric) Hypertrophic cardiomyopathy (CMS/HCC) Other primary cardiomyopathies LVH (left ventricular hypertrophy) Cardiomegaly Screening for prostate cancer Special screening for malignant neoplasm of prostate Primary hypertension (CMS/HCC) Unspecified essential hypertension Tear of left supraspinatus tendon- Primary Left bicipital tenosynovitis Sprain of left shoulder, unspecified shoulder sprain type, initial encounter documented in this encounter [facility]* Diagnosis Type 2 diabetes mellitus [...] Type 2 diabetes mellitus with hyperglycemia (CMS/HCC) senior living (current) use of insulin (CMS/HCC) Other hypertrophic cardiomyopathy (CMS/HCC) Other hypertrophic cardiomyopathy 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) Mixed hyperlipidemia (CMS/HCC) Mixed hyperlipidemia Obstructive sleep apnea (adult) (pediatric) Hypertrophic cardiomyopathy (CMS/HCC) Other primary cardiomyopathies LVH (left ventricular hypertrophy) Cardiomegaly Screening for prostate cancer Special screening for malignant neoplasm of prostate Primary hypertension (CMS/HCC) Unspecified essential hypertension Tear of left supraspinatus tendon- Primary Left bicipital tenosynovitis Sprain of left shoulder, unspecified shoulder sprain type, initial encounter documented in this encounter [facility] note* Diagnosis Type 2 diabetes mellitus [...] Type 2 diabetes mellitus with hyperglycemia (CMS/HCC) senior living (current) use of insulin (CMS/HCC) Other hypertrophic cardiomyopathy (CMS/HCC) Other hypertrophic cardiomyopathy 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) Mixed hyperlipidemia (CMS/HCC) Mixed hyperlipidemia Obstructive sleep apnea (adult) (pediatric) Hypertrophic cardiomyopathy (CMS/HCC) Other primary cardiomyopathies LVH (left ventricular hypertrophy) Cardiomegaly Screening for prostate cancer Special screening for malignant neoplasm of prostate Primary hypertension (CMS/HCC) Unspecified essential hypertension Tear of left supraspinatus tendon- Primary Left bicipital tenosynovitis Sprain of left shoulder, unspecified shoulder sprain type, [facility] CML (chronic myelocytic leukemia) (HCC)- Primary Chronic myeloid leukemia, without mention of having achieved remission [facility] Diagnosis Type 2 diabetes mellitus [...] Type 2 diabetes mellitus with hyperglycemia (CMS/HCC) senior living (current) use of insulin (CMS/HCC) Other hypertrophic cardiomyopathy (CMS/HCC) Other hypertrophic cardiomyopathy 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) Mixed hyperlipidemia (CMS/HCC) Mixed hyperlipidemia Obstructive sleep apnea (adult) (pediatric) Hypertrophic cardiomyopathy (CMS/HCC) Other primary cardiomyopathies LVH (left ventricular hypertrophy) Cardiomegaly Screening for prostate cancer Special screening for malignant neoplasm of prostate Primary hypertension (CMS/HCC) Unspecified essential hypertension Tear of left supraspinatus tendon- Primary Left bicipital tenosynovitis Sprain of left shoulder, unspecified shoulder sprain type, initial encounter documented in this encounter [facility]* Diagnosis Type 2 diabetes mellitus [...] Type 2 diabetes mellitus with hyperglycemia (CMS/HCC) termite helper (current) use of insulin (CMS/HCC) Other hypertrophic cardiomyopathy (CMS/HCC) Other hypertrophic cardiomyopathy 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) Mixed hyperlipidemia (CMS/HCC) Mixed hyperlipidemia Obstructive sleep apnea (adult) (pediatric) Hypertrophic cardiomyopathy (CMS/HCC) Other primary cardiomyopathies LVH (left ventricular hypertrophy) Cardiomegaly Screening for prostate cancer Special screening for malignant neoplasm of prostate Primary hypertension (CMS/HCC) Unspecified essential hypertension Tear of left supraspinatus tendon- Primary Left bicipital tenosynovitis Sprain of left shoulder, unspecified shoulder sprain type, initial encounter documented in this encounter [facility] note* Diagnosis Type 2 diabetes mellitus [...] Type 2 diabetes mellitus with hyperglycemia (CMS/HCC) termite helper (current) use of insulin (CMS/HCC) Other hypertrophic cardiomyopathy (CMS/HCC) Other hypertrophic cardiomyopathy 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) Mixed hyperlipidemia (CMS/HCC) Mixed hyperlipidemia Obstructive sleep apnea (adult) (pediatric) Hypertrophic cardiomyopathy (CMS/HCC) Other primary cardiomyopathies LVH (left ventricular hypertrophy) Cardiomegaly Screening for prostate cancer Special screening for malignant neoplasm of prostate Primary hypertension (CMS/HCC) Unspecified essential hypertension Tear of left supraspinatus tendon- Primary Left bicipital tenosynovitis Sprain of left shoulder, unspecified shoulder sprain type, initial [facility] CML (chronic myelocytic leukemia) (HCC)- Primary Chronic myeloid leukemia, without mention of having achieved remission [facility] Diagnosis Type 2 diabetes mellitus [...] hyperglycemia, with long-term current use of insulin (CMS/[facility])- Primary Morbid (severe) obesity due to excess [...] Type 2 diabetes mellitus with hyperglycemia (CMS/HCC) senior living (current) use of insulin (CMS/HCC) Other hypertrophic cardiomyopathy (CMS/HCC) Other hypertrophic cardiomyopathy 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) Mixed hyperlipidemia (CMS/HCC) Mixed hyperlipidemia Obstructive sleep apnea (adult) (pediatric) Hypertrophic cardiomyopathy (CMS/HCC) Other primary cardiomyopathies LVH (left ventricular hypertrophy) Cardiomegaly Screening for prostate cancer Special screening for malignant neoplasm of prostate Primary hypertension (CMS/HCC) Unspecified essential hypertension Tear of left supraspinatus tendon- Primary Left bicipital tenosynovitis Sprain of left shoulder, unspecified shoulder sprain type, initial encounter [facility] Cardiomyopathy, hypertrophic (CMS-HCC)- Primary Primary hypertension Unspecified essential hypertension [facility] Diagnosis CML (chronic myelocytic leukemia) (HCC)- Primary Chronic myeloid leukemia, without mention of having achieved remission [facility] Diagnosis Type 2 diabetes mellitus [...] Type 2 diabetes mellitus with hyperglycemia (CMS/HCC) termite helper (current) use of insulin (CMS/HCC) Other hypertrophic cardiomyopathy (CMS/HCC) Other hypertrophic cardiomyopathy 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) Mixed hyperlipidemia (CMS/HCC) Mixed hyperlipidemia Obstructive sleep apnea (adult) (pediatric) Hypertrophic cardiomyopathy (CMS/HCC) Other primary cardiomyopathies LVH (left ventricular hypertrophy) Cardiomegaly Screening for prostate cancer Special screening for malignant neoplasm of prostate Primary hypertension (CMS/HCC) Unspecified essential hypertension Tear of left supraspinatus tendon- Primary Left bicipital tenosynovitis Sprain of left shoulder, unspecified shoulder sprain type, initial encounter documented in this encounter [facility] note* Diagnosis Type 2 diabetes mellitus [...] Type 2 diabetes mellitus with hyperglycemia (CMS/HCC) termite helper (current) use of insulin (CMS/HCC) Other hypertrophic cardiomyopathy (CMS/HCC) Other hypertrophic cardiomyopathy 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) Mixed hyperlipidemia (CMS/HCC) Mixed hyperlipidemia Obstructive sleep apnea (adult) (pediatric) Hypertrophic cardiomyopathy (CMS/HCC) Other primary cardiomyopathies LVH (left ventricular hypertrophy) Cardiomegaly Screening for prostate cancer Special screening for malignant neoplasm of prostate Primary hypertension (CMS/HCC) Unspecified essential hypertension Tear of left supraspinatus tendon- Primary Left bicipital tenosynovitis Sprain of left shoulder, unspecified shoulder sprain type, initial encounter documented in this encounter [facility]* Diagnosis Type 2 diabetes mellitus [...] hyperglycemia, with long-term current use of insulin ([facility])- Primary Morbid (severe) obesity due to excess calories (CMS/HCC) Obstructive sleep apnea (adult) (pediatric) Body mass index (BMI) 37.0-37.9, adult Primary hypertension (CMS/HCC) Unspecified essential hypertension Type 2 diabetes mellitus with hyperglycemia, with long-term current use of insulin (CMS/[facility])- Primary Immunodeficiency due to conditions classified elsewhere ([facility]/HCC) Essential (primary) hypertension (CMS/HCC) Unspecified essential hypertension [...] Type 2 diabetes mellitus with hyperglycemia (CMS/HCC) senior living (current) use of insulin (CMS/HCC) Other hypertrophic cardiomyopathy (CMS/HCC) Other hypertrophic cardiomyopathy 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) Mixed hyperlipidemia (CMS/HCC) Mixed hyperlipidemia Obstructive sleep apnea (adult) (pediatric) Hypertrophic cardiomyopathy (CMS/HCC) Other primary cardiomyopathies LVH (left ventricular hypertrophy) Cardiomegaly Screening for prostate cancer Special screening for malignant neoplasm of prostate Primary hypertension (CMS/HCC) Unspecified essential hypertension Tear of left supraspinatus tendon- Primary Left bicipital tenosynovitis Sprain of left shoulder, unspecified shoulder sprain type, initial encounter documented in this encounter [facility]* Diagnosis Type 2 diabetes mellitus [...] hyperglycemia, with long-term current use of insulin (CMS/[facility])- Primary Immunodeficiency due to conditions classified elsewhere ([facility]/HCC) Essential (primary) hypertension (CMS/HCC) Unspecified essential hypertension [...] Type 2 diabetes mellitus with hyperglycemia (CMS/HCC) termite helper (current) use of insulin (CMS/HCC) Other hypertrophic cardiomyopathy (CMS/HCC) Other hypertrophic cardiomyopathy 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) Mixed hyperlipidemia (CMS/HCC) Mixed hyperlipidemia Obstructive sleep apnea (adult) (pediatric) Hypertrophic cardiomyopathy (CMS/HCC) Other primary cardiomyopathies LVH (left ventricular hypertrophy) Cardiomegaly Screening for prostate cancer Special screening for malignant neoplasm of prostate Primary hypertension (CMS/HCC) Unspecified essential hypertension Tear of left supraspinatus tendon- Primary Left bicipital tenosynovitis Sprain of left shoulder, unspecified shoulder sprain type, initial encounter documented in this encounter [facility] note* Diagnosis Type 2 diabetes mellitus [...] Type 2 diabetes mellitus with hyperglycemia (CMS/HCC) termite helper (current) use of insulin (CMS/HCC) Other hypertrophic cardiomyopathy (CMS/HCC) Other hypertrophic cardiomyopathy 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) Mixed hyperlipidemia (CMS/HCC) Mixed hyperlipidemia Obstructive sleep apnea (adult) (pediatric) Hypertrophic cardiomyopathy (CMS/HCC) Other primary cardiomyopathies LVH (left ventricular hypertrophy) Cardiomegaly Screening for prostate cancer Special screening for malignant neoplasm of prostate Primary hypertension (CMS/HCC) Unspecified essential hypertension Sprain of left shoulder, initial encounter- Primary Tear of left supraspinatus tendon documented [...] Type 2 diabetes mellitus with hyperglycemia (CMS/HCC) senior living (current) use of insulin (CMS/HCC) Other hypertrophic cardiomyopathy (CMS/HCC) Other hypertrophic cardiomyopathy 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) Mixed hyperlipidemia (CMS/HCC) Mixed hyperlipidemia Obstructive sleep apnea (adult) (pediatric) Hypertrophic cardiomyopathy (CMS/HCC) Other primary cardiomyopathies LVH (left ventricular hypertrophy) Cardiomegaly Screening for prostate cancer Special screening for malignant neoplasm of prostate Primary hypertension (CMS/HCC) Unspecified essential hypertension Tear of left supraspinatus tendon- Primary Left bicipital tenosynovitis Sprain of left shoulder, unspecified shoulder sprain type, initial encounter documented in this encounter [facility]* Diagnosis Type 2 diabetes mellitus with hyperglycemia, with long-term current use of insulin (HCC)- Primary Primary hypertension Unspecified essential hypertension Obesity (BMI 30-39.9) Screening for prostate cancer- Primary Special screening for malignant neoplasm of prostate Type 2 diabetes mellitus with hyperglycemia, with long-term current use of insulin (HCC) Gastroesophageal reflux disease, unspecified whether esophagitis present Primary hypertension Unspecified essential hypertension Mixed hyperlipidemia Mixed hyperlipidemia Hypertrophic cardiomyopathy (HCC) Other primary cardiomyopathies Chronic myeloid leukemia, BCR/ABL-positive, 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) Other hypertrophic cardiomyopathy (I42.2) Other hypertrophic cardiomyopathy Localized swelling on left hand- Primary Obesity (BMI 30-39.9) Type 2 diabetes mellitus with hyperglycemia, with long-term current use of insulin (HCC) GENET (obstructive sleep apnea)- Primary Obstructive sleep apnea (adult) (pediatric) Primary hypertension Unspecified essential hypertension Diabetic polyneuropathy associated with type 2 diabetes mellitus (HCC) Hypertrophic cardiomyopathy (HCC) Other primary cardiomyopathies Type 2 diabetes mellitus with hyperglycemia, with long-term current use of insulin (HCC) Obesity (BMI 30-39.9) Chronic myeloid leukemia (HCC) Chronic myeloid leukemia, without mention of having achieved remission Colon cancer screening Special screening for malignant neoplasms, colon Type 2 diabetes mellitus with hyperglycemia, with long-term current use of insulin (HCC)- Primary Morbid (severe) obesity due to excess calories (CMS-HCC) Obstructive sleep apnea (adult) (pediatric) Body mass index (BMI) 37.0-37.9, adult Primary hypertension Unspecified essential hypertension Type 2 diabetes mellitus with hyperglycemia, with long-term current use of insulin (HCC)- Primary Immunodeficiency due to conditions classified elsewhere (HCC) Essential (primary) hypertension Unspecified essential hypertension Morbid (severe) obesity due to excess calories (CMS-HCC) Chronic myeloid leukemia (HCC) Chronic myeloid leukemia, without mention of having achieved remission Primary hypertension Unspecified essential hypertension Mixed hyperlipidemia Mixed hyperlipidemia Bilateral hand pain Type 2 diabetes mellitus with hyperglycemia, with long-term current use of insulin (HCC)- Primary Obstructive sleep apnea (adult) (pediatric) Essential (primary) hypertension Unspecified essential hypertension Hypertrophic cardiomyopathy (HCC) Other primary cardiomyopathies Morbid (severe) obesity due to excess calories (CMS-HCC) Chronic myeloid leukemia (HCC) Chronic myeloid leukemia, without mention of having achieved remission Mixed hyperlipidemia Mixed hyperlipidemia Colon cancer screening Special screening for malignant neoplasms, colon Type 2 diabetes mellitus with hyperglycemia, with long-term current use of insulin (HCC)- Primary Morbid (severe) obesity due to excess calories (CMS-HCC) Essential (primary) hypertension Unspecified essential hypertension Body mass index (BMI) 36.0-36.9, adult 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, BCR/ABL-positive, 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) Type 2 diabetes mellitus with hyperglycemia (HCC) senior living (current) use of insulin (HCC) Other hypertrophic cardiomyopathy (HCC) Other hypertrophic cardiomyopathy Type 2 diabetes mellitus with diabetic nephropathy (HCC) Mixed hyperlipidemia Mixed hyperlipidemia Obstructive sleep apnea (adult) (pediatric) Hypertrophic cardiomyopathy (HCC) Other primary cardiomyopathies LVH (left ventricular hypertrophy) Cardiomegaly Screening for prostate cancer Special screening for malignant neoplasm of prostate Primary hypertension Unspecified essential hypertension Tear of left supraspinatus tendon- Primary Left bicipital tenosynovitis Sprain of left shoulder, unspecified shoulder sprain type, initial encounter documented in this encounter [facility]* Diagnosis Type 2 diabetes mellitus [...] hyperglycemia, with long-term current use of insulin (CMS/[facility])- Primary Morbid (severe) obesity due to excess calories (CMS/HCC) Obstructive sleep apnea (adult) (pediatric) Body mass index (BMI) 37.0-37.9, adult Primary hypertension (CMS/HCC) Unspecified essential hypertension Type 2 diabetes mellitus with hyperglycemia, with long-term current use of insulin (CMS/[facility])- Primary Immunodeficiency due to conditions classified elsewhere ([facility]) Essential (primary) hypertension (CMS/HCC) Unspecified essential hypertension [...] Type 2 diabetes mellitus with hyperglycemia (CMS/HCC) termite helper (current) use of insulin (CMS/HCC) Other hypertrophic [...] long-term current use of insulin (CMS/HCC)- Primary documented in this encounter [facility]* Diagnosis Type 2 diabetes mellitus with hyperglycemia, with long-term current use of insulin (HCC)- Primary Primary hypertension Unspecified essential hypertension Obesity (BMI 30-39.9) Screening for prostate cancer- Primary Special screening for malignant neoplasm of prostate Type 2 diabetes mellitus with hyperglycemia, with long-term current use of insulin (HCC) Gastroesophageal reflux disease, unspecified whether esophagitis present Primary hypertension Unspecified essential hypertension Mixed hyperlipidemia Mixed hyperlipidemia Hypertrophic cardiomyopathy (HCC) Other primary cardiomyopathies Chronic myeloid leukemia, BCR/ABL-positive, 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) Other hypertrophic cardiomyopathy (I42.2) Other hypertrophic cardiomyopathy Localized swelling on left hand- Primary Obesity (BMI 30-39.9) Type 2 diabetes mellitus with hyperglycemia, with long-term current use of insulin (HCC) GENET (obstructive sleep apnea)- Primary Obstructive sleep apnea (adult) (pediatric) Primary hypertension Unspecified essential hypertension Diabetic polyneuropathy associated with type 2 diabetes mellitus (HCC) Hypertrophic cardiomyopathy (HCC) Other primary cardiomyopathies Type 2 diabetes mellitus with hyperglycemia, with long-term current use of insulin (HCC) Obesity (BMI 30-39.9) Chronic myeloid leukemia (HCC) Chronic myeloid leukemia, without mention of having achieved remission Colon cancer screening Special screening for malignant neoplasms, colon Type 2 diabetes mellitus with hyperglycemia, with long-term current use of insulin (HCC)- Primary Morbid (severe) obesity due to excess calories (CMS-HCC) Obstructive sleep apnea (adult) (pediatric) Body mass index (BMI) 37.0-37.9, adult Primary hypertension Unspecified essential hypertension Type 2 diabetes mellitus with hyperglycemia, with long-term current use of insulin (HCC)- Primary Immunodeficiency due to conditions classified elsewhere (HCC) Essential (primary) hypertension Unspecified essential hypertension Morbid (severe) obesity due to excess calories (CMS-HCC) Chronic myeloid leukemia (HCC) Chronic myeloid leukemia, without mention of having achieved remission Primary hypertension Unspecified essential hypertension Mixed hyperlipidemia Mixed hyperlipidemia Bilateral hand pain Type 2 diabetes mellitus with hyperglycemia, with long-term current use of insulin (HCC)- Primary Obstructive sleep apnea (adult) (pediatric) Essential (primary) hypertension Unspecified essential hypertension Hypertrophic cardiomyopathy (HCC) Other primary cardiomyopathies Morbid (severe) obesity due to excess calories (CMS-HCC) Chronic myeloid leukemia (HCC) Chronic myeloid leukemia, without mention of having achieved remission Mixed hyperlipidemia Mixed hyperlipidemia Colon cancer screening Special screening for malignant neoplasms, colon Type 2 diabetes mellitus with hyperglycemia, with long-term current use of insulin (HCC)- Primary Morbid (severe) obesity due to excess calories (CMS-HCC) Essential (primary) hypertension Unspecified essential hypertension Body mass index (BMI) 36.0-36.9, adult 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, BCR/ABL-positive, 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) Type 2 diabetes mellitus with hyperglycemia (HCC) senior living (current) use of insulin (HCC) Other hypertrophic cardiomyopathy (HCC) Other hypertrophic cardiomyopathy Type 2 diabetes mellitus with diabetic nephropathy (HCC) Mixed hyperlipidemia Mixed hyperlipidemia Obstructive sleep apnea (adult) (pediatric) Hypertrophic cardiomyopathy (HCC) Other primary cardiomyopathies LVH (left ventricular hypertrophy) Cardiomegaly Screening for prostate cancer Special screening for malignant neoplasm of prostate Primary hypertension Unspecified essential hypertension Type 2 diabetes mellitus with hyperglycemia, with long-term current use of insulin (HCC)- Primary Type 2 diabetes mellitus with diabetic polyneuropathy, with long-term current use of insulin (HCC) Essential (primary) hypertension Unspecified essential hypertension Morbid (severe) obesity due to excess calories ([facility]-HCC) Screening for prostate cancer Special screening for malignant neoplasm of prostate Primary hypertension Unspecified essential hypertension Mixed hyperlipidemia Mixed hyperlipidemia documented in this encounter [facility] HealthcareEvaluation note* Diagnosis Type 2 diabetes mellitus with hyperglycemia, with long-term current use of insulin (HCC)- Primary Primary hypertension Unspecified essential hypertension Obesity (BMI 30-39.9) Screening for prostate cancer- Primary Special screening for malignant neoplasm of prostate Type 2 diabetes mellitus with hyperglycemia, with long-term current use of insulin (HCC) Gastroesophageal reflux disease, unspecified whether esophagitis present Primary hypertension Unspecified essential hypertension Mixed hyperlipidemia Mixed hyperlipidemia Hypertrophic cardiomyopathy (HCC) Other primary cardiomyopathies Chronic myeloid leukemia, BCR/ABL-positive, 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) Other hypertrophic cardiomyopathy (I42.2) Other hypertrophic cardiomyopathy Localized swelling on left hand- Primary Obesity (BMI 30-39.9) Type 2 diabetes mellitus with hyperglycemia, with long-term current use of insulin (HCC) GENET (obstructive sleep apnea)- Primary Obstructive sleep apnea (adult) (pediatric) Primary hypertension Unspecified essential hypertension Diabetic polyneuropathy associated with type 2 diabetes mellitus (HCC) Hypertrophic cardiomyopathy (HCC) Other primary cardiomyopathies Type 2 diabetes mellitus with hyperglycemia, with long-term current use of insulin (HCC) Obesity (BMI 30-39.9) Chronic myeloid leukemia (HCC) Chronic myeloid leukemia, without mention of having achieved remission Colon cancer screening Special screening for malignant neoplasms, colon Type 2 diabetes mellitus with hyperglycemia, with long-term current use of insulin (HCC)- Primary Morbid (severe) obesity due to excess calories ([facility]) Obstructive sleep apnea (adult) (pediatric) Body mass index (BMI) 37.0-37.9, adult Primary hypertension Unspecified essential hypertension Type 2 diabetes mellitus with hyperglycemia, with long-term current use of insulin (HCC)- Primary Immunodeficiency due to conditions classified elsewhere (HCC) Essential (primary) hypertension Unspecified essential hypertension Morbid (severe) obesity due to excess calories ([facility]) Chronic myeloid leukemia (HCC) Chronic myeloid leukemia, without mention of having achieved remission Primary hypertension Unspecified essential hypertension Mixed hyperlipidemia Mixed hyperlipidemia Bilateral hand pain Type 2 diabetes mellitus with hyperglycemia, with long-term current use of insulin (HCC)- Primary Obstructive sleep apnea (adult) (pediatric) Essential (primary) hypertension Unspecified essential hypertension Hypertrophic cardiomyopathy (HCC) Other primary cardiomyopathies Morbid (severe) obesity due to excess calories (CMS-HCC) Chronic myeloid leukemia (HCC) Chronic myeloid leukemia, without mention of having achieved remission Mixed hyperlipidemia Mixed hyperlipidemia Colon cancer screening Special screening for malignant neoplasms, colon Type 2 diabetes mellitus with hyperglycemia, with long-term current use of insulin (HCC)- Primary Morbid (severe) obesity due to excess calories (CMS-HCC) Essential (primary) hypertension Unspecified essential hypertension Body mass index (BMI) 36.0-36.9, adult 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, BCR/ABL-positive, 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) Type 2 diabetes mellitus with hyperglycemia (HCC) senior living (current) use of insulin (HCC) Other hypertrophic cardiomyopathy (HCC) Other hypertrophic cardiomyopathy Type 2 diabetes mellitus with diabetic nephropathy (HCC) Mixed hyperlipidemia Mixed hyperlipidemia Obstructive sleep apnea (adult) (pediatric) Hypertrophic cardiomyopathy (HCC) Other primary cardiomyopathies LVH (left ventricular hypertrophy) Cardiomegaly Screening for prostate cancer Special screening for malignant neoplasm of prostate Primary hypertension Unspecified essential hypertension Type 2 diabetes mellitus with hyperglycemia, with long-term current use of insulin (HCC)- Primary Type 2 diabetes mellitus with diabetic polyneuropathy, with long-term current use of insulin (HCC) Essential (primary) hypertension Unspecified essential hypertension Morbid (severe) obesity due to excess calories (CMS-HCC) Screening for prostate cancer Special screening for malignant neoplasm of prostate Primary hypertension Unspecified essential hypertension Mixed hyperlipidemia Mixed hyperlipidemia Sprain of left shoulder, initial encounter- [facility] CML (chronic myeloid leukemia) (HCC)- Primary Chronic myeloid leukemia, without mention of having achieved remission [facility] Type 2 diabetes mellitus with hyperglycemia, with long-term current use of insulin (HCC)- Primary Primary hypertension Unspecified essential hypertension Obesity (BMI 30-39.9) Screening for prostate cancer- Primary Special screening for malignant neoplasm of prostate Type 2 diabetes mellitus with hyperglycemia, with long-term current use of insulin (HCC) Gastroesophageal reflux disease, unspecified whether esophagitis present Primary hypertension Unspecified essential hypertension Mixed hyperlipidemia Mixed hyperlipidemia Hypertrophic cardiomyopathy (HCC) Other primary cardiomyopathies Chronic myeloid leukemia, BCR/ABL-positive, 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) Other hypertrophic cardiomyopathy (I42.2) Other hypertrophic cardiomyopathy Localized swelling on left hand- Primary Obesity (BMI 30-39.9) Type 2 diabetes mellitus with hyperglycemia, with long-term current use of insulin (HCC) GENET (obstructive sleep apnea)- Primary Obstructive sleep apnea (adult) (pediatric) Primary hypertension Unspecified essential hypertension Diabetic polyneuropathy associated with type 2 diabetes mellitus (HCC) Hypertrophic cardiomyopathy (HCC) Other primary cardiomyopathies Type 2 diabetes mellitus with hyperglycemia, with long-term current use of insulin (HCC) Obesity (BMI 30-39.9) Chronic myeloid leukemia (HCC) Chronic myeloid leukemia, without mention of having achieved remission Colon cancer screening Special screening for malignant neoplasms, colon Type 2 diabetes mellitus with hyperglycemia, with long-term current use of insulin (HCC)- Primary Morbid (severe) obesity due to excess calories (CMS-HCC) Obstructive sleep apnea (adult) (pediatric) Body mass index (BMI) 37.0-37.9, adult Primary hypertension Unspecified essential hypertension Type 2 diabetes mellitus with hyperglycemia, with long-term current use of insulin (HCC)- Primary Immunodeficiency due to conditions classified elsewhere ([facility]) Essential (primary) hypertension Unspecified essential hypertension Morbid (severe) obesity due to excess calories (CMS-HCC) Chronic myeloid leukemia (HCC) Chronic myeloid leukemia, without mention of having achieved remission Primary hypertension Unspecified essential hypertension Mixed hyperlipidemia Mixed hyperlipidemia Bilateral hand pain Type 2 diabetes mellitus with hyperglycemia, with long-term current use of insulin (HCC)- Primary Obstructive sleep apnea (adult) (pediatric) Essential (primary) hypertension Unspecified essential hypertension Hypertrophic cardiomyopathy (HCC) Other primary cardiomyopathies Morbid (severe) obesity due to excess calories (CMS-HCC) Chronic myeloid leukemia (HCC) Chronic myeloid leukemia, without mention of having achieved remission Mixed hyperlipidemia Mixed hyperlipidemia Colon cancer screening Special screening for malignant neoplasms, colon Type 2 diabetes mellitus with hyperglycemia, with long-term current use of insulin (HCC)- Primary Morbid (severe) obesity due to excess calories (CMS-HCC) Essential (primary) hypertension Unspecified essential hypertension Body mass index (BMI) 36.0-36.9, adult 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, BCR/ABL-positive, 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) Type 2 diabetes mellitus with hyperglycemia (HCC) senior living (current) use of insulin (HCC) Other hypertrophic cardiomyopathy (HCC) Other hypertrophic cardiomyopathy Type 2 diabetes mellitus with diabetic nephropathy (HCC) Mixed hyperlipidemia Mixed hyperlipidemia Obstructive sleep apnea (adult) (pediatric) Hypertrophic cardiomyopathy (HCC) Other primary cardiomyopathies LVH (left ventricular hypertrophy) Cardiomegaly Screening for prostate cancer Special screening for malignant neoplasm of prostate Primary hypertension Unspecified essential hypertension Type 2 diabetes mellitus with hyperglycemia, with long-term current use of insulin (HCC)- Primary Type 2 diabetes mellitus with diabetic polyneuropathy, with long-term current use of insulin (HCC) Essential (primary) hypertension Unspecified essential hypertension Morbid (severe) obesity due to excess calories ([facility]-HCC) Screening for prostate cancer Special screening for malignant neoplasm of prostate Primary hypertension Unspecified essential hypertension Mixed hyperlipidemia Mixed hyperlipidemia Tear of left supraspinatus tendon- Primary Left bicipital tenosynovitis Sprain of left shoulder, unspecified shoulder sprain type, initial encounter documented in this encounter [facility]* Diagnosis Type 2 diabetes mellitus with hyperglycemia, with long-term current use of insulin (HCC)- Primary Primary hypertension Unspecified essential hypertension Obesity (BMI 30-39.9) Screening for prostate cancer- Primary Special screening for malignant neoplasm of prostate Type 2 diabetes mellitus with hyperglycemia, with long-term current use of insulin (HCC) Gastroesophageal reflux disease, unspecified whether esophagitis present Primary hypertension Unspecified essential hypertension Mixed hyperlipidemia Mixed hyperlipidemia Hypertrophic cardiomyopathy (HCC) Other primary cardiomyopathies Chronic myeloid leukemia, BCR/ABL-positive, 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) Other hypertrophic cardiomyopathy (I42.2) Other hypertrophic cardiomyopathy Localized swelling on left hand- Primary Obesity (BMI 30-39.9) Type 2 diabetes mellitus with hyperglycemia, with long-term current use of insulin (HCC) GENET (obstructive sleep apnea)- Primary Obstructive sleep apnea (adult) (pediatric) Primary hypertension Unspecified essential hypertension Diabetic polyneuropathy associated with type 2 diabetes mellitus (HCC) Hypertrophic cardiomyopathy (HCC) Other primary cardiomyopathies Type 2 diabetes mellitus with hyperglycemia, with long-term current use of insulin (HCC) Obesity (BMI 30-39.9) Chronic myeloid leukemia (HCC) Chronic myeloid leukemia, without mention of having achieved remission Colon cancer screening Special screening for malignant neoplasms, colon Type 2 diabetes mellitus with hyperglycemia, with long-term current use of insulin (HCC)- Primary Morbid (severe) obesity due to excess calories (CMS-HCC) Obstructive sleep apnea (adult) (pediatric) Body mass index (BMI) 37.0-37.9, adult Primary hypertension Unspecified essential hypertension Type 2 diabetes mellitus with hyperglycemia, with long-term current use of insulin (HCC)- Primary Immunodeficiency due to conditions classified elsewhere (HCC) Essential (primary) hypertension Unspecified essential hypertension Morbid (severe) obesity due to excess calories (CMS-HCC) Chronic myeloid leukemia (HCC) Chronic myeloid leukemia, without mention of having achieved remission Primary hypertension Unspecified essential hypertension Mixed hyperlipidemia Mixed hyperlipidemia Bilateral hand pain Type 2 diabetes mellitus with hyperglycemia, with long-term current use of insulin (HCC)- Primary Obstructive sleep apnea (adult) (pediatric) Essential (primary) hypertension Unspecified essential hypertension Hypertrophic cardiomyopathy (HCC) Other primary cardiomyopathies Morbid (severe) obesity due to excess calories (CMS-HCC) Chronic myeloid leukemia (HCC) Chronic myeloid leukemia, without mention of having achieved remission Mixed hyperlipidemia Mixed hyperlipidemia Colon cancer screening Special screening for malignant neoplasms, colon Type 2 diabetes mellitus with hyperglycemia, with long-term current use of insulin (HCC)- Primary Morbid (severe) obesity due to excess calories (CMS-HCC) Essential (primary) hypertension Unspecified essential hypertension Body mass index (BMI) 36.0-36.9, adult 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, BCR/ABL-positive, 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) Type 2 diabetes mellitus with hyperglycemia (HCC) senior living (current) use of insulin (HCC) Other hypertrophic cardiomyopathy (HCC) Other hypertrophic cardiomyopathy Type 2 diabetes mellitus with diabetic nephropathy (HCC) Mixed hyperlipidemia Mixed hyperlipidemia Obstructive sleep apnea (adult) (pediatric) Hypertrophic cardiomyopathy (HCC) Other primary cardiomyopathies LVH (left ventricular hypertrophy) Cardiomegaly Screening for prostate cancer Special screening for malignant neoplasm of prostate Primary hypertension Unspecified essential hypertension Type 2 diabetes mellitus with hyperglycemia, with long-term current use of insulin (HCC)- Primary Type 2 diabetes mellitus with diabetic polyneuropathy, with long-term current use of insulin (HCC) Essential (primary) hypertension Unspecified essential hypertension Morbid (severe) obesity due to excess calories (CMS-HCC) Screening for prostate cancer Special screening for malignant neoplasm of prostate Primary hypertension Unspecified essential hypertension Mixed hyperlipidemia Mixed hyperlipidemia Tear of left supraspinatus tendon- Primary Left bicipital tenosynovitis Sprain of left shoulder, unspecified shoulder sprain type, initial encounter documented in this encounter [facility]* Diagnosis Type 2 diabetes mellitus with hyperglycemia, with long-term current use of insulin (HCC)- Primary Primary hypertension Unspecified essential hypertension Obesity (BMI 30-39.9) Screening for prostate cancer- Primary Special screening for malignant neoplasm of prostate Type 2 diabetes mellitus with hyperglycemia, with long-term current use of insulin (HCC) Gastroesophageal reflux disease, unspecified whether esophagitis present Primary hypertension Unspecified essential hypertension Mixed hyperlipidemia Mixed hyperlipidemia Hypertrophic cardiomyopathy (HCC) Other primary cardiomyopathies Chronic myeloid leukemia, BCR/ABL-positive, 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) Other hypertrophic cardiomyopathy (I42.2) Other hypertrophic cardiomyopathy Localized swelling on left hand- Primary Obesity (BMI 30-39.9) Type 2 diabetes mellitus with hyperglycemia, with long-term current use of insulin (HCC) GENET (obstructive sleep apnea)- Primary Obstructive sleep apnea (adult) (pediatric) Primary hypertension Unspecified essential hypertension Diabetic polyneuropathy associated with type 2 diabetes mellitus (HCC) Hypertrophic cardiomyopathy (HCC) Other primary cardiomyopathies Type 2 diabetes mellitus with hyperglycemia, with long-term current use of insulin (HCC) Obesity (BMI 30-39.9) Chronic myeloid leukemia (HCC) Chronic myeloid leukemia, without mention of having achieved remission Colon cancer screening Special screening for malignant neoplasms, colon Type 2 diabetes mellitus with hyperglycemia, with long-term current use of insulin (HCC)- Primary Morbid (severe) obesity due to excess calories (CMS-HCC) Obstructive sleep apnea (adult) (pediatric) Body mass index (BMI) 37.0-37.9, adult Primary hypertension Unspecified essential hypertension Type 2 diabetes mellitus with hyperglycemia, with long-term current use of insulin (HCC)- Primary Immunodeficiency due to conditions classified elsewhere (HCC) Essential (primary) hypertension Unspecified essential hypertension Morbid (severe) obesity due to excess calories (CMS-HCC) Chronic myeloid leukemia (HCC) Chronic myeloid leukemia, without mention of having achieved remission Primary hypertension Unspecified essential hypertension Mixed hyperlipidemia Mixed hyperlipidemia Bilateral hand pain Type 2 diabetes mellitus with hyperglycemia, with long-term current use of insulin (HCC)- Primary Obstructive sleep apnea (adult) (pediatric) Essential (primary) hypertension Unspecified essential hypertension Hypertrophic cardiomyopathy (HCC) Other primary cardiomyopathies Morbid (severe) obesity due to excess calories (CMS-HCC) Chronic myeloid leukemia (HCC) Chronic myeloid leukemia, without mention of having achieved remission Mixed hyperlipidemia Mixed hyperlipidemia Colon cancer screening Special screening for malignant neoplasms, colon Type 2 diabetes mellitus with hyperglycemia, with long-term current use of insulin (HCC)- Primary Morbid (severe) obesity due to excess calories ([facility]-HCC) Essential (primary) hypertension Unspecified essential hypertension Body mass index (BMI) 36.0-36.9, adult 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, BCR/ABL-positive, 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) Type 2 diabetes mellitus with hyperglycemia (HCC) senior living (current) use of insulin (HCC) Other hypertrophic cardiomyopathy (HCC) Other hypertrophic cardiomyopathy Type 2 diabetes mellitus with diabetic nephropathy (HCC) Mixed hyperlipidemia Mixed hyperlipidemia Obstructive sleep apnea (adult) (pediatric) Hypertrophic cardiomyopathy (HCC) Other primary cardiomyopathies LVH (left ventricular hypertrophy) Cardiomegaly Screening for prostate cancer Special screening for malignant neoplasm of prostate Primary hypertension Unspecified essential hypertension Type 2 diabetes mellitus with hyperglycemia, with long-term current use of insulin (HCC)- Primary Type 2 diabetes mellitus with diabetic polyneuropathy, with long-term current use of insulin (HCC) Essential (primary) hypertension Unspecified essential hypertension Morbid (severe) obesity due to excess calories ([facility]-HCC) Screening for prostate cancer Special screening for malignant neoplasm of prostate Primary hypertension Unspecified essential hypertension Mixed hyperlipidemia Mixed hyperlipidemia Tear of left supraspinatus tendon- Primary Left bicipital tenosynovitis Sprain of left shoulder, unspecified shoulder sprain type, initial encounter documented in this encounter [facility] HealthcareEvaluation note* Diagnosis Type 2 diabetes mellitus with hyperglycemia, with long-term current use of insulin (HCC)- Primary Primary hypertension Unspecified essential hypertension Obesity (BMI 30-39.9) Screening for prostate cancer- Primary Special screening for malignant neoplasm of prostate Type 2 diabetes mellitus with hyperglycemia, with long-term current use of insulin (HCC) Gastroesophageal reflux disease, unspecified whether esophagitis present Primary hypertension Unspecified essential hypertension Mixed hyperlipidemia Mixed hyperlipidemia Hypertrophic cardiomyopathy (HCC) Other primary cardiomyopathies Chronic myeloid leukemia, BCR/ABL-positive, 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) Other hypertrophic cardiomyopathy (I42.2) Other hypertrophic cardiomyopathy Localized swelling on left hand- Primary Obesity (BMI 30-39.9) Type 2 diabetes mellitus with hyperglycemia, with long-term current use of insulin (HCC) GENET (obstructive sleep apnea)- Primary Obstructive sleep apnea (adult) (pediatric) Primary hypertension Unspecified essential hypertension Diabetic polyneuropathy associated with type 2 diabetes mellitus (HCC) Hypertrophic cardiomyopathy (HCC) Other primary cardiomyopathies Type 2 diabetes mellitus with hyperglycemia, with long-term current use of insulin (HCC) Obesity (BMI 30-39.9) Chronic myeloid leukemia (HCC) Chronic myeloid leukemia, without mention of having achieved remission Colon cancer screening Special screening for malignant neoplasms, colon Type 2 diabetes mellitus with hyperglycemia, with long-term current use of insulin (HCC)- Primary Morbid (severe) obesity due to excess calories (CMS-HCC) Obstructive sleep apnea (adult) (pediatric) Body mass index (BMI) 37.0-37.9, adult Primary hypertension Unspecified essential hypertension Type 2 diabetes mellitus with hyperglycemia, with long-term current use of insulin (HCC)- Primary Immunodeficiency due to conditions classified elsewhere (HCC) Essential (primary) hypertension Unspecified essential hypertension Morbid (severe) obesity due to excess calories (CMS-HCC) Chronic myeloid leukemia (HCC) Chronic myeloid leukemia, without mention of having achieved remission Primary hypertension Unspecified essential hypertension Mixed hyperlipidemia Mixed hyperlipidemia Bilateral hand pain Type 2 diabetes mellitus with hyperglycemia, with long-term current use of insulin (HCC)- Primary Obstructive sleep apnea (adult) (pediatric) Essential (primary) hypertension Unspecified essential hypertension Hypertrophic cardiomyopathy (HCC) Other primary cardiomyopathies Morbid (severe) obesity due to excess calories (CMS-HCC) Chronic myeloid leukemia (HCC) Chronic myeloid leukemia, without mention of having achieved remission Mixed hyperlipidemia Mixed hyperlipidemia Colon cancer screening Special screening for malignant neoplasms, colon Type 2 diabetes mellitus with hyperglycemia, with long-term current use of insulin (HCC)- Primary Morbid (severe) obesity due to excess calories (CMS-HCC) Essential (primary) hypertension Unspecified essential hypertension Body mass index (BMI) 36.0-36.9, adult 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, BCR/ABL-positive, 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) Type 2 diabetes mellitus with hyperglycemia (HCC) senior living (current) use of insulin (HCC) Other hypertrophic cardiomyopathy (HCC) Other hypertrophic cardiomyopathy Type 2 diabetes mellitus with diabetic nephropathy (HCC) Mixed hyperlipidemia Mixed hyperlipidemia Obstructive sleep apnea (adult) (pediatric) Hypertrophic cardiomyopathy (HCC) Other primary cardiomyopathies LVH (left ventricular hypertrophy) Cardiomegaly Screening for prostate cancer Special screening for malignant neoplasm of prostate Primary hypertension Unspecified essential hypertension Type 2 diabetes mellitus with hyperglycemia, with long-term current use of insulin (HCC)- Primary Type 2 diabetes mellitus with diabetic polyneuropathy, with long-term current use of insulin (HCC) Essential (primary) hypertension Unspecified essential hypertension Morbid (severe) obesity due to excess calories (CMS-HCC) Screening for prostate cancer Special screening for malignant neoplasm of prostate Primary hypertension Unspecified essential hypertension Mixed hyperlipidemia Mixed hyperlipidemia Gastroesophageal reflux disease without esophagitis- Primary Esophageal reflux Essential (primary) hypertension Unspecified essential hypertension Type 2 diabetes mellitus with hyperglycemia, with long-term current use of insulin (HCC) Morbid (severe) obesity due to excess calories (CMS-HCC) documented in this encounter [facility] HealthcareEvaluation note* Diagnosis Type 2 diabetes mellitus with hyperglycemia, with long-term current use of insulin (HCC)- Primary Primary hypertension Unspecified essential hypertension Obesity (BMI 30-39.9) Screening for prostate cancer- Primary Special screening for malignant neoplasm of prostate Type 2 diabetes mellitus with hyperglycemia, with long-term current use of insulin (HCC) Gastroesophageal reflux disease, unspecified whether esophagitis present Primary hypertension Unspecified essential hypertension Mixed hyperlipidemia Mixed hyperlipidemia Hypertrophic cardiomyopathy (HCC) Other primary cardiomyopathies Chronic myeloid leukemia, BCR/ABL-positive, 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) Other hypertrophic cardiomyopathy (I42.2) Other hypertrophic cardiomyopathy Localized swelling on left hand- Primary Obesity (BMI 30-39.9) Type 2 diabetes mellitus with hyperglycemia, with long-term current use of insulin (HCC) GENET (obstructive sleep apnea)- Primary Obstructive sleep apnea (adult) (pediatric) Primary hypertension Unspecified essential hypertension Diabetic polyneuropathy associated with type 2 diabetes mellitus (HCC) Hypertrophic cardiomyopathy (HCC) Other primary cardiomyopathies Type 2 diabetes mellitus with hyperglycemia, with long-term current use of insulin (HCC) Obesity (BMI 30-39.9) Chronic myeloid leukemia (HCC) Chronic myeloid leukemia, without mention of having achieved remission Colon cancer screening Special screening for malignant neoplasms, colon Type 2 diabetes mellitus with hyperglycemia, with long-term current use of insulin (HCC)- Primary Morbid (severe) obesity due to excess calories (CMS-HCC) Obstructive sleep apnea (adult) (pediatric) Body mass index (BMI) 37.0-37.9, adult Primary hypertension Unspecified essential hypertension Type 2 diabetes mellitus with hyperglycemia, with long-term current use of insulin (HCC)- Primary Immunodeficiency due to conditions classified elsewhere (HCC) Essential (primary) hypertension Unspecified essential hypertension Morbid (severe) obesity due to excess calories (CMS-HCC) Chronic myeloid leukemia (HCC) Chronic myeloid leukemia, without mention of having achieved remission Primary hypertension Unspecified essential hypertension Mixed hyperlipidemia Mixed hyperlipidemia Bilateral hand pain Type 2 diabetes mellitus with hyperglycemia, with long-term current use of insulin (HCC)- Primary Obstructive sleep apnea (adult) (pediatric) Essential (primary) hypertension Unspecified essential hypertension Hypertrophic cardiomyopathy (HCC) Other primary cardiomyopathies Morbid (severe) obesity due to excess calories (CMS-HCC) Chronic myeloid leukemia (HCC) Chronic myeloid leukemia, without mention of having achieved remission Mixed hyperlipidemia Mixed hyperlipidemia Colon cancer screening Special screening for malignant neoplasms, colon Type 2 diabetes mellitus with hyperglycemia, with long-term current use of insulin (HCC)- Primary Morbid (severe) obesity due to excess calories (CMS-HCC) Essential (primary) hypertension Unspecified essential hypertension Body mass index (BMI) 36.0-36.9, adult 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, BCR/ABL-positive, 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) Type 2 diabetes mellitus with hyperglycemia (HCC) termite helper (current) use of insulin (HCC) Other hypertrophic cardiomyopathy (HCC) Other hypertrophic cardiomyopathy Type 2 diabetes mellitus with diabetic nephropathy (HCC) Mixed hyperlipidemia Mixed hyperlipidemia Obstructive sleep apnea (adult) (pediatric) Hypertrophic cardiomyopathy (HCC) Other primary cardiomyopathies LVH (left ventricular hypertrophy) Cardiomegaly Screening for prostate cancer Special screening for malignant neoplasm of prostate Primary hypertension Unspecified essential hypertension Type 2 diabetes mellitus with hyperglycemia, with long-term current use of insulin (HCC)- Primary Type 2 diabetes mellitus with diabetic polyneuropathy, with long-term current use of insulin (HCC) Essential (primary) hypertension Unspecified essential hypertension Morbid (severe) obesity due to excess calories (CMS-HCC) Screening for prostate cancer Special screening for malignant neoplasm of prostate Primary hypertension Unspecified essential hypertension Mixed hyperlipidemia Mixed hyperlipidemia Gastroesophageal reflux disease without esophagitis- Primary Esophageal reflux Essential (primary) hypertension Unspecified essential hypertension Type 2 diabetes mellitus with hyperglycemia, with long-term current use of insulin (HCC) Morbid (severe) obesity due to excess calories (CMS-HCC) Tear of left supraspinatus tendon- Primary Left bicipital tenosynovitis Sprain of left shoulder, unspecified shoulder sprain type, initial encounter documented in this encounter [facility] HealthcareEvaluation note* Diagnosis Type 2 diabetes mellitus with hyperglycemia, with long-term current use of insulin (HCC)- Primary Primary hypertension Unspecified essential hypertension Obesity (BMI 30-39.9) Screening for prostate cancer- Primary Special screening for malignant neoplasm of prostate Type 2 diabetes mellitus with hyperglycemia, with long-term current use of insulin (HCC) Gastroesophageal reflux disease, unspecified whether esophagitis present Primary hypertension Unspecified essential hypertension Mixed hyperlipidemia Mixed hyperlipidemia Hypertrophic cardiomyopathy (HCC) Other primary cardiomyopathies Chronic myeloid leukemia, BCR/ABL-positive, 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) Other hypertrophic cardiomyopathy (I42.2) Other hypertrophic cardiomyopathy Localized swelling on left hand- Primary Obesity (BMI 30-39.9) Type 2 diabetes mellitus with hyperglycemia, with long-term current use of insulin (HCC) GENET (obstructive sleep apnea)- Primary Obstructive sleep apnea (adult) (pediatric) Primary hypertension Unspecified essential hypertension Diabetic polyneuropathy associated with type 2 diabetes mellitus (HCC) Hypertrophic cardiomyopathy (HCC) Other primary cardiomyopathies Type 2 diabetes mellitus with hyperglycemia, with long-term current use of insulin ([facility]) Obesity (BMI 30-39.9) Chronic myeloid leukemia (HCC) Chronic myeloid leukemia, without mention of having achieved remission Colon cancer screening Special screening for malignant neoplasms, colon Type 2 diabetes mellitus with hyperglycemia, with long-term current use of insulin ([facility])- Primary Morbid (severe) obesity due to excess calories ([facility]) Obstructive sleep apnea (adult) (pediatric) Body mass index (BMI) 37.0-37.9, adult Primary hypertension Unspecified essential hypertension Type 2 diabetes mellitus with hyperglycemia, with long-term current use of insulin ([facility])- Primary Immunodeficiency due to conditions classified elsewhere ([facility]) Essential (primary) hypertension Unspecified essential hypertension Morbid (severe) obesity due to excess calories ([facility]-HCC) Chronic myeloid leukemia (HCC) Chronic myeloid leukemia, without mention of having achieved remission Primary hypertension Unspecified essential hypertension Mixed hyperlipidemia Mixed hyperlipidemia Bilateral hand pain Type 2 diabetes mellitus with hyperglycemia, with long-term current use of insulin ([facility])- Primary Obstructive sleep apnea (adult) (pediatric) Essential (primary) hypertension Unspecified essential hypertension Hypertrophic cardiomyopathy (HCC) Other primary cardiomyopathies Morbid (severe) obesity due to excess calories ([facility]-HCC) Chronic myeloid leukemia (HCC) Chronic myeloid leukemia, without mention of having achieved remission Mixed hyperlipidemia Mixed hyperlipidemia Colon cancer screening Special screening for malignant neoplasms, colon Type 2 diabetes mellitus with hyperglycemia, with long-term current use of insulin ([facility])- Primary Morbid (severe) obesity due to excess calories ([facility]-HCC) Essential (primary) hypertension Unspecified essential hypertension Body mass index (BMI) 36.0-36.9, adult 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, BCR/ABL-positive, 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) Type 2 diabetes mellitus with hyperglycemia (HCC) senior living (current) use of insulin (HCC) Other hypertrophic cardiomyopathy (HCC) Other hypertrophic cardiomyopathy Type 2 diabetes mellitus with diabetic nephropathy (HCC) Mixed hyperlipidemia Mixed hyperlipidemia Obstructive sleep apnea (adult) (pediatric) Hypertrophic cardiomyopathy (HCC) Other primary cardiomyopathies LVH (left ventricular hypertrophy) Cardiomegaly Screening for prostate cancer Special screening for malignant neoplasm of prostate Primary hypertension Unspecified essential hypertension Type 2 diabetes mellitus with hyperglycemia, with long-term current use of insulin (HCC)- Primary Type 2 diabetes mellitus with diabetic polyneuropathy, with long-term current use of insulin (HCC) Essential (primary) hypertension Unspecified essential hypertension Morbid (severe) obesity due to excess calories ([facility]) Screening for prostate cancer Special screening for malignant neoplasm of prostate Primary hypertension Unspecified essential hypertension Mixed hyperlipidemia Mixed hyperlipidemia Gastroesophageal reflux disease without esophagitis- Primary Esophageal reflux Essential (primary) hypertension Unspecified essential hypertension Type 2 diabetes mellitus with hyperglycemia, with long-term current use of insulin (HCC) Morbid (severe) obesity due to excess calories ([facility]) Sprain of left shoulder, initial encounter- Primary Tear of left supraspinatus tendon documented in this encounter [facility] HealthcareEvaluation note* Diagnosis Type 2 diabetes mellitus with hyperglycemia, with long-term current use of insulin (HCC)- Primary Primary hypertension Unspecified essential hypertension Obesity (BMI 30-39.9) Screening for prostate cancer- Primary Special screening for malignant neoplasm of prostate Type 2 diabetes mellitus with hyperglycemia, with long-term current use of insulin (HCC) Gastroesophageal reflux disease, unspecified whether esophagitis present Primary hypertension Unspecified essential hypertension Mixed hyperlipidemia Mixed hyperlipidemia Hypertrophic cardiomyopathy (HCC) Other primary cardiomyopathies Chronic myeloid leukemia, BCR/ABL-positive, 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) Other hypertrophic cardiomyopathy (I42.2) Other hypertrophic cardiomyopathy Localized swelling on left hand- Primary Obesity (BMI 30-39.9) Type 2 diabetes mellitus with hyperglycemia, with long-term current use of insulin (HCC) GENET (obstructive sleep apnea)- Primary Obstructive sleep apnea (adult) (pediatric) Primary hypertension Unspecified essential hypertension Diabetic polyneuropathy associated with type 2 diabetes mellitus (HCC) Hypertrophic cardiomyopathy (HCC) Other primary cardiomyopathies Type 2 diabetes mellitus with hyperglycemia, with long-term current use of insulin (HCC) Obesity (BMI 30-39.9) Chronic myeloid leukemia (HCC) Chronic myeloid leukemia, without mention of having achieved remission Colon cancer screening Special screening for malignant neoplasms, colon Type 2 diabetes mellitus with hyperglycemia, with long-term current use of insulin (HCC)- Primary Morbid (severe) obesity due to excess calories (CMS-HCC) Obstructive sleep apnea (adult) (pediatric) Body mass index (BMI) 37.0-37.9, adult Primary hypertension Unspecified essential hypertension Type 2 diabetes mellitus with hyperglycemia, with long-term current use of insulin (HCC)- Primary Immunodeficiency due to conditions classified elsewhere (HCC) Essential (primary) hypertension Unspecified essential hypertension Morbid (severe) obesity due to excess calories (CMS-HCC) Chronic myeloid leukemia (HCC) Chronic myeloid leukemia, without mention of having achieved remission Primary hypertension Unspecified essential hypertension Mixed hyperlipidemia Mixed hyperlipidemia Bilateral hand pain Type 2 diabetes mellitus with hyperglycemia, with long-term current use of insulin (HCC)- Primary Obstructive sleep apnea (adult) (pediatric) Essential (primary) hypertension Unspecified essential hypertension Hypertrophic cardiomyopathy (HCC) Other primary cardiomyopathies Morbid (severe) obesity due to excess calories (CMS-HCC) Chronic myeloid leukemia (HCC) Chronic myeloid leukemia, without mention of having achieved remission Mixed hyperlipidemia Mixed hyperlipidemia Colon cancer screening Special screening for malignant neoplasms, colon Type 2 diabetes mellitus with hyperglycemia, with long-term current use of insulin (HCC)- Primary Morbid (severe) obesity due to excess calories (CMS-HCC) Essential (primary) hypertension Unspecified essential hypertension Body mass index (BMI) 36.0-36.9, adult 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, BCR/ABL-positive, 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) Type 2 diabetes mellitus with hyperglycemia (HCC) senior living (current) use of insulin (HCC) Other hypertrophic cardiomyopathy (HCC) Other hypertrophic cardiomyopathy Type 2 diabetes mellitus with diabetic nephropathy (HCC) Mixed hyperlipidemia Mixed hyperlipidemia Obstructive sleep apnea (adult) (pediatric) Hypertrophic cardiomyopathy (HCC) Other primary cardiomyopathies LVH (left ventricular hypertrophy) Cardiomegaly Screening for prostate cancer Special screening for malignant neoplasm of prostate Primary hypertension Unspecified essential hypertension Type 2 diabetes mellitus with hyperglycemia, with long-term current use of insulin (HCC)- Primary Type 2 diabetes mellitus with diabetic polyneuropathy, with long-term current use of insulin (HCC) Essential (primary) hypertension Unspecified essential hypertension Morbid (severe) obesity due to excess calories ([facility]-HCC) Screening for prostate cancer Special screening for malignant neoplasm of prostate Primary hypertension Unspecified essential hypertension Mixed hyperlipidemia Mixed hyperlipidemia Gastroesophageal reflux disease without esophagitis- Primary Esophageal reflux Essential (primary) hypertension Unspecified essential hypertension Type 2 diabetes mellitus with hyperglycemia, with long-term current use of insulin (HCC) Morbid (severe) obesity due to excess calories (CMS-HCC) Tear of left supraspinatus tendon- Primary Left bicipital tenosynovitis Sprain of left shoulder, unspecified shoulder sprain type, initial encounter documented in this encounter [facility] HealthcareEvaluation note* Diagnosis Type 2 diabetes mellitus with hyperglycemia, with long-term current use of insulin (HCC)- Primary Primary hypertension Unspecified essential hypertension Obesity (BMI 30-39.9) Screening for prostate cancer- Primary Special screening for malignant neoplasm of prostate Type 2 diabetes mellitus with hyperglycemia, with long-term current use of insulin (HCC) Gastroesophageal reflux disease, unspecified whether esophagitis present Primary hypertension Unspecified essential hypertension Mixed hyperlipidemia Mixed hyperlipidemia Hypertrophic cardiomyopathy (HCC) Other primary cardiomyopathies Chronic myeloid leukemia, BCR/ABL-positive, 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) Other hypertrophic cardiomyopathy (I42.2) Other hypertrophic cardiomyopathy Localized swelling on left hand- Primary Obesity (BMI 30-39.9) Type 2 diabetes mellitus with hyperglycemia, with long-term current use of insulin (HCC) GENET (obstructive sleep apnea)- Primary Obstructive sleep apnea (adult) (pediatric) Primary hypertension Unspecified essential hypertension Diabetic polyneuropathy associated with type 2 diabetes mellitus (HCC) Hypertrophic cardiomyopathy (HCC) Other primary cardiomyopathies Type 2 diabetes mellitus with hyperglycemia, with long-term current use of insulin (HCC) Obesity (BMI 30-39.9) Chronic myeloid leukemia (HCC) Chronic myeloid leukemia, without mention of having achieved remission Colon cancer screening Special screening for malignant neoplasms, colon Type 2 diabetes mellitus with hyperglycemia, with long-term current use of insulin (HCC)- Primary Morbid (severe) obesity due to excess calories (CMS-HCC) Obstructive sleep apnea (adult) (pediatric) Body mass index (BMI) 37.0-37.9, adult Primary hypertension Unspecified essential hypertension Type 2 diabetes mellitus with hyperglycemia, with long-term current use of insulin (HCC)- Primary Immunodeficiency due to conditions classified elsewhere (HCC) Essential (primary) hypertension Unspecified essential hypertension Morbid (severe) obesity due to excess calories (CMS-HCC) Chronic myeloid leukemia (HCC) Chronic myeloid leukemia, without mention of having achieved remission Primary hypertension Unspecified essential hypertension Mixed hyperlipidemia Mixed hyperlipidemia Bilateral hand pain Type 2 diabetes mellitus with hyperglycemia, with long-term current use of insulin (HCC)- Primary Obstructive sleep apnea (adult) (pediatric) Essential (primary) hypertension Unspecified essential hypertension Hypertrophic cardiomyopathy (HCC) Other primary cardiomyopathies Morbid (severe) obesity due to excess calories (CMS-HCC) Chronic myeloid leukemia (HCC) Chronic myeloid leukemia, without mention of having achieved remission Mixed hyperlipidemia Mixed hyperlipidemia Colon cancer screening Special screening for malignant neoplasms, colon Type 2 diabetes mellitus with hyperglycemia, with long-term current use of insulin (HCC)- Primary Morbid (severe) obesity due to excess calories (CMS-HCC) Essential (primary) hypertension Unspecified essential hypertension Body mass index (BMI) 36.0-36.9, adult 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, BCR/ABL-positive, 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) Type 2 diabetes mellitus with hyperglycemia (HCC) termite helper (current) use of insulin (HCC) Other hypertrophic cardiomyopathy (HCC) Other hypertrophic cardiomyopathy Type 2 diabetes mellitus with diabetic nephropathy (HCC) Mixed hyperlipidemia Mixed hyperlipidemia Obstructive sleep apnea (adult) (pediatric) Hypertrophic cardiomyopathy (HCC) Other primary cardiomyopathies LVH (left ventricular hypertrophy) Cardiomegaly Screening for prostate cancer Special screening for malignant neoplasm of prostate Primary hypertension Unspecified essential hypertension Type 2 diabetes mellitus with hyperglycemia, with long-term current use of insulin (HCC)- Primary Type 2 diabetes mellitus with diabetic polyneuropathy, with long-term current use of insulin (HCC) Essential (primary) hypertension Unspecified essential hypertension Morbid (severe) obesity due to excess calories (CMS-HCC) Screening for prostate cancer Special screening for malignant neoplasm of prostate Primary hypertension Unspecified essential hypertension Mixed hyperlipidemia Mixed hyperlipidemia Gastroesophageal reflux disease without esophagitis- Primary Esophageal reflux Essential (primary) hypertension Unspecified essential hypertension Type 2 diabetes mellitus with hyperglycemia, with long-term current use of insulin (HCC) Morbid (severe) obesity due to excess calories (CMS-HCC) Tear of left supraspinatus tendon- Primary Left bicipital tenosynovitis Sprain of left shoulder, unspecified shoulder sprain type, initial encounter documented in this encounter [facility] HealthcareEvaluation note* Diagnosis Type 2 diabetes mellitus with hyperglycemia, with long-term current use of insulin (HCC)- Primary Primary hypertension Unspecified essential hypertension Obesity (BMI 30-39.9) Screening for prostate cancer- Primary Special screening for malignant neoplasm of prostate Type 2 diabetes mellitus with hyperglycemia, with long-term current use of insulin (HCC) Gastroesophageal reflux disease, unspecified whether esophagitis present Primary hypertension Unspecified essential hypertension Mixed hyperlipidemia Mixed hyperlipidemia Hypertrophic cardiomyopathy (HCC) Other primary cardiomyopathies Chronic myeloid leukemia, BCR/ABL-positive, 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) Other hypertrophic cardiomyopathy (I42.2) Other hypertrophic cardiomyopathy Localized swelling on left hand- Primary Obesity (BMI 30-39.9) Type 2 diabetes mellitus with hyperglycemia, with long-term current use of insulin (HCC) GENET (obstructive sleep apnea)- Primary Obstructive sleep apnea (adult) (pediatric) Primary hypertension Unspecified essential hypertension Diabetic polyneuropathy associated with type 2 diabetes mellitus (HCC) Hypertrophic cardiomyopathy (HCC) Other primary cardiomyopathies Type 2 diabetes mellitus with hyperglycemia, with long-term current use of insulin (HCC) Obesity (BMI 30-39.9) Chronic myeloid leukemia (HCC) Chronic myeloid leukemia, without mention of having achieved remission Colon cancer screening Special screening for malignant neoplasms, colon Type 2 diabetes mellitus with hyperglycemia, with long-term current use of insulin (HCC)- Primary Morbid (severe) obesity due to excess calories ([facility]-HCC) Obstructive sleep apnea (adult) (pediatric) Body mass index (BMI) 37.0-37.9, adult Primary hypertension Unspecified essential hypertension Type 2 diabetes mellitus with hyperglycemia, with long-term current use of insulin (HCC)- Primary Immunodeficiency due to conditions classified elsewhere ([facility]) Essential (primary) hypertension Unspecified essential hypertension Morbid (severe) obesity due to excess calories (CMS-HCC) Chronic myeloid leukemia (HCC) Chronic myeloid leukemia, without mention of having achieved remission Primary hypertension Unspecified essential hypertension Mixed hyperlipidemia Mixed hyperlipidemia Bilateral hand pain Type 2 diabetes mellitus with hyperglycemia, with long-term current use of insulin (HCC)- Primary Obstructive sleep apnea (adult) (pediatric) Essential (primary) hypertension Unspecified essential hypertension Hypertrophic cardiomyopathy (HCC) Other primary cardiomyopathies Morbid (severe) obesity due to excess calories (CMS-HCC) Chronic myeloid leukemia (HCC) Chronic myeloid leukemia, without mention of having achieved remission Mixed hyperlipidemia Mixed hyperlipidemia Colon cancer screening Special screening for malignant neoplasms, colon Type 2 diabetes mellitus with hyperglycemia, with long-term current use of insulin (HCC)- Primary Morbid (severe) obesity due to excess calories (CMS-HCC) Essential (primary) hypertension Unspecified essential hypertension Body mass index (BMI) 36.0-36.9, adult 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, BCR/ABL-positive, 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) Type 2 diabetes mellitus with hyperglycemia (HCC) senior living (current) use of insulin (HCC) Other hypertrophic cardiomyopathy (HCC) Other hypertrophic cardiomyopathy Type 2 diabetes mellitus with diabetic nephropathy (HCC) Mixed hyperlipidemia Mixed hyperlipidemia Obstructive sleep apnea (adult) (pediatric) Hypertrophic cardiomyopathy (HCC) Other primary cardiomyopathies LVH (left ventricular hypertrophy) Cardiomegaly Screening for prostate cancer Special screening for malignant neoplasm of prostate Primary hypertension Unspecified essential hypertension Type 2 diabetes mellitus with hyperglycemia, with long-term current use of insulin (HCC)- Primary Type 2 diabetes mellitus with diabetic polyneuropathy, with long-term current use of insulin (HCC) Essential (primary) hypertension Unspecified essential hypertension Morbid (severe) obesity due to excess calories (CMS-HCC) Screening for prostate cancer Special screening for malignant neoplasm of prostate Primary hypertension Unspecified essential hypertension Mixed hyperlipidemia Mixed hyperlipidemia Gastroesophageal reflux disease without esophagitis- Primary Esophageal reflux Essential (primary) hypertension Unspecified essential hypertension Type 2 diabetes mellitus with hyperglycemia, with long-term current use of insulin (HCC) Morbid (severe) obesity due to excess calories (CMS-HCC) Tear of left supraspinatus tendon- Primary Left bicipital tenosynovitis Sprain of left shoulder, unspecified shoulder sprain type, initial encounter documented in this encounter [facility] HealthcareEvaluation note* Diagnosis Primary hypertension- Primary Unspecified essential hypertension Palpitations Cardiomyopathy, hypertrophic (CMS-HCC) LVH (left ventricular hypertrophy) Cardiomegaly GENET (obstructive sleep apnea) Obstructive sleep apnea (adult) (pediatric) Atrial flutter (CMS-HCC) Tachycardia Unspecified tachycardia Nonrheumatic pulmonary valve stenosis Essential hypertension Unspecified essential hypertension [facility] Outpatient Procedure (Routine) - Pending Review Specialty Diagnoses / Procedures Referred By Contac t Referred To Contact [facility] [place] Diagnoses CML (chronic myeloid leukemia) (HCC) Procedures ECHO ECHO TTHRC R-T 2D W/WOM-MODE COMPL SPEC&[place] [address] [place] [address] [facility] [address] Referral ID Status Reason Start Date Expiration Date Visits Requested Visits Authorized [id number] Pending Review Auto-Generat ed Referral 09/10/2021 09/10/2022 1 1 * Outpatient Procedure (Routine) - Pending Review Specialty Diagnoses / Procedures Referred By Contac t Referred To Contact [facility] [place] Diagnoses CML (chronic myeloid leukemia) (HCC) Procedures ECG COMPLETE ECG ROUTINE ECG W/LEAST 12 LDS W/I&[place] [address] [place] [address] [facility] [place] [address] Referral ID Status Reason Start Date Expiration Date Visits Requested Visits Authorized [id number] Pending Review Auto-Generat ed Referral 09/10/2021 09/10/2022 1 1 [facility] for referral (narrative)* Outpatient Procedure (Routine) - Authorized Specialty Diagnoses / Procedures Referred By Contac t Referred To Contact [facility] [place] Diagnoses CML (chronic myeloid leukemia) (HCC) Procedures ECG COMPLETE ECG ROUTINE ECG W/LEAST 12 LDS W/I&[place] [address] [place] [address] [facility] [place] [address] [place] [address] Referral ID Status Reason Start Date Expiration Date Visits Requested Visits Authorized [id number] Authorized Auto-Generat ed Referral 11/27/2021 11/26/2022 1 1 * Outpatient Procedure (Routine) - Authorized Specialty Diagnoses / Procedures Referred By Contac t Referred [facility] Diagnoses CML (chronic myeloid leukemia) (HCC) Procedures ECHO ECHO TTHRC R-T 2D W/WOM-MODE COMPL SPEC&COLR [place] [address] [place] [id number] [facility] [address] [address] Referral ID Status Reason Start Date Expiration Date Visits Requested Visits Authorized [id number] Authorized Auto-Generat ed Referral 11/27/2021 11/26/2022 1 1 [facility] for referral (narrative)* Outpatient Procedure (Routine) - Pending Review Specialty Diagnoses / Procedures Referred By Contac t Referred To Contact [facility] [place] Diagnoses CML (chronic myeloid leukemia) (HCC) Procedures ECG COMPLETE ECG ROUTINE ECG W/LEAST 12 LDS W/I&R [place] [address] [place] [address] [facility] [address] [address] Referral ID Status Reason Start Date Expiration Date Visits Requested Visits Authorized [id number] Pending Review Auto-Generat ed Referral 12/04/2021 12/03/2022 1 1 [facility] for referral (narrative)* Outpatient Procedure (Routine) - Pending Review Specialty Diagnoses / Procedures Referred By Contac t Referred To [facility] Diagnoses CML (chronic myeloid leukemia) (HCC) Procedures ECHO ECHO TTHRC R-T 2D W/WOM-MODE COMPL SPEC&[place]R [place] [address] [place] [address] [facility] [address] [address] Referral ID Status Reason Start Date Expiration Date Visits Requested Visits Authorized [id number] Pending Review Auto-Generat ed Referral 01/14/2022 01/10/2023 1 1 [facility] for referral (narrative)* Outpatient Procedure (Routine) - Pending Review Specialty Diagnoses / Procedures Referred By Contac t Referred To Contact [facility] [place] Diagnoses CML (chronic myelocytic leukemia) (HCC) Procedures ECHO ECHO TTHRC R-T 2D W/WOM-MODE COMPL SPEC&[place] [address] [place] [address] [facility] [address] [address] Referral ID Status Reason Start Date Expiration Date Visits Requested Visits Authorized [id number] Pending Review Auto-Generat ed Referral 05/10/2023 1 1 [facility] for referral (narrative)* Outpatient Procedure (Routine) - Pending Review Specialty Diagnoses / Procedures Referred By Contac t Referred To Contact [facility] [place] Diagnoses CML (chronic myeloid leukemia) (HCC) Procedures ECHO ECHO TTHRC R-T 2D W/WOM-MODE COMPL SPEC&[place] [address] [place] [address] [facility] [address] [address] Referral ID Status Reason Start Date Expiration Date Visits Requested Visits Authorized [id number] Pending Review Auto-Generat ed Referral 12/05/2022 12/04/2023 1 1 [facility] for referral (narrative)* Outpatient Procedure (Routine) - Pending Review Specialty Diagnoses / Procedures Referred By Contac t Referred To Contact [facility] [place] Diagnoses Chronic myeloid leukemia (HCC) Procedures ECHO ECHO TTHRC R-T 2D W/WOM-MODE COMPL SPEC&[place]R [place] [address] [place] [id number] [address] [address] Referral ID Status Reason Start Date Expiration Date Visits Requested Visits Authorized [id number] Pending Review Auto-Generat ed Referral 01/23/2023 01/22/2024 1 1 * Outpatient Procedure (Routine) - Pending Review Specialty Diagnoses / Procedures Referred By Contac t Referred To Contact [facility] Diagnoses Chronic myeloid leukemia (HCC) Procedures ECG COMPLETE ECG ROUTINE ECG W/LEAST 12 LDS W/I&R William Howell MD, PhD [address] [place], [place] [id number] [address] [address] Referral ID Status Reason Start Date Expiration Date Visits Requested Visits Authorized [id number] Pending Review Auto-Generat ed Referral 04/16/2023 01/22/2024 1 1 * Outpatient Procedure (Routine) - Pending Review Specialty Diagnoses / Procedures Referred By Contac t Referred To Contact [facility] [place] Diagnoses Chronic myeloid leukemia (HCC) Procedures ECG COMPLETE ECG ROUTINE ECG W/LEAST 12 LDS W/I&R [place] [address] [place] [id number] [facility] [address] [place] [address] Referral ID Status Reason Start Date Expiration Date Visits Requested Visits Authorized [id number] Pending Review Auto-Generat ed Referral 04/16/2023 01/22/2024 1 1 * Outpatient Procedure (Routine) - Pending Review Specialty Diagnoses / Procedures Referred By Contac t Referred To Contact [facility] [place] Diagnoses Chronic myeloid leukemia (HCC) Procedures ECG COMPLETE ECG ROUTINE ECG W/LEAST 12 LDS W/I&[place] [address] [place] [address] [facility] [address] [place] [address] Referral ID Status Reason Start Date Expiration Date Visits Requested Visits Authorized [id number] Pending Review Auto-Generat ed Referral 04/16/2023 01/22/2024 1 1 [facility] for referral (narrative)* Outpatient Procedure (Routine) - Pending Review Specialty Diagnoses / Procedures Referred By Contac t Referred To Contact [facility] [place] Diagnoses Chronic myeloid leukemia (HCC) Procedures ECG COMPLETE ECG ROUTINE ECG W/LEAST 12 LDS W/I&[place] [address] [place] [address] [facility] [address] [place] [address] Referral ID Status Reason Start Date Expiration Date Visits Requested Visits Authorized [id number] Pending Review Auto-Generat ed Referral 12/24/2023 08/19/2024 1 1 * Outpatient Procedure (Routine) - Pending Review Specialty Diagnoses / Procedures Referred By Contac t Referred To Contact [facility] [place] Diagnoses Chronic myeloid leukemia (HCC) Procedures ECG COMPLETE ECG ROUTINE ECG W/LEAST 12 LDS W/I&R [place] [address] [place] [address] [facility] [place] [address] [place] [id number] Referral ID Status Reason Start Date Expiration Date Visits Requested Visits Authorized [id number] Pending Review Auto-Generat ed Referral 12/24/2023 08/19/2024 1 1 * Outpatient Procedure (Routine) - Pending Review Specialty Diagnoses / Procedures Referred By Contac t Referred To Contact [facility] [place] Diagnoses Chronic myeloid leukemia (HCC) Procedures ECG COMPLETE ECG ROUTINE ECG W/LEAST 12 LDS W/I&R William Howell MD, PhD [id number] [place] [address] [facility] [address] [address] Referral ID Status Reason Start Date Expiration Date Visits Requested Visits Authorized [id number] Pending Review Auto-Generat ed Referral 12/24/2023 08/19/2024 1 1 * Outpatient Procedure (Routine) - Pending Review Specialty Diagnoses / Procedures Referred By Contac t Referred To Contact [facility] Diagnoses Chronic myeloid leukemia (HCC) Procedures ECHO ECHO TTHRC R-T 2D W/WOM-MODE COMPL SPEC&[place] [address] [place] [address] [facility] [address] [place] [address] Referral ID Status Reason Start Date Expiration Date Visits Requested Visits Authorized [id number] Pending Review Auto-Generat ed Referral 12/24/2023 08/19/2024 1 1 [facility] for referral (narrative)* Outpatient Procedure (Routine) - New Request Specialty Diagnoses / Procedures Referred By Contac t Referred To Contact [facility] [place] Diagnoses Chronic myeloid leukemia (HCC) Procedures ECHO ECHO TTHRC R-T 2D W/WOM-MODE COMPL SPEC&[place]R [place] [address] [place] [address] [facility] [address] [address] Referral ID Status Reason Start Date Expiration Date Visits Requested Visits Authorized [id number] New Request Auto-Generat ed Referral 03/17/2024 12/15/2024 1 1 * Outpatient Procedure (Routine) - New Request Specialty Diagnoses / Procedures Referred By Contac t Referred To Contact [facility] [place] Diagnoses Chronic myeloid leukemia (HCC) Procedures ECG COMPLETE ECG ROUTINE ECG W/LEAST 12 LDS W/I&[place] [address] [place] [address] [facility] [address] [address] Referral ID Status Reason Start Date Expiration Date Visits Requested Visits Authorized [id number] New Request Auto-Generat ed Referral 03/17/2024 12/15/2024 1 1 * Outpatient Procedure (Routine) - New Request Specialty Diagnoses / Procedures Referred By Contac t Referred To Contact [facility] [place] Diagnoses Chronic myeloid leukemia (HCC) Procedures ECG COMPLETE ECG ROUTINE ECG W/LEAST 12 LDS W/I&R William Howell MD, PhD [address] [place], [place] [phone] [facility] [place] [address] [place] [address] Referral ID Status Reason Start Date Expiration Date Visits Requested Visits Authorized [id number] New Request Auto-Generat ed Referral 03/17/2024 12/15/2024 1 1 * Outpatient Procedure (Routine) - New Request Specialty Diagnoses / Procedures Referred By Yuri metzger Referred To [facility] Diagnoses Chronic myeloid leukemia (HCC) Procedures ECG COMPLETE ECG ROUTINE ECG W/LEAST 12 LDS W/I&[place] [address] [place] [address] [facility] [place] [address] [place] [address] Referral ID Status Reason Start Date Expiration Date Visits Requested Visits Authorized [id number] New Request Auto-Generat ed Referral 03/17/2024 12/15/2024 1 1 [facility] for referral (narrative)* Diagnostic Procedure Only (Routine) - Closed Specialty Diagnoses / Procedures Referred By Yuri metzger Referred To Contact XR IMAGING Diagnoses Right shoulder pain, unspecified chronicity Procedures XR SHOULDER ORTHO 4V AP/TRUE AP/LAT/OUTLET RIGHT RADEX SHOULDER COMPLETE MINIMUM 2 VIEWS Loco Wynn PA-C [address] [place] [address] [place] [id number] Referral ID Status Reason Start Date Expiration Date V isits Requested Visits Authorized [id number] Closed Auto-Generate d Referral 05/27/2023 06/24/2024 1 1 [facility] for referral (narrative)* Consultation (Routine) - Authorized Specialty Diagnoses / Procedures Referred By Yuri metzger Referred To Contact Physical Therapy Diagnoses Status post arthroscopy of right shoulder Procedures GA OFFICE/OUTPATIENT NEW HIGH MDM 60 MINUTES Jr. Kapil Kilpatrick, DO [address] [place] [address] [facility] [address] [place] [address] Referral ID Status Reason Start Date Expiration Date Visits Requested Visits Authorized [id number] Authorized Consult and Treat 03/01/2024 08/28/2024 1 1 [facility] for visit Narrative* Outpatient Procedure (Routine) - Closed Specialty Diagnoses / Procedures [facility] Diagnoses CML (chronic myeloid leukemia) (HCC) Procedures ECHO TTE W/DOPPLER, COMPLETE Connie Burns, SALES AGENT [employer].EAR NOSE THROAT PHYSICIAN [address] [place] [address] [facility] [place] [address] [place] [address] Referral ID Status Reason Start Date Expiration Date V isits Requested Visits Authorized [id number] Closed Auto-Generate d Referral 06/06/2021 06/06/2022 1 1 [facility] for visit Narrative* Diagnostic Procedure Only (Routine) - Closed Specialty Diagnoses / Procedures Referred By Contac t Referred To Contact XR IMAGING Diagnoses Right shoulder pain, unspecified chronicity Procedures XR SHOULDER ORTHO 4V AP/TRUE AP/LAT/OUTLET RIGHT RADEX SHOULDER COMPLETE MINIMUM 2 VIEWS Loco Wynn PA-C [address] [place] [address] [place] [id number] Referral ID Status Reason Start Date Expiration Date V isits Requested Visits Authorized [id number] Closed Auto-Generate d Referral 05/27/2023 06/24/2024 1 1 [facility] for visit Narrative* Rehabilitation - Outpatient (Routine) - Authorized Specialty Diagnoses / Procedures Referred By Contac t Referred To Contact Physical Therapy Diagnoses Tear of left supraspinatus tendon Procedures GA OFFICE/OUTPATIENT NEW HIGH MDM 60 MINUTES Yaniv Hernandez, ATHLETIC COACH [address] [place] [address] Phone: tel: fax: Lupillo Bahena, PT [address] [place] [address] Phone: tel: fax: Referral ID Status Reason Start Date Expiration Date Visits Requested Visits Authorized [id number] Authorized Specialty Services Required 09/01/2024 12/01/2024 24 24 [facility] Healthcare[facility] for visit Narrative* Auth/Cert (Routine) Specialty Diagnoses / Procedures Referred By Yuri metzger Referred To Contact ADMITTING Diagnoses CML (chronic myeloid leukemia) (HCC) 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] Procedures DIAGNOSTIC BONE MARROW BIOPSIES DIAGNOSTIC BONE MARROW BIOPSY(IES) [address] [place] [address] Referral ID Status Reason Start Date Expiration Date Visits Re quested Visits Authorized [id number] 1 1 [facility] for visit Narrative* Rehabilitation - Outpatient (Routine) - Closed Specialty Diagnoses / Procedures Referred By Yuri metzger Referred To Contact Physical Therapy Diagnoses Tear of left supraspinatus tendon Procedures GA OFFICE/OUTPATIENT NEW HIGH MDM 60 MINUTES Yaniv Hernandez, ATHLETIC COACH [address] [place] [address] Phone: tel: fax: Lupillo Bahena, PT [address] [place] [address] Phone: tel: fax: Referral ID Status Reason Start Date Expiration Date V isits Requested Visits Authorized [id number] Closed Specialty Services Required 09/01/2024 12/01/2024 24 24 [facility] HealthcareReason for visit Narrative* Auth/Cert (Routine) Specialty Diagnoses / Procedures Referred By Yuri metzger Referred To Contact HEMATOLOGY/ONCOLOGY Diagnoses Chronic myeloid leukemia, BCR/ABL-positive, 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) Procedures BONE MARROW ASPIRATE & BIOPSY Hematology/Oncology [address] [place] [id number] Phone: tel: Referral ID Status Reason Start Date Expiration Date Visits Re quested Visits Authorized [id number] 1 1 [facility] for visit Narrative* Rehabilitation - Outpatient (Routine) - Authorized Specialty Diagnoses / Procedures Referred By Yuri metzger Referred To Contact Physical Therapy Diagnoses Sprain of left shoulder, initial encounter Tear of left supraspinatus tendon Procedures GA OFFICE/OUTPATIENT NEW HIGH MDM 60 MINUTES Yaniv Hernandez, ATHLETIC COACH [place] [address] Phone: tel: fax: Lupillo Bahena Abiodun, PT [address] [place] [address] Phone: tel: fax: Referral ID Status Reason Start Date Expiration Date Visits Requested Visits Authorized [id number] Authorized Specialty Services Required 12/14/2024 03/16/2025 24 24 [facility] Medications Administered Section Inactive Administered Medications - up to 3 most recent administrations Medication Order MAR Action Action Date Dose Rate Site INV [id number] 30 mg TABLET (IRB ACTG 1920/20-998) 30 [...] Starting on Mildred 03/29/21 at 1123, Until Fri09/03/21 at 1314, Per Protocol - for use [...] 2:42 PM EST 1.3 mL Advance Directives Documents on File Type Date Recorded Patient Phlebotomy Instructor Expl anation Advance Directive(s) 05/19/2021 11:26 AM Advance Directive(s) 12/21/2020 1:15 PM Advance Directive(s) 09/14/2020 4:15 PM Advance Directive(s) 04/28/2020 10:31 AM Advance Directive(s) 07/27/2019 2:14 PM Advance Directive(s) 04/21/2018 2:12 PM Advance Directive(s) 04/24/2017 9:30 AM Advance Directive(s) 03/15/2016 7:50 AM Advance Directive(s) 03/12/2016 11:21 AM Documents on File Type Date Recorded Patient Phlebotomy Instructor Expl anation Advance Directive(s) 05/19/2021 11:26 AM Advance Directive(s) 12/21/2020 1:15 PM Advance Directive(s) 09/14/2020 4:15 PM Advance Directive(s) 04/28/2020 10:31 AM Advance Directive(s) 07/27/2019 2:14 PM Advance Directive(s) 04/21/2018 2:12 PM Advance Directive(s) 04/24/2017 9:30 AM Advance Directive(s) 03/15/2016 7:50 AM Advance Directive(s) 03/12/2016 11:21 AM Documents on File Type Date Recorded Patient Phlebotomy Instructor Expl anation Advance Directive(s) 11/15/2021 2:15 PM Advance Directive(s) 05/19/2021 11:26 AM Advance Directive(s) 12/21/2020 1:15 PM Advance Directive(s) 09/14/2020 4:15 PM Advance Directive(s) 04/28/2020 10:31 AM Advance Directive(s) 07/27/2019 2:14 PM Advance Directive(s) 04/21/2018 2:12 PM Advance Directive(s) 04/24/2017 9:30 AM Advance Directive(s) 03/15/2016 7:50 AM Advance Directive(s) 03/12/2016 11:21 AM Documents on File Type Date Recorded Patient Phlebotomy Instructor Expl anation Advance Directive(s) 11/15/2021 2:15 PM [...] (HCC) Procedures CONSULT TO DIABETES EDUCATION OFFICE/OUTPATIENT [facility] 60-74 MINUTES Alexx Dalal, SALES AGENT CASUALTY INSURANCE.EAR NOSE THROAT PHYSICIAN [address] [place] [address] Referral ID Status Reason Start Date Expiration Date Visits Requested Visits Authorized [id number] Authorized PCP Requested Referral 2 03/19/2023 1 1 Specialty Diagnoses / Procedures Referred By Contac t Referred To Contact Diagnoses Carpal tunnel syndrome on right Ulnar neuropathy of right upper extremity Procedures NVC 7-8 Nerves Clara Mantilla, [address] [place] [id number] Referral ID Status Reason Start Date Expiration Date V isits Requested Visits Authorized [id number] Pending Review 02/26/2024 08/24/2024 1 1 Specialty Diagnoses / Procedures Referred By Contac t Referred To Contact Diagnoses Abnormal ECG LVH (left ventricular hypertrophy) Hypertrophic cardiomyopathy (CMS-HCC) Palpitations Procedures Holter monitor 24-48 hour Yan Durham MD [address] [address] Referral ID Status Reason Start Date Expiration Date V isits Requested Visits Authorized [id number] Pending Review 06/30/2023 06/29/2024 1 1 Specialty Diagnoses / Procedures Referred By Contac t Referred To Contact Radiology Diagnoses Abnormal ECG LVH (left ventricular hypertrophy) Hypertrophic cardiomyopathy (CMS-HCC) Procedures MR cardiac for morphology with and without contrast Yan Durham MD [address] [place] [address] Referral ID Status Reason Start Date Expiration Date V isits Requested Visits Authorized [id number] Pending Review 06/30/2023 06/29/2024 1 1 Summary Purpose Family History Relationship Condition Age at Onset Recorded Date/T [...] or prosecute any alcohol or drug abuse patient.[facility]In the event this information is protected [...] or prosecute any alcohol or drug abuse patient.[facility] ClinicIn the event this information is protected by the Federal Confidentiality of Alcohol and Drug Abuse Patient Records regulations: The Federal rules restrict any use of the information to criminally investigate or prosecute any alcohol or drug abuse patient.[facility] ClinicIn the event this information is protected by the Federal Confidentiality of Alcohol and Drug Abuse Patient Records regulations: The Federal rules restrict any use of the information to criminally investigate or prosecute any alcohol or drug abuse patient.[facility] ClinicIn the event this information is protected by the Federal Confidentiality of Alcohol and Drug Abuse Patient Records regulations: The Federal rules restrict any use of the information to criminally investigate or prosecute any alcohol or drug abuse patient.[facility]In the event this information is protected by the Federal Confidentiality of Alcohol and Drug Abuse Patient Records regulations: The Federal rules restrict any use of the information to criminally investigate or prosecute any alcohol or drug abuse patient.[facility] ClinicIn the event this information is protected by the Federal Confidentiality of Alcohol and Drug Abuse Patient Records regulations: The Federal rules restrict any use of the information to criminally investigate or prosecute any alcohol or drug abuse patient.[facility] ClinicIn the event this information is protected by the Federal Confidentiality of Alcohol and Drug Abuse Patient Records regulations: The Federal rules restrict any use of the information to criminally investigate or prosecute any alcohol or drug abuse patient.[facility] ClinicIn the event this information is protected by the Federal Confidentiality of Alcohol and Drug Abuse Patient Records regulations: The Federal rules restrict any use of the information to criminally investigate or prosecute any alcohol or drug abuse patient.[facility] ClinicIn the event this information is protected by the Federal Confidentiality of Alcohol and Drug Abuse Patient Records regulations: The Federal rules restrict any use of the information to criminally investigate or prosecute any alcohol or drug abuse patient.[facility] ClinicIn the event this information is protected by the Federal Confidentiality of Alcohol and Drug Abuse Patient Records regulations: The Federal rules restrict any use of the information to criminally investigate or prosecute any alcohol or drug abuse patient.[facility] ClinicIn the event this information is protected by the Federal Confidentiality of Alcohol and Drug Abuse Patient Records regulations: The Federal rules restrict any use of the information to criminally investigate or prosecute any alcohol or drug abuse patient.[facility] ClinicIn the event this information is protected by the Federal Confidentiality of Alcohol and Drug Abuse Patient Records regulations: The Federal rules restrict any use of the information to criminally investigate or prosecute any alcohol or drug abuse patient.[facility] ClinicIn the event this information is protected by the Federal Confidentiality of Alcohol and Drug Abuse Patient Records regulations: The Federal rules restrict any use of the information to criminally investigate or prosecute any alcohol or drug abuse patient.[facility] ClinicIn the event this information is protected by the Federal Confidentiality of Alcohol and Drug Abuse Patient Records regulations: The Federal rules restrict any use of the information to criminally investigate or prosecute any alcohol or drug abuse patient.[facility] ClinicIn the event this information is protected by the Federal Confidentiality of Alcohol and Drug Abuse Patient Records regulations: The Federal rules restrict any use of the information to criminally investigate or prosecute any alcohol or drug abuse patient.[facility] ClinicIn the event this information is protected by the Federal Confidentiality of Alcohol and Drug Abuse Patient Records regulations: The Federal rules restrict any use of the information to criminally investigate or prosecute any alcohol or drug abuse patient.[facility] ClinicIn the event this information is protected by the Federal Confidentiality of Alcohol and Drug Abuse Patient Records regulations: The Federal rules restrict any use of the information to criminally investigate or prosecute any alcohol or drug abuse patient.[facility] ClinicIn the event this information is protected by the Federal Confidentiality of Alcohol and Drug Abuse Patient Records regulations: The Federal rules restrict any use of the information to criminally investigate or prosecute any alcohol or drug abuse patient.[facility] ClinicIn the event this information is protected by the Federal Confidentiality of Alcohol and Drug Abuse Patient Records regulations: The Federal rules restrict any use of the information to criminally investigate or prosecute any alcohol or drug abuse patient.[facility] ClinicIn the event this information is protected by the Federal Confidentiality of Alcohol and Drug Abuse Patient Records regulations: The Federal rules restrict any use of the information to criminally investigate or prosecute any alcohol or drug abuse patient.[facility] ClinicIn the event this information is protected by the Federal Confidentiality of Alcohol and Drug Abuse Patient Records regulations: The Federal rules restrict any use of the information to criminally investigate or prosecute any alcohol or drug abuse patient.[facility] ClinicIn the event this information is protected by the Federal Confidentiality of Alcohol and Drug Abuse Patient Records regulations: The Federal rules restrict any use of the information to criminally investigate or prosecute any alcohol or drug abuse patient.[facility] ClinicIn the event this information is protected by the Federal Confidentiality of Alcohol and Drug Abuse Patient Records regulations: The Federal rules restrict any use of the information to criminally investigate or prosecute any alcohol or drug abuse patient.[facility] ClinicIn the event this information is protected by the Federal Confidentiality of Alcohol and Drug Abuse Patient Records regulations: The Federal rules restrict any use of the information to criminally investigate or prosecute any alcohol or drug abuse patient.[facility] ClinicIn the event this information is protected by the Federal Confidentiality of Alcohol and Drug Abuse Patient Records regulations: The Federal rules restrict any use of the information to criminally investigate or prosecute any alcohol or drug abuse patient.[facility] ClinicIn the event this information is protected by the Federal Confidentiality of Alcohol and Drug Abuse Patient Records regulations: The Federal rules restrict any use of the information to criminally investigate or prosecute any alcohol or drug abuse patient.[facility] ClinicIn the event this information is protected by the Federal Confidentiality of Alcohol and Drug Abuse Patient Records regulations: The Federal rules restrict any use of the information to criminally investigate or prosecute any alcohol or drug abuse patient.[facility] ClinicIn the event this information is protected by the Federal Confidentiality of Alcohol and Drug Abuse Patient Records regulations: The Federal rules restrict any use of the information to criminally investigate or prosecute any alcohol or drug abuse patient.[facility] ClinicIn the event this information is protected by the Federal Confidentiality of Alcohol and Drug Abuse Patient Records regulations: The Federal rules restrict any use of the information to criminally investigate or prosecute any alcohol or drug abuse patient.[facility] ClinicIn the event this information is protected by the Federal Confidentiality of Alcohol and Drug Abuse Patient Records regulations: The Federal rules restrict any use of the information to criminally investigate or prosecute any alcohol or drug abuse patient.[facility] ClinicIn the event this information is protected by the Federal Confidentiality of Alcohol and Drug Abuse Patient Records regulations: The Federal rules restrict any use of the information to criminally investigate or prosecute any alcohol or drug abuse patient.[facility] ClinicIn the event this information is protected by the Federal Confidentiality of Alcohol and Drug Abuse Patient Records regulations: The Federal rules restrict any use of the information to criminally investigate or prosecute any alcohol or drug abuse patient.[facility] ClinicIn the event this information is protected by the Federal Confidentiality of Alcohol and Drug Abuse Patient Records regulations: The Federal rules restrict any use of the information to criminally investigate or prosecute any alcohol or drug abuse patient.[facility] ClinicIn the event this information is protected by the Federal Confidentiality of Alcohol and Drug Abuse Patient Records regulations: The Federal rules restrict any use of the information to criminally investigate or prosecute any alcohol or drug abuse patient.[facility] ClinicIn the event this information is protected by the Federal Confidentiality of Alcohol and Drug Abuse Patient Records regulations: The Federal rules restrict any use of the information to criminally investigate or prosecute any alcohol or drug abuse patient.[facility] ClinicIn the event this information is protected by the Federal Confidentiality of Alcohol and Drug Abuse Patient Records regulations: The Federal rules restrict any use of the information to criminally investigate or prosecute any alcohol or drug abuse patient.[facility] ClinicIn the event this information is protected by the Federal Confidentiality of Alcohol and Drug Abuse Patient Records regulations: The Federal rules restrict any use of the information to criminally investigate or prosecute any alcohol or drug abuse patient.[facility] ClinicIn the event this information is protected by the Federal Confidentiality of Alcohol and Drug Abuse Patient Records regulations: The Federal rules restrict any use of the information to criminally investigate or prosecute any alcohol or drug abuse patient.[facility] ClinicIn the event this information is protected by the Federal Confidentiality of Alcohol and Drug Abuse Patient Records regulations: The Federal rules restrict any use of the information to criminally investigate or prosecute any alcohol or drug abuse patient.[facility] ClinicIn the event this information is protected by the Federal Confidentiality of Alcohol and Drug Abuse Patient Records regulations: The Federal rules restrict any use of the information to criminally investigate or prosecute any alcohol or drug abuse patient.[facility] ClinicIn the event this information is protected by the Federal Confidentiality of Alcohol and Drug Abuse Patient Records regulations: The Federal rules restrict any use of the information to criminally investigate or prosecute any alcohol or drug abuse patient.[facility] ClinicIn the event this information is protected by the Federal Confidentiality of Alcohol and Drug Abuse Patient Records regulations: The Federal rules restrict any use of the information to criminally investigate or prosecute any alcohol or drug abuse patient.[facility] ClinicIn the event this information is protected by the Federal Confidentiality of Alcohol and Drug Abuse Patient Records regulations: The Federal rules restrict any use of the information to criminally investigate or prosecute any alcohol or drug abuse patient.[facility] ClinicIn the event this information is protected by the Federal Confidentiality of Alcohol and Drug Abuse Patient Records regulations: The Federal rules restrict any use of the information to criminally investigate or prosecute any alcohol or drug abuse patient.[facility] ClinicIn the event this information is protected by the Federal Confidentiality of Alcohol and Drug Abuse Patient Records regulations: The Federal rules restrict any use of the information to criminally investigate or prosecute any alcohol or drug abuse patient.[facility] ClinicIn the event this information is protected by the Federal Confidentiality of Alcohol and Drug Abuse Patient Records regulations: The Federal rules restrict any use of the information to criminally investigate or prosecute any alcohol or drug abuse patient.[facility] ClinicIn the event this information is protected by the Federal Confidentiality of Alcohol and Drug Abuse Patient Records regulations: The Federal rules restrict any use of the information to criminally investigate or prosecute any alcohol or drug abuse patient.[facility] ClinicIn the event this information is protected by the Federal Confidentiality of Alcohol and Drug Abuse Patient Records regulations: The Federal rules restrict any use of the information to criminally investigate or prosecute any alcohol or drug abuse patient.[facility] ClinicIn the event this information is protected by the Federal Confidentiality of Alcohol and Drug Abuse Patient Records regulations: The Federal rules restrict any use of the information to criminally investigate or prosecute any alcohol or drug abuse patient.[facility] ClinicIn the event this information is protected [...] or prosecute any alcohol or drug abuse patient.[facility] ClinicIn the event this information is protected by the Federal Confidentiality of Alcohol and Drug Abuse Patient Records regulations: The Federal rules restrict any use of the information to criminally investigate or prosecute any alcohol or drug abuse patient.[facility] ClinicIn the event this information is protected by the Federal Confidentiality of Alcohol and Drug Abuse Patient Records regulations: The Federal rules restrict any use of the information to criminally investigate or prosecute any alcohol or drug abuse patient.[facility] ClinicIn the event this information is protected by the Federal Confidentiality of Alcohol and Drug Abuse Patient Records regulations: The Federal rules restrict any use of the information to criminally investigate or prosecute any alcohol or drug abuse patient.[facility] ClinicIn the event this information is protected by the Federal Confidentiality of Alcohol and Drug Abuse Patient Records regulations: The Federal rules restrict any use of the information to criminally investigate or prosecute any alcohol or drug abuse patient.[facility] ClinicIn the event this information is protected by the Federal Confidentiality of Alcohol and Drug Abuse Patient Records regulations: The Federal rules restrict any use of the information to criminally investigate or prosecute any alcohol or drug abuse patient.[facility] ClinicIn the event this information is protected by the Federal Confidentiality of Alcohol and Drug Abuse Patient Records regulations: The Federal rules restrict any use of the information to criminally investigate or prosecute any alcohol or drug abuse patient.[facility] ClinicIn the event this information is protected by the Federal Confidentiality of Alcohol and Drug Abuse Patient Records regulations: The Federal rules restrict any use of the information to criminally investigate or prosecute any alcohol or drug abuse patient.[facility] ClinicIn the event this information is protected by the Federal Confidentiality of Alcohol and Drug Abuse Patient Records regulations: The Federal rules restrict any use of the information to criminally investigate or prosecute any alcohol or drug abuse patient.[facility] ClinicIn the event this information is protected by the Federal Confidentiality of Alcohol and Drug Abuse Patient Records regulations: The Federal rules restrict any use of the information to criminally investigate or prosecute any alcohol or drug abuse patient.[facility] ClinicIn the event this information is protected by the Federal Confidentiality of Alcohol and Drug Abuse Patient Records regulations: The Federal rules restrict any use of the information to criminally investigate or prosecute any alcohol or drug abuse patient.[facility] ClinicIn the event this information is protected by the Federal Confidentiality of Alcohol and Drug Abuse Patient Records regulations: The Federal rules restrict any use of the information to criminally investigate or prosecute any alcohol or drug abuse patient.[facility] ClinicIn the event this information is protected by the Federal Confidentiality of Alcohol and Drug Abuse Patient Records regulations: The Federal rules restrict any use of the information to criminally investigate or prosecute any alcohol or drug abuse patient.[facility] ClinicIn the event this information is protected by the Federal Confidentiality of Alcohol and Drug Abuse Patient Records regulations: The Federal rules restrict any use of the information to criminally investigate or prosecute any alcohol or drug abuse patient.[facility] ClinicIn the event this information is protected by the Federal Confidentiality of Alcohol and Drug Abuse Patient Records regulations: The Federal rules restrict any use of the information to criminally investigate or prosecute any alcohol or drug abuse patient.[facility] ClinicIn the event this information is protected by the Federal Confidentiality of Alcohol and Drug Abuse Patient Records regulations: The Federal rules restrict any use of the information to criminally investigate or prosecute any alcohol or drug abuse patient.[facility] ClinicIn the event this information is protected by the Federal Confidentiality of Alcohol and Drug Abuse Patient Records regulations: The Federal rules restrict any use of the information to criminally investigate or prosecute any alcohol or drug abuse patient.[facility] ClinicIn the event this information is protected by the Federal Confidentiality of Alcohol and Drug Abuse Patient Records regulations: The Federal rules restrict any use of the information to criminally investigate or prosecute any alcohol or drug abuse patient.[facility] ClinicIn the event this information is protected by the Federal Confidentiality of Alcohol and Drug Abuse Patient Records regulations: The Federal rules restrict any use of the information to criminally investigate or prosecute any alcohol or drug abuse patient.[facility] ClinicIn the event this information is protected by the Federal Confidentiality of Alcohol and Drug Abuse Patient Records regulations: The Federal rules restrict any use of the information to criminally investigate or prosecute any alcohol or drug abuse patient.[facility] ClinicIn the event this information is protected by the Federal Confidentiality of Alcohol and Drug Abuse Patient Records regulations: The Federal rules restrict any use of the information to criminally investigate or prosecute any alcohol or drug abuse patient.[facility] ClinicIn the event this information is protected by the Federal Confidentiality of Alcohol and Drug Abuse Patient Records regulations: The Federal rules restrict any use of the information to criminally investigate or prosecute any alcohol or drug abuse patient.[facility] ClinicIn the event this information is protected by the Federal Confidentiality of Alcohol and Drug Abuse Patient Records regulations: The Federal rules restrict any use of the information to criminally investigate or prosecute any alcohol or drug abuse patient.[facility] ClinicIn the event this information is protected by the Federal Confidentiality of Alcohol and Drug Abuse Patient Records regulations: The Federal rules restrict any use of the information to criminally investigate or prosecute any alcohol or drug abuse patient.[facility] ClinicIn the event this information is protected by the Federal Confidentiality of Alcohol and Drug Abuse Patient Records regulations: The Federal rules restrict any use of the information to criminally investigate or prosecute any alcohol or drug abuse patient.[facility] ClinicIn the event this information is protected by the Federal Confidentiality of Alcohol and Drug Abuse Patient Records regulations: The Federal rules restrict any use of the information to criminally investigate or prosecute any alcohol or drug abuse patient.[facility] ClinicIn the event this information is protected by the Federal Confidentiality of Alcohol and Drug Abuse Patient Records regulations: The Federal rules restrict any use of the information to criminally investigate or prosecute any alcohol or drug abuse patient.[facility] ClinicIn the event this information is protected by the Federal Confidentiality of Alcohol and Drug Abuse Patient Records regulations: The Federal rules restrict any use of the information to criminally investigate or prosecute any alcohol or drug abuse patient.[facility] ClinicIn the event this information is protected by the Federal Confidentiality of Alcohol and Drug Abuse Patient Records regulations: The Federal rules restrict any use of the information to criminally investigate or prosecute any alcohol or drug abuse patient.[facility] ClinicIn the event this information is protected by the Federal Confidentiality of Alcohol and Drug Abuse Patient Records regulations: The Federal rules restrict any use of the information to criminally investigate or prosecute any alcohol or drug abuse patient.[facility] ClinicIn the event this information is protected by the Federal Confidentiality of Alcohol and Drug Abuse Patient Records regulations: The Federal rules restrict any use of the information to criminally investigate or prosecute any alcohol or drug abuse patient.[facility] ClinicIn the event this information is protected by the Federal Confidentiality of Alcohol and Drug Abuse Patient Records regulations: The Federal rules restrict any use of the information to criminally investigate or prosecute any alcohol or drug abuse patient.[facility] ClinicIn the event this information is protected by the Federal Confidentiality of Alcohol and Drug Abuse Patient Records regulations: The Federal rules restrict any use of the information to criminally investigate or prosecute any alcohol or drug abuse patient.[facility] ClinicIn the event this information is protected by the Federal Confidentiality of Alcohol and Drug Abuse Patient Records regulations: The Federal rules restrict any use of the information to criminally investigate or prosecute any alcohol or drug abuse patient.[facility] ClinicIn the event this information is protected by the Federal Confidentiality of Alcohol and Drug Abuse Patient Records regulations: The Federal rules restrict any use of the information to criminally investigate or prosecute any alcohol or drug abuse patient.[facility] ClinicIn the event this information is protected by the Federal Confidentiality of Alcohol and Drug Abuse Patient Records regulations: The Federal rules restrict any use of the information to criminally investigate or prosecute any alcohol or drug abuse patient.[facility] ClinicIn the event this information is protected by the Federal Confidentiality of Alcohol and Drug Abuse Patient Records regulations: The Federal rules restrict any use of the information to criminally investigate or prosecute any alcohol or drug abuse patient.[facility] ClinicIn the event this information is protected by the Federal Confidentiality of Alcohol and Drug Abuse Patient Records regulations: The Federal rules restrict any use of the information to criminally investigate or prosecute any alcohol or drug abuse patient.[facility] ClinicIn the event this information is protected by the Federal Confidentiality of Alcohol and Drug Abuse Patient Records regulations: The Federal rules restrict any use of the information to criminally investigate or prosecute any alcohol or drug abuse patient.[facility] ClinicIn the event this information is protected by the Federal Confidentiality of Alcohol and Drug Abuse Patient Records regulations: The Federal rules restrict any use of the information to criminally investigate or prosecute any alcohol or drug abuse patient.[facility] ClinicIn the event this information is protected by the Federal Confidentiality of Alcohol and Drug Abuse Patient Records regulations: The Federal rules restrict any use of the information to criminally investigate or prosecute any alcohol or drug abuse patient.[facility] ClinicIn the event this information is protected by the Federal Confidentiality of Alcohol and Drug Abuse Patient Records regulations: The Federal rules restrict any use of the information to criminally investigate or prosecute any alcohol or drug abuse patient.[facility] ClinicIn the event this information is protected by the Federal Confidentiality of Alcohol and Drug Abuse Patient Records regulations: The Federal rules restrict any use of the information to criminally investigate or prosecute any alcohol or drug abuse patient.[facility] ClinicIn the event this information is protected by the Federal Confidentiality of Alcohol and Drug Abuse Patient Records regulations: The Federal rules restrict any use of the information to criminally investigate or prosecute any alcohol or drug abuse patient.[facility] ClinicIn the event this information is protected by the Federal Confidentiality of Alcohol and Drug Abuse Patient Records regulations: The Federal rules restrict any use of the information to criminally investigate or prosecute any alcohol or drug abuse patient.[facility] ClinicIn the event this information is protected by the Federal Confidentiality of Alcohol and Drug Abuse Patient Records regulations: The Federal rules restrict any use of the information to criminally investigate or prosecute any alcohol or drug abuse patient.[facility] ClinicIn the event this information is protected by the Federal Confidentiality of Alcohol and Drug Abuse Patient Records regulations: The Federal rules restrict any use of the information to criminally investigate or prosecute any alcohol or drug abuse patient.[facility] ClinicIn the event this information is protected by the Federal Confidentiality of Alcohol and Drug Abuse Patient Records regulations: The Federal rules restrict any use of the information to criminally investigate or prosecute any alcohol or drug abuse patient.[facility] ClinicIn the event this information is protected by the Federal Confidentiality of Alcohol and Drug Abuse Patient Records regulations: The Federal rules restrict any use of the information to criminally investigate or prosecute any alcohol or drug abuse patient.[facility] ClinicIn the event this information is protected [...] or prosecute any alcohol or drug abuse patient.[facility] ClinicIn the event this information is protected by the Federal Confidentiality of Alcohol and Drug Abuse Patient Records regulations: The Federal rules restrict any use of the information to criminally investigate or prosecute any alcohol or drug abuse patient.[facility] ClinicIn the event this information is protected by the Federal Confidentiality of Alcohol and Drug Abuse Patient Records regulations: The Federal rules restrict any use of the information to criminally investigate or prosecute any alcohol or drug abuse patient.[facility] ClinicIn the event this information is protected by the Federal Confidentiality of Alcohol and Drug Abuse Patient Records regulations: The Federal rules restrict any use of the information to criminally investigate or prosecute any alcohol or drug abuse patient.[facility] ClinicIn the event this information is protected by the Federal Confidentiality of Alcohol and Drug Abuse Patient Records regulations: The Federal rules restrict any use of the information to criminally investigate or prosecute any alcohol or drug abuse patient.[facility] ClinicIn the event this information is protected by the Federal Confidentiality of Alcohol and Drug Abuse Patient Records regulations: The Federal rules restrict any use of the information to criminally investigate or prosecute any alcohol or drug abuse patient.[facility] ClinicIn the event this information is protected by the Federal Confidentiality of Alcohol and Drug Abuse Patient Records regulations: The Federal rules restrict any use of the information to criminally investigate or prosecute any alcohol or drug abuse patient.[facility] ClinicIn the event this information is protected by the Federal Confidentiality of Alcohol and Drug Abuse Patient Records regulations: The Federal rules restrict any use of the information to criminally investigate or prosecute any alcohol or drug abuse patient.[facility] ClinicIn the event this information is protected by the Federal Confidentiality of Alcohol and Drug Abuse Patient Records regulations: The Federal rules restrict any use of the information to criminally investigate or prosecute any alcohol or drug abuse patient.[facility] Reason for Visit (unrecogniz ed section and content) Reason Comments Research ACTG 19198 c ycle 55 day 1 Specialty Diagnoses / Procedures Referred By Contac t Referred To Contact HEMATOLOGY/ONCOLOGY Diagnoses STUDY PT IRB -8/ACTG 1920 DX - C92.10 DATE , TIME PER SLIP PAULA Procedures NURSE RESEARCH 2 William Howell MD, PhD [address] [place] [address] Phone: tel: Paula Tuttle RN [address] [place] [address] Referral ID Status Reason Start Date Expiration Date V isits Requested Visits Authorized [id number] Authorized 06/16/2024 06/08/2025 99 99 Reason Comments Research [id number] -8 cy naeem 54 day 34 Referral ID Status Reason Start Date Expiration Date V isits Requested Visits Authorized [id number] New Request 09/15/2024 12/14/2024 1 1 Reason Comments Research ACTG 1920 / IRB - 98 cycle 18 day 28 Specialty Diagnoses / Procedures Referred By Contac t Referred To Contact HEMATOLOGY/ONCOLOGY Diagnoses study pt irb#20-998(actg 1920 c92.10 nct# date time per slip paula Procedures NURSE RESEARCH 2 [place] [address] [place] [address] Paula Tuttle, RN [address] [place] [address] Referral ID Status Reason Start Date Expiration Date Visits Re quested Visits Authorized [id number] Closed 10/13/2020 12/12/2020 1 1 Reason Comments Research ACTG 1919 / -8 c ycle 15 day 28 Reason Comments Research ACTG 1919 / IRB 20-9 98 reconsent Reason Comments Medication Problem Reason Comments Biopsy Request Reason Comments Patient Question Reason Comments Appointment Reason Comments Established Patient Specialty Diagnoses / Procedures Referred By Yuri metzger Referred To Contact Hematology/Oncology / HEMATOLOGY/ONCOLOGY Diagnoses Chronic myeloid leukemia, BCR/ABL-positive, not having achieved remission STUDY PT IRB# 20-998 C92.10 DATE TIME PER SLIP PAULA NCT# Procedures OFFICE/OUTPATIENT ESTABLISHED MOD MDM 30-39 MIN EST PATIENT/[place] [address] [place] [address] William Howell MD, PhD [id number] [place] [address] Referral ID Status Reason Start Date Expiration Date Visits Re quested Visits Authorized [id number] Closed 11/26/2021 06/08/2022 1 1 Reason Comments Biopsy Request needed for 05/16/2022 Reason Comments Research ACTG 1919 / IRB 20- 98 cycle 21 day 28 Specialty Diagnoses / Procedures Referred By Yuri metzger Referred To Contact HEMATOLOGY/ONCOLOGY Diagnoses Chronic myeloid [...] ECHO [place] [address] [place] [address] [place] [address] [address] [place] [phone] Referral ID Status Reason Start Date Expiration Date Visits Requested Visits Authorized [id number] Authorized OON/Self Pay Override 02/18/2022 06/08/2022 99 99 Specialty Diagnoses / Procedures Referred By Yuri t Referred To Contact Hematology/Oncology / HEMATOLOGY/ONCOLOGY Diagnoses CML (chronic myeloid leukemia) (HCC) STUDY PT IRB# 20-998 ACT 1920 C92.10 DATE TIME PER SLIP PAULA/АЛЕКСАНДР Procedures OFFICE/OUTPATIENT ESTABLISHED MOD MDM 30-39 MIN EST PATIENT/ASMT William Howell MD, PhD [id number] [place], [place] [id number] William Howell MD, PhD [id number] [place], [place] [id number] Referral ID Status Reason Start Date Expiration Date Visits Re quested Visits Authorized [id number] Closed 02/18/2022 06/08/2022 1 1 Reason Comments New Patient Referred by Dr. Portillo hernandez Specialty Diagnoses / Procedures Referred By Contact Referred To Contact Endocrinology / INITIAL DEPT Diagnoses CML (chronic myeloid leukemia) (HCC) Procedures CONSULT TO ENDOCRINOLOGY OFFICE/OUTPATIENT NEW HIGH MDM 60-74 MINUTES OFFICE/OUTPATIENT NEW MODERATE MDM 45-59 MINUTES [place] [address] [place] [address] Initial Department Referral ID Status Reason Start Date Expiration Date V isits Requested Visits Authorized [id number] Closed PCP Requested Referral 03/19/2022 06/08/2022 1 1 Reason Onset Date Comments Refill Request 05/13/2022 Reason Comments Diabetes Specialty Diagnoses / Procedures Referred By Yuri t Referred To Contact Endocrinology / ENDOCRINOLOGY Diagnoses 3 months (around 06/19/2022 Procedures EST DAMON PATIENT Alexx Dalal, JEANNIE.EAR NOSE THROAT PHYSICIAN [address] [place] [address] Alexx Dalal APRN.EAR NOSE THROAT PHYSICIAN [address] [place] [address] Referral ID Status Reason Start Date Expiration Date Visits Re quested Visits Authorized [id number] Closed 07/04/2022 06/08/2023 1 1 Reason Comments Research Study ARIA 2915/ACTG 1919 Survival Follow-up Reason Comments Diabetes Self Management Education Specialty Diagnoses / Procedures Referred By Contac t Referred To Contact INITIAL DEPT Diagnoses Uncontrolled type 2 diabetes mellitus with hyperglycemia (HCC) Procedures CONSULT TO DIABETES EDUCATION OFFICE/OUTPATIENT NEW HIGH MDM 60-74 MINUTES MEDICAL NUTRITION ASSMT&IVNTJ INDIV EACH 15 OK OFFICE/OUTPATIENT NEW MODERATE MDM 45-59 MINUTES Alexx Dalal, SALES AGENT [employer].EAR NOSE THROAT PHYSICIAN [address] [place] [address] Initial Department Referral ID Status Reason Start Date Expiration Date V isits Requested Visits Authorized [id number] Closed PCP Requested Referral 07/30/2022 06/08/2023 1 1 Reason Comments Research ACTG 1919/- Cyc le 27 day 28 visit Reason Comments Established Patient Follow-Up Specialty Diagnoses / Procedures Referred By Contac t Referred To Contact Hematology/Oncology / HEMATOLOGY/ONCOLOGY Diagnoses Chronic myeloid leukemia, BCR/ABL-positive, not having achieved remission STUDY PT IRB - ACTG 1919 DX - C92.10 DATE , TIME Procedures OFFICE/OUTPATIENT ESTABLISHED MOD MDM 30-39 MIN EST [place]IENT [place] [address] [place] [phone] [place] [address] [place] [address] Referral ID Status Reason Start Date Expiration Date Visits Re quested Visits Authorized [id number] Closed 08/05/2022 06/08/2023 1 1 Specialty Diagnoses / Procedures Referred By Contac t Referred To Contact Endocrinology / ENDOCRINOLOGY Diagnoses Follow-up exam Return in about 3 months (around 10/12/2022). Check out comments: Schedule with CDE Procedures OFFICE/OUTPATIENT ESTABLISHED MOD MDM 30-39 MIN EST DAMON PATIENT Self Alexx Dalal, SALES AGENT [employer] INSURANCE.EAR NOSE THROAT PHYSICIAN [address] [place] [address] Referral ID Status Reason Start Date Expiration Date Visits Re quested Visits Authorized [id number] Closed 10/15/2022 06/08/2023 1 1 Specialty Diagnoses / Procedures Referred By Contac t Referred To Contact Hematology/Oncology / HEMATOLOGY/ONCOLOGY Diagnoses Chronic myeloid leukemia, BCR/ABL-positive, not having achieved remission STUDY PT IRB /ACT 1920 DX - C92.10 DATE , TIME Reschedule per Paula Procedures OFFICE/OUTPATIENT ESTABLISHED MOD MDM 30-39 MIN EST [place]IENT [place] [address] [place] [phone] [place] [address] [place] [phone] Referral ID Status Reason Start Date Expiration Date Visits Re quested Visits Authorized [id number] Closed 10/30/2022 06/08/2023 1 1 Specialty Diagnoses / Procedures Referred By Contac t Referred To Contact Hematology/Oncology / HEMATOLOGY/ONCOLOGY Diagnoses CML (chronic myeloid leukemia) (HCC) STUDY PT IRB /ACT 0 DX - C92.10 DATE , TIME PER SLIP PAULA Procedures OFFICE/OUTPATIENT ESTABLISHED MOD MDM 30-39 MIN EST PATIENT William Howell MD, PhD [address] [place] [address] [place] [address] [place] [address] Referral ID Status Reason Start Date Expiration Date Visits Re quested Visits Authorized [id number] Closed 12/25/2022 06/08/2023 1 1 Reason Comments [...] - C92.10 DATE , TIME PER SLIP PAULA Procedures ECHO TTHRC R-T 2D W/WOM-MODE COMPL SPEC&COLR D IMAGING [place] [address] [place] [phone] [address] [place] [id number] Referral ID Status Reason Start Date Expiration Date Visits Re quested Visits Authorized [id number] Closed 04/16/2023 06/08/2023 1 1 Specialty Diagnoses / Procedures Referred By Contac t Referred To Contact Hematology/Oncology / HEMATOLOGY/ONCOLOGY Diagnoses Chronic myeloid leukemia, BCR/ABL-positive, not having achieved remission STUDY PT IRB 20-998/ACTG 1920 DX - C92.10 DATE , TIME PER SLIP PAULA Procedures f/u per research study; ACTG 1919; IRB # 20-998 William Howell MD, PhD [address] [place] [address] [place] [address] [place] [address] Referral ID Status Reason Start Date Expiration Date Visits Requested Visits Authorized [id number] Pending Review OON/Self Pay Override 04/16/2023 10/13/2023 5 5 Specialty Diagnoses / Procedures Referred By Contac t Referred To Contact Hematology/Oncology / HEMATOLOGY/ONCOLOGY Diagnoses CML (chronic myeloid leukemia) (HCC) STUDY PT IRB 20-998/ACT 1920 DX - C92.10 DATE , TIME PER SLIP PAULA JFL Procedures OFFICE/OUTPATIENT ESTABLISHED MOD MDM 30 MIN EST PATIENT William Howell MD, PhD [address] [place] [address] [place] [address] [place] [address] Referral ID Status Reason Start Date Expiration Date Visits Re quested Visits Authorized [id number] Closed 07/09/2023 06/08/2024 1 1 Reason Comments Follow Up Specialty Diagnoses / Procedures [facility] Ref[facility] To Contact Endocrinology / ENDOCRINOLOGY Diagnoses Type 2 diabetes mellitus with hyperglycemia, with long-term current use of insulin (HCC) follow up in person 4 months Procedures OFFICE/OUTPATIENT ESTABLISHED MOD MDM 30 MIN EST DAMON PATIENT Alexx Dalal, SALES AGENT [employer].EAR NOSE THROAT PHYSICIAN [address] [facility] [place] [address] Alexx Dalal, SALES AGENT CAS[employer]TY INSURANCE.EAR NOSE THROAT PHYSICIAN [address] [place] [place] [address] Referral ID Status Reason Start Date Expiration Date Visits Re quested Visits Authorized [id number] Closed 08/25/2023 06/08/2024 1 1 Reason Comments Research ACTG 1919 Cycle 42 D 28 Reason Comments Research ACTG 192 / 20-998 c ycle 42 day 28 Reason Comments Research ARIA 2915 Survival F ollow-up Last Call Specialty Diagnoses / Procedures Referred By Yuri t Referred To Contact Hematology/Oncology / HEMATOLOGY/ONCOLOGY Diagnoses Chronic myeloid leukemia, BCR/ABL-positive, not having achieved remission STUDY PT IRB 20-998/ACTG 1920 DX - C92.10 DATE , TIME PER SLIP PAULA JFL Procedures OFFICE/OUTPATIENT ESTABLISHED MOD MDM 30 MIN EST PATIENT William Howell MD, PhD [address] [place] [address] [place] [address] [place] [address] Referral ID Status Reason Start Date Expiration Date Visits Re quested Visits Authorized [id number] Closed 10/01/2023 06/08/2024 1 1 Reason Onset Date Comments Refill Request 12/23/2023 Reason Comments Research ACTG 192 C45D28 Reason Comments Research ACTG Cyc le 45 day 28 visit Reason Comments Results Specialty Diagnoses / Procedures Referred By Contac t Referred To Contact Hematology / HEMATOLOGY/ONCOLOGY Diagnoses STUDY PT IRB /ACTG 1919 DX - C92.10 DATE , TIME PER SLIP PAULA JFL Procedures EKG EPIC William Howell MD, PhD [address] [place] [address] [place] [address] [place] [address] [address] [place] [address] Referral ID Status Reason Start Date Expiration Date Visits Re quested Visits Authorized [id number] Closed 07/09/2023 06/08/2024 1 1 Specialty Diagnoses / Procedures Referred By Contac t Referred To Contact Hematology/Oncology / HEMATOLOGY/ONCOLOGY Diagnoses Research subject Chronic myeloid leukemia, BCR/ABL-positive, not having achieved remission STUDY PT IRB /ACTG 1919 DX - C92.10 Procedures ECHO TTHRC R-T 2D W/WOM-MODE COMPL SPEC&COLR D STUDY PATIENT [id number]/ DX C92.10 William Howell MD, PhD [address] [place] [address] [place] [address] [place] [phone] Referral ID Status Reason Start Date Expiration Date V isits Requested Visits Authorized [id number] Closed OON/Self Pay Override 03/16/2024 06/24/2025 30 30 Reason Comments Research ACTG 1919 C48D28 Specialty Diagnoses / Procedures Referred By Contac t Referred To Contact ADMITTING Diagnoses CML (chronic myeloid leukemia) (HCC) 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] Procedures DIAGNOSTIC BONE MARROW BIOPSIES DIAGNOSTIC BONE MARROW BIOPSY(IES) [facility] [address] [place] [id number] Referral ID Status Reason Start Date Expiration Date Visits Re quested Visits Authorized [id number] 1 1 Reason Comments Pain Specialty Diagnoses / Procedures Referred By Contac t Referred To Contact Endocrinology / ENDOCRINOLOGY Diagnoses Rash CML (chronic myeloid leukemia) (HCC) 6 months (around 02/29/2024 Procedures OFFICE/OUTPATIENT ESTABLISHED MOD MDM 30 MIN EST DAMON PATIENT Alexx Dalal, SALES AGENT [employer]ANCE.EAR NOSE THROAT PHYSICIAN [address] [place] [address] Alexx Dalal, SALES AGENT CAS[employer]TY INSURANCE.EAR NOSE THROAT PHYSICIAN [address] [place] [address] Referral ID Status Reason Start Date Expiration Date Visits Re quested Visits Authorized [id number] Closed 03/08/2024 06/08/2024 1 1 Specialty Diagnoses / Procedures Referred By Contac t Referred To Contact Hematology/Oncology / HEMATOLOGY/ONCOLOGY Diagnoses Chronic myeloid leukemia (HCC) ECHO HEART, LIMITED CHARGE TO RES STUDY PT IRB 20-998/ACTG 1920 DX - C92.10 DATE , TIME PER SLIP PAULA Procedures OFFICE/OUTPATIENT ESTABLISHED MOD MDM 30 MIN EST PATIENT William Howell MD, PhD [address] [place] [address] [place] [address] [place] [address] Referral ID Status Reason Start Date Expiration Date Visits Re quested Visits Authorized [id number] Closed 03/17/2024 06/08/2024 1 1 Reason Comments Med Change Request Reason Onset Date Comments Med Refill 02/10/2024 Specialty Diagnoses / Procedures Referred By Contac t Referred To Contact Neurology Diagnoses Paresthesias in right hand Arm weakness Numbness Arm pain, right Procedures EMG AND NERVE CONDUCTION STUDY Lars Belcher PA [address] [facility] [address] [place] [address] Shanel Jara MD [address] [place] [address] Referral ID Status Reason Start Date Expiration Date Visits Re quested Visits Authorized [id number] Closed 02/04/2024 08/02/2024 1 1 Reason Comments Pain Specialty Diagnoses / Procedures Referred By Contac t Referred To Contact HEMATOLOGY/ONCOLOGY Diagnoses STUDY PT IRB 20-998/ACTG 1920 DX - C92.10 DATE , TIME PER SLIP PAULA Procedures NURSE RESEARCH 2 William Howell MD, PhD [address] [place] [address] Paula Tuttle, RN [address] [place] [address] Reason Comments Research [id number] Cycle 51 D2 8 Specialty Diagnoses / Procedures Referred By Contac t Referred To Contact HEMATOLOGY/ONCOLOGY Diagnoses STUDY PT IRB 20-998/ACTG 1920 DX - C92.10 DATE , TIME PER SLIP PAULA Procedures NURSE RESEARCH 2 William Howell MD, PhD [address] [place] [address] Paula Tuttle, RN [address] [place] [address] Reason Comments Returning Patient's Call Reason Comments Colon Cancer Screening First colon Specialty Diagnoses / Procedures Referred By Contac t Referred To Contact General Surgery Diagnoses Colon cancer screening Procedures GA OFFICE OUTPATIENT VISIT 60-74 MINS HIGH MDM [id number] (SNOMED CT) - AMB REFERRAL TO GENERAL SURGERY Rolf Chung, SALES AGENT [employer] INS[employer]ANCE-EAR NOSE THROAT PHYSICIAN [address] [place] [address] Phone: tel: fax: Derrell Solis, DO [address] [place] [address] Phone: tel: fax: Referral ID Status Reason Start Date Expiration Date Visits Re quested Visits Authorized [id number] Closed 05/31/2024 11/27/2024 1 1 Reason Comments Follow-up [facility] - 3 mo ov - l /s [facility] - no testing,labs - sched w/pt Reason Comments Follow-up 09/24 LM to move to - [facility] - 3 mo ov - l/s RDG - cardiac MRI 06/30/23, 07/31/23, Holter 06/30/23 - sched w/pt Reason Onset Date Comments Requesting time off until surgery 07/21/2024 Reason Comments Pre-op Exam Reason Comments Diabetes Reason Comments Research ACTG 19198 Referral ID Status Reason Start Date Expiration Date V isits Requested Visits Authorized [id number] New Request 09/08/2024 12/07/2024 1 1 Reason Comments Research ACTG 19198 / C54 D28 Reason Comments Follow-up Reason Comments Research ACTG 19198 / C55 D1 Specialty Diagnoses / Procedures Referred By Contac t Referred To Contact Hematology/Oncology / HEMATOLOGY/ONCOLOGY Diagnoses Chronic myeloid leukemia, BCR/ABL-positive, not having achieved remission ok to proceed STUDY PT IRB /ACTG 1919 DX - C92.10 DATE , TIME PER SLIP PAULA Procedures OFFICE/OUTPATIENT ESTABLISHED MOD MDM 30 MIN EST PATIENT William Howell MD, PhD [address] [place] [address] Phone: tel: [place], PhD [address] [place] [address] Phone: tel: fax: Referral ID Status Reason Start Date Expiration Date Visits Re quested Visits Authorized [id number] Closed 09/29/2024 06/08/2025 1 1 Specialty Diagnoses / Procedures Referred By Contac t Referred To Contact Hematology/Oncology / HEMATOLOGY/ONCOLOGY Diagnoses STUDY PT IRB 8/ACTG 0 DX - C92.10 DATE , TIME PER SLIP PAULA Procedures OFFICE/OUTPATIENT ESTABLISHED MOD MDM 30 MIN EST PAT[place] [address] [place] [address] Phone: tel: fax: [place] [address] [place] [address] Phone: tel: fax: Referral ID Status Reason Start Date Expiration Date Visits Re quested Visits Authorized [id number] Closed 09/08/2024 06/08/2025 1 1 Reason Comments Follow-up [facility]CM Clinic - 14 mo f /u - l/s RDG - exercise stress 07/06/19 - echo 04/16/23 - cMRI 08/08/23 - holter 07/01/23 - ekg 03/10/23 - sched w/pt Specialty Diagnoses / Procedures Referred By Yuri metzger Referred To Contact Hematology/Oncology / HEMATOLOGY/ONCOLOGY Diagnoses STUDY PT IRB 20-998/ACTG 1920 DX - C92.10 DATE , TIME PER SLIP PAULA Procedures OFFICE/OUTPATIENT ESTABLISHED MOD MDM 30 MIN EST PATIENT William Howell MD, PhD [address] [place] [address] Phone: tel: [place] [address] [place] [address] Phone: tel: fax: Referral ID Status Reason Start Date Expiration Date Visits Re quested Visits Authorized [id number] Closed 09/15/2024 06/08/2025 1 1 Reason Onset Date Comments Genetic testing 10/21/2024 Reason Comments Research [id number] / 20-998 / C57D28 Reason Comments Follow-up 6 months Cardiomyopathy Hypertension Palpitations Care Teams (unrecognized sec tion and content) Fish Smoker Relationship Specialty Start Date End Date Aman Pack [address] [place] [address] PCP - General Family Practice 09/03/21 Paula Tuttle RN [address] [place] [address] Research Nurse Hematology/Oncology 06/05/20 [place] [address] [place] [address] Physician Hematology/Oncology 06/05/20 Fish Smoker Relationship Specialty Start Date End Date Aman Pack [address] [place] [address] PCP - General Family Practice 09/03/21 Paula Tuttle RN [address] [place] [address] Research Nurse Hematology/Oncology 06/05/20 [place] [address] [place] [address] Physician Hematology/Oncology 06/05/20 Fish Smoker Relationship Specialty Start Date End Date Aman Pack [address] [place] [address] PCP - General Family Practice 09/03/21 Paula Tuttle, RN [address] [place] [address] Research Nurse Hematology/Oncology 06/05/20 [place] [address] [place] [address] Physician Hematology/Oncology 06/05/20 Fish Smoker Relationship Specialty Start Date End Date Aman Pack [address] [place] [address] PCP - General Family Practice 09/03/21 Paula Tuttle, RN [address] [place] [address] Research Nurse Hematology/Oncology 06/05/20 [place] [address] [place] [address] Physician Hematology/Oncology 06/05/20 Fish Smoker Relationship Specialty Start Date End Date Aman Pack Walter [address] [place] [address] PCP - General Family Practice 09/03/21 Paula Tuttle, RN [address] [place] [address] Research Nurse Hematology/Oncology 06/05/20 [place] [address] [place] [address] Physician Hematology/Oncology 06/05/20 Fish Smoker Relationship Specialty Start Date End Date Aman Pack [address] [place] [address] PCP - General Family Practice 09/03/21 Paula Tuttle, RN [address] [place] [address] Research Nurse Hematology/Oncology 06/05/20 [place] [address] [place] [address] Physician Hematology/Oncology 06/05/20 Fish Smoker Relationship Specialty Start Date End Date Aman Pack [address] [place] [address] PCP - [facility] Practice 09/03/21 Paula Tuttle, MOISÉS [address] [place] [address] Research Nurse Hematology/Oncology 06/05/20 [place] [address] [place] [address] Physician Hematology/Oncology 06/05/20 Fish Smoker Relationship Specialty Start Date End Date Aman Pack [address] [place] [address] PCP - General [facility] Practice 09/03/21 Paual Tuttle RN 12[address] [place] [address] Research Nurse Hematology/Oncology 06/05/20 [place] [address] [place] [address] Physician Hematology/Oncology 06/05/20 Fish Smoker Relationship Specialty Start Date End Date Aman Pack [address] [place] [address] PCP - General Family Practice 09/03/21 Paula Tuttle, RN 30[address] [place] [address] Research Nurse Hematology/Oncology 06/05/20 [place] [address] [place] [address] Physician Hematology/Oncology 06/05/20 Fish Smoker Relationship Specialty Start Date End Date Chelorita Aman Walter [address] [facility] [place] [address] PCP - General Family Practice 09/03/21 Paula Tuttle, MOISÉS [address] [place] [address] Research Nurse Hematology/Oncology 06/05/20 [place] [address] [place] [address] Physician Hematology/Oncology 06/05/20 Fish Smoker Relationship Specialty Start Date End Date Aman Pack [address] [facility] [place] [address] PCP - General Family Practice 09/03/21 Paula Tuttle, MOISÉS [address] [place] [address] Research Nurse Hematology/Oncology 06/05/20 [place] [address] [place] [address] Physician Hematology/Oncology 06/05/20 Fish Smoker Relationship Specialty Start Date End Date MelyAman echeverria [address] [facility] [place] [address] PCP - General [facility] Practice 09/03/21 Paula Tuttle, RN [address] [place] [address] Research Nurse Hematology/Oncology 06/05/20 [place] [address] [place] [address] Physician Hematology/Oncology 06/05/20 Fish Smoker Relationship Specialty Start Date End Date Aman Pack [address] [place] [address] PCP - General Family Practice 09/03/21 Paula Tuttle RN 9[address] [place] [address] Research Nurse Hematology/Oncology 06/05/20 [place] [address] [place] [address] Physician Hematology/Oncology 06/05/20 Fish Smoker Relationship Specialty Start Date End Date Aman Pack [address] [place] [address] PCP - General Family Practice 09/03/21 Paula Tuttle RN 69[address] [place] [address] Research Nurse Hematology/Oncology 06/05/20 [place] [address] [place] [address] Physician Hematology/Oncology 06/05/20 Fish Smoker Relationship Specialty Start Date End Date Aman Pack [address] [place] [address] PCP - General Family Practice 09/03/21 Paula Tuttle RN 23[address] [place] [address] Research Nurse Hematology/Oncology 06/05/20 [place] [address] [place] [address] Physician Hematology/Oncology 06/05/20 Fish Smoker Relationship Specialty Start Date End Date Aman Pack Walter [address] [place] [address] PCP - General Family Practice 09/03/21 Paula Tuttle, RN [address] [place] [address] Research Nurse Hematology/Oncology 06/05/20 [place] [address] [place] [address] Physician Hematology/Oncology 06/05/20 Fish Smoker Relationship Specialty Start Date End Date Aman Pack [address] [place] [address] PCP - General Family Medicine 09/03/21 Paula Tuttle RN 0[address] [place] [address] Research Nurse Hematology/Oncology 06/05/20 [place] [address] [place] [address] Physician Hematology/Oncology 06/05/20 Fish Smoker Relationship Specialty Start Date End Date Aman Pack [address] [place] [address] PCP - General Family Medicine 09/03/21 Paula Tuttle, RN 0450 [place] [address] Research Nurse Hematology/Oncology 06/05/20 [place] [address] [place] [address] Physician Hematology/Oncology 06/05/20 Fish Smoker Relationship Specialty Start Date End Date Aman Pack [address] [place] [address] PCP - General Family Medicine 09/03/21 Paula Tuttle RN 1200 [place] [address] Research Nurse Hematology/Oncology 06/05/20 [place] [address] [place] [address] Physician Hematology/Oncology 06/05/20 Fish Smoker Relationship Specialty Start Date End Date Aman Pack [address] [place] [address] PCP - General Family Medicine 09/03/21 Paula Tuttle, RN 9500 [place] [address] Research Nurse Hematology/Oncology 06/05/20 [place] [address] [place] [address] Physician Hematology/Oncology 06/05/20 Fish Smoker Relationship Specialty Start Date End Date Aman Pack [address] [place] [address] PCP - General Family Medicine 09/03/21 Paula Tuttle, RN 571 [place] [address] Research Nurse Hematology/Oncology 06/05/20 [place] [address] [place] [address] Physician Hematology/Oncology 06/05/20 Fish Smoker Relationship Specialty Start Date End Date Aman Pack Walter [address] [place] [address] PCP - General Family Medicine 09/03/21 Paula Tuttle, RN 862 [place] [address] Research Nurse Hematology/Oncology 06/05/20 [place] [address] [place] [address] Physician Hematology/Oncology 06/05/20 Fish Smoker Relationship Specialty Start Date End Date Aman Pack [address] [place] [address] PCP - General Family Medicine 09/03/21 Paula Tuttle, RN 6[address] [place] [address] Research Nurse Hematology/Oncology 06/05/20 [place] [address] [place] [address] Physician Hematology/Oncology 06/05/20 Fish Smoker Relationship Specialty Start Date End Date Aman Pack [address] [place] [address] PCP - General Family Medicine 09/03/21 Paula Tuttle, RN 923 [place] [address] Research Nurse Hematology/Oncology 06/05/20 [place] [address] [place] [address] Physician Hematology/Oncology 06/05/20 Fish Smoker Relationship Specialty Start Date End Date Aman Pack [address] [place] [address] PCP - General Family Medicine 09/03/21 Paula Tuttle, RN 6130 [place] [address] Research Nurse Hematology/Oncology 06/05/20 [place] [address] [place] [address] Physician Hematology/Oncology 06/05/20 Fish Smoker Relationship Specialty Start Date End Date Aman Pack [address] [place] [address] PCP - General Family Medicine 09/03/21 Paula Tuttle, RN 28[address] [place] [address] Research Nurse Hematology/Oncology 06/05/20 [place] PhD [address] [place] [address] Physician Hematology/Oncology 06/05/20 Fish Smoker Relationship Specialty Start Date End Date Aman Pack [address] [facility] [place] [place] [address] PCP - General Family Medicine 09/03/21 Paula Tuttle, RN [address] [place] [address] Research Nurse Hematology/Oncology 06/05/20 [place] [address] [place] [address] Physician Hematology/Oncology 06/05/20 Fish Smoker Relationship Specialty Start Date End Date Aman Pack [address] [facility] [place] [address] PCP - General Family Medicine 09/03/21 Paula Tuttle, RN 0940 [place] [address] Research Nurse Hematology/Oncology 06/05/20 [place] [address] [place] [address] Physician Hematology/Oncology 06/05/20 Fish Smoker Relationship Specialty Start Date End Date Aman Pack [address] [facility] [place] [address] PCP - General Family Medicine 09/03/21 Paula Tuttle, RN 0610 [place] [address] Research Nurse Hematology/Oncology 06/05/20 [place] PhD [address] [place] [address] Physician Hematology/Oncology 06/05/20 Fish Smoker Relationship Specialty Start Date End Date Aman Pack [address] [place] [address] PCP - General Family Medicine 09/03/21 Paula Tuttle, MOISÉS [address] [place] [address] Research Nurse Hematology/Oncology 06/05/20 [place] [address] [place] [address] Physician Hematology/Oncology 06/05/20 Fish Smoker Relationship Specialty Start Date End Date Aman Pack [address] [place] [address] PCP - General Family Medicine 09/03/21 Paula Tuttle, MOISÉS [address] [place] [address] Research Nurse Hematology/Oncology 06/05/20 [place] [address] [place] [address] Physician Hematology/Oncology 06/05/20 Fish Smoker Relationship Specialty Start Date End Date Aman Pack [address] [place] [address] PCP - General Family Medicine 09/03/21 Paula Tuttle RN 3760 [place] [address] Research Nurse Hematology/Oncology 06/05/20 [place] [address] [place] [address] Physician Hematology/Oncology 06/05/20 Fish Smoker Relationship Specialty Start Date End Date Aman Pack [address] [place] [address] PCP - General [facility] 09/03/21 Paula Tuttle, RN 768 [place] [address] Research Nurse Hematology/Oncology 06/05/20 [place] [address] [place] [address] Physician Hematology/Oncology 06/05/20 Fish Smoker Relationship Specialty Start Date End Date Aman Pack [address] [place] [address] PCP - General [facility] 09/03/21 Paula Tuttle RN 996 [place] [address] Research Nurse Hematology/Oncology 06/05/20 William Howell MD, PhD [address] [place] [address] Physician Hematology/Oncology 06/05/20 Fish Smoker Relationship Specialty Start Date End Date Aman Pack [address] [place] [address] PCP - General Family [facility] 09/03/21 Paula Tuttle, MOISÉS [address] [place] [address] Research Nurse Hematology/Oncology 06/05/20 [place] [address] [place] [address] Physician Hematology/Oncology 06/05/20 Fish Smoker Relationship Specialty Start Date End Date Aman Pack [address] [place] [address] PCP - General Family Medicine 09/03/21 Paula Tuttle, RN 098 [place] [address] Research Nurse Hematology/Oncology 06/05/20 [place] [address] [place] [address] Physician Hematology/Oncology 06/05/20 Fish Smoker Relationship Specialty Start Date End Date Aman aPck [address] [place] [address] PCP - General Family Medicine 09/03/21 Paula Tuttle RN 950 [place] [address] Research Nurse Hematology/Oncology 06/05/20 [place] [address] [place] [address] Physician Hematology/Oncology 06/05/20 Fish Smoker Relationship Specialty Start Date End Date Aman Pack [address] [place] [address] PCP - General Family [facility] 09/03/21 Paula Tuttle RN 953 [place] [address] Research Nurse Hematology/Oncology 06/05/20 [place] [address] [place] [address] Physician Hematology/Oncology 06/05/20 Fish Smoker Relationship Specialty Start Date End Date Aman Pack [address] [place] [address] PCP - General Family Medicine 09/03/21 Paula Tuttle RN 3[address] [place] [address] Research Nurse Hematology/Oncology 06/05/20 [place] [address] [place] [address] Physician Hematology/Oncology 06/05/20 Team Status: Active Member Role Status Dates Rolf Chung Primary Care Provider Active Team Status: Inactive Member Role Status Dates Rolf Chung Primary Care Provide r, Attending Provider, Referring Provider Active Fish Smoker Relationship Specialty Start Date End Date Aman Pack [address] [place] [address] PCP - General Family Medicine 09/03/21 Paula Tuttle RN [address] [place] [address] Research Nurse Hematology/Oncology 06/05/20 William Howell MD, PhD [address] [place] [address] Physician Hematology/Oncology 06/05/20 Fish Smoker Relationship Specialty Start Date End Date Aman Pack [address] [place] [address] PCP - General Family Medicine 09/03/21 Paula Tuttle RN 079 [place] [address] Research Nurse Hematology/Oncology 06/05/20 William Howell MD, PhD [address] [place] [address] Physician Hematology/Oncology 06/05/20 Fish Smoker Relationship Specialty Start Date End Date Aman Pack [address] [facility] [place] [address] PCP - General Family Medicine 09/03/21 Paula Tuttle, MOISÉS [address] [place] [address] Research Nurse Hematology/Oncology 06/05/20 [place] [address] [place] [address] Physician Hematology/Oncology 06/05/20 Fish Smoker Relationship Specialty Start Date End Date Aman Pack [address] [facility] [place] [address] PCP - General Family [facility] 09/03/21 Paula Tuttle RN [address] [place] [address] Research Nurse Hematology/Oncology 06/05/20 [place] [address] [place] [address] Physician Hematology/Oncology 06/05/20 Fish Smoker Relationship Specialty Start Date End Date Aman Pack [address] [place] [address] PCP - General Family Medicine 09/03/21 Paula Tuttle RN 788 [place] [address] Research Nurse Hematology/Oncology 06/05/20 [place] [address] [place] [address] Physician Hematology/Oncology 06/05/20 Fish Smoker Relationship Specialty Start Date End Date Aman Pack [address] [place] [address] PCP - General Family Medicine 09/03/21 Paula Tuttle RN 599 [place] [address] Research Nurse Hematology/Oncology 06/05/20 [place] [address] [place] [address] Physician Hematology/Oncology 06/05/20 Fish Smoker Relationship Specialty Start Date End Date Aman Pack [address] [place] [address] PCP - General Family Medicine 09/03/21 Paula Tuttle RN 9499 [place] [address] Research Nurse Hematology/Oncology 06/05/20 William Howell MD, PhD [id number] [place] [address] Physician Hematology/Oncology 06/05/20 Fish Smoker Relationship Specialty Start Date End Date Aman Pack [address] [place] [address] PCP - General Family [facility] 09/03/21 Paula Tuttle RN 570 [place] [address] Research Nurse Hematology/Oncology 06/05/20 [place] [address] [place] [address] Physician Hematology/Oncology 06/05/20 Fish Smoker Relationship Specialty Start Date End Date Rolf Chung, EAR NOSE THROAT PHYSICIAN [address] [place] [address] PCP - General Family Medicine 09/15/23 Paula Tuttle RN [address]00 [place] [address] Research Nurse Hematology/Oncology 06/05/20 [place] [address] [place] [address] Physician Hematology/Oncology 06/05/20 Fish Smoker Relationship Specialty Start Date End Date Rolf Chung, EAR NOSE THROAT PHYSICIAN [address] [place] [address] PCP - General Family Medicine 09/15/23 Paula Tuttle RN 950 [place] [address] Research Nurse Hematology/Oncology 06/05/20 William Howell MD, PhD [address] [place] [address] Physician Hematology/Oncology 06/05/20 Fish Smoker Relationship Specialty Start Date End Date Rolf Chung, EAR NOSE THROAT PHYSICIAN [address] [place] [address] PCP - General Family Medicine 09/15/23 Paula Tuttle RN 9500 [place] [address] Research Nurse Hematology/Oncology 06/05/20 William Howell MD, PhD [id number] [place] [address] Physician Hematology/Oncology 06/05/20 Fish Smoker Relationship Specialty Start Date End Date Rolf Chung, EAR NOSE THROAT PHYSICIAN [address] [place] [address] PCP - General Family Medicine 09/15/23 Paula Tuttle RN [address]00 [place] [address] Research Nurse Hematology/Oncology 06/05/20 William Howell MD, PhD [id number] [place] [address] Physician Hematology/Oncology 06/05/20 Fish Smoker Relationship Specialty Start Date End Date Rolf Chung, EAR NOSE THROAT PHYSICIAN [address] [place] [address] PCP - General Family Medicine 09/15/23 Paula Tuttle, MOISÉS [address] [place] [address] Research Nurse Hematology/Oncology 06/05/20 William Howell MD, PhD [address] [place] [address] Physician Hematology/Oncology 06/05/20 Fish Smoker Relationship Specialty Start Date End Date Rolf Chung, EAR NOSE THROAT PHYSICIAN [address] [place] [address] PCP - General Family Medicine 09/15/23 Paula Tuttle RN 9499 [place] [address] Research Nurse Hematology/Oncology 06/05/20 William Howell MD, PhD [address] [place] [address] Physician Hematology/Oncology 06/05/20 Fish Smoker Relationship Specialty Start Date End Date Rolf Chung, EAR NOSE THROAT PHYSICIAN [address] [place] [address] PCP - General Family Medicine 09/15/23 Paula Tuttle RN 5590 [place] [address] Research Nurse Hematology/Oncology 06/05/20 [place] [address] [place] [address] Physician Hematology/Oncology 06/05/20 Team Status: Inactive Member Role Status Dates Rolf Chung Primary Care Provider Active Sta rt: December 09, 2023 End: December 09, 2023 Kapil Kilpatrick Jr, DO Attending Provider Active Start: December 09, 2023 End: December 09, 2023 Fish Smoker Relationship Specialty Start Date End Date Rolf Chung, EAR NOSE THROAT PHYSICIAN [address] [place] [address] PCP - General Family Medicine 09/15/23 Paula Tuttle RN 9500 [place] [address] Research Nurse Hematology/Oncology 06/05/20 William Howell MD, PhD [address] [place] [address] Physician Hematology/Oncology 06/05/20 Fish Smoker Relationship Specialty Start Date End Date Rolf Chung, EAR NOSE THROAT PHYSICIAN [address] [place] [address] PCP - General Family Medicine 09/15/23 Paula Tuttle RN 196 [place] [address] Research Nurse Hematology/Oncology 06/05/20 William Howell MD, PhD [address] [place] [address] Physician Hematology/Oncology 06/05/20 Fish Smoker Relationship Specialty Start Date End Date [facility] EAR NOSE THROAT PHYSICIAN 1076 [place] [address] PCP - General Family Medicine 09/15/23 Paula Tuttle, RN [address] [place] [address] Research Nurse Hematology/Oncology 06/05/20 William Howell MD, PhD [address] [place] [address] Physician Hematology/Oncology 06/05/20 Fish Smoker Relationship Specialty Start Date End Date MadhaviRolf brown EAR NOSE THROAT PHYSICIAN [address] [place] [address] PCP - General Family Medicine 09/15/23 Paula Tuttle, MOISÉS [address] [place] [address] Research Nurse Hematology/Oncology 06/05/20 William Howell MD, PhD [address] [place] [address] Physician Hematology/Oncology 06/05/20 Fish Smoker Relationship Specialty Start Date End Date MadhaviRolf brown, EAR NOSE THROAT PHYSICIAN [address] [place] [address] PCP - General Family Medicine 09/15/23 Paula Tuttle, MOISÉS [address] [place] [address] Research Nurse Hematology/Oncology 06/05/20 William Howell MD, PhD [address] [place] [address] Physician Hematology/Oncology 06/05/20 Fish Smoker Relationship Specialty Start Date End Date Rolf Chung EAR NOSE THROAT PHYSICIAN [address] [place] [address] PCP - General Family Medicine 09/15/23 Paula Tuttle RN [address] [place] [address] Research Nurse Hematology/Oncology 06/05/20 [place] PhD [address] [place] [address] Physician Hematology/Oncology 06/05/20 Fish Smoker Relationship Specialty Start Date End Date Aman Pack Walter [address] [place] [address] PCP - General Family Medicine 09/03/21 09/14/23 Paula Tuttle RN [address] [place] [address] Research Nurse Hematology/Oncology 06/05/20 [place] PhD [address] [place] [address] Physician Hematology/Oncology 06/05/20 Fish Smoker Relationship Specialty Start Date End Date Rolf Chung, EAR NOSE THROAT PHYSICIAN [address] [place] [address] PCP - General Family Medicine 09/15/23 Paula Tuttle RN [address] [place] [address] Research Nurse Hematology/Oncology 06/05/20 [place] PhD [address] [place] [address] Physician Hematology/Oncology 06/05/20 Fish Smoker Relationship Specialty Start Date End Date Aman Pack MD [address] [place] [address] PCP - General Family Medicine 08/07/23 Rolf Chung, ATHLETIC COACH [address] [place] [address] Nurse Practitioner Family Medicine 08/07/23 Fish Smoker Relationship Specialty Start Date End Date Rolf Chung, EAR NOSE THROAT PHYSICIAN [address] [place] [address] PCP - General Family Medicine 09/15/23 Paula Tuttle RN [address] [place] [address] Research Nurse Hematology/Oncology 06/05/20 [place] PhD [address] [place] [address] Physician Hematology/Oncology 06/05/20 Fish Smoker Relationship Specialty Start Date End Date Rolf Chung, EAR NOSE THROAT PHYSICIAN [address] [place] [address] PCP - General Family Medicine 09/15/23 Paula Tuttle RN [address] [place] [address] Research Nurse Hematology/Oncology 06/05/20 [place] PhD [address] [place] [address] Physician Hematology/Oncology 06/05/20 Fish Smoker Relationship Specialty Start Date End Date Aman Pack MD [address] [place] [address] PCP - General Family Medicine 08/07/23 Rolf Chung NP [address] [place] [address] Nurse Practitioner Family Medicine 08/07/23 Fish Smoker Relationship Specialty Start Date End Date Aman Pack MD [address] [place] [address] PCP - General Family Medicine 08/07/23 Rolf Chung NP [address] [place] [address] Nurse Practitioner Family Medicine 08/07/23 Fish Smoker Relationship Specialty Start Date End Date Unallocated, Noms MD Rajesh [address] [place] [address] PCP - General Family Medicine 03/31/24 Rolf Chung NP [address] [place] [address] Nurse Practitioner Family Medicine 08/07/23 Fish Smoker Relationship Specialty Start Date End Date Aman Pack MD [address] [place] [address] PCP - General Family Medicine 04/08/24 Rolf Chung NP [address] [place] [address] Nurse Practitioner Family Medicine 08/07/23 Fish Smoker Relationship Specialty Start Date End Date Rolf Chung CNP [address] [place], [place] [id number] PCP - General Family Medicine 09/15/23 Paula Tuttle, RN [address] [place] [address] Research Nurse Hematology/Oncology 06/05/20 [place] PhD [address] [place] [address] Physician Hematology/Oncology 06/05/20 Fish Smoker Relationship Specialty Start Date End Date Aman Pack MD [address] [place] [address] PCP - General Family Medicine 08/07/23 Rolf Chung NP [address] [place] [address] Nurse Practitioner Family Medicine 08/07/23 Fish Smoker Relationship Specialty Start Date End Date Aman Pack MD [address] [place] [address] PCP - General Family Medicine 08/07/23 Rolf Chung NP [address] [place] [address] Nurse Practitioner Family Medicine 08/07/23 Fish Smoker Relationship Specialty Start Date End Date Aman Pack MD [address] [place] [address] PCP - General Family Medicine 08/07/23 Rolf Chung NP [address] [place] [address] Nurse Practitioner Family Medicine 08/07/23 Fish Smoker Relationship Specialty Start Date End Date Aman Pack MD [address] [place] [address] PCP - General Family Medicine 08/07/23 Rolf Chung NP [address] [place] [address] Nurse Practitioner Family Medicine 08/07/23 Fish Smoker Relationship Specialty Start Date End Date Aman Pack MD [address] [place] [address] PCP - General Family Medicine 08/07/23 Rolf Chung NP [address] [place] [address] Nurse Practitioner Family Medicine 08/07/23 Fish Smoker Relationship Specialty Start Date End Date Aman Pack MD [address] [place] [address] PCP - General Family Medicine 08/07/23 Rolf Chung NP [address] [place] [address] Nurse Practitioner Family Medicine 08/07/23 Fish Smoker Relationship Specialty Start Date End Date Aman Pack MD [address] [place] [address] PCP - General Family Medicine 08/07/23 Rolf Chung NP [address] [place] [address] Nurse Practitioner Family Medicine 08/07/23 Fish Smoker Relationship Specialty Start Date End Date Aman Pack MD [address] [place] [address] PCP - General Family Medicine 08/07/23 Rolf Chung NP [address] [place] [address] Nurse Practitioner Family Medicine 08/07/23 Fish Smoker Relationship Specialty Start Date End Date Aman Pack MD [address] [place] [address] PCP - General Family Medicine 08/07/23 Rolf Chung NP [address] [place] [address] Nurse Practitioner Family Medicine 08/07/23 Fish Smoker Relationship Specialty Start Date End Date Aman Pack MD [address] [place] [address] PCP - General Family Medicine 08/07/23 Rolf Chung NP [address] [place] [address] Nurse Practitioner Family Medicine 08/07/23 Fish Smoker Relationship Specialty Start Date End Date Aman Pack MD [address] [place] [address] PCP - General Family Medicine 04/08/24 Rolf Chung NP [address] [place] [address] Nurse Practitioner Family Medicine 08/07/23 Fish Smoker Relationship Specialty Start Date End Date Aman Pack MD [address] [place] [address] PCP - General Family Medicine 04/08/24 Rolf Chung NP [address] [place] [address] Nurse Practitioner Family Medicine 08/07/23 Fish Smoker Relationship Specialty Start Date End Date Aman Pack MD [address] [place] [address] PCP - General Family Medicine 04/08/24 Rolf Chung NP [address] [place] [address] Nurse Practitioner Family Medicine 08/07/23 Fish Smoker Relationship Specialty Start Date End Date Rolf Chung, SALES AGENT CASUALTY INSURANCE-EAR NOSE THROAT PHYSICIAN PCP - General Nurse Practitioner 05/19/24 Fish Smoker Relationship Specialty Start Date End Date Aman Pack MD [address] [place] [address] PCP - General Family Medicine 04/08/24 Rolf Chung, YANE [address] [place] [address] Nurse Practitioner Family Medicine 08/07/23 Fish Smoker Relationship Specialty Start Date End Date Rolf Chung EAR NOSE THROAT PHYSICIAN [address] [place] [address] PCP - General Family Medicine 09/15/23 Paula Tuttle, MOISÉS [address] [place] [address] Research Nurse Hematology/Oncology 06/05/20 [place] PhD [address] [place] [address] Physician Hematology/Oncology 06/05/20 Fish Smoker Relationship Specialty Start Date End Date Rolf Chung EAR NOSE THROAT PHYSICIAN [address] [place] [address] PCP - General [facility] Medicine 09/15/23 Paula Tuttle RN [address] [place] [address] Research Nurse Hematology/Oncology 06/05/20 [place] PhD [address] [place] [address] Physician Hematology/Oncology 06/05/20 Fish Smoker Relationship Specialty Start Date End Date Rolf Chung CNP [address] [place] [address] PCP - General Family Medicine 09/15/23 Paula Tuttle RN [address] [place] [address] Research Nurse Hematology/Oncology 06/05/20 [place] PhD [address] [place] [address] Physician Hematology/Oncology 06/05/20 Fish Smoker Relationship Specialty Start Date End Date Rolf Chung CNP [address] [place], [place] [phone] PCP - General Family Medicine 09/15/23 Paula Tuttle, RN [address] [place] [address] Research Nurse Hematology/Oncology 06/05/20 [place] PhD [address] [place] [address] Physician Hematology/Oncology 06/05/20 Fish Smoker Relationship Specialty Start Date End Date Aman Pack MD [address] [place] [address] PCP - General Family Medicine 04/08/24 Rolf Chung, ATHLETIC COACH [address] [place] [address] Nurse Practitioner Family Medicine 08/07/23 Fish Smoker Relationship Specialty Start Date End Date Aman Pack MD [address] [place] [address] PCP - General Family Medicine 04/08/24 Rolf Chung, YANE [address] [place] [address] Nurse Practitioner Family Medicine 08/07/23 Fish Smoker Relationship Specialty Start Date End Date Aman Pack MD [address] [place] [address] PCP - General Family Medicine 04/08/24 Rolf Chung NP [address] [place] [address] Nurse Practitioner Family Medicine 08/07/23 Fish Smoker Relationship Specialty Start Date End Date Aman Pack MD [address] [place] [address] PCP - General Family Medicine 04/08/24 Rolf Chung NP [address] [place] [address] Nurse Practitioner Family Medicine 08/07/23 Fish Smoker Relationship Specialty Start Date End Date Rolf Chung, EAR NOSE THROAT PHYSICIAN [address] [place] [address] PCP - General Family Medicine 09/15/23 Paula Tuttle, MOISÉS [address] [place] [address] Research Nurse Hematology/Oncology 06/05/20 [place], PhD [address] [place], [place] [address] Physician Hematology/Oncology 06/05/20 Fish Smoker Relationship Specialty Start Date End Date Rolf Chung APRN-EAR NOSE THROAT PHYSICIAN PCP - General Nurse Practitioner 05/19/24 Fish Smoker Relationship Specialty Start Date End Date Rolf Chung, SALES AGENT CASUALTY INSURANCE-EAR NOSE THROAT PHYSICIAN [address] [place] [address] PCP - General Nurse Practitioner 12/28/22 Fish Smoker Relationship Specialty Start Date End Date Rolf Chung, SALES AGENT CASUALTY INSURANCE-[facility] [address] [place] [address] PCP - General Nurse Practitioner 12/28/22 Fish Smoker Relationship Specialty Start Date End Date Rolf Chung, SALES AGENT [facility] [address] [place] [address] PCP - General Nurse Practitioner 12/28/22 Fish Smoker Relationship Specialty Start Date End Date Aman Pack MD [address] [place] [address] PCP - General Family Medicine 04/08/24 Rolf Chung NP [address] [place] [address] Nurse Practitioner Family Medicine 08/07/23 Fish Smoker Relationship Specialty Start Date End Date Aman Pack MD [address] [place] [address] PCP - General Family Medicine 04/08/24 Rolf Chung NP [address] [place] [address] Nurse Practitioner Family Medicine 08/07/23 Fish Smoker Relationship Specialty Start Date End Date Rolf Chung, SALES AGENT CASUALTY INSURANCE-EAR NOSE THROAT PHYSICIAN PCP - General Nurse Practitioner 05/19/24 Fish Smoker Relationship Specialty Start Date End Date Aman Pack MD [address] [place] [address] PCP - General Family Medicine 04/08/24 Rolf Chung NP [address] [place] [address] Nurse Practitioner Family Medicine 08/07/23 Fish Smoker Relationship Specialty Start Date End Date Aman Pack MD [address] [place] [address] PCP - General Family Medicine 04/08/24 Rolf Chung NP [address] [place] [address] Nurse Practitioner Family Medicine 08/07/23 Fish Smoker Relationship Specialty Start Date End Date Aman Pack MD [address] [place] [address] PCP - General Family Medicine 04/08/24 Rolf Chung NP [address] [place] [address] Nurse Practitioner Family Medicine 08/07/23 Fish Smoker Relationship Specialty Start Date End Date Aman Pack MD [address] [place] [address] PCP - General Family Medicine 04/08/24 Rolf Chung NP [address] [place] [address] Nurse Practitioner Family Medicine 08/07/23 Fish Smoker Relationship Specialty Start Date End Date Rolf Chung CNP [address] [place], [place] [address] PCP - General Family Medicine 09/15/23 Paula Tuttle, RN [address] [place] [address] Research Nurse Hematology/Oncology 06/05/20 William [place], PhD [address] [place], [place] [address] Physician Hematology/Oncology 06/05/20 Fish Smoker Relationship Specialty Start Date End Date Aman Pack MD [address] [place] [address] PCP - General Family Medicine 04/08/24 Rolf Chung NP [address] [place] [address] Nurse Practitioner Family Medicine 08/07/23 Fish Smoker Relationship Specialty Start Date End Date Aman Pack MD [address] [place] [address] PCP - General Family Medicine 04/08/24 Rolf Chung NP [address] [place] [address] Nurse Practitioner Family Medicine 08/07/23 Fish Smoker Relationship Specialty Start Date End Date Aman Pack MD [address] [place] [address] PCP - General Family Medicine 04/08/24 Rolf Chung, ATHLETIC COACH [address] [place] [address] Nurse Practitioner Family Medicine 08/07/23 Fish Smoker Relationship Specialty Start Date End Date Rolf Chung CNP [address] [place] [address] PCP - General Family Medicine 09/15/23 Paula Tuttle, MOISÉS [address] [place] [address] Research Nurse Hematology/Oncology 06/05/20 [place] PhD [address] [place] [address] Physician Hematology/Oncology 06/05/20 Fish Smoker Relationship Specialty Start Date End Date Aman Pack MD [address] [place] [address] PCP - General Family Medicine 04/08/24 Rolf Chung, ATHLETIC COACH [address] [place] [address] Nurse Practitioner Family Medicine 08/07/23 Fish Smoker Relationship Specialty Start Date End Date Aman Pack MD [address] [place] [address] PCP - General Family Medicine 04/08/24 Rolf Chung, ATHLETIC COACH [address] [place] [address] Nurse Practitioner Family Medicine 08/07/23 Fish Smoker Relationship Specialty Start Date End Date Rolf Chung, EAR NOSE THROAT PHYSICIAN [address] [place] [address] PCP - General Family Medicine 09/15/23 Paula Tuttle, MOISÉS [address] [place] [address] Research Nurse Hematology/Oncology 06/05/20 [place] PhD [address] [place] [address] Physician Hematology/Oncology 06/05/20 Fish Smoker Relationship Specialty Start Date End Date [facility] EAR NOSE THROAT PHYSICIAN [address] [place] [address] PCP - General [facility] Medicine 09/15/23 Paula Tuttle RN [address] [place] [address] Research Nurse Hematology/Oncology 06/05/20 William [place] PhD [address] [place] [address] Physician Hematology/Oncology 06/05/20 Fish Smoker Relationship Specialty Start Date End Date Rolf Chung EAR NOSE THROAT PHYSICIAN [address] [place] [address] PCP - General Family Medicine 09/15/23 Paula Tuttle RN [address] [place] [address] Research Nurse Hematology/Oncology 06/05/20 William [place] PhD [address] [place] [address] Physician Hematology/Oncology 06/05/20 Fish Smoker Relationship Specialty Start Date End Date Aman Pack MD [address] [place] [address] PCP - General Family Medicine 04/08/24 Rolf Chung NP [address] [place] [address] Nurse Practitioner Family Medicine 08/07/23 Fish Smoker Relationship Specialty Start Date End Date Aman Pack MD [address] [place] [address] PCP - General Family Medicine 04/08/24 Rolf Chung NP [address] [place] [address] Nurse Practitioner Family Medicine 08/07/23 Fish Smoker Relationship Specialty Start Date End Date Aman Pack MD [address] [place] [address] PCP - General Family Medicine 04/08/24 Rolf Chung NP [address] [place] [address] Nurse Practitioner Family Medicine 08/07/23 Fish Smoker Relationship Specialty Start Date End Date Aman Pack MD [address] [place] [address]-1002 PCP - General Family Medicine 04/08/24 Rolf Chung NP [address] [place] [address] Nurse Practitioner Family Medicine 08/07/23 Fish Smoker Relationship Specialty Start Date End Date Aman Pack MD [address] [place] [address] PCP - General Family Medicine 04/08/24 Rolf Chung NP [address] [place] [address] Nurse Practitioner Family Medicine 08/07/23 Fish Smoker Relationship Specialty Start Date End Date Aman Pack MD [address] [place] [address] PCP - General Family Medicine 04/08/24 Rolf Chung NP [address] [place] [address] Nurse Practitioner Family Medicine 08/07/23 Fish Smoker Relationship Specialty Start Date End Date Aman Pack MD [address] [place] [address] PCP - General Family Medicine 04/08/24 Rolf Chung NP [address] [place] [address] Nurse Practitioner Family Medicine 08/07/23 Fish Smoker Relationship Specialty Start Date End Date [facility] EAR NOSE THROAT PHYSIC[facility] [address] [place] [address] PCP - General Family Medicine 09/15/23 Paula Tuttle, RN [address] [place] [address] Research Nurse Hematology/Oncology 06/05/20 William Howell MD, PhD [id number] [place] [address] Physician Hematology/Oncology 06/05/20 Fish Smoker Relationship Specialty Start Date End Date MadhavimarieRolf brown CNP [address] [place] [address] PCP - General Family Medicine 09/15/23 Paula Tuttle, MOISÉS [address] [place] [address] Research Nurse Hematology/Oncology 06/05/20 William Howell MD, PhD [address] [place] [address] Physician Hematology/Oncology 06/05/20 Fish Smoker Relationship Specialty Start Date End Date MadhaviRolf brown, EAR NOSE THROAT PHYSICIAN [address] [place] [address] PCP - General Family Medicine 09/15/23 Paula Tuttle RN [address] [place] [address] Research Nurse Hematology/Oncology 06/05/20 William Howell MD, PhD [id number] [place] [address] Physician Hematology/Oncology 06/05/20 Fish Smoker Relationship Specialty Start Date End Date Aman Pack MD [address] [place] [address] PCP - General Family Medicine 04/08/24 Rolf Chung NP [address] [place] [address] Nurse Practitioner Family Medicine 08/07/23 Fish Smoker Relationship Specialty Start Date End Date Aman Pack MD [address] [place] [address] PCP - General Family Medicine 04/08/24 Rolf Chung NP [address] [place] [address] Nurse Practitioner Family Medicine 08/07/23 Fish Smoker Relationship Specialty Start Date End Date Aman Pack MD [address] [place] [address] PCP - General Family Medicine 04/08/24 Rolf Chung NP [address] [place] [address] Nurse Practitioner Family Medicine 08/07/23 Fish Smoker Relationship Specialty Start Date End Date Aman Pack MD [address] [place] [address] PCP - General Family Medicine 04/08/24 Rolf Chung NP [address] [place] [address] Nurse Practitioner Family Medicine 08/07/23 Fish Smoker Relationship Specialty Start Date End Date Aman Pack MD [address] [place] [address] PCP - General Family Medicine 04/08/24 Rolf Chung NP [address] [place] [address] Nurse Practitioner Family Medicine 08/07/23 Fish Smoker Relationship Specialty Start Date End Date Aman Pack MD [address] [place] [address] PCP - General Family Medicine 04/08/24 Rolf Chung NP [address] [place] [address] Nurse Practitioner Family Medicine 08/07/23 Fish Smoker Relationship Specialty Start Date End Date Aman Pack MD [address] [place] [address] PCP - General Family Medicine 04/08/24 Rolf Chung NP [address] [place] [address] Nurse Practitioner Family Medicine 08/07/23 Fish Smoker Relationship Specialty Start Date End Date Aman Pack MD [address] [place] [address] PCP - General Family Medicine 04/08/24 Rolf Chung NP [address] [place] [address] Nurse Practitioner Family Medicine 08/07/23 Fish Smoker Relationship Specialty Start Date End Date Aman Pack MD [address] [place] [address] PCP - General Family Medicine 04/08/24 Rolf Chung NP [address] [place] [address] Nurse Practitioner Family Medicine 08/07/23 Fish Smoker Relationship Specialty Start Date End Date Aman Pack MD [address] [place] [address] PCP - General Family Medicine 04/08/24 Rolf Chung NP [address] [place] [address] Nurse Practitioner Family Medicine 08/07/23 Fish Smoker Relationship Specialty Start Date End Date Rolf Chung EAR NOSE THROAT PHYSICIAN [address] [place] [address] PCP - General Family Medicine 09/15/23 Paula Tuttle, MOISÉS [address] [place] [address] Research Nurse Hematology/Oncology 06/05/20 [place] PhD [address] [place] [address] Physician Hematology/Oncology 06/05/20 Fish Smoker Relationship Specialty Start Date End Date Aman Pack MD [address] [place] [address] PCP - General Family Medicine 04/08/24 Rolf Chung NP [address] [place] [address] Nurse Practitioner Family Medicine 08/07/23 Fish Smoker Relationship Specialty Start Date End Date Rolf Chung, SALES AGENT CASUALTY INSURANCE-EAR NOSE THROAT PHYSICIAN PCP - General Nurse Practitioner 05/19/24 Fish Smoker Relationship Specialty Start Date End Date Rolf Chung EAR NOSE THROAT PHYSICIAN [address] [place] [address] PCP - General Family Medicine 09/15/23 Paula Tuttle, RN [address] [place] [address] Research Nurse Hematology/Oncology 06/05/20 [place] [address] [place] [address] Physician Hematology/Oncology 06/05/20 Fish Smoker Relationship Specialty Start Date End Date Rolf Chung, SALES AGENT CASUALTY INSURANCE-EAR NOSE THROAT PHYSICIAN PCP - General Nurse Practitioner 05/19/24 Fish Smoker Relationship Specialty Start Date End Date Aman Pack MD [address] [place] [address] PCP - General Family Medicine 04/08/24 Rolf Chung NP [address] [place] [address] Nurse Practitioner Family Medicine 08/07/23 Fish Smoker Relationship Specialty Start Date End Date Aman Pack MD [address] [place] [address] PCP - General Family Medicine 04/08/24 Rolf Chung NP [address] [place] [address] Nurse Practitioner Family Medicine 08/07/23 Fish Smoker Relationship Specialty Start Date End Date Aman Pack MD [address] [place] [address] PCP - General Family Medicine 04/08/24 Rolf Chung NP [address] [place] [address] Nurse Practitioner Family Medicine 08/07/23 Fish Smoker Relationship Specialty Start Date End Date Aman Pack MD [address] [place] [address] PCP - General Family Medicine 04/08/24 Rolf Chung NP [address] [place] [address] Nurse Practitioner Family Medicine 08/07/23 Fish Smoker Relationship Specialty Start Date End Date Aman Pack MD [address] [place] [address] PCP - General Family Medicine 04/08/24 Rolf Chung NP [address] [place] [address] Nurse Practitioner Family Medicine 08/07/23 Fish Smoker Relationship Specialty Start Date End Date Aman Pack MD [address] [place] [address] PCP - General Family Medicine 04/08/24 Rolf Chung NP [address] [place] [address] Nurse Practitioner Family Medicine 08/07/23 Fish Smoker Relationship Specialty Start Date End Date Aman Pack MD [address] [place] [address]-1002 PCP - General Family Medicine 04/08/24 Rolf Chung NP [address] [place] [address] Nurse Practitioner Family Medicine 08/07/23 Fish Smoker Relationship Specialty Start Date End Date Aman Pack MD [address] [place] [address] PCP - General Family Medicine 04/08/24 Rolf Chung NP [address] [place] [address] Nurse Practitioner Family Medicine 08/07/23 Fish Smoker Relationship Specialty Start Date End Date Aman Pack MD [address] [place] [address] PCP - General Family Medicine 04/08/24 Rolf Chung, YANE [address] [place] [address] Nurse Practitioner Family Medicine 08/07/23 Fish Smoker Relationship Specialty Start Date End Date Rolf Chung, EAR NOSE THROAT PHYSICIAN [address] [place] [address] PCP - General Family Medicine 09/15/23 Paula Tuttle, RN [address] [place] [address] Research Nurse Hematology/Oncology 06/05/20 [place] [address] [place] [address] Physician Hematology/Oncology 06/05/20 Fish Smoker Relationship Specialty Start Date End Date Rolf Chung EAR NOSE THROAT PHYSICIAN [address] [place] [address] PCP - General Family Medicine 09/15/23 Paula Tuttle RN [address] [place] [address] Research Nurse Hematology/Oncology 06/05/20 [place] [address] [place] [address] Physician Hematology/Oncology 06/05/20 Fish Smoker Relationship Specialty Start Date End Date Rolf Chung, EAR NOSE THROAT PHYSICIAN [address] [place] [address] PCP - General Family Medicine 09/15/23 Paula Tuttle, RN [address] [place] [address] Research Nurse Hematology/Oncology 06/05/20 [place] [address] [place] [address] Physician Hematology/Oncology 06/05/20 Fish Smoker Relationship Specialty Start Date End Date Aman Pack MD [address] [place] [address] PCP - General Family Medicine 04/08/24 Rolf Chung NP [address] [place] [address] Nurse Practitioner Family Medicine 08/07/23 Fish Smoker Relationship Specialty Start Date End Date Aman Pack MD [address] [place] [address] PCP - General Family Medicine 04/08/24 Rolf Chung NP [address] [place] [address] Nurse Practitioner Family Medicine 08/07/23 Fish Smoker Relationship Specialty Start Date End Date Aman Pack MD [address] [place] [address] PCP - General Family Medicine 04/08/24 Rolf Chung NP [address] [place] [address] Nurse Practitioner Family Medicine 08/07/23 Fish Smoker Relationship Specialty Start Date End Date Aman Pack MD [address] [place] [address] PCP - General Family Medicine 04/08/24 Rolf Chung NP [address] [place] [address] Nurse Practitioner Family Medicine 08/07/23 Fish Smoker Relationship Specialty Start Date End Date Aman Pack MD [address] [place] [address] PCP - General Family Medicine 04/08/24 Rolf Chung NP [address] [place] [address] Nurse Practitioner Family Medicine 08/07/23 Fish Smoker Relationship Specialty Start Date End Date Aman Pack MD [address] [place] [address] PCP - General Family Medicine 04/08/24 Rolf Chung NP [address] [place] [address] Nurse Practitioner Family Medicine 08/07/23 Fish Smoker Relationship Specialty Start Date End Date Aman Pack MD [address] [place] [address] PCP - General Family Medicine 04/08/24 Rolf Chung NP [address] [place] [address] Nurse Practitioner Family Medicine 08/07/23 Fish Smoker Relationship Specialty Start Date End Date Aman Pack MD [address] [place] [address] PCP - General Family Medicine 04/08/24 Rolf Chung NP [address] [place] [address] Nurse Practitioner Family Medicine 08/07/23 Fish Smoker Relationship Specialty Start Date End Date Aman Pack MD [address] [place] [address] PCP - General Family Medicine 04/08/24 Rolf Chung NP [address] [place] [address] Nurse Practitioner Family Medicine 08/07/23 Fish Smoker Relationship Specialty Start Date End Date Aman Pack MD [address] [place] [address] PCP - General Family Medicine 04/08/24 Rolf Chung NP [address] [place] [address] Nurse Practitioner Family Medicine 08/07/23 Fish Smoker Relationship Specialty Start Date End Date Aman Pack MD [address] [place] [address] PCP - General Family Medicine 04/08/24 Rolf Chung NP [address] [place] [address] Nurse Practitioner Family Medicine 08/07/23 Fish Smoker Relationship Specialty Start Date End Date Aman Pack MD [address] [place] [address] PCP - General Family Medicine 04/08/24 Rolf Chung NP [address] [place] [address] Nurse Practitioner Family Medicine 08/07/23 Fish Smoker Relationship Specialty Start Date End Date Aman Pack MD [address] [place] [address] PCP - General Family Medicine 04/08/24 Rolf Chung NP [address] [place] [address] Nurse Practitioner Family Medicine 08/07/23 Fish Smoker Relationship Specialty Start Date End Date Aman Pack MD [address] [place] [address] PCP - General Family Medicine 04/08/24 Rolf Chung NP Nurse Practitioner Family Medicine 08/07/23 Fish Smoker Relationship Specialty Start Date End Date Aman Pack MD [address] [place] [address] PCP - General Family Medicine 04/08/24 Rolf Chung NP Nurse Practitioner Family Medicine 08/07/23 Fish Smoker Relationship Specialty Start Date End Date Aman Pack MD PCP - General Family Medicine 04/08/24 Rolf Chung NP Nurse Practitioner Family Medicine 08/07/23 Fish Smoker Relationship Specialty Start Date End Date Rolf Chung APRN-EAR NOSE THROAT PHYSICIAN PCP - General Nurse Practitioner 05/19/24 (unrecognized sect ion and content) No Status Records FoundNo Status Records FoundNo Status Records FoundNo Status Records FoundNo Status Records FoundNo Status Records FoundNo Status Records FoundNo Status Records FoundNo Status Records Found INFORMATION SOURCE (unrecogn ized section and content) DATE CREATED AUTHOR 08/13/2022 [facility] DATE CREATED AUTHOR AUTHOR'S ORGANIZ ATION 10/17/2022 [facility] DATE CREATED AUTHOR AUTHOR'S ORGANIZ ATION 08/10/2023 [facility] DATE CREATED AUTHOR AUTHOR'S ORGANIZ ATION 06/02/2024 [facility] DATE CREATED AUTHOR AUTHOR'S ORGANIZ ATION 10/14/2024 [facility] DATE CREATED AUTHOR AUTHOR'S ORGANIZ ATION 10/22/2024 [facility] DATE CREATED AUTHOR AUTHOR'S ORGANIZ ATION 02/04/2025 [facility] DATE CREATED AUTHOR AUTHOR'S ORGANIZ ATION 02/06/2025 [facility] DATE CREATED AUTHOR AUTHOR'S ORGANIZ ATION 02/11/2025 [facility] Goals (unrecognized section and content) Goals may [...] 0848 (Given - Provid er: Chad Aguirre, DO - Comment: sacral) midazolam (PF) injection (VERSED) (CANCELED) INTRAVENOUS, X (OR/PROCEDURE) PRN, Starting on Fri03/19/24 at 0844, Until Fri03/19/24 at 0923, Intraprocedure 0844 (Given - Provid er: Sadaf Farah RN)0850 (Given - Provider: Sadaf Farah RN) PRN Medication Order 09/08/2024 09/09/2024 09/10/2024 fentaNYL 50 mcg/mL injection (SUBLIMAZE) (CANCELED) INTRAVENOUS, X (OR/PROCEDURE) PRN, Starting on Fri09/10/24 at 0842, Until Fri09/10/24 at 0918, Intraprocedure 0842 (Given - Provid er: Emily Muro RN)0849 (Given - Provider: Emily Muro RN) lidocaine (PF) 20 mg/mL (2 %) injection (XYLOCAINE) (CANCELED) SUBCUTANEOUS, X (OR/PROCEDURE) PRN, Starting on Fri09/10/24 at 0844, Until Fri09/10/24 at 0918, Intraprocedure 0844 (Given - Provid er: Aramis Mccray MD - Comment: biopsy site) midazolam (PF) injection (VERSED) (CANCELED) INTRAVENOUS, X (OR/PROCEDURE) PRN, Starting on Fri09/10/24 at 0842, Until Fri09/10/24 at 0918, Intraprocedure 0842 (Given - Provid er: Emily Muro RN)0849 (Given - Provider: Emily Muro RN) FOR RECORDS PERTAINING TO PATIENTS WHO [...] BE BASED ON THE PRIMARY CLINICAL RECORDS. [facility]. provides no warranty or guarantee of the accuracy or completeness of information in this document.
[2025-02-18 13:01] LABS: Microalbum Creatinine Ratio Ur 42.8 mg/g (0.0-29.9)
== END 2025-02-18 11:40 | disposition home or self-care (01) ==
LOC: LAB 11:40
PROVIDERS: PCP Nurse Practitioner; Visit Provider Nurse Practitioner
DX: E11.65 Type 2 diabetes mellitus with hyperglycemia (principal); Z79.4 Long term (current) use of insulin; I10 Essential (primary) hypertension; Z12.5 Encounter for screening for malignant neoplasm of prostate
CPT/HCPCS: 36415; 82043; 82570; G0103

== ENCOUNTER 2025-03-21 11:37 | Emergency (ER) | payer OTHER, SELFPAY ==
--- OUTSIDE RECORDS SUMMARY | 2025-03-08 15:30 | XMS_ITS | Encounter Summary ---
Author Organization [facility] Healthcare Address [address] [place] [address] Care Team Providers Care Bartacker Name Role Phone Buffy Chung NP Unavailable [phone] Aman Mathias MD Primary Care Provider [phone] Reason for Visit * Rehabilitation - Outpatient (Routine) - Closed Specialty Diagnoses / Procedures Referred By Yuri metzger Referred To Contact Physical Therapy Diagnoses Sprain of left shoulder, initial encounter Tear of left supraspinatus tendon Procedures [place] OFFICE/OUTPATIENT [facility] 60 MINUTES Yaniv Thompson, SOUND TECHNICIAN SUPERVISOR [address] [place] [address] Phone: tel: fax: Jason Elizabeth, PT [address] [place] [address] Phone: tel: fax: Referral ID Status Reason Start Date Expiration Date V isits Requested Visits Authorized [id number] Closed Specialty Services Required 12/14/2024 03/16/2025 24 24 Encounter Details Date Type Department Care Team (Late st Contact Info) Description 03/08/2025 3:30 PM EDT Treatment [facility] [address] [place] [address] Melisa Rocha PTA [address] [place] [address] Tear of left supraspinatus tendon (Primary Dx); [...] this encounter Progress Notes * Melisa Rocha, SILK WEAVER - 03/08/2025 3:30 PM EDT Images from the original note were not included. Physical Therapy Physical Therapy Treatment Visit Patient Name: Zachary Avitia Today's Date: 03/08/2025 Encounter Diagnoses Name Primary? Tear of left supraspinatus tendon Yes Left bicipital tenosynovitis Sprain of left shoulder, unspecified shoulder sprain type, initial encounter Sprain of left shoulder, initial encounter Visit number: on C9 Continue Physical Therapy on new C9 through 03/16/15 Time in: 4:57 pm Time out: 5:45 pm Supervised time: 38 min Total time: 48 min Subjective Zachary Avitia 54 y.o. 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 (01/04/25) Treatment Interventions Manual Therapy:x10 min PROM and stretching all planes Therapeutic Exercise:x 28 min supervised ROM/flexibility, strength as appropriate. Modalities:x10 min CP L shoulder Assessment/Plan L shoulder pain, decreased ROM, weakness causing increased difficulty with ADLs/self care, decreased QOL s/p RCR, SAD, biceps tenodesis 08/16/24 following trip/fall injury at work 05/19/24 Pt demos good tolerance to strength progression per grid. Fatigued and difficulty with overhead press with 1# although improvement again today. PROM near norml limits in all planes. Continue as tolerated. Cosigned by Jason Elizabeth, PT at 03/08/2025 5:25 PM EDT documented in this encounter Plan of Treatment Upcoming Encounters Date Type Department Care Team (Late st Contact Info) Description 07/25/2025 8:15 AM EST Office Visit [facility] [address] [facility] [place] [address] Yaniv Thompson NP [address] [place], [place] [phone] documented as of this encounter Visit Diagnoses Diagnosis Tear of left supraspinatus tendon- Primary Left bicipital tenosynovitis Sprain of left shoulder, unspecified shoulder sprain type, initial encounter documented in this encounter Care Teams Bartacker Relationship Specialty Start Date End Date Aman Mathias MD PCP - General Family Medicine 04/08/24 Buffy Chung NP Nurse Practitioner Family Medicine 08/07/23 documented as of this encounter
--- OUTSIDE RECORDS SUMMARY | 2025-03-10 16:00 | XMS_ITS | Encounter Summary ---
Author Organization [facility] Healthcare Address [address] [place] [address] Care Team Providers Care Fifth Grade Teacher Name Role Phone Buffy Chung NP Unavailable [phone] Aman Mathias MD Primary Care Provider [phone] Reason for Visit * Rehabilitation - Outpatient (Routine) - Closed Specialty Diagnoses / Procedures Referred By Yuri metzger Referred To Contact Physical Therapy Diagnoses Sprain of left shoulder, initial encounter Tear of left supraspinatus tendon Procedures [place] OFFICE/OUTPATIENT [facility] 60 MINUTES Yaniv Thompson, ARCHITECTURE DRAFTER [address] [place] [address] Phone: tel: fax: Jason Elizabeth, PT [address] [place] [address] Phone: tel: fax: Referral ID Status Reason Start Date Expiration Date V isits Requested Visits Authorized [id number] Closed Specialty Services Required 12/14/2024 03/16/2025 24 24 Encounter Details Date Type Department Care Team (Late st Contact Info) Description 03/10/2025 4:00 PM EDT Treatment [facility] [address] [place] [address] Jason Elizabeth, PT [address] [place] [address] Tear of left supraspinatus tendon (Primary Dx); [...] as of this encounter Progress Notes * Jason Rascon Clara, PT - 03/10/2025 4:00 PM EDT Images from the original note were not included. Physical Therapy Physical Therapy Treatment Visit Patient Name: Zachary Avitia Today's Date: 03/10/2025 Encounter Diagnoses Name Primary? Tear of left supraspinatus tendon Yes Left bicipital tenosynovitis Sprain of left shoulder, unspecified shoulder sprain type, initial encounter Visit number: on C9 Continue Physical Therapy on new C9 through 03/16/15 Time in: 3:25 pm Time out: 4:15 pm Supervised time: 39 min Total time: 50 min Subjective Zachary Avitia 54 y.o. male presents to physical therapy w/ chief c/o L shoulder/arm pain. Mechanism of Onset: trip/fall 05/19/24 a work, SX 08/16/24, pt was last here 11/18/24, improving overall but still c/o stiffness and weakness. 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 (01/04/25) Treatment Interventions Manual Therapy: x9 min PROM and stretching all planes, now near normal limits grossly Therapeutic Exercise:x 30 min supervised per exercise grid ROM/flexibility, strength as appropriate. Modalities: x10 min CP L shoulder Assessment/Plan L shoulder pain, decreased ROM, weakness causing increased difficulty with ADLs/self care, decreased QOL s/p RCR, SAD, biceps tenodesis 08/16/24 following trip/fall injury at work 05/19/24 Pt demos good tolerance to strength and flexibility routine per grid Overhead endurance continues to slowly improve. PROM near norml limits in all planes. Continue as tolerated. documented in this encounter Plan of Treatment Upcoming Encounters Date Type Department Care Team (Late st Contact Info) Description 07/25/2025 8:15 AM EST Office Visit [facility] [address] [place] [phone] Yaniv Thompson NP [address] [place] [address] documented as of this encounter Visit Diagnoses Diagnosis Tear of left supraspinatus tendon- Primary Left bicipital tenosynovitis Sprain of left shoulder, unspecified shoulder sprain type, initial encounter documented in this encounter Care Teams Fifth Grade Teacher Relationship Specialty Start Date End Date Aman Mathias MD PCP - General Family Medicine 04/08/24 Buffy Chung NP Nurse Practitioner Family Medicine 08/07/23 documented as of this encounter
--- OUTSIDE RECORDS SUMMARY | 2025-03-15 15:00 | XMS_ITS | Encounter Summary ---
Author Organization [facility] Healthcare Address [address] [place] [address] Care Team Providers Care Bull Gang Supervisor Name Role Phone Buffy Chung NP Unavailable [phone] Aman Mathias MD Primary Care Provider [phone] Reason for Visit * Rehabilitation - Outpatient (Routine) - Closed Specialty Diagnoses / Procedures Referred By Yuri metzger Referred To Contact Physical Therapy Diagnoses Sprain of left shoulder, initial encounter Tear of left supraspinatus tendon Procedures [place] OFFICE/OUTPATIENT [facility] 60 MINUTES Yaniv Thompson, HEAD CD REACTOR OPERATOR [address] [place] [address] Phone: tel: fax: Jason Elizabeth, PT [address] [place] [address] Phone: tel: fax: Referral ID Status Reason Start Date Expiration Date V isits Requested Visits Authorized [id number] Closed Specialty Services Required 12/14/2024 03/16/2025 24 24 Encounter Details Date Type Department Care Team (Late st Contact Info) Description 03/15/2025 3:00 PM EDT Treatment [facility] [address] [place] [address] Ava Aldana PTA Tear of left supraspinatus tendon (Primary [...] as of this encounter Progress Notes * Avarobert Aldana, FAMILY COURT JUSTICE - 03/15/2025 3:00 PM EDT Physical Therapy Physical Therapy Treatment Visit Patient Name: Zachary Avitia Today's Date: 03/15/2025 Encounter Diagnoses Name Primary? 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 (01/04/25) Treatment Interventions Manual Therapy: x8 min PROM and stretching all planes, now [...] endurance continues to slowly improve. PROM near normal limits in all planes. Reviewed HEP with pt, demos good understanding. Pt to continue with HEP. Cosigned by Jason Elizabeth PT at 03/15/2025 4:38 PM EDT documented in this encounter Plan of Treatment Upcoming Encounters Date Type Department Care Team (Late st Contact Info) Description 07/25/2025 8:15 AM EST Office Visit [facility] [address] [place] [address] Yaniv Thompson, YANE [address] [place], [place] [id number] documented as of this encounter Visit Diagnoses Diagnosis Tear of left supraspinatus tendon- Primary Left bicipital tenosynovitis Sprain of left shoulder, unspecified shoulder sprain type, initial encounter documented in this encounter Care Teams Bull Gang Supervisor Relationship Specialty Start Date End Date Aman Mathias MD PCP - General Family Medicine 04/08/24 Buffy Chung NP Nurse Practitioner Family Medicine 08/07/23 documented as of this encounter
--- OUTSIDE RECORDS SUMMARY | 2025-03-16 10:00 | XMS_ITS | Encounter Summary ---
Author Organization [facility] Address [facility] [place] [place] [address] Care Team Providers Care Biology Adjunct Instructor Name Role Phone Paula Tuttle RN Unavailable [facility] HospitalWilliam Goncalves MD, PhD Unavailable [phone] Buffy Chung CNP Primary Care Provider [phone] Source Comments In the event this information is protected by the Federal Confidentiality of Alcohol and Drug AbusePatient Records regulations: The Federal rules restrict any use of the information to criminally investigate or prosecute any alcohol or drug abuse patient.[facility] Reason for Visit * Reason Comments Research ACTG 1920 / 20-998 Encounter Details Date Type Department Care Team (Late st Contact Info) Description 03/16/2025 10:00 AM EDT Nurse Visit Hematology/Oncology [address] [place] [address] Paula Tuttle RN [address] [place] [address] CML (chronic myeloid leukemia) (HCC) (Primary Dx) Social History Tobacco Use Types [...] is lower risk 9 09/09/2024 Data from: https://www.neighborhoodatlas.[facility]/. Last address used for calculation [address] 09/09/[birth year]24 Sex and Gender Information Value [...] Assessment Author No 11/23/2014 3:20 PM Bety Pattno RN * Do you have difficulty dressing [...] documented in this encounter Progress Notes * Paula Tuttle RN - 03/16/2025 10:00 AM EDTSummarsheryl: ACTG 1920 / 20-998 ACTG 192-998 A phase 1b study of the pharmacokinetics, safety and efficacy of orally administered [id number] in subjects with refractory chronic myeloid leukemia [...] participate on the study by the sponsor 03/16/2025 Cycle 60 day 29 Subject #: [id number] Patient here today with his , pleasant and engaged in conversation. 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 Patient reported that a couple weeks ago he had some shortness of breath and chest pain as he referencedhis right side of his chest. Patient reports that he needs to make a follow up appointment with hiscardiologist. Patient denies any shortness of breath or chest pain today. Today's high sensitivity troponin T resulted at 54. Dr. Cavazos explained to the patient that he requires a work up in the ER d/t to the nature of the elevated high sensitivity troponin T. Patient aware that he will not get study drug today or his ECHO and that he will keep his bone marrow biopsy appointment. Dr. Cavazos reviewed all labs and AE's with attributions. ECHO LVEF: n/a BMBx: 09/10/2024 showed Overall, the morphologic features are relatively unremarkable; however, ancillary testing may be more sensitive for residual/persistent CML EKG: QTcF 419 ms in the ER PE: Dr. Cavazos ECO VS: 03/16/25 Weight 118 kg (260 lb 2.3 oz) BSA 0 BMI 0 Temp 36.8 ??C (98.3 ??F) Pulse 67 Resp 13 BP 123/62 SpO2 95 % Note: Showing the most recent values for these dates. There are additional values that can be seen in Synopsis. PAST MEDICAL HISTORY Diagnosis Date Status CML [...] L4 and L5 infusion Prior to 03/2012 [place] ANESTH,KNEE JOINT; NOS right knee Prior to [...] 03/2016 Bosutinib 03/2016 - 05/02/2017 [facility] 2915 15-875 trial of Ponatinib [...] %IS .18 06/16/2024 BCR/ABL1 P210 %IS .27 12/22/2024 BCR/ABL1 P210 %IS .28 Medications: NKA Medication Dose Start Date Stop [...] Then (2) 500 mg capsules orally once aday for 2 days then stop. 05/22/2020 05/26/2020 For leukocytosis Hydrea (2) 500 mg capsules orally 2x/day 06/12/2020 06/16/2020 For leukocytosis Hydrea (2) 500 mg capsules orally 3x/day 06/16/2020 06/17/2020 For leukocytosis Decadron 4 mg orally 10/06/2020 For poison radha Norvasc 5 mg orally once a day 05/13/2022 05/22/2023 Blood pressure Calvin 5/325 mg 1 tab PO x 1 [...] and will not be actively followed unless theyworsen during the clinical trial. Fasting labs Day -28 06/05/2020 Leukocytosis Grade 3 UNRELATED Start date: 05/01/2020. Resolved: ongoing. Drugs used to treat: yes.Outcome: Still present. Hypertension:Stage Prehypertension Grade 1 UNRELATED [...] date: 06/05/2020. Resolved: ongoing. Drugs used to treat:yes.Outcome: Still present. Hypertriglyceridemia Grade 2 UNRELATED Start date: 06/12/2020. Resolved: ongoing. Drugs used to treat: none. Outcome: Still present. Alkaline phosphatase Grade 1 UNRELATED 136 (prior to drug)Start date: 06/19/2020. Resolved: ongoing.Drugs used to treat:no Outcome:present intermittently. Hyponatremia Grade 1 UNRELATED (prior to drug) Start date 06/19/2020 Resolved:ongoing.Drugs used to treat: no. Outcome: present intermittently CTCAE v.5 Fasting labs 03/16/2025 Hypertension Grade 1 Unrelated Start date 08/14/2020 [...] Start date:06/07/2021.Resolved:ongoing. Drugs used to treat: no. Outcome:present intermittently. Right knee pain Grade 1 Unrelated [...] 08/06/2023 Resolved:ongoing. Drugs used to treat:yes. Outcome: stillpresent. Alkaline phosphatase increased (347) Grade 2. Possibly [...] 1. Unrelated. Start date: pt reported on 12/22/2024Resolve date: ongoing. Drugs to treat: none. Outcome: still present Cardiac troponin T increased Grade 1 Possibly related Start date:03/16/2025 Resolve date: ongoing Drugs used to treat: no. Outcome:present [...] no. Outcome: resolved. Hypoalbuminemia Grade 1 Unrelated Startdate:06/22/20.Resolved:07/17/2020rugs used to treat: no. Outcome: resolved. Platelet [...] Grade 1 Unrelated Start date: 10/13/2020esolved: 10/20/2020. Drugsused to treat: none. Outcome: Resolved. Lipase increased [...] date: 11/07/2020 Resolved:02/07/2021. Drugs used to treat:yes. Outcome:resolved. Hypoalbuminemia Grade 1 Unrelated Start date:11/26/2021 Resolved: 02/18/2022 Drugs used to treat: no.Outcome: resolved Dizziness Grade 1. UNRELATED. Start date: [...] Unrelated Start date:09/05/2024 Resolved: 09/12/2024 Drugs used totreat: no. Outcome:resolved Pain-left jaw Grade 1 Possibly related Start date:09/01/2024 Resolved: 09/12/2024 Drugs used to treat:no. Outcome:resolved Cardiac troponin T increased Grade 1 Possibly related Start date:09/08/2024 Resolve date: 09/22/2024 ongoing Drugs used to treat: no. Outcome:resolved Patients last dose of study drug was 03/14/2025 Patient dosed today at holding drug Previously: Re-educated patient on how to complete [...] Patient verbalized understanding of all information provided. 03/16/2025 Patient returned drug diary from previous visit completed. Patient returned: 3 bottles, 2empty and 1 bottle with 54 tablets. The count is accurate. Patient was not provided a predated drug diary, drug on hold. Patient was given drug: n/a Patient presented today to participate on the trial ACTG 1920 / IRB 20-998. Patient to return in 3 months, appointment will be scheduled and populate on [email or web address]. 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 Patient understands that this participation is voluntary and that he may withdraw at any time during the trial. Paula Tuttle RN, OCN documented in this encounter Plan of Treatment Upcoming Encounters Date Type Department Care Team (Latest Contact Info) Description 06/08/2025 8:30 AM EST Results Only [facility] [place] [facility] [id number] [place] [id number] STUDY PT 06/08/2025 9:30 AM EST Visit (SP) Office Hematology/Oncology [id number] [place] [address] [place] [address] [place] [address] STUDY PT 06/08/2025 9:30 AM EST Nurse Visit Hematology/Oncology [address] [place] [address] Paula Tuttle, RN [address] [place] [address] STUDY PT 06/08/2025 9:45 AM EST Procedure Hematology/Oncology [address] [place] [address] EKG TO RESEARCH 06/08/2025 12:30 PM EST Office Visit Vascular Medicine [address] [place] [address] echo to research 09/12/2025 7:00 AM EDT Procedure Cardiology [address] [place] [address] Elevated troponin, history HCM 09/12/2025 7:45 AM EDT Office Visit Preventive Cardiology [address] [place] [address] Collins Beckman MD [address] [place] [address] Elevated troponin, history HCM documented as of this encounter Visit Diagnoses Diagnosis CML (chronic myeloid leukemia) (HCC)- Primary Chronic myeloid leukemia, without mention of having achieved remission documented in this encounter Care Teams Biology Adjunct Instructor Relationship Specialty Start Date End Date Buffy Chung, VOCAL MUSIC INSTRUCTOR [address] [facility] [place] [address] PCP - General Family Medicine 09/15/23 Paula Tuttle, RN [address] [place] [address] Research Nurse Hematology/Oncology 06/05/20 [place] [address] [place] [address] Physician Hematology/Oncology 06/05/20 documented as of this encounter
--- OUTSIDE RECORDS SUMMARY | 2025-03-16 10:00 | XMS_ITS | Encounter Summary ---
Author Organization [facility] Address [address] [place] [address] Care Team Providers Care Waiter/Waitress Take Out Name Role Phone Paula Tuttle RN Unavailable Unavailabl William Clemons MD, PhD Unavailable [phone] Buffy Chung CNP Primary Care Provider [phone] Source Comments In the event this information is protected by the Federal Confidentiality of Alcohol and Drug AbusePatient Records regulations: The Federal rules restrict any use of the information to criminally investigate or prosecute any alcohol or drug abuse patient.[facility] Reason for Visit * Reason Comments Established Patient * Consult, Test, Treat (Routine) - Closed Specialty Diagnoses / Procedures Referred By Contac t Referred To Contact Hematology/Oncology / HEMATOLOGY/ONCOLOGY Diagnoses Chronic myeloid leukemia, BCR/ABL-positive, 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) ok to proceed STUDY PT IRB 20-998/ACTG 1920 DX - C92.10 DATE , TIME PER SLIP PAULA Procedures OFFICE/OUTPATIENT ESTABLISHED MOD MDM 30 MIN EST PATIENT William Cavazos MD, PhD [address] [place] [address] Phone: tel: [place] [address] [place] [address] Phone: tel: fax: Referral ID Status Reason Start Date Expiration Date Visits Re quested Visits Authorized [id number] Closed 09/29/2024 06/08/2025 1 1 Encounter Details Date Type Department Care Team (Late st Contact Info) Description 03/16/2025 10:00 AM EDT Visit (SP) Office Hematology/Oncology [address] [place] [address] [place] [address] [place] [address] Social History Tobacco Use Types Packs/Day Years [...] is lower risk 9 09/09/2024 Data from: https://www.neighborhoodatlas.[facility]/. Last address used for calculation [facility] [address] 09/09/2024 Sex and Gender Information Value Date Recorded Sex Assigned at Not on file Legal Sex Male 10:16 AM EST Gender Identity Not on file Sexual Orientation Not on file documented as of this encounter Last Filed Vital Signs Vital Sign Reading Time Taken Comments Blood Pressure 148/77 03/16/2025 10:01 AM EDT Pulse 65 03/16/2025 10:01 AM EDT Temperature 36.1 C (97 F) 03/16/2025 10:01 AM EDT Respiratory Rate 18 03/16/2025 10:0 1 AM EDT Oxygen Saturation 99% 03/16/2025 10: 01 AM EDT Inhaled Oxygen Concentration - - Weight 118.8 kg (261 lb 14.5 oz) 2024 10:01 AM EDT Height - - Body Mass Index 37.58 09/15/2024 10:36 AM EDT documented in this encounter Functional Status * Are you [...] Description 06/08/2025 8:30 AM EST Results Only [facility] [address] [address] [place] [address] STUDY PT 06/08/2025 9:30 AM EST Visit (SP) Office Hematology/Oncology [address] [place] [address] [place] [address] [place] [address] STUDY PT 06/08/2025 9:30 AM EST Nurse Visit Hematology/Oncology [address] [place] [address] Paula Tuttle, RN [address] [place] [address] STUDY PT 06/08/2025 9:45 AM EST Procedure Hematology/Oncology [address] [place] [address] EKG TO RESEARCH 06/08/2025 12:30 PM EST Office Visit Vascular Medicine [address] [place], [place] [id number] echo to research 09/12/2025 7:00 AM EDT Procedure Cardiology [address] [place], [place] [phone] Elevated troponin, history HCM 09/12/2025 7:45 AM EDT Office Visit Preventive Cardiology [address] [place], [place] [phone] Collins Beckman MD [address] [place] [address] Elevated troponin, history HCM documented as of this encounter Visit Diagnoses Not on filedocumented in this encounter Care Teams Waiter/Waitress Take Out Relationship Specialty Start Date End Date Buffy Chung, LEARNING DEVELOPER [facility] [place] [address] PCP - General Family Medicine 09/15/23 Paula Tuttle, RN [address] [place] [address] Research Nurse Hematology/Oncology 06/05/20 William Cavazos MD, PhD [address] [place] [address] Physician Hematology/Oncology 06/05/20 documented as of this encounter
--- OUTSIDE RECORDS SUMMARY | 2025-03-16 11:18 | XMS_ITS | Encounter Summary ---
Author Organization [facility] Address [address] [place] [address] Care Team Providers Care Supervisor Dry Paste Name Role Phone Paula Tuttle RN Unavailable UnavailWilliam Goncalves MD, PhD Unavailable [phone] Buffy Chung CNP Primary Care Provider [phone] Source Comments In the event this information is protected by the Federal Confidentiality of Alcohol and Drug AbusePatient Records regulations: The Federal rules restrict any use of the information to criminally investigate or prosecute any alcohol or drug abuse patient.[facility] Reason for Visit * Reason Comments Sent By Pt was at outpatient appointment, was sen tin for elevated troponin on lab test that was draw, pt denies Shortness of Breath, chest pain, fevers, or diarrhea Encounter Details Date Type Department Care Team (Late st Contact Info) Description 03/16/2025 11:18 AM EDT - 03/16/2025 3:23 PM EDT Emergency [facility] Emergency Department [address] [place] [address] Lars Reinoso MD [address] [place] [address] elevated trop Discharge Disposition: Home Social History Tobacco Use Types Packs/Day Years [...] is lower risk 9 09/09/2024 Data from: https://www.neighborhoodatlas.[facility]/. Last address used for calculation [address] 09/09/2024 Sex and Gender Information Value Date Recorded Sex Assigned at Not on file Legal Sex Male 10:16 AM EST Gender Identity Not on file Sexual Orientation Not on file documented as of this encounter Last Filed Vital Signs Vital Sign Reading Time Taken Comments Blood Pressure 139/66 03/16/2025 3:00 PM EDT Pulse 64 03/16/2025 3:00 PM EDT Temperature 36.8 C (98.3 F) 03/16/2025 11:35 AM EDT Respiratory Rate 13 03/16/2025 1:00 PM EDT Oxygen Saturation 96% 03/16/2025 3:00 PM EDT Inhaled Oxygen Concentration - - Weight 118 kg (260 lb 2.3 oz) 03/16/2025 11:35 A M EDT Height - - Body Mass Index 37.33 09/15/2024 10:36 AM EDT documented in this [...] Bety Kumar RN documented in this encounter Discharge Instructions * Discharge Instructions* Ashish Overton PA-C - 03/16/2025 2:06 PM EDT Follow-up with cardiology. A follow-up appointment has been requested for you. If you do not hear from a rn teacher within the next couple of days call the number listed below to schedule a follow-up appointment Please go to the nearest ER if you develop new symptoms such as chest pain. * Attachments The following attachments cannot be sent through Care Everywhere. * Abnormal Laboratory Result (MALTESE) documented in this encounter Medications at Time of Discharge pravastatin (PRAVACHOL) 80 mg tablet Take 1 tablet by mouth once daily. 08/29/2023 blood sugar diagnostic (FREESTYLE PRECISION PELON STRIPS) test strip Use with blood glucose test one time daily 100 Strip 3 08/29/2023 insulin lispro (HUMALOG KWIKPEN) 100 unit/mL Inject 15 units with breakfast and lunch and 20 units with dinner plus sliding scale (Max daily dose of 91 units daily) 90 mL 3 06/17/2023 amLODIPine (NORVASC) 10 mg tablet Take 10 mg by mouth. 05/22/2023 flash glucose sensor (FREESTYLE MIKE 2 SENSOR) kit USE DIRECTED EVERY 14 DAYS 6 Each 3 03/21/2023 lisinopril (ZESTRIL) 20 mg tablet Take 20 mg by mouth once daily. 09/09/2022 insulin glargine (LANTUS SOLOSTAR U-100 INSULIN) 100 unit/mL (3 mL) Inject 35 Units subcutaneously twice daily. 75 mL 3 10/15/2022 flash glucose scanning reader ([employer] MIKE 2 READER) Check glucose 4 times daily 1 Each 03/19/2022 fluocinonide (LIDEX) 0.05 % ointment Apply to affected areas of rash twice daily x 2 weeks, then once daily x 2 weeks. NOT for face, armpits, or groin 60 g 1 12/22/2020 Insulin Syringe-Needle U-100 1 mL 25 x 1 syrg Use 1 syringe once daily to administer peg-interferon dose. 100 Syringe 5 12/14/2019 ibuprofen (MOTRIN) 800 mg tablet 10/24/2015 documented as of this encounter Progress Notes * Chaparro Ying RT(R) - 03/16/2025 3:23 PM EDT Radiology Service Progress Note PATIENT NAME: Derrell Merritt JR DATE OF SERVICE: March 18, 2025 TIME: 9:08 AM PATIENT IDENTITY VERIFICATION COMPLETED USING TWO (2) IDENTIFIERS: Name and Date of confirmedby patient verbally and Name and Date of confirmed by identification band. FALL SCREENING: Has the patient had 2 falls in the last year or 1 fall with injury or currently using an Ambulatory Assistive Device (Walker, Cane, Wheelchair, Crutches, etc.)? No PATIENT GENDER DATA: Assigned male at PATIENT RELEVANT IMPLANT DATA REVIEWED: Yes PATIENT PRESENTS WITH AN IMPLANTABLE OR ATTACHED TRANSITIONS MANAGER: No RADIOLOGY DEPARTMENT: CT; Exam(s) Completed: bx. Anesthesia: No PERIPHERAL IV DATA: Not applicable SIGNED BY: RT Miguel(R) March 18, 2025 9:08 AM documented in this encounter ED Notes * Jacklyn Rdz RN - 03/16/2025 3:22 PM EDT Discharged patient with diagnosis is abnormal lab result. Patient skin is warm, dry and acyanotic. Respirations even and non-labored. Pain now 0/10. Discharge and follow up instructions given. Pt stable. Patient verbalized understanding of discharge instructions. Pt has no further questions and/or concerns. Heplock removed * Lars Reinoso MD - 03/16/2025 11:29 AM EDT ED Provider Note Patient Name: Derrell Merritt JR : 1970 SERVICE DATE: 03/16/25 History Patient presents with: Sent By Md: Pt was at outpatient appointment, was sen tin for elevated troponin on lab test that was draw, pt denies Shortness of Breath, chest pain, fevers, or diarrhea Derrell Merritt JR is a 54 year old male with PMH that includes CML, HTN, GENET, psoriasisform dermatitis, DM, pancreatitis, HLD who presents upon referral from toxic with elevated troponin on routine labs. Patient has been enrolled on a CML treatment study for the past 4 years and has routine labs including troponin drawn every 3 months and today it was elevated. He states he has no chest pain or shortness of breath today but does indicate that several times a week he experiences CP while walkingfrom the parking lot into work. Pain can last for up to 5 minutes and resolves gradually when he isno longer walking. 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 Social History[1] ALLERGIES Allergen Reactions Opioids - Morphine * Vomiting, GI Upset Review of Systems Constitutional: Negative for chills and fever. Respiratory: Negative for shortness of breath. Cardiovascular: Positive for chest pain (several times a week when walking a long distance). Gastrointestinal: Negative for abdominal pain. Skin: Negative. Neurological: Negative for weakness and numbness. Psychiatric/Behavioral: Negative for behavioral problems. Physical Exam Vitals [03/16/25 1135] BP Pulse Temp Temp src Resp SpO2 Weight Height 144/77 67 36.8 ??C (98.3 ??F) Oral 24 96 % 118 kg (260 lb 2.3 oz) -- Physical Exam Vitals and nursing note reviewed. Constitutional: General: He is not in acute distress. Appearance: He is well-developed. He is not ill-appearing, toxic-appearing or diaphoretic. HENT: Head: Normocephalic and atraumatic. Eyes: General: No scleral icterus. Conjunctiva/sclera: Conjunctivae normal. Cardiovascular: Rate and Rhythm: Normal rate. Heart sounds: Normal heart sounds. No murmur heard. No friction rub. No gallop. Pulmonary: Effort: Pulmonary effort is normal. No respiratory distress. Breath sounds: Normal breath sounds. No stridor. No wheezing, rhonchi or rales. Abdominal: General: There is no distension. Palpations: Abdomen is soft. There is no mass. Tenderness: There is no abdominal tenderness. There is no guarding or rebound. Hernia: No hernia is present. Skin: General: Skin is warm and dry. Neurological: Mental Status: He is alert and oriented to person, place, and time. Psychiatric: Behavior: Behavior normal. Diagnostic Testing ED Labs Ordered and Reviewed HIGH SENSITIVITY TROPONIN T (INITIAL) - Abnormal; Notable for the following components: Result Value Ref Range TRACY High Sensitivity 53 (*) <12 ng/L All other components within normal limits HIGH SENSITIVITY TROPONIN T (SECOND) - Abnormal; Notable for the following components: TRACY High Sensitivity 56 (*) <12 ng/L All other components within normal limits NT PRO BNP - Normal Results for orders placed or performed during the hospital encounter of 03/16/25 ECG COMPLETE Impression SINUS RHYTHM WITH PREMATURE ATRIAL COMPLEXES OTHERWISE NORMAL ECG Confirmed by LARS REINOSO MD ([id number]) on 03/16/2025 11:34:31 AM Procedures ED Course / Clinical Impression ED Course as of 03/16/25 1506 Lars Reinoso's Documentation FriMar 16, 2025 1159 54-year-old male with history of CML on trial medication presents for elevated troponin. Has multiple labs including troponin checked every 3 months as part of being on his experimental medication. Found to have elevated troponin level and sent here. Does have similar frequent episodes of palpitations with the last episode occurring several weeks ago. Has been evaluated for this in the past and wore a Holter monitor in the past. No chest pain or shortness of breath and no symptoms at all today. Feels well. Compliant with meds. No fevers chills, cough, shortness of breath, nausea vomitingor other symptoms. Exam: Generally well-appearing in no acute distress. Heart sounds regular rate and rhythm without murmur. Lungs are clear bilaterally. Speaking in full sentences. No lower extremity edema. Bilateral 2+ radial pulses MDM: 54-year-old male presents for elevated high-sensitivity troponin obtained on outpatient lab monitoring for experimental CML drug. Hemodynamically stable, afebrile, well-appearing and asymptomatic here. Does not appear severely fluid overloaded. Labs as above. Treated as listed. On reevaluation, 1237 NT Pro BNP: 113 wnl 1237 TRACY High Sensitivity(!): 53 Elevated, down trending from 3 hours ago, repeat pending Clinical Impressions as of 03/16/25 1506 Elevated troponin CML (chronic myeloid leukemia) (HCC) Hypertrophic cardiomyopathy (HCC) MDM / Disposition / Plan Derrell Merritt JR is a 54 year old male with PMH that includes CML, HTN, GENET, psoriasisform dermatitis, DM, pancreatitis, HLD who presents upon referral from [facility] with elevated troponin on routine labs. He is asymptomatic now but indicates that he experiences chest pain several times a week when walking a long distance. He is afebrile with normal vital signs. Lungs CTA. CV: RRR, abdomen benign. EKG: Sinus rhythm, rate 67, no STEMI Troponin: 54, 53, 56 BNP 113 Reviewed CBC and CMP from earlier today: Creatinine 0.57, no significant electrolyte derangement, no leukocytosis. Presentation most consistent with elevated troponin similar to elevated troponin multiple times in the past and likely secondary to HCM. Patient has no chest pain today but does state that he experiences exertional chest pain a couple of times a week. He is presently [place] cardi[place] but would like to transfer cardiology care to [facility]. A follow-up appointmentwas requested via [employer]. History and Record Review External record(s) reviewed: prior outpatient record. Findings from review of outpatient records: follows with oncology Differential Diagnoses - Elevated troponin is more likely for the following reason(s): consistent with laboratory studies - CML is more likely for the following reason(s): suggested by H&P - Hypertrophic cardiomyopathy is more likely for the following reason(s): known issue, suggested byH&P - ACS is less likely for the following reason(s): EKG without ischemia, at bedtime troponin elevated and flat on serial repeats, no chest pain today - arrhythmia is less likely for the following reason(s): not on EKG Management Radiology Reports No orders to display Meds Given During Visit ED Medication Administration from 03/16/2025 1118 to 03/16/2025 1506 None Additional Tests or Interventions Additional tests/procedures: ECG EKG INTERPRETATION: Ordered and Reviewed Rhythm: Normal sinus rhythm (Few PACs) Rate: 67 [place]: Intervals: Normal [place] interval QRS Complex: Normal ST Segment: Normal ST-T segments QT Interval: Normal Compared with Prior: Unchanged (12/22/24) Interpretation performed by Lars Reinoso MD Re-evaluation vital signs in acceptable range Ashish Overton PA-C Disposition The patient was discharged. Yes Escalation of care including transfer to ED considered. Reason(s) for deciding against admission/observation: No CP, HS troponin elevated, flat on serial repeats, similar to multiple prior levels Counseled patient regarding lab results and suspected diagnosis. Prescriptions and Discharge Orders Discharge Orders None Follow Up Orders Status Ordering Provider FOLLOW UP APPOINTMENT REQUEST (ED/IP) Question Answer Comment Follow up appointment: Cardiology If this patient is at moderate or high risk for readmission, please identify and request the followup needed within 7 days: No Schedule follow up appointment within 1-2 weeks Reason/Diagnosis for follow up Other-Specify in comments Schedule follow up appointment with: Physician Patient eligible for virtual visit? Yes Acknowledged ASHISH OVERTON SIGNATURE: Ashish Overton PA-C Attending Note Attestation for: OSVALDO/JENNIFER I have personally performed a face to face assessment of the patient and have reviewed the DESTINY note. I personally made/approved the management plan and take responsibility for the patient management.I performed a substantive portion of the visit including all aspects of the following. My perez findings include: 54-year-old male with history of CML on trial medication presents for elevated troponin. Has multiple labs including troponin checked every 3 months as part of being on his experimental medication. Found to have elevated troponin level and sent here. Does have similar frequent episodes of palpitations with the last episode occurring several weeks ago. Has been evaluated for this in the past and wore a Holter monitor in the past. No chest pain or shortness of breath and no symptoms at all today.Denies any chest pain at all recently to me. Feels well. Compliant with meds. No fevers chills, cough, shortness of breath, nausea vomiting or other symptoms. Exam: Generally well-appearing in no acute distress. Heart sounds regular rate and rhythm without murmur. Lungs are clear bilaterally. Speaking in full sentences. No lower extremity edema. Bilateral 2+ radial pulses MDM: 54-year-old male presents for elevated high-sensitivity troponin obtained on outpatient lab monitoring for experimental CML drug. Hemodynamically stable, afebrile, well-appearing and asymptomatic here. Does not appear severely fluid overloaded. Labs as above. Treated as listed. Denies chest pain today or recently to me. On reevaluation, he remains asymptomatic. Very low suspicion for ACS at this point given troponins appear to be chronically elevated and flat trend on repeat from yesterdayand here. No indication for emergent cardiology consultation noted. Will schedule follow-up appointment with cardiology. Patient agrees with plan for discharge home. Vitals signs are stable, there islow suspicion for an acute life threatening process at this time. The patient is stable for discharge, was given return precautions and agrees with the plan. Admission considered: Yes Escalation of care including admission/observation considered. Reason(s) for deciding against admission/observation: Chest pain-free. Troponins appear chronically elevated and he is asymptomatic. Lowsuspicion for ACS at this point. Signature: Lars Reinoso MD Date: 03/16/2025 Time: 3:06 PM ASHISH OVERTON 03/16/25 1416 [1] Social History Tobacco Use Smoking status: Never Smokeless tobacco: Never Vaping Use Vaping status: Never Used Substance and Sexual Activity Alcohol use: Yes Comment: socially Drug use: No Sexual activity: Not Currently Partners: Female LARS REINOSO 03/16/25 1507 * Darrel Rothman RN - 03/16/2025 11:18 AM EDT Bed: E18- Expected date: Expected time: Means of arrival: Comments: ems documented in this encounter Plan of Treatment Upcoming Encounters Date Type Department Care Team (Latest Contact Info) Description 06/08/2025 8:30 AM EST Results Only [facility] [place] [address] [address] [place] [address] STUDY PT 06/08/2025 9:30 AM EST Visit (SP) Office Hematology/Oncology [address] [place] [address] [place] [address] [place] [address] STUDY PT 06/08/2025 9:30 AM EST Nurse Visit Hematology/Oncology [id number] [place] [id number] Paula Tuttle, RN [address] [place] [address] STUDY PT 06/08/2025 9:45 AM EST Procedure Hematology/Oncology [address] [place] [address] EKG TO RESEARCH 06/08/2025 12:30 PM EST Office Visit Vascular Medicine [address] [place] [address] echo to research 09/12/2025 7:00 AM EDT Procedure Cardiology [address] [place] [address] Elevated troponin, history HCM 09/12/2025 7:45 AM EDT Office Visit Preventive Cardiology [address] [place] [address] Collins Beckman MD [address] [place] [address] Elevated troponin, history HCM documented as of this encounter Procedures Procedure Name Priority Date/Time Associated Diagnosis Comments HIGH SENSITIVITY TROPONIN T (SECOND) STAT 03/16/2025 12:51 PM EDT HIGH SENSITIVITY TROPONIN T (INITIAL) STAT 03/16/2025 11:47 AM EDT NT PRO BNP STAT 03/16/2025 11:47 AM EDT ECG COMPLETE STAT 03/16/2025 11:29 AM EDT documented in this encounter Results * (ABNORMAL) HIGH SENSITIVITY TROPONIN T (SECOND) (03/16/2025 12:51 PM EDT) Pathologist [facility] TRACY High Sensitivity 56(H) <12 ng/L 03/16/2025 1:19 PM EDT [facility] Blood BLOOD SPECIMEN / Unknown Venipuncture / Unknown 03/16/2025 12:51 PM EDT 03/16/2025 12:54 PM EDT us Robbin C Brainard PA-C LABORATORY Final Result Performing Organization Address City/[facility]/ZIP Co de Phone Number [facility] [address] [place] [address], * NT PRO BNP (03/16/2025 11:47 AM EDT) [facility] NT Pro BNP 113 <125 pg/mL 03/16/2025 12:32 PM EDT [facility] Blood BLOOD SPECIMEN / Unknown Venipuncture / Unknown 03/16/2025 11:47 AM EDT 03/16/2025 12:07 PM EDT us Ashish Hsu Brooklynn PA-C LABORATORY Final Result [facility] [address] [place] [address], * (ABNORMAL) HIGH SENSITIVITY TROPONIN T (INITIAL) (03/16/2025 11:47 AM EDT) Pathologist [facility] TRACY High Sensitivity 53(H) <12 ng/L 03/16/2025 12:33 PM EDT [facility] Blood BLOOD SPECIMEN / Unknown Venipuncture / Unknown 03/16/2025 11:47 AM EDT 03/16/2025 12:07 PM EDT us Robbin C Brainard PA-C LABORATORY Final Result Performing Organization Address City/[facility] Co de Phone Number [facility] [address] [facility] [address] [place] [address], * ECG COMPLETE (03/16/2025 11:29 AM EDT) Ventricular Rate 67 BPM [facility] Atrial Rate 67 BPM [facility] P-R Interval 154 ms [facility] QRS Duration 96 ms [facility] QT Interval 404 ms [facility] QTC Calculation (Bazett) 426 ms [facility] Calculated P [place] 24 degrees [facility] Calculated R [place] 56 degrees [facility] Calculated T [place] 35 degrees [facility] 03/16/2025 11:2 9 AM EDT Impressions [facility] - 03/16/2025 11:34 AM EDT SINUS RHYTHM WITH PREMATURE ATRIAL COMPLEXES OTHERWISE NORMAL ECG Confirmed by LARS REINOSO MD () on 03/16/2025 11:34:31 AM Narrative [facility] - 03/16/2025 11:34 AM EDT NAME : DERRELL MERRITT PID : [id number] : 1970 Gender : Male Race : ORD : [id number] Procedure Date : Mar 16 2025 11:29:40 Edit Date : Mar 16 2025 11:34:38 Diagnosis: SINUS RHYTHM WITH PREMATURE ATRIAL COMPLEXES OTHERWISE NORMAL ECG Confirmed by LARS REINOSO MD () on 03/16/2025 11:34:31 AM Test Reason : Chest Pain Location : 2 : EDNS [id number] Overread By : LARS REINOSO MD Edited By : LARS REINOSO MD Referred By : , Acquired by : ed, us Ashish Hsu Brainard PA-C EKG Final Result Performing Organization Address City/[facility] Co de Phone Number [facility] [address] [place] [address] documented in this encounter Visit Diagnoses Diagnosis Elevated troponin- Primary Other abnormal blood chemistry CML (chronic myeloid leukemia) (HCC) Chronic myeloid leukemia, without mention of having achieved remission Hypertrophic cardiomyopathy (HCC) Other hypertrophic cardiomyopathy documented in this encounter Care Teams Supervisor Dry Paste Relationship Specialty Start Date End Date Buffy Chung, NURSE ADVOCATE [address] [place] [address] PCP - General Family Medicine 09/15/23 Paula Tuttle, RN [address] [place] [address] Research Nurse Hematology/Oncology 06/05/20 [place] [address] [place] [address] Physician Hematology/Oncology 06/05/20 documented as of this encounter
--- OUTSIDE RECORDS SUMMARY | 2025-03-18 06:05 | XMS_ITS | Encounter Summary ---
Author Organization [facility] Address [address] [place] [address] Care Team Providers Care [place] Machine Operator Name Role Phone Paula Tuttle RN Unavailable UnavailWilliam Goncalves MD, PhD Unavailable [phone] Buffy Chung CNP Primary Care Provider [phone] Source Comments In the event this information is protected by the Federal Confidentiality of Alcohol and Drug AbusePatient Records regulations: The Federal rules restrict any use of the information to criminally investigate or prosecute any alcohol or drug abuse patient.[facility] Reason for Visit * Auth/Cert (Routine) Specialty Diagnoses / Procedures Referred By Contac t Referred To Contact ADMITTING Diagnoses CML (chronic myeloid leukemia) (HCC) 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] Procedures DIAGNOSTIC BONE MARROW BIOPSIES & ASPIRATIONS DIAGNOSTIC BONE MARROW BIOPSY(IES) AND ASPIRATION(S) [facility] [address] [facility] [address] Referral ID Status Reason Start Date Expiration Date Visits Re quested Visits Authorized [id number] 1 1 Encounter Details Date Type Department Care Team (Latest Contact Info) Description 03/18/2025 6:05 AM EDT - 03/18/2025 10:47 AM EDT Hospital Encounter HOSP MAIN [id number] [address] [place] [address] Stanley Guevara MD [address] [place] [address] 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] Discharge Disposition: Home Social History Tobacco Use [...] is lower risk 9 09/09/2024 Data from: https://www.neighborhoodatlas.[facility] [place].edu/. Last address used for calculation [facility] MIGUELINA CLAROS 09/09/2024 Sex and Gender Information Value Date Recorded Sex Assigned at Not on file Legal Sex Male 10:16 AM EST Gender Identity Not on file Sexual Orientation Not on file documented as of this encounter Last Filed Vital Signs Vital Sign Reading Time Taken Comments Blood Pressure 140/73 03/18/2025 10:20 AM EDT Pulse 75 03/18/2025 10:20 AM EDT Temperature 36.4 C (97.5 F) 03/18/2025 6:27 AM EDT Respiratory Rate 17 03/18/2025 10:20 AM EDT Oxygen Saturation 95% 03/18/2025 10:20 AM EDT Inhaled Oxygen Concentration - - Weight - - Height - - Body Mass Index - - documented in this encounter Functional Status * [...] in this encounter Discharge Instructions * Discharge Instr - Other Orders* Anoop Adorno MD - 03/18/2025 9:30 AM EDT After a Biopsy in the [facility] What is a biopsy? A biopsy is a procedure where a needle is inserted into an organ, a lump, or another spot to take asmall piece of tissue for testing. A biopsy [...] the rest of the day when you gethome. Do not sign any important papers or [...] in your body. You may take acetaminophen (Tylenol??) as needed to relieve discomfort unless allergic [...] within approximately 3 to 5 business days. documented in this encounter Medications at Time [...] mg by mouth. 05/22/2023 flash glucose sensor (Lazy AngelSTYLE MIKE 2 SENSOR) kit USE DIRECTED EVERY 14 DAYS 6 Each 3 03/21/2023 lisinopril (ZESTRIL) 20 mg tablet Take 20 mg by mouth once daily. 09/09/2022 insulin glargine (LANTUS SOLOSTAR U-100 INSULIN) 100 unit/mL (3 mL) Inject 35 Units subcutaneously twice daily. 75 mL 3 10/15/2022 flash glucose scanning reader (Lazy AngelSTYLE MIKE 2 READER) Check glucose 4 times [...] tablet 10/24/2015 documented as of this encounter H&P Notes * Anoop Adorno MD - 03/18/2025 8:12 AM EDT RADIOLOGY PROCEDURAL SEDATION HISTORY AND PHYSICAL EXAM SERVICE DATE: 03/18/2025 SERVICE TIME: 8:12 AM Subjective HPI: This is a 54 year old male who presents with CML. Here for Image guided bone marrow biopsy andaspiration with moderate sedation. PROCEDURE SCHEDULED: Procedure(s): DIAGNOSTIC BONE MARROW BIOPSY(IES) AND ASPIRATION(S) (N/A) RADIOLOGY ORDER PLACED: Radiology (1440h ago, onward) Start Ordered 02/18/25 0000 IMAGING GUIDED BIOPSY BONE MARROW (HEMATOLOGY) Routine 02/18/25 1435 PAST ANESTHESIA HISTORY: No history of adverse event PAST MEDICAL HISTORY Diagnosis Date CML (chronic myelocytic leukemia) (HCC) Hypertension PAST SURGICAL HISTORY Procedure Laterality Date ANES OPEN/SURG ARTHROSCOPIC PROC KNEE JOINT NOS right knee BACK SURGERY HX L4 and L5 infusion CHOLECYSTECTOMY TONSILLECTOMY HX Prior to Admission medications as of 03/18/25 0626 Medication Sig Last Dose Taking pravastatin (PRAVACHOL) 80 mg tablet Take 1 tablet by mouth once daily. 03/18/2025 at 4:30 AM Yes blood sugar diagnostic ([employer] PRECISION PELON STRIPS) test strip Use with blood glucose test one time daily Yes insulin lispro (HUMALOG KWIKPEN) 100 unit/mL Inject 15 units with breakfast and lunch and 20 units with dinner plus sliding scale (Max daily dose of 91 units daily) 03/17/2025 at 6:00 PM Yes amLODIPine (NORVASC) 10 mg tablet Take 10 mg by mouth. 03/18/2025 at 4:30 AM Yes flash glucose sensor (Lazy AngelSTYLE MIKE 2 SENSOR) kit USE DIRECTED EVERY 14 DAYS Yes lisinopril (ZESTRIL) 20 mg tablet Take 20 mg by mouth once daily. 03/18/2025 at 4:30 AM Yes insulin glargine (LANTUS SOLOSTAR U-100 INSULIN) 100 unit/mL (3 mL) Inject 35 Units subcutaneously twice daily. 03/18/2025 Morning Yes flash glucose scanning reader (Lazy AngelSTYLE MIKE 2 READER) Check glucose 4 times daily Yes fluocinonide (LIDEX) 0.05 % ointment Apply to affected areas of rash twice daily x 2 weeks, then once daily x 2 weeks. NOT for face, armpits, or groin Yes Insulin Syringe-Needle U-100 1 mL 25 x 1 syrg Use 1 syringe once daily to administer peg-interferon dose. Yes ibuprofen (MOTRIN) 800 mg tablet Yes empagliflozin (JARDIANCE) 25 mg tablet Take 1 tablet by mouth daily with breakfast. ALLERGIES Allergen Reactions Opioids - Morphine * Vomiting, GI Upset Objective PHYSICAL EXAM: The remainder of the physical exam is noncontributory. AIRWAY: Mouth opening greater than 3 fingerbreadths: Yes Neck Full Range of Motion: Yes LUNGS: Lungs clear to auscultation, Good diaphragmatic excursion CARDIAC: Normal S1 and S2; no rubs, murmurs, or gallops Assessment/Plan Image guided bone marrow biopsy and aspiration with moderate sedation. Exogenous Class 2 Obesity ASA Class: ASA Class: Patient with mild systemic disease Provisional Diagnosis/Treatment Plan: Image guided bone marrow biopsy and aspiration with moderate sedation. Sedation Goal: Moderate SIGNATURE: Anoop Adorno MD PATIENT NAME: Zachary Avitia JR DATE: March 18, 2025 TIME: 8:12 AM Cosigned by Shaggy Kaur MD at 03/18/2025 8:16 AM EDT Associated attestation - Shaggy Kaur MD - 03/18/2025 8:16 AM EDT Agree with fellow physician's documentation/plan. DKS documented in this encounter Nursing Notes * Emily Bailey RN - 03/18/2025 10:47 AM EDT Completed post procedure phone call. Zachary is feeling well and has returned to his baseline diet and activity. Zachary denies questions or concerns related to his bone marrow biopsy appointment on 03/18/25 and had no surgical site concerns. * Emily Anthony LPN - 03/11/2025 12:35 PM EDT Pre- e instructions: Contacted patient and confirmed appt. for bone marrow biopsy scheduled on 03/18/25, at [facility]. Diet: Do not eat solid food after midnight the night before your procedure. You may have water until 6:30am Medications: IF ok with your Prescribing Provider: RADIOLOGY RECOMMENDS THESE MEDICATION RESTRICTIONS : Glipizide , Humalog , Lantus Hold Glipizide oral hypoglycemic the day of this procedure Hold short acting insulin the day of procedure. Long acting insulin, take ?? dose. Arrival: There is Acds Block 1 Operator Parking available at the Main Entrance: [address] Please bring your Photo ID and Insurance Card. A general consent may need to be signed. Arrival at 7:00am to desk QB-[id number] ([facility]) and check in for your procedure. Radio Division Captain/Transportation: You will need a responsible adult to accompany you to and from the procedure. Recovery expectations: You can expect to be at the hospital for the majority of the day. Please do not schedule any other appointments the day of your procedure. Written instructions provided to patient via [facility] If you have any questions please call [phone] documented in this encounter OR Notes * Brief Op Note - Anoop Adorno MD - 03/18/2025 9:29 AM EDT BRIEF OPERATIVE / PROCEDURE NOTE LOG ID: [id number] SURGERY/PROCEDURE DATE: 03/18/2025 INCISION/PROCEDURE START TIME: 9:06 AM INCISION CLOSE/PROCEDURE END TIME: SURGEON(S)/PROCEDURALIST(S) AND SAFETY INSPECTOR(S): Surgeons and Role: * Shaggy Kaur MD - Primary * Anoop Adorno MD - Fellow No Additional Staff SURGERY/PROCEDURE(S): CT guided bone marrow biopsy with moderate sedation. ANESTHESIA: Procedural Sedation FINDINGS: Image guided bone marrow biopsy and aspiration with moderate sedation. - Complete dictation to follow under the Imaging tab in Epic ESTIMATED BLOOD LOSS: minimal SPECIMENS: 9 cc aspirate. 1.7 cm core biopsy. COMPLICATIONS: None PRE-OP/PRE-PROCEDURE DIAGNOSIS: CML POST-OP/POST-PROCEDURE DIAGNOSIS: Same SIGNATURE: Anoop Adorno MD PATIENT NAME: Zachary Avitia JR DATE: March 18, 2025 TIME: 9:29 AM PAGER/CONTACT #: [phone] Radiology air traffic control specialist Pager #[phone] (use M-F after 5pm and Weekends) documented in this encounter Miscellaneous Notes * Patient Education - Jacklyn Michael RN - 03/18/2025 8:30 AM EDT AMBULATORY PATIENT EDUCATION TOPIC: HEALTH PROMOTION: Follow up management READINESS TO LEARN COGNITIVE ABILITY: Alert and oriented MOTIVATION TO LEARN: Interested FAMILY SUPPORT: Unable to assess - Family not present INSTRUCTION PROVIDED TO: Patient PATIENT LEARNS BEST BY: Individual Instruction FACTORS AFFECTING LEARNING: None PHYSICAL LIMITATIONS AFFECTING LEARNING: None LEARNING RESPONSE DIAGNOSIS: bone marrow biopsy METHOD OF INSTRUCTION: Individual instruction PATIENT / FAMILY RESPONSE: Verbalizes understanding of: POST-PROCEDURE INSTRUCTIONS-Correct actionsto take to reduce post procedure complications FOLLOW-UP PLAN: Follow up phone call. SUPPLEMENTAL MATERIAL: None REFERRAL (RECOMMENDATION): None Electronically Signed By Jacklyn Michael RN In Department: HOSP MAIN [id number] documented in this encounter Plan of Treatment Upcoming Encounters Date Type Department Care Team (Latest Contact Info) Description 06/08/2025 8:30 AM EST Results Only [facility] [address] [address] [place] [address] STUDY PT 06/08/2025 9:30 AM EST Visit (SP) Office Hematology/Oncology [address] [place] [phone] William Cavazos MD, PhD [id number] [place] [id number] STUDY PT 06/08/2025 9:30 AM EST Nurse Visit Hematology/Oncology [address] [place] [id number] Paula Tuttle, RN [address] [place] [address] STUDY PT 06/08/2025 9:45 AM EST Procedure Hematology/Oncology [address] [place] [address] EKG TO RESEARCH 06/08/2025 12:30 PM EST Office Visit Vascular Medicine [address] [place] [id number] echo to research 09/12/2025 7:00 AM EDT Procedure Cardiology [address] [place] [address] Elevated troponin, history HCM 09/12/2025 7:45 AM EDT Office Visit Preventive Cardiology [address] [place] [address] Collins Beckman MD [address] [place] [address] Elevated troponin, history HCM Pending Results Name Type Priority Associated Diagnoses Date /Time BONE MARROW ANALYSIS Lab Routine 03/09 9:18 AM EDT BONE MARROW CHROMOSOME ANAL Lab Routine 03/18/2025 9:18 AM EDT DNA EXTRACTION BONE MARROW (BUFFY COAT) Lab Routine 03/18/2025 9:18 AM EDT FLOW CYTOMETRY FOR LEUKEMIA/LYMPHOMA (FCLL) REFLEX Lab Routine 03/18/2025 9:18 AM EDT Scheduled Orders Name Type Priority Associated Diagnoses Orde r Schedule BONE MARROW ANALYSIS Lab Routine ONCE for 1 Occurrences starting 03/18/2025 until 03/18/2025, 1 completed BONE MARROW CHROMOSOME ANAL Lab Routine ONCE for 1 Occur rences starting 03/18/2025 until 03/18/2025 DNA EXTRACTION BONE MARROW (BUFFY COAT) Lab Routine ONCE for 1 O ccurrences starting 03/18/2025 until 03/18/2025 FLOW CYTOMETRY FOR LEUKEMIA/LYMPHOMA (FCLL) REFLEX Lab Routine ONCE for 1 Occur rences starting 03/18/2025 until 03/18/2025, 1 completed documented as of this encounter Procedures Procedure Name Priority Date/Time Associated Diagnosis Comments FLOW CYTOMETRY FOR LEUKEMIA/LYMPHOMA (FCLL) PERFORMABLE Routine 03/18/2025 9:18 AM EDT FLOW CYTOMETRY FOR LEUKEMIA/LYMPHOMA (FCLL) Routine 03/18/2025 9:18 AM EDT DIAGNOSTIC BONE MARROW BIOPSIES & ASPIRATIONS 03/18/2025 8:23 AM EDT CML (chronic myeloid leukemia) (HCC) GLUCOSE, BLOOD (POC) Routine 03/18/2025 6:37 AM EDT documented in this encounter Results * FLOW CYTOMETRY FOR LEUKEMIA/LYMPHOMA (FCLL) PERFORMABLE (03/18/2025 9:18 AM EDT) [facility] Flow Cytometry Order Status Results will be reported under F case ID when completed 03/18/2025 11:57 AM EDT [facility] Bone Marrow BONE MARROW SPECIMEN / Unknown 03/18/2025 9:18 AM EDT 03/18/2025 9:58 AM EDT Shaggy Kaur MD LABORATORY Final Result Performing Organization Address City/[facility]/ZIP Co de Phone Number [facility] [address] [place] [address] [address] [place] [address], [place] * (ABNORMAL) GLUCOSE, BLOOD (POC) (03/18/2025 6:37 AM EDT) [facility] Glucose, Point of Care 213(A) 74 - 99 mg/dL [facility] Comment: Location:[facility], [address] [place] [address], [place], [place], [facility] The Accu-Chek Inform II glucose meter has [...] blood gas instrument) in the above situations. 03/18/2025 6:37 AM EDT [facility] Provider POC TESTING Final Result Performing Organization Address [facility]/ZIP Co de Phone Number [facility] POINT OF CARE [address] documented in this encounter Visit Diagnoses Not on filedocumented in this encounter Active and Recently Administered Medications Times are shown in EDT. PRN Medication Order 03/16/2025 03/17/2025 03/18/2025 fentaNYL 50 mcg/mL injection (SUBLIMAZE) (CANCELED) INTRAVENOUS, X (OR/PROCEDURE) PRN, Starting on Fri03/18/25 at 0906, Until Fri03/18/25 at 0934, Intraprocedure 0854 (Given - Provid er: Jacklyn Michael RN)09 (Given - Provider: Jacklyn Michael RN) lidocaine (PF) 20 mg/mL (2 %) injection (XYLOCAINE) (CANCELED) SUBCUTANEOUS, X (OR/PROCEDURE) PRN, Starting on Fri03/18/25 at 0906, Until Fri03/18/25 at 0934, Intraprocedure 09 (Given - Provid er: Anoop Adorno MD) midazolam (PF) injection (VERSED) (CANCELED) INTRAVENOUS, X (OR/PROCEDURE) PRN, Starting on Fri03/18/25 at 0906, Until Fri03/18/25 at 0934, Intraprocedure 0854 (Given - Provid er: Jacklyn Michael RN)905 (Given - Provider: Jacklyn Michael RN) documented in this encounter Care Teams Ban[place] Machine Operator Relationship Specialty Start Date End Date Buffy Chung RASCHEL KNITTING MACHINE OPERATOR [address] [place] [address] PCP - General Family Medicine 09/15/23 Paula Tuttle, MOISÉS [address] [place] [address] Research Nurse Hematology/Oncology 06/05/20 [place] [address] [place] [address] Physician Hematology/Oncology 06/05/20 documented as of this encounter
--- OUTSIDE RECORDS SUMMARY | 2025-03-18 08:25 | XMS_ITS | Encounter Summary ---
Author Organization [facility] Address [facility] [place] [address] Care Team Providers Care General Counsel Name Role Phone Paula Tuttle RN Unavailable UnavailWilliam Goncalves MD, PhD Unavailable [phone] Buffy Chung CNP Primary Care Provider [phone] Source Comments In the event this information is protected by the Federal Confidentiality of Alcohol and Drug AbusePatient Records regulations: The Federal rules restrict any use of the information to criminally investigate or prosecute any alcohol or drug abuse patient.[facility] Reason for Visit * Auth/Cert (Routine) Specialty Diagnoses / Procedures Referred By Contac t Referred To Contact ADMITTING Diagnoses CML (chronic myeloid leukemia) (HCC) 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] Procedures DIAGNOSTIC BONE MARROW BIOPSIES & ASPIRATIONS DIAGNOSTIC BONE MARROW BIOPSY(IES) AND ASPIRATION(S) Angio [address] [place] [address] Referral ID Status Reason Start Date Expiration Date Visits Re quested Visits Authorized [id number] 1 1 Encounter Details Date Type Department Care Team (Late st Contact Info) Description 03/18/2025 8:25 AM EDT - 03/18/2025 9:29 AM EDT Surgery Angio [address] [id number] Shaggy Kaur MD [address] [facility] [address] [place] [address] DIAGNOSTIC BONE MARROW BIOPSY(IES) AND ASPIRATION(S) Surgery Details Date/Time Status Location OR Service Patient Class Case Cl ass Case Type Trauma Case? 03/18/2025 8:25 AM Posted ANGIO HB6 [id number] Radiology Ambulatory Surgery Elective Panel 1 Procedure LRB Anes Op Region Wound Class Comments DIAGNOSTIC BONE MARROW BIOPSY(IES) AND ASPIRATION(S) N/A Procedural Sedation Surgeon Surgeon Role Service Panel Shaggy Kaur MD Primary Radiology 1 Anoop Adorno MD Fellow 1 documented in this encounter Social History Tobacco Use Types Packs/Day [...] is lower risk 9 09/09/2024 Data from: https://www.neighborhoodatlas.medicine.[facility].edu/. [facility] [address] 09/09/[facility]24 Sex and Gender Information Value Date Recorded Sex Assigned at Not on file Legal Sex Male 10:16 AM EST Gender Identity Not on file Sexual Orientation Not on file documented as of this encounter Last Filed Vital Signs Vital Sign Reading Time Taken Comments Blood Pressure 130/71 03/18/2025 9:25 AM EDT Pulse 63 03/18/2025 9:25 AM EDT Temperature 36.4 C (97.5 F) 03/18/2025 6:27 AM EDT Respiratory Rate 16 03/18/2025 6:27 AM EDT Oxygen Saturation 99% 03/18/2025 9:25 AM EDT Inhaled Oxygen Concentration - - [...] EDT After a Biopsy in the Imaging [place] What is a biopsy? A biopsy is [...] mouth once daily. 08/29/2023 blood sugar diagnostic (DaWandaYLE PRECISION PELON STRIPS) test strip Use with blood glucose test one time daily 100 Strip 3 08/29/2023 insulin lispro (HUMALOG KWIKPEN) 100 unit/mL Inject 15 units with breakfast and lunch and 20 units with dinner plus sliding scale (Max daily dose of 91 units daily) 90 mL 3 06/17/2023 amLODIPine (NORVASC) 10 mg tablet Take 10 mg by mouth. 05/22/2023 flash glucose sensor (zSoupSTYLE MIKE 2 SENSOR) kit USE DIRECTED EVERY 14 DAYS 6 Each 3 03/21/2023 lisinopril (ZESTRIL) 20 mg tablet Take 20 mg by mouth once daily. 09/09/2022 insulin glargine (LANTUS SOLOSTAR U-100 INSULIN) 100 unit/mL (3 mL) Inject 35 Units subcutaneously twice daily. 75 mL 3 10/15/2022 flash glucose scanning reader (zSoupSTYLE MIKE 2 READER) Check glucose 4 times [...] at 4:30 AM Yes blood sugar diagnostic (FREESTYLE PRECISION PELON STRIPS) [...] at 4:30 AM Yes flash glucose sensor (FREESTYLE MIKE 2 SENSOR) kit USE DIRECTED EVERY 14 DAYS Yes lisinopril (ZESTRIL) 20 mg tablet Take 20 mg by mouth once daily. 03/18/2025 at 4:30 AM Yes insulin glargine (LANTUS SOLOSTAR U-100 INSULIN) 100 unit/mL (3 mL) Inject 35 Units subcutaneously twice daily. 03/18/2025 Morning Yes flash glucose scanning reader (FREESTYLE MIKE 2 [...] bone marrow biopsy scheduled on 03/18/25, at [facility]. Diet: Do not eat solid food [...] insulin, take ?? dose. Arrival: There is [employer] Parking available at the Main Entrance: [address] Please bring your Photo ID and Insurance Card. A general consent may need to be signed. Arrival at 7:00am to desk QB-1 ([facility]) and check in for your procedure. Echometer Engineer/Transportation: You will need a responsible adult to accompany you to and from the procedure. Recovery expectations: You can expect to be at the hospital for the majority of the day. Please do not schedule any other appointments the day of your procedure. Written instructions provided to patient via [employer] If you have any questions please call [phone] documented in this encounter OR Notes * Brief Op Note - Anoop Adorno MD - 03/18/2025 9:29 AM EDT BRIEF OPERATIVE / PROCEDURE NOTE LOG ID: [id number] SURGERY/PROCEDURE DATE: 03/18/2025 INCISION/PROCEDURE START TIME: 9:06 AM INCISION CLOSE/PROCEDURE END TIME: SURGEON(S)/PROCEDURALIST(S) AND CRUST SORTER(S): Surgeons and Role: * Shaggy Kaur MD [...] 18, 2025 TIME: 9:29 AM PAGER/CONTACT #: [phone] Radiology transmission line engineer Pager #[phone] (use M-F after 5pm and Weekends) documented [...] 06/08/2025 8:30 AM EST Results Only Main [facility] [address] [address] [place] [address] STUDY PT 06/08/2025 9:30 AM EST Visit (SP) Office Hematology/Oncology [address] [place] [address] [place] [address] [place] [address] STUDY PT 06/08/2025 9:30 AM EST Nurse Visit Hematology/Oncology [address] [place] [address] Paula Tuttle, RN [address]00 [place] [address] STUDY PT 06/08/2025 9:45 AM EST Procedure Hematology/Oncology [address] [place] [address] EKG TO RESEARCH 06/08/2025 12:30 PM EST Office Visit Vascular Medicine [address] [place] [address] echo to research 09/12/2025 7:00 AM EDT Procedure Cardiology [address] [place] [address] Elevated troponin, history HCM 09/12/2025 7:45 AM EDT Office Visit Preventive Cardiology [address] [place] [address] Collins Beckman MD [address] [place] [address] Elevated troponin, history HCM Pending Results Name [...] LEUKEMIA/LYMPHOMA (FCLL) PERFORMABLE (03/18/2025 9:18 AM EDT) [facility] Flow Cytometry Order Status Results will be reported under F case ID when completed 03/18/2025 11:57 AM EDT [facility] Bone Marrow BONE MARROW SPECIMEN / Unknown 03/18/2025 9:18 AM EDT 03/18/2025 9:58 AM EDT Shaggy Kaur MD LABORATORY Final Result Performing Organization Address [facility] Co de Phone Number [facility] [address] [place] [address], * (ABNORMAL) GLUCOSE, BLOOD (POC) (03/18/2025 6:37 AM EDT) [facility] Glucose, Point of Care 213(A) 74 - 99 mg/dL [facility] Comment: Location:[facility], [address] [place] [address], [facility] The Accu-Chek Inform II glucose meter has [...] the above situations. 03/18/2025 6:37 AM EDT Cc Provider POC TESTING Final Result Performing Organization Address [facility]/ZIP Co de Phone Number [facility] POINT OF CARE [address] documented in this encounter Visit Diagnoses Diagnosis CML (chronic myeloid leukemia) (HCC) Chronic myeloid leukemia, without mention of having achieved remission documented in this encounter Administered Medications Inactive Administered Medications - up to 3 most recent administrations Medication Order MAR Action Action Date Dose Rate Site fentaNYL 50 mcg/mL injection (SUBLIMAZE) INTRAVENOUS, X (OR/PROCEDURE) PRN, Starting on Fri03/18/25 at 0906, Until Fri03/18/25 at 0934, Intraprocedure Given 03/18/2025 9:06 AM EDT 50 mcg Given 03/18/2025 8:54 AM EDT 50 mcg lidocaine (PF) 20 mg/mL (2 %) injection (XYLOCAINE) SUBCUTANEOUS, X (OR/PROCEDURE) PRN, Starting on Fri03/18/25 at 0906, Until Fri03/18/25 at 0934, Intraprocedure Given 03/18/2025 9:06 AM EDT 10 mL Shyam k, Right midazolam (PF) injection (VERSED) INTRAVENOUS, X (OR/PROCEDURE) PRN, Starting on Fri03/18/25 at 0906, Until Fri03/18/25 at 0934, Intraprocedure Given 03/18/2025 9:06 AM EDT 1 mg Given 03/18/2025 8:54 AM EDT 1 mg documented in this encounter Active and Recently Administered [...] at 0906, Until Fri03/18/25 at 0934, Intraprocedure 0906 (Given - Provid er: Anoop Adorno MD) midazolam (PF) injection (VERSED) (CANCELED) INTRAVENOUS, X (OR/PROCEDURE) PRN, Starting on Fri03/18/25 at 0906, Until Fri03/18/25 at 0934, Intraprocedure 0854 (Given - Provid er: Jacklyn Michael, MOISÉS)0906 (Given - Provider: Jacklyn Michael, MOISÉS) documented in this encounter Care Teams General Counsel Relationship Specialty Start Date End Date Buffy Chung, SHOT COAT TENDER [address] [place] [address] PCP - General Family Medicine 09/15/23 Paula Tuttle, MOISÉS [address] [place] [address] Research Nurse Hematology/Oncology 06/05/20 [place] [address] [place] [address] Physician Hematology/Oncology 06/05/20 documented as of this encounter
[2025-03-21] VITALS (10 sets, daily range): BP systolic 149–178; BP diastolic 78–96; PULSE 65–91; TEMP 36.6; O2SAT 94–97; BMI 37.3
--- OUTSIDE RECORDS SUMMARY | 2025-03-21 11:46 | XMS_ITS | Clinical Summary ---
Author Organization [facility] Address [address] [place] [address] Care Team Providers Care Nuclear Licensing Engineer Name Role Phone Unavailable Primary Care Provider [...] patient's age to complete this topic Insurance [facility] [place]ID [facility] [place] [id number]
--- OUTSIDE RECORDS SUMMARY | 2025-03-21 11:46 | XMS_ITS | Encounter Summary ---
Author Organization [facility] Address [address] [place] [address] Care Team Providers Care Admission Specialist Name Role Phone Aman Mathias MD Primary Care Provider [phone] Buffy Chung NP Unavailable [phone] Unallocated, Noms Provider Primary Care Provi hal Aman Mathias MD Primary Care Provider [phone] Encounter Details Date Type Department Care Team (Late st Contact Info) Description 09/12/2023 Orders Only [facility] [address] [facility] [address] [place] [address] Roman Iyer MD [address] [place] [id number] Social History Tobacco Use Types Packs/Day Years [...] Description 07/25/2025 8:15 AM EST Office Visit [facility] [address] [place] [address] Yaniv Thompson, SUPERVISOR [employer] [address] [place] [address] documented as of this encounter Procedures Procedure [...] on filedocumented in this encounter Care Teams Admission Specialist Relationship Specialty Start Date End Date Aman Mathias MD PCP - General Family Medicine 08/07/23 03/30/24 Unallocated, Noms Provider, [facility] [place] [address] PCP - General Family Medicine 03/31/24 04/07/24 Aman Mathias MD PCP - General Family Medicine 04/08/24 Buffy Chung NP Nurse Practitioner Family Medicine 08/07/23 documented as of this encounter
--- OUTSIDE RECORDS SUMMARY | 2025-03-21 11:46 | XMS_ITS | Encounter Summary ---
Author Organization [facility] Address [address] [place] [address] Care Team Providers Care Clearing Inspector Name Role Phone William Cavazos MD, PhD Unavailable [phone] Karl Gonzalez DO Primary Care Provider Paula Tuttle RN Unavailable UnavailIsrael Armstrong RN Unavailable Unavailable Aman Mathias MD Primary Care Provider [phone] Paula Tuttle RN Unavailable UnavailWilliam Goncalves MD, PhD Unavailable [phone] Aman Mathias MD Primary Care Provider [phone] Buffy Chung CNP Primary Care Provider [phone] Source Comments In the event this information is protected by the Federal Confidentiality of Alcohol and Drug AbusePatient Records regulations: The Federal rules restrict any use of the information to criminally investigate or prosecute any alcohol or drug abuse patient.[facility] Encounter Details Date Type Department Care Team (Late st Contact Info) Description 04/30/2019 Patient Msg Angio [address] [place] [address] Provider, Ccf Pre procedure instructions Social History [...] 06/08/2025 8:30 AM EST Results Only Main [place] [address] [address] [place] [address] STUDY PT 06/08/2025 9:30 AM EST Visit (SP) Office Hematology/Oncology [address] [place] [address] [place] [address] [place] [address] STUDY PT 06/08/2025 9:30 AM EST Nurse Visit Hematology/Oncology [address] [place] [address] Paula Tuttle RN [address]00 [place] [address] STUDY PT 06/08/2025 9:45 AM EST Procedure Hematology/Oncology [address] [place] [address] EKG TO RESEARCH 06/08/2025 12:30 PM EST Office Visit Vascular Medicine [address] [id number] echo to research 09/12/2025 7:00 AM EDT Procedure Cardiology [address] [place] [address] Elevated troponin, history HCM 09/12/2025 7:45 AM EDT Office Visit Preventive Cardiology [address] [id number] Collins Beckman MD [address] [phone] Elevated troponin, history HCM documented as of this encounter Visit Diagnoses Not on filedocumented in this encounter Care Teams Clearing Inspector Relationship Specialty Start Date End Date Carlos Karl DO Shar [address] [place] [address] PCP - General Family Medicine 03/12/16 04/30/20 Aman Mathias MD [address] [place] [address] PCP - General Family Medicine 05/01/20 09/02/21 Aman Mathias MD [address] [place] [address] PCP - General Family Medicine 09/03/21 09/14/23 Buffy Chung, HUMAN RESOURCES DEPARTMENT SUPERVISOR [address] [place] [address] PCP - General Family Medicine 09/15/23 William Cavazos MD, PhD [address]00 [place] [address] Physician Hematology/Oncology 11/29/14 04/30/20 Paula Tuttle, RN [address] [place] [address] Research Nurse Hematology/Oncology 05/19/17 01/31/20 Israel Hanson RN Specialty Combined Rail Operator Hematology/Oncology 03/10/20 04/30/20 Paula Tuttle, MOISÉS [address] [place] [address] Research Nurse Hematology/Oncology 06/05/20 [place] [address] [place] [address] Physician Hematology/Oncology 06/05/20 documented as of this encounter
--- OUTSIDE RECORDS SUMMARY | 2025-03-21 11:46 | XMS_ITS | Encounter Summary ---
Author Organization [facility] Address [address] [facility] [place] [address] Care Team Providers Care Resident Care Coordinator Name Role Phone Aman Mathias MD Primary Care Provider [phone] Aman Matihas MD Primary Care Provider [phone] Buffy Chung STOCKBROKER Unavailable [phone] Unallocated, Noms Provider Primary Care Provi hal Aman Mathias MD Primary Care Provider [phone] Encounter Details Date Type Department Care Team [...] Description 07/25/2025 8:15 AM EST [facility] [address] [place] [address] Yaniv Thompson NP [address] [place] [address] documented as of this encounter [...] QTC Calculation(Bazett) : 409 ms Calculated P [place] : 17 degrees Calculated R [place] : 33 degrees Calculated T [place] : 15 degrees NORMAL SINUS RHYTHM NORMAL ECG Confirmed by ZACHARY SAMS MD ([id number]) on 07/25/2023 3:10:52 PM NAME : ZACHARY MERRITT PID : [id number] : 1970 Gender : Male Race : [...] : jayne coppola, Procedure Note Radiology, Radiologist, MD - 07/25/2023 Ventricular Rate : 73 BPM Atrial Rate : 73 BPM P-R Interval : 150 ms QRS Duration : 92 ms Q-T Interval : 372 ms QTC Calculation(Bazett) : 409 ms Calculated P [place] : 17 degrees Calculated R [place] : 33 degrees Calculated T [place] : 15 degrees NORMAL SINUS RHYTHM NORMAL ECG Confirmed by ZACHARY SAMS MD ([id number]) on 07/25/2023 3:10:52 PM NAME : ZACHARY MERRITT PID : [id number] : 1970 Gender : Male Race : [...] on filedocumented in this encounter Care Teams Resident Care Coordinator Relationship Specialty Start Date End Date Aman Mathias MD PCP - General Family Medicine 11/27/22 08/06/23 Aman Mathias MD PCP - General Family Medicine 08/07/23 03/30/24 Unallocated, Noms Provider, [address] [place] [address] PCP - General Family Medicine 03/31/24 04/07/24 Aman Mathias MD PCP - General Family Medicine 04/08/24 Buffy Chung NP Nurse Practitioner Family Medicine 08/07/23 documented as of this encounter
--- OUTSIDE RECORDS SUMMARY | 2025-03-21 11:46 | XMS_ITS | Encounter Summary ---
Author Organization [facility] Address [facility] [place] [address] Care Team Providers Care Multiple Spindle Screw Machine Operator Name Role Phone Paula Tuttle RN Unavailable UnavailWilliam Goncalves MD, PhD Unavailable [phone] Aman Mathias MD Primary Care Provider [phone] Buffy Chung CNP Primary Care Provider [phone] Source Comments In the event this information is protected by the Federal Confidentiality of Alcohol and Drug AbusePatient Records regulations: The Federal rules restrict any use of the information to criminally investigate or prosecute any alcohol or drug abuse patient.[facility] Encounter Details Date Type Department Care Team (Late st Contact Info) Description 05/09/2022 Patient Msg Angio [address] [place] [address] Provider, Ccf Instructions for bone marrow biopsy [...] N ot on file 11/26/2021 Data from: https://www.neighborhoodatlas.medicine.[facility]/. Last address used for calculation [...] 06/08/2025 8:30 AM EST Results Only Main [place] [address] [address] [place] [address] STUDY PT 06/08/2025 9:30 AM EST Visit (SP) Office Hematology/Oncology [address] [place] [address] [place] [address] [place] [address] STUDY PT 06/08/2025 9:30 AM EST Nurse Visit Hematology/Oncology [address] [place] [address] Paula Tuttle RN [address] [place] [address] STUDY PT 06/08/2025 9:45 AM EST Procedure Hematology/Oncology [address] [place] [address] EKG TO RESEARCH 06/08/2025 12:30 PM EST Office Visit Vascular Medicine [address] [place] [address] echo to research 09/12/2025 7:00 AM EDT Procedure Cardiology [address] [place] [address] Elevated troponin, history HCM 09/12/2025 7:45 AM EDT Office Visit Preventive Cardiology [address] [place] [address] Collins Beckman MD [address] [place] [address] Elevated troponin, history HCM documented as of this encounter Visit Diagnoses Not on filedocumented in this encounter Care Teams Multiple Spindle Screw Machine Operator Relationship Specialty Start Date End Date Aman Mathias MD [address] [place] [address] PCP - General Family Medicine 09/03/21 09/14/23 Buffy Chung, LOCKER PLANT ATTENDANT [address] [place] [address] PCP - General Family Medicine 09/15/23 Paula Tuttle, RN [address] [place] [address] Research Nurse Hematology/Oncology 06/05/20 [place] [address] [place] [address] Physician Hematology/Oncology 06/05/20 documented as of this encounter
--- OUTSIDE RECORDS SUMMARY | 2025-03-21 11:46 | XMS_ITS | Encounter Summary ---
Author Organization [facility] Address [facility] [place] [address] Care Team Providers Care Inker Name Role Phone Aman Mathias MD Primary Care Provider [phone] Paula Tuttle RN Unavailable [facility] William Clemons MD, PhD Unavailable [phone] Aman Mathias MD Primary Care Provider [phone] Buffy Chung CNP Primary Care Provider [phone] Source Comments In the event this information is protected by the Federal Confidentiality of Alcohol and Drug AbusePatient Records regulations: The Federal rules restrict any use of the information to criminally investigate or prosecute any alcohol or drug abuse patient.[facility] Encounter Details Date Type Department Care Team (Late st Contact Info) Description 06/07/2021 Patient Msg Angio [address] [place] [address] Provider, Ccf Pre procedure instructions 06/15 Social [...] N ot on file 05/15/2020 Data from: https://www.neighborhoodatlas.medicine.[facility]/. Last address used for calculation Not [...] 06/08/2025 8:30 AM EST Results Only Main [place] [address] [address] [place] [address] STUDY PT 06/08/2025 9:30 AM EST Visit (SP) Office Hematology/Oncology [address] [place] [address] [place] [address] [place] [address] STUDY PT 06/08/2025 9:30 AM EST Nurse Visit Hematology/Oncology [address] [place] [address] Paula Tuttle RN [address] [place] [address] STUDY PT 06/08/2025 9:45 AM EST Procedure Hematology/Oncology [address] [place] [address] EKG TO RESEARCH 06/08/2025 12:30 PM EST Office Visit Vascular Medicine [address] [place] [address] echo to research 09/12/2025 7:00 AM EDT Procedure Cardiology [address] [place] [address] Elevated troponin, history HCM 09/12/2025 7:45 AM EDT Office Visit Preventive Cardiology [address] [place] [address] Collins Beckman MD [address] [place] [phone] Elevated troponin, history HCM documented as of this encounter Visit Diagnoses Not on filedocumented in this encounter Care Teams Inker Relationship Specialty Start Date End Date Aman Mathias MD [address] [place] [address] PCP - General Family Medicine 05/01/20 09/02/21 Aman Mathias MD [address] [place] [address] PCP - General Family Medicine 09/03/21 09/14/23 Buffy Chung, CHARACTER ACTOR [address] [place] [address] PCP - General Family Medicine 09/15/23 Paula Tuttle, RN [address] [place] [address] Research Nurse Hematology/Oncology 06/05/20 [place] [address] [place] [address] Physician Hematology/Oncology 06/05/20 documented as of this encounter
--- OUTSIDE RECORDS SUMMARY | 2025-03-21 11:46 | XMS_ITS | Encounter Summary ---
Author Organization [facility] Address [address] [place] [address] Care Team Providers Care Software Sales Manager Name Role Phone Paula Tuttle RN Unavailable UnavailWilliam Goncalves MD, PhD Unavailable [phone] Aman Mathias MD Primary Care Provider [phone] Buffy Chung CNP Primary Care Provider [phone] Source Comments In the event this information is protected by the Federal Confidentiality of Alcohol and Drug AbusePatient Records regulations: The Federal rules restrict any use of the information to criminally investigate or prosecute any alcohol or drug abuse patient.[facility] Encounter Details Date Type Department Care Team (Late st Contact Info) Description 07/01/2023 Patient Msg Cardiology [address] [place] [address] Tyron Torres MD [address] [place] [address] Appointment Cancellation Request Social History [...] is lower risk 7 10/15/2022 Data from: https://www.neighborhoodatlas.medicine.[facility]/. Last address used for calculation [address] [...] 06/08/2025 8:30 AM EST Results Only Main [place] [id number] [place] [address] STUDY PT 06/08/2025 9:30 AM EST Visit (SP) Office Hematology/Oncology [address] [place] [address] [place] [address] [place] [address] STUDY PT 06/08/2025 9:30 AM EST Nurse Visit Hematology/Oncology [address] [place] [address] Paula Tuttle, MOISÉS [address] [place] [address] STUDY PT 06/08/2025 9:45 AM EST Procedure Hematology/Oncology [address] [place] [address] EKG TO RESEARCH 06/08/2025 12:30 PM EST Office Visit Vascular Medicine [address] [place] [address] echo to research 09/12/2025 7:00 AM EDT Procedure Cardiology [address] [place] [address] Elevated troponin, history HCM 09/12/2025 7:45 AM EDT Office Visit Preventive Cardiology [address] [place] [address] Collins Beckman MD [address] [place] [address] Elevated troponin, history HCM documented as of this encounter Visit Diagnoses Not on filedocumented in this encounter Care Teams Software Sales Manager Relationship Specialty Start Date End Date Aman Mathias MD [address] [place] [address] PCP - General Family Medicine 09/03/21 09/14/23 Buffy Chung, NETWORK SYSTEMS CONSULTANT [address] [place] [address] PCP - General Family Medicine 09/15/23 Paula Tuttle, RN [address] [place] [address] Research Nurse Hematology/Oncology 06/05/20 [place] [address] [place] [address] Physician Hematology/Oncology 06/05/20 documented as of this encounter
--- OUTSIDE RECORDS SUMMARY | 2025-03-21 11:46 | XMS_ITS | Encounter Summary ---
Author Organization [facility] Address [address] [place] [address] Care Team Providers Care Transmission Supervisor Name Role Phone Aman Mathias MD Primary Care Provider [phone] Buffy Chung LEATHER CARVER Unavailable [phone] Unallocated, Noms Provider Primary Care Provi hal Aman Mathias MD Primary Care Provider [phone] Encounter Details Date Type Department Care Team (Late st Contact Info) Description 10/14/2023 Orders Only [facility] [address] [place] [address] Buffy Chung, YANE [address] [place] [address] Social History Tobacco Use Types Packs/Day Years [...] 10:44 AM EDT Ginger Stevenson MA * How difficult have these problems made it for you to do your work, take care of things at home, or get along with other people? Answer Date of Assessment Author Not difficult at all 10/14/2023 10:44 AM EDT Kisha Tiwari MA documented as of this encounter Plan of Treatment Upcoming Encounters Date Type Department Care Team (Late st Contact Info) Description 07/25/2025 8:15 AM EST Office Visit [facility] [address] [place] [address] Yaniv Thompson NP [address] [place] [address] documented as of this encounter Procedures Procedure Name Priority Date/Time Associated Diagnosis Comments XR HAND 3+ VIEWS LEFT Routine 10/14/2023 12:59 PM EDT documented in this encounter Results * XR hand 3+ views left (10/14/2023 12:59 PM EDT) Anatomical Region Laterality Modality Upper Extremities, Hand Left Radiogra phic Imaging Buffy Chung LEATHER CARVER IMG XR PROCEDURES Final Result documented in this encounter Visit Diagnoses Not on filedocumented in this encounter Care Teams Transmission Supervisor Relationship Specialty Start Date End Date Aman Mathias MD PCP - General Family Medicine 08/07/23 03/30/24 Unallocated, Aguilar Mena MD [address] [place] [address] PCP - General Family Medicine 03/31/24 04/07/24 Aman Mathias MD PCP - General Family Medicine 04/08/24 Buffy Chung NP Nurse Practitioner Family Medicine 08/07/23 documented as of this encounter
--- OUTSIDE RECORDS SUMMARY | 2025-03-21 11:46 | XMS_ITS | Encounter Summary ---
Author Organization [facility] Address [facility] [place] [address] Care Team Providers Care Filament Shaper Name Role Phone Paula Tuttle RN Unavailable UnavailWilliam Goncalves MD, PhD Unavailable [phone] Buffy Chung CNP Primary Care Provider [phone] Source Comments In the event this information is protected by the Federal Confidentiality of Alcohol and Drug AbusePatient Records regulations: The Federal rules restrict any use of the information to criminally investigate or prosecute any alcohol or drug abuse patient.[facility] Encounter Details Date Type Department Care Team (Late st Contact Info) Description 10/01/2023 Patient Msg Angio [address] [place] [address] Provider, Luis M Pre procedure instructions 10/02 [...] is lower risk 7 10/15/2022 Data from: https://www.neighborhoodatlas.medicine.[facility]/. Last address used for calculation [...] EDBety Land RN * Do you have serious difficulty [...] 06/08/2025 8:30 AM EST Results Only Main [place] [address] [address] [place] [address] STUDY PT 06/08/2025 9:30 AM EST Visit (SP) Office Hematology/Oncology [address] [place] [address] [place] [address] [place] [address] STUDY PT 06/08/2025 9:30 AM EST Nurse Visit Hematology/Oncology [address] [place] [address] Paula Tuttle, RN [address] [place] [address] STUDY PT 06/08/2025 9:45 AM EST Procedure Hematology/Oncology [address] [place] [address] EKG TO RESEARCH 06/08/2025 12:30 PM EST Office Visit Vascular Medicine [address] [place] [address] echo to research 09/12/2025 7:00 AM EDT Procedure Cardiology [address] [place] [address] Elevated troponin, history HCM 09/12/2025 7:45 AM EDT Office Visit Preventive Cardiology [address] [place] [address] Collins Beckman MD [address] [place] [address] Elevated troponin, history HCM documented as of this encounter Visit Diagnoses Not on filedocumented in this encounter Care Teams Filament Shaper Relationship Specialty Start Date End Date Buffy Chung, NEGATIVE CUTTER [facility] [place] [address] PCP - General Family Medicine 09/15/23 Paula Tuttle, MOISÉS [address] [place] [address] Research Nurse Hematology/Oncology 06/05/20 [place] [address] [place] [address] Physician Hematology/Oncology 06/05/20 documented as of this encounter
--- OUTSIDE RECORDS SUMMARY | 2025-03-21 11:46 | XMS_ITS | Encounter Summary ---
Author Organization [facility] tem Address [facility] [id number] [address] [place] [address] Care Team Providers Care Welfare Case Worker Name Role Phone Buffy Chung APRN-ER NURSE Primary Care Provider Encounter Details Date Type Department Care Team (Late st Contact Info) Description 03/10/2025 Results Follow-Up [facility] Physicians Cardiology [address] [place] [address] Kiya Banuelos, MOISÉS Holter monitor 3-5 days Social History Tobacco Use Types Packs/Day Years [...] as of this encounter Plan of Treatment Not on file documented as of this encounter Visit Diagnoses Not on filedocumented in this encounter Care Teams Welfare Case Worker Relationship Specialty Start Date End Date Buffy Chung, CANE LOADER-ER NURSE PCP - General Nurse Practitioner 05/19/24 documented as of this encounter
--- OUTSIDE RECORDS SUMMARY | 2025-03-21 11:46 | XMS_ITS | Encounter Summary ---
Author Organization [facility] Address [address] [place] [address] Care Team Providers Care Director Style Name Role Phone William Cavazos MD, PhD Unavailable [phone] Karl Gonzalez DO Primary Care Provider Paula Tuttle RN Unavailable UnavailIsrael Armstrong RN Unavailable Unavailable Aman Mathias MD Primary Care Provider [phone] Paula Tuttle RN Unavailable UnavailWilliam Goncalves MD, PhD Unavailable [phone] Aman Mathias MD Primary Care Provider [phone] Buffy Chung CNP Primary Care Provider [phone] Source Comments In the event this information is protected by the Federal Confidentiality of Alcohol and Drug AbusePatient Records regulations: The Federal rules restrict any use of the information to criminally investigate or prosecute any alcohol or drug abuse patient.[facility] Encounter Details Date Type Department Care Team (Late st Contact Info) Description 08/10/2019 Patient Msg Angio [address] [place] [address] Provider, Ccf Pre procedure instructions 08/15 Social [...] 06/08/2025 8:30 AM EST Results Only Main [place] [address] [address] [place] [address] STUDY PT 06/08/2025 9:30 AM EST Visit (SP) Office Hematology/Oncology [address] [place] [address] William Cavazos [place], PhD [address] [place] 0504106 STUDY PT 06/08/2025 9:30 AM EST Nurse Visit Hematology/Oncology [address] [place] [address] Paula Tuttle RN [address] [place] [address] STUDY PT 06/08/2025 9:45 AM EST Procedure Hematology/Oncology [address] [place] 0504106 EKG TO RESEARCH 06/08/2025 12:30 PM EST Office Visit Vascular Medicine [address] [place] [place] 0187306 echo to research 09/12/2025 7:00 AM EDT Procedure Cardiology [address] [place] [address] Elevated troponin, history HCM 09/12/2025 7:45 AM EDT Office Visit Preventive Cardiology [address] [place] 0179106 Collins Beckman MD [address] [place] 0187395 Elevated troponin, history HCM documented as of this encounter Visit Diagnoses Not on filedocumented in this encounter Care Teams Director Style Relationship Specialty Start Date End Date CarlosKarl DO Shar [address] [place] [address] PCP - General Family Medicine 03/12/16 04/30/20 Aman Mathias MD [address] [place] [address] PCP - General Family Medicine 05/01/20 09/02/21 Aman Mathias MD [address] [place] [address] PCP - General Family Medicine 09/03/21 09/14/23 Buffy Chung, HEALTH AND NUTRITION SPECIALIST [address] [place] [address] PCP - General Family Medicine 09/15/23 William Cavazos MD, PhD [address] [place] [address] Physician Hematology/Oncology 11/29/14 04/30/20 Paula Tuttle, MOISÉS [address] [place] [address] Research Nurse Hematology/Oncology 05/19/17 01/31/20 Israel Hanson RN Specialty Fluid Dynamicist Hematology/Oncology 03/10/20 04/30/20 Paula Tuttle, MOISÉS [address] [place] [address] Research Nurse Hematology/Oncology 06/05/20 [place] [address] [place] [address] Physician Hematology/Oncology 06/05/20 documented as of this encounter
--- OUTSIDE RECORDS SUMMARY | 2025-03-21 11:46 | XMS_ITS | Encounter Summary ---
Author Organization [facility] Address [address] [place] [address] Care Team Providers Care Steeplechase Jockey Name Role Phone Aman Mathias MD Primary Care Provider [phone] Aman Mathias MD Primary Care Provider [phone] Buffy Chung FINISHING SUPERVISOR PLASTIC SHEETS Unavailable Unallocated, Noms Provider Primary Care Provi hal Aman Mathias MD Primary Care Provider [phone] Reason for Visit * Reason Comments Med Refill Encounter Details Date Type Department Care Team (Late st Contact Info) Description 07/27/2023 Refill [facility] [address] [place] [address] Buffy Chung NP [address] [place] [address] Social History Tobacco Use Types Packs/Day Years [...] 8:15 AM EST Office Visit [facility] [address] [place] [address] Yaniv Thompson, YANE [address] [place], [place] [address] documented as of this encounter Visit Diagnoses Not on filedocumented in this encounter Care Teams Steeplechase Jockey Relationship Specialty Start Date End Date Aman Mathias MD PCP - General Family Medicine 11/27/22 08/06/23 Aman Mathias MD PCP - General Family Medicine 08/07/23 03/30/24 Unallocated, Miguel Ángel Mena MD [address] [facility] [place] [address] PCP - General Family Medicine 03/31/24 04/07/24 Aman Mathias MD PCP - General Family Medicine 04/08/24 Buffy Chung NP Nurse Practitioner Family Medicine 08/07/23 documented as of this encounter
--- OUTSIDE RECORDS SUMMARY | 2025-03-21 11:46 | XMS_ITS | Encounter Summary ---
Author Organization [facility] Address [address] [place] [address] Care Team Providers Care Keyboard Teacher Name Role Phone William Cavazos MD, PhD Unavailable [phone] Sonya Croft (Rn) (Hist) RN Unavailable U Karl Allen DO Primary Care Provider Navjot Gonzáles RN Unavailable [phone] Paula Tuttle RN Unavailable UnavailIsrael Armstrong RN Unavailable Unavailable Aman Mathias MD Primary Care Provider [phone] Paula Tuttle RN Unavailable UnavailWilliam Goncalves MD, PhD Unavailable [phone] Aman Mathias MD Primary Care Provider [phone] Buffy Chung CNP Primary Care Provider [phone] Source Comments In the event this information is protected by the Federal Confidentiality of Alcohol and Drug AbusePatient Records regulations: The Federal rules restrict any use of the information to criminally investigate or prosecute any alcohol or drug abuse patient.[facility] Encounter Details Date Type Department Care Team (Late st Contact Info) Description 10/23/2016 Patient Msg Medical Records [address] [place] [address] Provider, Ccf Registration Social History Tobacco Use [...] 06/08/2025 8:30 AM EST Results Only Main [place] [address] [place] [address] STUDY PT 06/08/2025 9:30 AM EST Visit (SP) Office Hematology/Oncology [address] [place] [address] [place] [address] [place] [address] STUDY PT 06/08/2025 9:30 AM EST Nurse Visit Hematology/Oncology [address] [place] [address] Paula Tuttle RN [address] [place] [address] STUDY PT 06/08/2025 9:45 AM EST Procedure Hematology/Oncology [address] [place], [place] [address] EKG TO RESEARCH 06/08/2025 12:30 PM EST Office Visit Vascular Medicine [address] [place], [place] [address] echo to research 09/12/2025 7:00 AM EDT Procedure Cardiology [address] [place], [place] [address] Elevated troponin, history HCM 09/12/2025 7:45 AM EDT Office Visit Preventive Cardiology [address] [place], [place] [address] Collins Beckman MD [address] [place] 4028995 Elevated troponin, history HCM documented as of this encounter Visit Diagnoses Not on filedocumented in this encounter Care Teams Keyboard Teacher Relationship Specialty Start Date End Date Karl Gonzalez DO [address] [place] [address] PCP - General Family Medicine 03/12/16 04/30/20 Aman Mathias MD [address] [place] [address] PCP - General Family Medicine 05/01/20 09/02/21 Aman Mathias MD [address] [place] [address] PCP - General Family Medicine 09/03/21 09/14/23 Buffy Chung, MOBILE QA TESTER [address] [place] [address] PCP - General Family Medicine 09/15/23 William Cavazos MD, PhD [address] [place] [address] Physician Hematology/Oncology 11/29/14 04/30/20 Sonya Croft (Rn) (Hist), RN Specialty Tile Classifier Oncology 11/29/14 05/18/17 [place]jot [place] [address] [place] 0808806 Specialty Tile Classifier Oncology 03/20/16 05/18/17 Paula Tuttle, RN [address] [place] [address] Research Nurse Hematology/Oncology 05/19/17 01/31/20 Israel Hanson, RN Specialty Tile Classifier Hematology/Oncology 03/10/20 04/30/20 Paula Tuttle, RN [address] [place] [address] Research Nurse Hematology/Oncology 06/05/20 [place] [address] [place] [address] Physician Hematology/Oncology 06/05/20 documented as of this encounter
--- OUTSIDE RECORDS SUMMARY | 2025-03-21 11:46 | XMS_ITS | Encounter Summary ---
Author Organization [facility] Address [address] [place] [address] Care Team Providers Care Paint Roller Covermaker Name Role Phone Aman Mathias MD Primary Care Provider [phone] Aman Mathias MD Primary Care Provider [phone] Buffy Chung CAREER GUIDANCE COUNSELOR Unavailable [phone] Unallocated, Noms Provider Primary Care Provi hal Aman Mathias MD Primary Care Provider [phone] Encounter Details Date Type Department Care Team (Late st Contact Info) Description 06/08/2023 Abstract [facility] [address] [place] [address] Buffy Chung, CAREER GUIDANCE COUNSELOR [address] [place] [address] Social History Tobacco Use Types Packs/Day Years [...] Visit [facility] [address] [place] [address] Ynaiv Thompson, CAREER GUIDANCE COUNSELOR [address] [place] [address] documented as of this encounter Visit Diagnoses Not on filedocumented in this encounter Care Teams Paint Roller Covermaker Relationship Specialty Start Date End Date Aman Mathias MD PCP - General Family Medicine 11/27/22 08/06/23 Aman Mathias MD PCP - General Family Medicine 08/07/23 03/30/24 Unallocated, Noms MD Rajesh [address] [place] [address] PCP - General Family Medicine 03/31/24 04/07/24 Aman Mathias MD PCP - General Family Medicine 04/08/24 Buffy Chung NP Nurse Practitioner Family Medicine 08/07/23 documented as of this encounter
--- OUTSIDE RECORDS SUMMARY | 2025-03-21 11:46 | XMS_ITS | Encounter Summary ---
Author Organization [facility] Address [address] [place] [address] Care Team Providers Care Valve And Regulator Repairer Name Role Phone Paula Tuttle RN Unavailable UnavailWilliam Goncalves MD, PhD Unavailable [phone] Aman Mathias MD Primary Care Provider [phone] Buffy Chung CNP Primary Care Provider [phone] Source Comments In the event this information is protected by the Federal Confidentiality of Alcohol and Drug AbusePatient Records regulations: The Federal rules restrict any use of the information to criminally investigate or prosecute any alcohol or drug abuse patient.[facility] Encounter Details Date Type Department Care Team (Late st Contact Info) Description 11/23/2021 Patient Msg Angio [address] [place] [address] Provider, Ccbeena Pre procedure instructions 11/29 Social [...] N ot on file 11/26/2021 Data from: https://www.neighborhoodatlas.medicine.[facility]/. Last address used for calculation [address] [...] 06/08/2025 8:30 AM EST Results Only Main [place] [address] [address] [place] [address] STUDY PT 06/08/2025 9:30 AM EST Visit (SP) Office Hematology/Oncology [address] [place] [address] [place] [address] [place] [address] STUDY PT 06/08/2025 9:30 AM EST Nurse Visit Hematology/Oncology [address] [place] [address] Palua Tuttle RN [address] [place] [address] STUDY PT 06/08/2025 9:45 AM EST Procedure Hematology/Oncology [address] [place] [address] EKG TO RESEARCH 06/08/2025 12:30 PM EST Office Visit Vascular Medicine [address] [place] [address] echo to research 09/12/2025 7:00 AM EDT Procedure Cardiology [address] [place] [address] Elevated troponin, history HCM 09/12/2025 7:45 AM EDT Office Visit Preventive Cardiology [address] [place] [address] Collins Beckman MD [address] [place] [address] Elevated troponin, history HCM documented as of this encounter Visit Diagnoses Not on filedocumented in this encounter Care Teams Valve And Regulator Repairer Relationship Specialty Start Date End Date Aman Mathias MD [address] [place], [place] [address] PCP - General Family Medicine 09/03/21 09/14/23 Buffy Chung, WHIPPED TOPPING FINISHER [address] [place] [address] PCP - General Family Medicine 09/15/23 Paula Tuttle, RN [address] [place] [address] Research Nurse Hematology/Oncology 06/05/20 [place] [address] [place] [address] Physician Hematology/Oncology 06/05/20 documented as of this encounter
--- OUTSIDE RECORDS SUMMARY | 2025-03-21 11:46 | XMS_ITS | Encounter Summary ---
Author Organization [facility] Address [facility] [place] [address] Care Team Providers Care Shrimp Peeler Name Role Phone Paula Tuttle RN Unavailable UnavailWilliam Goncalves MD, PhD Unavailable [phone] Buffy Chung CNP Primary Care Provider [phone] Source Comments In the event this information is protected by the Federal Confidentiality of Alcohol and Drug AbusePatient Records regulations: The Federal rules restrict any use of the information to criminally investigate or prosecute any alcohol or drug abuse patient.[facility] Encounter Details Date Type Department Care Team (Late st Contact Info) Description 03/12/2024 Patient Msg Angio [address] [place] [address] Provider, Ccf Instructions for upcoming procedure Friday03/19/24 [...] is lower risk 7 10/15/2022 Data from: https://www.neighborhoodatlas.[facility]/. Last address used for calculation [address] [...] 06/08/2025 8:30 AM EST Results Only Main [place] [address] [address] [place] [address] STUDY PT 06/08/2025 9:30 AM EST Visit (SP) Office Hematology/Oncology [address] [place] [address] [place] [address] [place] [address] STUDY PT 06/08/2025 9:30 AM EST Nurse Visit Hematology/Oncology [address] [place] [address] Paula Tuttle, MOISÉS [address] [place] [address] STUDY PT 06/08/2025 9:45 AM EST Procedure Hematology/Oncology [address] [place] [address] EKG TO RESEARCH 06/08/2025 12:30 PM EST Office Visit Vascular Medicine [address] [place] [address] echo to research 09/12/2025 7:00 AM EDT Procedure Cardiology [address] [place] [address] Elevated troponin, history HCM 09/12/2025 7:45 AM EDT Office Visit Preventive Cardiology [address] [place] [address] Collins Beckman MD [address] [place] [address] Elevated troponin, history HCM documented as of this encounter Visit Diagnoses Not on filedocumented in this encounter Care Teams Shrimp Peeler Relationship Specialty Start Date End Date Buffy Chung, TERMINAL MANAGER [facility] [place] [address] PCP - General Family Medicine 09/15/23 Paula Tuttle, MOISÉS [address] [place] [address] Research Nurse Hematology/Oncology 06/05/20 William Cavazos MD, PhD [address] [place] [address] Physician Hematology/Oncology 06/05/20 documented as of this encounter
--- OUTSIDE RECORDS SUMMARY | 2025-03-21 11:46 | XMS_ITS | Patient Health Record ---
Author Organization [facility] Address [address] [place] [address] Care Team Providers Care Outdoor Advertising Leasing Agent Name Role Phone Buffy Chung CNP Primary Care Provider Unavail able Allergies No Known Allergies Reason For Referral No Information Medications Medication SIG (Take, Route, Frequency, Duration) Notes Start Date End Date Status Pravastatin Sodium 40 MG Oral; Duration: 90 Days Active amLODIPine Besylate 10 MG Oral; Duration: 90 Days Active FreeStyle Precision Addison Test - In Vitro; Duration: 90 Days Active Farxiga 10 MG TAKE 1 TABLET BY BLANE TH DAILY WITH BREAKFAST Oral; Duration: 90 Days Active Insulin Lispro (1 Unit Dial) 100 UNIT/ML INJECT 10 UNITS WITH BREAKFAST AND 18 UNITS WITH DINNERPLUS SLIDING SCALE. MAX DAILY DOSE OF 74 UNITS Subcutaneous; Duration: 84 Days Active Lantus SoloStar 100 UNIT/ML Subcutaneous ; Duration: 24 Days Active HYDROcodone-Acetaminophen 5-325 MG Oral; Duration: 3 Days Activ e Social History Tobacco Use: Social History Observation Description Date Details (start date - stop date) Never Smoker NA - NA Tobacco Use/Smoking Question Answer Notes Patient is a nonsmoker Problems Problem Type SNOMED Code ICD Code Onset Dates Problem Status W/U Status Risk Notes Problem Acquired hallux rigidus (3283951) Hallux rigidus, right foot (M20.21) Active confirmed Problem Pain in right foot (6237221302176 07) Pain in right foot (M79.671) Active confirmed Plan Of Treatment No Information Insurance Providers Payer Name Payer Address Payer Phone Subscriber Number Group Number Insured Name Patient Relationship to Insured Coverage Start Date Coverage End Date [employer] [address] [address] [place] [phone] [id number] Zachary Avitia Jr Self - patient is the insured Medical (General) History Medical History History ICD Code Arthritis high blood pressure Surgical History Surgery Date(Month/Year) gallbladder 2009 L4 L5 fusion 2008 tonsilectomy 2000 knee 1998 Hospitalization History Reason Date(Month/Year) see above
--- OUTSIDE RECORDS SUMMARY | 2025-03-21 11:46 | XMS_ITS | Encounter Summary ---
Author Organization [facility] Address [address] [place] [address] Care Team Providers Care Field Marketing Associate Name Role Phone Paula Tuttle RN Unavailable UnavailWilliam Goncalves MD, PhD Unavailable [phone] Aman Mathias MD Primary Care Provider [phone] Buffy Chung CNP Primary Care Provider [phone] Source Comments In the event this information is protected by the Federal Confidentiality of Alcohol and Drug AbusePatient Records regulations: The Federal rules restrict any use of the information to criminally investigate or prosecute any alcohol or drug abuse patient.[facility] Encounter Details Date Type Department Care Team (Late st Contact Info) Description 07/01/2023 Patient Msg Cardiology [address] [place] [address] Provider, Luis M Appointment Cancellation [...] is lower risk 7 10/15/2022 Data from: https://www.neighborhoodatlas.medicine.[facility]/. Last address used for calculation [...] 06/08/2025 8:30 AM EST Results Only Main [facility] [id number] [place] [address] STUDY PT 06/08/2025 9:30 AM EST Visit (SP) Office Hematology/Oncology [address] [id number] [place] [address] [place] [address] STUDY PT 06/08/2025 9:30 AM EST Nurse Visit Hematology/Oncology [address] [place] [address] Paula Tuttle RN [address] [place] [address] STUDY PT 06/08/2025 9:45 AM EST Procedure Hematology/Oncology [address] [place], [place] [address] EKG TO RESEARCH 06/08/2025 12:30 PM EST Office Visit Vascular Medicine [address] [id number] echo to research 09/12/2025 7:00 AM EDT Procedure Cardiology [address] [place] [address] Elevated troponin, history HCM 09/12/2025 7:45 AM EDT Office Visit Preventive Cardiology [address] [id number] Collins Beckman MD [address] [id number] Elevated troponin, history HCM documented as of this encounter Visit Diagnoses Not on filedocumented in this encounter Care Teams Field Marketing Associate Relationship Specialty Start Date End Date Aman Mathias MD [address] [place] [address] PCP - General Family Medicine 09/03/21 09/14/23 Buffy Chung, POURED CONCRETE WALL TECHNICIAN [address] [place] [address] PCP - General Family Medicine 09/15/23 Paula Tuttle RN [address] [place] [address] Research Nurse Hematology/Oncology 06/05/20 [place] [address] [place] [id number] Physician Hematology/Oncology 06/05/20 documented as of this encounter
--- OUTSIDE RECORDS SUMMARY | 2025-03-21 11:46 | XMS_ITS | Encounter Summary ---
Author Organization [facility] Address [address] [facility] [place] [address] Care Team Providers Care Tabulating Supervisor Name Role Phone Aman Mathias MD Primary Care Provider [phone] Aman Mathias MD Primary Care Provider [phone] Buffy Chung SUPERVISOR LENDING ACTIVITIES Unavailable [phone] Unallocated, Noms Provider Primary Care Provi hal Aman Mathias MD Primary Care Provider [phone] Encounter Details Date Type Department Care Team [...] [facility] [address] [place] [address] Yaniv Thompson NP [address] [place] [address] documented as of this encounter [...] QTC Calculation(Bazett) : 399 ms Calculated P [place] : 22 degrees Calculated R Sutter : 34 degrees Calculated T Sutter : 17 degrees NORMAL SINUS RHYTHM NORMAL ECG Confirmed by ZACHARY SAMS MD ([id number]) on 07/25/2023 3:11:05 PM NAME : ZACHARY MERRITT PID : [id number] : 1970 Gender : Male Race : [...] Radiologist, MD - 07/25/2023 Ventricular Rate : 70 BPM Atrial Rate : 70 BPM P-R Interval : 160 ms QRS Duration : 90 ms Q-T Interval : 370 ms QTC Calculation(Bazett) : 399 ms Calculated P [place] : 22 degrees Calculated R [place] : 34 degrees Calculated T [place] : 17 degrees NORMAL SINUS RHYTHM NORMAL ECG Confirmed by ZACHARY SAMS MD ([id number]) on 07/25/2023 3:11:05 PM NAME : ZACHARY MERRITT PID : [id number] : 1970 Gender : Male Race : [...] on filedocumented in this encounter Care Teams Tabulating Supervisor Relationship Specialty Start Date End Date Aman Mathias MD PCP - General Family Medicine 11/27/22 08/06/23 Aman Mathias MD PCP - General Family Medicine 08/07/23 03/30/24 Unallocated, Noms Provider, [address] [place] [address] PCP - General Family Medicine 03/31/24 04/07/24 Aman Mathias MD PCP - General Family Medicine 04/08/24 Buffy Chung NP Nurse Practitioner Family Medicine 08/07/23 documented as of this encounter
--- OUTSIDE RECORDS SUMMARY | 2025-03-21 11:46 | XMS_ITS | Encounter Summary ---
Author Organization [facility] Address [address] [place] [address] Care Team Providers Care Resident Services Coordinator Name Role Phone William Cavazos MD, PhD Unavailable [phone] Karl Gonzalez DO Primary Care Provider Paula Tuttle RN Unavailable UnavailIsrael Armstrong RN Unavailable Unavailable Aman Mathias MD Primary Care Provider [phone] Paula Tuttle RN Unavailable UnavailWilliam Goncalves MD, PhD Unavailable [phone] Aman Mathias MD Primary Care Provider [phone] Buffy Chung CNP Primary Care Provider [phone] Source Comments In the event this information is protected by the Federal Confidentiality of Alcohol and Drug AbusePatient Records regulations: The Federal rules restrict any use of the information to criminally investigate or prosecute any alcohol or drug abuse patient.[facility] Encounter Details Date Type Department Care Team (Late st Contact Info) Description 04/12/2019 Get Medical Advice Hematology/Oncology [address] [place] [address] [place] [address] [place] [address] RE: Test Result Question Social History Tobacco [...] 06/08/2025 8:30 AM EST Results Only Main [place] [address] [address] [place] [address] STUDY PT 06/08/2025 9:30 AM EST Visit (SP) Office Hematology/Oncology [address] [place] [address] [place] [address] [place] [address] STUDY PT 06/08/2025 9:30 AM EST Nurse Visit Hematology/Oncology [address] [place] [address] Paula Tuttle, MOISÉS [address] [place] [address] STUDY PT 06/08/2025 9:45 AM EST Procedure Hematology/Oncology [address] [place] [address] EKG TO RESEARCH 06/08/2025 12:30 PM EST Office Visit Vascular Medicine [address] [place], [place] [address] echo to research 09/12/2025 7:00 AM EDT Procedure Cardiology [address] [place], [place] [address] Elevated troponin, history HCM 09/12/2025 7:45 AM EDT Office Visit Preventive Cardiology [address] [place], [place] [address] Collins Beckman MD [address] [place] [address] Elevated troponin, history HCM documented as of this encounter Visit Diagnoses Not on filedocumented in this encounter Care Teams Resident Services Coordinator Relationship Specialty Start Date End Date Carlos Karleleazar Myles DO [address] [place] [address] PCP - General Family Medicine 03/12/16 04/30/20 Aman Mathias MD [address] [place] [address] PCP - General Family Medicine 05/01/20 09/02/21 Aman Mathias MD [address] [place] [address] PCP - General Family Medicine 09/03/21 09/14/23 Buffy Chung, WAREHOUSE ENGINEER [address] [place] [address] PCP - General Family Medicine 09/15/23 William Cavazos MD, PhD [address] [place] [address] Physician Hematology/Oncology 11/29/14 04/30/20 Paula Tuttle, RN [address] [place] [address] Research Nurse Hematology/Oncology 05/19/17 01/31/20 Israel Hanson RN Specialty Supervisor Public Health Nursing Hematology/Oncology 03/10/20 04/30/20 Paula Tuttle, RN [address] [place] [address] Research Nurse Hematology/Oncology 06/05/20 [place] [address] [place] [address] Physician Hematology/Oncology 06/05/20 documented as of this encounter
--- OUTSIDE RECORDS SUMMARY | 2025-03-21 11:46 | XMS_ITS | Encounter Summary ---
Author Organization [facility] Address [facility] [place] [address] Care Team Providers Care Sound Assistant Name Role Phone Paula Tuttle RN Unavailable UnavailWilliam Goncalves MD, PhD Unavailable [phone] Buffy Chung CNP Primary Care Provider [phone] Source Comments In the event this information is protected by the Federal Confidentiality of Alcohol and Drug AbusePatient Records regulations: The Federal rules restrict any use of the information to criminally investigate or prosecute any alcohol or drug abuse patient.[facility] Encounter Details Date Type Department Care Team (Late st Contact Info) Description 09/02/2024 Patient Msg Angio [address] [place] [address] Provider, Luis M Pre procedure instructions 09/10 [...] is lower risk 9 04/16/2024 Data from: https://www.neighborhoodatlas.medicine.[facility]/. Last address used for calculation [address] 04/16/2024 Sex and Gender Information [...] 06/08/2025 8:30 AM EST Results Only Main [place] [address] [address] [place] [address] STUDY PT 06/08/2025 9:30 AM EST Visit (SP) Office Hematology/Oncology [address] [place] [address] [place] [address] [place] [address] STUDY PT 06/08/2025 9:30 AM EST Nurse Visit Hematology/Oncology [address] [place] [address] Paula Tuttle, RN [address] [place] [address] STUDY PT 06/08/2025 9:45 AM EST Procedure Hematology/Oncology [address] [place] [address] EKG TO RESEARCH 06/08/2025 12:30 PM EST Office Visit Vascular Medicine [address] [place] [address] echo to research 09/12/2025 7:00 AM EDT Procedure Cardiology [address] [place] [address] Elevated troponin, history HCM 09/12/2025 7:45 AM EDT Office Visit Preventive Cardiology [address] [place] [address] Collins Beckman MD [address] [place] [address] Elevated troponin, history HCM documented as of this encounter Visit Diagnoses Not on filedocumented in this encounter Care Teams Sound Assistant Relationship Specialty Start Date End Date Buffy Chung, BUSINESS CONTINUITY STRATEGY DIRECTOR [facility] [place] [address] PCP - General Family Medicine 09/15/23 Paula Tuttle, MOISÉS [address] [place] [address] Research Nurse Hematology/Oncology 06/05/20 [place] [address] [place] [address] Physician Hematology/Oncology 06/05/20 documented as of this encounter
--- OUTSIDE RECORDS SUMMARY | 2025-03-21 11:46 | XMS_ITS | Encounter Summary ---
Author Organization [facility] Address [address] [place] [address] Care Team Providers Care Clerk Of Superior Court Name Role Phone Aman Mathias MD Primary Care Provider [phone] Buffy Chung PLASTERER SPOT Unavailable [phone] Unallocated, Noms Provider Primary Care Provi hal Aman Mathias MD Primary Care Provider [phone] Encounter Details Date Type Department Care Team (Late st Contact Info) Description 10/14/2023 Clinisync Result Encounter [facility] External Department Unsolicited Buffy Chung, YANE [address] [place] [address] Social History Tobacco Use Types Packs/Day Years [...] 07/25/2025 8:15 AM EST Office Visit [facility] [address] [place] [address] Yaniv Thompson NP [address] [facility] [place] [address] documented as of this encounter Procedures Procedure Name Priority Date/Time Associated Diagnosis Comments XR HAND 3+ VIEWS LEFT 10/14/2023 12:32 PM EDT documented in this encounter Results * XR hand 3+ views left (10/14/2023 12:32 PM EDT) Anatomical Region Laterality Modality Upper Extremities, Hand Left Radiogra phic Imaging 10/14/2023 12:3 2 PM EDT Narrative 10/14/2023 12:35 PM EDT [address] [address] XRay Report Signed Patient: DERRELL MERRITT MR#: [id number] : 1970 Acct:[id number] Age/Sex: 53 / M ADM Date: 10/14/23 Loc: LAB Attending Dr: Buffy Chung NP Ordering Physician: Buffy Chung NP Date of Service: 10/14/23 Procedure(s): XR hand LT min 3V Accession Number(s): [id number] cc: Buffy Chung NP [address] [address] Patient Name: DERRELL MERRITT MRN: [id number] date: 1970 Sex: M Assigned Patient Location: LAB Current Patient Location: LAB Accession/Order Number: [id number] Exam Date: 10/14/2023 11:45 Report Date: 10/14/2023 [...] Signed By: 10/14/23 1235 DD/ 1232 TD/TT: Supervisor [place] [employer] [place]: Procedure Note Radiology, Radiologist, - 10/14/2023 [place] [address] XRay Report Signed Patient: DERRELL MERRITT CMR#: [id number] : 1970Acct:[id number] Age/Sex: 53 / MADM Date: 10/14/23 Loc: LAB Attending Dr: Buffy Chung NP Ordering Physician: Buffy Chung NP Date of Service: 10/14/23 Procedure(s): XR hand LT min 3V Accession Number(s): [id number] cc: Buffy Chung NP [address] [place] [id number] Patient Name: DERRELL MERRITT MRN: [id number] date: 1970 Sex: M Assigned Patient Location: LAB Current Patient Location: LAB Accession/Order Number: [id number] Exam Date: 10/14/2023 11:45 Report Date: 10/14/2023 [...] M.D. Signed By:10/14/23 1235 DD/ 1232 TD/TT: Supervisor [place] [employer] [place]: Buffy Chung PLASTERER SPOT IMG XR PROCEDURES Final Result documented in this encounter Visit Diagnoses Not on filedocumented in this encounter Care Teams Clerk Of Superior Court Relationship Specialty Start Date End Date Aman Mathias MD PCP - General Family Medicine 08/07/23 03/30/24 Unallocated, Noms MD Rajesh [address] [place] [address] PCP - General Family Medicine 03/31/24 04/07/24 Aman Mathias MD PCP - General Family Medicine 04/08/24 Buffy Chung NP Nurse Practitioner Family Medicine 08/07/23 documented as of this encounter
--- OUTSIDE RECORDS SUMMARY | 2025-03-21 11:46 | XMS_ITS | Encounter Summary ---
Author Organization [facility] Address [address] [facility] [place] [address] Care Team Providers Care Research Quality Assurance Specialist Name Role Phone Aman Mathias MD Primary Care Provider [phone] Aman Mathias MD Primary Care Provider [phone] Buffy Chung ELECTRON BEAM MACHINE WELDER SETTER Unavailable [phone] Unallocated, Noms Provider Primary Care Provi hal Aman Mathias MD Primary Care Provider [phone] Encounter Details Date Type Department Care Team [...] Visit [facility] [address] [place] [address] Yaniv Thompson NP [address] [place] [address] documented as of this encounter [...] QTC Calculation(Bazett) : 415 ms Calculated P [place] : 15 degrees Calculated R [place] : 27 degrees Calculated T [place] : 17 degrees NORMAL SINUS RHYTHM NORMAL ECG Confirmed by ZACHARY SAMS MD ([id number]) on 07/25/2023 3:10:59 PM NAME : ZACHARY MERRITT PID : [id number] : 1970 Gender : Male Race : [...] Radiologist, MD - 07/25/2023 Ventricular Rate : 74 BPM Atrial Rate : 74 BPM P-R Interval : 154 ms QRS Duration : 92 ms Q-T Interval : 374 ms QTC Calculation(Bazett) : 415 ms Calculated P [place] : 15 degrees Calculated R [place] : 27 degrees Calculated T [place] : 17 degrees NORMAL SINUS RHYTHM NORMAL ECG Confirmed by ZACHARY SAMS MD ([id number]) on 07/25/2023 3:10:59 PM NAME : ZACHARY MERRITT PID : [id number] : 1970 Gender : Male Race : [...] on filedocumented in this encounter Care Teams Research Quality Assurance Specialist Relationship Specialty Start Date End Date Aman Mathias MD PCP - General Family Medicine 11/27/22 08/06/23 Aman Mathias MD PCP - General Family Medicine 08/07/23 03/30/24 Unallocated, Noms Provider, [address] [place] [address] PCP - General Family Medicine 03/31/24 04/07/24 Aman Mathias MD PCP - General Family Medicine 04/08/24 Buffy Chung NP Nurse Practitioner Family Medicine 08/07/23 documented as of this encounter
--- OUTSIDE RECORDS SUMMARY | 2025-03-21 11:46 | XMS_ITS | Encounter Summary ---
Author Organization [facility] Address [address] [place] [address] Care Team Providers Care Information Analyst Name Role Phone William Cavazos MD, PhD Unavailable [phone] Karl Gonzalez DO Primary Care Provider Paula Tuttle RN Unavailable UnavailIsrael Armstrong RN Unavailable Unavailable Aman Mathias MD Primary Care Provider [phone] Paula Tuttle RN Unavailable UnavailWilliam Goncalves MD, PhD Unavailable [phone] Aman Mathias MD Primary Care Provider [phone] Buffy Chung CNP Primary Care Provider [phone] Source Comments In the event this information is protected by the Federal Confidentiality of Alcohol and Drug AbusePatient Records regulations: The Federal rules restrict any use of the information to criminally investigate or prosecute any alcohol or drug abuse patient.[facility] Encounter Details Date Type Department Care Team (Late st Contact Info) Description 04/29/2019 Patient Msg Angio [address] [place] [address] Provider, Ccf appointment 05/03 Social History Tobacco [...] 06/08/2025 8:30 AM EST Results Only Main [place] [address] [address] [place] [address] STUDY PT 06/08/2025 9:30 AM EST Visit (SP) Office Hematology/Oncology [address] [place] [address] [place] [address] [place] [address] STUDY PT 06/08/2025 9:30 AM EST Nurse Visit Hematology/Oncology [address] [place] [address] Paula Tuttle RN [address] [place] [address] STUDY PT 06/08/2025 9:45 AM EST Procedure Hematology/Oncology [address] [place] [address] EKG TO RESEARCH 06/08/2025 12:30 PM EST Office Visit Vascular Medicine [address] 6114706 echo to research 09/12/2025 7:00 AM EDT Procedure Cardiology [address] [place], [place] [address] Elevated troponin, history HCM 09/12/2025 7:45 AM EDT Office Visit Preventive Cardiology [address] 9206306 Collins Beckman MD [address] [address]47[address] Elevated troponin, history HCM documented as of this encounter Visit Diagnoses Not on filedocumented in this encounter Care Teams Information Analyst Relationship Specialty Start Date End Date Karl Gonzalez DO [address] [place] [address] PCP - General Family Medicine 03/12/16 04/30/20 Aman Mathias MD [address] [place] [address] PCP - General Family Medicine 05/01/20 09/02/21 Aman Mathias MD [address] [place] [address] PCP - General Family Medicine 09/03/21 09/14/23 Buffy Chung, PEBBLE MILL OPERATOR [address] [place] [address] PCP - General Family Medicine 09/15/23 William Cavazos MD, PhD [address] [place] [address] Physician Hematology/Oncology 11/29/14 04/30/20 Paula Tuttle, MOISÉS [address] [place] [address] Research Nurse Hematology/Oncology 05/19/17 01/31/20 Israel Hanson RN Specialty Tape Keller Operator Hematology/Oncology 03/10/20 04/30/20 Paula Tuttle, MOISÉS [address] [place] [address] Research Nurse Hematology/Oncology 06/05/20 [place] [address] [place] [address] Physician Hematology/Oncology 06/05/20 documented as of this encounter
--- OUTSIDE RECORDS SUMMARY | 2025-03-21 11:46 | XMS_ITS ---
Author Organization [facility] Address [address] [place] [address] Care Team Providers Care Child Care Attendant School Name Role Phone Paula Tuttle RN Unavailable Unavailabl e William Cavazos MD, PhD Unavailable [phone] Buffy Chung CNP Primary Care Provider [phone] Active Problems * This document contains information received from the source organization and may not represent a complete record from that organization. 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 Past [...]
--- OUTSIDE RECORDS SUMMARY | 2025-03-21 11:46 | XMS_ITS | Encounter Summary ---
Author Organization [facility] Address [address] [place] [address] Care Team Providers Care Grain Thresher Name Role Phone Aman Mathias MD Primary Care Provider [phone] Aman Mathias MD Primary Care Provider [phone] Buffy Chung JEWELRY SALES REPRESENTATIVE Unavailable [phone] Unallocated, Noms Provider Primary Care Provi hal Aman Mathias MD Primary Care Provider [phone] Encounter Details Date Type Department Care Team (Late Contact Info) Description 03/10/2023 [facility] [address] [place] [address] Jr. Kapil Kilpatrick, DO [address] [facility] [address] [place], [place] [id number] Social History Tobacco Use Types Packs/Day Years [...] Department Care Team (Late Contact Info) Description 07/25/2025 8:15 AM EST [facility] [address] [place] [address] Yaniv Thompson, JEWELRY SALES REPRESENTATIVE [address] [place] [address] documented as of this encounter Visit Diagnoses Not on filedocumented in this encounter Care Teams Grain Thresher Relationship Specialty Start Date End Date Aman Mathias MD PCP - General Family Medicine 11/27/22 08/06/23 Aman Mathias MD PCP - General Family Medicine 08/07/23 03/30/24 Unallocated, Noms Provider, [address] [place] [address] PCP - General Family Medicine 03/31/24 04/07/24 Aman Mathias MD PCP - General Family Medicine 04/08/24 Buffy Chung NP Nurse Practitioner Family Medicine 08/07/23 documented as of this encounter
--- OUTSIDE RECORDS SUMMARY | 2025-03-21 11:46 | XMS_ITS | Clinical Summary ---
Author Organization [facility] Healthcare Address [address] [place] [address] Care Team Providers Care Sales Expert Name Role Phone Buffy Chung NP Unavailable [phone] Aman Mathias MD Primary Care Provider [phone] Allergies Active Allergy Reactions Criticality Noted Date Comments Morphine GI intolerance 11/24/2023 Medications Continuous Blood Gluc Fitting Room Checker (FreeStyle Carlitos 2 [place]) device USE DIRECTED TO CHECK GLUCOSE FOUR [...] by mouth Daily 90 tablet 1 5 Active pravastatin (Pravachol) 80 MG tabletIndications: Mixed hyperlipidemia Take 1 tablet (80 mg) by mouth Daily 90 tablet 1 5 Active lisinopril 20 MG tabletIndications: Primary hypertension Take 1 tablet (20 mg) by mouth Daily 90 tablet 1 5 Active insulin lispro (HumaLOG) 100 UNIT/ML injectionIndicatio [...] with long-term current use of insulin (HCC) 40 units twice a day 60 mL 2 5 Active Continuous Glucose Sensor (FreeStyle Carlitos 3 Plus Sensor) misc 5 Active Active Problems Problem Noted Date [...] fitting footwear Goal for adequate glycemic control half-way (current) use of insulin 08/11/2024 Assessment & [...] Degenerative lumbar disc 08/07/2023 Arthritis 08/07/2023 Pancreatitis ([facility]) 07/14/2023 GERD (gastroesophageal reflux disease) Assessment & [...] : 1/2 pill daily #3 samples, lot [id number], exp 08/04 Assessment & Plan (05/31/2024 4:17 [...] until next month #3 samples Jardiance: 25mg [id number], exp 07/2025 Will try a co pay [...] 1 pill daily (#6 samples given lot [id number], exp 08/04 If blood sugar is less [...] 153, average 14 day 164, average 30 [id number], and average 90 [id number] Assessment & Plan (10/14/2023 11:11 AM EDT): [...] (05/06/2023 5:40 PM EST): Recently added some radhaga about 2 weeks ago, has had 2 [...] Encounters Date Type Department Care Team Description 03/15/2025 3:00 PM EDT Treatment [facility] [address] [place] [address] Ava Aldana, ANNETTA Tear of left supraspinatus tendon (Primary Dx); Left bicipital tenosynovitis; Sprain of left shoulder, unspecified shoulder sprain type, initial encounter; Sprain of left shoulder, initial encounter 03/15/2025 Travel 03/10/2025 4:00 PM EDT Treatment [facility] [address] [place] [address] Jason Elizabeth, PT Tear of left supraspinatus tendon (Primary Dx); Left bicipital tenosynovitis; Sprain of left shoulder, unspecified shoulder sprain type, initial encounter 03/10/2025 [employer] [facility] [address] [place] [address] Jason Elizabeth, PT 03/10/2025 Travel 03/08/2025 3:30 PM EDT Treatment [facility] [address] [place] [address] Melisa Rocha, ANNETTA Tear of left supraspinatus tendon (Primary Dx); Left bicipital tenosynovitis; Sprain of left shoulder, unspecified shoulder sprain type, initial encounter; Sprain of left shoulder, initial encounter 03/08/2025 [employer] [facility] [address] [place] [address] Melisa Rocha PTA 03/08/2025 Travel 03/03/2025 5:00 PM EDT Treatment [place] [address] [address] [place] [address] Melisa Rocha, ANNETTA Tear of left supraspinatus tendon (Primary Dx); Left bicipital tenosynovitis; Sprain of left shoulder, unspecified shoulder sprain type, initial encounter; Sprain of left shoulder, initial encounter 03/03/2025 [employer] [address] [place] [address] Melisa Rocha, MANAGER MANAGED CARE 03/03/2025 Travel 03/01/2025 4:30 PM EDT Treatment [facility] [address] [place] [address] KenAva sepulveda, MANAGER MANAGED CARE Tear of left supraspinatus tendon (Primary Dx); Left bicipital tenosynovitis; Sprain of left shoulder, unspecified shoulder sprain type, initial encounter; Sprain of left shoulder, initial encounter 03/01/2025 [facility] flowsheet [facility] [address] [place] [address] KenAva sepulveda, MANAGER MANAGED CARE 03/01/2025 Travel 02/24/2025 3:00 PM EDT Treatment [place] [address] [address] [place] [address] Melisa Rocha, MANAGER MANAGED CARE Tear of left supraspinatus tendon (Primary Dx); Left bicipital tenosynovitis; Sprain of left shoulder, unspecified shoulder sprain type, initial encounter; Sprain of left shoulder, initial encounter 02/24/2025 [facility] flowsheet [facility] [address] [place] [address] Melisa Rocha, MANAGER MANAGED CARE 02/24/2025 Travel 02/22/2025 3:00 PM EDT Treatment [facility] [address] [place] [address] Melisa Rocha, MANAGER MANAGED CARE Tear of left supraspinatus tendon (Primary Dx); Left bicipital tenosynovitis; Sprain of left shoulder, unspecified shoulder sprain type, initial encounter 02/22/2025 [facility] flowsheet [facility] [address] [place] [address] Melisa Rocha, MANAGER MANAGED CARE 02/22/2025 Travel 02/17/2025 3:30 PM EDT Treatment [address] [place] [address] Melisa Rocha, ANNETTA Tear of left supraspinatus tendon (Primary Dx); Left bicipital tenosynovitis; Sprain of left shoulder, unspecified shoulder sprain type, initial encounter; Sprain of left shoulder, initial encounter 02/17/2025 Travel 02/04/2025 12:00 PM EDT Treatment [facility] [address] [place] [address] Melisa Rocha PTA Tear of left supraspinatus tendon (Primary Dx); Left bicipital tenosynovitis; Sprain of left shoulder, unspecified shoulder sprain type, initial encounter 02/04/2025 [facility] [address] [place] [address] Melsia Rocha, MANAGER MANAGED CARE 02/04/2025 Travel 02/01/2025 3:00 PM EDT Treatment [facility] [address] [facility] [address] Ava Aldana, ANNETTA Tear of left supraspinatus tendon (Primary Dx); Left bicipital tenosynovitis; Sprain of left shoulder, unspecified shoulder sprain type, initial encounter 02/01/2025 [employer] [address] [place] [address] Ava Aldana, MANAGER MANAGED CARE 02/01/2025 Travel 01/27/2025 3:00 PM EDT Treatment [place] [address] [place] [address] Melisa Rocha, MANAGER MANAGED CARE Tear of left supraspinatus tendon (Primary Dx); Left bicipital tenosynovitis; Sprain of left shoulder, unspecified shoulder sprain type, initial encounter 01/27/2025 [facility] [address] [place] [address] Melisa Rocha, MANAGER MANAGED CARE 01/27/2025 Travel 01/24/2025 9:00 AM EDT Treatment [place] [place] [address] Melisa Rocha PTA Tear of left supraspinatus tendon (Primary Dx); Left bicipital tenosynovitis; Sprain of left shoulder, unspecified shoulder sprain type, initial encounter 01/24/2025 8:15 AM EDT Office Visit [facility] [place] [address] Yaniv Thompson, SAMPLER TESTER Sprain of left shoulder, initial encounter (Primary Dx); Tear of left supraspinatus tendon 01/24/2025 [employer] flowsheet [place] [address] [place] [address] Yaniv Thompson NP 01/24/2025 Travel 01/18/2025 3:00 PM EDT Treatment [address] [place] [address] Jason Elizabeth, PT Tear of left supraspinatus tendon (Primary Dx); Left bicipital tenosynovitis; Sprain of left shoulder, unspecified shoulder sprain type, initial encounter 01/18/2025 Travel 01/17/2025 3:20 PM EDT Office Visit [facility] [address] [place] [address] Buffy Chung NP Gastroesophageal reflux disease without esophagitis (Primary Dx); Essential (primary) hypertension ; Type 2 diabetes mellitus with hyperglycemia, with long-term current use of insulin ([facility]); Morbid (severe) obesity due to excess calories ([facility]) 01/17/2025 [employer] flowsheet [facility] [address] [place] [address] Buffy Chung NP 01/13/2025 3:00 PM EDT Treatment [address] [place] [address] Jason Elizabeth, PT Tear of left supraspinatus tendon (Primary Dx); Left bicipital tenosynovitis; Sprain of left shoulder, unspecified shoulder sprain type, initial encounter 01/13/2025 [employer] [facility]sheet [facility] [address] [place] [address] Jason Elizabeth, PT 01/13/2025 Travel 01/11/2025 3:00 PM EDT Treatment [place] [address] [place] [address] Ava Aldana, MANAGER MANAGED CARE Tear of left supraspinatus tendon (Primary Dx); Left bicipital tenosynovitis; Sprain of left shoulder, unspecified shoulder sprain type, initial encounter 01/11/2025 Travel 01/05/2025 8:00 AM EDT Treatment [place] [address] [place] [address] Melisa Rocha, MANAGER MANAGED CARE Tear of left supraspinatus tendon (Primary Dx); Left bicipital tenosynovitis; Sprain of left shoulder, unspecified shoulder sprain type, initial encounter 01/05/2025 Travel 01/04/2025 10:00 AM EDT Evaluation [place] [address] [place] [address] Jason Elizabeth, PT Tear of left supraspinatus tendon (Primary Dx); Left bicipital tenosynovitis; Sprain of left shoulder, unspecified shoulder sprain type, initial encounter; Sprain of left shoulder, initial encounter 01/04/2025 Travel 01/04/2025 Plan of Care Documentation [place] [address] [place] [address] 12/23/2024 Clinisync Result Encounter [facility] External Department Unsolicited Provider, Generic External Data 12/22/2024 Clinisync Result Encounter [facility] External Department Unsolicited Provider, Generic External Data from Last 3 Months Immunizations Immunization Administration Dates Next Due Influenza Nasal, Unspecified 05/20/2017 Influenza, injectable, quadrivalent, preservativ e free 04/21/2018,05/21/2017 Influenza, seasonal, injectable, preservative fr ee 07/19/2016 Novel [id number], preservative-free 07/13 Pneumococcal Conjugate PCV 13 05/20/2017 [...] EST Office Visit [facility] [address] [place] [address] Yaniv Thompson, SAMPLER TESTER [address] [place] [address] Procedures Procedure Name Priority Date/Time Associated Diagnosis Comments [facility] HIGH SENSITIVITY TROPONIN T Routine 12/23/2024 3:25 PM EDT ALL URINALYSIS Routine 12/22/2024 8:46 AM EDT [facility] SEND OUT TST 1 Routine 12/22/2024 8 [...] DIFF BLD Routine 12/22/2024 8:36 AM EDT from Last 3 Months Results * (ABNORMAL) [facility] HIGH SENSITIVITY TROPONIN T (12/23/2024 3:25 PM EDT) Only the most recent of2 resultswithin the time period is included. TROPONIN T SERPL HS-MCNC 35(H) <12 ng/L [facility] 12/23/2024 3:25 PM EDT 12/23/2024 10:25 PM EDT Narrative TREVOR - 12/24/2024 6:51 AM EDT Specimen Type: BLOOD SPECIMEN Ordering Facility: [facility] Address: [address] [place] [address] Original Ordering Provider: TYRONE HOWELL us Generic External Data Provider TREVOR orozco Result [facility] [address] [place] [address] [place] [address] * (ABNORMAL) ALL URINALYSIS (12/22/2024 8:46 AM EDT) [facility] COLOR UR Yellow Yellow CCF CCF [...] AM EDT 12/22/2024 9:13 AM EDT Narrative CLINISYNC - 12/22/2024 9:24 AM EDT Specimen Type: URINE SPECIMEN Ordering Facility: [facility] Address: [address] [place] [address] Original Ordering Provider: TYRONE HOWELL us Generic External Data Provider JOSE DAVIDMARGRETLORETTA F inal Result [facility] [address] [facility] [address] [place] [address] * CCF BCR/ABL1 P210 QUANTITATIVE PCR BLOOD (12/22/2024 8:36 AM EDT) Pathologist [facility] BCR/ABL1 P210 INTERPRETATION CCF Comment: BCR/ABL1 p210 Quantitative PCR Laboratory Accession Number: [id number] Result: DETECTED MR: 2.55 %IS: 0.2815 Interpretation: p210 BCR/ABL1 transcripts were detected. Quantitative results are expressed on the International Scale (IS) and a log molecular response (MR) is calculated. On this scale, a value of less than or equal to 0.1% corresponds to a major molecular response (MMR or MR3.0). Methodology: The [employer] QuantideX BCR/ABL IS assay is an [...] 2015;29:999-1003 Interpretation performed by Radha Lozano, PhD, [facility] 12/22/2024 8:36 AM EDT 12/22/2024 12:00 PM EDT Narrative CLINISYNC - 12/24/2024 4:11 PM EDT Specimen Type: BLOOD SPECIMEN Ordering Facility: [facility] Address: [address] [place] [address] Original Ordering Provider: TYRONE HOWELL Generic External Data Provider CLINISYNC F inal Result Performing Organization Address [facility] Co de Phone Number [facility] CC [address] [place] [address] * METRO BILIRUBIN, DIRECT (12/22/2024 8:36 AM EDT) [facility] BILIRUB CONJ SERPL-MCNC 0.1 <0.3 mg/dL [facility] 12/22/2024 8:36 AM EDT 12/22/2024 8:52 AM EDT Narrative CLINISYNC - 12/22/2024 9:28 AM EDT Specimen Type: BLOOD SPECIMEN Ordering Facility: [facility] Address: [address] [place] [address] Original Ordering Provider: TYRONE HOWELL Generic External Data Provider CLINISYNC F inal Result Performing Organization Address [facility] Co de Phone Number [facility] [address] [place] [address] * (ABNORMAL) CCF URATE SERPL-MCNC (12/22/2024 8:36 AM EDT) [facility] URATE SERPL-MCNC 2.6(L) 4.0 - 8.1 mg/dL [facility] 12/22/2024 8:36 AM EDT 12/22/2024 8:52 AM EDT Narrative CLINISYNC - 12/22/2024 9:24 AM EDT Specimen Type: BLOOD SPECIMEN Ordering Facility: [facility] Address: [address] [place] [address] Original Ordering Provider: TYRONE HOWELL Generic External Data Provider TREVOR orozco Result Performing Organization Address [facility] Co de Phone Number TREVOR [place] [address] [place] [phone] * (ABNORMAL) [facility] TRIGL SERPL-MCNC (12/22/2024 8:36 AM EDT) [facility] TRIGL SERPL-MCNC 156(H) <150 mg/dL CCF Comment: <150 mg/dL, Normal 150-199 mg/dL, Borderline high 200-499 mg/dL, High >499 mg/dL, Very high Reference: 1. National Cholesterol Education Program ATP III Guideline At-A-Glance Quick Desk Reference: National Heart, Lung, and Blood [place]. National Institutes of Health. 2001: NIH Publication No. 01-3305. CCF FASTING TIME 13 hrs [facility] 12/22/2024 8:36 AM EDT 12/22/2024 8:52 AM EDT Narrative CLINISYNC - 12/22/2024 9:24 AM EDT Specimen Type: BLOOD SPECIMEN Ordering Facility: [facility] Address: [address] [place] [address] Original Ordering Provider: TYRONE HOWELL Generic External Data Provider TREVOR Suzie donatosmita Result Performing Organization Address [facility] Co de Phone Number TREVOR [facility] [address] [place] [phone] * CCF PT PNL PPP (12/22/2024 8:36 AM EDT) CCF PROTHROMBIN TIME 11.0 9.7 - 13.0 sec CCF CCF INR PPP 1.0 0.9 - 1.3 CCF Comment: Vitamin K Antagonist (VKA) Therapeutic Range: INR 2 to 3 (Target INR of 2.5) Note: For patients treated with VKA drugs, such as warfarin, the [place] [employer]icians 2012 Guideline recommends [...] Chest 2012, 141:7S-47S Surinder RA, et al. [facility] 2017, 70: 252-289 12/22/2024 8:36 AM EDT 12/22/2024 9:14 AM EDT Narrative CLINISYNC - 12/22/2024 9:31 AM EDT Specimen Type: BLOOD SPECIMEN Ordering Facility: [facility] Address: [address] [place] [address] Original Ordering Provider: TYRONE HOWELL Generic External Data Provider CLINISYNC F inal Result Performing Organization Address [facility] de Phone Number [employer] Corporation[employer] CC [address] [place] [address] * CCF PHOSPHATE SERPL-MCNC (12/22/2024 8:36 AM EDT) CCF PHOSPHATE SERPL-MCNC 3.3 2.7 - 4.8 mg/dL CCF 12/22/2024 8:36 AM EDT 12/22/2024 8:52 AM EDT Narrative CLINISYNC - 12/22/2024 9:28 AM EDT Specimen Type: BLOOD SPECIMEN Ordering Facility: [facility] Address: [address] [place] [address] Original Ordering Provider: TYRONE HOWELL Generic External Data Provider CLINISYNC F inal Result Performing Organization Address [facility] Co de Phone Number JOSE DAVIDAccountNowNC CC [address] [place] [place] [phone] * MISC SEND OUT TST 1 (12/22/2024 8:36 AM EDT) [facility] CCF TEST 1 CCF Comment:Research CCF TEST RESULTS 1 CCF Comment:Research REFERRAL LAB 1 (DROP-DOWN) CCF Comment:Research 12/22/2024 8:36 AM EDT 12/22/2024 8:38 AM EDT Narrative CLINISYNC - 12/29/2024 9:01 AM EDT Specimen Type: BLOOD SPECIMEN Ordering Facility: [facility] Address: [address] [place] [address] Original Ordering Provider: TYRONE HOWELL Generic External Data Provider JOSE DAVIDISYNC F inal Result Performing Organization Address [facility]/ZIP Co de Phone Number CLINMARGRETNC CC * CCF LIPASE SERPL-CCNC (12/22/2024 8:36 AM EDT) [facility] CCF LIPASE SERPL-CCNC 23 16 - 61 U/L CCF 12/22/2024 8:36 AM EDT 12/22/2024 8:52 AM EDT Narrative CLINISYNC - 12/22/2024 9:28 AM EDT Specimen Type: BLOOD SPECIMEN Ordering Facility: [facility] Address: [address] [place] [address] Original Ordering Provider: TYRONE HOWELL Generic External Data Provider CLINISYNC F inal Result Performing Organization Address City/[facility]/ZIP Co de Phone Number [facility] [address] [place] [address] * (ABNORMAL) [facility]CF DEPRECATED HGB A1C BLD (12/22/2024 8:36 AM EDT) [facility] CCF HBA1C MFR BLD 10.7(H) 4.3 - 5.6 % CCF Comment:[place] Diabetes As sociation guidelines indicate that patients with HgbA1c in the range 5.7-6.4% are at increased risk for development of diabetes, and intervention by lifestyle modification may be beneficial. HgbA1c greater or equal to 6.5% is considered diagnostic of diabetes. CCF EST. AVERAGE GLUCOSE BLD GHB EST-MCNC 260 mg/dL CCF Comment:eAG: (Estimated aver age glucose) is a calculated value from HgbA1c and is sales representative trainee of the average blood glucose level in the last 2-3 month period. 12/22/2024 8:36 AM EDT 12/22/2024 9:56 AM EDT Narrative CLINISYNC - 12/22/2024 5:18 PM EDT Specimen Type: BLOOD SPECIMEN Ordering Facility: [facility] Address: [address] [place] [address] Original Ordering Provider: TYRONE HOWELL Generic External Data Provider CLINISYNC F inal Result Performing Organization Address [facility] de Phone Number [facility] [address] [place] [address] * CCF CK SERPL-CCNC (12/22/2024 8:36 AM EDT) CC CK SERPL-CCNC 55 51 - 298 U/L CCF 12/22/2024 8:36 AM EDT 12/22/2024 8:45 AM EDT Narrative CLINISYNC - 12/22/2024 9:51 AM EDT Specimen Type: BLOOD SPECIMEN Ordering Facility: [facility] Address: [address] [place] [address] Original Ordering Provider: TYRONE HOWELL Generic External Data Provider CLINISYNC F inal Result Performing Organization Address [facility] de Phone Number [facility] [address] [place] [address] * CC CHOLEST SERPL-MCNC (12/22/2024 8:36 AM EDT) CC CHOLEST SERPL-MCNC 185 <200 mg/dL CCF Comment: <200 mg/dL, Desirable 200-239 mg/dL, Borderline high >239 mg/dL, High Reference: 1. National Cholesterol Education Program ATP III Guideline At-A-Glance Quick Desk Reference: National Heart, Lung, and Blood [place]. National Institutes of Health. 2001: NIH Publication No. 01-3305. 12/22/2024 8:36 AM EDT 12/22/2024 8:52 AM EDT Narrative CLINISYNC - 12/22/2024 9:20 AM EDT Specimen Type: BLOOD SPECIMEN Ordering Facility: [facility] Address: [address] [place] [address] Original Ordering Provider: TYRONE HOWELL us Generic External Data Provider TREVOR orozco Result TREVOR [facility] [address] [facility] [address] * (ABNORMAL) CCF CBC W AUTO DIFF [...] EDT Specimen Type: BLOOD SPECIMEN Ordering Facility: [facility] Address: [address] [place] [address] Original Ordering Provider: TYRONE HOWELL us Generic External Data Provider TREVOR F inal Result CLINMARGRETLORETTA [facility] [address] [facility] [place] [address] * CCF BCR/ABL1 P210 %IS PANEL (12/22/2024 8:36 AM EDT) [facility] CCF BCR/ABL1 P210 %IS 0.2815 CCF CCF BCR/ABL1 P210 MR 2.55 CCF 12/22/2024 8:36 AM EDT 12/22/2024 9:56 AM EDT Narrative CLINISYNC - 12/25/2024 12:07 PM EDT Specimen Type: BLOOD SPECIMEN Ordering Facility: [facility] Address: [address] [place] [address] Original Ordering Provider: TYRONE HOWELL us Generic External Data Provider CLINISYNC F inal Result Performing Organization Address [facility] Co de Phone Number [facility] [address] [place] [phone] * CCF APTT PPP (12/22/2024 8:36 AM EDT) CCF APTT PPP 25.8 23.0 - 32.4 sec CCF 12/22/2024 8:36 AM EDT 12/22/2024 9:14 AM EDT Narrative CLINISYNC - 12/22/2024 9:31 AM EDT Specimen Type: BLOOD SPECIMEN Ordering Facility: [facility] Address: [address] [place] [address] Original Ordering Provider: TYRONE HOWELL us Generic External Data Provider CLINISYNC F inal Result Performing Organization Address [facility] de Phone Number [facility] [address] [place] [phone] * CCF AMYLASE SERPL-CCNC (12/22/2024 8:36 AM EDT) CCF AMYLASE SERPL-CCNC 34 30 - 104 U/L CCF 12/22/2024 8:36 AM EDT 12/22/2024 8:52 AM EDT Narrative CLINISYNC - 12/22/2024 9:28 AM EDT Specimen Type: BLOOD SPECIMEN Ordering Facility: [facility] Address: [address] [place] [address] Original Ordering Provider: TYRONE HOWELL us Generic External Data Provider CLINISYNC F inal Result Performing Organization Address City/[facility] Co de Phone Number [facility] [address] [place] [phone] * CCF MAGNESIUM SERPL-MCNC (12/22/2024 8:36 AM EDT) CCF MAGNESIUM SERPL-MCNC 2.0 1.7 - 2.3 mg/dL CCF 12/22/2024 8:36 AM EDT 12/22/2024 8:52 AM EDT Narrative JOSE DAVIDISYNC - 12/22/2024 9:28 AM EDT Specimen Type: BLOOD SPECIMEN Ordering Facility: [facility] Address: [address] [place] [address] Original Ordering Provider: TYRONE HOWELL us Generic External Data Provider TREVOR orozco Result [facility] [address] [place] [address] [place] [address] * (ABNORMAL) CCF COMP METAB 2000 PNL [...] 74 - 99 mg/dL CCF Comment: The [place] Diabetes Association (ADA) provides guidance for cutoff [...] Standards of Medical Care in Diabetes 2016, [place] [employer] Association. Diabetes Care. 2016.39(Suppl 1). CCF [...] 8:52 AM EDT Narrative TREVOR - 12/22/2024 9:24 AM EDT Specimen Type: BLOOD SPECIMEN Ordering Facility: [facility] Address: [address] [place], [place] [id number] Original Ordering Provider: TYRONE HOWELL us Generic External Data Provider TREVOR orozco Result RAFATLORETTA DIMITRI [address] [facility] [address] [place] [phone] from Last 3 Months Insurance [employer] Care Teams Sales Expert Relationship Specialty Start Date End Date Aman Mathias MD PCP - General Family Medicine 04/08/24 Buffy Chung NP Nurse Practitioner Family Medicine 08/07/23
--- OUTSIDE RECORDS SUMMARY | 2025-03-21 11:46 | XMS_ITS | Encounter Summary ---
Author Organization [facility] Address [address] [place] [address] Care Team Providers Care Cocoa Butter Filter Operator Name Role Phone Aman Mathias MD Primary Care Provider [phone] Aman Mathias MD Primary Care Provider [phone] Buffy Chung CARE DIRECTOR Unavailable [phone] Unallocated, Noms Provider Primary Care Provi hal Aman Mathias MD Primary Care Provider [phone] Encounter Details Date Type Department Care Team [...] Visit [facility] [address] [place] [address] Yaniv Thompson NP [address] [place] [address] documented as of this encounter [...] space is maintained. No other significant abnormality. Poultry Grader: CHLOE Transcribe Date/Time: Jun 15 2023 10:32P Dictated by : TAYLOR COORNA MD This examination was interpreted and the report reviewed and electronically signed by: TAYLOR CORONA MD on Jun 15 2023 10:33PM EST [id number] Procedure Note Radiology, Radiologist, - 06/15/2023 * [...] space is maintained. No other significant abnormality. Poultry Grader: PSCB Transcribe Date/Time: Jun 15 2023 10:32P Dictated by : TAYLOR CORONA MD This examination was interpreted and the report reviewed and electronically signed by: TAYLOR CORONA MD on Jun 15 2023 10:33PM EST [id number] us Generic External Data Provider [facility] Final Result documented in this encounter Visit Diagnoses Not on filedocumented in this encounter Care Teams Cocoa Butter Filter Operator Relationship Specialty Start Date End Date Aman Mathias MD PCP - General Family Medicine 11/27/22 08/06/23 Aman Mathias MD PCP - General Family Medicine 08/07/23 03/30/24 Unallocated, Noms Provider, [address] [place] [address] PCP - General Family Medicine 03/31/24 04/07/24 Aman Mathias MD PCP - General Family Medicine 04/08/24 Buffy Chung NP Nurse Practitioner Family Medicine 08/07/23 documented as of this encounter
--- OUTSIDE RECORDS SUMMARY | 2025-03-21 11:47 | XMS_ITS | Encounter Summary ---
Author [facility] Address [id number] [address] [place] [address] Care Team Providers Care Mental Health Unit Lead Psychologist Name Role Phone Buffy Chung APRN-NETEZZA DEVELOPER Primary Care Provider Encounter Details Date Type Department Care Team (Late st Contact Info) Description 08/11/2024 Telephone [facility] [address] [place] [phone] Yuliana Perez RMA Social History Tobacco Use [...] on filedocumented in this encounter Care Teams Mental Health Unit Lead Psychologist Relationship Specialty Start Date End Date Buffy Chung, JEANNIE-NETEZZA DEVELOPER PCP - General Nurse Practitioner 05/19/24 documented as of this encounter
--- OUTSIDE RECORDS SUMMARY | 2025-03-21 11:47 | XMS_ITS | Encounter Summary ---
Author Organization [employer] [facility] Address [id number] [address] [place] [address] Care Team Providers Care Sash Repairer Name Role Phone Buffy Chung APRN-NAIL MAKER Primary Care Provider Reason for Referral * Cardiology (Routine) - Pending Review Specialty Diagnoses / Procedures Referred By Contac t Referred To Contact Cardiology Diagnoses Pain Procedures Non [facility] [place] [address] Phone: tel: fax: Referral ID Status Reason Start Date Expiration Date V isits Requested Visits Authorized [id number] Pending Review 02/02/2025 02/02/2026 1 1 Encounter Details Date Type Department Care Team (Late st Contact Info) Description 02/02/2025 Orders Only [facility] [place] [address] External, Scanning Provider Pain (Primary [...] on file documented as of this encounter Results * Non [facility] (12/22/2024 12:40 PM EDT) us Scanning Provider External CV ECHO ORDERABLES Fi nal Result XCELERA documented in this encounter Visit Diagnoses Diagnosis Pain- Primary Generalized pain documented in this encounter Care Teams Sash Repairer Relationship Specialty Start Date End Date Buffy Chung, JEANNIE-NAIL MAKER PCP - General Nurse Practitioner 05/19/24 documented as of this encounter
--- OUTSIDE RECORDS SUMMARY | 2025-03-21 11:47 | XMS_ITS | Encounter Summary ---
Author Organization [facility] Address [address] [place] [address] Care Team Providers Care Furniture Repair Technician Name Role Phone William Cavazos MD, PhD Unavailable [phone] Karl Gonzalez DO Primary Care Provider Paula Tuttle RN Unavailable UnavailIsrael Armstrong RN Unavailable Unavailable Aman Mathias MD Primary Care Provider [phone] Paula Tuttle RN Unavailable UnavailWilliam Goncalves MD, PhD Unavailable [phone] Aman Mathias MD Primary Care Provider [phone] Buffy Chung CNP Primary Care Provider [phone] Source Comments In the event this information is protected by the Federal Confidentiality of Alcohol and Drug AbusePatient Records regulations: The Federal rules restrict any use of the information to criminally investigate or prosecute any alcohol or drug abuse patient.[facility] Encounter Details Date Type Department Care Team (Late st Contact Info) Description 02/28/2019 Get Medical Advice Hematology/Oncology [address] [place] [address] Shanti Dennis APRN.NAPPER FIXER [address] [place] [address] RE: Upcoming Appointment Question Social History Tobacco [...] 06/08/2025 8:30 AM EST Results Only Main [place] [address] [address] [place] [address] STUDY PT 06/08/2025 9:30 AM EST Visit (SP) Office Hematology/Oncology [address] [place] [address] [place] [address] [place] [address] STUDY PT 06/08/2025 9:30 AM EST Nurse Visit Hematology/Oncology [address] [place] [address] Paula Tuttle, OMISÉS [address] [place] [address] STUDY PT 06/08/2025 9:45 AM EST Procedure Hematology/Oncology [address] [place] [address] EKG TO RESEARCH 06/08/2025 12:30 PM EST Office Visit Vascular Medicine [address] [place] [address] echo to research 09/12/2025 7:00 AM EDT Procedure Cardiology [address] [place] [address] Elevated troponin, history HCM 09/12/2025 7:45 AM EDT Office Visit Preventive Cardiology [address] [place] [address] Collins Beckman MD [address] [place] [address] Elevated troponin, history HCM documented as of this encounter Visit Diagnoses Not on filedocumented in this encounter Care Teams Furniture Repair Technician Relationship Specialty Start Date End Date Karl Gonzalez DO [address] [place] [address] PCP - General Family Medicine 03/12/16 04/30/20 Aman Mathias MD [address] [place] [address] PCP - General Family Medicine 05/01/20 09/02/21 Aman Mathias MD [address] [place] [address] PCP - General Family Medicine 09/03/21 09/14/23 Buffy Chung, INSTRUMENT TECHNICIAN [address] [place] [address] PCP - General Family Medicine 09/15/23 William Cavazos MD, PhD [address] [place] [address] Physician Hematology/Oncology 11/29/14 04/30/20 Paula Tuttle, RN [address] [place] [address] Research Nurse Hematology/Oncology 05/19/17 01/31/20 Israel Hanson, RN Specialty Carpenter Labor Supervisor Hematology/Oncology 03/10/20 04/30/20 Paula Tuttle, RN [address] [place] [address] Research Nurse Hematology/Oncology 06/05/20 [place] [address] [place] [address] Physician Hematology/Oncology 06/05/20 documented as of this encounter
--- OUTSIDE RECORDS SUMMARY | 2025-03-21 11:47 | XMS_ITS | Encounter Summary ---
Author Organization [facility] [place] Address [address] [place] [address] Care Team Providers Care Large Sheetfed Press Operator Name Role Phone William Cavazos MD, PhD Unavailable [phone] Karl Gonzalez DO Primary Care Provider Paula Tuttle RN Unavailable UnavailIsrael Armstrong RN Unavailable Unavailable Aman Mathias MD Primary Care Provider [phone] Paula Tuttle RN Unavailable UnavailWilliam Goncalves MD, PhD Unavailable [phone] Aman Mathias MD Primary Care Provider [phone] Buffy Chung CNP Primary Care Provider [phone] Source Comments In the event this information is protected by the Federal Confidentiality of Alcohol and Drug AbusePatient Records regulations: The Federal rules restrict any use of the information to criminally investigate or prosecute any alcohol or drug abuse patient.[facility] Encounter Details Date Type Department Care Team (Late st Contact Info) Description 03/10/2019 Patient Msg Hematology/Oncology [address] [place] [address] Provider, [facility] 03/22 Social History Tobacco Use Types Packs/Day [...] 06/08/2025 8:30 AM EST Results Only Main [place] [address] [place] [address] STUDY PT 06/08/2025 9:30 AM EST Visit (SP) Office Hematology/Oncology [address] [place] [address] [place] [address] [place] [address] STUDY PT 06/08/2025 9:30 AM EST Nurse Visit Hematology/Oncology [address] [place] [address] Paula Tuttle, MOISÉS [address] [place] [address] STUDY PT 06/08/2025 9:45 AM EST Procedure Hematology/Oncology [address] [place] [address] EKG TO RESEARCH 06/08/2025 12:30 PM EST Office Visit Vascular Medicine [address] [place], [place] [address] echo to research 09/12/2025 7:00 AM EDT Procedure Cardiology [address] [place] [address] Elevated troponin, history HCM 09/12/2025 7:45 AM EDT Office Visit Preventive Cardiology [address] [place] [address] Collins Beckman MD [address] [place] [address] Elevated troponin, history HCM documented as of this encounter Visit Diagnoses Not on filedocumented in this encounter Care Teams Large Sheetfed Press Operator Relationship Specialty Start Date End Date Karl Gonzalez DO [address] [place] [address] PCP - General Family Medicine 03/12/16 04/30/20 Aman Mathias MD [address] [place] [address] PCP - General Family Medicine 05/01/20 09/02/21 Aman Mathias MD [address] [place] [address] PCP - General Family Medicine 09/03/21 09/14/23 Buffy Chung, TOUR NARRATOR [address] [place] [address] PCP - General Family Medicine 09/15/23 William Cavazos MD, PhD [address] [place] [address] Physician Hematology/Oncology 11/29/14 04/30/20 Paula Tuttle, MOISÉS [address] [place] [address] Research Nurse Hematology/Oncology 05/19/17 01/31/20 Israel Hanson RN Specialty Reset Merchandiser Hematology/Oncology 03/10/20 04/30/20 Paula Tuttle, MOISÉS [address] [place] [address] Research Nurse Hematology/Oncology 06/05/20 [place] [address] [place] [address] Physician Hematology/Oncology 06/05/20 documented as of this encounter
--- OUTSIDE RECORDS SUMMARY | 2025-03-21 11:47 | XMS_ITS | Encounter Summary ---
Author Organization [facility] Address [address] [place] [address] Care Team Providers Care Superintendent Maintenance Airports Name Role Phone Buffy Chung PSYCHOLOGICAL OPERATIONS OFFICER Unavailable [phone] Aman Mathias MD Primary Care Provider [phone] Encounter Details Date Type Department Care Team (Latest Contact Info) Description 03/08/2025 Travel Social History Tobacco Use Types Packs/Day [...] Office Visit [facility] [address] [place] [address] Yaniv Thompson NP [address] [place] [address] documented as of this encounter Visit Diagnoses Not on filedocumented in this encounter Care Teams Superintendent Maintenance Airports Relationship Specialty Start Date End Date Aman Mathias MD PCP - General Family Medicine 04/08/24 Buffy Chung NP Nurse Practitioner Family Medicine 08/07/23 documented as of this encounter
--- OUTSIDE RECORDS SUMMARY | 2025-03-21 11:47 | XMS_ITS | Encounter Summary ---
Author Organization [facility] Address [address] [place] [address] Care Team Providers Care Microfilmer Name Role Phone Buffy Chung TEMPORARY OFFICE ASSISTANT Unavailable [phone] Aman Mathias MD Primary Care Provider [phone] Encounter Details Date Type Department Care Team (Latest Contact Info) Description 03/10/2025 Travel Social History Tobacco Use Types Packs/Day [...] [facility] [address] [place] [address] Yaniv Thompson NP [address] [place] [address] documented as of this encounter Visit Diagnoses Not on filedocumented in this encounter Care Teams Microfilmer Relationship Specialty Start Date End Date Aman Mathias MD PCP - General Family Medicine 04/08/24 Buffy Chung NP Nurse Practitioner Family Medicine 08/07/23 documented as of this encounter
--- OUTSIDE RECORDS SUMMARY | 2025-03-21 11:47 | XMS_ITS | Encounter Summary ---
Author Organization [facility] Address [facility][id number] [address] [place] [address] Care Team Providers Care Putty Glazer Name Role Phone Buffy Chung APRN-GLOBAL SUPPLY CHAIN VICE PRESIDENT Primary Care Provider Encounter Details Date Type Department Care Team (Late st Contact Info) Description 11/22/2024 Orders Only [facility] Cardiology [address] [place] [phone] External, Scanning Provider Social History Tobacco Use [...] on file documented as of this encounter Procedures Procedure Name Priority Date/Time Associated Diagnosis Comments UNLISTED GENETIC TEST Routine 11/05/2024 12:56 PM EDT documented in this encounter Results * Unlisted Genetic Test (11/05/2024 12:56 PM EDT) us Scanning Provider External LAB BLOOD ORDERABLES Edited Result - Final MANUALLY TRANSCRIBED RESULTS documented in this encounter Visit Diagnoses Not on filedocumented in this encounter Care Teams Putty Glazer Relationship Specialty Start Date End Date Buffy Chung, COLLECTIONS OFFICER-GLOBAL SUPPLY CHAIN VICE PRESIDENT PCP - General Nurse Practitioner 05/19/24 documented as of this encounter
--- OUTSIDE RECORDS SUMMARY | 2025-03-21 11:47 | XMS_ITS | Encounter Summary ---
Author Organization [facility] Address [address] [place] [address] Care Team Providers Care Mirror Fabrication Supervisor Name Role Phone Buffy Chung NP Unavailable [phone] Aman Mathias MD Primary Care Provider [phone] Encounter Details Date Type Department Care Team (Late st Contact Info) Description 03/08/2025 Bamboo flowsheet [facility] [place] [address] [place] [address] Melisa Rocha PTA [address] [place] [address] Social History Tobacco Use Types Packs/Day Years [...] [facility] [address] [place] [address] Yaniv Thompson NP [address] [place], [place] [phone] documented as of this encounter Visit Diagnoses Not on filedocumented in this encounter Care Teams Mirror Fabrication Supervisor Relationship Specialty Start Date End Date Aman Mathias MD PCP - General Family Medicine 04/08/24 Buffy Chung NP Nurse Practitioner Family Medicine 08/07/23 documented as of this encounter
--- OUTSIDE RECORDS SUMMARY | 2025-03-21 11:47 | XMS_ITS | Encounter Summary ---
Author Organization [facility] Address [facility] [place] [address] Care Team Providers Care Payroll Professional Name Role Phone Aman Mathias MD Primary Care Provider [phone] Paula Tuttle RN Unavailable [facility] William Clemons MD, PhD Unavailable [phone] Aman Mathias MD Primary Care Provider [phone] Buffy Chung CNP Primary Care Provider [phone] Source Comments In the event this information is protected by the Federal Confidentiality of Alcohol and Drug AbusePatient Records regulations: The Federal rules restrict any use of the information to criminally investigate or prosecute any alcohol or drug abuse patient.[facility] Encounter Details Date Type Department Care Team (Late st Contact Info) Description 12/13/2020 Patient Msg [facility] [address] [place] [address] Provider, [facility] Pre procedure instructions 12/22 Social [...] N ot on file 05/15/2020 Data from: https://www.neighborhoodatlas.medicine.[facility]/. Last address used for calculation Not [...] 06/08/2025 8:30 AM EST Results Only Main [place] [address] [address] [place] [address] STUDY PT 06/08/2025 9:30 AM EST Visit (SP) Office Hematology/Oncology [address] [place] [address] [place] [address] [place] [address] STUDY PT 06/08/2025 9:30 AM EST Nurse Visit Hematology/Oncology [address] [place] [address] Paula Tuttle, MOISÉS [address] [place] [address] STUDY PT 06/08/2025 9:45 AM EST Procedure Hematology/Oncology [address] [place] [address] EKG TO RESEARCH 06/08/2025 12:30 PM EST Office Visit Vascular Medicine [address] [place] [address] echo to research 09/12/2025 7:00 AM EDT Procedure Cardiology [address] [place] [address] Elevated troponin, history HCM 09/12/2025 7:45 AM EDT Office Visit Preventive Cardiology [address] [place] [address] Collins Beckman MD [address] [place] [phone] Elevated troponin, history HCM documented as of this encounter Visit Diagnoses Not on filedocumented in this encounter Care Teams Payroll Professional Relationship Specialty Start Date End Date Aman Mathias MD [address] [place] [address] PCP - General Family Medicine 05/01/20 09/02/21 Aman Mathias MD [address] [place] [address] PCP - General Family Medicine 09/03/21 09/14/23 Buffy Chung, METAL ORGAN PIPE MAKER [address] [place] [address] PCP - General Family Medicine 09/15/23 Paula Tuttle, RN [address] [place] [address] Research Nurse Hematology/Oncology 06/05/20 [place] [address] [place], [place] [phone] Physician Hematology/Oncology 06/05/20 documented as of this encounter
--- OUTSIDE RECORDS SUMMARY | 2025-03-21 11:47 | XMS_ITS | Encounter Summary ---
Author Organization [facility] Address [address] [place] [address] Care Team Providers Care Special Education Para Professional Name Role Phone Aman Mathias MD Primary Care Provider [phone] Paula Tuttle RN Unavailable [facility] William Clemons MD, PhD Unavailable [phone] Aman Mathias MD Primary Care Provider [phone] Buffy Chung CNP Primary Care Provider [phone] Source Comments In the event this information is protected by the Federal Confidentiality of Alcohol and Drug AbusePatient Records regulations: The Federal rules restrict any use of the information to criminally investigate or prosecute any alcohol or drug abuse patient.[facility] Encounter Details Date Type Department Care Team (Late st Contact Info) Description 12/27/2020 Patient Msg Dermatology and Plastics [place] [address] [place] [address] Provider, [facility] Scheduled Apppointment in Dermatology Social [...] N ot on file 05/15/2020 Data from: https://www.neighborhoodatlas.medicine.[facility]/. Last address used for calculation [...] 06/08/2025 8:30 AM EST Results Only Main [place] [address] [address] [place] [address] STUDY PT 06/08/2025 9:30 AM EST Visit (SP) Office Hematology/Oncology [address] [place] [address] [place] [address] [place] [address] STUDY PT 06/08/2025 9:30 AM EST Nurse Visit Hematology/Oncology [address] [place] [address] Paula Tuttle, RN [address] [place] [address] STUDY PT 06/08/2025 9:45 AM EST Procedure Hematology/Oncology [address] [place] [address] EKG TO RESEARCH 06/08/2025 12:30 PM EST Office Visit Vascular Medicine [address] [place] [address] echo to research 09/12/2025 7:00 AM EDT Procedure Cardiology [address] [place] [address] Elevated troponin, history HCM 09/12/2025 7:45 AM EDT Office Visit Preventive Cardiology [address] [place] [address] Collins Beckman MD [address] [place] [address] Elevated troponin, history HCM documented as of this encounter Visit Diagnoses Not on filedocumented in this encounter Care Teams Special Education Para Professional Relationship Specialty Start Date End Date Aman Mathias MD [address] [place] [address] PCP - General Family Medicine 05/01/20 09/02/21 Aman Mathias MD [address] [place] [address] PCP - General Family Medicine 09/03/21 09/14/23 Buffy Chung, VACCINE MANAGER [address] [place] [address] PCP - General Family Medicine 09/15/23 Paula Tuttle, RN [address] [place] [address] Research Nurse Hematology/Oncology 06/05/20 [place] [address] [place] [address] Physician Hematology/Oncology 06/05/20 documented as of this encounter
--- OUTSIDE RECORDS SUMMARY | 2025-03-21 11:47 | XMS_ITS | Encounter Summary ---
Author Organization [facility] Address [id number] [address] [place] [address] Care Team Providers Care Mangle Operator Garments Name Role Phone Buffy Chung APRN-STAFF DEVELOPMENT COORDINATOR RN Primary Care Provider Encounter Details Date Type Department Care Team (Late st Contact Info) Description 04/29/2023 Telephone [facility] Cardiology [address] [place] [address] Connie Loza Social History Tobacco [...] on filedocumented in this encounter Care Teams Mangle Operator Garments Relationship Specialty Start Date End Date Buffy Chung, DIAMOND DRILLER-STAFF DEVELOPMENT COORDINATOR RN PCP - General Nurse Practitioner 05/19/24 documented as of this encounter
--- OUTSIDE RECORDS SUMMARY | 2025-03-21 11:47 | XMS_ITS | Encounter Summary ---
Author Organization [facility] Address [address] [place] [address] Care Team Providers Care Last Marker Name Role Phone William Cavazos MD, PhD Unavailable [phone] Karl Gonzalezard Primary Care Provider Paula Tuttle RN Unavailable UnavailIsrael Armstrong RN Unavailable Unavailable Aman Mathias MD Primary Care Provider [phone] Paula Tuttle RN Unavailable UnavailWilliam Goncalves MD, PhD Unavailable [phone] Aman Mathias MD Primary Care Provider [phone] Buffy Chung CNP Primary Care Provider [phone] Source Comments In the event this information is protected by the Federal Confidentiality of Alcohol and Drug AbusePatient Records regulations: The Federal rules restrict any use of the information to criminally investigate or prosecute any alcohol or drug abuse patient.[facility] Reason for Visit * Reason Comments Radiology CT Encounter Details Date Type Department Care Team (Late st Contact Info) Description 05/03/2019 Radiology Radiology [address] [address] Karl Gonzalez, [address] [facility] [place] [address] Social History Tobacco Use Types [...] 06/08/2025 8:30 AM EST Results Only Main [place] [address] [address] [place] [address] STUDY PT 06/08/2025 9:30 AM EST Visit (SP) Office Hematology/Oncology [address] [place] [address] William aCvazos MD, PhD [id number] [place] [address] STUDY PT 06/08/2025 9:30 AM EST Nurse Visit Hematology/Oncology [address] [place] [address] Paula Tuttle, MOISÉS [address] [place] [address] STUDY PT 06/08/2025 9:45 AM EST Procedure Hematology/Oncology [address] [place] [address] EKG TO RESEARCH 06/08/2025 12:30 PM EST Office Visit Vascular Medicine [address] [place] [address] echo to research 09/12/2025 7:00 AM EDT Procedure Cardiology [address] [place] [address] Elevated troponin, history HCM 09/12/2025 7:45 AM EDT Office Visit Preventive Cardiology [address] [place] [address] Collins Beckman MD [address]00 [place] [address] Elevated troponin, history HCM documented as of this encounter Visit Diagnoses Not on filedocumented in this encounter Care Teams Last Marker Relationship Specialty Start Date End Date CarlosKarl DO Shar [address] [place] [address] PCP - General Family Medicine 03/12/16 04/30/20 Aman Mathias MD [address] [place] [address] PCP - General Family Medicine 05/01/20 09/02/21 Aman Mathias MD [address] [place] [address] PCP - General Family Medicine 09/03/21 09/14/23 Buffy Chung, CANVAS REPAIRER [address] [place] [address] PCP - General Family Medicine 09/15/23 William Cavazos MD, PhD [address]00 [place] [address] Physician Hematology/Oncology 11/29/14 04/30/20 Paula Tuttle, MOISÉS [address] [place] [address] Research Nurse Hematology/Oncology 05/19/17 01/31/20 Israel Hanson, RN Specialty Physical Meteorologist Hematology/Oncology 03/10/20 04/30/20 Paula Tuttle, RN [address]60 [place] [address] Research Nurse Hematology/Oncology 06/05/20 [place] [address] [place] [address] Physician Hematology/Oncology 06/05/20 documented as of this encounter
--- OUTSIDE RECORDS SUMMARY | 2025-03-21 11:47 | XMS_ITS | Encounter Summary ---
Author Organization [facility] Address [address] [place] [address] Care Team Providers Care Skin Lap Bonder Name Role Phone Buffy Chung NP Unavailable [phone] Aman Mathias MD Primary Care Provider [phone] Encounter Details Date Type Department Care Team (Late st Contact Info) Description 03/10/2025 Bamboo flowsheet [place] [facility] [address] [place] [address] Jason Elizabeth, PT [address] [place], [place] [phone] Social History Tobacco Use Types Packs/Day Years [...] MIGUEL [facility]NGEL [facility] [address] [place] [address] Yaniv Thompsno, DIRECTOR OF MARKETING OPERATIONS [address] [place], [place] [phone] documented as of this encounter Visit Diagnoses Not on filedocumented in this encounter Care Teams Skin Lap Bonder Relationship Specialty Start Date End Date Aman Mathias MD PCP - General Family Medicine 04/08/24 Buffy Chung NP Nurse Practitioner Family Medicine 08/07/23 documented as of this encounter
--- OUTSIDE RECORDS SUMMARY | 2025-03-21 11:47 | XMS_ITS | Encounter Summary ---
Author Organization [facility] Address [address] [place] [address] Care Team Providers Care Pile Header Name Role Phone Paula Tuttle RN Unavailable UnavailWilliam Goncalves MD, PhD Unavailable [phone] Aman Mathias MD Primary Care Provider [phone] Buffy Chung CNP Primary Care Provider [phone] Source Comments In the event this information is protected by the Federal Confidentiality of Alcohol and Drug AbusePatient Records regulations: The Federal rules restrict any use of the information to criminally investigate or prosecute any alcohol or drug abuse patient.[facility] Encounter Details Date Type Department Care Team (Late st Contact Info) Description 04/11/2023 Patient Msg Angio [address] [place] [address] Provider, Ccf Pre-Procedural Instructions Social History Tobacco [...] is lower risk 7 10/15/2022 Data from: https://www.neighborhoodatlas.medicine.[facility]/. Last address used for calculation [address] [...] 06/08/2025 8:30 AM EST Results Only Main [place] [address] [address] [place] [address] STUDY PT 06/08/2025 9:30 AM EST Visit (SP) Office Hematology/Oncology [address] [place] [address] [place] [address] [place] [address] STUDY PT 06/08/2025 9:30 AM EST Nurse Visit Hematology/Oncology [address] [place] [address] Paula Tuttle RN [address] [place] [address] STUDY PT 06/08/2025 9:45 AM EST Procedure Hematology/Oncology [address] [place] [address] EKG TO RESEARCH 06/08/2025 12:30 PM EST Office Visit Vascular Medicine [address] [place] 7359506 echo to research 09/12/2025 7:00 AM EDT Procedure Cardiology [address] [place], [place] [address] Elevated troponin, history HCM 09/12/2025 7:45 AM EDT Office Visit Preventive Cardiology [address] [place] [address] Collins Beckman MD [address] [place] 7359595 Elevated troponin, history HCM documented as of this encounter Visit Diagnoses Not on filedocumented in this encounter Care Teams Pile Header Relationship Specialty Start Date End Date Aman Mathias MD [address] [place] [address] PCP - General Family Medicine 09/03/21 09/14/23 Buffy Chung, INSPECTOR ADVANCED COMPOSITE [address] [place] [address] PCP - General Family Medicine 09/15/23 Paula Tuttle RN [address] [place] [address] Research Nurse Hematology/Oncology 06/05/20 [place] [address] [place] 0153406 Physician Hematology/Oncology 06/05/20 documented as of this encounter
--- OUTSIDE RECORDS SUMMARY | 2025-03-21 11:47 | XMS_ITS | Encounter Summary ---
Author Organization [employer] Address [id number] [address] [place] [address] Care Team Providers Care Retail Account Manager Name Role Phone Buffy Chung APRN-LAP GRINDER Primary Care Provider Reason for Referral * Cardiology (Routine) - Closed Specialty Diagnoses / Procedures Referred By Contac t Referred To Contact Cardiology Diagnoses Pain Procedures Non [facility] [address] [place] [phone] Phone: tel: fax: Referral ID Status Reason Start Date Expiration Date Visits Re quested Visits Authorized [id number] Closed 10/29/2023 10/28/2024 1 1 Encounter Details Date Type Department Care Team (Late st Contact Info) Description 10/29/2023 Orders Only [facility] [address] [place] [phone] Transcribe, Orders Support User Pain (Primary [...] pain documented in this encounter Care Teams Retail Account Manager Relationship Specialty Start Date End Date Buffy Chung, JEANNIE-LAP GRINDER PCP - General Nurse Practitioner 05/19/24 documented as of this encounter
--- OUTSIDE RECORDS SUMMARY | 2025-03-21 11:47 | XMS_ITS | Encounter Summary ---
Author Organization [facility] Address [address] [place] [address] Care Team Providers Care Flame Hardener Name Role Phone Buffy Chung FIRE LOSS PREVENTION ENGINEER Unavailable [phone] Aman Mathias MD Primary Care Provider [phone] Encounter Details Date Type Department Care Team (Latest Contact Info) Description 03/15/2025 Travel Social History Tobacco Use Types Packs/Day [...] MIGUEL ÁNGEL [facility] [address] [place] [phone] Yaniv Thompson NP [address] [place] [address] documented as of this encounter Visit Diagnoses Not on filedocumented in this encounter Care Teams Flame Hardener Relationship Specialty Start Date End Date Aman Mathias MD PCP - General Family Medicine 04/08/24 Buffy Chung NP Nurse Practitioner Family Medicine 08/07/23 documented as of this encounter
--- OUTSIDE RECORDS SUMMARY | 2025-03-21 11:47 | XMS_ITS | Encounter Summary ---
Author Organization [facility] Address [id number] [address] [place] [address] Care Team Providers Care Information Security Risk Analyst Name Role Phone Buffy Chung APRN-SCOREBOARD OPERATOR Primary Care Provider Encounter Details Date Type Department Care Team (Late st Contact Info) Description 10/21/2024 Orders Only [facility] [address] [place] [phone] External, Scanning Provider Social History Tobacco Use [...] filedocumented in this encounter Care Teams Information Security Risk Analyst Relationship Specialty Start Date End Date Buffy Chung, CAUSTIC LIQUOR MAKER-SCOREBOARD OPERATOR PCP - General Nurse Practitioner 05/19/24 documented as of this encounter
--- OUTSIDE RECORDS SUMMARY | 2025-03-21 11:48 | XMS_ITS | Encounter Summary ---
Author Organization [facility] Address [address] [place] [address] Care Team Providers Care Airport Attendant Name Role Phone Paula Tuttle RN Unavailable Unavailpeacehealth William Clemons MD, PhD Unavailable [phone] Aman Mathias MD Primary Care Provider [phone] Buffy Chung CNP Primary Care Provider [phone] Source Comments In the event this information is protected by the Federal Confidentiality of Alcohol and Drug AbusePatient Records regulations: The Federal rules restrict any use of the information to criminally investigate or prosecute any alcohol or drug abuse patient.[facility] Reason for Visit * Reason Comments Research Reconsent for ACTG Encounter Details Date Type Department Care Team (Late st Contact Info) Description 08/05/2022 Abstract Hematology/Oncology [address] [place] [address] Ludy Kolb RN [address] [place], [place] [phone] Research (Reconsent for ACTG ) Social History [...] N ot on file 06/24/2022 Data from: https://www.neighborhoodatlas.medicine.[facility]/. Last address used for calculation [address] [...] 06/08/2025 8:30 AM EST Results Only Main [place] [address] [address] [place] [address] STUDY PT 06/08/2025 9:30 AM EST Visit (SP) Office Hematology/Oncology [address] [place] [address] [place] [address] [place] [address] STUDY PT 06/08/2025 9:30 AM EST Nurse Visit Hematology/Oncology [address] [place] [address] Paula Tuttle RN [address] [place] [address] STUDY PT 06/08/2025 9:45 AM EST Procedure Hematology/Oncology [address] [place] [address] EKG TO RESEARCH 06/08/2025 12:30 PM EST Office Visit Vascular Medicine [address] [place] [address] echo to research 09/12/2025 7:00 AM EDT Procedure Cardiology [address] [place] [address] Elevated troponin, history HCM 09/12/2025 7:45 AM EDT Office Visit Preventive Cardiology [address] [place] [address] Collins Beckman MD [address] [place] [address] Elevated troponin, history HCM documented as of this encounter Visit Diagnoses Not on filedocumented in this encounter Care Teams Airport Attendant Relationship Specialty Start Date End Date Aman Mathias MD [address] [place] [address] PCP - General Family Medicine 09/03/21 09/14/23 Buffy Chung, REHABILITATION COUNSELOR [address] [place] [address] PCP - General Family Medicine 09/15/23 Paula Tuttle, RN [address] [place] [address] Research Nurse Hematology/Oncology 06/05/20 [place] [address] [place] [address] Physician Hematology/Oncology 06/05/20 documented as of this encounter
--- OUTSIDE RECORDS SUMMARY | 2025-03-21 11:48 | XMS_ITS | Encounter Summary ---
Author Organization [facility] Address [address] [place] [address] Care Team Providers Care Certified Cytotechnologist Name Role Phone Paula Tuttle RN Unavailable UnavailWilliam Goncalves MD, PhD Unavailable [phone] Aman Mathias MD Primary Care Provider [phone] Buffy Chung CNP Primary Care Provider [phone] Source Comments In the event this information is protected by the Federal Confidentiality of Alcohol and Drug AbusePatient Records regulations: The Federal rules restrict any use of the information to criminally investigate or prosecute any alcohol or drug abuse patient.[facility] Encounter Details Date Type Department Care Team (Late st Contact Info) Description 05/13/2022 Patient Msg Angio [address] [place] [address] Provider, Ccf Pre procedure instructions Social History [...] N ot on file 11/26/2021 Data from: https://www.neighborhoodatlas.medicine.[facility]/. Last address used for calculation [...] 06/08/2025 8:30 AM EST Results Only Main [facility] [address] [address] [place] [address] STUDY PT 06/08/2025 9:30 AM EST Visit (SP) Office Hematology/Oncology [address] [place] [address] William Cavaozs MD, PhD [id number] [place] [address] STUDY PT 06/08/2025 9:30 AM EST Nurse Visit Hematology/Oncology [address] [place] [address] Paula Tuttle, MOISÉS [address] [place] [address] STUDY PT 06/08/2025 9:45 AM EST Procedure Hematology/Oncology [address] [place] [address] EKG TO RESEARCH 06/08/2025 12:30 PM EST Office Visit Vascular Medicine [address] [place] [address] echo to research 09/12/2025 7:00 AM EDT Procedure Cardiology [address] [place] [address] Elevated troponin, history HCM 09/12/2025 7:45 AM EDT Office Visit Preventive Cardiology [address] [place] [address] Collins Beckman MD [address] [place] [address] Elevated troponin, history HCM documented as of this encounter Visit Diagnoses Not on filedocumented in this encounter Care Teams Certified Cytotechnologist Relationship Specialty Start Date End Date Aman Mathias MD [address] [place] [address] PCP - General Family Medicine 09/03/21 09/14/23 Buffy Chung, INSIDE SALES EXECUTIVE [address] [place] [address] PCP - General Family Medicine 09/15/23 Paula Tuttle, RN [address] [place] [address] Research Nurse Hematology/Oncology 06/05/20 [place] [address] [address] [place], [place] [phone] Physician Hematology/Oncology 06/05/20 documented as of this encounter
--- OUTSIDE RECORDS SUMMARY | 2025-03-21 11:48 | XMS_ITS | Encounter Summary ---
Author Organization [facility] Address [address] [place] [address] Care Team Providers Care Aircraft Ordnance Systems Mechanic Name Role Phone William Cavazos MD, PhD Unavailable [phone] Karl Gonzalez DO Primary Care Provider Paula Tuttle RN Unavailable UnavailIsrael Armstrong RN Unavailable Unavailable Aman Mathias MD Primary Care Provider [phone] Paula Tuttle RN Unavailable UnavailWilliam Goncalves MD, PhD Unavailable [phone] Aman Mathias MD Primary Care Provider [phone] Buffy Chung CNP Primary Care Provider [phone] Source Comments In the event this information is protected by the Federal Confidentiality of Alcohol and Drug AbusePatient Records regulations: The Federal rules restrict any use of the information to criminally investigate or prosecute any alcohol or drug abuse patient.[facility] Encounter Details Date Type Department Care Team (Late st Contact Info) Description 09/26/2017 Patient Msg Medical Records [address] [place] [address] Provider, Ccf Vitamin D Social History Tobacco Use Types [...] 06/08/2025 8:30 AM EST Results Only Main [place] [address] [address] [place] [address] STUDY PT 06/08/2025 9:30 AM EST Visit (SP) Office Hematology/Oncology [address] [place] [address] [place] [address] [place] [address] STUDY PT 06/08/2025 9:30 AM EST Nurse Visit Hematology/Oncology [address] [place] [address] Paula Tuttle, RN [address] [place] [address] STUDY PT 06/08/2025 9:45 AM EST Procedure Hematology/Oncology [address] [place] [address] EKG TO RESEARCH 06/08/2025 12:30 PM EST Office Visit Vascular Medicine 9[address] [place] [address] echo to research 09/12/2025 7:00 AM EDT Procedure Cardiology [address] [place] [address] Elevated troponin, history HCM 09/12/2025 7:45 AM EDT Office Visit Preventive Cardiology [address] [place] [address] Collins Beckman MD [address] [place] [address] Elevated troponin, history HCM documented as of this encounter Visit Diagnoses Not on filedocumented in this encounter Care Teams Aircraft Ordnance Systems Mechanic Relationship Specialty Start Date End Date RaghuyenniKarl aritaDO [address] [place] [address] PCP - General Family Medicine 03/12/16 04/30/20 Aman Mathias MD [address] [place] [address] PCP - General Family Medicine 05/01/20 09/02/21 Aman Mathias MD [address] [place] [address] PCP - General Family Medicine 09/03/21 09/14/23 Buffy Chung, SECURITY ASSOCIATE [address] [place] [address] PCP - General Family Medicine 09/15/23 William Cavazos MD, PhD [address] [place] [address] Physician Hematology/Oncology 11/29/14 04/30/20 Paula Tuttle, MOISÉS [address] [place] [address] Research Nurse Hematology/Oncology 05/19/17 01/31/20 Israel Hanson, RN Specialty Plant Buyer Hematology/Oncology 03/10/20 04/30/20 Paula Tuttle, MOISÉS [address] [place] [address] Research Nurse Hematology/Oncology 06/05/20 [place] [address] [place] [address] Physician Hematology/Oncology 06/05/20 documented as of this encounter
--- OUTSIDE RECORDS SUMMARY | 2025-03-21 11:48 | XMS_ITS | Encounter Summary ---
Author Organization [facility] Address [address] [place] [address] Care Team Providers Care Loss Prevention Agent Name Role Phone Paula Tuttle RN Unavailable UnavailWilliam Goncalves MD, PhD Unavailable [phone] Buffy Chung CNP Primary Care Provider [phone] Source Comments In the event this information is protected by the Federal Confidentiality of Alcohol and Drug AbusePatient Records regulations: The Federal rules restrict any use of the information to criminally investigate or prosecute any alcohol or drug abuse patient.[facility] Encounter Details Date Type Department Care Team (Latest Contact Info) Description 03/16/2025 Travel Social History Tobacco Use Types Packs/Day [...] is lower risk 9 09/09/2024 Data from: https://www.neighborhoodatlas.[facility]/. Last address used for calculation Daniel MCINTYRE [...] 06/08/2025 8:30 AM EST Results Only Main [place] [address] [address] [place] [address] STUDY PT 06/08/2025 9:30 AM EST Visit (SP) Office Hematology/Oncology [address] [place] [address] [place] [address] [place] [address] STUDY PT 06/08/2025 9:30 AM EST Nurse Visit Hematology/Oncology [address] [place] [phone] Paula Tuttle RN [address]00 [place] [address] STUDY PT 06/08/2025 9:45 AM EST Procedure Hematology/Oncology [address] [place] [phone] EKG TO RESEARCH 06/08/2025 12:30 PM EST Office Visit Vascular Medicine [address] [place] [phone] echo to research 09/12/2025 7:00 AM EDT Procedure Cardiology [address] [place], [place] [address] Elevated troponin, history HCM 09/12/2025 7:45 AM EDT Office Visit Preventive Cardiology [address] [place], [place] [address] Collins Beckman MD [address] [place] [phone] Elevated troponin, history HCM documented as of this encounter Visit Diagnoses Not on filedocumented in this encounter Care Teams Loss Prevention Agent Relationship Specialty Start Date End Date Buffy Chung, HOUSEHOLD APPLIANCES SERVICE TECHNICIAN [address] [place] [address] PCP - General Family Medicine 09/15/23 Paula Tuttle, MOISÉS [address] [place] [address] Research Nurse Hematology/Oncology 06/05/20 [place] [address] [place] [phone] Physician Hematology/Oncology 06/05/20 documented as of this encounter
--- OUTSIDE RECORDS SUMMARY | 2025-03-21 11:48 | XMS_ITS | Encounter Summary ---
Author Organization [facility] Address [address] [place] [address] Care Team Providers Care Transfer Specialist Name Role Phone Paula Tuttle RN Unavailable UnavailWilliam Goncalves MD, PhD Unavailable [phone] Buffy Chung CNP Primary Care Provider [phone] Source Comments In the event this information is protected by the Federal Confidentiality of Alcohol and Drug AbusePatient Records regulations: The Federal rules restrict any use of the information to criminally investigate or prosecute any alcohol or drug abuse patient.[facility] Encounter Details Date Type Department Care Team (Late st Contact Info) Description 03/17/2025 Orders Only Hematology/Oncology [address] [place] [address] [place] [address] [place], [place] [phone] CML (chronic myeloid leukemia) (HCC) (Primary Dx) [...] is lower risk 9 09/09/2024 Data from: https://www.neighborhoodatlas.medicine.[facility]/. Last address used for calculation Daniel [...] 06/08/2025 8:30 AM EST Results Only Main [place] [address] [place] [address] STUDY PT 06/08/2025 9:30 AM EST Visit (SP) Office Hematology/Oncology [address] [place] [address] [place] [address] [place] [address] STUDY PT 06/08/2025 9:30 AM EST Nurse Visit Hematology/Oncology [address] [place] [address] Paula Tuttle, MOISÉS [address]60 [place] [address] STUDY PT 06/08/2025 9:45 AM EST Procedure Hematology/Oncology [address] [place] [address] EKG TO RESEARCH 06/08/2025 12:30 PM EST Office Visit Vascular Medicine [address] [place] [address] echo to research 09/12/2025 7:00 AM EDT Procedure Cardiology [address] [place] [address] Elevated troponin, history HCM 09/12/2025 7:45 AM EDT Office Visit Preventive Cardiology [address] [place] [address] Collins Beckman MD [address]509 [place] [address] Elevated troponin, history HCM documented as of this encounter Visit Diagnoses Diagnosis CML (chronic myeloid leukemia) (HCC)- Primary Chronic myeloid leukemia, without mention of having achieved remission documented in this encounter Care Teams Transfer Specialist Relationship Specialty Start Date End Date Buffy Chung, SANDER OPERATOR [facility] [place] [address] PCP - General Family Medicine 09/15/23 Paula Tuttle, MOISÉS [address] [place] [address] Research Nurse Hematology/Oncology 06/05/20 [place] [address] [place] [address] Physician Hematology/Oncology 06/05/20 documented as of this encounter
--- OUTSIDE RECORDS SUMMARY | 2025-03-21 11:48 | XMS_ITS | Clinical Summary ---
Author Organization [facility] Address [address] [place] [address] Care Team Providers Care Mattress Maker Name Role Phone Paula Tuttle RN Unavailable UnavailWilliam Goncalves MD, PhD Unavailable [phone] Buffy Chung CNP Primary Care Provider [phone] Allergies Active Allergy Reactions Criticality Noted Date [...] Encounters Date Type Department Care Team Description 03/18/2025 8:25 AM EDT - 03/18/2025 9:29 AM EDT Surgery Angio [address] [id number] Shaggy Kaur MD DIAGNOSTIC BONE MARROW BIOPSY(IES) AND ASPIRATION(S) 03/18/2025 6:05 AM EDT - 03/18/2025 10:47 AM EDT Hospital Encounter HOSP MAIN FB36 [address] [place] [address] Stanley Guevara MD 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] Discharge Disposition: Home 03/18/2025 Orders Only [place]ematology/[place]olog y [address] [place] [address] William Howell MD, PhD CML (chronic myeloid leukemia) (HCC) (Primary Dx) 03/17/2025 Patient [facility] Emergency Department [address] [place] [address] Provider, Ccf Follow Up Appointment - Cardiology 03/17/2025 Orders Only Hematology/Oncolog y [address] [place] [address] William Howell MD, PhD CML (chronic myeloid leukemia) (HCC) (Primary Dx) 03/16/2025 11:18 AM EDT - 03/16/2025 3:23 PM EDT Emergency [facility] Emergency Department [address] [place] [address] Lars Reinoso MD elevated trop Discharge Disposition: Home 03/16/2025 10:00 AM EDT Visit (SP) Office Hematology/Oncolog y [address] [place] [address] William Howell MD, PhD 03/16/2025 10:00 AM EDT Nurse Visit Hematology/Oncolog y [address] [place] [address] Paula Tuttle, MOISÉS CML (chronic myeloid leukemia) (HCC) (Primary Dx) 03/16/2025 Travel 03/11/2025 Patient Msg Angio [address] [place] [address] Provider, Ccf Pre procedure instructions 03/1803/02/2025 Travel 03/02/2025 Orders Only Hematology/[place]olog y [address] [place] [address] William Howell MD, PhD CML (chronic myeloid leukemia) (HCC) (Primary Dx) 02/28/2025 Orders Only Hematology/Oncolog y [address] [place] [address] William Howell MD, PhD CML (chronic myeloid leukemia) (HCC) (Primary Dx) 02/28/2025 Orders Only Hematology/Oncolog y [address] [place] [address] William Howell MD, PhD CML (chronic myeloid leukemia) (HCC) (Primary Dx) 02/18/2025 Telephone Hematology/Oncolog y [address] [place] [address] Kathie Rob MD Biopsy Request 02/18/2025 Orders Only Hematology/[place] y [address] [place] [address] Kathie Rob MD CML (chronic myeloid leukemia) (HCC) (Primary Dx) 12/22/2024 9:00 AM EDT Nurse Visit Hematology/Oncolog y [address] [place] [address] Teresa Pierce RN CML (chronic myeloid leukemia) (HCC) (Primary Dx) 12/22/2024 9:00 AM EDT Visit (SP) Office Hematology/Oncolog y [address] [place] [address] William Howell MD, PhD CML (chronic myelocytic leukemia) (HCC) (Primary Dx) 12/22/2024 Orders Only Hematology/Oncolog y [address] [place] [address] William Howell MD, PhD 12/22/2024 Orders Only Hematology/[place]olog y [address] [place] [address] William Howell MD, PhD CML (chronic myeloid leukemia) (HCC) (Primary Dx) 12/22/2024 Abstract Hematology/Oncolog y [address] [place] [address] Tarah Harrington, Research Coordinator Research ([id number] / [id number] / [id number]) 12/22/2024 Travel from Last 3 Months Immunizations Immunization Administration Dates Next Due COVID-19 original vaccine, a ge 12+ yr, monovalent ([id number] - PURPLE TOP) 09/19/2020,08/29/2020 influenza (IIV3) vaccine, tr ivalent, PF (AFLURIA, FLUARIX, FLULAVAL, FLUVIRIN, FLUZONE) 07/19/2016 influenza (IIV4) vaccine, ag e 6 mo - 64 yr, quadrivalent, PF (AFLURIA, FLUARIX, FLULAVAL, FLUZONE) 04/21/2018,05/21/2017 influenza (LAIV) vaccine, na rl, unspecified formulation 05/20/2017 novel influenza (W3K5-13) vaccine, PF 07/13/2009 pneumococcal conjugate (PCV1 3) [...] is lower risk 9 09/09/2024 Data from: https://www.neighborhoodatlas.[email or web address].edu/. Last address used for calculation Daniel MCINTYRE [...] oz) 03/16/2025 11:35 A M EDT Height 177.8 cm (5' 10 ) 09/15/2024 10:36 AM EDT Body Mass Index 37.33 09/15/2024 10:36 AM EDT Plan of Treatment Upcoming Encounters Date Type Department Care Team (Latest Contact Info) Description 06/08/2025 8:30 AM EST Results Only Main [place] [address] [address] [place] [address] STUDY PT 06/08/2025 9:30 AM EST Visit (SP) Office Hematology/Oncology [address] [place] [address] [place] [address] [place] [address] STUDY PT 06/08/2025 9:30 AM EST Nurse Visit Hematology/Oncology [address] [place] [address] Paula Tuttle, RN [address] [place] [address] STUDY PT 06/08/2025 9:45 AM EST Procedure Hematology/Oncology [address] [place] [address] EKG TO RESEARCH 06/08/2025 12:30 PM EST Office Visit Vascular Medicine [address] [place] [address] echo to research 09/12/2025 7:00 AM EDT Procedure Cardiology [address] [id number] Elevated troponin, history HCM 09/12/2025 7:45 AM EDT Office Visit Preventive Cardiology [address] [id number] Collins Beckman MD [address] [place] [address] Elevated troponin, history HCM Health Maintenance Due Date Last Done Comments [...] 07/15/2017 05/20/2017 Dilated Retinal Exam 05/05/2018 05/05/2017 Covid-19 Vaccine (3 - Pfizer risk series) 10/17/2020 09/19/2020, 08/29/2020 DTaP,Tdap,Td Vaccine (2 - Td or Tdap) 12/16/2020 12/16/2010 Colorectal Cancer Screening 06/23/2021 Fecal Occult Blood 06/23/2021 06/23/2020, 0 06/23/2020, 05/21/2020 Urine Albumin:Creatinine Ratio 04/17/2024 04/17/2023 , 03/22/2022 LDL Cholesterol 07/09/2024 07/09/2023, 03/09, 03/22/2022, Additional history exists Influenza Vaccine (#1) 2025 8, 05/21/2017, 05/20/2017, Additional history exists HbA1C 06/16/2025 03/16/2025, 12/07, 12/22/2024, Additional history exists Prostate Cancer Screening Discussion 02/18/2030 02/18/2025, 08/06/2022, 09/05/2021 HIV Screening Completed 12/09/2023, 05/22/2020 Hepatitis C Screening Completed 12/09/2023 , 05/22/2020, 04/07/2020, Additional history exists Medical Devices Implanted Type Area Brine Tank Tender Device Identifier Shelf Expiration Date Model / Serial / Lot Tod Tod Back Description:Lower back Screw Screw Back Procedures Procedure Name Priority Date/Time Associated Diagnosis Comments IMAGING GUIDED BIOPSY BONE MARROW Routine 03/18/2025 9:25 AM EDT CML (chronic myeloid leukemia) (HCC) FLOW CYTOMETRY FOR LEUKEMIA/LYMPHOMA (FCLL) PERFORMABLE Routine 03/18/2025 9:18 AM EDT FLOW CYTOMETRY FOR LEUKEMIA/LYMPHOMA (FCLL) Routine 03/18/2025 9:18 AM EDT DIAGNOSTIC BONE MARROW BIOPSIES & ASPIRATIONS 03/18/2025 8:23 AM EDT CML (chronic myeloid leukemia) (HCC) GLUCOSE, BLOOD (POC) Routine 03/18/2025 6:37 AM EDT HIGH SENSITIVITY TROPONIN T (SECOND) STAT 03/16/2025 12:51 PM EDT NT PRO BNP STAT 03/16/2025 11:47 AM EDT HIGH SENSITIVITY TROPONIN T (INITIAL) STAT 03/16/2025 11:47 AM EDT ECG COMPLETE STAT 03/16/2025 11:29 AM EDT HEMOGLOBIN A1C Routine 03/16/2025 9:22 AM EDT CML (chronic myeloid leukemia) (HCC) HIGH SENSITIVITY TROPONIN T Routine 03/16/2025 9:22 AM EDT CML (chronic myeloid leukemia) (HCC) ACTIVATED PTT Routine 03/16/2025 9:22 AM EDT CML (chronic myeloid leukemia) (HCC) PROTHROMBIN TIME Routine 03/16/2025 9:22 AM EDT CML (chronic myeloid leukemia) (HCC) CHOLESTEROL BLD Routine 03/16/2025 9:22 AM EDT CML (chronic myeloid leukemia) (HCC) TRIGLYCERIDES BLD Routine 03/16/2025 9:2 2 AM EDT CML (chronic myeloid leukemia) (HCC) LIPASE BLD Routine 03/16/2025 9:22 AM EDT CML (chronic myeloid leukemia) (HCC) AMYLASE BLD Routine 03/16/2025 9:22 AM EDT CML (chronic myeloid leukemia) (HCC) PHOSPHORUS INORGANIC Routine 03/16/2025 9:22 AM EDT CML (chronic myeloid leukemia) (HCC) MAGNESIUM BLD Routine 03/16/2025 9:22 AM EDT CML (chronic myeloid leukemia) (HCC) URIC ACID BLOOD Routine 03/16/2025 9:22 AM EDT CML (chronic myeloid leukemia) (HCC) CK CREATINE KINASE Routine 03/16/2025 9: 22 AM EDT CML (chronic myeloid leukemia) (HCC) BILIRUBIN, CONJUGATED Routine 03/16/2025 9:22 AM EDT CML (chronic myeloid leukemia) (HCC) COMPREHENSIVE METABOLIC PANEL Routine 03/16/2025 9:22 AM EDT CML (chronic myeloid leukemia) (HCC) CBC + DIFF Routine 03/16/2025 9:22 AM EDT CML (chronic myeloid leukemia) (HCC) URINALYSIS, DIPSTICK ONLY Routine 03/16/2025 8:36 AM EDT CML (chronic myeloid leukemia) (HCC) HIGH SENSITIVITY TROPONIN T Routine 12/23/2024 3:25 [...] AM EDT CML (chronic myelocytic leukemia) (HCC) [facility] SEND OUT TST 1 Routine 12/22/2024 8 [...] AM EDT CML (chronic myelocytic leukemia) (HCC) COMPREHENSIVE METABOLIC PANEL Routine 12/22/2024 8:36 AM EDT CML (chronic myelocytic leukemia) (HCC) CBC + DIFF Routine 12/22/2024 8:36 AM EDT CML (chronic myelocytic leukemia) (HCC) LDL CHOLESTEROL DIR Routine 07/09/2023 1 1:31 [...] Recently Relevant to Health Maintenance Results * IMAGING GUIDED BIOPSY BONE MARROW (HEMATOLOGY) (03/18/2025 9:25 AM EDT) Anatomical Region Laterality Modality Computed Tomogra phy 03/18/2025 9:25 AM EDT Impressions 03/18/2025 10:15 AM EDT IMPRESSION: SUCCESSFUL CT GUIDED RIGHT POSTERIOR ILIAC BONE MARROW ASPIRATION AND BIOPSY DESCRIBED. Attending Radiologist: Dr. Shaggy Kaur MD Small Products Ii Assembler: Dr. Anoop Adorno MD Teaching attestation: The teaching physician was present in the department during the procedure and immediately available for assistance and direction throughout the procedure. Airplane Gas Tank Liner Assembler: PSCB Transcribe Date/Time: Mar 18 2025 9:40A Dictated by : ANOOP ADORNO MD This examination was interpreted and the report reviewed and electronically signed by: SHAGGY KAUR MD on Mar 18 2025 10:13AM EST Narrative 03/18/2025 10:15 AM EDT * * *Final Report* * * DATE OF EXAM: Mar 18 2025 9:25AM [facility] [id number] - CT BIOPSY BONE MARROW (HEMO) / PROCEDURE REASON: C92.10-CML (chronic myeloid leukemia) ([facility]) * * * * Physician Interpretation * * * * CT GUIDED BONE MARROW ASPIRATION AND BIOPSY INDICATION: The patient is a 54 years year old Male who presented with CML (chronic myeloid leukemia) ([facility]) . CONSENT: The risks, benefits, treatment options, potential [...] Yes b) Positioning: The patient was placed prone on the table. c) The area was then sterilely prepped and draped. d) [...] and procedure-specific equipment needs. Time Out Time: 09:06 ANESTHESIA: a) Local anesthesia: 10 mL 2% Lidocaine b) Anesthesia Type: Induction of moderate procedural sedation. c) Anesthesia Start Time: 08:54 d) Anesthesia Medications: 100 mcg Fentanyl; 2 mg Midazolam; e) Intra-service time (starts with administration of agent, ends when continuous fcgl-lc-[id number] time ends): 27 minutes. f) Patient monitoring:I personally supervised and directed an independent trained observer who assisted in monitoring the patient?s level of consciousness and physiological status throughout the procedure. PROCEDURE: a) Procedure Details: The area was marked, prepped, and draped. Local anesthesia was administered. Under CT guidance an 11 gauge On-control was advanced into the posterior aspect of the right iliac bone. Bone marrow aspiration was performed followed by a single core biopsy sample. Specimens were given directly into the hematology high density press laborer for proper handling. Hemostasis was achieved using light manual compression. All needles were removed. Images were stored. b) Devices used: Biopsy Needle: 11 Gauge On Control c) Estimated Blood Loss: 0 mL d) Number and Type of Removed Specimens: 9 mL bone marrow aspirate and a 1.7 cm core bone biopsy specimen CONTRAST CT imaging was performed without contrast. RADIATION DOSE a) Image guidance: CT guidance b) Radiation: CT Radiation dose: Integrated Dose-length product (DLP) for this visit = 457 mGy*cm. CT Dose Reduction Employed: Automated exposure control (AEC) POST PROCEDURE: a) Hemostasis: Hemostasis was achieved using light manual compression. b) Sign-out: Communication Performed N/A c) Procedure End Time: 09:21 d) Conclusion: The patient was transferred to the biopsy recovery room in stable condition. COMPLICATIONS: a) Significant Patient Complication: None b) Complications during the procedure: None RESULTS: Successful CT-guided bone marrow aspiration and biopsy. Procedure Note Provider, [facility] - 03/18/2025 * * *Final Report* * * DATE OF EXAM: Mar 18 2025 9:25AM [facility] [id number] - CT BIOPSY BONE MARROW (HEMO) / PROCEDURE REASON: C92.10-CML (chronic myeloid leukemia) ([facility]) * * * * Physician Interpretation * * * * CT GUIDED BONE MARROW ASPIRATION AND BIOPSY INDICATION: The patient is a 54 years year old Male who presented with CML (chronic myeloid leukemia) ([facility]) . CONSENT: The risks, benefits, treatment options, potential [...] Yes b) Positioning: The patient was placed prone on the table. c) The area was then sterilely prepped and draped. d) [...] and procedure-specific equipment needs. Time Out Time: 09:06 ANESTHESIA: a) Local anesthesia: 10 mL 2% Lidocaine b) Anesthesia Type: Induction of moderate procedural sedation. c) Anesthesia Start Time: 08:54 d) Anesthesia Medications: 100 mcg Fentanyl; 2 mg Midazolam; e) Intra-service time (starts with administration of agent, ends when continuous mgbh-dd-zcof time ends): 27 minutes. f) Patient monitoring:I personally supervised and directed an independent trained observer who assisted in monitoring the patient?s level of consciousness and physiological status throughout theprocedure. PROCEDURE: a) Procedure Details: The area was marked, prepped, and draped. Local anesthesia was administered. Under CT guidance an 11 gauge On-control was advanced into the posterior aspect of the right iliac bone. Bone marrow aspiration was performed followed by a single core biopsy sample. Specimens were given directly into the hematology high density press laborer for proper handling. Hemostasis was achieved using light manual compression. All needles were removed. Images were stored. b) Devices used: Biopsy Needle: 11 Gauge On Control c) Estimated Blood Loss: 0 mL d) Number and Type of Removed Specimens: 9 mL bone marrow aspirate and a 1.7 cm core bone biopsy specimen CONTRAST CT imaging was performed without contrast. RADIATION DOSE a) Image guidance: CT guidance b) Radiation: CT Radiation dose: Integrated Dose-length product (DLP) for this visit = 457 mGy*cm. CT Dose Reduction Employed: Automated exposure control (AEC) POST PROCEDURE: a) Hemostasis: Hemostasis was achieved using light manual compression. b) Sign-out: Communication Performed N/A c) Procedure End Time: 09:21 d) Conclusion: The patient was transferred to the biopsy recovery room in stable condition. COMPLICATIONS: a) Significant Patient Complication: None b) Complications during the procedure: None RESULTS: Successful CT-guided bone marrow aspiration and biopsy. IMPRESSION IMPRESSION: SUCCESSFUL CT GUIDED RIGHT POSTERIOR ILIAC BONE MARROW ASPIRATION AND BIOPSY DESCRIBED. Attending Radiologist: Dr. Shaggy Kaur MD Small Products Ii Assembler: Dr. Anoop Adorno MD Teaching attestation: The teaching physician was present in the department during the procedure and immediately available for assistance and direction throughout the procedure. Airplane Gas Tank Liner Assembler: PSCB Transcribe Date/Time: Mar 18 2025 9:40A Dictated by : ANOOP ADORNO MD This examination was interpreted and the report reviewed and electronically signed by: SHAGGY KAUR MD on Mar 18 2025 10:13AM EST us Kathie Rob MD CT-PAMA Final Result * FLOW CYTOMETRY FOR LEUKEMIA/LYMPHOMA (FCLL) PERFORMABLE (03/18/2025 9:18 AM EDT) [facility] Flow Cytometry Order Status Results will be reported under F case ID when completed 03/18/2025 11:57 AM EDT [facility] Bone Marrow BONE MARROW SPECIMEN / Unknown 03/18/2025 9:18 AM EDT 03/18/2025 9:58 AM EDT Shaggy Kaur MD LABORATORY Final Result [facility] [address] [place] [address] Desk [address] [place] [address], * (ABNORMAL) GLUCOSE, BLOOD (POC) (03/18/2025 6:37 AM EDT) [facility] Glucose, Point of Care 213(A) 74 - 99 mg/dL [facility] Comment: Location:[facility], [address] [place] [address], [facility] The Accu-Chek Inform II glucose meter has [...] the above situations. 03/18/2025 6:37 AM EDT Ccf Provider POC TESTING Final Result Performing Organization Address [facility]/ZIP Co de Phone Number [facility] POINT OF CARE [address] * (ABNORMAL) HIGH SENSITIVITY TROPONIN T (SECOND) (03/16/2025 12:51 PM EDT) [facility] TRACY High Sensitivity 56(H) <12 ng/L 03/16/2025 1:19 PM EDT [facility] Blood BLOOD SPECIMEN / Unknown Venipuncture / Unknown 03/16/2025 12:51 PM EDT 03/16/2025 12:54 PM EDT Robbin C Holman PA-C LABORATORY Final Result [facility] [address] [facility] [place] [id number], [place] * (ABNORMAL) HIGH SENSITIVITY TROPONIN T (INITIAL) (03/16/2025 11:47 AM EDT) TRACY High Sensitivity 53(H) <12 ng/L 03/16/2025 12:33 PM EDT [facility] Blood BLOOD SPECIMEN / Unknown Venipuncture / Unknown 03/16/2025 11:47 AM EDT 03/16/2025 12:07 PM EDT Robbin C Brooklynn PA-C LABORATORY Final Result Performing Organization Address City/[facility]/ZIP Co de Phone Number [facility] [address] [facility] [address] [address], [place] * NT PRO BNP (03/16/2025 11:47 AM EDT) NT Pro BNP 113 <125 pg/mL 03/16/2025 12:32 PM EDT [facility] Blood BLOOD SPECIMEN / Unknown Venipuncture / Unknown 03/16/2025 11:47 AM EDT 03/16/2025 12:07 PM EDT Robbin C Holman PA-C LABORATORY Final Result [facility] [address] [facility] [place] [id number], [place] * ECG COMPLETE (03/16/2025 11:29 AM EDT) Ventricular Rate 67 BPM [facility] Atrial Rate 67 BPM [facility] P-R Interval 154 ms [facility] QRS Duration 96 ms [facility] QT Interval 404 ms [facility] QTC Calculation (Bazett) 426 ms [facility] Calculated P [place] 24 degrees [facility] Calculated R [place] 56 degrees [facility] Calculated T [place] 35 degrees [facility] 03/16/2025 11:2 9 AM EDT Impressions [facility] - 03/16/2025 11:34 AM EDT SINUS RHYTHM WITH PREMATURE ATRIAL COMPLEXES OTHERWISE NORMAL ECG Confirmed by LARS REINOSO MD () on 03/16/2025 11:34:31 AM Narrative [facility] - 03/16/2025 11:34 AM EDT NAME : DERRELL MERRITT PID : [id number] : 1970 Gender : Male Race : ORD : [id number] Procedure Date : Mar 16 2025 11:29:40 Edit Date : Mar 16 2025 11:34:38 Diagnosis: SINUS RHYTHM WITH PREMATURE ATRIAL COMPLEXES OTHERWISE NORMAL ECG Confirmed by LARS REINOSO MD () on 03/16/2025 11:34:31 AM Test Reason : Chest Pain Location : 2 : EDNS [id number] Overread By : LARS REINOSO MD Edited By : LARS REINOSO MD Referred By : , Acquired by : ed, us Ashish Hsu Holman PA-C EKG Final Result [facility] [address] [place] [address] * MAGNESIUM (03/16/2025 9:22 AM EDT) Only the most recent of2 resultswithin the time period is included. Magnesium 2.1 1.7 - 2.3 mg/dL 03/16/2025 10:08 AM EDT [facility] Blood BLOOD SPECIMEN / Unknown Venipuncture / Unknown 03/16/2025 9:22 AM EDT 03/16/2025 9:24 AM EDT us William Howell MD, PhD LABORATORY Final Result [facility] [address] [facility] [address] [place] [address], [place] * (ABNORMAL) HIGH SENSITIVITY TROPONIN T (03/16/2025 9:22 AM EDT) Only the most recent of3 resultswithin the time period is included. TRACY High Sensitivity 54(H) <12 ng/L 03/16/2025 10:32 AM EDT [facility] Blood BLOOD SPECIMEN / Unknown Venipuncture / Unknown 03/16/2025 9:22 AM EDT 03/16/2025 9:24 AM EDT William Howell MD, PhD LABORATORY Final Result Performing Organization Address City/[facility]/ZIP Co de Phone Number [facility] [address] [place] [address], [place] * (ABNORMAL) URIC ACID (03/16/2025 9:22 AM EDT) Only the most recent of2 resultswithin the time period is included. Uric Acid 3.1(L) 4.0 - 8.1 mg/dL 03/16/2025 10:10 AM EDT [facility] Blood BLOOD SPECIMEN / Unknown Venipuncture / Unknown 03/16/2025 9:22 AM EDT 03/16/2025 9:24 AM EDT William Howell MD, PhD LABORATORY Final Result [facility] [address] [facility] [place] [id number], [place] * TRIGLYCERIDES (03/16/2025 9:22 AM EDT) Only the most recent of2 resultswithin the time period is included. Triglyceride 122 <150 mg/dL 03/16/2025 10:10 AM EDT [facility] Comment: <150 mg/dL, Normal 150-199 mg/dL, Borderline high 200-499 mg/dL, High >499 mg/dL, Very high Reference: 1. National Cholesterol Education Program ATP III Guideline At-A-Glance Quick Desk Reference: National Heart, Lung, and Blood [place]. National Institutes of Health. 2001: NIH Publication No. 01-3305. Fasting Time 14 hrs 03/16/2025 10:10 AM EDT [facility] Blood BLOOD SPECIMEN / Unknown Venipuncture / Unknown 03/16/2025 9:22 AM EDT 03/16/2025 9:24 AM EDT us William Howell MD, PhD LABORATORY Final Result [facility] [address] [facility] [place] [address], * PROTHROMBIN TIME (03/16/2025 9:22 AM EDT) Only the most recent of2 resultswithin the time period is included. PT Sec 11.6 9.7 - 13.0 sec 03/16/2025 10:05 AM EDT [facility] INR 1.1 0.9 - 1.3 03/16/2025 10:05 AM EDT [facility] Comment: Vitamin K Antagonist (VKA) Therapeutic Range: INR 2 to 3 (Target INR of 2.5) Note: For patients treated with VKA drugs, such as warfarin, the [place] [employer] 2012 Guideline recommends [...] GH, et al. Chest 2012, 141:7S-47S Surinder RA et al. JACC 2017, 70: 252-289 Blood BLOOD SPECIMEN / Unknown Venipuncture / Unknown 03/16/2025 9:22 AM EDT 03/16/2025 9:24 AM EDT us William Howell MD, PhD LABORATORY Final Result [facility] [address] [facility] [address] [place] [address], [place] * PHOSPHORUS INORGANIC (03/16/2025 9:22 AM EDT) Only the most recent of2 resultswithin the time period is included. Phosphorus 3.9 2.7 - 4.8 mg/dL 03/16/2025 10:08 AM EDT [facility] Blood BLOOD SPECIMEN / Unknown Venipuncture / Unknown 03/16/2025 9:22 AM EDT 03/16/2025 9:24 AM EDT William Howell MD, PhD LABORATORY Final Result Performing Organization Address City/[facility]/ZIP Co de Phone Number [facility] [address] [place] [address], [place] * LIPASE (03/16/2025 9:22 AM EDT) Only the most recent of2 resultswithin the time period is included. Lipase 38 16 - 61 U/L 03/16/2025 10:08 AM EDT [facility] Blood BLOOD SPECIMEN / Unknown Venipuncture / Unknown 03/16/2025 9:22 AM EDT 03/16/2025 9:24 AM EDT William Howell MD, PhD LABORATORY Final Result [facility] [address] [facility] [address] [place] [address], [place] * (ABNORMAL) HEMOGLOBIN A1C (03/16/2025 9:22 AM EDT) Only the most recent of2 resultswithin the time period is included. Pathologist [facility] Hemoglobin A1C 9.2(H) 4.3 - 5.6 % 03/16/2025 12:55 PM EDT [facility] Comment:[place] Diabetes [employer] sociation guidelines indicate that patients with HgbA1c in the range 5.7-6.4% are at increased risk for development of diabetes, and intervention by lifestyle modification may be beneficial. HgbA1c greater or equal to 6.5% is considered diagnostic of diabetes. Estimated Average Glucose 217 mg/dL 03/16/2025 12:55 PM EDT [facility] Comment:eAG: (Estimated aver age glucose) is a calculated value from HgbA1c and is assisted sales representative of the average blood glucose level in the last 2-3 month period. Blood BLOOD SPECIMEN / Unknown Venipuncture / Unknown 03/16/2025 9:22 AM EDT 03/16/2025 9:24 AM EDT us William Howell MD, PhD LABORATORY Final Result [facility] [address] [place] [address], * (ABNORMAL) COMPREHENSIVE METABOLIC PANEL (03/16/2025 9:22 AM EDT) Only the most recent of2 resultswithin the time period is included. Pathologist [facility] Protein, Total 8.4(H) 6.3 - 8.0 g/dL 03/16/2025 10:10 AM EDT [facility] Albumin 4.2 3.9 - 4.9 g/dL 03/16/2025 10:10 AM EDT [facility] Calcium, Total 9.6 8.5 - 10.2 mg/dL 03/16/2025 10:10 AM EDT [facility] Bilirubin, Total 0.5 0.2 - 1.3 mg/dL 03/16/2025 10:10 AM EDT [facility] Alkaline Phosphatase 322(H) 38 - 113 U/L 03/16/2025 10:10 AM EDT [facility] AST 35 14 - 40 U/L 03/16/2025 10:10 AM [facility] ALT 51 10 - 54 U/L 03/16/2025 10:10 AM [facility] Glucose 177(H) 74 - 99 mg/dL 03/16/2025 10:10 AM [facility] Comment: The [place] Diabetes Association (ADA) provides guidance for cutoff [...] Standards of Medical Care in Diabetes 2016, [place] [employer] Association. Diabetes Care. 2016.39(Suppl 1). BUN 12 9 - 24 mg/dL 03/16/2025 10:10 AM [facility] Creatinine 0.57(L) 0.73 - 1.22 mg/dL 03/16/2025 10:10 AM [facility] Sodium 137 136 - 144 mmol/L 03/16/2025 10:10 AM [facility] Potassium 5.0 3.7 - 5.1 mmol/L 03/16/2025 10:10 AM [facility] Chloride 101 98 - 107 mmol/L 03/16/2025 10:10 AM [facility] CO2 27 22 - 30 mmol/L 03/16/2025 10:10 AM [facility] Anion Gap 9 8 - 15 mmol/L 03/16/2025 10:10 AM [facility] Estimated Glomerular Filtration Rate 115 >=60 mL/min/1. 73m 03/16/2025 10:10 AM [facility] Comment:Estimated Glomerular Filtration Rate (eGFR) is [...] SPECIMEN / Unknown Venipuncture / Unknown 03/16/2025 9:22 AM EDT 03/16/2025 9:24 AM EDT William Howell MD, PhD LABORATORY Final Result Performing Organization Address City/[facility]/ZIP Co de Phone Number [facility] [place] [address], [place] * TOTAL CHOLESTEROL (03/16/2025 9:22 AM EDT) Only the most recent of2 resultswithin the time period is included. Cholesterol, Total 165 <200 mg/dL 03/16/2025 10:12 AM EDT [facility] Comment: <200 mg/dL, Desirable 200-239 mg/dL, Borderline high >239 mg/dL, High Reference: 1. National Cholesterol Education Program ATP III Guideline At-A-Glance Quick Desk Reference: National Heart, Lung, and Blood [place]. National Institutes of Health. 2001: NIH Publication No. 01-3305. Blood BLOOD SPECIMEN / Unknown Venipuncture / Unknown 03/16/2025 9:22 AM EDT 03/16/2025 9:24 AM EDT William Howell MD, PhD LABORATORY Final Result [facility] [address] [place] [address], [place] * CREATINE KINASE/CK (03/16/2025 9:22 AM EDT) Only the most recent of2 resultswithin the time period is included. Pathologist [facility] CK 92 51 - 298 U/L 03/16/2025 10:32 AM EDT [facility] Blood BLOOD SPECIMEN / Unknown Venipuncture / Unknown 03/16/2025 9:22 AM EDT 03/16/2025 9:24 AM EDT us William Howell MD, PhD LABORATORY Final Result [facility] [address] [facility] [address] [place] [address], [place] * (ABNORMAL) COMPLETE BLOOD COUNT AND DIFFERENTIAL (03/16/2025 9:22 AM EDT) Only the most recent of2 resultswithin the time period is included. WBC 10.43 3.70 - 11.00 k/uL 03/16/2025 9:36 AM EDT [facility] RBC 6.06(H) 4.20 - 6.00 m/uL 03/16/2025 9:36 AM EDT [facility] Hemoglobin 16.1 13.0 - 17.0 g/dL 03/16/2025 9:36 AM EDT [facility] Hematocrit 47.8 39.0 - 51.0 % 03/16/2025 9:36 AM EDT [facility] MCV 78.9(L) 80.0 - 100.0 fL 03/16/2025 9:36 AM EDT [facility] MCH 26.6 26.0 - 34.0 pg 03/16/2025 9:36 AM EDT [facility] MCHC 33.7 30.5 - 36.0 g/dL 03/16/2025 9:36 AM EDT [facility] RDW-CV 13.4 11.5 - 15.0 % 03/16/2025 9:36 AM EDT [facility] Platelet Count 292 150 - 400 k/uL 03/16/2025 9:36 AM EDT [facility] MPV 10.1 9.0 - 12.7 fL 03/16/2025 9:36 AM EDT [facility] Neutrophils % 65.8 % 03/16/2025 9:36 AM EDT [facility] Abs Neut 6.87 1.45 - 7.50 k/uL 03/16/2025 9:36 AM EDT [facility] Lymphocytes % 20.4 % 03/16/2025 9:36 AM EDT [facility] Abs Lymph 2.13 1.00 - 4.00 k/uL 03/16/2025 9:36 AM EDT [facility] Monocytes % 7.2 % 03/16/2025 9:36 AM EDT [facility] Abs Cook 0.75 <0.87 k/uL 03/16/2025 9:36 AM EDT [facility] Eosinophils % 5.1 % 03/16/2025 9:36 AM EDT [facility] Abs Eosin 0.53(H) <0.46 k/uL 03/16/2025 9:36 AM EDT [facility] Basophils % 0.8 % 03/16/2025 9:36 AM EDT [facility] Abs Baso 0.08 <0.11 k/uL 03/16/2025 9:36 AM EDT [facility] Immature Granulocytes % 0.7 % 03/16/2025 9:36 AM EDT [facility] Abs Immature Gran 0.07 <0.10 k/uL 025 9:36 AM EDT [facility] NRBC 0.0 /100 WBC 03/16/2025 9:36 AM EDT [facility] Absolute nRBC <0.01 <0.01 k/uL 03/16/2025 9:36 AM EDT [facility] Diff Type Auto 03/16/2025 9:36 AM EDT [facility] Blood BLOOD SPECIMEN / Unknown Venipuncture / Unknown 03/16/2025 9:22 AM EDT 03/16/2025 9:24 AM EDT us William Howell MD, PhD LABORATORY Final Result [facility] [address] [place], [place] [id number], * BILIRUBIN, CONJUGATED (03/16/2025 9:22 AM EDT) Bilirubin, Direct 0.2 <0.3 mg/dL 03/16/2025 10:08 AM EDT [facility] Blood BLOOD SPECIMEN / Unknown Venipuncture / Unknown 03/16/2025 9:22 AM EDT 03/16/2025 9:24 AM EDT us William Howell MD, PhD LABORATORY Final Result Performing Organization Address [facility] Phone Number [place] [address], [place] * AMYLASE (03/16/2025 9:22 AM EDT) Only the most recent of2 resultswithin the time period is included. Amylase 46 30 - 104 U/L 03/16/2025 10:08 AM EDT [facility] Blood BLOOD SPECIMEN / Unknown Venipuncture / Unknown 03/16/2025 9:22 AM EDT 03/16/2025 9:24 AM EDT us William Howell MD, PhD LABORATORY Final Result Performing Organization Address [facility] Number [place] [address], [place] * ACTIVATED PARTIAL THROMBOPLASTIN TIME (03/16/2025 9:22 AM EDT) Only the most recent of2 resultswithin the time period is included. APTT 25.4 23.0 - 32.4 sec 03/16/2025 10:05 AM EDT [facility] Blood BLOOD SPECIMEN / Unknown Venipuncture / Unknown 03/16/2025 9:22 AM EDT 03/16/2025 9:24 AM EDT Narrative [facility] - 03/16/2025 10:05 AM EDT Unfractionated Heparin Therapeutic Ranges: Standard [...] laboratory APTT reagent in use throughout the [facility]. William Howell MD, PhD LABORATORY Final Result [facility] [address] [facility] Des[address] [address], [place] * (ABNORMAL) URINALYSIS, DIPSTICK ONLY (03/16/2025 8:36 AM EDT) Only the most recent of2 resultswithin the time period is included. Color Yellow Yellow 03/16/2025 10:23 AM EDT [facility] Clarity Clear Clear 03/16/2025 10:23 AM EDT [facility] Glucose, Urine Trace(A) Negative 03/16/2025 10:23 AM EDT [facility] Bilirubin, Urine Negative Negative 03/16/20 25 10:23 AM EDT [facility] Ketones, Urine Negative Negative 03/16/2025 10:23 AM EDT [facility] Specific [place], Ur 1.010 1.005 - 1.030 03/16/2025 10:23 AM EDT [facility] Hemoglobin/Blood ,Ur Negative Negative 03/16/2025 10:23 AM EDT [facility] pH, Urine 6.0 5.0 - 8.0 03/16/2025 10:23 AM EDT [facility] Protein, Urine Negative Negative 03/16/2025 10:23 AM EDT [facility] Urobilinogen 0.2 EU/dL 0.2-1.0 EU/dL 03/16/2025 10:23 AM EDT [facility] Nitrites Negative Negative 03/16/2025 10:23 AM EDT [facility] Leuk Esterase Negative Negative 03/16/2025 10:23 AM EDT [facility] Urine URINE SPECIMEN / Unknown 03/16/2025 8:36 AM EDT 03/16/2025 9:41 AM EDT Narrative [facility] - 03/16/2025 10:23 AM EDT This is a date sensitive research/study lab order. Only draw this lab on the expected date specified in the order. us William Howell MD, PhD LABORATORY Final Result [facility] [address] [facility] [address] [place] [address], [place] * ECHO (12/22/2024 12:40 PM EDT) 12/22/2024 12:4 0 PM EDT [facility] - 12/22/2024 2:29 PM EDT CONCLUSIONS: - [...] with the prior echocardiographic exam performed on 09/15/2024.Overall, similar findings. * * * Final * * * [facility] - 12/22/2024 2:29 PM EDT Echocardiography Report: Transthoracic Echo [facility] [id number] Date of service: 12/22/2024 12:40:18 PM MACHINIST Ordering physician: WILLIAM HOWELL Exam indication: Baseline and serial evaluation in a patient undergoing therapy with cardiotoxic agents Technologist: Annabel Patel and Alanis Sarabia RD Fellow: Parker Larson MD Interpreting physician: Maggy Ruff MD PATIENT: Name: MR. DERRELL MERRITT JR : 1970 Age: 54 years [...] effusion. There is an epicardial fat pad. William Howell MD, PhD ECHO Final Result Performing Organization Address [facility] Co de Phone Number [facility] [address] [place] [address] * LVEF TRANSTHORACIC ECHO (12/22/2024 12:40 PM EDT) LV Ejection Fraction 58 % [facility] Comment: (2D biplane) EF > 52 An LV Ejection Fraction of > 50% is normal 12/22/2024 12:4 0 PM EDT William Howell MD, PhD LVEF RESULTS Final Result Performing Organization Address [facility] Co de Phone Number [facility] [address] [place] [address] * ECG COMPLETE (12/22/2024 9:48 AM EDT) Ventricular Rate 67 BPM [facility] Atrial Rate 67 BPM [facility] P-R Interval 156 ms [facility] QRS Duration 96 ms [facility] QT Interval 404 ms [facility] QTC Calculation (Bazett) 426 ms [facility] Calculated P [place] 6 degrees [facility] Calculated R [place] 25 degrees [facility] Calculated T [place] 20 degrees [facility] 12/22/2024 9:48 AM EDT [facility] - 02/09/2025 1:19 PM EDT NORMAL SINUS RHYTHM NORMAL ECG Confirmed by JEREMIAS PAL MD ([id number]) on 02/09/2025 1:11:34 PM Narrative [facility] - 02/09/2025 1:19 PM EDT NAME : DERRELL MERRITT PID : [id number] : 1970 Gender : Male Race : [...] EKG Final Result [facility] [address] [place] [address] * ECG COMPLETE (12/22/2024 9:48 AM EDT) Ventricular Rate 65 BPM [facility] Atrial Rate 65 BPM [facility] P-R Interval 146 ms [facility] QRS Duration 92 ms [facility] QT Interval 400 ms [facility] QTC Calculation (Bazett) 416 ms [facility] Calculated P [place] 16 degrees [facility] Calculated R [place] 26 degrees [facility] Calculated T [place] 18 degrees [facility] 12/22/2024 9:48 AM EDT [facility] - 02/09/2025 1:19 PM EDT NORMAL SINUS RHYTHM NORMAL ECG Confirmed by JEREMIAS PAL MD ([id number]) on 02/09/2025 1:11:34 PM Narrative [facility] - 02/09/2025 1:19 PM EDT NAME : DERRELL MERRITT PID : [id number] : 1970 Gender : Male Race : [...] Provider EKG Final Result Performing Organization Address [facility] Co de Phone Number [facility] [address] [place] [address] * ECG COMPLETE (12/22/2024 9:47 AM EDT) Pathologist [facility] Ventricular Rate 67 BPM [facility] Atrial Rate 67 BPM [facility] P-R Interval 152 ms [facility] QRS Duration 92 ms [facility] QT Interval 396 ms [facility] QTC Calculation (Bazett) 418 ms [facility] Calculated P [place] 11 degrees [facility] Calculated R [place] 26 degrees [facility] Calculated T [place] 17 degrees [facility] 12/22/2024 9:47 AM EDT [facility] - 02/09/2025 1:19 PM EDT NORMAL SINUS RHYTHM NORMAL ECG Confirmed by JEREMIAS PAL MD ([id number]) on 02/09/2025 1:11:34 PM Narrative [facility] - 02/09/2025 1:19 PM EDT NAME : DERRELL MERRITT PID : [id number] : 1970 Gender : Male Race : [...] Provider EKG Final Result Performing Organization Address [facility] Co de Phone Number [facility] [address] [place] [address] * DIRECT BILIRUBIN BLOOD (12/22/2024 8:36 AM EDT) Bilirubin, Direct 0.1 <0.3 mg/dL 12/22/2024 9:28 AM EDT [facility] Blood BLOOD SPECIMEN / Unknown Venipuncture / Unknown 12/22/2024 8:36 AM EDT 12/22/2024 8:38 AM EDT us William Howell MD, PhD LABORATORY Final Result [facility] [address] [facility] [address] * BCR/ABL1 P210 QUANTITATIVE PCR BLOOD (12/22/2024 8:36 AM EDT) Pathologist [facility] BCR/ABL1 P210 INTERPRETATION BCR/ABL1 p210 Quantitative PCR Laboratory Accession Number: [id number] Result: DETECTED MR: 2.55 %IS: 0.2815 Interpretation: p210 BCR/ABL1 transcripts were detected. Quantitative results are expressed on the International Scale (IS) and a log molecular response (MR) is calculated. On this scale, a value of less than or equal to 0.1% corresponds to a major molecular response (MMR or MR3.0). Methodology: The [employer] QuantideX BCR/ABL IS assay is an FDA-cleared [...] 2015;29:999-1003 Interpretation performed by Radha Lozano, PhD, [facility] 12/24/2024 4:11 PM EDT [facility] Blood BLOOD SPECIMEN / Unknown Venipuncture / Unknown 12/22/2024 8:36 AM EDT 12/22/2024 8:38 AM EDT William Howell MD, PhD LABORATORY Final Result [facility] [address] [place] [id number], [place] * BCR/ABL1 P210 %IS PANEL (12/22/2024 8:36 AM EDT) [facility] BCR/ABL1 P210 %IS 0.2815 12/25/2024 12:07 PM EDT [facility] BCR/ABL1 P210 MR 2.55 12/25/2024 12:07 PM EDT [facility] Blood BLOOD SPECIMEN / Unknown Venipuncture / Unknown 12/22/2024 8:36 AM EDT 12/22/2024 8:38 AM EDT William Howell MD, PhD LABORATORY Final Result Performing Organization Address City/[facility]/ZIP Co de Phone Number [facility] [address] [place] [id number], [place] * MISC SEND OUT TST 1 (12/22/2024 8:36 AM EDT) [facility] Signature Test 1 12/29/2024 9:01 AM EDT [facility] Comment:Research Test Results 1 12/29/2024 9:01 AM EDT [facility] Comment:Research Referral Lab 1 12/29/2024 9:01 AM EDT [facility] Comment:Research Blood BLOOD SPECIMEN / Unknown Venipuncture / Unknown 12/22/2024 8:36 AM EDT 12/22/2024 8:38 AM EDT William Howell MD, PhD LABORATORY Final Result [facility] [address] [place] [id number] * (ABNORMAL) LDL CHOLESTEROL DIR (07/09/2023 11:31 AM EST) LDL Cholesterol, Direct 182(H) <100 mg/dL 07/09/2023 2:33 PM EST [facility] Comment: <100 mg/dL, Optimal 100-129 mg/dL, Near optimal/above optimal 130-159 mg/dL, Borderline high 160-189 mg/dL, High >189 mg/dL, Very high Secondary prevention optimal LDL Cholesterol levels are recommended to be < 70 mg/dL Blood BLOOD SPECIMEN / Unknown Venipuncture / Unknown 07/09/2023 11:31 AM EST 07/09/2023 11:34 AM EST Kylee Ellison APRN.CNP LABORATORY Final Result Performing Organization Address [facility]/ZIP Co de Phone Number [facility] [place] [address], * (ABNORMAL) ALBUMIN/CREAT RATIO RND UR (04/17/2023 4:24 PM EST) Creatinine, Ur Random (UCRR) 73.8 20.0 - 300.0 mg/dL 04/18/2023 10:09 AM EST [facility] Albumin, Urine Random 32.8 mg/L 04/18/2023 10:09 AM EST [facility] Albumin/Creat Ratio 44(H) <30 mg/g 04/18/2023 10:09 AM EST [facility] Comment: Adult Male and Female Nephrotic [...] EST 04/17/2023 4:24 PM EST Kylee Ellison APRN.CNP LABORATORY Final Result Performing Organization Address City/[facility]/ZIP Co de Phone Number [facility] [address] [facility] [address] [place] [address], [place] * FECAL OCCULT BLOOD TEST (06/23/2020 10:29 AM EST) Occult Blood, Stool Negative Negative 06/29/2020 10:36 AM EST [facility] Comment: This test was developed and its performance characteristics determined by [facility]'s Chris [facility] [place] ([facility]). It has not been cleared or approved by the FDA. [facility] is regulated under CLIA as qualified to perform high complexity testing. This test is used for clinical purposes. It should not be regarded as investigational or for research. STOOL SPECIMEN / Unknown 06/23/2020 10:29 AM EST 06/28/2020 10:29 AM EST William Howell MD, PhD LABORATORY Final Result Performing Organization Address City/State/[facility] Co de Phone Number [facility] [address] [facility]. [place] [phone] [place] [id number] [place] [phone] * HIV 1 2 COMBO(AG/AB),WITH REFLEX TO DIFFERENTIATION (05/22/2020 12:29 PM EST) Pathologist [facility] HIV 12 Combo (Ag/Ab) Non Reactive Non Reactive 05/23/2020 11:07 PM EST [facility] HIV 1/2 Ab Confirmatory Test Not Indicated 05/23/2020 11:07 PM EST [facility] HIV Interpretation Negative 05/23/2020 11:07 PM EST [facility] Comment: No evidence of HIV-1 or HIV-2 infection. Should recent infection be suspected, repeat testing may be considered 2-3 weeks after this draw. HIV Information: [place] Rev. Code 3701.243(E): This information has been [...] William Howell MD, PhD LABORATORY Final Result [facility] [address] [place] [address] [facility] [address] [place] [address] * HCV QUANT RNA BY PCR (05/22/2020 12:29 PM EST) [facility] HCV RNA by PCR HCV RNA not detected by PCR. IU/mL 05/23/2020 9:58 PM EST [facility] Comment: Reference Range: Negative for HCV RNA The Linear Range of this assay is 15 IU/mL to 100,000,000 IU/mL. Blood 05/22/2020 12:2 9 PM EST 05/22/2020 12:31 PM EST William Howell MD, PhD LABORATORY Final Result [facility] [address] [place] [address] [facility] [address] [place] [address] from Last 3 Months or Most Recently Relevant to Health Maintenance Insurance [place], [place] [id number] [place] [address] Care Teams Mattress Maker Relationship Specialty Start Date End Date Buffy Chung, INSPECTOR [employer] [address] [place] [address] PCP - General Family Medicine 09/15/23 Paula Tuttle, MOISÉS [address] [place] [address] Research Nurse Hematology/Oncology 06/05/20 [place] [address] [place] [address] Physician Hematology/Oncology 06/05/20
--- OUTSIDE RECORDS SUMMARY | 2025-03-21 11:48 | XMS_ITS | Encounter Summary ---
Author Organization [facility] Address [facility] [place] [address] Care Team Providers Care Rn Mds Coordinator Name Role Phone Paula Tuttle RN Unavailable UnavailWilliam Goncalves MD, PhD Unavailable [phone] Buffy Chung CNP Primary Care Provider [phone] Source Comments In the event this information is protected by the Federal Confidentiality of Alcohol and Drug AbusePatient Records regulations: The Federal rules restrict any use of the information to criminally investigate or prosecute any alcohol or drug abuse patient.[facility] Encounter Details Date Type Department Care Team (Late st Contact Info) Description 03/17/2025 Patient [facility] [place] [facility] [address] [id number] Provider, Ccf Follow Up Appointment - Cardiology Social History Tobacco Use Types Packs/Day Years [...] is lower risk 9 09/09/2024 Data from: https://www.neighborhoodatlas.[facility]/. Last address used for calculation Daniel [...] 06/08/2025 8:30 AM EST Results Only Main [place] [address] [address] [place] [address] STUDY PT 06/08/2025 9:30 AM EST Visit (SP) Office Hematology/Oncology [address] [place] [address] [place] [address] [place] [address] STUDY PT 06/08/2025 9:30 AM EST Nurse Visit Hematology/Oncology [id number] [place] [address] Paula Tuttle, MOISÉS [address] [place] [address] STUDY PT 06/08/2025 9:45 AM EST Procedure Hematology/Oncology [address] [place] [address] EKG TO RESEARCH 06/08/2025 12:30 PM EST Office Visit Vascular Medicine [address] [place] [address] echo to research 09/12/2025 7:00 AM EDT Procedure Cardiology [address] [place] [address] Elevated troponin, history HCM 09/12/2025 7:45 AM EDT Office Visit Preventive Cardiology [address] [place] [address] Collins Beckman MD [address] [place] [address] Elevated troponin, history HCM documented as of this encounter Visit Diagnoses Not on filedocumented in this encounter Care Teams Rn Mds Coordinator Relationship Specialty Start Date End Date Buffy Chung, ABSTRACT MANAGER [facility] [address] PCP - General Family Medicine 09/15/23 Paula Tuttle, MOISÉS [address] [place] [address] Research Nurse Hematology/Oncology 06/05/20 William Cavazos MD, PhD [id number] [place] [address] Physician Hematology/Oncology 06/05/20 documented as of this encounter
--- OUTSIDE RECORDS SUMMARY | 2025-03-21 11:48 | XMS_ITS | Encounter Summary ---
Author Organization [facility] Address [address] [place] [address] Care Team Providers Care Service Parts Coordinator Name Role Phone Paula Tuttle RN Unavailable UnavailWilliam Goncalves MD, PhD Unavailable [phone] Buffy Chung CNP Primary Care Provider [phone] Source Comments In the event this information is protected by the Federal Confidentiality of Alcohol and Drug AbusePatient Records regulations: The Federal rules restrict any use of the information to criminally investigate or prosecute any alcohol or drug abuse patient.[facility] Encounter Details Date Type Department Care Team (Late st Contact Info) Description 03/18/2025 Orders Only Hematology/Oncology [address] [place] [address] [place] [address] [place], [place] [phone] CML (chronic myeloid leukemia) (HCC) (Primary Dx) [...] risk 9 09/09/2024 Data from: https://www.neighborhoodatlas.medicine.[facility]/. Last address used for calculation Daniel [...] 06/08/2025 8:30 AM EST Results Only Main [place] [facility] [id number] [place] [address] STUDY PT 06/08/2025 9:30 AM EST Visit (SP) Office Hematology/Oncology [address] [place] [address] [place] [address] [place] [address] STUDY PT 06/08/2025 9:30 AM EST Nurse Visit Hematology/Oncology [address] [place] [address] Paula Tuttle, MOISÉS [address] [place] [address] STUDY PT 06/08/2025 9:45 AM EST Procedure Hematology/Oncology [address] [place] [address] EKG TO RESEARCH 06/08/2025 12:30 PM EST Office Visit Vascular Medicine [address] [phone] echo to research 09/12/2025 7:00 AM EDT Procedure Cardiology [address] [place] [address] Elevated troponin, history HCM 09/12/2025 7:45 AM EDT Office Visit Preventive Cardiology [address] [place] [address] Collins Beckman MD [address] [place] [address] Elevated troponin, history HCM Scheduled Orders Name Type Priority Associated Diagnoses Orde r Schedule HIGH SENSITIVITY TROPONIN T Lab Routine CML (chronic myeloid leukemia) (HCC) Expected: 03/28/2025, Expires: 06/27/2025 documented as of this encounter Visit Diagnoses Diagnosis CML (chronic myeloid leukemia) (HCC)- Primary Chronic myeloid leukemia, without mention of having achieved remission documented in this encounter Care Teams Service Parts Coordinator Relationship Specialty Start Date End Date Buffy Chung, FREIGHT AIR BRAKE FITTER [address] [place] [address] PCP - General Family Medicine 09/15/23 Paula Tuttle, RN [address] [place] [address] Research Nurse Hematology/Oncology 06/05/20 [place] [address] [place] [address] Physician Hematology/Oncology 06/05/20 documented as of this encounter
--- OUTSIDE RECORDS SUMMARY | 2025-03-21 11:48 | XMS_ITS | Clinical Summary ---
Author Organization [facility] Address [id number] [address] [place] [address] Care Team Providers Care Entry Level Account Executive Name Role Phone Buffy Chung APRN-CASH APPLICATIONS ANALYST Primary Care Provider Allergies Active Allergy Reactions Criticality Noted Date Comments Morphine Nausea And Vomiting 03/11/2023 Opioids - Morphine Analogues Nausea And Vomiting 04/01/2023 Medications insulin glargine (LANTUS, BASAGLAR) 100 unit/mL (3 mL) insulin pen Inject 40 Units under the skin in the morning and 40 Units before bedtime. Active lisinopriL (PRINIVIL,ZESTR IL) 20 mg tablet Take 1 tablet (20 mg total) by mouth in the morning. 09/09/2022 Active insulin lispro (HumaLOG) 100 unit/mL insulin pen in the morning and at noon and in the evening. Take with meals. Sliding scale. 10/30/2022 Active NON FORMULARY Med Name: trial chemo drug, unknown name [id number] Active pravastatin (PRAVACHOL) 80 mg tablet Take 1 tablet (80 mg total) by mouth in the morning. Active amLODIPine (NORVASC) 10 mg tablet Take 1 tablet (10 mg total) by mouth in the morning. Active Active Problems Problem Noted Date Diagnosed Date Abnormal ECG 03/20/2023 Primary hypertension 03/20/2023 GENET (obstructive sleep apnea) 03/20/2023 LVH (left ventricular hypertrophy) 03/20/2023 Cardiomyopathy, hypertrophic 03/20/2023 Chronic myeloid leukemia 04/06/2012 Encounters Date Type Department Care Team Description 03/10/2025 Results Follow-Up [facility] [address] [place] [id number] Kiya Banuelos RN Holter monitor 3-5 days 02/25/2025 3:00 PM EDT - 02/25/2025 11:59 PM EDT Hospital Encounter [facility] - Cardiovascular [address] [place] [address] Mal Coello MD Palpitations Discharge Disposition: Home 02/24/2025 Travel 02/18/2025 8:00 AM EDT Office Visit [facility] [address] [place] [phone] Chris Ken MD Boumegouas, Manel, MD Primary hypertension (Primary Dx); Palpitations; Cardiomyopathy, hypertrophic (CMS-HCC); LVH (left ventricular hypertrophy); GENET (obstructive sleep apnea); Atrial flutter (CMS-HCC); Tachycardia; Nonrheumatic pulmonary valve stenosis; Essential hypertension 02/18/2025 Travel 02/02/2025 Orders Only [facility] [address] [place] [phone] External, Scanning Provider Pain (Primary Dx) 12/22/2024 12:40 PM EDT Ancillary Procedure [facility] [address] [place] [phone] Pain from Last 3 Months Family History Medical [...] 02/18/2025 7:43 AM EDT Plan of Treatment Health Maintenance [...] Procedure Name Priority Date/Time Associated Diagnosis Comments HOLTER MONITOR 3-5 DAYS Routine 02/25/2025 4:34 PM EDT Palpitations POCT EKG Routine 02/18/2025 Primary hypertension Palpitations NON [facility] Routine 12/22/2024 12 :40 PM EDT Pain from Last 3 Months Results * Holter monitor 3-5 days (02/25/2025 4:34 PM EDT) Anatomical Region Laterality Modality Chest N/A Other Narrative 03/10/2025 1:28 PM EDT Baseline rhythm appears to be normal sinus rhythm with normal heart rate variability. Frequent PACs with a burden of 4.4%. Holter monitor was worn for 5 days. With a minimum heart rate of 57 beats per minute. Maximum heart rate of 130 beats per minute. And an average heart rate of 74 beats per minute. There were twenty-three thousand five hundred eighty-eight supraventricular ectopic rhythms noted. The majority of which were isolated PACs. With a total PAC burden of 4.4%. There were several brief runs of atrial tachycardia. The longest of which were 3 beats. There were 71 ventricular ectopic rhythms noted. All of which were isolated PVCs. No significant ventricular arrhythmias were seen. Mal Coello MD CV CARDIAC SERVICES ORDERABL ES Final Result * POCT EKG (02/18/2025) 02/18/2025 Mal Coello MD ECG ORDERABLES Final Result MANUALLY TRANSCRIBED RESULTS * Non [facility] (12/22/2024 12:40 PM EDT) Scanning Provider External CV ECHO ORDERABLES Fi nal Result XCELERA from Last 3 Months Insurance [employer] [address] [id number] [place] [address] WORKERS COMPENSATION [employer] [id number] Care Teams Entry Level Account Executive Relationship Specialty Start Date End Date Buffy Chung, JEANNIE-CASH APPLICATIONS ANALYST PCP - General Nurse Practitioner 05/19/24
--- OUTSIDE RECORDS SUMMARY | 2025-03-21 11:48 | XMS_ITS | Encounter Summary ---
Author Organization [facility] Address [address] [place] [address] Care Team Providers Care Care Transition Manager Name Role Phone Paula Tuttle RN Unavailable UnavailWilliam Goncalves MD, PhD Unavailable [phone] Buffy Chung CNP Primary Care Provider [phone] Source Comments In the event this information is protected by the Federal Confidentiality of Alcohol and Drug AbusePatient Records regulations: The Federal rules restrict any use of the information to criminally investigate or prosecute any alcohol or drug abuse patient.[facility] Reason for Visit * Reason Comments Research [id number] / 20-998 / [id number] Encounter Details Date Type Department Care Team (Late st Contact Info) Description 12/22/2024 Abstract Hematology/Oncology [address] [place] [address] Tarah Harrington, Research Coordinator Research ([id number] / 20-998 / [id number]) Social History Tobacco Use Types Packs/Day Years [...] is lower risk 9 09/09/2024 Data from: https://www.neighborhoodatlas.[facility]/. Last address used for calculation Daniel [...] documented in this encounter Progress Notes * Tarah Harrington, Research Coordinator - 12/22/2024 10:06 AM EDT CRC 1 Documentation IRB#: [id number], [facility]# [id number], Study Title: A phase 1b study of the pharmacokinetics, safety and efficacy of orally administered [id number] in subjects with refractory chronic myeloid leukemia (CML) and PH+ acute lymphoblastic leukemia (PH+ ALL) Informed Consent signed on 06/19/2020, prior to any study related procedures being performed that are not SOC. Pt Study #: 016-002 Treatment Arm: CML CP and AP Patient presents for: Cycle 58 Day 28 The following research tasks have been completed per protocol: EKGs (Triplicate): Yes Given to RN/LARA Pierce for review. Tarah Harrington, Research Coordinator documented in this encounter Plan of Treatment Upcoming Encounters Date Type Department Care Team (Latest Contact Info) Description 06/08/2025 8:30 AM EST Results Only [facility] [address] [phone] STUDY PT 06/08/2025 9:30 AM EST Visit (SP) Office Hematology/Oncology [address] [place] [address] [place] [address] [place] [address] STUDY PT 06/08/2025 9:30 AM EST Nurse Visit Hematology/Oncology [address] [place], [place] [phone] Paula Tuttle, MOISÉS [address] [place] [address] STUDY PT 06/08/2025 9:45 AM EST Procedure Hematology/Oncology [address] [place] [address] EKG TO RESEARCH 06/08/2025 12:30 PM EST Office Visit Vascular Medicine [address] [place] [address] echo to research 09/12/2025 7:00 AM EDT Procedure Cardiology [address] [place] [address] Elevated troponin, history HCM 09/12/2025 7:45 AM EDT Office Visit Preventive Cardiology [address] [place], [place] [phone] Collins Beckman MD [address] [place] [address] Elevated troponin, history HCM documented as of this encounter Visit Diagnoses Not on filedocumented in this encounter Care Teams Care Transition Manager Relationship Specialty Start Date End Date Buffy Chung, SHOTWELD OPERATOR [address] [place] [address] PCP - General Family Medicine 09/15/23 Paula Tuttle, RN [address] [place] [address] Research Nurse Hematology/Oncology 06/05/20 [place] [address] [place], [place] [phone] Physician Hematology/Oncology 06/05/20 documented as of this encounter
--- OUTSIDE RECORDS SUMMARY | 2025-03-21 11:48 | XMS_ITS | Encounter Summary ---
Author Organization [facility] Address [address] [place] [address] Care Team Providers Care Wick Tender Name Role Phone William Cavazos MD, PhD Unavailable [phone] Karl Gonzalez DO Primary Care Provider Paula Tuttle RN Unavailable UnavailIsrael Armstrong RN Unavailable Unavailable Aman Mathias MD Primary Care Provider [phone] Paula Tuttle RN Unavailable UnavailWilliam Goncalves MD, PhD Unavailable [phone] Aman Mathias MD Primary Care Provider [phone] Buffy Chung CNP Primary Care Provider [phone] Source Comments In the event this information is protected by the Federal Confidentiality of Alcohol and Drug AbusePatient Records regulations: The Federal rules restrict any use of the information to criminally investigate or prosecute any alcohol or drug abuse patient.[facility] Encounter Details Date Type Department Care Team (Late st Contact Info) Description 10/03/2017 Patient Msg Dermatology [address] [place] [address] WheelerChris [address] [place] [address] [facility] Social History Tobacco Use Types [...] 06/08/2025 8:30 AM EST Results Only Main [place] [address] [place] [address] STUDY PT 06/08/2025 9:30 AM EST Visit (SP) Office Hematology/Oncology [address] [place] [address] [place] [address] [place] [address] STUDY PT 06/08/2025 9:30 AM EST Nurse Visit Hematology/Oncology [address] [place] [address] Paula Tuttle, MOISÉS [address] [place] [address] STUDY PT 06/08/2025 9:45 AM EST Procedure Hematology/Oncology [address] [place] [address] EKG TO RESEARCH 06/08/2025 12:30 PM EST Office Visit Vascular Medicine [address] [place] [address] echo to research 09/12/2025 7:00 AM EDT Procedure Cardiology [address] [phone] Elevated troponin, history HCM 09/12/2025 7:45 AM EDT Office Visit Preventive Cardiology [address] [place] [address] Collins Beckman MD [address] [place] [address] Elevated troponin, history HCM documented as of this encounter Visit Diagnoses Not on filedocumented in this encounter Care Teams Wick Tender Relationship Specialty Start Date End Date Karl GonzalezDO [address] [place] [address] PCP - General Family Medicine 03/12/16 04/30/20 Aman Mathias MD [address] [place] [address] PCP - General Family Medicine 05/01/20 09/02/21 Aman Mathias MD [address] [place] [address] PCP - General Family Medicine 09/03/21 09/14/23 Buffy Chung, LEATHER PRODUCTION ARTISAN [address] [place] [address] PCP - General Family Medicine 09/15/23 William Cavazos MD, PhD [address] [place] [address] Physician Hematology/Oncology 11/29/14 04/30/20 Paula Tuttle, RN [address] [place] [address] Research Nurse Hematology/Oncology 05/19/17 01/31/20 Israel Hanson RN Specialty Manager Compensation Hematology/Oncology 03/10/20 04/30/20 Paula Tuttle, RN [address] [place] [address] Research Nurse Hematology/Oncology 06/05/20 [place] [address] [place] [address] Physician Hematology/Oncology 06/05/20 documented as of this encounter
--- OUTSIDE RECORDS SUMMARY | 2025-03-21 11:48 | XMS_ITS | Encounter Summary ---
Author Organization [facility] Address [facility] [place] [address] Care Team Providers Care Bridal Stylist Sales Consultant Name Role Phone Paula Tuttle RN Unavailable UnavailWilliam Goncalves MD, PhD Unavailable [phone] Aman Mathias MD Primary Care Provider [phone] Buffy Chung CNP Primary Care Provider [phone] Source Comments In the event this information is protected by the Federal Confidentiality of Alcohol and Drug AbusePatient Records regulations: The Federal rules restrict any use of the information to criminally investigate or prosecute any alcohol or drug abuse patient.[facility] Encounter Details Date Type Department Care Team (Late st Contact Info) Description 05/23/2023 Patient Msg Appointment Center [address] [place] [phone] Provider, Ccf ORTHOPAEDICS CONSULT Social History Tobacco [...] is lower risk 7 10/15/2022 Data from: https://www.neighborhoodatlas.med[facility]/. Last address used for calculation [address] [...] 06/08/2025 8:30 AM EST Results Only Main [place] [address] [address] [place] [address] STUDY PT 06/08/2025 9:30 AM EST Visit (SP) Office Hematology/Oncology [address] [place] [address] [place] [address] [place] [address] STUDY PT 06/08/2025 9:30 AM EST Nurse Visit Hematology/Oncology [address] [place] [address] Paula Tuttle RN [address] [place] [address] STUDY PT 06/08/2025 9:45 AM EST Procedure Hematology/Oncology [address] [place] [address] EKG TO RESEARCH 06/08/2025 12:30 PM EST Office Visit Vascular Medicine [address] [phone] echo to research 09/12/2025 7:00 AM EDT Procedure Cardiology [address] [place], [place] [phone] Elevated troponin, history HCM 09/12/2025 7:45 AM EDT Office Visit Preventive Cardiology [address] [place] [address] Collins Beckman MD [address] [phone] Elevated troponin, history HCM documented as of this encounter Visit Diagnoses Not on filedocumented in this encounter Care Teams Bridal Stylist Sales Consultant Relationship Specialty Start Date End Date Aman Mathias MD [address] [place] [address] PCP - General Family Medicine 09/03/21 09/14/23 Buffy Chung, HABITAT MANAGEMENT COORDINATOR [address] [place] [address] PCP - General Family Medicine 09/15/23 Paula Tuttle RN [address] [place] [address] Research Nurse Hematology/Oncology 06/05/20 [place] [address] [phone] Physician Hematology/Oncology 06/05/20 documented as of this encounter
--- OUTSIDE RECORDS SUMMARY | 2025-03-21 11:48 | XMS_ITS | Encounter Summary ---
Author Organization [facility] Address [address] [place] [address] Care Team Providers Care Corrugator Helper Name Role Phone Paula Tuttle RN Unavailable UnavailWilliam Goncalves MD, PhD Unavailable [phone] Aman Mathias MD Primary Care Provider [phone] Buffy Chung CNP Primary Care Provider [phone] Source Comments In the event this information is protected by the Federal Confidentiality of Alcohol and Drug AbusePatient Records regulations: The Federal rules restrict any use of the information to criminally investigate or prosecute any alcohol or drug abuse patient.[facility] Reason for Visit * Reason Comments Radiology CT Encounter Details Date Type Department Care Team ([facility] Contact Info) Description 05/16/2022 Radiology Radiology [address] [place] [address] Aman Mathias MD [address] [place], [place] [phone] Rad[address] CT Social History Tobacco Use Types [...] N ot on file 11/26/2021 Data from: https://www.neighborhoodatlas.[facility]/. Last address used for calculation [address] [...] Description 06/08/2025 8:30 AM EST Results Only [facility] [address] [address] [place] [address] STUDY PT 06/08/2025 9:30 AM EST Visit (SP) Office Hematology/Oncology [address] [place] [address] [place] [address] [place] [address] STUDY PT 06/08/2025 9:30 AM EST Nurse Visit Hematology/Oncology [address] [place] [address] Paula Tuttle, MOISÉS [address] [place] [address] STUDY PT 06/08/2025 9:45 AM EST Procedure Hematology/Oncology [address] [place] [address] EKG TO RESEARCH 06/08/2025 12:30 PM EST Office Visit Vascular Medicine [address] [phone] echo to research 09/12/2025 7:00 AM EDT Procedure Cardiology [address] [place], [place] [phone] Elevated troponin, history HCM 09/12/2025 7:45 AM EDT Office Visit Preventive Cardiology [address] [place], [place] [phone] Collins Beckman MD [address] [place] [address] Elevated troponin, history HCM documented as of this encounter Visit Diagnoses Not on filedocumented in this encounter Care Teams Corrugator Helper Relationship Specialty Start Date End Date Aman Mathias MD [address] [place] [address] PCP - General Family Medicine 09/03/21 09/14/23 Buffy Chung, LAWYER CRIMINAL [address] [place] [address] PCP - General Family Medicine 09/15/23 Paula Tuttle RN [address] [place] [address] Research Nurse Hematology/Oncology 06/05/20 [place] [address] [place] [address] Physician Hematology/Oncology 06/05/20 documented as of this encounter
--- OUTSIDE RECORDS SUMMARY | 2025-03-21 11:48 | XMS_ITS | Encounter Summary ---
Author Organization [facility] Address [address] [place] [address] Care Team Providers Care Dairy Frozen Manager Name Role Phone William Cavazos MD, PhD Unavailable [phone] Karl Gonzalez DO Primary Care Provider Paula Tuttle RN Unavailable UnavailIsrael Armstrong RN Unavailable Unavailable Aman Mathias MD Primary Care Provider [phone] Paula Tuttle RN Unavailable UnavailWilliam Goncalves MD, PhD Unavailable [phone] Amna Mathias MD Primary Care Provider [phone] Buffy Chung CNP Primary Care Provider [phone] Source Comments In the event this information is protected by the Federal Confidentiality of Alcohol and Drug AbusePatient Records regulations: The Federal rules restrict any use of the information to criminally investigate or prosecute any alcohol or drug abuse patient.[facility] Encounter Details Date Type Department Care Team (Late st Contact Info) Description 08/14/2017 Patient Msg Medical Records [address] [place] [address] Provider, Ccf derm appt tomorrow 11:00 a.m. [...] 06/08/2025 8:30 AM EST Results Only Main [place] [address] [address] [place] [address] STUDY PT 06/08/2025 9:30 AM EST Visit (SP) Office Hematology/Oncology [address] [place] [address] [place] [address] [place] [address] STUDY PT 06/08/2025 9:30 AM EST Nurse Visit Hematology/Oncology [address] [place] [address] Paula Tuttle RN [address] [place] [address] STUDY PT 06/08/2025 9:45 AM EST Procedure Hematology/Oncology [address] [place] [address] EKG TO RESEARCH 06/08/2025 12:30 PM EST Office Visit Vascular Medicine [address] [place], [place] [address] echo to research 09/12/2025 7:00 AM EDT Procedure Cardiology [address] [place], [place] 6[address] Elevated troponin, history HCM 09/12/2025 7:45 AM EDT Office Visit Preventive Cardiology [address] [place], [place] [phone] Collins Beckman MD [address] [place] [id number] Elevated troponin, history HCM documented as of this encounter Visit Diagnoses Not on filedocumented in this encounter Care Teams Dairy Frozen Manager Relationship Specialty Start Date End Date CarlosKarl SharDO [address] [place] [address] PCP - General Family Medicine 03/12/16 04/30/20 Aman Mathias MD [address] [place] [address] PCP - General Family Medicine 05/01/20 09/02/21 Aman Mathias MD [address] [place] [address] PCP - General Family Medicine 09/03/21 09/14/23 Buffy Chung, SUPERVISOR [employer] [address] [place] [address] PCP - General Family Medicine 09/15/23 William Cavazos MD, PhD [address] [place] [address] Physician Hematology/Oncology 11/29/14 04/30/20 Paula Tuttle, RN [address] [place] [address] Research Nurse Hematology/Oncology 05/19/17 01/31/20 Israel Hanson RN Specialty Artist'S Manager Hematology/Oncology 03/10/20 04/30/20 Paula Tuttle, RN [address] [place] [address] Research Nurse Hematology/Oncology 06/05/20 [place] [address] [place] [address] Physician Hematology/Oncology 06/05/20 documented as of this encounter
--- OUTSIDE RECORDS SUMMARY | 2025-03-21 11:48 | XMS_ITS | Encounter Summary ---
Author Organization [facility] Address [address] [place] [address] Care Team Providers Care Statistics Teacher Name Role Phone Paula Tuttle RN Unavailable UnavailWilliam Goncalves MD, PhD Unavailable [phone] Aman Mathias MD Primary Care Provider [phone] Buffy Chung CNP Primary Care Provider [phone] Source Comments In the event this information is protected by the Federal Confidentiality of Alcohol and Drug AbusePatient Records regulations: The Federal rules restrict any use of the information to criminally investigate or prosecute any alcohol or drug abuse patient.[facility] Encounter Details Date Type Department Care Team (Late st Contact Info) Description 05/20/2023 Patient Msg PAS MAIN [address] [facility] [address] Provider, Ccf Financial Clearance Status Social History [...] is lower risk 7 10/15/2022 Data from: https://www.neighborhoodatlas.medicine.[facility]/. Last address used for calculation [address] [...] 06/08/2025 8:30 AM EST Results Only Main [place] [address] [address] [place] [address] STUDY PT 06/08/2025 9:30 AM EST Visit (SP) Office Hematology/Oncology [address] [place] [address] [place] [address] [place] [address] STUDY PT 06/08/2025 9:30 AM EST Nurse Visit Hematology/Oncology [address] [place] [address] Paula Tuttle RN [address] [place] [address] STUDY PT 06/08/2025 9:45 AM EST Procedure Hematology/Oncology [address] [place] [address] EKG TO RESEARCH 06/08/2025 12:30 PM EST Office Visit Vascular Medicine [address] [place] [phone] echo to research 09/12/2025 7:00 AM EDT Procedure Cardiology [address] [place], [place] [phone] Elevated troponin, history HCM 09/12/2025 7:45 AM EDT Office Visit Preventive Cardiology [address] [place] [phone] Collins Beckman MD [address] [place] [phone] Elevated troponin, history HCM documented as of this encounter Visit Diagnoses Not on filedocumented in this encounter Care Teams Statistics Teacher Relationship Specialty Start Date End Date Aman Mathias MD [address] [place] [address] PCP - General Family Medicine 09/03/21 09/14/23 Buffy Chung, SONOSCOPE OPERATOR [address] [place] [address] PCP - General Family Medicine 09/15/23 Paula Tuttel RN [address] [place] [address] Research Nurse Hematology/Oncology 06/05/20 [place] [address] [place] [phone] Physician Hematology/Oncology 06/05/20 documented as of this encounter
--- OUTSIDE RECORDS SUMMARY | 2025-03-21 11:48 | XMS_ITS | Encounter Summary ---
Author Organization [facility] Address [address] [place] [address] Care Team Providers Care Night Filler Name Role Phone Paula Tuttle RN Unavailable UnavailWilliam Goncalves MD, PhD Unavailable [phone] Aman Mathias MD Primary Care Provider [phone] Buffy Chung CNP Primary Care Provider [phone] Source Comments In the event this information is protected by the Federal Confidentiality of Alcohol and Drug AbusePatient Records regulations: The Federal rules restrict any use of the information to criminally investigate or prosecute any alcohol or drug abuse patient.[facility] Encounter Details Date Type Department Care Team (Late st Contact Info) Description 10/29/2022 Patient Msg Angio [address] [place] [address] Provider, Ccf pre procedure instructions for 11/01/22 [...] is lower risk 7 10/15/2022 Data from: https://www.neighborhoodatlas.medicine.[facility]/. Last address used for calculation [...] 06/08/2025 8:30 AM EST Results Only Main [place] [address] [place] [address] STUDY PT 06/08/2025 9:30 AM EST Visit (SP) Office Hematology/Oncology [address] [place] [address] [place] [address] [place] [address] [place] [address] STUDY PT 06/08/2025 9:30 AM EST Nurse Visit Hematology/Oncology [address] [place] [address] Paula Tuttle RN [address] [place] [address] STUDY PT 06/08/2025 9:45 AM EST Procedure Hematology/Oncology [address] [place], [place] [address] EKG TO RESEARCH 06/08/2025 12:30 PM EST Office Visit Vascular Medicine [address] [place] [phone] echo to research 09/12/2025 7:00 AM EDT Procedure Cardiology [address] [place] [address] Elevated troponin, history HCM 09/12/2025 7:45 AM EDT Office Visit Preventive Cardiology [address] [place] [phone] Collins Beckman MD [address] [place] [phone] Elevated troponin, history HCM documented as of this encounter Visit Diagnoses Not on filedocumented in this encounter Care Teams Night Filler Relationship Specialty Start Date End Date Aman Mathias MD [address] [place] [address] PCP - General Family Medicine 09/03/21 09/14/23 Buffy Chung, DYE TUB OPERATOR [address] [place] [address] PCP - General Family Medicine 09/15/23 Paula Tuttle RN [address] [place] [address] Research Nurse Hematology/Oncology 06/05/20 [place] [address] [place] [phone] Physician Hematology/Oncology 06/05/20 documented as of this encounter
--- OUTSIDE RECORDS SUMMARY | 2025-03-21 11:48 | XMS_ITS | Encounter Summary ---
Author Organization [facility] Address [facility] [place] [address] Care Team Providers Care Bulk Pallet Builder Name Role Phone Aman Mathias MD Primary Care Provider [phone] Paula Tuttle RN Unavailable Unavaillegacy [facility] William Clemons MD, PhD Unavailable [phone] Aman Mathias MD Primary Care Provider [phone] Buffy Chung CNP Primary Care Provider [phone] Source Comments In the event this information is protected by the Federal Confidentiality of Alcohol and Drug AbusePatient Records regulations: The Federal rules restrict any use of the information to criminally investigate or prosecute any alcohol or drug abuse patient.[facility] Encounter Details Date Type Department Care Team (Late st Contact Info) Description 09/08/2020 Patient Msg Angio [address] [place] [address] Provider, Ccf Pre procedure instructions 09/15 Social [...] N ot on file 05/15/2020 Data from: https://www.neighborhoodatlas.medicine.[facility]/. Last address used for [...] 06/08/2025 8:30 AM EST Results Only Main [place] [address] [address] [place] [address] STUDY PT 06/08/2025 9:30 AM EST Visit (SP) Office Hematology/Oncology [address] [place] [address] [place] [address] [place] [address] STUDY PT 06/08/2025 9:30 AM EST Nurse Visit Hematology/Oncology [address] [place] [address] Paula Tuttle, MOISÉS [address] [place] [address] STUDY PT 06/08/2025 9:45 AM EST Procedure Hematology/Oncology [address] [place] [address] EKG TO RESEARCH 06/08/2025 12:30 PM EST Office Visit Vascular Medicine [address] [place] [address] echo to research 09/12/2025 7:00 AM EDT Procedure Cardiology [address] [place] [address] Elevated troponin, history HCM 09/12/2025 7:45 AM EDT Office Visit Preventive Cardiology [address] [place] [address] Collins Beckman MD [address] [place] [phone] Elevated troponin, history HCM documented as of this encounter Visit Diagnoses Not on filedocumented in this encounter Care Teams Bulk Pallet Builder Relationship Specialty Start Date End Date Aman Mathias MD [address] [place] [address] PCP - General Family Medicine 05/01/20 09/02/21 Aman Mathias MD [address] [place] [address] PCP - General Family Medicine 09/03/21 09/14/23 Buffy Chung, CABLE TOOL DRILLER [address] [place] [address] PCP - General Family Medicine 09/15/23 Paula Tuttle, RN [address] [place] [address] Research Nurse Hematology/Oncology 06/05/20 [place] [address] [address] [place], [place] 8411[address] Physician Hematology/Oncology 06/05/20 documented as of this encounter
--- OUTSIDE RECORDS SUMMARY | 2025-03-21 11:48 | XMS_ITS | Encounter Summary ---
Author Organization [facility] Address [facility] [place] [address] Care Team Providers Care Medical Director Occupational Health Name Role Phone Paula Tuttle RN Unavailable UnavailWilliam Goncalves MD, PhD Unavailable [phone] Buffy Chung CNP Primary Care Provider [phone] Source Comments In the event this information is protected by the Federal Confidentiality of Alcohol and Drug AbusePatient Records regulations: The Federal rules restrict any use of the information to criminally investigate or prosecute any alcohol or drug abuse patient.[facility] Encounter Details Date Type Department Care Team (Late st Contact Info) Description 03/11/2025 Patient Msg Angio [address] [place] [address] Provider, Luis M Pre procedure instructions 03/18 Social History Tobacco Use Types Packs/Day Years [...] is lower risk 9 09/09/2024 Data from: https://www.neighborhoodatlas.medicine.[facility]/. Last address used for calculation Daniel MCINTYRE [...] 06/08/2025 8:30 AM EST Results Only Main [place] [address] [address] [place] [address] STUDY PT 06/08/2025 9:30 AM EST Visit (SP) Office Hematology/Oncology [address] [place] [address] [place] [address] [place] [address] STUDY PT 06/08/2025 9:30 AM EST Nurse Visit Hematology/Oncology [address] [place] [address] Paula Tuttle, RN [address] [place] [address] STUDY PT 06/08/2025 9:45 AM EST Procedure Hematology/Oncology [address] [place] [address] EKG TO RESEARCH 06/08/2025 12:30 PM EST Office Visit Vascular Medicine 9[address] [place] [address] echo to research 09/12/2025 7:00 AM EDT Procedure Cardiology [address] [place] [address] Elevated troponin, history HCM 09/12/2025 7:45 AM EDT Office Visit Preventive Cardiology [address] [place] [address] Collins Beckman MD [address] [place] [address] Elevated troponin, history HCM documented as of this encounter Visit Diagnoses Not on filedocumented in this encounter Care Teams Medical Director Occupational Health Relationship Specialty Start Date End Date Buffy Chung, ARTIFICIAL BREEDING RANCH SUPERVISOR [facility] [place] [address] PCP - General Family Medicine 09/15/23 Paula Tuttle, MOISÉS [address] [place] [address] Research Nurse Hematology/Oncology 06/05/20 [place] [address] [place] [address] Physician Hematology/Oncology 06/05/20 documented as of this encounter
--- OUTSIDE RECORDS SUMMARY | 2025-03-21 11:49 | XMS_ITS | Encounter Summary ---
Author Organization [facility] Address [address] [place] [address] Care Team Providers Care Sports Equipment Repairer Name Role Phone Paula Tuttle RN Unavailable UnavailWilliam Goncalves MD, PhD Unavailable [phone] Aman Mathias MD Primary Care Provider [phone] Buffy Chung CNP Primary Care Provider [phone] Source Comments In the event this information is protected by the Federal Confidentiality of Alcohol and Drug AbusePatient Records regulations: The Federal rules restrict any use of the information to criminally investigate or prosecute any alcohol or drug abuse patient.[facility] Reason for Visit * Reason Comments Radiology XR Encounter Details Date Type Department Care Team (Late st Contact Info) Description 06/13/2023 Radiology Radiology [address] [place], [place] [phone] Kelle Pacheco RT(R) Radiology XR Social History [...] is lower risk 7 10/15/2022 Data from: https://www.neighborhoodatlas.medicine.[facility]/. Last address used for calculation [address] [...] 06/08/2025 8:30 AM EST Results Only Main [facility] [address] [place] [address] STUDY PT 06/08/2025 9:30 AM EST Visit (SP) Office Hematology/Oncology [address] [place] [address] William Cavazos MD, PhD [address] [place] [address] STUDY PT 06/08/2025 9:30 AM EST Nurse Visit Hematology/Oncology [address] [place] [place] [address] Paula Tuttle RN [address]00 [place] [address] STUDY PT 06/08/2025 9:45 AM EST Procedure Hematology/Oncology [address] [place] [address] EKG TO RESEARCH 06/08/2025 12:30 PM EST Office Visit Vascular Medicine 9[address] [place] [address] echo to research 09/12/2025 7:00 AM EDT Procedure Cardiology [address] [place] [address] Elevated troponin, history HCM 09/12/2025 7:45 AM EDT Office Visit Preventive Cardiology [address] [place] [address] Collins Beckman MD [address] [place] [address] Elevated troponin, history HCM documented as of this encounter Visit Diagnoses Not on filedocumented in this encounter Care Teams Sports Equipment Repairer Relationship Specialty Start Date End Date Aman Mathias MD [address] [place] [address] PCP - General Family Medicine 09/03/21 09/14/23 Buffy Chung, GEAR SHAPER SET UP OPERATOR [address] [facility] [place] [address] PCP - General Family Medicine 09/15/23 Paula Tuttle, MOISÉS [address] [place] [address] Research Nurse Hematology/Oncology 06/05/20 [place] [address] [place] [address] Physician Hematology/Oncology 06/05/20 documented as of this encounter
--- OUTSIDE RECORDS SUMMARY | 2025-03-21 11:49 | XMS_ITS | Encounter Summary ---
Author Organization [facility] Address [address] [place] [address] Care Team Providers Care Exchange Clerk Name Role Phone William Cavazos MD, PhD Unavailable [phone] Karl Gonzalez DO Primary Care Provider Paula Tuttle RN Unavailable UnavailIsrael Armstrong RN Unavailable Unavailable Aman Mathias MD Primary Care Provider [phone] Paula Tuttle RN Unavailable UnavailWilliam Goncalves MD, PhD Unavailable [phone] Aman Mathias MD Primary Care Provider [phone] Buffy Chung CNP Primary Care Provider [phone] Source Comments In the event this information is protected by the Federal Confidentiality of Alcohol and Drug AbusePatient Records regulations: The Federal rules restrict any use of the information to criminally investigate or prosecute any alcohol or drug abuse patient.[facility] Encounter Details Date Type Department Care Team (Late st Contact Info) Description 06/18/2017 Patient Msg Hematology/Oncology [address] [place] [address] Provider, Ccf APPOINTMENT REMINDER Social History Tobacco [...] 06/08/2025 8:30 AM EST Results Only Main [place] [address] [address] [place] [address] STUDY PT 06/08/2025 9:30 AM EST Visit (SP) Office Hematology/Oncology [address] [place] [address] [place] [address] [place] [address] STUDY PT 06/08/2025 9:30 AM EST Nurse Visit Hematology/Oncology [address] [place] [address] Paula Tuttle RN [address] [place] [address] STUDY PT 06/08/2025 9:45 AM EST Procedure Hematology/Oncology [address] [place] [address] EKG TO RESEARCH 06/08/2025 12:30 PM EST Office Visit Vascular Medicine 9[address] [place] [address] echo to research 09/12/2025 7:00 AM EDT Procedure Cardiology [address] [place] [address] Elevated troponin, history HCM 09/12/2025 7:45 AM EDT Office Visit Preventive Cardiology [address] [place] [address] Collins Beckman MD [address] [place] [address] Elevated troponin, history HCM documented as of this encounter Visit Diagnoses Not on filedocumented in this encounter Care Teams Exchange Clerk Relationship Specialty Start Date End Date Karl Gonzalez DO [address] [place] [address] PCP - General Family Medicine 03/12/16 04/30/20 Aman Mathias MD [address] [place] [address] PCP - General Family Medicine 05/01/20 09/02/21 Aman Mathias MD [address] [place] [address] PCP - General Family Medicine 09/03/21 09/14/23 Buffy Chung, ENTRY LEVEL TRUCK DRIVER [address] [place] [address] PCP - General Family Medicine 09/15/23 William Cavazos MD, PhD 9500 [place] [address] Physician Hematology/Oncology 11/29/14 04/30/20 Paula Tuttle, MOISÉS [address] [place] [address] Research Nurse Hematology/Oncology 05/19/17 01/31/20 Israel Hanson RN Specialty Channel Account Manager Hematology/Oncology 03/10/20 04/30/20 Paula Tuttle, MOISÉS [address] [place] [address] Research Nurse Hematology/Oncology 06/05/20 William Cavazos MD, PhD [address] [place] [address] Physician Hematology/Oncology 06/05/20 documented as of this encounter
--- OUTSIDE RECORDS SUMMARY | 2025-03-21 11:49 | XMS_ITS | Encounter Summary ---
Author Organization [facility] Address [address] [place] [address] Care Team Providers Care Access Rn Name Role Phone William Cavazos MD, PhD Unavailable [phone] Karl Gonzalez DO Primary Care Provider Israel Hanson RN Unavailable Unavailable Aman Mathias MD Primary Care Provider [phone] Paula Tuttle RN Unavailable Unavailabl e William Cavazos MD, PhD Unavailable [phone] Aman Mathias MD Primary Care Provider [phone] Buffy Chung CNP Primary Care Provider [phone] Source Comments In the event this information is protected by the Federal Confidentiality of Alcohol and Drug AbusePatient Records regulations: The Federal rules restrict any use of the information to criminally investigate or prosecute any alcohol or drug abuse patient.[facility] Encounter Details Date Type Department Care Team (Late st Contact Info) Description 03/29/2020 Get Medical Advice Hematology/Oncology [address] [place] [address] [place] [address] [address] [place] [phone] RE: Non-Urgent Medical Question Social History Tobacco [...] 06/08/2025 8:30 AM EST Results Only Main [place] [address] [address] [place] [address] STUDY PT 06/08/2025 9:30 AM EST Visit (SP) Office Hematology/Oncology [address] [place] [address] William Cavazos MD, PhD [address] [place] [address] STUDY PT 06/08/2025 9:30 AM EST Nurse Visit Hematology/Oncology [address] [place] [address] Paula Tuttle RN [address]00 [place] [address] STUDY PT 06/08/2025 9:45 AM EST Procedure Hematology/Oncology [address] [place] [address] EKG TO RESEARCH 06/08/2025 12:30 PM EST Office Visit Vascular Medicine [address] [place] [address] echo to research 09/12/2025 7:00 AM EDT Procedure Cardiology [address] [place] [address] Elevated troponin, history HCM 09/12/2025 7:45 AM EDT Office Visit Preventive Cardiology 9[address] [place] [address] Collins Beckman MD [address]00 [place] [address] Elevated troponin, history HCM documented as of this encounter Visit Diagnoses Not on filedocumented in this encounter Care Teams Access Rn Relationship Specialty Start Date End Date CarlosKarlDO [address] [place] [address] PCP - General Family Medicine 03/12/16 04/30/20 Aman Mathias MD [address] [place] [address] PCP - General Family Medicine 05/01/20 09/02/21 Aman Mathias MD [address] [place] [address] PCP - General Family Medicine 09/03/21 09/14/23 Buffy Chung, CAR WASH ATTENDANT [address] [place] [address] PCP - General Family Medicine 09/15/23 William Cavazos MD, PhD [address] [place] [address] Physician Hematology/Oncology 11/29/14 04/30/20 Israel Hanson, RN Specialty [employer] Principal Hematology/Oncology 03/10/20 04/30/20 Paula Tuttle, MOISÉS [address] [place] [address] Research Nurse Hematology/Oncology 06/05/20 [place] [address] [place] [address] Physician Hematology/Oncology 06/05/20 documented as of this encounter
--- OUTSIDE RECORDS SUMMARY | 2025-03-21 11:49 | XMS_ITS | Encounter Summary ---
Author Organization [facility] Address [address] [place] [address] Care Team Providers Care Regional Telecommunications Specialist Name Role Phone Buffy Chung NP Unavailable [phone] Aman Mathias MD Primary Care Provider [phone] Encounter Details Date Type Department Care Team [...] Office Visit [facility] [address] [place] [address] Yaniv Thompson NP [address] [place] [address] documented as of this encounter [...] 1:37 PM EST Echocardiography Report: Transthoracic Echo [facility] J35 Date of service: 06/16/2024 12:59:29 PM CLEANER Ordering physician: GEORGIANA COLBY Indication: Baseline and serial evaluation in a patient undergoing therapy with cardiotoxic agents Technologist: Yolis Avilez RD Interpreting physician: Berry Yuan MD PATIENT: Name: MR. ZACHARY MERRITT JR : 1970 Age: 53 years [...] with the prior echocardiographic exam performed on 03/17/2024. Similar findings. * * * Final * * * CC Thumbs Up Medical Image : [id number]^[employer]^SI^SUID Procedure Note Radiology, Radiologist, - 06/16/2024 Echocardiography Report: Transthoracic Echo [facility] J35 Date of service: 06/16/2024 12:59:29 PM CLEANER Ordering physician: GEORGIANA COLBY Indication: Baseline and serial evaluation in a patient undergoing therapywith cardiotoxic agents Technologist: Yolis Avilez [facility] Interpreting physician: Berry Yuan MD PATIENT: Name: MR. ZACHARY MERRITT JR : 1970 Age: 53 years [...] * * * Final * * * [employer] Medical Image :[id number]^[employer]^SI^SUID us Generic External Data Provider [facility] IMAGING Final Result * MISC SEND OUT TST 1 (06/16/2024 9:29 AM EST) Pathologist [facility] C[facility] TEST 1 CCF Comment:Research CCF TEST RESULTS 1 CCF Comment:Research REFERRAL LAB 1 (DROP-DOWN) CCF Comment:Research 06/16/2024 9:29 AM EST 06/16/2024 9:30 AM EST Narrative CLINISYNC - 06/23/2024 10:01 AM EST Specimen Type: BLOOD SPECIMEN Ordering Facility: [facility] Address: [address] [place] [address] Original Ordering Provider: TYRONE HOWELL Generic External Data Provider CLINISYNC F inal Result Performing Organization Address [facility] de Phone Number CLINMARGRETNC CCF * [facility]CF BCR/ABL1 P210 %IS PANEL (06/16/2024 9:29 AM EST) [facility] CCF BCR/ABL1 P210 %IS 0.2795 CCF CCF BCR/ABL1 P210 MR 2.55 CCF 06/16/2024 9:29 AM EST 06/16/2024 10:00 AM EST Narrative CLINISYNC - 06/21/2024 9:16 AM EST Specimen Type: BLOOD SPECIMEN Ordering Facility: [facility] Address: [address] [place] [address] Original Ordering Provider: TYRONE HOWELL Generic External Data Provider CLINISYNC F inal Result Performing Organization Address [facility] Co de Phone Number CLINISYNC CCF [address] [place], [place] [address] [address] [place] [address] * CCF BCR/ABL1 P210 QUANTITATIVE PCR BLOOD (06/16/2024 9:29 AM EST) [facility] BCR/ABL1 P210 INTERPRETATION CCF Comment: BCR/ABL1 p210 Quantitative PCR Laboratory Accession Number: [id number] Result: DETECTED MR: 2.55 %IS: 0.2795 Interpretation: p210 BCR/ABL1 transcripts were detected. Quantitative results are expressed on the International Scale (IS) and a log molecular response (MR) is calculated. On this scale, a value of less than or equal to 0.1% corresponds to a major molecular response (MMR or MR3.0). Methodology: The [employer] QuantideX BCR/ABL IS assay is an FDA-cleared [...] Blood 2006;108:28-37; Cross et al, Leukemia 2015;29:999-1003 As reviewed by Yancy Araya MD 06/16/2024 9:29 AM EST 06/16/2024 11:28 AM EST Narrative TREVOR - 06/18/2024 5:39 PM EST Specimen Type: BLOOD SPECIMEN Ordering Facility: [facility] Address: [address] [place] [address] Original Ordering Provider: TYRONE HOWELL us Generic External Data Provider [place] [address] [place], [place] [address] [place] [address] documented in this encounter Visit Diagnoses Not on filedocumented in this encounter Care Teams Regional Telecommunications Specialist Relationship Specialty Start Date End Date Aman Mathias MD PCP - General Family Medicine 04/08/24 Buffy Chung NP Nurse Practitioner Family Medicine 08/07/23 documented as of this encounter
--- OUTSIDE RECORDS SUMMARY | 2025-03-21 11:49 | XMS_ITS | Encounter Summary ---
Author Organization [facility] Address [address] [place] [address] Care Team Providers Care C Developer Name Role Phone Buffy Chung NP Unavailable [phone] Aman Mathias MD Primary Care Provider [phone] Encounter Details Date Type Department Care Team (Late st Contact Info) Description 05/27/2024 Orders Only [facility] [address] [place] [address] Unallocated, Noms Provider, [address] [place] [address] Social History Tobacco Use Types Packs/Day Years [...] Description 07/25/2025 8:15 AM EST [facility] [address] [place] [address] Yaniv Thompson NP [address] [place] [address] documented as of this encounter Procedures Procedure Name Priority Date/Time Associated Diagnosis Comments MR SHOULDER LEFT WO IV CONTRAST Routine 05/27/2024 1:41 PM EST documented in this encounter Results * MR shoulder left wo IV contrast (05/27/2024 1:41 PM EST) Anatomical Region Laterality Modality Upper Extremities, Shoulder Left Magn etic Resonance us Noms Provider Unallocated MD RODRIGUEZ MRI PROCEDURES Final Result documented in this encounter Visit Diagnoses Not on filedocumented in this encounter Care Teams C Developer Relationship Specialty Start Date End Date Aman Mathias MD PCP - General Family Medicine 04/08/24 Buffy Chung NP Nurse Practitioner Family Medicine 08/07/23 documented as of this encounter
--- OUTSIDE RECORDS SUMMARY | 2025-03-21 11:49 | XMS_ITS | Encounter Summary ---
Author Organization [facility] Address [address] [place] [address] Care Team Providers Care Data Processing Systems Consultant Name Role Phone William Cavazos MD, PhD Unavailable [phone] Karl Gonzalez DO Primary Care Provider Paula Tuttle RN Unavailable UnavailIsrael Armstrong RN Unavailable Unavailable Aman Mathias MD Primary Care Provider [phone] Paula Tuttle RN Unavailable UnavailWilliam Goncalves MD, PhD Unavailable [phone] Aman Mathias MD Primary Care Provider [phone] Buffy Chung CNP Primary Care Provider [phone] Source Comments In the event this information is protected by the Federal Confidentiality of Alcohol and Drug AbusePatient Records regulations: The Federal rules restrict any use of the information to criminally investigate or prosecute any alcohol or drug abuse patient.[facility] Encounter Details Date Type Department Care Team (Late st Contact Info) Description 06/30/2017 Patient Msg Medical Records [address] [place] [address] Provider, [facility] 07/01 Social History Tobacco Use Types [...] 06/08/2025 8:30 AM EST Results Only Main [place] [address] [address] [place] [address] STUDY PT 06/08/2025 9:30 AM EST Visit (SP) Office Hematology/Oncology [address] [place] [address] [place] [address] [place] [address] STUDY PT 06/08/2025 9:30 AM EST Nurse Visit Hematology/Oncology [address] [place] [address] Paula Tuttle, RN [address] [place] [address] STUDY PT 06/08/2025 9:45 AM EST Procedure Hematology/Oncology [address] [place] [address] EKG TO RESEARCH 06/08/2025 12:30 PM EST Office Visit Vascular Medicine [address] [place] [address] echo to research 09/12/2025 7:00 AM EDT Procedure Cardiology [address] [place] [address] Elevated troponin, history HCM 09/12/2025 7:45 AM EDT Office Visit Preventive Cardiology [address] [place] [address] Collins Beckman MD [address] [place] [address] Elevated troponin, history HCM documented as of this encounter Visit Diagnoses Not on filedocumented in this encounter Care Teams Data Processing Systems Consultant Relationship Specialty Start Date End Date RaghuyenniKarl aritaDO [address] [place] [address] PCP - General Family Medicine 03/12/16 04/30/20 Aman Mathias MD [address] [place] [address] PCP - General Family Medicine 05/01/20 09/02/21 Aman Mathias MD [address] [place] [address] PCP - General Family Medicine 09/03/21 09/14/23 Buffy Chung, NUTRITION CLUB AMBASSADOR [address] [place] [address] PCP - General Family Medicine 09/15/23 William Cavazos MD, PhD [address] [place] [address] Physician Hematology/Oncology 11/29/14 04/30/20 Paula Tuttle, MOISÉS [address] [place] [address] Research Nurse Hematology/Oncology 05/19/17 01/31/20 Israel Hanson, MOISÉS Specialty Process Environmental Technician Hematology/Oncology 03/10/20 04/30/20 Paula Tuttle, MOISÉS [address] [place] [address] Research Nurse Hematology/Oncology 06/05/20 [place] [address] [place] [address] Physician Hematology/Oncology 06/05/20 documented as of this encounter
--- OUTSIDE RECORDS SUMMARY | 2025-03-21 11:49 | XMS_ITS | Encounter Summary ---
Author Organization [facility] Address [address] [place] [address] Care Team Providers Care Proposal Review Analyst Name Role Phone Buffy Chung NP Unavailable [phone] Aman Mathias MD Primary Care Provider [phone] Encounter Details Date Type Department Care Team (Late st Contact Info) Description 06/21/2024 Orders Only [facility] [address] [facility] [place] [address] Dav Tobin W, OD [address] [place], [place] [id number] Social History Tobacco Use Types Packs/Day Years [...] [facility] [address] [place] [address] Yaniv Thompson, COMMANDING OFFICER GARAGE [address] [place], [place] [address] documented as of this encounter Procedures Procedure Name Priority Date/Time Associated Diagnosis Comments DIABETES EYE EXAM Routine 06/21/2024 2:31 PM EST DIABETIC RETINOPATHY SCREENING - OU - BOTH EYES Routine 06/21/2024 1:14 PM EST DIABETIC RETINOPATHY SCREENING - OU - BOTH EYES Routine 06/19/2024 1:15 PM EST documented in this encounter Results * Hm Diabetes Eye Exam (06/21/2024 2:31 PM EST) us Dav W Mahad OD HEALTH MAINTENANCE Final Resul t * Diabetic Retinopathy Screening - OU - Both Eyes (06/21/2024 1:14 PM EST) Anatomical Region Laterality Modality Head Other us Dav W [place] OD OPHTH PHOTOGRAPHY Final Result * Diabetic Retinopathy Screening - OU - Both Eyes (06/19/2024 1:15 PM EST) Anatomical Region Laterality Modality Head Other us Dav W [place] OD OPHTH PHOTOGRAPHY Final Result documented in this encounter Visit Diagnoses Not on filedocumented in this encounter Care Teams Proposal Review Analyst Relationship Specialty Start Date End Date Aman Mathias MD PCP - General Family Medicine 04/08/24 Buffy Chung NP Nurse Practitioner Family Medicine 08/07/23 documented as of this encounter
--- OUTSIDE RECORDS SUMMARY | 2025-03-21 11:49 | XMS_ITS | Encounter Summary ---
Author Organization [facility] Address [facility] [place] [address] Care Team Providers Care Non Ferrous Material Handler Name Role Phone Aman Mathias MD Primary Care Provider [phone] Palua Tuttle RN Unavailable [facility] William Clemons MD, PhD Unavailable [phone] Aman Mathias MD Primary Care Provider [phone] Buffy Chung CNP Primary Care Provider [phone] Source Comments In the event this information is protected by the Federal Confidentiality of Alcohol and Drug AbusePatient Records regulations: The Federal rules restrict any use of the information to criminally investigate or prosecute any alcohol or drug abuse patient.[facility] Encounter Details Date Type Department Care Team (Late st Contact Info) Description 05/02/2020 Patient Msg Angio [address] [place] [address] Provider, [facility]cf Pre procedure instructions 05/03 Social [...] 06/08/2025 8:30 AM EST Results Only Main [facility] [address] [address] [place] [address] STUDY PT 06/08/2025 9:30 AM EST Visit (SP) Office Hematology/Oncology [id number] [place] [address] [place] [address] [place] [address] STUDY PT 06/08/2025 9:30 AM EST Nurse Visit Hematology/Oncology [address] [place] [address] Paula Tuttle, RN [address] [place] [address] STUDY PT 06/08/2025 9:45 AM EST Procedure Hematology/Oncology [address] [place] [address] EKG TO RESEARCH 06/08/2025 12:30 PM EST Office Visit Vascular Medicine [address] [place] [id number] echo to research 09/12/2025 7:00 AM EDT Procedure Cardiology [address] [place] [address] Elevated troponin, history HCM 09/12/2025 7:45 AM EDT Office Visit Preventive Cardiology [address] [place] [phone] Collins Beckman MD [address] [place] [address] Elevated troponin, history HCM documented as of this encounter Visit Diagnoses Not on filedocumented in this encounter Care Teams Non Ferrous Material Handler Relationship Specialty Start Date End Date Aman Mathias MD [address] [place] [address] PCP - General Family Medicine 05/01/20 09/02/21 Aman Mathias MD [address] [place] [address] PCP - General Family Medicine 09/03/21 09/14/23 Buffy Chung, AIR BRAKE MECHANIC [address] [place] [address] PCP - General Family Medicine 09/15/23 Paula Tuttle, RN [address] [place] [address] Research Nurse Hematology/Oncology 06/05/20 [place] [address] [place] [address] Physician Hematology/Oncology 06/05/20 documented as of this encounter
--- OUTSIDE RECORDS SUMMARY | 2025-03-21 11:49 | XMS_ITS | Encounter Summary ---
Author Organization [facility] Address [address] [place] [address] Care Team Providers Care Laborer General Name Role Phone Buffy Chung NP Unavailable [phone] Aman Mathias MD Primary Care Provider [phone] Reason for Visit * Reason Comments Med Change Request Encounter Details Date Type Department Care Team (Late Contact Info) Description 08/11/2024 [facility]ill [facility] [address] [place] [address] Buffy Chung NP [address] [place] [address] Type 2 diabetes mellitus with hyperglycemia, with [...] Upcoming Encounters Date Type Department Care Team ([facility] Contact Info) Description 07/25/2025 8:15 AM EST Office Visit [facility] [address] [place] [address] Yaniv Thompson, OVERHEAD CRANE TRUCK LOADER [address] [place] [address] documented as of this encounter Visit Diagnoses Diagnosis Type 2 diabetes mellitus with hyperglycemia, with long-term current use of insulin (HCC) documented in this encounter Care Teams Laborer General Relationship Specialty Start Date End Date Aman Mathias MD PCP - General Family Medicine 04/08/24 Buffy Chung NP Nurse Practitioner Family Medicine 08/07/23 documented as of this encounter
--- OUTSIDE RECORDS SUMMARY | 2025-03-21 11:49 | XMS_ITS | Encounter Summary ---
Author Organization [facility] Address [address] [place] [address] Care Team Providers Care Cash Shortage Investigator Name Role Phone William Cavazos MD, PhD Unavailable [phone] Karl Gonzalez DO Primary Care Provider Paula Tuttle RN Unavailable UnavailIsrael Armstrong RN Unavailable Unavailable Aman Mathias MD Primary Care Provider [phone] Paula Tuttle RN Unavailable UnavailWilliam Goncalves MD, PhD Unavailable [phone] Aman Mathias MD Primary Care Provider [phone] Buffy Chung CNP Primary Care Provider [phone] Source Comments In the event this information is protected by the Federal Confidentiality of Alcohol and Drug AbusePatient Records regulations: The Federal rules restrict any use of the information to criminally investigate or prosecute any alcohol or drug abuse patient.[facility] Encounter Details Date Type Department Care Team (Late st Contact Info) Description 12/18/2017 Patient Msg Neurology [address] [place] [address] Provider, [facility] Confirming Sleep Study Social History [...] 06/08/2025 8:30 AM EST Results Only Main [place] [address] [address] [place] [address] STUDY PT 06/08/2025 9:30 AM EST Visit (SP) Office Hematology/Oncology [id number] [place] [address] [place] [address] [place] [address] STUDY PT 06/08/2025 9:30 AM EST Nurse Visit Hematology/Oncology [address] [place] [address] Paula Tuttle, MOISÉS [address] [place] [address] STUDY PT 06/08/2025 9:45 AM EST Procedure Hematology/Oncology [address] [place] [address] EKG TO RESEARCH 06/08/2025 12:30 PM EST Office Visit Vascular Medicine [address] [phone] echo to research 09/12/2025 7:00 AM EDT Procedure Cardiology [address] [place] [address] Elevated troponin, history HCM 09/12/2025 7:45 AM EDT Office Visit Preventive Cardiology [address] [place] [address] Collins Beckman MD [address] [place] [address] Elevated troponin, history HCM documented as of this encounter Visit Diagnoses Not on filedocumented in this encounter Care Teams Cash Shortage Investigator Relationship Specialty Start Date End Date William Gonzaleznis DO Shar [address] [place] [address] PCP - General Family Medicine 03/12/16 04/30/20 Aman Mathias MD [address] [place] [address] PCP - General Family Medicine 05/01/20 09/02/21 Aman Mathias MD [address] [place] [address] PCP - General Family Medicine 09/03/21 09/14/23 Buffy Chung, CALL CENTER RECEPTIONIST [address] [place] [address] PCP - General Family Medicine 09/15/23 William Cavazos MD, PhD [address] [place] [address] Physician Hematology/Oncology 11/29/14 04/30/20 Paula Tuttle, MOISÉS [address] [place] [address] Research Nurse Hematology/Oncology 05/19/17 01/31/20 Israel Hanson RN Specialty Gear Hobber Set Up Operator Hematology/Oncology 03/10/20 04/30/20 Paula Tuttle, MOISÉS [address] [place] [address] Research Nurse Hematology/Oncology 06/05/20 [place] [address] [place] [address] Physician Hematology/Oncology 06/05/20 documented as of this encounter
--- NOTE | 2025-03-21 11:53 | ECG_ITS ---
[facility] Test Date: 2025-03-21 Pat Name: DERRELL MERRITT Department: Room: - Gender: Male Library Media Specialist: : 1970 Requested By: 1030 Order Number: [id number] Reading MD: ROSA BLANCHARD M.D. Measurements Intervals [place] Rate: 73 P: 37 MO: 150 QRS: 52 QRSD: 96 T: 38 QT: 390 QTc: 416 Interpretive Statements 1100 Sinus rhythm 9110 normal ECG Compared to ECG 01/02/2021 00:16:43 T-wave abnormality no longer present Electronically Signed On 03-21-2025 12:59:41 EDT by ROSA BLANCHARD M.D.
--- NOTE | 2025-03-21 11:53 | XR_ITS ---
The [place] [id number] Patient Name: DERRELL MERRITT MRN: [id number] date: 1970 Sex: M Assigned Patient Location: ER Current Patient Location: ER Accession/Order Number: [id number] Exam Date: 03/21/2025 12:18 Report Date: 03/21/2025 12:40 At the request of: NABILA VALDOVINOS MD Procedure: XR chest 1V PORTABLE ERECT CHEST 1220 hours CLINICAL HISTORY: Chest pain and pressure COMPARISON: 01/02/2021 There is continued elevation the right hemidiaphragm. The cardiac and mediastinal contours are unchanged. There is no vascular congestion. No developing consolidation is seen. There is no effusion or pneumothorax. The osseous structures are intact. XR/XR chest 1V IMPRESSION: NO ACUTE FINDINGS Impression dictated by: Lina Spears M.D. 03/21/2025 12:40 PM Dictation Location: [place] [address] Electronically authenticated by: [id number] Y Date: 03/21/2025 12:40
--- NOTE | 2025-03-21 11:54 | ED.GENADUL1 ---
HPI HPI - General Adult General Chief complaint: Chest Pain Stated complaint: CHEST PRESSURE Time Seen by Provider: 03/21/25 11:45 Source: patient Mode of arrival: walk-in Limitations: no limitations History of Present Illness HPI narrative: 54-year-old male presented to the emergency department for chest pain. It is in the middle and right part of his upper chest at this time is had for 3 hours, waxing and waning. He has no history of CAD. No fever or productive cough or back pain. He is not complaining of shortness of breath. Related Data Home Medications ?Medication ?Instructions ?Recorded ?Confirmed insulin glargine 100 unit/mL (3 45 unit subcut BID 08/06/23 03/21/25 mL) subcutaneous pen (Lantus Solostar U-100 Insulin) lisinopril 20 mg tablet 20 mg PO DAILY 08/06/23 03/21/25 chemo trial drug 1 pill PO DAILY 09/11/23 03/21/25 amlodipine 10 mg tablet 10 mg PO QDAY 03/21/25 03/21/25 glipizide 5 mg tablet 5 mg PO BID 03/21/25 03/21/25 pravastatin 80 mg tablet 80 mg PO .qhs 03/21/25 03/21/25 Allergies Allergy/AdvReac Type Severity Reaction Status Date / Time No Known Drug Allergies Allergy Verified 03/21/25 11:44 Opioid HPI Opioid Management Most Recent Opioid Data: Last Pain Scale 0 Today, 11:46 Review of Systems ROS Narrative A ten point review of systems is negative except as noted above. PFSH PFSH Social History Smoking status: Never smoker Little interest or pleasure in doing things: not at all Feeling down, depressed, or hopeless: not at all Exam Narrative Exam Narrative: Nurses note and vital signs reviewed and patient is not hypoxic. General:The patient appears well and in no apparent distress.Patient is resting comfortably on cart. Skin:Warm, dry, no pallor noted.There is no rash noted. Head:Normocephalic, atraumatic Eye: Normal conjunctiva, no drainage Ears, Nose, Mouth, and Throat: oral mucosa is moist. Nares patent. Cardiovascular:Regular Rate and Rhythm Respiratory:Patient is in no distress, no accessory muscle use, lungs are clear to auscultation, no wheezing, rales or rhonchi Back:non-tender GI: Soft and nontender Musculoskeletal: Trace edema to both ankles Neurological: Awake and alert and oriented Psychiatric:Cooperative Constitutional Vital Signs, click to edit/add: Last Vital Signs Temp 97.9 F 03/21/25 11:46 Pulse 65 03/21/25 14:00 Resp 16 03/21/25 14:00 BP 149/78 H 03/21/25 13:30 Pulse Ox 95 03/21/25 13:30 O2 Del Method Room Air 03/21/25 11:46 Course Vital Signs Vital signs: Vital Signs Blood Pressure 178/96 H 03/21/25 11:44 Pulse Oximetry 97 03/21/25 11:44 Temperature 97.9 F 03/21/25 11:46 Pulse Rate 65 03/21/25 14:00 Respiratory Rate 16 03/21/25 14:00 Blood Pressure 149/78 H 03/21/25 13:30 Pulse Oximetry 95 03/21/25 13:30 Oxygen Delivery Method Room Air 03/21/25 11:46 Medical Decision Making MDM Narrative Medical decision making narrative: His workup including 2 sets of troponin is negative. D-dimer also normal. At this point I do not suspect acute coronary syndrome and he is being discharged home. Follow-up with his PCP as needed. Treatment diagnosis and follow-up were discussed with the patient. Differential Diagnosis Differential Diagnosis: STEMI, NSTEMI, chest wall pain, pneumothorax, PE Lab Data Lab results reviewed: Yes I reviewed the patient's lab results Labs: Lab Results 03/21/25 03/21/25 03/21/25 Range/Units 12:11 12:16 13:11 WBC 7.8 (4.0-11.0) 10^3/uL RBC 6.10 (4.70-6.10) 10^6/uL Hgb 16.5 (14.0-18.0) g/dL Hct 48.1 (42.0-54.0) % MCV 78.9 L (80.0-94.0) fL MCH 27.0 (25.9-34.0) pg MCHC 34.3 (29.9-35.2) g/dL RDW 13.2 (11.0-15.0) % Plt Count 273 (150-450) 10^3/uL MPV 9.8 (9.5-13.5) fL Neut % (Auto) 63.0 (43.0-75.0) % Lymph % (Auto) 21.2 (20.5-60.0) % [place] % (Auto) 6.7 (1.7-12.0) % Eos % (Auto) 7.1 H (0.9-7.0) % Baso % (Auto) 1.2 (0.2-2.0) % Neut # (Auto) 4.9 (1.4-6.5) 10^3/uL Lymph # (Auto) 1.7 (1.2-3.8) 10^3/uL [place] # (Auto) 0.5 (0.3-0.8) 10^3/uL Eos # (Auto) 0.6 (0.0-0.7) 10^3/uL Baso # (Auto) 0.1 (0.0-0.1) 10^3/uL Abs Immat Gran (auto) 0.06 H (0.00-0.03) 10^3/uL Imm/Tot Granulo (auto) 0.8 H (0.0-0.5) % D-Dimer <0.19 (<=0.59) mg/L FEU Sodium 134 L (136-145) mmol/L Potassium 4.2 (3.5-5.1) mmol/L Chloride 97 L (98-107) mmol/L Carbon Dioxide 25.0 (21.0-32.0) mmol/L Anion Gap 16.2 BUN 10.0 (7.0-18.0) mg/dL Creatinine 0.62 L (0.70-1.30) mg/dL Est GFR ( Amer) >60 (>=60 mL/min/1.73m^2) Est GFR (Non-Af Amer) >60 (>=60 mL/min/1.73m^2) BUN/Creatinine Ratio 16.1 Glucose 362 H (74-106) mg/dL Calcium 9.6 (8.5-10.1) mg/dL Troponin I High Sens 16.1 16.7 (4.0-76.1) pg/mL Imaging Data Chest x-ray: Radiologist's impression: ITS Impressions Chest X-Ray 03/21/25 11:53 IMPRESSION: NO ACUTE FINDINGS Impression dictated by: Lina Spears M.D. 03/21/2025 12:40 PM Dictation Location: [place] [address] Electronically authenticated by: [id number] Y Date: 03/21/2025 12:40 ECG Data Attestation: I personally reviewed and interpreted this ECG as follows: (EKG on my interpretation shows normal sinus rhythm with rate of 73 and no acute change.) Discharge Plan Discharge Chief Complaint: Chest Pain Clinical Impression: Chest pain Patient Disposition: Home, Self-Care Time of Disposition Decision: 14:15 Condition: Good Mode of Transportation: Private Vehicle Prescriptions / Home Meds: No Action glipizide 5 mg tablet 5 mg PO BID amlodipine 10 mg tablet 10 mg PO QDAY pravastatin 80 mg tablet 80 mg PO .qhs lisinopril 20 mg tablet 20 mg PO DAILY insulin glargine [Lantus Solostar U-100 Insulin] 100 unit/mL (3 mL) insulin pen 45 unit SUBCUT BID chemo trial drug 1 pill PO DAILY Print Language: Divehi Instructions: Chest Pain (ED) Referrals: Buffy Chung [facility] [Primary Care Provider, Family Practice] - 1 week
[2025-03-21] MEDS: ASPIRIN 81 MG TAB.CHEW 324 MG PO (12:12)
[2025-03-21] MEDS: NITROGLYCERIN 0.4 MG BOTTLE SL (12:13)
[2025-03-21 12:21] LABS: Hematocrit 48.1 % (42.0-54.0); Hemoglobin 16.5 g/dL (14.0-18.0); Immature Granulocytes Abs Auto 0.06 10^3/uL (0.00-0.03); Immature Granulocytes Pct Auto 0.8 % (0.0-0.5); Lymphocytes Absolute Auto 1.7 10^3/uL (1.2-3.8); Mean Corpuscular HGB Conc 34.3 g/dL (29.9-35.2); Mean Corpuscular Hemoglobin 27.0 pg (25.9-34.0); Mean Corpuscular Volume 78.9 fL (80.0-94.0); Platelet Count 273 10^3/uL (150-450); Red Blood Count 6.10 10^6/uL (4.70-6.10); White Blood Count 7.8 10^3/uL (4.0-11.0)
[2025-03-21 12:46] LABS: Anion Gap 16.2; Blood Urea Nitrogen 10.0 mg/dL (7.0-18.0); Calcium 9.6 mg/dL (8.5-10.1); Carbon Dioxide 25.0 mmol/L (21.0-32.0); Chloride 97 mmol/L (98-107); Estimated GFR (African America >60 (>=60 mL/min/1.73m^2); Estimated GFR (Non-African Ame >60 (>=60 mL/min/1.73m^2); Glucose 362 mg/dL (74-106); Potassium 4.2 mmol/L (3.5-5.1); Sodium 134 mmol/L (136-145)
== END 2025-03-21 14:32 | disposition home or self-care (01) ==
PROVIDERS: Emergency Provider Emergency Medicine; PCP Nurse Practitioner
DX: R07.89 Other chest pain (principal)
CPT/HCPCS: 36415; 71045; 80048; 84484; 85025; 85378; 93005; 99285